=== PATIENT | male | born 1945 | race Caucasian/White ===

== ENCOUNTER 2023-04-21 09:04 | Emergency (ER) | payer MEDICARE, SELFPAY ==
[2023-04-21] VITALS (51 sets, daily range): BP systolic 106–211; BP diastolic 62–104; PULSE 56–70; RESP 12–18; TEMP 36.3–36.7; O2SAT 87–100; BMI 26.6
--- NOTE | 2023-04-21 09:25 | XR_ITS ---
[address] [address] Patient Name: ANN RIVERA MRN: [id number] date: 1945 Sex: M Assigned Patient Location: ER Current Patient Location: ED.MAIN Accession/Order Number: [id number] Exam Date: 04/21/2023 09:30 Report Date: 04/21/2023 10:18 At the request of: CHALINO KAUR Procedure: XR shoulder RT min 2V EXAM: XR shoulder RT min 2V INDICATION: fall c/o pain. COMPARISON: None. TECHNIQUE: Right shoulder, 3 views. FINDINGS: No acute fracture. Dislocation of the acromioclavicular joint with distal clavicle overriding the acromion. The clavicle is elevated 2.7 cm above the base of the acromion. Mild degenerative changes of the glenohumeral joint. XR/XR shoulder RT min 2V IMPRESSION: Type V acromioclavicular joint injury. No fracture identified. Electronically authenticated by: MARTINE FELDER Date: 04/21/2023 10:18
[2023-04-21] MEDS: HYDROMORPHONE HCL 1 MG/ML CARTRIDGE IVP (10:04)
--- NOTE | 2023-04-21 10:04 | ED.UPPEXIN1 ---
HPI - Extremity Injury (Upper) General Chief Complaint: Extremity Injury, Upper Stated Complaint: FALL UPPER EXTREMITY INJURY RIGHT SHOULDER Time Seen by Provider: 04/21/23 09:15 Source: patient Mode of arrival: walk-in Limitations: no limitations History of Present Illness HPI narrative: patient fell in the bathroom last night and injured the right shoulder - he stated that he fell onto the right shoulder but did not hit his head, injure his neck or back or lose consciousness. This morning he could not move the right shoulder. he came to the ED for evaluation. Nothing taken at home for the pain. No prior right shoulder injury or surgery Related Data Previous Rx's Medication Instructions Recorded oxycodone-acetaminophen 5 mg-325 1 tab PO Q6H PRN pain #14 tabs 04/21/23 mg tablet (Percocet) Allergies Allergy/AdvReac Type Severity Reaction Status Date / Time No Known Drug Allergies Allergy Verified 04/21/23 09:20 PFSH PFSH Social History Smoking status: Never smoker Exam Narrative Exam Narrative: Nurses note and vital signs reviewed and patient is not hypoxic. afebrile General: The patient appears well and in no apparent distress. Patient is resting comfortably on cart. GCS = 15. Skin: Warm, dry, no pallor noted. Head: Normocephalic, atraumatic Neck: Supple, trachea mid-line. Full ROM and no cervical spinal tenderness. Eyes: PERRLA, EOMI ENT: No facial injury. Mallampati Class I Cardiovascular: Regular Rate and Rhythm Respiratory: Patient is in no distress, no accessory muscle use, lungs are clear to auscultation, no wheezing, rales or rhonchi Chest Wall: no tenderness, no flail chest, contusion, abrasion, or signs of trauma. Back: No thoracic or lumbar tenderness to palpation. Musculoskeletal: Deformity and step off right shoulder with tenderness at the distal right clavicle. no additional sign of long bone fracture, no right elbow, forearm, wrist or hand tenderness or swelling. Right radial pulse 2+. Moves distal right UE and remaining extremities in all modalities with 5/5 strength. 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 Psychiatric: Cooperative Constitutional Vital Signs, click to edit/add: Last Vital Signs Temp 97.4 F L 04/21/23 10:08 Pulse 61 04/21/23 13:20 Resp 13 04/21/23 10:10 BP 167/91 H 04/21/23 13:20 Pulse Ox 96 04/21/23 13:20 O2 Del Method Nasal Cannula 04/21/23 13:04 O2 Flow Rate 2 04/21/23 13:04 Course Vital Signs Vital signs: Vital Signs Pulse Rate 64 04/21/23 09:17 Respiratory Rate 18 04/21/23 09:17 Blood Pressure 142/84 H 04/21/23 09:17 Pulse Oximetry 99 04/21/23 09:17 Oxygen Delivery Method Room Air 04/21/23 09:17 Temperature 97.4 F L 04/21/23 10:08 Pulse Rate 61 04/21/23 13:20 Respiratory Rate 13 04/21/23 10:10 Blood Pressure 167/91 H 04/21/23 13:20 Pulse Oximetry 96 04/21/23 13:20 Oxygen Delivery Method Nasal Cannula 04/21/23 13:04 Oxygen Delivery Flow Rate 2 04/21/23 13:04 MDM - Extremity Injury (Upper) MDM Narrative Medical decision making narrative: Dislocated right shoulder was identified. Procedural sedation was obtained in order to perform closed reduction of dislocated right shoulder. Postreduction x-rays were obtained after the patient was placed in a sling and swath. The patient's right shoulder is able to be reduced but it keeps slipping out of place. I scheduled him for follow up with Dr De Anda - orthopedist - tomorrow at 9am. I prescribed percocet. He was instructed to keep the sling and swath on until his appointment tomorrow. was present when I reviewed the instructions. I spoke with Dr De Anda by phone and he asked me to get a right shoulder ct before the patient went home. He will review the result on Saturday. Imaging Data xr right shoulder: Radiologist's impression: Patient Name: ANN RIVERA MRN: [id number] date: 1945 Sex: M Assigned Patient Location: ER Current Patient Location: ED.MAIN Accession/Order Number: [id number] Exam Date: 04/21/2023 09:30 Report Date: 04/21/2023 10:18 At the request of: CHALINO KAUR Procedure: XR shoulder RT min 2V EXAM: XR shoulder RT min 2V INDICATION: fall c/o pain. COMPARISON: None. TECHNIQUE: Right shoulder, 3 views. FINDINGS: No acute fracture. Dislocation of the acromioclavicular joint with distal clavicle overriding the acromion. The clavicle is elevated 2.7 cm above the base of the acromion. Mild degenerative changes of the glenohumeral joint. IMPRESSION: Type V acromioclavicular joint injury. No fracture identified. Electronically authenticated by: MARTINE FELDER Date: 04/21/2023 10:18 post reduction right shoulder: Radiologist's impression: Patient Name: ANN RIVERA MRN: [id number] date: 1945 Sex: M Assigned Patient Location: ER Current Patient Location: ED.MAIN Accession/Order Number: [id number] Exam Date: 04/21/2023 10:35 Report Date: 04/21/2023 10:59 At the request of: CHALINO KAUR Procedure: XR shoulder RT min 2V EXAM: XR shoulder RT min 2V INDICATION: closed reduction right shoulder dislocation. COMPARISON: None. TECHNIQUE: Right shoulder, 2 views. FINDINGS: Improved alignment of the right acromioclavicular joint dislocation. The distal clavicle is no longer overriding the acromion. Improved superior displacement of the distal clavicle of 16 mm, previously 27 mm. No fracture identified. Mild degenerative changes of the glenohumeral joint. IMPRESSION: Improved alignment of the AC joint dislocation post reduction. Electronically authenticated by: MARTINE FELDER Date: 04/21/2023 10:59 ct right shoulder: Radiologist's impression: Patient Name: ANN RIVERA MRN: [id number] date: 1945 Sex: M Assigned Patient Location: ER Current Patient Location: ER Accession/Order Number: [id number] Exam Date: 04/21/2023 11:45 Report Date: 04/21/2023 12:49 At the request of: CHALINO KAUR Procedure: CT shoulder RT wo con EXAMINATION: CT shoulder RT wo con HISTORY: right shoulder dislocation COMPARISON: XR shoulder right 04/21/2023 TECHNIQUE: Multi-planar CT images were created without and/or with IV contrast according to examination type. Dose reduction techniques were achieved by using automated exposure control and/or adjustment of mA and/or kV according to patient size and/or use of iterative reconstruction technique. FINDINGS: BONES: Disruption of the acromioclavicular joint with elevation of the distal and of the clavicle 1.1 cm. Degenerative osteophytes along the margins and small separate bone fragment at inferior corner of distal end of clavicle. SOFT TISSUES: No edema, possibly blood products within adjacent soft tissues. EFFUSION: None visible. OTHER: Negative. IMPRESSION: 1. Right acromioclavicular joint separation with small corner fracture involving distal end of clavicle. The degree of dislocation has improved compared to today's original right shoulder radiographs. 2. Degenerative changes of the glenohumeral joint. Electronically authenticated by: BOB JUNG Date: 04/21/2023 12:49 Discharge Plan Discharge Chief Complaint: Extremity Injury, Upper Clinical Impression: Dislocation of shoulder region, Closed fracture of distal clavicle Patient Disposition: Home, Self-Care Time of Disposition Decision: 10:46 Prescriptions / Home Meds: New oxycodone-acetaminophen [Percocet] 5-325 mg tablet 1 tab PO Q6H PRN (Reason: pain) Qty: 14 0RF Instructions: Shoulder Dislocation (ED), Moderate Sedation (ED) Stand Alone Forms: Portal Instructions Referrals: Bob De Anda MD [Physician] - 04/22/23 9:00 am Discharge Date/Time: 04/21/23 13:41 Procedures ED Orthopedic Joint Reduction Orthopedic Joint Reduction Joint #1: Time out performed: Yes Side: right Joint reduction location: shoulder Analgesia: procedural sedation Shoulder technique used (if applicable): external rotation Technique used: direct manipulation Post-reduction neuro exam: intact Post-reduction vascular exam: intact Post-reduction x-ray obtained: Yes Splint applied: Yes Patient tolerated procedure: well Additional comments: procedural sedation: the patient was placed on bus driver/monitor with continuous pulse ox. He was given IV Zofran and IV Dilaudid preprocedure. Verbal and written consent was obtained after discussing the procedure, medications to be used, risks and benefits to the closed reduction of the right shoulder dislocation. Please see the procedural sedation form that I completed. Patient tolerated the sedation procedure well.
[2023-04-21] MEDS: ONDANSETRON PF 4 MG/2 ML VIAL IV (10:05)
[2023-04-21] MEDS: ETOMIDATE 20 MG/10 ML VIAL 15 MG IVP (10:24)
--- NOTE | 2023-04-21 10:32 | XR_ITS ---
[place] [id number] Patient Name: ANN RIVERA MRN: [id number] date: 1945 Sex: M Assigned Patient Location: ER Current Patient Location: ED.[facility] Accession/Order Number: [id number] Exam Date: 04/21/2023 10:35 Report Date: 04/21/2023 10:59 At the request of: CHALINO KAUR Procedure: XR shoulder RT min 2V EXAM: XR shoulder RT min 2V INDICATION: closed reduction right shoulder dislocation. COMPARISON: None. TECHNIQUE: Right shoulder, 2 views. FINDINGS: Improved alignment of the right acromioclavicular joint dislocation. The distal clavicle is no longer overriding the acromion. Improved superior displacement of the distal clavicle of 16 mm, previously 27 mm. No fracture identified. Mild degenerative changes of the glenohumeral joint. XR/XR shoulder RT min 2V IMPRESSION: Improved alignment of the AC joint dislocation post reduction. Electronically authenticated by: MARTINE FELDER Date: 04/21/2023 10:59
--- NOTE | 2023-04-21 11:32 | CT_ITS ---
The [address] [address] Patient Name: ANN RIVERA MRN: [id number] date: 1945 Sex: M Assigned Patient Location: ER Current Patient Location: Accession/Order Number: [id number] Exam Date: 04/21/2023 11:45 Report Date: 04/21/2023 12:49 At the request of: CHALINO KAUR Procedure: CT shoulder RT wo con EXAMINATION: CT shoulder RT wo con HISTORY: right shoulder dislocation COMPARISON: XR shoulder right 04/21/2023 TECHNIQUE: Multi-planar CT images were created without and/or with IV contrast according to examination type. Dose reduction techniques were achieved by using automated exposure control and/or adjustment of mA and/or kV according to patient size and/or use of iterative reconstruction technique. FINDINGS: BONES: Disruption of the acromioclavicular joint with elevation of the distal and of the clavicle 1.1 cm. Degenerative osteophytes along the margins and small separate bone fragment at inferior corner of distal end of clavicle. SOFT TISSUES: No edema, possibly blood products within adjacent soft tissues. EFFUSION: None visible. OTHER: Negative. CT/CT shoulder RT wo con IMPRESSION: 1. Right acromioclavicular joint separation with small corner fracture involving distal end of clavicle. The degree of dislocation has improved compared to today's original right shoulder radiographs. 2. Degenerative changes of the glenohumeral joint. Electronically authenticated by: CHAU JUNG Date: 04/21/2023 12:49
== END 2023-04-21 13:41 | disposition home or self-care (01) ==
PROVIDERS: Emergency Provider Emergency Medicine; PCP Internal Medicine
DX: S43.101A Unspecified dislocation of right acromioclavicular joint, initial encounter (principal); S42.031A Displaced fracture of lateral end of right clavicle, initial encounter for closed fracture; W19.XXXA Unspecified fall, initial encounter
CPT/HCPCS: 23650; 73030; 73200; 96374; 96375; 99152; 99285; J1170

== ENCOUNTER 2023-05-08 12:59 | Outpatient (OUT) | payer MEDICARE, SELFPAY ==
[2023-05-08 14:23] LABS: Estimated Average Glucose 120 mg/dL; Glycohemoglobin A1C 5.8 % (4.5-6.2)
[2023-05-08 14:28] LABS: Creatinine Urine Random 82.53 mg/dL (20.00-300.00); Microalbum Creatinine Ratio Ur 15.7 mg/g (0.0-29.9); Microalbumin Urine Random <1.3 mg/dL (<=30.0)
[2023-05-08 14:51] LABS: Alanine Aminotransferase 20 U/L (16-63); Albumin Globulin Ratio 1.2; Albumin Level 4.1 g/dL (3.4-5.0); Alkaline Phosphatase 54 U/L (46-116); Anion Gap 11.5; Aspartate Amino Transferase 14 U/L (15-37); BUN Creatinine Ratio 17.8; Bilirubin Total 0.6 mg/dL (0.2-1.0); Calcium 9.3 mg/dL (8.5-10.1); Carbon Dioxide 29.5 mmol/L (21.0-32.0); Chloride 102 mmol/L (98-107); Chol HDL Ratio 3.4; Cholesterol 162 mg/dL (<=200); Estimated GFR (African America >60 (>=60); Estimated GFR (Non-African Ame 60 (>=60); Globulin 3.5 g/dL; Glucose 134 mg/dL (74-106); HDL Cholesterol 47 mg/dL (40-60); LDL Cholesterol Calculated 96.2 mg/dL; Sodium 139 mmol/L (136-145); Total Protein 7.6 g/dL (6.4-8.2); Triglycerides 94 mg/dL (<=150); VLDL CHOLESTEROL 18.8 mg/dL
== END 2023-05-08 13:00 | disposition home or self-care (01) ==
LOC: LAB 13:03
PROVIDERS: PCP Internal Medicine; Visit Provider Internal Medicine
DX: E78.5 Hyperlipidemia, unspecified (principal); E11.9 Type 2 diabetes mellitus without complications; I10 Essential (primary) hypertension; E55.9 Vitamin D deficiency, unspecified
CPT/HCPCS: 36415; 80053; 80061; 82043; 82306; 82570; 83036

== ENCOUNTER 2023-11-22 10:46 | Outpatient (OUT) | payer MEDICARE, SELFPAY ==
--- OUTSIDE RECORDS SUMMARY | 2023-11-22 10:58 | XMS_ITS | CCD ---
Author Organization [facility] Care Team Providers Care Inseam Trimming Machine Operator Name Role Phone MANNIE NELSON Primary Care Physician [phone] Renea PARTIDA Attending Unavailable NILL, Renea Loomis Attending Unavailable NILL, Renea Loomis Attending Unavailable NELSON, DR MANNIE Pulido Primary Care Unavailable TIMMIS, DR CAST Admitting Unavailable TIMMIS, DR CAST Attending Unavailable TIMMIS, DR CAST Consulting Unavailable ELIAS, SANDY Consulting Unavailable PILAR II, NAVIN Consulting Unavailable FILUTZE, AKILA Consulting Unavailable NELSON, DR MANNIE Pulido Attending Unavailable NELSON, DR MANNIE Pulido Consulting Unavailable NELSON, DR MANNIE Pulido Primary Care Unavailable NELSON, DR MANNIE Pulido Admitting Unavailable NELSON, DR MANNIE Pulido Attending Unavailable NELSON, DR MANNIE Pulido Admitting Unavailable NELSON, DR MANNIE Pulido Consulting Unavailable NELSON, DR MANNIE Pulido Primary Care Unavailable WEST, DR QUANG Mccallum Consulting Unavailable NILL, DR MEIER Consulting Unavailable NELSON, DR MANNIE Pulido Primary Care Unavailable NILL, DR MEIER Admitting Unavailable NILL, DR MEIER Attending Unavailable GIRALDONELA Consulting Unavailable TIMMIS, DR CAST Admitting Unavailable NELSON, DR MANNIE Pulido Primary Care Unavailable TIMMIS, DR CAST Attending Unavailable TIMMIS, DR CAST Consulting Unavailable ZIEBER, DR CHAU Loomis Consulting Unavailable NILL, DR MEIER Admitting Unavailable NELSON, DR MANNIE Pulido Primary Care Unavailable NILL, DR MEIER Attending Unavailable NILL, DR MEIER Consulting Unavailable ELIAS, SANDY Consulting Unavailable ORA NOGUEIRA Consulting Unavailable BE BAUMAN Consulting Unavailable Leslie WELCH, Mannie De La Cruz Primary Care Provider Louise EVERETT, Dee Unavailable Jacquelyn WELCH, John Unavailable Gokul FRONT END SOFTWARE ENGINEER.RENTAL AGENT, Maryam Unavailable [phone] Paulino HORNER, Rafael Unavailable Yordan Feliz MD Unavailable [phone] Marysol Martinez Unavailable Unavailable Candida RD, Dee Unavailable Vidal WELCH, [facility] Primary Care Provider [phone], Dee Unavailable Paulino HORNER, Rafael Unavailable [phone] Vidal WELCH, [facility] Primary Care Provider [phone], [facility] Primary Care Unavailable [facility] Primary Care Unavailable ABHYANKAR, JOHN Referring Unavailable [facility] Primary Care Unavailable MARYAM HODGSON Referring Unavailable ABHYANKAR, JOHN Attending Unavailable [facility] Primary Care Unavailable ABHYANKAR, JOHN Referring Unavailable [facility] Primary Care Unavailable [facility], [facility] Primary Care Unavailable Yordan FELIZ Referring Unavailable [facility] Primary Care Unavailable [facility] Primary Care Unavailable MARYAM HODGSON Referring Unavailable ABHYANKAR, JOHN Attending Unavailable [facility] Primary Care Unavailable Yordan FELIZ Referring Unavailable Yordan FELIZ Attending Unavailable [facility] Primary Care Unavailable [facility] Primary Care Unavailable MARYAM HODGSON Referring Unavailable ABHYANKAR, JOHN Attending [facility] Unavailable Yordan FELIZ Referring Unavailable Yordan FEILZ Attending Unavailable [facility] Primary Care Unavailable [facility] Primary Care Unavailable MARYAM HODGSON Referring Unavailable ABHYANKAR, JOHN Attending Unavailable [facility] Primary Care Unavailable Yordan FELIZ Attending Unavailable [facility] Primary Care Unavailable GOKULMARYAM Referring Unavailable ABHYANKAR, JOHN Attending Unavailable [facility] Primary Care Unavailable Yordan FELIZ Attending Unavailable SERENE MORALES Attending Unavailable SERENE MORALES Attending Unavailable SHAIKH DRAKE Attending Unavailable SERENE MORALES Attending Unavailable SERENE MORALES Attending Unavailable SERENE MORALES Attending Unavailable SHAIKH DRAKE Referring Unavailable SERENE MORALES Attending Unavailable Allergies Allergy Classification Reported Allergen(s) Allergy Type Date of Onset Reaction(s) Facility (1 source) No Known Medication Allergies; Translations: [No Known Medication Allergies] Propensity to adverse reactions (disorder) [facility] Medications Current Medications Medication Drug Class(es) Dates Sig (Normalized) Sig (Original) aspirin 81 mg delayed release oral tablet (20 sources) Platelet Aggregation Inhibitor, Nonsteroidal Anti-inflammatory Drug Start: 04-18-2020 take 1 tablet by mouth once daily aspirin 81 mg Oral EC Tab 81 mg = 1 tab(s), Oral, Daily, Refills(s) 0 Start Date: 04/18/20 Status: Ordered Aspirin 81 mg ta b 81 mg every other day. 0 Active take 1 tablet by mouth once rachael y Aspirin 81 mg tab Take 81 mg by mouth once daily. 0 Active Comment on above: Take 81 mg by mouth once daily. 81 mg every other da y. cefuroxime 500 mg oral tablet (5 sources) Cephalosporin Antibacterial Start: 023 End: 023 take 1 tablet by mouth twice daily cefUROXime (CEFTIN) 500 mg tablet Take 1 tablet by mouth twice daily for 10 days. 20 tablet 0 10/01/2022 10/11/2022 Active Comment on above: Take 1 tablet by [facility] twice daily for 10 days. cholecalciferol 1.25 mg oral capsule (2 sources) Vitamin D Start: 024 take 1 capsule by mouth every week cholecalciferol, Vitamin D3, (VITAMIN D3) 1,250 mcg (50,000 unit) cap capsule Take 1 capsule by mouth one time a week. 0 10/01/2023 Active Comment on above: Take 1 capsule by [facility] one time a week. ergocalciferol 1.25 mg oral capsule (20 sources) Provitamin D2 Compound Start: 020 take 1 capsule by mouth every week ergocalciferol 50,000 unit capsule (VITAMIN D2, DRISDOL) TAKE 1 CAPSULE BY MOUTH WEEKLY 0 07/05/2022 Active Comment on above: TAKE [address] [facility] WEEKLY fenofibrate 134 mg oral capsule (20 sources) Peroxisome Proliferator Receptor alpha Agonist Start: take 1 capsule by mouth once daily fenofibrate (LOFIBRA) 134 mg capsule Take 134 mg by mouth once daily. 0 03/02/2016 Active Comment on above: Take 134 mg by mouth once daily. iv contrast (will be provided with radiology test) (4 sources) Start: End: iv contrast (will be provided with radiology test) Indications: 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) , Lung nodules CT Chest W -Inject, intravenously, once for 1 dose.No IV access, insert saline lock prior to the beginning of sedation, infusion, injection of imaging exam. Discontinue saline lock post exam. If Pt. has a central line or IVAD, may access for administration according to line specific nursing protocol. Once exam is complete flush line and de-access according to line specific nursing protocol in the CT contrast administration guidelines link. 1 Each 0 10/23/2023 10/24/2023 Active Start: 10-23-2023 End: 10-23-2023 inject 1 dose intravenously once, then inject 1 dose intravenously once iv contrast (will be provided with radiology test) Indications: 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) , Lung nodules Inject 1 Each intravenously one time only for [address] Neck W IVCON No IV access, insert saline lock prior to the sedation, infusion, injection for imaging exam. Discontinue saline lock post exam. If Pt. has a central line or IVAD, may access for administration according to line specific nursing protocol. Once exam is complete flush line and de-access according to line specific nursing protocol in the CT contrast administration guidelines link. 1 Each 0 10/23/2023 10/23/2023 Start: 03-20-2023 End: 03-21-2023 iv contrast (will be provide d with radiology test) Indications: 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) , Mass of right lung CT Chest W -Inject, intravenously, once for 1 dose.No IV access, insert saline lock prior to the beginning of sedation, infusion, injection of imaging exam. Discontinue saline lock post exam. If Pt. has a central line or IVAD, may access for administration according to line specific nursing protocol. Once exam is complete flush line and de-access according to line specific nursing protocol in the CT contrast administration guidelines link. 1 Each 0 03/20/2023 03/21/2023 Active Start: 02-06-2023 End: 02-07-2023 iv contrast (will be provide d with radiology test) CT Chest W -Inject, intravenously, once for 1 dose.No IV access, insert saline lock prior to the beginning of sedation, infusion, injection of imaging exam. Discontinue saline lock post exam. If Pt. has a central line or IVAD, may access for administration according to line specific nursing protocol. Once exam is complete flush line and de-access according to line specific nursing protocol in the CT contrast administration guidelines link. 1 Each 0 02/06/2023 02/07/2023 Active Comment on above: CT Chest W -Inject, intravenously, once for 1 dose.No IV access, insert saline lock prior to the beginning of sedation, infusion, injection of imaging exam. Discontinue saline lock post exam. If Pt. has a central line or IVAD, may access for administration according to line specific nursing protocol. Once exam is complete flush line and de-access according to line specific nursing protocol in the CT contrast administration guidelines link. Inject 1 Each intrav enously one time only for [address] Neck W IVCON No IV access, insert saline lock prior to the sedation, infusion, injection for imaging exam. Discontinue saline lock post exam. If Pt. has a central line or IVAD, may access for administration according to line specific nursing protocol. Once exam is complete flush line and de-access according to line specific nursing protocol in the CT contrast administration guidelines link. latanoprost 0.05 mg/ml ophthalmic solution (4 sources) Prostaglandin Analog Start: 05-01-20 23 take 1 drop(s) into the eye(s) at bedtime latanoprost (XALATAN) 0.005 % ophthalmic solution instill 1 (ONE) DROP IN BOTH EYES AT BEDTIME 0 05/01/2023 Active Comment on above: instill 1 (ONE) DROP IN BOTH EYES AT BEDTIME metFORMIN hydrochloride 500 mg oral tablet (20 sources) Biguanide Start: 06-12-20 22 take 1 tablet by mouth once daily metFORMIN (GLUCOPHAGE) 500 mg tablet Take 500 mg by mouth once daily. 0 06/12/2022 Active Start: 06-12-2022 take 2 tablets by mo uth once daily in the morning, then take 1 tablet by mouth in the evening metFORMIN (GLUCOPHAGE) 500 mg tablet TAKE 2 TABLETS BY MOUTH EVERY MORNING and TAKE 1 TABLET BY MOUTH IN THE EVENING 0 06/12/2022 Active Start: 04-18-2020 take 1 tablet by mk th in the evening metFORMIN (GLUCOPHAGE) 500 mg tablet Take 500 mg by mouth as directed. 1 AM/1 PM 0 06/12/2022 Active Comment on above: TAKE 2 TABLETS BY MO UTH EVERY MORNING and TAKE 1 TABLET BY MOUTH IN THE EVENING Take 500 mg by mouth as directed. 1 AM/1 PM Take 500 mg by mouth once daily. 24 hr metoprolol succinate 25 mg extended release oral tablet (20 sources) beta-Adrenergic Jose Start: 06-12-2022 take 1 tablet by mouth once daily metoprolol succinate ER (TOPROL XL) 25 mg 24 hr tablet Take 25 mg by mouth once daily. 0 06/12/2022 Active Start: 04-18-2020 take 1 tablet by mk th once daily Metoprolol succinate 25 mg ER Tablet 1 tab, Oral, Daily, Refills(s) 0 Start Date: 04/18/20 Status: Ordered Comment on above: Take 25 mg by mouth once daily. Completed/Discontinued Medications Medication Drug Class(es) Dates Sig (Normalized) Sig (Original) atenolol 25 mg oral tablet (4 sources) beta-Adrenergic Jose Start: 11-12-2012 End: 08-16-2022 take 1 tablet by mouth once daily ATENOLOL 25 mg tablet Take 25 mg by mouth once daily. 0 11/12/2012 08/16/2022 Discontinued (Discontinued by another Health Care Provider) Comment on above: Take 25 mg by mouth once daily. ciprofloxacin 500 mg oral tablet (7 sources) Quinolone Antimicrobial Start: 10-19-2022 End: 11-02-2022 take 1 tablet by mouth twice daily ciprofloxacin HCl (CIPRO) 500 mg tablet Take 1 tablet by mouth twice daily for 14 days. 28 tablet 0 10/19/2022 11/02/2022 Comment on above: Take 1 tablet by mk th twice daily for 14 days. ondansetron 8 mg oral tablet (20 sources) Serotonin-3 Receptor Antagonist Start: 08-21-2022 End: 05-08-2023 take 1 tablet by mouth every eight hours as needed ondansetron (ZOFRAN) 8 mg tablet Take 1 tablet by mouth every 8 hours as needed for nausea/vomiting. 90 tablet 1 08/21/2022 05/08/2023 Discontinued (Discontinued by Patient) Comment on above: Take 1 tablet by mk th every 8 hours as needed for nausea/vomiting. prochlorperazine 10 mg oral tablet (20 sources) Phenothiazine Start: 08-21-2022 End: 05-08-2023 take 1 tablet by mouth every six hours as needed prochlorperazine (COMPAZINE) 10 mg tablet Take 1 tablet by mouth every 6 hours as needed. 100 tablet 1 08/21/2022 05/08/2023 Discontinued (Discontinued by Patient) Comment on above: Take 1 tablet by mk th every 6 hours as needed. Problems Active Problems Problem Classification Problem Date Documented Da te Episodic/Chronic Calculus of urinary tract (1 source) Personal history of urinary calculi; Translations: [PERSONAL HISTORY OF URINARY CALCULI] Onset: 3 Episodic Cancer of colon (20 sources) Malignant tumor of colon; Translations: [Malignant neoplasm of colon, unspecified] Onset: 3 Resolved: 5 11-19-2012 Chronic Cancer of colon (9 sources) History of malignant neoplasm of colon; Translations: [Personal history of other malignant neoplasm of large intestine] Onset: 2 Episodic Cancer of head and neck (20 sources) Malignant neoplasm of base of tongue; Translations: [Malignant tumor of tongue] Onset: 3 Chronic Chronic kidney disease (15 sources) Chronic kidney disease stage 3; Translations: [Stage 3 chronic kidney disease, unspecified whether stage 3a or 3b CKD (HCC)] Onset: 3 Chronic Coronary atherosclerosis and other heart disease (4 sources) History of myocardial infarction; Translations: [Atherosclerotic heart disease of [place] coronary artery without angina pectoris] Onset: 3 04-18-2020 Chronic Diabetes mellitus without complication (8 sources) Type 2 diabetes mellitus; Translations: [Type 2 diabetes mellitus without complications] Onset: 2 04-18-2020 Chronic Disorders of lipid metabolism (4 sources) Hypercholesterolemia; Translations: [Pure hypercholesterolemia, unspecified] Onset: 3 04-18-2020 Chronic Esophageal disorders (3 sources) Gastroesophageal reflux disease; Translations: [Gastro-esophageal reflux disease without esophagitis] Onset: 3 04-18-2020 Chronic Essential hypertension (4 sources) Hypertensive disorder; Translations: [Essential (primary) hypertension] Onset: 3 04-18-2020 Chronic Hepatitis (2 sources) Nonalcoholic steatohepatitis 06-13-2022 Chronic Nutritional deficiencies (2 sources) Vitamin D deficiency 04-18-2020 Chronic Other aftercare (1 source) correction (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 of anticoagulants; Translations: [RESIDENTIAL CURRNT USE ANTICOAGULANTS] Onset: 3 Episodic Other aftercare (1 source) keno terminal operator (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 of oral hypoglycemic drugs; Translations: [LICENSED OPTICAL DISPENSER USE ORAL HYPOGLYCEMIC DX] Onset: 3 Episodic Other aftercare (1 source) keno terminal operator (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 of aspirin; Translations: [RESIDENTIAL CURRENT USE OF ASPIRIN] Onset: 3 Episodic Other and unspecified benign neoplasm (5 sources) History of polyp of colon; Translations: [Personal history of colonic polyps] Onset: 2 Episodic Other and unspecified benign neoplasm (1 source) Personal history of colonic polyps; Translations: [PERSONAL HISTORY OF COLONIC POLYPS] Onset: 3 Episodic Other and unspecified benign neoplasm (1 source) Benign neoplasm of ascending colon; Translations: [BENIGN NEOPLASM OF ASCENDING COLON] Onset: 3 Episodic Other and unspecified benign neoplasm (1 source) Benign neoplasm of descending colon; Translations: [BENIGN NEOPLASM OF DESCENDING COLON] Onset: 3 Episodic Other circulatory disease (2 sources) Raynaud's disease 04-18-2020 Chronic Other connective tissue disease (2 sources) Diastasis recti 04-20-2020 Episodic Other gastrointestinal disorders (1 source) Dysphagia, unspecified; Translations: [DYSPHAGIA UNSPECIFIED] Onset: 3 Episodic Other liver diseases (1 source) Fatty (change of) liver, not elsewhere classified; Translations: [FATTY CHANGE LIVER NEC] Onset: 2 Chronic Other lower respiratory disease (2 sources) Lung mass; Translations: [Other nonspecific abnormal finding of lung field] 02-06-2023 Episodic Other lower respiratory disease (2 sources) Multiple nodules of lung; Translations: [Other nonspecific abnormal finding of lung field] 02-06-2023 Episodic Other lower respiratory disease (1 source) Nodule of lung; Translations: [Solitary pulmonary nodule] 02-11-2023 Episodic Other lower respiratory disease (2 sources) Other nonspecific abnormal finding of lung field; Translations: [Lung nodules] Onset: 3 Episodic Other male genital disorders (2 sources) Disorder of prostate 04-18-2020 Episodic Other nutritional; endocrine; and metabolic disorders (9 sources) Disorder of carbohydrate metabolism; 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, unspecified] Onset: 3 04-18-2020 Chronic Other nutritional; endocrine; and metabolic disorders (2 sources) Overweight in adulthood with body mass index of 25 or more but less than 30 06-13-2022 Episodic Other screening for suspected conditions (not mental disorders or infectious disease) (1 source) Abnormal findings on diagnostic imaging of other specified body structures; Translations: [ABNORML FIND DX IMG OTH BODY STRUC] Onset: 3 Chronic Other upper respiratory disease (1 source) Unspecified voice and resonance disorder; Translations: [UNS VOICE AND RESONANCE DISORDER] Onset: 3 Episodic Peripheral and visceral atherosclerosis (2 sources) Arteriosclerotic vascular disease 04-18-2020 Chronic Thyroid disorders (5 sources) Iodine-deficiency related diffuse (endemic) goiter; Translations: [IODINE-DEFIC REL DIFFUSE GOITER] Onset: 2 Chronic Thyroid disorders (1 source) Disorder of thyroid gland; Translations: [Other specified disorders of thyroid] 05-08-2023 Episodic Unclassified (1 source) CONTACT W/AND (SUSP) EXPOS COVID-19; Translations: [CONTACT W/AND (SUSP) EXPOS COVID-19] Onset: 3 Past or Other Problems Problem Classification Problem Date Documented Da te Episodic/Chronic Diseases of white blood cells (19 sources) 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; Translations: [Agranulocytosis secondary to cancer chemotherapy] Onset: 10-19-2022 Resolved: 10-23-2023 Chronic Other male genital disorders (1 source) Disorder of prostate, unspecified; Translations: [DISORDER OF PROSTATE UNSPECIFIED] Onset: 03-01-2022 Episodic Results Test Name Value Interpretation Reference Range Facility 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 INTERVAL HISTORY: Doing well. Eating fairly well. Has some mild issues with phlegm, no hemoptysis. No fever. Energy level good. No neck pain or otalgia. LABORATORY: Latest Reference Range AND Units 10/16/23 10:46 10/23/23 10:52 Free T4 0.9 - 1.7 ng/dL 1.2 TSH 0.270 - 4.200 mIU/L 2.750 T3 79 - 165 ng/dL 93 WBC 3.70 - 11.00 k/uL 3.08 (L) RBC 4.20 - 6.00 m/uL 4.18 (L) Hemoglobin 13.0 - 17.0 g/dL 12.6 (L) Hematocrit 39.0 - 51.0 % 37.9 (L) Platelet Count 150 - 400 k/uL 183 MCV 80.0 - 100.0 fL 90.7 MCH 26.0 - 34.0 pg 30.1 MCHC 30.5 - 36.0 g/dL 33.2 MPV 9.0 - 12.7 fL 9.1 RDW-CV 11.5 - 15.0 % 13.8 DTYPE Auto Neut% % 71.2 Abs Neut (ANC) 1.45 - 7.50 k/uL 2.19 Lymph% % 15.6 Abs Lymph 1.00 - 4.00 k/uL 0.48 (L) [place]% % 10.4 Abs [place] <0.87 k/uL 0.32 Eosin% % 1.6 Abs Eosin <0.46 k/uL 0.05 Baso% % 0.6 Abs Baso <0.11 k/uL <0.03 Immature Gran % % 0.6 IMMATURE GRANS (ABS) <0.10 k/uL <0.03 NRBC /100 WBC 0.0 Absolute nRBC <0.01 k/uL <0.01 (L): Data is abnormally low RADIOLOGY: CT Neck 10/16/23: IMPRESSION: Primary: NI-RADS 1. Expected post-treatment changes in the neck without evidence of recurrent disease in the primary site. Neck: NI-RADS 1. No evidence of abnormal lymph nodes. CT Chest 10/16/23: 1. Stable appearance of patchy groundglass opacities in the left upper lobe. Stable 4 mm nodular opacity along the right major fissure. No new or enlarging nodules are seen. 2. Stable mildly prominent subcarinal node. No new bulky intrathoracic adenopathy. CT Chest 03/14/23: 1. On patient's prior PET/CT from 01/29/2023, there was a 2.3 x 2.2 cm solid hypermetabolic nodule in the anterior right upper lobe. On today's exam, this is moderately to markedly decreased in density and now represents an area of groundglass opacity measuring over an area of approximately 2.3 x 2.2 cm in size. If this has not undergone interval treatment, then this may represent an infectious/inflammato ry focus which is improving. There is an adjacent subcentimeter nodule which is also decreased in density. Finally, there is a 3 mm solid nodule in the anterior right lower lobe which was not clearly seen on the prior PET/CT. However, differences in technique limit the comparison. Would advise continued imaging follow-up with the next chest CT in 3 months. PET/CT 01/29/2023:1. Neck: No suspicious hypermetabolic foci. Posttreatment change. 2. Chest: New hypermetabolic right upper lobe lung nodule. Differential includes inflammatory/neoplast ic process. 3. Abdomen and pelvis: No evidence of FDG avid neoplastic process 4. Skeleton: No hypermetabolic osseous lesions ALLERGIES No Known Allergies MEDICATIONS: cholecalciferol, Vitamin D3, (VITAMIN D3) 1,250 mcg (50,000 unit) cap capsule Take 1 capsule by mouth one time a week. latanoprost (XALATAN) 0.005 % ophthalmic solution instill 1 (ONE) DROP IN BOTH EYES AT BEDTIME ergocalciferol 50,000 unit capsule (VITAMIN D2, DRISDOL) TAKE 1 CAPSULE BY MOUTH WEEKLY metFORMIN (GLUCOPHAGE) 500 mg tablet Take 500 mg by mouth once daily. metoprolol succinate ER (TOPROL XL) 25 mg 24 hr tablet Take 25 mg by mouth once daily. fenofibrate (LOFIBRA) 134 mg capsule Take 134 mg by mouth once daily. Aspirin 81 mg tab 81 mg every other day. REVIEW OF SYSTEMS: PAIN ASSESSMENT: Negative for pain, history of chronic pain, or current treatment for a chronic pain condition. NECK: Negative for goiter, pain or significant neck swelling RESPIRATORY: Negative for cough, hemoptysis, wheezing, COPD, dyspnea or shortness of breath CARDIOVASCULAR: Negative for chest pain, leg swelling, hypertension, CHF or palpitations GI: No nausea, vomiting, or diarrhea : No history of dysuria, frequency or incontinence MUSCULOSKELETAL: Negative for joint pain or swelling, back pain or muscle pain NEURO: No history of headaches, syncope, paralysis, seizures or tremors The remainder of the review of systems is negative. PHYSICAL EXAM: 11/06/23 0951 BP: 163/77 (more content not included)... Normal [facility] CNOVSPon 10-23-2023 CNOVS Visit (SP) Office ([place]) DKPEGGYMANISH D ([id number]) 1945 M Date Time Provider Department 10/23/23 10:45 AM JOHN ENGLAND During your visit today, we recorded the following information about you: Temperature Pulse Respiration Blood pressure 97.8 degrees 54/minute 16/minute 144/70 Weight Height 87.5 kg 1.669 m John England MD 10/23/2023 10:31 PM Signed NAME: Manish Root CLINIC NO.: [id number] DATE OF SERVICE: October 23, 2023 (Jacquelyn) Some elements in this clinic note that are critical to medical decision making have been carefully reviewed and included from a prior clinic note dated: June 19, 2023 (Jacquelyn) Referring Provider: Dr. Татьяна Feliz Additional Clinicians involved in Manish Yi Root's care: Serene Morales DIAGNOSIS: Base of Tongue squamous cell ca. ASSESSMENT: 77 year old man with base of tongue squamous cell carcinoma, p16 positive, in July 2022 following voice changes in June 2022. He has a prior history of colon cancer in 1999. July 31, 2022 - Stage : T3 N1a M0 Completed treatment and is eating better. Neutropenia resolved. January 2023 PET with right lung lesion - repeat imaging with CT chest @ 6 weeks March 2023 showed involution of the lesion and now only ground glass opacity. PLAN: CT Neck and Chest in 6 months Labs same day, include anemia workup RTC 1 week after to review - HPI: CASE HISTORY: Reverse Chronological Order 10/16/2023 - CT Neck AND Chest: Neck: NI-RADS 1. Expected post-treatment changes in the neck without evidence of recurrent disease in the primary site. No evidence of abnormal lymph nodes. Chest: Stable appearance of patchy groundglass opacities in the left upper lobe. Stable 4 mm nodular opacity along the right major fissure. No new or enlarging nodules are seen. Stable mildly prominent subcarinal node. No new bulky intrathoracic adenopathy. 06/12/2023 - CT Chest - Since 03/14/2023, near complete resolution of right upper lobe mass/groundglass opacification New patchy regions of groundglass opacification within the anterior left upper lobe, compatible with new sites of infection/inflammatio n. 03/14/2023 - CT Chest - On patient's prior PET/CT from 01/29/2023, there was a 2.3 x 2.2 cm solid hypermetabolic nodule in the anterior right upper lobe. On today's exam, this is moderately to markedly decreased in density and now represents an area of groundglass opacity measuring over an area of approximately 2.3 x 2.2 cm in size. If this has not undergone interval treatment, then this may represent an infectious/inflammato ry focus which is improving. There is an adjacent subcentimeter nodule which is also decreased in density. Finally, there is a 3 mm solid nodule in the anterior right lower lobe which was not clearly seen on the prior PET/CT. 01/29/2023 - PET/CT Chest: New hypermetabolic right upper lobe lung nodule. Differential includes inflammatory /neoplastic process 09/03/2022 - 10/08/2022 - Cisplatin total dose 240 mg/m2 with RT 07/31/2022 - Examination under anesthesia/panendosco py. Findings included a friable exophytic mass left base of tongue extending into the vallecula. No other significant findings on laryngoscopy. 07/27/2022 - CT neck with contrast: Demonstrated a 5 x 4.5 x 2.5 cm mass arising from the left base of tongue injecting into the hypopharynx and displacing the epiglottis posterior and inferior with narrowing of the hypopharynx. In addition a level 2 left-sided lymph node measuring 1.7 x 1.0 x 1.0 cm suspicious for metastatic disease. 06/2022 - voice changed and trouble swallowing. 02/2022 - started losing weight 1999 - Colon Ca Stage 3 - 2/5 LN + [place] regimen on protocol Updated Visit, October 23, 2023: Manish returns today with Jahaira. We discussed he recent CT scans - both appear stable. He has been continuing follow up with Dr. Morales, so we can space out his visits with me. Kidney function stable, WBC is lower and he is more anemic than in the past. He endorses drinking more water recently. Updated Visit, June 19, 2023: Manish presents with his Jahaira. He is doing well. Reviewed his scans with him and not new changes with prior resolution of abnormalities. Kidney function remains decreased but he doesn't drink much water ever. Updated Visit, March 20, 2023: Feels great and has recovered from upper respiratory infection. Reviewed CT and showed improvement. Updated Visit, February 06, 2023: Doing ok but has productive cough and vocal changes Reviewed PET showing a new consolidation in right lung that could be infectious / malignant. Will repeat CT Chest. He is anxious. Updated Visit, November 07, 2022: Manish returns with Jahaira. Eating is much better but (more content not included)... Normal [facility] T3 SerPl-mCncon 10-23-2023 T3 [Mass/Vol] 93 ng/dL Normal 79-165 [facility] Comment on above: Order Comment: Specbeverley beauchamp Type: BLOOD SPECIMEN Ordering Facility: [facility] Address: [address] [address] Performed By: #### 2 4323-8 #### [facility] CLIA [id number] [address] [place] [address] T4 Free SerPl-mCncon 024 Free T4 [Mass/Vol] 1.2 ng/dL Normal 0.9-1.7 [facility] Comment on above: Order Comment: Marleen beauchamp Type: BLOOD SPECIMEN Ordering Facility: [facility] Address: [address] [address] Performed By: #### 2 4323-8 #### [facility] CLIA [id number] [address] [place] [address] TSH SerPl-aCncon 10-23-2023 TSH Qn 2.750 m[IU]/L Normal 0.270-4.200 [facility] Comment on above: Order Comment: Speci men Type: BLOOD SPECIMEN Ordering Facility: [facility] Address: [address] [address] Performed By: #### 2 4323-8 #### [facility] CLIA [id number] [address] [place] [address] 66500 CBC W Auto Differential pane l (Bld)on 10-16-2023 Basophils (Bld) [#/Vol] 10*3/uL Normal <0.11 [facility] Comment on above: Order Comment: Speci men Type: BLOOD SPECIMEN Ordering Facility: [facility] Address: [address] [address] Performed By: #### 2 4323-8 #### [facility] CLIA [id number] [address] [place] [address] 61035 Basophils/100 WBC (Bld) 0.6 % Normal [facility] Comment on above: Order Comment: Speci men Type: BLOOD SPECIMEN Ordering Facility: [facility] Address: [address] [address] Performed By: #### 2 4323-8 #### [facility] CLIA [id number] [address] [place] [address] 54097 Differential cell count method Nom (Bld) Auto Normal [facility] Comment on above: Order Comment: Speci men Type: BLOOD SPECIMEN Ordering Facility: [facility] Address: [address] [address] Performed By: #### 2 4323-8 #### [facility] CLIA [id number] [address] [place] [address] 51244 Eosinophils (Bld) [#/Vol] 0.05 10*3/uL Normal <0.46 [facility] Comment on above: Order Comment: Speci men Type: BLOOD SPECIMEN Ordering Facility: [facility] Address: [address] [address] Performed By: #### 2 4323-8 #### [facility] CLIA [id number] [address] [place] [address] 85089 Eosinophils/100 WBC (Bld) 1.6 % Normal [facility] Comment on above: Order Comment: Speci men Type: BLOOD SPECIMEN Ordering Facility: [facility] Address: [address] [address] Performed By: #### 2 4323-8 #### [facility] CLIA [id number] [address] [place] [address] 41450 Erythrocyte distribution width (RBC) [Ratio] 13.8 % Normal 11.5-15.0 [facility] Comment on above: Order Comment: Speci men Type: BLOOD SPECIMEN Ordering Facility: [facility] Address: [address] [address] Performed By: #### 2 4323-8 #### [facility] CLIA [id number] [address] [place] [address] 16588 Hematocrit (Bld) [Volume fraction] 37.9 % Low 39.0-51.0 [facility] Comment on above: Order Comment: Speci men Type: BLOOD SPECIMEN Ordering Facility: [facility] Address: [address] [address] Performed By: #### 2 4323-8 #### [facility] CLIA [id number] [address] [place] [address] 25960 Hemoglobin (Bld) [Mass/Vol] 12.6 g/dL Low 13.0-17.0 [facility] Comment on above: Order Comment: Speci men Type: BLOOD SPECIMEN Ordering Facility: [facility] Address: [address] [address] Performed By: #### 2 4323-8 #### [facility] CLIA [id number] [address] [place] [address] 69392 Immature granulocytes (Bld) [#/Vol] 10*3/uL Normal <0.10 [facility] Comment on above: Order Comment: Speci men Type: BLOOD SPECIMEN Ordering Facility: [facility] Address: [address] [address] Performed By: #### 2 4323-8 #### [facility] CLIA [id number] [address] [place] [address] 58557 Immature granulocytes/100 WBC (Bld) 0.6 % Normal [facility] Comment on above: Order Comment: Speci men Type: BLOOD SPECIMEN Ordering Facility: [facility] Address: [address] [place] [address] Performed By: #### 2 4323-8 #### [facility] CLIA [id number] [address] [place] [address] 09881 Lymphocytes (Bld) [#/Vol] 0.48 10*3/uL Low 1.00-4.00 [facility] Comment on above: Order Comment: Speci men Type: BLOOD SPECIMEN Ordering Facility: [facility] Address: [address] [place] [address] Performed By: #### 2 4323-8 #### [facility] CLIA [id number] [address] [place] [address] 65192 Lymphocytes/100 WBC (Bld) 15.6 % Normal [facility] Comment on above: Order Comment: Speci men Type: BLOOD SPECIMEN Ordering Facility: [facility] Address: [address] [place] [address] Performed By: #### 2 4323-8 #### [facility] CLIA [id number] [address] [place] [address] 10308 MCH (RBC) [Entitic mass] 30.1 pg Normal 26.0-34.0 [facility] Comment on above: Order Comment: Speci men Type: BLOOD SPECIMEN Ordering Facility: [facility] Address: [address] [place] [address] Performed By: #### 2 4323-8 #### [facility] CLIA [id number] [address] [place] [address] 02183 MCHC (RBC) [Mass/Vol] 33.2 g/dL Normal 30.5-36.0 [facility] Comment on above: Order Comment: Speci men Type: BLOOD SPECIMEN Ordering Facility: [facility] Address: [address] [address] Performed By: #### 2 4323-8 #### [facility] CLIA [id number] [address] [place] [address] 93158 MCV (RBC) [Entitic vol] 90.7 fL Normal 80.0-100.0 [facility] Comment on above: Order Comment: Speci men Type: BLOOD SPECIMEN Ordering Facility: [facility] Address: [address] [address] Performed By: #### 2 4323-8 #### [facility] CLIA [id number] [address] [place] [address] 31984 Monocytes (Bld) [#/Vol] 0.32 10*3/uL Normal <0.87 [facility] Comment on above: Order Comment: Speci men Type: BLOOD SPECIMEN Ordering Facility: [facility] Address: [address] [address] Performed By: #### 2 4323-8 #### [facility] CLIA [id number] [address] [place] [address] 13104 Monocytes/100 WBC (Bld) 10.4 % Normal [facility] Comment on above: Order Comment: Speci men Type: BLOOD SPECIMEN Ordering Facility: [facility] Address: [address] [address] Performed By: #### 2 4323-8 #### [facility] CLIA [id number] [address] [place] [address] 20631 Neutrophils (Bld) [#/Vol] 2.19 10*3/uL Normal 1.45-7.50 [facility] Comment on above: Order Comment: Speci men Type: BLOOD SPECIMEN Ordering Facility: [facility] Address: [address] [address] Performed By: #### 2 4323-8 #### [facility] CLIA [id number] [address] [place] [address] 91415 Neutrophils/100 WBC (Bld) 71.2 % Normal [facility] Comment on above: Order Comment: Speci men Type: BLOOD SPECIMEN Ordering Facility: [facility] Address: [address] Performed By: #### 2 4323-8 #### [facility] CLIA [id number] [address] [place] [address] 55573 Nucleated RBC (Bld) [#/Vol] 10*3/uL Normal <0.01 [facility] Comment on above: Order Comment: Speci men Type: BLOOD SPECIMEN Ordering Facility: [facility] Address: [address] [address] Performed By: #### 2 4323-8 #### [facility] CLIA [id number] [address] [place] [address] 37070 Nucleated RBC/100 WBC (Bld) [Ratio] 0.0 /100 WBC Normal [facility] Comment on above: Order Comment: Speci men Type: BLOOD SPECIMEN Ordering Facility: [facility] Address: [address] Performed By: #### 2 4323-8 #### [facility] CLIA [id number] [address] [place] [address] 18007 Platelet mean volume (Bld) [Entitic vol] 9.1 fL Normal 9.0-12.7 [facility] Comment on above: Order Comment: Speci men Type: BLOOD SPECIMEN Ordering Facility: [facility] Address: [address] Performed By: #### 2 4323-8 #### [facility] CLIA [id number] [address] [place] [address] 96572 Platelets (Bld) [#/Vol] 183 10*3/uL Normal 150-400 [facility] Comment on above: Order Comment: Speci men Type: BLOOD SPECIMEN Ordering Facility: [facility] Address: [address] Performed By: #### 2 4323-8 #### [facility] CLIA [id number] [address] [place] [address] RBC (Bld) [#/Vol] 4.18 10*6/uL Low 4.20-6.00 [facility] Comment on above: Order Comment: Speci men Type: BLOOD SPECIMEN Ordering Facility: [facility] Address: [address] [place] [address] Performed By: #### 2 4323-8 #### [facility] CLIA [id number] [address] [place] [address] WBC (Bld) [#/Vol] 3.08 10*3/uL Low 3.70-11.00 [facility] Comment on above: Order Comment: Speci men Type: BLOOD SPECIMEN Ordering Facility: [facility] Address: [address] [place] [address] Performed By: #### 2 4323-8 #### [facility] CLIA [id number] [address] [place] [address] 72471 Kane 10-16-2023 CNPN Telephone (HEMASA) MANISH ROOT ([id number]) 1945 M Date Time Provider Department 10/16/23 RAFAEL MENG HEMASA During your visit today, we recorded the following information about you: Rafael Meng RN 10/16/2023 1:17 PM Signed Pt had labs drawn today. Requests that the results be faxed to his PCP, Dr Drake. Results of CBC and CMP faxed to [phone]. Rafael Meng RN Allergies As of Date: 10/16/2023 (No Known Allergies) Date Reviewed: 06/19/2023 Reviewed by: Lala Hooper MA - Fully Assessed Reason for Visit: Care Coordination [3491] Cmt: Results Prescriptions as of 10/16/2023 - latanoprost (XALATAN) 0.005 % ophthalmic solution instill 1 (ONE) DROP IN BOTH EYES AT BEDTIME - ergocalciferol 50,000 unit capsule (VITAMIN D2, DRISDOL) TAKE 1 CAPSULE BY MOUTH WEEKLY - metFORMIN (GLUCOPHAGE) 500 mg tablet Take 500 mg by mouth once daily. - metoprolol succinate ER (TOPROL XL) 25 mg 24 hr tablet Take 25 mg by mouth once daily. - fenofibrate (LOFIBRA) 134 mg capsule Take 134 mg by mouth once daily. - Aspirin 81 mg tab 81 mg every other day. 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 Cancer of the base of the tongue. Technique: Spiral CT acquisition of the chest from the thoracic inlet to the upper abdomen following IV contrast. MQ: CTCW_6 Contrast: 100 mL Omnipaque [address] Radiation dose: Integrated Dose-length product (DLP) for this visit = 975 mGy*cm CT Dose Reduction Employed: Automated exposure control (AEC) Comparison: CT chest performed 06/12/2023 RESULT: Limitations: None. Lines, tubes, and devices: None. Lung parenchyma and airways: There is mild dependent atelectasis. No lobar consolidation is visualized. Stable patchy groundglass opacity is noted in the left upper lobe (4:36). Previously described right upper lobe nodular opacity is less conspicuous when compared to prior exam. There is a stable 4 mm nodular opacity along the right major fissure (4:105). No new or enlarging nodules are seen. The central airways are widely patent. Pleural space: No pleural effusion. No pleural thickening. Lower neck, lymph nodes, and mediastinum: The thyroid gland is unremarkable. A subcarinal node is seen measuring up to 1.1 cm, similar to prior exam. No new bulky intrathoracic adenopathy is seen. Heart, pericardium, and thoracic vessels: The thoracic aorta and main pulmonary artery are normal in caliber. The cardiac chambers are normal in size. Coronary artery atherosclerotic calcification is noted. No pericardial effusion or thickening. Bones and soft tissues: Multilevel degenerative changes seen in the thoracic spine. Superficial soft tissues are unremarkable. Upper abdomen: No abnormality in the imaged upper abdomen. Localizer images: No additional findings. IMPRESSION: 1. Stable appearance of patchy groundglass opacities in the left upper lobe. Stable 4 mm nodular opacity along the right major fissure. No new or enlarging nodules are seen. 2. Stable mildly prominent subcarinal node. No new bulky intrathoracic adenopathy. Transcribe Date/Time: Oct 17 2023 8:33A Dictated by: CORINA PITTMAN MD This examination was interpreted and the report reviewed and electronically signed by: CORINA PITTMAN MD on Oct 17 2023 9:08AM EST Thank you for allowing us to participate in the care of your patient. Should there be any questions regarding this interpretation, please call [phone]. If you are unable to reach us at the number above, please feel free to contact [facility] at [phone]. 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 Dose-Length Product (DLP): 975 mGy*cm CT Dose Reduction Employed: Automated exposure control (AEC) COMPARISON: PET/CT 01/29/2023, outside hospital CT neck 07/27/2022 RESULT: Post-treatment changes: Asymmetric prominence of the LEFT vallecula and LEFT inferior glossotonsillar sulcus along LEFT base of tongue at site of previously noted enhancing lesion on prior CT neck 07/27/2022. No residual enhancing soft tissue in this region or elsewhere to suggest residual/recurrent disease. Extensive posttreatment/postrad iation changes including oropharyngeal/hypopha ryngeal mucosal edema, bilateral submandibular gland heterogeneity and atrophy, platysmal muscle thickening, and minimal parapharyngeal fat stranding. Lymph nodes: No cervical lymphadenopathy by size, number or morphologic criteria. Small nonspecific lymph nodes are scattered throughout the neck. Aerodigestive tract: The oral cavity is partially obscured by artifact from dental amalgam. The nasal cavities, naso-oropharynx, pharyngeal mucosal space, laryngeal structures and infraglottic trachea are otherwise within normal limits. Major salivary glands: Hyperattenuation of atrophy of the bilateral submandibular glands as detailed above. Bilateral parotid glands appear remarkable. Thyroid gland: Within normal limits. Carotid space: Atherosclerotic changes to the bilateral carotid bifurcations and proximal cervical ICAs resulting in mild short segment narrowing, although the study is not optimized for carotid artery assessment. Bilateral jugular veins appear patent. Intracranial contents: Mild generalized volume loss with commensurate ventriculomegaly. No visualized mass effect or abnormal enhancement. Paranasal sinuses, middle ears, mastoids: Clear. Orbits: Bilateral pseudophakia. Otherwise, within normal limits. Bones: No suspicious osseous lesions in the imaged calvarium, skull base and spine. Straightening of the normal cervical lordosis. Multilevel degenerative disc disease and ossification of the posterior longitudinal ligament resulting in moderate spinal canal narrowing at C4-C6. Multilevel uncovertebral hypertrophy and facet arthropathy resulting in up to moderate to severe neuroforaminal narrowing at C3-C7. Temporomandibular joints are maintained. Lungs: Imaged lungs are clear of consolidation or mass. Please see concurrent CT chest for complete evaluation of the intrathoracic contents. IMPRESSION: Primary: NI-RADS 1. Expected post-treatment changes in the neck without evidence of recurrent disease in the primary site. ? Neck: NI-RADS 1. No evidence of abnormal lymph nodes. Transcribe Date/Time: Oct 16 2023 1:19P Dictated by: SHIV MANZANO MD This examination was interpreted and the report reviewed and electronically signed by: SHIV MANZANO MD on Oct 16 2023 1:29PM EST Thank you for allowing us to participate in the care of your patient. Should there be any questions regarding this interpretation, please call [phone]. If you are unable to reach us at the number above, please feel free to contact [facility] at [phone]. [id number] N Normal [facility] Comprehensive metabolic 2000 panelon 10-16-2023 Albumin [Mass/Vol] 4.4 g/dL Normal 3.9-4.9 [facility] Comment on above: Order Comment: Speci men Type: BLOOD SPECIMENOrdering Facility: [facility] Address: [address] [place] [address] Performed By: #### 2 4323-8 ####[facility] [id number] [place] [address] ALP [Catalytic activity/Vol] 48 U/L Normal 38-113 [facility] Comment on above: Order Comment: Speci men Type: BLOOD SPECIMENOrdering Facility: [facility] Address: [address] [place] [address] Performed By: #### 2 4323-8 ####[facility] [id number] [place] [address] ALT [Catalytic activity/Vol] 13 U/L Normal 10-54 [facility] Comment on above: Order Comment: Speci men Type: BLOOD SPECIMENOrdering Facility: [facility] Address: [address] [place] [address] Performed By: #### 2 4323-8 ####[facility] [id number] [place] [address] Anion gap [Moles/Vol] 11 mmol/L Normal 9-18 [facility] Comment on above: Order Comment: Speci men Type: BLOOD SPECIMENOrdering Facility: [facility] Address: [address] [place], [place] [address] Performed By: #### 2 4323-8 ####[facility] [facility] [id number] [place] [address] AST [Catalytic activity/Vol] 15 U/L Normal 14-40 [facility] Comment on above: Order Comment: Speci men Type: BLOOD SPECIMENOrdering Facility: [facility] Address: [address] [place] [address] Performed By: #### 2 4323-8 ####[facility] LABCLIA [id number] [place] [address] Bilirubin [Mass/Vol] 0.5 mg/dL Normal 0.2-1.3 [facility] Comment on above: Order Comment: Speci men Type: BLOOD SPECIMENOrdering Facility: [facility] Address: [address] [place] [address] Performed By: #### 2 4323-8 ####[facility] LABCLIA [id number] [place] [address] Calcium [Mass/Vol] 9.7 mg/dL Normal 8.5-10.2 [facility] Comment on above: Order Comment: Speci men Type: BLOOD SPECIMENOrdering Facility: [facility] Address: [address] [place] [address] Performed By: #### 2 4323-8 ####[facility] LABCLIA [id number] [place] [address] Chloride [Moles/Vol] 105 mmol/L Normal 97-105 [facility] Comment on above: Order Comment: Speci men Type: BLOOD SPECIMENOrdering Facility: [facility] Address: [address] [place] [address] Performed By: #### 2 4323-8 ####[facility] LABCLIA [id number] [place] [address] CO2 [Moles/Vol] 26 mmol/L Normal 22-30 [facility] Comment on above: Order Comment: Speci men Type: BLOOD SPECIMENOrdering Facility: [facility] Address: [address] [place] [address] Performed By: #### 2 4323-8 ####[facility] LABCLIA [id number] [place] [address] Creatinine [Mass/Vol] 1.34 mg/dL High 0.73-1.22 [facility] Comment on above: Order Comment: Speci men Type: BLOOD SPECIMENOrdering Facility: [facility] Address: [address] [place] [address] Performed By: #### 2 4323-8 ####[facility] LABCLIA [id number] [place] [address] Creatinine and Glomerular filtration rate.predicted panel (S/P/Bld) 54 mL/min/1.73m??? Low >=60 [facility] Comment on above: Order Comment: Speci men Type: BLOOD SPECIMENOrdering Facility: [facility] Address: [address] [place] [address] Result Comment: Felicity mated Glomerular Filtration Rate (eGFR) is calculated using the 2020 CKD-EPI creatinine equation. This equation utilizes serum creatinine, sex, and age as parameters. The creatinine assay has traceable calibration to isotope dilution-mass spectrometry. Refer to KDIGO guidelines for clinical interpretation. In patients with unstable renal function, e.g. those with acute kidney injury, the eGFR may not accurately reflect actual GFR. Performed By: #### 2 4323-8 ####[facility] LABCLIA [id number] [place] [address] Glucose [Mass/Vol] 135 mg/dL High 74-99 [facility] Comment on above: Order Comment: Speci men Type: BLOOD SPECIMENOrdering Facility: [facility] Address: [address] [place] [address] Result Comment: The [place] [employer] (ADA) provides guidance for cutoff values for fasting glucose and random glucose. The ADA defines fasting as no caloric intake for at least 8 hours. Fasting plasma glucose results between 100 to 125 mg/dL indicate increased risk for diabetes (prediabetes). Fasting plasma glucose results greater than or equal to 126 mg/dL meet the criteria for diagnosis of diabetes. In the absence of unequivocal hyperglycemia, results should be confirmed by repeat testing. In a patient with classic symptoms of hyperglycemia or hyperglycemic crisis, random plasma glucose results greater than or equal to 200 mg/dL meet the criteria for diagnosis of diabetes. Reference: Standards of Medical Care in Diabetes 2016, [place] [employer]. Diabetes Care. 2016.39(Suppl 1). Performed By: #### 2 4323-8 ####[facility]CLIA [id number] [place] [address] Potassium [Moles/Vol] 4.5 mmol/L Normal 3.7-5.1 [facility] Comment on above: Order Comment: Speci men Type: BLOOD SPECIMENOrdering Facility: [facility] Address: [address] [place] [address] Performed By: #### 2 4323-8 ####[facility] LABCLIA [id number] [place] [address] Protein [Mass/Vol] 6.7 g/dL Normal 6.3-8.0 [facility] Comment on above: Order Comment: Speci men Type: BLOOD SPECIMENOrdering Facility: [facility] Address: [address] [place] [address] Performed By: #### 2 4323-8 ####[facility]CLIA [id number] [place] [address] Sodium [Moles/Vol] 142 mmol/L Normal 136-144 [facility] Comment on above: Order Comment: Speci men Type: BLOOD SPECIMENOrdering Facility: [facility] Address: [address] [id number] Performed By: #### 2 4323-8 ####[facility]CLIA [id number] [place] [address] Urea nitrogen [Mass/Vol] 22 mg/dL Normal 9-24 [facility] Comment on above: Order Comment: Speci men Type: BLOOD SPECIMENOrdering Facility: [facility] Address: [facility] [place] [address] Performed By: #### 2 4323-8 ####[facility] [id number] [place] [address] CNOVSPon 06-19-2023 CNOVSP Visit (SP) Office (HEMASA) MANISH ROOT ([id number]) 1945 M Date Time Provider Department 06/19/23 9:45 AM JOHN ENGLAND During your visit today, we recorded the following information about you: Temperature Pulse Respiration Blood pressure 97.2 degrees 54/minute 16/minute 140/69 Weight 82.9 kg John England MD 06/20/2023 8:01 AM Signed NAME: Manish Root NO.: [id number] DATE OF SERVICE: June 19, 2023 (Jacquelyn) Some elements in this clinic note that are critical to medical decision making have been carefully reviewed and included from a prior clinic note dated: March 20, 2023 (Jacquelyn) Referring Provider: Dr. Татьяна Feliz Additional Clinicians involved in Manish Root's care: Serene Morales DIAGNOSIS: Base of Tongue squamous cell ca. 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 He has a prior history of colon cancer in 1999. July 31, 2022 - Stage : T3 N1a M0 Completed treatment and is eating better. Neutropenia resolved. January 2023 PET with right lung lesion - repeat imaging with CT chest @ 6 weeks March 2023 showed involution of the lesion and now only ground glass opacity. PLAN: CT Neck and Chest in 4 months Labs same day RTC 1 week after to review. - HPI: CASE HISTORY: Reverse Chronological Order 06/12/2023 - CT Chest - Since 03/14/2023, near complete resolution of right upper lobe mass/groundglass opacification New patchy regions of groundglass opacification within the anterior left upper lobe, compatible with new sites of infection/inflammatio n. 03/14/2023 - CT Chest - 1. On patient's prior PET/CT from 01/29/2023, there was a 2.3 x 2.2 cm solid hypermetabolic nodule in the anterior right upper lobe. On today's exam, this is moderately to markedly decreased in density and now represents an area of groundglass opacity measuring over an area of approximately 2.3 x 2.2 cm in size. If this has not undergone interval treatment, then this may represent an infectious/inflammato ry focus which is improving. There is an adjacent subcentimeter nodule which is also decreased in density. Finally, there is a 3 mm solid nodule in the anterior right lower lobe which was not clearly seen on the prior PET/CT. 01/29/2023 - PET/CT Chest: New hypermetabolic right upper lobe lung nodule. Differential includes inflammatory /neoplastic process 09/03/2022 - 10/08/2022 - Cisplatin total dose 240 mg/m2 with RT 07/31/2022 examination under anesthesia/panendosco py. Findings included a friable exophytic mass left base of tongue extending into the vallecula. No other significant findings on laryngoscopy. 07/27/2022 CT neck: with contrast which demonstrated a 5 x 4.5 x 2.5 cm mass arising from the left base of tongue injecting into the hypopharynx and displacing the epiglottis posterior and inferior with narrowing of the hypopharynx. In addition a level 2 left-sided lymph node measuring 1.7 x 1.0 x 1.0 cm suspicious for metastatic disease. June 2022 - voice changed and trouble swallowing. February 2022 - started losing weight 1999 - Colon Ca Stage 3 - 2/5 LN + [place] regimen on protocol Updated Visit, June 19, 2023: Manish presents with his Jahaira. He is doing well. Reviewed his scans with him and not new changes with prior resolution of abnormalities. Kidney function remains decreased but he doesn't drink much water ever. Updated Visit, March 20, 2023: Feels great and has recovered from upper respiratory infection. Reviewed CT and showed improvement. Updated Visit, February 06, 2023: Doing ok but has productive cough and vocal changes Reviewed PET showing a new consolidation in right lung that could be infectious / malignant. Will repeat CT Chest. He is anxious. Updated Visit, November 07, 2022: Manish returns with Jahaira. Eating is much better but taste is not back. Neutropenia resolved. Updated Visit, October 31, 2022: Manish Root returns for follow-up. He still altered taste. He has no sense for sweet foods. He continues to have intermittent mouth dryness. He denies mouth sores. His weight is over all stable. He denies fevers, chills, night sweats and signs/symptoms of infection. He complains of increase in phlegm production Updated Visit, October 25, 2022: Manish Root returns for follow-up. He received Neupogen 400 mcg on 10/19/2022. He remains on Cipro prophylaxis. He denies fevers, chills, night sweats and signs/symptoms of infection. No bleeding. He has some bruising. He states that everything tastes terrible. He complains of dry mouth. He denies any difficulty swallowing. Updated Visit, October 19, 2022: Manish re (more content not included)... Normal [facility] CT CHEST W IVCONon 3 CT CHEST W IVCON * * *Final Report* * * DATE OF EXAM: Jun 12 2023 8:15AM [facility] 0539 - CT CHEST W IVCON / PROCEDURE REASON: multiple diagnoses * * * * Physician Interpretation * * * * RESULT: EXAMINATION: CHEST CT WITH CONTRAST CLINICAL HISTORY: Base of tongue cancer, status post chemotherapy and radiation. Right lung mass. Lung mass identified on PET/CT 01/29/2023 with decrease in size/density on 03/14/2023. This was clinically managed conservatively and viewed as resolving infection/benign process. Examination for ongoing surveillance. Technique: Spiral CT acquisition of the chest from the thoracic inlet to the upper abdomen following IV contrast. MQ: [id number]_6 Contrast: 50 mL Omnipaque [address] Radiation dose: Integrated Dose-length product (DLP) for this visit = 247 mGy*cm CT Dose Reduction Employed: Automated exposure control (AEC) Comparison: CT chest 03/14/2023; PET/CT 01/29/2023 RESULT: Limitations: None. Lines, tubes, and devices: None. Lung parenchyma and airways: The central tracheobronchial tree is patent. The previously seen right upper lobe mass/groundglass consolidation has nearly completely resolved, with only mild regional increased density (series 4, image 87). There are new patchy groundglass opacities within the anterior left upper lobe (series 4, image 38), likely new sites of infection/inflammatio n. Again noted are nonspecific noncalcified pulmonary nodules, with insurance claim representative larger examples detailed as follows on series 4: - Image 38, right lung apex, 0.3 cm (unchanged) - Image 112, right lower lobe along the major fissure, 0.4 cm (unchanged) Pleural space: No pleural effusion. No pleural thickening. Lower neck, lymph nodes, and mediastinum: The imaged thyroid is unremarkable. No supraclavicular, axillary, or hilar lymphadenopathy. A mildly enlarged subcarinal lymph node measuring 1.2 cm in short axis (series 3, image 92) is unchanged. Heart, pericardium, and thoracic vessels: The thoracic aorta and main pulmonary artery are normal in caliber. The cardiac chambers are normal in size. Coronary artery atherosclerotic calcifications are noted, although the study is not optimized for coronary assessment. No pericardial effusion or thickening. Bones and soft tissues: Degenerative change involves the thoracic spine. No destructive lytic or blastic osseous abnormality. Upper abdomen: No abnormality in the imaged upper abdomen. Project Landscape Architect (topogram) images: No additional findings. IMPRESSION: 1. Since 03/14/2023, near complete resolution of right upper lobe mass/groundglass opacification, compatible with nearly resolved infection/inflammatio n. 2. New patchy regions of groundglass opacification within the anterior left upper lobe, compatible with new sites of infection/inflammatio n. Follow-up to resolution is suggested. 3. Small nonspecific noncalcified right lung nodules measuring up to 0.4 cm are unchanged. 4. Unchanged mildly enlarged subcarinal lymph node. Transcribe Date/Time: Jun 12 2023 10:31A Dictated by: ELLIE ANDRES MD This examination was interpreted and the report reviewed and electronically signed by: ELLIE ANDRES MD on Jun 12 2023 10:55AM EST Thank you for allowing us to participate in the care of your patient. Should there be any questions regarding this interpretation, please call [phone]. If you are unable to reach us at the number above, please feel free to contact [facility]iology at [phone]. [id number] Normal [facility] CBC W Auto Differential pane l (Bld)on 06-11-2023 Basophils (Bld) [#/Vol] 0.03 10*3/uL Normal <0.11 [facility] Comment on above: Order Comment: Speci men Type: BLOOD SPECIMEN [facility]: [facility] Address: [address] [address] Performed By: #### 2 4323-8 #### [facility] CLIA [id number] [address] [place] [address] Basophils/100 WBC (Bld) 0.9 % Normal [facility] Comment on above: Order Comment: Speci men Type: BLOOD SPECIMEN [facility]ing Facility: [facility] Address: [address] [address] Performed By: #### 2 4323-8 #### [facility] CLIA [id number] [address] [place] [address] Differential cell count method Nom (Bld) Auto Normal [facility] Comment on above: Order Comment: Speci men Type: BLOOD SPECIMEN [facility] Facility: [facility] Address: [address] [address] Performed By: #### 2 4323-8 #### [facility] CLIA [id number] [address] [place] [address] Eosinophils (Bld) [#/Vol] 0.05 10*3/uL Normal <0.46 [facility] Comment on above: Order Comment: Speci men Type: BLOOD SPECIMEN [facility] Facility: [facility] Address: [address] [address] Performed By: #### 2 432-8 #### [facility] CLIA [id number] [address] [place] [address] Eosinophils/100 WBC (Bld) 1.4 % Normal [facility] Comment on above: Order Comment: Speci men Type: BLOOD SPECIMEN [facility]ing Facility: [facility] Address: [address] [address] Performed By: #### 2 432-8 #### [facility] CLIA [id number] [address] [place] [address] Erythrocyte distribution width (RBC) [Ratio] 13.5 % Normal 11.5-15.0 [facility] Comment on above: Order Comment: Speci men Type: BLOOD SPECIMEN [facility]ing Facility: [facility] Address: [address] [address] Performed By: #### 2 432-8 #### [facility] CLIA [id number] [address] [place] [address] Hematocrit (Bld) [Volume fraction] 39.8 % Normal 39.0-51.0 [facility] Comment on above: Order Comment: Speci men Type: BLOOD SPECIMEN [facility]ing Facility: [facility] Address: [address] [place] [address] Performed By: #### 2 4323-8 #### [facility] CLIA [id number] [address] [place] [address] Hemoglobin (Bld) [Mass/Vol] 13.3 g/dL Normal 13.0-17.0 [facility] Comment on above: Order Comment: Speci men Type: BLOOD SPECIMEN [facility]ing [facility]: [facility] Address: [address] [address] Performed By: #### 2 4323-8 #### [facility] CLIA [id number] [address] [place] [address] Immature granulocytes (Bld) [#/Vol] 0.03 10*3/uL Normal <0.10 [facility] Comment on above: Order Comment: Speci men Type: BLOOD SPECIMEN [facility]ing Facility: [facility] Address: [address] [address] Performed By: #### 2 432-8 #### [facility] CLIA [id number] [address] [place] [address] Immature granulocytes/100 WBC (Bld) 0.9 % Normal [facility] Comment on above: Order Comment: Speci men Type: BLOOD SPECIMEN [facility]ing Facility: [facility] Address: [address] [address] Performed By: #### 2 4323-8 #### [facility] CLIA [id number] [address] [place] [address] Lymphocytes (Bld) [#/Vol] 0.53 10*3/uL Low 1.00-4.00 [facility] Comment on above: Order Comment: Speci men Type: BLOOD SPECIMEN [facility]ing Facility: [facility] Address: [address] [address] Performed By: #### 2 4323-8 #### [facility] CLIA [id number] [address] [place] [address] Lymphocytes/100 WBC (Bld) 15.2 % Normal [facility] Comment on above: Order Comment: Speci men Type: BLOOD SPECIMEN [facility] Address: [address] [address] Performed By: #### 2 3-8 #### [facility] CLIA [id number] [address] [place] [address] MCH (RBC) [Entitic mass] 30.5 pg Normal 26.0-34.0 [facility] Comment on above: Order Comment: Speci men Type: BLOOD SPECIMEN [facility]ing Facility: [facility] Address: [address] [place] [address] Performed By: #### 2 4323-8 #### [facility] CLIA [id number] [address] [place] [address] MCHC (RBC) [Mass/Vol] 33.4 g/dL Normal 30.5-36.0 [facility] Comment on above: Order Comment: Speci men Type: BLOOD SPECIMEN [facility]ing Facility: [facility] Address: [address] [place] [address] Performed By: #### 2 4323-8 #### [facility] CLIA [id number] [address] [place] [address] MCV (RBC) [Entitic vol] 91.3 fL Normal 80.0-100.0 [facility] Comment on above: Order Comment: Speci men Type: BLOOD SPECIMEN [facility]ing Facility: [facility] Address: [address] [place] [address] Performed By: #### 2 4323-8 #### [facility] CLIA [id number] [address] [place] [address] Monocytes (Bld) [#/Vol] 0.42 10*3/uL Normal <0.87 [facility] Comment on above: Order Comment: Speci men Type: BLOOD SPECIMEN [facility]ing Facility: [facility] Address: [address] [place] [address] Performed By: #### 2 4323-8 #### [facility] CLIA [id number] [address] [place] [address] Monocytes/100 WBC (Bld) 12.0 % Normal [facility] Comment on above: Order Comment: Speci men Type: BLOOD SPECIMEN [facility]ing Facility: [facility] Address: [address] [address] Performed By: #### 2 4323-8 #### [facility] CLIA [id number] [address] [place] [address] Neutrophils (Bld) [#/Vol] 2.43 10*3/uL Normal 1.45-7.50 [facility] Comment on above: Order Comment: Speci men Type: BLOOD SPECIMEN [facility]ing Facility: [facility] Address: [address] [address] Performed By: #### 2 4323-8 #### [facility] CLIA [id number] [address] [place] [address] 18129 Neutrophils/100 WBC (Bld) 69.6 % Normal [facility] Comment on above: Order Comment: Speci men Type: BLOOD SPECIMEN Ordering Facility: [facility] Address: [address] [address] Performed By: #### 2 432-8 #### [facility] CLIA [id number] [address] [place] [address] Nucleated RBC (Bld) [#/Vol] 10*3/uL Normal <0.01 [facility] Comment on above: Order Comment: Speci men Type: BLOOD SPECIMEN Ordering Facility: [facility] Address: [address] [address] Performed By: #### 2 4323-8 #### [facility] CLIA [id number] [address] [place] [address] 22893 Nucleated RBC/100 WBC (Bld) [Ratio] 0.0 /100 WBC Normal [facility] Comment on above: Order Comment: Speci men Type: BLOOD SPECIMEN Ordering Facility: [facility] Address: [address] [place] [address] Performed By: #### 2 4323-8 #### [facility] CLIA [id number] [address] [place] [address] 60866 Platelet mean volume (Bld) [Entitic vol] 9.0 fL Normal 9.0-12.7 [facility] Comment on above: Order Comment: Speci men Type: BLOOD SPECIMEN Ordering Facility: [facility] Address: [address] [place] [address] Performed By: #### 2 4323-8 #### [facility] CLIA [id number] [address] [place] [address] 20074 Platelets (Bld) [#/Vol] 180 10*3/uL Normal 150-400 [facility] Comment on above: Order Comment: Speci men Type: BLOOD SPECIMEN Ordering Facility: [facility] Address: [address] [place] [address] Performed By: #### 2 4323-8 #### [facility] CLIA [id number] [address] [place] [address] 92272 RBC (Bld) [#/Vol] 4.36 10*6/uL Normal 4.20-6.00 [facility] Comment on above: Order Comment: Speci men Type: BLOOD SPECIMEN [facility]ing Facility: [facility] Address: [address] [place] [address] Performed By: #### 2 4323-8 #### [facility] CLIA [id number] [address] [place] [address] 12063 WBC (Bld) [#/Vol] 3.49 10*3/uL Low 3.70-11.00 [facility] Comment on above: Order Comment: Speci men Type: BLOOD SPECIMEN [facility]ing Facility: [facility] Address: [address] [place] [address] Performed By: #### 2 4323-8 #### [facility] CLIA [id number] [address] [place] [address] 18646 Comprehensive metabolic 2000 panelon 06-11-2023 Albumin [Mass/Vol] 4.8 g/dL Normal 3.9-4.9 [facility] Comment on above: Order Comment: Speci men Type: BLOOD SPECIMENOrdering Facility: [facility] Address: [address] [place] [address] Performed By: #### 2 4323-8 ####[facility] LABCLIA [id number] [place] [address] ALP [Catalytic activity/Vol] 47 U/L Normal 38-113 [facility] Comment on above: Order Comment: Speci men Type: BLOOD SPECIMENOrdering Facility: [facility] Address: [address] [place] [address] Performed By: #### 2 4323-8 ####[facility]CLIA [id number] [place] [address] ALT [Catalytic activity/Vol] 11 U/L Normal 10-54 [facility] Comment on above: Order Comment: Speci men Type: BLOOD SPECIMENOrdering Facility: [facility] Address: [address] [place] [address] Performed By: #### 2 4323-8 ####[facility] LABCLIA [id number] [place] [address] Anion gap [Moles/Vol] 10 mmol/L Normal 9-18 [facility] Comment on above: Order Comment: Speci men Type: BLOOD SPECIMENOrdering Facility: [facility] Address: [address] [place] [address] Performed By: #### 2 4323-8 ####[facility] LABCLIA [id number] [place] [address] AST [Catalytic activity/Vol] 15 U/L Normal 14-40 [facility] Comment on above: Order Comment: Speci men Type: BLOOD SPECIMENOrdering Facility: [facility] Address: [address] [place] [address] Performed By: #### 2 4323-8 ####[facility] LABCLIA [id number] [place] [address] Bilirubin [Mass/Vol] 0.6 mg/dL Normal 0.2-1.3 [facility] Comment on above: Order Comment: Speci men Type: BLOOD SPECIMENOrdering Facility: [facility] Address: [address] [place] [address] Performed By: #### 2 4323-8 ####[facility] LABCLIA [id number] [place] [address] Calcium [Mass/Vol] 10.1 mg/dL Normal 8.5-10.2 [facility] Comment on above: Order Comment: Speci men Type: BLOOD SPECIMENOrdering Facility: [facility] Address: [address] [place] [address] Performed By: #### 2 4323-8 ####[facility] LABCLIA [id number] [place] [address] Chloride [Moles/Vol] 102 mmol/L Normal 97-105 [facility] Comment on above: Order Comment: Speci men Type: BLOOD SPECIMENOrdering Facility: [facility] Address: [address] [place] [address] Performed By: #### 2 4323-8 ####[facility] LABCLIA [id number] [place] [address] CO2 [Moles/Vol] 30 mmol/L Normal 22-30 [facility] Comment on above: Order Comment: Speci men Type: BLOOD SPECIMENOrdering Facility: [facility] Address: [address] [place] [address] Performed By: #### 2 4323-8 ####[facility] LABCLIA [id number] [place] [address] Creatinine [Mass/Vol] 1.30 mg/dL High 0.73-1.22 [facility] Comment on above: Order Comment: Speci men Type: BLOOD SPECIMENOrdering Facility: [facility] Address: [address] [place] [address] Performed By: #### 2 4323-8 ####[facility] LABCLIA [id number] [place] [address] Creatinine and Glomerular filtration rate.predicted panel (S/P/Bld) 56 mL/min/1.73m??? Low >=60 [facility] Comment on above: Order Comment: Marleen beauchamp Type: BLOOD SPECIMENOrdering Facility: [facility] Address: [address] [place] [address] Result Comment: Felicity mated Glomerular Filtration Rate (eGFR) is calculated using the 2020 CKD-EPI creatinine equation. This equation utilizes serum creatinine, sex, and age as parameters. The creatinine assay has traceable calibration to isotope dilution-mass spectrometry. Refer to KDIGO guidelines for clinical interpretation. In patients with unstable renal function, e.g. those with acute kidney injury, the eGFR may not accurately reflect actual GFR. Performed By: #### 2 4323-8 ####[facility] LABCLIA [id number] [place] [address] Glucose [Mass/Vol] 112 mg/dL High 74-99 [facility] Comment on above: Order Comment: Marleen beauchamp Type: BLOOD SPECIMENOrdering Facility: [facility] Address: [address] [place] [address] Result Comment: The [place] [employer] (ADA) provides guidance for cutoff values for fasting glucose and random glucose. The ADA defines fasting as no caloric intake for at least 8 hours. Fasting plasma glucose results between 100 to 125 mg/dL indicate increased risk for diabetes (prediabetes). Fasting plasma glucose results greater than or equal to 126 mg/dL meet the criteria for diagnosis of diabetes. In the absence of unequivocal hyperglycemia, results should be confirmed by repeat testing. In a patient with classic symptoms of hyperglycemia or hyperglycemic crisis, random plasma glucose results greater than or equal to 200 mg/dL meet the criteria for diagnosis of diabetes. Reference: Standards of Medical Care in Diabetes 2016, [place] [employer]. Diabetes Care. 2016.39(Suppl 1). Performed By: #### 2 4323-8 ####[facility] LABCLIA [id number] [place] [address] Potassium [Moles/Vol] 4.4 mmol/L Normal 3.7-5.1 [facility] Comment on above: Order Comment: Marleen beauchamp Type: BLOOD SPECIMENOrdering Facility: [facility] Address: [address] [place] [address] Performed By: #### 2 4323-8 ####[facility] LABCLIA [id number] [place] [address] Protein [Mass/Vol] 7.4 g/dL Normal 6.3-8.0 [facility] Comment on above: Order Comment: Speci men Type: BLOOD SPECIMENOrdering Facility: [facility] Address: [address] [place] [address] Performed By: #### 2 4323-8 ####[facility] LABCLIA [id number] [place] [address] Sodium [Moles/Vol] 142 mmol/L Normal 136-144 [facility] Comment on above: Order Comment: Speci men Type: BLOOD SPECIMENOrdering Facility: [facility] Address: [address] [place] [address] Performed By: #### 2 4323-8 ####[facility] LABCLIA [id number] [place] [address] Urea nitrogen [Mass/Vol] 29 mg/dL High 9-24 [facility] Comment on above: Order Comment: Speci men Type: BLOOD SPECIMENOrdering Facility: [facility] Address: [address] [place] [address] Performed By: #### 2 4323-8 ####[facility] LABCLIA [id number] [place] [address] CNOVon 05-08-2023 CNOV Office Visit (RADTSA ) MANISH ROOT ([id number]) 1945 M Date Time Provider Department 05/08/23 11:15 AM Yordan FELIZ During your visit today, we recorded the following information about you: Temperature Pulse Respiration Blood pressure 97.1 degrees 58/minute 16/minute 168/104 Weight 80.2 kg Yordan Feliz MD 05/14/2023 8:14 AM Signed Radiation Oncology - Follow Up Note PATIENT NAME: Manish Root PATIENT DIAGNOSIS: Oropharyngeal cancer, 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 INTERVAL HISTORY: Doing well. Eating fairly well. Some mild taste issues. Mild dry mouth. No other new problems or concerns. RADIOLOGY: CT Chest 03/14/23: 1. On patient's prior PET/CT from 01/29/2023, there was a 2.3 x 2.2 cm solid hypermetabolic nodule in the anterior right upper lobe. On today's exam, this is moderately to markedly decreased in density and now represents an area of groundglass opacity measuring over an area of approximately 2.3 x 2.2 cm in size. If this has not undergone interval treatment, then this may represent an infectious/inflammato ry focus which is improving. There is an adjacent subcentimeter nodule which is also decreased in density. Finally, there is a 3 mm solid nodule in the anterior right lower lobe which was not clearly seen on the prior PET/CT. However, differences in technique limit the comparison. Would advise continued imaging follow-up with the next chest CT in 3 months. PET/CT 01/29/2023:1. Neck: No suspicious hypermetabolic foci. Posttreatment change. 2. Chest: New hypermetabolic right upper lobe lung nodule. Differential includes inflammatory/neoplast ic process. 3. Abdomen and pelvis: No evidence of FDG avid neoplastic process 4. Skeleton: No hypermetabolic osseous lesions ALLERGIES No Known Allergies MEDICATIONS: latanoprost (XALATAN) 0.005 % ophthalmic solution instill 1 (ONE) DROP IN BOTH EYES AT BEDTIME ergocalciferol 50,000 unit capsule (VITAMIN D2, DRISDOL) TAKE 1 CAPSULE BY MOUTH WEEKLY metFORMIN (GLUCOPHAGE) 500 mg tablet Take 500 mg by mouth as directed. 1 AM/1 PM metoprolol succinate ER (TOPROL XL) 25 mg 24 hr tablet Take 25 mg by mouth once daily. fenofibrate (LOFIBRA) 134 mg capsule Take 134 mg by mouth once daily. Aspirin 81 mg tab 81 mg every other day. REVIEW OF SYSTEMS: PAIN ASSESSMENT: Negative for pain, history of chronic pain, or current treatment for a chronic pain condition. NECK: Negative for goiter, pain or significant neck swelling RESPIRATORY: Negative for cough, hemoptysis, wheezing, COPD, dyspnea or shortness of breath CARDIOVASCULAR: Negative for chest pain, leg swelling, hypertension, CHF or palpitations GI: No nausea, vomiting, or diarrhea : No history of dysuria, frequency or incontinence MUSCULOSKELETAL: Negative for joint pain or swelling, back pain or muscle pain NEURO: No history of headaches, syncope, paralysis, seizures or tremors The remainder of the review of systems is negative. PHYSICAL EXAM: 05/08/23 1114 BP: 168/104 Pulse: (!) 58 Resp: 16 Temp: 36.2 ?C (97.1 ?F) SpO2: 98% Weight: 80.2 kg (176 lb 12.8 oz) KPS: 100 General Appearance: Well appearing, alert, in no acute distress, well-hydrated, well nourished.. Skin: Skin color, texture, turgor normal, no suspicious rashes or lesions. Oropharynx: Lips, mucosa, and tongue normal, teeth and gums normal, oropharynx normal. Neck: Supple, no adenopathy or masses Lungs: Lungs clear to auscultation. No wheezing, rhonchi, rales.. Neurologic: Gait normal. Reflexes normal and symmetric. Sensation grossly intact.. Lymph Nodes: No cervical lymphadenopathy, No supraclavicular lymphadenopathy, No axillary lymphadenopathy. 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 1. Oropharyngeal cancer. Doing well. No evidence of recurrence clinically or radiographically. He continues close follow-up with Dr. Timmis. 2. Lung nodule most recent CT with decreased size indicating likely benign or infectious cause. He has at least 1 other small nodule that was stable, and has continued imaging scheduled. Signed by: Yordan Feliz MD cc: Dr. Shaikh Vidal Estrada [address] [place] [address] Allergies As of Date: 05/08/2023 (No Known Allergies) Date Reviewed: 05/08/2023 Reviewed by: Diana García LPN - Fully Assessed Reason for Visit: (more content not included)... Normal [facility] CNOVSPon 03-20-2023 CNOVSP Visit (SP) Office (HEMASA) MANISH ROOT ([id number]) 1945 M Date Time Provider Department 03/20/23 1:15 PM JOHN ENGLAND During your visit today, we recorded the following information about you: Temperature Pulse Respiration Blood pressure 97.9 degrees 59/minute 16/minute 139/65 Weight Height 79.9 kg 1.669 m John England MD 03/20/2023 1:24 PM Signed NAME: Manish Root [facility] NO.: [id number] DATE OF SERVICE: March 20, 2023 (Jacquelyn) Some elements in this clinic note that are critical to medical decision making have been carefully reviewed and included from a prior clinic note dated:February 06, 2023 (Jacquelyn) Referring Provider: Dr. Татьяна Feliz Additional Clinicians involved in Manish Root's care: Serene Morales DIAGNOSIS: Base of Tongue squamous cell ca. 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 He has a prior history of colon cancer in 1999. July 31, 2022 - Stage : T3 N1a M0 Completed treatment and is eating better. Neutropenia resolved. January 2023 PET with right lung lesion - repeat imaging with CT chest @ 6 weeks March 2023 showed involution of the lesion and now only ground glass opacity. PLAN: CT Chest in 3 months Labs same day RTC 1 week after to review. - HPI: CASE HISTORY: Reverse Chronological Order 03/14/2023 - CT Chest - 1. On patient's prior PET/CT from 01/29/2023, there was a 2.3 x 2.2 cm solid hypermetabolic nodule in the anterior right upper lobe. On today's exam, this is moderately to markedly decreased in density and now represents an area of groundglass opacity measuring over an area of approximately 2.3 x 2.2 cm in size. If this has not undergone interval treatment, then this may represent an infectious/inflammato ry focus which is improving. There is an adjacent subcentimeter nodule which is also decreased in density. Finally, there is a 3 mm solid nodule in the anterior right lower lobe which was not clearly seen on the prior PET/CT. 01/29/2023 - PET/CT Chest: New hypermetabolic right upper lobe lung nodule. Differential includes inflammatory /neoplastic process 09/03/2022 - 10/08/2022 - Cisplatin total dose 240 mg/m2 with RT 07/31/2022 examination under anesthesia/panendosco py. Findings included a friable exophytic mass left base of tongue extending into the vallecula. No other significant findings on laryngoscopy. 07/27/2022 CT neck: with contrast which demonstrated a 5 x 4.5 x 2.5 cm mass arising from the left base of tongue injecting into the hypopharynx and displacing the epiglottis posterior and inferior with narrowing of the hypopharynx. In addition a level 2 left-sided lymph node measuring 1.7 x 1.0 x 1.0 cm suspicious for metastatic disease. June 2022 - voice changed and trouble swallowing. February 2022 - started losing weight 2000 - Colon Ca Stage 3 - 2/5 LN + [place] regimen on protocol Updated Visit, March 20, 2023: Feels great and has recovered from upper respiratory infection. Reviewed CT and showed improvement. Updated Visit, February 06, 2023: Doing ok but has productive cough and vocal changes Reviewed PET showing a new consolidation in right lung that could be infectious / malignant. Will repeat CT Chest. He is anxious. Updated Visit, November 07, 2022: Manish returns with Jahaira. Eating is much better but taste is not back. Neutropenia resolved. Updated Visit, October 31, 2022: Manish Root returns for follow-up. He still altered taste. He has no sense for sweet foods. He continues to have intermittent mouth dryness. He denies mouth sores. His weight is over all stable. He denies fevers, chills, night sweats and signs/symptoms of infection. He complains of increase in phlegm production Updated Visit, October 25, 2022: Manish Root returns for follow-up. He received Neupogen 400 mcg on 10/19/2022. He remains on Cipro prophylaxis. He denies fevers, chills, night sweats and signs/symptoms of infection. No bleeding. He has some bruising. He states that everything tastes terrible. He complains of dry mouth. He denies any difficulty swallowing. Updated Visit, October 19, 2022: Manish returns with Jahaira and is doing well. Feeling better but is neutropenic from chemotherapy. Really re-inforced education regarding neutropenia and fevers. Updated Visit, October 01, 2022: Manish Root returns for follow-up and treatment. He remains on weekly cisplatin concurrent with radiation and overall is tolerating fairly well. He has 14 radiation treatments remaining. He states that he has no taste. He does not eat and drink enough. He denies difficulty swallowing. He denies any unusual pain. He has (more content not included)... Normal [facility] CT CHEST W IVCONon 3 CT CHEST W IVCON * * *Final Report* * * DATE OF EXAM: Mar 14 2023 2:26PM [facility] 0539 - CT CHEST W IVCON / PROCEDURE REASON: Lung nodules * * * * Physician Interpretation * * * * RESULT: EXAMINATION: CHEST CT WITH CONTRAST CLINICAL HISTORY: Lung nodule follow-up. History of tongue base cancer. Technique: Spiral CT acquisition of the chest from the thoracic inlet to the upper abdomen following IV contrast. MQ: [id number]_6 Contrast: 50 mL Omnipaque [address] Radiation dose: Integrated Dose-length product (DLP) for this visit = 234 mGy*cm CT Dose Reduction Employed: Automated exposure control (AEC) Comparison: PET CT from 01/29/2023 RESULT: Limitations: None. Lines, tubes, and devices: None. Lung parenchyma and airways: On patient's prior PET/CT from 01/29/2023, there was a 2.3 x 2.2 cm solid hypermetabolic nodule in the anterior right upper lobe. On today's exam, this is moderately to markedly decreased in density and now represents an area of groundglass opacity measuring over an area of approximately 2.3 x 2.2 cm in size. If this has not undergone interval treatment, then this may represent an infectious/inflammato ry focus which is improving. Additionally, there is a 6 mm groundglass nodule in the anterior right upper lobe on slice 56 of series 4. This is also decreased in density when compared to the prior exam, when it represented a solid nodule. 3 mm solid nodule in the anterior right lower lobe on slice 160 of series 4. This was not clearly seen on patient's prior PET/CT. However, differences in technique limit the comparison. Pleural space: No pleural effusion. No pleural thickening. Lower neck, lymph nodes, and mediastinum: No suspicious axillary, mediastinal, or hilar lymphadenopathy. Heart, pericardium, and thoracic vessels: Moderate to marked coronary artery calcification. Bones and soft tissues: No destructive bone lesion. Chest wall is unremarkable. Upper abdomen: No abnormality in the imaged upper abdomen. Project Landscape Architect (topogram) images: No additional findings. IMPRESSION: 1. On patient's prior PET/CT from 01/29/2023, there was a 2.3 x 2.2 cm solid hypermetabolic nodule in the anterior right upper lobe. On today's exam, this is moderately to markedly decreased in density and now represents an area of groundglass opacity measuring over an area of approximately 2.3 x 2.2 cm in size. If this has not undergone interval treatment, then this may represent an infectious/inflammato ry focus which is improving. There is an adjacent subcentimeter nodule which is also decreased in density. Finally, there is a 3 mm solid nodule in the anterior right lower lobe which was not clearly seen on the prior PET/CT. However, differences in technique limit the comparison. Would advise continued imaging follow-up with the next chest CT in 3 months. Transcribe Date/Time: Mar 15 2023 3:56P Dictated by: RENEA SCHULZ MD This examination was interpreted and the report reviewed and electronically signed by: RENEA SCHULZ MD on Mar 15 2023 4:09PM EST Thank you for allowing us to participate in the care of your patient. Should there be any questions regarding this interpretation, please call [phone]. If you are unable to reach us at the number above, please feel free to contact [facility] at [phone]. [id number] Normal [facility] ALBUMIN/CREAT RATIO RND URon 02-06-2023 Albumin DL <= 20 mg/L (U) [Mass/Vol] mg/dL Normal [facility] Comment on above: Order Comment: Speci men Type: URINE SPECIMENOrdering Facility: External Submitter Address: , , Performed By: #### U ACR, 17576-4 ####[facility] LABCLIA [id number] [address] [place] [facility] Albumin/Creatinine (U) [Mass ratio] <18 Normal <30 [facility] Comment on above: Order Comment: Speci men Type: URINE SPECIMENOrdering Facility: External Submitter Address: , , Result Comment: Adul t Male and Female Nephrotic Criteria: <30 mg/g is considered normal to mildly increased 30-300 mg/g is considered moderately increased >300 mg/g is considered severely increased KDIGO. (2013). KDIGO 2012 Clinical Practice Guideline for the Evaluation and Management of Chronic Kidney Disease. Official Journal of the International Society of Nephrology, 3(1), 1-150. Performed By: #### U ACR, 27832-4 ####[facility] LABCLIA [id number] [id number], [place] [address] [place] CBC W Auto Differential pane l (Bld)on 02-06-2023 Basophils (Bld) [#/Vol] 0.03 10*3/uL Normal <0.11 [facility] Comment on above: Order Comment: Speci men Type: BLOOD SPECIMENOrdering Facility: [facility] Address: [address] [place] [address] Performed By: #### 5 7021-8 ####[facility] LABCLIA [id number] [place] [address] Basophils/100 WBC (Bld) 0.9 % Normal [facility] Comment on above: Order Comment: Speci men Type: BLOOD SPECIMENOrdering Facility: [facility] Address: [address] [place] [address] Performed By: #### 5 7021-8 ####[facility] LABCLIA [id number] [place] [address] Differential cell count method Nom (Bld) Auto Normal [facility] Comment on above: Order Comment: Speci men Type: BLOOD SPECIMENOrdering Facility: [facility] Address: [address] [place] [address] Performed By: #### 5 7021-8 ####[facility] LABCLIA [id number] [place] [address] Eosinophils (Bld) [#/Vol] 0.05 10*3/uL Normal <0.46 [facility] Comment on above: Order Comment: Speci men Type: BLOOD SPECIMENOrdering Facility: [facility] Address: [address] [place] [address] Performed By: #### 5 7021-8 ####[facility] LABCLIA [id number] [place] [address] Eosinophils/100 WBC (Bld) 1.5 % Normal [facility] Comment on above: Order Comment: Speci men Type: BLOOD SPECIMENOrdering Facility: [facility] Address: [address] [place] [address] Performed By: #### 5 7021-8 ####[facility] LABCLIA [id number] [place] [address] Erythrocyte distribution width (RBC) [Ratio] 12.8 % Normal 11.5-15.0 [facility] Comment on above: Order Comment: Speci men Type: BLOOD SPECIMENOrdering Facility: [facility] Address: [address] [place] [address] Performed By: #### 5 7021-8 ####[facility] LABCLIA [id number] [place] [address] Hematocrit (Bld) [Volume fraction] 37.6 % Low 39.0-51.0 [facility] Comment on above: Order Comment: Speci men Type: BLOOD SPECIMENOrdering Facility: [facility] Address: [address] [place] [address] Performed By: #### 5 7021-8 ####[facility] LABCLIA [id number] [place] [address] Hemoglobin (Bld) [Mass/Vol] 12.6 g/dL Low 13.0-17.0 [facility] Comment on above: Order Comment: Speci men Type: BLOOD SPECIMENOrdering Facility: [facility] Address: [address] [place] [address] Performed By: #### 5 7021-8 ####[facility] LABCLIA [id number] [place] [address] Immature granulocytes (Bld) [#/Vol] 10*3/uL Normal <0.10 [facility] Comment on above: Order Comment: Speci men Type: BLOOD SPECIMENOrdering Facility: [facility] Address: [address] [place] [address] Performed By: #### 5 7021-8 ####[facility] LABIA [id number] [place] [address] Immature granulocytes/100 WBC (Bld) 0.6 % Normal [facility] Comment on above: Order Comment: Speci men Type: BLOOD SPECIMENOrdering Facility: [facility] Address: [address] [place] [address] Performed By: #### 5 7021-8 ####[facility] LABCLIA [id number] [place] [address] Lymphocytes (Bld) [#/Vol] 0.53 10*3/uL Low 1.00-4.00 [facility] Comment on above: Order Comment: Speci men Type: BLOOD SPECIMENOrdering Facility: [facility] Address: [address] [place] [address] Performed By: #### 5 7021-8 ####[facility] LABCLIA [id number] [place] [address] Lymphocytes/100 WBC (Bld) 15.5 % Normal [facility] Comment on above: Order Comment: Speci men Type: BLOOD SPECIMENOrdering Facility: [facility] Address: [address] [place] [address] Performed By: #### 5 7021-8 ####[facility] LABIA [id number] [place] [address] MCH (RBC) [Entitic mass] 32.0 pg Normal 26.0-34.0 [facility] Comment on above: Order Comment: Speci men Type: BLOOD SPECIMENOrdering Facility: [facility] Address: [address] [place] [address] Performed By: #### 5 7021-8 ####[facility] LABIA [id number] [place] [address] MCHC (RBC) [Mass/Vol] 33.5 g/dL Normal 30.5-36.0 [facility] Comment on above: Order Comment: Speci men Type: BLOOD SPECIMENOrdering Facility: [facility] Address: [address] [place] [address] Performed By: #### 5 7021-8 ####[facility] LABCLIA [id number] [place] [address] MCV (RBC) [Entitic vol] 95.4 fL Normal 80.0-100.0 [facility] Comment on above: Order Comment: Speci men Type: BLOOD SPECIMENOrdering Facility: [facility] Address: [address] [place] [address] Performed By: #### 5 7021-8 ####[facility] LABCLIA [id number] [place] [address] Monocytes (Bld) [#/Vol] 0.32 10*3/uL Normal <0.87 [facility] Comment on above: Order Comment: Speci men Type: BLOOD SPECIMENOrdering Facility: [facility] Address: [address] [place] [address] Performed By: #### 5 7021-8 ####[facility] LABCLIA [id number] [place] [address] Monocytes/100 WBC (Bld) 9.3 % Normal [facility] Comment on above: Order Comment: Speci men Type: BLOOD SPECIMENOrdering Facility: [facility] Address: [address] [place] [address] Performed By: #### 5 7021-8 ####[facility] LABCLIA [id number] [place] [address] Neutrophils (Bld) [#/Vol] 2.48 10*3/uL Normal 1.45-7.50 [facility] Comment on above: Order Comment: Speci men Type: BLOOD SPECIMENOrdering Facility: [facility] Address: [address] [place] [address] Performed By: #### 5 7021-8 ####[facility] LABCLIA [id number] [place] [address] Neutrophils/100 WBC (Bld) 72.2 % Normal [facility] Comment on above: Order Comment: Speci men Type: BLOOD SPECIMENOrdering Facility: [facility] Address: [address] [address] Performed By: #### 5 7021-8 ####[facility] LABCLIA [id number] [place] [address] Nucleated RBC (Bld) [#/Vol] 10*3/uL Normal <0.01 [facility] Comment on above: Order Comment: Speci men Type: BLOOD SPECIMENOrdering Facility: [facility] Address: [address] [address] Performed By: #### 5 7021-8 ####[facility] LABCLIA [id number] [place] [address] Nucleated RBC/100 WBC (Bld) [Ratio] 0.0 /100 WBC Normal [facility] Comment on above: Order Comment: Speci men Type: BLOOD SPECIMENOrdering Facility: [facility] Address: [address] [address] Performed By: #### 5 7021-8 ####[facility] LABCLIA [id number] [place] [address] Platelet mean volume (Bld) [Entitic vol] 9.4 fL Normal 9.0-12.7 [facility] Comment on above: Order Comment: Speci men Type: BLOOD SPECIMENOrdering Facility: [facility] Address: [address] Performed By: #### 5 7021-8 ####[facility] LABCLIA [id number] [place] [address] Platelets (Bld) [#/Vol] 153 10*3/uL Normal 150-400 [facility] Comment on above: Order Comment: Speci men Type: BLOOD SPECIMENOrdering Facility: [facility] Address: [address] [place] [address] Performed By: #### 5 7021-8 ####[facility] LABCLIA [id number] [place] [address] RBC (Bld) [#/Vol] 3.94 10*6/uL Low 4.20-6.00 [facility] Comment on above: Order Comment: Speci men Type: BLOOD SPECIMENOrdering Facility: [facility] Address: [address] [place], [place] [address] Performed By: #### 5 7021-8 ####[facility] LABCLIA [id number] [place] [address] WBC (Bld) [#/Vol] 3.43 10*3/uL Low 3.70-11.00 [facility] Comment on above: Order Comment: Speci men Type: BLOOD SPECIMENOrdering Facility: [facility] Address: [address] [place] [address] Performed By: #### 5 7021-8 ####[facility] LABCLIA [id number] [place] [address] CNOVon 02-06-2023 CNOV Office Visit (RADTSA ) MANISH ROOT ([id number]) 1945 M Date Time Provider Department 02/06/23 11:45 AM Yordan FELIZ RADTSA During your visit today, we recorded the following information about you: Temperature Pulse Respiration Blood pressure 97.3 degrees 56/minute 16/minute 142/67 Weight 80.7 kg Yordan Feliz MD 02/11/2023 9:00 AM Signed Radiation Oncology - Follow Up Note PATIENT NAME: Manish Root PATIENT DIAGNOSIS: Oropharyngeal cancer, 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 INTERVAL HISTORY: Doing well. Taste and swallowing continues to improve. Denies neck pain otalgia or other new issues. Denies cough fever or shortness of breath. PET/CT 01/29/2023:1. Neck: No suspicious hypermetabolic foci. Posttreatment change. 2. Chest: New hypermetabolic right upper lobe lung nodule. Differential includes inflammatory/neoplast ic process. 3. Abdomen and pelvis: No evidence of FDG avid neoplastic process 4. Skeleton: No hypermetabolic osseous lesions ALLERGIES No Known Allergies MEDICATIONS: ergocalciferol 50,000 unit capsule (VITAMIN D2, DRISDOL) TAKE 1 CAPSULE BY MOUTH WEEKLY metFORMIN (GLUCOPHAGE) 500 mg tablet TAKE 2 TABLETS BY MOUTH EVERY MORNING and TAKE 1 TABLET BY MOUTH IN THE EVENING metoprolol succinate ER (TOPROL XL) 25 mg 24 hr tablet Take 25 mg by mouth once daily. fenofibrate (LOFIBRA) 134 mg capsule Take 134 mg by mouth once daily. Aspirin 81 mg tab Take 81 mg by mouth once daily. ondansetron (ZOFRAN) 8 mg tablet Take 1 tablet by mouth every 8 hours as needed for nausea/vomiting. prochlorperazine (COMPAZINE) 10 mg tablet Take 1 tablet by mouth every 6 hours as needed. REVIEW OF SYSTEMS: PAIN ASSESSMENT: Negative for pain, history of chronic pain, or current treatment for a chronic pain condition. NECK: Negative for goiter, pain or significant neck swelling RESPIRATORY: Negative for cough, hemoptysis, wheezing, COPD, dyspnea or shortness of breath CARDIOVASCULAR: Negative for chest pain, leg swelling, hypertension, CHF or palpitations GI: No nausea, vomiting, or diarrhea : No history of dysuria, frequency or incontinence MUSCULOSKELETAL: Negative for joint pain or swelling, back pain or muscle pain NEURO: No history of headaches, syncope, paralysis, seizures or tremors The remainder of the review of systems is negative. PHYSICAL EXAM: 02/06/23 1159 BP: 142/67 Pulse: (!) 56 Resp: 16 Temp: 36.3 ?C (97.3 ?F) Weight: 80.7 kg (178 lb) KPS: 100 General Appearance: Well appearing, alert, in no acute distress, well-hydrated, well nourished.. Skin: Skin color, texture, turgor normal, no suspicious rashes or lesions. Oropharynx: Lips, mucosa, and tongue normal, teeth and gums normal, oropharynx normal. Neck: Supple, no adenopathy or masses Lungs: Lungs clear to auscultation. No wheezing, rhonchi, rales.. Neurologic: Gait normal. Reflexes normal and symmetric. Sensation grossly intact.. Lymph Nodes: No cervical lymphadenopathy, No supraclavicular lymphadenopathy, No axillary lymphadenopathy. 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 1. Oropharyngeal cancer. Doing well. Complete response radiographically. He continues close follow-up with Dr. Morales. 2. Lung nodule PET/CT, has inflammatory appearance. CT scheduled for 6 to 8 weeks for follow-up. Signed by: Yordan Feliz MD cc: Dr. 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 - prochlorperazine (COMPAZINE) 10 mg tablet Take 1 tablet by mouth every 6 hours as needed. - ergocalciferol 50,000 unit capsule (VITAMIN D2, DRISDOL) TAKE 1 CAPSULE BY MOUTH WEEKLY - metFORMIN (GLUCOPHAGE) 500 mg tablet TAKE 2 TABLETS BY MOUTH EVERY MORNING and TAKE 1 TABLET BY MOUTH IN THE EVENING - metoprolol succinate ER (TOPROL XL) 25 mg 24 hr tablet Take 25 mg by mouth once daily. - fen (more content not included)... Normal [facility] CNOVSPon 02-06-2023 CNOVSP Visit (SP) Office (HEMASA) MANISH ROOT ([id number]) 1945 M Date Time Provider Department 02/06/23 11:00 AM JOHN ENGLAND During your visit today, we recorded the following information about you: Temperature Pulse Respiration Blood pressure 97.3 degrees 56/minute 16/minute 142/67 Weight Height 80.9 kg 1.669 m Lala Hooper MA 02/06/2023 11:34 AM Signed Patient has easy bruising more so on arms, voice is always changing and has a lot of phlegm. TREVOR Reynolds Vivek, MD 02/06/2023 12:24 PM Signed NAME: Manish Root [facility] NO.: [id number] DATE OF SERVICE: February 06, 2023 (Jacquelyn) Some elements in this clinic note that are critical to medical decision making have been carefully reviewed and included from a prior clinic note dated: November 07, 2022 (Jacquelyn) Referring Provider: Dr. Татьяна Feliz Additional Clinicians involved in Manish Root's care: DIAGNOSIS: Base of Tongue squamous cell ca. 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 He has a prior history of colon cancer in 1999. July 31, 2022 - Stage : T3 N1a M0 Completed treatment and is eating better. Neutropenia resolved. PET with right lung lesion - will get [address] chest PLAN: CT Chest in 5 weeks RTC 6 weeks to review please - HPI: CASE HISTORY: Reverse Chronological Order 01/29/2023 - Chest: New hypermetabolic right upper lobe lung nodule. Differential includes inflammatory /neoplastic process 09/03/2022 - 10/08/2022 - Cisplatin total dose 240 mg/m2 with RT 07/31/2022 examination under anesthesia/panendosco py. Findings included a friable exophytic mass left base of tongue extending into the vallecula. No other significant findings on laryngoscopy. 07/27/2022 CT neck: with contrast which demonstrated a 5 x 4.5 x 2.5 cm mass arising from the left base of tongue injecting into the hypopharynx and displacing the epiglottis posterior and inferior with narrowing of the hypopharynx. In addition a level 2 left-sided lymph node measuring 1.7 x 1.0 x 1.0 cm suspicious for metastatic disease. June 2022 - voice changed and trouble swallowing. February 2022 - started losing weight 1999 - Colon Ca Stage 3 - 2/5 LN + [place] regimen on protocol Updated Visit, February 06, 2023: Doing ok but has productive cough and vocal changes Reviewed PET showing a new consolidation in right lung that could be infectious / malignant. Will repeat CT Chest. He is anxious. Updated Visit, November 07, 2022: Manish returns with Jahaira. Eating is much better but taste is not back. Neutropenia resolved. Updated Visit, October 31, 2022: Manish Root returns for follow-up. He still altered taste. He has no sense for sweet foods. He continues to have intermittent mouth dryness. He denies mouth sores. His weight is over all stable. He denies fevers, chills, night sweats and signs/symptoms of infection. He complains of increase in phlegm production Updated Visit, October 25, 2022: Manish Root returns for follow-up. He received Neupogen 400 mcg on 10/19/2022. He remains on Cipro prophylaxis. He denies fevers, chills, night sweats and signs/symptoms of infection. No bleeding. He has some bruising. He states that everything tastes terrible. He complains of dry mouth. He denies any difficulty swallowing. Updated Visit, October 19, 2022: Manish returns with Jahaira and is doing well. Feeling better but is neutropenic from chemotherapy. Really re-inforced education regarding neutropenia and fevers. Updated Visit, October 01, 2022: Manish Root returns for follow-up and treatment. He remains on weekly cisplatin concurrent with radiation and overall is tolerating fairly well. He has 14 radiation treatments remaining. He states that he has no taste. He does not eat and drink enough. He denies difficulty swallowing. He denies any unusual pain. He has occasional nausea and takes the prescribed antiemetics. His weight is down. He states that he has a sinus infection and gets these regularly. He is typically treated by Dr. Nelson. He is requesting an antibiotic be called into his pharmacy. He denies fevers. Overall he is doing fairly well and wishes to proceed with treatment as planned. Updated Visit, September 10, 2022: Doing well. No side effects. Noted some improvement in ability to swallow and has gained 2 lbs. Lbas safe to continue. Updated Visit, September 03, 2022: Manish returns with his Jahaira. Ready to start chemo + RT - RT started. Ready for cisplatin. Initial Visit, August 16, 2022: Manish Root presents today Hematology and Oncology evaluation. He is a 76 year old male who presents with his (more content not included)... Normal [facility] Comprehensive metabolic 2000 panelon 02-06-2023 Albumin [Mass/Vol] 4.5 g/dL Normal 3.9-4.9 [facility] Comment on above: Order Comment: Speci men Type: BLOOD SPECIMENOrdering Facility: [facility] Address: [address] [place] [address] Performed By: #### 2 4323-8 ####[facility] LABCLIA [id number] [place] [address] ALP [Catalytic activity/Vol] 58 U/L Normal 38-113 [facility] Comment on above: Order Comment: Speci men Type: BLOOD SPECIMENOrdering Facility: [facility] Address: [address] [address] Performed By: #### 2 4323-8 ####[facility] LABCLIA [id number] [place] [address] ALT [Catalytic activity/Vol] 9 U/L Low 10-54 [facility] Comment on above: Order Comment: Speci men Type: BLOOD SPECIMENOrdering Facility: [facility] Address: [address] [place] [address] Performed By: #### 2 4323-8 ####[facility] LABCLIA [id number] [place] [address] Anion gap [Moles/Vol] 7 mmol/L Low 9-18 [facility] Comment on above: Order Comment: Speci men Type: BLOOD SPECIMENOrdering Facility: [facility] Address: [address] [place] [address] Performed By: #### 2 4323-8 ####[facility] LABCLIA [id number] [place] [address] AST [Catalytic activity/Vol] 13 U/L Low 14-40 [facility] Comment on above: Order Comment: Speci men Type: BLOOD SPECIMENOrdering Facility: [facility] Address: [address] [place] [address] Performed By: #### 2 4323-8 ####[facility] LABCLIA [id number] [place] [address] Bilirubin [Mass/Vol] 0.3 mg/dL Normal 0.2-1.3 [facility] Comment on above: Order Comment: Speci men Type: BLOOD SPECIMENOrdering Facility: [facility] Address: [address] [place] [address] Performed By: #### 2 4323-8 ####[facility] LABCLIA [id number] [place] [address] Calcium [Mass/Vol] 9.9 mg/dL Normal 8.5-10.2 [facility] Comment on above: Order Comment: Speci men Type: BLOOD SPECIMENOrdering Facility: [facility] Address: [address] [place] [address] Performed By: #### 2 4323-8 ####[facility] LABCLIA [id number] [place] [address] Chloride [Moles/Vol] 102 mmol/L Normal 97-105 [facility] Comment on above: Order Comment: Speci men Type: BLOOD SPECIMENOrdering Facility: [facility] Address: [address] [address] Performed By: #### 2 4323-8 ####[facility] LABCLIA [id number] [place] [address] CO2 [Moles/Vol] 30 mmol/L Normal 22-30 [facility] Comment on above: Order Comment: Speci men Type: BLOOD SPECIMENOrdering Facility: [facility] Address: [address] [place] [address] Performed By: #### 2 4323-8 ####[facility] LABCLIA [id number] [place] [address] Creatinine [Mass/Vol] 1.20 mg/dL Normal 0.73-1.22 [facility] Comment on above: Order Comment: Speci men Type: BLOOD SPECIMENOrdering Facility: [facility] Address: [address] [place] [address] Performed By: #### 2 4323-8 ####[facility] LABCLIA [id number] [place] [address] ESTIMATED GLOMERULAR FILTRATION RATE 62 mL/min/1.73m??? Normal >=60 [facility] Comment on above: Order Comment: Speci men Type: BLOOD SPECIMENOrdering Facility: [facility] Address: [address] [place] [address] Result Comment: Felicity mated Glomerular Filtration Rate (eGFR) is calculated using the 2020 CKD-EPI creatinine equation. This equation utilizes serum creatinine, sex, and age as parameters. The creatinine assay has traceable calibration to isotope dilution-mass spectrometry. Refer to KDIGO guidelines for clinical interpretation. In patients with unstable renal function, e.g. those with acute kidney injury, the eGFR may not accurately reflect actual GFR. Performed By: #### 2 4323-8 ####[facility] LABCLIA [id number] [place] [address] Glucose [Mass/Vol] 98 mg/dL Normal 74-99 [facility] Comment on above: Order Comment: Speci men Type: BLOOD SPECIMENOrdering Facility: [facility] Address: [address] [place] [address] Result Comment: The [place] Diabetes [employer] (ADA) provides guidance for cutoff values for fasting glucose and random glucose. The ADA defines fasting as no caloric intake for at least 8 hours. Fasting plasma glucose results between 100 to 125 mg/dL indicate increased risk for diabetes (prediabetes). Fasting plasma glucose results greater than or equal to 126 mg/dL meet the criteria for diagnosis of diabetes. In the absence of unequivocal hyperglycemia, results should be confirmed by repeat testing. In a patient with classic symptoms of hyperglycemia or hyperglycemic crisis, random plasma glucose results greater than or equal to 200 mg/dL meet the criteria for diagnosis of diabetes. Reference: Standards of Medical Care in Diabetes 2016, [place] [employer] Association. Diabetes Care. 2016.39(Suppl 1). Performed By: #### 2 4323-8 ####[facility] LABCLIA [id number] [place] [address] Potassium [Moles/Vol] 4.9 mmol/L Normal 3.7-5.1 [facility] Comment on above: Order Comment: Speci men Type: BLOOD SPECIMENOrdering Facility: [facility] Address: [address] [place] [address] Performed By: #### 2 4323-8 ####[facility] LABCLIA [id number] [place] [address] Protein [Mass/Vol] 6.7 g/dL Normal 6.3-8.0 [facility] Comment on above: Order Comment: Speci men Type: BLOOD SPECIMENOrdering Facility: [facility] Address: [address] [address] Performed By: #### 2 4323-8 ####[facility] LABCLIA [id number] [place] [address] Sodium [Moles/Vol] 139 mmol/L Normal 136-144 [facility] Comment on above: Order Comment: Speci men Type: BLOOD SPECIMENOrdering Facility: [facility] Address: [address] [address] Performed By: #### 2 4323-8 ####[facility] LABCLIA [id number] [place] [address] Urea nitrogen [Mass/Vol] 25 mg/dL High 9-24 [facility] Comment on above: Order Comment: Speci men Type: BLOOD SPECIMENOrdering Facility: [facility] Address: [address] [address] Performed By: #### 2 4323-8 ####[facility] LABCLIA [id number] [place] [address] Creat ? [facility] Creatinine (U) [Mass/Vol] 67.2 mg/dL Normal 20.0-300.0 [facility] Comment on above: Order Comment: Speci men Type: BLOOD SPECIMEN [facility] Address: [address] [address] Performed By: #### 2 4323-8 #### [facility] CLIA [id number] [address] [place] [address] Order Comment: Speci men Type: URINE SPECIMENOrdering Facility: External Submitter Address: , , Performed By: #### U ACR, 68977-3 ####[facility] LABCLIA [id number] [facility] [place] [address] [place] HbA1c (Bld)on 02-06-2023 Average glucose Estimated from glycated hemoglobin (Bld) [Mass/Vol] 117 mg/dL Normal [facility] Comment on above: Order Comment: Marleen beauchamp Type: BLOOD SPECIMEN Ordering Facility: External Submitter Address: , , Result Comment: eAG: (Estimated average glucose) is a calculated value from HgbA1c and is insurance claim representative of the average blood glucose level in the last 2-3 month period. Performed By: #### 5 5454-3 #### [facility] CLIA [id number] [address] [place] [address] [place] HbA1c (Bld) [Mass fraction] 5.7 % High 4.3-5.6 [facility] Comment on above: Order Comment: Marleen beauchamp Type: BLOOD SPECIMEN Ordering Facility: External Submitter Address: , , Result Comment: Joann [place] Diabetes Association guidelines indicate that patients with HgbA1c in the range 5.7-6.4% are at increased risk for development of diabetes, and intervention by lifestyle modification may be beneficial. HgbA1c greater or equal to 6.5% is considered diagnostic of diabetes. Performed By: #### 5 5454-3 #### [facility] CLIA [id number] [facility] [place] [address] [place] Lipid 1996 panelon 3 Cholesterol [Mass/Vol] 168 mg/dL Normal <200 [facility] Comment on above: Order Comment: Marleen beauchamp Type: BLOOD SPECIMEN [facility] Address: [address] [place] [address] Result Comment: <200 mg/dL, Desirable 200-239 mg/dL, Borderline high >239 mg/dL, High Performed By: #### 2 4323-8 #### [facility] CLIA [id number] [address] [place] [address] Cholesterol in HDL [Mass/Vol] 41 mg/dL Normal >39 [facility] Comment on above: Order Comment: Marleen beauchamp Type: BLOOD SPECIMEN [facility] Address: [address] [place] [address] Result Comment: 40-5 9 mg/dL, Acceptable >59 mg/dL, High: Negative risk factor for coronary heart disease <40 mg/dL, Low: Positive risk factor for coronary heart disease Performed By: #### 2 4323-8 #### [facility] CLIA [id number] [address] [place] [address] 89920 Cholesterol in LDL [Mass/Vol] 109 mg/dL High <100 [facility] Comment on above: Order Comment: Speci men Type: BLOOD SPECIMEN Ordering Facility: [facility] Address: [address] [place] [address] Result Comment: <100 mg/dL, Optimal 100-129 mg/dL, Near optimal/above optimal 130-159 mg/dL, Borderline high 160-189 mg/dL, High >189 mg/dL, Very high Secondary prevention optimal LDL Cholesterol levels are recommended to be < 70 mg/dL Performed By: #### 2 4323-8 #### [facility] CLIA [id number] [address] [place] [address] 93895 Cholesterol in LDL/Cholesterol in HDL [Mass ratio] 2.66 {ratio} High <2.54 [facility] Comment on above: Order Comment: Speci men Type: BLOOD SPECIMEN Ordering Facility: [facility] Address: [address] [place] [address] Result Comment: Refe rence: 1. National Cholesterol Education Program ATP III Guideline At-A-Glance Quick Desk Reference: National Heart, Lung, and Blood [place]. National Institutes of Health. 2001: NIH Publication No. 01-3305. 2. An International Atherosclerosis Society position paper: global recommendations for the management of dyslipidemia: executive summary, Atherosclerosis. 2014: 232(2):410-413. Performed By: #### 2 4323-8 #### [facility] CLIA [id number] [address] [place] [address] 39343 Cholesterol in VLDL [Mass/Vol] 18 mg/dL Normal <30 [facility] Comment on above: Order Comment: Speci men Type: BLOOD SPECIMEN Ordering Facility: [facility] Address: [address] [place] [address] Performed By: #### 2 4323-8 #### [facility] CLIA [id number] [address] [place] [address] Cholesterol non HDL [Mass/Vol] 127 mg/dL Normal <130 [facility] Comment on above: Order Comment: Speci men Type: BLOOD SPECIMEN Ordering Facility: [facility] Address: [address] [address] Result Comment: <130 mg/dL, Optimal 130-159 mg/dL, Near optimal/above optimal 160-189 mg/dL, Borderline high 190-219 mg/dL, High >219 mg/dL, Very high Secondary prevention optimal non HDL Cholesterol levels are recommended to be <100 mg/dL Performed By: #### 2 4323-8 #### [facility] CLIA [id number] [address] [place] [address] 93234 Cholesterol.total/Ch olesterol in HDL [Mass ratio] 4.10 {ratio} Normal <5.10 [facility] Comment on above: Order Comment: Speci men Type: BLOOD SPECIMEN Ordering Facility: [facility] Address: [address] [address] Performed By: #### 2 4323-8 #### [facility] CLIA [id number] [address] [place] [address] 62838 FASTING TIME 12 hrs Normal [facility] Comment on above: Order Comment: Speci men Type: BLOOD SPECIMEN Ordering Facility: [facility] Address: [address] [place] [address] Performed By: #### 2 4323-8 #### [facility] CLIA [id number] [address] [place] [address] 79140 Triglyceride [Mass/Vol] 89 mg/dL Normal <150 [facility] Comment on above: Order Comment: Speci men Type: BLOOD SPECIMEN Ordering Facility: [facility] Address: [address] [address] Result Comment: <150 mg/dL, Normal 150-199 mg/dL, Borderline high 200-499 mg/dL, High >499 mg/dL, Very high Performed By: #### 2 4323-8 #### [facility] CLIA [id number] [address] [place] [address] NM PET/CT SKULL-THIGH SUBQon 01-29-2023 NM PET/CT SKULL-THIGH SUBQ * * *Final Report* * * DATE OF EXAM: Jan 29 2023 12:21PM NRN 0063 - NM PET/CT SKULL-THIGH SUBQ / PROCEDURE REASON: 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) * * * * Physician Interpretation * * * * RESULT: FDG PET/CT SCAN: CLINICAL HISTORY: Tongue base cancer. INDICATION: Subsequent treatment strategy. TECHNIQUE: 9.7 mCi 18-FDG IV, followed about 1 hour later by PET imaging from base of the skull to proximal femur with head and neck imaging. Non contrast CT was performed for attenuation correction and anatomic localization purposes. CT Dose-Length Product (DLP): 275 mGy*cm. CT Dose Reduction Employed: Yes BLOOD GLUCOSE: 124 mg/dL Comparison: Prior PET CT dated 08/27/2022. RESULT: HEAD AND NECK: Likely physiological activity in the oral cavity, tonsillar regions, salivary glands, visualized brain. Significant interval resolution of the previously present intense hypermetabolic focus in the tongue base region. Mild diffuse uptake likely posttreatment change. There is resolution of previously present hypermetabolic left cervical lymphadenopathy. No suspicious hypermetabolic foci. There is no hypermetabolic cervical lymphadenopathy. CHEST: There are aortic and coronary calcifications. There is no hypermetabolic hilar or mediastinal lymphadenopathy. There is no hypermetabolic axillary lymphadenopathy. There is a hypermetabolic right upper lobe lung nodule measuring about 2.2 x 2.3 cm (max SUV 4.6). ABDOMEN AND PELVIS: The liver is slightly heterogeneous activity but no focal lesions are identified. There are no hypermetabolic foci in the liver, spleen, adrenals. There is no hypermetabolic abdominal or pelvic lymphadenopathy. Physiologic activity is noted in the liver, renal collecting system, bladder and bowel. Distended urinary bladder. Enlarged prostate. SKELETON: There are no hypermetabolic osseous lesions. Project Landscape Architect (topogram) images:No additional findings. -- IMPRESSION: 1. Neck: No suspicious hypermetabolic foci. Posttreatment change. 2. Chest: New hypermetabolic right upper lobe lung nodule. Differential includes inflammatory/neoplast ic process. 3. Abdomen and pelvis: No evidence of FDG avid neoplastic process 4. Skeleton: No hypermetabolic osseous lesions Transcribe Date/Time: Jan 29 2023 12:26P Dictated by: GINA HAMPTON MD This examination was interpreted and the report reviewed and electronically signed by: GINA HAMPTON MD on Jan 29 2023 12:38PM EST Thank you for allowing us to participate in the care of your patient. Should there be any questions regarding this interpretation, please call [phone]. If you are unable to reach us at the number above, please feel free to contact [facility] at [phone]. 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 INTERVAL HISTORY: Doing much better. Swelling has improved considerably. No significant oral cavity oropharyngeal or neck pain. ALLERGIES No Known Allergies MEDICATIONS: ergocalciferol 50,000 unit capsule (VITAMIN D2, DRISDOL) TAKE 1 CAPSULE BY MOUTH WEEKLY metFORMIN (GLUCOPHAGE) 500 mg tablet TAKE 2 TABLETS BY MOUTH EVERY MORNING and TAKE 1 TABLET BY MOUTH IN THE EVENING metoprolol succinate ER (TOPROL XL) 25 mg 24 hr tablet Take 25 mg by mouth once daily. fenofibrate (LOFIBRA) 134 mg capsule Take 134 mg by mouth once daily. Aspirin 81 mg tab Take 81 mg by mouth once daily. ondansetron (ZOFRAN) 8 mg tablet Take 1 tablet by mouth every 8 hours as needed for nausea/vomiting. prochlorperazine (COMPAZINE) 10 mg tablet Take 1 tablet by mouth every 6 hours as needed. REVIEW OF SYSTEMS: GENERAL: Appetite improving. HEENT: See HPI NECK: Negative for masses in the neck. RESPIRATORY: Negative for cough or shortness of breath. CARDIAC: Negative for chest pain, palpitations, murmurs, or syncopal episodes. NEURO: Negative for dizziness, headache, weakness or numbness. HEMATOLOGIC: Negative for bleeding or easy bruising. SKIN: SEE HPI. PHYSICAL EXAM: 11/28/22 1437 BP: 165/69 Pulse: 66 Resp: 18 Temp: (!) 35.9 ?C (96.7 ?F) SpO2: 97% Weight: 78.5 kg (173 lb) KPS: 100 General Appearance: Alert and oriented. No acute distress. HEENT: NCAT. Sclera anicteric. PERRL. EOMI. Oral cavity and oropharynx: Mild erythema without ulceration, posterior oropharynx somewhat asymmetric tongue, no palpable suspicious areas. Neck: Normal ROM. No palpable cervical or supraclavicular adenopathy. Neuro: Speech fluent. Gait normal. No focal deficits. Skin: No rashes noted Lymphatics: No palpable lymphadenopathy. 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 Patient doing well with with resolving acute radiation related issues. No evidence of persistent or recurrent disease. He continues close follow-up with Dr. Morales. PET scan ordered for 12 weeks from completion of treatment. We will plan to see patient back i after his PET scan. Signed by: Yordan Feliz MD cc: Mannie Nelson [address] [place] [address] Maryam Hodgson [address] [place] [address] [place] [address] Referring Provider: Yordan FELIZ [[id number]] Allergies As of Date: 11/28/2022 (No Known Allergies) Date Reviewed: 11/28/2022 Reviewed by: Nela Samayoa RN - Fully Assessed Reason for Visit: Head and Neck Cancer [551] Primary Visit Diagnosis: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) [C01] Order(s):NM PET/CT SKULL-THIGH SUBSEQUENT [[id number]] Order #: [id number] FUTURE Prescriptions as of 12/04/2022 - ondansetron (ZOFRAN) 8 mg tablet Take 1 tablet by mouth every 8 hours as needed for nausea/vomiting. - prochlorperazine (COMPAZINE) 10 mg tablet Take 1 tablet by mouth every 6 hours as needed. - ergocalciferol 50,000 unit capsule (VITAMIN D2, DRISDOL) TAKE 1 CAPSULE BY MOUTH WEEKLY - metFORMIN (GLUCOPHAGE) 500 mg tablet TAKE 2 TABLETS BY MOUTH EVERY MORNING and TAKE 1 TABLET BY MOUTH IN THE EVENING - metoprolol succinate ER (TOPROL XL) 25 mg 24 hr tablet Take 25 mg by mouth once daily. - fenofibrate (LOFIBRA) 134 mg capsule Take 134 mg by mouth once daily. - Aspirin 81 mg tab Take 81 mg by mouth once daily. Problem List As Of Date 11/28/2022 Noted Resolved Colon cancer [C18.9] 11/19/2012 Overlapping malignant neoplasm of colon (HCC) [*04/28/2015 04/28/2015 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) [C01] 08/21/2022 Chemotherapy-induced neutropenia (HCC) [D70.1, *10/19/2022 Stage 3 chronic kidney disease, unspecified whe*2022 Disposition: Return in about 7 weeks (around 01/16/2023). Follow-up and Disposition History for Encounter Date Provider Department Center 11/28/2022 [id number] (more content not included)... Normal [facility] CBC W Auto Differential pane l (Bld)on 11-07-2022 Basophils (Bld) [#/Vol] 10*3/uL Normal <0.11 [facility] Comment on above: Order Comment: Speci men Type: BLOOD SPECIMEN Ordering Facility: [facility] Address: [address] [address] Performed By: #### 2 4323-8 #### [facility] CLIA [id number] [address] [place] [address] 87392 Basophils/100 WBC (Bld) 0.6 % Normal [facility] Comment on above: Order Comment: Speci men Type: BLOOD SPECIMEN Ordering Facility: [facility] Address: [address] [place] [address] Performed By: #### 2 4323-8 #### [facility] CLIA [id number] [address] [place] [address] 85668 Differential cell count method Nom (Bld) Auto Normal [facility] Comment on above: Order Comment: Speci men Type: BLOOD SPECIMEN Ordering Facility: [facility] Address: [address] [place] [address] Performed By: #### 2 4323-8 #### [facility] CLIA [id number] [address] [place] [address] 22630 Eosinophils (Bld) [#/Vol] 10*3/uL Normal <0.46 [facility] Comment on above: Order Comment: Speci men Type: BLOOD SPECIMEN Ordering Facility: [facility] Address: [address] [address] Performed By: #### 2 4323-8 #### [facility] CLIA [id number] [address] [place] [address] 13082 Eosinophils/100 WBC (Bld) 0.6 % Normal [facility] Comment on above: Order Comment: Speci men Type: BLOOD SPECIMEN Ordering Facility: [facility] Address: [address] [place], [place] [id number] Performed By: #### 2 4323-8 #### [facility] CLIA [id number] [address] [place] [address] 48296 Erythrocyte distribution width (RBC) [Ratio] 16.7 % High 11.5-15.0 [facility] Comment on above: Order Comment: Speci men Type: BLOOD SPECIMEN Ordering Facility: [facility] Address: [address] [address] Performed By: #### 2 432-8 #### [facility] CLIA [id number] [address] [place] [address] 83011 Hematocrit (Bld) [Volume fraction] 32.2 % Low 39.0-51.0 [facility] Comment on above: Order Comment: Speci men Type: BLOOD SPECIMEN Ordering Facility: [facility] Address: [address] [address] Performed By: #### 2 4323-8 #### [facility] CLIA [id number] [address] [place] [address] 80116 Hemoglobin (Bld) [Mass/Vol] 11.0 g/dL Low 13.0-17.0 [facility] Comment on above: Order Comment: Speci men Type: BLOOD SPECIMEN Ordering Facility: [facility] Address: [address] [address] Performed By: #### 2 4323-8 #### [facility] CLIA [id number] [address] [place] [address] 83220 Immature granulocytes (Bld) [#/Vol] 0.03 10*3/uL Normal <0.10 [facility] Comment on above: Order Comment: Speci men Type: BLOOD SPECIMEN Ordering Facility: [facility] Address: [address] [address] Performed By: #### 2 4323-8 #### [facility] CLIA [id number] [address] [place] [address] 40951 Immature granulocytes/100 WBC (Bld) 0.9 % Normal [facility] Comment on above: Order Comment: Speci men Type: BLOOD SPECIMEN Ordering Facility: [facility] Address: [address] [address] Performed By: #### 2 4323-8 #### [facility] CLIA [id number] [address] [place] [address] 20379 Lymphocytes (Bld) [#/Vol] 0.31 10*3/uL Low 1.00-4.00 [facility] Comment on above: Order Comment: Speci men Type: BLOOD SPECIMEN Ordering Facility: [facility] Address: [address] [address] Performed By: #### 2 432-8 #### [facility] CLIA [id number] [address] [place] [address] 91373 Lymphocytes/100 WBC (Bld) 8.9 % Normal [facility] Comment on above: Order Comment: Speci men Type: BLOOD SPECIMEN Ordering Facility: [facility] Address: [address] [address] Performed By: #### 2 4323-8 #### [facility] CLIA [id number] [address] [place] [address] 83986 MCH (RBC) [Entitic mass] 31.5 pg Normal 26.0-34.0 [facility] Comment on above: Order Comment: Speci men Type: BLOOD SPECIMEN Ordering Facility: [facility] Address: [address] [address] Performed By: #### 2 432-8 #### [facility] CLIA [id number] [address] [place] [address] 10334 MCHC (RBC) [Mass/Vol] 34.2 g/dL Normal 30.5-36.0 [facility] Comment on above: Order Comment: Speci men Type: BLOOD SPECIMEN Ordering Facility: [facility] Address: [address] [address] Performed By: #### 2 4323-8 #### [facility] CLIA [id number] [address] [place] [address] 61899 MCV (RBC) [Entitic vol] 92.3 fL Normal 80.0-100.0 [facility] Comment on above: Order Comment: Speci men Type: BLOOD SPECIMEN Ordering Facility: [facility] Address: [address] [place] [address] Performed By: #### 2 4323-8 #### [facility] CLIA [id number] [address] [place] [address] 04380 Monocytes (Bld) [#/Vol] 0.38 10*3/uL Normal <0.87 [facility] Comment on above: Order Comment: Speci men Type: BLOOD SPECIMEN Ordering Facility: [facility] Address: [address] [place] [address] Performed By: #### 2 4323-8 #### [facility] CLIA [id number] [address] [place] [address] 72799 Monocytes/100 WBC (Bld) 11.0 % Normal [facility] Comment on above: Order Comment: Speci men Type: BLOOD SPECIMEN Ordering Facility: [facility] Address: [address] [place] [address] Performed By: #### 2 4323-8 #### [facility] CLIA [id number] [address] [place] [address] 42637 Neutrophils (Bld) [#/Vol] 2.71 10*3/uL Normal 1.45-7.50 [facility] Comment on above: Order Comment: Speci men Type: BLOOD SPECIMEN Ordering Facility: [facility] Address: [address] [place] [address] Performed By: #### 2 4323-8 #### [facility] CLIA [id number] [address] [place] [address] 51717 Neutrophils/100 WBC (Bld) 78.0 % Normal [facility] Comment on above: Order Comment: Speci men Type: BLOOD SPECIMEN Ordering Facility: [facility] Address: [address] [address] Performed By: #### 2 4323-8 #### [facility] CLIA [id number] [address] [place] [address] Nucleated RBC (Bld) [#/Vol] 10*3/uL Normal <0.01 [facility] Comment on above: Order Comment: Speci men Type: BLOOD SPECIMEN Ordering Facility: [facility] Address: [address] [address] Performed By: #### 2 4323-8 #### [facility] CLIA [id number] [address] [place] [address] Nucleated RBC/100 WBC (Bld) [Ratio] 0.0 /100 WBC Normal [facility] Comment on above: Order Comment: Speci men Type: BLOOD SPECIMEN Ordering Facility: [facility] Address: [address] [address] Performed By: #### 2 4323-8 #### [facility] CLIA [id number] [address] [place] [address] 62694 Platelet mean volume (Bld) [Entitic vol] 9.2 fL Normal 9.0-12.7 [facility] Comment on above: Order Comment: Speci men Type: BLOOD SPECIMEN Ordering Facility: [facility] Address: [address] [address] Performed By: #### 2 4323-8 #### [facility] CLIA [id number] [address] [place] [address] 55546 Platelets (Bld) [#/Vol] 181 10*3/uL Normal 150-400 [facility] Comment on above: Order Comment: Speci men Type: BLOOD SPECIMEN Ordering Facility: [facility] Address: [address] [address] Performed By: #### 2 4323-8 #### [facility] CLIA [id number] [address] [place] [address] RBC (Bld) [#/Vol] 3.49 10*6/uL Low 4.20-6.00 [facility] Comment on above: Order Comment: Speci men Type: BLOOD SPECIMEN Ordering Facility: [facility] Address: [address] [id number] Performed By: #### 2 4323-8 #### [facility] CLIA [id number] [address] [place] [address] 25439 WBC (Bld) [#/Vol] 3.47 10*3/uL Low 3.70-11.00 [facility] Comment on above: Order Comment: Speci men Type: BLOOD SPECIMEN Ordering Facility: [facility] Address: [address] [address] Performed By: #### 2 4323-8 #### [facility] CLIA [id number] [address] [place] [address] 45538 CNOVSPon 11-07-2022 CNOVSP Visit (SP) Office (HEMASA) MANISH ROOT ([id number]) 1945 M Date Time Provider Department 11/07/22 9:15 AM JOHN ENGLAND During your visit today, we recorded the following information about you: Temperature Pulse Respiration Blood pressure 97.5 degrees 58/minute 16/minute 129/66 Weight Height 78.1 kg 1.669 m John England MD 11/07/2022 9:56 AM Signed NAME: Manish Root NO.: [id number] DATE OF SERVICE: November 07, 2022 (Jacquelyn) Some elements in this clinic note that are critical to medical decision making have been carefully reviewed and included from a prior clinic note dated: October 31, 2022 (Gokul) Referring Provider: Dr. Татьяна Feliz Additional Clinicians involved in Manish Root's care: DIAGNOSIS: Base of Tongue squamous cell ca. 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 He has a prior history of colon cancer in 1999. July 31, 2022 - Stage : T3 N1a M0 Completed treatment and is eating better. Neutropenia resolved. PLAN: Continue seeing Dr. Feliz and Dr. Morales. RTC in 12 -13 weeks (after PET is complete) PET per Dr. Feliz Coordinate return on same date as Dr. Feliz. Labs on day return - HPI: CASE HISTORY: Reverse Chronological Order 09/03/2022 - 10/08/2022 - Cisplatin total dose 240 mg/m2 with RT 07/31/2022 examination under anesthesia/panendosco py. Findings included a friable exophytic mass left base of tongue extending into the vallecula. No other significant findings on laryngoscopy. 07/27/2022 CT neck: with contrast which demonstrated a 5 x 4.5 x 2.5 cm mass arising from the left base of tongue injecting into the hypopharynx and displacing the epiglottis posterior and inferior with narrowing of the hypopharynx. In addition a level 2 left-sided lymph node measuring 1.7 x 1.0 x 1.0 cm suspicious for metastatic disease. June 2022 - voice changed and trouble swallowing. February 2022 - started losing weight 1999 - Colon Ca Stage 3 - 2/5 LN + [place] regimen on protocol Updated Visit, November 07, 2022: Manish returns with Jahaira. Eating is much better but taste is not back. Neutropenia resolved. Updated Visit, October 31, 2022: Manish Root returns for follow-up. He still altered taste. He has no sense for sweet foods. He continues to have intermittent mouth dryness. He denies mouth sores. His weight is over all stable. He denies fevers, chills, night sweats and signs/symptoms of infection. He complains of increase in phlegm production Updated Visit, October 25, 2022: Manish Root returns for follow-up. He received Neupogen 400 mcg on 10/19/2022. He remains on Cipro prophylaxis. He denies fevers, chills, night sweats and signs/symptoms of infection. No bleeding. He has some bruising. He states that everything tastes terrible. He complains of dry mouth. He denies any difficulty swallowing. Updated Visit, October 19, 2022: Manish returns with Jahaira and is doing well. Feeling better but is neutropenic from chemotherapy. Really re-inforced education regarding neutropenia and fevers. Updated Visit, October 01, 2022: Manish Root returns for follow-up and treatment. He remains on weekly cisplatin concurrent with radiation and overall is tolerating fairly well. He has 14 radiation treatments remaining. He states that he has no taste. He does not eat and drink enough. He denies difficulty swallowing. He denies any unusual pain. He has occasional nausea and takes the prescribed antiemetics. His weight is down. He states that he has a sinus infection and gets these regularly. He is typically treated by Dr. Nelson. He is requesting an antibiotic be called into his pharmacy. He denies fevers. Overall he is doing fairly well and wishes to proceed with treatment as planned. Updated Visit, September 10, 2022: Doing well. No side effects. Noted some improvement in ability to swallow and has gained 2 lbs. Lbas safe to continue. Updated Visit, September 03, 2022: Manish returns with his Jahaira. Ready to start chemo + RT - RT started. Ready for cisplatin. Initial Visit, August 16, 2022: Manish Root presents today Hematology and Oncology evaluation. He is a 76 year old male who presents with his significant other named Jahaira. 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 - REVIEW OF SYSTEMS Per HPI and otherwise negative by full review of organ systems. - ECOG P (more content not included)... Normal [facility] Comprehensive metabolic 2000 panelon 11-07-2022 Albumin [Mass/Vol] 4.3 g/dL Normal 3.9-4.9 [facility] Comment on above: Order Comment: Speci men Type: BLOOD SPECIMEN Ordering Facility: [facility] Address: [address] [place] [address] Performed By: #### 2 4323-8 #### [facility] CLIA [id number] [address] [place] [address] 35572 ALP [Catalytic activity/Vol] 57 U/L Normal 38-113 [facility] Comment on above: Order Comment: Speci men Type: BLOOD SPECIMEN Ordering Facility: [facility] Address: [address] [address] Performed By: #### 2 4323-8 #### [facility] CLIA [id number] [address] [place] [address] 47422 ALT [Catalytic activity/Vol] 8 U/L Low 10-54 [facility] Comment on above: Order Comment: Speci men Type: BLOOD SPECIMEN Ordering Facility: [facility] Address: [address] [address] Performed By: #### 2 4323-8 #### [facility] CLIA [id number] [address] [place] [address] 87131 Anion gap [Moles/Vol] 8 mmol/L Low 9-18 [facility] Comment on above: Order Comment: Speci men Type: BLOOD SPECIMEN Ordering Facility: [facility] Address: [address] [address] Performed By: #### 2 4323-8 #### [facility] CLIA [id number] [address] [place] [address] 53034 AST [Catalytic activity/Vol] 12 U/L Low 14-40 [facility] Comment on above: Order Comment: Speci men Type: BLOOD SPECIMEN Ordering Facility: [facility] Address: [address] [address] Performed By: #### 2 4323-8 #### [facility] CLIA [id number] [address] [place] [address] 20397 Bilirubin [Mass/Vol] 0.4 mg/dL Normal 0.2-1.3 [facility] Comment on above: Order Comment: Speci men Type: BLOOD SPECIMEN Ordering Facility: [facility] Address: [address] [address] Performed By: #### 2 4323-8 #### [facility] CLIA [id number] [address] [place] [address] 33373 Calcium [Mass/Vol] 9.8 mg/dL Normal 8.5-10.2 [facility] Comment on above: Order Comment: Speci men Type: BLOOD SPECIMEN Ordering Facility: [facility] Address: [address] [address] Performed By: #### 2 4323-8 #### [facility] CLIA [id number] [address] [place] [address] 50574 Chloride [Moles/Vol] 102 mmol/L Normal 97-105 [facility] Comment on above: Order Comment: Speci men Type: BLOOD SPECIMEN Ordering Facility: [facility] Address: [address] [place] [address] Performed By: #### 2 4323-8 #### [facility] CLIA [id number] [address] [place] [address] 31074 CO2 [Moles/Vol] 29 mmol/L Normal 22-30 [facility] Comment on above: Order Comment: Speci men Type: BLOOD SPECIMEN Ordering Facility: [facility] Address: [address] [place] [address] Performed By: #### 2 4323-8 #### [facility] CLIA [id number] [address] [place] [address] 70523 Creatinine [Mass/Vol] 1.07 mg/dL Normal 0.73-1.22 [facility] Comment on above: Order Comment: Speci men Type: BLOOD SPECIMEN Ordering Facility: [facility] Address: [address] [place] [address] Performed By: #### 2 4323-8 #### [facility] CLIA [id number] [address] [place] [address] 60771 ESTIMATED GLOMERULAR FILTRATION RATE 71 mL/min/1.73m??? Normal >=60 [facility] Comment on above: Order Comment: Speci men Type: BLOOD SPECIMEN Ordering Facility: [facility] Address: [address] [place] [address] Result Comment: Felicity mated Glomerular Filtration Rate (eGFR) is calculated using the 2020 CKD-EPI creatinine equation. This equation utilizes serum creatinine, sex, and age as parameters. The creatinine assay has traceable calibration to isotope dilution-mass spectrometry. Refer to KDIGO guidelines for clinical interpretation. In patients with unstable renal function, e.g. those with acute kidney injury, the eGFR may not accurately reflect actual GFR. Performed By: #### 2 4323-8 #### [facility] CLIA [id number] [address] [place] [address] 80994 Glucose [Mass/Vol] 105 mg/dL High 74-99 [facility] Comment on above: Order Comment: Speci men Type: BLOOD SPECIMEN Ordering Facility: [facility] Address: [address] [place] [address] Result Comment: The [place] [employer] (ADA) provides guidance for cutoff values for fasting glucose and random glucose. The ADA defines fasting as no caloric intake for at least 8 hours. Fasting plasma glucose results between 100 to 125 mg/dL indicate increased risk for diabetes (prediabetes). Fasting plasma glucose results greater than or equal to 126 mg/dL meet the criteria for diagnosis of diabetes. In the absence of unequivocal hyperglycemia, results should be confirmed by repeat testing. In a patient with classic symptoms of hyperglycemia or hyperglycemic crisis, random plasma glucose results greater than or equal to 200 mg/dL meet the criteria for diagnosis of diabetes. Reference: Standards of Medical Care in Diabetes 2016, [place] [employer]. Diabetes Care. 2016.39(Suppl 1). Performed By: #### 2 4323-8 #### [facility] CLIA [id number] [address] [place] [address] 97987 Potassium [Moles/Vol] 4.6 mmol/L Normal 3.7-5.1 [facility] Comment on above: Order Comment: Speci men Type: BLOOD SPECIMEN Ordering Facility: [facility] Address: [address] [place] [address] Performed By: #### 2 4323-8 #### [facility] CLIA [id number] [address] [place] [address] 68371 Protein [Mass/Vol] 6.9 g/dL Normal 6.3-8.0 [facility] Comment on above: Order Comment: Reggiei nito Type: BLOOD SPECIMEN Ordering Facility: [facility] Address: [address] [place] [address] Performed By: #### 2 4323-8 #### [facility] CLIA [id number] [address] [place] [address] 64956 Sodium [Moles/Vol] 139 mmol/L Normal 136-144 [facility] Comment on above: Order Comment: Speci men Type: BLOOD SPECIMEN Ordering Facility: [facility] Address: [address] [place] [address] Performed By: #### 2 4323-8 #### [facility] CLIA [id number] [address] [place] [address] 68651 Urea nitrogen [Mass/Vol] 23 mg/dL Normal 9-24 [facility] Comment on above: Order Comment: Speci men Type: BLOOD SPECIMEN Ordering Facility: [facility] Address: [place] [address] Performed By: #### 2 4323-8 #### [facility] CLIA [id number] [address] [place] [address] 82969 Comprehensive metabolic 2000 panelon 10-08-2022 Albumin [Mass/Vol] 4.1 g/dL 3.9 - 4.9 g/dL [facility] ALP [Catalytic activity/Vol] 60 U/L 38 - 113 U/L [facility] ALT [Catalytic activity/Vol] 27 U/L 10 - 54 U/L [facility] Anion gap [Moles/Vol] 10 mmol/L 9 - 18 mmol/L [facility] AST [Catalytic activity/Vol] 23 U/L 14 - 40 U/L [facility] Bilirubin [Mass/Vol] 0.5 mg/dL 0.2 - 1 .3 mg/dL [facility] Calcium [Mass/Vol] 9.5 mg/dL 8.5 - 10. 2 mg/dL [facility] Chloride [Moles/Vol] 96 mmol/L Low 97 - 10 5 mmol/L [facility] CO2 [Moles/Vol] 29 mmol/L 22 - 30 mmol/L [facility] Creatinine [Mass/Vol] 0.96 mg/dL 0.73 - 1.22 mg/dL [facility] Estimated Glomerular Filtration Rate 81 mL/min/1.73m >=60 mL/min/1.73m [facility] Glucose [Mass/Vol] 105 mg/dL High 74 - 99 mg/dL [facility] Potassium [Moles/Vol] 4.2 mmol/L 3.7 - 5.1 mmol/L [facility] Protein [Mass/Vol] 6.8 g/dL 6.3 - 8.0 g/dL [facility] Sodium [Moles/Vol] 135 mmol/L Low 136 - 144 mmol/L [facility] Urea nitrogen [Mass/Vol] 22 mg/dL 9 - 24 mg/dL [facility] CBC W Auto Differential pane l (Bld)on 10-01-2022 Basophils (Bld) [#/Vol] <0.11 k/uL [facility] Basophils/100 WBC (Bld) 0.4 % [facility] Differential cell count method Nom (Bld) Auto [facility] Eosinophils (Bld) [#/Vol] 0.03 10*3/uL <0.46 k/uL [facility] Eosinophils/100 WBC (Bld) 1.3 % [facility] Erythrocyte distribution width (RBC) [Ratio] 13.2 % 11.5 - 15.0 % [facility] Hematocrit (Bld) [Volume fraction] 36.2 % Low 39.0 - 51.0 % [facility] Hemoglobin (Bld) [Mass/Vol] 12.3 g/dL Low 13.0 - 17.0 g/dL [facility] Immature granulocytes (Bld) [#/Vol] <0.10 k/uL [facility] Immature granulocytes/100 WBC (Bld) 0.4 % [facility] Lymphocytes (Bld) [#/Vol] 0.27 10*3/uL Low 1.00 - 4.00 k/uL [facility] Lymphocytes/100 WBC (Bld) 12.0 % [facility] MCH (RBC) [Entitic mass] 30.3 pg 26.0 - 34.0 pg [facility] MCHC (RBC) [Mass/Vol] 34.0 g/dL 30.5 - 36.0 g/dL [facility] MCV (RBC) [Entitic vol] 89.2 fL 80.0 - 100.0 fL [facility] Monocytes (Bld) [#/Vol] 0.23 10*3/uL <0.87 k/uL [facility] Monocytes/100 WBC (Bld) 10.2 % [facility] Neutrophils (Bld) [#/Vol] 1.70 10*3/uL 1.45 - 7.50 k/uL [facility] Neutrophils/100 WBC (Bld) 75.7 % [facility] Nucleated RBC (Bld) [#/Vol] <0.01 k/uL [facility] Nucleated RBC/100 WBC (Bld) [Ratio] 0.0 /100 WBC [facility] Platelet mean volume (Bld) [Entitic vol] 9.5 fL 9.0 - 12.7 fL [facility] Platelets (Bld) [#/Vol] 97 10*3/uL Low 150 - 400 k/uL [facility] RBC (Bld) [#/Vol] 4.06 10*6/uL Low 4.20 - 6.0 0 m/uL [facility] WBC (Bld) [#/Vol] 2.25 10*3/uL Low 3.70 - 11. 00 k/uL [facility] Comprehensive metabolic 2000 panelon 10-01-2022 Albumin [Mass/Vol] 4.2 g/dL 3.9 - 4.9 g/dL [facility] ALP [Catalytic activity/Vol] 69 U/L 38 - 113 U/L [facility] ALT [Catalytic activity/Vol] 21 U/L 10 - 54 U/L [facility] Anion gap [Moles/Vol] 11 mmol/L 9 - 18 mmol/L [facility] AST [Catalytic activity/Vol] 14 U/L 14 - 40 U/L [facility] Bilirubin [Mass/Vol] 0.6 mg/dL 0.2 - 1 .3 mg/dL [facility] Calcium [Mass/Vol] 9.7 mg/dL 8.5 - 10. 2 mg/dL [facility] Chloride [Moles/Vol] 99 mmol/L 97 - 10 5 mmol/L [facility] CO2 [Moles/Vol] 26 mmol/L 22 - 30 mmol/L [facility] Creatinine [Mass/Vol] 0.94 mg/dL 0.73 - 1.22 mg/dL [facility] Estimated Glomerular Filtration Rate 83 mL/min/1.73m >=60 mL/min/1.73m [facility] Glucose [Mass/Vol] 119 mg/dL High 74 - 99 mg/dL [facility] Potassium [Moles/Vol] 4.1 mmol/L 3.7 - 5.1 mmol/L [facility] Protein [Mass/Vol] 6.7 g/dL 6.3 - 8.0 g/dL [facility] Sodium [Moles/Vol] 136 mmol/L 136 - 144 mmol/L [facility] Urea nitrogen [Mass/Vol] 20 mg/dL 9 - 24 mg/dL [facility] CBC W Auto Differential pane l (Bld)on 09-17-2022 Basophils (Bld) [#/Vol] <0.11 k/uL [facility] Basophils/100 WBC (Bld) 0.2 % [facility] Differential cell count method Nom (Bld) Auto [facility] Eosinophils (Bld) [#/Vol] 0.04 10*3/uL <0.46 k/uL [facility] Eosinophils/100 WBC (Bld) 0.8 % [facility] Erythrocyte distribution width (RBC) [Ratio] 13.1 % 11.5 - 15.0 % [facility] Hematocrit (Bld) [Volume fraction] 39.8 % 39.0 - 51.0 % [facility] Hemoglobin (Bld) [Mass/Vol] 13.4 g/dL 13.0 - 17.0 g/dL [facility] Immature granulocytes (Bld) [#/Vol] <0.10 k/uL [facility] Immature granulocytes/100 WBC (Bld) 0.4 % [facility] Lymphocytes (Bld) [#/Vol] 0.40 10*3/uL Low 1.00 - 4.00 k/uL [facility] Lymphocytes/100 WBC (Bld) 7.8 % [facility] MCH (RBC) [Entitic mass] 30.3 pg 26.0 - 34.0 pg [facility] MCHC (RBC) [Mass/Vol] 33.7 g/dL 30.5 - 36.0 g/dL [facility] MCV (RBC) [Entitic vol] 90.0 fL 80.0 - 100.0 fL [facility] Monocytes (Bld) [#/Vol] 0.34 10*3/uL <0.87 k/uL [facility] Monocytes/100 WBC (Bld) 6.6 % [facility] Neutrophils (Bld) [#/Vol] 4.31 10*3/uL 1.45 - 7.50 k/uL [facility] Neutrophils/100 WBC (Bld) 84.2 % [facility] Nucleated RBC (Bld) [#/Vol] <0.01 k/uL [facility] Nucleated RBC/100 WBC (Bld) [Ratio] 0.0 /100 WBC [facility] Platelet mean volume (Bld) [Entitic vol] 9.4 fL 9.0 - 12.7 fL [facility] Platelets (Bld) [#/Vol] 198 10*3/uL 150 - 400 k/uL [facility] RBC (Bld) [#/Vol] 4.42 10*6/uL 4.20 - 6.0 0 m/uL [facility] WBC (Bld) [#/Vol] 5.12 10*3/uL 3.70 - 11. 00 k/uL [facility] Comprehensive metabolic 2000 panelon 09-17-2022 Albumin [Mass/Vol] 4.4 g/dL 3.9 - 4.9 g/dL [facility] ALP [Catalytic activity/Vol] 70 U/L 38 - 113 U/L [facility] ALT [Catalytic activity/Vol] 22 U/L 10 - 54 U/L [facility] Anion gap [Moles/Vol] 8 mmol/L Low 9 - 18 mmol/L [facility] AST [Catalytic activity/Vol] 15 U/L 14 - 40 U/L [facility] Bilirubin [Mass/Vol] 0.4 mg/dL 0.2 - 1 .3 mg/dL [facility] Calcium [Mass/Vol] 9.8 mg/dL 8.5 - 10. 2 mg/dL [facility] Chloride [Moles/Vol] 99 mmol/L 97 - 10 5 mmol/L [facility] CO2 [Moles/Vol] 28 mmol/L 22 - 30 mmol/L [facility] Creatinine [Mass/Vol] 0.83 mg/dL 0.73 - 1.22 mg/dL [facility] Estimated Glomerular Filtration Rate 90 mL/min/1.73m >=60 mL/min/1.73m [facility] Glucose [Mass/Vol] 125 mg/dL High 74 - 99 mg/dL [facility] Potassium [Moles/Vol] 4.1 mmol/L 3.7 - 5.1 mmol/L [facility] Protein [Mass/Vol] 6.8 g/dL 6.3 - 8.0 g/dL [facility] Sodium [Moles/Vol] 135 mmol/L Low 136 - 144 mmol/L [facility] Urea nitrogen [Mass/Vol] 28 mg/dL High 9 - 24 mg/dL [facility] CBC W Auto Differential pane l (Bld)on 08-23-2022 Basophils (Bld) [#/Vol] 0.05 10*3/uL <0.11 k/uL [facility] Basophils/100 WBC (Bld) 0.8 % [facility] Differential cell count method Nom (Bld) Auto [facility] Eosinophils (Bld) [#/Vol] 0.05 10*3/uL <0.46 k/uL [facility] Eosinophils/100 WBC (Bld) 0.8 % [facility] Erythrocyte distribution width (RBC) [Ratio] 13.2 % 11.5 - 15.0 % [facility] Hematocrit (Bld) [Volume fraction] 43.8 % 39.0 - 51.0 % [facility] Hemoglobin (Bld) [Mass/Vol] 14.7 g/dL 13.0 - 17.0 g/dL [facility] Immature granulocytes (Bld) [#/Vol] <0.10 k/uL [facility] Immature granulocytes/100 WBC (Bld) 0.3 % [facility] Lymphocytes (Bld) [#/Vol] 1.55 10*3/uL 1.00 - 4.00 k/uL [facility] Lymphocytes/100 WBC (Bld) 25.7 % [facility] MCH (RBC) [Entitic mass] 30.6 pg 26.0 - 34.0 pg [facility] MCHC (RBC) [Mass/Vol] 33.6 g/dL 30.5 - 36.0 g/dL [facility] MCV (RBC) [Entitic vol] 91.3 fL 80.0 - 100.0 fL [facility] Monocytes (Bld) [#/Vol] 0.51 10*3/uL <0.87 k/uL [facility] Monocytes/100 WBC (Bld) 8.5 % [facility] Neutrophils (Bld) [#/Vol] 3.85 10*3/uL 1.45 - 7.50 k/uL [facility] Neutrophils/100 WBC (Bld) 63.9 % [facility] Nucleated RBC (Bld) [#/Vol] <0.01 k/uL [facility] Nucleated RBC/100 WBC (Bld) [Ratio] 0.0 /100 WBC [facility] Platelet mean volume (Bld) [Entitic vol] 9.4 fL 9.0 - 12.7 fL [facility] Platelets (Bld) [#/Vol] 340 10*3/uL 150 - 400 k/uL [facility] RBC (Bld) [#/Vol] 4.80 10*6/uL 4.20 - 6.0 0 m/uL [facility] WBC (Bld) [#/Vol] 6.03 10*3/uL 3.70 - 11. 00 k/uL [facility] Comprehensive metabolic 2000 panelon 08-23-2022 Albumin [Mass/Vol] 4.6 g/dL 3.9 - 4.9 g/dL [facility] ALP [Catalytic activity/Vol] 66 U/L 38 - 113 U/L [facility] ALT [Catalytic activity/Vol] 16 U/L 10 - 54 U/L [facility] Anion gap [Moles/Vol] 8 mmol/L Low 9 - 18 mmol/L [facility] AST [Catalytic activity/Vol] 19 U/L 14 - 40 U/L [facility] Bilirubin [Mass/Vol] 0.5 mg/dL 0.2 - 1 .3 mg/dL [facility] Calcium [Mass/Vol] 10.0 mg/dL 8.5 - 10. 2 mg/dL [facility] Chloride [Moles/Vol] 102 mmol/L 97 - 10 5 mmol/L [facility] CO2 [Moles/Vol] 30 mmol/L 22 - 30 mmol/L [facility] Creatinine [Mass/Vol] 0.97 mg/dL 0.73 - 1.22 mg/dL [facility] Estimated Glomerular Filtration Rate 80 mL/min/1.73m >=60 mL/min/1.73m [facility] Glucose [Mass/Vol] 101 mg/dL High 74 - 99 mg/dL [facility] Potassium [Moles/Vol] 4.5 mmol/L 3.7 - 5.1 mmol/L [facility] Protein [Mass/Vol] 7.5 g/dL 6.3 - 8.0 g/dL [facility] Sodium [Moles/Vol] 140 mmol/L 136 - 144 mmol/L [facility] Urea nitrogen [Mass/Vol] 18 mg/dL 9 - 24 mg/dL [facility] POINT OF CARE GLUCOSEon 07-09 Glucose [Mass/Vol] 149 mg/dL Critically high 74-106 [facility] Comment on above: Performed By: #### P OCGLUC #### [facility] [address] [address] [address] 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 Correction, due 07/18/2025. Normal [facility] CBC AUTO DIFFon 07-27-2022 BASO # 0.0 103/ul Normal 0.0-0.1 [facility] Comment on above: Performed By: #### C BC #### [facility] [address] [address] [address] Mikayla Galan Basophils/100 WBC (Bld) 0.4 % Normal 0.2-2.0 [facility] Comment on above: Performed By: #### C BC #### [facility] [address] [address] [address] Mikayla Galan EO # 0.1 103/ul Normal 0.0-0.7 [facility] Comment on above: Performed By: #### C BC #### [facility] [address] [place] [address] Dr. Mikayla Galan Eosinophils/100 WBC (Bld) 1.5 % Normal 0.9-7.0 [facility] Comment on above: Performed By: #### C BC #### [facility] [address] [place] [address] Dr. Mikayla Galan Erythrocyte distribution width (RBC) [Ratio] 13.2 % Normal 11.0-15.0 [facility] Comment on above: Performed By: #### C BC #### [facility] [address] [place] [address] Dr. Mikayla Galan Hematocrit (Bld) [Volume fraction] 41.7 % Critically low 42.0-54.0 [facility] Comment on above: Performed By: #### C BC #### [facility] [address] [place] [address] Dr. Mikayla Galan Hemoglobin (Bld) [Mass/Vol] 13.9 g/dL Critically low 14.0-18.0 [facility] Comment on above: Performed By: #### C BC #### [facility] [address] [address] [address] Mikayla Galan IG # 0.02 10e3/ul Normal 0.00-0.03 [facility] Comment on above: Performed By: #### C BC #### [facility] [address] [address] [address] Mikayla Galan IG % 0.4 % Normal 0.0-0.5 [facility] Comment on above: Performed By: #### C BC #### [facility] [address] [place] [address] Dr. Mikayla Galan LYMPH # 1.1 103/ul Critically low 1.2-3.8 [facility] Comment on above: Performed By: #### C BC #### [facility] [address] [place] [address] Dr. Mikayla Galan Lymphocytes/100 WBC (Bld) 24.7 % Normal 20.5-60.0 [facility] Comment on above: Performed By: #### C BC #### [facility] [address] [place] [address] Dr. Mikayla Galan MANUAL DIFF REQ NO Normal [facility] Comment on above: Performed By: #### C BC #### [facility] [address] [place] [address] Dr. Mikayla Galan MCH (RBC) [Entitic mass] 30.5 pg Normal 25.9-34.0 [facility] Comment on above: Performed By: #### C BC #### [facility] [address] [place] [address] Dr. Mikayla Galan MCHC (RBC) [Mass/Vol] 33.3 g/dL Normal 29.9-35.2 [facility] Comment on above: Performed By: #### C BC #### [facility] [address] [place] [address] Dr. Mikayla Galan MCV (RBC) [Entitic vol] 91.4 fL Normal 80.0-94.0 [facility] Comment on above: Performed By: #### C BC #### [facility] [address] [place] [address] Dr. Mikayla Galan MONO # 0.4 103/ul Normal 0.3-0.8 [facility] Comment on above: Performed By: #### C BC #### [facility] [address] [place] [address] Dr. Mikayla Galan Monocytes/100 WBC (Bld) 8.4 % Normal 1.7-12.0 [facility] Comment on above: Performed By: #### C BC #### [facility] [address] [place] [address] Dr. Mikayla Galan NEUT # 2.9 103/ul Normal 1.4-6.5 [facility] Comment on above: Performed By: #### C BC #### [facility] [address] [place] [address] Dr. Mikayla Galan Neutrophils/100 WBC (Bld) 64.6 % Normal 43.0-75.0 [facility] Comment on above: Performed By: #### C BC #### [facility] [address] [place] [address] Dr. Mikayla Galan Platelet mean volume (Bld) [Entitic vol] 9.5 fL Normal 9.5-13.5 [facility] Comment on above: Performed By: #### C BC #### [facility] [address] [place] [address] Dr. Mikayla Galan PLT 293 103/ul Normal 150-450 [facility] Comment on above: Performed By: #### C BC #### [facility] [address] [place] [address] Dr. Mikayla Galan RBC 4.56 106/ul Critically low 4.70-6.10 [facility] Comment on above: Performed By: #### C BC #### [facility] [address] [place] [address] Dr. Mikayla Galan WBC 4.5 103/ul Normal 4.0-11.0 [facility] Comment on above: Performed By: #### C BC #### [facility] [address] [place] [address] [facility]ECK [facility] W CONon [address] W CON EXAMINATION: CT NECK ST W CON HISTORY: Tongue carcinoma follow-up COMPARISON: CTA head and neck 10/20/2018 TECHNIQUE: Axial, Coronal, and Sagittal CT images created with IV contrast. Dose reduction techniques were achieved by using automated exposure control and/or adjustment of mA and/or kV according to patient size and/or use of iterative reconstruction technique. FINDINGS: NASOPHARYNX: No asymmetry of the fossae of Rosenmuller and torus tubarius. ORAL CAVITY: No visible mass. OROPHARYNX: No asymmetry of the facial and lingual tonsils. HYPOPHARYNX: Lobular, enhancing 5.0 x 4.5 x 2.5 cm mass arising from the base of tongue projecting into the hypopharynx and displacing the epiglottis posterior and inferior. Moderate-marked narrowing of the hypopharynx. LARYNX: No mass or asymmetry of the vocal cords. SINUSES: No significant fluid or mucosal thickening. NECK GLADS: No visible abnormality of the parotid, submandibular, and thyroid glands. LYMPH NODES: Single hypodense level 2 lymph node on left, 1.7 x 1.0 x 1.0 cm; suspicious for metastatic disease. VASCULATURE: No suspicious abnormality. BONES: No bone lesion. Marked degenerative disc disease C3-C4 through C6-C7. OTHER: No additional imaging findings. IMPRESSION: 1. Large mass arising from base of tongue causing marked narrowing of the hypopharynx. This was not present on the 10/20/2018 study. No recent comparison studies or reports. 2. Abnormal lymph node on left, level 2; while not significantly enlarged is suspicious for metastatic disease. Electronically authenticated by: CHAU JUNG Date: 2022-07-27 13:04 Normal [facility] Covid-19 PCR (CVDTBH)on 07-09 SARS-CoV-2 (COVID-19) RNA IRIS+probe Ql (Unsp spec) Not detected Normal NOT DETECTED [facility] Comment on above: Result Comment: This test is not yet approved or cleared by the [place] FDA. When there are no FDA-approved or cleared tests available, and other criteria are met, FDA can make tests available under an emergency access mechanism called an Emergency Use Authorization (EUA). The EUA for this test is supported by the [facility] of Health and Human Service's (HHS's) declaration that circumstances exist to justify the emergency use of in vitro diagnostics for the detection and/or diagnosis of the virus that causes COVID-19. This EUA will remain in effect (meaning this test can be used) for the duration of the COVID-19 declaration justifying emergency of IVDs, unless it is terminated or revoked by FDA (after which the test may no longer be used). When diagnostic testing is negative, the possibility of a false negative should be considered in the context of a patient's recent exposures and the presence of clinical signs and symptoms consistent with SARS-CoV-2. Performed By: #### P OCGLUC #### [facility] [address] [place] [address] Dr. Mikayla Galan PROF CHEM 8 (BAS METB)on Anion gap [Moles/Vol] 10.2 mmol/L Normal [facility] Comment on above: Performed By: #### B MP #### [facility] [address] [place] [address] Dr. Mikayla Galan Calcium [Mass/Vol] 9.2 mg/dL Normal 8.5-10.1 [facility] Comment on above: Performed By: #### B MP #### [facility] [address] [place] [address] Dr. Mikayla Galan Chloride [Moles/Vol] 103 mmol/L Normal 98-107 [facility] Comment on above: Performed By: #### B MP #### [facility] [address] [place] [address] Dr. Mikayla Galan CO2 [Moles/Vol] 31.3 mmol/L Normal 21.0-32.0 [facility] Comment on above: Performed By: #### B MP #### [facility] [address] [place] [address] Dr. Mikayla Galan Creatinine [Mass/Vol] 0.98 mg/dL Normal 0.70-1.30 [facility] Comment on above: Performed By: #### B MP #### [facility] [address] [place] [address] Dr. Mikayla Galan EGFR-AF KITTITIAN >60 Normal >=60 [facility] Comment on above: Performed By: #### B MP #### [facility] [address] [address] [address] Mikayla Galan EGFR-NON AF KITTITIAN >60 Normal >=60 [facility] Comment on above: Performed By: #### B MP #### [facility] [address] [address] [address] Mikayla Galan Glucose [Mass/Vol] 133 mg/dL Critically high 74-106 [facility] Comment on above: Performed By: #### B MP #### [facility] [address] [address] [address] Mikayla Galan Potassium [Moles/Vol] 4.5 mmol/L Normal 3.5-5.1 [facility] Comment on above: Performed By: #### B MP #### [facility] [address] [address] [address] Mikayla Galan Sodium [Moles/Vol] 140 mmol/L Normal 136-145 [facility] Comment on above: Performed By: #### B MP #### [facility] [address] [address] [address] Mikayla Galan Urea nitrogen [Mass/Vol] 21.0 mg/dL Critically high 7.0-18.0 [facility] Comment on above: Performed By: #### B MP #### [facility] [address] [address] [address] Mikayla Galan Urea nitrogen/Creatinine [Mass ratio] 21.4 mg/mg Normal [facility] Comment on above: Performed By: #### B MP #### [facility] [address] [address] [address] Mikayla Galan PROTIMEon 07-27-2022 INR Coag (PPP) [Relative time] 1.04 {INR} Normal [facility] Comment on above: Performed By: #### P T, PTT #### [facility] [address] [address] [address] Mikayla Galan INR GUIDELINES SEE BELOW Normal [facility] Comment on above: Result Comment: VANESSA RED INR: 2.0 - 3.0 CONDITIONS NOT LISTED BELOW 2.5 - 3.5 FOR PROSTHETIC HEART VALVE REPLACEMENT 2.5 - 3.5 RECURRENT THROMBOSIS Performed By: #### P T, PTT #### [facility] [address] [place] [address] Dr. Mikayla Galan PT Coag (PPP) [Time] 11.0 s Normal 9.0-11.6 [facility] Comment on above: Performed By: #### P T, PTT #### [facility] [address] [address] [address] Mikayla Galan PTTon 07-27-2022 aPTT Coag (Bld) [Time] 28.6 s Normal 22.3-36.2 [facility] Comment on above: Performed By: #### P OCGLUC #### [facility] [address] [place] [address] Dr. Mikayla Galan Pathology Noteon 07-20-2022 Pathology Note [id number] .[id number]:127 Normal [facility] Outside Colonoscopyon 2022 Outside Colonoscopy [id number] .[id number]:127 Normal [facility] POINT OF CARE GLUCOSEon 07-08 Glucose [Mass/Vol] 94 mg/dL Normal 74-106 [facility] Comment on above: Performed By: #### P OCGLUC #### [facility] [address] [place] [address] Dr. Mikayla Galan Lab Reportson 07-12-2022 Lab Reports [id number] .[id number]:127 Normal [facility] Covid-19 PCR (CVDTBH)on SARS-CoV-2 (COVID-19) RNA IRIS+probe Ql (Unsp spec) Not detected Normal NOT DETECTED [facility] Comment on above: Result Comment: This test is not yet approved or cleared by the [place] FDA. When there are no FDA-approved or cleared tests available, and other criteria are met, FDA can make tests available under an emergency access mechanism called an Emergency Use Authorization (EUA). The EUA for this test is supported by the [place] of Health and Human Service's (HHS's) declaration that circumstances exist to justify the emergency use of in vitro diagnostics for the detection and/or diagnosis of the virus that causes COVID-19. This EUA will remain in effect (meaning this test can be used) for the duration of the COVID-19 declaration justifying emergency of IVDs, unless it is terminated or revoked by FDA (after which the test may no longer be used). When diagnostic testing is negative, the possibility of a false negative should be considered in the context of a patient's recent exposures and the presence of clinical signs and symptoms consistent with SARS-CoV-2. Performed By: #### P OCGLUC #### [facility] [address] [place] [address] Dr. Mikayla Galan Consent for Procedure/Surger yon 06-15-2022 Consent for Procedure/Surgery [id number] .[id number]:127 Normal [facility] US THYROIDon 06-11-2022 US THYROID EXAMINATION: US THYROID HISTORY: Goiter COMPARISON: No relevant comparison available. TECHNIQUE: Sonographic images of the thyroid gland were obtained. FINDINGS: The right thyroid lobe is normal in size, contour and homogeneous echotexture measuring 4.2 x 1.7 x 2.0 cm. No focal nodule The thyroid isthmus measures 3 mm, no focal nodule The left thyroid lobe is normal in size, contour and homogeneous echotexture measuring 3.5 x 1.7 x 1.6 cm. No focal nodule IMPRESSION: Normal exam Electronically authenticated by: QUANG JOHNSON Date: 2022-06-11 07:17 Normal [facility] Provider Letteron 05-15-2022 Provider Letter May 15, 2022 [facility] [address] [address] [place] [id number] MANISH ROOT 1945 Dear Mansih , We have been trying to reach you with no success. It is important that you return our call regarding your referral from Dr. Nelson upon receiving this letter. Also, at the time of your call, please provide us with your current information. Thank you for your prompt attention to this matter. Sincerely, General Surgery [phone] Normal [facility] CBC AUTO DIFFon 02-27-2022 BASO # 0.0 103/ul Normal 0.0-0.1 [facility] Comment on above: Performed By: #### C BC #### [facility] [address] [address] [address] Mikayla Galan Basophils/100 WBC (Bld) 0.6 % Normal 0.2-2.0 [facility] Comment on above: Performed By: #### C BC #### [facility] [address] [address] [address] Mikayla Galan EO # 0.1 103/ul Normal 0.0-0.7 [facility] Comment on above: Performed By: #### C BC #### [facility] [address] [address] [address] Mikayla Galan Eosinophils/100 WBC (Bld) 1.4 % Normal 0.9-7.0 [facility] Comment on above: Performed By: #### C BC #### [facility] [address] [address] [address] Mikayla Galan Erythrocyte distribution width (RBC) [Ratio] 12.6 % Normal 11.0-15.0 [facility] Comment on above: Performed By: #### C BC #### [facility] [address] [address] [address] Mikayla Galan Hematocrit (Bld) [Volume fraction] 41.8 % Critically low 42.0-54.0 [facility] Comment on above: Performed By: #### C BC #### [facility] [address] [address] [address] Mikayla Galan Hemoglobin (Bld) [Mass/Vol] 13.9 g/dL Critically low 14.0-18.0 [facility] Comment on above: Performed By: #### C BC #### [facility] [address] [address] [address] Mikayla Galan IG # 0.03 10e3/ul Normal 0.00-0.03 [facility] Comment on above: Performed By: #### C BC #### [facility] [address] [address] [address] Mikayla Galan IG % 0.6 % Critically high 0.0-0.5 [facility] Comment on above: Performed By: #### C BC #### [facility] [address] [place] [address] Dr. Mikayla Galan LYMPH # 1.0 103/ul Critically low 1.2-3.8 [facility] Comment on above: Performed By: #### C BC #### [facility] [address] [place] [address] Dr. Mikayla Galan Lymphocytes/100 WBC (Bld) 19.9 % Critically low 20.5-60.0 [facility] Comment on above: Performed By: #### C BC #### [facility] [address] [place] [address] Dr. Mikayla Galan MANUAL DIFF REQ NO Normal [facility] Comment on above: Performed By: #### C BC #### [facility] [address] [place] [address] Dr. Mikayla Galan MCH (RBC) [Entitic mass] 31.0 pg Normal 25.9-34.0 [facility] Comment on above: Performed By: #### C BC #### [facility] [address] [place] [address] Dr. Mikayla Galan MCHC (RBC) [Mass/Vol] 33.3 g/dL Normal 29.9-35.2 [facility] Comment on above: Performed By: #### C BC #### [facility] [address] [place] [address] Dr. Mikayla Galan MCV (RBC) [Entitic vol] 93.3 fL Normal 80.0-94.0 [facility] Comment on above: Performed By: #### C BC #### [facility] [address] [place] [address] Dr. Mikayla Galan MONO # 0.5 103/ul Normal 0.3-0.8 [facility] Comment on above: Performed By: #### C BC #### [facility] [address] [address] [address] Mikayla Galan Monocytes/100 WBC (Bld) 8.9 % Normal 1.7-12.0 [facility] Comment on above: Performed By: #### C BC #### [facility] [address] [address] [address] Mikayla Galan NEUT # 3.5 103/ul Normal 1.4-6.5 [facility] Comment on above: Performed By: #### C BC #### [facility] [address] [address] [address] Mikayla Galan Neutrophils/100 WBC (Bld) 68.6 % Normal 43.0-75.0 [facility] Comment on above: Performed By: #### C BC #### [facility] [address] [place] [address] Dr. Mikayla Galan Platelet mean volume (Bld) [Entitic vol] 9.6 fL Normal 9.5-13.5 [facility] Comment on above: Performed By: #### C BC #### [facility] [address] [place] [address] Dr. Mikayla Galan PLT 280 103/ul Normal 150-450 [facility] Comment on above: Performed By: #### C BC #### [facility] [address] [place] [address] Dr. Mikayla Galan RBC 4.48 106/ul Critically low 4.70-6.10 [facility] Comment on above: Performed By: #### C BC #### [facility] [address] [place] [address] Dr. Mikayla Galan WBC 5.1 103/ul Normal 4.0-11.0 [facility] Comment on above: Performed By: #### C BC #### [facility] [address] [place] [address] Dr. Mikayla Galan GLYCOHEMOGLOBIN A1Con 2021 ADA RECOMMENDATION SEE BELOW Normal [facility] Comment on above: Result Comment: ADA RECOMMENDED LIMIT 4.0 - 6.0 ADA THERAPEUTIC TARGET < 7.0 ACTION SUGGESTED > 7.0 Performed By: #### A 1C #### [facility] [address] [place] [address] Dr. Mikayla Galan Glucose [Mass/Vol] 183 mg/dL Normal [facility] Comment on above: Performed By: #### A 1C #### [facility] [address] [place] [address] Dr. Mikayla Galan HbA1c (Bld) [Mass fraction] 8.0 % Critically high 4.5-6.2 [facility] Comment on above: Performed By: #### A 1C #### [facility] [address] [place] [address] Dr. Mikayla Galan PROF 14(COMP METB)on 022 Albumin [Mass/Vol] 3.8 g/dL Normal 3.4-5.0 [facility] Comment on above: Performed By: #### C MP #### [facility] [address] [place] [address] Dr. Mikayla Galan Albumin/Globulin [Mass ratio] 1.2 {ratio} Normal [facility] Comment on above: Performed By: #### C MP #### [facility] [address] [place] [address] Dr. Mikayla Galan ALP [Catalytic activity/Vol] 111 U/L Normal 46-116 [facility] Comment on above: Performed By: #### C MP #### [facility] [address] [place] [address] Dr. Mikayla Galan ALT [Catalytic activity/Vol] 50 U/L Normal 16-63 [facility] Comment on above: Performed By: #### C MP #### [facility] [address] [place] [address] Dr. Mikayla Galan Anion gap [Moles/Vol] 11.5 mmol/L Normal [facility] Comment on above: Performed By: #### C MP #### [facility] [address] [place] [address] Dr. Mikayla Galan AST [Catalytic activity/Vol] 27 U/L Normal 15-37 [facility] Comment on above: Performed By: #### C MP #### [facility] [address] [address] [address] Mikayla Galan Bilirubin [Mass/Vol] 0.5 mg/dL Normal 0.2-1.0 [facility] Comment on above: Performed By: #### C MP #### [facility] [address] [address] [address] Mikayla Galan Calcium [Mass/Vol] 9.0 mg/dL Normal 8.5-10.1 [facility] Comment on above: Performed By: #### C MP #### [facility] [address] [address] [address] Mikayla Galan Chloride [Moles/Vol] 101 mmol/L Normal 98-107 [facility] Comment on above: Performed By: #### C MP #### [facility] [address] [place] [address] Dr. Mikayla Galan CO2 [Moles/Vol] 27.7 mmol/L Normal 21.0-32.[address] [facility] Comment on above: Performed By: #### C MP #### [facility] [address] [place] [address] Dr. Mikayla Galan Creatinine [Mass/Vol] 1.17 mg/dL Normal 0.70-1.30 [facility] Comment on above: Performed By: #### C MP #### [facility] [address] [place] [address] Dr. Mikayla Galan EGFR-AF [place]ITT[place]IAN >60 Normal >=60 [facility] Comment on above: Performed By: #### C MP #### [facility] [address] [place] [address] Dr. Mikayla Galan EGFR-NON AF KITT[place]IAN =60 Normal >=60 [facility] Comment on above: Performed By: #### C MP #### [facility] [address] [place] [address] Dr. Mikayla Galan Globulin (S) [Mass/Vol] 3.3 g/dL Normal [facility] Comment on above: Performed By: #### C MP #### [facility] [address] [place] [address] Dr. Mikayla Galan Glucose [Mass/Vol] 233 mg/dL Critically high 74-106 [facility] Comment on above: Performed By: #### C MP #### [facility] [address] [address] [address] Mikayla Galan Potassium [Moles/Vol] 4.2 mmol/L Normal 3.5-5.1 [facility] Comment on above: Performed By: #### C MP #### [facility] [address] [address] [address] Mikayla Galan Protein [Mass/Vol] 7.1 g/dL Normal 6.4-8.2 [facility] Comment on above: Performed By: #### C MP #### [facility] [address] [place] [address] Dr. Mikayla Galan Sodium [Moles/Vol] 136 mmol/L Normal 136-145 [facility] Comment on above: Performed By: #### C MP #### [facility] [address] [address] [address] Mikayla Galan Urea nitrogen [Mass/Vol] 15.0 mg/dL Normal 7.0-18.0 [facility] Comment on above: Performed By: #### C MP #### [facility] [address] [place] [address] Dr. Mikayla Galan Urea nitrogen/Creatinine [Mass ratio] 12.8 mg/mg Normal [facility] Comment on above: Performed By: #### C MP #### [facility] [address] [place] [address] Dr. Mikayla Galan Physician Referralon 022 Physician Referral [id number]:127 Normal [facility] Vital Signs Date Time Vital Sign Value Performing Clinician Facility 11-06-2023 09:51-0400 Body mass index (BMI) [Ratio] 31.73 kg/m2 BARRON Feliz MD Work Phone: [facility] 11-06-2023 09:51-0400 Body temperature 97.11 [degF] BARRON Feliz MD Work Phone: [facility] 11-06-2023 09:51-0400 Body weight 88.4 kg BARRON Feliz MD Work Phone: [facility] 11-06-2023 09:51-0400 Diastolic blood pressure 77 mm[Hg] BARRON Feliz MD Work Phone: [facility] 11-06-2023 09:51-0400 Heart rate 58 /min BARRON Feliz MD Work Phone: [facility] 11-06-2023 09:51-0400 Respiratory rate 16 /min BARRON Feliz MD Work Phone: [facility] 11-06-2023 09:51-0400 SaO2% (BldA) [Mass fraction] 99 % BARRON Feliz MD Work Phone: [facility] 11-06-2023 09:51-0400 Systolic blood pressure 163 mm[Hg] BARRON Feliz MD Work Phone: [facility] 10-23-2023 10:56-0400 Body height 166.9 cm John England MD Work Phone: [facility] 10-23-2023 10:56-0400 Body temperature 97.81 [degF] John England MD Work Phone: [facility] 10-23-2023 10:56-0400 Body weight 87.5 kg John England MD Work Phone: [facility] 10-23-2023 10:56-0400 Diastolic blood pressure 70 mm[Hg] John England MD Work Phone: [facility] 10-23-2023 10:56-0400 Heart rate 54 /min John England MD Work Phone: [facility] 10-23-2023 10:56-0400 Respiratory rate 16 /min John England MD Work Phone: [facility] 10-23-2023 10:56-0400 SaO2% (BldA) [Mass fraction] 98 % John England MD Work Phone: [facility] 10-23-2023 10:56-0400 Systolic blood pressure 144 mm[Hg] John England MD Work Phone: [facility] 05-08-2023 11:14-0400 Body temperature 97.11 [degF] BARRON Feliz MD Work Phone: [facility] 05-08-2023 11:14-0400 Body weight 80.2 kg BARRON Feliz MD Work Phone: [facility] 05-08-2023 11:14-0400 Diastolic blood pressure 104 mm[Hg] BARRON Feliz MD Work Phone: [facility] 05-08-2023 11:14-0400 Heart rate 58 /min BARRON Feliz MD Work Phone: [facility] 05-08-2023 11:14-0400 Respiratory rate 16 /min BARRON Feliz MD Work Phone: [facility] 05-08-2023 11:14-0400 SaO2% (BldA) [Mass fraction] 98 % BARRON Feliz MD Work Phone: [facility] 05-08-2023 11:14-0400 Systolic blood pressure 168 mm[Hg] BARRON Feliz MD Work Phone: [facility] 03-20-2023 12:55-0400 Body height 166.9 cm John England MD Work Phone: [facility] 03-20-2023 12:55-0400 Body temperature 97.9 [degF] John England MD Work Phone: [facility] 03-20-2023 12:55-0400 Body weight 79.92 kg John England MD Work Phone: [facility] 03-20-2023 12:55-0400 Diastolic blood pressure 65 mm[Hg] John England MD Work Phone: [facility] 03-20-2023 12:55-0400 Heart rate 59 /min John England MD Work Phone: [facility] 03-20-2023 12:55-0400 Respiratory rate 16 /min John England MD Work Phone: [facility] 03-20-2023 12:55-0400 SaO2% (BldA) [Mass fraction] 98 % John England MD Work Phone: [facility] 03-20-2023 12:55-0400 Systolic blood pressure 139 mm[Hg] John England MD Work Phone: [facility] 02-06-2023 11:59-0400 Body temperature 97.3 [degF] BARRON Feliz MD Work Phone: [facility] 02-06-2023 11:59-0400 Body weight 80.74 kg BARRON Feliz MD Work Phone: [facility] 02-06-2023 11:59-0400 Diastolic blood pressure 67 mm[Hg] BARRON Feliz MD Work Phone: [facility] 02-06-2023 11:59-0400 Heart rate 56 /min BARRON Feliz MD Work Phone: [facility] 02-06-2023 11:59-0400 Respiratory rate 16 /min BARRON Feliz MD Work Phone: [facility] 02-06-2023 11:59-0400 Systolic blood pressure 142 mm[Hg] BARRON Feliz MD Work Phone: [facility] 02-06-2023 11:29-0400 Body height 166.9 cm John England MD Work Phone: [facility] 02-06-2023 11:29-0400 Body temperature 97.3 [degF] John England MD Work Phone: [facility] 02-06-2023 11:29-0400 Body weight 80.92 kg John England MD Work Phone: [facility] 02-06-2023 11:29-0400 Diastolic blood pressure 67 mm[Hg] John England MD Work Phone: [facility] 02-06-2023 11:29-0400 Heart rate 56 /min John England MD Work Phone: [facility] 02-06-2023 11:29-0400 Respiratory rate 16 /min John England MD Work Phone: [facility] 02-06-2023 11:29-0400 SaO2% (BldA) [Mass fraction] 98 % John England MD Work Phone: [facility] 02-06-2023 11:29-0400 Systolic blood pressure 142 mm[Hg] John England MD Work Phone: [facility] 11-28-2022 14:37-0400 Body temperature 96.69 [degF] BARRON Feliz MD Work Phone: [facility] 11-28-2022 14:37-0400 Body weight 78.47 kg BARRON Feliz MD Work Phone: [facility] 11-28-2022 14:37-0400 Diastolic blood pressure 69 mm[Hg] BARRON Feliz MD Work Phone: [facility] 11-28-2022 14:37-0400 Heart rate 66 /min BARRON Feliz MD Work Phone: [facility] 11-28-2022 14:37-0400 Respiratory rate 18 /min BARRON Feliz MD Work Phone: [facility] 11-28-2022 14:37-0400 SaO2% (BldA) [Mass fraction] 97 % BARRON Feliz MD Work Phone: [facility] 11-28-2022 14:37-0400 Systolic blood pressure 165 mm[Hg] BARRON Feliz MD Work Phone: [facility] 11-07-2022 09:21-0400 Body height 166.9 cm John England MD Work Phone: [facility] 11-07-2022 09:21-0400 Body temperature 97.5 [degF] John England MD Work Phone: [facility] 11-07-2022 09:21-0400 Body weight 78.11 kg John England MD Work Phone: [facility] 11-07-2022 09:21-0400 Diastolic blood pressure 66 mm[Hg] John England MD Work Phone: [facility] 11-07-2022 09:21-0400 Heart rate 58 /min John England MD Work Phone: [facility] 11-07-2022 09:21-0400 Respiratory rate 16 /min John England MD Work Phone: [facility] 11-07-2022 09:21-0400 SaO2% (BldA) [Mass fraction] 100 % John England MD Work Phone: [facility] 11-07-2022 09:21-0400 Systolic blood pressure 129 mm[Hg] John England MD Work Phone: [facility] 10-31-2022 14:05-0400 Body height 166.9 cm Maryam Hodgson APRN.RENTAL AGENT Work Phone: [facility] 10-31-2022 14:05-0400 Body temperature 97.5 [degF] Maryam Hodgson APRN.RENTAL AGENT Work Phone: [facility] 10-31-2022 14:05-0400 Body weight 78.2 kg Maryam Hodgson APRN.RENTAL AGENT Work Phone: [facility] 10-31-2022 14:05-0400 Diastolic blood pressure 58 mm[Hg] Maryam Hodgson APRN.RENTAL AGENT Work Phone: [facility] 10-31-2022 14:05-0400 Heart rate 67 /min Maryam Hodgson APRN.RENTAL AGENT Work Phone: [facility] 10-31-2022 14:05-0400 Respiratory rate 16 /min Maryam Hodgosn APRN.RENTAL AGENT Work Phone: [facility] 10-31-2022 14:05-0400 SaO2% (BldA) [Mass fraction] 98 % Maryam Hodgson FRONT END SOFTWARE ENGINEER.RENTAL AGENT Work Phone: [facility] 10-31-2022 14:05-0400 Systolic blood pressure 120 mm[Hg] Maryam Hodgson FRONT END SOFTWARE ENGINEER.RENTAL AGENT Work Phone: [facility] 10-25-2022 09:51-0400 Body height 166.9 cm Maryam Hodgson APRN.RENTAL AGENT Work Phone: [facility] 10-25-2022 09:51-0400 Body temperature 97 [degF] Maryam Hodgson APRN.RENTAL AGENT Work Phone: [facility] 10-25-2022 09:51-0400 Body weight 79.29 kg Maryam Hodgson APRN.RENTAL AGENT Work Phone: [facility] 10-25-2022 09:51-0400 Diastolic blood pressure 64 mm[Hg] Maryam Hodgson APRN.RENTAL AGENT Work Phone: [facility] 10-25-2022 09:51-0400 Heart rate 63 /min Maryam Hodgson APRN.RENTAL AGENT Work Phone: [facility] 10-25-2022 09:51-0400 Respiratory rate 16 /min Maryam Hodgson APRN.RENTAL AGENT Work Phone: [facility] 10-25-2022 09:51-0400 SaO2% (BldA) [Mass fraction] 99 % Maryam Hodgson APRN.RENTAL AGENT Work Phone: [facility] 04-20-2023 09:51-0400 Systolic blood pressure 135 mm[Hg] Maryam Hodgson APRN.CNP Work Phone: [facility] 10-19-2022 09:21-0400 Body height 166.9 cm John England MD Work Phone: [facility] 10-19-2022 09:21-0400 Body temperature 97.11 [degF] John England MD Work Phone: [facility] 10-19-2022 09:21-0400 Body weight 78.74 kg John England MD Work Phone: [facility] 10-19-2022 09:21-0400 Diastolic blood pressure 64 mm[Hg] John England MD Work Phone: [facility] 10-19-2022 09:21-0400 Heart rate 56 /min John England MD Work Phone: [facility] 10-19-2022 09:21-0400 Respiratory rate 16 /min John England MD Work Phone: [facility] 10-19-2022 09:21-0400 SaO2% (BldA) [Mass fraction] 98 % John England MD Work Phone: [facility] 10-19-2022 09:21-0400 Systolic blood pressure 129 mm[Hg] John England MD Work Phone: [facility] 10-15-2022 10:40-0400 Body temperature 97.39 [degF] BARRON Feliz MD Work Phone: [facility] 10-15-2022 10:40-0400 Body weight 78.02 kg BARRON Feliz MD Work Phone: [facility] 10-15-2022 10:40-0400 Diastolic blood pressure 79 mm[Hg] BARRON Feliz MD Work Phone: [facility] 10-15-2022 10:40-0400 Heart rate 83 /min BARRON Feliz MD Work Phone: [facility] 10-15-2022 10:40-0400 Respiratory rate 16 /min BARRON Feliz MD Work Phone: [facility] 10-15-2022 10:40-0400 SaO2% (BldA) [Mass fraction] 100 % BARRON Feliz MD Work Phone: [facility] 10-15-2022 10:40-0400 Systolic blood pressure 126 mm[Hg] BARRON Feliz MD Work Phone: [facility] 10-08-2022 11:07-0400 Body temperature 98.2 [degF] Chair [place]burgh Work Phone: [facility] 10-08-2022 11:07-0400 Diastolic blood pressure 76 mm[Hg] Chair [place] Work Phone: [facility] 10-08-2022 11:07-0400 Heart rate 70 /min Chair [place]burgh Work Phone: [facility] 10-08-2022 11:07-0400 Respiratory rate 18 /min Chair [place] Work Phone: [facility] 10-08-2022 11:07-0400 SaO2% (BldA) [Mass fraction] 99 % Chair [place] Work Phone: [facility] 10-08-2022 11:07-0400 Systolic blood pressure 129 mm[Hg] Chair [place] Work Phone: [facility] 10-08-2022 10:48-0400 Body temperature 97.2 [degF] BARRON Feliz MD Work Phone: [facility] 10-08-2022 10:48-0400 Body weight 79.65 kg BARRON Feliz MD Work Phone: [facility] 10-08-2022 10:48-0400 Diastolic blood pressure 80 mm[Hg] BARRON Feliz MD Work Phone: [facility] 10-08-2022 10:48-0400 Heart rate 67 /min BARRON Feliz MD Work Phone: [facility] 10-08-2022 10:48-0400 Respiratory rate 16 /min BARRON Feliz MD Work Phone: [facility] 10-08-2022 10:48-0400 SaO2% (BldA) [Mass fraction] 99 % BARRON Feliz MD Work Phone: [facility] 10-08-2022 10:48-0400 Systolic blood pressure 145 mm[Hg] BARRON Feliz MD Work Phone: [facility] 10-01-2022 11:40-0400 Body height 166.9 cm Maryam Hodgson APRN.RENTAL AGENT Work Phone: [facility] 10-01-2022 11:40-0400 Body temperature 96.91 [degF] Maryam Hodgson APRN.RENTAL AGENT Work Phone: [facility] 10-01-2022 11:40-0400 Body weight 80.29 kg Maryam Hodgson APRN.RENTAL AGENT Work Phone: [facility] 10-01-2022 11:40-0400 Diastolic blood pressure 78 mm[Hg] Maryam Hodgson APRN.RENTAL AGENT Work Phone: [facility] 10-01-2022 11:40-0400 Heart rate 74 /min Maryam Hodgson APRN.RENTAL AGENT Work Phone: [facility] 10-01-2022 11:40-0400 Respiratory rate 16 /min Maryam Hodgson APRN.RENTAL AGENT Work Phone: [facility] 10-01-2022 11:40-0400 SaO2% (BldA) [Mass fraction] 99 % Maryam Hodgson APRN.RENTAL AGENT Work Phone: [facility] 10-01-2022 11:40-0400 Systolic blood pressure 129 mm[Hg] Maryam Hodgson APRN.RENTAL AGENT Work Phone: [facility] 10-01-2022 10:47-0400 Body temperature 96.91 [degF] BARRON Feliz MD Work Phone: [facility] 10-01-2022 10:47-0400 Body weight 80.65 kg BARRON Feliz MD Work Phone: [facility] 10-01-2022 10:47-0400 Diastolic blood pressure 78 mm[Hg] BARRON Feliz MD Work Phone: [facility] 10-01-2022 10:47-0400 Heart rate 74 /min BARRON Feliz MD Work Phone: [facility] 10-01-2022 10:47-0400 Respiratory rate 16 /min BARRON Feliz MD Work Phone: [facility] 10-01-2022 10:47-0400 SaO2% (BldA) [Mass fraction] 99 % BARRON Feliz MD Work Phone: [facility] 10-01-2022 10:47-0400 Systolic blood pressure 129 mm[Hg] BARRON Feliz MD Work Phone: [facility] 09-24-2022 10:40-0400 Body temperature 97.59 [degF] BARRON Feliz MD Work Phone: [facility] 09-24-2022 10:40-0400 Body weight 83.46 kg BARRON Feliz MD Work Phone: [facility] 09-24-2022 10:40-0400 Diastolic blood pressure 68 mm[Hg] BARRON Feliz MD Work Phone: [facility] 09-24-2022 10:40-0400 Heart rate 83 /min BARRON Feliz MD Work Phone: [facility] 09-24-2022 10:40-0400 Respiratory rate 18 /min BARRON Feliz MD Work Phone: [facility] 09-24-2022 10:40-0400 SaO2% (BldA) [Mass fraction] 98 % BARRON Feliz MD Work Phone: [facility] 09-24-2022 10:40-0400 Systolic blood pressure 133 mm[Hg] BARRON Feliz MD Work Phone: [facility] 09-17-2022 11:03-0400 Body temperature 97.7 [degF] BARRON Feliz MD Work Phone: [facility] 09-17-2022 11:03-0400 Body weight 84.82 kg BARRON Feliz MD Work Phone: [facility] 09-17-2022 11:03-0400 Diastolic blood pressure 73 mm[Hg] BARRON Feliz MD Work Phone: [facility] 09-17-2022 11:03-0400 Heart rate 75 /min BARRON Feliz MD Work Phone: [facility] 09-17-2022 11:03-0400 Respiratory rate 18 /min BARRON Feliz MD Work Phone: [facility] 09-17-2022 11:03-0400 SaO2% (BldA) [Mass fraction] 95 % BARRON Feliz MD Work Phone: [facility] 09-17-2022 11:03-0400 Systolic blood pressure 167 mm[Hg] BARRON Feliz MD Work Phone: [facility] 09-10-2022 11:17-0500 Body temperature 97.81 [degF] BARRON Feliz MD Work Phone: [facility] 09-10-2022 11:17-0500 Body weight 85.73 kg BARRON Feliz MD Work Phone: [facility] 09-10-2022 11:17-0500 Diastolic blood pressure 81 mm[Hg] BARRON Feliz MD Work Phone: [facility] 09-10-2022 11:17-0500 Heart rate 72 /min BARRON Feliz MD Work Phone: [facility] 09-10-2022 11:17-0500 Respiratory rate 18 /min BARRON Feliz MD Work Phone: [facility] 09-10-2022 11:17-0500 SaO2% (BldA) [Mass fraction] 97 % BARRON Feliz MD Work Phone: [facility] 09-10-2022 11:17-0500 Systolic blood pressure 150 mm[Hg] BARRON Feliz MD Work Phone: [facility] 09-03-2022 11:09-0500 Body height 166.9 cm John England MD Work Phone: [facility] 09-03-2022 11:09-0500 Body temperature 97 [degF] John England MD Work Phone: [facility] 09-03-2022 11:09-0500 Body weight 83.46 kg John England MD Work Phone: [facility] 09-03-2022 11:09-0500 Diastolic blood pressure 74 mm[Hg] John England MD Work Phone: [facility] 09-03-2022 11:09-0500 Heart rate 70 /min John England MD Work Phone: [facility] 09-03-2022 11:09-0500 Respiratory rate 16 /min John England MD Work Phone: [facility] 09-03-2022 11:09-0500 SaO2% (BldA) [Mass fraction] 97 % John England MD Work Phone: [facility] 09-03-2022 11:09-0500 Systolic blood pressure 149 mm[Hg] John England MD Work Phone: [facility] 09-03-2022 09:57-0500 Body temperature 97 [degF] BARRON Feliz MD Work Phone: [facility] 09-03-2022 09:57-0500 Body weight 81.19 kg BARRON Feliz MD Work Phone: [facility] 09-03-2022 09:57-0500 Diastolic blood pressure 74 mm[Hg] BARRON Feliz MD Work Phone: [facility] 09-03-2022 09:57-0500 Heart rate 70 /min BARRON Feliz MD Work Phone: [facility] 09-03-2022 09:57-0500 Respiratory rate 16 /min BARRON Feliz MD Work Phone: [facility] 09-03-2022 09:57-0500 SaO2% (BldA) [Mass fraction] 97 % BARRON Feliz MD Work Phone: [facility] 09-03-2022 09:57-0500 Systolic blood pressure 149 mm[Hg] BARRON Feliz MD Work Phone: [facility] 08-16-2022 15:39-0500 Body height 168.9 cm John England MD Work Phone: [facility] 08-16-2022 15:39-0500 Body temperature 97.7 [degF] John England MD Work Phone: [facility] 08-16-2022 15:39-0500 Body weight 84.73 kg John England MD Work Phone: [facility] 08-16-2022 15:39-0500 Diastolic blood pressure 73 mm[Hg] John England MD Work Phone: [facility] 08-16-2022 15:39-0500 Heart rate 64 /min John England MD Work Phone: [facility] 08-16-2022 15:39-0500 Respiratory rate 16 /min John England MD Work Phone: [facility] 08-16-2022 15:39-0500 SaO2% (BldA) [Mass fraction] 97 % John England MD Work Phone: [facility] 08-16-2022 15:39-0500 Systolic blood pressure 156 mm[Hg] John England MD Work Phone: [facility] 08-14-2022 10:01-0500 Body height 168.9 cm BARRON Feliz MD Work Phone: [facility] 08-14-2022 10:01-0500 Body temperature 97.7 [degF] BARRON Feliz MD Work Phone: [facility] 08-14-2022 10:01-0500 Body weight 84.82 kg BARRON Feliz MD Work Phone: [facility] 08-14-2022 10:01-0500 Diastolic blood pressure 90 mm[Hg] BARRON Feliz MD Work Phone: [facility] 08-14-2022 10:01-0500 Heart rate 58 /min BARRON Feliz MD Work Phone: [facility] 08-14-2022 10:01-0500 Respiratory rate 16 /min BARRON Feliz MD Work Phone: [facility] 08-14-2022 10:01-0500 SaO2% (BldA) [Mass fraction] 99 % BARRON Feliz MD Work Phone: [facility] 08-14-2022 10:01-0500 Systolic blood pressure 167 mm[Hg] BARRON Feliz MD Work Phone: [facility] 06-13-2022 14:55-0500 Blood Pressure Location Renea PARTIDA [facility] 06-13-2022 14:55-0500 Diastolic blood pressure 60 mm[Hg] Renea PARTIDA [facility] 06-13-2022 14:55-0500 Heart rate 60 /min Renea PARTIDA [facility] 06-13-2022 14:55-0500 Respiratory rate 16 /min Renea PARTIDA [facility] 06-13-2022 14:55-0500 Systolic blood pressure 120 mm[Hg] Renea PARTIDA General Surgery Bull Encounters Encounter Date Encounter Type Care Provider Facility Start: 11-06-2023 End: 11-06-2023 ambulatory [facility] Facility:[facility] Start: 11-06-2023 End: 11-06-2023 Patient encounter procedure Yordan Feliz MD Work Phone: Radiation Oncology Comment on above: Head and neck cancer (HCC) (Primary Dx) Start: 10-23-2023 End: 10-23-2023 ambulatory [facility] Facility:[facility] Start: 10-23-2023 End: 10-23-2023 Office outpatient visit 25 minutes John England MD Work Phone: Hematology/Oncology Comment on above: 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); Lung nodules; Stage 3 chronic kidney disease, unspecified whether stage 3a or 3b CKD (HCC) Start: 10-16-2023 Telephone encounter Rafael sinclair RN Work Phone: Hematology/Oncology Comment on above: Care Coordination (R krish) Start: 10-16-2023 End: 10-16-2023 ambulatory [facility] Facility:[facility] Start: 10-02-2023 End: 10-02-2023 ambulatory SERENE H TIMMIS Not Available Start: 09-04-2023 End: 09-04-2023 ambulatory SERENE H TIMMIS Not Available Start: 07-31-2023 End: 07-31-2023 ambulatory SERENE H TIMMIS Not Available Start: 06-24-2023 End: 06-24-2023 ambulatory SERENE H TIMMIS Not Available Start: 06-19-2023 End: 06-19-2023 ambulatory [facility] Facility:[facility] Start: 06-12-2023 End: 06-12-2023 ambulatory [facility] Facility:[facility] Start: 06-11-2023 End: 06-11-2023 ambulatory [facility] Facility:[facility] Start: 06-10-2023 End: 06-10-2023 ambulatory SHAIKH VIDAL Not Available Start: 05-27-2023 End: 05-27-2023 ambulatory SERENE MORALES Not Available Start: 05-08-2023 End: 05-08-2023 ambulatory SHAIKH VIDAL Facility:[facility] Start: 05-08-2023 End: 05-08-2023 Patient encounter procedure Yordan Feliz MD Work Phone: Radiation Oncology Comment on above: Other specified diso rders of thyroid (Primary Dx) Start: 03-20-2023 End: 03-20-2023 ambulatory BOJORQUEZ LAXMILAKassidy Facility:[facility] Start: 03-20-2023 End: 03-20-2023 Office outpatient visit 25 minutes John England MD Work Phone: Hematology/Oncology Comment on above: 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); Mass of right lung Start: 03-14-2023 End: 03-14-2023 ambulatory BOJORQUEZ VIDAL Facility:[facility] Start: 02-06-2023 End: 02-06-2023 Orders Only Shaikh Vidal WELCH Work Phone: Hematology/Oncology Comment on above: Hyperlipidemia, unsp ecified hyperlipidemia type (Primary Dx); Type 2 diabetes mellitus without complication, unspecified whether long term care phlebotomist insulin use (HCC); Unspecified essential hypertension Lung nodule seen on imaging study (Primary Dx); Disorder of carbohydrate metabolism (HCC) Start: 02-06-2023 End: 02-06-2023 Office outpatient visit 25 minutes John England MD Work Phone: Hematology/Oncology Comment on above: 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); Mass of right lung; Lung nodules Start: 01-29-2023 End: 01-29-2023 ambulatory Yordan FELIZ Facility:[facility] Start: 11-28-2022 End: 11-28-2022 ambulatory Yordan FELIZ Facility:[facility] Start: 11-28-2022 End: 11-28-2022 Patient encounter procedure Yordan Feliz MD Work Phone: Radiation Oncology Comment on above: 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) Start: 11-07-2022 End: 11-07-2022 ambulatory MARYAM HODGSON Facility:[facility] Start: 11-07-2022 End: 11-07-2022 Office outpatient visit 25 minutes John England MD Work Phone: Hematology/Oncology Comment on above: 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); Chemotherapy-induced neutropenia (HCC); Stage 3 chronic kidney disease, unspecified whether stage 3a or 3b CKD (HCC) Start: 10-31-2022 End: 10-31-2022 ambulatory Chair 21 Jose Work Phone: Hematology/Oncology Comment on above: 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); Stage 3 chronic kidney disease, unspecified whether stage 3a or 3b CKD (HCC) Start: 10-31-2022 End: 10-31-2022 Patient encounter procedure Maryam Hodgson FRONT END SOFTWARE ENGINEER.RENTAL AGENT Work Phone: [facility] Comment on above: Head and neck cancer (HCC) (Primary Dx) Start: 10-25-2022 End: 10-25-2022 ambulatory Maryam Hodgson FRONT END SOFTWARE ENGINEER.RENTAL AGENT Work Phone: Hematology/Oncology Comment on above: 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); Chemotherapy-induced neutropenia (HCC) Start: 10-25-2022 End: 10-25-2022 Patient encounter procedure Maryam Hodgson FRONT END SOFTWARE ENGINEER.RENTAL AGENT Work Phone: [facility] Start: 10-22-2022 Patient encounter procedure Yordan Feliz MD Work Phone: [facility] Start: 10-22-2022 Radiation Oncology Note Yordan Feliz MD Work Phone: Radiation Oncology Comment on above: Completion Note Start: 10-19-2022 End: 10-19-[address] Work Phone: [facility] Start: 10-19-2022 End: 10-19-[address] Work Phone: Nutrition Therapy Comment on above: Nutrition Counseling Start: 10-19-2022 End: 10-19-2022 Office outpatient visit 25 minutes John England MD Work Phone: Hematology/Oncology Comment on above: 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); Chemotherapy-induced neutropenia (HCC) Start: 10-15-2022 End: 10-15-2022 Patient encounter procedure Yordan Feliz MD Work Phone: Radiation Oncology Comment on above: Head and neck cancer (HCC) (Primary Dx) Start: 10-09-2022 Telephone encounter John andrews MD Work Phone: Radiation Oncology Comment on above: skin irritation Start: 10-08-2022 End: 10-08-2022 ambulatory Chair 9 Jose Work Phone: Hematology/Oncology Comment on above: 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); Cancer of base of tongue (HCC) Start: 10-08-2022 End: 10-08-2022 Patient encounter procedure Yordan Feliz MD Work Phone: Radiation Oncology Comment on above: Head and neck cancer (HCC) (Primary Dx) Start: 10-05-2022 End: 10-05-[address] Work Phone: [facility] Start: 10-05-2022 End: 10-05-[address] Gil [address] Work Phone: Nutrition Therapy Comment on above: Nutrition Counseling Start: 10-01-2022 End: 10-01-2022 ambulatory Chair 9 Jose Work Phone: Hematology/Oncology Comment on above: 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); 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) 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) Start: 10-01-2022 End: 10-01-2022 Patient encounter procedure Yordan Feliz MD Work Phone: Radiation Oncology Comment on above: Tongue cancer (HCC) (Primary Dx) Start: 09-24-2022 End: 09-24-2022 Patient encounter procedure Yordan Feliz MD Work Phone: Radiation Oncology Comment on above: Tongue cancer (HCC) (Primary Dx) Start: 09-21-2022 End: 09-21-[address] Work Phone: [facility] Start: 09-21-2022 End: 09-21-[address] Gil [address] Work Phone: Nutrition Therapy Comment on above: Nutrition Assessment Start: 09-17-2022 End: 09-17-2022 ambulatory Chair 9 Jose Work Phone: Hematology/Oncology Comment on above: 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); 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) Start: 09-17-2022 End: 09-17-2022 Patient encounter procedure Yordan Feliz MD Work Phone: Radiation Oncology Comment on above: Tongue cancer (HCC) (Primary Dx) Start: 09-10-2022 End: 09-10-2022 ambulatory Chair 9 Jose Work Phone: Hematology/Oncology Comment on above: 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) Start: 09-10-2022 End: 09-10-2022 Patient encounter procedure Yordan Feliz MD Work Phone: Radiation Oncology Comment on above: Tongue cancer (HCC) (Primary Dx) Start: 09-07-2022 Telephone encounter Marysol Ford ematology/Oncology Comment on above: Social Work Services Start: 09-06-2022 Telephone encounter Rafael sinclair RN Work Phone: Hematology/Oncology Comment on above: Care Coordination (C 1D1 Post Treatment Call) Start: 09-03-2022 End: 09-03-2022 ambulatory Chair 9 Jose Work Phone: Hematology/Oncology Comment on above: 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) Start: 09-03-2022 End: 09-03-2022 Office outpatient visit 15 minutes John England MD Work Phone: Hematology/Oncology Comment on above: 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) Start: 09-03-2022 End: 09-03-2022 Patient encounter procedure G Jeyson Feliz MD Work Phone: Radiation Oncology Comment on above: Tongue cancer (HCC) (Primary Dx) Start: 08-29-2022 Telephone encounter Rafael sinclair RN Work Phone: Hematology/Oncology Comment on above: Care Coordination (P t Questions) Start: 08-28-2022 Telephone encounter Rafael sinclair RN Work Phone: Hematology/Oncology Comment on above: Care Coordination (P ET Results) Start: 08-27-2022 Telephone encounter Rafael sinclair RN Work Phone: Hematology/Oncology Comment on above: Care Coordination (P t Questions) Start: 08-24-2022 Patient encounter procedure [facility] Provider [facility] Department Start: 08-23-2022 End: 08-23-2022 Patient encounter procedure Yordan Feliz MD Work Phone: Radiation Oncology Comment on above: Tongue cancer (HCC) (Primary Dx) Start: 08-23-2022 Radiation Oncology Note G David Feliz MD Work Phone: Radiation Oncology Comment on above: Simulation Note Treatment Planning Start: 08-23-2022 Telephone encounter Rafael sinclair RN Work Phone: Hematology/Oncology Comment on above: Care Coordination (T reatment Planning) Start: 08-21-2022 Telephone encounter Rafael sinclair RN Work Phone: Hematology/Oncology Comment on above: Care Coordination (T reatment Planning) Start: 08-20-2022 End: 08-20-[address] Work Phone: [facility] Start: 08-20-2022 End: 08-20-[address] Work Phone: Nutrition Therapy Comment on above: Nutrition Telephone Start: 08-17-2022 Patient encounter procedure [facility] Provider [facility] Department Start: 08-16-2022 End: 08-16-2022 Office outpatient new 60 minutes John England MD Work Phone: Hematology/Oncology Comment on above: 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) Start: 08-15-2022 Patient encounter procedure [facility] Provider [facility] Department Start: 08-15-2022 Telephone encounter G Jeyson Feliz MD Work Phone: Radiation Oncology Comment on above: Dental Clearance - R adiation Therapy Start: 08-14-2022 ambulatory Nela Samayoa RN Radiati on Oncology Comment on above: Patient Education Start: 08-14-2022 End: 08-14-2022 Patient encounter procedure Yordan Feliz MD Work Phone: Radiation Oncology Comment on above: Tongue cancer (HCC) (Primary Dx); Head and neck cancer (HCC) Start: 08-01-2022 Encounter for preprocedural laboratory examination DR SERENE MORALES [facility] Start: 07-31-2022 End: 07-31-2022 Patient encounter procedure Renea PARTIDA General Surgery Nill/Said [place] Start: 07-31-2022 End: 07-31-2022 ambulatory Renea PARTIDA Facility:[facility] Start: 07-27-2022 End: 07-28-[address] SERENE MORALES Facility: Start: 07-27-2022 End: 07-28-2022 Encounter for preprocedural laboratory examination DR SERENE MORALES Facility:[facility] Start: 07-18-2022 End: 07-19-2022 ambulatory Renea PARTIDA Facility:[id number] Start: 07-11-2022 End: 07-12-[address] RENEA PARTIDA Facility:[facility] Start: 06-13-2022 End: 06-14-2022 ambulatory Renea PARTIDA Facility:[facility] Start: 06-13-2022 End: 06-13-2022 Patient encounter procedure Renea PARTIDA General Surgery Nill/Said Bull Start: 06-09-2022 End: 06-10-[address] MANNIE NELSON Facility:[facility] Start: 06-06-2022 ambulatory Renea PARTIDA Facility:Yordan Maciel Bull Start: 02-27-2022 End: 02-28-[address] MANNIE NELSON Facility:[facility] Procedures Date Procedure Procedure Detail Performing Clinician Start: 10-08-2022 CBC + DIFF John andrews MD Work Phone: Start: 10-08-2022 Comprehensive metabo lic panel Jonh England MD Work Phone: Start: 10-01-2022 Blood count complete auto&auto difrntl wbc John England MD Work Phone: Start: 09-17-2022 Blood count complete auto&auto difrntl wbc John England MD Work Phone: Start: 02-27-[address] MANNIE HO Comment on above: Performed By: #### P SAD #### [facility] [address] [place] [address] Dr. Mikayla Galan Start: 07-08-2016 Colonoscopy Renea NI LL Start: 07-08-2011 Colonoscopy Renea NI LL Start: 09-05-2006 Colonoscopy Renea NI JOHN Start: 05-08-2003 Colonoscopy Renea NI JOHN Start: 07-08-2001 Cardiac catheterization Renea PARTIDA Start: 07-08-2001 Placement of stent i n cardiac conduit Renea PARTIDA Start: 05-08-2001 Colonoscopy Renea LOPEZ Start: 07-08-1999 Colonoscopy Renea LOPEZ Start: 07-08-1999 Sigmoid colectomy Beau PARTIDA Comment on above: with colocolostomy Bilateral extraction of cataracts Renea PARTIDA Plan of Treatment Date Care Activity Detail Author Start: 10-15-2026 Diabetes Screening Diabetes Screenin [facility] Start: 02-06-2026 DIABETES SCREEN DIABETES SCREEN [facility] Start: 02-06-2026 Diabetes Screening Diabetes Screenin [facility] Start: 11-07-2025 DIABETES SCREEN DIABETES SCREEN [facility] Start: 10-31-2025 DIABETES SCREEN DIABETES SCREEN [facility] Start: 10-25-2025 DIABETES SCREEN DIABETES SCREEN [facility] Start: 10-19-2025 DIABETES SCREEN [facility]CREEN [facility] Start: 10-08-2025 DIABETES SCREEN DIABETES SCREEN [facility] Start: 10-01-2025 DIABETES SCREEN DIABETES SCREEN [facility] Start: 09-24-2025 DIABETES SCREEN DIABETES SCREEN [facility] Start: 09-17-2025 DIABETES SCREEN DIABETES SCREEN [facility] Start: 09-10-2025 DIABETES SCREEN DIABETES SCREEN [facility] Start: 09-03-2025 DIABETES SCREEN DIABETES SCREEN [facility] Start: 08-23-2025 DIABETES SCREEN DIABETES SCREEN [facility] Start: 10-15-2024 Complete blood count Hemoglobin/Sebastien tocrit [facility] Start: 10-15-2024 Creatinine measurement Serum Creatin ine [facility] Start: 04-29-2024 End: 04-29-2024 Patient encounter procedure 04/29/2024 10:30 AM EDT Office Visit Radiation Oncology [address] [place] [address] Yordan Feliz MD [address] [place] [address] Followup Radiation Oncology Comment on above: Followup Start: 04-29-2024 End: 04-29-2024 Follow-up encounter 04/29/2024 10:00 AM EDT Visit (SP) Office Hematology/Oncology [address] [place] [address] [place] [address] John England MD [address] [facility] [place] [address] 6 month follow up after scans Hematology/Oncology Comment on above: [address] scans Start: 04-23-2024 End: 10-22-2024 CBC W Auto Differential panel - Blood COMPLETE BLOOD COUNT AND DIFFERENTIAL Lab Routine 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 Expected: 04/23/2024 (Approximate), Expires: 10/22/2024 [facility] Work Phone: Comment on above: Expected: 04/23/2024 (Approximate), Expires: 10/22/2024 Start: 04-23-2024 End: 10-22-2024 Cobalamin (Vitamin B12) [Mass/volume] in Serum or Plasma VITAMIN B12 Lab Routine 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 Expected: 04/23/2024 (Approximate), Expires: 10/22/2024 [facility] Work Phone: Comment on above: Expected: 04/23/2024 (Approximate), Expires: 10/22/2024 Start: 04-23-2024 End: 10-22-2024 Comprehensive metabolic 2000 panel - Serum or Plasma COMPREHENSIVE METABOLIC PANEL Lab Routine 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 Expected: 04/23/2024 (Approximate), Expires: 10/22/2024 [facility] Work Phone: Comment on above: Expected: 04/23/2024 (Approximate), Expires: 10/22/2024 Start: 04-23-2024 End: 11-21-2024 CT Chest W contrast IV CT CHEST W IVCON Radiology Routine 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 Expected: 04/23/2024 (Approximate), Expires: 11/21/2024 [facility] Work Phone: Comment on above: Expected: 04/23/2024 (Approximate), Expires: 11/21/2024 Start: 04-23-2024 End: 11-21-2024 CT Neck W contrast IV CT NECK SOFT TISSUE W IVCON Radiology Routine 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 Expected: 04/23/2024 (Approximate), Expires: 11/21/2024 [facility] Work Phone: Comment on above: Expected: 04/23/2024 (Approximate), Expires: 11/21/2024 Start: 04-23-2024 End: 10-22-2024 Ferritin [Mass/volume] in Serum or Plasma FERRITIN Lab Routine 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 Expected: 04/23/2024 (Approximate), Expires: 10/22/2024 [facility] Work Phone: Comment on above: Expected: 04/23/2024 (Approximate), Expires: 10/22/2024 Start: 04-23-2024 End: 10-22-2024 Folate [Mass/volume] in Serum or Plasma FOLATE, SERUM Lab Routine 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 Expected: 04/23/2024 (Approximate), Expires: 10/22/2024 [facility] Work Phone: Comment on above: Expected: 04/23/2024 (Approximate), Expires: 10/22/2024 Start: 04-23-2024 End: 10-22-2024 Iron and Iron binding capacity panel - Serum or Plasma IRON AND TIBC Lab Routine 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 Expected: 04/23/2024 (Approximate), Expires: 10/22/2024 [facility] Work Phone: Comment on above: Expected: 04/23/2024 (Approximate), Expires: 10/22/2024 Start: 04-23-2024 End: 04-23-2024 Patient encounter procedure 04/23/2024 8:15 AM EDT Appointment Radiology Pet CT [address] [place] [address] [place] [address] CT CHEST AND NECK Radiology Pet CT Comment on above: CT CHEST AND NECK Start: 03-08-2024 Influenza vaccination Influenz a Vaccine (Season Ended) [facility] Start: 02-07-2024 SERUM CREATININE SERUM CREATININE [facility] Start: 11-08-2023 SERUM CREATININE SERUM CREATININE [facility] Start: 11-06-2023 End: 02-05-2024 Thyrotropin [Units/volume] in Serum or Plasma TSH BLD Lab Routine Other specified disorders of thyroid Expected: 11/06/2023 (Approximate), Expires: 02/05/2024 [facility] Work Phone: Comment on above: Expected: 11/06/2023 (Approximate), Expires: 02/05/2024 Start: 11-06-2023 End: 02-05-2024 Thyroxine (T4) free [Mass/volume] in Serum or Plasma T4 FREE/FREE THYROX Lab Routine Other specified disorders of thyroid Expected: 11/06/2023 (Approximate), Expires: 02/05/2024 [facility] Work Phone: Comment on above: Expected: 11/06/2023 (Approximate), Expires: 02/05/2024 Start: 11-06-2023 End: 02-05-2024 Triiodothyronine (T3) [Mass/volume] in Serum or Plasma T3 BLD Lab Routine Other specified disorders of thyroid Expected: 11/06/2023 (Approximate), Expires: 02/05/2024 [facility] Work Phone: Comment on above: Expected: 11/06/2023 (Approximate), Expires: 02/05/2024 Start: 2023 HEMOGLOBIN/HEMATOCRIT HEMOGLOBIN/HEM ATOCRIT [facility] Start: 2023 SERUM CREATININE SERUM CREATININE [facility] Start: 07-08-2023 Advance Directive Discussion Advance Directive Discussion [facility] Start: 07-08-2023 Behavioral Health Screening Behavioral Health Screening [facility] Start: 06-19-2023 End: 03-20-2024 CBC W Auto Differential panel - Blood CBC + DIFF Lab Routine 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) Mass of right lung Expected: 06/19/2023 (Approximate), Expires: 03/20/2024 [facility] Work Phone: Comment on above: Expected: 06/19/2023 (Approximate), Expires: 03/20/2024 Start: 06-19-2023 End: 03-20-2024 Comprehensive metabolic 2000 panel - Serum or Plasma COMP METABOLIC PANEL Lab Routine 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) Mass of right lung Expected: 06/19/2023 (Approximate), Expires: 03/20/2024 [facility] Work Phone: Comment on above: Expected: 06/19/2023 (Approximate), Expires: 03/20/2024 Start: 06-19-2023 End: 04-18-2024 CT CHEST W IVCON CT CHEST W IVCON Radiology Routine 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) Mass of right lung Expected: 06/19/2023 (Approximate), Expires: 04/18/2024 [facility] Work Phone: Comment on above: Expected: 06/19/2023 (Approximate), Expires: 04/18/2024 Start: 03-13-2023 End: 03-07-2024 CT CHEST W IVCON CT CHEST W IVCON Radiology Routine Lung nodules Expected: 03/13/2023 (Approximate), Expires: 03/07/2024 [facility] Work Phone: Comment on above: Expected: 03/13/2023 (Approximate), Expires: 03/07/2024 Start: 03-08-2023 Covid-19 Vaccine ( season) Covid-19 Vaccine ( season) [facility] Start: 03-08-2023 Influenza vaccination C [facility] Start: 02-06-2023 End: 04-08-2023 ALBUMIN/CREAT RATIO RND UR [facility] Work Phone: Comment on above: Expected: 02/06/2023 , Expires: 04/08/2023 Start: 02-06-2023 End: 04-08-2023 Creatinine [Mass/volume] in Urine collected for unspecified duration [facility] Work Phone: Comment on above: Expected: 02/06/2023 , Expires: 04/08/2023 Start: 02-06-2023 End: 04-08-2023 Hemoglobin A1c in Blood [facility] Work Phone: Comment on above: Expected: 02/06/2023 , Expires: 04/08/2023 Start: 02-06-2023 End: 04-08-2023 Lipid 1996 panel - Serum or Plasma [facility] Work Phone: Comment on above: Expected: 02/06/2023 , Expires: 04/08/2023 Start: 01-30-2023 End: 11-08-2023 CBC W Auto Differential panel - Blood CBC + DIFF Lab Routine 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) Chemotherapy-induced neutropenia (HCC) Expected: 01/30/2023 (Approximate), Expires: 11/08/2023 [facility] Work Phone: Comment on above: Expected: 01/30/2023 (Approximate), Expires: 11/08/2023 Start: 01-30-2023 End: 11-08-2023 Comprehensive metabolic 2000 panel - Serum or Plasma COMP METABOLIC PANEL Lab Routine 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) Chemotherapy-induced neutropenia (HCC) Expected: 01/30/2023 (Approximate), Expires: 11/08/2023 [facility] Work Phone: Comment on above: Expected: 01/30/2023 (Approximate), Expires: 11/08/2023 Start: 01-28-2023 End: 12-28-2023 NM PET/CT SKULL-THIGH SUBSEQUENT NM PET/CT SKULL-THIGH SUBSEQUENT Radiology Routine 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) Expected: 01/28/2023, Expires: 12/28/2023 [facility] Work Phone: Comment on above: Expected: 01/28/2023 , Expires: 12/28/2023 Start: 11-08-2022 End: 01-08-2023 CBC W Auto Differential panel - Blood CBC + DIFF Lab Routine 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) Expected: 11/08/2022, Expires: 01/08/2023 [facility] Work Phone: Comment on above: Expected: 11/08/2022 , Expires: 01/08/2023 Start: 11-08-2022 End: 01-08-2023 Comprehensive metabolic 2000 panel - Serum or Plasma COMP METABOLIC PANEL Lab Routine 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) Expected: 11/08/2022, Expires: 01/08/2023 [facility] Work Phone: Comment on above: Expected: 11/08/2022 , Expires: 01/08/2023 Start: 10-26-2022 End: 12-26-2022 CBC W Auto Differential panel - Blood CBC + DIFF Lab Routine 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) Chemotherapy-induced neutropenia (HCC) Expected: 10/26/2022, Expires: 12/26/2022 [facility] Work Phone: Comment on above: Expected: 10/26/2022 , Expires: 12/26/2022 Start: 10-26-2022 End: 12-26-2022 Comprehensive metabolic 2000 panel - Serum or Plasma COMP METABOLIC PANEL Lab Routine 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) Chemotherapy-induced neutropenia (HCC) Expected: 10/26/2022, Expires: 12/26/2022 [facility] Work Phone: Comment on above: Expected: 10/26/2022 , Expires: 12/26/2022 Start: 07-08-2022 ADVANCE DIRECTIVE DISCUSSION ADVANCE DIRECTIVE DISCUSSION [facility] Start: 07-08-2022 DEPRESSION ASSESSMENT DEPRESSION ASS ESSMENT [facility] Start: 2020 COVID-19 VACCINE (3 - Booster for Moderna series) COVID-19 VACCINE (3 - Booster for Moderna series) [facility] Start: 10-04-2020 COVID-19 VACCINE (3 - Moderna risk series) COVID-19 VACCINE (3 - Moderna risk series) [facility] Start: 10-31-2008 Pneumococcal Vaccine : 65+ (1 of 1 - PCV) Pneumococcal Vaccine: 65+ (1 of 1 - PCV) [facility] Start: 10-31-2008 PNEUMOCOCCAL: 65+ (1 - PCV) PNEUMOCOCCAL: 65+ (1 - PCV) [facility] Start: 2003 RSV Vaccine (1 - 1-d ose 60+ series) RSV Vaccine (1 - 1-dose 60+ series) [facility] Start: 10-31-1993 SHINGRIX VACCINE (1 of 2) SANCHEZ GRIX VACCINE (1 of 2) [facility] Start: 10-31-1988 DIABETES SCREEN DIABETES SCREEN [facility] Start: 10-31-1962 SHINGRIX VACCINE (1 of 2) SANCHEZ GRIX VACCINE (1 of 2) [facility] Start: 10-31-1962 Urine microalbumin profile [facility] Start: 10-31-1961 ANNUAL PCP TEAM PROCUREMENT ENGINEER BELLE DISEASE VISIT ANNUAL PCP TEAM CHRONIC DISEASE VISIT [facility] Start: 10-31-1961 HEPATITIS C SCREENING HEPATITIS C SC MELISSA [facility] Start: 10-31-1949 Pneumococcal Vaccine : 65+ (1 - PCV) Pneumococcal Vaccine: 65+ (1 - PCV) [facility] Start: 10-31-1949 Pneumococcal Vaccine : 65+ (1 of 2 - PCV) Pneumococcal Vaccine: 65+ (1 of 2 - PCV) [facility] Start: 10-31-1949 PNEUMOCOCCAL: 65+ (1 - PCV) PNEUMOCOCCAL: 65+ (1 - PCV) [facility] End: 08-16-2023 CBC W Auto Differential panel - Blood CBC + DIFF Lab Routine Cancer of base of tongue (HCC) Once per week for 10 Occurrences starting 08/16/2022 until 08/16/2023, 1 completed [facility] Work Phone: Comment on above: Once per week for 10 Occurrences starting 08/16/2022 until 08/16/2023, 1 completed CBC W Auto Different ial panel - Blood CBC + DIFF Lab Routine Cancer of base of tongue (HCC) 10/08/2022 11:35 AM EDT [facility] Work Phone: End: 08-16-2023 Comprehensive metabolic 2000 panel - Serum or Plasma COMP METABOLIC PANEL Lab Routine Cancer of base of tongue (HCC) Once per week for 10 Occurrences starting 08/16/2022 until 08/16/2023, 1 completed [facility] Work Phone: Comment on above: Once per week for 10 Occurrences starting 08/16/2022 until 08/16/2023, [address] SIM PLANNING RADI ATION ONCOLOGY CT SIM PLANNING RADIATION ONCOLOGY Radiology Routine Tongue cancer (HCC) Ordered: 08/23/2022 [facility] Work Phone: Comment on above: Ordered: 08/23/2022 End: 09-13-[address] attenuation skull base mid-thigh NM PET/CT SKULL-THIGH INITIAL Radiology Routine Tongue cancer (HCC) Head and neck cancer (HCC) 1 Occurrences starting 08/14/2022 until 09/13/2023 [facility] Work Phone: Comment on above: 1 Occurrences starti 08/14/2022 until 09/13/2023 [facility] Immunizations Immunization Date Immunization Notes Care Provider [facility] 05-03-2022 influenza nasal, unspecified formulation [facility]cf Provider [facility] 05-03-2022 influenza virus vaccine, unspecified formulation Renea PARTIDA [facility] 09-06-2020 SARS-CoV-2 (COVID-19 ) mRNA-1273 vaccine Renea PARTIDA [facility] 08-09-2020 SARS-CoV-2 (COVID-19 ) mRNA-1273 vaccine Renea PARTIDA [facility] Payers Date Payer Category Payer Unknown HOSPITAL/MEDICAL GENERIC MEDICAL GENERIC [id number] 2022-Present [phone] [place] [address] [address] [place] [address] Indemnity [id number] 2020 Private Health Insurance [employer] [id number] 2020-Present [phone] [address] [address] [place] [address] Indemnity [id number] 2020 Private Health Insurance [facility] [id number] 2013 Medicare [id number] 1959 Medicare [id number] 1959 Private Health Insurance CLI [id number] 1943 Unknown [id number] [id number]. 727 1943 Unknown [id number] [id number]. 727 1943 Unknown [id number] 2.16.840.1.566578.3.579.2. 727 1943 Unknown [id number] 2.16.840.1.592484.3.579.2. 593 1943 Unknown [id number] 2.16.840.1.678362.3.579.2. 593 1943 Unknown [id number] 2.16.840.1.938625.3.579.2. 593 1943 Unknown [id number] 2.16.840.1.657244.3.579.2. 593 1943 Unknown [id number] 2.16.840.1.925662.3.579.2. 593 1943 Unknown [id number] 2.16.840.1.162660.3.579.2. 593 1943 Unknown [id number] 2.16.840.1.313962.3.579.2. 1259 1943 Unknown [id number] 2.16.840.1.660293.3.579.2. 1259 1943 Unknown [id number] 2.16.840.1.082952.3.579.2. 9 1943 Unknown [id number] 2.16.840.1.271720.3.579.2. 1259 1943 Unknown [id number] 2.16.840.1.401762.3.579.2. 1259 1943 Unknown [id number] 2.16.840.1.930846.3.579.2. 1259 1943 Unknown [id number] 2.16.840.1.294914.3.579.2. 1259 Social History Date Type Detail Facility Start: 06-13-2022 End: 09-03-2022 Tobacco smoking status Never smoked tobacco (finding) [facility] Tobacco smoking status Never [facility] Start: 11-07-2022 End: 02-06-2023 Sex Assigned At Male [facility] Start: 04-30-2013 End: 09-03-2022 Tobacco use and exposure Smokeless tobacco non-user [facility] Start: 08-14-2022 End: 11-06-2023 Alcohol intake Current drinker of alcohol (finding) [facility] Start: 08-14-2022 Alcohol Comment daily 3 beers [facility] Start: 1945 Sex Assigned At Not on file [facility] Start: 11-07-2022 End: 02-06-2023 History of Social function [facility] NEGATED: Highlighted rowStart: NINF History of tobacco use Passive smoker [facility] Functional Status Date Assessment Result Facility 06-13-2022 Functional Status N/A [facility] Clinical Notes 04-28-2015 to 11-06-2023 Yordan Feliz MD - 11/06/2023 10:00 AM EDTPatient InstructionsAbJohn au MD - 10/23/2023 10:45 AM EDTTelephone Encounter - Rafael Meng RN - 10/16/2023 1:14 PM EDT Note Date & Type Note Facility 11-06-2023 Note HNO ID: [id number] Author: Yordan FELIZ MD Service: ? 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 INTERVAL HISTORY: Doing well. Eating fairly well. Has some mild issues with phlegm, no hemoptysis. No fever. Energy level good. No neck pain or otalgia. LABORATORY: Latest Reference Range AND Units 10/16/23 10:46 10/23/23 10:52 Free T4 0.9 - 1.7 ng/dL 1.2 TSH 0.270 - 4.200 mIU/L 2.750 T3 79 - 165 ng/dL 93 WBC 3.70 - 11.00 k/uL 3.08 (L) RBC 4.20 - 6.00 m/uL 4.18 (L) Hemoglobin 13.0 - 17.0 g/dL 12.6 (L) Hematocrit 39.0 - 51.0 % 37.9 (L) Platelet Count 150 - 400 k/uL 183 MCV 80.0 - 100.0 fL 90.7 MCH 26.0 - 34.0 pg 30.1 MCHC 30.5 - 36.0 g/dL 33.2 MPV 9.0 - 12.7 fL 9.1 RDW-CV 11.5 - 15.0 % 13.8 DTYPE Auto Neut% % 71.2 Abs Neut (ANC) 1.45 - 7.50 k/uL 2.19 Lymph% % 15.6 Abs Lymph 1.00 - 4.00 k/uL 0.48 (L) [place]% % 10.4 Abs [place] <0.87 k/uL 0.32 Eosin% % 1.6 Abs Eosin <0.46 k/uL 0.05 Baso% % 0.6 Abs Baso <0.11 k/uL <0.03 Immature Gran % % 0.6 IMMATURE GRANS (ABS) <0.10 k/uL <0.03 NRBC /100 WBC 0.0 Absolute nRBC <0.01 k/uL <0.01 (L): Data is abnormally low RADIOLOGY: CT Neck 10/16/23: IMPRESSION: Primary: NI-RADS 1. Expected post-treatment changes in the neck without evidence of recurrent disease in the primary site. Neck: NI-RADS 1. No evidence of abnormal lymph nodes. CT Chest 10/16/23: 1. Stable appearance of patchy groundglass opacities in the left upper lobe. Stable 4 mm nodular opacity along the right major fissure. No new or enlarging nodules are seen. 2. Stable mildly prominent subcarinal node. No new bulky intrathoracic adenopathy. CT Chest 03/14/23: 1. On patient's prior PET/CT from 01/29/2023, there was a 2.3 x 2.2 cm solid hypermetabolic nodule in the anterior right upper lobe. On today's exam, this is moderately to markedly decreased in density and now represents an area of groundglass opacity measuring over an area of approximately 2.3 x 2.2 cm in size. If this has not undergone interval treatment, then this may represent an infectious/inflammatory focus which is improving. There is an adjacent subcentimeter nodule which is also decreased in density. Finally, there is a 3 mm solid nodule in the anterior right lower lobe which was not clearly seen on the prior PET/CT. However, differences in technique limit the comparison. Would advise continued imaging follow-up with the next chest CT in 3 months. PET/CT 01/29/2023:1. Neck: No suspicious hypermetabolic foci. Posttreatment change. 2. Chest: New hypermetabolic right upper lobe lung nodule. Differential includes inflammatory/neoplastic process. 3. Abdomen and pelvis: No evidence of FDG avid neoplastic process 4. Skeleton: No hypermetabolic osseous lesions ALLERGIES No Known Allergies MEDICATIONS: cholecalciferol, Vitamin D3, (VITAMIN D3) 1,250 mcg (50,000 unit) cap capsule Take 1 capsule by mouth one time a week. latanoprost (XALATAN) 0.005 % ophthalmic solution instill 1 (ONE) DROP IN BOTH EYES AT BEDTIME ergocalciferol 50,000 unit capsule (VITAMIN D2, DRISDOL) TAKE 1 CAPSULE BY MOUTH WEEKLY metFORMIN (GLUCOPHAGE) 500 mg tablet Take 500 mg by mouth once daily. metoprolol succinate ER (TOPROL XL) 25 mg 24 hr tablet Take 25 mg by mouth once daily. fenofibrate (LOFIBRA) 134 mg capsule Take 134 mg by mouth once daily. Aspirin 81 mg tab 81 mg every other day. REVIEW OF SYSTEMS: PAIN ASSESSMENT: Negative for pain, history of chronic pain, or current treatment for a chronic pain condition. NECK: Negative for goiter, pain or significant neck swelling RESPIRATORY: Negative for cough, hemoptysis, wheezing, COPD, dyspnea or shortness of breath CARDIOVASCULAR: Negative for chest pain, leg swelling, hypertension, CHF or palpitations GI: No nausea, vomiting, or diarrhea : No history of dysuria, frequency or incontinence MUSCULOSKELETAL: Negative for joint pain or swelling, back pain or muscle pain NEURO: No history of headaches, syncope, paralysis, seizures or tremors The remainder of the review of systems is negative. PHYSICAL EXAM: 11/06/23 0951 BP: 163/77 Pulse: (!) 58 Resp: 16 Temp: 36.2 ?C (97.1 ?F) SpO2: 99% Weight: 88.4 kg (194 lb 14.2 oz) KPS: 100 General Appearance: Well appearing, alert, in no acute distress, well-hydrated, well nourished.. Skin: Skin color, texture, turgor normal, no suspicious rashes or lesions. Oropharynx: Lips, mu (more content not included)... 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 INTERVAL HISTORY: Doing well. Eating fairly well. Has some mild issues with phlegm, no hemoptysis. No fever. Energy level good. No neck pain or otalgia. LABORATORY: Latest Reference Range & Units 10/16/23 10:46 10/23/23 10:52 Free T4 0.9 - 1.7 ng/dL 1.2 TSH 0.270 - 4.200 mIU/L 2.750 T3 79 - 165 ng/dL 93 WBC 3.70 - 11.00 k/uL 3.08 (L) RBC 4.20 - 6.00 m/uL 4.18 (L) Hemoglobin 13.0 - 17.0 g/dL 12.6 (L) Hematocrit 39.0 - 51.0 % 37.9 (L) Platelet Count 150 - 400 k/uL 183 MCV 80.0 - 100.0 fL 90.7 MCH 26.0 - 34.0 pg 30.1 MCHC 30.5 - 36.0 g/dL 33.2 MPV 9.0 - 12.7 fL 9.1 RDW-CV 11.5 - 15.0 % 13.8 DTYPE Auto Neut% % 71.2 Abs Neut (ANC) 1.45 - 7.50 k/uL 2.19 Lymph% % 15.6 Abs Lymph 1.00 - 4.00 k/uL 0.48 (L) [place]% % 10.4 Abs [place] <0.87 k/uL 0.32 Eosin% % 1.6 Abs Eosin <0.46 k/uL 0.05 Baso% % 0.6 Abs Baso <0.11 k/uL <0.03 Immature Gran % % 0.6 IMMATURE GRANS (ABS) <0.10 k/uL <0.03 NRBC /100 WBC 0.0 Absolute nRBC <0.01 k/uL <0.01 (L): Data is abnormally low RADIOLOGY: CT Neck 10/16/23: IMPRESSION: Primary: NI-RADS 1. Expected post-treatment changes in the neck without evidence of recurrent disease in the primary site. Neck: NI-RADS 1. No evidence of abnormal lymph nodes. CT Chest 10/16/23: 1. Stable appearance of patchy groundglass opacities in the left upper lobe. Stable 4 mm nodular opacity along the right major fissure. No new or enlarging nodules are seen. 2. Stable mildly prominent subcarinal node. No new bulky intrathoracic adenopathy. CT Chest 03/14/23: 1. On patient's prior PET/CT from 01/29/2023, there was a 2.3 x 2.2 cm solid hypermetabolic nodule in the anterior right upper lobe. On today's exam, this is moderately to markedly decreased in density and now represents an area of groundglass opacity measuring over an area of approximately 2.3 x 2.2 cm in size. If this has not undergone interval treatment, then this may represent an infectious/inflammatory focus which is improving. There is an adjacent subcentimeter nodule which is also decreased in density. Finally, there is a 3 mm solid nodule in the anterior right lower lobe which was not clearly seen on the prior PET/CT. However, differences in technique limit the comparison. Would advise continued imaging follow-up with the next chest CT in 3 months. PET/CT 01/29/2023:1. Neck: No suspicious hypermetabolic foci. Posttreatment change. 2. Chest: New hypermetabolic right upper lobe lung nodule. Differential includes inflammatory/neoplastic process. 3. Abdomen and pelvis: No evidence of FDG avid neoplastic process 4. Skeleton: No hypermetabolic osseous lesions ALLERGIES No Known Allergies MEDICATIONS: cholecalciferol, Vitamin D3, (VITAMIN D3) 1,250 mcg (50,000 unit) cap capsule Take 1 capsule by mouth one time a week. latanoprost (XALATAN) 0.005 % ophthalmic solution instill 1 (ONE) DROP IN BOTH EYES AT BEDTIME ergocalciferol 50,000 unit capsule (VITAMIN D2, DRISDOL) TAKE 1 CAPSULE BY MOUTH WEEKLY metFORMIN (GLUCOPHAGE) 500 mg tablet Take 500 mg by mouth once daily. metoprolol succinate ER (TOPROL XL) 25 mg 24 hr tablet Take 25 mg by mouth once daily. fenofibrate (LOFIBRA) 134 mg capsule Take 134 mg by mouth once daily. Aspirin 81 mg tab 81 mg every other day. REVIEW OF SYSTEMS: PAIN ASSESSMENT: Negative for pain, history of chronic pain, or current treatment for a chronic pain condition. NECK: Negative for goiter, pain or significant neck swelling RESPIRATORY: Negative for cough, hemoptysis, wheezing, COPD, dyspnea or shortness of breath CARDIOVASCULAR: Negative for chest pain, leg swelling, hypertension, CHF or palpitations GI: No nausea, vomiting, or diarrhea : No history of dysuria, frequency or incontinence MUSCULOSKELETAL: Negative for joint pain or swelling, back pain or muscle pain NEURO: No history of headaches, syncope, paralysis, seizures or tremors The remainder of the review of systems is negative. PHYSICAL EXAM: 11/06/23 0951 BP: 163/77 Pulse: (!) 58 Resp: 16 Temp: 36.2 C (97.1 F) SpO2: 99% Weight: 88.4 kg (194 lb 14.2 oz) KPS: 100 General Appearance: Well appearing, alert, in no acute distress, well-hydrated, well nourished.. Skin: Skin color, texture, turgor normal, no suspicious rashes or lesions. Oropharynx: Lips, mucosa, and tongue normal, teeth and gums normal, oropharynx normal. Neck: Supple, no adenopathy or masses Lungs: Lungs clear to auscultation. No wheezing, rhonchi, rales.. Neurologic: Gait normal. Reflexes normal and symmetric. Sensation grossly intact.. Lymph Nodes: No cervical lymphadenopathy, No supraclavicular lymphadenopathy, No axillary lymphadenopathy. 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 1. Oropharyngeal cancer. Doing well. No evidence of recurrence clinically or radiographically. He continues close follow-up with Dr. Morales. 2. Lung nodule most recent CT showing stable appearing small lesion. No new lesions. No adenopathy. Signed by: Yordan Feliz MD cc: Dr. Shaikh Vidal Estrada [address] [place] [id number] documented in this encounter [facility] 10-23-2023 Note HNO ID: [id number] Author: JOHN ENGLAND MD Service: ? Author Type: Physician Type: Progress Notes Filed: 10/23/2023 22:31 Note Text: NAME: Root [facility] NO.: [id number] DATE OF SERVICE: October 23, 2023 (Jacquelyn) Some elements in this clinic note that are critical to medical decision making have been carefully reviewed and included from a prior clinic note dated: June 19, 2023 (Jacquelyn) Referring Provider: Dr. Татьяна Feliz Additional Clinicians involved in Manish Root's care: Serene Morales DIAGNOSIS: Base of Tongue squamous cell ca. ASSESSMENT: 77 year old man with base of tongue squamous cell carcinoma, p16 positive, in July 2022 following voice changes in June 2022. He has a prior history of colon cancer in 1999. July 31, 2022 - Stage : T3 N1a M0 Completed treatment and is eating better. Neutropenia resolved. January 2023 PET with right lung lesion - repeat imaging with CT chest @ 6 weeks March 2023 showed involution of the lesion and now only ground glass opacity. PLAN: CT Neck and Chest in 6 months Labs same day, include anemia workup RTC 1 week after to review HPI: CASE HISTORY: Reverse Chronological Order 10/16/2023 - CT Neck AND Chest: Neck: NI-RADS 1. Expected post-treatment changes in the neck without evidence of recurrent disease in the primary site. No evidence of abnormal lymph nodes. Chest: Stable appearance of patchy groundglass opacities in the left upper lobe. Stable 4 mm nodular opacity along the right major fissure. No new or enlarging nodules are seen. Stable mildly prominent subcarinal node. No new bulky intrathoracic adenopathy. 06/12/2023 - CT Chest - Since 03/14/2023, near complete resolution of right upper lobe mass/groundglass opacification New patchy regions of groundglass opacification within the anterior left upper lobe, compatible with new sites of infection/inflammation. 03/14/2023 - CT Chest - On patient's prior PET/CT from 01/29/2023, there was a 2.3 x 2.2 cm solid hypermetabolic nodule in the anterior right upper lobe. On today's exam, this is moderately to markedly decreased in density and now represents an area of groundglass opacity measuring over an area of approximately 2.3 x 2.2 cm in size. If this has not undergone interval treatment, then this may represent an infectious/inflammatory focus which is improving. There is an adjacent subcentimeter nodule which is also decreased in density. Finally, there is a 3 mm solid nodule in the anterior right lower lobe which was not clearly seen on the prior PET/CT. 01/29/2023 - PET/CT Chest: New hypermetabolic right upper lobe lung nodule. Differential includes inflammatory /neoplastic process 09/03/2022 - 10/08/2022 - Cisplatin total dose 240 mg/m2 with RT 07/31/2022 - Examination under anesthesia/panendoscopy. Findings included a friable exophytic mass left base of tongue extending into the vallecula. No other significant findings on laryngoscopy. 07/27/2022 - CT neck with contrast: Demonstrated a 5 x 4.5 x 2.5 cm mass arising from the left base of tongue injecting into the hypopharynx and displacing the epiglottis posterior and inferior with narrowing of the hypopharynx. In addition a level 2 left-sided lymph node measuring 1.7 x 1.0 x 1.0 cm suspicious for metastatic disease. 06/2022 - voice changed and trouble swallowing. 02/2022 - started losing weight 1999 - Colon Ca Stage 3 - 2/5 LN + Hatton regimen on protocol Updated Visit, October 23, 2023: Manish returns today with Jahaira. We discussed he recent CT scans - both appear stable. He has been continuing follow up with Dr. Morales, so we can space out his visits with me. Kidney function stable, WBC is lower and he is more anemic than in the past. He endorses drinking more water recently. Updated Visit, June 19, 2023: Manish presents with his Jahaira. He is doing well. Reviewed his scans with him and not new changes with prior resolution of abnormalities. Kidney function remains decreased but he doesn't drink much water ever. Updated Visit, March 20, 2023: Feels great and has recovered from upper respiratory infection. Reviewed CT and showed improvement. Updated Visit, February 06, 2023: Doing ok but has productive cough and vocal changes Reviewed PET showing a new consolidation in right lung that could be infectious / malignant. Will repeat CT Chest. He is anxious. Updated Visit, November 07, 2022: Manish returns with Jahaira. Eating is much better but taste is not back. Neutropenia resolved. Updated Visit, October 31, 2022: Manish Root returns for follow-up. He still altered taste. He has no sense for sweet foods. He continues to have intermittent mouth dryness. He denies mouth sores. His weight is over all stable. He denies fevers, chills, night sweats and (more content not included)... [facility] 10-23-2023 Instructions Kelli Merchant - 10/23/2023 11:[address] Neck and Chest in 6 months Labs same day, include anemia workup RTC 1 week after to review documented in this encounter [facility] 10-23-2023 History of Presen t illness Narrative Images from the original note were not included. NAME: Manish Root [facility] NO.: [id number] DATE OF SERVICE: October 23, 2023 ([facility]) Some elements in this clinic note that are critical to medical decision making have been carefully reviewed and included from a prior clinic note dated: June 19, 2023 (Jacquelyn) Referring Provider: Dr. Татьяна Feliz Additional Clinicians involved in Manish Root's care: Serene Morales DIAGNOSIS: Base of Tongue squamous cell ca. ASSESSMENT: 77 year old man with base of tongue squamous cell carcinoma, p16 positive, in July 2022 following voice changes in June 2022. He has a prior history of colon cancer in 1999. July 31, 2022 - Stage : T3 N1a M0 Completed treatment and is eating better. Neutropenia resolved. January 2023 PET with right lung lesion - repeat imaging with CT chest @ 6 weeks March 2023 showed involution of the lesion and now only ground glass opacity. PLAN: CT Neck and Chest in 6 months Labs same day, include anemia workup RTC 1 week after to review HPI: CASE HISTORY: Reverse Chronological Order 10/16/2023 - CT Neck & Chest: Neck: NI-RADS 1. Expected post-treatment changes in the neck without evidence of recurrent disease in the primary site. No evidence of abnormal lymph nodes. Chest: Stable appearance of patchy groundglass opacities in the left upper lobe. Stable 4 mm nodular opacity along the right major fissure. No new or enlarging nodules are seen. Stable mildly prominent subcarinal node. No new bulky intrathoracic adenopathy. 06/12/2023 - CT Chest - Since 03/14/2023, near complete resolution of right upper lobe mass/groundglass opacification New patchy regions of groundglass opacification within the anterior left upper lobe, compatible with new sites of infection/inflammation. 03/14/2023 - CT Chest - On patient's prior PET/CT from 01/29/2023, there was a 2.3 x 2.2 cm solid hypermetabolic nodule in the anterior right upper lobe. On today's exam, this is moderately to markedly decreased in density and now represents an area of groundglass opacity measuring over an area of approximately 2.3 x 2.2 cm in size. If this has not undergone interval treatment, then this may represent an infectious/inflammatory focus which is improving. There is an adjacent subcentimeter nodule which is also decreased in density. Finally, there is a 3 mm solid nodule in the anterior right lower lobe which was not clearly seen on the prior PET/CT. 01/29/2023 - PET/CT Chest: New hypermetabolic right upper lobe lung nodule. Differential includes inflammatory /neoplastic process 09/03/2022 - 10/08/2022 - Cisplatin total dose 240 mg/m2 with RT 07/31/2022 - Examination under anesthesia/panendoscopy. Findings included a friable exophytic mass left base of tongue extending into the vallecula. No other significant findings on laryngoscopy. 07/27/2022 - CT neck with contrast: Demonstrated a 5 x 4.5 x 2.5 cm mass arising from the left base of tongue injecting into the hypopharynx and displacing the epiglottis posterior and inferior with narrowing of the hypopharynx. In addition a level 2 left-sided lymph node measuring 1.7 x 1.0 x 1.0 cm suspicious for metastatic disease. 06/2022 - voice changed and trouble swallowing. 02/2022 - started losing weight 1999 - Colon Ca Stage 3 - 2/5 LN + Hat[place] regimen on protocol Updated Visit, October 23, 2023: Manish returns today with Jahaira. We discussed he recent CT scans - both appear stable. He has been continuing follow up with Dr. Morales, so we can space out his visits with me. Kidney function stable, WBC is lower and he is more anemic than in the past. He endorses drinking more water recently. Updated Visit, June 19, 2023: Manish presents with his Jahaira. He is doing well. Reviewed his scans with him and not new changes with prior resolution of abnormalities. Kidney function remains decreased but he doesn't drink much water ever. Updated Visit, March 20, 2023: Feels great and has recovered from upper respiratory infection. Reviewed CT and showed improvement. Updated Visit, February 06, 2023: Doing ok but has productive cough and vocal changes Reviewed PET showing a new consolidation in right lung that could be infectious / malignant. Will repeat CT Chest. He is anxious. Updated Visit, November 07, 2022: Manish returns with Jaahira. Eating is much better but taste is not back. Neutropenia resolved. Updated Visit, October 31, 2022: Manish Root returns for follow-up. He still altered taste. He has no sense for sweet foods. He continues to have intermittent mouth dryness. He denies mouth sores. His weight is over all stable. He denies fevers, chills, night sweats and signs/symptoms of infection. He complains of increase in phlegm production Updated Visit, October 25, 2022: Manish Root returns for follow-up. He received Neupogen 400 mcg on 10/19/2022. He remains on Cipro prophylaxis. He denies fevers, chills, night sweats and signs/symptoms of infection. No bleeding. He has some bruising. He states that everything tastes terrible. He complains of dry mouth. He denies any difficulty swallowing. Updated Visit, October 19, 2022: Manish returns with Jahaira and is doing well. Feeling better but is neutropenic from chemotherapy. Really re-inforced education regarding neutropenia and fevers. Updated Visit, October 01, 2022: Manish Root returns for follow-up and treatment. He remains on weekly cisplatin concurrent with radiation and overall is tolerating fairly well. He has 14 radiation treatments remaining. He states that he has no taste. He does not eat and drink enough. He denies difficulty swallowing. He denies any unusual pain. He has occasional nausea and takes the prescribed antiemetics. His weight is down. He states that he has a sinus infection and gets these regularly. He is typically treated by Dr. Nelson. He is requesting an antibiotic be called into his pharmacy. He denies fevers. Overall he is doing fairly well and wishes to proceed with treatment as planned. Updated Visit, September 10, 2022: Doing well. No side effects. Noted some improvement in ability to swallow and has gained 2 lbs. Lbas safe to continue. Updated Visit, September 03, 2022: Manish returns with his Jahaira. Ready to start chemo + RT - RT started. Ready for cisplatin. Initial Visit, August 16, 2022: Manish Root presents today Hematology and Oncology evaluation. He is a 76 year old male who presents with his significant other named Jahaira. 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 REVIEW OF SYSTEMS Per HPI and otherwise negative by full review of organ systems. ECOG PERFORMANCE STATUS: 0 PHYSICAL EXAMINATION: Vitals: BP 144/70 Pulse 54 Temp (Src) 97.8 (Temporal) Resp 16 Ht 5' 5.709 (1.67m) Wt 192 lb 14.4 oz (87.5kg) SpO2 98% BMI 31.41 kg/(m^2). Body surface area is 2.01 meters squared. Exam limited to gross visualization where appropriate. Gen.: This is an age-appropriate patient in no acute distress. Head: Appears atraumatic with no visible lesions. Eyes: Pupils equally round and reactive to light, extraocular muscles are intact. Neck: Supple. Mouth: Masked. Respiratory: Appears to be respiring comfortably. Neurologic: Nonfocal to gross visualization. Alert and oriented 3. Psychiatric: No evidence of inappropriate anxiety or depression. Skin: Visible areas of skin without rash, lesions, wounds or petechiae. ALLERGIES: ALLERGIES No Known Allergies MEDICATIONS: cholecalciferol, Vitamin D3, (VITAMIN D3) 1,250 mcg (50,000 unit) cap capsule Take 1 capsule by mouth one time a week. latanoprost (XALATAN) 0.005 % ophthalmic solution instill 1 (ONE) DROP IN BOTH EYES AT BEDTIME ergocalciferol 50,000 unit capsule (VITAMIN D2, DRISDOL) TAKE 1 CAPSULE BY MOUTH WEEKLY metFORMIN (GLUCOPHAGE) 500 mg tablet Take 500 mg by mouth once daily. metoprolol succinate ER (TOPROL XL) 25 mg 24 hr tablet Take 25 mg by mouth once daily. fenofibrate (LOFIBRA) 134 mg capsule Take 134 mg by mouth once daily. Aspirin 81 mg tab 81 mg every other day. iv contrast (will be provided with radiology test) Inject 1 Each intravenously one time only for [address] Neck W IVCON No IV access, insert saline lock prior to the sedation, infusion, injection for imaging exam. Discontinue saline lock post exam. If Pt. has a central line or IVAD, may access for administration according to line specific nursing protocol. Once exam is complete flush line and de-access according to line specific nursing protocol in the CT contrast administration guidelines link. iv contrast (will be provided with radiology test) CT Chest W -Inject, intravenously, once for 1 dose.No IV access, insert saline lock prior to the beginning of sedation, infusion, injection of imaging exam. Discontinue saline lock post exam. If Pt. has a central line or IVAD, may access for administration according to line specific nursing protocol. Once exam is complete flush line and de-access according to line specific nursing protocol in the CT contrast administration guidelines link. LABORATORY VALUES: WBC (k/uL) Date Value 10/16/2023 3.08 (L) RBC (m/uL) Date Value 10/16/2023 4.18 (L) Hemoglobin (g/dL) Date Value 10/16/2023 12.6 (L) Hematocrit (%) Date Value 10/16/2023 37.9 (L) MCV (fL) Date Value 10/16/2023 90.7 MCH (pg) Date Value 10/16/2023 30.1 MCHC (g/dL) Date Value 10/16/2023 33.2 RDW-CV (%) Date Value 10/16/2023 13.8 Platelet Count (k/uL) Date Value 10/16/2023 183 MPV (fL) Date Value 10/16/2023 9.1 Glucose (mg/dL) Date Value 10/16/2023 135 (H) BUN (mg/dL) Date Value 10/16/2023 22 Creatinine (mg/dL) Date Value 10/16/2023 1.34 (H) Sodium (mmol/L) Date Value 10/16/2023 142 Potassium (mmol/L) Date Value 10/16/2023 4.5 Chloride (mmol/L) Date Value 10/16/2023 105 CO2 (mmol/L) Date Value 10/16/2023 26 Protein, Total (g/dL) Date Value 10/16/2023 6.7 Albumin (g/dL) Date Value 10/16/2023 4.4 Calcium, Total (mg/dL) Date Value 10/16/2023 9.7 Alkaline Phosphatase (U/L) Date Value 10/16/2023 48 Bilirubin, Total (mg/dL) Date Value 10/16/2023 0.5 AST (U/L) Date Value 10/16/2023 15 ALT (U/L) Date Value 10/16/2023 13 Cholesterol, Total (mg/dL) Date Value 02/06/2023 168 Triglyceride (mg/dL) Date Value 02/06/2023 89 DIAGNOSIS: (C01) 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) (primary encounter diagnosis) Plan: CT NECK SOFT TISSUE W IVCON, iv contrast (will be provided with radiology test), CT CHEST W IVCON, iv contrast (will be provided with radiology test), COMPLETE BLOOD COUNT AND DIFFERENTIAL, COMPREHENSIVE METABOLIC PANEL, IRON AND TIBC, FERRITIN, VITAMIN B12, FOLATE, SERUM (R91.8) Lung nodules Plan: CT NECK SOFT TISSUE W IVCON, iv contrast (will be provided with radiology test), CT CHEST W IVCON, iv contrast (will be provided with radiology test), COMPLETE BLOOD COUNT AND DIFFERENTIAL, COMPREHENSIVE METABOLIC PANEL, IRON AND TIBC, FERRITIN, VITAMIN B12, FOLATE, SERUM PAST MEDICAL HISTORY Diagnosis Date 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) 08/21/2022 Chemotherapy-induced neutropenia (HCC) 10/19/2022 Diabetes mellitus (HCC) HTN (hypertension) PAST SURGICAL HISTORY Procedure Laterality Date LAPAROSCOPIC HEMICOLECTOMY PAST SURGICAL HISTORY OF Cardiac stent placement Social History Tobacco Use Smoking status: Never Passive exposure: Never Smokeless tobacco: Never Vaping Use Vaping Use: Never used Substance Use Topics Alcohol use: Yes Comment: daily 3 beers Drug use: Not Currently No family history on file. I spent a total of 30 minutes on the date of the service which included preparing to see the patient, [id number] patient care, completing clinical documentation, performing a medically appropriate examination, counseling and educating the patient/family/caregiver, ordering medications, tests, or procedures, independently interpreting results (not separately reported), communicating results to the patient/family/caregiver, and care coordination (not separately reported). John England MD, CPE Hematology and Oncology Services Provided at: [place], [place] Scribe Attestation: This note was scribed by Kelli Merchant on October 23, 2023 under the direction and supervision of Dr. John England. I attest that all of the information documented is correct to the best of my knowledge. Provider Attestation: I, John England MD, attest that all information documented by the above scribe is correct, and was supervised by me and under my direction. CC: Dr. Yordan Morales documented in this encounter [facility] 10-16-2023 Miscellaneous Notes Pt had labs drawn today. Requests that the results be faxed to his PCP, Dr Drake. Results of CBC and CMP faxed to [phone]. Rafael Meng, [place] documented in this encounter [facility] 10-16-2023 Note HNO ID: [id number] Author: RAFAEL ZURITA RT(R) Service: ? Author Type: Technologist Type: Progress Notes Filed: 10/16/2023 11:34 Note Text: Radiology Service Progress Note PATIENT NAME: Manish Root DATE OF SERVICE: October 16, 2023 TIME: 11:34 AM PATIENT IDENTITY VERIFICATION COMPLETED USING TWO (2) IDENTIFIERS: Name and Date of confirmed by patient verbally. FALL SCREENING: Has the patient had 2 falls in the last year or 1 fall with injury or currently using an Ambulatory Assistive Device (Walker, Cane, Wheelchair, Crutches, etc.)? 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 Author Type: Physician Type: Progress Notes Filed: 06/20/2023 8:01 AM Note Text: NAME: Manish Root [facility] NO.: [id number] DATE OF SERVICE: June 19, 2023 (Jacquelyn) Some elements in this clinic note that are critical to medical decision making have been carefully reviewed and included from a prior clinic note dated: March 20, 2023 (Jacquelyn) Referring Provider: Dr. Татьяна Feliz Additional Clinicians involved in Manish Root's care: Serene Lana DIAGNOSIS: Base of Tongue squamous cell ca. 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 He has a prior history of colon cancer in 1999. July 31, 2022 - Stage : T3 N1a M0 Completed treatment and is eating better. Neutropenia resolved. January 2023 PET with right lung lesion - repeat imaging with CT chest @ 6 weeks March 2023 showed involution of the lesion and now only ground glass opacity. PLAN: CT Neck and Chest in 4 months Labs same day RTC 1 week after to review. HPI: CASE HISTORY: Reverse Chronological Order 06/12/2023 - CT Chest - Since 03/14/2023, near complete resolution of right upper lobe mass/groundglass opacification New patchy regions of groundglass opacification within the anterior left upper lobe, compatible with new sites of infection/inflammation. 03/14/2023 - CT Chest - 1. On patient's prior PET/CT from 01/29/2023, there was a 2.3 x 2.2 cm solid hypermetabolic nodule in the anterior right upper lobe. On today's exam, this is moderately to markedly decreased in density and now represents an area of groundglass opacity measuring over an area of approximately 2.3 x 2.2 cm in size. If this has not undergone interval treatment, then this may represent an infectious/inflammatory focus which is improving. There is an adjacent subcentimeter nodule which is also decreased in density. Finally, there is a 3 mm solid nodule in the anterior right lower lobe which was not clearly seen on the prior PET/CT. 01/29/2023 - PET/CT Chest: New hypermetabolic right upper lobe lung nodule. Differential includes inflammatory /neoplastic process 09/03/2022 - 10/08/2022 - Cisplatin total dose 240 mg/m2 with RT 07/31/2022 examination under anesthesia/panendoscopy. Findings included a friable exophytic mass left base of tongue extending into the vallecula. No other significant findings on laryngoscopy. 07/27/2022 CT neck: with contrast which demonstrated a 5 x 4.5 x 2.5 cm mass arising from the left base of tongue injecting into the hypopharynx and displacing the epiglottis posterior and inferior with narrowing of the hypopharynx. In addition a level 2 left-sided lymph node measuring 1.7 x 1.0 x 1.0 cm suspicious for metastatic disease. June 2022 - voice changed and trouble swallowing. February 2022 - started losing weight 1999 - Colon Ca Stage 3 - 2/5 LN + Hat[place] regimen on protocol Updated Visit, June 19, 2023: Manish presents with his Jahaira. He is doing well. Reviewed his scans with him and not new changes with prior resolution of abnormalities. Kidney function remains decreased but he doesn't drink much water ever. Updated Visit, March 20, 2023: Feels great and has recovered from upper respiratory infection. Reviewed CT and showed improvement. Updated Visit, February 06, 2023: Doing ok but has productive cough and vocal changes Reviewed PET showing a new consolidation in right lung that could be infectious / malignant. Will repeat CT Chest. He is anxious. Updated Visit, November 07, 2022: Manish returns with Jahaira. Eating is much better but taste is not back. Neutropenia resolved. Updated Visit, October 31, 2022: Manish Root returns for follow-up. He still altered taste. He has no sense for sweet foods. He continues to have intermittent mouth dryness. He denies mouth sores. His weight is over all stable. He denies fevers, chills, night sweats and signs/symptoms of infection. He complains of increase in phlegm production Updated Visit, October 25, 2022: Manish Root returns for follow-up. He received Neupogen 400 mcg on 10/19/2022. He remains on Cipro prophylaxis. He denies fevers, chills, night sweats and signs/symptoms of infection. No bleeding. He has some bruising. He states that everything tastes terrible. He complains of dry mouth. He denies any difficulty swallowing. Updated Visit, October 19, 2022: Manish returns with Jahaira and is doing well. Feeling better but is neutropenic from chemotherapy. Really re-inforced education regarding neutropenia and fevers. Updated Visit, October 01, 2022: Manish Root returns for follow-up and treatment. He remains on weekly cisplatin concurrent with radiation and (more content not included)... [facility] 06-12-2023 Note HNO ID: [id number] Author: Rafael Zurita, RT(R) Service: ? Author Type: Technologist Type: Progress Notes Filed: 06/12/2023 8:18 AM Note Text: Radiology Service Progress Note PATIENT NAME: Manish Root DATE OF SERVICE: June 12, 2023 TIME: 8:18 AM PATIENT IDENTITY VERIFICATION COMPLETED USING TWO (2) IDENTIFIERS: Name and Date of confirmed by patient verbally. FALL SCREENING: Has the patient had 2 falls in the last year or 1 fall with injury or currently using an Ambulatory Assistive Device (Walker, Cane, Wheelchair, Crutches, etc.)? No PATIENT GENDER DATA: Male PATIENT RELEVANT IMPLANT DATA REVIEWED: Not Applicable RADIOLOGY DEPARTMENT: CT; Exam(s) Completed: Chest PERIPHERAL IV DATA: Site assessment: Clean,Dry and Intact, Site disposition Discontinued SIGNED BY: Rafael Zurita RT(R) June 12, 2023 8:18 AM [facility] 06-12-2023 Note HNO ID: [id number] Author: Gisela Ruiz RN Service: ? Author Type: Registered Nurse Type: Progress Notes Filed: 06/12/2023 8:08 AM Note Text: Radiology Service Progress Note DATE OF SERVICE: June 12, 2023 TIME: 8:07 AM PATIENT WEIGHT: 180LBS PATIENT IDENTITY VERIFICATION COMPLETED USING TWO (2) STANDARD IDENTIFIERS: Name and Date of confirmed by patient verbally. FALL SCREENING: Has the patient had 2 falls in the last year or 1 fall with injury or currently using an Ambulatory Assistive Device (Walker, Cane, Wheelchair, Crutches, etc.)? No PATIENT GENDER DATA: Male ALLERGIES: Reviewed and unchanged CONTRAST ALLERGY: No EXAM: CT -CONTRAST INDUCED NEPHROPATHY RISK FACTORS: Not applicable CREATININE: Creatinine Date Value Ref Range Status 06/11/2023 1.30 (H) 0.73 - 1.22 mg/dL Final 02/06/2023 1.20 0.73 - 1.22 mg/dL Final 11/07/2022 1.07 0.73 - 1.22 mg/dL Final Estimated Glomerular Filtration Rate Date Value Ref Range Status 06/11/2023 56 (L) >=60 mL/min/1.73m? Final Comment: Estimated Glomerular Filtration Rate (eGFR) is calculated using the 2020 CKD-EPI creatinine equation. This equation utilizes serum creatinine, sex, and age as parameters. The creatinine assay has traceable calibration to isotope dilution-mass spectrometry. Refer to KDIGO guidelines for clinical interpretation. In patients with unstable renal function, e.g. those with acute kidney injury, the eGFR may not accurately reflect actual GFR. P.O.C.T. RESULTS: POC done: Yes, See Lab Tab June 12, 2023 TREATMENT: N/A and No Hydration needed. IV SITE: Ambulatory: A peripheral IV was started in the Right antecubital site with a Angio cath: 20 gauge. IV SITE APPEARANCE: Clean,Dry and Intact SIGNATURE: Gisela Ruiz RN PATIENT NAME: Manish Root DATE: June 12, 2023 TIME: 8:07 AM [facility] 05-08-2023 Note HNO ID: [id number] Author: Yordan Feliz MD Service: ? 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 INTERVAL HISTORY: Doing well. Eating fairly well. Some mild taste issues. Mild dry mouth. No other new problems or concerns. RADIOLOGY: CT Chest 03/14/23: 1. On patient's prior PET/CT from 01/29/2023, there was a 2.3 x 2.2 cm solid hypermetabolic nodule in the anterior right upper lobe. On today's exam, this is moderately to markedly decreased in density and now represents an area of groundglass opacity measuring over an area of approximately 2.3 x 2.2 cm in size. If this has not undergone interval treatment, then this may represent an infectious/inflammatory focus which is improving. There is an adjacent subcentimeter nodule which is also decreased in density. Finally, there is a 3 mm solid nodule in the anterior right lower lobe which was not clearly seen on the prior PET/CT. However, differences in technique limit the comparison. Would advise continued imaging follow-up with the next chest CT in 3 months. PET/CT 01/29/2023:1. Neck: No suspicious hypermetabolic foci. Posttreatment change. 2. Chest: New hypermetabolic right upper lobe lung nodule. Differential includes inflammatory/neoplastic process. 3. Abdomen and pelvis: No evidence of FDG avid neoplastic process 4. Skeleton: No hypermetabolic osseous lesions ALLERGIES No Known Allergies MEDICATIONS: latanoprost (XALATAN) 0.005 % ophthalmic solution instill 1 (ONE) DROP IN BOTH EYES AT BEDTIME ergocalciferol 50,000 unit capsule (VITAMIN D2, DRISDOL) TAKE 1 CAPSULE BY MOUTH WEEKLY metFORMIN (GLUCOPHAGE) 500 mg tablet Take 500 mg by mouth as directed. 1 AM/1 PM metoprolol succinate ER (TOPROL XL) 25 mg 24 hr tablet Take 25 mg by mouth once daily. fenofibrate (LOFIBRA) 134 mg capsule Take 134 mg by mouth once daily. Aspirin 81 mg tab 81 mg every other day. REVIEW OF SYSTEMS: PAIN ASSESSMENT: Negative for pain, history of chronic pain, or current treatment for a chronic pain condition. NECK: Negative for goiter, pain or significant neck swelling RESPIRATORY: Negative for cough, hemoptysis, wheezing, COPD, dyspnea or shortness of breath CARDIOVASCULAR: Negative for chest pain, leg swelling, hypertension, CHF or palpitations GI: No nausea, vomiting, or diarrhea : No history of dysuria, frequency or incontinence MUSCULOSKELETAL: Negative for joint pain or swelling, back pain or muscle pain NEURO: No history of headaches, syncope, paralysis, seizures or tremors The remainder of the review of systems is negative. PHYSICAL EXAM: 05/08/23 1114 BP: 168/104 Pulse: (!) 58 Resp: 16 Temp: 36.2 ?C (97.1 ?F) SpO2: 98% Weight: 80.2 kg (176 lb 12.8 oz) KPS: 100 General Appearance: Well appearing, alert, in no acute distress, well-hydrated, well nourished.. Skin: Skin color, texture, turgor normal, no suspicious rashes or lesions. Oropharynx: Lips, mucosa, and tongue normal, teeth and gums normal, oropharynx normal. Neck: Supple, no adenopathy or masses Lungs: Lungs clear to auscultation. No wheezing, rhonchi, rales.. Neurologic: Gait normal. Reflexes normal and symmetric. Sensation grossly intact.. Lymph Nodes: No cervical lymphadenopathy, No supraclavicular lymphadenopathy, No axillary lymphadenopathy. 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 1. Oropharyngeal cancer. Doing well. No evidence of recurrence clinically or radiographically. He continues close follow-up with Dr. Morales. 2. Lung nodule most recent CT with decreased size indicating likely benign or infectious cause. He has at least 1 other small nodule that was stable, and has continued imaging scheduled. Signed by: Yordan Feliz MD cc: Dr. 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 INTERVAL HISTORY: Doing well. Eating fairly well. Some mild taste issues. Mild dry mouth. No other new problems or concerns. RADIOLOGY: CT Chest 03/14/23: 1. On patient's prior PET/CT from 01/29/2023, there was a 2.3 x 2.2 cm solid hypermetabolic nodule in the anterior right upper lobe. On today's exam, this is moderately to markedly decreased in density and now represents an area of groundglass opacity measuring over an area of approximately 2.3 x 2.2 cm in size. If this has not undergone interval treatment, then this may represent an infectious/inflammatory focus which is improving. There is an adjacent subcentimeter nodule which is also decreased in density. Finally, there is a 3 mm solid nodule in the anterior right lower lobe which was not clearly seen on the prior PET/CT. However, differences in technique limit the comparison. Would advise continued imaging follow-up with the next chest CT in 3 months. PET/CT 01/29/2023:1. Neck: No suspicious hypermetabolic foci. Posttreatment change. 2. Chest: New hypermetabolic right upper lobe lung nodule. Differential includes inflammatory/neoplastic process. 3. Abdomen and pelvis: No evidence of FDG avid neoplastic process 4. Skeleton: No hypermetabolic osseous lesions ALLERGIES No Known Allergies MEDICATIONS: latanoprost (XALATAN) 0.005 % ophthalmic solution instill 1 (ONE) DROP IN BOTH EYES AT BEDTIME ergocalciferol 50,000 unit capsule (VITAMIN D2, DRISDOL) TAKE 1 CAPSULE BY MOUTH WEEKLY metFORMIN (GLUCOPHAGE) 500 mg tablet Take 500 mg by mouth as directed. 1 AM/1 PM metoprolol succinate ER (TOPROL XL) 25 mg 24 hr tablet Take 25 mg by mouth once daily. fenofibrate (LOFIBRA) 134 mg capsule Take 134 mg by mouth once daily. Aspirin 81 mg tab 81 mg every other day. REVIEW OF SYSTEMS: PAIN ASSESSMENT: Negative for pain, history of chronic pain, or current treatment for a chronic pain condition. NECK: Negative for goiter, pain or significant neck swelling RESPIRATORY: Negative for cough, hemoptysis, wheezing, COPD, dyspnea or shortness of breath CARDIOVASCULAR: Negative for chest pain, leg swelling, hypertension, CHF or palpitations GI: No nausea, vomiting, or diarrhea : No history of dysuria, frequency or incontinence MUSCULOSKELETAL: Negative for joint pain or swelling, back pain or muscle pain NEURO: No history of headaches, syncope, paralysis, seizures or tremors The remainder of the review of systems is negative. PHYSICAL EXAM: 05/08/23 1114 BP: 168/104 Pulse: (!) 58 Resp: 16 Temp: 36.2 C (97.1 F) SpO2: 98% Weight: 80.2 kg (176 lb 12.8 oz) KPS: 100 General Appearance: Well appearing, alert, in no acute distress, well-hydrated, well nourished.. Skin: Skin color, texture, turgor normal, no suspicious rashes or lesions. Oropharynx: Lips, mucosa, and tongue normal, teeth and gums normal, oropharynx normal. Neck: Supple, no adenopathy or masses Lungs: Lungs clear to auscultation. No wheezing, rhonchi, rales.. Neurologic: Gait normal. Reflexes normal and symmetric. Sensation grossly intact.. Lymph Nodes: No cervical lymphadenopathy, No supraclavicular lymphadenopathy, No axillary lymphadenopathy. 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 1. Oropharyngeal cancer. Doing well. No evidence of recurrence clinically or radiographically. He continues close follow-up with Dr. Morales. 2. Lung nodule most recent CT with decreased size indicating likely benign or infectious cause. He has at least 1 other small nodule that was stable, and has continued imaging scheduled. Signed by: Yordan Feliz MD cc: Dr. Shaikh Vidal Estrada [address] [place] [id number] documented in this encounter [facility] 03-20-2023 Note HNO ID: [id number] Author: John England MD Service: ? Author Type: Physician Type: Progress Notes Filed: 03/20/2023 1:24 PM Note Text: NAME: Manish Root [facility] NO.: [id number] DATE OF SERVICE: March 20, 2023 (Jacquelyn) Some elements in this clinic note that are critical to medical decision making have been carefully reviewed and included from a prior clinic note dated:February 06, 2023 (Jacquelyn) Referring Provider: Dr. Татьяна Feliz Additional Clinicians involved in Manish Root's care: Serene Morales DIAGNOSIS: Base of Tongue squamous cell ca. 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 He has a prior history of colon cancer in 1999. July 31, 2022 - Stage : T3 N1a M0 Completed treatment and is eating better. Neutropenia resolved. January 2023 PET with right lung lesion - repeat imaging with CT chest @ 6 weeks March 2023 showed involution of the lesion and now only ground glass opacity. PLAN: CT Chest in 3 months Labs same day RTC 1 week after to review. HPI: CASE HISTORY: Reverse Chronological Order 03/14/2023 - CT Chest - 1. On patient's prior PET/CT from 01/29/2023, there was a 2.3 x 2.2 cm solid hypermetabolic nodule in the anterior right upper lobe. On today's exam, this is moderately to markedly decreased in density and now represents an area of groundglass opacity measuring over an area of approximately 2.3 x 2.2 cm in size. If this has not undergone interval treatment, then this may represent an infectious/inflammatory focus which is improving. There is an adjacent subcentimeter nodule which is also decreased in density. Finally, there is a 3 mm solid nodule in the anterior right lower lobe which was not clearly seen on the prior PET/CT. 01/29/2023 - PET/CT Chest: New hypermetabolic right upper lobe lung nodule. Differential includes inflammatory /neoplastic process 09/03/2022 - 10/08/2022 - Cisplatin total dose 240 mg/m2 with RT 07/31/2022 examination under anesthesia/panendoscopy. Findings included a friable exophytic mass left base of tongue extending into the vallecula. No other significant findings on laryngoscopy. 07/27/2022 CT neck: with contrast which demonstrated a 5 x 4.5 x 2.5 cm mass arising from the left base of tongue injecting into the hypopharynx and displacing the epiglottis posterior and inferior with narrowing of the hypopharynx. In addition a level 2 left-sided lymph node measuring 1.7 x 1.0 x 1.0 cm suspicious for metastatic disease. June 2022 - voice changed and trouble swallowing. February 2022 - started losing weight 1999 - Colon Ca Stage 3 - 2/5 LN + [place] regimen on protocol Updated Visit, March 20, 2023: Feels great and has recovered from upper respiratory infection. Reviewed CT and showed improvement. Updated Visit, February 06, 2023: Doing ok but has productive cough and vocal changes Reviewed PET showing a new consolidation in right lung that could be infectious / malignant. Will repeat CT Chest. He is anxious. Updated Visit, November 07, 2022: Manish returns with Jahaira. Eating is much better but taste is not back. Neutropenia resolved. Updated Visit, October 31, 2022: Manish Root returns for follow-up. He still altered taste. He has no sense for sweet foods. He continues to have intermittent mouth dryness. He denies mouth sores. His weight is over all stable. He denies fevers, chills, night sweats and signs/symptoms of infection. He complains of increase in phlegm production Updated Visit, October 25, 2022: Manish Root returns for follow-up. He received Neupogen 400 mcg on 10/19/2022. He remains on Cipro prophylaxis. He denies fevers, chills, night sweats and signs/symptoms of infection. No bleeding. He has some bruising. He states that everything tastes terrible. He complains of dry mouth. He denies any difficulty swallowing. Updated Visit, October 19, 2022: Manish returns with Jahaira and is doing well. Feeling better but is neutropenic from chemotherapy. Really re-inforced education regarding neutropenia and fevers. Updated Visit, October 01, 2022: Manish Root returns for follow-up and treatment. He remains on weekly cisplatin concurrent with radiation and overall is tolerating fairly well. He has 14 radiation treatments remaining. He states that he has no taste. He does not eat and drink enough. He denies difficulty swallowing. He denies any unusual pain. He has occasional nausea and takes the prescribed antiemetics. His weight is down. He states that he has a sinus infection and gets these regularly. He is typically treated by Dr. Nelson. He is requesting an antibiotic be called into his pharmacy. He denies fevers. Overall he is doing fairly well and wishes to procee (more content not included)... [facility] 03-20-2023 Instructions John England MD - 03/20/2023 1:[address] Chest in 3 months Labs same day RTC 1 week after to review. documented in this encounter [facility] 03-20-2023 History of Presen t illness Narrative Images from the original note were not included. NAME: Manish Root CLINIC NO.: [id number] DATE OF SERVICE: March 20, 2023 (Jacquelyn) Some elements in this clinic note that are critical to medical decision making have been carefully reviewed and included from a prior clinic note dated:February 06, 2023 (Jacquelyn) Referring Provider: Dr. Татьяна Feliz Additional Clinicians involved in Manish Root's care: Serene Angelitaambika DIAGNOSIS: Base of Tongue squamous cell ca. 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 He has a prior history of colon cancer in 1999. July 31, 2022 - Stage : T3 N1a M0 Completed treatment and is eating better. Neutropenia resolved. January 2023 PET with right lung lesion - repeat imaging with CT chest @ 6 weeks March 2023 showed involution of the lesion and now only ground glass opacity. PLAN: CT Chest in 3 months Labs same day RTC 1 week after to review. HPI: CASE HISTORY: Reverse Chronological Order 03/14/2023 - CT Chest - 1. On patient's prior PET/CT from 01/29/2023, there was a 2.3 x 2.2 cm solid hypermetabolic nodule in the anterior right upper lobe. On today's exam, this is moderately to markedly decreased in density and now represents an area of groundglass opacity measuring over an area of approximately 2.3 x 2.2 cm in size. If this has not undergone interval treatment, then this may represent an infectious/inflammatory focus which is improving. There is an adjacent subcentimeter nodule which is also decreased in density. Finally, there is a 3 mm solid nodule in the anterior right lower lobe which was not clearly seen on the prior PET/CT. 01/29/2023 - PET/CT Chest: New hypermetabolic right upper lobe lung nodule. Differential includes inflammatory /neoplastic process 09/03/2022 - 10/08/2022 - Cisplatin total dose 240 mg/m2 with RT 07/31/2022 examination under anesthesia/panendoscopy. Findings included a friable exophytic mass left base of tongue extending into the vallecula. No other significant findings on laryngoscopy. 07/27/2022 CT neck: with contrast which demonstrated a 5 x 4.5 x 2.5 cm mass arising from the left base of tongue injecting into the hypopharynx and displacing the epiglottis posterior and inferior with narrowing of the hypopharynx. In addition a level 2 left-sided lymph node measuring 1.7 x 1.0 x 1.0 cm suspicious for metastatic disease. June 2022 - voice changed and trouble swallowing. February 2022 - started losing weight 1999 - Colon Ca Stage 3 - 2/5 LN + [place] regimen on protocol Updated Visit, March 20, 2023: Feels great and has recovered from upper respiratory infection. Reviewed CT and showed improvement. Updated Visit, February 06, 2023: Doing ok but has productive cough and vocal changes Reviewed PET showing a new consolidation in right lung that could be infectious / malignant. Will repeat CT Chest. He is anxious. Updated Visit, November 07, 2022: Manish returns with Jahaira. Eating is much better but taste is not back. Neutropenia resolved. Updated Visit, October 31, 2022: Manish Root returns for follow-up. He still altered taste. He has no sense for sweet foods. He continues to have intermittent mouth dryness. He denies mouth sores. His weight is over all stable. He denies fevers, chills, night sweats and signs/symptoms of infection. He complains of increase in phlegm production Updated Visit, October 25, 2022: Manish Root returns for follow-up. He received Neupogen 400 mcg on 10/19/2022. He remains on Cipro prophylaxis. He denies fevers, chills, night sweats and signs/symptoms of infection. No bleeding. He has some bruising. He states that everything tastes terrible. He complains of dry mouth. He denies any difficulty swallowing. Updated Visit, October 19, 2022: Manish returns with Jahaira and is doing well. Feeling better but is neutropenic from chemotherapy. Really re-inforced education regarding neutropenia and fevers. Updated Visit, October 01, 2022: Manish Root returns for follow-up and treatment. He remains on weekly cisplatin concurrent with radiation and overall is tolerating fairly well. He has 14 radiation treatments remaining. He states that he has no taste. He does not eat and drink enough. He denies difficulty swallowing. He denies any unusual pain. He has occasional nausea and takes the prescribed antiemetics. His weight is down. He states that he has a sinus infection and gets these regularly. He is typically treated by Dr. Nelson. He is requesting an antibiotic be called into his pharmacy. He denies fevers. Overall he is doing fairly well and wishes to proceed with treatment as planned. Updated Visit, September 10, 2022: Doing well. No side effects. Noted some improvement in ability to swallow and has gained 2 lbs. Lbas safe to continue. Updated Visit, September 03, 2022: Manish returns with his Jahaira. Ready to start chemo + RT - RT started. Ready for cisplatin. Initial Visit, August 16, 2022: Manish Root presents today Hematology and Oncology evaluation. He is a 76 year old male who presents with his significant other named Jahaira. 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 REVIEW OF SYSTEMS Per HPI and otherwise negative by full review of organ systems. ECOG PERFORMANCE STATUS: 0 PHYSICAL EXAMINATION: Vitals: BP 139/65 Pulse 59 Temp (Src) 97.9 (Temporal) Resp 16 Ht 5' 5.709 (1.67m) Wt 176 lb 3.2 oz (79.9kg) SpO2 98% BMI 28.69 kg/(m^2). Body surface area is 1.92 meters squared. Exam limited to gross visualization where appropriate. Gen.: This is an age-appropriate patient in no acute distress. Head: Appears atraumatic with no visible lesions. Eyes: Pupils equally round and reactive to light, extraocular muscles are intact. Neck: Supple. Mouth: Masked. Respiratory: Appears to be respiring comfortably. Neurologic: Nonfocal to gross visualization. Alert and oriented 3. Psychiatric: No evidence of inappropriate anxiety or depression. Skin: Visible areas of skin without rash, lesions, wounds or petechiae. ALLERGIES: ALLERGIES No Known Allergies MEDICATIONS: ondansetron (ZOFRAN) 8 mg tablet Take 1 tablet by mouth every 8 hours as needed for nausea/vomiting. prochlorperazine (COMPAZINE) 10 mg tablet Take 1 tablet by mouth every 6 hours as needed. ergocalciferol 50,000 unit capsule (VITAMIN D2, DRISDOL) TAKE 1 CAPSULE BY MOUTH WEEKLY metFORMIN (GLUCOPHAGE) 500 mg tablet Take 500 mg by mouth as directed. 1 AM/1 PM metoprolol succinate ER (TOPROL XL) 25 mg 24 hr tablet Take 25 mg by mouth once daily. fenofibrate (LOFIBRA) 134 mg capsule Take 134 mg by mouth once daily. Aspirin 81 mg tab Take 81 mg by mouth once daily. iv contrast (will be provided with radiology test) CT Chest W -Inject, intravenously, once for 1 dose.No IV access, insert saline lock prior to the beginning of sedation, infusion, injection of imaging exam. Discontinue saline lock post exam. If Pt. has a central line or IVAD, may access for administration according to line specific nursing protocol. Once exam is complete flush line and de-access according to line specific nursing protocol in the CT contrast administration guidelines link. LABORATORY VALUES: WBC (k/uL) Date Value 02/06/2023 3.43 (L) RBC (m/uL) Date Value 02/06/2023 3.94 (L) Hemoglobin (g/dL) Date Value 02/06/2023 12.6 (L) Hematocrit (%) Date Value 02/06/2023 37.6 (L) MCV (fL) Date Value 02/06/2023 95.4 MCH (pg) Date Value 02/06/2023 32.0 MCHC (g/dL) Date Value 02/06/2023 33.5 RDW-CV (%) Date Value 02/06/2023 12.8 Platelet Count (k/uL) Date Value 02/06/2023 153 MPV (fL) Date Value 02/06/2023 9.4 Glucose (mg/dL) Date Value 02/06/2023 98 BUN (mg/dL) Date Value 02/06/2023 25 (H) Creatinine (mg/dL) Date Value 02/06/2023 1.20 Sodium (mmol/L) Date Value 02/06/2023 139 Potassium (mmol/L) Date Value 02/06/2023 4.9 Chloride (mmol/L) Date Value 02/06/2023 102 CO2 (mmol/L) Date Value 02/06/2023 30 Protein, Total (g/dL) Date Value 02/06/2023 6.7 Albumin (g/dL) Date Value 02/06/2023 4.5 Calcium, Total (mg/dL) Date Value 02/06/2023 9.9 Alkaline Phosphatase (U/L) Date Value 02/06/2023 58 Bilirubin, Total (mg/dL) Date Value 02/06/2023 0.3 AST (U/L) Date Value 02/06/2023 13 (L) ALT (U/L) Date Value 02/06/2023 9 (L) Cholesterol, Total (mg/dL) Date Value 02/06/2023 168 Triglyceride (mg/dL) Date Value 02/06/2023 89 DIAGNOSIS: (C01) 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) (primary encounter diagnosis) Plan: CT CHEST W IVCON, iv contrast (will be provided with radiology test), CBC + DIFF, COMP METABOLIC PANEL (R91.8) Mass of right lung Plan: CT CHEST W IVCON, iv contrast (will be provided with radiology test), CBC + DIFF, COMP METABOLIC PANEL PAST MEDICAL HISTORY Diagnosis Date 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) 08/21/2022 Chemotherapy-induced neutropenia (HCC) 10/19/2022 Diabetes mellitus (HCC) HTN (hypertension) PAST SURGICAL HISTORY Procedure Laterality Date LAPAROSCOPIC HEMICOLECTOMY PAST SURGICAL HISTORY OF Cardiac stent placement Social History Tobacco Use Smoking status: Never Passive exposure: Never Smokeless tobacco: Never Vaping Use Vaping Use: Never used Substance Use Topics Alcohol use: Yes Comment: daily 3 beers Drug use: Not Currently No family history on file. I spent a total of 30 minutes on the date of the service which included preparing to see the patient, [id number] patient care, completing clinical documentation, performing a medically appropriate examination, counseling and educating the patient/family/caregiver, ordering medications, tests, or procedures, independently interpreting results (not separately reported), communicating results to the patient/family/caregiver, and care coordination (not separately reported). John England MD, CPE Hematology and Oncology Services Provided at: [place], [place] CC: Dr. Yordan Morales documented in this encounter [facility] 09-07-2023 Note HNO ID: [id number] Author: Rafael Zurita RT(R) Service: ? Author Type: Technologist Type: Progress Notes Filed: 03/14/2023 1:56 PM Note Text: Radiology Service Progress Note PATIENT NAME: Manish Root DATE OF SERVICE: March 14, 2023 TIME: 1:52 PM PATIENT IDENTITY VERIFICATION COMPLETED USING TWO (2) IDENTIFIERS: Name and Date of confirmed by patient verbally. FALL SCREENING: Has the patient had 2 falls in the last year or 1 fall with injury or currently using an Ambulatory Assistive Device (Walker, Cane, Wheelchair, Crutches, etc.)? No PATIENT GENDER DATA: Male PATIENT RELEVANT IMPLANT DATA REVIEWED: Not Applicable RADIOLOGY DEPARTMENT: CT; Exam(s) Completed: Chest PERIPHERAL IV DATA: Site assessment: Clean,Dry and Intact, Site disposition Discontinued SIGNED BY: RT Perlita(R) March 14, 2023 1:52 PM [facility] 03-14-2023 Note HNO ID: [id number] Author: Maggie Partida RN Service: ? Author Type: Registered Nurse Type: Progress Notes Filed: 03/14/2023 1:55 PM Note Text: Radiology Service Progress Note DATE OF SERVICE: March 14, 2023 TIME: 1:55 PM PATIENT WEIGHT: 178LBS PATIENT IDENTITY VERIFICATION COMPLETED USING TWO (2) STANDARD IDENTIFIERS: Name and Date of confirmed by patient verbally. FALL SCREENING: Has the patient had 2 falls in the last year or 1 fall with injury or currently using an Ambulatory Assistive Device (Walker, Cane, Wheelchair, Crutches, etc.)? No PATIENT GENDER DATA: Male ALLERGIES: Reviewed and unchanged CONTRAST ALLERGY: No EXAM: CT -CONTRAST INDUCED NEPHROPATHY RISK FACTORS: Patient age > 60 years CREATININE: Creatinine Date Value Ref Range Status 02/06/2023 1.20 0.73 - 1.22 mg/dL Final 11/07/2022 1.07 0.73 - 1.22 mg/dL Final 10/31/2022 1.36 (H) 0.73 - 1.22 mg/dL Final Estimated Glomerular Filtration Rate Date Value Ref Range Status 02/06/2023 62 >=60 mL/min/1.73m? Final Comment: Estimated Glomerular Filtration Rate (eGFR) is calculated using the 2020 CKD-EPI creatinine equation. This equation utilizes serum creatinine, sex, and age as parameters. The creatinine assay has traceable calibration to isotope dilution-mass spectrometry. Refer to KDIGO guidelines for clinical interpretation. In patients with unstable renal function, e.g. those with acute kidney injury, the eGFR may not accurately reflect actual GFR. P.O.C.T. RESULTS: POC done: Yes, See Lab Tab March 14, 2023 TREATMENT: N/A IV SITE: Ambulatory: A peripheral IV was started in the Right antecubital site with a Angio cath: 20 gauge. IV SITE APPEARANCE: Clean,Dry and Intact SIGNATURE: Maggie Partida RN PATIENT NAME: Manish Root DATE: March 14, 2023 TIME: 1:55 PM [facility] 02-06-2023 Note HNO ID: [id number] Author: Yordan Feliz MD Service: ? 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 INTERVAL HISTORY: Doing well. Taste and swallowing continues to improve. Denies neck pain otalgia or other new issues. Denies cough fever or shortness of breath. PET/CT 01/29/2023:1. Neck: No suspicious hypermetabolic foci. Posttreatment change. 2. Chest: New hypermetabolic right upper lobe lung nodule. Differential includes inflammatory/neoplastic process. 3. Abdomen and pelvis: No evidence of FDG avid neoplastic process 4. Skeleton: No hypermetabolic osseous lesions ALLERGIES No Known Allergies MEDICATIONS: ergocalciferol 50,000 unit capsule (VITAMIN D2, DRISDOL) TAKE 1 CAPSULE BY MOUTH WEEKLY metFORMIN (GLUCOPHAGE) 500 mg tablet TAKE 2 TABLETS BY MOUTH EVERY MORNING and TAKE 1 TABLET BY MOUTH IN THE EVENING metoprolol succinate ER (TOPROL XL) 25 mg 24 hr tablet Take 25 mg by mouth once daily. fenofibrate (LOFIBRA) 134 mg capsule Take 134 mg by mouth once daily. Aspirin 81 mg tab Take 81 mg by mouth once daily. ondansetron (ZOFRAN) 8 mg tablet Take 1 tablet by mouth every 8 hours as needed for nausea/vomiting. prochlorperazine (COMPAZINE) 10 mg tablet Take 1 tablet by mouth every 6 hours as needed. REVIEW OF SYSTEMS: PAIN ASSESSMENT: Negative for pain, history of chronic pain, or current treatment for a chronic pain condition. NECK: Negative for goiter, pain or significant neck swelling RESPIRATORY: Negative for cough, hemoptysis, wheezing, COPD, dyspnea or shortness of breath CARDIOVASCULAR: Negative for chest pain, leg swelling, hypertension, CHF or palpitations GI: No nausea, vomiting, or diarrhea : No history of dysuria, frequency or incontinence MUSCULOSKELETAL: Negative for joint pain or swelling, back pain or muscle pain NEURO: No history of headaches, syncope, paralysis, seizures or tremors The remainder of the review of systems is negative. PHYSICAL EXAM: 02/06/23 1159 BP: 142/67 Pulse: (!) 56 Resp: 16 Temp: 36.3 ?C (97.3 ?F) Weight: 80.7 kg (178 lb) KPS: 100 General Appearance: Well appearing, alert, in no acute distress, well-hydrated, well nourished.. Skin: Skin color, texture, turgor normal, no suspicious rashes or lesions. Oropharynx: Lips, mucosa, and tongue normal, teeth and gums normal, oropharynx normal. Neck: Supple, no adenopathy or masses Lungs: Lungs clear to auscultation. No wheezing, rhonchi, rales.. Neurologic: Gait normal. Reflexes normal and symmetric. Sensation grossly intact.. Lymph Nodes: No cervical lymphadenopathy, No supraclavicular lymphadenopathy, No axillary lymphadenopathy. 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 1. Oropharyngeal cancer. Doing well. Complete response radiographically. He continues close follow-up with Dr. Morales. 2. Lung nodule PET/CT, has inflammatory appearance. CT scheduled for 6 to 8 weeks for follow-up. Signed by: Yordan Feliz MD cc: Dr. Shaikh Vidal Estrada [address] [place] [id number] [facility] 02-06-2023 Note HNO ID: [id number] Author: John England MD Service: ? Author Type: Physician Type: Progress Notes Filed: 02/06/2023 12:24 PM Note Text: NAME: Dk Manish [facility] NO.: [id number] DATE OF SERVICE: February 06, 2023 (Jacquelyn) Some elements in this clinic note that are critical to medical decision making have been carefully reviewed and included from a prior clinic note dated: November 07, 2022 (Jacquelyn) Referring Provider: Dr. Татьяна Feliz Additional Clinicians involved in Manish Root's care: DIAGNOSIS: Base of Tongue squamous cell ca. 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 He has a prior history of colon cancer in 1999. July 31, 2022 - Stage : T3 N1a M0 Completed treatment and is eating better. Neutropenia resolved. PET with right lung lesion - will get [address] chest PLAN: CT Chest in 5 weeks RTC 6 weeks to review please HPI: CASE HISTORY: Reverse Chronological Order 01/29/2023 - Chest: New hypermetabolic right upper lobe lung nodule. Differential includes inflammatory /neoplastic process 09/03/2022 - 10/08/2022 - Cisplatin total dose 240 mg/m2 with RT 07/31/2022 examination under anesthesia/panendoscopy. Findings included a friable exophytic mass left base of tongue extending into the vallecula. No other significant findings on laryngoscopy. 07/27/2022 CT neck: with contrast which demonstrated a 5 x 4.5 x 2.5 cm mass arising from the left base of tongue injecting into the hypopharynx and displacing the epiglottis posterior and inferior with narrowing of the hypopharynx. In addition a level 2 left-sided lymph node measuring 1.7 x 1.0 x 1.0 cm suspicious for metastatic disease. June 2022 - voice changed and trouble swallowing. February 2022 - started losing weight 1999 - Colon Ca Stage 3 - 2/5 LN + [place] regimen on protocol Updated Visit, February 06, 2023: Doing ok but has productive cough and vocal changes Reviewed PET showing a new consolidation in right lung that could be infectious / malignant. Will repeat CT Chest. He is anxious. Updated Visit, November 07, 2022: Manish returns with Jahaira. Eating is much better but taste is not back. Neutropenia resolved. Updated Visit, October 31, 2022: Manish Root returns for follow-up. He still altered taste. He has no sense for sweet foods. He continues to have intermittent mouth dryness. He denies mouth sores. His weight is over all stable. He denies fevers, chills, night sweats and signs/symptoms of infection. He complains of increase in phlegm production Updated Visit, October 25, 2022: Manish Root returns for follow-up. He received Neupogen 400 mcg on 10/19/2022. He remains on Cipro prophylaxis. He denies fevers, chills, night sweats and signs/symptoms of infection. No bleeding. He has some bruising. He states that everything tastes terrible. He complains of dry mouth. He denies any difficulty swallowing. Updated Visit, October 19, 2022: Manish returns with Jahaira and is doing well. Feeling better but is neutropenic from chemotherapy. Really re-inforced education regarding neutropenia and fevers. Updated Visit, October 01, 2022: Manish Root returns for follow-up and treatment. He remains on weekly cisplatin concurrent with radiation and overall is tolerating fairly well. He has 14 radiation treatments remaining. He states that he has no taste. He does not eat and drink enough. He denies difficulty swallowing. He denies any unusual pain. He has occasional nausea and takes the prescribed antiemetics. His weight is down. He states that he has a sinus infection and gets these regularly. He is typically treated by Dr. Nelson. He is requesting an antibiotic be called into his pharmacy. He denies fevers. Overall he is doing fairly well and wishes to proceed with treatment as planned. Updated Visit, September 10, 2022: Doing well. No side effects. Noted some improvement in ability to swallow and has gained 2 lbs. Lbas safe to continue. Updated Visit, September 03, 2022: Manish returns with his Jahaira. Ready to start chemo + RT - RT started. Ready for cisplatin. Initial Visit, August 16, 2022: Manish Root presents today Hematology and Oncology evaluation. He is a 76 year old male who presents with his significant other named Jahaira. 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 REVIEW OF SYSTEMS Per HPI and otherwise negative by full review of organ systems. ECOG PERFORMANCE STATUS: 0 PHYSICAL EXAMIN (more content not included)... 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 INTERVAL HISTORY: Doing well. Taste and swallowing continues to improve. Denies neck pain otalgia or other new issues. Denies cough fever or shortness of breath. PET/CT 01/29/2023:1. Neck: No suspicious hypermetabolic foci. Posttreatment change. 2. Chest: New hypermetabolic right upper lobe lung nodule. Differential includes inflammatory/neoplastic process. 3. Abdomen and pelvis: No evidence of FDG avid neoplastic process 4. Skeleton: No hypermetabolic osseous lesions ALLERGIES No Known Allergies MEDICATIONS: ergocalciferol 50,000 unit capsule (VITAMIN D2, DRISDOL) TAKE 1 CAPSULE BY MOUTH WEEKLY metFORMIN (GLUCOPHAGE) 500 mg tablet TAKE 2 TABLETS BY MOUTH EVERY MORNING and TAKE 1 TABLET BY MOUTH IN THE EVENING metoprolol succinate ER (TOPROL XL) 25 mg 24 hr tablet Take 25 mg by mouth once daily. fenofibrate (LOFIBRA) 134 mg capsule Take 134 mg by mouth once daily. Aspirin 81 mg tab Take 81 mg by mouth once daily. ondansetron (ZOFRAN) 8 mg tablet Take 1 tablet by mouth every 8 hours as needed for nausea/vomiting. prochlorperazine (COMPAZINE) 10 mg tablet Take 1 tablet by mouth every 6 hours as needed. REVIEW OF SYSTEMS: PAIN ASSESSMENT: Negative for pain, history of chronic pain, or current treatment for a chronic pain condition. NECK: Negative for goiter, pain or significant neck swelling RESPIRATORY: Negative for cough, hemoptysis, wheezing, COPD, dyspnea or shortness of breath CARDIOVASCULAR: Negative for chest pain, leg swelling, hypertension, CHF or palpitations GI: No nausea, vomiting, or diarrhea : No history of dysuria, frequency or incontinence MUSCULOSKELETAL: Negative for joint pain or swelling, back pain or muscle pain NEURO: No history of headaches, syncope, paralysis, seizures or tremors The remainder of the review of systems is negative. PHYSICAL EXAM: 02/06/23 1159 BP: 142/67 Pulse: (!) 56 Resp: 16 Temp: 36.3 C (97.3 F) Weight: 80.7 kg (178 lb) KPS: 100 General Appearance: Well appearing, alert, in no acute distress, well-hydrated, well nourished.. Skin: Skin color, texture, turgor normal, no suspicious rashes or lesions. Oropharynx: Lips, mucosa, and tongue normal, teeth and gums normal, oropharynx normal. Neck: Supple, no adenopathy or masses Lungs: Lungs clear to auscultation. No wheezing, rhonchi, rales.. Neurologic: Gait normal. Reflexes normal and symmetric. Sensation grossly intact.. Lymph Nodes: No cervical lymphadenopathy, No supraclavicular lymphadenopathy, No axillary lymphadenopathy. 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 1. Oropharyngeal cancer. Doing well. Complete response radiographically. He continues close follow-up with Dr. Morales. 2. Lung nodule PET/CT, has inflammatory appearance. CT scheduled for 6 to 8 weeks for follow-up. Signed by: Yordan Feliz MD cc: Dr. Shaikh Vidal Estrada [address] [place] [id number] documented in this encounter [facility] 02-06-2023 History of Presen t illness Narrative Images from the original note were not included. NAME: Manish Root NO.: [id number] DATE OF SERVICE: February 06, 2023 () Some elements in this clinic note that are critical to medical decision making have been carefully reviewed and included from a prior clinic note dated: November 07, 2022 (juliana) Referring Provider: Dr. Татьяна Fleiz Additional Clinicians involved in Manish Root's care: DIAGNOSIS: Base of Tongue squamous cell ca. 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 He has a prior history of colon cancer in 1999. July 31, 2022 - Stage : T3 N1a M0 Completed treatment and is eating better. Neutropenia resolved. PET with right lung lesion - will get [address] chest PLAN: CT Chest in 5 weeks RTC 6 weeks to review please HPI: CASE HISTORY: Reverse Chronological Order 01/29/2023 - Chest: New hypermetabolic right upper lobe lung nodule. Differential includes inflammatory /neoplastic process 09/03/2022 - 10/08/2022 - Cisplatin total dose 240 mg/m2 with RT 07/31/2022 examination under anesthesia/panendoscopy. Findings included a friable exophytic mass left base of tongue extending into the vallecula. No other significant findings on laryngoscopy. 07/27/2022 CT neck: with contrast which demonstrated a 5 x 4.5 x 2.5 cm mass arising from the left base of tongue injecting into the hypopharynx and displacing the epiglottis posterior and inferior with narrowing of the hypopharynx. In addition a level 2 left-sided lymph node measuring 1.7 x 1.0 x 1.0 cm suspicious for metastatic disease. June 2022 - voice changed and trouble swallowing. February 2022 - started losing weight 1999 - Colon Ca Stage 3 - 2/5 LN + Hat[place] regimen on protocol Updated Visit, February 06, 2023: Doing ok but has productive cough and vocal changes Reviewed PET showing a new consolidation in right lung that could be infectious / malignant. Will repeat CT Chest. He is anxious. Updated Visit, November 07, 2022: Manish returns with Jahaira. Eating is much better but taste is not back. Neutropenia resolved. Updated Visit, October 31, 2022: Manish Root returns for follow-up. He still altered taste. He has no sense for sweet foods. He continues to have intermittent mouth dryness. He denies mouth sores. His weight is over all stable. He denies fevers, chills, night sweats and signs/symptoms of infection. He complains of increase in phlegm production Updated Visit, October 25, 2022: Manish Root returns for follow-up. He received Neupogen 400 mcg on 10/19/2022. He remains on Cipro prophylaxis. He denies fevers, chills, night sweats and signs/symptoms of infection. No bleeding. He has some bruising. He states that everything tastes terrible. He complains of dry mouth. He denies any difficulty swallowing. Updated Visit, October 19, 2022: Manish returns with Jahaira and is doing well. Feeling better but is neutropenic from chemotherapy. Really re-inforced education regarding neutropenia and fevers. Updated Visit, October 01, 2022: Manish Root returns for follow-up and treatment. He remains on weekly cisplatin concurrent with radiation and overall is tolerating fairly well. He has 14 radiation treatments remaining. He states that he has no taste. He does not eat and drink enough. He denies difficulty swallowing. He denies any unusual pain. He has occasional nausea and takes the prescribed antiemetics. His weight is down. He states that he has a sinus infection and gets these regularly. He is typically treated by Dr. Nelson. He is requesting an antibiotic be called into his pharmacy. He denies fevers. Overall he is doing fairly well and wishes to proceed with treatment as planned. Updated Visit, September 10, 2022: Doing well. No side effects. Noted some improvement in ability to swallow and has gained 2 lbs. Lbas safe to continue. Updated Visit, September 03, 2022: Manish returns with his Jahaira. Ready to start chemo + RT - RT started. Ready for cisplatin. Initial Visit, August 16, 2022: Manish Root presents today Hematology and Oncology evaluation. He is a 76 year old male who presents with his significant other named Jahaira. 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 REVIEW OF SYSTEMS Per HPI and otherwise negative by full review of organ systems. ECOG PERFORMANCE STATUS: 0 PHYSICAL EXAMINATION: Vitals: BP 142/67 Pulse 56 Temp (Src) 97.3 (Temporal) Resp 16 Ht 5' 5.709 (1.67m) Wt 178 lb 6.4 oz (80.9kg) SpO2 98% BMI 29.05 kg/(m^2). Body surface area is 1.94 meters squared. Exam limited to gross visualization where appropriate. Gen.: This is an age-appropriate patient in no acute distress. Head: Appears atraumatic with no visible lesions. Eyes: Pupils equally round and reactive to light, extraocular muscles are intact. Neck: Supple. Mouth: Masked. Respiratory: Appears to be respiring comfortably. Neurologic: Nonfocal to gross visualization. Alert and oriented 3. Psychiatric: No evidence of inappropriate anxiety or depression. Skin: Visible areas of skin without rash, lesions, wounds or petechiae. ALLERGIES: ALLERGIES No Known Allergies MEDICATIONS: ondansetron (ZOFRAN) 8 mg tablet Take 1 tablet by mouth every 8 hours as needed for nausea/vomiting. prochlorperazine (COMPAZINE) 10 mg tablet Take 1 tablet by mouth every 6 hours as needed. ergocalciferol 50,000 unit capsule (VITAMIN D2, DRISDOL) TAKE 1 CAPSULE BY MOUTH WEEKLY metFORMIN (GLUCOPHAGE) 500 mg tablet TAKE 2 TABLETS BY MOUTH EVERY MORNING and TAKE 1 TABLET BY MOUTH IN THE EVENING metoprolol succinate ER (TOPROL XL) 25 mg 24 hr tablet Take 25 mg by mouth once daily. fenofibrate (LOFIBRA) 134 mg capsule Take 134 mg by mouth once daily. Aspirin 81 mg tab Take 81 mg by mouth once daily. iv contrast (will be provided with radiology test) CT Chest W -Inject, intravenously, once for 1 dose.No IV access, insert saline lock prior to the beginning of sedation, infusion, injection of imaging exam. Discontinue saline lock post exam. If Pt. has a central line or IVAD, may access for administration according to line specific nursing protocol. Once exam is complete flush line and de-access according to line specific nursing protocol in the CT contrast administration guidelines link. LABORATORY VALUES: WBC (k/uL) Date Value 02/06/2023 3.43 (L) RBC (m/uL) Date Value 02/06/2023 3.94 (L) Hemoglobin (g/dL) Date Value 02/06/2023 12.6 (L) Hematocrit (%) Date Value 02/06/2023 37.6 (L) MCV (fL) Date Value 02/06/2023 95.4 MCH (pg) Date Value 02/06/2023 32.0 MCHC (g/dL) Date Value 02/06/2023 33.5 RDW-CV (%) Date Value 02/06/2023 12.8 Platelet Count (k/uL) Date Value 02/06/2023 153 MPV (fL) Date Value 02/06/2023 9.4 Glucose (mg/dL) Date Value 02/06/2023 98 BUN (mg/dL) Date Value 02/06/2023 25 (H) Creatinine (mg/dL) Date Value 02/06/2023 1.20 Sodium (mmol/L) Date Value 02/06/2023 139 Potassium (mmol/L) Date Value 02/06/2023 4.9 Chloride (mmol/L) Date Value 02/06/2023 102 CO2 (mmol/L) Date Value 02/06/2023 30 Protein, Total (g/dL) Date Value 02/06/2023 6.7 Albumin (g/dL) Date Value 02/06/2023 4.5 Calcium, Total (mg/dL) Date Value 02/06/2023 9.9 Alkaline Phosphatase (U/L) Date Value 02/06/2023 58 Bilirubin, Total (mg/dL) Date Value 02/06/2023 0.3 AST (U/L) Date Value 02/06/2023 13 (L) ALT (U/L) Date Value 02/06/2023 9 (L) DIAGNOSIS: (C01) 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) (primary encounter diagnosis) (R91.8) Mass of right lung (R91.8) Lung nodules Plan: CT CHEST W IVCON PAST MEDICAL HISTORY Diagnosis Date 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) 08/21/2022 Chemotherapy-induced neutropenia (HCC) 10/19/2022 Diabetes mellitus (HCC) HTN (hypertension) PAST SURGICAL HISTORY Procedure Laterality Date LAPAROSCOPIC HEMICOLECTOMY PAST SURGICAL HISTORY OF Cardiac stent placement Social History Tobacco Use Smoking status: Never Passive exposure: Never Smokeless tobacco: Never Vaping Use Vaping Use: Never used Substance Use Topics Alcohol use: Yes Comment: daily 3 beers Drug use: Not Currently No family history on file. I spent a total of 30 minutes on the date of the service which included preparing to see the patient, [id number] patient care, completing clinical documentation, performing a medically appropriate examination, counseling and educating the patient/family/caregiver, ordering medications, tests, or procedures, communicating with other HCPs (not separately reported), independently interpreting results (not separately reported), communicating results to the patient/family/caregiver, and care coordination (not separately reported). John England MD, CPE Hematology and Oncology Services Provided at: [place], [place] CC: Dr. Yordan Morales documented in this encounter [facility] 02-06-2023 Nurse Note Patient has easy bruising more so on arms, voice is always changing and has a lot of phlegm. Lala Hooper MA documented in this encounter [facility] 01-29-2023 Note HNO ID: [id number] Author: Malcolm Thurston RT(R) Service: ? Author Type: Technologist Type: Progress Notes Filed: 01/29/2023 11:49 AM Note Text: RADIOLOGY SERVICE PROGRESS NOTE SERVICE DATE: 01/29/2023 SERVICE TIME: 11:48 AM PATIENT IDENTITY VERIFICATION COMPLETED USING TWO (2) STANDARD IDENTIFIERS: Name and Date of confirmed by patient verbally FALL SCREENING: Has the patient had 2 falls in the last year or 1 fall with injury or currently using an Ambulatory Assistive Device (Walker, Cane, Wheelchair, Crutches, etc.)? No PATIENT GENDER DATA: .male ALLERGIES: Reviewed and unchanged MEDICATIONS REVIEWED: Yes PATIENT RELEVANT IMPLANT DATA REVIEWED: Not Applicable IV SITE: rt ac POST EXAM PIV STATUS: Discontinued PROCEDURE TYPE: NM INJECT: PET/CT HEAD, NECK, BODY SCAN. 9.7 mCi F18 FDG. No other medications given.. ADMINISTRATION TIME: 1105 PATIENT DISCHARGED TO: Ambulatory patient, left [place] department area. A Diagnostic radioactive procedure has taken place, with no further precautions necessary other than routine body substance precautions. More information regarding radiation safety can be found using this link: [email or web address] SIGNATURE: RT Aron(R) PATIENT NAME: Manish Root DATE: January 29, 2023 TIME: 11:48 AM PAGER/CONTACT #: [facility] 01-29-2023 Note HNO ID: [id number] Author: Maggie Partida RN Service: ? Author Type: Registered Nurse Type: Progress Notes Filed: 01/29/2023 11:07 AM Note Text: Radiology Service Progress Note DATE OF SERVICE: January 29, 2023 TIME: 11:06 AM PATIENT IDENTITY VERIFICATION COMPLETED USING TWO (2) STANDARD IDENTIFIERS: Name and Date of confirmed by patient verbally. FALL SCREENING: Has the patient had 2 falls in the last year or 1 fall with injury or currently using an Ambulatory Assistive Device (Walker, Cane, Wheelchair, Crutches, etc.)? No PATIENT GENDER DATA: Male EXAM: CT -CONTRAST INDUCED NEPHROPATHY RISK FACTORS: Not applicable CREATININE: Creatinine Date Value Ref Range Status 11/07/2022 1.07 0.73 - 1.22 mg/dL Final 10/31/2022 1.36 (H) 0.73 - 1.22 mg/dL Final 10/25/2022 1.20 0.73 - 1.22 mg/dL Final Estimated Glomerular Filtration Rate Date Value Ref Range Status 11/07/2022 71 >=60 mL/min/1.73m? Final Comment: Estimated Glomerular Filtration Rate (eGFR) is calculated using the 2020 CKD-EPI creatinine equation. This equation utilizes serum creatinine, sex, and age as parameters. The creatinine assay has traceable calibration to isotope dilution-mass spectrometry. Refer to KDIGO guidelines for clinical interpretation. In patients with unstable renal function, e.g. those with acute kidney injury, the eGFR may not accurately reflect actual GFR. P.O.C.T. RESULTS: N/A January 29, 2023 TREATMENT: N/A IV SITE: Ambulatory: A peripheral IV was started in the Right antecubital site with a Angio cath: 22 gauge. IV SITE APPEARANCE: Clean,Dry and Intact SIGNATURE: Maggie Partida RN PATIENT NAME: Manish Root DATE: January 29, 2023 TIME: 11:06 AM [facility] 11-28-2022 Note HNO ID: [id number] Author: Yordan Feliz MD Service: ? 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 INTERVAL HISTORY: Doing much better. Swelling has improved considerably. No significant oral cavity oropharyngeal or neck pain. ALLERGIES No Known Allergies MEDICATIONS: ergocalciferol 50,000 unit capsule (VITAMIN D2, DRISDOL) TAKE 1 CAPSULE BY MOUTH WEEKLY metFORMIN (GLUCOPHAGE) 500 mg tablet TAKE 2 TABLETS BY MOUTH EVERY MORNING and TAKE 1 TABLET BY MOUTH IN THE EVENING metoprolol succinate ER (TOPROL XL) 25 mg 24 hr tablet Take 25 mg by mouth once daily. fenofibrate (LOFIBRA) 134 mg capsule Take 134 mg by mouth once daily. Aspirin 81 mg tab Take 81 mg by mouth once daily. ondansetron (ZOFRAN) 8 mg tablet Take 1 tablet by mouth every 8 hours as needed for nausea/vomiting. prochlorperazine (COMPAZINE) 10 mg tablet Take 1 tablet by mouth every 6 hours as needed. REVIEW OF SYSTEMS: GENERAL: Appetite improving. HEENT: See HPI NECK: Negative for masses in the neck. RESPIRATORY: Negative for cough or shortness of breath. CARDIAC: Negative for chest pain, palpitations, murmurs, or syncopal episodes. NEURO: Negative for dizziness, headache, weakness or numbness. HEMATOLOGIC: Negative for bleeding or easy bruising. SKIN: SEE HPI. PHYSICAL EXAM: 11/28/22 1437 BP: 165/69 Pulse: 66 Resp: 18 Temp: (!) 35.9 ?C (96.7 ?F) SpO2: 97% Weight: 78.5 kg (173 lb) KPS: 100 General Appearance: Alert and oriented. No acute distress. HEENT: NCAT. Sclera anicteric. PERRL. EOMI. Oral cavity and oropharynx: Mild erythema without ulceration, posterior oropharynx somewhat asymmetric tongue, no palpable suspicious areas. Neck: Normal ROM. No palpable cervical or supraclavicular adenopathy. Neuro: Speech fluent. Gait normal. No focal deficits. Skin: No rashes noted Lymphatics: No palpable lymphadenopathy. 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 Patient doing well with with resolving acute radiation related issues. No evidence of persistent or recurrent disease. He continues close follow-up with Dr. Morales. PET scan ordered for 12 weeks from completion of treatment. We will plan to see patient back i after his PET scan. 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 INTERVAL HISTORY: Doing much better. Swelling has improved considerably. No significant oral cavity oropharyngeal or neck pain. ALLERGIES No Known Allergies MEDICATIONS: ergocalciferol 50,000 unit capsule (VITAMIN D2, DRISDOL) TAKE 1 CAPSULE BY MOUTH WEEKLY metFORMIN (GLUCOPHAGE) 500 mg tablet TAKE 2 TABLETS BY MOUTH EVERY MORNING and TAKE 1 TABLET BY MOUTH IN THE EVENING metoprolol succinate ER (TOPROL XL) 25 mg 24 hr tablet Take 25 mg by mouth once daily. fenofibrate (LOFIBRA) 134 mg capsule Take 134 mg by mouth once daily. Aspirin 81 mg tab Take 81 mg by mouth once daily. ondansetron (ZOFRAN) 8 mg tablet Take 1 tablet by mouth every 8 hours as needed for nausea/vomiting. prochlorperazine (COMPAZINE) 10 mg tablet Take 1 tablet by mouth every 6 hours as needed. REVIEW OF SYSTEMS: GENERAL: Appetite improving. HEENT: See HPI NECK: Negative for masses in the neck. RESPIRATORY: Negative for cough or shortness of breath. CARDIAC: Negative for chest pain, palpitations, murmurs, or syncopal episodes. NEURO: Negative for dizziness, headache, weakness or numbness. HEMATOLOGIC: Negative for bleeding or easy bruising. SKIN: SEE HPI. PHYSICAL EXAM: 11/28/22 1437 BP: 165/69 Pulse: 66 Resp: 18 Temp: (!) 35.9 C (96.7 F) SpO2: 97% Weight: 78.5 kg (173 lb) KPS: 100 General Appearance: Alert and oriented. No acute distress. HEENT: NCAT. Sclera anicteric. PERRL. EOMI. Oral cavity and oropharynx: Mild erythema without ulceration, posterior oropharynx somewhat asymmetric tongue, no palpable suspicious areas. Neck: Normal ROM. No palpable cervical or supraclavicular adenopathy. Neuro: Speech fluent. Gait normal. No focal deficits. Skin: No rashes noted Lymphatics: No palpable lymphadenopathy. 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 Patient doing well with with resolving acute radiation related issues. No evidence of persistent or recurrent disease. He continues close follow-up with Dr. Morales. PET scan ordered for 12 weeks from completion of treatment. We will plan to see patient back i after his PET scan. Signed by: Yordan Feliz MD cc: [place] [address] [address] [place] [id number] documented in this encounter [facility] 11-07-2022 Note HNO ID: [id number] Author: John England MD Service: ? Author Type: Physician Type: Progress Notes Filed: 11/07/2022 9:56 AM Note Text: NAME: Manish Root [facility] NO.: [id number] DATE OF SERVICE: November 07, 2022 (Jacquelyn) Some elements in this clinic note that are critical to medical decision making have been carefully reviewed and included from a prior clinic note dated: October 31, 2022 (Gokul) Referring Provider: Dr. Татьяна Feliz Additional Clinicians involved in Manish Root's care: DIAGNOSIS: Base of Tongue squamous cell ca. 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 He has a prior history of colon cancer in 1999. July 31, 2022 - Stage : T3 N1a M0 Completed treatment and is eating better. Neutropenia resolved. PLAN: Continue seeing Dr. Feliz and Dr. Morales. RTC in 12 -13 weeks (after PET is complete) PET per Dr. Feliz Coordinate return on same date as Dr. Feliz. Labs on day return HPI: CASE HISTORY: Reverse Chronological Order 09/03/2022 - 10/08/2022 - Cisplatin total dose 240 mg/m2 with RT 07/31/2022 examination under anesthesia/panendoscopy. Findings included a friable exophytic mass left base of tongue extending into the vallecula. No other significant findings on laryngoscopy. 07/27/2022 CT neck: with contrast which demonstrated a 5 x 4.5 x 2.5 cm mass arising from the left base of tongue injecting into the hypopharynx and displacing the epiglottis posterior and inferior with narrowing of the hypopharynx. In addition a level 2 left-sided lymph node measuring 1.7 x 1.0 x 1.0 cm suspicious for metastatic disease. June 2022 - voice changed and trouble swallowing. February 2022 - started losing weight 1999 - Colon Ca Stage 3 - 2/5 LN + [place] regimen on protocol Updated Visit, November 07, 2022: Manish returns with Jaharia. Eating is much better but taste is not back. Neutropenia resolved. Updated Visit, October 31, 2022: Manish Root returns for follow-up. He still altered taste. He has no sense for sweet foods. He continues to have intermittent mouth dryness. He denies mouth sores. His weight is over all stable. He denies fevers, chills, night sweats and signs/symptoms of infection. He complains of increase in phlegm production Updated Visit, October 25, 2022: Manish Root returns for follow-up. He received Neupogen 400 mcg on 10/19/2022. He remains on Cipro prophylaxis. He denies fevers, chills, night sweats and signs/symptoms of infection. No bleeding. He has some bruising. He states that everything tastes terrible. He complains of dry mouth. He denies any difficulty swallowing. Updated Visit, October 19, 2022: Manish returns with Jahaira and is doing well. Feeling better but is neutropenic from chemotherapy. Really re-inforced education regarding neutropenia and fevers. Updated Visit, October 01, 2022: Manish Root returns for follow-up and treatment. He remains on weekly cisplatin concurrent with radiation and overall is tolerating fairly well. He has 14 radiation treatments remaining. He states that he has no taste. He does not eat and drink enough. He denies difficulty swallowing. He denies any unusual pain. He has occasional nausea and takes the prescribed antiemetics. His weight is down. He states that he has a sinus infection and gets these regularly. He is typically treated by Dr. Nelson. He is requesting an antibiotic be called into his pharmacy. He denies fevers. Overall he is doing fairly well and wishes to proceed with treatment as planned. Updated Visit, September 10, 2022: Doing well. No side effects. Noted some improvement in ability to swallow and has gained 2 lbs. Lbas safe to continue. Updated Visit, September 03, 2022: Manish returns with his Jahaira. Ready to start chemo + RT - RT started. Ready for cisplatin. Initial Visit, August 16, 2022: Manish Root presents today Hematology and Oncology evaluation. He is a 76 year old male who presents with his significant other named Jahaira. 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 REVIEW OF SYSTEMS Per HPI and otherwise negative by full review of organ systems. ECOG PERFORMANCE STATUS: 0 PHYSICAL EXAMINATION: Vitals: BP 129/66 Pulse 58 Temp (Src) 97.5 (Temporal) Resp 16 Ht 5' 5.709 (1.67m) Wt 172 lb 3.2 oz (78.1kg) SpO2 100% BMI 28.04 kg/(m2). Body surface area is 1.9 meters squared. Exam limited to gross visualization where appropriate. Gen.: This is (more content not included)... [facility] 11-07-2022 Instructions John England MD - 11/07/2022 9:53 AM EDT Continue seeing Dr. Feliz and Dr. Morales. RTC in 12 -13 weeks (after PET is complete) PET per Dr. Feliz Coordinate return on same date as Dr. Feliz. Labs on day return documented in this encounter [facility] 11-07-2022 History of Presen t illness Narrative Images from the original note were not included. NAME: Manish Root CLINIC NO.: [id number] DATE OF SERVICE: November 07, 2022 (Jacquelyn) Some elements in this clinic note that are critical to medical decision making have been carefully reviewed and included from a prior clinic note dated: October 31, 2022 (Gokul) Referring Provider: Dr. Татьяна Feliz Additional Clinicians involved in Manish Root's care: DIAGNOSIS: Base of Tongue squamous cell ca. 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 He has a prior history of colon cancer in 1999. July 31, 2022 - Stage : T3 N1a M0 Completed treatment and is eating better. Neutropenia resolved. PLAN: Continue seeing Dr. Feliz and Dr. Morales. RTC in 12 -13 weeks (after PET is complete) PET per Dr. Feliz Coordinate return on same date as Dr. Feliz. Labs on day return HPI: CASE HISTORY: Reverse Chronological Order 09/03/2022 - 10/08/2022 - Cisplatin total dose 240 mg/m2 with RT 07/31/2022 examination under anesthesia/panendoscopy. Findings included a friable exophytic mass left base of tongue extending into the vallecula. No other significant findings on laryngoscopy. 07/27/2022 CT neck: with contrast which demonstrated a 5 x 4.5 x 2.5 cm mass arising from the left base of tongue injecting into the hypopharynx and displacing the epiglottis posterior and inferior with narrowing of the hypopharynx. In addition a level 2 left-sided lymph node measuring 1.7 x 1.0 x 1.0 cm suspicious for metastatic disease. June 2022 - voice changed and trouble swallowing. February 2022 - started losing weight 1999 - Colon Ca Stage 3 - 2/5 LN + [place] regimen on protocol Updated Visit, November 07, 2022: Manish returns with Jahaira. Eating is much better but taste is not back. Neutropenia resolved. Updated Visit, October 31, 2022: Manish Root returns for follow-up. He still altered taste. He has no sense for sweet foods. He continues to have intermittent mouth dryness. He denies mouth sores. His weight is over all stable. He denies fevers, chills, night sweats and signs/symptoms of infection. He complains of increase in phlegm production Updated Visit, October 25, 2022: Manish Root returns for follow-up. He received Neupogen 400 mcg on 10/19/2022. He remains on Cipro prophylaxis. He denies fevers, chills, night sweats and signs/symptoms of infection. No bleeding. He has some bruising. He states that everything tastes terrible. He complains of dry mouth. He denies any difficulty swallowing. Updated Visit, October 19, 2022: Manish returns with Jahaira and is doing well. Feeling better but is neutropenic from chemotherapy. Really re-inforced education regarding neutropenia and fevers. Updated Visit, October 01, 2022: Manish Root returns for follow-up and treatment. He remains on weekly cisplatin concurrent with radiation and overall is tolerating fairly well. He has 14 radiation treatments remaining. He states that he has no taste. He does not eat and drink enough. He denies difficulty swallowing. He denies any unusual pain. He has occasional nausea and takes the prescribed antiemetics. His weight is down. He states that he has a sinus infection and gets these regularly. He is typically treated by Dr. Nelson. He is requesting an antibiotic be called into his pharmacy. He denies fevers. Overall he is doing fairly well and wishes to proceed with treatment as planned. Updated Visit, September 10, 2022: Doing well. No side effects. Noted some improvement in ability to swallow and has gained 2 lbs. Lbas safe to continue. Updated Visit, September 03, 2022: Manish returns with his Jahaira. Ready to start chemo + RT - RT started. Ready for cisplatin. Initial Visit, August 16, 2022: Manish Root presents today Hematology and Oncology evaluation. He is a 76 year old male who presents with his significant other named Jahaira. 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 REVIEW OF SYSTEMS Per HPI and otherwise negative by full review of organ systems. ECOG PERFORMANCE STATUS: 0 PHYSICAL EXAMINATION: Vitals: BP 129/66 Pulse 58 Temp (Src) 97.5 (Temporal) Resp 16 Ht 5' 5.709 (1.67m) Wt 172 lb 3.2 oz (78.1kg) SpO2 100% BMI 28.04 kg/(m^2). Body surface area is 1.9 meters squared. Exam limited to gross visualization where appropriate. Gen.: This is an age-appropriate patient in no acute distress. Head: Appears atraumatic with no visible lesions. Eyes: Pupils equally round and reactive to light, extraocular muscles are intact. Neck: Supple. 2 cm lymph node level 2 left neck no other isamar Mouth: Masked. Respiratory: Appears to be respiring comfortably. Neurologic: Nonfocal to gross visualization. Alert and oriented 3. Psychiatric: No evidence of inappropriate anxiety or depression. Skin: Visible areas of skin without rash, lesions, wounds or petechiae. ALLERGIES: ALLERGIES No Known Allergies MEDICATIONS: ondansetron (ZOFRAN) 8 mg tablet Take 1 tablet by mouth every 8 hours as needed for nausea/vomiting. prochlorperazine (COMPAZINE) 10 mg tablet Take 1 tablet by mouth every 6 hours as needed. ergocalciferol 50,000 unit capsule (VITAMIN D2, DRISDOL) TAKE 1 CAPSULE BY MOUTH WEEKLY metFORMIN (GLUCOPHAGE) 500 mg tablet TAKE 2 TABLETS BY MOUTH EVERY MORNING and TAKE 1 TABLET BY MOUTH IN THE EVENING metoprolol succinate ER (TOPROL XL) 25 mg 24 hr tablet Take 25 mg by mouth once daily. fenofibrate (LOFIBRA) 134 mg capsule Take 134 mg by mouth once daily. Aspirin 81 mg tab Take 81 mg by mouth once daily. LABORATORY VALUES: WBC (k/uL) Date Value 11/07/2022 3.47 (L) RBC (m/uL) Date Value 11/07/2022 3.49 (L) Hemoglobin (g/dL) Date Value 11/07/2022 11.0 (L) Hematocrit (%) Date Value 11/07/2022 32.2 (L) MCV (fL) Date Value 11/07/2022 92.3 MCH (pg) Date Value 11/07/2022 31.5 MCHC (g/dL) Date Value 11/07/2022 34.2 RDW-CV (%) Date Value 11/07/2022 16.7 (H) Platelet Count (k/uL) Date Value 11/07/2022 181 MPV (fL) Date Value 11/07/2022 9.2 Glucose (mg/dL) Date Value 11/07/2022 105 (H) BUN (mg/dL) Date Value 11/07/2022 23 Creatinine (mg/dL) Date Value 11/07/2022 1.07 Sodium (mmol/L) Date Value 11/07/2022 139 Potassium (mmol/L) Date Value 11/07/2022 4.6 Chloride (mmol/L) Date Value 11/07/2022 102 CO2 (mmol/L) Date Value 11/07/2022 29 Protein, Total (g/dL) Date Value 11/07/2022 6.9 Albumin (g/dL) Date Value 11/07/2022 4.3 Calcium, Total (mg/dL) Date Value 11/07/2022 9.8 Alkaline Phosphatase (U/L) Date Value 11/07/2022 57 Bilirubin, Total (mg/dL) Date Value 11/07/2022 0.4 AST (U/L) Date Value 11/07/2022 12 (L) ALT (U/L) Date Value 11/07/2022 8 (L) DIAGNOSIS: (C01) 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) (primary encounter diagnosis) Plan: CBC + DIFF, COMP METABOLIC PANEL (D70.1, T45.1X5A) Chemotherapy-induced neutropenia (HCC) Plan: CBC + DIFF, COMP METABOLIC PANEL PAST MEDICAL HISTORY Diagnosis Date 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) 08/21/2022 Chemotherapy-induced neutropenia (HCC) 10/19/2022 Diabetes mellitus (HCC) HTN (hypertension) PAST SURGICAL HISTORY Procedure Laterality Date LAPAROSCOPIC HEMICOLECTOMY PAST SURGICAL HISTORY OF Cardiac stent placement Social History Tobacco Use Smoking status: Never Passive exposure: Never Smokeless tobacco: Never Vaping Use Vaping Use: Never used Substance Use Topics Alcohol use: Yes Comment: daily 3 beers Drug use: Not Currently No family history on file. I spent a total of 30 minutes on the date of the service which included preparing to see the patient, [id number] patient care, completing clinical documentation, performing a medically appropriate examination, counseling and educating the patient/family/caregiver, ordering medications, tests, or procedures, and independently interpreting results (not separately reported). John England MD, CPE Hematology and Oncology Services Provided at: [place], [place] CC: Dr. Yordan Morales documented in this encounter [facility] 2022 Evaluation note Diagnosis 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 Stage 3 chronic kidney disease, unspecified whether stage 3a or 3b CKD (HCC) documented in this encounter [facility]04-26-2023 History of Present illness Narrative* Maryam Hodgson APRN.RENTAL AGENT - 10/31/2022 2:30 PM EDT Images from the original note were not included. NAME: Manish Root [facility] NO.: [id number] DATE OF SERVICE: October 31, 2022 (Gokul) Some elements in this clinic note that are critical to medical decision making have been carefully reviewed and included from a prior clinic note dated: October 25, 2022. (Gokul) Some elements in this clinic note that are critical to medical decision making have been carefully reviewed and included from a prior clinic note dated: September 10, 2022. (Dr. England) Referring Provider: Dr. Татьяна Feliz Additional Clinicians involved in Manish Root's care: DIAGNOSIS: Base of Tongue squamous cell ca. 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 He has a prior history of colon cancer in 1999. July 31, 2022 - Stage : T3 N1a M0 PLAN: Ciprofloxacin prophylaxis. Finish remaining pills then stop. Needs hydration. Will give 1 L of normal saline. Labs next Saturday CBC and CMP. Possible hydration. HPI: CASE HISTORY: Reverse Chronological Order 07/31/2022 examination under anesthesia/panendoscopy on . Findings included a friable exophytic mass left base of tongue extending into the vallecula. No other significant findings on laryngoscopy. 07/27/2022 CT neck on with contrast which demonstrated a 5 x 4.5 x 2.5 cm mass arising from the left base of tongue injecting into the hypopharynx and displacing the epiglottis posterior and inferiorwith narrowing of the hypopharynx. In addition a level 2 left-sided lymph node measuring 1.7 x 1.0 x 1.0 cm suspicious for metastatic disease. June 2022 - voice changed and trouble swallowing. February 2022 - started losing weight 1999 - Colon Ca Stage 3 - 2/5 LN + Hat[place] regimen on protocol Updated Visit, October 31, 2022: Manish Root returns for follow-up. He still altered taste. He has no sense for sweet foods. He continues to have intermittent mouth dryness. He denies mouth sores. His weight is over all stable. He denies fevers, chills, night sweats and signs/symptoms of infection. He complains of increase in phlegm production Updated Visit, October 25, 2022: Manish Root returns for follow-up. He received Neupogen 400 mcg on 10/19/2022. He remains on Cipro prophylaxis. He denies fevers, chills, night sweats and signs/symptoms of infection. No bleeding.He has some bruising. He states that everything tastes terrible. He complains of dry mouth. He denies any difficulty swallowing. Updated Visit, October 19, 2022: Manish returns with [facility] and is doing well. Feeling better but is neutropenic from chemotherapy.Really re-inforced education regarding neutropenia and fevers. Updated Visit, October 01, 2022: Manish Root returns for follow-up and treatment. He remains on weekly cisplatin concurrent withradiation and overall is tolerating fairly well. He has 14 radiation treatments remaining. He states that he has no taste. He does not eat and drink enough. He denies difficulty swallowing. He deniesany unusual pain. He has occasional nausea and takes the prescribed antiemetics. His weight is down. He states that he has a sinus infection and gets these regularly. He is typically treated by Dr. Nelson. He is requesting an antibiotic be called into his pharmacy. He denies fevers. Overall he is doing fairly well and wishes to proceed with treatment as planned. Updated Visit, September 10, 2022: Doing well. No side effects. Noted some improvement in ability to swallow and has gained 2 lbs. Lbas safe to continue. Updated Visit, September 03, 2022: Manish returns with his Jahaira. Ready to start chemo + RT - RT started. Ready for cisplatin. Initial Visit, August 16, 2022: Manish Root presents today Hematology and Oncology evaluation. He is a 76 year old male who presents with his significant other named Jahaira. 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 REVIEW OF SYSTEMS Per HPI and otherwise negative by full review of organ systems. ECOG PERFORMANCE STATUS: 0 PHYSICAL EXAMINATION: Vitals: BP 120/58 Pulse 67 Temp (Src) 97.5 (Temporal) Resp 16 Ht 5' 5.709 (1.67m) Wt 172lb 6.4 oz (78.2kg) SpO2 98% BMI 28.07 kg/(m^2). Body surface area is 1.9 meters squared. Exam limited to gross visualization where appropriate due to COVID-19. Gen.: This is an age-appropriate patient in no acute distress. Head: Appears atraumatic with no visible lesions. Eyes: Pupils equally round and reactive to light, extraocular muscles are intact. Neck: Supple. 2 cm lymph node level 2 left neck no other isamar Mouth: Masked. Respiratory: Appears to be respiring comfortably. Neurologic: Nonfocal to gross visualization. Alert and oriented 3. Psychiatric: No evidence of inappropriate anxiety or depression. Skin: Visible areas of skin without rash, lesions, wounds or petechiae. ALLERGIES: ALLERGIES No Known Allergies MEDICATIONS: ciprofloxacin HCl (CIPRO) 500 mg tablet Take 1 tablet by mouth twice daily for 14 days. ondansetron (ZOFRAN) 8 mg tablet Take 1 tablet by mouth every 8 hours as needed for nausea/vomiting. prochlorperazine (COMPAZINE) 10 mg tablet Take 1 tablet by mouth every 6 hours as needed. ergocalciferol 50,000 unit capsule (VITAMIN D2, DRISDOL) TAKE 1 CAPSULE BY MOUTH WEEKLY metFORMIN (GLUCOPHAGE) 500 mg tablet TAKE 2 TABLETS BY MOUTH EVERY MORNING and TAKE 1 TABLET BY MOUTH IN THE EVENING metoprolol succinate ER (TOPROL XL) 25 mg 24 hr tablet Take 25 mg by mouth once daily. fenofibrate (LOFIBRA) 134 mg capsule Take 134 mg by mouth once daily. Aspirin 81 mg tab Take 81 mg by mouth once daily. LABORATORY VALUES: Hemoglobin (g/dL) Date Value 10/31/2022 10.8 Hematocrit (%) Date Value 10/31/2022 32.0 WBC (k/uL) Date Value 10/31/2022 2.58 Platelet Count (k/uL) Date Value 10/31/2022 164 DIAGNOSIS: (C01) 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) (primary encounter diagnosis) (D70.1, T45.1X5A) Chemotherapy-induced neutropenia (HCC) PAST MEDICAL HISTORY Diagnosis Date 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) 08/21/2022 Chemotherapy-induced neutropenia (HCC) 10/19/2022 Diabetes mellitus (HCC) HTN (hypertension) PAST SURGICAL HISTORY Procedure Laterality Date LAPAROSCOPIC HEMICOLECTOMY PAST SURGICAL HISTORY OF Cardiac stent placement Social History Tobacco Use Smoking status: Never Passive exposure: Never Smokeless tobacco: Never Vaping Use Vaping Use: Never used Substance Use Topics Alcohol use: Yes Comment: daily 3 beers Drug use: Not Currently No family history on file. Maryam Hodgson APRN.CNP Hematology and Oncology Services Provided at: [place], [place] CC: Dr. Yordan Morales I spent a total of 30 minutes on the date of the service which included preparing to see the patient, [id number] patient care, completing clinical documentation, obtaining and/or reviewing separately obtained history, performing a medically appropriate examination, counseling and educating the pat ient/family/caregiver, ordering medications, tests, or procedures, independently interpreting results (not separately reported), and communicating results to the patient/family/caregiver. 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 INTERVAL HISTORY: Doing well. Swallowing has improved. Voice somewhat hoarse although overall improved. Mild skin irritation. No other new issues or problems. ALLERGIES No Known Allergies MEDICATIONS: ondansetron (ZOFRAN) 8 mg tablet Take 1 tablet by mouth every 8 hours as needed for nausea/vomiting. prochlorperazine (COMPAZINE) 10 mg tablet Take 1 tablet by mouth every 6 hours as needed. ergocalciferol 50,000 unit capsule (VITAMIN D2, DRISDOL) TAKE 1 CAPSULE BY MOUTH WEEKLY metFORMIN (GLUCOPHAGE) 500 mg tablet TAKE 2 TABLETS BY MOUTH EVERY MORNING and TAKE 1 TABLET BY MOUTH IN THE EVENING metoprolol succinate ER (TOPROL XL) 25 mg 24 hr tablet Take 25 mg by mouth once daily. fenofibrate (LOFIBRA) 134 mg capsule Take 134 mg by mouth once daily. Aspirin 81 mg tab Take 81 mg by mouth once daily. REVIEW OF SYSTEMS: GENERAL: Appetite still decreased though improving. HEENT: Negative, except for mild dysphagia, mild hoarseness as noted above NECK: Negative for masses in the neck. RESPIRATORY: Negative for cough or shortness of breath. CARDIAC: Negative for chest pain, palpitations, murmurs, or syncopal episodes. NEURO: Negative for dizziness, headache, weakness or numbness. HEMATOLOGIC: Negative for bleeding or easy bruising. SKIN: SEE HPI. PHYSICAL EXAM: 10/31/2022 Weight 78.2 kg (172 lb 6.4 oz) Height 166.9 cm (5' 5.71 ) BSA 1.9 BMI 28.07 Temp 36.4 ?C (97.5 ?F) Pulse 67 Resp 16 BP 120/58 KPS: 100 General Appearance: Alert and oriented. No acute distress. HEENT: NCAT. Sclera anicteric. PERRL. EOMI. Oral cavity and oropharynx: Mild to moderate erythema without ulceration posterior oropharynx somewhat asymmetric tongue, no palpable suspicious areas. Neck: Normal ROM. No palpable cervical or supraclavicular adenopathy. Neuro: Speech fluent. Gait normal. No focal deficits. Skin: No rashes noted Lymphatics: No palpable lymphadenopathy. 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 Patient doing well with improvement after recent completion of radiation. No obvious clinical evidence of residual disease. He will have further close follow-up with Dr. Morales. Anticipate PET scan 12 weeks from completion of treatment. Continue supportive care. We will plan to see patient back in 3 to 4 weeks. Signed by: Yordan Feliz MD cc: Mannie Nelson [facility] [place] [id number] Maryam Hodgson [address] [place] [address] [place] [id number] documented [facility] this [facility]04[facility] History of Present illness Narrative* Maryam Hodgson APRN.RENTAL AGENT - 10/25/2022 10:01 AM EDT Images from the original note were not included. NAME: Manish Root [facility] NO.: [id number] DATE OF SERVICE: October 25, 2022 (Gokul) Some elements in this clinic note that are critical to medical decision making have been carefully reviewed and included from a prior clinic note dated: October 19, 2022. (Dr. England) Some elements in this clinic note that are critical to medical decision making have been carefully reviewed and included from a prior clinic note dated: September 10, 2022 (Dr. England) Referring Provider: Dr. Татьяна Feliz Additional Clinicians involved in Manish Root's care: DIAGNOSIS: Base of Tongue squamous cell ca. 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 He has a prior history of colon cancer in 1999. July 31, 2022 - Stage : T3 N1a M0 PLAN: Continue Ciprofloxacin prophylaxis. Neupogen 480 mcg x 1 today Needs hydration. Will give 1 L of normal saline. Labs next Saturday CBC and CMP. Possible hydration. HPI: CASE HISTORY: Reverse Chronological Order 07/31/2022 examination under anesthesia/panendoscopy on . Findings included a friable exophytic mass left base of tongue extending into the vallecula. No other significant findings on laryngoscopy. 07/27/2022 CT neck on with contrast which demonstrated a 5 x 4.5 x 2.5 cm mass arising from the left base of tongue injecting into the hypopharynx and displacing the epiglottis posterior and inferiorwith narrowing of the hypopharynx. In addition a level 2 left-sided lymph node measuring 1.7 x 1.0 x 1.0 cm suspicious for metastatic disease. June 2022 - voice changed and trouble swallowing. February 2022 - started losing weight 2000 - Colon Ca Stage 3 - 2/5 LN + [place] regimen on protocol Updated Visit, October 25, 2022: Manish Root returns for follow-up. He received Neupogen 400 mcg on 10/19/2022. He remains on Cipro prophylaxis. He denies fevers, chills, night sweats and signs/symptoms of infection. No bleeding.He has some bruising. He states that everything tastes terrible. He complains of dry mouth. He denies any difficulty swallowing. Updated Visit, October 19, 2022: Manish returns with Jahaira and is doing well. Feeling better but is neutropenic from chemotherapy.Really re-inforced education regarding neutropenia and fevers. Updated Visit, October 01, 2022: Manish Root returns for follow-up and treatment. He remains on weekly cisplatin concurrent withradiation and overall is tolerating fairly well. He has 14 radiation treatments remaining. He states that he has no taste. He does not eat and drink enough. He denies difficulty swallowing. He deniesany unusual pain. He has occasional nausea and takes the prescribed antiemetics. His weight is down. He states that he has a sinus infection and gets these regularly. He is typically treated by Dr. Nelson. He is requesting an antibiotic be called into his pharmacy. He denies fevers. Overall he is doing fairly well and wishes to proceed with treatment as planned. Updated Visit, September 10, 2022: Doing well. No side effects. Noted some improvement in ability to swallow and has gained 2 lbs. Lbas safe to continue. Updated Visit, September 03, 2022: Manish returns with his Jahaira. Ready to start chemo + RT - RT started. Ready for cisplatin. Initial Visit, August 16, 2022: Manish Root presents today Hematology and Oncology evaluation. He is a 76 year old male who presents with his significant other named Jahaira. 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 REVIEW OF SYSTEMS Per HPI and otherwise negative by full review of organ systems. ECOG PERFORMANCE STATUS: 0 PHYSICAL EXAMINATION: Vitals: BP 135/64 Pulse 63 Temp (Src) 97 (Temporal) Resp 16 Ht 5' 5.709 (1.67m) Wt 174 lb 12.8 oz (79.3kg) SpO2 99% BMI 28.46 kg/(m^2). Body surface area is 1.92 meters squared. Exam limited to gross visualization where appropriate due to COVID-19. Gen.: This is an age-appropriate patient in no acute distress. Head: Appears atraumatic with no visible lesions. Eyes: Pupils equally round and reactive to light, extraocular muscles are intact. Neck: Supple. 2 cm lymph node level 2 left neck no other isamar Mouth: Masked. Respiratory: Appears to be respiring comfortably. Neurologic: Nonfocal to gross visualization. Alert and oriented 3. Psychiatric: No evidence of inappropriate anxiety or depression. Skin: Visible areas of skin without rash, lesions, wounds or petechiae. ALLERGIES: ALLERGIES No Known Allergies MEDICATIONS: ciprofloxacin HCl (CIPRO) 500 mg tablet Take 1 tablet by mouth twice daily for 14 days. ondansetron (ZOFRAN) 8 mg tablet Take 1 tablet by mouth every 8 hours as needed for nausea/vomiting. prochlorperazine (COMPAZINE) 10 mg tablet Take 1 tablet by mouth every 6 hours as needed. ergocalciferol 50,000 unit capsule (VITAMIN D2, DRISDOL) TAKE 1 CAPSULE BY MOUTH WEEKLY metFORMIN (GLUCOPHAGE) 500 mg tablet TAKE 2 TABLETS BY MOUTH EVERY MORNING and TAKE 1 TABLET BY MOUTH IN THE EVENING metoprolol succinate ER (TOPROL XL) 25 mg 24 hr tablet Take 25 mg by mouth once daily. fenofibrate (LOFIBRA) 134 mg capsule Take 134 mg by mouth once daily. Aspirin 81 mg tab Take 81 mg by mouth once daily. LABORATORY VALUES: Hemoglobin (g/dL) Date Value 10/25/2022 10.2 Hematocrit (%) Date Value 10/25/2022 30.2 WBC (k/uL) Date Value 10/25/2022 1.53 Platelet Count (k/uL) Date Value 10/25/2022 129 DIAGNOSIS: (C01) 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) (primary encounter diagnosis) (D70.1, T45.1X5A) Chemotherapy-induced neutropenia (HCC) PAST MEDICAL HISTORY Diagnosis Date 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) 08/21/2022 Chemotherapy-induced neutropenia (HCC) 10/19/2022 Diabetes mellitus (HCC) HTN (hypertension) PAST SURGICAL HISTORY Procedure Laterality Date LAPAROSCOPIC HEMICOLECTOMY PAST SURGICAL HISTORY OF Cardiac stent placement Social History Tobacco Use Smoking status: Never Passive exposure: Never Smokeless tobacco: Never Vaping Use Vaping Use: Never used Substance Use Topics Alcohol use: Yes Comment: daily 3 beers Drug use: Not Currently History reviewed. No pertinent family history. Maryam Hodgson APRN.CNP Hematology and Oncology Services Provided at: [place], [place] CC: Dr. Yordan Morales I spent a total of 30 minutes on the date of the service which included preparing to see the patient, [id number] patient care, completing clinical documentation, obtaining and/or reviewing separately obtained history, performing a medically appropriate examination, counseling and educating the pat ient/family/caregiver, ordering medications, tests, or procedures, independently interpreting results (not separately reported), and communicating results to the patient/family/caregiver. 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 CLINICAL SUMMARY: The patient tolerated radiation with moderate mucositis, altered taste dry mouth and mild radiation related dermatitis and fatigue as expected. No other issues. The patient was ableto complete treatment as intended without break interruption or modification of prescription plan. The disease response will be assessed in clinic. The patient will be seen again in 2 weeks for post radiation follow-up. Staff Physician Jeyson Feliz M.D. / KG 33:18 PM Electronically Signed cc: Dr. Jacquelyn Morales documented in this encounterR[facility]04-14-[facility]23 History of Past illness Narrative* Problem Noted Date Diagnosed Date Resolved Date Chemotherapy-induced neutropenia 10/19/2022 10/23/2023 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 04/28/2015 documented as of this encounter (statuses as of 10/24/2023) [facility] [facility] History of Present illness Narrative* Dee Gil, RD - 10/19/2022 10:39 AM EDT Oncology Nutrition Therapy Progress Note RECOMMENDED MALNUTRITION DIAGNOSIS: NO MALNUTRITION IDENTIFIED Some elements copied from my note on 09/21/2022, have been updated and all reflect current decision making from today, 10/19/2022 Nutrition Intervention: -encouraged small frequent meals and snacks -encouraged compliance with tips for taste changes -encouraged adequate hydration Nutrition Monitoring & Evaluation: -PO Intake -Wt status -BM's -Biochemical Markers -Plan of care Date of last encounter: September 21, 2022 Patient met goal(s): Partially Patient's symptoms are: Oral: taste changes Pt presents for nutrition counseling follow up. Pt currently being treated with RT, cisplatin. Pt denies any current chewing/swallowing issues. Pt denies any current N/V/D/C. Pt reports despite everything tasting terrible he continues to eat. Attempted to review strategies for taste changes, however, pt states I know what to do. Encouraged pt to maintain good po. Patient declines further nutrition follow ups at this time. READINESS TO LEARN Cognitive ability: Alert and oriented Motivation to learn: Disinterested / avoidant Family support: Low - Inconsistent family involvement Instruction provided to: Patient Patient learns best by: Individual Instruction Factors affecting learning: None Physical limitations affecting learning: None Educational materials provided: none this visit Need for Follow up: prn Referred by: Agustín BARROS Billing Type: Re-assess/15 min 1 unit Billed Time: 15 minutes Signed by: Dee Gil MS, RDN, LD documented in this encounterRiver[facility] Institute04-14-[facility]23 Instructions* Patient Instructions* John England MD - 10/19/2022 10:25 AM EDT Ciproflox prophylaxis. Neupogen 480 mcg x 1 today Needs to hydrate. Labs next Saturday CBC, CMP, possible hydration Stay for results - see Maryam documented in this encounterRiverview Health Institute04-14-2023 History of Present illness Narrative* John England MD - 10/19/2022 10:05 AM EDT Images from the original note were not included. NAME: Manish Root [facility] NO.: [id number] DATE OF SERVICE: October 19, 2022 (Jacquelyn) Some elements in this clinic note that are critical to medical decision making have been carefully reviewed and included from a prior clinic note dated: October 01, 2022 (Gokul) Some elements in this clinic note that are critical to medical decision making have been carefully reviewed and included from a prior clinic note dated: September 10, 2022 (Dr. England) Referring Provider: Dr. Татьяна Feliz Additional Clinicians involved in Manish Root's care: DIAGNOSIS: Base of Tongue squamous cell ca. 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 He has a prior history of colon cancer in 1999. July 31, 2022 - Stage : T3 N1a M0 PLAN: Ciproflox prophylaxis. Neupogen 480 mcg x 1 today Needs to hydrate. Labs next Saturday CBC, CMP, possible hydration Stay for results - see Maryam HPI: CASE HISTORY: Reverse Chronological Order 07/31/2022 examination under anesthesia/panendoscopy on . Findings included a friable exophytic mass left base of tongue extending into the vallecula. No other significant findings on laryngoscopy. 07/27/2022 CT neck on with contrast which demonstrated a 5 x 4.5 x 2.5 cm mass arising from the left base of tongue injecting into the hypopharynx and displacing the epiglottis posterior and inferiorwith narrowing of the hypopharynx. In addition a level 2 left-sided lymph node measuring 1.7 x 1.0 x 1.0 cm suspicious for metastatic disease. June 2022 - voice changed and trouble swallowing. February 2022 - started losing weight 1999 - Colon Ca Stage 3 - 2/5 LN + [place] regimen on protocol Updated Visit, October 19, 2022: Manish returns with Jahaira and is doing well. Feeling better but is neutropenic from chemotherapy.Really re-inforced education regarding neutropenia and fevers. Updated Visit, October 01, 2022: Manish Root returns for follow-up and treatment. He remains on weekly cisplatin concurrent withradiation and overall is tolerating fairly well. He has 14 radiation treatments remaining. He states that he has no taste. He does not eat and drink enough. He denies difficulty swallowing. He deniesany unusual pain. He has occasional nausea and takes the prescribed antiemetics. His weight is down. He states that he has a sinus infection and gets these regularly. He is typically treated by Dr. Nelson. He is requesting an antibiotic be called into his pharmacy. He denies fevers. Overall he is doing fairly well and wishes to proceed with treatment as planned. Updated Visit, September 10, 2022: Doing well. No side effects. Noted some improvement in ability to swallow and has gained 2 lbs. Lbas safe to continue. Updated Visit, September 03, 2022: Manish returns with his Jahaira. Ready to start chemo + RT - RT started. Ready for cisplatin. Initial Visit, August 16, 2022: Manish Root presents today Hematology and Oncology evaluation. He is a 76 year old male who presents with his significant other named Jahaira. 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 REVIEW OF SYSTEMS Per HPI and otherwise negative by full review of organ systems. ECOG PERFORMANCE STATUS: 0 PHYSICAL EXAMINATION: Vitals: BP 129/64 Pulse 56 Temp (Src) 97.1 (Temporal) Resp 16 Ht 5' 5.709 (1.67m) Wt 173lb 9.6 oz (78.7kg) SpO2 98% BMI 28.27 kg/(m^2). Body surface area is 1.91 meters squared. Exam limited to gross visualization where appropriate due to COVID-19. Gen.: This is an age-appropriate patient in no acute distress. Head: Appears atraumatic with no visible lesions. Eyes: Pupils equally round and reactive to light, extraocular muscles are intact. Neck: Supple. 2 cm lymph node level 2 left neck no other isamar Mouth: Masked. Respiratory: Appears to be respiring comfortably. Neurologic: Nonfocal to gross visualization. Alert and oriented 3. Psychiatric: No evidence of inappropriate anxiety or depression. Skin: Visible areas of skin without rash, lesions, wounds or petechiae. ALLERGIES: ALLERGIES No Known Allergies MEDICATIONS: ondansetron (ZOFRAN) 8 mg tablet Take 1 tablet by mouth every 8 hours as needed for nausea/vomiting. prochlorperazine (COMPAZINE) 10 mg tablet Take 1 tablet by mouth every 6 hours as needed. ergocalciferol 50,000 unit capsule (VITAMIN D2, DRISDOL) TAKE 1 CAPSULE BY MOUTH WEEKLY metFORMIN (GLUCOPHAGE) 500 mg tablet TAKE 2 TABLETS BY MOUTH EVERY MORNING and TAKE 1 TABLET BY MOUTH IN THE EVENING metoprolol succinate ER (TOPROL XL) 25 mg 24 hr tablet Take 25 mg by mouth once daily. fenofibrate (LOFIBRA) 134 mg capsule Take 134 mg by mouth once daily. Aspirin 81 mg tab Take 81 mg by mouth once daily. ciprofloxacin HCl (CIPRO) 500 mg tablet Take 1 tablet by mouth twice daily for 14 days. LABORATORY VALUES: WBC (k/uL) Date Value 10/19/2022 1.29 (L) RBC (m/uL) Date Value 10/19/2022 3.38 (L) Hemoglobin (g/dL) Date Value 10/19/2022 10.4 (L) Hematocrit (%) Date Value 10/19/2022 30.6 (L) MCV (fL) Date Value 10/19/2022 90.5 MCH (pg) Date Value 10/19/2022 30.8 MCHC (g/dL) Date Value 10/19/2022 34.0 RDW-CV (%) Date Value 10/19/2022 13.6 Platelet Count (k/uL) Date Value 10/19/2022 83 (L) MPV (fL) Date Value 10/19/2022 9.1 Glucose (mg/dL) Date Value 10/19/2022 119 (H) BUN (mg/dL) Date Value 10/19/2022 24 Creatinine (mg/dL) Date Value 10/19/2022 1.27 (H) Sodium (mmol/L) Date Value 10/19/2022 135 (L) Potassium (mmol/L) Date Value 10/19/2022 3.9 Chloride (mmol/L) Date Value 10/19/2022 97 CO2 (mmol/L) Date Value 10/19/2022 32 (H) Protein, Total (g/dL) Date Value 10/19/2022 6.5 Albumin (g/dL) Date Value 10/19/2022 4.1 Calcium, Total (mg/dL) Date Value 10/19/2022 8.8 Alkaline Phosphatase (U/L) Date Value 10/19/2022 54 Bilirubin, Total (mg/dL) Date Value 10/19/2022 0.7 AST (U/L) Date Value 10/19/2022 16 ALT (U/L) Date Value 10/19/2022 17 DIAGNOSIS: (C01) 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) (primary encounter diagnosis) (D70.1, T45.1X5A) Chemotherapy-induced neutropenia (HCC) PAST MEDICAL HISTORY Diagnosis Date 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) 08/21/2022 Chemotherapy-induced neutropenia (HCC) 10/19/2022 Diabetes mellitus (HCC) HTN (hypertension) PAST SURGICAL HISTORY Procedure Laterality Date LAPAROSCOPIC HEMICOLECTOMY PAST SURGICAL HISTORY OF Cardiac stent placement Social History Tobacco Use Smoking status: Never Passive exposure: Never Smokeless tobacco: Never Vaping Use Vaping Use: Never used Substance Use Topics Alcohol use: Yes Comment: daily 3 beers Drug use: Not Currently History reviewed. No pertinent family history. I spent a total of 30 minutes on the date of the service which included preparing to see the patient, [id number] patient care, completing clinical documentation, obtaining and/or reviewing separately obtained history, counseling and educating the patient/family/caregiver, ordering medications, cliff ts, or procedures, and independently interpreting results (not separately reported). John England MD, CPE Hematology and Oncology Services Provided at: [place], [place] CC: Dr. 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 COURSE: definitive and concurrent chemotherapy Area Treated: Oropharynx and bilateral neck Current dose: 6200 Gy in 31 fx Planned dose: 7000 Gy in 35 fx SUBJECTIVE: Patient having increased skin irritation. Also continued taste ulcerating his work intake. Denies dyspnea. Denies cough. PHYSICAL EXAM: 10/15/22 1040 BP: 126/79 Pulse: 83 Resp: 16 Temp: 36.3 C (97.4 F) SpO2: 100% Weight: 78 kg (172 lb) KPS: 90 General Appearance: Alert and oriented. No acute distress. Radiation dermatitis: Minimal Mucositis: Mild posterior oropharynx Oral cavity and oropharynx: No lesions. IMAGING/LAB RESULTS: Hemoglobin (g/dL) Date Value 10/08/2022 11.8 Hematocrit (%) Date Value 10/08/2022 34.5 WBC (k/uL) Date Value 10/08/2022 1.75 Platelet Count (k/uL) Date Value 10/08/2022 117 TOXICITY ASSESSMENT (CTCv4): Dysphagia:grade 1 - Symptomatic, able to eat regular diet Mucositis: grade 1 Radiation dermatitis: grade 1 Trismus: grade 0 - No symptoms Voice Changes:grade 1 - Mild or intermittent change from normal voice Xerostomia: grade 0 - No symptoms Treatment chart checked: Yes Patient treatment site reviewed and verified:Yes Port films reviewed and current:Yes Medications started: None ASSESSMENT: Patient doing well. CBCT continuing to show good response. Chart and imaging reviewed. Continue radiation as outlined. Patient will finish this week. Follow-up care discussed. Yordan Feliz MD documented in this encounterRiverview Health Institute04-04-2023 Miscellaneous Notes* Telephone Encounter - Diana García LPN - 10/09/2022 3:15 PM EDT Yes correct-clavicle, sternum, nipples. In the past, a previous infusion nurse said that dexamethasone can cause this skin reaction which I did tell Manish today. Naya Silvestre, pharmacist did confirm theabove side effect of redness can be due to dexamethasone. Diana García LPN * Telephone Encounter - John England MD - 10/09/2022 3:00 PM EDT I'm not sure - It doesn't seem like a medication - upper torso meaning to the clavicles, nipple line, sternum? * Telephone Encounter - Diana García LPN - 10/09/2022 11:31 AM EDT Manish is here for radiation therapy with concerns of skin redness from his cheeks down to his upper trunk. He said he noticed the redness last night. He denies pain, skin itching, change with medications or soaps. He did receive chemotherapy yesterday, cisplatin along with IV magnesium 2 mg and IV dexamethasone 10mg. I reviewed with him that the redness around his neck could be due to the radiation he is receiving and that the treatment side effects are cumulative and the skin reaction might increase/worsen as the treatment continues. He is currently using Calendula, Aquaphor, and aloe. VS: BP 138/78- HR 62-T 96.9- SpO2 97% Do you have any further recommendations? 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 COURSE: definitive and concurrent chemotherapy Area Treated: Oropharynx and bilateral neck Current dose: 5200 Gy in 26 fx Planned dose: 6000 Gy in 30 fx SUBJECTIVE: Patient's main issues are altered taste for tasting off. Also dry sore mouth. Denies other significant pain. Still able to eat solids well. Denies dyspnea. Denies significant cough. PHYSICAL EXAM: 10/08/22 1048 BP: 145/80 Pulse: 67 Resp: 16 Temp: 36.2 C (97.2 F) SpO2: 99% Weight: 79.7 kg (175 lb 9.6 oz) KPS: 90 General Appearance: Alert and oriented. No acute distress. Radiation dermatitis: Minimal Mucositis: Mild posterior oropharynx Oral cavity and oropharynx: No lesions. IMAGING/LAB RESULTS: Hemoglobin (g/dL) Date Value 10/01/2022 12.3 Hematocrit (%) Date Value 10/01/2022 36.2 WBC (k/uL) Date Value 10/01/2022 2.25 Platelet Count (k/uL) Date Value 10/01/2022 97 TOXICITY ASSESSMENT (CTCv4): Dysphagia:grade 1 - Symptomatic, able to eat regular diet Mucositis: grade 1 Radiation dermatitis: grade 1 Trismus: grade 0 - No symptoms Voice Changes:grade 1 - Mild or intermittent change from normal voice Xerostomia: grade 0 - No symptoms Treatment chart checked: Yes Patient treatment site reviewed and verified:Yes Port films reviewed and current:Yes Medications started: None ASSESSMENT: Patient doing well. CBCT continuing to show good response. Chart and imaging reviewed. Continue radiation as outlined. Yordan Feliz MD documented in this encounterRiverview Health Institute03-31-2023 History of Present illness Narrative* Dee Gil RD - 10/05/2022 10:45 AM EDT Oncology Nutrition Therapy Progress Note Attemped to see patient, however patient left after radiation treatment and did not stay for appointment with dietitian. Signed by: Dee Gil MS, RDN, LD documented in this encounterRiverview Health Institute03-27-2023 History of Present illness Narrative* Maryam Hodgson APRN.RENTAL AGENT - 10/01/2022 11:26 AM EDT Images from the original note were not included. NAME: Manish Root [facility] NO.: [id number] DATE OF SERVICE: October 01, 2022 (Gokul) Some elements in this clinic note that are critical to medical decision making have been carefully reviewed and included from a prior clinic note dated: September 10, 2022 (Dr. England) Referring Provider: Dr. Татьяна Feliz Additional Clinicians involved in Manish Root's care: DIAGNOSIS: Base of Tongue squamous cell ca. 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 He has a prior history of colon cancer in 1999. July 31, 2022 - Stage : T3 N1a M0 PLAN: Continue Cisplatin weekly concurrent with radiation. Today and again in 1 week. Follow up with Dr. England on patients last day of radiation. HPI: CASE HISTORY: Reverse Chronological Order 07/31/2022 examination under anesthesia/panendoscopy on . Findings included a friable exophytic mass left base of tongue extending into the vallecula. No other significant findings on laryngoscopy. 07/27/2022 CT neck on with contrast which demonstrated a 5 x 4.5 x 2.5 cm mass arising from the left base of tongue injecting into the hypopharynx and displacing the epiglottis posterior and inferiorwith narrowing of the hypopharynx. In addition a level 2 left-sided lymph node measuring 1.7 x 1.0 x 1.0 cm suspicious for metastatic disease. June 2022 - voice changed and trouble swallowing. February 2022 - started losing weight 1999 - Colon Ca Stage 3 - 2/5 LN + [place] regimen on protocol Updated Visit, October 01, 2022: Manish Root returns for follow-up and treatment. He remains on weekly cisplatin concurrent withradiation and overall is tolerating fairly well. He has 14 radiation treatments remaining. He states that he has no taste. He does not eat and drink enough. He denies difficulty swallowing. He deniesany unusual pain. He has occasional nausea and takes the prescribed antiemetics. His weight is down. He states that he has a sinus infection and gets these regularly. He is typically treated by Dr. Nelson. He is requesting an antibiotic be called into his pharmacy. He denies fevers. Overall he is doing fairly well and wishes to proceed with treatment as planned. Updated Visit, September 10, 2022: Doing well. No side effects. Noted some improvement in ability to swallow and has gained 2 lbs. Lbas safe to continue. Updated Visit, September 03, 2022: Manish returns with his Jahaira. Ready to start chemo + RT - RT started. Ready for cisplatin. Initial Visit, August 16, 2022: Manish Root presents today Hematology and Oncology evaluation. He is a 76 year old male who presents with his significant other named Jahaira. 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 REVIEW OF SYSTEMS Per HPI and otherwise negative by full review of organ systems. ECOG PERFORMANCE STATUS: 0 PHYSICAL EXAMINATION: Vitals: BP 129/78 Pulse 74 Temp (Src) 96.9 (Temporal) Resp 16 Ht 5' 5.709 (1.67m) Wt 177lb (80.3kg) SpO2 99% BMI 28.82 kg/(m^2). Body surface area is 1.93 meters squared. Exam limited to gross visualization where appropriate due to COVID-19. Gen.: This is an age-appropriate patient in no acute distress. Head: Appears atraumatic with no visible lesions. Eyes: Pupils equally round and reactive to light, extraocular muscles are intact. Neck: Supple. 2 cm lymph node level 2 left neck no other isamar Mouth: Masked. Respiratory: Appears to be respiring comfortably. Neurologic: Nonfocal to gross visualization. Alert and oriented 3. Psychiatric: No evidence of inappropriate anxiety or depression. Skin: Visible areas of skin without rash, lesions, wounds or petechiae. ALLERGIES: ALLERGIES No Known Allergies MEDICATIONS: ondansetron (ZOFRAN) 8 mg tablet Take 1 tablet by mouth every 8 hours as needed for nausea/vomiting. prochlorperazine (COMPAZINE) 10 mg tablet Take 1 tablet by mouth every 6 hours as needed. ergocalciferol 50,000 unit capsule (VITAMIN D2, DRISDOL) TAKE 1 CAPSULE BY MOUTH WEEKLY metFORMIN (GLUCOPHAGE) 500 mg tablet TAKE 2 TABLETS BY MOUTH EVERY MORNING and TAKE 1 TABLET BY MOUTH IN THE EVENING metoprolol succinate ER (TOPROL XL) 25 mg 24 hr tablet Take 25 mg by mouth once daily. fenofibrate (LOFIBRA) 134 mg capsule Take 134 mg by mouth once daily. Aspirin 81 mg tab Take 81 mg by mouth once daily. LABORATORY VALUES: Hemoglobin (g/dL) Date Value 10/01/2022 12.3 Hematocrit (%) Date Value 10/01/2022 36.2 WBC (k/uL) Date Value 10/01/2022 2.25 Platelet Count (k/uL) Date Value 10/01/2022 97 DIAGNOSIS: (C01) 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) (primary encounter diagnosis) PAST MEDICAL HISTORY Diagnosis Date 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) 08/21/2022 Diabetes mellitus (HCC) HTN (hypertension) PAST SURGICAL HISTORY Procedure Laterality Date LAPAROSCOPIC HEMICOLECTOMY PAST SURGICAL HISTORY OF Cardiac stent placement Social History Tobacco Use Smoking status: Never Passive exposure: Never Smokeless tobacco: Never Vaping Use Vaping Use: Never used Substance Use Topics Alcohol use: Yes Comment: daily 3 beers Drug use: Not Currently No family history on file. Maryam Hodgson APRN.[facility] Hematology and Oncology Services Provided at: [facility], [place], [place] CC: Dr. Yordan Morales I spent a total of 30 minutes on the date of the service which included preparing to see the patient, [id number] patient care, completing clinical documentation, obtaining and/or reviewing separately obtained history, performing a medically appropriate examination, counseling and educating the pat ient/family/caregiver, ordering medications, tests, or procedures, independently interpreting results (not separately reported), and communicating results to the patient/family/caregiver. 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 COURSE: definitive and concurrent chemotherapy Area Treated: Oropharynx and bilateral neck Current dose: 4200 Gy in 21fx Planned dose: 6000 Gy in 30 fx SUBJECTIVE: Decreased appetite due to taste. Denies pain. Had other issues going on did not eat as much because of this this weekend. Mild diarrhea. PHYSICAL EXAM: 10/01/22 1047 BP: 129/78 Pulse: 74 Resp: 16 Temp: 36.1 C (96.9 F) SpO2: 99% Weight: 80.6 kg (177 lb 12.8 oz) KPS: 90 General Appearance: Alert and oriented. No acute distress. Radiation dermatitis: No Mucositis: No Oral cavity and oropharynx: No lesions. IMAGING/LAB RESULTS: Hemoglobin (g/dL) Date Value 09/24/2022 13.2 Hematocrit (%) Date Value 09/24/2022 39.3 WBC (k/uL) Date Value 09/24/2022 4.86 Platelet Count (k/uL) Date Value 09/24/2022 173 TOXICITY ASSESSMENT (CTCv4): Dysphagia:grade 1 - Symptomatic, able to eat regular diet Mucositis: grade 0 - No symptoms Radiation dermatitis: grade 0 - No symptoms Trismus: grade 0 - No symptoms Voice Changes:grade 1 - Mild or intermittent change from normal voice Xerostomia: grade 0 - No symptoms Treatment chart checked: Yes Patient treatment site reviewed and verified:Yes Port films reviewed and current:Yes Medications started: None ASSESSMENT: Patient doing well. Discussed increasing caloric intake. Continue aggressive oral hydration. Reviewed of CBCT shows continuing response. Chart and imaging reviewed. Continue radiation as outlined. 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 COURSE: definitive and concurrent chemotherapy Area Treated: Oropharynx and bilateral neck Current dose: 3200 Gy in 16 fx Planned dose: 6000 Gy in 30 fx SUBJECTIVE: Doing well. Taste is worse this week. No other new problems. PHYSICAL EXAM: 09/24/22 1040 BP: 133/68 Pulse: 83 Resp: 18 Temp: 36.4 C (97.6 F) SpO2: 98% Weight: 83.5 kg (184 lb) KPS: 90 General Appearance: Alert and oriented. No acute distress. Radiation dermatitis: No Mucositis: No Oral cavity and oropharynx: No lesions. Slight asymmetry of tongue. Left level 2 lymph node palpable and smaller IMAGING/LAB RESULTS: Hemoglobin (g/dL) Date Value 09/17/2022 13.4 Hematocrit (%) Date Value 09/17/2022 39.8 WBC (k/uL) Date Value 09/17/2022 5.12 Platelet Count (k/uL) Date Value 09/17/2022 198 TOXICITY ASSESSMENT (CTCv4): Dysphagia:grade 1 - Symptomatic, able to eat regular diet Mucositis: grade 0 - No symptoms Radiation dermatitis: grade 0 - No symptoms Trismus: grade 0 - No symptoms Voice Changes:grade 1 - Mild or intermittent change from normal voice Xerostomia: grade 0 - No symptoms Treatment chart checked: Yes Patient treatment site reviewed and verified:Yes Port films reviewed and current:Yes Medications started: None ASSESSMENT: Patient doing well. CBCT shows continuing response. Chart and imaging reviewed. Continue radiation as outlined. documented in this encounterRiverview Health Institute03-17-2023 History of Present illness Narrative* Deemart Gil, RD - 09/21/2022 10:06 AM EDT Oncology Nutrition Therapy Reassessment RECOMMENDED MALNUTRITION DIAGNOSIS: NO MALNUTRITION IDENTIFIED Some elements copied from my note on 08/20/2022, have been updated and all reflect current decision making from today, 09/21/2022 Nutrition Diagnosis: Increased protein and energy needs related to hypermetabolic disease process as evidenced by need for weight maintenance and preservation of muscle mass. Nutrition Intervention: -aim for small frequent meals and snacks -adjust textures of foods as needed if swallowing becomes painful -discussed supplementation -boost plus prn -discussed likely need to schedule routinely -encouraged adequate hydration -reviewed tips for taste changes Nutrition Monitoring & Evaluation: -PO Intake -Wt status -BM's -Biochemical Markers -Plan of care Date of last encounter: August 20, 2022 Patient met goal(s): Yes Patient's symptoms are: Oral: taste changes Pt presents for nutrition counseling for squamous cell carcinoma of the left base of tongue. Pt is currently being treated with RT, weekly cisplatin. Pt denies any chewing/swallowing issues, denies current N/V/D/C. Pt reports good appetite and intakes despite taste changes. Attempted to review above interventions, pt frequently stated I know what to do. 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 Pt also states he has list of appointments and at this time has not requested to cancel. Dietitian remains available. Thank you for allowing me to participate in the care of this pt. Readiness to Learn: Cognitive ability: Alert and oriented Motivation to learn: Disinterested / avoidant Reluctant Family support: Unable to assess - Family not present Instruction provided to: Patient Patient learns best by: Individual Instruction Factors affecting learning: None Physical limitations affecting learning: None Educational materials provided: Creative Eating during Illness and Recovery Anthropometrics: Height: Last 1 Encounter Ht Readings: Date: Ht: 09/10/2022 166.9 cm (5' 5.71 ) Current weight: Last 1 Encounter Wt Readings: Date: Wt: 09/17/2022 84.8 kg (187 lb) Estimated body mass index is 30.45 kg/m as calculated from the following: Height as of 09/10/22: 166.9 cm (5' 5.71 ). Weight as of 09/17/22: 84.8 kg (187 lb). Resting Metabolic Rate: 1511 Weight Change: n/a, weight stable since initial assessment Dosing Weight: 84.8 kg Estimated kilocalorie needs: 8649-8364 kilocalories determined by 25-30 kcal/kg Estimated protein needs: 85-102 grams determined by 1.0-1.2 g/kg Current weight Estimated fluid needs: ~0257-9209 milliliters based on 1 mL per kcal (unless otherwise noted) Nutrition Focused Physical Exam: Unable to perform exam due to patient/family declined, will re-attempt during reassessment. Potential Signs of Inflammation: chronic condition Allergies: Patient has no known allergies. Medications: Current Outpatient Medications Medication Sig Dispense Refill ondansetron (ZOFRAN) 8 mg tablet Take 1 tablet by mouth every 8 hours as needed for nausea/vomiting. 90 tablet 1 prochlorperazine (COMPAZINE) 10 mg tablet Take 1 tablet by mouth every 6 hours as needed. 100 tablet 1 ergocalciferol 50,000 unit capsule (VITAMIN D2, DRISDOL) TAKE 1 CAPSULE BY MOUTH WEEKLY metFORMIN (GLUCOPHAGE) 500 mg tablet TAKE 2 TABLETS BY MOUTH EVERY MORNING and TAKE 1 TABLET BY MOUTH IN THE EVENING metoprolol succinate ER (TOPROL XL) 25 mg 24 hr tablet Take 25 mg by mouth once daily. fenofibrate (LOFIBRA) 134 mg capsule Take 134 mg by mouth once daily. Aspirin 81 mg tab Take 81 mg by mouth once daily. No current facility-administered medications for this visit. 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 COURSE: definitive and concurrent chemotherapy Area Treated: Oropharynx and bilateral neck Current dose: 2200 Gy in 11 fx Planned dose: 6000 Gy in 30 fx SUBJECTIVE: Doing well. Is having some taste issues. No significant neck or mucositis related pain.Denies dyspnea. PHYSICAL EXAM: KPS: 90 General Appearance: Alert and oriented. No acute distress. Radiation dermatitis: No Mucositis: No Oral cavity and oropharynx: No lesions. Slight asymmetry of tongue. Left level 2 lymph node palpable and smaller IMAGING/LAB RESULTS: Hemoglobin (g/dL) Date Value 09/10/2022 13.6 Hematocrit (%) Date Value 09/10/2022 41.0 WBC (k/uL) Date Value 09/10/2022 7.85 Platelet Count (k/uL) Date Value 09/10/2022 287 TOXICITY ASSESSMENT (CTCv4): Dysphagia:grade 1 - Symptomatic, able to eat regular diet Mucositis: grade 0 - No symptoms Radiation dermatitis: grade 0 - No symptoms Trismus: grade 0 - No symptoms Voice Changes:grade 1 - Mild or intermittent change from normal voice Xerostomia: grade 0 - No symptoms Treatment chart checked: Yes Patient treatment site reviewed and verified:Yes Port films reviewed and current:Yes Medications started: None ASSESSMENT: Patient doing well. CBCT shows tumor is continuing to respond. Chart and imaging reviewed. Continue radiation as outlined. 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 COURSE: definitive and concurrent chemotherapy Area Treated: Oropharynx and bilateral neck Current dose: 1200 Gy in 6 fx Planned dose: 6000 Gy in 30 fx SUBJECTIVE: Doing well. Swallowing better. PHYSICAL EXAM: KPS: 90 General Appearance: Alert and oriented. No acute distress. Radiation dermatitis: No Mucositis: No Oral cavity and oropharynx: No lesions. Slight asymmetry of tongue. Left level 2 lymph node palpable nontender IMAGING/LAB RESULTS: Hemoglobin (g/dL) Date Value 09/10/2022 13.6 Hematocrit (%) Date Value 09/10/2022 41.0 WBC (k/uL) Date Value 09/10/2022 7.85 Platelet Count (k/uL) Date Value 09/10/2022 287 TOXICITY ASSESSMENT (CTCv4): Dysphagia:grade 1 - Symptomatic, able to eat regular diet Mucositis: grade 0 - No symptoms Radiation dermatitis: grade 0 - No symptoms Trismus: grade 0 - No symptoms Voice Changes:grade 1 - Mild or intermittent change from normal voice Xerostomia: grade 0 - No symptoms Treatment chart checked: Yes Patient treatment site reviewed and verified:Yes Port films reviewed and current:Yes Medications started: None ASSESSMENT: Patient doing well. CBCT shows tumor is responding. Chart and imaging reviewed. Continue radiation as outlined. documented in this encounterRiverview Health Institute03-03-2023 Miscellaneous Notes* Telephone Encounter - ISH Waite - 09/07/2022 12:11 PM EST SOCIAL WORK FOLLOW UP NOTE: [facility] Date of service:09/07/22 Manish Root is being seen for a follow up social work visit. Today's visit includes: patient TOPICS ADDRESSED: community resources and [facility] PLAN: Assist with financial support applications and Continue follow up as needed F/U APPOINTMENT: PRN Assigned JEANNETTE listed in Care Team tab: Yes Patient dropped off a partial completed intake form for the Work in [employer] [facility]. Jeannette completed the medical section of the form and faxed it to Maren at the [facility]. JEANNETTE called Maren to verify that the fax was received. JEANNETTE called Patient to let him know that his application was received and he needs to call Maren to talk about next steps. JEANNETTE will remain available and will follow up as appropriate. CHARLIE Waite documented in this encounterRiverview Health Institute03-02-2023 Miscellaneous Notes* Telephone Encounter - Rafale Meng RN - 09/06/2022 1:36 PM EST CYCLE 1/DAY 1 POST TREATMENT CALL Today's date: September 06, 2022 Treatment Regimen: Cisplatin C1D1 Date: 09/03/22 Called patient to follow-up on symptom management. Spoke with patient. SYMPTOM ASSESSMENT Neuro: None CV/Resp: None GI/: Appetite: no changes in appetite, appetite good, Nausea today. Resolved w/ 1 dose of compazine., Fluid intake: at least 64 oz of fluids per day, and Constipation: yes, last BM today. Notes he was constipated yesterday. Resolved w/o need for medication. Integument: None Activity: Patient reported decreased energy level Do you need to take naps? Yes; Do you wake up feeling rested? Yes Rates fatigue 4/10. Pain: No=0 (pain 0 on a scale of 0-10). Fever: No Chills: No Any new referrals needed? No Reinforced CURRENT treatment education based on current and anticipated symptoms. Discussed port/line care and patient verbalizes understanding: Not Applicable Patient instructed to contact office or after hours Hematology/Oncology fellow for: temperature ? 100.4; questions or concerns. Patient verbalized understanding of when to seek medical attention and after hours number protocol. Rafael Meng RN documented in this encounterRiverview Health Institute02-27-2023 History of Present illness Narrative* Nica Green RN - 09/03/2022 3:46 PM EST Pt reports cramping in abdomen after IV Lasix was given. He reports it happened 2 times. He states it happens when he feels he has to void, and the cramps then go away after he empties his bladder.Explained to patient it is probably just his bladder feeling full. Instructed him to call if it continues to happen, or report to ER if he feels the need. Pt verbalizes understanding. Nica Green RN * Mary Beth Chisholm RN - 09/03/2022 1:15 PM EST Patient has called and left message with his PCP to notify of weekly IV steroids. He is on metformin. Mary Beth Chisholm RN * Araceli Anne RN - 09/03/2022 11:31 AM EST No need for Mg level today per [facility]. Proceed with Mg infusion as ordered. Araceli Anne RN documented in this encounterRiverview Health Institute02-27-2023 Instructions* Patient Instructions* John England MD - 09/03/2022 11:12 AM EST Start Cisplatin weekly to start with radiation Labs weekly please. RTC 1 week See Amina / Maryam Labs same day. documented in this encounterRiverview Health Institute02-27-2023 History of Present illness Narrative* John England MD - 09/03/2022 10:45 AM EST Images from the original note were not included. NAME: Manish Root [facility] NO.: [id number] DATE OF SERVICE: September 03, 2022 (Jacquelyn) Some elements in this clinic note that are critical to medical decision making have been carefully reviewed and included from a prior clinic note dated: August 16, 2022 Referring Provider: Татьяна Feliz Additional Clinicians involved in Manish Root's care: DIAGNOSIS: Base of Tongue squamous cell ca. 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 He has a prior history of colon cancer in 1999. July 31, 2022 - Stage : T3 N1a M0 PLAN: Start Cisplatin weekly to start with radiation Labs weekly please. RTC 1 week See Amina / Maryam Labs same day. HPI: CASE HISTORY: Reverse Chronological Order 07/31/2022 examination under anesthesia/panendoscopy on . Findings included a friable exophytic mass left base of tongue extending into the vallecula. No other significant findings on laryngoscopy. 07/27/2022 CT neck on with contrast which demonstrated a 5 x 4.5 x 2.5 cm mass arising from the left base of tongue injecting into the hypopharynx and displacing the epiglottis posterior and inferiorwith narrowing of the hypopharynx. In addition a level 2 left-sided lymph node measuring 1.7 x 1.0 x 1.0 cm suspicious for metastatic disease. June 2022 - voice changed and trouble swallowing. February 2022 - started losing weight 1999 - Colon Ca Stage 3 - 2/5 LN + [place] regimen on protocol Updated Visit, September 03, 2022: Manish returns with his Jahaira. Ready to start chemo + RT - RT started. Ready for cisplatin. Initial Visit, August 16, 2022: Manish Root presents today Hematology and Oncology evaluation. He is a 76 year old male who presents with his significant other named Jahaira. 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 REVIEW OF SYSTEMS Per HPI and otherwise negative by full review of organ systems. ECOG PERFORMANCE STATUS: 0 PHYSICAL EXAMINATION: Vitals: BP 149/74 Pulse 70 Temp (Src) 97 (Temporal) Resp 16 Ht 5' 5.709 [verified 2 MA's shoes off[ (1.67m) Wt 184 lb (83.5kg) SpO2 97% BMI 29.96 kg/(m^2). Body surface area is 1.97 meters squared. Exam limited to gross visualization where appropriate due to COVID-19. Gen.: This is an age-appropriate patient in no acute distress. Head: Appears atraumatic with no visible lesions. Eyes: Pupils equally round and reactive to light, extraocular muscles are intact. Neck: Supple. 2 cm lymph node level 2 left neck no other isamar Mouth: Masked. Respiratory: Appears to be respiring comfortably. Neurologic: Nonfocal to gross visualization. Alert and oriented 3. Psychiatric: No evidence of inappropriate anxiety or depression. Skin: Visible areas of skin without rash, lesions, wounds or petechiae. ALLERGIES: ALLERGIES No Known Allergies MEDICATIONS: ondansetron (ZOFRAN) 8 mg tablet Take 1 tablet by mouth every 8 hours as needed for nausea/vomiting. prochlorperazine (COMPAZINE) 10 mg tablet Take 1 tablet by mouth every 6 hours as needed. ergocalciferol 50,000 unit capsule (VITAMIN D2, DRISDOL) TAKE 1 CAPSULE BY MOUTH WEEKLY metFORMIN (GLUCOPHAGE) 500 mg tablet TAKE 2 TABLETS BY MOUTH EVERY MORNING and TAKE 1 TABLET BY MOUTH IN THE EVENING metoprolol succinate ER (TOPROL XL) 25 mg 24 hr tablet Take 25 mg by mouth once daily. fenofibrate (LOFIBRA) 134 mg capsule Take 134 mg by mouth once daily. Aspirin 81 mg tab Take 81 mg by mouth once daily. LABORATORY VALUES: WBC (k/uL) Date Value 09/03/2022 6.41 RBC (m/uL) Date Value 09/03/2022 4.81 Hemoglobin (g/dL) Date Value 09/03/2022 14.5 Hematocrit (%) Date Value 09/03/2022 44.2 MCV (fL) Date Value 09/03/2022 91.9 MCH (pg) Date Value 09/03/2022 30.1 MCHC (g/dL) Date Value 09/03/2022 32.8 RDW-CV (%) Date Value 09/03/2022 13.3 Platelet Count (k/uL) Date Value 09/03/2022 338 MPV (fL) Date Value 09/03/2022 9.3 Glucose (mg/dL) Date Value 08/23/2022 101 (H) BUN (mg/dL) Date Value 08/23/2022 18 Creatinine (mg/dL) Date Value 08/23/2022 0.97 Sodium (mmol/L) Date Value 08/23/2022 140 Potassium (mmol/L) Date Value 08/23/2022 4.5 Chloride (mmol/L) Date Value 08/23/2022 102 CO2 (mmol/L) Date Value 08/23/2022 30 Protein, Total (g/dL) Date Value 08/23/2022 7.5 Albumin (g/dL) Date Value 08/23/2022 4.6 Calcium, Total (mg/dL) Date Value 08/23/2022 10.0 Alkaline Phosphatase (U/L) Date Value 08/23/2022 66 Bilirubin, Total (mg/dL) Date Value 08/23/2022 0.5 AST (U/L) Date Value 08/23/2022 19 ALT (U/L) Date Value 08/23/2022 16 DIAGNOSIS: (C01) 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) (primary encounter diagnosis) PAST MEDICAL HISTORY Diagnosis Date 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) 08/21/2022 Diabetes mellitus (HCC) HTN (hypertension) PAST SURGICAL HISTORY Procedure Laterality Date LAPAROSCOPIC HEMICOLECTOMY PAST SURGICAL HISTORY OF Cardiac stent placement Social History Tobacco Use Smoking status: Never Passive exposure: Never Smokeless tobacco: Never Substance Use Topics Alcohol use: Yes Comment: daily 3 beers Drug use: Not Currently No family history on file. I spent a total of 20 minutes on the date of the service which included preparing to see the patient, [id number] patient care, completing clinical documentation, performing a medically appropriate examination, counseling and educating the patient/family/caregiver, ordering medications, tests, or p rocedures, communicating with other HCPs (not separately reported), independently interpreting results (not separately reported), and care coordination (not separately reported). 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 COURSE: definitive and concurrent chemotherapy Area Treated: Oropharynx and bilateral neck Current dose: 200 Gy in 1 fx Planned dose: 6000 Gy in 30 fx SUBJECTIVE: No new problems. PHYSICAL EXAM: KPS: 90 General Appearance: Alert and oriented. No acute distress. Radiation dermatitis: No Mucositis: No Oral cavity and oropharynx: No lesions. Slight asymmetry of tongue. Left level 2 lymph node palpable nontender IMAGING/LAB RESULTS: Hemoglobin (g/dL) Date Value 08/23/2022 14.7 Hematocrit (%) Date Value 08/23/2022 43.8 WBC (k/uL) Date Value 08/23/2022 6.03 Platelet Count (k/uL) Date Value 08/23/2022 340 TOXICITY ASSESSMENT (CTCv4): Dysphagia:grade 1 - Symptomatic, able to eat regular diet Mucositis: grade 0 - No symptoms Radiation dermatitis: grade 0 - No symptoms Trismus: grade 0 - No symptoms Voice Changes:grade 1 - Mild or intermittent change from normal voice Xerostomia: grade 0 - No symptoms Treatment chart checked: Yes Patient treatment site reviewed and verified:Yes Port films reviewed and current:Yes Medications started: None ASSESSMENT: Patient starting radiation today. Plan of care and expectations again reviewed. Plan, MU calculations and qa report reviewed. Initial imaging including cone beam ct and verification reviewed and approved. First treatment given. Continue radiation as prescribed. documented in this encounterRiverview Health Institute02-22-2023 Miscellaneous Notes* Telephone Encounter - Rafael Meng RN - 08/29/2022 12:52 PM EST Pt calls w/ questions pertaining to his upcoming treatment. Questions reviewed and answered. Pt denies any further questions at this time. Rafael Meng RN documented in this encounterRiverview Health Institute02-21-2023 Miscellaneous Notes* Telephone Encounter - Rafael Meng RN - 08/28/2022 5:17 PM EST Pt notified and verbalizes understanding. Rafael Meng RN * Telephone Encounter - John England MD - 08/28/2022 5:15 PM EST Pet is localized - no mets * Telephone Encounter - Rafael Meng RN - 08/28/2022 2:52 PM EST Pt calls again requesting PET results. Please advise. Rafael Meng RN * Telephone Encounter - Rafael Meng RN - 08/28/2022 10:35 AM EST Pt calls for yesterday's PET results. Please review and advise. Thanks! Rafael Meng RN documented in this encounterRiverview Health Institute02-20-2023 Miscellaneous Notes* Telephone Encounter - Rafael Meng RN - 08/27/2022 11:23 AM EST Pt had several questions pertaining to treatment while he was here today. Questions reviewed and answered in person. No additional questions noted. Appointment reminder provided to pt as well. Rafael Meng RN documented in this encounterRiverview Health Institute02-17-2023 Miscellaneous Notes* Telephone Encounter - Madonna Barnes - 08/24/2022 9:[address] Grady patient. Patient has been scheduled for RV and treatment to begin after XRT on 09/03. Call placed to patient, no answer. Left detailed message on voicemail informing patient he will be seeing Dr. Mccallum and starting chemotherapy same day. Madonna Barnes * Telephone Encounter - Rafael Meng RN - 08/23/2022 5:23 PM EST Clerical: Pt to start radiation on 09/03/22. Pt will need to see [facility] that day as well for chemotherapy (Cisplatin). Please schedule and notify pt of appointment. Thanks! Rafael Meng RN documented in this encounterRiverview Health Institute02-16-2023 History of Present illness Narrative* Yordan Feliz MD - 08/23/2022 12:00 AM EST MANISH ROOT [id number] 08/23/2022 [facility] Radiation Oncology Department SIMULATION NOTE DATE OF SIMULATION: 08/23/2022 THERAPIST: Vinita Calderon MACHINE: NAME[employer]S Online [employer] DIAGNOSIS: Malignant neoplasm of base of [id number] AREA: H&N CONTRAST: IV Consent in Epic: Yes PT INJECTED WITH 100CC OMNIPAQUE 300 VIA THE LT AC PATIENT POSITION: Supine. FIXATION DEVICE: In order to achieve accurate and reproducible treatments, the patient is immobilized with ORFIT AIO, CUSTOM 5 PT MASK, CUSTOM MOUTHPIECE. A time-out was conducted and recorded by the therapist. CT scan was completed for target localization and planning. Field arrangement will be determined after plan has been completed. The patient is scheduled for a verification simulation on the treatment machine to ensure proper set-up and field arrangement is correct prior to the first treatment of primary and boost bertrand if applicable. Patient education will be completed per nursing. Electronically Signed Jeyson Feliz M.D. / NRS 1:21 AM documented in this encounterRiverview Health Institute02-16-2023 History of Present illness Narrative* Yordan Feliz MD - 08/23/2022 12:00 AM EST MANISH ROOT [id number] 08/23/2022 [facility] Department of Radiation Oncology Treatment Planning Note For reasons stated in the consult note, Manish Root is a candidate for radiation therapy. Based on review and interpretation of the relevant diagnostic studies together with the exam findings, Manish Root was simulated on 08/23/2022 at which time the target volume and/or requisite bertrand were del ineated, as indicated in the simulation note, to be treated according to the prescription. The treatment target and organs at risk were contoured on the simulation scan using the fused PET /. Special consideration to these and other structures was given in light of the potential for increased toxicities of combined chemoradiation. After reviewing multiple treatment plans with dosimetry, the best plan was approved to deliver the prescribed course of radiation to the target area using inverse planning to allow for the best isodose distribution, treating to the 97.7% isodose line with 6MV and 3 bertrand. Custom MLC asym jaws for IMRT were the treatment devices used to shape/modify the beams. Limiting dose to normal tissue was confirmed upon review of the calculated dose volume histogram. IMRT planning was used because it best met the dose/volume constraints for the organs at risk for this patient, better than what could be achieved using conventional or 3D planning. The specific doserequirements for the PTV, organs at risk and dose-volume histograms are contained in this treatmentplan and/or elsewhere in the medical record. A completed summary of this plan dated 08/30/22 incorporated herein by reference includes dose, beamarrangements, energy, blocking, isodose distribution, and/or ports and DVH. Electronically Signed Jeyson Feliz M.D. 0:14 AM documented in this encounterRiverview Health Institute02-14-2023 Miscellaneous Notes* Telephone Encounter - Rafael Meng RN - 08/21/2022 3:16 PM EST Pt will be in on for education (Cisplatin). Scripts for antiemetics pended. Miguel A: Please place chemotherapy orders. Thanks! Rafael Meng RN documented in this encounterRiverview Health Institute02-13-2023 History of Present illness Narrative* Dee Gil, RD - 08/20/2022 7:27 AM EST Oncology Nutrition Therapy Initial Assessment This visit was performed as a telehealth visit due to the COVID-19 pandemic as an effort to protectpatients and minimize exposure. Consent from patient received to conduct visit virtually/telehealth. It required patient-provider interaction for the medical decision making as documented below. RECOMMENDED MALNUTRITION DIAGNOSIS: NO MALNUTRITION IDENTIFIED Nutrition Diagnosis: Increased protein and energy needs related to hypermetabolic disease process as evidenced by need for weight maintenance and preservation of muscle mass. Nutrition Intervention: -encouraged weight maintenance during treatment -recommended at least 3 meals per day for now -advised against following strict diets during treatment -reviewed potential nutrition-related side effects from treatment -swallowing difficulty, taste changes -discussed supplementation -not indicated at this time -rec not using Premier Protein as it is too low in calories -encouraged adequate hydration -provider contact information provided for further questions/concerns Nutrition Monitoring & Evaluation: -PO Intake -Wt status -BM's -Biochemical Markers -Plan of care Patient's symptoms are: Weight Concerns: weight loss Pt presents for nutrition counseling for squamous cell carcinoma of the left base of tongue. Pt is currently not on active treatment. Pt's PMHx is significant for colon cancer, s/p resection and adjuvant chemotherapy (diagnosed in 1999). Pt denies any chewing/swallowing issues, denies current N/V/D/C. Pt denies food allergies/intolerances. Pt endorses good appetite stating I eat everything. Pt states since he typically eats 2 meals perday at 10a and 6p and doesn't snack as much. He was following a Keto diet until recently liberalizing the diet some since finding out about his diagnosis. Reviewed with pt importance of adequate calories/protein and preserving lean muscle mass. Discussedat length with pt concerns of following strict diet regimens such as Keto diet during treatment. Advised against this and recommended pt focus on balanced diet consisting of lean protein, whole grains, fruits, vegetables, and legumes. Pt had many questions regarding supplements and feeding tubes. Answered patient's questions and problem solved with pt on ways to meet recommendations above. Thank you for allowing me to participate in the care of this pt. Readiness to Learn: Cognitive ability: Alert and oriented Motivation to learn: Eager Family support: High - Very involved in pt care Instruction provided to: Patient Patient learns best by: Multiple Methods Factors affecting learning: None Physical limitations affecting learning: None Educational materials provided: none this visit Anthropometrics: Height: Last 1 Encounter Ht Readings: Date: Ht: 08/16/2022 168.9 cm (5' 6.5 ) Current weight: Last 1 Encounter Wt Readings: Date: Wt: 08/16/2022 84.7 kg (186 lb 12.8 oz) Estimated body mass index is 29.7 kg/m as calculated from the following: Height as of 08/16/22: 168.9 cm (5' 6.5 ). Weight as of 08/16/22: 84.7 kg (186 lb 12.8 oz). Resting Metabolic Rate: 1523 Weight Loss: 13.5kg (13.7%) from UBW per pt UBW: 216# (98.2#) - pt states Fall of 2021 Comments: pt reports he is unsure of timeframe of weight loss as he noticed he was losing weight end of last year and then also started following a Keto diet along side his significant other beginning of this year. Dosing Weight: 84.7 kg Estimated kilocalorie needs: 7611-7370 kilocalories determined by 25-30 kcal/kg Estimated protein needs: 85-102 grams determined by 1.0-1.2 g/kg Dosing weight Estimated fluid needs: ~1519-3601 milliliters based on 1 mL per kcal (unless otherwise noted) Nutrition Focused Physical Exam: Unable to perform exam due to patient unavailable, will re-attemptduring reassessment. Potential Signs of Inflammation: chronic condition Allergies: Patient has no known allergies. Medications: Current Outpatient Medications Medication Sig Dispense Refill ergocalciferol 50,000 unit capsule (VITAMIN D2, DRISDOL) TAKE 1 CAPSULE BY MOUTH WEEKLY metFORMIN (GLUCOPHAGE) 500 mg tablet TAKE 2 TABLETS BY MOUTH EVERY MORNING and TAKE 1 TABLET BY MOUTH IN THE EVENING metoprolol succinate ER (TOPROL XL) 25 mg 24 hr tablet Take 25 mg by mouth once daily. fenofibrate (LOFIBRA) 134 mg capsule Aspirin 81 mg tab Take 81 mg by mouth once daily. No current facility-administered medications for this visit. Need for Follow up: will continue to follow Referred by: Agustín BARROS Billing Type: Initial Assess/15 min 2 units Time Spent with Patient: 30 minutes Signed by: Dee Kaetzel, MS, RDN, LD documented in this encounterRiverview Health Institute02-09-2023 Instructions* Patient Instructions* John England MD - 08/16/2022 4:45 PM EST Will plan Cisplatin weekly to start with radiation Needs labs next visit at time of [facility]. RTC prior to start Consent signed Needs education documented in this encounterRiverview Health Institute02-09-2023 History of Present illness Narrative* John England MD - 08/16/2022 4:06 PM EST Images from the original note were not included. NAME: Manish Root [facility] NO.: [id number] DATE OF SERVICE: August 16, 2022 Referring Provider: Татьяна Feliz Consultation requested by Dr. Feliz for an opinion regarding Mr. Manish Root, and my final recommendations will be communicated back to the requesting physician by way of shared medical record or letter via US mail. Additional Clinicians involved in Manish Root's care: DIAGNOSIS: Base of Tongue squamous cell ca. 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 He has a prior history of colon cancer in 1999. July 31, 2022 - Stage : T3 N1a M0 PLAN: Will plan Cisplatin weekly to start with radiation Needs labs next visit at time of Sim. RTC prior to start Consent signed Needs education HPI: CASE HISTORY: Reverse Chronological Order 07/31/2022 examination under anesthesia/panendoscopy on . Findings included a friable exophytic mass left base of tongue extending into the vallecula. No other significant findings on laryngoscopy. 07/27/2022 CT neck on with contrast which demonstrated a 5 x 4.5 x 2.5 cm mass arising from the left base of tongue injecting into the hypopharynx and displacing the epiglottis posterior and inferiorwith narrowing of the hypopharynx. In addition a level 2 left-sided lymph node measuring 1.7 x 1.0 x 1.0 cm suspicious for metastatic disease. June 2022 - voice changed and trouble swallowing. February 2022 - started losing weight 1999 - Colon Ca Stage 3 - 2/5 LN + [place] regimen on protocol Initial Visit, August 16, 2022: Manish Root presents today Hematology and Oncology evaluation. He is a 76 year old male who presents with his significant other named Jahaira. 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 REVIEW OF SYSTEMS Per HPI and otherwise negative by full review of organ systems. ECOG PERFORMANCE STATUS: 0 PHYSICAL EXAMINATION: Vitals: BP 156/73 Pulse 64 Temp (Src) 97.7 (Temporal) Resp 16 Ht 5' 6.496 (1.69m) Wt 186lb 12.8 oz (84.7kg) SpO2 97% BMI 29.70 kg/(m^2). Body surface area is 1.99 meters squared. Exam limited to gross visualization where appropriate due to COVID-19. Gen.: This is an age-appropriate patient in no acute distress. Head: Appears atraumatic with no visible lesions. Eyes: Pupils equally round and reactive to light, extraocular muscles are intact. Neck: Supple. 2 cm lymph node level 2 left neck no other isamar Mouth: Masked. Respiratory: Appears to be respiring comfortably. Neurologic: Nonfocal to gross visualization. Alert and oriented 3. Psychiatric: No evidence of inappropriate anxiety or depression. Skin: Visible areas of skin without rash, lesions, wounds or petechiae. ALLERGIES: ALLERGIES No Known Allergies MEDICATIONS: ergocalciferol 50,000 unit capsule (VITAMIN D2, DRISDOL) TAKE 1 CAPSULE BY MOUTH WEEKLY metFORMIN (GLUCOPHAGE) 500 mg tablet TAKE 2 TABLETS BY MOUTH EVERY MORNING and TAKE 1 TABLET BY MOUTH IN THE EVENING metoprolol succinate ER (TOPROL XL) 25 mg 24 hr tablet Take 25 mg by mouth once daily. fenofibrate (LOFIBRA) 134 mg capsule Aspirin 81 mg tab Take 81 mg by mouth once daily. LABORATORY VALUES: No results found for: WBC, RBC, HB, HCT, MCV, MCH, MCHC, RDWCV, PLT, MPV, GLUC, BUN, CREAT, NA, K, CHLOR, CO2, TPROT, ALB, CA, ALKPHOS, TBILI, AST, ALT, CHOL, TG, BETAMM DIAGNOSIS: (C01) Cancer of base of tongue (HCC) (primary encounter diagnosis) Plan: CBC + DIFF, COMP METABOLIC PANEL PAST MEDICAL HISTORY Diagnosis Date Diabetes mellitus (HCC) HTN (hypertension) PAST SURGICAL HISTORY Procedure Laterality Date LAPAROSCOPIC HEMICOLECTOMY PAST SURGICAL HISTORY OF Cardiac stent placement Social History Tobacco Use Smoking status: Never Smokeless tobacco: Never Substance Use Topics Alcohol use: Yes Comment: daily 3 beers Drug use: Not Currently No family history on file. I spent a total of 60 minutes on the date of the service which included preparing to see the patient, [id number] patient care, completing clinical documentation, performing a medically appropriate examination, counseling and educating the patient/family/caregiver, ordering medications, tests, or p rocedures, communicating with other HCPs (not separately reported), independently interpreting results (not separately reported), and care coordination (not separately reported). John England MD, CPE Hematology and Oncology Services Provided at: [place], [place] CC: MD Serene Mcclendon MD documented in this encounterRiverview Health Institute02-08-2023 Miscellaneous Notes* Telephone Encounter - Randal Brooks - 08/15/2022 1:14 PM EST Patient called back and said that he is scheduled at [facility] in [place], [place] 08/15/22. Dental evaluation form has been faxed to: [phone]. Randal Brooks * Telephone Encounter - Randal Brooks - 08/15/2022 11:47 AM EST Patient has been scheduled for dental appointment at [facility] on 09/04. Due to the nature of request, patient has also been placed on a cancellation list if a soon appointment becomes available. Called patient, ISHA with detailed information. Randal Brooks * Telephone Encounter - Nela Samayoa RN - 08/15/2022 10:10 AM EST E- order has been signed. Nela Samayoa RN * Telephone Encounter - Nela Samayoa RN - 08/15/2022 9:56 AM EST [facility] will need referral placed to see pt and schedule dental eval for clearance. Dr Dave- can you please sign in Dr Feliz's absence? Thank you Nela Samayoa RN documented in this encounterRiverview Health Institute02-07-2023 History of Present illness Narrative* G Jeyson Feliz MD - 08/14/2022 2:34 PM EST Radiation Oncology - New Patient/Consult Note PATIENT NAME: Manish Root PATIENT : 1945 REQUESTING PROVIDER: Dr. 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 HPI: 76 year old male who presents with above diagnosis, for an opinion regarding the role of radiation therapy in the management of the patient's disease. Final recommendations will be communicated back to the requesting physician by way of the shared medical record, or letter to requesting physician via US mail. Patient has a previous history of colon cancer status postresection and adjuvant chemotherapy approximate 10 years ago. No prior radiation. He has been doing well up into the last 3 to 4 months when he developed dysphagia, voice changes that his family noticed at [facility], and he has had approximate 11 pound weight loss. Patient denies any hemoptysis. Denies any neck pain or otalgia. Denies headache or visual change. Otherwise in fairly good state of health. Denies chest pain shortness of breath. Has not been to the dentist for over 2 years but denies any dental issues recently. Patient initially underwent ultrasound thyroid area which was unremarkable. Subsequently underwent CT of the neck because of persistent complaints he was seen by Dr. Morales. He was found to have a left neck mass and lesion left base of tongue in the office. He underwent CT neck on 07/27/2022 with contrast which demonstrated a 5 x 4.5 x 2.5 cm mass arising from the left base of tongue injecting into the hypopharynx and displacing the epiglottis posterior and inferior with narrowing of the hypopharynx. In addition a level 2 left-sided lymph node measuring 1.7 x 1.0 x 1.0 cm suspicious for metastatic disease. He was brought in for examination under anesthesia/panendoscopy on 07/31/2022. Findings included a friable exophytic mass left base of tongue extending into the vallecula. No other significant findings on laryngoscopy. 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 P16 staining strongly positive. Patient comes in today to discuss potential treatment options for his newly diagnosed squamous cellcarcinoma, p16 positive, of the oropharynx/left base of tongue. FOCUSED ROS: Dysphagia: Yes . Mucositis: No Voice Changes:Yes . Fatigue: No Nausea: No Vomitting: No Pain: No Taste: No Weight loss: Yes 11 pounds over the last 2 to 3 months ALLERGIES No Known Allergies MEDICATIONS: fenofibrate (LOFIBRA) 134 mg capsule Aspirin 81 mg tab Take 81 mg by mouth once daily. ATENOLOL 25 mg tablet Take 25 mg by mouth once daily. PAST MEDICAL HISTORY Diagnosis Date Diabetes mellitus (HCC) HTN (hypertension) Prior radiation therapy, collagen vascular disease, or inflammatory bowel disease: No PAST SURGICAL HISTORY Procedure Laterality Date LAPAROSCOPIC HEMICOLECTOMY PAST SURGICAL HISTORY OF Cardiac stent placement History reviewed. No pertinent family history. Social History Tobacco Use Smoking status: Never Smokeless tobacco: Never Substance Use Topics Alcohol use: Yes Comment: daily 3 beers Drug use: Not Currently COMPLETE REVIEW OF SYSTEMS: GENERAL: feeling well without fatigue, no recent change in weight NECK: Fullness left neck not significantly tender or painful RESPIRATORY: no cough, no wheezing or shortness of breath CARDIOVASCULAR: no chest pain, no palpitations GI: normal appetite, tolerating PO well, BMs normal, and no abdominal pain SKIN: no rash NEURO: no numbness or paresthesias and no weakness of the extremities As noted in HPI PHYSICAL EXAM: VS: BP 167/90 Pulse (!) 58 Temp 36.5 C (97.7 F) Resp 16 Ht 168.9 cm (5' 6.5 ) Wt 84.8 kg (187 lb) SpO2 99% BMI 29.73 kg/m KPS: 100 General Appearance: Alert and oriented. No acute distress. HEENT: NCAT. Sclera anicteric. PERRL. EOMI. Oral cavity & oropharnyx: lips and gums normal, oral and pharyngeal mucosa moist, palate elevates normally, tongue mobile and without palpable lesions, indurated area about palpation left posterior tongue palpable only to Dentition: Good Neck: Normal ROM. Firm 1 to 2 cm lymph node level 2 left neck no other masses or adenopathy. Chest: No respiratory distress. Lungs clear to auscultation bilaterally. Heart: Regular rate and rhythm. Abdomen: Soft. Nontender. Nondistended. Musculoskeletal: No edema. Normal ROM in extremities. No bone or spine tenderness. Neuro: Speech fluent. Gait normal. No focal deficits. Skin: No rashes noted Lymphatics: No palpable lymphadenopathy. Hematologic: No signs of active bleeding. 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 Patient I feel is very appropriate candidate for combined modality therapy for his newly diagnosed p16 positive squamous of carcinoma of the lung. Would recommend concurrent radiation with campo based chemotherapy. Patient is eligible for current de-escalation trial however this just recently closed this past week. We will plan to treat the oropharynx bilateral neck area. Recommend additional imaging including PET scan. Recommend dental evaluation to assure no extractions are needed and to help with ongoing dental health including fluoride treatments. Recommend dietary consult. Recommend that medical oncology consult to discuss concurrent chemotherapy. We will plan to have him back next week for simulation and to discuss results of PET scan. Signed by: Yordan Feliz MD cc: Mannie Nelson [address] [place] [id number] Serene Morales MD [address] [place] [id number] documented in this encounterRiverview Health Institute02-07-2023 Nurse Note* Nela Samayoa RN - 08/14/2022 10:58 AM EST Radiation Therapy - Patient Education Note PATIENT NAME: Manish Root PATIENT August 14, 2022 [facility] FACILITY/LOCATION: [facility] READINESS TO LEARN Cognitive Ability: Alert and oriented Motivation to learn: Eager Family Support: High - Very involved in pt care Instruction provide to: Patient and family member Patient learns best by: Written Instruction - Hand-outs Factors effecting learning: None Physical limitations effecting learning: None LEARNING RESPONSE Diagnosis: Pt simulated today for radiation therapy to head and neck. Education Topic/Teaching Points: Radiation therapy, Side effects, and OTV: Method of instruction: Written instruction - handouts Patient /Family response: Patient and family verbalized understanding of radiation treatments, sideeffects, OTV, and transportation. Follow-up plan: Recommend - Recommend continued instruction and follow up as directed Supplemental material: Informational handouts on Head and neck packet. Binder Given Referral (recommendation): Dietitian Signed by: Nela Samayoa RN documented in this encounterRiverview Health Institute01-24-2023 NoteOPERATIVE NOTE OPERATION DATE: 07/31/2022 PRIMARY CARE PHYSICIAN: Mannie Nelson M.D. SURGEON: Serene Morales M.D. PREOPERATIVE DIAGNOSIS: Tongue base mass. POSTOPERATIVE DIAGNOSIS: Squamous cell carcinoma of the tongue base. ANESTHESIA: General endotracheal. COMPLICATIONS: None. FINDINGS: A friable exophytic mass of the left tongue huang, extending into the vallecula. INDICATIONS: This 76-year-old man presented with voice changes and a globus sensation on the left side of his throat. He was found to have a large mass of his tongue huang consistent with squamous cell carcinoma. A CT scan of the neck was obtained, which revealed a 5 cm mass of the tongue huang which crossed the midline and two zone 2 cervical lymph nodes which have morphologic features consistent with metastasis, suggesting a T3 N2c squamous cell carcinoma of the tongue base. PROCEDURE: Patient identified in the holding area and taken back to the OR where he was placed in the supine position. After induction of general endotracheal anesthesia, the table was turned, the shoulder roll placed, and the tooth guard put in position. A Dedo laryngoscope was used to examine the tongue base, and an upbiting cup forcep was used to obtain several biopsies of the patient's mass. Frozen sections were obtained to verify adequacy of the specimen, and this was consistent with a squamous cell carcinoma, possibly basaloid. There was self-limited bleeding from the biopsy sites. Then, an anterior commissure laryngoscope was used to examine the piriform sinuses, endolarynx and the remainder of the pharynx. There was no other mass found. Patient was then awakened and taken to the recovery room in good condition.The [id number] NoteOPERATIVE NOTE OPERATION DATE: 07/18/2022 PREOPERATIVE DIAGNOSIS: Personal history of colon cancer and colon polyps. POSTOPERATIVE DIAGNOSIS: Ascending colon polyps x3 and sigmoid colon polyp x1. PROCEDURE: Colonoscopy to cecum with cold snare polypectomy x4. SURGEON: Renea Partida M.D. ANESTHESIA: Monitored anesthesia care. ESTIMATED BLOOD LOSS: Less than 1 mL. INDICATIONS AND CONSENT: Patient is a 76-year-old male with history of previous sigmoid cancer resected in 1999, as well as a personal history of colon polyps. Last colonoscopy 2017 with small polyp removed in the transverse colon. Indications, risks, benefits, alternatives of proceeding with colonoscopy were explained extensively to the patient, including the risks of bleeding, colon perforation or anesthetic complications. All of his questions were answered. Informed consent was obtained. PROCEDURE: Patient brought to the operating room, placed in the left lateral decubitus position. Monitored anesthesia care was provided. Rectal exam was performed which showed no masses or blood. The scope was inserted into the anal canal. Under direct visualization was advanced. It was advanced to the cecum where cecal markings were clearly identified. There was noted to be a good prep with some liquid stool throughout the colon that was partially irrigated clear. Upon withdrawal of the scope, mucosal surfaces were carefully examined. Within the ascending colon, around a fold, there was noted to be a 5 mm sessile polyp that was removed in a piecemeal fashion with cold snare with good hemostasis. Just adjacent and distal to this polyp were two 3 mm sessile polyps that were both removed with cold snare polypectomy as well, with good hemostasis. In the descending colon, there was noted to be a 6 mm irregular sessile polyp that was removed with cold snare with good hemostasis. No other mass lesions or polyps were noted. No significant diverticulosis. The colorectal anastomosis was noted to be widely patent without narrowing or nodularity. The scope was retroflexed in the anal canal. There were some prominent rectal veins. No significant hemorrhoidal disease. The scope was then withdrawn. Patient tolerated procedure well, was sent to recovery room in good condition. Follow up colonoscopy should be in three years, but may change depending on the pathology results. CC: [facility] NoteChief Complaint consultation for colon recall HPI Staff 76 year old male presents on consultation from Dr. Nelson for colon recall. Last colonoscopy completed 2016 with tubular adenoma. History of colon cancer with colectomy in 1999. Denies abdominal or rectal pain. No rectal bleeding or change in bowel habits. Denies nausea or vomiting. No unexplained weight loss. History of Present Illness 76 yo male with h/o CAD, htn, hypercholesterolemia, personal h/o colon cancer, and history of colonpolyps; last colonoscopy 2016 with removal of small tubular adenoma in transverse colon; sigmoid colectomy in 1999 for colon cancer; on baby asa daily, no NSAIDs, no SBE prophylaxis; no fmhx of coloncancer or IBD. no tobacco use. Review of Systems PHQ Score Initial Depression Screen Score: 0 ROS - Provider Constitutional: no fever, no sweats, no weight loss. Eyes: no glasses, no blurred vision, no visual loss. ENMT: no dentures, no hoarseness, no swallowing difficulties, no hearing loss, no ear infection(s),no nose bleeds. Cardiovascular: normal blood pressure, no chest pain, regular heartbeat, no heart murmur. Respiratory: no shortness of breath, no cough, no asthma, no wheezing. Gastrointestinal: no nausea, no vomiting, no diarrhea, no constipation, no blood in stool, no change in bowel habits, no abdominal pain, no hepatitis. Genitourinary: no kidney stones, no urine infection, no dysuria. Musculoskeletal: no pain, no weakness. Skin: no changing moles, no rash, no skin lumps. Neurologic: no seizures, no epilepsy, no headache. Psychiatric: no emotional or psychiatric problem. Heme/Lymph: no bleeding problems, no anemia, no blood clots, no transfusions. Allergy/Immunologic: no swollen lymph nodes/glands, no IV drug abuse. Other: Additional ROS info: Except as noted in the above Review of Systems and in the History of Present Illness, all other systems have been reviewed and are negative or noncontributory. Physical Exam Vitals & Measurements HR: 60(Peripheral) RR: 16 BP: 120/60 HT: 68 in HT: 172.72 cm WT: 87.2 kg WT: 191.84 lb BMI: 29.23 HEENT: normal conjunctiva, sclera clear, no scleral icterus, EOM intact, PERRLA, oral mucosa moist without lesions. Neck: trachea midline, no mass, symmetric, no thyromegaly or nodules, no adenopathy Respiratory: lungs CTA, respirations non labored. Cardiovascular: regular rate and rhythm, no murmur, no pedal edema or varicosities. Gastrointestinal: soft, non distended, no tenderness, no masses, no palpable hernias, prominent diastasis recti no hepatosplenomegaly; normal bs Lymphatic: no cervical adenopathy, Musculoskeletal: normal gait, digits and nails without infection, nodes, cyanosis, clubbing. Skin: no rashes, no lesions, no ulcers, no subcutaneous nodules, induration. Psychiatric/Neuro: oriented to time, place, person, judgement normal, affect appropriate for age, insight intact, no focal deficits. Tests: review of old records completed, Discussed surgical options, risks, and possible complications with patient. Assessment/Plan 1. Personal history of colon cancer (Z85.038: Personal history of other malignant neoplasm of largeintestine) plan surveillance colonoscopy under anesthesia, informed consent obtained. 2. Personal history of colonic polyps (Z86.010: Personal history of colonic polyps) see # 1 Follow-up No qualifying data available Problem List/Past Medical History Ongoing Arteriosclerotic cardiovascular disease BMI 29.0-29.9,adult Diastasis recti Disorder of prostate DM II (diabetes mellitus, type II), controlled GERD (gastroesophageal reflux disease) Glucose intolerance History of colon cancer History of colon polyps History of DC (myocardial infarction) HTN (hypertension) Hypercholesterolemia OJEDA (nonalcoholic steatohepatitis) Personal history of colon cancer Personal history of colonic polyps Raynaud's syndrome Vitamin D deficiency Historical No qualifying data Procedure/Surgical History Colonoscopy (2016), Colonoscopy (2011), Colonoscopy (09/2006), Colonoscopy (05/2003), Cardiac catheterization (07/08/2001), Placement of stent in cardiac conduit (07/08/2001), Colonoscopy (05/2001), Colonoscopy (1999), Sigmoid colectomy (07/08/1999), Bilateral extraction of cataracts. Medications aspirin 81 mg Oral EC Tab, 81 mg= 1 tab(s), Oral, Daily ergocalciferol 50,000 intl units Cap, 32868 International_Unit= 1 cap(s), Oral, qWeek fenofibrate 134 mg oral capsule, 134 mg= 1 cap(s), Oral, Daily metformin 500 mg Tab, 500 mg= 1 tab(s), Oral, BID Metoprolol succinate 25 mg ER Tablet, 1 tab, Oral, Daily Allergies No Known Allergies No Known Medication Allergies Social History Alcohol Current, Beer, Wine, Liquor, 3-5 times per week, 04/20/2020 Substance Abuse - Denies Substance Abuse, 04/20/2020 Tobacco Never (less than 100 in lifetime) Tobacco Use:. Never Smokeless Tobacco Use:., 06/13/2022 Family History Patient (more content not included)...[facility] Comment: Electronically Signed By: JAQUAN WELCH, Renea Anderson\Date and Time Signed: 06/13/22 15:31 [id number] History of Past illness Narrative* Problem Noted Date Resolved Date 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/28/20 15 04/28/2015 documented as of this encounter (statuses as of 08/14/2022) [facility]10-22-2015 History of Past illness Narrative* Problem Noted Date Resolved Date 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/28/20 15 04/28/2015 documented as of this encounter (statuses as of 08/14/2022) [facility] History of Past illness Narrative* Problem Noted Date Resolved Date 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/28/20 15 04/28/2015 documented as of this encounter (statuses as of 08/15/2022) [facility] History of Past illness Narrative* Problem Noted Date Resolved Date 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/28/20 15 04/28/2015 documented as of this encounter (statuses as of 08/17/2022) [address]22-2015 History of Past illness Narrative* Problem Noted Date Resolved Date 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/28/20 15 04/28/2015 documented as of this encounter (statuses as of 08/20/2022) [address]22-2015 History of Past illness Narrative* Problem Noted Date Resolved Date 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/28/20 15 04/28/2015 documented as of this encounter (statuses as of 08/22/2022) [address]22-2015 History of Past illness Narrative* Problem Noted Date Resolved Date 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/28/20 15 04/28/2015 documented as of this encounter (statuses as of 08/22/2022) [address]22-2015 History of Past illness Narrative* Problem Noted Date Resolved Date 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/28/20 15 04/28/2015 documented as of this encounter (statuses as of 08/24/2022) [address]22-2015 History of Past illness Narrative* Problem Noted Date Resolved Date 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/28/20 15 04/28/2015 documented as of this encounter (statuses as of 08/24/2022) [address]22-2015 History of Past illness Narrative* Problem Noted Date Resolved Date 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/28/20 15 04/28/2015 documented as of this encounter (statuses as of 08/27/2022) [address]22-2015 History of Past illness Narrative* Problem Noted Date Resolved Date 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/28/20 15 04/28/2015 documented as of this encounter (statuses as of 08/27/2022) [address]22-2015 History of Past illness Narrative* Problem Noted Date Resolved Date 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/28/20 15 04/28/2015 documented as of this encounter (statuses as of 08/28/2022) [address]22-2015 History of Past illness Narrative* Problem Noted Date Resolved Date 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/28/20 15 04/28/2015 documented as of this encounter (statuses as of 08/29/2022) [address]22-2015 History of Past illness Narrative* Problem Noted Date Resolved Date 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/28/20 15 04/28/2015 documented as of this encounter (statuses as of 09/03/2022) [address]22-2015 History of Past illness Narrative* Problem Noted Date Resolved Date 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/28/20 15 04/28/2015 documented as of this encounter (statuses as of 09/03/2022) [address]22-2015 History of Past illness Narrative* Problem Noted Date Resolved Date 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/28/20 15 04/28/2015 documented as of this encounter (statuses as of 09/04/2022) [address]22-2015 History of Past illness Narrative* Problem Noted Date Resolved Date 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/28/20 15 04/28/2015 documented as of this encounter (statuses as of 09/06/2022) [address]22-2015 History of Past illness Narrative* Problem Noted Date Resolved Date 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/28/20 15 04/28/2015 documented as of this encounter (statuses as of 09/07/2022) [address]22-2015 History of Past illness Narrative* Problem Noted Date Resolved Date 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/28/20 15 04/28/2015 documented as of this encounter (statuses as of 09/10/2022) [address]22-2015 History of Past illness Narrative* Problem Noted Date Resolved Date 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/28/20 15 04/28/2015 documented as of this encounter (statuses as of 09/10/2022) [address]22-2015 History of Past illness Narrative* Problem Noted Date Resolved Date 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/28/20 15 04/28/2015 documented as of this encounter (statuses as of 09/11/2022) [address]22-2015 History of Past illness Narrative* Problem Noted Date Resolved Date 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/28/20 15 04/28/2015 documented as of this encounter (statuses as of 09/17/2022) [address]22-2015 History of Past illness Narrative* Problem Noted Date Resolved Date 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/28/20 15 04/28/2015 documented as of this encounter (statuses as of 09/18/2022) [address]22-2015 History of Past illness Narrative* Problem Noted Date Resolved Date 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/28/20 15 04/28/2015 documented as of this encounter (statuses as of 09/21/2022) [address]22-2015 History of Past illness Narrative* Problem Noted Date Resolved Date 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/28/20 15 04/28/2015 documented as of this encounter (statuses as of 09/24/2022) [address]22-2015 History of Past illness Narrative* Problem Noted Date Resolved Date 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/28/20 15 04/28/2015 documented as of this encounter (statuses as of 10/01/2022) [address]22-2015 History of Past illness Narrative* Problem Noted Date Resolved Date 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/28/20 15 04/28/2015 documented as of this encounter (statuses as of 10/03/2022) [address]22-2015 History of Past illness Narrative* Problem Noted Date Resolved Date 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/28/20 15 04/28/2015 documented as of this encounter (statuses as of 10/05/2022) [address]22-2015 History of Past illness Narrative* Problem Noted Date Resolved Date 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/28/20 15 04/28/2015 documented as of this encounter (statuses as of 10/08/2022) [address]22-2015 History of Past illness Narrative* Problem Noted Date Resolved Date 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/28/20 15 04/28/2015 documented as of this encounter (statuses as of 10/09/2022) [address]22-2015 History of Past illness Narrative* Problem Noted Date Resolved Date 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/28/20 15 04/28/2015 documented as of this encounter (statuses as of 10/11/2022) [address]22-2015 History of Past illness Narrative* Problem Noted Date Resolved Date 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/28/20 15 04/28/2015 documented as of this encounter (statuses as of 10/15/2022) [address]22-2015 History of Past illness Narrative* Problem Noted Date Resolved Date 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/28/20 15 04/28/2015 documented as of this encounter (statuses as of 10/19/2022) [address]22-2015 History of Past illness Narrative* Problem Noted Date Resolved Date 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/28/20 15 04/28/2015 documented as of this encounter (statuses as of 10/20/2022) [address]22-2015 History of Past illness Narrative* Problem Noted Date Resolved Date 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/28/20 15 04/28/2015 documented as of this encounter (statuses as of 10/26/2022) [address]22-2015 History of Past illness Narrative* Problem Noted Date Resolved Date 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/28/20 15 04/28/2015 documented as of this encounter (statuses as of 2022) [address]22-2015 History of Past illness Narrative* Problem Noted Date Resolved Date 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/28/20 15 04/28/2015 documented as of this encounter (statuses as of 2022) [address]22-2015 History of Past illness Narrative* Problem Noted Date Resolved Date 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/28/20 15 04/28/2015 documented as of this encounter (statuses as of 2022) [address]22-2015 History of Past illness Narrative* Problem Noted Date Resolved Date 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/28/20 15 04/28/2015 documented as of this encounter (statuses as of 11/07/2022) [address]22-2015 History of Past illness Narrative* Problem Noted Date Resolved Date 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/28/20 15 04/28/2015 documented as of this encounter (statuses as of 11/07/2022) [address]22-2015 History of Past illness Narrative* Problem Noted Date Resolved Date 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/28/20 15 04/28/2015 documented as of this encounter (statuses as of 12/04/2022) [address]22-2015 History of Past illness Narrative* Problem Noted Date Diagnosed Date Resolved Date 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 04/28/2015 documented as of this encounter (statuses as of 02/06/2023) [address]22-2015 History of Past illness Narrative* Problem Noted Date Diagnosed Date Resolved Date 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 04/28/2015 documented as of this encounter (statuses as of 02/06/2023) [facility]10-22-2015 History of Past illness Narrative* Problem Noted Date Diagnosed Date Resolved Date 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 04/28/2015 documented as of this encounter (statuses as of 02/11/2023) [facility]2015 History of Past illness Narrative* Problem Noted Date Diagnosed Date Resolved Date 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 04/28/2015 documented as of this encounter (statuses as of 03/20/2023) [facility] History of Past illness Narrative* Problem Noted Date Diagnosed Date Resolved Date 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 04/28/2015 documented as of this encounter (statuses as of 05/15/2023) [facility] History of Past illness Narrative* Problem Noted Date Diagnosed Date Resolved Date 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 04/28/2015 documented as of this encounter (statuses as of 10/17/2023) [facility] note No data available for this section General Surgery [facility] Evaluation note* Diagnosis 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, unspecified solutions 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) Malignant neoplasm of head, face, and neck [facility] Diagnosis 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, unspecified site [facility] 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) [facility] Diagnosis 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, unspecified 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, [facility] 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 [facility] Diagnosis 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 [facility] Diagnosis 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, unspecified site [facility] 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 [facility] Diagnosis 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, unspecified site [facility] Diagnosis 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 [facility] Diagnosis 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, unspecified site [facility] Diagnosis 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) [facility] Diagnosis 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 [facility] Diagnosis 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, unspecified site [facility] Diagnosis 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, unspecified site [facility]* Diagnosis 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) [facility] Diagnosis 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 [facility] Diagnosis 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 [facility]* Diagnosis Head and neck cancer (HCC)- Primary Malignant neoplasm of head, face, and neck [facility] Diagnosis 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 Cancer of base of tongue (HCC) Malignant neoplasm of base of tongue [facility]* Diagnosis Head and neck cancer (HCC)- Primary Malignant neoplasm of head, face, and neck [facility] Diagnosis 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 [facility] 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 [facility] Diagnosis 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 [facility] Diagnosis 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 [facility]* Diagnosis Head and neck cancer (HCC)- Primary Malignant neoplasm of head, face, and neck documented in this [facility]* Diagnosis 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 Stage 3 chronic kidney disease, unspecified whether stage 3a or 3b CKD (HCC) [facility] Diagnosis 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 [facility] Diagnosis Hyperlipidemia, unspecified hyperlipidemia type- Primary Type 2 diabetes mellitus without complication, unspecified whether intermediate insulin use (HCC) Unspecified essential hypertension [facility]* Diagnosis 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 Lung nodules Other nonspecific abnormal finding of lung field [facility]* Diagnosis Lung nodule seen on imaging study- Primary Solitary pulmonary nodule 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 [facility] Diagnosis 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 [facility]* Diagnosis Other specified disorders of thyroid- Primary documented [facility]* Diagnosis 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 Lung nodules Other nonspecific abnormal finding of lung field Stage 3 chronic kidney disease, unspecified whether stage 3a or 3b CKD (HCC) documented [facility]* Diagnosis Head and neck cancer (HCC)- Primary Malignant neoplasm of head, face, and neck documented in this encounter [facility] Discharge instructions No data available for this section General Surgery [employer] Progress note No data available for this section General Surgery [employer] [employer] Reason for referral (narrative)* Diagnostic Procedure Only (Routine) - Authorized Specialty Diagnoses / Procedures Referred By Contac t Referred To Contact MOLECULAR & FUNCTIONAL IMAGING Diagnoses 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) Procedures NM PET/CT SKULL-THIGH SUBSEQUENT PET IMAGING CT ATTENUATION SKULL BASE MID-THIGH Yordan Feliz MD [address] [place] [address] [place] [address] Molecular & Functional Imaging [address] [place] [address] Referral ID Status Reason Start Date Expiration Date Visits Requested Visits Authorized [id number] Authorized Auto-Generat ed Referral 01/28/2023 12/28/2023 1 1 [facility] Summary Purpose Family History No Family History Records FoundNo Family History Records FoundNo Family History Records FoundNo Family History Records Found Advance Directives No Advanced Directives Records FoundNo Advanced Directives Records FoundNo Advanced Directives Records FoundNo Advanced Directives Records Found Reason for Referral 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) Mass of right lung Procedures CT CHEST W IVCON DIAGNOSTIC COMPUTED TOMOGRAPHY THORAX W/CONTRAST John England MD [address] [place] [address] [place] [address] Ct Imaging [facility] Referral ID Status Reason Start Date Expiration Date Visits Requested Visits Authorized [id number] Authorized Auto-Generat ed Referral 04/18/2024 1 1 Specialty Diagnoses / Procedures Referred By Contac t Referred To Contact CT IMAGING Diagnoses Lung nodules Procedures CT CHEST W IVCON DIAGNOSTIC COMPUTED TOMOGRAPHY THORAX W/CONTRAST John England MD [address] [place] [address] [place] [address] Ct Imaging Referral ID Status Reason Start Date Expiration Date Visits Requested Visits Authorized [id number] Authorized Auto-Generat ed Referral 03/13/2023 03/07/2024 1 1 Specialty Diagnoses / Procedures Referred By Contac t Referred To Contact Diagnoses Tongue cancer (HCC) Procedures CT SIM PLANNING RADIATION ONCOLOGY THER RAD SIMULAJ-AIDED FIELD SETTING COMPLEX Yordan Feliz MD [address] [place] [address] [place] [address] Referral ID Status Reason Start Date Expiration Date Visits Requested Visits Authorized [id number] Pending Review PCP Requested Referral 08/23/2022 11/21/2022 1 1 Specialty Diagnoses / Procedures Referred By Contac t Referred To Contact Dentistry Diagnoses Tongue cancer (HCC) Procedures CONSULT TO DENTISTRY OFFICE/OUTPATIENT [facility] 60-74 MINUTES Travis Dave MD [address] [place] [address] [place] [address] Referral ID Status Reason Start Date Expiration Date Visits Requested Visits Authorized [id number] Pending Review PCP Requested Referral 08/15/2022 08/15/2023 1 1 Specialty Diagnoses / Procedures Referred By Contac t Referred To Contact Oncology Diagnoses Head and neck cancer (HCC) Procedures CONSULT TO ONCOLOGY OFFICE/OUTPATIENT [facility] 60-74 MINUTES Yordan Feliz MD [address] [facility] [place] [address] Referral ID Status Reason Start Date Expiration Date Visits Requested Visits Authorized [id number] Authorized PCP Requested Referral 08/14/2022 08/14/2023 1 1 Specialty Diagnoses / Procedures Referred By Contac t Referred To Contact MOLECULAR & FUNCTIONAL IMAGING Diagnoses Tongue cancer (HCC) Head and neck cancer (HCC) Procedures NM PET/CT SKULL-THIGH INITIAL PET IMAGING CT ATTENUATION SKULL BASE MID-THIGH Yordan Feliz MD [address] [facility] [place] [address] Molecular & Functional Imaging [address] [place] [address] Referral ID Status Reason Start Date Expiration Date Visits Requested Visits Authorized [id number] Pending Review Auto-Generat ed Referral 08/14/2022 09/13/2023 1 1 Medications Administered Section Inactive Administered Medications - up to 3 most recent administrations Medication Order MAR Action Action Date Dose Rate Site CISplatin 79.6 mg in NaCl 0.9% 1,129.6 mL (PLATINOL) 79.6 mg (40 mg/m2 1.99 m2 Treatment Plan BSA from Recorded weight), INTRAVENOUS, Administer over 1 Hours, ONCE, 1 dose, On Sat09/03/22 at 1130, Approx Total Volume: mL EXP:_09/04/2022@1745 Hazardous Chemotherapy Drug: Use appropriate PPE. Antineoplastic Vesicant for concentrations greater than 0.4 mg/mL - Antineoplastic Irritant for concentrations less than 0.4 mg/mL. Protect from Light. New Bag/Syringe/Bottl e 09/03/2022 1:09 PM EST 79.6 mg dexAMETHasone 10 mg/NS 50 mL (PYXIS) 10 mg ivpb (DECADRON) 10 mg, INTRAVENOUS, ONCE, 1 dose, On Sat09/03/22 at 1130, Refrigerate. New Bag/Syringe/Bottl e 09/03/2022 11:50 AM EST 10 mg fosaprepitant 150 mg in NaCl 0.9% 250 mL (EMEND) 150 mg, INTRAVENOUS, Administer over 30 Minutes, ONCE, 1 dose, On Sat09/03/22 at 1130, Approximate Total Volume = 280 mL New Bag/Syringe/Bottl e 09/03/2022 12:16 PM EST 150 mg furosemide 40 mg injection (LASIX) 40 mg, INTRAVENOUS, ONCE, 1 dose, On Sat09/03/22 at 1130 Given 09/03/2022 2:31 PM EST 40 mg magnesium sulfate 2 g in NaCl 0.9% 1,000 mL INTRAVENOUS, at 1,054 mL/hr, Administer over 1 Hours, ONCE, 1 dose, On Sat09/03/22 at 1130, TV 1054 ml New Bag/Syringe/Bottl e 09/03/2022 2:35 PM EST 1054 mL/hr NaCl 0.9% iv bolus 1,000 mL 1,000 mL, INTRAVENOUS, at 999 mL/hr, Administer over 1 Hours, ONCE, 1 dose, On Sat09/03/22 at 1130 New Bag/Syringe/Bottl e 09/03/2022 11:41 AM EST 1,000 mL 999 mL/hr ondansetron (PF) 8 mg injection (ZOFRAN) 8 mg, INTRAVENOUS, ONCE, 1 dose, On Sat09/03/22 at 1130 Given 09/03/2022 11:50 AM EST 8 mg Inactive Administered Medications - up to 3 most recent administrations Medication Order MAR Action Action Date Dose Rate Site CISplatin 79.6 mg in NaCl 0.9% 1,129.6 mL (PLATINOL) 79.6 mg (40 mg/m2 1.99 m2 Treatment Plan BSA from Recorded weight), INTRAVENOUS, Administer over 1 Hours, ONCE, 1 dose, On Sat09/10/22 at 1400, Approx Total Volume: mL EXP:0600 09/12/22 Hazardous Chemotherapy Drug: Use appropriate PPE. Antineoplastic Vesicant for concentrations greater than 0.4 mg/mL - Antineoplastic Irritant for concentrations less than 0.4 mg/mL. Protect from Light. New Bag/Syringe/Bottle 09/10/2022 2:12 PM EST 79.6 mg dexAMETHasone 10 mg/NS 50 mL (PYXIS) 10 mg ivpb (DECADRON) 10 mg, INTRAVENOUS, ONCE, 1 dose, On Sat09/10/22 at 1300, Refrigerate. New Bag/Syringe/Bottle 09/10/2022 12:56 PM EST 10 mg fosaprepitant 150 mg in NaCl 0.9% 250 mL (EMEND) 150 mg, INTRAVENOUS, Administer over 30 Minutes, ONCE, 1 dose, On Sat09/10/22 at 1300, Approximate Total Volume = 280 mL New Bag/Syringe/Bottle 09/10/2022 1:20 PM EST 150 mg furosemide 40 mg injection (LASIX) 40 mg, INTRAVENOUS, ONCE, 1 dose, On Sat09/10/22 at 1300 Given 09/10/2022 3:33 PM EST 40 mg magnesium sulfate iv piggyback in sterile water 2 g 50 mL 2 g, INTRAVENOUS, at 25-50 mL/hr, Administer over 1-2 Hours, ONCE, 1 dose, On Sat09/10/22 at 1400, Magnesium Sulfate IV bolus will be infused at a rate of 1 gram/hr. The following care areas may administer a magnesium sulfate bolus at a rate of 2 grams/hr if necessary: 1) ICUs/PACU/ED 2) Adult Hematology/Oncology 3) Labor and Delivery 4) Cardiac Step Down 5) Headache Clinic The following care areas may administer a magnesium sulfate bolus at a rate of GREATER than 2 grams/hr if necessary: 1) Adult and Pediatric Asthma Exacerbations 2) Torsade de Pointes 3) Pediatric BMT and Hematology/Oncology 4) Eclampsia or Preeclampsia New Bag/Syringe/Bottle 09/10/2022 3:37 PM EST 2 g 50 mL/hr NaCl 0.9% 1,000 mL INTRAVENOUS, at 999 mL/hr, Administer over 1 Hours, ONCE, 1 dose, On Sat09/10/22 at 1400 New Bag/Syringe/Bottle 09/10/2022 3:34 PM EST 999 mL/hr NaCl 0.9% iv bolus 1,000 mL 1,000 mL, INTRAVENOUS, at 999 mL/hr, Administer over 1 Hours, ONCE, 1 dose, On Sat09/10/22 at 1400 New Bag/Syringe/Bottle 09/10/2022 12:38 PM EST 1,000 mL 999 mL/hr ondansetron (PF) 8 mg injection (ZOFRAN) 8 mg, INTRAVENOUS, ONCE, 1 dose, On Sat09/10/22 at 1300 Given 09/10/2022 12:53 PM EST 8 mg Inactive Administered Medications - up to 3 most recent administrations Medication Order MAR Action Action Date Dose Rate Site CISplatin 79.6 mg in NaCl 0.9% 1,129.6 mL (PLATINOL) 79.6 mg (40 mg/m2 1.99 m2 Treatment Plan BSA from Recorded weight), INTRAVENOUS, Administer over 1 Hours, ONCE, 1 dose, On Sat09/17/22 at 1230, Approx Total Volume: mL EXP: 0400 09/19/22 Hazardous Chemotherapy Drug: Use appropriate PPE. Antineoplastic Vesicant for concentrations greater than 0.4 mg/mL - Antineoplastic Irritant for concentrations less than 0.4 mg/mL. Protect from Light. New Bag/Syringe/Bottle 09/17/2022 1:05 PM EDT 79.6 mg dexAMETHasone 10 mg/NS 50 mL (PYXIS) 10 mg ivpb (DECADRON) 10 mg, INTRAVENOUS, ONCE, 1 dose, On Sat09/17/22 at 1230, Refrigerate. New Bag/Syringe/Bottle 09/17/2022 12:08 PM EDT 10 mg fosaprepitant 150 mg in NaCl 0.9% 250 mL (EMEND) 150 mg, INTRAVENOUS, Administer over 30 Minutes, ONCE, 1 dose, On Sat09/17/22 at 1230, Approximate Total Volume = 280 mL New Bag/Syringe/Bottle 09/17/2022 12:29 PM EDT 150 mg furosemide 40 mg injection (LASIX) 40 mg, INTRAVENOUS, ONCE, 1 dose, On Sat09/17/22 at 1230 Given 09/17/2022 2:53 PM EDT 40 mg magnesium sulfate iv piggyback in sterile water 2 g 50 mL 2 g, INTRAVENOUS, at 25-50 mL/hr, Administer over 1-2 Hours, ONCE, 1 dose, On Sat09/17/22 at 1230, Magnesium Sulfate IV bolus will be infused at a rate of 1 gram/hr. The following care areas may administer a magnesium sulfate bolus at a rate of 2 grams/hr if necessary: 1) ICUs/PACU/ED 2) Adult Hematology/Oncology 3) Labor and Delivery 4) Cardiac Step Down 5) Headache Clinic The following care areas may administer a magnesium sulfate bolus at a rate of GREATER than 2 grams/hr if necessary: 1) Adult and Pediatric Asthma Exacerbations 2) Torsade de Pointes 3) Pediatric BMT and Hematology/Oncology 4) Eclampsia or Preeclampsia New Bag/Syringe/Bottle 09/17/2022 2:25 PM EDT 2 g 50 mL/hr NaCl 0.9% 1,000 mL INTRAVENOUS, at 999 mL/hr, Administer over 1 Hours, ONCE, 1 dose, On Sat09/17/22 at 1230 New Bag/Syringe/Bottle 09/17/2022 2:26 PM EDT 999 mL/hr NaCl 0.9% iv bolus 1,000 mL 1,000 mL, INTRAVENOUS, at 999 mL/hr, Administer over 1 Hours, ONCE, 1 dose, On Sat09/17/22 at 1230 New Bag/Syringe/Bottle 09/17/2022 11:20 AM EDT 1,000 mL 999 mL/hr ondansetron (PF) 8 mg injection (ZOFRAN) 8 mg, INTRAVENOUS, ONCE, 1 dose, On Sat09/17/22 at 1230 Given 09/17/2022 12:08 PM EDT 8 mg Inactive Administered Medications - up to 3 most recent administrations Medication Order MAR Action Action Date Dose Rate Site CISplatin 79.6 mg in NaCl 0.9% 1,129.6 mL (PLATINOL) 79.6 mg (40 mg/m2 1.99 m2 Treatment Plan BSA from Recorded weight), INTRAVENOUS, Administer over 1 Hours, ONCE, 1 dose, On Sat10/01/22 at 1230, Approx Total Volume: mL EXP: 0415 10/03/22 Hazardous Chemotherapy Drug: Use appropriate PPE. Antineoplastic Vesicant for concentrations greater than 0.4 mg/mL - Antineoplastic Irritant for concentrations less than 0.4 mg/mL. Protect from Light. New Bag/Syringe/Bottle 10/01/2022 1:16 PM EDT 79.6 mg dexAMETHasone 10 mg/NS 50 mL (PYXIS) 10 mg ivpb (DECADRON) 10 mg, INTRAVENOUS, ONCE, 1 dose, On Sat10/01/22 at 1230, Refrigerate. New Bag/Syringe/Bottle 10/01/2022 12:16 PM EDT 10 mg fosaprepitant 150 mg in NaCl 0.9% 250 mL (EMEND) 150 mg, INTRAVENOUS, Administer over 30 Minutes, ONCE, 1 dose, On Sat10/01/22 at 1230, Approximate Total Volume = 280 mL New Bag/Syringe/Bottle 10/01/2022 12:43 PM EDT 150 mg furosemide 40 mg injection (LASIX) 40 mg, INTRAVENOUS, ONCE, 1 dose, On Sat10/01/22 at 1430 Given 10/01/2022 2:37 PM EDT 40 mg magnesium sulfate iv piggyback in sterile water 2 g 50 mL 2 g, INTRAVENOUS, at 25-50 mL/hr, Administer over 1-2 Hours, ONCE, 1 dose, On Sat10/01/22 at 1230, Magnesium Sulfate IV bolus will be infused at a rate of 1 gram/hr. The following care areas may administer a magnesium sulfate bolus at a rate of 2 grams/hr if necessary: 1) ICUs/PACU/ED 2) Adult Hematology/Oncology 3) Labor and Delivery 4) Cardiac Step Down 5) Headache Clinic The following care areas may administer a magnesium sulfate bolus at a rate of GREATER than 2 grams/hr if necessary: 1) Adult and Pediatric Asthma Exacerbations 2) Torsade de Pointes 3) Pediatric BMT and Hematology/Oncology 4) Eclampsia or Preeclampsia New Bag/Syringe/Bottle 10/01/2022 2:40 PM EDT 2 g 50 mL/hr NaCl 0.9% 1,000 mL INTRAVENOUS, at 999 mL/hr, Administer over 1 Hours, ONCE, 1 dose, On Sat10/01/22 at 1230 New Bag/Syringe/Bottle 10/01/2022 2:35 PM EDT 999 mL/hr NaCl 0.9% iv bolus 1,000 mL 1,000 mL, INTRAVENOUS, at 999 mL/hr, Administer over 1 Hours, ONCE, 1 dose, On Sat10/01/22 at 1230 New Bag/Syringe/Bottle 10/01/2022 11:25 AM EDT 1,000 mL 999 mL/hr ondansetron (PF) 8 mg injection (ZOFRAN) 8 mg, INTRAVENOUS, ONCE, 1 dose, On Sat10/01/22 at 1230 Given 10/01/2022 12:15 PM EDT 8 mg Inactive Administered Medications - up to 3 most recent administrations Medication Order MAR Action Action Date Dose Rate Site CISplatin 79.6 mg in NaCl 0.9% 1,129.6 mL (PLATINOL) 79.6 mg (40 mg/m2 1.99 m2 Treatment Plan BSA from Recorded weight), INTRAVENOUS, Administer over 1 Hours, ONCE, 1 dose, On Sat10/08/22 at 1230, Approx Total Volume: EXP: 1810 10/09/22 Hazardous Chemotherapy Drug: Use appropriate PPE. Antineoplastic Vesicant for concentrations greater than 0.4 mg/mL - Antineoplastic Irritant for concentrations less than 0.4 mg/mL. Protect from Light. New Bag/Syringe/Bottle 10/08/2022 1:36 PM EDT 79.6 mg dexAMETHasone 10 mg/NS 50 mL (PYXIS) 10 mg ivpb (DECADRON) 10 mg, INTRAVENOUS, ONCE, 1 dose, On Sat10/08/22 at 1130, Refrigerate. New Bag/Syringe/Bottle 10/08/2022 1:13 PM EDT 10 mg fosaprepitant 150 mg in NaCl 0.9% 250 mL (EMEND) 150 mg, INTRAVENOUS, Administer over 30 Minutes, ONCE, 1 dose, On Sat10/08/22 at 1130, Approximate Total Volume = 280 mL New Bag/Syringe/Bottle 10/08/2022 12:38 PM EDT 150 mg furosemide 40 mg injection (LASIX) 40 mg, INTRAVENOUS, ONCE, 1 dose, On Sat10/08/22 at 1130 Given 10/08/2022 3:47 PM EDT 40 mg magnesium sulfate iv piggyback in sterile water 2 g 50 mL 2 g, INTRAVENOUS, at 25-50 mL/hr, Administer over 1-2 Hours, ONCE, 1 dose, On Sat10/08/22 at 1230, Magnesium Sulfate IV bolus will be infused at a rate of 1 gram/hr. The following care areas may administer a magnesium sulfate bolus at a rate of 2 grams/hr if necessary: 1) ICUs/PACU/ED 2) Adult Hematology/Oncology 3) Labor and Delivery 4) Cardiac Step Down 5) Headache Clinic The following care areas may administer a magnesium sulfate bolus at a rate of GREATER than 2 grams/hr if necessary: 1) Adult and Pediatric Asthma Exacerbations 2) Torsade de Pointes 3) Pediatric BMT and Hematology/Oncology 4) Eclampsia or Preeclampsia New Bag/Syringe/Bottle 10/08/2022 3:13 PM EDT 2 g 50 mL/hr NaCl 0.9% 1,000 mL INTRAVENOUS, at 999 mL/hr, Administer over 1 Hours, ONCE, 1 dose, On Sat10/08/22 at 1230 New Bag/Syringe/Bottle 10/08/2022 2:41 PM EDT 999 mL/hr NaCl 0.9% iv bolus 1,000 mL 1,000 mL, INTRAVENOUS, at 999 mL/hr, Administer over 1 Hours, ONCE, 1 dose, On Sat10/08/22 at 1130 New Bag/Syringe/Bottle 10/08/2022 11:41 AM EDT 1,000 mL 999 mL/hr ondansetron (PF) 8 mg injection (ZOFRAN) 8 mg, INTRAVENOUS, ONCE, 1 dose, On Sat10/08/22 at 1130 Given 10/08/2022 1:13 PM EDT 8 mg Inactive Administered Medications - up to 3 most recent administrations Medication Order MAR Action Action Date Dose Rate Site NaCl 0.9% 500 mL INTRAVENOUS, at 999 mL/hr, Administer over 0.5 Hours, ONCE, 1 dose, On Sat10/31/22 at 1600 New Bag/Syringe/Bottle 10/31/2022 2:44 PM EDT 999 mL/hr Additional Source Comments Patient Care team informatio n (unrecognized section and content) Inseam Trimming Machine Operator Relationship Specialty Start Date End Date Mannie Nelson MD [address] [place] [address] PCP - General Family Medicine 11/16/11 Inseam Trimming Machine Operator Relationship Specialty Start Date End Date Mannie Nelson MD [address] [place] [address] PCP - General Family Medicine 11/16/11 Inseam Trimming Machine Operator Relationship Specialty Start Date End Date Mannie Nelson MD [address] [place] [address] PCP - General Family Medicine 11/16/11 Inseam Trimming Machine Operator Relationship Specialty Start Date End Date Mannie Nelson MD [address] [place] [address] PCP - General Family Medicine 11/16/11 Inseam Trimming Machine Operator Relationship Specialty Start Date End Date Mannie Nelson MD [address] [place] [address] PCP - General Family Medicine 11/16/11 Dee Gil, KARLOS [address] [facility] [place] [address] Registered Dietitian Nutrition 08/20/22 Inseam Trimming Machine Operator Relationship Specialty Start Date End Date Mannie Nelson MD [address] [place] [address] PCP - General Family Medicine 11/16/[address] [facility] [place] [address] Registered Dietitian Nutrition 08/20/22 John England MD [address] [facility] [place] [address] Physician Hematology/Oncology 08/21/22 Maryam Hodgson, YENY.RENTAL AGENT [address] [facility] [place] [address] Nurse Practitioner Hematology/Oncology 08/21/22 Rafael Meng, [place] [address] [facility] [place] [address] Specialty Campus Recruiting Internship Hematology/Oncology 08/21/22 Yordan Feliz MD [address] [facility] [place] [address] Physician Radiation Oncology 08/21/22 Inseam Trimming Machine Operator Relationship Specialty Start Date End Date Mannie Nelson MD [address] [place] [address] PCP - General Family Medicine 11/16/[address] [facility] [place] [address] Registered Dietitian Nutrition 08/20/22 John England MD [address] [facility] [place] [address] Physician Hematology/Oncology 08/21/22 Maryam Hodgson, FRONT END SOFTWARE ENGINEER.RENTAL AGENT [address] [facility] [place] [address] Nurse Practitioner Hematology/Oncology 08/21/22 Rafael Meng, [place] [address] [facility] [place] [address] Specialty Campus Recruiting Internship Hematology/Oncology 08/21/22 Yordan Feliz MD [address] [facility] [place] [address] Physician Radiation Oncology 08/21/22 Inseam Trimming Machine Operator Relationship Specialty Start Date End Date Mannie Nelson MD [address] [place] [address] PCP - General Family Medicine 11/16/[address] [facility] [place] [address] Registered Dietitian Nutrition 08/20/22 John England MD [address] [facility] [place] [address] Physician Hematology/Oncology 08/21/22 Maryam Hodgson, FRONT END SOFTWARE ENGINEER.[address] [place] [address] Nurse Practitioner Hematology/Oncology 08/21/22 Rafael Meng, RN [address] [facility] [place] [address] Specialty Campus Recruiting Internship Hematology/Oncology 08/21/22 Yordan Feliz MD [address] [facility] [place] [address] Physician Radiation Oncology 08/21/22 Inseam Trimming Machine Operator Relationship Specialty Start Date End Date Mannie Nelson MD [address] [place] [address] PCP - General Family Medicine 11/16/11 Dee Gil, RD [address] [facility] [place] [address] Registered Dietitian Nutrition 08/20/22 John England MD [address] [facility] [place] [address] Physician Hematology/Oncology 08/21/22 Maryam Hodgson, FRONT END SOFTWARE ENGINEER.[facility] [address] [facility] [place] [address] Nurse Practitioner Hematology/Oncology 08/21/22 Rafael Meng, RN [address] [facility] [place] [address] Specialty Campus Recruiting Internship Hematology/Oncology 08/21/22 Yordan Feliz MD [address] [facility] [place] [address] Physician Radiation Oncology 08/21/22 Inseam Trimming Machine Operator Relationship Specialty Start Date End Date Mannie Nelson MD [address] [place] [address] PCP - General Family Medicine 11/16/11 Dee Gil, KARLOS [address] [facility] [place] [address] Registered Dietitian Nutrition 08/20/22 John England MD [address] [facility] [place] [address] Physician Hematology/Oncology 08/21/22 Maryam Hodgson, FRONT END SOFTWARE ENGINEER.RENTAL AGENT [address] [facility] [place] [address] Nurse Practitioner Hematology/Oncology 08/21/22 Rafael Meng, [place] [address] [facility] [place] [address] Specialty Campus Recruiting Internship Hematology/Oncology 08/21/22 Yordan Feliz MD [address] [facility] [place] [address] Physician Radiation Oncology 08/21/22 Inseam Trimming Machine Operator Relationship Specialty Start Date End Date Mannie Nelson MD [address] [place] [address] PCP - General Family Medicine 11/16/11 Dee Gil, KARLOS [address] [facility] [place] [address] Registered Dietitian Nutrition 08/20/22 John England MD [address] [facility] [place] [address] Physician Hematology/Oncology 08/21/22 Maryam Hodgson, FRONT END SOFTWARE ENGINEER.RENTAL AGENT [address] [facility] [place] [address] Nurse Practitioner Hematology/Oncology 08/21/22 Rafael Meng, [place] [address] [facility] [place] [address] Specialty Campus Recruiting Internship Hematology/Oncology 08/21/22 Yordan Fleiz MD [address] [facility] [place] [address] Physician Radiation Oncology 08/21/22 Inseam Trimming Machine Operator Relationship Specialty Start Date End Date Mannie Nelson MD [address] [place] [address] PCP - General Family Medicine 11/16/11 Inseam Trimming Machine Operator Relationship Specialty Start Date End Date Mannie Nelson MD [address] [place] [address] PCP - General Family Medicine 11/16/11 Dee Gil, KARLOS [address] [facility] [place] [address] Registered Dietitian Nutrition 08/20/22 John England MD [address] [facility] [place] [address] Physician Hematology/Oncology 08/21/22 Maryam Hodgson, YENY.RENTAL AGENT [address] [facility] [place] [address] Nurse Practitioner Hematology/Oncology 08/21/22 Rafael Meng, [place] [address] [facility] [place] [address] Specialty Campus Recruiting Internship Hematology/Oncology 08/21/22 Yordan Feliz MD [address] [facility] [place] [address] Physician Radiation Oncology 08/21/22 Inseam Trimming Machine Operator Relationship Specialty Start Date End Date Mannie Nelson MD [address] [place] [address] PCP - General Family Medicine 11/16/11 Dee Gil, KARLOS [address] [facility] [place] [address] Registered Dietitian Nutrition 08/20/22 John England MD [address] [facility] [place] [address] Physician Hematology/Oncology 08/21/22 Maryam Hodgson, FRONT END SOFTWARE ENGINEER.RENTAL AGENT [address] [facility] [place] [address] Nurse Practitioner Hematology/Oncology 08/21/22 Rafael Meng, [place] [address] [facility] [place] [address] Specialty Campus Recruiting Internship Hematology/Oncology 08/21/22 Yordan Feliz MD [address] [facility] [place] [address] Physician Radiation Oncology 08/21/22 Inseam Trimming Machine Operator Relationship Specialty Start Date End Date Mannie Nelson MD [address] [place] [facility] [place] [address] PCP - General Family Medicine 11/16/11 Dee Gil, KARLOS [address] [facility] [place] [address] Registered Dietitian Nutrition 08/20/22 John England MD [address] [facility] [place] [address] Physician Hematology/Oncology 08/21/22 Maryam Hodgson, FRONT END SOFTWARE ENGINEER.RENTAL AGENT [address] [facility] [place] [address] Nurse Practitioner Hematology/Oncology 08/21/22 Rafael Meng, [place] [address] [facility] [place] [address] Specialty Campus Recruiting Internship Hematology/Oncology 08/21/22 Yordan Feliz MD [address] [place] [address] [place] [address] Physician Radiation Oncology 08/21/22 Inseam Trimming Machine Operator Relationship Specialty Start Date End Date Mannie Nelson MD [address] [place] [address] PCP - General Family Medicine 11/16/[address] [facility] [place] [address] Registered Dietitian Nutrition 08/20/22 John England MD [address] [facility] [place] [address] Physician Hematology/Oncology 08/21/22 Maryam Hodgson, FRONT END SOFTWARE ENGINEER.[facility] [address] [facility] [place] [address] Nurse Practitioner Hematology/Oncology 08/21/22 Rafael Meng, [place] [address] [facility] [place] [address] Specialty Campus Recruiting Internship Hematology/Oncology 08/21/22 Yordan Feliz MD [address] [facility] [place] [address] Physician Radiation Oncology 08/21/22 Inseam Trimming Machine Operator Relationship Specialty Start Date End Date Mannie Nelson MD [address] [place] [place] [address] PCP - General Family Medicine 11/16/[address] [facility] [place] [address] Registered Dietitian Nutrition 08/20/22 John England MD [address] [facility] [place] [address] Physician Hematology/Oncology 08/21/22 Maryam Hodgson, FRONT END SOFTWARE ENGINEER.RENTAL AGENT [address] [facility] [place] [address] Nurse Practitioner Hematology/Oncology 08/21/22 Rafael Meng, RN [address] [facility] [place] [address] Specialty Campus Recruiting Internship Hematology/Oncology 08/21/22 Yordan Feliz MD [address] [facility] [place] [address] Physician Radiation Oncology 08/21/22 Marysol Purvis LSW Drawer In Stitch Bonding Machine 09/07/22 Inseam Trimming Machine Operator Relationship Specialty Start Date End Date Mannie Nelson MD [address] [place] [address] PCP - General Family Medicine 11/16/11 Dee Gil, KARLOS [address] [facility] [place] [address] Registered Dietitian Nutrition 08/20/22 John England MD [address] [facility] [place] [address] Physician Hematology/Oncology 08/21/22 Maryam Hodgson, FRONT END SOFTWARE ENGINEER.RENTAL AGENT [address] [facility] [place] [address] Nurse Practitioner Hematology/Oncology 08/21/22 Rafael Meng, RN [address] [facility] [place] [address] Specialty Campus Recruiting Internship Hematology/Oncology 08/21/22 Yordan Feliz MD [address] [facility] [place] [place] [address] Physician Radiation Oncology 08/21/22 Marysol Purvis LSW Drawer In Stitch Bonding Machine 09/07/22 Inseam Trimming Machine Operator Relationship Specialty Start Date End Date Mannie Nelson MD [address] [place] [address] PCP - General Family Medicine 11/16/[address] [facility] [place] [address] Registered Dietitian Nutrition 08/20/22 John England MD [address] [facility] [place] [place] [address] Physician Hematology/Oncology 08/21/22 Maryam Hodgson, FRONT END SOFTWARE ENGINEER.RENTAL AGENT [address] [facility] [place] [address] Nurse Practitioner Hematology/Oncology 08/21/22 Rafael Meng, [place] [address] [facility] [place] [address] Specialty Campus Recruiting Internship Hematology/Oncology 08/21/22 Yordan Feliz MD [address] [facility] [place] [place] [address] Physician Radiation Oncology 08/21/22 Marysol Purvis LSW Drawer In Stitch Bonding Machine 09/07/22 Inseam Trimming Machine Operator Relationship Specialty Start Date End Date Mannie Nelson MD [address] [place] [address] PCP - General Family Medicine 11/16/[address] [facility] [place] [address] Registered Dietitian Nutrition 08/20/22 John England MD [address] [facility] [address] [place], [place] [address] Physician Hematology/Oncology 08/21/22 Maryam Hodgson, FRONT END SOFTWARE ENGINEER.RENTAL AGENT [address] [facility] [place] [place] [address] Nurse Practitioner Hematology/Oncology 08/21/22 Rafael Meng, RN [address] [facility] [address] [place], [place] [address] Specialty Campus Recruiting Internship Hematology/Oncology 08/21/22 Yordan Feliz MD [address] [facility] [address] [place], [place] [address] Physician Radiation Oncology 08/21/22 Marysol Purvis LSW Drawer In Stitch Bonding Machine 09/07/22 Inseam Trimming Machine Operator Relationship Specialty Start Date End Date Mannie Nelson MD [address] [place] [address] PCP - General Family Medicine 11/16/11 Dee Gil, KARLOS [address] [facility] [place] [address] Registered Dietitian Nutrition 08/20/22 John England MD [address] [facility] [place] [address] Physician Hematology/Oncology 08/21/22 Maryam Hodgson, FRONT END SOFTWARE ENGINEER.RENTAL AGENT [address] [facility] [place] [address] Nurse Practitioner Hematology/Oncology 08/21/22 Rafael Meng, RN [address] [facility] [place] [address] Specialty Campus Recruiting Internship Hematology/Oncology 08/21/22 Yordan Feliz MD [address] [facility] [place] [address] Physician Radiation Oncology 08/21/22 Marysol Purvis LSW Drawer In Stitch Bonding Machine 09/07/22 Inseam Trimming Machine Operator Relationship Specialty Start Date End Date Mannie Nelson MD [address] [place] [address] PCP - General Family Medicine 11/16/11 Dee Gil, KARLOS [address] [facility] [place] [address] Registered Dietitian Nutrition 08/20/22 John England MD [address] [facility] [place] [address] Physician Hematology/Oncology 08/21/22 Maryam Hodgson APRN.RENTAL AGENT [address] [facility] [place] [address] Nurse Practitioner Hematology/Oncology 08/21/22 Rafael Meng, [place] [address] [facility] [place] [address] Specialty Campus Recruiting Internship Hematology/Oncology 08/21/22 Yordan Feliz MD [address] [facility] [place] [address] Physician Radiation Oncology 08/21/22 Marysol Purvis LSW Drawer In Stitch Bonding Machine 09/07/22 Inseam Trimming Machine Operator Relationship Specialty Start Date End Date Mannie Nelson MD [address] [place] [address] PCP - General Family Medicine 11/16/11 Dee Gil, KARLOS [address] [facility] [place] [address] Registered Dietitian Nutrition 08/20/22 John England MD [address] [facility] [place] [address] Physician Hematology/Oncology 08/21/22 Maryam Hodgson, FRONT END SOFTWARE ENGINEER.[facility] [address] [facility] [place] [address] Nurse Practitioner Hematology/Oncology 08/21/22 Rafael Meng, RN [address] [facility] [place] [address] Specialty Campus Recruiting Internship Hematology/Oncology 08/21/22 Yordan Feliz MD [address] [facility] [place] [address] Physician Radiation Oncology 08/21/22 Marysol Purvis LSW Drawer In Stitch Bonding Machine 09/07/22 Inseam Trimming Machine Operator Relationship Specialty Start Date End Date Mannie Nelson MD [address] [place] [address] PCP - General Family Medicine 11/16/11 Dee Gil, KARLOS [address] [facility] [place] [address] Registered Dietitian Nutrition 08/20/22 John England MD [address] [facility] [place] [address] Physician Hematology/Oncology 08/21/22 Maryam Hodgson, FRONT END SOFTWARE ENGINEER.[facility] [address] [facility] [place] [address] Nurse Practitioner Hematology/Oncology 08/21/22 aRfael Meng, [place] [address] [facility] [place] [address] Specialty Campus Recruiting Internship Hematology/Oncology 08/21/22 Yordan Feliz MD [address] [facility] [place] [address] Physician Radiation Oncology 08/21/22 Marysol Purvis LSW Drawer In Stitch Bonding Machine 09/07/22 Inseam Trimming Machine Operator Relationship Specialty Start Date End Date Mnanie Nelson MD [address] [place] [address] PCP - General Family Medicine 11/16/11 Dee Gil, KARLOS [address] [facility] [place] [address] Registered Dietitian Nutrition 08/20/22 John England MD [address] [facility] [place] [address] Physician Hematology/Oncology 08/21/22 Maryam Hodgson, FRONT END SOFTWARE ENGINEER.RENTAL AGENT [address] [facility] [place] [address] Nurse Practitioner Hematology/Oncology 08/21/22 Rafael Meng, [place] [address] [facility] [place] [address] Specialty Campus Recruiting Internship Hematology/Oncology 08/21/22 Yordan Feliz MD [address] [facility] [place] [address] Physician Radiation Oncology 08/21/22 Marysol Purvis LSW Drawer In Stitch Bonding Machine 09/07/22 Inseam Trimming Machine Operator Relationship Specialty Start Date End Date Mannie Nelson MD [address] [facility] [place] [address] PCP - General Family Medicine 11/16/[address] [facility] [place] [address] Registered Dietitian Nutrition 08/20/22 John England MD [address] [facility] [place] [address] Physician Hematology/Oncology 08/21/22 Maryam Hodgson, FRONT END SOFTWARE ENGINEER.RENTAL AGENT [address] [facility] [place] [address] Nurse Practitioner Hematology/Oncology 08/21/22 Rafael Meng, RN [address] [facility] [place] [address] Specialty Campus Recruiting Internship Hematology/Oncology 08/21/22 Yordan Feliz MD [address] [facility] [place] [address] Physician Radiation Oncology 08/21/22 Marysol Purvis LSW Drawer In Stitch Bonding Machine 09/07/22 Inseam Trimming Machine Operator Relationship Specialty Start Date End Date Mannie Nelson MD [address] [place] [address] PCP - General Family Medicine 11/16/11 Dee Gil, KARLOS [address] [facility] [place] [address] Registered Dietitian Nutrition 08/20/22 John England MD [address] [facility] [place] [address] Physician Hematology/Oncology 08/21/22 Maryam Hodgson, FRONT END SOFTWARE ENGINEER.[facility] [address] [facility] [place] [address] Nurse Practitioner Hematology/Oncology 08/21/22 Rafael Meng, [place] [address] [facility] [place] [address] Specialty Campus Recruiting Internship Hematology/Oncology 08/21/22 Yordan Feliz MD [address] [facility] [place] [address] Physician Radiation Oncology 08/21/22 Marysol Purvis LSW Drawer In Stitch Bonding Machine 09/07/22 Inseam Trimming Machine Operator Relationship Specialty Start Date End Date Mannie Nelson MD [address] [place] [address] PCP - General Family Medicine 11/16/11 Dee Gil, RD [address] [facility] [place] [address] Registered Dietitian Nutrition 08/20/22 John England MD [address] [facility] [place] [address] Physician Hematology/Oncology 08/21/22 Maryam oHdgson, FRONT END SOFTWARE ENGINEER.RENTAL AGENT [address] [facility] [place] [address] Nurse Practitioner Hematology/Oncology 08/21/22 Rafael Meng, RN [address] [facility] [place] [address] Specialty Campus Recruiting Internship Hematology/Oncology 08/21/22 Yordan Feliz MD [address] [facility] [place] [address] Physician Radiation Oncology 08/21/22 Marysol Purvis LSW Drawer In Stitch Bonding Machine 09/07/22 Inseam Trimming Machine Operator Relationship Specialty Start Date End Date Mannie Nelson MD [address] [place] [address] PCP - General Family Medicine 11/16/11 Dee Gil, KARLOS [address] [facility] [place] [address] Registered Dietitian Nutrition 08/20/22 John England MD [address] [facility] [place] [address] Physician Hematology/Oncology 08/21/22 Maryam Hodgson, FRONT END SOFTWARE ENGINEER.RENTAL AGENT [address] [facility] [place] [address] Nurse Practitioner Hematology/Oncology 08/21/22 Rafael Meng, [place] [address] [facility] [place] [address] Specialty Campus Recruiting Internship Hematology/Oncology 08/21/22 Yordan Feliz MD [address] [facility] [place] [address] Physician Radiation Oncology 08/21/22 Marysol Purvis LSW Drawer In Stitch Bonding Machine 09/07/22 Inseam Trimming Machine Operator Relationship Specialty Start Date End Date Mannie Nelson MD [address] [facility] [place] [address] PCP - General Family Medicine 11/16/[address] [facility] [place] [address] Registered Dietitian Nutrition 08/20/22 John England MD [address] [facility] [place] [address] Physician Hematology/Oncology 08/21/22 Maryam Hodgson, YENY.RENTAL AGENT [address] [facility] [place] [address] Nurse Practitioner Hematology/Oncology 08/21/22 Rafael Meng, [place] [address] [place] [address] [place] [address] Specialty Campus Recruiting Internship Hematology/Oncology 08/21/22 Yordan Feliz MD [address] [facility] [place] [address] Physician Radiation Oncology 08/21/22 Marysol Purvis LSW Drawer In Stitch Bonding Machine 09/07/22 Inseam Trimming Machine Operator Relationship Specialty Start Date End Date Mannie Nelson MD [address] [facility] [place] [address] PCP - General Family Medicine 11/16/11 Dee Gil, KARLOS [address] [facility] [place] [address] Registered Dietitian Nutrition 08/20/22 John England MD [address] [facility] [place] [address] Physician Hematology/Oncology 08/21/22 Maryam Hodgson, FRONT END SOFTWARE ENGINEER.RENTAL AGENT [address] [facility] [place] [address] Nurse Practitioner Hematology/Oncology 08/21/22 Rafael Meng, [place] [address] [facility] [place] [address] Specialty Campus Recruiting Internship Hematology/Oncology 08/21/22 Yordan Feliz MD [address] [facility] [place] [address] Physician Radiation Oncology 08/21/22 Marysol Purvis LSW Drawer In Stitch Bonding Machine 09/07/22 Inseam Trimming Machine Operator Relationship Specialty Start Date End Date Mannie Nelson MD [address] [place] [address] PCP - General Family Medicine 11/16/[address] [facility] [place] [address] Registered Dietitian Nutrition 08/20/22 John England MD [address] [facility] [place] [address] Physician Hematology/Oncology 08/21/22 Maryam Hodgson, FRONT END SOFTWARE ENGINEER.RENTAL AGENT [address] [facility] [place] [address] Nurse Practitioner Hematology/Oncology 08/21/22 Rafael Meng, [place] [address] [facility] [place] [address] Specialty Campus Recruiting Internship Hematology/Oncology 08/21/22 Yordan Feliz MD [address] [facility] [place] [address] Physician Radiation Oncology 08/21/22 Marysol Purvis LSW Drawer In Stitch Bonding Machine 09/07/22 Inseam Trimming Machine Operator Relationship Specialty Start Date End Date Mannie Nelson MD [address] [place] [address] PCP - General Family Medicine 11/16/[address] [facility] [place] [address] Registered Dietitian Nutrition 08/20/22 John England MD [address] [facility] [place] [address] Physician Hematology/Oncology 08/21/22 Maryam Hodgson, FRONT END SOFTWARE ENGINEER.RENTAL AGENT [address] [facility] [place] [address] Nurse Practitioner Hematology/Oncology 08/21/22 Rafael Meng, [place] [address] [facility] [place] [address] Specialty Campus Recruiting Internship Hematology/Oncology 08/21/22 Yordan Feliz MD [address] [facility] [place] [address] Physician Radiation Oncology 08/21/22 Marysol Purvis LSW Drawer In Stitch Bonding Machine 09/07/22 Inseam Trimming Machine Operator Relationship Specialty Start Date End Date Mannie Nelson MD [address] [place] [address] PCP - General Family Medicine 11/16/[address] [facility] [place] [address] Registered Dietitian Nutrition 08/20/22 John England MD [address] [facility] [place] [address] Physician Hematology/Oncology 08/21/22 Maryam Hodgson, FRONT END SOFTWARE ENGINEER.RENTAL AGENT [address] [facility] [place] [address] Nurse Practitioner Hematology/Oncology 08/21/22 Rafael Meng, RN [address] [facility] [place] [address] Specialty Campus Recruiting Internship Hematology/Oncology 08/21/22 Yordan Feliz MD [address] [facility] [place] [address] Physician Radiation Oncology 08/21/22 Marysol Purvis LSW Drawer In Stitch Bonding Machine 09/07/22 Inseam Trimming Machine Operator Relationship Specialty Start Date End Date Mannie Nelson MD [address] [place] [address] PCP - General Family Medicine 11/16/11 Dee Gil, RD [address] [facility] [place] [address] Registered Dietitian Nutrition 08/20/22 John England MD [address] [facility] [place] [address] Physician Hematology/Oncology 08/21/22 Maryam Hodgson, FRONT END SOFTWARE ENGINEER.RENTAL AGENT [address] [facility] [place] [address] Nurse Practitioner Hematology/Oncology 08/21/22 Rafael Meng, RN [address] [facility] [place] [address] Specialty Campus Recruiting Internship Hematology/Oncology 08/21/22 Yordan Feliz MD [address] [facility] [place] [place] [address] Physician Radiation Oncology 08/21/22 Marysol Purvis LSW Drawer In Stitch Bonding Machine 09/07/22 Inseam Trimming Machine Operator Relationship Specialty Start Date End Date Mannie Nelson MD [address] [place] [address] PCP - General Family Medicine 11/16/[address] [facility] [place] [address] Registered Dietitian Nutrition 08/20/22 John England MD [address] [facility] [place] [address] Physician Hematology/Oncology 08/21/22 Maryam Hodgson, YENY.RENTAL AGENT [address] [facility] [place] [address] Nurse Practitioner Hematology/Oncology 08/21/22 Rafael Meng, [place] [address] [facility] [place] [address] Specialty Campus Recruiting Internship Hematology/Oncology 08/21/22 Yordan Feliz MD [address] [facility] [place] [place] [address] Physician Radiation Oncology 08/21/22 Marysol Purvis LSW Drawer In Stitch Bonding Machine 09/07/22 Inseam Trimming Machine Operator Relationship Specialty Start Date End Date Mannie Nelson MD [address] [place] [address] PCP - General Family Medicine 11/16/[address] [facility] [place] [address] Registered Dietitian Nutrition 08/20/22 John England MD [address] [facility] [address] [place], [place] [address]85[address] Physician Hematology/Oncology 08/21/22 Maryam Hodgson, FRONT END SOFTWARE ENGINEER.[address] [place] [address] Nurse Practitioner Hematology/Oncology 08/21/22 Rafael Meng, RN [address] [facility] [place] [address] Specialty Campus Recruiting Internship Hematology/Oncology 08/21/22 Yordan Feliz MD [address] [facility] [place] [address] Physician Radiation Oncology 08/21/22 Marysol Purvis LSW Drawer In Stitch Bonding Machine 09/07/22 Inseam Trimming Machine Operator Relationship Specialty Start Date End Date Mannie Nelson MD [address] [place] [address] PCP - General Family Medicine 11/16/[address] [facility] [address] [place], [place] [address] Registered Dietitian Nutrition 08/20/22 John England MD [address] [facility] [place] [address] Physician Hematology/Oncology 08/21/22 Maryam Hodgson, FRONT END SOFTWARE ENGINEER.RENTAL AGENT [address] [facility] [place] [address] Nurse Practitioner Hematology/Oncology 08/21/22 Rafael Meng, RN [address] [facility] [place] [address] Specialty Campus Recruiting Internship Hematology/Oncology 08/21/22 Yordan Feliz MD [address] [facility] [address] [place], [place] [address] Physician Radiation Oncology 08/21/22 Marysol Purvis LSW Drawer In Stitch Bonding Machine 09/07/22 Inseam Trimming Machine Operator Relationship Specialty Start Date End Date Mannie Nelson MD [address] [place] [address] PCP - General Family Medicine 11/16/[address] [facility] [address] [place], [place] [address] Registered Dietitian Nutrition 08/20/22 John England MD [address] [facility] [place] [address] Physician Hematology/Oncology 08/21/22 Maryam Hodgson, YENY.RENTAL AGENT [address] [facility] [place] [address] Nurse Practitioner Hematology/Oncology 08/21/22 Rafael Meng, [place] [address] [facility] [place] [address] Specialty Campus Recruiting Internship Hematology/Oncology 08/21/22 Yordan Feliz MD [address] [facility] [address] [place], [place] 1704[address] Physician Radiation Oncology 08/21/22 Marysol Purvis LSW Drawer In Stitch Bonding Machine 09/07/22 Inseam Trimming Machine Operator Relationship Specialty Start Date End Date Shaikh Drake MD [address] [place] [address] PCP - General Primary Care 02/06/[address] [place] [address] [place] [address] Registered Dietitian Nutrition 08/20/22 John Enlgand MD [address] [place] [address] [place] [address] Physician Hematology/Oncology 08/21/22 Maryam Hodgson, FRONT END SOFTWARE ENGINEER.RENTAL AGENT [address] [facility] [place] [address] Nurse Practitioner Hematology/Oncology 08/21/22 Rafael Meng, [place] [address] [facility] [place] [address] Specialty Campus Recruiting Internship Hematology/Oncology 08/21/22 Yordan Feliz MD [address] [place] [address] [place] [address] Physician Radiation Oncology 08/21/22 Marysol Purvis LSW Drawer In Stitch Bonding Machine 09/07/22 Inseam Trimming Machine Operator Relationship Specialty Start Date End Date Shaikh Drake MD [address] [place] [address] PCP - General Primary Care 02/06/[address] [place] [address] [place] [address] Registered Dietitian Nutrition 08/20/22 John England MD [address] [place] [address] [place] [address] Physician Hematology/Oncology 08/21/22 Maryam Hodgson, FRONT END SOFTWARE ENGINEER.RENTAL AGENT [address] [place] [address] [place] [address] Nurse Practitioner Hematology/Oncology 08/21/22 Rafael Meng, [place] [address] [facility] [place] [address] Specialty Campus Recruiting Internship Hematology/Oncology 08/21/22 Yordan Feliz MD [address] [facility] [place] [address] Physician Radiation Oncology 08/21/22 Marysol Purvis LSW Drawer In Stitch Bonding Machine 09/07/22 Inseam Trimming Machine Operator Relationship Specialty Start Date End Date Shaikh Drake MD [address] [place] [address] PCP - General Primary Care 02/06/[address] [facility] [place] [address] Registered Dietitian Nutrition 08/20/22 John England MD [address] [place] [address] [place] [address] Physician Hematology/Oncology 08/21/22 Maryam Hodgson APRN.RENTAL AGENT [address] [place] [address] [place] [address] Nurse Practitioner Hematology/Oncology 08/21/22 Rafael Meng, [place] [address] [facility] [place] [address] Specialty Campus Recruiting Internship Hematology/Oncology 08/21/22 Yrodan Feliz MD [address] [facility] [place] [place] [address] Physician Radiation Oncology 08/21/22 Marysol Purvis LSW Drawer In Stitch Bonding Machine 09/07/22 Inseam Trimming Machine Operator Relationship Specialty Start Date End Date Shaikh Drake MD [address] [place] [address] PCP - General Primary Care 02/06/[address] [facility] [place] [address] Registered Dietitian Nutrition 08/20/22 John England MD [address] [facility] [place] [address] Physician Hematology/Oncology 08/21/22 Maryam Hodgson, FRONT END SOFTWARE ENGINEER.RENTAL AGENT [address] [facility] [place] [place] [address] Nurse Practitioner Hematology/Oncology 08/21/22 Rafael Meng, [place] [address] [facility] [place] [place] [address] Specialty Campus Recruiting Internship Hematology/Oncology 08/21/22 Yordan Feliz MD [address] [facility] [place] [place] [address] Physician Radiation Oncology 08/21/22 Marysol Purvis LSW Drawer In Stitch Bonding Machine 09/07/22 Inseam Trimming Machine Operator Relationship Specialty Start Date End Date Shaikh Drake MD [address] [place] [address] PCP - General Primary Care 02/06/[address] [facility] [place] [place] [address] Registered Dietitian Nutrition 08/20/22 John England MD [address] [facility] [place] [place] [address] Physician Hematology/Oncology 08/21/22 Maryam Hodgson, FRONT END SOFTWARE ENGINEER.RENTAL AGENT [address] [facility] [place] [address] Nurse Practitioner Hematology/Oncology 08/21/22 aRfael Meng, [place] [address] [facility] [place] [address] Specialty Campus Recruiting Internship Hematology/Oncology 08/21/22 Yordan Feliz MD [address] [place] [address] [place] [address] Physician Radiation Oncology 08/21/22 Marysol Purvis LSW Drawer In Stitch Bonding Machine 09/07/22 Inseam Trimming Machine Operator Relationship Specialty Start Date End Date Shaikh Drake MD [address] [facility] [place] [address] PCP - General Primary Care 02/06/[address] [facility] [place] [address] Registered Dietitian Nutrition 08/20/22 John England MD [address] [place] [address] [place] [address] Physician Hematology/Oncology 08/21/22 Maryam Hodgson APRN.RENTAL AGENT [address] [place] [address] [place] [address] Nurse Practitioner Hematology/Oncology 08/21/22 Rafael Meng, [place] [address] [facility] [place] [address] Specialty Campus Recruiting Internship Hematology/Oncology 08/21/22 Yordan Feliz MD [address] [place] [address] [place] [address] Physician Radiation Oncology 08/21/22 Marysol Purvis LSW Drawer In Stitch Bonding Machine 09/07/22 Inseam Trimming Machine Operator Relationship Specialty Start Date End Date Shaikh Drake MD [address] [place] [address] PCP - General Primary Care 02/06/[address] [place] [address] [place] [address] Registered Dietitian Nutrition 08/20/22 John England MD [address] [place] [address] [place] [address] Physician Hematology/Oncology 08/21/22 Maryam Hodgson APRN.RENTAL AGENT [address] [place] [address] [place] [address] Nurse Practitioner Hematology/Oncology 08/21/22 Rafael Meng, [place] [address] [place] [address] [place] [address] Specialty Campus Recruiting Internship Hematology/Oncology 08/21/22 Yordan Feliz MD [address] [place] [address] [place] [address] Physician Radiation Oncology 08/21/22 Marysol Purvis LSW Drawer In Stitch Bonding Machine 09/07/22 (unrecognized sect ion and content) No Status Records FoundNo Status Records FoundNo Status Records FoundNo Status Records Found INFORMATION SOURCE (unrecogn ized section and content) DATE CREATED AUTHOR 07/31/2022 [facility] DATE CREATED AUTHOR AUTHOR'S ORGANIZ ATION 08/04/2022 [facility] DATE CREATED AUTHOR AUTHOR'S ORGANIZ ATION 11/07/2023 [facility] DATE CREATED AUTHOR AUTHOR'S ORGANDIEGO ATION 11/08/2023 [facility] EPIC Source Comments (unrecognize d section and content) In the event this informatio n is protected by the Federal Confidentiality of Alcohol and Drug Abuse Patient Records regulations: The Federal rules restrict any use of the information to criminally investigate or prosecute any alcohol or drug abuse patient.[facility] InstituteIn the event this information is protected by the Federal Confidentiality of Alcohol and Drug Abuse Patient Records regulations: The Federal rules restrict any use of the information to criminally investigate or prosecute any alcohol or drug abuse patient.[facility] InstituteIn the event this information is protected by the Federal Confidentiality of Alcohol and Drug Abuse Patient Records regulations: The Federal rules restrict any use of the information to criminally investigate or prosecute any alcohol or drug abuse patient.[facility] InstituteIn the event this information is protected by the Federal Confidentiality of Alcohol and Drug Abuse Patient Records regulations: The Federal rules restrict any use of the information to criminally investigate or prosecute any alcohol or drug abuse patient.[facility] InstituteIn the event this information is protected by the Federal Confidentiality of Alcohol and Drug Abuse Patient Records regulations: The Federal rules restrict any use of the information to criminally investigate or prosecute any alcohol or drug abuse patient.[facility] InstituteIn the event this information is protected by the Federal Confidentiality of Alcohol and Drug Abuse Patient Records regulations: The Federal rules restrict any use of the information to criminally investigate or prosecute any alcohol or drug abuse patient.[facility] InstituteIn the event this information is protected by the Federal Confidentiality of Alcohol and Drug Abuse Patient Records regulations: The Federal rules restrict any use of the information to criminally investigate or prosecute any alcohol or drug abuse patient.[facility] InstituteIn the event this information is protected by the Federal Confidentiality of Alcohol and Drug Abuse Patient Records regulations: The Federal rules restrict any use of the information to criminally investigate or prosecute any alcohol or drug abuse patient.[facility] InstituteIn the event this information is protected by the Federal Confidentiality of Alcohol and Drug Abuse Patient Records regulations: The Federal rules restrict any use of the information to criminally investigate or prosecute any alcohol or drug abuse patient.[facility] InstituteIn the event this information is protected by the Federal Confidentiality of Alcohol and Drug Abuse Patient Records regulations: The Federal rules restrict any use of the information to criminally investigate or prosecute any alcohol or drug abuse patient.[facility] InstituteIn the event this information is protected by the Federal Confidentiality of Alcohol and Drug Abuse Patient Records regulations: The Federal rules restrict any use of the information to criminally investigate or prosecute any alcohol or drug abuse patient.[facility] InstituteIn the event this information is protected by the Federal Confidentiality of Alcohol and Drug Abuse Patient Records regulations: The Federal rules restrict any use of the information to criminally investigate or prosecute any alcohol or drug abuse patient.[facility] the event this information is protected by the Federal Confidentiality of Alcohol and Drug Abuse Patient Records regulations: The Federal rules restrict any use of the information to criminally investigate or prosecute any alcohol or drug abuse patient.[facility] InstituteIn the event this information is protected by the Federal Confidentiality of Alcohol and Drug Abuse Patient Records regulations: The Federal rules restrict any use of the information to criminally investigate or prosecute any alcohol or drug abuse patient.[facility] InstituteIn the event this information is protected by the Federal Confidentiality of Alcohol and Drug Abuse Patient Records regulations: The Federal rules restrict any use of the information to criminally investigate or prosecute any alcohol or drug abuse patient.[facility] InstituteIn the event this information is protected by the Federal Confidentiality of Alcohol and Drug Abuse Patient Records regulations: The Federal rules restrict any use of the information to criminally investigate or prosecute any alcohol or drug abuse patient.[facility] InstituteIn the event this information is protected by the Federal Confidentiality of Alcohol and Drug Abuse Patient Records regulations: The Federal rules restrict any use of the information to criminally investigate or prosecute any alcohol or drug abuse patient.[facility] InstituteIn the event this information is protected by the Federal Confidentiality of Alcohol and Drug Abuse Patient Records regulations: The Federal rules restrict any use of the information to criminally investigate or prosecute any alcohol or drug abuse patient.[facility] InstituteIn the event this information is protected by the Federal Confidentiality of Alcohol and Drug Abuse Patient Records regulations: The Federal rules restrict any use of the information to criminally investigate or prosecute any alcohol or drug abuse patient.[facility] InstituteIn the event this information is protected by the Federal Confidentiality of Alcohol and Drug Abuse Patient Records regulations: The Federal rules restrict any use of the information to criminally investigate or prosecute any alcohol or drug abuse patient.[facility] InstituteIn the event this information is protected by the Federal Confidentiality of Alcohol and Drug Abuse Patient Records regulations: The Federal rules restrict any use of the information to criminally investigate or prosecute any alcohol or drug abuse patient.[facility] InstituteIn the event this information is protected by the Federal Confidentiality of Alcohol and Drug Abuse Patient Records regulations: The Federal rules restrict any use of the information to criminally investigate or prosecute any alcohol or drug abuse patient.[facility] InstituteIn the event this information is protected by the Federal Confidentiality of Alcohol and Drug Abuse Patient Records regulations: The Federal rules restrict any use of the information to criminally investigate or prosecute any alcohol or drug abuse patient.[facility] InstituteIn the event this information is protected by the Federal Confidentiality of Alcohol and Drug Abuse Patient Records regulations: The Federal rules restrict any use of the information to criminally investigate or prosecute any alcohol or drug abuse patient.[facility] InstituteIn the event this information is protected by the Federal Confidentiality of Alcohol and Drug Abuse Patient Records regulations: The Federal rules restrict any use of the information to criminally investigate or prosecute any alcohol or drug abuse patient.[facility] InstituteIn the event this information is protected by the Federal Confidentiality of Alcohol and Drug Abuse Patient Records regulations: The Federal rules restrict any use of the information to criminally investigate or prosecute any alcohol or drug abuse patient.[facility] InstituteIn the event this information is protected by the Federal Confidentiality of Alcohol and Drug Abuse Patient Records regulations: The Federal rules restrict any use of the information to criminally investigate or prosecute any alcohol or drug abuse patient.[facility] InstituteIn the event this information is protected by the Federal Confidentiality of Alcohol and Drug Abuse Patient Records regulations: The Federal rules restrict any use of the information to criminally investigate or prosecute any alcohol or drug abuse patient.[facility] InstituteIn the event this information is protected by the Federal Confidentiality of Alcohol and Drug Abuse Patient Records regulations: The Federal rules restrict any use of the information to criminally investigate or prosecute any alcohol or drug abuse patient.[facility] InstituteIn the event this information is protected by the Federal Confidentiality of Alcohol and Drug Abuse Patient Records regulations: The Federal rules restrict any use of the information to criminally investigate or prosecute any alcohol or drug abuse patient.[facility] InstituteIn the event this information is protected by the Federal Confidentiality of Alcohol and Drug Abuse Patient Records regulations: The Federal rules restrict any use of the information to criminally investigate or prosecute any alcohol or drug abuse patient.[facility] InstituteIn the event this information is protected by the Federal Confidentiality of Alcohol and Drug Abuse Patient Records regulations: The Federal rules restrict any use of the information to criminally investigate or prosecute any alcohol or drug abuse patient.[facility] InstituteIn the event this information is protected by the Federal Confidentiality of Alcohol and Drug Abuse Patient Records regulations: The Federal rules restrict any use of the information to criminally investigate or prosecute any alcohol or drug abuse patient.[facility] InstituteIn the event this information is protected by the Federal Confidentiality of Alcohol and Drug Abuse Patient Records regulations: The Federal rules restrict any use of the information to criminally investigate or prosecute any alcohol or drug abuse patient.[facility] InstituteIn the event this information is protected by the Federal Confidentiality of Alcohol and Drug Abuse Patient Records regulations: The Federal rules restrict any use of the information to criminally investigate or prosecute any alcohol or drug abuse patient.[facility] InstituteIn the event this information is protected by the Federal Confidentiality of Alcohol and Drug Abuse Patient Records regulations: The Federal rules restrict any use of the information to criminally investigate or prosecute any alcohol or drug abuse patient.[facility] InstituteIn the event this information is protected by the Federal Confidentiality of Alcohol and Drug Abuse Patient Records regulations: The Federal rules restrict any use of the information to criminally investigate or prosecute any alcohol or drug abuse patient.[facility] InstituteIn the event this information is protected by the Federal Confidentiality of Alcohol and Drug Abuse Patient Records regulations: The Federal rules restrict any use of the information to criminally investigate or prosecute any alcohol or drug abuse patient.[facility] InstituteIn the event this information is protected by the Federal Confidentiality of Alcohol and Drug Abuse Patient Records regulations: The Federal rules restrict any use of the information to criminally investigate or prosecute any alcohol or drug abuse patient.[facility] InstituteIn the event this information is protected by the Federal Confidentiality of Alcohol and Drug Abuse Patient Records regulations: The Federal rules restrict any use of the information to criminally investigate or prosecute any alcohol or drug abuse patient.[facility] InstituteIn the event this information is protected by the Federal Confidentiality of Alcohol and Drug Abuse Patient Records regulations: The Federal rules restrict any use of the information to criminally investigate or prosecute any alcohol or drug abuse patient.[facility] InstituteIn the event this information is protected by the Federal Confidentiality of Alcohol and Drug Abuse Patient Records regulations: The Federal rules restrict any use of the information to criminally investigate or prosecute any alcohol or drug abuse patient.[facility] InstituteIn the event this information is protected by the Federal Confidentiality of Alcohol and Drug Abuse Patient Records regulations: The Federal rules restrict any use of the information to criminally investigate or prosecute any alcohol or drug abuse patient.[facility] InstituteIn the event this information is protected by the Federal Confidentiality of Alcohol and Drug Abuse Patient Records regulations: The Federal rules restrict any use of the information to criminally investigate or prosecute any alcohol or drug abuse patient.[facility] InstituteIn the event this information is protected by the Federal Confidentiality of Alcohol and Drug Abuse Patient Records regulations: The Federal rules restrict any use of the information to criminally investigate or prosecute any alcohol or drug abuse patient.[facility] InstituteIn the event this information is protected by the Federal Confidentiality of Alcohol and Drug Abuse Patient Records regulations: The Federal rules restrict any use of the information to criminally investigate or prosecute any alcohol or drug abuse patient.[facility] InstituteIn the event this information is protected by the Federal Confidentiality of Alcohol and Drug Abuse Patient Records regulations: The Federal rules restrict any use of the information to criminally investigate or prosecute any alcohol or drug abuse patient.[facility] InstituteIn the event this information is protected by the Federal Confidentiality of Alcohol and Drug Abuse Patient Records regulations: The Federal rules restrict any use of the information to criminally investigate or prosecute any alcohol or drug abuse patient.[facility] InstituteIn the event this information is protected by the Federal Confidentiality of Alcohol and Drug Abuse Patient Records regulations: The Federal rules restrict any use of the information to criminally investigate or prosecute any alcohol or drug abuse patient.[facility] InstituteIn the event this information is protected by the Federal Confidentiality of Alcohol and Drug Abuse Patient Records regulations: The Federal rules restrict any use of the information to criminally investigate or prosecute any alcohol or drug abuse patient.[facility] InstituteIn the event this information is protected by the Federal Confidentiality of Alcohol and Drug Abuse Patient Records regulations: The Federal rules restrict any use of the information to criminally investigate or prosecute any alcohol or drug abuse patient.[facility] InstituteIn the event this information is protected by the Federal Confidentiality of Alcohol and Drug Abuse Patient Records regulations: The Federal rules restrict any use of the information to criminally investigate or prosecute any alcohol or drug abuse patient.[facility] Reason for Visit (unrecogniz ed section and content) Reason Comments Patient Education Reason Comments Consult Specialty Diagnoses / Procedures Referred By Contcharli t Referred To Contact Radiation Oncology / RADIATION ONCOLOGY Diagnoses Dr. 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 Images requested. Procedures NEW PATIENT RAD ONC Serene Morales [address] [place] [address] Yordan Feliz MD [address] [place] [address] [place] [address] Referral ID Status Reason Start Date Expiration Date Visits Requested Visits Authorized [id number] New Request Financial Clearance Required - [employer] 08/14/2022 11/12/2022 1 0 Reason Comments Nutrition Telephone Reason Comments Care Coordination Treatment Planning Reason Comments Dental Clearance - Radiation Therapy Reason Onset Date Comments Simulation Request Form 08/23/2022 Reason Comments Care Coordination Pt Questions Reason Comments Care Coordination PET Results Reason Comments tongue cancer Reason Comments Radiotherapy On-treatment Visit Specialty Diagnoses / [facility] To Contact Diagnoses 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) John England MD [address] [place] [address] [place] [address] Sebastien Treat Jose [address] [place] [address] Referral ID Status Reason Start Date Expiration Date V isits Requested Visits Authorized [id number] Authorized 08/21/2022 11/19/2022 99 99 Reason Comments Care Coordination C1D1 Post Treatment Call Reason Comments Social Work Services Reason Comments Nutrition Assessment Reason Comments cancer of the base of tongue Reason Comments Nutrition Counseling Reason Comments skin irritation Reason Comments 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) Reason Comments tongue cancer Follow up Reason Comments Cancer of the base of tongue 1 week foll ow up Reason Comments Cancer of the base of tongue 1 week foll ow up Reason Comments Head and Neck Cancer Specialty Diagnoses / Procedures [facility] Referred To Contact Radiation Oncology / RADIATION ONCOLOGY Diagnoses 4 Week Follow Up Patient wanted to coordinate appt with Med Onc Procedures EST POST 90 DAY RAD TX Yordan Feliz MD [address] [place] [address] [place] [address] Yordan Feliz MD [address] [place] [address] [place] [address] Referral ID Status Reason Start Date Expiration Date V isits Requested Visits Authorized [id number] Authorized 11/27/2022 07/07/2023 99 99 Reason Comments Cancer of the base of tongue Reason Comments Head and Neck Cancer Reason Comments Cancer of the base of tongue 1 month fol low up Reason Comments Care Coordination Results Reason Comments 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 This clinical summary was aggregated from multiple sources. Caution should be exercised in using it in the provision of clinical care. This summary normalizes information from multiple sources, and as a consequence, information in this document may materially change the coding, format and clinical context of patient data. In addition, data may be omitted in some cases. CLINICAL DECISIONS SHOULD BE BASED ON THE PRIMARY CLINICAL RECORDS. [facility]. provides no warranty or guarantee of the accuracy or completeness of information in this document.
[2023-11-22 11:47] LABS: Estimated Average Glucose 148 mg/dL; Glycohemoglobin A1C 6.8 % (4.5-6.2)
== END 2023-11-22 10:47 | disposition home or self-care (01) ==
LOC: LAB 10:47
PROVIDERS: PCP Internal Medicine; Visit Provider Internal Medicine
DX: E11.9 Type 2 diabetes mellitus without complications (principal)
CPT/HCPCS: 36415; 83036

== ENCOUNTER 2024-01-31 12:32 | Outpatient (RCR) | payer MEDICARE, SELFPAY | END 2024-02-01 11:50 | disposition home or self-care (01) | LOC: PT 12:32 | PROVIDERS: PCP Internal Medicine; Visit Provider Internal Medicine | DX: M54.2 Cervicalgia (principal); R29.3 Abnormal posture | CPT/HCPCS: 97110; 97161 ==

== ENCOUNTER 2024-03-04 08:31 | Outpatient (OUT) | payer MEDICARE, SELFPAY ==
--- OUTSIDE RECORDS SUMMARY | 2024-03-04 08:55 | XMS_ITS | CCD ---
Author Organization [facility] Care Team Providers Care Manager Privacy Name Role Phone MANNIE NELSON Primary Care Physician [phone] Renea PARTIDA Attending Unavailable NILL, Renea Loomis [...] Admitting Unavailable NILL, DR MEIER Attending Unavailable GIRALDO, NELA Consulting Unavailable TIMMIS, DR CAST Admitting Unavailable NELSON, DR MANNIE Pulido Primary Care Unavailable TIMMIS, DR CAST Attending Unavailable TIMMIS, DR CAST Consulting Unavailable ZIEBER, DR CHAU Loomis Consulting Unavailable NILL, DR MEIER Admitting Unavailable NELSON, DR MANNIE Pulido Primary Care Unavailable NILL, DR MEIER Attending Unavailable NILL, DR MEIER Consulting Unavailable ELIASSANDY Guerra Consulting Unavailable ORA NOGUEIRA Consulting Unavailable BE BAUMAN Consulting Unavailable Leslie WELCH, Mannie De La Cruz Primary Care Provider Louise EVERETT, Dee Unavailable [phone] Jacquelyn WELCH, John Unavailable Surinder TELEPHONE OPERATOR RECEPTIONIST.LEAD CONSULTANT, Maryam Unavailable [phone] Paulino HORNER, Rafael Unavailable Yordan Feliz MD Unavailable Marysol Martinez Unavailable Unavailable Candida RD, Dee Unavailable Vidal WELCH, [facility] Primary Care Provider [phone] Candida EVERETT, Dee Unavailable Paulino HORNER, Rafael Unavailable [phone] Vidal WELCH, [facility] Primary Care Provider [phone] FAWWAD, [facility] Primary Care Unavailable [facility] Primary Care Unavailable ABHYANKAR, JOHN Referring Unavailable [facility] Primary Care Unavailable MARYAM HODGSON Referring Unavailable ABHYANKAR, JOHN Attending Unavailable [facility] Primary Care Unavailable ABHYANKAR, JOHN Referring Unavailable [facility] Primary Care Unavailable [facility] Primary Care Unavailable Yordan FELIZ Referring Unavailable [facility] Un[facility], [facility] Primary Care Unavailable MARYAM HODGSON Referring Unavailable ABHYANKAR, JOHN Attending Unavailable [facility] Primary Care Unavailable Yordan FELIZ Referring Unavailable Yordan FELIZ Attending Unavailable [facility], [facility] Primary Care Unavailable [facility], [facility] Primary Care Un[facility] Primary Care Unavailable MARYAM HODGSON Referring Unavailable ABHYANKAR, JOHN Attending Unavailable [facility] Unavailable Yordan FELIZ Referring Unavailable Yordan FELIZ Attending Unavailable [facility] Primary Care Unavailable [facility] Primary Care Unavailable MARYAM HODGSON Referring Unavailable ABHYANKAR, JOHN Attending Unavailable [facility] Primary Care Unavailable Yordan FELIZ Attending Unavailable [facility], [facility] Primary Care Unavailable MARYAM HODGSON Referring Unavailable ABHYANKAR, JOHN Attending Unavailable [facility], [facility] Primary Care Unavailable Yordan FELIZ Attending Unavailable SERENE MORALES Attending Unavailable TIMMIS, SERENE H Attending Unavailable TIMMIS, SERENE H Attending Unavailable TIMMIS, SERENE H Attending Unavailable TIMMIS, SERENE H Attending Unavailable FAWWAD, Referring Unavailable FAWWAD, Attending Unavailable TIMMIS, SERENE H Attending Unavailable FAWWAD, BOJORQUEZ Attending Unavailable FAWWAD, BOJORQUEZ Attending Unavailable TIMMIS, SERENE H Attending Unavailable TIMMIS, SERENE H Attending Unavailable TIMMIS, SERENE H Attending Unavailable Allergies Allergy Classification Reported Allergen(s) Allergy Type Date of Onset Reaction(s) Facility (1 source) No Known Medication Allergies; Translations: [No Known Medication Allergies] Propensity to adverse reactions (disorder) [facility] Medications Current Medications Medication Drug Class(es) [...] on above: Take 1 tablet by mk twice daily for 10 days. cholecalciferol 1.25 mg oral capsule (2 sources) Vitamin D Start: 024 take 1 capsule by mouth every week cholecalciferol, Vitamin D3, (VITAMIN D3) 1,250 mcg (50,000 unit) cap capsule Take 1 capsule by mouth one time a week. 0 10/01/2023 Active Comment on above: Take 1 capsule by mo [facility] one time a week. 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 Other aftercare (1 source) terminal gauger (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 of anticoagulants; Translations: [RETAIL ASSET PROTECTION SPECIALIST CURRNT USE ANTICOAGULANTS] Onset: 3 Episodic Other aftercare (1 source) custodial (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 of oral hypoglycemic drugs; Translations: [RETAIL ASSET PROTECTION SPECIALIST USE ORAL HYPOGLYCEMIC DX] Onset: 3 Episodic Other aftercare (1 source) custodial (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 of aspirin; Translations: [NURSING HOME CURRENT USE OF ASPIRIN] Onset: 3 Episodic [...] Test Name Value Interpretation Reference [facility] ([facility] ) DKMANISH ([id number]) 1945 M Date Time Provider Department 11/06/23 [...] Lymph 1.00 - 4.00 k/uL 0.48 (L) [place]% % 10.4 Abs [place] <0.87 k/uL 0.32 Eosin% % 1.6 Abs [...] BP: 163/77 (more content not included)... Normal [facility] CNOVSPon 10-23-2023 CNOVSP Visit (SP) Office ([facility]) MANISH ROOT ([id number]) 1945 M Date Time Provider Department 10/23/23 10:45 AM JOHN ENGLAND During your visit today, we recorded the following information about you: Temperature Pulse Respiration Blood pressure 97.8 degrees 54/minute 16/minute 144/70 Weight Height 87.5 kg 1.669 m John England MD 10/23/2023 10:31 PM Signed NAME: Manish Root [facility] NO.: [id number] DATE OF SERVICE: October 23, 2023 (juliana) Some elements in this clinic note that [...] Ca Stage 3 - 2/5 LN + [place] regimen on protocol Updated Visit, October 23, [...] better but (more content not included)... Normal [facility] T3 SerPl-mCncon 10-23-2023 T3 [Mass/Vol] 93 ng/dL Normal 79-165 [facility] Comment on above: Order Comment: Speci men Type: BLOOD SPECIMEN Ordering Facility: [facility] Address: [address] [place] [address] Performed By: #### 2 4323-8 #### [facility] CLIA [id number] [address] [place] [address]286 T4 Free SerPl-mCncon 024 Free T4 [Mass/Vol] 1.2 ng/dL Normal 0.9-1.7 [facility] Comment on above: Order Comment: Speci men Type: BLOOD SPECIMEN Ordering Facility: [facility] Address: [address] [place] [address] Performed By: #### 2 4323-8 #### [facility] CLIA [id number] [address] [place] [address] 10815 TSH SerPl-aCncon 10-23-2023 TSH Qn 2.750 m[IU]/L Normal 0.270-4.200 [facility] Comment on above: Order Comment: Speci men Type: BLOOD SPECIMEN Ordering Facility: [facility] Address: [address] [place] [address] Performed By: #### 2 4323-8 #### [facility] CLIA [id number] [address] [place], [place] [address] CBC W Auto Differential pane l (Bld)on 10-16-2023 Basophils (Bld) [#/Vol] 10*3/uL Normal <0.11 [facility] Comment on above: Order Comment: Speci men Type: BLOOD SPECIMEN Ordering Facility: [facility] Address: [address] [place] [address] Performed By: #### 2 4323-8 #### [facility] CLIA [id number] [address] [place] [address] 89088 Basophils/100 WBC (Bld) 0.6 % Normal [facility] Comment on above: Order Comment: Speci men Type: BLOOD SPECIMEN Ordering Facility: [facility] Address: [address] [place] [address] Performed By: #### 2 4323-8 #### [facility] CLIA [id number] [address] [place] [address] 79798 Differential cell count method Nom (Bld) Auto Normal [facility] Comment on above: Order Comment: Speci men Type: BLOOD SPECIMEN Ordering Facility: [facility] Address: [address] [place] [address] Performed By: #### 2 4323-8 #### [facility] CLIA [id number] [address] [place] [address]2624 Eosinophils (Bld) [#/Vol] 0.05 10*3/uL Normal <0.46 [facility] Comment on above: Order Comment: Speci men Type: BLOOD SPECIMEN Ordering Facility: [facility] Address: [address] [place] [address] Performed By: #### 2 4323-8 #### [facility] CLIA [id number] [address] [place] [address]27 Eosinophils/100 WBC (Bld) 1.6 % Normal [facility] Comment on above: Order Comment: Speci men Type: BLOOD SPECIMEN Ordering Facility: [facility] Address: [address] [place] [address] Performed By: #### 2 432-8 #### [facility] CLIA [id number] [address] [place] [address] 36964 Erythrocyte distribution width (RBC) [Ratio] 13.8 % Normal 11.5-15.0 [facility] Comment on above: Order Comment: Speci men Type: BLOOD SPECIMEN Ordering Facility: [facility] Address: [address] [place] [address] Performed By: #### 2 4323-8 #### [facility] CLIA [id number] [address] [place] [address] 14661 Hematocrit (Bld) [Volume fraction] 37.9 % Low 39.0-51.0 [facility] Comment on above: Order Comment: Speci men Type: BLOOD SPECIMEN Ordering Facility: [facility] Address: [address] [place] [address] Performed By: #### 2 4323-8 #### [facility] CLIA [id number] [address] [place] [address] 12272 Hemoglobin (Bld) [Mass/Vol] 12.6 g/dL Low 13.0-17.0 [facility] Comment on above: Order Comment: Speci men Type: BLOOD SPECIMEN Ordering Facility: [facility] Address: [address] [place] [address] Performed By: #### 2 4323-8 #### [facility] CLIA [id number] [address] [place] [address] 81936 Immature granulocytes (Bld) [#/Vol] 10*3/uL Normal <0.10 [facility] Comment on above: Order Comment: Speci men Type: BLOOD SPECIMEN Ordering Facility: [facility] Address: [address] [place] [address] Performed By: #### 2 4323-8 #### [facility] CLIA [id number] [address] [place] [address] 86504 Immature granulocytes/100 WBC (Bld) 0.6 % Normal [facility] Comment on above: Order Comment: Speci men Type: BLOOD SPECIMEN Ordering Facility: [facility] Address: [address] [place] [address] Performed By: #### 2 432-8 #### [facility] CLIA [id number] [address] [place] [address] 10678 Lymphocytes (Bld) [#/Vol] 0.48 10*3/uL Low 1.00-4.00 [facility] Comment on above: Order Comment: Speci men Type: BLOOD SPECIMEN Ordering Facility: [facility] Address: [address] [place] [address] Performed By: #### 2 4323-8 #### [facility] CLIA [id number] [address] [place] [address] 96425 Lymphocytes/100 WBC (Bld) 15.6 % Normal [facility] Comment on above: Order Comment: Speci men Type: BLOOD SPECIMEN Ordering Facility: [facility] Address: [address] [place] [place] [address] Performed By: #### 2 4323-8 #### [facility] CLIA [id number] [address] [place] [address] 43292 MCH (RBC) [Entitic mass] 30.1 pg Normal 26.0-34.0 [facility] Comment on above: Order Comment: Speci men Type: BLOOD SPECIMEN Ordering Facility: [facility] Address: [address] [place] [address] Performed By: #### 2 4323-8 #### [facility] CLIA [id number] [address] [place] [address] 70248 MCHC (RBC) [Mass/Vol] 33.2 g/dL Normal 30.5-36.0 [facility] Comment on above: Order Comment: Speci men Type: BLOOD SPECIMEN Ordering Facility: [facility] Address: [address] [place] [address] Performed By: #### 2 4323-8 #### [facility] CLIA [id number] [address] [place] [address] 52091 MCV (RBC) [Entitic vol] 90.7 fL Normal 80.0-100.0 [facility] Comment on above: Order Comment: Speci men Type: BLOOD SPECIMEN Ordering Facility: [facility] Address: [address] [place] [address] Performed By: #### 2 4323-8 #### [facility] CLIA [id number] [address] [place] [address] 09753 Monocytes (Bld) [#/Vol] 0.32 10*3/uL Normal <0.87 [facility] Comment on above: Order Comment: Speci men Type: BLOOD SPECIMEN Ordering Facility: [facility] Address: [address] [place] [address] Performed By: #### 2 4323-8 #### [facility] CLIA [id number] [address] [place] [address] 63908 Monocytes/100 WBC (Bld) 10.4 % Normal [facility] Comment on above: Order Comment: Speci men Type: BLOOD SPECIMEN Ordering Facility: [facility] Address: [address] [place] [address] Performed By: #### 2 4323-8 #### [facility] CLIA [id number] [address] [place] [address] 88441 Neutrophils (Bld) [#/Vol] 2.19 10*3/uL Normal 1.45-7.50 [facility] Comment on above: Order Comment: Speci men Type: BLOOD SPECIMEN Ordering Facility: [facility] Address: [address] [place] [address] Performed By: #### 2 4323-8 #### [facility] CLIA [id number] [address] [place] [address] 42906 Neutrophils/100 WBC (Bld) 71.2 % Normal [facility] Comment on above: Order Comment: Speci men Type: BLOOD SPECIMEN Ordering Facility: [facility] Address: [address] [place] [address] Performed By: #### 2 4323-8 #### [facility] CLIA [id number] [address] [place] [address] 55200 Nucleated RBC (Bld) [#/Vol] 10*3/uL Normal <0.01 [facility] Comment on above: Order Comment: Speci men Type: BLOOD SPECIMEN Ordering Facility: [facility] Address: [address] [address] Performed By: #### 2 4323-8 #### [facility] CLIA [id number] [address] [place] [address] 95226 Nucleated RBC/100 WBC (Bld) [Ratio] 0.0 /100 WBC Normal [facility] Comment on above: Order Comment: Speci men Type: BLOOD SPECIMEN Ordering Facility: [facility] Address: [address] [address] Performed By: #### 2 4323-8 #### [facility] CLIA [id number] [address] [place] [address] 47625 Platelet mean volume (Bld) [Entitic vol] 9.1 fL Normal 9.0-12.7 [facility] Comment on above: Order Comment: Speci men Type: BLOOD SPECIMEN Ordering Facility: [facility] Address: [address] [address] Performed By: #### 2 4323-8 #### [facility] CLIA [id number] [address] [place] [address] 57785 Platelets (Bld) [#/Vol] 183 10*3/uL Normal 150-400 [facility] Comment on above: Order Comment: Speci men Type: BLOOD SPECIMEN Ordering Facility: [facility] Address: [address] [place] [address] Performed By: #### 2 4323-8 #### [facility] CLIA [id number] [address] [place] [address] 66956 RBC (Bld) [#/Vol] 4.18 10*6/uL Low 4.20-6.00 [facility] Comment on above: Order Comment: Speci men Type: BLOOD SPECIMEN Ordering Facility: [facility] Address: [address] [place] [address] Performed By: #### 2 4323-8 #### [facility] CLIA [id number] [address] [place] [address] 42981 WBC (Bld) [#/Vol] 3.08 10*3/uL Low 3.70-11.00 [facility] Comment on above: Order Comment: Speci men Type: BLOOD SPECIMEN Ordering Facility: [facility] Address: [address] [place] [address] Performed By: #### 2 4323-8 #### [facility] CLIA [id number] [address] [place] [address] 99757 Kane 10-16-2023 SMITHA Telephone (HEMASA) MANISH ROOT ([id number]) 1945 M Date Time Provider Department 10/16/23 RAFAEL MENG During your visit today, we recorded the following information about you: Rafael Meng, RN 10/16/2023 1:17 PM Signed Pt had labs drawn today. Requests that the results be faxed to his PCP, Dr Drake. Results of CBC and CMP faxed to [phone]. Rafael Meng RN Allergies As of Date: 10/16/2023 (No Known Allergies) Date Reviewed: 06/19/2023 Reviewed by: Llaa Hooper MA - Fully Assessed Reason for Visit: Care Coordination [0671] Cmt: Results Prescriptions as of 10/16/2023 - [...] Encounter Status:Closed by RAFAEL MENG on 10/16/23 Normal [facility] CT CHEST W IVCONon 4 CT CHEST W IVCON * * *Final Report* * * DATE OF EXAM: Oct 16 2023 12:43PM [facility] 0539 - CT CHEST [...] any questions regarding this interpretation, please call [phone]. If you are unable to reach us at the number above, please feel free to contact [facility] at [phone]. [id number] N Normal [facility] CT NECK SOFT TISSUE W IVCONo n 10-16-2023 CT NECK SOFT TISSUE W IVCON * * *Final Report* * * DATE OF EXAM: Oct 16 2023 12:43PM [facility] 0013 - CT NECK [...] any questions regarding this interpretation, please call [phone]. If you are unable to reach us at the number above, please feel free to contact [facility] at [phone]. [id number] N Normal [facility] Comprehensive metabolic 2000 panelon 10-16-2023 Albumin [Mass/Vol] 4.4 g/dL Normal 3.9-4.9 [facility] Comment on above: Order Comment: Speci men Type: BLOOD SPECIMENOrdering Facility: [facility] Address: [address] [place], [place] [address] Performed By: #### 2 4323-8 ####[facility] [id number] [place] [address] ALP [Catalytic activity/Vol] 48 U/L Normal 38-113 [facility] Comment on above: Order Comment: Speci men Type: BLOOD SPECIMENOrdering Facility: [facility] Address: [address] [place] [address] Performed By: #### 2 4323-8 ####[facility] [id number] [place] [address] ALT [Catalytic activity/Vol] 13 U/L Normal 10-54 [facility] Comment on above: Order Comment: Speci men Type: BLOOD SPECIMENOrdering Facility: [facility] Address: [address] [place] [address] Performed By: #### 2 4323-8 ####[facility] [id number] [place] [address] Anion gap [Moles/Vol] 11 mmol/L Normal 9-18 [facility] Comment on above: Order Comment: Speci men Type: BLOOD SPECIMENOrdering Facility: [facility] Address: [address] [place] [address] Performed By: #### 2 4323-8 ####[facility] [id number] [place] [address] AST [Catalytic activity/Vol] 15 U/L Normal 14-40 [facility] Comment on above: Order Comment: Speci men Type: BLOOD SPECIMENOrdering Facility: [facility] Address: [address] [place] [address] Performed By: #### 2 4323-8 ####[facility] [id number] [place] [address] Bilirubin [Mass/Vol] 0.5 mg/dL Normal 0.2-1.3 [facility] Comment on above: Order Comment: Speci men Type: BLOOD SPECIMENOrdering Facility: [facility] Address: [address] [place] [address] Performed By: #### 2 4323-8 ####[facility] [id number] [place] [address] Calcium [Mass/Vol] 9.7 mg/dL Normal 8.5-10.2 [facility] Comment on above: Order Comment: Speci men Type: BLOOD SPECIMENOrdering Facility: [facility] Address: [address] [place] [address] Performed By: #### 2 4323-8 ####[facility] [id number] [place] [address] Chloride [Moles/Vol] 105 mmol/L Normal 97-105 [facility] Comment on above: Order Comment: Speci men Type: BLOOD SPECIMENOrdering Facility: [facility] Address: [address] [place], [place] [address] Performed By: #### 2 4323-8 ####[facility] [id number] [place] [address] CO2 [Moles/Vol] 26 mmol/L Normal 22-30 [facility] Comment on above: Order Comment: Speci men Type: BLOOD SPECIMENOrdering Facility: [facility] Address: [address] [place] [address] Performed By: #### 2 4323-8 ####[facility] [id number] [place] [address] Creatinine [Mass/Vol] 1.34 mg/dL High 0.73-1.22 [facility] Comment on above: Order Comment: Speci men Type: BLOOD SPECIMENOrdering Facility: [facility] Address: [address] [place] [address] Performed By: #### 2 4323-8 ####[facility] [id number] [place] [address] Creatinine and Glomerular filtration rate.predicted panel (S/P/Bld) 54 mL/min/1.73m??? Low >=60 [facility] Comment on above: Order Comment: Speci men Type: BLOOD SPECIMENOrdering Facility: [facility] Address: [address] [place] [address] Result Comment: Felicity mated Glomerular Filtration Rate [...] actual GFR. Performed By: #### 2 4323-8 ####[facility] [id number] [place] [address] Glucose [Mass/Vol] 135 mg/dL High 74-99 [facility] Comment on above: Order Comment: Speci men Type: BLOOD SPECIMENOrdering Facility: [facility] Address: [address] [place] [address] Result Comment: The [place] Diabetes Association (ADA) provides guidance for cutoff [...] Standards of Medical Care in Diabetes 2016, [place] [employer]. Diabetes Care. 2016.39(Suppl 1). Performed By: #### 2 4323-8 ####[facility] [id number] [place] [address] Potassium [Moles/Vol] 4.5 mmol/L Normal 3.7-5.1 [facility] Comment on above: Order Comment: Reggiei men Type: BLOOD SPECIMENOrdering Facility: [facility] Address: [address] [place] [address] Performed By: #### 2 4323-8 ####[facility] [id number] [place] [address] Protein [Mass/Vol] 6.7 g/dL Normal 6.3-8.0 [facility] Comment on above: Order Comment: Speci men Type: BLOOD SPECIMENOrdering Facility: [facility] Address: [address] [place] [address] Performed By: #### 2 4323-8 ####[facility] [id number] [place] [address] Sodium [Moles/Vol] 142 mmol/L Normal 136-144 [facility] Comment on above: Order Comment: Speci men Type: BLOOD SPECIMENOrdering Facility: [facility] Address: [address] [place] [address] Performed By: #### 2 4323-8 ####[facility]IA [id number] [place] [address] Urea nitrogen [Mass/Vol] 22 mg/dL Normal 9-24 [facility] Comment on above: Order Comment: Speci men Type: BLOOD SPECIMENOrdering Facility: [facility] Address: [address] [place] [address] Performed By: #### 2 4323-8 ####[facility] LABCLIA [id number] [place] [address] CNOVSPon 06-19-2023 CNOVSP Visit (SP) Office ([place]) MANISH ROOT ([id number]) 1945 M Date Time Provider Department 06/19/23 9:45 AM JOHN ENGLAND During your visit today, we recorded the following information about you: Temperature Pulse Respiration Blood pressure 97.2 degrees 54/minute 16/minute 140/69 Weight 82.9 kg John England MD 06/20/2023 8:01 AM Signed NAME: Manish Root [facility] NO.: [id number] DATE OF SERVICE: June 19, 2023 (Jacquelyn) [...] Ca Stage 3 - 2/5 LN + [place] regimen on protocol Updated Visit, June 19, [...] Manish re (more content not included)... Normal [facility] CT CHEST W IVCONon 3 CT CHEST W IVCON * * *Final Report* * * DATE OF EXAM: Jun 12 2023 8:15AM [facility] 0539 - CT CHEST [...] noted are nonspecific noncalcified pulmonary nodules, with circulation sales representative larger examples detailed as follows on [...] No abnormality in the imaged upper abdomen. Humane Agent (topogram) images: No additional findings. IMPRESSION: 1. [...] any questions regarding this interpretation, please call [phone]. If you are unable to reach us at the number above, please feel free to contact [facility] eRadiology at [phone]. [id number] N Normal [facility] CBC W Auto Differential pane l (Bld)on 06-11-2023 Basophils (Bld) [#/Vol] 0.03 10*3/uL Normal <0.11 [facility] Comment on above: Order Comment: Speci men Type: BLOOD SPECIMEN Ordering Facility: [facility] Address: [address] [address] Performed By: #### 2 4323-8 #### [facility] CLIA [id number] [address] [place] [address] Basophils/100 WBC (Bld) 0.9 % Normal [facility] Comment on above: Order Comment: Speci men Type: BLOOD SPECIMEN Ordering Facility: [facility] Address: [address] [address] Performed By: #### 2 4323-8 #### [facility] CLIA [id number] [address] [place] [address] Differential cell count method Nom (Bld) Auto Normal [facility] Comment on above: Order Comment: Speci men Type: BLOOD SPECIMEN Ordering Facility: [facility] Address: [address] [address] Performed By: #### 2 4323-8 #### [facility] CLIA [id number] [address] [place] [address] Eosinophils (Bld) [#/Vol] 0.05 10*3/uL Normal <0.46 [facility] Comment on above: Order Comment: Speci men Type: BLOOD SPECIMEN Ordering Facility: [facility] Address: [address] [place] [address] Performed By: #### 2 4323-8 #### [facility] CLIA [id number] [address] [place] [address] 22357 Eosinophils/100 WBC (Bld) 1.4 % Normal [facility] Comment on above: Order Comment: Speci men Type: BLOOD SPECIMEN Ordering Facility: [facility] Address: [address] [place] [address] Performed By: #### 2 4323-8 #### [facility] CLIA [id number] [address] [place] [address] Erythrocyte distribution width (RBC) [Ratio] 13.5 % Normal 11.5-15.0 [facility] Comment on above: Order Comment: Speci men Type: BLOOD SPECIMEN Ordering Facility: [facility] Address: [address] [address] Performed By: #### 2 4323-8 #### [facility] CLIA [id number] [address] [place] [address] 13818 Hematocrit (Bld) [Volume fraction] 39.8 % Normal 39.0-51.0 [facility] Comment on above: Order Comment: Speci men Type: BLOOD SPECIMEN Ordering Facility: [facility] Address: [address] [place] [address] Performed By: #### 2 4323-8 #### [facility] CLIA [id number] [address] [place] [address] Hemoglobin (Bld) [Mass/Vol] 13.3 g/dL Normal 13.0-17.0 [facility] Comment on above: Order Comment: Speci men Type: BLOOD SPECIMEN Ordering Facility: [facility] Address: [address] [place] [address] Performed By: #### 2 4323-8 #### [facility] CLIA [id number] [address] [place] [address] Immature granulocytes (Bld) [#/Vol] 0.03 10*3/uL Normal <0.10 [facility] Comment on above: Order Comment: Speci men Type: BLOOD SPECIMEN Ordering Facility: [facility] Address: [address] [place] [address] Performed By: #### 2 4323-8 #### [facility] CLIA [id number] [address] [place] [address] 88403 Immature granulocytes/100 WBC (Bld) 0.9 % Normal [facility] Comment on above: Order Comment: Speci men Type: BLOOD SPECIMEN Ordering Facility: [facility] Address: [address] [place] [address] Performed By: #### 2 4323-8 #### [facility] CLIA [id number] [address] [place] [address] 25488 Lymphocytes (Bld) [#/Vol] 0.53 10*3/uL Low 1.00-4.00 [facility] Comment on above: Order Comment: Speci men Type: BLOOD SPECIMEN Ordering Facility: [facility] Address: [address] [place] [address] Performed By: #### 2 4323-8 #### [facility] CLIA [id number] [address] [place] [address] 59972 Lymphocytes/100 WBC (Bld) 15.2 % Normal [facility] Comment on above: Order Comment: Speci men Type: BLOOD SPECIMEN Ordering Facility: [facility] Address: [address] [address] Performed By: #### 2 4323-8 #### [facility] CLIA [id number] [address] [place] [address] 57078 MCH (RBC) [Entitic mass] 30.5 pg Normal 26.0-34.0 [facility] Comment on above: Order Comment: Speci men Type: BLOOD SPECIMEN Ordering Facility: [facility] Address: [address] [address] Performed By: #### 2 4323-8 #### [facility] CLIA [id number] [address] [place] [address]78 MCHC (RBC) [Mass/Vol] 33.4 g/dL Normal 30.5-36.0 [facility] Comment on above: Order Comment: Speci men Type: BLOOD SPECIMEN Ordering Facility: [facility] Address: [address] [address] Performed By: #### 2 4323-8 #### [facility] CLIA [id number] [address] [place] [address]22 MCV (RBC) [Entitic vol] 91.3 fL Normal 80.0-100.0 [facility] Comment on above: Order Comment: Speci men Type: BLOOD SPECIMEN Ordering Facility: [facility] Address: [address] [address] Performed By: #### 2 4323-8 #### [facility] CLIA [id number] [address] [place] [address] Monocytes (Bld) [#/Vol] 0.42 10*3/uL Normal <0.87 [facility] Comment on above: Order Comment: Speci men Type: BLOOD SPECIMEN Ordering Facility: [facility] Address: [address] [address] Performed By: #### 2 4323-8 #### [facility] CLIA [id number] [address] [place] [address] 79275 Monocytes/100 WBC (Bld) 12.0 % Normal [facility] Comment on above: Order Comment: Speci men Type: BLOOD SPECIMEN Ordering Facility: [facility] Address: [address] [address] Performed By: #### 2 4323-8 #### [facility] CLIA [id number] [address] [place] [address] 08315 Neutrophils (Bld) [#/Vol] 2.43 10*3/uL Normal 1.45-7.50 [facility] Comment on above: Order Comment: Speci men Type: BLOOD SPECIMEN Ordering Facility: [facility] Address: [address] [place] [address] Performed By: #### 2 4323-8 #### [facility] CLIA [id number] [address] [place] [address] 32562 Neutrophils/100 WBC (Bld) 69.6 % Normal [facility] Comment on above: Order Comment: Speci men Type: BLOOD SPECIMEN Ordering Facility: [facility] Address: [address] [place] [address] Performed By: #### 2 4323-8 #### [facility] CLIA [id number] [address] [place] [address] 70735 Nucleated RBC (Bld) [#/Vol] 10*3/uL Normal <0.01 [facility] Comment on above: Order Comment: Speci men Type: BLOOD SPECIMEN Ordering Facility: [facility] Address: [address] [place] [address] Performed By: #### 2 4323-8 #### [facility] CLIA [id number] [address] [place] [address] 82535 Nucleated RBC/100 WBC (Bld) [Ratio] 0.0 /100 WBC Normal [facility] Comment on above: Order Comment: Speci men Type: BLOOD SPECIMEN Ordering Facility: [facility] Address: [address] [place] [address] Performed By: #### 2 4323-8 #### [facility] CLIA [id number] [address] [place] [address] 55028 Platelet mean volume (Bld) [Entitic vol] 9.0 fL Normal 9.0-12.7 [facility] Comment on above: Order Comment: Speci men Type: BLOOD SPECIMEN Ordering Facility: [facility] Address: [address] [place] [address] Performed By: #### 2 4323-8 #### [facility] CLIA [id number] [address] [place] [address] 14050 Platelets (Bld) [#/Vol] 180 10*3/uL Normal 150-400 [facility] Comment on above: Order Comment: Speci men Type: BLOOD SPECIMEN Ordering Facility: [facility] Address: [address] [place] [address] Performed By: #### 2 4323-8 #### [facility] CLIA [id number] [address] [place] [address] 31359 RBC (Bld) [#/Vol] 4.36 10*6/uL Normal 4.20-6.00 [facility] Comment on above: Order Comment: Speci men Type: BLOOD SPECIMEN Ordering Facility: [facility] Address: [address] [place] [address] Performed By: #### 2 4323-8 #### [facility] CLIA [id number] [address] [place] [address] 75597 WBC (Bld) [#/Vol] 3.49 10*3/uL Low 3.70-11.00 [facility] Comment on above: Order Comment: Speci men Type: BLOOD SPECIMEN Ordering Facility: [facility] Address: [address] [place] [address] Performed By: #### 2 4323-8 #### [facility] CLIA [id number] [address] [place] [address] 98803 Comprehensive metabolic 2000 panelon 06-11-2023 Albumin [Mass/Vol] 4.8 g/dL Normal 3.9-4.9 [facility] Comment on above: Order Comment: Speci men Type: BLOOD SPECIMENOrdering Facility: [facility] Address: [address] [place] [address] Performed By: #### 2 4323-8 ####[facility] LABCLIA [id number] [place] [address] ALP [Catalytic activity/Vol] 47 U/L Normal 38-113 [facility] Comment on above: Order Comment: Speci men Type: BLOOD SPECIMENOrdering Facility: [facility] Address: [address] [place] [address] Performed By: #### 2 4323-8 ####[facility] LABCLIA [id number] [place] [address] ALT [Catalytic activity/Vol] 11 U/L Normal 10-54 [facility] Comment on above: Order Comment: Speci men Type: BLOOD SPECIMENOrdering Facility: [facility] Address: [address] [place] [address] Performed By: #### 2 4323-8 ####[facility] LABCLIA [id number] [place] [address] Anion gap [Moles/Vol] 10 mmol/L Normal 9-18 [facility] Comment on above: Order Comment: Speci men Type: BLOOD SPECIMENOrdering Facility: [facility] Address: [address] [place] [address] Performed By: #### 2 4323-8 ####[facility] LABCLIA [id number] [place] [address] AST [Catalytic activity/Vol] 15 U/L Normal 14-40 [facility] Comment on above: Order Comment: Speci men Type: BLOOD SPECIMENOrdering Facility: [facility] Address: [address] [place] [address] Performed By: #### 2 4323-8 ####[facility] LABCLIA [id number] [place] [address] Bilirubin [Mass/Vol] 0.6 mg/dL Normal 0.2-1.3 [facility] Comment on above: Order Comment: Speci men Type: BLOOD SPECIMENOrdering Facility: [facility] Address: [address] [place] [address] Performed By: #### 2 4323-8 ####[facility] LABCLIA [id number] [place] [address] Calcium [Mass/Vol] 10.1 mg/dL Normal 8.5-10.2 [facility] Comment on above: Order Comment: Speci men Type: BLOOD SPECIMENOrdering Facility: [facility] Address: [address] [place] [address] Performed By: #### 2 4323-8 ####[facility] LABCLIA [id number] [place] [address] Chloride [Moles/Vol] 102 mmol/L Normal 97-105 [facility] Comment on above: Order Comment: Speci men Type: BLOOD SPECIMENOrdering Facility: [facility] Address: [address] [place] [address] Performed By: #### 2 4323-8 ####[facility] LABCLIA [id number] [place] [address] CO2 [Moles/Vol] 30 mmol/L Normal 22-30 [facility] Comment on above: Order Comment: Speci men Type: BLOOD SPECIMENOrdering Facility: [facility] Address: [address] [place] [address] Performed By: #### 2 4323-8 ####[facility] LABCLIA [id number] [place] [address] Creatinine [Mass/Vol] 1.30 mg/dL High 0.73-1.22 [facility] Comment on above: Order Comment: Speci men Type: BLOOD SPECIMENOrdering Facility: [facility] Address: [address] [place] [address] Performed By: #### 2 4323-8 ####[facility] LABCLIA [id number] [place] [address] Creatinine and Glomerular filtration rate.predicted panel (S/P/Bld) 56 mL/min/1.73m??? Low >=60 [facility] Comment on above: Order Comment: Marleen beauchamp Type: BLOOD SPECIMENOrdering Facility: [facility] Address: [address] [place] [address] Result Comment: Felicity mated Glomerular Filtration Rate [...] actual GFR. Performed By: #### 2 4323-8 ####[facility] LABCLIA [id number] [place] [address] Glucose [Mass/Vol] 112 mg/dL High 74-99 [facility] Comment on above: Order Comment: Marleen beauchamp Type: BLOOD SPECIMENOrdering Facility: [facility] Address: [address] [place] [address] Result Comment: The [place] [employer] (ADA) provides guidance for cutoff [...] Standards of Medical Care in Diabetes 2016, [place] [employer]. Diabetes Care. 2016.39(Suppl 1). Performed By: #### 2 4323-8 ####[facility] LABCLIA [id number] [place] [address] Potassium [Moles/Vol] 4.4 mmol/L Normal 3.7-5.1 [facility] Comment on above: Order Comment: Speci men Type: BLOOD SPECIMENOrdering Facility: [facility] Address: [address] [place] [address] Performed By: #### 2 4323-8 ####[facility] LABIA [id number] [place] [address] Protein [Mass/Vol] 7.4 g/dL Normal 6.3-8.0 [facility] Comment on above: Order Comment: Speci men Type: BLOOD SPECIMENOrdering Facility: [facility] Address: [address] [place] [address] Performed By: #### 2 4323-8 ####[facility] LABIA [id number] [place] [address] Sodium [Moles/Vol] 142 mmol/L Normal 136-144 [facility] Comment on above: Order Comment: Speci men Type: BLOOD SPECIMENOrdering Facility: [facility] Address: [address] [place] [address] Performed By: #### 2 4323-8 ####[facility] LABIA [id number] [place] [address] Urea nitrogen [Mass/Vol] 29 mg/dL High 9-24 [facility] Comment on above: Order Comment: Speci men Type: BLOOD SPECIMENOrdering Facility: [facility] Address: [address] [place] [address] Performed By: #### 2 4323-8 ####[facility] LABIA [id number] [place] [address] Filippo 05-08-2023 CNOV Office Visit (RADTSA ) MANISH ROOT ([id number]) 1945 M Date Time Provider Department 05/08/23 [...] Yordan Feliz MD cc: Dr. Shaikh Drake [address] [place] [address] Allergies As of Date: 05/08/2023 (No Known Allergies) Date Reviewed: 05/08/2023 Reviewed by: Diana García LPN - Fully Assessed Reason for Visit: (more content not included)... Normal [facility] CNOVSPon 03-20-2023 CNOVSP Visit (SP) Office (HEMAS[place]) MANISH ROOT ([id number]) 1945 M Date Time Provider Department 03/20/23 1:15 PM JOHN ENGLAND During your visit today, we recorded the following information about you: Temperature Pulse Respiration Blood pressure 97.9 degrees 59/minute 16/minute 139/65 Weight Height 79.9 kg 1.669 m John England MD 03/20/2023 1:24 PM Signed NAME: Manish Root NO.: [id number] DATE OF SERVICE: March 20, 2023 (juliana) Some elements in this clinic note that [...] a prior history of colon cancer in 2000. July 31, 2022 - Stage : T3 [...] Ca Stage 3 - 2/5 LN + [place] regimen on protocol Updated Visit, March 20, [...] He has (more content not included)... Normal [facility] CT CHEST W IVCONon 3 CT CHEST W IVCON * * *Final Report* * * DATE OF EXAM: Mar 14 2023 2:26PM [facility] 0539 - CT CHEST [...] No abnormality in the imaged upper abdomen. Humane Agent (topogram) images: No additional findings. IMPRESSION: 1. [...] any questions regarding this interpretation, please call [phone]. If you are unable to reach us at the number above, please feel free to contact [facility] eRadiology at [phone]. [id number] N Normal [facility] ALBUMIN/CREAT RATIO RND URon 02-06-2023 Albumin DL <= 20 mg/L (U) [Mass/Vol] mg/dL Normal [facility] Comment on above: Order Comment: Speci men Type: URINE SPECIMENOrdering Facility: External Submitter Address: , , Performed By: #### U ACR, 95242-6 ####[facility] LABCLIA [id number] [address] STATES OF [facility] Albumin/Creatinine (U) [Mass ratio] <18 Normal <30 [facility] Comment on above: Order Comment: Speci men [...] 3(1), 1-150. Performed By: #### U ACR, 44982-9 ####[facility] LABCLIA [id number] [facility] [id number] [place] CBC W Auto Differential pane l (Bld)on 02-06-2023 Basophils (Bld) [#/Vol] 0.03 10*3/uL Normal <0.11 [facility] Comment on above: Order Comment: Speci men Type: BLOOD SPECIMENOrdering Facility: [facility] Address: [address] [address] Performed By: #### 5 7021-8 ####[facility] LABCLIA [id number] [place] [address] Basophils/100 WBC (Bld) 0.9 % Normal [facility] Comment on above: Order Comment: Speci men Type: BLOOD SPECIMENOrdering Facility: [facility] Address: [address] [place] [address] Performed By: #### 5 7021-8 ####[facility] LABCLIA [id number] [place] [address] Differential cell count method Nom (Bld) Auto Normal [facility] Comment on above: Order Comment: Speci men Type: BLOOD SPECIMENOrdering Facility: [facility] Address: [address] [place] [address] Performed By: #### 5 7021-8 ####[facility] LABCLIA [id number] [place] [address] Eosinophils (Bld) [#/Vol] 0.05 10*3/uL Normal <0.46 [facility] Comment on above: Order Comment: Speci men Type: BLOOD SPECIMENOrdering Facility: [facility] Address: [address] [place] [address] Performed By: #### 5 7021-8 ####[facility] LABCLIA [id number] [place] [address] Eosinophils/100 WBC (Bld) 1.5 % Normal [facility] Comment on above: Order Comment: Speci men Type: BLOOD SPECIMENOrdering Facility: [facility] Address: [address] [place] [address] Performed By: #### 5 7021-8 ####[facility] LABCLIA [id number] [place] [address] Erythrocyte distribution width (RBC) [Ratio] 12.8 % Normal 11.5-15.0 [facility] Comment on above: Order Comment: Speci men Type: BLOOD SPECIMENOrdering Facility: [facility] Address: [address] [place] [address] Performed By: #### 5 7021-8 ####[facility] LABCLIA [id number] [place] [address] Hematocrit (Bld) [Volume fraction] 37.6 % Low 39.0-51.0 [facility] Comment on above: Order Comment: Speci men Type: BLOOD SPECIMENOrdering Facility: [facility] Address: [address] [place] [address] Performed By: #### 5 7021-8 ####[facility] LABCLIA [id number] [place] [address] Hemoglobin (Bld) [Mass/Vol] 12.6 g/dL Low 13.0-17.0 [facility] Comment on above: Order Comment: Speci men Type: BLOOD SPECIMENOrdering Facility: [facility] Address: [address] [place] [address] Performed By: #### 5 7021-8 ####[facility] LABCLIA [id number] [place] [address] Immature granulocytes (Bld) [#/Vol] 10*3/uL Normal <0.10 [facility] Comment on above: Order Comment: Speci men Type: BLOOD SPECIMENOrdering Facility: [facility] Address: [address] [place] [address] Performed By: #### 5 7021-8 ####[facility] LABCLIA [id number] [place] [address] Immature granulocytes/100 WBC (Bld) 0.6 % Normal [facility] Comment on above: Order Comment: Speci men Type: BLOOD SPECIMENOrdering Facility: [facility] Address: [address] [place] [address] Performed By: #### 5 7021-8 ####[facility] LABCLIA [id number] [place] [address] Lymphocytes (Bld) [#/Vol] 0.53 10*3/uL Low 1.00-4.00 [facility] Comment on above: Order Comment: Speci men Type: BLOOD SPECIMENOrdering Facility: [facility] Address: [address] [place] [address] Performed By: #### 5 7021-8 ####[facility] LABCLIA [id number] [place] [address] Lymphocytes/100 WBC (Bld) 15.5 % Normal [facility] Comment on above: Order Comment: Speci men Type: BLOOD SPECIMENOrdering Facility: [facility] Address: [address] [place] [address] Performed By: #### 5 7021-8 ####[facility] LABCLIA [id number] [place] [address] MCH (RBC) [Entitic mass] 32.0 pg Normal 26.0-34.0 [facility] Comment on above: Order Comment: Speci men Type: BLOOD SPECIMENOrdering Facility: [facility] Address: [address] [place] [address] Performed By: #### 5 7021-8 ####[facility] LABCLIA [id number] [place] [address] MCHC (RBC) [Mass/Vol] 33.5 g/dL Normal 30.5-36.0 [facility] Comment on above: Order Comment: Speci men Type: BLOOD SPECIMENOrdering Facility: [facility] Address: [address] [address] Performed By: #### 5 7021-8 ####[facility] LABCLIA [id number] [place] [address] MCV (RBC) [Entitic vol] 95.4 fL Normal 80.0-100.0 [facility] Comment on above: Order Comment: Speci men Type: BLOOD SPECIMENOrdering Facility: [facility] Address: [address] [address] Performed By: #### 5 7021-8 ####[facility] LABCLIA [id number] [place] [address] Monocytes (Bld) [#/Vol] 0.32 10*3/uL Normal <0.87 [facility] Comment on above: Order Comment: Speci men Type: BLOOD SPECIMENOrdering Facility: [facility] Address: [address] [address] Performed By: #### 5 7021-8 ####[facility] LABCLIA [id number] [place] [address] Monocytes/100 WBC (Bld) 9.3 % Normal [facility] Comment on above: Order Comment: Speci men Type: BLOOD SPECIMENOrdering Facility: [facility] Address: [address] [address] Performed By: #### 5 7021-8 ####[facility] LABCLIA [id number] [place] [address] Neutrophils (Bld) [#/Vol] 2.48 10*3/uL Normal 1.45-7.50 [facility] Comment on above: Order Comment: Speci men Type: BLOOD SPECIMENOrdering Facility: [facility] Address: [address] [place] [address] Performed By: #### 5 7021-8 ####[facility] LABCLIA [id number] [place] [address] Neutrophils/100 WBC (Bld) 72.2 % Normal [facility] Comment on above: Order Comment: Speci men Type: BLOOD SPECIMENOrdering Facility: [facility] Address: [address] [place] [address] Performed By: #### 5 7021-8 ####[facility] LABCLIA [id number] [place] [address] Nucleated RBC (Bld) [#/Vol] 10*3/uL Normal <0.01 [facility] Comment on above: Order Comment: Speci men Type: BLOOD SPECIMENOrdering Facility: [facility] Address: [address] [place] [address] Performed By: #### 5 7021-8 ####[facility] LABCLIA [id number] [place] [address] Nucleated RBC/100 WBC (Bld) [Ratio] 0.0 /100 WBC Normal [facility] Comment on above: Order Comment: Speci men Type: BLOOD SPECIMENOrdering Facility: [facility] Address: [address] [place] [address] Performed By: #### 5 7021-8 ####[facility] LABCLIA [id number] [place] [address] Platelet mean volume (Bld) [Entitic vol] 9.4 fL Normal 9.0-12.7 [facility] Comment on above: Order Comment: Speci men Type: BLOOD SPECIMENOrdering Facility: [facility] Address: [address] [place] [address] Performed By: #### 5 7021-8 ####[facility] LABCLIA [id number] [place] [address] Platelets (Bld) [#/Vol] 153 10*3/uL Normal 150-400 [facility] Comment on above: Order Comment: Speci men Type: BLOOD SPECIMENOrdering Facility: [facility] Address: [address] Performed By: #### 5 7021-8 ####[facility] LABIA [id number] [place] [address] RBC (Bld) [#/Vol] 3.94 10*6/uL Low 4.20-6.00 [facility] Comment on above: Order Comment: Speci men Type: BLOOD SPECIMENOrdering Facility: [facility] Address: [address] [place] [address] Performed By: #### 5 7021-8 ####[facility] LABIA [id number] [place] [address] WBC (Bld) [#/Vol] 3.43 10*3/uL Low 3.70-11.00 [facility] Comment on above: Order Comment: Speci men Type: BLOOD SPECIMENOrdering Facility: [facility] Address: [address] [place] [address] Performed By: #### 5 7021-8 ####[facility] LABIA [id number] [place] [address] KENANOVverna 02-06-2023 CNOV Office Visit (VINAYTSA ) [place]OT ([id number]) 1945 M Date Time Provider Department 02/06/23 11:45 AM Yordan FELIZ During your visit today, [...] Yordan Feliz MD cc: Dr. Shaikh Drake [address] [place] [address] Referring Provider: Yordan FELIZ [[id number]] Allergies As of Date: 02/06/2023 (No Known [...] - fen (more content not included)... Normal [facility] CNOVSPon 02-06-2023 CNOVSP Visit (SP) Office (HEMASA) [place] ([id number]) 1945 M Date Time Provider Department 02/06/23 [...] Vivek, MD 02/06/2023 12:24 PM Signed NAME: Dk Manish [facility] NO.: [id number] DATE OF SERVICE: February 06, 2023 (Jacquelyn) [...] Ca Stage 3 - 2/5 LN + [place] regimen on protocol Updated Visit, February 06, [...] with his (more content not included)... Normal [facility] Comprehensive metabolic 2000 panelon 02-06-2023 Albumin [Mass/Vol] 4.5 g/dL Normal 3.9-4.9 [facility] Comment on above: Order Comment: Speci men Type: BLOOD SPECIMENOrdering Facility: [facility] Address: Eric [place] [address] Performed By: #### 2 4323-8 ####[facility] LABCLIA [id number] [place] [address] ALP [Catalytic activity/Vol] 58 U/L Normal 38-113 [facility] Comment on above: Order Comment: Speci men Type: BLOOD SPECIMENOrdering Facility: [facility] Address: [address] [place] [address] Performed By: #### 2 4323-8 ####[facility] LABCLIA [id number] [place] [address] ALT [Catalytic activity/Vol] 9 U/L Low 10-54 [facility] Comment on above: Order Comment: Speci men Type: BLOOD SPECIMENOrdering Facility: [facility] Address: [address] [place] [address] Performed By: #### 2 4323-8 ####[facility] LABCLIA [id number] [place] [address] Anion gap [Moles/Vol] 7 mmol/L Low 9-18 [facility] Comment on above: Order Comment: Speci men Type: BLOOD SPECIMENOrdering Facility: [facility] Address: [address] [place] [address] Performed By: #### 2 4323-8 ####[facility] LABCLIA [id number] [place] [address] AST [Catalytic activity/Vol] 13 U/L Low 14-40 [facility] Comment on above: Order Comment: Speci men Type: BLOOD SPECIMENOrdering Facility: [facility] Address: [address] [place] [address] Performed By: #### 2 4323-8 ####[facility] LABCLIA [id number] [place] [address] Bilirubin [Mass/Vol] 0.3 mg/dL Normal 0.2-1.3 [facility] Comment on above: Order Comment: Speci men Type: BLOOD SPECIMENOrdering Facility: [facility] Address: [address] [place] [address] Performed By: #### 2 4323-8 ####[facility] LABCLIA [id number] [place] [address] Calcium [Mass/Vol] 9.9 mg/dL Normal 8.5-10.2 [facility] Comment on above: Order Comment: Speci men Type: BLOOD SPECIMENOrdering Facility: [facility] Address: [address] [place] [address] Performed By: #### 2 4323-8 ####[facility] LABCLIA [id number] [place] [address] Chloride [Moles/Vol] 102 mmol/L Normal 97-105 [facility] Comment on above: Order Comment: Speci men Type: BLOOD SPECIMENOrdering Facility: [facility] Address: [address] [place] [address] Performed By: #### 2 4323-8 ####[facility] LABCLIA [id number] [place] [address] CO2 [Moles/Vol] 30 mmol/L Normal 22-30 [facility] Comment on above: Order Comment: Speci men Type: BLOOD SPECIMENOrdering Facility: [facility] Address: [address] [place] [address] Performed By: #### 2 4323-8 ####[facility] LABCLIA [id number] [place] [address] Creatinine [Mass/Vol] 1.20 mg/dL Normal 0.73-1.22 [facility] Comment on above: Order Comment: Speci men Type: BLOOD SPECIMENOrdering Facility: [facility] Address: [address] [place] [address] Performed By: #### 2 4323-8 ####[facility] LABCLIA [id number] [place] [address] ESTIMATED GLOMERULAR FILTRATION RATE 62 mL/min/1.73m??? Normal >=60 [facility] Comment on above: Order Comment: Speci men Type: BLOOD SPECIMENOrdering Facility: [facility] Address: [address] [id number] Result Comment: Felicity mated Glomerular Filtration Rate [...] actual GFR. Performed By: #### 2 4323-8 ####[facility] LABCLIA [id number] [place] [address] Glucose [Mass/Vol] 98 mg/dL Normal 74-99 [facility] Comment on above: Order Comment: Marleen beauchamp Type: BLOOD SPECIMENOrdering Facility: [facility] Address: [address] [place] [address] Result Comment: The [place] Diabetes Association (ADA) provides guidance for cutoff [...] Standards of Medical Care in Diabetes 2016, [place] Diabetes Association. Diabetes Care. 2016.39(Suppl 1). Performed By: #### 2 4323-8 ####[facility] LABCLIA [id number] [place] [address] Potassium [Moles/Vol] 4.9 mmol/L Normal 3.7-5.1 [facility] Comment on above: Order Comment: Marleen beauchamp Type: BLOOD SPECIMENOrdering Facility: [facility] Address: [address] [id number] Performed By: #### 2 4323-8 ####[facility] LABCLIA [id number] [place] [address] Protein [Mass/Vol] 6.7 g/dL Normal 6.3-8.0 [facility] Comment on above: Order Comment: Speci men Type: BLOOD SPECIMENOrdering Facility: [facility] Address: [address] [address] Performed By: #### 2 4323-8 ####[facility] LABCLIA [id number] [place] [address] Sodium [Moles/Vol] 139 mmol/L Normal 136-144 [facility] Comment on above: Order Comment: Speci men Type: BLOOD SPECIMENOrdering Facility: [facility] Address: [address] [place] [address] Performed By: #### 2 4323-8 ####[facility] LABCLIA [id number] [place] [address] Urea nitrogen [Mass/Vol] 25 mg/dL High 9-24 [facility] Comment on above: Order Comment: Speci men Type: BLOOD SPECIMENOrdering Facility: [facility] Address: [address] [place] [address] Performed By: #### 2 4323-8 ####[facility] LABCLIA [id number] [place] [address] Creat ?Tm Ur-mCncon 02-07-20 23 Creatinine (U) [Mass/Vol] 67.2 mg/dL Normal 20.0-300.0 [facility] Comment on above: Order Comment: Speci men Type: BLOOD SPECIMEN [facility] Address: [address] [place] [address] Performed By: #### 2 4323-8 #### [facility] LAB CLIA [id number] [address] [place] [address] Order Comment: Speci men Type: URINE SPECIMENOrdering Facility: External Submitter Address: , , Performed By: #### U ACR, 65599-8 ####[facility] LABCLIA [id number] [address] [address] [place] HbA1c (Bld)on 02-06-2023 Average glucose Estimated from glycated hemoglobin (Bld) [Mass/Vol] 117 mg/dL Normal [facility] Comment on above: Order Comment: Marleen beauchamp Type: BLOOD SPECIMEN Ordering Facility: External Submitter Address: , , Result Comment: eAG: (Estimated average glucose) is a calculated value from HgbA1c and is circulation sales representative of the average blood glucose level in the last 2-3 month period. Performed By: #### 5 5454-3 #### [facility] LAB CLIA [id number] [address] [place] [address] [place] HbA1c (Bld) [Mass fraction] 5.7 % High 4.3-5.6 [facility] Comment on above: Order Comment: Marleen beauchamp Type: BLOOD SPECIMEN Ordering Facility: External Submitter Address: , , Result Comment: Amer [place] Diabetes Association guidelines indicate that patients with HgbA1c in the range 5.7-6.4% are at increased risk for development of diabetes, and intervention by lifestyle modification may be beneficial. HgbA1c greater or equal to 6.5% is considered diagnostic of diabetes. Performed By: #### 5 5454-3 #### [facility] CLIA [id number] [address] [address] [place] Lipid 1996 panelon 3 Cholesterol [Mass/Vol] 168 mg/dL Normal <200 [facility] Comment on above: Order Comment: Marleen beauchamp Type: BLOOD SPECIMEN [facility] Address: [address] [place] [address] Result Comment: <200 mg/dL, Desirable 200-239 mg/dL, Borderline high >239 mg/dL, High Performed By: #### 2 4323-8 #### [facility] CLIA [id number] [address] [place] [address] Cholesterol in HDL [Mass/Vol] 41 mg/dL Normal >39 [facility] Comment on above: Order Comment: Marleen nito Type: BLOOD SPECIMEN [facility] Address: [address] [place] [address] Result Comment: 40-5 9 mg/dL, Acceptable >59 mg/dL, High: Negative risk factor for coronary heart disease <40 mg/dL, Low: Positive risk factor for coronary heart disease Performed By: #### 2 4323-8 #### [facility] CLIA [id number] [address] [place] [address] Cholesterol in LDL [Mass/Vol] 109 mg/dL High <100 [facility] Comment on above: Order Comment: Reggiebeverley beauchamp Type: BLOOD SPECIMEN [facility] Address: [address] [place] [address] Result Comment: <100 mg/dL, Optimal 100-129 mg/dL, Near optimal/above optimal 130-159 mg/dL, Borderline high 160-189 mg/dL, High >189 mg/dL, Very high Secondary prevention optimal LDL Cholesterol levels are recommended to be < 70 mg/dL Performed By: #### 2 4323-8 #### [facility] CLIA [id number] [address] [place] [address] Cholesterol in LDL/Cholesterol in HDL [Mass ratio] 2.66 {ratio} High <2.54 [facility] Comment on above: Order Comment: Marleen beauchamp Type: BLOOD SPECIMEN [facility] Address: [address] [place] [address] Result Comment: Refe rence: 1. National Cholesterol Education Program ATP III Guideline At-A-Glance Quick Desk Reference: National Heart, Lung, and Blood Andes. National Institutes of Health. 2001: NIH Publication No. 01-3305. 2. An International Atherosclerosis Society position paper: global recommendations for the management of dyslipidemia: executive summary, Atherosclerosis. 2014: 232(2):410-413. Performed By: #### 2 4323-8 #### [facility] CLIA [id number] [address] [place] [address] Cholesterol in VLDL [Mass/Vol] 18 mg/dL Normal <30 [facility] Comment on above: Order Comment: Speci men Type: BLOOD SPECIMEN [facility] Address: [address] [place] [address] Performed By: #### 2 4323-8 #### [facility] CLIA [id number] [address] [place] [address] Cholesterol non HDL [Mass/Vol] 127 mg/dL Normal <130 [facility] Comment on above: Order Comment: Speci men Type: BLOOD SPECIMEN [facility] Address: [address] [place] [address] Result Comment: <130 mg/dL, Optimal 130-159 mg/dL, Near optimal/above optimal 160-189 mg/dL, Borderline high 190-219 mg/dL, High >219 mg/dL, Very high Secondary prevention optimal non HDL Cholesterol levels are recommended to be <100 mg/dL Performed By: #### 2 4323-8 #### [facility] CLIA [id number] [address] [place] [address] Cholesterol.total/Ch olesterol in HDL [Mass ratio] 4.10 {ratio} Normal <5.10 [facility] Comment on above: Order Comment: Speci men Type: BLOOD SPECIMEN [facility] Address: [address] [place] [address] Performed By: #### 2 4323-8 #### [facility] CLIA [id number] [address] [place] [address] FASTING TIME 12 hrs Normal [facility] Comment on above: Order Comment: Speci men Type: BLOOD SPECIMEN [facility] Address: [address] [place] [address] Performed By: #### 2 4323-8 #### [facility] CLIA [id number] [address] [place] [address] Triglyceride [Mass/Vol] 89 mg/dL Normal <150 [facility] Comment on above: Order Comment: Speci men Type: BLOOD SPECIMEN [facility] Address: [address] [place], [place] [address], [place] [address] Result Comment: <150 mg/dL, Normal 150-199 mg/dL, Borderline high 200-499 mg/dL, High >499 mg/dL, Very high Performed By: #### 2 4323-8 #### [facility] CLIA [id number] [address] [place] [address] NM PET/CT SKULL-THIGH SUBQon 01-29-2023 NM PET/CT [...] SKELETON: There are no hypermetabolic osseous lesions. Humane Agent (topogram) images:No additional findings. -- IMPRESSION: 1. [...] any questions regarding this interpretation, please call [phone]. If you are unable to reach us at the number above, please feel free to contact [facility] eRadiology at [phone]. [id number] Normal [facility] CNOVon 11-28-2022 CNOV Office Visit (RADTSA ) [place] ([id number]) 1945 M Date Time Provider Department 11/28/22 [...] N1 M0 RADIATION SUMMARY: DATES OF TREATMENT: 2-27-2023 to 10-22-2022 AREA TREATED: OropharBilNeck DELIVERED DOSE: [...] by: Yordan Feliz MD cc: Mannie Nelson [facility] Nel [place] [facility] [place] [address] [place] [address] Referring Provider: Yordan FELIZ [[id number]] Allergies As of Date: 11/28/2022 (No Known Allergies) Date Reviewed: 11/28/2022 Reviewed by: Nela Samayoa RN - Fully Assessed Reason for Visit: Head and Neck Cancer [551] 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 Normal [facility] CBC W Auto Differential pane l (Bld)on 11-07-2022 Basophils (Bld) [#/Vol] 10*3/uL Normal <0.11 [facility] Comment on above: Order Comment: Speci men Type: BLOOD SPECIMEN [facility] Address: [address] [address] Performed By: #### 2 4323-8 #### [facility] CLIA [id number] [address] [place] [address] Basophils/100 WBC (Bld) 0.6 % Normal [facility] Comment on above: Order Comment: Speci men Type: BLOOD SPECIMEN [facility] Address: [address] [address] Performed By: #### 2 3-8 #### [facility] CLIA [id number] [address] [place] [address] Differential cell count method Nom (Bld) Auto Normal [facility] Comment on above: Order Comment: Speci men Type: BLOOD SPECIMEN [facility] Address: [address] [address] Performed By: #### 2 4323-8 #### [facility] CLIA [id number] [address] [place] [address] Eosinophils (Bld) [#/Vol] 10*3/uL Normal <0.46 [facility] Comment on above: Order Comment: Speci men Type: BLOOD SPECIMEN [facility] Address: [address] [address] Performed By: #### 2 4323-8 #### [facility] CLIA [id number] [address] [place] [address] Eosinophils/100 WBC (Bld) 0.6 % Normal [facility] Comment on above: Order Comment: Speci men Type: BLOOD SPECIMEN [facility] Address: [address] [address] Performed By: #### 2 4323-8 #### [facility] CLIA [id number] [address] [place] [address] Erythrocyte distribution width (RBC) [Ratio] 16.7 % High 11.5-15.0 [facility] Comment on above: Order Comment: Speci men Type: BLOOD SPECIMEN [facility] Address: [address] [place] [address] Performed By: #### 2 4323-8 #### [facility] CLIA [id number] [address] [place] [address] Hematocrit (Bld) [Volume fraction] 32.2 % Low 39.0-51.0 [facility] Comment on above: Order Comment: Speci men Type: BLOOD SPECIMEN [facility] Address: [address] [place] [address] Performed By: #### 2 4323-8 #### [facility] CLIA [id number] [address] [place] [address] Hemoglobin (Bld) [Mass/Vol] 11.0 g/dL Low 13.0-17.0 [facility] Comment on above: Order Comment: Speci men Type: BLOOD SPECIMEN [facility] Address: [address] [address] Performed By: #### 2 4323-8 #### [facility] CLIA [id number] [address] [place] [address] Immature granulocytes (Bld) [#/Vol] 0.03 10*3/uL Normal <0.10 [facility] Comment on above: Order Comment: Speci men Type: BLOOD SPECIMEN [facility] Address: [address] [place] [address] Performed By: #### 2 4323-8 #### [facility] CLIA [id number] [address] [place] [address] Immature granulocytes/100 WBC (Bld) 0.9 % Normal [facility] Comment on above: Order Comment: Speci men Type: BLOOD SPECIMEN [facility] Address: [address] [place] [address] Performed By: #### 2 4323-8 #### [facility] CLIA [id number] [address] [place] [address] Lymphocytes (Bld) [#/Vol] 0.31 10*3/uL Low 1.00-4.00 [facility] Comment on above: Order Comment: Speci men Type: BLOOD SPECIMEN [facility] Address: [address] [place] [address] Performed By: #### 2 4323-8 #### [facility] CLIA [id number] [address] [place] [address] Lymphocytes/100 WBC (Bld) 8.9 % Normal [facility] Comment on above: Order Comment: Speci men Type: BLOOD SPECIMEN [facility] Address: [address] [place] [address] Performed By: #### 2 4323-8 #### [facility] CLIA [id number] [address] [place] [address] MCH (RBC) [Entitic mass] 31.5 pg Normal 26.0-34.0 [facility] Comment on above: Order Comment: Speci men Type: BLOOD SPECIMEN [facility] Address: [address] [place] [address] Performed By: #### 2 4323-8 #### [facility] CLIA [id number] [address] [place] [address] MCHC (RBC) [Mass/Vol] 34.2 g/dL Normal 30.5-36.0 [facility] Comment on above: Order Comment: Speci men Type: BLOOD SPECIMEN [facility] Address: [address] [address] Performed By: #### 2 4323-8 #### [facility] CLIA [id number] [address] [place] [address] MCV (RBC) [Entitic vol] 92.3 fL Normal 80.0-100.0 [facility] Comment on above: Order Comment: Speci men Type: BLOOD SPECIMEN [facility] Address: [address] [address] Performed By: #### 2 4323-8 #### [facility] CLIA [id number] [address] [place] [address] Monocytes (Bld) [#/Vol] 0.38 10*3/uL Normal <0.87 [facility] Comment on above: Order Comment: Speci men Type: BLOOD SPECIMEN [facility] Address: [address] [address] Performed By: #### 2 4323-8 #### [facility] CLIA [id number] [address] [place] [address] Monocytes/100 WBC (Bld) 11.0 % Normal [facility] Comment on above: Order Comment: Speci men Type: BLOOD SPECIMEN [facility] Address: [address] [address] Performed By: #### 2 4323-8 #### [facility] CLIA [id number] [address] [place] [address] Neutrophils (Bld) [#/Vol] 2.71 10*3/uL Normal 1.45-7.50 [facility] Comment on above: Order Comment: Speci men Type: BLOOD SPECIMEN [facility] Address: [address] [place] [address] Performed By: #### 2 4323-8 #### [facility] CLIA [id number] [address] [place] [address] [place] [address] Neutrophils/100 WBC (Bld) 78.0 % Normal [facility] Comment on above: Order Comment: Speci men Type: BLOOD SPECIMEN [facility] Address: [address] [address] Performed By: #### 2 4323-8 #### [facility] CLIA [id number] [address] [place] [address] Nucleated RBC (Bld) [#/Vol] 10*3/uL Normal <0.01 [facility] Comment on above: Order Comment: Speci men Type: BLOOD SPECIMEN [facility] Address: [address] [address] Performed By: #### 2 4323-8 #### [facility] CLIA [id number] [address] [place] [address] Nucleated RBC/100 WBC (Bld) [Ratio] 0.0 /100 WBC Normal [facility] Comment on above: Order Comment: Speci men Type: BLOOD SPECIMEN [facility] Address: [address] [address] Performed By: #### 2 4323-8 #### [facility] CLIA [id number] [address] [place] [address] Platelet mean volume (Bld) [Entitic vol] 9.2 fL Normal 9.0-12.7 [facility] Comment on above: Order Comment: Speci men Type: BLOOD SPECIMEN [facility] Address: [address] Performed By: #### 2 4323-8 #### [facility] CLIA [id number] [address] [place] [address] Platelets (Bld) [#/Vol] 181 10*3/uL Normal 150-400 [facility] Comment on above: Order Comment: Speci men Type: BLOOD SPECIMEN [facility] Address: [address] Performed By: #### 2 4323-8 #### [facility] [facility] CLIA [id number] [address] [place] [address] RBC (Bld) [#/Vol] 3.49 10*6/uL Low 4.20-6.00 [facility] Comment on above: Order Comment: Speci men Type: BLOOD SPECIMEN Ordering Facility: [facility] Address: [address] [place], [place] [address] Performed By: #### 2 4323-8 #### [facility] CLIA [id number] [address] [place] [address] WBC (Bld) [#/Vol] 3.47 10*3/uL Low 3.70-11.00 [facility] Comment on above: Order Comment: Speci men Type: BLOOD SPECIMEN Ordering Facility: [facility] Address: [address] [place] [address] Performed By: #### 2 4323-8 #### [facility] CLIA [id number] [address] [place] [address] CNOVSPon 11-07-2022 CNOVSP Visit (SP) Office (HEMASA) MANISH ROOT ([id number]) 1945 M Date Time Provider Department 11/07/22 9:15 AM JOHN ENGLAND During your visit today, we recorded the following information about you: Temperature Pulse Respiration Blood pressure 97.5 degrees 58/minute 16/minute 129/66 Weight Height 78.1 kg 1.669 m John England MD 11/07/2022 9:56 AM Signed NAME: Manish Root [facility] NO.: [id number] DATE OF SERVICE: November 07, 2022 (Jacquelyn) Some elements in this clinic note that are critical to medical decision making have been carefully reviewed and included from a prior clinic note dated: October 31, 2022 (Surinder) Referring Provider: Dr. Татьяна Feliz Additional Clinicians [...] Ca Stage 3 - 2/5 LN + [place] regimen on protocol Updated Visit, November 07, [...] ECOG P (more content not included)... Normal [facility] Comprehensive metabolic 2000 panelon 11-07-2022 Albumin [Mass/Vol] 4.3 g/dL Normal 3.9-4.9 [facility] Comment on above: Order Comment: Speci men Type: BLOOD SPECIMEN Ordering Facility: [facility] Address: [address] [address] Performed By: #### 2 4323-8 #### [facility] CLIA [id number] [address] [place] [address] ALP [Catalytic activity/Vol] 57 U/L Normal 38-113 [facility] Comment on above: Order Comment: Speci men Type: BLOOD SPECIMEN Ordering Facility: [facility] Address: [address] [address] Performed By: #### 2 4323-8 #### [facility] CLIA [id number] [address] [place] [address] ALT [Catalytic activity/Vol] 8 U/L Low 10-54 [facility] Comment on above: Order Comment: Speci men Type: BLOOD SPECIMEN Ordering Facility: [facility] Address: [address] [address] Performed By: #### 2 4323-8 #### [facility] CLIA [id number] [address] [place] [address] Anion gap [Moles/Vol] 8 mmol/L Low 9-18 [facility] Comment on above: Order Comment: Speci men Type: BLOOD SPECIMEN Ordering Facility: [facility] Address: [address] [address] Performed By: #### 2 4323-8 #### [facility] CLIA [id number] [address] [place] [address] AST [Catalytic activity/Vol] 12 U/L Low 14-40 [facility] Comment on above: Order Comment: Speci men Type: BLOOD SPECIMEN Ordering Facility: [facility] Address: [address] [address] Performed By: #### 2 4323-8 #### [facility] CLIA [id number] [address] [place] [address] Bilirubin [Mass/Vol] 0.4 mg/dL Normal 0.2-1.3 [facility] Comment on above: Order Comment: Speci men Type: BLOOD SPECIMEN Ordering Facility: [facility] Address: [address] [address] Performed By: #### 2 4323-8 #### [facility] CLIA [id number] [address] [place] [address] Calcium [Mass/Vol] 9.8 mg/dL Normal 8.5-10.2 [facility] Comment on above: Order Comment: Speci men Type: BLOOD SPECIMEN Ordering Facility: [facility] Address: [address] [address] Performed By: #### 2 4323-8 #### [facility] CLIA [id number] [address] [place] [address] Chloride [Moles/Vol] 102 mmol/L Normal 97-105 [facility] Comment on above: Order Comment: Speci men Type: BLOOD SPECIMEN Ordering Facility: [facility] Address: [address] [address] Performed By: #### 2 4323-8 #### [facility] CLIA [id number] [address] [place] [address] CO2 [Moles/Vol] 29 mmol/L Normal 22-30 [facility] Comment on above: Order Comment: Speci men Type: BLOOD SPECIMEN Ordering Facility: [facility] Address: [address] [place] [address] Performed By: #### 2 4323-8 #### [facility] CLIA [id number] [address] [place] [address] Creatinine [Mass/Vol] 1.07 mg/dL Normal 0.73-1.22 [facility] Comment on above: Order Comment: Speci men Type: BLOOD SPECIMEN Ordering Facility: [facility] Address: [address] [place] [address] Performed By: #### 2 4323-8 #### [facility] CLIA [id number] [address] [place] [address] ESTIMATED GLOMERULAR FILTRATION RATE 71 mL/min/1.73m??? Normal >=60 [facility] Comment on above: Order Comment: Speci men Type: BLOOD SPECIMEN Ordering Facility: [facility] Address: [address] [place] [address] Result Comment: Felicity mated Glomerular Filtration Rate [...] GFR. Performed By: #### 2 4323-8 #### [facility] CLIA [id number] [address] [place] [address] Glucose [Mass/Vol] 105 mg/dL High 74-99 [facility] Comment on above: Order Comment: Speci men Type: BLOOD SPECIMEN Ordering Facility: [facility] Address: [address] [place] [address] Result Comment: The [place] [employer] (ADA) provides guidance for cutoff [...] Standards of Medical Care in Diabetes 2016, [place] [employer]. Diabetes Care. 2016.39(Suppl 1). Performed By: #### 2 4323-8 #### [facility] CLIA [id number] [address] [place] [address] Potassium [Moles/Vol] 4.6 mmol/L Normal 3.7-5.1 [facility] Comment on above: Order Comment: Speci men Type: BLOOD SPECIMEN Ordering Facility: [facility] Address: [address] [address] Performed By: #### 2 4323-8 #### [facility] CLIA [id number] [address] [place] [address] Protein [Mass/Vol] 6.9 g/dL Normal 6.3-8.0 [facility] Comment on above: Order Comment: Speci men Type: BLOOD SPECIMEN Ordering Facility: [facility] Address: [address] [address] Performed By: #### 2 4323-8 #### [facility] CLIA [id number] [address] [place] [address] Sodium [Moles/Vol] 139 mmol/L Normal 136-144 [facility] Comment on above: Order Comment: Speci men Type: BLOOD SPECIMEN Ordering Facility: [facility] Address: [address] [address] Performed By: #### 2 4323-8 #### [facility] CLIA [id number] [address] [place] [address] Urea nitrogen [Mass/Vol] 23 mg/dL Normal 9-24 [facility] Comment on above: Order Comment: Speci men Type: BLOOD SPECIMEN Ordering Facility: [facility] Address: [address] [place] [address] [place] [address] Performed By: #### 2 4323-8 #### [facility] CLIA [id number] [address] [place] [address] Comprehensive metabolic 2000 panelon 10-08-2022 Albumin [Mass/Vol] 4.1 g/dL 3.9 - 4.9 g/dL [facility] ALP [Catalytic activity/Vol] 60 U/L 38 - 113 U/L [facility] ALT [Catalytic activity/Vol] 27 U/L 10 - 54 U/L [facility] Anion gap [Moles/Vol] 10 mmol/L 9 - 18 mmol/L [facility] AST [Catalytic activity/Vol] 23 U/L 14 - 40 U/L [facility] Bilirubin [Mass/Vol] 0.5 mg/dL 0.2 - 1 .3 mg/dL [facility] Calcium [Mass/Vol] 9.5 mg/dL 8.5 - 10. 2 mg/dL [facility] Chloride [Moles/Vol] 96 mmol/L Low 97 - 10 5 mmol/L [facility] CO2 [Moles/Vol] 29 mmol/L 22 - 30 mmol/L [facility] Creatinine [Mass/Vol] 0.96 mg/dL 0.73 - 1.22 mg/dL [facility] Estimated Glomerular Filtration Rate 81 mL/min/1.73m >=60 mL/min/1.73m [facility] Glucose [Mass/Vol] 105 mg/dL High 74 - 99 mg/dL [facility] Potassium [Moles/Vol] 4.2 mmol/L 3.7 - 5.1 mmol/L [facility] Protein [Mass/Vol] 6.8 g/dL 6.3 - 8.0 g/dL [facility] Sodium [Moles/Vol] 135 mmol/L Low 136 - 144 mmol/L [facility] Urea nitrogen [Mass/Vol] 22 mg/dL 9 - 24 mg/dL [facility] CBC W Auto Differential pane l (Bld)on 10-01-2022 Basophils (Bld) [#/Vol] <0.11 k/uL [facility] Basophils/100 WBC (Bld) 0.4 % [facility] Differential cell count method Nom (Bld) Auto [facility] Eosinophils (Bld) [#/Vol] 0.03 10*3/uL <0.46 k/uL [facility] Eosinophils/100 WBC (Bld) 1.3 % [facility] Erythrocyte distribution width (RBC) [Ratio] 13.2 % 11.5 - 15.0 % [facility] Hematocrit (Bld) [Volume fraction] 36.2 % Low 39.0 - 51.0 % [facility] Hemoglobin (Bld) [Mass/Vol] 12.3 g/dL Low 13.0 - 17.0 g/dL [facility] Immature granulocytes (Bld) [#/Vol] <0.10 k/uL [facility] Immature granulocytes/100 WBC (Bld) 0.4 % [facility] Lymphocytes (Bld) [#/Vol] 0.27 10*3/uL Low 1.00 - 4.00 k/uL [facility] Lymphocytes/100 WBC (Bld) 12.0 % [facility] MCH (RBC) [Entitic mass] 30.3 pg 26.0 - 34.0 pg [facility] MCHC (RBC) [Mass/Vol] 34.0 g/dL 30.5 - 36.0 g/dL [facility] MCV (RBC) [Entitic vol] 89.2 fL 80.0 - 100.0 fL [facility] Monocytes (Bld) [#/Vol] 0.23 10*3/uL <0.87 k/uL [facility] Monocytes/100 WBC (Bld) 10.2 % [facility] Neutrophils (Bld) [#/Vol] 1.70 10*3/uL 1.45 - 7.50 k/uL [facility] Neutrophils/100 WBC (Bld) 75.7 % [facility] Nucleated RBC (Bld) [#/Vol] <0.01 k/uL [facility] Nucleated RBC/100 WBC (Bld) [Ratio] 0.0 /100 WBC [facility] Platelet mean volume (Bld) [Entitic vol] 9.5 fL 9.0 - 12.7 fL [facility] Platelets (Bld) [#/Vol] 97 10*3/uL Low 150 - 400 k/uL [facility] RBC (Bld) [#/Vol] 4.06 10*6/uL Low 4.20 - 6.0 0 m/uL [facility] WBC (Bld) [#/Vol] 2.25 10*3/uL Low 3.70 - 11. 00 k/uL [facility] Comprehensive metabolic 2000 panelon 10-01-2022 Albumin [Mass/Vol] 4.2 g/dL 3.9 - 4.9 g/dL [facility] ALP [Catalytic activity/Vol] 69 U/L 38 - 113 U/L [facility] ALT [Catalytic activity/Vol] 21 U/L 10 - 54 U/L [facility] Anion gap [Moles/Vol] 11 mmol/L 9 - 18 mmol/L [facility] AST [Catalytic activity/Vol] 14 U/L 14 - 40 U/L [facility] Bilirubin [Mass/Vol] 0.6 mg/dL 0.2 - 1 .3 mg/dL [facility] Calcium [Mass/Vol] 9.7 mg/dL 8.5 - 10. 2 mg/dL [facility] Chloride [Moles/Vol] 99 mmol/L 97 - 10 5 mmol/L [facility] CO2 [Moles/Vol] 26 mmol/L 22 - 30 mmol/L [facility] Creatinine [Mass/Vol] 0.94 mg/dL 0.73 - 1.22 mg/dL [facility] Estimated Glomerular Filtration Rate 83 mL/min/1.73m >=60 mL/min/1.73m [facility] Glucose [Mass/Vol] 119 mg/dL High 74 - 99 mg/dL [facility] Potassium [Moles/Vol] 4.1 mmol/L 3.7 - 5.1 mmol/L [facility] Protein [Mass/Vol] 6.7 g/dL 6.3 - 8.0 g/dL [facility] Sodium [Moles/Vol] 136 mmol/L 136 - 144 mmol/L [facility] Urea nitrogen [Mass/Vol] 20 mg/dL 9 - 24 mg/dL [facility] CBC W Auto Differential pane l (Bld)on 09-17-2022 Basophils (Bld) [#/Vol] <0.11 k/uL [facility] Basophils/100 WBC (Bld) 0.2 % [facility] Differential cell count method Nom (Bld) Auto [facility] Eosinophils (Bld) [#/Vol] 0.04 10*3/uL <0.46 k/uL [facility] Eosinophils/100 WBC (Bld) 0.8 % [facility] Erythrocyte distribution width (RBC) [Ratio] 13.1 % 11.5 - 15.0 % [facility] Hematocrit (Bld) [Volume fraction] 39.8 % 39.0 - 51.0 % [facility] Hemoglobin (Bld) [Mass/Vol] 13.4 g/dL 13.0 - 17.0 g/dL [facility] Immature granulocytes (Bld) [#/Vol] <0.10 k/uL [facility] Immature granulocytes/100 WBC (Bld) 0.4 % [facility] Lymphocytes (Bld) [#/Vol] 0.40 10*3/uL Low 1.00 - 4.00 k/uL [facility] Lymphocytes/100 WBC (Bld) 7.8 % [facility] MCH (RBC) [Entitic mass] 30.3 pg 26.0 - 34.0 pg [facility] MCHC (RBC) [Mass/Vol] 33.7 g/dL 30.5 - 36.0 g/dL [facility] MCV (RBC) [Entitic vol] 90.0 fL 80.0 - 100.0 fL [facility] Monocytes (Bld) [#/Vol] 0.34 10*3/uL <0.87 k/uL [facility] Monocytes/100 WBC (Bld) 6.6 % [facility] Neutrophils (Bld) [#/Vol] 4.31 10*3/uL 1.45 - 7.50 k/uL [facility] Neutrophils/100 WBC (Bld) 84.2 % [facility] Nucleated RBC (Bld) [#/Vol] <0.01 k/uL [facility] Nucleated RBC/100 WBC (Bld) [Ratio] 0.0 /100 WBC [facility] Platelet mean volume (Bld) [Entitic vol] 9.4 fL 9.0 - 12.7 fL [facility] Platelets (Bld) [#/Vol] 198 10*3/uL 150 - 400 k/uL [facility] RBC (Bld) [#/Vol] 4.42 10*6/uL 4.20 - 6.0 0 m/uL [facility] WBC (Bld) [#/Vol] 5.12 10*3/uL 3.70 - 11. 00 k/uL [facility] Comprehensive metabolic 2000 panelon 09-17-2022 Albumin [Mass/Vol] 4.4 g/dL 3.9 - 4.9 g/dL [facility] ALP [Catalytic activity/Vol] 70 U/L 38 - 113 U/L [facility] ALT [Catalytic activity/Vol] 22 U/L 10 - 54 U/L [facility] Anion gap [Moles/Vol] 8 mmol/L Low 9 - 18 mmol/L [facility] AST [Catalytic activity/Vol] 15 U/L 14 - 40 U/L [facility] Bilirubin [Mass/Vol] 0.4 mg/dL 0.2 - 1 .3 mg/dL [facility] Calcium [Mass/Vol] 9.8 mg/dL 8.5 - 10. 2 mg/dL [facility] Chloride [Moles/Vol] 99 mmol/L 97 - 10 5 mmol/L [facility] CO2 [Moles/Vol] 28 mmol/L 22 - 30 mmol/L [facility] Creatinine [Mass/Vol] 0.83 mg/dL 0.73 - 1.22 mg/dL [facility] Estimated Glomerular Filtration Rate 90 mL/min/1.73m >=60 mL/min/1.73m [facility] Glucose [Mass/Vol] 125 mg/dL High 74 - 99 mg/dL [facility] Potassium [Moles/Vol] 4.1 mmol/L 3.7 - 5.1 mmol/L [facility] Protein [Mass/Vol] 6.8 g/dL 6.3 - 8.0 g/dL [facility] Sodium [Moles/Vol] 135 mmol/L Low 136 - 144 mmol/L [facility] Urea nitrogen [Mass/Vol] 28 mg/dL High 9 - 24 mg/dL [facility] CBC W Auto Differential pane l (Bld)on 08-23-2022 Basophils (Bld) [#/Vol] 0.05 10*3/uL <0.11 k/uL [facility] Basophils/100 WBC (Bld) 0.8 % [facility] Differential cell count method Nom (Bld) Auto [facility] Eosinophils (Bld) [#/Vol] 0.05 10*3/uL <0.46 k/uL [facility] Eosinophils/100 WBC (Bld) 0.8 % [facility] Erythrocyte distribution width (RBC) [Ratio] 13.2 % 11.5 - 15.0 % [facility] Hematocrit (Bld) [Volume fraction] 43.8 % 39.0 - 51.0 % [facility] Hemoglobin (Bld) [Mass/Vol] 14.7 g/dL 13.0 - 17.0 g/dL [facility] Immature granulocytes (Bld) [#/Vol] <0.10 k/uL [facility] Immature granulocytes/100 WBC (Bld) 0.3 % [facility] Lymphocytes (Bld) [#/Vol] 1.55 10*3/uL 1.00 - 4.00 k/uL [facility] Lymphocytes/100 WBC (Bld) 25.7 % [facility] MCH (RBC) [Entitic mass] 30.6 pg 26.0 - 34.0 pg [facility] MCHC (RBC) [Mass/Vol] 33.6 g/dL 30.5 - 36.0 g/dL [facility] MCV (RBC) [Entitic vol] 91.3 fL 80.0 - 100.0 fL [facility] Monocytes (Bld) [#/Vol] 0.51 10*3/uL <0.87 k/uL [facility] Monocytes/100 WBC (Bld) 8.5 % [facility] Neutrophils (Bld) [#/Vol] 3.85 10*3/uL 1.45 - 7.50 k/uL [facility] Neutrophils/100 WBC (Bld) 63.9 % [facility] Nucleated RBC (Bld) [#/Vol] <0.01 k/uL [facility] Nucleated RBC/100 WBC (Bld) [Ratio] 0.0 /100 WBC [facility] Platelet mean volume (Bld) [Entitic vol] 9.4 fL 9.0 - 12.7 fL [facility] Platelets (Bld) [#/Vol] 340 10*3/uL 150 - 400 k/uL [facility] RBC (Bld) [#/Vol] 4.80 10*6/uL 4.20 - 6.0 0 m/uL [facility] WBC (Bld) [#/Vol] 6.03 10*3/uL 3.70 - 11. 00 k/uL [facility] Comprehensive metabolic 2000 panelon 08-23-2022 Albumin [Mass/Vol] 4.6 g/dL 3.9 - 4.9 g/dL [facility] ALP [Catalytic activity/Vol] 66 U/L 38 - 113 U/L [facility] ALT [Catalytic activity/Vol] 16 U/L 10 - 54 U/L [facility] Anion gap [Moles/Vol] 8 mmol/L Low 9 - 18 mmol/L [facility] AST [Catalytic activity/Vol] 19 U/L 14 - 40 U/L [facility] Bilirubin [Mass/Vol] 0.5 mg/dL 0.2 - 1 .3 mg/dL [facility] Calcium [Mass/Vol] 10.0 mg/dL 8.5 - 10. 2 mg/dL [facility] Chloride [Moles/Vol] 102 mmol/L 97 - 10 5 mmol/L [facility] CO2 [Moles/Vol] 30 mmol/L 22 - 30 mmol/L [facility] Creatinine [Mass/Vol] 0.97 mg/dL 0.73 - 1.22 mg/dL [facility] Estimated Glomerular Filtration Rate 80 mL/min/1.73m >=60 mL/min/1.73m [facility] Glucose [Mass/Vol] 101 mg/dL High 74 - 99 mg/dL [facility] Potassium [Moles/Vol] 4.5 mmol/L 3.7 - 5.1 mmol/L [facility] Protein [Mass/Vol] 7.5 g/dL 6.3 - 8.0 g/dL [facility] Sodium [Moles/Vol] 140 mmol/L 136 - 144 mmol/L [facility] Urea nitrogen [Mass/Vol] 18 mg/dL 9 - 24 mg/dL [facility] POINT OF CARE GLUCOSEon 07-09 Glucose [Mass/Vol] 149 mg/dL Critically high 74-106 [facility] Comment on above: Performed By: #### P OCGLUC #### [facility] [address] [address] [address] 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 Correction, due 07/18/2025. Normal [facility] CBC AUTO DIFFon 07-27-2022 BASO # 0.0 103/ul Normal 0.0-0.1 [facility] Comment on above: Performed By: #### C BC #### [facility] [address] [place] [address] Dr. Mikayla Galan Basophils/100 WBC (Bld) 0.4 % Normal 0.2-2.0 [facility] Comment on above: Performed By: #### C BC #### [facility] [address] [place] [address] Dr. Mikayla Galan EO # 0.1 103/ul Normal 0.0-0.7 [facility] Comment on above: Performed By: #### C BC #### [facility] [address] [place] [address] Dr. Mikayla Galan Eosinophils/100 WBC (Bld) 1.5 % Normal 0.9-7.0 [facility] Comment on above: Performed By: #### C BC #### [facility] [address] [place] [address] Dr. Mikayla Galan Erythrocyte distribution width (RBC) [Ratio] 13.2 % Normal 11.0-15.0 [facility] Comment on above: Performed By: #### C BC #### [facility] [address] [place] [address] Dr. Mikayla Galan Hematocrit (Bld) [Volume fraction] 41.7 % Critically low 42.0-54.0 [facility] Comment on above: Performed By: #### C BC #### [facility] [address] [place] [address] Dr. Mikayla Galan Hemoglobin (Bld) [Mass/Vol] 13.9 g/dL Critically low 14.0-18.0 [facility] Comment on above: Performed By: #### C BC #### [facility] [address] [place] [address] Dr. Mikayla Galan IG # 0.02 10e3/ul Normal 0.00-0.03 [facility] Comment on above: Performed By: #### C BC #### [facility] [address] [place] [address] Dr. Mikayla Galan IG % 0.4 % Normal 0.0-0.5 [facility] Comment on above: Performed By: #### C BC #### [facility] [address] [place] [address] Dr. Mikayla Galan LYMPH # 1.1 103/ul Critically low 1.2-3.[address] [facility] Comment on above: Performed By: #### C BC #### [facility] [address] [place] [address] Dr. Mikayla Galan Lymphocytes/100 WBC (Bld) 24.7 % Normal 20.5-60.0 [facility] Comment on above: Performed By: #### C BC #### [facility] [address] [place] [address] Dr. Mikayla Galan MANUAL DIFF REQ NO Normal [facility] Comment on above: Performed By: #### C BC #### [facility] [address] [place] [address] Dr. Mikayla Galan MCH (RBC) [Entitic mass] 30.5 pg Normal 25.9-34.0 [facility] Comment on above: Performed By: #### C BC #### [facility] [address] [place] [address] Dr. Mikayla Galan MCHC (RBC) [Mass/Vol] 33.3 g/dL Normal 29.9-35.2 [facility] Comment on above: Performed By: #### C BC #### [facility] [address] [place] [address] Dr. Mikayla Galan MCV (RBC) [Entitic vol] 91.4 fL Normal 80.0-94.0 [facility] Comment on above: Performed By: #### C BC #### [facility] [address] [place] [address] Dr. Mikayla Galan MONO # 0.4 103/ul Normal 0.3-0.8 [facility] Comment on above: Performed By: #### C BC #### [facility] [address] [address] [address] Mikayla Galan Monocytes/100 WBC (Bld) 8.4 % Normal 1.7-12.0 [facility] Comment on above: Performed By: #### C BC #### [facility] [address] [place] [address] Dr. Mikayla Galan NEUT # 2.9 103/ul Normal 1.4-6.5 [facility] Comment on above: Performed By: #### C BC #### [facility] [address] [place] [address] Dr. Mikayla Galan Neutrophils/100 WBC (Bld) 64.6 % Normal 43.0-75.0 [facility] Comment on above: Performed By: #### C BC #### [facility] [address] [place] [address] Dr. Mikayla Galan Platelet mean volume (Bld) [Entitic vol] 9.5 fL Normal 9.5-13.5 [facility] Comment on above: Performed By: #### C BC #### [facility] [address] [place] [address] Dr. Mikayla Galan PLT 293 103/ul Normal 150-450 [facility] Comment on above: Performed By: #### C BC #### [facility] [address] [place] [address] Dr. Mikayla Galan RBC 4.56 106/ul Critically low 4.70-6.[address] [facility] Comment on above: Performed By: #### C BC #### [facility] [address] [place] [address] Dr. Mikayla Galan WBC 4.5 103/ul Normal 4.0-11.0 [facility] Comment on above: Performed By: #### C #### [facility] [address] [address] NECK ST W [...] CHAU JUNG Date: 2022-07-27 13:04 Normal [facility] Covid-19 PCR (CVDTBH)on 07-09 SARS-CoV-2 (COVID-19) RNA IRIS+probe Ql (Unsp spec) Not detected Normal NOT DETECTED [facility] Comment on above: Result Comment: This test is not yet approved or cleared by the [place] FDA. When there are no FDA-approved or cleared tests available, and other criteria are met, FDA can make tests available under an emergency access mechanism called an Emergency Use Authorization (EUA). The EUA for this test is supported by the [place] of Health and Human Service's (HHS's) declaration [...] SARS-CoV-2. Performed By: #### P OCGLUC #### [facility] [address] [place] [address] Dr. Mikayla Galan PROF CHEM 8 (BAS METB)on Anion gap [Moles/Vol] 10.2 mmol/L Normal [facility] Comment on above: Performed By: #### B MP #### [facility] [address] [place] [address] Dr. Mikayla Galan Calcium [Mass/Vol] 9.2 mg/dL Normal 8.5-10.1 [facility] Comment on above: Performed By: #### B MP #### [facility] [address] [place] [address] Dr. Mikayla Galan Chloride [Moles/Vol] 103 mmol/L Normal 98-107 [facility] Comment on above: Performed By: #### B MP #### [facility] [address] [place] [address] Dr. Mikayla Galan CO2 [Moles/Vol] 31.3 mmol/L Normal 21.0-32.[address] [facility] Comment on above: Performed By: #### B MP #### [facility] [address] [place] [address] Dr. Mikayla Galan Creatinine [Mass/Vol] 0.98 mg/dL Normal 0.70-1.30 [facility] Comment on above: Performed By: #### B MP #### [facility] [address] [address] [address] Mikayla Galan EGFR-AF [place]AST [place] >60 Normal >=[address] [facility] Comment on above: Performed By: #### B MP #### [facility] [address] [address] [address] Mikayla Galan EGFR-NON AF [place] >60 Normal >=60 [facility] Comment on above: Performed By: #### B MP #### [facility] [address] [address] [address] Mikayla Galan Glucose [Mass/Vol] 133 mg/dL Critically high 74-106 [facility] Comment on above: Performed By: #### B MP #### [facility] [address] [address] [address] Mikayla Galan Potassium [Moles/Vol] 4.5 mmol/L Normal 3.5-5.1 [facility] Comment on above: Performed By: #### B MP #### [facility] [address] [address] [address] Mikayla Galan Sodium [Moles/Vol] 140 mmol/L Normal 136-145 [facility] Comment on above: Performed By: #### B MP #### [facility] [address] [address] [address] Mikayla Galan Urea nitrogen [Mass/Vol] 21.0 mg/dL Critically high 7.0-18.0 [facility] Comment on above: Performed By: #### B MP #### [facility] [address] [address] [address] Mikayla Galan Urea nitrogen/Creatinine [Mass ratio] 21.4 mg/mg Normal [facility] Comment on above: Performed By: #### B MP #### [facility] [address] [address] [address] Mikayla Galan PROTIMEon 07-27-2022 INR Coag (PPP) [Relative time] 1.04 {INR} Normal [facility] Comment on above: Performed By: #### P T, PTT #### [facility] [address] [place] [address] Dr. Mikayla Galan INR GUIDELINES SEE BELOW Normal [facility] Comment on above: Result Comment: VANESSA RED INR: 2.0 - 3.0 CONDITIONS NOT LISTED BELOW 2.5 - 3.5 FOR PROSTHETIC HEART VALVE REPLACEMENT 2.5 - 3.5 RECURRENT THROMBOSIS Performed By: #### P T, PTT #### [facility] [address] [place] [address] Dr. Mikayla Galan PT Coag (PPP) [Time] 11.0 s Normal 9.0-11.6 [facility] Comment on above: Performed By: #### P T, PTT #### [facility] [address] [place] [address] Dr. Mikayla Galan PTTon 07-27-2022 aPTT Coag (Bld) [Time] 28.6 s Normal 22.3-36.2 [facility] Comment on above: Performed By: #### P OCGLUC #### [facility] [address] [place] [address] Dr. Mikayla Galan Pathology Noteon 07-20-2022 Pathology Note [id number] .00CD:127 Normal [facility] Outside Colonoscopyon 2022 Outside Colonoscopy [id number] .00CD:127 Normal [facility] POINT OF CARE GLUCOSEon 07-08 Glucose [Mass/Vol] 94 mg/dL Normal 74-106 [facility] Comment on above: Performed By: #### P OCGLUC #### [facility] [address] [place] [address] Dr. Mikayla Galan Lab Reportson 07-12-2022 Lab Reports [id number] .[id number]:127 Normal [facility] Covid-19 PCR (CVDTBH)on SARS-CoV-2 (COVID-19) RNA IRIS+probe Ql (Unsp spec) Not detected Normal NOT DETECTED [facility] Comment on above: Result Comment: This test is not yet approved or cleared by the [place] FDA. When there are no FDA-approved or cleared tests available, and other criteria are met, FDA can make tests available under an emergency access mechanism called an Emergency Use Authorization (EUA). The EUA for this test is supported by the [place] of Health and Human Service's (HHS's) declaration [...] SARS-CoV-2. Performed By: #### P OCGLUC #### [facility] [address] [place] [address] Dr. Mikayla Galan Consent for Procedure/Surger yon 06-15-2022 Consent for Procedure/Surgery [id number] .00CD:127 Normal [facility] US THYROIDon 06-11-2022 US THYROID EXAMINATION: US [...] by: QUANG JOHNSON Date: 2022-06-11 07:17 Normal [facility] Provider Letteron 05-15-2022 Provider Letter May 15, 2022 MANISH ROOT [address] [place] [id number] MANISH ROOT 1945 Dear Manish , We have been trying to reach you with no success. It is important that you return our call regarding your referral from Dr. Nelson upon receiving this letter. Also, at the time of your call, please provide us with your current information. Thank you for your prompt attention to this matter. Sincerely, General Surgery [phone] Normal [facility] CBC AUTO DIFFon 02-27-2022 BASO # 0.0 103/ul Normal 0.0-0.1 [facility] Comment on above: Performed By: #### C BC #### [facility] [address] [place] [address] Dr. Mikayla Galan Basophils/100 WBC (Bld) 0.6 % Normal 0.2-2.0 [facility] Comment on above: Performed By: #### C BC #### [facility] [address] [place] [address] Dr. Mikayla Galan EO # 0.1 103/ul Normal 0.0-0.7 [facility] Comment on above: Performed By: #### C BC #### [facility] [address] [place] [address] Dr. Mikayla Galan Eosinophils/100 WBC (Bld) 1.4 % Normal 0.9-7.0 [facility] Comment on above: Performed By: #### C BC #### [facility] [address] [place] [address] Dr. Mikayla Galan Erythrocyte distribution width (RBC) [Ratio] 12.6 % Normal 11.0-15.0 [facility] Comment on above: Performed By: #### C BC #### [facility] [address] [place] [address] Dr. Mikayla Galan Hematocrit (Bld) [Volume fraction] 41.8 % Critically low 42.0-54.0 [facility] Comment on above: Performed By: #### C BC #### [facility] [address] [place] [address] Dr. Mikayla Galan Hemoglobin (Bld) [Mass/Vol] 13.9 g/dL Critically low 14.0-18.0 [facility] Comment on above: Performed By: #### C BC #### [facility] [address] [place] [address] Dr. Mikayla Galan IG # 0.03 10e3/ul Normal 0.00-0.03 [facility] Comment on above: Performed By: #### C BC #### [facility] [address] [place] [address] Dr. Mikayla Galan IG % 0.6 % Critically high 0.0-0.5 [facility] Comment on above: Performed By: #### C BC #### [facility] [address] [place] [address] Dr. Mikayla Galan LYMPH # 1.0 103/ul Critically low 1.2-3.8 [facility] Comment on above: Performed By: #### C BC #### [facility] [address] [place] [address] Dr. Mikayla Galan Lymphocytes/100 WBC (Bld) 19.9 % Critically low 20.5-60.0 [facility] Comment on above: Performed By: #### C BC #### [facility] [address] [place] [address] Dr. Mikayla Galan MANUAL DIFF REQ NO Normal [facility] Comment on above: Performed By: #### C BC #### [facility] [address] [place] [address] Dr. Mikayla Galan MCH (RBC) [Entitic mass] 31.0 pg Normal 25.9-34.0 [facility] Comment on above: Performed By: #### C BC #### [facility] [address] [place] [address] Dr. Mikayla Galan MCHC (RBC) [Mass/Vol] 33.3 g/dL Normal 29.9-35.2 [facility] Comment on above: Performed By: #### C BC #### [facility] [address] [place] [address] Dr. Mikayla Galan MCV (RBC) [Entitic vol] 93.3 fL Normal 80.0-94.0 [facility] Comment on above: Performed By: #### C BC #### [facility] [address] [address] [address] Mikayla Galan MONO # 0.5 103/ul Normal 0.3-0.8 [facility] Comment on above: Performed By: #### C BC #### [facility] [address] [address] [address] Mikayla Galan Monocytes/100 WBC (Bld) 8.9 % Normal 1.7-12.0 [facility] Comment on above: Performed By: #### C BC #### [facility] [address] [place] [address] Dr. Mikayla Galan NEUT # 3.5 103/ul Normal 1.4-6.5 [facility] Comment on above: Performed By: #### C BC #### [facility] [address] [place] [address] Dr. Mikayla Galan Neutrophils/100 WBC (Bld) 68.6 % Normal 43.0-75.0 [facility] Comment on above: Performed By: #### C BC #### [facility] [address] [place] [address] Dr. Mikayla Galan Platelet mean volume (Bld) [Entitic vol] 9.6 fL Normal 9.5-13.5 [facility] Comment on above: Performed By: #### C BC #### [facility] [address] [place] [address] Dr. Mikayla Galan PLT 280 103/ul Normal 150-450 [facility] Comment on above: Performed By: #### C BC #### [facility] [address] [place] [address] Dr. Mikayla Galan RBC 4.48 106/ul Critically low 4.70-6.[address] [facility] Comment on above: Performed By: #### C BC #### [facility] [address] [place] [address] Dr. Mikayla Galan WBC 5.1 103/ul Normal 4.0-11.0 [facility] Comment on above: Performed By: #### C BC #### [facility] [address] [place] [address] Dr. Mikayla Galan GLYCOHEMOGLOBIN A1Con 2021 ADA RECOMMENDATION SEE BELOW Normal [facility] Comment on above: Result Comment: ADA RECOMMENDED LIMIT 4.0 - 6.0 ADA THERAPEUTIC TARGET < 7.0 ACTION SUGGESTED > 7.0 Performed By: #### A 1C #### [facility] [address] [address] [address] Mikayla Galan Glucose [Mass/Vol] 183 mg/dL Normal [facility] Comment on above: Performed By: #### A 1C #### [facility] [address] [address] [address] Mikayla Galan HbA1c (Bld) [Mass fraction] 8.0 % Critically high 4.5-6.2 [facility] Comment on above: Performed By: #### A 1C #### [facility] [address] [place] [address] Dr. Mikayla Galan PROF 14(COMP METB)on 022 Albumin [Mass/Vol] 3.8 g/dL Normal 3.4-5.0 [facility] Comment on above: Performed By: #### C MP #### [facility] [address] [place] [address] Dr. Mikayla Galan Albumin/Globulin [Mass ratio] 1.2 {ratio} Normal [facility] Comment on above: Performed By: #### C MP #### [facility] [address] [place] [address] Dr. Mikayla Galan ALP [Catalytic activity/Vol] 111 U/L Normal 46-116 [facility] Comment on above: Performed By: #### C MP #### [facility] [address] [place] [address] Dr. Mikayla Galan ALT [Catalytic activity/Vol] 50 U/L Normal 16-63 [facility] Comment on above: Performed By: #### C MP #### [facility] [address] [place] [address] Dr. Mikayla Galan Anion gap [Moles/Vol] 11.5 mmol/L Normal [facility] Comment on above: Performed By: #### C MP #### [facility] [address] [address] [address] Mikayla Galan AST [Catalytic activity/Vol] 27 U/L Normal 15-37 [facility] Comment on above: Performed By: #### C MP #### [facility] [address] [address] [address] Mikayla Galan Bilirubin [Mass/Vol] 0.5 mg/dL Normal 0.2-1.0 [facility] Comment on above: Performed By: #### C MP #### [facility] [address] [place] [address] Dr. Mikayla Galan Calcium [Mass/Vol] 9.0 mg/dL Normal 8.5-10.1 [facility] Comment on above: Performed By: #### C MP #### [facility] [address] [place] [address] Dr. Mikayla Galan Chloride [Moles/Vol] 101 mmol/L Normal 98-107 [facility] Comment on above: Performed By: #### C MP #### [facility] [address] [place] [address] Dr. Mikayla Galan CO2 [Moles/Vol] 27.7 mmol/L Normal 21.0-32.[address] [facility] Comment on above: Performed By: #### C MP #### [facility] [address] [place] [address] Dr. Mikayla Galan Creatinine [Mass/Vol] 1.17 mg/dL Normal 0.70-1.30 [facility] Comment on above: Performed By: #### C MP #### [facility] [address] [place] [address] Dr. Mikayla Galan EGFR-AF [place] >60 Normal >=60 [facility] Comment on above: Performed By: #### C MP #### [facility] [address] [place] [address] Dr. Mikayla Galan EGFR-NON AF [place] =60 Normal >=60 [facility] Comment on above: Performed By: #### C MP #### [facility] [address] [place] [address] Dr. Mikayla Galan Globulin (S) [Mass/Vol] 3.3 g/dL Normal [facility] Comment on above: Performed By: #### C MP #### [facility] [address] [address] [address] Mikayla Galan Glucose [Mass/Vol] 233 mg/dL Critically high 74-106 [facility] Comment on above: Performed By: #### C MP #### [facility] [address] [address] [address] Mikayla Galan Potassium [Moles/Vol] 4.2 mmol/L Normal 3.5-5.1 [facility] Comment on above: Performed By: #### C MP #### [facility] [address] [address] [address] Mikayla Galan Protein [Mass/Vol] 7.1 g/dL Normal 6.4-8.2 [facility] Comment on above: Performed By: #### C MP #### [facility] [address] [address] [address] Mikayla Galan Sodium [Moles/Vol] 136 mmol/L Normal 136-145 [facility] Comment on above: Performed By: #### C MP #### [facility] [address] [place] [address] Dr. Mikayla Galan Urea nitrogen [Mass/Vol] 15.0 mg/dL Normal 7.0-18.0 [facility] Comment on above: Performed By: #### C MP #### [facility] [address] [address] [address] Mikayla Galan Urea nitrogen/Creatinine [Mass ratio] 12.8 mg/mg Normal [facility] Comment on above: Performed By: #### C MP #### [facility] [address] [place], [place] [id number] Dr. Mikayla Galan Physician Referralon 022 Physician Referral [id number]:127 Normal [facility] Vital Signs Date Time Vital Sign Value Performing Clinician Facility 01-14-2024 13:29-0400 Body height 167.64 cm [facility] 01-14-2024 13:29-0400 Body mass index (BMI) [Ratio] 30.5 kg/m2 [facility] 01-14-2024 13:29-0400 Body temperature 97.4 [degF] [facility] 01-14-2024 13:29-0400 Body weight 85.89 kg [facility] 01-14-2024 13:29-0400 Diastolic blood pressure 70 mm[Hg] [facility] 01-14-2024 13:29-0400 Heart rate 66 /min [facility] 01-14-2024 13:29-0400 Respiratory rate 18 /min [facility] 01-14-2024 13:29-0400 SaO2% (BldA) [Mass fraction] 92 % [facility] 01-14-2024 13:29-0400 Systolic blood pressure 112 mm[Hg] [facility] 11-06-2023 09:51-0400 Body mass index (BMI) [Ratio] 31.73 kg/m2 BARRON Feliz MD Work Phone: [facility] 11-06-2023 09:51-0400 Body temperature 97.11 [degF] BARRON Feliz MD Work Phone: [facility] 11-06-2023 09:51-0400 Body weight 88.4 kg BARRON Feliz MD Work Phone: [facility] 11-06-2023 09:51-0400 Diastolic blood pressure 77 mm[Hg] BARRON Feliz MD Work Phone: [facility] 11-06-2023 09:51-0400 Heart rate 58 /min BARRON Feliz MD Work Phone: [facility] 11-06-2023 09:51-0400 Respiratory rate 16 /min BARRON Feliz MD Work Phone: [facility] 11-06-2023 09:51-0400 SaO2% (BldA) [Mass fraction] 99 % BARRON Feliz MD Work Phone: [facility] 11-06-2023 09:51-0400 Systolic blood pressure 163 mm[Hg] BARRON Feliz MD Work Phone: [facility] 10-23-2023 10:56-0400 Body height 166.9 cm John England MD Work Phone: [facility] 10-23-2023 10:56-0400 Body temperature 97.81 [degF] John England MD Work Phone: [facility] 10-23-2023 10:56-0400 Body weight 87.5 kg John England MD Work Phone: [facility] 10-23-2023 10:56-0400 Diastolic blood pressure 70 mm[Hg] John England MD Work Phone: [facility] 10-23-2023 10:56-0400 Heart rate 54 /min John England MD Work Phone: [facility] 10-23-2023 10:56-0400 Respiratory rate 16 /min John England MD Work Phone: [facility] 10-23-2023 10:56-0400 SaO2% (BldA) [Mass fraction] 98 % John England MD Work Phone: [facility] 10-23-2023 10:56-0400 Systolic blood pressure 144 mm[Hg] John England MD Work Phone: [facility] 05-08-2023 11:14-0400 Body temperature 97.11 [degF] BARRON Feliz MD Work Phone: [facility] 05-08-2023 11:14-0400 Body weight 80.2 kg BARRON Feliz MD Work Phone: [facility] 05-08-2023 11:14-0400 Diastolic blood pressure 104 mm[Hg] BARRON Feliz MD Work Phone: [facility] 05-08-2023 11:14-0400 Heart rate 58 /min BARRON Feliz MD Work Phone: [facility] 05-08-2023 11:14-0400 Respiratory rate 16 /min BARRON Feliz MD Work Phone: [facility] 05-08-2023 11:14-0400 SaO2% (BldA) [Mass fraction] 98 % BARRON Feliz MD Work Phone: [facility] 05-08-2023 11:14-0400 Systolic blood pressure 168 mm[Hg] BARRON Feliz MD Work Phone: [facility] 03-20-2023 12:55-0400 Body height 166.9 cm John England MD Work Phone: [facility] 03-20-2023 12:55-0400 Body temperature 97.9 [degF] John England MD Work Phone: [facility] 03-20-2023 12:55-0400 Body weight 79.92 kg John England MD Work Phone: [facility] 03-20-2023 12:55-0400 Diastolic blood pressure 65 mm[Hg] John England MD Work Phone: [facility] 03-20-2023 12:55-0400 Heart rate 59 /min John England MD Work Phone: [facility] 03-20-2023 12:55-0400 Respiratory rate 16 /min John England MD Work Phone: [facility] 03-20-2023 12:55-0400 SaO2% (BldA) [Mass fraction] 98 % John England MD Work Phone: [facility] 03-20-2023 12:55-0400 Systolic blood pressure 139 mm[Hg] John England MD Work Phone: [facility] 02-06-2023 11:59-0400 Body temperature 97.3 [degF] BARRON Feliz MD Work Phone: [facility] 02-06-2023 11:59-0400 Body weight 80.74 kg BARRON Feliz MD Work Phone: [facility] 02-06-2023 11:59-0400 Diastolic blood pressure 67 mm[Hg] BARRON Feliz MD Work Phone: [facility] 02-06-2023 11:59-0400 Heart rate 56 /min BARRON Feliz MD Work Phone: [facility] 02-06-2023 11:59-0400 Respiratory rate 16 /min BARRON Feliz MD Work Phone: [facility] 02-06-2023 11:59-0400 Systolic blood pressure 142 mm[Hg] BARRON Feliz MD Work Phone: [facility] 02-06-2023 11:29-0400 Body height 166.9 cm John England MD Work Phone: [facility] 02-06-2023 11:29-0400 Body temperature 97.3 [degF] John England MD Work Phone: [facility] 02-06-2023 11:29-0400 Body weight 80.92 kg John England MD Work Phone: [facility] 02-06-2023 11:29-0400 Diastolic blood pressure 67 mm[Hg] John England MD Work Phone: [facility] 02-06-2023 11:29-0400 Heart rate 56 /min John England MD Work Phone: [facility] 02-06-2023 11:29-0400 Respiratory rate 16 /min John England MD Work Phone: [facility] 02-06-2023 11:29-0400 SaO2% (BldA) [Mass fraction] 98 % John England MD Work Phone: [facility] 02-06-2023 11:29-0400 Systolic blood pressure 142 mm[Hg] John England MD Work Phone: [facility] 11-28-2022 14:37-0400 Body temperature 96.69 [degF] BARRON Feliz MD Work Phone: [facility] 11-28-2022 14:37-0400 Body weight 78.47 kg BARRON Feliz MD Work Phone: [facility] 11-28-2022 14:37-0400 Diastolic blood pressure 69 mm[Hg] BARRON Feliz MD Work Phone: [facility] 11-28-2022 14:37-0400 Heart rate 66 /min BARRON Feliz MD Work Phone: [facility] 11-28-2022 14:37-0400 Respiratory rate 18 /min BARRON Feliz MD Work Phone: [facility] 11-28-2022 14:37-0400 SaO2% (BldA) [Mass fraction] 97 % BARRON Feliz MD Work Phone: [facility] 11-28-2022 14:37-0400 Systolic blood pressure 165 mm[Hg] BARRON Feliz MD Work Phone: [facility] 11-07-2022 09:21-0400 Body height 166.9 cm John England MD Work Phone: [facility] 11-07-2022 09:21-0400 Body temperature 97.5 [degF] John England MD Work Phone: [facility] 11-07-2022 09:21-0400 Body weight 78.11 kg John England MD Work Phone: [facility] 11-07-2022 09:21-0400 Diastolic blood pressure 66 mm[Hg] John England MD Work Phone: [facility] 11-07-2022 09:21-0400 Heart rate 58 /min John England MD Work Phone: [facility] 11-07-2022 09:21-0400 Respiratory rate 16 /min John England MD Work Phone: [facility] 11-07-2022 09:21-0400 SaO2% (BldA) [Mass fraction] 100 % John England MD Work Phone: [facility] 11-07-2022 09:21-0400 Systolic blood pressure 129 mm[Hg] John England MD Work Phone: [facility] 10-31-2022 14:05-0400 Body height 166.9 cm Maryam Hodgson APRN.LEAD CONSULTANT Work Phone: [facility] 10-31-2022 14:05-0400 Body temperature 97.5 [degF] Maryam Hodgson APRN.LEAD CONSULTANT Work Phone: [facility] 10-31-2022 14:05-0400 Body weight 78.2 kg Maryam Hodgson APRN.LEAD CONSULTANT Work Phone: [facility] 10-31-2022 14:05-0400 Diastolic blood pressure 58 mm[Hg] Maryam Hodgson APRN.LEAD CONSULTANT Work Phone: [facility] 10-31-2022 14:05-0400 Heart rate 67 /min Maryam Hodgson APRN.LEAD CONSULTANT Work Phone: [facility] 10-31-2022 14:05-0400 Respiratory rate 16 /min Maryam Hodgson APRN.LEAD CONSULTANT Work Phone: [facility] 10-31-2022 14:05-0400 SaO2% (BldA) [Mass fraction] 98 % Maryam Hodgson APRN.LEAD CONSULTANT Work Phone: [facility] 10-31-2022 14:05-0400 Systolic blood pressure 120 mm[Hg] Maryam Hodgson APRN.LEAD CONSULTANT Work Phone: [facility] 10-25-2022 09:51-0400 Body height 166.9 cm Maryam Hodgson TELEPHONE OPERATOR RECEPTIONIST.LEAD CONSULTANT Work Phone: [facility] 10-25-2022 09:51-0400 Body temperature 97 [degF] Maryam Hodgson TELEPHONE OPERATOR RECEPTIONIST.LEAD CONSULTANT Work Phone: [facility] 10-25-2022 09:51-0400 Body weight 79.29 kg Maryam Hodgson TELEPHONE OPERATOR RECEPTIONIST.LEAD CONSULTANT Work Phone: [facility] 10-25-2022 09:51-0400 Diastolic blood pressure 64 mm[Hg] Maryam Hodgson TELEPHONE OPERATOR RECEPTIONIST.LEAD CONSULTANT Work Phone: [facility] 10-25-2022 09:51-0400 Heart rate 63 /min Maryam Hodgson TELEPHONE OPERATOR RECEPTIONIST.LEAD CONSULTANT Work Phone: [facility] 10-25-2022 09:51-0400 Respiratory rate 16 /min Maryam Hodgson TELEPHONE OPERATOR RECEPTIONIST.LEAD CONSULTANT Work Phone: [facility] 10-25-2022 09:51-0400 SaO2% (BldA) [Mass fraction] 99 % Maryam Hodgson TELEPHONE OPERATOR RECEPTIONIST.LEAD CONSULTANT Work Phone: [facility] 10-25-2022 09:51-0400 Systolic blood pressure 135 mm[Hg] Maryam Hogdson TELEPHONE OPERATOR RECEPTIONIST.LEAD CONSULTANT Work Phone: [facility] 10-19-2022 09:21-0400 Body height 166.9 cm John England MD Work Phone: [facility] 10-19-2022 09:21-0400 Body temperature 97.11 [degF] John England MD Work Phone: [facility] 10-19-2022 09:21-0400 Body weight 78.74 kg John England MD Work Phone: [facility] 10-19-2022 09:21-0400 Diastolic blood pressure 64 mm[Hg] John England MD Work Phone: [facility] 10-19-2022 09:21-0400 Heart rate 56 /min John England MD Work Phone: [facility] 10-19-2022 09:21-0400 Respiratory rate 16 /min John England MD Work Phone: [facility] 10-19-2022 09:21-0400 SaO2% (BldA) [Mass fraction] 98 % John England MD Work Phone: [facility] 10-19-2022 09:21-0400 Systolic blood pressure 129 mm[Hg] John England MD Work Phone: [facility] 10-15-2022 10:40-0400 Body temperature 97.39 [degF] BARRON Feliz MD Work Phone: [facility] 10-15-2022 10:40-0400 Body weight 78.02 kg BARRON Feliz MD Work Phone: [facility] 10-15-2022 10:40-0400 Diastolic blood pressure 79 mm[Hg] BARRON Feliz MD Work Phone: [facility] 10-15-2022 10:40-0400 Heart rate 83 /min BARRON Feliz MD Work Phone: [facility] 10-15-2022 10:40-0400 Respiratory rate 16 /min BARRON Feliz MD Work Phone: [facility] 10-15-2022 10:40-0400 SaO2% (BldA) [Mass fraction] 100 % BARRON Feliz MD Work Phone: [facility] 10-15-2022 10:40-0400 Systolic blood pressure 126 mm[Hg] BARRON Feliz MD Work Phone: [facility] 10-08-2022 11:07-0400 Body temperature 98.2 [degF] Chair Jose Work Phone: [facility] 10-08-2022 11:07-0400 Diastolic blood pressure 76 mm[Hg] Chair Jose Work Phone: [facility] 10-08-2022 11:07-0400 Heart rate 70 /min Chair Jose Work Phone: [facility] 10-08-2022 11:07-0400 Respiratory rate 18 /min Chair Jose Work Phone: [facility] 10-08-2022 11:07-0400 SaO2% (BldA) [Mass fraction] 99 % Chair Jose Work Phone: [facility] 10-08-2022 11:07-0400 Systolic blood pressure 129 mm[Hg] Chair Jose Work Phone: [facility] 10-08-2022 10:48-0400 Body temperature 97.2 [degF] BARRON Feliz MD Work Phone: [facility] 10-08-2022 10:48-0400 Body weight 79.65 kg BARRON Feliz MD Work Phone: [facility] 10-08-2022 10:48-0400 Diastolic blood pressure 80 mm[Hg] BARRON Feliz MD Work Phone: [facility] 10-08-2022 10:48-0400 Heart rate 67 /min BARRON Feliz MD Work Phone: [facility] 10-08-2022 10:48-0400 Respiratory rate 16 /min BARRON Feliz MD Work Phone: [facility] 10-08-2022 10:48-0400 SaO2% (BldA) [Mass fraction] 99 % BARRON Feliz MD Work Phone: [facility] 10-08-2022 10:48-0400 Systolic blood pressure 145 mm[Hg] BARRON Feliz MD Work Phone: [facility] 10-01-2022 11:40-0400 Body height 166.9 cm Maryam Hodgson APRN.CNP Work Phone: [facility] 10-01-2022 11:40-0400 Body temperature 96.91 [degF] Maryam Hodgson TELEPHONE OPERATOR RECEPTIONIST.LEAD CONSULTANT Work Phone: [facility] 10-01-2022 11:40-0400 Body weight 80.29 kg Maryam Hodgson TELEPHONE OPERATOR RECEPTIONIST.LEAD CONSULTANT Work Phone: [facility] 10-01-2022 11:40-0400 Diastolic blood pressure 78 mm[Hg] Maryam Hodgson TELEPHONE OPERATOR RECEPTIONIST.LEAD CONSULTANT Work Phone: [facility] 10-01-2022 11:40-0400 Heart rate 74 /min Maryam Hodgson TELEPHONE OPERATOR RECEPTIONIST.LEAD CONSULTANT Work Phone: [facility] 10-01-2022 11:40-0400 Respiratory rate 16 /min Maryam Hodgson TELEPHONE OPERATOR RECEPTIONIST.LEAD CONSULTANT Work Phone: [facility] 10-01-2022 11:40-0400 SaO2% (BldA) [Mass fraction] 99 % Maryam Hodgson TELEPHONE OPERATOR RECEPTIONIST.LEAD CONSULTANT Work Phone: [facility] 10-01-2022 11:40-0400 Systolic blood pressure 129 mm[Hg] Maryam Hodgson TELEPHONE OPERATOR RECEPTIONIST.LEAD CONSULTANT Work Phone: [facility] 10-01-2022 10:47-0400 Body temperature 96.91 [degF] BARRON Feliz MD Work Phone: [facility] 10-01-2022 10:47-0400 Body weight 80.65 kg BARRON Feliz MD Work Phone: [facility] 10-01-2022 10:47-0400 Diastolic blood pressure 78 mm[Hg] BARRON Feliz MD Work Phone: [facility] 10-01-2022 10:47-0400 Heart rate 74 /min BARRON Feliz MD Work Phone: [facility] 10-01-2022 10:47-0400 Respiratory rate 16 /min BARRON Feliz MD Work Phone: [facility] 10-01-2022 10:47-0400 SaO2% (BldA) [Mass fraction] 99 % BARRON Feliz MD Work Phone: [facility] 10-01-2022 10:47-0400 Systolic blood pressure 129 mm[Hg] BARRON Feliz MD Work Phone: [facility] 09-24-2022 10:40-0400 Body temperature 97.59 [degF] BARRON Feliz MD Work Phone: [facility] 09-24-2022 10:40-0400 Body weight 83.46 kg BARRON Feliz MD Work Phone: [facility] 09-24-2022 10:40-0400 Diastolic blood pressure 68 mm[Hg] BARRON Feliz MD Work Phone: [facility] 09-24-2022 10:40-0400 Heart rate 83 /min BARRON Feliz MD Work Phone: [facility] 09-24-2022 10:40-0400 Respiratory rate 18 /min BARRON Feliz MD Work Phone: [facility] 09-24-2022 10:40-0400 SaO2% (BldA) [Mass fraction] 98 % BARRON Feliz MD Work Phone: [facility] 09-24-2022 10:40-0400 Systolic blood pressure 133 mm[Hg] BARRON Feliz MD Work Phone: [facility] 09-17-2022 11:03-0400 Body temperature 97.7 [degF] BARRON Feliz MD Work Phone: [facility] 09-17-2022 11:03-0400 Body weight 84.82 kg BARRON Feliz MD Work Phone: [facility] 09-17-2022 11:03-0400 Diastolic blood pressure 73 mm[Hg] BARRON Feliz MD Work Phone: [facility] 09-17-2022 11:03-0400 Heart rate 75 /min BARRON Feliz MD Work Phone: [facility] 09-17-2022 11:03-0400 Respiratory rate 18 /min BARRON Feliz MD Work Phone: [facility] 09-17-2022 11:03-0400 SaO2% (BldA) [Mass fraction] 95 % BARRON Feliz MD Work Phone: [facility] 09-17-2022 11:03-0400 Systolic blood pressure 167 mm[Hg] BARRON Feliz MD Work Phone: [facility] 09-10-2022 11:17-0500 Body temperature 97.81 [degF] BARRON Feliz MD Work Phone: [facility] 09-10-2022 11:17-0500 Body weight 85.73 kg BARRON Feliz MD Work Phone: [facility] 09-10-2022 11:17-0500 Diastolic blood pressure 81 mm[Hg] BARRON Feliz MD Work Phone: [facility] 09-10-2022 11:17-0500 Heart rate 72 /min BARRON Feliz MD Work Phone: [facility] 09-10-2022 11:17-0500 Respiratory rate 18 /min BARRON Feliz MD Work Phone: [facility] 09-10-2022 11:17-0500 SaO2% (BldA) [Mass fraction] 97 % BARRON Feliz MD Work Phone: [facility] 09-10-2022 11:17-0500 Systolic blood pressure 150 mm[Hg] BARRON Feliz MD Work Phone: [facility] 09-03-2022 11:09-0500 Body height 166.9 cm John England MD Work Phone: [facility] 09-03-2022 11:09-0500 Body temperature 97 [degF] John England MD Work Phone: [facility] 09-03-2022 11:09-0500 Body weight 83.46 kg John England MD Work Phone: [facility] 09-03-2022 11:09-0500 Diastolic blood pressure 74 mm[Hg] John England MD Work Phone: [facility] 09-03-2022 11:09-0500 Heart rate 70 /min John England MD Work Phone: [facility] 09-03-2022 11:09-0500 Respiratory rate 16 /min John England MD Work Phone: [facility] 09-03-2022 11:09-0500 SaO2% (BldA) [Mass fraction] 97 % John England MD Work Phone: [facility] 09-03-2022 11:09-0500 Systolic blood pressure 149 mm[Hg] John England MD Work Phone: [facility] 09-03-2022 09:57-0500 Body temperature 97 [degF] BARRON Feliz MD Work Phone: [facility] 09-03-2022 09:57-0500 Body weight 81.19 kg BARRON Feliz MD Work Phone: [facility] 09-03-2022 09:57-0500 Diastolic blood pressure 74 mm[Hg] BARRON Feliz MD Work Phone: [facility] 09-03-2022 09:57-0500 Heart rate 70 /min BARRON Feliz MD Work Phone: [facility] 09-03-2022 09:57-0500 Respiratory rate 16 /min BARRON Feliz MD Work Phone: [facility] 09-03-2022 09:57-0500 SaO2% (BldA) [Mass fraction] 97 % BARRON Feliz MD Work Phone: [facility] 09-03-2022 09:57-0500 Systolic blood pressure 149 mm[Hg] BARRON Feliz MD Work Phone: [facility] 08-16-2022 15:39-0500 Body height 168.9 cm John England MD Work Phone: [facility] 08-16-2022 15:39-0500 Body temperature 97.7 [degF] John England MD Work Phone: [facility] 08-16-2022 15:39-0500 Body weight 84.73 kg John England MD Work Phone: [facility] 08-16-2022 15:39-0500 Diastolic blood pressure 73 mm[Hg] John England MD Work Phone: [facility] 08-16-2022 15:39-0500 Heart rate 64 /min John England MD Work Phone: [facility] 08-16-2022 15:39-0500 Respiratory rate 16 /min John England MD Work Phone: [facility] 08-16-2022 15:39-0500 SaO2% (BldA) [Mass fraction] 97 % John England MD Work Phone: [facility] 08-16-2022 15:39-0500 Systolic blood pressure 156 mm[Hg] John England MD Work Phone: [facility] 08-14-2022 10:01-0500 Body height 168.9 cm BARRON Feliz MD Work Phone: [facility] 08-14-2022 10:01-0500 Body temperature 97.7 [degF] BARRON Feliz MD Work Phone: [facility] 08-14-2022 10:01-0500 Body weight 84.82 kg BARRON Feliz MD Work Phone: [facility] 08-14-2022 10:01-0500 Diastolic blood pressure 90 mm[Hg] BARRON Feliz MD Work Phone: [facility] 08-14-2022 10:01-0500 Heart rate 58 /min BARRON Feliz MD Work Phone: [facility] 08-14-2022 10:01-0500 Respiratory rate 16 /min BARRON Feliz MD Work Phone: [facility] 08-14-2022 10:01-0500 SaO2% (BldA) [Mass fraction] 99 % BARRON Feliz MD Work Phone: [facility] 08-14-2022 10:01-0500 Systolic blood pressure 167 mm[Hg] BARRON Feliz MD Work Phone: [facility] 06-13-2022 14:55-0500 Blood Pressure Location Renea PARTIDA [facility] [place] 06-13-2022 14:55-0500 Diastolic blood pressure 60 mm[Hg] Renea PARTIDA [facility] [place] 06-13-2022 14:55-0500 Heart rate 60 /min Renea PARTIDA [facility] [place] 06-13-2022 14:55-0500 Respiratory rate 16 /min Renea PARTIDA [facility] [place] 06-13-2022 14:55-0500 Systolic blood pressure 120 mm[Hg] Renea PARTIDA [facility] [place] Encounters Encounter Date Encounter Type Care Provider Facility Start: 02-25-2024 End: 02-25-2024 ambulatory SERENE H TIMMIS Not Available Start: 01-21-2024 End: 01-21-2024 ambulatory SERENE H TIMMIS Not Available Start: 01-14-2024 End: 01-14-[address] [facility] Work Phone: Start: 01-14-2024 End: 01-14-2024 Patient encounter procedure [facility] Work Phone: Start: 12-16-2023 End: 12-16-2023 ambulatory SHAIKH VIDAL Not Available Start: 12-04-2023 End: 12-04-2023 ambulatory SERENE H TIMMIS Not Available Start: 11-20-2023 End: 11-20-2023 ambulatory BOJORQUEZ FAWWAD Not Available Start: 11-06-2023 End: 11-06-2023 [facility] Start: 11-06-2023 End: 11-06-2023 Patient encounter procedure Yordan Feliz MD Work Phone: Radiation Oncology Comment on above: Head and neck cancer (HCC) (Primary Dx) Start: 10-23-2023 End: 10-23-2023 ambulatory BOJORQUEZ FAWWAD Facility:[facility] Start: 10-23-2023 End: 10-23-2023 Office outpatient visit 25 minutes John England MD Work Phone: Hematology/Oncology Comment on above: 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); Lung nodules; Stage 3 chronic kidney disease, unspecified whether stage 3a or 3b CKD (HCC) Start: 10-16-2023 Telephone encounter Rafael sinclair RN Work Phone: Hematology/Oncology Comment on above: Care Coordination (R esults) Start: 10-16-2023 End: 10-16-2023 [facility] Start: 10-02-2023 End: 10-02-2023 ambulatory SERENE H TIMMIS Not Available Start: 09-04-2023 End: 09-04-2023 ambulatory SERENE H TIMMIS Not Available Start: 07-31-2023 End: 07-31-2023 ambulatory SERENE H TIMMIS Not Available Start: 06-24-2023 End: 06-24-2023 ambulatory SERENE H TIMMIS Not Available Start: 06-19-2023 End: 06-19-2023 ambulatory BOJORQUEZ FAWWAD Facility:[facility] Start: 06-12-2023 End: 06-12-2023 ambulatory BOJORQUEZ FAWHID Facility:[facility] Start: 06-11-2023 End: 06-11-2023 [facility] Start: 06-10-2023 End: 06-10-2023 ambulatory SHAIKH VIDAL Not Available Start: 05-27-2023 End: 05-27-2023 ambulatory SERENE MORALES Not Available Start: 05-08-2023 End: 05-08-2023 [facility] Start: 05-08-2023 End: 05-08-2023 Patient encounter procedure Yordan Feliz MD Work Phone: Radiation Oncology Comment on above: Other specified diso rders of thyroid (Primary Dx) Start: 03-20-2023 End: 03-20-2023 [facility] Start: 03-20-2023 End: 03-20-2023 Office outpatient visit 25 minutes John England MD Work Phone: Hematology/Oncology Comment on above: 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); Mass of right lung Start: 03-14-2023 End: 03-14-2023 ambulatory BOJORQUEZ VIDAL Facility:[facility] Start: 02-06-2023 End: 02-06-2023 Orders Only Shaikh Vidal WELCH Work Phone: Hematology/Oncology Comment on above: Hyperlipidemia, unsp ecified hyperlipidemia type (Primary Dx); Type 2 diabetes mellitus without complication, unspecified whether terminal gauger insulin use (HCC); Unspecified essential hypertension Lung nodule seen on imaging study (Primary Dx); Disorder of carbohydrate metabolism (HCC) Start: 02-06-2023 End: 02-06-2023 Office outpatient visit 25 minutes John England MD Work Phone: Hematology/Oncology Comment on above: 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); Mass of right lung; Lung nodules Start: 01-29-2023 End: 01-29-2023 ambulatory Yordan FELIZ Facility:[facility] Start: 11-28-2022 End: 11-28-2022 ambulatory Yordan FELIZ Facility:[facility] Start: 11-28-2022 End: 11-28-2022 Patient encounter procedure Yordan Feliz MD Work Phone: Radiation Oncology Comment on above: 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) Start: 11-07-2022 End: 11-07-2022 ambulatory MARYAM HODGSON Facility:[facility] Start: 11-07-2022 End: 11-07-2022 Office outpatient visit 25 minutes John England MD Work Phone: Hematology/Oncology Comment on above: 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); Chemotherapy-induced neutropenia (HCC); Stage 3 chronic kidney disease, unspecified whether stage 3a or 3b CKD (HCC) Start: 10-31-2022 End: 10-31-2022 ambulatory Chair Talat Garcia Work Phone: Hematology/Oncology Comment on above: 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); Stage 3 chronic kidney disease, unspecified whether stage 3a or 3b CKD (HCC) Start: 10-31-2022 End: 10-31-2022 Patient encounter procedure Maryam Hodgson TELEPHONE OPERATOR RECEPTIONIST.LEAD CONSULTANT Work Phone: JOSE Comment on above: Head and neck cancer (HCC) (Primary Dx) Start: 10-25-2022 End: 10-25-2022 ambulatory Maryam Hodgson TELEPHONE OPERATOR RECEPTIONIST.LEAD CONSULTANT Work Phone: Hematology/Oncology Comment on above: 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); Chemotherapy-induced neutropenia (HCC) Start: 10-25-2022 End: 10-25-2022 Patient encounter procedure Maryam Hodgson TELEPHONE OPERATOR RECEPTIONIST.LEAD CONSULTANT Work Phone: [facility] Start: 10-22-2022 Patient encounter [...] Start: 09-03-2022 End: 09-03-2022 Patient encounter procedure Yordan Feliz MD Work [...] Start: 08-24-2022 Patient encounter procedure [facility] Provider [facility] Department Start: 08-23-2022 End: 08-23-2022 Patient encounter [...] Start: 08-17-2022 Patient encounter procedure [facility] Provider [facility] Department Start: 08-16-2022 End: 08-16-2022 Office outpatient new 60 minutes John England MD Work Phone: Hematology/Oncology Comment on above: 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) Start: 08-15-2022 Patient encounter procedure [facility] Provider [facility] Department Start: 08-15-2022 Telephone encounter G Jeyson [...] for preprocedural laboratory examination DR SERENE MORALES [facility] Start: 07-31-2022 End: 07-31-2022 Patient encounter procedure Renea PARTIDA [facility] Nill/Said [place] Start: 07-31-2022 End: 07-31-2022 ambulatory Renea PARTIDA Facility:[facility] Start: 07-27-2022 End: 07-28-[address] SERENE MORALES Facility: Start: 07-27-2022 End: 07-28-2022 Encounter for preprocedural laboratory examination DR SERENE MORALES Facility:[facility] Start: 07-18-2022 End: 07-19-2022 ambulatory Renea PARTIDA Facility:CD:[id number] Start: 07-11-2022 End: 07-12-[address] RENEA PARTIDA Facility:[facility] Start: 06-13-2022 End: 06-14-2022 ambulatory Renea PARTIDA [facility] Start: 06-13-2022 End: 06-13-2022 Patient encounter procedure Renea PARTIDA General Surgery Nill/Said [place] Start: 06-09-2022 End: 06-10-[address] MANNIE NELSON Facility:[facility] Start: 06-06-2022 ambulatory Renea PARTIDA Facility:[facility] Start: 02-27-2022 End: 02-28-[address] MANNIE NELSON Facility:[facility] Procedures Date Procedure Procedure Detail Performing Clinician Start: 10-08-2022 CBC + DIFF John andrews MD Work Phone: Start: 10-08-2022 Comprehensive metabo lic panel John England MD Work Phone: Start: 10-01-2022 Blood count complete auto&auto difrntl wbc John England MD Work Phone: Start: 09-17-2022 Blood count complete auto&auto difrntl wbc John England MD Work Phone: Start: 02-27-[address] MANNIE HO Comment on above: Performed By: #### P SAD #### [facility] [address] [place] [address] Dr. Mikayla Galan Start: 07-08-2016 Colonoscopy Renea NI LL Start: 07-08-2011 Colonoscopy Renea NI LL Start: 09-05-2006 Colonoscopy Renea NI LL Start: 05-08-2003 Colonoscopy Renea NI JOHN Start: 07-08-2001 Cardiac catheterization Renea PARTIDA Start: 07-08-2001 Placement of stent i n cardiac conduit Renea PARTIDA Start: 05-08-2001 Colonoscopy Renea LOPEZ Start: 07-08-1999 Colonoscopy Renea LOPEZ Start: 07-08-1999 Sigmoid colectomy Beau PARTIDA Comment on above: with colocolostomy Bilateral extraction of cataracts Renea PARTIDA Plan of Treatment Date Care Activity Detail Author Start: 10-15-2026 [facility] Start: 02-06-2026 DIABETES SCREEN DIABETES SCREEN [facility] Start: 02-06-2026 [facility] Start: 11-07-2025 DIABETES SCREEN DIABETES SCREEN [facility] Start: 10-31-2025 DIABETES SCREEN DIABETES SCREEN [facility] Start: 10-25-2025 DIABETES SCREEN DIABETES SCREEN [facility] Start: 10-19-2025 DIABETES SCREEN [facility] Start: 10-08-2025 DIABETES SCREEN [facility] Start: 10-01-2025 DIABETES SCREEN [facility] Start: 09-24-2025 DIABETES SCREEN [facility] Start: 09-17-2025 DIABETES SCREEN [facility] Start: 09-10-2025 DIABETES SCREEN [facility] Start: 09-03-2025 DIABETES SCREEN DIABETES SCREEN [facility] Start: 08-23-2025 DIABETES SCREEN DIABETES SCREEN [facility] Start: 10-15-2024 Complete blood count Hemoglobin/Sebastien tocrit [facility] Start: 10-15-2024 Creatinine measurement Serum Creatin ine [facility] Start: 04-29-2024 End: 04-29-2024 Patient encounter procedure 04/29/2024 10:30 AM EDT Office Visit Radiation Oncology [address] [place] [address] Yordan Feliz MD [address] [place] [address] Followup Radiation Oncology Comment on above: Followup Start: 04-29-2024 End: 04-29-2024 Follow-up encounter 04/29/2024 10:00 AM EDT Visit (SP) Office Hematology/Oncology [address] [place] [address] [place] [address] John England MD [address] [place] [address] 6 month follow up after scans Hematology/Oncology Comment on above: [address] scans Start: 04-23-2024 End: 10-22-2024 CBC W Auto Differential panel - Blood COMPLETE BLOOD COUNT AND DIFFERENTIAL Lab Routine 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 Expected: 04/23/2024 (Approximate), Expires: 10/22/2024 [facility] Work Phone: Comment on above: Expected: 04/23/2024 (Approximate), Expires: 10/22/2024 Start: 04-23-2024 End: 10-22-2024 Cobalamin (Vitamin B12) [Mass/volume] in Serum or Plasma VITAMIN B12 Lab Routine 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 Expected: 04/23/2024 (Approximate), Expires: 10/22/2024 [facility] Work Phone: Comment on above: Expected: 04/23/2024 (Approximate), Expires: 10/22/2024 Start: 04-23-2024 End: 10-22-2024 Comprehensive metabolic 2000 panel - Serum or Plasma COMPREHENSIVE METABOLIC PANEL Lab Routine 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 Expected: 04/23/2024 (Approximate), Expires: 10/22/2024 [facility] Work Phone: Comment on above: Expected: 04/23/2024 (Approximate), Expires: 10/22/2024 Start: 04-23-2024 End: 11-21-2024 CT Chest W contrast IV CT CHEST W IVCON Radiology Routine 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 Expected: 04/23/2024 (Approximate), Expires: 11/21/2024 [facility] Work Phone: Comment on above: Expected: 04/23/2024 (Approximate), Expires: 11/21/2024 Start: 04-23-2024 End: 11-21-2024 CT Neck W contrast IV CT NECK SOFT TISSUE W IVCON Radiology Routine 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 Expected: 04/23/2024 (Approximate), Expires: 11/21/2024 [facility] Work Phone: Comment on above: Expected: 04/23/2024 (Approximate), Expires: 11/21/2024 Start: 04-23-2024 End: 10-22-2024 Ferritin [Mass/volume] in Serum or Plasma FERRITIN Lab Routine 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 Expected: 04/23/2024 (Approximate), Expires: 10/22/2024 [facility] Work Phone: Comment on above: Expected: 04/23/2024 (Approximate), Expires: 10/22/2024 Start: 04-23-2024 End: 10-22-2024 Folate [Mass/volume] in Serum or Plasma FOLATE, SERUM Lab Routine 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 Expected: 04/23/2024 (Approximate), Expires: 10/22/2024 [facility] Work Phone: Comment on above: Expected: 04/23/2024 (Approximate), Expires: 10/22/2024 Start: 04-23-2024 End: 10-22-2024 Iron and Iron binding capacity panel - Serum or Plasma IRON AND TIBC Lab Routine 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 Expected: 04/23/2024 (Approximate), Expires: 10/22/2024 [facility] Work Phone: Comment on above: Expected: 04/23/2024 (Approximate), Expires: 10/22/2024 Start: 04-23-2024 End: 04-23-2024 Patient encounter procedure 04/23/2024 8:15 AM EDT Appointment Radiology Pet CT [address] [place] [address] [place] [address] CT CHEST AND NECK Radiology Pet CT Comment on above: CT CHEST AND NECK Start: 03-08-2024 Influenza vaccination Influenz a Vaccine (Season Ended) [facility] Start: 02-07-2024 SERUM CREATININE SERUM CREATININE [facility] Start: 11-08-2023 SERUM CREATININE SERUM CREATININE [facility] Start: 11-06-2023 End: 02-05-2024 Thyrotropin [Units/volume] in Serum or Plasma TSH BLD Lab Routine Other specified disorders of thyroid Expected: 11/06/2023 (Approximate), Expires: 02/05/2024 [facility] Work Phone: Comment on above: Expected: 11/06/2023 (Approximate), Expires: 02/05/2024 Start: 11-06-2023 End: 02-05-2024 Thyroxine (T4) free [Mass/volume] in Serum or Plasma T4 FREE/FREE THYROX Lab Routine Other specified disorders of thyroid Expected: 11/06/2023 (Approximate), Expires: 02/05/2024 [facility] Work Phone: Comment on above: Expected: 11/06/2023 (Approximate), Expires: 02/05/2024 Start: 11-06-2023 End: 02-05-2024 Triiodothyronine (T3) [Mass/volume] in Serum or Plasma T3 BLD Lab Routine Other specified disorders of thyroid Expected: 11/06/2023 (Approximate), Expires: 02/05/2024 [facility] Work Phone: Comment on above: Expected: 11/06/2023 (Approximate), Expires: 02/05/2024 Start: 2023 HEMOGLOBIN/HEMATOCRIT HEMOGLOBIN/HEM ATOCRIT [facility] Start: 2023 SERUM CREATININE SERUM CREATININE [facility] Start: 07-08-2023 Advance Directive Discussion Advance Directive Discussion [facility] Start: 07-08-2023 Behavioral Health Screening Behavioral Health Screening [facility] Start: 06-19-2023 End: 03-20-2024 CBC W Auto Differential panel - Blood CBC + DIFF Lab Routine 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) Mass of right lung Expected: 06/19/2023 (Approximate), Expires: 03/20/2024 [facility] Work Phone: Comment on above: Expected: 06/19/2023 (Approximate), Expires: 03/20/2024 Start: 06-19-2023 End: 03-20-2024 Comprehensive metabolic 2000 panel - Serum or Plasma COMP METABOLIC PANEL Lab Routine 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) Mass of right lung Expected: 06/19/2023 (Approximate), Expires: 03/20/2024 [facility] Work Phone: Comment on above: Expected: 06/19/2023 (Approximate), Expires: 03/20/2024 Start: 06-19-2023 End: 04-18-2024 CT CHEST W IVCON CT CHEST W IVCON Radiology Routine 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) Mass of right lung Expected: 06/19/2023 (Approximate), Expires: 04/18/2024 [facility] Work Phone: Comment on above: Expected: 06/19/2023 (Approximate), Expires: 04/18/2024 Start: 03-13-2023 End: 03-07-2024 CT CHEST W IVCON CT CHEST W IVCON Radiology Routine Lung nodules Expected: 03/13/2023 (Approximate), Expires: 03/07/2024 [facility] Work Phone: Comment on above: Expected: 03/13/2023 (Approximate), Expires: 03/07/2024 Start: 03-08-2023 Covid-19 Vaccine ( season) Covid-19 Vaccine ( season) [facility] Start: 03-08-[address] [facility] Start: 02-06-2023 End: 04-08-2023 ALBUMIN/CREAT RATIO RND [facility] Work Phone: Comment on above: Expected: 02/06/2023 , Expires: 04/08/2023 Start: 02-06-2023 End: 04-08-2023 Creatinine [Mass/volume] in Urine collected for unspecified duration [facility] Work Phone: Comment on above: Expected: 02/06/2023 , Expires: 04/08/2023 Start: 02-06-2023 End: 04-08-2023 Hemoglobin A1c in Blood [facility] Work Phone: Comment on above: Expected: 02/06/2023 , Expires: 04/08/2023 Start: 02-06-2023 End: 04-08-2023 Lipid 1996 panel - Serum or Plasma [facility] Work Phone: Comment on above: Expected: 02/06/2023 , Expires: 04/08/2023 Start: 01-30-2023 End: 11-08-2023 CBC W Auto Differential panel - Blood CBC + DIFF Lab Routine 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) Chemotherapy-induced neutropenia (HCC) Expected: 01/30/2023 (Approximate), Expires: 11/08/2023 [facility] Work Phone: Comment on above: Expected: 01/30/2023 (Approximate), Expires: 11/08/2023 Start: 01-30-2023 End: 11-08-2023 Comprehensive metabolic 2000 panel - Serum or Plasma COMP METABOLIC PANEL Lab Routine 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) Chemotherapy-induced neutropenia (HCC) Expected: 01/30/2023 (Approximate), Expires: 11/08/2023 [facility] Work Phone: Comment on above: Expected: 01/30/2023 (Approximate), Expires: 11/08/2023 Start: 01-28-2023 End: 12-28-2023 NM PET/CT SKULL-THIGH SUBSEQUENT NM PET/CT SKULL-THIGH SUBSEQUENT Radiology Routine 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) Expected: 01/28/2023, Expires: 12/28/2023 [facility] Work Phone: Comment on above: Expected: 01/28/2023 , Expires: 12/28/2023 Start: 11-08-2022 End: 01-08-2023 CBC W Auto Differential panel - Blood CBC + DIFF Lab Routine 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) Expected: 11/08/2022, Expires: 01/08/2023 [facility] Work Phone: Comment on above: Expected: 11/08/2022 , Expires: 01/08/2023 Start: 11-08-2022 End: 01-08-2023 Comprehensive metabolic 2000 panel - Serum or Plasma COMP METABOLIC PANEL Lab Routine 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) Expected: 11/08/2022, Expires: 01/08/2023 [facility] Work Phone: Comment on above: Expected: 11/08/2022 , Expires: 01/08/2023 Start: 10-26-2022 End: 12-26-2022 CBC W Auto Differential panel - Blood CBC + DIFF Lab Routine 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) Chemotherapy-induced neutropenia (HCC) Expected: 10/26/2022, Expires: 12/26/2022 [facility] Work Phone: Comment on above: Expected: 10/26/2022 , Expires: 12/26/2022 Start: 10-26-2022 End: 12-26-2022 Comprehensive metabolic 2000 panel - Serum or Plasma COMP METABOLIC PANEL Lab Routine 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) Chemotherapy-induced neutropenia (HCC) Expected: 10/26/2022, Expires: 12/26/2022 [facility] Work Phone: Comment on above: Expected: 10/26/2022 , Expires: 12/26/2022 Start: 07-08-2022 ADVANCE DIRECTIVE DISCUSSION ADVANCE DIRECTIVE DISCUSSION [facility] Start: 07-08-2022 DEPRESSION ASSESSMENT DEPRESSION ASS ESSMENT [facility] Start: 2020 COVID-19 VACCINE (3 - Booster for Moderna series) COVID-19 VACCINE (3 - Booster for Moderna series) [facility] Start: 10-04-2020 COVID-19 VACCINE (3 - Moderna risk series) COVID-19 VACCINE (3 - Moderna risk series) [facility] Start: 10-31-2008 Pneumococcal Vaccine : 65+ (1 of 1 - PCV) Pneumococcal Vaccine: 65+ (1 of 1 - PCV) [facility] Start: 10-31-2008 PNEUMOCOCCAL: 65+ (1 - PCV) PNEUMOCOCCAL: 65+ (1 - PCV) [facility] Start: 2003 RSV Vaccine (1 - 1-d ose 60+ series) RSV Vaccine (1 - 1-dose 60+ series) [facility] Start: 10-31-1993 SHINGRIX VACCINE (1 of 2) SANCHEZ GRIX VACCINE (1 of 2) [facility] Start: 10-31-1988 DIABETES SCREEN DIABETES SCREEN [facility] Start: 10-31-1962 SHINGRIX VACCINE (1 of 2) SANCHEZ GRIX VACCINE (1 of 2) [facility] Start: 10-31-1962 Urine microalbumin profile [facility] Start: 10-31-1961 ANNUAL PCP TEAM MACHINIST GENERAL BELLE DISEASE VISIT ANNUAL PCP TEAM CHRONIC DISEASE VISIT [facility] Start: 10-31-1961 HEPATITIS C SCREENING HEPATITIS C SC MELISSA [facility] Start: 10-31-1949 Pneumococcal Vaccine : 65+ (1 - PCV) Pneumococcal Vaccine: 65+ (1 - PCV) [facility] Start: 10-31-1949 Pneumococcal Vaccine : 65+ (1 of 2 - PCV) Pneumococcal Vaccine: 65+ (1 of 2 - PCV) [facility] Start: 10-31-1949 PNEUMOCOCCAL: 65+ (1 - PCV) PNEUMOCOCCAL: 65+ (1 - PCV) [facility] End: 08-16-2023 CBC W Auto Differential panel - Blood CBC + DIFF Lab Routine Cancer of base of tongue (HCC) Once per week for 10 Occurrences starting 08/16/2022 until 08/16/2023, 1 completed [facility] Work Phone: Comment on above: Once per week for 10 Occurrences starting 08/16/2022 until 08/16/2023, 1 completed CBC W Auto Different ial panel - Blood CBC + DIFF Lab Routine Cancer of base of tongue (HCC) 10/08/2022 11:35 AM EDT [facility] Work Phone: End: 08-16-2023 Comprehensive metabolic 2000 panel - Serum or Plasma COMP METABOLIC PANEL Lab Routine Cancer of base of tongue (HCC) Once per week for 10 Occurrences starting 08/16/2022 until 08/16/2023, 1 completed [facility] Work Phone: Comment on above: Once per week for 10 Occurrences starting 08/16/2022 until 08/16/2023, [address] [facility] ONCOLOGY Radiology Routine Tongue cancer (HCC) Ordered: 08/23/2022 [facility] Work Phone: Comment on above: Ordered: 08/23/2022 End: 09-13-[address] attenuation skull base mid-thigh NM PET/CT SKULL-THIGH INITIAL Radiology Routine Tongue cancer (HCC) Head and neck cancer (HCC) 1 Occurrences starting 08/14/2022 until 09/13/2023 [facility] Work Phone: Comment on above: 1 Occurrences starti 08/14/2022 until 09/13/2023 [facility] Immunizations Immunization Date Immunization Notes Care Provider [facility] 05-03-2022 influenza nasal, unspecified formulation [facility] Provider [facility] 05-03-2022 influenza virus vaccine, unspecified formulation Renea PARTIDA [facility] 09-06-2020 SARS-CoV-2 (COVID-19 ) mRNA-1273 vaccine Renea PARTIDA [facility] 08-09-2020 SARS-CoV-2 (COVID-19 ) mRNA-1273 vaccine Renea PARTIDA [facility] [place] Payers Date Payer Category Payer Unknown HOSPITAL/MEDICAL GENERIC MEDICAL GENERIC [id number] 2022-Present [phone] [place] [address] [address] [place] [address] Indemnity [id number] 2020 Private Health Insurance [employer]MENT [id number] 2020-Present [phone] [address] [address] [place] [address] Indemnity [id number] 2020 Private Health Insurance [facility] [id number] 2013 Medicare [id number] 1959 Medicare [id number] 1959 Private Health Insurance CLI [id number] 1943 Unknown [id number] 2.16.840.1.995657.3.579.2. 727 1943 Unknown [id number] 2.16.840.1.105710.3.579.2. 727 1943 Unknown [id number] 2.16.840.1.579382.3.579.2. 727 1943 Unknown [id number] 2.16.840.1.699409.3.579.2. 593 1943 Unknown [id number] 2.16.840.1.035269.3.579.2. 593 1943 Unknown [id number] 2.16.840.1.748345.3.579.2. 593 1943 Unknown [id number] 2.16.840.1.025023.3.579.2. 593 1943 Unknown [id number] 2.16.840.1.794542.3.579.2. 593 1943 Unknown [id number] 2.16.840.1.838917.3.579.2. 593 1943 Unknown [id number] 2.16.840.1.519937.3.579.2. 1259 1943 Unknown [id number] 2.16.840.1.490942.3.579.2. 1259 1943 Unknown [id number] 2.16.840.1.715072.3.579.2. 9 1943 Unknown [id number] 2.16.840.1.564571.3.579.2. 9 1943 Unknown [id number] 2.16.840.1.808475.3.579.2. 1258 1943 Unknown [id number] 2.16.840.1.820755.3.579.2. 1259 1943 Unknown [id number] 2.16.840.1.138382.3.579.2. 1258 1943 Unknown [id number] 2.16.840.1.185423.3.579.2. 9 1943 Unknown [id number] 2.16.840.1.150802.3.579.2. 1258 1943 Unknown [id number] 2.16.840.1.882104.3.579.2. 1258 1943 Unknown [id number] 2.16.840.1.930839.3.579.2. 1258 1943 Unknown [id number] 2.16.840.1.668477.3.579.2. 1259 Social History Date Type Detail Facility Start: 06-13-2022 End: 09-03-2022 Tobacco smoking status Never smoked tobacco (finding) [facility] Tobacco smoking status Never [facility] Start: 11-07-2022 End: 02-06-2023 Sex Assigned At Male [facility] Start: 04-30-2013 End: 09-03-2022 Tobacco use and exposure Smokeless tobacco non-user [facility] Start: 08-14-2022 End: 11-06-2023 Alcohol intake Current drinker of alcohol (finding) [facility] Start: 08-14-2022 Alcohol Comment daily 3 beers [facility] Start: 1945 Sex Assigned At Not on file [facility] Start: 11-07-2022 End: 02-06-2023 History of Social function [facility] Start: 1945 Sex Assigned At Male [facility] NEGATED: Highlighted rowStart: PROSPERF History of tobacco use Passive smoker [facility] Functional Status Date Assessment Result Facility 06-13-2022 Functional Status N/A [facility] Clinical Notes 04-28-2015 to 11-06-2023 Yordan Feliz MD - 11/06/2023 10:00 AM EDTPatient InstructionsAbJohn au MD - 10/23/2023 10:45 AM EDTTelephone Encounter - Rafael Meng RN - 10/16/2023 1:14 PM EDT Note Date & Type Note Facility 11-06-2023 Note HNO ID: [id number] Author: Yordan FELIZ MD Service: ? Author [...] Lymph 1.00 - 4.00 k/uL 0.48 (L) [place]% % 10.4 Abs [place] <0.87 k/uL 0.32 Eosin% % 1.6 Abs [...] Oropharynx: Lips, mu (more content not included)... [facility] 11-06-2023 History of Presen t illness Narrative [...] Lymph 1.00 - 4.00 k/uL 0.48 (L) [place]% % 10.4 Abs [place] <0.87 k/uL 0.32 Eosin% % 1.6 Abs [...] Feliz MD cc: Dr. Shaikh Vidal Estrada [address] [place] [address] documented in this encounter [facility] 10-23-2023 Note HNO ID: [id number] Author: OJHN ENGLAND MD Service: ? Author Type: Physician Type: Progress Notes Filed: 10/23/2023 22:31 Note Text: NAME: Dk Manish [facility] NO.: [id number] DATE OF SERVICE: October 23, 2023 (Jacquelyn) [...] Ca Stage 3 - 2/5 LN + [place] regimen on protocol Updated Visit, October 23, [...] night sweats and (more content not included)... [facility] 10-23-2023 Instructions Kelli Merchant - 10/23/2023 11:[address] Neck and Chest in 6 months Labs same day, include anemia workup RTC 1 week after to review documented in this encounter [facility] 10-23-2023 History of Presen t illness Narrative Images from the original note were not included. NAME: Manish Root [facility] NO.: [id number] DATE OF SERVICE: October 23, 2023 (Jacquelyn) [...] Ca Stage 3 - 2/5 LN + [place] regimen on protocol Updated Visit, October 23, [...] which included preparing to see the patient, [id number] patient care, completing clinical documentation, performing a medically appropriate examination, counseling and educating the patient/family/caregiver, ordering medications, tests, or procedures, independently interpreting results (not separately reported), communicating results to the patient/family/caregiver, and care coordination (not separately reported). John England MD, CPE Hematology and Oncology Services Provided at: [place], [place] Scribe Attestation: This note was scribed by Kleli Merchant on October 23, 2023 under the [...] Dr. Yordan Morales documented in this encounter [facility] 10-16-2023 Miscellaneous Notes Pt had labs drawn today. Requests that the results be faxed to his PCP, Dr Drake. Results of CBC and CMP faxed to [phone]. Rafael Meng RN documented in this encounter [facility] 10-16-2023 Note HNO ID: [id number] Author: RAFAEL ZURITA RT(R) Service: ? Author [...] PATIENT PRESENTS WITH AN IMPLANTABLE OR ATTACHED HEAD INSPECTOR AND CENTER MARKER: No RADIOLOGY DEPARTMENT: CT; Exam(s) Completed: Chest and Neck PERIPHERAL IV DATA: Site assessment: Clean,Dry and Intact, Site disposition Discontinued SIGNED BY: RT Perlita(R) October 16, 2023 11:34 AM [facility] 06-19-2023 Note HNO ID: [id number] Author: John [place] MD Service: ? Author Type: Physician Type: Progress Notes Filed: 06/20/2023 8:01 AM Note Text: NAME: Manish Root [facility] NO.: [id number] DATE OF SERVICE: June 19, 2023 (Jacquelyn) [...] a prior history of colon cancer in 2000. July 31, 2022 - Stage : T3 [...] Ca Stage 3 - 2/5 LN + [place] regimen on protocol Updated Visit, June 19, [...] is anxious. Updated Visit, November 07, 2022: Mnaish returns with Jhaaira. Eating is much better but taste is [...] with radiation and (more content not included)... [facility] 06-12-2023 Note HNO ID: [id number] Author: Rafael Zurita RT(R) Service: ? Author [...] Site disposition Discontinued SIGNED BY: RT Perlita(R) June 12, 2023 8:18 AM [facility] 06-12-2023 Note HNO ID: [id number] Author: Gisela Ruiz RN Service: ? Author [...] DATE: June 12, 2023 TIME: 8:07 AM [facility] 05-08-2023 Note HNO ID: [id number] Author: Yordan Feliz MD Service: ? Author [...] Feliz MD cc: Dr. Shaikh Vidal Estrada [address] [place] [address] [facility] 05-08-2023 History of Presen t illness Narrative [...] Feliz MD cc: Dr. Shaikh Vidal Estrada [address] [place] [address] documented in this encounter [facility] 03-20-2023 Note HNO ID: [id number] Author: John England MD Service: ? Author Type: Physician Type: Progress Notes Filed: 03/20/2023 1:24 PM Note Text: NAME: Manish Root [facility] NO.: [id number] DATE OF SERVICE: March 20, 2023 (Jacquelyn) [...] Ca Stage 3 - 2/5 LN + [place] regimen on protocol Updated Visit, March 20, [...] wishes to procee (more content not included)... [facility] 03-20-2023 Instructions John England MD - 03/20/2023 1:[address] Chest in 3 months Labs same day RTC 1 week after to review. documented in this encounter [facility] 03-20-2023 History of Presen t illness Narrative Images from the original note were not included. NAME: Dk Manish [facility] NO.: [id number] DATE OF SERVICE: March 20, 2023 (Jacquelyn) [...] Ca Stage 3 - 2/5 LN + [place] regimen on protocol Updated Visit, March 20, [...] which included preparing to see the patient, [id number] patient care, completing clinical documentation, performing a medically appropriate examination, counseling and educating the patient/family/caregiver, ordering medications, tests, or procedures, independently interpreting results (not separately reported), communicating results to the patient/family/caregiver, and care coordination (not separately reported). John England MD, CPE Hematology and Oncology Services Provided at: [place], [place] CC: Dr. Yordan Morales documented in this encounter [facility] 03-14-2023 Note HNO ID: [id number] Author: Rafael Zurita RT(R) Service: ? Author [...] RT Perlita(R) March 14, 2023 1:52 PM [facility] 03-14-2023 Note HNO ID: [id number] Author: Maggie Partida RN Service: ? Author [...] DATE: March 14, 2023 TIME: 1:55 PM [facility] 02-06-2023 Note HNO ID: [id number] Author: Yordan Feliz MD Service: ? Author [...] Yordan Feliz MD cc: Dr. Shaikh Vidal Reyes[address] [place] [address] [facility] 02-06-2023 Note HNO ID: [id number] Author: John England MD Service: ? Author Type: Physician Type: Progress Notes Filed: 02/06/2023 12:24 PM Note Text: NAME: Manish Root NO.: [id number] DATE OF SERVICE: February 06, 2023 (Jacquelyn) [...] Ca Stage 3 - 2/5 LN + [place] regimen on protocol Updated Visit, February 06, [...] 0 PHYSICAL EXAMIN (more content not included)... [facility] 02-06-2023 Instructions John England MD - 02/06/2023 12:[address] Chest in 5 weeks RTC 6 weeks to review please documented in this encounter [facility] 02-06-2023 History of Presen t illness Narrative [...] Feliz MD cc: Dr. Shaikh Vidal Estrada [address] [place] [address] documented in this encounter [facility] 02-06-2023 History of Presen t illness Narrative Images from the original note were not included. NAME: Manish Root [facility] NO.: [id number] DATE OF SERVICE: February 06, 2023 (Jacquelyn) [...] Ca Stage 3 - 2/5 LN + [place] regimen on protocol Updated Visit, February 06, [...] which included preparing to see the patient, jbtm-jm-[id number] patient care, completing clinical documentation, performing a medically appropriate examination, counseling and educating the patient/family/caregiver, ordering medications, tests, or procedures, communicating with other HCPs (not separately reported), independently interpreting results (not separately reported), communicating results to the patient/family/caregiver, and care coordination (not separately reported). John England MD, CPE Hematology and Oncology Services Provided at: [place], [place] CC: Dr. Yordan Morales documented in this encounter [facility] 02-06-2023 Nurse Note Patient has easy bruising more so on arms, voice is always changing and has a lot of phlegm. Lala Hooper MA documented in this encounter [facility] 01-29-2023 Note HNO ID: [id number] Author: Malcolm Thurston RT(R) Service: ? Author [...] 1105 PATIENT DISCHARGED TO: Ambulatory patient, left MD department area. A Diagnostic radioactive procedure has taken place, with no further precautions necessary other than routine body substance precautions. More information regarding radiation safety can be found using this link: [email or web address] [email or web address] SIGNATURE: RT Aron(R) PATIENT NAME: Manish Root DATE: January 29, 2023 TIME: 11:48 AM PAGER/CONTACT #: [facility] 01-29-2023 Note HNO ID: [id number] Author: Maggie Partida RN Service: ? Author [...] DATE: January 29, 2023 TIME: 11:06 AM [facility] 11-28-2022 Note HNO ID: [id number] Author: Yordan Feliz MD Service: ? Author [...] by: Yordan Feliz MD cc: Mannie Nelson [facility] [address] Maryam Hodgson [address] [place] [address] [place] [address] [facility] 11-28-2022 History of Presen t illness Narrative [...] Feliz MD cc: Mannie Nelson [address] [place] [address] Maryam Surinder [address] [place] [address] [place] [address] documented in this encounter [facility] 11-07-2022 Note HNO ID: [id number] Author: John England MD Service: ? Author Type: Physician Type: Progress Notes Filed: 11/07/2022 9:56 AM Note Text: NAME: Manish Root [facility] NO.: [id number] DATE OF SERVICE: November 07, 2022 (Jacquelyn) Some elements in this clinic note that are critical to medical decision making have been carefully reviewed and included from a prior clinic note dated: October 31, 2022 (Surinder) Referring Provider: Dr. Татьяна Feliz Additional Clinicians [...] Ca Stage 3 - 2/5 LN + [place] regimen on protocol Updated Visit, November 07, [...] Gen.: This is (more content not included)... [facility] 11-07-2022 Instructions John England MD - 11/07/2022 9:53 AM EDT Continue seeing Dr. Feliz and Dr. Morales. RTC in 12 -13 weeks (after PET is complete) PET per Dr. Feliz Coordinate return on same date as Dr. Feliz. Labs on day return documented in this encounter [facility] 11-07-2022 History of Presen t illness Narrative Images from the original note were not included. NAME: Dk Manish [facility] NO.: [id number] DATE OF SERVICE: November 07, 2022 (Jacquelyn) Some elements in this clinic note that are critical to medical decision making have been carefully reviewed and included from a prior clinic note dated: October 31, 2022 (Surinder) Referring Provider: Dr. Татьяна Feliz Additional Clinicians involved in Manish Kassidy Root's care: DIAGNOSIS: Base of Tongue squamous [...] Ca Stage 3 - 2/5 LN + [place] regimen on protocol Updated Visit, November 07, [...] which included preparing to see the patient, vnzh-ol-jxzx patient care, completing clinical documentation, performing a medically appropriate examination, counseling and educating the patient/family/caregiver, ordering medications, tests, or procedures, and independently interpreting results (not separately reported). John England MD, CPE Hematology and Oncology Services Provided at: [place], [place] CC: Dr. 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 NAME: Manish Root [facility] NO.: [id number] DATE OF SERVICE: October 31, 2022 (Surinder) Some elements in this clinic note that are critical to medical decision making have been carefully reviewed and included from a prior clinic note dated: October 25, 2022. (Surinder) Some elements in this clinic note that [...] Ca Stage 3 - 2/5 LN + [place] regimen on protocol Updated Visit, October 31, [...] No family history on file. Maryam Hodgson APRN.[facility] Hematology and Oncology Services Provided at: [place], [place] CC: Dr. Yordan Morales I spent a total of 30 minutes on the date of the service which included preparing to see the patient, hjtj-zz-wxes patient care, completing clinical documentation, obtaining and/or reviewing separately obtained history, performing a medically appropriate examination, counseling and educating the pat ient/family/caregiver, ordering medications, tests, or procedures, independently interpreting results (not separately reported), and communicating results to the patient/family/caregiver. documented [facility] History of Present illness Narrative* Yordan Feliz [...] by: Yordan Feliz MD cc: Mannie Nelson [facility] [address] Maryam Hodgson [address] [place] [address] [place] [address] documented in [facility] encounter[facility] History of Present illness Narrative* Maryam Hodgson APRN.LEAD CONSULTANT - 10/25/2022 10:01 AM EDT Images from the original note were not included. NAME: Dk Manish CLINIC NO.: [id number] DATE OF SERVICE: October 25, 2022 (Surinder) Some elements in this clinic note that [...] Ca Stage 3 - 2/5 LN + [place] regimen on protocol Updated Visit, October 25, [...] APRN.CNP Hematology and Oncology Services Provided at: [place], [place] CC: Dr. Yordan Morales I spent a total of 30 minutes on the date of the service which included preparing to see the patient, xqlx-mh-hppp patient care, completing clinical documentation, obtaining and/or reviewing separately obtained history, performing a medically appropriate examination, counseling and educating the pat ient/family/caregiver, ordering medications, tests, or procedures, independently interpreting results (not separately reported), and communicating results to the patient/family/caregiver. documented [facility] this encounter[facility] History of Present illness Narrative* Yordan Feliz MD - 10/22/2022 12:00 AM EDT [facility] Radiation Oncology Department RADIATION ONCOLOGY - [...] cc: Dr. 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 Neupogen 480 mcg x 1 today Needs to hydrate. Labs next Saturday CBC, CMP, possible hydration Stay for results - see Maryam documented in this encounterAv[facility] History of Present illness Narrative* John England MD - 10/19/2022 10:05 AM EDT Images from the original note were not included. NAME: Manish Root [facility] NO.: [id number] DATE OF SERVICE: October 19, 2022 (Jacquelyn) Some elements in this clinic note that are critical to medical decision making have been carefully reviewed and included from a prior clinic note dated: October 01, 2022 (Surinder) Some elements in this clinic note that [...] Ca Stage 3 - 2/5 LN + [place] regimen on protocol Updated Visit, October 19, [...] which included preparing to see the patient, qxdy-aq-tzzv patient care, completing clinical documentation, obtaining and/or reviewing separately obtained history, counseling and educating the patient/family/caregiver, ordering medications, cliff ts, or procedures, and independently interpreting results (not separately reported). John England MD, CPE Hematology and Oncology Services Provided at: [place], [place] CC: Dr. Yordan Morales documented in this encounterAv[facility] History of Present illness Narrative* Yordan Feliz [...] discussed. Yordan Feliz MD documented in this encounterAv[facility] Miscellaneous Notes* Telephone Encounter - Diana García [...] recommendations? Diana García LPN documented in this encounterAv[facility] History of Present illness Narrative* G Jeyson [...] outlined. Yordan Feliz MD documented in this encounterAv[facility] History of Present illness Narrative* Dee Gil RD - 10/05/2022 10:45 AM EDT Oncology Nutrition Therapy Progress Note Attemped to see patient, however patient left after radiation treatment and did not stay for appointment with dietitian. Signed by: Dee Gil MS, RDN, LD documented in this encounterAv[facility] History of Present illness Narrative* Maryam Hodgson APRN.LEAD CONSULTANT - 10/01/2022 11:26 AM EDT Images from the original note were not included. NAME: Manish Root [facility] NO.: [id number] DATE OF SERVICE: October 01, 2022 (Surinder) Some elements in this clinic note that [...] Ca Stage 3 - 2/5 LN + [place] regimen on protocol Updated Visit, October 01, 2022: Manish Yi Dk returns for follow-up and treatment. He remains [...] APRN.CNP Hematology and Oncology Services Provided at: [place], [place] CC: Dr. Yordan Morales I spent a total of 30 minutes on the date of the service which included preparing to see the patient, hspb-nj-qlbu patient care, completing clinical documentation, obtaining and/or reviewing separately obtained history, performing a medically appropriate examination, counseling and educating the pat ient/family/caregiver, ordering medications, tests, or procedures, independently interpreting results (not separately reported), and communicating results to the patient/family/caregiver. documented in this encounterAv[facility] History of Present illness Narrative* Yordan Feliz MD - 10/01/2022 10:30 AM EDT [...] outlined. Yordan Feliz MD documented in this encounterAv[facility] History of Present illness Narrative* Yordan Feliz [...] Continue radiation as outlined. documented in this encounterAv[facility] History of Present illness Narrative* Dee Gil RD - 09/21/2022 10:06 AM EDT Oncology [...] Dosing Weight: 84.8 kg Estimated kilocalorie needs: 0219-3089 kilocalories determined by 25-30 kcal/kg Estimated protein needs: 85-102 grams determined by 1.0-1.2 g/kg Current weight Estimated fluid needs: ~2858-9718 milliliters based on 1 mL per kcal [...] Gil MS, RDN, LD documented in this encounterAv[facility] History of Present illness Narrative* G Jeyson [...] Continue radiation as outlined. documented in this encounterAvita [facility]23 History of Present illness Narrative* Yordan Feliz [...] Continue radiation as outlined. documented in this encounterAvita [facility]03-[facility]-2023 Miscellaneous Notes* Telephone Encounter - ISH Waite - 09/07/2022 12:11 PM EST SOCIAL WORK FOLLOW UP NOTE: [facility] Date of service:09/07/22 Manish Root is being seen for a follow up social work visit. Today's visit includes: patient TOPICS ADDRESSED: community resources and [facility] PLAN: Assist with financial support applications and Continue follow up as needed F/U APPOINTMENT: PRN Assigned JEANNETTE listed in Care Team tab: Yes Patient dropped off a partial completed intake form for the [employer] [facility]. Jeannette completed the medical section of the form and faxed it to Maren at the [facility]. JEANNETTE called Maren to verify that the fax was received. SW called Patient to let him know that his application was received and he needs to call Maren to talk about next steps. JEANNETTE will remain available and will follow up as appropriate. CHARLIE Waite documented in this encounterAv[facility]23 Miscellaneous Notes* Telephone Encounter - Rafael Meng RN - 09/06/2022 1:36 PM EST [...] protocol. Rafael Meng RN documented in this encounterAvita [facility] History of Present illness Narrative* Nica Green [...] ordered. Araceli Anne RN documented in this encounterAvita [facility]02-27-[facility]23 Instructions* Patient Instructions* John England MD - 09/03/2022 11:12 AM EST Start Cisplatin weekly to start with radiation Labs weekly please. RTC 1 week See Amina / Maryam Labs same day. documented in this encounterAvita [facility] History of Present illness Narrative* John England MD - 09/03/2022 10:45 AM EST Images from the original note were not included. NAME: Manish Root CLINIC NO.: [id number] DATE OF SERVICE: September 03, 2022 (Jacquelyn) [...] Ca Stage 3 - 2/5 LN + [place] regimen on protocol Updated Visit, September 03, [...] which included preparing to see the patient, obpo-rb-aghz patient care, completing clinical documentation, performing a medically appropriate examination, counseling and educating the patient/family/caregiver, ordering medications, tests, or p rocedures, communicating with other HCPs (not separately reported), independently interpreting results (not separately reported), and care coordination (not separately reported). John England MD, CPE Hematology and Oncology Services Provided at: [place], [place] CC: MD Serene Mcclendon MD documented in this encounterAvita [facility] History of Present illness Narrative* Yordan Feliz [...] Continue radiation as prescribed. documented in this encounterAvita [facility]02-[facility]23 Miscellaneous Notes* Telephone Encounter - Rafael Meng RN - 08/29/2022 12:52 PM EST Pt calls w/ questions pertaining to his upcoming treatment. Questions reviewed and answered. Pt denies any further questions at this time. Rafael Meng RN documented in this encounterAvita [facility]23 Miscellaneous Notes* Telephone Encounter - Rafael Meng [...] Thanks! Rafael Meng RN documented in this encounterAvita [facility]23 Miscellaneous Notes* Telephone Encounter - Rafael Meng RN - 08/27/2022 11:23 AM EST Pt had several questions pertaining to treatment while he was here today. Questions reviewed and answered in person. No additional questions noted. Appointment reminder provided to pt as well. Rafael Meng RN documented in this encounterAvita [facility]23 Miscellaneous Notes* Telephone Encounter - Madonna Barnes [...] Thanks! Rafael Meng RN documented in this encounterAvita [facility] History of Present illness Narrative* G Jeyson Feliz MD - 08/23/2022 12:00 AM EST MANISH ROOT [id number] 08/23/2022 [facility] Radiation Oncology Department SIMULATION NOTE DATE OF SIMULATION: 08/23/2022 THERAPIST: Vinita Calderon MACHINE: Markit mCT DIAGNOSIS: Malignant neoplasm of base of [id number] AREA: H&N CONTRAST: IV Consent in Epic: [...] / NRS 1:21 AM documented in this encounterAvita [facility] History of Present illness Narrative* Yordan Feliz MD - 08/23/2022 12:00 AM EST MANISH ROOT [id number] 08/23/2022 [facility] Department of Radiation Oncology Treatment Planning [...] Feliz M.D. 0:14 AM documented in this encounterAvita Health [facility]02-[facility]-2023 Miscellaneous Notes* Telephone Encounter - Rafael Meng RN - 08/21/2022 3:16 PM EST Pt will be in on for education (Cisplatin). Scripts for antiemetics pended. Miguel A: Please place chemotherapy orders. Thanks! Rafael Meng RN documented in this encounterAvita [facility] History of Present illness Narrative* Dee Gil RD - 08/20/2022 7:27 AM EST Oncology [...] UBW: 216# (98.2#) - pt states Fall 2021 Comments: pt reports he is unsure of timeframe of weight loss as he noticed he was losing weight end of last year and then also started following a Keto diet along side his significant other beginning of this year. Dosing Weight: 84.7 kg Estimated kilocalorie needs: 5537-8503 kilocalories determined by 25-30 kcal/kg Estimated protein needs: 85-102 grams determined by 1.0-1.2 g/kg Dosing weight Estimated fluid needs: ~9237-4602 milliliters based on 1 mL per kcal [...] with Patient: 30 minutes Signed by: Dee Gil MS, RDN, LD documented in this encounterAvita [facility]02-[facility]-2023 Instructions* Patient Instructions* John England MD - 08/16/2022 4:45 PM EST Will plan Cisplatin weekly to start with radiation Needs labs next visit at time of Sim. RTC prior to start Consent signed Needs education documented in this encounterAvita Health [facility]02-[facility]-2023 History of Present illness Narrative* John England MD - 08/16/2022 4:06 PM EST Images from the original note were not included. NAME: Manish Root NO.: [id number] DATE OF SERVICE: August 16, 2022 Referring [...] Ca Stage 3 - 2/5 LN + [place] regimen on protocol Initial Visit, August 16, [...] which included preparing to see the patient, lkuv-ex-qzvg patient care, completing clinical documentation, performing a medically appropriate examination, counseling and educating the patient/family/caregiver, ordering medications, tests, or p rocedures, communicating with other HCPs (not separately reported), independently interpreting results (not separately reported), and care coordination (not separately reported). John England MD, CPE Hematology and Oncology Services Provided at: [place], [place] CC: MD Serene Mcclendon MD documented in this encounterAvita Health [facility]02-[facility]-2023 Miscellaneous Notes* Telephone Encounter - Mandyricci Brooks - 08/15/2022 1:14 PM EST Patient called back and said that he is scheduled at [facility] in [place], [place] 08/15/22. Dental evaluation form has been faxed to: [phone]. Randal Brooks * Telephone Encounter - Randal Brooks - 08/15/2022 11:47 AM EST Patient has been scheduled for dental appointment at [facility] on 09/04. Due to the nature of request, patient has also been placed on a cancellation list if a soon appointment becomes available. Called patient, LMOV with detailed information. Randal Brooks * Telephone Encounter - Nela Samayoa RN - 08/15/2022 10:10 AM EST E- order has been signed. Nela Samayoa RN * Telephone Encounter - Nela Samayoa RN - 08/15/2022 9:56 AM EST [facility] will need referral placed to see pt and schedule dental eval for clearance. Dr Dave- can you please sign in Dr Feliz's absence? Thank you Nela Samayoa RN documented in this encounterAvita [facility] History of Present illness Narrative* Yordan Feliz MD - 08/14/2022 2:34 PM EST [...] voice changes that his family noticed at [facility], and he has had approximate 11 pound [...] the lung. Would recommend concurrent radiation with [place] based chemotherapy. Patient is eligible for current [...] by: Yordan Feliz MD cc: Mannie Nelson [address] [place] [address] Serene Morales MD [address] [place] [id number] documented in this encounterAvita [facility]02[facility]23 Nurse Note* Nela Samayoa RN - 08/14/2022 10:58 AM EST Radiation Therapy - Patient Education Note PATIENT NAME: Manish Root PATIENT August 14, 2022 [facility] FACILITY[facility]LOCATION: Critical access hospital READINESS TO LEARN Cognitive Ability: Alert and [...] by: Nela Samayoa RN documented in this encounterAvita [facility]01-24-2023 NoteOPERATIVE NOTE OPERATION DATE: 07/31/2022 PRIMARY CARE [...] to the recovery room in good condition.[facility] [id number] NoteOPERATIVE NOTE OPERATION DATE: 07/18/2022 PREOPERATIVE DIAGNOSIS: [...] on the pathology results. CC: Patient's family physicianThe [facility] Hospital [id number] NoteChief Complaint consultation for colon recall [facility] Staff 76 year old male presents on [...] cancer History of colon polyps History of CO (myocardial infarction) HTN (hypertension) Hypercholesterolemia OJEDA (nonalcoholic [...] Oral, Daily ergocalciferol 50,000 intl units Cap, 47510 International_Unit= 1 cap(s), Oral, qWeek fenofibrate 134 [...] 06/13/2022 Family History Patient (more content not included)...[facility]tering HealthComment on above:Result Comment: Electronically Signed By: JAQUAN WELCH, Renea Anderson\Date and Time Signed: 06/13/22 15:31 [id number] History of Past illness Narrative* Problem Noted Date Resolved Date 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/28/20 15 04/28/2015 documented as of this encounter (statuses as of 08/14/2022) [address]22-2015 History of Past illness Narrative* Problem Noted Date Resolved Date 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/28/20 15 04/28/2015 documented as of this encounter (statuses as of 08/14/2022) [address]22-2015 History of Past illness Narrative* Problem Noted Date Resolved Date 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/28/20 15 04/28/2015 documented as of this encounter (statuses as of 08/15/2022) [address]22-2015 History of Past illness Narrative* Problem Noted Date Resolved Date 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/28/20 15 04/28/2015 documented as of this encounter (statuses as of 08/17/2022) [address]22-2015 History of Past illness Narrative* Problem Noted Date Resolved Date 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/28/20 15 04/28/2015 documented as of this encounter (statuses as of 08/20/2022) [address]22-2015 History of Past illness Narrative* Problem Noted Date Resolved Date 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/28/20 15 04/28/2015 documented as of this encounter (statuses as of 08/22/2022) [address]22-2015 History of Past illness Narrative* Problem Noted Date Resolved Date 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/28/20 15 04/28/2015 documented as of this encounter (statuses as of 08/22/2022) [address]22-2015 History of Past illness Narrative* Problem Noted Date Resolved Date 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/28/20 15 04/28/2015 documented as of this encounter (statuses as of 08/24/2022) [address]22-2015 History of Past illness Narrative* Problem Noted Date Resolved Date 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/28/20 15 04/28/2015 documented as of this encounter (statuses as of 08/24/2022) [address] History of Past illness Narrative* Problem Noted Date Resolved Date 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/28/20 15 04/28/2015 documented as of this encounter (statuses as of 08/27/2022) [address] History of Past illness Narrative* Problem Noted Date Resolved Date 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/28/20 15 04/28/2015 documented as of this encounter (statuses as of 08/27/2022) [address] History of Past illness Narrative* Problem Noted Date Resolved Date 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/28/20 15 04/28/2015 documented as of this encounter (statuses as of 08/28/2022) [address] History of Past illness Narrative* Problem Noted Date Resolved Date 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/28/20 15 04/28/2015 documented as of this encounter (statuses as of 08/29/2022) [address] History of Past illness Narrative* Problem Noted Date Resolved Date 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/28/20 15 04/28/2015 documented as of this encounter (statuses as of 09/03/2022) [address] History of Past illness Narrative* Problem Noted Date Resolved Date 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/28/20 15 04/28/2015 documented as of this encounter (statuses as of 09/03/2022) [address] History of Past illness Narrative* Problem Noted Date Resolved Date 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/28/20 15 04/28/2015 documented as of this encounter (statuses as of 09/04/2022) [address] History of Past illness Narrative* Problem Noted Date Resolved Date 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/28/20 15 04/28/2015 documented as of this encounter (statuses as of 09/06/2022) [address] History of Past illness Narrative* Problem Noted Date Resolved Date 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/28/20 15 04/28/2015 documented as of this encounter (statuses as of 09/07/2022) [address] History of Past illness Narrative* Problem Noted Date Resolved Date 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/28/20 15 04/28/2015 documented as of this encounter (statuses as of 09/10/2022) [address] History of Past illness Narrative* Problem Noted Date Resolved Date 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/28/20 15 04/28/2015 documented as of this encounter (statuses as of 09/10/2022) [address] History of Past illness Narrative* Problem Noted Date Resolved Date 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/28/20 15 04/28/2015 documented as of this encounter (statuses as of 09/11/2022) [address] History of Past illness Narrative* Problem Noted Date Resolved Date 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/28/20 15 04/28/2015 documented as of this encounter (statuses as of 09/17/2022) [address] History of Past illness Narrative* Problem Noted Date Resolved Date 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/28/20 15 04/28/2015 documented as of this encounter (statuses as of 09/18/2022) [address] History of Past illness Narrative* Problem Noted Date Resolved Date 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/28/20 15 04/28/2015 documented as of this encounter (statuses as of 09/21/2022) [address] History of Past illness Narrative* Problem Noted Date Resolved Date 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/28/20 15 04/28/2015 documented as of this encounter (statuses as of 09/24/2022) [address] History of Past illness Narrative* Problem Noted Date Resolved Date 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/28/20 15 04/28/2015 documented as of this encounter (statuses as of 10/01/2022) [address] History of Past illness Narrative* Problem Noted Date Resolved Date 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/28/20 15 04/28/2015 documented as of this encounter (statuses as of 10/03/2022) [address] History of Past illness Narrative* Problem Noted Date Resolved Date 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/28/20 15 04/28/2015 documented as of this encounter (statuses as of 10/05/2022) [address] History of Past illness Narrative* Problem Noted Date Resolved Date 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/28/20 15 04/28/2015 documented as of this encounter (statuses as of 10/08/2022) [address] History of Past illness Narrative* Problem Noted Date Resolved Date 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/28/20 15 04/28/2015 documented as of this encounter (statuses as of 10/09/2022) [address] History of Past illness Narrative* Problem Noted Date Resolved Date 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/28/20 15 04/28/2015 documented as of this encounter (statuses as of 10/11/2022) [address] History of Past illness Narrative* Problem Noted Date Resolved Date 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/28/20 15 04/28/2015 documented as of this encounter (statuses as of 10/15/2022) [facility] History of Past illness Narrative* Problem Noted Date Resolved Date 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/28/20 15 04/28/2015 documented as of this encounter (statuses as of 10/19/2022) [address] History of Past illness Narrative* Problem Noted Date Resolved Date 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/28/20 15 04/28/2015 documented as of this encounter (statuses as of 10/20/2022) [address] History of Past illness Narrative* Problem Noted Date Resolved Date 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/28/20 15 04/28/2015 documented as of this encounter (statuses as of 10/26/2022) [address] History of Past illness Narrative* Problem Noted Date Resolved Date 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/28/20 15 04/28/2015 documented as of this encounter (statuses as of 2022) [address] History of Past illness Narrative* Problem Noted Date Resolved Date 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/28/20 15 04/28/2015 documented as of this encounter (statuses as of 2022) [address] History of Past illness Narrative* Problem Noted Date Resolved Date 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/28/20 15 04/28/2015 documented as of this encounter (statuses as of 2022) [address] History of Past illness Narrative* Problem Noted Date Resolved Date 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/28/20 15 04/28/2015 documented as of this encounter (statuses as of 11/07/2022) [address] History of Past illness Narrative* Problem Noted Date Resolved Date 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/28/20 15 04/28/2015 documented as of this encounter (statuses as of 11/07/2022) [address] History of Past illness Narrative* Problem Noted Date Resolved Date 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/28/20 15 04/28/2015 documented as of this encounter (statuses as of 12/04/2022) [address] History of Past illness Narrative* Problem Noted Date Diagnosed Date Resolved Date 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 04/28/2015 documented as of this encounter (statuses as of 02/06/2023) [address] History of Past illness Narrative* Problem Noted Date Diagnosed Date Resolved Date 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 04/28/2015 documented as of this encounter (statuses as of 02/06/2023) [address] History of Past illness Narrative* Problem Noted Date Diagnosed Date Resolved Date 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 04/28/2015 documented as of this encounter (statuses as of 02/11/2023) [address] History of Past illness Narrative* Problem Noted Date Diagnosed Date Resolved Date 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 04/28/2015 documented as of this encounter (statuses as of 03/20/2023) [address] History of Past illness Narrative* Problem Noted Date Diagnosed Date Resolved Date 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 04/28/2015 documented as of this encounter (statuses as of 05/15/2023) [address] History of Past illness Narrative* Problem Noted Date Diagnosed Date Resolved Date 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 04/28/2015 documented as of this encounter (statuses as of 10/17/2023) [facility] No data available for this section General Surgery [place] Evaluation note* Diagnosis 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, unspecified onsite health coach and neck cancer (HCC) Malignant neoplasm of head, face, and [facility] 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, unspecified site [facility] Diagnosis 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) [facility] Diagnosis 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, unspecified site [facility] Diagnosis 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, unspecified site [facility] Diagnosis 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 [facility] [...] tongue (HCC) [facility] [...] tongue (HCC) [facility] Diagnosis 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 [facility] Diagnosis 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 [facility] Diagnosis Head and neck cancer (HCC)- Primary Malignant neoplasm of head, face, and neck [facility] Diagnosis 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 Cancer of base of tongue (HCC) Malignant neoplasm of base of tongue [facility] Diagnosis Head and neck cancer (HCC)- [...] [facility] Diagnosis Head and neck cancer (HCC)- Primary Malignant neoplasm of head, face, and neck [facility] Diagnosis 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 Stage 3 chronic kidney disease, unspecified whether stage 3a or 3b CKD (HCC) [facility] 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 [facility] Diagnosis Hyperlipidemia, unspecified hyperlipidemia type- Primary Type 2 diabetes mellitus without complication, unspecified whether terminal gauger insulin use (HCC) Unspecified essential hypertension [facility] Diagnosis 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 Lung nodules Other nonspecific abnormal finding of lung field [facility] Diagnosis Lung nodule seen on imaging study- Primary Solitary pulmonary nodule 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 [facility] Diagnosis 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 [facility] Diagnosis Other specified disorders of thyroid- Primary [facility] Diagnosis 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) Procedures NM PET/CT SKULL-THIGH SUBSEQUENT PET IMAGING CT ATTENUATION SKULL BASE MID-THIGH Yordan Feliz MD [address] [place] [address] [place] [address] Molecular & Functional Imaging [address] [place] [address] Referral ID Status Reason Start Date Expiration Date Visits Requested Visits Authorized [id number] Authorized Auto-Generat ed Referral 01/28/2023 12/28/2023 1 1 [facility] Summary Purpose Family History No Family History Records FoundNo Family History Records FoundNo Family History Records FoundNo Family History Records Found Advance Directives No Advanced Directives Records Found Advance Directive Response Recorded Date/ Time Advance Directives No January 13 1:22pm Reason for Referral 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) Mass of right lung Procedures CT CHEST W IVCON DIAGNOSTIC COMPUTED TOMOGRAPHY THORAX W/CONTRAST John England MD [address] [place] [address] [place] [address] Ct Imaging [place] [address] Referral ID Status Reason Start Date Expiration Date Visits Requested Visits Authorized [id number] Authorized Auto-Generat ed Referral 04/18/2024 1 1 Specialty Diagnoses / Procedures Referred By Contac t Referred To Contact CT IMAGING Diagnoses Lung nodules Procedures CT CHEST W IVCON DIAGNOSTIC COMPUTED TOMOGRAPHY THORAX W/CONTRAST John England MD [address] [place] [address] [place] [address] Ct Imaging Referral ID Status Reason Start Date Expiration Date Visits Requested Visits Authorized [id number] Authorized Auto-Generat ed Referral 03/13/2023 03/07/2024 1 1 Specialty Diagnoses / Procedures Referred By Contac t Referred To Contact Diagnoses Tongue cancer (HCC) Procedures CT SIM PLANNING RADIATION ONCOLOGY THER RAD SIMULAJ-AIDED FIELD SETTING COMPLEX Yordan Feliz MD [address] [place] [address] [place] [address] Referral ID Status Reason Start Date Expiration Date Visits Requested Visits Authorized [id number] Pending Review PCP Requested Referral 08/23/2022 11/21/2022 1 1 Specialty Diagnoses / Procedures Referred By Contac t Referred To Contact Dentistry Diagnoses Tongue cancer (HCC) Procedures CONSULT TO DENTISTRY OFFICE/OUTPATIENT [facility] 60-74 MINUTES Travis Dave MD [address] [place] [address] [place] [address] Referral ID Status Reason Start Date Expiration Date Visits Requested Visits Authorized [id number] Pending Review PCP Requested Referral 08/15/2022 08/15/2023 1 1 Specialty Diagnoses / Procedures Referred By Contac t Referred To Contact Oncology Diagnoses Head and neck cancer (HCC) Procedures CONSULT TO ONCOLOGY OFFICE/OUTPATIENT [facility] MDM 60-74 MINUTES Yordan Feliz MD [address] [place] [address] [place] [address] Referral ID Status Reason Start Date Expiration Date Visits Requested Visits Authorized [id number] Authorized PCP Requested Referral 08/14/2022 08/14/2023 1 1 Specialty Diagnoses / Procedures Referred By Contac t Referred To Contact MOLECULAR & FUNCTIONAL IMAGING Diagnoses Tongue cancer (HCC) Head and neck cancer (HCC) Procedures NM PET/CT SKULL-THIGH INITIAL PET IMAGING CT ATTENUATION SKULL BASE MID-THIGH Yordan Feliz MD [address] [place] [address] [place] [address] Molecular & Functional Imaging [address] [place] [address] Referral ID Status Reason Start Date Expiration Date Visits Requested Visits Authorized [id number] Pending Review Auto-Generat ed Referral 08/14/2022 09/13/2023 [...] 8 mg, INTRAVENOUS, ONCE, 1 dose, On 10/08/22 at 1130 Given 10/08/2022 1:13 PM EDT 8 mg Inactive Administered Medications - up to 3 most recent administrations Medication Order MAR Action Action Date Dose Rate Site NaCl 0.9% 500 mL INTRAVENOUS, at 999 mL/hr, Administer over 0.5 Hours, ONCE, 1 dose, On Sat10/31/22 at 1600 New Bag/Syringe/Bottle 10/31/2022 2:44 PM EDT 999 mL/hr Chief Complaint and Reason for Visit Chief Complaint Plugged ears Additional Source Comments Patient Care team informatio n (unrecognized section and content) Manager Privacy Relationship Specialty Start Date End Date Mannie Nelson MD [address] [place] [phone] PCP - General Family Medicine 11/16/11 Manager Privacy Relationship Specialty Start Date End Date Mannie Nelson MD [address] [place] [phone] PCP - General Family Medicine 11/16/11 Manager Privacy Relationship Specialty Start Date End Date Mannie Nelson MD [address] [place] [phone] PCP - General Family Medicine 11/16/11 Manager Privacy Relationship Specialty Start Date End Date Mannie Nelson MD [address] [place] [phone] PCP - General Family Medicine 11/16/11 Manager Privacy Relationship Specialty Start Date End Date Mannie Nelson MD [address] [place] [phone] PCP - General Family Medicine 11/16/11 Dee Gil, RD [address] [place] [address] [place] [address] Registered Dietitian Nutrition 08/20/22 Manager Privacy Relationship Specialty Start Date End Date Mannie Nelson MD [address] [place] [facility] [place] [address] PCP - General Family Medicine 11/16/11 Dee Gil, KARLOS [address] [place] [address] Registered Dietitian Nutrition 08/20/22 John England MD [address] [place] [address] Physician Hematology/Oncology 08/21/22 Maryam Hodgson, TELEPHONE OPERATOR RECEPTIONIST.LEAD CONSULTANT [address] [place] [address] Nurse Practitioner Hematology/Oncology 08/21/22 Rafael Meng, [place] [address] [place] [address] Specialty Taping Supervisor Hematology/Oncology 08/21/22 Yordan Feliz MD [address] [place] [address] Physician Radiation Oncology 08/21/22 Manager Privacy Relationship Specialty Start Date End Date Mannie Nelson MD [address] [place] [facility] [place] [address] PCP - General Family Medicine 11/16/11 Dee Gil, KARLOS [address] [place] [address] Registered Dietitian Nutrition 08/20/22 John Egnland MD [address] [place] [address] Physician Hematology/Oncology 08/21/22 Maryam Hodgson, TELEPHONE OPERATOR RECEPTIONIST.LEAD CONSULTANT [address] [place] [address] Nurse Practitioner Hematology/Oncology 08/21/22 Rafael Meng, [place] [address] [place] [address] Specialty Taping Supervisor Hematology/Oncology 08/21/22 Yordan Feliz MD [address] [place] [address] Physician Radiation Oncology 08/21/22 Manager Privacy Relationship Specialty Start Date End Date Mannie Nelson MD [address] [place] [address] PCP - General Family Medicine 11/16/[address] [place] [address] Registered Dietitian Nutrition 08/20/22 John England MD [address] [place] [address] Physician Hematology/Oncology 08/21/22 Maryam Hodgson, TELEPHONE OPERATOR RECEPTIONIST.LEAD CONSULTANT [address] [place] [address] Nurse Practitioner Hematology/Oncology 08/21/22 Rafael Mneg, [place] [address] [place] [address] Specialty Taping Supervisor Hematology/Oncology 08/21/22 Yordan Feliz MD [address] [place] [address] Physician Radiation Oncology 08/21/22 Manager Privacy Relationship Specialty Start Date End Date Mannie Nelson MD [address] [place] [facility] [place] [address] PCP - General Family Medicine 11/16/[address] [place] [address] Registered Dietitian Nutrition 08/20/22 John England MD [address] [place], [place] [id number] Physician Hematology/Oncology 08/21/22 Maryam Hodgson, TELEPHONE OPERATOR RECEPTIONIST.LEAD CONSULTANT [address] [place] [address] Nurse Practitioner Hematology/Oncology 08/21/22 Rafael Meng, RN [address] [place] [address] Specialty Taping Supervisor Hematology/Oncology 08/21/22 Yordan Feliz MD [address] [place] [address] Physician Radiation Oncology 08/21/22 Manager Privacy Relationship Specialty Start Date End Date Mannie Nelson MD [address] [place] [address] PCP - General Family Medicine 11/16/11 Dee Gil, KARLOS [address] [place] [address] Registered Dietitian Nutrition 08/20/22 John England MD [address] [place] [address] Physician Hematology/Oncology 08/21/22 Maryam Hodgson, TELEPHONE OPERATOR RECEPTIONIST.LEAD CONSULTANT [address] [place] [address] Nurse Practitioner Hematology/Oncology 08/21/22 Rafael Meng, RN [address] [place] [address] Specialty Taping Supervisor Hematology/Oncology 08/21/22 Yordan Feliz MD [address] [place] [address] Physician Radiation Oncology 08/21/22 Manager Privacy Relationship Specialty Start Date End Date Mannie Nelson MD [address] [place] [address] PCP - General Family Medicine 11/16/[address] [place] [address] Registered Dietitian Nutrition 08/20/22 John England MD [address] [place] [address] Physician Hematology/Oncology 08/21/22 Maryam Hodgson, TELEPHONE OPERATOR RECEPTIONIST.LEAD CONSULTANT [address] [place] [address] Nurse Practitioner Hematology/Oncology 08/21/22 Rafael Meng, [place] [address] [place] [address] Specialty Taping Supervisor Hematology/Oncology 08/21/22 Yordan Feliz MD [address] [place] [address] Physician Radiation Oncology 08/21/22 Manager Privacy Relationship Specialty Start Date End Date Mannie Nelson MD [address] [place] [address] PCP - General Family Medicine 11/16/11 Manager Privacy Relationship Specialty Start Date End Date Mannie Nelson MD [address] [place] [facility] [place] [address] PCP - General Family Medicine 11/16/[address] [place] [address] Registered Dietitian Nutrition 08/20/22 John England MD [address] [place] [address] Physician Hematology/Oncology 08/21/22 Maryam Hodgson, TELEPHONE OPERATOR RECEPTIONIST.LEAD CONSULTANT [address] [place] [address] Nurse Practitioner Hematology/Oncology 08/21/22 Rafael Meng, RN [address] [place] [address] Specialty Taping Supervisor Hematology/Oncology 08/21/22 Yordan Feliz MD [address] [place] [address] Physician Radiation Oncology 08/21/22 Manager Privacy Relationship Specialty Start Date End Date Mannie Nelson MD [address] [place] [address] PCP - General Family Medicine 11/16/11 Dee Gil, KARLOS [address] [place] [address] Registered Dietitian Nutrition 08/20/22 John England MD [address] [place] [address] Physician Hematology/Oncology 08/21/22 Maryam Hodgson, TELEPHONE OPERATOR RECEPTIONIST.LEAD CONSULTANT [address] [place] [address] Nurse Practitioner Hematology/Oncology 08/21/22 Rafael Meng, RN [address] [place] [address] Specialty Taping Supervisor Hematology/Oncology 08/21/22 Yordan Feliz MD [address] [place] [address] Physician Radiation Oncology 08/21/22 Manager Privacy Relationship Specialty Start Date End Date Mannie Nelson MD [address] [place] [address] PCP - General Family Medicine 11/16/[address] [place] [address] Registered Dietitian Nutrition 08/20/22 John England MD [address] [place] [address] Physician Hematology/Oncology 08/21/22 Maryam Hodgson, TELEPHONE OPERATOR RECEPTIONIST.LEAD CONSULTANT [address] [place] [address] Nurse Practitioner Hematology/Oncology 08/21/22 Rafael Meng, [place] [address] [place] [address] Specialty Taping Supervisor Hematology/Oncology 08/21/22 Yordan Feliz MD [address] [place] [address] Physician Radiation Oncology 08/21/22 Manager Privacy Relationship Specialty Start Date End Date Mannie Nelson MD [address] [place] [address] PCP - General Family Medicine 11/16/[address] [facility] [address] Registered Dietitian Nutrition 08/20/22 John England MD [address] [place] [address] Physician Hematology/Oncology 08/21/22 Maryam Hodgson, TELEPHONE OPERATOR RECEPTIONIST.[address] [place] [address] Nurse Practitioner Hematology/Oncology 08/21/22 Rafael Meng, [place] [address] [place] [address] Specialty Taping Supervisor Hematology/Oncology 08/21/22 Yordan Feliz MD [address] [place] [address] [place] [address] Physician Radiation Oncology 08/21/22 Manager Privacy Relationship Specialty Start Date End Date Mannie Nelson MD [address] [place] [address] PCP - General Family Medicine 11/16/[address] [place] [address] Registered Dietitian Nutrition 08/20/22 John England MD [address] [place] [address] [place] [address] Physician Hematology/Oncology 08/21/22 Maryam Hodgson TELEPHONE OPERATOR RECEPTIONIST.[facility] [address] [place] [address] Nurse Practitioner Hematology/Oncology 08/21/22 Rafael Meng, [place] [address] [place] [address] [place] [address] Specialty Taping Supervisor Hematology/Oncology 08/21/22 Yordan Feliz MD [address] [place] [address] Physician Radiation Oncology 08/21/22 Marysol Purvis LSW Director Of Event Management 09/07/22 Manager Privacy Relationship Specialty Start Date End Date Mannie Nelson MD [address] [place] [address] PCP - General Family Medicine 11/16/11 Dee Gil, KARLOS [address] [place] [address] Registered Dietitian Nutrition 08/20/22 John England MD [address] [place] [address] Physician Hematology/Oncology 08/21/22 Maryam Hodgson, TELEPHONE OPERATOR RECEPTIONIST.LEAD CONSULTANT [address] [place] [address] Nurse Practitioner Hematology/Oncology 08/21/22 Rafael Meng, RN [address] [place] [address] Specialty Taping Supervisor Hematology/Oncology 08/21/22 Yordan Feliz MD [address] [place] [address] Physician Radiation Oncology 08/21/22 Marysol Purvis LSW Director Of Event Management 09/07/22 Manager Privacy Relationship Specialty Start Date End Date Mannie Nelson MD [address] [facility] [place] [address] PCP - General Family Medicine 11/16/[address] [place] [address] Registered Dietitian Nutrition 08/20/22 John England MD [address] [place] [address] Physician Hematology/Oncology 08/21/22 Maryam Hodgson, TELEPHONE OPERATOR RECEPTIONIST.LEAD CONSULTANT [address] [place] [address] Nurse Practitioner Hematology/Oncology 08/21/22 Rafael Meng, RN [address] [place] [address] Specialty Taping Supervisor Hematology/Oncology 08/21/22 Yordan Feliz MD [address] [place] [address] Physician Radiation Oncology 08/21/22 Marysol Purvis LSW Director Of Event Management 09/07/22 Manager Privacy Relationship Specialty Start Date End Date Mannie Nelson MD [address] [place] [facility] [place] [address] PCP - General Family Medicine 11/16/[address] [place] [address] Registered Dietitian Nutrition 08/20/22 John England MD [address] [place] [address] Physician Hematology/Oncology 08/21/22 Maryam Hodgson, TELEPHONE OPERATOR RECEPTIONIST.LEAD CONSULTANT [address] [place] [address] Nurse Practitioner Hematology/Oncology 08/21/22 Rafael Meng, [place] [address] [place] [address] Specialty Taping Supervisor Hematology/Oncology 08/21/22 Yordan Feliz MD [address] [place] [address] Physician Radiation Oncology 08/21/22 Marysol Purvis LSW Director Of Event Management 09/07/22 Manager Privacy Relationship Specialty Start Date End Date Mannie Nelson MD [address] [place] [facility] [place] [address] PCP - General Family Medicine 11/16/11 Dee Gil, KARLOS [address] [place] [address] Registered Dietitian Nutrition 08/20/22 John England MD [address] [place] [address] Physician Hematology/Oncology 08/21/22 Maryam Hodgson, TELEPHONE OPERATOR RECEPTIONIST.LEAD CONSULTANT [address] [place] [address] Nurse Practitioner Hematology/Oncology 08/21/22 Rafael Meng, [place] [address] [place] [address] Specialty Taping Supervisor Hematology/Oncology 08/21/22 Yordan Feliz MD [address] [place] [address] Physician Radiation Oncology 08/21/22 Marysol Purvis LSW Director Of Event Management 09/07/22 Manager Privacy Relationship Specialty Start Date End Date Mannie Nelson MD [address] [place] [address] PCP - General Family Medicine 11/16/11 Dee Gil, KARLOS [address] [place] [address] Registered Dietitian Nutrition 08/20/22 John England MD [address] [place] [address] Physician Hematology/Oncology 08/21/22 Maryam Hodgson, TELEPHONE OPERATOR RECEPTIONIST.LEAD CONSULTANT [address] [place] [address] Nurse Practitioner Hematology/Oncology 08/21/22 Rafael Meng, [place] [address] [place] [address] Specialty Taping Supervisor Hematology/Oncology 08/21/22 Yordan Feliz MD [address] [place] [address] Physician Radiation Oncology 08/21/22 Marysol Purvis LSW Director Of Event Management 09/07/22 Manager Privacy Relationship Specialty Start Date End Date Mannie Nelson MD [address] [place] [address] PCP - General Family Medicine 11/16/[address] [place] [address] Registered Dietitian Nutrition 08/20/22 John England MD [address] [place] [address] Physician Hematology/Oncology 08/21/22 Maryam Hodgson, TELEPHONE OPERATOR RECEPTIONIST.LEAD CONSULTANT [address] [place] [address] Nurse Practitioner Hematology/Oncology 08/21/22 Rafael Meng, [place] [address] [place] [address] Specialty Taping Supervisor Hematology/Oncology 08/21/22 Yordan Feliz MD [address] [place] [address] Physician Radiation Oncology 08/21/22 Marysol Purvis LSW Director Of Event Management 09/07/22 Manager Privacy Relationship Specialty Start Date End Date Mannie Nelson MD [address] [place] [address] PCP - General Family Medicine 11/16/[address] [place] [address] Registered Dietitian Nutrition 08/20/22 John England MD [address] [place], [place] [address] Physician Hematology/Oncology 08/21/22 Maryam Hodgson, TELEPHONE OPERATOR RECEPTIONIST.LEAD CONSULTANT [address] [place] [address] Nurse Practitioner Hematology/Oncology 08/21/22 Rafael Meng, RN [address] [place] [address] Specialty Taping Supervisor Hematology/Oncology 08/21/22 Yordan Feliz MD [address] [place] [address] Physician Radiation Oncology 08/21/22 Marysol Purvis LSW Director Of Event Management 09/07/22 Manager Privacy Relationship Specialty Start Date End Date Mannie Nelson MD [address] [place] [address] PCP - General Family Medicine 11/16/11 Dee Gil, RD [address] [place] [address] Registered Dietitian Nutrition 08/20/22 John England MD [address] [place] [address] Physician Hematology/Oncology 08/21/22 Maryam Hodgson, TELEPHONE OPERATOR RECEPTIONIST.LEAD CONSULTANT [address] [place] [address] Nurse Practitioner Hematology/Oncology 08/21/22 Rafael Meng, RN [address] [place] [address] Specialty Taping Supervisor Hematology/Oncology 08/21/22 Yordan Feliz MD [address] [place] [address] Physician Radiation Oncology 08/21/22 Marysol Purvis LSW Director Of Event Management 09/07/22 Manager Privacy Relationship Specialty Start Date End Date Mannie Nelson MD [address] [facility] [place] [address] PCP - General Family Medicine 11/16/11 Dee Gil, KARLOS [address] [place] [address] Registered Dietitian Nutrition 08/20/22 John England MD [address] [place] [address] Physician Hematology/Oncology 08/21/22 Maryam Hodgson, YENY.LEAD CONSULTANT [address] [place] [address] Nurse Practitioner Hematology/Oncology 08/21/22 Rafael Meng, [place] [address] [place] [address] Specialty Taping Supervisor Hematology/Oncology 08/21/22 Yordan Feliz MD [address] [place] [address] Physician Radiation Oncology 08/21/22 Marysol Purvis LSW Director Of Event Management 09/07/22 Manager Privacy Relationship Specialty Start Date End Date Mannie Nelson MD [address] [facility] [place] [address] PCP - General Family Medicine 11/16/11 Dee Gil, KARLOS [address] [place] [address] Registered Dietitian Nutrition 08/20/22 John England MD [address] [place] [address] Physician Hematology/Oncology 08/21/22 Maryam Hodgson, TELEPHONE OPERATOR RECEPTIONIST.[facility] [address] [place] [address] Nurse Practitioner Hematology/Oncology 08/21/22 Rafael Meng, RN [address] [place] [address] Specialty Taping Supervisor Hematology/Oncology 08/21/22 Yordan Feliz MD [address] [place] [address] Physician Radiation Oncology 08/21/22 Marysol Purvis LSW Director Of Event Management 09/07/22 Manager Privacy Relationship Specialty Start Date End Date Mannie Nelson MD [address] [place] [address] PCP - General Family Medicine 11/16/11 Dee Gil, KARLOS [address] [place] [address] Registered Dietitian Nutrition 08/20/22 John England MD [address] [place] [address] Physician Hematology/Oncology 08/21/22 Maryam Hodgson, TELEPHONE OPERATOR RECEPTIONIST.[facility] [address] [place] [address] Nurse Practitioner Hematology/Oncology 08/21/22 Rafael Meng, [place] [address] [place] [address] Specialty Taping Supervisor Hematology/Oncology 08/21/22 Yordan Feliz MD [address] [place] [address] Physician Radiation Oncology 08/21/22 Marysol Purvis LSW Director Of Event Management 09/07/22 Manager Privacy Relationship Specialty Start Date End Date Mannie Nelson MD [address] [place] [facility] [place] [address] PCP - General Family Medicine 11/16/11 Dee Gil, KARLOS [address] [place] [address] Registered Dietitian Nutrition 08/20/22 John England MD [address] [place] [address] Physician Hematology/Oncology 08/21/22 Maryam Hodgson, TELEPHONE OPERATOR RECEPTIONIST.[facility] [address] [place] [address] Nurse Practitioner Hematology/Oncology 08/21/22 Rafael Meng, [place] [address] [place] [address] Specialty Taping Supervisor Hematology/Oncology 08/21/22 Yordan Feliz MD [address] [place] [address] Physician Radiation Oncology 08/21/22 Marysol Purvis LSW Director Of Event Management 09/07/22 Manager Privacy Relationship Specialty Start Date End Date Mannie Nelson MD [address] [place] [place] [address] PCP - General Family Medicine 11/16/[address] [place] [address] Registered Dietitian Nutrition 08/20/22 John England MD [address] [place] [address] Physician Hematology/Oncology 08/21/22 Maryam Hodgson, TELEPHONE OPERATOR RECEPTIONIST.LEAD CONSULTANT [address] [place] [address] Nurse Practitioner Hematology/Oncology 08/21/22 Rafael Meng, RN [address] [place] [address] Specialty Taping Supervisor Hematology/Oncology 08/21/22 Yordan Feliz MD [address] [place] [address] Physician Radiation Oncology 08/21/22 Marysol Purvis LSW Director Of Event Management 09/07/22 Manager Privacy Relationship Specialty Start Date End Date Mannie Nelson MD [address] [place] [address] PCP - General Family Medicine 11/16/11 Dee Gil, KARLOS [address] [place] [address] Registered Dietitian Nutrition 08/20/22 John England MD [address] [place] [address] Physician Hematology/Oncology 08/21/22 Maryam Hodgson, TELEPHONE OPERATOR RECEPTIONIST.LEAD CONSULTANT [address] [place] [address] Nurse Practitioner Hematology/Oncology 08/21/22 Rafael Meng, [place] [address] [place] [address] Specialty Taping Supervisor Hematology/Oncology 08/21/22 Yordan Feliz MD [address] [place] [address] Physician Radiation Oncology 08/21/22 Marysol Purvis LSW Director Of Event Management 09/07/22 Manager Privacy Relationship Specialty Start Date End Date Mannie Nelson MD [address] [place] [facility] [place] [address] PCP - General Family Medicine 11/16/11 Dee Gil, RD [address] [place] [address] Registered Dietitian Nutrition 08/20/22 John England MD [address] [place] [address] Physician Hematology/Oncology 08/21/22 Maryam Hodgson, TELEPHONE OPERATOR RECEPTIONIST.LEAD CONSULTANT [address] [place] [address] Nurse Practitioner Hematology/Oncology 08/21/22 Rafael Meng, [place] [address] [place] [address] Specialty Taping Supervisor Hematology/Oncology 08/21/22 Yordan Feliz MD [address] [place] [address] Physician Radiation Oncology 08/21/22 Marysol Purvis LSW Director Of Event Management 09/07/22 Manager Privacy Relationship Specialty Start Date End Date Mannie Nelson MD [address] [place] [facility] [place] [address] PCP - General Family Medicine 11/16/11 Dee Gil, KARLOS [address] [place] [address] Registered Dietitian Nutrition 08/20/22 John England MD [address] [place] [address] Physician Hematology/Oncology 08/21/22 Maryam Hodgson, TELEPHONE OPERATOR RECEPTIONIST.LEAD CONSULTANT [address] [place] [address] Nurse Practitioner Hematology/Oncology 08/21/22 Rafael Meng, [place] [address] [place] [address] Specialty Taping Supervisor Hematology/Oncology 08/21/22 Yordan Feliz MD [address] [place] [address] Physician Radiation Oncology 08/21/22 Marysol Purvis LSW Director Of Event Management 09/07/22 Manager Privacy Relationship Specialty Start Date End Date Mannie Nelson MD [address] [place] [address] PCP - General Family Medicine 11/16/[address] [place] [address] Registered Dietitian Nutrition 08/20/22 John England MD [address] [place] [address] Physician Hematology/Oncology 08/21/22 Maryam Hodgson, YENY.LEAD CONSULTANT [address] [place] [address] Nurse Practitioner Hematology/Oncology 08/21/22 Rafael Meng, [place] [address] [place] [address] Specialty Taping Supervisor Hematology/Oncology 08/21/22 Yordan Feliz MD [address] [place] [address] Physician Radiation Oncology 08/21/22 Marysol Purvis LSW Director Of Event Management 09/07/22 Manager Privacy Relationship Specialty Start Date End Date Mannie Nelson MD [address] [place] [facility] [place] [address] PCP - General Family Medicine 11/16/11 Dee Gil, KARLOS [address] [place] [address] Registered Dietitian Nutrition 08/20/22 John England MD [address] [place] [address] Physician Hematology/Oncology 08/21/22 Maryam Hodgson, TELEPHONE OPERATOR RECEPTIONIST.LEAD CONSULTANT [address] [place] [address] Nurse Practitioner Hematology/Oncology 08/21/22 Rafael Meng, [place] [address] [place] [address] Specialty Taping Supervisor Hematology/Oncology 08/21/22 Yordan Feliz MD [address] [place] [address] Physician Radiation Oncology 08/21/22 Marysol Purvis LSW Director Of Event Management 09/07/22 Manager Privacy Relationship Specialty Start Date End Date Mannie Nelson MD [address] [place] [address] PCP - General Family Medicine 11/16/[address] [place] [address] Registered Dietitian Nutrition 08/20/22 John England MD [address] [place] [address] Physician Hematology/Oncology 08/21/22 Maryam Hodgson, TELEPHONE OPERATOR RECEPTIONIST.LEAD CONSULTANT [address] [place] [address] Nurse Practitioner Hematology/Oncology 08/21/22 Rafael Meng, RN [address] [place] [address] Specialty Taping Supervisor Hematology/Oncology 08/21/22 Yordan Feliz MD [address] [place] [address] Physician Radiation Oncology 08/21/22 Marysol Purvis LSW Director Of Event Management 09/07/22 Manager Privacy Relationship Specialty Start Date End Date Mannie Nelson MD [address] [place] [address] PCP - General Family Medicine 11/16/[address] [place] [address] Registered Dietitian Nutrition 08/20/22 John England MD [address] [place] [address] Physician Hematology/Oncology 08/21/22 Maryam Hodgson, TELEPHONE OPERATOR RECEPTIONIST.LEAD CONSULTANT [address] [place] [address] Nurse Practitioner Hematology/Oncology 08/21/22 Rafael Meng, RN [address] [place] [address] Specialty Taping Supervisor Hematology/Oncology 08/21/22 Yordan Feliz MD [address] [place] [address] Physician Radiation Oncology 08/21/22 Marysol Purvis LSW Director Of Event Management 09/07/22 Manager Privacy Relationship Specialty Start Date End Date Mannie Nelson MD [address] [place] [address] PCP - General Family Medicine 11/16/[address] [place], [place] [address] Registered Dietitian Nutrition 08/20/22 John England MD [address] [place], [place] [address] Physician Hematology/Oncology 08/21/22 Maryam Hodgson, TELEPHONE OPERATOR RECEPTIONIST.LEAD CONSULTANT [address] [place] [address] Nurse Practitioner Hematology/Oncology 08/21/22 Rafael Meng, RN [address] [place] [address] Specialty Taping Supervisor Hematology/Oncology 08/21/22 Yordan Feliz MD [address] [place] [address] Physician Radiation Oncology 08/21/22 Marysol Purvis LSW Director Of Event Management 09/07/22 Manager Privacy Relationship Specialty Start Date End Date Mannie Nelson MD [address] [place] [address] PCP - General Family Medicine 11/16/11 Dee Tirado, KARLOS [address] [place] [address] Registered Dietitian Nutrition 08/20/22 John nEgland MD [address] [place] [address] Physician Hematology/Oncology 08/21/22 Maryam Hodgson, TELEPHONE OPERATOR RECEPTIONIST.LEAD CONSULTANT [address] [place] [address] Nurse Practitioner Hematology/Oncology 08/21/22 Rafael Meng, RN [address] [place] [address] Specialty Taping Supervisor Hematology/Oncology 08/21/22 Yordan Feliz MD [address] [place] [address] Physician Radiation Oncology 08/21/22 Marysol Purvis LSW Director Of Event Management 09/07/22 Manager Privacy Relationship Specialty Start Date End Date Shaikh Drake MD [address] [place] [address] PCP - General Primary Care 02/06/[address] [place] [address] Registered Dietitian Nutrition 08/20/22 John England MD [address] [place] [address] Physician Hematology/Oncology 08/21/22 Maryam Hodgson, YENY.LEAD CONSULTANT [address] [place] [address] Nurse Practitioner Hematology/Oncology 08/21/22 Rafael Meng, [place] [address] [place] [address] Specialty Taping Supervisor Hematology/Oncology 08/21/22 Yordan Feliz MD [address] [place] [address] Physician Radiation Oncology 08/21/22 Marysol Purvis LSW Director Of Event Management 09/07/22 Manager Privacy Relationship Specialty Start Date End Date Shaikh Drake MD [address] [place] [address] PCP - General Primary Care 02/06/[address] [place] [address] Registered Dietitian Nutrition 08/20/22 John England MD [address] [place] [address] Physician Hematology/Oncology 08/21/22 Maryam Hodgson, TELEPHONE OPERATOR RECEPTIONIST.LEAD CONSULTANT [address] [place] [address] Nurse Practitioner Hematology/Oncology 08/21/22 Rafael Meng, [place] [address] [place] [address] Specialty Taping Supervisor Hematology/Oncology 08/21/22 Yordan Feliz MD [address] [place] [address] Physician Radiation Oncology 08/21/22 Marysol Purvis LSW Director Of Event Management 09/07/22 Manager Privacy Relationship Specialty Start Date End Date Shaikh Drake MD [address] [place] [address] PCP - General Primary Care 02/06/[address] [place] [address] Registered Dietitian Nutrition 08/20/22 John England MD [address] [place] [address] Physician Hematology/Oncology 08/21/22 Maryam Hodgson, TELEPHONE OPERATOR RECEPTIONIST.LEAD CONSULTANT [address] [facility] [address] Nurse Practitioner Hematology/Oncology 08/21/22 Rafael Meng, [place] [address] [place] [address] Specialty Taping Supervisor Hematology/Oncology 08/21/22 Yordan Feliz MD [address] [place] [address] Physician Radiation Oncology 08/21/22 Marysol Purvis LSW Director Of Event Management 09/07/22 Manager Privacy Relationship Specialty Start Date End Date Shaikh Drake MD [address] [place] [address] PCP - General Primary Care 02/06/[address] [place] [address] [place] [address] Registered Dietitian Nutrition 08/20/22 John England MD [address] [place] [address] [place] [address] Physician Hematology/Oncology 08/21/22 Maryam Hodgson APRN.LEAD CONSULTANT [address] [place] [address] Nurse Practitioner Hematology/Oncology 08/21/22 Rafael Meng, [place] [address] [place] [address] Specialty Taping Supervisor Hematology/Oncology 08/21/22 Yordan Feliz MD [address] [place] [address] Physician Radiation Oncology 08/21/22 Marysol Purvis LSW Director Of Event Management 09/07/22 Manager Privacy Relationship Specialty Start Date End Date Shaikh Drake MD [address] [place] [address] PCP - General Primary Care 02/06/[address] [place], [place] [address] Registered Dietitian Nutrition 08/20/22 John England MD [address] [place] [address] Physician Hematology/Oncology 08/21/22 Maryam Hodgson APRN.LEAD CONSULTANT [address] [place] [address] Nurse Practitioner Hematology/Oncology 08/21/22 Rafael Meng, [place] [address] [place] [address] Specialty Taping Supervisor Hematology/Oncology 08/21/22 Yordan Feliz MD [address] [place] [address] Physician Radiation Oncology 08/21/22 Marysol Purvis LSW Director Of Event Management 09/07/22 Manager Privacy Relationship Specialty Start Date End Date Shaikh Drake MD [address] [place] [address] PCP - General Primary Care 02/06/[address] [place] [address] Registered Dietitian Nutrition 08/20/22 John England MD [address] [place] [address] Physician Hematology/Oncology 08/21/22 Maryam Hodgson, TELEPHONE OPERATOR RECEPTIONIST.LEAD CONSULTANT [address] [place] [address] Nurse Practitioner Hematology/Oncology 08/21/22 Rafael Meng, RN [address] [place] [address] Specialty Taping Supervisor Hematology/Oncology 08/21/22 Yordan Feliz MD [address] [place] [address] Physician Radiation Oncology 08/21/22 Marysol Purvis LSW Director Of Event Management 09/07/22 Manager Privacy Relationship Specialty Start Date End Date Shaikh Drake MD [address] [place] [address] PCP - General Primary Care 02/06/[address] [place] [address] Registered Dietitian Nutrition 08/20/22 John England MD [address] [place] [address] Physician Hematology/Oncology 08/21/22 Maryam Hodgson, TELEPHONE OPERATOR RECEPTIONIST.LEAD CONSULTANT [address] [place] [address] Nurse Practitioner Hematology/Oncology 08/21/22 Rafael Meng, [place] [address] [place] [address] Specialty Taping Supervisor Hematology/Oncology 08/21/22 Yordan Feliz MD [address] [place], [place] [address] [address] Physician Radiation Oncology 08/21/22 Marysol Purvis LSW Director Of Event Management 09/07/22 Team Status: Active Member Role Status Dates Odell Schmidt DO Primary Care Provider Active Team Status: Inactive Member Role Status Dates Michelle Singh APRN Attending Provider Active Start: January 14, 2024 End: January 14, 2024 Odell Schmidt DO Primary Care Provider Active Start: January 14, 2024 End: January 14, 2024 (unrecognized sect ion and content) No Status Records FoundNo Status Records FoundNo Status Records FoundNo Status Records Found INFORMATION SOURCE (unrecogn ized section and content) DATE CREATED AUTHOR 07/31/2022 [facility] DATE CREATED AUTHOR AUTHOR'S ORGANIZ ATION 08/04/2022 [facility] DATE CREATED AUTHOR AUTHOR'S ORGANIZ ATION 11/07/2023 [facility] DATE CREATED AUTHOR AUTHOR'S ORGANIZ ATION 02/26/2024 [facility] EPIC Source Comments (unrecognize d section and content) In the event this informatio n is protected by the Federal Confidentiality of Alcohol and Drug Abuse Patient Records regulations: The Federal rules restrict any use of the information to criminally investigate or prosecute any alcohol or drug abuse patient.[facility] the event this information is protected by the Federal Confidentiality of Alcohol and Drug Abuse Patient Records regulations: The Federal rules restrict any use of the information to criminally investigate or prosecute any alcohol or drug abuse patient.[facility] HospitalIn the event this information is protected by the Federal Confidentiality of Alcohol and Drug Abuse Patient Records regulations: The Federal rules restrict any use of the information to criminally investigate or prosecute any alcohol or drug abuse patient.[facility] HospitalIn the event this information is protected by the Federal Confidentiality of Alcohol and Drug Abuse Patient Records regulations: The Federal rules restrict any use of the information to criminally investigate or prosecute any alcohol or drug abuse patient.[facility] HospitalIn the event this information is protected by the Federal Confidentiality of Alcohol and Drug Abuse Patient Records regulations: The Federal rules restrict any use of the information to criminally investigate or prosecute any alcohol or drug abuse patient.[facility] HospitalIn the event this information is protected by the Federal Confidentiality of Alcohol and Drug Abuse Patient Records regulations: The Federal rules restrict any use of the information to criminally investigate or prosecute any alcohol or drug abuse patient.[facility] HospitalIn the event this information is protected by the Federal Confidentiality of Alcohol and Drug Abuse Patient Records regulations: The Federal rules restrict any use of the information to criminally investigate or prosecute any alcohol or drug abuse patient.[facility] HospitalIn the event this information is protected by the Federal Confidentiality of Alcohol and Drug Abuse Patient Records regulations: The Federal rules restrict any use of the information to criminally investigate or prosecute any alcohol or drug abuse patient.[facility] HospitalIn the event this information is protected by the Federal Confidentiality of Alcohol and Drug Abuse Patient Records regulations: The Federal rules restrict any use of the information to criminally investigate or prosecute any alcohol or drug abuse patient.[facility] HospitalIn the event this information is protected by the Federal Confidentiality of Alcohol and Drug Abuse Patient Records regulations: The Federal rules restrict any use of the information to criminally investigate or prosecute any alcohol or drug abuse patient.[facility] HospitalIn the event this information is protected by the Federal Confidentiality of Alcohol and Drug Abuse Patient Records regulations: The Federal rules restrict any use of the information to criminally investigate or prosecute any alcohol or drug abuse patient.[facility] HospitalIn the event this information is protected by the Federal Confidentiality of Alcohol and Drug Abuse Patient Records regulations: The Federal rules restrict any use of the information to criminally investigate or prosecute any alcohol or drug abuse patient.[facility] HospitalIn the event this information is protected by the Federal Confidentiality of Alcohol and Drug Abuse Patient Records regulations: The Federal rules restrict any use of the information to criminally investigate or prosecute any alcohol or drug abuse patient.[facility] HospitalIn the event this information is protected by the Federal Confidentiality of Alcohol and Drug Abuse Patient Records regulations: The Federal rules restrict any use of the information to criminally investigate or prosecute any alcohol or drug abuse patient.[facility] HospitalIn the event this information is protected by the Federal Confidentiality of Alcohol and Drug Abuse Patient Records regulations: The Federal rules restrict any use of the information to criminally investigate or prosecute any alcohol or drug abuse patient.[facility] HospitalIn the event this information is protected by the Federal Confidentiality of Alcohol and Drug Abuse Patient Records regulations: The Federal rules restrict any use of the information to criminally investigate or prosecute any alcohol or drug abuse patient.[facility] HospitalIn the event this information is protected by the Federal Confidentiality of Alcohol and Drug Abuse Patient Records regulations: The Federal rules restrict any use of the information to criminally investigate or prosecute any alcohol or drug abuse patient.[facility] HospitalIn the event this information is protected by the Federal Confidentiality of Alcohol and Drug Abuse Patient Records regulations: The Federal rules restrict any use of the information to criminally investigate or prosecute any alcohol or drug abuse patient.[facility] HospitalIn the event this information is protected by the Federal Confidentiality of Alcohol and Drug Abuse Patient Records regulations: The Federal rules restrict any use of the information to criminally investigate or prosecute any alcohol or drug abuse patient.[facility] HospitalIn the event this information is protected by the Federal Confidentiality of Alcohol and Drug Abuse Patient Records regulations: The Federal rules restrict any use of the information to criminally investigate or prosecute any alcohol or drug abuse patient.[facility] HospitalIn the event this information is protected by the Federal Confidentiality of Alcohol and Drug Abuse Patient Records regulations: The Federal rules restrict any use of the information to criminally investigate or prosecute any alcohol or drug abuse patient.[facility] HospitalIn the event this information is protected by the Federal Confidentiality of Alcohol and Drug Abuse Patient Records regulations: The Federal rules restrict any use of the information to criminally investigate or prosecute any alcohol or drug abuse patient.[facility] HospitalIn the event this information is protected by the Federal Confidentiality of Alcohol and Drug Abuse Patient Records regulations: The Federal rules restrict any use of the information to criminally investigate or prosecute any alcohol or drug abuse patient.[facility] HospitalIn the event this information is protected by the Federal Confidentiality of Alcohol and Drug Abuse Patient Records regulations: The Federal rules restrict any use of the information to criminally investigate or prosecute any alcohol or drug abuse patient.[facility] HospitalIn the event this information is protected by the Federal Confidentiality of Alcohol and Drug Abuse Patient Records regulations: The Federal rules restrict any use of the information to criminally investigate or prosecute any alcohol or drug abuse patient.[facility] HospitalIn the event this information is protected by the Federal Confidentiality of Alcohol and Drug Abuse Patient Records regulations: The Federal rules restrict any use of the information to criminally investigate or prosecute any alcohol or drug abuse patient.[facility] HospitalIn the event this information is protected by the Federal Confidentiality of Alcohol and Drug Abuse Patient Records regulations: The Federal rules restrict any use of the information to criminally investigate or prosecute any alcohol or drug abuse patient.[facility] HospitalIn the event this information is protected by the Federal Confidentiality of Alcohol and Drug Abuse Patient Records regulations: The Federal rules restrict any use of the information to criminally investigate or prosecute any alcohol or drug abuse patient.[facility] HospitalIn the event this information is protected by the Federal Confidentiality of Alcohol and Drug Abuse Patient Records regulations: The Federal rules restrict any use of the information to criminally investigate or prosecute any alcohol or drug abuse patient.[facility] the event this information is protected by the Federal Confidentiality of Alcohol and Drug Abuse Patient Records regulations: The Federal rules restrict any use of the information to criminally investigate or prosecute any alcohol or drug abuse patient.[facility] HospitalIn the event this information is protected by the Federal Confidentiality of Alcohol and Drug Abuse Patient Records regulations: The Federal rules restrict any use of the information to criminally investigate or prosecute any alcohol or drug abuse patient.[facility] HospitalIn the event this information is protected by the Federal Confidentiality of Alcohol and Drug Abuse Patient Records regulations: The Federal rules restrict any use of the information to criminally investigate or prosecute any alcohol or drug abuse patient.[facility] HospitalIn the event this information is protected by the Federal Confidentiality of Alcohol and Drug Abuse Patient Records regulations: The Federal rules restrict any use of the information to criminally investigate or prosecute any alcohol or drug abuse patient.[facility] HospitalIn the event this information is protected by the Federal Confidentiality of Alcohol and Drug Abuse Patient Records regulations: The Federal rules restrict any use of the information to criminally investigate or prosecute any alcohol or drug abuse patient.[facility] HospitalIn the event this information is protected by the Federal Confidentiality of Alcohol and Drug Abuse Patient Records regulations: The Federal rules restrict any use of the information to criminally investigate or prosecute any alcohol or drug abuse patient.[facility] HospitalIn the event this information is protected by the Federal Confidentiality of Alcohol and Drug Abuse Patient Records regulations: The Federal rules restrict any use of the information to criminally investigate or prosecute any alcohol or drug abuse patient.[facility] HospitalIn the event this information is protected by the Federal Confidentiality of Alcohol and Drug Abuse Patient Records regulations: The Federal rules restrict any use of the information to criminally investigate or prosecute any alcohol or drug abuse patient.[facility] HospitalIn the event this information is protected by the Federal Confidentiality of Alcohol and Drug Abuse Patient Records regulations: The Federal rules restrict any use of the information to criminally investigate or prosecute any alcohol or drug abuse patient.[facility] HospitalIn the event this information is protected by the Federal Confidentiality of Alcohol and Drug Abuse Patient Records regulations: The Federal rules restrict any use of the information to criminally investigate or prosecute any alcohol or drug abuse patient.[facility] HospitalIn the event this information is protected by the Federal Confidentiality of Alcohol and Drug Abuse Patient Records regulations: The Federal rules restrict any use of the information to criminally investigate or prosecute any alcohol or drug abuse patient.[facility] HospitalIn the event this information is protected by the Federal Confidentiality of Alcohol and Drug Abuse Patient Records regulations: The Federal rules restrict any use of the information to criminally investigate or prosecute any alcohol or drug abuse patient.[facility] HospitalIn the event this information is protected by the Federal Confidentiality of Alcohol and Drug Abuse Patient Records regulations: The Federal rules restrict any use of the information to criminally investigate or prosecute any alcohol or drug abuse patient.[facility] HospitalIn the event this information is protected by the Federal Confidentiality of Alcohol and Drug Abuse Patient Records regulations: The Federal rules restrict any use of the information to criminally investigate or prosecute any alcohol or drug abuse patient.[facility] HospitalIn the event this information is protected by the Federal Confidentiality of Alcohol and Drug Abuse Patient Records regulations: The Federal rules restrict any use of the information to criminally investigate or prosecute any alcohol or drug abuse patient.[facility] HospitalIn the event this information is protected by the Federal Confidentiality of Alcohol and Drug Abuse Patient Records regulations: The Federal rules restrict any use of the information to criminally investigate or prosecute any alcohol or drug abuse patient.[facility] HospitalIn the event this information is protected by the Federal Confidentiality of Alcohol and Drug Abuse Patient Records regulations: The Federal rules restrict any use of the information to criminally investigate or prosecute any alcohol or drug abuse patient.[facility] HospitalIn the event this information is protected by the Federal Confidentiality of Alcohol and Drug Abuse Patient Records regulations: The Federal rules restrict any use of the information to criminally investigate or prosecute any alcohol or drug abuse patient.[facility] HospitalIn the event this information is protected by the Federal Confidentiality of Alcohol and Drug Abuse Patient Records regulations: The Federal rules restrict any use of the information to criminally investigate or prosecute any alcohol or drug abuse patient.[facility] HospitalIn the event this information is protected by the Federal Confidentiality of Alcohol and Drug Abuse Patient Records regulations: The Federal rules restrict any use of the information to criminally investigate or prosecute any alcohol or drug abuse patient.[facility] HospitalIn the event this information is protected by the Federal Confidentiality of Alcohol and Drug Abuse Patient Records regulations: The Federal rules restrict any use of the information to criminally investigate or prosecute any alcohol or drug abuse patient.[facility] HospitalIn the event this information is protected by the Federal Confidentiality of Alcohol and Drug Abuse Patient Records regulations: The Federal rules restrict any use of the information to criminally investigate or prosecute any alcohol or drug abuse patient.[facility] HospitalIn the event this information is protected by the Federal Confidentiality of Alcohol and Drug Abuse Patient Records regulations: The Federal rules restrict any use of the information to criminally investigate or prosecute any alcohol or drug abuse patient.[facility] Reason for Visit (unrecogniz ed section and content) Reason Comments Patient Education Reason Comments Consult Specialty Diagnoses / Procedures Referred By Contac t Referred To Contact Radiation Oncology / RADIATION ONCOLOGY Diagnoses Dr. 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 Images requested. Procedures NEW PATIENT RAD ONC [address] [place] [address] Yordan Feliz MD [address] [place] [address] [place] [address] Referral ID Status Reason Start Date Expiration Date Visits Requested Visits Authorized [id number] New Request Financial Clearance Required - OON [...] Visit Specialty Diagnoses / Procedures 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) John England MD [address] [place] [address] [place] [address] Sebastien Treat Jose [address] [place] [address] Referral ID Status Reason Start Date Expiration Date V isits Requested Visits Authorized [id number] Authorized 08/21/2022 11/19/2022 99 99 Reason Comments [...] Cancer Specialty Diagnoses / Procedures Referred By Contac t Referred To Contact Radiation Oncology / RADIATION ONCOLOGY Diagnoses 4 Week Follow Up Patient wanted to coordinate appt with Med Onc Procedures EST POST 90 DAY RAD TX Yordan Feliz MD [address] [place] [address] [place] [address] Yordan Feliz MD [address] [place] [address] [place] [address] Referral ID Status Reason Start Date Expiration Date V isits Requested Visits Authorized [id number] Authorized 11/27/2022 07/07/2023 99 99 Reason Comments Cancer of the base of tongue Reason Comments Head and Neck Cancer Reason Comments Cancer of the base of tongue 1 month fol low up Reason Comments Care Coordination Results Reason Comments 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 [employer] provides no warranty or guarantee of the accuracy or completeness of information in this document.
[2024-03-04 10:36] LABS: Chol HDL Ratio 4.1; Cholesterol 176 mg/dL (<=200); HDL Cholesterol 43 mg/dL (40-60); LDL Cholesterol Calculated 115.8 mg/dL; Triglycerides 86 mg/dL (<=150); VLDL CHOLESTEROL 17.2 mg/dL
== END 2024-03-04 08:32 | disposition home or self-care (01) ==
LOC: LAB 08:32
PROVIDERS: PCP Internal Medicine; Visit Provider Internal Medicine
DX: E78.5 Hyperlipidemia, unspecified (principal)
CPT/HCPCS: 36415; 80061

== ENCOUNTER 2024-04-09 11:16 | Emergency (ER) | payer MEDICARE, SELFPAY ==
[2024-04-09 11:20] VITALS: BP 176/72; PULSE 69; TEMP 36.6; O2SAT 97; BMI 29.3
--- NOTE | 2024-04-09 11:36 | ED_ITS ---
HPI - Skin/Abscess/Foreign Bdy General Chief complaint: Skin/Abscess/Foreign Body Stated complaint: SKIN IRRITATION UPPER RIGHT EXTREMITY Time Seen by Provider: 04/09/24 11:18 Source: patient Mode of arrival: walk-in Limitations: no limitations History of Present Illness HPI narrative: 78-year-old male presents for a painful rash. Its on the tricep area of his right arm and has had it for about a week. He used some Keflex and a steroid cream but it did not go away and now he has 2 small areas on his right upper back that he does not even know where they are but his girlfriend pointed them out. The rash on his tricep area is painful. No drainage. He has not had the shingles vaccine. Related Data Home Medications ?Medication ?Instructions ?Recorded ?Confirmed cephalexin 500 mg capsule 500 mg PO TID 04/09/24 04/09/24 fenofibrate micronized 134 mg 134 mg PO DAILY 04/09/24 04/09/24 capsule metoprolol succinate 25 mg 25 mg PO DAILY 04/09/24 04/09/24 tablet,extended release 24 hr triamcinolone acetonide 0.1 % 1 applic topical TID 04/09/24 04/09/24 topical cream Previous Rx's ?Medication ?Instructions ?Recorded oxycodone-acetaminophen 5 mg-325 1 tab PO Q6H PRN pain #14 tabs 10/15/23 mg tablet (Percocet) valacyclovir 1 gram tablet 1,000 mg PO Q8H 7 days #21 tabs 04/09/24 (Valtrex) Allergies Allergy/AdvReac Type Severity Reaction Status Date / Time No Known Drug Allergies Allergy Verified 04/09/24 11:19 Review of Systems ROS Narrative A ten point review of systems is negative except as noted above. PFSH PFSH Social History Smoking status: Never smoker Little interest or pleasure in doing things: not at all Feeling down, depressed, or hopeless: not at all Exam Narrative Exam Narrative: Nurses note and vital signs reviewed and patient is not hypoxic. General: The patient appears well and in no apparent distress. Patient is resting comfortably on cart. Skin: Warm, dry, no pallor noted. There is erythematous raised rash and some clusters on the right tricep area. This appears to be in the C7 dermatomal distribution and there are 2 similar erythematous raised round areas on the right upper back, also in the C7 dermatome distribution. No rashes present elsewhere. Head: Normocephalic, atraumatic Eye: Normal conjunctiva, no drainage Ears, Nose, Mouth, and Throat: oral mucosa is moist. Nares patent. Cardiovascular: Regular Rate and Rhythm Respiratory: Patient is in no distress, no accessory muscle use, lungs are clear to auscultation, no wheezing, rales or rhonchi Back: non-tender GI: Soft and nontender Musculoskeletal: The patient has no evidence of calf tenderness, no pitting edema, symmetrical pulses noted bilaterally Neurological: A&O, normal speech Psychiatric: Cooperative Constitutional Vital Signs, click to edit/add: Last Vital Signs Temp 97.9 F 04/09/24 11:20 Pulse 69 04/09/24 11:20 Resp 16 04/09/24 11:20 BP 176/72 H 04/09/24 11:20 Pulse Ox 97 04/09/24 11:20 Course Vital Signs Vital signs: Vital Signs Temperature 97.9 F 04/09/24 11:20 Pulse Rate 69 04/09/24 11:20 Respiratory Rate 16 04/09/24 11:20 Blood Pressure 176/72 H 04/09/24 11:20 Pulse Oximetry 97 04/09/24 11:20 Temperature 97.9 F 04/09/24 11:20 Pulse Rate 69 04/09/24 11:20 Respiratory Rate 16 04/09/24 11:20 Blood Pressure 176/72 H 04/09/24 11:20 Pulse Oximetry 97 04/09/24 11:20 MDM - Skin/Abscess/Foreign Bdy MDM Narrative Medical decision making narrative: My clinical impression is that he has herpes zoster and he is prescribed Valtrex even though it has been a week since it started. Treatment diagnosis and follow-up were discussed with the patient. Differential Diagnosis Differential diagnosis: Likely abscess of skin or subcutaneous tissue, herpes zoster, cellulitis and insect bites Discharge Plan Discharge Chief Complaint: Skin/Abscess/Foreign Body Clinical Impression: Herpes zoster Patient Disposition: Home, Self-Care Time of Disposition Decision: 11:35 Condition: Good Mode of Transportation: Private Vehicle Prescriptions / Home Meds: New valacyclovir [Valtrex] 1 gram tablet 1,000 mg PO Q8H 7 Days Qty: 21 0RF No Action oxycodone-acetaminophen [Percocet] 5-325 mg tablet 1 tab PO Q6H PRN (Reason: pain) Qty: 14 0RF cephalexin 500 mg capsule 500 mg PO TID triamcinolone acetonide 0.1 % cream 1 applic TOPICAL TID fenofibrate micronized 134 mg capsule 134 mg PO DAILY metoprolol succinate 25 mg tablet extended release 24 hr 25 mg PO DAILY Print Language: German Instructions: [place] (ED) Referrals: Shaikh Drake MD [Primary Care Provider] - 1 week
--- OUTSIDE RECORDS SUMMARY | 2024-04-09 11:49 | XMS_ITS | CCD ---
Author Organization [facility] CliniSynj Care Team Providers Care Box Order Person Name Role Phone MANNIE NELSON Primary Care Physician Renea PARTIDA Attending Unavailable NILL, Renea Loomis [...] Primary Care Provider Louise EVERETT, Dee Unavailable [phone] Jacquelyn WELCH, John Unavailable [phone] Gokul WATER RESOURCE ENGINEER.YARD LOADER OPERATOR, Maryam Unavailable Paulino HORNER, Rafael Unavailable Yordan Feliz MD Unavailable [phone] Marysol Martinez Unavailable Unavailable Candida RD, Dee Unavailable Vidal WELCH, [facility] Primary Care Provider Candida RD, Dee Unavailable Paulino HORNER, Rafael Unavailable Vidal WELCH, [facility] Primary Care Provider FAWWAD, [facility] Primary Care Unavailable [facility] Primary Care Unavailable ABHYANKAR, JOHN Referring Unavailable [facility] Primary Care Unavailable GOKULMARYAM Referring Unavailable ABHYANKAR, JOHN Attending Unavailable [facility] Primary Care Unavailable ABHYANKAR, JOHN Referring Unavailable [facility] Primary Care Unavailable [facility] Primary Care Unavailable Yordan FELIZ Referring Unavailable [facility] Primary Care Un[facility], [facility] Primary Care Unavailable MARYAM HODGSON Referring Unavailable ABHYANKAR, JOHN Attending Unavailable [facility] Primary Care Unavailable Yordan FELIZ Referring Unavailable Yordan FELIZ Attending Unavailable [facility] Primary Care Unavailable [facility], [facility] Primary Care Unavailable [facility] Primary Care Unavailable MARYAM HODGSON Referring Unavailable ABHYANKAR, JOHN Attending Unavailable [facility] Primary Care Unavailable Yordan FELIZ Referring Unavailable Yordan FELIZ Attending Unavailable [facility] Primary Care Unavailable [facility], [facility] Primary Care Unavailable MARYAM HODGSON Referring Unavailable ABHYANKAR, JOHN Attending Unavailable [facility] Primary Care Unavailable Yordan FELIZ Attending Unavailable [facility] Primary Care Unavailable [facility] Referring Unavailable ABHYANKAR, JOHN Attending Unavailable [facility] Primary Care Unavailable Yordan FELIZ Attending Unavailable TIMMIS, SERENE H Attending Unavailable TIMMIS, SERENE H Attending Unavailable TIMMIS, SERENE H Attending Unavailable TIMMIS, SERENE H Attending Unavailable TIMMIS, SERENE H Attending Unavailable FAWWAD, BOJORQUEZ Referring Unavailable FAWWAD, BOJORQUEZ Attending Unavailable TIMMIS, SERENE H Attending Unavailable FAWWAD, BOJORQUEZ Attending Unavailable FAWWAD, BOJORQUEZ Attending Unavailable TIMMIS, SERENE H Attending Unavailable TIMMIS, SERENE H Attending Unavailable TIMMIS, SERENE H Attending Unavailable TIMMIS, SEREEN H Attending Unavailable Mannie Nelson MD Primary Care Provider Allergies Allergy Classification Reported Allergen(s) Allergy Type Date of Onset Reaction(s) Facility (1 source) No Known Medication Allergies; Translations: [No Known Medication Allergies] Propensity to adverse reactions (disorder) [facility] Repository Medications Current Medications Medication Drug Class(es) [...] ta b 81 mg every other day. Active take 1 tablet by mouth once [...] on above: Take 1 capsule by mo [facility] one time a week. ergocalciferol 1.25 mg oral capsule (20 sources) Provitamin D2 Compound Start: 020 take 1 capsule by mouth every week ergocalciferol 50,000 unit capsule (VITAMIN D2, DRISDOL) TAKE 1 CAPSULE BY MOUTH WEEKLY 07/05/2022 Active Comment on above: TAKE 1 CAPSULE BY [facility] WEEKLY fenofibrate 134 mg oral capsule (20 sources) Peroxisome Proliferator Receptor alpha Agonist Start: 024 Fenofibrate Micronized Active MG PO April 07, 2024 12:00am Start: 03-02-2016 take 1 capsule by [facility] once daily fenofibrate (LOFIBRA) 134 mg capsule Take 134 mg by mouth once daily. 03/02/2016 Active Comment on above: Take 134 mg by mouth once daily. iv contrast (will be provided with radiology test) (4 sources) Start: 10-23-2023 End: 10-24-2023 iv contrast (will be provided with radiology [...] guidelines link. latanoprost 0.05 mg/ml ophthalmic solution (6 sources) Prostaglandin Analog Start: 05-01-20 take 1 drop(s) into the eye(s) at bedtime latanoprost (XALATAN) 0.005 % ophthalmic solution instill 1 (ONE) DROP IN BOTH EYES AT BEDTIME 05/01/2023 Active Comment on above: instill 1 (ONE) DROP IN BOTH EYES AT BEDTIME metFORMIN hydrochloride 500 mg oral tablet (20 sources) Biguanide Start: 06-12-20 22 take 1 tablet by mouth once daily metFORMIN (GLUCOPHAGE) 500 mg tablet Take 500 mg by mouth once daily. 06/12/2022 Active Start: 06-12-2022 take 2 tablets [...] Take 500 mg by mouth once daily. Metoprolol (20 sources) beta-Adrenergic Jose Start: 04-07-2024 Metoprolol Succinate Active MG PO April 07, 2024 12:00am Start: 06-12-2022 take 1 tablet by mk th once daily metoprolol succinate ER (TOPROL XL) 25 mg 24 hr tablet Take 25 mg by mouth once daily. 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 PLANT OPERATOR CURRNT USE ANTICOAGULANTS] Onset: 3 Episodic Other aftercare (1 source) jail (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 of oral hypoglycemic drugs; Translations: [SNF USE ORAL HYPOGLYCEMIC DX] Onset: 3 Episodic Other aftercare (1 source) debeaker (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 of aspirin; Translations: [NICKEL PLANT OPERATOR CURRENT USE OF ASPIRIN] Onset: 3 Episodic [...] Onset: 2 Chronic Other lower respiratory disease (3 sources) Lung mass; Translations: [Other nonspecific abnormal finding of lung field] 02-06-2023 Episodic Other lower respiratory disease (4 sources) Multiple nodules of lung; Translations: [Other [...] Episodic Other nutritional; endocrine; and metabolic disorders (12 sources) Disorder of carbohydrate metabolism; Translations: [Disorder [...] te Episodic/Chronic Diseases of white blood cells (20 sources) 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 Normal [facility] CNOVSPon 10-23-2023 CNOVSP Visit (SP) Office (HEMASA) MANISH ROOT ([id number]) 1945 M Date Time Provider Department 10/23/23 10:45 AM JOHN ENGLAND During your visit today, we recorded the following information about you: Temperature Pulse Respiration Blood pressure 97.8 degrees 54/minute 16/minute 144/70 Weight Height 87.5 kg 1.669 m John England MD 10/23/2023 10:31 PM Signed NAME: Manish Root [facility] NO.: [id number] DATE OF SERVICE: October 23, 2023 (Jacquelyn) [...] Ca Stage 3 - 2/5 LN + [place] regimen on protocol Updated Visit, October 23, [...] better but (more content not included)... Normal [facility] T3 SerPl-mCncon 10-23-2023 T3 [Mass/Vol] 93 ng/dL Normal 79-165 [facility] Comment on above: Order Comment: Marleen beauchamp Type: BLOOD SPECIMEN Ordering Facility: [facility] Address: [address] [place] [address] Performed By: #### 2 4323-8 #### [facility] CLIA [id number] [address] [place] [address] T4 Free SerPl-mCncon 024 Free T4 [Mass/Vol] 1.2 ng/dL Normal 0.9-1.7 [facility] Comment on above: Order Comment: Marleen beauchamp Type: BLOOD SPECIMEN Ordering Facility: [facility] Address: [place] [address] Performed By: #### 2 4323-8 #### [facility] CLIA [id number] [address] [place] [address]99 TSH SerPl-aCncon 10-23-2023 TSH Qn 2.750 m[IU]/L Normal 0.270-4.200 [facility] Comment on above: Order Comment: Speci men Type: BLOOD SPECIMEN Ordering Facility: [facility] Address: [place] [address] Performed By: #### 2 4323-8 #### [facility] CLIA [id number] [address] [place] [address] CT Chest W contrast [place] IMPRESSION: 1. Stable appearance of patchy groundglass [...] any questions regarding this interpretation, please call [phone]. If you are unable to reach us at the number above, please feel free to contact [facility] eRadiology at [phone]. DIVISION OF RADIOLOGY * * *Final Report* * * DATE OF EXAM: Oct 16 2023 12:43PM [facility] 0539 - CT CHEST W [...] upper abdomen. Localizer images: No additional findings. DIVISION OF RADIOLOGY Provider, [facility] - 10/17/2023 * * *Final Report* * * DATE OF EXAM: Oct 16 2023 12:43PM [facility] 0539 - CT CHEST W [...] upper abdomen. Localizer images: No additional findings. IMPRESSION IMPRESSION: 1. Stable appearance of patchy groundglass [...] any questions regarding this interpretation, please call [phone]. If you are unable to reach us at the number above, please feel free to contact [facility] eRadiology at [phone]. [facility] CT Chest W contrast IVOrdere d By: Ccf Provider on 10-17-2023 [facility] CBC W Auto Differential pane l (Bld)on 10-16-2023 Basophils (Bld) [#/Vol] 10*3/uL Normal <0.11 [facility] Comment on above: Order Comment: Speci men Type: BLOOD SPECIMEN Ordering Facility: [facility] Address: [address] [place] [address] [place] [address] Performed By: #### 2 4323-8 #### [facility] CLIA [id number] [address] [place] [address] 99678 Basophils/100 WBC (Bld) 0.6 % Normal [facility] Comment on above: Order Comment: Speci men Type: BLOOD SPECIMEN Ordering Facility: [facility] Address: [address] [place] [address] Performed By: #### 2 4323-8 #### [facility] CLIA [id number] [address] [place] [address] 14639 Differential cell count method Nom (Bld) Auto Normal [facility] Comment on above: Order Comment: Speci men Type: BLOOD SPECIMEN Ordering Facility: [facility] Address: [address] [place] [address] Performed By: #### 2 4323-8 #### [facility] CLIA [id number] [address] [place] [address] 84799 Eosinophils (Bld) [#/Vol] 0.05 10*3/uL Normal <0.46 [facility] Comment on above: Order Comment: Speci men Type: BLOOD SPECIMEN Ordering Facility: [facility] Address: [address] [place] [address] Performed By: #### 2 4323-8 #### [facility] CLIA [id number] [address] [place] [address] 51253 Eosinophils/100 WBC (Bld) 1.6 % Normal [facility] Comment on above: Order Comment: Speci men Type: BLOOD SPECIMEN Ordering Facility: [facility] Address: [address] [place] [address] Performed By: #### 2 4323-8 #### [facility] CLIA [id number] [address] [place] [address] 38707 Erythrocyte distribution width (RBC) [Ratio] 13.8 % Normal 11.5-15.0 [facility] Comment on above: Order Comment: Speci men Type: BLOOD SPECIMEN Ordering Facility: [facility] Address: [address] [place] [address] Performed By: #### 2 4323-8 #### [facility] CLIA [id number] [address] [place] [address] 23867 Hematocrit (Bld) [Volume fraction] 37.9 % Low 39.0-51.0 [facility] Comment on above: Order Comment: Speci men Type: BLOOD SPECIMEN Ordering Facility: [facility] Address: [address] [place] [address] Performed By: #### 2 4323-8 #### [facility] CLIA [id number] [address] [place] [address] 57899 Hemoglobin (Bld) [Mass/Vol] 12.6 g/dL Low 13.0-17.0 [facility] Comment on above: Order Comment: Speci men Type: BLOOD SPECIMEN Ordering Facility: [facility] Address: [address] [place] [address] Performed By: #### 2 4323-8 #### [facility] CLIA [id number] [address] [place] [address] 21077 Immature granulocytes (Bld) [#/Vol] 10*3/uL Normal <0.10 [facility] Comment on above: Order Comment: Speci men Type: BLOOD SPECIMEN Ordering Facility: [facility] Address: [address] [place] [address] Performed By: #### 2 4323-8 #### [facility] CLIA [id number] [address] [place] [address] 24548 Immature granulocytes/100 WBC (Bld) 0.6 % Normal [facility] Comment on above: Order Comment: Speci men Type: BLOOD SPECIMEN Ordering Facility: [facility] Address: [address] [place] [address] Performed By: #### 2 4323-8 #### [facility] CLIA [id number] [address] [place] [address] 67584 Lymphocytes (Bld) [#/Vol] 0.48 10*3/uL Low 1.00-4.00 [facility] Comment on above: Order Comment: Speci men Type: BLOOD SPECIMEN Ordering Facility: [facility] Address: [address] [place] [address] Performed By: #### 2 4323-8 #### [facility] CLIA [id number] [address] [place] [address] 56190 Lymphocytes/100 WBC (Bld) 15.6 % Normal [facility] Comment on above: Order Comment: Speci men Type: BLOOD SPECIMEN Ordering Facility: [facility] Address: [address] [place] [address] Performed By: #### 2 4323-8 #### [facility] CLIA [id number] [address] [place] [address] 65440 MCH (RBC) [Entitic mass] 30.1 pg Normal 26.0-34.0 [facility] Comment on above: Order Comment: Speci men Type: BLOOD SPECIMEN Ordering Facility: [facility] Address: [address] [place] [address] Performed By: #### 2 4323-8 #### [facility] CLIA [id number] [address] [place] [address] 07020 MCHC (RBC) [Mass/Vol] 33.2 g/dL Normal 30.5-36.0 [facility] Comment on above: Order Comment: Speci men Type: BLOOD SPECIMEN Ordering Facility: [facility] Address: [address] [place] [address] Performed By: #### 2 4323-8 #### [facility] CLIA [id number] [address] [place] [address] 73335 MCV (RBC) [Entitic vol] 90.7 fL Normal 80.0-100.0 [facility] Comment on above: Order Comment: Speci men Type: BLOOD SPECIMEN Ordering Facility: [facility] Address: [address] [place] [address] Performed By: #### 2 4323-8 #### [facility] CLIA [id number] [address] [place] [address] Monocytes (Bld) [#/Vol] 0.32 10*3/uL Normal <0.87 [facility] Comment on above: Order Comment: Speci men Type: BLOOD SPECIMEN Ordering Facility: [facility] Address: [address] [place] [address] Performed By: #### 2 4323-8 #### [facility] CLIA [id number] [address] [place] [address] 92413 Monocytes/100 WBC (Bld) 10.4 % Normal [facility] Comment on above: Order Comment: Speci men Type: BLOOD SPECIMEN Ordering Facility: [facility] Address: [address] [place] [address] Performed By: #### 2 4323-8 #### [facility] CLIA [id number] [address] [place] [address] 94354 Neutrophils (Bld) [#/Vol] 2.19 10*3/uL Normal 1.45-7.50 [facility] Comment on above: Order Comment: Speci men Type: BLOOD SPECIMEN Ordering Facility: [facility] Address: [address] [place] [address] Performed By: #### 2 4323-8 #### [facility] CLIA [id number] [address] [place] [address] 08295 Neutrophils/100 WBC (Bld) 71.2 % Normal [facility] Comment on above: Order Comment: Speci men Type: BLOOD SPECIMEN Ordering Facility: [facility] Address: [address] [address] Performed By: #### 2 4323-8 #### [facility] CLIA [id number] [address] [place] [address] 90086 Nucleated RBC (Bld) [#/Vol] 10*3/uL Normal <0.01 [facility] Comment on above: Order Comment: Speci men Type: BLOOD SPECIMEN Ordering Facility: [facility] Address: [address] [address] Performed By: #### 2 4323-8 #### [facility] CLIA [id number] [address] [place] [address] 30121 Nucleated RBC/100 WBC (Bld) [Ratio] 0.0 /100 WBC Normal [facility] Comment on above: Order Comment: Speci men Type: BLOOD SPECIMEN Ordering Facility: [facility] Address: [address] [address] Performed By: #### 2 4323-8 #### [facility] CLIA [id number] [address] [place] [address] 47487 Platelet mean volume (Bld) [Entitic vol] 9.1 fL Normal 9.0-12.7 [facility] Comment on above: Order Comment: Speci men Type: BLOOD SPECIMEN Ordering Facility: [facility] Address: [address] [address] Performed By: #### 2 4323-8 #### [facility] CLIA [id number] [address] [place] [address] 33634 Platelets (Bld) [#/Vol] 183 10*3/uL Normal 150-400 [facility] Comment on above: Order Comment: Speci men Type: BLOOD SPECIMEN Ordering Facility: [facility] Address: [address] [address] Performed By: #### 2 4323-8 #### [facility] CLIA [id number] [address] [place] [address] 13920 RBC (Bld) [#/Vol] 4.18 10*6/uL Low 4.20-6.00 [facility] Comment on above: Order Comment: Speci men Type: BLOOD SPECIMEN Ordering Facility: [facility] Address: [address] [address] Performed By: #### 2 4323-8 #### [facility] CLIA [id number] [address] [place] [address] 95770 WBC (Bld) [#/Vol] 3.08 10*3/uL Low 3.70-11.00 [facility] Comment on above: Order Comment: Speci men Type: BLOOD SPECIMEN Ordering Facility: [facility] Address: [place] [address] Performed By: #### 2 4323-8 #### [facility] CLIA [id number] [address] [place] [address] 36446 Basophils (Bld) [#/Vol] [facility] Basophils/100 WBC (Bld) 0.6 % [facility] Differential cell count method Nom (Bld) Auto [facility] Eosinophils (Bld) [#/Vol] 0.05 10*3/uL [facility] Eosinophils/100 WBC (Bld) 1.6 % [facility] Erythrocyte distribution width (RBC) [Ratio] 13.8 % 11.5 - 15.0 % [facility] Hematocrit (Bld) [Volume fraction] 37.9 % Low 39.0 - 51.0 % [facility] Hemoglobin (Bld) [Mass/Vol] 12.6 g/dL Low 13.0 - 17.0 g/dL [facility] Immature granulocytes (Bld) [#/Vol] [facility] Immature granulocytes/100 WBC (Bld) 0.6 % [facility] Interpretation and review of laboratory results Abnormal [facility] Lymphocytes (Bld) [#/Vol] 0.48 10*3/uL Low [facility] Lymphocytes/100 WBC (Bld) 15.6 % [facility] MCH (RBC) [Entitic mass] 30.1 pg 26.0 - 34.0 pg [facility] MCHC (RBC) [Mass/Vol] 33.2 g/dL 30.5 - 36.0 g/dL [facility] MCV (RBC) [Entitic vol] 90.7 fL 80.0 - 100.0 fL [facility] Monocytes (Bld) [#/Vol] 0.32 10*3/uL [facility] Monocytes/100 WBC (Bld) 10.4 % [facility] Neutrophils (Bld) [#/Vol] 2.19 10*3/uL [facility] Neutrophils/100 WBC (Bld) 71.2 % [facility] Nucleated RBC (Bld) [#/Vol] NINF [facility] Nucleated RBC/100 WBC (Bld) [Ratio] 0.0 % /100 WBC [facility] Platelet mean volume (Bld) [Entitic vol] 9.1 fL 9.0 - 12.7 fL [facility] Platelets (Bld) [#/Vol] 183 10*3/uL [facility] RBC (Bld) [#/Vol] 4.18 10*6/uL Low 4.20 - 6.0 0 m/uL [facility] WBC (Bld) [#/Vol] 3.08 10*3/uL Low [facility] [place] 10-16-2023 CNPN Telephone (HEMASA) MANISH OROT ([id number]) 1945 M Date Time Provider Department 10/16/23 RAFAEL MENG During your visit today, we recorded the following information about you: Rafael Meng RN 10/16/2023 1:17 PM Signed Pt had labs drawn today. Requests that the results be faxed to his PCP, Dr Drake. Results of CBC and CMP faxed to [phone]. Rafael Meng RN Allergies As of Date: 10/16/2023 (No Known Allergies) Date Reviewed: 06/19/2023 Reviewed by: Lala Hooper MA - Fully Assessed Reason for Visit: Care Coordination [0958] Cmt: Results Prescriptions as of 10/16/2023 - [...] Status:Closed by RAFAEL MENG on 10/16/[address] [facility] [address] CHEST W IVCONon CT CHEST W IVCON * * *Final Report* * * DATE OF EXAM: Oct 16 2023 12:43PM [facility] 0539 - CT CHEST W [...] any questions regarding this interpretation, please call [phone]. If you are unable to reach us at the number above, please feel free to contact [facility]iology at [phone]. [id number] N Normal [facility] CT NECK SOFT TISSUE W IVCONo n 10-16-2023 CT NECK SOFT TISSUE W IVCON * * *Final Report* * * DATE OF EXAM: Oct 16 2023 12:43PM [facility] 0013 - CT NECK SOFT [...] any questions regarding this interpretation, please call [phone]. If you are unable to reach us at the number above, please feel free to contact [facility]iology at [phone]. [id number] N Normal [facility] CT Neck W contrast King[place] 04-1 IMPRESSION: Primary: NI-RADS 1. Expected post-treatment changes [...] any questions regarding this interpretation, please call [phone]. If you are unable to reach us at the number above, please feel free to contact [facility]iology at [phone]. DIVISION OF RADIOLOGY * * *Final Report* * * DATE OF EXAM: Oct 16 2023 12:43PM [facility] 0013 - CT NECK SOFT [...] for complete evaluation of the intrathoracic contents. DIVISION OF RADIOLOGY Provider, [facility] - 10/16/2023 * * *Final Report* * * DATE OF EXAM: Oct 16 2023 12:43PM [facility] 0013 - CT NECK SOFT [...] for complete evaluation of the intrathoracic contents. IMPRESSION IMPRESSION: Primary: NI-RADS 1. Expected post-treatment changes [...] any questions regarding this interpretation, please call [phone]. If you are unable to reach us at the number above, please feel free to contact [facility] at [phone]. [facility] Comprehensive metabolic 2000 panelon 10-16-2023 Albumin [Mass/Vol] 4.4 g/dL Normal 3.9-4.9 [facility] Comment on above: Order Comment: Speci men Type: BLOOD SPECIMENOrdering Facility: [facility] Address: [address] [place] [address] Performed By: #### 2 4323-8 ####[facility] [id number] [place] [address] ALP [Catalytic activity/Vol] 48 U/L Normal 38-113 [facility] Comment on above: Order Comment: Speci men Type: BLOOD SPECIMENOrdering Facility: [facility] Address: [address] [place] [address] Performed By: #### 2 4323-8 ####[facility] [id number] [place] [address] ALT [Catalytic activity/Vol] 13 U/L Normal 10-54 [facility] Comment on above: Order Comment: Speci men Type: BLOOD SPECIMENOrdering Facility: [facility] Address: [address] [place] [address] Performed By: #### 2 4323-8 ####[facility] [id number] [place] [address] Anion gap [Moles/Vol] 11 mmol/L Normal 9-18 [facility] Comment on above: Order Comment: Speci men Type: BLOOD SPECIMENOrdering Facility: [facility] Address: [address] [place] [address] Performed By: #### 2 4323-8 ####[facility]CLIA [id number] [place] [address] AST [Catalytic activity/Vol] 15 U/L Normal 14-40 [facility] Comment on above: Order Comment: Speci men Type: BLOOD SPECIMENOrdering Facility: [facility] Address: [address] [place] [address] Performed By: #### 2 4323-8 ####[facility]CL[facility] [id number] [place] [address] Bilirubin [Mass/Vol] 0.5 mg/dL Normal 0.2-1.3 [facility] Comment on above: Order Comment: Speci men Type: BLOOD SPECIMENOrdering Facility: [facility] Address: [address] [place] [address] Performed By: #### 2 4323-8 ####[facility]CLIA [id number] [place] [address] Calcium [Mass/Vol] 9.7 mg/dL Normal 8.5-10.2 [facility] Comment on above: Order Comment: Speci men Type: BLOOD SPECIMENOrdering Facility: [facility] Address: [address] [place] [address] Performed By: #### 2 4323-8 ####[facility]CL[facility] [id number] [place] [address] Chloride [Moles/Vol] 105 mmol/L Normal 97-105 [facility] Comment on above: Order Comment: Speci men Type: BLOOD SPECIMENOrdering Facility: [facility] Address: [address] [place] [address] Performed By: #### 2 4323-8 ####[facility]CL[facility] [id number] [place] [address] CO2 [Moles/Vol] 26 mmol/L Normal 22-30 [facility] Comment on above: Order Comment: Speci men Type: BLOOD SPECIMENOrdering Facility: [facility] Address: [address] [place] [address] Performed By: #### 2 4323-8 ####[facility]CLIA [id number] [place] [address] Creatinine [Mass/Vol] 1.34 mg/dL High 0.73-1.22 [facility] Comment on above: Order Comment: Marleen beauchamp Type: BLOOD SPECIMENOrdering Facility: [facility] Address: [address] [place] [address] Performed By: #### 2 4323-8 ####[facility]CLIA [id number] [place] [address] Creatinine and Glomerular filtration rate.predicted panel (S/P/Bld) 54 mL/min/1.73m??? Low >=60 [facility] Comment on above: Order Comment: Marleen beauchamp Type: BLOOD SPECIMENOrdering Facility: [facility] Address: [address] [place] [address] Result Comment: Felicity mated Glomerular Filtration Rate [...] actual GFR. Performed By: #### 2 4323-8 ####[facility]CLIA [id number] [place] [address] Glucose [Mass/Vol] 135 mg/dL High 74-99 [facility] Comment on above: Order Comment: Marleen beauchamp Type: BLOOD SPECIMENOrdering Facility: [facility] Address: [address] [place] [address] Result Comment: The [place] Diabetes Association (ADA) provides guidance for cutoff [...] Standards of Medical Care in Diabetes 2016, [place] [employer]. Diabetes Care. 2016.39(Suppl 1). Performed By: #### 2 4323-8 ####[facility]CLIA [id number] [place] [address] Potassium [Moles/Vol] 4.5 mmol/L Normal 3.7-5.1 [facility] Comment on above: Order Comment: Speci men Type: BLOOD SPECIMENOrdering Facility: [facility] Address: [address] [place] [address] Performed By: #### 2 4323-8 ####[facility]CLIA [id number] [place] [address] Protein [Mass/Vol] 6.7 g/dL Normal 6.3-8.0 [facility] Comment on above: Order Comment: Speci men Type: BLOOD SPECIMENOrdering Facility: [facility] Address: [address] [place] [address] Performed By: #### 2 4323-8 ####[facility]CLIA [id number] [place] [address] Sodium [Moles/Vol] 142 mmol/L Normal 136-144 [facility] Comment on above: Order Comment: Speci men Type: BLOOD SPECIMENOrdering Facility: [facility] Address: [address] [place] [address] Performed By: #### 2 4323-8 ####[facility]CLIA [id number] [place] [address] Urea nitrogen [Mass/Vol] 22 mg/dL Normal 9-24 [facility] Comment on above: Order Comment: Speci men Type: BLOOD SPECIMENOrdering Facility: [facility] Address: [address] [place] [address] Performed By: #### 2 4323-8 ####[facility]CLIA [id number] [place] [address] Comprehensive metabolic 2000 panelOrdered By: Moustapha Calderon on 10-16-2023 Albumin [Mass/Vol] 4.4 g/dL 3.9 - 4.9 g/dL [facility] ALP [Catalytic activity/Vol] 48 U/L 38 - 113 U/L [facility] ALT [Catalytic activity/Vol] 13 U/L 10 - 54 U/L [facility] Anion gap [Moles/Vol] 11 mmol/L 9 - 18 mmol/L [facility] AST [Catalytic activity/Vol] 15 U/L 14 - 40 U/L [facility] Bilirubin [Mass/Vol] 0.5 mg/dL 0.2 - 1 .3 mg/dL [facility] Calcium [Mass/Vol] 9.7 mg/dL 8.5 - 10. 2 mg/dL [facility] Chloride [Moles/Vol] 105 mmol/L 97 - 10 5 mmol/L [facility] CO2 [Moles/Vol] 26 mmol/L 22 - 30 mmol/L [facility] Creatinine [Mass/Vol] 1.34 mg/dL High 0.73 - 1.22 mg/dL [facility] GFR/1.73 sq M.predicted among non-blacks MDRD (S/P/Bld) [Vol rate/Area] 54 mL/min/{1.73_m2} Low - PINF [facility] Comment on above: Estimated Glomerular Filtration Rate (eGFR) is calculated using the 2020 CKD-EPI creatinine equation. This equation utilizes serum creatinine, sex, and age as parameters. The creatinine assay has traceable calibration to isotope dilution-mass spectrometry. Refer to KDIGO guidelines for clinical interpretation. In patients with unstable renal function, e.g. those with acute kidney injury, the eGFR may not accurately reflect actual GFR. Glucose [Mass/Vol] 135 mg/dL High 74 - 99 mg/dL [facility] Comment on above: The [place] Diabete s Association (ADA) provides guidance for cutoff values [...] Standards of Medical Care in Diabetes 2016, [place] [employer]. Diabetes Care. 2016.39(Suppl 1). Interpretation and review of laboratory results Abnormal [facility] Potassium [Moles/Vol] 4.5 mmol/L 3.7 - 5.1 mmol/L [facility] Protein [Mass/Vol] 6.7 g/dL 6.3 - 8.0 g/dL [facility] Sodium [Moles/Vol] 142 mmol/L 136 - 144 mmol/L [facility] Urea nitrogen [Mass/Vol] 22 mg/dL 9 - 24 mg/dL [facility] No Panel Informationon 10-15 Radiology Study observation (narrative) [facility] CNOVSPon 06-19-2023 CNOVSP Visit (SP) Office (HEMASA) MANISH ROOT ([id number]) 1945 M Date Time Provider Department 06/19/23 9:45 AM JOHN ENGLAND During your visit today, we recorded the following information about you: Temperature Pulse Respiration Blood pressure 97.2 degrees 54/minute 16/minute 140/69 Weight 82.9 kg John England MD 06/20/2023 8:01 AM Signed NAME: Manish Root NO.: [id number] DATE OF SERVICE: June 19, 2023 (Jacquelyn) [...] Ca Stage 3 - 2/5 LN + [place] regimen on protocol Updated Visit, June 19, [...] Manish re (more content not included)... Normal [facility] CT CHEST W IVCONon 3 CT CHEST W IVCON * * *Final Report* * * DATE OF EXAM: Jun 12 2023 8:15AM [facility] 0539 - CT CHEST W [...] noted are nonspecific noncalcified pulmonary nodules, with sales training representative larger examples detailed as follows on [...] No abnormality in the imaged upper abdomen. Paint Coating Machine Operator (topogram) images: No additional findings. IMPRESSION: 1. [...] any questions regarding this interpretation, please call [phone]. If you are unable to reach us at the number above, please feel free to contact [facility] eRadiology at [phone]. [id number] [email or web address] Normal [facility] CT Chest W contrast [place] IMPRESSION: 1. Since 03/14/2023, near complete resolution [...] any questions regarding this interpretation, please call [phone]. If you are unable to reach us at the number above, please feel free to contact [facility] at [phone]. DIVISION OF RADIOLOGY * * *Final Report* * * DATE OF EXAM: Jun 12 2023 8:15AM [facility] 0539 - CT CHEST W [...] noted are nonspecific noncalcified pulmonary nodules, with sales training representative larger examples detailed as follows on [...] No abnormality in the imaged upper abdomen. Paint Coating Machine Operator (topogram) images: No additional findings. DIVISION OF RADIOLOGY Provider, [facility] - 06/12/2023 * * *Final Report* * * DATE OF EXAM: Jun 12 2023 8:15AM [facility] 0539 - CT CHEST W [...] noted are nonspecific noncalcified pulmonary nodules, with sales training representative larger examples detailed as follows on [...] No abnormality in the imaged upper abdomen. Paint Coating Machine Operator (topogram) images: No additional findings. IMPRESSION IMPRESSION: 1. Since 03/14/2023, near complete resolution [...] any questions regarding this interpretation, please call [phone]. If you are unable to reach us at the number above, please feel free to contact [facility] eRadiology at [phone]. [facility] Radiology Study observation (narrative) [facility] CT Chest W contrast IVOrdere d By: Ccf Provider on 06-12-2023 [facility] CBC W Auto Differential pane l (Bld)on 06-11-2023 Basophils (Bld) [#/Vol] 0.03 10*3/uL Normal <0.11 [facility] Comment on above: Order Comment: Speci men Type: BLOOD SPECIMEN [facility] Address: [address] [place] [id number] Performed By: #### 2 4323-8 #### [facility] CLIA [id number] [address] [place] [address] Basophils/100 WBC (Bld) 0.9 % Normal [facility] Comment on above: Order Comment: Speci men Type: BLOOD SPECIMEN [facility] Address: [address] [address] Performed By: #### 2 4323-8 #### [facility] CLIA [id number] [address] [place] [address] Differential cell count method Nom (Bld) Auto Normal [facility] Comment on above: Order Comment: Speci men Type: BLOOD SPECIMEN [facility] Address: [address] [address] Performed By: #### 2 432-8 #### [facility] CLIA [id number] [address] [place] [address] Eosinophils (Bld) [#/Vol] 0.05 10*3/uL Normal <0.46 [facility] Comment on above: Order Comment: Speci men Type: BLOOD SPECIMEN [facility] Address: [address] [address] Performed By: #### 2 4323-8 #### [facility] CLIA [id number] [address] [place] [address] Eosinophils/100 WBC (Bld) 1.4 % Normal [facility] Comment on above: Order Comment: Speci men Type: BLOOD SPECIMEN [facility] Address: [address] [address] Performed By: #### 2 432-8 #### [facility] CLIA [id number] [address] [place] [address] Erythrocyte distribution width (RBC) [Ratio] 13.5 % Normal 11.5-15.0 [facility] Comment on above: Order Comment: Speci men Type: BLOOD SPECIMEN [facility] Address: [address] [address] Performed By: #### 2 432-8 #### [facility] CLIA [id number] [address] [place] [address] Hematocrit (Bld) [Volume fraction] 39.8 % Normal 39.0-51.0 [facility] Comment on above: Order Comment: Speci men Type: BLOOD SPECIMEN [facility] Address: [address] [place] [address] Performed By: #### 2 4323-8 #### [facility] CLIA [id number] [address] [place] [address] Hemoglobin (Bld) [Mass/Vol] 13.3 g/dL Normal 13.0-17.0 [facility] Comment on above: Order Comment: Speci men Type: BLOOD SPECIMEN [facility] Address: [address] [place] [address] Performed By: #### 2 4323-8 #### [facility] CLIA [id number] [address] [place] [address] Immature granulocytes (Bld) [#/Vol] 0.03 10*3/uL Normal <0.10 [facility] Comment on above: Order Comment: Speci men Type: BLOOD SPECIMEN [facility] Address: [address] [place] [address] Performed By: #### 2 4323-8 #### [facility] CLIA [id number] [address] [place] [address] Immature granulocytes/100 WBC (Bld) 0.9 % Normal [facility] Comment on above: Order Comment: Speci men Type: BLOOD SPECIMEN [facility] Address: [address] [place] [address] Performed By: #### 2 4323-8 #### [facility] CLIA [id number] [address] [place] [address] Lymphocytes (Bld) [#/Vol] 0.53 10*3/uL Low 1.00-4.00 [facility] Comment on above: Order Comment: Speci men Type: BLOOD SPECIMEN [facility] Address: [address] [address] Performed By: #### 2 4323-8 #### [facility] CLIA [id number] [address] [place] [address] Lymphocytes/100 WBC (Bld) 15.2 % Normal [facility] Comment on above: Order Comment: Speci men Type: BLOOD SPECIMEN [facility] Address: [address] [address] Performed By: #### 2 4323-8 #### [facility] CLIA [id number] [address] [place] [address] MCH (RBC) [Entitic mass] 30.5 pg Normal 26.0-34.0 [facility] Comment on above: Order Comment: Speci men Type: BLOOD SPECIMEN [facility] Address: [address] [place] [address] Performed By: #### 2 4323-8 #### [facility] CLIA [id number] [address] [place] [address]236 MCHC (RBC) [Mass/Vol] 33.4 g/dL Normal 30.5-36.0 [facility] Comment on above: Order Comment: Speci men Type: BLOOD SPECIMEN [facility] Address: [address] [place] [address] Performed By: #### 2 4323-8 #### [facility] CLIA [id number] [address] [place] [address] MCV (RBC) [Entitic vol] 91.3 fL Normal 80.0-100.0 [facility] Comment on above: Order Comment: Speci men Type: BLOOD SPECIMEN [facility] Address: [address] [place] [address] Performed By: #### 2 4323-8 #### [facility] CLIA [id number] [address] [place] [address]020 Monocytes (Bld) [#/Vol] 0.42 10*3/uL Normal <0.87 [facility] Comment on above: Order Comment: Speci men Type: BLOOD SPECIMEN [facility] Address: [address] [address] Performed By: #### 2 4323-8 #### [facility] CLIA [id number] [address] [place] [address] Monocytes/100 WBC (Bld) 12.0 % Normal [facility] Comment on above: Order Comment: Speci men Type: BLOOD SPECIMEN [facility] Address: [address] [address] Performed By: #### 2 432-8 #### [facility] CLIA [id number] [address] [place] [address] Neutrophils (Bld) [#/Vol] 2.43 10*3/uL Normal 1.45-7.50 [facility] Comment on above: Order Comment: Speci men Type: BLOOD SPECIMEN [facility] Address: [address] [address] Performed By: #### 2 4323-8 #### [facility] CLIA [id number] [address] [place] [address] Neutrophils/100 WBC (Bld) 69.6 % Normal [facility] Comment on above: Order Comment: Speci men Type: BLOOD SPECIMEN [facility] Address: [address] Performed By: #### 2 4323-8 #### [facility] CLIA [id number] [address] [place] [address] Nucleated RBC (Bld) [#/Vol] 10*3/uL Normal <0.01 [facility] Comment on above: Order Comment: Speci men Type: BLOOD SPECIMEN [facility] Address: [address] [address] Performed By: #### 2 4323-8 #### [facility] CLIA [id number] [address] [place] [address] Nucleated RBC/100 WBC (Bld) [Ratio] 0.0 /100 WBC Normal [facility] Comment on above: Order Comment: Speci men Type: BLOOD SPECIMEN [facility] Address: [address] [place] [address] Performed By: #### 2 4323-8 #### [facility] CLIA [id number] [address] [place] [address]47 Platelet mean volume (Bld) [Entitic vol] 9.0 fL Normal 9.0-12.7 [facility] Comment on above: Order Comment: Speci men Type: BLOOD SPECIMEN [facility] Address: [address] [place] [address] Performed By: #### 2 4323-8 #### [facility] CLIA [id number] [address] [place] [address] 92825 Platelets (Bld) [#/Vol] 180 10*3/uL Normal 150-400 [facility] Comment on above: Order Comment: Speci men Type: BLOOD SPECIMEN [facility] Address: [address] [place] [address] Performed By: #### 2 4323-8 #### [facility] CLIA [id number] [address] [place] [address] RBC (Bld) [#/Vol] 4.36 10*6/uL Normal 4.20-6.00 [facility] Comment on above: Order Comment: Speci men Type: BLOOD SPECIMEN [facility] Address: [address] [place] [address] Performed By: #### 2 4323-8 #### [facility] CLIA [id number] [address] [place] [address] 74597 WBC (Bld) [#/Vol] 3.49 10*3/uL Low 3.70-11.00 [facility] Comment on above: Order Comment: Speci men Type: BLOOD SPECIMEN [facility] Address: [address] [place] [address] Performed By: #### 2 4323-8 #### [facility] CLIA [id number] [address] [place] [address] Comprehensive metabolic 2000 panelon 06-11-2023 Albumin [Mass/Vol] 4.8 g/dL Normal 3.9-4.9 [facility] Comment on above: Order Comment: Speci men Type: BLOOD SPECIMENOrdering Facility: [facility] Address: [address] [place] [address] Performed By: #### 2 4323-8 ####[facility] [id number] [place] [address] ALP [Catalytic activity/Vol] 47 U/L Normal 38-113 [facility] Comment on above: Order Comment: Speci men Type: BLOOD SPECIMENOrdering Facility: [facility] Address: [address] [place] [address] Performed By: #### 2 4323-8 ####[facility] [id number] [place] [address] ALT [Catalytic activity/Vol] 11 U/L Normal 10-54 [facility] Comment on above: Order Comment: Speci men Type: BLOOD SPECIMENOrdering Facility: [facility] Address: [address] [place] [address] Performed By: #### 2 4323-8 ####[facility] [id number] [place] [address] Anion gap [Moles/Vol] 10 mmol/L Normal 9-18 [facility] Comment on above: Order Comment: Speci men Type: BLOOD SPECIMENOrdering Facility: [facility] Address: [address] [place] [address] Performed By: #### 2 4323-8 ####[facility] [id number] [place] [address] AST [Catalytic activity/Vol] 15 U/L Normal 14-40 [facility] Comment on above: Order Comment: Speci men Type: BLOOD SPECIMENOrdering Facility: [facility] Address: [address] [place] [address] Performed By: #### 2 4323-8 ####[facility] [id number] [place] [address] Bilirubin [Mass/Vol] 0.6 mg/dL Normal 0.2-1.3 [facility] Comment on above: Order Comment: Speci men Type: BLOOD SPECIMENOrdering Facility: [facility] Address: [address] [place] [address] Performed By: #### 2 4323-8 ####[facility] [id number] [place] [address] Calcium [Mass/Vol] 10.1 mg/dL Normal 8.5-10.2 [facility] Comment on above: Order Comment: Speci men Type: BLOOD SPECIMENOrdering Facility: [facility] Address: [address] [place] [address] Performed By: #### 2 4323-8 ####[facility] [id number] [place] [address] Chloride [Moles/Vol] 102 mmol/L Normal 97-105 [facility] Comment on above: Order Comment: Speci men Type: BLOOD SPECIMENOrdering Facility: [facility] Address: [address] [place] [address] Performed By: #### 2 4323-8 ####[facility] [id number] [place] [address] CO2 [Moles/Vol] 30 mmol/L Normal 22-30 [facility] Comment on above: Order Comment: Speci men Type: BLOOD SPECIMENOrdering Facility: [facility] Address: [address] [place] [address] Performed By: #### 2 4323-8 ####[facility] [id number] [place] [address] Creatinine [Mass/Vol] 1.30 mg/dL High 0.73-1.22 [facility] Comment on above: Order Comment: Marleen beauchamp Type: BLOOD SPECIMENOrdering Facility: [facility] Address: [address] [place] [address] Performed By: #### 2 4323-8 ####[facility] [id number] [place] [address] Creatinine and Glomerular filtration rate.predicted panel (S/P/Bld) 56 mL/min/1.73m??? Low >=60 [facility] Comment on above: Order Comment: Marleen beauchamp Type: BLOOD SPECIMENOrdering Facility: [facility] Address: [address] [place] [address] Result Comment: Felicity mated Glomerular Filtration Rate [...] actual GFR. Performed By: #### 2 4323-8 ####[facility] [id number] [place] [address] Glucose [Mass/Vol] 112 mg/dL High 74-99 [facility] Comment on above: Order Comment: Marleen men Type: BLOOD SPECIMENOrdering Facility: [facility] Address: [address] [place] [address] Result Comment: The [place] [employer] (ADA) provides guidance for cutoff [...] Standards of Medical Care in Diabetes 2016, [place] [employer]. Diabetes Care. 2016.39(Suppl 1). Performed By: #### 2 4323-8 ####[facility] [id number] [place] [address] Potassium [Moles/Vol] 4.4 mmol/L Normal 3.7-5.1 [facility] Comment on above: Order Comment: Speci men Type: BLOOD SPECIMENOrdering Facility: [facility] Address: [address] [place] [address] Performed By: #### 2 4323-8 ####[facility] [id number] [place] [address] Protein [Mass/Vol] 7.4 g/dL Normal 6.3-8.0 [facility] Comment on above: Order Comment: Speci men Type: BLOOD SPECIMENOrdering Facility: [facility] Address: [address] [place] [address] Performed By: #### 2 4323-8 ####[facility] [id number] [place] [address] Sodium [Moles/Vol] 142 mmol/L Normal 136-144 [facility] Comment on above: Order Comment: Speci men Type: BLOOD SPECIMENOrdering Facility: [facility] Address: [address] [place] [address] Performed By: #### 2 4323-8 ####[facility] [id number] [place] [address] Urea nitrogen [Mass/Vol] 29 mg/dL High 9-24 [facility] Comment on above: Order Comment: Speci men Type: BLOOD SPECIMENOrdering Facility: [facility] Address: [address] [place] [address] Performed By: #### 2 4323-8 ####[facility] [id number] [place] [address] CNOVon 05-08-2023 CNOV Office Visit (RADTSA ) MANISH ROOT ([id number]) 1945 M Date Time Provider Department 05/08/23 [...] Feliz MD cc: Dr. Shaikh Vidal Estrada [address] [place] [address] Allergies As of Date: 05/08/2023 (No Known Allergies) Date Reviewed: 05/08/2023 Reviewed by: Diana García LPN - Fully Assessed Reason for Visit: (more content not included)... Normal [facility] CNOVSPon 03-20-2023 CNOVSP Visit (SP) Office (BRU[place]) MANISH ROOT ([id number]) 1945 M Date Time Provider Department 03/20/23 1:15 PM JOHN ENGLAND During your visit today, we recorded the following information about you: Temperature Pulse Respiration Blood pressure 97.9 degrees 59/minute 16/minute 139/65 Weight Height 79.9 kg 1.669 m John England MD 03/20/2023 1:24 PM Signed NAME: Manish Root NO.: [id number] DATE OF SERVICE: March 20, 2023 (Jacquelyn) [...] Ca Stage 3 - 2/5 LN + [place] regimen on protocol Updated Visit, March 20, [...] He has (more content not included)... Normal [facility] CT Chest W contrast [place] IMPRESSION: 1. On patient's prior PET/CT from [...] any questions regarding this interpretation, please call [phone]. If you are unable to reach us at the number above, please feel free to contact [facility]Radiology at [phone]. DIVISION OF RADIOLOGY * * *Final Report* * * DATE OF EXAM: Mar 14 2023 2:26PM [facility] 0539 - CT CHEST W [...] No abnormality in the imaged upper abdomen. Paint Coating Machine Operator (topogram) images: No additional findings. DIVISION OF RADIOLOGY Provider, [facility] - 03/15/2023 * * *Final Report* * * DATE OF EXAM: Mar 14 2023 2:26PM [facility] 0539 - CT CHEST W [...] No abnormality in the imaged upper abdomen. Paint Coating Machine Operator (topogram) images: No additional findings. IMPRESSION IMPRESSION: 1. On patient's prior PET/CT from [...] any questions regarding this interpretation, please call [phone]. If you are unable to reach us at the number above, please feel free to contact [facility] at [phone]. [facility] CT Chest W contrast IVOrdere d By: Ccf Provider on 03-15-[address] [facility] [address] CHEST W IVCONon 3 CT CHEST W IVCON * * *Final Report* * * DATE OF EXAM: Mar 14 2023 2:26PM [facility] 0539 - CT CHEST W [...] No abnormality in the imaged upper abdomen. Paint Coating Machine Operator (topogram) images: No additional findings. IMPRESSION: 1. [...] any questions regarding this interpretation, please call [phone]. If you are unable to reach us at the number above, please feel free to contact [facility] at [phone]. [id number] N Normal [facility] CT Chest W contrast [place] Radiology Study observation (narrative) [facility] ALBUMIN/CREAT RATIO RND URon 02-06-2023 Albumin DL <= 20 mg/L (U) [Mass/Vol] mg/dL Normal [facility] Comment on above: Order Comment: Speci men Type: URINE SPECIMENOrdering Facility: External Submitter Address: , , Performed By: #### U ACR, 39523-3 ####[facility] LABCLIA [id number] [place] [address] [place] Albumin/Creatinine (U) [Mass ratio] <18 Normal <30 [facility] Comment on above: Order Comment: Speci [...] 3(1), 1-150. Performed By: #### U ACR, 92443-8 ####[facility] LABCLIA [id number] [place] [address] [place] CBC W Auto Differential pane l (Bld)on 02-06-2023 Basophils (Bld) [#/Vol] 0.03 10*3/uL Normal <0.11 [facility] Comment on above: Order Comment: Speci men Type: BLOOD SPECIMENOrdering Facility: [facility] Address: [address] [address] Performed By: #### 5 7021-8 ####[facility] LABCLIA [id number] [place] [address] Basophils/100 WBC (Bld) 0.9 % Normal [facility] Comment on above: Order Comment: Speci men Type: BLOOD SPECIMENOrdering Facility: [facility] Address: [address] [address] Performed By: #### 5 7021-8 ####[facility] LABCLIA [id number] [place] [address] Differential cell count method Nom (Bld) Auto Normal [facility] Comment on above: Order Comment: Speci men Type: BLOOD SPECIMENOrdering Facility: [facility] Address: [address] [address] Performed By: #### 5 7021-8 ####[facility] LABCLIA [id number] [place] [address] Eosinophils (Bld) [#/Vol] 0.05 10*3/uL Normal <0.46 [facility] Comment on above: Order Comment: Speci men Type: BLOOD SPECIMENOrdering Facility: [facility] Address: [address] [address] Performed By: #### 5 7021-8 ####[facility] LABCLIA [id number] [place] [address] Eosinophils/100 WBC (Bld) 1.5 % Normal [facility] Comment on above: Order Comment: Speci men Type: BLOOD SPECIMENOrdering Facility: [facility] Address: [address] [address] Performed By: #### 5 7021-8 ####[facility] LABCLIA [id number] [place] [address] Erythrocyte distribution width (RBC) [Ratio] 12.8 % Normal 11.5-15.0 [facility] Comment on above: Order Comment: Speci men Type: BLOOD SPECIMENOrdering Facility: [facility] Address: [address] [place] [address] Performed By: #### 5 7021-8 ####[facility] LABCLIA [id number] [place] [address] Hematocrit (Bld) [Volume fraction] 37.6 % Low 39.0-51.0 [facility] Comment on above: Order Comment: Speci men Type: BLOOD SPECIMENOrdering Facility: [facility] Address: [address] [place] [address] Performed By: #### 5 7021-8 ####[facility] LABCLIA [id number] [place] [address] Hemoglobin (Bld) [Mass/Vol] 12.6 g/dL Low 13.0-17.0 [facility] Comment on above: Order Comment: Speci men Type: BLOOD SPECIMENOrdering Facility: [facility] Address: [address] [address] Performed By: #### 5 7021-8 ####[facility] LABCLIA [id number] [place] [address] Immature granulocytes (Bld) [#/Vol] 10*3/uL Normal <0.10 [facility] Comment on above: Order Comment: Speci men Type: BLOOD SPECIMENOrdering Facility: [facility] Address: [address] [address] Performed By: #### 5 7021-8 ####[facility] LABCLIA [id number] [place] [address] Immature granulocytes/100 WBC (Bld) 0.6 % Normal [facility] Comment on above: Order Comment: Speci men Type: BLOOD SPECIMENOrdering Facility: [facility] Address: [address] [address] Performed By: #### 5 7021-8 ####[facility] LABCLIA [id number] [place] [address] Lymphocytes (Bld) [#/Vol] 0.53 10*3/uL Low 1.00-4.00 [facility] Comment on above: Order Comment: Speci men Type: BLOOD SPECIMENOrdering Facility: [facility] Address: [address] [address] Performed By: #### 5 7021-8 ####[facility] LABCLIA [id number] [place] [address] Lymphocytes/100 WBC (Bld) 15.5 % Normal [facility] Comment on above: Order Comment: Speci men Type: BLOOD SPECIMENOrdering Facility: [facility] Address: [address] [address] Performed By: #### 5 7021-8 ####[facility] LABCLIA [id number] [place] [address] MCH (RBC) [Entitic mass] 32.0 pg Normal 26.0-34.0 [facility] Comment on above: Order Comment: Speci men Type: BLOOD SPECIMENOrdering Facility: [facility] Address: [address] [place] [address] Performed By: #### 5 7021-8 ####[facility] LABCLIA [id number] [place] [address] MCHC (RBC) [Mass/Vol] 33.5 g/dL Normal 30.5-36.0 [facility] Comment on above: Order Comment: Speci men Type: BLOOD SPECIMENOrdering Facility: [facility] Address: [address] [place] [address] Performed By: #### 5 7021-8 ####[facility] LABIA [id number] [place] [address] MCV (RBC) [Entitic vol] 95.4 fL Normal 80.0-100.0 [facility] Comment on above: Order Comment: Speci men Type: BLOOD SPECIMENOrdering Facility: [facility] Address: [address] [place] [address] Performed By: #### 5 7021-8 ####[facility] LABCLIA [id number] [place] [address] Monocytes (Bld) [#/Vol] 0.32 10*3/uL Normal <0.87 [facility] Comment on above: Order Comment: Speci men Type: BLOOD SPECIMENOrdering Facility: [facility] Address: [address] [place] [address] Performed By: #### 5 7021-8 ####[facility] LABCLIA [id number] [place] [address] Monocytes/100 WBC (Bld) 9.3 % Normal [facility] Comment on above: Order Comment: Speci men Type: BLOOD SPECIMENOrdering Facility: [facility] Address: [address] [address] Performed By: #### 5 7021-8 ####[facility] LABCLIA [id number] [place] [address] Neutrophils (Bld) [#/Vol] 2.48 10*3/uL Normal 1.45-7.50 [facility] Comment on above: Order Comment: Speci men Type: BLOOD SPECIMENOrdering Facility: [facility] Address: [address] [address] Performed By: #### 5 7021-8 ####[facility] LABCLIA [id number] [place] [address] Neutrophils/100 WBC (Bld) 72.2 % Normal [facility] Comment on above: Order Comment: Speci men Type: BLOOD SPECIMENOrdering Facility: [facility] Address: [address] [address] Performed By: #### 5 7021-8 ####[facility] LABCLIA [id number] [place] [address] Nucleated RBC (Bld) [#/Vol] 10*3/uL Normal <0.01 [facility] Comment on above: Order Comment: Speci men Type: BLOOD SPECIMENOrdering Facility: [facility] Address: [address] [place] [address] Performed By: #### 5 7021-8 ####[facility] LABCLIA [id number] [place] [address] Nucleated RBC/100 WBC (Bld) [Ratio] 0.0 /100 WBC Normal [facility] Comment on above: Order Comment: Speci men Type: BLOOD SPECIMENOrdering Facility: [facility] Address: [address] [place] [address] Performed By: #### 5 7021-8 ####[facility] LABCLIA [id number] [place] [address] Platelet mean volume (Bld) [Entitic vol] 9.4 fL Normal 9.0-12.7 [facility] Comment on above: Order Comment: Speci men Type: BLOOD SPECIMENOrdering Facility: [facility] Address: [address] [place] [address] Performed By: #### 5 7021-8 ####[facility] LABIA [id number] [place] [address] Platelets (Bld) [#/Vol] 153 10*3/uL Normal 150-400 [facility] Comment on above: Order Comment: Speci men Type: BLOOD SPECIMENOrdering Facility: [facility] Address: [address] [place] [address] Performed By: #### 5 7021-8 ####[facility] LABIA [id number] [place] [address] RBC (Bld) [#/Vol] 3.94 10*6/uL Low 4.20-6.00 [facility] Comment on above: Order Comment: Speci men Type: BLOOD SPECIMENOrdering Facility: [facility] Address: [address] [place] [address] Performed By: #### 5 7021-8 ####[facility] LABIA [id number] [place] [address] WBC (Bld) [#/Vol] 3.43 10*3/uL Low 3.70-11.00 [facility] Comment on above: Order Comment: Speci men Type: BLOOD SPECIMENOrdering Facility: [facility] Address: [address] [place] [address] Performed By: #### 5 7021-8 ####[facility] LABIA [id number] [place] [address] CNOVon 02-06-2023 CNOV Office Visit (RADTSA ) MANISH ROOT ([id number]) 1945 M Date Time Provider Department 02/06/23 [...] Feliz MD cc: Dr. Shaikh Vidal Estrada [address] [place] [address] Referring Provider: Yordan FELIZ [[id number]] Allergies As of Date: 02/06/2023 (No Known [...] - fen (more content not included)... Normal [facility] CNOVSPon 02-06-2023 CNOVSP Visit (SP) Office (HEMASA) MANISH ROOT ([id number]) 1945 M Date Time Provider Department 02/06/23 [...] 02/06/2023 12:24 PM Signed NAME: Manish Root NO.: [id number] DATE OF SERVICE: February 06, 2023 (Jacquelyn) [...] Ca Stage 3 - 2/5 LN + [place] regimen on protocol Updated Visit, February 06, [...] with his (more content not included)... Normal [facility] Comprehensive metabolic 2000 panelon 02-06-2023 Albumin [Mass/Vol] 4.5 g/dL Normal 3.9-4.9 [facility] Comment on above: Order Comment: Speci men Type: BLOOD SPECIMENOrdering Facility: [facility] Address: [address] [place] [address] Performed By: #### 2 4323-8 ####[facility] LABCLIA [id number] [place] [address] ALP [Catalytic activity/Vol] 58 U/L Normal 38-113 [facility] Comment on above: Order Comment: Speci men Type: BLOOD SPECIMENOrdering Facility: [facility] Address: [address] [place] [address] Performed By: #### 2 4323-8 ####[facility] LABCLIA [id number] [place] [address] ALT [Catalytic activity/Vol] 9 U/L Low 10-54 [facility] Comment on above: Order Comment: Speci men Type: BLOOD SPECIMENOrdering Facility: [facility] Address: [address] [place] [address] Performed By: #### 2 4323-8 ####[facility] LABCLIA [id number] [place] [address] Anion gap [Moles/Vol] 7 mmol/L Low 9-18 [facility] Comment on above: Order Comment: Speci men Type: BLOOD SPECIMENOrdering Facility: [facility] Address: [address] [place] [address] Performed By: #### 2 4323-8 ####[facility] LABCLIA [id number] [place] [address] AST [Catalytic activity/Vol] 13 U/L Low 14-40 [facility] Comment on above: Order Comment: Speci men Type: BLOOD SPECIMENOrdering Facility: [facility] Address: [address] [address] Performed By: #### 2 4323-8 ####[facility] LABCLIA [id number] [place] [address] Bilirubin [Mass/Vol] 0.3 mg/dL Normal 0.2-1.3 [facility] Comment on above: Order Comment: Speci men Type: BLOOD SPECIMENOrdering Facility: [facility] Address: [address] [address] Performed By: #### 2 4323-8 ####[facility] LABCLIA [id number] [place] [address] Calcium [Mass/Vol] 9.9 mg/dL Normal 8.5-10.2 [facility] Comment on above: Order Comment: Speci men Type: BLOOD SPECIMENOrdering Facility: [facility] Address: [address] [address] Performed By: #### 2 4323-8 ####[facility] LABCLIA [id number] [place] [address] Chloride [Moles/Vol] 102 mmol/L Normal 97-105 [facility] Comment on above: Order Comment: Speci men Type: BLOOD SPECIMENOrdering Facility: [facility] Address: [address] [address] Performed By: #### 2 4323-8 ####[facility] LABCLIA [id number] [place] [address] CO2 [Moles/Vol] 30 mmol/L Normal 22-30 [facility] Comment on above: Order Comment: Speci men Type: BLOOD SPECIMENOrdering Facility: [facility] Address: [address] [address] Performed By: #### 2 4323-8 ####[facility] LABCLIA [id number] [place] [address] Creatinine [Mass/Vol] 1.20 mg/dL Normal 0.73-1.22 [facility] Comment on above: Order Comment: Marleen beauchamp Type: BLOOD SPECIMENOrdering Facility: [facility] Address: [address] [address] Performed By: #### 2 4323-8 ####[facility] LABIA [id number] [place] [address] ESTIMATED GLOMERULAR FILTRATION RATE 62 mL/min/1.73m??? Normal >=60 [facility] Comment on above: Order Comment: Marleen beauchamp Type: BLOOD SPECIMENOrdering Facility: [facility] Address: [address] [place] [address] Result Comment: Felicity mated Glomerular Filtration Rate [...] actual GFR. Performed By: #### 2 4323-8 ####[facility] LABIA [id number] [place] [address] Glucose [Mass/Vol] 98 mg/dL Normal 74-99 [facility] Comment on above: Order Comment: Marleen beauchamp Type: BLOOD SPECIMENOrdering Facility: [facility] Address: [address] [place] [address] Result Comment: The [place] Diabetes Association (ADA) provides guidance for cutoff [...] Standards of Medical Care in Diabetes 2016, [place] Diabetes Association. Diabetes Care. 2016.39(Suppl 1). Performed By: #### 2 4323-8 ####[facility] LABCLIA [id number] [place] [address] Potassium [Moles/Vol] 4.9 mmol/L Normal 3.7-5.1 [facility] Comment on above: Order Comment: Speci men Type: BLOOD SPECIMENOrdering Facility: [facility] Address: [address] [address] Performed By: #### 2 4323-8 ####[facility] LABCLIA [id number] [place] [address] Protein [Mass/Vol] 6.7 g/dL Normal 6.3-8.0 [facility] Comment on above: Order Comment: Speci men Type: BLOOD SPECIMENOrdering Facility: [facility] Address: [address] [address] Performed By: #### 2 4323-8 ####[facility] LABCLIA [id number] [place] [address] Sodium [Moles/Vol] 139 mmol/L Normal 136-144 [facility] Comment on above: Order Comment: Speci men Type: BLOOD SPECIMENOrdering Facility: [facility] Address: [address] [address] Performed By: #### 2 4323-8 ####[facility] LABCLIA [id number] [place] [address] Urea nitrogen [Mass/Vol] 25 mg/dL High 9-24 [facility] Comment on above: Order Comment: Speci men Type: BLOOD SPECIMENOrdering Facility: [facility] Address: [address] [address] Performed By: #### 2 4323-8 ####[facility] LABCLIA [id number] [place] [address] Creat ?Tm Ur-mCncon 02-07-20 Creatinine (U) [Mass/Vol] 67.2 mg/dL Normal 20.0-300.0 [facility] Comment on above: Order Comment: Specbeverley men Type: BLOOD SPECIMEN [facility] Address: [address] [place] [address] Performed By: #### 2 4323-8 #### [facility] CLIA [id number] [address] [place] [address] Order Comment: Speci men Type: URINE SPECIMENOrdering Facility: External Submitter Address: , , Performed By: #### U ACR, 80310-2 ####[facility] LABCLIA [id number] [place] [address] [place] HbA1c (Bld)on 02-06-2023 Average glucose Estimated from glycated hemoglobin (Bld) [Mass/Vol] 117 mg/dL Normal [facility] Comment on above: Order Comment: Marleen men Type: BLOOD SPECIMEN Ordering Facility: External Submitter Address: , , Result Comment: eAG: (Estimated average glucose) is a calculated value from HgbA1c and is sales training representative of the average blood glucose level in the last 2-3 month period. Performed By: #### 5 5454-3 #### [facility] CLIA [id number] [address] [place] [address] [place] HbA1c (Bld) [Mass fraction] 5.7 % High 4.3-5.6 [facility] Comment on above: Order Comment: Reggiebeverley beauchamp Type: BLOOD SPECIMEN Ordering Facility: External Submitter Address: , , Result Comment: [place] Diabetes Association guidelines indicate that patients with HgbA1c in the range 5.7-6.4% are at increased risk for development of diabetes, and intervention by lifestyle modification may be beneficial. HgbA1c greater or equal to 6.5% is considered diagnostic of diabetes. Performed By: #### 5 5454-3 #### [facility] CLIA [id number] [address] [facility] [id number] [address] [place] Lipid 1996 panelon 3 Cholesterol [Mass/Vol] 168 mg/dL Normal <200 [facility] Comment on above: Order Comment: Speci men Type: BLOOD SPECIMEN [facility] Address: [address] [place] [address] Result Comment: <200 mg/dL, Desirable 200-239 mg/dL, Borderline high >239 mg/dL, High Performed By: #### 2 4323-8 #### [facility] CLIA [id number] [address] [place] [address] Cholesterol in HDL [Mass/Vol] 41 mg/dL Normal >39 [facility] Comment on above: Order Comment: Marleen beauchamp Type: BLOOD SPECIMEN [facility] Address: [address] [place] [address] Result Comment: 40-5 9 mg/dL, Acceptable >59 mg/dL, High: Negative risk factor for coronary heart disease <40 mg/dL, Low: Positive risk factor for coronary heart disease Performed By: #### 2 4323-8 #### [facility] CLIA [id number] [address] [place] [address] Cholesterol in LDL [Mass/Vol] 109 mg/dL High <100 [facility] Comment on above: Order Comment: Speci men Type: BLOOD SPECIMEN [facility] Address: [address] [place] [address] Result Comment: <100 mg/dL, Optimal 100-129 mg/dL, Near optimal/above optimal 130-159 mg/dL, Borderline high 160-189 mg/dL, High >189 mg/dL, Very high Secondary prevention optimal LDL Cholesterol levels are recommended to be < 70 mg/dL Performed By: #### 2 4323-8 #### [facility] CLIA [id number] [address] [place] [address] Cholesterol in LDL/Cholesterol in HDL [Mass ratio] 2.66 {ratio} High <2.54 [facility] Comment on above: Order Comment: Speci men Type: BLOOD SPECIMEN [facility] Address: [address] [place] [address] Result Comment: Madhav hutton: 1. National Cholesterol Education Program ATP III Guideline At-A-Glance Quick Desk Reference: National Heart, Lung, and Blood Antlers. National Institutes of Health. 2001: NIH Publication No. 01-3305. 2. An International Atherosclerosis Society position paper: global recommendations for the management of dyslipidemia: executive summary, Atherosclerosis. 2014: 232(2):410-413. Performed By: #### 2 4323-8 #### [facility] CLIA [id number] [address] [place] [address] Cholesterol in VLDL [Mass/Vol] 18 mg/dL Normal <30 [facility] Comment on above: Order Comment: Marleen beauchamp Type: BLOOD SPECIMEN [facility] Address: [address] [place] [address] Performed By: #### 2 4323-8 #### [facility] CLIA [id number] [address] [place] [address] Cholesterol non HDL [Mass/Vol] 127 mg/dL Normal <130 [facility] Comment on above: Order Comment: Marleen beauchamp Type: BLOOD SPECIMEN [facility] Address: [address] [place] [address] Result Comment: <130 mg/dL, Optimal 130-159 mg/dL, Near optimal/above optimal 160-189 mg/dL, Borderline high 190-219 mg/dL, High >219 mg/dL, Very high Secondary prevention optimal non HDL Cholesterol levels are recommended to be <100 mg/dL Performed By: #### 2 4323-8 #### [facility] CLIA [id number] [address] [place] [address] Cholesterol.total/Ch olesterol in HDL [Mass ratio] 4.10 {ratio} Normal <5.10 [facility] Comment on above: Order Comment: Marleen beauchamp Type: BLOOD SPECIMEN [facility] Address: [address] [place] [address] Performed By: #### 2 4323-8 #### [facility] CLIA [id number] [address] [place] [address] FASTING TIME 12 hrs Normal [facility] Comment on above: Order Comment: Speci men Type: BLOOD SPECIMEN [facility] Address: [address] [id number] Performed By: #### 2 4323-8 #### [facility] CLIA [id number] [address] [place] [address] Triglyceride [Mass/Vol] 89 mg/dL Normal <150 [facility] Comment on above: Order Comment: Speci men Type: BLOOD SPECIMEN [facility] Address: [address] [id number] Result Comment: <150 mg/dL, Normal 150-199 mg/dL, Borderline high 200-499 mg/dL, High >499 mg/dL, Very high Performed By: #### 2 4323-8 #### [facility] CLIA [id number] [address] [place], [place] [address] GLUCOSE, BLOOD (POC)on 01-29 Glucose [Mass/Vol] 124 mg/dL Abnormal 74 - 99 mg/dL [facility] Comment on above: Location:[facility], [address] [place] [address] , [place], [place], [address] The Accu-Chek Inform II glucose meter has not been approved for testing on patients receiving intensive medical intervention or therapy and results from this point of care glucose test should not be used for patient management decisions in these cases. Inaccurate results may also occur from other interfering factors, such as N-acetylcysteine (blood concentrations of greater than 5mg/dL), galactose, extremes of hematocrit (<10 or >65), or high doses of ascorbic acid (vitamin C) greater than 3mg/dL. Consider alternate testing mechanisms (e.g. core lab, blood gas instrument) in the above situations. Interpretation and review of laboratory results Abnormal [facility] NM PET/CT SKULL-THIGH SUBQon 01-29-2023 NM PET/CT [...] SKELETON: There are no hypermetabolic osseous lesions. Paint Coating Machine Operator (topogram) images:No additional findings. -- IMPRESSION: 1. [...] any questions regarding this interpretation, please call [phone]. If you are unable to reach us at the number above, please feel free to contact [facility] at [phone]. [id number] N Normal [facility] PET+CT Guidance for localiza tion of tumor of Skull base to mid-thigh-- W 18F-FDG [place] 01-29-2023 IMPRESSION: 1. Neck: No suspicious hypermetabolic foci. [...] any questions regarding this interpretation, please call [phone]. If you are unable to reach us at the number above, please feel free to contact [facility] at [phone]. DIVISION OF RADIOLOGY * * *Final Report* * * DATE [...] SKELETON: There are no hypermetabolic osseous lesions. Paint Coating Machine Operator (topogram) images:No additional findings. -- DIVISION OF RADIOLOGY Provider, [facility] - 01/29/2023 * * *Final Report* * * DATE [...] SKELETON: There are no hypermetabolic osseous lesions. Paint Coating Machine Operator (topogram) images:No additional findings. -- IMPRESSION IMPRESSION: 1. Neck: No suspicious hypermetabolic foci. [...] any questions regarding this interpretation, please call [phone]. If you are unable to reach us at the number above, please feel free to contact [facility] at [phone]. [facility] Radiology Study observation (narrative) [facility] PET+CT Guidance for localiza tion of tumor of Skull base to mid-thigh-- W 18F-FDG IVOrdered By: Ccf Provider on 01-29-2023 [facility] CNOVon 11-28-2022 CNOV Office Visit (RADTSA ) MANISH ROOT ([id number]) 1945 M Date Time Provider Department 11/28/22 [...] by: Yordan Feliz MD cc: Mannie [place] [address] [address] [place] [address] Referring Provider: Yordan FELIZ [[id number]] Allergies As of Date: 11/28/2022 (No Known Allergies) Date Reviewed: 11/28/2022 Reviewed by: Nela Samayoa RN - Fully Assessed Reason for Visit: Head and Neck Cancer [551] 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 Normal [facility] CBC W Auto Differential pane l (Bld)on 11-07-2022 Basophils (Bld) [#/Vol] 10*3/uL Normal <0.11 [facility] Comment on above: Order Comment: Speci men Type: BLOOD SPECIMEN Ordering Facility: [facility] Address: [address] [id number] Performed By: #### 2 4323-8 #### [facility] CLIA [id number] [address] [place] [address] 82839 Basophils/100 WBC (Bld) 0.6 % Normal [facility] Comment on above: Order Comment: Speci men Type: BLOOD SPECIMEN Ordering Facility: [facility] Address: [address] [address] Performed By: #### 2 4323-8 #### [facility] CLIA [id number] [address] [place] [address] 83801 Differential cell count method Nom (Bld) Auto Normal [facility] Comment on above: Order Comment: Speci men Type: BLOOD SPECIMEN Ordering Facility: [facility] Address: [address] [address] Performed By: #### 2 4323-8 #### [facility] CLIA [id number] [address] [place] [address] 42898 Eosinophils (Bld) [#/Vol] 10*3/uL Normal <0.46 [facility] Comment on above: Order Comment: Speci men Type: BLOOD SPECIMEN Ordering Facility: [facility] Address: [address] [place] [address] Performed By: #### 2 4323-8 #### [facility] CLIA [id number] [address] [place] [address] 62197 Eosinophils/100 WBC (Bld) 0.6 % Normal [facility] Comment on above: Order Comment: Speci men Type: BLOOD SPECIMEN Ordering Facility: [facility] Address: [address] [place] [address] Performed By: #### 2 4323-8 #### [facility] CLIA [id number] [address] [place] [address] 54955 Erythrocyte distribution width (RBC) [Ratio] 16.7 % High 11.5-15.0 [facility] Comment on above: Order Comment: Speci men Type: BLOOD SPECIMEN Ordering Facility: [facility] Address: [address] [address] Performed By: #### 2 4323-8 #### [facility] CLIA [id number] [address] [place] [address] 65364 Hematocrit (Bld) [Volume fraction] 32.2 % Low 39.0-51.0 [facility] Comment on above: Order Comment: Speci men Type: BLOOD SPECIMEN Ordering Facility: [facility] Address: [address] [address] Performed By: #### 2 4323-8 #### [facility] CLIA [id number] [address] [place] [address] 52803 Hemoglobin (Bld) [Mass/Vol] 11.0 g/dL Low 13.0-17.0 [facility] Comment on above: Order Comment: Speci men Type: BLOOD SPECIMEN Ordering Facility: [facility] Address: [address] [address] Performed By: #### 2 4323-8 #### [facility] CLIA [id number] [address] [place] [address] 14836 Immature granulocytes (Bld) [#/Vol] 0.03 10*3/uL Normal <0.10 [facility] Comment on above: Order Comment: Speci men Type: BLOOD SPECIMEN Ordering Facility: [facility] Address: [address] [address] Performed By: #### 2 4323-8 #### [facility] CLIA [id number] [address] [place] [address] 46586 Immature granulocytes/100 WBC (Bld) 0.9 % Normal [facility] Comment on above: Order Comment: Speci men Type: BLOOD SPECIMEN Ordering Facility: [facility] Address: [address] [address] Performed By: #### 2 4323-8 #### [facility] CLIA [id number] [address] [place] [address] 99749 Lymphocytes (Bld) [#/Vol] 0.31 10*3/uL Low 1.00-4.00 [facility] Comment on above: Order Comment: Speci men Type: BLOOD SPECIMEN Ordering Facility: [facility] Address: [address] [address] Performed By: #### 2 4323-8 #### [facility] CLIA [id number] [address] [place] [address] 33540 Lymphocytes/100 WBC (Bld) 8.9 % Normal [facility] Comment on above: Order Comment: Speci men Type: BLOOD SPECIMEN Ordering Facility: [facility] Address: [address] [address] Performed By: #### 2 4323-8 #### [facility] CLIA [id number] [address] [place] [address] 14589 MCH (RBC) [Entitic mass] 31.5 pg Normal 26.0-34.0 [facility] Comment on above: Order Comment: Speci men Type: BLOOD SPECIMEN Ordering Facility: [facility] Address: [address] [address] Performed By: #### 2 4323-8 #### [facility] CLIA [id number] [address] [place] [address] 25672 MCHC (RBC) [Mass/Vol] 34.2 g/dL Normal 30.5-36.0 [facility] Comment on above: Order Comment: Speci men Type: BLOOD SPECIMEN Ordering Facility: [facility] Address: [address] [address] Performed By: #### 2 4323-8 #### [facility] CLIA [id number] [address] [place] [address] 08340 MCV (RBC) [Entitic vol] 92.3 fL Normal 80.0-100.0 [facility] Comment on above: Order Comment: Speci men Type: BLOOD SPECIMEN Ordering Facility: [facility] Address: [address] [address] Performed By: #### 2 4323-8 #### [facility] CLIA [id number] [address] [place] [address] 44436 Monocytes (Bld) [#/Vol] 0.38 10*3/uL Normal <0.87 [facility] Comment on above: Order Comment: Speci men Type: BLOOD SPECIMEN Ordering Facility: [facility] Address: [address] [address] Performed By: #### 2 4323-8 #### [facility] CLIA [id number] [address] [place] [address] Monocytes/100 WBC (Bld) 11.0 % Normal [facility] Comment on above: Order Comment: Speci men Type: BLOOD SPECIMEN Ordering Facility: [facility] Address: [address] [place] [address] Performed By: #### 2 4323-8 #### [facility] CLIA [id number] [address] [place] [address] 15455 Neutrophils (Bld) [#/Vol] 2.71 10*3/uL Normal 1.45-7.50 [facility] Comment on above: Order Comment: Speci men Type: BLOOD SPECIMEN Ordering Facility: [facility] Address: [address] [place] [address] Performed By: #### 2 4323-8 #### [facility] CLIA [id number] [address] [place] [address] 17381 Neutrophils/100 WBC (Bld) 78.0 % Normal [facility] Comment on above: Order Comment: Speci men Type: BLOOD SPECIMEN Ordering Facility: [facility] Address: [address] [place] [address] Performed By: #### 2 4323-8 #### [facility] CLIA [id number] [address] [place] [address] 57766 Nucleated RBC (Bld) [#/Vol] 10*3/uL Normal <0.01 [facility] Comment on above: Order Comment: Speci men Type: BLOOD SPECIMEN Ordering Facility: [facility] Address: [address] [place] [address] Performed By: #### 2 4323-8 #### [facility] CLIA [id number] [address] [place] [address] 15435 Nucleated RBC/100 WBC (Bld) [Ratio] 0.0 /100 WBC Normal [facility] Comment on above: Order Comment: Speci men Type: BLOOD SPECIMEN Ordering Facility: [facility] Address: [address] [address] Performed By: #### 2 4323-8 #### [facility] CLIA [id number] [address] [place] [address] 60672 Platelet mean volume (Bld) [Entitic vol] 9.2 fL Normal 9.0-12.7 [facility] Comment on above: Order Comment: Speci men Type: BLOOD SPECIMEN Ordering Facility: [facility] Address: [address] [address] Performed By: #### 2 4323-8 #### [facility] CLIA [id number] [address] [place] [address] 30040 Platelets (Bld) [#/Vol] 181 10*3/uL Normal 150-400 [facility] Comment on above: Order Comment: Speci men Type: BLOOD SPECIMEN Ordering Facility: [facility] Address: [address] [address] Performed By: #### 2 4323-8 #### [facility] CLIA [id number] [address] [place] [address] 26201 RBC (Bld) [#/Vol] 3.49 10*6/uL Low 4.20-6.00 [facility] Comment on above: Order Comment: Speci men Type: BLOOD SPECIMEN Ordering Facility: [facility] Address: [address] [address] Performed By: #### 2 4323-8 #### [facility] CLIA [id number] [address] [place] [address] 92131 WBC (Bld) [#/Vol] 3.47 10*3/uL Low 3.70-11.00 [facility] Comment on above: Order Comment: Speci men Type: BLOOD SPECIMEN Ordering Facility: [facility] Address: [address] [place] [address] Performed By: #### 2 4323-8 #### [facility] CLIA [id number] [address] [place] [address] 50734 CNOVSPon 11-07-2022 CNOVSP Visit (SP) Office (HEMAS[place]) MANISH ROOT ([id number]) 1945 M Date Time Provider Department 11/07/22 9:15 AM JOHN ENGLAND During your visit today, we recorded the following information about you: Temperature Pulse Respiration Blood pressure 97.5 degrees 58/minute 16/minute 129/66 Weight Height 78.1 kg 1.669 m John England MD 11/07/2022 9:56 AM Signed NAME: Manish Root CLINIC NO.: [id number] DATE OF SERVICE: November 07, 2022 (Jacquelyn) [...] Ca Stage 3 - 2/5 LN + [place] regimen on protocol Updated Visit, November 07, [...] ECOG P (more content not included)... Normal [facility] Comprehensive metabolic 2000 panelon 11-07-2022 Albumin [Mass/Vol] 4.3 g/dL Normal 3.9-4.9 [facility] Comment on above: Order Comment: Speci men Type: BLOOD SPECIMEN Ordering Facility: [facility] Address: [address] [address] Performed By: #### 2 4323-8 #### [facility] CLIA [id number] [address] [place] [address] ALP [Catalytic activity/Vol] 57 U/L Normal 38-113 [facility] Comment on above: Order Comment: Speci men Type: BLOOD SPECIMEN Ordering Facility: [facility] Address: [address] [address] Performed By: #### 2 4323-8 #### [facility] CLIA [id number] [address] [place] [address] 66167 ALT [Catalytic activity/Vol] 8 U/L Low 10-54 [facility] Comment on above: Order Comment: Speci men Type: BLOOD SPECIMEN Ordering Facility: [facility] Address: [address] [address] Performed By: #### 2 4323-8 #### [facility] CLIA [id number] [address] [place] [address] 50676 Anion gap [Moles/Vol] 8 mmol/L Low 9-18 [facility] Comment on above: Order Comment: Speci men Type: BLOOD SPECIMEN Ordering Facility: [facility] Address: [address] [address] Performed By: #### 2 4323-8 #### [facility] CLIA [id number] [address] [place] [address] 96513 AST [Catalytic activity/Vol] 12 U/L Low 14-40 [facility] Comment on above: Order Comment: Speci men Type: BLOOD SPECIMEN Ordering Facility: [facility] Address: [address] [address] Performed By: #### 2 4323-8 #### [facility] CLIA [id number] [address] [place] [address] 90400 Bilirubin [Mass/Vol] 0.4 mg/dL Normal 0.2-1.3 [facility] Comment on above: Order Comment: Speci men Type: BLOOD SPECIMEN Ordering Facility: [facility] Address: [address] [address] Performed By: #### 2 4323-8 #### [facility] CLIA [id number] [address] [place] [address] 06178 Calcium [Mass/Vol] 9.8 mg/dL Normal 8.5-10.2 [facility] Comment on above: Order Comment: Speci men Type: BLOOD SPECIMEN Ordering Facility: [facility] Address: [address] [address] Performed By: #### 2 4323-8 #### [facility] CLIA [id number] [address] [place] [address] 57896 Chloride [Moles/Vol] 102 mmol/L Normal 97-105 [facility] Comment on above: Order Comment: Speci men Type: BLOOD SPECIMEN Ordering Facility: [facility] Address: [address] [address] Performed By: #### 2 4323-8 #### [facility] CLIA [id number] [address] [place] [address] 18828 CO2 [Moles/Vol] 29 mmol/L Normal 22-30 [facility] Comment on above: Order Comment: Speci men Type: BLOOD SPECIMEN Ordering Facility: [facility] Address: [address] [address] Performed By: #### 2 4323-8 #### [facility] CLIA [id number] [address] [place] [address] 70187 Creatinine [Mass/Vol] 1.07 mg/dL Normal 0.73-1.22 [facility] Comment on above: Order Comment: Speci men Type: BLOOD SPECIMEN Ordering Facility: [facility] Address: [address] [address] Performed By: #### 2 4323-8 #### [facility] CLIA [id number] [address] [place] [address] 67556 ESTIMATED GLOMERULAR FILTRATION RATE 71 mL/min/1.73m??? Normal >=60 [facility] Comment on above: Order Comment: Marleen beauchamp Type: BLOOD SPECIMEN Ordering Facility: [facility] Address: [address] [place] [address] Result Comment: Felicity mated Glomerular Filtration Rate [...] GFR. Performed By: #### 2 4323-8 #### [facility] CLIA [id number] [address] [place] [address] 89736 Glucose [Mass/Vol] 105 mg/dL High 74-99 [facility] Comment on above: Order Comment: Marleen beauchamp Type: BLOOD SPECIMEN Ordering Facility: [facility] Address: [address] [place] [address] Result Comment: The [place] [employer] (ADA) provides guidance for cutoff [...] Standards of Medical Care in Diabetes 2016, [place] [employer]. Diabetes Care. 2016.39(Suppl 1). Performed By: #### 2 4323-8 #### [facility] CLIA [id number] [address] [place] [address] 44475 Potassium [Moles/Vol] 4.6 mmol/L Normal 3.7-5.1 [facility] Comment on above: Order Comment: Marleen beauchamp Type: BLOOD SPECIMEN Order[facility] Facility[facility] [address] [address] Performed By: #### 2 4323-8 #### [facility] CLIA [id number] [address] [place] [address] Protein [Mass/Vol] 6.9 g/dL Normal 6.3-8.0 [facility] Comment on above: Order Comment: Speci men Type: BLOOD SPECIMEN Ordering Facility: [facility] Address: [address] [address] Performed By: #### 2 4323-8 #### [facility] CLIA [id number] [address] [place] [address] 29285 Sodium [Moles/Vol] 139 mmol/L Normal 136-144 [facility] Comment on above: Order Comment: Speci men Type: BLOOD SPECIMEN Ordering Facility: [facility] Address: [address] [address] Performed By: #### 2 4323-8 #### [facility] CLIA [id number] [address] [place] [address] 75269 Urea nitrogen [Mass/Vol] 23 mg/dL Normal 9-24 [facility] Comment on above: Order Comment: Speci men Type: BLOOD SPECIMEN Ordering Facility: [facility] Address: [address] [address] Performed By: #### 2 4323-8 #### [facility] CLIA [id number] [address] [place] [address] Comprehensive metabolic 2000 panelon 10-08-2022 Albumin [Mass/Vol] 4.1 g/dL 3.9 - 4.9 g/dL [facility] ALP [Catalytic activity/Vol] 60 U/L 38 - 113 U/L [facility] ALT [Catalytic activity/Vol] 27 U/L 10 - 54 U/L [facility] Anion gap [Moles/Vol] 10 mmol/L 9 - 18 mmol/L [facility] AST [Catalytic activity/Vol] 23 U/L 14 - 40 U/L [facility] Bilirubin [Mass/Vol] 0.5 mg/dL 0.2 - 1 .3 mg/dL [facility] Calcium [Mass/Vol] 9.5 mg/dL 8.5 - 10. 2 mg/dL [facility] Chloride [Moles/Vol] 96 mmol/L Low 97 - 10 5 mmol/L [facility] CO2 [Moles/Vol] 29 mmol/L 22 - 30 mmol/L [facility] Creatinine [Mass/Vol] 0.96 mg/dL 0.73 - 1.22 mg/dL [facility] Estimated Glomerular Filtration Rate 81 mL/min/1.73m >=60 mL/min/1.73m [facility] Glucose [Mass/Vol] 105 mg/dL High 74 - 99 mg/dL [facility] Potassium [Moles/Vol] 4.2 mmol/L 3.7 - 5.1 mmol/L [facility] Protein [Mass/Vol] 6.8 g/dL 6.3 - 8.0 g/dL Cl [facility] Sodium [Moles/Vol] 135 mmol/L Low 136 - 144 mmol/L [facility] Urea nitrogen [Mass/Vol] 22 mg/dL 9 - 24 mg/dL [facility] CBC W Auto Differential pane l (Bld)on 10-01-2022 Basophils (Bld) [#/Vol] <0.11 k/uL [facility] Basophils/100 WBC (Bld) 0.4 % [facility] Differential cell count method Nom (Bld) Auto [facility] Eosinophils (Bld) [#/Vol] 0.03 10*3/uL <0.46 k/uL [facility] Eosinophils/100 WBC (Bld) 1.3 % [facility] Erythrocyte distribution width (RBC) [Ratio] 13.2 % 11.5 - 15.0 % [facility] Hematocrit (Bld) [Volume fraction] 36.2 % Low 39.0 - 51.0 % [facility] Hemoglobin (Bld) [Mass/Vol] 12.3 g/dL Low 13.0 - 17.0 g/dL [facility] Immature granulocytes (Bld) [#/Vol] <0.10 k/uL [facility] Immature granulocytes/100 WBC (Bld) 0.4 % [facility] Lymphocytes (Bld) [#/Vol] 0.27 10*3/uL Low 1.00 - 4.00 k/uL [facility] Lymphocytes/100 WBC (Bld) 12.0 % [facility] MCH (RBC) [Entitic mass] 30.3 pg 26.0 - 34.0 pg [facility] MCHC (RBC) [Mass/Vol] 34.0 g/dL 30.5 - 36.0 g/dL [facility] MCV (RBC) [Entitic vol] 89.2 fL 80.0 - 100.0 fL [facility] Monocytes (Bld) [#/Vol] 0.23 10*3/uL <0.87 k/uL [facility] Monocytes/100 WBC (Bld) 10.2 % [facility] Neutrophils (Bld) [#/Vol] 1.70 10*3/uL 1.45 - 7.50 k/uL [facility] Neutrophils/100 WBC (Bld) 75.7 % [facility] Nucleated RBC (Bld) [#/Vol] <0.01 k/uL [facility] Nucleated RBC/100 WBC (Bld) [Ratio] 0.0 /100 WBC [facility] Platelet mean volume (Bld) [Entitic vol] 9.5 fL 9.0 - 12.7 fL [facility] Platelets (Bld) [#/Vol] 97 10*3/uL Low 150 - 400 k/uL [facility] RBC (Bld) [#/Vol] 4.06 10*6/uL Low 4.20 - 6.0 0 m/uL [facility] WBC (Bld) [#/Vol] 2.25 10*3/uL Low 3.70 - 11. 00 k/uL [facility] Comprehensive metabolic 2000 panelon 10-01-2022 Albumin [Mass/Vol] 4.2 g/dL 3.9 - 4.9 g/dL [facility] ALP [Catalytic activity/Vol] 69 U/L 38 - 113 U/L [facility] ALT [Catalytic activity/Vol] 21 U/L 10 - 54 U/L [facility] Anion gap [Moles/Vol] 11 mmol/L 9 - 18 mmol/L [facility] AST [Catalytic activity/Vol] 14 U/L 14 - 40 U/L [facility] Bilirubin [Mass/Vol] 0.6 mg/dL 0.2 - 1 .3 mg/dL [facility] Calcium [Mass/Vol] 9.7 mg/dL 8.5 - 10. 2 mg/dL [facility] Chloride [Moles/Vol] 99 mmol/L 97 - 10 5 mmol/L [facility] CO2 [Moles/Vol] 26 mmol/L 22 - 30 mmol/L [facility] Creatinine [Mass/Vol] 0.94 mg/dL 0.73 - 1.22 mg/dL [facility] Estimated Glomerular Filtration Rate 83 mL/min/1.73m >=60 mL/min/1.73m [facility] Glucose [Mass/Vol] 119 mg/dL High 74 - 99 mg/dL [facility] Potassium [Moles/Vol] 4.1 mmol/L 3.7 - 5.1 mmol/L [facility] Protein [Mass/Vol] 6.7 g/dL 6.3 - 8.0 g/dL [facility] Sodium [Moles/Vol] 136 mmol/L 136 - 144 mmol/L [facility] Urea nitrogen [Mass/Vol] 20 mg/dL 9 - 24 mg/dL [facility] CBC W Auto Differential pane l (Bld)on 09-17-2022 Basophils (Bld) [#/Vol] <0.11 k/uL [facility] Basophils/100 WBC (Bld) 0.2 % [facility] Differential cell count method Nom (Bld) Auto [facility] Eosinophils (Bld) [#/Vol] 0.04 10*3/uL <0.46 k/uL [facility] Eosinophils/100 WBC (Bld) 0.8 % [facility] Erythrocyte distribution width (RBC) [Ratio] 13.1 % 11.5 - 15.0 % [facility] Hematocrit (Bld) [Volume fraction] 39.8 % 39.0 - 51.0 % [facility] Hemoglobin (Bld) [Mass/Vol] 13.4 g/dL 13.0 - 17.0 g/dL [facility] Immature granulocytes (Bld) [#/Vol] <0.10 k/uL [facility] Immature granulocytes/100 WBC (Bld) 0.4 % [facility] Lymphocytes (Bld) [#/Vol] 0.40 10*3/uL Low 1.00 - 4.00 k/uL [facility] Lymphocytes/100 WBC (Bld) 7.8 % [facility] MCH (RBC) [Entitic mass] 30.3 pg 26.0 - 34.0 pg [facility] MCHC (RBC) [Mass/Vol] 33.7 g/dL 30.5 - 36.0 g/dL [facility] MCV (RBC) [Entitic vol] 90.0 fL 80.0 - 100.0 fL [facility] Monocytes (Bld) [#/Vol] 0.34 10*3/uL <0.87 k/uL [facility] Monocytes/100 WBC (Bld) 6.6 % [facility] Neutrophils (Bld) [#/Vol] 4.31 10*3/uL 1.45 - 7.50 k/uL [facility] Neutrophils/100 WBC (Bld) 84.2 % [facility] Nucleated RBC (Bld) [#/Vol] <0.01 k/uL [facility] Nucleated RBC/100 WBC (Bld) [Ratio] 0.0 /100 WBC [facility] Platelet mean volume (Bld) [Entitic vol] 9.4 fL 9.0 - 12.7 fL [facility] Platelets (Bld) [#/Vol] 198 10*3/uL 150 - 400 k/uL [facility] RBC (Bld) [#/Vol] 4.42 10*6/uL 4.20 - 6.0 0 m/uL [facility] WBC (Bld) [#/Vol] 5.12 10*3/uL 3.70 - 11. 00 k/uL [facility] Comprehensive metabolic 2000 panelon 09-17-2022 Albumin [Mass/Vol] 4.4 g/dL 3.9 - 4.9 g/dL [facility] ALP [Catalytic activity/Vol] 70 U/L 38 - 113 U/L [facility] ALT [Catalytic activity/Vol] 22 U/L 10 - 54 U/L [facility] Anion gap [Moles/Vol] 8 mmol/L Low 9 - 18 mmol/L [facility] AST [Catalytic activity/Vol] 15 U/L 14 - 40 U/L [facility] Bilirubin [Mass/Vol] 0.4 mg/dL 0.2 - 1 .3 mg/dL [facility] Calcium [Mass/Vol] 9.8 mg/dL 8.5 - 10. 2 mg/dL [facility] Chloride [Moles/Vol] 99 mmol/L 97 - 10 5 mmol/L [facility] CO2 [Moles/Vol] 28 mmol/L 22 - 30 mmol/L [facility] Creatinine [Mass/Vol] 0.83 mg/dL 0.73 - 1.22 mg/dL [facility] Estimated Glomerular Filtration Rate 90 mL/min/1.73m >=60 mL/min/1.73m [facility] Glucose [Mass/Vol] 125 mg/dL High 74 - 99 mg/dL [facility] Potassium [Moles/Vol] 4.1 mmol/L 3.7 - 5.1 mmol/L [facility] Protein [Mass/Vol] 6.8 g/dL 6.3 - 8.0 g/dL [facility] Sodium [Moles/Vol] 135 mmol/L Low 136 - 144 mmol/L [facility] Urea nitrogen [Mass/Vol] 28 mg/dL High 9 - 24 mg/dL [facility] PET+CT Guidance for localiza tion of tumor of Skull base to mid-thigh-- W 18F-FDG [place] 08-28-2022 IMPRESSION: 1. NECK: * Intensely FDG avid left base of tongue mass crossing midline to the right tongue base, consistent with neoplasm. * FDG avid left level 2A nodes, compatible with malignant shaneka involvement. * A normal sized right level 2A node with mild FDG activity, may represent a reactive lymph node although malignancy cannot be excluded. 2. CHEST: * No FDG avid neoplastic process. 3. ABDOMEN/PELVIS: * No FDG avid neoplastic process. 4. EXTREMITIES/SKELETON: * No suspicious FDG avid osseous lesion. Transcribe Date/Time: Aug 28 2022 9:51A Dictated by: DOUGLAS CHAU MD This examination was interpreted and the report reviewed and electronically signed by: DOUGLAS CHAU MD on Aug 28 2022 10:22PM EST Thank you for allowing us to participate in the care of your patient. Should there be any questions regarding this interpretation, please call [phone]. If you are unable to reach us at the number above, please feel free to contact [facility] eRadiology at [phone]. 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 INDICATION: Study performed for initial treatment strategy. TECHNIQUE: F18-FDG administered IV was followed about 60 minutes later by PET imaging from thoracic inlet to proximal thighs with additional head and neck imaging. Free breathing low dose CT was performed without contrast for attenuation correction and anatomic localization. Blood glucose before FDG injection: 137 mg/dL FDG radionuclide dose: 7.[address] Dose-Length Product (DLP): 252 mGy*cm. CT Dose Reduction Employed: Automated exposure control COMPARISON: No prior PET/CT for comparison. CORRELATION: simulation CT dated 08/23/2022, Neck CT dated 07/27/2022. RESULT: - Mediastinum blood pool activity: Max SUV: 3.0 HEAD AND NECK: Physiologic uptake seen in the visualized brain, extraocular muscles, and salivary glands. There is a large approximately 3.7 x 2.5 cm mass centered in the left base of tongue (image 135) with max SUV of 16.2, consistent with malignancy. FDG-avid soft tissue crosses the midline to the right base of tongue and extends to the left tonsillar/lateral pharyngeal wall. Lymph nodes with FDG activity includes: * 2.0 x 1.3 cm left level 2A node (image 133) with max SUV of 7.5. * 0.8 x 0.6 cm left level 2A node (image 124) with max SUV of 3.9. * 0.7 x 0.5 cm right level 2A node (image 133) with max SUV of 2.8. CHEST: Chest wall and axilla: No FDG avid axillary lymphadenopathy. Lungs and tracheobronchial tree and pleura: No FDG avid consolidation or FDG avid pulmonary nodule. Note that PET/CT is not sensitive for pulmonary nodules less than 8 mm. No FDG avid pleural effusion or pleural mass. Mediastinum and Lymph nodes: No FDG avid mediastinal mass, mediastinal or hilar lymphadenopathy. Heart and great vessels: Physiologic activity in the mediastinal blood pool. Coronary artery calcification ABDOMEN AND PELVIS: Physiologic uptake seen in the and GI tracts. Liver: No FDG avid lesion. Biliary: Gallbladder is unremarkable. Spleen: No FDG avid lesion. No splenomegaly. Pancreas: No FDG avid lesion. Adrenals: No FDG avid lesion. Kidneys: No stones, hydronephrosis, or FDG avid lesions. GI tract: No dilation or focal suspicious FDG avid lesion. Lymph nodes: No FDG avid abdominal or pelvic lymphadenopathy. Mesentery/Peritoneum: No ascites or FDG avid mass. Vasculature: Vascular patency cannot be assessed due to lack of IV contrast. Atherosclerotic calcifications of the abdominal aorta and iliac vessels without aneurysm. Pelvis: No ascites, fluid collection or FDG avid process. BONES AND EXTREMITIES: No suspicious FDG avid osseous lesion. The imaged portions of the skeleton demonstrates age-related degenerative changes. No destructive osseous lesions. Paint Coating Machine Operator (topogram) images: No additional findings. 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 INDICATION: Study performed for initial treatment strategy. TECHNIQUE: F18-FDG administered IV was followed about 60 minutes later by PET imaging from thoracic inlet to proximal thighs with additional head and neck imaging. Free breathing low dose CT was performed without contrast for attenuation correction and anatomic localization. Blood glucose before FDG injection: 137 mg/dL FDG radionuclide dose: 7.[address] Dose-Length Product (DLP): 252 mGy*cm. CT Dose Reduction Employed: Automated exposure control COMPARISON: No prior PET/CT for comparison. CORRELATION: simulation CT dated 08/23/2022, Neck CT dated 07/27/2022. RESULT: - Mediastinum blood pool activity: Max SUV: 3.0 HEAD AND NECK: Physiologic uptake seen in the visualized brain, extraocular muscles, and salivary glands. There is a large approximately 3.7 x 2.5 cm mass centered in the left base of tongue (image 135) with max SUV of 16.2, consistent with malignancy. FDG-avid soft tissue crosses the midline to the right base of tongue and extends to the left tonsillar/lateral pharyngeal wall. Lymph nodes with FDG activity includes: * 2.0 x 1.3 cm left level 2A node (image 133) with max SUV of 7.5. * 0.8 x 0.6 cm left level 2A node (image 124) with max SUV of 3.9. * 0.7 x 0.5 cm right level 2A node (image 133) with max SUV of 2.8. CHEST: Chest wall and axilla: No FDG avid axillary lymphadenopathy. Lungs and tracheobronchial tree and pleura: No FDG avid consolidation or FDG avid pulmonary nodule. Note that PET/CT is not sensitive for pulmonary nodules less than 8 mm. No FDG avid pleural effusion or pleural mass. Mediastinum and Lymph nodes: No FDG avid mediastinal mass, mediastinal or hilar lymphadenopathy. Heart and great vessels: Physiologic activity in the mediastinal blood pool. Coronary artery calcification ABDOMEN AND PELVIS: Physiologic uptake seen in the and GI tracts. Liver: No FDG avid lesion. Biliary: Gallbladder is unremarkable. Spleen: No FDG avid lesion. No splenomegaly. Pancreas: No FDG avid lesion. Adrenals: No FDG avid lesion. Kidneys: No stones, hydronephrosis, or FDG avid lesions. GI tract: No dilation or focal suspicious FDG avid lesion. Lymph nodes: No FDG avid abdominal or pelvic lymphadenopathy. Mesentery/Peritoneum: No ascites or FDG avid mass. Vasculature: Vascular patency cannot be assessed due to lack of IV contrast. Atherosclerotic calcifications of the abdominal aorta and iliac vessels without aneurysm. Pelvis: No ascites, fluid collection or FDG avid process. BONES AND EXTREMITIES: No suspicious FDG avid osseous lesion. The imaged portions of the skeleton demonstrates age-related degenerative changes. No destructive osseous lesions. Paint Coating Machine Operator (topogram) images: No additional findings. IMPRESSION IMPRESSION: 1. NECK: * Intensely FDG avid left base of tongue mass crossing midline to the right tongue base, consistent with neoplasm. * FDG avid left level 2A nodes, compatible with malignant shaneka involvement. * A normal sized right level 2A node with mild FDG activity, may represent a reactive lymph node although malignancy cannot be excluded. 2. CHEST: * No FDG avid neoplastic process. 3. ABDOMEN/PELVIS: * No FDG avid neoplastic process. 4. EXTREMITIES/SKELETON: * No suspicious FDG avid osseous lesion. Transcribe Date/Time: Aug 28 2022 9:51A Dictated by: DOUGLAS CHAU MD This examination was interpreted and the report reviewed and electronically signed by: DOUGLAS CHAU MD on Aug 28 2022 10:22PM EST Thank you for allowing us to participate in the care of your patient. Should there be any questions regarding this interpretation, please call [phone]. If you are unable to reach us at the number above, please feel free to contact [facility] eRadiology at [phone]. [facility] PET+CT Guidance for localiza tion of tumor of Skull base to mid-thigh-- W 18F-FDG IVOrdered By: [facility] Provider on 08-28-2022 [facility] GLUCOSE, BLOOD (POC)on 08-27 Glucose [Mass/Vol] 137 mg/dL Abnormal 74 - 99 mg/dL [facility] Comment on above: Location:[facility], [address] [place] [address] , [place], [place], [facility] The Accu-Chek Inform II glucose meter has not been approved for testing on patients receiving intensive medical intervention or therapy and results from this point of care glucose test should not be used for patient management decisions in these cases. Inaccurate results may also occur from other interfering factors, such as N-acetylcysteine (blood concentrations of greater than 5mg/dL), galactose, extremes of hematocrit (<10 or >65), or high doses of ascorbic acid (vitamin C) greater than 3mg/dL. Consider alternate testing mechanisms (e.g. core lab, blood gas instrument) in the above situations. Interpretation and review of laboratory results Abnormal [facility] PET+CT Guidance for localiza tion of tumor of Skull base to mid-thigh-- W 18F-FDG [place] 08-27-2022 Radiology Study observation (narrative) [facility] CBC W Auto Differential pane l (Bld)on 08-23-2022 Basophils (Bld) [#/Vol] 0.05 10*3/uL <0.11 k/uL [facility] Basophils/100 WBC (Bld) 0.8 % [facility] Differential cell count method Nom (Bld) Auto [facility] Eosinophils (Bld) [#/Vol] 0.05 10*3/uL <0.46 k/uL [facility] Eosinophils/100 WBC (Bld) 0.8 % [facility] Erythrocyte distribution width (RBC) [Ratio] 13.2 % 11.5 - 15.0 % [facility] Hematocrit (Bld) [Volume fraction] 43.8 % 39.0 - 51.0 % [facility] Hemoglobin (Bld) [Mass/Vol] 14.7 g/dL 13.0 - 17.0 g/dL [facility] Immature granulocytes (Bld) [#/Vol] <0.10 k/uL [facility] Immature granulocytes/100 WBC (Bld) 0.3 % [facility] Lymphocytes (Bld) [#/Vol] 1.55 10*3/uL 1.00 - 4.00 k/uL [facility] Lymphocytes/100 WBC (Bld) 25.7 % [facility] MCH (RBC) [Entitic mass] 30.6 pg 26.0 - 34.0 pg [facility] MCHC (RBC) [Mass/Vol] 33.6 g/dL 30.5 - 36.0 g/dL [facility] MCV (RBC) [Entitic vol] 91.3 fL 80.0 - 100.0 fL [facility] Monocytes (Bld) [#/Vol] 0.51 10*3/uL <0.87 k/uL [facility] Monocytes/100 WBC (Bld) 8.5 % [facility] Neutrophils (Bld) [#/Vol] 3.85 10*3/uL 1.45 - 7.50 k/uL [facility] Neutrophils/100 WBC (Bld) 63.9 % [facility] Nucleated RBC (Bld) [#/Vol] <0.01 k/uL [facility] Nucleated RBC/100 WBC (Bld) [Ratio] 0.0 /100 WBC [facility] Platelet mean volume (Bld) [Entitic vol] 9.4 fL 9.0 - 12.7 fL [facility] Platelets (Bld) [#/Vol] 340 10*3/uL 150 - 400 k/uL [facility] RBC (Bld) [#/Vol] 4.80 10*6/uL 4.20 - 6.0 0 m/uL [facility] WBC (Bld) [#/Vol] 6.03 10*3/uL 3.70 - 11. 00 k/uL [facility] Comprehensive metabolic 2000 panelon 08-23-2022 Albumin [Mass/Vol] 4.6 g/dL 3.9 - 4.9 g/dL [facility] ALP [Catalytic activity/Vol] 66 U/L 38 - 113 U/L [facility] ALT [Catalytic activity/Vol] 16 U/L 10 - 54 U/L [facility] Anion gap [Moles/Vol] 8 mmol/L Low 9 - 18 mmol/L [facility] AST [Catalytic activity/Vol] 19 U/L 14 - 40 U/L [facility] Bilirubin [Mass/Vol] 0.5 mg/dL 0.2 - 1 .3 mg/dL [facility] Calcium [Mass/Vol] 10.0 mg/dL 8.5 - 10. 2 mg/dL [facility] Chloride [Moles/Vol] 102 mmol/L 97 - 10 5 mmol/L [facility] CO2 [Moles/Vol] 30 mmol/L 22 - 30 mmol/L [facility] Creatinine [Mass/Vol] 0.97 mg/dL 0.73 - 1.22 mg/dL [facility] Estimated Glomerular Filtration Rate 80 mL/min/1.73m >=60 mL/min/1.73m [facility] Glucose [Mass/Vol] 101 mg/dL High 74 - 99 mg/dL [facility] Potassium [Moles/Vol] 4.5 mmol/L 3.7 - 5.1 mmol/L [facility] Protein [Mass/Vol] 7.5 g/dL 6.3 - 8.0 g/dL [facility] Sodium [Moles/Vol] 140 mmol/L 136 - 144 mmol/L [facility] Urea nitrogen [Mass/Vol] 18 mg/dL 9 - 24 mg/dL [facility] POINT OF CARE GLUCOSEon 07-09 Glucose [Mass/Vol] 149 mg/dL Critically high 74-106 [facility] Comment on above: Performed By: #### P OCGLUC #### [facility] [place] [facility] [address] [address] [address] Mikayla Galan Reminderson 07-31-2022 Reminders - From: Voilet Guidry LPN To: N - Clinical; Sent: 07/31/2022 13:14:12 EST Show up: 06/17/2024 07:00:00 EST Subject: colonoscopy recall Due Date/Time: 07/18/2024 07:00:00 EST Reminder/Recall Patient is due for colonoscopy 07/18/2024 due to history of tubular adenoma. Correction, due 07/18/2025. Normal [facility] CBC AUTO DIFFon 07-27-2022 BASO # 0.0 103/ul Normal 0.0-0.1 [facility] Comment on above: Performed By: #### C BC #### [facility] [place] [facility] [address] [place] [address] Dr. Mikayla Galan Basophils/100 WBC (Bld) 0.4 % Normal 0.2-2.0 [facility] Comment on above: Performed By: #### C BC #### [facility] [place] [facility] [address] [address] [address] Mikayla Galan EO # 0.1 103/ul Normal 0.0-0.7 [facility] Comment on above: Performed By: #### C BC #### [facility] [place] [facility] [address] [address] [address] Mikayla Galan Eosinophils/100 WBC (Bld) 1.5 % Normal 0.9-7.0 [facility] Comment on above: Performed By: #### C BC #### [facility] [place] [facility] [address] [address] [address] Mikayla Galan Erythrocyte distribution width (RBC) [Ratio] 13.2 % Normal 11.0-15.0 [facility] Comment on above: Performed By: #### C BC #### [facility] [place] [facility] [address] [place] [address] Dr. Mikayla Galan Hematocrit (Bld) [Volume fraction] 41.7 % Critically low 42.0-54.0 [facility] Comment on above: Performed By: #### C BC #### [facility] [place] [facility] [address] [address] [address] Mikayla Galan Hemoglobin (Bld) [Mass/Vol] 13.9 g/dL Critically low 14.0-18.0 [facility] Comment on above: Performed By: #### C BC #### [facility] [place] [facility] [address] [place] [address] Dr. Mikayla Galan IG # 0.02 10e3/ul Normal 0.00-0.03 [facility] Comment on above: Performed By: #### C BC #### [facility] [place] [facility] [address] [place] [address] Dr. Mikayla Galan IG % 0.4 % Normal 0.0-0.5 [facility] Comment on above: Performed By: #### C BC #### [facility] [place] [facility] [address] [place] [address] Dr. Mikayla Gaaln LYMPH # 1.1 103/ul Critically low 1.2-3.8 [facility] Comment on above: Performed By: #### C BC #### [facility] [place] [facility] [address] [place] [address] Dr. Mikayla Galan Lymphocytes/100 WBC (Bld) 24.7 % Normal 20.5-60.0 [facility] Comment on above: Performed By: #### C BC #### [facility] [place] [facility] [address] [place] [address] Dr. Mikayla Galan MANUAL DIFF REQ NO Normal [facility] Comment on above: Performed By: #### C BC #### [facility] [place] [facility] [address] [place] [address] Dr. Mikayla Galan MCH (RBC) [Entitic mass] 30.5 pg Normal 25.9-34.0 [facility] Comment on above: Performed By: #### C BC #### [facility] [place] [facility] [address] [place] [address] Dr. Mikayla Galan MCHC (RBC) [Mass/Vol] 33.3 g/dL Normal 29.9-35.2 [facility] Comment on above: Performed By: #### C BC #### [facility] [place] [facility] [address] [place] [address] Dr. Mikayla Galan MCV (RBC) [Entitic vol] 91.4 fL Normal 80.0-94.0 [facility] Comment on above: Performed By: #### C BC #### [facility] [place] [facility] [address] [address] [address] Mikayla Galan MONO # 0.4 103/ul Normal 0.3-0.8 [facility] Comment on above: Performed By: #### C BC #### [facility] [place] [facility] [address] [address] [address] Mikayla Galan Monocytes/100 WBC (Bld) 8.4 % Normal 1.7-12.0 [facility] Comment on above: Performed By: #### C BC #### [facility] [place] [facility] [address] [address] [address] Mikayla Galan NEUT # 2.9 103/ul Normal 1.4-6.5 [facility] Comment on above: Performed By: #### C BC #### [facility] [place] [facility] [address] [place] [address] Dr. Mikayla Galan Neutrophils/100 WBC (Bld) 64.6 % Normal 43.0-75.0 [facility] Comment on above: Performed By: #### C BC #### [facility] [place] [facility] [address] [address] [address] Mikayla Galan Platelet mean volume (Bld) [Entitic vol] 9.5 fL Normal 9.5-13.5 [facility] Comment on above: Performed By: #### C BC #### [facility] [place] [facility] [address] [place] [address] Dr. Mikayla Galan PLT 293 103/ul Normal 150-450 [facility] [place] Comment on above: Performed By: #### C BC #### [facility] [place] [facility] [address] [address] [address] Mikayla Galan RBC 4.56 106/ul Critically low 4.70-6.10 [facility] Comment on above: Performed By: #### C BC #### [facility] [place] [facility] [address] [address] [address] Mikayla Galan WBC 4.5 103/ul Normal 4.0-11.0 [facility] [place] Comment on above: Performed By: #### C BC #### [facility] [place] [facility] [address] [address] [address] NECK ST W [...] CHAU JUNG Date: 2022-07-27 13:04 Normal [facility] [place] Covid-19 PCR (CVDTBH)on 07-09 SARS-CoV-2 (COVID-19) RNA IRIS+probe Ql (Unsp spec) Not detected Normal NOT DETECTED [facility] [place] Comment on above: Result Comment: This test is not yet approved or cleared by the [place] FDA. When there are no FDA-approved or cleared tests available, and other criteria are met, FDA can make tests available under an emergency access mechanism called an Emergency Use Authorization (EUA). The EUA for this test is supported by the Salvage Supervisor of Health and Human Service's (HHS's) declaration [...] SARS-CoV-2. Performed By: #### P OCGLUC #### [facility] [place] [facility] [address] [place] [address] Dr. Mikayla Galan PROF CHEM 8 (BAS METB)on Anion gap [Moles/Vol] 10.2 mmol/L Normal [facility] Comment on above: Performed By: #### B MP #### [facility] [place] [facility] [address] [place] [address] Dr. Mikayla Galan Calcium [Mass/Vol] 9.2 mg/dL Normal 8.5-10.[address] [facility] Comment on above: Performed By: #### B MP #### [facility] [place] [facility] [address] [place] [address] Dr. Mikayla Galan Chloride [Moles/Vol] 103 mmol/L Normal 98-107 [facility] [place] Comment on above: Performed By: #### B MP #### [facility] [place] [facility] [address] [place] [address] Dr. Mikayla Galan CO2 [Moles/Vol] 31.3 mmol/L Normal 21.0-32.0 [facility] Comment on above: Performed By: #### B MP #### [facility] [place] [facility] [address] [place] [address] Dr. Mikayla Gaaln Creatinine [Mass/Vol] 0.98 mg/dL Normal 0.70-1.30 [facility] [place] Comment on above: Performed By: #### B MP #### [facility] [place] [facility] [address] [address] [address] Mikayla Galan EGFR-AF BAHRAINI >60 Normal >=60 [facility] Comment on above: Performed By: #### B MP #### [facility] [place] [facility] [address] [address] [address] Mikayla Galan EGFR-NON AF BAHRAINI >60 Normal >=60 [facility] Comment on above: Performed By: #### B MP #### [facility] [place] [facility] [address] [address] [address] Mikayla Galan Glucose [Mass/Vol] 133 mg/dL Critically high 74-106 [facility] Comment on above: Performed By: #### B MP #### [facility] [place] [facility] [address] [place] [address] Dr. Mikayla Galan Potassium [Moles/Vol] 4.5 mmol/L Normal 3.5-5.1 [facility] Comment on above: Performed By: #### B MP #### [facility] [place] [facility] [address] [place] [address] Dr. Mikayla Galan Sodium [Moles/Vol] 140 mmol/L Normal 136-145 [facility] Comment on above: Performed By: #### B MP #### [facility] [place] [facility] [address] [place] [address] Dr. Mikayla Galan Urea nitrogen [Mass/Vol] 21.0 mg/dL Critically high 7.0-18.0 [facility] Comment on above: Performed By: #### B MP #### [facility] [place] [facility] [address] [place] [address] Dr. Mikayla Galan Urea nitrogen/Creatinine [Mass ratio] 21.4 mg/mg Normal [facility] Comment on above: Performed By: #### B MP #### [facility] [place] [facility] [address] [place] [address] Dr. Mikayla Galan PROTIMEon 07-27-2022 INR Coag (PPP) [Relative time] 1.04 {INR} Normal [facility] Comment on above: Performed By: #### P T, PTT #### [facility] [place] [facility] [address] [place] [address] Dr. Mikayla Galan INR GUIDELINES SEE BELOW Normal [facility] Comment on above: Result Comment: VANESSA RED INR: 2.0 - 3.0 CONDITIONS NOT LISTED BELOW 2.5 - 3.5 FOR PROSTHETIC HEART VALVE REPLACEMENT 2.5 - 3.5 RECURRENT THROMBOSIS Performed By: #### P T, PTT #### [facility] [place] [facility] [address] [place] [address] Dr. Mikayla Galan PT Coag (PPP) [Time] 11.0 s Normal 9.0-11.6 [facility] Comment on above: Performed By: #### P T, PTT #### [facility] [place] [facility] [address] [address] [address] Mikayla Galan PTTon 07-27-2022 aPTT Coag (Bld) [Time] 28.6 s Normal 22.3-36.2 [facility] Comment on above: Performed By: #### P OCGLUC #### [facility] [place] [facility] [address] [place] [address] Dr. Mikayla Galan Pathology Noteon 07-20-2022 Pathology Note [id number]:127 Normal [facility] Outside Colonoscopyon 2022 Outside Colonoscopy [id number]:127 Normal [facility] POINT OF CARE GLUCOSEon 07-08 Glucose [Mass/Vol] 94 mg/dL Normal 74-106 [facility] Comment on above: Performed By: #### P OCGLUC #### [facility] [address] [place] [address] Dr. Mikayla Galan Lab Reportson 07-12-2022 Lab Reports [id number] .[id number]:127 Normal [facility] Covid-19 PCR (CVDTBH)on SARS-CoV-2 (COVID-19) RNA IRIS+probe Ql (Unsp spec) Not detected Normal NOT DETECTED [facility] Comment on above: Result Comment: This test is not yet approved or cleared by the [place] FDA. When there are no FDA-approved or cleared tests available, and other criteria are met, FDA can make tests available under an emergency access mechanism called an Emergency Use Authorization (EUA). The EUA for this test is supported by the [place] of Health and Human Service's (HHS's) declaration [...] SARS-CoV-2. Performed By: #### P OCGLUC #### [facility] [address] [place] [address] Dr. Mikayla Galan Consent for Procedure/Surger yon 06-15-2022 Consent for Procedure/Surgery [id number]:127 Normal [facility] US THYROIDon 06-11-2022 US THYROID EXAMINATION: US [...] QUANG JOHNSON Date: 2022-06-11 07:17 Normal [facility] Provider Letteron 05-15-2022 Provider Letter May 15, 2022 [place] ROOT [address] [id number] MANISH ROOT 1945 Dear Manish , We have been trying to reach you with no success. It is important that you return our call regarding your referral from Dr. Nelson upon receiving this letter. Also, at the time of your call, please provide us with your current information. Thank you for your prompt attention to this matter. Sincerely, General Surgery [phone] Normal [facility] CBC AUTO DIFFon 02-27-2022 BASO # 0.0 103/ul Normal 0.0-0.1 [facility] Comment on above: Performed By: #### C BC #### [facility] [address] [address] [address] Mikayla Galan Basophils/100 WBC (Bld) 0.6 % Normal 0.2-2.0 [facility] Comment on above: Performed By: #### C BC #### [facility] [address] [place] [address] Dr. Mikayla Galan EO # 0.1 103/ul Normal 0.0-0.7 [facility] Comment on above: Performed By: #### C BC #### [facility] [address] [place] [address] Dr. Mikayla Galan Eosinophils/100 WBC (Bld) 1.4 % Normal 0.9-7.0 [facility] Comment on above: Performed By: #### C BC #### [facility] [address] [place] [address] Dr. Mikayla Galan Erythrocyte distribution width (RBC) [Ratio] 12.6 % Normal 11.0-15.0 [facility] Comment on above: Performed By: #### C BC #### [facility] [address] [place] [address] Dr. Mikayla Galan Hematocrit (Bld) [Volume fraction] 41.8 % Critically low 42.0-54.0 [facility] Comment on above: Performed By: #### C BC #### [facility] [address] [place] [address] Dr. Mikayla Galan Hemoglobin (Bld) [Mass/Vol] 13.9 g/dL Critically low 14.0-18.0 [facility] Comment on above: Performed By: #### C BC #### [facility] [address] [place] [address] Dr. Mikayla Galan IG # 0.03 10e3/ul Normal 0.00-0.03 [facility] Comment on above: Performed By: #### C BC #### [facility] [address] [place] [address] Dr. Mikayla Galan IG % 0.6 % Critically high 0.0-0.5 [facility] Comment on above: Performed By: #### C BC #### [facility] [address] [place] [address] Dr. Mikayla Galan LYMPH # 1.0 103/ul Critically low 1.2-3.8 [facility] Comment on above: Performed By: #### C BC #### [facility] [address] [place] [address] Dr. Mikayla Galan Lymphocytes/100 WBC (Bld) 19.9 % Critically low 20.5-60.0 [facility] Comment on above: Performed By: #### C BC #### [facility] [address] [place] [address] Dr. Mikayla Galan MANUAL DIFF REQ NO Normal [facility] Comment on above: Performed By: #### C BC #### [facility] [address] [place] [address] Dr. Mikayla Galan MCH (RBC) [Entitic mass] 31.0 pg Normal 25.9-34.0 [facility] Comment on above: Performed By: #### C BC #### [facility] [address] [place] [address] Dr. Mikayla Galan MCHC (RBC) [Mass/Vol] 33.3 g/dL Normal 29.9-35.2 [facility] Comment on above: Performed By: #### C BC #### [facility] [address] [place] [address] Dr. Mikayla Galan MCV (RBC) [Entitic vol] 93.3 fL Normal 80.0-94.0 [facility] Comment on above: Performed By: #### C BC #### [facility] [address] [place] [address] Dr. Mikayla Galan MONO # 0.5 103/ul Normal 0.3-0.8 [facility] Comment on above: Performed By: #### C BC #### [facility] [address] [place] [address] Dr. Mikayla Galan Monocytes/100 WBC (Bld) 8.9 % Normal 1.7-12.0 [facility] Comment on above: Performed By: #### C BC #### [facility] [address] [place] [address] Dr. Mikayla Galan NEUT # 3.5 103/ul Normal 1.4-6.5 [facility] Comment on above: Performed By: #### C BC #### [facility] [address] [place] [address] Dr. Mikayla Galan Neutrophils/100 WBC (Bld) 68.6 % Normal 43.0-75.0 [facility] Comment on above: Performed By: #### C BC #### [facility] [address] [place] [address] Dr. Mikayla Galan Platelet mean volume (Bld) [Entitic vol] 9.6 fL Normal 9.5-13.5 [facility] Comment on above: Performed By: #### C BC #### [facility] [address] [place] [address] Dr. Mikayla Galan PLT 280 103/ul Normal 150-450 [facility] Comment on above: Performed By: #### C BC #### [facility] [address] [place] [address] Dr. Mikayla Galan RBC 4.48 106/ul Critically low 4.70-6.10 [facility] Comment on above: Performed By: #### C BC #### [facility] [address] [place] [address] Dr. Mikayla Galan WBC 5.1 103/ul Normal 4.0-11.0 [facility] Comment on above: Performed By: #### C BC #### [facility] [address] [place] [address] Dr. Mikayla Galan GLYCOHEMOGLOBIN A1Con 2021 ADA RECOMMENDATION SEE BELOW Normal [facility] Comment on above: Result Comment: ADA RECOMMENDED LIMIT 4.0 - 6.0 ADA THERAPEUTIC TARGET < 7.0 ACTION SUGGESTED > 7.0 Performed By: #### A 1C #### [facility] [address] [place] [address] Dr. Mikayla Galan Glucose [Mass/Vol] 183 mg/dL Normal [facility] Comment on above: Performed By: #### A 1C #### [facility] [address] [place] [address] Dr. Mikayla Galan HbA1c (Bld) [Mass fraction] 8.0 % Critically high 4.5-6.2 [facility] Comment on above: Performed By: #### A 1C #### [facility] [address] [place] [address] Dr. Mikayla Galan PROF 14(COMP METB)on 022 Albumin [Mass/Vol] 3.8 g/dL Normal 3.4-5.0 [facility] Comment on above: Performed By: #### C MP #### [facility] [address] [place] [address] Dr. Mikayla Galan Albumin/Globulin [Mass ratio] 1.2 {ratio} Normal [facility] Comment on above: Performed By: #### C MP #### [facility] [address] [place] [address] Dr. Mikayla Galan ALP [Catalytic activity/Vol] 111 U/L Normal 46-116 [facility] Comment on above: Performed By: #### C MP #### [facility] [address] [place] [address] Dr. Mikayla Galan ALT [Catalytic activity/Vol] 50 U/L Normal 16-63 [facility] Comment on above: Performed By: #### C MP #### [facility] [address] [place] [address] Dr. Mikayla Galan Anion gap [Moles/Vol] 11.5 mmol/L Normal [facility] Comment on above: Performed By: #### C MP #### [facility] [address] [place] [address] Dr. Mikayla Galan AST [Catalytic activity/Vol] 27 U/L Normal 15-37 [facility] Comment on above: Performed By: #### C MP #### [facility] [address] [place] [address] Dr. Mikayla Galan Bilirubin [Mass/Vol] 0.5 mg/dL Normal 0.2-1.0 [facility] Comment on above: Performed By: #### C MP #### [facility] [address] [place] [address] Dr. Mikayla Gaaln Calcium [Mass/Vol] 9.0 mg/dL Normal 8.5-10.1 [facility] Comment on above: Performed By: #### C MP #### [facility] [address] [place] [address] Dr. Mikayla Galan Chloride [Moles/Vol] 101 mmol/L Normal 98-107 [facility] Comment on above: Performed By: #### C MP #### [facility] [address] [place] [address] Dr. Mikayla Galan CO2 [Moles/Vol] 27.7 mmol/L Normal 21.0-32.0 [facility] Comment on above: Performed By: #### C MP #### [facility] [address] [place] [address] Dr. Mikayla Galan Creatinine [Mass/Vol] 1.17 mg/dL Normal 0.70-1.30 [facility] Comment on above: Performed By: #### C MP #### [facility] [address] [place] [address] Dr. Mikayla Galan EGFR-AF BAHRAINI >60 Normal >=60 [facility] Comment on above: Performed By: #### C MP #### [facility] [address] [place] [address] Dr. Mikayla Galan EGFR-NON AF BAHRAINI =60 Normal >=60 [facility] Comment on above: Performed By: #### C MP #### [facility] [address] [place] [address] Dr. Mikayla Galan Globulin (S) [Mass/Vol] 3.3 g/dL Normal [facility] Comment on above: Performed By: #### C MP #### [facility] [address] [address] [address] Mikayla Galan Glucose [Mass/Vol] 233 mg/dL Critically high 74-106 [facility] Comment on above: Performed By: #### C MP #### [facility] [address] [address] [address] Mikayla Galan Potassium [Moles/Vol] 4.2 mmol/L Normal 3.5-5.1 [facility] Comment on above: Performed By: #### C MP #### [facility] [address] [address] [address] Mikayla Galan Protein [Mass/Vol] 7.1 g/dL Normal 6.4-8.2 [facility] Comment on above: Performed By: #### C MP #### [facility] [address] [place] [address] Dr. Mikayla Galan Sodium [Moles/Vol] 136 mmol/L Normal 136-145 [facility] Comment on above: Performed By: #### C MP #### [facility] [address] [address] [address] Mikayla Galan Urea nitrogen [Mass/Vol] 15.0 mg/dL Normal 7.0-18.0 [facility] Comment on above: Performed By: #### C MP #### [facility] [address] [place] [address] Dr. Mikayla Galan Urea nitrogen/Creatinine [Mass ratio] 12.8 mg/mg Normal [facility] Comment on above: Performed By: #### C MP #### [facility] [address] [address] [address] Mikayla Galan Physician Referralon 022 Physician Referral [id number]:127 Normal [facility] Vital Signs Date Time Vital Sign Value Performing Clinician Facility 04-07-2024 12:090400 Body height 170.[address] [facility] 04-07-2024 12:090400 Body mass index (BMI) [Ratio] 30.1 kg/m2 [facility] 04-07-2024 12:09-0400 Body temperature 97.3 [degF] [facility] 04-07-2024 12:09-0400 Body weight 87.[address] [facility] 04-07-2024 12:09-0400 Diastolic blood pressure 72 mm[Hg] [facility] 04-07-2024 12:09-0400 Heart rate 63 /min [facility] 04-07-2024 12:09-0400 Respiratory rate 18 /min [facility] 04-07-2024 12:09-0400 SaO2% (BldA) [Mass fraction] 97 % [facility] 04-07-2024 12:09-0400 Systolic blood pressure 137 mm[Hg] [facility] 01-14-2024 13:29-0400 Body height 167.[address] [facility] 01-14-2024 13:29-0400 Body mass index (BMI) [Ratio] 30.5 kg/m2 [facility] 01-14-2024 13:29-0400 Body temperature 97.4 [degF] [facility] 01-14-2024 13:29-0400 Body weight 85.[address] [facility] 01-14-2024 13:29-0400 Diastolic blood pressure 70 mm[Hg] [facility] 01-14-2024 13:29-0400 Heart rate 66 /min [facility] 01-14-2024 13:29-0400 Respiratory rate 18 /min [facility] 01-14-2024 13:29-0400 SaO2% (BldA) [Mass fraction] 92 % [facility] 01-14-2024 13:29-0400 Systolic blood pressure 112 mm[Hg] [facility] 11-06-2023 09:51-0400 Body mass index (BMI) [Ratio] 31.73 kg/m2 BARRON Feliz MD Work Phone: [facility] 11-06-2023 09:51-0400 Body temperature 97.11 [degF] BARRON Feliz MD Work Phone: [facility] 11-06-2023 09:51-0400 Body weight 88.4 kg BARRON Feliz MD Work Phone: [facility] 11-06-2023 09:51-0400 Diastolic blood pressure 77 mm[Hg] BARRON Feliz MD Work Phone: [facility] 11-06-2023 09:51-0400 Heart rate 58 /min BARRON Feliz MD Work Phone: [facility] 11-06-2023 09:51-0400 Respiratory rate 16 /min BARRON Feliz MD Work Phone: [facility] 11-06-2023 09:51-0400 SaO2% (BldA) [Mass fraction] 99 % BARRON Feliz MD Work Phone: [facility] 11-06-2023 09:51-0400 Systolic blood pressure 163 mm[Hg] BARRON Feliz MD Work Phone: [facility] 10-23-2023 10:56-0400 Body height 166.9 cm John England MD Work Phone: [facility] 10-23-2023 10:56-0400 Body temperature 97.81 [degF] John England MD Work Phone: [facility] 10-23-2023 10:56-0400 Body weight 87.5 kg John England MD Work Phone: [facility] 10-23-2023 10:56-0400 Diastolic blood pressure 70 mm[Hg] John England MD Work Phone: [facility] 10-23-2023 10:56-0400 Heart rate 54 /min John England MD Work Phone: [facility] 10-23-2023 10:56-0400 Respiratory rate 16 /min John England MD Work Phone: [facility] 10-23-2023 10:56-0400 SaO2% (BldA) [Mass fraction] 98 % John England MD Work Phone: [facility] 10-23-2023 10:56-0400 Systolic blood pressure 144 mm[Hg] John England MD Work Phone: [facility] 05-08-2023 11:14-0400 Body temperature 97.11 [degF] BARRON Feliz MD Work Phone: [facility] 05-08-2023 11:14-0400 Body weight 80.2 kg BARRON Feliz MD Work Phone: [facility] 05-08-2023 11:14-0400 Diastolic blood pressure 104 mm[Hg] BARRON Feliz MD Work Phone: [facility] 05-08-2023 11:14-0400 Heart rate 58 /min BARRON Feliz MD Work Phone: [facility] 05-08-2023 11:14-0400 Respiratory rate 16 /min BARRON Feliz MD Work Phone: [facility] 05-08-2023 11:14-0400 SaO2% (BldA) [Mass fraction] 98 % BARRON Feliz MD Work Phone: [facility] 05-08-2023 11:14-0400 Systolic blood pressure 168 mm[Hg] BARRON Feliz MD Work Phone: [facility] 03-20-2023 12:55-0400 Body height 166.9 cm John England MD Work Phone: [facility] 03-20-2023 12:55-0400 Body temperature 97.9 [degF] John England MD Work Phone: [facility] 03-20-2023 12:55-0400 Body weight 79.92 kg John England MD Work Phone: [facility] 03-20-2023 12:55-0400 Diastolic blood pressure 65 mm[Hg] John England MD Work Phone: [facility] 03-20-2023 12:55-0400 Heart rate 59 /min John England MD Work Phone: [facility] 03-20-2023 12:55-0400 Respiratory rate 16 /min John England MD Work Phone: [facility] 03-20-2023 12:55-0400 SaO2% (BldA) [Mass fraction] 98 % John England MD Work Phone: [facility] 03-20-2023 12:55-0400 Systolic blood pressure 139 mm[Hg] John England MD Work Phone: [facility] 02-06-2023 11:59-0400 Body temperature 97.3 [degF] BARRON Feliz MD Work Phone: [facility] 02-06-2023 11:59-0400 Body weight 80.74 kg BARRON Feliz MD Work Phone: [facility] 02-06-2023 11:59-0400 Diastolic blood pressure 67 mm[Hg] BARRON Feliz MD Work Phone: [facility] 02-06-2023 11:59-0400 Heart rate 56 /min BARRON Feliz MD Work Phone: [facility] 02-06-2023 11:59-0400 Respiratory rate 16 /min BARRON Feliz MD Work Phone: [facility] 02-06-2023 11:59-0400 Systolic blood pressure 142 mm[Hg] BARRON Feliz MD Work Phone: [facility] 02-06-2023 11:29-0400 Body height 166.9 cm John England MD Work Phone: [facility] 02-06-2023 11:29-0400 Body temperature 97.3 [degF] John England MD Work Phone: [facility] 02-06-2023 11:29-0400 Body weight 80.92 kg John England MD Work Phone: [facility] 02-06-2023 11:29-0400 Diastolic blood pressure 67 mm[Hg] John England MD Work Phone: [facility] 02-06-2023 11:29-0400 Heart rate 56 /min John England MD Work Phone: [facility] 02-06-2023 11:29-0400 Respiratory rate 16 /min John England MD Work Phone: [facility] 02-06-2023 11:29-0400 SaO2% (BldA) [Mass fraction] 98 % John England MD Work Phone: [facility] 02-06-2023 11:29-0400 Systolic blood pressure 142 mm[Hg] John England MD Work Phone: [facility] 11-28-2022 14:37-0400 Body temperature 96.69 [degF] BARRON Feliz MD Work Phone: [facility] 11-28-2022 14:37-0400 Body weight 78.47 kg BARRON Feliz MD Work Phone: [facility] 11-28-2022 14:37-0400 Diastolic blood pressure 69 mm[Hg] BARRON Feliz MD Work Phone: [facility] 11-28-2022 14:37-0400 Heart rate 66 /min BARRON Feliz MD Work Phone: [facility] 11-28-2022 14:37-0400 Respiratory rate 18 /min BARRON Feliz MD Work Phone: [facility] 11-28-2022 14:37-0400 SaO2% (BldA) [Mass fraction] 97 % BARRON Feliz MD Work Phone: [facility] 11-28-2022 14:37-0400 Systolic blood pressure 165 mm[Hg] BARRON Feliz MD Work Phone: [facility] 11-07-2022 09:21-0400 Body height 166.9 cm John England MD Work Phone: [facility] 11-07-2022 09:21-0400 Body temperature 97.5 [degF] John England MD Work Phone: [facility] 11-07-2022 09:21-0400 Body weight 78.11 kg John England MD Work Phone: [facility] 11-07-2022 09:21-0400 Diastolic blood pressure 66 mm[Hg] John England MD Work Phone: [facility] 11-07-2022 09:21-0400 Heart rate 58 /min John England MD Work Phone: [facility] 11-07-2022 09:21-0400 Respiratory rate 16 /min John England MD Work Phone: [facility] 11-07-2022 09:21-0400 SaO2% (BldA) [Mass fraction] 100 % John England MD Work Phone: [facility] 11-07-2022 09:21-0400 Systolic blood pressure 129 mm[Hg] John England MD Work Phone: [facility] 10-31-2022 14:05-0400 Body height 166.9 cm Maryam Hodgson APRN.YARD LOADER OPERATOR Work Phone: [facility] 10-31-2022 14:05-0400 Body temperature 97.5 [degF] Maryam Hodgson WATER RESOURCE ENGINEER.YARD LOADER OPERATOR Work Phone: [facility] 10-31-2022 14:05-0400 Body weight 78.2 kg Maryam Hodgson APRN.YARD LOADER OPERATOR Work Phone: [facility] 10-31-2022 14:05-0400 Diastolic blood pressure 58 mm[Hg] Maryam Hodgson APRN.YARD LOADER OPERATOR Work Phone: [facility] 10-31-2022 14:05-0400 Heart rate 67 /min Maryam Hodgson WATER RESOURCE ENGINEER.YARD LOADER OPERATOR Work Phone: [facility] 10-31-2022 14:05-0400 Respiratory rate 16 /min Maryam Hodgson WATER RESOURCE ENGINEER.YARD LOADER OPERATOR Work Phone: [facility] 10-31-2022 14:05-0400 SaO2% (BldA) [Mass fraction] 98 % Maryam Hodgson WATER RESOURCE ENGINEER.YARD LOADER OPERATOR Work Phone: [facility] 10-31-2022 14:05-0400 Systolic blood pressure 120 mm[Hg] Maryam Hodgson WATER RESOURCE ENGINEER.YARD LOADER OPERATOR Work Phone: [facility] 10-25-2022 09:51-0400 Body height 166.9 cm Maryam Hodgson APRN.YARD LOADER OPERATOR Work Phone: [facility] 10-25-2022 09:51-0400 Body temperature 97 [degF] Maryam Hodgson APRN.YARD LOADER OPERATOR Work Phone: [facility] 10-25-2022 09:51-0400 Body weight 79.29 kg Maryam Hodgson APRN.YARD LOADER OPERATOR Work Phone: [facility] 10-25-2022 09:51-0400 Diastolic blood pressure 64 mm[Hg] Maryam Hodgson APRN.YARD LOADER OPERATOR Work Phone: [facility] 10-25-2022 09:51-0400 Heart rate 63 /min Maryam Hodgson WATER RESOURCE ENGINEER.YARD LOADER OPERATOR Work Phone: [facility] 10-25-2022 09:51-0400 Respiratory rate 16 /min Maryam Hodgson APRN.YARD LOADER OPERATOR Work Phone: [facility] 10-25-2022 09:51-0400 SaO2% (BldA) [Mass fraction] 99 % Maryam Hodgson APRN.YARD LOADER OPERATOR Work Phone: [facility] 10-25-2022 09:51-0400 Systolic blood pressure 135 mm[Hg] Maryam Hodgson APRN.CNP Work Phone: [facility] 10-19-2022 09:21-0400 Body height 166.9 cm John England MD Work Phone: [facility] 10-19-2022 09:21-0400 Body temperature 97.11 [degF] John England MD Work Phone: [facility] 10-19-2022 09:21-0400 Body weight 78.74 kg John England MD Work Phone: [facility] 10-19-2022 09:21-0400 Diastolic blood pressure 64 mm[Hg] John England MD Work Phone: [facility] 10-19-2022 09:21-0400 Heart rate 56 /min John England MD Work Phone: [facility] 10-19-2022 09:21-0400 Respiratory rate 16 /min John England MD Work Phone: [facility] 10-19-2022 09:21-0400 SaO2% (BldA) [Mass fraction] 98 % John England MD Work Phone: [facility] 10-19-2022 09:21-0400 Systolic blood pressure 129 mm[Hg] John England MD Work Phone: [facility] 10-15-2022 10:40-0400 Body temperature 97.39 [degF] BARRON Feliz MD Work Phone: [facility] 10-15-2022 10:40-0400 Body weight 78.02 kg BARRON Feliz MD Work Phone: [facility] 10-15-2022 10:40-0400 Diastolic blood pressure 79 mm[Hg] BARRON Feliz MD Work Phone: [facility] 10-15-2022 10:40-0400 Heart rate 83 /min BARRON Feliz MD Work Phone: [facility] [facility] 10-15-2022 10:40-0400 Respiratory rate 16 /min BARRON Feliz MD Work Phone: [facility] 10-15-2022 10:40-0400 SaO2% (BldA) [Mass fraction] 100 % BARORN Feliz MD Work Phone: [facility] 10-15-2022 10:40-0400 Systolic blood pressure 126 mm[Hg] BARRON Feliz MD Work Phone: [facility] 10-08-2022 11:07-0400 Body temperature 98.2 [degF] Chair [place] Work Phone: [facility] 10-08-2022 11:07-0400 Diastolic blood pressure 76 mm[Hg] Chair [place] Work Phone: [facility] 10-08-2022 11:07-0400 Heart rate 70 /min Chair [place] Work Phone: [facility] 10-08-2022 11:07-0400 Respiratory rate 18 /min Chair [place] Work Phone: [facility] 10-08-2022 11:07-0400 SaO2% (BldA) [Mass fraction] 99 % Chair Jose Work Phone: [facility] 10-08-2022 11:07-0400 Systolic blood pressure 129 mm[Hg] Chair [place] Work Phone: [facility] 10-08-2022 10:48-0400 Body temperature 97.2 [degF] BARRON Feliz MD Work Phone: [facility] 10-08-2022 10:48-0400 Body weight 79.65 kg BARRON Feliz MD Work Phone: [facility] 10-08-2022 10:48-0400 Diastolic blood pressure 80 mm[Hg] BARRON Feliz MD Work Phone: [facility] 04-03-2023 10:48-0400 Heart rate 67 /min BARRON Feliz MD Work Phone: [facility] 10-08-2022 10:48-0400 Respiratory rate 16 /min BARRON Feliz MD Work Phone: [facility] 10-08-2022 10:48-0400 SaO2% (BldA) [Mass fraction] 99 % BARRON Feliz MD Work Phone: [facility] 10-08-2022 10:48-0400 Systolic blood pressure 145 mm[Hg] BARRON Feliz MD Work Phone: [facility] 10-01-2022 11:40-0400 Body height 166.9 cm Maryam Hodgson WATER RESOURCE ENGINEER.YARD LOADER OPERATOR Work Phone: [facility] 10-01-2022 11:40-0400 Body temperature 96.91 [degF] Maryam Hodgson WATER RESOURCE ENGINEER.YARD LOADER OPERATOR Work Phone: [facility] 10-01-2022 11:40-0400 Body weight 80.29 kg Maryam Hodgson WATER RESOURCE ENGINEER.YARD LOADER OPERATOR Work Phone: [facility] 10-01-2022 11:40-0400 Diastolic blood pressure 78 mm[Hg] Maryam Hodgson WATER RESOURCE ENGINEER.YARD LOADER OPERATOR Work Phone: [facility] 10-01-2022 11:40-0400 Heart rate 74 /min Maryam Hodgson WATER RESOURCE ENGINEER.YARD LOADER OPERATOR Work Phone: [facility] 10-01-2022 11:40-0400 Respiratory rate 16 /min Maryam Hodgson WATER RESOURCE ENGINEER.YARD LOADER OPERATOR Work Phone: [facility] 10-01-2022 11:40-0400 SaO2% (BldA) [Mass fraction] 99 % Maryam Hodgson APRN.YARD LOADER OPERATOR Work Phone: [facility] 10-01-2022 11:40-0400 Systolic blood pressure 129 mm[Hg] Maryam Hodgson WATER RESOURCE ENGINEER.YARD LOADER OPERATOR Work Phone: [facility] 10-01-2022 10:47-0400 Body temperature 96.91 [degF] BARRON Feliz MD Work Phone: [facility] 10-01-2022 10:47-0400 Body weight 80.65 kg BARRON Feliz MD Work Phone: [facility] 10-01-2022 10:47-0400 Diastolic blood pressure 78 mm[Hg] BARRON Feliz MD Work Phone: [facility] 10-01-2022 10:47-0400 Heart rate 74 /min BARRON Feliz MD Work Phone: [facility] 10-01-2022 10:47-0400 Respiratory rate 16 /min BARRON Feliz MD Work Phone: [facility] 10-01-2022 10:47-0400 SaO2% (BldA) [Mass fraction] 99 % BARRON Feliz MD Work Phone: [facility] 10-01-2022 10:47-0400 Systolic blood pressure 129 mm[Hg] BARRON Feliz MD Work Phone: [facility] 09-24-2022 10:40-0400 Body temperature 97.59 [degF] BARRON Feliz MD Work Phone: [facility] 09-24-2022 10:40-0400 Body weight 83.46 kg BARRON Feliz MD Work Phone: [facility] 09-24-2022 10:40-0400 Diastolic blood pressure 68 mm[Hg] BARRON Feliz MD Work Phone: [facility] 09-24-2022 10:40-0400 Heart rate 83 /min BARRON Feliz MD Work Phone: [facility] 09-24-2022 10:40-0400 Respiratory rate 18 /min BARRON Feliz MD Work Phone: [facility] 09-24-2022 10:40-0400 SaO2% (BldA) [Mass fraction] 98 % BARRON Feliz MD Work Phone: [facility] 09-24-2022 10:40-0400 Systolic blood pressure 133 mm[Hg] BARRON Feliz MD Work Phone: [facility] 09-17-2022 11:03-0400 Body temperature 97.7 [degF] BARRON Feliz MD Work Phone: [facility] 09-17-2022 11:03-0400 Body weight 84.82 kg BARRON Feliz MD Work Phone: [facility] 09-17-2022 11:03-0400 Diastolic blood pressure 73 mm[Hg] BARRON Feliz MD Work Phone: [facility] 09-17-2022 11:03-0400 Heart rate 75 /min BARRON Feliz MD Work Phone: [facility] 09-17-2022 11:03-0400 Respiratory rate 18 /min BARRON Feliz MD Work Phone: [facility] 09-17-2022 11:03-0400 SaO2% (BldA) [Mass fraction] 95 % BARRON Feliz MD Work Phone: [facility] 09-17-2022 11:03-0400 Systolic blood pressure 167 mm[Hg] BARRON Feliz MD Work Phone: [facility] 09-10-2022 11:17-0500 Body temperature 97.81 [degF] BARRON Feliz MD Work Phone: [facility] 09-10-2022 11:17-0500 Body weight 85.73 kg BARRON Feliz MD Work Phone: [facility] 09-10-2022 11:17-0500 Diastolic blood pressure 81 mm[Hg] BARRON Feliz MD Work Phone: [facility] 09-10-2022 11:17-0500 Heart rate 72 /min BARRON Feliz MD Work Phone: [facility] 09-10-2022 11:17-0500 Respiratory rate 18 /min BARRON Feliz MD Work Phone: [facility] 09-10-2022 11:17-0500 SaO2% (BldA) [Mass fraction] 97 % BARRON Feliz MD Work Phone: [facility] 09-10-2022 11:17-0500 Systolic blood pressure 150 mm[Hg] BARRON Feliz MD Work Phone: [facility] 09-03-2022 11:09-0500 Body height 166.9 cm John England MD Work Phone: [facility] 09-03-2022 11:09-0500 Body temperature 97 [degF] John England MD Work Phone: [facility] 09-03-2022 11:09-0500 Body weight 83.46 kg John England MD Work Phone: [facility] 09-03-2022 11:09-0500 Diastolic blood pressure 74 mm[Hg] John England MD Work Phone: [facility] 09-03-2022 11:09-0500 Heart rate 70 /min John England MD Work Phone: [facility] 09-03-2022 11:09-0500 Respiratory rate 16 /min John England MD Work Phone: [facility] 09-03-2022 11:09-0500 SaO2% (BldA) [Mass fraction] 97 % John England MD Work Phone: [facility] 09-03-2022 11:09-0500 Systolic blood pressure 149 mm[Hg] John England MD Work Phone: [facility] 09-03-2022 09:57-0500 Body temperature 97 [degF] BARRON Feliz MD Work Phone: [facility] 09-03-2022 09:57-0500 Body weight 81.19 kg BARRON Feliz MD Work Phone: [facility] 09-03-2022 09:57-0500 Diastolic blood pressure 74 mm[Hg] BARRON Feliz MD Work Phone: [facility] 09-03-2022 09:57-0500 Heart rate 70 /min BARRON Feliz MD Work Phone: [facility] 09-03-2022 09:57-0500 Respiratory rate 16 /min BARRON Feliz MD Work Phone: [facility] 09-03-2022 09:57-0500 SaO2% (BldA) [Mass fraction] 97 % BARRON Feliz MD Work Phone: [facility] 09-03-2022 09:57-0500 Systolic blood pressure 149 mm[Hg] BARRON Feliz MD Work Phone: [facility] 08-16-2022 15:39-0500 Body height 168.9 cm John England MD Work Phone: [facility] 08-16-2022 15:39-0500 Body temperature 97.7 [degF] John England MD Work Phone: [facility] 08-16-2022 15:39-0500 Body weight 84.73 kg John England MD Work Phone: [facility] 08-16-2022 15:39-0500 Diastolic blood pressure 73 mm[Hg] John England MD Work Phone: [facility] 08-16-2022 15:39-0500 Heart rate 64 /min John England MD Work Phone: [facility] 08-16-2022 15:39-0500 Respiratory rate 16 /min John England MD Work Phone: [facility] 08-16-2022 15:39-0500 SaO2% (BldA) [Mass fraction] 97 % John England MD Work Phone: [facility] 08-16-2022 15:39-0500 Systolic blood pressure 156 mm[Hg] John England MD Work Phone: [facility] 08-14-2022 10:01-0500 Body height 168.9 cm BARRON Feliz MD Work Phone: [facility] 08-14-2022 10:01-0500 Body temperature 97.7 [degF] BARRON Feliz MD Work Phone: [facility] 08-14-2022 10:01-0500 Body weight 84.82 kg BARRON Feliz MD Work Phone: [facility] 08-14-2022 10:01-0500 Diastolic blood pressure 90 mm[Hg] BARRON Feliz MD Work Phone: [facility] 08-14-2022 10:01-0500 Heart rate 58 /min BARRON Feliz MD Work Phone: [facility] 08-14-2022 10:01-0500 Respiratory rate 16 /min BARRON Feliz MD Work Phone: [facility] 08-14-2022 10:01-0500 SaO2% (BldA) [Mass fraction] 99 % BARRON Feliz MD Work Phone: [facility] 08-14-2022 10:01-0500 Systolic blood pressure 167 mm[Hg] BARRON Feliz MD Work Phone: [facility] 06-13-2022 14:55-0500 Blood Pressure Location Renea PARTIDA [facility] 06-13-2022 14:55-0500 Diastolic blood pressure 60 mm[Hg] Renea PARTIDA [facility] 06-13-2022 14:55-0500 Heart rate 60 /min Renea PARTIDA [facility] 06-13-2022 14:55-0500 Respiratory rate 16 /min Renea PARTIDA [facility] 06-13-2022 14:55-0500 Systolic blood pressure 120 mm[Hg] Renea PARTIDA General Surgery [place] Encounters Encounter Date Encounter Type Care Provider Facility Start: 04-07-2024 End: 04-07-2024 ambulatory [facility] Work Phone: Start: 04-07-2024 End: 04-07-2024 Patient encounter procedure [facility] Physician [facility] Work Phone: Start: 03-24-2024 End: 03-24-2024 ambulatory SERENE H TIMMIS Not Available Start: 02-25-2024 End: 02-25-2024 ambulatory SERENE H TIMMIS Not Available Start: 01-21-2024 End: 01-21-2024 ambulatory SERENE H TIMMIS Not Available Start: 01-14-2024 End: 01-14-2024 ambulatory [facility] Work Phone: Start: 01-14-2024 End: 01-14-2024 Patient encounter procedure [facility] [place] Work Phone: Start: 12-16-2023 End: 12-16-2023 ambulatory BOJORQUEZ FAWWAD Not Available Start: 12-04-2023 End: 12-04-2023 ambulatory SERENE H TIMMIS Not Available Start: 11-20-2023 End: 11-20-2023 ambulatory BOJORQUEZ FAWWAD Not Available Start: 11-06-2023 End: 11-06-2023 ambulatory BOJORQUEZ FAWWAD Facility:[facility] Start: 11-06-2023 End: 11-06-2023 Patient encounter procedure Yordan Feliz MD Work Phone: Radiation Oncology Comment on above: Head and neck cancer (HCC) (Primary Dx) Start: 10-23-2023 End: 10-23-2023 ambulatory BOJORQUEZ FAWWAD Facility:[facility] Start: 10-23-2023 End: 10-23-2023 Office outpatient [...] (R esults) Start: 10-16-2023 End: 10-16-2023 [facility] Start: 10-16-2023 End: 10-16-2023 Subsequent hospital visit by physician Arrival Time Radiology Work Phone: Radiology [facility] Comment on above: Lung nodules [R91.8] Start: 10-02-2023 End: 10-02-2023 ambulatory SERENE H TIMMIS Not Available Start: 09-04-2023 End: 09-04-2023 ambulatory SERENE H TIMMIS Not Available Start: 07-31-2023 End: 07-31-2023 ambulatory SERENE H TIMMIS Not Available Start: 06-24-2023 End: 06-24-2023 ambulatory SERENE H TIMMIS Not Available Start: 06-19-2023 End: 06-19-2023 ambulatory BOJORQUEZ FAWSDD Facility:[facility] Start: 06-12-2023 End: 06-12-2023 [facility] Start: 06-12-2023 End: 06-12-2023 Subsequent hospital visit by physician Arrival Time Radiology Work Phone: Radiology [facility] Comment on above: 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] Start: 06-11-2023 End: 06-11-2023 ambulatory BOJORQUEZ FAWWAD Facility:[facility] Start: 06-10-2023 End: 06-10-2023 ambulatory BOJORQUEZ FAWWAD Not Available Start: 05-27-2023 End: 05-27-2023 ambulatory SERENE H TIMMIS Not Available Start: 05-08-2023 End: 05-08-2023 ambulatory BOJORQUEZ FAWSDD Facility:[facility] Start: 05-08-2023 End: 05-08-2023 Patient encounter procedure Yordan Feliz MD Work Phone: Radiation Oncology Comment on above: Other specified diso rders of thyroid (Primary Dx) Start: 03-20-2023 End: 03-20-2023 ambulatory SHAIKH VIDAL Facility:[facility] Start: 03-20-2023 End: 03-20-2023 Office outpatient visit 25 minutes John England MD Work Phone: Hematology/Oncology Comment on above: 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); Mass of right lung Start: 03-14-2023 End: 03-14-2023 [facility] Start: 03-14-2023 End: 03-14-2023 Subsequent hospital visit by physician Arrival Time Radiology Work Phone: Radiology [facility] CT Comment on above: Lung nodules [R91.8] Start: 02-06-2023 End: 02-06-2023 Orders Only Shaikh Vidal WELCH Work Phone: Hematology/Oncology Comment on above: Hyperlipidemia, unsp ecified hyperlipidemia type (Primary Dx); Type 2 diabetes mellitus without complication, unspecified whether cafe team member insulin use (HCC); Unspecified essential hypertension Lung nodule seen on imaging study (Primary Dx); Disorder of carbohydrate metabolism (HCC) Start: 02-06-2023 End: 02-06-2023 Office outpatient visit 25 minutes John England MD Work Phone: Hematology/Oncology Comment on above: 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); Mass of right lung; Lung nodules Start: 01-29-2023 End: 01-29-2023 ambulatory Yordan FELIZ Facility:[facility] Start: 01-29-2023 End: 01-29-2023 Subsequent hospital visit by physician Arrival Time Radiology Work Phone: Radiology Pet CT Comment on above: 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] Start: 11-28-2022 End: 11-28-2022 ambulatory Yordan FELIZ Facility:[facility] Start: 11-28-2022 End: 11-28-2022 Patient encounter procedure Yordan Feliz MD Work Phone: Radiation Oncology Comment on above: 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) Start: 11-07-2022 End: 11-07-2022 ambulatory MARYAM HODGSON Facility:[facility] Start: 11-07-2022 End: 11-07-2022 Office outpatient [...] End: 10-31-2022 Patient encounter procedure Maryam Hodgson APRN.YARD LOADER OPERATOR Work Phone: JOSE Comment on above: Head and neck cancer (HCC) (Primary Dx) Start: 10-25-2022 End: 10-25-2022 ambulatory Maryam Hodgson WATER RESOURCE ENGINEER.YARD LOADER OPERATOR Work Phone: Hematology/Oncology Comment on above: 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); Chemotherapy-induced neutropenia (HCC) Start: 10-25-2022 End: 10-25-2022 Patient encounter procedure Maryam Hodgson WATER RESOURCE ENGINEER.YARD LOADER OPERATOR Work Phone: [facility]SE Start: 10-22-2022 Patient encounter [...] 10-19-2022 Office outpatient visit 25 minutes John Engladn MD Work Phone: Hematology/Oncology Comment on above: [...] Dx) Start: 09-10-2022 End: 09-10-2022 ambulatory Chair Elodia Dayy Work Phone: Hematology/Oncology Comment on above: 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) Start: 09-10-2022 End: 09-10-2022 Patient encounter procedure Yordan Feliz MD Work Phone: Radiation Oncology Comment on above: Tongue cancer (HCC) (Primary Dx) Start: 09-07-2022 Telephone encounter Marysol DENG H ematology/Oncology Comment on above: Social Work Services [...] above: Care Coordination (P t Questions) Start: 08-27-2022 End: 08-27-2022 Subsequent hospital visit by physician Arrival Time Radiology Work Phone: Radiology [facility] CT Comment on above: 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] Start: 08-24-2022 Patient encounter procedure [facility] Provider [facility] Start: 08-23-2022 End: 08-23-2022 Subsequent hospital visit by physician Yordan Feliz MD Work Phone: Radiology [facility] Start: 08-23-2022 End: 08-23-2022 Patient encounter procedure Yordan Feliz MD Work Phone: Radiation Oncology Comment on above: Tongue cancer (HCC) (Primary Dx) Start: 08-23-2022 Radiation Oncology Note Yordan Feliz MD Work [...] Start: 08-17-2022 Patient encounter procedure [facility] Provider [facility] Start: 08-16-2022 End: 08-16-2022 Office outpatient new 60 minutes John England MD Work Phone: Hematology/Oncology Comment on above: 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) Start: 08-15-2022 Patient encounter procedure [facility] Provider [facility] Start: 08-15-2022 Telephone encounter Yordan Feliz MD Work Phone: Radiation Oncology [...] for preprocedural laboratory examination DR SERENE MORALES [facility] Start: 07-31-2022 End: 07-31-2022 Patient encounter procedure Renea PARTIDA General Surgery [place]erva/V[facility]u [place] Start: 07-31-2022 End: 07-31-2022 ambulatory Renea PARTIDA Facility:[facility] Start: 07-27-2022 End: 07-28-[address] SERENE MORALES Facility:[facility] Start: 07-27-2022 End: 07-28-2022 Encounter for preprocedural laboratory examination DR SERENE MORALES Facility:[facility] Start: 07-18-2022 End: 07-19-2022 ambulatory Renea PARTIDA Facility:CD:[id number] Start: 07-11-2022 End: 07-12-[address] RENEA PARTIDA Facility:[facility] Start: 06-13-2022 End: 06-14-2022 ambulatory Renea PARTIDA Facility: [facility] Start: 06-13-2022 End: 06-13-2022 Patient encounter procedure Renea PARTIDA General Surgery Nill/Vasu [place] Start: 06-09-2022 End: 06-10-[address] MANNIE NELSON Facility:[facility] Start: 06-06-2022 ambulatory Renea PARTIDA [facility]: [facility] Start: 02-27-2022 End: 02-28-[address] MANNIE NELSON Facility: Procedures Date Procedure Procedure Detail Performing Clinician Start: 10-16-2023 Ct soft tissue neck w/contrast material John England MD Work Phone: Start: 10-16-2023 Ct thorax w/contrast material John England MD Work Phone: Start: 10-16-2023 Blood count complete auto&auto difrntl wbc John England MD Work Phone: Start: 06-12-2023 Ct thorax w/contrast material John England MD Work Phone: Start: 03-14-2023 Ct thorax w/contrast material John England MD Work Phone: Start: 01-29-[address] atten uation skull base mid-thigh G Jeyson Feliz MD Work Phone: Start: 01-29-2023 Gluc bld gluc mntr d ev cleared fda spec home use [facility] Provider Start: 10-08-2022 CBC + DIFF John andrews MD Work Phone: Start: 10-08-2022 Comprehensive metabo lic panel John England MD Work Phone: Start: 10-01-2022 Blood count complete auto&auto difrntl wbc John England MD Work Phone: Start: 09-17-2022 Blood count complete auto&auto difrntl wbc John England MD Work Phone: Start: 08-27-[address] atten uation skull base mid-thigh G Jeyson Feliz MD Work Phone: Start: 08-27-2022 Gluc bld gluc mntr d ev cleared fda spec home use [facility] Provider Start: 02-27-[address] MANNIE HO Comment on above: Performed By: #### P SAD #### [facility] [address] [place] [address] Dr. Mikayla Galan Start: 07-08-2016 Colonoscopy Renea NI LL Start: 07-08-2011 Colonoscopy Renea NI LL Start: 09-05-2006 Colonoscopy Renea NI LL Start: 05-08-2003 Colonoscopy Renea NI LL Start: 07-08-2001 Cardiac catheterization Renea NILL Start: 07-08-2001 Placement of stent i n cardiac conduit Renea NILL Start: 05-08-2001 Colonoscopy Renea NI LL Start: 07-08-1999 Colonoscopy Renea NI LL Start: 07-08-1999 Sigmoid colectomy Beau demi PARTIDA Comment on above: with colocolostomy Bilateral extraction of cataracts Renea PARTIDA Plan of Treatment Date Care Activity Detail Author Start: 10-15-2026 Diabetes Screening Diabetes Screenin g [facility] Start: 02-06-2026 DIABETES SCREEN [facility] Start: 02-06-2026 Diabetes Screening Diabetes Screenin g [facility] Start: 11-07-2025 DIABETES SCREEN [facility] Start: 10-31-2025 DIABETES SCREEN [facility]ET[facility]CREEN [facility] Start: 10-25-2025 DIABETES SCREEN [facility]CREEN [facility] Start: 10-19-2025 DIABETES SCREEN DIABETES SCREEN [facility] Start: 10-08-2025 DIABETES SCREEN DIABETES SCREEN [facility] Start: 10-01-2025 DIABETES SCREEN DIABETES SCREEN [facility] Start: 09-24-2025 DIABETES SCREEN DIABETES SCREEN [facility] Start: 09-17-2025 DIABETES SCREEN DIABETES SCREEN [facility] Start: 09-10-2025 DIABETES SCREEN DIABETES SCREEN [facility] Start: 09-03-2025 DIABETES SCREEN DIABETES SCREEN [facility] Start: 08-23-2025 DIABETES SCREEN DIABETES SCREEN [facility] Start: 10-15-2024 Complete blood count Hemoglobin/Sebastien tocrit [facility] Start: 10-15-2024 Creatinine measurement Serum Creatin ine [facility] Start: 04-29-2024 End: 04-29-2024 Patient encounter procedure 04/29/2024 10:30 AM EDT Office Visit Radiation Oncology [address] [place] [address] Yordan Feliz MD [address] [place] [address] Followup Radiation Oncology Comment on above: Followup Start: 04-29-2024 End: 04-29-2024 Follow-up encounter 04/29/2024 10:00 AM EDT Visit (SP) Office Hematology/Oncology [address] [place] [address] John England MD [address] [place] [address] 6 month follow up after scans Hematology/Oncology Comment on above: [address] scans Start: 04-23-2024 End: 10-22-2024 CBC W Auto Differential panel - Blood COMPLETE BLOOD COUNT AND DIFFERENTIAL Lab Routine 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 Expected: 04/23/2024 (Approximate), Expires: 10/22/2024 [facility] Work Phone: Comment on above: Expected: 04/23/2024 (Approximate), Expires: 10/22/2024 Start: 04-23-2024 End: 10-22-2024 Cobalamin (Vitamin B12) [Mass/volume] in Serum or Plasma VITAMIN B12 Lab Routine 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 Expected: 04/23/2024 (Approximate), Expires: 10/22/2024 [facility] Work Phone: Comment on above: Expected: 04/23/2024 (Approximate), Expires: 10/22/2024 Start: 04-23-2024 End: 10-22-2024 Comprehensive metabolic 2000 panel - Serum or Plasma COMPREHENSIVE METABOLIC PANEL Lab Routine 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 Expected: 04/23/2024 (Approximate), Expires: 10/22/2024 [facility] Work Phone: Comment on above: Expected: 04/23/2024 (Approximate), Expires: 10/22/2024 Start: 04-23-2024 End: 11-21-2024 CT Chest W contrast IV CT CHEST W IVCON Radiology Routine 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 Expected: 04/23/2024 (Approximate), Expires: 11/21/2024 [facility] Work Phone: Comment on above: Expected: 04/23/2024 (Approximate), Expires: 11/21/2024 Start: 04-23-2024 End: 11-21-2024 CT Neck W contrast IV CT NECK SOFT TISSUE W IVCON Radiology Routine 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 Expected: 04/23/2024 (Approximate), Expires: 11/21/2024 [facility] Work Phone: Comment on above: Expected: 04/23/2024 (Approximate), Expires: 11/21/2024 Start: 04-23-2024 End: 10-22-2024 Ferritin [Mass/volume] in Serum or Plasma FERRITIN Lab Routine 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 Expected: 04/23/2024 (Approximate), Expires: 10/22/2024 [facility] Work Phone: Comment on above: Expected: 04/23/2024 (Approximate), Expires: 10/22/2024 Start: 04-23-2024 End: 10-22-2024 Folate [Mass/volume] in Serum or Plasma FOLATE, SERUM Lab Routine 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 Expected: 04/23/2024 (Approximate), Expires: 10/22/2024 [facility] Work Phone: Comment on above: Expected: 04/23/2024 (Approximate), Expires: 10/22/2024 Start: 04-23-2024 End: 10-22-2024 Iron and Iron binding capacity panel - Serum or Plasma IRON AND TIBC Lab Routine 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 Expected: 04/23/2024 (Approximate), Expires: 10/22/2024 [facility] Work Phone: Comment on above: Expected: 04/23/2024 (Approximate), Expires: 10/22/2024 Start: 04-23-2024 End: 04-23-2024 Patient encounter procedure 04/23/2024 8:15 AM EDT Appointment Radiology Pet CT [address] [place] [address] [place] [address] CT CHEST AND NECK Radiology Pet CT Comment on above: CT CHEST AND NECK Start: 03-08-2024 Covid-19 Vaccine () Covid-19 Vaccine () [facility] Start: 03-08-2024 Covid-19 Vaccine () Covid-19 Vaccine () [facility] Start: 03-08-2024 Influenza vaccination [facility] Start: 02-07-2024 SERUM CREATININE SERUM CREATININE [facility] Start: 11-08-2023 SERUM CREATININE SERUM CREATININE [facility] Start: 11-06-2023 End: 02-05-2024 Thyrotropin [Units/volume] in Serum or Plasma TSH BLD Lab Routine Other specified disorders of thyroid Expected: 11/06/2023 (Approximate), Expires: 02/05/2024 [facility] Work Phone: Comment on above: Expected: 11/06/2023 (Approximate), Expires: 02/05/2024 Start: 11-06-2023 End: 02-05-2024 Thyroxine (T4) free [Mass/volume] in Serum or Plasma T4 FREE/FREE THYROX Lab Routine Other specified disorders of thyroid Expected: 11/06/2023 (Approximate), Expires: 02/05/2024 [facility] Work Phone: Comment on above: Expected: 11/06/2023 (Approximate), Expires: 02/05/2024 Start: 11-06-2023 End: 02-05-2024 Triiodothyronine (T3) [Mass/volume] in Serum or Plasma T3 BLD Lab Routine Other specified disorders of thyroid Expected: 11/06/2023 (Approximate), Expires: 02/05/2024 [facility] Work Phone: Comment on above: Expected: 11/06/2023 (Approximate), Expires: 02/05/2024 Start: 2023 HEMOGLOBIN/HEMATOCRIT HEMOGLOBIN/HEM ATOCRIT [facility] Start: 2023 SERUM CREATININE SERUM CREATININE [facility] Start: 07-08-2023 Advance Directive Discussion Advance Directive Discussion [facility] Start: 07-08-2023 Behavioral Health Screening Behavioral Health Screening [facility] Start: 06-19-2023 End: 03-20-2024 CBC W Auto Differential panel - Blood CBC + DIFF Lab Routine 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) Mass of right lung Expected: 06/19/2023 (Approximate), Expires: 03/20/2024 [facility] Work Phone: Comment on above: Expected: 06/19/2023 (Approximate), Expires: 03/20/2024 Start: 06-19-2023 End: 03-20-2024 Comprehensive metabolic 2000 panel - Serum or Plasma COMP METABOLIC PANEL Lab Routine 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) Mass of right lung Expected: 06/19/2023 (Approximate), Expires: 03/20/2024 [facility] Work Phone: Comment on above: Expected: 06/19/2023 (Approximate), Expires: 03/20/2024 Start: 06-19-2023 End: 04-18-2024 CT CHEST W IVCON CT CHEST W IVCON Radiology Routine 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) Mass of right lung Expected: 06/19/2023 (Approximate), Expires: 04/18/2024 [facility] Work Phone: Comment on above: Expected: 06/19/2023 (Approximate), Expires: 04/18/2024 Start: 03-13-2023 End: 03-07-2024 CT CHEST W IVCON CT CHEST W IVCON Radiology Routine Lung nodules Expected: 03/13/2023 (Approximate), Expires: 03/07/2024 [facility] Work Phone: Comment on above: Expected: 03/13/2023 (Approximate), Expires: 03/07/2024 Start: 03-08-2023 Covid-19 Vaccine ( season) Covid-19 Vaccine ( season) [facility] Start: 03-08-2023 Influenza vaccination C [facility] Start: 02-06-2023 End: 04-08-2023 ALBUMIN/CREAT RATIO RND UR [facility] Work Phone: Comment on above: Expected: 02/06/2023 , Expires: 04/08/2023 Start: 02-06-2023 End: 04-08-2023 Creatinine [Mass/volume] in Urine collected for unspecified duration [facility] Work Phone: Comment on above: Expected: 02/06/2023 , Expires: 04/08/2023 Start: 02-06-2023 End: 04-08-2023 Hemoglobin A1c in Blood [facility] Work Phone: Comment on above: Expected: 02/06/2023 , Expires: 04/08/2023 Start: 02-06-2023 End: 04-08-2023 Lipid 1996 panel - Serum or Plasma [facility] Work Phone: Comment on above: Expected: 02/06/2023 , Expires: 04/08/2023 Start: 01-30-2023 End: 11-08-2023 CBC W Auto Differential panel - Blood CBC + DIFF Lab Routine 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) Chemotherapy-induced neutropenia (HCC) Expected: 01/30/2023 (Approximate), Expires: 11/08/2023 [facility] Work Phone: Comment on above: Expected: 01/30/2023 (Approximate), Expires: 11/08/2023 Start: 01-30-2023 End: 11-08-2023 Comprehensive metabolic 2000 panel - Serum or Plasma COMP METABOLIC PANEL Lab Routine 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) Chemotherapy-induced neutropenia (HCC) Expected: 01/30/2023 (Approximate), Expires: 11/08/2023 [facility] Work Phone: Comment on above: Expected: 01/30/2023 (Approximate), Expires: 11/08/2023 Start: 01-28-2023 End: 12-28-2023 NM PET/CT SKULL-THIGH SUBSEQUENT NM PET/CT SKULL-THIGH SUBSEQUENT Radiology Routine 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) Expected: 01/28/2023, Expires: 12/28/2023 [facility] Work Phone: Comment on above: Expected: 01/28/2023 , Expires: 12/28/2023 Start: 11-08-2022 End: 01-08-2023 CBC W Auto Differential panel - Blood CBC + DIFF Lab Routine 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) Expected: 11/08/2022, Expires: 01/08/2023 [facility] Work Phone: Comment on above: Expected: 11/08/2022 , Expires: 01/08/2023 Start: 11-08-2022 End: 01-08-2023 Comprehensive metabolic 2000 panel - Serum or Plasma COMP METABOLIC PANEL Lab Routine 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) Expected: 11/08/2022, Expires: 01/08/2023 [facility] Work Phone: Comment on above: Expected: 11/08/2022 , Expires: 01/08/2023 Start: 10-26-2022 End: 12-26-2022 CBC W Auto Differential panel - Blood CBC + DIFF Lab Routine 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) Chemotherapy-induced neutropenia (HCC) Expected: 10/26/2022, Expires: 12/26/2022 [facility] Work Phone: Comment on above: Expected: 10/26/2022 , Expires: 12/26/2022 Start: 10-26-2022 End: 12-26-2022 Comprehensive metabolic 2000 panel - Serum or Plasma COMP METABOLIC PANEL Lab Routine 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) Chemotherapy-induced neutropenia (HCC) Expected: 10/26/2022, Expires: 12/26/2022 [facility] Work Phone: Comment on above: Expected: 10/26/2022 , Expires: 12/26/2022 Start: 07-08-2022 ADVANCE DIRECTIVE DISCUSSION ADVANCE DIRECTIVE DISCUSSION [facility] Start: 07-08-2022 DEPRESSION ASSESSMENT DEPRESSION ASS ESSMENT [facility] Start: 2020 COVID-19 VACCINE (3 - Booster for Moderna series) COVID-19 VACCINE (3 - Booster for Moderna series) [facility] Start: 10-04-2020 COVID-19 VACCINE (3 - Moderna risk series) COVID-19 VACCINE (3 - Moderna risk series) [facility] Start: 10-31-2018 RSV Vaccine (1 - 1-d ose 75+ series) RSV Vaccine (1 - 1-dose 75+ series) [facility] Start: 10-31-2008 Pneumococcal Vaccine : 65+ (1 of 1 - PCV) Pneumococcal Vaccine: 65+ (1 of 1 - PCV) [facility] Start: 10-31-2008 PNEUMOCOCCAL: 65+ (1 - PCV) PNEUMOCOCCAL: 65+ (1 - PCV) [facility] Start: 2003 RSV Vaccine (1 - 1-d ose 60+ series) RSV Vaccine (1 - 1-dose 60+ series) [facility] Start: 10-31-1993 SHINGRIX VACCINE (1 of 2) SANCHEZ GRIX VACCINE (1 of 2) [facility] Start: 10-31-1988 DIABETES SCREEN DIABETES SCREEN [facility] Start: 10-31-1962 SHINGRIX VACCINE (1 of 2) SANCHEZ GRIX VACCINE (1 of 2) [facility] Start: 10-31-1962 Urine microalbumin profile [facility] Start: 10-31-1961 ANNUAL PCP TEAM EDITORIAL ASSISTANT BELLE DISEASE VISIT ANNUAL PCP TEAM CHRONIC DISEASE VISIT [facility] Start: 10-31-1961 Anxiety Screening Anxiety Screening [facility] Start: 10-31-1961 Depression Screening Depression Scre ening [facility] Start: 10-31-1961 HEPATITIS C SCREENING HEPATITIS C OK MELISSA [facility] Start: 10-31-1949 Pneumococcal Vaccine : 65+ (1 - PCV) Pneumococcal Vaccine: 65+ (1 - PCV) [facility] Start: 10-31-1949 Pneumococcal Vaccine : 65+ (1 of 2 - PCV) Pneumococcal Vaccine: 65+ (1 of 2 - PCV) [facility] Start: 10-31-1949 PNEUMOCOCCAL: 65+ (1 - PCV) PNEUMOCOCCAL: 65+ (1 - PCV) [facility] End: 08-16-2023 CBC W Auto Differential panel - Blood CBC + DIFF Lab Routine Cancer of base of tongue (HCC) Once per week for 10 Occurrences starting 08/16/2022 until 08/16/2023, 1 completed [facility] Work Phone: Comment on above: Once per week for 10 Occurrences starting 08/16/2022 until 08/16/2023, 1 completed CBC W Auto Different ial panel - Blood CBC + DIFF Lab Routine Cancer of base of tongue (HCC) 10/08/2022 11:35 AM EDT [facility] Work Phone: End: 08-16-2023 Comprehensive metabolic 2000 panel - Serum or Plasma COMP METABOLIC PANEL Lab Routine Cancer of base of tongue (HCC) Once per week for 10 Occurrences starting 08/16/2022 until 08/16/2023, 1 completed [facility] Work Phone: Comment on above: Once per week for 10 Occurrences starting 08/16/2022 until 08/16/2023, [address] SIM PLANNING RADI ATION ONCOLOGY CT SIM PLANNING RADIATION ONCOLOGY Radiology Routine Tongue cancer (HCC) Ordered: 08/23/2022 [facility] Work Phone: Comment on above: Ordered: 08/23/2022 End: 09-13-[address] attenuation skull base mid-thigh NM PET/CT SKULL-THIGH INITIAL Radiology Routine Tongue cancer (HCC) Head and neck cancer (HCC) 1 Occurrences starting 08/14/2022 until 09/13/2023 [facility] Work Phone: Comment on above: 1 Occurrences starti 08/14/2022 until 09/13/2023 [facility] Immunizations Immunization Date Immunization Notes Care Provider [facility] 05-03-2022 influenza nasal, unspecified formulation [facility] Provider [facility] 05-03-2022 influenza virus vaccine, unspecified formulation Renea PARTIDA [facility] 09-06-2020 SARS-CoV-2 (COVID-19 ) mRNA-1273 vaccine Renea PARTIDA [facility] 08-09-2020 SARS-CoV-2 (COVID-19 ) mRNA-1273 vaccine Renea PARTIDA [facility] Payers Date Payer Category Payer Unknown HOSPITAL/MEDICAL GENERIC MEDICAL GENERIC [id number] 2022-Present [phone] [place] [address] [address] [place] [address] Indemnity [id number] 2020 Private Health Insurance [id number] 2020 Private Health Insurance [id number] 2013 Medicare [id number] 1959 Medicare [id number] 1959 Private Health Insurance [id number] 1943 Unknown [id number] 2.16.840.1.485077.3.579.2. 727 1943 Unknown [id number] 2.16.840.1.392059.3.579.2. 727 1943 Unknown [id number] 2.16.840.1.558334.3.579.2. 727 1943 Unknown [id number] 2.16.840.1.403012.3.579.2. 593 1943 Unknown [id number] 2.16.840.1.632028.3.579.2. 593 1943 Unknown [id number] 2.16.840.1.474409.3.579.2. 593 1943 Unknown [id number] 2.16.840.1.895960.3.579.2. 593 1943 Unknown [id number] 2.16.840.1.491797.3.579.2. 593 1943 Unknown [id number] 2.16.840.1.107352.3.579.2. 593 1943 Unknown [id number] 2.16.840.1.084393.3.579.2. 1259 1943 Unknown [id number] 2.16.840.1.341343.3.579.2. 1258 1943 Unknown [id number] 2.16.840.1.657386.3.579.2. 1258 1943 Unknown [id number] 2.16.840.1.316906.3.579.2. 1258 1943 Unknown [id number] 2.16.840.1.428113.3.579.2. 1258 1943 Unknown [id number] 2.16.840.1.574273.3.579.2. 1258 1943 Unknown [id number] 2.16.840.1.245402.3.579.2. 1258 1943 Unknown [id number] 2.16.840.1.193211.3.579.2. 1258 1943 Unknown [id number] 2.16.840.1.314123.3.579.2. 1258 1943 Unknown [id number] 2.16.840.1.243746.3.579.2. 1258 1943 Unknown [id number] 2.16.840.1.623421.3.579.2. 1258 1943 Unknown [id number] 2.16.840.1.270566.3.579.2. 1258 1943 Unknown [id number] 2.16.840.1.007740.3.579.2. 1259 Social History Date Type Detail Facility Start: 04-30-2013 End: 06-13-2022 Tobacco smoking status Never smoked tobacco (finding) [facility] Tobacco smoking status Never [facility] Start: 08-14-2022 End: 02-06-2023 Sex Assigned [address] Male [facility] Start: 04-30-2013 End: 09-03-2022 Tobacco use and exposure Smokeless tobacco non-user [facility] Start: 08-14-2022 End: 02-14-2023 Alcohol intake Current drinker of alcohol (finding) [facility] Start: 08-14-2022 Alcohol Comment daily 3 beers [facility] Start: 1945 Sex Assigned At Not on file [facility] Start: 08-14-2022 End: 02-06-2023 History of Social function [facility] Start: 1945 Sex Assigned At Male [facility] NEGATED: Highlighted rowStart: NINF History of tobacco use Passive smoker [facility] Functional Status Date Assessment Result Facility 06-13-2022 Functional Status N/A [facility] Clinical Notes 04-28-2015 to 11-06-2023 Yordan Feliz MD - 11/06/2023 10:00 AM EDTPatient InstructionsAbJohn au MD - 10/23/2023 10:45 AM EDTTelephone Encounter - Rafael Meng RN - 10/16/2023 1:14 PM EDT Note Date & Type Note Facility 11-06-2023 Note HNO ID: [id number] Author: Yordan FELIZ MD Service: ? Author [...] Lymph 1.00 - 4.00 k/uL 0.48 (L) [place]% % 10.4 Abs [place] <0.87 k/uL 0.32 Eosin% % 1.6 Abs [...] Oropharynx: Lips, mu (more content not included)... [facility] 11-06-2023 History of Presen t illness [...] Lymph 1.00 - 4.00 k/uL 0.48 (L) [place]% % 10.4 Abs [place] <0.87 k/uL 0.32 Eosin% % 1.6 Abs [...] Feliz MD cc: Dr. Shaikh Vidal Estrada [address] [place] [address] documented in this encounter [facility] 10-23-2023 Note HNO ID: [id number] Author: JOHN ENGLAND MD Service: ? Author Type: Physician Type: Progress Notes Filed: 10/23/2023 22:31 Note Text: NAME: Manish Root [facility] NO.: [id number] DATE OF SERVICE: October 23, 2023 (Jacquelyn) [...] Ca Stage 3 - 2/5 LN + [place] regimen on protocol Updated Visit, October 23, [...] night sweats and (more content not included)... [facility] 10-23-2023 Instructions Kelli Merchant - 10/23/2023 11:[address] Neck and Chest in 6 months Labs same day, include anemia workup RTC 1 week after to review documented in this encounter [facility] 10-23-2023 History of Presen t illness Narrative Images from the original note were not included. NAME: Manish Root [facility] NO.: [id number] DATE OF SERVICE: October 23, 2023 (angely) Some elements in this clinic note that [...] Ca Stage 3 - 2/5 LN + [place] regimen on protocol Updated Visit, October 23, [...] which included preparing to see the patient, [id number] patient care, completing clinical documentation, performing a medically appropriate examination, counseling and educating the patient/family/caregiver, ordering medications, tests, or procedures, independently interpreting results (not separately reported), communicating results to the patient/family/caregiver, and care coordination (not separately reported). John England MD, CPE Hematology and Oncology Services Provided at: [place], [place] Scribe Attestation: This note was scribed [...] Dr. Yordan Morales documented in this encounter [facility] 10-16-2023 Miscellaneous Notes Pt had labs drawn today. Requests that the results be faxed to his PCP, Dr Drake. Results of CBC and CMP faxed to [phone]. Rafael Meng RN documented in this encounter [facility] 10-16-2023 Note HNO ID: [id number] Author: RAFAEL ZURITA RT(Ebonie) Service: ? Author Type: Technologist Type: Progress [...] PATIENT PRESENTS WITH AN IMPLANTABLE OR ATTACHED FIELD ORGANIZER: No RADIOLOGY DEPARTMENT: CT; Exam(s) Completed: Chest and Neck PERIPHERAL IV DATA: Site assessment: Clean,Dry and Intact, Site disposition Discontinued SIGNED BY: RT Perlita(R) October 16, 2023 11:34 AM [facility] 10-16-2023 History of Presen t illness Narrative Radiology Service Progress Note PATIENT NAME: Manish [...] PATIENT PRESENTS WITH AN IMPLANTABLE OR ATTACHED FIELD ORGANIZER: No RADIOLOGY DEPARTMENT: CT; Exam(s) Completed: Chest and Neck PERIPHERAL IV DATA: Site assessment: Clean,Dry and Intact, Site disposition Discontinued SIGNED BY: RT Perlita(R) October 16, 2023 11:34 AM documented in this encounter [facility] 06-19-2023 Note HNO ID: [id number] Author: John England MD Service: ? Author Type: Physician Type: Progress Notes Filed: 06/20/2023 8:01 AM Note Text: NAME: kD Manish [facility] NO.: [id number] DATE OF SERVICE: June 19, 2023 (Jacquelyn) [...] Ca Stage 3 - 2/5 LN + [place] regimen on protocol Updated Visit, June 19, [...] with radiation and (more content not included)... [facility] 06-12-2023 Note HNO ID: [id number] Author: Rafael Zurita, RT(R) Service: ? Author [...] RT Perlita(R) June 12, 2023 8:18 AM [facility] 06-12-2023 Note HNO ID: [id number] Author: Gisela Ruiz RN Service: ? Author [...] DATE: June 12, 2023 TIME: 8:07 AM [facility] 06-12-2023 History of Presen t illness Narrative Radiology Service Progress Note DATE OF SERVICE: [...] Ref Range Status 06/11/2023 56 (L) >=60 mL/min/1.73m Final Comment: Estimated Glomerular Filtration Rate (eGFR) [...] DATE: June 12, 2023 TIME: 8:07 AM Radiology Service Progress Note PATIENT NAME: Manish [...] Zurita RT(R) June 12, 2023 8:18 AM documented in this encounter [facility] 05-08-2023 Note HNO ID: [id number] Author: Yordan Feliz MD Service: ? Author [...] Feliz MD cc: Dr. Shaikh Vidal Estrada [address] [place] [id number] [place] [address] 05-08-2023 History of Presen t illness Narrative [...] Feliz MD cc: Dr. Shaikh Vidal Estrada [address] [place] [address] documented in this encounter [facility] 03-20-2023 Note HNO ID: [id number] Author: John England MD Service: ? Author Type: Physician Type: Progress Notes Filed: 03/20/2023 1:24 PM Note Text: NAME: Manihs Root [facility] NO.: [id number] DATE OF SERVICE: March 20, 2023 (Jacquelyn) [...] Ca Stage 3 - 2/5 LN + [place] regimen on protocol Updated Visit, March 20, [...] wishes to procee (more content not included)... [facility] 03-20-2023 Instructions John England MD - 03/20/2023 1:[address] Chest in 3 months Labs same day RTC 1 week after to review. documented in this encounter [facility] 03-20-2023 History of Presen t illness Narrative Images from the original note were not included. NAME: Manish Root [facility] NO.: [id number] DATE OF SERVICE: March 20, 2023 (Jacquelyn) [...] Ca Stage 3 - 2/5 LN + [place] regimen on protocol Updated Visit, March 20, [...] which included preparing to see the patient, [id number] patient care, completing clinical documentation, performing a medically appropriate examination, counseling and educating the patient/family/caregiver, ordering medications, tests, or procedures, independently interpreting results (not separately reported), communicating results to the patient/family/caregiver, and care coordination (not separately reported). John England MD, CPE Hematology and Oncology Services Provided at: [place], [place] CC: Dr. Yordan Morales documented in this encounter [facility] 03-14-2023 Note HNO ID: [id number] Author: Rafael Zurita RT(R) Service: ? Author [...] RT Perlita(R) March 14, 2023 1:52 PM [facility] 03-14-2023 Note HNO ID: [id number] Author: Maggie Partida RN Service: ? Author [...] DATE: March 14, 2023 TIME: 1:55 PM [facility] 03-14-2023 History of Presen t illness Narrative Radiology Service Progress Note DATE OF SERVICE: [...] Value Ref Range Status 02/06/2023 62 >=60 mL/min/1.73m Final Comment: Estimated Glomerular Filtration Rate (eGFR) [...] DATE: March 14, 2023 TIME: 1:55 PM Radiology Service Progress Note PATIENT NAME: Manish [...] RT Perlita(R) March 14, 2023 1:52 PM documented in this encounter [facility] 02-06-2023 Note HNO ID: [id number] Author: Yordan Feliz MD Service: ? Author Type: Physician Type: Progress Notes Filed: 02/11/2023 9:00 AM Note Text: Radiation Oncology - Follow Up Note PATIENT NAME: aMnish Root PATIENT DIAGNOSIS: Oropharyngeal cancer, p16 positive [...] Feliz MD cc: Dr. Shaikh Vidal Estrada [address] [place] [address] [facility] 02-06-2023 Note HNO ID: [id number] Author: John England MD Service: ? Author Type: Physician Type: Progress Notes Filed: 02/06/2023 12:24 PM Note Text: NAME: Manish Root NO.: [id number] DATE OF SERVICE: February 06, 2023 (Jacquelyn) [...] Ca Stage 3 - 2/5 LN + [place] regimen on protocol Updated Visit, February 06, [...] 0 PHYSICAL EXAMIN (more content not included)... [facility] 02-06-2023 Instructions John England MD - 02/06/2023 12:[address] Chest in 5 weeks RTC 6 weeks to review please documented in this encounter [facility] 02-06-2023 History of Presen t illness [...] Feliz MD cc: Dr. Shaikh Vidal Estrada [address] [place] [address] documented in this encounter [facility] 02-06-2023 History of Presen t illness Narrative Images from the original note were not included. NAME: Dk Manish [facility] NO.: [id number] DATE OF SERVICE: February 06, 2023 (juliana) Some elements in this clinic [...] Ca Stage 3 - 2/5 LN + [place] regimen on protocol Updated Visit, February 06, [...] which included preparing to see the patient, [id number] patient care, completing clinical documentation, performing a medically appropriate examination, counseling and educating the patient/family/caregiver, ordering medications, tests, or procedures, communicating with other HCPs (not separately reported), independently interpreting results (not separately reported), communicating results to the patient/family/caregiver, and care coordination (not separately reported). John England MD, CPE Hematology and Oncology Services Provided at: [place], [place] CC: Dr. Yordan Morales documented in this encounter [facility] 02-06-2023 Nurse Note Patient has easy bruising more so on arms, voice is always changing and has a lot of phlegm. Lala Hooper MA documented in this encounter [facility] 01-29-2023 Note HNO ID: [id number] Author: Malcolm Thurston, RT(R) Service: ? Author Type: Technologist Type: [...] 1105 PATIENT DISCHARGED TO: Ambulatory patient, left [place] department area. A Diagnostic radioactive procedure has taken place, with no further precautions necessary other than routine body substance precautions. More information regarding radiation safety can be found using this link: [email or web address] SIGNATURE: RT Aron(R) PATIENT NAME: Manish Root DATE: January 29, 2023 TIME: 11:48 AM PAGER/CONTACT #: [facility] 01-29-2023 Note HNO ID: [id number] Author: Maggie Partida RN Service: ? Author [...] DATE: January 29, 2023 TIME: 11:06 AM [facility] 01-29-2023 History of Presen t illness Narrative Radiology Service Progress Note DATE OF SERVICE: [...] Value Ref Range Status 11/07/2022 71 >=60 mL/min/1.73m Final Comment: Estimated Glomerular Filtration Rate (eGFR) [...] DATE: January 29, 2023 TIME: 11:06 AM RADIOLOGY SERVICE PROGRESS NOTE SERVICE DATE: 01/29/2023 [...] 1105 PATIENT DISCHARGED TO: Ambulatory patient, left [place] department area. A Diagnostic radioactive procedure has taken place, with no further precautions necessary other than routine body substance precautions. More information regarding radiation safety can be found using this link: [email or web address]% 20Nuclear%20Medicine%20Procedur es.pdf SIGNATURE: RT Aron(R) PATIENT NAME: Manish Root DATE: January 29, 2023 TIME: 11:48 AM PAGER/CONTACT #: documented in this encounter [facility] 11-28-2022 Note HNO ID: [id number] Author: Yordan Feliz MD Service: ? Author [...] by: Yordan Feliz MD cc: Mannie [place] [address] [place] [address] [facility] 11-28-2022 History of Presen t illness [...] by: Yordan Feliz MD cc: Mannie Nelson [facility] [place] [place] [address] [place] [address] documented in this encounter [facility] 11-07-2022 Note HNO ID: [id number] Author: John England MD Service: ? Author Type: Physician Type: Progress Notes Filed: 11/07/2022 9:56 AM Note Text: NAME: Manish Root [facility] NO.: [id number] DATE OF SERVICE: November 07, 2022 (Jacquelyn) [...] Ca Stage 3 - 2/5 LN + [place] regimen on protocol Updated Visit, November 07, [...] Gen.: This is (more content not included)... [facility] 11-07-2022 Instructions John England MD - 11/07/2022 9:53 AM EDT Continue seeing Dr. Feliz and Dr. Morales. RTC in 12 -13 weeks (after PET is complete) PET per Dr. Feliz Coordinate return on same date as Dr. Feliz. Labs on day return documented in this encounter [facility] 11-07-2022 History of Presen t illness Narrative Images from the original note were not included. NAME: Manish Root [facility] NO.: [id number] DATE OF SERVICE: November 07, 2022 (Jacquelyn) [...] Ca Stage 3 - 2/5 LN + [place] regimen on protocol Updated Visit, November 07, [...] which included preparing to see the patient, [id number] patient care, completing clinical documentation, performing a medically appropriate examination, counseling and educating the patient/family/caregiver, ordering medications, tests, or procedures, and independently interpreting results (not separately reported). John England MD, CPE Hematology and Oncology Services Provided at: [place], [place] CC: Dr. 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 NAME: Manish Root [facility] NO.: [id number] DATE OF SERVICE: October 31, 2022 (Gokul) [...] Ca Stage 3 - 2/5 LN + [place] regimen on protocol Updated Visit, October 31, [...] APRN.CNP Hematology and Oncology Services Provided at: [place], [place] CC: Dr. Yordan Morales I spent a total of 30 minutes on the date of the service which included preparing to see the patient, [id number] patient care, completing clinical documentation, obtaining and/or reviewing separately obtained history, performing a medically appropriate examination, counseling and educating the pat ient/family/caregiver, ordering medications, tests, or procedures, independently interpreting results (not separately reported), and communicating results to the patient/family/caregiver. documented in this encounterR[facility]04-[facility] History of Present illness Narrative* Yordan [...] by: Yordan Feliz MD cc: Mannie Nelson [facility] [place] [address] Maryam Hodgson [address] [place] [address] [place] [id number] documented in this encounterR[facility]04-[facility] History of Present illness Narrative* Maryam Hodgson APRN.YARD LOADER OPERATOR - 10/25/2022 10:01 AM EDT Images from the original note were not included. NAME: Kian Rootnon [facility] NO.: [id number] DATE OF SERVICE: October 25, 2022 (Gokul) [...] Clinicians involved in Manish Yi Root's care: DIAGNOSIS: Base of Tongue squamous [...] Ca Stage 3 - 2/5 LN + [place] regimen on protocol Updated Visit, October 25, [...] APRN.CNP Hematology and Oncology Services Provided at: [place], [place] CC: Dr. Yordan Morales I spent a total of 30 minutes on the date of the service which included preparing to see the patient, [id number] patient care, completing clinical documentation, obtaining and/or reviewing separately obtained history, performing a medically appropriate examination, counseling and educating the pat ient/family/caregiver, ordering medications, tests, or procedures, independently interpreting results (not separately reported), and communicating results to the patient/family/caregiver. documented in this encounterR[facility]04-[facility]23 History of Present illness Narrative* Yordan Feliz MD - 10/22/2022 12:00 AM EDT [facility] RADIATION ONCOLOGY - COMPLETION NOTE PATIENT: DK MANISH D.: 1945 DATES OF TREATMENT: 09-03-2022 to 10-22-2022 [...] follow-up. Staff Physician Jeyson Feliz M.D. / MARC :18 PM Electronically Signed cc: Dr. 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 Neupogen 480 mcg x 1 today Needs to hydrate. Labs next Saturday CBC, CMP, possible hydration Stay for results - see Maryam documented in this encounterR[facility]04-14-2023 History of Present illness Narrative* John England MD - 10/19/2022 10:05 AM EDT Images from the original note were not included. NAME: Manish Root [facility] NO.: [id number] DATE OF SERVICE: October 19, 2022 (Jacquelyn) [...] Ca Stage 3 - 2/5 LN + [place] regimen on protocol Updated Visit, October 19, 2022: Manish returns with [facility] and is doing well. Feeling better but [...] which included preparing to see the patient, pcnf-cu-zcod patient care, completing clinical documentation, obtaining and/or reviewing separately obtained history, counseling and educating the patient/family/caregiver, ordering medications, cliff ts, or procedures, and independently interpreting results (not separately reported). John England MD, CPE Hematology and Oncology Services Provided at: [place], [place] CC: Dr. Yordan Morales documented in this encounterR[facility]04-10-[facility]23 History of Present illness Narrative* Yordan [...] discussed. Yordan Feliz MD documented in this encounterR[facility]04-04-2023 Miscellaneous Notes* Telephone Encounter - Diana [...] recommendations? Diana García LPN documented in this encounterR[facility]04-03-2023 History of Present illness Narrative* G [...] outlined. Yordan Feliz MD documented in this encounterR[facility]03-31-2023 History of Present illness Narrative* Dee Gil RD - 10/05/2022 10:45 AM EDT Oncology Nutrition Therapy Progress Note Attemped to see patient, however patient left after radiation treatment and did not stay for appointment with dietitian. Signed by: Dee Gil MS, RDN, LD documented in this encounterRiverside [facility]03-27-2023 History of Present illness Narrative* Maryam Hodgson APRN.YARD LOADER OPERATOR - 10/01/2022 11:26 AM EDT Images from the original note were not included. NAME: Manish Root [facility] NO.: [id number] DATE OF SERVICE: October 01, 2022 (Gokul) [...] Ca Stage 3 - 2/5 LN + [place] regimen on protocol Updated Visit, October 01, [...] APRN.CNP Hematology and Oncology Services Provided at: [place], [place] CC: Dr. Yordan Morales I spent a total of 30 minutes on the date of the service which included preparing to see the patient, [id number] patient care, completing clinical documentation, obtaining and/or reviewing separately obtained history, performing a medically appropriate examination, counseling and educating the pat ient/family/caregiver, ordering medications, tests, or procedures, independently interpreting results (not separately reported), and communicating results to the patient/family/caregiver. documented in this encounterR[facility]03-27-2023 History of Present illness Narrative* Yordan [...] outlined. Yordan Feliz MD documented in this encounterRivers[facility]03-20-2023 History of Present illness Narrative* Yordan [...] Continue radiation as outlined. documented in this encounterRivers[facility]03-17-2023 History of Present illness Narrative* Dee [...] Dosing Weight: 84.8 kg Estimated kilocalorie needs: 4661-6873 kilocalories determined by 25-30 kcal/kg Estimated protein needs: 85-102 grams determined by 1.0-1.2 g/kg Current weight Estimated fluid needs: ~9946-0105 milliliters based on 1 mL per kcal [...] with Patient: 15 minutes Signed by: Dee Gil, MS, RDN, LD documented in this encounterRivers[facility]03-13-2023 History of Present illness Narrative* Yordan Feliz MD - 09/17/2022 11:01 AM EDT [...] Continue radiation as outlined. documented in this encounterRivers[facility]03-06-2023 History of Present illness Narrative* Yordan [...] Continue radiation as outlined. documented in this encounterRiverside [facility] Hospital03-03-2023 Miscellaneous Notes* Telephone Encounter - ISH Waite - 09/07/2022 12:11 PM EST SOCIAL WORK FOLLOW UP NOTE: [facility] Date of service:09/07/22 Manish Root is being seen for a follow up social work visit. Today's visit includes: patient TOPICS ADDRESSED: community resources and [facility] PLAN: Assist with financial support applications and Continue follow up as needed F/U APPOINTMENT: PRN Assigned SW listed in Care Team tab: Yes Patient dropped off a partial completed intake form for the [facility]. Jeannette completed the medical section of the [...] as appropriate. CHARLIE Waite documented in this encounterRivers[facility]03-02-2023 Miscellaneous Notes* Telephone Encounter - Rafael [...] protocol. Rafael Meng RN documented in this encounterRiverside [facility] Hospital02-27-2023 History of Present illness Narrative* Nica [...] ordered. Araceli Anne RN documented in this encounterRiverside [facility] Hospital02-27-2023 Instructions* Patient Instructions* John England MD - 09/03/2022 11:12 AM EST Start Cisplatin weekly to start with radiation Labs weekly please. RTC 1 week See Amina / Maryam Labs same day. documented in this encounterRiverside [facility] Hospital02-27-2023 History of Present illness Narrative* John England MD - 09/03/2022 10:45 AM EST Images from the original note were not included. NAME: Manish Root [facility] NO.: [id number] DATE OF SERVICE: September 03, 2022 (Jacquelyn) Some elements in this clinic note that are critical to medical decision making have been carefully reviewed and included from a prior clinic note dated: August 16, 2022 Referring Provider: Ттаьяна Feliz Additional Clinicians involved in Manish Root's [...] Ca Stage 3 - 2/5 LN + [place] regimen on protocol Updated Visit, September 03, [...] which included preparing to see the patient, xfdq-ae-ovlu patient care, completing clinical documentation, performing a medically appropriate examination, counseling and educating the patient/family/caregiver, ordering medications, tests, or p rocedures, communicating with other HCPs (not separately reported), independently interpreting results (not separately reported), and care coordination (not separately reported). John England MD, CPE Hematology and Oncology Services Provided at: [place], [place] CC: MD Serene Mcclendon MD documented in this encounterRiverside [facility]02-27-2023 History of Present illness Narrative* Yordan [...] Continue radiation as prescribed. documented in this encounterRiverside [facility] Hospital02-22-2023 Miscellaneous Notes* Telephone Encounter - Rafael Meng RN - 08/29/2022 12:52 PM EST Pt calls w/ questions pertaining to his upcoming treatment. Questions reviewed and answered. Pt denies any further questions at this time. Rafael Meng RN documented in this encounterRiverside [facility] Hospital02-21-2023 Miscellaneous Notes* Telephone Encounter - Rafael Meng RN - 08/28/2022 5:17 PM EST Pt notified and verbalizes understanding. Rafael Megn RN * Telephone Encounter - John England [...] Thanks! Rafael Meng RN documented in this encounterRiverside [facility] Hospital02-20-2023 Miscellaneous Notes* Telephone Encounter - Rafael Meng RN - 08/27/2022 11:23 AM EST Pt had several questions pertaining to treatment while he was here today. Questions reviewed and answered in person. No additional questions noted. Appointment reminder provided to pt as well. Rafael Meng RN documented in this encounterRiverside [facility] Hospital02-20-2023 History of Present illness Narrative* Mayte Burnett RN - 08/27/2022 8:45 AM EST Radiology Service Progress Note DATE OF SERVICE: August 27, 2022 TIME: 9:46 AM PATIENT IDENTITY VERIFICATION COMPLETED USING TWO [...] CREATININE: Creatinine Date Value Ref Range Status 08/23/2022 0.97 0.73 - 1.22 mg/dL Final Estimated Glomerular Filtration Rate Date Value Ref Range Status 08/23/2022 80 >=60 mL/min/1.73m Final Comment: Estimated Glomerular Filtration Rate (eGFR) is calculated using the 2020 CKD-EPI creatinine equation. This equation utilizes serum creatinine, sex, and age as parameters. The creatinine assay has traceable calibration to isotope dilution- mass spectrometry. Refer to KDIGO guidelines for clinical interpretation. In patients with unstable renal function, e.g. those with acute kidney injury, the eGFRmay not accurately reflect actual GFR. P.O.C.T. RESULTS: POC done: Yes, See Lab Tab August 27, 2022 TREATMENT: N/A IV SITE: Ambulatory: A peripheral IV was started in the Right antecubital site with a Angio cath: 22 gauge. IV SITE APPEARANCE: Clean,Dry and Intact SIGNATURE: Mayte Burnett RN PATIENT NAME: Manish Root DATE: August 27, 2022 TIME: 9:46 AM * Rafael Zurita, RT(R) - 08/27/2022 8:45 AM EST RADIOLOGY SERVICE PROGRESS NOTE SERVICE DATE: 08/27/2022 SERVICE TIME: 9:53 AM PATIENT IDENTITY VERIFICATION COMPLETED USING TWO (2) STANDARD IDENTIFIERS: Name and Date of confirmed by patient verbally POST EXAM PIV STATUS: Discontinued PROCEDURE TYPE: NM INJECT: PET/CT BODY SCAN. 7.9 mCi F18 FDG. No other medications given.. ADMINISTRATION TIME: 0942 PATIENT DISCHARGED TO: Ambulatory patient, left [place] department area. A Diagnostic radioactive procedure has taken place, with no further precautions necessary other than routine body substance precautions. More information regarding radiation safety can be found usingthis link: [email or web address]-% 20Diagnostic%20Nuclear%20Medicine%20Procedures.pdf SIGNATURE: Rafael Zurita, RT(R) PATIENT NAME: Manish Root DATE: August 27, 2022 TIME: 9:53 AM PAGER/CONTACT #: documented in this encounterRiverside [facility] Hospital02-17-2023 Miscellaneous Notes* Telephone Encounter - Madonna Barnes - 08/24/2022 9:[address] Morrowk patient. Patient has been scheduled for RV [...] Thanks! Rafael Meng RN documented in this encounterRiverside [facility] Hospital02-16-2023 History of Present illness Narrative* G Jeyson Feliz MD - 08/23/2022 12:00 AM EST MANISH ROOT [id number] 08/23/2022 [facility] SIMULATION NOTE DATE OF SIMULATION: 08/23/2022 THERAPIST: Vinita Calderon MACHINE: [employer] DIAGNOSIS: Malignant neoplasm of base of [id number] AREA: H&N CONTRAST: IV Consent in Epic: [...] nursing. Electronically Signed Jeyson Feliz M.D. / ARTHUR 1:21 AM documented in this encounterRiverside [facility] Hospital02-16-2023 History of Present illness Narrative* Yordan Feliz MD - 08/23/2022 12:00 AM EST MANISH ROOT [id number] 08/23/2022 [facility] Department of Radiation Oncology Treatment Planning Note [...] Feliz M.D. 0:14 AM documented in this encounterRiverside [facility] Hospital02-14-2023 Miscellaneous Notes* Telephone Encounter - Rafael Meng RN - 08/21/2022 3:16 PM EST Pt will be in on for education (Cisplatin). Scripts for antiemetics pended. Miguel A: Please place chemotherapy orders. Thanks! Rafael Meng RN documented in this encounterRiverside [facility] Hospital02-13-2023 History of Present illness Narrative* Dee Gil, KARLOS - 08/20/2022 7:27 AM EST Oncology Nutrition [...] Dosing Weight: 84.7 kg Estimated kilocalorie needs: 5916-8531 kilocalories determined by 25-30 kcal/kg Estimated protein needs: 85-102 grams determined by 1.0-1.2 g/kg Dosing weight Estimated fluid needs: ~3475-7361 milliliters based on 1 mL per kcal [...] Gil MS, RDN, LD documented in this encounterRiverside [facility] Hospital02-09-2023 Instructions* Patient Instructions* John England MD - 08/16/2022 4:45 PM EST Will plan Cisplatin weekly to start with radiation Needs labs next visit at [facility]. RTC prior to start Consent signed Needs education documented in this encounterRiverside [facility] Hospital02-09-2023 History of Present illness Narrative* John England MD - 08/16/2022 4:06 PM EST Images from the original note were not included. NAME: Manish Root [facility] NO.: [id number] DATE OF SERVICE: August 16, 2022 Referring [...] Ca Stage 3 - 2/5 LN + [place] regimen on protocol Initial Visit, August 16, [...] which included preparing to see the patient, hnzy-ao-upuk patient care, completing clinical documentation, performing a medically appropriate examination, counseling and educating the patient/family/caregiver, ordering medications, tests, or p rocedures, communicating with other HCPs (not separately reported), independently interpreting results (not separately reported), and care coordination (not separately reported). John England MD, CPE Hematology and Oncology Services Provided at: [facility] [place] CC: MD Serene Mcclendon MD documented in this encounterRiverside [facility] Hospital02-08-2023 Miscellaneous Notes* Telephone Encounter - Randal Brooks - 08/15/2022 1:14 PM EST Patient called back and said that he is scheduled at [facility] in [place], [place] 08/15/22. Dental evaluation form has been faxed to: [phone]. Randal Brooks * Telephone Encounter - Randal Brooks - 08/15/2022 11:47 AM EST Patient has been scheduled for dental appointment at [facility] on 09/04. Due to the nature [...] Samayoa RN - 08/15/2022 9:56 AM EST [facility] will need referral placed to see pt and schedule dental eval for clearance. Dr Dave- can you please sign in Dr Feliz's absence? Thank you Nela Samayoa RN documented in this encounterRiverside [facility] Hospital02-07-2023 History of Present illness Narrative* Yordan [...] the lung. Would recommend concurrent radiation with ki[place] tribe based chemotherapy. Patient is eligible for current [...] by: Yordan Feliz MD cc: Mannie Nelson [address] [place], [place] [address] [address] Serene Morales MD [address] [place] [id number] documented in this encounterRiverside Methodist Hospital02-07-2023 Nurse Note* Nela Samayoa RN - 08/14/2022 10:58 AM EST Radiation Therapy - Patient Education Note PATIENT NAME: aMnish Root PATIENT August 14, 2022 [facility] [place] FACILITY/LOCATION: [facility] READINESS TO LEARN Cognitive Ability: Alert and [...] by: Nela Samayoa RN documented in this encounterRiverside Methodist Hospital01-24-2023 NoteOPERATIVE NOTE OPERATION DATE: 07/31/2022 PRIMARY [...] to the recovery room in good condition.[facility] [id number] NoteOPERATIVE NOTE OPERATION DATE: 07/18/2022 PREOPERATIVE DIAGNOSIS: [...] on the pathology results. CC: [facility] NoteChief Complaint consultation for colon recall HPI Staff 76 year old male presents on consultation from Dr. Nelson for colon recall. Last colonoscopy completed 2017 with tubular adenoma. History of colon cancer [...] cancer History of colon polyps History of NM (myocardial infarction) HTN (hypertension) Hypercholesterolemia OJEDA (nonalcoholic [...] Oral, Daily ergocalciferol 50,000 intl units Cap, 24089 International_Unit= 1 cap(s), Oral, qWeek fenofibrate 134 [...] 06/13/2022 Family History Patient (more content not included)...Kindred HealthcareComment on above:Result Comment: Electronically Signed By: JAQUAN WELCH, Renea Anderson\Date and Time Signed: 06/13/22 15:31 [id number] History of Past illness Narrative* Problem Noted Date Resolved Date 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/28/20 15 04/28/2015 documented as of this encounter (statuses as of 08/14/2022) [address]22-2015 History of Past illness Narrative* Problem Noted Date Resolved Date 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/28/20 15 04/28/2015 documented as of this encounter (statuses as of 08/14/2022) [address]22-2015 History of Past illness Narrative* Problem Noted Date Resolved Date 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/28/20 15 04/28/2015 documented as of this encounter (statuses as of 08/15/2022) [address]22-2015 History of Past illness Narrative* Problem Noted Date Resolved Date 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/28/20 15 04/28/2015 documented as of this encounter (statuses as of 08/17/2022) [address]22-2015 History of Past illness Narrative* Problem Noted Date Resolved Date 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/28/20 15 04/28/2015 documented as of this encounter (statuses as of 08/20/2022) [address]22-2015 History of Past illness Narrative* Problem Noted Date Resolved Date 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/28/20 15 04/28/2015 documented as of this encounter (statuses as of 08/22/2022) [address]22-2015 History of Past illness Narrative* Problem Noted Date Resolved Date 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/28/20 15 04/28/2015 documented as of this encounter (statuses as of 08/22/2022) [address]22-2015 History of Past illness Narrative* Problem Noted Date Resolved Date 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/28/20 15 04/28/2015 documented as of this encounter (statuses as of 08/24/2022) [address]22-2015 History of Past illness Narrative* Problem Noted Date Resolved Date 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/28/20 15 04/28/2015 documented as of this encounter (statuses as of 08/24/2022) [address]22-2015 History of Past illness Narrative* Problem Noted Date Resolved Date 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/28/20 15 04/28/2015 documented as of this encounter (statuses as of 08/27/2022) [address]22-2015 History of Past illness Narrative* Problem Noted Date Resolved Date 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/28/20 15 04/28/2015 documented as of this encounter (statuses as of 08/27/2022) [address]-2015 History of Past illness Narrative* Problem Noted Date Resolved Date 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/28/20 15 04/28/2015 documented as of this encounter (statuses as of 08/28/2022) [address]2015 History of Past illness Narrative* Problem Noted Date Resolved Date 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/28/20 15 04/28/2015 documented as of this encounter (statuses as of 08/29/2022) [address]2015 History of Past illness Narrative* Problem Noted Date Resolved Date 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/28/20 15 04/28/2015 documented as of this encounter (statuses as of 09/03/2022) [address]2015 History of Past illness Narrative* Problem Noted Date Resolved Date 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/28/20 15 04/28/2015 documented as of this encounter (statuses as of 09/03/2022) [address]2015 History of Past illness Narrative* Problem Noted Date Resolved Date 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/28/20 15 04/28/2015 documented as of this encounter (statuses as of 09/04/2022) [address]2015 History of Past illness Narrative* Problem Noted Date Resolved Date 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/28/20 15 04/28/2015 documented as of this encounter (statuses as of 09/06/2022) [address]2015 History of Past illness Narrative* Problem Noted Date Resolved Date 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/28/20 15 04/28/2015 documented as of this encounter (statuses as of 09/07/2022) [address]2015 History of Past illness Narrative* Problem Noted Date Resolved Date 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/28/20 15 04/28/2015 documented as of this encounter (statuses as of 09/10/2022) [address]2015 History of Past illness Narrative* Problem Noted Date Resolved Date 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/28/20 15 04/28/2015 documented as of this encounter (statuses as of 09/10/2022) [address]2015 History of Past illness Narrative* Problem Noted Date Resolved Date 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/28/20 15 04/28/2015 documented as of this encounter (statuses as of 09/11/2022) [address]2015 History of Past illness Narrative* Problem Noted Date Resolved Date 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/28/20 15 04/28/2015 documented as of this encounter (statuses as of 09/17/2022) [address]2015 History of Past illness Narrative* Problem Noted Date Resolved Date 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/28/20 15 04/28/2015 documented as of this encounter (statuses as of 09/18/2022) [address]2015 History of Past illness Narrative* Problem Noted Date Resolved Date 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/28/20 15 04/28/2015 documented as of this encounter (statuses as of 09/21/2022) [address]2015 History of Past illness Narrative* Problem Noted Date Resolved Date 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/28/20 15 04/28/2015 documented as of this encounter (statuses as of 09/24/2022) [address]2015 History of Past illness Narrative* Problem Noted Date Resolved Date 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/28/20 15 04/28/2015 documented as of this encounter (statuses as of 10/01/2022) [address]2015 History of Past illness Narrative* Problem Noted Date Resolved Date 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/28/20 15 04/28/2015 documented as of this encounter (statuses as of 10/03/2022) [address]2015 History of Past illness Narrative* Problem Noted Date Resolved Date 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/28/20 15 04/28/2015 documented as of this encounter (statuses as of 10/05/2022) [address]2015 History of Past illness Narrative* Problem Noted Date Resolved Date 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/28/20 15 04/28/2015 documented as of this encounter (statuses as of 10/08/2022) [address]2015 History of Past illness Narrative* Problem Noted Date Resolved Date 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/28/20 15 04/28/2015 documented as of this encounter (statuses as of 10/09/2022) [address]2015 History of Past illness Narrative* Problem Noted Date Resolved Date 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/28/20 15 04/28/2015 documented as of this encounter (statuses as of 10/11/2022) [address]2015 History of Past illness Narrative* Problem Noted Date Resolved Date 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/28/20 15 04/28/2015 documented as of this encounter (statuses as of 10/15/2022) [address]2015 History of Past illness Narrative* Problem Noted Date Resolved Date 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/28/20 15 04/28/2015 documented as of this encounter (statuses as of 10/19/2022) [address]2015 History of Past illness Narrative* Problem Noted Date Resolved Date 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/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 15 04/28/2015 documented as of this encounter (statuses as of 10/20/2022) [address]2015 History of Past illness Narrative* Problem Noted Date Resolved Date 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/28/20 15 04/28/2015 documented as of this encounter (statuses as of 10/26/2022) [address]2015 History of Past illness Narrative* Problem Noted Date Resolved Date 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/28/20 15 04/28/2015 documented as of this encounter (statuses as of 2022) [address]2015 History of Past illness Narrative* Problem Noted Date Resolved Date 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/28/20 15 04/28/2015 documented as of this encounter (statuses as of 2022) [address]22[address]2015 History of Past illness Narrative* Problem Noted Date Resolved Date 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/28/20 15 04/28/2015 documented as of this encounter (statuses as of 2022) [address]2015 History of Past illness Narrative* Problem Noted Date Resolved Date 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/28/20 15 04/28/2015 documented as of this encounter (statuses as of 11/07/2022) [address]2015 History of Past illness Narrative* Problem Noted Date Resolved Date 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/28/20 15 04/28/2015 documented as of this encounter (statuses as of 11/07/2022) [address]2015 History of Past illness Narrative* Problem Noted Date Resolved Date 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/28/20 15 04/28/2015 documented as of this encounter (statuses as of 12/04/2022) [address]2015 History of Past illness Narrative* Problem Noted Date Diagnosed Date Resolved Date 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 04/28/2015 documented as of this encounter (statuses as of 02/06/2023) [address]22-2015 History of Past illness Narrative* Problem Noted Date Diagnosed Date Resolved Date 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 04/28/2015 documented as of this encounter (statuses as of 02/06/2023) [address]2015 History of Past illness Narrative* Problem Noted Date Diagnosed Date Resolved Date 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 04/28/2015 documented as of this encounter (statuses as of 02/11/2023) [address]2015 History of Past illness Narrative* Problem Noted Date Diagnosed Date Resolved Date 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 04/28/2015 documented as of this encounter (statuses as of 03/20/2023) [facility]2015 History of Past illness Narrative* Problem Noted Date Diagnosed Date Resolved Date 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 04/28/2015 documented as of this encounter (statuses as of 05/15/2023) [address]22-2015 History of Past illness Narrative* Problem Noted Date Diagnosed Date Resolved Date 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 04/28/2015 documented as of this encounter (statuses as of 10/17/2023) [facility] No data available for this section General Surgery [facility] Evaluation note* Diagnosis 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, unspecified website programmer and neck cancer (HCC) Malignant neoplasm of head, face, and neck [facility] [place] [facility] Diagnosis 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, unspecified site [facility] [place] [facility]* Diagnosis 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) [facility] [place] [facility]* Diagnosis 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, unspecified site [facility] [place] [facility]* Diagnosis 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, unspecified site [facility] [place] [facility] Diagnosis 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 [facility] [place] [facility]* Diagnosis 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 [facility] Diagnosis 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, unspecified site [facility] [place] [facility]* Diagnosis 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 [facility] Diagnosis 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, unspecified site [facility] [place] [facility]* Diagnosis 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 [facility] [place] [facility]* Diagnosis 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, unspecified site [facility] Diagnosis 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) [facility] [place] [facility]* Diagnosis 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 [facility]* Diagnosis 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, unspecified site [facility] [place] [facility]* Diagnosis Tongue cancer (HCC)- Primary Malignant [...] 2 diabetes mellitus without complication, unspecified whether [facility] insulin use (HCC) Unspecified essential hypertension documented [...] transport and metabolism documented in this encounter [facility] note* Diagnosis 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 documented in this encounter [facility] note* Diagnosis Other specified disorders of thyroid- Primary documented in this encounter [facility] note* Diagnosis 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 Lung nodules Other nonspecific abnormal finding of lung field Stage 3 chronic kidney disease, unspecified whether stage 3a or 3b CKD (HCC) documented in this encounter [facility] note* Diagnosis Head and neck cancer (HCC)- Primary Malignant neoplasm of head, face, and neck documented in this encounter [facility] noteNo assessment information [facility]Del[facility] Work Phone: Evaluation note* Diagnosis Lung nodules Other nonspecific abnormal finding of lung field 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) documented in this encounter [facility] note* Diagnosis 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) Mass of right lung documented in this encounter [facility] note* Diagnosis Lung nodules Other nonspecific abnormal finding of lung field documented in this encounter [facility] note* Diagnosis 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) documented in this encounter [facility] note* Diagnosis Tongue cancer (HCC) 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, unspecified website programmer and neck cancer (HCC) Malignant neoplasm of head, face, and neck documented in this encounter [facility] Discharge instructions No data available for this section General Surgery [place] Progress note No data available for this section General Surgery [place] Reason for referral (narrative)* Diagnostic Procedure Only (Routine) - Authorized Specialty Diagnoses / Procedures Referred By Contac t Referred To Contact MOLECULAR & FUNCTIONAL IMAGING Diagnoses 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) Procedures NM PET/CT SKULL-THIGH SUBSEQUENT PET IMAGING CT ATTENUATION SKULL BASE MID-THIGH Yordan Feliz MD [address] [place] [address] [place] [address] Molecular & Functional Imaging [address] [place] [address] Referral ID Status Reason Start Date Expiration Date Visits Requested Visits Authorized [id number] Authorized Auto-Generat ed Referral 01/28/2023 12/28/2023 1 1 [facility] for referral (narrative)* Diagnostic Procedure Only (Routine) - Closed Specialty Diagnoses / Procedures Referred By Contac t Referred To Contact MOLECULAR & FUNCTIONAL IMAGING Diagnoses 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) Procedures NM PET/CT SKULL-THIGH SUBSEQUENT PET IMAGING CT ATTENUATION SKULL BASE MID-THIGH Yordan Feliz MD [address] [place] [address] [place] [address] Molecular & Functional Imaging [address] [place] [address] Referral ID Status Reason Start Date Expiration Date V isits Requested Visits Authorized [id number] Closed Auto-Generate d Referral 01/28/2023 12/28/2023 1 1 [facility] for referral (narrative)* Diagnostic Procedure Only (Routine) - Closed Specialty Diagnoses / Procedures [facility] Referred To Contact MOLECULAR & FUNCTIONAL IMAGING Diagnoses Tongue cancer (HCC) Head and neck cancer (HCC) Procedures NM PET/CT SKULL-THIGH INITIAL PET IMAGING CT ATTENUATION SKULL BASE MID-THIGH Yordan Feliz MD [address] [place] [address] [place] [address] Molecular & Functional Imaging [address] [place] [address] Referral ID Status Reason Start Date Expiration Date V isits Requested Visits Authorized [id number] Closed Auto-Generate d Referral 08/14/2022 09/13/2023 1 1 [facility] Summary Purpose Family History No Family History Records FoundNo Family History Records FoundNo Family History Records FoundNo Family History Records Found Advance Directives Advance Directive Response Recorded Date/ Time Advance Directives No January 13 1:22pm Reason for Referral 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) Mass of right lung Procedures CT CHEST W IVCON DIAGNOSTIC COMPUTED TOMOGRAPHY THORAX W/CONTRAST John England MD [address] [place] [address] [place] [address] [place] [address] Referral ID Status Reason Start Date Expiration Date Visits Requested Visits Authorized [id number] Authorized Auto-Generat ed Referral 04/18/2024 1 1 Specialty Diagnoses / Procedures Referred By Contac t Referred To Contact CT IMAGING Diagnoses Lung nodules Procedures CT CHEST W IVCON DIAGNOSTIC COMPUTED TOMOGRAPHY THORAX W/CONTRAST John England MD [address] [place] [address] [place] [address] Ct Imaging Referral ID Status Reason Start Date Expiration Date Visits Requested Visits Authorized [id number] Authorized Auto-Generat ed Referral 03/13/2023 03/07/2024 1 1 Specialty Diagnoses / Procedures Referred By Contac t Referred To Contact Diagnoses Tongue cancer (HCC) Procedures CT SIM PLANNING RADIATION ONCOLOGY THER RAD SIMULAJ-AIDED FIELD SETTING COMPLEX Yordan Feliz MD [address] [place] [address] [place] [address] Referral ID Status Reason Start Date Expiration Date Visits Requested Visits Authorized [id number] Pending Review PCP Requested Referral 08/23/2022 11/21/2022 1 1 Specialty Diagnoses / Procedures Referred By Contac t Referred To Contact Dentistry Diagnoses Tongue cancer (HCC) Procedures CONSULT TO DENTISTRY OFFICE/OUTPATIENT [facility] MDM 60-74 MINUTES Travis Dave MD [address] [place] [address] [place] [address] Referral ID Status Reason Start Date Expiration Date Visits Requested Visits Authorized [id number] Pending Review PCP Requested Referral 08/15/2022 08/15/2023 1 1 Specialty Diagnoses / Procedures Referred By Contac t Referred To Contact Oncology Diagnoses Head and neck cancer (HCC) Procedures CONSULT TO ONCOLOGY OFFICE/OUTPATIENT [facility] MDM 60-74 MINUTES Yordan Feliz MD [address] [place] [address] [place] [address] Referral ID Status Reason Start Date Expiration Date Visits Requested Visits Authorized [id number] Authorized PCP Requested Referral 08/14/2022 08/14/2023 1 1 Specialty Diagnoses / Procedures Referred By Jemima vyas Referred To Contact MOLECULAR & FUNCTIONAL IMAGING Diagnoses Tongue cancer (HCC) Head and neck cancer (HCC) Procedures NM PET/CT SKULL-THIGH INITIAL PET IMAGING CT ATTENUATION SKULL BASE MID-THIGH Yordan Feliz MD [address] [place] [address] [place] [address] Molecular & Functional Imaging [address] [place] [address] Referral ID Status Reason Start Date Expiration Date Visits Requested Visits Authorized [id number] Pending Review Auto-Generat ed Referral 08/14/2022 09/13/2023 [...] Reason for Visit Chief Complaint Plugged ears Chief Complaint Plugged ears Bug bite on R arm Additional Source Comments Patient Care team informatio n (unrecognized section and content) Box Order Person Relationship Specialty Start Date End Date Mannie Nelson MD [address] [id number] PCP - General Family Medicine 11/16/11 Box Order Person Relationship Specialty Start Date End Date Mannie Nelson MD [address] [place] [id number] PCP - General Family Medicine 11/16/11 Box Order Person Relationship Specialty Start Date End Date Mannie Nelson MD [address] [place] [address] PCP - General Family Medicine 11/16/11 Box Order Person Relationship Specialty Start Date End Date Mannie Nelson MD [address] [place] [address] PCP - General Family Medicine 11/16/11 Box Order Person Relationship Specialty Start Date End Date Mannie Nelson MD [address] [place] [address] PCP - General Family Medicine 11/16/[address] [place] [address] Registered Dietitian Nutrition 08/20/22 Box Order Person Relationship Specialty Start Date End Date Mannie Nelson MD [address] [place] [address] PCP - General Family Medicine 11/16/11 Dee Gil, RD [address] [facility] [place] [address] Registered Dietitian Nutrition 08/20/22 John England MD [address] [place] [address] Physician Hematology/Oncology 08/21/22 Maryam Hodgson, YENY.YARD LOADER OPERATOR [address] [place] [address] Nurse Practitioner Hematology/Oncology 08/21/22 Rafael Meng, [place] [address] [place] [address] Specialty Municipal Firefighter Hematology/Oncology 08/21/22 Yordan Feliz MD [address] [place] [address] Physician Radiation Oncology 08/21/22 Box Order Person Relationship Specialty Start Date End Date Mannie Nelson MD [address] [place] [address] PCP - General Family Medicine 11/16/[address] [facility] [address] [place], [place] [id number] Registered Dietitian Nutrition 08/20/22 John England MD [address] [facility] [address] [place], [place] [id number] Physician Hematology/Oncology 08/21/22 Maryam Hodgson, WATER RESOURCE ENGINEER.YARD LOADER OPERATOR [address] [place] [address] Nurse Practitioner Hematology/Oncology 08/21/22 Rafael Meng, RN [address] [place] [address] Specialty Municipal Firefighter Hematology/Oncology 08/21/22 Yordan Feliz MD [address] [place] [address] Physician Radiation Oncology 08/21/22 Box Order Person Relationship Specialty Start Date End Date Mannie Nelson MD [address] [place] [address] PCP - General Family Medicine 11/16/11 Dee Gil, RD [address] [place] [address] Registered Dietitian Nutrition 08/20/22 John England MD [address] [place] [address] Physician Hematology/Oncology 08/21/22 Maryam Hodgson, WATER RESOURCE ENGINEER.YARD LOADER OPERATOR [address] [place] [address] Nurse Practitioner Hematology/Oncology 08/21/22 Rafael Meng, RN [address] [place] [address] Specialty Municipal Firefighter Hematology/Oncology 08/21/22 Yordan Feliz MD [address] [place] [address] Physician Radiation Oncology 08/21/22 Box Order Person Relationship Specialty Start Date End Date Mannie Nelson MD [address] [place] [address] PCP - General Family Medicine 11/16/[address] [place] [address] Registered Dietitian Nutrition 08/20/22 John England MD [address] [place] [address] Physician Hematology/Oncology 08/21/22 Maryam Hodgson, WATER RESOURCE ENGINEER.YARD LOADER OPERATOR [address] [place] [address] Nurse Practitioner Hematology/Oncology 08/21/22 Rafael Meng, [place] [address] [place] [address] Specialty Municipal Firefighter Hematology/Oncology 08/21/22 Yordan Feliz MD [address] [place] [address] Physician Radiation Oncology 08/21/22 Box Order Person Relationship Specialty Start Date End Date Mannie Nelson MD [address] [place] [address] PCP - General Family Medicine 11/16/[address] [place] [address] Registered Dietitian Nutrition 08/20/22 John England MD [address] [place] [address] Physician Hematology/Oncology 08/21/22 Maryam Hodgson, WATER RESOURCE ENGINEER.YARD LOADER OPERATOR [address] [place] [address] Nurse Practitioner Hematology/Oncology 08/21/22 Rafael Meng, [place] [address] [place] [address] Specialty Municipal Firefighter Hematology/Oncology 08/21/22 Yordan Feliz MD [address] [place] [address] Physician Radiation Oncology 08/21/22 Box Order Person Relationship Specialty Start Date End Date Mannie Nelson MD [address] [place] [address] PCP - General Family Medicine 11/16/[address] [place] [address] Registered Dietitian Nutrition 08/20/22 John England MD [address] [place] [address] Physician Hematology/Oncology 08/21/22 Maryam Hodgson, WATER RESOURCE ENGINEER.YARD LOADER OPERATOR [address] [place] [address] Nurse Practitioner Hematology/Oncology 08/21/22 Rafael Meng, [place] [address] [place] [address] Specialty Municipal Firefighter Hematology/Oncology 08/21/22 Yordan Feliz MD [address] [place] [address] Physician Radiation Oncology 08/21/22 Box Order Person Relationship Specialty Start Date End Date Mannie Nelson MD [address] [place] [address] PCP - General Family Medicine 11/16/11 Box Order Person Relationship Specialty Start Date End Date Mannie Nelson MD [address] [place] [address] PCP - General Family Medicine 11/16/[address] [place] [address] Registered Dietitian Nutrition 08/20/22 John England MD [address] [place] [address] Physician Hematology/Oncology 08/21/22 Maryam Hodgson, WATER RESOURCE ENGINEER.YARD LOADER OPERATOR [address] [facility] [place] [address] Nurse Practitioner Hematology/Oncology 08/21/22 Rafael Meng, [place] [address] [place] [address] Specialty Municipal Firefighter Hematology/Oncology 08/21/22 Yordan Feliz MD [address] [place] [address] Physician Radiation Oncology 08/21/22 Box Order Person Relationship Specialty Start Date End Date Mannie Nelson MD [address] [place] [address] PCP - General Family Medicine 11/16/[address] [facility] [place] [address] Registered Dietitian Nutrition 08/20/22 John England MD [address] [place] [address] Physician Hematology/Oncology 08/21/22 Maryam Hodgson, WATER RESOURCE ENGINEER.YARD LOADER OPERATOR [address] [place] [address] Nurse Practitioner Hematology/Oncology 08/21/22 Rafael Meng, [place] [address] [place] [address] Specialty Municipal Firefighter Hematology/Oncology 08/21/22 Yordan Feliz MD [address] [place] [address] [place] [address] Physician Radiation Oncology 08/21/22 Box Order Person Relationship Specialty Start Date End Date Mannie Nelson MD [address] [place] [address] PCP - General Family Medicine 11/16/[address] [place] [address] Registered Dietitian Nutrition 08/20/22 John England MD [address] [place] [address] Physician Hematology/Oncology 08/21/22 Maryam Hodgson, WATER RESOURCE ENGINEER.YARD LOADER OPERATOR [address] [place] [place] [address] Nurse Practitioner Hematology/Oncology 08/21/22 Rafael Meng, [place] [address] [place] [address] Specialty Municipal Firefighter Hematology/Oncology 08/21/22 Yordan Feliz MD [address] [place] [address] Physician Radiation Oncology 08/21/22 Box Order Person Relationship Specialty Start Date End Date Mannie Nelson MD [address] [facility] [place] [address] PCP - General Family Medicine 11/16/11 Dee Gil, KARLOS [address] [place] [address] Registered Dietitian Nutrition 08/20/22 John England MD [address] [place] [address] Physician Hematology/Oncology 08/21/22 Maryam Hodgson, WATER RESOURCE ENGINEER.YARD LOADER OPERATOR [address] [place] [address] Nurse Practitioner Hematology/Oncology 08/21/22 Rafael Meng, [place] [address] [place] [place] [address] Specialty Municipal Firefighter Hematology/Oncology 08/21/22 Yordan Feliz MD [address] [place] [address] Physician Radiation Oncology 08/21/22 Box Order Person Relationship Specialty Start Date End Date Mannie Nelson MD [address] [place] [address] PCP - General Family Medicine 11/16/11 Dee Gil, KARLOS [address] [place] [address] Registered Dietitian Nutrition 08/20/22 John England MD [address] [place] [address] Physician Hematology/Oncology 08/21/22 Maryam Hodgson, WATER RESOURCE ENGINEER.YARD LOADER OPERATOR [address] [place] [address] Nurse Practitioner Hematology/Oncology 08/21/22 Rafael Meng, RN [address] [place] [address] Specialty Municipal Firefighter Hematology/Oncology 08/21/22 Yordan Feliz MD [address] [place] [address] Physician Radiation Oncology 08/21/22 Marysol Purvis LSW Tax Agent 09/07/22 Box Order Person Relationship Specialty Start Date End Date Mannie Nelson MD [address] [place] [address] PCP - General Family Medicine 11/16/[address] [place] [address] Registered Dietitian Nutrition 08/20/22 John England MD [address] [place] [address] Physician Hematology/Oncology 08/21/22 Maryam Hodgson, WATER RESOURCE ENGINEER.YARD LOADER OPERATOR [address] [place] [address] Nurse Practitioner Hematology/Oncology 08/21/22 Rafael Meng, RN [address] [place] [address] Specialty Municipal Firefighter Hematology/Oncology 08/21/22 Yordan Feliz MD [address] [place] [address] Physician Radiation Oncology 08/21/22 Marysol Purvis LSW Tax Agent 09/07/22 Box Order Person Relationship Specialty Start Date End Date Mannie Nelson MD [address] [place] [address] PCP - General Family Medicine 11/16/[address] [place] [address] Registered Dietitian Nutrition 08/20/22 John England MD [address] [facility] [place], [place] [address] Physician Hematology/Oncology 08/21/22 Maryam Hodgson, WATER RESOURCE ENGINEER.YARD LOADER OPERATOR [address] [place] [address] Nurse Practitioner Hematology/Oncology 08/21/22 Rafael Meng, RN [address] [place] [address] Specialty Municipal Firefighter Hematology/Oncology 08/21/22 Yordan Feliz MD [address] [place] [address] Physician Radiation Oncology 08/21/22 Marysol Purvis LSW Tax Agent 09/07/22 Box Order Person Relationship Specialty Start Date End Date Mannie Nelson MD [address] [place] [address] PCP - General Family Medicine 11/16/11 Dee Gil, RD [address] [place] [address] Registered Dietitian Nutrition 08/20/22 John England MD [address] [place] [address] Physician Hematology/Oncology 08/21/22 Maryam Hodgson, WATER RESOURCE ENGINEER.YARD LOADER OPERATOR [address] [place] [address] Nurse Practitioner Hematology/Oncology 08/21/22 Rafael Meng, RN [address] [place] [address] Specialty Municipal Firefighter Hematology/Oncology 08/21/22 Yordan Feliz MD [address] [place] [address] Physician Radiation Oncology 08/21/22 Marysol Purvis LSW Tax Agent 09/07/22 Box Order Person Relationship Specialty Start Date End Date Mannie Nelson MD [address] [place] [address] PCP - General Family Medicine 11/16/11 Dee Gil, RD [address] [facility] [place] [address] Registered Dietitian Nutrition 08/20/22 John England MD [address] [facility] [place] [address] Physician Hematology/Oncology 08/21/22 Maryam Hodgson, YENY.YARD LOADER OPERATOR [address] [place] [address] Nurse Practitioner Hematology/Oncology 08/21/22 Rafael Meng, [place] [address] [place] [address] Specialty Municipal Firefighter Hematology/Oncology 08/21/22 Yordan Feliz MD [address] [place] [address] Physician Radiation Oncology 08/21/22 Marysol Purvis LSW Tax Agent 09/07/22 Box Order Person Relationship Specialty Start Date End Date Mannie Nelson MD [address] [place] [address] PCP - General Family Medicine 11/16/11 Dee Gil, KARLOS [address] [facility] [place] [address] Registered Dietitian Nutrition 08/20/22 John England MD [address] [place] [address] Physician Hematology/Oncology 08/21/22 Maryam Hodgson, WATER RESOURCE ENGINEER.[address] [place] [address] Nurse Practitioner Hematology/Oncology 08/21/22 Rafael Meng, RN [address] [place] [address] [place] [address] Specialty Municipal Firefighter Hematology/Oncology 08/21/22 Yordan Feliz MD [address] [place] [address] [place] [address] Physician Radiation Oncology 08/21/22 Marysol Purvis LSW Tax Agent 09/07/22 Box Order Person Relationship Specialty Start Date End Date Mannie Nelson MD [address] [place] [address] PCP - General Family Medicine 11/16/11 Dee Gil, KARLOS [address] [place] [address] Registered Dietitian Nutrition 08/20/22 John England MD [address] [place] [address] Physician Hematology/Oncology 08/21/22 Maryam Hodgson, WATER RESOURCE ENGINEER.[address] [place] [address] Nurse Practitioner Hematology/Oncology 08/21/22 Rafael Meng, [place] [address] [place] [address] [place] [address] Specialty Municipal Firefighter Hematology/Oncology 08/21/22 Yordan Feliz MD [address] [place] [address] [place] [address] Physician Radiation Oncology 08/21/22 Marysol Pruvis LSW Tax Agent 09/07/22 Box Order Person Relationship Specialty Start Date End Date Mannie Nelson MD [address] [place] [address] PCP - General Family Medicine 11/16/11 Dee Gil, KARLOS [address] [place] [address] Registered Dietitian Nutrition 08/20/22 John England MD [address] [place] [address] Physician Hematology/Oncology 08/21/22 Maryam Hodgson, WATER RESOURCE ENGINEER.[facility] [address] [place] [address] Nurse Practitioner Hematology/Oncology 08/21/22 Rafael Meng, [place] [address] [place] [place] [address] Specialty Municipal Firefighter Hematology/Oncology 08/21/22 Yordan Feliz MD [address] [place] [address] Physician Radiation Oncology 08/21/22 Marysol Purvis LSW Tax Agent 09/07/22 Box Order Person Relationship Specialty Start Date End Date Mannie Nelson MD [address] [place] [address] PCP - General Family Medicine 11/16/[address] [place] [address] Registered Dietitian Nutrition 08/20/22 John England MD [address] [place] [address] Physician Hematology/Oncology 08/21/22 Maryam Hodgson, WATER RESOURCE ENGINEER.YARD LOADER OPERATOR [address] [place] [address] Nurse Practitioner Hematology/Oncology 08/21/22 Rafael Meng, RN [address] [place] [address] Specialty Municipal Firefighter Hematology/Oncology 08/21/22 Yordan Feliz MD [address] [place] [address] Physician Radiation Oncology 08/21/22 Marysol Purvis LSW Tax Agent 09/07/22 Box Order Person Relationship Specialty Start Date End Date Mannie Nelson MD [address] [place] [address] PCP - General Family Medicine 11/16/11 Dee Gil, KARLOS [address] [place] [address] Registered Dietitian Nutrition 08/20/22 John England MD [address] [place] [address] Physician Hematology/Oncology 08/21/22 Maryam Hodgson, WATER RESOURCE ENGINEER.YARD LOADER OPERATOR [address] [place] [address] Nurse Practitioner Hematology/Oncology 08/21/22 Rafael Meng, [place] [address] [place] [address] Specialty Municipal Firefighter Hematology/Oncology 08/21/22 Yordan Feliz MD [address] [place] [address] Physician Radiation Oncology 08/21/22 Marysol Purvis LSW Tax Agent 09/07/22 Box Order Person Relationship Specialty Start Date End Date Mannie Nelson MD [address] [place] [address] PCP - General Family Medicine 11/16/11 Dee Gil, RD [address] [place] [address] Registered Dietitian Nutrition 08/20/22 John England MD [address] [place] [address] Physician Hematology/Oncology 08/21/22 Maryam Hodgson, WATER RESOURCE ENGINEER.YARD LOADER OPERATOR [address] [place] [address] Nurse Practitioner Hematology/Oncology 08/21/22 Rafael Meng, [place] [address] [place] [address] Specialty Municipal Firefighter Hematology/Oncology 08/21/22 Yordan Feliz MD [address] [place] [address] Physician Radiation Oncology 08/21/22 Marysol Purvis LSW Tax Agent 09/07/22 Box Order Person Relationship Specialty Start Date End Date Mannie Nelson MD [address] [place] [place] [address] PCP - General Family Medicine 11/16/11 Dee Gil, KARLOS [address] [place] [address] Registered Dietitian Nutrition 08/20/22 John England MD [address] [place] [address] Physician Hematology/Oncology 08/21/22 Maryam Hodgson, WATER RESOURCE ENGINEER.YARD LOADER OPERATOR [address] [place] [address] Nurse Practitioner Hematology/Oncology 08/21/22 Rafael Meng, [place] [address] [facility] [place], [place] [address] Specialty Municipal Firefighter Hematology/Oncology 08/21/22 Yordan Feliz MD [address] [place] [address] Physician Radiation Oncology 08/21/22 Marysol Purvis LSW Tax Agent 09/07/22 Box Order Person Relationship Specialty Start Date End Date Mannie Nelson MD [address] [place] [address] PCP - General Family Medicine 11/16/11 Dee Gil, KARLOS [address] [place] [address] Registered Dietitian Nutrition 08/20/22 John England MD [address] [place] [address] Physician Hematology/Oncology 08/21/22 Maryam Hodgson, WATER RESOURCE ENGINEER.[facility] [address] [place] [place] [address] Nurse Practitioner Hematology/Oncology 08/21/22 Rafael Meng, [place] [address] [place] [address] Specialty Municipal Firefighter Hematology/Oncology 08/21/22 Yordan Feliz MD [address] [place] [address] Physician Radiation Oncology 08/21/22 Marysol Purvis LSW Tax Agent 09/07/22 Box Order Person Relationship Specialty Start Date End Date Mannie Nelson MD [address] [place] [address] PCP - General Family Medicine 11/16/11 Dee Gil, KARLOS [address] [place] [address] Registered Dietitian Nutrition 08/20/22 John England MD [address] [place] [address] Physician Hematology/Oncology 08/21/22 Maryam Hodgson, WATER RESOURCE ENGINEER.YARD LOADER OPERATOR [address] [place] [address] Nurse Practitioner Hematology/Oncology 08/21/22 Rafael Meng, RN [address] [place] [address] Specialty Municipal Firefighter Hematology/Oncology 08/21/22 Yordan Feliz MD [address] [place] [address] Physician Radiation Oncology 08/21/22 Marysol Purvis LSW Tax Agent 09/07/22 Box Order Person Relationship Specialty Start Date End Date Mannie Nelson MD [address] [place] [address] PCP - General Family Medicine 11/16/11 Dee Gil, KARLOS [address] [place] [address] Registered Dietitian Nutrition 08/20/22 John England MD [address] [place] [address] Physician Hematology/Oncology 08/21/22 Maryam Hodgson, WATER RESOURCE ENGINEER.YARD LOADER OPERATOR [address] [place] [address] Nurse Practitioner Hematology/Oncology 08/21/22 Rafael Meng, RN [address] [place] [address] Specialty Municipal Firefighter Hematology/Oncology 08/21/22 Yordan Feliz MD [address] [place] [address] Physician Radiation Oncology 08/21/22 Marysol Purvis LSW Tax Agent 09/07/22 Box Order Person Relationship Specialty Start Date End Date Mannie Nelson MD [address] [place] [address] PCP - General Family Medicine 11/16/[address] [place] [address] Registered Dietitian Nutrition 08/20/22 John England MD [address] [place] [address] [place] [address] Physician Hematology/Oncology 08/21/22 Maryam Hodgson, WATER RESOURCE ENGINEER.YARD LOADER OPERATOR [address] [place] [address] Nurse Practitioner Hematology/Oncology 08/21/22 Rafael Meng, [place] [address] [place] [address] [place] [address] Specialty Municipal Firefighter Hematology/Oncology 08/21/22 Yordan Feliz MD [address] [place] [address] Physician Radiation Oncology 08/21/22 Marysol Purvis LSW Tax Agent 09/07/22 Box Order Person Relationship Specialty Start Date End Date Mannie Nelson MD [address] [place] [address] PCP - General Family Medicine 11/16/[address] [facility] [address] [place], [place] [address] Registered Dietitian Nutrition 08/20/22 John England MD [address] [place] [address] Physician Hematology/Oncology 08/21/22 Maryam Hodgson, WATER RESOURCE ENGINEER.YARD LOADER OPERATOR [address] [place] [address] Nurse Practitioner Hematology/Oncology 08/21/22 Rafael Meng, RN [address] [place] [address] Specialty Municipal Firefighter Hematology/Oncology 08/21/22 Yordan Feliz MD [address] [place] [address] Physician Radiation Oncology 08/21/22 Marysol Purvis LSW Tax Agent 09/07/22 Box Order Person Relationship Specialty Start Date End Date Mannie Nelson MD [address] [place] [address] PCP - General Family Medicine 11/16/11 Dee Gil, KARLOS [address] [place] [address] Registered Dietitian Nutrition 08/20/22 John England MD [address] [place] [address] Physician Hematology/Oncology 08/21/22 Maryam Hodgson, WATER RESOURCE ENGINEER.YARD LOADER OPERATOR [address] [place] [address] Nurse Practitioner Hematology/Oncology 08/21/22 Rafael Meng, RN [address] [place] [address] Specialty Municipal Firefighter Hematology/Oncology 08/21/22 Yordan Feliz MD [address] [place] [address] Physician Radiation Oncology 08/21/22 Marysol Purvis LSW Tax Agent 09/07/22 Box Order Person Relationship Specialty Start Date End Date Mannie Nelson MD [address] [place] [address] PCP - General Family Medicine 11/16/11 Dee Gil, KARLOS [address] [place] [address] Registered Dietitian Nutrition 08/20/22 John England MD [address] [place] [address] Physician Hematology/Oncology 08/21/22 Maryam Hodgson, WATER RESOURCE ENGINEER.YARD LOADER OPERATOR [address] [place] [address] Nurse Practitioner Hematology/Oncology 08/21/22 Rafael Meng, [place] [address] [place] [address] Specialty Municipal Firefighter Hematology/Oncology 08/21/22 Yordan Feliz MD [address] [place] [address] Physician Radiation Oncology 08/21/22 Marysol Purvis LSW Tax Agent 09/07/22 Box Order Person Relationship Specialty Start Date End Date Mannie Nelson MD [address] [place] [address] PCP - General Family Medicine 11/16/[address] [place] [address] Registered Dietitian Nutrition 08/20/22 John England MD [address] [place] [address] Physician Hematology/Oncology 08/21/22 Maryam Hodgson, WATER RESOURCE ENGINEER.[facility] [address] [place] [place] [address] Nurse Practitioner Hematology/Oncology 08/21/22 Rafael Meng, RN [address] [place] [address] Specialty Municipal Firefighter Hematology/Oncology 08/21/22 Yordan Feliz MD [address] [place] [address] Physician Radiation Oncology 08/21/22 Marysol Purvis LSW Tax Agent 09/07/22 Box Order Person Relationship Specialty Start Date End Date Mannie Nelson MD [address] [place] [address] PCP - General Family Medicine 11/16/11 Dee Tirado, KARLOS [address] [place] [address] Registered Dietitian Nutrition 08/20/22 John England MD [address] [place] [address] Physician Hematology/Oncology 08/21/22 Maryam Hodgson, WATER RESOURCE ENGINEER.[facility] [address] [place] [address] Nurse Practitioner Hematology/Oncology 08/21/22 Rafeal Meng, RN [address] [place] [address] Specialty Municipal Firefighter Hematology/Oncology 08/21/22 Yordan Feliz MD [address] [place] [address] Physician Radiation Oncology 08/21/22 Marysol Purvis LSW Tax Agent 09/07/22 Box Order Person Relationship Specialty Start Date End Date Mannie Nelson MD [address] [place] [address] PCP - General Family Medicine 11/16/[address] [place] [address] Registered Dietitian Nutrition 08/20/22 John England MD [address] [place] [address] Physician Hematology/Oncology 08/21/22 Maryam Hodgson APRN.YARD LOADER OPERATOR [address] [place] [address] Nurse Practitioner Hematology/Oncology 08/21/22 Rafael Meng, [place] [address] [place] [address] Specialty Municipal Firefighter Hematology/Oncology 08/21/22 Yordan Feliz MD [address] [place] [address] Physician Radiation Oncology 08/21/22 Marysol Purvis LSW Tax Agent 09/07/22 Box Order Person Relationship Specialty Start Date End Date Mannie Nelson MD [address] [place] [address] PCP - General Family Medicine 11/16/[address] [place] [address] Registered Dietitian Nutrition 08/20/22 John England MD [address] [place] [address] Physician Hematology/Oncology 08/21/22 Maryam Hodgson, WATER RESOURCE ENGINEER.YARD LOADER OPERATOR [address] [place] [address] Nurse Practitioner Hematology/Oncology 08/21/22 Rafael Meng, RN [address] [place] [address] Specialty Municipal Firefighter Hematology/Oncology 08/21/22 Yordan Feliz MD [address] [place] [address] Physician Radiation Oncology 08/21/22 Marysol Purvis LSW Tax Agent 09/07/22 Box Order Person Relationship Specialty Start Date End Date Shaikh Drake MD [address] [place] [address] PCP - General Primary Care 02/06/[address] [place] [address] [place] [address] Registered Dietitian Nutrition 08/20/22 John England MD [address] [place] [address] [place] [address] Physician Hematology/Oncology 08/21/22 Maryam Hodgson, WATER RESOURCE ENGINEER.YARD LOADER OPERATOR [address] [place] [address] [place] [address] Nurse Practitioner Hematology/Oncology 08/21/22 Rafael Meng, [place] [address] [place] [address] Specialty Municipal Firefighter Hematology/Oncology 08/21/22 Yordan Feliz MD [address] [place] [address] [place] [address] Physician Radiation Oncology 08/21/22 Marysol Puvris LSW Tax Agent 09/07/22 Box Order Person Relationship Specialty Start Date End Date Shaikh Drake MD [address] [place] [address] PCP - General Primary Care 02/06/[address] [place] [address] Registered Dietitian Nutrition 08/20/22 John England MD [address] [place] [address] Physician Hematology/Oncology 08/21/22 Maryam Hodgson APRN.YARD LOADER OPERATOR [address] [place] [address] Nurse Practitioner Hematology/Oncology 08/21/22 Rafael Meng, [place] [address] [place] [address] Specialty Municipal Firefighter Hematology/Oncology 08/21/22 Yordan Feliz MD [address] [place] [address] Physician Radiation Oncology 08/21/22 Marysol Purvis LSW Tax Agent 09/07/22 Box Order Person Relationship Specialty Start Date End Date Shaikh Drake MD [address] [place] [address] PCP - General Primary Care 02/06/[address] [place] [address] [place] [address] Registered Dietitian Nutrition 08/20/22 John England MD [address] [place] [address] [place] [address] Physician Hematology/Oncology 08/21/22 Maryam Hodgson, WATER RESOURCE ENGINEER.YARD LOADER OPERATOR [address] [place] [address] [place] [address] Nurse Practitioner Hematology/Oncology 08/21/22 Rafael Meng, [place] [address] [place] [address] Specialty Municipal Firefighter Hematology/Oncology 08/21/22 Yordan Feliz MD [address] [place] [address] [place] [address] Physician Radiation Oncology 08/21/22 Marysol Purvis LSW Tax Agent 09/07/22 Box Order Person Relationship Specialty Start Date End Date Shaikh Drake MD [address] [place] [address] PCP - General Primary Care 02/06/[address] [place] [address] [place] [address] Registered Dietitian Nutrition 08/20/22 John England MD [address] [place] [address] [place] [address] Physician Hematology/Oncology 08/21/22 Maryam Hodgson, WATER RESOURCE ENGINEER.YARD LOADER OPERATOR [address] [place] [address] Nurse Practitioner Hematology/Oncology 08/21/22 Rafael Meng, [place] [address] [facility] [place] [address] Specialty Municipal Firefighter Hematology/Oncology 08/21/22 Yordan Feliz MD [address] [place] [address] Physician Radiation Oncology 08/21/22 Marysol Purvis LSW Tax Agent 09/07/22 Box Order Person Relationship Specialty Start Date End Date Shaikh Drake MD [address] [place] [address] PCP - General Primary Care 02/06/[address] [place] [address] Registered Dietitian Nutrition 08/20/22 John England MD [address] [place] [address] Physician Hematology/Oncology 08/21/22 Maryam Hodgson APRN.YARD LOADER OPERATOR [address] [place] [address] Nurse Practitioner Hematology/Oncology 08/21/22 Rafael Meng, [place] [address] [facility] [facility] [place] [address] Specialty Municipal Firefighter Hematology/Oncology 08/21/22 Yordan Feliz MD [address] [place] [address] Physician Radiation Oncology 08/21/22 Marysol Purvis LSW Tax Agent 09/07/22 Box Order Person Relationship Specialty Start Date End Date Shaikh Drake MD [address] [place] [address] PCP - General Primary Care 02/06/[address] [facility] [place] [address] Registered Dietitian Nutrition 08/20/22 John England MD [address] [facility] [place] [address] Physician Hematology/Oncology 08/21/22 Maryam Hodgson APRN.YARD LOADER OPERATOR [address] [facility] [place] [address] Nurse Practitioner Hematology/Oncology 08/21/22 Rafael Meng, [place] [address] [facility] [place] [address] Specialty Municipal Firefighter Hematology/Oncology 08/21/22 Yordan Feliz MD [address] [place] [address] Physician Radiation Oncology 08/21/22 Marysol Purvis LSW Tax Agent 09/07/22 Box Order Person Relationship Specialty Start Date End Date Shaikh Drake MD [address] [place] [address] PCP - General Primary Care 02/06/[address] [facility] [place] [address] Registered Dietitian Nutrition 08/20/22 John England MD [address] [place] [address] [place] [address] Physician Hematology/Oncology 08/21/22 Maryam Hodgson, WATER RESOURCE ENGINEER.YARD LOADER OPERATOR [address] [place] [address] [place] [address] Nurse Practitioner Hematology/Oncology 08/21/22 Rafael Meng, [place] [address] [place] [address] Specialty Municipal Firefighter Hematology/Oncology 08/21/22 Yordan Feliz MD [address] [place] [address] [place] [address] Physician Radiation Oncology 08/21/22 Marysol Purvis LSW Tax Agent 09/07/22 Team Status: Active Member Role Status Dates Odell Schmidt DO Primary Care Provider Active Team Status: Inactive Member Role Status Dates Michelle Singh APRN Attending Provider Active Start: January 14, 2024 End: January 14, 2024 Odell Schmidt DO Primary Care Provider Active Start: January 14, 2024 End: January 14, 2024 Box Order Person Relationship Specialty Start Date End Date Shaikh Drake MD [address] [place] [address] PCP - General Primary Care 02/06/[address] [place] [address] [place] [address] Registered Dietitian Nutrition 08/20/22 John England MD [address] [place] [address] [place] [address] Physician Hematology/Oncology 08/21/22 Maryam Hodgson, WATER RESOURCE ENGINEER.YARD LOADER OPERATOR [address] [place] [address] Nurse Practitioner Hematology/Oncology 08/21/22 Rafael Meng, [place] [address] [place] [address] Specialty Municipal Firefighter Hematology/Oncology 08/21/22 Yordan Feliz MD [address] [place] [address] Physician Radiation Oncology 08/21/22 Marysol Purvis LSW Tax Agent 09/07/22 Box Order Person Relationship Specialty Start Date End Date Mannie Nelson MD [address] [place] [address] PCP - General Family Medicine 11/16/11 02/05/[address] [place] [address] Registered Dietitian Nutrition 08/20/22 John England MD [address] [place] [address] [place] [address] Physician Hematology/Oncology 08/21/22 Maryam Hodgson APRN.YARD LOADER OPERATOR [address] [place] [address] Nurse Practitioner Hematology/Oncology 08/21/22 Rafael Meng, [place] [address] [place] [address] Specialty Municipal Firefighter Hematology/Oncology 08/21/22 Yordan eFliz MD [address] [place] [address] Physician Radiation Oncology 08/21/22 Marysol Purvis LSW Tax Agent 09/07/22 Box Order Person Relationship Specialty Start Date End Date Mannie Nelson MD [address] [place] [address] PCP - General Family Medicine 11/16/11 02/05/[address] [place] [address] [place] [address] Registered Dietitian Nutrition 08/20/22 John England MD [address] [place] [address] [place] [address] Physician Hematology/Oncology 08/21/22 Maryam Hodgson APRN.YARD LOADER OPERATOR [address] [place] [address] [address] [place], [facility] [address] Nurse Practitioner Hematology/Oncology 08/21/22 Rafael Meng, [place] [address] [place] [address] [place] [address] Specialty Municipal Firefighter Hematology/Oncology 08/21/22 Yordan Feliz MD [address] [place] [address] [place] [address] Physician Radiation Oncology 08/21/22 Box Order Person Relationship Specialty Start Date End Date Mannie Nelson MD [address] [place] [facility] [place] [address] PCP - General Family Medicine 11/16/11 02/05/[address] [place] [address] [place] [address] Registered Dietitian Nutrition 08/20/22 John England MD [address] [place] [address] Physician Hematology/Oncology 08/21/22 Maryam Hodgson APRN.YARD LOADER OPERATOR [address] [place] [address] Nurse Practitioner Hematology/Oncology 08/21/22 Rafael Meng, [place] [address] [place] [address] Specialty Municipal Firefighter Hematology/Oncology 08/21/22 Yordan Feliz MD [address] [place] [address] Physician Radiation Oncology 08/21/22 Team Status: Inactive Member Role Status Dates Odell Schmidt DO Primary Care Provider Active Start: April 07, 2024 End: April 07, 2024 Michelle Singh APRN Attending Provider Active Start: April 07, 2024 End: April 07, 2024 (unrecognized sect ion and content) No Status Records FoundNo Status Records FoundNo Status Records FoundNo Status Records Found INFORMATION SOURCE (unrecogn ized section and content) DATE CREATED AUTHOR 07/31/2022 [facility] DATE CREATED AUTHOR AUTHOR'S ORGANIZ ATION 08/04/2022 [facility] DATE CREATED AUTHOR AUTHOR'S ORGANIZ ATION 11/07/2023 [facility] DATE CREATED AUTHOR AUTHOR'S ORGANIZ ATION 03/25/2024 [facility] EPIC Source Comments (unrecognize d section and content) In the event this informatio n is protected by the Federal Confidentiality of Alcohol and Drug Abuse Patient Records regulations: The Federal rules restrict any use of the information to criminally investigate or prosecute any alcohol or drug abuse patient.[facility] the event this information is protected by the Federal Confidentiality of Alcohol and Drug Abuse Patient Records regulations: The Federal rules restrict any use of the information to criminally investigate or prosecute any alcohol or drug abuse patient.[facility] the event this information is protected by the Federal Confidentiality of Alcohol and Drug Abuse Patient Records regulations: The Federal rules restrict any use of the information to criminally investigate or prosecute any alcohol or drug abuse patient.[facility] the event this information is protected by the Federal Confidentiality of Alcohol and Drug Abuse Patient Records regulations: The Federal rules restrict any use of the information to criminally investigate or prosecute any alcohol or drug abuse patient.[facility] the event this information is protected by the Federal Confidentiality of Alcohol and Drug Abuse Patient Records regulations: The Federal rules restrict any use of the information to criminally investigate or prosecute any alcohol or drug abuse patient.[facility] the event this information is protected by the Federal Confidentiality of Alcohol and Drug Abuse Patient Records regulations: The Federal rules restrict any use of the information to criminally investigate or prosecute any alcohol or drug abuse patient.[facility] the event this information is protected by the Federal Confidentiality of Alcohol and Drug Abuse Patient Records regulations: The Federal rules restrict any use of the information to criminally investigate or prosecute any alcohol or drug abuse patient.[facility] the event this information is protected by the Federal Confidentiality of Alcohol and Drug Abuse Patient Records regulations: The Federal rules restrict any use of the information to criminally investigate or prosecute any alcohol or drug abuse patient.[facility] the event this information is protected by the Federal Confidentiality of Alcohol and Drug Abuse Patient Records regulations: The Federal rules restrict any use of the information to criminally investigate or prosecute any alcohol or drug abuse patient.[facility]In the event this information is protected by the Federal Confidentiality of Alcohol and Drug Abuse Patient Records regulations: The Federal rules restrict any use of the information to criminally investigate or prosecute any alcohol or drug abuse patient.[facility]In the event this information is protected by the Federal Confidentiality of Alcohol and Drug Abuse Patient Records regulations: The Federal rules restrict any use of the information to criminally investigate or prosecute any alcohol or drug abuse patient.[facility] HospitalIn the event this information is protected by the Federal Confidentiality of Alcohol and Drug Abuse Patient Records regulations: The Federal rules restrict any use of the information to criminally investigate or prosecute any alcohol or drug abuse patient.[facility]In the event this information is protected by the Federal Confidentiality of Alcohol and Drug Abuse Patient Records regulations: The Federal rules restrict any use of the information to criminally investigate or prosecute any alcohol or drug abuse patient.[facility] HospitalIn the event this information is protected by the Federal Confidentiality of Alcohol and Drug Abuse Patient Records regulations: The Federal rules restrict any use of the information to criminally investigate or prosecute any alcohol or drug abuse patient.[facility] HospitalIn the event this information is protected by the Federal Confidentiality of Alcohol and Drug Abuse Patient Records regulations: The Federal rules restrict any use of the information to criminally investigate or prosecute any alcohol or drug abuse patient.[facility] HospitalIn the event this information is protected by the Federal Confidentiality of Alcohol and Drug Abuse Patient Records regulations: The Federal rules restrict any use of the information to criminally investigate or prosecute any alcohol or drug abuse patient.[facility] HospitalIn the event this information is protected by the Federal Confidentiality of Alcohol and Drug Abuse Patient Records regulations: The Federal rules restrict any use of the information to criminally investigate or prosecute any alcohol or drug abuse patient.[facility] HospitalIn the event this information is protected by the Federal Confidentiality of Alcohol and Drug Abuse Patient Records regulations: The Federal rules restrict any use of the information to criminally investigate or prosecute any alcohol or drug abuse patient.[facility] HospitalIn the event this information is protected by the Federal Confidentiality of Alcohol and Drug Abuse Patient Records regulations: The Federal rules restrict any use of the information to criminally investigate or prosecute any alcohol or drug abuse patient.[facility] HospitalIn the event this information is protected by the Federal Confidentiality of Alcohol and Drug Abuse Patient Records regulations: The Federal rules restrict any use of the information to criminally investigate or prosecute any alcohol or drug abuse patient.[facility] HospitalIn the event this information is protected by the Federal Confidentiality of Alcohol and Drug Abuse Patient Records regulations: The Federal rules restrict any use of the information to criminally investigate or prosecute any alcohol or drug abuse patient.[facility] HospitalIn the event this information is protected by the Federal Confidentiality of Alcohol and Drug Abuse Patient Records regulations: The Federal rules restrict any use of the information to criminally investigate or prosecute any alcohol or drug abuse patient.[facility] HospitalIn the event this information is protected by the Federal Confidentiality of Alcohol and Drug Abuse Patient Records regulations: The Federal rules restrict any use of the information to criminally investigate or prosecute any alcohol or drug abuse patient.[facility] HospitalIn the event this information is protected by the Federal Confidentiality of Alcohol and Drug Abuse Patient Records regulations: The Federal rules restrict any use of the information to criminally investigate or prosecute any alcohol or drug abuse patient.[facility] HospitalIn the event this information is protected by the Federal Confidentiality of Alcohol and Drug Abuse Patient Records regulations: The Federal rules restrict any use of the information to criminally investigate or prosecute any alcohol or drug abuse patient.[facility] HospitalIn the event this information is protected by the Federal Confidentiality of Alcohol and Drug Abuse Patient Records regulations: The Federal rules restrict any use of the information to criminally investigate or prosecute any alcohol or drug abuse patient.[facility] HospitalIn the event this information is protected by the Federal Confidentiality of Alcohol and Drug Abuse Patient Records regulations: The Federal rules restrict any use of the information to criminally investigate or prosecute any alcohol or drug abuse patient.[facility] HospitalIn the event this information is protected by the Federal Confidentiality of Alcohol and Drug Abuse Patient Records regulations: The Federal rules restrict any use of the information to criminally investigate or prosecute any alcohol or drug abuse patient.[facility] HospitalIn the event this information is protected by the Federal Confidentiality of Alcohol and Drug Abuse Patient Records regulations: The Federal rules restrict any use of the information to criminally investigate or prosecute any alcohol or drug abuse patient.[facility] HospitalIn the event this information is protected by the Federal Confidentiality of Alcohol and Drug Abuse Patient Records regulations: The Federal rules restrict any use of the information to criminally investigate or prosecute any alcohol or drug abuse patient.[facility] HospitalIn the event this information is protected by the Federal Confidentiality of Alcohol and Drug Abuse Patient Records regulations: The Federal rules restrict any use of the information to criminally investigate or prosecute any alcohol or drug abuse patient.[facility] HospitalIn the event this information is protected by the Federal Confidentiality of Alcohol and Drug Abuse Patient Records regulations: The Federal rules restrict any use of the information to criminally investigate or prosecute any alcohol or drug abuse patient.[facility] HospitalIn the event this information is protected by the Federal Confidentiality of Alcohol and Drug Abuse Patient Records regulations: The Federal rules restrict any use of the information to criminally investigate or prosecute any alcohol or drug abuse patient.[facility] HospitalIn the event this information is protected by the Federal Confidentiality of Alcohol and Drug Abuse Patient Records regulations: The Federal rules restrict any use of the information to criminally investigate or prosecute any alcohol or drug abuse patient.[facility] HospitalIn the event this information is protected by the Federal Confidentiality of Alcohol and Drug Abuse Patient Records regulations: The Federal rules restrict any use of the information to criminally investigate or prosecute any alcohol or drug abuse patient.[facility] HospitalIn the event this information is protected by the Federal Confidentiality of Alcohol and Drug Abuse Patient Records regulations: The Federal rules restrict any use of the information to criminally investigate or prosecute any alcohol or drug abuse patient.[facility] HospitalIn the event this information is protected by the Federal Confidentiality of Alcohol and Drug Abuse Patient Records regulations: The Federal rules restrict any use of the information to criminally investigate or prosecute any alcohol or drug abuse patient.[facility] HospitalIn the event this information is protected by the Federal Confidentiality of Alcohol and Drug Abuse Patient Records regulations: The Federal rules restrict any use of the information to criminally investigate or prosecute any alcohol or drug abuse patient.[facility] HospitalIn the event this information is protected by the Federal Confidentiality of Alcohol and Drug Abuse Patient Records regulations: The Federal rules restrict any use of the information to criminally investigate or prosecute any alcohol or drug abuse patient.[facility] HospitalIn the event this information is protected by the Federal Confidentiality of Alcohol and Drug Abuse Patient Records regulations: The Federal rules restrict any use of the information to criminally investigate or prosecute any alcohol or drug abuse patient.[facility] HospitalIn the event this information is protected by the Federal Confidentiality of Alcohol and Drug Abuse Patient Records regulations: The Federal rules restrict any use of the information to criminally investigate or prosecute any alcohol or drug abuse patient.[facility] HospitalIn the event this information is protected by the Federal Confidentiality of Alcohol and Drug Abuse Patient Records regulations: The Federal rules restrict any use of the information to criminally investigate or prosecute any alcohol or drug abuse patient.[facility] HospitalIn the event this information is protected by the Federal Confidentiality of Alcohol and Drug Abuse Patient Records regulations: The Federal rules restrict any use of the information to criminally investigate or prosecute any alcohol or drug abuse patient.[facility] HospitalIn the event this information is protected by the Federal Confidentiality of Alcohol and Drug Abuse Patient Records regulations: The Federal rules restrict any use of the information to criminally investigate or prosecute any alcohol or drug abuse patient.[facility] HospitalIn the event this information is protected by the Federal Confidentiality of Alcohol and Drug Abuse Patient Records regulations: The Federal rules restrict any use of the information to criminally investigate or prosecute any alcohol or drug abuse patient.[facility] HospitalIn the event this information is protected by the Federal Confidentiality of Alcohol and Drug Abuse Patient Records regulations: The Federal rules restrict any use of the information to criminally investigate or prosecute any alcohol or drug abuse patient.[facility] HospitalIn the event this information is protected by the Federal Confidentiality of Alcohol and Drug Abuse Patient Records regulations: The Federal rules restrict any use of the information to criminally investigate or prosecute any alcohol or drug abuse patient.[facility] HospitalIn the event this information is protected by the Federal Confidentiality of Alcohol and Drug Abuse Patient Records regulations: The Federal rules restrict any use of the information to criminally investigate or prosecute any alcohol or drug abuse patient.[facility] HospitalIn the event this information is protected by the Federal Confidentiality of Alcohol and Drug Abuse Patient Records regulations: The Federal rules restrict any use of the information to criminally investigate or prosecute any alcohol or drug abuse patient.[facility] HospitalIn the event this information is protected by the Federal Confidentiality of Alcohol and Drug Abuse Patient Records regulations: The Federal rules restrict any use of the information to criminally investigate or prosecute any alcohol or drug abuse patient.[facility] HospitalIn the event this information is protected by the Federal Confidentiality of Alcohol and Drug Abuse Patient Records regulations: The Federal rules restrict any use of the information to criminally investigate or prosecute any alcohol or drug abuse patient.[facility] HospitalIn the event this information is protected by the Federal Confidentiality of Alcohol and Drug Abuse Patient Records regulations: The Federal rules restrict any use of the information to criminally investigate or prosecute any alcohol or drug abuse patient.[facility] HospitalIn the event this information is protected by the Federal Confidentiality of Alcohol and Drug Abuse Patient Records regulations: The Federal rules restrict any use of the information to criminally investigate or prosecute any alcohol or drug abuse patient.[facility] HospitalIn the event this information is protected by the Federal Confidentiality of Alcohol and Drug Abuse Patient Records regulations: The Federal rules restrict any use of the information to criminally investigate or prosecute any alcohol or drug abuse patient.[facility] HospitalIn the event this information is protected by the Federal Confidentiality of Alcohol and Drug Abuse Patient Records regulations: The Federal rules restrict any use of the information to criminally investigate or prosecute any alcohol or drug abuse patient.[facility] HospitalIn the event this information is protected by the Federal Confidentiality of Alcohol and Drug Abuse Patient Records regulations: The Federal rules restrict any use of the information to criminally investigate or prosecute any alcohol or drug abuse patient.[facility] HospitalIn the event this information is protected by the Federal Confidentiality of Alcohol and Drug Abuse Patient Records regulations: The Federal rules restrict any use of the information to criminally investigate or prosecute any alcohol or drug abuse patient.[facility] HospitalIn the event this information is protected by the Federal Confidentiality of Alcohol and Drug Abuse Patient Records regulations: The Federal rules restrict any use of the information to criminally investigate or prosecute any alcohol or drug abuse patient.[facility] Reason for Visit (unrecogniz ed section and content) Reason Comments Radiology CT Specialty Diagnoses / Procedures Referred By Contcharli t Referred To Contact MOLECULAR & FUNCTIONAL IMAGING Diagnoses Tongue cancer (HCC) Head and neck cancer (HCC) Procedures NM PET/CT SKULL-THIGH INITIAL PET IMAGING CT ATTENUATION SKULL BASE MID-THIGH Yordan Feliz MD [address] [place] [address] [place] [address] Molecular & Functional Imaging [address] [place] [address] Referral ID Status Reason Start Date Expiration Date V isits Requested Visits Authorized [id number] Closed Auto-Generate d Referral 08/14/2022 09/13/2023 1 1 Reason Comments Patient Education Reason Comments Consult Specialty Diagnoses / Procedures Referred By Contac t Referred To Contact Radiation Oncology / RADIATION ONCOLOGY Diagnoses Dr. 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 Images requested. 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) John England MD [address] [place] [address] [place] [address] Sebastien Treat Jose [address] [place] [address] Referral ID Status Reason Start Date Expiration Date V isits Requested Visits Authorized [id number] Authorized 08/21/2022 11/19/2022 99 99 Reason Comments [...] Cancer Specialty Diagnoses / Procedures [facility] Contact Radiation Oncology / RADIATION ONCOLOGY Diagnoses 4 Week Follow Up Patient wanted to coordinate appt with Med Onc Procedures EST POST 90 DAY RAD TX Yordan Feliz MD [address] [place] [address] [place] [address] Yordan Feliz MD [address] [place] [address] [place] [address] Referral ID Status Reason Start Date Expiration Date V isits Requested Visits Authorized [id number] Authorized 11/27/2022 07/07/2023 99 99 Reason Comments Cancer of the base of tongue Reason Comments Head and Neck Cancer Reason Comments Cancer of the base of tongue 1 month fol low up Reason Comments Care Coordination Results Reason Comments 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) Reason Comments Radiology CT Specialty Diagnoses / Procedures [facility] Diagnoses Lung nodules 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) Procedures CT CHEST W IVCON DIAGNOSTIC COMPUTED TOMOGRAPHY THORAX W/CONTRAST John England MD [address] [place] [address] [place] [address] [place] [address] Referral ID Status Reason Start Date Expiration Date V isits Requested Visits Authorized [id number] Closed Auto-Generate d Referral 10/19/2023 07/18/2024 1 1 Specialty Diagnoses / Procedures [facility] IMAGING Diagnoses 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) Mass of right lung Procedures CT CHEST W IVCON DIAGNOSTIC COMPUTED TOMOGRAPHY THORAX W/CONTRAST John England MD [address] [place] [address] [place] [address] [place] [address] Referral ID Status Reason Start Date Expiration Date V isits Requested Visits Authorized [id number] Closed Auto-Generate d Referral 06/19/2023 04/18/2024 1 1 Specialty Diagnoses / Procedures Referred By Contac t Referred To Contact CT IMAGING Diagnoses Lung nodules Procedures CT CHEST W IVCON DIAGNOSTIC COMPUTED TOMOGRAPHY THORAX W/CONTRAST John England MD [address] [place] [address] [place] [address] [place] [address] Referral ID Status Reason Start Date Expiration Date V isits Requested Visits Authorized [id number] Closed Auto-Generate d Referral 03/13/2023 03/07/2024 1 1 Reason Comments Radiology NM Specialty Diagnoses / Procedures Referred By Contac t Referred To Contact MOLECULAR & FUNCTIONAL IMAGING Diagnoses 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 [employer] provides no warranty or guarantee of the accuracy or completeness of information in this document.
== END 2024-04-09 11:47 | disposition home or self-care (01) ==
PROVIDERS: Emergency Provider Emergency Medicine; PCP Internal Medicine
DX: B02.9 Zoster without complications (principal)
CPT/HCPCS: 99283

== ENCOUNTER 2024-10-13 09:43 | Outpatient (OUT) | payer MEDICARE, SELFPAY ==
--- OUTSIDE RECORDS SUMMARY | 2024-10-13 10:04 | XMS_ITS | CCD ---
Author Organization [facility] Care Team Providers Care Tank Builder Helper Name Role Phone MANNIE NELSON Primary Care Physician [phone] Renea PARTIDA Attending Unavailable NILL, Renea Loomis [...] Unavailable NELSON, DR MANNIE Pulido Admitting Unavailable NELOSN, DR MANNIE Pulido Consulting Unavailable NELSON, DR [...] DR CHAU Loomis Consulting Unavailable NILL, DR MEIRE Admitting Unavailable NELSON, DR MANNIE Pulido Primary Care Unavailable NILL, DR MEIER Attending Unavailable NILL, DR MEIER Consulting Unavailable ELIASSANDY Guerra Consulting Unavailable MASON NOGUEIRA Consulting Unavailable BE BAUMAN Consulting Unavailable Leslie WELCH, Mannie De La Cruz Primary Care Provider Louise EVERETT, Dee Unavailable Jacquelyn WELCH, John Unavailable Surinder WAGNERN.MILLWRIGHT HELPER, Maryam Unavailable Paulino RN, Rafael Unavailable Yordan Feliz MD Unavailable Marysol Martinez Unavailable Unavailable Candida RD, Dee Unavailable Vidal WELCH, [facility] Primary Care Provider Candida RD, Dee Unavailable Paulino RN, Rafael Unavailable Vidal WELCH, [facility] Primary Care Provider Mannie Nelson MD Primary Care Provider [phone] Unallocatkira WELCH, Tamanna Provider Primary Care Provi vidhya Alex OLIVAS MD, Daniel B Primary Care Provider [facility], [facility] Primary Care Unavailable ABHYANKAR, JOHN Attending Unavailable MARYAM HODGSON Referring Unavailable [facility], [facility] Primary Care Unavailable ABHYANKAR, JOHN Referring Unavailable [facility], [facility] Primary Care Unavailable MARYAM HODGSON Referring Unavailable ABHYANKAR, JOHN Attending Unavailable [facility] Primary Care Unavailable ABHYANKAR, JOHN Referring Unavailable [facility], [facility] Primary Care Unavailable [facility], [facility] Primary Care Unavailable MASON JOHNSON II Primary Care Unavailable ABHYANKAR, JOHN Referring Unavailable COLBYAR, JOHN Attending Unavailable MASON JOHNSON II Primary Care Unavailable Yordan FELIZ Attending Unavailable ABHYANKAR, JOHN Referring Unavailable [facility], [facility] Primary Care Unavailable [facility], [facility] Primary Care Unavailable Yordan FELIZ Attending Unavailable Mason Johnson MD Primary Care Provider Vidal WELCH, [facility] Primary Care Provider Mason Johnson MD Unavailable [phone] MASON JOHNSON Attending Unavailable BARRY STEVENS Attending Unavailable MASON JOHNSON Referring Unavailable SERENE MORALES Attending Unavailable TIMMIS, SERENE H Attending Unavailable SHAIKH DRAKE Referring Unavailable VIDAL, Attending Unavailable TIMMIS, SERENE H Attending Unavailable VIDAL, Attending Unavailable TIMMIS, SERENE H Attending Unavailable TIMMIS, SERENE H Attending Unavailable TIMMIS, SERENE H Attending Unavailable TIMMIS, SERENE H Attending Unavailable MASON JOHNSON Attending Unavailable TIMMIS, SERENE H Attending Unavailable BARRY STEVENS Attending Unavailable TIMMIS, SERENE H Attending Unavailable TIMMIS, SERENE H Attending Unavailable Allergies Allergy Classification Reported Allergen(s) Allergy Type Date of Onset Reaction(s) Facility (1 source) No Known Medication Allergies; Translations: [No Known Medication Allergies] Propensity to adverse reactions (disorder) [facility] Repository (20 sources) HMG-CoA reductase inhibitor Propensity to adverse reactions 3 GI intolerance [facility] Work Phone: Medications Current Medications Medication Drug Class(es) Dates [...] oral tablet (5 sources) Cephalosporin Antibacterial Start: 10-02-19 23 End: 10-12-19 23 take 1 tablet by mouth twice daily cefUROXime (CEFTIN) 500 mg tablet Take 1 tablet by mouth twice daily for 10 days. 20 tablet 0 10/01/2022 10/11/2022 Active Comment on above: Take 1 tablet by mk th twice daily for 10 days. cholecalciferol 1.25 mg oral capsule (20 sources) Vitamin D Start: 10-01-19 24 take 1 capsule by mouth every week cholecalciferol, Vitamin D3, (VITAMIN D3) 1,250 mcg (50,000 unit) cap capsule Take 1 capsule by mouth one time a week. 10/01/2023 Active take 1 tablet by mouth once rachael y cholecalciferol (Vitamin D-3) 25 MCG (1000 UT) tablet Take 25 mcg by mouth 1 (one) time each day at the same time. Active Comment on above: Take 1 capsule by mo ut one time a week. ergocalciferol 1.25 mg oral capsule (20 sources) Provitamin D2 Compound Start: 04-18-20 take 1 capsule by mouth every week ergocalciferol 50,000 unit capsule (VITAMIN D2, DRISDOL) TAKE 1 CAPSULE BY MOUTH WEEKLY 07/05/2022 Active Comment on above: TAKE 1 CAPSULE BY MO UT WEEKLY fenofibrate 134 mg oral capsule (20 sources) Peroxisome Proliferator Receptor alpha Agonist Start: 04-07-20 Fenofibrate Micronized Active MG PO April 07, 2024 12:00am Start: 03-02-2016 take 1 capsule by mo ut once daily fenofibrate micronized (Lofibra) 134 MG capsule Indications: Hyperlipidemia, unspecified hyperlipidemia type (CMS/HCC) Take 1 capsule (134 mg) by mouth Daily 90 capsule 1 12/16/2023 Active Comment on above: Take 134 mg by mouth once daily. latanoprost 0.05 mg/ml ophthalmic solution (20 sources) Prostaglandin Analog Start: take 1 drop(s) into the eye(s) at bedtime latanoprost (XALATAN) 0.005 % ophthalmic solution instill 1 (ONE) DROP IN BOTH EYES AT BEDTIME 05/01/2023 Active take 1 drop(s) into the eye(s) once daily latanoprost (Xalatan) 0.005 % ophthalmic solution Administer 1 drop into both eyes Daily Active Comment on above: instill 1 (ONE) DROP IN BOTH EYES AT BEDTIME metFORMIN hydrochloride 500 mg oral tablet (20 sources) Biguanide Start: 08-21-2024 End: 02-17-2025 take 1 tablet by mouth once daily metFORMIN (Glucophage) 500 MG tablet Indications: Type 2 diabetes mellitus without complication, without long-term current use of insulin Take 1 tablet (500 mg) by mouth Daily 90 tablet 1 08/21/2024 02/17/2025 Active Start: 06-12-2022 End: 06-13-2024 take 1 tablet by mouth once daily metFORMIN (Glucophage) 500 MG tablet Indications: Type 2 diabetes mellitus without complication, without long-term current use of insulin (CMS/HCC) Take 1 tablet (500 mg) by mouth Daily 90 tablet 1 12/16/2023 Active Start: 06-12-2022 take 2 tablets by [...] oral tablet (20 sources) beta-Adrenergic Jose Start: 04-07-2024 Metoprolol Succinate Active MG PO April 07, 2024 12:00am Start: 06-12-2022 End: 05-18-2024 take 1 tablet by mouth once daily metoprolol succinate XL (Toprol-XL) 25 MG 24 hr tablet Indications: Primary hypertension (CMS/HCC) TAKE 1 TABLET BY MOUTH DAILY at the same time each day 90 tablet 1 05/18/2024 Active Start: 04-18-2020 take 1 tablet by mk th once daily Metoprolol succinate 25 mg ER Tablet 1 tab, Oral, Daily, Refills(s) 0 Start Date: 04/18/20 Status: Ordered Comment on above: Take 25 mg by mouth once daily. tiZANidine 4 mg oral tablet (6 sources) Central alpha-2 Adrenergic Agonist Start: take 1 tablet by mouth in the morning tiZANidine (Zanaflex) 4 MG tablet Indications: Torticollis Take 1 tablet (4 mg) by mouth in the morning and 1 tablet (4 mg) before bedtime. 60 tablet 3 08/31/2024 Active Completed/Discontinued Medications Medication Drug Class(es) Dates Sig [...] 1 tablet by mk twice daily for 14 days. 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 1 Each 05/06/2024 05/07/2024 Start: 10-23-2023 End: 10-24-2023 iv contrast (will be provide d with [...] in the CT contrast administration guidelines link. Magnesium (17 sources) End: 05-19-2024 Magnesium 400 MG capsule Take by mouth 05/19/2024 Discontinued (Therapy completed) Magnesium 400 MG capsule Take by mouth Active ondansetron 8 mg oral tablet (20 sources) [...] Classification Problem Date Documented Da te Episodic/Chronic Administrative/social admission (4 sources) Patient encounter status; Translations: [Other specified counseling] 08-31-2024 Episodic Calculus of urinary tract (1 source) Personal history of urinary calculi; Translations: [PERSONAL HISTORY OF URINARY CALCULI] Onset: 3 Episodic Cancer of colon (20 sources) Malignant tumor of colon; Translations: [Malignant neoplasm of colon, unspecified] Onset: 3 Resolved: 5 11-19-2012 Chronic Cancer of head and neck (20 sources) Malignant neoplasm of base of tongue; Translations: [Malignant tumor of tongue] Onset: 3 Chronic Chronic kidney disease (20 sources) Chronic kidney disease stage 3; Translations: [Stage 3 chronic kidney disease, unspecified whether stage 3a or 3b CKD (HCC)] Onset: 3 Chronic Coronary atherosclerosis and other heart disease (20 sources) History of myocardial infarction; Translations: [Atherosclerotic heart disease of [place] coronary artery without angina pectoris] Onset: 3 04-18-2020 Chronic Diabetes mellitus without complication (20 sources) Type 2 diabetes mellitus; Translations: [Type 2 diabetes mellitus without complications] Onset: 2 Resolved: 5 04-18-2020 Chronic Diseases of white blood cells (20 sources) 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; Translations: [Agranulocytosis secondary to cancer chemotherapy] Onset: 3 Resolved: 4 Chronic Disorders of lipid metabolism (20 sources) Hypercholesterolemia; Translations: [Pure hypercholesterolemia, unspecified] Onset: 3 Resolved: 3 04-18-2020 Chronic Esophageal disorders (20 sources) Gastroesophageal reflux disease; Translations: [Gastro-esophageal reflux disease without esophagitis] Onset: 3 04-18-2020 Chronic Essential hypertension (20 sources) Hypertensive disorder; Translations: [Essential (primary) hypertension] Onset: 3 04-18-2020 Chronic Hepatitis (20 sources) Nonalcoholic steatohepatitis; Translations: [Nonalcoholic steatohepatitis (OJEDA)] Onset: 3 06-13-2022 Chronic Immunizations and screening for infectious disease (1 source) Vaccination needed; Translations: [Encounter for immunization] 07-15-2024 Episodic Other aftercare (1 source) power electronics engineer (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 of anticoagulants; Translations: [DIRECTOR OF PHYSICAL EDUCATION CURRNT USE ANTICOAGULANTS] Onset: 3 Episodic Other aftercare (1 source) power electronics engineer (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 of oral hypoglycemic drugs; Translations: [LONG-TERM USE ORAL HYPOGLYCEMIC DX] Onset: 3 Episodic Other aftercare (1 source) residential (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 of aspirin; Translations: [DIRECTOR OF PHYSICAL EDUCATION CURRENT USE OF ASPIRIN] Onset: 3 Episodic [...] OF DESCENDING COLON] Onset: 3 Episodic Other gastrointestinal disorders (1 source) Dysphagia, unspecified; Translations: [DYSPHAGIA UNSPECIFIED] Onset: 3 Episodic Other liver diseases (1 source) Fatty (change of) liver, not elsewhere classified; Translations: [FATTY CHANGE LIVER NEC] Onset: 2 Chronic Other lower respiratory disease (3 sources) Lung mass; Translations: [Other nonspecific abnormal finding of lung field] 02-06-2023 Episodic Other lower respiratory disease (6 sources) Multiple nodules of lung; Translations: [Other nonspecific abnormal finding of lung field] 02-06-2023 Episodic Other lower respiratory disease (1 source) Nodule of lung; Translations: [Solitary pulmonary nodule] 02-11-2023 Episodic Other nutritional; endocrine; and metabolic disorders (2 sources) Overweight in adulthood with body mass index of 25 or more but less than 30 06-13-2022 Episodic Other screening for suspected conditions (not mental disorders or infectious disease) (1 source) Abnormal findings on diagnostic imaging of other specified body structures; Translations: [ABNORML FIND DX IMG OTH BODY STRUC] Onset: 3 Chronic Other skin disorders (4 sources) Seborrheic keratosis; Translations: [Other seborrheic keratosis] 05-26-2024 Episodic Other skin disorders (8 sources) Actinic keratosis; Translations: [Actinic keratosis] 05-26-2024 Episodic Other skin disorders (2 sources) Inflamed seborrheic keratosis; Translations: [Inflamed seborrheic keratosis] 09-17-2024 Episodic Other upper respiratory disease (1 source) Unspecified voice and resonance disorder; Translations: [UNS VOICE AND RESONANCE DISORDER] Onset: 3 Episodic Peripheral and visceral atherosclerosis (2 sources) Arteriosclerotic vascular disease 04-18-2020 Chronic Secondary malignancies (20 sources) Secondary malignant neoplasm of lymph nodes of neck; Translations: [Secondary and unspecified malignant neoplasm of lymph nodes of head, face and neck] Onset: 3 12-15-2022 Chronic Secondary malignancies (2 sources) Metastasis to head and neck lymph node; Translations: [Secondary and unspecified malignant neoplasm of lymph nodes of head, face and neck] 08-31-2024 Chronic Spondylosis; intervertebral disc disorders; other back problems (2 sources) Torticollis; Translations: [Torticollis] 08-31-2024 Episodic Thyroid disorders (5 sources) Iodine-deficiency related diffuse (endemic) goiter; Translations: [IODINE-DEFIC REL DIFFUSE GOITER] Onset: 2 Chronic Thyroid disorders (1 source) Disorder of thyroid gland; Translations: [Other specified disorders of thyroid] 05-08-2023 Episodic Unclassified (1 source) CONTACT W/AND (SUSP) EXPOS COVID-19; Translations: [CONTACT W/AND (SUSP) EXPOS COVID-19] Onset: 3 Past or Other Problems Problem Classification Problem Date Documented Da te Episodic/Chronic Cancer of colon (20 sources) History of malignant neoplasm of colon; Translations: [Personal history of other malignant neoplasm of large intestine] Onset: 06-13-2022 Resolved: 01-15-2023 Episodic Mood disorders (20 sources) Mood disorders Onset: 06-10-2023 06-10-2023 Nutritional deficiencies (20 sources) Vitamin D deficiency; Translations: [Vitamin D deficiency, unspecified] Onset: 01-15-2023 Resolved: 01-15-2023 04-18-2020 Chronic Other and unspecified benign neoplasm (20 sources) History of polyp of colon; Translations: [Personal history of colonic polyps] Onset: 06-13-2022 Resolved: 01-15-2023 Episodic Other circulatory disease (20 sources) Raynaud's disease; Translations: [Raynaud's syndrome without gangrene] Onset: 01-15-2023 Resolved: 01-15-2023 04-18-2020 Chronic Other connective tissue disease (20 sources) Diastasis recti; Translations: [Separation of muscle (nontraumatic), other site] Onset: 01-15-2023 Resolved: 01-15-2023 04-20-2020 Episodic Other connective tissue disease (20 sources) Muscle spasm of cervical muscle of neck; Translations: [Other muscle spasm] Onset: 11-20-2023 11-20-2023 Episodic Other lower respiratory disease (2 sources) Other nonspecific abnormal finding of lung field; Translations: [Lung nodules] Onset: 06-12-2023 Episodic Other male genital disorders (20 sources) Disorder of prostate; Translations: [Disorder of prostate, unspecified] Onset: 01-15-2023 Resolved: 01-15-2023 04-18-2020 Episodic Other male genital disorders (1 source) Disorder of prostate, unspecified; Translations: [DISORDER OF PROSTATE UNSPECIFIED] Onset: 03-01-2022 Episodic Other non-epithelial cancer of skin (20 sources) Basal cell carcinoma of face; Translations: [Basal cell carcinoma of skin of unspecified parts of face] Onset: 12-15-2022 Resolved: 12-15-2022 12-15-2022 Episodic Other non-traumatic joint disorders (20 sources) Pain in right shoulder; Translations: [Pain in joint, shoulder region] Onset: 12-15-2022 Resolved: 12-15-2022 12-15-2022 Episodic Other nutritional; endocrine; and metabolic disorders (20 sources) Disorder of carbohydrate metabolism; 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, unspecified] Onset: 01-15-2023 Resolved: 01-15-2023 04-18-2020 Chronic Other nutritional; endocrine; and metabolic disorders (20 sources) Overweight; Translations: [Overweight] Onset: 12-15-2022 Resolved: 12-15-2022 12-15-2022 Episodic Other skin disorders (20 sources) Lesion of face; Translations: [Disorder of the skin and subcutaneous tissue, unspecified] Onset: 01-21-2023 01-21-2023 Episodic Results Test Name Value Interpretation Reference Range Facility No Panel Informationon 09-17 [facility] PSA, TOTALon 09-02-2024 PSA, TOTAL 1.15 ng/mL Normal < OR = 4.00 [facility] Comment on above: Order Comment: FASTI NG:YES FASTING: YES Result Comment: The total PSA value from this assay system is standardized against the WHO standard. The test result will be approximately 20% lower when compared to the equimolar-standardized total PSA (Soy [place]). Comparison of serial PSA results should be interpreted with this fact in mind. This test was performed using the Siemens chemiluminescent method. Values obtained from different assay methods cannot be used interchangeably. PSA levels, regardless of value, should not be interpreted as absolute evidence of the presence or absence of disease. Performed By: #### 5 [id number] #### [facility] [address], [address] [place] [id number] Pediatric Nurse Practitioner: Maged Olson MD Laboratory - Hematology and Cell countson 08-31-2024 HbA1c (Bld) [Mass fraction] 6.9 % [facility] [employer] No Panel Informationon 08-31 [email or web address] No Panel Informationon 05-26 [facility] CNOVon 05-06-2024 CNOV Office Visit (RADTSA ) MANISH ROOT ([id number]) 1945 M Date Time Provider Department 05/06/24 3:00 PM Yordan FELIZ During your visit today, we recorded the following information about you: Temperature Pulse Respiration Blood pressure 97.8 degrees 60/minute 18/minute 122/73 Weight 86.7 kg Yordan Feliz MD 05/15/2024 1:56 PM Signed Radiation Oncology - Follow Up Note [...] fractions ELAPSED TIME: 49 days. INTERVAL HISTORY: Patient states he is doing fairly well. Denies any significant neck pain or dysphagia. LABORATORY: Hemoglobin (g/dL) Date Value 04/23/2024 13.3 Hematocrit (%) Date Value 04/23/2024 38.4 WBC (k/uL) Date Value 04/23/2024 3.46 Platelet Count (k/uL) Date Value 04/23/2024 206 Latest Reference Range AND Units 10/16/23 10:46 [...] Lymph 1.00 - 4.00 k/uL 0.48 (L) Carlton% % 10.4 Abs Carlton <0.87 k/uL 0.32 Eosin% % 1.6 Abs Eosin <0.46 k/uL 0.05 Baso% % 0.6 Abs Baso <0.11 k/uL <0.03 Immature Gran % % 0.6 IMMATURE GRANS (ABS) <0.10 k/uL <0.03 NRBC /100 WBC 0.0 Absolute nRBC <0.01 k/uL <0.01 (L): Data is abnormally low RADIOLOGY: CT neck 04/23/2024:IMPRESSION : 1. STABLE POSTTREATMENT CHANGES AT LEFT BASE OF TONGUE 2. NO NEW SUSPICIOUS SOFT TISSUE, EDEMA, ENHANCEMENT OR MASS EFFECT TO SUGGEST RECURRENCE 3. NO LYMPHADENOPATHY CT chest 04/23/2024: 1. No interval change since 10/16/23. 2. Mild patchy opacities in the left lung apex and punctate nodular opacity in the right lung, stable. CT Neck 10/16/23: IMPRESSION: Primary: NI-RADS 1. [...] goiter, pain or significant neck swelling RESPIRATORY: (more content not included)... Normal [facility] CNOVSPon 05-06-2024 CNOVSP Visit (SP) Office (HEMASA) MANISH ROOT ([id number]) 1945 M Date Time Provider Department 05/06/24 3:20 PM JOHN ENGLAND During your visit today, we recorded the following information about you: Temperature Pulse Respiration Blood pressure 97.8 degrees 60/minute 18/minute 122/73 Weight Height 86.7 kg 1.669 m John England MD 05/09/2024 10:42 AM Signed NAME: Manish Root [facility] NO.: [id number] DATE OF SERVICE: May 06, 2024 (Jacquelyn) Some elements in this clinic note that are critical to medical decision making have been carefully reviewed and included from a prior clinic note dated: October 23, 2023 (Jacquelyn) Referring Provider: Dr. Татьяна Feliz Additional Clinicians involved in Manish Yi Root's care: Serene Morales DIAGNOSIS: Base of Tongue squamous cell ca. ASSESSMENT: 78 year old man with base of tongue [...] and Chest in 6 months Labs same day RTC 1 week after to review - HPI: CASE HISTORY: Reverse Chronological Order 04/23/2024 - CT Neck AND Chest: Neck: Stable posttreatment changes at left base of tongue. No new suspicious soft tissue, edema, enhancement or mass effect to suggest recurrence. No lymphadenopathy Chest: No interval change since 10/16/23. Mild patchy opacities in the left lung apex and punctate nodular opacity in the right lung, stable. 10/16/2023 - CT Neck AND Chest: Neck: [...] Ca Stage 3 - 2/5 LN + [place] regimen on protocol Updated Visit, May 06, 2024: Manish returns with his Jahaira (she has a pinched nerve that has locked up her shoulder) His scans are negative. He's doing very well. Updated Visit, October 23, 2023: Manish returns [...] with prior resolution of abnormalities. Kidney function (more content not included)... Normal [facility] CBC W Auto Differential pane l (Bld)on 04-23-2024 Basophils (Bld) [#/Vol] 0.03 10*3/uL [facility] Differential cell count method Nom (Bld) Auto [facility] Eosinophils (Bld) [#/Vol] 0.06 10*3/uL [facility] Immature granulocytes (Bld) [#/Vol] [facility] Immature granulocytes/100 WBC (Bld) 0.6 % [facility] Lymphocytes (Bld) [#/Vol] 0.46 10*3/uL Low [facility] Monocytes (Bld) [#/Vol] 0.30 10*3/uL [facility] Neutrophils (Bld) [#/Vol] 2.59 10*3/uL [facility] Nucleated RBC (Bld) [#/Vol] [facility] Nucleated RBC/100 WBC (Bld) [Ratio] 0.0 % /100 WBC [facility] Platelet mean volume (Bld) [Entitic vol] 9.4 fL 9.0 - 12.7 fL [facility] Platelets (Bld) [#/Vol] 206 10*3/uL [facility] WBC (Bld) [#/Vol] 3.46 10*3/uL [facility] Basophils (Bld) [#/Vol] 0.03 10*3/uL Normal <0.11 [facility] Comment on above: Order Comment: Speci men Type: BLOOD SPECIMENOrdering Facility: [facility] Address: [address] [place] [address] Performed By: #### 5 7021-8 ####[facility] LABCLIA [id number] [place] [address] Basophils/100 WBC (Bld) 0.9 % Normal [facility] Comment on above: Order Comment: Speci men Type: BLOOD SPECIMENOrdering Facility: [facility] Address: [address] [place] [address] Performed By: #### 5 7021-8 ####[facility] LABCLIA [id number] [place] [address] Differential cell count method Nom (Bld) Auto Normal [facility] Comment on above: Order Comment: Speci men Type: BLOOD SPECIMENOrdering Facility: [facility] Address: [address] [place] [address] Performed By: #### 5 7021-8 ####[facility] LABCLIA [id number] [place] [address] Eosinophils (Bld) [#/Vol] 0.06 10*3/uL Normal <0.46 [facility] Comment on above: Order Comment: Speci men Type: BLOOD SPECIMENOrdering Facility: [facility] Address: [address] [place] [address] Performed By: #### 5 7021-8 ####[facility] LABCLIA [id number] [place] [address] Eosinophils/100 WBC (Bld) 1.7 % Normal [facility] Comment on above: Order Comment: Speci men Type: BLOOD SPECIMENOrdering Facility: [facility] Address: [address] [place] [address] Performed By: #### 5 7021-8 ####[facility] LABCLIA [id number] [place] [address] Erythrocyte distribution width (RBC) [Ratio] 14.4 % Normal 11.5-15.0 [facility] Comment on above: Order Comment: Speci men Type: BLOOD SPECIMENOrdering Facility: [facility] Address: [address] [place] [address] Performed By: #### 5 7021-8 ####[facility] LABCLIA [id number] [place] [address] Hematocrit (Bld) [Volume fraction] 38.4 % Low 39.0-51.0 [facility] Comment on above: Order Comment: Speci men Type: BLOOD SPECIMENOrdering Facility: [facility] Address: [address] [place] [address] Performed By: #### 5 7021-8 ####[facility] LABCLIA [id number] [place] [address] Hemoglobin (Bld) [Mass/Vol] 13.3 g/dL Normal 13.0-17.0 [facility] Comment on above: Order Comment: Speci men Type: BLOOD SPECIMENOrdering Facility: [facility] Address: [address] [place] [address] Performed By: #### 5 7021-8 ####[facility] LABCLIA [id number] [place] [address] Immature granulocytes (Bld) [#/Vol] 10*3/uL Normal <0.10 [facility] Comment on above: Order Comment: Speci men Type: BLOOD SPECIMENOrdering Facility: [facility] Address: [address] [place] [address] Performed By: #### 5 7021-8 ####[facility] LABCLIA [id number] [place] [address] Immature granulocytes/100 WBC (Bld) 0.6 % Normal [facility] Comment on above: Order Comment: Speci men Type: BLOOD SPECIMENOrdering Facility: [facility] Address: [address] [place] [address] Performed By: #### 5 7021-8 ####[facility] LABCLIA [id number] [place] [address] Lymphocytes (Bld) [#/Vol] 0.46 10*3/uL Low 1.00-4.00 [facility] Comment on above: Order Comment: Speci men Type: BLOOD SPECIMENOrdering Facility: [facility] Address: [address] [place] [address] Performed By: #### 5 7021-8 ####[facility] LABCLIA [id number] [place] [address] Lymphocytes/100 WBC (Bld) 13.3 % Normal [facility] Comment on above: Order Comment: Speci men Type: BLOOD SPECIMENOrdering Facility: [facility] Address: [address] [place] [address] Performed By: #### 5 7021-8 ####[facility] LABCLIA [id number] [place] [address] MCH (RBC) [Entitic mass] 31.9 pg Normal 26.0-34.0 [facility] Comment on above: Order Comment: Speci men Type: BLOOD SPECIMENOrdering Facility: [facility] Address: [address] [place] [address] Performed By: #### 5 7021-8 ####[facility] LABCLIA [id number] [place] [address] MCHC (RBC) [Mass/Vol] 34.6 g/dL Normal 30.5-36.0 [facility] Comment on above: Order Comment: Speci men Type: BLOOD SPECIMENOrdering Facility: [facility] Address: [address] [place] [address] Performed By: #### 5 7021-8 ####[facility] LABCLIA [id number] [place] [address] MCV (RBC) [Entitic vol] 92.1 fL Normal 80.0-100.0 [facility] Comment on above: Order Comment: Speci men Type: BLOOD SPECIMENOrdering Facility: [facility] Address: [address] [place] [address] Performed By: #### 5 7021-8 ####[facility] LABCLIA [id number] [place] [address] Monocytes (Bld) [#/Vol] 0.30 10*3/uL Normal <0.87 [facility] Comment on above: Order Comment: Speci men Type: BLOOD SPECIMENOrdering Facility: [facility] Address: [address] [place] [address] Performed By: #### 5 7021-8 ####[facility] LABCLIA [id number] [place] [address] Monocytes/100 WBC (Bld) 8.7 % Normal [facility] Comment on above: Order Comment: Speci men Type: BLOOD SPECIMENOrdering Facility: [facility] Address: [address] [place] [address] Performed By: #### 5 7021-8 ####[facility] LABCLIA [id number] [place] [address] Neutrophils (Bld) [#/Vol] 2.59 10*3/uL Normal 1.45-7.50 [facility] Comment on above: Order Comment: Speci men Type: BLOOD SPECIMENOrdering Facility: [facility] Address: [address] [place] [address] Performed By: #### 5 7021-8 ####[facility] LABCLIA [id number] [place] [address] Neutrophils/100 WBC (Bld) 74.8 % Normal [facility] Comment on above: Order Comment: Speci men Type: BLOOD SPECIMENOrdering Facility: [facility] Address: [address] [place] [address] Performed By: #### 5 7021-8 ####[facility] LABCLIA [id number] [place] [address] Nucleated RBC (Bld) [#/Vol] 10*3/uL Normal <0.01 [facility] Comment on above: Order Comment: Speci men Type: BLOOD SPECIMENOrdering Facility: [facility] Address: [address] [place] [address] Performed By: #### 5 7021-8 ####[facility] LABCLIA [id number] [place] [address] Nucleated RBC/100 WBC (Bld) [Ratio] 0.0 /100 WBC Normal [facility] Comment on above: Order Comment: Speci men Type: BLOOD SPECIMENOrdering Facility: [facility] Address: [address] [place] [address] Performed By: #### 5 7021-8 ####[facility] LABCLIA [id number] [place] [address] Platelet mean volume (Bld) [Entitic vol] 9.4 fL Normal 9.0-12.7 [facility] Comment on above: Order Comment: Speci men Type: BLOOD SPECIMENOrdering Facility: [facility] Address: [address] [place] [address] Performed By: #### 5 7021-8 ####[facility] LABCLIA [id number] [place] [address] Platelets (Bld) [#/Vol] 206 10*3/uL Normal 150-400 [facility] Comment on above: Order Comment: Speci men Type: BLOOD SPECIMENOrdering Facility: [facility] Address: [address] [place] [address] Performed By: #### 5 7021-8 ####[facility] LABCLIA [id number] [place] [address] RBC (Bld) [#/Vol] 4.17 10*6/uL Low 4.20-6.00 [facility] Comment on above: Order Comment: Speci men Type: BLOOD SPECIMENOrdering Facility: [facility] Address: [address] [place] [address] Performed By: #### 5 7021-8 ####[facility] LABIA [id number] [place] [address] WBC (Bld) [#/Vol] 3.46 10*3/uL Low 3.70-11.00 [facility] Comment on above: Order Comment: Speci men Type: BLOOD SPECIMENOrdering Facility: [facility] Address: [address] [place] [address] [place] [address] Performed By: #### 5 7021-8 ####[facility] LABCLIA [id number] [place] [address] [facility] CBC W AUTO DIFF BLDon [facility] BASOPHILS # BLD AUTO 0.03 [facility] DIFFERENTIAL METHOD BLD Auto [facility] EOSINOPHIL # BLD AUTO 0.06 [facility] LYMPHOCYTES # BLD AUTO 0.46 Low [facility] MONOCYTES # BLD AUTO 0.3 [facility] NEUTROPHILS # BLD AUTO 2.59 [facility] NRBC # BLD AUTO <0.01 [facility] NRBC/100 WBC BLD-RTO 0 /100 WBC [facility] PLATELET # BLD AUTO 206 [facility] PMV BLD AUTO 9.4 fL 9.0 - 12.7 fL [facility] WBC # BLD AUTO 3.46 Low [facility] IMM GRANULOCYTES # BLD AUTO <0.03 [facility] IMM GRANULOCYTES/LEUK NFR BLD AUTO 0.6 % [facility] Specimen Type: BLOOD SPECIMEN [facility] Address: [facility] [place] [address] Original Ordering Provider: JOHN HUIZAR CT CHEST W IVCONon CT CHEST W IVCON * * *Final Report* * * DATE OF EXAM: Apr 23 2024 9:58AM [facility] 0539 - CT CHEST W IVCON / PROCEDURE REASON: multiple diagnoses * * * * Physician Interpretation * * * * RESULT: EXAMINATION: CHEST CT WITH CONTRAST CLINICAL HISTORY: Base of tongue cancer Technique: Spiral CT acquisition of the chest from the thoracic inlet to the upper abdomen following IV contrast. MQ: CTCW_6 Contrast: 100 mL Omnipaque [address] Radiation dose: Integrated Dose-length product (DLP) for this visit = 950 mGy*cm CT Dose Reduction Employed: Automated exposure control (AEC) Comparison: 10/16/23 RESULT: Limitations: None. Lines, tubes, and devices: None. Lung parenchyma and airways: Mild patchy opacities in the left lung apex (5:32), stable. 2-3 mm nodular opacity along the right major fissure (5:24), stable. No new airspace opacities. The central airways are patent. Pleural space: No pleural effusion. No pleural thickening. Lower neck, lymph nodes, and mediastinum: The imaged thyroid gland is normal. No lymphadenopathy in the supraclavicular, axillary, mediastinal, or hilar regions. Heart, pericardium, and thoracic vessels: The thoracic aorta and main pulmonary artery are normal in caliber. The cardiac chambers are normal in size. Atherosclerotic coronary artery calcifications are noted. No pericardial effusion or thickening. Bones and soft tissues: No suspicious lytic or blastic osseous lesions. Upper abdomen: Diffuse hepatic fatty infiltration. No evidence of an adrenal mass. Localizer images: No additional findings. IMPRESSION: 1. No interval change since 10/16/23. 2. Mild patchy opacities in the left lung apex and punctate nodular opacity in the right lung, stable. Transcribe Date/Time: Apr 23 2024 5:32P Dictated by: ADAM MONTE MD This examination was interpreted and the report reviewed and electronically signed by: ADAM MONTE MD on Apr 23 2024 5:50PM EST Thank you for allowing us to participate in the care of your patient. Should there be any questions regarding this interpretation, please call [phone]. If you are unable to reach us at the number above, please feel free to contact [facility] at [phone]. [id number] N Normal [facility] CT Chest W contrast [place] IMPRESSION: 1. No interval change since 10/16/23. 2. Mild patchy opacities in the left lung apex and punctate nodular opacity in the right lung, stable. Transcribe Date/Time: Apr 23 2024 5:32P Dictated by: ADAM MONTE MD This examination was interpreted and the report reviewed and electronically signed by: ADAM MONTE MD on Apr 23 2024 5:50PM EST Thank you for allowing us to participate in the care of your patient. Should there be any questions regarding this interpretation, please call [phone]. If you are unable to reach us at the number above, please feel free to contact [facility] at [phone]. DIVISION OF RADIOLOGY * * *Final Report* * * DATE OF EXAM: Apr 23 2024 9:58AM [facility] 0539 - CT CHEST W IVCON / PROCEDURE REASON: multiple diagnoses * * * * Physician Interpretation * * * * RESULT: EXAMINATION: CHEST CT WITH CONTRAST CLINICAL HISTORY: Base of tongue cancer Technique: Spiral CT acquisition of the chest from the thoracic inlet to the upper abdomen following IV contrast. MQ: CTCW_6 Contrast: 100 mL Omnipaque [address] Radiation dose: Integrated Dose-length product (DLP) for this visit = 950 mGy*cm CT Dose Reduction Employed: Automated exposure control (AEC) Comparison: 10/16/23 RESULT: Limitations: None. Lines, tubes, and devices: None. Lung parenchyma and airways: Mild patchy opacities in the left lung apex (5:32), stable. 2-3 mm nodular opacity along the right major fissure (5:24), stable. No new airspace opacities. The central airways are patent. Pleural space: No pleural effusion. No pleural thickening. Lower neck, lymph nodes, and mediastinum: The imaged thyroid gland is normal. No lymphadenopathy in the supraclavicular, axillary, mediastinal, or hilar regions. Heart, pericardium, and thoracic vessels: The thoracic aorta and main pulmonary artery are normal in caliber. The cardiac chambers are normal in size. Atherosclerotic coronary artery calcifications are noted. No pericardial effusion or thickening. Bones and soft tissues: No suspicious lytic or blastic osseous lesions. Upper abdomen: Diffuse hepatic fatty infiltration. No evidence of an adrenal mass. Localizer images: No additional findings. DIVISION OF RADIOLOGY Provider, Jillian Gladis [facility] - 04/23/2024 * * *Final Report* * * DATE OF EXAM: Apr 23 2024 9:58AM [facility] 0539 - CT CHEST W IVCON / PROCEDURE REASON: multiple diagnoses * * * * Physician Interpretation * * * * RESULT: EXAMINATION: CHEST CT WITH CONTRAST CLINICAL HISTORY: Base of tongue cancer Technique: Spiral CT acquisition of the chest from the thoracic inlet to the upper abdomen following IV contrast. MQ: CTCW_6 Contrast: 100 mL Omnipaque [address] Radiation dose: Integrated Dose-length product (DLP) for this visit = 950 mGy*cm CT Dose Reduction Employed: Automated exposure control (AEC) Comparison: 10/16/23 RESULT: Limitations: None. Lines, tubes, and devices: None. Lung parenchyma and airways: Mild patchy opacities in the left lung apex (5:32), stable. 2-3 mm nodular opacity along the right major fissure (5:24), stable. No new airspace opacities. The central airways are patent. Pleural space: No pleural effusion. No pleural thickening. Lower neck, lymph nodes, and mediastinum: The imaged thyroid gland is normal. No lymphadenopathy in the supraclavicular, axillary, mediastinal, or hilar regions. Heart, pericardium, and thoracic vessels: The thoracic aorta and main pulmonary artery are normal in caliber. The cardiac chambers are normal in size. Atherosclerotic coronary artery calcifications are noted. No pericardial effusion or thickening. Bones and soft tissues: No suspicious lytic or blastic osseous lesions. Upper abdomen: Diffuse hepatic fatty infiltration. No evidence of an adrenal mass. Localizer images: No additional findings. IMPRESSION IMPRESSION: 1. No interval change since 10/16/23. 2. Mild patchy opacities in the left lung apex and punctate nodular opacity in the right lung, stable. Transcribe Date/Time: Apr 23 2024 5:32P Dictated by: ADAM MONTE MD This examination was interpreted and the report reviewed and electronically signed by: ADAM MONTE MD on Apr 23 2024 5:50PM EST Thank you for allowing us to participate in the care of your patient. Should there be any questions regarding this interpretation, please call [phone]. If you are unable to reach us at the number above, please feel free to contact [facility]iology at [phone]. 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 TECHNIQUE: Routine CT neck with contrast, for which 100 cc of Omnipaque [address] Dose-Length Product (DLP): 950 mGy*cm. CT Dose Reduction Employed:Yes. Radiation Shielding Employed: N/A. COMPARISON: CT neck 10/16/2023, and outside hospital CT neck 07/27/2022 (demonstrating bulky hyperdense mass at base of tongue, left more than right, extending to hypopharynx). RESULT: Inferior views of the brain are unremarkable. The globes and orbits remain normal. The paranasal sinuses, mastoid air cells and middle ear chambers all remain clear. The nasal cavity and nasopharynx remains normal. The oral cavity again shows asymmetry of the tongue base, with volume loss on the left, and is unchanged. The hypopharynx and supraglottic regions remain unremarkable. The glottis and paraglottic tissues remain normal. The major salivary glands remain symmetric and unremarkable. The thyroid gland remains within normal limits accounting for technique the major cervical vessels maintain normal course and caliber. Views of the superior lung bertrand remain unremarkable. There is no suspicious osseous lesion. 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 Archeologist Classical (topogram) images: No additional findings. IMPRESSION: 1. STABLE POSTTREATMENT CHANGES AT LEFT BASE OF TONGUE 2. NO NEW SUSPICIOUS SOFT TISSUE, EDEMA, ENHANCEMENT OR MASS EFFECT TO SUGGEST RECURRENCE 3. NO LYMPHADENOPATHY Transcribe Date/Time: Apr 23 2024 10:30A Dictated by: GRETCHEN WAGN MD This examination was interpreted and the report reviewed and electronically signed by: GRETCHEN WANG MD on Apr 23 2024 10:48AM EST Thank you for allowing us to participate in the care of your patient. Should there be any questions regarding this interpretation, please call [phone]. If you are unable to reach us at the number above, please feel free to contact [facility]iology at [phone]. [id number] N Normal [facility] CT Neck W contrast [place] 10 IMPRESSION: 1. STABLE POSTTREATMENT CHANGES AT LEFT BASE OF TONGUE 2. NO NEW SUSPICIOUS SOFT TISSUE, EDEMA, ENHANCEMENT OR MASS EFFECT TO SUGGEST RECURRENCE 3. NO LYMPHADENOPATHY Transcribe Date/Time: Apr 23 2024 10:30A Dictated by: GRETCHEN WANG MD This examination was interpreted and the report reviewed and electronically signed by: GRETCHEN WANG MD on Apr 23 2024 10:48AM EST Thank you for allowing us to participate in the care of your patient. Should there be any questions regarding this interpretation, please call [phone]. If you are unable to reach us at the number above, please feel free to contact [facility] at [phone]. 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 TECHNIQUE: Routine CT neck with contrast, for which 100 cc of Omnipaque [address] Dose-Length Product (DLP): 950 mGy*cm. CT Dose Reduction Employed:Yes. Radiation Shielding Employed: N/A. COMPARISON: CT neck 10/16/2023, and outside hospital CT neck 07/27/2022 (demonstrating bulky hyperdense mass at base of tongue, left more than right, extending to hypopharynx). RESULT: Inferior views of the brain are unremarkable. The globes and orbits remain normal. The paranasal sinuses, mastoid air cells and middle ear chambers all remain clear. The nasal cavity and nasopharynx remains normal. The oral cavity again shows asymmetry of the tongue base, with volume loss on the left, and is unchanged. The hypopharynx and supraglottic regions remain unremarkable. The glottis and paraglottic tissues remain normal. The major salivary glands remain symmetric and unremarkable. The thyroid gland remains within normal limits accounting for technique the major cervical vessels maintain normal course and caliber. Views of the superior lung bertrand remain unremarkable. There is no suspicious osseous lesion. 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 Archeologist Classical (topogram) images: No additional findings. 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 TECHNIQUE: Routine CT neck with contrast, for which 100 cc of Omnipaque [address] Dose-Length Product (DLP): 950 mGy*cm. CT Dose Reduction Employed:Yes. Radiation Shielding Employed: N/A. COMPARISON: CT neck 10/16/2023, and outside hospital CT neck 07/27/2022 (demonstrating bulky hyperdense mass at base of tongue, left more than right, extending to hypopharynx). RESULT: Inferior views of the brain are unremarkable. The globes and orbits remain normal. The paranasal sinuses, mastoid air cells and middle ear chambers all remain clear. The nasal cavity and nasopharynx remains normal. The oral cavity again shows asymmetry of the tongue base, with volume loss on the left, and is unchanged. The hypopharynx and supraglottic regions remain unremarkable. The glottis and paraglottic tissues remain normal. The major salivary glands remain symmetric and unremarkable. The thyroid gland remains within normal limits accounting for technique the major cervical vessels maintain normal course and caliber. Views of the superior lung bertrand remain unremarkable. There is no suspicious osseous lesion. 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 Archeologist Classical (topogram) images: No additional findings. IMPRESSION IMPRESSION: 1. STABLE POSTTREATMENT CHANGES AT LEFT BASE OF TONGUE 2. NO NEW SUSPICIOUS SOFT TISSUE, EDEMA, ENHANCEMENT OR MASS EFFECT TO SUGGEST RECURRENCE 3. NO LYMPHADENOPATHY Transcribe Date/Time: Apr 23 2024 10:30A Dictated by: GRETCHEN WANG MD This examination was interpreted and the report reviewed and electronically signed by: GRETCHEN WANG MD on Apr 23 2024 10:48AM EST Thank you for allowing us to participate in the care of your patient. Should there be any questions regarding this interpretation, please call [phone]. If you are unable to reach us at the number above, please feel free to contact [facility]iology at [phone]. [facility] CT Neck W contrast IVOrdered By: [facility] Provider on 04-23-2024 [facility] metabolic 2000 panelOrdered By: Moustapha Calderon on 04-23-2024 Albumin [Mass/Vol] 4.2 g/dL 3.9 - 4.9 g/dL [facility] ALP [Catalytic activity/Vol] 48 U/L 38 - 113 U/L [facility] ALT [Catalytic activity/Vol] 14 U/L 10 - 54 U/L [facility] Anion gap [Moles/Vol] 8 mmol/L 8 - 15 mmol/L [facility] AST [Catalytic activity/Vol] 15 U/L 14 - 40 U/L [facility] Bilirubin [Mass/Vol] 0.5 mg/dL 0.2 - 1 .3 mg/dL [facility] Calcium [Mass/Vol] 9.5 mg/dL 8.5 - 10. 2 mg/dL [facility] Chloride [Moles/Vol] 103 mmol/L 98 - 10 7 mmol/L [facility] CO2 [Moles/Vol] 30 mmol/L 22 - 30 mmol/L [facility] Creatinine [Mass/Vol] 1.32 mg/dL High 0.73 - 1.22 mg/dL [facility] GFR/1.73 sq M.predicted among non-blacks MDRD (S/P/Bld) [Vol rate/Area] 55 mL/min/{1.73_m2} Low - PINF [facility] Comment on above: Estimated Glomerular Filtration [...] not accurately reflect actual GFR. Glucose [Mass/Vol] 146 mg/dL High 74 - 99 mg/dL [facility] Comment on above: The [place] Diab[employer] Association (ADA) provides guidance for [...] Standards of Medical Care in Diabetes 2016, [place] [employer]. Diabetes Care. 2016.39(Suppl 1). Interpretation and review of laboratory results Abnormal [facility] Potassium [Moles/Vol] 4.3 mmol/L 3.7 - 5.1 mmol/L [facility] Protein [Mass/Vol] 6.6 g/dL 6.3 - 8.0 g/dL [facility] Sodium [Moles/Vol] 141 mmol/L 136 - 144 mmol/L [facility] Urea nitrogen [Mass/Vol] 18 mg/dL 9 - 24 mg/dL [facility] Comprehensive metabolic 2000 panelon 04-23-2024 Albumin [Mass/Vol] 4.2 g/dL Normal 3.9-4.9 [facility] Comment on above: Order Comment: Speci men Type: BLOOD SPECIMENOrdering Facility: [facility] Address: [address] [place] [address] Performed By: #### 2 4323-8 ####[facility] LABCLIA [id number] [place] [address] ALP [Catalytic activity/Vol] 48 U/L Normal 38-113 [facility] Comment on above: Order Comment: Speci men Type: BLOOD SPECIMENOrdering Facility: [facility] Address: [address] [place] [address] Performed By: #### 2 4323-8 ####[facility] LABCLIA [id number] [place] [address] ALT [Catalytic activity/Vol] 14 U/L Normal 10-54 [facility] Comment on above: Order Comment: Speci men Type: BLOOD SPECIMENOrdering Facility: [facility] Address: [address] [place] [address] Performed By: #### 2 4323-8 ####[facility] LABCLIA [id number] [place] [address] Anion gap [Moles/Vol] 8 mmol/L Normal 8-15 [facility] Comment on above: Order Comment: Speci men Type: BLOOD SPECIMENOrdering Facility: [facility] Address: [address] [place] [address] Performed By: #### 2 4323-8 ####[facility] LABCLIA [id number] [place] [address] AST [Catalytic activity/Vol] 15 U/L Normal 14-40 [facility] Comment on above: Order Comment: Speci men Type: BLOOD SPECIMENOrdering Facility: [facility] Address: [address] [place] [address] Performed By: #### 2 4323-8 ####[facility] LABCLIA [id number] [place] [address] Bilirubin [Mass/Vol] 0.5 mg/dL Normal 0.2-1.3 [facility] Comment on above: Order Comment: Speci men Type: BLOOD SPECIMENOrdering Facility: [facility] Address: [address] [place] [address] Performed By: #### 2 4323-8 ####[facility] LABCLIA [id number] [place] [address] Calcium [Mass/Vol] 9.5 mg/dL Normal 8.5-10.2 [facility] Comment on above: Order Comment: Speci men Type: BLOOD SPECIMENOrdering Facility: [facility] Address: [address] [place] [address] Performed By: #### 2 4323-8 ####[facility] LABCLIA [id number] [place] [address] Chloride [Moles/Vol] 103 mmol/L Normal 98-107 [facility] Comment on above: Order Comment: Speci men Type: BLOOD SPECIMENOrdering Facility: [facility] Address: [address] [place] [address] Performed By: #### 2 4323-8 ####[facility] LABCLIA [id number] [place] [address] CO2 [Moles/Vol] 30 mmol/L Normal 22-30 [facility] Comment on above: Order Comment: Speci men Type: BLOOD SPECIMENOrdering Facility: [facility] Address: [address] [place] [address] Performed By: #### 2 4323-8 ####[facility] LABCLIA [id number] [place] [address] Creatinine [Mass/Vol] 1.32 mg/dL High 0.73-1.22 [facility] Comment on above: Order Comment: Speci men Type: BLOOD SPECIMENOrdering Facility: [facility] Address: [address] [place] [address] Performed By: #### 2 4323-8 ####[facility] LABCLIA [id number] [place] [address] Creatinine and Glomerular filtration rate.predicted panel (S/P/Bld) 55 mL/min/1.73m??? Low >=60 [facility] Comment on above: Order Comment: Speci men Type: BLOOD SPECIMENOrdering Facility: [facility] Address: [address] [place] [address] Result Comment: Felicity mated Glomerular Filtration Rate [...] actual GFR. Performed By: #### 2 4323-8 ####[facility] LABCLIA [id number] [place] [address] Glucose [Mass/Vol] 146 mg/dL High 74-99 [facility] Comment on above: Order Comment: Speci men Type: BLOOD SPECIMENOrdering Facility: [facility] Address: [address] [place] [address] Result Comment: The [place] [employer] (ADA) provides guidance for cutoff [...] Standards of Medical Care in Diabetes 2016, [place] [employer]. Diabetes Care. 2016.39(Suppl 1). Performed By: #### 2 4323-8 ####[facility] LABCLIA [id number] [place] [address] Potassium [Moles/Vol] 4.3 mmol/L Normal 3.7-5.1 [facility] Comment on above: Order Comment: Speci men Type: BLOOD SPECIMENOrdering Facility: [facility] Address: [address] [place] [address] Performed By: #### 2 4323-8 ####[facility] LABCLIA [id number] [place] [address] Protein [Mass/Vol] 6.6 g/dL Normal 6.3-8.0 [facility] Comment on above: Order Comment: Speci men Type: BLOOD SPECIMENOrdering Facility: [facility] Address: [address] [place] [address] Performed By: #### 2 4323-8 ####[facility] LABCLIA [id number] [place] [address] Sodium [Moles/Vol] 141 mmol/L Normal 136-144 [facility] Comment on above: Order Comment: Speci men Type: BLOOD SPECIMENOrdering Facility: [facility] Address: [address] [place] [address] Performed By: #### 2 4323-8 ####[facility] LABCLIA [id number] [place] [address] Urea nitrogen [Mass/Vol] 18 mg/dL Normal 9-24 [facility] Comment on above: Order Comment: Speci men Type: BLOOD SPECIMENOrdering Facility: [facility] Address: [address] [place] [address] Performed By: #### 2 4323-8 ####[facility] LABCLIA [id number] [place] [address] FERRITINon 04-23-2024 Ferritin [Mass/Vol] 158.0 ng/mL 30.3 - 5 65.7 ng/mL [facility] FOLATE, SERUMon 04-23-2024 Folate [Mass/Vol] 12.1 ng/mL 4.7 - PINF ng/mL [facility] Ferritin SerPl-mCncon 2023 Ferritin [Mass/Vol] 158.0 ng/mL Normal 30.3-565.7 [facility] Comment on above: Order Comment: Speci men Type: BLOOD SPECIMENOrdering Facility: [facility] Address: [address] [place] [address] Performed By: #### 5 0190-8, 2132-9, 2276-4, 2284-8 ####[facility] LABCLIA [id number] [place] [address] [place] Folate SerPl-mCncon 04-23-20 Folate [Mass/Vol] 12.1 ng/mL Normal >4.7 [facility] Comment on above: Order Comment: Speci men Type: BLOOD SPECIMENOrdering Facility: [facility] Address: [address] [place] [address] Performed By: #### 5 0190-8, 2132-9, 2276-4, 2284-8 ####[facility] LABCLIA [id number] [place] [id number] [place] Iron and Iron binding capaci ty panelon 04-23-2024 Interpretation and review of laboratory results Normal [facility] Iron [Mass/Vol] 78 ug/dL 41 - 186 ug/dL [facility] Iron binding capacity [Mass/Vol] 300 ug/dL 232 - 386 ug/dL [facility] Iron/TIBC [Molar ratio] 26.0 % 15.0 - 57.0 % [facility] Iron [Mass/Vol] 78 ug/dL Normal 41-186 [facility] Comment on above: Order Comment: Speci men Type: BLOOD SPECIMENOrdering Facility: [facility] Address: [address] [place] [address] Performed By: #### 5 0190-8, 9, 2275-10, 2284-02 ####[facility] LABIA [id number] [address] [address] [place] Iron binding capacity [Mass/Vol] 300 ug/dL Normal 232-386 [facility] Comment on above: Order Comment: Speci men Type: BLOOD SPECIMENOrdering Facility: [facility] Address: [address] [place] [address] Performed By: #### 5 0190-8, 9, 2275-10, 2284-02 ####[facility] LABCLIA [id number] [address] [address] [place] Iron/TIBC [Molar ratio] 26.0 % Normal 15.0-57.0 [facility] Comment on above: Order Comment: Speci men Type: BLOOD SPECIMENOrdering Facility: [facility] Address: [address] [place] [address] Performed By: #### 5 0190-8, 9, 2275-10, 2284-02 ####[facility] LABCLIA [id number] [address] [address] [place] Laboratory - Hematology and Cell countson 04-23-2024 Basophils/100 WBC (Bld) 0.9 % [facility] Eosinophils/100 WBC (Bld) 1.7 % [facility] Erythrocyte distribution width (RBC) [Ratio] 14.4 % 11.5 - 15.0 % [facility] Hematocrit (Bld) [Volume fraction] 38.4 % Low 39.0 - 51.0 % [facility] Hemoglobin (Bld) [Mass/Vol] 13.3 g/dL 13.0 - 17.0 g/dL [facility] Lymphocytes/100 WBC (Bld) 13.3 % [facility] MCH (RBC) [Entitic mass] 31.9 pg 26.0 - 34.0 pg [facility] MCHC (RBC) [Mass/Vol] 34.6 g/dL 30.5 - 36.0 g/dL [facility] MCV (RBC) [Entitic vol] 92.1 fL 80.0 - 100.0 fL [facility] Monocytes/100 WBC (Bld) 8.7 % [facility] Neutrophils/100 WBC (Bld) 74.8 % [facility] RBC (Bld) [#/Vol] 4.17 10*6/uL Low 4.20 - 6.0 0 m/uL [facility] No Panel Informationon 04-23 Interpretation and review of laboratory results Normal [facility] Interpretation and review of laboratory results Abnormal [facility] Radiology Study observation (narrative) [facility] VITAMIN B12on 04-23-2024 Cobalamin (Vitamin B12) [Mass/Vol] 349 pg/mL 232 - 1245 pg/mL [facility] Vit B12 SerPl-mCncon 024 Cobalamin (Vitamin B12) [Mass/Vol] 349 pg/mL Normal 232-1245 [facility] Comment on above: Order Comment: Speci men Type: BLOOD SPECIMENOrdering Facility: [facility] Address: [address] [place] [address] Performed By: #### 5 0190-8, 2132-9, 2276-4, 2284-8 ####[facility] LABCLIA [id number] [place] [address] [place] ALL LIPID PROFILE (FASTING)o n 03-04-2024 CHOL [facility].1 [facility] Comment on above: 3.3 - 4.4 LOW RISK 4.4 - 7.1 AVERAGE RISK 7.1 - 11.0 MODERATE RISK >11.0 HIGH RISK Cholesterol [Mass/Vol] 176 mg/dL NINF - 200 mg/dL [facility] Cholesterol in HDL [Mass/Vol] 43 mg/dL 40 - 60 mg/dL [facility] Comment on above: > or =60 mg/dl - LOW CARDIOVASCULAR RISK <40 mg/dl - HIGH CARDIOVASCULAR RISK Magnesium [Mass/Vol] 115.8 mg/dL [facility] Comment on above: <100 mg/dl OPTIMAL 100-129 mg/dl NEAR OR ABOVE OPTIMAL 130-159 mg/dl BORDERLINE HIGH 160-189 mg/dl HIGH >190 mg/dl VERY HIGH Magnesium [Mass/Vol] 17.2 mg/dL [facility] Triglyceride [Mass/Vol] 86 mg/dL NINF - 150 mg/dL [facility] CNOVon 11-06-2023 CNOV Office Visit (RADTSA ) MANISH ROOT ([id number]) 1945 M Date Time Provider Department 11/06/23 [...] Lymph 1.00 - 4.00 k/uL 0.48 (L) Carlton% % 10.4 Abs Carlton <0.87 k/uL 0.32 Eosin% % 1.6 Abs [...] BP: 163/77 (more content not included)... Normal [facility] CNOVSPon 10-23-2023 CNOVSP Visit (SP) Office (HEMASA) MANISH ROOT ([id number]) 1945 M Date Time Provider Department 10/23/23 10:45 AM JOHN ENGLAND During your visit today, we recorded the following information about you: Temperature Pulse Respiration Blood pressure 97.8 degrees 54/minute 16/minute 144/70 Weight Height 87.5 kg 1.669 m John England MD 10/23/2023 10:31 PM Signed NAME: Manish Root [facility] NO.: [id number] DATE OF SERVICE: October 23, 2023 (juliana) [...] Ca Stage 3 - 2/5 LN + [place] regimen on protocol Updated Visit, October 23, [...] better but (more content not included)... Normal [facility] T3 SerPl-mCncon 10-23-2023 T3 [Mass/Vol] 93 ng/dL Normal 79-165 [facility] Comment on above: Order Comment: Speci men Type: BLOOD SPECIMENOrdering Facility: [facility] Address: [address] [place] [address] Performed By: #### 3 053-6, 3024-7, 3016-3 ####[facility] LABCLIA [id number] [facility] [place] [address] [place] T4 Free SerPl-mCncon 024 Free T4 [Mass/Vol] 1.2 ng/dL Normal 0.9-1.7 [facility] Comment on above: Order Comment: Speci men Type: BLOOD SPECIMENOrdering Facility: [facility] Address: [address] [place] [address] Performed By: #### 3 053-6, 3024-7, 3016-3 ####[facility] LABCLIA [id number] [place] [address] [place] TSH SerPl-aCncon 10-23-2023 TSH Qn 2.750 m[IU]/L Normal 0.270-4.200 [facility] Comment on above: Order Comment: Speci men Type: BLOOD SPECIMENOrdering Facility: [facility] Address: [address] [place] [address] Performed By: #### 3 053-6, 3024-7, 3016-3 ####[facility] LABCLIA [id number] [address] [place] Chest W contrast [place] IMPRESSION: 1. [...] any questions regarding this interpretation, please call [phone]. If you are unable to reach us at the number above, please feel free to contact [facility] eRadiology at [phone]. DIVISION OF RADIOLOGY * * *Final Report* * * DATE OF EXAM: Oct 16 2023 12:43PM [facility] 0539 - CT CHEST W IVCON / [...] No additional findings. DIVISION OF RADIOLOGY Provider, [facility] - 10/17/2023 * * *Final Report* * * DATE OF EXAM: Oct 16 2023 12:43PM [facility] 0539 - CT CHEST W IVCON / [...] any questions regarding this interpretation, please call [phone]. If you are unable to reach us at the number above, please feel free to contact [facility] eRadiology at [phone]. [facility] CT Chest W contrast IVOrdere d By: [facility] Provider on 10-17-2023 [facility] CBC W Auto Differential pane l (Bld)on 10-16-2023 Basophils (Bld) [#/Vol] [facility] Basophils/100 WBC (Bld) 0.6 % [facility] Differential cell count method Nom (Bld) Auto [facility] Eosinophils (Bld) [#/Vol] 0.05 10*3/uL [facility] Eosinophils/100 WBC (Bld) 1.6 % [facility] Erythrocyte distribution width (RBC) [Ratio] 13.8 % 11.5 - 15.0 % [facility] Hematocrit (Bld) [Volume fraction] 37.9 % Low 39.0 - 51.0 % [facility] Hemoglobin (Bld) [Mass/Vol] 12.6 g/dL Low 13.0 - 17.0 g/dL [facility] Immature granulocytes (Bld) [#/Vol] [facility] Immature granulocytes/100 WBC (Bld) 0.6 % [facility] Interpretation and review of laboratory results Abnormal [facility] Lymphocytes (Bld) [#/Vol] 0.48 10*3/uL Low [facility] Lymphocytes/100 WBC (Bld) 15.6 % [facility] MCH (RBC) [Entitic mass] 30.1 pg 26.0 - 34.0 pg [facility] MCHC (RBC) [Mass/Vol] 33.2 g/dL 30.5 - 36.0 g/dL [facility] MCV (RBC) [Entitic vol] 90.7 fL 80.0 - 100.0 fL [facility] Monocytes (Bld) [#/Vol] 0.32 10*3/uL [facility] Monocytes/100 WBC (Bld) 10.4 % [facility] Neutrophils (Bld) [#/Vol] 2.19 10*3/uL [facility] Neutrophils/100 WBC (Bld) 71.2 % [facility] Nucleated RBC (Bld) [#/Vol] [facility] Nucleated RBC/100 WBC (Bld) [Ratio] 0.0 % /100 WBC [facility] Platelet mean volume (Bld) [Entitic vol] 9.1 fL 9.0 - 12.7 fL [facility] Platelets (Bld) [#/Vol] 183 10*3/uL [facility] RBC (Bld) [#/Vol] 4.18 10*6/uL Low 4.20 - 6.0 0 m/uL [facility] WBC (Bld) [#/Vol] 3.08 10*3/uL Low [facility] Basophils (Bld) [#/Vol] 10*3/uL Normal <0.11 [facility] Comment on above: Order Comment: Speci men Type: BLOOD SPECIMENOrdering Facility: [facility] Address: [address] [place] [address] Performed By: #### 5 7021-8 ####[facility] LABCLIA [id number] [place] [address] Basophils/100 WBC (Bld) 0.6 % Normal [facility] Comment on above: Order Comment: Speci men Type: BLOOD SPECIMENOrdering Facility: [facility] Address: [address] [place] [address] Performed By: #### 5 7021-8 ####[facility] LABCLIA [id number] [place] [address] Differential cell count method Nom (Bld) Auto Normal [facility] Comment on above: Order Comment: Speci men Type: BLOOD SPECIMENOrdering Facility: [facility] Address: [address] [place] [address] Performed By: #### 5 7021-8 ####[facility] LABCLIA [id number] [place] [address] Eosinophils (Bld) [#/Vol] 0.05 10*3/uL Normal <0.46 [facility] Comment on above: Order Comment: Speci men Type: BLOOD SPECIMENOrdering Facility: [facility] Address: [address] [place] [address] Performed By: #### 5 7021-8 ####[facility] LABCLIA [id number] [place] [address] Eosinophils/100 WBC (Bld) 1.6 % Normal [facility] Comment on above: Order Comment: Speci men Type: BLOOD SPECIMENOrdering Facility: [facility] Address: [address] [place] [address] Performed By: #### 5 7021-8 ####[facility] LABCLIA [id number] [place] [address] Erythrocyte distribution width (RBC) [Ratio] 13.8 % Normal 11.5-15.0 [facility] Comment on above: Order Comment: Speci men Type: BLOOD SPECIMENOrdering Facility: [facility] Address: [address] [place] [address] Performed By: #### 5 7021-8 ####[facility] LABCLIA [id number] [place] [address] Hematocrit (Bld) [Volume fraction] 37.9 % Low 39.0-51.0 [facility] Comment on above: Order Comment: Speci men Type: BLOOD SPECIMENOrdering Facility: [facility] Address: [address] [place] [address] Performed By: #### 5 7021-8 ####[facility] LABIA [id number] [place] [address] Hemoglobin (Bld) [Mass/Vol] 12.6 g/dL Low 13.0-17.0 [facility] Comment on above: Order Comment: Speci men Type: BLOOD SPECIMENOrdering Facility: [facility] Address: [address] [place] [address] Performed By: #### 5 7021-8 ####[facility] LABCLIA [id number] [place] [address] Immature granulocytes (Bld) [#/Vol] 10*3/uL Normal <0.10 [facility] Comment on above: Order Comment: Speci men Type: BLOOD SPECIMENOrdering Facility: [facility] Address: [address] [place] [address] Performed By: #### 5 7021-8 ####[facility] LABCLIA [id number] [place] [address] Immature granulocytes/100 WBC (Bld) 0.6 % Normal [facility] Comment on above: Order Comment: Speci men Type: BLOOD SPECIMENOrdering Facility: [facility] Address: [address] [place] [address] Performed By: #### 5 7021-8 ####[facility] LABCLIA [id number] [place] [address] Lymphocytes (Bld) [#/Vol] 0.48 10*3/uL Low 1.00-4.00 [facility] Comment on above: Order Comment: Speci men Type: BLOOD SPECIMENOrdering Facility: [facility] Address: [address] [place] [address] Performed By: #### 5 7021-8 ####[facility] LABCLIA [id number] [place] [address] Lymphocytes/100 WBC (Bld) 15.6 % Normal [facility] Comment on above: Order Comment: Speci men Type: BLOOD SPECIMENOrdering Facility: [facility] Address: [address] [place] [address] Performed By: #### 5 7021-8 ####[facility] LABCLIA [id number] [place] [address] MCH (RBC) [Entitic mass] 30.1 pg Normal 26.0-34.0 [facility] Comment on above: Order Comment: Speci men Type: BLOOD SPECIMENOrdering Facility: [facility] Address: [address] [place] [address] Performed By: #### 5 7021-8 ####[facility] LABCLIA [id number] [place] [address] MCHC (RBC) [Mass/Vol] 33.2 g/dL Normal 30.5-36.0 [facility] Comment on above: Order Comment: Speci men Type: BLOOD SPECIMENOrdering Facility: [facility] Address: [address] [place] [address] Performed By: #### 5 7021-8 ####[facility] LABCLIA [id number] [place] [address] MCV (RBC) [Entitic vol] 90.7 fL Normal 80.0-100.0 [facility] Comment on above: Order Comment: Speci men Type: BLOOD SPECIMENOrdering Facility: [facility] Address: [address] [place] [address] Performed By: #### 5 7021-8 ####[facility] LABCLIA [id number] [place] [address] Monocytes (Bld) [#/Vol] 0.32 10*3/uL Normal <0.87 [facility] Comment on above: Order Comment: Speci men Type: BLOOD SPECIMENOrdering Facility: [facility] Address: [address] [place] [address] Performed By: #### 5 7021-8 ####[facility] LABCLIA [id number] [place] [address] Monocytes/100 WBC (Bld) 10.4 % Normal [facility] Comment on above: Order Comment: Speci men Type: BLOOD SPECIMENOrdering Facility: [facility] Address: [address] [place] [address] Performed By: #### 5 7021-8 ####[facility] LABCLIA [id number] [place] [address] Neutrophils (Bld) [#/Vol] 2.19 10*3/uL Normal 1.45-7.50 [facility] Comment on above: Order Comment: Speci men Type: BLOOD SPECIMENOrdering Facility: [facility] Address: [address] [place] [address] Performed By: #### 5 7021-8 ####[facility] LABCLIA [id number] [place] [address] Neutrophils/100 WBC (Bld) 71.2 % Normal [facility] Comment on above: Order Comment: Speci men Type: BLOOD SPECIMENOrdering Facility: [facility] Address: [address] [place] [address] Performed By: #### 5 7021-8 ####[facility] LABCLIA [id number] [place] [address] Nucleated RBC (Bld) [#/Vol] 10*3/uL Normal <0.01 [facility] Comment on above: Order Comment: Speci men Type: BLOOD SPECIMENOrdering Facility: [facility] Address: [address] [place] [address] Performed By: #### 5 7021-8 ####[facility] LABCLIA [id number] [place] [address] Nucleated RBC/100 WBC (Bld) [Ratio] 0.0 /100 WBC Normal [facility] Comment on above: Order Comment: Speci men Type: BLOOD SPECIMENOrdering Facility: [facility] Address: [address] [place] [address] Performed By: #### 5 7021-8 ####[facility] LABCLIA [id number] [place] [address] Platelet mean volume (Bld) [Entitic vol] 9.1 fL Normal 9.0-12.7 [facility] Comment on above: Order Comment: Speci men Type: BLOOD SPECIMENOrdering Facility: [facility] Address: [address] [place] [address] Performed By: #### 5 7021-8 ####[facility] LABCLIA [id number] [place] [address] Platelets (Bld) [#/Vol] 183 10*3/uL Normal 150-400 [facility] Comment on above: Order Comment: Speci men Type: BLOOD SPECIMENOrdering Facility: [facility] Address: [address] [place] [address] Performed By: #### 5 7021-8 ####[facility] LABCLIA [id number] [place] [address] RBC (Bld) [#/Vol] 4.18 10*6/uL Low 4.20-6.00 [facility] Comment on above: Order Comment: Speci men Type: BLOOD SPECIMENOrdering Facility: [facility] Address: [address] [place], [place] [address] Performed By: #### 5 7021-8 ####[facility] LABIA [id number] [place] [address] WBC (Bld) [#/Vol] 3.08 10*3/uL Low 3.70-11.00 [facility] Comment on above: Order Comment: Speci men Type: BLOOD SPECIMENOrdering Facility: [facility] Address: [address] [place], [place] [address] Performed By: #### 5 7021-8 ####[facility] LABIA [id number] [place] [address] Kane 10-16-2023 CNPN Telephone (HEMASA) MANISH ROOT ([id number]) 1945 M Date Time Provider Department 10/16/23 RAFAEL MENG HEMSARTHAK During your visit today, we recorded the following information about you: Rafael Meng RN 10/16/2023 1:17 PM Signed Pt had labs drawn today. Requests that the results be faxed to his PCP, Dr Drake. Results of CBC and CMP faxed to [phone]. Rafael Meng RN Allergies As of Date: [...] Status:Closed by RAFAEL MENG on 10/16/23 Normal [facility] CT CHEST W IVCONon CT CHEST W IVCON * * *Final Report* * * DATE OF EXAM: Oct 16 2023 12:43PM [facility] 0539 - CT CHEST W IVCON / [...] any questions regarding this interpretation, please call [phone]. If you are unable to reach us at the number above, please feel free to contact [facility] eRadiology at [phone]. [id number] N Normal [facility] CT NECK SOFT TISSUE W IVCONo n 10-16-2023 CT NECK SOFT TISSUE W IVCON * * *Final Report* * * DATE OF EXAM: Oct 16 2023 12:43PM [facility] 0013 - CT NECK SOFT TISSUE W [...] any questions regarding this interpretation, please call [phone]. If you are unable to reach us at the number above, please feel [facility] to contact [facility] at [phone]. [id number] N Normal [facility] CT Neck W contrast Kinga 04-1 [...] any questions regarding this interpretation, please call [phone]. If you are unable to reach us at the number above, please feel free to contact [facility] at [phone]. DIVISION OF RADIOLOGY * * *Final Report* * * DATE OF EXAM: Oct 16 2023 12:43PM [facility] 0013 - CT NECK SOFT TISSUE W [...] the intrathoracic contents. DIVISION OF RADIOLOGY Provider, Roxanne marie [place] - 10/16/2023 * * *Final Report* * * DATE OF EXAM: Oct 16 2023 12:43PM [facility] 0013 - CT NECK SOFT TISSUE W [...] any questions regarding this interpretation, please call [phone]. If you are unable to reach us at the number above, please feel free to contact [facility] eRadiology at [phone]. [facility] Comprehensive metabolic 2000 panelOrdered By: Moustapha Calderon on 10-16-2023 Albumin [Mass/Vol] 4.4 g/dL 3.9 - 4.9 g/dL [facility] ALP [Catalytic activity/Vol] 48 U/L 38 - 113 U/L [facility] ALT [Catalytic activity/Vol] 13 U/L 10 - 54 U/L [facility] Anion gap [Moles/Vol] 11 mmol/L 9 - 18 mmol/L [facility] AST [Catalytic activity/Vol] 15 U/L 14 - 40 U/L [facility] Bilirubin [Mass/Vol] 0.5 mg/dL 0.2 - 1 .3 mg/dL [facility] Calcium [Mass/Vol] 9.7 mg/dL 8.5 - 10. 2 mg/dL [facility] Chloride [Moles/Vol] 105 mmol/L 97 - 10 5 mmol/L [facility] CO2 [Moles/Vol] 26 mmol/L 22 - 30 mmol/L [facility] Creatinine [Mass/Vol] 1.34 mg/dL High 0.73 - 1.22 mg/dL [facility] GFR/1.73 sq M.predicted among non-blacks MDRD (S/P/Bld) [Vol rate/Area] 54 mL/min/{1.73_m2} Low - PINF [facility] Comment on above: Estimated Glomerular Filtration [...] 135 mg/dL High 74 - 99 mg/dL [facility] Comment on above: The [place] Diabete s Association (ADA) provides guidance for [...] Standards of Medical Care in Diabetes 2016, [place] Diabetes Association. Diabetes Care. 2016.39(Suppl 1). Interpretation and review of laboratory results Abnormal [facility] Potassium [Moles/Vol] 4.5 mmol/L 3.7 - 5.1 mmol/L [facility] Protein [Mass/Vol] 6.7 g/dL 6.3 - 8.0 g/dL [facility] Sodium [Moles/Vol] 142 mmol/L 136 - 144 mmol/L [facility] Urea nitrogen [Mass/Vol] 22 mg/dL 9 - 24 mg/dL [facility] Comprehensive metabolic 2000 panelon 10-16-2023 Albumin [Mass/Vol] 4.4 g/dL Normal 3.9-4.9 [facility] Comment on above: Order Comment: Speci men Type: BLOOD SPECIMENOrdering Facility: [facility] Address: [address] [place] [address] Performed By: #### 2 4323-8 ####[facility] LABCLIA [id number] [place] [address] ALP [Catalytic activity/Vol] 48 U/L Normal 38-113 [facility] Comment on above: Order Comment: Speci men Type: BLOOD SPECIMENOrdering Facility: [facility] Address: [address] [place] [address] Performed By: #### 2 4323-8 ####[facility] LABCLIA [id number] [place] [address] ALT [Catalytic activity/Vol] 13 U/L Normal 10-54 [facility] Comment on above: Order Comment: Speci men Type: BLOOD SPECIMENOrdering Facility: [facility] Address: [address] [place], [place] [address] Performed By: #### 2 4323-8 ####[facility] LABCLIA [id number] [place] [address] Anion gap [Moles/Vol] 11 mmol/L Normal 9-18 [facility] Comment on above: Order Comment: Speci men Type: BLOOD SPECIMENOrdering Facility: [facility] Address: [address] [place] [address] Performed By: #### 2 4323-8 ####[facility] LABCLIA [id number] [place] [address] AST [Catalytic activity/Vol] 15 U/L Normal 14-40 [facility] Comment on above: Order Comment: Speci men Type: BLOOD SPECIMENOrdering Facility: [facility] Address: [address] [place] [address] Performed By: #### 2 4323-8 ####[facility] LABCLIA [id number] [place] [address] Bilirubin [Mass/Vol] 0.5 mg/dL Normal 0.2-1.3 [facility] Comment on above: Order Comment: Speci men Type: BLOOD SPECIMENOrdering Facility: [facility] Address: [address] [place], [place] [address] Performed By: #### 2 4323-8 ####[facility] LABCLIA [id number] [place] [address] Calcium [Mass/Vol] 9.7 mg/dL Normal 8.5-10.2 [facility] Comment on above: Order Comment: Speci men Type: BLOOD SPECIMENOrdering Facility: [facility] Address: [address] [place] [address] Performed By: #### 2 4323-8 ####[facility] LABCLIA [id number] [place] [address] Chloride [Moles/Vol] 105 mmol/L Normal 97-105 [facility] Comment on above: Order Comment: Speci men Type: BLOOD SPECIMENOrdering Facility: [facility] Address: [address] [place] [address] Performed By: #### 2 4323-8 ####[facility] LABCLIA [id number] [place] [address] CO2 [Moles/Vol] 26 mmol/L Normal 22-30 [facility] Comment on above: Order Comment: Speci men Type: BLOOD SPECIMENOrdering Facility: [facility] Address: [address] [place] [address] Performed By: #### 2 4323-8 ####[facility] LABCLIA [id number] [place] [address] Creatinine [Mass/Vol] 1.34 mg/dL High 0.73-1.22 [facility] Comment on above: Order Comment: Speci men Type: BLOOD SPECIMENOrdering Facility: [facility] Address: [address] [place] [address] Performed By: #### 2 4323-8 ####[facility] LABCLIA [id number] [place] [address] Creatinine and Glomerular filtration rate.predicted panel (S/P/Bld) 54 mL/min/1.73m??? Low >=60 [facility] Comment on above: Order Comment: Speci men Type: BLOOD SPECIMENOrdering Facility: [facility] Address: [address] [place] [address] Result Comment: Felicity mated Glomerular Filtration Rate [...] actual GFR. Performed By: #### 2 4323-8 ####[facility] LABCLIA [id number] [place] [address] Glucose [Mass/Vol] 135 mg/dL High 74-99 [facility] Comment on above: Order Comment: Speci men Type: BLOOD SPECIMENOrdering Facility: [facility] Address: [address] [place] [address] Result Comment: The [place] Diabetes Association (ADA) provides guidance for cutoff [...] Standards of Medical Care in Diabetes 2016, [place] Diabetes Association. Diabetes Care. 2016.39(Suppl 1). Performed By: #### 2 4323-8 ####[facility] LABCLIA [id number] [place] [address] Potassium [Moles/Vol] 4.5 mmol/L Normal 3.7-5.1 [facility] Comment on above: Order Comment: Speci men Type: BLOOD SPECIMENOrdering Facility: [facility] Address: [address] [place] [address] Performed By: #### 2 4323-8 ####[facility] LABCLIA [id number] [place] [address] Protein [Mass/Vol] 6.7 g/dL Normal 6.3-8.0 [facility] Comment on above: Order Comment: Speci men Type: BLOOD SPECIMENOrdering Facility: [facility] Address: [address] [place], [place] [address] Performed By: #### 2 4323-8 ####[facility] LABCLIA [id number] [place] [address] Sodium [Moles/Vol] 142 mmol/L Normal 136-144 [facility] Comment on above: Order Comment: Speci men Type: BLOOD SPECIMENOrdering Facility: [facility] Address: [address] [place] [address] Performed By: #### 2 4323-8 ####[facility] LABCLIA [id number] [place] [address] Urea nitrogen [Mass/Vol] 22 mg/dL Normal 9-24 [facility] Comment on above: Order Comment: Speci men Type: BLOOD SPECIMENOrdering Facility: [facility] Address: [address] [place] [address] Performed By: #### 2 4323-8 ####[facility] LABCLIA [id number] [place] [address] No Panel Informationon 10-15 Radiology Study observation (narrative) [facility] CNOVSPon 06-19-2023 CNOVSP Visit (SP) Office (HEMASA) MANISH ROOT ([id number]) 1945 M Date Time Provider Department 06/19/23 9:45 AM JOHN ENGLAND During your visit today, we recorded the following information about you: Temperature Pulse Respiration Blood pressure 97.2 degrees 54/minute 16/minute 140/69 Weight 82.9 kg John England MD 06/20/2023 8:01 AM Signed NAME: Manish Root NO.: [id number] DATE OF SERVICE: June 19, 2023 ([place]) Some elements in this clinic note that [...] Ca Stage 3 - 2/5 LN + [place] regimen on protocol Updated Visit, June 19, [...] swallowing. Updated Visit, October 19, 2022: Manish anup (more content not included)... Normal [facility] CT CHEST W IVCONon CT CHEST W IVCON * * *Final Report* * * DATE OF EXAM: Jun 12 2023 8:15AM [facility] 0539 - CT CHEST W IVCON / [...] noted are nonspecific noncalcified pulmonary nodules, with chemical sales representative larger examples detailed as follows [...] No abnormality in the imaged upper abdomen. Archeologist Classical (topogram) images: No additional findings. IMPRESSION: 1. [...] any questions regarding this interpretation, please call [phone]. If you are unable to reach us at the number above, please feel free to contact [facility] eRadiology at [phone]. [id number] N Normal [facility] CT Chest W contrast Kinga IMPRESSION: [...] any questions regarding this interpretation, please call [phone]. If you are unable to reach us at the number above, please feel free to contact [facility] at [phone]. DIVISION OF RADIOLOGY * * *Final Report* * * DATE OF EXAM: Jun 12 2023 8:15AM [facility] 0539 - CT CHEST W IVCON / [...] noted are nonspecific noncalcified pulmonary nodules, with chemical sales representative larger examples detailed as follows [...] No abnormality in the imaged upper abdomen. Archeologist Classical (topogram) images: No additional findings. DIVISION OF RADIOLOGY Provider, [facility] - 06/12/2023 * * *Final Report* * * DATE OF EXAM: Jun 12 2023 8:15AM [facility] 0539 - CT CHEST W IVCON / [...] noted are nonspecific noncalcified pulmonary nodules, with chemical sales representative larger examples detailed as follows [...] No abnormality in the imaged upper abdomen. Archeologist Classical (topogram) images: No additional findings. IMPRESSION IMPRESSION: [...] any questions regarding this interpretation, please call [phone]. If you are unable to reach us at the number above, please feel free to contact [facility] eRadiology at [phone]. [facility] Radiology Study observation (narrative) [facility] CT Chest W contrast IVOrdere d By: Ccf Provider on 06-12-2023 [facility] CBC W Auto Differential pane l (Bld)on 06-11-2023 Basophils (Bld) [#/Vol] 0.03 10*3/uL Normal <0.11 [facility] Comment on above: Order Comment: Speci men Type: BLOOD SPECIMENOrdering Facility: [facility] Address: [address] [place] [address] Performed By: #### 5 7021-8 ####[facility] LABCLIA [id number] [place] [address] Basophils/100 WBC (Bld) 0.9 % Normal [facility] Comment on above: Order Comment: Speci men Type: BLOOD SPECIMENOrdering Facility: [facility] Address: [address] [place] [address] Performed By: #### 5 7021-8 ####[facility] LABCLIA [id number] [place] [address] Differential cell count method Nom (Bld) Auto Normal [facility] Comment on above: Order Comment: Speci men Type: BLOOD SPECIMENOrdering Facility: [facility] Address: [address] [place] [address] Performed By: #### 5 7021-8 ####[facility] LABCLIA [id number] [place] [address] Eosinophils (Bld) [#/Vol] 0.05 10*3/uL Normal <0.46 [facility] Comment on above: Order Comment: Speci men Type: BLOOD SPECIMENOrdering Facility: [facility] Address: [address] [place] [address] Performed By: #### 5 7021-8 ####[facility] LABCLIA [id number] [place] [address] Eosinophils/100 WBC (Bld) 1.4 % Normal [facility] Comment on above: Order Comment: Speci men Type: BLOOD SPECIMENOrdering Facility: [facility] Address: [address] [place] [address] Performed By: #### 5 7021-8 ####[facility] LABCLIA [id number] [place] [address] Erythrocyte distribution width (RBC) [Ratio] 13.5 % Normal 11.5-15.0 [facility] Comment on above: Order Comment: Speci men Type: BLOOD SPECIMENOrdering Facility: [facility] Address: [address] [place] [address] Performed By: #### 5 7021-8 ####[facility] LABIA [id number] [place] [address] Hematocrit (Bld) [Volume fraction] 39.8 % Normal 39.0-51.0 [facility] Comment on above: Order Comment: Speci men Type: BLOOD SPECIMENOrdering Facility: [facility] Address: [address] [place] [address] Performed By: #### 5 7021-8 ####[facility] LABIA [id number] [place] [address] Hemoglobin (Bld) [Mass/Vol] 13.3 g/dL Normal 13.0-17.0 [facility] Comment on above: Order Comment: Speci men Type: BLOOD SPECIMENOrdering Facility: [facility] Address: [address] [place] [address] Performed By: #### 5 7021-8 ####[facility] LABIA [id number] [place] [address] Immature granulocytes (Bld) [#/Vol] 0.03 10*3/uL Normal <0.10 [facility] Comment on above: Order Comment: Speci men Type: BLOOD SPECIMENOrdering Facility: [facility] Address: [address] [place] [address] Performed By: #### 5 7021-8 ####[facility] LABIA [id number] [place] [address] Immature granulocytes/100 WBC (Bld) 0.9 % Normal [facility] Comment on above: Order Comment: Speci men Type: BLOOD SPECIMENOrdering Facility: [facility] Address: [address] [place] [address] Performed By: #### 5 7021-8 ####[facility] LABCLIA [id number] [place] [address] Lymphocytes (Bld) [#/Vol] 0.53 10*3/uL Low 1.00-4.00 [facility] Comment on above: Order Comment: Speci men Type: BLOOD SPECIMENOrdering Facility: [facility] Address: [address] [place] [address] Performed By: #### 5 7021-8 ####[facility] LABCLIA [id number] [place] [address] Lymphocytes/100 WBC (Bld) 15.2 % Normal [facility] Comment on above: Order Comment: Speci men Type: BLOOD SPECIMENOrdering Facility: [facility] Address: [address] [place] [address] Performed By: #### 5 7021-8 ####[facility] LABCLIA [id number] [place] [address] MCH (RBC) [Entitic mass] 30.5 pg Normal 26.0-34.0 [facility] Comment on above: Order Comment: Speci men Type: BLOOD SPECIMENOrdering Facility: [facility] Address: [address] [place] [address] Performed By: #### 5 7021-8 ####[facility] LABCLIA [id number] [place] [address] MCHC (RBC) [Mass/Vol] 33.4 g/dL Normal 30.5-36.0 [facility] Comment on above: Order Comment: Speci men Type: BLOOD SPECIMENOrdering Facility: [facility] Address: [address] [place] [address] Performed By: #### 5 7021-8 ####[facility] LABCLIA [id number] [place] [address] MCV (RBC) [Entitic vol] 91.3 fL Normal 80.0-100.0 [facility] Comment on above: Order Comment: Speci men Type: BLOOD SPECIMENOrdering Facility: [facility] Address: [address] [place] [address] Performed By: #### 5 7021-8 ####[facility] LABCLIA [id number] [place] [address] Monocytes (Bld) [#/Vol] 0.42 10*3/uL Normal <0.87 [facility] Comment on above: Order Comment: Speci men Type: BLOOD SPECIMENOrdering Facility: [facility] Address: [address] [place] [address] Performed By: #### 5 7021-8 ####[facility] LABCLIA [id number] [place] [address] Monocytes/100 WBC (Bld) 12.0 % Normal [facility] Comment on above: Order Comment: Speci men Type: BLOOD SPECIMENOrdering Facility: [facility] Address: [address] [place] [address] Performed By: #### 5 7021-8 ####[facility] LABCLIA [id number] [place] [address] Neutrophils (Bld) [#/Vol] 2.43 10*3/uL Normal 1.45-7.50 [facility] Comment on above: Order Comment: Speci men Type: BLOOD SPECIMENOrdering Facility: [facility] Address: [address] [place] [address] Performed By: #### 5 7021-8 ####[facility] LABCLIA [id number] [place] [address] Neutrophils/100 WBC (Bld) 69.6 % Normal [facility] Comment on above: Order Comment: Speci men Type: BLOOD SPECIMENOrdering Facility: [facility] Address: [address] [place] [address] Performed By: #### 5 7021-8 ####[facility] LABCLIA [id number] [place] [address] Nucleated RBC (Bld) [#/Vol] 10*3/uL Normal <0.01 [facility] Comment on above: Order Comment: Speci men Type: BLOOD SPECIMENOrdering Facility: [facility] Address: [address] [place] [address] Performed By: #### 5 7021-8 ####[facility] LABCLIA [id number] [place] [address] Nucleated RBC/100 WBC (Bld) [Ratio] 0.0 /100 WBC Normal [facility] Comment on above: Order Comment: Speci men Type: BLOOD SPECIMENOrdering Facility: [facility] Address: [address] [place] [address] Performed By: #### 5 7021-8 ####[facility] LABCLIA [id number] [place] [address] Platelet mean volume (Bld) [Entitic vol] 9.0 fL Normal 9.0-12.7 [facility] Comment on above: Order Comment: Speci men Type: BLOOD SPECIMENOrdering Facility: [facility] Address: [address] [place] [address] Performed By: #### 5 7021-8 ####[facility] LABCLIA [id number] [place] [address] Platelets (Bld) [#/Vol] 180 10*3/uL Normal 150-400 [facility] Comment on above: Order Comment: Speci men Type: BLOOD SPECIMENOrdering Facility: [facility] Address: [address] [place] [address] Performed By: #### 5 7021-8 ####[facility] LABCLIA [id number] [place] [address] RBC (Bld) [#/Vol] 4.36 10*6/uL Normal 4.20-6.00 [facility] Comment on above: Order Comment: Speci men Type: BLOOD SPECIMENOrdering Facility: [facility] Address: [address] [place] [address] Performed By: #### 5 7021-8 ####[facility] LABCLIA [id number] [place] [address] WBC (Bld) [#/Vol] 3.49 10*3/uL Low 3.70-11.00 [facility] Comment on above: Order Comment: Speci men Type: BLOOD SPECIMENOrdering Facility: [facility] Address: [address] [place] [address] Performed By: #### 5 7021-8 ####[facility] LABCLIA [id number] [place] [address] Comprehensive metabolic 2000 panelon 06-11-2023 Albumin [Mass/Vol] 4.8 g/dL Normal 3.9-4.9 [facility] Comment on above: Order Comment: Speci men Type: BLOOD SPECIMENOrdering Facility: [facility] Address: [address] [place] [address] Performed By: #### 2 4323-8 ####[facility] LABCLIA [id number] [place] [address] ALP [Catalytic activity/Vol] 47 U/L Normal 38-113 [facility] Comment on above: Order Comment: Speci men Type: BLOOD SPECIMENOrdering Facility: [facility] Address: [address] [place] [address] Performed By: #### 2 4323-8 ####[facility] LABCLIA [id number] [place] [address] ALT [Catalytic activity/Vol] 11 U/L Normal 10-54 [facility] Comment on above: Order Comment: Speci men Type: BLOOD SPECIMENOrdering Facility: [facility] Address: [address] [place] [address] Performed By: #### 2 4323-8 ####[facility] LABCLIA [id number] [place] [address] Anion gap [Moles/Vol] 10 mmol/L Normal 9-18 [facility] Comment on above: Order Comment: Speci men Type: BLOOD SPECIMENOrdering Facility: [facility] Address: [address] [place] [address] Performed By: #### 2 4323-8 ####[facility] LABCLIA [id number] [place] [address] AST [Catalytic activity/Vol] 15 U/L Normal 14-40 [facility] Comment on above: Order Comment: Speci men Type: BLOOD SPECIMENOrdering Facility: [facility] Address: [address] [place] [address] Performed By: #### 2 4323-8 ####[facility] LABCLIA [id number] [place] [address] Bilirubin [Mass/Vol] 0.6 mg/dL Normal 0.2-1.3 [facility] Comment on above: Order Comment: Speci men Type: BLOOD SPECIMENOrdering Facility: [facility] Address: [address] [place] [address] Performed By: #### 2 4323-8 ####[facility] LABCLIA [id number] [place] [address] Calcium [Mass/Vol] 10.1 mg/dL Normal 8.5-10.2 [facility] Comment on above: Order Comment: Speci men Type: BLOOD SPECIMENOrdering Facility: [facility] Address: [address] [place] [address] Performed By: #### 2 4323-8 ####[facility] LABCLIA [id number] [place] [address] Chloride [Moles/Vol] 102 mmol/L Normal 97-105 [facility] Comment on above: Order Comment: Speci men Type: BLOOD SPECIMENOrdering Facility: [facility] Address: [address] [place] [address] Performed By: #### 2 4323-8 ####[facility] LABCLIA [id number] [place] [address] CO2 [Moles/Vol] 30 mmol/L Normal 22-30 [facility] Comment on above: Order Comment: Speci men Type: BLOOD SPECIMENOrdering Facility: [facility] Address: [address] [place] [address] Performed By: #### 2 4323-8 ####[facility] LABCLIA [id number] [place] [address] Creatinine [Mass/Vol] 1.30 mg/dL High 0.73-1.22 [facility] Comment on above: Order Comment: Speci men Type: BLOOD SPECIMENOrdering Facility: [facility] Address: [address] [place] [address] Performed By: #### 2 4323-8 ####[facility] LABCLIA [id number] [place] [address] Creatinine and Glomerular filtration rate.predicted panel (S/P/Bld) 56 mL/min/1.73m??? Low >=60 [facility] Comment on above: Order Comment: Speci men Type: BLOOD SPECIMENOrdering Facility: [facility] Address: [address] [place] [address] Result Comment: Felicity mated Glomerular Filtration Rate [...] actual GFR. Performed By: #### 2 4323-8 ####[facility] LABCLIA [id number] [place] [address] Glucose [Mass/Vol] 112 mg/dL High 74-99 [facility] Comment on above: Order Comment: Speci men Type: BLOOD SPECIMENOrdering Facility: [facility] Address: [address] [place] [address] Result Comment: The [place] [employer] (ADA) provides guidance for cutoff [...] Standards of Medical Care in Diabetes 2016, [place] [employer]. Diabetes Care. 2016.39(Suppl 1). Performed By: #### 2 4323-8 ####[facility] LABCLIA [id number] [place] [address] Potassium [Moles/Vol] 4.4 mmol/L Normal 3.7-5.1 [facility] Comment on above: Order Comment: Speci men Type: BLOOD SPECIMENOrdering Facility: [facility] Address: [address] [place] [address] Performed By: #### 2 4323-8 ####[facility] LABCLIA [id number] [place] [address] Protein [Mass/Vol] 7.4 g/dL Normal 6.3-8.0 [facility] Comment on above: Order Comment: Speci men Type: BLOOD SPECIMENOrdering Facility: [facility] Address: [address] [place] [address] Performed By: #### 2 4323-8 ####[facility] LABCLIA [id number] [place] [address] Sodium [Moles/Vol] 142 mmol/L Normal 136-144 [facility] Comment on above: Order Comment: Speci men Type: BLOOD SPECIMENOrdering Facility: [facility] Address: [address] [place] [address] Performed By: #### 2 4323-8 ####[facility] LABCLIA [id number] [place] [address] Urea nitrogen [Mass/Vol] 29 mg/dL High 9-24 [facility] Comment on above: Order Comment: Speci men Type: BLOOD SPECIMENOrdering Facility: [facility] Address: [place] [address] Performed By: #### 2 4323-8 ####[facility] LABCLIA [id number] [place] [address] CT Chest W contrast [place] IMPRESSION: 1. [...] any questions regarding this interpretation, please call [phone]. If you are unable to reach us at the number above, please feel free to contact [facility] eRadiology at [phone]. DIVISION OF RADIOLOGY * * *Final Report* * * DATE OF EXAM: Mar 14 2023 2:26PM [facility] 0539 - CT CHEST W IVCON / [...] No abnormality in the imaged upper abdomen. Archeologist Classical (topogram) images: No additional findings. DIVISION OF RADIOLOGY Provider, [facility] - 03/15/2023 * * *Final Report* * * DATE OF EXAM: Mar 14 2023 2:26PM [facility] 0539 - CT CHEST W IVCON / [...] No abnormality in the imaged upper abdomen. Archeologist Classical (topogram) images: No additional findings. IMPRESSION IMPRESSION: [...] any questions regarding this interpretation, please call [phone]. If you are unable to reach us at the number above, please feel free to contact [facility] eRadiology at [phone]. [facility] CT Chest W contrast IVOrdere d By: Ccf Provider on 03-15-[address] [facility] [address] Chest W contrast [place] Radiology Study observation (narrative) [facility] GLUCOSE, BLOOD (POC)on 01-29 Glucose [Mass/Vol] 124 mg/dL Abnormal 74 - 99 mg/dL [facility] Comment on above: Location:[facility], [address] [place] [address] , [place], [place], [facility] The Accu-Chek Inform II glucose meter has [...] Interpretation and review of laboratory results Abnormal [facility] PET+CT Guidance for localiza tion of tumor [...] any questions regarding this interpretation, please call [phone]. If you are unable to reach us at the number above, please feel free to [facility] at [phone]. DIVISION OF RADIOLOGY * * *Final Report* [...] SKELETON: There are no hypermetabolic osseous lesions. Archeologist Classical (topogram) images:No additional findings. -- DIVISION OF RADIOLOGY Roxanne Thomasjose marie [place] - 01/29/2023 * * *Final Report* * [...] SKELETON: There are no hypermetabolic osseous lesions. Archeologist Classical (topogram) images:No additional findings. -- IMPRESSION IMPRESSION: [...] any questions regarding this interpretation, please call [phone]. If you are unable to reach us at the number above, please feel free to contact [facility] eRadiology at [phone]. [facility] Radiology Study observation (narrative) 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-- W 18F-FDG IVOrdered By: Ccf Provider on 01-29-2023 [facility] Comprehensive metabolic 2000 panelon 10-08-2022 Albumin [Mass/Vol] 4.1 g/dL 3.9 - 4.9 g/dL [facility] ALP [Catalytic activity/Vol] 60 U/L 38 - 113 U/L [facility] ALT [Catalytic activity/Vol] 27 U/L 10 - 54 U/L [facility] Anion gap [Moles/Vol] 10 mmol/L 9 - 18 mmol/L [facility] AST [Catalytic activity/Vol] 23 U/L 14 - 40 U/L [facility] Bilirubin [Mass/Vol] 0.5 mg/dL 0.2 - 1 .3 mg/dL [facility] Calcium [Mass/Vol] 9.5 mg/dL 8.5 - 10. 2 mg/dL [facility] Chloride [Moles/Vol] 96 mmol/L Low 97 - 10 5 mmol/L [facility] CO2 [Moles/Vol] 29 mmol/L 22 - 30 mmol/L [facility] Creatinine [Mass/Vol] 0.96 mg/dL 0.73 - 1.22 mg/dL [facility] Estimated Glomerular Filtration Rate 81 mL/min/1.73m >=60 mL/min/1.73m [facility] Glucose [Mass/Vol] 105 mg/dL High 74 - 99 mg/dL [facility] Potassium [Moles/Vol] 4.2 mmol/L 3.7 - 5.1 mmol/L [facility] Protein [Mass/Vol] 6.8 g/dL 6.3 - 8.0 g/dL [facility] Sodium [Moles/Vol] 135 mmol/L Low 136 - 144 mmol/L [facility] Urea nitrogen [Mass/Vol] 22 mg/dL 9 - 24 mg/dL [facility] CBC W Auto Differential pane l (Bld)on 10-01-2022 Basophils (Bld) [#/Vol] <0.11 k/uL [facility] Basophils/100 WBC (Bld) 0.4 % [facility] Differential cell count method Nom (Bld) Auto [facility] Eosinophils (Bld) [#/Vol] 0.03 10*3/uL <0.46 k/uL [facility] Eosinophils/100 WBC (Bld) 1.3 % [facility] Erythrocyte distribution width (RBC) [Ratio] 13.2 % 11.5 - 15.0 % [facility] Hematocrit (Bld) [Volume fraction] 36.2 % Low 39.0 - 51.0 % [facility] Hemoglobin (Bld) [Mass/Vol] 12.3 g/dL Low 13.0 - 17.0 g/dL [facility] Immature granulocytes (Bld) [#/Vol] <0.10 k/uL [facility] Immature granulocytes/100 WBC (Bld) 0.4 % [facility] Lymphocytes (Bld) [#/Vol] 0.27 10*3/uL Low 1.00 - 4.00 k/uL [facility] Lymphocytes/100 WBC (Bld) 12.0 % [facility] MCH (RBC) [Entitic mass] 30.3 pg 26.0 - 34.0 pg [facility] MCHC (RBC) [Mass/Vol] 34.0 g/dL 30.5 - 36.0 g/dL [facility] MCV (RBC) [Entitic vol] 89.2 fL 80.0 - 100.0 fL [facility] Monocytes (Bld) [#/Vol] 0.23 10*3/uL <0.87 k/uL [facility] Monocytes/100 WBC (Bld) 10.2 % [facility] Neutrophils (Bld) [#/Vol] 1.70 10*3/uL 1.45 - 7.50 k/uL [facility] Neutrophils/100 WBC (Bld) 75.7 % [facility] Nucleated RBC (Bld) [#/Vol] <0.01 k/uL [facility] Nucleated RBC/100 WBC (Bld) [Ratio] 0.0 /100 WBC [facility] Platelet mean volume (Bld) [Entitic vol] 9.5 fL 9.0 - 12.7 fL [facility] Platelets (Bld) [#/Vol] 97 10*3/uL Low 150 - 400 k/uL [facility] RBC (Bld) [#/Vol] 4.06 10*6/uL Low 4.20 - 6.0 0 m/uL [facility] WBC (Bld) [#/Vol] 2.25 10*3/uL Low 3.70 - 11. 00 k/uL [facility] Comprehensive metabolic 2000 panelon 10-01-2022 Albumin [Mass/Vol] 4.2 g/dL 3.9 - 4.9 g/dL [facility] ALP [Catalytic activity/Vol] 69 U/L 38 - 113 U/L [facility] ALT [Catalytic activity/Vol] 21 U/L 10 - 54 U/L [facility] Anion gap [Moles/Vol] 11 mmol/L 9 - 18 mmol/L [facility] AST [Catalytic activity/Vol] 14 U/L 14 - 40 U/L [facility] Bilirubin [Mass/Vol] 0.6 mg/dL 0.2 - 1 .3 mg/dL [facility] Calcium [Mass/Vol] 9.7 mg/dL 8.5 - 10. 2 mg/dL [facility] Chloride [Moles/Vol] 99 mmol/L 97 - 10 5 mmol/L [facility] CO2 [Moles/Vol] 26 mmol/L 22 - 30 mmol/L [facility] Creatinine [Mass/Vol] 0.94 mg/dL 0.73 - 1.22 mg/dL [facility] Estimated Glomerular Filtration Rate 83 mL/min/1.73m >=60 mL/min/1.73m [facility] Glucose [Mass/Vol] 119 mg/dL High 74 - 99 mg/dL [facility] Potassium [Moles/Vol] 4.1 mmol/L 3.7 - 5.1 mmol/L [facility] Protein [Mass/Vol] 6.7 g/dL 6.3 - 8.0 g/dL [facility] Sodium [Moles/Vol] 136 mmol/L 136 - 144 mmol/L [facility] Urea nitrogen [Mass/Vol] 20 mg/dL 9 - 24 mg/dL [facility] CBC W Auto Differential pane l (Bld)on 09-17-2022 Basophils (Bld) [#/Vol] <0.11 k/uL [facility] Basophils/100 WBC (Bld) 0.2 % [facility] Differential cell count method Nom (Bld) Auto [facility] Eosinophils (Bld) [#/Vol] 0.04 10*3/uL <0.46 k/uL [facility] Eosinophils/100 WBC (Bld) 0.8 % [facility] Erythrocyte distribution width (RBC) [Ratio] 13.1 % 11.5 - 15.0 % [facility] Hematocrit (Bld) [Volume fraction] 39.8 % 39.0 - 51.0 % [facility] Hemoglobin (Bld) [Mass/Vol] 13.4 g/dL 13.0 - 17.0 g/dL [facility] Immature granulocytes (Bld) [#/Vol] <0.10 k/uL [facility] Immature granulocytes/100 WBC (Bld) 0.4 % [facility] Lymphocytes (Bld) [#/Vol] 0.40 10*3/uL Low 1.00 - 4.00 k/uL [facility] Lymphocytes/100 WBC (Bld) 7.8 % [facility] MCH (RBC) [Entitic mass] 30.3 pg 26.0 - 34.0 pg [facility] MCHC (RBC) [Mass/Vol] 33.7 g/dL 30.5 - 36.0 g/dL [facility] MCV (RBC) [Entitic vol] 90.0 fL 80.0 - 100.0 fL [facility] Monocytes (Bld) [#/Vol] 0.34 10*3/uL <0.87 k/uL [facility] Monocytes/100 WBC (Bld) 6.6 % [facility] Neutrophils (Bld) [#/Vol] 4.31 10*3/uL 1.45 - 7.50 k/uL [facility] Neutrophils/100 WBC (Bld) 84.2 % [facility] Nucleated RBC (Bld) [#/Vol] <0.01 k/uL [facility] Nucleated RBC/100 WBC (Bld) [Ratio] 0.0 /100 WBC [facility] Platelet mean volume (Bld) [Entitic vol] 9.4 fL 9.0 - 12.7 fL [facility] Platelets (Bld) [#/Vol] 198 10*3/uL 150 - 400 k/uL [facility] RBC (Bld) [#/Vol] 4.42 10*6/uL 4.20 - 6.0 0 m/uL [facility] WBC (Bld) [#/Vol] 5.12 10*3/uL 3.70 - 11. 00 k/uL [facility] Comprehensive metabolic 2000 panelon 09-17-2022 Albumin [Mass/Vol] 4.4 g/dL 3.9 - 4.9 g/dL [facility] ALP [Catalytic activity/Vol] 70 U/L 38 - 113 U/L [facility] ALT [Catalytic activity/Vol] 22 U/L 10 - 54 U/L [facility] Anion gap [Moles/Vol] 8 mmol/L Low 9 - 18 mmol/L [facility] AST [Catalytic activity/Vol] 15 U/L 14 - 40 U/L [facility] Bilirubin [Mass/Vol] 0.4 mg/dL 0.2 - 1 .3 mg/dL [facility] Calcium [Mass/Vol] 9.8 mg/dL 8.5 - 10. 2 mg/dL [facility] Chloride [Moles/Vol] 99 mmol/L 97 - 10 5 mmol/L [facility] CO2 [Moles/Vol] 28 mmol/L 22 - 30 mmol/L [facility] Creatinine [Mass/Vol] 0.83 mg/dL 0.73 - 1.22 mg/dL [facility] Estimated Glomerular Filtration Rate 90 mL/min/1.73m >=60 mL/min/1.73m [facility] Glucose [Mass/Vol] 125 mg/dL High 74 - 99 mg/dL [facility] Potassium [Moles/Vol] 4.1 mmol/L 3.7 - 5.1 mmol/L [facility] Protein [Mass/Vol] 6.8 g/dL 6.3 - 8.0 g/dL [facility] Sodium [Moles/Vol] 135 mmol/L Low 136 - 144 mmol/L [facility] Urea nitrogen [Mass/Vol] 28 mg/dL High 9 - 24 mg/dL [facility] PET+CT Guidance for localiza tion of [...] any questions regarding this interpretation, please call [phone]. If you are unable to reach us at the number above, please feel free to contact [facility] eRadiology at [phone]. DIVISION OF RADIOLOGY * * *Final Report* [...] age-related degenerative changes. No destructive osseous lesions. Archeologist Classical (topogram) images: No additional findings. DIVISION OF RADIOLOGY Provider, Roxanne Menardjose [facility] - 08/28/2022 * * *Final Report* [...] age-related degenerative changes. No destructive osseous lesions. Archeologist Classical (topogram) images: No additional findings. IMPRESSION IMPRESSION: [...] any questions regarding this interpretation, please call [phone]. If you are unable to reach us at the number above, please feel free to contact [facility] eRadiology at [phone]. 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-- W 18F-FDG [place] 08-27-2022 Radiology Study observation (narrative) [facility] CBC W Auto Differential pane l (Bld)on 08-23-2022 Basophils (Bld) [#/Vol] 0.05 10*3/uL <0.11 k/uL [facility] Basophils/100 WBC (Bld) 0.8 % [facility] Differential cell count method Nom (Bld) Auto [facility] Eosinophils (Bld) [#/Vol] 0.05 10*3/uL <0.46 k/uL [facility] Eosinophils/100 WBC (Bld) 0.8 % [facility] Erythrocyte distribution width (RBC) [Ratio] 13.2 % 11.5 - 15.0 % [facility] Hematocrit (Bld) [Volume fraction] 43.8 % 39.0 - 51.0 % [facility] Hemoglobin (Bld) [Mass/Vol] 14.7 g/dL 13.0 - 17.0 g/dL [facility] Immature granulocytes (Bld) [#/Vol] <0.10 k/uL [facility] Immature granulocytes/100 WBC (Bld) 0.3 % [facility] Lymphocytes (Bld) [#/Vol] 1.55 10*3/uL 1.00 - 4.00 k/uL [facility] Lymphocytes/100 WBC (Bld) 25.7 % [facility] MCH (RBC) [Entitic mass] 30.6 pg 26.0 - 34.0 pg [facility] MCHC (RBC) [Mass/Vol] 33.6 g/dL 30.5 - 36.0 g/dL [facility] MCV (RBC) [Entitic vol] 91.3 fL 80.0 - 100.0 fL [facility] Monocytes (Bld) [#/Vol] 0.51 10*3/uL <0.87 k/uL [facility] Monocytes/100 WBC (Bld) 8.5 % [facility] Neutrophils (Bld) [#/Vol] 3.85 10*3/uL 1.45 - 7.50 k/uL [facility] Neutrophils/100 WBC (Bld) 63.9 % [facility] Nucleated RBC (Bld) [#/Vol] <0.01 k/uL [facility] Nucleated RBC/100 WBC (Bld) [Ratio] 0.0 /100 WBC [facility] Platelet mean volume (Bld) [Entitic vol] 9.4 fL 9.0 - 12.7 fL [facility] Platelets (Bld) [#/Vol] 340 10*3/uL 150 - 400 k/uL [facility] RBC (Bld) [#/Vol] 4.80 10*6/uL 4.20 - 6.0 0 m/uL [facility] WBC (Bld) [#/Vol] 6.03 10*3/uL 3.70 - 11. 00 k/uL [facility] Comprehensive metabolic 2000 panelon 08-23-2022 Albumin [Mass/Vol] 4.6 g/dL 3.9 - 4.9 g/dL [facility] ALP [Catalytic activity/Vol] 66 U/L 38 - 113 U/L [facility] ALT [Catalytic activity/Vol] 16 U/L 10 - 54 U/L [facility] Anion gap [Moles/Vol] 8 mmol/L Low 9 - 18 mmol/L [facility] AST [Catalytic activity/Vol] 19 U/L 14 - 40 U/L [facility] Bilirubin [Mass/Vol] 0.5 mg/dL 0.2 - 1 .3 mg/dL [facility] Calcium [Mass/Vol] 10.0 mg/dL 8.5 - 10. 2 mg/dL [facility] Chloride [Moles/Vol] 102 mmol/L 97 - 10 5 mmol/L [facility] CO2 [Moles/Vol] 30 mmol/L 22 - 30 mmol/L [facility] Creatinine [Mass/Vol] 0.97 mg/dL 0.73 - 1.22 mg/dL [facility] Estimated Glomerular Filtration Rate 80 mL/min/1.73m >=60 mL/min/1.73m [facility] Glucose [Mass/Vol] 101 mg/dL High 74 - 99 mg/dL [facility] Potassium [Moles/Vol] 4.5 mmol/L 3.7 - 5.1 mmol/L [facility] Protein [Mass/Vol] 7.5 g/dL 6.3 - 8.0 g/dL [facility] Sodium [Moles/Vol] 140 mmol/L 136 - 144 mmol/L [facility] Urea nitrogen [Mass/Vol] 18 mg/dL 9 - 24 mg/dL [facility] POINT OF CARE GLUCOSEon 07-09 Glucose [Mass/Vol] 149 mg/dL Critically high 74-106 [facility] Comment on above: Performed By: #### P OCGLUC #### [facility] [address] [address] [address] 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 Correction, due 07/18/2025. Normal [facility] CBC AUTO DIFFon 07-27-2022 BASO # 0.0 103/ul Normal 0.0-0.1 [facility] Comment on above: Performed By: #### C BC #### [facility] [address] [place] [address] Dr. Mikayla Galan Basophils/100 WBC (Bld) 0.4 % Normal 0.2-2.0 [facility] Comment on above: Performed By: #### C BC #### [facility] [address] [place] [address] Dr. Mikayla Galan EO # 0.1 103/ul Normal 0.0-0.7 [facility] Comment on above: Performed By: #### C BC #### [facility] [address] [place] [address] Dr. Mikayla Galan Eosinophils/100 WBC (Bld) 1.5 % Normal 0.9-7.0 [facility] Comment on above: Performed By: #### C BC #### [facility] [address] [place] [address] Dr. Mikayla Galan Erythrocyte distribution width (RBC) [Ratio] 13.2 % Normal 11.0-15.0 [facility] Comment on above: Performed By: #### C BC #### [facility] [address] [place] [address] Dr. Mikayla Galan Hematocrit (Bld) [Volume fraction] 41.7 % Critically low 42.0-54.0 [facility] Comment on above: Performed By: #### C BC #### [facility] [address] [place] [address] Dr. Mikayla Galan Hemoglobin (Bld) [Mass/Vol] 13.9 g/dL Critically low 14.0-18.0 [facility] Comment on above: Performed By: #### C BC #### [facility] [address] [place] [address] Dr. Mikayla Galan IG # 0.02 10e3/ul Normal 0.00-0.03 [facility] Comment on above: Performed By: #### C BC #### [facility] [address] [place] [address] Dr. Mikayla Galan IG % 0.4 % Normal 0.0-0.5 [facility] Comment on above: Performed By: #### C BC #### [facility] [address] [place] [address] Dr. Mikayla Galan LYMPH # 1.1 103/ul Critically low 1.2-3.8 [facility] Comment on above: Performed By: #### C BC #### [facility] [address] [place] [address] Dr. Mikayla Galan Lymphocytes/100 WBC (Bld) 24.7 % Normal 20.5-60.0 [facility] Comment on above: Performed By: #### C BC #### [facility] [address] [place] [address] Dr. Mikayla Galan MANUAL DIFF REQ NO Normal [facility] Comment on above: Performed By: #### C BC #### [facility] [address] [place] [address] Dr. Mikayla Galan MCH (RBC) [Entitic mass] 30.5 pg Normal 25.9-34.0 [facility] Comment on above: Performed By: #### C BC #### [facility] [address] [place] [address] Dr. Mikayla Galan MCHC (RBC) [Mass/Vol] 33.3 g/dL Normal 29.9-35.2 [facility] Comment on above: Performed By: #### C BC #### [facility] [address] [place] [address] Dr. Mikayla Galan MCV (RBC) [Entitic vol] 91.4 fL Normal 80.0-94.0 [facility] Comment on above: Performed By: #### C BC #### [facility] [address] [place] [address] Dr. Mikayla Galan MONO # 0.4 103/ul Normal 0.3-0.8 [facility] Comment on above: Performed By: #### C BC #### [facility] [address] [place] [address] Dr. Mikayla Galan Monocytes/100 WBC (Bld) 8.4 % Normal 1.7-12.0 [facility] Rehabilitation Comment on above: Performed By: #### C BC #### [facility] [address] [place] [address] Dr. Mikayla Galan NEUT # 2.9 103/ul Normal 1.4-6.5 [facility] Comment on above: Performed By: #### C BC #### [facility] [address] [place] [address] Dr. Mikayla Galan Neutrophils/100 WBC (Bld) 64.6 % Normal 43.0-75.0 [facility] Comment on above: Performed By: #### C BC #### [facility] [address] [place] [address] Dr. Mikayla Galan Platelet mean volume (Bld) [Entitic vol] 9.5 fL Normal 9.5-13.5 [facility] Comment on above: Performed By: #### C BC #### [facility] [address] [place] [address] Dr. Mikayla Galan PLT 293 103/ul Normal 150-450 [facility] Comment on above: Performed By: #### C BC #### [facility] [address] [place] [address] Dr. Mikayla Galan RBC 4.56 106/ul Critically low 4.70-6.10 [facility] Comment on above: Performed By: #### C BC #### [facility] [address] [place] [address] Dr. Mikayla Galan WBC 4.5 103/ul Normal 4.0-11.0 [facility] Comment on above: Performed By: #### C BC #### [facility] [address] [place] [address] NECK ST W [...] CHAU JUNG Date: 2022-07-27 13:04 Normal [facility] Covid-19 PCR (CVDCHANNING HOME)on 07-09 SARS-CoV-2 (COVID-19) RNA IRIS+probe Ql (Unsp spec) Not detected Normal NOT DETECTED [facility] Comment on above: Result Comment: This test is not yet approved or cleared by the [place] FDA. When there are no FDA-approved or cleared tests available, and other criteria are met, FDA can make tests available under an emergency access mechanism called an Emergency Use Authorization (EUA). The EUA for this test is supported by the [employer] of Health and Human Service's (HHS's) declaration [...] SARS-CoV-2. Performed By: #### P OCGLUC #### [facility] [address] [place] [address] Dr. Mikayla Galan PROF CHEM 8 (BAS METB)on Anion gap [Moles/Vol] 10.2 mmol/L Normal [facility] Comment on above: Performed By: #### B MP #### [facility] [address] [place] [address] Dr. Mikayla Galan Calcium [Mass/Vol] 9.2 mg/dL Normal 8.5-10.1 [facility] [place] [facility] Comment on above: Performed By: #### B MP #### [facility] [address] [place] [address] Dr. Mikayla Galan Chloride [Moles/Vol] 103 mmol/L Normal 98-107 [facility] Comment on above: Performed By: #### B MP #### [facility] [address] [place] [address] Dr. Mikayla Galan CO2 [Moles/Vol] 31.3 mmol/L Normal 21.0-32.0 [facility] Comment on above: Performed By: #### B MP #### [facility] [address] [place] [address] Dr. Mikayla Galan Creatinine [Mass/Vol] 0.98 mg/dL Normal 0.70-1.30 [facility] Comment on above: Performed By: #### B MP #### [facility] [address] [place] [address] Dr. Mikayla Galan EGFR-AF KYRGYZ >60 Normal >=60 [facility] Comment on above: Performed By: #### B MP #### [facility] [address] [place] [address] Dr. Mikayla Galan EGFR-NON AF KYRGYZ >60 Normal >=60 [facility] Comment on above: Performed By: #### B MP #### [facility] [address] [place] [address] Dr. Mikayla Galan Glucose [Mass/Vol] 133 mg/dL Critically high 74-106 [facility] Comment on above: Performed By: #### B MP #### [facility] [address] [address] [address] Mikayla Galan Potassium [Moles/Vol] 4.5 mmol/L Normal 3.5-5.1 [facility] Comment on above: Performed By: #### B MP #### [facility] [address] [address] [address] Mikayla Galan Sodium [Moles/Vol] 140 mmol/L Normal 136-145 [facility] Comment on above: Performed By: #### B MP #### [facility] [address] [address] [address] Mikayla Galan Urea nitrogen [Mass/Vol] 21.0 mg/dL Critically high 7.0-18.0 [facility] Comment on above: Performed By: #### B MP #### [facility] [address] [address] [address] Mikayla Galan Urea nitrogen/Creatinine [Mass ratio] 21.4 mg/mg Normal [facility] Comment on above: Performed By: #### B MP #### [facility] [address] [place] [address] Dr. Mikayla Galan PROTIMEon 07-27-2022 INR Coag (PPP) [Relative time] 1.04 {INR} Normal [facility] Comment on above: Performed By: #### P T, PTT #### [facility] [address] [place] [address] Dr. Mikayla Galan INR GUIDELINES SEE BELOW Normal [facility] Comment on above: Result Comment: VANESSA RED INR: 2.0 - 3.0 CONDITIONS NOT LISTED BELOW 2.5 - 3.5 FOR PROSTHETIC HEART VALVE REPLACEMENT 2.5 - 3.5 RECURRENT THROMBOSIS Performed By: #### P T, PTT #### [facility] [address] [place] [address] Dr. Mikayla Galan PT Coag (PPP) [Time] 11.0 s Normal 9.0-11.6 [facility] Comment on above: Performed By: #### P T, PTT #### [facility] [address] [place], [place] [address] Dr. Mikayla Galan PTTon 07-27-2022 aPTT Coag (Bld) [Time] 28.6 s Normal 22.3-36.2 [facility] Comment on above: Performed By: #### P OCGLUC #### [facility] [address] [address] [address] Mikayla Galan Pathology Noteon 07-20-2022 Pathology Note [id number] .[id number]:127 Normal [facility] Outside Colonoscopyon 2022 Outside Colonoscopy [id number] .[id number]:127 Normal [facility] POINT OF CARE GLUCOSEon 07-08 Glucose [Mass/Vol] 94 mg/dL Normal 74-106 [facility] Comment on above: Performed By: #### P OCGLUC #### [facility] [address] [address] [address] Mikayla Galan Lab Reportson 07-12-2022 Lab Reports [id number] .[id number]:127 Normal [facility] Covid-19 PCR (CVDTB)on SARS-CoV-2 (COVID-19) RNA IRIS+probe Ql (Unsp spec) Not detected Normal NOT DETECTED [facility] Comment on above: Result Comment: This test is not yet approved or cleared by the [place] FDA. When there are no FDA-approved or cleared tests available, and other criteria are met, FDA can make tests available under an emergency access mechanism called an Emergency Use Authorization (EUA). The EUA for this test is supported by the [employer] of Health and Human Service's (HHS's) declaration [...] SARS-CoV-2. Performed By: #### P OCGLUC #### [facility] [address] [address] [address] Mikayla Galan Consent for Procedure/Surger yon 06-15-2022 Consent for Procedure/Surgery [id number] .[id number]:127 Normal [facility] US THYROIDon 06-11-2022 US THYROID EXAMINATION: US [...] by: QUANG JOHNSON Date: 2022-06-11 07:17 Normal [facility] Provider Letteron 05-15-2022 Provider Letter May 15, 2022 MAN[address] ROOT [address] [place] [id number] MANISH ROOT 1945 Dear Manish , We have been trying to reach you with no success. It is important that you return our call regarding your referral from Dr. Nelson upon receiving this letter. Also, at the time of your call, please provide us with your current information. Thank you for your prompt attention to this matter. Sincerely, General Surgery [phone] Normal [facility] CBC AUTO DIFFon 02-27-2022 BASO # 0.0 103/ul Normal 0.0-0.1 [facility] Comment on above: Performed By: #### C BC #### [facility] [address] [address] [address] Mikayla Galan Basophils/100 WBC (Bld) 0.6 % Normal 0.2-2.0 [facility] Comment on above: Performed By: #### C BC #### [facility] [address] [place] [address] Dr. Mikayla Galan EO # 0.1 103/ul Normal 0.0-0.7 [facility] Comment on above: Performed By: #### C BC #### [facility] [address] [place] [address] Dr. Mikayla Galan Eosinophils/100 WBC (Bld) 1.4 % Normal 0.9-7.0 [facility] Comment on above: Performed By: #### C BC #### [facility] [address] [place] [address] Dr. Mikayla Galan Erythrocyte distribution width (RBC) [Ratio] 12.6 % Normal 11.0-15.0 [facility] Comment on above: Performed By: #### C BC #### [facility] [address] [place] [address] Dr. Mikayla Galan Hematocrit (Bld) [Volume fraction] 41.8 % Critically low 42.0-54.0 [facility] Comment on above: Performed By: #### C BC #### [facility] [address] [place] [address] Dr. Mikayla Galan Hemoglobin (Bld) [Mass/Vol] 13.9 g/dL Critically low 14.0-18.0 [facility] Comment on above: Performed By: #### C BC #### [facility] [address] [place] [address] Dr. Mikayla Galan IG # 0.03 10e3/ul Normal 0.00-0.03 [facility] Comment on above: Performed By: #### C BC #### [facility] [address] [place] [address] Dr. Mikayla Galan IG % 0.6 % Critically high 0.0-0.5 [facility] Comment on above: Performed By: #### C BC #### [facility] [address] [place] [address] Dr. Mikayla Galan LYMPH # 1.0 103/ul Critically low 1.2-3.8 [facility] Comment on above: Performed By: #### C BC #### [facility] [address] [place] [address] Dr. Mikayla Galan Lymphocytes/100 WBC (Bld) 19.9 % Critically low 20.5-60.0 [facility] Comment on above: Performed By: #### C BC #### [facility] [address] [place] [address] Dr. Mikayla Galan MANUAL DIFF REQ NO Normal [facility] Comment on above: Performed By: #### C BC #### [facility] [address] [place] [address] Dr. Mikayla Galan MCH (RBC) [Entitic mass] 31.0 pg Normal 25.9-34.0 [facility] Comment on above: Performed By: #### C BC #### [facility] [address] [place] [address] Dr. Mikayla Galan MCHC (RBC) [Mass/Vol] 33.3 g/dL Normal 29.9-35.2 [facility] Comment on above: Performed By: #### C BC #### [facility] [address] [place] [address] Dr. Mikayla Galan MCV (RBC) [Entitic vol] 93.3 fL Normal 80.0-94.0 [facility] Comment on above: Performed By: #### C BC #### [facility] [address] [place] [address] Dr. Mikayla Galan MONO # 0.5 103/ul Normal 0.3-0.8 [facility] Comment on above: Performed By: #### C BC #### [facility] [address] [place] [address] Dr. Mikayla Galan Monocytes/100 WBC (Bld) 8.9 % Normal 1.7-12.0 [facility] Comment on above: Performed By: #### C BC #### [facility] [address] [place] [address] Dr. Mikayla Galan NEUT # 3.5 103/ul Normal 1.4-6.5 [facility] Comment on above: Performed By: #### C BC #### [facility] [address] [address] [address] Mikayla Galan Neutrophils/100 WBC (Bld) 68.6 % Normal 43.0-75.0 [facility] Comment on above: Performed By: #### C BC #### [facility] [address] [address] [address] Mikayla Galan Platelet mean volume (Bld) [Entitic vol] 9.6 fL Normal 9.5-13.5 [facility] Comment on above: Performed By: #### C BC #### [facility] [address] [place] [address] Dr. Mikayla Galan PLT 280 103/ul Normal 150-450 [facility] Comment on above: Performed By: #### C BC #### [facility] [address] [place] [address] Dr. Mikayla Galan RBC 4.48 106/ul Critically low 4.70-6.10 [facility] Comment on above: Performed By: #### C BC #### [facility] [address] [place] [address] Dr. Mikayla Galan WBC 5.1 103/ul Normal 4.0-11.0 [facility] Comment on above: Performed By: #### C BC #### [facility] [address] [place] [address] Dr. Mikayla Galan GLYCOHEMOGLOBIN A1Con 2021 ADA RECOMMENDATION SEE BELOW Normal [facility] Comment on above: Result Comment: ADA RECOMMENDED LIMIT 4.0 - 6.0 ADA THERAPEUTIC TARGET < 7.0 ACTION SUGGESTED > 7.0 Performed By: #### A 1C #### [facility] [address] [place] [address] Dr. Mikayla Galan Glucose [Mass/Vol] 183 mg/dL Normal [facility] Comment on above: Performed By: #### A 1C #### [facility] [address] [place] [address] Dr. Mikayla Galan HbA1c (Bld) [Mass fraction] 8.0 % Critically high 4.5-6.2 [facility] Comment on above: Performed By: #### A 1C #### [facility] [address] [place] [address] Dr. Mikayla Galan PROF 14(COMP METB)on 022 Albumin [Mass/Vol] 3.8 g/dL Normal 3.4-5.0 [facility] Comment on above: Performed By: #### C MP #### [facility] [address] [place] [address] Dr. Mikayla Galan Albumin/Globulin [Mass ratio] 1.2 {ratio} Normal [facility] Comment on above: Performed By: #### C MP #### [facility] [address] [place] [address] Dr. Mikayla Galan ALP [Catalytic activity/Vol] 111 U/L Normal 46-116 [facility] Comment on above: Performed By: #### C MP #### [facility] [address] [place] [address] Dr. Mikayla Galan ALT [Catalytic activity/Vol] 50 U/L Normal 16-63 [facility] Comment on above: Performed By: #### C MP #### [facility] [address] [place] [address] Dr. Mikayla Galan Anion gap [Moles/Vol] 11.5 mmol/L Normal [facility] Comment on above: Performed By: #### C MP #### [facility] [address] [place] [address] Dr. Mikayla Galan AST [Catalytic activity/Vol] 27 U/L Normal 15-37 [facility] Comment on above: Performed By: #### C MP #### [facility] [address] [place] [address] Dr. Mikayla Galan Bilirubin [Mass/Vol] 0.5 mg/dL Normal 0.2-1.0 [facility] Comment on above: Performed By: #### C MP #### [facility] [address] [place] [address] Dr. Mikayla Galan Calcium [Mass/Vol] 9.0 mg/dL Normal 8.5-10.1 [facility] Comment on above: Performed By: #### C MP #### [facility] [address] [place] [address] Dr. Mikayla Galan Chloride [Moles/Vol] 101 mmol/L Normal 98-107 [facility] Comment on above: Performed By: #### C MP #### [facility] [address] [place] [address] Dr. Mikayla Galan CO2 [Moles/Vol] 27.7 mmol/L Normal 21.0-32.0 [facility] Comment on above: Performed By: #### C MP #### [facility] [address] [place] [address] Dr. Mikayla Galan Creatinine [Mass/Vol] 1.17 mg/dL Normal 0.70-1.30 [facility] Comment on above: Performed By: #### C MP #### [facility] [address] [place] [address] Dr. Mikayla Galan EGFR-AF KYRGYZ >60 Normal >=60 [facility] Comment on above: Performed By: #### C MP #### [facility] [address] [place] [address] Dr. Mikayla Galan EGFR-NON AF KYRGYZ =60 Normal >=60 [facility] Comment on above: Performed By: #### C MP #### [facility] [address] [place] [address] Dr. Mikayla Galan Globulin (S) [Mass/Vol] 3.3 g/dL Normal [facility] Comment on above: Performed By: #### C MP #### [facility] [address] [place] [address] Dr. Mikayla Galan Glucose [Mass/Vol] 233 mg/dL Critically high 74-106 [facility] Comment on above: Performed By: #### C MP #### [facility] [address] [place] [address] Dr. Mikayla Galan Potassium [Moles/Vol] 4.2 mmol/L Normal 3.5-5.1 [facility] Comment on above: Performed By: #### C MP #### [facility] [address] [address] [address] Mikayla Galan Protein [Mass/Vol] 7.1 g/dL Normal 6.4-8.2 [facility] Comment on above: Performed By: #### C MP #### [facility] [address] [address] [address] Mikayla Galan Sodium [Moles/Vol] 136 mmol/L Normal 136-145 [facility] Comment on above: Performed By: #### C MP #### [facility] [address] [address] [address] Mikayla Galan Urea nitrogen [Mass/Vol] 15.0 mg/dL Normal 7.0-18.0 [facility] Comment on above: Performed By: #### C MP #### [facility] [address] [address] [address] Mikayla Galan Urea nitrogen/Creatinine [Mass ratio] 12.8 mg/mg Normal [facility] Comment on above: Performed By: #### C MP #### [facility] [address] [address] [address] Mikayla Galan Physician Referralon 022 Physician Referral [id number]:127 Normal [facility] Vital Signs Date Time Vital Sign Value Performing Clinician Facility 08-31-2024 [id number] Body height 170.2 cm Mason Johnson MD Work Phone: [facility] 08-31-2024 09:26-0500 Body mass index (BMI) [Ratio] 30.54 kg/m2 Mason Johnson MD Work Phone: [facility] 08-31-2024 09:26-0500 Body weight 88.45 kg Mason Johnson MD Work Phone: [facility] 08-31-2024 09:26-0500 Diastolic blood pressure 74 mm[Hg] Mason Johnson MD Work Phone: [facility] 08-31-2024 09:26-0500 Heart rate 74 /min Mason Johnson MD Work Phone: [facility] 08-31-2024 09:26-0500 SaO2% (BldA) [Mass fraction] 98 % Mason Johnson MD Work Phone: [facility] 08-31-2024 09:26-0500 Systolic blood pressure 136 mm[Hg] Mason Johnson MD Work Phone: [facility] 07-21-2024 14:14-0500 Body height 170.2 cm Serene Morales MD Work Phone: [facility] 07-21-2024 14:14-0500 Body mass index (BMI) [Ratio] 29.91 kg/m2 Serene Morales MD Work Phone: [facility] 07-21-2024 14:14-0500 Body weight 86.64 kg Serene Morales MD Work Phone: [facility] 07-21-2024 14:14-0500 Diastolic blood pressure 74 mm[Hg] Serene Morales MD Work Phone: [facility] 07-21-2024 14:14-0500 Heart rate 57 /min Serene Morales MD Work Phone: [facility] 07-21-2024 14:14-0500 Systolic blood pressure 148 mm[Hg] Serene Morales MD Work Phone: [facility] 06-16-2024 09:02-0500 Body height 170.2 cm eSrene Morales MD Work Phone: [facility] 06-16-2024 09:02-0500 Body mass index (BMI) [Ratio] 29.91 kg/m2 Serene Morales MD Work Phone: [facility] 06-16-2024 09:02-0500 Body weight 86.64 kg Serene Morales MD Work Phone: [facility] 06-16-2024 09:02-0500 Diastolic blood pressure 71 mm[Hg] Serene Morales MD Work Phone: [facility] 06-16-2024 09:02-0500 Systolic blood pressure 142 mm[Hg] Serene Morales MD Work Phone: [facility] 05-19-2024 08:57-0500 Body height 170.2 cm Serene Morales MD Work Phone: [facility] 05-19-2024 08:57-0500 Body mass index (BMI) [Ratio] 29.91 kg/m2 Serene Morales MD Work Phone: [facility] 05-19-2024 08:57-0500 Body weight 86.64 kg Serene Morales MD Work Phone: [facility] 05-19-2024 08:57-0500 Diastolic blood pressure 62 mm[Hg] Serene Morales MD Work Phone: [facility] 05-19-2024 08:57-0500 Systolic blood pressure 130 mm[Hg] Serene Morales MD Work Phone: [facility] 05-06-2024 15:06-0400 Body height 166.9 cm John England MD Work Phone: [facility] 05-06-2024 15:06-0400 Body mass index (BMI) [Ratio] 31.12 kg/m2 John England MD Work Phone: [facility] 05-06-2024 15:06-0400 Body temperature 97.81 [degF] John England MD Work Phone: [facility] 05-06-2024 15:06-0400 Body weight 86.7 kg John England MD Work Phone: [facility] 05-06-2024 15:06-0400 Diastolic blood pressure 73 mm[Hg] John England MD Work Phone: [facility] 05-06-2024 15:06-0400 Heart rate 60 /min John England MD Work Phone: [facility] 05-06-2024 15:06-0400 Respiratory rate 18 /min John England MD Work Phone: [facility] 05-06-2024 15:06-0400 SaO2% (BldA) [Mass fraction] 98 % John England MD Work Phone: [facility] 05-06-2024 15:06-0400 Systolic blood pressure 122 mm[Hg] John England MD Work Phone: [facility] 05-06-2024 14:36-0400 Body mass index (BMI) [Ratio] 31.12 kg/m2 BARRON Feliz MD Work Phone: [facility] 05-06-2024 14:36-0400 Body temperature 97.81 [degF] BARRON Feliz MD Work Phone: [facility] 05-06-2024 14:36-0400 Body weight 86.7 kg BARRON Feliz MD Work Phone: [facility] 05-06-2024 14:36-0400 Diastolic blood pressure 73 mm[Hg] BARRON Feliz MD Work Phone: [facility] 05-06-2024 14:36-0400 Heart rate 60 /min BARRON Feliz MD Work Phone: [facility] 05-06-2024 14:36-0400 Respiratory rate 18 /min BARRON Feliz MD Work Phone: [facility] 05-06-2024 14:36-0400 SaO2% (BldA) [Mass fraction] 98 % BARRON Feliz MD Work Phone: [facility] 05-06-2024 14:36-0400 Systolic blood pressure 122 mm[Hg] BARRON Feliz MD Work Phone: [facility] 04-30-2024 08:51-0400 Body height 170.2 cm Mason Johnson MD Work Phone: [facility] 04-30-2024 08:51-0400 Body mass index (BMI) [Ratio] 30.23 kg/m2 Maosn Johnson MD Work Phone: [facility] 04-30-2024 08:51-0400 Body weight 87.54 kg Mason Johnson MD Work Phone: [facility] 04-30-2024 08:51-0400 Diastolic blood pressure 80 mm[Hg] Mason Johnson MD Work Phone: [facility] 04-30-2024 08:51-0400 Heart rate 63 /min Mason Johnson MD Work Phone: [facility] 04-30-2024 08:51-0400 SaO2% (BldA) [Mass fraction] 100 % Mason Johnson MD Work Phone: [facility] 04-30-2024 08:51-0400 Systolic blood pressure 134 mm[Hg] Mason Johnson MD Work Phone: [facility] 04-21-2024 09:17-0400 Body height 170.2 cm Serene Morales MD Work Phone: [facility] 04-21-2024 09:17-0400 Body mass index (BMI) [Ratio] 30.38 kg/m2 Serene Morales MD Work Phone: [facility] 04-21-2024 09:17-0400 Body weight 88 kg Serene Morales MD Work Phone: [facility] 04-21-2024 09:17-0400 Diastolic blood pressure 73 mm[Hg] Serene Morales MD Work Phone: [facility] 04-21-2024 09:17-0400 Systolic blood pressure 173 mm[Hg] Serene Morales MD Work Phone: [facility] 04-07-2024 12:09-0400 Body height 170.18 cm [facility] 04-07-2024 12:09-0400 Body mass index (BMI) [Ratio] 30.1 kg/m2 [facility] 04-07-2024 12:09-0400 Body temperature 97.3 [degF] [facility] 04-07-2024 12:09-0400 Body weight 87.2 kg [facility] 04-07-2024 12:09-0400 Diastolic blood pressure 72 mm[Hg] [facility] 04-07-2024 12:09-0400 Heart rate 63 /min [facility] 04-07-2024 12:09-0400 Respiratory rate 18 /min [facility] 04-07-2024 12:09-0400 SaO2% (BldA) [Mass fraction] 97 % [facility] 04-07-2024 12:09-0400 Systolic blood pressure 137 mm[Hg] [facility] 03-24-2024 08:59-0400 Body height 170.2 cm Serene Morales MD Work Phone: [facility] 03-24-2024 08:59-0400 Body mass index (BMI) [Ratio] 29.6 kg/m2 Serene Morales MD Work Phone: [facility] 03-24-2024 08:59-0400 Body weight 85.73 kg Serene Morales MD Work Phone: [facility] 03-24-2024 08:59-0400 Diastolic blood pressure 74 mm[Hg] Serene Morales MD Work Phone: [facility] 03-24-2024 08:59-0400 Systolic blood pressure 157 mm[Hg] Serene Morales MD Work Phone: [facility] 02-25-2024 09:06-0400 Body height 170.2 cm Serene Morales MD Work Phone: [facility] 02-25-2024 09:06-0400 Body mass index (BMI) [Ratio] 29.91 kg/m2 Serene Morales MD Work Phone: [facility] 02-25-2024 09:06-0400 Body weight 86.64 kg Serene Morales MD Work Phone: [facility] 02-25-2024 09:06-0400 Diastolic blood pressure 96 mm[Hg] Serene Morales MD Work Phone: [facility] 02-25-2024 09:06-0400 Systolic blood pressure 193 mm[Hg] Serene Morales MD Work Phone: [facility] 01-14-2024 13:29-0400 Body height 167.64 cm [facility] 01-14-2024 13:29-0400 Body mass index (BMI) [Ratio] 30.5 kg/m2 [facility] 01-14-2024 13:29-0400 Body temperature 97.4 [degF] [facility] 01-14-2024 13:29-0400 Body weight 85.89 kg [facility] 01-14-2024 13:29-0400 Diastolic blood pressure 70 mm[Hg] [facility] 01-14-2024 13:29-0400 Heart rate 66 /min [facility] 01-14-2024 13:29-0400 Respiratory rate 18 /min [facility] 01-14-2024 13:29-0400 SaO2% (BldA) [Mass fraction] 92 % [facility] 01-14-2024 13:29-0400 Systolic blood pressure 112 mm[Hg] [facility] 11-06-2023 09:51-0400 Body mass index (BMI) [Ratio] 31.73 kg/m2 BARRON Feliz MD Work Phone: [facility] 11-06-2023 09:51-0400 Body temperature 97.11 [degF] BARRON Feliz MD Work Phone: [facility] 11-06-2023 09:51-0400 Body weight 88.4 kg BARRON Feliz MD Work Phone: [facility] 11-06-2023 09:51-0400 Diastolic blood pressure 77 mm[Hg] BARRON Feliz MD Work Phone: [facility] 11-06-2023 09:51-0400 Heart rate 58 /min BARRON Feliz MD Work Phone: [facility] 11-06-2023 09:51-0400 Respiratory rate 16 /min BARRON Feliz MD Work Phone: [facility] 11-06-2023 09:51-0400 SaO2% (BldA) [Mass fraction] 99 % BARRON Feliz MD Work Phone: [facility] 11-06-2023 09:51-0400 Systolic blood pressure 163 mm[Hg] BARRON Feliz MD Work Phone: [facility] 10-23-2023 10:56-0400 Body height 166.9 cm John England MD Work Phone: [facility] 10-23-2023 10:56-0400 Body temperature 97.81 [degF] John England MD Work Phone: [facility] 10-23-2023 10:56-0400 Body weight 87.5 kg John England MD Work Phone: [facility] 10-23-2023 10:56-0400 Diastolic blood pressure 70 mm[Hg] John England MD Work Phone: [facility] 10-23-2023 10:56-0400 Heart rate 54 /min John England MD Work Phone: [facility] 10-23-2023 10:56-0400 Respiratory rate 16 /min John England MD Work Phone: [facility] 10-23-2023 10:56-0400 SaO2% (BldA) [Mass fraction] 98 % John England MD Work Phone: [facility] 10-23-2023 10:56-0400 Systolic blood pressure 144 mm[Hg] John England MD Work Phone: [facility] 05-08-2023 11:14-0400 Body temperature 97.11 [degF] BARRON Feliz MD Work Phone: [facility] 05-08-2023 11:14-0400 Body weight 80.2 kg BARRON Feliz MD Work Phone: [facility] 05-08-2023 11:14-0400 Diastolic blood pressure 104 mm[Hg] BARRON Feliz MD Work Phone: [facility] 05-08-2023 11:14-0400 Heart rate 58 /min BARRON Feliz MD Work Phone: [facility] 05-08-2023 11:14-0400 Respiratory rate 16 /min BARRON Feliz MD Work Phone: [facility] 05-08-2023 11:14-0400 SaO2% (BldA) [Mass fraction] 98 % BARRON Feliz MD Work Phone: [facility] 05-08-2023 11:14-0400 Systolic blood pressure 168 mm[Hg] BARRON Feliz MD Work Phone: [facility] 03-20-2023 12:55-0400 Body height 166.9 cm John England MD Work Phone: [facility] 03-20-2023 12:55-0400 Body temperature 97.9 [degF] John England MD Work Phone: [facility] 03-20-2023 12:55-0400 Body weight 79.92 kg John England MD Work Phone: [facility] 03-20-2023 12:55-0400 Diastolic blood pressure 65 mm[Hg] John England MD Work Phone: [facility] 03-20-2023 12:55-0400 Heart rate 59 /min John England MD Work Phone: [facility] 03-20-2023 12:55-0400 Respiratory rate 16 /min John England MD Work Phone: [facility] 03-20-2023 12:55-0400 SaO2% (BldA) [Mass fraction] 98 % John England MD Work Phone: [facility] 03-20-2023 12:55-0400 Systolic blood pressure 139 mm[Hg] John England MD Work Phone: [facility] 02-06-2023 11:59-0400 Body temperature 97.3 [degF] BARRON Feliz MD Work Phone: [facility] 02-06-2023 11:59-0400 Body weight 80.74 kg BARRON Feliz MD Work Phone: [facility] 02-06-2023 11:59-0400 Diastolic blood pressure 67 mm[Hg] BARRON Feliz MD Work Phone: [facility] 02-06-2023 11:59-0400 Heart rate 56 /min BARRON Feliz MD Work Phone: [facility] 02-06-2023 11:59-0400 Respiratory rate 16 /min BARRON Feliz MD Work Phone: [facility] 02-06-2023 11:59-0400 Systolic blood pressure 142 mm[Hg] BARRON Feliz MD Work Phone: [facility] 02-06-2023 11:29-0400 Body height 166.9 cm John England MD Work Phone: [facility] 02-06-2023 11:29-0400 Body temperature 97.3 [degF] John England MD Work Phone: [facility] 02-06-2023 11:29-0400 Body weight 80.92 kg John England MD Work Phone: [facility] 02-06-2023 11:29-0400 Diastolic blood pressure 67 mm[Hg] John England MD Work Phone: [facility] 02-06-2023 11:29-0400 Heart rate 56 /min John England MD Work Phone: [facility] 02-06-2023 11:29-0400 Respiratory rate 16 /min John England MD Work Phone: [facility] 02-06-2023 11:29-0400 SaO2% (BldA) [Mass fraction] 98 % John England MD Work Phone: [facility] 02-06-2023 11:29-0400 Systolic blood pressure 142 mm[Hg] John England MD Work Phone: [facility] 11-28-2022 14:37-0400 Body temperature 96.69 [degF] BARRON Feliz MD Work Phone: [facility] 11-28-2022 14:37-0400 Body weight 78.47 kg BARRON Feliz MD Work Phone: [facility] 11-28-2022 14:37-0400 Diastolic blood pressure 69 mm[Hg] BARRON Feliz MD Work Phone: [facility] 11-28-2022 14:37-0400 Heart rate 66 /min BARRON Feliz MD Work Phone: [facility] 11-28-2022 14:37-0400 Respiratory rate 18 /min BARRON Feliz MD Work Phone: [facility] 11-28-2022 14:37-0400 SaO2% (BldA) [Mass fraction] 97 % BARRON Feliz MD Work Phone: [facility] 11-28-2022 14:37-0400 Systolic blood pressure 165 mm[Hg] BARRON Feliz MD Work Phone: [facility] 11-07-2022 09:21-0400 Body height 166.9 cm John England MD Work Phone: [facility] 11-07-2022 09:21-0400 Body temperature 97.5 [degF] John England MD Work Phone: [facility] 11-07-2022 09:21-0400 Body weight 78.11 kg John England MD Work Phone: [facility] 11-07-2022 09:21-0400 Diastolic blood pressure 66 mm[Hg] John England MD Work Phone: [facility] 11-07-2022 09:21-0400 Heart rate 58 /min John England MD Work Phone: [facility] 11-07-2022 09:21-0400 Respiratory rate 16 /min John England MD Work Phone: [facility] 11-07-2022 09:21-0400 SaO2% (BldA) [Mass fraction] 100 % John England MD Work Phone: [facility] 11-07-2022 09:21-0400 Systolic blood pressure 129 mm[Hg] John England MD Work Phone: [facility] 10-31-2022 14:05-0400 Body height 166.9 cm Maryam Hodgson APRN.MILLWRIGHT HELPER Work Phone: [facility] 10-31-2022 14:05-0400 Body temperature 97.5 [degF] Maryam Hodgson APRN.MILLWRIGHT HELPER Work Phone: [facility] 10-31-2022 14:05-0400 Body weight 78.2 kg Maryam Hodgson APRN.MILLWRIGHT HELPER Work Phone: [facility] 10-31-2022 14:05-0400 Diastolic blood pressure 58 mm[Hg] Maryam Hodgson [employer]TER.MILLWRIGHT HELPER Work Phone: [facility] 10-31-2022 14:05-0400 Heart rate 67 /min Maryam Hodgson APRN.MILLWRIGHT HELPER Work Phone: [facility] 10-31-2022 14:05-0400 Respiratory rate 16 /min Maryam Hodgson APRN.MILLWRIGHT HELPER Work Phone: [facility] 10-31-2022 14:05-0400 SaO2% (BldA) [Mass fraction] 98 % Maryam Hodgson APRN.MILLWRIGHT HELPER Work Phone: [facility] 10-31-2022 14:05-0400 Systolic blood pressure 120 mm[Hg] Maryam Hodgson APRN.MILLWRIGHT HELPER Work Phone: [facility] 10-25-2022 09:51-0400 Body height 166.9 cm Maryam Hodgson APRN.MILLWRIGHT HELPER Work Phone: [facility] 10-25-2022 09:51-0400 Body temperature 97 [degF] Maryam Hodgson [employer] CON[employer]TER.MILLWRIGHT HELPER Work Phone: [facility] 10-25-2022 09:51-0400 Body weight 79.29 kg Maryam Hodgson APRN.MILLWRIGHT HELPER Work Phone: [facility] 10-25-2022 09:51-0400 Diastolic blood pressure 64 mm[Hg] Maryam Hodgson APRN.MILLWRIGHT HELPER Work Phone: [facility] 10-25-2022 09:51-0400 Heart rate 63 /min Maryam Hodgson APRN.MILLWRIGHT HELPER Work Phone: [facility] 10-25-2022 09:51-0400 Respiratory rate 16 /min Maryam Hodgson APRN.MILLWRIGHT HELPER Work Phone: [facility] 10-25-2022 09:51-0400 SaO2% (BldA) [Mass fraction] 99 % Maryam Hodgson APRN.MILLWRIGHT HELPER Work Phone: [facility] 10-25-2022 09:51-0400 Systolic blood pressure 135 mm[Hg] Maryam Hodgson APRN.MILLWRIGHT HELPER Work Phone: [facility] 10-19-2022 09:21-0400 Body height 166.9 cm John England MD Work Phone: [facility] 10-19-2022 09:21-0400 Body temperature 97.11 [degF] John England MD Work Phone: [facility] 10-19-2022 09:21-0400 Body weight 78.74 kg John England MD Work Phone: [facility] 10-19-2022 09:21-0400 Diastolic blood pressure 64 mm[Hg] John England MD Work Phone: [facility] 10-19-2022 09:21-0400 Heart rate 56 /min John England MD Work Phone: [facility] 10-19-2022 09:21-0400 Respiratory rate 16 /min John England MD Work Phone: [facility] 10-19-2022 09:21-0400 SaO2% (BldA) [Mass fraction] 98 % John England MD Work Phone: [facility] 10-19-2022 09:21-0400 Systolic blood pressure 129 mm[Hg] John England MD Work Phone: [facility] 10-15-2022 10:40-0400 Body temperature 97.39 [degF] BARRON Feliz MD Work Phone: [facility] 10-15-2022 10:40-0400 Body weight 78.02 kg BARRON Feliz MD Work Phone: [facility] 10-15-2022 10:40-0400 Diastolic blood pressure 79 mm[Hg] BARRON Feliz MD Work Phone: [facility] 10-15-2022 10:40-0400 Heart rate 83 /min BARRON Feliz MD Work Phone: [facility] 10-15-2022 10:40-0400 Respiratory rate 16 /min BARRON Feliz MD Work Phone: [facility] 10-15-2022 10:40-0400 SaO2% (BldA) [Mass fraction] 100 % BARRON Feliz MD Work Phone: [facility] 10-15-2022 10:40-0400 Systolic blood pressure 126 mm[Hg] BARRON Feliz MD Work Phone: [facility] 10-08-2022 11:07-0400 Body temperature 98.2 [degF] Chair Jose Work Phone: [facility] 10-08-2022 11:07-0400 Diastolic blood pressure 76 mm[Hg] Chair Jose Work Phone: [facility] 10-08-2022 11:07-0400 Heart rate 70 /min Chair Jose Work Phone: [facility] 10-08-2022 11:07-0400 Respiratory rate 18 /min Chair Jose Work Phone: [facility] 10-08-2022 11:07-0400 SaO2% (BldA) [Mass fraction] 99 % Chair Jose Work Phone: [facility] 10-08-2022 11:07-0400 Systolic blood pressure 129 mm[Hg] Chair Jose Work Phone: [facility] 10-08-2022 10:48-0400 Body temperature 97.2 [degF] BARRON Feliz MD Work Phone: [facility] 10-08-2022 10:48-0400 Body weight 79.65 kg BARRON Feliz MD Work Phone: [facility] 10-08-2022 10:48-0400 Diastolic blood pressure 80 mm[Hg] BARRON Feliz MD Work Phone: [facility] 10-08-2022 10:48-0400 Heart rate 67 /min BARRON Feliz MD Work Phone: [facility] 10-08-2022 10:48-0400 Respiratory rate 16 /min BARRON Feliz MD Work Phone: [facility] 10-08-2022 10:48-0400 SaO2% (BldA) [Mass fraction] 99 % BARRON Feliz MD Work Phone: [facility] 10-08-2022 10:48-0400 Systolic blood pressure 145 mm[Hg] BARRON Feliz MD Work Phone: [facility] 10-01-2022 11:40-0400 Body height 166.9 cm Maryam Hodgson APRN.MILLWRIGHT HELPER Work Phone: [facility] 10-01-2022 11:40-0400 Body temperature 96.91 [degF] Maryam Hodgson APRN.MILLWRIGHT HELPER Work Phone: [facility] 10-01-2022 11:40-0400 Body weight 80.29 kg Maryam Hodgson APRN.MILLWRIGHT HELPER Work Phone: [facility] 10-01-2022 11:40-0400 Diastolic blood pressure 78 mm[Hg] Maryam Hodgson APRN.MILLWRIGHT HELPER Work Phone: [facility] 10-01-2022 11:40-0400 Heart rate 74 /min Maryam Hodgson APRN.MILLWRIGHT HELPER Work Phone: [facility] 10-01-2022 11:40-0400 Respiratory rate 16 /min Maryam Hodgson APRN.MILLWRIGHT HELPER Work Phone: [facility] 10-01-2022 11:40-0400 SaO2% (BldA) [Mass fraction] 99 % Maryam Hodgson APRN.MILLWRIGHT HELPER Work Phone: [facility] 10-01-2022 11:40-0400 Systolic blood pressure 129 mm[Hg] Maryam Hodgson APRN.MILLWRIGHT HELPER Work Phone: [facility] 10-01-2022 10:47-0400 Body temperature 96.91 [degF] BARRON Feliz MD Work Phone: [facility] 10-01-2022 10:47-0400 Body weight 80.65 kg BARRON Feliz MD Work Phone: [facility] 10-01-2022 10:47-0400 Diastolic blood pressure 78 mm[Hg] BARRON Feliz MD Work Phone: [facility] 10-01-2022 10:47-0400 Heart rate 74 /min BARRON Feliz MD Work Phone: [facility] 10-01-2022 10:47-0400 Respiratory rate 16 /min BARRON Feliz MD Work Phone: [facility] 10-01-2022 10:47-0400 SaO2% (BldA) [Mass fraction] 99 % BARRON Feliz MD Work Phone: [facility] 10-01-2022 10:47-0400 Systolic blood pressure 129 mm[Hg] BARRON Feliz MD Work Phone: [facility] 09-24-2022 10:40-0400 Body temperature 97.59 [degF] BARRON Feliz MD Work Phone: [facility] 09-24-2022 10:40-0400 Body weight 83.46 kg BARRON Feliz MD Work Phone: [facility] 09-24-2022 10:40-0400 Diastolic blood pressure 68 mm[Hg] BARRON Feliz MD Work Phone: [facility] 09-24-2022 10:40-0400 Heart rate 83 /min BARRON Feliz MD Work Phone: [facility] 09-24-2022 10:40-0400 Respiratory rate 18 /min BARRON Feliz MD Work Phone: [facility] 09-24-2022 10:40-0400 SaO2% (BldA) [Mass fraction] 98 % BARRON Feliz MD Work Phone: [facility] 09-24-2022 10:40-0400 Systolic blood pressure 133 mm[Hg] BARRON Feliz MD Work Phone: [facility] 09-17-2022 11:03-0400 Body temperature 97.7 [degF] BARRON Feliz MD Work Phone: [facility] 09-17-2022 11:03-0400 Body weight 84.82 kg BARRON Feliz MD Work Phone: [facility] 09-17-2022 11:03-0400 Diastolic blood pressure 73 mm[Hg] BARRON Feliz MD Work Phone: [facility] 09-17-2022 11:03-0400 Heart rate 75 /min BARRON Feliz MD Work Phone: [facility] 09-17-2022 11:03-0400 Respiratory rate 18 /min BARRON Feliz MD Work Phone: [facility] 09-17-2022 11:03-0400 SaO2% (BldA) [Mass fraction] 95 % BARRON Feliz MD Work Phone: [facility] 09-17-2022 11:03-0400 Systolic blood pressure 167 mm[Hg] BARRON Feliz MD Work Phone: [facility] 09-10-2022 11:17-0500 Body temperature 97.81 [degF] BARRON Feliz MD Work Phone: [facility] 09-10-2022 11:17-0500 Body weight 85.73 kg BARRON Feliz MD Work Phone: [facility] 09-10-2022 11:17-0500 Diastolic blood pressure 81 mm[Hg] BARRON Feliz MD Work Phone: [facility] 09-10-2022 11:17-0500 Heart rate 72 /min BARRON Feliz MD Work Phone: [facility] 09-10-2022 11:17-0500 Respiratory rate 18 /min BARRON Feliz MD Work Phone: [facility] 09-10-2022 11:17-0500 SaO2% (BldA) [Mass fraction] 97 % BARRON Feliz MD Work Phone: [facility] 09-10-2022 11:17-0500 Systolic blood pressure 150 mm[Hg] BARRON Feliz MD Work Phone: [facility] 09-03-2022 11:09-0500 Body height 166.9 cm John England MD Work Phone: [facility] 09-03-2022 11:09-0500 Body temperature 97 [degF] John England MD Work Phone: [facility] 09-03-2022 11:09-0500 Body weight 83.46 kg John England MD Work Phone: [facility] 09-03-2022 11:09-0500 Diastolic blood pressure 74 mm[Hg] John England MD Work Phone: [facility] 09-03-2022 11:09-0500 Heart rate 70 /min John England MD Work Phone: [facility] 09-03-2022 11:09-0500 Respiratory rate 16 /min John England MD Work Phone: [facility] 09-03-2022 11:09-0500 SaO2% (BldA) [Mass fraction] 97 % John England MD Work Phone: [facility] 09-03-2022 11:09-0500 Systolic blood pressure 149 mm[Hg] John England MD Work Phone: [facility] 09-03-2022 09:57-0500 Body temperature 97 [degF] BARRON Feliz MD Work Phone: [facility] 09-03-2022 09:57-0500 Body weight 81.19 kg BARRON Feliz MD Work Phone: [facility] 09-03-2022 09:57-0500 Diastolic blood pressure 74 mm[Hg] BARRON Feliz MD Work Phone: [facility] 09-03-2022 09:57-0500 Heart rate 70 /min BARRON Feliz MD Work Phone: [facility] 09-03-2022 09:57-0500 Respiratory rate 16 /min BARRON Feliz MD Work Phone: [facility] 09-03-2022 09:57-0500 SaO2% (BldA) [Mass fraction] 97 % BARRON Feliz MD Work Phone: [facility] 09-03-2022 09:57-0500 Systolic blood pressure 149 mm[Hg] BARRON Feliz MD Work Phone: [facility] 08-16-2022 15:39-0500 Body height 168.9 cm John England MD Work Phone: [facility] 08-16-2022 15:39-0500 Body temperature 97.7 [degF] John England MD Work Phone: [facility] 08-16-2022 15:39-0500 Body weight 84.73 kg John England MD Work Phone: [facility] 08-16-2022 15:39-0500 Diastolic blood pressure 73 mm[Hg] John England MD Work Phone: [facility] 08-16-2022 15:39-0500 Heart rate 64 /min John England MD Work Phone: [facility] 08-16-2022 15:39-0500 Respiratory rate 16 /min John England MD Work Phone: [facility] 08-16-2022 15:39-0500 SaO2% (BldA) [Mass fraction] 97 % John England MD Work Phone: [facility] 08-16-2022 15:39-0500 Systolic blood pressure 156 mm[Hg] John England MD Work Phone: [facility] 08-14-2022 10:01-0500 Body height 168.9 cm BARRON Feliz MD Work Phone: [facility] 08-14-2022 10:01-0500 Body temperature 97.7 [degF] BARRON Feliz MD Work Phone: [facility] 08-14-2022 10:01-0500 Body weight 84.82 kg BARRON Feliz MD Work Phone: [facility] 08-14-2022 10:01-0500 Diastolic blood pressure 90 mm[Hg] BARRON Feliz MD Work Phone: [facility] 08-14-2022 10:01-0500 Heart rate 58 /min BARRON Feliz MD Work Phone: [facility] 08-14-2022 10:01-0500 Respiratory rate 16 /min BARRON Feliz MD Work Phone: [facility] 08-14-2022 10:01-0500 SaO2% (BldA) [Mass fraction] 99 % BARRON Feliz MD Work Phone: [facility] 08-14-2022 10:01-0500 Systolic blood pressure 167 mm[Hg] BARRON Feliz MD Work Phone: [facility] 06-13-2022 14:55-0500 Blood Pressure Location Renea PARTIDA [facility] [place] 06-13-2022 14:55-0500 Diastolic blood pressure 60 mm[Hg] Renea PARTIDA [facility] [place] 06-13-2022 14:55-0500 Heart rate 60 /min Renea PARTIDA [facility] [place] 06-13-2022 14:55-0500 Respiratory rate 16 /min Renea PARTIDA [facility] [place] 06-13-2022 14:55-0500 Systolic blood pressure 120 mm[Hg] Renea PARTIDA [facility] [place] Encounters Encounter Date Encounter Type Care Provider Facility Start: 10-12-2024 End: 10-12-2024 Chidi Johnson MD Work Phone: [facility] Start: 10-12-2024 End: 10-12-2024 Chidi Cell Therapyvivian Johnson MD Work Phone: [facility] Start: 09-17-2024 End: 09-17-2024 Bamboo flowsheet Barry Stevens [employer] CONVERTER-MILLWRIGHT HELPER Work Phone: [facility] Start: 09-17-2024 End: 09-17-2024 Bamboo flowsheet Barry Stevens VEH[employer] CONVERTER-MILLWRIGHT HELPER Work Phone: [facility] Start: 09-17-2024 End: 09-17-2024 ambulatory BARRY STEVENS Not Available Start: 09-17-2024 End: 09-17-2024 Office outpatient visit 10 minutes Barry Stevens VEH[employer]S CONVERTER-MILLWRIGHT HELPER Work Phone: [facility] Comment on above: Seborrheic keratosis (Primary Dx); Actinic keratosis; Seborrheic keratosis, inflamed Start: 08-31-2024 End: 08-31-2024 Bamboo flowsheet Mason Johnson MD Work Phone: [facility] Start: 08-31-2024 End: 08-31-2024 Bamboo flowsheet Mason Johnson MD Work Phone: [facility] Start: 08-31-2024 End: 08-31-2024 Assay of hemosiderin, quant Mason Johnson MD Work Phone: [facility] Start: 08-31-2024 End: 08-31-2024 Patient encounter procedure Mason Johnson MD Work Phone: [facility] Comment on above: Routine general medi noelle examination at health care facility (Primary Dx); ACP (advance care planning); Hyperlipidemia, unspecified (CMS/HCC); Secondary and unspecified malignant neoplasm of lymph nodes of head, face and neck (CMS/HCC); OJEDA (nonalcoholic steatohepatitis); Moderate mixed hyperlipidemia not requiring statin therapy (CMS/HCC); Prostate cancer screening; 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, without long-term current use of insulin (CMS/HCC); Torticollis; Actinic keratosis Start: 08-31-2024 End: 08-31-2024 ambulatory MASON B JOHNSON Not Available Start: 07-21-2024 End: 07-21-2024 Office outpatient visit 15 minutes Serene Morales MD Work Phone: [facility] Comment on above: 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) Start: 07-21-2024 End: 07-21-2024 ambulatory SERENE MORALES Not Available Start: 07-21-2024 End: 07-21-2024 Bamboo anuradha Morales MD Work Phone: [facility] Start: 07-21-2024 End: 07-21-2024 Bamjerry Morales MD Work Phone: [facility] Start: 07-15-2024 End: 07-15-2024 Clinical Support Mannie Rodriguez MANAGER OF EMPLOYEE RELATIONS Work Phone: [facility] Comment on above: Need for vaccination Start: 06-16-2024 End: 06-16-2024 Bamboo anuradha Morales MD Work Phone: [facility] Start: 06-16-2024 End: 06-16-2024 Bamjosé antonioo anuradha Morales MD Work Phone: [facility] Start: 06-16-2024 End: 06-16-2024 ambulatory SERENE MORALES Not Available Start: 06-16-2024 End: 06-16-2024 Office outpatient visit 15 minutes Serene Morales MD Work Phone: [facility] Comment on above: 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) Start: 05-26-2024 End: 05-26-2024 Bamboo flowsheet Barry A Felter VEHIC[employer] FUEL SYSTEMS CONVERTER-MILLWRIGHT HELPER Work Phone: [facility] Start: 05-26-2024 End: 05-26-2024 Bamboo flowsheet Barry A Felter VEH[employer]EL SYSTEMS CONVERTER-MILLWRIGHT HELPER Work Phone: [facility] Start: 05-26-2024 End: 05-26-2024 ambulatory BARRY A FELTER Not Available Start: 05-26-2024 End: 05-26-2024 Office outpatient visit 10 minutes Barry Stevens VEH[employer]S CONVERTER-MILLWRIGHT HELPER Work Phone: [facility] Comment on above: Seborrheic keratosis (Primary Dx); Actinic keratosis Start: 05-19-2024 End: 05-19-2024 Bamboo flowsheet Serene Morales MD Work Phone: [facility] Start: 05-19-2024 End: 05-19-2024 Bamboo flowsheet Serene Morales MD Work Phone: [facility] Start: 05-19-2024 End: 05-19-2024 Office outpatient visit 15 minutes Serene Morales MD Work Phone: [facility] Comment on above: 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) Start: 05-19-2024 End: 05-19-2024 ambulatory SERENE MORALES Not Available Start: 05-18-2024 End: 05-18-2024 Refill Madonna Mitchell NP Work Phone: [facility] Comment on above: Primary hypertension (CMS/HCC) Start: 05-06-2024 End: 05-06-2024 Office outpatient visit 25 minutes John England MD Work Phone: Hematology/Oncology Comment on above: 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); Lung nodules; Stage 3 chronic kidney disease, unspecified whether stage 3a or 3b CKD (HCC) Start: 05-06-2024 End: 05-06-2024 ambulatory MASON JOHNSON II Facility:[facility] Start: 05-06-2024 End: 05-06-2024 Patient encounter procedure Yordan Feliz MD Work Phone: Radiation Oncology Comment on above: Head and neck cancer (HCC) (Primary Dx) Start: 04-30-2024 End: 04-30-2024 Bamboo flowsvivian Johnson MD Work Phone: [facility] Start: 04-30-2024 End: 04-30-2024 Bamboo flowsheet Mason Johnson MD Work Phone: [facility] Start: 04-30-2024 End: 04-30-2024 ambulatory MASON JOHNSON Not Available Start: 04-30-2024 End: 04-30-2024 Office outpatient visit 25 minutes Mason Johnson MD Work Phone: [facility] Comment on above: Primary hypertension (CMS/HCC) (Primary Dx); Controlled type 2 diabetes mellitus without complication, without long-term current use of insulin (CMS/HCC); Coronary artery disease involving [place] coronary artery of [place] heart without angina pectoris (CMS/HCC) Start: 04-23-2024 End: 04-23-2024 Clinisync Result Encounter Generic External Data Provider [facility] Unsolicited Start: 04-23-2024 End: 04-23-2024 Clinisync Result Encounter Generic External Data Provider [facility] Unsolicited Start: 04-23-2024 End: 04-23-2024 ambulatory JOHN ABHYJULIANA Facility:[facility] Start: 04-23-2024 End: 04-23-2024 Subsequent hospital visit by physician Arrival Time Radiology Work Phone: Radiology [facility] Comment on above: 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] Start: 04-21-2024 End: 04-21-2024 Bamboo flowsheet Serene Morales MD Work Phone: [facility] Start: 04-21-2024 End: 04-21-2024 Bamboo flowsheet Serene Morales MD Work Phone: [facility] Start: 04-21-2024 End: 04-21-2024 ambulatory SERENE MORALES Not Available Start: 04-21-2024 End: 04-21-2024 Office outpatient visit 15 minutes Serene Morales MD Work Phone: [facility] Comment on above: 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) Start: 04-07-2024 End: 04-07-2024 ambulatory [facility] Work Phone: Start: 04-07-2024 End: 04-07-2024 Patient encounter procedure [facility] [place] Work Phone: Start: 03-24-2024 End: 03-24-2024 Bamboo flowsvivian Morales MD Work Phone: [facility] Start: 03-24-2024 End: 03-24-2024 Bamboo flowsvivian Morales MD Work Phone: [facility] Start: 03-24-2024 End: 03-24-2024 Office outpatient visit 15 minutes Serene Morales MD Work Phone: [facility] Comment on above: 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) Start: 03-24-2024 End: 03-24-2024 ambulatory SERENE Ford TIMMIS Not Available Start: 03-04-2024 End: 03-04-2024 Clinisync Result Encounter Shaikh Vidal WELCH Work Phone: [facility] Unsolicited Start: 03-04-2024 End: 03-04-2024 Clinisync Result Encounter Shaikh Vidal WELCH Work Phone: [facility] Unsolicited Start: 02-25-2024 End: 02-25-2024 Bamboo flowsvivian Morales MD Work Phone: [facility] Start: 02-25-2024 End: 02-25-2024 Bamboo flowsvivian Morales MD Work Phone: [facility] Start: 02-25-2024 End: 02-25-2024 ambulatory SERENE H TIMMIS Not Available Start: 02-25-2024 End: 02-25-2024 Office outpatient visit 15 minutes Serene Morales MD Work Phone: [facility] Comment on above: 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) Start: 01-21-2024 End: 01-21-2024 ambulatory SERENE JACOBSONS Not Available Start: 01-14-2024 End: 01-14-2024 ambulatory [facility] Work Phone: Start: 01-14-2024 End: 01-14-2024 Patient encounter procedure [facility] [place] Work Phone: Start: 12-16-2023 End: 12-16-2023 ambulatory BOJORQUEZ FAWWAD Not Available Start: 12-04-2023 End: 12-04-2023 ambulatory SERENE HINDSMIS Not Available Start: 11-20-2023 End: 11-20-2023 ambulatory BOJORQUEZ FAWWAD Not Available Start: 11-06-2023 End: 11-06-2023 ambulatory BOJORQUEZ FAWWAD Facility:[facility] Start: 11-06-2023 End: 11-06-2023 Patient encounter procedure Yordan Feliz MD Work Phone: Radiation Oncology Comment on above: Head and neck cancer (HCC) (Primary Dx) Start: 10-23-2023 End: 10-23-2023 ambulatory BOJORQUEZ FAWWAD Facility:[facility] Start: 10-23-2023 End: 10-23-2023 Office outpatient visit [...] (R esults) Start: 10-16-2023 End: 10-16-2023 ambulatory JOHN ENGLAND Facility:[facility] Start: 10-16-2023 End: 10-16-2023 Subsequent hospital visit by physician Arrival Time Radiology Work Phone: Radiology [facility] Comment on above: Lung nodules [R91.8] Start: 10-02-2023 End: 10-02-2023 ambulatory SERENE MORALES Not Available Start: 06-19-2023 End: 06-19-2023 ambulatory MARYAM HODGSON Facility:[facility] Start: 06-12-2023 End: 06-12-2023 ambulatory JOHN ENGLAND Facility:[facility] Start: 06-12-2023 End: 06-12-2023 Subsequent hospital visit by physician Arrival Time Radiology Work Phone: Radiology [facility] Comment on above: 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] Start: 06-11-2023 End: 06-11-2023 ambulatory SHAIKH VIDAL Facility:[facility] Start: 06-10-2023 Patient encounter procedure Serene Morales MD Work Phone: [facility] Start: 05-08-2023 End: 05-08-2023 Patient encounter procedure Yordan Feliz MD Work Phone: Radiation Oncology Comment on above: Other specified diso rders of thyroid (Primary Dx) Start: 03-20-2023 End: 03-20-2023 Office outpatient visit 25 minutes John England MD Work Phone: Hematology/Oncology Comment on above: 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); Mass of right lung Start: 03-14-2023 End: 03-14-2023 Subsequent hospital visit by physician Arrival Time Radiology Work Phone: Radiology [facility] Comment on above: Lung nodules [R91.8] Start: 02-06-2023 End: 02-06-2023 Orders Only Shaikh Vidal WELCH Work Phone: Hematology/Oncology Comment on above: Hyperlipidemia, unsp ecified hyperlipidemia type (Primary Dx); Type 2 diabetes mellitus without complication, unspecified whether chcf insulin use (HCC); Unspecified essential hypertension Lung nodule seen on imaging study (Primary Dx); Disorder of carbohydrate metabolism (HCC) Start: 02-06-2023 End: 02-06-2023 Office outpatient visit 25 minutes John England MD Work Phone: Hematology/Oncology Comment on above: 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); Mass of right lung; Lung nodules Start: 01-29-2023 End: 01-29-2023 Subsequent hospital visit by physician Arrival Time Radiology Work Phone: Radiology [facility] Comment on above: 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] Start: 11-28-2022 End: 11-28-2022 Patient encounter procedure Yordan Feliz MD Work Phone: Radiation Oncology Comment on above: 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) Start: 11-07-2022 End: 11-07-2022 Office outpatient visit [...] End: 10-31-2022 Patient encounter procedure Maryam Hodgson APRN.MILLWRIGHT HELPER Work Phone: [facility] Comment on above: Head and neck cancer (HCC) (Primary Dx) Start: 10-25-2022 End: 10-25-2022 ambulatory Maryam Hodgson APRN.PEEWEE Work Phone: Hematology/Oncology Comment on above: 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); Chemotherapy-induced neutropenia (HCC) Start: 10-25-2022 End: 10-25-2022 Patient encounter procedure Maryam Hodgson APRN.PEEWEE Work Phone: [facility] Start: 10-22-2022 Patient encounter [...] (Primary Dx) Start: 09-07-2022 Telephone encounter Marysol Purvis SEED POTATO CUTTER H ematology/Oncology Comment on above: Social Work [...] Start: 08-24-2022 Patient encounter procedure [facility] Provider [facility] Start: 08-23-2022 End: 08-23-2022 Subsequent hospital visit [...] Start: 08-17-2022 [facility] Start: 08-16-2022 End: 08-16-2022 Office outpatient new 60 minutes John England MD Work Phone: Hematology/Oncology Comment on above: 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) Start: 08-15-2022 Patient encounter procedure [facility] Provider [facility] Start: 08-15-2022 Telephone encounter Yordan Feliz [...] for preprocedural laboratory examination DR SERENE MORALES [facility] Start: 07-31-2022 End: 07-31-2022 Patient encounter procedure Renea PARTIDA General Surgery N[facility]/Said Bull Start: 07-31-2022 End: 07-31-2022 ambulatory [facility] PARTIDA [facility] Start: 07-27-2022 End: 07-28-[address] SERENE MORALES Facility:[facility] Start: 07-27-2022 End: 07-28-2022 Encounter for preprocedural laboratory examination DR SERENE MORALES Facility:[facility] Start: 07-18-2022 End: 07-19-2022 ambulatory Renea PARTIDA Facility:[id number] Start: 07-11-2022 End: 07-12-[address] RENEA PARTIDA Facility:[facility] Start: 06-13-2022 End: 06-14-2022 ambulatory [facility]enea PARTIDA [facility] Start: 06-13-2022 End: 06-13-2022 Patient encounter procedure Renea PARTIDA General Surgery Nill/Said Bull Start: 06-09-2022 End: 06-10-[address] MANNIE NELSON Facility:[facility] Start: 06-06-2022 ambulatory Renea PARTIDA Facility: [facility] Start: 02-27-2022 End: 02-28-[address] MANNIE NELSON Facility:[facility] Procedures Date Procedure Procedure Detail Performing Clinician Start: 09-17-2024 End: 09-17-2024 CRYOTHERAPY SKIN LESION Barry Stevens VEHIC[employer] SYSTEMS CONVERTER-MILLWRIGHT HELPER Work Phone: Start: 08-31-2024 Hemoglobin glycosylated a1c Mason Johnson MD Work Phone: Start: 05-26-2024 CRYOTHERAPY SKIN LESION Barry Pierreer VE[employer] CONVERTER-MILLWRIGHT HELPER Work Phone: Start: 04-23-2024 Ct soft tissue neck w/contrast material John England MD Work Phone: Start: 04-23-2024 Ct thorax w/contrast material John England MD Work Phone: Start: 04-23-2024 [facility] CBC W AUTO DIFF BLD Generic External Data Provider Start: 04-23-2024 Blood count complete auto&auto difrntl wbc John England MD Work Phone: Start: 03-04-2024 ALL LIPID PROFILE (FASTING) Shaikh Vidal WELCH Work Phone: Start: 10-16-2023 Ct soft tissue neck w/contrast [...] Provider Start: 02-27-[address] MANNIE TURNER IGHT Comment on above: Performed By: #### P SAD #### [facility] [address] [address] [address] Mikayla Galan Start: 07-08-2016 Colonoscopy Renea NI LL Start: 07-08-2011 Colonoscopy Renea NI LL Start: 09-05-2006 Colonoscopy Renea NI LL Start: 05-08-2003 Colonoscopy Renea NI LL Start: 07-08-2001 Cardiac catheterization Renea NILL Start: 07-08-2001 Placement of stent i n cardiac conduit Renea NILL Start: 05-08-2001 Colonoscopy Renea NI LL Start: 07-08-1999 Colonoscopy Renea NI LL Start: 07-08-1999 Sigmoid colectomy Beau PARTIDA Comment on above: with colocolostomy Bilateral extraction of cataracts Renea MILLANL Plan of Treatment Date Care Activity Detail Author Start: 04-23-2027 Diabetes Screening Diabetes Screenin [facility] Start: 10-15-2026 Diabetes Screening Diabetes Screenin g [facility] Start: 02-06-2026 DIABETES SCREEN [facility] Start: 02-06-2026 Diabetes Screening Diabetes Screenin g [facility] Start: 11-07-2025 DIABETES SCREEN DIABETES [facility]CREEN [facility] Start: 10-31-2025 DIABETES SCREEN DIABETES SCREEN [facility] Start: 10-25-2025 DIABETES SCREEN DI[facility]CREEN [facility] Start: 10-19-2025 DIABETES SCREEN [facility] Start: 10-08-2025 [facility] Start: 10-01-2025 DIABETES SCREEN DIABET[facility] SCREEN [facility] Start: 09-24-2025 DIABETES SCREEN [facility] Start: 09-17-2025 DIABETES SCREEN DIABETES SCREEN [facility] Start: 09-10-2025 DIABETES SCREEN DIABETES SCREEN [facility] Start: 09-03-2025 DIABETES SCREEN DIABETES SCREEN [facility] Start: 08-31-2025 Medicare Annual Well ness (AWV) Medicare Annual Wellness (AWV) [facility] Start: 08-23-2025 DIABETES SCREEN DIABETES SCREEN [facility] Start: 05-25-2025 End: 05-25-2025 Patient encounter procedure 05/25/2025 9:20 AM EST Office Visit [facility] [address] [place] [address] Barry Stevens APRN-MILLWRIGHT HELPER [address] [place] [address] [facility] Start: 04-23-2025 Complete blood count Hemoglobin/Sebastien tocrit [facility] Start: 04-23-2025 Creatinine measurement Serum Creatin ine [facility] Start: 02-28-2025 Hemoglobin A1c measurement Olga betes: Hemoglobin A1C [facility] Start: 12-28-2024 End: 12-28-2024 Patient encounter procedure 12/28/2024 9:30 AM EDT Office Visit [facility] [address] [facility] [address] [place] [address] Mason Johnson MD [address] [facility] [address] [place] [address] [facility] Start: 11-04-2024 End: 05-06-2025 CBC W Auto Differential panel - Blood COMPLETE BLOOD COUNT AND DIFFERENTIAL Lab Routine 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 Stage 3 chronic kidney disease, unspecified whether stage 3a or 3b CKD (HCC) Expected: 11/04/2024 (Approximate), Expires: 05/06/2025 [facility] Comment on above: Expected: 11/04/2024 (Approximate), Expires: 05/06/2025 Start: 11-04-2024 End: 05-06-2025 Comprehensive metabolic 2000 panel - Serum or Plasma COMPREHENSIVE METABOLIC PANEL Lab Routine 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 Stage 3 chronic kidney disease, unspecified whether stage 3a or 3b CKD (HCC) Expected: 11/04/2024 (Approximate), Expires: 05/06/2025 [facility] Comment on above: Expected: 11/04/2024 (Approximate), Expires: 05/06/2025 Start: 11-04-2024 End: 06-05-2025 CT Chest W contrast IV CT CHEST W IVCON Radiology Routine 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 Stage 3 chronic kidney disease, unspecified whether stage 3a or 3b CKD (HCC) Expected: 11/04/2024 (Approximate), Expires: 06/05/2025 [facility] Comment on above: Expected: 11/04/2024 (Approximate), Expires: 06/05/2025 Start: 11-04-2024 End: 06-05-2025 CT Neck W contrast IV CT NECK SOFT TISSUE W IVCON Radiology Routine 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 Stage 3 chronic kidney disease, unspecified whether stage 3a or 3b CKD (HCC) Expected: 11/04/2024 (Approximate), Expires: 06/05/2025 [facility] Work Phone: Comment on above: Expected: 11/04/2024 (Approximate), Expires: 06/05/2025 Start: 11-04-2024 End: 11-04-2024 Patient encounter procedure 11/04/2024 11:45 AM EDT Office Visit Radiation Oncology [address] [place] [address] Yordan Feliz MD [address] [place] [address] 6 month Follow up Radiation Oncology Comment on above: 6 month Follow up Start: 11-04-2024 End: 11-04-2024 ambulatory 11/04/2024 11:20 AM EDT Visit (SP) Office Hematology/Oncology [address] [place] [address] John England MD [address] [place] [address] PT SEES DENA BEFORE SINCERE TODAY Hematology/Oncology Comment on above: PT SEES DENA BEFORE V IK TODAY Start: 10-28-2024 End: 10-28-2024 Patient encounter procedure 10/28/2024 7:45 AM EDT Appointment Radiology Pet CT [address] [place] [address] CT CHEST AND NECK Radiology Pet CT Comment on above: CT CHEST AND NECK Start: 10-20-2024 End: 10-20-2024 Patient encounter procedure 10/20/2024 8:00 AM EDT Office Visit [facility] [address] [facility] [address] [place] [address] Serene Morales MD [address] [facility] [address] [place] [address] [facility] Start: 10-15-2024 Complete blood count Hemoglobin/Sebastien tocrit [facility] Start: 10-15-2024 Creatinine measurement Serum Creatin ine [facility] Start: 10-12-2024 End: 10-12-2024 Patient encounter procedure 10/12/2024 3:45 PM EDT Office Visit [facility] [address] [facility] [address] [place] [address] Mason Johnson MD [address] [facility] [address] [place] [address] Arrived [facility] Comment on above: Arrived Start: 09-05-2024 Glaucoma screening Diabetes: R etinopathy Screening [facility] Start: 08-31-2024 End: 08-31-2024 Patient encounter procedure [facility] Comment on above: Arrived Start: 07-21-2024 End: 07-21-2024 Patient encounter procedure [facility] Comment on above: Arrived Start: 06-16-2024 End: 06-16-2024 Patient encounter procedure 06/16/2024 9:00 AM EST Office Visit [facility] [address] [facility] [address] [place] [address] Serene Morales MD [address] [facility] [address] [place] [address] [facility] Start: 06-10-2024 Medicare Annual Well ness (AWV) Medicare Annual Wellness (AWV) [facility] Start: 06-10-2024 Pneumococcal Vaccine : 65+ Years (1 of 2 - PCV) Pneumococcal Vaccine: 65+ Years (1 of 2 - PCV) [facility] Comment on above: Postponed from 10/31 (Patient Refused) Start: 05-26-2024 End: 05-26-2024 Patient encounter procedure 05/26/2024 10:20 AM EST Office Visit [facility] [address] [place] [id number] Barry Stevens APRN-MILLWRIGHT HELPER [address] [place] [address] [facility] Start: 05-22-2024 Hemoglobin A1c measurement Olga betes: Hemoglobin A1C [facility] Start: 05-19-2024 End: 05-19-2024 Patient encounter procedure 05/19/2024 9:00 AM EST Office Visit [facility] [address] [facility] [facility] [address] [place] [address] Serene Morales MD [address] [facility] [address] [place] [address] [facility] Start: 05-06-2024 End: 05-06-2024 ambulatory 05/06/2024 3:20 PM EDT Visit (SP) Office Hematology/Oncology [address] [place] [address] [place] [address] John England MD [address] [place] [address] [place] [address] PT SEES DENA BEFORE SINCERE TODAY Hematology/Oncology Comment on above: PT SEES DENA BEFORE V IK TODAY Start: 05-06-2024 End: 05-06-2024 Patient encounter procedure 05/06/2024 3:00 PM EDT Office Visit Radiation Oncology [address] [place] [address] Yordan Feliz MD [address] [place] [address] [place] [address] PT SEES SINCERE AFTER THIS APPT Radiation Oncology Comment on above: PT SEES SINCERE AFTER TH IS APPT Start: 04-30-2024 End: 04-30-2024 Patient encounter procedure [facility] Comment on above: Arrived Start: 04-29-2024 End: 04-29-2024 Patient encounter procedure 04/29/2024 10:30 AM EDT Office Visit Radiation Oncology [address] [place] [address] Yordan Feliz MD [address] [place] [address] Followup Radiation Oncology Comment on above: Followup Start: 04-29-2024 End: 04-29-2024 Follow-up encounter 04/29/2024 10:00 AM EDT Visit (SP) Office Hematology/Oncology [address] [facility] [place] [address] John England MD [address] [place] [address] 6 month follow up after scans Hematology/Oncology Comment on above: [address] scans Start: 04-23-2024 End: 10-22-2024 CBC W Auto Differential panel - Blood COMPLETE BLOOD COUNT AND DIFFERENTIAL Lab Routine 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 Expected: 04/23/2024 (Approximate), Expires: 10/22/2024 [facility] Work Phone: Comment on above: Expected: 04/23/2024 (Approximate), Expires: 10/22/2024 Start: 04-23-2024 End: 10-22-2024 Cobalamin (Vitamin B12) [Mass/volume] in Serum or Plasma VITAMIN B12 Lab Routine 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 Expected: 04/23/2024 (Approximate), Expires: 10/22/2024 [facility] Work Phone: Comment on above: Expected: 04/23/2024 (Approximate), Expires: 10/22/2024 Start: 04-23-2024 End: 10-22-2024 Comprehensive metabolic 2000 panel - Serum or Plasma COMPREHENSIVE METABOLIC PANEL Lab Routine 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 Expected: 04/23/2024 (Approximate), Expires: 10/22/2024 [facility] Work Phone: Comment on above: Expected: 04/23/2024 (Approximate), Expires: 10/22/2024 Start: 04-23-2024 End: 11-21-2024 CT Chest W contrast IV CT CHEST W IVCON Radiology Routine 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 Expected: 04/23/2024 (Approximate), Expires: 11/21/2024 [facility] Work Phone: Comment on above: Expected: 04/23/2024 (Approximate), Expires: 11/21/2024 Start: 04-23-2024 End: 11-21-2024 CT Neck W contrast IV CT NECK SOFT TISSUE W IVCON Radiology Routine 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 Expected: 04/23/2024 (Approximate), Expires: 11/21/2024 [facility] Work Phone: Comment on above: Expected: 04/23/2024 (Approximate), Expires: 11/21/2024 Start: 04-23-2024 End: 10-22-2024 Ferritin [Mass/volume] in Serum or Plasma FERRITIN Lab Routine 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 Expected: 04/23/2024 (Approximate), Expires: 10/22/2024 [facility] Work Phone: Comment on above: Expected: 04/23/2024 (Approximate), Expires: 10/22/2024 Start: 04-23-2024 End: 10-22-2024 Folate [Mass/volume] in Serum or Plasma FOLATE, SERUM Lab Routine 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 Expected: 04/23/2024 (Approximate), Expires: 10/22/2024 [facility] Work Phone: Comment on above: Expected: 04/23/2024 (Approximate), Expires: 10/22/2024 Start: 04-23-2024 End: 10-22-2024 Iron and Iron binding capacity panel - Serum or Plasma IRON AND TIBC Lab Routine 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 Expected: 04/23/2024 (Approximate), Expires: 10/22/2024 [facility] Work Phone: Comment on above: Expected: 04/23/2024 (Approximate), Expires: 10/22/2024 Start: 04-23-2024 End: 04-23-2024 Patient encounter procedure 04/23/2024 8:15 AM EDT Appointment Radiology Pet CT [address] [place] [address] [place] [address] CT CHEST AND NECK Radiology Pet CT Comment on above: CT CHEST AND NECK Start: 04-21-2024 End: 04-21-2024 Patient encounter procedure 04/21/2024 9:00 AM EDT Office Visit [facility] [address] [id number] Serene Morales MD 112 [facility] [address] [place] [address] [facility] Start: 03-24-2024 End: 03-24-2024 Patient encounter procedure [facility] Comment on above: [facility] Start: 03-08-2024 Covid-19 Vaccine () Covid-19 Vaccine ( season) [facility] Start: 03-08-2024 Covid-19 Vaccine ( season) Covid-19 Vaccine ( season) [facility] Start: 03-08-2024 Influenza vaccination C [facility] Start: 02-07-2024 SERUM CREATININE SERUM CREATININE [facility] Start: 02-07-2024 Urine screening for protein Diabetes: Urine Protein Screening [facility] Start: 11-08-2023 SERUM CREATININE SERUM CREATININE [facility] Start: 11-06-2023 End: 02-05-2024 Thyrotropin [Units/volume] in Serum or Plasma TSH BLD Lab Routine Other specified disorders of thyroid Expected: 11/06/2023 (Approximate), Expires: 02/05/2024 [facility] Work Phone: Comment on above: Expected: 11/06/2023 (Approximate), Expires: 02/05/2024 Start: 11-06-2023 End: 02-05-2024 Thyroxine (T4) free [Mass/volume] in Serum or Plasma T4 FREE/FREE THYROX Lab Routine Other specified disorders of thyroid Expected: 11/06/2023 (Approximate), Expires: 02/05/2024 [facility] Work Phone: Comment on above: Expected: 11/06/2023 (Approximate), Expires: 02/05/2024 Start: 11-06-2023 End: 02-05-2024 Triiodothyronine (T3) [Mass/volume] in Serum or Plasma T3 BLD Lab Routine Other specified disorders of thyroid Expected: 11/06/2023 (Approximate), Expires: 02/05/2024 [facility] Work Phone: Comment on above: Expected: 11/06/2023 (Approximate), Expires: 02/05/2024 Start: 2023 HEMOGLOBIN/HEMATOCRIT HEMOGLOBIN/HEM ATOCRIT [facility] Start: 2023 SERUM CREATININE SERUM CREATININE [facility] Start: 07-08-2023 Advance Directive Discussion Advance Directive Discussion [facility] Start: 07-08-2023 Behavioral Health Screening Behavioral Health Screening [facility] Start: 06-19-2023 End: 03-20-2024 CBC W Auto Differential panel - Blood CBC + DIFF Lab Routine 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) Mass of right lung Expected: 06/19/2023 (Approximate), Expires: 03/20/2024 [facility] Work Phone: Comment on above: Expected: 06/19/2023 (Approximate), Expires: 03/20/2024 Start: 06-19-2023 End: 03-20-2024 Comprehensive metabolic 2000 panel - Serum or Plasma COMP METABOLIC PANEL Lab Routine 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) Mass of right lung Expected: 06/19/2023 (Approximate), Expires: 03/20/2024 [facility] Work Phone: Comment on above: Expected: 06/19/2023 (Approximate), Expires: 03/20/2024 Start: 06-19-2023 End: 04-18-2024 CT CHEST W IVCON CT CHEST W IVCON Radiology Routine 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) Mass of right lung Expected: 06/19/2023 (Approximate), Expires: 04/18/2024 [facility] Work Phone: Comment on above: Expected: 06/19/2023 (Approximate), Expires: 04/18/2024 Start: 03-13-2023 End: 03-07-2024 CT CHEST W IVCON CT CHEST W IVCON Radiology Routine Lung nodules Expected: 03/13/2023 (Approximate), Expires: 03/07/2024 [facility] Work Phone: Comment on above: Expected: 03/13/2023 (Approximate), Expires: 03/07/2024 Start: 03-08-2023 Covid-19 Vaccine ( season) Covid-19 Vaccine ( season) [facility] Start: 03-08-2023 Influenza vaccination C [facility] Start: 02-06-2023 End: 04-08-2023 ALBUMIN/CREAT RATIO RND UR [facility] Work Phone: Comment on above: Expected: 02/06/2023 , Expires: 04/08/2023 Start: 02-06-2023 End: 04-08-2023 Creatinine [Mass/volume] in Urine collected for unspecified duration [facility] Work Phone: Comment on above: Expected: 02/06/2023 , Expires: 04/08/2023 Start: 02-06-2023 End: 04-08-2023 Hemoglobin A1c in Blood [facility] Work Phone: Comment on above: Expected: 02/06/2023 , Expires: 04/08/2023 Start: 02-06-2023 End: 04-08-2023 Lipid 1996 panel - Serum or Plasma [facility] Work Phone: Comment on above: Expected: 02/06/2023 , Expires: 04/08/2023 Start: 01-30-2023 End: 11-08-2023 CBC W Auto Differential panel - Blood CBC + DIFF Lab Routine 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) Chemotherapy-induced neutropenia (HCC) Expected: 01/30/2023 (Approximate), Expires: 11/08/2023 [facility] Work Phone: Comment on above: Expected: 01/30/2023 (Approximate), Expires: 11/08/2023 Start: 01-30-2023 End: 11-08-2023 Comprehensive metabolic 2000 panel - Serum or Plasma COMP METABOLIC PANEL Lab Routine 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) Chemotherapy-induced neutropenia (HCC) Expected: 01/30/2023 (Approximate), Expires: 11/08/2023 [facility] Work Phone: Comment on above: Expected: 01/30/2023 (Approximate), Expires: 11/08/2023 Start: 01-28-2023 End: 12-28-2023 NM PET/CT SKULL-THIGH SUBSEQUENT NM PET/CT SKULL-THIGH SUBSEQUENT Radiology Routine 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) Expected: 01/28/2023, Expires: 12/28/2023 [facility] Work Phone: Comment on above: Expected: 01/28/2023 , Expires: 12/28/2023 Start: 11-08-2022 End: 01-08-2023 CBC W Auto Differential panel - Blood CBC + DIFF Lab Routine 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) Expected: 11/08/2022, Expires: 01/08/2023 [facility] Work Phone: Comment on above: Expected: 11/08/2022 , Expires: 01/08/2023 Start: 11-08-2022 End: 01-08-2023 Comprehensive metabolic 2000 panel - Serum or Plasma COMP METABOLIC PANEL Lab Routine 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) Expected: 11/08/2022, Expires: 01/08/2023 [facility] Work Phone: Comment on above: Expected: 11/08/2022 , Expires: 01/08/2023 Start: 10-26-2022 End: 12-26-2022 CBC W Auto Differential panel - Blood CBC + DIFF Lab Routine 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) Chemotherapy-induced neutropenia (HCC) Expected: 10/26/2022, Expires: 12/26/2022 [facility] Work Phone: Comment on above: Expected: 10/26/2022 , Expires: 12/26/2022 Start: 10-26-2022 End: 12-26-2022 Comprehensive metabolic 2000 panel - Serum or Plasma COMP METABOLIC PANEL Lab Routine 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) Chemotherapy-induced neutropenia (HCC) Expected: 10/26/2022, Expires: 12/26/2022 [facility] Work Phone: Comment on above: Expected: 10/26/2022 , Expires: 12/26/2022 Start: 07-08-2022 ADVANCE DIRECTIVE DISCUSSION ADVANCE DIRECTIVE DISCUSSION [facility] Start: 07-08-2022 DEPRESSION ASSESSMENT DEPRESSION ASS ESSMENT [facility] Start: 2020 COVID-19 VACCINE (3 - Booster for Moderna series) COVID-19 VACCINE (3 - Booster for Moderna series) [facility] Start: 10-04-2020 COVID-19 VACCINE (3 - Moderna risk series) COVID-19 VACCINE (3 - Moderna risk series) [facility] Start: 10-31-2018 RSV Vaccine (1 - 1-d ose 75+ series) RSV Vaccine (1 - 1-dose 75+ series) [facility] Start: 10-31-2008 Pneumococcal Vaccine : 65+ (1 of 1 - PCV) Pneumococcal Vaccine: 65+ (1 of 1 - PCV) [facility] Start: 10-31-2008 PNEUMOCOCCAL: 65+ (1 - PCV) PNEUMOCOCCAL: 65+ (1 - PCV) [facility] Start: 2003 RSV Vaccine (1 - 1-d ose 60+ series) RSV Vaccine (1 - 1-dose 60+ series) [facility] Start: 10-31-1993 SHINGRIX VACCINE (1 of 2) SANCHEZ GRIX VACCINE (1 of 2) [facility] Start: 10-31-1988 DIABETES SCREEN DIABETES SCREEN [facility] Start: 10-31-1962 SHINGRIX VACCINE (1 of 2) SANCHEZ GRIX VACCINE (1 of 2) [facility] Start: 10-31-1962 Urine microalbumin profile [facility] Start: 10-31-[address] IN TELLER [place] DISEASE VISIT ANNUAL PCP TEAM CHRONIC DISEASE VISIT [facility] Start: 10-31-1961 Anxiety Screening Anxiety Screening [facility] Start: 10-31-1961 Depression Screening Depression Scre ening [facility] Start: 10-31-1961 HEPATITIS C SCREENING HEPATITIS C SC MELISSA [facility] Start: 10-31-1949 Pneumococcal Vaccine : 65+ (1 - PCV) Pneumococcal Vaccine: 65+ (1 - PCV) [facility] Start: 10-31-1949 Pneumococcal Vaccine : 65+ (1 of 2 - PCV) Pneumococcal Vaccine: 65+ (1 of 2 - PCV) [facility] Start: 10-31-1949 Pneumococcal Vaccine : 65+ Years (1 of 2 - PCV) Pneumococcal Vaccine: 65+ Years (1 of 2 - PCV) [facility] Start: 10-31-1949 PNEUMOCOCCAL: 65+ (1 - PCV) PNEUMOCOCCAL: 65+ (1 - PCV) [facility] End: 08-16-2023 CBC W Auto Differential panel - Blood CBC + DIFF Lab Routine Cancer of base of tongue (HCC) Once per week for 10 Occurrences starting 08/16/2022 until 08/16/2023, 1 completed [facility] Work Phone: Comment on above: Once per week for 10 Occurrences starting 08/16/2022 until 08/16/2023, 1 completed CBC W Auto Different ial panel - Blood CBC + DIFF Lab Routine Cancer of base of tongue (HCC) 10/08/2022 11:35 AM EDT [facility] Work Phone: End: 08-16-2023 Comprehensive metabolic 2000 panel - Serum or Plasma COMP METABOLIC PANEL Lab Routine Cancer of base of tongue (HCC) Once per week for 10 Occurrences starting 08/16/2022 until 08/16/2023, 1 completed [facility] Work Phone: Comment on above: Once per week for 10 Occurrences starting 08/16/2022 until 08/16/2023, [address] SIM PLANNING RADI ATION ONCOLOGY CT SIM PLANNING RADIATION ONCOLOGY Radiology Routine Tongue cancer (HCC) Ordered: 08/23/2022 [facility] Work Phone: Comment on above: Ordered: 08/23/2022 End: 09-13-[address] attenuation skull base mid-thigh NM PET/CT SKULL-THIGH INITIAL Radiology Routine Tongue cancer (HCC) Head and neck cancer (HCC) 1 Occurrences starting 08/14/2022 until 09/13/2023 [facility] Work Phone: Comment on above: 1 Occurrences starti ng 08/14/2022 until 09/13/2023 Prostate specific Ag [Mass/volume] in Serum or Plasma PSA Lab Routine Prostate cancer screening Ordered: 08/31/2024 [facility] Work Phone: Comment on above: Ordered: 08/31/2024 [facility] Immunizations Immunization Date Immunization Notes Care Provider Fa cilihorace 07-15-2024 Influenza, High-dose Seasonal, Quadrivalent, Preservative Free Mannie Rodriguez NP Work Phone: [facility] 06-20-2023 Influenza, Seasonal, Quadrivalent, Adjuvanted Mason Johnson MD Work Phone: [facility] 05-03-2022 influenza nasal, unspecified formulation Ccf Provider [facility] 05-03-2022 influenza virus vaccine, unspecified formulation Renea PARTIDA [facility] 05-03-2022 Influenza, Seasonal, Quadrivalent, Adjuvanted Mason Johnson MD Work Phone: [facility] 04-07-2022 influenza, seasonal, injectable Mason Johnson MD Work Phone: [facility] 06-15-2021 Influenza, Seasonal, Quadrivalent, Adjuvanted Mason Johnson MD Work Phone: [facility] 09-06-2020 SARS-CoV-2 (COVID-19 ) mRNA-1273 vaccine Renea PARTIDA [facility] 08-09-2020 SARS-CoV-2 (COVID-19 ) mRNA-1273 vaccine Renea PARTIDA [facility] 05-19-2019 influenza, high dose seasonal, preservative-free Mason Johnson MD Work Phone: [facility] 06-24-2018 Influenza, injectabl e, Madin Irena Canine Kidney, preservative free, quadrivalent Mason Johnson MD Work Phone: [facility] 06-21-2015 influenza, seasonal, injectable, preservative free Mason Johnson MD Work Phone: [facility] 06-20-2009 novel [id number], preservative-free, injectable Mason Johnson MD Work Phone: [facility] Payers Date Payer Category Payer Medicare (Managed Care) [employer] [id number] 2024 Medicare [id number] 2022 Unknown HOSPITAL/MEDICAL GENERIC MEDICAL GENERIC [id number] 2022-Present [phone] [address] [facility] [address] [place] [address] Indemnity [id number] 2020 Private Health Insurance [id number] 2020 Private Health Insurance [id number] 2013 Medicare [id number] 1959 Medicare [id number] 1959 Private Health Insurance [id number] 1943 Unknown [id number] 2.16.840.1.992806.3.579.2. 727 1943 Unknown [id number] 2.16.840.1.410082.3.579.2. 727 1943 Unknown [id number] 2.16.840.1.281009.3.579.2. 727 1943 Unknown [id number] 2.16.840.1.967674.3.579.2. 593 1943 Unknown [id number] 2.16.840.1.855160.3.579.2. 593 1943 Unknown [id number] 2.16.840.1.175051.3.579.2. 593 1943 Unknown [id number] 2.16.840.1.034430.3.579.2. 593 1943 Unknown [id number] 2.16.840.1.746344.3.579.2. 593 1943 Unknown [id number] 2.16.840.1.919460.3.579.2. 593 1943 Unknown [id number] 2.16.840.1.087758.3.579.2. 125 1943 Unknown [id number] 2.16.840.1.320751.3.579.2. 125 1943 Unknown [id number] 2.16.840.1.984068.3.579.2. 125 1943 Unknown [id number] 2.16.840.1.278172.3.579.2. 125 1943 Unknown [id number] 2.16840.1.449928.3.579.2. 1258 1943 Unknown [id number] 2.16840.1.516232.3.579.2. 1258 1943 Unknown [id number] 2.840.1.850045.3.579.2. 1258 1943 Unknown [id number] 2.16840.1.224056.3.579.2. 1258 1943 Unknown [id number] 2.16840.1.542027.3.579.2. 1258 1943 Unknown [id number] 2.16840.1.171274.3.579.2. 125 1943 Unknown [id number] 2.16840.1.529091.3.579.2. 125 1943 Unknown [id number] 2.16840.1.796442.3.579.2. 125 1943 Unknown [id number] 2.16840.1.648081.3.579.2. 125 1943 Unknown [id number] 2.16.840.1.090481.3.579.2. 125 1943 Unknown [id number] 2.16.840.1.059896.3.579.2. 125 1943 Unknown [id number] 2.16.840.1.863019.3.579.2. 1259 1943 Unknown [id number] 2.16.840.1.030946.3.579.2. 1259 Social History Date Type Detail Facility Start: 06-13-2022 End: 11-20-2023 Tobacco smoking status Never smoked tobacco (finding) [facility] Tobacco smoking status Never [facility] Start: 02-06-2023 End: 06-10-2023 Sex Assigned At Male [facility] Start: 04-30-2013 End: 11-20-2023 Tobacco use and exposure Smokeless tobacco non-user [facility] Start: 08-14-2022 End: 09-17-2024 Alcohol intake Current drinker of alcohol (finding) [facility] Start: 08-14-2022 Alcohol Comment daily 3 beers [facility] Start: 1945 Sex Assigned At Not on file C [facility] Start: 02-06-2023 End: 06-10-2023 History of Social function [facility] Start: 1945 Sex Assigned At Male [facility] Within the last year , have you been afraid of your partner or ex-partner? No [facility] Are you now , , , , never or living with a partner? [facility] How often to you hav e a drink containing alcohol? 4 or more times a week [facility] How many standard drinks containing alcohol do you have on a typical day? 3 or 4 [facility] How often do you hav e 6 or more drinks on 1 occasion? Never [facility] How hard is it for you to pay for the very basics like food, housing, medical care, and heating Very hard [facility] Do you feel stress - tense, restless, nervous, or anxious, or unable to sleep at night because your mind is troubled all the time - these days [OSQ] Not at all [facility] (I/We) worried whether (my/our) food would run out before (I/we) got money to buy more. Never true [facility] Start: 01-20-2023 Alcohol Comment caffeine intak e: 1-2 cups per day [facility] NEGATED: Highlighted rowStart: NINF History of tobacco use Passive smoker [facility] Functional Status Date Assessment Result Facility 06-13-2022 Functional Status N/A [facility] Clinical Notes 04-28-2015 to 09-17-2024 Barry Stevens, VE[employer] CONVERTER-MILLWRIGHT HELPER - 09/17/2024 10:35 AM Anthony Johnson MD - 08/31/2024 9:30 AM Rodrigo Morales MD - 07/21/2024 2:20 PM Chino Rodriguez NP - 07/15/2024 3:45 PM ESTPatient Instructions Note Date & Type Note Facility 09-17-2024 History of Presen t illness Narrative Lesions: Location: scalp, right forearm Duration: months Quality: itchy Modifying factors: aggravated by picking Associated symptoms: rough, scaly Treatments: none *Patient has hx of AKs Established patient, referred today by Mason Johnson MD All pertinent medical history, medications, and allergies were reviewed. General Exam: alert, oriented to person, place, and time, normal affect, well appearing Unaccompanied A focused exam completed based on patient reported problems, see below: 1. Seborrheic keratosis Mid Parietal Scalp Stuck on verrucous, variably pigmented papules and plaques. Patient was counseled regarding these benign growths. Removal is normally not necessary, but they may be removed if they are symptomatic or for cosmetic reasons. 2. Actinic keratosis Right Forearm - Posterior Erythematous scaly papules Patient was counseled regarding these sun-induced growths that can develop into squamous cell carcinoma if left untreated. Discussed treatment with cryotherapy. It was emphasized that any treated lesions that fail to resolve should be re-evaluated. Cryotherapy performed today; see procedure note. Educational literature provided. Diagnosis: Actinic keratosis Indication: Precancerous Location: see skin exam Consent: Verbal consent was obtained and risks were discussed, including, but not limited to risks of scarring, darker or accounting methods analyst pigmentary changes, recurrence, incomplete removal and infection. Method: Liquid nitrogen was used to treat the lesion(s) with two 5-10 second freeze-thaw cycles. Number of lesions treated: 1 Post-procedure instructions: Instructions were given orally and in writing. The office will be contacted if the lesion fails to resolve despite treatment, or if a side effect develops such as abnormal crusting, scabbing, redness or tenderness Cryotherapy, skin lesion - Right Forearm - Posterior 3. Seborrheic keratosis, inflamed Mid Parietal Scalp [place] and brown stuck on verrucous scaly papule with surrounding erythema The patient was informed that symptomatic seborrheic keratoses are benign growths that become inflamed, itchy, tender, traumatized, caught on clothing, or bleed. Symptomatic lesions can be treated with cryotherapy or curretage. Thicker lesions treated with cryotherapy may require more than one treatment. The patient was instructed to notify the office if abnormal redness or tenderness develops at the treatment site. Cryotherapy today, see procedure note. Diagnosis: Inflamed seborrheic keratosis Indication: Inflamed Consent: Verbal consent was obtained and risks were discussed, including, but not limited to risks of scarring, darker or accounting methods analyst pigmentary changes, recurrence, incomplete removal and infection. Method: Liquid nitrogen was used to treat the lesion(s) with two 5-10 second freeze-thaw cycles Number of lesions treated: 1 Post-procedure instructions: Instructions were given orally and in writing. The office will be contacted if the lesion fails to resolve despite treatment, or if a side effect develops such as abnormal crusting, scabbing, redness or tenderness Cryotherapy, skin lesion - Mid Parietal Scalp Next Visit: as scheduled documented in this encounter [facility] 08-31-2024 History of Presen t illness Narrative Images from the original note were not included. Subjective : Chief Complaint: Manish Root is an 78 y.o. male here for an annual wellness visit. I have reviewed and reconciled the history and medication list with the patient today. Current Outpatient Medications Medication Sig Dispense Refill aspirin 81 MG EC tablet Take 81 mg by mouth 1 (one) time each day at the same time. cholecalciferol (Vitamin D-3) 25 MCG (1000 UT) tablet Take 25 mcg by mouth 1 (one) time each day at the same time. fenofibrate micronized (Lofibra) 134 MG capsule Take 1 capsule (134 mg) by mouth Daily 90 capsule 1 latanoprost (Xalatan) 0.005 % ophthalmic solution Administer 1 drop into both eyes Daily metFORMIN (Glucophage) 500 MG tablet Take 1 tablet (500 mg) by mouth Daily 90 tablet 1 metoprolol succinate XL (Toprol-XL) 25 MG 24 hr tablet TAKE 1 TABLET BY MOUTH DAILY at the same time each day 90 tablet 1 tiZANidine (Zanaflex) 4 MG tablet Take 1 tablet (4 mg) by mouth in the morning and 1 tablet (4 mg) before bedtime. 60 tablet 3 No current facility-administered medications for this visit. Review of Systems Constitutional: Negative for appetite change, fatigue and unexpected weight change. Respiratory: Negative for cough, chest tightness and shortness of breath. Cardiovascular: Negative for chest pain, palpitations and leg swelling. Gastrointestinal: Negative for abdominal pain, nausea and vomiting. Genitourinary: Negative for difficulty urinating, hematuria and urgency. List of current healthcare providers: Patient Care Team: Mason Johnson MD as PCP - General (Internal Medicine) Mason Johnson MD as PCP - [employer] Annual Visit Over the past 2 weeks, how often have you been bothered by any of the following problems? Little interest or pleasure in doing things: Not at all Feeling down, depressed, or hopeless: Not at all Patient Health Questionnaire-2 Score: 0 Jones Fall Risk History of Falling, Immediate or Within 3 Months: No Secondary Diagnosis: No Ambulatory Aid: Walks without aid/bedrest/nurse assist Health Risk Assessment Form Do you need help eating, bathing, using the toilet, dressing, or getting around your home?: No Can you prepare your own meals?: Yes Can you do your own housework without help?: Yes Can you shop for groceries or clothes without help?: Yes Do you exercise for about 20 minutes 3 or more days a week?: No How confident are you that you can control and manage most of your health problems?: Very confident Can you mange your money, credit cards and accounts, pay bills and taxes?: Yes Cognitive Screening Three Word Registration: Apple, Watch, Ketty Clock Drawing: Normal Clock - 2 Three Word Recall: All 3 words correct - 3 Total Score (0-5 Points): 5 Pain Assessment Pain Score: 1 Advance Care Planning Do you have a living will?: No Do you have a medical power of tax attorney?: No Objective : BP 136/74 Pulse 74 Ht 5' 7 Wt 195 lb SpO2 98% BMI 30.54 kg/m No results found. Physical Exam Constitutional: General: He is not in acute distress. Appearance: He is normal weight. He is not ill-appearing. HENT: Head: Normocephalic. Cardiovascular: Rate and Rhythm: Normal rate and regular rhythm. Heart sounds: Normal heart sounds. No murmur heard. Pulmonary: Effort: Pulmonary effort is normal. Breath sounds: Normal breath sounds. Musculoskeletal: General: No swelling. Right lower leg: No edema. Left lower leg: No edema. Neurological: Mental Status: He is alert. Psychiatric: Mood and Affect: Mood normal. Thought Content: Thought content normal. Judgment: Judgment normal. Office Visit on 08/31/2024 Component Date Value Ref Range Status Hemoglobin A1C 08/31/2024 6.9 Final Assessment/Plan : The following health maintenance schedule was reviewed with the patient and provided in printed form in the after visit summary: Health Maintenance Topic Date Due Pneumococcal Vaccine: 65+ Years (1 of 2 - PCV) Never done Diabetes: Urine Protein Screening 02/07/2024 Diabetes: Retinopathy Screening 09/05/2024 Diabetes: Hemoglobin A1C 02/28/2025 Medicare Annual Wellness (AWV) 08/31/2025 Influenza Vaccine Completed Advance Care Planning Patient agreed to discuss advance care planning at today's wellness visit. We discussed that an advance directive is a legal document that only goes into effect if the patient is incapacitated and unable to speak for himself or herself. This would help healthcare providers to ensure that the patient gets the care that he or she wishes to receive. The goal is to provide a patient with the best possible quality of life. Encouraged patient to obtain a living will and durable power of tax attorney for healthcare. We discussed telling muro people about their advance directives such as close family members, and requested a copy to scan into the patient's EHR. An advance directive packet was offered to the patient. 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 Continue current treatment plan as previously outlined without changes. Torticollis - tiZANidine (Zanaflex) 4 MG tablet; Take 1 tablet (4 mg) by mouth in the morning and 1 tablet (4 mg) before bedtime. Actinic keratosis - Ambulatory referral to Dermatology; Future - Left dorsal forearm Follow up in about 4 months (around 12/29/2024) for Routine F/U. Orders Placed This Encounter Procedures PSA Order Specific Question: Print requisition? Answer: No Ambulatory referral to Dermatology Standing Status: Future Standing Expiration Date: 02/28/2025 Referral Priority: Routine Referral Type: Consultation Referral Reason: Specialty Services Required Referred to Provider: Barry Stevens APRN-[employer] Requested Specialty: Dermatology Number of Visits Requested: 1 POCT Glycated hemoglobin, total Electronically signed by Mason Johnson MD on August 31, 2024 documented in this encounter [facility] 07-21-2024 History of Presen t illness Narrative Subjective Patient ID: Manish Root is a 78 y.o. 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[facility]) 01/15/2023 Colon cancer ([facility]) 11/19/2012 DM II (diabetes mellitus, type II), controlled ([facility]) 01/15/2023 GERD (gastroesophageal reflux disease) 01/15/2023 History of CO (myocardial infarction) ([facility]) 01/15/2023 HTN (hypertension) ([facility]) 01/15/2023 OJEDA (nonalcoholic steatohepatitis) 01/15/2023 Stage 2 chronic kidney disease 2022 Facial lesion 01/21/2023 CAD (coronary artery disease) (CMS/HCC) 06/10/2023 Chemotherapy-induced neutropenia (CMS/HCC) 10/19/2022 Type 2 diabetes mellitus without complications (CMS/HCC) 06/10/2023 Diastasis recti 01/15/2023 Encounter for Medicare annual wellness exam 06/10/2023 Neck muscle spasm 11/20/2023 Throat cancer (CMS/HCC) 12/04/2023 Hyperlipidemia (CMS/HCC) 12/16/2023 Resolved Ambulatory Problems Diagnosis Date Noted Overweight 12/15/2022 Acute pain of right shoulder 12/15/2022 Basal cell carcinoma (BCC) of face 12/15/2022 Chemotherapy-induced neutropenia (CMS/HCC) 10/19/2022 Diastasis recti 01/15/2023 Disorder of prostate 01/15/2023 Glucose intolerance 01/15/2023 History of colonic polyps 01/15/2023 History of malignant neoplasm of colon 01/15/2023 Hypercholesterolemia (CMS/HCC) 01/15/2023 Raynaud's syndrome 01/15/2023 Vitamin D deficiency 01/15/2023 Past Medical History: Diagnosis Date Diabetes (CMS/HCC) HCVD (hypertensive cardiovascular disease) (CMS/HCC) Hx of myocardial infarction (CMS/HCC) Hypertension (CMS/HCC) Inguinal hernia, right Raynaud's disease Sinusitis Thyromegaly (CMS/HCC) Type 2 diabetes mellitus (CMS/HCC) Past Surgical History: Procedure Laterality Date CARDIAC CATHETERIZATION 2001 with stent placement CATARACT EXTRACTION COLECTOMY 02/2000 sigmoid colectomy with colostomy COLONOSCOPY LARYNGOSCOPY 07/31/2022 with biopsy, Timmis Allergies Allergen Reactions Statins GI intolerance Current Outpatient Medications on File Prior to Visit Medication Sig Dispense Refill aspirin 81 MG EC tablet Take 81 mg by mouth 1 (one) time each day at the same time. cholecalciferol (Vitamin D-3) 25 MCG (1000 UT) tablet Take 25 mcg by mouth 1 (one) time each day at the same time. fenofibrate micronized (Lofibra) 134 MG capsule Take 1 capsule (134 mg) by mouth Daily 90 capsule 1 latanoprost (Xalatan) 0.005 % ophthalmic solution Administer 1 drop into both eyes Daily metFORMIN (Glucophage) 500 MG tablet Take 1 tablet (500 mg) by mouth Daily 90 tablet 1 metoprolol succinate XL (Toprol-XL) 25 MG 24 hr tablet TAKE 1 TABLET BY MOUTH DAILY at the same time each day 90 tablet 1 No current facility-administered medications on file prior to visit. Objective Last Recorded Vitals Vitals: 07/21/24 1414 BP: 148/74 Pulse: 57 ENT Physical Exam Constitutional Appearance: patient appears well-nourished, Ear Ear comments: Christopher TIP&P, dry Assessment/Plan Diagnoses and all orders for this visit: Cancer of base of tongue (CMS/HCC) ANAHY today. Start quarterly appts documented in this encounter [facility] 07-15-2024 History of Presen t illness Narrative documented in this encounter [facility] 06-16-2024 History of Presen t illness Narrative Subjective Patient ID: Manish Root is a 78 y.o. male who presents for Cancer (1 mo follow up) Family History Adopted: Yes Problem Relation Name Age of Onset No Known Problems Mother No Known Problems Father Active Ambulatory Problems Diagnosis Date Noted Cancer of base of tongue (CMS/HCC) 12/15/2022 Metastatic cancer to cervical lymph nodes ([facility]) 12/15/2022 Arteriosclerotic cardiovascular disease ([facility]) 01/15/2023 Colon cancer ([facility]) 11/19/2012 DM II (diabetes mellitus, type II), controlled ([facility]) 01/15/2023 GERD (gastroesophageal reflux disease) 01/15/2023 History of CO (myocardial infarction) ([facility]) 01/15/2023 HTN (hypertension) ([facility]) 01/15/2023 OJEDA (nonalcoholic steatohepatitis) 01/15/2023 Stage 2 chronic kidney disease 2022 Facial lesion 01/21/2023 CAD (coronary artery disease) ([facility]) 06/10/2023 Chemotherapy-induced neutropenia ([facility]) 10/19/2022 Type 2 diabetes mellitus without complications ([facility]) 06/10/2023 Diastasis recti 01/15/2023 Encounter for Medicare annual wellness exam 06/10/2023 Neck muscle spasm 11/20/2023 Throat cancer ([facility]/HCC) 12/04/2023 Hyperlipidemia ([facility]/HCC) 12/16/2023 Resolved Ambulatory Problems Diagnosis Date Noted Overweight 12/15/2022 Acute pain of right shoulder 12/15/2022 Basal cell carcinoma (BCC) of face 12/15/2022 Chemotherapy-induced neutropenia ([facility]/HCC) 10/19/2022 Diastasis recti 01/15/2023 Disorder of prostate 01/15/2023 Glucose intolerance 01/15/2023 History of colonic polyps 01/15/2023 History of malignant neoplasm of colon 01/15/2023 Hypercholesterolemia ([facility]/HCC) 01/15/2023 Raynaud's syndrome 01/15/2023 Vitamin D deficiency 01/15/2023 Past Medical History: Diagnosis Date Diabetes (CMS/HCC) HCVD (hypertensive cardiovascular disease) ([facility]) Hx of myocardial infarction ([facility]/HCC) Hypertension ([facility]/HCC) Inguinal hernia, right Raynaud's disease Sinusitis Thyromegaly ([facility]) Type 2 diabetes mellitus ([facility]) Past Surgical History: Procedure Laterality Date CARDIAC CATHETERIZATION 2001 with stent placement CATARACT EXTRACTION COLECTOMY 02/2000 sigmoid colectomy with colostomy COLONOSCOPY LARYNGOSCOPY 07/31/2022 with biopsy, Lana Allergies Allergen Reactions Statins GI intolerance Current Outpatient Medications on File Prior to Visit Medication Sig Dispense Refill aspirin 81 MG EC tablet Take 81 mg by mouth 1 (one) time each day at the same time. cholecalciferol (Vitamin D-3) 25 MCG (1000 UT) tablet Take 25 mcg by mouth 1 (one) time each day at the same time. fenofibrate micronized (Lofibra) 134 MG capsule Take 1 capsule (134 mg) by mouth Daily 90 capsule 1 latanoprost (Xalatan) 0.005 % ophthalmic solution Administer 1 drop into both eyes Daily metoprolol succinate XL (Toprol-XL) 25 MG 24 hr tablet TAKE 1 TABLET BY MOUTH DAILY at the same time each day 90 tablet 1 metFORMIN (Glucophage) 500 MG tablet Take 1 tablet (500 mg) by mouth Daily 90 tablet 1 No current facility-administered medications on file prior to visit. Objective Last Recorded Vitals Vitals: 06/16/24 0902 BP: 142/71 ENT Physical Exam Constitutional Appearance: patient appears well-developed and well-nourished, Oral Cavity/Oropharynx OC/OP comments: OC/OP/IDL - no mass or ulcer Neck Neck comments: Supple, FROM, No LAD Assessment/Plan Diagnoses and all orders for this visit: Cancer of base of tongue (CMS/HCC) ANAHY today. Start quarterly appts next visit documented in this encounter [facility] 05-26-2024 History of Presen t illness Narrative Lesions: Location: scalp and left ear Duration: couple of years Quality: denies pain, denies itch, denies bleeding Modifying factors: aggravated by picking Associated symptoms: non-healing Treatments: none Lesions: Location: forehead Duration: few months Quality: denies pain, denies itch, denies bleeding Modifying factors: aggravated by picking Associated symptoms: non-healing Treatments: none Established patient All pertinent medical history, medications, and allergies were reviewed. General Exam: alert, oriented to person, place, and time, normal affect, well appearing Unaccompanied A focused exam completed based on patient reported problems, see below: 1. Seborrheic keratosis Mid Parietal Scalp Stuck on verrucous, variably pigmented papules and plaques. Patient was counseled regarding these benign growths. Removal is normally not necessary, but they may be removed if they are symptomatic or for cosmetic reasons. 2. Actinic keratosis (6) Left Eyebrow, Left [place], Left Zygomatic Area, Right Forehead, Right Scaphoid Fossa, Right [place] Erythematous scaly papules Patient was counseled regarding these sun-induced growths that can develop into squamous cell carcinoma if left untreated. Discussed treatment with cryotherapy. It was emphasized that any treated lesions that fail to resolve should be re-evaluated. Cryotherapy performed today; see procedure note Diagnosis: Actinic keratosis Indication: Precancerous Location: see skin exam Consent: Verbal consent was obtained and risks were discussed, including, but not limited to risks of scarring, darker or accounting methods analyst pigmentary changes, recurrence, incomplete removal and infection. Method: Liquid nitrogen was used to treat the lesion(s) with two 5-10 second freeze-thaw cycles. Number of lesions treated: 6 Post-procedure instructions: Instructions were given orally and in writing. The office will be contacted if the lesion fails to resolve despite treatment, or if a side effect develops such as abnormal crusting, scabbing, redness or tenderness Cryotherapy, skin lesion - Left Eyebrow, Left [place], Left Zygomatic Area, Right Forehead, Right Scaphoid Fossa, Right [place] Next Visit: 1 year, skin check documented in this encounter [facility] 05-19-2024 History of Presen t illness Narrative Subjective Patient ID: Manish Root is a 78 y.o. male who presents for Cancer (1 month follow up Cancer of base of tongue) Family History Adopted: Yes Problem Relation Name Age of Onset No Known Problems Mother No Known Problems Father Active Ambulatory Problems Diagnosis Date Noted Cancer of base of tongue ([facility]) 12/15/2022 Metastatic cancer to cervical lymph nodes ([facility]) 12/15/2022 Arteriosclerotic cardiovascular disease ([facility]) 01/15/2023 Colon cancer ([facility]) 11/19/2012 DM II (diabetes mellitus, type II), controlled ([facility]) 01/15/2023 GERD (gastroesophageal reflux disease) 01/15/2023 History of CO (myocardial infarction) ([facility]) 01/15/2023 HTN (hypertension) ([facility]) 01/15/2023 OJEDA (nonalcoholic steatohepatitis) 01/15/2023 Stage 2 chronic kidney disease 2022 Facial lesion 01/21/2023 CAD (coronary artery disease) ([facility]) 06/10/2023 Chemotherapy-induced neutropenia ([facility]) 10/19/2022 Type 2 diabetes mellitus without complications ([facility]) 06/10/2023 Diastasis recti 01/15/2023 Encounter for Medicare annual wellness exam 06/10/2023 Neck muscle spasm 11/20/2023 Throat cancer ([facility]/HCC) 12/04/2023 Hyperlipidemia ([facility]) 12/16/2023 Resolved Ambulatory Problems Diagnosis Date Noted Overweight 12/15/2022 Acute pain of right shoulder 12/15/2022 Basal cell carcinoma (BCC) of face 12/15/2022 Chemotherapy-induced neutropenia (CMS/HCC) 10/19/2022 Diastasis recti 01/15/2023 Disorder of prostate 01/15/2023 Glucose intolerance 01/15/2023 History of colonic polyps 01/15/2023 History of malignant neoplasm of colon 01/15/2023 Hypercholesterolemia (CMS/HCC) 01/15/2023 Raynaud's syndrome 01/15/2023 Vitamin D deficiency 01/15/2023 Past Medical History: Diagnosis Date Diabetes (CMS/HCC) HCVD (hypertensive cardiovascular disease) (CMS/HCC) Hx of myocardial infarction (CMS/HCC) Hypertension (CMS/HCC) Inguinal hernia, right Raynaud's disease Sinusitis Thyromegaly (CMS/HCC) Type 2 diabetes mellitus (CMS/HCC) Past Surgical History: Procedure Laterality Date CARDIAC CATHETERIZATION 2001 with stent placement CATARACT EXTRACTION COLECTOMY 02/2000 sigmoid colectomy with colostomy COLONOSCOPY LARYNGOSCOPY 07/31/2022 with biopsy, Timmis Allergies Allergen Reactions Statins GI intolerance Current Outpatient Medications on File Prior to Visit Medication Sig Dispense Refill aspirin 81 MG EC tablet Take 81 mg by mouth 1 (one) time each day at the same time. cholecalciferol (Vitamin D-3) 25 MCG (1000 UT) tablet Take 25 mcg by mouth 1 (one) time each day at the same time. fenofibrate micronized (Lofibra) 134 MG capsule Take 1 capsule (134 mg) by mouth Daily 90 capsule 1 latanoprost (Xalatan) 0.005 % ophthalmic solution Administer 1 drop into both eyes Daily metFORMIN (Glucophage) 500 MG tablet Take 1 tablet (500 mg) by mouth Daily 90 tablet 1 metoprolol succinate XL (Toprol-XL) 25 MG 24 hr tablet TAKE 1 TABLET BY MOUTH DAILY at the same time each day 90 tablet 1 [DISCONTINUED] Magnesium 400 MG capsule Take by mouth [DISCONTINUED] metoprolol succinate XL (Toprol-XL) 25 MG 24 hr tablet TAKE 1 TABLET BY MOUTH DAILY at the same time 90 tablet 1 No current facility-administered medications on file prior to visit. Objective Last Recorded Vitals Vitals: 05/19/24 0857 BP: 130/62 ENT Physical Exam Constitutional Appearance: patient appears well-developed, well-nourished and well-groomed, Communication/Voice: communication appropriate for developmental age; vocal quality normal; Oral Cavity/Oropharynx OC/OP comments: OC/OP/IDL - no mass or ulcer Neck Neck comments: Supple, FROM, No LAD Assessment/Plan Diagnoses and all orders for this visit: Cancer of base of tongue (CMS/HCC) ANAHY today. Monthly till July documented in this encounter [facility] 05-06-2024 Instructions John England MD - 05/06/2024 3:[address] Neck and Chest in 6 months Labs same day RTC 1 week after to review documented in this encounter [facility] 05-06-2024 Note HNO ID: [id number] Author: JOHN ENGLAND MD Service: ? Author Type: Physician Type: Progress Notes Filed: 05/09/2024 10:42 Note Text: NAME: Manish Root [facility] NO.: [id number] DATE OF SERVICE: May 06, 2024 (Jacquelyn) Some elements in this clinic note that are critical to medical decision making have been carefully reviewed and included from a prior clinic note dated: October 23, 2023 (Jacquelyn) Referring Provider: Dr. Татьяна Feliz Additional Clinicians involved in Manish Root's care: Serene Morales DIAGNOSIS: Base of Tongue squamous cell ca. ASSESSMENT: 78 year old man with base of tongue [...] and Chest in 6 months Labs same day RTC 1 week after to review HPI: CASE HISTORY: Reverse Chronological Order 04/23/2024 - CT Neck AND Chest: Neck: Stable posttreatment changes at left base of tongue. No new suspicious soft tissue, edema, enhancement or mass effect to suggest recurrence. No lymphadenopathy Chest: No interval change since 10/16/23. Mild patchy opacities in the left lung apex and punctate nodular opacity in the right lung, stable. 10/16/2023 - CT Neck AND Chest: Neck: [...] Ca Stage 3 - 2/5 LN + [place] regimen on protocol Updated Visit, May 06, 2024: Manish returns with his Jahaira (she has a pinched nerve that has locked up her shoulder) His scans are negative. He's doing very well. Updated Visit, October 23, 2023: Manish returns [...] vocal changes Reviewed PET showing a new consolidatio (more content not included)... [facility] 05-06-2024 History of Presen t illness Narrative Images from the original note were not included. NAME: Manish Root CLINIC NO.: [id number] DATE OF SERVICE: May 06, 2024 (Jacquelyn) Some elements in this clinic note that are critical to medical decision making have been carefully reviewed and included from a prior clinic note dated: October 23, 2023 (Jacquelyn) Referring Provider: Dr. Татьяна Feliz Additional Clinicians involved in Manish Root's care: Serene Morales DIAGNOSIS: Base of Tongue squamous cell ca. ASSESSMENT: 78 year old man with base of tongue [...] and Chest in 6 months Labs same day RTC 1 week after to review HPI: CASE HISTORY: Reverse Chronological Order 04/23/2024 - CT Neck & Chest: Neck: Stable posttreatment changes at left base of tongue. No new suspicious soft tissue, edema, enhancement or mass effect to suggest recurrence. No lymphadenopathy Chest: No interval change since 10/16/23. Mild patchy opacities in the left lung apex and punctate nodular opacity in the right lung, stable. 10/16/2023 - CT Neck & Chest: Neck: [...] Ca Stage 3 - 2/5 LN + [place] regimen on protocol Updated Visit, May 06, 2024: Manish returns with his Jahaira (she has a pinched nerve that has locked up her shoulder) His scans are negative. He's doing very well. Updated Visit, October 23, 2023: Manish returns [...] PERFORMANCE STATUS: 0 PHYSICAL EXAMINATION: Vitals: BP 122/73 Pulse 60 Temp (Src) 97.8 (Temporal) Resp 18 Ht 5' 5.709 (1.67m) Wt 191 lb 2.2 oz (86.7kg) SpO2 98% BMI 31.12 kg/(m^2). Body surface area is 2 meters squared. Exam limited to gross visualization [...] mg tab 81 mg every other day. LABORATORY VALUES: WBC (k/uL) Date Value 04/23/2024 3.46 (L) RBC (m/uL) Date Value 04/23/2024 4.17 (L) Hemoglobin (g/dL) Date Value 04/23/2024 13.3 Hematocrit (%) Date Value 04/23/2024 38.4 (L) MCV (fL) Date Value 04/23/2024 92.1 MCH (pg) Date Value 04/23/2024 31.9 MCHC (g/dL) Date Value 04/23/2024 34.6 RDW-CV (%) Date Value 04/23/2024 14.4 Platelet Count (k/uL) Date Value 04/23/2024 206 MPV (fL) Date Value 04/23/2024 9.4 Glucose (mg/dL) Date Value 04/23/2024 146 (H) BUN (mg/dL) Date Value 04/23/2024 18 Creatinine (mg/dL) Date Value 04/23/2024 1.32 (H) Sodium (mmol/L) Date Value 04/23/2024 141 Potassium (mmol/L) Date Value 04/23/2024 4.3 Chloride (mmol/L) Date Value 04/23/2024 103 CO2 (mmol/L) Date Value 04/23/2024 30 Protein, Total (g/dL) Date Value 04/23/2024 6.6 Albumin (g/dL) Date Value 04/23/2024 4.2 Calcium, Total (mg/dL) Date Value 04/23/2024 9.5 Alkaline Phosphatase (U/L) Date Value 04/23/2024 48 Bilirubin, Total (mg/dL) Date Value 04/23/2024 0.5 AST (U/L) Date Value 04/23/2024 15 ALT (U/L) Date Value 04/23/2024 14 Cholesterol, Total (mg/dL) Date Value 02/06/2023 168 Triglyceride (mg/dL) Date Value 02/06/2023 89 DIAGNOSIS: (C01) 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) (primary encounter diagnosis) Plan: CT NECK SOFT TISSUE W IVCON, iv contrast (will be provided with radiology test), CT CHEST W IVCON, iv contrast (will be provided with radiology test), COMPLETE BLOOD COUNT AND DIFFERENTIAL, COMPREHENSIVE METABOLIC PANEL (R91.8) Lung nodules Plan: CT NECK SOFT TISSUE W IVCON, iv contrast (will be provided with radiology test), CT CHEST W IVCON, iv contrast (will be provided with radiology test), COMPLETE BLOOD COUNT AND DIFFERENTIAL, COMPREHENSIVE METABOLIC PANEL (N18.30) Stage 3 chronic kidney disease, unspecified whether stage 3a or 3b CKD (HCC) Plan: CT NECK SOFT TISSUE W IVCON, iv contrast (will be provided with radiology test), CT CHEST W IVCON, iv contrast (will be provided with radiology test), COMPLETE BLOOD COUNT AND DIFFERENTIAL, COMPREHENSIVE METABOLIC PANEL PAST MEDICAL HISTORY Diagnosis Date 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) 08/21/2022 Chemotherapy-induced neutropenia (HCC) 10/19/2022 Diabetes mellitus (HCC) HTN (hypertension) PAST SURGICAL HISTORY Procedure Laterality Date LAPAROSCOPIC HEMICOLECTOMY PAST SURGICAL HISTORY OF Cardiac stent placement Social History Tobacco Use Smoking status: Never Passive exposure: Never Smokeless tobacco: Never Vaping Use Vaping status: Never Used Substance Use Topics Alcohol use: Yes Comment: daily 3 beers Drug use: Not Currently History reviewed. No pertinent family history. I spent a total of 30 minutes on the date of the service which included preparing to see the patient, [id number] patient care, completing clinical documentation, performing a medically appropriate examination, counseling and educating the patient/family/caregiver, ordering medications, tests, or procedures, independently interpreting results (not separately reported), communicating results to the patient/family/caregiver, and care coordination (not separately reported). John England MD, CPE Hematology and Oncology Services Provided at: [place], [place] CC: Dr. Yordan Morales documented in this encounter [facility] 05-06-2024 History of Presen t illness Narrative Radiation [...] fractions ELAPSED TIME: 49 days. INTERVAL HISTORY: Patient states he is doing fairly well. Denies any significant neck pain or dysphagia. LABORATORY: Hemoglobin (g/dL) Date Value 04/23/2024 13.3 Hematocrit (%) Date Value 04/23/2024 38.4 WBC (k/uL) Date Value 04/23/2024 3.46 Platelet Count (k/uL) Date Value 04/23/2024 206 Latest Reference Range & Units 10/16/23 10:46 [...] Lymph 1.00 - 4.00 k/uL 0.48 (L) Carlton% % 10.4 Abs Carlton <0.87 k/uL 0.32 Eosin% % 1.6 Abs Eosin <0.46 k/uL 0.05 Baso% % 0.6 Abs Baso <0.11 k/uL <0.03 Immature Gran % % 0.6 IMMATURE GRANS (ABS) <0.10 k/uL <0.03 NRBC /100 WBC 0.0 Absolute nRBC <0.01 k/uL <0.01 (L): Data is abnormally low RADIOLOGY: CT neck 04/23/2024:IMPRESSION: 1. STABLE POSTTREATMENT CHANGES AT LEFT BASE OF TONGUE 2. NO NEW SUSPICIOUS SOFT TISSUE, EDEMA, ENHANCEMENT OR MASS EFFECT TO SUGGEST RECURRENCE 3. NO LYMPHADENOPATHY CT chest 04/23/2024: 1. No interval change since 10/16/23. 2. Mild patchy opacities in the left lung apex and punctate nodular opacity in the right lung, stable. CT Neck 10/16/23: IMPRESSION: Primary: NI-RADS 1. [...] review of systems is negative. PHYSICAL EXAM: 05/06/24 1436 BP: 122/73 Pulse: 60 Resp: 18 Temp: 36.6 C (97.8 F) TempSrc: Temporal SpO2: 98% Weight: 86.7 kg (191 lb 2.2 oz) KPS: 100 General Appearance: Well appearing, [...] follow-up with Dr. Morales. 2. Lung nodule CT demonstrating stability. Continue surveillance. Signed by: Yordan Feliz MD cc: Dr. Shaikh Drake Maryam [address] [place] [address] documented in this encounter [facility] 05-06-2024 Note HNO ID: [id number] Author: Yordan FELIZ MD Service: ? Author Type: Physician Type: Progress Notes Filed: 05/15/2024 13:56 Note Text: Radiation Oncology - Follow Up [...] fractions ELAPSED TIME: 49 days. INTERVAL HISTORY: Patient states he is doing fairly well. Denies any significant neck pain or dysphagia. LABORATORY: Hemoglobin (g/dL) Date Value 04/23/2024 13.3 Hematocrit (%) Date Value 04/23/2024 38.4 WBC (k/uL) Date Value 04/23/2024 3.46 Platelet Count (k/uL) Date Value 04/23/2024 206 Latest Reference Range AND Units 10/16/23 10:46 [...] Lymph 1.00 - 4.00 k/uL 0.48 (L) Carlton% % 10.4 Abs Carlton <0.87 k/uL 0.32 Eosin% % 1.6 Abs Eosin <0.46 k/uL 0.05 Baso% % 0.6 Abs Baso <0.11 k/uL <0.03 Immature Gran % % 0.6 IMMATURE GRANS (ABS) <0.10 k/uL <0.03 NRBC /100 WBC 0.0 Absolute nRBC <0.01 k/uL <0.01 (L): Data is abnormally low RADIOLOGY: CT neck 04/23/2024:IMPRESSION: 1. STABLE POSTTREATMENT CHANGES AT LEFT BASE OF TONGUE 2. NO NEW SUSPICIOUS SOFT TISSUE, EDEMA, ENHANCEMENT OR MASS EFFECT TO SUGGEST RECURRENCE 3. NO LYMPHADENOPATHY CT chest 04/23/2024: 1. No interval change since 10/16/23. 2. Mild patchy opacities in the left lung apex and punctate nodular opacity in the right lung, stable. CT Neck 10/16/23: IMPRESSION: Primary: NI-RADS 1. [...] or incontinence MUSCULOSKELETAL: Negative for joint pain o (more content not included)... [facility] 04-30-2024 History of Presen t illness Narrative Images from the original note were not included. HPI Establish Care Additional comments: Previous pcp dr vidal Loaiza oncology twice yearly [facility] Last edited by Niki Alvarez LPN on 04/30/2024 9:03 AM. Subjective Patient ID: Manish Root is a 78 y.o. male who presents for Establish Care (Previous pcp dr fawwad/Sees oncology twice yearly [facility]), Diabetes, and Hypertension. Diabetes Mellitus Patient presents for follow up of diabetes. Current symptoms include: none. Patient denies foot ulcerations, nausea, paresthesia of the feet, polydipsia, polyuria, and visual disturbances. Evaluation to date has included: fasting blood sugar, fasting lipid panel, and hemoglobin A1C. Home sugars: patient does not check sugars. Hypertension Patient is here for follow-up of elevated blood pressure. home. Cardiac symptoms: none. Patient denies chest pain. Cardiovascular risk factors: advanced age (older than 55 for men, 65 for women), diabetes mellitus, hypertension, and male gender. Diabetes Hypertension Current Outpatient Medications on File Prior to Visit Medication Sig Dispense Refill aspirin 81 MG EC tablet Take 81 mg by mouth 1 (one) time each day at the same time. cholecalciferol (Vitamin D-3) 25 MCG (1000 UT) tablet Take 25 mcg by mouth 1 (one) time each day at the same time. fenofibrate micronized (Lofibra) 134 MG capsule Take 1 capsule (134 mg) by mouth Daily 90 capsule 1 latanoprost (Xalatan) 0.005 % ophthalmic solution Administer 1 drop into both eyes Daily Magnesium 400 MG capsule Take by mouth metFORMIN (Glucophage) 500 MG tablet Take 1 tablet (500 mg) by mouth Daily 90 tablet 1 metoprolol succinate XL (Toprol-XL) 25 MG 24 hr tablet TAKE 1 TABLET BY MOUTH DAILY at the same time 90 tablet 1 No current facility-administered medications on file prior to visit. I have reviewed and reconciled the history and medication list with the patient today. Allergies Allergen Reactions Statins GI intolerance Social History Tobacco Use Smoking status: Never Passive exposure: Never Smokeless tobacco: Never Vaping Use Vaping status: Never Used Substance Use Topics Alcohol use: Yes Alcohol/week: 7.0 standard drinks of alcohol Types: 3 Cans of beer, 4 Standard drinks or equivalent per week Comment: caffeine intake: 1-2 cups per day Drug use: Never Family History Adopted: Yes Problem Relation Name Age of Onset No Known Problems Mother No Known Problems Father Past Medical History: Diagnosis Date CAD (coronary artery disease) (CMS/HCC) Chemotherapy-induced neutropenia (CMS/HCC) 10/19/2022 Colon cancer (CMS/HCC) Diabetes (CMS/HCC) Diastasis recti 01/15/2023 Disorder of prostate 01/15/2023 GERD (gastroesophageal reflux disease) Glucose intolerance 01/15/2023 HCVD (hypertensive cardiovascular disease) (CMS/HCC) History of colonic polyps 01/15/2023 History of malignant neoplasm of colon 01/15/2023 Hx of myocardial infarction (CMS/HCC) Hyperlipidemia (CMS/HCC) Hypertension (CMS/HCC) Inguinal hernia, right Overweight 12/15/2022 Raynaud's disease Sinusitis Throat cancer (CMS/HCC) Thyromegaly (CMS/HCC) Type 2 diabetes mellitus (CMS/HCC) Vitamin D deficiency Past Surgical History: Procedure Laterality Date CARDIAC CATHETERIZATION 2001 with stent placement CATARACT EXTRACTION COLECTOMY 02/2000 sigmoid colectomy with colostomy COLONOSCOPY LARYNGOSCOPY 07/31/2022 with biopsy, Timmis Visit Vitals BP 134/80 Pulse 63 Ht 5' 7 Wt 193 lb SpO2 100% BMI 30.23 kg/m Smoking Status Never BSA 2.03 m Review of Systems Objective Physical Exam Constitutional: Appearance: He is normal weight. HENT: Head: Normocephalic and atraumatic. Cardiovascular: Rate and Rhythm: Normal rate and regular rhythm. Pulmonary: Effort: Pulmonary effort is normal. Breath sounds: Normal breath sounds. No wheezing. Abdominal: General: Abdomen is flat. Palpations: Abdomen is soft. Tenderness: There is no abdominal tenderness. Neurological: General: No focal deficit present. Mental Status: He is alert and oriented to person, place, and time. Clinisync Result Encounter on 04/23/2024 Component Date Value Ref Range Status [facility] IRON SERPL-MCNC 04/23/2024 78 41 - 186 ug/dL Final [facility] TIBC SERPL-[facility] 04/23/2024 300 232 - 386 ug/dL Final [facility] IRON/TIBC SERPL-SRTO 04/23/2024 26.0 15.0 - 57.0 % Final [facility] VIT B12 SERPL-[facility] 04/23/2024 349 232 - 1,245 pg/mL Final [facility] FERRITIN SERPL-[facility] 04/23/2024 158.0 30.3 - 565.7 ng/mL Final [facility] FOLATE SERPL-[facility] 04/23/2024 12.1 >4.7 ng/mL Final Clinisync Result Encounter on 04/23/2024 Component Date Value Ref Range Status [facility] WBC # BLD AUTO 04/23/2024 3.46 (L) 3.70 - 11.00 k/uL Final [facility] RBC # BLD AUTO 04/23/2024 4.17 (L) 4.20 - 6.00 m/uL Final [facility] HGB BLD-MCNC 04/23/2024 13.3 13.0 - 17.0 g/dL Final [facility] HCT VFR BLD AUTO 04/23/2024 38.4 (L) 39.0 - 51.0 % Final [facility] MCV RBC AUTO 04/23/2024 92.1 80.0 - 100.0 fL Final [facility] MCH RBC QN AUTO 04/23/2024 31.9 26.0 - 34.0 pg Final [facility] MCHC RBC AUTO-MCNC 04/23/2024 34.6 30.5 - 36.0 g/dL Final [facility] RDW RBC-RTO 04/23/2024 14.4 11.5 - 15.0 % Final [facility] PLATELET # BLD AUTO 04/23/2024 206 150 - 400 k/uL Final [facility] PMV BLD AUTO 04/23/2024 9.4 9.0 - 12.7 fL Final [facility] NEUTROPHILS/LEUK NFR BLD AUTO 04/23/2024 74.8 % Final [facility] NEUTROPHILS # BLD AUTO 04/23/2024 2.59 1.45 - 7.50 k/uL Final [facility] LYMPHOCYTES/LEUK NFR BLD AUTO 04/23/2024 13.3 % Final [facility] LYMPHOCYTES # BLD AUTO 04/23/2024 0.46 (L) 1.00 - 4.00 k/uL Final [facility] MONOCYTES/LEUK NFR BLD AUTO 04/23/2024 8.7 % Final [facility] MONOCYTES # BLD AUTO 04/23/2024 0.30 <0.87 k/uL Final [facility] EOSINOPHIL/LEUK NFR BLD AUTO 04/23/2024 1.7 % Final [facility] EOSINOPHIL # BLD AUTO 04/23/2024 0.06 <0.46 k/uL Final [facility] BASOPHILS/LEUK NFR BLD AUTO 04/23/2024 0.9 % Final [facility] BASOPHILS # BLD AUTO 04/23/2024 0.03 <0.11 k/uL Final IMM GRANULOCYTES/LEUK NFR BLD AUTO 04/23/2024 0.6 % Final [facility] GRANULOCYTES # BLD AUTO 04/23/2024 <0.03 <0.10 k/uL Final [facility] NRBC/100 WBC BLD-RTO 04/23/2024 0.0 /100 WBC Final [facility] NRBC # BLD AUTO 04/23/2024 <0.01 <0.01 k/uL Final [facility] DIFFERENTIAL METHOD BLD 04/23/2024 Auto Final [facility] PROT SERPL-MCNC 04/23/2024 6.6 6.3 - 8.0 g/dL Final [facility] ALBUMIN SERPL-MCNC 04/23/2024 4.2 3.9 - 4.9 g/dL Final [facility] CALCIUM SERPL-MCNC 04/23/2024 9.5 8.5 - 10.2 mg/dL Final [facility] BILIRUB SERPL-MCNC 04/23/2024 0.5 0.2 - 1.3 mg/dL Final [facility] ALP SERPL-CCNC 04/23/2024 48 38 - 113 U/L Final [facility] AST SERPL-CCNC 04/23/2024 15 14 - 40 U/L Final [facility] ALT SERPL-CCNC 04/23/2024 14 10 - 54 U/L Final [facility] GLUCOSE SERPL-MCNC 04/23/2024 146 (H) 74 - 99 mg/dL Final Comment: The [place] [employer] (ADA) provides guidance for cutoff [...] Standards of Medical Care in Diabetes 2016, [place] [employer]. Diabetes Care. 2016.39(Suppl 1). [facility] BUN SERPL-[facility] 04/23/2024 18 9 - 24 mg/dL Final [facility] CREAT SERPL-MCNC 04/23/2024 1.32 (H) 0.73 - 1.22 mg/dL Final [facility] SODIUM SERPL-SCNC 04/23/2024 141 136 - 144 mmol/L Final [facility] POTASSIUM SERPL-SCNC 04/23/2024 4.3 3.7 - 5.1 mmol/L Final [facility] CHLORIDE SERPL-SCNC 04/23/2024 103 98 - 107 mmol/L Final [facility] CO2 SERPL-SCNC 04/23/2024 30 22 - 30 mmol/L Final [facility] ANION GAP SERPL-SCNC 04/23/2024 8 8 - 15 mmol/L Final [facility] CREATININE + EGFR PNL SERPLBLD 04/23/2024 55 (L) >=60 mL/min/1.73m??? Final Estimated Glomerular Filtration Rate (eGFR) is calculated using the 2020 CKD-EPI creatinine equation. This equation utilizes serum creatinine, sex, and age as parameters. The creatinine assay has traceable calibration to isotope dilution-mass spectrometry. Refer to KDIGO guidelines for clinical interpretation. In patients with unstable renal function, e.g. those with acute kidney injury, the eGFR may not accurately reflect actual GFR. Assessment/Plan Diagnoses and all orders for this visit: Primary hypertension (CMS/HCC) - Controlled. Controlled type 2 diabetes mellitus without complication, without long-term current use of insulin (CMS/HCC) - POCT Glycated hemoglobin, total today - 7.4%. No changes in therapy. Coronary artery disease involving [place] coronary artery of [place] heart without angina pectoris (CMS/HCC) - The patient is experiencing no symptoms from this condition currently, it is considered medically controlled and no change in current therapies are planned. Follow up in about 4 months (around 08/31/2024) for Routine F/U. documented in this encounter [facility] 04-23-2024 History of Presen t illness Narrative Radiology Service Progress Note PATIENT NAME: Manish Root DATE OF SERVICE: April 23, 2024 TIME: 9:35 AM PATIENT IDENTITY VERIFICATION COMPLETED USING TWO [...] PATIENT PRESENTS WITH AN IMPLANTABLE OR ATTACHED MOTHER SUPERIOR: No RADIOLOGY DEPARTMENT: CT; Exam(s) Completed: Chest and Neck PERIPHERAL IV DATA: Site assessment: Clean,Dry and Intact, Site disposition Discontinued SIGNED BY: RT Bhat (R) April 23, 2024 9:35 AM documented in this encounter [facility] 04-23-2024 Note HNO ID: [id number] Author: RAFAEL ZURITA RT (R) Service: ? Author Type: Technologist Type: Progress Notes Filed: 04/23/2024 09:36 Note Text: Radiology Service Progress Note PATIENT NAME: Manish Root DATE OF SERVICE: April 23, 2024 TIME: 9:35 AM PATIENT IDENTITY VERIFICATION COMPLETED USING TWO [...] PATIENT PRESENTS WITH AN IMPLANTABLE OR ATTACHED MOTHER SUPERIOR: No RADIOLOGY DEPARTMENT: CT; Exam(s) Completed: Chest and Neck PERIPHERAL IV DATA: Site assessment: Clean,Dry and Intact, Site disposition Discontinued SIGNED BY: TOM Bhat) April 23, 2024 9:35 AM [facility] 04-21-2024 History of Presen t illness Narrative Subjective Patient ID: Manish Root is a 78 y.o. 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/2022 Metastatic cancer to cervical lymph nodes (CMS/HCC) 12/15/2022 Arteriosclerotic cardiovascular disease (CMS/HCC) 01/15/2023 Colon cancer ([facility]/HCC) 11/19/2012 DM II (diabetes mellitus, type II), controlled ([facility]) 01/15/2023 GERD (gastroesophageal reflux disease) 01/15/2023 History of CO (myocardial infarction) ([facility]) 01/15/2023 HTN (hypertension) ([facility]) 01/15/2023 OJEDA (nonalcoholic steatohepatitis) 01/15/2023 Stage 2 chronic kidney disease 2022 Facial lesion 01/21/2023 CAD (coronary artery disease) ([facility]) 06/10/2023 Chemotherapy-induced neutropenia ([facility]) 10/19/2022 Type 2 diabetes mellitus without complications ([facility]) 06/10/2023 Diastasis recti 01/15/2023 Encounter for Medicare annual wellness exam 06/10/2023 Neck muscle spasm 11/20/2023 Throat cancer ([facility]) 12/04/2023 Hyperlipidemia ([facility]) 12/16/2023 Resolved Ambulatory Problems Diagnosis Date Noted Overweight 12/15/2022 Acute pain of right shoulder 12/15/2022 Basal cell carcinoma (BCC) of face 12/15/2022 Chemotherapy-induced neutropenia ([facility]) 10/19/2022 Diastasis recti 01/15/2023 Disorder of prostate 01/15/2023 Glucose intolerance 01/15/2023 History of colonic polyps 01/15/2023 History of malignant neoplasm of colon 01/15/2023 Hypercholesterolemia ([facility]) 01/15/2023 Raynaud's syndrome 01/15/2023 Vitamin D deficiency 01/15/2023 Past Medical History: Diagnosis Date Diabetes ([facility]) HCVD (hypertensive cardiovascular disease) ([facility]) Hx of myocardial infarction ([facility]) Hypertension ([facility]) Inguinal hernia, right Raynaud's disease Sinusitis Thyromegaly ([facility]) Type 2 diabetes mellitus ([facility]) Past Surgical History: Procedure Laterality Date CARDIAC CATHETERIZATION 2001 with stent placement CATARACT EXTRACTION COLECTOMY 02/2000 sigmoid colectomy with colostomy COLONOSCOPY LARYNGOSCOPY 07/31/2022 with biopsy, Timmis Allergies Allergen Reactions Statins GI intolerance Current Outpatient Medications on File Prior to Visit Medication Sig Dispense Refill aspirin 81 MG EC tablet Take 81 mg by mouth 1 (one) time each day at the same time. cholecalciferol (Vitamin D-3) 25 MCG (1000 UT) tablet Take 25 mcg by mouth 1 (one) time each day at the same time. fenofibrate micronized (Lofibra) 134 MG capsule Take 1 capsule (134 mg) by mouth Daily 90 capsule 1 latanoprost (Xalatan) 0.005 % ophthalmic solution Administer 1 drop into both eyes Daily Magnesium 400 MG capsule Take by mouth metFORMIN (Glucophage) 500 MG tablet Take 1 tablet (500 mg) by mouth Daily 90 tablet 1 metoprolol succinate XL (Toprol-XL) 25 MG 24 hr tablet TAKE 1 TABLET BY MOUTH DAILY at the same time 90 tablet 1 No current facility-administered medications on file prior to visit. Objective Last Recorded Vitals Vitals: 04/21/24 0917 BP: 173/73 ENT Physical Exam Constitutional Appearance: patient appears well-developed and well-nourished, Oral Cavity/Oropharynx OC/OP comments: OC/OP/IDL - no mass or ulcer Neck Neck comments: Supple, FROM, No LAD Assessment/Plan Diagnoses and all orders for this visit: Cancer of base of tongue (CMS/HCC) ANAHY today. Monthly appt till July documented in this encounter [facility] 03-24-2024 History of Presen t illness Narrative Subjective Patient ID: Manish Root is a 78 y.o. male who presents for Cancer (1 mo check cancer base of tongue) Family History Adopted: Yes Problem Relation Name Age of Onset No Known Problems Mother No Known Problems Father Active Ambulatory Problems Diagnosis Date Noted Cancer of base of tongue (CMS/HCC) 12/15/2022 Metastatic cancer to cervical lymph nodes (CMS/HCC) 12/15/2022 Arteriosclerotic cardiovascular disease (CMS/HCC) 01/15/2023 Colon cancer (CMS/HCC) 11/19/2012 DM II (diabetes mellitus, type II), controlled (CMS/HCC) 01/15/2023 GERD (gastroesophageal reflux disease) 01/15/2023 History of CO (myocardial infarction) ([facility]/HCC) 01/15/2023 HTN (hypertension) (CMS/HCC) 01/15/2023 OJEDA (nonalcoholic steatohepatitis) 01/15/2023 Stage 2 chronic kidney disease 2022 Facial lesion 01/21/2023 CAD (coronary artery disease) (CMS/HCC) 06/10/2023 Chemotherapy-induced neutropenia (CMS/HCC) 10/19/2022 Type 2 diabetes mellitus without complications (CMS/HCC) 06/10/2023 Diastasis recti 01/15/2023 Encounter for Medicare annual wellness exam 06/10/2023 Neck muscle spasm 11/20/2023 Throat cancer (CMS/HCC) 12/04/2023 Hyperlipidemia (CMS/HCC) 12/16/2023 Resolved Ambulatory Problems Diagnosis Date Noted Overweight 12/15/2022 Acute pain of right shoulder 12/15/2022 Basal cell carcinoma (BCC) of face 12/15/2022 Chemotherapy-induced neutropenia (CMS/HCC) 10/19/2022 Diastasis recti 01/15/2023 Disorder of prostate 01/15/2023 Glucose intolerance 01/15/2023 History of colonic polyps 01/15/2023 History of malignant neoplasm of colon 01/15/2023 Hypercholesterolemia (CMS/HCC) 01/15/2023 Raynaud's syndrome 01/15/2023 Vitamin D deficiency 01/15/2023 Past Medical History: Diagnosis Date Diabetes (CMS/HCC) HCVD (hypertensive cardiovascular disease) (CMS/HCC) Hx of myocardial infarction (CMS/HCC) Hypertension (CMS/HCC) Inguinal hernia, right Raynaud's disease Sinusitis Thyromegaly (CMS/HCC) Type 2 diabetes mellitus (CMS/HCC) Past Surgical History: Procedure Laterality Date CARDIAC CATHETERIZATION 2001 with stent placement CATARACT EXTRACTION COLECTOMY 02/2000 sigmoid colectomy with colostomy COLONOSCOPY LARYNGOSCOPY 07/31/2022 with biopsy, Timmis Allergies Allergen Reactions Statins GI intolerance Current Outpatient Medications on File Prior to Visit Medication Sig Dispense Refill aspirin 81 MG EC tablet Take 81 mg by mouth 1 (one) time each day at the same time. cholecalciferol (Vitamin D-3) 25 MCG (1000 UT) tablet Take 25 mcg by mouth 1 (one) time each day at the same time. fenofibrate micronized (Lofibra) 134 MG capsule Take 1 capsule (134 mg) by mouth Daily 90 capsule 1 latanoprost (Xalatan) 0.005 % ophthalmic solution Administer 1 drop into both eyes Daily Magnesium 400 MG capsule Take by mouth metFORMIN (Glucophage) 500 MG tablet Take 1 tablet (500 mg) by mouth Daily 90 tablet 1 metoprolol succinate XL (Toprol-XL) 25 MG 24 hr tablet TAKE 1 TABLET BY MOUTH DAILY at the same time 90 tablet 1 No current facility-administered medications on file prior to visit. Objective Last Recorded Vitals Vitals: 03/24/24 0859 BP: 157/74 ENT Physical Exam Constitutional Appearance: patient appears well-developed and well-nourished, Oral Cavity/Oropharynx OC/OP comments: OC/OP/IDL - no mass or ulcer Neck Neck comments: Supple, FROM, No LAD Assessment/Plan Diagnoses and all orders for this visit: Cancer of base of tongue (CMS/HCC) ANAHY today. Monthly appts till July documented in this encounter [facility] 02-25-2024 History of Presen t illness Narrative Subjective Patient ID: Manish Root is a 78 y.o. male who presents for Cancer (1 month follow up ) Family History Adopted: Yes Problem Relation Name Age of Onset No Known Problems Mother No Known Problems Father Active Ambulatory Problems Diagnosis Date Noted Cancer of base of tongue (CMS/HCC) 12/15/2022 Metastatic cancer to cervical lymph nodes (CMS/HCC) 12/15/2022 Arteriosclerotic cardiovascular disease (CMS/HCC) 01/15/2023 Colon cancer (CMS/HCC) 11/19/2012 DM II (diabetes mellitus, type II), controlled (CMS/HCC) 01/15/2023 GERD (gastroesophageal reflux disease) 01/15/2023 History of CO (myocardial infarction) (CMS/HCC) 01/15/2023 HTN (hypertension) (CMS/HCC) 01/15/2023 OJEDA (nonalcoholic steatohepatitis) 01/15/2023 Stage 2 chronic kidney disease 2022 Facial lesion 01/21/2023 CAD (coronary artery disease) (CMS/HCC) 06/10/2023 Chemotherapy-induced neutropenia ([facility]/HCC) 10/19/2022 Type 2 diabetes mellitus without complications ([facility]/HCC) 06/10/2023 Diastasis recti 01/15/2023 Encounter for Medicare annual wellness exam 06/10/2023 Neck muscle spasm 11/20/2023 Throat cancer ([facility]/HCC) 12/04/2023 Hyperlipidemia ([facility]/HCC) 12/16/2023 Resolved Ambulatory Problems Diagnosis Date Noted Overweight 12/15/2022 Acute pain of right shoulder 12/15/2022 Basal cell carcinoma (BCC) of face 12/15/2022 Chemotherapy-induced neutropenia ([facility]/HCC) 10/19/2022 Diastasis recti 01/15/2023 Disorder of prostate 01/15/2023 Glucose intolerance 01/15/2023 History of colonic polyps 01/15/2023 History of malignant neoplasm of colon 01/15/2023 Hypercholesterolemia ([facility]/HCC) 01/15/2023 Raynaud's syndrome 01/15/2023 Vitamin D deficiency 01/15/2023 Past Medical History: Diagnosis Date Diabetes (CMS/HCC) HCVD (hypertensive cardiovascular disease) ([facility]/HCC) Hx of myocardial infarction ([facility]/HCC) Hypertension ([facility]/HCC) Inguinal hernia, right Raynaud's disease Sinusitis Thyromegaly ([facility]/HCC) Type 2 diabetes mellitus ([facility]/HCC) Past Surgical History: Procedure Laterality Date CARDIAC CATHETERIZATION 2001 with stent placement CATARACT EXTRACTION COLECTOMY 02/2000 sigmoid colectomy with colostomy COLONOSCOPY LARYNGOSCOPY 07/31/2022 with biopsy, Lana Allergies Allergen Reactions Statins GI intolerance Current Outpatient Medications on File Prior to Visit Medication Sig Dispense Refill aspirin 81 MG EC tablet Take 81 mg by mouth 1 (one) time each day at the same time. cholecalciferol (Vitamin D-3) 25 MCG (1000 UT) tablet Take 25 mcg by mouth 1 (one) time each day at the same time. fenofibrate micronized (Lofibra) 134 MG capsule Take 1 capsule (134 mg) by mouth Daily 90 capsule 1 latanoprost (Xalatan) 0.005 % ophthalmic solution Administer 1 drop into both eyes Daily Magnesium 400 MG capsule Take by mouth metFORMIN (Glucophage) 500 MG tablet Take 1 tablet (500 mg) by mouth Daily 90 tablet 1 metoprolol succinate XL (Toprol-XL) 25 MG 24 hr tablet TAKE 1 TABLET BY MOUTH DAILY at the same time 90 tablet 1 [DISCONTINUED] metoprolol succinate XL (Toprol-XL) 25 MG 24 hr tablet Take 1 tablet (25 mg) by mouth 1 (one) time each day at the same time 90 tablet 1 No current facility-administered medications on file prior to visit. Objective Last Recorded Vitals Vitals: 02/25/24 0906 BP: (!) 193/96 ENT Physical Exam Constitutional Appearance: patient appears well-developed and well-nourished, Oral Cavity/Oropharynx OC/OP comments: OC/OP/IDL - no mass or ulcer Neck Neck comments: Supple, FROM, No LAD Assessment/Plan Diagnoses and all orders for this visit: Cancer of base of tongue (CMS/HCC) ANAHY. Monthly appts till July documented in this encounter [facility] 11-06-2023 History of Presen t illness Narrative [...] Lymph 1.00 - 4.00 k/uL 0.48 (L) Carlton% % 10.4 Abs Carlton <0.87 k/uL 0.32 Eosin% % 1.6 Abs [...] Feliz MD cc: Dr. Shaikh Vidal Estrada [address] [place] [address] documented in this encounter [facility] 11-06-2023 Note HNO ID: [id number] Author: Yordan FELIZ MD Service: ? Author [...] Lymph 1.00 - 4.00 k/uL 0.48 (L) Carlton% % 10.4 Abs Carlton <0.87 k/uL 0.32 Eosin% % 1.6 Abs [...] Oropharynx: Lips, mu (more content not included)... [facility] 10-23-2023 Instructions Kelli Merchant - 10/23/2023 11:[address] Neck and Chest in 6 months Labs same day, include anemia workup RTC 1 week after to review documented in this encounter [facility] 10-23-2023 History of Presen t illness Narrative Images from the original note were not included. NAME: Manish Root [facility] NO.: [id number] DATE OF SERVICE: October 23, 2023 (Jacquelyn) [...] Ca Stage 3 - 2/5 LN + [place] regimen on protocol Updated Visit, October 23, [...] which included preparing to see the patient, kkmo-xm-mmyh patient care, completing clinical documentation, performing a medically appropriate examination, counseling and educating the patient/family/caregiver, ordering medications, tests, or procedures, independently interpreting results (not separately reported), communicating results to the patient/family/caregiver, and care coordination (not separately reported). John England MD, CPE Hematology and Oncology Services Provided at: [place], [place] Scribe Attestation: This note was scribed [...] Dr. Yordan Morales documented in this encounter [facility] 10-23-2023 Note HNO ID: [id number] Author: JOHN ENGLAND MD Service: ? Author Type: Physician Type: Progress Notes Filed: 10/23/2023 22:31 Note Text: NAME: Dk Manish [facility] NO.: [id number] DATE OF SERVICE: October 23, 2023 (Jacquelyn) [...] Ca Stage 3 - 2/5 LN + [place] regimen on protocol Updated Visit, October 23, [...] night sweats and (more content not included)... [facility] 10-16-2023 Miscellaneous Notes Pt had labs drawn today. Requests that the results be faxed to his PCP, Dr Drake. Results of CBC and CMP faxed to [phone]. Rafael Meng RN documented in this encounter [facility] 10-16-2023 History of Presen t illness [...] PATIENT PRESENTS WITH AN IMPLANTABLE OR ATTACHED MOTHER SUPERIOR: No RADIOLOGY DEPARTMENT: CT; Exam(s) Completed: Chest and Neck PERIPHERAL IV DATA: Site assessment: Clean,Dry and Intact, Site disposition Discontinued SIGNED BY: RT Perlita(Ebonie) October 16, 2023 11:34 AM documented in this encounter [facility] 10-16-2023 Note HNO ID: [id number] Author: RAFAEL ZURITA RT(Ebonie) Service: ? Author [...] PATIENT PRESENTS WITH AN IMPLANTABLE OR ATTACHED MOTHER SUPERIOR: No RADIOLOGY DEPARTMENT: CT; Exam(s) Completed: Chest and Neck PERIPHERAL IV DATA: Site assessment: Clean,Dry and Intact, Site disposition Discontinued SIGNED BY: RT Perlita(R) October 16, 2023 11:34 AM [facility] 06-19-2023 Note HNO ID: [id number] Author: John England MD Service: ? Author Type: Physician Type: Progress Notes Filed: 06/20/2023 8:01 AM Note Text: NAME: Root Manish [facility] NO.: [id number] DATE OF SERVICE: June 19, 2023 (Jacquelyn) [...] Ca Stage 3 - 2/5 LN + [place] regimen on protocol Updated Visit, June 19, [...] difficulty swallowing. Updated Visit, October 19, 2022: Mnaish returns with Jahaira and is doing well. Feeling better but is neutropenic from chemotherapy. Really re-inforced education regarding neutropenia and fevers. Updated Visit, October 01, 2022: Manish Root returns for follow-up and treatment. He remains on weekly cisplatin concurrent with radiation and (more content not included)... [facility] 06-12-2023 History of Presen t illness [...] RT Perlita(R) June 12, 2023 8:18 AM documented in this encounter [facility] 06-12-2023 Note HNO ID: [id number] Author: Rafael Zuriat RT(Ebonie) Service: ? Author Type: Technologist Type: [...] RT Perlita(R) June 12, 2023 8:18 AM [facility] 06-12-2023 Note HNO ID: [id number] Author: Gisela Ruiz RN Service: ? Author [...] DATE: June 12, 2023 TIME: 8:07 AM [facility] 05-08-2023 History of Presen t illness [...] Feliz MD cc: Dr. Shaikh Vidal Estrada [address] [place] [address] documented in this encounter [facility] 03-20-2023 Instructions John England MD - 03/20/2023 1:[address] Chest in 3 months Labs same day RTC 1 week after to review. documented in this encounter [facility] 03-20-2023 History of Presen t illness Narrative Images from the original note were not included. NAME: Root Manish [facility] NO.: [id number] DATE OF SERVICE: March 20, 2023 ([facility]) Some elements in this clinic note that are critical to medical decision making have been carefully reviewed and included from a prior clinic note dated:February 06, 2023 (Jacquelyn) Referring Provider: Dr. Татьяна Feliz Additional Clinicians involved in Manish Kassidy Root's care: Serene Morales DIAGNOSIS: Base of [...] Ca Stage 3 - 2/5 LN + [place] regimen on protocol Updated Visit, March 20, [...] which included preparing to see the patient, qdzh-tv-cpkf patient care, completing clinical documentation, performing a medically appropriate examination, counseling and educating the patient/family/caregiver, ordering medications, tests, or procedures, independently interpreting results (not separately reported), communicating results to the patient/family/caregiver, and care coordination (not separately reported). John England MD, CPE Hematology and Oncology Services Provided at: [place], [place] CC: Dr. Yordan Morales documented in this encounter [facility] 03-14-2023 History of Presen t illness [...] Intact SIGNATURE: Maggie Partida RN PATIENT NAME: Manihs Root DATE: March 14, 2023 TIME: 1:55 [...] 2023 1:52 PM documented in this encounter [facility] 02-06-2023 Instructions John England MD - 02/06/2023 12:[address] Chest in 5 weeks RTC 6 weeks to review please documented in this encounter [facility] 02-06-2023 History of Presen t illness [...] Feliz MD cc: Dr. Shaikh Vidal Estrada [address] [place] [address] documented in this encounter [facility] 02-06-2023 History of Presen t illness Narrative Images from the original note were not included. NAME: Manish Root [facility] NO.: [id number] DATE OF SERVICE: February 06, 2023 (Colbymihaela) Some elements in this clinic note that [...] Ca Stage 3 - 2/5 LN + [place] regimen on protocol Updated Visit, February 06, [...] which included preparing to see the patient, wpyu-ov-spzf patient care, completing clinical documentation, performing a medically appropriate examination, counseling and educating the patient/family/caregiver, ordering medications, tests, or procedures, communicating with other HCPs (not separately reported), independently interpreting results (not separately reported), communicating results to the patient/family/caregiver, and care coordination (not separately reported). John England MD, CPE Hematology and Oncology Services Provided at: [place], [place] CC: Dr. Yordan Morales documented in this encounter [facility] 02-06-2023 Nurse Note Patient has easy bruising more so on arms, voice is always changing and has a lot of phlegm. Lala Hooper MA documented in this encounter [facility] 01-29-2023 History of Presen t illness [...] 1105 PATIENT DISCHARGED TO: [facility] patient[facility]. A Diagnostic radioactive procedure has taken place, with no further precautions necessary other than routine body substance precautions. More information regarding radiation safety can be found using this link: [email or web address]-%20Diagnostic% 20Nuclear%20Medicine%20Procedur es.pdf SIGNATURE: RT Aron(R) PATIENT NAME: Manish Root DATE: January 29, 2023 TIME: 11:48 AM PAGER/CONTACT #: documented in this encounter [facility] 11-28-2022 History of Presen t illness [...] by: Yordan Feliz MD cc: Mannie Nelson [facility] [place] [address] Maryam Hodgson [address] [place] [address] [place] [address] documented in this encounter [facility] 11-07-2022 Instructions John England MD - 11/07/2022 9:53 AM EDT Continue seeing Dr. Feliz and Dr. Morales. RTC in 12 -13 weeks (after PET is complete) PET per Dr. Feliz Coordinate return on same date as Dr. Feliz. Labs on day return documented in this encounter [facility] 11-07-2022 History of Presen t illness Narrative Images from the original note were not included. NAME: Manish Root [facility] NO.: [id number] DATE OF SERVICE: November 07, 2022 (Jacquelyn) [...] Ca Stage 3 - 2/5 LN + [place] regimen on protocol Updated Visit, November 07, [...] for cisplatin. Initial Visit, August 16, 2022: Manihs Root presents today Hematology and Oncology evaluation. [...] which included preparing to see the patient, mvbp-oz-tmhj patient care, completing clinical documentation, performing a medically appropriate examination, counseling and educating the patient/family/caregiver, ordering medications, tests, or procedures, and independently interpreting results (not separately reported). John England MD, CPE Hematology and Oncology Services Provided at: [place], [place] CC: Dr. Yordan Morales documented in this encounter [facility] 2022 Evaluation note Diagnosis 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 Stage 3 chronic kidney disease, unspecified whether stage 3a or 3b CKD (HCC) documented in this encounter [facility]04-26-2023 History of Present illness Narrative* Maryam Hodgson APRN.MILLWRIGHT HELPER - 10/31/2022 2:30 PM EDT Images from the original note were not included. NAME: Manish Root [facility] NO.: [id number] DATE OF SERVICE: October 31, 2022 (Surinder) [...] Ca Stage 3 - 2/5 LN + [place] regimen on protocol Updated Visit, October 31, [...] APRN.CNP Hematology and Oncology Services Provided at: [place], [place] CC: Dr. Yordan Morales I spent a total of 30 minutes on the date of the service which included preparing to see the patient, jvom-fb-tzmj patient care, completing clinical documentation, obtaining and/or reviewing separately obtained history, performing a medically appropriate examination, counseling and educating the pat ient/family/caregiver, ordering medications, tests, or procedures, independently interpreting results (not separately reported), and communicating results to the patient/family/caregiver. [facility] History of Present illness Narrative* Yordan [...] Signed by: Yordan Feliz MD cc: Mannie Das[address] [place] [address] Maryam Hodgson [address] [place] [address] [place] [address] [facility] History of Present illness Narrative* Maryam Hodgson APRN.MILLWRIGHT HELPER - 10/25/2022 10:01 AM EDT Images from the original note were not included. NAME: Manish Root [facility] NO.: [id number] DATE OF SERVICE: October 25, 2022 (Surinder) [...] Ca Stage 3 - 2/5 LN + [place] regimen on protocol Updated Visit, October 25, [...] APRN.CNP Hematology and Oncology Services Provided at: [place], [place] CC: Dr. Yordan Morales I spent a total of 30 minutes on the date of the service which included preparing to see the patient, caxx-hy-svxr patient care, completing clinical documentation, obtaining and/or reviewing separately obtained history, performing a medically appropriate examination, counseling and educating the pat ient/family/caregiver, ordering medications, tests, or procedures, independently interpreting results (not separately reported), and communicating results to the patient/family/caregiver. documented in this [facility] History of Present illness Narrative* Yordan Feliz MD - 10/22/2022 12:00 AM EDT [facility] Radiation Oncology Department RADIATION ONCOLOGY - COMPLETION NOTE PATIENT: MANISH ROOTBry: 1945 DATES OF TREATMENT: 09-03-2022 to 10-22-2022 [...] cc: Dr. 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 Neupogen 480 mcg x 1 today Needs to hydrate. Labs next Saturday CBC, CMP, possible hydration Stay for results - see Maryam documented in this encounterB[facility] History of Present illness Narrative* John England MD - 10/19/2022 10:05 AM EDT Images from the original note were not included. NAME: Manish Root [facility] NO.: [id number] DATE OF SERVICE: October 19, 2022 (Jacquelyn) [...] Ca Stage 3 - 2/5 LN + [place] regimen on protocol Updated Visit, October 19, [...] which included preparing to see the patient, pdij-fh-iwqz patient care, completing clinical documentation, obtaining and/or reviewing separately obtained history, counseling and educating the patient/family/caregiver, ordering medications, cliff ts, or procedures, and independently interpreting results (not separately reported). John England MD, CPE Hematology and Oncology Services Provided at: [place], [place] CC: Dr. Yordan Morales documented in this encounter[facility] History of Present illness Narrative* Yordan [...] discussed. Yordan Feliz MD documented in this encounterB[facility] Miscellaneous Notes* Telephone Encounter - Diana [...] recommendations? Diana García LPN documented in this encounterB[facility] History of Present illness Narrative* Yordan Feliz MD - 10/08/2022 10:49 AM EDT [...] and imaging reviewed. Continue radiation as outlined. Yrodan Feliz MD documented in this encounterB[facility] History of Present illness Narrative* Dee Gil RD - 10/05/2022 10:45 AM EDT Oncology Nutrition Therapy Progress Note Attemped to see patient, however patient left after radiation treatment and did not stay for appointment with dietitian. Signed by: Dee Gil, MS, RDN, LD documented in this encounterBrec[facility] History of Present illness Narrative* Maryam Hodgson APRN.MILLWRIGHT HELPER - 10/01/2022 11:26 AM EDT Images from the original note were not included. NAME: Dk Manish [facility] NO.: [id number] DATE OF SERVICE: October 01, 2022 (Surinder) Some elements in this clinic note that are critical to medical decision making have been carefully reviewed and included from a prior clinic note dated: September 10, 2022 (Dr. England) Referring Provider: Dr. Татьяна Feliz Additional Clinicians involved in Manishsybil Root's care: DIAGNOSIS: Base of Tongue squamous [...] Ca Stage 3 - 2/5 LN + [place] regimen on protocol Updated Visit, October 01, [...] No family history on file. Maryam Hodgson APRN.[facility] Hematology and Oncology Services Provided at: [place], [place] CC: Dr. Yordan Morales I spent a total of 30 minutes on the date of the service which included preparing to see the patient, sqld-ls-lxko patient care, completing clinical documentation, obtaining and/or reviewing separately obtained history, performing a medically appropriate examination, counseling and educating the pat ient/family/caregiver, ordering medications, tests, or procedures, independently interpreting results (not separately reported), and communicating results to the patient/family/caregiver. documented in this encounterB[facility] History of Present illness Narrative* Yordan [...] outlined. Yordan Feliz MD documented in this encounterB[facility] History of Present illness Narrative* Yordan [...] Continue radiation as outlined. documented in this encounterB[facility] History of Present illness Narrative* Dee [...] Dosing Weight: 84.8 kg Estimated kilocalorie needs: 6765-8049 kilocalories determined by 25-30 kcal/kg Estimated protein needs: 85-102 grams determined by 1.0-1.2 g/kg Current weight Estimated fluid needs: ~8108-8681 milliliters based on 1 mL per kcal [...] Gil MS, RDN, LD documented in this encounterBrec[facility] History of Present illness Narrative* G [...] Continue radiation as outlined. documented in this encounterB[facility] History of Present illness Narrative* Yordan [...] Continue radiation as outlined. documented in this encounterBrecksville [facility] Miscellaneous Notes* Telephone Encounter - ISH Waite - 09/07/2022 12:11 PM EST SOCIAL WORK FOLLOW UP NOTE: [facility] Date of service:09/07/22 Manish Yi Dk is being seen for a follow up social work visit. Today's visit includes: patient TOPICS ADDRESSED: community resources and [facility] PLAN: Assist with financial support applications and Continue follow up as needed F/U APPOINTMENT: PRN Assigned JEANNETTE listed in Care Team tab: Yes Patient dropped off a partial completed intake form for the [facility]. Jeannette completed the medical section of the form and faxed it to Maren at the [facility]. JEANNETTE called Maren to verify that the fax was received. JEANNETTE called Patient to let him know that his application was received and he needs to call Maren to talk about next steps. JEANNETTE will remain available and will follow up as appropriate. CHARLIE Waite documented in this encounterBrec[facility]ville [facility] Miscellaneous Notes* Telephone Encounter - Rafael [...] protocol. Rafael Meng RN documented in this encounterBrecksville [facility]02[facility] History of Present illness Narrative* Nica [...] ordered. Araceli Anne RN documented in this encounterBrecksville [facility]02-[facility] Instructions* Patient Instructions* John England MD - 09/03/2022 11:12 AM EST Start Cisplatin weekly to start with radiation Labs weekly please. RTC 1 week See Amina / Maryam Labs same day. documented in this encounterBrecksville [facility]02[facility] History of Present illness Narrative* John England MD - 09/03/2022 10:45 AM EST Images from the original note were not included. NAME: Dk Manish [facility] NO.: [id number] DATE OF SERVICE: September 03, 2022 (Jacquelyn) [...] Ca Stage 3 - 2/5 LN + [place] regimen on protocol Updated Visit, September 03, [...] which included preparing to see the patient, iicw-kc-gsij patient care, completing clinical documentation, performing a medically appropriate examination, counseling and educating the patient/family/caregiver, ordering medications, tests, or p rocedures, communicating with other HCPs (not separately reported), independently interpreting results (not separately reported), and care coordination (not separately reported). John England MD, CPE Hematology and Oncology Services Provided at: [place], [place] CC: MD Serene Mcclendon MD documented in this encounterBrecksville [facility] History of Present illness Narrative* Yordan [...] Continue radiation as prescribed. documented in this encounterBrecksville [facility]02[facility]23 Miscellaneous Notes* Telephone Encounter - Rafael Meng RN - 08/29/2022 12:52 PM EST Pt calls w/ questions pertaining to his upcoming treatment. Questions reviewed and answered. Pt denies any further questions at this time. Rafael Meng RN documented in this encounterBrecksville [facility]02[facility] Miscellaneous Notes* Telephone Encounter - Rafael [...] Thanks! Rafael Meng RN documented in this encounterBrecksville [facility] Miscellaneous Notes* Telephone Encounter - Rafael Meng RN - 08/27/2022 11:23 AM EST Pt had several questions pertaining to treatment while he was here today. Questions reviewed and answered in person. No additional questions noted. Appointment reminder provided to pt as well. Rafael Meng RN documented in this encounterBrecksville [facility] History of Present illness Narrative* Barry Burnett RN - 08/27/2022 8:45 AM EST [...] IV SITE APPEARANCE: Clean,Dry and Intact SIGNATURE: Barry Burnett RN PATIENT NAME: Manish Root DATE: August 27, 2022 TIME: 9:46 AM * Rafael Zurita RT(Ebonie) - 08/27/2022 8:45 AM EST RADIOLOGY SERVICE PROGRESS NOTE SERVICE DATE: 08/27/2022 SERVICE TIME: 9:53 AM PATIENT IDENTITY VERIFICATION COMPLETED USING TWO (2) STANDARD IDENTIFIERS: Name and Date of confirmed by patient verbally POST EXAM PIV STATUS: Discontinued PROCEDURE TYPE: NM INJECT: PET/CT BODY SCAN. 7.9 mCi F18 FDG. No other medications given.. ADMINISTRATION TIME: 0942 PATIENT DISCHARGED TO: Ambulatory patient[facility] left [facility] A Diagnostic radioactive procedure has taken place, with no further precautions necessary other than routine body substance precautions. More information regarding radiation safety can be found usingthis link: [email or web address] 20Diagnostic%20Nuclear%20Medicine%20Procedures.pdf SIGNATURE: TOM Bhat) PATIENT NAME: Manish Root DATE: August 27, 2022 TIME: 9:53 AM PAGER/CONTACT #: documented in this encounterCleveland [phone] Miscellaneous Notes* Telephone Encounter - Madonna Barnes [...] Thanks! Rafael Meng RN documented in this encounterBrec[facility] History of Present illness Narrative* G Jeyson Feliz MD - 08/23/2022 12:00 AM EST [place] [id number] 08/23/2022 [facility] Radiation Oncology Department SIMULATION NOTE DATE OF SIMULATION: 08/23/2022 THERAPIST: Vinita Calderon MACHINE: [employer] DIAGNOSIS: Malignant neoplasm of base of [id number] AREA: H&N CONTRAST: IV Consent in Epic: [...] / NRS 1:21 AM documented in this encounterBrecksville [facility] History of Present illness Narrative* Yordan Feliz MD - 08/23/2022 12:00 AM EST [place] [id number] 08/23/2022 [facility] Department of Radiation Oncology Treatment Planning Note [...] Feliz M.D. 0:14 AM documented in this encounterBrecksville [facility]02-14-[facility] Miscellaneous Notes* Telephone Encounter - Rafael Meng RN - 08/21/2022 3:16 PM EST Pt will be in on for education (Cisplatin). Scripts for antiemetics pended. Sincere: Please place chemotherapy orders. Thanks! Rafael Meng RN documented in this encounterBrecksville [facility]02-13-[facility] History of Present illness Narrative* Deemart Gil, KARLOS - 08/20/2022 7:27 AM EST [...] Dosing Weight: 84.7 kg Estimated kilocalorie needs: 0705-9703 kilocalories determined by 25-30 kcal/kg Estimated protein needs: 85-102 grams determined by 1.0-1.2 g/kg Dosing weight Estimated fluid needs: ~8539-5234 milliliters based on 1 mL per kcal [...] Gil MS, RDN, LD documented in this encounterBrecksville [facility]02-09-[facility]23 Instructions* Patient Instructions* John England MD - 08/16/2022 4:45 PM EST Will plan Cisplatin weekly to start with radiation Needs labs next visit at time of Sim. RTC prior to start Consent signed Needs education documented in this encounterBrecksville [facility]02-09-[facility]23 History of Present illness Narrative* John England MD - 08/16/2022 4:06 PM EST Images from the original note were not included. NAME: Manish Root [facility] NO.: [id number] DATE OF SERVICE: August 16, 2022 Referring [...] Ca Stage 3 - 2/5 LN + [place] regimen on protocol Initial Visit, August 16, [...] which included preparing to see the patient, [id number] patient care, completing clinical documentation, performing a medically appropriate examination, counseling and educating the patient/family/caregiver, ordering medications, tests, or p rocedures, communicating with other HCPs (not separately reported), independently interpreting results (not separately reported), and care coordination (not separately reported). John England MD, CPE Hematology and Oncology Services Provided at: [place], [place] CC: MD Serene Mcclendon MD documented in this encounterBrecksville [facility]02-08-2023 Miscellaneous Notes* Telephone Encounter - Randal Pittoten - 08/15/2022 1:14 PM EST Patient called back and said that he is scheduled at [facility] in [place], [place] 08/15/22. Dental evaluation form has been faxed to: [phone]. Randal Brooks * Telephone Encounter - Randal Brooks - 08/15/2022 11:47 AM EST Patient has been scheduled for dental appointment at [facility] on 09/04. Due to the nature [...] Samayoa RN - 08/15/2022 9:56 AM EST [facility] will need referral placed to see pt and schedule dental eval for clearance. Dr Dave- can you please sign in Dr Feliz's absence? Thank you Nela Samayoa RN documented in this encounterBrecksville [facility]02-07-[facility]23 History of Present illness Narrative* G Jeyson [...] voice changes that his family noticed at [facility], and he has had approximate 11 [...] the lung. Would recommend concurrent radiation with squaxin based chemotherapy. Patient is eligible for current [...] Yordan Feliz MD cc: Mannie Nelson [address] [place] [address] Serene Morales MD [address] [place] [id number] documented in this encounterBrecksville [facility]02-07-2023 Nurse Note* Nela Samayoa RN - 08/14/2022 10:58 AM EST Radiation Therapy - Patient Education Note PATIENT NAME: Manish Root PATIENT August 14, 2022 [facility] FACILITY/LOCATION: [facility] READINESS TO LEARN Cognitive Ability: Alert and [...] Given Referral (recommendation): Dietitian Signed by: Nela Samayoa, RN documented in this encounterBrecksville [facility]01-24-2023 NoteOPERATIVE NOTE OPERATION DATE: 07/31/2022 PRIMARY [...] to the recovery room in good condition.[facility] [id number] NoteOPERATIVE NOTE OPERATION DATE: 07/18/2022 PREOPERATIVE DIAGNOSIS: [...] the pathology results. CC: Patient's family physicianThe [facility] Community [id number] NoteChief Complaint consultation for colon recall HPI [...] Oral, Daily ergocalciferol 50,000 intl units Cap, 54737 International_Unit= 1 cap(s), Oral, qWeek fenofibrate 134 [...] 06/13/2022 Family History Patient (more content not included)...[facility] CenterComment on above:Result Comment: Electronically Signed By: JAQUAN WELCH, Renea Anderson\Date and Time Signed: 06/13/22 15:31 [id number] History of Past illness Narrative* Problem Noted Date Resolved Date 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/28/20 15 04/28/2015 documented as of this encounter (statuses as of 08/14/2022) [address]22-2015 History of Past illness Narrative* Problem Noted Date Resolved Date 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/28/20 15 04/28/2015 documented as of this encounter (statuses as of 08/14/2022) [address]22-2015 History of Past illness Narrative* Problem Noted Date Resolved Date 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/28/20 15 04/28/2015 documented as of this encounter (statuses as of 08/15/2022) [address]22-2015 History of Past illness Narrative* Problem Noted Date Resolved Date 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/28/20 15 04/28/2015 documented as of this encounter (statuses as of 08/17/2022) [address]22-2015 History of Past illness Narrative* Problem Noted Date Resolved Date 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/28/20 15 04/28/2015 documented as of this encounter (statuses as of 08/20/2022) [address]22-2015 History of Past illness Narrative* Problem Noted Date Resolved Date 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/28/20 15 04/28/2015 documented as of this encounter (statuses as of 08/22/2022) [address]22[address]2015 History of Past illness Narrative* Problem Noted Date Resolved Date 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/28/20 15 04/28/2015 documented as of this encounter (statuses as of 08/22/2022) [address]22[address]2015 History of Past illness Narrative* Problem Noted Date Resolved Date 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/28/20 15 04/28/2015 documented as of this encounter (statuses as of 08/24/2022) [address]22-2015 History of Past illness Narrative* Problem Noted Date Resolved Date 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/28/20 15 04/28/2015 documented as of this encounter (statuses as of 08/24/2022) [address]22[address]2015 History of Past illness Narrative* Problem Noted Date Resolved Date 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/28/20 15 04/28/2015 documented as of this encounter (statuses as of 08/27/2022) [address]22[address]2015 History of Past illness Narrative* Problem Noted Date Resolved Date 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/28/20 15 04/28/2015 documented as of this encounter (statuses as of 08/27/2022) [address]22[address]2015 History of Past illness Narrative* Problem Noted Date Resolved Date 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/28/20 15 04/28/2015 documented as of this encounter (statuses as of 08/28/2022) [address]22[address]2015 History of Past illness Narrative* Problem Noted Date Resolved Date 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/28/20 15 04/28/2015 documented as of this encounter (statuses as of 08/29/2022) [address]22[address]2015 History of Past illness Narrative* Problem Noted Date Resolved Date 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/28/20 15 04/28/2015 documented as of this encounter (statuses as of 09/03/2022) [address]22[address]2015 History of Past illness Narrative* Problem Noted Date Resolved Date 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/28/20 15 04/28/2015 documented as of this encounter (statuses as of 09/03/2022) [address]22[address]2015 History of Past illness Narrative* Problem Noted Date Resolved Date 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/28/20 15 04/28/2015 documented as of this encounter (statuses as of 09/04/2022) [address]22[address]2015 History of Past illness Narrative* Problem Noted Date Resolved Date 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/28/20 15 04/28/2015 documented as of this encounter (statuses as of 09/06/2022) [address]22[address]2015 History of Past illness Narrative* Problem Noted Date Resolved Date 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/28/20 15 04/28/2015 documented as of this encounter (statuses as of 09/07/2022) [address]22[address]2015 History of Past illness Narrative* Problem Noted Date Resolved Date 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/28/20 15 04/28/2015 documented as of this encounter (statuses as of 09/10/2022) [address]22[address]2015 History of Past illness Narrative* Problem Noted Date Resolved Date 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/28/20 15 04/28/2015 documented as of this encounter (statuses as of 09/10/2022) [address]22[address]2015 History of Past illness Narrative* Problem Noted Date Resolved Date 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/28/20 15 04/28/2015 documented as of this encounter (statuses as of 09/11/2022) [address]22[address]2015 History of Past illness Narrative* Problem Noted Date Resolved Date 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/28/20 15 04/28/2015 documented as of this encounter (statuses as of 09/17/2022) [address]22-2015 History of Past illness Narrative* Problem Noted Date Resolved Date 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/28/20 15 04/28/2015 documented as of this encounter (statuses as of 09/18/2022) [address]22-2015 History of Past illness Narrative* Problem Noted Date Resolved Date 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/28/20 15 04/28/2015 documented as of this encounter (statuses as of 09/21/2022) [address]22-2015 History of Past illness Narrative* Problem Noted Date Resolved Date 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/28/20 15 04/28/2015 documented as of this encounter (statuses as of 09/24/2022) [address]22-2015 History of Past illness Narrative* Problem Noted Date Resolved Date 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/28/20 15 04/28/2015 documented as of this encounter (statuses as of 10/01/2022) [address]22-2015 History of Past illness Narrative* Problem Noted Date Resolved Date 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/28/20 15 04/28/2015 documented as of this encounter (statuses as of 10/03/2022) [address]22-2015 History of Past illness Narrative* Problem Noted Date Resolved Date 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/28/20 15 04/28/2015 documented as of this encounter (statuses as of 10/05/2022) [address]22-2015 History of Past illness Narrative* Problem Noted Date Resolved Date 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/28/20 15 04/28/2015 documented as of this encounter (statuses as of 10/08/2022) [address]22-2015 History of Past illness Narrative* Problem Noted Date Resolved Date 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/28/20 15 04/28/2015 documented as of this encounter (statuses as of 10/09/2022) [address]22-2015 History of Past illness Narrative* Problem Noted Date Resolved Date 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/28/20 15 04/28/2015 documented as of this encounter (statuses as of 10/11/2022) [address]22-2015 History of Past illness Narrative* Problem Noted Date Resolved Date 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/28/20 15 04/28/2015 documented as of this encounter (statuses as of 10/15/2022) [address]22-2015 History of Past illness Narrative* Problem Noted Date Resolved Date 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/28/20 15 04/28/2015 documented as of this encounter (statuses as of 10/19/2022) [address]22-2015 History of Past illness Narrative* Problem Noted Date Resolved Date 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/28/20 15 04/28/2015 documented as of this encounter (statuses as of 10/20/2022) [address]22-2015 History of Past illness Narrative* Problem Noted Date Resolved Date 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/28/20 15 04/28/2015 documented as of this encounter (statuses as of 10/26/2022) [address]22-2015 History of Past illness Narrative* Problem Noted Date Resolved Date 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/28/20 15 04/28/2015 documented as of this encounter (statuses as of 2022) [address]22-2015 History of Past illness Narrative* Problem Noted Date Resolved Date 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/28/20 15 04/28/2015 documented as of this encounter (statuses as of 2022) [address]22-2015 History of Past illness Narrative* Problem Noted Date Resolved Date 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/28/20 15 04/28/2015 documented as of this encounter (statuses as of 2022) [address]22-2015 History of Past illness Narrative* Problem Noted Date Resolved Date 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/28/20 15 04/28/2015 documented as of this encounter (statuses as of 11/07/2022) [address]22-2015 History of Past illness Narrative* Problem Noted Date Resolved Date 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/28/20 15 04/28/2015 documented as of this encounter (statuses as of 11/07/2022) [address] History of Past illness Narrative* Problem Noted Date Resolved Date 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/28/20 15 04/28/2015 documented as of this encounter (statuses as of 12/04/2022) [address]22-2015 History of Past illness Narrative* Problem Noted Date Diagnosed Date Resolved Date 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 04/28/2015 documented as of this encounter (statuses as of 02/06/2023) [address]22-2015 History of Past illness Narrative* Problem Noted Date Diagnosed Date Resolved Date 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 04/28/2015 documented as of this encounter (statuses as of 02/06/2023) [address]22-2015 History of Past illness Narrative* Problem Noted Date Diagnosed Date Resolved Date 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 04/28/2015 documented as of this encounter (statuses as of 02/11/2023) [address] History of Past illness Narrative* Problem Noted Date Diagnosed Date Resolved Date 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 04/28/2015 documented as of this encounter (statuses as of 03/20/2023) [address]22-2015 History of Past illness Narrative* Problem Noted Date Diagnosed Date Resolved Date 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 04/28/2015 documented as of this encounter (statuses as of 05/15/2023) [address]22[address]2015 History of Past illness Narrative* Problem Noted Date Diagnosed Date Resolved Date 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 04/28/2015 documented as of this encounter (statuses as of 10/17/2023) [facility] No data available for this section General Surgery [place] Evaluation note* Diagnosis 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, unspecified site operations manager and neck cancer (HCC) Malignant neoplasm of head, face, and neck documented in this encounter [facility]* Diagnosis Tongue cancer (HCC)- Primary Malignant [...] induced neutropenia [facility] Diagnosis Cancer of the base of [...] CKD (HCC) [facility]* Diagnosis 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 [facility]* Diagnosis Hyperlipidemia, unspecified hyperlipidemia type- Primary Type 2 diabetes mellitus without complication, unspecified whether chcf insulin use (HCC) Unspecified essential hypertension documented [...] face, and neck documented in this encounter [facility]Evaluation noteNo assessment information availableDelaware County Hospital Work Phone: Evaluation note* Diagnosis Lung nodules Other nonspecific abnormal finding of lung field 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) documented in this encounter [facility]* Diagnosis 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) Mass of right lung documented in this encounter [facility]* Diagnosis Lung nodules Other nonspecific abnormal finding of lung field documented in this encounter [facility]* Diagnosis 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) documented in this encounter [facility]* Diagnosis Tongue cancer (HCC) 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, unspecified site operations manager and neck cancer (HCC) Malignant neoplasm of head, face, and neck documented in this encounter [facility]* Diagnosis Primary hypertension (CMS/HCC)- Primary Unspecified essential hypertension Coronary artery disease involving [place] coronary artery of [place] heart without angina pectoris (CMS/HCC) Controlled type 2 diabetes mellitus without complication, without long-term current use of insulin (CMS/HCC) Encounter for Medicare annual wellness exam Neck muscle spasm- Primary Type 2 diabetes mellitus without complications (CMS/HCC) Controlled type 2 diabetes mellitus without complication, without long-term current use of insulin (CMS/HCC) Stage 2 chronic kidney disease- Primary Type 2 diabetes mellitus without complication, without long-term current use of insulin (CMS/HCC) Primary hypertension (CMS/HCC) Unspecified essential hypertension Hyperlipidemia, unspecified hyperlipidemia type (CMS/HCC) Coronary artery disease involving [place] coronary artery of [place] heart without angina pectoris (CMS/HCC) Controlled type 2 diabetes mellitus without complication, without long-term current use of insulin (CMS/HCC) 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 [facility]* Diagnosis 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 Other nonspecific abnormal finding of lung field documented in this encounter [facility]* Diagnosis Primary hypertension (CMS/HCC)- Primary Unspecified essential hypertension Coronary artery disease involving [place] coronary artery of [place] heart without angina pectoris (CMS/HCC) Controlled type 2 diabetes mellitus without complication, without long-term current use of insulin (CMS/HCC) Encounter for Medicare annual wellness exam Neck muscle spasm- Primary Type 2 diabetes mellitus without complications (CMS/HCC) Controlled type 2 diabetes mellitus without complication, without long-term current use of insulin (CMS/HCC) Stage 2 chronic kidney disease- Primary Type 2 diabetes mellitus without complication, without long-term current use of insulin (CMS/HCC) Primary hypertension (CMS/HCC) Unspecified essential hypertension Hyperlipidemia, unspecified hyperlipidemia type (CMS/HCC) Coronary artery disease involving [place] coronary artery of [place] heart without angina pectoris (CMS/HCC) Controlled type 2 diabetes mellitus without complication, without long-term current use of insulin (CMS/HCC) Primary hypertension (CMS/HCC)- Primary Unspecified essential hypertension Controlled type 2 diabetes mellitus without complication, without long-term current use of insulin (CMS/HCC) Coronary artery disease involving [place] coronary artery of [place] heart without angina pectoris (CMS/HCC) documented in this encounter [facility]* Diagnosis 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 Lung nodules Other nonspecific abnormal finding of lung field Stage 3 chronic kidney disease, unspecified whether stage 3a or 3b CKD (HCC) [facility] Head and neck cancer (HCC)- Primary Malignant neoplasm of head, face, and neck documented in this [facility]* Diagnosis Primary hypertension (CMS/HCC)- Primary Unspecified essential hypertension Coronary artery disease involving [place] coronary artery of [place] heart without angina pectoris (CMS/HCC) Controlled type 2 diabetes mellitus without complication, without long-term current use of insulin (CMS/HCC) Encounter for Medicare annual wellness exam Neck muscle spasm- Primary Type 2 diabetes mellitus without complications (CMS/HCC) Controlled type 2 diabetes mellitus without complication, without long-term current use of insulin (CMS/HCC) Stage 2 chronic kidney disease- Primary Type 2 diabetes mellitus without complication, without long-term current use of insulin (CMS/HCC) Primary hypertension (CMS/HCC) Unspecified essential hypertension Hyperlipidemia, unspecified hyperlipidemia type (CMS/HCC) Coronary artery disease involving [place] coronary artery of [place] heart without angina pectoris (CMS/HCC) Controlled type 2 diabetes mellitus without complication, without long-term current use of insulin (CMS/HCC) Primary hypertension (CMS/HCC) Unspecified essential hypertension documented in this encounter [facility]* Diagnosis Primary hypertension (CMS/HCC)- Primary Unspecified essential hypertension Coronary artery disease involving [place] coronary artery of [place] heart without angina pectoris (CMS/HCC) Controlled type 2 diabetes mellitus without complication, without long-term current use of insulin (CMS/HCC) Encounter for Medicare annual wellness exam Neck muscle spasm- Primary Type 2 diabetes mellitus without complications (CMS/HCC) Controlled type 2 diabetes mellitus without complication, without long-term current use of insulin (CMS/HCC) Stage 2 chronic kidney disease- Primary Type 2 diabetes mellitus without complication, without long-term current use of insulin (CMS/HCC) Primary hypertension (CMS/HCC) Unspecified essential hypertension Hyperlipidemia, unspecified hyperlipidemia type (CMS/HCC) Coronary artery disease involving [place] coronary artery of [place] heart without angina pectoris (CMS/HCC) Controlled type 2 diabetes mellitus without complication, without long-term current use of insulin (CMS/HCC) Seborrheic keratosis- Primary Actinic keratosis documented in this encounter [facility]* Diagnosis Primary hypertension (CMS/HCC)- Primary Unspecified essential hypertension Coronary artery disease involving [place] coronary artery of [place] heart without angina pectoris (CMS/HCC) Controlled type 2 diabetes mellitus without complication, without long-term current use of insulin (CMS/HCC) Encounter for Medicare annual wellness exam Neck muscle spasm- Primary Type 2 diabetes mellitus without complications (CMS/HCC) Controlled type 2 diabetes mellitus without complication, without long-term current use of insulin (CMS/HCC) Stage 2 chronic kidney disease- Primary Type 2 diabetes mellitus without complication, without long-term current use of insulin (CMS/HCC) Primary hypertension (CMS/HCC) Unspecified essential hypertension Hyperlipidemia, unspecified hyperlipidemia type (CMS/HCC) Coronary artery disease involving [place] coronary artery of [place] heart without angina pectoris (CMS/HCC) Controlled type 2 diabetes mellitus without complication, without long-term current use of insulin (CMS/HCC) 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 documented [facility] Diagnosis 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 documented in [facility]* Diagnosis Primary hypertension (CMS/HCC)- Primary Unspecified essential hypertension Coronary artery disease involving [place] coronary artery of [place] heart without angina pectoris (CMS/HCC) Controlled type 2 diabetes mellitus without complication, without long-term current use of insulin ([facility]) Encounter for Medicare annual wellness exam Neck muscle spasm- Primary Type 2 diabetes mellitus without complications (CMS/HCC) Controlled type 2 diabetes mellitus without complication, without long-term current use of insulin (CMS/HCC) Stage 2 chronic kidney disease- Primary Type 2 diabetes mellitus without complication, without long-term current use of insulin (CMS/HCC) Primary hypertension (CMS/HCC) Unspecified essential hypertension Hyperlipidemia, unspecified hyperlipidemia type (CMS/HCC) Coronary artery disease involving [place] coronary artery of [place] heart without angina pectoris (CMS/HCC) Controlled type 2 diabetes mellitus without complication, without long-term current use of insulin (CMS/HCC) 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 documented [facility] Diagnosis 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 documented in [facility]* Diagnosis Primary hypertension (CMS/HCC)- Primary Unspecified essential hypertension Coronary artery disease involving [place] coronary artery of [place] heart without angina pectoris (CMS/HCC) Controlled type 2 diabetes mellitus without complication, without long-term current use of insulin ([facility]) Encounter for Medicare annual wellness exam Neck muscle spasm- Primary Type 2 diabetes mellitus without complications (CMS/HCC) Controlled type 2 diabetes mellitus without complication, without long-term current use of insulin (CMS/HCC) Stage 2 chronic kidney disease- Primary Type 2 diabetes mellitus without complication, without long-term current use of insulin (CMS/HCC) Primary hypertension (CMS/HCC) Unspecified essential hypertension Hyperlipidemia, unspecified hyperlipidemia type (CMS/HCC) Coronary artery disease involving [place] coronary artery of [place] heart without angina pectoris (CMS/HCC) Controlled type 2 diabetes mellitus without complication, without long-term current use of insulin (/HCC) Need for vaccination Need for prophylactic vaccination and inoculation against unspecified single disease documented in this [facility] Diagnosis Primary hypertension (CMS/HCC)- Primary Unspecified essential hypertension Coronary artery disease involving [place] coronary artery of [place] heart without angina pectoris (CMS/HCC) Controlled type 2 diabetes mellitus without complication, without long-term current use of insulin ([facility]/HCC) Encounter for Medicare annual wellness exam Neck muscle spasm- Primary Type 2 diabetes mellitus without complications (CMS/HCC) Controlled type 2 diabetes mellitus without complication, without long-term current use of insulin (CMS/HCC) Stage 2 chronic kidney disease- Primary Type 2 diabetes mellitus without complication, without long-term current use of insulin (CMS/HCC) Primary hypertension (CMS/HCC) Unspecified essential hypertension Hyperlipidemia, unspecified hyperlipidemia type (CMS/HCC) Coronary artery disease involving [place] coronary artery of [place] heart without angina pectoris (CMS/HCC) Controlled type 2 diabetes mellitus without complication, without long-term current use of insulin (CMS/HCC) 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 documented in this encounter [facility]* Diagnosis Primary hypertension (CMS/HCC)- Primary Unspecified essential hypertension Coronary artery disease involving [place] coronary artery of [place] heart without angina pectoris (CMS/HCC) Controlled type 2 diabetes mellitus without complication, without long-term current use of insulin (CMS/HCC) Encounter for Medicare annual wellness exam Neck muscle spasm- Primary Type 2 diabetes mellitus without complications (CMS/HCC) Controlled type 2 diabetes mellitus without complication, without long-term current use of insulin (CMS/HCC) Stage 2 chronic kidney disease- Primary Type 2 diabetes mellitus without complication, without long-term current use of insulin (CMS/HCC) Primary hypertension (CMS/HCC) Unspecified essential hypertension Hyperlipidemia, unspecified hyperlipidemia type (CMS/HCC) Coronary artery disease involving [place] coronary artery of [place] heart without angina pectoris (CMS/HCC) Controlled type 2 diabetes mellitus without complication, without long-term current use of insulin (CMS/HCC) Routine general medical examination at health care facility- Primary Routine general medical examination at a health care facility ACP (advance care planning) Other specified counseling Hyperlipidemia, unspecified (CMS/HCC) Secondary and unspecified malignant neoplasm of lymph nodes of head, face and neck (CMS/HCC) OJEDA (nonalcoholic steatohepatitis) Other chronic nonalcoholic liver disease Moderate mixed hyperlipidemia not requiring statin therapy (CMS/HCC) Prostate cancer screening Special screening for malignant neoplasm of prostate 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, without long-term current use of insulin (CMS/HCC) Torticollis Torticollis, unspecified Actinic keratosis documented in this encounter [facility]* Diagnosis Primary hypertension (CMS/HCC)- Primary Unspecified essential hypertension Coronary artery disease involving [place] coronary artery of [place] heart without angina pectoris (CMS/HCC) Controlled type 2 diabetes mellitus without complication, without long-term current use of insulin ([facility]) Encounter for Medicare annual wellness exam Neck muscle spasm- Primary Type 2 diabetes mellitus without complications ([facility]) Controlled type 2 diabetes mellitus without complication, without long-term current use of insulin ([facility]) Stage 2 chronic kidney disease- Primary Type 2 diabetes mellitus without complication, without long-term current use of insulin ([facility]) Primary hypertension ([facility]) Unspecified essential hypertension Hyperlipidemia, unspecified hyperlipidemia type ([facility]) Coronary artery disease involving [place] coronary artery of [place] heart without angina pectoris ([facility]) Controlled type 2 diabetes mellitus without complication, without long-term current use of insulin ([facility]) Seborrheic keratosis- Primary Actinic keratosis Seborrheic keratosis, inflamed [facility] Dis[facility] instructions No data available for this section General Surgery [employer] Progress note No data available for this section General Surgery Bull Reason for referral (narrative)* Diagnostic Procedure Only (Routine) - Authorized Specialty Diagnoses / Procedures Referred By Jemima vyas Referred To Contact MOLECULAR & FUNCTIONAL IMAGING Diagnoses 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) Procedures NM PET/CT SKULL-THIGH SUBSEQUENT PET IMAGING CT ATTENUATION SKULL BASE MID-THIGH Yordan Feliz MD [address] [address] [place] [address] Molecular & Functional Imaging [address] [place] [address] Referral ID Status Reason Start Date Expiration Date Visits Requested Visits Authorized [id number] Authorized Auto-Generat ed Referral 01/28/2023 12/28/2023 1 1 [facility] for referral (narrative)* Diagnostic Procedure Only (Routine) - Closed Specialty Diagnoses / Procedures Referred By eJmima vyas Referred To Contact MOLECULAR & FUNCTIONAL IMAGING Diagnoses 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) Procedures NM PET/CT SKULL-THIGH SUBSEQUENT PET IMAGING CT ATTENUATION SKULL BASE MID-THIGH Yordan Feliz MD [address] [place] [address] [place] [address] Molecular & Functional Imaging [address] [place], [place] [id number] Referral ID Status Reason Start Date Expiration Date V isits Requested Visits Authorized [id number] Closed Auto-Generate d Referral 01/28/2023 12/28/2023 1 1 [facility] Diagnostic Procedure Only (Routine) - Closed Specialty Diagnoses / Procedures Referred By Contac t Referred To Contact MOLECULAR & FUNCTIONAL IMAGING Diagnoses Tongue cancer (HCC) Head and neck cancer (HCC) Procedures NM PET/CT SKULL-THIGH INITIAL PET IMAGING CT ATTENUATION SKULL BASE MID-THIGH Yordan Feliz MD [facility] [place] [address] Molecular & Functional Imaging [address] [place] [address] Referral ID Status Reason Start Date Expiration Date V isits Requested Visits Authorized [id number] Closed Auto-Generate d Referral 08/14/2022 09/13/2023 1 1 [facility] Summary Purpose Family History No Family History [...] COMPUTED TOMOGRAPHY THORAX W/CONTRAST John England MD [address] [place] [address] [place] [address] Referral ID Status Reason Start Date Expiration Date Visits Requested Visits Authorized [id number] Authorized Auto-Generat ed Referral 3 04/18/2024 1 1 Specialty Diagnoses / Procedures Referred By Contac t Referred To Contact CT IMAGING Diagnoses Lung nodules Procedures CT CHEST W IVCON DIAGNOSTIC COMPUTED TOMOGRAPHY THORAX W/CONTRAST John England MD [address] [facility] [place] [address] Ct Imaging Referral ID Status Reason Start Date Expiration Date Visits Requested Visits Authorized [id number] Authorized Auto-Generat ed Referral 03/13/2023 03/07/2024 1 1 Specialty Diagnoses / Procedures Referred By Contac t Referred To Contact Diagnoses Tongue cancer (HCC) Procedures CT SIM PLANNING RADIATION ONCOLOGY THER RAD SIMULAJ-AIDED FIELD SETTING COMPLEX Yordan Feliz MD [address] [place] [address] [place] [address] Referral ID Status Reason Start Date Expiration Date Visits Requested Visits Authorized [id number] Pending Review PCP Requested Referral 08/23/2022 11/21/2022 1 1 Specialty Diagnoses / Procedures Referred By Contac t Referred To Contact Dentistry Diagnoses Tongue cancer (HCC) Procedures CONSULT TO DENTISTRY OFFICE/OUTPATIENT [facility] [employer] [facility] 60-74 MINUTES Travis Dave MD [address] [place] [address] [place] [address] Referral ID Status Reason Start Date Expiration Date Visits Requested Visits Authorized [id number] Pending Review PCP Requested Referral 08/15/2022 08/15/2023 1 1 Specialty Diagnoses / Procedures Referred By Contac t Referred To Contact Oncology Diagnoses Head and neck cancer (HCC) Procedures CONSULT TO ONCOLOGY OFFICE/OUTPATIENT [facility] 60-74 MINUTES Yordan Feliz MD [address] [place] [address] [place] [address] Referral ID Status Reason Start Date Expiration Date Visits Requested Visits Authorized [id number] Authorized PCP Requested Referral 08/14/2022 08/14/2023 1 1 Specialty Diagnoses / Procedures Referred By Contac t Referred To Contact MOLECULAR & FUNCTIONAL IMAGING Diagnoses Tongue cancer (HCC) Head and neck cancer (HCC) Procedures NM PET/CT SKULL-THIGH INITIAL PET IMAGING CT ATTENUATION SKULL BASE MID-THIGH Yordan Feliz MD [address] [place] [address] Molecular & Functional Imaging [address] [id number] Referral ID Status Reason Start Date Expiration Date Visits Requested Visits Authorized [id number] Pending Review Auto-Generat ed Referral 08/14/2022 09/13/2023 [...] team informatio n (unrecognized section and content) Tank Builder Helper Relationship Specialty Start Date End Date Mannie Nelson MD [address] [place] [address] PCP - General Family Medicine 11/16/11 Tank Builder Helper Relationship Specialty Start Date End Date Mannie Nelson MD [address] [place] [address] PCP - General Family Medicine 11/16/11 Tank Builder Helper Relationship Specialty Start Date End Date Mannie Nelson MD [address] [place] [address] PCP - General Family Medicine 11/16/11 Tank Builder Helper Relationship Specialty Start Date End Date Mannie Nelson MD [address] [place] [address] PCP - General Family Medicine 11/16/11 Tank Builder Helper Relationship Specialty Start Date End Date Mannie Nelson MD [address] [place] [address] PCP - General Family Medicine 11/16/11 Dee Gil, RD [address] [place] [address] [place] [address] Registered Dietitian Nutrition 08/20/22 Tank Builder Helper Relationship Specialty Start Date End Date Mannie Nelson MD [address] [place] [address] PCP - General Family Medicine 11/16/11 Dee Gil, KARLOS [address] [place] [address] Registered Dietitian Nutrition 08/20/22 John England MD [address] [place] [address] Physician Hematology/Oncology 08/21/22 Maryam Hodgson, VEHICLE FUEL SYSTEMS CONVERTER.MILLWRIGHT HELPER [address] [place] [address] Nurse Practitioner Hematology/Oncology 08/21/22 Rafael Meng, [place] [address] [place] [address] Specialty Personal Loan Specialist Hematology/Oncology 08/21/22 Yordan Feliz MD [address] [place] [address] Physician Radiation Oncology 08/21/22 Tank Builder Helper Relationship Specialty Start Date End Date Mannie Nelson MD [address] [place] [address] PCP - General Family Medicine 11/16/[address] [place] [address] Registered Dietitian Nutrition 08/20/22 John England MD [address] [place] [address] Physician Hematology/Oncology 08/21/22 Maryam Hodgson, VEHICLE FUEL SYSTEMS CONVERTER.MILLWRIGHT HELPER [address] [place] [address] Nurse Practitioner Hematology/Oncology 08/21/22 Rafael Meng, RN [address] [place] [address] Specialty Personal Loan Specialist Hematology/Oncology 08/21/22 Yordan Feliz MD [address] [place] [address] [place] [address] Physician Radiation Oncology 08/21/22 Tank Builder Helper Relationship Specialty Start Date End Date Mannie Nelson MD [address] [place] [address] PCP - General Family Medicine 11/16/[address] [place] [address] Registered Dietitian Nutrition 08/20/22 John England MD [address] [place] [address] [place] [address] Physician Hematology/Oncology 08/21/22 Maryam Hodgson, VEHICLE FUEL SYSTEMS CONVERTER.MILLWRIGHT HELPER [address] [place] [address] Nurse Practitioner Hematology/Oncology 08/21/22 Rafael Meng, [place] [address] [place] [address] Specialty Personal Loan Specialist Hematology/Oncology 08/21/22 Yordan Feliz MD [address] [place] [address] [place] [address] Physician Radiation Oncology 08/21/22 Tank Builder Helper Relationship Specialty Start Date End Date Mannie Nelson MD [address] [place] [address] PCP - General Family Medicine 11/16/[address] [place] [address] Registered Dietitian Nutrition 08/20/22 John England MD [address] [place], [place] [address] Physician Hematology/Oncology 08/21/22 Maryam Hodgson, VEHICLE FUEL SYSTEMS CONVERTER.[facility] [address] [place] [address] Nurse Practitioner Hematology/Oncology 08/21/22 Rafael Meng, RN [address] [place] [address] Specialty Personal Loan Specialist Hematology/Oncology 08/21/22 Yordan Feliz MD [address] [place] [address] Physician Radiation Oncology 08/21/22 Tank Builder Helper Relationship Specialty Start Date End Date Mannie Nelson MD [address] [place] [address] PCP - General Family Medicine 11/16/11 Dee Gil, KARLOS [address] [place] [address] Registered Dietitian Nutrition 08/20/22 John England MD [address] [place] [address] Physician Hematology/Oncology 08/21/22 Maryam Hodgson, VEHICLE FUEL SYSTEMS CONVERTER.[facility] [address] [place] [address] Nurse Practitioner Hematology/Oncology 08/21/22 Rafael Meng, [place] [address] [place] [address] Specialty Personal Loan Specialist Hematology/Oncology 08/21/22 Yordan Feliz MD [address] [place] [address] Physician Radiation Oncology 08/21/22 Tank Builder Helper Relationship Specialty Start Date End Date Mannie Nelson MD [address] [place] [address] PCP - General Family Medicine 11/16/11 Dee Gil, RD [address] [place] [address] Registered Dietitian Nutrition 08/20/22 John England MD [address] [place] [address] Physician Hematology/Oncology 08/21/22 Maryam Hodgson, YENY.MILLWRIGHT HELPER [address] [place] [address] Nurse Practitioner Hematology/Oncology 08/21/22 Rafael Meng, [place] [address] [place] [address] Specialty Personal Loan Specialist Hematology/Oncology 08/21/22 Yordan Feliz MD [address] [place] [address] Physician Radiation Oncology 08/21/22 Tank Builder Helper Relationship Specialty Start Date End Date Mannie Nelson MD [address] [place] [facility] [place] [address] PCP - General Family Medicine 11/16/11 Tank Builder Helper Relationship Specialty Start Date End Date Mannie Nelson MD [address] [place] [address] PCP - General Family Medicine 11/16/11 Dee Gil, KARLOS [address] [place] [address] Registered Dietitian Nutrition 08/20/22 John England MD [address] [place] [address] Physician Hematology/Oncology 08/21/22 Maryam Hodgson, VEHICLE FUEL SYSTEMS CONVERTER.[facility] [address] [place] [address] Nurse Practitioner Hematology/Oncology 08/21/22 Rafael Meng, [place] [address] [place] [address] Specialty Personal Loan Specialist Hematology/Oncology 08/21/22 Yordan Feliz MD [address] [place] [address] [place] [address] Physician Radiation Oncology 08/21/22 Tank Builder Helper Relationship Specialty Start Date End Date Mannie Nelson MD [address] [place] [address] PCP - General Family Medicine 11/16/11 Dee Gil, KARLOS [address] [place] [address] Registered Dietitian Nutrition 08/20/22 John England MD [address] [place] [address] Physician Hematology/Oncology 08/21/22 Maryam Hodgson, VEHICLE FUEL SYSTEMS CONVERTER.[address] [place] [address] Nurse Practitioner Hematology/Oncology 08/21/22 Rafael Meng, [place] [address] [place] [address] Specialty Personal Loan Specialist Hematology/Oncology 08/21/22 Yordan Feliz MD [address] [place] [address] Physician Radiation Oncology 08/21/22 Tank Builder Helper Relationship Specialty Start Date End Date Mannie Nelson MD [address] [place] [address] PCP - General Family Medicine 11/16/11 Dee Gil, KARLOS [address] [place] [address] Registered Dietitian Nutrition 08/20/22 John England MD [address] [place] [address] Physician Hematology/Oncology 08/21/22 Maryam Hodgson, VEHICLE FUEL SYSTEMS CONVERTER.MILLWRIGHT HELPER [address] [place] [address] Nurse Practitioner Hematology/Oncology 08/21/22 Rafael Meng, [place] [address] [place] [address] Specialty Personal Loan Specialist Hematology/Oncology 08/21/22 Yordan Feliz MD [address] [place] [address] Physician Radiation Oncology 08/21/22 Tank Builder Helper Relationship Specialty Start Date End Date Mannie Nelson MD [address] [place] [address] PCP - General Family Medicine 11/16/11 Dee Gil, KARLOS [address] [facility] [place] [address] Registered Dietitian Nutrition 08/20/22 John England MD [address] [place] [address] Physician Hematology/Oncology 08/21/22 Maryam Hodgson, VEHICLE FUEL SYSTEMS CONVERTER.MILLWRIGHT HELPER [address] [place] [address] Nurse Practitioner Hematology/Oncology 08/21/22 Rafael Meng, [place] [address] [place] [address] Specialty Personal Loan Specialist Hematology/Oncology 08/21/22 Yordan Feliz MD [address] [place] [address] Physician Radiation Oncology 08/21/22 Tank Builder Helper Relationship Specialty Start Date End Date Mannie Nelson MD [address] [place] [place] [address] PCP - General Family Medicine 11/16/[address] [place] [address] Registered Dietitian Nutrition 08/20/22 John England MD [address] [place] [address] Physician Hematology/Oncology 08/21/22 Maryam Hodgson, YENY.MILLWRIGHT HELPER [address] [place] [address] Nurse Practitioner Hematology/Oncology 08/21/22 Rafael Meng, [place] [address] [place] [address] Specialty Personal Loan Specialist Hematology/Oncology 08/21/22 Yordan Feliz MD [address] [place] [address] Physician Radiation Oncology 08/21/22 Marysol Purvis LSW Clothes Shaker 09/07/22 Tank Builder Helper Relationship Specialty Start Date End Date Mannie Nelson MD [address] [place] [place] [address] PCP - General Family Medicine 11/16/11 Dee Gil, KARLOS [address] [place] [address] Registered Dietitian Nutrition 08/20/22 John England MD [address] [place] [address] Physician Hematology/Oncology 08/21/22 Maryam Hodgson, VEHICLE FUEL SYSTEMS CONVERTER.MILLWRIGHT HELPER [address] [place] [address] Nurse Practitioner Hematology/Oncology 08/21/22 Rafael Meng, [place] [address] [place] [address] Specialty Personal Loan Specialist Hematology/Oncology 08/21/22 Yordan Feliz MD [address] [place] [address] Physician Radiation Oncology 08/21/22 Marysol Purvis LSW Clothes Shaker 09/07/22 Tank Builder Helper Relationship Specialty Start Date End Date Mannie Nelson MD [address] [place] [address] PCP - General Family Medicine 11/16/11 Dee Gil, KARLOS [address] [place] [address] Registered Dietitian Nutrition 08/20/22 John England MD [address] [place] [address] Physician Hematology/Oncology 08/21/22 Maryam Hodgson, VEHICLE FUEL SYSTEMS CONVERTER.MILLWRIGHT HELPER [address] [place] [address] Nurse Practitioner Hematology/Oncology 08/21/22 Rafael Meng, RN [address] [place] [address] Specialty Personal Loan Specialist Hematology/Oncology 08/21/22 Yordan Feliz MD [address] [place] [address] Physician Radiation Oncology 08/21/22 Marysol Purvis LSW Clothes Shaker 09/07/22 Tank Builder Helper Relationship Specialty Start Date End Date Mannie Nelson MD [address] [place] [address] PCP - General Family Medicine 11/16/[address] [place] [address] Registered Dietitian Nutrition 08/20/22 John England MD [address] [place] [address] Physician Hematology/Oncology 08/21/22 Maryam Hodgson, VEHICLE FUEL SYSTEMS CONVERTER.MILLWRIGHT HELPER [address] [place] [address] Nurse Practitioner Hematology/Oncology 08/21/22 Rafael Meng, [place] [address] [place] [address] Specialty Personal Loan Specialist Hematology/Oncology 08/21/22 Yordan Feliz MD [address] [place] [address] Physician Radiation Oncology 08/21/22 Marysol Purvis LSW Clothes Shaker 09/07/22 Tank Builder Helper Relationship Specialty Start Date End Date Mannie Nelson MD [address] [place] [address] PCP - General Family Medicine 11/16/[address] [place] [address] Registered Dietitian Nutrition 08/20/22 John England MD [address] [place], [place] [address] Physician Hematology/Oncology 08/21/22 Maryam Hodgson, VEHICLE FUEL SYSTEMS CONVERTER.MILLWRIGHT HELPER [address] [place] [address] Nurse Practitioner Hematology/Oncology 08/21/22 Rafael Meng, RN [address] [place] [address] Specialty Personal Loan Specialist Hematology/Oncology 08/21/22 Yordan Feliz MD [address] [place] [address] Physician Radiation Oncology 08/21/22 Marysol Purvis LSW Clothes Shaker 09/07/22 Tank Builder Helper Relationship Specialty Start Date End Date Mannie Nelson MD [address] [place] [address] PCP - General Family Medicine 11/16/11 Dee Gil, RD [address] [place] [address] Registered Dietitian Nutrition 08/20/22 John England MD [address] [place] [address] Physician Hematology/Oncology 08/21/22 Maryam Hodgson, VEHICLE FUEL SYSTEMS CONVERTER.MILLWRIGHT HELPER [address] [place] [address] Nurse Practitioner Hematology/Oncology 08/21/22 Rafael Meng, RN [address] [place] [address] Specialty Personal Loan Specialist Hematology/Oncology 08/21/22 Yordan Feliz MD [address] [place] [address] Physician Radiation Oncology 08/21/22 Marysol Purvis LSW Clothes Shaker 09/07/22 Tank Builder Helper Relationship Specialty Start Date End Date Mannie Nelson MD [address] [facility] [place] [address] PCP - General Family Medicine 11/16/11 Dee Gil, KARLOS [address] [place] [address] Registered Dietitian Nutrition 08/20/22 John England MD [address] [place] [address] Physician Hematology/Oncology 08/21/22 Maryam Hodgson APRN.MILLWRIGHT HELPER [address] [place] [address] Nurse Practitioner Hematology/Oncology 08/21/22 Rafael Meng, [place] [address] [place] [address] Specialty Personal Loan Specialist Hematology/Oncology 08/21/22 Yordan Feliz MD [address] [place] [address] Physician Radiation Oncology 08/21/22 Marysol Purvis LSW Clothes Shaker 09/07/22 Tank Builder Helper Relationship Specialty Start Date End Date Mannie Nelson MD [address] [facility] [place] [address] PCP - General Family Medicine 11/16/11 Dee Gil, KARLOS [address] [place] [address] Registered Dietitian Nutrition 08/20/22 John England MD [address] [place] [address] Physician Hematology/Oncology 08/21/22 Maryam Hodgson, VEHICLE FUEL SYSTEMS CONVERTER.[facility] [address] [place] [address] Nurse Practitioner Hematology/Oncology 08/21/22 Rafael Meng, RN [address] [place], [place] [address] Specialty Personal Loan Specialist Hematology/Oncology 08/21/22 Yordan Feliz MD [address] [place] [address] Physician Radiation Oncology 08/21/22 Marysol Purvis LSW Clothes Shaker 09/07/22 Tank Builder Helper Relationship Specialty Start Date End Date Mannie Nelson MD [address] [place] [address] PCP - General Family Medicine 11/16/11 Dee Gil, KARLOS [address] [place], [place] [address] Registered Dietitian Nutrition 08/20/22 John England MD [address] [place] [address] Physician Hematology/Oncology 08/21/22 Maryam Hodgson, VEHICLE FUEL SYSTEMS CONVERTER.[facility] [address] [place] [address] Nurse Practitioner Hematology/Oncology 08/21/22 Rafael Meng, [place] [address] [place] [address] Specialty Personal Loan Specialist Hematology/Oncology 08/21/22 Yordan Feliz MD [address] [place] [address] Physician Radiation Oncology 08/21/22 Marysol Purvis LSW Clothes Shaker 09/07/22 Tank Builder Helper Relationship Specialty Start Date End Date Mannie Nelson MD [address] [place] [address] PCP - General Family Medicine 11/16/[address] [place] [address] Registered Dietitian Nutrition 08/20/22 John England MD [address] [place] [address] Physician Hematology/Oncology 08/21/22 Maryam Hodgson, VEHICLE FUEL SYSTEMS CONVERTER.MILLWRIGHT HELPER [address] [place] [address] Nurse Practitioner Hematology/Oncology 08/21/22 Rafael Meng, [place] [address] [place] [address] Specialty Personal Loan Specialist Hematology/Oncology 08/21/22 Yordan Feliz MD [address] [place] [address] Physician Radiation Oncology 08/21/22 Marysol Purvis LSW Clothes Shaker 09/07/22 Tank Builder Helper Relationship Specialty Start Date End Date Mannie Nelson MD [address] [place] [address] PCP - General Family Medicine 11/16/[address] [place] [address] Registered Dietitian Nutrition 08/20/22 John England MD [address] [place] [address] Physician Hematology/Oncology 08/21/22 Maryam Hodgson, VEHICLE FUEL SYSTEMS CONVERTER.MILLWRIGHT HELPER [address] [place] [address] Nurse Practitioner Hematology/Oncology 08/21/22 Rafael Meng, [place] [address] [place] [address] Specialty Personal Loan Specialist Hematology/Oncology 08/21/22 Yordan Feliz MD [address] [place] [address] Physician Radiation Oncology 08/21/22 Marysol Purvis LSW Clothes Shaker 09/07/22 Tank Builder Helper Relationship Specialty Start Date End Date Mannie Nelson MD [address] [place] [address] PCP - General Family Medicine 11/16/11 Dee Gil, KARLOS [address] [place] [address] Registered Dietitian Nutrition 08/20/22 John England MD [address] [place] [address] Physician Hematology/Oncology 08/21/22 Maryam Hodgson, VEHICLE FUEL SYSTEMS CONVERTER.MILLWRIGHT HELPER [address] [place] [address] Nurse Practitioner Hematology/Oncology 08/21/22 Rafael Meng, [place] [address] [place] [address] Specialty Personal Loan Specialist Hematology/Oncology 08/21/22 Yordan Feliz MD [address] [place] [address] Physician Radiation Oncology 08/21/22 Marysol Purvis LSW Clothes Shaker 09/07/22 Tank Builder Helper Relationship Specialty Start Date End Date Mannie Nelson MD [address] [place] [address] PCP - General Family Medicine 11/16/11 Dee Gil, RD [address] [place] [address] Registered Dietitian Nutrition 08/20/22 John England MD [address] [place] [address] Physician Hematology/Oncology 08/21/22 Maryam Hodgson, VEHICLE FUEL SYSTEMS CONVERTER.MILLWRIGHT HELPER [address] [place] [address] Nurse Practitioner Hematology/Oncology 08/21/22 Rafael Meng, [place] [address] [place] [address] Specialty Personal Loan Specialist Hematology/Oncology 08/21/22 Yordan Feliz MD [address] [place] [address] Physician Radiation Oncology 08/21/22 Marysol Purvis LSW Clothes Shaker 09/07/22 Tank Builder Helper Relationship Specialty Start Date End Date Mannie Nelson MD [address] [place] [address] PCP - General Family Medicine 11/16/11 Dee Gil, KARLOS [address] [place] [address] Registered Dietitian Nutrition 08/20/22 John England MD [address] [place] [address] Physician Hematology/Oncology 08/21/22 Maryam Hodgson, VEHICLE FUEL SYSTEMS CONVERTER.MILLWRIGHT HELPER [address] [place] [address] Nurse Practitioner Hematology/Oncology 08/21/22 Rafael Meng, [place] [address] [place] [address] Specialty Personal Loan Specialist Hematology/Oncology 08/21/22 Yordan Feliz MD [address] [address] [place] [address] Physician Radiation Oncology 08/21/22 Marysol Purvis LSW Clothes Shaker 09/07/22 Tank Builder Helper Relationship Specialty Start Date End Date Mannie Nelson MD [address] [place] [address] PCP - General Family Medicine 11/16/[address] [place] [address] Registered Dietitian Nutrition 08/20/22 John England MD [address] [place] [address] Physician Hematology/Oncology 08/21/22 Maryam Hodgson, YENY.MILLWRIGHT HELPER [address] [place] [address] Nurse Practitioner Hematology/Oncology 08/21/22 Rafael Meng, [place] [address] [place] [address] Specialty Personal Loan Specialist Hematology/Oncology 08/21/22 Yordan Feliz MD [address] [place] [address] Physician Radiation Oncology 08/21/22 Marysol Purvis LSW Clothes Shaker 09/07/22 Tank Builder Helper Relationship Specialty Start Date End Date Mannie Nelson MD [address] [place] [address] PCP - General Family Medicine 11/16/11 Dee Gil, KARLOS [address] [place] [address] Registered Dietitian Nutrition 08/20/22 John England MD [address] [place] [address] Physician Hematology/Oncology 08/21/22 Maryam Hodgson, VEHICLE FUEL SYSTEMS CONVERTER.MILLWRIGHT HELPER [address] [place] [address] Nurse Practitioner Hematology/Oncology 08/21/22 Rafael Meng, [place] [address] [place] [address] Specialty Personal Loan Specialist Hematology/Oncology 08/21/22 Yordan Feliz MD [address] [place] [address] Physician Radiation Oncology 08/21/22 Marysol Purvis LSW Clothes Shaker 09/07/22 Tank Builder Helper Relationship Specialty Start Date End Date Mannie Nelson MD [address] [place] [address] PCP - General Family Medicine 11/16/[address] [place] [address] Registered Dietitian Nutrition 08/20/22 John England MD [address] [place] [address] Physician Hematology/Oncology 08/21/22 Maryam Hodgson, VEHICLE FUEL SYSTEMS CONVERTER.MILLWRIGHT HELPER [address] [place] [address] Nurse Practitioner Hematology/Oncology 08/21/22 Rafael Meng, RN [address] [place] [address] Specialty Personal Loan Specialist Hematology/Oncology 08/21/22 Yordan Feliz MD [address] [place] [address] Physician Radiation Oncology 08/21/22 Marysol Purvis LSW Clothes Shaker 09/07/22 Tank Builder Helper Relationship Specialty Start Date End Date Mannei Nelson MD [address] [place] [address] PCP - General Family Medicine 11/16/[address] [place] [address] Registered Dietitian Nutrition 08/20/22 John England MD [address] [place] [address] Physician Hematology/Oncology 08/21/22 Maryam Hodgson, YENY.MILLWRIGHT HELPER [address] [place] [address] Nurse Practitioner Hematology/Oncology 08/21/22 Rafael Meng, [place] [address] [place] [address] Specialty Personal Loan Specialist Hematology/Oncology 08/21/22 Yordan Feliz MD [address] [place] [address] Physician Radiation Oncology 08/21/22 Marysol Purvis LSW Clothes Shaker 09/07/22 Tank Builder Helper Relationship Specialty Start Date End Date Mannie Nelson MD [address] [place] [address] PCP - General Family Medicine 11/16/[address] [place], [place] [address] Registered Dietitian Nutrition 08/20/22 John England MD [address] [place] [address] Physician Hematology/Oncology 08/21/22 Maryam Hodgson, VEHICLE FUEL SYSTEMS CONVERTER.MILLWRIGHT HELPER [address] [place] [address] Nurse Practitioner Hematology/Oncology 08/21/22 Rafael Meng, RN [address] [place], [place] [address] Specialty Personal Loan Specialist Hematology/Oncology 08/21/22 Yordan Feliz MD [address] [place] [address] Physician Radiation Oncology 08/21/22 Marysol Purvis LSW Clothes Shaker 09/07/22 Tank Builder Helper Relationship Specialty Start Date End Date Mannie Nelson MD [address] [place] [address] PCP - General Family Medicine 11/16/11 Dee Gil, KARLOS [address] [place] [address] Registered Dietitian Nutrition 08/20/22 John England MD [address] [place] [address] Physician Hematology/Oncology 08/21/22 Maryam Hodgson, VEHICLE FUEL SYSTEMS CONVERTER.MILLWRIGHT HELPER [address] [place] [address] Nurse Practitioner Hematology/Oncology 08/21/22 Rafael Meng, RN [address] [place] [address] Specialty Personal Loan Specialist Hematology/Oncology 08/21/22 Yordan Feliz MD [address] [place] [address] Physician Radiation Oncology 08/21/22 Marysol Purvis LSW Clothes Shaker 09/07/22 Tank Builder Helper Relationship Specialty Start Date End Date Mannie Nelson MD [address] [place] [address] PCP - General Family Medicine 11/16/[address] [place] [address] Registered Dietitian Nutrition 08/20/22 John England MD [address] [address] [place] [address] Physician Hematology/Oncology 08/21/22 Maryam Hodgson, VEHICLE FUEL SYSTEMS CONVERTER.MILLWRIGHT HELPER [address] [place] [address] Nurse Practitioner Hematology/Oncology 08/21/22 Rafael Meng, [place] [address] [place] [address] Specialty Personal Loan Specialist Hematology/Oncology 08/21/22 Yordan Feliz MD [address] [address] [place] [address] Physician Radiation Oncology 08/21/22 Marysol Purvis LSW Clothes Shaker 09/07/22 Tank Builder Helper Relationship Specialty Start Date End Date Mannie Nelson MD [address] [place] [address] PCP - General Family Medicine 11/16/[address] [place] [address] Registered Dietitian Nutrition 08/20/22 John England MD [address] [place], [place] [address] Physician Hematology/Oncology 08/21/22 Maryam Hodgson, VEHICLE FUEL SYSTEMS CONVERTER.MILLWRIGHT HELPER [address] [address] [place] [address] Nurse Practitioner Hematology/Oncology 08/21/22 Rafael Meng, RN [address] [place] [address] Specialty Personal Loan Specialist Hematology/Oncology 08/21/22 Yordan Feliz MD [address] [place] [address] Physician Radiation Oncology 08/21/22 Marysol Purvis LSW Clothes Shaker 09/07/22 Tank Builder Helper Relationship Specialty Start Date End Date Mannie Nelson MD [address] [place] [address] PCP - General Family Medicine 11/16/11 Dee Tirado, KARLOS [address] [place] [address] Registered Dietitian Nutrition 08/20/22 John England MD [address] [place] [address] Physician Hematology/Oncology 08/21/22 Maryam Hodgson, VEHICLE FUEL SYSTEMS CONVERTER.MILLWRIGHT HELPER [address] [place] [address] Nurse Practitioner Hematology/Oncology 08/21/22 Rafael Meng, RN [address] [place] [address] Specialty Personal Loan Specialist Hematology/Oncology 08/21/22 Yordan Feliz MD [address] [place], [place] [address] Physician Radiation Oncology 08/21/22 Marysol Purvis LSW Clothes Shaker 09/07/22 Tank Builder Helper Relationship Specialty Start Date End Date Shaikh Drake MD [address] [place] [address] PCP - General Primary Care 02/06/[address] [place] [address] Registered Dietitian Nutrition 08/20/22 John England MD [address] [address] [place] [address] Physician Hematology/Oncology 08/21/22 Maryam Hodgson APRN.MILLWRIGHT HELPER [address] [address] [place] [address] Nurse Practitioner Hematology/Oncology 08/21/22 Rafael Meng, [place] [address] [address] [place] [address] Specialty Personal Loan Specialist Hematology/Oncology 08/21/22 Yordan Feliz MD [address] [address] [place] [address] Physician Radiation Oncology 08/21/22 Marysol Purvis LSW Clothes Shaker 09/07/22 Tank Builder Helper Relationship Specialty Start Date End Date Shaikh Drake MD [address] [place] [address] PCP - General Primary Care 02/06/[address] [place] [address] Registered Dietitian Nutrition 08/20/22 John England MD [address] [address] [place] [address] Physician Hematology/Oncology 08/21/22 Maryam Hodgson, VEHICLE FUEL SYSTEMS CONVERTER.MILLWRIGHT HELPER [address] [place] [address] Nurse Practitioner Hematology/Oncology 08/21/22 Rafael Meng, [place] [address] [place] [address] Specialty Personal Loan Specialist Hematology/Oncology 08/21/22 Yordan Feliz MD [address] [place] [address] Physician Radiation Oncology 08/21/22 Marysol Purvis LSW Clothes Shaker 09/07/22 Tank Builder Helper Relationship Specialty Start Date End Date Shaikh Drake MD [address] [place] [address] PCP - General Primary Care 02/06/[address] [place] [address] Registered Dietitian Nutrition 08/20/22 John England MD [address] [place] [address] Physician Hematology/Oncology 08/21/22 Maryam Hodgson, VEHICLE FUEL SYSTEMS CONVERTER.MILLWRIGHT HELPER [address] [place] [address] Nurse Practitioner Hematology/Oncology 08/21/22 Rafael Meng, [place] [address] [place] [address] Specialty Personal Loan Specialist Hematology/Oncology 08/21/22 Yordan Feliz MD [address] [place] [address] Physician Radiation Oncology 08/21/22 Marysol Purvis LSW Clothes Shaker 09/07/22 Tank Builder Helper Relationship Specialty Start Date End Date Shaikh Drake MD [address] [place] [address] PCP - General Primary Care 02/06/[address] [place] [address] Registered Dietitian Nutrition 08/20/22 John England MD [address] [address] [place] [address] Physician Hematology/Oncology 08/21/22 Maryam Hodgson APRN.MILLWRIGHT HELPER [address] [place] [address] Nurse Practitioner Hematology/Oncology 08/21/22 Rafael Meng RN [address] [place] [address] Specialty Personal Loan Specialist Hematology/Oncology 08/21/22 Yordan Feliz MD [address] [place] [address] Physician Radiation Oncology 08/21/22 Marysol Purvis LSW Clothes Shaker 09/07/22 Tank Builder Helper Relationship Specialty Start Date End Date Shaikh Drake MD [address] [place] [address] PCP - General Primary Care 02/06/[address] [facility] [place] [address] Registered Dietitian Nutrition 08/20/22 John England MD [address] [facility] [place] [address] Physician Hematology/Oncology 08/21/22 Maryam Hodgson APRN.MILLWRIGHT HELPER [address] [place] [address] Nurse Practitioner Hematology/Oncology 08/21/22 Rafael Meng, [place] [address] [facility] [place] [address] Specialty Personal Loan Specialist Hematology/Oncology 08/21/22 Yordan Feliz MD [address] [place] [address] Physician Radiation Oncology 08/21/22 Marysol Purvis LSW Clothes Shaker 09/07/22 Tank Builder Helper Relationship Specialty Start Date End Date Shaikh Drake MD [address] [place] [address] PCP - General Primary Care 02/06/[address] [place] [address] Registered Dietitian Nutrition 08/20/22 John England MD [address] [facility] [place] [address] Physician Hematology/Oncology 08/21/22 Maryam Hodgson, VEHICLE FUEL SYSTEMS CONVERTER.MILLWRIGHT HELPER [address] [place] [address] [place] [address] Nurse Practitioner Hematology/Oncology 08/21/22 Rafael Meng, [place] [address] [place] [address] Specialty Personal Loan Specialist Hematology/Oncology 08/21/22 Yordan Feliz MD [address] [address] [place] [address] Physician Radiation Oncology 08/21/22 Marysol Purvis LSW Clothes Shaker 09/07/22 Tank Builder Helper Relationship Specialty Start Date End Date Sha[facility] [place] [address] PCP - General Primary Care 02/06/[address] [place] [address] [place] [address] Registered Dietitian Nutrition 08/20/22 John England MD [address] [place] [address] [place] [address] Physician Hematology/Oncology 08/21/22 Maryam Hodgson, VEHICLE FUEL SYSTEMS CONVERTER.MILLWRIGHT HELPER [address] [place] [address] [place] [address] Nurse Practitioner Hematology/Oncology 08/21/22 Rafael Meng, [place] [address] [place] [address] Specialty Personal Loan Specialist Hematology/Oncology 08/21/22 Yordan Feliz MD [address] [place] [address] Physician Radiation Oncology 08/21/22 Marysol Purvis LSW Clothes Shaker 09/07/22 Team Status: Active Member Role Status Dates Odell Schmidt DO Primary Care Provider Active Team Status: Inactive Member Role Status Dates Michelle Singh APRN Attending Provider Active Start: January 14, 2024 End: January 14, 2024 Odell Schmidt DO Primary Care Provider Active Start: January 14, 2024 End: January 14, 2024 Tank Builder Helper Relationship Specialty Start Date End Date Shaikh Drake MD [address] [place] [address] PCP - General Primary Care 02/06/[address] [place] [address] [place] [address] Registered Dietitian Nutrition 08/20/22 John England MD [address] [place] [address] [place] [address] Physician Hematology/Oncology 08/21/22 Maryam Hodgson APRN.MILLWRIGHT HELPER [address] [place] [address] [place] [address] Nurse Practitioner Hematology/Oncology 08/21/22 Rafael Meng, [place] [address] [place] [address] Specialty Personal Loan Specialist Hematology/Oncology 08/21/22 Yordan Feliz MD [address] [facility] [place] [address] Physician Radiation Oncology 08/21/22 Marysol Purvis LSW Clothes Shaker 09/07/22 Tank Builder Helper Relationship Specialty Start Date End Date Mannie Nelson MD [address] [place] [address] PCP - General Family Medicine 11/16/11 02/05/[address] [place] Registered Dietitian Nutrition 08/20/22 John England MD [address] [place] [address] Physician Hematology/Oncology 08/21/22 Maryam Hodgson APRN.MILLWRIGHT HELPER [address] [place], [facility] Nurse Practitioner Hematology/Oncology 08/21/22 Rafael Meng, [place] [address] [place] [address] Specialty Personal Loan Specialist Hematology/Oncology 08/21/22 Yordan Feliz MD [address] [place] [address] Physician Radiation Oncology 08/21/22 Marysol Purvis LSW Clothes Shaker 09/07/22 Tank Builder Helper Relationship Specialty Start Date End Date Mannie Nelson MD [address] [place] [address] PCP - General Family Medicine 11/16/11 02/05/[address] [place] [address] Registered Dietitian Nutrition 08/20/22 John England MD [address] [place] [address] Physician Hematology/Oncology 08/21/22 Maryam Hodgson, VEHICLE FUEL SYSTEMS CONVERTER.MILLWRIGHT HELPER [address] [facility] [place] [address] Nurse Practitioner Hematology/Oncology 08/21/22 Rafael Meng, RN [address] [place] [address] Specialty Personal Loan Specialist Hematology/Oncology 08/21/22 Yordan Feliz MD [address] [place] [address] Physician Radiation Oncology 08/21/22 Tank Builder Helper Relationship Specialty Start Date End Date Mannie Nelson MD [address] [place] [address] PCP - General Family Medicine 11/16/11 02/05/[address] [place] [address] Registered Dietitian Nutrition 08/20/22 John England MD [address] [place] [address] Physician Hematology/Oncology 08/21/22 Maryam Hodgson, VEHICLE FUEL SYSTEMS CONVERTER.MILLWRIGHT HELPER [address] [facility] [place] [address] Nurse Practitioner Hematology/Oncology 08/21/22 Rafael Meng, [place] [address] [place] [address] Specialty Personal Loan Specialist Hematology/Oncology 08/21/22 Yordan Feliz MD [address] [place] [address] [place] [address] Physician Radiation Oncology 08/21/22 Team Status: Inactive Member Role Status Dates Odell Schmidt DO Primary Care Provider Active Start: April 07, 2024 End: April 07, 2024 Michelle Singh APRN Attending Provider Active Start: April 07, 2024 End: April 07, 2024 Tank Builder Helper Relationship Specialty Start Date End Date Unallocated, Tamanna Thomas MD [address] [place] [address] PCP - General Family Medicine 04/13/24 Tank Builder Helper Relationship Specialty Start Date End Date Unallocated, Tamanna Thomas MD [address] [place] [address] PCP - General Family Medicine 04/13/24 Tank Builder Helper Relationship Specialty Start Date End Date Unallocated, Tamanna Thomas MD [address] [place] [address] PCP - General Family Medicine 04/13/24 Tank Builder Helper Relationship Specialty Start Date End Date Shaikh Drake MD [facility] [place] [address] PCP - General Primary Care 02/06/[address] [facility] [place] [address] Registered Dietitian Nutrition 08/20/22 John England MD [address] [address] [place] [address] Physician Hematology/Oncology 08/21/22 Maryam Hodgson APRN.MILLWRIGHT HELPER [address] [place] [address] Nurse Practitioner Hematology/Oncology 08/21/22 Rafael Meng, RN [address] [place] [address] Specialty Personal Loan Specialist Hematology/Oncology 08/21/22 Yordan Feliz MD [address] [place] [address] Physician Radiation Oncology 08/21/22 Marysol Purvis LSW Clothes Shaker 09/07/22 Tank Builder Helper Relationship Specialty Start Date End Date Unallocated, Tamanna Thomas MD [address] [place] [address] PCP - General Family Medicine 04/13/24 Tank Builder Helper Relationship Specialty Start Date End Date Unallocated, [place] [address] [place] [id number] PCP - General Family Medicine 04/13/24 Tank Builder Helper Relationship Specialty Start Date End Date Mason Johnson II, MD [address] [facility] [address] [place] [address] PCP - General Internal Medicine 05/06/[address] [place] [address] Registered Dietitian Nutrition 08/20/22 John England MD [address] [address] [place] [address] Physician Hematology/Oncology 08/21/22 Maryam Hodgson, [employer] CONVERTER.MILLWRIGHT HELPER [address] [place] [address] [place] [address] Nurse Practitioner Hematology/Oncology 08/21/22 Rafael Meng RN [address] [place] [address] Specialty Personal Loan Specialist Hematology/Oncology 08/21/22 Yordan Feliz MD [address] [address] [place] [address] Physician Radiation Oncology 08/21/22 Marysol Purvis LSW Clothes Shaker 09/07/22 Tank Builder Helper Relationship Specialty Start Date End Date Mason Johnson II, MD [address] [facility] [address] [place] [address] PCP - General Internal Medicine 05/06/[address] [place] [address] [place] [address] Registered Dietitian Nutrition 08/20/22 John England MD [address] [address] [place] [address] Physician Hematology/Oncology 08/21/22 Maryam Hodgson APRN.MILLWRIGHT HELPER [address] [place] [address] [place] [address] Nurse Practitioner Hematology/Oncology 08/21/22 Rafael Meng RN [address] [place] [address] Specialty Personal Loan Specialist Hematology/Oncology 08/21/22 Yordan Feliz MD [address] [place] [address] [place] [address] Physician Radiation Oncology 08/21/22 Marysol Purvis LSW Clothes Shaker 09/07/22 Tank Builder Helper Relationship Specialty Start Date End Date Unallocated, Noms MD Martha [address] [place] [address] PCP - General Family Medicine 04/13/24 Tank Builder Helper Relationship Specialty Start Date End Date Mason Johnson MD [address] [place] [address] PCP - General Internal Medicine 05/18/24 Tank Builder Helper Relationship Specialty Start Date End Date Mason Johnson MD [address] [place] [address] PCP - General Internal Medicine 05/18/24 Tank Builder Helper Relationship Specialty Start Date End Date Mason Johnson MD [address] [facility] [address] [place] [address] PCP - General Internal Medicine 05/18/24 Tank Builder Helper Relationship Specialty Start Date End Date Mason Johnson MD [address] [facility] [address] [place] [address] PCP - General Internal Medicine 05/18/24 Tank Builder Helper Relationship Specialty Start Date End Date Shaikh Drake MD [address] [place] [id number] PCP - General Internal Medicine 11/05/23 Tank Builder Helper Relationship Specialty Start Date End Date Shaikh Drake MD [address] [place] [id number] PCP - General Internal Medicine 11/05/23 Tank Builder Helper Relationship Specialty Start Date End Date Mason Johnson MD [address] [place] [address] PCP - General Internal Medicine 05/18/24 Tank Builder Helper Relationship Specialty Start Date End Date Shaikh Drake MD [address] [place] [address] PCP - General Internal Medicine 11/05/23 Tank Builder Helper Relationship Specialty Start Date End Date Shaikh Drake MD [address] [place] [address] PCP - General Internal Medicine 11/05/23 Tank Builder Helper Relationship Specialty Start Date End Date Mason Johnson MD [address] [place] [address] PCP - General Internal Medicine 05/18/24 Tank Builder Helper Relationship Specialty Start Date End Date Mason Johnson MD [address] [place] [address] PCP - General Internal Medicine 05/18/24 Mason Johnson MD [address] [place] [address] PCP - Medical [place] 07/08/2407/07 Tank Builder Helper Relationship Specialty Start Date End Date Mason Johnson MD [address] [place] [address] PCP - General Internal Medicine 05/18/24 Mason Johnson MD [address] [place] [address] PCP - Medical [place] 07/08/2407/07 Tank Builder Helper Relationship Specialty Start Date End Date Mason Johnson MD [address] [place] [address] PCP - General Internal Medicine 05/18/24 Mason Johnson MD [address] [place] [address] PCP - Medical [place] 07/08/2407/07 Tank Builder Helper Relationship Specialty Start Date End Date Mason Johnson MD [address] [place] [address] PCP - General Internal Medicine 05/18/24 Mason Johnson MD [address] [place] [address] PCP - Medical [place] 07/08/2407/07 Tank Builder Helper Relationship Specialty Start Date End Date Mason Johnson MD [address] [place] [address] PCP - General Internal Medicine 05/18/24 Mason Johnson MD [address] [place] [address] PCP - Medical [place] 07/08/2407/07 (unrecognized sect ion and content) No Status Records FoundNo Status Records FoundNo Status Records FoundNo Status Records FoundNo Status Records Found INFORMATION SOURCE (unrecogn ized section and content) DATE CREATED AUTHOR 07/31/2022 [facility] DATE CREATED AUTHOR AUTHOR'S ORGANIZ ATION 08/04/2022 [facility] DATE CREATED AUTHOR AUTHOR'S ORGANIZ ATION 05/17/2024 [facility] DATE CREATED AUTHOR AUTHOR'S ORGANIZ ATION 09/03/2024 [facility] DATE CREATED AUTHOR AUTHOR'S ORGANIZ ATION 09/20/2024 [facility] EPIC Source Comments (unrecognize d section and content) In the event this informatio n is protected by the Federal Confidentiality of Alcohol and Drug Abuse Patient Records regulations: The Federal rules restrict any use of the information to criminally investigate or prosecute any alcohol or drug abuse patient.[facility] the event this information is protected by the Federal Confidentiality of Alcohol and Drug Abuse Patient Records regulations: The Federal rules restrict any use of the information to criminally investigate or prosecute any alcohol or drug abuse patient.[facility] the event this information is protected by the Federal Confidentiality of Alcohol and Drug Abuse Patient Records regulations: The Federal rules restrict any use of the information to criminally investigate or prosecute any alcohol or drug abuse patient.[facility] the event this information is protected by the Federal Confidentiality of Alcohol and Drug Abuse Patient Records regulations: The Federal rules restrict any use of the information to criminally investigate or prosecute any alcohol or drug abuse patient.[facility] the event this information is protected by the Federal Confidentiality of Alcohol and Drug Abuse Patient Records regulations: The Federal rules restrict any use of the information to criminally investigate or prosecute any alcohol or drug abuse patient.[facility] the event this information is protected by the Federal Confidentiality of Alcohol and Drug Abuse Patient Records regulations: The Federal rules restrict any use of the information to criminally investigate or prosecute any alcohol or drug abuse patient.[facility] the event this information is protected by the Federal Confidentiality of Alcohol and Drug Abuse Patient Records regulations: The Federal rules restrict any use of the information to criminally investigate or prosecute any alcohol or drug abuse patient.[facility] the event this information is protected by the Federal Confidentiality of Alcohol and Drug Abuse Patient Records regulations: The Federal rules restrict any use of the information to criminally investigate or prosecute any alcohol or drug abuse patient.[facility] the event this information is protected by the Federal Confidentiality of Alcohol and Drug Abuse Patient Records regulations: The Federal rules restrict any use of the information to criminally investigate or prosecute any alcohol or drug abuse patient.[facility] the event this information is protected by the Federal Confidentiality of Alcohol and Drug Abuse Patient Records regulations: The Federal rules restrict any use of the information to criminally investigate or prosecute any alcohol or drug abuse patient.[facility] the event this information is protected by the Federal Confidentiality of Alcohol and Drug Abuse Patient Records regulations: The Federal rules restrict any use of the information to criminally investigate or prosecute any alcohol or drug abuse patient.[facility] the event this information is protected by the Federal Confidentiality of Alcohol and Drug Abuse Patient Records regulations: The Federal rules restrict any use of the information to criminally investigate or prosecute any alcohol or drug abuse patient.[facility] the event this information is protected by the Federal Confidentiality of Alcohol and Drug Abuse Patient Records regulations: The Federal rules restrict any use of the information to criminally investigate or prosecute any alcohol or drug abuse patient.[facility] the event this information is protected by the Federal Confidentiality of Alcohol and Drug Abuse Patient Records regulations: The Federal rules restrict any use of the information to criminally investigate or prosecute any alcohol or drug abuse patient.[facility] the event this information is protected by the Federal Confidentiality of Alcohol and Drug Abuse Patient Records regulations: The Federal rules restrict any use of the information to criminally investigate or prosecute any alcohol or drug abuse patient.[facility] the event this information is protected by the Federal Confidentiality of Alcohol and Drug Abuse Patient Records regulations: The Federal rules restrict any use of the information to criminally investigate or prosecute any alcohol or drug abuse patient.[facility] the event this information is protected by the Federal Confidentiality of Alcohol and Drug Abuse Patient Records regulations: The Federal rules restrict any use of the information to criminally investigate or prosecute any alcohol or drug abuse patient.[facility] the event this information is protected by the Federal Confidentiality of Alcohol and Drug Abuse Patient Records regulations: The Federal rules restrict any use of the information to criminally investigate or prosecute any alcohol or drug abuse patient.[facility] HospitalIn the event this information is protected by the Federal Confidentiality of Alcohol and Drug Abuse Patient Records regulations: The Federal rules restrict any use of the information to criminally investigate or prosecute any alcohol or drug abuse patient.[facility] HospitalIn the event this information is protected by the Federal Confidentiality of Alcohol and Drug Abuse Patient Records regulations: The Federal rules restrict any use of the information to criminally investigate or prosecute any alcohol or drug abuse patient.[facility] HospitalIn the event this information is protected by the Federal Confidentiality of Alcohol and Drug Abuse Patient Records regulations: The Federal rules restrict any use of the information to criminally investigate or prosecute any alcohol or drug abuse patient.[facility] HospitalIn the event this information is protected by the Federal Confidentiality of Alcohol and Drug Abuse Patient Records regulations: The Federal rules restrict any use of the information to criminally investigate or prosecute any alcohol or drug abuse patient.[facility] the event this information is protected by the Federal Confidentiality of Alcohol and Drug Abuse Patient Records regulations: The Federal rules restrict any use of the information to criminally investigate or prosecute any alcohol or drug abuse patient.[facility]In the event this information is protected by the Federal Confidentiality of Alcohol and Drug Abuse Patient Records regulations: The Federal rules restrict any use of the information to criminally investigate or prosecute any alcohol or drug abuse patient.[facility]In the event this information is protected by the Federal Confidentiality of Alcohol and Drug Abuse Patient Records regulations: The Federal rules restrict any use of the information to criminally investigate or prosecute any alcohol or drug abuse patient.[facility]In the event this information is protected by the Federal Confidentiality of Alcohol and Drug Abuse Patient Records regulations: The Federal rules restrict any use of the information to criminally investigate or prosecute any alcohol or drug abuse patient.[facility]In the event this information is protected by the Federal Confidentiality of Alcohol and Drug Abuse Patient Records regulations: The Federal rules restrict any use of the information to criminally investigate or prosecute any alcohol or drug abuse patient.[facility]In the event this information is protected by the Federal Confidentiality of Alcohol and Drug Abuse Patient Records regulations: The Federal rules restrict any use of the information to criminally investigate or prosecute any alcohol or drug abuse patient.[facility] HospitalIn the event this information is protected by the Federal Confidentiality of Alcohol and Drug Abuse Patient Records regulations: The Federal rules restrict any use of the information to criminally investigate or prosecute any alcohol or drug abuse patient.[facility]In the event this information is protected by the Federal Confidentiality of Alcohol and Drug Abuse Patient Records regulations: The Federal rules restrict any use of the information to criminally investigate or prosecute any alcohol or drug abuse patient.[facility] HospitalIn the event this information is protected by the Federal Confidentiality of Alcohol and Drug Abuse Patient Records regulations: The Federal rules restrict any use of the information to criminally investigate or prosecute any alcohol or drug abuse patient.[facility]In the event this information is protected by the Federal Confidentiality of Alcohol and Drug Abuse Patient Records regulations: The Federal rules restrict any use of the information to criminally investigate or prosecute any alcohol or drug abuse patient.[facility]In the event this information is protected by the Federal Confidentiality of Alcohol and Drug Abuse Patient Records regulations: The Federal rules restrict any use of the information to criminally investigate or prosecute any alcohol or drug abuse patient.[facility]In the event this information is protected by the Federal Confidentiality of Alcohol and Drug Abuse Patient Records regulations: The Federal rules restrict any use of the information to criminally investigate or prosecute any alcohol or drug abuse patient.[facility]In the event this information is protected by the Federal Confidentiality of Alcohol and Drug Abuse Patient Records regulations: The Federal rules restrict any use of the information to criminally investigate or prosecute any alcohol or drug abuse patient.[facility]In the event this information is protected by the Federal Confidentiality of Alcohol and Drug Abuse Patient Records regulations: The Federal rules restrict any use of the information to criminally investigate or prosecute any alcohol or drug abuse patient.[facility]In the event this information is protected by the Federal Confidentiality of Alcohol and Drug Abuse Patient Records regulations: The Federal rules restrict any use of the information to criminally investigate or prosecute any alcohol or drug abuse patient.[facility]In the event this information is protected by the Federal Confidentiality of Alcohol and Drug Abuse Patient Records regulations: The Federal rules restrict any use of the information to criminally investigate or prosecute any alcohol or drug abuse patient.[facility]In the event this information is protected by the Federal Confidentiality of Alcohol and Drug Abuse Patient Records regulations: The Federal rules restrict any use of the information to criminally investigate or prosecute any alcohol or drug abuse patient.[facility]In the event this information is protected by the Federal Confidentiality of Alcohol and Drug Abuse Patient Records regulations: The Federal rules restrict any use of the information to criminally investigate or prosecute any alcohol or drug abuse patient.[facility]In the event this information is protected by the Federal Confidentiality of Alcohol and Drug Abuse Patient Records regulations: The Federal rules restrict any use of the information to criminally investigate or prosecute any alcohol or drug abuse patient.[facility]In the event this information is protected by the Federal Confidentiality of Alcohol and Drug Abuse Patient Records regulations: The Federal rules restrict any use of the information to criminally investigate or prosecute any alcohol or drug abuse patient.[facility]In the event this information is protected by the Federal Confidentiality of Alcohol and Drug Abuse Patient Records regulations: The Federal rules restrict any use of the information to criminally investigate or prosecute any alcohol or drug abuse patient.[facility]In the event this information is protected by the Federal Confidentiality of Alcohol and Drug Abuse Patient Records regulations: The Federal rules restrict any use of the information to criminally investigate or prosecute any alcohol or drug abuse patient.[facility]In the event this information is protected by the Federal Confidentiality of Alcohol and Drug Abuse Patient Records regulations: The Federal rules restrict any use of the information to criminally investigate or prosecute any alcohol or drug abuse patient.[facility]In the event this information is protected by the Federal Confidentiality of Alcohol and Drug Abuse Patient Records regulations: The Federal rules restrict any use of the information to criminally investigate or prosecute any alcohol or drug abuse patient.[facility]In the event this information is protected by the Federal Confidentiality of Alcohol and Drug Abuse Patient Records regulations: The Federal rules restrict any use of the information to criminally investigate or prosecute any alcohol or drug abuse patient.[facility]In the event this information is protected by the Federal Confidentiality of Alcohol and Drug Abuse Patient Records regulations: The Federal rules restrict any use of the information to criminally investigate or prosecute any alcohol or drug abuse patient.[facility]In the event this information is protected by the Federal Confidentiality of Alcohol and Drug Abuse Patient Records regulations: The Federal rules restrict any use of the information to criminally investigate or prosecute any alcohol or drug abuse patient.[facility]In the event this information is protected by the Federal Confidentiality of Alcohol and Drug Abuse Patient Records regulations: The Federal rules restrict any use of the information to criminally investigate or prosecute any alcohol or drug abuse patient.[facility]In the event this information is protected by the Federal Confidentiality of Alcohol and Drug Abuse Patient Records regulations: The Federal rules restrict any use of the information to criminally investigate or prosecute any alcohol or drug abuse patient.[facility]In the event this information is protected by the Federal Confidentiality of Alcohol and Drug Abuse Patient Records regulations: The Federal rules restrict any use of the information to criminally investigate or prosecute any alcohol or drug abuse patient.[facility]In the event this information is protected by the Federal Confidentiality of Alcohol and Drug Abuse Patient Records regulations: The Federal rules restrict any use of the information to criminally investigate or prosecute any alcohol or drug abuse patient.[facility]In the event this information is protected by the Federal Confidentiality of Alcohol and Drug Abuse Patient Records regulations: The Federal rules restrict any use of the information to criminally investigate or prosecute any alcohol or drug abuse patient.[facility]In the event this information is protected by the Federal Confidentiality of Alcohol and Drug Abuse Patient Records regulations: The Federal rules restrict any use of the information to criminally investigate or prosecute any alcohol or drug abuse patient.[facility]In the event this information is protected by the Federal Confidentiality of Alcohol and Drug Abuse Patient Records regulations: The Federal rules restrict any use of the information to criminally investigate or prosecute any alcohol or drug abuse patient.[facility]In the event this information is protected by the Federal Confidentiality of Alcohol and Drug Abuse Patient Records regulations: The Federal rules restrict any use of the information to criminally investigate or prosecute any alcohol or drug abuse patient.[facility]In the event this information is protected by the Federal Confidentiality of Alcohol and Drug Abuse Patient Records regulations: The Federal rules restrict any use of the information to criminally investigate or prosecute any alcohol or drug abuse patient.[facility]In the event this information is protected by the Federal Confidentiality of Alcohol and Drug Abuse Patient Records regulations: The Federal rules restrict any use of the information to criminally investigate or prosecute any alcohol or drug abuse patient.[facility]In the event this information is protected by the Federal Confidentiality of Alcohol and Drug Abuse Patient Records regulations: The Federal rules restrict any use of the information to criminally investigate or prosecute any alcohol or drug abuse patient.[facility]In the event this information is protected by the Federal Confidentiality of Alcohol and Drug Abuse Patient Records regulations: The Federal rules restrict any use of the information to criminally investigate or prosecute any alcohol or drug abuse patient.[facility] Reason for Visit (unrecogniz ed section and content) Reason Comments Suspicious Skin Lesion Specialty Diagnoses / Procedures Referred By Jemima vyas Referred To Contact Dermatology Diagnoses Actinic keratosis Procedures NM OFFICE/OUTPATIENT NEW HIGH MDM 60 MINUTES Mason Johnson MD 112 [facility] 110 [place] [address] Phone: tel: fax: Barry Stevens, VEHICLE FUEL SYSTEMS CONVERTER-MILLWRIGHT HELPER [address] [facility] 350 [place] [address] Phone: tel: fax: Referral ID Status Reason Start Date Expiration Date V isits Requested Visits Authorized [id number] Closed Specialty Services Required 08/31/2024 02/27/2025 [address] Specialty Diagnoses / Procedures Referred By [facility] Referred To Contact MOLECULAR & FUNCTIONAL IMAGING Diagnoses Tongue cancer (HCC) Head and neck cancer (HCC) Procedures NM PET/CT SKULL-THIGH INITIAL PET IMAGING CT ATTENUATION SKULL BASE MID-THIGH Yordan Feliz MD [address] [place] [address] [place] [address] Molecular & Functional Imaging [address] [place] [address] Referral ID Status Reason Start Date Expiration Date V isits Requested Visits Authorized [id number] Closed Auto-Generate d Referral 08/14/2022 09/13/2023 1 1 Reason Comments Patient Education Reason Comments Consult Specialty Diagnoses / Procedures Referred By [facility] Referred To Contact Radiation Oncology / RADIATION ONCOLOGY Diagnoses Dr. 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 Images requested. Procedures NEW PATIENT RAD ONC Serene Morales [address] [place] [address] Yordan Feliz MD [address] [address] [place] [address] Referral ID Status Reason Start Date Expiration Date Visits Requested Visits Authorized [id number] New Request Financial Clearance Required - OON [...] Diagnoses / Procedures [facility]erred By 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 Referred To Contact Radiation Oncology / RADIATION ONCOLOGY Diagnoses 4 Week Follow Up Patient wanted to coordinate appt with Med Onc Procedures EST POST 90 DAY RAD TX Yordan Feliz MD [address] [address] [place] [address] Yordan Feliz MD [address] [place] [address] [place] [address] Referral ID Status Reason Start Date Expiration Date V isits Requested Visits Authorized [id number] Authorized 11/27/2022 07/07/2023 99 99 Reason Comments Cancer of the base of tongue Reason Comments Head and Neck Cancer Reason Comments Cancer of the base of tongue 1 month fol low up Reason Comments Care Coordination Results Reason Comments 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) Mass of right lung Procedures CT CHEST W IVCON DIAGNOSTIC COMPUTED TOMOGRAPHY THORAX W/CONTRAST John England MD [address] [place] [address] Ct Imaging [facility] Referral ID Status Reason Start Date Expiration Date V isits Requested Visits Authorized [id number] Closed Auto-Generate d Referral 06/19/2023 04/18/2024 1 1 Specialty Diagnoses / Procedures Referred By [facility] Referred To Contact CT IMAGING Diagnoses Lung nodules Procedures CT CHEST W IVCON DIAGNOSTIC COMPUTED TOMOGRAPHY THORAX W/CONTRAST John England MD [address] [place] [address] [place] [address] Ct Imaging [facility] Referral ID Status Reason Start Date Expiration Date V isits Requested Visits Authorized [id number] Closed Auto-Generate d Referral 03/13/2023 03/07/2024 1 1 Reason Comments Radiology NM Specialty Diagnoses / Procedures Referred By [facility] Referred To Contact MOLECULAR & FUNCTIONAL IMAGING Diagnoses 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 Procedures CT CHEST W IVCON DIAGNOSTIC COMPUTED TOMOGRAPHY THORAX W/CONTRAST John England MD [address] [place] [address] [place] [address] Referral ID Status Reason Start Date Expiration Date V isits Requested Visits Authorized [id number] Closed Auto-Generate d Referral 04/23/2024 11/21/2024 1 1 Reason Comments Establish Care Previous pcp dr corey adSees oncology twice yearly [facility] Diabetes Hypertension Reason Comments Cancer of the base of tongue 6 month fol low up Reason Comments Head and Neck Cancer Follow up Reason Comments Med Refill Reason Comments Cancer 1 month follow up Ca ncer of base of tongue Reason Comments Cancer 1 mo check cancer ba se of tongue Reason Comments Cancer 1 mo follow up Reason Comments Cancer 1 month follow up Reason Comments Cancer 1 month follow up to ngue CA Reason Comments Medicare Annual Wellness Visit Subsequen t Goals (unrecognized section and content) Goals may [...] BE BASED ON THE PRIMARY CLINICAL RECORDS. [employer] provides no warranty or guarantee of the accuracy or completeness of information in this document.
--- NOTE | 2024-10-13 10:11 | XR_ITS ---
[place] [id number] Patient Name: ANN RIVERA MRN: [id number] date: 1945 Sex: M Assigned Patient Location: [facility] Current Patient Location: [facility] Accession/Order Number: [id number] Exam Date: 10/13/2024 10:37 Report Date: 10/13/2024 10:38 At the request of: ORA STARKS Procedure: XR hip LT min 2V 2 views left plain film COMPARISON: None HISTORY: Left hip pain ACUTE FINDINGS: None DEGENERATIVE CHANGE: Mild joint space narrowing. Marginal spurring. Greater trochanter spurring. Suspected chondrocalcinosis. Subarticular cystic changes of superior acetabulum. SOFT TISSUE FINDINGS: Unremarkable JOINT EFFUSION: None POSTOP CHANGES: None BONY MINERALIZATION: Adequate XR/XR hip LT min 2V IMPRESSION: Moderate left hip degenerative changes. Impression dictated by: Eric Alcaraz M.D.10/13/2024 10:38 AM Dictation Location: [place] [address] Electronically authenticated by: [id number] Y Date: 10/13/2024 10:38
--- NOTE | 2024-10-13 10:11 | XR_ITS ---
The [address] [address] Patient Name: ANN RIVERA MRN: [id number] date: 1945 Sex: M Assigned Patient Location: [facility] Current Patient Location: [facility] Accession/Order Number: [id number] Exam Date: 10/13/2024 10:38 Report Date: 10/13/2024 10:40 At the request of: ORA STARKS Procedure: XR cervical spine 2-3V 3 viewscervical spine HISTORY: Chronic neck pain on the left. COMPARISON: None POSTOPERATIVE CHANGES: None BONY ALIGNMENT: Mild straightening HYPERMOBILITY::No bending imaging. LISTHESIS:Mild multilevel degenerative listhesis FRACTURE: None DISC DEGENERATION: Extensive multilevel disc space narrowing greatest at the C5-6 level. Endplate spurring. FACETS: Multilevel facet degeneration FORAMEN: Not assessed DENS: Intact CRANIOCERVICAL JUNCTION: Unremarkable SOFT TISSUES: Unremarkable XR/XR cervical spine 2-3V IMPRESSION: Extensive multilevel cervical spine degeneration greatest at the C5-6 level. Impression dictated by: Eric Alcaraz M.D.10/13/2024 10:40 AM Dictation Location: [place] [address] Electronically authenticated by: [id number] Y Date: 10/13/2024 10:40
== END 2024-10-13 09:44 | disposition home or self-care (01) ==
LOC: RAD 09:47
PROVIDERS: PCP Internal Medicine; Visit Provider Internal Medicine
DX: M50.30 Other cervical disc degeneration, unspecified cervical region (principal); M25.552 Pain in left hip
CPT/HCPCS: 72040; 73502

== ENCOUNTER 2024-12-09 12:43 | Outpatient (OUT) | payer MEDICARE, SELFPAY ==
--- NOTE | 2024-12-09 12:51 | XR_ITS ---
The [address] [address] Patient Name: ANN RIVERA MRN: [id number] date: 1945 Sex: M Assigned Patient Location: [facility] Current Patient Location: [facility] Accession/Order Number: [id number] Exam Date: 12/09/2024 13:17 Report Date: 12/09/2024 13:18 At the request of: ORA STARKS Procedure: XR knee LT 3V LEFT KNEE - 3 views COMPARISON: 08/01/2020 and MRI 11/07/2020 CLINICAL DATA: Left knee pain for the past few weeks laterally. No reported injury. AP, lateral and internal oblique views were obtained. There is osteopenia. No acute fracture or dislocation is identified. There is minimal medial tibiofemoral joint compartment narrowing. There is minor tricompartment marginal spurring. Chondrocalcinosis of the menisci is again seen. There is no knee effusion or soft tissue swelling. XR/XR knee LT 3V IMPRESSION: MILD DEGENERATIVE CHANGE INCLUDING MENISCAL CHONDROCALCINOSIS. NO ACUTE BONY FINDINGS. Impression dictated by: Mavis Corea M.D. 12/09/2024 1:18 PM Dictation Location: [place] [address] Electronically authenticated by: [id number] Y Date: 12/09/2024 13:18
== END 2024-12-09 12:44 | disposition home or self-care (01) ==
PROVIDERS: PCP Internal Medicine; Visit Provider Internal Medicine
DX: M25.462 Effusion, left knee (principal); M25.562 Pain in left knee; M11.262 Other chondrocalcinosis, left knee
CPT/HCPCS: 73562

== ENCOUNTER 2024-12-28 14:43 | Outpatient (OUT) | payer MEDICARE, SELFPAY ==
--- NOTE | 2024-12-28 14:48 | XR_ITS ---
The [place] [id number] Patient Name: ANN RIVERA MRN: [id number] date: 1945 Sex: M Assigned Patient Location: [facility] Current Patient Location: [facility] Accession/Order Number: [id number] Exam Date: 12/28/2024 16:30 Report Date: 12/28/2024 16:31 At the request of: ORA STARKS Procedure: XR lumbar spine 2-3V XR lumbar spine 2-3V 12/28/2024 3:06 PM SIGNS AND SYMPTOMS: ^Left Hip Pain PROTOCOLS: Frontal and lateral radiographs of the lumbar spine COMPARISON: None FINDINGS: The alignment, development and bony structures are normal. There is no fracture or destructive lesion. There is mild disc height loss throughout, greatest at L4-5. Facet hypertrophy is present at L3-L4, L4-5, and L5-S1. There is anterior osteophyte formation throughout. The sacrum and sacroiliac joints are normal. Atherosclerotic changes are present in the abdominal aorta. XR/XR lumbar spine 2-3V IMPRESSION: No fracture or subluxation. Degenerative changes are present throughout the lumbar spine, greatest at L4-5. Impression dictated by: El Burnett M.D. 12/28/2024 4:31 PM Dictation Location: [place] [address] Electronically authenticated by: [id number] Y Date: 12/28/2024 16:31
== END 2024-12-28 14:44 | disposition home or self-care (01) ==
PROVIDERS: PCP Internal Medicine; Visit Provider Internal Medicine
DX: M25.552 Pain in left hip (principal); M51.369 Other intervertebral disc degeneration, lumbar region without mention of lumbar back pain or lower extremity pain
CPT/HCPCS: 72100

== ENCOUNTER 2025-01-11 15:03 | Outpatient (RCR) | payer MEDICARE, SELFPAY | END 2025-01-29 08:21 | disposition home or self-care (01) | LOC: PT 15:03 | PROVIDERS: PCP Internal Medicine; Visit Provider Internal Medicine | DX: M54.16 Radiculopathy, lumbar region (principal); M25.552 Pain in left hip | CPT/HCPCS: 97110; 97140; 97161 ==

== ENCOUNTER 2025-03-12 09:50 | Outpatient (OUT) | payer MEDICARE, SELFPAY ==
--- OUTSIDE RECORDS SUMMARY | 2025-03-12 09:52 | XMS_ITS | Encounter Summary ---
Author Organization [facility] Address [address] [place] [address] Care Team Providers Care Registry Np Name Role Phone Mason Johnson MD Primary Care Provider [phone] Mason Johnson MD Unavailable [phone] Encounter Details Date Type Department Care Team (Late st Contact Info) Description 08/31/2024 Abstract [facility] [place] [facility] 112 [facility] 110 [place] [address] Mason Johnson MD 112 [facility] 110 [place], [place] [id number] Social History Tobacco Use Types Packs/Day Years Used Date Smoking Tobacco: Never Passive Smoke Exposure: Never Smokeless Tobacco: Never Alcohol Use Standard Drinks/Week Comments Yes 7 (1 standard drink = 0.6 oz pure alcohol) caffeine intake: 1-2 cups per day Humiliation, Afraid, Rape, and Kick questionnair e Answer Date Recorded Within the last year, have y ou been afraid of your partner or ex-partner? No 06/10/2023 Within the last year, have y ou been humiliated or emotionally abused in other ways by your partner or ex-partner? No Within the last year, have y ou been kicked, hit, slapped, or otherwise physically hurt by your partner or ex-partner? No 06/10/2023 Within the last year, have y ou been raped or forced to have any kind of sexual activity by your partner or ex-partner? No 06/10/2023 Social Connection and Isolation Panel [NHANES] A nswer Date Recorded In a typical week, how many times do you talk on the phone with family, friends, or neighbors? Three times a week 06/10/2023 How often do you get togethe r with friends or relatives? Three times a week 06/10/2023 How often do you attend chur ch or orthodoxy services? Never 06/10/2023 Do you belong to any clubs o r organizations such as christian groups, unions, fraternal or athletic groups, or school groups? No 06/10/2023 How often do you attend meet ings of the clubs or organizations you belong to? Never 06/10/2023 Are you , , di vorced, , never , or living with a partner? 06/10/2023 AUDIT-C Answer Date Recorded Q1: How often do you have a drink containing alcohol? 4 or more times a week 07/29/2023 Average Number of Drinks Not on file 024 Frequency of Binge Drinking Not on file 07/09 Overall Financial Resource Strain (CARDIA) Answe r Date Recorded How hard is it for you to pa y for the very basics like food, housing, medical care, and heating? Very hard 06/10/2023 PHQ-2 Answer Date Recorded Patient Health Questionnaire-2 Score 0 08/31/2024 [facility] of Occupat ional Health - Occupational Stress Questionnaire Answer Date Recorded Do you feel stress - tense, restless, nervous, or anxious, or unable to sleep at night because your mind is troubled all the time - these days? Not at all 06/10/2023 Exercise Vital Sign Answer Date Recorde d On average, how many days pe r week do you engage in moderate to strenuous exercise (like a brisk walk)? 7 days 06/10/2023 On average, how many minutes do you engage in exercise at this level? 30 min 06/10/2023 Hunger Vital Sign Answer Date Recorded Within the past 12 months, y ou worried that your food would run out before you got the money to buy more. Never true 06/10/20 23 Within the past 12 months, t he food you bought just didn't last and you didn't have money to get more. Never true 06/10/2023 PRAPARE - Transportation Answer Date Re corded In the past 12 months, has l ack of transportation kept you from medical appointments or from getting medications? No 10/2022 In the past 12 months, has l ack of transportation kept you from meetings, work, or from getting things needed for daily living? No 06/10/2023 Housing Stability Vital Sign Answer Germán e Recorded In the last 12 months, was t here a time when you were not able to pay the mortgage or rent on time? No 06/10/2023 Number of Places Lived in the Last Year Not on f ile 06/10/2023 In the last 12 months, was t here a time when you did not have a steady place to sleep or slept in a fpc (including now)? No 06/10/2023 Sex and Gender Information Value Date Recorded Sex Assigned at Not on file Legal Sex Male 7:58 PM EDT Gender Identity Not on file Sexual Orientation Not on file documented as of this encounter Functional Status * Over the past 2 weeks, how often have you been bothered by any of the following problems? Question Answer Date of Assessment Author Little interest or pleasure in doing things Not at all 08/31/2024 9:00 AM Niki Leyva LP N Feeling down, depressed, or hopeless Not at all 08/31/2024 9:00 AM Niki Leyva LP N Patient Health Questionnaire -2 Score 0 08/31/2024 9:00 AM Niki Leyva LP N documented as of this encounter Plan of Treatment Upcoming Encounters Date Type Department Care Team (Late st Contact Info) Description 03/26/2025 11:00 AM EDT [facility] Visit [facility] [place] [facility] [address] [facility] [address] [place] [phone] Mason Johnson MD [address] [facility] [address] [place] [address] 04/20/2025 8:00 AM EDT Office Visit [facility] [place] [facility] [address] [facility] [address] [place] [phone] Leela Schwartz MD [address] [facility] [address] [place] [address] 05/25/2025 9:20 AM EST [facility] [address] [address] [place] [phone] Mayte Stevens, ROAD GRADER OPERATOR-FINISH MENDER [address] [facility] [address] [place] [address] documented as of this encounter Visit Diagnoses Not on filedocumented in this encounter Additional Health Concerns Assessment Noted Time PHQ-9 Depression Total Score: 0 06/10/20 23 5:03 PM EST documented as of this encounter Care Teams Registry Np Relationship Specialty Start Date End Date Mason Johnson MD [address] [facility] 110 [place] [address] PCP - General Internal Medicine 05/18/24 Mason Johnson MD [address] [facility] 110 [place] [address] PCP - Medical [place] MA 07/08/2407/07 documented as of this encounter
--- OUTSIDE RECORDS SUMMARY | 2025-03-12 09:52 | XMS_ITS | Encounter Summary ---
Author Organization [facility] Address [address] [place] [address] Care Team Providers Care Linux Systems Engineer Name Role Phone Mason Johnson MD Primary Care Provider [phone] Mason Johnson MD Unavailable [phone] Encounter Details Date Type Department Care Team (Late st Contact Info) Description 11/06/2024 Abstract [facility] [place] [facility] 112 [facility] 110 [place] [address] Mason Johnson MD 112 [facility] 110 [place], [place] [phone] Social History Tobacco Use Types Packs/Day Years [...] often do you attend chur ch or druze services? Never 06/10/2023 Do you belong to any clubs o r organizations such as hoahaoism groups, unions, fraternal or athletic groups, or [...] Date Recorded Patient Health Questionnaire-2 Score 0 10/12/2024 [facility] of Occupat ional Health - Occupational Stress [...] place to sleep or slept in a snf (including now)? No 06/10/2023 Sex and Gender Information Value Date Recorded Sex Assigned at Not on file Legal Sex Male 7:58 PM EDT Gender Identity Not on file Sexual Orientation Not on file documented as of this encounter Plan of Treatment Upcoming Encounters Date Type Department Care Team (Late st Contact Info) Description 03/26/2025 11:00 AM EDT Office Visit [facility] [place] [facility] [address] [facility] [address] [place] [phone] Mason Johnson MD [address] [facility] [address] [place] [address] 04/20/2025 8:00 AM EDT Office Visit [facility] [address] [facility] [address] [place] [address] Leela Schwartz MD [address] [place] [address] 05/25/2025 9:20 AM EST Office Visit [facility] [place] [facility] [address] [place] [address] [place] [address] Mayte Stevens APRN-PRODUCT DEVELOPER [address] [facility] [address] [place] [address] documented as of this encounter Visit Diagnoses Not on filedocumented in this encounter Additional Health Concerns Assessment Noted Time PHQ-9 Depression Total Score: 0 06/10/20 23 5:03 PM EST documented as of this encounter Care Teams Linux Systems Engineer Relationship Specialty Start Date End Date Mason Johnson MD [address] [facility] 110 [place] [address] PCP - General Internal Medicine 05/18/24 Mason Johnson MD [address] [facility] 110 [place] [address] PCP - Medical [place] MA 07/08/2407/07 documented as of this encounter
--- OUTSIDE RECORDS SUMMARY | 2025-03-12 09:52 | XMS_ITS | Encounter Summary ---
Author Organization [facility] Address [address] [place] [address] Care Team Providers Care Case Fitter Name Role Phone Mason Johnson MD Primary Care Provider [phone] Mason Johnson MD Unavailable [phone] Encounter Details Date Type Department Care Team (Late st Contact Info) Description 12/28/2024 Abstract [facility] [place] [facility] 112 [facility] 110 [place] [address] Mason Johnson MD 112 [facility] 110 [place], [place] [phone] Social History Tobacco Use Types Packs/Day Years [...] often do you attend chur ch or anabaptist services? Never 06/10/2023 Do you belong to any clubs o r organizations such as buddhist groups, unions, fraternal or athletic groups, or [...] Date Recorded Patient Health Questionnaire-2 Score 0 12/28/2024 [facility] of Occupat ional Health - Occupational [...] place to sleep or slept in a fdc (including now)? No 06/10/2023 Sex and Gender [...] pleasure in doing things Not at all 12/28/2024 9:32 AM EDT Niki Alvarez LP N Feeling down, depressed, or hopeless Not at all 12/28/2024 9:32 AM EDT Niki Alvarez LP N Patient Health Questionnaire -2 Score 0 12/28/2024 9:32 AM EDT Niki Alvarez LP N documented as of this encounter Plan of Treatment Upcoming Encounters Date Type Department Care Team (Late st Contact Info) Description 03/26/2025 11:00 AM EDT Office Visit [facility] [place] [facility] [address] [facility] [address] [place] [address] Mason Johnson MD [address] [facility] [address] [place] [address] 04/20/2025 8:00 AM EDT Office Visit [facility] [place] [facility] [address] [facility] [address] [place] [address] Leela Schwartz MD [address] [facility] 130 [place] [address] 05/25/2025 9:20 AM EST Office Visit [facility] [place] [facility] [address] [place] [address] [place] [address] Mayte Stevens, VELVET STEAMER-PHONE ENGINEER [address] [place] [address] documented as of this encounter Visit Diagnoses Not on filedocumented in this encounter Additional Health Concerns Assessment Noted Time PHQ-9 Depression Total Score: 0 06/10/20 23 5:03 PM EST documented as of this encounter Care Teams Case Fitter Relationship Specialty Start Date End Date Mason Johnson MD [address] [facility] 110 [place] [address] PCP - General Internal Medicine 05/18/24 Mason Johnson MD [address] [facility] 110 [place] [address] PCP - Medical [place] MA 07/08/2407/07 documented as of this encounter
--- OUTSIDE RECORDS SUMMARY | 2025-03-12 09:52 | XMS_ITS | Encounter Summary ---
Author Organization [facility] Address [address] [place] [address] Care Team Providers Care Lumber Sticker Name Role Phone Mason Johnson MD Primary Care Provider [phone] Mason Johnson MD Unavailable [phone] Encounter Details Date Type Department Care Team (Late st Contact Info) Description 07/15/2024 Orders Only [facility] [place] [facility] [address] [facility] 110 [place] [address] Mariama Rodriguez, FIRST AID TEACHER [address] [facility] [address] [place], [place] [id number] Need for vaccination Social History Tobacco Use Types Packs/Day Years [...] often do you attend chur ch or quaker services? Never 06/10/2023 Do you belong to any clubs o r organizations such as jain groups, unions, fraternal or athletic groups, or [...] Date Recorded Patient Health Questionnaire-2 Score 0 12/16/2023 [facility] Occupat [facility] - Occupational [...] place to sleep or slept in a long term (including now)? No 06/10/2023 Sex and Gender [...] [facility] [place] [facility] [address] [facility] [address] [place] [address] Mason Johnson MD [address] [facility] [address] [place] [address] 04/20/2025 8:00 AM EDT Office Visit [facility] [place] [facility] [address] [facility] [address] [place] [address] Leela Schwartz MD [address] [facility] [address] [place] [address] 05/25/2025 9:20 AM EST Office Visit [facility] [place] [facility] [address] [place] [address] Mayte Stevens, REGULATOR INSPECTOR-PERINATAL SPECIALIST [address] [place] [address] documented as of this encounter Visit Diagnoses Diagnosis Need for vaccination Need for prophylactic vaccination and inoculation against unspecified single disease documented in this encounter Additional Health Concerns Assessment Noted Time PHQ-9 Depression Total Score: 0 06/10/20 23 5:03 PM EST documented as of this encounter Care Teams Lumber Sticker Relationship Specialty Start Date End Date Mason Johnson MD 112 [facility] 110 [place] [address] PCP - General Internal Medicine 05/18/24 Mason Johnson MD 112 [facility] [address] [place] [address] PCP - Medical Jm MURRAY 07/08/2407/07 documented as of this encounter
--- OUTSIDE RECORDS SUMMARY | 2025-03-12 09:52 | XMS_ITS | Encounter Summary ---
Author Organization [facility] Address [address] [place] [address] Care Team Providers Care Transmitter Chief Name Role Phone Shaikh YURI Drake Primary Care Provider [phone] Shaikh YURI Drake Primary Care Provider [phone] Unallocated, Noms Provider Primary Care Provi vidhya Mason Johnson MD Primary Care Provider [phone] Mason Johnson MD Unavailable [phone] Encounter Details Date Type Department Care Team (Late st Contact Info) Description 06/12/2023 Clinisync Result Encounter [facility] External Department Unsolicited Provider, Generic External Data Social History Tobacco Use Types Packs/Day Years Used Date Smoking Tobacco: Never Smokeless Tobacco: Never Alcohol Use Standard [...] often do you attend chur ch or voodoo services? Never 06/10/2023 Do you belong to any clubs o r organizations such as mormonism groups, unions, fraternal or athletic groups, or school groups? No 06/10/2023 How often do you attend meet ings of the clubs or organizations you belong to? Never 06/10/2023 Are you , , di vorced, , never , or living with a partner? 06/10/2023 AUDIT-C Answer Date Recorded Q1: How often do you have a drink containing alcohol? 4 or more times a week 06/10/2023 Q2: How many drinks containi ng alcohol do you have on a typical day when you are drinking? 3 or 4 Q3: How often do you have si x or more drinks on one occasion? Never 06/10/2023 Overall Financial Resource Strain (CARDIA) Answe r Date Recorded How hard is it for you to pa y for the very basics like food, housing, medical care, and heating? Very hard 06/10/2023 PHQ-2 Answer Date Recorded Patient Health Questionnaire-2 Score 0 06/10/2023 [facility] Occupat ional Health - Occupational [...] place to sleep or slept in a longterm (including now)? No 06/10/2023 Sex and Gender Information Value Date Recorded Sex Assigned at Not on file Legal Sex Male 7:58 PM EDT Gender Identity Not on file Sexual Orientation Not on file documented as of this encounter Plan of Treatment Upcoming Encounters Date Type Department Care Team (Late st Contact Info) Description 03/26/2025 11:00 AM EDT Office Visit [facility] [place] [facility] [address] [facility] [address] [place] [address] Mason Johnson MD [address] [facility] [address] [place] [address] 04/20/2025 8:00 AM EDT Office Visit [facility] [place] [facility] [address] [facility] [address] [place] [address] Leela Schwartz MD [address] [facility] [address] [place], [place] [address] 05/25/2025 9:20 AM EST Office Visit [facility] [place] [facility] [address] [place] [address] Mayte Stevens, METAL SPONGE MAKING MACHINE OPERATOR-ENGINEERING TEACHER [address] [place] [address] documented as of this encounter Procedures Procedure Name Priority Date/Time Associated Diagnosis Comments CT CHEST W IV CONTRAST 06/12/2023 8:15 AM EST documented in this encounter Results * CT chest w IV contrast (06/12/2023 8:15 AM EST) Anatomical Region Laterality Modality Body, Chest Computed Tomogra phy 06/12/2023 8:15 AM EST Narrative 06/12/2023 10:57 AM EST * * *Final Report* * * DATE OF EXAM: Jun 12 2023 8:15AM [facility] 0539 - CT CHEST W IVCON [...] 4, image 38), likely new sites of infection/inflammation. Again noted are nonspecific noncalcified pulmonary nodules, with herbicide service sales representative larger examples detailed as follows [...] No abnormality in the imaged upper abdomen. Pullman Car Repairer (topogram) images: No additional findings. IMPRESSION: 1. Since 03/14/2023, near complete resolution of right upper lobe mass/groundglass opacification, compatible with nearly resolved infection/inflammation. 2. New patchy regions of groundglass opacification within the anterior left upper lobe, compatible with new sites of infection/inflammation. Follow-up to resolution is suggested. 3. Small [...] any questions regarding this interpretation, please call [phone]. If you are unable to reach us at the number above, please feel free to contact [facility] at [phone]. [id number]^[email or web address] Procedure Note Radiology, Radiologist, - 06/12/2023 * * *Final Report* * * DATE OF EXAM: Jun 12 2023 8:15AM [facility] 0539 - CT CHEST W IVCON [...] viewed as resolving infection/benign process. Examination for ongoingsurveillance. Technique: Spiral CT acquisition of the chest [...] 4, image 38), likely new sites of infection/inflammation. Again noted are nonspecific noncalcified pulmonary nodules, with herbicide service sales representative larger examples detailed as follows on series 4: - Image 38, right lung apex, 0.3 cm (unchanged) - Image 112, right lower lobe along the major fissure, 0.4 cm(unchanged) Pleural space: No pleural effusion. No pleural [...] No abnormality in the imaged upper abdomen. Pullman Car Repairer (topogram) images: No additional findings. IMPRESSION: 1. Since 03/14/2023, near complete resolution of right upper lobe mass/groundglass opacification, compatible with nearly resolved infection/inflammation. 2. New patchy regions of groundglass opacification within the anterior left upper lobe, compatible with new sites of infection/inflammation. Follow-up to resolution is suggested. 3. Small [...] any questions regarding this interpretation, please call [phone]. If you are unable to reach us at the number above, please feel free to contact [facility] at [phone]. [id number] us Generic External Data Provider IMG CT PROCEDURES Final Result documented in this encounter Visit Diagnoses Not on filedocumented in this encounter Additional Health Concerns Assessment Noted Time PHQ-9 Depression Total Score: 0 06/10/20 23 5:03 PM EST documented as of this encounter Care Teams Transmitter Chief Relationship Specialty Start Date End Date Shaikh Drake MD PCP - General Internal Medicine 01/21/23 11/04/23 Shaikh Drake MD [address] [place] [address] PCP - General Internal Medicine 11/05/23 04/12/24 Unallocated, Tamanna Thomas MD [address] [facility] [place] [address] PCP - General Family Medicine 04/13/24 05/17/24 Mason Johnson MD [address] [facility] 110 [place] [address] PCP - General Internal Medicine 05/18/24 Mason Johnson MD 112 [facility] 110 [place] [address] PCP - Medical [place] TREVOR 07/08/2407/07 documented as of this encounter
--- OUTSIDE RECORDS SUMMARY | 2025-03-12 09:52 | XMS_ITS | Patient Health Record ---
Author Organization [facility] Address [address] [place] [address] Care Team Providers Care Clinical Evaluator Name Role Phone SHAIKH ASHBY Primary Care Provider Unavailabl e Reason For Referral No Information Problems Problem Type SNOMED Code ICD Code Onset Dates Problem Status W/U Status Risk Notes Problem [id number] Closed disloca tion of right acromioclavicular joint, initial encounter (S43.101A) Active confirmed Problem [id number] Separation of ri ght acromioclavicular joint, initial encounter (S43.101A) Active confirmed Plan Of Treatment No Information Insurance Providers Payer Name Payer Address Payer Phone Subscriber Number Group Number Insured Name Patient Relationship to Insured Coverage Start Date Coverage End Date [employer] [address] [address] [place] [address] [phone] [id number] ANN RIVERA Self - patient is the insured [facility] Medicare Supplement [address] [address] [place] [address] [id number] ANN RIVERA Self - patient is the insured Medical (General) History Medical History History ICD Code Cancer Heart Attack Diabetes High Blood Pressure
--- OUTSIDE RECORDS SUMMARY | 2025-03-12 09:52 | XMS_ITS | Encounter Summary ---
Author Organization [facility] Address [address] [place] [address] Care Team Providers Care Putty And Patch Worker Name Role Phone Mason Johnson MD Primary Care Provider [phone] Mason Johnson MD Unavailable [phone] Encounter Details Date Type Department Care Team (Late st Contact Info) Description 11/06/2024 Abstract [facility] [place] [facility] 112 [facility] 110 [place] [address] Mason Johnson MD 112 [facility] 110 [place], [place] [address] Social History Tobacco Use Types Packs/Day Years [...] often do you attend chur ch or mandaen services? Never 06/10/2023 Do you belong to any clubs o r organizations such as judaism groups, unions, fraternal or athletic groups, or [...] Recorded Patient Health Questionnaire-2 Score 0 10/12/2024 [facility] Occupat ional Health - Occupational [...] place to sleep or slept in a senior care (including now)? No 06/10/2023 Sex and Gender [...] [facility] [place] [facility] [address] [facility] [address] [place] [phone] Mason Johnson MD [address] [facility] 110 [place] [address] 04/20/2025 8:00 AM EDT Office Visit [facility] [place] [facility] [address] [facility] [address] [place] [address] Leela Schwartz MD [address] [place] [address] 05/25/2025 9:20 AM EST Office Visit [facility] [place] [facility] [address] [place] [address] Mayte Stevens APRN-CONTRACT CONSULTANT [address] [place] [address] documented as of this encounter Visit Diagnoses Not on filedocumented in this encounter Additional Health Concerns Assessment Noted Time PHQ-9 Depression Total Score: 0 06/10/20 23 5:03 PM EST documented as of this encounter Care Teams Putty And Patch Worker Relationship Specialty Start Date End Date Mason Johnson MD [address] [facility] 110 [place] [address] PCP - General Internal Medicine 05/18/24 Mason Johnson MD [address] [facility] 110 [place] [address] PCP - Medical [place] MA 07/08/2407/07 documented as of this encounter
--- OUTSIDE RECORDS SUMMARY | 2025-03-12 09:52 | XMS_ITS | Encounter Summary ---
Author Organization [facility] Address [address] [place] [address] Care Team Providers Care Compliance Field Technician Name Role Phone Unallocated, Noms Provider Primary Care Provi vidhya Mason Johnson MD Primary Care Provider [phone] Mason Johnson MD Unavailable [phone] Encounter Details Date Type Department Care Team (Late st Contact Info) Description 05/11/2024 Abstract [facility] [place] [facility] [address] [facility] 110 [place] [address] Unallocated, Noms Provider, [address] [place], [place] [id number] Social History Tobacco Use Types Packs/Day Years [...] often do you attend chur ch or hinduism services? Never 06/10/2023 Do you belong to any clubs o r organizations such as spiritism groups, unions, fraternal or athletic groups, or [...] Recorded Patient Health Questionnaire-2 Score 0 12/16/2023 [facility] - Occupational Stress Questionnaire Answer Date Recorded [...] place to sleep or slept in a prison (including now)? No 06/10/2023 Sex and Gender [...] [facility] [place] [facility] [address] [facility] [address] [place] [address] Mason Johnson MD [address] [facility] 110 [place] [address] 04/20/2025 8:00 AM EDT Office Visit [facility] [place] [facility] [address] [facility] [address] [place] [address] Leela Schwartz MD [address] [facility] [address] [place] [address] 05/25/2025 9:20 AM EST Office Visit [facility] [place] [facility] [address] [place] [address] Mayte Stevens, HORSE SHOER-HOUSE FATHER [address] [place] [address] documented as of this encounter Visit Diagnoses Not on filedocumented in this encounter Additional Health Concerns Assessment Noted Time PHQ-9 Depression Total Score: 0 06/10/20 23 5:03 PM EST documented as of this encounter Care Teams Compliance Field Technician Relationship Specialty Start Date End Date Unallocated, Noms Provider, [address] [place] [address] PCP - General Family Medicine 04/13/24 05/17/24 Mason Johnson MD [address] [facility] 110 [place] [address] PCP - General Internal Medicine 05/18/24 Mason Johnson MD [address] [facility] 110 [place] [address] PCP - Medical [facility] 07/08/2407/07 documented as of this encounter
--- OUTSIDE RECORDS SUMMARY | 2025-03-12 09:52 | XMS_ITS | Encounter Summary ---
Author Organization [facility] Address [address] [place] [address] Care Team Providers Care Supervisor Boilermaking Shop Name Role Phone Mason Johnson MD Primary Care Provider [phone] Mason Johnson MD Unavailable [phone] Encounter Details Date Type Department Care Team (Late st Contact Info) Description 09/29/2024 Abstract [facility] [place] [facility] [address] [facility] 110 [place] [address] Mason Johnson MD 112 [facility] 110 [place], [place] [id number] Social History Tobacco Use Types Packs/Day Years [...] often do you attend chur ch or lutheran services? Never 06/10/2023 Do you belong to any clubs o r organizations such as orthodoxy groups, unions, fraternal or athletic groups, or [...] Recorded Patient Health Questionnaire-2 Score 0 08/31/2024 [facility] Occupat ional Health - Occupational Stress [...] [place] [facility] [address] [facility] [address] [place] [address] Mason Johnson MD [address] [facility] 110 [place] [address] 04/20/2025 8:00 AM EDT Office Visit [facility] [place] [facility] [address] [facility] [address] [place] [address] Leela Schwartz MD [address] [place] [address] 05/25/2025 9:20 AM EST Office Visit [facility] [place] [facility] [address] [place] [address] Mayte Stevens APRN-ADOLESCENT COORDINATOR [address] [place] [address] documented as of this encounter Visit Diagnoses Not on filedocumented in this encounter Additional Health Concerns Assessment Noted Time PHQ-9 Depression Total Score: 0 06/10/20 23 5:03 PM EST documented as of this encounter Care Teams Supervisor Boilermaking Shop Relationship Specialty Start Date End Date Mason Johnson MD [address] [facility] 110 [place] [address] PCP - General Internal Medicine 05/18/24 Mason Johnson MD [address] [facility] 110 [place] [address] PCP - Medical [place] MA 07/08/2407/07 documented as of this encounter
--- OUTSIDE RECORDS SUMMARY | 2025-03-12 09:53 | XMS_ITS | Encounter Summary ---
Author Organization [facility] Address [address] [place] [address] Care Team Providers Care Surgery Center Administrator Name Role Phone Shaikh YURI Drake Primary Care Provider [phone] Shaikh YURI Drake Primary Care Provider [phone] Unallocated, Noms Provider Primary Care Provi vidhya Mason Johnson MD Primary Care Provider [phone] Mason Johnson MD Unavailable [phone] Encounter Details Date Type Department Care Team (Late st Contact Info) Description 10/24/2023 Orders Only [facility] [address] [place] [address] Shaikh Drake MD [address] [place] [address] Social History Tobacco Use Types Packs/Day Years [...] often do you attend chur ch or temple services? Never 06/10/2023 Do you belong to any clubs o r organizations such as congregational groups, unions, fraternal or athletic groups, or [...] Recorded Patient Health Questionnaire-2 Score 0 06/10/2023 [facility] Occupat ional Health - [...] place to sleep or slept in a half-way (including now)? No 06/10/2023 Sex and Gender Information Value Date Recorded Sex Assigned at Not on file Legal Sex Male 7:58 PM EDT Gender Identity Not on file Sexual Orientation Not on file documented as of this encounter Plan of Treatment Upcoming Encounters Date Type Department Care Team (Late st Contact Info) Description 03/26/2025 11:00 AM EDT Office Visit [facility] [place] [facility] [address] [facility] 110 [place] [phone] Mason Johnson MD [address] [facility] 110 [place] [address] 04/20/2025 8:00 AM EDT Office Visit [facility] [place] [facility] [address] [facility] [address] [place] [address] Leela Schwartz MD [address] [facility] 130 [place] [address] 05/25/2025 9:20 AM EST Office Visit [facility] [place] [facility] [address] [place] [address] Mayte Stevens Ricci, BUYER PLANNER-SURVEILLANCE SPECIALIST [address] [place] [address] documented as of this encounter Visit Diagnoses Not on filedocumented in this encounter Additional Health Concerns Assessment Noted Time PHQ-9 Depression Total Score: 0 06/10/20 23 5:03 PM EST documented as of this encounter Care Teams Surgery Center Administrator Relationship Specialty Start Date End Date Shaikh Drake MD PCP - General Internal Medicine 01/21/23 11/04/23 Shaikh Drake MD [address] [place] [address] PCP - General Internal Medicine 11/05/23 04/12/24 Unallocated, Noms Provider, [address] [place] [address] PCP - General Family Medicine 04/13/24 05/17/24 Mason Johnson MD [address] [facility] 110 [place] [address] PCP - General Internal Medicine 05/18/24 Mason Johnson MD [address] [facility] 110 [place] [address] PCP - Medical [place] MA 07/08/2407/07 documented as of this encounter
--- OUTSIDE RECORDS SUMMARY | 2025-03-12 09:53 | XMS_ITS | Encounter Summary ---
Author Organization [facility] Address [address] [place] [address] Care Team Providers Care Senior Software Development Manager Name Role Phone Unallocated, Noms Provider Primary Care Provi vidhya Mason Johnson MD Primary Care Provider [phone] Mason Johnson MD Unavailable [phone] Encounter Details Date Type Department Care Team (Late st Contact Info) Description 04/23/2024 Clinisync Result Encounter [facility] External Department Unsolicited [...] often do you attend chur ch or gnosticism services? Never 06/10/2023 Do you belong to any clubs o r organizations such as evangelical groups, unions, fraternal or athletic groups, or [...] Recorded Patient Health Questionnaire-2 Score 0 12/16/2023 [facility] - Occupational Stress Questionnaire Answer Date Recorded [...] place to sleep or slept in a chcf (including now)? No 06/10/2023 Sex and Gender Information Value Date Recorded Sex Assigned at Not on file Legal Sex Male 7:58 PM EDT Gender Identity Not on file Sexual Orientation Not on file documented as of this encounter Plan of Treatment Upcoming Encounters Date Type Department Care Team (Late st Contact Info) Description 03/26/2025 11:00 AM EDT [facility] [place] [facility] [address] [place] [address] Mason Johnson MD [address] [place] [address] 04/20/2025 8:00 AM EDT Office Visit [facility] [place] [facility] [address] [place] [address] Leela Schwartz MD [address] [place] [address] 05/25/2025 9:20 AM EST Office Visit [facility] [place] [facility] [address] [place] [address] Mayte Stevens APRN-BIRD RAISER [address] [place] [address] documented as of this encounter Procedures Procedure Name Priority Date/Time Associated Diagnosis Comments CT CHEST W IV CONTRAST 04/23/2024 9:58 AM EDT [facility] VIT B12 SERPL-MCNC Routine 04/23/2024 8:30 AM EDT [facility] IRON+TIBC PNL SERPL Routine 04/23/2024 8:30 AM EDT [facility] FOLATE SERPL-MCNC Routine 04/23/2024 8:30 AM EDT [facility] FERRITIN SERPL-MCNC Routine 04/23/2024 8:30 AM EDT documented in this encounter Results * CT chest w IV contrast (04/23/2024 9:58 AM EDT) Anatomical Region Laterality Modality Body, Chest Computed Tomogra phy 04/23/2024 9:58 AM EDT Narrative 04/23/2024 5:52 PM EDT * * *Final Report* * * DATE OF EXAM: Apr 23 2024 9:58AM [facility] 0539 - CT CHEST W IVCON [...] any questions regarding this interpretation, please call [phone]. If you are unable to reach us at the number above, please feel free to contact [facility] at [phone]. [id number]^AGFA_IDC^SI^ACN Procedure Note Radiology, Radiologist, - 04/23/2024 * * *Final Report* * * DATE OF EXAM: Apr 23 2024 9:58AM [facility] 0539 - CT CHEST W IVCON [...] any questions regarding this interpretation, please call [phone]. If you are unable to reach us at the number above, please feel free to contact [facility] at [phone]. [id number]^AGFA_IDC^SI^ACN us Generic External Data Provider IMG CT PROCEDURES Final Result * [facility] FOLATE SERPL-MCNC (04/23/2024 8:30 AM EDT) [facility] FOLATE SERPL-MCNC 12.1 >4.7 ng/mL [facility] 04/23/2024 8:30 AM EDT 04/23/2024 1:59 PM EDT Narrative CLINISYNC - 04/23/2024 6:26 PM EDT Specimen Type: BLOOD SPECIMEN Ordering Facility: [facility] Address: [address] [place] [address] Original Ordering Provider: TAYE ENGLAND us Generic External Data Provider CLINISYRAFA F inal Result CLINISYRAFA [facility] [address] [facility] [address] [address] * [facility] FERRITIN SERPL-MCNC (04/23/2024 8:30 AM EDT) [facility] FERRITIN SERPL-MCNC 158.0 30.3 - 565.7 ng/mL [facility] 04/23/2024 8:30 AM EDT 04/23/2024 1:59 PM EDT Narrative CLINISYNC - 04/23/2024 6:26 PM EDT Specimen Type: BLOOD SPECIMEN Ordering Facility: [facility] Address: [address] [place] [address] Original Ordering Provider: TAYE ENGLAND Generic External Data Provider CLINISYNC F inal Result Performing Organization Address [facility] Co de Phone Number KIZZYISYNC CC [address] [place] [address] * [facility] VIT B12 SERPL-MCNC (04/23/2024 8:30 AM EDT) [facility] VIT B12 SERPL-MCNC 349 232 - 1,245 pg/mL C[facility] 04/23/2024 8:30 AM EDT 04/23/2024 1:59 PM EDT Narrative CLINISYNC - 04/23/2024 6:26 PM EDT Specimen Type: BLOOD SPECIMEN Ordering Facility: [facility] Address: [address] [place] [address] Original Ordering Provider: TAYE ENGLAND Generic External Data Provider CLINISYNC F inal Result Performing Organization Address [facility] Co de Phone Number TAYNC CC [address] [place] [address] * [facility] IRON+TIBC PNL SERPL (04/23/2024 8:30 AM EDT) [facility] IRON SERPL-MCNC 78 41 - 186 ug/dL CCF CCF TIBC SERPL-MCNC 300 232 - 386 ug/dL CCF CCF IRON/TIBC SERPL-SRTO 26.0 15.0 - 57.0 % [facility] 04/23/2024 8:30 AM EDT 04/23/2024 1:59 PM EDT Narrative BHUPENDRA - 04/23/2024 6:10 PM EDT Specimen Type: BLOOD SPECIMEN Ordering Facility: [facility] Address: [address] [facility] [place] [address] Original Ordering Provider: TAYE ENGLAND us Generic External Data Provider BHUPENDRA F inal Result BHUPENDRA [facility] [address] [facility] [address] [place] [address] documented in this encounter Visit Diagnoses Not on filedocumented in this encounter Additional Health Concerns Assessment Noted Time PHQ-9 Depression Total Score: 0 06/10/20 23 5:03 PM EST documented as of this encounter Care Teams Senior Software Development Manager Relationship Specialty Start Date End Date Unallocated, Noms Provider, [address] [place] [address] PCP - General Family Medicine 04/13/24 05/17/24 Mason Johnson MD [address] [facility] 110 [place] [address] PCP - General Internal Medicine 05/18/24 Mason Johnson MD [address] [facility] 110 [place] [address] PCP - Medical [place] 07/08/2407/07 documented as of this encounter
--- OUTSIDE RECORDS SUMMARY | 2025-03-12 09:53 | XMS_ITS | Encounter Summary ---
Author Organization [facility] Address [address] [place] [address] Care Team Providers Care Nuclear Medicine Officer Name Role Phone Mason Johnson MD Primary Care Provider [phone] Mason Johnson MD Unavailable [phone] Encounter Details Date Type Department Care Team (Late st Contact Info) Description 01/19/2025 Abstract [facility] [place] [facility] [address] [facility] 110 [place] [address] Msaon Johnson MD 112 [facility] 110 [place], [place] [id number] Social History Tobacco Use Types Packs/Day Years [...] often do you attend chur ch or confucianist services? Never 06/10/2023 Do you belong to any clubs o r organizations such as oriental orthodox groups, unions, fraternal or athletic groups, or [...] Recorded Patient Health Questionnaire-2 Score 0 12/28/2024 [facility] of Occupat ional Health - Occupational Stress [...] [facility] [place] [facility] [address] [facility] [address] [place] [address] Mason Johnson MD [address] [facility] 110 [place] [address] 04/20/2025 8:00 AM EDT Office Visit [facility] [place] [facility] [address] [facility] [address] [place] [address] Leela Schwartz MD [address] [place] [address] 05/25/2025 9:20 AM EST Office Visit [facility] [place] [facility] [address] [place] [address] Mayte Stevens APRN-COOK'S ASSISTANT [address] [place] [address] documented as of this encounter Visit Diagnoses Not on filedocumented in this encounter Additional Health Concerns Assessment Noted Time PHQ-9 Depression Total Score: 0 06/10/20 23 5:03 PM EST documented as of this encounter Care Teams Nuclear Medicine Officer Relationship Specialty Start Date End Date Mason Johnson MD [address] [facility] 110 [place] [address] PCP - General Internal Medicine 05/18/24 Mason Johnson MD [address] [facility] 110 [place] [address] PCP - Medical [place] 07/08/2407/07 documented as of this encounter
--- OUTSIDE RECORDS SUMMARY | 2025-03-12 09:53 | XMS_ITS | Encounter Summary ---
Author Organization [facility] Address [address] [place] [address] Care Team Providers Care Calciner Operator Helper Name Role Phone Shaikh YURI Drake Primary Care Provider [phone] Shaikh YURI Drake Primary Care Provider [phone] Unallocated, Noms Provider Primary Care Provi vidhya Mason Johnson MD Primary Care Provider Mason Johnson MD Unavailable Encounter Details Date Type Department Care Team (Late st Contact Info) Description 10/16/2023 Clinisync Result Encounter N[facility] External Department Unsolicited [...] any clubs o r organizations such as mosque groups, unions, fraternal or athletic groups, or [...] Recorded Patient Health Questionnaire-2 Score 0 06/10/2023 [facility]ational [facility] Questionnaire Answer Date [...] place to sleep or slept in a mcc (including now)? No 06/10/2023 Sex and Gender [...] [facility] [place] [facility] [address] [facility] [address] [place] [address] Mason Johnson MD [address] [facility] 110 [place] [address] 04/20/2025 8:00 AM EDT Office Visit [facility] [place] [facility] [address] [facility] [address] [place] [address] Leela Schwartz MD [address] [facility] [address] [place] [address] 05/25/2025 9:20 AM EST Office Visit [facility] [place] [facility] [address] [place] [address] Mayte Stevens, PETROLEUM GEOLOGY FACULTY MEMBER-SUPERVISOR [employer] [address] [place] [address] documented as of this encounter Procedures Procedure Name Priority Date/Time Associated Diagnosis Comments CT CHEST W IV CONTRAST 10/16/2023 12:43 PM EDT documented in this encounter Results * CT chest w IV contrast (10/16/2023 12:43 PM EDT) Anatomical Region Laterality Modality Body, Chest Computed Tomogra phy 10/16/2023 12:4 3 PM EDT Narrative 10/17/2023 9:10 AM EDT * * *Final Report* * * DATE OF EXAM: Oct 16 2023 12:43PM [facility] 0539 - CT CHEST W [...] any questions regarding this interpretation, please call [phone]. If you are unable to reach us at the number above, please feel free to contact [facility] at [phone]. [id number]^AGFA_IDC^SI^ACN Procedure Note Radiology, Radiologist, - 10/17/2023 * * *Final Report* * * DATE OF EXAM: Oct 16 2023 12:43PM [facility] 0539 - CT CHEST W [...] any questions regarding this interpretation, please call [phone]. If you are unable to reach us at the number above, please feel free to contact [facility] at [phone]. [id number]^AGFA_IDC^SI^ACN us Generic External Data Provider IMG CT PROCEDURES Final Result documented in this encounter Visit Diagnoses Not on filedocumented in this encounter Additional Health Concerns Assessment Noted Time PHQ-9 Depression Total Score: 0 06/10/20 23 5:03 PM EST documented as of this encounter Care Teams Calciner Operator Helper Relationship Specialty Start Date End Date Shaikh Drake MD PCP - General Internal Medicine 01/21/23 11/04/23 Shaikh Drake MD [address] [place] [address] PCP - General Internal Medicine 11/05/23 04/12/24 Unallocated, Noms Provider, [address] [place] [address] PCP - General Family Medicine 04/13/24 05/17/24 Mason Johnson MD [address] [place] [address] PCP - General Internal Medicine 05/18/24 Mason Johnson MD [address] [place] [address] PCP - Medical [place] 07/08/2407/07 documented as of this encounter
--- OUTSIDE RECORDS SUMMARY | 2025-03-12 09:53 | XMS_ITS | Encounter Summary ---
Author Organization [facility] Address [address] [place] [address] Care Team Providers Care Welding Equipment Sales Representative Name Role Phone Mason Johnson MD Primary Care Provider [phone] Mason Johnson MD Unavailable [phone] Encounter Details Date Type Department Care Team (Late st Contact Info) Description 02/02/2025 Abstract [facility] [place] [facility] 112 [facility] 110 [place] [address] Mason Johnson MD 112 [facility] 110 [place], [place] [id number] Social History Tobacco Use Types Packs/Day Years [...] often do you attend chur ch or mormonism services? Never 06/10/2023 Do you belong to any clubs o r organizations such as uatsdin groups, unions, fraternal or athletic groups, or [...] Recorded Patient Health Questionnaire-2 Score 0 12/28/2024 [facility] of Occupat ional Health - Occupational [...] place to sleep or slept in a fci (including now)? No 06/10/2023 Sex and Gender [...] [facility] [place] [facility] [address] [facility] [address] [place] [phone] Mason Johnson MD [address] [facility] [address] [place] [address] 04/20/2025 8:00 AM EDT Office Visit [facility] [place] [facility] [address] [facility] [address] [place] [address] Leela Schwartz MD [address] [place] [address] 05/25/2025 9:20 AM EST Office Visit [facility] [place] [facility] [address] [place] [address] Mayte Stevens APRN-GARMENT PARTS CUTTER MACHINE [address] [place] [address] documented as of this encounter Visit Diagnoses Not on filedocumented in this encounter Additional Health Concerns Assessment Noted Time PHQ-9 Depression Total Score: 0 06/10/20 23 5:03 PM EST documented as of this encounter Care Teams Welding Equipment Sales Representative Relationship Specialty Start Date End Date Mason Johnson MD [address] [facility] 110 [place] [address] PCP - General Internal Medicine 05/18/24 Mason Johnson MD [address] [facility] 110 [place] [address] PCP - Medical [place] 07/08/2407/07 documented as of this encounter
--- OUTSIDE RECORDS SUMMARY | 2025-03-12 09:53 | XMS_ITS | Encounter Summary ---
Author Organization [facility] Address [address] [place] [address] Care Team Providers Care Tube Fitter Name Role Phone Shaikh YURI Drake Primary Care Provider [phone] Shaikh YURI Drake Primary Care Provider [phone] Unallocated, Noms Provider Primary Care Provi vidhya Mason Johnson MD Primary Care Provider [phone] Mason Johnson MD Unavailable [phone] Encounter Details Date Type Department Care [...] often do you attend chur ch or buddhist services? Never 06/10/2023 Do you belong to any clubs o r organizations such as confucianist groups, unions, fraternal or athletic groups, or [...] Recorded Patient Health Questionnaire-2 Score 0 06/10/2023 [facility] - Occupational Stress Questionnaire Answer [...] place to sleep or slept in a intermediate (including now)? No 06/10/2023 Sex and Gender [...] [facility] [place] [facility] [address] [facility] [address] [place] [address] Mason Johnson MD [address] [facility] 110 [place] [address] 04/20/2025 8:00 AM EDT Office Visit [facility] [place] [facility] [address] [facility] [address] [place] [address] Leela Schwartz MD [address] [facility] [address] [place] [address] 05/25/2025 9:20 AM EST Office Visit [facility] [place] [facility] [address] [place] [address] Mayte Stevens, MUSHROOM CUTTER-CONTAMINATED LAND CONSULTANT [address] [place] [address] documented as of this encounter Procedures Procedure Name Priority Date/Time Associated Diagnosis Comments CT NECK SOFT TISSUE W IVCON 10/16/2023 12:43 PM EDT documented in this encounter Results * CT NECK SOFT TISSUE W IVCON (10/16/2023 12:43 PM EDT) Anatomical Region Laterality Modality Other 10/16/2023 12:4 3 PM EDT Narrative 10/16/2023 1:32 PM EDT * * *Final Report* * * DATE OF EXAM: Oct 16 2023 12:43PM [facility] 0013 - CT NECK SOFT [...] or elsewhere to suggest residual/recurrent disease. Extensive posttreatment/postradiation changes including oropharyngeal/hypopharyngeal mucosal edema, bilateral submandibular gland heterogeneity and [...] any questions regarding this interpretation, please call [phone]. If you are unable to reach us at the number above, please feel free to contact [facility] at [phone]. [id number]^AGFA_IDC^SI^ACN Procedure Note Radiology, Radiologist, - 10/16/2023 * * *Final Report* * * DATE OF EXAM: Oct 16 2023 12:43PM [facility] 0013 - CT NECK SOFT [...] or elsewhere to suggest residual/recurrent disease. Extensive posttreatment/postradiation changes including oropharyngeal/hypopharyngeal mucosal edema, bilateral submandibular gland heterogeneity and [...] CT chest for complete evaluation of the intrathoraciccontents. IMPRESSION: Primary: NI-RADS 1. Expected post-treatment changes [...] any questions regarding this interpretation, please call [phone]. If you are unable to reach us at the number above, please feel free to contact [facility] at [phone]. [id number]^AGFA_IDC^SI^ACN us Generic External Data Provider CLINISYNC IMAGING Final Result documented in this encounter Visit Diagnoses Not on filedocumented in this encounter Additional Health Concerns Assessment Noted Time PHQ-9 Depression Total Score: 0 06/10/20 23 5:03 PM EST documented as of this encounter Care Teams Tube Fitter Relationship Specialty Start Date End Date Shaikh Drake MD PCP - General Internal Medicine 01/21/23 11/04/23 Shaikh Drake MD [address] [place] [address] PCP - General Internal Medicine 11/05/23 04/12/24 Unallocated, Noms Provider, [address] [place] [address] PCP - General Family Medicine 04/13/24 05/17/24 Mason Johnson MD [address] [facility] [address] [place] [address] PCP - General Internal Medicine 05/18/24 Mason Johnson MD [address] [facility] [address] [place] [address] PCP - Medical [facility] 07/08/2407/07 documented as of this encounter
--- OUTSIDE RECORDS SUMMARY | 2025-03-12 09:53 | XMS_ITS | Encounter Summary ---
Author Organization [facility] Address [address] [place] [address] Care Team Providers Care Digital Manager Name Role Phone Unallocated, Noms Provider Primary Care Provi vidhya Mason Johnson MD Primary Care Provider [phone] Mason Johnson MD Unavailable [phone] Encounter Details Date Type Department Care [...] often do you attend chur ch or latter day services? Never 06/10/2023 Do you belong to any clubs o r organizations such as latter-day groups, unions, fraternal or athletic groups, or [...] Recorded Patient Health Questionnaire-2 Score 0 12/16/2023 [facility] - Occupational Stress Questionnaire Answer [...] place to sleep or slept in a alf (including now)? No 06/10/2023 Sex and Gender [...] [facility] [place] [facility] [address] [place] [address] Mason Johnson MD [address] [place] [address] 04/20/2025 8:00 AM EDT Office Visit [facility] [place] [facility] [address] [place] [address] Leela Schwartz MD [address] [place] [address] 05/25/2025 9:20 AM EST Office Visit [facility] [place] [facility] [address] [place] [address] Mayte Stevens APRN-CLINICAL REVIEW SPECIALIST [address] [place] [address] documented as of this encounter Procedures Procedure Name Priority Date/Time Associated Diagnosis Comments CT NECK SOFT TISSUE W IVCON 04/23/2024 9:58 AM EDT documented in this encounter Results * CT NECK SOFT TISSUE W IVCON (04/23/2024 9:58 AM EDT) Anatomical Region Laterality Modality Other 04/23/2024 9:58 AM EDT Narrative 04/23/2024 10:50 AM EDT * * *Final Report* * * DATE OF EXAM: Apr 23 2024 9:58AM [facility] 0013 - CT NECK SOFT TISSUE [...] and caliber. Views of the superior lung krishna remain unremarkable. There is no suspicious osseous lesion. 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 Director Of Physiotherapy Services (topogram) images: No additional findings. IMPRESSION: 1. [...] any questions regarding this interpretation, please call [phone]. If you are unable to reach us at the number above, please feel free to contact [facility] at [phone]. [id number]^AGFA_IDC^SI^ACN Procedure Note Radiology, Radiologist, - 04/23/2024 * * *Final Report* * * DATE OF EXAM: Apr 23 2024 9:58AM [facility] 0013 - CT NECK SOFT TISSUE [...] and caliber. Views of the superior lung krishna remain unremarkable. There is no suspicious osseous lesion. 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 Director Of Physiotherapy Services (topogram) images: No additional findings. IMPRESSION: 1. [...] any questions regarding this interpretation, please call [phone]. If you are unable to reach us at the number above, please feel free to contact [facility] at [phone]. [id number]^AGFA_IDC^SI^ACN us Generic External Data Provider CLINISYNC IMAGING Final Result documented in this encounter Visit Diagnoses Not on filedocumented in this encounter Additional Health Concerns Assessment Noted Time PHQ-9 Depression Total Score: 0 06/10/20 23 5:03 PM EST documented as of this encounter Care Teams Digital Manager Relationship Specialty Start Date End Date Unallocated, Noms Provider, [address] [place] [address] PCP - General Family Medicine 04/13/24 05/17/24 Mason Johnson MD 112 [facility] 110 [place] [address] PCP - General Internal Medicine 05/18/24 Mason Johnson MD [address] [facility] 110 [place] [address] PCP - Medical [facility] 07/08/2407/07 documented as of this encounter
--- OUTSIDE RECORDS SUMMARY | 2025-03-12 09:53 | XMS_ITS | Encounter Summary ---
Author Organization [facility] Address [address] [facility] [place] [address] Care Team Providers Care Hr Administrative Assistant Name Role Phone Mason Sage MD Primary Care Provider [phone] Mason Sage MD Unavailable [phone] Reason for Referral * Imaging (Routine) - Authorized Specialty Diagnoses / Procedures Referred By Contac t Referred To Contact Acute [facility] Diagnoses Primary osteoarthritis of left hip Left lumbar radiculitis Left hip pain Procedures MR hip left wo IV contrast Mason Sage MD [address] [facility] [address] [place] [address] Phone: tel: fax: [facility] [address] [place] [address] Phone: tel:[phone] fax:[phone] Referral ID Status Reason Start Date Expiration Date V isits Requested Visits Authorized [id number] Authorized 03/01/2025 08/28/2025 1 1 Reason for Visit * Reason Onset Date Comments mri request 03/01/2025 Encounter Details Date Type Department Care Team (Late st Contact Info) Description 03/01/2025 Telephone [facility] [place] [facility] [address] [facility] [address] [place] [address] Mason Sage MD 112 [facility] 110 [place], [place] [id number] mri request Social History Tobacco Use Types Packs/Day Years [...] often do you attend chur ch or protestant services? Never 06/10/2023 Do you belong to any clubs o r organizations such as presybeterian groups, unions, fraternal or athletic groups, or [...] Recorded Patient Health Questionnaire-2 Score 0 12/28/2024 [facility] - Occupational [...] on file documented as of this encounter Miscellaneous Notes * Telephone Encounter - Niki Kim, CARLOS - 03/01/2025 11:45 AM EDT Called pt his PT was to work on lis left hip--he states that his hip is still giving him problems and he would like to go ahead with mri--order placed-sent to [facility] per his request * Telephone Encounter - Radha Padilla - 03/01/2025 10:06 AM EDT Patient states that he has completed his physical therapy for his knee. He was told by his therapist to wait 30 days after his last session to see if it will heal. Patient states that he has waited the 30 days after the last pt appt and he still has pain in his knee. He said that dr sage said the next step would be to get an mri done. Patient has an appt mid March with dr sage but wondered if he could get the mri ordered before hand so he has the results at the next appt. documented in this encounter Plan of Treatment Upcoming Encounters Date Type Department Care Team (Late st Contact Info) Description 03/26/2025 11:00 AM EDT Office Visit [facility] [place] [facility] [address] [facility] [address] [place] [address] Mason Sage MD [address] [facility] 110 [place] [address] 04/20/2025 8:00 AM EDT Office Visit [facility] [place] [facility] [address] [facility] [address] [place] [address] Leela Schwartz MD [address] [facility] [address] [place] [address] 05/25/2025 9:20 AM EST Office Visit [facility] [place] [facility] [address] [place] [address] Mayte Stevens APRN-PACKAGE SORTER [address] [place] [address] Scheduled Orders Name Type Priority Associated Diagnoses Orde r Schedule MR hip left wo IV contrast Imaging Routine Primary osteoarthritis of left hip Left lumbar radiculitis Left hip pain Expected: 03/01/2025, Expires: 03/01/2026 documented as of this encounter Visit Diagnoses Diagnosis Primary osteoarthritis of left hip Left lumbar radiculitis Left hip pain Pain in joint, pelvic region and thigh documented in this encounter Additional Health Concerns Assessment Noted Time PHQ-9 Depression Total Score: 0 06/10/20 23 5:03 PM EST documented as of this encounter Care Teams Hr Administrative Assistant Relationship Specialty Start Date End Date Mason Sage MD [address] [facility] [address] [place] [address] PCP - General Internal Medicine 05/18/24 Mason Sage MD [address] [facility] [address] [place] [address] PCP - Medical [place] 07/08/2407/07 documented as of this encounter
--- OUTSIDE RECORDS SUMMARY | 2025-03-12 09:53 | XMS_ITS ---
Author Organization [facility] Address [address] [place], [place] [id number] Care Team Providers Care Switchboard Operator Helper Name Role Phone Juliet Tiradomart EVERETT Unavailable [phone] John Valladares MD Unavailable [phone] Natalie Cadena APRN.ORCHARDIST Unavailable [phone] Yordan Randolph MD Unavailable [phone] Marysol Purvis ASSISTANT THERAPY AIDE Unavailable Unavailable Alex OLIVAS MD, Mason Regan Primary Care Provider [phone] Active Problems Problem Noted Date Diagnosed Date Disorder of carbohydrate metabolism 02/11/2023 Stage 3 chronic kidney disea se, unspecified whether stage 3a or 3b CKD 2022 Cancer of the base of tongue 08/21/2022 Colon cancer 11/19/2012 Current Treatment and Therapy Plans No current plan information found. Past Treatment and Therapy Plans NON-CHEMO 2 Plan Name Start Date Discontinue Date Treatment Medications Discontinue Reason Plan Provider Cycles AMB HYDRATION - NS 1000ML IV - ONCE 10/25/2022 02/08/2023 No medications scheduled. Other John Valladares MD 2 of 2 cycles started ONCOLOGY REGIMEN Plan Name Start Date Discontinue Date Treatment Medications Discontinue Reason Plan Provider Cycles AMB CISPLATIN 40 D1,8,15,22, 29,36,43 - ONCE 09/03/19 23 10/19/2022 CISplatin iv piggyback or iv infusionfosaprepitant (EMEND) Treatment Complete John Valladares MD 1 of 1 cycle started Resolved Problems Problem Noted Date Diagnosed Date Resolved Date Chemotherapy-induced neutropenia 10/19/2022 10/23/2023 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 04/28/2015
--- OUTSIDE RECORDS SUMMARY | 2025-03-12 09:53 | XMS_ITS | Clinical Summary ---
Author Organization [facility] Address [address] [place] [address] Care Team Providers Care Predatory Animal Exterminator Name Role Phone Mason Johnson MD Primary Care Provider [phone] Mason Johnson MD Unavailable Allergies Active Allergy Reactions Criticality Noted Date Comments Statins GI intolerance 06/10/2023 Medications aspirin 81 MG EC tablet Take 81 mg by mouth 1 (one) time each day at the same time Active cholecalciferol (Vitamin D-3) 25 MCG (1000 UT) tablet Take 25 mcg by mouth 1 (one) time each day at the same time Active latanoprost (Xalatan) 0.005 % ophthalmic solution Administer 1 drop into both eyes Daily Active celecoxib (CeleBREX) 200 MG capsuleIndications :Osteoarthritis, unspecified osteoarthritis type, unspecified site Take 1 capsule (200 mg) by mouth in the morning and 1 capsule (200 mg) before bedtime. 60 capsule 6 5 025 Active fenofibrate micronized (Lofibra) 134 MG capsuleIndications :Hyperlipidemia, unspecified hyperlipidemia type Take 1 capsule (134 mg) by mouth Daily 100 capsule 3 5 Active metFORMIN (Glucophage) 500 MG tabletIndications: Type 2 diabetes mellitus without complication, without long-term current use of insulin (HCC) Take 1 tablet (500 mg) by mouth Daily 100 tablet 3 5 025 Active metoprolol succinate XL (Toprol-XL) 25 MG 24 hr tabletIndications: Primary hypertension Take 1 tablet (25 mg) by mouth Daily Do not crush or chew. 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 No aggravating or alleviating factors. Each episode lasts for a few minutes. Normal neck exam. Likely muscular spasms due to poor posture. Patient recommended to use magnesium daily and do daily neck stretching along with possibly change his pillow he sleeps on at night. CAD (coronary artery disease) 06/10/2023 Assessment & Plan (12/16/2023 9:47 AM EDT): Stable. No CP, SOB C/w ASA, Metoprolol On fenofibrate for HLD Assessment & Plan (06/10/2023 5:23 PM EST): Stable. No CP, SOB C/w ASA, Metoprolol On fenofibrate for HLD Encounter for Medicare annual wellness exam 10/2022 Assessment & Plan (06/10/2023 5:32 PM EST): Prior hx of Colon Cancer s/p colectomy. Last Colonoscopy 2022 Flu shot - planning to receive it Pneumonia vaccine - discussed/educated. Refusing Shingles vaccine - never received it. Educated and counseled on it. Facial lesion 01/21/2023 Arteriosclerotic cardiovascular disease 01/16/20 23 Controlled type 2 diabetes m latha with stage 2 chronic kidney disease, without long-term current use of insulin 01/15/2023 Assessment & Plan (12/16/2023 9:48 AM EDT): On metformin - Uses it once daily. Last A1C 11/28 -6.8 Assessment & Plan (11/20/2023 10:52 AM EDT): On metformin Last A1C 05/30 -5.8 He is now using Metformin once daily. Check A1C. Assessment & Plan (06/10/2023 5:25 PM EST): On metformin Last A1C 05/30 -5.8 Decrease metformin to 500 mg once daily. Normal urine albumin 05/30 Last ophthalmology examination 3 months ago. GERD (gastroesophageal reflux disease) 3 History of ND (myocardial infarction) 01/15/2023 HTN (hypertension) 01/15/2023 Assessment & Plan (12/16/2023 9:47 AM EDT): Home BP log reviewed. BP well controlled. On average less than 130/90. Tolerating Anti hypertensive w/o adverse effects. C/w current regimen. No changes. Assessment & Plan (06/10/2023 5:23 PM EST): Home BP log reviewed. BP well controlled. On average less than 130/90. Tolerating Anti hypertensive w/o adverse effects. Denies lightheadedness, dizziness, syncope, presyncope. Patient encouraged to continue with home BP monitoring and call office if he experiences orthostatic symptoms or persistently elevated BP. C/w current regimen. No changes. OJEDA (nonalcoholic steatohepatitis) 01/15/2023 Diastasis recti 01/15/2023 Cancer of base of tongue 12/15/2022 Overview (01/15/2023): Diagnosed 07/31/22. Diffusely p16 positive poorly differentiated SCCA. CT shows >5 cm tongue base mass and multiple morphologically abnormal, but normal sized LN in LT zone 2. Radiation completed 10/22/22. Monthly checks began 11/2022. Metastatic cancer to cervical lymph nodes 2022 Stage 2 chronic kidney disease 2022 Assessment & Plan (12/16/2023 9:46 AM EDT): CKD 2, likely age related. Monitor. Avoid NSAIDS. Chemotherapy-induced neutropenia 10/19/2022 Colon cancer 11/19/2012 Resolved Problems Problem Noted Date Diagnosed Date Resolved Date Type 2 diabetes mellitus wit hout complications 06/10/2023 08/31/2024 Diastasis recti 01/15/2023 01/15/2023 Disorder of prostate 01/15/2023 023 Glucose intolerance 01/15/2023 01/16/20 History of colonic polyps 01/15/2023 History of malignant neoplasm of colon 01/15/2023 01/15/2023 Hypercholesterolemia 01/15/2023 023 Raynaud's syndrome 01/15/2023 Vitamin D deficiency 01/15/2023 023 Overweight 12/15/2022 12/15/2022 Acute pain of right shoulder 12/15/2022 12/15/2022 Basal cell carcinoma (BCC) of face 12/15/2022 12/15/2022 Chemotherapy-induced neutropenia 10/19/2022 01/15/2023 Encounters Date Type Department Care Team Description 03/01/2025 Telephone [facility] [place] [facility] [address] [facility] [address] [place] [address] Mason Johnson MD mri request 02/11/2025 Abstract [facility] [place] [facility] [address] [facility] [address] [place] [address] Mason Johnson MD 02/02/2025 Abstract [facility] [place] [facility] [address] [facility] [address] [place] [address] Mason Johnson MD 01/22/2025 Abstract [facility] [place] [facility] [address] [facility] [address] [place] [address] Mason Johnson MD 01/19/2025 8:00 AM EDT Office Visit [facility] [place] [facility] [address] [facility] [address] [place] [address] Leela Schwartz MD 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) 01/19/2025 Abstract [facility] [place] [facility] [address] [facility] [address] [place] [address] Mason Johnson MD 01/19/2025 Bamboo flowsheet [facility] [place] [facility] [address] [facility] [address] [place] [address] Leela Schwartz MD 01/19/2025 Travel 01/06/2025 9:00 AM EDT Office Visit [facility] [place] [facility] [address] [facility] [address] [place] [address] Mason Johnson MD Left lumbar radiculitis (Primary Dx); Left hip pain 01/06/2025 Bamboo flowsheet [facility] [place] [facility] [address] [facility] [address] [place] [address] Mason Johnson MD 01/06/2025 Travel 12/28/2024 9:30 AM EDT Follow-Up [facility] [place] [facility] [address] [facility] [address] [place] [address] Mason Johnson MD Left hip pain (Primary Dx); Effusion of left knee; Acute pain of left knee 12/28/2024 Clinisync Result Encounter N[facility] External Department Unsolicited Mason Johnson MD 12/28/2024 Abstract [facility] [place] [facility] [address] [facility] [address] [place] [address] Mason Johnson MD 12/28/2024 Travel 12/10/2024 Refill [facility] [place] [facility] [address] [facility] [address] [place] [address] Niki Alvarez LPN Primary hypertension from Last 3 Months Immunizations Immunization Administration Dates Next Due Influenza, High Dose Seasona l, Preservative Free 05/19/2019 Influenza, High-dose Seasona l, Quadrivalent, Preservative Free 07/15/2024 Influenza, Seasonal, Quadriv alent, Adjuvanted 06/20/2023,05/03/2022,06/15/2021 Influenza, injectable, MDCK, preservative free, quadrivalent 06/24/2018 Influenza, seasonal, injectable 04/07/2022 Influenza, seasonal, injecta ble, preservative free 06/21/2015 Novel [id number], preservative-free 06/20 Family History * Patient is adopted Medical History Relation Name Comments No Known Problems Father No Known Problems Mother Relation Name Status Comments Father Mother Social History Tobacco Use Types Packs/Day Years [...] week 06/10/2023 How often do you attend [facility] or mandaeism services? Never 06/10/2023 Do you belong to any clubs o r organizations such as mandaen groups, unions, fraternal or athletic groups, or [...] Recorded Patient Health Questionnaire-2 Score 0 12/28/2024 [facility] - Occupational [...] money to buy more. Never true 06/10/20 Within the past 12 months, t he [...] place to sleep or slept in a correction (including now)? No 06/10/2023 Sex and Gender Information Value Date Recorded Sex Assigned at Not on file Legal Sex Male 7:58 PM EDT Gender Identity Not on file Sexual Orientation Not on file Last Filed Vital Signs Vital Sign Reading Time Taken Comments Blood Pressure 162/53 01/19/2025 8:10 AM EDT Pulse 57 01/19/2025 8:10 AM EDT Temperature 36.4 C (97.5 F) 12/16/2023 9:07 AM EDT Respiratory Rate - - Oxygen Saturation 96% 01/06/2025 9:01 AM EDT Inhaled Oxygen Concentration - - Weight 91.2 kg (201 lb) 01/19/2025 8:10 AM EDT Height 170.2 cm (5' 7 ) 01/19/2025 8:10 AM EDT Body Mass Index 31.48 01/19/2025 8:10 AM EDT Plan of Treatment Upcoming Encounters Date Type Department Care Team (Late st Contact Info) Description 03/26/2025 11:00 AM EDT Office Visit [facility] [place] [facility] [address] [facility] [address] [place] [address] Mason Johnson MD [address] [facility] [address] [place] [address] 04/20/2025 8:00 AM EDT Office Visit [facility] [place] [facility] [address] [facility] [address] [place] [address] Leela Schwartz MD [address] [facility] [address] [place] [address] 05/25/2025 9:20 AM EST Office Visit [facility] [place] [facility] [address] [facility] [address] [place] [address] Matye Stevens, REPAIR ORDER CLERK-RUG SIZER [address] [facility] [address] [place] [address] Health Maintenance Due Date Last Done Comments Pneumococcal Vaccine: 65+ Ye ars (1 of 2 - PCV) 10/31/1962 Diabetes: Urine Protein Screening 02/07/2024 023, 02/06/2023 Diabetes: Retinopathy Screening 09/05/2024 3 Influenza Vaccine (#1) 2025 5, 06/20/2023, 05/03/2022, Additional history exists Diabetes: Hemoglobin A1C 06/10/20252 025, 08/31/2024, 11/20/2023, Additional history exists Medicare Annual Wellness (AWV) 08/31/2025 08/31/2024 , 06/10/2023 Procedures Procedure Name Priority Date/Time Associated Diagnosis Comments XR LUMBAR SPINE 2 OR 3V 12/28/2024 4:31 PM EDT POCT GLYCATED HEMOGLOBIN, TOTAL Routine 12/09/2024 11:30 AM EDT Inflammatory arthritis from Last 3 Months or Most Recently Relevant to Health Maintenance Results * XR LUMBAR SPINE 2 OR 3V (12/28/2024 4:31 PM EDT) Anatomical Region Laterality Modality Radiographic Wendi ging 12/28/2024 4:31 PM EDT Narrative 12/28/2024 4:34 PM EDT [address] [address] XRay Report Signed Patient: ANN ROOT MR#: [id number] : 1945 Acct:[id number] Age/Sex: 79 / M ADM Date: 12/28/24 Loc: [facility] Attending Dr: MASON JOHNSON Ordering Physician: MASON JOHNSON Date of Service: 12/28/24 Procedure(s): XR lumbar spine 2-3V Accession Number(s): [id number] cc: MASON JOHNSON [address] [address] Patient Name: ANN ROOT MRN: [id number] date: 1945 Sex: M Assigned Patient Location: RAD Current Patient Location: RAD Accession/Order Number: [id number] Exam Date: 12/28/2024 16:30 Report Date: 12/28/2024 16:31 At the request of: MASON JOHNSON Procedure: XR lumbar spine 2-3V XR lumbar spine 2-3V 12/28/2024 3:06 PM SIGNS AND SYMPTOMS: Left Hip Pain PROTOCOLS: Frontal and lateral radiographs of the lumbar spine COMPARISON: None FINDINGS: The alignment, development and bony structures are normal. There is no fracture or destructive lesion. There is mild disc height loss throughout, greatest at L4-5. Facet hypertrophy is present at L3-L4, L4-5, and L5-S1. There is anterior osteophyte formation throughout. The sacrum and sacroiliac joints are normal. Atherosclerotic changes are present in the abdominal aorta. XR/XR lumbar spine 2-3V IMPRESSION: No fracture or subluxation. Degenerative changes are present throughout the lumbar spine, greatest at L4-5. Impression dictated by: El Burnett M.D. 12/28/2024 4:31 PM Dictation Location: [place] [address] Electronically authenticated by: [id number] Y Date: 12/28/2024 16:31 Dictated By: El Burnett M.D. Signed By: 12/28/24 1634 DD/ 1631 TD/TT: Painter And Body Mechanic Apprentice: Procedure Note Radiology, Radiologist, MD - 12/28/2024 [place] [address] XRay Report Signed Patient: ANN ROOT DMR#: [id number] : 1945cct:[id number] Age/Sex: 79 / MADM Date: 12/28/24 Loc: [facility] Attending Dr: MASON JOHNSON Ordering Physician: MASON JOHNSON Date of Service: 12/28/24 Procedure(s): XR lumbar spine 2-3V Accession Number(s): [id number] cc: MASON JOHNSON [place] [address] Patient Name: ANN ROOT MRN: [id number] date: 1945 Sex: M Assigned Patient Location: [facility] Current Patient Location: [facility] Accession/Order Number: [id number] Exam Date: 12/28/2024 16:30 Report Date: 12/28/2024 16:31 At the request of: MASON JOHNSON Procedure: XR lumbar spine 2-3V XR lumbar spine 2-3V 12/28/2024 3:06 PM SIGNS AND SYMPTOMS: Left Hip Pain PROTOCOLS: Frontal and lateral radiographs of the lumbar spine COMPARISON: None FINDINGS: The alignment, development and bony structures are normal. There is no fracture or destructive lesion. There is mild disc height loss throughout, greatest at L4-5. Facet hypertrophy is present at L3-L4, L4-5, and L5-S1. There is anterior osteophyte formation throughout. The sacrum and sacroiliac joints are normal. Atherosclerotic changes are present in the abdominal aorta. XR/XR lumbar spine 2-3V IMPRESSION: No fracture or subluxation. Degenerative changes are present throughout the lumbar spine, greatest at L4-5. Impression dictated by: El Burnett M.D. 12/28/2024 4:31 PM Dictation Location: [place] [address] Electronically authenticated by: [id number] Y Date: 6:31 Dictated By: El Burnett M.D. Signed By:12/28/24 1634 DD/ 1631 TD/TT: Painter And Body Mechanic Apprentice: us Mason Johnson MD IMG XR PROCEDURES Final Result * POCT Glycated hemoglobin, total (12/09/2024 11:30 AM EDT) Hemoglobin A1C 7.1 Blood 12/09/2024 11:3 0 AM EDT us Mason Johnson MD POINT OF CARE TEST ENTER/EDIT ORDERABLES Final Result from Last 3 Months or Most Recently Relevant to Health Maintenance Insurance [employer] MEDIC[employer] Care Teams Predatory Animal Exterminator Relationship Specialty Start Date End Date Mason Johnson MD [address] [facility] [address] [place] [address] PCP - General Internal Medicine 05/18/24 Mason Johnson MD [address] [facility] [address] [place] [address] PCP - Medical [facility] 07/08/2407/07
--- OUTSIDE RECORDS SUMMARY | 2025-03-12 09:53 | XMS_ITS | Encounter Summary ---
Author Organization [facility] Address [address] [place] [address] Care Team Providers Care Car Runner Name Role Phone Shaikh YURI [place] Primary Care Provider [phone] Shaikh YURI Drake Primary Care Provider [phone] Unallocated, Tamanna Provider Primary Care Provi vidhya Mason Johnson MD Primary Care Provider [phone] Mason Johnson MD Unavailable Reason for Visit * Reason Comments Med Refill Encounter Details Date Type Department Care Team (Late st Contact Info) Description 09/01/2023 Refill [facility] [address] [place] [address] Shaikh Drake MD [address] [facility] [place] [address] Type 2 diabetes mellitus without complications (HCC) Social History Tobacco Use Types Packs/Day Years [...] any clubs o r organizations such as catholic groups, unions, fraternal or athletic groups, or [...] Recorded Patient Health Questionnaire-2 Score 0 06/10/2023 [facility] - Occupational Stress Questionnaire Answer [...] place to sleep or slept in a detention (including now)? No 06/10/2023 Sex and Gender Information Value Date Recorded Sex Assigned at Not on file Legal Sex Male 7:58 PM EDT Gender Identity Not on file Sexual Orientation Not on file documented as of this encounter Miscellaneous Notes * Telephone Encounter - Shaikh Vidal MD - 09/02/2023 11:47 AM EST Approving, but needs appt for additional refills. documented in this encounter Plan of Treatment Upcoming Encounters Date Type Department Care Team (Late st Contact Info) Description 03/26/2025 11:00 AM EDT Office Visit [facility] [place] [address] [facility] [address] [place] [address] Mason Johnson MD [address] [facility] [address] [place] [address] 04/20/2025 8:00 AM EDT Office Visit [facility] [address] [place] [address] [place] [address] Leela Schwartz MD [address] [place] [address] [place] [address] 05/25/2025 9:20 AM EST Office Visit [facility] [address] [place] [address] Mayte Stevens, REGISTERED DIETICIAN-DIE ATTACHING MACHINE TENDER [address] [place] [address] documented as of this encounter Visit Diagnoses Diagnosis Type 2 diabetes mellitus without complications (HCC) documented in this encounter Additional Health Concerns Assessment Noted Time PHQ-9 Depression Total Score: 0 06/10/20 23 5:03 PM EST documented as of this encounter Care Teams Car Runner Relationship Specialty Start Date End Date Shaikh Drake MD PCP - General Internal Medicine 01/21/23 11/04/23 Shaikh Drake MD [address] [place] [address] PCP - General Internal Medicine 11/05/23 04/12/24 Unallocated, Tamanna Thomas MD [address] [place] [address] PCP - General Family Medicine 04/13/24 05/17/24 Mason Johnson MD [address] [place] [address] [place] [address] PCP - General Internal Medicine 05/18/24 Mason Johnson MD [address] [place] [address] [place] [address] PCP - Medical [place] 07/08/2407/07 documented as of this encounter
--- OUTSIDE RECORDS SUMMARY | 2025-03-12 09:53 | XMS_ITS | Clinical Summary ---
Author Organization [facility] Address [address] [place], [place] [address] Care Team Providers Care Auto Technician Mechanic Name Role Phone Christopher Tiradodavid EVERETT Unavailable [phone] John Valladares MD Unavailable [phone] Natalie Cadena APRN.COUNTER CUTTER Unavailable [phone] Yordan Randolph MD Unavailable [phone] Marysol Purvis Unavailable Unavailable Alex OLIVAS MD, Daniel B Primary Care Provider [phone] Allergies No known active allergies Medications Aspirin 81 mg tab 81 mg every other day. Active fenofibrate (LOFIBRA) 134 mg capsule Take 134 mg by mouth once daily. 03/02/20 16 Active ergocalciferol 50,000 unit capsule (VITAMIN D2, DRISDOL) TAKE 1 CAPSULE BY MOUTH WEEKLY 07/05/20 22 Active metFORMIN (GLUCOPHAGE) 500 mg tablet Take 500 mg by mouth once daily. 06/12/20 22 Active metoprolol succinate ER (TOPROL XL) 25 mg 24 hr tablet Take 25 mg by mouth once daily. 06/12/20 22 Active latanoprost (XALATAN) 0.005 % ophthalmic solution instill 1 (ONE) DROP IN BOTH EYES AT BEDTIME 05/01/20 23 Active cholecalciferol , Vitamin D3, (VITAMIN D3) 1,250 mcg (50,000 unit) cap capsule Take 1 capsule by mouth one time a week. 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 Colon cancer 11/19/2012 Resolved Problems Problem Noted Date Diagnosed Date Resolved Date Chemotherapy-induced neutropenia 10/19/2022 10/23/2023 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 04/28/2015 Immunizations Immunization Administration Dates Next Due COVID-19 original vaccine, f ull dose, monovalent (MODERNA) 09/06/2020,08/09/2020 influenza (HD-IIV3) vaccine, age 65+ yr, high dose, trivalent, PF (FLUZONE HIGH-DOSE) 05/19/2019 influenza (HD-IIV4) vaccine, age 65+ yr, high dose, quadrivalent, PF (FLUZONE HIGH-DOSE) 07/15/2024 influenza (IIV3) vaccine, tr ivalent (AFLURIA, FLULAVAL, FLUVIRIN, FLUZONE) 04/07/2022 influenza (IIV3) vaccine, tr ivalent, PF (AFLURIA, FLUARIX, FLULAVAL, FLUVIRIN, FLUZONE) 06/21/2015 influenza (LAIV) vaccine, na damon, unspecified formulation 05/03/2022 influenza (aIIV4) vaccine, a ge 65+ yr, quadrivalent, PF (FLUAD QUAD) 06/20/2023,05/03/2022,06/15/2021 influenza (ccIIV4) vaccine, age 6+ mo, quadrivalent, PF (FLUCELVAX) 06/24/2018 novel influenza (R9J3-47) vaccine, PF 06/20/2009 Social History Tobacco Use Types Packs/Day Years Used Date Smoking Tobacco: Never Passive Smoke Exposure: Never Smokeless Tobacco: Never Tobacco Cessation:Counseling Given: Not Answered Alcohol Use Standard Drinks/Week Comments Yes 0 (1 standard drink = 0.6 oz pur e alcohol) daily 3 beers PHQ-2 Answer Date Recorded PHQ-2 score 0 11/04/2024 Area Deprivation Index Answer Date Aly rded National Score (1-100), lower number is lower ri sk 59 11/07/2022 State Score (1-10), lower number is lower risk 4 11/07/2022 Data from: https://www.neighborhoodatlas.medicine.[facility]/. Last address used for calculation [address] 11/07/2022 Sex and Gender Information Value Date Recorded Sex Assigned at Not on file Legal Sex Male 10:15 AM EST Gender Identity Not on file Sexual Orientation Not on file Last Filed Vital Signs Vital Sign Reading Time Taken Comments Blood Pressure 155/69 11/04/2024 10:50 AM EDT Pulse 55 11/04/2024 10:50 AM EDT Temperature 36.6 C (97.9 F) 11/04/2024 10:50 AM EDT Respiratory Rate 16 11/04/2024 10:50 AM EDT Oxygen Saturation 97% 11/04/2024 10:50 AM EDT Inhaled Oxygen Concentration - - Weight 91.7 kg (202 lb 2.6 oz) 11/04/2024 10:50 AM EDT Height 166.9 cm (5' 5.71 ) 11/04/2024 10:50 AM E DT Body Mass Index 32.92 11/04/2024 10:50 AM EDT Plan of Treatment Upcoming Encounters Date Type Department Care Team (Latest Contact Info) Description 04/29/2025 9:15 AM EDT Appointment Radiology Pet [facility] [address] [facility] [place] [address] CT CHEST AND NECK 05/06/2025 10:00 AM EDT Visit (SP) Office Hematology/Oncology [address] [place] [address] John Valladares MD [address] [place] [address] 6 MONTH FOLLOW UP AFTER CT SCAN 05/06/2025 10:30 AM EDT Office Visit Radiation Oncology [address] [place] [address] Yordan Randolph MD [address] [place] [address] [place] [address] 3 month follow up Health Maintenance Due Date Last Done Comments Anxiety Screening 10/31/1961 Depression Screening 10/31/1961 DTaP,Tdap,Td Vaccine (1 - Tdap) 10/31/1962 Pneumococcal Vaccine: 50+ (1 of 1 - PCV) 10/31/1993 Shingrix Vaccine (1 of 2) 10/31/1993 RSV Vaccine (1 - 1-dose 75+ series) 10/31/2018 Advance Directive Discussion 07/08/2024 Medicare Advantage Annual [facility] 07/08/2024 Influenza Vaccine (#1) 2025 , 06/20/2023, 05/03/2022, Additional history exists Diabetes Screening 10/29/2027 10/28/2024, 0 08/31/2024, 04/23/2024, Additional history exists Procedures Procedure Name Priority Date/Time Associated Diagnosis Comments COMPREHENSIVE METABOLIC PANEL Routine 10/28/2024 7:53 AM EDT 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 Stage 3 chronic kidney disease, unspecified whether stage 3a or 3b CKD (HCC) from Last 3 Months or Most Recently Relevant to Health Maintenance Results * (ABNORMAL) COMPREHENSIVE METABOLIC PANEL (10/28/2024 7:53 AM EDT) Protein, Total 7.2 6.3 - 8.0 g/dL 10/28/2024 8:34 AM EDT [facility] Albumin 4.6 3.9 - 4.9 g/dL 10/28/2024 8:34 AM EDT [facility] Calcium, Total 9.8 8.5 - 10.2 mg/dL 10/28/2024 8:34 AM EDT [facility] Bilirubin, Total 0.5 0.2 - 1.3 mg/dL 10/28/2024 8:34 AM EDT [facility] Alkaline Phosphatase 61 38 - 113 U/L 10/28/2024 8:34 AM [facility] AST 23 14 - 40 U/L 10/28/2024 8:34 AM [facility] ALT 27 10 - 54 U/L 10/28/2024 8:34 AM [facility] Glucose 235(H) 74 - 99 mg/dL 10/28/2024 8:34 AM [facility] Comment: The [place] Diabetes Association (ADA) provides guidance for cutoff [...] Standards of Medical Care in Diabetes 2016, [place] [employer] Association. Diabetes Care. 2016.39(Suppl 1). BUN 13 9 - 24 mg/dL 10/28/2024 8:34 AM [facility] Creatinine 1.04 0.73 - 1.22 mg/dL 10/28/2024 8:34 AM [facility] Sodium 138 136 - 144 mmol/L 10/28/2024 8:34 AM [facility] Potassium 4.3 3.7 - 5.1 mmol/L 10/28/2024 8:34 AM [facility] Chloride 100 98 - 107 mmol/L 10/28/2024 8:34 AM [facility] CO2 27 22 - 30 mmol/L 10/28/2024 8:34 AM [facility] Anion Gap 11 8 - 15 mmol/L 10/28/2024 8:34 AM [facility] Estimated Glomerular Filtration Rate 73 >=60 mL/min/1. 73m 10/28/2024 8:34 AM EDT [facility] Comment:Estimated Glomerular Filtration Rate (eGFR) is calculated using the 2020 CKD-EPI creatinine equation. This equation utilizes serum creatinine, sex, and age as parameters. The creatinine assay has traceable calibration to isotope dilution- mass spectrometry. Refer to KDIGO guidelines for clinical interpretation. In patients with unstable renal function, e.g. those with acute kidney injury, the eGFR may not accurately reflect actual GFR. Blood BLOOD SPECIMEN / Unknown Venipuncture / Unknown 10/28/2024 7:53 AM EDT 10/28/2024 8:02 AM EDT us John Valladares MD LABORATORY Final Result [facility] [address] [place] [address] from Last 3 Months or Most Recently Relevant to Health Maintenance Insurance [facility]ADPowered[facility]yticsKING[facility]ERO Care Teams Auto Technician Mechanic Relationship Specialty Start Date End Date Mason Johnson II, MD [address] [facility] [address] [place] [address] PCP - General Internal Medicine 05/06/[address] [facility] [place] [address] Registered Dietitian Nutrition 08/20/22 John Valladares MD [address] [place] [address] Physician Hematology/Oncology 08/21/22 Natalie Cadena APRN.[facility] [address] [place] [address] Nurse Practitioner Hematology/Oncology 08/21/22 Yordan Randolph MD [address] [place] [address] Physician Radiation Oncology 08/21/22 Marysol Purvis LSW Trimmer Hand 09/07/22
--- OUTSIDE RECORDS SUMMARY | 2025-03-12 09:53 | XMS_ITS | Encounter Summary ---
Author Organization [facility] Address [address] [place] [address] Care Team Providers Care Investigator Operator Name Role Phone Shaikh YURI Drake Primary Care Provider [phone] Shaikh YURI Drake Primary Care Provider [phone] Unallocated, Teresas Provider Primary Care Provi vidhya Mason Johnson MD Primary Care Provider [phone] Mason Johnson MD Unavailable [phone] Encounter Details Date Type Department Care Team (Late st Contact Info) Description 07/03/2023 Abstract [facility] [address] [place] [phone] Shaikh Drake MD [address] [place] [address] Social History Tobacco Use Types Packs/Day Years [...] often do you attend chur ch or mandaeism services? Never 06/10/2023 Do you belong to any clubs o r organizations such as advent groups, unions, fraternal or athletic groups, or school groups? No 06/10/2023 How often do you attend meet ings of the clubs or organizations you belong to? Never 06/10/2023 Are you , , di vorced, , never , or living with a partner? 06/10/2023 AUDIT-C Answer Date Recorded Q1: How often do you have a drink containing alcohol? 4 or more times a week 06/23/2023 Q2: How many drinks containi ng alcohol do you have on a typical day when you are drinking? 3 or 4 Q3: How often do you have si x or more drinks on one occasion? Never 06/23/2023 Overall Financial Resource Strain (CARDIA) Answe r Date Recorded How hard is it for you to pa y for the very basics like food, housing, medical care, and heating? Very hard 06/10/2023 PHQ-2 Answer Date Recorded Patient Health Questionnaire-2 Score 0 06/10/2023 [facility] of Occupat ional Health - Occupational Stress [...] place to sleep or slept in a residential (including now)? No 06/10/2023 Sex and Gender Information Value Date Recorded Sex Assigned at Not on file Legal Sex Male 7:58 PM EDT Gender Identity Not on file Sexual Orientation Not on file documented as of this encounter Plan of Treatment Upcoming Encounters Date Type Department Care Team (Late st Contact Info) Description 03/26/2025 11:00 AM EDT Office [facility] [place] [facility] [address] [facility] [address] [place] [phone] Mason Johnson MD [address] [facility] 110 [place] [address] 04/20/2025 8:00 AM EDT Office Visit [facility] [place] [facility] [address] [facility] [address] [place] [phone] Leela Schwartz MD [address] [facility] [address] [place] [address] 05/25/2025 9:20 AM EST Office Visit [facility] [address] [place] [phone] Mayte Stevens APRN-FINE JEWELRY SALES ASSOCIATE [address] [place] [address] documented as of this encounter Visit Diagnoses Not on filedocumented in this encounter Additional Health Concerns Assessment Noted Time PHQ-9 Depression Total Score: 0 06/10/20 23 5:03 PM EST documented as of this encounter Care Teams Investigator Operator Relationship Specialty Start Date End Date Shaikh Drake MD PCP - General Internal Medicine 01/21/23 11/04/23 Shaikh Drake MD [address] [place] [place] [address] PCP - General Internal Medicine 11/05/23 04/12/24 Unallocated, Tamanna Thomas MD [address] [place] [address] PCP - General Family Medicine 04/13/24 05/17/24 Mason Johnson MD [address] [facility] [address] [place] [address] PCP - General Internal Medicine 05/18/24 Mason Johnson MD [address] [place] [address] PCP - Medical [place] 07/08/2407/07 documented as of this encounter
--- OUTSIDE RECORDS SUMMARY | 2025-03-12 09:53 | XMS_ITS | Encounter Summary ---
Author Organization [facility] Address [address] [place] [address] Care Team Providers Care Grails Web Application Developer Name Role Phone Mason Johnson MD Primary Care Provider Mason Johnson MD Unavailable [phone] Encounter Details Date Type Department Care Team (Late st Contact Info) Description 01/22/2025 Abstract [facility] [place] [facility] 112 [facility] 110 [place] [address] Mason Johnson MD 112 [facility] 110 [place], [place] [phone] Social History Tobacco Use Types Packs/Day Years [...] often do you attend chur ch or mu-ism services? Never 06/10/2023 Do you belong to any clubs o r organizations such as yazidi groups, unions, fraternal or athletic groups, or [...] Recorded Patient Health Questionnaire-2 Score 0 12/28/2024 [facility] of Occupat ional Health - Occupational Stress [...] [facility] [place] [facility] [address] [facility] [address] [place] [phone] Mason Johnson MD [address] [facility] [address] [place] [address] 04/20/2025 8:00 AM EDT Office Visit [facility] [place] [facility] [address] [facility] [address] [place] [address] Leela Schwartz MD [address] [place] [address] 05/25/2025 9:20 AM EST Office Visit [facility] [place] [facility] [address] [place] [address] Mayte Stevens APRN-TILE PROFESSIONAL [address] [place] [address] documented as of this encounter Visit Diagnoses Not on filedocumented in this encounter Additional Health Concerns Assessment Noted Time PHQ-9 Depression Total Score: 0 06/10/20 23 5:03 PM EST documented as of this encounter Care Teams Grails Web Application Developer Relationship Specialty Start Date End Date Mason Johnson MD [address] [facility] 110 [place] [address] PCP - General Internal Medicine 05/18/24 Mason Johnson MD [address] [facility] [address] [place] [address] PCP - Medical [place] 07/08/2407/07 documented as of this encounter
--- OUTSIDE RECORDS SUMMARY | 2025-03-12 09:53 | XMS_ITS | Encounter Summary ---
Author Organization [facility] Address [address] [place] [address] Care Team Providers Care Corporate Travel Manager Name Role Phone [place] MD Primary Care Provider [phone] Unavailable [phone] John Valladares MD Unavailable [phone] Natalie Cadena LINOLEUM LAYER.BROOM WORKER Unavailable [phone] Cecilia Bob RN Unavailable [phone] Yordan Randolph MD Unavailable [phone] Marysol Purvis Unavailable Unavailable Shaikh YURI Drake Primary Care Provider [phone] Alex OLIVAS MD, Mason Regan Primary Care Provider [phone] Source Comments In the event this information is protected by the Federal Confidentiality of Alcohol and Drug AbusePatient Records regulations: The Federal rules restrict any use of the information to criminally investigate or prosecute any alcohol or drug abuse patient.[facility] Encounter Details Date Type Department Care Team (Latest Contact Info) Description 08/08/2022 H&P External-NonCCF Provider, External, [place] Do not enter address information under generic External Provider. Social History Tobacco Use Types Packs/Day Years Used Date Smoking Tobacco: Never Smokeless Tobacco: Never Alcohol Use Standard Drinks/Week Comments No 0 (1 standard drink = 0.6 oz pur e alcohol) Area Deprivation Index Answer Date Aly rded National Score (1-100), lower number is lower ri sk Not on file 06/15/2020 State Score (1-10), lower number is lower risk N ot on file 06/15/2020 Data from: https://www.neighborhoodatlas.medicine.[facility]/. Last address used for calculation Not on file 06/15/2020 Sex and Gender Information Value Date Recorded Sex Assigned at Not on file Legal Sex Male 10:15 AM EST Gender Identity Not on file Sexual Orientation Not on file documented as of this encounter Functional Status * Are you deaf or do you have serious difficulty hearing? Answer Date of Assessment Author No 04/29/2014 11:20 AM Cotton * Are you blind or do you have serious difficulty seeing, even when wearing glasses? Answer Date of Assessment Author No 04/29/2014 11:20 AM Cotton * Do you have serious difficulty walking or climbing stairs? Answer Date of Assessment Author No 04/29/2014 11:20 AM Cotton * Do you have difficulty dressing or bathing? Answer Date of Assessment Author No 04/29/2014 11:20 AM Cotton * Because of a physical, mental, or emotional condition, do you have difficulty doing errands alone such as visiting a doctor's office or shopping? Answer Date of Assessment Author No 04/29/2014 11:20 AM Cotton documented as of this encounter Mental Status * Because of a physical, mental, or emotional condition, do you have serious difficulty concentrating, remembering, or making decisions? Answer Entry Date Author No 04/29/2014 11:20 AM Cotton documented in this encounter Plan of Treatment Upcoming Encounters Date Type Department Care Team (Latest Contact Info) Description 04/29/2025 9:15 AM EDT Appointment Radiology Pet CT [address] [facility] [address] CT CHEST AND NECK 05/06/2025 10:00 AM EDT Visit (SP) Office Hematology/Oncology [address] [facility] [address] John Valladares MD [address] [facility] [place] [address] 6 MONTH FOLLOW UP AFTER CT SCAN 05/06/2025 10:30 AM EDT Office Visit Radiation Oncology [address] [place] [address] Yordan Randolph MD [address] [place] [address] 3 month follow up documented as of this encounter Visit Diagnoses Not on filedocumented in this encounter Care Teams Corporate Travel Manager Relationship Specialty Start Date End Date [place] MD [address] [place] [address] PCP - General Family Medicine 11/16/11 02/05/23 Shaikh Drake MD [address] [place] [address] PCP - General Primary Care 02/06/23 05/05/24 Mason Johnson II, MD 112 [facility] 110 [place] [address] PCP - General Internal Medicine 05/06/[address] [place] [address] [place] [address] Registered Dietitian Nutrition 08/20/22 John Valladares MD [address] [place] [address] [place] [address] Physician Hematology/Oncology 08/21/22 Natalie Cadena APRN.BROOM WORKER [address] [place] [address] [place] [address] Nurse Practitioner Hematology/Oncology 08/21/22 Cecilia Bob, RN [address] [facility] [place] [address] Specialty [place] Hematology/Oncology 08/21/22 12/17/24 Yordan Randolph MD [address] [facility] [place] [address] Physician Radiation Oncology 08/21/22 Marysol Purvis LSW Heat Treater Apprentice 09/07/22 documented as of this encounter
--- OUTSIDE RECORDS SUMMARY | 2025-03-12 09:53 | XMS_ITS | Encounter Summary ---
Author Organization [facility] Address [address] [place] [address] Care Team Providers Care Recreation Attendant Name Role Phone Mason Johnson MD Primary Care Provider [phone] Mason Johnson MD Unavailable [phone] Encounter Details Date Type Department Care Team (Late st Contact Info) Description 02/11/2025 Abstract [facility] [place] [facility] 112 [facility] 110 [place] [address] Mason Johnson MD 112 [facility] 110 [place], [place] [phone] Social History Tobacco Use Types Packs/Day Years [...] often do you attend chur ch or adventism services? Never 06/10/2023 Do you belong to [...] Recorded Patient Health Questionnaire-2 Score 0 12/28/2024 [facility] of Occupat ional Health - [...] to sleep or slept in a senior living (including now)? No 06/10/2023 Sex and Gender [...] [facility] [place] [facility] [address] [facility] [address] [place] [phone] Mason Johnson MD [address] [facility] 110 [place] [address] 04/20/2025 8:00 AM EDT Office Visit [facility] [place] [facility] [address] [facility] [address] [place] [address] Leela Schwartz MD [address] [place] [address] 05/25/2025 9:20 AM EST Office Visit [facility] [place] [facility] [address] [place] [address] Mayte Stevens APRN-UNIT SUPPORT REPRESENTATIVE [address] [place] [address] documented as of this encounter Visit Diagnoses Not on filedocumented in this encounter Additional Health Concerns Assessment Noted Time PHQ-9 Depression Total Score: 0 06/10/20 23 5:03 PM EST documented as of this encounter Care Teams Recreation Attendant Relationship Specialty Start Date End Date Mason Johnson MD [address] [facility] 110 [place] [address] PCP - General Internal Medicine 05/18/24 Mason Johnson MD [address] [facility] 110 [place] [address] PCP - Medical [place] 07/08/2407/07 documented as of this encounter
--- NOTE | 2025-03-12 09:54 | MR_ITS ---
The [address] [address] Patient Name: ANN RIVERA MRN: [id number] date: 1945 Sex: M Assigned Patient Location: MRI Current Patient Location: MRI Accession/Order Number: [id number] Exam Date: 03/12/2025 10:00 Report Date: 03/12/2025 15:44 At the request of: ORA STARKS Procedure: MR hip LT wo con MR hip LT wo con 03/12/2025 11:18 AM SIGNS AND SYMPTOMS: Primary Osteoarthritis Left Hip, Left Hip Pain PROTOCOL: Multiplanar multisequence MR images of the left hip without contrast COMPARISON: 10/13/2024 FINDINGS: Alignment: Normal Femoroacetabular impingement anatomy: None. Dysplasia: None. Fluid: There is a small joint effusion.. Labrum: Incompletely evaluated. The labrum is irregular in signal intensity(l suspicious for a chronic degenerative process.. Cartilage: Femoral: There is full thickness chondromalacia which is most notable along the superior articular surface. There is underlying subchondral cystic change and edema. Acetabular: There is full thickness chondromalacia in the roof of the acetabulum anteriorly with underlying subchondral cystic change and edema. Capsule/ligaments: Normal. Muscles/tendons/entheses: Flexors: Normal. Extensors: Normal. Abductors: Normal. Adductors: Normal. Rotators: Normal. Hamstrings: Edema is noted at the hamstrings origins suggesting tendinopathy. Bones (other than subarticular marrow): Normal. Vessels: Normal. Nerves: Visualized left sciatic and femoral nerves appear normal. Soft tissues: Normal. Viscera: Visualized pelvic structures appear normal. No lymphadenopathy by size criteria. No free fluid in the pelvis. 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 Irregular signal intensity is noted along the superior glenoid labrum presumably relating to a chronic degenerative process Edema is noted at the hamstrings origins suggesting tendinopathy. Impression dictated by: El Burnett M.D. 03/12/2025 3:44 PM Dictation Location: [place] [address] Electronically authenticated by: [id number] Date: 03/12/2025 15:44
--- OUTSIDE RECORDS SUMMARY | 2025-03-12 09:59 | XMS_ITS | CCD ---
Author Organization [facility] Care Team Providers Care Clinical Dental Technician Name Role Phone MANNIE NELSON Primary Care [...] Mannie De La Cruz Primary Care Provider [phone] Louise EVERETT, Dee Unavailable Jacquelyn WELCH, John Unavailable [phone] Surinder WAGNERN.INJECTION MOLDING MACHINE SETTER, Natalie Unavailable Paulino HORNER, Rafael Unavailable [phone] Yordan Feliz MD Unavailable Marysol Martinez Unavailable Unavailable Candida RD, Dee Unavailable Vidal WELCH, [facility] Primary Care Provider Candida RD, Dee Unavailable Paulino RN, Rafael Unavailable Vidal WELCH, [facility] Primary Care Provider Mannie Nelson MD Primary Care Provider [phone] Unallocatkira WELCH, Noms Provider Primary Care Provi vidhya Alex OLIVAS MD, Daniel B Primary Care Provider Mason Johnson MD Primary Care Provider Vidal WELCH, [facility] Primary Care Provider Mason Johnson MD Unavailable [phone] ABHYANKAR, JOHN Attending Unavailable ABHYANKAR, JOHN Referring Unavailable JOHNSON II, MASON B Primary Care Unavailable Yordan FELIZ Attending Unavailable JOHNSON II, MASON B Primary Care Unavailable ABHYANKAR, JOHN Referring Unavailable FAWWADKELYBOJORQUEZ Primary Care Unavailable JOHNSON II, MASON B Primary Care Unavailable Yordan FELIZ Attending Unavailable Yordan FELIZ Referring Unavailable JOHNSON II, MASON B Primary Care Unavailable ABHYANKAR, JOHN Attending Unavailable ABHYANKAR, JOHN Referring Unavailable JOHNSON II, MASON B Primary Care Unavailable JOHNSON II, MASON B Primary Care Unavailable ABHYANKAR, JOHN Referring Unavailable JOHNSON, MASON B Attending Unavailable BARRY STEVENS Attending Unavailable JOHNSON, MASON B Referring Unavailable JOHNSON, MASON B Attending Unavailable TIMMIS, SERENE H Attending Unavailable JOHNSON, MASON B Attending Unavailable JOHNSON, MASON B Attending Unavailable TIMMIS, SERENE H Attending Unavailable TIMMIS, SERENE H Attending Unavailable TIMMIS, SERENE H Attending Unavailable JOHNSON, MASON B Attending Unavailable TIMMIS, SERENE H Attending Unavailable JOHNSON, MASON B Attending Unavailable MASON JOHNSON Attending Unavailable SERENE MORALES Attending Unavailable BARRY STEVENS Attending Unavailable SERENE MORALES Attending Unavailable SERENE MORALES Attending Unavailable Allergies Allergy Classification Reported Allergen(s) Allergy Type Date of Onset Reaction(s) Facility (1 source) No Known Medication Allergies; Translations: [No Known Medication Allergies] Propensity to adverse reactions (disorder) [facility] Repository (20 sources) HMG-CoA reductase inhibitor Propensity [...] (5 sources) Cephalosporin Antibacterial Start: 023 End: take 1 tablet by mouth twice daily cefUROXime (CEFTIN) 500 mg tablet Take 1 tablet by mouth twice daily for 10 days. 20 tablet 0 10/01/2022 10/11/2022 Active Comment on above: Take 1 tablet by mk twice daily for 10 days. celecoxib 200 mg oral capsule (20 sources) Nonsteroidal Anti-inflammatory Drug Start: 025 End: 025 take 1 capsule by mouth in the morning celecoxib (CeleBREX) 200 MG capsule Indications: Osteoarthritis, unspecified osteoarthritis type, unspecified site Take 1 capsule (200 mg) by mouth in the morning and 1 capsule (200 mg) before bedtime. 60 capsule 6 11/11/2024 06/09/2025 Active cholecalciferol 1.25 mg oral capsule (20 sources) Vitamin D Start: 024 take 1 [...] each day at the same time Active Comment on above: Take 1 capsule by [facility] one time a week. ergocalciferol 1.25 mg oral capsule (20 sources) Provitamin D2 Compound Start: 04-18-20 take 1 capsule by mouth every week ergocalciferol 50,000 unit capsule (VITAMIN D2, DRISDOL) TAKE 1 CAPSULE BY MOUTH WEEKLY 07/05/2022 Active Comment on above: TAKE 1 CAPSULE BY [facility] WEEKLY fenofibrate 134 mg oral capsule (20 sources) Peroxisome Proliferator Receptor alpha Agonist Start: 12-05-19 take 1 capsule by mouth once daily fenofibrate micronized (Lofibra) 134 MG capsule Indications: Hyperlipidemia, unspecified hyperlipidemia type Take 1 capsule (134 mg) by mouth Daily 100 capsule 3 12/04/2024 Active Start: 04-07-2024 Fenofibrate Mi cronized Active MG PO April 07, 2024 12:00am Start: 03-02-2016 take 1 capsule by [facility] once daily fenofibrate micronized (Lofibra) 134 MG capsule Indications: Hyperlipidemia, unspecified hyperlipidemia type (CMS/HCC) Take 1 capsule (134 mg) by mouth Daily 90 capsule 1 12/16/2023 Active Comment on above: Take 134 mg by mouth once daily. 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 [...] CT contrast administration guidelines link. 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 [...] CT contrast administration guidelines link. 1 each 11/04/2024 11/04/2024 Active Start: 11-04-2024 iv contrast (w ill be provided with radiology test) Indications: Cancer [...] CT contrast administration guidelines link. 1 each 11/04/2024 Active Start: 05-06-2024 End: 05-06-2024 inject 1 dose [...] guidelines link. latanoprost 0.05 mg/ml ophthalmic solution (20 sources) Prostaglandin Analog Start: 05-01-20 take 1 [...] mg oral tablet (20 sources) Biguanide Start: 06-12-2022 End: 06-02-2025 take 1 tablet by mouth once daily metFORMIN (Glucophage) 500 MG tablet Indications: Type 2 diabetes mellitus without complication, without long-term current use of insulin (HCC) Take 1 tablet (500 mg) by mouth Daily 100 tablet 3 12/04/2024 06/02/2025 Active Start: 06-12-2022 take 2 tablets by [...] Take 500 mg by mouth once daily. methylPREDNISolone (5 sources) Corticosteroid Start: 12-09-2024 End: 12-28-2024 methylPREDNISolone (Medrol Dospak) 4 MG tablets Indications: Inflammatory arthritis Follow schedule on package instructions 21 tablet 12/09/2024 12/28/2024 Discontinued (Therapy completed) Start: 12-09-2024 End: 12-16-2024 methylPREDNISolone (Medrol D ospak) 4 MG tablets Indications: Inflammatory arthritis Follow schedule on package instructions 21 tablet 12/09/2024 12/16/2024 Active 24 hr metoprolol succinate 25 mg extended release oral tablet (20 sources) beta-Adrenergic Jose Start: 12-10-2024 take 1 tablet by mouth once daily metoprolol succinate XL (Toprol-XL) 25 MG 24 hr tablet Indications: Primary hypertension Take 1 tablet (25 mg) by mouth Daily Do not crush or chew. 90 tablet 3 12/10/2024 Active Start: 04-07-2024 Metoprolol Suc cinate Active MG PO April 07, 2024 12:00am [...] mk th twice daily for 14 days. Magnesium (17 sources) End: 05-19-2024 Magnesium 400 [...] mk th every 6 hours as needed. tiZANidine 4 mg oral tablet (8 sources) Central alpha-2 Adrenergic Agonist Start: 08-31-2024 End: 10-12-2024 take 1 tablet by mouth in the morning tiZANidine (Zanaflex) 4 MG tablet Indications: Torticollis Take 1 tablet (4 mg) by mouth in the morning and 1 tablet (4 mg) before bedtime. 60 tablet 3 08/31/2024 10/12/2024 Discontinued (Side effects) Problems Active Problems Problem Classification Problem Date [...] or 3b CKD (HCC)] Onset: 3 Chronic Chronic kidney disease (1 source) Chronic kidney disease; Translations: [Stage 3 chronic kidney disease, unspecified whether stage 3a or 3b CKD (HCC)] Onset: 3 Coronary atherosclerosis and other heart disease (20 sources) History of myocardial infarction; Translations: [Atherosclerotic heart disease of [place] coronary artery without angina pectoris] Onset: 3 [...] [Essential (primary) hypertension] Onset: 3 04-18-2020 Chronic Genitourinary symptoms and ill-defined conditions (2 sources) Genuine stress incontinence; Translations: [Stress incontinence (female) (male)] 10-14-2024 Chronic Hepatitis (20 sources) Nonalcoholic steatohepatitis; Translations: [Nonalcoholic steatohepatitis (OJEDA)] Onset: 3 06-13-2022 Chronic Immunizations and screening for infectious disease (1 source) Vaccination needed; Translations: [Encounter for immunization] 07-15-2024 Episodic Osteoarthritis (20 sources) Osteoarthritis; Translations: [Unspecified osteoarthritis, unspecified site] Onset: 5 10-12-2024 Chronic Other aftercare (1 source) termite helper (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 of anticoagulants; Translations: [AUTOMATION APPLICATION ENGINEER CURRNT USE ANTICOAGULANTS] Onset: 3 Episodic Other aftercare (1 source) group home (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 of oral hypoglycemic drugs; Translations: [[facility] USE ORAL HYPOGLYCEMIC DX] Onset: 3 Episodic Other aftercare (1 source) termite helper (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 of aspirin; Translations: [[facility] CURRENT USE OF ASPIRIN] Onset: 3 Episodic [...] field] 02-06-2023 Episodic Other lower respiratory disease (9 sources) Multiple nodules of lung; Translations: [Other nonspecific abnormal finding of lung field] 02-06-2023 Episodic Other lower respiratory disease (1 source) Nodule of lung; Translations: [Solitary pulmonary nodule] 02-11-2023 Episodic Other non-traumatic joint disorders (10 sources) Hip pain; Translations: [Pain in left hip] 10-12-2024 Episodic Other non-traumatic joint disorders (4 sources) Effusion of joint of left knee; Translations: [Effusion, left knee] 12-09-2024 Episodic Other non-traumatic joint disorders (4 sources) Pain in left knee; Translations: [Pain in joint, lower leg] 12-09-2024 Episodic Other nutritional; endocrine; and metabolic disorders [...] (2 sources) Arteriosclerotic vascular disease 04-18-2020 Chronic Rheumatoid arthritis and related disease (2 sources) Rheumatoid arthritis; Translations: [Rheumatoid arthritis, unspecified] 10-26-2024 Chronic Secondary malignancies (20 sources) Secondary malignant [...] Spondylosis; intervertebral disc disorders; other back problems (20 sources) Cervical spondylosis without myelopathy; Translations: [Spondylosis without myelopathy or radiculopathy, cervical region] Onset: 5 10-26-2024 Chronic Spondylosis; intervertebral disc disorders; other back problems (10 sources) Torticollis; Translations: [Torticollis] 08-31-2024 Episodic Thyroid disorders (7 sources) Iodine-deficiency related diffuse (endemic) goiter; Translations: [Acquired hypothyroidism] Onset: 2 Chronic Thyroid disorders (2 sources) Disorder of thyroid gland; Translations: [Other specified disorders of thyroid] Onset: 5 05-08-2023 Episodic Unclassified (1 source) CONTACT W/AND (SUSP) EXPOS COVID-19; Translations: [CONTACT W/AND (SUSP) EXPOS COVID-19] Onset: 3 Past or Other Problems Problem Classification Problem Date Documented Date Episodic/Chronic Cancer of colon (20 sources) History of malignant neoplasm of colon; Translations: [Personal history of other malignant neoplasm of large intestine] Onset: 06-13-2022 Resolved: 01-15-2023 Episodic Joint disorders and dislocations; trauma-related (20 sources) Dislocation of acromioclavicular joint; Translations: [Unspecified dislocation of right acromioclavicular joint, initial encounter] Onset: 10-16-2024 10-16-2024 Episodic Mood disorders (20 sources) Mood disorders [...] 11-20-2023 11-20-2023 Episodic Other lower respiratory disease (1 source) Other nonspecific abnormal finding of lung field; Translations: [Lung nodules] Onset: 04-23-2024 Episodic Other male genital disorders (20 sources) [...] Test Name Value Interpretation Reference Range Facility XR LUMBAR SPINE 2 [place] [address] XRay Report Signed Patient: MANISH ROOT MR#: [id number] : 1945 Acct:[id number] Age/Sex: 79 / M ADM Date: 12/28/24 Loc: RAD Attending Dr: MASON JOHNSON Ordering Physician: MASON JOHNSON Date of Service: 12/28/24 Procedure(s): XR lumbar spine 2-3V Accession Number(s): [id number] cc: MASON JOHNSON [place] [id number] Patient Name: MANISH ROOT MRN: [id number] date: 1945 Sex: M Assigned Patient Location: [facility] Current Patient Location: [facility] Accession/Order Number: [id number] Exam Date: 12/28/2024 16:30 Report Date: 12/28/2024 [...] Burnett M.D. 12/28/2024 4:31 PM Dictation Location: [place] [address] Electronically authenticated by: [id number] Y Date: 12/28/2024 16:31 Dictated By: El Burnett M.D. Signed By: 12/28/24 1634 DD/ 1631 TD/TT: Raveler: [facility] Radiology, Radiologist, MD - 12/28/2024 [place] [address] XRay Report Signed Patient: MANISH ROOT MR#: [id number] : 1945 Acct:[id number] Age/Sex: 79 / M ADM Date: 12/28/24 Loc: [facility] Attending Dr: MASON JOHNSON Ordering Physician: MASON JOHNSON Date of Service: 12/28/24 Procedure(s): XR lumbar spine 2-3V Accession Number(s): [id number] cc: MASON JOHNSON [address] [address] Patient Name: MANISH ROOT MRN: [facility]:[id number] date: 1945 Sex: M Assigned Patient Location: [facility] Current Patient Location: [facility] Accession/Order Number: [id number] Exam Date: 12/28/2024 16:30 Report Date: 12/28/2024 [...] Burnett M.D. 12/28/2024 4:31 PM Dictation Location: [place] [address] Electronically authenticated by: [id number] Y Date: 12/28/2024 16:31 Dictated By: El Burnett M.D. Signed By: 12/28/24 1634 DD/ 1631 TD/TT: Raveler: [facility] Rad[facility] Study observation (narrative) [facility] [email or web address] XR LUMBAR SPINE 2 OR 3VOrder ed By: Radiologist Radiology on 12-28-2024 [employer] Work Phone: RAFAEL SCREEN, IFA, W/REFL TITE R AND PATTERNon 12-15-2024 RAFAEL SCREEN, IFA Positive Abnormal NEGATIVE [facility] Comment on above: Result Comment: RAFAEL IFA is a first line screen for detecting the presence of up to approximately 150 autoantibodies in various autoimmune diseases. A positive RAFAEL IFA result is suggestive of autoimmune disease and reflexes to titer and pattern. Further laboratory testing may be considered if clinically indicated. For additional information, please refer to http://education.Lee Silber/faq/XCW028 (This link is being provided for informational/ educational purposes only.) Performed By: #### 9 05, %28772, 809, 249 #### [facility] [address], [address] [place] [id number] Pin Worker: Maged Olson MD #### [id number] #### [facility] [address] [facility] [place] [address] Pin Worker: Yassine Bonilla M.D.,PhD ANTINUCLEAR ANTIBODIES TITE R AND PATTERNon 12-15-2024 RAFAEL PATTERN Cytoplasmic, Polar/Golgi-like Abnormal [facility] Comment on above: Result Comment: Disc ontinuous speckled or granular perinuclear ribbon- like staining with polar distribution in the cytoplasm (e.g., anti-giantin, [id number]). Pattern is rare in Sjogren's syndrome, systemic lupus erythematosus (SLE), rheumatoid arthritis, mixed connective disease, granulomatosis with polyangiitis (GPA), idiopathic cerebellar ataxia, paraneoplastic cerebellar degeneration, and viral infections. AC-22: Polar/Golgi-like International Consensus on RAFAEL Patterns (https://doi.org/10.1515/lqfk-6159-5286) Performed By: #### 9 05, %76210, 809, 249 #### [facility] [address], [address] [place] [address] Pin Worker: Maged Olson MD #### [id number] #### [facility]/[address] [place], [place] Pin Worker: Yassine Bonilla M.D.,PhD RAFAEL TITER 1:40 High [facility] Comment on above: Result Comment: A lo w level RAFAEL titer may be present in pre-clinical autoimmune diseases and normal individuals. Reference Range <1:40 Negative 1:40-1:80 Low Antibody Level >1:80 Elevated Antibody Level Performed By: #### 9 05, %32590, 809, 249 #### [facility] [address], [address] [place] [address] Pin Worker: Maged Olson MD #### [id number] #### [facility]/[place] [address] [facility] [place], [place] Pin Worker: Yassine Bonilla M.D.,PhD C-REACTIVE PROTEINon 025 CRP [Mass/Vol] 9.8 mg/L High <8.0 [facility] Comment on above: Performed By: #### 9 05, %65661, 809, 249 #### [facility] [address], [address] [place] [address] Pin Worker: Maged Olson MD #### [id number] #### [facility]/[place] [address] [facility] [place] Pin Worker: Yassine Bonilla M.D.,PhD RHEUMATOID ARTHRITIS DIAGNOS TIC PANEL 3on 12-15-2024 CYCLIC CITRULLINATED PEPTIDE (CCP) AB (IGG) <16 Normal <20 [facility] Comment on above: Order Comment: FASTI NG:YES FASTING: YES Result Comment: Negative: <20 Weak Positive: 20 - 39 Moderate Positive: 40 - 59 Strong Positive: >59 Performed By: #### 9 05, %86317, 809, 249 #### [facility] [address], [address] [place] [address] Pin Worker: Maged Olson MD #### [id number] #### [facility]/[address] [place], [place] Pin Worker: Yassine Bonilla M.D.,PhD RHEUMATOID FACTOR (IGA) <5 Normal <=6 [facility] Comment on above: Order Comment: FASTI NG:YES FASTING: YES Performed By: #### 9 05, %34438, 809, 249 #### [facility] [address], [address] [place] [address] Pin Worker: Maged Olson MD #### #### [facility]/[address] [place], [place] Pin Worker: Yassine Bonilla M.D.,PhD RHEUMATOID FACTOR (IGG) <5 Normal <=6 [facility] Comment on above: Order Comment: FASTI NG:YES FASTING: YES Performed By: #### 9 05, %68743, 809, 249 #### [facility] [address], [address] [place] [address] Pin Worker: Maged Olson MD #### #### [facility]/[place] [address] [facility] [place], [place] Pin Worker: Yassine Bonilla M.D.,PhD RHEUMATOID FACTOR (IGM) <5 Normal <=6 [facility] Comment on above: Order Comment: FASTI NG:YES FASTING: YES Performed By: #### 9 05, %95978, 809, 249 #### [facility] of [address], [address] [place], [place] [address] Pin Worker: Maged Olson MD ### #### [facility]/[place] [address] [facility] [place], [place] Pin Worker: Yassine Bonilla M.D.,PhD SJOGREN'S ANTIBODY (SS-A) <1.0 Normal [facility] Comment on above: Order Comment: FASTI NG:YES FASTING: YES Result Comment: Reference Range: < 1.0 NEG AI Performed By: #### 9 05, %47561, 809, 249 #### [facility] of [address], [address] [place] [address] Pin Worker: Maged Olson MD #### #### [facility]/[place] [address] [facility] [place], [place] Pin Worker: Yassine Bonilla M.D.,PhD SJOGREN'S ANTIBODY (SS-B) <1.0 Normal [facility] Comment on above: Order Comment: FASTI NG:YES FASTING: YES Result Comment: Reference Range: < 1.0 NEG AI Performed By: #### 9 05, %45769, 809, 249 #### [facility] of [address], [address] [place], [place] [address] Pin Worker: Maged Olson MD #### #### [facility]/[place] [address] [facility] [place], [place] Pin Worker: Yassine Bonilla M.D.,PhD SED RATE BY MODIFIED WESTERG [place] 12-15-2024 SED RATE BY MODIFIED WESTERGREN 9 mm/h Normal < OR = 20 [facility] Comment on above: Performed By: #### 9 05, %88612, 809, 249 #### [facility] of [address], [address] [place], [place] [address] Pin Worker: Maged Olson MD #### #### [facility] [address] [facility] [address] [place] Pin Worker: Yassine Bonilla M.D.,PhD URIC ACIDon 12-15-2024 Urate [Mass/Vol] 5.6 mg/dL Normal 4.0-8.0 [facility] Comment on above: Result Comment: Ther apeutic target for gout patients: <6.0 mg/dL Performed By: #### 9 05, %01945, 809, 249 #### [facility] [address] [facility], [address] [place] [address] Pin Worker: Maged Olson MD #### [id number] #### [facility] [address] [facility] [address] [place] Pin Worker: Yassine Bonilla M.D.,PhD Laboratory - Hematology and Cell countson 12-09-2024 HbA1c (Bld) [Mass fraction] 7.1 % [facility] No Panel Informationon 12-09 [facility] XR Knee - left [address] [address] XRay Report Signed Patient: MANISH ROOT MR#: [id number] : 1945 Acct:[id number] Age/Sex: 79 / M ADM Date: 12/09/24 Loc: RAD Attending Dr: MASON JOHNSON Ordering Physician: MASON JOHNSON Date of Service: 12/09/24 Procedure(s): XR knee LT 3V Accession Number(s): [id number] cc: MASON JOHNSON [address] [address] Patient Name: MANISH ROOT MRN: [id number] date: 1945 Sex: M Assigned Patient Location: RAD Current Patient Location: RAD Accession/Order Number: [id number] Exam Date: 12/09/2024 13:17 Report Date: 12/09/2024 13:18 At the request of: MASON JOHNSON Procedure: XR knee LT 3V LEFT KNEE - 3 views COMPARISON: 08/01/2020 and MRI 11/07/2020 CLINICAL DATA: Left knee pain for the past few weeks laterally. No reported injury. AP, lateral and internal oblique views were obtained. There is osteopenia. No acute fracture or dislocation is identified. There is minimal medial tibiofemoral joint compartment narrowing. There is minor tricompartment marginal spurring. Chondrocalcinosis of the menisci is again seen. There is no knee effusion or soft tissue swelling. XR/XR knee LT 3V IMPRESSION: MILD DEGENERATIVE CHANGE INCLUDING MENISCAL CHONDROCALCINOSIS. NO ACUTE BONY FINDINGS. Impression dictated by: Mavis Corea M.D. 12/09/2024 1:18 PM Dictation Location: [place] [address] Electronically authenticated by: [id number] Y Date: 12/09/2024 13:18 Dictated By: Mavis Corea M.D. Signed By: 12/09/24 1321 DD/ 1318 TD/TT: Raveler: [facility] Radiology, Radiologist, MD - 12/09/2024 The [place] [id number] XRay Report Signed Patient: MANISH ROOT MR#: [id number] : 1945 Acct:[id number] Age/Sex: 79 / M ADM Date: 12/09/24 Loc: RAD Attending Dr: MASON JOHNSON Ordering Physician: MASON JOHNSON Date of Service: 12/09/24 Procedure(s): XR knee LT 3V Accession Number(s): [id number] cc: MASON JOHNSON The [place] [id number] Patient Name: MANISH ROOT MRN: [facility]:[id number] date: 1945 Sex: M Assigned Patient Location: [facility] Current Patient Location: [facility] Accession/Order Number: [id number] Exam Date: 12/09/2024 13:17 Report Date: 12/09/2024 13:18 At the request of: MASON JOHNSON Procedure: XR knee LT 3V LEFT KNEE - 3 views COMPARISON: 08/01/2020 and MRI 11/07/2020 CLINICAL DATA: Left knee pain for the past few weeks laterally. No reported injury. AP, lateral and internal oblique views were obtained. There is osteopenia. No acute fracture or dislocation is identified. There is minimal medial tibiofemoral joint compartment narrowing. There is minor tricompartment marginal spurring. Chondrocalcinosis of the menisci is again seen. There is no knee effusion or soft tissue swelling. XR/XR knee LT 3V IMPRESSION: MILD DEGENERATIVE CHANGE INCLUDING MENISCAL CHONDROCALCINOSIS. NO ACUTE BONY FINDINGS. Impression dictated by: Mavis Corea M.D. 12/09/2024 1:18 PM Dictation Location: [place] [address] Electronically authenticated by: [id number] Y Date: 12/09/2024 13:18 Dictated By: Mavsi Corea M.D. Signed By: 12/09/24 1321 DD/ 1318 TD/TT: Raveler: [facility] Radiology Study observation (narrative) [facility] [employer] XR Knee - left 3 ViewsOrdere d By: Radiologist Radiology on 12-09-2024 [facility] [employer] Work Phone: [facility] T3 SERPL-MCNCon 12-03-19 25 [facility] T3 SERPL-MCNC 73 ng/dL Low 79 - 165 ng/dL [facility] Interpretation and review of laboratory results Abnormal [facility] T4 SERPL-MCNCon 12-03-19 25 T4 [Mass/Vol] 5.6 ug/dL 5.5 - 10.2 ug/dL [facility] TSH SERPL-ACNCon 2 025 [facility] TSH SERPL-ACNC 2.85 [facility] No Panel Informationon 12-02 Specimen Type: BLOOD SPECIMEN Ordering Facility: [facility] Address: [address] [id number] Original Ordering Provider: Yordan HUIZAR [facility] Clean[employer]ie e T3 SerPl-mCncon 12-02-2024 T3 [Mass/Vol] 73 ng/dL Low 79-165 [facility] Comment on above: Order Comment: Speci men Type: BLOOD SPECIMENOrdering Facility: [facility] Address: [address] [place] [address] Performed By: #### 3 053-6, 3026-2, 3015-3 ####[facility] [id number] [place] [id number] [facility] T4 SerPl-mCncon 12-02-2024 T4 [Mass/Vol] 5.6 ug/dL Normal 5.5-10.2 [facility] Comment on above: Order Comment: Speci men Type: BLOOD SPECIMENOrdering Facility: [facility] Address: [address] [place] [address] Performed By: #### 3 053-6, 3026-2, 3 ####[facility] [id number] [address] OF [place] TSH SerPl-aCncon 12-02-2024 TSH Qn 2.850 m[IU]/L Normal 0.270-4.200 [facility] Comment on above: Order Comment: Speci men Type: BLOOD SPECIMENOrdering Facility: [facility] Address: [address] [place] [address] Performed By: #### 3 053-6, 3026-2, 3 ####[facility] [id number] [address] OF [facility] CNOVon 11-04-2024 CNOV Office Visit (RADTSA ) MANISH ROOT ([id number]) 1945 M Date Time Provider Department 11/04/24 11:45 AM Yordan FELIZ During your visit today, we recorded the following information about you: Yordan Feliz MD 11/06/2024 9:23 AM Signed Radiation Oncology - Follow Up [...] any significant neck pain or dysphagia. LABORATORY: Latest Reference Range AND Units 10/23/23 10:52 10/28/24 07:53 T4 5.5 - 10.2 ug/dL 0.6 (L) Free T4 0.9 - 1.7 ng/dL 1.2 TSH 0.270 - 4.200 mIU/L 2.750 3.310 T3 79 - 165 ng/dL 93 (L): Data is abnormally low Hemoglobin (g/dL) Date Value 10/28/2024 14.0 Hematocrit (%) Date Value 10/28/2024 41.1 WBC (k/uL) Date Value 10/28/2024 3.91 Platelet Count (k/uL) Date Value 10/28/2024 210 Latest Reference Range AND Units 10/16/23 10:46 [...] Lymph 1.00 - 4.00 k/uL 0.48 (L) Phelps% % 10.4 Abs Phelps <0.87 k/uL 0.32 Eosin% % 1.6 Abs Eosin <0.46 k/uL 0.05 Baso% % 0.6 Abs Baso <0.11 k/uL <0.03 Immature Gran % % 0.6 IMMATURE GRANS (ABS) <0.10 k/uL <0.03 NRBC /100 WBC 0.0 Absolute nRBC <0.01 k/uL <0.01 (L): Data is abnormally low RADIOLOGY: CT chest 10/28/2024: IMPRESSION: 1. No interval change since 04/23/24. 2. Mild patchy opacities in the left lung apex and subcentimeter nodular opacities in the right lung, stable. CT neck 10/28/2024: IMPRESSION: Primary: NI-RADS 1. Stable post-treatment changes in the neck without evidence of recurrent disease in the primary site. Neck: NI-RADS 1. No pathologic cervical lymphadenopathy by size criteria. CT neck 04/23/2024:IMPRESSION : 1. STABLE POSTTREATMENT [...] osseous lesions ALLERGIES No Known Allergies MEDICATIONS: celecoxib (CELEBREX) 200 mg capsule Take 200 mg by mouth once daily. iv contrast (will be provided with radiology test) CT Chest W -Inject, intravenously, once for 1 dose.No IV access, insert saline lock prior to the beginning of sedation, infusion, injection of im (more content not included)... Normal [facility] CNOVSPon 11-04-2024 CNOVSP Visit (SP) Office (BRUNA) MANISH ROOT ([id number]) 1945 M Date Time Provider Department 11/04/24 11:20 AM JOHN ENGLAND During your visit today, we recorded the following information about you: Temperature Pulse Respiration Blood pressure 97.9 degrees 55/minute 16/minute 155/69 Weight Height 91.7 kg 1.669 m John England MD 11/04/2024 11:[address] Neck and Chest in 6 months Labs same day RTC 1 week after to review John England MD 11/04/2024 7:00 PM Signed NAME: Manish Root [facility] NO.: [id number] DATE OF SERVICE: November 04, 2024 ([facility]) Some elements in this clinic note that are critical to medical decision making have been carefully reviewed and included from a prior clinic note dated: May 06, 2024 (Jacquelyn) Referring Provider: Dr. Татьяна Feliz Additional Clinicians involved in Manish Root's care: Serene Morales DIAGNOSIS: Base of Tongue squamous cell ca. ASSESSMENT: 79 year old man with base of tongue [...] - HPI: CASE HISTORY: Reverse Chronological Order 10/28/2024 - CT Neck AND Chest: Neck: Stable post-treatment changes in the neck without evidence of recurrent disease in the primary site. NI-RADS 1. No pathologic cervical lymphadenopathy by size criteria. Chest: No interval change since 04/23/24. Mild patchy opacities in the left lung apex and subcentimeter nodular opacities in the right lung, stable. 04/23/2024 - CT Neck AND Chest: Neck: [...] Ca Stage 3 - 2/5 LN + [place] regimen on protocol Updated Visit, November 04, 2024: Manish is doing well but his Jahaira is still dealing with an infection of left shoulder. He's now doing all the cooking. He is having left hip pain c/w arthritis. Reviewed scans and th (more content not included)... Normal [facility] CBC W Auto Differential pane l (Bld)on 10-28-2024 Basophils (Bld) [#/Vol] 0.04 10*3/uL Normal <0.11 [facility] Comment on above: Order Comment: Speci men Type: BLOOD SPECIMENOrdering Facility: [facility] Address: [address] [place] [address] Performed By: #### 5 7021-8 ####[facility] LABCLIA [id number] [place] [address] Basophils/100 WBC (Bld) 1.0 % Normal [facility] Comment on above: Order Comment: Speci men Type: BLOOD SPECIMENOrdering Facility: [facility] Address: [address] [place] [address] Performed By: #### 5 7021-8 ####[facility] LABCLIA [id number] [place] [address] Differential cell count method Nom (Bld) Auto Normal [facility] Comment on above: Order Comment: Speci men Type: BLOOD SPECIMENOrdering Facility: [facility] Address: [address] [place] [address] Performed By: #### 5 7021-8 ####[facility] LABCLIA [id number] [place] [address] Eosinophils (Bld) [#/Vol] 0.10 10*3/uL Normal <0.46 [facility] Comment on above: Order Comment: Speci men Type: BLOOD SPECIMENOrdering Facility: [facility] Address: [address] [place] [address] Performed By: #### 5 7021-8 ####[facility] LABCLIA [id number] [place] [address] Eosinophils/100 WBC (Bld) 2.6 % Normal [facility] Comment on above: Order Comment: Speci men Type: BLOOD SPECIMENOrdering Facility: [facility] Address: [address] [place] [address] Performed By: #### 5 7021-8 ####[facility] LABCLIA [id number] [place] [address] Erythrocyte distribution width (RBC) [Ratio] 13.6 % Normal 11.5-15.0 [facility] Comment on above: Order Comment: Speci men Type: BLOOD SPECIMENOrdering Facility: [facility] Address: [address] [place] [address] Performed By: #### 5 7021-8 ####[facility] LABCLIA [id number] [place] [address] Hematocrit (Bld) [Volume fraction] 41.1 % Normal 39.0-51.0 [facility] Comment on above: Order Comment: Speci men Type: BLOOD SPECIMENOrdering Facility: [facility] Address: [address] [place] [address] Performed By: #### 5 7021-8 ####[facility] LABCLIA [id number] [place] [address] Hemoglobin (Bld) [Mass/Vol] 14.0 g/dL Normal 13.0-17.0 [facility] Comment on above: Order Comment: Speci men Type: BLOOD SPECIMENOrdering Facility: [facility] Address: [address] [place] [address] Performed By: #### 5 7021-8 ####[facility] LABCLIA [id number] [place] [address] Immature granulocytes (Bld) [#/Vol] 0.04 10*3/uL Normal <0.10 [facility] Comment on above: Order Comment: Speci men Type: BLOOD SPECIMENOrdering Facility: [facility] Address: [address] [place] [address] Performed By: #### 5 7021-8 ####[facility] LABCLIA [id number] [place] [address] Immature granulocytes/100 WBC (Bld) 1.0 % Normal [facility] Comment on above: Order Comment: Speci men Type: BLOOD SPECIMENOrdering Facility: [facility] Address: [address] [place] [address] Performed By: #### 5 7021-8 ####[facility] LABCLIA [id number] [place] [address] Lymphocytes (Bld) [#/Vol] 0.58 10*3/uL Low 1.00-4.00 [facility] Comment on above: Order Comment: Speci men Type: BLOOD SPECIMENOrdering Facility: [facility] Address: [address] [place] [address] Performed By: #### 5 7021-8 ####[facility] LABCLIA [id number] [place] [address] Lymphocytes/100 WBC (Bld) 14.8 % Normal [facility] Comment on above: Order Comment: Speci men Type: BLOOD SPECIMENOrdering Facility: [facility] Address: [address] [place] [address] Performed By: #### 5 7021-8 ####[facility] LABCLIA [id number] [place] [address] MCH (RBC) [Entitic mass] 30.8 pg Normal 26.0-34.0 [facility] Comment on above: Order Comment: Speci men Type: BLOOD SPECIMENOrdering Facility: [facility] Address: [address] [place] [address] Performed By: #### 5 7021-8 ####[facility] LABCLIA [id number] [place] [address] MCHC (RBC) [Mass/Vol] 34.1 g/dL Normal 30.5-36.0 [facility] Comment on above: Order Comment: Speci men Type: BLOOD SPECIMENOrdering Facility: [facility] Address: [address] [place] [address] Performed By: #### 5 7021-8 ####[facility] LABCLIA [id number] [place] [address] MCV (RBC) [Entitic vol] 90.3 fL Normal 80.0-100.0 [facility] Comment on above: Order Comment: Speci men Type: BLOOD SPECIMENOrdering Facility: [facility] Address: [address] [place] [address] Performed By: #### 5 7021-8 ####[facility] LABCLIA [id number] [place] [address] Monocytes (Bld) [#/Vol] 0.34 10*3/uL Normal <0.87 [facility] Comment on above: Order Comment: Speci men Type: BLOOD SPECIMENOrdering Facility: [facility] Address: [address] [place] [address] Performed By: #### 5 7021-8 ####[facility] LABCLIA [id number] [place] [address] Monocytes/100 WBC (Bld) 8.7 % Normal [facility] Comment on above: Order Comment: Speci men Type: BLOOD SPECIMENOrdering Facility: [facility] Address: [address] [place] [address] Performed By: #### 5 7021-8 ####[facility] LABCLIA [id number] [place] [address] Neutrophils (Bld) [#/Vol] 2.81 10*3/uL Normal 1.45-7.50 [facility] Comment on above: Order Comment: Speci men Type: BLOOD SPECIMENOrdering Facility: [facility] Address: [address] [place] [address] Performed By: #### 5 7021-8 ####[facility] LABCLIA [id number] [place] [address] Neutrophils/100 WBC (Bld) 71.9 % Normal [facility] Comment on above: Order Comment: Speci men Type: BLOOD SPECIMENOrdering Facility: [facility] Address: [address] [place] [address] Performed By: #### 5 7021-8 ####[facility] LABCLIA [id number] [place] [address] Nucleated RBC (Bld) [#/Vol] 10*3/uL Normal <0.01 [facility] Comment on above: Order Comment: Speci men Type: BLOOD SPECIMENOrdering Facility: [facility] Address: [address] [place] [address] Performed By: #### 5 7021-8 ####[facility] LABCLIA [id number] [place] [address] Nucleated RBC/100 WBC (Bld) [Ratio] 0.0 /100 WBC Normal [facility] Comment on above: Order Comment: Speci men Type: BLOOD SPECIMENOrdering Facility: [facility] Address: [address] [place] [address] Performed By: #### 5 7021-8 ####[facility] LABIA [id number] [place] [address] Platelet mean volume (Bld) [Entitic vol] 9.7 fL Normal 9.0-12.7 [facility] Comment on above: Order Comment: Speci men Type: BLOOD SPECIMENOrdering Facility: [facility] Address: [address] [place] [address] Performed By: #### 5 7021-8 ####[facility] LABCLIA [id number] [place] [address] Platelets (Bld) [#/Vol] 210 10*3/uL Normal 150-400 [facility] Comment on above: Order Comment: Speci men Type: BLOOD SPECIMENOrdering Facility: [facility] Address: [address] [place] [address] Performed By: #### 5 7021-8 ####[facility] LABIA [id number] [place] [address] RBC (Bld) [#/Vol] 4.55 10*6/uL Normal 4.20-6.00 [facility] Comment on above: Order Comment: Speci men Type: BLOOD SPECIMENOrdering Facility: [facility] Address: [address] [place] [address] Performed By: #### 5 7021-8 ####[facility] [id number] [place] [address] WBC (Bld) [#/Vol] 3.91 10*3/uL Normal 3.70-11.00 [facility] Comment on above: Order Comment: Speci men Type: BLOOD SPECIMENOrdering Facility: [facility] Address: [address] [place] [address] Performed By: #### 5 7021-8 ####[facility] LABIA [id number] [place] [address] [facility] CBC W AUTO DIFF BLDon Basophils/100 WBC (Bld) 1 % [facility] BASOPHILS # BLD AUTO 0.04 [facility] DIFFERENTIAL METHOD BLD Auto [facility] EOSINOPHIL # BLD AUTO 0.1 [facility] LYMPHOCYTES # BLD AUTO 0.58 Low [facility] MONOCYTES # BLD AUTO 0.34 [facility] NEUTROPHILS # BLD AUTO 2.81 [facility] NRBC # BLD AUTO <0.01 [facility] NRBC/100 WBC BLD-RTO 0 /100 WBC [facility] PLATELET # BLD AUTO 210 [facility] PMV BLD AUTO 9.7 fL 9.0 - 12.7 fL [facility] WBC # BLD AUTO 3.91 [facility]care Eosinophils/100 WBC (Bld) 2.6 % [facility] Erythrocyte distribution width (RBC) [Ratio] 13.6 % 11.5 - 15.0 % [facility] Hematocrit (Bld) [Volume fraction] 41.1 % 39.0 - 51.0 % [facility] Hemoglobin (Bld) [Mass/Vol] 14 g/dL 13.0 - 17.0 g/dL [facility] IMM GRANULOCYTES # BLD AUTO 0.04 NINF [facility] IMM GRANULOCYTES/LEUK NFR BLD AUTO 1 % [facility] Interpretation and review of laboratory results Abnormal [facility] Lymphocytes/100 WBC (Bld) 14.8 % [facility] MCH (RBC) [Entitic mass] 30.8 pg 26.0 - 34.0 pg [facility] MCHC (RBC) [Mass/Vol] 34.1 g/dL 30.5 - 36.0 g/dL [facility] MCV (RBC) [Entitic vol] 90.3 fL 80.0 - 100.0 fL [facility] Monocytes/100 WBC (Bld) 8.7 % [facility] Neutrophils/100 WBC (Bld) 71.9 % [facility] RBC (Bld) [#/Vol] 4.55 10*6/uL 4.20 - 6.0 0 m/uL [facility] Specimen Type: BLOOD SPECIMEN Ordering Facility: [facility] Address: [address] [place] [address] Original Ordering Provider: [facility] IV[facility]on CT CHEST W IVCON * * *Final Report* * * DATE OF EXAM: Oct 28 2024 9:48AM [facility] 0539 - CT CHEST W [...] Dose-length product (DLP) for this visit = 987 mGy*cm CT Dose Reduction Employed: Automated exposure control (AEC) Comparison: 04/23/24 RESULT: Limitations: None. Lines, tubes, and devices: None. Lung parenchyma and airways: Mild patchy opacities in the left lung apex (4:28), stable. Subcentimeter nodular opacities measuring less than 5 mm along the right major fissure (4:96), stable. No new airspace opacities. The central airways are patent. Pleural space: No pleural effusion. No pleural thickening. Lower neck, lymph nodes, and mediastinum: The imaged thyroid gland is normal. No lymphadenopathy in the supraclavicular, axillary, mediastinal, or hilar regions. Please refer to the neck CT scan report for the neck findings. Heart, pericardium, and thoracic vessels: The thoracic aorta is normal in caliber. Prominence of the main pulmonary artery measuring 3.1 cm in diameter can be associated with pulmonary hypertension. The cardiac chambers are normal in size. Atherosclerotic coronary artery calcifications are noted. No pericardial effusion or thickening. Bones and soft tissues: No suspicious lytic or blastic osseous lesions. Upper abdomen: Diffuse hepatic fatty infiltration. The left adrenal gland is incompletely visualized. No evidence of an adrenal mass in the visualized field of view. Localizer images: No additional findings. IMPRESSION: 1. No interval change since 04/23/24. 2. Mild patchy opacities in the left lung apex and subcentimeter nodular opacities in the right lung, stable. Transcribe Date/Time: Oct 28 2024 10:40A Dictated by: ADAM MONTE MD This examination was interpreted and the report reviewed and electronically signed by: ADAM MONTE MD on Oct 28 2024 11:30AM EST Thank you for allowing us to participate in the care of your patient. Should there be any questions regarding this interpretation, please call [phone]. If you are unable to reach us at the number above, please feel free to contact [facility] eRadiology at [phone]. [id number] N Normal [facility] CT Chest W contrast [place] * * *Final Report* * * DATE OF EXAM: Oct 28 2024 9:48AM [facility] 0539 - CT CHEST W [...] Dose-length product (DLP) for this visit = 987 mGy*cm CT Dose Reduction Employed: Automated exposure control (AEC) Comparison: 04/23/24 RESULT: Limitations: None. Lines, tubes, and devices: None. Lung parenchyma and airways: Mild patchy opacities in the left lung apex (4:28), stable. Subcentimeter nodular opacities measuring less than 5 mm along the right major fissure (4:96), stable. No new airspace opacities. The central airways are patent. Pleural space: No pleural effusion. No pleural thickening. Lower neck, lymph nodes, and mediastinum: The imaged thyroid gland is normal. No lymphadenopathy in the supraclavicular, axillary, mediastinal, or hilar regions. Please refer to the neck CT scan report for the neck findings. Heart, pericardium, and thoracic vessels: The thoracic aorta is normal in caliber. Prominence of the main pulmonary artery measuring 3.1 cm in diameter can be associated with pulmonary hypertension. The cardiac chambers are normal in size. Atherosclerotic coronary artery calcifications are noted. No pericardial effusion or thickening. Bones and soft tissues: No suspicious lytic or blastic osseous lesions. Upper abdomen: Diffuse hepatic fatty infiltration. The left adrenal gland is incompletely visualized. No evidence of an adrenal mass in the visualized field of view. Localizer images: No additional findings. IMPRESSION: 1. No interval change since 04/23/24. 2. Mild patchy opacities in the left lung apex and subcentimeter nodular opacities in the right lung, stable. Transcribe Date/Time: Oct 28 2024 10:40A Dictated by: ADAM MONTE MD This examination was interpreted and the report reviewed and electronically signed by: ADAM MONTE MD on Oct 28 2024 11:30AM EST Thank you for allowing us to participate in the care of your patient. Should there be any questions regarding this interpretation, please call [phone]. If you are unable to reach us at the number above, please feel free to contact [facility] at [phone]. [id number] ^ACN [facility], Radiologist, - 10/28/2024 * * *Final Report* * * DATE OF EXAM: Oct 28 2024 9:48AM [facility] 0539 - CT CHEST W [...] Dose-length product (DLP) for this visit = 987 mGy*cm CT Dose Reduction Employed: Automated exposure control (AEC) Comparison: 04/23/24 RESULT: Limitations: None. Lines, tubes, and devices: None. Lung parenchyma and airways: Mild patchy opacities in the left lung apex (4:28), stable. Subcentimeter nodular opacities measuring less than 5 mm along the right major fissure (4:96), stable. No new airspace opacities. The central airways are patent. Pleural space: No pleural effusion. No pleural thickening. Lower neck, lymph nodes, and mediastinum: The imaged thyroid gland is normal. No lymphadenopathy in the supraclavicular, axillary, mediastinal, or hilar regions. Please refer to the neck CT scan report for the neck findings. Heart, pericardium, and thoracic vessels: The thoracic aorta is normal in caliber. Prominence of the main pulmonary artery measuring 3.1 cm in diameter can be associated with pulmonary hypertension. The cardiac chambers are normal in size. Atherosclerotic coronary artery calcifications are noted. No pericardial effusion or thickening. Bones and soft tissues: No suspicious lytic or blastic osseous lesions. Upper abdomen: Diffuse hepatic fatty infiltration. The left adrenal gland is incompletely visualized. No evidence of an adrenal mass in the visualized field of view. Localizer images: No additional findings. IMPRESSION: 1. No interval change since 04/23/24. 2. Mild patchy opacities in the left lung apex and subcentimeter nodular opacities in the right lung, stable. Transcribe Date/Time: Oct 28 2024 10:40A Dictated by: ADAM MONTE MD This examination was interpreted and the report reviewed and electronically signed by: ADAM MONTE MD on Oct 28 2024 11:30AM EST Thank you for allowing us to participate in the care of your patient. Should there be any questions regarding this interpretation, please call [phone]. If you are unable to reach us at the number above, please feel free to contact [facility] at [phone]. 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 Upon further review the electronic medical record, history of [id number] LEFT tongue base squamous cell carcinoma status post chemotherapy completed October/2022). TECHNIQUE: CT neck soft tissues following IV administration of [address] Dose-Length Product (DLP): 987 mGy*cm CT Dose Reduction Employed: Automated exposure control (AEC) COMPARISON: CT neck 04/23/2024, 07/27/2022 RESULT: Post-treatment changes: Stable asymmetric prominence of the LEFT tongue base and LEFT vallecula at site of previously enhancing LEFT tongue base lesion noted on CT and neck 07/27/2022. No enhancing residual/recurrent disease at the primary site or elsewhere in the neck. Stable posttreatment/postrad iation changes including mucosal/submucosal edema and bilateral subarticular mandibular gland atrophy, also unchanged. Lymph nodes: No cervical lymphadenopathy by size, number or morphologic criteria. Aerodigestive tract: The oral cavity is partially obscured by artifact from dental amalgam. The nasal cavities, naso-oropharynx, pharyngeal mucosal space, laryngeal structures and infraglottic trachea are within normal limits. Major salivary glands: Bilateral submandibular gland atrophy. Parotid glands appear unremarkable. Thyroid gland: Heterogeneous thyroid gland otherwise within normal limits. Carotid space: Patent bilateral extracranial carotid and jugular systems. Hypothalamic calcifications of the bilateral carotid bifurcations resulting in up breast mild narrowing of the proximal cervical ICAs, although the study is not optimized for carotid artery assessment. Intracranial contents: No abnormal intracranial enhancement, mass effect, or hydrocephalus. Orbits, Face and Skull Base: Orbital soft tissue planes are preserved. Bilateral pseudophakia. Paranasal sinuses are clear. Mastoid air cells and middle ear cavities are clear. No evidence of an osteolytic or osteoblastic process in the skull base. Bones: No suspicious osseous lesions in the imaged calvarium, skull base and spine. Straightening of the cervical lordosis. Multilevel degenerative changes with ossification of the posterior longitudinal ligament resulting in up to moderate spinal canal narrowing at C4-C6. Multilevel uncovertebral hypertrophy and facet arthropathy with up to moderate to severe neural foraminal narrowing and C3-C6.. Temporomandibular joints are maintained. Lungs: Please see concurrent CT chest for complete evaluation of the intrathoracic contents. IMPRESSION: Primary: NI-RADS 1. Stable post-treatment changes in the neck without evidence of recurrent disease in the primary site. Neck: NI-RADS 1. No pathologic cervical lymphadenopathy by size criteria. Transcribe Date/Time: Oct 28 2024 10:57A Dictated by: SHIV MANZANO MD This examination was interpreted and the report reviewed and electronically signed by: SHIV MANZANO MD on Oct 28 2024 11:09AM EST Thank you for allowing us to participate in the care of your patient. Should there be any questions regarding this interpretation, please call [phone]. If you are unable to reach us at the number above, please feel free to contact [facility] at [phone]. 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 Upon further review the electronic medical record, history of Z43-rbgskwin LEFT tongue base squamous cell carcinoma status post chemotherapy completed October/2022). TECHNIQUE: CT neck soft tissues following IV administration of [address] Dose-Length Product (DLP): 987 mGy*cm CT Dose Reduction Employed: Automated exposure control (AEC) COMPARISON: CT neck 04/23/2024, 07/27/2022 RESULT: Post-treatment changes: Stable asymmetric prominence of the LEFT tongue base and LEFT vallecula at site of previously enhancing LEFT tongue base lesion noted on CT and neck 07/27/2022. No enhancing residual/recurrent disease at the primary site or elsewhere in the neck. Stable posttreatment/postrad iation changes including mucosal/submucosal edema and bilateral subarticular mandibular gland atrophy, also unchanged. Lymph nodes: No cervical lymphadenopathy by size, number or morphologic criteria. Aerodigestive tract: The oral cavity is partially obscured by artifact from dental amalgam. The nasal cavities, naso-oropharynx, pharyngeal mucosal space, laryngeal structures and infraglottic trachea are within normal limits. Major salivary glands: Bilateral submandibular gland atrophy. Parotid glands appear unremarkable. Thyroid gland: Heterogeneous thyroid gland otherwise within normal limits. Carotid space: Patent bilateral extracranial carotid and jugular systems. Hypothalamic calcifications of the bilateral carotid bifurcations resulting in up breast mild narrowing of the proximal cervical ICAs, although the study is not optimized for carotid artery assessment. Intracranial contents: No abnormal intracranial enhancement, mass effect, or hydrocephalus. Orbits, Face and Skull Base: Orbital soft tissue planes are preserved. Bilateral pseudophakia. Paranasal sinuses are clear. Mastoid air cells and middle ear cavities are clear. No evidence of an osteolytic or osteoblastic process in the skull base. Bones: No suspicious osseous lesions in the imaged calvarium, skull base and spine. Straightening of the cervical lordosis. Multilevel degenerative changes with ossification of the posterior longitudinal ligament resulting in up to moderate spinal canal narrowing at C4-C6. Multilevel uncovertebral hypertrophy and facet arthropathy with up to moderate to severe neural foraminal narrowing and C3-C6.. Temporomandibular joints are maintained. Lungs: Please see concurrent CT chest for complete evaluation of the intrathoracic contents. IMPRESSION: Primary: NI-RADS 1. Stable post-treatment changes in the neck without evidence of recurrent disease in the primary site. Neck: NI-RADS 1. No pathologic cervical lymphadenopathy by size criteria. Transcribe Date/Time: Oct 28 2024 10:57A Dictated by: SHIV MANZANO MD This examination was interpreted and the report reviewed and electronically signed by: SHIV MANZANO MD on Oct 28 2024 11:09AM EST Thank you for allowing us to participate in the care of your patient. Should there be any questions regarding this interpretation, please call [phone]. If you are unable to reach us at the number above, please feel free to contact [facility] at [phone]. 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 TECHNIQUE: CT neck soft tissues following IV administration of [address] Dose-Length Product (DLP): 987 mGy*cm CT Dose Reduction Employed: Automated exposure control (AEC) COMPARISON: CT neck 04/23/2024, 07/27/2022 RESULT: Post-treatment changes: Stable asymmetric prominence of the LEFT tongue base and LEFT vallecula at site of previously enhancing LEFT tongue base lesion noted on CT and neck 07/27/2022. No enhancing residual/recurrent disease at the primary site or elsewhere in the neck. Stable posttreatment/postrad iation changes including mucosal/submucosal edema and bilateral subarticular mandibular gland atrophy, also unchanged. Lymph nodes: No cervical lymphadenopathy by size, number or morphologic criteria. Aerodigestive tract: The oral cavity is partially obscured by artifact from dental amalgam. The nasal cavities, naso-oropharynx, pharyngeal mucosal space, laryngeal structures and infraglottic trachea are within normal limits. Major salivary glands: Bilateral submandibular gland atrophy. Parotid glands appear unremarkable. Thyroid gland: Heterogeneous thyroid gland otherwise within normal limits. Carotid space: Patent bilateral extracranial carotid and jugular systems. Hypothalamic calcifications of the bilateral carotid bifurcations resulting in up breast mild narrowing of the proximal cervical ICAs, although the study is not optimized for carotid artery assessment. Intracranial contents: No abnormal intracranial enhancement, mass effect, or hydrocephalus. Orbits, Face and Skull Base: Orbital soft tissue planes are preserved. Bilateral pseudophakia. Paranasal sinuses are clear. Mastoid air cells and middle ear cavities are clear. No evidence of an osteolytic or osteoblastic process in the skull base. Bones: No suspicious osseous lesions in the imaged calvarium, skull base and spine. Straightening of the cervical lordosis. Multilevel degenerative changes with ossification of the posterior longitudinal ligament resulting in up to moderate spinal canal narrowing at C4-C6. Multilevel uncovertebral hypertrophy and facet arthropathy with up to moderate to severe neural foraminal narrowing and C3-C6.. Temporomandibular joints are maintained. Lungs: Please see concurrent CT chest for complete evaluation of the intrathoracic contents. IMPRESSION: Primary: NI-RADS 1. Stable post-treatment changes in the neck without evidence of recurrent disease in the primary site. Neck: NI-RADS 1. No pathologic cervical lymphadenopathy by size criteria. Transcribe Date/Time: Oct 28 2024 10:57A Dictated by: SHIV MANZANO MD This examination was interpreted and the report reviewed and electronically signed by: SHIV MANZANO MD on Oct 28 2024 11:09AM EST Thank you for allowing us to participate in the care of your patient. Should there be any questions regarding this interpretation, please call [phone]. If you are unable to reach us at the number above, please feel free to contact [facility]iology at [phone]. [id number] N Normal [facility] CT NECK SOFT TISSUE W IVCONO rdered By: Radiologist Radiology on 10-28-2024 [facility] [employer] Work Phone: Comprehensive metabolic 2000 panelon 10-28-2024 Albumin [Mass/Vol] 4.6 g/dL Normal 3.9-4.9 [facility] Comment on above: Order Comment: Speci men Type: BLOOD SPECIMENOrdering Facility: [facility] Address: [address] [place] [address] Performed By: #### 3 016-3 ####[facility] LABCLIA [id number] [address] [address] [place]#### 25942-1 ####[facility] LABCLIA [id number] [place] [address] ALP [Catalytic activity/Vol] 61 U/L Normal 38-113 [facility] Comment on above: Order Comment: Speci men Type: BLOOD SPECIMENOrdering Facility: [facility] Address: [address] [place] [address] Performed By: #### 3 016-3 ####[facility] LABCLIA [id number] [place] [id number] [place]#### 86608-0 ####[facility] LABCLIA [id number] [place] [address] ALT [Catalytic activity/Vol] 27 U/L Normal 10-54 [facility] Comment on above: Order Comment: Speci men Type: BLOOD SPECIMENOrdering Facility: [facility] Address: [address] [place] [address] Performed By: #### 3 016-3 ####[facility] LABCLIA [id number] [place] [id number] [place]#### 35131-6 ####[facility] LABCLIA [id number] [place] [address] Anion gap [Moles/Vol] 11 mmol/L Normal 8-15 [facility] Comment on above: Order Comment: Speci men Type: BLOOD SPECIMENOrdering Facility: [facility] Address: [address] [place] [address] Performed By: #### 3 016-3 ####[facility] LABCLIA [id number] [address] [address] [place]#### 41913-7 ####[facility] LABCLIA [id number] [place] [address] AST [Catalytic activity/Vol] 23 U/L Normal 14-40 [facility] Comment on above: Order Comment: Speci men Type: BLOOD SPECIMENOrdering Facility: [facility] Address: [address] [place] [address] Performed By: #### 3 016-3 ####[facility] LABCLIA [id number] [place] [address] [place]#### 31692-6 ####[facility] LABCLIA [id number] [place] [address] Bilirubin [Mass/Vol] 0.5 mg/dL Normal 0.2-1.3 [facility] Comment on above: Order Comment: Speci men Type: BLOOD SPECIMENOrdering Facility: [facility] Address: [address] [place] [address] Performed By: #### 3 016-3 ####[facility] LABCLIA [id number] [place] [address] [place]#### 94153-0 ####[facility] LABCLIA [id number] [place] [address] Calcium [Mass/Vol] 9.8 mg/dL Normal 8.5-10.2 [facility] Comment on above: Order Comment: Speci men Type: BLOOD SPECIMENOrdering Facility: [facility] Address: [address] [place] [address] Performed By: #### 3 016-3 ####[facility] LABCLIA [id number] [place] [id number] [place]#### 23995-3 ####[facility] LABCLIA [id number] [place] [address] Chloride [Moles/Vol] 100 mmol/L Normal 98-107 [facility] Comment on above: Order Comment: Speci men Type: BLOOD SPECIMENOrdering Facility: [facility] Address: [address] [place] [address] Performed By: #### 3 016-3 ####[facility] LABCLIA [id number] [place] [id number] [place]#### 15759-7 ####[facility] LABCLIA [id number] [place] [address] CO2 [Moles/Vol] 27 mmol/L Normal 22-30 [facility] Comment on above: Order Comment: Speci men Type: BLOOD SPECIMENOrdering Facility: [facility] Address: [address] [place] [address] Performed By: #### 3 016-3 ####[facility] LABCLIA [id number] [place] [id number] [place]#### 72359-1 ####[facility] LABCLIA [id number] [place] [address] Creatinine [Mass/Vol] 1.04 mg/dL Normal 0.73-1.22 [facility] Comment on above: Order Comment: Speci men Type: BLOOD SPECIMENOrdering Facility: [facility] Address: [address] [place] [address] Performed By: #### 3 016-3 ####[facility] LABCLIA [id number] [place] [id number] [place]#### 39553-7 ####[facility] LABCLIA [id number] [place] [address] Creatinine and Glomerular filtration rate.predicted panel (S/P/Bld) 73 mL/min/1.73m??? Normal >=60 [facility] Comment on above: Order Comment: Marleen nito Type: BLOOD SPECIMENOrdering Facility: [facility] Address: [address] [place] [address] Result Comment: Felicity mated Glomerular Filtration Rate [...] accurately reflect actual GFR. Performed By: #### 3 016-3 ####[facility] LABCLIA [id number] [address]#### [address]-2 ####[facility] LABCLIA [id number] [place] [address] Glucose [Mass/Vol] 235 mg/dL High 74-99 [facility] Comment on above: Order Comment: Marleen beauchamp Type: BLOOD SPECIMENOrdering Facility: [facility] Address: [address] [place] [address] Result Comment: The [place] Diabetes Association (ADA) provides guidance for cutoff [...] Standards of Medical Care in Diabetes 2016, [place] Diabetes Association. Diabetes Care. 2016.39(Suppl 1). Performed By: #### 3 016-3 ####[facility] LABCLIA [id number] [address] [place]#### 79114-4 ####[facility] LABCLIA [id number] [place] [address] Potassium [Moles/Vol] 4.3 mmol/L Normal 3.7-5.1 [facility] Comment on above: Order Comment: Speci men Type: BLOOD SPECIMENOrdering Facility: [facility] Address: [address] [place] [address] Performed By: #### 3 016-3 ####[facility] LABCLIA [id number] [place] [address] [place]#### 25117-6 ####[facility] LABCLIA [id number] [place] [address] Protein [Mass/Vol] 7.2 g/dL Normal 6.3-8.0 [facility] Comment on above: Order Comment: Speci men Type: BLOOD SPECIMENOrdering Facility: [facility] Address: [address] [place] [address] Performed By: #### 3 016-3 ####[facility] LABCLIA [id number] [place] [id number] [place]#### 46617-5 ####[facility] LABCLIA [id number] [place] [address] Sodium [Moles/Vol] 138 mmol/L Normal 136-144 [facility] Comment on above: Order Comment: Speci men Type: BLOOD SPECIMENOrdering Facility: [facility] Address: [address] [place], [place] [address] Performed By: #### 3 016-3 ####[facility] LABCLIA [id number] [place] [id number] [place]#### 09622-4 ####[facility] LABCLIA [id number] [place] [address] Urea nitrogen [Mass/Vol] 13 mg/dL Normal 9-24 [facility] Comment on above: Order Comment: Speci men Type: BLOOD SPECIMENOrdering Facility: [facility] Address: [address] [place] [address] Performed By: #### 3 016-3 ####[facility] LABCLIA [id number] [place] [address] [place]#### 57842-5 ####[facility] LABIA [id number] [place] [address] No Panel Informationon 10-28 Radiology Study observation (narrative) [facility] T4 SerPl-mCncon 10-28-2024 T4 [Mass/Vol] 0.6 ug/dL Low 5.5-10.2 [facility] Comment on above: Order Comment: Speci men Type: BLOOD SPECIMENOrdering Facility: [facility] Address: [address] [place] [address] Performed By: #### 3 026-2 ####[facility] LABIA [id number] [place] [address] [place] TSH SerPl-aCncon 10-28-2024 TSH Qn 3.310 m[IU]/L Normal 0.270-4.200 [facility] Comment on above: Order Comment: Speci men Type: BLOOD SPECIMENOrdering Facility: [facility] Address: [address] [place] [address] Performed By: #### 3 016-3 ####[facility] LABIA [id number] [place] [address] [place]#### 17787-8 ####[facility] LABIA [id number] [place] [address] CNPCarol 10-27-2024 CNPN Telephone (Radcom[employer]) MANISH ROOT ([id number]) 1945 M Date Time Provider Department 10/27/24 Yordan FELIZ During your visit today, we recorded the following information about you: Nela Antoine RN 10/27/2024 12:55 PM Signed DENA- does pt need T4, TSH prior to RV? If so, please sign pended orders and they can be drawn during CT. 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 - latanoprost (XALATAN) 0.005 % ophthalmic solution [...] other day. 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 Attending Dr: MASON JOHNSON Ordering Physician: MASON JOHNSON Date of Service: 10/13/24 Procedure(s): XR cervical spine 2-3V Accession Number(s): [id number] cc: MASON JOHNSON [place] [id number] Patient Name: MANISH ROOT MRN: [id number] date: 1945 Sex: M Assigned Patient Location: [facility] Current Patient Location: [facility] Accession/Order Number: [id number] Exam Date: 10/13/2024 10:38 Report Date: 10/13/2024 10:40 At the request of: MASON JOHNSON Procedure: XR cervical spine 2-3V 3 viewscervical spine HISTORY: Chronic neck pain on the left. COMPARISON: None POSTOPERATIVE CHANGES: None BONY ALIGNMENT: Mild straightening HYPERMOBILITY::No bending imaging. LISTHESIS:Mild multilevel degenerative listhesis FRACTURE: None DISC DEGENERATION: Extensive multilevel disc space narrowing greatest at the C5-6 level. Endplate spurring. FACETS: Multilevel facet degeneration FORAMEN: Not assessed DENS: Intact CRANIOCERVICAL JUNCTION: Unremarkable SOFT TISSUES: Unremarkable XR/XR cervical spine 2-3V IMPRESSION: Extensive multilevel cervical spine degeneration greatest at the C5-6 level. Impression dictated by: Eric Alcaraz M.D.10/13/2024 10:40 AM Dictation Location: [place] [address] Electronically authenticated by: [id number] Y Date: 10/13/2024 10:40 Dictated By: Eric Alcaraz D.O. Signed By: 10/13/24 1043 DD/ 104 TD/TT: Raveler: [facility] Radiology, Radiologist, MD - 10/13/[address] [address] XRay Report Signed Patient: MANISH ROOT MR#: [id number] : 1945 Acct:[id number] Age/Sex: 78 / M ADM Date: 10/13/24 Loc: [facility] Attending Dr: MASON JOHNSON Ordering Physician: MASON JOHNSON Date of Service: 10/13/24 Procedure(s): XR cervical spine 2-3V Accession Number(s): [id number] cc: MASON JOHNSON [place] [address] Patient Name: MANISH ROOT MRN: [facility]:[id number] date: 1945 Sex: M Assigned Patient Location: [facility] Current Patient Location: [facility] Accession/Order Number: [id number] Exam Date: 10/13/2024 10:38 Report Date: 10/13/2024 10:40 At the request of: MASON JOHNSON Procedure: XR cervical spine 2-3V 3 viewscervical spine HISTORY: Chronic neck pain on the left. COMPARISON: None POSTOPERATIVE CHANGES: None BONY ALIGNMENT: Mild straightening HYPERMOBILITY::No bending imaging. LISTHESIS:Mild multilevel degenerative listhesis FRACTURE: None DISC DEGENERATION: Extensive multilevel disc space narrowing greatest at the C5-6 level. Endplate spurring. FACETS: Multilevel facet degeneration FORAMEN: Not assessed DENS: Intact CRANIOCERVICAL JUNCTION: Unremarkable SOFT TISSUES: Unremarkable XR/XR cervical spine 2-3V IMPRESSION: Extensive multilevel cervical spine degeneration greatest at the C5-6 level. Impression dictated by: Eric Alcaraz M.D.10/13/2024 10:40 AM Dictation Location: [place] [address] Electronically authenticated by: [id number] Y Date: 10/13/2024 10:40 Dictated By: Eric Alcaraz D.O. Signed By: 10/13/24 104 DD/ 1040 TD/TT: Raveler: [facility] [email or web address] Radiology Study observation (narrative) [facility] [email or web address] XR CERVICAL SPINE 2-3VOrdere d By: Radiologist Radiology on 10-13-2024 [facility] [employer] Work Phone: XR HIP LT [place] [address] [address] XRay Report Signed Patient: MANISH ROOT MR#: [id number] : 1945 Acct:[id number] Age/Sex: 78 / M ADM Date: 10/13/24 Loc: RAD Attending Dr: MASON JOHNSON Ordering Physician: MASON JOHNSON Date of Service: 10/13/24 Procedure(s): XR hip LT min 2V Accession Number(s): [id number] cc: MASON JOHNSON [place] [id number] Patient Name: MANISH ROOT MRN: TBH:[id number] date: 1945 Sex: M Assigned Patient Location: [facility] Current Patient Location: [facility] Accession/Order Number: [id number] Exam Date: 10/13/2024 10:37 Report Date: 10/13/2024 10:38 At the request of: MASON JOHNSON Procedure: XR hip LT min 2V 2 views left plain film COMPARISON: None HISTORY: Left hip pain ACUTE FINDINGS: None DEGENERATIVE CHANGE: Mild joint space narrowing. Marginal spurring. Greater trochanter spurring. Suspected chondrocalcinosis. Subarticular cystic changes of superior acetabulum. SOFT TISSUE FINDINGS: Unremarkable JOINT EFFUSION: None POSTOP CHANGES: None BONY MINERALIZATION: Adequate XR/XR hip LT min 2V IMPRESSION: Moderate left hip degenerative changes. Impression dictated by: Eric Alcaraz M.D.10/13/2024 10:38 AM Dictation Location: [place] [address] Electronically authenticated by: [id number] Y Date: 10/13/2024 10:38 Dictated By: Eric Alcaraz D.O. Signed By: 10/13/24 104 DD/ 1038 TD/TT: Raveler: [facility] Radiology, Radiologist, - 10/13/2024 [place] [id number] XRay Report Signed Patient: MANISH ROOT MR#: [id number] : 1945 Acct:[id number] Age/Sex: 78 / M ADM Date: 10/13/24 Loc: RAD Attending Dr: MASON JOHNSON Ordering Physician: MASON JOHNSON Date of Service: 10/13/24 Procedure(s): XR hip LT min 2V Accession Number(s): [id number] cc: MASON JOHNSON [place] [id number] Patient Name: MANISH ROOT MRN: [facility]:[id number] date: 1945 Sex: M Assigned Patient Location: [facility] Current Patient Location: [facility] Accession/Order Number: [id number] Exam Date: 10/13/2024 10:37 Report Date: 10/13/2024 10:38 At the request of: MASON JOHNSON Procedure: XR hip LT min 2V 2 views left plain film COMPARISON: None HISTORY: Left hip pain ACUTE FINDINGS: None DEGENERATIVE CHANGE: Mild joint space narrowing. Marginal spurring. Greater trochanter spurring. Suspected chondrocalcinosis. Subarticular cystic changes of superior acetabulum. SOFT TISSUE FINDINGS: Unremarkable JOINT EFFUSION: None POSTOP CHANGES: None BONY MINERALIZATION: Adequate XR/XR hip LT min 2V IMPRESSION: Moderate left hip degenerative changes. Impression dictated by: Eric Alcaraz M.D.10/13/2024 10:38 AM Dictation Location: [place] [address] Electronically authenticated by: [id number] Y Date: 10/13/2024 10:38 Dictated By: Eric Alcaraz D.O. Signed By: 10/13/24 1041 DD/ 1038 TD/TT: Raveler: [facility] Radiology Study observation (narrative) [facility] XR HIP LT MIN 2VOrdered By: Radiologist Radiology on 10-13-2024 [facility] [employer] Work Phone: No Panel Informationon 09-17 [facility] [employer] PSA, TOTALon 09-02-2024 PSA, TOTAL 1.15 ng/mL Normal < OR = 4.00 [facility] Comment on above: Order Comment: FASTI NG:YES FASTING: YES Result Comment: The total PSA value from this assay system is standardized against the WHO standard. The test result will be approximately 20% lower when compared to the equimolar-standardized total PSA (Soy Eneida). Comparison of serial PSA results should be interpreted with this fact in mind. This test was performed using the Siemens chemiluminescent method. Values obtained from different assay methods cannot be used interchangeably. PSA levels, regardless of value, should not be interpreted as absolute evidence of the presence or absence of disease. Performed By: #### 5 363 #### [employer] [address], [address] [place] [id number] Pin Worker: Maged Olson MD Laboratory - Hematology and Cell countson 08-31-2024 HbA1c (Bld) [Mass fraction] 6.9 % [facility] [email or web address] No Panel Informationon 08-31 [employer] No Panel Informationon 05-26 [employer] CNOVon 05-06-2024 CNOV Office Visit (RADTSA ) MANISH ROOT ([id number]) 1945 M Date Time Provider Department 05/06/24 3:00 PM Yordan FELIZ RADTSA During your visit today, [...] Lymph 1.00 - 4.00 k/uL 0.48 (L) Phelps% % 10.4 Abs Phelps <0.87 k/uL 0.32 Eosin% % 1.6 Abs [...] swelling RESPIRATORY: (more content not included)... Normal [facility] CNOVSPon 05-06-2024 OVS Visit (SP) Office (HEMASA) MANISH ROOT ([id number]) 1945 M Date Time Provider Department 05/06/24 3:20 PM JOHN ENGLAND During your visit today, we recorded the following information about you: Temperature Pulse Respiration Blood pressure 97.8 degrees 60/minute 18/minute 122/73 Weight Height 86.7 kg 1.669 m John England MD 05/09/2024 10:42 AM Signed NAME: Manish Root NO.: [id number] DATE OF SERVICE: May 06, 2024 (Jacquelyn) [...] Ca Stage 3 - 2/5 LN + [place] regimen on protocol Updated Visit, May 06, [...] Kidney function (more content not included)... Normal [facility] CBC W Auto Differential pane l (Bld)on 04-23-2024 Basophils (Bld) [#/Vol] 0.03 10*3/uL [facility] Differential cell count method Nom (Bld) Auto [facility] Eosinophils (Bld) [#/Vol] 0.06 10*3/uL [facility] Immature granulocytes (Bld) [#/Vol] [facility] Immature granulocytes/100 WBC (Bld) 0.6 % [facility] Lymphocytes (Bld) [#/Vol] 0.46 10*3/uL Low [facility] Monocytes (Bld) [#/Vol] 0.30 10*3/uL [facility] Neutrophils (Bld) [#/Vol] 2.59 10*3/uL [facility] Nucleated RBC (Bld) [#/Vol] [facility] Nucleated RBC/100 WBC (Bld) [Ratio] 0.0 % /100 WBC [facility] Platelet mean volume (Bld) [Entitic vol] 9.4 fL 9.0 - 12.7 fL [facility] Platelets (Bld) [#/Vol] 206 10*3/uL [facility] WBC (Bld) [#/Vol] 3.46 10*3/uL Low [facility] Basophils (Bld) [#/Vol] 0.03 10*3/uL Normal <0.11 [facility] Comment on above: Order Comment: Speci men Type: BLOOD SPECIMENOrdering Facility: [facility] Address: [address] [place] [address] Performed By: #### 5 7021-8 ####[facility] LABCLIA [id number] [place] [address] Basophils/100 WBC (Bld) 0.9 % Normal [facility] Comment on above: Order Comment: Speci men Type: BLOOD SPECIMENOrdering Facility: [facility] Address: [address] [place] [address] Performed By: #### 5 7021-8 ####[facility] LABCLIA [id number] [place] [address] Differential cell count method Nom (Bld) Auto Normal [facility] Comment on above: Order Comment: Speci men Type: BLOOD SPECIMENOrdering Facility: [facility] Address: [address] [place] [address] Performed By: #### 5 7021-8 ####[facility] LABCLIA [id number] [place] [address] Eosinophils (Bld) [#/Vol] 0.06 10*3/uL Normal <0.46 [facility] Comment on above: Order Comment: Speci men Type: BLOOD SPECIMENOrdering Facility: [facility] Address: [address] [place] [address] Performed By: #### 5 7021-8 ####[facility] LABCLIA [id number] [place] [address] Eosinophils/100 WBC (Bld) 1.7 % Normal [facility] Comment on above: Order Comment: Speci men Type: BLOOD SPECIMENOrdering Facility: [facility] Address: [address] [place] [address] Performed By: #### 5 7021-8 ####[facility] LABCLIA [id number] [place] [address] Erythrocyte distribution width (RBC) [Ratio] 14.4 % Normal 11.5-15.0 [facility] Comment on above: Order Comment: Speci men Type: BLOOD SPECIMENOrdering Facility: [facility] Address: [address] [place] [address] Performed By: #### 5 7021-8 ####[facility] LABCLIA [id number] [place] [address] Hematocrit (Bld) [Volume fraction] 38.4 % Low 39.0-51.0 [facility] Comment on above: Order Comment: Speci men Type: BLOOD SPECIMENOrdering Facility: [facility] Address: [address] [place] [address] Performed By: #### 5 7021-8 ####[facility] LABCLIA [id number] [place] [address] Hemoglobin (Bld) [Mass/Vol] 13.3 g/dL Normal 13.0-17.0 [facility] Comment on above: Order Comment: Speci men Type: BLOOD SPECIMENOrdering Facility: [facility] Address: [address] [place] [address] Performed By: #### 5 7021-8 ####[facility] LABCLIA [id number] [place] [address] Immature granulocytes (Bld) [#/Vol] 10*3/uL Normal <0.10 [facility] Comment on above: Order Comment: Speci men Type: BLOOD SPECIMENOrdering Facility: [facility] Address: [address] [place] [address] Performed By: #### 5 7021-8 ####[facility] LABCLIA [id number] [place] [address] Immature granulocytes/100 WBC (Bld) 0.6 % Normal [facility] Comment on above: Order Comment: Speci men Type: BLOOD SPECIMENOrdering Facility: [facility] Address: [address] [place] [address] Performed By: #### 5 7021-8 ####[facility] LABCLIA [id number] [place] [address] Lymphocytes (Bld) [#/Vol] 0.46 10*3/uL Low 1.00-4.00 [facility] Comment on above: Order Comment: Speci men Type: BLOOD SPECIMENOrdering Facility: [facility] Address: [address] [place] [address] Performed By: #### 5 7021-8 ####[facility] LABCLIA [id number] [place] [address] Lymphocytes/100 WBC (Bld) 13.3 % Normal [facility] Comment on above: Order Comment: Speci men Type: BLOOD SPECIMENOrdering Facility: [facility] Address: [address] [place] [address] Performed By: #### 5 7021-8 ####[facility] LABCLIA [id number] [place] [address] MCH (RBC) [Entitic mass] 31.9 pg Normal 26.0-34.0 [facility] Comment on above: Order Comment: Speci men Type: BLOOD SPECIMENOrdering Facility: [facility] Address: [address] [place] [address] Performed By: #### 5 7021-8 ####[facility] LABCLIA [id number] [place] [address] MCHC (RBC) [Mass/Vol] 34.6 g/dL Normal 30.5-36.0 [facility] Comment on above: Order Comment: Speci men Type: BLOOD SPECIMENOrdering Facility: [facility] Address: [address] [place] [address] Performed By: #### 5 7021-8 ####[facility] LABCLIA [id number] [place] [address] MCV (RBC) [Entitic vol] 92.1 fL Normal 80.0-100.0 [facility] Comment on above: Order Comment: Speci men Type: BLOOD SPECIMENOrdering Facility: [facility] Address: [address] [place] [address] Performed By: #### 5 7021-8 ####[facility] LABCLIA [id number] [place] [address] Monocytes (Bld) [#/Vol] 0.30 10*3/uL Normal <0.87 [facility] Comment on above: Order Comment: Speci men Type: BLOOD SPECIMENOrdering Facility: [facility] Address: [address] [place] [address] Performed By: #### 5 7021-8 ####[facility] LABCLIA [id number] [place] [address] Monocytes/100 WBC (Bld) 8.7 % Normal [facility] Comment on above: Order Comment: Speci men Type: BLOOD SPECIMENOrdering Facility: [facility] Address: [address] [place] [address] Performed By: #### 5 7021-8 ####[facility] LABCLIA [id number] [place] [address] Neutrophils (Bld) [#/Vol] 2.59 10*3/uL Normal 1.45-7.50 [facility] Comment on above: Order Comment: Speci men Type: BLOOD SPECIMENOrdering Facility: [facility] Address: [address] [place] [address] Performed By: #### 5 7021-8 ####[facility] LABCLIA [id number] [place] [address] Neutrophils/100 WBC (Bld) 74.8 % Normal [facility] Comment on above: Order Comment: Speci men Type: BLOOD SPECIMENOrdering Facility: [facility] Address: [address] [place] [address] Performed By: #### 5 7021-8 ####[facility] LABCLIA [id number] [place] [address] Nucleated RBC (Bld) [#/Vol] 10*3/uL Normal <0.01 [facility] Comment on above: Order Comment: Speci men Type: BLOOD SPECIMENOrdering Facility: [facility] Address: [address] [place] [address] Performed By: #### 5 7021-8 ####[facility] LABIA [id number] [place] [address] Nucleated RBC/100 WBC (Bld) [Ratio] 0.0 /100 WBC Normal [facility] Comment on above: Order Comment: Speci men Type: BLOOD SPECIMENOrdering Facility: [facility] Address: [address] [place] [address] Performed By: #### 5 7021-8 ####[facility] LABCLIA [id number] [place] [address] Platelet mean volume (Bld) [Entitic vol] 9.4 fL Normal 9.0-12.7 [facility] Comment on above: Order Comment: Speci men Type: BLOOD SPECIMENOrdering Facility: [facility] Address: [address] [place] [address] Performed By: #### 5 7021-8 ####[facility] LABCLIA [id number] [place] [address] Platelets (Bld) [#/Vol] 206 10*3/uL Normal 150-400 [facility] Comment on above: Order Comment: Speci men Type: BLOOD SPECIMENOrdering Facility: [facility] Address: [address] [place] [address] Performed By: #### 5 7021-8 ####[facility] LABCLIA [id number] [place] [address] RBC (Bld) [#/Vol] 4.17 10*6/uL Low 4.20-6.00 [facility] Comment on above: Order Comment: Speci men Type: BLOOD SPECIMENOrdering Facility: [facility] Address: [address] [place] [address] Performed By: #### 5 7021-8 ####[facility] LABCLIA [id number] [place] [address] WBC (Bld) [#/Vol] 3.46 10*3/uL Low 3.70-11.00 [facility] Comment on above: Order Comment: Speci men Type: BLOOD SPECIMENOrdering Facility: [facility] Address: [address] [place] [address] Performed By: #### 5 7021-8 ####[facility] LABCLIA [id number] [place] [address] [facility] CBC W AUTO DIFF BLDon [facility] BASOPHILS # BLD AUTO 0.03 [facility] DIFFERENTIAL METHOD BLD Auto [facility] EOSINOPHIL # BLD AUTO 0.06 [facility] LYMPHOCYTES # BLD AUTO 0.46 Low [facility] MONOCYTES # BLD AUTO 0.3 [facility] NEUTROPHILS # BLD AUTO 2.59 [facility] NRBC # BLD AUTO <0.01 [facility] NRBC/100 WBC BLD-RTO 0 /100 WBC [facility] PLATELET # BLD AUTO 206 [facility] PMV BLD AUTO 9.4 fL 9.0 - 12.7 fL [facility] WBC # BLD AUTO 3.46 Low [facility] [employer] IMM GRANULOCYTES # BLD AUTO <0.03 [facility] IMM GRANULOCYTES/LEUK NFR BLD AUTO 0.6 % [facility] Specimen Type: BLOOD SPECIMEN Ordering Facility: [facility] Address: [address] [place] [address] Original Ordering Provider: JOHNCARO ENGLAND [employer] CT CHEST W IVCONon CT CHEST W IVCON * * *Final Report* * * DATE OF EXAM: Apr 23 2024 9:58AM [facility] 0539 - CT CHEST W [...] any questions regarding this interpretation, please call [phone]. If you are unable to reach us at the number above, please feel free to contact [facility] e[employer] at [phone]. [id number] N Normal [facility] CT Chest W contrast [place] IMPRESSION: 1. [...] any questions regarding this interpretation, please call [phone]. If you are unable to reach us at the number above, please feel free to contact [facility] e[employer]iology at [phone]. DIVISION OF RADIOLOGY * * *Final Report* * * DATE OF EXAM: Apr 23 2024 9:58AM [facility] 0539 - CT CHEST W [...] No additional findings. DIVISION OF RADIOLOGY Provider, [facility] - 04/23/2024 * * *Final Report* * * DATE OF EXAM: Apr 23 2024 9:58AM [facility] 0539 - CT CHEST W [...] any questions regarding this interpretation, please call [phone]. If you are unable to reach us at the number above, please feel free to contact [facility] at [phone]. 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 [employer] (topogram) images: No additional findings. IMPRESSION: 1. [...] any questions regarding this interpretation, please call [phone]. If you are unable to reach us at the number above, please feel free to contact [facility]iology at [phone]. [id number] N Normal [facility] CT Neck W contrast [place] 10-1 IMPRESSION: 1. STABLE POSTTREATMENT CHANGES AT LEFT [...] any questions regarding this interpretation, please call [phone]. If you are unable to reach us at the number above, please feel free to contact [facility] at [phone]. 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 [employer] (topogram) images: No additional findings. 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 [employer] (topogram) images: No additional findings. IMPRESSION IMPRESSION: [...] any questions regarding this interpretation, please call [phone]. If you are unable to reach us at the number above, please feel free to contact [facility] eRadiology at [phone]. [facility] CT Neck W contrast IVOrdered By: [facility]cf Provider on 04-23-2024 [facility] Comprehensive metabolic 2000 panelOrdered By: Moustapha Calderon on 04-23-2024 Albumin [Mass/Vol] 4.2 g/dL 3.9 - 4.9 g/dL [facility] ALP [Catalytic activity/Vol] 48 U/L 38 - 113 U/L [facility] ALT [Catalytic activity/Vol] 14 U/L 10 - 54 U/L [facility] Anion gap [Moles/Vol] 8 mmol/L 8 - 15 mmol/L [facility] AST [Catalytic activity/Vol] 15 U/L 14 - 40 U/L [facility] Bilirubin [Mass/Vol] 0.5 mg/dL 0.2 - 1 .3 mg/dL [facility] Calcium [Mass/Vol] 9.5 mg/dL 8.5 - 10. 2 mg/dL [facility] Chloride [Moles/Vol] 103 mmol/L 98 - 10 7 mmol/L [facility] CO2 [Moles/Vol] 30 mmol/L 22 - 30 mmol/L [facility] Creatinine [Mass/Vol] 1.32 mg/dL High 0.73 - 1.22 mg/dL [facility] GFR/1.73 sq M.predicted among non-blacks MDRD (S/P/Bld) [Vol rate/Area] 55 mL/min/{1.73_m2} Low - PINF [facility] Comment on above: Estimated Glomerular Filtration Rate [...] 146 mg/dL High 74 - 99 mg/dL [facility] Comment on above: The [place] Diabete s Association (ADA) provides guidance for [...] Standards of Medical Care in Diabetes 2016, [place] Diabetes Association. Diabetes Care. 2016.39(Suppl 1). Interpretation and review of laboratory results Abnormal [facility] Potassium [Moles/Vol] 4.3 mmol/L 3.7 - 5.1 mmol/L [facility] Protein [Mass/Vol] 6.6 g/dL 6.3 - 8.0 g/dL [facility] Sodium [Moles/Vol] 141 mmol/L 136 - 144 mmol/L [facility] Urea nitrogen [Mass/Vol] 18 mg/dL 9 - 24 mg/dL [facility] Comprehensive metabolic 2000 panelon 04-23-2024 Albumin [Mass/Vol] 4.2 g/dL Normal 3.9-4.9 [facility] Comment on above: Order Comment: Speci men Type: BLOOD SPECIMENOrdering Facility: [facility] Address: [address] [place] [address] Performed By: #### 2 4323-8 ####[facility] LABCLIA [id number] [place] [address] ALP [Catalytic activity/Vol] 48 U/L Normal 38-113 [facility] Comment on above: Order Comment: Speci men Type: BLOOD SPECIMENOrdering Facility: [facility] Address: [address] [place] [address] Performed By: #### 2 4323-8 ####[facility] LABIA [id number] [place] [address] ALT [Catalytic activity/Vol] 14 U/L Normal 10-54 [facility] Comment on above: Order Comment: Speci men Type: BLOOD SPECIMENOrdering Facility: [facility] Address: [address] [place] [address] Performed By: #### 2 4323-8 ####[facility] LABCLIA [id number] [place] [address] Anion gap [Moles/Vol] 8 mmol/L Normal 8-15 [facility] Comment on above: Order Comment: Speci men Type: BLOOD SPECIMENOrdering Facility: [facility] Address: [address] [place] [address] Performed By: #### 2 4323-8 ####[facility] LABCLIA [id number] [place] [address] AST [Catalytic activity/Vol] 15 U/L Normal 14-40 [facility] Comment on above: Order Comment: Speci men Type: BLOOD SPECIMENOrdering Facility: [facility] Address: [address] [place] [address] Performed By: #### 2 4323-8 ####[facility] LABCLIA [id number] [place] [address] Bilirubin [Mass/Vol] 0.5 mg/dL Normal 0.2-1.3 [facility] Comment on above: Order Comment: Speci men Type: BLOOD SPECIMENOrdering Facility: [facility] Address: [address] [place] [address] Performed By: #### 2 4323-8 ####[facility] LABCLIA [id number] [place] [address] Calcium [Mass/Vol] 9.5 mg/dL Normal 8.5-10.2 [facility] Comment on above: Order Comment: Speci men Type: BLOOD SPECIMENOrdering Facility: [facility] Address: [address] [place] [address] Performed By: #### 2 4323-8 ####[facility] LABCLIA [id number] [place] [address] Chloride [Moles/Vol] 103 mmol/L Normal 98-107 [facility] Comment on above: Order Comment: Speci men Type: BLOOD SPECIMENOrdering Facility: [facility] Address: [address] [place] [address] Performed By: #### 2 4323-8 ####[facility] LABCLIA [id number] [place] [address] CO2 [Moles/Vol] 30 mmol/L Normal 22-30 [facility] Comment on above: Order Comment: Speci men Type: BLOOD SPECIMENOrdering Facility: [facility] Address: [address] [place] [address] Performed By: #### 2 4323-8 ####[facility] LABCLIA [id number] [place] [address] Creatinine [Mass/Vol] 1.32 mg/dL High 0.73-1.22 [facility] Comment on above: Order Comment: Speci men Type: BLOOD SPECIMENOrdering Facility: [facility] Address: [address] [place] [address] Performed By: #### 2 4323-8 ####[facility] LABCLIA [id number] [place] [address] Creatinine and Glomerular filtration rate.predicted panel (S/P/Bld) 55 mL/min/1.73m??? Low >=60 [facility] Comment on above: Order Comment: Speci men Type: BLOOD SPECIMENOrdering Facility: [facility] Address: [address] [place] [address] Result Comment: Felicity mated Glomerular Filtration Rate [...] GFR. Performed By: #### 2 4323-8 ####[facility] LABCLIA [id number] [place] [address] Glucose [Mass/Vol] 146 mg/dL High 74-99 [facility] Comment on above: Order Comment: Speci men Type: BLOOD SPECIMENOrdering Facility: [facility] Address: [address] [place] [address] Result Comment: The [place] Diabetes Association (ADA) provides guidance for cutoff [...] Standards of Medical Care in Diabetes 2016, [place] Diabetes Association. Diabetes Care. 2016.39(Suppl 1). Performed By: #### 2 4323-8 ####[facility] LABCLIA [id number] [place] [address] Potassium [Moles/Vol] 4.3 mmol/L Normal 3.7-5.1 [facility] Comment on above: Order Comment: Speci men Type: BLOOD SPECIMENOrdering Facility: [facility] Address: [address] [place] [address] Performed By: #### 2 4323-8 ####[facility] LABCLIA [id number] [place] [address] Protein [Mass/Vol] 6.6 g/dL Normal 6.3-8.0 [facility] Comment on above: Order Comment: Speci men Type: BLOOD SPECIMENOrdering Facility: [facility] Address: [address] [place] [address] Performed By: #### 2 4323-8 ####[facility] LABCLIA [id number] [place] [address] Sodium [Moles/Vol] 141 mmol/L Normal 136-144 [facility] Comment on above: Order Comment: Speci men Type: BLOOD SPECIMENOrdering Facility: [facility] Address: [address] [place] [address] Performed By: #### 2 4323-8 ####[facility] LABCLIA [id number] [place] [address] Urea nitrogen [Mass/Vol] 18 mg/dL Normal 9-24 [facility] Comment on above: Order Comment: Speci men Type: BLOOD SPECIMENOrdering Facility: [facility] Address: [address] [place] [address] Performed By: #### 2 4323-8 ####[facility] LABCLIA [id number] [place] [address] FERRITINon 04-23-2024 Ferritin [Mass/Vol] 158.0 ng/mL 30.3 - 5 65.7 ng/mL [facility] FOLATE, SERUMon 04-23-2024 Folate [Mass/Vol] 12.1 ng/mL 4.7 - PINF ng/mL [facility] Ferritin SerPl-mCncon 2023 Ferritin [Mass/Vol] 158.0 ng/mL Normal 30.3-565.7 [facility] Comment on above: Order Comment: Speci men Type: BLOOD SPECIMENOrdering Facility: [facility] Address: [address] [place] [address] Performed By: #### 2 132-9, 2276-4, 2284-8, 02639-0 ####[facility] LABCLIA [id number] [place] [address] [place] Folate SerPl-mCncon 04-23-20 Folate [Mass/Vol] 12.1 ng/mL Normal >4.7 [facility] Comment on above: Order Comment: Speci men Type: BLOOD SPECIMENOrdering Facility: [facility] Address: [address] [place] [address] Performed By: #### 2 132-9, 2276-4, 2284-8, 05377-2 ####[facility] LABCLIA [id number] [place] [address] [place] Iron and Iron binding capaci ty panelon 04-23-2024 Interpretation and review of laboratory results Normal [facility] Iron [Mass/Vol] 78 ug/dL 41 - 186 ug/dL [facility] Iron binding capacity [Mass/Vol] 300 ug/dL 232 - 386 ug/dL [facility] Iron/TIBC [Molar ratio] 26.0 % 15.0 - 57.0 % [facility] Iron [Mass/Vol] 78 ug/dL Normal 41-186 [facility] Comment on above: Order Comment: Speci men Type: BLOOD SPECIMENOrdering Facility: [facility] Address: [address] [place], [place] [address] Performed By: #### 2 132-9, 2276-4, 4-8, 80251-9 ####[facility] LABCLIA [id number] [place] [id number] [place] Iron binding capacity [Mass/Vol] 300 ug/dL Normal 232-386 [facility] Comment on above: Order Comment: Speci men Type: BLOOD SPECIMENOrdering Facility: [facility] Address: [address] [place] [address] Performed By: #### 2 132-9, 2276-4, 2283-8, 91422-1 ####[facility] LABCLIA [id number] [place] [id number] [place] Iron/TIBC [Molar ratio] 26.0 % Normal 15.0-57.0 [facility] Comment on above: Order Comment: Speci men Type: BLOOD SPECIMENOrdering Facility: [facility] Address: [address] [place] [address] Performed By: #### 2 132-9, 2276-4, 4-8, 43287-0 ####[facility] LABCLIA [id number] [place] [id number] [place] Laboratory - Hematology and Cell countson 04-23-2024 Basophils/100 WBC (Bld) 0.9 % [facility] Eosinophils/100 WBC (Bld) 1.7 % [facility] Erythrocyte distribution width (RBC) [Ratio] 14.4 % 11.5 - 15.0 % [facility] Hematocrit (Bld) [Volume fraction] 38.4 % Low 39.0 - 51.0 % [facility] Hem[facility] (Bld) [Mass/Vol] 13.3 g/dL 13.0 - 17.0 g/dL [facility] Lymphocytes/100 WBC (Bld) 13.3 % [facility] MCH (RBC) [Entitic mass] 31.9 pg 26.0 - 34.0 pg [facility] MCHC (RBC) [Mass/Vol] 34.6 g/dL 30.5 - 36.0 g/dL [facility] MCV (RBC) [Entitic vol] 92.1 fL 80.0 - 100.0 fL [facility] Monocytes/100 WBC (Bld) 8.7 % [facility] Neutrophils/100 WBC (Bld) 74.8 % [facility] RBC (Bld) [#/Vol] 4.17 10*6/uL Low 4.20 - 6.0 0 m/uL [facility] No Panel Informationon 04-23 Interpretation and review of laboratory results Normal [facility] Interpretation and review of laboratory results Abnormal [facility] (narrative) [facility] VITAMIN B12on 04-23-2024 Cobalamin (Vitamin B12) [Mass/Vol] 349 pg/mL 232 - 1245 pg/mL [facility] Vit B12 SerPl-mCncon 024 Cobalamin (Vitamin B12) [Mass/Vol] 349 pg/mL Normal 232-1245 [facility] Comment on above: Order Comment: Speci men Type: BLOOD SPECIMENOrdering Facility: [facility] Address: [address] [place] [address] Performed By: #### 2 132-9, 2276-4, 2284-8, 95356-6 ####[facility] LABCLIA [id number] [place] [address] [place] ALL LIPID PROFILE (FASTING)o n 03-04-2024 CHOL HDL RATIO 4.1 [facility] Comment on above: 3.3 - 4.4 LOW RISK 4.4 - 7.1 AVERAGE RISK 7.1 - 11.0 MODERATE RISK >11.0 HIGH RISK Cholesterol [Mass/Vol] 176 mg/dL NINF - 200 mg/dL [facility] Cholesterol in HDL [Mass/Vol] 43 mg/dL 40 - 60 mg/dL [facility] Comment on above: > or =60 mg/dl - LOW CARDIOVASCULAR RISK <40 mg/dl - HIGH CARDIOVASCULAR RISK Magnesium [Mass/Vol] 115.8 mg/dL [facility] Comment on above: <100 mg/dl OPTIMAL 100-129 mg/dl NEAR OR ABOVE OPTIMAL 130-159 mg/dl BORDERLINE HIGH 160-189 mg/dl HIGH >190 mg/dl VERY HIGH Magnesium [Mass/Vol] 17.2 mg/dL [facility] Triglyceride [Mass/Vol] 86 mg/dL NINF - 150 mg/dL [facility] Chest W contrast [place] IMPRESSION: 1. [...] any questions regarding this interpretation, please call [phone]. If you are unable to reach us at the number above, please feel free to contact [facility] at [phone]. DIVISION OF RADIOLOGY * * *Final Report* * * DATE OF EXAM: Oct 16 2023 12:43PM [facility] 0539 - CT CHEST W [...] No additional findings. DIVISION OF RADIOLOGY Provider, [facility] - 10/17/2023 * * *Final Report* * * DATE OF EXAM: Oct 16 2023 12:43PM [facility] 0539 - CT CHEST W [...] any questions regarding this interpretation, please call [phone]. If you are unable to reach us at the number above, please feel free to contact [facility] eRadiology at [phone]. [facility] CT Chest W contrast IVOrdere d By: Ccf Provider on 10-17-2023 [facility] CBC W Auto Differential pane l (Bld)on 10-16-2023 Basophils (Bld) [#/Vol] [facility] Basophils/100 WBC (Bld) 0.6 % [facility] Differential cell count method Nom (Bld) Auto [facility] Eosinophils (Bld) [#/Vol] 0.05 10*3/uL [facility] Eosinophils/100 WBC (Bld) 1.6 % [facility] Erythrocyte distribution width (RBC) [Ratio] 13.8 % 11.5 - 15.0 % [facility] Hematocrit (Bld) [Volume fraction] 37.9 % Low 39.0 - 51.0 % [facility] Hemoglobin (Bld) [Mass/Vol] 12.6 g/dL Low 13.0 - 17.0 g/dL [facility] Immature granulocytes (Bld) [#/Vol] [facility] Immature granulocytes/100 WBC (Bld) 0.6 % [facility] Interpretation and review of laboratory results Abnormal [facility] Lymphocytes (Bld) [#/Vol] 0.48 10*3/uL Low [facility] Lymphocytes/100 WBC (Bld) 15.6 % [facility] MCH (RBC) [Entitic mass] 30.1 pg 26.0 - 34.0 pg [facility] MCHC (RBC) [Mass/Vol] 33.2 g/dL 30.5 - 36.0 g/dL [facility] MCV (RBC) [Entitic vol] 90.7 fL 80.0 - 100.0 fL [facility] Monocytes (Bld) [#/Vol] 0.32 10*3/uL [facility] Monocytes/100 WBC (Bld) 10.4 % [facility] Neutrophils (Bld) [#/Vol] 2.19 10*3/uL [facility] Neutrophils/100 WBC (Bld) 71.2 % [facility] Nucleated RBC (Bld) [#/Vol] [facility] Nucleated RBC/100 WBC (Bld) [Ratio] 0.0 % /100 WBC [facility] Platelet mean volume (Bld) [Entitic vol] 9.1 fL 9.0 - 12.7 fL [facility] Platelets (Bld) [#/Vol] 183 10*3/uL [facility] RBC (Bld) [#/Vol] 4.18 10*6/uL Low 4.20 - 6.0 0 m/uL [facility] WBC (Bld) [#/Vol] 3.08 10*3/uL Low [facility] CT Neck W contrast [place] 04-1 IMPRESSION: [...] any questions regarding this interpretation, please call [phone]. If you are unable to reach us at the number above, please feel free to contact [facility] eRadiology at [phone]. DIVISION OF RADIOLOGY * * *Final Report* * * DATE OF EXAM: Oct 16 2023 12:43PM [facility] 0013 - CT NECK SOFT [...] the intrathoracic contents. DIVISION OF RADIOLOGY Provider, [facility] - 10/16/2023 * * *Final Report* * * DATE OF EXAM: Oct 16 2023 12:43PM [facility] 0013 - CT NECK SOFT [...] any questions regarding this interpretation, please call [phone]. If you are unable to reach us at the number above, please feel free to contact [facility] eRadiology at [phone]. [facility] Comprehensive metabolic 2000 panelOrdered By: Moustapha Calderon on 10-16-2023 Albumin [Mass/Vol] 4.4 g/dL 3.9 - 4.9 g/dL [facility] ALP [Catalytic activity/Vol] 48 U/L 38 - 113 U/L [facility] ALT [Catalytic activity/Vol] 13 U/L 10 - 54 U/L [facility] Anion gap [Moles/Vol] 11 mmol/L 9 - 18 mmol/L [facility] AST [Catalytic activity/Vol] 15 U/L 14 - 40 U/L [facility] Bilirubin [Mass/Vol] 0.5 mg/dL 0.2 - 1 .3 mg/dL [facility] Calcium [Mass/Vol] 9.7 mg/dL 8.5 - 10. 2 mg/dL [facility] Chloride [Moles/Vol] 105 mmol/L 97 - 10 5 mmol/L [facility] CO2 [Moles/Vol] 26 mmol/L 22 - 30 mmol/L [facility] Creatinine [Mass/Vol] 1.34 mg/dL High 0.73 - 1.22 mg/dL [facility] GFR/1.73 sq M.predicted among non-blacks MDRD (S/P/Bld) [Vol rate/Area] 54 mL/min/{1.73_m2} Low - PINF [facility] Comment on above: Estimated Glomerular Filtration Rate [...] 135 mg/dL High 74 - 99 mg/dL [facility] Comment on above: The [place] Diabete s Association (ADA) provides guidance for [...] Standards of Medical Care in Diabetes 2016, [place] Diabetes Association. Diabetes Care. 2016.39(Suppl 1). Interpretation and review of laboratory results Abnormal [facility] Potassium [Moles/Vol] 4.5 mmol/L 3.7 - 5.1 mmol/L [facility] Protein [Mass/Vol] 6.7 g/dL 6.3 - 8.0 g/dL [facility] Sodium [Moles/Vol] 142 mmol/L 136 - 144 mmol/L [facility] Urea nitrogen [Mass/Vol] 22 mg/dL 9 - 24 mg/dL [facility] No Panel Informationon 10-15 Radiology Study observation (narrative) [facility] CT Chest W contrast [place] IMPRESSION: 1. [...] any questions regarding this interpretation, please call [phone]. If you are unable to reach us at the number above, please feel free to contact [facility] eRadiology at [phone]. DIVISION OF RADIOLOGY * * *Final Report* * * DATE OF EXAM: Jun 12 2023 8:15AM [facility] 0539 - CT CHEST W [...] noted are nonspecific noncalcified pulmonary nodules, with direct marketing representative larger examples detailed as follows on [...] No abnormality in the imaged upper abdomen. Terminal Block Assembler (topogram) images: No additional findings. DIVISION OF RADIOLOGY Provider, [facility] - 06/12/2023 * * *Final Report* * * DATE OF EXAM: Jun 12 2023 8:15AM [facility] 0539 - CT CHEST W [...] noted are nonspecific noncalcified pulmonary nodules, with direct marketing representative larger examples detailed as follows on [...] No abnormality in the imaged upper abdomen. Terminal Block Assembler (topogram) images: No additional findings. IMPRESSION IMPRESSION: [...] any questions regarding this interpretation, please call [phone]. If you are unable to reach us at the number above, please feel free to contact [facility] eRadiology at [phone]. [facility] Radiology Study observation (narrative) [facility] CT Chest W contrast IVOrdere d By: Ccf Provider on 06-12-[address] [facility] [address] Chest W contrast [place] IMPRESSION: 1. [...] any questions regarding this interpretation, please call [phone]. If you are unable to reach us at the number above, please feel free to contact [facility] at [phone]. DIVISION OF RADIOLOGY * * *Final Report* * * DATE OF EXAM: Mar 14 2023 2:26PM [facility] 0539 - CT CHEST W [...] No abnormality in the imaged upper abdomen. Terminal Block Assembler (topogram) images: No additional findings. DIVISION OF RADIOLOGY Provider, [facility] - 03/15/2023 * * *Final Report* * * DATE OF EXAM: Mar 14 2023 2:26PM [facility] 0539 - CT CHEST W [...] No abnormality in the imaged upper abdomen. Terminal Block Assembler (topogram) images: No additional findings. IMPRESSION IMPRESSION: [...] any questions regarding this interpretation, please call [phone]. If you are unable to reach us at the number above, please feel free to contact [facility] eRadiology at [phone]. [facility] CT Chest W contrast IVOrdere d By: Ccf Provider on 03-15-[address] [facility] [address] Chest W contrast [place] Radiology Study observation (narrative) [facility] GLUCOSE, BLOOD (POC)on 01-29 Glucose [Mass/Vol] 124 mg/dL Abnormal 74 - 99 mg/dL [facility] Comment on above: Location:[facility], [address] [place] [address] , [place], [place], [facility] The Accu-Chek Inform II glucose meter [...] Interpretation and review of laboratory results Abnormal [facility] PET+CT Guidance for localiza tion of [...] any questions regarding this interpretation, please call [phone]. If you are unable to reach us at the number above, please feel free to contact [facility] at [phone]. DIVISION OF RADIOLOGY * * *Final Report* [...] SKELETON: There are no hypermetabolic osseous lesions. Terminal Block Assembler (topogram) images:No additional findings. -- DIVISION OF RADIOLOGY Provider, Roxanne Menardjose marie Bradford - 01/29/2023 * * *Final Report* * [...] SKELETON: There are no hypermetabolic osseous lesions. Terminal Block Assembler (topogram) images:No additional findings. -- IMPRESSION IMPRESSION: [...] any questions regarding this interpretation, please call [phone]. If you are unable to reach us at the number above, please feel free to contact [facility] eRadiology at [phone]. [facility] Radiology Study observation (narrative) [facility] PET+CT Guidance for localiza tion of tumor of Skull base to mid-thigh-- W [id number] IVOrdered By: Ccf Provider on 01-29-2023 [facility] Comprehensive metabolic 2000 panelon 10-08-2022 Albumin [Mass/Vol] 4.1 g/dL 3.9 - 4.9 g/dL [facility] ALP [Catalytic activity/Vol] 60 U/L 38 - 113 U/L [facility] ALT [Catalytic activity/Vol] 27 U/L 10 - 54 U/L [facility] Anion gap [Moles/Vol] 10 mmol/L 9 - 18 mmol/L [facility] AST [Catalytic activity/Vol] 23 U/L 14 - 40 U/L [facility] Bilirubin [Mass/Vol] 0.5 mg/dL 0.2 - 1 .3 mg/dL [facility] Calcium [Mass/Vol] 9.5 mg/dL 8.5 - 10. 2 mg/dL [facility] Chloride [Moles/Vol] 96 mmol/L Low 97 - 10 5 mmol/L [facility] CO2 [Moles/Vol] 29 mmol/L 22 - 30 mmol/L [facility] Creatinine [Mass/Vol] 0.96 mg/dL 0.73 - 1.22 mg/dL [facility] Estimated Glomerular Filtration Rate 81 mL/min/1.73m >=60 mL/min/1.73m [facility] Glucose [Mass/Vol] 105 mg/dL High 74 - 99 mg/dL [facility] Potassium [Moles/Vol] 4.2 mmol/L 3.7 - 5.1 mmol/L [facility] Protein [Mass/Vol] 6.8 g/dL 6.3 - 8.0 g/dL [facility] Sodium [Moles/Vol] 135 mmol/L Low 136 - 144 mmol/L [facility] Urea nitrogen [Mass/Vol] 22 mg/dL 9 - 24 mg/dL [facility] CBC W Auto Differential pane l (Bld)on 10-01-2022 Basophils (Bld) [#/Vol] <0.11 k/uL [facility] Basophils/100 WBC (Bld) 0.4 % [facility] Differential cell count method Nom (Bld) Auto [facility] Eosinophils (Bld) [#/Vol] 0.03 10*3/uL <0.46 k/uL [facility] Eosinophils/100 WBC (Bld) 1.3 % [facility] Erythrocyte distribution width (RBC) [Ratio] 13.2 % 11.5 - 15.0 % [facility] Hematocrit (Bld) [Volume fraction] 36.2 % Low 39.0 - 51.0 % [facility] Hemoglobin (Bld) [Mass/Vol] 12.3 g/dL Low 13.0 - 17.0 g/dL [facility] Immature granulocytes (Bld) [#/Vol] <0.10 k/uL [facility] Immature granulocytes/100 WBC (Bld) 0.4 % [facility] Lymphocytes (Bld) [#/Vol] 0.27 10*3/uL Low 1.00 - 4.00 k/uL [facility] Lymphocytes/100 WBC (Bld) 12.0 % [facility] MCH (RBC) [Entitic mass] 30.3 pg 26.0 - 34.0 pg [facility] MCHC (RBC) [Mass/Vol] 34.0 g/dL 30.5 - 36.0 g/dL [facility] MCV (RBC) [Entitic vol] 89.2 fL 80.0 - 100.0 fL [facility] Monocytes (Bld) [#/Vol] 0.23 10*3/uL <0.87 k/uL [facility] Monocytes/100 WBC (Bld) 10.2 % [facility] Neutrophils (Bld) [#/Vol] 1.70 10*3/uL 1.45 - 7.50 k/uL [facility] Neutrophils/100 WBC (Bld) 75.7 % [facility] Nucleated RBC (Bld) [#/Vol] <0.01 k/uL [facility] Nucleated RBC/100 WBC (Bld) [Ratio] 0.0 /100 WBC [facility] Platelet mean volume (Bld) [Entitic vol] 9.5 fL 9.0 - 12.7 fL [facility] Platelets (Bld) [#/Vol] 97 10*3/uL Low 150 - 400 k/uL [facility] RBC (Bld) [#/Vol] 4.06 10*6/uL Low 4.20 - 6.0 0 m/uL [facility] WBC (Bld) [#/Vol] 2.25 10*3/uL Low 3.70 - 11. 00 k/uL [facility] Comprehensive metabolic 2000 panelon 10-01-2022 Albumin [Mass/Vol] 4.2 g/dL 3.9 - 4.9 g/dL [facility] ALP [Catalytic activity/Vol] 69 U/L 38 - 113 U/L [facility] ALT [Catalytic activity/Vol] 21 U/L 10 - 54 U/L [facility] Anion gap [Moles/Vol] 11 mmol/L 9 - 18 mmol/L [facility] AST [Catalytic activity/Vol] 14 U/L 14 - 40 U/L [facility] Bilirubin [Mass/Vol] 0.6 mg/dL 0.2 - 1 .3 mg/dL [facility] Calcium [Mass/Vol] 9.7 mg/dL 8.5 - 10. 2 mg/dL [facility] Chloride [Moles/Vol] 99 mmol/L 97 - 10 5 mmol/L [facility] CO2 [Moles/Vol] 26 mmol/L 22 - 30 mmol/L [facility] Creatinine [Mass/Vol] 0.94 mg/dL 0.73 - 1.22 mg/dL [facility] Estimated Glomerular Filtration Rate 83 mL/min/1.73m >=60 mL/min/1.73m [facility] Glucose [Mass/Vol] 119 mg/dL High 74 - 99 mg/dL [facility] Potassium [Moles/Vol] 4.1 mmol/L 3.7 - 5.1 mmol/L [facility] Protein [Mass/Vol] 6.7 g/dL 6.3 - 8.0 g/dL [facility] Sodium [Moles/Vol] 136 mmol/L 136 - 144 mmol/L [facility] Urea nitrogen [Mass/Vol] 20 mg/dL 9 - 24 mg/dL [facility] CBC W Auto Differential pane l (Bld)on 09-17-2022 Basophils (Bld) [#/Vol] <0.11 k/uL [facility] Basophils/100 WBC (Bld) 0.2 % [facility] Differential cell count method Nom (Bld) Auto [facility] Eosinophils (Bld) [#/Vol] 0.04 10*3/uL <0.46 k/uL [facility] Eosinophils/100 WBC (Bld) 0.8 % [facility] Erythrocyte distribution width (RBC) [Ratio] 13.1 % 11.5 - 15.0 % [facility] Hematocrit (Bld) [Volume fraction] 39.8 % 39.0 - 51.0 % [facility] Hemoglobin (Bld) [Mass/Vol] 13.4 g/dL 13.0 - 17.0 g/dL [facility] Immature granulocytes (Bld) [#/Vol] <0.10 k/uL [facility] Immature granulocytes/100 WBC (Bld) 0.4 % [facility] Lymphocytes (Bld) [#/Vol] 0.40 10*3/uL Low 1.00 - 4.00 k/uL [facility] Lymphocytes/100 WBC (Bld) 7.8 % [facility] MCH (RBC) [Entitic mass] 30.3 pg 26.0 - 34.0 pg [facility] MCHC (RBC) [Mass/Vol] 33.7 g/dL 30.5 - 36.0 g/dL [facility] MCV (RBC) [Entitic vol] 90.0 fL 80.0 - 100.0 fL [facility] Monocytes (Bld) [#/Vol] 0.34 10*3/uL <0.87 k/uL [facility] Monocytes/100 WBC (Bld) 6.6 % [facility] Neutrophils (Bld) [#/Vol] 4.31 10*3/uL 1.45 - 7.50 k/uL [facility] Neutrophils/100 WBC (Bld) 84.2 % [facility] Nucleated RBC (Bld) [#/Vol] <0.01 k/uL [facility] Nucleated RBC/100 WBC (Bld) [Ratio] 0.0 /100 WBC [facility] Platelet mean volume (Bld) [Entitic vol] 9.4 fL 9.0 - 12.7 fL [facility] Platelets (Bld) [#/Vol] 198 10*3/uL 150 - 400 k/uL [facility] RBC (Bld) [#/Vol] 4.42 10*6/uL 4.20 - 6.0 0 m/uL [facility] WBC (Bld) [#/Vol] 5.12 10*3/uL 3.70 - 11. 00 k/uL [facility] Comprehensive metabolic 2000 panelon 09-17-2022 Albumin [Mass/Vol] 4.4 g/dL 3.9 - 4.9 g/dL [facility] ALP [Catalytic activity/Vol] 70 U/L 38 - 113 U/L [facility] ALT [Catalytic activity/Vol] 22 U/L 10 - 54 U/L [facility] Anion gap [Moles/Vol] 8 mmol/L Low 9 - 18 mmol/L [facility] AST [Catalytic activity/Vol] 15 U/L 14 - 40 U/L [facility] Bilirubin [Mass/Vol] 0.4 mg/dL 0.2 - 1 .3 mg/dL [facility] Calcium [Mass/Vol] 9.8 mg/dL 8.5 - 10. 2 mg/dL [facility] Chloride [Moles/Vol] 99 mmol/L 97 - 10 5 mmol/L [facility] CO2 [Moles/Vol] 28 mmol/L 22 - 30 mmol/L [facility] Creatinine [Mass/Vol] 0.83 mg/dL 0.73 - 1.22 mg/dL [facility] Estimated Glomerular Filtration Rate 90 mL/min/1.73m >=60 mL/min/1.73m [facility] Glucose [Mass/Vol] 125 mg/dL High 74 - 99 mg/dL [facility] Potassium [Moles/Vol] 4.1 mmol/L 3.7 - 5.1 mmol/L [facility] Protein [Mass/Vol] 6.8 g/dL 6.3 - 8.0 g/dL [facility] Sodium [Moles/Vol] 135 mmol/L Low 136 - 144 mmol/L [facility] Urea nitrogen [Mass/Vol] 28 mg/dL High 9 - 24 mg/dL [facility] PET+CT Guidance for localiza tion [...] any questions regarding this interpretation, please call [phone]. If you are unable to reach us at the number above, please feel free to contact [facility] eRadiology at [phone]. DIVISION OF RADIOLOGY * * *Final Report* [...] age-related degenerative changes. No destructive osseous lesions. Terminal Block Assembler (topogram) images: No additional findings. DIVISION OF RADIOLOGY Provider, Roxanne Gladis [facility] - 08/28/2022 * * *Final Report* * [...] age-related degenerative changes. No destructive osseous lesions. Terminal Block Assembler (topogram) images: No additional findings. IMPRESSION IMPRESSION: [...] any questions regarding this interpretation, please call [phone]. If you are unable to reach us at the number above, please feel free to contact [facility] eRadiology at [phone]. [facility] PET+CT Guidance for localiza tion of tumor of Skull base to mid-thigh-- W 18F-FDG IVOrdered By: [facility] Provider on 08-28-2022 [facility] GLUCOSE, BLOOD (POC)on 08-27 Glucose [Mass/Vol] 137 mg/dL Abnormal 74 - 99 mg/dL [facility] Comment on above: Location:[facility], [address] [place] [address] , [place], [place], [address] The Accu-Chek Inform II glucose meter has [...] Interpretation and review of laboratory results Abnormal [facility] PET+CT Guidance for localiza tion of tumor of Skull base to mid-thigh-- W 18F-FDG [place] 08-27-2022 Radiology Study observation (narrative) [facility] CBC W Auto Differential pane l (Bld)on 08-23-2022 Basophils (Bld) [#/Vol] 0.05 10*3/uL <0.11 k/uL [facility] Basophils/100 WBC (Bld) 0.8 % [facility] Differential cell count method Nom (Bld) Auto [facility] Eosinophils (Bld) [#/Vol] 0.05 10*3/uL <0.46 k/uL [facility] Eosinophils/100 WBC (Bld) 0.8 % [facility] Erythrocyte distribution width (RBC) [Ratio] 13.2 % 11.5 - 15.0 % [facility] Hematocrit (Bld) [Volume fraction] 43.8 % 39.0 - 51.0 % [facility] Hemoglobin (Bld) [Mass/Vol] 14.7 g/dL 13.0 - 17.0 g/dL [facility] Immature granulocytes (Bld) [#/Vol] <0.10 k/uL [facility] Immature granulocytes/100 WBC (Bld) 0.3 % [facility] Lymphocytes (Bld) [#/Vol] 1.55 10*3/uL 1.00 - 4.00 k/uL [facility] Lymphocytes/100 WBC (Bld) 25.7 % [facility] MCH (RBC) [Entitic mass] 30.6 pg 26.0 - 34.0 pg [facility] MCHC (RBC) [Mass/Vol] 33.6 g/dL 30.5 - 36.0 g/dL [facility] MCV (RBC) [Entitic vol] 91.3 fL 80.0 - 100.0 fL [facility] Monocytes (Bld) [#/Vol] 0.51 10*3/uL <0.87 k/uL [facility] Monocytes/100 WBC (Bld) 8.5 % [facility] Neutrophils (Bld) [#/Vol] 3.85 10*3/uL 1.45 - 7.50 k/uL [facility] Neutrophils/100 WBC (Bld) 63.9 % [facility] Nucleated RBC (Bld) [#/Vol] <0.01 k/uL [facility] Nucleated RBC/100 WBC (Bld) [Ratio] 0.0 /100 WBC [facility] Platelet mean volume (Bld) [Entitic vol] 9.4 fL 9.0 - 12.7 fL [facility] Platelets (Bld) [#/Vol] 340 10*3/uL 150 - 400 k/uL [facility] RBC (Bld) [#/Vol] 4.80 10*6/uL 4.20 - 6.0 0 m/uL [facility] WBC (Bld) [#/Vol] 6.03 10*3/uL 3.70 - 11. 00 k/uL [facility] Comprehensive metabolic 2000 panelon 08-23-2022 Albumin [Mass/Vol] 4.6 g/dL 3.9 - 4.9 g/dL [facility] ALP [Catalytic activity/Vol] 66 U/L 38 - 113 U/L [facility] ALT [Catalytic activity/Vol] 16 U/L 10 - 54 U/L [facility] Anion gap [Moles/Vol] 8 mmol/L Low 9 - 18 mmol/L [facility] AST [Catalytic activity/Vol] 19 U/L 14 - 40 U/L [facility] Bilirubin [Mass/Vol] 0.5 mg/dL 0.2 - 1 .3 mg/dL [facility] Calcium [Mass/Vol] 10.0 mg/dL 8.5 - 10. 2 mg/dL [facility] Chloride [Moles/Vol] 102 mmol/L 97 - 10 5 mmol/L [facility] CO2 [Moles/Vol] 30 mmol/L 22 - 30 mmol/L [facility] Creatinine [Mass/Vol] 0.97 mg/dL 0.73 - 1.22 mg/dL [facility] Estimated Glomerular Filtration Rate 80 mL/min/1.73m >=60 mL/min/1.73m [facility] Glucose [Mass/Vol] 101 mg/dL High 74 - 99 mg/dL [facility] Potassium [Moles/Vol] 4.5 mmol/L 3.7 - 5.1 mmol/L [facility] Protein [Mass/Vol] 7.5 g/dL 6.3 - 8.0 g/dL [facility] Sodium [Moles/Vol] 140 mmol/L 136 - 144 mmol/L [facility] Urea nitrogen [Mass/Vol] 18 mg/dL 9 - 24 mg/dL [facility] POINT OF CARE GLUCOSEon 07-09 Glucose [Mass/Vol] 149 mg/dL Critically high 74-[address] [facility] Comment on above: Performed By: #### P OCGLUC #### [facility] [address] [address] [address] 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 Correction, due 07/18/2025. Normal [facility] CBC AUTO DIFFon 07-27-2022 BASO # 0.0 103/ul Normal 0.0-0.1 [facility] Comment on above: Performed By: #### C BC #### [facility] [address] [place] [address] Dr. Mikayla Galan Basophils/100 WBC (Bld) 0.4 % Normal 0.2-2.0 [facility] Comment on above: Performed By: #### C BC #### [facility] [address] [place] [address] Dr. Mikayla Galan EO # 0.1 103/ul Normal 0.0-0.7 [facility] Comment on above: Performed By: #### C BC #### [facility] [address] [place] [address] Dr. Mikayla Galan Eosinophils/100 WBC (Bld) 1.5 % Normal 0.9-7.0 [facility] Comment on above: Performed By: #### C BC #### [facility] [address] [place] [address] Dr. Mikayla Galan Erythrocyte distribution width (RBC) [Ratio] 13.2 % Normal 11.0-15.0 [facility] Comment on above: Performed By: #### C BC #### [facility] [address] [place] [address] Dr. Mikayla Galan Hematocrit (Bld) [Volume fraction] 41.7 % Critically low 42.0-54.0 [facility] Comment on above: Performed By: #### C BC #### [facility] [address] [place] [address] Dr. Mikayla Galan Hemoglobin (Bld) [Mass/Vol] 13.9 g/dL Critically low 14.0-18.0 [facility] Comment on above: Performed By: #### C BC #### [facility] [address] [place] [address] Dr. Mikayla Galan IG # 0.02 10e3/ul Normal 0.00-0.03 [facility] Comment on above: Performed By: #### C BC #### [facility] [address] [place] [address] Dr. Mikayla Galan IG % 0.4 % Normal 0.0-0.5 [facility] Comment on above: Performed By: #### C BC #### [facility] [address] [place] [address] Dr. Mikayla Galan LYMPH # 1.1 103/ul Critically low 1.2-3.8 [facility] Comment on above: Performed By: #### C BC #### [facility] [address] [place] [address] Dr. Mikayla Galan Lymphocytes/100 WBC (Bld) 24.7 % Normal 20.5-60.0 [facility] Comment on above: Performed By: #### C BC #### [facility] [address] [place] [address] Dr. Mikayla Galan MANUAL DIFF REQ NO Normal [facility] Comment on above: Performed By: #### C BC #### [facility] [address] [place] [address] Dr. Mikayla Galan MCH (RBC) [Entitic mass] 30.5 pg Normal 25.9-34.0 [facility] Comment on above: Performed By: #### C BC #### [facility] [address] [place] [address] Dr. Mikayla Galan MCHC (RBC) [Mass/Vol] 33.3 g/dL Normal 29.9-35.2 [facility] Comment on above: Performed By: #### C BC #### [facility] [address] [place] [address] Dr. Mikayla Galan MCV (RBC) [Entitic vol] 91.4 fL Normal 80.0-94.0 [facility] Comment on above: Performed By: #### C BC #### [facility] [address] [place] [address] Dr. Mikayla Galan MONO # 0.4 103/ul Normal 0.3-0.8 [facility] Comment on above: Performed By: #### C BC #### [facility] [address] [place] [address] Dr. Mikayla Galan Monocytes/100 WBC (Bld) 8.4 % Normal 1.7-12.0 [facility] Comment on above: Performed By: #### C BC #### [facility] [address] [place] [address] Dr. Mikayla Galan NEUT # 2.9 103/ul Normal 1.4-6.5 [facility] Comment on above: Performed By: #### C BC #### [facility] [address] [place] [address] Dr. Mikayla Galan Neutrophils/100 WBC (Bld) 64.6 % Normal 43.0-75.0 [facility] Comment on above: Performed By: #### C BC #### [facility] [address] [place] [address] Dr. Mikayla Galan Platelet mean volume (Bld) [Entitic vol] 9.5 fL Normal 9.5-13.5 [facility] Comment on above: Performed By: #### C BC #### [facility] [address] [place] [address] Dr. Mikayla Galan PLT 293 103/ul Normal 150-450 [facility] Comment on above: Performed By: #### C BC #### [facility] [address] [place] [address] Dr. Mikayla Galan RBC 4.56 106/ul Critically low 4.70-6.10 [facility] Comment on above: Performed By: #### C BC #### [facility] [address] [place] [address] Dr. Mikayla Galan WBC 4.5 103/ul Normal 4.0-11.0 [facility] Comment on above: Performed By: #### C BC #### [facility] [address] [place] [address] N[address]K ST W [...] CHAU JUNG Date: 2022-07-27 13:04 Normal [facility]09 SARS-CoV-2 (COVID-19) RNA IRIS+probe Ql (Unsp spec) Not detected Normal NOT DETECTED [facility] Comment on above: Result Comment: This test is not yet approved or cleared by the [place] FDA. When there are no FDA-approved or cleared tests available, and other criteria are met, FDA can make tests available under an emergency access mechanism called an Emergency Use Authorization (EUA). The EUA for this test is supported by the Program Management Intern of Health and Human Service's (HHS's) declaration [...] SARS-CoV-2. Performed By: #### P OCGLUC #### [facility] [address] [place] [address] Dr. Mikayla Galan PROF CHEM 8 (BAS METB)on Anion gap [Moles/Vol] 10.2 mmol/L Normal [facility] Comment on above: Performed By: #### B MP #### [facility] [address] [place] [address] Dr. Mikayla Galan Calcium [Mass/Vol] 9.2 mg/dL Normal 8.5-10.1 [facility] Comment on above: Performed By: #### B MP #### [facility] [address] [place] [address] Dr. Mikayla Galan Chloride [Moles/Vol] 103 mmol/L Normal 98-107 [facility] Comment on above: Performed By: #### B MP #### [facility] [address] [place] [address] Dr. Mikayla Galan CO2 [Moles/Vol] 31.3 mmol/L Normal 21.0-32.0 [facility] Comment on above: Performed By: #### B MP #### [facility] [address] [place] [address] Dr. Mikayla Galan Creatinine [Mass/Vol] 0.98 mg/dL Normal 0.70-1.30 [facility] Comment on above: Performed By: #### B MP #### [facility] [address] [place] [address] Dr. Mikayla Galan EGFR-AF EGYPTIAN >60 Normal >=60 [facility] Comment on above: Performed By: #### B MP #### [facility] [address] [place] [address] Dr. Mikayla Galan EGFR-NON AF EGYPTIAN >60 Normal >=60 [facility] Comment on above: Performed By: #### B MP #### [facility] [address] [address] [address] Mikayla Galan Glucose [Mass/Vol] 133 mg/dL Critically high 74-106 [facility] Comment on above: Performed By: #### B MP #### [facility] [address] [address] [address] Mikayla Galan Potassium [Moles/Vol] 4.5 mmol/L Normal 3.5-5.1 [facility] Comment on above: Performed By: #### B MP #### [facility] [address] [address] [address] Mikayla Galan Sodium [Moles/Vol] 140 mmol/L Normal 136-145 [facility] Comment on above: Performed By: #### B MP #### [facility] [address] [place] [address] Dr. Mikayla Galan Urea nitrogen [Mass/Vol] 21.0 mg/dL Critically high 7.0-18.0 [facility] Comment on above: Performed By: #### B MP #### [facility] [address] [place] [address] Dr. Mikayla Galan Urea nitrogen/Creatinine [Mass ratio] 21.4 mg/mg Normal [facility] Comment on above: Performed By: #### B MP #### [facility] [address] [place] [address] Dr. Mikayla Galan PROTIMEon 07-27-2022 INR Coag (PPP) [Relative time] 1.04 {INR} Normal [facility] Comment on above: Performed By: #### P T, PTT #### [facility] [address] [place] [address] Dr. Mikayla Galan INR GUIDELINES SEE BELOW Normal [facility] Comment on above: Result Comment: VANESSA RED INR: 2.0 - 3.0 CONDITIONS NOT LISTED BELOW 2.5 - 3.5 FOR PROSTHETIC HEART VALVE REPLACEMENT 2.5 - 3.5 RECURRENT THROMBOSIS Performed By: #### P T, PTT #### [facility] [address] [place] [address] Dr. Mikayla Galan PT Coag (PPP) [Time] 11.0 s Normal 9.0-11.6 [facility] Comment on above: Performed By: #### P T, PTT #### [facility] [address] [address] [address] Mikayla Galan PTTon 07-27-2022 aPTT Coag (Bld) [Time] 28.6 s Normal 22.3-36.2 [facility] Comment on above: Performed By: #### P OCGLUC #### [facility] [address] [address] [address] Mikayla Galan Pathology Noteon 07-20-2022 Pathology Note [id number] .00CD:127 Normal [facility] Outside Colonoscopyon 2022 Outside Colonoscopy [id number] .[id number]:127 Normal [facility] POINT OF CARE GLUCOSEon 07-08 Glucose [Mass/Vol] 94 mg/dL Normal 74-106 [facility] Comment on above: Performed By: #### P OCGLUC #### [facility] [address] [address] [address] Mikayla Galan Lab Reportson 07-12-2022 Lab Reports [id number] .00CD:127 Normal [facility] Covid-19 PCR (CVDTB)on SARS-CoV-2 (COVID-19) RNA IRIS+probe Ql (Unsp spec) Not detected Normal NOT DETECTED [facility] Comment on above: Result Comment: This test is not yet approved or cleared by the [place] FDA. When there are no FDA-approved or cleared tests available, and other criteria are met, FDA can make tests available under an emergency access mechanism called an Emergency Use Authorization (EUA). The EUA for this test is supported by the [place] of Health and Human Service's (HHS's) declaration [...] SARS-CoV-2. Performed By: #### P OCGLUC #### [facility] [address] [place] [address] Dr. Mikayla Galan Consent for Procedure/Surger yon 06-15-2022 Consent for Procedure/Surgery [id number] .[id number]:127 Normal [facility] US THYROIDon 06-11-2022 US THYROID EXAMINATION: [...] by: QUANG JOHNSON Date: 2022-06-11 07:17 Normal [facility] Provider Letteron 05-15-2022 Provider Letter May 15, 2022 [address] [place] [id number] MANISH ROOT 1945 Dear Manish , We have been trying to reach you with no success. It is important that you return our call regarding your referral from Dr. Nelson upon receiving this letter. Also, at the time of your call, please provide us with your current information. Thank you for your prompt attention to this matter. Sincerely, General Surgery [phone] Normal [facility] CBC AUTO DIFFon 02-27-2022 BASO # 0.0 103/ul Normal 0.0-0.1 [facility] Comment on above: Performed By: #### C BC #### [facility] [address] [address] [address] Miakyla Galan Basophils/100 WBC (Bld) 0.6 % Normal 0.2-2.0 [facility] Comment on above: Performed By: #### C BC #### [facility] [address] [address] [address] Mikayla Galan EO # 0.1 103/ul Normal 0.0-0.7 [facility] Comment on above: Performed By: #### C BC #### [facility] [address] [address] [address] Mikayla Galan Eosinophils/100 WBC (Bld) 1.4 % Normal 0.9-7.0 [facility] Comment on above: Performed By: #### C BC #### [facility] [address] [place] [address] Dr. Mikayla Galan Erythrocyte distribution width (RBC) [Ratio] 12.6 % Normal 11.0-15.0 [facility] Comment on above: Performed By: #### C BC #### [facility] [address] [place] [address] Dr. Mikayla Galan Hematocrit (Bld) [Volume fraction] 41.8 % Critically low 42.0-54.0 [facility] Comment on above: Performed By: #### C BC #### [facility] [address] [place] [address] Dr. Mikayla Galan Hemoglobin (Bld) [Mass/Vol] 13.9 g/dL Critically low 14.0-18.0 [facility] Comment on above: Performed By: #### C BC #### [facility] [address] [place] [address] Dr. Mikayla Galan IG # 0.03 10e3/ul Normal 0.00-0.03 [facility] Comment on above: Performed By: #### C BC #### [facility] [address] [place] [address] Dr. Mikayla Galan IG % 0.6 % Critically high 0.0-0.5 [facility] Comment on above: Performed By: #### C BC #### [facility] [address] [address] [address] Mikayla Galan LYMPH # 1.0 103/ul Critically low 1.2-3.8 [facility] Comment on above: Performed By: #### C BC #### [facility] [address] [address] [address] Mikayla Galan Lymphocytes/100 WBC (Bld) 19.9 % Critically low 20.5-60.0 [facility] Comment on above: Performed By: #### C BC #### [facility] [address] [place] [address] Dr. Mikayla Galan MANUAL DIFF REQ NO Normal [facility] Comment on above: Performed By: #### C BC #### [facility] [address] [place] [address] Dr. Mikayla Galan MCH (RBC) [Entitic mass] 31.0 pg Normal 25.9-34.0 [facility] Comment on above: Performed By: #### C BC #### [facility] [address] [place] [address] Dr. Mikayla Galan MCHC (RBC) [Mass/Vol] 33.3 g/dL Normal 29.9-35.2 [facility] Comment on above: Performed By: #### C BC #### [facility] [address] [place] [address] Dr. Mikayla Galan MCV (RBC) [Entitic vol] 93.3 fL Normal 80.0-94.0 [facility] Comment on above: Performed By: #### C BC #### [facility] [address] [place] [address] Dr. Mikayla Galan MONO # 0.5 103/ul Normal 0.3-0.8 [facility] Comment on above: Performed By: #### C BC #### [facility] [address] [place] [address] Dr. Mikayla Galan Monocytes/100 WBC (Bld) 8.9 % Normal 1.7-12.0 [facility] Comment on above: Performed By: #### C BC #### [facility] [address] [address] [address] Mikayla Galan NEUT # 3.5 103/ul Normal 1.4-6.5 [facility] Comment on above: Performed By: #### C BC #### [facility] [address] [address] [address] Mikayla Galan Neutrophils/100 WBC (Bld) 68.6 % Normal 43.0-75.0 [facility] Comment on above: Performed By: #### C BC #### [facility] [address] [address] [address] Mikayla Galan Platelet mean volume (Bld) [Entitic vol] 9.6 fL Normal 9.5-13.5 [facility] Comment on above: Performed By: #### C BC #### [facility] [address] [address] [address] Mikayla Galan PLT 280 103/ul Normal 150-450 [facility] Comment on above: Performed By: #### C BC #### [facility] [address] [address] [address] Mikayla Galan RBC 4.48 106/ul Critically low 4.70-6.10 [facility] Comment on above: Performed By: #### C BC #### [facility] [address] [address] [address] Mikayla Galan WBC 5.1 103/ul Normal 4.0-11.0 [facility] Comment on above: Performed By: #### C BC #### [facility] [address] [address] [address] Mikayla Galan GLYCOHEMOGLOBIN A1Con 2021 ADA RECOMMENDATION SEE BELOW Normal [facility] Comment on above: Result Comment: ADA RECOMMENDED LIMIT 4.0 - 6.0 ADA THERAPEUTIC TARGET < 7.0 ACTION SUGGESTED > 7.0 Performed By: #### A 1C #### [facility] [address] [place] [address] Dr. Mikayla Galan Glucose [Mass/Vol] 183 mg/dL Normal [facility] Comment on above: Performed By: #### A 1C #### [facility] [address] [place] [address] Dr. Mikayla Galan HbA1c (Bld) [Mass fraction] 8.0 % Critically high 4.5-6.2 [facility] Comment on above: Performed By: #### A 1C #### [facility] [address] [place] [address] Dr. Mikayla Galan PROF 14(COMP METB)on 022 Albumin [Mass/Vol] 3.8 g/dL Normal 3.4-5.0 [facility] Comment on above: Performed By: #### C MP #### [facility] [address] [place] [address] Dr. Mikayla Galan Albumin/Globulin [Mass ratio] 1.2 {ratio} Normal [facility] Comment on above: Performed By: #### C MP #### [facility] [address] [place] [address] Dr. Mikayla Galan ALP [Catalytic activity/Vol] 111 U/L Normal 46-116 [facility] Comment on above: Performed By: #### C MP #### [facility] [address] [place] [address] Dr. Mikayla Galan ALT [Catalytic activity/Vol] 50 U/L Normal 16-63 [facility] Comment on above: Performed By: #### C MP #### [facility] [address] [place] [address] Dr. Mikayla Galan Anion gap [Moles/Vol] 11.5 mmol/L Normal [facility] Comment on above: Performed By: #### C MP #### [facility] [address] [place] [address] Dr. Mikayla Galan AST [Catalytic activity/Vol] 27 U/L Normal 15-37 [facility] Comment on above: Performed By: #### C MP #### [facility] [address] [place] [address] Dr. Mikayla Galan Bilirubin [Mass/Vol] 0.5 mg/dL Normal 0.2-1.0 [facility] Comment on above: Performed By: #### C MP #### [facility] [address] [place], [place] [id number] Dr. Mikayla Galan Calcium [Mass/Vol] 9.0 mg/dL Normal 8.5-10.1 [facility] Comment on above: Performed By: #### C MP #### [facility] [address] [place] [address] Dr. Mikayla Galan Chloride [Moles/Vol] 101 mmol/L Normal 98-107 [facility] Comment on above: Performed By: #### C MP #### [facility] [address] [place] [address] Dr. Mikayla Galan CO2 [Moles/Vol] 27.7 mmol/L Normal 21.0-32.0 [facility] Comment on above: Performed By: #### C MP #### [facility] [address] [place] [address] Dr. Mikayla Galan Creatinine [Mass/Vol] 1.17 mg/dL Normal 0.70-1.30 [facility] Comment on above: Performed By: #### C MP #### [facility] [address] [place] [address] Dr. Mikayla Galan EGFR-AF EGYPTIAN >60 Normal >=60 [facility] Comment on above: Performed By: #### C MP #### [facility] [address] [place] [address] Dr. Mikayla Galan EGFR-NON AF EGYPTIAN =60 Normal >=60 [facility] Comment on above: Performed By: #### C MP #### [facility] [address] [place] [address] Dr. Mikayla Galan Globulin (S) [Mass/Vol] 3.3 g/dL Normal [facility] Comment on above: Performed By: #### C MP #### [facility] [address] [place] [address] Dr. Mikayla Galan Glucose [Mass/Vol] 233 mg/dL Critically high 74-106 [facility] Comment on above: Performed By: #### C MP #### [facility] [address] [place] [address] Dr. Mikayla Galan Potassium [Moles/Vol] 4.2 mmol/L Normal 3.5-5.1 [facility] Comment on above: Performed By: #### C MP #### [facility] [address] [address] [address] Mikayla Galan Protein [Mass/Vol] 7.1 g/dL Normal 6.4-8.2 [facility] Comment on above: Performed By: #### C MP #### [facility] [address] [address] [address] iMkayla Galan Sodium [Moles/Vol] 136 mmol/L Normal 136-145 [facility] Comment on above: Performed By: #### C MP #### [facility] [address] [address] [address] Mikayla Galan Urea nitrogen [Mass/Vol] 15.0 mg/dL Normal 7.0-18.0 [facility] Comment on above: Performed By: #### C MP #### [facility] [address] [address] [address] Mikayla Galan Urea nitrogen/Creatinine [Mass ratio] 12.8 mg/mg Normal [facility] Comment on above: Performed By: #### C MP #### [facility] [address] [address] [address] Mikayla Galan Physician Referralon 022 Physician Referral [id number]. [id number] Normal [facility] Vital Signs Date Time Vital Sign Value Performing Clinician Facility 01-19-2025 [id number] Body height 170.2 cm Serene Morales MD Work Phone: [facility] 01-19-2025 08:10-0400 Body mass index (BMI) [Ratio] 31.48 kg/m2 Serene Morales MD Work Phone: [facility] 01-19-2025 08:10-0400 Body weight 91.17 kg Serene Morales MD Work Phone: [facility] 01-19-2025 08:10-0400 Diastolic blood pressure 53 mm[Hg] Serene Morales MD Work Phone: [facility] 01-19-2025 08:10-0400 Heart rate 57 /min Serene Morales MD Work Phone: [facility] 01-19-2025 08:10-0400 Systolic blood pressure 162 mm[Hg] Serene Morales MD Work Phone: [facility] 01-06-2025 09:01-0400 Body height 170.2 cm Mason Johnson MD Work Phone: [facility] 01-06-2025 09:01-0400 Body mass index (BMI) [Ratio] 31.17 kg/m2 Mason Johnson MD Work Phone: [facility] 01-06-2025 09:01-0400 Body weight 90.27 kg Mason Johnson MD Work Phone: [facility] 01-06-2025 09:01-0400 Diastolic blood pressure 74 mm[Hg] Mason Johnson MD Work Phone: [facility] 01-06-2025 09:01-0400 Heart rate 60 /min Mason Johnson MD Work Phone: [facility] 01-06-2025 09:01-0400 SaO2% (BldA) [Mass fraction] 96 % Mason Johnson MD Work Phone: [facility] 01-06-2025 09:01-0400 Systolic blood pressure 136 mm[Hg] Mason Johnson MD Work Phone: [facility] 12-28-2024 09:31-0400 Body height 170.2 cm Mason Johnson MD Work Phone: [facility] 12-28-2024 09:31-0400 Body mass index (BMI) [Ratio] 31.48 kg/m2 Mason Johnson MD Work Phone: [facility] 12-28-2024 09:31-0400 Body weight 91.17 kg Mason Johnson MD Work Phone: [facility] 12-28-2024 09:31-0400 Diastolic blood pressure 70 mm[Hg] Mason Johnson MD Work Phone: [facility] 12-28-2024 09:31-0400 Heart rate 58 /min Mason Johnson MD Work Phone: [facility] 12-28-2024 09:31-0400 SaO2% (BldA) [Mass fraction] 95 % Mason Johnson MD Work Phone: [facility] 12-28-2024 09:31-0400 Systolic blood pressure 136 mm[Hg] Mason Johnson MD Work Phone: [facility] 12-09-2024 10:33-0400 Body height 170.2 cm Mason Johnson MD Work Phone: [facility] 12-09-2024 10:33-0400 Body mass index (BMI) [Ratio] 31.32 kg/m2 Mason Johnson MD Work Phone: [facility] 12-09-2024 10:33-0400 Body weight 90.72 kg Mason Johnson MD Work Phone: [facility] 12-09-2024 10:33-0400 Diastolic blood pressure 82 mm[Hg] Mason Johnson MD Work Phone: [facility] 12-09-2024 10:33-0400 Heart rate 56 /min Mason Johnson MD Work Phone: [facility] 12-09-2024 10:33-0400 SaO2% (BldA) [Mass fraction] 95 % Mason Johnson MD Work Phone: [facility] 12-09-2024 10:33-0400 Systolic blood pressure 134 mm[Hg] Mason Johnson MD Work Phone: [facility] 11-04-2024 10:50-0400 Body height 166.9 cm John England MD Work Phone: [facility] 11-04-2024 10:50-0400 Body mass index (BMI) [Ratio] 32.92 kg/m2 John England MD Work Phone: [facility] 04-30-2025 10:50-0400 Body temperature 97.9 [degF] John England MD Work Phone: [facility] 11-04-2024 10:50-0400 Body weight 91.7 kg John England MD Work Phone: [facility] 11-04-2024 10:50-0400 Diastolic blood pressure 69 mm[Hg] John England MD Work Phone: [facility] 11-04-2024 10:50-0400 Heart rate 55 /min John England MD Work Phone: [facility] 11-04-2024 10:50-0400 Respiratory rate 16 /min John England MD Work Phone: [facility] 11-04-2024 10:50-0400 SaO2% (BldA) [Mass fraction] 97 % John England MD Work Phone: [facility] 11-04-2024 10:50-0400 Systolic blood pressure 155 mm[Hg] John England MD Work Phone: [facility] 10-26-2024 10:52-0400 Body height 170.2 cm Mason Johnson MD Work Phone: [facility] 10-26-2024 10:52-0400 Body mass index (BMI) [Ratio] 30.85 kg/m2 Mason Johnson MD Work Phone: [facility] 10-26-2024 10:52-0400 Body weight 89.36 kg Mason Johnson MD Work Phone: [facility] 10-26-2024 10:52-0400 Diastolic blood pressure 74 mm[Hg] Mason Johnson MD Work Phone: [facility] 10-26-2024 10:52-0400 Heart rate 52 /min Mason Johnson MD Work Phone: [facility] 10-26-2024 10:52-0400 SaO2% (BldA) [Mass fraction] 96 % Mason Johnson MD Work Phone: [facility] 10-26-2024 10:52-0400 Systolic blood pressure 130 mm[Hg] Mason Johnson MD Work Phone: [facility] 10-20-2024 08:01-0400 Body height 170.2 cm Serene Morales MD Work Phone: [facility] 10-20-2024 08:01-0400 Body mass index (BMI) [Ratio] 30.85 kg/m2 Serene Morales MD Work Phone: [facility] 10-20-2024 08:01-0400 Body weight 89.36 kg Serene Morales MD Work Phone: [facility] 10-20-2024 08:01-0400 Diastolic blood pressure 87 mm[Hg] Serene Morales MD Work Phone: [facility] 10-20-2024 08:01-0400 Heart rate 54 /min Serene Morales MD Work Phone: [facility] 10-20-2024 08:01-0400 Systolic blood pressure 155 mm[Hg] Serene Morales MD Work Phone: [facility] 10-12-2024 15:41-0400 Body height 170.2 cm Mason Johnson MD Work Phone: [facility] 10-12-2024 15:41-0400 Body mass index (BMI) [Ratio] 30.85 kg/m2 Mason Johnson MD Work Phone: [facility] 10-12-2024 15:41-0400 Body weight 89.36 kg Mason Johnson MD Work Phone: [facility] 10-12-2024 15:41-0400 Diastolic blood pressure 70 mm[Hg] Mason Johnson MD Work Phone: [facility] 10-12-2024 15:41-0400 Heart rate 56 /min Mason Johnson MD Work Phone: [facility] 10-12-2024 15:41-0400 SaO2% (BldA) [Mass fraction] 98 % Mason Johnson MD Work Phone: [facility] 10-12-2024 15:41-0400 Systolic blood pressure 134 mm[Hg] Mason Johnson MD Work Phone: [facility] 08-31-2024 09:26-0500 Body height 170.2 cm Mason Johnson MD Work Phone: [facility] 08-31-2024 09:26-0500 Body mass index (BMI) [Ratio] 30.54 kg/m2 Mason Johnson MD Work Phone: [facility] 08-31-2024 09:26-0500 Body weight 88.45 kg Mason Johnson MD Work Phone: [facility] 08-31-2024 09:26-0500 Diastolic blood pressure 74 mm[Hg] Mason Johnson MD Work Phone: [facility] 08-31-2024 09:26-0500 Heart rate 74 /min Mason Johnson MD Work Phone: [facility] 08-31-2024 09:26-0500 SaO2% (BldA) [Mass fraction] 98 % Mason Johnson MD Work Phone: [facility] 08-31-2024 09:26-0500 Systolic blood pressure 136 mm[Hg] Mason Johnson MD Work Phone: [facility] 07-21-2024 14:14-0500 Body height 170.2 cm Serene Morales MD Work Phone: [facility] 07-21-2024 14:14-0500 Body mass index (BMI) [Ratio] 29.91 kg/m2 Serene Morales MD Work Phone: [facility] 07-21-2024 14:14-0500 Body weight 86.64 kg Serene Morales MD Work Phone: [facility] 07-21-2024 14:14-0500 Diastolic blood pressure 74 mm[Hg] Serene Morales MD Work Phone: [facility] 07-21-2024 14:14-0500 Heart rate 57 /min Serene Morales MD Work Phone: [facility] 07-21-2024 14:14-0500 Systolic blood pressure 148 mm[Hg] Serene Morales MD Work Phone: [facility] 06-16-2024 09:02-0500 Body height 170.2 cm Serene Morales MD Work Phone: [facility] 06-16-2024 09:02-0500 Body mass index (BMI) [Ratio] 29.91 kg/m2 Serene Morales MD Work Phone: [facility] 06-16-2024 09:02-0500 Body weight 86.64 kg Serene Morales MD Work Phone: [facility] 06-16-2024 09:02-0500 Diastolic blood pressure 71 mm[Hg] Serene Morales MD Work Phone: [facility] 06-16-2024 09:02-0500 Systolic blood pressure 142 mm[Hg] Serene Morales MD Work Phone: [facility] 05-19-2024 08:57-0500 Body height 170.2 cm Serene Morales MD Work Phone: [facility] 05-19-2024 08:57-0500 Body mass index (BMI) [Ratio] 29.91 kg/m2 Serene Morales MD Work Phone: [facility] 05-19-2024 08:57-0500 Body weight 86.64 kg Serene Morales MD Work Phone: [facility] 05-19-2024 08:57-0500 Diastolic blood pressure 62 mm[Hg] Serene Morales MD Work Phone: [facility] 05-19-2024 08:57-0500 Systolic blood pressure 130 mm[Hg] Serene Morales MD Work Phone: [facility] 05-06-2024 15:06-0400 Body height 166.9 cm John England MD Work Phone: [facility] 05-06-2024 15:06-0400 Body mass index (BMI) [Ratio] 31.12 kg/m2 John England MD Work Phone: [facility] 05-06-2024 15:06-0400 Body temperature 97.81 [degF] John England MD Work Phone: [facility] 05-06-2024 15:06-0400 Body weight 86.7 kg John England MD Work Phone: [facility] 05-06-2024 15:06-0400 Diastolic blood pressure 73 mm[Hg] John England MD Work Phone: [facility] 05-06-2024 15:06-0400 Heart rate 60 /min John England MD Work Phone: [facility] 05-06-2024 15:06-0400 Respiratory rate 18 /min John England MD Work Phone: [facility] 05-06-2024 15:06-0400 SaO2% (BldA) [Mass fraction] 98 % John England MD Work Phone: [facility] 05-06-2024 15:06-0400 Systolic blood pressure 122 mm[Hg] John England MD Work Phone: [facility] 05-06-2024 14:36-0400 Body mass index (BMI) [Ratio] 31.12 kg/m2 BARRON Feliz MD Work Phone: [facility] 05-06-2024 14:36-0400 Body temperature 97.81 [degF] BARRON Feliz MD Work Phone: [facility] 05-06-2024 14:36-0400 Body weight 86.7 kg BARRON Feliz MD Work Phone: [facility] 05-06-2024 14:36-0400 Diastolic blood pressure 73 mm[Hg] BARRON Feliz MD Work Phone: [facility] 05-06-2024 14:36-0400 Heart rate 60 /min BARRON Feliz MD Work Phone: [facility] 05-06-2024 14:36-0400 Respiratory rate 18 /min BARRON Feliz MD Work Phone: [facility] 05-06-2024 14:36-0400 SaO2% (BldA) [Mass fraction] 98 % BARRON Feliz MD Work Phone: [facility] 05-06-2024 14:36-0400 Systolic blood pressure 122 mm[Hg] BARRON Feliz MD Work Phone: [facility] 04-30-2024 08:51-0400 Body height 170.2 cm Mason Johnson MD Work Phone: [facility] 04-30-2024 08:51-0400 Body mass index (BMI) [Ratio] 30.23 kg/m2 Mason Johnson MD Work Phone: [facility] 04-30-2024 08:51-0400 Body weight 87.54 kg Mason Johnson MD Work Phone: [facility] 04-30-2024 08:51-0400 Diastolic blood pressure 80 mm[Hg] Mason Johnson MD Work Phone: [facility] 04-30-2024 08:51-0400 Heart rate 63 /min Mason Johnson MD Work Phone: [facility] 04-30-2024 08:51-0400 SaO2% (BldA) [Mass fraction] 100 % Mason Johnson MD Work Phone: [facility] 04-30-2024 08:51-0400 Systolic blood pressure 134 mm[Hg] Mason Johnson MD Work Phone: [facility] 04-21-2024 09:17-0400 Body height 170.2 cm Serene Morales MD Work Phone: [facility] 04-21-2024 09:17-0400 Body mass index (BMI) [Ratio] 30.38 kg/m2 Serene Morales MD Work Phone: [facility] 04-21-2024 09:17-0400 Body weight 88 kg Serene Morales MD Work Phone: [facility] 04-21-2024 09:17-0400 Diastolic blood pressure 73 mm[Hg] Serene Morales MD Work Phone: [facility] 04-21-2024 09:17-0400 Systolic blood pressure 173 mm[Hg] Serene Morales MD Work Phone: [facility] 04-07-2024 12:09-0400 Body height 170.18 cm [facility] 04-07-2024 12:09-0400 Body mass index (BMI) [Ratio] 30.1 kg/m2 [facility] 04-07-2024 12:09-0400 Body temperature 97.3 [degF] [facility] 04-07-2024 12:09-0400 Body weight 87.2 kg [facility] 04-07-2024 12:09-0400 Diastolic blood pressure 72 mm[Hg] [facility] 04-07-2024 12:09-0400 Heart rate 63 /min [facility] 04-07-2024 12:09-0400 Respiratory rate 18 /min [facility] 04-07-2024 12:09-0400 SaO2% (BldA) [Mass fraction] 97 % [facility] 04-07-2024 12:09-0400 Systolic blood pressure 137 mm[Hg] [facility] 03-24-2024 08:59-0400 Body height 170.2 cm Serene Morales MD Work Phone: [facility] 03-24-2024 08:59-0400 Body mass index (BMI) [Ratio] 29.6 kg/m2 Serene Morales MD Work Phone: [facility] 03-24-2024 08:59-0400 Body weight 85.73 kg Serene Morales MD Work Phone: [facility] 03-24-2024 08:59-0400 Diastolic blood pressure 74 mm[Hg] Serene Morales MD Work Phone: [facility] 03-24-2024 08:59-0400 Systolic blood pressure 157 mm[Hg] Serene Morales MD Work Phone: [facility] 02-25-2024 09:06-0400 Body height 170.2 cm Serene Morales MD Work Phone: [facility] 02-25-2024 09:06-0400 Body mass index (BMI) [Ratio] 29.91 kg/m2 Serene Morales MD Work Phone: [facility] 02-25-2024 09:06-0400 Body weight 86.64 kg Serene Morales MD Work Phone: [facility] 02-25-2024 09:06-0400 Diastolic blood pressure 96 mm[Hg] Serene Morales MD Work Phone: [facility] 02-25-2024 09:06-0400 Systolic blood pressure 193 mm[Hg] Serene Morales MD Work Phone: [facility] 01-14-2024 13:29-0400 Body height 167.64 cm [facility] 01-14-2024 13:29-0400 Body mass index (BMI) [Ratio] 30.5 kg/m2 [facility] 01-14-2024 13:29-0400 Body temperature 97.4 [degF] [facility] 01-14-2024 13:29-0400 Body weight 85.89 kg [facility] 01-14-2024 13:29-0400 Diastolic blood pressure 70 mm[Hg] [facility] 01-14-2024 13:29-0400 Heart rate 66 /min [facility] 01-14-2024 13:29-0400 Respiratory rate 18 /min [facility] 01-14-2024 13:29-0400 SaO2% (BldA) [Mass fraction] 92 % [facility] 01-14-2024 13:29-0400 Systolic blood pressure 112 mm[Hg] [facility] 11-06-2023 09:51-0400 Body mass index (BMI) [Ratio] 31.73 kg/m2 BARRON Feliz MD Work Phone: [facility] 11-06-2023 09:51-0400 Body temperature 97.11 [degF] BARRON Feliz MD Work Phone: [facility] 11-06-2023 09:51-0400 Body weight 88.4 kg BARRON Feliz MD Work Phone: [facility] 11-06-2023 09:51-0400 Diastolic blood pressure 77 mm[Hg] BARRON Feliz MD Work Phone: [facility] 11-06-2023 09:51-0400 Heart rate 58 /min BARRON Feliz MD Work Phone: [facility] 11-06-2023 09:51-0400 Respiratory rate 16 /min BARRON Feliz MD Work Phone: [facility] 11-06-2023 09:51-0400 SaO2% (BldA) [Mass fraction] 99 % BARRON Feliz MD Work Phone: [facility] 11-06-2023 09:51-0400 Systolic blood pressure 163 mm[Hg] BARRON Feliz MD Work Phone: [facility] 10-23-2023 10:56-0400 Body height 166.9 cm John England MD Work Phone: [facility] 10-23-2023 10:56-0400 Body temperature 97.81 [degF] John England MD Work Phone: [facility] 10-23-2023 10:56-0400 Body weight 87.5 kg John England MD Work Phone: [facility] 10-23-2023 10:56-0400 Diastolic blood pressure 70 mm[Hg] John England MD Work Phone: [facility] 10-23-2023 10:56-0400 Heart rate 54 /min John England MD Work Phone: [facility] 10-23-2023 10:56-0400 Respiratory rate 16 /min John England MD Work Phone: [facility] 10-23-2023 10:56-0400 SaO2% (BldA) [Mass fraction] 98 % John England MD Work Phone: [facility] 10-23-2023 10:56-0400 Systolic blood pressure 144 mm[Hg] John England MD Work Phone: [facility] 05-08-2023 11:14-0400 Body temperature 97.11 [degF] BARRON Feliz MD Work Phone: [facility] 05-08-2023 11:14-0400 Body weight 80.2 kg BARRON Feliz MD Work Phone: [facility] 05-08-2023 11:14-0400 Diastolic blood pressure 104 mm[Hg] BARRON Feliz MD Work Phone: [facility] 05-08-2023 11:14-0400 Heart rate 58 /min BARRON Feliz MD Work Phone: [facility] 05-08-2023 11:14-0400 Respiratory rate 16 /min BARRON Feliz MD Work Phone: [facility] 05-08-2023 11:14-0400 SaO2% (BldA) [Mass fraction] 98 % BARRON Feliz MD Work Phone: [facility] 05-08-2023 11:14-0400 Systolic blood pressure 168 mm[Hg] BARRON Feliz MD Work Phone: [facility] 03-20-2023 12:55-0400 Body height 166.9 cm John England MD Work Phone: [facility] 03-20-2023 12:55-0400 Body temperature 97.9 [degF] John England MD Work Phone: [facility] 03-20-2023 12:55-0400 Body weight 79.92 kg John England MD Work Phone: [facility] 03-20-2023 12:55-0400 Diastolic blood pressure 65 mm[Hg] John England MD Work Phone: [facility] 03-20-2023 12:55-0400 Heart rate 59 /min John England MD Work Phone: [facility] 03-20-2023 12:55-0400 Respiratory rate 16 /min John England MD Work Phone: [facility] 03-20-2023 12:55-0400 SaO2% (BldA) [Mass fraction] 98 % John England MD Work Phone: [facility] 03-20-2023 12:55-0400 Systolic blood pressure 139 mm[Hg] John England MD Work Phone: [facility] 02-06-2023 11:59-0400 Body temperature 97.3 [degF] BARRON Feliz MD Work Phone: [facility] 02-06-2023 11:59-0400 Body weight 80.74 kg BARRON Feliz MD Work Phone: [facility] 02-06-2023 11:59-0400 Diastolic blood pressure 67 mm[Hg] BARRON Feliz MD Work Phone: [facility] 02-06-2023 11:59-0400 Heart rate 56 /min BARRON Feliz MD Work Phone: [facility] 02-06-2023 11:59-0400 Respiratory rate 16 /min BARRON Feliz MD Work Phone: [facility] 02-06-2023 11:59-0400 Systolic blood pressure 142 mm[Hg] BARRON Feliz MD Work Phone: [facility] 02-06-2023 11:29-0400 Body height 166.9 cm John England MD Work Phone: [facility] 02-06-2023 11:29-0400 Body temperature 97.3 [degF] John England MD Work Phone: [facility] 02-06-2023 11:29-0400 Body weight 80.92 kg John England MD Work Phone: [facility] 02-06-2023 11:29-0400 Diastolic blood pressure 67 mm[Hg] John England MD Work Phone: [facility] 02-06-2023 11:29-0400 Heart rate 56 /min John England MD Work Phone: [facility] 02-06-2023 11:29-0400 Respiratory rate 16 /min John England MD Work Phone: [facility] 02-06-2023 11:29-0400 SaO2% (BldA) [Mass fraction] 98 % John England MD Work Phone: [facility] 02-06-2023 11:29-0400 Systolic blood pressure 142 mm[Hg] John England MD Work Phone: [facility] 11-28-2022 14:37-0400 Body temperature 96.69 [degF] BARRON Feliz MD Work Phone: [facility] 11-28-2022 14:37-0400 Body weight 78.47 kg BARRON Feliz MD Work Phone: [facility] 11-28-2022 14:37-0400 Diastolic blood pressure 69 mm[Hg] BARRON Feliz MD Work Phone: [facility] 11-28-2022 14:37-0400 Heart rate 66 /min BARRON Feliz MD Work Phone: [facility] 11-28-2022 14:37-0400 Respiratory rate 18 /min BARRON Feliz MD Work Phone: [facility] 11-28-2022 14:37-0400 SaO2% (BldA) [Mass fraction] 97 % BARRON Feliz MD Work Phone: [facility] 11-28-2022 14:37-0400 Systolic blood pressure 165 mm[Hg] BARRON Feliz MD Work Phone: [facility] 11-07-2022 09:21-0400 Body height 166.9 cm John England MD Work Phone: [facility] 11-07-2022 09:21-0400 Body temperature 97.5 [degF] John England MD Work Phone: [facility] 11-07-2022 09:21-0400 Body weight 78.11 kg John England MD Work Phone: [facility] 11-07-2022 09:21-0400 Diastolic blood pressure 66 mm[Hg] John England MD Work Phone: [facility] 11-07-2022 09:21-0400 Heart rate 58 /min John England MD Work Phone: [facility] 11-07-2022 09:21-0400 Respiratory rate 16 /min John England MD Work Phone: [facility] 11-07-2022 09:21-0400 SaO2% (BldA) [Mass fraction] 100 % John England MD Work Phone: [facility] 11-07-2022 09:21-0400 Systolic blood pressure 129 mm[Hg] John England MD Work Phone: [facility] 10-31-2022 14:05-0400 Body height 166.9 cm Natalie Cadena APRN.CNP Work Phone: [facility] 10-31-2022 14:05-0400 Body temperature 97.5 [degF] Natalie Cadena APRN.INJECTION MOLDING MACHINE SETTER Work Phone: [facility] 10-31-2022 14:05-0400 Body weight 78.2 kg Natalie Cadena APRN.INJECTION MOLDING MACHINE SETTER Work Phone: [facility] 10-31-2022 14:05-0400 Diastolic blood pressure 58 mm[Hg] Natalie Cadena APRN.INJECTION MOLDING MACHINE SETTER Work Phone: [facility] 10-31-2022 14:05-0400 Heart rate 67 /min Natalie Cadena APRN.INJECTION MOLDING MACHINE SETTER Work Phone: [facility] 10-31-2022 14:05-0400 Respiratory rate 16 /min Natalie Cadena APRN.INJECTION MOLDING MACHINE SETTER Work Phone: [facility] 10-31-2022 14:05-0400 SaO2% (BldA) [Mass fraction] 98 % Natalie Cadena APRN.INJECTION MOLDING MACHINE SETTER Work Phone: [facility] 10-31-2022 14:05-0400 Systolic blood pressure 120 mm[Hg] Natalie Cadena APRN.INJECTION MOLDING MACHINE SETTER Work Phone: [facility] 10-25-2022 09:51-0400 Body height 166.9 cm Natalie Cadena APRN.INJECTION MOLDING MACHINE SETTER Work Phone: [facility] 10-25-2022 09:51-0400 Body temperature 97 [degF] Natalie Cadena APRN.INJECTION MOLDING MACHINE SETTER Work Phone: [facility] 10-25-2022 09:51-0400 Body weight 79.29 kg Natalie Cadena APRN.INJECTION MOLDING MACHINE SETTER Work Phone: [facility] 10-25-2022 09:51-0400 Diastolic blood pressure 64 mm[Hg] Natalie Cadena APRN.INJECTION MOLDING MACHINE SETTER Work Phone: [facility] 10-25-2022 09:51-0400 Heart rate 63 /min Natalie Cadena APRN.INJECTION MOLDING MACHINE SETTER Work Phone: [facility] 10-25-2022 09:51-0400 Respiratory rate 16 /min Natalie Cadena APRN.INJECTION MOLDING MACHINE SETTER Work Phone: [facility] 10-25-2022 09:51-0400 SaO2% (BldA) [Mass fraction] 99 % Natalie Cadena APRN.INJECTION MOLDING MACHINE SETTER Work Phone: [facility] 10-25-2022 09:51-0400 Systolic blood pressure 135 mm[Hg] Natalie Cadena RECORDER GRAVITY PROSPECTING.INJECTION MOLDING MACHINE SETTER Work Phone: [facility] 10-19-2022 09:21-0400 Body height 166.9 cm John England MD Work Phone: [facility] 10-19-2022 09:21-0400 Body temperature 97.11 [degF] John England MD Work Phone: [facility] 10-19-2022 09:21-0400 Body weight 78.74 kg John England MD Work Phone: [facility] 10-19-2022 09:21-0400 Diastolic blood pressure 64 mm[Hg] John England MD Work Phone: [facility] 10-19-2022 09:21-0400 Heart rate 56 /min John England MD Work Phone: [facility] 10-19-2022 09:21-0400 Respiratory rate 16 /min John England MD Work Phone: [facility] 10-19-2022 09:21-0400 SaO2% (BldA) [Mass fraction] 98 % John England MD Work Phone: [facility] 10-19-2022 09:21-0400 Systolic blood pressure 129 mm[Hg] John England MD Work Phone: [facility] 10-15-2022 10:40-0400 Body temperature 97.39 [degF] BARRON Feliz MD Work Phone: [facility] 10-15-2022 10:40-0400 Body weight 78.02 kg BARRON Feliz MD Work Phone: [facility] 10-15-2022 10:40-0400 Diastolic blood pressure 79 mm[Hg] BARRON Feliz MD Work Phone: [facility] 10-15-2022 10:40-0400 Heart rate 83 /min BARRON Feliz MD Work Phone: [facility] 10-15-2022 10:40-0400 Respiratory rate 16 /min BARRON Feliz MD Work Phone: [facility] 10-15-2022 10:40-0400 SaO2% (BldA) [Mass fraction] 100 % BARRON Feliz MD Work Phone: [facility] 10-15-2022 10:40-0400 Systolic blood pressure 126 mm[Hg] BARRON Feliz MD Work Phone: [facility] 10-08-2022 11:07-0400 Body temperature 98.2 [degF] Chair Diller Work Phone: [facility] 10-08-2022 11:07-0400 Diastolic blood pressure 76 mm[Hg] Chair Diller Work Phone: [facility] 10-08-2022 11:07-0400 Heart rate 70 /min Chair Diller Work Phone: [facility] 10-08-2022 11:07-0400 Respiratory rate 18 /min Chair Diller Work Phone: [facility] 10-08-2022 11:07-0400 SaO2% (BldA) [Mass fraction] 99 % Chair Diller Work Phone: [facility] 10-08-2022 11:07-0400 Systolic blood pressure 129 mm[Hg] Chair Diller Work Phone: [facility] 10-08-2022 10:48-0400 Body temperature 97.2 [degF] NA Engeler MD Work Phone: [facility] 10-08-2022 10:48-0400 Body weight 79.65 kg BARRON Feliz MD Work Phone: [facility] 10-08-2022 10:48-0400 Diastolic blood pressure 80 mm[Hg] BARRON Feliz MD Work Phone: [facility] 10-08-2022 10:48-0400 Heart rate 67 /min BARRON Feliz MD Work Phone: [facility] 10-08-2022 10:48-0400 Respiratory rate 16 /min BARRON Feliz MD Work Phone: [facility] 10-08-2022 10:48-0400 SaO2% (BldA) [Mass fraction] 99 % BARRON Feliz MD Work Phone: [facility] 10-08-2022 10:48-0400 Systolic blood pressure 145 mm[Hg] BARRON Feliz MD Work Phone: [facility] 10-01-2022 11:40-0400 Body height 166.9 cm Natalie Cadena APRN.INJECTION MOLDING MACHINE SETTER Work Phone: [facility] 10-01-2022 11:40-0400 Body temperature 96.91 [degF] Natalie Cadena APRN.INJECTION MOLDING MACHINE SETTER Work Phone: [facility] 10-01-2022 11:40-0400 Body weight 80.29 kg Natalie Cadena APRN.INJECTION MOLDING MACHINE SETTER Work Phone: [facility] 10-01-2022 11:40-0400 Diastolic blood pressure 78 mm[Hg] Natalie Cadena APRN.INJECTION MOLDING MACHINE SETTER Work Phone: [facility] 10-01-2022 11:40-0400 Heart rate 74 /min Natalie Cadena APRN.INJECTION MOLDING MACHINE SETTER Work Phone: [facility] 10-01-2022 11:40-0400 Respiratory rate 16 /min Natalie Cadena APRN.INJECTION MOLDING MACHINE SETTER Work Phone: [facility] 10-01-2022 11:40-0400 SaO2% (BldA) [Mass fraction] 99 % Natalie Cadena RECORDER GRAVITY PROSPECTING.INJECTION MOLDING MACHINE SETTER Work Phone: [facility] 10-01-2022 11:40-0400 Systolic blood pressure 129 mm[Hg] Natalie Cadena APRN.INJECTION MOLDING MACHINE SETTER Work Phone: [facility] 10-01-2022 10:47-0400 Body temperature 96.91 [degF] BARRON Feliz MD Work Phone: [facility] 10-01-2022 10:47-0400 Body weight 80.65 kg BARRON Feliz MD Work Phone: [facility] 10-01-2022 10:47-0400 Diastolic blood pressure 78 mm[Hg] BARRON Feliz MD Work Phone: [facility] 10-01-2022 10:47-0400 Heart rate 74 /min BARRON Feliz MD Work Phone: [facility] 10-01-2022 10:47-0400 Respiratory rate 16 /min BARRON Feliz MD Work Phone: [facility] 10-01-2022 10:47-0400 SaO2% (BldA) [Mass fraction] 99 % BARRON Feliz MD Work Phone: [facility] 10-01-2022 10:47-0400 Systolic blood pressure 129 mm[Hg] BARRON Feliz MD Work Phone: [facility] 09-24-2022 10:40-0400 Body temperature 97.59 [degF] BARRON Feliz MD Work Phone: [facility] 09-24-2022 10:40-0400 Body weight 83.46 kg BARRON Feliz MD Work Phone: [facility] 09-24-2022 10:40-0400 Diastolic blood pressure 68 mm[Hg] BARRON Feliz MD Work Phone: [facility] 03-20-2023 10:40-0400 Heart rate 83 /min BARRON Feliz MD Work Phone: [facility] 09-24-2022 10:40-0400 Respiratory rate 18 /min BARRON Feliz MD Work Phone: [facility] 09-24-2022 10:40-0400 SaO2% (BldA) [Mass fraction] 98 % BARRON Feliz MD Work Phone: [facility] 09-24-2022 10:40-0400 Systolic blood pressure 133 mm[Hg] BARRON Feliz MD Work Phone: [facility] 09-17-2022 11:03-0400 Body temperature 97.7 [degF] BARRON Feliz MD Work Phone: [facility] 09-17-2022 11:03-0400 Body weight 84.82 kg BARRON Feliz MD Work Phone: [facility] 09-17-2022 11:03-0400 Diastolic blood pressure 73 mm[Hg] BARRON Feliz MD Work Phone: [facility] 09-17-2022 11:03-0400 Heart rate 75 /min BARRON Feliz MD Work Phone: [facility] 09-17-2022 11:03-0400 Respiratory rate 18 /min BARRON Feliz MD Work Phone: [facility] 09-17-2022 11:03-0400 SaO2% (BldA) [Mass fraction] 95 % BARRON Feliz MD Work Phone: [facility] 09-17-2022 11:03-0400 Systolic blood pressure 167 mm[Hg] BARRON Feliz MD Work Phone: [facility] 09-10-2022 11:17-0500 Body temperature 97.81 [degF] BARRON Feliz MD Work Phone: [facility] 09-10-2022 11:17-0500 Body weight 85.73 kg BARRON Feliz MD Work Phone: [facility] 09-10-2022 11:17-0500 Diastolic blood pressure 81 mm[Hg] BARRON Feliz MD Work Phone: [facility] 09-10-2022 11:17-0500 Heart rate 72 /min BARRON Feliz MD Work Phone: [facility] 09-10-2022 11:17-0500 Respiratory rate 18 /min BARRON Feliz MD Work Phone: [facility] 09-10-2022 11:17-0500 SaO2% (BldA) [Mass fraction] 97 % BARRON Feliz MD Work Phone: [facility] 09-10-2022 11:17-0500 Systolic blood pressure 150 mm[Hg] BARRON Feliz MD Work Phone: [facility] 09-03-2022 11:09-0500 Body height 166.9 cm John England MD Work Phone: [facility] 09-03-2022 11:09-0500 Body temperature 97 [degF] John England MD Work Phone: [facility] 09-03-2022 11:09-0500 Body weight 83.46 kg John England MD Work Phone: [facility] 09-03-2022 11:09-0500 Diastolic blood pressure 74 mm[Hg] John England MD Work Phone: [facility] 09-03-2022 11:09-0500 Heart rate 70 /min John England MD Work Phone: [facility] 09-03-2022 11:09-0500 Respiratory rate 16 /min John England MD Work Phone: [facility] 09-03-2022 11:09-0500 SaO2% (BldA) [Mass fraction] 97 % John England MD Work Phone: [facility] 09-03-2022 11:09-0500 Systolic blood pressure 149 mm[Hg] John England MD Work Phone: [facility] 09-03-2022 09:57-0500 Body temperature 97 [degF] BARRON Feliz MD Work Phone: [facility] 09-03-2022 09:57-0500 Body weight 81.19 kg BARRON Feliz MD Work Phone: [facility] 09-03-2022 09:57-0500 Diastolic blood pressure 74 mm[Hg] BARRON Feliz MD Work Phone: [facility] 09-03-2022 09:57-0500 Heart rate 70 /min BARRON Feliz MD Work Phone: [facility] 09-03-2022 09:57-0500 Respiratory rate 16 /min BARRON Feliz MD Work Phone: [facility] 09-03-2022 09:57-0500 SaO2% (BldA) [Mass fraction] 97 % BARRON Feliz MD Work Phone: [facility] 09-03-2022 09:57-0500 Systolic blood pressure 149 mm[Hg] BARRON Feliz MD Work Phone: [facility] 08-16-2022 15:39-0500 Body height 168.9 cm John England MD Work Phone: [facility] 08-16-2022 15:39-0500 Body temperature 97.7 [degF] John England MD Work Phone: [facility] 08-16-2022 15:39-0500 Body weight 84.73 kg John England MD Work Phone: [facility] 08-16-2022 15:39-0500 Diastolic blood pressure 73 mm[Hg] John England MD Work Phone: [facility] 08-16-2022 15:39-0500 Heart rate 64 /min John England MD Work Phone: [facility] 08-16-2022 15:39-0500 Respiratory rate 16 /min John England MD Work Phone: [facility] 08-16-2022 15:39-0500 SaO2% (BldA) [Mass fraction] 97 % John England MD Work Phone: [facility] 08-16-2022 15:39-0500 Systolic blood pressure 156 mm[Hg] John England MD Work Phone: [facility] 08-14-2022 10:01-0500 Body height 168.9 cm BARRON Feliz MD Work Phone: [facility] 08-14-2022 10:01-0500 Body temperature 97.7 [degF] BARRON Feliz MD Work Phone: [facility] 08-14-2022 10:01-0500 Body weight 84.82 kg BARRON Feliz MD Work Phone: [facility] 08-14-2022 10:01-0500 Diastolic blood pressure 90 mm[Hg] BARRON Feliz MD Work Phone: [facility] 08-14-2022 10:01-0500 Heart rate 58 /min BARRON Feliz MD Work Phone: [facility] 08-14-2022 10:01-0500 Respiratory rate 16 /min BARRON Feliz MD Work Phone: [facility] 08-14-2022 10:01-0500 SaO2% (BldA) [Mass fraction] 99 % BARRON Feliz MD Work Phone: [facility] 08-14-2022 10:01-0500 Systolic blood pressure 167 mm[Hg] BARRON Feliz MD Work Phone: [facility] 06-13-2022 14:55-0500 Blood Pressure Location Renea PARTIDA [facility] 06-13-2022 14:55-0500 Diastolic blood pressure 60 mm[Hg] Renea PARTIDA [facility] [place] 06-13-2022 14:55-0500 Heart rate 60 /min Renea PARTIDA [facility] [place] 06-13-2022 14:55-0500 Respiratory rate 16 /min Renea PARTIDA [facility] [place] 06-13-2022 14:55-0500 Systolic blood pressure 120 mm[Hg] Renea MILLANL [facility] [place] Encounters Encounter Date Encounter Type Care Provider Facility Start: 01-19-2025 End: 01-19-2025 Bamboo flowsvivian Morales MD Work Phone: [facility] Start: 01-19-2025 End: 01-19-2025 Chidi Morales MD Work Phone: [facility] Start: 01-19-2025 End: 01-19-2025 ambulatory SERENE MORALES Not Available Start: 01-19-2025 End: 01-19-2025 Office outpatient visit 15 minutes Serene Morales MD Work Phone: [facility] Comment on above: 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) Start: 01-06-2025 End: 01-06-2025 Bamboo flowsheet Mason Johnson MD Work Phone: [facility] Start: 01-06-2025 End: 01-06-2025 Bamboo flowsheet Mason Johnson MD Work Phone: [facility] Start: 01-06-2025 End: 01-06-2025 Office outpatient visit 15 minutes Mason Johnson MD Work Phone: [facility] Comment on above: Left lumbar radiculi tis (Primary Dx); Left hip pain Start: 01-06-2025 End: 01-06-2025 ambulatory MASON JOHNSON Not Available Start: 12-28-2024 End: 12-28-2024 Clinisync Result Encounter Mason Johnson MD Work Phone: [facility] Unsolicited Start: 12-28-2024 End: 12-28-2024 Clinisync Result Encounter Mason Johnson MD Work Phone: [facility] Unsolicited Start: 12-28-2024 End: 12-28-2024 Office outpatient visit 25 minutes Mason Johnson MD Work Phone: [facility] Comment on above: Left hip pain (Prima ry Dx); Effusion of left knee; Acute pain of left knee Start: 12-28-2024 End: 12-28-2024 ambulatory MASON JOHNSON Not Available Start: 12-09-2024 End: 12-09-2024 Bamboo flowsheet Mason Johnson MD Work Phone: [facility] Start: 12-09-2024 End: 12-09-2024 Bamboo flowsheet Mason Johnson MD Work Phone: [facility] Start: 12-09-2024 End: 12-09-2024 Clinisync Result Encounter Mason Johnson MD Work Phone: [facility] Unsolicited Start: 12-09-2024 End: 12-09-2024 Office outpatient visit 25 minutes Mason Johnson MD Work Phone: [facility] Comment on above: Inflammatory arthrit is (Primary Dx); Effusion of left knee; Acute pain of left knee; 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, without long-term current use of insulin ([facility]) Start: 12-09-2024 End: 12-09-2024 ambulatory MASON JOHNSON Not Available Start: 12-02-2024 End: 12-02-2024 Clinisync Result Encounter Generic External Data Provider [facility] Unsolicited Start: 12-02-2024 End: 12-02-2024 Clinisync Result Encounter Generic External Data Provider [facility] Unsolicited Start: 12-02-2024 End: 12-02-2024 ambulatory MASON JOHNSON II Facility:[facility] Start: 11-04-2024 End: 11-04-2024 Office outpatient visit 15 minutes Yordan Feliz MD Work Phone: Radiation Oncology Comment on above: Acquired hypothyroid ism (Primary Dx) Start: 11-04-2024 End: 11-04-2024 Office outpatient visit 25 minutes John England MD Work Phone: Hematology/Oncology Comment on above: 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); Lung nodules; Stage 3 chronic kidney disease, unspecified whether stage 3a or 3b CKD (HCC) Start: 11-04-2024 End: 11-04-2024 ambulatory Yordan FELIZ Facility:[facility] Start: 10-28-2024 End: 10-28-2024 Clinisync Result Encounter Generic External Data Provider [facility] Unsolicited Start: 10-28-2024 End: 10-28-2024 Clinisync Result Encounter Generic External Data Provider [facility] External [facility] Unsolicited Start: 10-28-2024 ambulatory MASON JOHNSON II Facil ity:[facility] Start: 10-26-2024 End: 10-26-2024 Bamboo flowsheet Mason Johnson MD Work Phone: [facility] Start: 10-26-2024 End: 10-26-2024 Bamboo flowsheet Mason Johnson MD Work Phone: [facility] Start: 10-26-2024 End: 10-26-2024 Office outpatient visit 15 minutes Mason Johnson MD Work Phone: [facility] Comment on above: 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); Neck pain on left side; Left hip pain; Spondylosis of cervical region without myelopathy or radiculopathy; Rheumatoid arthritis, unspecified Start: 10-26-2024 End: 10-26-2024 ambulatory MASON JOHNSON Not Available Start: 10-20-2024 End: 10-20-2024 Bamboo flowsheet Serene Morales MD Work Phone: [facility] Start: 10-20-2024 End: 10-20-2024 Bamboo flowsheet Serene Morales MD Work Phone: [facility] Start: 10-20-2024 End: 10-20-2024 ambulatory SERENE MORALES Not Available Start: 10-20-2024 End: 10-20-2024 Office outpatient visit 15 minutes Serene Morales MD Work Phone: [facility] Comment on above: 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) Start: 10-13-2024 End: 10-13-2024 Clinisync Result Encounter Mason Johnson MD Work Phone: [facility] Unsolicited Start: 10-13-2024 End: 10-13-2024 Clinisync Result Encounter Mason Johnson MD Work Phone: [facility] Unsolicited Start: 10-12-2024 End: 10-12-2024 Office outpatient visit 25 minutes Mason Johnson MD Work Phone: [facility] Comment on above: Neck pain on left si de (Primary Dx); Left hip pain; Osteoarthritis, unspecified osteoarthritis type, unspecified site; Stress incontinence of urine Start: 10-12-2024 End: 10-12-2024 ambulatory MASON JOHNSON Not Available Start: 10-12-2024 End: 10-12-2024 Bamboo flowsheet Mason Johnson MD Work Phone: [facility] [facility] Start: 10-12-2024 End: 10-12-2024 Bamboo flowsheet Mason Johnson MD Work Phone: [facility] Start: 09-17-2024 End: 09-17-2024 Bamboo flowsheet Barry A Felter RECORDER GRAVITY PROSPECTING-INJECTION MOLDING MACHINE SETTER Work Phone: [facility] Start: 09-17-2024 End: 09-17-2024 Bamboo flowsheet Barry A Felter RECORDER GRAVITY PROSPECTING-INJECTION MOLDING MACHINE SETTER Work Phone: [facility] Start: 09-17-2024 End: 09-17-2024 ambulatory BARRY A FELTER Not Available Start: 09-17-2024 End: 09-17-2024 Office outpatient visit 10 minutes Barry Stevens RECORDER GRAVITY PROSPECTING-INJECTION MOLDING MACHINE SETTER Work Phone: [facility] Comment on [...] keratosis Start: 08-31-2024 End: 08-31-2024 ambulatory MASON JOHNSON Not Available Start: 07-21-2024 End: 07-21-2024 Office outpatient visit 15 minutes Serene Morales MD Work Phone: [facility] Comment on above: 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) Start: 07-21-2024 End: 07-21-2024 ambulatory SERENE MOARLES Not Available Start: 07-21-2024 End: 07-21-2024 Bamboo flowsheet Serene Morales MD Work Phone: [facility] Start: 07-21-2024 End: 07-21-2024 Bamboo flowsheet Serene Morales MD Work Phone: [facility] Start: 07-15-2024 End: 07-15-2024 Clinical Support Mannie Rodriguez TREATMENT PLANT MECHANIC Work Phone: [facility] Comment on above: Need for vaccination Start: 06-16-2024 End: 06-16-2024 Bamboo flowsvivian Morales MD Work Phone: [facility] Start: 06-16-2024 End: 06-16-2024 Bamboo flowsvivian Morales MD Work Phone: [facility] Start: 06-16-2024 End: 06-16-2024 ambulatory SERENE MORALES Not Available Start: 06-16-2024 End: 06-16-2024 Office outpatient visit 15 minutes Serene Morales MD Work Phone: [facility] Comment on above: 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) Start: 05-26-2024 End: 05-26-2024 Bamboo flowsheet Barry A Felter RECORDER GRAVITY PROSPECTING-INJECTION MOLDING MACHINE SETTER Work Phone: [facility] Start: 05-26-2024 End: 05-26-2024 Bamboo flowsheet Barry A Felter RECORDER GRAVITY PROSPECTING-INJECTION MOLDING MACHINE SETTER Work Phone: [facility] Start: 05-26-2024 End: 05-26-2024 ambulatory BARRY A FELTER Not Available Start: 05-26-2024 End: 05-26-2024 Office outpatient visit 10 minutes Barry A Felter RECORDER GRAVITY PROSPECTING-INJECTION MOLDING MACHINE SETTER Work Phone: [facility] Comment on [...] Start: 05-18-2024 End: 05-18-2024 Refill Madonna Mitchell TREATMENT PLANT MECHANIC Work Phone: [facility] Comment on above: Primary hypertension (CMS/HCC) Start: 05-06-2024 End: 05-06-2024 Office outpatient visit 25 minutes John England MD Work Phone: Hematology/Oncology Comment on above: 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); Lung nodules; Stage 3 chronic kidney disease, unspecified whether stage 3a or 3b CKD (HCC) Start: 05-06-2024 End: 05-06-2024 ambulatory JOHN ENGLAND Facility:[facility] Start: 05-06-2024 End: 05-06-2024 Patient encounter procedure G Jeyson Feliz MD Work Phone: Radiation Oncology Comment on above: Head and neck cancer (HCC) (Primary Dx) Start: 04-30-2024 End: 04-30-2024 Bamboo flowsheet Mason [...] complication, without long-term current use of insulin ([facility]); 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 ([facility]) Start: 04-23-2024 End: 04-23-2024 Clinisync Result Encounter Generic External Data Provider [facility] External Department Unsolicited Start: 04-23-2024 End: 04-23-2024 Clinisync Result Encounter Generic External Data Provider [facility] External Department Unsolicited Start: 04-23-2024 End: 04-23-2024 ambulatory JOHN ABHYANKAR Facility:[facility] Start: 04-23-2024 End: 04-23-2024 Subsequent hospital visit by physician Arrival Time Radiology Work Phone: Radiology Pet CT Comment on above: 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] Start: 04-21-2024 End: 04-21-2024 Bamboo flowsvivian Morales MD Work Phone: [facility] Start: 04-21-2024 End: 04-21-2024 Bamboo flowsvivian Morales MD Work Phone: [facility] Start: 04-21-2024 End: 04-21-2024 ambulatory SERENE MORALES Not Available Start: 04-21-2024 End: 04-21-2024 Office outpatient visit 15 minutes Serene Morales MD Work Phone: [facility] Comment on above: Cancer of base of to ngue ([facility]) (Primary Dx) Start: 04-07-2024 End: 04-07-2024 ambulatory [facility] Work Phone: Start: 04-07-2024 End: 04-07-2024 Patient encounter procedure [facility] [place] Work Phone: Start: 03-24-2024 End: 03-24-2024 Bamboo flowsvivian Morales MD Work Phone: [facility] Start: 03-24-2024 End: 03-24-2024 Bamboo flowsheet Serene Morales MD Work Phone: [facility] Start: 03-24-2024 End: 03-24-2024 Office outpatient visit 15 minutes Serene Morales MD Work Phone: [facility] Comment on above: 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) Start: 03-24-2024 End: 03-24-2024 ambulatory SERENE H TIMMIS Not Available Start: 03-04-2024 End: 03-04-2024 Clinisync Result Encounter Shaikh Vidal WELCH Work Phone: [facility] External Department Unsolicited Start: 03-04-2024 End: 03-04-2024 Clinisync Result Encounter Shaikh Vidal WELCH Work Phone: [facility] External Department Unsolicited Start: 02-25-2024 End: 02-25-2024 Bamboo flowsheet Serene Morales MD Work Phone: [facility] Start: 02-25-2024 End: 02-25-2024 Bamboo flowsvivian Morales MD Work Phone: [facility] Start: 02-25-2024 End: 02-25-2024 ambulatory SERENE H TIMMIS Not Available Start: 02-25-2024 End: 02-25-2024 Office outpatient visit 15 minutes Serene Morales MD Work Phone: [facility] Comment on above: 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) Start: 01-14-2024 End: 01-14-2024 ambulatory [facility] Work Phone: Start: 01-14-2024 End: 01-14-2024 Patient encounter procedure [facility] [place] Work Phone: Start: 11-06-2023 End: 11-06-2023 Patient encounter procedure Yordan Feliz MD Work Phone: Radiation Oncology Comment on above: Head and neck cancer (HCC) (Primary Dx) Start: 10-23-2023 End: 10-23-2023 Office outpatient visit [...] Coordination (R esults) Start: 10-16-2023 End: 10-16-2023 Subsequent hospital visit by physician Arrival Time Radiology Work Phone: Radiology Pet CT Comment on above: Lung nodules [R91.8] Start: 06-12-2023 End: 06-12-2023 Subsequent hospital visit by physician Arrival Time Radiology Work Phone: Radiology Pet CT Comment on above: 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] Start: 06-10-2023 Patient encounter procedure Serene Morales MD Work Phone: [facility] Start: 05-08-2023 End: 05-08-2023 Patient encounter [...] 2 diabetes mellitus without complication, unspecified whether nursing home insulin use (HCC); Unspecified essential hypertension Lung [...] Start: 10-31-2022 End: 10-31-2022 Patient encounter procedure Natalie Cadena APRN.CNP Work Phone: [place] Comment on above: Head and neck cancer (HCC) (Primary Dx) Start: 10-25-2022 End: 10-25-2022 ambulatory Natalie Cadena APRN.PEEWEE Work Phone: Hematology/Oncology Comment on above: 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); Chemotherapy-induced neutropenia (HCC) Start: 10-25-2022 End: 10-25-2022 Patient encounter procedure Natalie Cadena APRN.CNP Work Phone: [place] Start: 10-22-2022 Patient encounter [...] (Primary Dx) Start: 09-07-2022 Telephone encounter Marysol SHRESTHAW H ematology/Oncology Comment on above: Social Work [...] Start: 08-24-2022 Patient encounter procedure [facility] Provider [facility] Department Start: 08-23-2022 End: 08-23-2022 Subsequent hospital [...] Start: 08-17-2022 Patient encounter procedure [facility] Provider [facility] Department Start: 08-16-2022 End: 08-16-2022 Office outpatient new 60 minutes John England MD Work Phone: Hematology/Oncology Comment on above: 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) Start: 08-15-2022 Patient encounter procedure [facility] Provider [facility] Department Start: 08-15-2022 Telephone encounter Yordan Feliz MD Work Phone: Radiation Oncology Comment on above: Dental Clearance - R adiation Therapy Start: 08-14-2022 ambulatory Nela Antoine RN Radiati on Oncology Comment on above: Patient Education Start: 08-14-2022 End: 08-14-2022 Patient encounter procedure Yordan Feliz MD Work Phone: Radiation Oncology Comment on above: Tongue cancer (HCC) (Primary Dx); Head and neck cancer (HCC) Start: 08-01-2022 Encounter for preprocedural laboratory examination DR SERENE MORALES [facility] Start: 07-31-2022 End: 07-31-2022 Patient encounter procedure Renea PARTIDA General Surgery Nill/Said Bull Start: 07-31-2022 End: 07-31-2022 ambulatory Renea PARTIDA [facility] Start: 07-27-2022 End: 07-28-[address] SERENE MORALES Facility:[facility] Start: 07-27-2022 End: 07-28-2022 Encounter for preprocedural laboratory examination DR SERENE MORALES Facility:[facility] Start: 07-18-2022 End: 07-19-2022 ambulatory Renea PARTIDA Facility:[id number] Start: 07-11-2022 End: 07-12-[address] RENEA PARTIDA Facility:[facility] Start: 06-13-2022 End: 06-14-2022 ambulatory Renea PARTIDA Facility:[facility] Start: 06-13-2022 End: 06-13-2022 Patient encounter procedure Renea PARTIDA General Surgery Nill/Said Bull Start: 06-09-2022 End: 06-10-[address] MANNIE NELSON Facility:[facility] Start: 06-06-2022 ambulatory Renea PARTIDA Facility:[facility] Start: 02-27-2022 End: 02-28-[address] MANNIE NELSON Facility:[facility] Procedures Date Procedure Procedure Detail Performing Clinician Start: 12-28-2024 XR LUMBAR SPINE 2 OR 3V Mason Johnson MD Work Phone: Start: 12-09-2024 Radiologic examinati on knee 3 views Mason Johnson MD Work Phone: Start: 12-09-2024 Hemoglobin glycosylated a1c Mason Johnson MD Work Phone: Start: 12-02-2024 [facility] T3 [facility] Gener ic External Data Provider Start: 12-02-2024 [facility] T4 [facility] Gener ic External Data Provider Start: 12-02-2024 [facility] TSH [facility] Gene kiana External Data Provider Start: 10-28-2024 CT NECK SOFT TISSUE W IVCON Generic External Data Provider Start: 10-28-2024 Ct thorax w/contrast material Generic External Data Provider Start: 10-28-2024 [facility] CBC W AUTO DIFF BLD Generic External Data Provider Start: 10-13-2024 XR CERVICAL SPINE 2-3V Mason Johnson MD Work Phone: Start: 10-13-2024 XR HIP LT MIN 2V Mason Johnson MD Work Phone: Start: 09-17-2024 End: 09-17-2024 CRYOTHERAPY SKIN LESION Barry Pierreer RECORDER GRAVITY PROSPECTING-INJECTION MOLDING MACHINE SETTER Work Phone: Start: 08-31-2024 Hemoglobin glycosylated a1c Mason Johnson MD Work Phone: Start: 05-26-2024 CRYOTHERAPY SKIN LESION Barry Pierreer RECORDER GRAVITY PROSPECTING-INJECTION MOLDING MACHINE SETTER Work Phone: Start: 04-23-2024 Ct soft tissue [...] ct atten uation skull base mid-thigh G Jesyon Feliz MD Work Phone: Start: 08-27-2022 Gluc bld gluc mntr d ev cleared fda spec home use [facility] Provider Start: 02-27-[address] MANNIE HO Comment on above: Performed By: #### P SAD #### [facility] [address] [place] [address] Dr. 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 Bilateral extraction of cataracts Renea PARTIDA Plan of Treatment Date Care Activity Detail Author Start: 10-29-2027 Diabetes Screening Diabetes Screening [facility] Start: 04-23-2027 Diabetes Screening Diabetes Screening [facility] Start: 10-15-2026 Diabetes Screening Diabetes Screening [facility] Start: 02-06-2026 DIABETES SCREEN DIABETES SCREEN [facility] Start: 02-06-2026 Diabetes Screening Diabetes Screening [facility] Start: 11-07-2025 DIABETES SCREEN DIABETES SCREEN [facility] Start: 10-31-2025 DIABETES SCREEN DIABETES SCREEN [facility] Start: 10-25-2025 DIABETES SCREEN DIABETES SCREEN [facility] Start: 10-19-2025 DIABETES SCREEN DIABETES SCREEN [facility] Start: 10-08-2025 DIABETES SCREEN DIABETES SCREEN [facility] Start: 10-01-2025 DIABETES SCREEN DIABETES SCREEN [facility] Start: 09-24-2025 DIABETES SCREEN DIABETES SCREEN [facility] Start: 09-17-2025 DIABETES SCREEN DIABETES SCREEN [facility] Start: 09-10-2025 DIABETES SCREEN DIABETES SCREEN [facility] Start: 09-03-2025 DIABETES SCREEN DIABETES SCREEN [facility] Start: 08-31-2025 Medicare Annual Wellness (AWV) Medicare Annual Wellness (AWV) [facility] Start: 08-23-2025 DIABETES SCREEN DIABETES SCREEN [facility] Start: 06-10-2025 Hemoglobin A1c measurement Diabetes: Hemoglobin A1C [facility] Start: 05-25-2025 End: 05-25-2025 Patient encounter procedure 05/25/2025 9:20 AM EST Office Visit [facility] [address] [place] [address] Barry Stevens APRN-INJECTION MOLDING MACHINE SETTER [address] [place] [address] [facility] Start: 05-06-2025 End: 11-04-2025 CBC W Auto Differential panel - Blood COMPLETE BLOOD COUNT AND DIFFERENTIAL Lab Routine 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 Stage 3 chronic kidney disease, unspecified whether stage 3a or 3b CKD (HCC) Expected: 05/06/2025 (Approximate), Expires: 11/04/2025 [facility] Work Phone: Comment on above: Expected: 05/06/2025 (Approximate), Expi res: 11/04/2025 Start: 05-06-2025 End: 11-04-2025 Comprehensive metabolic 2000 panel - Serum or Plasma COMPREHENSIVE METABOLIC PANEL Lab Routine 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 Stage 3 chronic kidney disease, unspecified whether stage 3a or 3b CKD (HCC) Expected: 05/06/2025 (Approximate), Expires: 11/04/2025 [facility] Comment on above: Expected: 05/06/2025 (Approximate), Expi res: 11/04/2025 Start: 05-06-2025 End: 12-04-2025 CT Chest W contrast IV CT CHEST W IVCON Radiology Routine 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 Stage 3 chronic kidney disease, unspecified whether stage 3a or 3b CKD (HCC) Expected: 05/06/2025 (Approximate), Expires: 12/04/2025 [facility] Comment on above: Expected: 05/06/2025 (Approximate), Expi res: 12/04/2025 Start: 05-06-2025 End: 12-04-2025 CT Neck W contrast IV CT NECK SOFT TISSUE W IVCON Radiology Routine 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 Stage 3 chronic kidney disease, unspecified whether stage 3a or 3b CKD (HCC) Expected: 05/06/2025 (Approximate), Expires: 12/04/2025 [facility] Comment on above: Expected: 05/06/2025 (Approximate), Expi res: 12/04/2025 Start: 05-06-2025 End: 05-06-2025 Patient encounter procedure 05/06/2025 10:30 AM EDT Office Visit Radiation Oncology [address] [place] [address] Yoradn Feliz MD [address] [place] [address] 3 month follow up Radiation Oncology Comment on above: 3 month follow up Start: 05-06-2025 End: 05-06-2025 Follow-up encounter 05/06/2025 10:00 AM EDT Visit (SP) Office Hematology/Oncology [address] [place] [address] John England MD [address] [place] [address] 6 MONTH FOLLOW UP AFTER CT SCAN Hematology/Oncology Comment on above: 6 MONTH FOLLOW UP AFTER CT SCAN Start: 04-29-2025 End: 04-29-2025 Patient encounter procedure 04/29/2025 9:15 AM EDT Appointment Radiology Pet CT [address] [place] [address] CT CHEST AND NECK Radiology Pet CT Comment on above: CT CHEST AND NECK Start: 04-23-2025 Complete blood count Hemoglobin/Hematocrit [facility] Start: 04-23-2025 Creatinine measurement Serum Creatinine [facility] Start: 04-20-2025 End: 04-20-2025 Patient encounter procedure 04/20/2025 8:00 AM EDT Office Visit [facility] [address] [facility] [address] [place] [address] Serene Morales MD [address] [facility] [address] [place] [address] [facility] Start: 03-08-2025 Influenza vaccination Influenza Vaccine (#1) [facility] Start: 08-24-2025 Hemoglobin A1c measurement Diabetes: Hemoglobin A1C [facility] Start: 01-19-2025 End: 01-19-2025 Patient encounter procedure 01/19/2025 8:00 AM EDT Office Visit [facility] [address] [place] [address] Serene Morales MD [address] [place] [address] [facility] Start: 01-06-2025 End: 01-06-2025 Patient encounter procedure [facility] Comment on above: Left hip pain Start: 12-28-2024 End: 12-28-2025 XR Lumbar spine 2 or 3 Views XR lumbar spine 2 or 3 views Imaging Routine Left hip pain Expected: 12/28/2024, Expires: 12/28/2025 [facility] Work Phone: Comment on above: Expected: 12/28/2024, Expires: Start: 12-28-2024 End: 12-28-2024 Patient encounter procedure 12/28/2024 9:30 AM EDT Office Visit [facility] [address] [facility] [address] [place] [address] Mason Johnson MD [address] [facility] [address] [place] [address] [facility] Start: 12-09-2024 End: 12-09-2025 C reactive protein [Mass/volume] in Serum or Plasma C-reactive protein Lab Routine Inflammatory arthritis Expected: 12/09/2024 (Approximate), Expires: 12/09/2025 [facility] Comment on above: Expected: 12/09/2024 (Approximate), Expi res: 12/09/2025 Start: 12-09-2024 End: 12-09-2025 Erythrocyte sedimentation rate Sedimentation rate, automated Lab Routine Inflammatory arthritis Expected: 12/09/2024 (Approximate), Expires: 12/09/2025 [facility] Comment on above: Expected: 12/09/2024 (Approximate), Expi res: 12/09/2025 Start: 12-09-2024 End: 12-09-2025 Nuclear Ab [Titer] in Serum by Immunofluorescence RAFAEL Lab Routine Inflammatory arthritis Expected: 12/09/2024 (Approximate), Expires: 12/09/2025 [facility] Comment on above: Expected: 12/09/2024 (Approximate), Expi res: 12/09/2025 Start: 12-09-2024 End: 12-09-2025 RHEUMATOID ARTHRITIS DIAGNOSTIC PANEL 3 RHEUMATOID ARTHRITIS DIAGNOSTIC PANEL 3 Lab Routine Inflammatory arthritis Expected: 12/09/2024 (Approximate), Expires: 12/09/2025 [facility] Work Phone: Comment on above: Expected: 12/09/2024 (Approximate), Expi res: 12/09/2025 Start: 12-09-2024 End: 12-09-2025 Urate [Mass/volume] in Serum or Plasma Uric acid Lab Routine Inflammatory arthritis Expected: 12/09/2024 (Approximate), Expires: 12/09/2025 [facility] Comment on above: Expected: 12/09/2024 (Approximate), Expi res: 12/09/2025 Start: 12-09-2024 End: 12-09-2025 XR Knee - left 3 Views XR knee 3 views left Imaging Routine Effusion of left knee Acute pain of left knee Expected: 12/09/2024, Expires: 12/09/2025 [facility] Comment on above: Expected: 12/09/2024, Expires: Start: 12-09-2024 End: 12-09-2024 Patient encounter procedure [facility] Comment on above: Arrived Start: 12-04-2024 End: 11-04-2025 Thyrotropin [Units/volume] in Serum or Plasma THYROID STIMULATING HORMONE Lab Routine Acquired hypothyroidism Expected: 12/04/2024, Expires: 11/04/2025 [facility] Work Phone: Comment on above: Expected: 12/04/2024, Expires: Start: 12-04-2024 End: 11-04-2025 Thyroxine (T4) [Mass/volume] in Serum or Plasma T4/THYROXINE Lab Routine Acquired hypothyroidism Expected: 12/04/2024, Expires: 11/04/2025 [facility] Comment on above: Expected: 12/04/2024, Expires: Start: 12-04-2024 End: 11-04-2025 Triiodothyronine (T3) [Mass/volume] in Serum or Plasma T3 Lab Routine Acquired hypothyroidism Expected: 12/04/2024, Expires: 11/04/2025 [facility] Comment on above: Expected: 12/04/2024, Expires: Start: 12-02-2024 End: 12-02-2024 Patient encounter procedure 12/02/2024 11:30 AM EDT Office Visit [facility] [address] [place] [address] [place] [address] lab [facility] Comment on above: lab Start: 11-04-2024 End: 05-06-2025 CBC W Auto Differential panel - Blood COMPLETE BLOOD COUNT AND DIFFERENTIAL Lab Routine 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 Stage 3 chronic kidney disease, unspecified whether stage 3a or 3b CKD (HCC) Expected: 11/04/2024 (Approximate), Expires: 05/06/2025 [facility] Comment on above: Expected: 11/04/2024 (Approximate), Expi res: 05/06/2025 Start: 11-04-2024 End: 05-06-2025 Comprehensive metabolic 2000 panel - Serum or Plasma COMPREHENSIVE METABOLIC PANEL Lab Routine 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 Stage 3 chronic kidney disease, unspecified whether stage 3a or 3b CKD (HCC) Expected: 11/04/2024 (Approximate), Expires: 05/06/2025 [facility] Comment on above: Expected: 11/04/2024 (Approximate), Expi res: 05/06/2025 Start: 11-04-2024 End: 06-05-2025 CT Chest W contrast IV CT CHEST W IVCON Radiology Routine 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 Stage 3 chronic kidney disease, unspecified whether stage 3a or 3b CKD (HCC) Expected: 11/04/2024 (Approximate), Expires: 06/05/2025 [facility] Comment on above: Expected: 11/04/2024 (Approximate), Expi res: 06/05/2025 Start: 11-04-2024 End: 06-05-2025 CT Neck W contrast IV CT NECK SOFT TISSUE W IVCON Radiology Routine 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 Stage 3 chronic kidney disease, unspecified whether stage 3a or 3b CKD (HCC) Expected: 11/04/2024 (Approximate), Expires: 06/05/2025 [facility] Work Phone: Comment on above: Expected: 11/04/2024 (Approximate), Expi res: 06/05/2025 Start: 11-04-2024 End: 11-04-2024 Patient encounter procedure 11/04/2024 11:45 AM EDT Office Visit Radiation Oncology [address] [place] [address] Yordan Feliz MD [address] [facility] [place] [address] 6 month Follow up Radiation Oncology Comment on above: 6 month Follow up Start: 11-04-2024 End: 11-04-2024 ambulatory 11/04/2024 11:20 AM EDT Visit (SP) Office Hematology/Oncology [address] [facility] [place] [address] John England MD [address] [place] [address] PT SEES DENA BEFORE SINCERE TODAY Hematology/Oncology Comment on above: PT SEES DENA BEFORE SINCERE TODAY Start: 10-28-2024 End: 10-28-2024 Patient encounter procedure 10/28/2024 7:45 AM EDT Appointment Radiology Pet CT [address] [facility] [place] [address] CT CHEST AND NECK Radiology Pet CT Comment on above: CT CHEST AND NECK Start: 10-26-2024 End: 10-26-2024 Patient encounter procedure [facility] Comment on above: Neck pain on left side; Left hip pain Start: 10-20-2024 End: 10-20-2024 Patient encounter procedure 10/20/2024 8:00 AM EDT Office Visit [facility] [address] [place] [address] Serene Morales MD [address] [facility] [address] [place] [address] [facility] Start: 10-15-2024 Complete blood count Hemoglobin/Hematocrit [facility] Start: 10-15-2024 Creatinine measurement Serum Creatinine [facility] Start: 10-12-2024 End: 10-12-2024 Patient encounter procedure 10/12/2024 3:45 PM EDT Office Visit [facility] [address] [facility] [address] [place] [id number] Mason Johnson MD [address] [facility] [address] [place] [address] Arrived [facility] Comment on above: Arrived Start: 10-12-2024 End: 10-12-2025 XR Cervical spine 2 or 3 Views XR cervical spine 2 or 3 views Imaging Routine Neck pain on left side Expected: 10/12/2024, Expires: 10/12/2025 [facility] Comment on above: Expected: 10/12/2024, Expires: Start: 10-12-2024 End: 10-12-2025 XR Hip - left 3 Views XR hip left 2 or 3 views Imaging Routine Left hip pain Expected: 10/12/2024, Expires: 10/12/2025 [facility] Work Phone: Comment on above: Expected: 10/12/2024, Expires: Start: 09-05-2024 Glaucoma screening Diabetes: Retinopathy Screening [facility] Start: 08-31-2024 End: 08-31-2024 Patient encounter procedure [facility] Comment on above: Arrived Start: 07-21-2024 End: 07-21-2024 Patient encounter procedure [facility] Comment on above: Arrived Start: 07-08-2024 Advance Directive Discussion Advance Directive Discussion [facility] Start: 06-16-2024 End: 06-16-2024 Patient encounter procedure 06/16/2024 9:00 AM EST Office Visit [facility] [address] [facility] [address] [place] [address] Serene Morales MD [address] [place] [address] [facility] Start: 06-10-2024 Medicare Annual Wellness (AWV) Medicare Annual Wellness (AWV) [facility] Start: 06-10-2024 Pneumococcal Vaccine: 65+ Years (1 of 2 - PCV) Pneumococcal Vaccine: 65+ Years (1 of 2 - PCV) [facility] Comment on above: Postponed from 10/31/1949 (Patient Refus ed) Start: 05-26-2024 End: 05-26-2024 Patient encounter procedure 05/26/2024 10:20 AM EST Office Visit [facility] [address] [place] [id number] Barry Stevens, RECORDER GRAVITY PROSPECTING-INJECTION MOLDING MACHINE SETTER [address] [place] [address] [facility] Start: 05-22-2024 Hemoglobin A1c measurement Diabetes: Hemoglobin A1C [facility] Start: 05-19-2024 End: 05-19-2024 Patient encounter procedure 05/19/2024 9:00 AM EST Office Visit [facility] [address] [place] [address] Serene Morales MD [address] [place] [address] [facility] Start: 05-06-2024 End: 05-06-2024 ambulatory 05/06/2024 3:20 PM EDT Visit (SP) Office Hematology/Oncology [address] [place] [address] John England MD [address] [place] [address] PT SEES DENA BEFORE SINCERE TODAY Hematology/Oncology Comment on above: PT SEES DENA BEFORE SINCERE TODAY Start: 05-06-2024 End: 05-06-2024 Patient encounter procedure 05/06/2024 3:00 PM EDT Office Visit Radiation Oncology [address] [place] [address] Yordan Feliz MD [address] [place] [address] PT SEES SINCERE AFTER THIS APPT Radiation Oncology Comment on above: PT SEES SINCERE AFTER THIS APPT Start: 04-30-2024 End: 04-30-2024 Patient encounter procedure [facility] Comment on above: Arrived Start: 04-29-2024 End: 04-29-2024 Patient encounter procedure 04/29/2024 10:30 AM EDT Office Visit Radiation Oncology [address] [place] [address] Yordan Feliz MD [address] [place] [address] Followup Radiation Oncology Comment on above: Followup Start: 04-29-2024 End: 04-29-2024 Follow-up encounter 04/29/2024 10:00 AM EDT Visit (SP) Office Hematology/Oncology [address] [place] [address] Jhon England MD [address] [place] [address] 6 month follow up after scans Hematology/Oncology Comment on above: 6 month follow up after scans Start: 04-23-2024 End: 10-22-2024 CBC W Auto Differential panel - Blood COMPLETE BLOOD COUNT AND DIFFERENTIAL Lab Routine 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 Expected: 04/23/2024 (Approximate), Expires: 10/22/2024 [facility] Work Phone: Comment on above: Expected: 04/23/2024 (Approximate), Expi res: 10/22/2024 Start: 04-23-2024 End: 10-22-2024 Cobalamin (Vitamin B12) [Mass/volume] in Serum or Plasma VITAMIN B12 Lab Routine 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 Expected: 04/23/2024 (Approximate), Expires: 10/22/2024 [facility] Work Phone: Comment on above: Expected: 04/23/2024 (Approximate), Expi res: 10/22/2024 Start: 04-23-2024 End: 10-22-2024 Comprehensive metabolic 2000 panel - Serum or Plasma COMPREHENSIVE METABOLIC PANEL Lab Routine 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 Expected: 04/23/2024 (Approximate), Expires: 10/22/2024 [facility] Work Phone: Comment on above: Expected: 04/23/2024 (Approximate), Expi res: 10/22/2024 Start: 04-23-2024 End: 11-21-2024 CT Chest W contrast IV CT CHEST W IVCON Radiology Routine 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 Expected: 04/23/2024 (Approximate), Expires: 11/21/2024 [facility] Work Phone: Comment on above: Expected: 04/23/2024 (Approximate), Expi res: 11/21/2024 Start: 04-23-2024 End: 11-21-2024 CT Neck W contrast IV CT NECK SOFT TISSUE W IVCON Radiology Routine 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 Expected: 04/23/2024 (Approximate), Expires: 11/21/2024 [facility] Work Phone: Comment on above: Expected: 04/23/2024 (Approximate), Expi res: 11/21/2024 Start: 04-23-2024 End: 10-22-2024 Ferritin [Mass/volume] in Serum or Plasma FERRITIN Lab Routine 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 Expected: 04/23/2024 (Approximate), Expires: 10/22/2024 [facility] Work Phone: Comment on above: Expected: 04/23/2024 (Approximate), Expi res: 10/22/2024 Start: 04-23-2024 End: 10-22-2024 Folate [Mass/volume] in Serum or Plasma FOLATE, SERUM Lab Routine 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 Expected: 04/23/2024 (Approximate), Expires: 10/22/2024 [facility] Work Phone: Comment on above: Expected: 04/23/2024 (Approximate), Expi res: 10/22/2024 Start: 04-23-2024 End: 10-22-2024 Iron and Iron binding capacity panel - Serum or Plasma IRON AND TIBC Lab Routine 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 Expected: 04/23/2024 (Approximate), Expires: 10/22/2024 [facility] Work Phone: Comment on above: Expected: 04/23/2024 (Approximate), Expi res: 10/22/2024 Start: 04-23-2024 End: 04-23-2024 Patient encounter procedure 04/23/2024 8:15 AM EDT Appointment Radiology Pet CT [address] [place] [address] [place] [address] CT CHEST AND NECK Radiology Pet CT Comment on above: CT CHEST AND NECK Start: 04-21-2024 End: 04-21-2024 Patient encounter procedure 04/21/2024 9:00 AM EDT Office Visit [facility] [address] [id number] Serene Morales MD [address] [address] [facility] Start: 03-24-2024 End: 03-24-2024 Patient encounter procedure [facility] Comment on above: [facility] Start: 03-08-2024 Covid-19 Vaccine () Covid-19 Vaccine () [facility] Start: 03-08-2024 Covid-19 Vaccine () Covid-19 Vaccine () [facility] Start: 03-08-2024 Influenza vaccination [facility] Start: 02-07-2024 SERUM CREATININE SERUM CREATININE [facility] Start: 02-07-2024 Urine screening for protein Diabetes: Urine Protein Screening [facility] Start: 11-08-2023 SERUM CREATININE SERUM CREATININE [facility] Start: 11-06-2023 End: 02-05-2024 Thyrotropin [Units/volume] in Serum or Plasma TSH BLD Lab Routine Other specified disorders of thyroid Expected: 11/06/2023 (Approximate), Expires: 02/05/2024 [facility] Work Phone: Comment on above: Expected: 11/06/2023 (Approximate), Expi res: 02/05/2024 Start: 11-06-2023 End: 02-05-2024 Thyroxine (T4) free [Mass/volume] in Serum or Plasma T4 FREE/FREE THYROX Lab Routine Other specified disorders of thyroid Expected: 11/06/2023 (Approximate), Expires: 02/05/2024 [facility] Work Phone: Comment on above: Expected: 11/06/2023 (Approximate), Expi res: 02/05/2024 Start: 11-06-2023 End: 02-05-2024 Triiodothyronine (T3) [Mass/volume] in Serum or Plasma T3 BLD Lab Routine Other specified disorders of thyroid Expected: 11/06/2023 (Approximate), Expires: 02/05/2024 [facility] Work Phone: Comment on above: Expected: 11/06/2023 (Approximate), Expi res: 02/05/2024 Start: 2023 HEMOGLOBIN/HEMATOCRIT HEMOGLOBIN/HEMATOCRIT [facility] Start: 2023 SERUM CREATININE SERUM CREATININE [facility] Start: 07-08-2023 Advance Directive Discussion Advance Directive Discussion [facility] Start: 07-08-2023 Behavioral Health Screening Behavioral Health Screening [facility] Start: 06-19-2023 End: 03-20-2024 CBC W Auto Differential panel - Blood CBC + DIFF Lab Routine Cancer of the base of tongue (HCC) Mass of right lung Expected: 06/19/2023 (Approximate), Expires: 03/20/2024 [facility] Work Phone: Comment on above: Expected: 06/19/2023 (Approximate), Expi res: 03/20/2024 Start: 06-19-2023 End: 03-20-2024 Comprehensive metabolic 2000 panel - Serum or Plasma COMP METABOLIC PANEL Lab Routine Cancer of the base of tongue (HCC) Mass of right lung Expected: 06/19/2023 (Approximate), Expires: 03/20/2024 [facility] Work Phone: Comment on above: Expected: 06/19/2023 (Approximate), Expi res: 03/20/2024 Start: 06-19-2023 End: 04-18-2024 CT CHEST W IVCON CT CHEST W IVCON Radiology Routine Cancer of the base of tongue (HCC) Mass of right lung Expected: 06/19/2023 (Approximate), Expires: 04/18/2024 [facility] Work Phone: Comment on above: Expected: 06/19/2023 (Approximate), Expi res: 04/18/2024 Start: 03-13-2023 End: 03-07-2024 CT CHEST W IVCON CT CHEST W IVCON Radiology Routine Lung nodules Expected: 03/13/2023 (Approximate), Expires: 03/07/2024 [facility] Work Phone: Comment on above: Expected: 03/13/2023 (Approximate), Expi res: 03/07/2024 Start: 03-08-2023 Covid-19 Vaccine ( season) Covid-19 Vaccine () [facility] Start: 03-08-2023 Influenza vaccination [facility] Start: 02-06-2023 End: 04-08-2023 ALBUMIN/CREAT RATIO RND UR [facility] Work Phone: Comment on above: Expected: 02/06/2023, Expires: Start: 02-06-2023 End: 04-08-2023 Creatinine [Mass/volume] in Urine collected for unspecified duration [facility] Work Phone: Comment on above: Expected: 02/06/2023, Expires: 3 Start: 02-06-2023 End: 04-08-2023 Hemoglobin A1c in Blood [facility] Work Phone: Comment on above: Expected: 02/06/2023, Expires: 3 Start: 02-06-2023 End: 04-08-2023 Lipid 1996 panel - Serum or Plasma [facility] Work Phone: Comment on above: Expected: 02/06/2023, Expires: 3 Start: 01-30-2023 End: 11-08-2023 CBC W Auto Differential panel - Blood CBC + DIFF Lab Routine Cancer of the base of tongue (HCC) Chemotherapy-induced neutropenia (HCC) Expected: 01/30/2023 (Approximate), Expires: 11/08/2023 [facility] Work Phone: Comment on above: Expected: 01/30/2023 (Approximate), Expi res: 11/08/2023 Start: 01-30-2023 End: 11-08-2023 Comprehensive metabolic 2000 panel - Serum or Plasma COMP METABOLIC PANEL Lab Routine Cancer of the base of tongue (HCC) Chemotherapy-induced neutropenia (HCC) Expected: 01/30/2023 (Approximate), Expires: 11/08/2023 [facility] Work Phone: Comment on above: Expected: 01/30/2023 (Approximate), Expi res: 11/08/2023 Start: 01-28-2023 End: 12-28-2023 NM PET/CT SKULL-THIGH SUBSEQUENT NM PET/CT SKULL-THIGH SUBSEQUENT Radiology Routine Cancer of the base of tongue (HCC) Expected: 01/28/2023, Expires: 12/28/2023 [facility] Work Phone: Comment on above: Expected: 01/28/2023, Expires: Start: 11-08-2022 End: 01-08-2023 CBC W Auto Differential panel - Blood CBC + DIFF Lab Routine Cancer of the base of tongue (HCC) Expected: 11/08/2022, Expires: 01/08/2023 [facility] Work Phone: Comment on above: Expected: 11/08/2022, Expires: 3 Start: 11-08-2022 End: 01-08-2023 Comprehensive metabolic 2000 panel - Serum or Plasma COMP METABOLIC PANEL Lab Routine 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) Expected: 11/08/2022, Expires: 01/08/2023 [facility] Work Phone: Comment on above: Expected: 11/08/2022, Expires: 3 Start: 10-26-2022 End: 12-26-2022 CBC W Auto Differential panel - Blood CBC + DIFF Lab Routine 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) Chemotherapy-induced neutropenia (HCC) Expected: 10/26/2022, Expires: 12/26/2022 [facility] Work Phone: Comment on above: Expected: 10/26/2022, Expires: 3 Start: 10-26-2022 End: 12-26-2022 Comprehensive metabolic 2000 panel - Serum or Plasma COMP METABOLIC PANEL Lab Routine 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) Chemotherapy-induced neutropenia (HCC) Expected: 10/26/2022, Expires: 12/26/2022 [facility] Work Phone: Comment on above: Expected: 10/26/2022, Expires: 3 Start: 07-08-2022 ADVANCE DIRECTIVE DISCUSSION ADVANCE DIRECTIVE DISCUSSION [facility] Start: 07-08-2022 DEPRESSION ASSESSMENT DEPRESSION ASSESSMENT [facility] Start: 2020 COVID-19 VACCINE (3 - Booster for Moderna series) COVID-19 VACCINE (3 - Booster for Moderna series) [facility] Start: 10-04-2020 COVID-19 VACCINE (3 - Moderna risk series) COVID-19 VACCINE (3 - Moderna risk series) [facility] Start: 10-31-2018 RSV Vaccine (1 - 1-dose 75+ series) RSV Vaccine (1 - 1-dose 75+ series) [facility] Start: 10-31-2008 Pneumococcal Vaccine: 65+ (1 of 1 - PCV) Pneumococcal Vaccine: 65+ (1 of 1 - PCV) [facility] Start: 10-31-2008 PNEUMOCOCCAL: 65+ (1 - PCV) PNEUMOCOCCAL: 65+ (1 - PCV) [facility] Start: 2003 RSV Vaccine (1 - 1-dose 60+ series) RSV Vaccine (1 - 1-dose 60+ series) [facility] Start: 10-31-1993 Pneumococcal Vaccine: 50+ (1 of 1 - PCV) Pneumococcal Vaccine: 50+ (1 of 1 - PCV) [facility] Start: 10-31-1993 SHINGRIX VACCINE (1 of 2) SHINGRIX VACCINE (1 of 2) [facility] Start: 10-31-1988 DIABETES SCREEN DIABETES SCREEN [facility] Start: 10-31-1962 Pneumococcal Vaccine: 65+ Years (1 of 2 - PCV) Pneumococcal Vaccine: 65+ Years (1 of 2 - PCV) [facility] Start: 10-31-1962 SHINGRIX VACCINE (1 of 2) SHINGRIX VACCINE (1 of 2) [facility] Start: 10-31-1962 Urine microalbumin profile [facility] Start: 10-31-1961 ANNUAL PCP TEAM CHRONIC DISEASE VISIT ANNUAL PCP TEAM CHRONIC DISEASE VISIT [facility] Start: 10-31-1961 Anxiety Screening Anxiety Screening [facility] Start: 10-31-1961 Depression Screening Depression Screening [facility] Start: 10-31-1961 HEPATITIS C SCREENING HEPATITIS C SCREENING [facility] Start: 10-31-1949 Pneumococcal Vaccine: 65+ (1 - PCV) Pneumococcal Vaccine: 65+ (1 - PCV) [facility] Start: 10-31-1949 Pneumococcal Vaccine: 65+ (1 of 2 - PCV) Pneumococcal Vaccine: 65+ (1 of 2 - PCV) [facility] Start: 10-31-1949 Pneumococcal Vaccine: 65+ Years (1 of 2 - PCV) Pneumococcal Vaccine: 65+ Years (1 of 2 - PCV) [facility] Start: 10-31-1949 PNEUMOCOCCAL: 65+ (1 - PCV) PNEUMOCOCCAL: 65+ (1 - PCV) [facility] End: 08-16-2023 CBC W Auto Differential panel - Blood CBC + DIFF Lab Routine Cancer of base of tongue (HCC) Once per week for 10 Occurrences starting 08/16/2022 until 08/16/2023, 1 completed [facility] Work Phone: Comment on above: Once per week for 10 Occurrences startin g 08/16/2022 until 08/16/2023, 1 completed CBC W Auto Different ial panel - Blood CBC + DIFF Lab Routine Cancer of base of tongue (HCC) 10/08/2022 11:35 AM EDT [facility] Work Phone: End: 08-16-2023 Comprehensive metabolic 2000 panel - Serum or Plasma COMP METABOLIC PANEL Lab Routine Cancer of base of tongue (HCC) Once per week for 10 Occurrences starting 08/16/2022 until 08/16/2023, 1 completed [facility] Work Phone: Comment on above: Once per week for 10 Occurrences startin g 08/16/2022 until 08/16/2023, [address] SIM PLANNING RADI ATION ONCOLOGY CT SIM PLANNING RADIATION ONCOLOGY Radiology Routine Tongue cancer (HCC) Ordered: 08/23/2022 [facility] Work Phone: Comment on above: Ordered: 08/23/2022 End: 09-13-[address] attenuation skull base mid-thigh NM PET/CT SKULL-THIGH INITIAL Radiology Routine Tongue cancer (HCC) Head and neck cancer (HCC) 1 Occurrences starting 08/14/2022 until 09/13/2023 [facility] Work Phone: Comment on above: 1 Occurrences starting 08/14/2022 until 09/13/2023 Prostate specific Ag [Mass/volume] in Serum or Plasma PSA Lab Routine Prostate cancer screening Ordered: 08/31/2024 [facility] Work Phone: Comment on above: Ordered: 08/31/2024 [facility] Immunizations Immunization Date Immunization Notes Care Provider Rashmi mayer 07-15-2024 Influenza, High-dose Seasonal, Quadrivalent, Preservative Free Mannie Rodriguez NP Work Phone: [facility] 07-15-2024 influenza virus vaccine, unspecified formulation Mason Johnson MD Work Phone: [facility] 06-20-2023 Influenza, Seasonal, Quadrivalent, Adjuvanted Mason Johnson MD Work Phone: [facility] 05-03-2022 influenza nasal, unspecified formulation [facility] Provider [facility] 05-03-2022 influenza virus vaccine, unspecified formulation Renea PARTIDA [facility] 05-03-2022 Influenza, Seasonal, Quadrivalent, Adjuvanted Mason Johnson MD Work Phone: [facility] 04-07-2022 influenza, seasonal, injectable Mason Johnson MD Work Phone: [facility] 06-15-2021 Influenza, Seasonal, Quadrivalent, Adjuvanted Mason Johnson MD Work Phone: [facility] 09-06-2020 SARS-CoV-2 (COVID-19 ) mRNA-1273 vaccine Renea JAQUAN [facility] 08-09-2020 SARS-CoV-2 (COVID-19 ) mRNA-1273 vaccine Renea JAQUAN [facility] 05-19-2019 influenza, high dose seasonal, preservative-free Mason Johnson MD Work Phone: [facility] 06-24-2018 Influenza, injectabl e, Madin [place] Canine Kidney, preservative free, quadrivalent Mason Johnson MD Work Phone: [facility] 06-21-2015 influenza, seasonal, injectable, preservative free Mason Johnson MD Work Phone: [facility] 06-20-2009 novel [id number], preservative-free, injectable Mason Johnson MD Work Phone: [facility] Payers Date Payer Category Payer Medicare (Raise Care) 1.2. [id number] 2024 Unknown [id number] 2022 Unknown HOSPITAL/MEDICAL GENERIC MEDICAL GENERIC [id number] 2022-Present [phone] [place] [address] Indemnity [id number] 2020 Private Health Insurance [id number] 2013 Medicare [id number] 1959 Medicare [id number] 1959 Private Health Insurance CLI [id number] 1943 Unknown [id number] 2.16.840.1.904885.3.579. 2.727 1943 Unknown [id number] 2.16.840.1.735363.3.579. 2.727 1943 Unknown [id number] 2.16.840.1.627377.3.579. 2.727 1943 Unknown [id number] 2.16.840.1.689104.3.579. 2.593 1943 Unknown [id number] 2.16.840.1.507599.3.579. 2.593 1943 Unknown [id number] 2.16.840.1.313608.3.579. 2.593 1943 Unknown [id number] 2.16.840.1.111732.3.579. 2.593 1943 Unknown [id number] 2.16.840.1.108746.3.579. 2.593 1943 Unknown [id number] 2.16.840.1.407913.3.579. 2.593 1943 Unknown [id number] 2.16.840.1.381096.3.579. 2.1258 1943 Unknown [id number] 2.16.840.1.313790.3.579. 2.1258 1943 Unknown [id number] 2.16.840.1.595872.3.579. 2.1258 1943 Unknown [id number] 2.16.840.1.012658.3.579. 2.1258 1943 Unknown [id number] 2.16.840.1.211045.3.579. 2.1258 1943 Unknown [id number] 2.16840.1.792637.3.579. 2.1258 1943 Unknown [id number] 2.16.840.1.103533.3.579. 2.1258 1943 Unknown [id number] 2.840.1.233158.3.579. 2.1258 1943 Unknown [id number] 2.16840.1.814254.3.579. 2.1258 1943 Unknown [id number] 2.16840.1.429127.3.579. 2.1258 1943 Unknown [id number] 2.16.840.1.425058.3.579. 2.1258 1943 Unknown [id number] 2.16.840.1.474736.3.579. 2.1258 1943 Unknown [id number] 2.16.840.1.718914.3.579. 2.1258 1943 Unknown [id number] 2.16.840.1.672427.3.579. 2.1258 1943 Unknown [id number] 2.16.840.1.161291.3.579. 2.1258 1943 Unknown [id number] 2.16.840.1.590190.3.579. 2.1259 1943 Unknown [id number] 2.16.840.1.195938.3.579. 2.1259 1943 Unknown [id number] 2.16.840.1.875258.3.579. 2.1259 Social History Date Type Detail Facility Start: 06-13-2022 End: 11-20-2023 Tobacco smoking status Never smoked tobacco (finding) [facility] Tobacco smoking status Never [facility] Start: 02-06-2023 End: 06-10-2023 Sex Assigned At Male [facility] Start: 04-30-2013 End: 11-20-2023 Tobacco use and exposure Smokeless tobacco non-user [facility] Start: 08-14-2022 End: 01-19-2025 Alcohol intake Current drinker of alcohol (finding) [facility] Start: 08-14-2022 Alcohol Comment daily 3 beers [facility] Start: 1945 Sex Assigned At Not on file [facility] Start: 02-06-2023 End: 06-10-2023 History of Social function [facility] Start: 1945 Sex Assigned At Male F [facility] Within the last year , have you [...] caffeine intak e: 1-2 cups per day [facility] NEGATED: Highlighted rowStart: PROSPERF History of tobacco use Passive smoker [facility] Functional Status Date Assessment Result Facility 12-28-2024 Patient Health Quest ionnaire 2 item (PHQ-2) [Reported] [facility] 12-09-2024 Patient Health Quest ionnaire 2 item (PHQ-2) [Reported] [facility] 06-13-2022 Functional Status N/A [facility] Villagran mauri De León 04-29-2014 Are you deaf, or do you have serious difficulty hearing No 04/29/2014 11:20 AM Jasmyn Han No [facility] 04-29-2014 Are you blind, or do you have serious difficulty seeing, even when wearing glasses No 04/29/2014 11:20 AM Jasmyn Han [facility] 04-29-2014 Do you have serious difficulty walking or climbing stairs No 04/29/2014 11:20 AM Jasmyn Han [facility] 04-29-2014 Do you have difficul ty dressing or bathing No 04/29/2014 11:20 AM Jasmyn Han [facility] 04-29-2014 Because of a physica l, mental, or emotional condition, do you have difficulty doing errands alone such as visiting a physician's office or shopping No 04/29/2014 11:20 AM Jasmyn Han [facility] Mental Status Date Assessment Result Facility 04-29-2014 Because of a physica l, mental, or emotional condition, do you have serious difficulty concentrating, remembering, or making decisions No 04/29/2014 11:20 AM Jasmyn Han [facility] Clinical Notes 04-28-2015 to 01-19-2025 Serene Morales MD - 01/19/2025 8:00 AM Anthony Johnson MD - 01/06/2025 9:00 AM Anthony Johnson MD - 12/28/2024 9:30 AM Anthony Johnson MD - 12/09/2024 10:15 AM EDTPatient Instructions Note Date & Type Note Facility 01-19-2025 History of Present illness Narrative Subjective Patient ID: Manish Root is a 79 y.o. 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, without long-term current use of insulin (HCC) 01/15/2023 GERD (gastroesophageal reflux disease) 01/15/2023 History of NE (myocardial infarction) 01/15/2023 HTN (hypertension) 01/15/2023 OJEDA (nonalcoholic steatohepatitis) 01/15/2023 Stage 2 chronic kidney disease 2022 Facial lesion 01/21/2023 CAD (coronary artery disease) 06/10/2023 Chemotherapy-induced neutropenia 10/19/2022 Diastasis recti 01/15/2023 Encounter for Medicare annual wellness exam 06/10/2023 Neck muscle spasm 11/20/2023 Throat cancer (HCC) 12/04/2023 Hyperlipidemia 12/16/2023 Separation of right acromioclavicular joint 10/16/2024 Spondylosis of cervical region without myelopathy or radiculopathy 10/26/2024 Primary osteoarthritis of left hip 10/26/2024 Resolved Ambulatory Problems Diagnosis Date Noted Overweight 12/15/2022 Acute pain of right shoulder 12/15/2022 Basal cell carcinoma (BCC) of face 12/15/2022 Chemotherapy-induced neutropenia 10/19/2022 Diastasis recti 01/15/2023 Disorder of prostate 01/15/2023 Glucose intolerance 01/15/2023 History of colonic polyps 01/15/2023 History of malignant neoplasm of colon 01/15/2023 Hypercholesterolemia 01/15/2023 Raynaud's syndrome 01/15/2023 Vitamin D deficiency 01/15/2023 Type 2 diabetes mellitus without complications (HCC) 06/10/2023 Past Medical History: Diagnosis Date Diabetes (HCC) HCVD (hypertensive cardiovascular disease) Hx of myocardial infarction Hypertension Inguinal hernia, right Raynaud's disease Sinusitis Thyromegaly Type 2 diabetes mellitus (HCC) Past Surgical History: Procedure Laterality Date CARDIAC CATHETERIZATION 2001 with stent placement CATARACT EXTRACTION COLECTOMY 02/2000 sigmoid colectomy with colostomy COLONOSCOPY LARYNGOSCOPY 07/31/2022 with biopsy, Lana Allergies Allergen Reactions Statins GI intolerance Current Outpatient Medications on File Prior to Visit Medication Sig Dispense Refill aspirin 81 MG EC tablet Take 81 mg by mouth 1 (one) time each day at the same time celecoxib (CeleBREX) 200 MG capsule Take 1 capsule (200 mg) by mouth in the morning and 1 capsule (200 mg) before bedtime. 60 capsule 6 cholecalciferol (Vitamin D-3) 25 MCG (1000 UT) tablet Take 25 mcg by mouth 1 (one) time each day at the same time fenofibrate micronized (Lofibra) 134 MG capsule Take 1 capsule (134 mg) by mouth Daily 100 capsule 3 latanoprost (Xalatan) 0.005 % ophthalmic solution Administer 1 drop into both eyes Daily metFORMIN (Glucophage) 500 MG tablet Take 1 tablet (500 mg) by mouth Daily 100 tablet 3 metoprolol succinate XL (Toprol-XL) 25 MG 24 hr tablet Take 1 tablet (25 mg) by mouth Daily Do not crush or chew. 90 tablet 3 No current facility-administered medications on file prior to visit. Objective Last Recorded Vitals Vitals: 01/19/25 0810 BP: 162/53 Pulse: 57 ENT Physical Exam Constitutional Appearance: patient appears well-developed and well-nourished, Oral Cavity/Oropharynx OC/OP comments: OC/OP/IDL - no mass or ulcer Neck Neck comments: Supple, FROM, No LAD Assessment/Plan Diagnoses and all orders for this visit: Cancer of base of tongue (HCC) ANAHY today. Quarterly appts till 07/2026 documented in this encounter [facility] 01-06-2025 History of Present illness Narrative Images from the original note were not included. HPI Results Additional comments: Lspine xray Last edited by Niki Alvarez LPN on 01/06/2025 9:01 AM. Subjective Patient ID: Manish Root is a 79 y.o. male who presents for Hip Pain and Results (Lspine xray). Left hip pain continuing worse when changing positions from sitting to standing Denies pain radiating down leg, denies numbness or tinging in leg Pt also states he has increased bruising on bilateral arms and hands Hip Pain Current Outpatient Medications on File Prior to Visit Medication Sig Dispense Refill aspirin 81 MG EC tablet Take 81 mg by mouth 1 (one) time each day at the same time celecoxib (CeleBREX) 200 MG capsule Take 1 capsule (200 mg) by mouth in the morning and 1 capsule (200 mg) before bedtime. 60 capsule 6 cholecalciferol (Vitamin D-3) 25 MCG (1000 UT) tablet Take 25 mcg by mouth 1 (one) time each day at the same time fenofibrate micronized (Lofibra) 134 MG capsule Take 1 capsule (134 mg) by mouth Daily 100 capsule 3 latanoprost (Xalatan) 0.005 % ophthalmic solution Administer 1 drop into both eyes Daily metFORMIN (Glucophage) 500 MG tablet Take 1 tablet (500 mg) by mouth Daily 100 tablet 3 metoprolol succinate XL (Toprol-XL) 25 MG 24 hr tablet Take 1 tablet (25 mg) by mouth Daily Do not crush or chew. 90 tablet 3 No current facility-administered medications on file prior [...] History: Diagnosis Date CAD (coronary artery disease) Chemotherapy-induced neutropenia 10/19/2022 Colon cancer (HCC) Diabetes (HCC) Diastasis recti 01/15/2023 Disorder of prostate 01/15/2023 GERD (gastroesophageal reflux disease) Glucose intolerance 01/15/2023 HCVD (hypertensive cardiovascular disease) History of colonic polyps 01/15/2023 History of malignant neoplasm of colon 01/15/2023 Hx of myocardial infarction Hyperlipidemia Hypertension Inguinal hernia, right Overweight 12/15/2022 Raynaud's disease Sinusitis Throat cancer (HCC) Thyromegaly Type 2 diabetes mellitus (HCC) Vitamin D deficiency Past Surgical History: Procedure Laterality Date CARDIAC CATHETERIZATION 2001 with stent placement CATARACT EXTRACTION COLECTOMY 02/2000 sigmoid colectomy with colostomy COLONOSCOPY LARYNGOSCOPY 07/31/2022 with biopsy, Timwis Visit Vitals Ht 5' 7 BMI 31.48 kg/m Smoking Status Never BSA 2.08 m Review of Systems Objective Physical Exam Constitutional: General: He is not in acute distress. Appearance: Normal appearance. Cardiovascular: Rate and Rhythm: Normal rate and regular rhythm. Heart sounds: No murmur heard. Pulmonary: Effort: Pulmonary effort is normal. No respiratory distress. Breath sounds: No wheezing, rhonchi or rales. Abdominal: General: Abdomen is flat. Bowel sounds are normal. Palpations: Abdomen is soft. Musculoskeletal: Right lower leg: No edema. Left lower leg: No edema. Neurological: Mental Status: He is alert. Psychiatric: Mood and Affect: Mood normal. Thought Content: Thought content normal. Assessment/Plan Diagnoses and all orders for this visit: Left lumbar radiculitis - Ambulatory referral to Physical Therapy; Future - Left L1 dermatome Left hip pain - Ambulatory referral to Physical Therapy; Future No follow-ups on file. documented in this encounter [facility] 12-28-2024 History of Present illness Narrative Images from the original note were not included. HPI Results Additional comments: Knee xray, lab results Last edited by Niki Alvarez LPN on 12/28/2024 9:34 AM. Subjective Patient ID: Manish Root is a 79 y.o. male who presents for Results (Knee xray, lab results) and Joint Pain. Follow up left hip and left knee pain Pt states the knee pain is feeling slightly better Denies any numbness or tingling Labs and xrays completed Worse with changing positions and weight bearing Over the past 2 weeks, how often have you been bothered by any of the following problems? Little interest or pleasure in doing things: Not at all Feeling down, depressed, or hopeless: Not at all Patient Health Questionnaire-2 Score: 0 Current Outpatient Medications on File Prior to Visit Medication Sig Dispense Refill aspirin 81 MG EC tablet Take 81 mg by mouth 1 (one) time each day at the same time celecoxib (CeleBREX) 200 MG capsule Take 1 capsule (200 mg) by mouth in the morning and 1 capsule (200 mg) before bedtime. 60 capsule 6 cholecalciferol (Vitamin D-3) 25 MCG (1000 UT) tablet Take 25 mcg by mouth 1 (one) time each day at the same time fenofibrate micronized (Lofibra) 134 MG capsule Take 1 capsule (134 mg) by mouth Daily 100 capsule 3 latanoprost (Xalatan) 0.005 % ophthalmic solution Administer 1 drop into both eyes Daily metFORMIN (Glucophage) 500 MG tablet Take 1 tablet (500 mg) by mouth Daily 100 tablet 3 metoprolol succinate XL (Toprol-XL) 25 MG 24 hr tablet Take 1 tablet (25 mg) by mouth Daily Do not crush or chew. 90 tablet 3 [DISCONTINUED] methylPREDNISolone (Medrol Dospak) 4 MG tablets Follow schedule on package instructions 21 tablet 0 No current facility-administered medications on file prior [...] History: Diagnosis Date CAD (coronary artery disease) Chemotherapy-induced neutropenia 10/19/2022 Colon cancer (HCC) Diabetes (HCC) Diastasis recti 01/15/2023 Disorder of prostate 01/15/2023 GERD (gastroesophageal reflux disease) Glucose intolerance 01/15/2023 HCVD (hypertensive cardiovascular disease) History of colonic polyps 01/15/2023 History of malignant neoplasm of colon 01/15/2023 Hx of myocardial infarction Hyperlipidemia Hypertension Inguinal hernia, right Overweight 12/15/2022 Raynaud's disease Sinusitis Throat cancer (HCC) Thyromegaly Type 2 diabetes mellitus (HCC) Vitamin D deficiency Past Surgical History: Procedure Laterality Date CARDIAC CATHETERIZATION 2001 with stent placement CATARACT EXTRACTION COLECTOMY 02/2000 sigmoid colectomy with colostomy COLONOSCOPY LARYNGOSCOPY 07/31/2022 with biopsy, Timmis Visit Vitals BP 136/70 Pulse 58 Ht 5' 7 Wt 201 lb SpO2 95% BMI 31.48 kg/m Smoking Status Never BSA 2.08 m Review of Systems Objective Physical Exam Musculoskeletal: Left hip: Decreased range of motion. Left knee: Swelling and effusion present. Tenderness present over the LCL. Office Visit on 12/09/2024 Component Date Value Ref Range Status Hemoglobin A1C 12/09/2024 7.1 Final RHEUMATOID FACTOR (IGG) 12/09/2024 <5 <=6 U Final RHEUMATOID FACTOR (IGA) 12/09/2024 <5 <=6 U Final RHEUMATOID FACTOR (IGM) 12/09/2024 <5 <=6 U Final CYCLIC CITRULLINATED PEPTIDE (CCP)* 12/09/2024 <16 <20 Units Final Comment: Negative: <20 Weak Positive: 20 - 39 Moderate Positive: 40 - 59 Strong Positive: >59 SJOGREN'S ANTIBODY (SS-A) 12/09/2024 <1.0 AI Final Comment: Reference Range: < 1.0 NEG AI SJOGREN'S ANTIBODY (SS-B) 12/09/2024 <1.0 AI Final Comment: Reference Range: < 1.0 NEG AI URIC ACID 12/09/2024 5.6 4.0 - 8.0 mg/dL Final Comment: Therapeutic target for gout patients: <6.0 mg/dL C-REACTIVE PROTEIN 12/09/2024 9.8 (H) <8.0 mg/L Final SED RATE BY MODIFIED WESTERGREN 12/09/2024 9 < OR = 20 mm/h Final RAFAEL SCREEN, IFA 12/09/2024 POSITIVE (A) NEGATIVE Final Comment: RAFAEL IFA is a first line screen for detecting the presence of up to approximately 150 autoantibodies in various autoimmune diseases. A positive RAFAEL IFA result is suggestive of autoimmune disease and reflexes to titer and pattern. Further laboratory testing may be considered if clinically indicated. For additional information, please refer to http://education.[employer] .[employer]/faq/OWN038 (This link is being provided for informational/ educational purposes only.) RAFAEL TITER 12/09/2024 1:40 (H) titer Final Comment: A low level RAFAEL titer may be present in pre-clinical autoimmune diseases and normal individuals. Reference Range <1:40 Negative 1:40-1:80 Low Antibody Level >1:80 Elevated Antibody Level RAFAEL PATTERN 12/09/2024 Cytoplasmic, Polar/Golgi-like (A) Final Comment: Discontinuous speckled or granular perinuclear ribbon- like staining with polar distribution in the cytoplasm (e.g., anti-giantin, [id number]). Pattern is rare in Sjogren's syndrome, systemic lupus erythematosus (SLE), rheumatoid arthritis, mixed connective disease, granulomatosis with polyangiitis (GPA), idiopathic cerebellar ataxia, paraneoplastic cerebellar degeneration, and viral infections. AC-22: Polar/Golgi-like International Consensus on RAFAEL Patterns (https://doi.org/10.1515/cclm-201 8-0052) Clinisync Result Encounter on 12/02/2024 Component Date Value Ref Range Status [facility] T3 SERPL-MCNC 12/02/2024 73 (L) 79 - 165 ng/dL Final [facility] T4 SERPL-MCNC 12/02/2024 5.6 5.5 - 10.2 ug/dL Final [facility] TSH SERPL-ACNC 12/02/2024 2.850 0.270 - 4.200 mIU/L Final Assessment/Plan Diagnoses and all orders for this visit: Left hip pain - XR lumbar spine 2 or 3 views; Future Effusion of left knee Acute pain of left knee - Probable Pseudogout. Labs discussed. Follow up in about 1 week (around 01/04/2025) for Test/Lab Review. documented in this encounter [facility] 12-09-2024 History of Present illness Narrative HPI Follow-up Additional comments: Knee and hip pain--left hip pt states he is not sure its OA as discussed would like to discuss Last edited by Niki Alvarez LPN on 12/09/2024 10:42 AM. Subjective Patient ID: Manish Root is a 79 y.o. male who presents for Diabetes and Follow-up (Knee and hip pain--left hip pt states he is not sure its OA as discussed would like to discuss ). Diabetes Mellitus Patient presents for follow up [...] women), diabetes mellitus, hypertension, and male gender. Pt states left hip and knee are still bothering him and would like to discuss what he could do to treat Diabetes Hypertension Current Outpatient Medications on File Prior to Visit Medication Sig Dispense Refill aspirin 81 MG EC tablet Take 81 mg by mouth 1 (one) time each day at the same time celecoxib (CeleBREX) 200 MG capsule Take 1 capsule (200 mg) by mouth in the morning and 1 capsule (200 mg) before bedtime. 60 capsule 6 cholecalciferol (Vitamin D-3) 25 MCG (1000 UT) tablet Take 25 mcg by mouth 1 (one) time each day at the same time fenofibrate micronized (Lofibra) 134 MG capsule Take 1 capsule (134 mg) by mouth Daily 100 capsule 3 latanoprost (Xalatan) 0.005 % ophthalmic solution Administer 1 drop into both eyes Daily metFORMIN (Glucophage) 500 MG tablet Take 1 tablet (500 mg) by mouth Daily 100 tablet 3 metoprolol succinate XL (Toprol-XL) 25 MG 24 hr tablet TAKE 1 TABLET BY MOUTH DAILY at the same time each day 90 tablet 1 [DISCONTINUED] fenofibrate micronized (Lofibra) 134 MG capsule Take 1 capsule (134 mg) by mouth Daily 90 capsule 1 [DISCONTINUED] metFORMIN (Glucophage) 500 MG tablet Take 1 [...] (CMS/HCC) Thyromegaly (CMS/HCC) Type 2 diabetes mellitus Vitamin D deficiency Past Surgical History: Procedure Laterality Date CARDIAC CATHETERIZATION 2001 with stent placement CATARACT EXTRACTION COLECTOMY 02/2000 sigmoid colectomy with colostomy COLONOSCOPY LARYNGOSCOPY 07/31/2022 with biopsy, Timmis Visit Vitals BP 134/82 Pulse 56 Ht 5' 7 Wt 200 lb SpO2 95% BMI 31.32 kg/m Smoking Status Never BSA 2.07 m Review of Systems Objective Physical Exam Musculoskeletal: Left hip: Decreased range of motion. Left knee: Swelling and effusion present. Tenderness present over the LCL. Office Visit on 12/09/2024 Component Date Value Ref Range Status Hemoglobin A1C 12/09/2024 7.1 Final Clinisync Result Encounter on 12/02/2024 Component Date Value Ref Range Status [facility] T3 SERPL-MCNC 12/02/2024 73 (L) 79 - 165 ng/dL Final [facility] T4 SERPL-MCNC 12/02/2024 5.6 5.5 - 10.2 ug/dL Final [facility] TSH SERPL-ACNC 12/02/2024 2.850 0.270 - 4.200 mIU/L Final Assessment/Plan Diagnoses and all orders for this visit: Inflammatory arthritis - POCT Glycated hemoglobin, total - RHEUMATOID ARTHRITIS DIAGNOSTIC PANEL 3; Future - Uric acid; Future - C-reactive protein; Future - Sedimentation rate, automated; Future - RAFAEL; Future - methylPREDNISolone (Medrol Dospak) 4 MG tablets; Follow schedule on package instructions - Suspect CPPD (Pseudogout) based on hip xary and presentation. L Knee also affected at present. Effusion of left knee - XR knee 3 views left; Future Acute pain of left knee - XR knee 3 views left; Future 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, without long-term current use of insulin ([facility]) - FSBS log shows good control, most recent A1C is at or near goal. Continue current treatment plan as previously outlined without changes. Follow up in about 2 weeks (around 12/23/2024) for As Previously Scheduled, Test/Lab Review. documented in this encounter [facility] 11-04-2024 Note HNO ID: [id number] Author: Yordan FELIZ MD Service: ? Author Type: Physician Type: Progress Notes Filed: 11/06/2024 09:23 Note Text: Radiation Oncology - Follow Up [...] any significant neck pain or dysphagia. LABORATORY: Latest Reference Range AND Units 10/23/23 10:52 10/28/24 07:53 T4 5.5 - 10.2 ug/dL 0.6 (L) Free T4 0.9 - 1.7 ng/dL 1.2 TSH 0.270 - 4.200 mIU/L 2.750 3.310 T3 79 - 165 ng/dL 93 (L): Data is abnormally low Hemoglobin (g/dL) Date Value 10/28/2024 14.0 Hematocrit (%) Date Value 10/28/2024 41.1 WBC (k/uL) Date Value 10/28/2024 3.91 Platelet Count (k/uL) Date Value 10/28/2024 210 Latest Reference Range AND Units 10/16/23 10:46 [...] Lymph 1.00 - 4.00 k/uL 0.48 (L) Phelps% % 10.4 Abs Phelps <0.87 k/uL 0.32 Eosin% % 1.6 Abs Eosin <0.46 k/uL 0.05 Baso% % 0.6 Abs Baso <0.11 k/uL <0.03 Immature Gran % % 0.6 IMMATURE GRANS (ABS) <0.10 k/uL <0.03 NRBC /100 WBC 0.0 Absolute nRBC <0.01 k/uL <0.01 (L): Data is abnormally low RADIOLOGY: CT chest 10/28/2024: IMPRESSION: 1. No interval change since 04/23/24. 2. Mild patchy opacities in the left lung apex and subcentimeter nodular opacities in the right lung, stable. CT neck 10/28/2024: IMPRESSION: Primary: NI-RADS 1. Stable post-treatment changes in the neck without evidence of recurrent disease in the primary site. Neck: NI-RADS 1. No pathologic cervical lymphadenopathy by size criteria. CT neck 04/23/2024:IMPRESSION: 1. STABLE POSTTREATMENT CHANGES [...] osseous lesions ALLERGIES No Known Allergies MEDICATIONS: celecoxib (CELEBREX) 200 mg capsule Take 200 mg by mouth once daily. iv contrast [...] Once exam is complete flush line and de-a (more content not included)... [facility] 11-04-2024 History of Present illness Narrative Radiation Oncology - Follow Up [...] any significant neck pain or dysphagia. LABORATORY: Latest Reference Range & Units 10/23/23 10:52 10/28/24 07:53 T4 5.5 - 10.2 ug/dL 0.6 (L) Free T4 0.9 - 1.7 ng/dL 1.2 TSH 0.270 - 4.200 mIU/L 2.750 3.310 T3 79 - 165 ng/dL 93 (L): Data is abnormally low Hemoglobin (g/dL) Date Value 10/28/2024 14.0 Hematocrit (%) Date Value 10/28/2024 41.1 WBC (k/uL) Date Value 10/28/2024 3.91 Platelet Count (k/uL) Date Value 10/28/2024 210 Latest Reference Range & Units 10/16/23 10:46 [...] Lymph 1.00 - 4.00 k/uL 0.48 (L) Phelps% % 10.4 Abs Phelps <0.87 k/uL 0.32 Eosin% % 1.6 Abs Eosin <0.46 k/uL 0.05 Baso% % 0.6 Abs Baso <0.11 k/uL <0.03 Immature Gran % % 0.6 IMMATURE GRANS (ABS) <0.10 k/uL <0.03 NRBC /100 WBC 0.0 Absolute nRBC <0.01 k/uL <0.01 (L): Data is abnormally low RADIOLOGY: CT chest 10/28/2024: IMPRESSION: 1. No interval change since 04/23/24. 2. Mild patchy opacities in the left lung apex and subcentimeter nodular opacities in the right lung, stable. CT neck 10/28/2024: IMPRESSION: Primary: NI-RADS 1. Stable post-treatment changes in the neck without evidence of recurrent disease in the primary site. Neck: NI-RADS 1. No pathologic cervical lymphadenopathy by size criteria. CT neck 04/23/2024:IMPRESSION: 1. STABLE POSTTREATMENT CHANGES [...] osseous lesions ALLERGIES No Known Allergies MEDICATIONS: celecoxib (CELEBREX) 200 mg capsule Take 200 mg by mouth once daily. iv contrast [...] in the CT contrast administration guidelines link. cholecalciferol, Vitamin D3, (VITAMIN D3) 1,250 mcg [...] review of systems is negative. PHYSICAL EXAM: 11/04/24 10:50 Weight 91.7 kg (202 lb 2.6 oz) Height 166.9 cm (5' 5.71 ) BSA 2.06 BMI 32.92 Temp 36.6 C (97.9 F) Pulse 55 ! Resp 16 BP 155/69 SpO2 97 % !: Data is abnormal KPS: 100 General Appearance: Well appearing, alert, [...] Lung nodule CT demonstrating stability. Continue surveillance. Repeat imaging scheduled for 6 months. 3. Mixed subclinical hypothyroidism, continue T4 TSH surveillance. Signed by: Yordan Feliz MD cc: Dr. Shaikh Vidal Estrada [address] [place] [address] documented in this encounter [facility] 11-04-2024 History of Present illness Narrative Images from the original note were not included. NAME: Manish Root [facility] NO.: [id number] DATE OF SERVICE: November 04, 2024 ([facility]) Some elements in this clinic note that are critical to medical decision making have been carefully reviewed and included from a prior clinic note dated: May 06, 2024 (Jacquelyn) Referring Provider: Dr. Татьяна Feliz Additional Clinicians involved in Manish Root's care: Serene Goldsteniambika DIAGNOSIS: Base of Tongue squamous cell ca. ASSESSMENT: 79 year old man with base of tongue [...] review HPI: CASE HISTORY: Reverse Chronological Order 10/28/2024 - CT Neck & Chest: Neck: Stable post-treatment changes in the neck without evidence of recurrent disease in the primary site. NI-RADS 1. No pathologic cervical lymphadenopathy by size criteria. Chest: No interval change since 04/23/24. Mild patchy opacities in the left lung apex and subcentimeter nodular opacities in the right lung, stable. 04/23/2024 - CT Neck & Chest: Neck: [...] Ca Stage 3 - 2/5 LN + [place] regimen on protocol Updated Visit, November 04, 2024: Manish is doing well but his Jahaira is still dealing with an infection of left shoulder. He's now doing all the cooking. He is having left hip pain c/w arthritis. Reviewed scans and they are negative for disease. [place] to visit for the [place] as long as his is better. He's originally from [place]. Updated Visit, May 06, 2024: Manish returns [...] PERFORMANCE STATUS: 0 PHYSICAL EXAMINATION: Vitals: BP 155/69 Pulse 55 Temp (Src) 97.9 (Temporal) Resp 16 Ht 5' 5.709 (1.67m) Wt 202 lb 2.6 oz (91.7kg) SpO2 97% BMI 32.92 kg/(m^2). Body surface area is 2.06 meters squared. Exam limited to gross visualization [...] petechiae. ALLERGIES: ALLERGIES No Known Allergies MEDICATIONS: celecoxib (CELEBREX) 200 mg capsule Take 200 mg by mouth once daily. cholecalciferol, Vitamin D3, (VITAMIN D3) 1,250 mcg [...] be provided with radiology test) Inject 1 each intravenously one time only for 1 dose. [...] link. LABORATORY VALUES: WBC (k/uL) Date Value 10/28/2024 3.91 RBC (m/uL) Date Value 10/28/2024 4.55 Hemoglobin (g/dL) Date Value 10/28/2024 14.0 Hematocrit (%) Date Value 10/28/2024 41.1 MCV (fL) Date Value 10/28/2024 90.3 MCH (pg) Date Value 10/28/2024 30.8 MCHC (g/dL) Date Value 10/28/2024 34.1 RDW-CV (%) Date Value 10/28/2024 13.6 Platelet Count (k/uL) Date Value 10/28/2024 210 MPV (fL) Date Value 10/28/2024 9.7 Glucose (mg/dL) Date Value 10/28/2024 235 (H) BUN (mg/dL) Date Value 10/28/2024 13 Creatinine (mg/dL) Date Value 10/28/2024 1.04 Sodium (mmol/L) Date Value 10/28/2024 138 Potassium (mmol/L) Date Value 10/28/2024 4.3 Chloride (mmol/L) Date Value 10/28/2024 100 CO2 (mmol/L) Date Value 10/28/2024 27 Protein, Total (g/dL) Date Value 10/28/2024 7.2 Albumin (g/dL) Date Value 10/28/2024 4.6 Calcium, Total (mg/dL) Date Value 10/28/2024 9.8 Alkaline Phosphatase (U/L) Date Value 10/28/2024 61 Bilirubin, Total (mg/dL) Date Value 10/28/2024 0.5 AST (U/L) Date Value 10/28/2024 23 ALT (U/L) Date Value 10/28/2024 27 Cholesterol, Total (mg/dL) Date Value 02/06/2023 168 Triglyceride (mg/dL) Date Value 02/06/2023 89 DIAGNOSIS: (C01) Cancer of the base of tongue (HCC) (primary encounter diagnosis) Plan: COMPLETE BLOOD COUNT AND DIFFERENTIAL, COMPREHENSIVE METABOLIC PANEL, CT NECK SOFT TISSUE W IVCON, iv contrast (will be provided with radiology test), CT CHEST W IVCON, iv contrast (will be provided with radiology test) (R91.8) Lung nodules Plan: COMPLETE BLOOD COUNT AND DIFFERENTIAL, COMPREHENSIVE METABOLIC PANEL, CT NECK SOFT TISSUE W IVCON, iv contrast (will be provided with radiology test), CT CHEST W IVCON, iv contrast (will be provided with radiology test) (N18.30) Stage 3 chronic kidney disease, unspecified whether stage 3a or 3b CKD (HCC) Plan: COMPLETE BLOOD COUNT AND DIFFERENTIAL, COMPREHENSIVE METABOLIC PANEL, CT NECK SOFT TISSUE W IVCON, iv contrast (will be provided with radiology test), CT CHEST W IVCON, iv contrast (will be provided with radiology test) PAST MEDICAL HISTORY Diagnosis Date Cancer of the base of tongue (HCC) 08/21/2022 Chemotherapy-induced neutropenia 10/19/2022 Diabetes mellitus (HCC) HTN (hypertension) PAST [...] which included preparing to see the patient, [id number] patient care, completing clinical documentation, performing a medically appropriate examination, counseling and educating the patient/family/caregiver, ordering medications, tests, or procedures, independently interpreting results (not separately reported), communicating results to the patient/family/caregiver, and care coordination (not separately reported). John England MD, CPE Hematology and Oncology Services Provided at: [place], [place] CC: Dr. Yordan Morales documented in this encounter [facility] 11-04-2024 Note HNO ID: [id number] Author: JOHN ENGLAND MD Service: ? Author Type: Physician Type: Progress Notes Filed: 11/04/2024 19:00 Note Text: NAME: Dk Manishcarol MONTALVO NO.: [id number] DATE OF SERVICE: November 04, 2024 (Jacquelyn) Some elements in this clinic note that are critical to medical decision making have been carefully reviewed and included from a prior clinic note dated: May 06, 2024 (Jacquelyn) Referring Provider: Dr. Татьяна Feliz Additional Clinicians involved in Manish Root's care: Serene Morales DIAGNOSIS: Base of Tongue squamous cell ca. ASSESSMENT: 79 year old man with base of tongue [...] review HPI: CASE HISTORY: Reverse Chronological Order 10/28/2024 - CT Neck AND Chest: Neck: Stable post-treatment changes in the neck without evidence of recurrent disease in the primary site. NI-RADS 1. No pathologic cervical lymphadenopathy by size criteria. Chest: No interval change since 04/23/24. Mild patchy opacities in the left lung apex and subcentimeter nodular opacities in the right lung, stable. 04/23/2024 - CT Neck AND Chest: Neck: [...] Ca Stage 3 - 2/5 LN + [place] regimen on protocol Updated Visit, November 04, 2024: Manish is doing well but his Jahaira is still dealing with an infection of left shoulder. He's now doing all the cooking. He is having left hip pain c/w arthritis. Reviewed scans and they are negative for disease. [place] to go out [place] to visit for the [place] as long as his is better. He's originally from [place]. Updated Visit, May 06, 2024: Manish returns with his Jahaira (she has a pinched nerve that has locked up her shoulder) His scans are negative. He's doing very well. Updated Visit, October 23, 2023: Manish returns today with Jahaira. We discussed he recent CT scans - both appear stable. (more content not included)... [facility] 11-04-2024 Instructions John England MD - 11/04/2024 11:[address] Neck and Chest in 6 months Labs same day RTC 1 week after to review documented in this encounter [facility] 10-28-2024 Note HNO ID: [id number] Author: RAFAEL ZURITA RT(R) Service: ? Author Type: Technologist Type: Progress Notes Filed: 10/28/2024 09:41 Note Text: Radiology Service Progress Note PATIENT NAME: Manish Root DATE OF SERVICE: October 28, 2024 TIME: 9:41 AM PATIENT IDENTITY VERIFICATION COMPLETED USING TWO (2) IDENTIFIERS: Name and Date of confirmed by patient verbally. FALL SCREENING: Has the patient had 2 falls in the last year or 1 fall with injury or currently using an Ambulatory Assistive Device (Walker, Cane, Wheelchair, Crutches, etc.)? No PATIENT GENDER DATA: Assigned male at PATIENT RELEVANT IMPLANT DATA REVIEWED: Not Applicable PATIENT PRESENTS WITH AN IMPLANTABLE OR ATTACHED A AND P MECHANIC: No RADIOLOGY DEPARTMENT: CT; Exam(s) Completed: Chest and Neck PERIPHERAL IV DATA: Site assessment: Clean,Dry and Intact, Site disposition Discontinued SIGNED BY: RT Perlita(R) October 28, 2024 9:41 AM [facility] 10-28-2024 Note HNO ID: [id number] Author: GISELA VILLAVICENCIO RN Service: ? Author Type: Registered Nurse Type: Progress Notes Filed: 10/28/2024 10:50 Note Text: Radiology Service Progress Note DATE OF SERVICE: October 28, 2024 TIME: 10:49 AM PATIENT WEIGHT: 198LBS PATIENT IDENTITY VERIFICATION COMPLETED USING TWO (2) STANDARD IDENTIFIERS: Name and Date of confirmed by patient verbally. FALL SCREENING: Has the patient had 2 falls in the last year or 1 fall with injury or currently using an Ambulatory Assistive Device (Walker, Cane, Wheelchair, Crutches, etc.)? No PATIENT GENDER DATA: Assigned male at ALLERGIES: Reviewed and unchanged CONTRAST ALLERGY: No EXAM: CT -CONTRAST INDUCED NEPHROPATHY RISK FACTORS: Patient age > 60 years, Diabetic: Yes. Current medication(s): Metformin. Patient currently has insulin pump?: No., and Known Chronic Kidney Disease (CKD) CREATININE: Creatinine Date Value Ref Range Status 10/28/2024 1.04 0.73 - 1.22 mg/dL Final 04/23/2024 1.32 (H) 0.73 - 1.22 mg/dL Final 10/16/2023 1.34 (H) 0.73 - 1.22 mg/dL Final Estimated Glomerular Filtration Rate Date Value Ref Range Status 10/28/2024 73 >=60 mL/min/1.73m? Final Comment: Estimated Glomerular Filtration [...] RESULTS: POC done: Yes, See Lab Tab October 28, 2024 TREATMENT: No Hydration needed. IV SITE: Ambulatory: A peripheral IV was started in the Right antecubital site with a Angio cath: 20 gauge. IV SITE APPEARANCE: Clean,Dry and Intact SIGNATURE: Gisela Villavicencio RN PATIENT NAME: Manish Root DATE: October 28, 2024 TIME: 10:49 AM [facility] 10-26-2024 History of Present illness Narrative Images from the original note were not included. HPI Results Additional comments: xrays Follow-up Additional comments: Neck/hip pain and osteoarthritis Last edited by Niki Alvarez LPN on 10/26/2024 10:52 AM. Subjective Patient ID: Manish Root is a 78 y.o. male who presents for Results (xrays) and Follow-up (Neck/hip pain and osteoarthritis). Follow up for OA,left hip pain and neck pain pt statred celebrex as directed since last visit. Pt states the medication has made a big difference reports the pain he was having was almost resolved since starting celebrex Completed xrays as ordered Current Outpatient Medications on File Prior to Visit Medication Sig Dispense Refill aspirin 81 MG EC tablet Take 81 mg by mouth 1 (one) time each day at the same time celecoxib (CeleBREX) 200 MG capsule Take 1 capsule (200 mg) by mouth in the morning and 1 capsule (200 mg) before bedtime. 60 capsule 0 cholecalciferol (Vitamin D-3) 25 MCG (1000 UT) tablet Take 25 mcg by mouth 1 (one) time each day at the same time fenofibrate micronized (Lofibra) 134 MG capsule Take [...] Glucose intolerance 01/15/2023 HCVD (hypertensive cardiovascular disease) (CMS/[facility]) History of colonic polyps 01/15/2023 History of malignant neoplasm of colon 01/15/2023 Hx of myocardial infarction (CMS/HCC) Hyperlipidemia (CMS/HCC) Hypertension (CMS/HCC) Inguinal hernia, right Overweight 12/15/2022 Raynaud's disease Sinusitis Throat cancer (CMS/HCC) Thyromegaly (CMS/HCC) Type 2 diabetes mellitus Vitamin D deficiency Past Surgical History: Procedure Laterality Date CARDIAC CATHETERIZATION 2001 with stent placement CATARACT EXTRACTION COLECTOMY 02/2000 sigmoid colectomy with colostomy COLONOSCOPY LARYNGOSCOPY 07/31/2022 with biopsy, Timmis Visit Vitals BP 130/74 Pulse 52 Ht 5' 7 Wt 197 lb SpO2 96% BMI 30.85 kg/m Smoking Status Never BSA 2.06 m Review of Systems Objective Physical Exam Constitutional: General: He is not in acute distress. Appearance: He is normal weight. He is not ill-appearing. HENT: Head: Normocephalic. Cardiovascular: Rate and Rhythm: Normal rate and regular rhythm. Heart sounds: Normal heart sounds. No murmur heard. Pulmonary: Effort: Pulmonary effort is normal. Breath sounds: Normal breath sounds. Musculoskeletal: General: No swelling. Left hip: No deformity, lacerations, tenderness, bony tenderness or crepitus. Normal range of motion. Normal strength. Right lower leg: No edema. Left lower leg: No edema. Neurological: Mental Status: He is alert. Gait: Gait is intact. Psychiatric: Mood and Affect: Mood normal. Thought Content: Thought content normal. Judgment: Judgment normal. Assessment/Plan Diagnoses and all orders for this visit: Primary osteoarthritis of left hip - Patient was previously seen for this problem. Interventions discussed at that prior visit have improved this problem significantly. Please seen that office visit for details. (Celebrex was started) Neck pain on left side Left hip pain Spondylosis of cervical region without myelopathy or radiculopathy Follow up in about 3 months (around 01/25/2025) for Routine F/U, DM- A1C. documented in this encounter [facility] 10-20-2024 History of Present illness Narrative Subjective Patient ID: Manish Root is a 78 y.o. male who presents for Cancer (3 month check ) Family History Adopted: Yes Problem Relation Name Age of Onset No Known Problems Mother No Known Problems Father Active Ambulatory Problems Diagnosis Date Noted Cancer of base of tongue (CMS/HCC) 12/15/2022 Metastatic cancer to cervical lymph nodes (CMS/HCC) 12/15/2022 Arteriosclerotic cardiovascular disease (CMS/HCC) 01/15/2023 Colon cancer (CMS/HCC) 11/19/2012 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, without long-term current use of insulin (CMS/HCC) 01/15/2023 GERD (gastroesophageal reflux disease) 01/15/2023 History of NE (myocardial infarction) (CMS/HCC) 01/15/2023 HTN (hypertension) (CMS/HCC) 01/15/2023 OJEDA (nonalcoholic steatohepatitis) 01/15/2023 Stage 2 chronic kidney disease 2022 Facial lesion 01/21/2023 CAD (coronary artery disease) (CMS/HCC) 06/10/2023 Chemotherapy-induced neutropenia (CMS/HCC) 10/19/2022 Diastasis recti 01/15/2023 Encounter for Medicare annual wellness exam 06/10/2023 Neck muscle spasm 11/20/2023 Throat cancer (CMS/HCC) 12/04/2023 Hyperlipidemia (CMS/HCC) 12/16/2023 Separation of right acromioclavicular joint 10/16/2024 Resolved Ambulatory Problems Diagnosis Date Noted Overweight 12/15/2022 Acute pain of right shoulder 12/15/2022 Basal cell carcinoma (BCC) of face 12/15/2022 Chemotherapy-induced neutropenia (CMS/HCC) 10/19/2022 Diastasis recti 01/15/2023 Disorder of prostate 01/15/2023 Glucose intolerance 01/15/2023 History of colonic polyps 01/15/2023 History of malignant neoplasm of colon 01/15/2023 Hypercholesterolemia (CMS/HCC) 01/15/2023 Raynaud's syndrome 01/15/2023 Vitamin D deficiency 01/15/2023 Type 2 diabetes mellitus without complications 06/10/2023 Past Medical History: Diagnosis Date Diabetes (CMS/HCC) HCVD (hypertensive cardiovascular disease) (CMS/HCC) Hx of myocardial infarction (CMS/HCC) Hypertension (CMS/HCC) Inguinal hernia, right Raynaud's disease Sinusitis Thyromegaly (CMS/HCC) Type 2 diabetes mellitus Past Surgical History: Procedure Laterality Date CARDIAC CATHETERIZATION 2001 with stent placement CATARACT EXTRACTION COLECTOMY 02/2000 sigmoid colectomy with colostomy COLONOSCOPY LARYNGOSCOPY 07/31/2022 with biopsyLana Allergies Allergen Reactions Statins GI intolerance Current Outpatient Medications on File Prior to Visit Medication Sig Dispense Refill aspirin 81 MG EC tablet Take 81 mg by mouth 1 (one) time each day at the same time celecoxib (CeleBREX) 200 MG capsule Take 1 capsule (200 mg) by mouth in the morning and 1 capsule (200 mg) before bedtime. 60 capsule 0 cholecalciferol (Vitamin D-3) 25 MCG (1000 UT) tablet Take 25 mcg by mouth 1 (one) time each day at the same time fenofibrate micronized (Lofibra) 134 MG capsule Take [...] to visit. Objective Last Recorded Vitals Vitals: 10/20/24 0801 BP: 155/87 Pulse: 54 ENT Physical Exam Constitutional Appearance: patient appears well-developed and well-nourished, Oral Cavity/Oropharynx OC/OP comments: OC/OP/IDL - no mass or ulcer Neck Neck comments: Supple, FROM, No LAD Assessment/Plan Diagnoses and all orders for this visit: Cancer of base of tongue (CMS/HCC) ANAHY today. Quarterly appts till 07/2026 documented in this encounter [facility] 10-12-2024 History of Present illness Narrative Images from the original note were not included. Subjective Patient ID: Manish Root is a 78 y.o. male who presents for Neck Pain, Hip Pain, Urinary Incontinence, and Bleeding/Bruising. Pt here to follow up for the muscle spasms he was having left side of neck--was unable to tolerate the Zanaflex and did not really help per pt Hip Pain Patient complains of left hip pain. Onset of the symptoms was a week ago. Inciting event: none. Aggravating symptoms include: nothing. Patient has had no prior hip problems. Pt notices he bruises easily recently Pt states he occ has urinary incontinence/dribbling when he needs to urinate x 6 months Neck Pain Hip Pain Urinary Incontinence Current Outpatient Medications on File Prior to [...] time each day 90 tablet 1 [DISCONTINUED] tiZANidine (Zanaflex) 4 MG tablet Take 1 tablet (4 mg) by mouth in the morning and 1 tablet (4 mg) before bedtime. 60 tablet 3 No current facility-administered medications on file prior [...] neutropenia (CMS/HCC) 10/19/2022 Colon cancer (CMS/HCC) Diabetes (CMS/[facility]) Diastasis recti 01/15/2023 Disorder of prostate 01/15/2023 GERD (gastroesophageal reflux disease) Glucose intolerance 01/15/2023 HCVD (hypertensive cardiovascular disease) ([facility]/HCC) History of colonic polyps 01/15/2023 History of malignant neoplasm of colon 01/15/2023 Hx of myocardial infarction (CMS/HCC) Hyperlipidemia (CMS/HCC) Hypertension (CMS/HCC) Inguinal hernia, right Overweight 12/15/2022 Raynaud's disease Sinusitis Throat cancer (CMS/HCC) Thyromegaly (CMS/HCC) Type 2 diabetes mellitus Vitamin D deficiency Past Surgical History: Procedure Laterality Date CARDIAC CATHETERIZATION 2001 with stent placement CATARACT EXTRACTION COLECTOMY 02/2000 sigmoid colectomy with colostomy COLONOSCOPY LARYNGOSCOPY 07/31/2022 with biopsy, Timwis Visit Vitals BP 134/70 Pulse 56 Ht 5' 7 Wt 197 lb SpO2 98% BMI 30.85 kg/m Smoking Status Never BSA 2.06 m Review of Systems Genitourinary: Positive for bladder incontinence. Musculoskeletal: Positive for neck pain. Objective Physical Exam Constitutional: General: He is not in acute distress. Appearance: He is normal weight. He is not ill-appearing. HENT: Head: Normocephalic. Cardiovascular: Rate and Rhythm: Normal rate and regular rhythm. Heart sounds: Normal heart sounds. No murmur heard. Pulmonary: Effort: Pulmonary effort is normal. Breath sounds: Normal breath sounds. Musculoskeletal: General: No swelling. Left hip: No deformity, lacerations, tenderness, bony tenderness or crepitus. Normal range of motion. Normal strength. Right lower leg: No edema. Left lower leg: No edema. Neurological: Mental Status: He is alert. Gait: Gait is intact. Psychiatric: Mood and Affect: Mood normal. Thought Content: Thought content normal. Judgment: Judgment normal. Assessment/Plan Diagnoses and all orders for this visit: Neck pain on left side - XR cervical spine 2 or 3 views; Future Left hip pain - XR hip left 2 or 3 views; Future Osteoarthritis, unspecified osteoarthritis type, unspecified site - celecoxib (CeleBREX) 200 MG capsule; Take 1 capsule (200 mg) by mouth in the morning and 1 capsule (200 mg) before bedtime. Stress incontinence of urine - Try kegal exercises. If that fails will refer to Urology. Follow up in about 2 weeks (around 10/26/2024) for F/U med changes, Test/Lab Review. documented in this encounter [facility] 09-17-2024 History of Present illness Narrative Lesions: Location: scalp, right forearm [...] limited to risks of scarring, darker or contract programmer pigmentary changes, recurrence, incomplete removal and infection. [...] 3. Seborrheic keratosis, inflamed Mid Parietal Scalp [place] and brown stuck on verrucous scaly papule [...] limited to risks of scarring, darker or contract programmer pigmentary changes, recurrence, incomplete removal and infection. [...] Visit: as scheduled documented in this encounter [facility] 08-31-2024 History of Present illness Narrative Images from the original note [...] Do you have a medical power of trade mark attorney?: No Objective : BP 136/74 Pulse [...] a living will and durable power of trade mark attorney for healthcare. 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 male who presents for Cancer (1 month follow up tongue CA) Family History Adopted: Yes Problem Relation Name Age of Onset No Known Problems Mother No Known Problems Father Active Ambulatory Problems Diagnosis Date Noted Cancer of base of tongue ([facility]) 12/15/2022 Metastatic cancer to cervical lymph nodes ([facility]) 12/15/2022 Arteriosclerotic cardiovascular disease ([facility]) 01/15/2023 Colon cancer ([facility]) 11/19/2012 DM II (diabetes mellitus, type II), controlled ([facility]) 01/15/2023 GERD (gastroesophageal reflux disease) 01/15/2023 History of NE (myocardial infarction) ([facility]) 01/15/2023 HTN (hypertension) ([facility]) 01/15/2023 OJEDA (nonalcoholic steatohepatitis) 01/15/2023 Stage 2 chronic kidney disease 2022 Facial lesion 01/21/2023 CAD (coronary artery disease) ([facility]) 06/10/2023 Chemotherapy-induced neutropenia ([facility]) 10/19/2022 Type 2 diabetes mellitus without complications ([facility]) 06/10/2023 Diastasis recti 01/15/2023 Encounter for Medicare annual wellness exam 06/10/2023 Neck muscle spasm 11/20/2023 Throat cancer (CMS/[facility]) 12/04/2023 Hyperlipidemia ([facility]) 12/16/2023 Resolved Ambulatory Problems Diagnosis Date Noted [...] Start quarterly appts documented in this encounter [facility] 07-15-2024 History of Present illness Narrative documented in this encounter [facility] 06-16-2024 History of Present illness Narrative Subjective Patient ID: Manish Root is a 78 y.o. male who presents for Cancer (1 mo follow up) Family History Adopted: Yes Problem Relation Name Age of Onset No Known Problems Mother No Known Problems Father Active Ambulatory Problems Diagnosis Date Noted Cancer of base of tongue ([facility]) 12/15/2022 Metastatic cancer to cervical lymph nodes ([facility]) 12/15/2022 Arteriosclerotic cardiovascular disease ([facility]) 01/15/2023 Colon cancer ([facility]) 11/19/2012 DM II (diabetes mellitus, type II), controlled ([facility]) 01/15/2023 GERD (gastroesophageal reflux disease) 01/15/2023 History of NE (myocardial infarction) ([facility]) 01/15/2023 HTN (hypertension) ([facility]) 01/15/2023 OJEDA (nonalcoholic steatohepatitis) 01/15/2023 Stage 2 chronic kidney disease 2022 Facial lesion 01/21/2023 CAD (coronary artery disease) ([facility]) 06/10/2023 Chemotherapy-induced neutropenia ([facility]) 10/19/2022 Type 2 diabetes mellitus without complications ([facility]) 06/10/2023 Diastasis recti 01/15/2023 Encounter for Medicare annual wellness exam 06/10/2023 Neck muscle spasm 11/20/2023 Throat cancer ([facility]) 12/04/2023 Hyperlipidemia ([facility]) 12/16/2023 Resolved Ambulatory Problems Diagnosis Date Noted Overweight 12/15/2022 Acute pain of right shoulder 12/15/2022 Basal cell carcinoma (BCC) of face 12/15/2022 Chemotherapy-induced neutropenia ([facility]) 10/19/2022 Diastasis recti 01/15/2023 Disorder of prostate [...] appts next visit documented in this encounter [facility] 05-26-2024 History of Present illness Narrative Lesions: Location: scalp and left [...] Actinic keratosis (6) Left Eyebrow, Left [place], Left Zygomatic Area, Right Forehead, Right Scaphoid Fossa, Right [place] Erythematous scaly papules Patient was counseled regarding [...] limited to risks of scarring, darker or contract programmer pigmentary changes, recurrence, incomplete removal and infection. [...] skin lesion - Left Eyebrow, Left [place], Left Zygomatic Area, Right Forehead, Right Scaphoid Fossa, Right [place] Next Visit: 1 year, skin check documented in this encounter [facility] 05-19-2024 History of Present illness Narrative Subjective Patient ID: Manish Root [...] GERD (gastroesophageal reflux disease) 01/15/2023 History of NE (myocardial infarction) (CMS/HCC) 01/15/2023 HTN (hypertension) (CMS/HCC) [...] colectomy with colostomy COLONOSCOPY LARYNGOSCOPY 07/31/2022 with biopsyLana Allergies Allergen Reactions Statins GI intolerance Current [...] Monthly till July documented in this encounter [facility] 05-06-2024 Instructions John England MD - 05/06/2024 3:[address] Neck and Chest in 6 months Labs same day RTC 1 week after to review documented in this encounter [facility] 05-06-2024 Note HNO ID: [id number] Author: JOHN ENGLAND MD Service: ? Author Type: Physician Type: Progress Notes Filed: 05/09/2024 10:42 Note Text: NAME: Manish Root [facility] NO.: [id number] DATE OF SERVICE: May 06, 2024 (juliana) Some elements in this clinic note [...] Ca Stage 3 - 2/5 LN + [place] regimen on protocol Updated Visit, May 06, [...] a new consolidatio (more content not included)... [facility] 05-06-2024 History of Present illness Narrative Images from the original note were not included. NAME: Manish Root [facility] NO.: [id number] DATE OF SERVICE: May 06, 2024 ([facility]) Some elements in this clinic note that [...] Ca Stage 3 - 2/5 LN + [place] regimen on protocol Updated Visit, May 06, [...] which included preparing to see the patient, [id number] patient care, completing clinical documentation, performing a medically appropriate examination, counseling and educating the patient/family/caregiver, ordering medications, tests, or procedures, independently interpreting results (not separately reported), communicating results to the patient/family/caregiver, and care coordination (not separately reported). John England MD, CPE Hematology and Oncology Services Provided at: [place], [place] CC: Dr. Yordan Morales documented in this encounter [facility] 05-06-2024 History of Present illness Narrative Radiation Oncology - Follow Up [...] Lymph 1.00 - 4.00 k/uL 0.48 (L) Phelps% % 10.4 Abs Phelps <0.87 k/uL 0.32 Eosin% % 1.6 Abs [...] Yordan Feliz MD cc: Dr. Shaikh Drake [address] [place] [address] documented in this encounter [facility] 05-06-2024 Note HNO ID: [id number] Author: Yordan FELIZ MD Service: ? Author [...] Lymph 1.00 - 4.00 k/uL 0.48 (L) Phelps% % 10.4 Abs Phelps <0.87 k/uL 0.32 Eosin% % 1.6 Abs [...] joint pain o (more content not included)... [facility] 04-30-2024 History of Present illness Narrative Images from the original note were not included. HPI Establish Care Additional comments: Previous pcp dr vidal [facility]ology twice yearly [facility] Last edited by Niki Alvarez LPN on 04/30/2024 9:03 AM. Subjective Patient ID: Manish Root is a 78 y.o. male who presents for Establish Care (Previous pcp dr drake/[facility] oncology twice yearly [facility]), Diabetes, and Hypertension. Diabetes Mellitus Patient [...] colostomy COLONOSCOPY LARYNGOSCOPY 07/31/2022 with biopsy, Lana Visit Vitals BP 134/80 Pulse 63 Ht [...] 41 - 186 ug/dL Final [facility] TIBC SERPL-NC 04/23/2024 300 232 - 386 ug/dL Final [facility] IRON/TIBC SERPL-SRTO 04/23/2024 26.0 15.0 - 57.0 % Final [facility] VIT B12 SERPL-NC 04/23/2024 349 232 - 1,245 pg/mL Final [facility] FERRITIN SERPL-NC 04/23/2024 158.0 30.3 - 565.7 ng/mL Final [facility] FOLATE SERPL-NC 04/23/2024 12.1 >4.7 ng/mL Final [facility]inis[facility] Result Encounter on 04/23/2024 Component Date Value Ref Range Status [facility] WBC # BLD AUTO 04/23/2024 3.46 (L) 3.70 - 11.00 k/uL Final [facility] RBC # BLD AUTO 04/23/2024 4.17 (L) 4.20 - 6.00 m/uL Final [facility] HGB BLD-NC 04/23/2024 13.3 13.0 - 17.0 g/dL Final [...] 74 - 99 mg/dL Final Comment: The [place] Diabetes Association (ADA) provides guidance for cutoff [...] Standards of Medical Care in Diabetes 2016, [place] Diabetes Association. Diabetes Care. 2016.39(Suppl 1). [facility] [...] all orders for this visit: Primary hypertension ([facility]) - Controlled. Controlled type 2 diabetes mellitus without complication, without long-term current use of insulin ([facility]) - POCT Glycated hemoglobin, total today - 7.4%. No changes in therapy. 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 ([facility]) - The patient is experiencing no symptoms from this condition currently, it is considered medically controlled and no change in current therapies are planned. Follow up in about 4 months (around 08/31/2024) for Routine F/U. documented in this encounter [facility] 04-23-2024 History of Present illness Narrative Radiology Service Progress Note PATIENT [...] PATIENT PRESENTS WITH AN IMPLANTABLE OR ATTACHED A AND P MECHANIC: No RADIOLOGY DEPARTMENT: CT; Exam(s) Completed: Chest and Neck PERIPHERAL IV DATA: Site assessment: Clean,Dry and Intact, Site disposition Discontinued SIGNED BY: RT Perlita(R) April 23, 2024 9:35 AM documented in this encounter [facility] 04-23-2024 Note HNO ID: [id number] Author: RAFAEL ZURITA RT(R) Service: ? Author [...] PATIENT PRESENTS WITH AN IMPLANTABLE OR ATTACHED A AND P MECHANIC: No RADIOLOGY DEPARTMENT: CT; Exam(s) Completed: Chest and Neck PERIPHERAL IV DATA: Site assessment: Clean,Dry and Intact, Site disposition Discontinued SIGNED BY: RT Perlita(R) April 23, 2024 9:35 AM [facility] 04-21-2024 History of Present illness Narrative Subjective Patient ID: Manish Root is a 78 y.o. 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/2022 Metastatic cancer to cervical lymph nodes ([facility]/HCC) 12/15/2022 Arteriosclerotic cardiovascular disease ([facility]/HCC) 01/15/2023 Colon cancer ([facility]/HCC) 11/19/2012 DM II (diabetes mellitus, type II), controlled ([facility]/HCC) 01/15/2023 GERD (gastroesophageal reflux disease) 01/15/2023 History of NE (myocardial infarction) ([facility]/HCC) 01/15/2023 HTN (hypertension) ([facility]/HCC) 01/15/2023 OJEDA (nonalcoholic steatohepatitis) 01/15/2023 Stage 2 chronic kidney disease 2022 Facial lesion 01/21/2023 CAD (coronary artery disease) ([facility]) 06/10/2023 Chemotherapy-induced neutropenia ([facility]/HCC) 10/19/2022 Type 2 diabetes mellitus without complications ([facility]/HCC) 06/10/2023 Diastasis recti 01/15/2023 Encounter for Medicare annual wellness exam 06/10/2023 Neck muscle spasm 11/20/2023 Throat cancer ([facility]) 12/04/2023 Hyperlipidemia ([facility]) 12/16/2023 Resolved Ambulatory Problems Diagnosis Date Noted Overweight 12/15/2022 Acute pain of right shoulder 12/15/2022 Basal cell carcinoma (BCC) of face 12/15/2022 Chemotherapy-induced neutropenia ([facility]/HCC) 10/19/2022 Diastasis recti 01/15/2023 Disorder of prostate 01/15/2023 Glucose intolerance 01/15/2023 History of colonic polyps 01/15/2023 History of malignant neoplasm of colon 01/15/2023 Hypercholesterolemia ([facility]) 01/15/2023 Raynaud's syndrome 01/15/2023 Vitamin D deficiency 01/15/2023 Past Medical History: Diagnosis Date Diabetes ([facility]) HCVD (hypertensive cardiovascular disease) ([facility]) Hx of myocardial infarction ([facility]) Hypertension ([facility]) Inguinal hernia, right Raynaud's disease Sinusitis Thyromegaly ([facility]) Type 2 diabetes mellitus ([facility]) Past Surgical History: Procedure Laterality Date CARDIAC [...] appt till July documented in this encounter [facility] 03-24-2024 History of Present illness Narrative Subjective Patient ID: Manish Root is a 78 y.o. male who presents for Cancer (1 mo check cancer base of tongue) Family History Adopted: Yes Problem Relation Name Age of Onset No Known Problems Mother No Known Problems Father Active Ambulatory Problems Diagnosis Date Noted Cancer of base of tongue (CMS/HCC) 12/15/2022 Metastatic cancer to cervical lymph nodes ([facility]/HCC) 12/15/2022 Arteriosclerotic cardiovascular disease ([facility]) 01/15/2023 Colon cancer ([facility]/HCC) 11/19/2012 DM II (diabetes mellitus, type II), controlled ([facility]) 01/15/2023 GERD (gastroesophageal reflux disease) 01/15/2023 History of NE (myocardial infarction) ([facility]) 01/15/2023 HTN (hypertension) ([facility]) 01/15/2023 OJEDA (nonalcoholic steatohepatitis) 01/15/2023 Stage 2 chronic kidney disease 2022 Facial lesion 01/21/2023 CAD (coronary artery disease) ([facility]) 06/10/2023 Chemotherapy-induced neutropenia ([facility]) 10/19/2022 Type 2 diabetes mellitus without complications ([facility]) 06/10/2023 Diastasis recti 01/15/2023 Encounter for Medicare annual wellness exam 06/10/2023 Neck muscle spasm 11/20/2023 Throat cancer (CMS/HCC) 12/04/2023 Hyperlipidemia ([facility]) 12/16/2023 Resolved Ambulatory Problems Diagnosis Date Noted [...] appts till July documented in this encounter [facility] 02-25-2024 History of Present illness Narrative Subjective Patient ID: Manish Root [...] GERD (gastroesophageal reflux disease) 01/15/2023 History of NE (myocardial infarction) (CMS/HCC) 01/15/2023 HTN (hypertension) (CMS/HCC) [...] colectomy with colostomy COLONOSCOPY LARYNGOSCOPY 07/31/2022 with biopsyLana Allergies Allergen Reactions Statins GI intolerance Current [...] appts till July documented in this encounter [facility] 11-06-2023 History of Present illness Narrative Radiation Oncology - Follow Up [...] Lymph 1.00 - 4.00 k/uL 0.48 (L) Phelps% % 10.4 Abs Phelps <0.87 k/uL 0.32 Eosin% % 1.6 Abs [...] Feliz MD cc: Dr. Shaikh Vidal Estrada [address] [place] [address] documented in this encounter [facility] 10-23-2023 Instructions Kelli Merchant - 10/23/2023 11:[address] Neck and Chest in 6 months Labs same day, include anemia workup RTC 1 week after to review documented in this encounter [facility] 10-23-2023 History of Present illness Narrative Images from the original note were not included. NAME: Manish Root [facility] NO.: [id number] DATE OF SERVICE: October 23, 2023 ([facility]) Some elements in this clinic note that [...] Ca Stage 3 - 2/5 LN + [place] regimen on protocol Updated Visit, October 23, [...] which included preparing to see the patient, [id number] patient care, completing clinical documentation, performing a medically appropriate examination, counseling and educating the patient/family/caregiver, ordering medications, tests, or procedures, independently interpreting results (not separately reported), communicating results to the patient/family/caregiver, and care coordination (not separately reported). John England MD, CPE Hematology and Oncology Services Provided at: [facility], [place], [place] Scribe Attestation: This note was scribed [...] Dr. Yordan Morales documented in this encounter [facility] 10-16-2023 Miscellaneous Notes Pt had labs drawn today. Requests that the results be faxed to his PCP, Dr Drake. Results of CBC and CMP faxed to [phone]. Rafael Bob RN documented in this encounter [facility] 10-16-2023 History of Present illness Narrative Radiology Service Progress Note PATIENT [...] PATIENT PRESENTS WITH AN IMPLANTABLE OR ATTACHED A AND P MECHANIC: No RADIOLOGY DEPARTMENT: CT; Exam(s) Completed: Chest and Neck PERIPHERAL IV DATA: Site assessment: Clean,Dry and Intact, Site disposition Discontinued SIGNED BY: RT Perlita(R) October 16, 2023 11:34 AM documented in this encounter [facility] 06-12-2023 History of Present illness Narrative Radiology Service Progress Note DATE [...] SITE APPEARANCE: Clean,Dry and Intact SIGNATURE: Gisela Villavicencio RN PATIENT NAME: Manish Root DATE: June [...] 2023 8:18 AM documented in this encounter [facility] 05-08-2023 History of Present illness Narrative Radiation Oncology - Follow Up [...] Feliz MD cc: Dr. Shaikh Vidal Estrada [address] [place] [address] documented in this encounter [facility] 03-20-2023 Instructions John England MD - 03/20/2023 1:[address] Chest in 3 months Labs same day RTC 1 week after to review. documented in this encounter [facility] 03-20-2023 History of Present illness Narrative Images from the original note were not included. NAME: Manish Root [facility] NO.: [id number] DATE OF SERVICE: March 20, 2023 (Jacquelyn) [...] Ca Stage 3 - 2/5 LN + [place] regimen on protocol Updated Visit, March 20, [...] which included preparing to see the patient, [id number] patient care, completing clinical documentation, performing a medically appropriate examination, counseling and educating the patient/family/caregiver, ordering medications, tests, or procedures, independently interpreting results (not separately reported), communicating results to the patient/family/caregiver, and care coordination (not separately reported). John England MD, CPE Hematology and Oncology Services Provided at: [place], [place] CC: Dr. Yordan Morales documented in this encounter [facility] 03-14-2023 History of Present illness Narrative Radiology Service Progress Note DATE [...] disposition Discontinued SIGNED BY: Rafael Zurita RT(R) March 14, 2023 1:52 PM documented in this encounter [facility] 02-06-2023 Instructions John England MD - 02/06/2023 12:[address] Chest in 5 weeks RTC 6 weeks to review please documented in this encounter [facility] 02-06-2023 History of Present illness Narrative Radiation Oncology - Follow Up [...] Yordan Feliz MD cc: Dr. Shaikh Drake Natalie [address] [place] [address] documented in this encounter [facility] 02-06-2023 History of Present illness Narrative Images from the original note were not included. NAME: Manish Root [facility] NO.: [id number] DATE OF SERVICE: February 06, 2023 ([facility]) Some elements in this clinic note that are critical to medical decision making have been carefully reviewed and included from a prior clinic note dated: November 07, 2022 (juliana) Referring Provider: Dr. Татьяна Feliz Additional Clinicians [...] Ca Stage 3 - 2/5 LN + [place] regimen on protocol Updated Visit, February 06, [...] which included preparing to see the patient, [id number] patient care, completing clinical documentation, performing a medically appropriate examination, counseling and educating the patient/family/caregiver, ordering medications, tests, or procedures, communicating with other HCPs (not separately reported), independently interpreting results (not separately reported), communicating results to the patient/family/caregiver, and care coordination (not separately reported). John England MD, CPE Hematology and Oncology Services Provided at: [place], [place] CC: Dr. Yordan Morales documented in this encounter [facility] 02-06-2023 Nurse Note Patient has easy bruising more so on arms, voice is always changing and has a lot of phlegm. Lala Hooper MA documented in this encounter [facility] 01-29-2023 History of Present illness Narrative Radiology Service Progress Note DATE [...] 1105 PATIENT DISCHARGED TO: Ambulatory patient, left [place] department area. A Diagnostic radioactive procedure has taken place, with no further precautions necessary other than routine body substance precautions. More information regarding radiation safety can be found using this link: [email or web address] SIGNATURE: RT Aron(R) PATIENT NAME: Manish Root DATE: January 29, 2023 TIME: 11:48 AM PAGER/CONTACT #: documented in this encounter [facility] 11-28-2022 History of Present illness Narrative Radiation Oncology - Follow Up [...] by: Yordan Feliz MD cc: [facility]ie [facility] [place] [address] [place] [address] documented in this encounter [facility] 11-07-2022 Instructions John England MD - 11/07/2022 9:53 AM EDT Continue seeing Dr. Feliz and Dr. Morales. RTC in 12 -13 weeks (after PET is complete) PET per Dr. Feliz Coordinate return on same date as Dr. Feliz. Labs on day return documented in this encounter [facility] 11-07-2022 History of Present illness Narrative Images from the original note were not included. NAME: Manish Root NO.: [id number] DATE OF SERVICE: November 07, 2022 (Jacquelyn) [...] Ca Stage 3 - 2/5 LN + [place] regimen on protocol Updated Visit, November 07, [...] which included preparing to see the patient, [id number] patient care, completing clinical documentation, performing a medically appropriate examination, counseling and educating the patient/family/caregiver, ordering medications, tests, or procedures, and independently interpreting results (not separately reported). John England MD, CPE Hematology and Oncology Services Provided at: [place], [place] CC: Dr. Yordan Morales documented in this encounter [facility] 2022 Evaluation note Diagnosis 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 Stage 3 chronic kidney disease, unspecified whether stage 3a or 3b CKD (HCC) documented in this encounter [facility]04[facility] History of Present illness Narrative* Natalie Cadena APRN.INJECTION MOLDING MACHINE SETTER - 10/31/2022 2:30 PM EDT Images from the original note were not included. NAME: Root [facility] NO.: [id number] DATE OF SERVICE: October 31, 2022 (Surinder) [...] Ca Stage 3 - 2/5 LN + [place] regimen on protocol Updated Visit, October 31, [...] Not Currently No family history on file. Natalie Cadena APRN.CNP Hematology and Oncology Services Provided at: [place], [place] CC: Dr. Yordan Morales I spent a total of 30 minutes on the date of the service which included preparing to see the patient, [id number] patient care, completing clinical documentation, obtaining and/or reviewing separately obtained history, performing a medically appropriate examination, counseling and educating the pat ient/family/caregiver, ordering medications, tests, or procedures, independently interpreting results (not separately reported), and communicating results to the patient/family/caregiver. [facility] History of Present illness Narrative* Yordan Feliz [...] by: Yordan Feliz MD cc: Mannie [facility] [place] [address] Natalie Cadena [address] [place] [address] [place] [address] documented in [facility] encounter[facility] History of Present illness Narrative* Natalie Cadena APRN.INJECTION MOLDING MACHINE SETTER - 10/25/2022 10:01 AM EDT Images from the original note were not included. NAME: Manish Root [facility] NO.: [id number] DATE OF SERVICE: October 25, 2022 (Surinder) [...] Ca Stage 3 - 2/5 LN + [place] regimen on protocol Updated Visit, October 25, [...] Currently History reviewed. No pertinent family history. Natalie Cadena APRN.CNP Hematology and Oncology Services Provided at: [place], [place] CC: Dr. Yordan Morales I spent a total of 30 minutes on the date of the service which included preparing to see the patient, [id number] patient care, completing clinical documentation, obtaining and/or reviewing separately obtained history, performing a medically appropriate examination, counseling and educating the pat ient/family/caregiver, ordering medications, tests, or procedures, independently interpreting results (not separately reported), and communicating results to the patient/family/caregiver. documented in this encounter[facility] History of Present illness Narrative* Yordan Feliz MD - 10/22/2022 12:00 AM EDT [facility] Radiation Oncology Department RADIATION ONCOLOGY - [...] cc: Dr. 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 Neupogen 480 mcg x 1 today Needs to hydrate. Labs next Saturday CBC, CMP, possible hydration Stay for results - see Natalie documented in this encounterAs[facility]04[facility] History of Present illness Narrative* John England MD - 10/19/2022 10:05 AM EDT Images from the original note were not included. NAME: Manish Root [facility] NO.: [id number] DATE OF SERVICE: October 19, 2022 (Jacquelyn) [...] possible hydration Stay for results - see Natalie HPI: CASE HISTORY: Reverse Chronological Order 07/31/2022 [...] Ca Stage 3 - 2/5 LN + [place] regimen on protocol Updated Visit, October 19, [...] which included preparing to see the patient, [id number] patient care, completing clinical documentation, obtaining and/or reviewing separately obtained history, counseling and educating the patient/family/caregiver, ordering medications, cliff ts, or procedures, and independently interpreting results (not separately reported). John England MD, CPE Hematology and Oncology Services Provided at: [place], [place] CC: Dr. Yordan Morales documented in this encounter[facility]04[facility] History of Present illness Narrative* Yordan Feliz [...] discussed. Yordan Feliz MD documented in this encounterAs[facility]04[facility]23 Miscellaneous Notes* Telephone Encounter - Diana García [...] recommendations? Diana García LPN documented in this encounterAs[facility]04[facility] History of Present illness Narrative* G Jeyson [...] outlined. Yordan Feliz MD documented in this encounterAs[facility]03-[facility]23 History of Present illness Narrative* Dee Gil RD - 10/05/2022 10:45 AM EDT Oncology Nutrition Therapy Progress Note Attemped to see patient, however patient left after radiation treatment and did not stay for appointment with dietitian. Signed by: Dee Gil MS, RDN, LD documented in this encounterAs[facility]03-[facility] History of Present illness Narrative* Natalie Cadena APRN.INJECTION MOLDING MACHINE SETTER - 10/01/2022 11:26 AM EDT Images from the original note were not included. NAME: Manish Root [facility] NO.: [id number] DATE OF SERVICE: October 01, 2022 (Surinder) [...] Ca Stage 3 - 2/5 LN + [place] regimen on protocol Updated Visit, October 01, [...] node level 2 left neck no other iasmar Mouth: Masked. Respiratory: Appears to be respiring [...] Not Currently No family history on file. Natalie Cadena APRN.PEEWEE Hematology and Oncology Services Provided at: [place], [place] CC: Dr. Yordan Morales I spent a total of 30 minutes on the date of the service which included preparing to see the patient, [id number] patient care, completing clinical documentation, obtaining and/or reviewing separately obtained history, performing a medically appropriate examination, counseling and educating the pat ient/family/caregiver, ordering medications, tests, or procedures, independently interpreting results (not separately reported), and communicating results to the patient/family/caregiver. documented in this encounterAs[facility]03[facility] History of Present illness Narrative* Yordan Feilz MD - 10/01/2022 10:30 AM EDT Radiation [...] outlined. Yordan Feliz MD documented in this encounterAs[facility]03[facility] History of Present illness Narrative* Yordan Feliz [...] Continue radiation as outlined. documented in this encounterAs[facility]03-[facility]23 History of Present illness Narrative* Dee Gil [...] Dosing Weight: 84.8 kg Estimated kilocalorie needs: 9299-4973 kilocalories determined by 25-30 kcal/kg Estimated protein needs: 85-102 grams determined by 1.0-1.2 g/kg Current weight Estimated fluid needs: ~5782-1635 milliliters based on 1 mL per kcal [...] Gil MS, RDN, LD documented in this encounterAs[facility]03[facility] History of Present illness Narrative* Yordan Feliz [...] Continue radiation as outlined. documented in this encounterAs[facility]03-[facility]23 History of Present illness Narrative* Yordan Feliz [...] Continue radiation as outlined. documented in this encounterAsht[facility]03-03-2023 Miscellaneous Notes* Telephone Encounter - ISH Waite - 09/07/2022 12:11 PM EST SOCIAL WORK FOLLOW UP NOTE: [facility] Date of service:09/07/22 Manish Yi Dk is being seen for a follow up social work visit. Today's visit includes: patient TOPICS ADDRESSED: community resources and [facility] PLAN: Assist with financial support applications and Continue follow up as needed F/U APPOINTMENT: PRN Assigned JEANNETTE listed in Care Team tab: Yes Patient dropped off a partial completed intake form for the [facility]. Jeannette completed the medical section of the form and faxed it to Maren at the [facility]. JEANNETTE called Maren to verify that the fax was received. SW called Patient to let him know that his application was received and he needs to call Maren to talk about next steps. JEANNETTE will remain available and will follow up as appropriate. CHARLIE Waite documented in this encounterAsht[facility]03-02-[facility]23 Miscellaneous Notes* Telephone Encounter - Rafael Bob RN - 09/06/2022 1:36 PM EST CYCLE [...] attention and after hours number protocol. Rafael Bob RN documented in this encounterAs[facility] History of Present illness Narrative* Nica Green [...] ordered. Araceli Anne RN documented in this encounterAshtabula County [facility] Center02-27-2023 Instructions* Patient Instructions* John England MD - 09/03/2022 11:12 AM EST Start Cisplatin weekly to start with radiation Labs weekly please. RTC 1 week See Amina / Natalie Labs same day. documented in this encounterAshtabula County [facility] Center02-27-2023 History of Present illness Narrative* John England MD - 09/03/2022 10:45 AM EST Images from the original note were not included. NAME: Manish Root [facility] NO.: [id number] DATE OF SERVICE: September 03, 2022 (Jacquelyn) [...] please. RTC 1 week See Amina / Natalie Labs same day. HPI: CASE HISTORY: Reverse [...] Ca Stage 3 - 2/5 LN + [place] regimen on protocol Updated Visit, September 03, 2022: Manish returns with his Jahaira. Ready to start chemo + RT - RT started. Ready for cisplatin. Initial Visit, August 16, 2022: Manish Kassidy Root presents today Hematology and Oncology evaluation. [...] which included preparing to see the patient, [id number] patient care, completing clinical documentation, performing a medically appropriate examination, counseling and educating the patient/family/caregiver, ordering medications, tests, or p rocedures, communicating with other HCPs (not separately reported), independently interpreting results (not separately reported), and care coordination (not separately reported). John England MD, CPE Hematology and Oncology Services Provided at: [place], [place] CC: MD Serene Mcclendon MD documented in this encounterAshtabula [facility] Center02-27-2023 History of Present illness Narrative* Yordan Feliz [...] Continue radiation as prescribed. documented in this encounterAshtabula County [facility] Center02-22-2023 Miscellaneous Notes* Telephone Encounter - Rafael Bob RN - 08/29/2022 12:52 PM EST Pt calls w/ questions pertaining to his upcoming treatment. Questions reviewed and answered. Pt denies any further questions at this time. Rafael Bob RN documented in this encounterAshtabula County [facility] Center02-21-2023 Miscellaneous Notes* Telephone Encounter - Rafael Bob RN - 08/28/2022 5:17 PM EST Pt notified and verbalizes understanding. Rafael Bob RN * Telephone Encounter - John England MD - 08/28/2022 5:15 PM EST Pet is localized - no mets * Telephone Encounter - Rafael Bob RN - 08/28/2022 2:52 PM EST Pt calls again requesting PET results. Please advise. Rafael Bob RN * Telephone Encounter - Rafael Bob RN - 08/28/2022 10:35 AM EST Pt calls for yesterday's PET results. Please review and advise. Thanks! Rafael Bob RN documented in this encounterAshtabula County [facility] Center02-20-2023 Miscellaneous Notes* Telephone Encounter - Rafael Bob RN - 08/27/2022 11:23 AM EST Pt had several questions pertaining to treatment while he was here today. Questions reviewed and answered in person. No additional questions noted. Appointment reminder provided to pt as well. Rafael Bob RN documented in this encounterAshtabula County [facility] Center02-20-2023 History of Present illness Narrative* Barry Burnett [...] FDG. No other medications given.. ADMINISTRATION TIME: 941 PATIENT DISCHARGED TO: Ambulatory patient, left [place] department area. A Diagnostic radioactive procedure has taken place, with no further precautions necessary other than routine body substance precautions. More information regarding radiation safety can be found usingthis link: [email or web address] SIGNATURE: Rafael Zurita, RT(R) PATIENT NAME: Manish Root DATE: August 27, 2022 TIME: 9:53 AM PAGER/CONTACT #: documented in this encounterAshtabula County Medical Center02-17-2023 Miscellaneous Notes* Telephone Encounter - Madonna Barnes - 08/24/2022 9:[address] Grady patient. Patient has been scheduled for RV and treatment to begin after XRT on 09/03. Call placed to patient, no answer. Left detailed message on voicemail informing patient he will be seeing Dr. Mccallum and starting chemotherapy same day. Madonna Barnes * Telephone Encounter - Rafael Bob RN - 08/23/2022 5:23 PM EST Clerical: Pt to start radiation on 09/03/22. Pt will need to see [facility] that day as well for chemotherapy (Cisplatin). Please schedule and notify pt of appointment. Thanks! Rafael Bob RN documented in this encounterAshtabula County Medical Center02-16-2023 History of Present illness Narrative* G Jeyson Feliz MD - 08/23/2022 12:00 AM EST MANISH ROOT [id number] 08/23/2022 [facility] Radiation Oncology Department SIMULATION NOTE DATE OF SIMULATION: 08/23/2022 THERAPIST: Vinita Calderon MACHINE: [employer] DIAGNOSIS: Malignant neoplasm of base of [id number] AREA: H&N CONTRAST: IV Consent in Epic: [...] / NRS 1:21 AM documented in this encounterAshtabula County Medical Center02-16-2023 History of Present illness Narrative* Yordan Feliz MD - 08/23/2022 12:00 AM EST MANISH ROOT [id number] 08/23/2022 [facility] Department of Radiation Oncology Treatment Planning [...] Feliz M.D. 0:14 AM documented in this encounterAshtabula County Medical Center02-14-2023 Miscellaneous Notes* Telephone Encounter - Rafael Bob RN - 08/21/2022 3:16 PM EST Pt will be in on for education (Cisplatin). Scripts for antiemetics pended. Sincere: Please place chemotherapy orders. Thanks! Rafael Bob RN documented in this encounterAshtabula County Medical Center02-13-2023 History of Present illness Narrative* Dee Gil [...] Dosing Weight: 84.7 kg Estimated kilocalorie needs: 6587-5933 kilocalories determined by 25-30 kcal/kg Estimated protein needs: 85-102 grams determined by 1.0-1.2 g/kg Dosing weight Estimated fluid needs: ~5047-7859 milliliters based on 1 mL per kcal [...] Gil MS, RDN, LD documented in this encounterAshtabula County Medical Center02-09-2023 Instructions* Patient Instructions* John England MD - 08/16/2022 4:45 PM EST Will plan Cisplatin weekly to start with radiation Needs labs next visit at time of Sim. RTC prior to start Consent signed Needs education documented in this encounterAshtabula County Medical Center02-09-2023 History of Present illness Narrative* John England MD - 08/16/2022 4:06 PM EST Images from the original note were not included. NAME: Manish Root [facility] NO.: [id number] DATE OF SERVICE: August 16, 2022 Referring [...] Ca Stage 3 - 2/5 LN + [place] regimen on protocol Initial Visit, August 16, 2022: Manish Root presents today Hematology and Oncology evaluation. He is a 76 year old male who presents with his significant other named Jahiara. He presents for discussion of combined modality [...] which included preparing to see the patient, [id number] patient care, completing clinical documentation, performing a medically appropriate examination, counseling and educating the patient/family/caregiver, ordering medications, tests, or p rocedures, communicating with other HCPs (not separately reported), independently interpreting results (not separately reported), and care coordination (not separately reported). John England MD, CPE Hematology and Oncology Services Provided at: [place], [place] CC: MD Serene Mcclendon MD documented in this encounterAshtabula County Medical Center02-08-2023 Miscellaneous Notes* Telephone Encounter - Randal Brooks - 08/15/2022 1:14 PM EST Patient called back and said that he is scheduled at [facility] in [place], [place] 08/15/22. Dental evaluation form has been faxed to: [phone]. Randal Brooks * Telephone Encounter - Randal Brooks - 08/15/2022 11:47 AM EST Patient has been scheduled for dental appointment at [facility] on 09/04. Due to the nature of request, patient has also been placed on a cancellation list if a soon appointment becomes available. Called patient, ISHA with detailed information. Randal Brooks * Telephone Encounter - Nela Antoine RN - 08/15/2022 10:10 AM EST E- order has been signed. Nela Antoine RN * Telephone Encounter - Nela Antoine RN - 08/15/2022 9:56 AM EST [facility] will need referral placed to see pt and schedule dental eval for clearance. Dr Dave- can you please sign in Dr Feliz's absence? Thank you Nela Antoine RN documented in this encounterAshtabula County Medical Center02-07-2023 History of Present illness Narrative* Yordan Feliz [...] voice changes that his family noticed at [facility], and he has had approximate 11 pound [...] the lung. Would recommend concurrent radiation with benton based chemotherapy. Patient is eligible for current [...] Yordan Feliz MD cc: Mannie Nelson [address] [place] [address] Serene Morales MD [address] [place] [id number] documented in this encounterAshtabula County Medical Center02-07-2023 Nurse Note* Nela Antoine RN - 08/14/2022 10:58 AM EST Radiation Therapy - Patient Education Note PATIENT NAME: Manish Root PATIENT August 14, 2022 [facility]/LOCATION: [facility] READINESS TO LEARN Cognitive Ability: Alert and [...] Given Referral (recommendation): Dietitian Signed by: Nela Antoine RN documented in this encounterAshtabula County Medical Center01-24-2023 NoteOPERATIVE NOTE OPERATION DATE: 07/31/2022 PRIMARY CARE [...] to the recovery room in good condition.[facility] [id number] NoteOPERATIVE NOTE OPERATION DATE: 07/18/2022 PREOPERATIVE DIAGNOSIS: [...] the pathology results. CC: Patient's family physicianThe [facility] Clinic [facility] [id number] NoteChief Complaint consultation for colon recall HPI [...] cancer, and history of colonpolyps; last colonoscopy 2017 with removal of small tubular adenoma in [...] cancer History of colon polyps History of NE (myocardial infarction) HTN (hypertension) Hypercholesterolemia OJEDA (nonalcoholic [...] Oral, Daily ergocalciferol 50,000 intl units Cap, 27971 International_Unit= 1 cap(s), Oral, qWeek fenofibrate 134 [...] 06/13/2022 Family History Patient (more content not included)...[facility] HospitalComment on above:Result Comment: Electronically Signed By: JAQUAN WELCH, Renea Anderson\Date and Time Signed: 06/13/22 15:31 [id number] History of Past illness Narrative* Problem Noted Date Resolved Date 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/28/20 15 04/28/2015 documented as of this encounter (statuses as of 08/14/2022) [address]22-2015 History of Past illness Narrative* Problem Noted Date Resolved Date 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/28/20 15 04/28/2015 documented as of this encounter (statuses as of 08/14/2022) [address]22-2015 History of Past illness Narrative* Problem Noted Date Resolved Date 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/28/20 15 04/28/2015 documented as of this encounter (statuses as of 08/15/2022) [address]22-2015 History of Past illness Narrative* Problem Noted Date Resolved Date 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/28/20 15 04/28/2015 documented as of this encounter (statuses as of 08/17/2022) [address]22-2015 History of Past illness Narrative* Problem Noted Date Resolved Date 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/28/20 15 04/28/2015 documented as of this encounter (statuses as of 08/20/2022) [address]22-2015 History of Past illness Narrative* Problem Noted Date Resolved Date Overlapping malignant neoplasm of colon 04/28/20 15 04/28/2015 documented as of this encounter (statuses as of 08/22/2022) [address]22-2015 History of Past illness Narrative* Problem Noted Date Resolved Date Overlapping malignant neoplasm of colon 04/28/20 15 04/28/2015 documented as of this encounter (statuses as of 08/22/2022) [address]22-2015 History of Past illness Narrative* Problem Noted Date Resolved Date Overlapping malignant neoplasm of colon 04/28/20 15 04/28/2015 documented as of this encounter (statuses as of 08/24/2022) [address]22[address]2015 History of Past illness Narrative* Problem Noted Date Resolved Date Overlapping malignant neoplasm of colon 04/28/20 15 04/28/2015 documented as of this encounter (statuses as of 08/24/2022) [address]22[address]2015 History of Past illness Narrative* Problem Noted Date Resolved Date Overlapping malignant neoplasm of colon 04/28/20 15 04/28/2015 documented as of this encounter (statuses as of 08/27/2022) [address]22-2015 History of Past illness Narrative* Problem Noted Date Resolved Date Overlapping malignant neoplasm of colon 04/28/20 15 04/28/2015 documented as of this encounter (statuses as of 08/27/2022) [address]22-2015 History of Past illness Narrative* Problem Noted Date Resolved Date Overlapping malignant neoplasm of colon 04/28/20 15 04/28/2015 documented as of this encounter (statuses as of 08/28/2022) [address]22-2015 History of Past illness Narrative* Problem Noted Date Resolved Date Overlapping malignant neoplasm of colon 04/28/20 15 04/28/2015 documented as of this encounter (statuses as of 08/29/2022) [address]22[address]2015 History of Past illness Narrative* Problem Noted Date Resolved Date Overlapping malignant neoplasm of colon 04/28/20 15 04/28/2015 documented as of this encounter (statuses as of 09/03/2022) [address]22[address]2015 History of Past illness Narrative* Problem Noted Date Resolved Date Overlapping malignant neoplasm of colon 04/28/20 15 04/28/2015 documented as of this encounter (statuses as of 09/03/2022) [address]22[address]2015 History of Past illness Narrative* Problem Noted Date Resolved Date Overlapping malignant neoplasm of colon 04/28/20 15 04/28/2015 documented as of this encounter (statuses as of 09/04/2022) [address]2015 History of Past illness Narrative* Problem Noted Date Resolved Date Overlapping malignant neoplasm of colon 04/28/20 15 04/28/2015 documented as of this encounter (statuses as of 09/06/2022) [address]22[address]2015 History of Past illness Narrative* Problem Noted Date Resolved Date Overlapping malignant neoplasm of colon 04/28/20 15 04/28/2015 documented as of this encounter (statuses as of 09/07/2022) [address]22[address]2015 History of Past illness Narrative* Problem Noted Date Resolved Date Overlapping malignant neoplasm of colon 04/28/20 15 04/28/2015 documented as of this encounter (statuses as of 09/10/2022) [address]22[address]2015 History of Past illness Narrative* Problem Noted Date Resolved Date Overlapping malignant neoplasm of colon 04/28/20 15 04/28/2015 documented as of this encounter (statuses as of 09/10/2022) [address]22-2015 History of Past illness Narrative* Problem Noted Date Resolved Date Overlapping malignant neoplasm of colon 04/28/20 15 04/28/2015 documented as of this encounter (statuses as of 09/11/2022) [address]22-2015 History of Past illness Narrative* Problem Noted Date Resolved Date Overlapping malignant neoplasm of colon 04/28/20 15 04/28/2015 documented as of this encounter (statuses as of 09/17/2022) [address]22-2015 History of Past illness Narrative* Problem Noted Date Resolved Date Overlapping malignant neoplasm of colon 04/28/20 15 04/28/2015 documented as of this encounter (statuses as of 09/18/2022) [address]22-2015 History of Past illness Narrative* Problem Noted Date Resolved Date Overlapping malignant neoplasm of colon 04/28/20 15 04/28/2015 documented as of this encounter (statuses as of 09/21/2022) [address]22-2015 History of Past illness Narrative* Problem Noted Date Resolved Date Overlapping malignant neoplasm of colon 04/28/20 15 04/28/2015 documented as of this encounter (statuses as of 09/24/2022) [address]22-2015 History of Past illness Narrative* Problem Noted Date Resolved Date Overlapping malignant neoplasm of colon 04/28/20 15 04/28/2015 documented as of this encounter (statuses as of 10/01/2022) [address]22-2015 History of Past illness Narrative* Problem Noted Date Resolved Date Overlapping malignant neoplasm of colon 04/28/20 15 04/28/2015 documented as of this encounter (statuses as of 10/03/2022) [address]22[address]2015 History of Past illness Narrative* Problem Noted Date Resolved Date Overlapping malignant neoplasm of colon 04/28/20 15 04/28/2015 documented as of this encounter (statuses as of 10/05/2022) [address]22-2015 History of Past illness Narrative* Problem Noted Date Resolved Date Overlapping malignant neoplasm of colon 04/28/20 15 04/28/2015 documented as of this encounter (statuses as of 10/08/2022) [address]22[address]2015 History of Past illness Narrative* Problem Noted Date Resolved Date Overlapping malignant neoplasm of colon 04/28/20 15 04/28/2015 documented as of this encounter (statuses as of 10/09/2022) [address]22-2015 History of Past illness Narrative* Problem Noted Date Resolved Date Overlapping malignant neoplasm of colon 04/28/20 15 04/28/2015 documented as of this encounter (statuses as of 10/11/2022) [address]22-2015 History of Past illness Narrative* Problem Noted Date Resolved Date Overlapping malignant neoplasm of colon 04/28/20 15 04/28/2015 documented as of this encounter (statuses as of 10/15/2022) [address]22-2015 History of Past illness Narrative* Problem Noted Date Resolved Date Overlapping malignant neoplasm of colon 04/28/20 15 04/28/2015 documented as of this encounter (statuses as of 10/19/2022) [address]22-2015 History of Past illness Narrative* Problem Noted Date Resolved Date Overlapping malignant neoplasm of colon 04/28/20 15 04/28/2015 documented as of this encounter (statuses as of 10/20/2022) [address]22-2015 History of Past illness Narrative* Problem Noted Date Resolved Date Overlapping malignant neoplasm of colon 04/28/20 15 04/28/2015 documented as of this encounter (statuses as of 10/26/2022) [address]22-2015 History of Past illness Narrative* Problem Noted Date Resolved Date Overlapping malignant neoplasm of colon 04/28/20 15 04/28/2015 documented as of this encounter (statuses as of 2022) [address]22-2015 History of Past illness Narrative* Problem Noted Date Resolved Date Overlapping malignant neoplasm of colon 04/28/20 15 04/28/2015 documented as of this encounter (statuses as of 2022) [address]22-2015 History of Past illness Narrative* Problem Noted Date Resolved Date Overlapping malignant neoplasm of colon 04/28/20 15 04/28/2015 documented as of this encounter (statuses as of 2022) [address]22-2015 History of Past illness Narrative* Problem Noted Date Resolved Date Overlapping malignant neoplasm of colon 04/28/20 15 04/28/2015 documented as of this encounter (statuses as of 11/07/2022) [address]22-2015 History of Past illness Narrative* Problem Noted Date Resolved Date Overlapping malignant neoplasm of colon 04/28/20 15 04/28/2015 documented as of this encounter (statuses as of 11/07/2022) [address]22-2015 History of Past illness Narrative* Problem Noted Date Resolved Date Overlapping malignant neoplasm of colon 04/28/20 15 04/28/2015 documented as of this encounter (statuses as of 12/04/2022) [address]22-2015 History of Past illness Narrative* Problem Noted Date Diagnosed Date Resolved Date 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 04/28/2015 documented as of this encounter (statuses as of 02/06/2023) [address]22-2015 History of Past illness Narrative* Problem Noted Date Diagnosed Date Resolved Date 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 04/28/2015 documented as of this encounter (statuses as of 02/06/2023) [address]22-2015 History of Past illness Narrative* Problem Noted Date Diagnosed Date Resolved Date 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 04/28/2015 documented as of this encounter (statuses as of 02/11/2023) [address]22-2015 History of Past illness Narrative* Problem Noted Date Diagnosed Date Resolved Date 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 04/28/2015 documented as of this encounter (statuses as of 03/20/2023) [address]22-2015 History of Past illness Narrative* Problem Noted Date Diagnosed Date Resolved Date 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 04/28/2015 documented as of this encounter (statuses as of 05/15/2023) [address]22-2015 History of Past illness Narrative* Problem Noted Date Diagnosed Date Resolved Date 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 04/28/2015 documented as of this encounter (statuses as of 10/17/2023) [facility] No data available for this section General [facility]* Diagnosis 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, unspecified site surveyor and neck cancer (HCC) Malignant neoplasm of head, face, and neck documented in this encounter [facility] note* Diagnosis 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, unspecified site documented in this encounter [facility] note* Diagnosis 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) documented in this encounter [facility] note* Diagnosis 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, unspecified site documented in this encounter [facility] note* Diagnosis 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, unspecified site [facility] encounter [facility]* Diagnosis 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 [facility]* Diagnosis 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 [facility]* Diagnosis 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, unspecified site [facility]* Diagnosis 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 [facility]* Diagnosis 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, unspecified site [facility]* Diagnosis 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 [facility]* Diagnosis 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, unspecified site [facility]* Diagnosis 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) [facility]* Diagnosis 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 [facility]* Diagnosis 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, unspecified site [facility]* Diagnosis 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, unspecified site [facility]* Diagnosis Cancer of base of tongue [...] 2 diabetes mellitus without complication, unspecified whether nursing home insulin use (HCC) Unspecified essential hypertension documented [...] transport and metabolism documented in this encounter [facility]* Diagnosis 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 [facility]* Diagnosis Other specified disorders of thyroid- Primary [facility] 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 Lung nodules Other nonspecific abnormal finding of lung field Stage 3 chronic kidney disease, unspecified whether stage 3a or 3b CKD (HCC) [facility] Head and neck cancer (HCC)- Primary Malignant neoplasm of head, face, and neck [facility] noteNo assessment [facility] Evaluation [facility]* Diagnosis Lung nodules Other nonspecific abnormal finding of lung field 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) [facility] Diagnosis 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) Mass of right lung [facility] Diagnosis Lung nodules Other nonspecific abnormal finding of lung field [facility] Diagnosis 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) [facility] Diagnosis Tongue cancer (HCC) 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, unspecified site surveyor and neck cancer (HCC) Malignant neoplasm of head, face, and neck [facility] Primary hypertension (CMS/HCC)- Primary Unspecified essential hypertension 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 ([facility]/HCC) Controlled type 2 diabetes mellitus without complication, without long-term current use of insulin ([facility]) Encounter for Medicare annual wellness exam Neck muscle spasm- Primary Type 2 diabetes mellitus without complications (CMS/HCC) Controlled type 2 diabetes mellitus without complication, without long-term current use of insulin (CMS/HCC) Stage 2 chronic kidney disease- Primary Type 2 diabetes mellitus without complication, without long-term current use of insulin ([facility]/HCC) Primary hypertension (CMS/HCC) Unspecified essential hypertension Hyperlipidemia, unspecified hyperlipidemia type (CMS/HCC) 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 (CMS/HCC) Controlled type 2 diabetes mellitus without complication, without long-term current use of insulin (CMS/HCC) 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 documented in [facility] encounter [facility]* Diagnosis 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 Other nonspecific abnormal finding of lung field [facility] Primary hypertension (CMS/HCC)- Primary Unspecified essential hypertension 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 (CMS/HCC) Controlled type [...] hyperlipidemia type (CMS/HCC) 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 (CMS/HCC) Controlled type 2 diabetes mellitus without complication, without long-term current use of insulin (CMS/HCC) Primary hypertension (CMS/HCC)- Primary Unspecified essential hypertension Controlled type 2 diabetes mellitus without complication, without long-term current use of insulin (CMS/HCC) 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 (CMS/HCC) documented in this encounter [facility]* Diagnosis 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 Lung nodules Other nonspecific abnormal finding of lung field Stage 3 chronic kidney disease, unspecified whether stage 3a or 3b CKD (HCC) [facility] Diagnosis Head and neck cancer (HCC)- Primary Malignant neoplasm of head, face, and neck [facility] Primary hypertension (CMS/HCC)- Primary Unspecified essential hypertension 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 (CMS/HCC) Controlled type [...] hyperlipidemia type (CMS/HCC) 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 (CMS/HCC) Controlled type 2 diabetes mellitus without complication, without long-term current use of insulin (CMS/HCC) Primary hypertension (CMS/HCC) Unspecified essential hypertension documented in this encounter [facility]* Diagnosis Primary hypertension (CMS/HCC)- Primary Unspecified essential hypertension 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 (CMS/HCC) Controlled type 2 diabetes mellitus without complication, without long-term current use of insulin (/HCC) Encounter for Medicare annual wellness exam Neck muscle spasm- Primary Type 2 diabetes mellitus without complications (CMS/HCC) Controlled type 2 diabetes mellitus without complication, without long-term current use of insulin (CMS/) Stage 2 chronic kidney disease- Primary Type 2 diabetes mellitus without complication, without long-term current use of insulin (/HCC) Primary hypertension (CMS/HCC) Unspecified essential hypertension Hyperlipidemia, unspecified hyperlipidemia type (CMS/HCC) 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 (CMS/HCC) Controlled type 2 diabetes mellitus without complication, without long-term current use of insulin (/HCC) Seborrheic keratosis- Primary Actinic keratosis documented in this encounter [facility]* Diagnosis Primary hypertension (CMS/HCC)- Primary Unspecified essential hypertension 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 (CMS/HCC) Controlled type 2 diabetes mellitus without complication, without long-term current use of insulin (/HCC) Encounter for Medicare annual wellness exam Neck muscle spasm- Primary Type 2 diabetes mellitus without complications (CMS/HCC) Controlled type 2 diabetes mellitus without complication, without long-term current use of insulin (CMS/HCC) Stage 2 chronic kidney disease- Primary Type 2 diabetes mellitus without complication, without long-term current use of insulin (/HCC) Primary hypertension (CMS/HCC) Unspecified essential hypertension Hyperlipidemia, unspecified hyperlipidemia type (CMS/HCC) 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 (CMS/HCC) Controlled type [...] Unspecified essential hypertension 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 (CMS/HCC) Controlled type [...] hyperlipidemia type (CMS/HCC) 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 (CMS/HCC) Controlled type [...] Unspecified essential hypertension 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 (CMS/HCC) Controlled type [...] hyperlipidemia type (CMS/HCC) 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 (CMS/HCC) Controlled type 2 diabetes mellitus without complication, without long-term current use of insulin (CMS/HCC) Need for vaccination Need for prophylactic vaccination and inoculation against unspecified single disease documented in this encounter [facility]* Diagnosis Primary hypertension (CMS/HCC)- Primary Unspecified essential hypertension 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 (CMS/HCC) Controlled type [...] hyperlipidemia type (CMS/HCC) 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 (CMS/HCC) Controlled type 2 diabetes mellitus without complication, without long-term current use of insulin (CMS/HCC) 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 documented in this encounter [facility]* Diagnosis Primary hypertension (CMS/HCC)- Primary Unspecified essential hypertension 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 (CMS/HCC) Controlled type [...] hyperlipidemia type (CMS/HCC) 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 (CMS/HCC) Controlled type [...] Moderate mixed hyperlipidemia not requiring statin therapy (CMS/[facility]) Prostate cancer screening Special screening for malignant neoplasm of prostate 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, without long-term current use of insulin ([facility]) Torticollis Torticollis, unspecified Actinic keratosis documented in this encounter [facility]* Diagnosis Primary hypertension (/HCC)- Primary Unspecified essential hypertension 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 (/[facility]) Controlled type 2 diabetes mellitus without complication, without long-term current use of insulin ([facility]) Encounter for Medicare annual wellness exam Neck muscle spasm- Primary Type 2 diabetes mellitus without complications (/[facility]) Controlled type 2 diabetes mellitus without complication, without long-term current use of insulin (/[facility]) Stage 2 chronic kidney disease- Primary Type 2 diabetes mellitus without complication, without long-term current use of insulin (/[facility]) Primary hypertension (/[facility]) Unspecified essential hypertension Hyperlipidemia, unspecified hyperlipidemia type (/[facility]) 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 (/[facility]) Controlled type 2 diabetes mellitus without complication, without long-term current use of insulin (/[facility]) Seborrheic keratosis- Primary Actinic keratosis Seborrheic keratosis, inflamed documented in this encounter [facility]* Diagnosis Primary hypertension (/HCC)- Primary Unspecified essential hypertension 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 (/[facility]) Controlled type 2 diabetes mellitus without complication, without long-term current use of insulin Encounter for Medicare annual wellness exam Neck muscle spasm- Primary Type 2 diabetes mellitus without complications Controlled type 2 diabetes mellitus without complication, without long-term current use of insulin Stage 2 chronic kidney disease- Primary Type 2 diabetes mellitus without complication, without long-term current use of insulin Primary hypertension ([facility]) Unspecified essential hypertension Hyperlipidemia, unspecified hyperlipidemia type (/[facility]) 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 (/[facility]) Controlled type 2 diabetes mellitus without complication, without long-term current use of insulin Neck pain on left side- Primary Left hip pain Pain in joint, pelvic region and thigh Osteoarthritis, unspecified osteoarthritis type, unspecified site Stress incontinence of urine documented in this encounter [facility]Evaluation note* Diagnosis Primary hypertension (CMS/HCC)- Primary Unspecified essential hypertension 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 (CMS/HCC) Controlled type 2 diabetes mellitus without complication, without long-term current use of insulin Encounter for Medicare annual wellness exam Neck muscle spasm- Primary Type 2 diabetes mellitus without complications Controlled type 2 diabetes mellitus without complication, without long-term current use of insulin Stage 2 chronic kidney disease- Primary Type 2 diabetes mellitus without complication, without long-term current use of insulin Primary hypertension (CMS/HCC) Unspecified essential hypertension Hyperlipidemia, unspecified hyperlipidemia type (CMS/HCC) 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 (CMS/HCC) Controlled type 2 diabetes mellitus without complication, without long-term current use of insulin 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 documented in this encounter [facility]* Diagnosis Primary hypertension (CMS/HCC)- Primary Unspecified essential hypertension 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 (CMS/HCC) Controlled type 2 diabetes mellitus without complication, without long-term current use of insulin Encounter for Medicare annual wellness exam Neck muscle spasm- Primary Type 2 diabetes mellitus without complications Controlled type 2 diabetes mellitus without complication, without long-term current use of insulin Stage 2 chronic kidney disease- Primary Type 2 diabetes mellitus without complication, without long-term current use of insulin Primary hypertension (CMS/HCC) Unspecified essential hypertension Hyperlipidemia, unspecified hyperlipidemia type (CMS/HCC) 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 (CMS/HCC) Controlled type 2 diabetes mellitus without complication, without long-term current use of insulin Primary osteoarthritis of left hip- Primary Neck pain on left side Left hip pain Pain in joint, pelvic region and thigh Spondylosis of cervical region without myelopathy or radiculopathy Rheumatoid arthritis, unspecified documented in this encounter [facility]* Diagnosis 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 Lung nodules Other nonspecific abnormal finding of lung field Stage 3 chronic kidney disease, unspecified whether stage 3a or 3b CKD (HCC) [facility] Acquired hypothyroidism- Primary Unspecified hypothyroidism [facility] Diagnosis Primary hypertension (CMS/HCC)- Primary Unspecified essential hypertension 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 (CMS/HCC) Controlled type 2 diabetes mellitus without complication, without long-term current use of insulin Encounter for Medicare annual wellness exam Neck muscle spasm- Primary Type 2 diabetes mellitus without complications Controlled type 2 diabetes mellitus without complication, without long-term current use of insulin Stage 2 chronic kidney disease- Primary Type 2 diabetes mellitus without complication, without long-term current use of insulin Primary hypertension (CMS/HCC) Unspecified essential hypertension Hyperlipidemia, unspecified hyperlipidemia type (CMS/HCC) 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 ([facility]/HCC) Controlled type 2 diabetes mellitus without complication, without long-term current use of insulin 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 Effusion of left knee Acute pain of left knee 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, without long-term current use of insulin ([facility]) documented in this encounter [facility]* Diagnosis Primary hypertension- Primary Unspecified essential hypertension 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 Controlled type 2 diabetes mellitus without complication, without long-term current use of insulin ([facility]) Encounter for Medicare annual wellness exam Neck muscle spasm- Primary Type 2 diabetes mellitus without complications (HCC) Controlled type 2 diabetes mellitus without complication, without long-term current use of insulin (HCC) Stage 2 chronic kidney disease- Primary Type 2 diabetes mellitus without complication, without long-term current use of insulin (HCC) Primary hypertension Unspecified essential hypertension Hyperlipidemia, unspecified hyperlipidemia type 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 Controlled type 2 diabetes mellitus without complication, without long-term current use of insulin (HCC) Left hip pain- Primary Pain in joint, pelvic region and thigh Effusion of left knee Acute pain of left knee documented in this encounter [facility]* Diagnosis Primary hypertension- Primary Unspecified essential hypertension 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 Controlled type 2 diabetes mellitus without complication, without long-term current use of insulin (HCC) Encounter for Medicare annual wellness exam Neck muscle spasm- Primary Type 2 diabetes mellitus without complications (HCC) Controlled type 2 diabetes mellitus without complication, without long-term current use of insulin (HCC) Stage 2 chronic kidney disease- Primary Type 2 diabetes mellitus without complication, without long-term current use of insulin (HCC) Primary hypertension Unspecified essential hypertension Hyperlipidemia, unspecified hyperlipidemia type 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 Controlled type 2 diabetes mellitus without complication, without long-term current use of insulin (HCC) Left lumbar radiculitis- Primary Left hip pain Pain in joint, pelvic region and thigh documented in this encounter [facility]* Diagnosis Primary hypertension- Primary Unspecified essential hypertension 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 Controlled type 2 diabetes mellitus without complication, without long-term current use of insulin (HCC) Encounter for Medicare annual wellness exam Neck muscle spasm- Primary Type 2 diabetes mellitus without complications (HCC) Controlled type 2 diabetes mellitus without complication, without long-term current use of insulin (HCC) Stage 2 chronic kidney disease- Primary Type 2 diabetes mellitus without complication, without long-term current use of insulin (HCC) Primary hypertension Unspecified essential hypertension Hyperlipidemia, unspecified hyperlipidemia type 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 Controlled type 2 diabetes mellitus without complication, without long-term current use of insulin (HCC) 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 documented in this encounter [facility] Discharge instructions No data available for this section General Surgery [place] Progress note No data available for this section [facility] [place] Reason for referral (narrative)* Diagnostic Procedure Only (Routine) - Authorized Specialty Diagnoses / Procedures Referred By Jemima vyas Referred To Contact MOLECULAR & FUNCTIONAL IMAGING Diagnoses 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) Procedures NM PET/CT SKULL-THIGH SUBSEQUENT PET IMAGING CT ATTENUATION SKULL BASE MID-THIGH Yordan Feliz MD [address] [place] [address] [place] [address] Molecular & Functional Imaging [address] [place] [address] Referral ID Status Reason Start Date Expiration Date Visits Requested Visits Authorized [id number] Authorized Auto-Generat ed Referral 01/28/2023 12/28/2023 1 1 [facility] for referral (narrative)* Diagnostic Procedure Only (Routine) - Closed Specialty Diagnoses / Procedures Referred By Jemima vyas Referred To Contact MOLECULAR & FUNCTIONAL IMAGING Diagnoses 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) Procedures NM PET/CT SKULL-THIGH SUBSEQUENT PET IMAGING CT ATTENUATION SKULL BASE MID-THIGH Yordan Feliz MD [address] [place] [address] [place] [address] Molecular & Functional Imaging [address] [place] [address] Referral ID Status Reason Start Date Expiration Date V isits Requested Visits Authorized [id number] Closed Auto-Generate d Referral 01/28/2023 12/28/2023 1 1 T [facility] for referral (narrative)* Diagnostic Procedure Only (Routine) - Closed Specialty Diagnoses / Procedures Referred By Jemima vyas Referred To Contact MOLECULAR & FUNCTIONAL IMAGING Diagnoses Tongue cancer (HCC) Head and neck cancer (HCC) Procedures NM PET/CT SKULL-THIGH INITIAL PET IMAGING CT ATTENUATION SKULL BASE MID-THIGH Yordan Feliz MD [address] [place] [address] [place] [address] Molecular & Functional Imaging [address] [place] [address] Referral ID Status Reason Start Date Expiration Date V isits Requested Visits Authorized [id number] Closed Auto-Generate d Referral 08/14/2022 09/13/2023 1 1 [facility] Summary Purpose Family History No Family History Records FoundNo Family History Records FoundNo Family History Records FoundNo Family History Records FoundNo Family History Records Found Advance Directives No Advanced Directives Records Found Advance Directive Response Recorded Date/ Time Advance Directives No January 13 1:22pm Reason for Referral Specialty Diagnoses / Procedures Referred By Contcharli vyas Referred To Contact CT IMAGING Diagnoses 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) Mass of right lung Procedures CT CHEST W IVCON DIAGNOSTIC COMPUTED TOMOGRAPHY THORAX W/CONTRAST John England MD [address] [place] [address] [place] [address] [facility] [place] [address] Referral ID Status Reason Start Date Expiration Date Visits Requested Visits Authorized [id number] Authorized Auto-Generat ed Referral 04/18/2024 1 1 Specialty Diagnoses / Procedures Referred By Contac t Referred To Contact CT IMAGING Diagnoses Lung nodules Procedures CT CHEST W IVCON DIAGNOSTIC COMPUTED TOMOGRAPHY THORAX W/CONTRAST John England MD [address] [place] [address] [place] [address] Ct Imaging Referral ID Status Reason Start Date Expiration Date Visits Requested Visits Authorized [id number] Authorized Auto-Generat ed Referral 03/13/2023 03/07/2024 1 1 Specialty Diagnoses / Procedures Referred By Contac t Referred To Contact Diagnoses Tongue cancer (HCC) Procedures CT SIM PLANNING RADIATION ONCOLOGY THER RAD SIMULAJ-AIDED FIELD SETTING COMPLEX Yordan Feliz MD [address] [place] [address] [place] [address] Referral ID Status Reason Start Date Expiration Date Visits Requested Visits Authorized [id number] Pending Review PCP Requested Referral 08/23/2022 11/21/2022 1 1 Specialty Diagnoses / Procedures Referred By Contac t Referred To Contact Dentistry Diagnoses Tongue cancer (HCC) Procedures CONSULT TO DENTISTRY OFFICE[facility] Travis Dave MD [address] [place] [address] [place] [address] Referral ID Status Reason Start Date Expiration Date Visits Requested Visits Authorized [id number] Pending Review PCP Requested Referral 08/15/2022 08/15/2023 1 1 Specialty Diagnoses / Procedures Referred By Contac t Referred To Contact Oncology Diagnoses Head and neck cancer (HCC) Procedures CONSULT TO ONCOLOGY OFFICE/OUTPATIENT [facility] MDM [id number] MINUTES Yordan Feliz MD [address] [place] [address] [place] [address] Referral ID Status Reason Start Date Expiration Date Visits Requested Visits Authorized [id number] Authorized PCP Requested Referral 08/14/2022 08/14/2023 1 1 Specialty Diagnoses / Procedures Referred By Contac t Referred To Contact MOLECULAR & FUNCTIONAL IMAGING Diagnoses Tongue cancer (HCC) Head and neck cancer (HCC) Procedures NM PET/CT SKULL-THIGH INITIAL PET IMAGING CT ATTENUATION SKULL BASE MID-THIGH Yordan Feliz MD [address] [place] [address] [place] [address] Molecular & Functional Imaging [address] [place] [address] Referral ID Status Reason Start Date Expiration Date Visits Requested Visits Authorized [id number] Pending Review Auto-Generat ed Referral 08/14/2022 09/13/2023 [...] team informatio n (unrecognized section and content) Clinical Dental Technician Relationship Specialty Start Date End Date Mannie Nelson MD [address] [place] [address] PCP - General Family Medicine 11/16/11 Clinical Dental Technician Relationship Specialty Start Date End Date Mannie Nelson MD [address] [place] [address] PCP - General Family Medicine 11/16/11 Clinical Dental Technician Relationship Specialty Start Date End Date Mannie Nelson MD [address] [place] [address] PCP - General Family Medicine 11/16/11 Clinical Dental Technician Relationship Specialty Start Date End Date Mannie Nelson MD [address] [place] [address] PCP - General Family Medicine 11/16/11 Clinical Dental Technician Relationship Specialty Start Date End Date Mannie Nelson MD [address] [place] [address] PCP - General Family Medicine 11/16/11 Dee Gil, RD [address] [place] [address] [place] [address] Registered Dietitian Nutrition 08/20/22 Clinical Dental Technician Relationship Specialty Start Date End Date Mannie Nelson MD [address] [place] [address] PCP - General Family Medicine 11/16/11 Dee Gil, KARLOS [address] [facility] [place] [address] Registered Dietitian Nutrition 08/20/22 John England MD [address] [facility] [place] [address] Physician Hematology/Oncology 08/21/22 Natalie Cadena, RECORDER GRAVITY PROSPECTING.INJECTION MOLDING MACHINE SETTER [address] [facility] [place] [address] Nurse Practitioner Hematology/Oncology 08/21/22 Rafael Bob, [place] [address] [facility] [place] [address] Specialty Biometrics Consultant Hematology/Oncology 08/21/22 Yordan Feliz MD [address] [facility] [place] [address] Physician Radiation Oncology 08/21/22 Clinical Dental Technician Relationship Specialty Start Date End Date Mannie Nelson MD [address] [place] [address] PCP - General Family Medicine 11/16/11 Dee Gil, KARLOS [address] [facility] [place] [address] Registered Dietitian Nutrition 08/20/22 John England MD [address] [facility] [place] [address] Physician Hematology/Oncology 08/21/22 Natalie Cadena, RECORDER GRAVITY PROSPECTING.INJECTION MOLDING MACHINE SETTER [address] [facility] [place] [address] Nurse Practitioner Hematology/Oncology 08/21/22 Rafael Bob, [place] [address] [place] [address] [place] [address] Specialty Biometrics Consultant Hematology/Oncology 08/21/22 Yordan Feliz MD [address] [place] [address] [place] [address] Physician Radiation Oncology 08/21/22 Clinical Dental Technician Relationship Specialty Start Date End Date Mannie Nelson MD [address] [place] [address] PCP - General Family Medicine 11/16/[address] [facility] [place] [address] Registered Dietitian Nutrition 08/20/22 John England MD [address] [place] [address] [place] [address] Physician Hematology/Oncology 08/21/22 Natalie Cadena, YENY.[address] [place] [address] Nurse Practitioner Hematology/Oncology 08/21/22 Rafael Bob, [place] [address] [place] [address] [place] [address] Specialty Biometrics Consultant Hematology/Oncology 08/21/22 Yordan Feliz MD [address] [place] [address] [place] [address] Physician Radiation Oncology 08/21/22 Clinical Dental Technician Relationship Specialty Start Date End Date Mannie Nelson MD [address] [place] [address] PCP - General Family Medicine 11/16/11 Dee Gil, KARLOS [address] [facility] [place] [address] Registered Dietitian Nutrition 08/20/22 John England MD [address] [facility] [place] [address] Physician Hematology/Oncology 08/21/22 Natalie Cadena, RECORDER GRAVITY PROSPECTING.INJECTION MOLDING MACHINE SETTER [address] [facility] [place] [address] Nurse Practitioner Hematology/Oncology 08/21/22 Rafael Bob, [place] [address] [facility] [place] [address] Specialty Biometrics Consultant Hematology/Oncology 08/21/22 Yordan Feliz MD [address] [facility] [place] [address] Physician Radiation Oncology 08/21/22 Clinical Dental Technician Relationship Specialty Start Date End Date Mannie Nelson MD [address] [place] [address] PCP - General Family Medicine 11/16/11 Dee Gil, KARLOS [address] [facility] [place] [address] Registered Dietitian Nutrition 08/20/22 John England MD [address] [facility] [place] [address] Physician Hematology/Oncology 08/21/22 Natalie Cadena, RECORDER GRAVITY PROSPECTING.INJECTION MOLDING MACHINE SETTER [address] [facility] [place] [address] Nurse Practitioner Hematology/Oncology 08/21/22 Rafael Bob, [place] [address] [facility] [place] [address] Specialty Biometrics Consultant Hematology/Oncology 08/21/22 Yordan Feliz MD [address] [facility] [place] [address] Physician Radiation Oncology 08/21/22 Clinical Dental Technician Relationship Specialty Start Date End Date Mannie Nelson MD [address] [place] [facility] [address] PCP - General Family Medicine 11/16/[address] [facility] [place] [address] Registered Dietitian Nutrition 08/20/22 John England MD [address] [facility] [place] [address] Physician Hematology/Oncology 08/21/22 Natalie Cadena, RECORDER GRAVITY PROSPECTING.[facility] [address] [facility] [place] [address] Nurse Practitioner Hematology/Oncology 08/21/22 Rafael Bob, RN [address] [facility] [place] [address] Specialty Biometrics Consultant Hematology/Oncology 08/21/22 Yordan Feliz MD [address] [place] [address] [place] [address] Physician Radiation Oncology 08/21/22 Clinical Dental Technician Relationship Specialty Start Date End Date Mannie Nelson MD [address] [place] [facility] [place] [address] PCP - General Family Medicine 11/16/11 Clinical Dental Technician Relationship Specialty Start Date End Date Mannie Nelson MD [address] [place] [address] PCP - General Family Medicine 11/16/11 Dee Gil, KARLOS [address] [facility] [place] [address] Registered Dietitian Nutrition 08/20/22 John England MD [address] [facility] [place] [address] Physician Hematology/Oncology 08/21/22 Natalie Cadena, RECORDER GRAVITY PROSPECTING.INJECTION MOLDING MACHINE SETTER [address] [facility] [place] [address] Nurse Practitioner Hematology/Oncology 08/21/22 Rafael Bob, RN [address] [facility] [place] [address] Specialty Biometrics Consultant Hematology/Oncology 08/21/22 Yordan Feliz MD [address] [facility] [place] [address] Physician Radiation Oncology 08/21/22 Clinical Dental Technician Relationship Specialty Start Date End Date Mannie Nelson MD [address] [place] [address] PCP - General Family Medicine 11/16/11 Dee Gil, KARLOS [address] [facility] [place] [address] Registered Dietitian Nutrition 08/20/22 John England MD [address] [facility] [place] [address] Physician Hematology/Oncology 08/21/22 Natalie Cadena, RECORDER GRAVITY PROSPECTING.INJECTION MOLDING MACHINE SETTER [address] [facility] [place] [address] Nurse Practitioner Hematology/Oncology 08/21/22 Rafael Bob, RN [address] [facility] [place] [address] Specialty Biometrics Consultant Hematology/Oncology 08/21/22 Yordan Feliz MD [address] [facility] [place] [address] Physician Radiation Oncology 08/21/22 Clinical Dental Technician Relationship Specialty Start Date End Date Mannie Nelson MD [address] [place] [facility] [address] PCP - General Family Medicine 11/16/[address] [facility] [place] [address] Registered Dietitian Nutrition 08/20/22 John England MD [address] [facility] [place] [address] Physician Hematology/Oncology 08/21/22 Natalie Cadena APRN.INJECTION MOLDING MACHINE SETTER [address] [facility] [place] [address] Nurse Practitioner Hematology/Oncology 08/21/22 Rafael Bob, [place] [address] [facility] [place] [address] Specialty Biometrics Consultant Hematology/Oncology 08/21/22 Yordan Feliz MD [address] [facility] [place] [address] Physician Radiation Oncology 08/21/22 Clinical Dental Technician Relationship Specialty Start Date End Date Mannie Nelson MD [address] [place] [facility] [address] PCP - General Family Medicine 11/16/[address] [facility] [place] [address] Registered Dietitian Nutrition 08/20/22 John England MD [address] [facility] [place] [address] Physician Hematology/Oncology 08/21/22 Natalie Cadena, RECORDER GRAVITY PROSPECTING.INJECTION MOLDING MACHINE SETTER [address] [facility] [place] [address] Nurse Practitioner Hematology/Oncology 08/21/22 Rafael Bob, RN [address] [facility] [place] [address] Specialty Biometrics Consultant Hematology/Oncology 08/21/22 Yordan Feliz MD [address] [facility] [place] [address] Physician Radiation Oncology 08/21/22 Clinical Dental Technician Relationship Specialty Start Date End Date Mannie Nelson MD [address] [place] [address] PCP - General Family Medicine 11/16/11 Dee Gil, KARLOS [address] [facility] [address] [place], [place] [address] Registered Dietitian Nutrition 08/20/22 John England MD [address] [facility] [place] [address] Physician Hematology/Oncology 08/21/22 Natalie Cadena, RECORDER GRAVITY PROSPECTING.INJECTION MOLDING MACHINE SETTER [address] [facility] [place] [address] Nurse Practitioner Hematology/Oncology 08/21/22 Rafael Bob, [place] [address] [facility] [place] [address] Specialty Biometrics Consultant Hematology/Oncology 08/21/22 Yordan Feliz MD [address] [facility] [place] [address] Physician Radiation Oncology 08/21/22 Marysol Purvis LSW [employer] Bi Consultant 09/07/22 Clinical Dental Technician Relationship Specialty Start Date End Date Mannie Nelson MD [address] [place] [address] PCP - General Family Medicine 11/16/11 Dee Gil, RD [address] [facility] [place] [address] Registered Dietitian Nutrition 08/20/22 John England MD [address] [facility] [place] [address] Physician Hematology/Oncology 08/21/22 Natalie Cadena, RECORDER GRAVITY PROSPECTING.INJECTION MOLDING MACHINE SETTER [address] [facility] [place] [address] Nurse Practitioner Hematology/Oncology 08/21/22 Rafael Bob, [place] [address] [facility] [place] [address] Specialty Biometrics Consultant Hematology/Oncology 08/21/22 Yordan Feliz MD [address] [facility] [place] [address] Physician Radiation Oncology 08/21/22 Marysol Purvis LSW [employer] Bi Consultant 09/07/22 Clinical Dental Technician Relationship Specialty Start Date End Date Mannie Nelson MD [address] [place] [place] [address] PCP - General Family Medicine 11/16/11 Dee Gil, KARLOS [address] [facility] [place] [address] Registered Dietitian Nutrition 08/20/22 John England MD [address] [facility] [place] [address] Physician Hematology/Oncology 08/21/22 Natalie Cadena, RECORDER GRAVITY PROSPECTING.INJECTION MOLDING MACHINE SETTER [address] [facility] [place] [address] Nurse Practitioner Hematology/Oncology 08/21/22 Rafael Bob, RN [address] [facility] [place] [address] Specialty Biometrics Consultant Hematology/Oncology 08/21/22 Yordan Feliz MD [address] [facility] [place] [address] Physician Radiation Oncology 08/21/22 Marysol Purvis LSW [employer] Bi Consultant 09/07/22 Clinical Dental Technician Relationship Specialty Start Date End Date Mannie Nelson MD [address] [place] [address] PCP - General Family Medicine 11/16/11 Dee Gil, KARLOS [address] [facility] [place] [address] Registered Dietitian Nutrition 08/20/22 John England MD [address] [facility] [place] [address] Physician Hematology/Oncology 08/21/22 Natalie Cadena, RECORDER GRAVITY PROSPECTING.[facility] [address] [facility] [place] [address] Nurse Practitioner Hematology/Oncology 08/21/22 Rafael Bob, [place] [address] [facility] [place] [address] Specialty Biometrics Consultant Hematology/Oncology 08/21/22 Yordan Feliz MD [address] [facility] [place] [address] Physician Radiation Oncology 08/21/22 Marysol Purvis LSW [employer] Bi Consultant 09/07/22 Clinical Dental Technician Relationship Specialty Start Date End Date Mannie Nelson MD [address] [place] [address] PCP - General Family Medicine 11/16/11 Dee Gil, KARLOS [address] [facility] [place] [address] Registered Dietitian Nutrition 08/20/22 John England MD [address] [facility] [place] [address] Physician Hematology/Oncology 08/21/22 Natalie Cadena, RECORDER GRAVITY PROSPECTING.INJECTION MOLDING MACHINE SETTER [address] [facility] [place] [address] Nurse Practitioner Hematology/Oncology 08/21/22 Rafael Bob, RN [address] [facility] [place] [address] Specialty Biometrics Consultant Hematology/Oncology 08/21/22 Yordan Feliz MD [address] [facility] [place] [address] Physician Radiation Oncology 08/21/22 Marysol Purvis LSW [employer] Bi Consultant 09/07/22 Clinical Dental Technician Relationship Specialty Start Date End Date Mannie Nelson MD [address] [place] [address] PCP - General Family Medicine 11/16/11 Dee Gil, KARLOS [address] [facility] [place] [address] Registered Dietitian Nutrition 08/20/22 John England MD [address] [facility] [place] [address] Physician Hematology/Oncology 08/21/22 Natalie Cadena, RECORDER GRAVITY PROSPECTING.INJECTION MOLDING MACHINE SETTER [address] [facility] [place] [address] Nurse Practitioner Hematology/Oncology 08/21/22 Rafael Bob, RN [address] [facility] [place] [address] Specialty Biometrics Consultant Hematology/Oncology 08/21/22 Yordan Feliz MD [address] [facility] [place] [address] Physician Radiation Oncology 08/21/22 Marysol Purvis LSW [employer] Bi Consultant 09/07/22 Clinical Dental Technician Relationship Specialty Start Date End Date Mannie Nelson MD [address] [place] [address] PCP - General Family Medicine 11/16/[address] [facility] [place] [address] Registered Dietitian Nutrition 08/20/22 John England MD [address] [place] [address] [place] [address] Physician Hematology/Oncology 08/21/22 Natalie Cadena, RECORDER GRAVITY PROSPECTING.INJECTION MOLDING MACHINE SETTER [address] [facility] [place] [address] Nurse Practitioner Hematology/Oncology 08/21/22 Rafael Bob, [place] [address] [place] [address] [place] [address] Specialty Biometrics Consultant Hematology/Oncology 08/21/22 Yordan Feliz MD [address] [facility] [place] [address] Physician Radiation Oncology 08/21/22 Marysol Purvis LSW [employer] Bi Consultant 09/07/22 Clinical Dental Technician Relationship Specialty Start Date End Date Mannie Nelson MD [address] [place] [facility] [address] PCP - General Family Medicine 11/16/[address] [facility] [place] [address] Registered Dietitian Nutrition 08/20/22 John England MD [address] [facility] [place] [address] Physician Hematology/Oncology 08/21/22 Natalie Cadena, RECORDER GRAVITY PROSPECTING.INJECTION MOLDING MACHINE SETTER [address] [facility] [place] [address] Nurse Practitioner Hematology/Oncology 08/21/22 Rafael Bob, RN [address] [facility] [place] [address] Specialty Biometrics Consultant Hematology/Oncology 08/21/22 Yordan Feliz MD [address] [facility] [place] [address] Physician Radiation Oncology 08/21/22 Marysol Purvis LSW [employer] Bi Consultant 09/07/22 Clinical Dental Technician Relationship Specialty Start Date End Date Mannie Neslon MD [address] [place] [address] PCP - General Family Medicine 11/16/11 Dee Gil, KARLOS [address] [facility] [place] [address] Registered Dietitian Nutrition 08/20/22 John England MD [address] [facility] [place] [address] Physician Hematology/Oncology 08/21/22 Natalie Cadena, RECORDER GRAVITY PROSPECTING.INJECTION MOLDING MACHINE SETTER [address] [facility] [place] [address] Nurse Practitioner Hematology/Oncology 08/21/22 Rafael Bob, RN [address] [facility] [place] [address] Specialty Biometrics Consultant Hematology/Oncology 08/21/22 Yordan Feliz MD [address] [facility] [place] [address] Physician Radiation Oncology 08/21/22 Marysol Purvis LSW [employer] Bi Consultant 09/07/22 Clinical Dental Technician Relationship Specialty Start Date End Date Mannie Nelson MD [address] [place] [address] PCP - General Family Medicine 11/16/11 Dee Gil, KARLOS [address] [facility] [place] [address] Registered Dietitian Nutrition 08/20/22 John England MD [address] [facility] [place] [address] Physician Hematology/Oncology 08/21/22 Natalie Cadena, RECORDER GRAVITY PROSPECTING.INJECTION MOLDING MACHINE SETTER [address] [facility] [place] [address] Nurse Practitioner Hematology/Oncology 08/21/22 Rafael Bob, [place] [address] [facility] [place] [address] Specialty Biometrics Consultant Hematology/Oncology 08/21/22 Yordan Feliz MD [address] [facility] [place] [address] Physician Radiation Oncology 08/21/22 Marysol Purvis LSW [employer] Bi Consultant 09/07/22 Clinical Dental Technician Relationship Specialty Start Date End Date Mannie Nelson MD [address] [place] [address] PCP - General Family Medicine 11/16/[address] [facility] [place] [address] Registered Dietitian Nutrition 08/20/22 John England MD [address] [facility] [address] [place], [place] [address] Physician Hematology/Oncology 08/21/22 Natalie Cadena, RECORDER GRAVITY PROSPECTING.INJECTION MOLDING MACHINE SETTER [address] [facility] [place] [address] Nurse Practitioner Hematology/Oncology 08/21/22 Rafael Bob, RN [address] [facility] [place] [address] Specialty Biometrics Consultant Hematology/Oncology 08/21/22 Yordan Feliz MD [address] [facility] [address] [place], [place] [address] Physician Radiation Oncology 08/21/22 Marysol Purvis LSW [employer] Bi Consultant 09/07/22 Clinical Dental Technician Relationship Specialty Start Date End Date Mannie Nelson MD [address] [place] [address] PCP - General Family Medicine 11/16/11 Dee Gil, KARLOS [address] [facility] [address] [place], [place] [address] Registered Dietitian Nutrition 08/20/22 John England MD [address] [facility] [place] [address] Physician Hematology/Oncology 08/21/22 Natalie Cadena, RECORDER GRAVITY PROSPECTING.INJECTION MOLDING MACHINE SETTER [address] [facility] [place] [address] Nurse Practitioner Hematology/Oncology 08/21/22 Rafael Bob, RN [address] [facility] [place] [address] Specialty Biometrics Consultant Hematology/Oncology 08/21/22 Yordan Feliz MD [address] [facility] [place] [address] Physician Radiation Oncology 08/21/22 Marysol Purvis LSW [employer] Bi Consultant 09/07/22 Clinical Dental Technician Relationship Specialty Start Date End Date Mannie Nelson MD [address] [facility] [address] PCP - General Family Medicine 11/16/11 Dee Gil, KARLOS [address] [facility] [place] [address] Registered Dietitian Nutrition 08/20/22 John England MD [address] [facility] [place] [address] Physician Hematology/Oncology 08/21/22 Natalie Cadena APRN.INJECTION MOLDING MACHINE SETTER [address] [facility] [place] [address] Nurse Practitioner Hematology/Oncology 08/21/22 Rafael Bob, [place] [address] [facility] [place] [address] Specialty Biometrics Consultant Hematology/Oncology 08/21/22 Yordan Feliz MD [address] [facility] [place] [address] Physician Radiation Oncology 08/21/22 Marysol Purvis LSW [employer] Bi Consultant 09/07/22 Clinical Dental Technician Relationship Specialty Start Date End Date Mannie Nelson MD [address] [place] [facility] [address] PCP - General Family Medicine 11/16/11 Dee Gil, KARLOS [address] [facility] [place] [address] Registered Dietitian Nutrition 08/20/22 John England MD [address] [facility] [place] [address] Physician Hematology/Oncology 08/21/22 Natalie Cadena, RECORDER GRAVITY PROSPECTING.[facility] [address] [facility] [place] [address] Nurse Practitioner Hematology/Oncology 08/21/22 Rafael Bob, RN [address] [facility] [place] [address] Specialty Biometrics Consultant Hematology/Oncology 08/21/22 Yordan Feliz MD [address] [facility] [place] [address] Physician Radiation Oncology 08/21/22 Marysol Purvis LSW [employer] Bi Consultant 09/07/22 Clinical Dental Technician Relationship Specialty Start Date End Date Mannie Nelson MD [address] [place] [address] PCP - General Family Medicine 11/16/11 Dee Gil, KARLOS [address] [facility] [place] [address] Registered Dietitian Nutrition 08/20/22 John England MD [address] [facility] [place] [address] Physician Hematology/Oncology 08/21/22 Natalie Cadena, RECORDER GRAVITY PROSPECTING.[facility] [address] [facility] [place] [address] Nurse Practitioner Hematology/Oncology 08/21/22 Rafael Bob, [place] [address] [facility] [place] [address] Specialty Biometrics Consultant Hematology/Oncology 08/21/22 Yordan Feliz MD [address] [facility] [place] [address] Physician Radiation Oncology 08/21/22 Marysol Purvis LSW [employer] Bi Consultant 09/07/22 Clinical Dental Technician Relationship Specialty Start Date End Date Mannie Nelson MD [address] [facility] [address] PCP - General Family Medicine 11/16/11 Dee Gil, KARLOS [address] [facility] [place] [address] Registered Dietitian Nutrition 08/20/22 John England MD [address] [facility] [place] [address] Physician Hematology/Oncology 08/21/22 Natalie Cadena, RECORDER GRAVITY PROSPECTING.INJECTION MOLDING MACHINE SETTER [address] [facility] [place] [address] Nurse Practitioner Hematology/Oncology 08/21/22 Rafael Bob, [place] [address] [facility] [place] [address] Specialty Biometrics Consultant Hematology/Oncology 08/21/22 Yordan Feliz MD [address] [facility] [place] [address] Physician Radiation Oncology 08/21/22 Marysol Purvis LSW [employer] Bi Consultant 09/07/22 Clinical Dental Technician Relationship Specialty Start Date End Date Mannie Nelson MD [address] [place] [place] [address] PCP - General Family Medicine 11/16/[address] [facility] [place] [address] Registered Dietitian Nutrition 08/20/22 John England MD [address] [facility] [place] [address] Physician Hematology/Oncology 08/21/22 Natalie Cadena, RECORDER GRAVITY PROSPECTING.INJECTION MOLDING MACHINE SETTER [address] [place] [address] Nurse Practitioner Hematology/Oncology 08/21/22 Rafael Bob, RN [address] [facility] [place] [address] Specialty Biometrics Consultant Hematology/Oncology 08/21/22 Yordan Feliz MD [address] [place] [address] [place] [address] Physician Radiation Oncology 08/21/22 Marysol Purvis LSW [employer] Bi Consultant 09/07/22 Clinical Dental Technician Relationship Specialty Start Date End Date Mannie Nelson MD [address] [place] [address] PCP - General Family Medicine 11/16/11 Dee Gil, KARLOS [address] [facility] [place] [address] Registered Dietitian Nutrition 08/20/22 John England MD [address] [facility] [place] [address] Physician Hematology/Oncology 08/21/22 Natalie Cadena, RECORDER GRAVITY PROSPECTING.INJECTION MOLDING MACHINE SETTER [address] [facility] [place] [address] Nurse Practitioner Hematology/Oncology 08/21/22 Rafael Bob, [place] [address] [facility] [place] [address] Specialty Biometrics Consultant Hematology/Oncology 08/21/22 Yordan Feliz MD [address] [facility] [place] [address] Physician Radiation Oncology 08/21/22 Marysol Purvis LSW [employer] Bi Consultant 09/07/22 Clinical Dental Technician Relationship Specialty Start Date End Date Mannie Nelson MD [address] [place] [facility] [address] PCP - General Family Medicine 11/16/11 Dee Gil, KARLOS [address] [facility] [place] [address] Registered Dietitian Nutrition 08/20/22 John England MD [address] [facility] [place] [address] Physician Hematology/Oncology 08/21/22 Natalie Cadena, RECORDER GRAVITY PROSPECTING.INJECTION MOLDING MACHINE SETTER [address] [facility] [place] [address] Nurse Practitioner Hematology/Oncology 08/21/22 Rafael Bob, [place] [address] [facility] [place] [address] Specialty Biometrics Consultant Hematology/Oncology 08/21/22 Yordan Feliz MD [address] [facility] [place] [address] Physician Radiation Oncology 08/21/22 Marysol Purvis LSW [employer] Bi Consultant 09/07/22 Clinical Dental Technician Relationship Specialty Start Date End Date Mannie Nelson MD [address] [place] [facility] [address] PCP - General Family Medicine 11/16/11 Dee Gil, KARLOS [address] [facility] [place] [address] Registered Dietitian Nutrition 08/20/22 John England MD [address] [facility] [place] [address] Physician Hematology/Oncology 08/21/22 Natalie Cadena, RECORDER GRAVITY PROSPECTING.INJECTION MOLDING MACHINE SETTER [address] [facility] [place] [address] Nurse Practitioner Hematology/Oncology 08/21/22 Rafael Bob, [place] [address] [facility] [place] [address] Specialty Biometrics Consultant Hematology/Oncology 08/21/22 Yordan Feliz MD [address] [facility] [place] [address] Physician Radiation Oncology 08/21/22 Marysol Purvis LSW [employer] Bi Consultant 09/07/22 Clinical Dental Technician Relationship Specialty Start Date End Date Mannie Nelson MD [address] [place] [address] PCP - General Family Medicine 11/16/[address] [facility] [place] [address] Registered Dietitian Nutrition 08/20/22 Jhon England MD [address] [facility] [place] [address] Physician Hematology/Oncology 08/21/22 Natalie Cadena, YENY.[facility] [address] [facility] [place] [address] Nurse Practitioner Hematology/Oncology 08/21/22 Rafael Bob, [place] [address] [facility] [place] [address] Specialty Biometrics Consultant Hematology/Oncology 08/21/22 Yordan Feliz MD [address] [facility] [place] [address] Physician Radiation Oncology 08/21/22 Marysol Purvis LSW [employer] Bi Consultant 09/07/22 Clinical Dental Technician Relationship Specialty Start Date End Date Mannie Nelson MD [address] [place] [facility] [place] [address] PCP - General Family Medicine 11/16/[address] [facility] [place] [address] Registered Dietitian Nutrition 08/20/22 John England MD [address] [facility] [place] [address] Physician Hematology/Oncology 08/21/22 Natalie Cadena, RECORDER GRAVITY PROSPECTING.INJECTION MOLDING MACHINE SETTER [address] [facility] [place] [address] Nurse Practitioner Hematology/Oncology 08/21/22 Rafael Bob, RN [address] [facility] [place] [address] Specialty Biometrics Consultant Hematology/Oncology 08/21/22 Yordan Feliz MD [address] [facility] [place] [address] Physician Radiation Oncology 08/21/22 Marysol Purvis LSW [employer] Bi Consultant 09/07/22 Clinical Dental Technician Relationship Specialty Start Date End Date Mannie Nelson MD [address] [place] [address] PCP - General Family Medicine 11/16/[address] [facility] [place] [address] Registered Dietitian Nutrition 08/20/22 John England MD [address] [facility] [place] [address] Physician Hematology/Oncology 08/21/22 Natalie Cadena, RECORDER GRAVITY PROSPECTING.INJECTION MOLDING MACHINE SETTER [address] [facility] [place] [address] Nurse Practitioner Hematology/Oncology 08/21/22 Rafael Bob, RN [address] [facility] [address] [place], [place] [address] Specialty Biometrics Consultant Hematology/Oncology 08/21/22 Yordan Feliz MD [address] [place] [address] [place] [address] Physician Radiation Oncology 08/21/22 Marysol Purvis, TECHNICAL EDITOR [employer] Bi Consultant 09/07/22 Clinical Dental Technician Relationship Specialty Start Date End Date Shaikh Drake MD [address] [place] [address] PCP - General Primary Care 02/06/[address] [place] [address] [place] [address] Registered Dietitian Nutrition 08/20/22 John England MD [address] [place] [address] [place] [address] Physician Hematology/Oncology 08/21/22 Natalie Cadena APRN.INJECTION MOLDING MACHINE SETTER [address] [place] [address] [place] [address] Nurse Practitioner Hematology/Oncology 08/21/22 Rafael Bob, [place] [address] [place] [address] [place] [address] Specialty Biometrics Consultant Hematology/Oncology 08/21/22 Yordan Feliz MD [address] [place] [address] [place] [address] Physician Radiation Oncology 08/21/22 Marysol Purvis, TECHNICAL EDITOR [employer] Bi Consultant 09/07/22 Clinical Dental Technician Relationship Specialty Start Date End Date Shaikh Drake MD [address] [place] [address] PCP - General Primary Care 02/06/[address] [facility] [place] [address] Registered Dietitian Nutrition 08/20/22 John England MD [address] [facility] [place] [address] Physician Hematology/Oncology 08/21/22 Natalie Cadena APRN.INJECTION MOLDING MACHINE SETTER [address] [facility] [place] [address] Nurse Practitioner Hematology/Oncology 08/21/22 Rafael Bob, [place] [address] [facility] [place] [address] Specialty Biometrics Consultant Hematology/Oncology 08/21/22 Yordan Feliz MD [address] [place] [address] [place] [address] Physician Radiation Oncology 08/21/22 Marysol Purvis LSW [employer] Bi Consultant 09/07/22 Clinical Dental Technician Relationship Specialty Start Date End Date Shaikh Drake MD [address] [place] [address] PCP - General Primary Care 02/06/[address] [facility] [place] [address] Registered Dietitian Nutrition 08/20/22 John England MD [address] [facility] [place] [address] Physician Hematology/Oncology 08/21/22 Natalie Cadena RECORDER GRAVITY PROSPECTING.INJECTION MOLDING MACHINE SETTER [address] [facility] [place] [address] Nurse Practitioner Hematology/Oncology 08/21/22 Rafael Bob, RN [address] [facility] [place] [address] Specialty Biometrics Consultant Hematology/Oncology 08/21/22 Yordan Feliz MD [address] [facility] [place] [address] Physician Radiation Oncology 08/21/22 Marysol Purvis LSW [employer] Bi Consultant 09/07/22 Clinical Dental Technician Relationship Specialty Start Date End Date Shaikh Drake MD [address] [place] [address] PCP - General Primary Care 02/06/[address] [facility] [place] [address] Registered Dietitian Nutrition 08/20/22 John England MD [address] [facility] [place] [address] Physician Hematology/Oncology 08/21/22 Natalie Cadena, RECORDER GRAVITY PROSPECTING.INJECTION MOLDING MACHINE SETTER [address] [facility] [place] [address] Nurse Practitioner Hematology/Oncology 08/21/22 Rafael Bob, [place] [address] [facility] [place] [address] Specialty Biometrics Consultant Hematology/Oncology 08/21/22 Yordan Feliz MD [address] [place] [address] Physician Radiation Oncology 08/21/22 Marysol Purvis LSW [employer] Bi Consultant 09/07/22 Clinical Dental Technician Relationship Specialty Start Date End Date Shaikh Drake MD [address] [place] [address] PCP - General Primary Care 02/06/[address] [facility] [place] [address] Registered Dietitian Nutrition 08/20/22 John England MD [address] [facility] [place] [address] Physician Hematology/Oncology 08/21/22 Natalie Cadena APRN.INJECTION MOLDING MACHINE SETTER [address] [facility] [place] [address] Nurse Practitioner Hematology/Oncology 08/21/22 Rafael Bob, [place] [address] [facility] [place] [address] Specialty Biometrics Consultant Hematology/Oncology 08/21/22 Yordan Feliz MD [address] [facility] [place] [address] Physician Radiation Oncology 08/21/22 Marysol Purvis LSW [employer] Bi Consultant 09/07/22 Clinical Dental Technician Relationship Specialty Start Date End Date Shaikh Drake MD [address] [place] [address] PCP - General Primary Care 02/06/[address] [place] [address] [place] [address] Registered Dietitian Nutrition 08/20/22 John England MD [address] [place] [address] [place] [address] Physician Hematology/Oncology 08/21/22 Natalie Cadena, RECORDER GRAVITY PROSPECTING.INJECTION MOLDING MACHINE SETTER [address] [place] [address] [place] [address] Nurse Practitioner Hematology/Oncology 08/21/22 Rafael Bob, [place] [address] [facility] [place] [address] Specialty Biometrics Consultant Hematology/Oncology 08/21/22 oYrdan Feliz MD [address] [place] [address] [place] [address] Physician Radiation Oncology 08/21/22 Marysol Purvis LSW [employer] Bi Consultant 09/07/22 Clinical Dental Technician Relationship Specialty Start Date End Date Shaikh Drake MD [address] [place] [address] PCP - General Primary Care 02/06/[address] [place] [address] [place] [address] Registered Dietitian Nutrition 08/20/22 John England MD [address] [place] [address] [place] [address] Physician Hematology/Oncology 08/21/22 Natalie Cadena, RECORDER GRAVITY PROSPECTING.INJECTION MOLDING MACHINE SETTER [address] [place] [address] [place] [address] Nurse Practitioner Hematology/Oncology 08/21/22 Rafael Bob, [place] [address] [facility] [place] [address] Specialty Biometrics Consultant Hematology/Oncology 08/21/22 Yordan Feliz MD [address] [facility] [place] [address] Physician Radiation Oncology 08/21/22 Marysol Purvis LSW [employer] Bi Consultant 09/07/22 Team Status: Active Member Role Status Dates Odell Schmidt DO Primary Care Provider Active Team Status: Inactive Member Role Status Dates Michelle Singh APRN Attending Provider Active Start: January 14, 2024 End: January 14, 2024 Odell Schmidt DO Primary Care Provider Active Start: January 14, 2024 End: January 14, 2024 Clinical Dental Technician Relationship Specialty Start Date End Date Shaikh Drake MD [address] [place] [address] PCP - General Primary Care 02/06/[address] [place] [address] [place] [address] Registered Dietitian Nutrition 08/20/22 John England MD [address] [place] [address] [place] [address] Physician Hematology/Oncology 08/21/22 Natalie Cadena APRN.INJECTION MOLDING MACHINE SETTER [address] [place] [address] [place] [address] Nurse Practitioner Hematology/Oncology 08/21/22 Rafael Bob, [place] [address] [facility] [place] [address] Specialty Biometrics Consultant Hematology/Oncology 08/21/22 Yordan Feliz MD [address] [facility] [place] [address] Physician Radiation Oncology 08/21/22 Marysol Purvis LSW [employer] Bi Consultant 09/07/22 Clinical Dental Technician Relationship Specialty Start Date End Date Mannie Nelson MD [address] [place] [address] PCP - General Family Medicine 11/16/11 02/05/[address] [facility] [address] [place], [facility] Registered Dietitian Nutrition 08/20/22 John England MD [address] [facility] [address] [place], [facility] Physician Hematology/Oncology 08/21/22 Natalie Cadena APRN.INJECTION MOLDING MACHINE SETTER [address] [facility] [place] [address] Nurse Practitioner Hematology/Oncology 08/21/22 Rafael Bob, [place] [address] [facility] [place] [address] Specialty Biometrics Consultant Hematology/Oncology 08/21/22 Yordan Feliz MD [address] [facility] [place] [address] Physician Radiation Oncology 08/21/22 Marysol Purvis LSW [employer] Bi Consultant 09/07/22 Clinical Dental Technician Relationship Specialty Start Date End Date Mannie Nelson MD [address] [place] [facility] [place] [address] PCP - General Family Medicine 11/16/11 02/05/[address] [facility] [place] [address] Registered Dietitian Nutrition 08/20/22 John England MD [address] [facility] [address] Physician Hematology/Oncology 08/21/22 Natalie Cadena, RECORDER GRAVITY PROSPECTING.INJECTION MOLDING MACHINE SETTER [address] [facility] [place] [address] Nurse Practitioner Hematology/Oncology 08/21/22 Rafael Bob, [place] [address] [facility] [place] [address] Specialty Biometrics Consultant Hematology/Oncology 08/21/22 Yordan Feliz MD [address] [facility] [place] [address] Physician Radiation Oncology 08/21/22 Clinical Dental Technician Relationship Specialty Start Date End Date Mannie Nelson MD [address] [place] [address] PCP - General Family Medicine 11/16/11 02/05/[address] [facility] [place] [address] Registered Dietitian Nutrition 08/20/22 John England MD [address] [facility] [place] [address] Physician Hematology/Oncology 08/21/22 Natalie Cadena, RECORDER GRAVITY PROSPECTING.INJECTION MOLDING MACHINE SETTER [address] [facility] [place] [address] Nurse Practitioner Hematology/Oncology 08/21/22 Rafael Bob, [place] [address] [place] [address] [place] [address] Specialty Biometrics Consultant Hematology/Oncology 08/21/22 Yordan Feliz MD [address] [place] [address] [place] [address] Physician Radiation Oncology 08/21/22 Team Status: Inactive Member Role Status Dates Odell Schmidt DO Primary Care Provider Active Start: April 07, 2024 End: April 07, 2024 Michelle Singh APRN Attending Provider Active Start: April 07, 2024 End: April 07, 2024 Clinical Dental Technician Relationship Specialty Start Date End Date Unallocated, Tamanna Thomas MD [address] [place] [address] PCP - General Family Medicine 04/13/24 Clinical Dental Technician Relationship Specialty Start Date End Date Unallocated, [place] [address] [place] [address] PCP - General Family Medicine 04/13/24 Clinical Dental Technician Relationship Specialty Start Date End Date Unallocated, Tamanna Thomas MD [facility] [place] [address] PCP - General Family Medicine 04/13/24 Clinical Dental Technician Relationship Specialty Start Date End Date Shaikh Drake MD [facility] [place] [address] PCP - General Primary Care 02/06/[address] [place] [address] [place] [address] Registered Dietitian Nutrition 08/20/22 John England MD [address] [place] [address] [place] [address] Physician Hematology/Oncology 08/21/22 Natalie Cadena APRN.INJECTION MOLDING MACHINE SETTER [address] [place] [address] [place] [address] Nurse Practitioner Hematology/Oncology 08/21/22 Rafael Bob, [place] [address] [place] [address] [place] [address] Specialty Biometrics Consultant Hematology/Oncology 08/21/22 Yordan Feliz MD [address] [place] [address] [place] [address] Physician Radiation Oncology 08/21/22 Marysol Purvis LSW [employer] Bi Consultant 09/07/22 Clinical Dental Technician Relationship Specialty Start Date End Date Unallocated, Tamanna Thomas MD [address] [place] [address] PCP - General Family Medicine 04/13/24 Clinical Dental Technician Relationship Specialty Start Date End Date Unallocated, Tamanna Thomas MD [address] [place] [address] PCP - General Family Medicine 04/13/24 Clinical Dental Technician Relationship Specialty Start Date End Date Mason Johnson II, MD [address] [facility] [address] [place] [address] PCP - General Internal Medicine 05/06/[address] [place] [address] [place] [address] Registered Dietitian Nutrition 08/20/22 John England MD [address] [place] [address] [place], [place] 8[address]66 Physician Hematology/Oncology 08/21/22 Natalie Cadena, RECORDER GRAVITY PROSPECTING.INJECTION MOLDING MACHINE SETTER [address] [facility] [place] [address] Nurse Practitioner Hematology/Oncology 08/21/22 Rafael Bob, RN [address] [facility] [place] [address] Specialty Biometrics Consultant Hematology/Oncology 08/21/22 Yordan Feliz MD [address] [place] [address] [place] [address] Physician Radiation Oncology 08/21/22 Marysol Purvis LSW [employer] Bi Consultant 09/07/22 Clinical Dental Technician Relationship Specialty Start Date End Date Mason Johnson II, MD [address] [address] PCP - General Internal Medicine 05/06/[address] [place] [address] [place] [address] Registered Dietitian Nutrition 08/20/22 John England MD [address] [place] [address] [place] [address] Physician Hematology/Oncology 08/21/22 Natalie Cadena, RECORDER GRAVITY PROSPECTING.INJECTION MOLDING MACHINE SETTER [address] [place] [address] [place] [address] Nurse Practitioner Hematology/Oncology 08/21/22 Rafael Bob, [place] [address] [facility] [place] [address] Specialty Biometrics Consultant Hematology/Oncology 08/21/22 Yordan Feliz MD [address] [place] [address] [place] [address] Physician Radiation Oncology 08/21/22 Marysol Purvis LSW [employer] Bi Consultant 09/07/22 Clinical Dental Technician Relationship Specialty Start Date End Date Unallocated, Noms MD Martha [address] [place] [address] PCP - General Family Medicine 04/13/24 Clinical Dental Technician Relationship Specialty Start Date End Date Mason Johnson MD [address] [facility] [address] [place] [address] PCP - General Internal Medicine 05/18/24 Clinical Dental Technician Relationship Specialty Start Date End Date Mason Johnson MD [address] [facility] [address] [place] [address] PCP - General Internal Medicine 05/18/24 Clinical Dental Technician Relationship Specialty Start Date End Date Mason Johnson MD [address] [facility] [address] [place] [address] PCP - General Internal Medicine 05/18/24 Clinical Dental Technician Relationship Specialty Start Date End Date Mason Johnson MD [address] [facility] [address] [place] [address] PCP - General Internal Medicine 05/18/24 Clinical Dental Technician Relationship Specialty Start Date End Date Shaikh Drake MD [address] [place] [phone] PCP - General Internal Medicine 11/05/23 Clinical Dental Technician Relationship Specialty Start Date End Date Shaikh Drake MD [address] [place] [phone] PCP - General Internal Medicine 11/05/23 Clinical Dental Technician Relationship Specialty Start Date End Date Mason Johnson MD [address] [place] [address] PCP - General Internal Medicine 05/18/24 Clinical Dental Technician Relationship Specialty Start Date End Date Shaikh Drake MD [address] [place] [phone] PCP - General Internal Medicine 11/05/23 Clinical Dental Technician Relationship Specialty Start Date End Date Shaikh Drake MD [address] [place] [phone] PCP - General Internal Medicine 11/05/23 Clinical Dental Technician Relationship Specialty Start Date End Date Mason Johnson MD [address] [place] [address] PCP - General Internal Medicine 05/18/24 Clinical Dental Technician Relationship Specialty Start Date End Date Mason Johnson MD [address] [place] [address] PCP - General Internal Medicine 05/18/24 Mason Johnson MD [address] [place] [address] PCP - Medical [facility] [place] 07/08/2407/07 Clinical Dental Technician Relationship Specialty Start Date End Date Mason Johnson MD [address] [place] [address] PCP - General Internal Medicine 05/18/24 Mason Johnson MD [address] [place] [address] PCP - Medical [place] 07/08/2407/07 Clinical Dental Technician Relationship Specialty Start Date End Date Mason Johnson MD [address] [place] [address] PCP - General Internal Medicine 05/18/24 Mason Johnson MD [address] [place] [address] PCP - Medical [place] 07/08/2407/07 Clinical Dental Technician Relationship Specialty Start Date End Date Mason Johnson MD [address] [place] [address] PCP - General Internal Medicine 05/18/24 Mason Johnson MD [address] [place] [address] PCP - Medical [place] 07/08/2407/07 Clinical Dental Technician Relationship Specialty Start Date End Date Mason Johnson MD [address] [place] [address] PCP - General Internal Medicine 05/18/24 Mason Johnson MD [address] [place] [address] PCP - Medical [place] 07/08/2407/07 Clinical Dental Technician Relationship Specialty Start Date End Date Mason Johnson MD [address] [place] [address] PCP - General Internal Medicine 05/18/24 Mason Johnson MD [address] [place] [address] PCP - Medical [place] 07/08/2407/07 Clinical Dental Technician Relationship Specialty Start Date End Date Mason Johnson MD [address] [place] [address] PCP - General Internal Medicine 05/18/24 Mason Johnson MD [address] [place] [address] PCP - Medical [place] 07/08/2407/07 Clinical Dental Technician Relationship Specialty Start Date End Date Mason Johnson MD [address] [place] [address] PCP - General Internal Medicine 05/18/24 Mason Johnson MD [address] [place] [address] PCP - Medical [place] 07/08/2407/07 Clinical Dental Technician Relationship Specialty Start Date End Date Mason Johnson MD [address] [place] [address] PCP - General Internal Medicine 05/18/24 Mason Johnson MD [address] [place] [address] PCP - Medical [place] 07/08/2407/07 Clinical Dental Technician Relationship Specialty Start Date End Date Mason Johnson MD [address] [place] [address] PCP - General Internal Medicine 05/18/24 Mason Johnson MD [address] [place] [address] PCP - Medical [facility] [place] 07/08/2407/07 Clinical Dental Technician Relationship Specialty Start Date End Date Mason Johnson II, MD [address] [place] [address] PCP - General Internal Medicine 05/06/[address] [facility] [place] [address] Registered Dietitian Nutrition 08/20/22 John England MD [address] [place] [address] [place] [address] Physician Hematology/Oncology 08/21/22 Natalie Cadena APRN.INJECTION MOLDING MACHINE SETTER [address] [facility] [place] [address] Nurse Practitioner Hematology/Oncology 08/21/22 Rafael Bob, [place] [address] [facility] [place] [address] Specialty Biometrics Consultant Hematology/Oncology 08/21/22 Yordan Feliz MD [address] [facility] [place] [address] Physician Radiation Oncology 08/21/22 Marysol Purvis LSW [employer] Bi Consultant 09/07/22 Clinical Dental Technician Relationship Specialty Start Date End Date Mason Johnson II, MD [address] [place] [address] PCP - General Internal Medicine 05/06/[address] [place] [address] Registered Dietitian Nutrition 08/20/22 John England MD [address] [place] [address] [place] [address] Physician Hematology/Oncology 08/21/22 Natalie Cadena APRN.INJECTION MOLDING MACHINE SETTER [address] [place] [address] Nurse Practitioner Hematology/Oncology 08/21/22 Rafael Bob, [place] [address] [place] [address] Specialty Biometrics Consultant Hematology/Oncology 08/21/22 Yordan Feliz MD [address] [place] [address] [place], [place] [id number] Physician Radiation Oncology 08/21/22 Marysol Purvis LSW [employer] Bi Consultant 09/07/22 Clinical Dental Technician Relationship Specialty Start Date End Date Mason Johnson MD [address] [facility] [address] [place] [address] PCP - General Internal Medicine 05/18/24 Mason Johnson MD [address] [facility] [address] [place] [address] PCP - Medical [place] 07/08/2407/07 Clinical Dental Technician Relationship Specialty Start Date End Date Mason Johnson MD [address] [facility] [address] [place] [address] PCP - General Internal Medicine 05/18/24 Mason Johnson MD [address] [facility] [address] [place] [address] PCP - Medical [place] 07/08/2407/07 Clinical Dental Technician Relationship Specialty Start Date End Date Mason Johnson MD [address] [facility] [address] [place] [address] PCP - General Internal Medicine 05/18/24 Mason Johnson MD [address] [facility] [address] [place] [address] PCP - Medical [place] 07/08/2407/07 Clinical Dental Technician Relationship Specialty Start Date End Date Mason Johnson MD [address] [facility] [address] [place] [address] PCP - General Internal Medicine 05/18/24 Mason Johnson MD [address] [facility] [address] [place] [address] PCP - Medical [place] 07/08/2407/07 (unrecognized sect ion and content) No Status Records FoundNo Status Records FoundNo Status Records FoundNo Status Records FoundNo Status Records Found INFORMATION SOURCE (unrecogn ized section and content) DATE CREATED AUTHOR 07/31/2022 [facility] DATE CREATED AUTHOR AUTHOR'S ORGANIZ ATION 08/04/2022 [facility] DATE CREATED AUTHOR AUTHOR'S ORGANIZ ATION 12/04/2024 [facility] DATE CREATED AUTHOR AUTHOR'S ORGANIZ ATION 12/17/2024 [facility] DATE CREATED AUTHOR AUTHOR'S ORGANIZ ATION 01/22/2025 [facility] EPIC Source Comments (unrecognize d section and content) In the event this informatio n is protected by the Federal Confidentiality of Alcohol and Drug Abuse Patient Records regulations: The Federal rules restrict any use of the information to criminally investigate or prosecute any alcohol or drug abuse patient.[facility] the event this information is protected by the Federal Confidentiality of Alcohol and Drug Abuse Patient Records regulations: The Federal rules restrict any use of the information to criminally investigate or prosecute any alcohol or drug abuse patient.[facility] CenterIn the event this information is protected by the Federal Confidentiality of Alcohol and Drug Abuse Patient Records regulations: The Federal rules restrict any use of the information to criminally investigate or prosecute any alcohol or drug abuse patient.[facility] CenterIn the event this information is protected by the Federal Confidentiality of Alcohol and Drug Abuse Patient Records regulations: The Federal rules restrict any use of the information to criminally investigate or prosecute any alcohol or drug abuse patient.[facility] CenterIn the event this information is protected by the Federal Confidentiality of Alcohol and Drug Abuse Patient Records regulations: The Federal rules restrict any use of the information to criminally investigate or prosecute any alcohol or drug abuse patient.[facility] CenterIn the event this information is protected by the Federal Confidentiality of Alcohol and Drug Abuse Patient Records regulations: The Federal rules restrict any use of the information to criminally investigate or prosecute any alcohol or drug abuse patient.[facility] CenterIn the event this information is protected by the Federal Confidentiality of Alcohol and Drug Abuse Patient Records regulations: The Federal rules restrict any use of the information to criminally investigate or prosecute any alcohol or drug abuse patient.[facility] CenterIn the event this information is protected by the Federal Confidentiality of Alcohol and Drug Abuse Patient Records regulations: The Federal rules restrict any use of the information to criminally investigate or prosecute any alcohol or drug abuse patient.[facility] CenterIn the event this information is protected by the Federal Confidentiality of Alcohol and Drug Abuse Patient Records regulations: The Federal rules restrict any use of the information to criminally investigate or prosecute any alcohol or drug abuse patient.[facility] CenterIn the event this information is protected by the Federal Confidentiality of Alcohol and Drug Abuse Patient Records regulations: The Federal rules restrict any use of the information to criminally investigate or prosecute any alcohol or drug abuse patient.[facility] CenterIn the event this information is protected by the Federal Confidentiality of Alcohol and Drug Abuse Patient Records regulations: The Federal rules restrict any use of the information to criminally investigate or prosecute any alcohol or drug abuse patient.[facility] CenterIn the event this information is protected by the Federal Confidentiality of Alcohol and Drug Abuse Patient Records regulations: The Federal rules restrict any use of the information to criminally investigate or prosecute any alcohol or drug abuse patient.[facility] CenterIn the event this information is protected by the Federal Confidentiality of Alcohol and Drug Abuse Patient Records regulations: The Federal rules restrict any use of the information to criminally investigate or prosecute any alcohol or drug abuse patient.[facility] CenterIn the event this information is protected by the Federal Confidentiality of Alcohol and Drug Abuse Patient Records regulations: The Federal rules restrict any use of the information to criminally investigate or prosecute any alcohol or drug abuse patient.[facility] CenterIn the event this information is protected by the Federal Confidentiality of Alcohol and Drug Abuse Patient Records regulations: The Federal rules restrict any use of the information to criminally investigate or prosecute any alcohol or drug abuse patient.[facility] CenterIn the event this information is protected by the Federal Confidentiality of Alcohol and Drug Abuse Patient Records regulations: The Federal rules restrict any use of the information to criminally investigate or prosecute any alcohol or drug abuse patient.[facility] CenterIn the event this information is protected by the Federal Confidentiality of Alcohol and Drug Abuse Patient Records regulations: The Federal rules restrict any use of the information to criminally investigate or prosecute any alcohol or drug abuse patient.[facility] CenterIn the event this information is protected by the Federal Confidentiality of Alcohol and Drug Abuse Patient Records regulations: The Federal rules restrict any use of the information to criminally investigate or prosecute any alcohol or drug abuse patient.[facility] CenterIn the event this information is protected by the Federal Confidentiality of Alcohol and Drug Abuse Patient Records regulations: The Federal rules restrict any use of the information to criminally investigate or prosecute any alcohol or drug abuse patient.[facility] CenterIn the event this information is protected by the Federal Confidentiality of Alcohol and Drug Abuse Patient Records regulations: The Federal rules restrict any use of the information to criminally investigate or prosecute any alcohol or drug abuse patient.[facility] CenterIn the event this information is protected by the Federal Confidentiality of Alcohol and Drug Abuse Patient Records regulations: The Federal rules restrict any use of the information to criminally investigate or prosecute any alcohol or drug abuse patient.[facility] CenterIn the event this information is protected by the Federal Confidentiality of Alcohol and Drug Abuse Patient Records regulations: The Federal rules restrict any use of the information to criminally investigate or prosecute any alcohol or drug abuse patient.[facility] CenterIn the event this information is protected by the Federal Confidentiality of Alcohol and Drug Abuse Patient Records regulations: The Federal rules restrict any use of the information to criminally investigate or prosecute any alcohol or drug abuse patient.[facility] CenterIn the event this information is protected by the Federal Confidentiality of Alcohol and Drug Abuse Patient Records regulations: The Federal rules restrict any use of the information to criminally investigate or prosecute any alcohol or drug abuse patient.[facility] CenterIn the event this information is protected by the Federal Confidentiality of Alcohol and Drug Abuse Patient Records regulations: The Federal rules restrict any use of the information to criminally investigate or prosecute any alcohol or drug abuse patient.[facility] CenterIn the event this information is protected by the Federal Confidentiality of Alcohol and Drug Abuse Patient Records regulations: The Federal rules restrict any use of the information to criminally investigate or prosecute any alcohol or drug abuse patient.[facility] CenterIn the event this information is protected by the Federal Confidentiality of Alcohol and Drug Abuse Patient Records regulations: The Federal rules restrict any use of the information to criminally investigate or prosecute any alcohol or drug abuse patient.[facility] CenterIn the event this information is protected by the Federal Confidentiality of Alcohol and Drug Abuse Patient Records regulations: The Federal rules restrict any use of the information to criminally investigate or prosecute any alcohol or drug abuse patient.[facility] CenterIn the event this information is protected by the Federal Confidentiality of Alcohol and Drug Abuse Patient Records regulations: The Federal rules restrict any use of the information to criminally investigate or prosecute any alcohol or drug abuse patient.[facility] CenterIn the event this information is protected by the Federal Confidentiality of Alcohol and Drug Abuse Patient Records regulations: The Federal rules restrict any use of the information to criminally investigate or prosecute any alcohol or drug abuse patient.[facility] CenterIn the event this information is protected by the Federal Confidentiality of Alcohol and Drug Abuse Patient Records regulations: The Federal rules restrict any use of the information to criminally investigate or prosecute any alcohol or drug abuse patient.[facility] CenterIn the event this information is protected by the Federal Confidentiality of Alcohol and Drug Abuse Patient Records regulations: The Federal rules restrict any use of the information to criminally investigate or prosecute any alcohol or drug abuse patient.[facility] CenterIn the event this information is protected by the Federal Confidentiality of Alcohol and Drug Abuse Patient Records regulations: The Federal rules restrict any use of the information to criminally investigate or prosecute any alcohol or drug abuse patient.[facility] CenterIn the event this information is protected by the Federal Confidentiality of Alcohol and Drug Abuse Patient Records regulations: The Federal rules restrict any use of the information to criminally investigate or prosecute any alcohol or drug abuse patient.[facility] CenterIn the event this information is protected by the Federal Confidentiality of Alcohol and Drug Abuse Patient Records regulations: The Federal rules restrict any use of the information to criminally investigate or prosecute any alcohol or drug abuse patient.[facility] CenterIn the event this information is protected by the Federal Confidentiality of Alcohol and Drug Abuse Patient Records regulations: The Federal rules restrict any use of the information to criminally investigate or prosecute any alcohol or drug abuse patient.[facility] CenterIn the event this information is protected by the Federal Confidentiality of Alcohol and Drug Abuse Patient Records regulations: The Federal rules restrict any use of the information to criminally investigate or prosecute any alcohol or drug abuse patient.[facility] CenterIn the event this information is protected by the Federal Confidentiality of Alcohol and Drug Abuse Patient Records regulations: The Federal rules restrict any use of the information to criminally investigate or prosecute any alcohol or drug abuse patient.[facility] CenterIn the event this information is protected by the Federal Confidentiality of Alcohol and Drug Abuse Patient Records regulations: The Federal rules restrict any use of the information to criminally investigate or prosecute any alcohol or drug abuse patient.[facility] CenterIn the event this information is protected by the Federal Confidentiality of Alcohol and Drug Abuse Patient Records regulations: The Federal rules restrict any use of the information to criminally investigate or prosecute any alcohol or drug abuse patient.[facility] CenterIn the event this information is protected by the Federal Confidentiality of Alcohol and Drug Abuse Patient Records regulations: The Federal rules restrict any use of the information to criminally investigate or prosecute any alcohol or drug abuse patient.[facility] CenterIn the event this information is protected by the Federal Confidentiality of Alcohol and Drug Abuse Patient Records regulations: The Federal rules restrict any use of the information to criminally investigate or prosecute any alcohol or drug abuse patient.[facility] CenterIn the event this information is protected by the Federal Confidentiality of Alcohol and Drug Abuse Patient Records regulations: The Federal rules restrict any use of the information to criminally investigate or prosecute any alcohol or drug abuse patient.[facility] CenterIn the event this information is protected by the Federal Confidentiality of Alcohol and Drug Abuse Patient Records regulations: The Federal rules restrict any use of the information to criminally investigate or prosecute any alcohol or drug abuse patient.[facility] CenterIn the event this information is protected by the Federal Confidentiality of Alcohol and Drug Abuse Patient Records regulations: The Federal rules restrict any use of the information to criminally investigate or prosecute any alcohol or drug abuse patient.[facility] CenterIn the event this information is protected by the Federal Confidentiality of Alcohol and Drug Abuse Patient Records regulations: The Federal rules restrict any use of the information to criminally investigate or prosecute any alcohol or drug abuse patient.[facility] CenterIn the event this information is protected by the Federal Confidentiality of Alcohol and Drug Abuse Patient Records regulations: The Federal rules restrict any use of the information to criminally investigate or prosecute any alcohol or drug abuse patient.[facility] CenterIn the event this information is protected by the Federal Confidentiality of Alcohol and Drug Abuse Patient Records regulations: The Federal rules restrict any use of the information to criminally investigate or prosecute any alcohol or drug abuse patient.[facility] CenterIn the event this information is protected by the Federal Confidentiality of Alcohol and Drug Abuse Patient Records regulations: The Federal rules restrict any use of the information to criminally investigate or prosecute any alcohol or drug abuse patient.[facility] CenterIn the event this information is protected by the Federal Confidentiality of Alcohol and Drug Abuse Patient Records regulations: The Federal rules restrict any use of the information to criminally investigate or prosecute any alcohol or drug abuse patient.[facility] CenterIn the event this information is protected by the Federal Confidentiality of Alcohol and Drug Abuse Patient Records regulations: The Federal rules restrict any use of the information to criminally investigate or prosecute any alcohol or drug abuse patient.[facility] CenterIn the event this information is protected by the Federal Confidentiality of Alcohol and Drug Abuse Patient Records regulations: The Federal rules restrict any use of the information to criminally investigate or prosecute any alcohol or drug abuse patient.[facility] CenterIn the event this information is protected by the Federal Confidentiality of Alcohol and Drug Abuse Patient Records regulations: The Federal rules restrict any use of the information to criminally investigate or prosecute any alcohol or drug abuse patient.[facility] CenterIn the event this information is protected by the Federal Confidentiality of Alcohol and Drug Abuse Patient Records regulations: The Federal rules restrict any use of the information to criminally investigate or prosecute any alcohol or drug abuse patient.[facility] CenterIn the event this information is protected by the Federal Confidentiality of Alcohol and Drug Abuse Patient Records regulations: The Federal rules restrict any use of the information to criminally investigate or prosecute any alcohol or drug abuse patient.[facility] CenterIn the event this information is protected by the Federal Confidentiality of Alcohol and Drug Abuse Patient Records regulations: The Federal rules restrict any use of the information to criminally investigate or prosecute any alcohol or drug abuse patient.[facility] CenterIn the event this information is protected by the Federal Confidentiality of Alcohol and Drug Abuse Patient Records regulations: The Federal rules restrict any use of the information to criminally investigate or prosecute any alcohol or drug abuse patient.[facility] CenterIn the event this information is protected by the Federal Confidentiality of Alcohol and Drug Abuse Patient Records regulations: The Federal rules restrict any use of the information to criminally investigate or prosecute any alcohol or drug abuse patient.[facility] CenterIn the event this information is protected by the Federal Confidentiality of Alcohol and Drug Abuse Patient Records regulations: The Federal rules restrict any use of the information to criminally investigate or prosecute any alcohol or drug abuse patient.[facility] CenterIn the event this information is protected by the Federal Confidentiality of Alcohol and Drug Abuse Patient Records regulations: The Federal rules restrict any use of the information to criminally investigate or prosecute any alcohol or drug abuse patient.[facility] CenterIn the event this information is protected by the Federal Confidentiality of Alcohol and Drug Abuse Patient Records regulations: The Federal rules restrict any use of the information to criminally investigate or prosecute any alcohol or drug abuse patient.[facility] CenterIn the event this information is protected by the Federal Confidentiality of Alcohol and Drug Abuse Patient Records regulations: The Federal rules restrict any use of the information to criminally investigate or prosecute any alcohol or drug abuse patient.[facility] CenterIn the event this information is protected by the Federal Confidentiality of Alcohol and Drug Abuse Patient Records regulations: The Federal rules restrict any use of the information to criminally investigate or prosecute any alcohol or drug abuse patient.[facility] Reason for Visit (unrecogniz ed section and content) Reason Comments Suspicious Skin Lesion Specialty Diagnoses / Procedures Referred By Contac t Referred To Contact Dermatology Diagnoses Actinic keratosis Procedures [place] OFFICE/OUTPATIENT NEW HIGH MDM 60 MINUTES Mason Johnson MD [address] [facility] [address] [place] [address] Phone: tel: fax: Barry Stevens, RECORDER GRAVITY PROSPECTING-INJECTION MOLDING MACHINE SETTER [address] [facility] [address] [place] [address] Phone: tel: fax: Referral ID Status Reason Start Date Expiration Date V isits Requested Visits Authorized [id number] Closed Specialty Services Required 08/31/2024 02/27/2025 [address] Specialty Diagnoses / Procedures Referred By Contac t Referred To Contact MOLECULAR & FUNCTIONAL IMAGING Diagnoses Tongue cancer (HCC) Head and neck cancer (HCC) Procedures NM PET/CT SKULL-THIGH INITIAL PET IMAGING CT ATTENUATION SKULL BASE MID-THIGH Yordan Feliz MD [address] [place] [address] [place] [address] Molecular & Functional Imaging [address] [place] [address] Referral ID Status Reason Start Date Expiration Date V isits Requested Visits Authorized [id number] Closed Auto-Generate d Referral 08/14/2022 09/13/2023 1 1 Reason Comments Patient Education Reason Comments Consult Specialty Diagnoses / Procedures Referred By Contac t Referred To Contact Radiation Oncology / RADIATION ONCOLOGY Diagnoses Dr. 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 Images requested. 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) John England MD [address] [place] [address] [place] [address] Sebastien Treat Jose [address] [place] [address] Referral ID Status Reason Start Date Expiration Date V isits Requested Visits Authorized [id number] Authorized 08/21/2022 11/19/2022 99 99 Reason Comments [...] Cancer Specialty Diagnoses / Procedures [facility] To Contact Radiation Oncology / RADIATION ONCOLOGY Diagnoses 4 Week Follow Up Patient wanted to coordinate appt with Med Onc Procedures EST POST 90 DAY RAD TX Yordan Feliz MD [address] [place] [address] [place] [address] Yordan Feliz MD [address] [place] [address] [place] [address] Referral ID Status Reason Start Date Expiration Date V isits Requested Visits Authorized [id number] Authorized 11/27/2022 07/07/2023 99 99 Reason Comments Cancer of the base of tongue Reason Comments Head and Neck Cancer Reason Comments Cancer of the base of tongue 1 month fol low up Reason Comments Care Coordination Results Reason Comments 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) Reason Comments Radiology CT Specialty Diagnoses / Procedures Referred By Contac t Referred To Contact CT IMAGING Diagnoses Lung nodules 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) Procedures CT CHEST W IVCON DIAGNOSTIC COMPUTED TOMOGRAPHY THORAX W/CONTRAST John England MD [address] [place] [address] [place] [address] [place] [address] Referral ID Status Reason Start Date Expiration Date V isits Requested Visits Authorized [id number] Closed Auto-Generate d Referral 10/19/2023 07/18/2024 1 1 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) Mass of right lung Procedures CT CHEST W IVCON DIAGNOSTIC COMPUTED TOMOGRAPHY THORAX W/CONTRAST John England MD [address] [place] [address] [place] [address] [place] [address] Referral ID Status Reason Start Date Expiration Date V isits Requested Visits Authorized [id number] Closed Auto-Generate d Referral 06/19/2023 04/18/2024 1 1 Specialty Diagnoses / Procedures Referred By Contac t Referred To Contact CT IMAGING Diagnoses Lung nodules Procedures CT CHEST W IVCON DIAGNOSTIC COMPUTED TOMOGRAPHY THORAX W/CONTRAST John England MD [address] [place] [address] [place] [address] [place] [address] Referral ID Status Reason Start Date Expiration Date V isits Requested Visits Authorized [id number] Closed Auto-Generate d Referral 03/13/2023 03/07/2024 1 1 Reason Comments Radiology NM Specialty Diagnoses / Procedures Referred By Contac t Referred To Contact MOLECULAR & FUNCTIONAL IMAGING Diagnoses 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 Procedures CT CHEST W IVCON DIAGNOSTIC COMPUTED TOMOGRAPHY THORAX W/CONTRAST John England MD [address] [place] [address] [place] [address] [place] [address] Referral ID Status Reason Start Date Expiration Date V isits Requested Visits Authorized [id number] Closed Auto-Generate d Referral 04/23/2024 11/21/2024 1 1 Reason Comments Establish Care Previous pcp dr corey adSees oncology twice yearly [facility] Diabetes Hypertension Reason Comments Cancer of [...] Comments Medicare Annual Wellness Visit Subsequen t Reason Comments Neck Pain Hip Pain Urinary Incontinence Bleeding/Bruising Reason Comments Cancer 3 month check Reason Comments Results xrays Follow-up Neck/hip pain and os teoarthritis Reason Comments Cancer of base of tongue 6 month follow up Reason Comments Diabetes Follow-up Knee and hip pain--l eft hip pt states he is not sure its OA as discussed would like to discuss Reason Comments Results Knee xray, lab resul ts Joint Pain Reason Comments Hip Pain Results Lspine xray Reason Comments Cancer 3 month check Goals (unrecognized section and content) Goals may [...] BE BASED ON THE PRIMARY CLINICAL RECORDS. [facility]. provides no warranty or guarantee of the accuracy or completeness of information in this document.
== END 2025-03-12 09:51 | disposition home or self-care (01) ==
LOC: MRI 09:50
PROVIDERS: PCP Internal Medicine; Visit Provider Internal Medicine
DX: M16.12 Unilateral primary osteoarthritis, left hip (principal); M54.16 Radiculopathy, lumbar region; M25.552 Pain in left hip; M94.252 Chondromalacia, left hip
CPT/HCPCS: 73721

== ENCOUNTER 2025-04-29 11:54 | Outpatient (OUT) | payer MEDICARE, SELFPAY ==
--- OUTSIDE RECORDS SUMMARY | 2025-04-20 08:00 | XMS_ITS | Encounter Summary ---
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) Social History Tobacco UseTypesPacks/DayYears UsedDateSmoking Tobacco: NeverPassive Smoke Exposure: NeverSmokeless Tobacco: NeverAlcohol UseStandard Drinks/WeekComments Yes7 (1 standard drink = 0.6 oz pure alcohol)caffeine intake: 1-2 cups per day Humiliation, Afraid, Rape, and Kick questionnaireAnswerDate RecordedWithin the last year, have you been afraid of your partner or ex-partner?No06/10/2023Within the last year, have you been humiliated or emotionally abused in other ways by your partner or ex-partner?No06/10/2023Within the last year, have you been kicked, hit, slapped, or otherwise physically hurt by your partner or ex-partner?No06/10/2023Within the last year, have you been raped or forced to have any kind of sexual activity by your partner or ex-partner?No06/10/2023 Social Connection and Isolation PanelAnswerDate RecordedIn a typical week, how many times do you talk on the phone with family, friends, or neighbors?Three times a week06/10/2023How often do you get together with friends or relatives? Three times a week06/10/2023How often do you attend taoism or worship services?Never06/10/2023o you belong to any clubs or organizations such as taoism groups, unions, fraternal or athletic groups, or school groups?No 06/10/2023How often do you attend meetings of the clubs or organizations you belong to?Never06/10/2023re you , , , , never , or living with a partner?Irakjew8306/10/2023UDIT-CAnswerDate RecordedQ1: How often do you have a drink containing alcohol?4 or more times a week 07/29/2023verage Number of DrinksNot on file07/29/2023Frequency of Binge DrinkingNot on file07/29/2023Overall Financial Resource Strain (CARDIA)Answer Date RecordedHow hard is it for you to pay for the very basics like food, housing, medical care, and heating?Very hard06/10/2023HQ-2AnswerDate Recorded Patient Health Questionnaire-2 Csnat818[facility] [place] of Occupational Health - Occupational Stress QuestionnaireAnswerDate RecordedDo you feel stress - tense, restless, nervous, or anxious, or unable to sleep at night because your mind is troubled all the time - these days?Not at all06/10/2023Exercise Vital SignAnswerDate RecordedOn average, how many days per week do you engage in moderate to strenuous exercise (like a brisk walk)?7 days06/10/2023On average, how many minutes do you engage in exercise at this level?30 min06/10/2023Hunger Vital SignAnswerDate RecordedWithin the past 12 months, you worried that your food would run out before you got the money to buymore.Never true06/10/2023 Within the past 12 months, the food you bought just didn't last and you didn't have money to get more.Never true06/10/2023RAPARE - TransportationAnswerDate RecordedIn the past 12 months, has lack of transportation kept you from medical appointments or from getting medications?No06/10/2023In the past 12 months, has lack of transportation kept you from meetings, work, or from getting things needed for daily living?No06/10/2023Housing Stability Vital SignAnswerDate RecordedIn the last 12 months, was there a time when you were not able to pay the mortgage or rent on time?No06/10/2023Number of Places Lived in the Last Year Not on file06/10/2023In the last 12 months, was there a time when you did not have a steady place to sleep or slept in ashelter (including now)?No06/10/2023 Sex and Gender InformationValueDate RecordedSex Assigned at BirthNot on file Legal EaoAdqx5309/19/2022 7:58 PM EDTGender IdentityNot on fileSexual Orientation Not on filedocumented as of this encounter Last Filed Vital Signs Vital SignReadingTime TakenCommentsBlood Bgjicngt388/9304/20/2025 8:00 AM EDT Xchub316104/20/2025 8:00 AM EDTTemperature--Respiratory Rate--Oxygen Saturation-- Inhaled Oxygen Concentration--Soeuhm62.7 kg (200 lb)04/20/2025 8:00 AM EDTHeight 170.2 cm (5' 7 )04/20/2025 8:00 AM EDTBody Mass Index31.321 8:00 AM EDT documented in this encounter Progress Notes * Leela Schwartz MD - 04/20/2025 8:00 AM EDT Subjective Patient ID: Manish Root is a 79 y.o. 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, without long-term current use of insulin (HCC) 01/15/2023 GERD (gastroesophageal reflux disease) 01/15/2023 History of DC (myocardial infarction) 01/15/2023 HTN (hypertension) 01/15/2023 OJEDA [...] 10/26/2024 Primary osteoarthritis of left hip 10/26/2024 Pseudogout involving multiple joints 03/26/2025 Resolved Ambulatory Problems Diagnosis Date Noted Overweight [...] Sinusitis Thyromegaly Type 2 diabetes mellitus (HCC) Surgical History[2] Allergies[3] Medications Ordered Prior to Encounter[4] Objective Last Recorded Vitals Vitals: 04/20/25 0800 BP: (!) 125/93 Pulse: 74 ENT Physical Exam Constitutional Appearance: patient appears well-developed and well-nourished, Oral Cavity/Oropharynx OC/OP comments: OC/OP/IDL - no mass or ulcer Neck Neck comments: Supple, FROM, No LAD Assessment/Plan Diagnoses and all orders for this visit: Cancer of base of tongue (HCC) ANAHY today. Quarterly appts till 07/2026 [1] Family History Adopted: Yes Problem Relation Name Age of Onset No Known Problems Mother No Known Problems Father [2] Past Surgical History: Procedure Laterality Date CARDIAC CATHETERIZATION 2001 with stent placement CATARACT EXTRACTION COLECTOMY 02/2000 sigmoid colectomy with colostomy COLONOSCOPY LARYNGOSCOPY 07/31/2022 with biopsyLana [3] Allergies Allergen Reactions Statins GI intolerance [4] Current Outpatient Medications on File Prior to [...] by mouth 1 (one) time each day atthe same time fenofibrate micronized (Lofibra) 134 MG capsule Take 1 capsule (134 mg) by mouth Daily (Patient taking differently: Take 134 mg by mouth Daily) 100 capsule 3 latanoprost (Xalatan) 0.005 % ophthalmic solution Administer 1 drop into both eyes Daily metFORMIN (Glucophage) 500 MG tablet Take 1 tablet (500 mg) by mouth Daily (Patient taking differently: Take 500 mg by mouth Daily) 100 tablet 3 methylPREDNISolone (Medrol Dospak) 4 MG tablets Follow schedule on package instructions 21 tablet 0 metoprolol succinate XL (Toprol-XL) 25 MG 24 hr tablet Take 1 tablet (25 mg) by mouth Daily Do not crush or chew. (Patient taking differently: Take 25 mg by mouth Daily Do not crush or chew.) 90 tablet 3 traMADol (Ultram) 50 MG tablet Take 2 tablets (100 mg) by mouth every 8 (eight) hours if needed forsevere pain 40 tablet 1 No current facility-administered medications on file prior to visit. documented in this encounter Plan of Treatment DateTypeDepartmentCare Team (Latest Contact Info)Ylxjgvmalpa63/24/2025 11:45 AM EDTOffice Visit [facility] [place] [facility] [address] [place] [address] [place] [address] Mason Johnson MD [address] [place] [address] [place] [address] 05/03/2025 1:00 PM EDTOffice Visit [facility] [place] [facility] [address] [place] [phone] Michael Murray, MEDICAL EQUIPMENT REPAIR TECHNICIAN [address] [place] [address] 05/25/2025 9:20 AM ESTOffice Visit [facility] [place] [facility] [address] [place] [place] [phone] Mayte Stevens APRN-FINNISH RUBBER [address] [place] [address] [place] [address] 06/16/2025 1:00 PM ESTOffice Visit [facility] [place] [facility] [address] [place] [address] [place] [phone] Jr. Fam Boyer DO [address] [place] [address] [place] [address] 07/20/2025 8:30 AM ESTOffice Visit [facility] [place] [facility] [address] [place] [address] [place] [address] Leela Schwartz MD [address] [place] [address] [place] [address] documented as of this encounter Visit Diagnoses Diagnosis 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 documented in this encounter Additional Health Concerns AssessmentNoted TimePHQ-9 Depression Total Score: 5:03 PM EST documented as of this encounter Care Teams Team MemberRelationshipSpecialtyStart DateEnd Date Mason Johnson MD [address] [facility] [address] [place] [address] [facility] Gfwpwqqv67/11/24 Mason Johnson MD [address] [facility] [address] [place] [address] PCP - Medical [facility])[3]07/08/2511documented as of this encounter
--- OUTSIDE RECORDS SUMMARY | 2025-04-28 09:00 | XMS_ITS | Encounter Summary ---
Author Organization [facility] Address [address] [place] [address] Care Team Providers Care Home Appliance Washing Machine Mechanic Name Role Phone Mason Johnson MD Primary Care Provider [phone] Mason Johnson MD Unavailable [phone] Reason for Visit * ReasonCommentsFollow-up Encounter Details DateTypeDepartmentCare Team (Latest Contact Info)Xbgckwgszhd16/22/2025 9:00 AM EDTOffice Visit [facility] [address] [facility] [address] [place] [address] [place] [phone] Jr. Fam Boyer, DO [address] [place] [address] [place] [address] Primary osteoarthritis of left hip (Primary Dx); Pre-op evaluation Social History Tobacco UseTypesPacks/DayYears UsedDateSmoking Tobacco: NeverPassive [...] times a week06/10/2023How often do you attend restoration or mormonism services?Never06/10/2023o you belong to any clubs or organizations such as restoration groups, unions, fraternal or athletic groups, or school groups?No 06/10/2023How often do you attend meetings of the clubs or organizations you belong to?Never06/10/2023re you , , , , never , or living with a partner?Xccqhex2406/10/2023UDIT-CAnswerDate RecordedQ1: How often do you have a drink containing alcohol?4 or more times a week 07/29/2023verage Number of DrinksNot on file07/29/2023Frequency of Binge DrinkingNot on file07/29/2023Overall Financial Resource Strain (CARDIA)Answer Date RecordedHow hard is it for you to pay for the very basics like food, housing, medical care, and heating?Very hard06/10/2023HQ-2AnswerDate Recorded Patient Health Questionnaire-2 Jvutl917[facility] [place] of Occupational Health - Occupational Stress QuestionnaireAnswerDate [...] RecordedSex Assigned at BirthNot on file Legal XslSzgx1009/19/2022 7:58 PM EDTGender IdentityNot on fileSexual Orientation Not on filedocumented as of this encounter Plan of Treatment DateTypeDepartmentCare Team (Latest Contact Info)Mxsxyaeejqb97/24/2025 11:45 AM EDTOffice Visit [facility] [place] [facility] [address] [facility] [address] [place] [phone] Mason Johnson MD [address] [facility] [address] [place] [address] 05/03/2025 1:00 PM EDTOffice Visit [facility] [place] [facility] [address] [place] [address] Michael Murray NP [address] [place], [place] [phone] 05/25/2025 9:20 AM ESTOffice Visit [facility] [address] [facility] [address] [place] [address] Mayte Stevens, CUSTOMER EXPERIENCE STRATEGIST-LASTER HAND [address] [place] [address] [place] [address] 06/16/2025 1:00 PM ESTOffice Visit [facility] [address] [place] [address] [place] [phone] Jr. Fam Boyer, [address] [place] [address] [place] [address] 07/20/2025 8:30 AM ESTOffice Visit [facility] [address] [place] [address] [place] [phone] Leela Schwartz MD [address] [place] [address] [place] [address] NameTypePriorityAssociated DiagnosesOrder ScheduleAPTTLabRoutine Primary osteoarthritis of left hip Pre-op evaluation Expected: 04/28/2025, Expires: 04/28/2026BC and differentialLabRoutine Primary osteoarthritis of left hip Pre-op evaluation Expected: 04/28/2025 (Approximate), Expires: 04/28/2026omprehensive metabolic panelLabRoutine Primary osteoarthritis of left hip Pre-op evaluation Expected: 04/28/2025 (Approximate), Expires: 04/28/2026Protime-INRLabRoutine Primary osteoarthritis of left hip Pre-op evaluation Expected: 04/28/2025 (Approximate), Expires: 04/28/2026ECG 12 leadECGRoutine Primary osteoarthritis of left hip Pre-op evaluation Expected: 04/28/2025 (Approximate), Expires: 04/28/2026Urine cultureMicrobiology Routine Primary osteoarthritis of left hip Pre-op evaluation Expected: 04/28/2025 (Approximate), Expires: 04/28/2026Urinalysis with reflex microscopicLabRoutine Primary osteoarthritis of left hip Pre-op evaluation Expected: 04/28/2025 (Approximate), Expires: 04/28/2026XR hip left 2 or 3 views ImagingRoutine Primary osteoarthritis of left hip Pre-op evaluation Expected: 04/28/2025, Expires: 04/28/2026documented as of this encounter Visit Diagnoses Diagnosis Primary osteoarthritis of left hip- Primary Pre-op evaluation documented in this encounter Additional Health Concerns AssessmentNoted TimePHQ-9 Depression Total Score: 5:03 PM EST documented as of this encounter Care Teams Team MemberRelationshipSpecialtyStart DateEnd Date Mason Johnson MD [address] [facility] [address] [place] [address] PCP - GeneralInternal Jnnjnaan64/11/24 Mason Johnson MD [address] [facility] [address] [place] [address] PCP - Medical [place]07/08/2511documented as of this encounter
--- OUTSIDE RECORDS SUMMARY | 2025-04-29 09:12 | XMS_ITS | Encounter Summary ---
Author Organization [facility] Address [address] [place], [place] [id number] Care Team Providers Care Sample Weaver Name Role Phone Dee Tirado KARLOS Unavailable [phone] John Valladares MD Unavailable [phone] Natalie Cadena APRN.DECISION SCIENCE ANALYST Unavailable [phone] Yordan Randolph MD Unavailable [phone] Marysol Purvis NEUROLOGY SPECIALIST Unavailable Unavailable Alex OLIVAS MD, Mason Regan Primary Care Provider [phone] Source Comments In the event this information is protected by the Federal Confidentiality of Alcohol and Drug AbusePatient Records regulations: The Federal rules restrict any use of the information to criminally investigate or prosecute any alcohol or drug abuse patient.[facility] Reason for Referral * MRI/CT (Routine) - ClosedSpecialtyDiagnoses / ProceduresReferred By Contact Referred To ContactCT IMAGING Diagnoses 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 Stage 3 chronic kidney disease, unspecified whether stage 3a or 3b CKD (HCC) Procedures CT CHEST W IVCON DIAGNOSTIC COMPUTED TOMOGRAPHY THORAX W/CONTRAST John Valladares MD [address] [place] [address] [place] [address] Phone: tel: fax: [place] [address] Referral IDStatusReasonStart DateExpiration DateVisits RequestedVisits [id number] Auto-Generated Referral * MRI/CT (Routine) - ClosedSpecialtyDiagnoses / ProceduresReferred By Contact Referred To ContactCT IMAGING Diagnoses 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 Stage 3 chronic kidney disease, unspecified whether stage 3a or 3b CKD (HCC) Procedures CT NECK SOFT TISSUE W IVCON CT SOFT TISSUE NECK W/CONTRAST MATERIAL John Valladares MD [address] [place] [address] Phone: tel: fax: [place] [address] Referral IDStatusReasonStart DateExpiration DateVisits RequestedVisits [id number] Auto-Generated Referral Reason for Visit * ReasonCommentsRadiology CT * MRI/CT (Routine) - ClosedSpecialtyDiagnoses / ProceduresReferred By Contact Referred To ContactCT IMAGING Diagnoses 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 Stage 3 chronic kidney disease, unspecified whether stage 3a or 3b CKD (HCC) Procedures CT NECK SOFT TISSUE W IVCON CT SOFT TISSUE NECK W/CONTRAST MATERIAL John Valladares MD [address] [place] [address] Phone: tel: fax: [place] [address] Referral IDStatusReasonStart DateExpiration DateVisits RequestedVisits [id number] Auto-Generated Referral Encounter Details DateTypeDepartmentCare Team (Latest Contact Info)Mecoiknaouo21/23/2025 9:12 AM EDTHospital Encounter Radiology Pet CT [address] [place] [address] 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 Last address used for [address] Sex and Gender InformationValueDate Recorded Sex Assigned at BirthNot on fileLegal VpuGdxo23/02/2012 10:15 AM ESTGender IdentityNot on fileSexual OrientationNot on filedocumented as of this encounter Functional Status * Are you deaf or do you have serious difficulty hearing?AnswerDate of KhdzriiyakFzyfrhXa33/23/2014 11:20 AM Jasmyn Anthony * Are you blind or do you have serious difficulty seeing, even when wearing glasses?AnswerDate of BkdaegabjaNelztvDj86/23/2014 11:20 AM Jasmyn Anthony * Do you have serious difficulty walking or climbing stairs?AnswerDate of BfrzupgtulLjmhqyCc54/23/2014 11:20 AM Jasmyn Anthony * Do you have difficulty dressing or bathing?AnswerDate of AssessmentAuthorNo 04/29/2014 11:20 AM Jasmyn Anthony * Because of a physical, mental, or emotional condition, do you have difficulty doing errands alone such as visiting a doctor's office or shopping?AnswerDate of QtrvrgblgeFwnjknRv00/23/2014 11:20 AM Jasmyn Anthony documented as of this encounter Mental Status * Because of a physical, mental, or emotional condition, do you have serious difficulty concentrating, remembering, or making decisions?AnswerEntry Date VqjlcvGy41/23/2014 11:20 AM Jasmyn Anthony documented in this encounter Progress Notes * Cecilia Zurita, RT(R) - 04/29/2025 9:15 AM EDT Radiology Service Progress Note PATIENT NAME: Manish Root DATE OF SERVICE: April 29, 2025 TIME: 10:02 AM PATIENT IDENTITY VERIFICATION COMPLETED USING TWO (2) IDENTIFIERS: Name and Date of confirmedby patient verbally. FALL SCREENING: Has the patient had 2 falls in the last year or 1 fall with injury or currently using an Ambulatory Assistive Device (Walker, Cane, Wheelchair, Crutches, etc.)? No PATIENT GENDER DATA: Assigned male at PATIENT RELEVANT IMPLANT DATA REVIEWED: Not Applicable PATIENT PRESENTS WITH AN IMPLANTABLE OR ATTACHED ROASTER HELPER: No RADIOLOGY DEPARTMENT: CT; Exam(s) Completed: Chest and Neck . Anesthesia: No PERIPHERAL IV DATA: Site assessment: Clean,Dry and Intact, Site disposition Discontinued SIGNED BY: RT Perlita(R) April 29, 2025 10:02 AM * Maggie Walton RN - 04/29/2025 9:15 AM EDT Radiology Service Progress Note DATE OF SERVICE: April 29, 2025 TIME: 10:09 AM PATIENT WEIGHT: 192LBS PATIENT IDENTITY VERIFICATION COMPLETED USING TWO (2) [...] CREATININE: Creatinine Date Value Ref Range Status 04/29/2025 1.07 0.73 - 1.22 mg/dL Final 10/28/2024 1.04 0.73 - 1.22 mg/dL Final 04/23/2024 1.32 (H) 0.73 - 1.22 mg/dL Final Estimated Glomerular Filtration Rate Date Value Ref Range Status 04/29/2025 70 >=60 mL/min/1.73m Final Comment: Estimated Glomerular Filtration [...] RESULTS: POC done: Yes, See Lab Tab April 29, 2025 TREATMENT: N/A IV SITE: Ambulatory: A peripheral IV was started in the Right antecubital site with a Angio cath: 20 gauge. IV SITE APPEARANCE: Clean,Dry and Intact SIGNATURE: Maggie Walton RN PATIENT NAME: Manish Root DATE: April 29, 2025 TIME: 10:09 AM documented in this encounter Plan of Treatment DateTypeDepartmentCare Team (Latest Contact Info)Dztcqypzktz88/30/2025 10:00 AM EDTVisit (SP) Office Hematology/Oncology [address] [place] [address] [place] [address] John Valladares MD [address] [place] [address] [place] [address] 6 MONTH FOLLOW UP AFTER CT SCAN05/06/2025 10:30 AM EDTOffice Visit Radiation Oncology [address] [place] [address] [place] [address] Yordan Randolph MD [address] [place] [address] [place] [address] 3 month follow upNameTypePriorityAssociated DiagnosesDate/TimeCT CHEST W IVCON RadiologyRoutine 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 Stage 3 chronic kidney disease, unspecified whether stage 3a or 3b CKD (HCC) 04/29/2025 10:27 AM EDTTHYROID STIMULATING HORMONELabRoutine Other specified disorders of thyroid 04/29/2025 9:13 AM EDTNameTypePriorityAssociated DiagnosesOrder ScheduleCT CHEST W IVCONRadiologyRoutine 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 Stage 3 chronic kidney disease, unspecified whether stage 3a or 3b CKD (HCC) 1 Occurrences starting 04/29/2025 until 04/29/2025THYROID STIMULATING HORMONELab Routine Other specified disorders of thyroid 1 Occurrences starting 04/29/2025 until 04/29/2025documented as of this encounter Procedures Procedure NamePriorityDate/TimeAssociated DiagnosisCommentsCT NECK SOFT TISSUE W OEDAHVgfdycx88/23/2025 10:27 AM EDT 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 Stage 3 chronic kidney disease, unspecified whether stage 3a or 3b CKD (HCC) COMPREHENSIVE METABOLIC ZKWXXDmcftby33/23/2025 9:13 AM EDT 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 Stage 3 chronic kidney disease, unspecified whether stage 3a or 3b CKD (HCC) CBC + DJRZXcqtiaw74/23/2025 9:13 AM EDT 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 No significant other enhancing lesion suggest recurrent or residual disease. * ??No enlarged lymph node in the neck, by CT size criteria. Transcribe Date/Time: Apr 29 2025 11:07A Dictated by: SADIQ MAYORGA MD This examination was interpreted and the report reviewed and electronically signed by: SADIQ MAYORGA MD on Apr 29 2025 11:21AM ??EST Thank you for allowing us to participate in the care of your patient. Should there be any questions regarding this interpretation, please call [phone]. If you are unable to reach us at the number above, please feel free to contact [facility] at [phone]. Narrative 04/29/2025 11:23 AM EDT * * *Final Report* * * DATE OF EXAM: Apr 29 2025 10:27AM ?? [facility] ?? 0013 ??- ??CT NECK SOFT TISSUE W IVCON ??/ PROCEDURE REASON: multiple diagnoses ? * * * * Physician Interpretation * * * * RESULT: CT NECK SOFT TISSUE W IVCON CLINICAL HISTORY: Base of tongue cancer. Additional possible history of colon cancer. TECHNIQUE: ??A series of contiguous helical scans were performed from the skull base to the aortic arch with intravenous contrast. ??Supplemental: N/A Contrast: ??Omnipaque 300. Contrast Dose: ??100 cc Route of Administration: ??IV CT Radiation dose: Integrated Dose-length product (DLP) for this visit = ?? 875 mGy*cm. CT Dose Reduction Employed: Automated exposure control(AEC) and iterative recon COMPARISON: CT neck 10/28/2024. PET/CT 01/29/2023 RESULT: Localizer images: No additional findings. Postoperative/Treatment Change/aerodigestive tract: Streak artifacts from dental amalgam limit evaluation of the adjacent structures. Unchanged asymmetric left tongue base and vallecula at site of previously enhancing lesion. ??No discrete nodular enhancement to suggest recurrent or worsening disease. Stable posttreatment/postradiation changes including mucosal/submucosal edema and bilateral subarticular mandibular gland atrophy, also unchanged. The remainder of the aerodigestive tract grossly appear unremarkable within the constraints of artifact from dental amalgam. Major salivary glands: Mild fatty atrophy of the bilateral submandibular glands. Normal, otherwise. Thyroid gland: Thyroid gland is heterogeneous without discretely delineated nodule. Lymph Nodes: No cervical lymphadenopathy by size criteria. Carotid/Parapharyngeal/Retropharyngeal Spaces: Patent extracranial carotid systems and internal jugular veins bilaterally. ?? Atherosclerotic calcifications at bilateral carotid bifurcations and proximal internal carotid arteries without high-grade stenosis. Otherwise normal. Orbits, Face and Skull Base: Paranasal sinuses, mastoid air cells, and middle ear cavities are grossly retention cyst/polyp in the left maxillary sinus clear. Bilateral pseudophakia. Otherwise normal. Imaged intracranial contents: No intracranial mass effect or hydrocephalus. No abnormal intracranial enhancement. Cervical spine and remaining osseous structures: No osteolytic or osteoblastic process. ??Moderate to severe cervical spondylosis. Suspected moderate spinal canal stenosis at C4-C5. Varying degrees of foraminal stenosis including severe left foraminal stenosis at C4-C5. Lung apices: For detailed intrathoracic findings, please see concurrent CT chest which is reported under a separate accession. Other: Not applicable. Procedure Note Provider, [facility] [place] - 04/29/2025 * * *Final Report* * * DATE OF EXAM: Apr 29 2025 10:27AM [facility] 0013 - CT NECK SOFT TISSUE W IVCON / PROCEDURE REASON: multiple diagnoses * * * * Physician Interpretation * * * * RESULT: CT NECK SOFT TISSUE W IVCON CLINICAL HISTORY: Base of tongue cancer. Additional possible history of colon cancer. TECHNIQUE: A series of contiguous helical scans were performed from the skull base to the aortic arch with intravenous contrast. Supplemental: N/A Contrast: Omnipaque 300. Contrast Dose: 100 cc Route of Administration: IV CT Radiation dose: Integrated Dose-length product (DLP) for this visit = 875 mGy*cm. CT Dose Reduction Employed: Automated exposure control(AEC) and iterative recon COMPARISON: CT neck 10/28/2024. PET/CT 01/29/2023 RESULT: Localizer images: No additional findings. Postoperative/Treatment Change/aerodigestive tract: Streak artifacts from dental amalgam limit evaluation of the adjacent structures. Unchanged asymmetric left tongue base and vallecula at site of previously enhancing lesion. No discrete nodular enhancement to suggest recurrent or worsening disease. Stable posttreatment/postradiation changes including mucosal/submucosal edema and bilateral subarticular mandibular gland atrophy, alsounchanged. The remainder of the aerodigestive tract grossly appear unremarkable within the constraints of artifact from dental amalgam. Major salivary glands: Mild fatty atrophy of the bilateral submandibular glands. Normal, otherwise. Thyroid gland: Thyroid gland is heterogeneous without discretely delineated nodule. Lymph Nodes: No cervical lymphadenopathy by size criteria. Carotid/Parapharyngeal/Retropharyngeal Spaces: Patent extracranial carotid systems and internal jugular veins bilaterally. Atherosclerotic calcifications at bilateral carotid bifurcations and proximal internal carotid arteries without high-grade stenosis. Otherwise normal. Orbits, Face and Skull Base: Paranasal sinuses, mastoid air cells, and middle ear cavities are grossly retention cyst/polyp in the left maxillary sinus clear. Bilateral pseudophakia. Otherwise normal. Imaged intracranial contents: No intracranial mass effect or hydrocephalus. No abnormal intracranial enhancement. Cervical spine and remaining osseous structures: No osteolytic or osteoblastic process. Moderate to severe cervical spondylosis. Suspected moderate spinal canal stenosis at C4-C5. Varying degrees of foraminal stenosis including severe left foraminal stenosis at C4-C5. Lung apices: For detailed intrathoracic findings, please see concurrent CT chest which is reported under a separate accession. Other: Not applicable. IMPRESSION IMPRESSION: * Stable posttreatment changes as detailed. No significant other enhancing lesion suggest recurrent or residual disease. * No enlarged lymph node in the neck, by CT size criteria. Transcribe Date/Time: Apr 29 2025 11:07A Dictated by: SADIQ MAYORGA MD This examination was interpreted and the report reviewed and electronically signed by: SADIQ MAYORGA MD on Apr 29 2025 11:21AM EST Thank you for allowing us to participate in the care of your patient. Should there be any questions regarding this interpretation, please call [phone]. If you are unable to reach us at the number above, please feel free to contact [facility] eRadiology at [phone]. Authorizing ProviderResult TypeResult StatusVivek Abhyankar MDCT-PAMAFinal Result * (ABNORMAL) COMPLETE BLOOD COUNT AND DIFFERENTIAL (04/29/2025 9:13 AM EDT) ComponentValueRef RangeTest MethodAnalysis TimePerformed AtPathologist SignatureWBC5.883.70 - 11.00 k/uL04/29/2025 9:25 AM EDTNORTHCASCENS[facility] LABRBC4.504.20 - 6.00 m/uL04/29/2025 9:25 AM EDTNORTHUTZEL [facility] JRKPkaissasdz16.213.0 - 17.0 g/dL04/29/2025 9:25 AM EDT [facility] HYBJlaktmihwg92.339.0 - 51.0 %04/29/2025 9:25 AM EDTUNITED [facility] BMAHMI37.680.0 - 100.0 fL 04/29/2025 9:25 AM EDTNORTHUTZEL WOMEN'S [facility] WJDJMZ44.326.0 - 34.0 pg04/29/2025 9:25 AM ED[facility] IJHTMPM68.830.5 - 36.0 g/dL04/29/2025 9:25 AM [facility] LABRDW-CV14.5 11.5 - 15.0 %04/29/2025 9:25 AM [facility] LAB Platelet Rnkxn272937 - 400 k/uL04/29/2025 9:25 AM EDJE[facility] LABMPV9.89.0 - 12.7 fL04/29/2025 9:25 AM [facility] LABNeutrophils %79.1%04/29/2025 9:25 AM [facility] LABAbs Neut4.661.45 - 7.50 k/uL04/29/2025 9:25 AM [facility] LABLymphocytes %9.9%04/29/2025 9:25 AM [facility] LABAbs Lymph0.58(L)1.00 - 4.00 k/uL04/29/2025 9:25 AM [facility] LABMonocytes %7.8%04/29/2025 9:25 AM EDT [facility] LABAbs Mono0.46<0.87 k/uL04/29/2025 9:25 AM [facility] LABEosinophils %1.4%04/29/2025 9:25 AM [facility] LABAbs Eosin0.08<0.46 k/uL04/29/2025 9:25 AM [facility] LABBasophils %0.9%04/29/2025 9:25 AM [facility] LABAbs Baso0.05<0.11 k/uL04/29/2025 9:25 AM [facility] LABImmature Granulocytes %0.9% 04/29/2025 9:25 AM [facility] LABAbs Immature Gran 0.05<0.10 k/uL04/29/2025 9:25 AM [facility] LABNRBC 0.0/100 WBC04/29/2025 9:25 AM EDJE[facility] LABAbsolute nRBC<0.01<0.01 k/uL04/29/2025 9:25 AM [facility] LABDiff OfnbWwso52/23/2025 9:25 AM [facility] LAB Specimen (Source)Anatomical Location / LateralityCollection Method / Volume Collection TimeReceived TimeBloodBLOOD SPECIMEN / UnknownVenipuncture / Pculpic5404/29/2025 9:13 AM EDT1 9:22 AM EDT Narrative Authorizing ProviderResult TypeResult StatusJohn Valladares MDLABORATORYFinal ResultPerforming OrganizationAddressCity/State/ZIP CodePhone Number [facility] [address] [place] [address] * (ABNORMAL) COMPREHENSIVE METABOLIC PANEL (04/29/2025 9:13 AM EDT)Component ValueRef RangeTest MethodAnalysis TimePerformed AtPathologist Signature Protein, Total7.16.3 - 8.0 g/dL04/29/2025 9:56 AM [facility] LABAlbumin4.23.9 - 4.9 g/dL04/29/2025 9:56 AM EDJE[facility] LABCalcium, Total10.28.5 - 10.2 mg/dL04/29/2025 9:56 AM [facility] LABBilirubin, Total0.50.2 - 1.3 mg/dL 04/29/2025 9:56 AM [facility] LABAlkaline Gkqhkkkbnlp2769 - 113 U/L1 9:56 AM EDJE[facility] UQFFXA2090 - 40 U/L1 9:56 AM [facility] KLVEEL0644 - 54 U/L1 9:56 AM [facility] UCUIyrqtee515(H)74 - 99 mg/dL04/29/2025 9:56 AM [facility] LABComment: The [place] [employer] (ADA) provides guidance for cutoff values for fasting glucose andrandom glucose. The ADA defines fasting as no [...] Standards of Medical Care in Diabetes 2016, [place] [employer]. Diabetes Care. 2016.39(Suppl 1). IGA758 - 24 mg/dL04/29/2025 9:56 AM [facility] LAB Creatinine1.070.73 - 1.22 mg/dL04/29/2025 9:56 AM [facility] JDDXkoqtc189610 - 144 mmol/L1 9:56 AM [facility] LABPotassium4.53.7 - 5.1 mmol/L1 9:56 AM [facility] KOMFhpjwbsp69329 - 107 mmol/L1 9:56 AM EDT [facility] ITBPU37362 - 30 mmol/L1 9:56 AM EDT [facility] LABAnion Iih821 - 15 mmol/L1 9:56 AM [facility] LABEstimated Glomerular Filtration Rate70 >=60 mL/min/1.73m 04/29/2025 9:56 AM EDTNORTHCOAST [facility] LABComment:Estimated Glomerular Filtration Rate (eGFR) is calculated using the 2020 CKD-EPI creatinine equation. This equation utilizes serum creatinine, sex, and age as parameters. The creatinine assay has traceable calibration to isotope dilution- mass spectrometry. Refer to KDIGO guidelines for clinical interpretation. In patients with unstable renal function, e.g. 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 Other nonspecific abnormal finding of lung field Stage 3 chronic kidney disease, unspecified whether stage 3a or 3b CKD (HCC) Other specified disorders of thyroid documented in this encounter Care Teams Team MemberRelationshipSpecialtyStart DateEnd Mason Johnson II, MD [address] [place] [address] PCP - GeneralInternal Kagmrupl93/30/[address] [place] [address] [place] [address] Registered DietitianNutrition08/20/22 John Valladares MD [address] [place] [address] [place] [address] PhysicianHematology/Oncology08/21/22 Natalie Cadena APRN.DECISION SCIENCE ANALYST [address] [place] [address] [place] [address] Nurse PractitionerHematology/Oncology08/21/22 Yordan [place] MD [address] [place] [address] [place] [address] PhysicianRadiation Oncology08/21/22 Marysol Purvis LSW Social Worker09/07/22documented as of this encounter
--- OUTSIDE RECORDS SUMMARY | 2025-04-29 12:00 | XMS_ITS | Encounter Summary ---
Author Organization [facility] Address [address] [place] [address] Care Team Providers Care Mixer Wet Pour Name Role Phone Mason Johnson MD Primary Care Provider Mason Johnson MD Unavailable [phone] Reason for Visit * ReasonOnset DateCommentship THA04/19/2025 Encounter Details DateTypeDepartmentCare Team (Latest Contact Info)Inhomiybvbz94/13/2025Telephone [facility] [address] [place] [phone] Jr. Fam Boyer, DO [address] [place] [address] hip DOM Social History Tobacco UseTypesPacks/DayYears UsedDateSmoking Tobacco: NeverPassive [...] times a week06/10/2023How often do you attend christianity or cheondoism services?Never06/10/2023o you belong to any clubs or organizations such as christianity groups, unions, fraternal or athletic groups, or school groups?No 06/10/2023How often do you attend meetings of the clubs or organizations you belong to?Never06/10/2023re you , , , , never , or living with a partner?Yzvveuu0906/10/2023UDIT-CAnswerDate RecordedQ1: How often do you have a drink containing alcohol?4 or more times a week 4Average Number of DrinksNot on file07/29/2023Frequency of Binge DrinkingNot on file07/29/2023Overall Financial Resource Strain (CARDIA)Answer Date RecordedHow hard is it for you to pay for the very basics like food, housing, medical care, and heating?Very hard06/10/2023HQ-2AnswerDate Recorded Patient Health Questionnaire-2 Ognqc443Finsanpete [facility] [place] of Occupational Health - Occupational Stress QuestionnaireAnswerDate [...] RecordedSex Assigned at BirthNot on file Legal XfrLbrw3709/19/2022 7:58 PM EDTGender IdentityNot on fileSexual Orientation Not on filedocumented as of this encounter Miscellaneous Notes * Telephone Encounter - Kaya Ibarra - 04/19/2025 1:17 PM EDT Patient called back, I scheduled him for an appt with to discuss surgery. * Telephone Encounter - Georgiana Armenta MA - 04/19/2025 12:01 PM EDT I checked with Anmol, patient will need to come back and see Dr. Boyer. His note states that patient refused surgery , sometimes insurance can be tricky. Just to make sure everything matches up for insurance, if you could please schedule him to see Merlin. Thanks! * Telephone Encounter - Olive Brown - 04/19/2025 9:42 AM EDT SHAMIKA 04/14/25 L Hip OA Has thought about it and would like to move forward with DOM Next available spot Please call patient documented in this encounter Plan of Treatment DateTypeDepartmentCare Team (Latest Contact Info)Ishpwzenhue00/24/2025 11:45 AM EDTOffice Visit [facility] [place] [facility] [address] [place] [address] Mason Johnson MD [address] [place] [address] 05/03/2025 1:00 PM EDTOffice Visit [facility] [place] [facility] [address] [place] [phone] Michael Murray, LANDSCAPE MAINTENANCE INTERNSHIP [address] [place] [address] 05/25/2025 9:20 AM ESTOffice Visit [facility] [place] [facility] [address] [place] [phone] Mayte Stevens, MANAGER [employer] AND CHART MOUNTER [address] [place] [address] 06/16/2025 1:00 PM ESTOffice Visit [facility] [place] [facility] [address] [place] [phone] Jr. Fma Boyer DO [address] [place] [address] 07/20/2025 8:30 AM ESTOffice Visit [facility] [place] [facility] [address] [place] [phone] Leela Schwartz MD [address] [place] [address] documented as of this encounter Visit Diagnoses Not on filedocumented in this encounter Additional Health Concerns AssessmentNoted TimePHQ-9 Depression Total Score: 5:03 PM EST documented as of this encounter Care Teams Team MemberRelationshipSpecialtyStart DateEnd Date Mason Johnson MD [address] [facility] [address] [place] [address] PCP - GeneralInternal Yifbqknc74/11/24 Mason Johnson MD [address] [facility] [address] [place] [address] PCP - Medical [place]07/08/2511documented as of this encounter
--- OUTSIDE RECORDS SUMMARY | 2025-04-29 12:00 | XMS_ITS | Encounter Summary ---
Author Organization [facility] Address [address] [place] [address] Care Team Providers Care Landscape Painter Name Role Phone Mason Sage MD Primary Care Provider [phone] Mason Sage MD Unavailable [phone] Encounter Details DateTypeDepartmentCare Team (Latest Contact Info)Ajbvkwqvsuc07/14/2025Telephone [facility] [place] [facility] [address] [place] [address] Mason Sage MD [address] [facility] [address] [place] [address] Social History Tobacco UseTypesPacks/DayYears UsedDateSmoking Tobacco: NeverPassive [...] times a week06/10/2023How often do you attend mosque or moravian services?Never06/10/2023o you belong to any clubs or organizations such as mosque groups, unions, fraternal or athletic groups, or school groups?No 06/10/2023How often do you attend meetings of the clubs or organizations you belong to?Never06/10/2023re you , , , , never , or living with a partner?Zoutnxn1706/10/2023UDIT-CAnswerDate RecordedQ1: How often do you have a drink containing alcohol?4 or more times a week 07/29/2023verage Number of DrinksNot on file07/29/2023Frequency of Binge DrinkingNot on file07/29/2023Overall Financial Resource Strain (CARDIA)Answer Date RecordedHow hard is it for you to pay for the very basics like food, housing, medical care, and heating?Very hard06/10/2023HQ-2AnswerDate Recorded Patient Health Questionnaire-2 Iidyd179Finmoab [facility] hospital [place] of Occupational Health - Occupational Stress QuestionnaireAnswerDate [...] RecordedSex Assigned at BirthNot on file Legal WmeKuns0209/19/2022 7:58 PM EDTGender IdentityNot on fileSexual Orientation Not on filedocumented as of this encounter Miscellaneous Notes * Telephone Encounter - Niki Alvarez LPN - 04/21/2025 1:41 PM EDT Pt notified he does not believe he has any left at home request a new rx be sent -done * Telephone Encounter - Mason Sgae MD - 04/21/2025 12:03 PM EDT We haven't discussed muscle spasms since at least the spring. Appt to evaluate this again. The Tizanadine we prescribed earlier is fine to take in the meantime. * Telephone Encounter - Radha Padilla - 04/20/2025 8:18 AM EDT Patient said that he's talked to dr sage before regarding his muscle spams. He said that its getting worse and he wondered what the next steps would be for this if he needs a referral or a new medication. He said if there is a muscle relaxer that he can take to let him know because he might already have it in his cabinet but he wants to make sure that it would be the one that Dr. Sage would want him on. documented in this encounter Plan of Treatment DateTypeDepartmentCare Team (Latest Contact Info)Raixnaegghp07/24/2025 11:45 AM EDTOffice Visit [facility] [place] [facility] [address] [facility] [address] [place] [phone] Mason Sage MD [address] [facility] [address] [place] [address] 05/03/2025 1:00 PM EDTOffice Visit [facility] [place] [facility] [address] [place] [phone] Michael Murray, REWINDER [address] [place] [address] 05/25/2025 9:20 AM ESTOffice Visit [facility] [place] [facility] [address] [place] [phone] Mayte Stevens, FOREST SCIENTIST-VETERINARY TECHNICIAN ASSISTANT [address] [place] [address] 06/16/2025 1:00 PM ESTOffice Visit [facility] [place] [facility] [address] [place] [address] Jr. Fam Boyer DO [address] [place] [address] 07/20/2025 8:30 AM ESTOffice Visit [facility] [place] [facility] [address] [place] [phone] Leela Schwartz MD [address] [place] [address] documented as of this encounter Visit Diagnoses Diagnosis Pseudogout involving multiple joints Torticollis Torticollis, unspecified documented in this encounter Additional Health Concerns AssessmentNoted TimePHQ-9 Depression Total Score: 5:03 PM EST documented as of this encounter Care Teams Team MemberRelationshipSpecialtyStart DateEnd Date Mason Sage MD [address] [place] [address] PCP - GeneralInternal Kvdrbhiy57/11/24 Mason Sage MD [address] [place] [address] PCP - Medical [place]07/08/2511documented as of this encounter
--- OUTSIDE RECORDS SUMMARY | 2025-04-29 12:01 | XMS_ITS | Encounter Summary ---
Author Organization [facility] Address [address] [place] [address] Care Team Providers Care Chin Strap Maker Name Role Phone Juliet Tiradomart EVERETT Unavailable [phone] John Valladares MD Unavailable [phone] Natalie Cadena APRN.FATS AND OILS LOADER Unavailable [phone] Yordan Randolph MD Unavailable [phone] Marysol Purvis SOFTWARE WRITER Unavailable Unavailable Alex OLIVAS MD, Mason Regan Primary Care Provider [phone] Source Comments In the event this information is protected by the Federal Confidentiality of Alcohol and Drug AbusePatient Records regulations: The Federal rules restrict any use of the information to criminally investigate or prosecute any alcohol or drug abuse patient.[facility] Encounter Details DateTypeDepartmentCare Team (Latest Contact Info)Maqxwjwkgdo95/23/2025Travel Social History Tobacco UseTypesPacks/DayYears UsedDateSmoking Tobacco: NeverPassive Smoke Exposure: NeverSmokeless Tobacco: NeverAlcohol UseStandard Drinks/WeekComments Yes0 (1 standard drink = 0.6 oz pure alcohol)daily 3 beersPHQ-2AnswerDate RecordedPHQ-2 prywm8015Area Deprivation IndexAnswerDate RecordedNational Score (1-100), lower number is lower dzqb442411/07/2022State Score (1-10), lower number is lower ppba809/03/2023Data from: https://www.neighborhoodatlas.[facility]/. Last address used for [address] [place] [address]/07/2022Sex and Gender InformationValueDate Recorded Sex Assigned at BirthNot on fileLegal XzhSdaw30/02/2012 10:15 AM ESTGender IdentityNot on fileSexual OrientationNot on filedocumented as of this encounter Functional Status * Are you deaf or do you have serious difficulty hearing?AnswerDate of UaetvkqywnRksohrCe66/23/2014 11:20 AM Jasmyn Anthony * Are you blind or do you have serious difficulty seeing, even when wearing glasses?AnswerDate of YlnncykcaeYaacdwSx77/23/2014 11:20 AM Jasmyn Anthony * Do you have serious difficulty walking or climbing stairs?AnswerDate of NnumupxdbeNwswwuYb93/23/2014 11:20 AM Jasmyn Anthony * Do you have difficulty dressing or bathing?AnswerDate of AssessmentAuthorNo 04/29/2014 11:20 AM Jasmyn Anthony * Because of a physical, mental, or emotional condition, do you have difficulty doing errands alone such as visiting a doctor's office or shopping?AnswerDate of MrqauzfqygWzhdsqVf35/23/2014 11:20 AM Jasmyn Anthony documented as of this encounter Mental Status * Because of a physical, mental, or emotional condition, do you have serious difficulty concentrating, remembering, or making decisions?AnswerEntry Date DotquzWy18/23/2014 11:20 AM Jasmyn Anthony documented in this encounter Plan of Treatment DateTypeDepartmentCare Team (Latest Contact Info)Enmgulzcjpv37/30/2025 10:00 AM EDTVisit (SP) Office Hematology/Oncology [address] [place] [address] John Valladares MD [address] [place] [address] [place] [address] 6 MONTH FOLLOW UP AFTER CT SCAN05/06/2025 10:30 AM EDTOffice Visit Radiation Oncology [address] [place] [address] Yordan Randolph MD [address] [place] [address] 3 month follow updocumented as of this encounter Visit Diagnoses Not on filedocumented in this encounter Care Teams Team MemberRelationshipSpecialtyStart DateEnd Date Mason Johnson II, MD [address] [place], [place] [address] PCP - GeneralInternal Qoxdyhxt67/30/[address] [place] [address] Registered DietitianNutrition08/20/22 John Valladares MD [address] [place] [address] PhysicianHematology/Oncology08/21/22 Natalie Cadena APRN.FATS AND OILS LOADER [address] [place] [address] [place] [address] Nurse PractitionerHematology/Oncology08/21/22 Yordan Randolph MD [address] [place] [address] PhysicianRadiation Oncology08/21/22 Marysol Purvis LSW Social Worker09/07/22documented as of this encounter
--- OUTSIDE RECORDS SUMMARY | 2025-04-29 12:01 | XMS_ITS | Clinical Summary ---
Author Organization [facility] Address [address] [place], [place] [address] Care Team Providers Care Magnetic Resonance Technologist Name Role Phone Christopher Tiradodavid EVERETT Unavailable [phone] John Valladares MD Unavailable [phone] Natalie Cadena APRN.AMBULATORY TECHNOLOGIST Unavailable [phone] Yordan Randolph MD Unavailable [phone] Marysol Purvis RN TRAUMA Unavailable Unavailable Alex OLIVAS MD, Daniel B Primary Care Provider [phone] Allergies No known active allergies Medications MedicationSigDispense QuantityRefillsLast FilledStart DateEnd DateStatus Aspirin 81 mg tab 81 mg every other day.Active fenofibrate (LOFIBRA) 134 mg capsule Take 134 mg by mouth once daily.03/02/2016Active ergocalciferol 50,000 unit capsule (VITAMIN D2, DRISDOL) TAKE 1 CAPSULE BY MOUTH ODHSLB2107/05/2022ctive metFORMIN (GLUCOPHAGE) 500 mg tablet Take 500 mg by mouth once daily.06/12/2022ctive metoprolol succinate ER (TOPROL XL) 25 mg 24 hr tablet Take 25 mg by mouth once daily.06/12/2022ctive latanoprost (XALATAN) 0.005 % ophthalmic solution instill 1 (ONE) DROP IN BOTH EYES AT EMGILIT0705/01/2023ctive cholecalciferol, Vitamin D3, (VITAMIN D3) 1,250 mcg (50,000 unit) cap capsule Take 1 capsule by mouth one time a week.10/01/2023ctive iv contrast (will be provided with radiology [...] theCT contrast administration guidelines link. 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]04/29/2025Travelfrom Last 3 Months Immunizations ImmunizationAdministration DatesNext DueCOVID-19 original vaccine, full dose, monovalent (MODERNA)09/06/2020,08/09/2020influenza (HD-IIV3) vaccine, age 65+ yr, high dose, trivalent, PF (FLUZONE HIGH-DOSE)05/19/2019influenza (HD-IIV4) vaccine, age 65+ yr, high dose, quadrivalent, PF (FLUZONE HIGH-DOSE)07/15/2024 influenza (IIV3) vaccine, trivalent (AFLURIA, FLULAVAL, FLUVIRIN, FLUZONE) 04/07/2022influenza (IIV3) vaccine, trivalent, PF (AFLURIA, FLUARIX, FLULAVAL, FLUVIRIN, FLUZONE)06/21/2015influenza (LAIV) vaccine, nasal, unspecified aexwavflfbk11/27/2022influenza (aIIV4) vaccine, age 65+ yr, quadrivalent, PF (FLUAD QUAD)06/20/2023,05/03/2022,06/15/2021influenza (ccIIV4) vaccine, age 6+ mo, quadrivalent, PF (FLUCELVAX)06/24/2018novel influenza (Q4K2-04) vaccine, PF 06/20/2009 Social History Tobacco UseTypesPacks/DayYears UsedDateSmoking Tobacco: NeverPassive Smoke Exposure: NeverSmokeless Tobacco: Never Tobacco Cessation:Counseling Given: Not Answered Alcohol UseStandard Drinks/WeekCommentsYes0 (1 standard drink = 0.6 oz pure alcohol)daily 3 beersPHQ-2AnswerDate RecordedPHQ-2 fatsx041rea Deprivation IndexAnswerDate RecordedNational Score (1-100), lower number is lower xsyn275211/07/2022State Score (1-10), lower number is lower fqeb267 Data from: https://www.neighborhoodatlas.medicine.[facility].edu/. Last address used for [address] [place] [address]/07/2022Sex and Gender InformationValueDate RecordedSex Assigned at BirthNot on fileLegal CqeExjm62/02/2012 10:15 AM EST Gender IdentityNot on fileSexual OrientationNot on file Last Filed Vital Signs Vital SignReadingTime TakenCommentsBlood Xuplnvql239/6904 10:50 AM EDT Ifndm2951 10:50 AM WINTxjbdzuzdsi56.6 ??C (97.9 ??F)11/04/2024 10:50 AM EDTRespiratory Ofib332011/04/2024 10:50 AM EDTOxygen Vaixfmfstw48%11/04/2024 10:50 AM EDTInhaled Oxygen Concentration--Nrxcqh89.7 kg (202 lb 2.6 oz)11/04/2024 10:50 AM HFXZrggyj912.9 cm (5' 5.71 )11/04/2024 10:50 AM EDTBody Mass Index32.92 11/04/2024 10:50 AM EDT Plan of Treatment DateTypeDepartmentCare Team (Latest Contact Info)Xdesalpatvn52/30/2025 10:00 AM EDTVisit (SP) Office Hematology/Oncology [address] [place] [address] [place] [address] John Valladares MD [address] [place] [address] [address] MONTH FOLLOW UP AFTER CT SCAN05/06/2025 10:30 AM EDTOffice Visit Radiation Oncology [address] [place] [address] [place] [address] Yordan Randolph MD [address] [place] [address] 3 month follow upHealth MaintenanceDue DateLast DoneCommentsAnxiety Screening 2Depression Dmgcqsiqo77/26/1962DTaP,Tdap,Td Vaccine (1 - Tdap) 10/31/1962Pneumococcal Vaccine: 50+ (1 of 1 - PCV)10/31/1993Shingrix Vaccine (1 of 2)10/31/1993RSV Vaccine (1 - 1-dose 75+ series)10/31/2018Advance Directive Bvfecftrsz97/01/2025Medicare Advantage Annual Wellness Visit5Covid-19 Vaccine (3 - season)/08/2020, 08/09/2020Influenza Vaccine (#1)501/02/2025, 06/20/2023, 05/03/2022, Additional history exists Diabetes Ujyslnoze03, 12/09/2024, 10/28/2024, Additional history exists Procedures Procedure NamePriorityDate/TimeAssociated DiagnosisCommentsCT NECK SOFT TISSUE W XVFIXTyddsfh52/23/2025 10:27 AM EDT 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 Stage 3 chronic kidney disease, unspecified whether stage 3a or 3b CKD (HCC) CBC + WGVJXthyhkj15/23/2025 9:13 AM EDT 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 If you are unable to reach us at the number above, please feel free to contact [facility] eRadiology at [phone]. Narrative 04/29/2025 11:23 AM EDT * * [...] accession. Other: Not applicable. Procedure Note Provider, [facility] [place] - 04/29/2025 * * *Final Report* * * DATE OF EXAM: Apr 29 2025 10:27AM [facility] 0013 - CT NECK SOFT [...] any questions regarding this interpretation, please call [phone]. If you are unable to reach us at the number above, please feel free to contact [facility] eRadiology at [phone]. Authorizing ProviderResult TypeResult StatusVivek Abhyankar MDCT-PAMAFinal Result * (ABNORMAL) COMPREHENSIVE METABOLIC PANEL (04/29/2025 9:13 AM EDT)Component ValueRef RangeTest MethodAnalysis TimePerformed AtPathologist Signature Protein, Total7.16.3 - 8.0 g/dL04/29/2025 9:56 AM EDTNORTSELECT [facility] LABAlbumin4.23.9 - 4.9 g/dL04/29/2025 9:56 AM EDTPLE[facility] LABCalcium, Total10.28.5 - 10.2 mg/dL04/29/2025 9:56 AM EDTNORTSELECT SPECIALTY [facility] LABBilirubin, Total0.50.2 - 1.3 mg/dL 04/29/2025 9:56 AM EDTNORTSELECT [facility] LABAlkaline Qffhlxzegki2841 - 113 U/L1 9:56 AM EDTNORTSELECT [facility] UEFSXZ9485 - 40 U/L1 9:56 AM EDTNORTSELECT [facility] LYSRCJ9834 - 54 U/L1 9:56 AM EDTNORTSELECT [facility] DUYJwnubem791(H)74 - 99 mg/dL04/29/2025 9:56 AM TRTSELECT [facility] LABComment: The [place] Diabetes Association (ADA) provides guidance for cutoff [...] Standards of Medical Care in Diabetes 2016, [place] Diabetes Association. Diabetes Care. 2016.39(Suppl 1). VWG509 - 24 mg/dL04/29/2025 9:56 AM [facility] Creatinine1.070.73 - 1.22 mg/dL04/29/2025 9:56 AM [facility] FKGUtnprb806766 - 144 mmol/L1 9:56 AM [facility] LABPotassium4.53.7 - 5.1 mmol/L1 9:56 AM [facility] FYZAepixaud05165 - 107 mmol/L1 9:56 AM EDT [facility] WBECF84600 - 30 mmol/L1 9:56 AM T [facility] LABAnion Eww288 - 15 mmol/L1 9:56 AM [facility] LABEstimated Glomerular Filtration Rate70 >=60 mL/min/1.73m 04/29/2025 9:56 AM [facility] LABComment:Estimated Glomerular Filtration Rate (eGFR) is [...] VolumeCollection TimeReceived TimeBloodBLOOD SPECIMEN / UnknownVenipuncture / Rgjgtvm7804/29/2025 9:13 AM EDT1 9:22 AM EDT Narrative Authorizing ProviderResult TypeResult StatusVivemagan Valladares MDLABORATORYFinal ResultPerforming OrganizationAddressCity/State/ZIP CodePhone Number [facility] [address] [place] [address] * (ABNORMAL) COMPLETE BLOOD COUNT AND DIFFERENTIAL (04/29/2025 9:13 AM EDT) ComponentValueRef RangeTest MethodAnalysis TimePerformed AtPathologist SignatureWBC5.883.70 - 11.00 k/uL04/29/2025 9:25 AM EDTNORTSELECT SPECIALTY HOS[facility]ITAL[facility] LABRBC4.504.20 - 6.00 m/uL04/29/2025 9:25 AM EDTPLE[facility] IUWVahotguiwq95.213.0 - 17.0 g/dL04/29/2025 9:25 AM EDT [facility] LNKDokrnjafcq94.339.0 - 51.0 %04/29/2025 9:25 AM EDTPLE[facility] VAL[facility] XOFVZA35.680.0 - 100.0 fL 04/29/2025 9:25 AM EDTNOPOCAHONTAS [facility] XJRRJW22.326.0 - 34.0 pg04/29/2025 9:25 AM EDTNOPOCAHONTAS MEMOR[facility] WGPWWBI74.830.5 - 36.0 g/dL04/29/2025 9:25 AM EDTPLE[facility] VAL[facility] LABRDW-CV14.5 11.5 - 15.0 %04/29/2025 9:25 AM EDTNOPOCAHONTAS MEMOR[facility] LAB Platelet Wiihr287261 - 400 k/uL04/29/2025 9:25 AM EDTNORTSELECT [facility] LABMPV9.89.0 - 12.7 fL04/29/2025 9:25 AM EDTPLEASANT VALLEY [facility] LABNeutrophils %79.1%04/29/2025 9:25 AM [facility] LABAbs Neut4.661.45 - 7.50 k/uL04/29/2025 9:25 AM EDRICHWO[facility] LABLymphocytes %9.9%04/29/2025 9:25 AM [facility] LABAbs Lymph0.58(L)1.00 - 4.00 k/uL04/29/2025 9:25 AM [facility] LABMonocytes %7.8%04/29/2025 9:25 AM EDT [facility] LABAbs Mono0.46<0.87 k/uL04/29/2025 9:25 AM [facility] LABEosinophils %1.4%04/29/2025 9:25 AM [facility] LABAbs Eosin0.08<0.46 k/uL04/29/2025 9:25 AM [facility] LABBasophils %0.9%04/29/2025 9:25 AM [facility] LABAbs Baso0.05<0.11 k/uL04/29/2025 9:25 AM [facility] LABImmature Granulocytes %0.9% 04/29/2025 9:25 AM [facility] LABAbs Immature Gran 0.05<0.10 k/uL04/29/2025 9:25 AM [facility] LABNRBC 0.0/100 WBC04/29/2025 9:25 AM [facility] LABAbsolute nRBC<0.01<0.01 k/uL04/29/2025 9:25 AM [facility] LABDiff GfogAfne91/23/2025 9:25 AM [facility] Specimen (Source)Anatomical Location / LateralityCollection Method / Volume Collection TimeReceived TimeBloodBLOOD SPECIMEN / UnknownVenipuncture / Alikpnv7504/29/2025 9:13 AM EDT1 9:22 AM EDT Narrative Authorizing ProviderResult TypeResult StatusJohn Valladares MDLABORATORYFinal ResultPerforming OrganizationAddressCity/State/ZIP CodePhone Number [facility] [place] [facility] [address] [place] [address] from Last 3 Months Insurance MemberSubscriberPlan / Payer (Effective 2024-Present)Name:Manish Root Relation to Subscriber:SelfName:Manish Root Payer ID:Not on file Type:HMO Address: [place] [id number] Care Teams Team MemberRelationshipSpecialtyStart DateEnd Mason Johnson II, MD [address] [place] [address] PCP - GeneralInternal Yszrhtds28/30/[address] [place] [address] Registered DietitianNutrition08/20/22 John Valladares MD [address] [place] [address] PhysicianHematology/Oncology08/21/22 Natalie Cadena, YENY.AMBULATORY TECHNOLOGIST [address] [place] [address] Nurse PractitionerHematology/Oncology08/21/22 Yordan [place] MD [address] [place] [address] [place] [address] PhysicianRadiation Oncology08/21/22 Marysol Purvis LSW Social Worker09/07/22
--- OUTSIDE RECORDS SUMMARY | 2025-04-29 12:01 | XMS_ITS | Encounter Summary ---
Author Organization [facility] Address [address] [place] [address] Care Team Providers Care Watch Repair Technician Name Role Phone Mason Johnson MD Primary Care Provider [phone] Mason Johnson MD Unavailable [phone] Encounter Details DateTypeDepartmentCare Team (Latest Contact Info)Pvxgdqomlan57/22/2025Travel Social History Tobacco UseTypesPacks/DayYears UsedDateSmoking Tobacco: NeverPassive [...] times a week06/10/2023How often do you attend uatsdin or druze services?Never06/10/2023o you belong to any clubs or organizations such as uatsdin groups, unions, fraternal or athletic groups, or school groups?No 06/10/2023How often do you attend meetings of the clubs or organizations you belong to?Never06/10/2023re you , , , , never , or living with a partner?Wggkumx9106/10/2023UDIT-CAnswerDate RecordedQ1: How often do you have a drink containing alcohol?4 or more times a week 07/29/2023verage Number of DrinksNot on file07/29/2023Frequency of Binge DrinkingNot on file07/29/2023Overall Financial Resource Strain (CARDIA)Answer Date RecordedHow hard is it for you to pay for the very basics like food, housing, medical care, and heating?Very hard06/10/2023HQ-2AnswerDate Recorded Patient Health Questionnaire-2 [facility]oupu072Final[facility] [place] of Occupational Health - Occupational Stress QuestionnaireAnswerDate [...] RecordedSex Assigned at BirthNot on file Legal EtyZita6709/19/2022 7:58 PM EDTGender IdentityNot on fileSexual Orientation Not on filedocumented as of this encounter Plan of Treatment DateTypeDepartmentCare Team (Latest Contact Info)Iekbmnicgiz14/24/2025 11:45 AM EDTOffice Visit NOMJanell Godwin [address] [facility] [address] [place] [phone] Mason Johnson MD [address] [place] [address] 05/03/2025 1:00 PM EDTOffice Visit [facility] [address] [place] [phone] Michael Murray, CRYS [address] [place] [address] 05/25/2025 9:20 AM ESTOffice Visit [facility] [place] [facility] [address] [place] [address] Mayte Stevens, WIRE WINDER-REVERBERATORY FURNACE SUPERVISOR [address] [place] [address] 06/16/2025 1:00 PM ESTOffice Visit [facility] [address] [place] [address] Jr. Fam Boyer DO [address] [place] [address] 07/20/2025 8:30 AM ESTOffice Visit [facility] [place] [facility] [address] [place] [address] Leela Schwartz MD [address] [place] [address] documented as of this encounter Visit Diagnoses Not on filedocumented in this encounter Additional Health Concerns AssessmentNoted TimePHQ-9 Depression Total Score: 5:03 PM EST documented as of this encounter Care Teams Team MemberRelationshipSpecialtyStart DateEnd Date Mason Johnson MD [address] [place] [address] PCP - GeneralInternal Tkmwwkxf07/11/24 Mason Johnson MD [address] [place] [address] PCP - Medical [place]07/08/2511documented as of this encounter
--- OUTSIDE RECORDS SUMMARY | 2025-04-29 12:01 | XMS_ITS | Encounter Summary ---
Author Organization [facility] Address [address] [place] [address] Care Team Providers Care Field Applications Specialist Name Role Phone Mason Johnson MD Primary Care Provider [phone] Mason Johnson MD Unavailable [phone] Reason for Visit * ReasonOnset DateCommentsLab Work04/29/2025 Encounter Details DateTypeDepartmentCare Team (Latest Contact Info)Tibicsmbxjr28/23/2025Telephone [facility] [address] [place] [phone] Jr. Fam Boyer, DO [address] [address] Lab Work Social History Tobacco UseTypesPacks/DayYears UsedDateSmoking Tobacco: NeverPassive [...] times a week06/10/2023How often do you attend lutheran or oriental orthodox services?Never06/10/2023o you belong to any clubs or organizations such as lutheran groups, unions, fraternal or athletic groups, or school groups?No 06/10/2023How often do you attend meetings of the clubs or organizations you belong to?Never06/10/2023re you , , , , never , or living with a partner?Yahprlj7406/10/2023UDIT-CAnswerDate RecordedQ1: How often do you have a drink containing alcohol?4 or more times a week 4Average Number of DrinksNot on file07/29/2023Frequency of Binge DrinkingNot on file07/29/2023Overall Financial Resource Strain (CARDIA)Answer Date RecordedHow hard is it for you to pay for the very basics like food, housing, medical care, and heating?Very hard06/10/2023HQ-2AnswerDate Recorded Patient Health Questionnaire-2 Epefp140Finfillmore [facility] [place] of Occupational Health - Occupational Stress QuestionnaireAnswerDate [...] RecordedSex Assigned at BirthNot on file Legal UgfBfzh5309/19/2022 7:58 PM EDTGender IdentityNot on fileSexual Orientation Not on filedocumented as of this encounter Miscellaneous Notes * Telephone Encounter - Georgiana Armenta MA - 04/29/2025 11:28 AM EDT I called and spoke to the patient and let him know. * Telephone Encounter - Georgiana Armenta MA - 04/29/2025 10:37 AM EDT Earlene, can you please let him know Anmol's message? Thank you! * Telephone Encounter - Georgiana Armenta MA - 04/29/2025 10:15 AM EDT Anmol, blood work is for a total knee? * Telephone Encounter - Earlene Gaona - 04/29/2025 9:31 AM EDT [facility] or something done that needed contrast in his IV, he is wanting to know if its ok if he gets his blood work done today when he leaves there or should he wait since he had the contrast? Please advise documented in this encounter Plan of Treatment DateTypeDepartmentCare Team (Latest Contact Info)Pnrcqpbqtdd54/24/2025 11:45 AM EDTOffice Visit [facility] [place] [facility] [address] [facility] [address] [place] [phone] Mason Johnson MD [address] [place] [address] 05/03/2025 1:00 PM EDTOffice Visit [facility] [address] [place] [phone] Michael [place], PHYSICIST ASTROPHYSICS [address] [place] [address] 05/25/2025 9:20 AM ESTOffice Visit [facility] [address] [place] [phone] Mayte Stevens, WET PRESS TENDER-ENVIRONMENTAL ENGINEERING AIDE [address] [place] [address] 06/16/2025 1:00 PM ESTOffice Visit [facility] [address] [place] [phone] Jr. Fam Boyer, [address] [place] [address] 07/20/2025 8:30 AM ESTOffice Visit [facility] [place] [facility] [address] [place] [phone] Leela Schwartz MD [address] [place] [address] documented as of this encounter Visit Diagnoses Not on filedocumented in this encounter Additional Health Concerns AssessmentNoted TimePHQ-9 Depression Total Score: 5:03 PM EST documented as of this encounter Care Teams Team MemberRelationshipSpecialtyStart DateEnd Date Mason Johnson MD [address] [facility] [address] [place] [address] PCP - GeneralInternal Eoktlwyw26/11/24 Mason Johnson MD [address] [facility] [address] [place] [address] PCP - Medical [place]07/08/2511documented as of this encounter
--- OUTSIDE RECORDS SUMMARY | 2025-04-29 12:01 | XMS_ITS | Encounter Summary ---
Author Organization [facility] Address [address] [place] [address] Care Team Providers Care Bdc Manager Name Role Phone Mason Johnson MD Primary Care Provider [phone] Mason Johnson MD Unavailable [phone] Reason for Visit * ReasonOnset DateCommentsHold Vllqrv4104/28/2025 Encounter Details DateTypeDepartmentCare Team (Latest Contact Info)Lqdynxkeskf33/22/2025Telephone [facility] [place] [facility] [address] [place] [address] Georgiana Armenta MA Hold Asprin Social History Tobacco UseTypesPacks/DayYears UsedDateSmoking Tobacco: NeverPassive [...] times a week06/10/2023How often do you attend religious or presybeterian services?Never06/10/2023o you belong to any clubs or organizations such as religious groups, unions, fraternal or athletic groups, or school groups?No 06/10/2023How often do you attend meetings of the clubs or organizations you belong to?Never06/10/2023re you , , , , never , or living with a partner?Lbyqbmd6706/10/2023UDIT-CAnswerDate RecordedQ1: How often do you have a drink containing alcohol?4 or more times a week 07/29/2023verage Number of DrinksNot on file07/29/2023Frequency of Binge DrinkingNot on file07/29/2023Overall Financial Resource Strain (CARDIA)Answer Date RecordedHow hard is it for you to pay for the very basics like food, housing, medical care, and heating?Very hard06/10/2023HQ-2AnswerDate Recorded Patient Health Questionnaire-2 Edkth498[facility] [place] of Occupational Health - Occupational Stress QuestionnaireAnswerDate [...] RecordedSex Assigned at BirthNot on file Legal WjjNkps8009/19/2022 7:58 PM EDTGender IdentityNot on fileSexual Orientation Not on filedocumented as of this encounter Miscellaneous Notes * Telephone Encounter - Georgiana Armenta MA - 04/28/2025 2:42 PM EDT Spoke to patient, he is seeing Dr. Johnson on Saturday to discuss the Asprin. * Telephone Encounter - Georgiana Armenta MA - 04/28/2025 1:36 PM EDT Called patient and left vm requesting call back. * Telephone Encounter - ZHENG Rod - 04/28/2025 10:37 AM EDT Due to history of stent placement, Dr. Johnson will need patient to have Cardiology clear him to stopAspirin for two full weeks prior to the surgery. If he is not still established with a Records And Information Manager, we can provide him a referral for clearance. Just let our office know. * Telephone Encounter - Georgiana Armenta MA - 04/28/2025 10:21 AM EDT Manish is having a left hip arthroplasty on May 10. (I did leave a voicemail with your officeabout getting him in for clearance). He state that his past PCP put him on Asprin every other day. Dr. Boyer likes to hold Asprin 2 weeks prior to surgery and then he will resume the day after BID. Are you okay with him holding? Thanks! documented in this encounter Plan of Treatment DateTypeDepartmentCare Team (Latest Contact Info)Goefhuzyiku24/24/2025 11:45 AM EDTOffice Visit [facility] [address] [facility] [address] [place] [phone] Mason Johnson MD [address] [facility] [address] [place] [address] 05/03/2025 1:00 PM EDTOffice Visit [facility] [address] [place] [address] Michael Murray, CRYS [address] [place] [address] 05/25/2025 9:20 AM ESTOffice Visit [facility] [place] [facility] [address] [place] [address] Mayte Stevens, PAGEANT DIRECTOR-BURLAP WORKER [address] [place] [address] 06/16/2025 1:00 PM ESTOffice Visit [facility] [place] [facility] [address] [place] [address] Jr. Fam Boyer DO [address] [place] [address] 07/20/2025 8:30 AM ESTOffice Visit [facility] [place] [facility] [address] [place] [address] Leela Schwartz MD [address] [place] [address] documented as of this encounter Visit Diagnoses Not on filedocumented in this encounter Additional Health Concerns AssessmentNoted TimePQ-9 Depression Total Score: 5:03 PM EST documented as of this encounter Care Teams Team MemberRelationshipSpecialtyStart DateEnd Date Mason Johnson MD [address] [place] [address] PCP - GeneralInternal Pfisdvdh87/11/24 Mason Johnson MD [address] [facility] [address] [place] [address] PCP - Medical [place]07/08/2511documented as of this encounter
--- OUTSIDE RECORDS SUMMARY | 2025-04-29 12:01 | XMS_ITS ---
Author Organization [facility] Address [facility] [place] [id number] Care Team Providers Care Digital Ad Trafficker Name Role Phone Juliet Tiradomart EVERETT Unavailable [phone] John Valladares MD Unavailable [phone] Natalie Cadena APRN.IT SALES EXECUTIVE Unavailable [phone] Yordan [place] MD Unavailable [phone] Marysol Purvis PRODUCT ENGINEERING MANAGER Unavailable Unavailable Alex OLIVAS MD, Mason Regan Primary Care Provider [phone] Active Problems ProblemNoted DateDiagnosed DateDisorder of carbohydrate pyqszldtir36/07/2023 Stage 3 chronic kidney disease, unspecified whether stage 3a or 3b CKD2022 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 Past Treatment and Therapy Plans Plan NameStart DateDiscontinue DateTreatment MedicationsDiscontinue ReasonPlan ProviderCyclesAMB HYDRATION - NS 1000ML IV - ONCE/10/2022No medications scheduled.OtherAbJohn au MD2 of 2 cycles startedPlan NameStart Date Discontinue DateTreatment MedicationsDiscontinue ReasonPlan ProviderCyclesAMB CISPLATIN 40 D1,8,15,22,29,36,43 - ONCE/* CISplatin iv piggyback or iv infusion * fosaprepitant (EMEND) Treatment CompleteAbJohn au MD1 of 1 cycle started Resolved Problems ProblemNoted DateDiagnosed DateResolved DateChemotherapy-induced neutropenia /Overlapping malignant neoplasm of colon
--- OUTSIDE RECORDS SUMMARY | 2025-04-29 12:01 | XMS_ITS | Encounter Summary ---
Author Organization [facility] Address [address] [place] [address] Care Team Providers Care Whey Department Operator Name Role Phone Mason Johnson MD Primary Care Provider [phone] Mason Johnson MD Unavailable [phone] Encounter Details DateTypeDepartmentCare Team (Latest Contact Info)Tpqncuwobpq17/14/2025Travel Social History Tobacco UseTypesPacks/DayYears UsedDateSmoking Tobacco: NeverPassive [...] times a week06/10/2023How often do you attend bahai or jewish services?Never06/10/2023o you belong to any clubs or organizations such as bahai groups, unions, fraternal or athletic groups, or school groups?No 06/10/2023How often do you attend meetings of the clubs or organizations you belong to?Never06/10/2023re you , , , , never , or living with a partner?Bucnhls1606/10/2023UDIT-CAnswerDate RecordedQ1: How often do you have a drink containing alcohol?4 or more times a week 07/29/2023verage Number of DrinksNot on file07/29/2023Frequency of Binge DrinkingNot on file07/29/2023Overall Financial Resource Strain (CARDIA)Answer Date RecordedHow hard is it for you to pay for the very basics like food, housing, medical care, and heating?Very hard06/10/2023HQ-2AnswerDate Recorded Patient Health Questionnaire-2 Kgqmr818Finfillmore [facility] [place] of Occupational Health - Occupational Stress QuestionnaireAnswerDate [...] RecordedSex Assigned at BirthNot on file Legal QgePjse8609/19/2022 7:58 PM EDTGender IdentityNot on fileSexual Orientation Not on filedocumented as of this encounter Plan of Treatment DateTypeDepartmentCare Team (Latest Contact Info)Fhgsvlpeond22/24/2025 11:45 AM EDTOffice Visit [facility] [address] [facility] [address] [place] [address] Mason Johnson MD [address] [place] [address] 05/03/2025 1:00 PM EDTOffice Visit [facility] [address] [place] [phone] Michael [place], CRYS [address] [place] [address] 05/25/2025 9:20 AM ESTOffice Visit [facility] [place] [facility] [address] [place] [address] Mayte Stevens, BATTERYMAN-DIRECTOR OF ANESTHESIA SERVICES [address] [place] [address] 06/16/2025 1:00 PM ESTOffice Visit [facility] [place] [facility] [address] [place] [address] Jr. Fam Boyer DO [address] [place] [address] 07/20/2025 8:30 AM ESTOffice Visit [facility] [place] [facility] [address] [place] [address] Leela Schwartz MD [address] [place] [address] documented as of this encounter Visit Diagnoses Not on filedocumented in this encounter Additional Health Concerns AssessmentNoted TimePHQ-9 Depression Total Score: 5:03 PM EST documented as of this encounter Care Teams Team MemberRelationshipSpecialtyStart DateEnd Date Mason Johnson MD [address] [place] [address] PCP - GeneralInternal Wuiawvfx93/11/24 Mason Johnson MD [address] [place] [address] PCP - Medical [place]07/08/2511documented as of this encounter
--- OUTSIDE RECORDS SUMMARY | 2025-04-29 12:01 | XMS_ITS | Encounter Summary ---
Author Organization [facility] Address [address] [place] [address] Care Team Providers Care Blender/Braze Applicator Name Role Phone Mason Johnson MD Primary Care Provider Mason Johnson MD Unavailable [phone] Encounter Details DateTypeDepartmentCare Team (Latest Contact Info)Bmpmwipcwka64/14/2025Bamboo flowsheet [facility] [place] [facility] [address] [facility] [address] [place] [address] Leela Schwartz MD [address] [facility] [address] [place] [address] Social History Tobacco UseTypesPacks/DayYears UsedDateSmoking Tobacco: NeverPassive [...] times a week06/10/2023How often do you attend spiritism or muslim services?Never06/10/2023o you belong to any clubs or organizations such as spiritism groups, unions, fraternal or athletic groups, or school groups?No 06/10/2023How often do you attend meetings of the clubs or organizations you belong to?Never06/10/2023re you , , , , never , or living with a partner?Cgavwrn9806/10/2023UDIT-CAnswerDate RecordedQ1: How often do you have a drink containing alcohol?4 or more times a week 07/29/2023verage Number of DrinksNot on file07/29/2023Frequency of Binge DrinkingNot on file07/29/2023Overall Financial Resource Strain (CARDIA)Answer Date RecordedHow hard is it for you to pay for the very basics like food, housing, medical care, and heating?Very hard06/10/2023HQ-2AnswerDate Recorded Patient Health Questionnaire-2 Sogwx880Finjordan valley medical center [place] of Occupational Health - Occupational Stress QuestionnaireAnswerDate [...] RecordedSex Assigned at BirthNot on file Legal CvwCuzx7209/19/2022 7:58 PM EDTGender IdentityNot on fileSexual Orientation Not on filedocumented as of this encounter Plan of Treatment DateTypeDepartmentCare Team (Latest Contact Info)Rvlhhxiwyza68/24/2025 11:45 AM EDTOffice Visit [facility] [place] [facility] [address] [facility] [address] [place] [address] Mason Johnson MD [address] [facility] [address] [place] [address] 05/03/2025 1:00 PM EDTOffice Visit [facility] [address] [place] [address] Michael [place], EVAPORATOR HELPER [address] [place], [place] [address] 05/25/2025 9:20 AM ESTOffice Visit [facility] [address] [facility] [address] [place] [address] Mayte Stevens APRN-MAT CUTTER [address] [place] [address] 06/16/2025 1:00 PM ESTOffice Visit [facility] [place] [facility] [address] [place] [address] Jr. Fam Boyer DO [address] [place] [address] 07/20/2025 8:30 AM ESTOffice Visit [facility] [place] [facility] [address] [place] [address] Leela Schwartz MD [address] [place] [address] documented as of this encounter Visit Diagnoses Not on filedocumented in this encounter Additional Health Concerns AssessmentNoted TimePHQ-9 Depression Total Score: 5:03 PM EST documented as of this encounter Care Teams Team MemberRelationshipSpecialtyStart DateEnd Mason Johnson MD [address] [place] [address] PCP - GeneralInternal Lxzcpjgb75/11/24 Mason Johnson MD [address] [place] [address] PCP - Medical [place]07/08/2511documented as of this encounter
--- OUTSIDE RECORDS SUMMARY | 2025-04-29 12:01 | XMS_ITS | Encounter Summary ---
Author Organization [facility] Address [address] [place] [address] Care Team Providers Care Contact Center Consultant Name Role Phone Mason Johnson MD Primary Care Provider [phone] Mason Johnson MD Unavailable [phone] Encounter Details DateTypeDepartmentCare Team (Latest Contact Info)Ojykeslevcu15/22/2025amboo flowsheet [facility] [place] [facility] [address] [facility] [address] [place] [address] Jr. Fam Boyer, DO [address] [place] [address] Social History Tobacco UseTypesPacks/DayYears UsedDateSmoking Tobacco: NeverPassive [...] times a week06/10/2023How often do you attend judaism or adventism services?Never06/10/2023o you belong to any clubs or organizations such as judaism groups, unions, fraternal or athletic groups, or school groups?No 06/10/2023How often do you attend meetings of the clubs or organizations you belong to?Never06/10/2023re you , , , , never , or living with a partner?Cpellkf9006/10/2023UDIT-CAnswerDate RecordedQ1: How often do you have a drink containing alcohol?4 or more times a week 07/29/2023verage Number of DrinksNot on file07/29/2023Frequency of Binge DrinkingNot on file07/29/2023Overall Financial Resource Strain (CARDIA)Answer Date RecordedHow hard is it for you to pay for the very basics like food, housing, medical care, and heating?Very hard06/10/2023HQ-2AnswerDate Recorded Patient Health Questionnaire-2 Nhmce092Finjordan valley medical center [place] of Occupational Health - Occupational Stress QuestionnaireAnswerDate [...] RecordedSex Assigned at BirthNot on file Legal KftXben2209/19/2022 7:58 PM EDTGender IdentityNot on fileSexual Orientation Not on filedocumented as of this encounter Plan of Treatment DateTypeDepartmentCare Team (Latest Contact Info)Nlgjnkadhqq26/24/2025 11:45 AM EDTOffice Visit [facility] [place] [facility] [address] [facility] [address] [place] [address] Mason Johnson MD [address] [facility] [address] [place] [address] 05/03/2025 1:00 PM EDTOffice Visit [facility] [address] [place] [address] Michael [place], AUTO BODY STRAIGHTENER [address] [place], [place] [address] 05/25/2025 9:20 AM ESTOffice Visit [facility] [address] [facility] [address] [place] [address] Mayte Stevens APRN-CARDROOM HAND [address] [place] [address] 06/16/2025 1:00 PM ESTOffice Visit [facility] [place] [facility] [address] [place] [address] Jr. Fam Boyer DO [address] [place] [address] 07/20/2025 8:30 AM ESTOffice Visit [facility] [place] [facility] [address] [place] [address] Leela Schwartz MD [address] [place] [address] documented as of this encounter Visit Diagnoses Not on filedocumented in this encounter Additional Health Concerns AssessmentNoted TimePHQ-9 Depression Total Score: 5:03 PM EST documented as of this encounter Care Teams Team MemberRelationshipSpecialtyStart DateEnd Mason Johnson MD [address] [place] [address] PCP - GeneralInternal Ufroieac02/11/24 Mason Johnson MD [address] [place] [address] PCP - Medical [place]07/08/25[address]documented as of this encounter
--- OUTSIDE RECORDS SUMMARY | 2025-04-29 12:01 | XMS_ITS | Clinical Summary ---
Author Organization [facility] Address [address] [place] [address] Care Team Providers Care Online Communications Specialist Name Role Phone Mason Johnson MD Primary Care Provider [phone] Social History Tobacco UseTypesPacks/DayYears UsedDateSmoking Tobacco: Never AssessedSex and Gender InformationValueDate RecordedSex Assigned at BirthNot on fileLegal Sex Male01/03/2022 10:06 PM EDTGender IdentityNot on fileSexual OrientationNot on file Plan of Treatment DateTypeDepartmentCare Team (Latest Contact Info)Appumiojxjj61/10/2025 10:20 AM ESTOffice Visit [facility] [address] [place] [address] Kvng Sherwood MD [address] [place] [address] Health MaintenanceDue DateLast DoneCommentsDiabetes: Hemoglobin A1C1943 Diabetes: Retinopathy Ttzdfdowc51/26/1954Depression Imyavwppe17/26/1956 Pneumococcal Vaccine: 50+ Years (1 of 2 - PCV)10/31/1962Zoster Vaccines (1 of 2) 10/31/1962Adult Pxuhszi9210/31/1965Fall Risk Yylhquztn88/26/2009COVID-19 Vaccine (3 - Moderna risk series)103/08/2020, 08/09/2020Influenza Vaccine (#1) 501/02/2025, 06/20/2023, 05/03/2022, Additional history existsDiabetes: Urine Protein Bfpqrvfed22/HIB VaccinesAged OutNo longer eligible based on patient's age to complete this topicHPV VaccinesAged OutNo longer eligible based on patient's age to complete this topicIPV VaccinesAged OutNo longer eligible based on patient's age to complete this topicMeningococcal B VaccineAged OutNo longer eligible based on patient's age to complete this topicMeningococcal VaccineAged OutNo longer eligible based on patient's age to complete this topicRotavirus VaccinesAged OutNo longer eligible based on patient's age to complete this topic Care Teams Team MemberRelationshipSpecialtyStart DateEnd Date Mason Johnson MD [address] [place] [address] PCP - GeneralInternal Lvrgrxhr31/22/25
--- OUTSIDE RECORDS SUMMARY | 2025-04-29 12:01 | XMS_ITS | Clinical Summary ---
Author Organization [facility] Address [address] [place] [address] Care Team Providers Care Nutrition Partner Name Role Phone Mason Johnson MD Primary Care Provider [phone] Mason Johnson MD Unavailable [phone] Allergies Active AllergyReactionsCriticalityNoted DateCommentsStatinsGI intolerance 06/10/2023 Medications MedicationSigDispense QuantityRefillsLast FilledStart DateEnd DateStatus aspirin 81 MG EC tablet Take 81 mg by mouth 1 (one) time each day at the same timeActive cholecalciferol (Vitamin D-3) 25 MCG (1000 UT) tablet Take 25 mcg by mouth 1 (one) time each day at the same timeActive latanoprost (Xalatan) 0.005 % ophthalmic solution Administer 1 drop into both eyes DailyActive celecoxib (CeleBREX) 200 MG capsule Indications:Osteoarthritis, unspecified osteoarthritis type, unspecified site Take 1 capsule (200 mg) by mouth in the morning and 1 capsule (200 mg) before bedtime. 60 capsule 5Active fenofibrate micronized (Lofibra) 134 MG capsule Indications:Hyperlipidemia, unspecified hyperlipidemia typeTake 1 capsule (134 mg) by mouth Daily 100 capsule 5Active Additional Information Patient taking differently:134 mg Oral Daily,(No times of day reported), Reported on 04/20/2025 metFORMIN (Glucophage) 500 MG tablet Indications:Type 2 diabetes mellitus without complication, without long-term current use of insulin (HCC)Take 1 tablet (500 mg) by mouth Daily 100 tablet /5Active Additional Information Patient taking differently:500 mg Oral Daily,(No times of day reported), Reported on 04/20/2025 metoprolol succinate XL (Toprol-XL) 25 MG 24 hr tablet Indications:Primary hypertensionTake 1 tablet (25 mg) by mouth Daily Do not crush or chew. 90 tablet 5Active Additional Information Patient taking differently:25 mg Oral Daily,(No times of day reported), Do not crush or chew., Reported on 04/20/2025 methylPREDNISolone (Medrol Dospak) 4 MG tablets Indications:Left hip painFollow schedule on package instructions 21 tablet 5Active tiZANidine (Zanaflex) 4 MG tablet Indications:TorticollisTake 1 tablet (4 mg) by mouth in the morning and 1 tablet (4 mg) before bedtime. 60 tablet 5Active traMADol (Ultram) 50 MG tablet Indications:Pseudogout involving multiple jointsTake 2 tablets (100 mg) by mouth every 8 (eight) hours if needed for severe pain 40 tablet 10951Expired Active Problems ProblemNoted DateDiagnosed DatePseudogout involving multiple bdwenc9203/26/2025 Spondylosis of cervical region without myelopathy or gjdxmeejmjwjm70/21/2025 Primary osteoarthritis of left hip10/26/2024Separation of right acromioclavicular joint10/16/20240237Cjnleodtajgdrd39/10/2024Throat xvyeqo8612/04/2023 Neck muscle spasm11/20/2023 Assessment & Plan (11/20/2023 11:00 AM EDT): Intermittent, painful neck spasms. No aggravating or alleviating factors. Each episode lasts for a few minutes. Normal neck exam. Likely muscular spasms due to poor posture. Patient recommended to use magnesium daily and do daily neck stretching along with possibly change his pillow he sleeps on atnight. CAD (coronary artery disease)06/10/2023 Assessment & Plan (12/16/2023 9:47 AM EDT): Stable. No CP, SOB C/w ASA, Metoprolol On fenofibrate for HLD Assessment & Plan (06/10/2023 5:23 PM EST): Stable. No CP, SOB C/w ASA, Metoprolol On fenofibrate for HLD Encounter for Medicare annual wellness exam06/10/2023 Assessment & Plan (06/10/2023 5:32 PM EST): Prior hx of Colon Cancer s/p colectomy. Last Colonoscopy 2022 Flu shot - planning to receive it Pneumonia vaccine - discussed/educated. Refusing Shingles vaccine - never received it. Educated and counseled on it. 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 GERD (gastroesophageal reflux disease)01/15/2023History of AL (myocardial infarction)01/15/2023HTN (hypertension)01/15/2023 Assessment & Plan (12/16/2023 9:47 AM EDT): [...] C/w current regimen. No changes. OJEDA (nonalcoholic steatohepatitis)01/15/2023iastasis recti01/15/2023ancer of base of vlqphe5212/15/2022 Overview (01/15/2023): Diagnosed 07/31/22. Diffusely p16 positive poorly differentiated SCCA. CT shows >5 cm tongue basemass and multiple morphologically abnormal, but normal sized LN in LT zone 2. Radiation completed 10/22/22. Monthly checks began 11/2022. Metastatic cancer to cervical lymph nodes12/15/2022Stage 2 chronic kidney dpssbyt8711/01/2022 Assessment & Plan (12/16/2023 9:46 AM EDT): CKD 2, likely age related. Monitor. Avoid NSAIDS. Chemotherapy-induced lbpngjphkmo50/14/2023olon brupcr9311/19/2012 Resolved Problems ProblemNoted DateDiagnosed DateResolved DateType 2 diabetes mellitus without yonkijvcrqvum59Diastasis rectiisorder of dmyzoibh50lucose teafpajzini29History of colonic rzjfjx43History of malignant neoplasm of colon 1086Fetaeiguwpqxxwqydkrm16/11/202307/11/2023Raynaud's syndrome Vitamin D cwwmkawxkt73Overweight12/15/2022 12/15/2022cute pain of right gdhbjitg04asal cell carcinoma (BCC) of facehemotherapy-induced xgzkntfsoul83/14/2023 01/15/2023 Encounters DateTypeDepartmentCare UcotEgujpgpglkn98/23/2025Telephone [facility] [address] [place] [address] Jr. Fam Boyer, DO Lab Work04/28/2025 9:00 AM EDTOffice Visit [facility] [address] [place] [phone] Jr. Fam Boyer, DO Primary osteoarthritis of left hip (Primary Dx); Pre-op vhwozysmtv55/22/2025Telephone [facility] [address] [place] [address] Georgiana Armenta MA Hold Tvgiyr1604/28/2025amboo flowsheet [facility] [address] [place] [address] Jr. Fam Boyer, DO 04/28/20259797Vczlfn07/14/2025 8:00 AM EDTOffice Visit [facility] [place] [facility] [address] [place] [address] Leela Schwartz MD 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)04/20/2025Telephone [facility] [place] [facility] [address] [place] [address] Mason Johnson MD 04/20/2025amboo flowsheet [facility] [place] [facility] [address] [place] [address] Leela Schwartz MD 04/20/20257725Pymmtw63/13/2025Telephone [facility] [address] [place] [address] Jr. Fam Boyer, DO hip THA04/14/2025 1:15 PM EDTOffice Visit [facility] [address] [place] [address] Jr. Fam Boyer, DO Left hip pain (Primary Dx); Pseudogout involving multiple joints; Primary osteoarthritis of left hip04/14/2025 1:10 PM EDTAncillary Procedure [facility] [address] [place] [address] 04/14/2025amboo flowsheet [facility] [address] [place] [address] Jr. 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, without long-term current use of insulin (HCC); Moderate mixed hyperlipidemia not requiring statin aomipct4903/26/2025amboo flowsheet [facility] [place] [facility] [address] [place] [address] Mason Johnson MD 03/26/20255284Tbafjf97/05/2025linisync Result Encounter [facility] External Department Unsolicited Mason Johnson MD 03/01/2025Telephone [facility] [place] [facility] [address] [place] [address] Mason Johnson MD mri yowzwwd0902/11/2025bstract [facility] [place] [facility] [address] [place] [address] Mason Johnson MD 02/02/2025bstract [facility] [place] [facility] [address] [place] [address] Mason Johnson MD from Last 3 Months Immunizations ImmunizationAdministration DatesNext DueInfluenza, High Dose Seasonal, Preservative Free05/19/2019Influenza, High-dose Seasonal, Quadrivalent, Preservative Free07/15/2024Influenza, Seasonal, Quadrivalent, Adjuvanted 06/20/2023,05/03/2022,06/15/2021Influenza, injectable, MDCK, preservative free, nzoqexefjeiz07/18/2018Influenza, seasonal, qqkpdjmxik15/01/2022Influenza, seasonal, injectable, preservative free06/21/2015Novel mhakahhcg-C6N5-57, preservative-free06/20/2009 Family History * Patient is adopted Medical HistoryRelationNameCommentsNo Known ProblemsFatherNo Known Problems MotherRelationNameStatusCommentsFatherMother Social History Tobacco UseTypesPacks/DayYears UsedDateSmoking Tobacco: NeverPassive [...] times a week06/10/2023How often do you attend hoahaoism or scientologist services?Never06/10/2023o you belong to any clubs or organizations such as hoahaoism groups, unions, fraternal or athletic groups, or school groups?No 06/10/2023How often do you attend meetings of the clubs or organizations you belong to?Never06/10/2023re you , , , , never , or living with a partner?Momzuyy4306/10/2023UDIT-CAnswerDate RecordedQ1: How often do you have a drink containing alcohol?4 or more times a week 07/29/2023verage Number of DrinksNot on file07/29/2023Frequency of Binge DrinkingNot on file07/29/2023Overall Financial Resource Strain (CARDIA)Answer Date RecordedHow hard is it for you to pay for the very basics like food, housing, medical care, and heating?Very hard06/10/2023HQ-2AnswerDate Recorded Patient Health Questionnaire-2 Lpjfe176Finhe[facility] [place] of Occupational Health - Occupational Stress QuestionnaireAnswerDate [...] steady place to sleep or [facility] (including now)?No06/10/2023 Sex and Gender InformationValueDate RecordedSex Assigned at BirthNot on file Legal EhuYwjm0209/19/2022 7:58 PM EDTGender IdentityNot on fileSexual Orientation Not on file Last Filed Vital Signs Vital SignReadingTime TakenCommentsBlood Uvckggfy317/9304/20/2025 8:00 AM EDT Eyrom210004/20/2025 8:00 AM ENPHamfkxcnytm54.4 ??C (97.5 ??F)12/16/2023 9:07 AM EDTRespiratory Rate--Oxygen Fiiljnyyfg39%03/26/2025 10:56 AM EDTInhaled Oxygen Concentration--Swebat73.7 kg (200 lb)04/20/2025 8:00 AM VEZWewgve715.2 cm (5' 7 )04/20/2025 8:00 AM EDTBody Mass Index31.321 8:00 AM EDT Plan of Treatment DateTypeDepartmentCare Team (Latest Contact Info)Orksowzynho69/24/2025 11:45 AM EDTOffice Visit [facility] [place] [facility] [address] [facility] [address] [place] [phone] Mason Johnson MD [address] [facility] [address] [place] [address] 05/03/2025 1:00 PM EDTOffice Visit [facility] [address] [place] [phone] Michael Murray NP [address] [place], [place] [address] 05/25/2025 9:20 AM ESTOffice Visit [facility] [address] [place] [phone] Mayte Stevens, RAMP MANAGER-CERTIFIED HOME HEALTH AIDE [address] [place] [address] 06/16/2025 1:00 PM ESTOffice Visit [facility] [place] [facility] [address] [place] [phone] Jr. Fam Boyer, DO [address] [place] [address] 07/20/2025 8:30 AM ESTOffice Visit [facility] [place] [facility] [address] [facility] [address] [place] [phone] Leela Schwartz MD [address] [facility] [address] [place] [address] Health MaintenanceDue DateLast DoneCommentsPneumococcal Vaccine: 65+ Years (1 of 2 - PCV)10/31/1962Diabetes: Retinopathy Bmzwxvsqf10/01/789997/07/2022Influenza Vaccine (#1)501/02/2025, 06/20/2023, 05/03/2022, Additional history existsDiabetes: Hemoglobin A1C506/10/2024, 08/31/2024, 11/20/2023, Additional history existsMedicare Annual Wellness (AWV)6008/31/2024, 3Diabetes: Urine Protein Zcjfmieyk29/, 02/06/2023, 02/06/2023 Procedures Procedure NamePriorityDate/TimeAssociated DiagnosisCommentsXR HIP 2 OR 3 VW LEFT Yfscbra3604/14/2025 1:06 PM EDT Left hip pain COMPREHENSIVE METABOLIC ISEEXQvutbpu63/19/2025 11:19 AM EDT Primary hypertension 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, without long-term current use of insulin (HCC) Moderate mixed hyperlipidemia not requiring statin therapy MICROALBUMIN / CREATININE URINE METHNZjxiuuw65/19/2025 11:19 AM EDT Primary hypertension 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, without long-term current use of insulin (HCC) Moderate mixed hyperlipidemia not requiring statin therapy LIPID GYTOQCccuuwd78/19/2025 11:19 AM EDT Primary hypertension 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, without long-term current use of insulin (HCC) Moderate mixed hyperlipidemia not requiring statin therapy MR HIP LEFT WO IV DOUWNBYS59/05/2025 3:44 PM EDT POCT GLYCATED HEMOGLOBIN, UPAVQRzythkx96/04/2025 11:30 AM EDT Inflammatory arthritis from Last 3 Months or Most Recently Relevant to Health Maintenance Results * XR hip left 2 or 3 views (04/14/2025 1:06 PM EDT)Anatomical RegionLaterality ModalityLower Extremities, HipLeftRadiographic ImagingSpecimen (Source) Anatomical Location / LateralityCollection Method / VolumeCollection Time Received Time Narrative 04/14/2025 1:48 PM EDT Imaging Result: Multiple views of left hip showed severe degenerative joint disease with near complete obliteration of the joint space articulation between the femoral head and acetabulum. ??There is flattening of the articular surfaces to both femoral and acetabular surfaces. ??There was marginal osteophytic formation noted. ??The both femoral and acetabular joint surfaces. ??There was no acute bony process including but not limited to, fracture and/or dislocation. ??Impression: Moderate to severe degenerative joint disease, left hip Authorizing ProviderResult TypeResult StatusJr. Fam Boyer DOI XR PROCEDURESFinal Result * Microalbumin / creatinine, urine ratio (03/26/2025 11:19 AM EDT)ComponentValue Ref RangeTest MethodAnalysis TimePerformed AtPathologist SignatureCREATININE, RANDOM PVUBP5502 - 320 mg/dLQUESTALBUMIN, URINE0.8See Note: mg/dLQUESTComment: Reference Range: Reference Range Not established ALBUMIN/CREATININE RATIO, RANDOM URINE11<30 mg/g creatQUESTComment: The ADA defines abnormalities in albumin excretion as follows: Albuminuria Category ?Result (mg/g creatinine) Normal to Mildly increased <30 Moderately increased ? 30-299 Severely increased > OR = 300 The ADA recommends that at least two of three specimens collected within a 3-6 month period be abnormal before considering a patient to be within a diagnostic category. Specimen (Source)Anatomical Location / LateralityCollection Method / Volume Collection TimeReceived TimeUrineUrine specimen obtained by clean catch procedure / Ojgatwi3203/26/2025 11:19 AM EDT03/26/2025 11:20 AM EDT Narrative [facility] - 03/27/2025 12:54 PM EDT FASTING:YES FASTING: YES Resulting Agency Comment Performing Organization Information ?Site ID: QPT ?Name: [facility] ?Address: [address] [place] [address], [address] [place] [phone] ?Director: Maged Olson MD Authorizing ProviderResult TypeResult StatusDalaron Johnson MDLAB URINE ORDERABLESFinal ResultPerforming OrganizationAddressCity/State/ZIP CodePhone Number [facility] * Lipid panel (03/26/2025 11:19 AM EDT)ComponentValueRef RangeTest Method Analysis TimePerformed AtPathologist SignatureCHOLESTEROL, TLWGH534<200 mg/dL QUESTHDL KJCLVPSYSQB93> OR = 40 mg/aYVVWIUBXBOUDZMIRNCR08<150 mg/dLQUESTLDL IHSHNIKPAAK41tx/dL (calc)QUESTComment: Reference range: <100 Desirable range <100 mg/dL for primary prevention; <70 mg/dL for patients with CHD or diabetic patients with > or = 2 CHD risk factors. LDL-C is now calculated using the Beto calculation, which is a validated novel method providing better accuracy than the Friedewald equation in the estimation of LDL-C. Monroe GAN et al. TITI. 2013;310(19): 2792-4039 (http://education.Asurint.Dotspin/faq/PVU864) CHOL/HDLC RATIO2.8<5.0 (calc)QUESTNON HDL WQSGBKCAIIP64<130 mg/dL (calc)[facility] Comment: For patients with diabetes plus 1 major ASCVD risk factor, treating to a non-HDL-C goal of <100 mg/dL (LDL-C of <70 mg/dL) is considered a therapeutic option. Specimen (Source)Anatomical Location / LateralityCollection Method / Volume Collection TimeReceived TimeBloodVenous blood specimen / Gltjnvh7203/26/2025 11:19 AM EDT03/26/2025 11:20 AM EDT Narrative [facility] - 03/27/2025 12:54 PM EDT FASTING:YES FASTING: YES Resulting Agency Comment Performing Organization Information ?Site ID: QPT ?Name: [facility] ?Address: [address] [place] [address], [address] [place] [phone] ?Director: Maged Olson MD Authorizing ProviderResult TypeResult StatusDalaron Johnson MDLAB BLOOD ORDERABLESFinal ResultPerforming OrganizationAddressCity/State/ZIP CodePhone Number [facility] * (ABNORMAL) Comprehensive metabolic panel (03/26/2025 11:19 AM EDT)Component ValueRef RangeTest MethodAnalysis TimePerformed AtPathologist SignatureGlucose 183(H)65 - 99 mg/dLQUESTComment: ? Fasting reference interval For someone without known diabetes, a glucose value >125 mg/dL indicates that they may have diabetes and this should be confirmed with a follow-up test. RRW278 - 25 mg/dLQUESTCreatinine1.28(H)0.70 - 1.22 mg/bUWDTQWORCX50(L)> OR = 60 mL/min/1.78k8KGJBCGZJ/CREATININE LFPXC155 - 22 (calc)JGZMVCciqjm987328 - 146 mmol/LQUESTPotassium, Bld4.33.5 - 5.3 mmol/ENLAQQOytepunh87930 - 110 mmol/LQUEST Carbon Becazmv7156 - 32 mmol/LQUESTCalcium9.18.6 - 10.3 mg/dLQUESTPROTEIN, TOTAL 6.56.1 - 8.1 g/dLQUESTALBUMIN4.03.6 - 5.1 g/dLQUESTGLOBULIN2.51.9 - 3.7 g/dL (calc)QUESTALBUMIN/GLOBULIN RATIO1.61.0 - 2.5 (calc)QUESTBILIRUBIN, TOTAL1.00.2 - 1.2 mg/dLQUESTALKALINE VNTMEJZABLQ6160 - 144 U/MZMPKEFYI4325 - 35 U/LQUESTALT 49(H)9 - 46 U/LQUESTSpecimen (Source)Anatomical Location / LateralityCollection Method / VolumeCollection TimeReceived TimeBloodVenous blood specimen / Unknown 03/26/2025 11:19 AM EDT03/26/2025 11:20 AM EDT Narrative [facility] - 03/27/2025 12:54 PM EDT FASTING:YES FASTING: YES Resulting Agency Comment Performing Organization Information ?Site ID: QPT ?Name: [facility] ?Address: [address] [place] [address], [address] [place] [phone] ?Director: Maged Olson MD Authorizing ProviderResult TypeResult StatusDalaron Johnson MDLAB BLOOD ORDERABLESFinal ResultPerforming OrganizationAddressCity/State/ZIP CodePhone Number [facility] * MR hip left wo IV contrast (03/12/2025 3:44 PM EDT)Anatomical RegionLaterality ModalityLower Extremities, HipLeftMagnetic ResonanceSpecimen (Source) Anatomical Location / LateralityCollection Method / VolumeCollection Time Received Time03/12/2025 3:44 PM EDT Narrative 03/12/2025 3:46 PM EDT [facility] ?[address] ? [place] [address] ? Magnetic Resonance Report ? Signed ? Patient: ANN ROOT ?MR#: [id number] ?? : 1945 ?Acct:[id number] ?? Age/Sex: 79 / M ?ADM Date: 03/12/25 ?? Loc: MRI ? Attending Dr: MASON JOHNSON ? Ordering Physician: MASON JOHNSON ?? Date of Service: 03/12/25 ?? Procedure(s): MR hip LT wo con ?? Accession Number(s): [id number] ? cc: MASON JOHNSON ? [facility] ? [address] ? [place] [address] ? Patient Name: ?? ANN Yi ROOT ? MRN: [id number] ? date: 1945 ?Sex: M ?? Assigned Patient Location: MRI ?? Current Patient Location: MRI ?? Accession/Order Number: [id number] ?? Exam Date: 03/12/2025 ??10:00 ?Report Date: 03/12/2025 ??15:44 ? At the request of: ?? MASON ??TEREZA ? Procedure: ??MR hip LT wo con ? MR hip LT wo con ??03/12/2025 11:18 AM ? SIGNS AND SYMPTOMS: Primary Osteoarthritis Left Hip, Left Hip Pain ? PROTOCOL: Multiplanar multisequence MR images of the left hip without contrast ? COMPARISON: 10/13/2024 ? FINDINGS: ? Alignment: Normal ? Femoroacetabular impingement anatomy: None. ? Dysplasia: None. ? Fluid: There is a small joint effusion.. ?? Labrum: Incompletely evaluated. ??The labrum is irregular in signal intensity(l ?? suspicious for a chronic degenerative process.. ? Cartilage: ? Femoral: There is full thickness chondromalacia which is most notable along ?? the superior articular surface. ??There is underlying subchondral cystic change ?? and edema. ?? Acetabular: There is full thickness chondromalacia in the roof of the ?? acetabulum anteriorly with underlying subchondral cystic change and edema. ? Capsule/ligaments: Normal. ? Muscles/tendons/entheses: ?? Flexors: Normal. ?? Extensors: Normal. ?? Abductors: Normal. ?? Adductors: Normal. ?? Rotators: Normal. ?? Hamstrings: Edema is noted at the hamstrings origins suggesting tendinopathy. ? Bones (other than subarticular marrow): Normal. ?? Vessels: Normal. ?? Nerves: Visualized left sciatic and femoral nerves appear normal. ?? Soft tissues: Normal. ? Viscera: Visualized pelvic structures appear normal. No lymphadenopathy by ?? size criteria. No free fluid in the pelvis. ? MR/MR hip LT wo con ?? IMPRESSION: ? 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 noted on both sides of the joint space. ? Irregular signal intensity is noted along the superior glenoid labrum ?? presumably relating to a chronic degenerative process ? Edema is noted at the hamstrings origins suggesting tendinopathy. ? Impression dictated by: El Burnett M.D. ??03/12/2025 3:44 PM ? Dictation Location: RADIO-PC-23 ? Electronically authenticated by: [id number] ??Y ?? Date: 03/12/2025 ??15:44 ? Dictated By: ?El Burnett M.D. ? Signed By: ?03/12/25 1546 ? DD/ 1544 ? TD/TT: ? Refurbish Technician: Procedure Note Radiology, Radiologist, MD - 03/12/[address] [address] Magnetic Resonance Report Signed Patient: ANN ROOT DMR#: [id number] : 1945cct:[id number] Age/Sex: 79 / MADM Date: 03/12/25 Loc: MRI Attending Dr: MASON JOHNSON Ordering Physician: MASON JOHNSON Date of Service: 03/12/25 Procedure(s): MR hip LT wo con Accession Number(s): [id number] cc: MASON JOHNSON [place] [id number] Patient Name: ANN ROOT MRN: [id number] date: 1945 Sex: M Assigned Patient Location: MRI Current Patient Location: MRI Accession/Order Number: [id number] Exam Date: 03/12/2025 10:00 Report Date: 03/12/2025 15:44 At the request of: MASON JOHNSON Procedure: MR hip LT wo con MR hip LT wo con 03/12/2025 11:18 AM SIGNS AND SYMPTOMS: Primary Osteoarthritis Left Hip, Left Hip Pain PROTOCOL: Multiplanar multisequence MR images of the left hip withoutcontrast COMPARISON: 10/13/2024 FINDINGS: Alignment: Normal Femoroacetabular impingement anatomy: None. Dysplasia: None. Fluid: There is a small joint effusion.. Labrum: Incompletely evaluated. The labrum is irregular in signalintensity(l suspicious for a chronic degenerative process.. Cartilage: Femoral: There is full thickness chondromalacia which is most notablealong the superior articular surface. There is underlying subchondral cysticchange and edema. Acetabular: There is full thickness chondromalacia in the roof of the acetabulum anteriorly with underlying subchondral cystic change and edema. Capsule/ligaments: Normal. Muscles/tendons/entheses: Flexors: Normal. Extensors: Normal. Abductors: Normal. Adductors: Normal. Rotators: Normal. Hamstrings: Edema is noted at the hamstrings origins suggestingtendinopathy. Bones (other than subarticular marrow): Normal. Vessels: Normal. Nerves: Visualized left sciatic and femoral nerves appear normal. Soft tissues: Normal. Viscera: Visualized pelvic structures appear normal. No lymphadenopathy by size criteria. No free fluid in the pelvis. 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 Irregular signal intensity is noted along the superior glenoid labrum presumably relating to a chronic degenerative process Edema is noted at the hamstrings origins suggesting tendinopathy. Impression dictated by: El Burnett M.D. 03/12/2025 3:44 PM Dictation Location: [place] [address] Electronically authenticated by: [id number] Y Date: :44 Dictated By: El Burnett M.D. Signed By:03/12/25 1546 DD/ 1544 TD/TT: Refurbish Technician: Authorizing ProviderResvanessa TypeResult Chris Johnson MDIMG MRI PROCEDURES Final Result * POCT Glycated hemoglobin, total (12/09/2024 11:30 AM EDT)ComponentValueRef RangeTest MethodAnalysis TimePerformed AtPathologist SignatureHemoglobin A1C 7.1Specimen (Source)Anatomical Location / LateralityCollection Method / Volume Collection TimeReceived WryqDlpqf51/04/2025 11:30 AM EDT Narrative Authorizing ProviderResult TypeResult Chris Johnson MDPOINT OF CARE TEST ENTER/EDIT ORDERABLESFinal Result from Last 3 Months or Most Recently Relevant to Health Maintenance Insurance Care Teams Team MemberRelationshipSpecialtyStart DateEnd Date Mason Johnson MD [address] [facility] [address] [place] [address] PCP - GeneralInternal Fpqbdjne47/11/24 Mason Johnson MD [address] [facility] [address] [place] [address] PCP - Medical [facility]07/08/2511
--- OUTSIDE RECORDS SUMMARY | 2025-04-29 12:04 | XMS_ITS | CCD ---
Author Organization [facility] Care Team Providers Care Agricultural Research Engineer Name Role Phone MANNIE NELSON Primary Care [...] Primary Care Provider Louise EVERETT, Dee Unavailable [phone] Jacquelyn WELCH, John Unavailable [phone] Surinder WAGNERN.ARTIST AND REPERTOIRE MANAGER, Natalie Unavailable Paulino HORNER, Rafael Unavailable Yordan Feliz MD Unavailable Marysol Martinez Unavailable Unavailable Candida RD, Dee Unavailable Vidal WELCH, [facility] Primary Care Provider Candida RD, Dee Unavailable Paulino RN, Rafael Unavailable Vidal WELCH, [facility] Primary Care Provider Mannie Nelson MD Primary Care Provider Unallocatkira WELCH, [place] Provider Primary Care Provi vidhya Alex OLIVAS MD, Daniel B Primary Care Provider [phone] Mason Johnson MD Primary Care Provider Vidal WELCH, [facility] Primary Care Provider Mason Johnson MD Unavailable ABHYANKAR, JOHN Attending Unavailable ABHYANKAR, JOHN [...] MASON B Primary Care Unavailable JOHNSON II, AMSON B Primary Care Unavailable ABHYANKAR, JOHN Referring Unavailable JOHNSON, MASON B Attending Unavailable BARRY STEVENS Attending Unavailable JOHNSON, MASON B Referring Unavailable JOHNSON, MASON B Attending Unavailable SERENE MORALES Attending Unavailable JOHNSON, MASON B Attending Unavailable JOHNSON, MASON B Attending Unavailable JOHNSON, MASON B Attending Unavailable JOHNSON, MASON B Attending Unavailable JOHNSON, MASON B Attending Unavailable SERENE MORALES H Attending Unavailable JOHNSON, MASON B Attending Unavailable JR. BOYER GEORGE C Attending Unavaila MASON Campos Referring Unavailable JR. BOYER GEORGE C Referring Unavaila SERENE Jiang Attending Unavailable SERENE MORALES Attending Unavailable BARRY STEVENS Attending Unavailable SERENE MORALES Attending Unavailable SERENE MORALES Attending Unavailable Allergies Allergy ClassificationReported Allergen(s)Allergy TypeDate of OnsetReaction(s) Facility (1 source)No Known Medication Allergies; Translations: [No Known Medication Allergies]Propensity to adverse reactions (disorder)[facility] Repository (20 sources)HMG-CoA reductase inhibitorPropensity to adverse zmlmcpbbi71-82-6065 GI intoleranceNOIN Healthcare Work Phone: Medications Current Medications MedicationDrug Class(es)DatesSig (Normalized)Sig (Original)aspirin 81 mg delayed release oral tablet (20 sources)Platelet Aggregation Inhibitor, Nonsteroidal Anti-inflammatory Drug Start: 65-70-9047nffn 1 tablet by mouth once dailyaspirin 81 mg Oral EC Tab 81 mg = 1 tab(s), Oral, Daily, Refills(s) 0 Start Date: 04/18/20 Status: Ordered Aspirin 81 mg tab 81 mg every other day. Activetake 1 tablet by mouth once daily Aspirin 81 mg tab Take 81 mg by mouth once daily. 0 ActiveComment on above:Take 81 mg by mouth once daily.81 mg every other day.cefuroxime 500 mg oral tablet (5 sources)Cephalosporin AntibacterialStart: 10-01-2022 End: 46-84-5102jipd 1 tablet by mouth twice dailycefUROXime (CEFTIN) 500 mg tablet Take 1 tablet by mouth twice daily for 10 days. 20 tablet 0 10/01/2022 10/11/2022 ActiveComment on above:Take 1 tablet by mouth twice daily for 10 days.celecoxib 200 mg oral capsule (20 sources)Nonsteroidal Anti-inflammatory DrugStart: 10-12-2024 End: 13-54-4346gkxy 1 capsule by mouth in the morningcelecoxib (CeleBREX) 200 MG capsule Indications: Osteoarthritis, unspecified osteoarthritis type, un specified site Take 1 capsule (200 mg) by mouth in the morning and 1 capsule (200 mg) before bedtime. 60 capsule 6 11/11/2024 06/09/2025 Active cholecalciferol 1.25 mg oral capsule (20 sources)Vitamin DStart: 86-49-5325jisw 1 capsule by mouth every week cholecalciferol, Vitamin D3, (VITAMIN D3) 1,250 mcg (50,000 unit) cap capsule Take 1 capsule by mouth one time a week. 10/01/2023 Activetake 1 tablet by mouth once dailycholecalciferol (Vitamin D-3) 25 MCG (1000 UT) tablet Take 25 mcg by mouth 1 (one) time each day atthe same time ActiveComment on above:Take 1 capsule by mouth one time a week.ergocalciferol 1.25 mg oral capsule (20 sources)Provitamin D2 CompoundStart: 14-58-2481ojaq 1 capsule by mouth every weekergocalciferol 50,000 unit capsule (VITAMIN D2, DRISDOL) TAKE 1 CAPSULE BY MOUTH WEEKLY 07/05/2022 ActiveComment on above:TAKE 1 CAPSULE BY MOUTH WEEKLY fenofibrate 134 mg oral capsule (20 sources)Peroxisome Proliferator Receptor alpha AgonistStart: 70-33-5659slmw 1 capsule by mouth once dailyfenofibrate micronized (Lofibra) 134 MG capsule Indications: Hyperlipidemia, unspecified hyperlipidemia type Take 1 capsule (134 mg) by mouth Daily 100 capsule 3 12/04/2024 ActiveStart: 23-19-9832Njvaokwapvg Micronized Active MG PO April 07, 2024 12:00amStart: 20-72-0835kcrm 1 capsule by mouth once dailyfenofibrate micronized (Lofibra) 134 MG capsule Indications: Hyperlipidemia, unspecified hyperlipidemia type (CMS/HCC) Take 1 capsule (134 mg) by mouth Daily 90 capsule 1 12/16/2023 ActiveComment on above:Take 134 mg by mouth once daily.iv contrast (will be provided with radiology test) (10 sources)Start: 11-04-2024 End: 16-09-8028sshkuv 1 dose intravenously once, then inject 1 dose intravenously onceiv contrast (will be provided with radiology test) Indications: 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 Discontinue saline lock post exam. If Pt. has a central line or IVAD, may access for administration according to line specific nursing protocol. Onceexam is complete flush line and de-access according to line specific nursing protocol in the CT contrast administration guidelines link. 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 Discontinue saline lock post exam. If Pt. has a central line or IVAD, may access for administration according to line specific nursing protocol. Onceexam is complete flush line and de-access according to line specific nursing protocol in the CT contrast administration guidelines link. 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 Discontinue saline lock postexam. If Pt. has a central line or IVAD, may access for administration according to line specific nursing protocol. Once exam is complete flush line and de-access according to line specific nursing protocol in the CT contrast administration guidelines link. 1 Each 0 10/23/2023 10/24/2023 ActiveStart: 10-23-2023 End: 11-70-5718yrkkcc 1 dose intravenously once, then inject 1 dose intravenously onceiv contrast (will be provided with radiology test) [...] guidelines link. 1 Each 0 10/23/2023 10/23/2023 ExpiredStart: 03-20-2023 End: 33-83-9983mu contrast (will be provided with radiology test) [...] guidelines link. 1 Each 0 03/20/2023 03/21/2023 ActiveStart: 02-06-2023 End: 75-37-0419iu contrast (will be provided with radiology test) CT Chest W - Inject, intravenously, once for 1 dose.No IV access, insert saline lock prior to the beginning of sedation, infusion, injection of imaging exam. Discontinue saline lock post exam. If Pt. has a central line or IVAD, may access for adminis tration according to line specific nursing protocol. Once exam is complete flush line and de-accessaccording to line specific nursing protocol in the CT contrast administration guidelines link. 1 Each 0 02/06/2023 02/07/2023 ActiveComment on above:CT Chest W -Inject, intravenously, once for 1 [...] nursing protocol in theCT contrast administration guidelines link.Inject 1 Each intravenously one time only for [address] Neck W IVCON No IV access, insert saline lock prior to the sedation, infusion, injection for imaging exam. Discontinue saline lock post exam. If Pt. has a central line or IVAD, may access for administration according to line specific nursing protocol. Once exam is complete flush line and de- access according to line specific nursing protocolin the CT contrast administration guidelines link.latanoprost 0.05 mg/ml ophthalmic solution (20 sources)Prostaglandin AnalogStart: 38-13-7764rgmn 1 drop(s) into the eye(s) at bedtimelatanoprost (XALATAN) 0.005 % ophthalmic solution instill 1 (ONE) DROP IN BOTH EYES AT BEDTIME 05/01/2023 Activetake 1 drop(s) into the eye(s) once dailylatanoprost (Xalatan) 0.005 % ophthalmic solution Administer 1 drop into both eyes Daily ActiveComment on above:instill 1 (ONE) DROP IN BOTH EYES AT BEDTIMEmetFORMIN hydrochloride 500 mg oral tablet (20 sources)BiguanideStart: 06-12-2022 End: 45-18-6258ndxf 1 tablet by mouth once dailymetFORMIN (Glucophage) 500 MG tablet Indications: Type 2 diabetes mellitus without complication, without long- term current use of insulin (HCC) Take 1 tablet (500 mg) by mouth Daily 100 tablet 3 12/04/2024 06/02/2025 ActiveStart: 42-08-3163epjv 2 tablets by mouth once daily in the morning, then take 1 tablet by mouth in the eveningmetFORMIN (GLUCOPHAGE) 500 mg tablet TAKE 2 TABLETS BY MOUTH EVERY MORNING and TAKE 1 TABLET BY MOUTH IN THE EVENING 0 06/12/2022 ActiveStart: 52-72-2950kfnx 1 tablet by mouth in the eveningmetFORMIN (GLUCOPHAGE) 500 mg tablet Take 500 mg by mouth as directed. 1 AM/1 PM 0 06/12/2022 ActiveComment on above:TAKE 2 TABLETS BY MOUTH EVERY MORNING and TAKE 1 TABLET BY MOUTH IN THE EVENINGTake 500 mg by mouth as directed. 1 AM/1 PMTake 500 mg by mouth once daily.methylPREDNISolone (12 sources)CorticosteroidStart: 65-01-7243mffqvxXBOZNMHeyzpl (Medrol Dospak) 4 MG tablets Indications: Left hip pain Follow schedule on package instructions 21 tablet 04/14/2025 ActiveStart: 12-09-2024 End: 60-04-8172rmwwhdKIVLGKKcjqbs (Medrol Dospak) 4 MG tablets Indications: Inflammatory arthritis Follow scheduleon package instructions 21 tablet 12/09/2024 12/28/2024 Discontinued (Therapy completed)Start: 12-09-2024 End: 79-05-7183kxfmkbUFCSULCclkhi (Medrol Dospak) 4 MG tablets Indications: Inflammatory arthritis Follow scheduleon package instructions 21 tablet 12/09/2024 12/16/2024 Fopgkw17 hr metoprolol succinate 25 mg extended release oral tablet (20 sources)beta-Adrenergic BlockerStart: 58-32-8133oqml 1 tablet by mouth once dailymetoprolol succinate XL (Toprol-XL) 25 MG 24 hr tablet Indications: Primary hypertension Take 1 tablet (25 mg) by mouth Daily Do not crush or chew. 90 tablet 3 12/10/2024 ActiveStart: 50-99-4381Zsrwngvhkr Succinate Active MG PO April 07, 2024 12:00amStart: 06-12-2022 End: 71-41-8962iupo 1 tablet by mouth once dailymetoprolol succinate XL (Toprol- XL) 25 MG 24 hr tablet Indications: Primary hypertension (CMS/HCC) TAKE 1 TABLET BY MOUTH DAILY at the same time each day 90 tablet 1 05/18/2024 ActiveStart: 69-26-1469lxlw 1 tablet by mouth once dailyMetoprolol succinate 25 mg ER Tablet 1 tab, Oral, Daily, Refills(s) 0 Start Date: 04/18/20 Status: OrderedComment on above:Take 25 mg by mouth once daily.tiZANidine 4 mg oral tablet (9 sources)Central alpha-2 Adrenergic AgonistStart: 00-74-3962lxql 1 tablet by mouth in the morningtiZANidine (Zanaflex) 4 MG tablet Indications: Torticollis Take 1 tablet (4 mg) by mouth in the morning and 1 tablet (4 mg) before bedtime. 60 tablet 3 04/21/2025 ActiveStart: 08-31-2024 End: 87-11-7640evng 1 tablet by mouth in the morningtiZANidine (Zanaflex) 4 MG tablet Indications: Torticollis Take 1 tablet (4 mg) by mouth in the morning and 1 tablet (4 mg) before bedtime. 60 tablet 3 08/31/2024 10/12/2024 Discontinued (Side effects)traMADol hydrochloride 50 mg oral tablet (9 sources)Opioid AgonistStart: 03-26-2025 End: 16-48-2669dzcr 2 tablets by mouth every eight hours for paintraMADol (Ultram) 50 MG tablet Indications: Pseudogout involving multiple joints Take 2 tablets (100 mg) by mouth every 8 (eight) hours if needed for severe pain 40 tablet 1 03/26/2025 04/25/2025 Active Completed/Discontinued Medications MedicationDrug Class(es)DatesSig (Normalized)Sig (Original)atenolol 25 mg oral tablet (4 sources)beta-Adrenergic BlockerStart: 11-12-2012 End: 64-65-7973ebuu 1 tablet by mouth once dailyATENOLOL 25 mg tablet Take 25 mg by mouth once daily. 0 11/12/2012 08/16/2022 Discontinued (Discontinued by another Health Care Provider)Comment on above:Take 25 mg by mouth once daily. ciprofloxacin 500 mg oral tablet (7 sources)Quinolone AntimicrobialStart: 10-19-2022 End: 56-43-0509egfl 1 tablet by mouth twice dailyciprofloxacin HCl (CIPRO) 500 mg tablet Take 1 tablet by mouth twice daily for 14 days. 28 tablet 11/02/2022 ExpiredComment on above:Take 1 tablet by mouth twice daily for 14 days.Magnesium (17 sources) End: 93-67-7357Yyyfdjuch 400 MG capsule Take by mouth 05/19/2024 Discontinued (Therapy completed)Magnesium 400 MG capsule Take by mouth Activeondansetron 8 mg oral tablet (20 sources)Serotonin-3 Receptor AntagonistStart: 08-21-2022 End: 84-92-0954zcmy 1 tablet by mouth every eight hours as neededondansetron (ZOFRAN) 8 mg tablet Take 1 tablet by mouth every 8 hours as needed for nausea/vomiting. 90 tablet 1 08/21/2022 05/08/2023 Discontinued (Discontinued by Patient)Comment on above:Take 1 tablet by mouth every 8 hours as needed for nausea/vomiting.prochlorperazine 10 mg oral tablet (20 sources)PhenothiazineStart: 08-21-2022 End: 09-43-9528qscy 1 tablet by mouth every six hours as neededprochlorperazine (COMPAZINE) 10 mg tablet Take 1 tablet by mouth every 6 hours as needed. 100 tablet 1 08/21/2022 05/08/2023 Discontinued (Discontinued by Patient)Comment on above:Take 1 tablet by mouth every 6 hours as needed. Problems Active Problems Problem ClassificationProblemDateDocumented DateEpisodic/Chronic Administrative/social admission (4 sources)Patient encounter status; Translations: [Other specified counseling] 70-80-0946AcjlcxutUguezpri of urinary tract (1 source)Personal history of urinary calculi; Translations: [PERSONAL HISTORY OF URINARY CALCULI]Onset: 14-79-8562VhtasnubSpfjtw of colon (20 sources)Malignant tumor of colon; Translations: [Malignant neoplasm of colon, unspecified]Onset: 11-19-2012 Resolved: 173038-58-8503HrwwyrzNmkocw of head and neck (20 sources)Malignant neoplasm of base of tongue; Translations: [Malignant tumor of tongue]Onset: 69-05-7920WohggkhTooycwm kidney disease (20 sources)Chronic kidney disease stage 3; Translations: [Stage 3 chronic kidney disease, unspecified whether stage 3a or 3b CKD (HCC)]Onset: 2022 ChronicChronic kidney disease (1 source)Chronic kidney disease; Translations: [Stage 3 chronic kidney disease, unspecified whether stage 3aor 3b CKD (HCC)]Onset: 22-21-4051Rdfoagcb atherosclerosis and other heart disease (20 sources)History of myocardial infarction; Translations: [Atherosclerotic heart disease of [place] coronary artery without angina pectoris]Onset: 024482-66-7802ByloeeoBwiljqil mellitus with complications (8 sources)Type 2 diabetes mellitus well controlled; Translations: [Type 2 diabetes mellitus with diabetic chronic kidney disease]Onset: 01-15-2023 83-04-8650MsyjfmnKduabjzc of white blood cells (20 sources)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; Translations: [Agranulocytosis secondary to cancer chemotherapy]Onset: 10-19-2022 Resolved: 08-72-8417MwzpbrpBvxcbhqwj of lipid metabolism (20 sources)Hypercholesterolemia; Translations: [Pure hypercholesterolemia, unspecified]Onset: 08-03-2022 Resolved: 014080-69-0570YaetumkTsfnzkxuee disorders (20 sources)Gastroesophageal reflux disease; Translations: [Gastro-esophageal reflux disease without esophagitis]Onset: 771517-74-7081ByvtjcbOdeuktvgn hypertension (20 sources)Hypertensive disorder; Translations: [Essential (primary) hypertension]Onset: 281496-74-3473DieifriVtqujvovencwg symptoms and ill- defined conditions (2 sources)Genuine stress incontinence; Translations: [Stress incontinence (female) (male)]81-64-5984UryicguKmmd and other crystal arthropathies (16 sources)Pyrophosphate arthritis; 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, multiple sites]Onset: 529031-07-7349NwphparKqsuerajw (20 sources)Nonalcoholic steatohepatitis; Translations: [Nonalcoholic steatohepatitis (OJEDA)]Onset: 514029-09-2271NlnbemxTuwcgjhgvkscc and screening for infectious disease (1 source)Vaccination needed; Translations: [Encounter for immunization] 82-30-8509BigiismvEibnihopexgswp (20 sources)Osteoarthritis; Translations: [Unspecified osteoarthritis, unspecified site]Onset: 201149-47-9711KzgasmpAoiqs aftercare (1 source)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; Translations: [TOWEL HEMMER CURRNT USE ANTICOAGULANTS]Onset: 19-50-3978GouecnieJorzh aftercare (1 source)[facility] (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 of oral hypoglycemic drugs; Translations: [[facility] USE ORAL HYPOGLYCEMIC DX]Onset: 35-99-5588VmdzlloeAkpnt aftercare (1 source)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; Translations: [TOWEL HEMMER CURRENT USE OF ASPIRIN]Onset: 72-05-5143GhltcokhUufoe and unspecified benign neoplasm (1 source)Personal history of colonic polyps; Translations: [PERSONAL HISTORY OF COLONIC POLYPS]Onset: 98-85-8115EtsmxigsVtmcj and unspecified benign neoplasm (1 source)Benign neoplasm of ascending colon; Translations: [BENIGN NEOPLASM OF ASCENDING COLON]Onset: 07-62-5692EudvnjahQhepx and unspecified benign neoplasm (1 source)Benign neoplasm of descending colon; Translations: [BENIGN NEOPLASM OF DESCENDING COLON]Onset: 87-91-0575JkeyagbiWlnsb gastrointestinal disorders (1 source)Dysphagia, unspecified; Translations: [DYSPHAGIA UNSPECIFIED]Onset: 53-50-2980CdxhjzpfYbcff liver diseases (1 source)Fatty (change of) liver, not elsewhere classified; Translations: [FATTY CHANGE LIVER NEC]Onset: 56-68-3343DxwnjoyDycmt lower respiratory disease (3 sources)Lung mass; Translations: [Other nonspecific abnormal finding of lung field]78-69-1942MhesmwbyWhbhs lower respiratory disease (9 sources)Multiple nodules of lung; Translations: [Other nonspecific abnormal finding of lung field]27-51-4316AmcxnamzNohus lower respiratory disease (1 source)Nodule of lung; Translations: [Solitary pulmonary nodule]02-11-2023 EpisodicOther non-traumatic joint disorders (12 sources)Hip pain; Translations: [Pain in left hip]24-61-7073EbdssaneBfazq non-traumatic joint disorders (4 sources)Effusion of joint of left knee; Translations: [Effusion, left knee] 12-76-9253EckrsqjgMowrf non-traumatic joint disorders (4 sources)Pain in left knee; Translations: [Pain in joint, lower leg]12-09-2024 EpisodicOther nutritional; endocrine; and metabolic disorders (2 sources)Overweight in adulthood with body mass index of 25 or more but less than 5819-13-3524GnucxofmYyfqz screening for suspected conditions (not mental disorders or infectious disease) (1 source)Abnormal findings on diagnostic imaging of other specified body structures; Translations: [ABNORML FIND DX IMG OTH BODY STRUC]Onset: 08-01-2022 ChronicOther skin disorders (4 sources)Seborrheic keratosis; Translations: [Other seborrheic keratosis] 46-57-2323BitkmbvcGwsro skin disorders (8 sources)Actinic keratosis; Translations: [Actinic keratosis]05-26-2024 EpisodicOther skin disorders (2 sources)Inflamed seborrheic keratosis; Translations: [Inflamed seborrheic keratosis]06-81-7549XzaqnvipRofug upper respiratory disease (1 source)Unspecified voice and resonance disorder; Translations: [UNS VOICE AND RESONANCE DISORDER]Onset: 24-09-0019FtsmsvbgGrllyxpegv and visceral atherosclerosis (2 sources)Arteriosclerotic vascular orlqkpr67-19-0586NzlvdmeNwpemscytr arthritis and related disease (2 sources)Rheumatoid arthritis; Translations: [Rheumatoid arthritis, unspecified]86-25-1597ZxxptdgGehfkmizw malignancies (20 sources)Secondary malignant neoplasm of lymph nodes of neck; Translations: [Secondary and unspecified malignant neoplasm of lymph nodes of head, face and neck]Onset: 916282-97-0651ZwonbdqIldlebemx malignancies (2 sources)Metastasis to head and neck lymph node; Translations: [Secondary and unspecified malignant neoplasmof lymph nodes of head, face and neck]08-31-2024 ChronicSpondylosis; intervertebral disc disorders; other back problems (20 sources)Cervical spondylosis without myelopathy; Translations: [Spondylosis without myelopathy or radiculopathy, cervical region]Onset: ChronicSpondylosis; intervertebral disc disorders; other back problems (10 sources)Torticollis; Translations: [Torticollis]71-67-0984BcvassbsEkadqku disorders (7 sources)Iodine-deficiency related diffuse (endemic) goiter; Translations: [Acquired hypothyroidism]Onset: 48-04-9220NmdclfvNvednsx disorders (2 sources)Disorder of thyroid gland; Translations: [Other specified disorders of thyroid]Onset: 157323-07-7790VfavrdqbCidrnpugnvaf (1 source)CONTACT W/AND (SUSP) EXPOS COVID-19; Translations: [CONTACT W/AND (SUSP) EXPOS COVID-19]Onset: 08-01-2022 Past or Other Problems Problem ClassificationProblemDateDocumented DateEpisodic/ChronicCancer of colon (20 sources)History of malignant neoplasm of colon; Translations: [Personal history of other malignant neoplasmof large intestine]Onset: 06-13-2022 Resolved: 57-30-3295RxjtsubqZtcgfmxr mellitus without complication (20 sources)Type 2 diabetes mellitus; Translations: [Type 2 diabetes mellitus without complications]Onset: 02-27-2022 Resolved: 035036-83-2972JnaaioaLnakx disorders and dislocations; trauma-related (20 sources)Dislocation of acromioclavicular joint; Translations: [Unspecified dislocation of right acromioclavicular joint, initial encounter]Onset: 935567-28-2363LzdfqyrwLxjy disorders (20 sources)Mood disordersOnset: 438780-85-2211Jiwfheqnaoj deficiencies (20 sources)Vitamin D deficiency; Translations: [Vitamin D deficiency, unspecified]Onset: 01-15-2023 Resolved: 584968-85-4316HcmjkyhAexln and unspecified benign neoplasm (20 sources)History of polyp of colon; Translations: [Personal history of colonic polyps]Onset: 06-13-2022 Resolved: 19-88-9988WsgqwzarWkopu circulatory disease (20 sources)Raynaud's disease; Translations: [Raynaud's syndrome without gangrene]Onset: 01-15-2023 Resolved: 178833-55-3702ZombtrbKibde connective tissue disease (20 sources)Diastasis recti; Translations: [Separation of muscle (nontraumatic), other site]Onset: 01-15-2023 Resolved: 193364-59-6744OovvtrhpDyejs connective tissue disease (20 sources)Muscle spasm of cervical muscle of neck; Translations: [Other muscle spasm]Onset: 494415-39-0879FaoyawuuYysuu lower respiratory disease (1 source)Other nonspecific abnormal finding of lung field; Translations: [Lung nodules]Onset: 95-86-1871YhfteuqrBcebw male genital disorders (20 sources)Disorder of prostate; Translations: [Disorder of prostate, unspecified]Onset: 01-15-2023 Resolved: 977507-53-0222VaygeekwXtkar male genital disorders (1 source)Disorder of prostate, unspecified; Translations: [DISORDER OF PROSTATE UNSPECIFIED]Onset: 37-42-2213WwumjsvdUtnkm non-epithelial cancer of skin (20 sources)Basal cell carcinoma of face; Translations: [Basal cell carcinoma of skin of unspecified parts of face]Onset: 12-15-2022 Resolved: 186979-23-6123GpvwwifhTauws non-traumatic joint disorders (20 sources)Pain in right shoulder; Translations: [Pain in joint, shoulder region]Onset: 12-15-2022 Resolved: 069879-04-6843WarywraxRgqof nutritional; endocrine; and metabolic disorders (20 sources)Disorder of carbohydrate metabolism; 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, unspecified]Onset: 01-15-2023 Resolved: 221835-89-5670SewztafGylid nutritional; endocrine; and metabolic disorders (20 sources)Overweight; Translations: [Overweight]Onset: 12-15-2022 Resolved: 242179-89-7361KrezesctYamrx skin disorders (20 sources)Lesion of face; Translations: [Disorder of the skin and subcutaneous tissue, unspecified]Onset: 869070-66-8336Epjiegjv Results Test NameValueInterpretationReference RangeFacilityXR Hip - left 3 Viewson 83-92-5283Eefikhm Result: Multiple views of left hip showed severe degenerative joint disease with near complete obliteration of the joint space articulation between the femoral head and acetabulum. There is flattening of the articular surfaces to both femoral and acetabular surfaces. There was marginal osteophytic formation noted. The both femoral and acetabular joint surfaces. There was no acute bony process including but not limited to, fracture and/or dislocation. Impression: Moderate to severe degenerative joint disease, left hipNOLafayette Regional Health Center HealthcareRadiology Study observation (narrative)NOMS HealthcareALBUMIN, RANDOM URINE W/CREATININEon 03-27-2025 ALBUMIN, URINE0.8 mg/dLNormalSee Note:[facility] DiagnosticsComment on above:Result Comment: Reference Range: Reference Range Not establishedPerformed By: #### 1956, 0140, 98694 #### [facility] [address], [address] [place], [place] [address] Spinning Lathe Operator: Maged Olson MDALBUMIN/CREATININE RATIO, RANDOM URINE11 mg/g creatNormal<30Quest DiagnosticsComment on above:Result Comment: The ADA defines abnormalities in albumin excretion as follows: Albuminuria Category Result (mg/g creatinine) Normal to Mildly increased <30 Moderately increased 30-299 Severely increased > OR = 300 The ADA recommends that at least two of three specimens collected within a 3-6 month period be abnormal before considering a patient to be within a diagnostic category.Performed By: #### 4526, 5820, 85226 #### [facility] [address], [address] [place], [place] [address] Spinning Lathe Operator: Maged Olson MDCreatinine (U) [Mass/Vol]71 mg/tRNtvwrx86-369 Quest DiagnosticsComment on above:Performed By: #### 6517, 7600, 74617 #### [facility] of [place] [address] Spinning Lathe Operator: Maged Olson MDCOMPREHENSIVE METABOLIC PANELon 03-27-2025 Albumin [Mass/Vol]4.0 g/dLNormal3.6-5.1Quest DiagnosticsComment on above: Performed By: #### 6517, 7600, 37602 #### [facility] [place] [address] Spinning Lathe Operator: Maged Olson MDAlbumin/Globulin [Mass ratio]1.6 {ratio}Normal 1.0-2.5Quest DiagnosticsComment on above:Performed By: #### 6517, 0, 82031 #### [facility] [place] [address] Spinning Lathe Operator: Maged Olson MDALP [Catalytic activity/Vol]73 U/KJhorge60-367 [facility] DiagnosticsComment on above:Performed By: #### 6517, 0, 28127 #### [facility] [place] [address] Spinning Lathe Operator: Maged Olson MDALT [Catalytic activity/Vol]49 U/LHigh9-46 [facility] DiagnosticsComment on above:Performed By: #### 6517, 7600, 67430 #### [facility] [place] [address] Spinning Lathe Operator: Maged Olson MDAST [Catalytic activity/Vol]29 U/IVjsqpz87-53 Quest DiagnosticsComment on above:Performed By: #### 6517, 7600, 02978 #### [facility] [place] [address] Spinning Lathe Operator: Maged Oslon MDBilirubin [Mass/Vol]1.0 mg/dLNormal0.2-1.2 Quest DiagnosticsComment on above:Performed By: #### 6517, 7600, 41343 #### [facility] of [address], [address] [place] [address] Spinning Lathe Operator: Maged FORDalcium [Mass/Vol]9.1 mg/dLNormal8.6-10.3Quest DiagnosticsComment on above:Performed By: #### 6517, 0, 43102 #### [facility] of [address], [address] [place] [address] Spinning Lathe Operator: Maged Olson MDChloride [Moles/Vol]102 mmol/QQrueeu41-685 Quest DiagnosticsComment on above:Performed By: #### 6517, 0, 60272 #### [facility] [place] [address] Spinning Lathe Operator: Maged Olson MDCO2 [Moles/Vol]27 mmol/WQypwnm41-15Gjkoy DiagnosticsComment on above:Performed By: #### 6517, 0, 77618 #### [facility] [place] [address] Spinning Lathe Operator: Maged FORDreatinine [Mass/Vol]1.28 mg/dLHigh0.70-1.22 Quest DiagnosticsComment on above:Performed By: #### 6517, 0, 67725 #### [facility] [place] [address] Spinning Lathe Operator: Maged Olson MDGFR/1.73 sq M.predicted among non-blacks MDRD (S/P/Bld) [Vol rate/Area]56 mL/min/{1.73_m2}Low> OR = 60Quest DiagnosticsComment on above:Performed By: #### 6517, 7600, 05504 #### [facility] [place] [address] Spinning Lathe Operator: Maged Olson MDGlobulin (S) [Mass/Vol]2.5 g/dLNormal1.9-3.7 Quest DiagnosticsComment on above:Performed By: #### 6517, 0, 21295 #### [facility] [place] [address] Spinning Lathe Operator: Maged Olson MDGlucose [Mass/Vol]183 mg/mMLbas12-37Frfwm DiagnosticsComment on above:Result Comment: Fasting reference interval For someone without known diabetes, a glucose value >125 mg/dL indicates that they may have diabetes and this should be confirmed with a follow-up test.Performed By: #### 6517, 7600, 08232 #### [facility] [place] [address] Spinning Lathe Operator: Maged Olson MDPotassium [Moles/Vol]4.3 mmol/LNormal3.5-5.3 Quest DiagnosticsComment on above:Performed By: #### 6517, 7599, 94473 #### [facility] [place] [address] Spinning Lathe Operator: Maged Olson MDProtein [Mass/Vol]6.5 g/dLNormal6.1-8.1Quest DiagnosticsComment on above:Performed By: #### 6517, 0, 34771 #### [facility] [place] [address] Spinning Lathe Operator: Maged Olson MDSodium [Moles/Vol]139 mmol/OTytidz931-154Chhww DiagnosticsComment on above:Performed By: #### 6517, 0, 36282 #### [facility] [place] [address] Spinning Lathe Operator: Maged Olson MDUrea nitrogen [Mass/Vol]17 mg/dLNormal7-25 Quest DiagnosticsComment on above:Performed By: #### 65, 0, 42734 #### [facility] [place] [address] Spinning Lathe Operator: Maged Olson MDUrea nitrogen/Creatinine [Mass ratio]13 mg/mg Normal6-22Quest DiagnosticsComment on above:Performed By: #### 6517, 7600, 09887 #### [facility] [address], [address] [place] [address] Spinning Lathe Operator: Maged Olson MDLIPID PANEL, STANDARD 35-83-1977Hdavuatcrmp [Mass/Vol]152 mg/dLNormal<200Quest DiagnosticsComment on above:Order Comment: FASTING:YES FASTING: YESPerformed By: #### 6517, 7600, 43050 #### [facility] [address], [address] [place] [address] Spinning Lathe Operator: Maged Olson MDCholesterol in HDL [Mass/Vol]54 mg/dLNormal> OR = 40Quest DiagnosticsComment on above:Order Comment: FASTING:YES FASTING: YESPerformed By: #### 6517, 7600, 26517 #### [facility] [address], [address] [place] [address] Spinning Lathe Operator: Maged Olson MDCholesterol in LDL [Mass/Vol]82 mg/dLNormal Quest DiagnosticsComment on above:Order Comment: FASTING:YES FASTING: YESResult Comment: Reference range: <100 Desirable range <100 mg/dL for primary prevention; <70 mg/dL for patients with CHD or diabetic patients with > or = 2 CHD risk factors. LDL-C is now calculated using the Monroe-Alverto calculation, which is a validated novel method providing better accuracy than the Friedewald equation in the estimation of LDL-C. Monroe GAN et al. TITI. 2013;310(19): 3419-2034 (http://education.XGIMI.RedFlag Software/faq/SUD116)Performed By: #### 6517, 7600, 67539 #### [facility] [address], [address] [place] [address] Spinning Lathe Operator: Maged FORDholesterominerva.total/Cholesterol in HDL [Mass ratio]2.8 {ratio}Normal<5.0Quest DiagnosticsComment on above:Order Comment: FASTING:YES FASTING: YESPerformed By: #### 6517, 7600, 22263 #### [facility] [address], [address] [place] [address] Spinning Lathe Operator: Maged WATERS HDL EYXOCIBNMOH17 mg/dL (calc)Normal<130 Quest DiagnosticsComment on above:Order Comment: FASTING:YES FASTING: YESResult Comment: For patients with diabetes plus 1 major ASCVD risk factor, treating to a non-HDL-C goal of <100 mg/dL (LDL-C of <70 mg/dL) is considered a therapeutic option.Performed By: #### 6517, 7600, 60489 #### [facility] [address], [address] [place] [address] Spinning Lathe Operator: Maged Olson MDTriglyceride [Mass/Vol]82 mg/dLNormal<150Quest DiagnosticsComment on above:Order Comment: FASTING:YES FASTING: YESPerformed By: #### 6517, 7600, 62837 #### [facility] [address], [address] [place] [address] Spinning Lathe Operator: Maged Olson MDMR Hip - left WO contraston 03-36-9333[place] [id number] Magnetic Resonance Report Signed Patient: MANISH ROOT MR#: [id number] : 1945 Acct:[id number] Age/Sex: 79 / M ADM Date: 03/12/25 Loc: MRI Attending Dr: MASON JOHNSON Ordering Physician: MASON JOHNSON Date of Service: 03/12/25 Procedure(s): MR hip LT wo con Accession Number(s): [id number] cc: MASON JOHNSON [address] [address] Patient Name: MANISH ROOT MRN: [id number] date: 1945 Sex: M Assigned Patient Location: MRI Current Patient Location: MRI Accession/Order Number: [id number] Exam Date: 03/12/2025 10:00 Report Date: 03/12/2025 15:44 At the request of: MASON JOHNSON Procedure: MR hip LT wo con MR hip LT wo con 03/12/2025 11:18 AM SIGNS AND SYMPTOMS: Primary Osteoarthritis Left Hip, Left Hip Pain PROTOCOL: Multiplanar multisequence MR images of the left hip without contrast COMPARISON: 10/13/2024 FINDINGS: Alignment: Normal Femoroacetabular impingement anatomy: None. Dysplasia: None. Fluid: There is a small joint effusion.. Labrum: Incompletely evaluated. The labrum is irregular in signal intensity(l suspicious for a chronic degenerative process.. Cartilage: Femoral: There is full thickness chondromalacia which is most notable along the superior articular surface. There is underlying subchondral cystic change and edema. Acetabular: There is full thickness chondromalacia in the roof of the acetabulum anteriorly with underlying subchondral cystic change and edema. Capsule/ligaments: Normal. Muscles/tendons/entheses: Flexors: Normal. Extensors: Normal. Abductors: Normal. Adductors: Normal. Rotators: Normal. Hamstrings: Edema is noted at the hamstrings origins suggesting tendinopathy. Bones (other than subarticular marrow): Normal. Vessels: [...] Burnett M.D. 03/12/2025 3:44 PM Dictation Location: [place] [address] Electronically authenticated by: [id number] Y Date: 03/12/2025 15:44 Dictated By: El Burnett M.D. Signed By: 03/12/25 1546 DD/ 1544 TD/TT: Radio Personality:OMARHRadiology, Radiologist, - 03/12/[address] [address] Magnetic Resonance Report Signed Patient: MANISH ROOT MR#: [id number] : 1945 Acct:[id number] Age/Sex: 79 / M ADM Date: 03/12/25 Loc: MRI Attending Dr: MASON JOHNSON Ordering Physician: MASON JOHNSON Date of Service: 03/12/25 Procedure(s): MR hip LT wo con Accession Number(s): [id number] cc: MASON JOHNSON [place] [id number] Patient Name: MANISH ROOT MRN: [id number] date: 1945 Sex: M Assigned Patient Location: MRI Current Patient Location: MRI Accession/Order Number: [id number] Exam Date: 03/12/2025 10:00 Report Date: 03/12/2025 15:44 At the request of: MASON JOHNSON Procedure: MR hip LT wo con MR hip LT wo con 03/12/2025 11:18 AM SIGNS AND SYMPTOMS: Primary Osteoarthritis Left Hip, Left Hip Pain PROTOCOL: Multiplanar multisequence MR images of the left hip without contrast COMPARISON: 10/13/2024 FINDINGS: Alignment: Normal Femoroacetabular impingement anatomy: None. Dysplasia: None. Fluid: There is a small joint effusion.. Labrum: Incompletely evaluated. The labrum is irregular in signal intensity(l suspicious for a chronic degenerative process.. Cartilage: Femoral: There is full thickness chondromalacia which is most notable along the superior articular surface. There is underlying subchondral cystic change and edema. Acetabular: There is full thickness chondromalacia in the roof of the acetabulum anteriorly with underlying subchondral cystic change and edema. Capsule/ligaments: Normal. Muscles/tendons/entheses: Flexors: Normal. Extensors: Normal. Abductors: Normal. Adductors: Normal. Rotators: Normal. Hamstrings: Edema is noted at the hamstrings origins suggesting tendinopathy. Bones (other than subarticular marrow): Normal. Vessels: [...] Burnett M.D. 03/12/2025 3:44 PM Dictation Location: [place] [address] Electronically authenticated by: [id number] Y Date: 03/12/2025 15:44 Dictated By: El Burnett M.D. Signed By: 03/12/25 1546 DD/ 1544 TD/TT: Radio Personality: [facility]NA HealthcareRadiology Study observation (narrative)[facility] Hip - left WO contrastOrdered By: Radiologist Radiology on 89-45-9198[employer] Work Phone: XR LUMBAR SPINE 2 OR 3Von 15-92-5445[place]Lock[place], [place] [address] XRay Report Signed Patient: MANISH ROOT MR#: [id number] : 1945 Acct:[id number] Age/Sex: 79 / M ADM Date: 12/28/24 Loc: [facility] Attending Dr: MASON JOHNSON Ordering Physician: MASON JOHNSON Date of Service: 12/28/24 Procedure(s): XR lumbar spine 2-3V Accession Number(s): [id number] cc: MASON JOHNSON [place] [id number] Patient Name: MANISH ROOT MRN: [id number] date: 1945 Sex: M Assigned Patient Location: [facility] Current Patient Location: [facility] Accession/Order Number: [id number] Exam Date: 12/28/2024 16:30 Report Date: 12/28/2024 [...] Burnett M.D. 12/28/2024 4:31 PM Dictation Location: [place] [address] Electronically authenticated by: [id number] Y Date: 12/28/2024 16:31 Dictated By: El Burnett M.D. Signed By: 12/28/24 1634 DD/ 1631 TD/TT: Radio Personality:TBHRadiology, Radiologist, - 12/28/2024 [place] [address] XRay Report Signed Patient: MANISH ROOT MR#: [id number] : 1945 Acct:[id number] Age/Sex: 79 / M ADM Date: 12/28/24 Loc: [facility] Attending Dr: MASON JOHNSON Ordering Physician: MASON JOHNSON Date of Service: 12/28/24 Procedure(s): XR lumbar spine 2-3V Accession Number(s): [id number] cc: MASON JOHNSON [place] [address] Patient Name: MANISH ROOT MRN: [id number] date: 1945 Sex: M Assigned Patient Location: [facility] Current Patient Location: [facility] Accession/Order Number: [id number] Exam Date: 12/28/2024 16:30 Report Date: 12/28/2024 [...] Burnett M.D. 12/28/2024 4:31 PM Dictation Location: [place] [address] Electronically authenticated by: [id number] Y Date: 12/28/2024 16:31 Dictated By: El Burnett M.D. Signed By: 12/28/24 1634 DD/ 1631 TD/TT: Radio Personality: [facility] HospitalRadiology Study observation (narrative)[facility] HospitalXR LUMBAR SPINE 2 OR 3VOrdered By: Radiologist Radiology on 98-85-3825[facility] Work Phone: aNA SCREEN, IFA, W/REFL TITER AND PATTERNon 12-15-2024 RAFAEL SCREEN, IFAPositiveAbnormalNEGATIVEQuest DiagnosticsComment on above:Result Comment: RAFAEL IFA is a first line screen for detecting the presence of up to approximately 150 autoantibodies in various autoimmune diseases. A positive RAFAEL IFA result is suggestive of autoimmune disease and reflexes to titer and pattern. Further laboratory testing may be considered if clinically indicated. For additional information, please refer to http://education.XGIMI.RedFlag Software/faq/ONF402 (This link is being provided for informational/ educational purposes only.)Performed By: #### 905, %61797, 809, 249 #### [facility] [place] [address] [facility], [address] [place] [address] Spinning Lathe Operator: Maged Olson MD #### 00144 #### [facility]minstillyUP[facility] [address] [facility] [place] [address] Spinning Lathe Operator: Yassine Bonilla M.D.,PhDANTINUCLEAR ANTIBODIES TITER AND PATTERNon 02-41-4393MWD PATTERNCytoplasmic, Polar/Golgi-likeAbnormalQuest DiagnosticsComment on above:Result Comment: Discontinuous speckled or granular perinuclear ribbon- like staining with polar distribution in the cytoplasm (e.g., anti-giantin, uqya-cdbryu-655). Pattern is rare in Sjogren's syndrome, systemic lupus erythematosus (SLE), rheumatoid arthritis, mixed connective disease, granulomatosis with polyangiitis (GPA), idiopathic cerebellar ataxia, paraneoplastic cerebellar degeneration, and viral infections. AC-22: Polar/Golgi-like International Consensus on RAFAEL Patterns (https://doi.org/10.1515/zuyi-8692-1309)Performed By: #### 905, %64631, 809, 249 #### [facility] [address], [address] [place] [address] Spinning Lathe Operator: Maged Olson MD #### 00358 #### [facility]/[address] [place], [place] Spinning Lathe Operator: Yassine Bonilla M.D.,PhDANA TITER1:40HighQuest [facility] Comment on above:Result Comment: A low level RAFAEL titer may be present in pre-clinical autoimmune diseases and normal individuals. Reference Range <1:40 Negative 1:40-1:80 Low Antibody Level >1:80 Elevated Antibody LevelPerformed By: #### 905, %11025, 809, 249 #### [facility] [address], [address] [place] [address] Spinning Lathe Operator: Maged Olson MD #### #### [facility]/[place] [address] [facility] [place], [place] Spinning Lathe Operator: Yassine Bonilla M.D.,PhDC-REACTIVE PROTEINon 48-26-0366SVV [Mass/Vol]9.8 mg/LHigh<8.0Quest DiagnosticsComment on above:Performed By: #### 905, %15836, 809, 249 #### [facility] [address], [address] [place] [address] Spinning Lathe Operator: Maged Olson MD ### #### [facility]/[place] [address] [facility] [place], [place] Spinning Lathe Operator: Yassine Bonilla M.D.,PhDRHEUMATOID ARTHRITIS DIAGNOSTIC PANEL 3 58-54-7218FJSXVM CITRULLINATED PEPTIDE (CCP) AB (IGG)<16Normal<20Quest DiagnosticsComment on above:Order Comment: FASTING:YES FASTING: YESResult Comment: Negative: <20 Weak Positive: 20 - 39 Moderate Positive: 40 - 59 Strong Positive: >59Performed By: #### 905, %15945, 809, 249 #### [facility] of [address], [address] [place] [address] Spinning Lathe Operator: Maged Olson MD ### #### [facility]/[address] [place], [place] Spinning Lathe Operator: Yassine Bonilla M.D.,PhDRHEUMATOID FACTOR (IGA)<5Normal<=6 [facility] DiagnosticsComment on above:Order Comment: FASTING:YES FASTING: YESPerformed By: #### 905, %53364, 809, 249 #### [facility] of [address], [address] [place] [address] Spinning Lathe Operator: Maged Olson MD #### #### [facility]/[place] [address] [facility] [place], [place] Spinning Lathe Operator: Yassine Bonilla M.D.,PhDRHEUMATOID FACTOR (IGG)<5Normal<=6 [facility]osticsComment on above:Order Comment: FASTING:YES FASTING: YESPerformed By: #### 905, %57130, 809, 249 #### [facility] of [address], [address] [place] [address] Spinning Lathe Operator: Maged Olson MD ### #### [facility] [address] [place] Spinning Lathe Operator: Yassine Bonilla M.D.,PhDRHEUMATOID FACTOR (IGM)<5Normal<=6 [facility] DiagnosticsComment on above:Order Comment: FASTING:YES FASTING: YESPerformed By: #### 905, %36004, 809, 249 #### [facility] of [address], [address] [place], [place] [address] Spinning Lathe Operator: Maged Olson MD #### #### [facility]/[place] [address] [facility] [address] [place], [place] Spinning Lathe Operator: Yassine Bonilla M.D.,PhDSJOGREN'S ANTIBODY (SS-A)<1.0Normal [facility] DiagnosticsComment on above:Order Comment: FASTING:YES FASTING: YESResult Comment: Reference Range: < 1.0 NEG AIPerformed By: #### 905, %25520, 809, 249 #### [facility] [address], [address] [place], [place] [address] Spinning Lathe Operator: Maged Olson MD ### #### [facility] [address] [place], [place] Spinning Lathe Operator: Yassine Bonilla M.D.,PhDSJOGREN'S ANTIBODY (SS-B)<1.0Normal [facility]osticsComment on above:Order Comment: FASTING:YES FASTING: YESResult Comment: Reference Range: < 1.0 NEG AIPerformed By: #### 905, %84908, 809, 249 #### [facility] of [address], [address] [place], [place] [address] Spinning Lathe Operator: Maged Olson MD ### #### [facility]/[place] [address] [facility] [address] [place], [place] Spinning Lathe Operator: Yassine Bonilla M.D.,PhDSED RATE BY MODIFIED WESTERGRENon 52-07-1202VRK RATE BY MODIFIED WE[facility]SI[facility]ALTH CENTERREN mm/hNormal< OR = 20[facility] Comment on above:Performed By: #### 905, %38297, 809, 249 #### [facility] [address], [address] [place] [address] Spinning Lathe Operator: Maged Olson MD #### 36768 #### [facility]/[place] [address] [facility] [place], [place] Spinning Lathe Operator: Yassine Bonilla M.D.,PhDURIC ACIDon 26-51-9701Xmmxs [Mass/Vol] 5.6 mg/dLNormal4.0-8.0Quest DiagnosticsComment on above:Result Comment: Therapeutic target for gout patients: <6.0 mg/dLPerformed By: #### 905, %28973, 809, 249 #### [facility] [address], [address] [place] [address] Spinning Lathe Operator: Maged Olson MD #### 38681 #### [facility]/[address] [place], [place] Spinning Lathe Operator: Yassine Bonilla M.D.,PhDLaboratory - Hematology and Cell countson 81-73-3255SgZ9a (Bld) [Mass fraction]7.1 %NOMS HealthcareNo Panel Informationon 27-51-7773FGCP HealthcareXR Knee - left 3 Viewson 30-39-2515[place]ua[place], [place] [address] XRay Report Signed Patient: MANISH ROOT MR#: [id number] : 1945 Acct:[id number] Age/Sex: 79 / M ADM Date: 12/09/24 Loc: [facility] Attending Dr: MASON JOHNSON Ordering Physician: MASON JOHNSON Date of Service: 12/09/24 Procedure(s): XR knee LT 3V Accession Number(s): [id number] cc: MASON JOHNSON [place] [id number] Patient Name: MANISH ROOT MRN: [id number] date: 1945 Sex: M Assigned Patient Location: [facility] Current Patient Location: [facility] Accession/Order Number: [id number] Exam Date: 12/09/2024 13:17 Report Date: 12/09/2024 [...] Corea M.D. 12/09/2024 1:18 PM Dictation Location: [place] [address] Electronically authenticated by: [id number] Y Date: 12/09/2024 13:18 Dictated By: Mavis Corea M.D. Signed By: 12/09/24 1321 DD/ 1318 TD/TT: Radio Personality:TBHRadiology, Radiologist, MD - 12/09/[address] [address] XRay Report Signed Patient: MANISH ROOT MR#: [id number] : 1945 Acct:[id number] Age/Sex: 79 / M ADM Date: 12/09/24 Loc: [facility] Attending Dr: MASON JOHNSON Ordering Physician: MASON JOHNSON Date of Service: 12/09/24 Procedure(s): XR knee LT 3V Accession Number(s): [id number] cc: MASON JOHNSON [address] [address] Patient Name: MANISH ROOT MRN: [id number] date: 1945 Sex: M Assigned Patient Location: RAD Current Patient Location: [facility] Accession/Order Number: [id number] Exam Date: 12/09/2024 13:17 Report Date: 12/09/2024 [...] Corea M.D. 12/09/2024 1:18 PM Dictation Location: [place] [address] Electronically authenticated by: [id number] Y Date: 12/09/2024 13:18 Dictated By: Mavis Corea M.D. Signed By: 12/09/24 1321 DD/ 1318 TD/TT: Radio Personality: QUIANA HealthcareRadiology Study observation (narrative)NOMS HealthcareXR Knee - left 3 ViewsOrdered By: Radiologist Radiology on 44-03-5586[facility] Work Phone: cCF T3 SERPL-MCNCon 64-39-4122EMY T3 SERPL-MCNC73 ng/dLLow79 - 165 ng/dLNOIN HealthcareInterpretation and review of laboratory resultsAbnormalNOIN HealthcareCCF T4 SERPL-MCNCon 11-61-0765C0 [Mass/Vol]5.6 ug/dL5.5 - 10.2 ug/dLNOIN HealthcareCCF TSH SERPL-ACNCon 33-79-1351RPZ TSH SERPL-ACNC2.85NOChristian HospitalNo Panel Informationon 49-59-7051Uesuudtm Type: BLOOD SPECIMEN [facility] Address: [address] [place] [address] Original Ordering Provider: Yordan SOLISWright Memorial HospitalT3 SerPl-mCncon 30-70-3935H5 [Mass/Vol]73 ng/uAQgf46-546LtsqijyqbWadsworth-Rittman Hospital Comment on above:Order Comment: Specimen Type: BLOOD SPECIMENOrdering Facility: [facility] Address:[address] [place] [address] Performed By: #### 3053-6, 3026-2, 3016-3 ####[facility] LABCLIA [id number] [address] STATES [facility]ITALT4 SerPl-mCnc 36-75-1279E4 [Mass/Vol]5.6 ug/dLNormal5.5-10.2CSelect Medical Specialty Hospital - ColumbusComment on above:Order Comment: Specimen Type: BLOOD SPECIMENOrdering Facility: [facility] Address:[address] [place], [place] [address]Performed By: #### 3053-6, 3026-2, 3016-3 ####[facility] LABCLIA [id number] [address] SerPl-aCncon 64-51-2457FOA Qn2.850 m[IU]/L Normal0.270-4.200Wadsworth-Rittman HospitalComment on above:Order Comment: Specimen Type: BLOOD SPECIMENOrdering Facility: [facility] Address:[address] [place], [place] [address]Performed By: #### 3053-6, 3026-2, 3016-3 ####[facility] LABCLIA [id number] [address]ETCNOVon 73-84-8409VQFUQgfges Visit (RADTSA) MANISH ROOT ([id number]) 1945 M Date Time Provider Department 11/04/24 [...] Lymph 1.00 - 4.00 k/uL 0.48 (L) [place]% % 10.4 Abs [place] <0.87 k/uL 0.32 Eosin% % 1.6 Abs [...] injection of im (more content not included)... NormalWadsworth-Rittman HospitalCNOVSPon 02-51-3033SORBNSGmtzk (SP) Office (HEMASA) MANISH ROOT ([id number]) 1945 M Date Time Provider Department 11/04/24 [...] 11/04/2024 7:00 PM Signed NAME: Manish Root CLINIC NO.: [id number] DATE OF SERVICE: November 04, 2024 (Jacquelyn) [...] Ca Stage 3 - 2/5 LN + [place] regimen on protocol Updated Visit, November 04, 2024: Manish is doing well but his Jahaira is still dealing with an infection of left shoulder. He's now doing all the cooking. He is having left hip pain c/w arthritis. Reviewed scans and th (more content not included)...NormalACMC Healthcare System Glenbeigh W Auto Differential panel (Bld)on 09-60-1204Xrckyeaqh (Bld) [#/Vol] 0.04 10*3/uLNormal<0.11CSt. [facility] of [facility] on above:Order Comment: Specimen Type: BLOOD SPECIMENOrdering Facility: [facility] Address:[address] [place], [place] [address]Performed By: #### 34975-4 ####[facility] LABCLIA [id number] [place], [place] [address]Humwsqmhh/100 WBC (Bld)1.0 %[facility] on above:Order Comment: Specimen Type: BLOOD SPECIMENOrdering Facility: [facility] Address:[address] [place], [place] [address]Performed By: #### 43401-2 ####[facility] LABCLIA [id number] [place], [place] [address]Wxjehdsdywjf cell count method Nom (Bld)AutoNormalCSt. John of God Hospital on above:Order Comment: Specimen Type: BLOOD SPECIMENOrdering Facility: [facility] Address:[address] [place], [place] [address]Performed By: #### 65712-7 ####[facility] LABCLIA [id number] [place], [place] [address]Rlcpfmxlspa (Bld) [#/Vol]0.10 10*3/uLNormal<0.46[facility] on above:Order Comment: Specimen Type: BLOOD SPECIMENOrdering Facility: [facility] Address:[address] [place], [place] [address]Performed By: #### 42815-8 ####[facility] LABCLIA [id number] [place], [place] [address]Jtkpgtochhw/100 WBC (Bld)2.6 %NormalOur Lady of Mer[facility] on above:Order Comment: Specimen Type: BLOOD SPECIMENOrdering Facility: [facility] Address:[address] [place], [place] [address]Performed By: #### 73522-0 ####[facility] LABCLIA [id number] [place], [place] [address]Drfljovxwbw distribution width (RBC) [Ratio]13.6 %Normal 11.5-15.0[facility] on above:Order Comment: Specimen Type: BLOOD SPECIMENOrdering Facility: [facility] Address:[address] [place], [place] [address]Performed By: #### 14483-7 ####[facility] LABCLIA [id number] [place] [address] Hematocrit (Bld) [Volume fraction]41.1 %Cnovok33.0-51.0[facility] on above:Order Comment: Specimen Type: BLOOD SPECIMENOrdering Facility: [facility] Address:[address] [place], [place] [address]Performed By: #### 02069-7 ####[facility] LABCLIA [id number] [place], [place] [address]Ukbbjcdrhy (Bld) [Mass/Vol]14.0 g/bEDxldav76.0-17.0[facility] on above:Order Comment: Specimen Type: BLOOD SPECIMENOrdering Facility: [facility] Address:[address] [place], [place] [address]Performed By: #### 52030-3 ####[facility] LABCLIA [id number] [place], [place] [address]Vbiawfev granulocytes (Bld) [#/Vol]0.04 10*3/uLNormal <0.10[facility] on above:Order Comment: Specimen Type: BLOOD SPECIMENOrdering Facility: [facility] Address:[address] [place], [place] [address]Performed By: #### 99820-5 ####[facility] LABCLIA [id number] [place], [place] [address]Disfyggc granulocytes/100 WBC (Bld)1.0 %NormalOur Lady of Mercy [facility] on above: Order Comment: Specimen Type: BLOOD SPECIMENOrdering Facility: [facility] Address:[address] [place], [place] [address]Performed By: #### 72961- 8 ####[facility] LABCLIA [id number] [place], [place] [address]Itsicekeqff (Bld) [#/Vol]0.58 10*3/uLLow1.00-4.00 [facility] on above:Order Comment: Specimen Type: BLOOD SPECIMENOrdering Facility: [facility] Address:[address] [place], [place] [address]Performed By: #### 57051-3 ####[facility] LABCLIA [id number] [place], [place] [address]Ilzeyvxviix/100 WBC (Bld)14.8 %NormalOur Lady of Mercy [facility] - [facility] on above:Order Comment: Specimen Type: BLOOD SPECIMENOrdering Facility: [facility] Address:[address] [place], [place] [address]Performed By: #### 38998-6 ####[facility] LABCLIA [id number] [place], [place] [address]NWK (RBC) [Entitic mass]30.8 ufLygkod48.0-34.0[facility] on above:Order Comment: Specimen Type: BLOOD SPECIMENOrdering Facility: [facility] Address:[address] [place], [place] [address]Performed By: #### 31984-8 ####[facility] LABIA [id number] [place], [place] [address]JRLI (RBC) [Mass/Vol]34.1 g/vGMsmtfa03.5-36.0[facility] on above: Order Comment: Specimen Type: BLOOD SPECIMENOrdering Facility: [facility] Address:[address] [place], [place] [address]Performed By: #### 15641- 8 ####[facility] LABIA [id number] [place], [place] [address]NUJ (RBC) [Entitic vol]90.3 gKZzfjbg59.0-100.0[facility] on above:Order Comment: Specimen Type: BLOOD SPECIMENOrdering Facility: [facility] Address:[address] [place], [place] [address]Performed By: #### 36710-0 ####[facility] LABIA [id number] [place], [place] [address]Tynzlmemz (Bld) [#/Vol]0.34 10*3/uLNormal<0.87[facility] on above:Order Comment: Specimen Type: BLOOD SPECIMENOrdering Facility: [facility] Address:[address] [place], [place] [address]Performed By: #### 13240- 8 ####[facility] LABCLIA [id number] [place], [place] [address]Zkrlywgjz/100 WBC (Bld)8.7 %NormalOur Lady of Mercy [facility] on above:Order Comment: Specimen Type: BLOOD SPECIMENOrdering Facility: [facility] Address:[address] [place], [place] [address]Performed By: #### 39710-1 ####[facility] LABCLIA [id number] [place], [place] [address]Wavmerdkktf (Bld) [#/Vol]2.81 10*3/uLNormal1.45-7.50[facility] on above:Order Comment: Specimen Type: BLOOD SPECIMENOrdering Facility: [facility] Address:[address] [place], [place] [address]Performed By: #### 67095-6 ####[facility] LABCLIA [id number] [place], [place] [address]Izcpsisqxjv/100 WBC (Bld)71.9 %NormalOur Lady of Mercy [facility] on above:Order Comment: Specimen Type: BLOOD SPECIMENOrdering Facility: [facility] Address:[address] [place], [place] [address]Performed By: #### 99423-2 ####[facility] LABCLIA [id number] [place], [place] [address]Nzcpgonte RBC (Bld) [#/Vol] 10*3/uLNormal<0.01[facility] on above:Order Comment: Specimen Type: BLOOD SPECIMENOrdering Facility: [facility] Address:[address] [place], [place] [address]Performed By: #### 47217-3 ####[facility] LABCLIA [id number] [place], [place] [address]Tfwlbvngu RBC/100 WBC (Bld) [Ratio]0.0 /100 WBCNormal [facility] on above:Order Comment: Specimen Type: BLOOD SPECIMENOrdering Facility: [facility] Address:[address] [place], [place] [address]Performed By: #### 95896-6 ####[facility] LABCLIA [id number] [place], [place] [address]Fdnnkyfe mean volume (Bld) [Entitic vol]9.7 fLNormal9.0-12.7CSt. John of God Hospital on above:Order Comment: Specimen Type: BLOOD SPECIMENOrdering Facility: [facility] Address:[address] [place] [address] Performed By: #### 16380-9 ####[facility]ENTERJERMAINE [facility] LABCLIA [id number] [place], [place] [address]Zliqdkknu (Bld) [#/Vol]210 10*3/oCLjduqb541-485SuvibdynkOur Lady of [facility] on above:Order Comment: Specimen Type: BLOOD SPECIMENOrdering Facility: [facility] Address:[address] [place], [place] [address]Performed By: #### 48712-4 ####[facility] LABCLIA [id number] [place], [place] [address]XDF (Bld) [#/Vol]4.55 10*6/uLNormal4.20-6.00[facility] on above:Order Comment: Specimen Type: BLOOD SPECIMENOrdering Facility: [facility] Address:[address] [place], [place] [address]Performed By: #### 83345-9 ####[facility] LABCLIA [id number] [place], [place] [address]PDB (Bld) [#/Vol]3.91 10*3/uLNormal3.70-11.00[facility] on above: Order Comment: Specimen Type: BLOOD SPECIMENOrdering Facility: [facility] Address:[address] [place], [place] [address]Performed By: #### 72302- 8 ####[facility] LABCLIA [id number] [place], [place] [address]RKX CBC W AUTO DIFF BLDon 97-35-7721Vqstvcckn/100 WBC (Bld)1 %[facility] BASOPHILS # BLD AUTO0.04NIHancock County Hospital DIFFERENTIAL METHOD BLDAutoNOMFreeman Orthopaedics & Sports Medicine EOSINOPHIL # BLD AUTO0.1NINFNOSSM [facility] LYMPHOCYTES # BLD AUTO0.58LowSainte Genevieve County Memorial HospitalF MONOCYTES # BLD AUTO0.34NIHancock County Hospital NEUTROPHILS # BLD AUTO2.81NOSSM [facility] NRBC # BLD AUTO<0.01NIHancock County Hospital NRBC/100 WBC BLD-RTO0/100 WBCSt. Louis Children's Hospital PLATELET # BLD LOMT114SUWVSt. Louis [facility]'s Hospital PMV BLD AUTO9.7 fL9.0 - 12.7 fLSt. Louis Children's Hospital WBC # BLD AUTO3.91NOChristian HospitalEosinophils/100 WBC (Bld)2.6 %[facility]right Memorial HospitalErythrocyte distribution width (RBC) [Ratio]13.6 %11.5 - 15.0 %[facility] Memorial HospitalHematocrit (Bld) [Volume fraction]41.1 %39.0 - 51.0 %[facility] Memorial HospitalHemoglobin (Bld) [Mass/Vol]14 g/dL13.0 - 17.0 g/dLHeartland Behavioral Health Services GRANULOCYTES # BLD AUTO0.04NIMethodist [facility] GRANULOCYTES/LEUK NFR BLD AUTO 1 %[facility] Memorial HospitalInterpretation and review of laboratory resultsAbnormalWright Memorial HospitalLymphocytes/100 WBC (Bld)14.8 %[facility] NorthlandH (RBC) [Entitic mass] 30.8 pg26.0 - 34.0 pgChildren's Mercy NorthlandHC (RBC) [Mass/Vol]34.1 g/dL30.5 - 36.0 g/dLChildren's Mercy NorthlandV (RBC) [Entitic vol]90.3 fL80.0 - 100.0 fLWright Memorial Hospital Monocytes/100 WBC (Bld)8.7 %[facility] Memorial HospitalNeutrophils/100 WBC (Bld)71.9 %[facility]right Memorial HospitalRBC (Bld) [#/Vol]4.55 10*6/uL4.20 - 6.00 /[facility] HealthcareSpecimen Type: BLOOD SPECIMEN [facility] Address: [place] [address] Original Ordering Provider: JOHN KerrCT CHEST W IVCONon 49-28-8862NJ CHEST W IVCON* * *Final Report* * * DATE OF EXAM: Oct 28 2024 9:48AM [facility] 0539 - CT CHEST W [...] findings. IMPRESSION: 1. No interval change since 10/17/24. 2. Mild patchy opacities in the left [...] any questions regarding this interpretation, please call [phone]. If you are unable to reach us at the number above, please feel free to contact [facility] eRadiology at [phone]. [id number]_IDCSIACNNormalWadsworth-Rittman HospitalCT Chest W contrast Kinga 10-28-2024* * *Final Report* * * DATE OF EXAM: Oct 28 2024 9:48AM [facility] 0539 - CT CHEST W [...] any questions regarding this interpretation, please call [phone]. If you are unable to reach us at the number above, please feel free to contact [facility] at [phone]. [id number]^AGFA_IDC^SI^ACNCCFRadiology, Radiologist, - 10/28/2024 * * *Final Report* * * DATE OF EXAM: Oct 28 2024 9:48AM [facility] 0539 - CT CHEST W [...] any questions regarding this interpretation, please call [phone]. If you are unable to reach us at the number above, please feel free to contact [facility] at [phone]. [id number]^AGFA_IDC^SI^ACN NOMS HealthcareCT Chest W contrast IVOrdered By: Radiologist Radiology on 94-53-6560EOLK [employer] Work Phone: cT NECK SOFT TISSUE W IVCONon 10-28-2024* * *Final Report* * * DATE OF EXAM: Oct 28 2024 9:48AM [facility] 0013 - CT NECK SOFT TISSUE [...] review the electronic medical record, history of J90-jninjtpc LEFT tongue base squamous cell carcinoma status [...] site or elsewhere in the neck. Stable posttreatment/postradiation changes including mucosal/submucosal edema and [...] any questions regarding this interpretation, please call [phone]. If you are unable to reach us at the number above, please feel free to contact [facility] at [phone]. [id number]^AGFA_IDC^SI^ACNCCFRadiology, Radiologist, - 10/28/2024 * * *Final Report* * * DATE OF EXAM: Oct 28 2024 9:48AM [facility] 0013 - CT NECK SOFT TISSUE [...] review the electronic medical record, history of N13-uzbrjtza LEFT tongue base squamous cell carcinoma status [...] site or elsewhere in the neck. Stable posttreatment/postradiation changes including mucosal/submucosal edema and [...] any questions regarding this interpretation, please call [phone]. If you are unable to reach us at the number above, please feel free to contact [facility] eRadiology at [phone]. [id number]^AGFA_IDC^SI^ACN NOMS HealthcareCT NECK SOFT TISSUE W IVCON* * *Final Report* * * DATE OF EXAM: Oct 28 2024 9:48AM [facility] 0013 - CT NECK SOFT TISSUE [...] review the electronic medical record, history of G52-ctsexmxx LEFT tongue base squamous cell carcinoma status post chemotherapy completed Corine/2023). TECHNIQUE: CT neck soft tissues following IV [...] site or elsewhere in the neck. Stable posttreatment/postradiation changes including mucosal/submucosal edema and [...] any questions regarding this interpretation, please call [phone]. If you are unable to reach us at the number above, please feel free to contact [facility] eRadiology at [phone]. [id number]_IDCSIACNNormalWadsworth-Rittman HospitalCT NECK SOFT TISSUE W IVCONOrdered By: Radiologist Radiology on 04-06-0717HKCT [employer] Work Phone: comprehensive metabolic 2000 panelon 25-81-0166Cetjlgu [Mass/Vol]4.6 g/dLNormal3.9-4.9CSt. [facility] of [facility] Hospital on above:Order Comment: Specimen Type: BLOOD SPECIMENOrdering Facility: [facility] Address:[address] [place], [place] [address]Performed By: #### 3016-3 ####[facility] LABCLIA [id number] [facility] [id number] [place] [address] [place]#### 39264-2 ####[facility] LABCLIA [id number] [place], [place] [address]EJT [Catalytic activity/Vol]61 U/UByrjdv83-760EbuszuaqfWadsworth-Rittman Hospital Comment on above:Order Comment: Specimen Type: BLOOD SPECIMENOrdering Facility: [facility] Address:[address] [place] [address] Performed By: #### 3016-3 ####[facility] LABCLIA [id number] [facility] PET[facility]GSEGKKLBVENU73HUMJKFZOP, [place] [address] [place]#### 56180-9 ####[facility] LABCLIA [id number] [place], [place] [address]EGW [Catalytic activity/Vol]27 U/LNormal 10-54Wadsworth-Rittman HospitalCommclaren bay special care hospital on above:Order Comment: Specimen Type: BLOOD SPECIMENOrdering Facility: [facility] Address:[address] [place], [place] [address]Performed By: #### 3016-3 ####[facility] LABCLIA [id number] [place] [address] [place]#### 96190-2 ####[facility] LABCLIA [id number] [place], [place] [address]Btvqg gap [Moles/Vol]11 mmol/L Normal8-15[facility] on above:Order Comment: Specimen Type: BLOOD SPECIMENOrdering Facility: [facility] Address:[address] [place], [place] [address]Performed By: #### 3016-3 ####[facility] LABCLIA [id number] [place] [address] [place]#### 59146-1 ####[facility] BCLIA [id number] [place], [place] [address]XUX [Catalytic activity/Vol]23 U/XNyqvzi14-56NrihvoxxfOur Lady of [facility] on above:Order Comment: Specimen Type: BLOOD SPECIMENOrdering Facility: [facility] Address:[address] [place], [place] [address]Performed By: #### 3016-3 ####[facility] LABCLIA [id number] [facility] [place]60[place]OVCEEL[place], [place] [address] [place]#### 69527-0 ####[facility] LABCLIA [id number] [place], [place] [address]Nlkofhosn [Mass/Vol]0.5 mg/dLNormal0.2-1.3CSt. John of God Hospital on above:Order Comment: Specimen Type: BLOOD SPECIMENOrdering Facility: [facility] Address:[address] [place] [address] Performed By: #### 3016-3 ####[facility] LABCLIA [id number] [address] [place]#### 30228-7 ####[facility]ENTERJERMAINE [facility] LABCLIA [id number] [place], [place] [address]Ahbtxyi [Mass/Vol]9.8 mg/dLNormal8.5-10.2 [facility] on above:Order Comment: Specimen Type: BLOOD SPECIMENOrdering Facility: [facility] Address:[address] [place], [place] [address]Performed By: #### 3016-3 ####[facility] LABCLIA [id number] [address] [place]#### 84081-7 ####[facility] LABCLIA [id number] [place], [place] [address]Glfvviub [Moles/Vol]100 mmol/JNepjgq06-489 [facility] on above:Order Comment: Specimen Type: BLOOD SPECIMENOrdering Facility: [facility] Address:[address] [place], [place] [address]Performed By: #### 3016-3 ####[facility] LABCLIA [id number] [address] [place]#### 00674-0 ####[facility] LABCLIA [id number] [place], [place] [address]AV1 [Moles/Vol]27 mmol/VXvdcqk41-28SeupyliejOur Lady of [facility] on above:Order Comment: Specimen Type: BLOOD SPECIMENOrdering Facility: [facility] Address:[address] [place], [place] [address]Performed By: #### 3016-3 ####[facility] LABCLIA [id number] [address] [place]#### 18736-3 ####[facility] LABCLIA [id number] [place], [place] [address]Xgmzvhvrex [Mass/Vol]1.04 mg/dLNormal 0.73-1.22[facility] on above:Order Comment: Specimen Type: BLOOD SPECIMENOrdering Facility: [facility] Address:[address] [place], [place] [address]Performed By: #### 3016-3 ####[facility] LABCLIA [id number] [address]#### 66520-3 ####[facility] [place] BCLIA [id number] [place], [place] [address]Vcgxrkrpsq and Glomerular filtration rate.predicted panel (S/P/Bld)73 mL/min/1.73m???Normal>=60 [facility] on above:Order Comment: Specimen Type: BLOOD SPECIMENOrdering Facility: [facility] Address:[address] [place], [place] [address]Result Comment: Estimated Glomerular Filtration Rate (eGFR) is calculated using the 2020 CKD-EPI creatinine equation. This equation utilizes serum creatinine, sex, and age as parameters. The creatinine assay has traceable calibration to isotope dilution-mass spectrometry. Refer to KDIGO guidelines for clinical interpretation. In patients with unstable renal function, e.g. those with acute kidney injury, the eGFR may not accurately reflect actual GFR.Performed By: #### 3016-3 ####[facility] LABCLIA [id number] [address] [place]#### 50262-8 ####[facility] LABCLIA [id number] [place], [place] [address]Kmedsqa [Mass/Vol]235 mg/eZLiep43-20 [facility] on above:Order Comment: Specimen Type: BLOOD SPECIMENOrdering Facility: [facility] Address:[address] [place], [place] [address]Result Comment: The [place] Diabetes Association (ADA) provides guidance for cutoff [...] Standards of Medical Care in Diabetes 2016, [place] [employer]. Diabetes Care. 2016.39(Suppl 1).Performed By: #### 3016-3 ####[facility] LABCLIA [id number] [place] [address] [place]#### 24252-6 ####[facility] LABCLIA [id number] [place], [place] [address]Hvfdzaeow [Moles/Vol]4.3 mmol/LNormal3.7-5.1CSelect [facility] Specialty [facility] Comment on above:Order Comment: Specimen Type: BLOOD SPECIMENOrdering Facility: [facility] Address:[address] [place] [address] Performed By: #### 3016-3 ####[facility] LABCLIA [id number] [place] [address] [place]#### 23649-3 ####[facility] LABCLIA [id number] [place], [place] [address]Ulhqerr [Mass/Vol]7.2 g/dLNormal6.3-8.0 [facility]-Rittman HospitalComment on above:Order Comment: Specimen Type: BLOOD SPECIMENOrdering Facility: [facility] Address:[address] [place], [place] [address]Performed By: #### 3016-3 ####[facility] LABCLIA [id number] [place] [address] [place]#### 36460-6 ####[facility] LABCLIA [id number] [place], [place] [address]Qslewx [Moles/Vol]138 mmol/CFebkxv206-233 [facility] on above:Order Comment: Specimen Type: BLOOD SPECIMENOrdering Facility: [facility] Address:[address] [place], [place] [address]Performed By: #### 3016-3 ####[facility] LABCLIA [id number] [place] [address] [place]#### 45689-5 ####[facility] LABCLIA [id number] [place], [place] [address]Adim nitrogen [Mass/Vol]13 mg/dLNormal9-24 [facility] on above:Order Comment: Specimen Type: BLOOD SPECIMENOrdering Facility: [facility] Address:[address] [place], [place] [address]Performed By: #### 3016-3 ####[facility] LABCLIA [id number] [address] [place]#### [address]6622-8 ####[facility] LABCLIA [id number] [place], [place] [address]Zw Panel Informationon [id number] Study observation (narrative)[facility] HealthcareT4 SerPl-mCncon [id number] [Mass/Vol]0.6 ug/dLLow5.5-10.2CSt. [facility] on above:Order Comment: Specimen Type: BLOOD SPECIMENOrdering Facility: [facility] Address:[address] [place], [place] [address]Performed By: #### 3026-2 ####[facility] LABCLIA [id number] [facility] [id number] [place] [address] [place] SerPl-aCncon [id number] Qn 3.310 m[IU]/LNormal0.270-4.200[facility] of [facility] on above:Order Comment: Specimen Type: BLOOD SPECIMENOrdering Facility: [facility] Address:[address] [place] [id number] By: #### 3016-3 ####[facility] LABCLIA [id number] [address] [place] [address] [place]#### 66610-9 ####[facility] LABCLIA [id number] [place], [place] [address]TCFOrd 96-15-6528CPAMCtxfnaopu (RADTSA) MANISH ROOT ([id number]) 1945 M Date Time Provider Department 10/27/24 [...] Fully Assessed Reason for Visit: Lab Orders [168] Primary Visit Diagnosis: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] Order(s):T4/THYROXINE [SQT4] Order #: [id number] FUTURE THYROID STIMULATING HORMONE [SQTSH] Order #: [id number] FUTURE THYROID STIMULATING HORMONE [SQTSH] Order #: [id number] FUTURE Prescriptions as of 10/29/2024 - cholecalciferol, [...] [E74.*02/11/2023 Encounter Status:Closed by NELA ANTOINE on 10/29/24NoKettering Health Washington TownshipXR CERVICAL SPINE 2-3Von 35-74-0757[place]ngLock[place], [place] [address] XRay Report Signed Patient: MANISH ROOT MR#: [id number] : 1945 Acct:[id number] Age/Sex: 78 / M ADM Date: 10/13/24 Loc: RAD Attending Dr: MASON JOHNSON Ordering Physician: MASON JOHNSON Date of Service: 10/13/24 Procedure(s): XR cervical spine 2-3V Accession Number(s): [id number] cc: MASON JOHNSON [address] [address] Patient Name: MANISH ROOT MRN: [id number] date: 1945 Sex: M Assigned Patient Location: RAD Current Patient Location: RAD Accession/Order Number: [id number] Exam Date: 10/13/2024 10:38 Report Date: 10/13/2024 [...] Eric Alcaraz M.D.10/13/2024 10:40 AM Dictation Location: [place] [address] Electronically authenticated by: [id number] Y Date: 10/13/2024 10:40 Dictated By: Eric Alcaraz D.O. Signed By: 10/13/24 1043 DD/ 1040 TD/TT: Radio Personality:TBHRadiology, Radiologist, MD - 10/13/2024 [place] [address] XRay Report Signed Patient: MANISH ROOT MR#: [id number] : 1945 Acct:[id number] Age/Sex: 78 / M ADM Date: 10/13/24 Loc: RAD Attending Dr: MASON JOHNSON Ordering Physician: MASON JOHNSON Date of Service: 10/13/24 Procedure(s): XR cervical spine 2-3V Accession Number(s): [id number] cc: MASON JOHNSON [place] [id number] Patient Name: MANISH ROOT MRN: [id number] date: 1945 Sex: M Assigned Patient Location: [facility] Current Patient Location: [facility] Accession/Order Number: [id number] Exam Date: 10/13/2024 10:38 Report Date: 10/13/2024 [...] Eric Alcaraz M.D.10/13/2024 10:40 AM Dictation Location: [place] [address] Electronically authenticated by: [id number] Y Date: 10/13/2024 10:40 Dictated By: Eric Alcaraz D.O. Signed By: 10/13/24 1043 DD/ 1040 TD/TT: Radio Personality: [facility] HealthcareRadiology Study observation (narrative)N[facility]S HealthcareXR CERVICAL SPINE 2-3VOrdered By: Radiologist Radiology on 28-04-0873[facility] Work Phone: XR HIP LT MIN 2Von 39-69-2364[place]Lock[place] [address] XRay Report Signed Patient: MANISH ROOT MR#: [id number] : 1945 Acct:[id number] Age/Sex: 78 / M ADM Date: 10/13/24 Loc: RAD Attending Dr: MASON JOHNSON Ordering Physician: MASON JOHNSON Date of Service: 10/13/24 Procedure(s): XR hip LT min 2V Accession Number(s): [id number] cc: MASON JOHNSON [place] [id number] Patient Name: MANISH ROOT MRN: [id number] date: 1945 Sex: M Assigned Patient Location: RAD Current Patient Location: [facility] Accession/Order Number: [id number] Exam Date: 10/13/2024 10:37 Report Date: 10/13/2024 [...] Eric Alcaraz M.D.10/13/2024 10:38 AM Dictation Location: [place] [address] Electronically authenticated by: [id number] Y Date: 10/13/2024 10:38 Dictated By: Eric Alcaraz D.O. Signed By: 10/13/24 1041 DD/ 1038 TD/TT: Radio Personality:TBHRadiology, Radiologist, - 10/13/2024 [place] [address] XRay Report Signed Patient: MANISH ROOT MR#: [id number] : 1945 Acct:[id number] Age/Sex: 78 / M ADM Date: 10/13/24 Loc: [facility] Attending Dr: MASON JOHNSON Ordering Physician: MASON JOHNSON Date of Service: 10/13/24 Procedure(s): XR hip LT min 2V Accession Number(s): [id number] cc: MASON JOHNSON [place] [id number] Patient Name: MANISH ROOT MRN: [id number] date: 1945 Sex: M Assigned Patient Location: [facility] Current Patient Location: [facility] Accession/Order Number: [id number] Exam Date: 10/13/2024 10:37 Report Date: 10/13/2024 [...] Eric Alcaraz M.D.10/13/2024 10:38 AM Dictation Location: [place] [address] Electronically authenticated by: [id number] Y Date: 10/13/2024 10:38 Dictated By: Eric Alcaraz D.O. Signed By: 10/13/24 1041 DD/ 1038 TD/TT: Radio Personality: [facility] MASSACHUSETTSAmbika HealthcareRadiology Study observation (narrative)[facility] HealthcareXR HIP LT MIN 2VOrdered By: Radiologist Radiology on 01-54-0257MMJZ [employer] Work Phone: No Panel Informationon 55-66-7265MKZALafayette Regional Health Center HealthcarePSA, TOTALon 67-15-1566RUP, TOTAL1.15 ng/mLNormal< OR = 4.00Quest DiagnosticsComment on above:Order Comment: FASTING:YES FASTING: YESResult Comment: The total PSA value from this [...] evidence of the presence or absence of disease.Performed By: #### 5363 #### [facility] [address], [address] [place] [address] Spinning Lathe Operator: Maged Olson MDLaboratory - Hematology and Cell countson 03-86-7985YkC8h (Bld) [Mass fraction]6.9 %[facility] [employer]No Panel Informationon 20-46-3827EETK [employer] SolutionsNo Panel Informationon 31-82-2098RVXH HealthcareCNOVon 90-08-1217LAQHBmendj Visit (RADTSA) MANISH ROOT ([id number]) 1945 M Date Time Provider Department 05/06/24 [...] Lymph 1.00 - 4.00 k/uL 0.48 (L) [place]% % 10.4 Abs [place] <0.87 k/uL 0.32 Eosin% % 1.6 Abs [...] significant neck swelling RESPIRATORY: (more content not included)...NormalWadsworth-Rittman Hospital CNOVSPon 33-95-0504SPPUIKTdjfy (SP) Office (HEMSARTHAK) MANISH ROOT ([id number]) 1945 M Date Time Provider Department 05/06/24 3:20 PM JOHN ENGLAND During your visit today, we recorded the following information about you: Temperature Pulse Respiration Blood pressure 97.8 degrees 60/minute 18/minute 122/73 Weight Height 86.7 kg 1.669 m John England MD 05/09/2024 10:42 AM Signed NAME: Manish Root [facility] NO.: [id number] DATE OF SERVICE: May 06, 2024 (Jacquelyn) [...] Ca Stage 3 - 2/5 LN + [place] regimen on protocol Updated Visit, May 06, [...] of abnormalities. Kidney function (more content not included)...NormalWadsworth-Rittman Hospital CBC W Auto Differential panel (Bld)on 53-37-9969Rrgdgbusv (Bld) [#/Vol]0.03 10*3/uLNIMarion HospitalDifferential cell count method Nom (Bld)AutoCleveland ClinicEosinophils (Bld) [#/Vol]0.06 10*3/uLNIMarion HospitalImmature granulocytes (Bld) [#/Vol]NINFClevelAdams County Regional Medical CenterImmature granulocytes/100 WBC (Bld)0.6 %[facility] Medical CenterLymphocytes (Bld) [#/Vol]0.46 10*3/uLLowGilead ClinicMonocytes (Bld) [#/Vol]0.30 10*3/uLNIMarion HospitalNeutrophils (Bld) [#/Vol]2.59 10*3/uLCommunity Regional Medical CenterNucleated RBC (Bld) [#/Vol]NINFCleveland ClinicNucleated RBC/100 WBC (Bld) [Ratio]0.0 %/100 WBCCommunity Regional Medical CenterPlatelet mean volume (Bld) [Entitic vol]9.4 fL9.0 - 12.7 fLCleveland ClinicPlatelets (Bld) [#/Vol]206 10*3/uLCommunity Regional Medical CenterWBC (Bld) [#/Vol]3.46 10*3/uLLow Gilead ClinicBasophils (Bld) [#/Vol]0.03 10*3/uLNormal<0.11CSt. John of God Hospital on above:Order Comment: Specimen Type: BLOOD SPECIMENOrdering Facility: [facility] Address:[address] [place], [place] [address]Performed By: #### 35356-1 ####[facility] LABCLIA [id number] [place], [place] [address]Luuzwciea/100 WBC (Bld)0.9 % NormalOur [facility] of [facility] on above:Order Comment: Specimen Type: BLOOD SPECIMENOrdering Facility: [facility] Address:[address] [place], [place] [address]Performed By: #### 39666-4 ####[facility] LABCLIA [id number] [place] [address] Differential cell count method Nom (Bld)AutoNormalCSelect Medical Specialty Hospital - [facility] Comment on above:Order Comment: Specimen Type: BLOOD SPECIMENOrdering Facility: [facility] Address:[address] [place] [address] Performed By: #### 94513-6 ####[facility] LABCLIA [id number] [place], [place] [address]Atejjilkkiv (Bld) [#/Vol]0.06 10*3/uLNormal<0.46[facility] on above:Order Comment: Specimen Type: BLOOD SPECIMENOrdering Facility: [facility] Address:[address] [place], [place] [address]Performed By: #### 21133-3 ####[facility] LABCLIA [id number] [place], [place] [address]Obbginmudnr/100 WBC (Bld)1.7 %NormalOur Lady of [facility] on above:Order Comment: Specimen Type: BLOOD SPECIMENOrdering Facility: [facility] Address:[address] [place], [place] [address]Performed By: #### 45553-4 ####[facility] LABCLIA [id number] [place], [place] [address]Qnzzmbxstzw distribution width (RBC) [Ratio]14.4 %Kbfuep55.5-15.0[facility] on above: Order Comment: Specimen Type: BLOOD SPECIMENOrdering Facility: [facility] Address:[address] [place], [place] [address]Performed By: #### 13340- 8 ####[facility] LABCLIA [id number] [place], [place] [address]Vwrprlppmc (Bld) [Volume fraction]38.4 %Low39.0-51.0 [facility] on above:Order Comment: Specimen Type: BLOOD SPECIMENOrdering Facility: [facility] Address:[address] [place], [place] [address]Performed By: #### 15927-4 ####[facility] LABIA [id number] [place], [place] [address]Aprfqqsdqp (Bld) [Mass/Vol]13.3 g/lUCerofb73.0-17.0[facility] on above: Order Comment: Specimen Type: BLOOD SPECIMENOrdering Facility: [facility] Address:[address] [place], [place] [address]Performed By: #### 88323- 8 ####[facility] LABIA [id number] [place], [place] [address]Ldskiydq granulocytes (Bld) [#/Vol]10*3/uLNormal<0.10 [facility] on above:Order Comment: Specimen Type: BLOOD SPECIMENOrdering Facility: [facility] Address:[address] [place], [place] [address]Performed By: #### 16940-7 ####[facility] LABIA [id number] [place], [place] [address]Vughbllc granulocytes/100 WBC (Bld)0.6 %NormalCleveland Clinic ClevelandComment on above: Order Comment: Specimen Type: BLOOD SPECIMENOrdering Facility: [facility] Address:[address] [place], [place] [address]Performed By: #### 59270- 8 ####[facility] LABCLIA [id number] [place], [place] [address]Ydniifneqec (Bld) [#/Vol]0.46 10*3/uLLow1.00-4.00 [facility] on above:Order Comment: Specimen Type: BLOOD SPECIMENOrdering Facility: [facility] Address:[address] [place], [place] [address]Performed By: #### 24675-1 ####[facility] LABCLIA [id number] [place], [place] [address]Okbkqoslhfm/100 WBC (Bld)13.3 %NormalOur Lady of [facility] on above:Order Comment: Specimen Type: BLOOD SPECIMENOrdering Facility: [facility] Address:[address] [place], [place] [address]Performed By: #### 75737-8 ####[facility] LABCLIA [id number] [place], [place] [address]WNA (RBC) [Entitic mass]31.9 nqHaiiak50.0-34.0[facility] on above:Order Comment: Specimen Type: BLOOD SPECIMENOrdering Facility: [facility] Address:[address] [place], [place] [address]Performed By: #### 34183-0 ####[facility] LABCLIA [id number] [place], [place] [address]GPHH (RBC) [Mass/Vol]34.6 g/qZBiecpf92.5-36.0[facility] on above: Order Comment: Specimen Type: BLOOD SPECIMENOrdering Facility: [facility] Address:[address] [place], [place] [address]Performed By: #### 94629- 8 ####[facility] LABCLIA [id number] [place], [place] [address]QEN (RBC) [Entitic vol]92.1 pQNxcrji13.0-100.0[facility] on above:Order Comment: Specimen Type: BLOOD SPECIMENOrdering Facility: [facility] Address:[address] [place], [place] [address]Performed By: #### 00812-1 ####[facility] LABCLIA [id number] [place], [place] [address]Oihmnamzn (Bld) [#/Vol]0.30 10*3/uLNormal<0.87[facility] on above:Order Comment: Specimen Type: BLOOD SPECIMENOrdering Facility: [facility] Address:[address] [place], [place] [address]Performed By: #### 49804- 8 ####[facility] LABCLIA [id number] [place], [place] [address]Tzhsxhcch/100 WBC (Bld)8.7 %NormalOur Lady of [facility] on above:Order Comment: Specimen Type: BLOOD SPECIMENOrdering Facility: [facility] Address:[address] [place], [place] [address]Performed By: #### 34791-2 ####[facility] LABCLIA [id number] [place], [place] [address]Rzjvtusdzrw (Bld) [#/Vol]2.59 10*3/uLNormal1.45-7.50[facility] on above:Order Comment: Specimen Type: BLOOD SPECIMENOrdering Facility: [facility] Address:[address] [place], [place] [address]Performed By: #### 44797-0 ####[facility] LABCLIA [id number] [place], [place] [address]Zfqarwkmuuu/100 WBC (Bld)74.8 %NormalOur Lady of [facility] on above:Order Comment: Specimen Type: BLOOD SPECIMENOrdering Facility: [facility] Address:[address] [place], [place] [address]Performed By: #### 36080-4 ####[facility] LABCLIA [id number] [place], [place] [address]Zdvqagshs RBC (Bld) [#/Vol] 10*3/uLNormal<0.01[facility] on above:Order Comment: Specimen Type: BLOOD SPECIMENOrdering Facility: [facility] Address:[address] [place], [place] [address]Performed By: #### 86542-5 ####[facility] LABCLIA [id number] [place], [place] [address]Cnippnkdo RBC/100 WBC (Bld) [Ratio]0.0 /100 WBCNormal [facility] on above:Order Comment: Specimen Type: BLOOD SPECIMENOrdering Facility: [facility] Address:[address] [place], [place] [address]Performed By: #### 34508-3 ####[facility] LABCLIA [id number] [place], [place] [address]Vmfbuhaq mean volume (Bld) [Entitic vol]9.4 fLNormal9.0-12.7CSt. John of God Hospital on above:Order Comment: Specimen Type: BLOOD SPECIMENOrdering Facility: [facility] Address:[address] [place] [address] Performed By: #### 18182-0 ####[facility] LABCLIA [id number] [place], [place] [address]Qhihxxmhe (Bld) [#/Vol]206 10*3/gARdlohw801-060CkfldrgdcOur Lady of [facility] on above:Order Comment: Specimen Type: BLOOD SPECIMENOrdering Facility: [facility] Address:[address] [place], [place] [address]Performed By: #### 19204-8 ####[facility] LABCLIA [id number] [place], [place] [address]YCP (Bld) [#/Vol]4.17 10*6/uLLow4.20-6.00[facility] on above:Order Comment: Specimen Type: BLOOD SPECIMENOrdering Facility: [facility] Address:[address] [place], [place] [address]Performed By: #### 02095-6 ####[facility] [id number] [place], [place] [address]HTV (Bld) [#/Vol]3.46 10*3/uL Low3.70-11.00[facility] on above:Order Comment: Specimen Type: BLOOD SPECIMENOrdering Facility: [facility] Address:[address] [place], [place] [address]Performed By: #### 16771-6 ####[facility] [id number] [place] [address] [facility] CBC W AUTO DIFF BLDon 80-84-2066UKT BASOPHILS # BLD AUTO0.03NIHancock County Hospital DIFFERENTIAL METHOD BLDAutoNOMFreeman Orthopaedics & Sports Medicine EOSINOPHIL # BLD AUTO0.06NIHancock [facility] Hospital LYMPHOCYTES # BLD AUTO0.46[facility] MONOCYTES # BLD AUTO0.3NIHancock County Hospital NEUTROPHILS # BLD AUTO2.59NOSSM [facility] NRBC # BLD AUTO<0.01NIHancock [facility] Hospital NRBC/100 WBC BLD-RTO0 /100 WBCNOSSM [facility] PLATELET # BLD PYRN244EIKZSSM [facility] PMV BLD AUTO 9.4 fL9.0 - 12.7 fLNOSSM [facility] WBC # BLD AUTO3.46LowNOChristian HospitalIM GRANULOCYTES # BLD AUTO<0.03NIMethodist [facility] Hospital GRANULOCYTES/LEUK NFR BLD AUTO0.6 %NOMS HealthcareSpecimen Type: BLOOD SPECIMEN [facility] Address: [address] [place] [address] Original Ordering Provider: JOHN HARVEYLINISYNCCT CHEST W IVCONon 33-57-3984TV CHEST W IVCON* * *Final Report* * * DATE OF [...] any questions regarding this interpretation, please call [phone]. If you are unable to reach us at the number above, please feel free to contact [facility] at [phone]. [id number]-Rittman HospitalCT Chest W contrast [place] 75-68-3802KSJWFVGVLZ: 1. No interval change since 10/16/23. 2. [...] any questions regarding this interpretation, please call [phone]. If you are unable to reach us at the number above, please feel free to contact [facility] at [phone].DIVISION OF RADIOLOGY* * *Final Report* * * DATE OF [...] Localizer images: No additional findings. DIVISION OF RADIOLOGYProvider, [facility] - 04/23/2024 * * *Final Report* * [...] any questions regarding this interpretation, please call [phone]. If you are unable to reach us at the number above, please feel free to contact [facility] eRadiology at [phone]. [facility] CenterCT NECK SOFT TISSUE W IVCONon 91-39-8735KU NECK SOFT TISSUE W IVCON* * *Final Report* * * DATE OF EXAM: Apr 23 2024 9:58AM [facility] 0013 - CT NECK SOFT TISSUE [...] a moderate-severe central stenosis at C4-5, unchanged. Automation Consultant (topogram) images: No additional findings. IMPRESSION: 1. [...] any questions regarding this interpretation, please call [phone]. If you are unable to reach us at the number above, please feel free to contact [facility] eRadiology at [phone]. [id number] Health Barber[facility] Campus Neck W contrast [place] 49-95-0315GJSDHRZVQQ: 1. STABLE POSTTREATMENT CHANGES AT LEFT BASE [...] any questions regarding this interpretation, please call [phone]. If you are unable to reach us at the number above, please feel free to contact [facility] eRadiology at [phone].DIVISION OF RADIOLOGY* * *Final Report* * * DATE OF EXAM: Apr 23 2024 9:58AM [facility] 0013 - CT NECK SOFT TISSUE [...] a moderate-severe central stenosis at C4-5, unchanged. Automation Consultant (topogram) images: No additional findings. DIVISION OF RADIOLOGYProvider, [facility] - 04/23/2024 * * *Final Report* * * DATE OF EXAM: Apr 23 2024 9:58AM [facility] 0013 - CT NECK SOFT TISSUE [...] a moderate-severe central stenosis at C4-5, unchanged. Automation Consultant (topogram) images: No additional findings. IMPRESSION IMPRESSION: [...] any questions regarding this interpretation, please call [phone]. If you are unable to reach us at the number above, please feel free to contact [facility] eRadiology at [phone]. [facility] Medical CenterCT Neck W contrast IVOrdered By: Ccf Provider on 04-23-2024 [facility] Medical CenterComprehensive metabolic 2000 panelOrdered By: Moustapha Calderon on 62-99-6584Sfcacwr [Mass/Vol]4.2 g/dL3.9 - 4.9 g/dLGilead ClinicALP [Catalytic activity/Vol]48 U/L38 - 113 U/LCleveland ClinicALT [Catalytic activity/Vol]14 U/L10 - 54 U/LCleveland ClinicAnion gap [Moles/Vol]8 mmol/L8 - 15 mmol/L Gilead ClinicAST [Catalytic activity/Vol]15 U/L14 - 40 U/LCleveland [facility] Bilirubin [Mass/Vol]0.5 mg/dL0.2 - 1.3 mg/dLGilead ClinicCalcium [Mass/Vol] 9.5 mg/dL8.5 - 10.2 mg/dLGilead ClinicChloride [Moles/Vol]103 mmol/L98 - 107 mmol/LCleveland ClinicCO2 [Moles/Vol]30 mmol/L22 - 30 mmol/LCleveland Clinic Creatinine [Mass/Vol]1.32 mg/dLHigh0.73 - 1.22 mg/dLCommunity Regional Medical CenterGFR/1.73 sq M.predicted among non-blacks MDRD (S/P/Bld) [Vol rate/Area]55 mL/min/{1.73_m2} Low- PINFCleveland ClinicComment on above:Estimated Glomerular Filtration Rate (eGFR) is calculated using the 2020 CKD-EPI creatinine equation. This equation utilizes serum creatinine, sex, and age as parameters. The creatinine assay has traceable calibration to isotope dilution-mass spectrometry. Refer to KDIGO guidelines for clinical interpretation. In patients with unstable renal function, e.g. those with acute kidney injury, the eGFRmay not accurately reflect actual GFR.Glucose [Mass/Vol]146 mg/cMJxrj27 - 99 mg/dLCommunity Regional Medical Center Comment on above:The [place] Diabetes Association (ADA) provides guidance for cutoff [...] Standards of Medical Care in Diabetes 2016, [place] [employer] Association. Diabetes Care. 2016.39(Suppl 1). Interpretation and review of laboratory resultsAbnormalCleveland ClinicPotassium [Moles/Vol]4.3 mmol/L3.7 - 5.1 mmol/LCthe university of toledo medical center ClinicProtein [Mass/Vol]6.6 g/dL 6.3 - 8.0 g/dLLima City Hospitalodium [Moles/Vol]141 mmol/L136 - 144 mmol/L [facility] Medical CenterUrea nitrogen [Mass/Vol]18 mg/dL9 - 24 mg/dLUniversity Hospitals Parma Medical CenterComprehensive metabolic 2000 panelon 99-67-5007Vvjjkge [Mass/Vol]4.2 g/dLNormal3.9-4.9CSt. John of God Hospital on above:Order Comment: Specimen Type: BLOOD SPECIMENOrdering Facility: [facility] Address:[address] [place], [place] [address]Pjzzhciim By: #### 37104- 8 ####[facility] LABCLIA [id number] [place], [place] [address]QQB [Catalytic activity/Vol]48 U/RMoencv92-517PhkrjkuuuOur Lady of [facility] on above:Order Comment: Specimen Type: BLOOD SPECIMENOrdering Facility: [facility] Address:[address] [place], [place] [address]Performed By: #### 90629-8 ####[facility] LABCLIA [id number] [address] [facility]ONS[facility] MEDICAL CENTERJEEVANAVENIR BEHAVIORAL HEALTH CENTER AT SUR[place]ISEGLENMINIER, [place] [address]CXS [Catalytic activity/Vol]14 U/CJnwfvi53-34AoatgupbuOur Lady of [facility] on above:Order Comment: Specimen Type: BLOOD SPECIMENOrdering Facility: [facility] Address:[address] [place], [place] [address]Performed By: #### 64399- 8 ####[facility] LABCLIA [id number] [place], [place] [address]Ioqyg gap [Moles/Vol]8 mmol/LNormal8-15[facility] on above:Order Comment: Specimen Type: BLOOD SPECIMENOrdering Facility: [facility] Address:[address] [place], [place] [address]Performed By: #### 46049-8 ####[facility] CENTERJERMAINE [facility] LABCLIA [id number] [place], [place] [address]HMM [Catalytic activity/Vol]15 U/ZUmirof74-22JdwzbpuvwOur Lady of [facility] on above:Order Comment: Specimen Type: BLOOD SPECIMENOrdering Facility: [facility] Address:[address] [place], [place] [address]Performed By: #### 99351-2 ####[facility] LABCLIA [id number] [place] [address] Bilirubin [Mass/Vol]0.5 mg/dLNormal0.2-1.3CSt. John of God Hospital on above:Order Comment: Specimen Type: BLOOD SPECIMENOrdering Facility: [facility] Address:[address] [place], [place] [address]Performed By: #### 06965-0 ####[facility] LABCLIA [id number] [place], [place] [address]Weueamf [Mass/Vol]9.5 mg/dLNormal8.5-10.2CSt. John of God Hospital on above:Order Comment: Specimen Type: BLOOD SPECIMENOrdering Facility: [facility] Address:[address] [place], [place] [address]Performed By: #### 79259-0 ####[facility] LABCLIA [id number] [place], [place] [address]Jxkdhhfv [Moles/Vol]103 mmol/ANnzxvu99-669LyczeukvdOur Lady of [facility] on above: Order Comment: Specimen Type: BLOOD SPECIMENOrdering Facility: [facility] Address:[address] [place], [place] [address]Performed By: #### [id number] ####[facility] LABCLIA [id number] [place], [place] [id number] [Moles/Vol]30 mmol/JVpjxdg33-67BbrplmsloOur [facility] on above:Order Comment: Specimen Type: BLOOD SPECIMENOrdering Facility: [facility] Address:[address] [place], [place] [address]Performed By: #### 99079-4 ####[facility] LABCLIA [id number] [place], [place] [address]Nfezoxfuab [Mass/Vol]1.32 mg/dL High0.73-1.22[facility] on above:Order Comment: Specimen Type: BLOOD SPECIMENOrdering Facility: [facility] Address:[address] [place], [place] [address]Performed By: #### 13598-1 ####[facility] LABCLIA [id number] [place] [address] Creatinine and Glomerular filtration rate.predicted panel (S/P/Bld)55 mL/min/1.73m???Low>=60[facility] on above:Order Comment: Specimen Type: BLOOD SPECIMENOrdering Facility: [facility] Address:[address] [place], [place] [address]Result Comment: Estimated Glomerular Filtration Rate (eGFR) is calculated using the 2020 CKD-EPI creatinine equation. This equation utilizes serum creatinine, sex, and age as parameters. The creatinine assay has traceable calibration to isotope dilution-mass spectrometry. Refer to KDIGO guidelines for clinical interpretation. In patients with unstable renal function, e.g. those with acute kidney injury, the eGFR may not accurately reflect actual GFR.Performed By: #### 25026-1 ####[facility] LABIA [id number] [place] [address] Glucose [Mass/Vol]146 mg/jCZofp58-45KqetcvuftOur Lady of [facility] on above: Order Comment: Specimen Type: BLOOD SPECIMENOrdering Facility: [facility] Address:[address] [place], [place] [address]Result Comment: The [place] Diabetes Association (ADA) provides guidance for cutoff values for fast ing glucose and random glucose. The ADA defines [...] Standards of Medical Care in Diabetes 2016, [place] [employer]. Diabetes Care. 2016.39(Suppl 1).Performed By: #### 13217-1 ####[facility] LABIA [id number] [place], [place] [address]Hqusgckxt [Moles/Vol]4.3 mmol/LNormal3.7-5.1CSt. John of God [facility] on above:Order Comment: Specimen Type: BLOOD SPECIMENOrdering Facility: [facility] Address:[address] [place], [place] [address]Kdovtzyar By: #### 86730-4 ####[facility] LABCLIA [id number] [place], [place] [address]Vypgyog [Mass/Vol]6.6 g/dLNormal6.3-8.0[facility] on above:Order Comment: Specimen Type: BLOOD SPECIMENOrdering Facility: [facility] Address:[address] [place], [place] [address]Performed By: #### 61085- 8 ####[facility] LABCLIA [id number] [place], [place] [address]Dognhp [Moles/Vol]141 mmol/IRkqkmx548-564XcrebrixtOur Lady of [facility] on above:Order Comment: Specimen Type: BLOOD SPECIMENOrdering Facility: [facility] Address:[address] [place], [place] [address]Performed By: #### 00118-6 ####[facility] LABCLIA [id number] [place], [place] [address]Ssur nitrogen [Mass/Vol]18 mg/dLNormal9-24[facility] on above:Order Comment: Specimen Type: BLOOD SPECIMENOrdering Facility: [facility] Address:[address] [place], [place] [address]Performed By: #### 19453-7 ####[facility] LABCLIA [id number] [place], [place] [address]SICTMWIYih 78-89-1801Jrfqngkz [Mass/Vol]158.0 ng/mL30.3 - 565.7 ng/mLCleveland ClinicFOLATE, SERUMon 39-66-6701Ypknsl [Mass/Vol]12.1 ng/mL4.7 - PINF ng/mLCleveland ClinicFerritin SerPl-mCncon 21-50-3443Yefexjbq [Mass/Vol]158.0 ng/dMQhekrt08.3-565.7ClevelUniversity Hospitals Lake West Medical Center on above: Order Comment: Specimen Type: BLOOD SPECIMENOrdering Facility: [facility] Address:[address] [place], [place] [address]Performed By: #### 2132- 9, 2276-4, 2284-8, 14635-9 ####[facility] LABCLIA [id number] [place] [address] [place] AMERICAFolate SerPl-mCncon 55-07-2710Ctbppi [Mass/Vol]12.1 ng/mLNormal>4.7CSt. John of God Hospital on above:Order Comment: Specimen Type: BLOOD SPECIMENOrdering Facility: [facility] Address:[address] [place], [place] [address]Performed By: #### 2132-9, 2276-4, 228-8, 97061-7 ####[facility] LABIA [id number] [place] [address] [place] AMERICAIron and Iron binding capacity panelon 04-23-2024 Interpretation and review of laboratory resultsNormalClevelAdams County Regional Medical CenterIron [Mass/Vol]78 ug/dL41 - 186 ug/dLCommunity Regional Medical CenterIron binding capacity [Mass/Vol] 300 ug/dL232 - 386 ug/dLCommunity Regional Medical CenterIron/TIBC [Molar ratio]26.0 %15.0 - 57.0 %[facility] VA Medical CenterIron [Mass/Vol]78 ug/jVSyhpta48-226PvvkxyfwpOur [facility] of [facility] on above:Order Comment: Specimen Type: BLOOD SPECIMENOrdering Facility: [facility] Address:[address] [place], [place] [address]Performed By: #### 2132-9, 2276-4, 228-8, 92129-1 ####[facility] LABIA [id number] [address] OF TRINITY HEALTH SYSTEMIron binding capacity [Mass/Vol] 300 ug/rFOzwigg421-200LyyeydtcbOur Lady of [facility] on above:Order Comment: Specimen Type: BLOOD SPECIMENOrdering Facility: [facility] Address:[address] [place], [place] [address]Performed By: #### 2132-9, 6-4, 4-8, 22924-1 ####[facility] LABIA [id number] [place] [id number] [place] OF AMERICAIron/TIBC [Molar ratio]26.0 %Qydfrg57.0-57.0Wadsworth-Rittman HospitalComment on above:Order Comment: Specimen Type: BLOOD SPECIMENOrdering Facility: [facility] Address:[address] [place], [place] [address]Performed By: #### 2132- 9, 2276-4, 2284-8, 81473-9 ####[facility] LABCLIA [id number] [facility] [address] [place] Laboratory - Hematology and Cell countson 65-99-8692Nxqvrlynj/100 WBC (Bld)0.9 % NOMSt. Louis Children'S HospitalEosinophils/100 WBC (Bld)1.7 %[facility]right Memorial HospitalErythrocyte distribution width (RBC) [Ratio]14.4 %11.5 - 15.0 %[facility] Memorial HospitalHematocrit (Bld) [Volume fraction]38.4 %Low39.0 - 51.0 %[facility] HospitalHemoglobin (Bld) [Mass/Vol]13.3 g/dL13.0 - 17.0 g/dLWright Memorial HospitalLymphocytes/100 WBC (Bld)13.3 %[facility] Memorial HospitalMCH (RBC) [Entitic mass]31.9 pg26.0 - 34.0 pgWright Memorial HospitalMCHC (RBC) [Mass/Vol]34.6 g/dL30.5 - 36.0 g/dLChildren's Mercy NorthlandV (RBC) [Entitic vol] 92.1 fL80.0 - 100.0 fLWright Memorial HospitalMonocytes/100 WBC (Bld)8.7 %[facility] Neutrophils/100 WBC (Bld)74.8 %[facility] Memorial HospitalRBC (Bld) [#/Vol]4.17 10*6/uLLow 4.20 - 6.00 m/uLWright Memorial HospitalNo Panel Informationon 62-96-7324Jlkfkesumiqwqq and review of laboratory resultsNormalCSalem City Hospital Interpretation and review of laboratory resultsAbnormalKindred Hospital HealthcareRadiology Study observation (narrative)Community Regional Medical CenterVITAMIN B12on 44-67-4971Npsaobxmy (Vitamin B12) [Mass/Vol]349 pg/mL232 - 1245 pg/mLCleveland ClinicVit B12 SerPl-mCncon 36-11-7589Limidnfse (Vitamin B12) [Mass/Vol]349 pg/mL Zcckvh158-8635Wbwsrjacs Alleghany HealthComment on above:Order Comment: Specimen Type: BLOOD SPECIMENOrdering Facility: [facility] Address:[address] [place], [place] [address]Performed By: #### 2132-9, 2276-4, 2284-8, 03931-4 ####[facility] LABCLIA [id number] [facility] [id number] STATES OF TRINITY HEALTH SYSTEMALL LIPID PROFILE (FASTING)on 97-59-0912JEID HDL RATIO4.1NOMS HealthcareComment on above:3.3 - 4.4 LOW RISK 4.4 - 7.1 AVERAGE RISK 7.1 - 11.0 MODERATE RISK >11.0 HIGH RISK Cholesterol [Mass/Vol]176 mg/dLNINF - 200 mg/dLNOIN HealthcareCholesterol in HDL [Mass/Vol]43 mg/dL40 - 60 mg/dLNOMS HealthcareComment on above:> or =60 mg/dl - LOW CARDIOVASCULAR RISK <40 mg/dl - HIGH CARDIOVASCULAR RISK Magnesium [Mass/Vol]115.8 mg/dLNOIN HealthcareComment on above:<100 mg/dl OPTIMAL 100-129 mg/dl NEAR OR ABOVE OPTIMAL 130-159 mg/dl BORDERLINE HIGH 160-189 mg/dl HIGH >190 mg/dl VERY HIGH Magnesium [Mass/Vol]17.2 mg/dLNOIN HealthcareTriglyceride [Mass/Vol]86 mg/dLNINF - 150 mg/dLNOIN HealthcareCLINISYNCNOMS HealthcareCT Chest W contrast Kinga 16-57-7283PDQMAYDGHX: 1. Stable appearance of patchy groundglass opacities [...] any questions regarding this interpretation, please call [phone]. If you are unable to reach us at the number above, please feel free to contact [facility] at [phone].DIVISION OF RADIOLOGY* * *Final Report* * * DATE OF EXAM: Oct 16 2023 12:43PM [facility] 05[facility] - CT CHEST W [...] Localizer images: No additional findings. DIVISION OF RADIOLOGYProvider, [facility]17[facility] * * *Final Report* * * DATE OF EXAM: Oct 16 2023 12:43PM [facility] 0539 - CT CHEST W [...] any questions regarding this interpretation, please call [phone]. If you are unable to reach us at the number above, please feel free to contact [facility] eRadiology at [phone]. [facility] Chest W contrast IVOrdered By: Ccf Provider on 10-17-2023 [facility] W Auto Differential panel (Bld)on 74-30-4715Rypugotjr (Bld) [#/Vol]NINFCPremier Health Miami Valley Hospital NorthBasophils/100 WBC (Bld)0.6 %[facility] Differential cell count method Nom (Bld)AutoCleveland ClinicEosinophils (Bld) [#/Vol]0.05 10*3/uLNINFCommunity Regional Medical CenterEosinophils/100 WBC (Bld)1.6 %[facility] Medical CenterErythrocyte distribution width (RBC) [Ratio]13.8 %11.5 - 15.0 %[facility] Medical CenterHematocrit (Bld) [Volume fraction]37.9 %Low39.0 - 51.0 %[facility] Hemoglobin (Bld) [Mass/Vol]12.6 g/dLLow13.0 - 17.0 g/dLCommunity Regional Medical CenterImmature granulocytes (Bld) [#/Vol]NINFClevelAdams County Regional Medical CenterImmature granulocytes/100 WBC (Bld)0.6 %[facility] CenterInterpretation and review of laboratory results AbnormalCommunity Regional Medical CenterLymphocytes (Bld) [#/Vol]0.48 10*3/uLLowCommunity Regional Medical Center Lymphocytes/100 WBC (Bld)15.6 %[facility]arrison Community HospitalH (RBC) [Entitic mass]30.1 pg 26.0 - 34.0 pgClevelAdams County Regional Medical CenterMCHC (RBC) [Mass/Vol]33.2 g/dL30.5 - 36.0 g/dL Harrison Community HospitalV (RBC) [Entitic vol]90.7 fL80.0 - 100.0 fLCPremier Health Miami Valley Hospital North Monocytes (Bld) [#/Vol]0.32 10*3/uLNINFCommunity Regional Medical CenterMonocytes/100 WBC (Bld) 10.4 %[facility] Medical CenterNeutrophils (Bld) [#/Vol]2.19 10*3/[facility] Neutrophils/100 WBC (Bld)71.2 %[facility] Medical CenterNucleated RBC (Bld) [#/Vol]NINF [facility] Medical CenterNucleated RBC/100 WBC (Bld) [Ratio]0.0 %/100 WBCCommunity Regional Medical Center Platelet mean volume (Bld) [Entitic vol]9.1 fL9.0 - 12.7 fLCPremier Health Miami Valley Hospital North Platelets (Bld) [#/Vol]183 10*3/uLCommunity Regional Medical CenterRBC (Bld) [#/Vol]4.18 10*6/uL Low4.20 - 6.00 m/[facility] CenterWBC (Bld) [#/Vol]3.08 10*3/uLLowChillicothe VA Medical CenterCT Neck W contrast Kinga 38-07-1391PGNPFZAYZI: Primary: NI-RADS 1. Expected post-treatment changes in [...] any questions regarding this interpretation, please call [phone]. If you are unable to reach us at the number above, please feel free to contact [facility] eRadiology at [phone].DIVISION OF RADIOLOGY* * *Final Report* * * DATE OF EXAM: Oct 16 2023 12:43PM [facility] 0013 - CT NECK SOFT TISSUE [...] evaluation of the intrathoracic contents. DIVISION OF RADIOLOGYProvider, [facility] - 10/16/2023 * * *Final Report* * * DATE OF EXAM: Oct 16 2023 12:43PM [facility] 0013 - CT NECK SOFT TISSUE [...] any questions regarding this interpretation, please call [phone]. If you are unable to reach us at the number above, please feel free to contact [facility] eRadiology at [phone]. [facility] Medical CenterComprehensive metabolic 2000 panelOrdered By: Moustapha Calderon on 77-45-1101Txzexfv [Mass/Vol]4.4 g/dL3.9 - 4.9 g/dLGilead ClinicALP [Catalytic activity/Vol]48 U/L38 - 113 U/LCleveland ClinicALT [Catalytic activity/Vol]13 U/L10 - 54 U/LCleveland ClinicAnion gap [Moles/Vol]11 mmol/L9 - 18 mmol/LCleveland ClinicAST [Catalytic activity/Vol]15 U/L14 - 40 U/LCleveland ClinicBilirubin [Mass/Vol]0.5 mg/dL0.2 - 1.3 mg/dLCommunity Regional Medical Center Calcium [Mass/Vol]9.7 mg/dL8.5 - 10.2 mg/dLCommunity Regional Medical CenterChloride [Moles/Vol] 105 mmol/L97 - 105 mmol/LCleveland ClinicCO2 [Moles/Vol]26 mmol/L22 - 30 mmol/L [facility] CenterCreatinine [Mass/Vol]1.34 mg/dLHigh0.73 - 1.22 mg/dLCommunity Regional Medical CenterGFR/1.73 sq M.predicted among non-blacks MDRD (S/P/Bld) [Vol rate/Area]54 mL/min/{1.73_m2}Low- PINFCleveland ClinicComment on above:Estimated Glomerular Filtration Rate (eGFR) is calculated using the 2020 CKD-EPI creatinine equation. This equation utilizes serum creatinine, sex, and age as parameters. The creatinine assay has traceable calibration to isotope dilution-mass spectrometry. Refer to KDIGO guidelines for clinical interpretation. In patients with unstable renal function, e.g. those with acute kidney injury, the eGFRmay not accurately reflect actual GFR.Glucose [Mass/Vol]135 mg/dJKsor56 - 99 mg/dL [facility] on above:The [place] Diabetes Association (ADA) provides guidance for cutoff values for fasting glucose andrandom glucose. The ADA defines fasting as no caloric intake for at least 8 hours. Fasting plasma gl ucose results between 100 to 125 mg/dL indicate [...] Standards of Medical Care in Diabetes 2016, [place] Diabetes Association. Diabetes Care. 2016.39(Suppl 1). Interpretation and review of laboratory resultsAbnormalCleveland ClinicPotassium [Moles/Vol]4.5 mmol/L3.7 - 5.1 mmol/LCleveland ClinicProtein [Mass/Vol]6.7 g/dL 6.3 - 8.0 g/dLGilead ClinicSodium [Moles/Vol]142 mmol/L136 - 144 mmol/L [facility] CenterUrea nitrogen [Mass/Vol]22 mg/dL9 - 24 mg/dLUniversity Hospitals Parma Medical CenterNo Panel Informationon 34-62-4968Rzcuvnsfr Study observation (narrative)[facility] Chest W contrast [place] 41-58-4109DABNWQATNJ: 1. Since 03/14/2023, near complete resolution of [...] any questions regarding this interpretation, please call [phone]. If you are unable to reach us at the number above, please feel free to contact [facility] at [phone].DIVISION OF RADIOLOGY* * *Final Report* * * DATE OF EXAM: Jun 12 2023 8:15AM [facility] 0539 - CT CHEST W [...] noted are nonspecific noncalcified pulmonary nodules, with patient financial representative larger examples detailed as follows on [...] No abnormality in the imaged upper abdomen. Automation Consultant (topogram) images: No additional findings. DIVISION OF RADIOLOGYProvider, [facility] - 06/12/2023 * * *Final Report* * * DATE OF EXAM: Jun 12 2023 8:15AM [facility] 0539 - CT CHEST W [...] noted are nonspecific noncalcified pulmonary nodules, with patient financial representative larger examples detailed as follows on [...] No abnormality in the imaged upper abdomen. Automation Consultant (topogram) images: No additional findings. IMPRESSION IMPRESSION: [...] any questions regarding this interpretation, please call [phone]. If you are unable to reach us at the number above, please feel free to contact [facility] eRadiology at [phone]. [facility] Medical CenterRadiology Study observation (narrative)[facility] Chest W contrast IVOrdered By: Ccf Provider on 93-79-5491Qlisqsroq ClinicCT Chest W contrast Kinga 33-67-8555ZHFHNPDBSQ: 1. On patient's prior PET/CT from 01/29/2023, [...] any questions regarding this interpretation, please call [phone]. If you are unable to reach us at the number above, please feel free to contact [facility] at [phone].DIVISION OF RADIOLOGY* * *Final Report* * * DATE OF EXAM: Mar 14 2023 2:26PM [facility] 0539 - CT CHEST W [...] represent an infectious/inflammatory focus which is improving. Additionally, there is [...] No abnormality in the imaged upper abdomen. Automation Consultant (topogram) images: No additional findings. DIVISION OF RADIOLOGYProvider, [facility] - 03/15/2023 * * *Final Report* * * DATE OF EXAM: Mar 14 2023 2:26PM [facility] 0539 - CT CHEST W [...] represent an infectious/inflammatory focus which is improving. Additionally, there is [...] No abnormality in the imaged upper abdomen. Automation Consultant (topogram) images: No additional findings. IMPRESSION IMPRESSION: [...] any questions regarding this interpretation, please call [phone]. If you are unable to reach us at the number above, please feel free to contact [facility] at [phone]. [facility] ClinicCT Chest W contrast IVOrdered By: Ccf Provider on 03-15-2023 [facility] Chest W contrast [place] 89-84-8685Rwekrvgme Study observation (narrative)[facility] CenterGLUCOSE, BLOOD (POC)on 37-41-9927Iofmmoo [Mass/Vol] 124 mg/eWZpqzxcbv95 - 99 mg/dLCommunity Regional Medical CenterComment on above:Location:[facility], [address] [place] [address] , [place], [place], [facility] The Accu-Chek Inform II glucose meter has [...] above situations. Interpretation and review of laboratory resultsAbnormalCleveland University Hospitals Beachwood Medical CenterPET+CT Guidance for localization of tumor of Skull base to mid-thigh-- W 18F-FDG Kinga 31-49-9512UAVJLSPOOF: 1. Neck: No suspicious hypermetabolic foci. Posttreatment [...] any questions regarding this interpretation, please call [phone]. If you are unable to reach us at the number above, please feel free to contact [facility] eRadiology at [phone].DIVISION OF RADIOLOGY* * *Final Report* * * DATE OF [...] SKELETON: There are no hypermetabolic osseous lesions. Automation Consultant (topogram) images:No additional findings. DIVISION OF RADIOLOGYProvider, [facility] - 01/29/2023 * * *Final Report* * [...] SKELETON: There are no hypermetabolic osseous lesions. Automation Consultant (topogram) images:No additional findings. IMPRESSION IMPRESSION: 1. Neck: No suspicious hypermetabolic [...] any questions regarding this interpretation, please call [phone]. If you are unable to reach us at the number above, please feel free to contact [facility] at [phone]. 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-- W 18F-FDG IV Ordered By: Ccf Provider on 71-83-9718Uhrywxnks ClinicComprehensive metabolic 2000 panelon 38-85-1045Mkbfmrs [Mass/Vol]4.1 g/dL3.9 - 4.9 g/dLCommunity Regional Medical Center ALP [Catalytic activity/Vol]60 U/L38 - 113 U/LCleveland ClinicALT [Catalytic activity/Vol]27 U/L10 - 54 U/LCleveland ClinicAnion gap [Moles/Vol]10 mmol/L9 - 18 mmol/LCleveland ClinicAST [Catalytic activity/Vol]23 U/L14 - 40 U/LCleveland ClinicBilirubin [Mass/Vol]0.5 mg/dL0.2 - 1.3 mg/dLGilead ClinicCalcium [Mass/Vol]9.5 mg/dL8.5 - 10.2 mg/dLCommunity Regional Medical CenterChloride [Moles/Vol]96 mmol/L Low97 - 105 mmol/LCleveland ClinicCO2 [Moles/Vol]29 mmol/L22 - 30 mmol/L [facility] CenterCreatinine [Mass/Vol]0.96 mg/dL0.73 - 1.22 mg/dLCommunity Regional Medical Center Estimated Glomerular Filtration Rate81 mL/min/1.73m>=60 mL/min/1.73mCleveland ClinicGlucose [Mass/Vol]105 mg/aDXalg25 - 99 mg/dLCommunity Regional Medical CenterPotassium [Moles/Vol]4.2 mmol/L3.7 - 5.1 mmol/LCleveland ClinicProtein [Mass/Vol]6.8 g/dL 6.3 - 8.0 g/dLGilead ClinicSodium [Moles/Vol]135 mmol/UGnq481 - 144 mmol/L [facility] CenterUrea nitrogen [Mass/Vol]22 mg/dL9 - 24 mg/dLCommunity Regional Medical CenterCBC W Auto Differential panel (Bld)on 95-40-1835Gndjkxjpu (Bld) [#/Vol]<0.11 k/uL [facility] CenterBasophils/100 WBC (Bld)0.4 %[facility] CenterDifferential cell count method Nom (Bld)AutoCleveland ClinicEosinophils (Bld) [#/Vol]0.03 10*3/uL <0.46 k/uLCommunity Regional Medical CenterEosinophils/100 WBC (Bld)1.3 %[facility] Erythrocyte distribution width (RBC) [Ratio]13.2 %11.5 - 15.0 %[facility] Hematocrit (Bld) [Volume fraction]36.2 %Low39.0 - 51.0 %[facility] Hemoglobin (Bld) [Mass/Vol]12.3 g/dLLow13.0 - 17.0 g/dLCommunity Regional Medical CenterImmature granulocytes (Bld) [#/Vol]<0.10 k/uLCommunity Regional Medical CenterImmature granulocytes/100 WBC (Bld)0.4 %[facility] CenterLymphocytes (Bld) [#/Vol]0.27 10*3/uLLow1.00 - 4.00 k/uLCommunity Regional Medical CenterLymphocytes/100 WBC (Bld)12.0 %[facility] HospitalH (RBC) [Entitic mass]30.3 pg26.0 - 34.0 pgClevelTracy Medical CenterHC (RBC) [Mass/Vol] 34.0 g/dL30.5 - 36.0 g/dLHarrison Community HospitalV (RBC) [Entitic vol]89.2 fL80.0 - 100.0 fLCleveland ClinicMonocytes (Bld) [#/Vol]0.23 10*3/uL<0.87 k/uLGilead ClinicMonocytes/100 WBC (Bld)10.2 %[facility] Medical CenterNeutrophils (Bld) [#/Vol]1.70 10*3/uL1.45 - 7.50 k/uLGilead ClinicNeutrophils/100 WBC (Bld)75.7 %[facility] Medical CenterNucleated RBC (Bld) [#/Vol]<0.01 k/uLCommunity Regional Medical CenterNucleated RBC/100 WBC (Bld) [Ratio]0.0 /100 WBCGilead ClinicPlatelet mean volume (Bld) [Entitic vol]9.5 fL9.0 - 12.7 fLCleveland ClinicPlatelets (Bld) [#/Vol]97 10*3/xRJcg609 - 400 k/uLGilead ClinicRBC (Bld) [#/Vol]4.06 10*6/uLLow4.20 - 6.00 m/uL [facility] CenterWBC (Bld) [#/Vol]2.25 10*3/uLLow3.70 - 11.00 k/uLCommunity Regional Medical CenterComprehensive metabolic 2000 panelon 82-01-7147Esyjgda [Mass/Vol]4.2 g/dL 3.9 - 4.9 g/dLGilead ClinicALP [Catalytic activity/Vol]69 U/L38 - 113 U/L [facility]ilead ClinicALT [Catalytic activity/Vol]21 U/L10 - 54 U/LCPremier Health Miami Valley Hospital North Anion gap [Moles/Vol]11 mmol/L9 - 18 mmol/LCleveland ClinicAST [Catalytic activity/Vol]14 U/L14 - 40 U/LCleveland [facility] Hospital Of MinneapolisBilirubin [Mass/Vol]0.6 mg/dL0.2 - 1.3 mg/dLGilead ClinicCalcium [Mass/Vol]9.7 mg/dL8.5 - 10.2 mg/dLCommunity Regional Medical CenterChloride [Moles/Vol]99 mmol/L97 - 105 mmol/LCleveland ClinicCO2 [Moles/Vol]26 mmol/L22 - 30 mmol/LCleveland ClinicCreatinine [Mass/Vol]0.94 mg/dL0.73 - 1.22 mg/dLCommunity Regional Medical CenterEstimated Glomerular Filtration Rate83 mL/min/1.73m>=60 mL/min/1.73mCleveland [facility] Hospital Of MinneapolisGlucose [Mass/Vol]119 mg/hZVubx04 - 99 mg/dLCommunity Regional Medical CenterPotassium [Moles/Vol]4.1 mmol/L3.7 - 5.1 mmol/L Gilead ClinicProtein [Mass/Vol]6.7 g/dL6.3 - 8.0 g/dLGilead ClinicSodium [Moles/Vol]136 mmol/L136 - 144 mmol/LCleveland [facility] Of MinneapolisUrea nitrogen [Mass/Vol]20 mg/dL9 - 24 mg/dLGalion Hospital W Auto Differential panel (Bld)on [id number] (Bld) [#/Vol]<0.11 k/uLCommunity Regional Medical CenterBasophils/100 WBC (Bld)0.2 %[facility] CenterDifferential cell count method Nom (Bld)AutoCleveland ClinicEosinophils (Bld) [#/Vol]0.04 10*3/uL<0.46 k/uLCommunity Regional Medical Center Eosinophils/100 WBC (Bld)0.8 %[facility] Medical CenterErythrocyte distribution width (RBC) [Ratio]13.1 %11.5 - 15.0 %[facility] Medical CenterHematocrit (Bld) [Volume fraction]39.8 %39.0 - 51.0 %[facility] Medical CenterHemoglobin (Bld) [Mass/Vol]13.4 g/dL 13.0 - 17.0 g/dLCommunity Regional Medical CenterImmature granulocytes (Bld) [#/Vol]<0.10 k/uL [facility] CenterImmature granulocytes/100 WBC (Bld)0.4 %[facility] Lymphocytes (Bld) [#/Vol]0.40 10*3/uLLow1.00 - 4.00 k/uLCommunity Regional Medical Center Lymphocytes/100 WBC (Bld)7.8 %[facility] Community HospitalH (RBC) [Entitic mass]30.3 pg 26.0 - 34.0 pgCSelect Medical Specialty Hospital - Cincinnati NorthHC (RBC) [Mass/Vol]33.7 g/dL30.5 - 36.0 g/dL [facility] Community HospitalV (RBC) [Entitic vol]90.0 fL80.0 - 100.0 fLCPremier Health Miami Valley Hospital North Monocytes (Bld) [#/Vol]0.34 10*3/uL<0.87 k/uLCommunity Regional Medical CenterMonocytes/100 WBC (Bld)6.6 %[facility] Medical CenterNeutrophils (Bld) [#/Vol]4.31 10*3/uL1.45 - 7.50 k/uL [facility] CenterNeutrophils/100 WBC (Bld)84.2 %[facility] CenterNucleated RBC (Bld) [#/Vol]<0.01 k/uLCommunity Regional Medical CenterNucleated RBC/100 WBC (Bld) [Ratio]0.0 /100 WBCGilead ClinicPlatelet mean volume (Bld) [Entitic vol]9.4 fL9.0 - 12.7 fLCleveland ClinicPlatelets (Bld) [#/Vol]198 10*3/uL150 - 400 k/uLGilead ClinicRBC (Bld) [#/Vol]4.42 10*6/uL4.20 - 6.00 m/uLGilead ClinicWBC (Bld) [#/Vol]5.12 10*3/uL3.70 - 11.00 k/uLCommunity Regional Medical CenterComprehensive metabolic 2000 panelon 37-02-2555Vtndhfg [Mass/Vol]4.4 g/dL3.9 - 4.9 g/dLGilead ClinicALP [Catalytic activity/Vol]70 U/L38 - 113 U/LCleveland ClinicALT [Catalytic activity/Vol]22 U/L10 - 54 U/LCleveland ClinicAnion gap [Moles/Vol]8 mmol/LLow9 - 18 mmol/LCleveland ClinicAST [Catalytic activity/Vol]15 U/L14 - 40 U/L [facility] CenterBilirubin [Mass/Vol]0.4 mg/dL0.2 - 1.3 mg/dLCommunity [facility] Center Calcium [Mass/Vol]9.8 mg/dL8.5 - 10.2 mg/dLCommunity Regional Medical CenterChloride [Moles/Vol] 99 mmol/L97 - 105 mmol/LCleveland ClinicCO2 [Moles/Vol]28 mmol/L22 - 30 mmol/L [facility] CenterCreatinine [Mass/Vol]0.83 mg/dL0.73 - 1.22 mg/dLCommunity [facility] Center Estimated Glomerular Filtration Rate90 mL/min/1.73m>=60 mL/min/1.73mCleveland Regency Hospital Of MinneapolisGlucose [Mass/Vol]125 mg/eYEvme89 - 99 mg/dLCommunity Regional Medical CenterPotassium [Moles/Vol]4.1 mmol/L3.7 - 5.1 mmol/LCleveland ClinicProtein [Mass/Vol]6.8 g/dL 6.3 - 8.0 g/dLGilead ClinicSodium [Moles/Vol]135 mmol/GSsb327 - 144 mmol/L [facility] CenterUrea nitrogen [Mass/Vol]28 mg/dLHigh9 - 24 mg/dLCommunity [facility] Center PET+CT Guidance for localization of tumor of Skull base to mid-thigh-- W 18F-FDG Kinga 77-11-7791KRTRBJRKOM: 1. NECK: * Intensely FDG avid left [...] any questions regarding this interpretation, please call [phone]. If you are unable to reach us at the number above, please feel free to contact [facility] eRadiology at [phone].DIVISION OF RADIOLOGY* * *Final Report* * * DATE OF [...] age-related degenerative changes. No destructive osseous lesions. Automation Consultant (topogram) images: No additional findings. DIVISION OF RADIOLOGYProvider, [facility] - 08/28/2022 * * *Final Report* * [...] age-related degenerative changes. No destructive osseous lesions. Automation Consultant (topogram) images: No additional findings. IMPRESSION IMPRESSION: [...] any questions regarding this interpretation, please call [phone]. If you are unable to reach us at the number above, please feel free to contact [facility] eRadiology at [phone]. [facility] CenterPET+CT Guidance for localization of tumor of Skull base to mid-thigh-- W 18F-FDG IVOrdered By: Ccf Provider on 46-90-6540Czhfsofym Clinic GLUCOSE, BLOOD (POC)on 98-89-5201Jjkgsbs [Mass/Vol]137 mg/zHUrnqqjkn31 - 99 mg/dLCommunity Regional Medical CenterComment on above:Location:[facility], [address] [place] [address] , [place], [place], [address] The Accu-Chek Inform II glucose meter has [...] above situations. Interpretation and review of laboratory resultsAbnormalCSalem City HospitalPET+CT Guidance for localization of tumor of Skull base to mid-thigh-- W 18F-FDG Kinga 71-72-6832Qvlcxezon Study observation (narrative)[facility] CBC W Auto Differential panel (Bld)on 50-96-0866Ygwtykifr (Bld) [#/Vol]0.05 10*3/uL<0.11 k/uLCommunity Regional Medical CenterBasophils/100 WBC (Bld)0.8 %[facility] Differential cell count method Nom (Bld)AutoCPremier Health Miami Valley Hospital NorthEosinophils (Bld) [#/Vol]0.05 10*3/uL<0.46 k/uLCommunity Regional Medical CenterEosinophils/100 WBC (Bld)0.8 % [facility] CenterErythrocyte distribution width (RBC) [Ratio]13.2 %11.5 - 15.0 % [facility] CenterHematocrit (Bld) [Volume fraction]43.8 %39.0 - 51.0 %[facility] CenterHemoglobin (Bld) [Mass/Vol]14.7 g/dL13.0 - 17.0 g/dLCommunity [facility] Center Immature granulocytes (Bld) [#/Vol]<0.10 k/uLCommunity Regional Medical CenterImmature granulocytes/100 WBC (Bld)0.3 %[facility] CenterLymphocytes (Bld) [#/Vol]1.55 10*3/uL1.00 - 4.00 k/uLCommunity Regional Medical CenterLymphocytes/100 WBC (Bld)25.7 %[facility] HospitalH (RBC) [Entitic mass]30.6 pg26.0 - 34.0 pgClevelTracy Medical CenterHC (RBC) [Mass/Vol]33.6 g/dL30.5 - 36.0 g/dLHarrison Community HospitalV (RBC) [Entitic vol]91.3 fL80.0 - 100.0 fLClevelnovant health rowan medical center ClinicMonocytes (Bld) [#/Vol]0.51 10*3/uL<0.87 k/uL [facility] CenterMonocytes/100 WBC (Bld)8.5 %[facility] CenterNeutrophils (Bld) [#/Vol]3.85 10*3/uL1.45 - 7.50 k/uLCommunity Regional Medical CenterNeutrophils/100 WBC (Bld)63.9 %[facility] CenterNucleated RBC (Bld) [#/Vol]<0.01 k/uLCommunity Regional Medical CenterNucleated RBC/100 WBC (Bld) [Ratio]0.0 /100 WBCGilead ClinicPlatelet mean volume (Bld) [Entitic vol]9.4 fL9.0 - 12.7 fLCthe university of toledo medical center ClinicPlatelets (Bld) [#/Vol]340 10*3/uL150 - 400 k/uLCommunity Regional Medical CenterRBC (Bld) [#/Vol]4.80 10*6/uL4.20 - 6.00 m/uLCommunity Regional Medical CenterWBC (Bld) [#/Vol]6.03 10*3/uL3.70 - 11.00 k/uLCommunity Regional Medical CenterComprehensive metabolic 2000 panelon 47-67-4553Vxzqufq [Mass/Vol]4.6 g/dL 3.9 - 4.9 g/dLGilead ClinicALP [Catalytic activity/Vol]66 U/L38 - 113 U/L Gilead ClinicALT [Catalytic activity/Vol]16 U/L10 - 54 U/LCPremier Health Miami Valley Hospital North Anion gap [Moles/Vol]8 mmol/LLow9 - 18 mmol/LCleveland ClinicAST [Catalytic activity/Vol]19 U/L14 - 40 U/LCleveland ClinicBilirubin [Mass/Vol]0.5 mg/dL0.2 - 1.3 mg/dLGilead ClinicCalcium [Mass/Vol]10.0 mg/dL8.5 - 10.2 mg/dLClemercy health st. charles hospital ClinicChloride [Moles/Vol]102 mmol/L97 - 105 mmol/LCleveland ClinicCO2 [Moles/Vol]30 mmol/L22 - 30 mmol/LCleveland ClinicCreatinine [Mass/Vol]0.97 mg/dL0.73 - 1.22 mg/dLCommunity Regional Medical CenterEstimated Glomerular Filtration Rate80 mL/min/1.73m>=60 mL/min/1.73mCleveland ClinicGlucose [Mass/Vol]101 mg/nQWhnl94 - 99 mg/dLCommunity Regional Medical CenterPotassium [Moles/Vol]4.5 mmol/L3.7 - 5.1 mmol/L [facility] CenterProtein [Mass/Vol]7.5 g/dL6.3 - 8.0 g/dLGilead ClinicSodium [Moles/Vol]140 mmol/L136 - 144 mmol/LCleveland Regency Hospital Of MinneapolisUrea nitrogen [Mass/Vol]18 mg/dL9 - 24 mg/dLCommunity Regional Medical CenterPOINT OF CARE GLUCOSEon 91-70-0606Ggjgopm [Mass/Vol]149 mg/dLCritically yrqq76-773Vmb [facility] RehabilitationComment on above: Performed By: #### POCGLUC #### [facility] [address] [address] [address] 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 Correction, due 07/18/2025.[facility] AUTO DIFFon [id number] #0.0 103/ulNormal0.0-0.1The [facility] For RehabilitationComment on above: Performed By: #### CBC #### [facility] [address] [place] [address] Dr. Mikayla GalanBasophils/100 WBC (Bld)0.4 %Normal0.2-2.0[facility] Comment on above:Performed By: #### CBC #### [facility] [address] [place] [address] Dr. Mikayla Amor #0.1 103/ulNormal0.0-0.7The [facility] For RehabilitationComment on above: Performed By: #### CBC #### [facility] [address] [place] [address] Dr. Mikayla Gaonaosinophils/100 WBC (Bld)1.5 %Normal0.9-7.0The [facility] Comment on above:Performed By: #### CBC #### [facility] [address] [place] [address] Dr. Mikayla Gaonarythrocyte distribution width (RBC) [Ratio]13.2 %Osynmq36.0-15.0 [facility] HospitalComment on above:Performed By: #### CBC #### [facility] [address] [place] [address] Dr. Mikayla GalanHematocrit (Bld) [Volume fraction]41.7 %Critically low42.0-54.0 [facility] HospitalComment on above:Performed By: #### CBC #### [facility] [address] [place] [address] Dr. Mikayla GalanHemoglobin (Bld) [Mass/Vol]13.9 g/dLCritically low14.0-18.0[facility] HospitalComment on above:Performed By: #### CBC #### [facility] [address] [place] [address] Dr. Mikayla Eden #0.02 10e3/ulNormal0.00-0.03The [facility] For RehabilitationComment on above:Performed By: #### CBC #### [facility] [address] [place] [address] Dr. Mikayla Eden %0.4 %Normal0.0-0.5The [facility] For RehabilitationComment on above: Performed By: #### CBC #### [facility] [address] [place] [address] Dr. Mikayla Domingo #1.1 103/ulCritically low1.2-3.8The [facility] Comment on above:Performed By: #### CBC #### [facility] [address] [place] [address] Dr. Mikayla Acunahocytes/100 WBC (Bld)24.7 %Pndyip90.5-60.0The [facility] For RehabilitationComment on above:Performed By: #### CBC #### [facility] [address] [place] [address] Dr. Mikayla LiuUAL DIFF REQNONormalThe [facility] For RehabilitationComment on above: Performed By: #### CBC #### [facility] [address] [place] [address] Dr. Mikayla You (RBC) [Entitic mass]30.5 lpPbonko41.9-34.0The [facility] For RehabilitationComment on above:Performed By: #### CBC #### [facility] [address] [place] [address] Dr. Mikayla Castillo (RBC) [Mass/Vol]33.3 g/rHBuvukc07.9-35.2The [facility] RehabilitationComment on above:Performed By: #### CBC #### [facility] [address] [place] [address] Dr. Mikayla Castillo (RBC) [Entitic vol]91.4 yDIywacy42.0-94.0The [facility] RehabilitationComment on above:Performed By: #### CBC #### [facility] [address] [place] [address] Dr. Mikayla Davidson #0.4 103/ulNormal0.3-0.8The [facility] For RehabilitationComment on above:Performed By: #### CBC #### [facility] [address] [place] [address] Dr. Mikayla Del Rioocytes/100 WBC (Bld)8.4 %Normal1.7-12.0The [facility] Comment on above:Performed By: #### CBC #### [facility] [address] [place] [address] Dr. Mikayla GarciaUT #2.9 103/ulNormal1.4-6.5The [facility] For RehabilitationComment on above:Performed By: #### CBC #### [facility] [address] [place] [address] Dr. Mikayla Garciautrophils/100 WBC (Bld)64.6 %Veizev48.0-75.0The [facility] For RehabilitationComment on above:Performed By: #### CBC #### [facility] [address] [place] [address] Dr. Mikayla GalanPlatelet mean volume (Bld) [Entitic vol]9.5 fLNormal9.5-13.5The [facility] RehabilitationComment on above:Performed By: #### CBC #### [facility] [address] [place] [address] Dr. Mikayla GalanPLT293 103/ykJfzgov824-221Lnc [facility] RehabilitationComment on above: Performed By: #### CBC #### [facility] [address] [place] [address] Dr. Mikayla GalanRBC4.56 106/ulCritically low4.70-6.10The [facility] For RehabilitationComment on above:Performed By: #### CBC #### [facility] [address] [place] [address] Dr. Mikayla GalanWBC4.5 103/ulNormal4.0-11.0The [facility] For RehabilitationComment on above: Performed By: #### CBC #### [facility] [address] [place] [address] Dr. Mikayla GalanCT NECK ST W CONon 26-68-5201MX NECK ST W CONEXAMINATION: CT NECK ST W CON HISTORY: Tongue [...] Electronically authenticated by: CHAU JUNG Date: 2022-07-27 13:04NoParkwood HospitalCovid-19 PCR (CVDTBH)on 42-10-9495TBLH-CoV-2 (COVID-19) RNA IRIS+probe Ql (Unsp spec)Not detectedNormalNOT DETECTEDThe [facility] Comment on above:Result Comment: This test is not yet approved or cleared by the [place] FDA. When there are no FDA-approved or cleared tests available, and other criteria are met, FDA can make tests available under an emergency access mechanism called an Emergency Use Authorization (EUA). The EUA for this test is supported by the [place] of Health and Human Service's (HHS's) declaration that circumstances exist to justify the emergency use of in vitro diagnostics for the detection and/or diagnosis of the virus that causes COVID- 19. This EUA will remain in effect (meaning [...] of clinical signs and symptoms consistent with SARS-CoV-2.Performed By: #### POCGLUC #### [facility] [address] [place] [address] Dr. Mikayla GalanPROF CHEM 8 (BAS METB)on 91-80-6549Cmfdz gap [Moles/Vol]10.2 mmol/LNormalThe [facility] RehabilitationComment on above:Performed By: #### BMP #### [facility] [address] [place] [address] Dr. Mikayla GalanCalcium [Mass/Vol]9.2 mg/dLNormal8.5-10.1The [facility] Comment on above:Performed By: #### BMP #### [facility] [address] [place] [address] Dr. Mikayla GalanChloride [Moles/Vol]103 mmol/QMaardt59-511Odr [facility] Comment on above:Performed By: #### BMP #### [facility] [address] [place] [address] Dr. Mikayla GalanCO2 [Moles/Vol]31.3 mmol/EAswafm18.0-32.0The [facility] Comment on above:Performed By: #### BMP #### [facility] [address] [place] [address] Dr. Mikayla GalanCreatinine [Mass/Vol]0.98 mg/dLNormal0.70-1.30The [facility] RehabilitationComment on above:Performed By: #### BMP #### [facility] [address] [place] [address] Dr. Mikayla GaonaGFR-AF CAMBODIAN>60Normal>=60The [facility] For RehabilitationComment on above:Performed By: #### BMP #### [facility] [address] [place] [address] Dr. Mikayla GaonaGFR-NON AF CAMBODIAN>60Normal>=60The [facility] For RehabilitationComment on above:Performed By: #### BMP #### [facility] [address] [address] [address] Mikayla GalanGlucose [Mass/Vol]133 mg/dLCritically fvoz89-754Rpk [facility] RehabilitationComment on above:Performed By: #### BMP #### [facility] [address] [address] [address] Mikayla GalanPotassium [Moles/Vol]4.5 mmol/LNormal3.5-5.1The [facility] Comment on above:Performed By: #### BMP #### [facility] [address] [place] [address] Dr. Mikayla GalanSodium [Moles/Vol]140 mmol/WIdaeja062-594Xzd [facility] Comment on above:Performed By: #### BMP #### [facility] [address] [place] [address] Dr. Mikayla GalanUrea nitrogen [Mass/Vol]21.0 mg/dLCritically high7.0-18.0[facility] HospitalComment on above:Performed By: #### BMP #### [facility] [address] [place] [address] Dr. Mikayla Rinaldi nitrogen/Creatinine [Mass ratio]21.4 mg/mgNoParkwood HospitalComment on above:Performed By: #### BMP #### [facility] [address] [place] [address] Dr. Mikayla GalanPROTIMEon 09-64-0917GDM Coag (PPP) [Relative time]1.04 {INR} NormalThe [facility] For RehabilitationComment on above:Performed By: #### PT, PTT #### [facility] [address] [place] [address] Dr. Mikayla Su GUIDELINESSEE BELOWThe Jewish HospitalComment on above:Result Comment: DESIRED INR: 2.0 - 3.0 CONDITIONS NOT LISTED BELOW 2.5 - 3.5 FOR PROSTHETIC HEART VALVE REPLACEMENT 2.5 - 3.5 RECURRENT THROMBOSIS Performed By: #### PT, PTT #### [facility] [address] [address] [address] Mikayla GalanPT Coag (PPP) [Time]11.0 sNormal9.0-11.6The [facility] Comment on above:Performed By: #### PT, PTT #### [facility] [address] [place] [address] Dr. Mikayla GalanPTTon 13-36-7636bWJI Coag (Bld) [Time]28.6 uDgslct16.3-36.2The [facility] For RehabilitationComment on above:Performed By: #### POCGLUC #### [facility] [address] [place] [address] Dr. Mikayla GalanPathology Noteon 05-33-4303Sauerwjyu Note [id number]#1.00CD:127NormMercy Health West HospitalOutside Colonoscopyon 11-35-4920Famxprf Colonoscopy [id number]#1.00CD:127NormMercy Health West HospitalPOINT OF CARE GLUCOSEon 25-74-8437Tdttqvo [Mass/Vol]94 mg/nGZlqyco32-784 The [facility] RehabilitationComment on above:Performed By: #### POCGLUC #### [facility] [address] [place] [address] Dr. Mikayla GalanLab Reportson 90-56-3320Fgm Reports [id number]#1.00CD:127NormMercy Health West HospitalCovid-19 PCR (CVDTBH)on 13-20-9347HVVY-CoV-2 (COVID-19) RNA IRIS+probe Ql (Unsp spec)Not detectedNormalNOT DETECTEDThe [facility] For RehabilitationComment on above: Result Comment: This test is not yet approved or cleared by the [place] FDA. When there are no FDA-approved or cleared tests available, and other criteria are met, FDA can make tests available under an emergency access mechanism called an Emergency Use Authorization (EUA). The EUA for this test is supported by the [place] of Health and Human Service's (HHS's) declaration [...] of clinical signs and symptoms consistent with SARS-CoV-2.Performed By: #### POCGLUC #### [facility] [address] [place] [address] Dr. Mikayla Lawrence for Procedure/Surgeryon 67-96-0089Yzydbxh for Procedure/[id number]#1.00CD:127[facility] HospitalUS THYROIDon 53-64-3796GO THYROIDEXAMINATION: US THYROID HISTORY: Goiter COMPARISON: No relevant [...] Electronically authenticated by: QUANG JOHNSON Date: 2022-06-11 07:17The Jewish HospitalProvider Letteron 90-93-1795Dtanlbke Letter May 15, 2022 [address] [place] [id number] [address] ROOT 1945 Dear Manish , We have been trying to reach you with no success. It is important that you return our call regarding your referral from Dr. Nelson upon receiving this letter. Also, at the time of your call, please provide us with your current information. Thank you for your prompt attention to this matter. Sincerely, General Surgery [phone] Fayette Medical CenterCBC AUTO DIFFon [id number] #0.0 103/ulNormal0.0-0.1The [facility] For RehabilitationComment on above:Performed By: #### CBC #### [facility] [address] [address] [address] Mikayla GalanBasophils/100 WBC (Bld)0.6 %Normal0.2-2.0[facility] Comment on above:Performed By: #### CBC #### [facility] [address] [place] [address] Dr. Mikayla Amor #0.1 103/ulNormal0.0-0.7The [facility] Hospital For RehabilitationComment on above: Performed By: #### CBC #### [facility] [address] [place] [address] Dr. Mikayla Gaonaosinophils/100 WBC (Bld)1.4 %Normal0.9-7.0[facility] Comment on above:Performed By: #### CBC #### [facility] [address] [place] [address] Dr. Mikayla Gaonarythrocyte distribution width (RBC) [Ratio]12.6 %Ndhdbk18.0-15.0 [facility] HospitalComment on above:Performed By: #### CBC #### [facility] [address] [place] [address] Dr. Mikayla GalanHematocrit (Bld) [Volume fraction]41.8 %Critically low42.0-54.0 [facility] HospitalComment on above:Performed By: #### CBC #### [facility] [address] [place] [address] Dr. Mikayla GalanHemoglobin (Bld) [Mass/Vol]13.9 g/dLCritically low14.0-18.0[facility] HospitalComment on above:Performed By: #### CBC #### [facility] [address] [place] [address] Dr. Mikayla Eden #0.03 10e3/ulNormal0.00-0.03The [facility] For RehabilitationComment on above:Performed By: #### CBC #### [facility] [address] [place] [address] Dr. Mikayla Eden %0.6 %Critically high0.0-0.5The [facility] For RehabilitationComment on above:Performed By: #### CBC #### [facility] [address] [place] [address] Dr. Mikayla Domingo #1.0 103/ulCritically low1.2-3.8The [facility] Comment on above:Performed By: #### CBC #### [facility] [address] [place] [address] Dr. Mikayla Acunahocytes/100 WBC (Bld)19.9 %Critically low20.5-60.0The [facility] For RehabilitationComment on above:Performed By: #### CBC #### [facility] Laboratory [address] [place] [address] Dr. Mikayla Teixeira DIFF REQNONormalThe [facility] For RehabilitationComment on above: Performed By: #### CBC #### [facility] Laboratory [address] [place] [address] Dr. Mikayla You (RBC) [Entitic mass]31.0 joRaryhw59.9-34.0The [facility] For RehabilitationComment on above:Performed By: #### CBC #### [facility] Laboratory [address] [place] [address] Dr. Mikayla Castillo (RBC) [Mass/Vol]33.3 g/xGCpzile91.9-35.2The [facility] For RehabilitationComment on above:Performed By: #### CBC #### [facility] Laboratory [address] [place] [address] Dr. Mikayla Sneed (RBC) [Entitic vol]93.3 jNVmiqpv35.0-94.0The [facility] For RehabilitationComment on above:Performed By: #### CBC #### [facility] Laboratory [address] [place] [address] Dr. Mikayla Davidson #0.5 103/ulNormal0.3-0.8The [facility] For RehabilitationComment on above:Performed By: #### CBC #### [facility] Laboratory [address] [place] [address] Dr. Mikayla Del Rioocytes/100 WBC (Bld)8.9 %Normal1.7-12.0The [facility] Comment on above:Performed By: #### CBC #### [facility] Laboratory [address] [place] [address] Dr. Mikayla Marr #3.5 103/ulNormal1.4-6.5The [facility] For RehabilitationComment on above:Performed By: #### CBC #### [facility] Laboratory [address] [place] [address] Dr. Mikayla Garciautrophils/100 WBC (Bld)68.6 %Uyetpq86.0-75.0The [facility] For RehabilitationComment on above:Performed By: #### CBC #### [facility] Laboratory [address] [place] [address] Dr. Mikayla Petersenlet mean volume (Bld) [Entitic vol]9.6 fLNormal9.5-13.5The [facility] For RehabilitationComment on above:Performed By: #### CBC #### [facility] Laboratory [address] [place] [address] Dr. Mikayla GalanPLT280 103/suSytgjd690-789Rpb [facility] For RehabilitationComment on above: Performed By: #### CBC #### [facility] Laboratory [address] [place] [address] Dr. Mikayla GalanRBC4.48 106/ulCritically low4.70-6.10The [facility] For RehabilitationComment on above:Performed By: #### CBC #### [facility] Laboratory [address] [place] [address] Dr. Mikayla GalanWBC5.1 103/ulNormal4.0-11.0The [facility] For RehabilitationComment on above: Performed By: #### CBC #### [facility] Laboratory [address] [place] [address] Dr. Mikayla GalanGLYCOHEMOGLOBIN A1Con [id number] RECOMMENDATIONSEE BELOWNormal The [facility] For RehabilitationComment on above:Result Comment: ADA RECOMMENDED LIMIT 4.0 - 6.0 ADA THERAPEUTIC TARGET < 7.0 ACTION SUGGESTED > 7.0Performed By: #### A1C #### [facility] Laboratory [address] [place] [address] Dr. Mikayla GalanGlucose [Mass/Vol]183 mg/dLNormalThe [facility] For RehabilitationComment on above:Performed By: #### A1C #### [facility] Laboratory [address] [place] [address] Dr. Mikayla GalanHbA1c (Bld) [Mass fraction]8.0 %Critically high4.5-6.2The [facility] For RehabilitationComment on above:Performed By: #### A1C #### [facility] Laboratory [address] [place] [address] Dr. Mikayla GalanPROF 14(COMP METB)on [id number] [Mass/Vol]3.8 g/dLNormal 3.4-5.0The [facility] For RehabilitationComment on above:Performed By: #### CMP #### [facility] Laboratory [address] [place] [address] Dr. Mikayla GalanAlbumin/Globulin [Mass ratio]1.2 {ratio}NormalThe [facility] Hospital For RehabilitationComment on above:Performed By: #### CMP #### [facility] Laboratory [address] [place] [address] Dr. Mikayla Thompson [Catalytic activity/Vol]111 U/MKvezjl43-910Rnx [facility] For RehabilitationCommclaren bay special care hospital on above:Performed By: #### CMP #### [facility] Laboratory [address] [place] [address] Dr. Mikayla Esparza [Catalytic activity/Vol]50 U/TMaljul48-46Heb [facility] For RehabilitationCommclaren bay special care hospital on above:Performed By: #### CMP #### [facility] Laboratory [address] [place] [address] Dr. Mikayla Vergara gap [Moles/Vol]11.5 mmol/LNormalThe [facility] Comment on above:Performed By: #### CMP #### [facility] Laboratory [address] [address] [address] Mikayla GalanAST [Catalytic activity/Vol]27 U/EAlyyfk10-69Ejq [facility] For RehabilitationComment on above:Performed By: #### CMP #### [facility] Laboratory [address] [address] [address] Mikayla GalanBilirubin [Mass/Vol]0.5 mg/dLNormal0.2-1.0The [facility] Comment on above:Performed By: #### CMP #### [facility] Laboratory [address] [address] [address] Mikayla GalanCalcium [Mass/Vol]9.0 mg/dLNormal8.5-10.1The [facility] Comment on above:Performed By: #### CMP #### [facility] Laboratory [address] [address] [address] Mikayla GalanChloride [Moles/Vol]101 mmol/RDtggug06-806Qzn [facility] Comment on above:Performed By: #### CMP #### [facility] Laboratory [address] [address] [address] Mikayla GalanCO2 [Moles/Vol]27.7 mmol/CPretfi45.0-32.0The [facility] Comment on above:Performed By: #### CMP #### [facility] Laboratory [address] [address] [address] Mikayla GalanCreatinine [Mass/Vol]1.17 mg/dLNormal0.70-1.30The [facility] For RehabilitationComment on above:Performed By: #### CMP #### [facility] Laboratory [address] [address] [address] Degroot ChangEGFR-AF CAMBODIAN>60Normal>=60The [facility] For RehabilitationComment on above:Performed By: #### CMP #### [facility] Laboratory [address] [address] [address] Mikayla GaonaGFR-NON AF CAMBODIAN=60Normal>=60The [facility] For RehabilitationComment on above:Performed By: #### CMP #### [facility] Laboratory [address] [address] [address] Mikayla GalanGlobulin (S) [Mass/Vol]3.3 g/dLNormSt. Elizabeth HospitalComment on above:Performed By: #### CMP #### [facility] Laboratory [address] [address] [address] Mikayla GalanGlucose [Mass/Vol]233 mg/dLCritically nkce93-891Hcf [facility] RehabilitationComment on above:Performed By: #### CMP #### [facility] Laboratory [address] [address] [address] Mikayla GalanPotassium [Moles/Vol]4.2 mmol/LNormal3.5-5.1The [facility] Comment on above:Performed By: #### CMP #### [facility] Laboratory [address] [place] [address] Dr. Mikayla GalanProtein [Mass/Vol]7.1 g/dLNormal6.4-8.2The [facility] Comment on above:Performed By: #### CMP #### [facility] Laboratory [address] [place] [address] Dr. Mikayla GalanSodium [Moles/Vol]136 mmol/BDddvzj918-441KnhOhiohealth Dublin [facility] Hospital Comment on above:Performed By: #### CMP #### [facility] Laboratory [address] [place] [address] Dr. Mikayla GalanUrea nitrogen [Mass/Vol]15.0 mg/dLNormal7.0-18.0The [facility] For RehabilitationComment on above:Performed By: #### CMP #### [facility] Laboratory [address] [place] [address] Dr. Mikayla Rinaldi nitrogen/Creatinine [Mass ratio]12.8 mg/mgNoParkwood HospitalComment on above:Performed By: #### CMP #### [facility] Laboratory [address] [place] [address] Dr. Mikayla GalanPhysician Referralon [id number] Referral [id number]#1.00CD:[address] [place] [address] Vital Signs Date TimeVital SignValuePerforming DqqrytjcbFxgaataq03-35-1743 08:00-0400Body .2 cmSerene Morales MD Work Phone: [facility] HospitalVfmubzwfuf78-75-9673 08:00-0400Body mass index (BMI) [Ratio]31.32 kg/x1FbbqtiSerene Morales MD Work Phone: [phone])[facility]5310[facility] HospitalGmulrngfuk24-02-7390 08:00-0400Body dvivid33.72 kgSerene Morales MD Work Phone: [phone])[facility] [place], [place] [address]Nwauasteje02-11-9935 08:00-0400Diastolic blood eiyjmadw06 mm[Hg]Serene Morales MD Work Phone: 1(701)[facility]8013[facility] HospitalDkrzrrpuhe83-57-4972 08:00-0400Heart rate74 /min Serene Morales MD Work Phone: [phone])[facility]-6868[facility] HospitalDiqqcdnnyn92-84-9003 08:00-0400Systolic blood bsgyhebg092 mm[Hg]Serene Morales MD Work Phone: [phone])[facility]-6187[facility] HospitalZyxhlfkudq53-42-5694 10:56-0400Body ipdcjt631.2 cmMason Johnson MD Work Phone: [phone])[facility] [place], [place] [address]Sayethkpwh02-91-1562 10:56-0400Body mass index (BMI) [Ratio]31.32 kg/n5ZuvmkjMason Johnson MD Work Phone: [phone])[facility] [place], [place] [address]Igxnrolmoa64-73-7018 10:56-0400Body cfltig85.72 kgMason Johnson MD Work Phone: [phone])[facility] [place], [place] [address]Wvylxiiaft26-00-5473 10:56-0400Diastolic blood gkeirdcp11 mm[Hg]Mason Johnson MD Work Phone: 1(337)[facility] [place], [place] [address]Ietogwmefl53-72-1869 10:56-0400Heart rate64 /min Mason Johnson MD Work Phone: [phone])[facility] [address]Xryvkodlsv47-25-4659 10:56-9705GmH3% (BldA) [Mass fraction]97 %Mason Johnson MD Work Phone: [phone] [place], [place] [address]Jnqixzxkrw24-99-7119 10:56-0400Systolic blood tilshoyn501 mm[Hg]Mason Johnson MD Work Phone: 1(676)[facility]-[address] [place], [place] [address]Nsimqrvzyh42-09-7467 08:10-0400Body .2 Donato Morales MD Work Phone: 1(275)[facility]-9833[facility] HospitalBjlfoxyklu35-73-6443 08:10-0400Body mass index (BMI) [Ratio]31.48 kg/l6RjojrrSerene Morales MD Work Phone: [phone])[address] [place], [place] 2366307-15-2025 08:10-0400Body ujpjpp55.17 kgSerene Morales MD Work Phone: 1(215)[address] [place], [place] 2366307-15-2025 08:10-0400Diastolic blood mm[Hg]Serene Morales MD Work Phone: 1(556)[facility] [place], [place] [address]Ftnjiscqba77-21-6811 08:10-0400Heart rate57 /min Serene Morales MD Work Phone: [phone])[facility] [place], [place] [address]Ypohnpwedp02-72-5935 08:10-0400Systolic blood apfrnykg724 mm[Hg]Serene Morales MD Work Phone: 1(285)[facility] [place], [place] [address]Nflniycoqx92-92-1756 09:01-0400Body wpywzu086.2 Radha Johnson MD Work Phone: 1(771)[facility]-[address] [place], [place] [address]Prplbokzrr81-29-8991 09:01-0400Body mass index (BMI) [Ratio]31.17 kg/j6DmymjnMason Johnson MD Work Phone: [phone])[facility] [place], [place] [address]Szwtykvcrl51-38-9148 09:01-0400Body ymdihx08.27 kgMason Johnson MD Work Phone: [phone])[facility] [place], [place] [address]Mxycwcqwim46-78-3674 09:01-0400Diastolic blood mm[Hg]Mason Johnson MD Work Phone: 1(437)[facility]-[address] [place], [place] [address]Toindrjwwt52-16-5930 09:01-0400Heart rate60 /min Mason Johnson MD Work Phone: [phone])[facility]-[address] [place], [place] [address]Vmgtravoan69-87-2016 09:01-0999IqT0% (BldA) [Mass fraction]96 %Mason Johnson MD Work Phone: NOChristian HospitalAykxbwaozr65-06-0173 09:01-0400Systolic blood tvirkftk913 mm[Hg]Mason Johnson MD Work Phone: NO[facility] HospitalFeerjwdfmh47-64-6761 09:31-0400Body .2 cmMason Johnson MD Work Phone: NO[facility] HospitalVkxxotkwtn34-14-0684 09:31-0400Body mass index (BMI) [Ratio]31.48 kg/x4NbdgywMason Johnson MD Work Phone: NO[facility] HospitalTuqucloemm22-92-6430 09:31-0400Body ldropb52.17 kgMason Johnson MD Work Phone: NO[facility] HospitalUglfrnckbx08-63-4569 09:31-0400Diastolic blood lvzurmvc83 mm[Hg]Mason Johnson MD Work Phone: NO[facility] HospitalXrbxfwesoa04-67-1672 09:31-0400Heart rate58 /min Mason Johnson MD Work Phone: NO[facility] HospitalYqzqmvyqkj02-61-5835 09:31-5896LxM8% (BldA) [Mass fraction]95 %Mason Johnson MD Work Phone: NO[facility] HospitalMeretzedzc64-44-8409 09:31-0400Systolic blood fclwaior048 mm[Hg]Mason Johnson MD Work Phone: NO[facility] HospitalYxiwjjaham80-29-1261 10:33-0400Body .2 cmMason Johnson MD Work Phone: NO[facility] HospitalIdlfafzbtm19-45-6716 10:33-0400Body mass index (BMI) [Ratio]31.32 kg/m1PielclMason Johnson MD Work Phone: NO[facility] HospitalShbnljcphr53-84-9666 10:33-0400Body tqkiuo45.72 kgMason Johnson MD Work Phone: NO[facility] HospitalMztqvifvux06-00-8523 10:33-0400Diastolic blood lkatmhwt03 mm[Hg]Mason Johnson MD Work Phone: [facility] HospitalEzytulunhf77-69-0599 10:33-0400Heart rate56 /min Mason Johnson MD Work Phone: noChristian HospitalXkiupvvpea63-50-2265 10:33-8596FjG7% (BldA) [Mass fraction]95 %Mason Johnson MD Work Phone: noChristian HospitalRirjisdtxv62-35-9712 10:33-0400Systolic blood mfaiwevb763 mm[Hg]Mason Johnson MD Work Phone: [facility] HospitalTtevckorpg40-50-0418 10:50-0400Body zlovpv251.9 cmVwagner England MD Work Phone: [facility]04-30-2025 10:50-0400Body mass index (BMI) [Ratio]32.92 kg/p9GnoecJohn England MD Work Phone: [facility]04-30-2025 10:50-0400Body temperature 97.9 [degF]John England MD Work Phone: [facility]04-30-2025 10:50-0400Body ysmpwt42.7 kgJohn England MD Work Phone: [facility]04-30-2025 10:50-0400Diastolic blood zgunrzxp02 mm[Hg]John England MD Work Phone: [facility]04-30-2025 10:50-0400Heart rate55 /min John England MD Work Phone: [facility]04-30-2025 10:50-0400Respiratory rate 16 /minJohn England MD Work Phone: [facility]04-30-2025 10:50-7791EuN1% (BldA) [Mass fraction]97 %John England MD Work Phone: [facility]04-30-2025 10:50-0400Systolic blood glfhxnsi898 mm[Hg]John England MD Work Phone: [facility]04-21-2025 10:52-0400Body khiruy194.2 cmMason Johnson MD Work Phone: [facility] HospitalGniradsjxk57-81-8361 10:52-0400Body mass index (BMI) [Ratio]30.85 kg/a4JtosraMason Johnson MD Work Phone: [facility] HospitalUmztifssnl17-12-9163 10:52-0400Body ysvbmi35.36 kgMason Johnson MD Work Phone: [facility] HospitalCmjywuckyp77-01-9227 10:52-0400Diastolic blood ilrbnqkk31 mm[Hg]Mason Johnson MD Work Phone: [facility] HospitalNdbzieyqwk97-21-6125 10:52-0400Heart rate52 /min Mason Johnson MD Work Phone: 1(750)[facility]-[address] [place], [place] [address]Okpuqivrxk11-83-8215 10:52-3577EoV0% (BldA) [Mass fraction]96 %Mason Johnson MD Work Phone: [facility] HospitalLrfasrdivr63-84-5236 10:52-0400Systolic blood dmizzzst750 mm[Hg]Mason Johnson MD Work Phone: [facility] HospitalOejdrywdqq30-15-6697 08:01-0400Body odlqdk065.2 cmSerene Morales MD Work Phone: [facility] HospitalRohlrhhmpn04-16-3967 08:01-0400Body mass index (BMI) [Ratio]30.85 kg/k7BymoloSerene Morales MD Work Phone: [address] [address]Vzuqrrmoad05-34-5804 08:01-0400Body gmwgnu86.36 kgSerene Morales MD Work Phone: [address] [address]Fxopdrqmmf98-55-0561 08:01-0400Diastolic blood zusypnps53 mm[Hg]Serene Moraels MD Work Phone: [address] [address]Shxnwkwlqw60-67-1662 08:01-0400Heart rate54 /min Serene Morales MD Work Phone: [address] [address]Fvlumvoawd12-59-3009 08:01-0400Systolic blood zwzgiova758 mm[Hg]Serene Morales MD Work Phone: NO[facility] HospitalCairlcgtro17-63-7607 15:41-0400Body sxgneu531.2 cmMason Johnson MD Work Phone: NO[facility] HospitalGezyqruotb86-21-5937 15:41-0400Body mass index (BMI) [Ratio]30.85 kg/t5WrpsbkMason Johnson MD Work Phone: NO[facility] HospitalOfpwpgvtbb79-57-8505 15:41-0400Body .36 kgMason Johnson MD Work Phone: NO[facility] HospitalImxqctqgtz89-56-2249 15:41-0400Diastolic blood mm[Hg]Mason Johnson MD Work Phone: NO[facility] HospitalYgxppymykk22-85-0226 15:41-0400Heart rate56 /min Mason Johnson MD Work Phone: NO[facility] HospitalVzvhifxoyu47-40-3382 15:41-3432HtJ6% (BldA) [Mass fraction]98 %Mason Johnson MD Work Phone: NO[facility] HospitalZaqlxmqvdk44-17-1533 15:41-0400Systolic blood swxagnxi591 mm[Hg]Mason Johnson MD Work Phone: NO[facility] HospitalBsaavoyvzl74-17-2951 09:26-0500Body .2 cmMaosn Johnson MD Work Phone: NO[facility] HospitalVrhltwsyby74-01-3326 09:26-0500Body mass index (BMI) [Ratio]30.54 kg/l0YgdpdeMason Johnson MD Work Phone: NO[facility] HospitalKdnibpaehp41-44-2097 09:26-0500Body krpywo19.45 kgMason Johnson MD Work Phone: NO[facility] HospitalIpuaskybij06-78-5584 09:26-0500Diastolic blood actjhvrg08 mm[Hg]Mason Johnson MD Work Phone: NO[facility] HospitalJecvmschdo50-14-0520 09:26-0500Heart rate74 /min Mason Johnson MD Work Phone: [facility] HospitalLcqradzamg30-52-4420 09:26-9707XkF6% (BldA) [Mass fraction]98 %Mason Johnson MD Work Phone: [facility] HospitalXfwdfpcxpt97-09-3061 09:26-0500Systolic blood aljeqviy242 mm[Hg]Mason Johnson MD Work Phone: 1(562)[facility]-[address] [place], [place] [address]Euudtgfgfl74-82-1873 14:14-0500Body .2 cmSerene Morales MD Work Phone: 1(353)[facility]0928[facility] HospitalYbwukgttxt15-87-4778 14:14-0500Body mass index (BMI) [Ratio]29.91 kg/t5ZscyboSerene Morales MD Work Phone: 1(543)[address] [place], [place] 236[address]01-14-2025 14:14-0500Body gifpqq10.64 kgSerene Morales MD Work Phone: 1(556)[address] [place], [place] 2366301-14-2025 14:14-0500Diastolic blood etbaekty86 mm[Hg]Serene Morales MD Work Phone: 1(534)[address] [place], [place] 2366301-14-2025 14:14-0500Heart rate57 /min Serene Morales MD Work Phone: 1(980)[facility] [place], [place] [address]Mvvgjcvapv21-72-8240 14:14-0500Systolic blood tficrdjm214 mm[Hg]Serene Morales MD Work Phone: 1(199)[address] [place], [place] 236[address]12-10-2024 09:02-0500Body .2 Donato Morales MD Work Phone: 1(773)[address] [place], [place] 2366312-10-2024 09:02-0500Body mass index (BMI) [Ratio]29.91 kg/c2MvgdnnSerene Morales MD Work Phone: 1(528)[address] [place], [place] 236[address]12-10-2024 09:02-0500Body .64 kgSerene Morales MD Work Phone: 1(066)[address] [place], [place] [address]12-10-2024 09:02-0500Diastolic blood mm[Hg]Serene Morales MD Work Phone: [facility] HospitalAzwuyioplr61-13-0079 09:02-0500Systolic blood akdxgiwa462 mm[Hg]Serene Morales MD Work Phone: [facility] HospitalTekgnqnawm23-62-6221 08:57-0500Body dmztym614.2 cmSerene Morales MD Work Phone: 1(925)[facility]8930[facility] HospitalTxrzmelvgp42-98-0651 08:57-0500Body mass index (BMI) [Ratio]29.91 kg/x6TummnaSerene Morales MD Work Phone: 1(699)[address] [place] [address]-12-2024 08:57-0500Body nfryqy44.64 kgSerene Morales MD Work Phone: [facility] HospitalTamkhztnzn59-01-9654 08:57-0500Diastolic blood oloitgjr10 mm[Hg]Serene Morales MD Work Phone: [facility] HospitalZlrdbysgxb70-48-1288 08:57-0500Systolic blood fuflgqle590 mm[Hg]Serene Morales MD Work Phone: [facility] HospitalRdwuhrdnxu07-07-2915 15:06-0400Body puognj301.9 Hunter England MD Work Phone: [facility]10-30-2024 15:06-0400Body mass index (BMI) [Ratio]31.12 kg/v0QpadlJohn England MD Work Phone: [facility]10-30-2024 15:06-0400Body temperature 97.81 [degF]John England MD Work Phone: [facility]10-30-2024 15:06-0400Body rylqmb82.7 kgJohn England MD Work Phone: [facility]10-30-2024 15:06-0400Diastolic blood mm[Hg]John England MD Work Phone: [facility]10-30-2024 15:06-0400Heart rate60 /min John England MD Work Phone: [facility]10-30-2024 15:06-0400Respiratory rate 18 /minJohn England MD Work Phone: [facility]10-30-2024 15:06-0791JnX4% (BldA) [Mass fraction]98 %John England MD Work Phone: [facility]10-30-2024 15:06-0400Systolic blood xtvipnws871 mm[Hg]John England MD Work Phone: [facility]10-30-2024 14:36-0400Body mass index (BMI) [Ratio]31.12 kg/m2BARRON Feliz MD Work Phone: [facility]10-30-2024 14:36-0400Body temperature 97.81 [degF]BARRON Feliz MD Work Phone: [facility]10-30-2024 14:36-0400Body xdylyy69.7 kgBARRON Feliz MD Work Phone: [facility]10-30-2024 14:36-0400Diastolic blood fiyxcnhs22 mm[Hg]BARRON Feliz MD Work Phone: [facility]10-30-2024 14:36-0400Heart rate60 /min BARRON Feliz MD Work Phone: [facility]10-30-2024 14:36-0400Respiratory rate 18 /FaustoBARRON Feliz MD Work Phone: [facility]10-30-2024 14:36-4702FyE5% (BldA) [Mass fraction]98 %BARRON Feliz MD Work Phone: [facility]10-30-2024 14:36-0400Systolic blood mm[Hg]BARRON Feliz MD Work Phone: [facility]10-24-2024 08:51-0400Body .2 cmDaniel Johnson MD Work Phone: [facility] HospitalDtsrxdvmgu56-31-4533 08:51-0400Body mass index (BMI) [Ratio]30.23 kg/i0GkyrxuMason Johnson MD Work Phone: [facility] HospitalLkcnddzfbp45-80-5336 08:51-0400Body yvsywt27.54 kgMason Johnson MD Work Phone: 1(901)[facility]-4529[facility] HospitalSxdqlaqhee12-84-6680 08:51-0400Diastolic blood aavkrkph91 mm[Hg]Mason Johnson MD Work Phone: 1(234)[facility]-[address] [place], [place] [address]Pxmrrrqkxk12-93-1061 08:51-0400Heart rate63 /min Mason Johnson MD Work Phone: 1(714)[facility] [place], [place] [address]Ydpeslxbyu87-12-7043 08:51-7579RvG3% (BldA) [Mass fraction]100 %Mason Johnson MD Work Phone: 1(192)[facility]-0465[facility] HospitalJlzrgltezd12-69-8802 08:51-0400Systolic blood fmhkgtia431 mm[Hg]Mason Johnson MD Work Phone: [facility] HospitalGjhxvpbxxg00-77-3329 09:17-0400Body envmci943.2 cmSerene Morales MD Work Phone: [facility] HospitalMgstqzqoir75-28-1989 09:17-0400Body mass index (BMI) [Ratio]30.38 kg/h4HdngmhSerene Morales MD Work Phone: [facility] HospitalJweirtxdkx24-69-1040 09:17-0400Body fjhopb02 kg Serene Morales MD Work Phone: [facility] HospitalXplrqiaddr17-22-6437 09:17-0400Diastolic blood jailkavk50 mm[Hg]Serene Morales MD Work Phone: 1(953)[facility]-6751[facility] HospitalBjadruythx86-03-6261 09:17-0400Systolic blood asqubwke167 mm[Hg]Serene Morales MD Work Phone: 1(403)[facility]8448[facility] HospitalXkfzbhvtek52-08-8193 12:09-0400Body jhubyb884.18 [facility] 12:09-0400Body mass index (BMI) [Ratio]30.1 kg/c4VyzjktvqdK[facility]10-01-2024 12:09-0400Body ficoueqetkp47.3 [degF][facility]10-01-2024 12:09-0400Body wbfrob68.2 kg[facility]10-01-2024 12:09-0400Diastolic blood talpones21 mm[Hg][facility]10-01-2024 12:09-0400 Heart rate63 /[facility]10-01-2024 12:09-0400 Respiratory rate18 /[facility]10-01-2024 12:09-0400 SaO2% (BldA) [Mass fraction]97 %[facility]10-01-2024 12:09-0400Systolic blood pqakbnej648 mm[Hg][facility] 03-24-2024 08:59-0400Body qosqgp033.2 Donato Morales MD Work Phone: [phone])[address]09-17-2024 08:59-0400Body mass index (BMI) [Ratio]29.6 kg/f7WuijuuSerene Morales MD Work Phone: [phone] HospitalW[facility] HospitalTqdbabsxls26-79-2555 08:59-0400Body spoxii77.73 kgSerene Morales MD Work Phone: [phone])633[facility] HospitalZqiiebkoid59-81-6698 08:59-0400Diastolic blood rigtbrws59 mm[Hg]Serene Morales MD Work Phone: 1([phone] HospitalSoxmwhjdgi19-16-5458 08:59-0400Systolic blood hakvgwsg208 mm[Hg]Serene Morales MD Work Phone: [phone] HospitalKpmzgsgjsz85-92-5603 09:06-0400Body .2 Donato Morales MD Work Phone: 1(607)786[facility] HospitalRcfpzgybvk81-02-3917 09:06-0400Body mass index (BMI) [Ratio]29.91 kg/r5PibrjoSerene Morales MD Work Phone: [facility] HospitalLrndqdxwhp06-84-0771 09:06-0400Body wgutsa61.64 kgSerene Morales MD Work Phone: [facility] HospitalWtzlnolmqw23-42-2124 09:06-0400Diastolic blood tqruanrv55 mm[Hg]Serene Morales MD Work Phone: [facility] HospitalAallsvyzby10-05-2287 09:06-0400Systolic blood mwiirsxn361 mm[Hg]eSrene Morales MD Work Phone: [facility] HospitalQztkgioogd17-70-6544 13:29-0400Body pkguog982.64 cm[facility]07-09-2024 13:29-0400Body mass index (BMI) [Ratio]30.5 kg/l2ByspjfospKettering Health [facility] Campus07-09-2024 13:29-0400Body .4 [degF][facility]07-09-2024 13:29-0400Body lxxefo43.89 kgK[facility]07-09-2024 13:29-0400Diastolic blood mm[Hg][facility]07-09-2024 13:29-0400 Heart rate66 /[facility]07-09-2024 13:29-0400 Respiratory rate18 /[facility]07-09-2024 13:29-0400 SaO2% (BldA) [Mass fraction]92 %[facility]07-09-2024 13:29-0400Systolic blood cxpsoyna264 mm[Hg][facility] 11-06-2023 09:51-0400Body mass index (BMI) [Ratio]31.73 kg/m2BARRON Feliz MD Work Phone: [facility]05-01-2024 09:51-0400Body temperature 97.11 [degF]BARRON Feliz MD Work Phone: [facility]05-01-2024 09:51-0400Body mybfzt55.4 kgBARRON Feliz MD Work Phone: [facility]05-01-2024 09:51-0400Diastolic blood grvmodoz39 mm[Hg]BARRON Feliz MD Work Phone: [facility]05-01-2024 09:51-0400Heart rate58 /min BARRON Feliz MD Work Phone: [facility]05-01-2024 09:51-0400Respiratory rate 16 /FaustoBARRON Feliz MD Work Phone: [facility]05-01-2024 09:51-5468EjU5% (BldA) [Mass fraction]99 %BARRON Feliz MD Work Phone: [facility]05-01-2024 09:51-0400Systolic blood vyxnxrvz365 mm[Hg]BARRON Feliz MD Work Phone: [facility]04-17-2024 10:56-0400Body .9 cmVwagner England MD Work Phone: [facility]04-17-2024 10:56-0400Body temperature 97.81 [degF]John England MD Work Phone: [facility]04-17-2024 10:56-0400Body virwqa59.5 kgJohn England MD Work Phone: [facility]04-17-2024 10:56-0400Diastolic blood mm[Hg]John England MD Work Phone: [facility]04-17-2024 10:56-0400Heart rate54 /min John England MD Work Phone: [place] [address]-17-2024 10:56-0400Respiratory rate 16 /minJohn England MD Work Phone: [place] [address]-17-2024 10:56-8664TcX4% (BldA) [Mass fraction]98 %John England MD Work Phone: [facility]04-17-2024 10:56-0400Systolic blood frhgyske389 mm[Hg]John England MD Work Phone: [facility]2023 11:14-0400Body temperature 97.11 [degF]BARRON Feliz MD Work Phone: [facility]2023 11:14-0400Body auasrg26.2 kgBARRON Feliz MD Work Phone: [facility]2023 11:14-0400Diastolic blood fceoujmu073 mm[Hg]BARRON Feliz MD Work Phone: [facility]2023 11:14-0400Heart rate58 /min BARRON Feliz MD Work Phone: [facility]2023 11:14-0400Respiratory rate 16 /FaustoBARRON Feliz MD Work Phone: [facility]2023 11:14-2467LcH7% (BldA) [Mass fraction]98 %BARRON Feliz MD Work Phone: [facility]2023 11:14-0400Systolic blood thdmcuzv219 mm[Hg]BARRON Feliz MD Work Phone: [facility]09-13-2023 12:55-0400Body ovksmt991.9 cmVwagner England MD Work Phone: [facility]09-13-2023 12:55-0400Body temperature 97.9 [degF]John England MD Work Phone: [facility]09-13-2023 12:55-0400Body tudeoq05.92 kgJohn England MD Work Phone: [facility]09-13-2023 12:55-0400Diastolic blood jtjyagfk36 mm[Hg]John England MD Work Phone: [facility]09-13-2023 12:55-0400Heart rate59 /min John England MD Work Phone: [facility]09-13-2023 12:55-0400Respiratory rate 16 /minJohn England MD Work Phone: [facility]09-13-2023 12:55-7516KyY7% (BldA) [Mass fraction]98 %John England MD Work Phone: [facility]09-13-2023 12:55-0400Systolic blood jnzyeddn185 mm[Hg]John England MD Work Phone: [facility]08-02-2023 11:59-0400Body temperature 97.3 [degF]BARRON Feliz MD Work Phone: [facility]08-02-2023 11:59-0400Body eyggha12.74 kgBARRON Feliz MD Work Phone: [facility]08-02-2023 11:59-0400Diastolic blood liosvugr89 mm[Hg]BARRON Feliz MD Work Phone: [facility]08-02-2023 11:59-0400Heart rate56 /min BARRON Feliz MD Work Phone: [facility]08-02-2023 11:59-0400Respiratory rate 16 /FaustoBARRON Feliz MD Work Phone: [facility]08-02-2023 11:59-0400Systolic blood krhnpmyu001 mm[Hg]BARRON Feliz MD Work Phone: [facility]08-02-2023 11:29-0400Body .9 cmVwagner England MD Work Phone: [facility]08-02-2023 11:29-0400Body temperature 97.3 [degF]John England MD Work Phone: [facility]08-02-2023 11:29-0400Body zbsytr56.92 kgJohn England MD Work Phone: [facility]08-02-2023 11:29-0400Diastolic blood hporqlrl30 mm[Hg]John England MD Work Phone: [facility]08-02-2023 11:29-0400Heart rate56 /min John England MD Work Phone: [facility]08-02-2023 11:29-0400Respiratory rate 16 /minJohn England MD Work Phone: [facility]08-02-2023 11:29-9097LkY2% (BldA) [Mass fraction]98 %John England MD Work Phone: [facility]08-02-2023 11:29-0400Systolic blood lwugdtbv249 mm[Hg]John England MD Work Phone: [facility]05-24-2023 14:37-0400Body temperature 96.69 [degF]BARRON Feliz MD Work Phone: [facility]05-24-2023 14:37-0400Body .47 kgBARRON Feliz MD Work Phone: [facility]05-24-2023 14:37-0400Diastolic blood wbixbocs95 mm[Hg]BARRON Feliz MD Work Phone: [facility]05-24-2023 14:37-0400Heart rate66 /min BARRON Feliz MD Work Phone: [facility]05-24-2023 14:37-0400Respiratory rate 18 /FaustoBARRON Feliz MD Work Phone: [facility]05-24-2023 14:37-3866VgN7% (BldA) [Mass fraction]97 %BARRON Feliz MD Work Phone: [facility]05-24-2023 14:37-0400Systolic blood vpngdexq666 mm[Hg]BARRON Feliz MD Work Phone: [facility]05-03-2023 09:21-0400Body .9 cmVwagner England MD Work Phone: [facility]05-03-2023 09:21-0400Body temperature 97.5 [degF]oJhn England MD Work Phone: [facility]05-03-2023 09:21-0400Body osgxby03.11 kgJohn England MD Work Phone: [facility]05-03-2023 09:21-0400Diastolic blood djqlhlol36 mm[Hg]John England MD Work Phone: [facility]05-03-2023 09:21-0400Heart rate58 /min John England MD Work Phone: [facility]05-03-2023 09:21-0400Respiratory rate 16 /minJohn England MD Work Phone: [facility]05-03-2023 09:21-0521SbW7% (BldA) [Mass fraction]100 %John England MD Work Phone: [facility]05-03-2023 09:21-0400Systolic blood vfmklcaz436 mm[Hg]John England MD Work Phone: [facility]04-26-2023 14:05-0400Body uixcvl144.9 cmNatalie Cadena APRN.ARTIST AND REPERTOIRE MANAGER Work Phone: [facility]04-26-2023 14:05-0400Body temperature 97.5 [degF]Natalie Cadena APRN.ARTIST AND REPERTOIRE MANAGER Work Phone: [facility]04-26-2023 14:05-0400Body kehyzv89.2 kgNatalie Cadena APRN.ARTIST AND REPERTOIRE MANAGER Work Phone: [facility]04-26-2023 14:05-0400Diastolic blood gwdxacgh60 mm[Hg]Natalie Cadena APRN.ARTIST AND REPERTOIRE MANAGER Work Phone: [place] [address]-26-2023 14:05-0400Heart rate67 /min Natalie Cadena APRN.ARTIST AND REPERTOIRE MANAGER Work Phone: [place] [address]-26-2023 14:05-0400Respiratory rate 16 /minNatalie Cadena APRN.ARTIST AND REPERTOIRE MANAGER Work Phone: [place] [address]-26-2023 14:05-9685TvQ4% (BldA) [Mass fraction]98 %Natalie Cadena APRN.ARTIST AND REPERTOIRE MANAGER Work Phone: [place] [address]-26-2023 14:05-0400Systolic blood zcdiujjy779 mm[Hg]Natalie Cadena APRN.ARTIST AND REPERTOIRE MANAGER Work Phone: [place] [address]-20-2023 09:51-0400Body axsqax842.9 cmNatalie Cadena APRN.ARTIST AND REPERTOIRE MANAGER Work Phone: [place] [address]-20-2023 09:51-0400Body temperature 97 [degF]Natalie Cadena APRN.ARTIST AND REPERTOIRE MANAGER Work Phone: [place] [address]-20-2023 09:51-0400Body gaejlv47.29 kgNatalie Cadena APRN.ARTIST AND REPERTOIRE MANAGER Work Phone: [place] [address]-20-2023 09:51-0400Diastolic blood jioyknfi36 mm[Hg]Natalie Cadena APRN.ARTIST AND REPERTOIRE MANAGER Work Phone: [place] [address]-20-2023 09:51-0400Heart rate63 /min Natalie Cadena APRN.ARTIST AND REPERTOIRE MANAGER Work Phone: [place] [address]-20-2023 09:51-0400Respiratory rate 16 /minNatalie Cadena APRN.ARTIST AND REPERTOIRE MANAGER Work Phone: [place] [address]-20-2023 09:51-6135DiJ5% (BldA) [Mass fraction]99 %Natalie Cadena APRN.ARTIST AND REPERTOIRE MANAGER Work Phone: [place] [address]-20-2023 09:51-0400Systolic blood laupawkf414 mm[Hg]Natalie Cadena APRN.ARTIST AND REPERTOIRE MANAGER Work Phone: [facility]04-14-2023 09:21-0400Body sseqjy511.9 cmVwagner England MD Work Phone: [place] [address]-14-2023 09:21-0400Body temperature 97.11 [degF]John England MD Work Phone: [place] [address]-14-2023 09:21-0400Body .74 kgJohn England MD Work Phone: [place] [address]-14-2023 09:21-0400Diastolic blood dynpgvly50 mm[Hg]John England MD Work Phone: [facility]04-14-2023 09:21-0400Heart rate56 /min John England MD Work Phone: [facility]04-14-2023 09:21-0400Respiratory rate 16 /minJohn England MD Work Phone: [place] [address]-14-2023 09:21-6804TgR6% (BldA) [Mass fraction]98 %John England MD Work Phone: [place] [address]-14-2023 09:21-0400Systolic blood mm[Hg]John England MD Work Phone: [facility]04-10-2023 10:40-0400Body temperature 97.39 [degF]BARRON Feliz MD Work Phone: [place] [address]-10-2023 10:40-0400Body iljuqv02.02 kgBARRON Feliz MD Work Phone: [place] [address]-10-2023 10:40-0400Diastolic blood mm[Hg]BARRON Feliz MD Work Phone: [place] [address]-10-2023 10:40-0400Heart rate83 /min BARRON Feliz MD Work Phone: [facility]04-10-2023 10:40-0400Respiratory rate 16 /FaustoBARRON Feliz MD Work Phone: [place] [address]-10-2023 10:40-8765OlM3% (BldA) [Mass fraction]100 %BARRON Feliz MD Work Phone: [facility]04-10-2023 10:40-0400Systolic blood rcknitko189 mm[Hg]BARRON Feliz MD Work Phone: [facility]04-03-2023 11:07-0400Body temperature 98.2 [degF]Chair Jose Work Phone: [facility]04-03-2023 11:07-0400Diastolic blood ginafmep03 mm[Hg]Chair Jose Work Phone: [facility]04-03-2023 11:07-0400Heart rate70 /min Chair [place] Work Phone: [place] [address]-03-2023 11:07-0400Respiratory rate 18 /minChair Jose Work Phone: [facility]04-03-2023 11:07-6652SgW4% (BldA) [Mass fraction]99 %Chair [place] Work Phone: [facility]04-03-2023 11:07-0400Systolic blood htzizkiq988 mm[Hg]Chair Jose Work Phone: [facility]04-03-2023 10:48-0400Body temperature 97.2 [degF]BARRON Feliz MD Work Phone: [facility]04-03-2023 10:48-0400Body lhyaua41.65 kgBARRON Feliz MD Work Phone: [facility]04-03-2023 10:48-0400Diastolic blood mnyvmspk46 mm[Hg]BARRON Feliz MD Work Phone: [facility]04-03-2023 10:48-0400Heart rate67 /min BARRON Feliz MD Work Phone: [facility]04-03-2023 10:48-0400Respiratory rate 16 /FaustoBARRON Feliz MD Work Phone: [facility]04-03-2023 10:48-4013NoH5% (BldA) [Mass fraction]99 %BARRON Feliz MD Work Phone: [facility]04-03-2023 10:48-0400Systolic blood nydadqed010 mm[Hg]BARRON Feliz MD Work Phone: [facility]03-27-2023 11:40-0400Body eztgic855.9 cmNatalie Cadena APRN.ARTIST AND REPERTOIRE MANAGER Work Phone: [facility]03-27-2023 11:40-0400Body temperature 96.91 [degF]Natalie Cadena APRN.ARTIST AND REPERTOIRE MANAGER Work Phone: [facility]03-27-2023 11:40-0400Body auxwyl38.29 kgNatalie Cadena APRN.ARTIST AND REPERTOIRE MANAGER Work Phone: [facility]03-27-2023 11:40-0400Diastolic blood epcqoqro94 mm[Hg]Natalie Cadena APRN.ARTIST AND REPERTOIRE MANAGER Work Phone: [facility]03-27-2023 11:40-0400Heart rate74 /min Natalie Cadena APRN.ARTIST AND REPERTOIRE MANAGER Work Phone: [facility]03-27-2023 11:40-0400Respiratory rate 16 /minNatalie Cadena APRN.ARTIST AND REPERTOIRE MANAGER Work Phone: [place] [address]-27-2023 11:40-3438XtG8% (BldA) [Mass fraction]99 %Natalie Cadena APRN.ARTIST AND REPERTOIRE MANAGER Work Phone: [facility]03-27-2023 11:40-0400Systolic blood mm[Hg]Natalie Surinder LIDDING MACHINE OPERATOR.ARTIST AND REPERTOIRE MANAGER Work Phone: [facility]03-27-2023 10:47-0400Body temperature 96.91 [degF]BARRON Feliz MD Work Phone: [place] [address]-27-2023 10:47-0400Body dyijzz92.65 kgBARRON Feliz MD Work Phone: [facility]03-27-2023 10:47-0400Diastolic blood lfvkyrmd34 mm[Hg]BARRON Feliz MD Work Phone: [place] [address]-27-2023 10:47-0400Heart rate74 /min BARRON Feliz MD Work Phone: [place] [address]-27-2023 10:47-0400Respiratory rate 16 /FaustoBARRON Feliz MD Work Phone: [place] [address]-27-2023 10:47-4383FvM5% (BldA) [Mass fraction]99 %BARRON Feliz MD Work Phone: [place] [address]-27-2023 10:47-0400Systolic blood hguyxjsd761 mm[Hg]BARRON Feliz MD Work Phone: [facility]03-20-2023 10:40-0400Body temperature 97.59 [degF]BARRON Feliz MD Work Phone: [facility]03-20-2023 10:40-0400Body wmzeyg96.46 kgBARRON Feliz MD Work Phone: [place] [address]-20-2023 10:40-0400Diastolic blood mm[Hg]BARRON Feliz MD Work Phone: [place] [address]-20-2023 10:40-0400Heart rate83 /min BARRON Feliz MD Work Phone: [place] [address]-20-2023 10:40-0400Respiratory rate 18 /FaustoBARRON Feliz MD Work Phone: [place] [address]-20-2023 10:40-5838KaQ2% (BldA) [Mass fraction]98 %BARRON Feliz MD Work Phone: [place] [address]-20-2023 10:40-0400Systolic blood uqfjujrr569 mm[Hg]BARRON Feliz MD Work Phone: [place] [address]-13-2023 11:03-0400Body temperature 97.7 [degF]BARRON Feliz MD Work Phone: [place] [address]-13-2023 11:03-0400Body woxurp82.82 kgBARRON Feliz MD Work Phone: [place] [address]-13-2023 11:03-0400Diastolic blood yjupfoth85 mm[Hg]BARRON Feliz MD Work Phone: [place] [address]-13-2023 11:03-0400Heart rate75 /min BARRON Feliz MD Work Phone: [place] [address]-13-2023 11:03-0400Respiratory rate 18 /FaustoBARRON Feliz MD Work Phone: [place] [address]-13-2023 11:03-1287VjE6% (BldA) [Mass fraction]95 %BARRON Feliz MD Work Phone: [place] [address]-13-2023 11:03-0400Systolic blood ohdzqmlk956 mm[Hg]BARRON Feliz MD Work Phone: [facility]03-06-2023 11:17-0500Body temperature 97.81 [degF]BARRON Feliz MD Work Phone: [place] [address]-06-2023 11:17-0500Body himlgh36.73 kgBARRON Feliz MD Work Phone: [place] [address]-06-2023 11:17-0500Diastolic blood jmhpzifj33 mm[Hg]BARRON Feliz MD Work Phone: [place] [address]-06-2023 11:17-0500Heart rate72 /min BARRON Feliz MD Work Phone: [facility]03-06-2023 11:17-0500Respiratory rate 18 /FaustoBARRON Feliz MD Work Phone: [facility]03-06-2023 11:17-0720YnZ7% (BldA) [Mass fraction]97 %BARRON Feliz MD Work Phone: [facility]03-06-2023 11:17-0500Systolic blood hryonrcy877 mm[Hg]BARRON Feliz MD Work Phone: [facility]02-27-2023 11:09-0500Body xdzwud823.9 cmVwagner England MD Work Phone: [facility]02-27-2023 11:09-0500Body temperature 97 [degF]John England MD Work Phone: [facility]02-27-2023 11:09-0500Body dkumxp59.46 kgJohn England MD Work Phone: [facility]02-27-2023 11:09-0500Diastolic blood wtohohwt07 mm[Hg]John England MD Work Phone: [facility]02-27-2023 11:09-0500Heart rate70 /min John England MD Work Phone: [facility]02-27-2023 11:09-0500Respiratory rate 16 /minJohn England MD Work Phone: [place] [address]-27-2023 11:09-0589YjN4% (BldA) [Mass fraction]97 %John England MD Work Phone: [facility]02-27-2023 11:09-0500Systolic blood fyafulqu596 mm[Hg]John England MD Work Phone: [place] [address]-27-2023 09:57-0500Body temperature 97 [degF]BARRON Feliz MD Work Phone: 1(577) 737-6404[address]27-2023 09:57-0500Body koqxgi03.19 kgBARRON Feliz MD Work Phone: [place] [address]-27-2023 09:57-0500Diastolic blood zclstxup57 mm[Hg]BARRON Feliz MD Work Phone: [facility]02-27-2023 09:57-0500Heart rate70 /min BARRON Feliz MD Work Phone: 1(104) 390-4897[address]27-2023 09:57-0500Respiratory rate 16 /FaustoBARRON Feliz MD Work Phone: [facility]02-27-2023 09:57-8324FkM8% (BldA) [Mass fraction]97 %BARRON Feliz MD Work Phone: [place] [address]-27-2023 09:57-0500Systolic blood tdysxkmx795 mm[Hg]BARRON Feliz MD Work Phone: [place] [address]-09-2023 15:39-0500Body wmwbyy268.9 Hunter England MD Work Phone: [facility]02-09-2023 15:39-0500Body temperature 97.7 [degF]John England MD Work Phone: [place] [address]-09-2023 15:39-0500Body hlsbuj96.73 kgJohn England MD Work Phone: [place] [address]-09-2023 15:39-0500Diastolic blood cqthuzyt11 mm[Hg]John England MD Work Phone: [place] [address]-09-2023 15:39-0500Heart rate64 /min John England MD Work Phone: [place] [address]-09-2023 15:39-0500Respiratory rate 16 /minJohn England MD Work Phone: [facility]02-09-2023 15:39-1711GhZ7% (BldA) [Mass fraction]97 %John England MD Work Phone: [facility]02-09-2023 15:39-0500Systolic blood rzzkfdnu990 mm[Hg]John England MD Work Phone: [facility]02-07-2023 10:01-0500Body jzpzpy300.9 cmNA Agustín WELCH Work Phone: [facility]02-07-2023 10:01-0500Body temperature 97.7 [degF]BARRON Feliz MD Work Phone: [facility]02-07-2023 10:01-0500Body etcnor62.82 kgNA Agustín WELCH Work Phone: [facility]02-07-2023 10:01-0500Diastolic blood mm[Hg]BARRON Feliz MD Work Phone: [facility]02-07-2023 10:01-0500Heart rate58 /min BARRON Feliz MD Work Phone: [facility]02-07-2023 10:01-0500Respiratory rate 16 /FaustoBARRON Feliz MD Work Phone: [facility]02-07-2023 10:01-4685PoV7% (BldA) [Mass fraction]99 %BARRON Feliz MD Work Phone: [facility]02-07-2023 10:01-0500Systolic blood ygoyrssx240 mm[Hg]BARRON Feliz MD Work Phone: [facility]12-07-2022 14:55-0500Blood Pressure Azeb PARTIDA [facility] Tuqgbsrh93-87-3072 14:55-0500Diastolic blood jxhrleig47 mm[Hg]Renea PARTIDA General Surgery Ntjqxrbb68-70-0324 14:55-0500Heart rate 60 /minMichael NILL [facility] Elwzemjn95-23-5375 14:55-0500 Respiratory rate16 /minMichael NILL [facility] Lytsjfdh53-88-4189 14:55-0500Systolic blood jcposzqm564 mm[Hg]Renea NILL [facility] [place] Encounters Encounter DateEncounter TypeCare ProviderFacilityStart: 04-28-2025 End: 47-69-7389Ewrljo flowsheetJr. Mechelle Boyer DO Work Phone: [facility] [place] [facility]icsStart: 04-28-2025 End: 65-23-3718Spwetq flowsheetJr. Mechelle Boyer DO Work Phone: [facility]icsStart: 04-20-2025 End: 97-69-2926Dhwfdv flowsEvangelist Morales MD Work Phone: [facility]olaryngologyStart: 04-20-2025 End: 36-91-3219Pgvlqzmaikel Morales MD Work Phone: [facility]olaryngologyStart: 04-20-2025 End: 19-80-7019Dwwtmy outpatient visit 15 minutesSerene Morales MD Work Phone: [facility] OtolaryngologyComment on above: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)Start: 04-20-2025 End: 13-27-0956hleaovwwioTWEXTZ H TIMMISNot AvailableStart: 04-19-2025 End: 82-73-3645Swolzbuoc encounterJr. Mechelle Boyer DO Work Phone: [facility] [place] OrthopaedicsComment on above:hip DOM Start: 04-14-2025 End: 65-47-1201Mnzpym flowsheetJr. Mechelle Boyer DO Work Phone: [facility] [place] [facility]opaedicsStart: 04-14-2025 End: 17-94-5515Senijp flowsheetJr. Mechelle Boyer DO Work Phone: [facility]icsStart: 04-14-2025 End: 89-76-0605Tbqskc outpatient visit 25 minutesJr. Mechelle Boyer DO Work Phone: [facility]opaedicsComment on above:Left hip pain (Primary Dx); Pseudogout involving multiple joints; Primary osteoarthritis of left hipStart: 04-14-2025 End: 04-66-2496vvifheohhxOH., MECHELLE BOYERNot AvailableStart: 03-26-2025 End: 45-90-0898Caglrb flowsheetMason Johnson MD Work Phone: [facility] MedinceStart: 03-26-2025 End: 00-10-6364Ilemya flowsheetMason Johnson MD Work Phone: [facility] MedinceStart: 03-26-2025 End: 12-99-3288Ppxmoh outpatient visit 25 minutesDalaron Johnson MD Work Phone: [facility] MedinceComment on above:Primary osteoarthritis of left hip (Primary Dx); Pseudogout involving multiple joints; Primary hypertension ; 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, without long-term current use of insulin (HCC); Moderate mixed hyperlipidemia not requiring statin therapyStart: 03-26-2025 End: 62-33-5778szxblbtktvGCGSUJ B BERRYNot AvailableStart: 03-12-2025 End: 35-73-1219Ejipadtbd Result EncounterMason Johnson MD Work Phone: [facility] External Department UnsolicitedStart: 03-12-2025 End: 56-99-9767Gvafmggxu Result EncounterMason Johnson MD Work Phone: [facility] External Department UnsolicitedStart: 01-19-2025 End: 97-93-5708Bhryuv Tahir Morales MD Work Phone: [facility] CI ENTStart: 01-19-2025 End: 90-52-8635Kfdmyl Tahir Morales MD Work Phone: [facility] CI ENTStart: 01-19-2025 End: 51-98-4232bpnbeteguqMANGDL H TIMMISNot AvailableStart: 01-19-2025 End: 51-75-9049Qminvy outpatient visit 15 minutesSerene Morales MD Work Phone: [facility]S CI ENTComment on above: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)Start: 01-06-2025 End: 93-24-3014Mnydqo Leah Johnson MD Work Phone: [facility] CI FMStart: 01-06-2025 End: 40-25-3519Qyvpas Leah Johnson MD Work Phone: [facility] CI FMStart: 01-06-2025 End: 41-14-4608Hcwptd outpatient visit 15 minutesMason Johnson MD Work Phone: [facility] CI FMComment on above:Left lumbar radiculitis (Primary Dx); Left hip painStart: 01-06-2025 End: 01-79-0134wayageicbwEFDAYO B BERRYNot AvailableStart: 12-28-2024 End: 68-59-6479Eaqfgdtlb Result EncounterMason Johnson MD Work Phone: [facility]S External Department UnsolicitedStart: 12-28-2024 End: 60-61-3800Jbobyncmy Result EncounterMason Johnson MD Work Phone: [facility]S External Department UnsolicitedStart: 12-28-2024 End: 29-48-2480Nchsfb outpatient visit 25 minutesMason Johnson MD Work Phone: [facility] CI FMComment on above:Left hip pain (Primary Dx); Effusion of left knee; Acute pain of left kneeStart: 12-28-2024 End: 76-33-5273ewvqfryrqbBBZSXC B BERRYNot AvailableStart: 12-09-2024 End: 24-95-4682Cvxihf flowsNiecy Johnson MD Work Phone: [facility] CI FMStart: 12-09-2024 End: 20-47-8280Orzsbn Leah Johnson MD Work Phone: [facility] CI FMStart: 12-09-2024 End: 82-17-1146Swggbumrr Result EncounterMason Johnson MD Work Phone: [facility]S External Department UnsolicitedStart: 12-09-2024 End: 74-78-0410Yvvgla outpatient visit 25 minutesDalaron Johnson MD Work Phone: noMS CI FMComment on above:Inflammatory arthritis (Primary Dx); Effusion of left knee; Acute pain of left knee; 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, without long-term current use of insulin ([facility]/HCC)Start: 12-09-2024 End: 21-50-6497ahlioloicoSATTMY B BERRYNot AvailableStart: 12-02-2024 End: 42-34-8650Qhawpaejs Result EncounterGeneric External Data ProviderNOMS External Department UnsolicitedStart: 12-02-2024 End: 85-87-6706Viplqacmm Result EncounterGeneric External Data ProviderNOMS External Department UnsolicitedStart: 12-02-2024 End: 38-72-0408phgwgzucjaQCCLYK B BERRY IIFacility:[facility] Start: 11-04-2024 End: 37-57-5532Uoyzpw outpatient visit 15 minutesG Jeyson Feliz MD Work Phone: Radiation OncologyComment on above:Acquired hypothyroidism (Primary Dx)Start: 11-04-2024 End: 61-55-7026Wkavvc outpatient visit 25 minutesJohn England MD Work Phone: Hematology/OncologyComment on above: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); Lung nodules; Stage 3 chronic kidney disease, unspecified whether stage 3a or 3b CKD (HCC) Start: 11-04-2024 End: 53-97-7411zosxxsvpbqYVinh YINacility:[facility] Start: 10-28-2024 End: 57-18-6741Ijxdaurug Result EncounterGeneric External Data ProviderNOMS External Department UnsolicitedStart: 10-28-2024 End: 57-56-9119Soczczfhl Result EncounterGeneric External Data ProviderNOMS External Department UnsolicitedStart: 86-87-5659oinauqbaneMHWNJV B BERRY II [facility]: 10-26-2024 End: 35-70-1368Dtrmsl Leah Johnson MD Work Phone: [facility] CI FMStart: 10-26-2024 End: 36-20-7804Vvuxrd Leah Johnson MD Work Phone: [facility] CI FMStart: 10-26-2024 End: 27-46-3026Yzdezq outpatient visit 15 minutesDalaron Johnson MD Work Phone: [facility] CI FMComment on above:Primary osteoarthritis of left hip (Primary Dx); Neck pain on left side; Left hip pain; Spondylosis of cervical region without myelopathy or radiculopathy; Rheumatoid arthritis, unspecifiedStart: 10-26-2024 End: 84-37-5729zhbboczjkuRSCHKQ B BERRYNot AvailableStart: 10-20-2024 End: 12-13-1686Ccqgsc Tahir Morales MD Work Phone: [facility] CI ENTStart: 10-20-2024 End: 74-58-3687Shrten Tahir Morales MD Work Phone: [facility] CI ENTStart: 10-20-2024 End: 83-02-5064ubzyotlpgkHCLPTR H TIMMISNot AvailableStart: 10-20-2024 End: 98-17-0494Kwzyko outpatient visit 15 minutesSerene Morales MD Work Phone: N[facility] CI ENTComment on above:Cancer of base of tongue (CMS/HCC) (Primary Dx)Start: 10-13-2024 End: 74-37-8185Ejmxksslk Result EncounterMason Johnson MD Work Phone: [facility]S External Department UnsolicitedStart: 10-13-2024 End: 77-32-8041Jdxtfzyfx Result EncounterMason Johnson MD Work Phone: NOQT External Department UnsolicitedStart: 10-12-2024 End: 47-88-8894Bmfqgw outpatient visit 25 minutesDalaron Johnson MD Work Phone: N[facility] CI FMComment on above:Neck pain on left side (Primary Dx); Left hip pain; Osteoarthritis, unspecified osteoarthritis type, unspecified site; Stress incontinence of urineStart: 10-12-2024 End: 91-09-1348wohxyeogzaAUCTRE B BERRYNot AvailableStart: 10-12-2024 End: 74-01-1337Fuvdfq flowsNiecy Johnson MD Work Phone: [facility] CI FMStart: 10-12-2024 End: 49-66-1696Pzxufc Leah Johnson MD Work Phone: [facility] CI FMStart: 09-17-2024 End: 33-76-7804Zceeic flowsheetNatalie A Felter LIDDING MACHINE OPERATOR-ARTIST AND REPERTOIRE MANAGER Work Phone: N[facility]S SWS DERMStart: 09-17-2024 End: 75-07-5740Lsqoht flowsheetNatalie A Felter LIDDING MACHINE OPERATOR-ARTIST AND REPERTOIRE MANAGER Work Phone: [facility]S SWS DERMStart: 09-17-2024 End: 35-35-0791clupiamsipTUDPDWO A FELTERNot AvailableStart: 09-17-2024 End: 03-65-7508Dpsjdn outpatient visit 10 minutesNatalie A Felter LIDDING MACHINE OPERATOR-ARTIST AND REPERTOIRE MANAGER Work Phone: N[facility]S SWS DERMComment on above:Seborrheic keratosis (Primary Dx); Actinic keratosis; Seborrheic keratosis, inflamedStart: 08-31-2024 End: 40-41-8740Ovneyw flowsNiecy Johnson MD Work Phone: [facility] CI FMStart: 08-31-2024 End: 36-98-0822Sffnhv Leah Johnson MD Work Phone: [facility] CI FMStart: 08-31-2024 End: 03-07-1346Xtllc of hemosiderin, quantMason Johnson MD Work Phone: NOMS HealthcareStart: 08-31-2024 End: 74-30-4493Xjmblrl encounter procedureMason Johnson MD Work Phone: noms CI FMComment on above:Routine general medical examination at health care facility (Primary Dx); ACP (advance care planning); Hyperlipidemia, unspecified (CMS/HCC); Secondary and unspecified malignant neoplasm of lymph nodes of head, face and neck (CMS/HCC); OJEDA (nonalcoholic steatohepatitis); Moderate mixed hyperlipidemia not requiring statin therapy (CMS/HCC); Prostate cancer screening; 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, without long-term current use of insulin (CMS/HCC); Torticollis; Actinic keratosisStart: 08-31-2024 End: 59-20-7778bokscibldrZYRBRR B BERRYNot AvailableStart: 07-21-2024 End: 30-38-8789Jvfmyq outpatient visit 15 minutesHisravani Morales MD Work Phone: N[facility] CI ENTComment on above:Cancer of base of tongue (CMS/HCC) (Primary Dx)Start: 07-21-2024 End: 25-14-5700tabnkvkyzlOTEXPX H TIMMISNot AvailableStart: 07-21-2024 End: 61-81-8083Jkhchh Tahir Morales MD Work Phone: NOLH CI ENTStart: 07-21-2024 End: 38-00-3408Cuxauw Tahir Morales MD Work Phone: NORZ CI ENTStart: 07-15-2024 End: 61-32-6205Saffaupw SupportJoesuzie Berhane Rodriguez NP Work Phone: [facility] CI FMComment on above:Need for vaccinationStart: 06-16-2024 End: 72-83-1815Zbshpy Tahir Morales MD Work Phone: [facility] CI ENTStart: 06-16-2024 End: 00-31-0430Pzvkxf Tahir Morales MD Work Phone: [facility] CI ENTStart: 06-16-2024 End: 63-97-6739mnakmpdwexYPWFTL H TIMMISNot AvailableStart: 06-16-2024 End: 34-03-5128Pslqvd outpatient visit 15 minutesSerene Morales MD Work Phone: NOMM CI ENTComment on above:Cancer of base of tongue (CMS/HCC) (Primary Dx)Start: 05-26-2024 End: 34-08-5592Gvgjwn flowsheetNatalie A Felter LIDDING MACHINE OPERATOR-ARTIST AND REPERTOIRE MANAGER Work Phone: [facility]S SWS DERMStart: 05-26-2024 End: 47-79-6228Zowmxy flowsheetNatalie A Felter LIDDING MACHINE OPERATOR-ARTIST AND REPERTOIRE MANAGER Work Phone: [facility] SWS DERMStart: 05-26-2024 End: 23-40-6887rrjdfxdyxiGQIHXPE A FELTERNot AvailableStart: 05-26-2024 End: 29-94-4006Ehziug outpatient visit 10 minutesNatalie A Felter LIDDING MACHINE OPERATOR-ARTIST AND REPERTOIRE MANAGER Work Phone: N[facility]S SWS DERMComment on above:Seborrheic keratosis (Primary Dx); Actinic keratosisStart: 05-19-2024 End: 89-21-3083Igxulb Tahir Morales MD Work Phone: [facility] CI ENTStart: 05-19-2024 End: 92-90-9084Dvwxqfmaikel Morales MD Work Phone: [facility] CI ENTStart: 05-19-2024 End: 22-02-5368Cbpczk outpatient visit 15 minutesHisravani Morales MD Work Phone: NOCA CI ENTComment on above:Cancer of base of tongue (CMS/HCC) (Primary Dx)Start: 05-19-2024 End: 79-77-4225pqeeaqbxpqFRANVF H TIMMISNot AvailableStart: 05-18-2024 End: 90-21-7314DbzowoIkiypafjChristo Mitchell STRIKE OFF MACHINE OPERATOR Work Phone: noms CWM FMComment on above:Primary hypertension (CMS/HCC)Start: 05-06-2024 End: 81-59-5710Jcvvlm outpatient visit 25 minutesJohn England MD Work Phone: Hematology/OncologyComment on above: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); Lung nodules; Stage 3 chronic kidney disease, unspecified whether stage 3a or 3b CKD (HCC) Start: 05-06-2024 End: 83-25-3257inuxktvnxqOIZMD ABHYANKARFacility:[facility]ertart: 05-06-2024 End: 35-42-9679Wujpvnn encounter procedureG Jeyson Feliz MD Work Phone: Radiation OncologyComment on above:Head and neck cancer (HCC) (Primary Dx)Start: 04-30-2024 End: 13-64-8639Yjzsop Leah Johnson MD Work Phone: [facility] CI FMStart: 04-30-2024 End: 00-37-4630Euapic Leah Johnson MD Work Phone: [facility] CI FMStart: 04-30-2024 End: 54-61-2059jmxgjuxyufMMQUBV B BERRYNot AvailableStart: 04-30-2024 End: 37-26-2124Lgfntp outpatient visit 25 minutesMason Johnson MD Work Phone: [facility]S CI FMComment on above:Primary hypertension (CMS/HCC) (Primary Dx); Controlled type 2 diabetes mellitus without complication, without long-term current use of insulin (CMS/HCC); 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)Start: 04-23-2024 End: 72-08-2223Vpuylpeqx Result EncounterGeneric External Data ProviderNOMS External Department UnsolicitedStart: 04-23-2024 End: 69-20-2202Zzslxzijr Result EncounterGeneric External Data ProviderNOMS External Department UnsolicitedStart: 04-23-2024 End: 79-23-8644xqjgsqfgplEXDPI ABHYANKARFacility:[facility]ertart: 04-23-2024 End: 73-58-7104Jmrmcakvuw hospital visit by physicianArrival Time Radiology Work Phone: Radiology Pet CTComment on above:Cancer of the base of tongue (HCC) [C01]Start: 04-21-2024 End: 90-46-2418Oapjxc flowsEvangelist Morales MD Work Phone: noms CI ENTStart: 04-21-2024 End: 52-29-1486Komiyp Tahir Morales MD Work Phone: noms CI ENTStart: 04-21-2024 End: 98-97-1886Dprkjh outpatient visit 15 minutesSerene Morales MD Work Phone: noms CI ENTComment on above:Cancer of base of tongue (CMS/HCC) (Primary Dx)Start: 04-07-2024 End: 68-15-9189fnknttzeuzCuxajkckmKing's [facility] [place] Work Phone: Start: 04-07-2024 End: 58-59-5349Ceiupep encounter procedureKind[facility] Work Phone: Start: 03-24-2024 End: 02-06-4653Lmpgts Tahir Morales MD Work Phone: noms CI ENTStart: 03-24-2024 End: 98-38-8636Htzmnm Tahir Morales MD Work Phone: noms CI ENTStart: 03-24-2024 End: 30-90-3449Dibldd outpatient visit 15 minutesHisravani Morales MD Work Phone: noms CI ENTComment on above:Cancer of base of tongue (CMS/HCC) (Primary Dx)Start: 03-04-2024 End: 67-27-3026Cxipiqfhk Result EncounterSeli Drake MD Work Phone: noms External Department UnsolicitedStart: 03-04-2024 End: 32-32-4657Zxnbvewck Result EncounterSeli Drake MD Work Phone: noms External Department UnsolicitedStart: 02-25-2024 End: 45-24-3727Yqymil Tahir Morales MD Work Phone: noms CI ENTStart: 02-25-2024 End: 03-46-6044Fdstlu Tahir Morales MD Work Phone: noms CI ENTStart: 02-25-2024 End: 82-87-5173Auxtzr outpatient visit 15 minutesHisravani Morales MD Work Phone: noms CI ENTComment on above:Cancer of base of tongue (CMS/HCC) (Primary Dx)Start: 01-14-2024 End: 10-35-3529hjmgmhfeqtYjikefrvrBlanchard [facility] Work Phone: Start: 01-14-2024 End: 10-10-8849Kacpfri encounter procedureKind[facility] Work Phone: Start: 11-06-2023 End: 82-95-8876Glbtnve encounter procedureYordan Feliz MD Work Phone: Radiation OncologyComment on above:Head and neck cancer (HCC) (Primary Dx)Start: 10-23-2023 End: 36-41-4137Rrdkuy outpatient visit 25 minutesJohn England MD Work Phone: Hematology/OncologyComment on above: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); Lung nodules; Stage 3 chronic kidney disease, unspecified whether stage 3a or 3b CKD (HCC) Start: 07-45-9604Adxcrxqnq encounterReaviva Bob RN Work Phone: Hematology/OncologyComment on above:Care Coordination (Results)Start: 10-16-2023 End: 93-50-7309Ehapewixfh hospital visit by physicianArrival Time Radiology Work Phone: Radiology Pet CTComment on above:Lung nodules [R91.8] Start: 06-12-2023 End: 20-21-8221Wgktghslpy hospital visit by physicianArrival Time Radiology Work Phone: Radiology Pet CTComment on above:Cancer of the base of tongue (HCC) [C01]Start: 26-07-3918Adtuiam encounter procedureSerene Morales MD [facility] Phone: [facility]: 05-08-2023 End: 04-14-4538Wsqxniw encounter procedureG Jeyson Feliz MD Work Phone: Radiation OncologyComment on above:Other specified disorders of thyroid (Primary Dx)Start: 03-20-2023 End: 83-71-5104Aqzaay outpatient visit 25 minutesJohn England MD Work Phone: Hematology/OncologyComment on above: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); Mass of right lungStart: 03-14-2023 End: 60-15-9459Fjpgvbcwoc hospital visit by physicianArrival Time Radiology Work Phone: Radiology Pet CTComment on above:Lung nodules [R91.8] Start: 02-06-2023 End: 46-04-4468Cjoycw Daljit Drake MD Work Phone: Hematology/OncologyComment on above:Hyperlipidemia, unspecified hyperlipidemia type (Primary Dx); Type 2 diabetes mellitus without complication, unspecified whether terminal superintendent insulin use (HCC); Unspecified essential hypertensionLung nodule seen on imaging study (Primary Dx); Disorder of carbohydrate metabolism (HCC)Start: 02-06-2023 End: 70-07-4036Qvovln outpatient visit 25 minutesJohn England MD Work Phone: Hematology/OncologyComment on above: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); Mass of right lung; Lung nodulesStart: 01-29-2023 End: 29-61-3270Zqlauiaato hospital visit by physicianArrival Time Radiology Work Phone: Radiology Pet CTComment on above:Cancer of the base of tongue (HCC) [C01]Start: 11-28-2022 End: 14-49-8657Aloqjxp encounter procedureG Jeyson Feliz MD Work Phone: Radiation OncologyComment on above: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)Start: 11-07-2022 End: 62-35-1450Vclpxs outpatient visit 25 minutesJohn England MD Work Phone: Hematology/OncologyComment on above: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); Chemotherapy-induced neutropenia (HCC); Stage 3 chronic kidney disease, unspecified whether stage 3a or 3b CKD (HCC) Start: 10-31-2022 End: 00-73-2234ymhkjqstcnUzvum [address] Work Phone: Hematology/OncologyComment on above: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); Stage 3 chronic kidney disease, unspecified whether stage 3a or 3b CKD (HCC) Start: 10-31-2022 End: 86-97-1668Eureqva encounter Cintia Cadena APRN.CNP Work Phone: SANDUSKYComment on above:Head and neck cancer (HCC) (Primary Dx)Start: 10-25-2022 End: 06-47-4624vtryxmrkvhLhwddShanita Cadena APRN.CNP Work Phone: Hematology/OncologyComment on above: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); Chemotherapy-induced neutropenia (HCC)Start: 10-25-2022 End: 11-09-0290Fnfdiqk encounter procedureNatalie Cadena APRN.CNP Work Phone: SANDUSKYStart: 21-56-6133Ehynxhl encounter procedureG Jeyson Feliz MD Work Phone: SANDUSKYStart: 02-37-4450Hclaukfyb Oncology NoteG Jeyson Feliz MD Work Phone: Radiation OncologyComment on above:Completion Note Start: 10-19-2022 End: 17-06-1706kncptbgjlyAdijsaayiq Kaetzel RD Work Phone: sANDUSKYStart: 10-19-2022 End: 81-32-5044Vyagyzwvu therapyDee Gil RD Work Phone: Nutrition TherapyComment on above:Nutrition Counseling Start: 10-19-2022 End: 18-73-6183Uofogy outpatient visit 25 minutesJohn England MD Work Phone: Hematology/OncologyComment on above: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); Chemotherapy-induced neutropenia (HCC)Start: 10-15-2022 End: 26-33-6622Rdhlmlg encounter procedureYordan Feliz MD Work Phone: Radouuuhj OncologyComment on above:Head and neck cancer (HCC) (Primary Dx)Start: 32-03-6403Bnhbadhry encounterJohn England MD Work Phone: Radiation OncologyComment on above:skin irritation Start: 10-08-2022 End: 57-11-7104gnsclrhvecSfaul Elodia Garcia Work Phone: Hematology/OncologyComment on above: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); Cancer of base of tongue (HCC)Start: 10-08-2022 End: 99-40-0699Hfsxcdl encounter procedureYordan Feliz MD Work Phone: Radiation OncologyComment on above:Head and neck cancer (HCC) (Primary Dx)Start: 10-05-2022 End: 28-80-6056tlbgynxfvsIptyxfdyhb Louise RD Work Phone: sANDUSKYStart: 10-05-2022 End: 26-92-5773Ytvomtnlk therapyJacrachaelline Louise RD Work Phone: Nutrition TherapyComment on above:Nutrition Counseling Start: 10-01-2022 End: 89-85-3362wsrprobiukDdzpr [address] Work Phone: Hematology/OncologyComment on above: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); 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)Start: 10-01-2022 End: 62-16-5632Dbbaysh encounter procedureG Jeyson Feliz MD Work Phone: Radiation OncologyComment on above:Tongue cancer (HCC) (Primary Dx)Start: 09-24-2022 End: 87-92-0913Bveliyp encounter procedureG Jeyson Feliz MD Work Phone: Radiation OncologyComment on above:Tongue cancer (HCC) (Primary Dx)Start: 09-21-2022 End: 75-37-1937hpscxnsmosYqdnkytvqk Kaetzel RD Work Phone: sANDUSKYStart: 09-21-2022 End: 88-92-4024Yspvadcve therapyJacrachaelline Ruddyarmando RD Work Phone: Nutrition TherapyComment on above:Nutrition Assessment Start: 09-17-2022 End: 22-88-3424gwgrnhxzlcDroad [address] Work Phone: Hematology/OncologyComment on above: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); Cancer of the base of tongue (HCC)Start: 09-17-2022 End: 29-54-7510Ftwphzn encounter procedureG Jeyson Feliz MD Work Phone: Radiation OncologyComment on above:Tongue cancer (HCC) (Primary Dx)Start: 09-10-2022 End: 89-35-5330xxhvjzkxuwOddkq [address] Work Phone: Hematology/OncologyComment on above: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)Start: 09-10-2022 End: 56-30-3946Bgfhbij encounter procedureG Jeyson Feliz MD Work Phone: Radiation OncologyComment on above:Tongue cancer (HCC) (Primary Dx)Start: 33-50-8788Cskeldhnl encounterMarysol SHRESTHAW Hematology/OncologyComment on above:Social Work ServicesStart: 09-06-2022 Telephone encounterRafael Bob RN Work Phone: Hematology/OncologyComment on above:Care Coordination (C1D1 Post Treatment Call)Start: 09-03-2022 End: 46-12-8934espgnheichDrmyc [address] [place] Work Phone: Hematology/OncologyComment on above: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)Start: 09-03-2022 End: 37-86-3643Uxpewg outpatient visit 15 minutesJohn England MD Work Phone: Hematology/OncologyComment on above: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)Start: 09-03-2022 End: 71-01-3221Lplxjnw encounter procedureG Jeyson Feliz MD Work Phone: Radiation OncologyComment on above:Tongue cancer (HCC) (Primary Dx)Start: 64-84-0478Lcunxwqso encounterRafael Bob RN Work Phone: Hematology/OncologyComment on above:Care Coordination (Pt Questions)Start: 02-06-5313Ragbcabrv encounterRafael Bob RN Work Phone: Hematology/OncologyComment on above:Care Coordination (PET Results)Start: 35-74-1704Foyewhbvv encounterRafael Bob RN Work Phone: Hematology/OncologyComment on above:Care Coordination (Pt Questions)Start: 08-27-2022 End: 21-72-3180Gntgktvkeg hospital visit by physicianArrival Time Radiology Work Phone: Radiology Pet CTComment on above: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]Start: 41-11-6674Btiibyd encounter procedureCcf [facility] DepartmentStart: 08-23-2022 End: 60-75-6547Htlyabplet hospital visit by physicianYordan Feliz MD Work Phone: Radiology Pet CTStart: 08-23-2022 End: 48-78-1897Yvgtxby encounter procedureYordan Feliz MD Work Phone: Radiation OncologyComment on above:Tongue cancer (HCC) (Primary Dx)Start: 78-68-0282Genxeykxe Oncology NoteG Jeyson Feliz MD Work Phone: Radiation OncologyComment on above:Simulation Note Treatment PlanningStart: 67-81-8948Tnoduntqt encounterRafael Bob RN Work Phone: Hematology/OncologyComment on above:Care Coordination (Treatment Planning)Start: 84-66-3170Rlibufutk encounterReaviva Bob RN Work Phone: Hematology/OncologyComment on above:Care Coordination (Treatment Planning)Start: 08-20-2022 End: 34-42-4105dfvrwtpeszHgjmeoambv Kaetzel RD Work Phone: sANDUSKYStart: 08-20-2022 End: 97-78-7409Jcetwiytk therapyJacdavid Gil RD Work Phone: Nutrition TherapyComment on above:Nutrition Telephone Start: 91-56-4145Tynodyj encounter procedureCcf [facility] DepartmentStart: 08-16-2022 End: 66-99-6303Kgqsnx outpatient new 60 minutesJohn England MD Work Phone: Hematology/OncologyComment on above: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)Start: 64-00-4663Hifbvie encounter procedureCcf [facility]Community [facility] DepartmentStart: 75-80-0309Sgdqhbpgi encounterG Jeyson Feliz MD Work Phone: Radiation OncologyComment on above:Dental Clearance - Radiation TherapyStart: 33-00-8721zlcwekfcplMlolag Weyer RNRadiation Oncology Comment on above:Patient EducationStart: 08-14-2022 End: 77-48-0743Krcobrd encounter procedureG Jeyson Feliz MD Work Phone: Radiation OncologyComment on above:Tongue cancer (HCC) (Primary Dx); Head and neck cancer (HCC)Start: 78-47-3457Wgibrgqhp for preprocedural laboratory examinationDR SERENE [facility] Centertart: 07-31-2022 End: 31-64-4940Xlksszd encounter procedureMichael R NILL General Surgery Nill/Said Bull Start: 07-31-2022 End: 94-89-9510pzmfqbdnvvCqrggvx R NILLFacility:[facility] Hospitaltart: 07-27-2022 End: 06-73-8656ysrxvgzgksEW SERENE GUZMANMISFacility:K4Dmawg: 07-27-2022 End: 03-59-9623Ddtbxfhed for preprocedural laboratory examinationDR SERENE CARMENFacility:Q9Eznho: 07-18-2022 End: 89-02-9370whzjqaunzaRwbyjsj R NILLFacility:CD:[id number]: 07-11-2022 End: 99-25-3179mlfegepbhcJA RENEA NILLFacility:E6Rqgyj: 06-13-2022 End: 47-88-6185bnfjojdecyPjfwvwf R NILLFacility:[facility] Hospitaltart: 06-13-2022 End: 18-34-3218Wjvllxa encounter procedureMichael R NILL General Surgery Nill/Said Bull Start: 06-09-2022 End: 04-66-0651cejgiogqvbXC KIM E KNIGHTFacility:I9Hupyp: 20-65-9354wlfjzppdss Renea NILLFacility:ANNETTE BellevueStart: 02-27-2022 End: 46-26-7684xhcriumwlhNR KIM E KNIGHTFacility:H1 Procedures DateProcedureProcedure DetailPerforming ClinicianStart: 39-16-9183Tvjmw hip unilateral with pelvis 2-3 viewsJr. Mechelle Last Stepanic DO Work Phone: Start: 91-93-1655Vld any jt lower extrem w/o contrast matrlDdaisy Johnson MD Work Phone: Start: 02-35-9099FT LUMBAR SPINE 2 OR 3Naveed Johnson MD Work Phone: Start: 58-25-9687Jlkokjlrqw examination knee 3 views Mason Johnson MD Work Phone: Start: 49-64-0858Ivnqmfomyp glycosylated j5sUtmmiqdemi Johnson MD Work Phone: Start: 36-48-5572RCH T3 SERPL-MCNCGeneric External Data ProviderStart: 52-05-7640CKE T4 SERPL-MCNCGeneric External Data Provider Start: 42-16-1436SOE TSH SERPL-ACNCGeneric External Data ProviderStart: 30-83-5339EW NECK SOFT TISSUE W IVCONGeneric External Data ProviderStart: 80-58-1000Kw thorax w/contrast materialGeneric External Data ProviderStart: 87-51-4062QOL CBC W AUTO DIFF BLDGeneric External Data ProviderStart: 10-13-2024 XR CERVICAL SPINE 2-3VDdaisy Johnson MD Work Phone: Start: 33-21-1799UV HIP LT MIN 2VDdaisy Johnson MD Work Phone: Start: 09-17-2024 End: 88-30-0138RCOIXDNYLDS SKIN LESIONNatalie A Felter LIDDING MACHINE OPERATOR-ARTIST AND REPERTOIRE MANAGER Work Phone: Start: 76-37-3265Jnngiutdur glycosylated k0yZycyuodemi Johnson MD Work Phone: Start: 29-85-5878ZZIPMKPDOQY SKIN LESIONNatalie A Felter LIDDING MACHINE OPERATOR-ARTIST AND REPERTOIRE MANAGER Work Phone: Start: 75-21-5262Pi soft tissue neck w/contrast Ozzy England MD Work Phone: Start: 97-55-9795Yg thorax w/contrast Ozzy England MD Work Phone: Start: 18-10-8190NJA CBC W AUTO DIFF BLDGeneric External Data ProviderStart: 73-68-1772Gygys count complete auto&auto difrntl wbcJohn England MD Work Phone: Start: 76-26-9708NVV LIPID PROFILE (FASTING)Shaikh Vidal WELCH Work Phone: Start: 52-52-2489Lh soft tissue neck w/contrast Ozzy England MD Work Phone: Start: 14-98-9704Yz thorax w/contrast Ozzy England MD Work Phone: Start: 55-18-1073Whgor count complete auto&auto difrntl wbcJohn England MD Work Phone: Start: 79-84-7972Ol thorax w/contrast Ozzy England MD Work Phone: Start: 21-02-8295Hg thorax w/contrast Ozzy England MD Work Phone: Start: 44-13-4793Oua imaging ct attenuation skull base mid-thighG Jeyson Feliz MD Work Phone: Start: 04-52-8173Pvgh bld gluc mntr dev cleared fda spec home useCcf ProviderStart: 46-78-0379CNW + DIFFJohn England MD Work Phone: Start: 45-63-7101Mmpnomyxgcnre metabolic panelJohn England MD Work Phone: Start: 06-16-3220Zprkn count complete auto&auto difrntl wbcJohn England MD Work Phone: Start: 51-18-9605Fzozx count complete auto&auto difrntl wbcJohn England MD Work Phone: Start: 53-34-4542Jrd imaging ct attenuation skull base mid-thighG Jeyson Feliz MD Work Phone: Start: 93-62-4705Enam bld gluc mntr dev cleared fda spec home useCcf ProviderStart: 25-72-4803RNE screeningDR MANNIE NELSONComment on above:Performed By: #### PSAD #### [facility] [address] [place] [address] Dr. Degroot ChangStart: 45-79-8957JeodmabhunrLdqtlva NILL Start: 12-91-8196LqupelyancwUzqcwlm NILL Start: 50-05-1045SjvbmwogaowHvpwbkz NILL Start: 41-73-1166OxzopaytgvtGukqiph NILL Start: 60-07-5384Bepsqbk catheterizationMichael NILL Start: 68-24-0789Otqwmvenl of stent in cardiac conduit Renea NILL Start: 35-02-8453KnvwpcgfhvvRdioplw NILL Start: 56-18-0665HrhwwhiooftYzkujkn NILL Start: 92-01-8952Bfzwimg colectomyMichael NILL Comment on above:with colocolostomyBilateral extraction of cataractsMichael NILL Plan of Treatment DateCare ActivityDetailAuthorStart: 34-53-5179Rsjjxnth ScreeningDiabetes ScreeningLima City Hospitaltart: 58-31-2923Jbvkncoq ScreeningDiabetes Screening [facility]: 47-82-3303Buwvzskf ScreeningDiabetes ScreeningLima City Hospitaltart: 94-69-0114Kjstc screening for proteinDiabetes: Urine Protein [facility]eningASH[facility] HealthcareStart: 20-29-5705MXHVAGZC SCREENDIABETES SCREENLima City Hospitaltart: 54-81-6654Rsjuoils ScreeningDiabetes ScreeningCommunity [facility] Medical [facility] Start: 06-20-6943KJNDHSGI SCREENDIABETES SCREENLima City Hospitaltart: 10-31-2025 DIABETES SCREENDIABETES SCREENLima City Hospitaltart: 97-04-0908MZBGDMZJ SCREEN DIABETES SCREENLima City Hospitaltart: 41-53-5907QPBLRIJQ SCREENDIABETES SCREEN [facility]: 31-12-1754HPIRORUY SCREENDIABETES SCREENCommunity Regional Medical Center Start: 22-49-7059NGPLLGBR SCREENDIABETES SCREENLima City Hospitaltart: 09-24-2025 DIABETES SCREENDIABETES SCREENLima City Hospitaltart: 40-34-5035MZQSHALZ SCREEN DIABETES SCREENLima City Hospitaltart: 46-14-1093YKSPHAIS SCREENDIABETES SCREEN [facility]: 98-84-3995RWMJVFYK SCREENDIABETES SCREENCommunity Regional Medical Center Start: 02-24-2026Medicare Annual Wellness (AWV)Medicare Annual Wellness (AWV) [facility] HealthcareStart: 99-86-0509KWBHZOZP SCREENDIABETES SCREENCommunity Regional Medical Center Start: 07-20-2025 End: 14-34-4250Yjqwozz encounter yiiuqwaui07/13/2026 8:30 AM EST Office Visit [facility] [place] [facility] [address] [facility] [address] [place] [address] Serene Morales MD [address] [facility] [address] [place] [address] [facility] [place] OtolaryngologyStart: 06-16-2025 End: 61-72-4212Kkrvziv encounter iriemqbef07/10/2025 1:00 PM EST [facility] [address] [place] [phone] Jr. 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 Stage 3 chronic kidney disease, unspecified whether stage 3a or 3b CKD (HCC) Expected: 05/06/2025 (Approximate), Expires: 11/04/2025[facility] Work Phone: Comment on above:Expected: 05/06/2025 (Approximate), Expires: 11/04/2025Start: 05-06-2025 End: 99-62-2421Oyimzayfrplvu metabolic 2000 panel - Serum or PlasmaCOMPREHENSIVE METABOLIC PANEL Lab Routine 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 Stage 3 chronic kidney disease, unspecified whether stage 3a or 3b CKD (HCC) Expected: 05/06/2025 (Approximate), Expires: 11/04/2025[facility] ClinicComment on above:Expected: 05/06/2025 (Approximate), Expires: 11/04/2025Start: 05-06-2025 End: 63-36-2693LV Chest W contrast IVCT CHEST W IVCON Radiology Routine 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 Stage 3 chronic kidney disease, unspecified whether stage 3a or 3b CKD (HCC) Expected: 05/06/2025 (Approximate), Expires: 12/04/2025[facility] ClinicComment on above:Expected: 05/06/2025 (Approximate), Expires: 12/04/2025Start: 05-06-2025 End: 68-06-3540CX Neck W contrast IVCT NECK SOFT TISSUE W IVCON Radiology Routine 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 Stage3 chronic kidney disease, unspecified whether stage 3a or 3b CKD (HCC) Expected: 05/06/2025 (Approximate), Expires: 12/04/2025[facility] ClinicComment on above:Expected: 05/06/2025 (Approximate), Expires: 12/04/2025Start: 05-06-2025 End: 64-11-1596Dwifjsq encounter mmzobowbz67/30/2025 10:30 AM EDT Office Visit Radiation Oncology [address] [place] [address] Yordan Feliz MD [address] [place] [address] 3 month follow upRadiation OncologyComment on above:3 month follow upStart: 05-06-2025 End: 04-35-4998Dinwrn-up qidagowbd18/30/2025 10:00 AM EDT Visit (SP) Office Hematology/Oncology [address] [place] [address] John England MD [address] [facility] [place] [address] 6 MONTH FOLLOW UP AFTER CT SCANHematology/OncologyComment on above:6 MONTH FOLLOW UP AFTER CT SCANStart: 04-29-2025 End: 84-81-3965Ybcpajc encounter oajtinwwo73/23/2025 9:15 AM EDT Appointment Radiology Pet CT [address] [place] [address] CT CHEST AND NECKRadiology Pet CTComment on above:CT CHEST AND NECKStart: 04-28-2025 End: 96-16-5489Zfsklhj encounter procedureNOMS Garcia OrthopaedicsComment on above:ArrivedStart: 93-56-8033Tqkgxhch blood countHemoglobin/HematocritLima City Hospitaltart: 12-89-9217Nuoytdwhed measurementSerum CreatinineClemercy health st. [facility] Start: 04-20-2025 End: 95-90-0772Uhypgcg encounter procedureNOPAWHUSKA HOSPITAL – PAWHUSKA ENTComment on above:Arrived Start: 04-14-2025 End: 45-00-8421Uedxaum encounter ddazwsgtv23/08/2025 1:15 PM EDT Office Visit [facility] [address] [place] [phone] Jr. 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, without long-term current use of insulin (HCC) Moderate mixed hyperlipidemia not requiring statin therapy Expected: 03/26/2025 (Approximate), Expires: 03/26/2026[facility] HealthcareComment on above:Expected: 03/26/2025 (Approximate), Expires: 03/26/2026Start: 03-26-2025 End: 11-33-9376Uccqp 1996 panel - Serum or PlasmaLipid panel Lab Routine Primary hypertension 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, without long-term current use of insulin (HCC) Moderate mixed hyperlipidemia not requiring statin therapy Expected: 03/26/2025 (Approximate), Expires: 03/26/2026[facility] Work Phone: Comment on above:Expected: 03/26/2025 (Approximate), Expires: 03/26/2026Start: 03-26-2025 End: 14-81-7056Eovvobehoxsr/Creatinine panel in random UrineMicroalbumin / creatinine, urine ratio Lab Routine Primary hypertension 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, without long-term current use of insulin (HCC) Moderate mixed hyperlipidemia not requiring statin therapy Expected: 03/26/2025 (Approximate), Expires: 03/26/2026[facility] HealthcareComment on above:Expected: 03/26/2025 (Approximate), Expires: 03/26/2026Start: 03-26-2025 End: 92-62-8516Njhygwb encounter procedureNOMS [place] Young MedinceComment on above:ArrivedStart: 67-67-6595Pufwkhilo vaccinationInfluenza Vaccine (#1)[facility] HealthcareStart: 54-25-8895Rysonxdxyg A1c measurementDiabetes: Hemoglobin A1C [facility] HealthcareStart: 01-19-2025 End: 43-98-3352Vobdhic encounter ywkbcphrg18/15/2025 8:00 AM EDT Office Visit [facility] [address] [place] [address] Serene Morales MD [address] [place] [address] [facility] CI ENTStart: 01-06-2025 End: 12-76-9729Dbmcxgs encounter procedureNOMS CI FMComment on above:Left hip painStart: 12-28-2024 End: 38-53-7010BQ Lumbar spine 2 or 3 ViewsXR lumbar spine 2 or 3 views Imaging Routine Left hip pain Expected: 12/28/2024, Expires: 12/28/2025[facility] Work Phone: Comment on above:Expected: 12/28/2024, Expires: 12/28/2025Start: 12-28-2024 End: 16-08-7433Iqwzqpa encounter /23/2025 9:30 AM EDT Office Visit [facility] [address] [place] [address] Mason Johnson MD [address] [place] [address] [facility] CI FMStart: 12-09-2024 End: 12-09-2025 reactive protein [Mass/volume] in Serum or PlasmaC-reactive protein Lab Routine Inflammatory arthritis Expected: 12/09/2024 (Approximate), Expires: 12/09/2025N[facility] HealthcareComment on above:Expected: 12/09/2024 (Approximate), Expires: 12/09/2025Start: 12-09-2024 End: 12-17-5862Tvrfnptuixm sedimentation rateSedimentation rate, automated Lab Routine Inflammatory arthritis Expected: 12/09/2024 (Approximate), Expires: 12/09/2025[facility] HealthcareComment on above:Expected: 12/09/2024 (Approximate), Expires: 12/09/2025Start: 12-09-2024 End: 16-72-3569Gphjqit Ab [Titer] in Serum by ImmunofluorescenceANA Lab Routine Inflammatory arthritis Expected: 12/09/2024 (Approximate), Expires: 12/09/2025 [facility] HealthcareComment on above:Expected: 12/09/2024 (Approximate), Expires: 12/09/2025Start: 12-09-2024 End: 20-75-7746YVNBNPAHQR ARTHRITIS DIAGNOSTIC PANEL 3RHEUMATOID ARTHRITIS DIAGNOSTIC PANEL 3 Lab Routine Inflammatory arthritis Expected: 12/09/2024 (Ce roximate), Expires: 12/09/2025[facility] Work Phone: Comment on above:Expected: 12/09/2024 (Approximate), Expires: 12/09/2025Start: 12-09-2024 End: 58-74-0160Hemwf [Mass/volume] in Serum or PlasmaUric acid Lab Routine Inflammatory arthritis Expected: 12/09/2024 (Approximate), Expires: 12/09/2025 [facility] HealthcareComment on above:Expected: 12/09/2024 (Approximate), Expires: 12/09/2025Start: 12-09-2024 End: 49-40-9471EN Knee - left 3 ViewsXR knee 3 views left Imaging Routine Effusion of left knee Acute pain of left knee Expected: 12/09/2024, Expires: 12/09/2025N[facility] HealthcareComment on above:Expected: 12/09/2024, Expires: 12/09/2025Start: 12-09-2024 End: 02-60-0558Jbtltog encounter procedureNOMS CI FMComment on above:Arrived Start: 12-04-2024 End: 16-25-7011Obmakuvqshc [Units/volume] in Serum or PlasmaTHYROID STIMULATING HORMONE Lab Routine Acquired hypothyroidism Expected: 12/04/2024, Expires: 11/04[facility] Work Phone: Comment on above:Expected: 12/04/2024, Expires: 11/04/2025Start: 12-04-2024 End: 68-62-5940Jdvwwtqtn (T4) [Mass/volume] in Serum or PlasmaT4/THYROXINE Lab Routine Acquired hypothyroidism Expected: 12/04/2024, Expires: 11/04/2025 [facility]:Expected: 12/04/2024, Expires: 11/04/2025Start: 12-04-2024 End: 80-62-4440Olnrgwdpeyzkvfgh (T3) [Mass/volume] in Serum or PlasmaT3 Lab Routine Acquired hypothyroidism Expected: 12/04/2024, Expires: 11/04/2025 [facility] CenterComment on above:Expected: 12/04/2024, Expires: 11/04/2025Start: 12-02-2024 End: 58-44-3844Lxalesc encounter kbotxomzs52/28/2025 11:30 AM EDT Office Visit [facility] [address] [place] [address] [place] [address] labNortDuane L. 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 Stage 3 chronic kidney disease, unspecified whether stage 3a or 3b CKD (HCC) Expected: 11/04/2024 (Approximate), Expires: 05/06/2025[facility] ClinicComment on above:Expected: 11/04/2024 (Approximate), Expires: 05/06/2025Start: 11-04-2024 End: 73-66-2026GM Chest W contrast IVCT CHEST W IVCON Radiology Routine 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 Stage 3 chronic kidney disease, unspecified whether stage 3a or 3b CKD (HCC) Expected: 11/04/2024 (Approximate), Expires: 06/05/2025[facility] ClinicComment on above:Expected: 11/04/2024 (Approximate), Expires: 06/05/2025Start: 11-04-2024 End: 02-37-1428VQ Neck W contrast IVCT NECK SOFT TISSUE W IVCON Radiology Routine 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 Stage3 chronic kidney disease, unspecified whether stage 3a or 3b CKD (HCC) Expected: 11/04/2024 (Approximate), Expires: 06/05/2025[facility] Work Phone: Comment on above:Expected: 11/04/2024 (Approximate), Expires: 06/05/2025Start: 11-04-2024 End: 66-99-9120Gvbarxo encounter bcsvcjobg37/30/2025 11:45 AM EDT Office Visit Radiation Oncology [address] [place] [address] [place] [address] Yordan Feliz MD [address] [place] [address] [place] [address] 6 month Follow upRadiation OncologyComment on above:6 month Follow upStart: 11-04-2024 End: 69-04-0393wbopsmktoy11/30/2025 11:20 AM EDT Visit (SP) Office Hematology/Oncology [address] [place] [address] [place] [address] John England MD [address] [place] [address] [place] [address] PT SEES DENA BEFORE SINCERE TODAYHematology/OncologyComment on above:PT SEES DENA BEFORE SINCERE TODAYStart: 10-28-2024 End: 39-89-5211Yobyeii encounter zqkplnhfu55/23/2025 7:45 AM EDT Appointment Radiology Pet CT [address] [place] [address] [place] [address] CT CHEST AND NECKRadiology Pet CTComment on above:CT CHEST AND NECKStart: 10-26-2024 End: 06-28-4751Rtwqaqc encounter procedureNOMS CI FMComment on above:Neck pain on left side; Left hip painStart: 10-20-2024 End: 49-60-3848Zaawbjv encounter wzjfsihcw31/15/2025 8:00 AM EDT Office Visit [facility] [address] [facility] [address] [place] [address] Serene Morales MD [address] [facility] [address] [place] [address] [facility] CI ENTStart: 38-98-5951Guyujeaj blood count Hemoglobin/HematocritLima City Hospitaltart: 22-27-6375Ybpzabvbwy measurement Serum CreatinineLima City Hospitaltart: 10-12-2024 End: 19-07-7195Jncgrex encounter thijeizoa00/07/2025 3:45 PM EDT Office Visit [facility] [address] [facility] [address] [place] [address] Mason Johnson MD [address] [facility] [address] [place] [address] ArrivedNOMS CI FMComment on above:ArrivedStart: 10-12-2024 End: 00-85-9623NO Cervical spine 2 or 3 ViewsXR cervical spine 2 or 3 views Imaging Routine Neck pain on left side Expected: 10/12/2024, Expires: 10/12/2025 [facility] HealthcareComment on above:Expected: 10/12/2024, Expires: 10/12/2025Start: 10-12-2024 End: 09-31-7181AR Hip - left 3 ViewsXR hip left 2 or 3 views Imaging Routine Left hip pain Expected: 10/12/2024, Expires: 10/12/2025[facility] Work Phone: Comment on above:Expected: 10/12/2024, Expires: 10/12/2025Start: 97-60-2123Zrukican screeningDiabetes: Retinopathy ScreeningNOMS HealthcareStart: 08-31-2024 End: 55-28-4543Dbawufe encounter procedureNOMS CI FMComment on above:Arrived Start: 07-21-2024 End: 71-57-2336Rpbxryt encounter procedureNOMS CI ENTComment on above:Arrived Start: 53-15-0560Hgljonu Directive DiscussionAdvance Directive Discussion [facility]: 06-16-2024 End: 11-29-6101Rqtitij encounter uxekxuttg71/10/2024 9:00 AM EST Office Visit [facility] [address] [facility] [address] [place] [address] Serene Morales MD [address] [place] [address] N[facility] CI ENTStart: 12-04-2024Medicare Annual Wellness (AWV)Medicare Annual Wellness (AWV)[facility] HealthcareStart: 34-33-3046Omvxlddrvnif Vaccine: 65+ Years (1 of 2 - PCV)Pneumococcal Vaccine: 65+ Years (1 of 2 - PCV) NOMS HealthcareComment on above:Postponed from 10/31/1949 (Patient Refused) Start: 05-26-2024 End: 60-51-0529Xgelwkx encounter uilpmwtue99/19/2024 10:20 AM EST Office Visit [facility] [address] [place] [phone] Barry Stevens APRN-ARTIST AND REPERTOIRE MANAGER [address] [place] [address] [facility]WS DERMStart: 22-44-5393Iunnabybnm A1c measurementDiabetes: Hemoglobin X1RNSFL HealthcareStart: 05-19-2024 End: 11-42-8710Akhmmfl encounter hnwtwyvgt36/12/2024 9:00 AM EST Office Visit [facility] [address] [facility] [address] [place] [address] Serene Morales MD [address] [facility] [address] [place] [address] N[facility] CI ENTStart: 05-06-2024 End: 30-23-7239yymctkpevd09/30/2024 3:20 PM EDT Visit (SP) Office Hematology/Oncology [address] [facility] [place], [place] [phone] John England MD [address] [place] [address] PT SEES DENA BEFORE SINCERE TODAYHematology/OncologyComment on above:PT SEES DENA BEFORE SINCERE TODAYStart: 05-06-2024 End: 83-49-4729Elgqmux encounter yfbqczxte08/30/2024 3:00 PM EDT Office Visit Radiation Oncology [address] [place] [address] Yordan Feliz MD [address] [place] [address] PT SEES SINCERE AFTER THIS APPTRadiation OncologyComment on above:PT SEES SINCERE AFTER THIS APPTStart: 04-30-2024 End: 21-56-9957Cgnvxmr encounter procedureNOMS CI FMComment on above:Arrived Start: 04-29-2024 End: 97-62-5285Etyuise encounter yxvlzlzbj83/23/2024 10:30 AM EDT Office Visit Radiation Oncology [address] [place] [address] Yordan Feliz MD [address] [place] [address] FollowupRadiation OncologyComment on above:FollowupStart: 04-29-2024 End: 77-01-1909Xzycoa-up jksmuvqnm34/23/2024 10:00 AM EDT Visit (SP) Office Hematology/Oncology [address] [place] [address] [place] [address] John England MD [address] [place] [address] 6 month follow up after scansHematology/OncologyComment on above:6 month follow up after scansStart: 04-23-2024 End: 96-38-3349GNE W Auto Differential panel - BloodCOMPLETE BLOOD COUNT AND DIFFERENTIAL Lab Routine 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 Ex pected: 04/23/2024 (Approximate), Expires: 10/22/2024[facility] Work Phone: Comment on above:Expected: 04/23/2024 (Approximate), Expires: 10/22/2024Start: 04-23-2024 End: 34-12-7248Jscntmbro (Vitamin B12) [Mass/volume] in Serum or PlasmaVITAMIN B12 Lab Routine 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 Expected: 04/23/2024 (Approximate), Expires: 10/22/2024[facility] Work Phone: Comment on above:Expected: 04/23/2024 (Approximate), Expires: 10/22/2024Start: 04-23-2024 End: 95-13-8743Csnyurangsjjc metabolic 2000 panel - Serum or PlasmaCOMPREHENSIVE METABOLIC PANEL Lab Routine 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 Expected:04/23/2024 (Approximate), Expires: 10/22/2024[facility] Work Phone: Comment on above:Expected: 04/23/2024 (Approximate), Expires: 10/22/2024Start: 04-23-2024 End: 96-33-4812SH Chest W contrast IVCT CHEST W IVCON Radiology Routine 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 Expected: 04/23/2024 (Approximate), Expires: 11/21/2024[facility] Work Phone: Comment on above:Expected: 04/23/2024 (Approximate), Expires: 11/21/2024Start: 04-23-2024 End: 13-75-2784JZ Neck W contrast IVCT NECK SOFT TISSUE W IVCON Radiology Routine 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 Expected: 04/23/2024 (Approximate), Expires: 11/21/2024[facility] Work Phone: Comment on above:Expected: 04/23/2024 (Approximate), Expires: 11/21/2024Start: 04-23-2024 End: 95-49-0790Egzdsqyh [Mass/volume] in Serum or PlasmaFERRITIN Lab Routine 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 Expected: 04/23/2024 (Approxima te), Expires: 10/22/2024[facility] Work Phone: Comment on above:Expected: 04/23/2024 (Approximate), Expires: 10/22/2024Start: 04-23-2024 End: 99-37-0107Grvzql [Mass/volume] in Serum or PlasmaFOLATE, SERUM Lab Routine 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 Expected: 04/23/2024 (Appr oximate), Expires: 10/22/2024[facility] Work Phone: Comment on above:Expected: 04/23/2024 (Approximate), Expires: 10/22/2024Start: 04-23-2024 End: 33-71-4504Gmij and Iron binding capacity panel - Serum or PlasmaIRON AND TIBC Lab Routine 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 Expected: 04/23/2024 (Approximate), Expires: 10/22/2024[facility] Work Phone: Comment on above:Expected: 04/23/2024 (Approximate), Expires: 10/22/2024Start: 04-23-2024 End: 19-24-5829Yxqvajd encounter ryalrylzh69/17/2024 8:15 AM EDT Appointment Radiology Pet CT [address] [place] [address] CT CHEST AND NECKRadiology Pet CTComment on above:CT CHEST AND NECKStart: 04-21-2024 End: 76-56-9403Bwojrtr encounter qjzteijss69/15/2024 9:00 AM EDT Office Visit [facility] [address] [facility] [address] [place] [address] Serene Morales MD [address] [facility] [address] [place] [address] NOMS CI ENTStart: 03-24-2024 End: 53-81-2118Wgmsrwp encounter procedureNOMS CI ENTComment on above:Arrived Start: 67-14-2515Igywp-19 Vaccine ( season)Covid-19 Vaccine ( season)[facility]: 25-19-3664Fcuny-19 Vaccine ()Covid-19 Vaccine ()[facility]: 03-08-2024 Influenza vaccinationLima City Hospitaltart: 48-28-0314HXLIP CREATININESERUM CREATININELima City Hospitaltart: 21-94-5506Hnfkd screening for proteinDiabetes: Urine Protein ScreeningWright Memorial HospitalStart: 13-29-5209XPUDX CREATININESERUM CREATININELima City Hospitaltart: 11-06-2023 End: 74-53-1576Gwmxshkafvl [Units/volume] in Serum or PlasmaTSH BLD Lab Routine Other specified disorders of thyroid Expected: 11/06/2023 (Approximate), Expires : 02/05/2024[facility] Work Phone: Comment on above:Expected: 11/06/2023 (Approximate), Expires: 02/05/2024Start: 11-06-2023 End: 87-10-1910Rnsgdhqsw (T4) free [Mass/volume] in Serum or PlasmaT4 FREE/FREE THYROX Lab Routine Other specified disorders of thyroid Expected: 11/06/2023 (Approximate), Expires: 02/05/2024[facility] Work Phone: Comment on above:Expected: 11/06/2023 (Approximate), Expires: 02/05/2024Start: 11-06-2023 End: 80-61-4740Klqjvvocpinvkrqd (T3) [Mass/volume] in Serum or PlasmaT3 BLD Lab Routine Other specified disorders of thyroid Expected: 11/06/2023 (Approximate), Expires: 02/05/2024[facility] Work Phone: Comment on above:Expected: 11/06/2023 (Approximate), Expires: 02/05/2024Start: 70-99-8751HLGDTSUBWB/HEMATOCRITHEMOGLOBIN/HEMATOCRIT [facility]: 42-55-2141ZUTVI CREATININESERUM CREATININELima City Hospitaltart: 32-34-2779Bzkntdp Directive DiscussionAdvance Directive Discussion [facility]: 07-54-0798Kkhpercics Health ScreeningBehavioral Health ScreeningLima City Hospitaltart: 06-19-2023 End: 29-03-4814FTS W Auto Differential panel - BloodCBC + DIFF Lab Routine 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) Mass of right lung Expected: 06/19/2023 (A pproximate), Expires: 03/20/2024[facility] Work Phone: Comment on above:Expected: 06/19/2023 (Approximate), Expires: 03/20/2024Start: 06-19-2023 End: 63-54-3203Tufgysivmzeli metabolic 2000 panel - Serum or PlasmaCOMP METABOLIC PANEL Lab Routine 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) Mass of right lung Expected: 06/19/2023 (Approximate), Expires: 03/20/2024[facility] Work Phone: Comment on above:Expected: 06/19/2023 (Approximate), Expires: 03/20/2024Start: 06-19-2023 End: 33-18-5833DG CHEST W IVCONCT CHEST W IVCON Radiology Routine 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) Mass of right lung Expected: 06/19/2023 (Approximate), Expires: 04/18/2024[facility] Work Phone: Comment on above:Expected: 06/19/2023 (Approximate), Expires: 04/18/2024Start: 03-13-2023 End: 99-70-6113CB CHEST W IVCONCT CHEST W IVCON Radiology Routine Lung nodules Expected: 03/13/2023 (Approximate), Expires: 03/07/2024[facility] Work Phone: Comment on above:Expected: 03/13/2023 (Approximate), Expires: 03/07/2024Start: 84-00-4355Utkqg-19 Vaccine ()Covid- 19 Vaccine ()[facility]: 51-91-1753Ukptevtqd vaccinationLima City Hospitaltart: 02-06-2023 End: 10-62-1999UHTZWXS/CREAT RATIO RND URMer[facility] Work Phone: Comment on above:Expected: 02/06/2023, Expires: 04/08/2023Start: 02-06-2023 End: 90-36-8057Iqaeliosyk [Mass/volume] in Urine collected for unspecified durationMercy Memorial Hospital Work Phone: Comtaho on above:Expected: 02/06/2023, Expires: 04/08/2023Start: 02-06-2023 End: 89-57-5297Qtcquyczzx A1c in BloodMercy Memorial Hospital Work Phone: Comment on above:Expected: 02/06/2023, Expires: 04/08/2023Start: 02-06-2023 End: 26-79-6546Puclz 1996 panel - Serum or PlasmaMercy Memorial Hospital Work Phone: Comffky on above:Expected: 02/06/2023, Expires: 04/08/2023Start: 01-30-2023 End: 14-15-0483DJI W Auto Differential panel - BloodCBC + DIFF Lab Routine Cancer of the base of tongue (HCC) Chemotherapy-induced neutropenia (HCC) Exp ected: 01/30/2023 (Approximate), Expires: 11/08/2023[facility] Work Phone: Comment on above:Expected: 01/30/2023 (Approximate), Expires: 11/08/2023Start: 01-30-2023 End: 22-43-0283Qrbbxjvvtnxaf metabolic 2000 panel - Serum or PlasmaCOMP METABOLIC PANEL Lab Routine Cancer of the base of tongue (HCC) Chemotherapy- induced neutropenia (HCC) Expected: 01/30/2023 (Approximate), Expires: 11/08/2023[facility] Work Phone: Comment on above:Expected: 01/30/2023 (Approximate), Expires: 11/08/2023Start: 01-28-2023 End: 30-84-9163KK PET/CT SKULL-THIGH SUBSEQUENTNM PET/CT SKULL-THIGH SUBSEQUENT Radiology Routine Cancer of the base of tongue (HCC) Expected: 01/28/2023, Expires: 12/28/2023[facility] Work Phone: Comment on above:Expected: 01/28/2023, Expires: 12/28/2023Start: 11-08-2022 End: 17-45-5031BMV W Auto Differential panel - BloodCBC + DIFF Lab Routine Cancer of the base of tongue (HCC) Expected: 11/08/2022, Expires: 01/08/2023 [facility] Work Phone: Comment on above:Expected: 11/08/2022, Expires: 01/08/2023Start: 11-08-2022 End: 06-87-2456Dbheeyintiyel metabolic 2000 panel - Serum or PlasmaCOMP METABOLIC PANEL Lab Routine Cancer of the base of tongue (HCC) Expected: 11/08/2022, Expires: 01/08/2023[facility] Work Phone: Comment on above:Expected: 11/08/2022, Expires: 01/08/2023Start: 10-26-2022 End: 30-33-5279DIM W Auto Differential panel - BloodCBC + DIFF Lab Routine 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) Chemotherapy-induced neutropenia (HCC) Exp ected: 10/26/2022, Expires: 12/26/2022[facility] Work Phone: Comment on above:Expected: 10/26/2022, Expires: 12/26/2022Start: 10-26-2022 End: 92-90-5265Yfbadnzfafjga metabolic 2000 panel - Serum or PlasmaCOMP METABOLIC PANEL Lab Routine 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) Chemotherapy- induced neutropenia (HCC) Expected: 10/26/2022, Expires: 12/26/2022[facility] Work Phone: Comment on above:Expected: 10/26/2022, Expires: 12/26/2022Start: 50-84-7521DDIQVAH DIRECTIVE DISCUSSIONADVANCE DIRECTIVE DISCUSSIONLima City Hospitaltart: 14-01-3276SSOCHBSEUX ASSESSMENTDEPRESSION ASSESSMENTLima City Hospitaltart: 20-09-5499ZEHZQ-19 VACCINE (3 - Booster for Moderna series)COVID-19 VACCINE (3 - Booster for Moderna series)[facility] Start: 52-35-4649OWNMH-19 VACCINE (3 - Moderna risk series)COVID-19 VACCINE (3 - Moderna risk series)[facility]: 59-23-5512CHK Vaccine (1 - 1-dose 75+ series)RSV Vaccine (1 - 1-dose 75+ series)[facility]: 10-31-2008 Pneumococcal Vaccine: 65+ (1 of 1 - PCV)Pneumococcal Vaccine: 65+ (1 of 1 - PCV) [facility]: 41-65-2359ALETEFTSPZBX: 65+ (1 - PCV)PNEUMOCOCCAL: 65+ (1 - PCV)[facility]: 25-80-6165KPH Vaccine (1 - 1-dose 60+ series)RSV Vaccine (1 - 1-dose 60+ series)[facility]: 33-84-7842Wscphwxmkooj Vaccine: 50+ (1 of 1 - PCV)Pneumococcal Vaccine: 50+ (1 of 1 - PCV)[facility]: 24-77-1361JOZTGFGU VACCINE (1 of 2)SHINGRIX VACCINE (1 of 2) [facility]: 31-19-5005DJSQNMDM SCREENDIABETES SCREENCommunity Regional Medical Center Start: 92-82-0413Mkulbbslrmpw Vaccine: 65+ Years (1 of 2 - PCV)Pneumococcal Vaccine: 65+ Years (1 of 2 - PCV)[facility] HealthcareStart: 02-26-4974XGESBYLR VACCINE (1 of 2)SHINGRIX VACCINE (1 of 2)[facility]: 75-42-3259Jpjmz microalbumin profileCleClermont County Hospitaltart: 57-86-6568RHVXUE PCP TEAM CHRONIC DISEASE VISITANNUAL PCP TEAM CHRONIC DISEASE VISITLima City Hospitaltart: 70-64-4884Zugazam ScreeningAnxiety ScreeningLima City Hospitaltart: 10[birth year]31-1961 Depression ScreeningDepression ScreeningLima City Hospitaltart: 10[birth year]31-1963 HEPATITIS C SCREENINGHEPATITIS C SCREENINGLima City Hospitaltart: 10[birth year]31-1949 Pneumococcal Vaccine: 65+ (1 - PCV)Pneumococcal Vaccine: 65+ (1 - PCV)[facility]: 65-67-5250Slemhyjwkekt Vaccine: 65+ (1 of 2 - PCV)Pneumococcal Vaccine: 65+ (1 of 2 - PCV)[facility]: 40-40-6811Kqbzhpygmxzz Vaccine: 65+ Years (1 of 2 - PCV)Pneumococcal Vaccine: 65+ Years (1 of 2 - PCV) [facility] HealthcareStart: 88-58-4037RAHGQRBAKYMP: 65+ (1 - PCV)PNEUMOCOCCAL: 65+ (1 - PCV)[facility] End: 29-76-7325HLF W Auto Differential panel - BloodCBC + DIFF Lab Routine Cancer of base of tongue (HCC) Once per week for 10 Occurrences starting 03/2023 until 08/16/2023, 1 completedMer[facility] Hospital Work Phone: Comment on above:Once per week for 10 Occurrences starting 08/16/2022 until 08/16/2023, 1 completedCBC W Auto Differential panel - BloodCBC + DIFF Lab Routine Cancer of base of tongue (HCC) 10/08/2022 11:[facility] Work [facility]: End: 58-54-3112Xpemujgrldpiy metabolic 2000 panel - Serum or PlasmaCOMP METABOLIC PANEL Lab Routine Cancer of base of tongue (HCC) Once per week for 10 Occurrences starting 08/16/2022 until 08/16/2023, 1 completedMer[facility] Hospital Work Phone: Comment on above:Once per week for 10 Occurrences starting 08/16/2022 until 08/16/2023, 1 completedCT SIM PLANNING RADIATION ONCOLOGYCT SIM PLANNING RADIATION ONCOLOGY Radiology Routine Tongue cancer (HCC) [facility] Work [facility]: Comment on above:Ordered: 08/23/2022 End: 54-77-6706Vby imaging ct attenuation skull base mid-thighNM PET/CT SKULL- THIGH INITIAL Radiology Routine Tongue cancer (HCC) Head and neck cancer (HCC) 1 Occurrences starting 08/14/2022 until [facility] Work Phone: Comment on above:1 Occurrences starting 08/14/2022 until 4Prostate specific Ag [Mass/volume] in Serum or PlasmaPSA Lab Routine Prostate cancer screening Ordered: 08/31/2024[facility] [employer] Work Phone: Comnwdf on above:Ordered: [address] [place] [address] Immunizations Immunization DateImmunizationNotesCare MywedcqvRehhiiwm45-95-4553Njajzmvbb, High-dose Seasonal, Quadrivalent, Preservative FreeMannie Rodriguez STRIKE OFF MACHINE OPERATOR Work Phone: NOChristian HospitalPjmmvkrlyn75-61-3660siytwwlrd virus vaccine, unspecified formulationMason Johnson MD Work Phone: SensioLabsChristian HospitalDrssvelafm62-48-7990Tvjudldco, Seasonal, Quadrivalent, AdjuvantedDanidemi Johnson MD Work Phone: SensioLabsChristian HospitalChilgyilit22-69-6982cbucozzqd nasal, unspecified formulationf White HospitalDgwnnp00-92-4135dkzpwuoxm virus vaccine, unspecified formulationMichael NILL [facility] HospitalWhdxevrc29-57-4826Xnmowewqr, Seasonal, Quadrivalent, AdjuvantedDdaisy Johnson MD Work Phone: [facility] HospitalRbrruitfir18-62-4119euqxyfoic, seasonal, injectableMason Johnson MD Work Phone: [facility] HospitalQxhqbeillj33-04-8113Yaoxpajfs, Seasonal, Quadrivalent, AdjuvantJason Johnson MD Work Phone: [facility] HospitalKlhuvayoex28-45-7808RXFZ-KgL-3 (COVID-19) mRNA- 1273 vaccineMichael NILL [facility] HospitalFlnfeict88-34-3704DUZG-EcZ-5 (COVID-19) mRNA-1273 vaccineMichael NILL [facility] HospitalDofxzjwh40-60-1745wdwjdnyum, high dose seasonal, preservative-Genet Johnson MD Work Phone: [facility] HospitalZeiulmtbuq24-07-6903Xopdsswjx, injectable, Madin [place] Canine Kidney, preservative free, quadrivalentMason Johnson MD Work Phone: [facility] HospitalRlapiqlxgp36-05-5808ufpnyktlx, seasonal, injectable, preservative Genet Johnson MD Work Phone: [facility] HospitalIvdulsrvlq86-52-7763asape yxlqpdjnw-M1X6-34, preservative-free, injectableMason Johnson MD Work Phone: [facility] Payers DatePayer CategoryPayerPolicy ID2025Medicare (Managed Care) [id number]/MEDICAL GENERIC MEDICAL GENERIC [id number] 2022- Present [phone] [place] [address] [id number] Health [id number] 2013Medicare [id number] [id number] 1960 Private Health [id number] 2.16.840.1.870087.3.57[id number] 2.16840.1.491554.3.57[id number] 2.16840.1.041642.3.57[id number] 2.16840.1.864300.3.57[id number] 2.16.840.1.107552.3.57[id number] 2.16.840.1.077274.3.57[id number] 2.16.840.1.177657.3.579.2.32761-70-0138Fxqfekn6984559 2.16.840.1.870820.3.57[id number] 2.16840.1.905305.3.579.[id number] 2.16840.1.805327.3.57[id number] 2.16840.1.299658.3.57[id number] 2.840.1.469815.3.579.[id number] 2.16840.1.692405.3.57[id number] 2.16840.1.057661.3.579.2.449083-05-2883Gdccitc88442502 2.840.1.823006.3.579.[id number] 2..1.078482.3.57[id number] 2..1.857827.3.579.2.[id number] 2.840.1.174572.3.579.[id number] 2.840.1.234354.3.57[id number] 2..1.650468.3.57[id number] 2.0.1.490676.3.57[id number] 2.0.1.404145.3.579.2.[id number] 2.16840.1.730171.3.57[id number] 2.840.1.965951.3.579.2.461363-49-1787Ppancfy7123694 2..1.855698.3.579.2.372044-23-4211Zolnldq2844906 2..1.333956.3.579.2.484434-89-5783Anzhzpy7968765 2..1.969356.3.579.2.[id number] 2.0.1.203658.3.579.2.1259 Social History DateTypeDetailFacilityStart: 06-13-2022 End: 71-47-7644Woseknq smoking statusNever smoked tobacco (finding)[facility]vueStart: 76-30-7659Uovlkha smoking statusNeverGeneral Surgery BellevueStart: 02-06-2023 End: 36-52-2100Xbn [facility]igned At [facility]: 04-30-2013 End: 38-79-7039Xxarwvn use and exposureSmokeless tobacco non-userGilead ClinicStart: 08-14-2022 End: 72-84-6917Ommnnlj intakeCurrent drinker of alcohol (finding)[facility] ClinicStart: 97-95-2600Ymbbhwn Commentdaily 3 beersCthe [facility] of [facility] ClinicStart: 86-32-3813Tya Assigned At [facility] HospitalNot on fileGilead ClinicStart: 02-06-2023 End: 59-49-8142Fmzssvj of Social functionGilead ClinicStart: 44-61-0541Alf Assigned At [facility] ClinicWithin the last year, have you been afraid of your partner or ex-partner?NoNOMS HealthcareAre you now , , , , never or living with a partner? MarriedNOMS HealthcareHow often to you have a drink containing alcohol?4 or more times a weekNOMS HealthcareHow many standard drinks containing alcohol do you have on a typical day?3 or 4NOMS HealthcareHow often do you have 6 or more drinks on 1 occasion?NeverNOMS HealthcareHow hard is it for you to pay for the very basics like food, housing, medical care, and heatingVery hardNOIN HealthcareDo you feel stress - tense, restless, nervous, or anxious, or unable to sleep at night because yourmind is troubled all the time - these days [OSQ] Not at allNOIN Healthcare(I/We) worried whether (my/our) food would run out before (I/we) got money to buy more.Never trueNOIN HealthcareStart: 01-20-2023 Alcohol Commentcaffeine intake: 1-2 cups per dayASHLEY REGIONAL MEDICAL [facility]ENTER HealthcareNEGATED: Highlighted rowStart: NINFHistory of tobacco usePassive smokerCommunity Regional Medical Center Functional Status CswbXhkiiiqcqyJoqjwuUwyxlynh87-15-5998Ngeqfrg Health Questionnaire 2 item (PHQ- 2) [Reported][facility] HospitalAzzworatsl11-60-6356Znuuxcb Health Questionnaire 2 item (PHQ- 2) [Reported][facility] HospitalIoibhteabv40-03-7041Befsuohvwi StatusN/AGeneral Surgery Xrlbbakj72-51-3800Sgl you deaf, or do you have serious difficulty hearingNo 04/29/2014 11:20 AM Jasmyn HanPremier Health [facility] Hospital NorthTulwry39-29-1585Cxn you blind, or do you have serious difficulty seeing, even when wearing glassesNo 04/29/2014 11:20 AM Jasmyn HanPremier Health [facility] NorthHarngc11-12-8987Sz you have serious difficulty walking or climbing stairsNo 04/29/2014 11:20 AM Jasmyn Han [facility] CenterKqltqv42-84-7754Ze you have difficulty dressing or bathingNo 04/29/2014 11:20 AM Jasmyn HanPremier Health [facility] Hospital NorthIuzkwy61-93-5246Zqhilbu of a physical, mental, or emotional condition, do you have difficulty doing errands alone such as visiting a physician's office or shoppingNo 04/29/2014 11:20 AM Jasmyn HanPremier Health [facility] Mental Status TqhaPhuosxjiyzGfhfwnEzpshxri62-50-3093Ldpfcii of a physical, mental, or emotional condition, do you have serious difficulty concentrating, remembering, or making decisionsNo 04/29/2014 11:20 AM Jasmyn GarciaPremier Health [facility] Clinical Notes 04-28-2015 to 04-20-2025 Note Date & GhsiUnigGyoxsawb15-26-7603 History of Present illness Narrative* Serene Morales MD - 04/20/2025 8:00 AM EDT Subjective [...] GERD (gastroesophageal reflux disease) 01/15/2023 History of UT (myocardial infarction) 01/15/2023 HTN (hypertension) 01/15/2023 OJEDA [...] with colostomy COLONOSCOPY LARYNGOSCOPY 07/31/2022 with biopsy, Carmen [3] Allergies Allergen Reactions Statins GI intolerance [...] file prior to visit. documented in this [facility]10-13-2025 Telephone encounter Note* Telephone Encounter - Olive Brown - 04/19/2025 9:42 AM EDT SHAMIKA 04/14/25 L Hip OA Has thought about it and would like to move forward with DOM Next available spot Please call patient [facility] HospitalHfxmnijhum40-41-1535 Miscellaneous Notes* Telephone Encounter - Olive Brown - 04/19/2025 9:42 AM EDT SHAMIKA 04/14/25 L Hip OA Has thought about it and would like to move forward with DOM Next available spot Please call patient documented in this [facility]10-08-2025 History of Present illness Narrative* Jr. Mechelle Boyer, DO - 04/14/2025 1:15 PM EDT Images from the original note were not included. NAME: Manish Root : 1945 HISTORY OF PRESENT ILLNESS: NEW PT Manish Root is an 79 y.o. @ male. (NEW PT) (DR. JOHNSON REFERRAL) - (L) HIP DISCOMFORT SINCE ~10/06/24 (6 MONTHS) - NKI ; SEEN @PCP FOR MULTIPLE VISITS SINCE 10/12/24 (TX: CELEBREX, XRAY, MRI, MDP, TRAMADOL, LABS, PT REFERRAL) HGB A1C 12/09/24 - 7.1 XRAY (L) HIP TODAY, 04/14/25 IN EPIC XRAY (L) HIP 10/13/24 @[facility] (IN CHANGE) MRI (L) HIP 03/12/25 @[facility] (IN CHANGE) LABS (C-REACTIVE PROTEIN, SED RATE, URIC ACID, RHEUM PANEL / RAFAEL) 12/09/24 IN LABS MDP 12/09/24 NO CORTISONE INJ PT @[facility] - NO RELIEF NO PAIN MGMT PRESENTS AMBULATING WITH CANE - USING AT MOST TIMES. INTERMITTENT LATERAL DISCOMFORT - WORSE WITH SITTING TO STANDING. DENIES N/T. SOME STIFFNESS AFTER PROLONGED SITTING. OCCASIONAL SWELLING. DENIES WEAKNESS. LIMITED ROM WITH PIVOTING. UNABLE TO LIE ON (R) SIDE. OCCASIONALLY WAKING HS. DENIES LOCKING / POPPING / GIVING OUT. DENIES N/T. TRAMADOL - HAS NOT TAKEN. CELEBREX BID - UNSURE OF RELIEF. OCCASIONAL ICING - SOME RELIEF. JOINT RELIEF GEL. ADMITS INTERMITTENT (L) KNEE DISCOMFORT. ASA 81MG DAILY PAST MEDICAL HISTORY: Past Medical History: Diagnosis Date CAD (coronary [...] 2 diabetes mellitus (HCC) Vitamin D deficiency PAST SURGICAL HISTORY: Past Surgical History: Procedure Laterality Date CARDIAC CATHETERIZATION 2001 with stent placement CATARACT EXTRACTION COLECTOMY 02/2000 sigmoid colectomy with colostomy COLONOSCOPY LARYNGOSCOPY 07/31/2022 with biopsyCarmen SOCIAL HISTORY: Social History Occupational History Not on file Tobacco Use Smoking status: Never Passive exposure: Never Smokeless tobacco: Never Vaping Use Vaping status: Never Used Substance and Sexual Activity Alcohol use: Yes Alcohol/week: 7.0 standard drinks of alcohol Types: 3 Cans of beer, 4 Standard drinks or equivalent per week Comment: caffeine intake: 1-2 cups per day Drug use: Never Sexual activity: Defer ALLERGIES: Allergies Allergen Reactions Statins GI intolerance HOME MEDICATIONS: Current Outpatient Medications Medication Instructions aspirin 81 mg, Every 24 hours celecoxib (CELEBREX) 200 mg, Oral, 2 times daily cholecalciferol (VITAMIN D-3) 25 mcg, Every 24 hours fenofibrate micronized (LOFIBRA) 134 mg, Oral, Daily latanoprost (Xalatan) 0.005 % ophthalmic solution 1 drop, Daily metFORMIN (GLUCOPHAGE) 500 mg, Oral, Daily methylPREDNISolone (Medrol Dospak) 4 MG tablets Follow schedule on package instructions metoprolol succinate XL (TOPROL-XL) 25 mg, Oral, Daily, Do not crush or chew. traMADol (ULTRAM) 100 mg, Oral, Every 8 hours PRN REVIEW OF SYSTEMS: Review of Systems Vitals: There is no height or weight on file to calculate BMI. Tobacco Use: Low Risk (04/14/2025) Patient History Smoking Tobacco Use: Never Smokeless [...] or 4 Frequency of Binge Drinking: Never PHYSICAL EXAM: Hip Musculoskeletal Exam Gait Limp: left Inspection Leg length disparity: no discrepancy Left Erythema: none Ecchymosis: none Edema: none Deformity: none Palpation Left Increased warmth: none Tenderness: present Greater trochanteric region pain: mild Pubic rami pain: mild Lower lumbar region pain: mild Range of Motion Left Left hip range [...] and oriented x3 Skin: intact Lymphadenopathy: none IMAGING: XR hip left 2 or 3 views Imaging Result: Multiple views of left hip showed severe degenerative joint disease with near complete obliterationof the joint space articulation between the femoral head and acetabulum. There is flattening of thearticular surfaces to both femoral and acetabular surfaces. There was marginal osteophytic formation noted. The both femoral and acetabular joint surfaces. There was no acute bony process including but not limited to, fracture and/or dislocation. Impression: Moderate to severe degenerative joint disease, left hip Procedures Orders Placed This Encounter Procedures XR hip left 2 or 3 views Reason for exam:: Pain ASSESSMENT: ICD-10-CM 1. Left hip pain M25.552 XR hip left 2 or 3 views methylPREDNISolone (Medrol Dospak) 4 MG tablets 2. 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 Primary osteoarthritis of left hip M16.12 Ambulatory referral to Orthopaedic Surgery PLAN: We have discussed his case with him at length including his restrictions home exercise program, physical exam, symptoms and x-rays today. He refuses a total hip arthroplasty at this point feeling that is functioning quite well. We have recommended a second Medrol Dosepak he had worn approximately 3months ago with his family physician. We'll see him back in 2 months to reassess. Questions answered in laymen terms at the bedside. The diagnosis, home exercise plan and any ongoing restrictions/ recommendations reviewed. If unable to be reached in office, I recommend evaluation at nearest Emergency Room if any symptoms worsened or new symptoms develop for requiring urgent evaluation. documented in this encounterWright Memorial HospitalNgxamjanhd81-55-1468 History of Present illness Narrative* Mason Johnson MD - 03/26/2025 11:00 AM EDT HPI Results Additional comments: Left hip mri Last edited by Niki Alvarez LPN on 03/26/2025 11:04 AM. Subjective Patient ID: Manish Root is a 79 y.o. male who presents for Hip Pain, Results (Left hip mri), and URI. Left hip pain continuing worse when changing positions from sitting to standing Denies pain radiating down leg, denies numbness or tinging in leg Finished PT sessions Completed MRI as ordered Pt states he has a cold x 3 days cough, nasal drainage Denies fever,headache,sinus pressure Hip Pain Current Outpatient Medications on File [...] colectomy with colostomy COLONOSCOPY LARYNGOSCOPY 07/31/2022 with biopsyCarmen Visit Vitals BP 132/74 Pulse 64 Ht 5' 7 Wt 200 lb SpO2 97% BMI 31.32 kg/m Smoking Status Never BSA [...] sounds. Musculoskeletal: General: No swelling. Left hip: Decreased range of motion. Left knee: Swelling and effusion present. Tenderness present over the LCL. Right lower leg: No edema. Left lower leg: No edema. Neurological: Mental Status: He is alert. Psychiatric: Mood and Affect: Mood normal. Thought Content: Thought content normal. Judgment: Judgment normal. 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 documented in this encounterWright Memorial [id number] History of Present illness Narrative* Serene Morales MD - 01/19/2025 8:00 AM EDT Subjective Patient ID: Manish [...] GERD (gastroesophageal reflux disease) 01/15/2023 History of UT (myocardial infarction) 01/15/2023 HTN (hypertension) 01/15/2023 OJEDA [...] with colostomy COLONOSCOPY LARYNGOSCOPY 07/31/2022 with biopsy, [facility] Allergies Allergen Reactions Statins GI intolerance Current [...] Quarterly appts till 07/2026 documented in this encounterWright Memorial [id number] History of Present illness Narrative* Mason Johnson MD - 01/06/2025 9:00 AM EDT Images from the original [...] with colostomy COLONOSCOPY LARYNGOSCOPY 07/31/2022 with biopsy, [facility] Visit Vitals Ht 5' 7 BMI 31.48 [...] No follow-ups on file. documented in this encounterWright Memorial HospitalRgodmegbqx05-04-4699 History of Present illness Narrative* Mason Johnson MD - 12/28/2024 9:30 AM EDT Images from the original note were not included. HPI Results Additional comments: Knee xray, lab results Last edited by Niki Alvarez LPN on 12/28/2024 9:34 AM. Subjective Patient ID: Manish Root is a 79 y.o. male who presents for Results (Knee xray, lab results) andJoint Pain. Follow up left hip and left [...] indicated. For additional information, please refer to http://education.[employer]/faq/DZJ281 (This link is being provided for informational/ [...] polar distribution in the cytoplasm (e.g., anti-giantin, [id number]). Pattern is rare in Sjogren's syndrome, systemic lupus erythematosus (SLE), rheumatoid arthritis, mixed connective disease, granulomatosis with polyangiitis (GPA), idiopathic cerebellar ataxia, paraneoplastic cerebellar degeneration, and viral infections. AC-22: Polar/Golgi-like International Consensus on RAFAEL Patterns (https://doi.org/10.1515/yliz-3204-3100) Clinisync Result Encounter on 12/02/2024 Component Date [...] 01/04/2025) for Test/Lab Review. documented in this encounterWright Memorial [id number] History of Present illness Narrative* Mason Johnson MD - 12/09/2024 10:15 AM EDT HPI Follow-up Additional comments: Knee and hip pain--left hip pt states he is not sure its OA as discussed wouldlike to discuss Last edited by iNki Alvarez LPN on 12/09/2024 10:42 AM. Subjective Patient ID: Manish Root is a 79 y.o. male who presents for Diabetes and Follow-up (Knee and hippain--left hip pt states he is not sure its OA as discussed would like to discuss ). Diabetes Mellitus Patient presents for follow up of diabetes. Current symptoms include: none. Patient denies foot ulcerations, nausea, paresthesia of the feet, polydipsia, polyuria, and visual disturbances. Evaluationto date has included: fasting blood sugar, fasting [...] tablet (500 mg) by mouth Daily 90 tablet1 No current facility-administered medications on file prior [...] Glucose intolerance 01/15/2023 HCVD (hypertensive cardiovascular disease) ([facility]/HCC) History of colonic polyps 01/15/2023 History of [...] disease, without long-term current use of insulin ([facility]) - FSBS log shows good control, most recent A1C is at or near goal. Continue current treatment plan as previously outlined without changes. Follow up in about 2 weeks (around 12/23/2024) for As Previously Scheduled, Test/Lab Review. documented in this encounterWright Memorial [id number] NoteHNO ID: [id number] Author: Yordan FELIZ MD Service: ? Author [...] Lymph 1.00 - 4.00 k/uL 0.48 (L) [place]% % 10.4 Abs [place] <0.87 k/uL 0.32 Eosin% % 1.6 Abs [...] flush line and de-a (more content not included)...[facility]04-30-2025 History of Present illness Narrative* Yordan Feliz MD - 11/04/2024 11:47 AM EDT Radiation Oncology - Follow Up [...] Lymph 1.00 - 4.00 k/uL 0.48 (L) [place]% % 10.4 Abs [place] <0.87 k/uL 0.32 Eosin% % 1.6 Abs [...] Once exam is complete flush line and de-accessaccording to line specific nursing protocol in the [...] Feliz MD cc: Dr. Shaikh Vidal Estrada [address] [place] [address] documented in this encounterCommunity [facility] Center04-30-2025 History of Present illness Narrative* John England MD - 11/04/2024 11:20 AM EDT Images from the original note were not included. NAME: Manish Root [facility] NO.: [id number] DATE OF SERVICE: November 04, 2024 (Jacquelyn) [...] CT chest @ 6 weeks March 2023 showedinvolution of the lesion and now only ground [...] an adjacent subcentimeter nodule which is also decreasedin density. Finally, there is a 3 mm [...] Ca Stage 3 - 2/5 LN + [place] regimen on protocol Updated Visit, November 04, 2024: Manish is doing well but his Jahaira is still dealing with an infection of left shoulder. He'snow doing all the cooking. He is having left hip pain c/w arthritis. Reviewed scans and they are negative for disease. [place] go [place] to visit for the [place] as long as his is better. He's originally from [place]. Updated Visit, May 06, 2024: Manish returns [...] for cisplatin. Initial Visit, August 16, 2022: Mnaish Root presents today Hematology and Oncology evaluation. [...] Resp 16 Ht 5' 5.709 (1.67m) Wt 202lb 2.6 oz (91.7kg) SpO2 97% BMI 32.92 [...] a central line or IVAD, may access foradministration according to line specific nursing protocol. Once [...] Once exam is complete flush line and de-accessaccording to line specific nursing protocol in the [...] which included preparing to see the patient, [id number]-eece patient care, completing clinical documentation, performing a medically appropriate examination, counseling and educating the patient/family/caregiver, ordering medications, tests, or p rocedures, independently interpreting results (not separately reported), communicating results to the patient/family/caregiver, and care coordination (not separately reported). John England MD, CPE Hematology and Oncology Services Provided at: [place], [place] CC: Dr. Yordan Morales documented in this encounterCleveland [id number] NoteHNO ID: [id number] Author: JOHN ENGLAND MD Service: ? Author Type: Physician Type: Progress Notes Filed: 11/04/2024 19:00 Note Text: NAME: Manish Root [facility] NO.: [id number] DATE OF SERVICE: November 04, 2024 (angely) Some elements in this clinic note [...] Ca Stage 3 - 2/5 LN + [place] regimen on protocol Updated Visit, November 04, [...] as his is better. He's originally from [place]. Updated Visit, May 06, 2024: Manish returns with his Jahaira (she has a pinched nerve that has locked up her shoulder) His scans are negative. He's doing very well. Updated Visit, October 23, 2023: Manish returns today with Jahaira. We discussed he recent CT scans - both appear stable. (more content not included)...[facility]04-30-2025 Instructions* Patient Instructions* John England MD - 11/04/2024 11:[address] Neck and Chest in 6 months Labs same day RTC 1 week after to review documented in this encounterCommunity Regional Medical Center04-23-2025 NoteHNO ID: [id number] Author: RAFAEL ZURITA RT(R) Service: ? Author [...] PATIENT PRESENTS WITH AN IMPLANTABLE OR ATTACHED INTERNATIONAL SALES MANAGER: No RADIOLOGY DEPARTMENT: CT; Exam(s) Completed: Chest and Neck PERIPHERAL IV DATA: Site assessment: Clean,Dry and Intact, Site disposition Discontinued SIGNED BY: RT Perlita(R) October 28, 2024 9:41 [facility]04-23-2025 NoteHNO ID: [id number] Author: GISELA VILLAVICENCIO RN Service: ? Author [...] Root DATE: October 28, 2024 TIME: 10:49 [facility]04-21-2025 History of Present illness Narrative* Mason Johnson MD - 10/26/2024 10:45 AM EDT Images from the original note [...] with colostomy COLONOSCOPY LARYNGOSCOPY 07/31/2022 with biopsy, [facility] Visit Vitals BP 130/74 Pulse 52 Ht [...] Routine F/U, DM- A1C. documented in this encounterWright Memorial [id number] History of Present illness Narrative* Serene Morales MD - 10/20/2024 8:00 AM EDT Subjective Patient ID: Manish Root is a 78 y.o. male who presents for Cancer (3 month check ) Family History Adopted: Yes Problem Relation Name Age of Onset No Known Problems Mother No Known Problems Father Active Ambulatory Problems Diagnosis Date Noted Cancer of base of tongue ([facility]) 12/15/2022 Metastatic cancer to cervical lymph nodes ([facility]) 12/15/2022 Arteriosclerotic cardiovascular disease ([facility]) 01/15/2023 Colon cancer ([facility]) 11/19/2012 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, without long-term current use of insulin ([facility]) 01/15/2023 GERD (gastroesophageal reflux disease) 01/15/2023 History of UT (myocardial infarction) ([facility]) 01/15/2023 HTN (hypertension) ([facility]) 01/15/2023 OJEDA (nonalcoholic steatohepatitis) 01/15/2023 Stage 2 chronic kidney disease 2022 Facial lesion 01/21/2023 CAD (coronary artery disease) ([facility]) 06/10/2023 Chemotherapy-induced neutropenia ([facility]) 10/19/2022 Diastasis recti 01/15/2023 Encounter for Medicare annual wellness exam 06/10/2023 Neck muscle spasm 11/20/2023 Throat cancer ([facility]) 12/04/2023 Hyperlipidemia ([facility]) 12/16/2023 Separation of right acromioclavicular joint 10/16/2024 [...] Quarterly appts till 07/2026 documented in this encounterWright Memorial HospitalNocgeqoesb07-71-3729 History of Present illness Narrative* Mason Johnson MD - 10/12/2024 3:45 PM EDT Images from the original note [...] 1 (one) time each day atthe same time. fenofibrate micronized (Lofibra) 134 MG [...] mg) by mouth in the morning and 1tablet (4 mg) before bedtime. 60 tablet 3 [...] History: Diagnosis Date CAD (coronary artery disease) ([facility]) Chemotherapy-induced neutropenia ([facility]) 10/19/2022 Colon cancer ([facility]/HCC) Diabetes ([facility]) Diastasis recti 01/15/2023 Disorder of prostate 01/15/2023 GERD (gastroesophageal reflux disease) Glucose intolerance 01/15/2023 HCVD (hypertensive cardiovascular disease) ([facility]) History of colonic polyps 01/15/2023 History of malignant neoplasm of colon 01/15/2023 Hx of myocardial infarction ([facility]/HCC) Hyperlipidemia ([facility]/HCC) Hypertension ([facility]/HCC) Inguinal hernia, right Overweight 12/15/2022 Raynaud's disease Sinusitis Throat cancer ([facility]/HCC) Thyromegaly ([facility]/HCC) Type 2 diabetes mellitus Vitamin D deficiency Past Surgical History: Procedure Laterality Date CARDIAC CATHETERIZATION 2001 with stent placement CATARACT EXTRACTION COLECTOMY 02/2000 sigmoid colectomy with colostomy COLONOSCOPY LARYNGOSCOPY 07/31/2022 with biopsy, [facility] Visit Vitals BP 134/70 Pulse 56 Ht [...] med changes, Test/Lab Review. documented in this encounterWright Memorial [id number] History of Present illness Narrative* Barry Stevens, LIDDING MACHINE OPERATOR-ARTIST AND REPERTOIRE MANAGER - 09/17/2024 10:35 AM EDT Lesions: Location: scalp, right forearm Duration: months [...] lesions that fail to resolve should be re- evaluated. Cryotherapy performed today; see procedure note. Educational literature provided. Diagnosis: Actinic keratosis Indication: Precancerous Location: see skin exam Consent: Verbal consent was obtained and risks were discussed, including, but not limited to risks of scarring, darker or garment sewer hand pigmentary changes, recurrence, incomplete removal and infection. [...] 3. Seborrheic keratosis, inflamed Mid Parietal Scalp [place] and brown stuck on verrucous scaly papule [...] office if abnormal redness or tenderness develops atthe treatment site. Cryotherapy today, see procedure note. Diagnosis: Inflamed seborrheic keratosis Indication: Inflamed Consent: Verbal consent was obtained and risks were discussed, including, but not limited to risks of scarring, darker or garment sewer hand pigmentary changes, recurrence, incomplete removal and infection. [...] Next Visit: as scheduled documented in this encounterWright Memorial [id number] History of Present illness Narrative* Mason Johnson MD - 08/31/2024 9:30 AM EST Images from the original note [...] 1 (one) time each day atthe same time. fenofibrate micronized (Lofibra) 134 MG [...] Do you have a medical power of bankruptcy attorney?: No Objective : BP 136/74 Pulse [...] a living will and durable power of bankruptcy attorney for healthcare. We discussed telling muro [...] Services Required Referred to Provider: Barry Stevens APRN-ARTIST AND REPERTOIRE MANAGER Requested Specialty: Dermatology Number of Visits Requested: 1 POCT Glycated hemoglobin, total Electronically signed by Mason Johnson MD on August 31, 2024 documented in this encounterWright Memorial HospitalPevidpwucm81-15-5523 History of Present illness Narrative* Serene Morales MD - 07/21/2024 2:20 PM EST Subjective Patient ID: Manish Root is a [...] GERD (gastroesophageal reflux disease) 01/15/2023 History of UT (myocardial infarction) (CMS/HCC) 01/15/2023 HTN (hypertension) (CMS/HCC) 01/15/2023 OJEDA (nonalcoholic steatohepatitis) 01/15/2023 Stage 2 chronic kidney disease 2022 Facial lesion 01/21/2023 CAD (coronary artery disease) (CMS/HCC) 06/10/2023 Chemotherapy-induced neutropenia (CMS/HCC) 10/19/2022 Type 2 diabetes mellitus without complications ([facility]/HCC) 06/10/2023 Diastasis recti 01/15/2023 Encounter for Medicare annual wellness exam 06/10/2023 Neck muscle spasm 11/20/2023 Throat cancer (CMS/HCC) 12/04/2023 Hyperlipidemia ([facility]/HCC) 12/16/2023 Resolved Ambulatory Problems Diagnosis Date Noted Overweight 12/15/2022 Acute pain of right shoulder 12/15/2022 Basal cell carcinoma (BCC) of face 12/15/2022 Chemotherapy-induced neutropenia ([facility]/HCC) 10/19/2022 Diastasis recti 01/15/2023 Disorder of prostate [...] colectomy with colostomy COLONOSCOPY LARYNGOSCOPY 07/31/2022 with biopsyCarmen Allergies Allergen Reactions Statins GI intolerance Current Outpatient Medications on File Prior to Visit Medication Sig Dispense Refill aspirin 81 MG EC tablet Take 81 mg by mouth 1 (one) time each day at the same time. cholecalciferol (Vitamin D-3) 25 MCG (1000 UT) tablet Take 25 mcg by mouth 1 (one) time each day atthe same time. fenofibrate micronized (Lofibra) 134 MG [...] today. Start quarterly appts documented in this [facility]01-08-2025 History of Present illness Narrative* Mannie Rdoriguez NP - 07/15/2024 3:45 PM EST documented in this [facility]12-10-2024 History of Present illness Narrative* Serene Morales MD - 06/16/2024 9:00 AM EST Subjective Patient ID: Manish Root is a [...] GERD (gastroesophageal reflux disease) 01/15/2023 History of UT (myocardial infarction) (CMS/HCC) 01/15/2023 HTN (hypertension) (CMS/HCC) [...] 1 (one) time each day atthe same time. fenofibrate micronized (Lofibra) 134 MG [...] quarterly appts next visit documented in this encounterWright Memorial [id number] History of Present illness Narrative* Barry Stevens, LIDDING MACHINE OPERATOR-ARTIST AND REPERTOIRE MANAGER - 05/26/2024 10:20 AM EST Lesions: Location: scalp and left ear Duration: [...] Actinic keratosis (6) Left Eyebrow, Left Superior [place], Left Zygomatic Area, Right Forehead, Right Scaphoid Fossa, RightSuperior [place] Erythematous scaly papules Patient was counseled regarding these sun-induced growths that can develop into squamous cell carcinoma if left untreated. Discussed treatment with cryotherapy. It was emphasized that any treated lesions that fail to resolve should be re- evaluated. Cryotherapy performed today; see procedure note Diagnosis: Actinic keratosis Indication: Precancerous Location: see skin exam Consent: Verbal consent was obtained and risks were discussed, including, but not limited to risks of scarring, darker or garment sewer hand pigmentary changes, recurrence, incomplete removal and infection. [...] skin lesion - Left Eyebrow, Left Superior [place], Left Zygomatic Area, Right Forehead, Right Scaphoid Fossa, Right Superior [place] Next Visit: 1 year, skin check documented in this encounterWright Memorial [id number] History of Present illness Narrative* Serene Morales MD - 05/19/2024 9:00 AM EST Subjective Patient ID: Manish Root is a [...] DM II (diabetes mellitus, type II), controlled ([facility]) 01/15/2023 GERD (gastroesophageal reflux disease) 01/15/2023 History of UT (myocardial infarction) ([facility]) 01/15/2023 HTN (hypertension) ([facility]) 01/15/2023 OJEDA (nonalcoholic steatohepatitis) 01/15/2023 Stage 2 chronic kidney disease 2022 Facial lesion 01/21/2023 CAD (coronary artery disease) ([facility]) 06/10/2023 Chemotherapy-induced neutropenia ([facility]) 10/19/2022 Type 2 diabetes mellitus without complications ([facility]) 06/10/2023 Diastasis recti 01/15/2023 Encounter for Medicare annual wellness exam 06/10/2023 Neck muscle spasm 11/20/2023 Throat cancer ([facility]) 12/04/2023 Hyperlipidemia ([facility]) 12/16/2023 Resolved Ambulatory Problems Diagnosis Date Noted Overweight 12/15/2022 Acute pain of right shoulder 12/15/2022 Basal cell carcinoma (BCC) of face 12/15/2022 Chemotherapy-induced neutropenia ([facility]) 10/19/2022 Diastasis recti 01/15/2023 Disorder of prostate 01/15/2023 Glucose intolerance 01/15/2023 History of colonic polyps 01/15/2023 History of malignant neoplasm of colon 01/15/2023 Hypercholesterolemia ([facility]) 01/15/2023 Raynaud's syndrome 01/15/2023 Vitamin D deficiency 01/15/2023 Past Medical History: Diagnosis Date Diabetes ([facility]) HCVD (hypertensive cardiovascular disease) ([facility]) Hx of myocardial infarction ([facility]) Hypertension ([facility]) Inguinal hernia, right Raynaud's disease Sinusitis Thyromegaly ([facility]) Type 2 diabetes mellitus ([facility]) Past Surgical History: Procedure Laterality Date CARDIAC [...] 1 (one) time each day atthe same time. fenofibrate micronized (Lofibra) 134 MG [...] today. Monthly till July documented in this encounterWright Memorial [id number] Instructions* Patient Instructions* Jhon England MD - 05/06/2024 3:[address] Neck and Chest in 6 months Labs same day RTC 1 week after to review documented in this encounterCommunity Regional Medical Center10-30-2024 NoteHNO ID: [id number] Author: JOHN ENGLAND MD Service: ? Author Type: Physician Type: Progress Notes Filed: 05/09/2024 10:42 Note Text: NAME: Manish Root [facility] NO.: [id number] DATE OF SERVICE: May 06, 2024 ([facility]) Some elements in this clinic note that are critical to medical decision making have been carefully reviewed and included from a prior clinic note dated: October 23, 2023 (juliana) Referring Provider: Dr. Татьяна Feliz Additional [...] Ca Stage 3 - 2/5 LN + [place] regimen on protocol Updated Visit, May 06, [...] showing a new consolidatio (more content not included)...[facility]10-30-2024 History of Present illness Narrative* John England MD - 05/06/2024 3:04 PM EDT Images from the original note were not included. NAME: Dk Manish [facility] NO.: [id number] DATE OF SERVICE: May 06, 2024 (Jacquelyn) Some elements in this clinic note that are critical to medical decision making have been carefully reviewed and included from a prior clinic note dated: October 23, 2023 (Jacquelyn) Referring Provider: Dr. Татьяна Feliz Additional Clinicians involved in Manishsybil Root's care: Serene Morales DIAGNOSIS: Base of [...] CT chest @ 6 weeks March 2023 showedinvolution of the lesion and now only ground [...] an adjacent subcentimeter nodule which is also decreasedin density. Finally, there is a 3 mm [...] Ca Stage 3 - 2/5 LN + [place] regimen on protocol Updated Visit, May 06, [...] Resp 18 Ht 5' 5.709 (1.67m) Wt 191lb 2.2 oz (86.7kg) SpO2 98% BMI 31.12 [...] which included preparing to see the patient, [id number]-[id number] patient care, completing clinical documentation, performing a medically appropriate examination, counseling and educating the patient/family/caregiver, ordering medications, tests, or p rocedures, independently interpreting results (not separately reported), communicating results to the patient/family/caregiver, and care coordination (not separately reported). John England MD, CPE Hematology and Oncology Services Provided at: [place], [place] CC: Dr. Yordan Morales documented in this encounterCommunity Regional Medical Center10-30-2024 History of Present illness Narrative* Yordan Feliz MD - 05/06/2024 3:00 PM EDT Radiation Oncology - Follow Up Note [...] Lymph 1.00 - 4.00 k/uL 0.48 (L) [place]% % 10.4 Abs [place] <0.87 k/uL 0.32 Eosin% % 1.6 Abs [...] Feliz MD cc: Dr. Shaikh Vidal Estrada [address] [place] [address] documented in this encounterCommunity Regional Medical Center10-30-2024 NoteHNO ID: [id number] Author: Yordan FELIZ MD Service: ? Author [...] Lymph 1.00 - 4.00 k/uL 0.48 (L) [place]% % 10.4 Abs [place] <0.87 k/uL 0.32 Eosin% % 1.6 Abs [...] joint pain o (more content not included)... [facility]10-24-2024 History of Present illness Narrative* Mason Johnson MD - 04/30/2024 9:30 AM EDT Images from the original note were not included. HPI Establish Care Additional comments: Previous pcp dr vidal [facility] twice yearly [facility] Last edited by Niki Alvarez LPN on 04/30/2024 9:03 AM. Subjective Patient ID: Manish Root is a 78 y.o. male who presents for Establish Care (Previous pcp dr drake/[facility] twice yearly [facility]), Diabetes, and Hypertension. Diabetes Mellitus Patient presents for follow up of diabetes. Current symptoms include: none. Patient denies foot ulcerations, nausea, paresthesia of the feet, polydipsia, polyuria, and visual disturbances. Evaluationto date has included: fasting blood sugar, fasting [...] 1 (one) time each day atthe same time. fenofibrate micronized (Lofibra) 134 MG [...] 74 - 99 mg/dL Final Comment: The [place] [employer] (ADA) provides guidance for cutoff values for fasting glucose and random glucose. The ADA defines fasting as no caloric intake for at least 8 hours. Fastingplasma glucose results between 100 to 125 mg/dL [...] Standards of Medical Care in Diabetes 2016, [place] [employer]. Diabetes Care. 2016.39(Suppl 1). [facility] [...] the eGFRmay not accurately reflect actual GFR. Assessment/Plan Diagnoses and all orders for this visit: Primary hypertension ([facility]) - Controlled. Controlled type 2 diabetes mellitus without complication, without long-term current use of insulin ([facility]) - POCT Glycated hemoglobin, total today - 7.4%. No changes in therapy. 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 ([facility]) - The patient is experiencing no symptoms from this condition currently, it is considered medicallycontrolled and no change in current therapies are planned. Follow up in about 4 months (around 08/31/2024) for Routine F/U. documented in this encounterWright Memorial [id number] History of Present illness Narrative* Rafael Zurita RT(R) - 04/23/2024 8:15 AM EDT Radiology Service Progress Note PATIENT [...] PATIENT PRESENTS WITH AN IMPLANTABLE OR ATTACHED INTERNATIONAL SALES MANAGER: No RADIOLOGY DEPARTMENT: CT; Exam(s) Completed: Chest and Neck PERIPHERAL IV DATA: Site assessment: Clean,Dry and Intact, Site disposition Discontinued SIGNED BY: RT Perlita(R) April 23, 2024 9:35 AM documented in this encounterCommunity Regional Medical Center10-17-2024 NoteHNO ID: [id number] Author: RAFAEL ZURITA RT(R) Service: ? Author [...] PATIENT PRESENTS WITH AN IMPLANTABLE OR ATTACHED INTERNATIONAL SALES MANAGER: No RADIOLOGY DEPARTMENT: CT; Exam(s) Completed: Chest and Neck PERIPHERAL IV DATA: Site assessment: Clean,Dry and Intact, Site disposition Discontinued SIGNED BY: RT Perlita(R) April 23, 2024 9:35 [facility]10-15-2024 History of Present illness Narrative* Serene Morales MD - 04/21/2024 9:00 AM EDT Subjective Patient ID: Manish Root is a 78 y.o. 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/2022 Metastatic cancer to cervical lymph nodes ([facility]/HCC) 12/15/2022 Arteriosclerotic cardiovascular disease ([facility]/HCC) 01/15/2023 Colon cancer ([facility]/HCC) 11/19/2012 DM II (diabetes mellitus, type II), controlled ([facility]/HCC) 01/15/2023 GERD (gastroesophageal reflux disease) 01/15/2023 History of UT (myocardial infarction) ([facility]/HCC) 01/15/2023 HTN (hypertension) ([facility]/HCC) 01/15/2023 OJEDA (nonalcoholic steatohepatitis) 01/15/2023 Stage 2 chronic kidney disease 2022 Facial lesion 01/21/2023 CAD (coronary artery disease) ([facility]) 06/10/2023 Chemotherapy-induced neutropenia (CMS/HCC) 10/19/2022 Type 2 [...] Date Diabetes (CMS/HCC) HCVD (hypertensive cardiovascular disease) ([facility]) Hx of myocardial infarction ([facility]/HCC) Hypertension ([facility]/HCC) Inguinal hernia, right Raynaud's disease Sinusitis Thyromegaly ([facility]) Type 2 diabetes mellitus ([facility]/HCC) Past Surgical History: Procedure Laterality Date CARDIAC [...] 1 (one) time each day atthe same time. fenofibrate micronized (Lofibra) 134 MG [...] visit. Objective Last Recorded Vitals Vitals: 04/21/24 09 BP: 173/73 ENT Physical Exam Constitutional Appearance: patient appears well-developed and well-nourished, Oral Cavity/Oropharynx OC/OP comments: OC/OP/IDL - no mass or ulcer Neck Neck comments: Supple, FROM, No LAD Assessment/Plan Diagnoses and all orders for this visit: Cancer of base of tongue (CMS/HCC) ANAHY today. Monthly appt till July documented in this encounterWright Memorial [id number] History of Present illness Narrative* Serene Morales MD - 03/24/2024 9:00 AM EDT Subjective Patient ID: Manish Root is a 78 y.o. male who presents for Cancer (1 mo check cancer base of tongue) Family History Adopted: Yes Problem Relation Name Age of Onset No Known Problems Mother No Known Problems Father Active Ambulatory Problems Diagnosis Date Noted Cancer of base of tongue ([facility]/HCC) 12/15/2022 Metastatic cancer to cervical lymph nodes ([facility]) 12/15/2022 Arteriosclerotic cardiovascular disease ([facility]) 01/15/2023 Colon cancer ([facility]/HCC) 11/19/2012 DM II (diabetes mellitus, type II), controlled ([facility]) 01/15/2023 GERD (gastroesophageal reflux disease) 01/15/2023 History of UT (myocardial infarction) ([facility]) 01/15/2023 HTN (hypertension) ([facility]) 01/15/2023 OJEDA (nonalcoholic steatohepatitis) 01/15/2023 Stage 2 chronic kidney disease 2022 Facial lesion 01/21/2023 CAD (coronary artery disease) ([facility]) 06/10/2023 Chemotherapy-induced neutropenia ([facility]) 10/19/2022 Type 2 diabetes mellitus without complications ([facility]) 06/10/2023 Diastasis recti 01/15/2023 Encounter for Medicare annual wellness exam 06/10/2023 Neck muscle spasm 11/20/2023 Throat cancer ([facility]/HCC) 12/04/2023 Hyperlipidemia ([facility]) 12/16/2023 Resolved Ambulatory Problems Diagnosis Date Noted Overweight 12/15/2022 Acute pain of right shoulder 12/15/2022 Basal cell carcinoma (BCC) of face 12/15/2022 Chemotherapy-induced neutropenia ([facility]/HCC) 10/19/2022 Diastasis recti 01/15/2023 Disorder of prostate 01/15/2023 Glucose intolerance 01/15/2023 History of colonic polyps 01/15/2023 History of malignant neoplasm of colon 01/15/2023 Hypercholesterolemia ([facility]/HCC) 01/15/2023 Raynaud's syndrome 01/15/2023 Vitamin D deficiency 01/15/2023 Past Medical History: Diagnosis Date Diabetes ([facility]) HCVD (hypertensive cardiovascular disease) ([facility]) Hx of myocardial infarction ([facility]) Hypertension ([facility]) Inguinal hernia, right Raynaud's disease Sinusitis Thyromegaly ([facility]) Type 2 diabetes mellitus ([facility]) Past Surgical History: Procedure Laterality Date CARDIAC [...] 1 (one) time each day atthe same time. fenofibrate micronized (Lofibra) 134 MG [...] visit: Cancer of base of tongue (CMS/HCC) ANHAY today. Monthly appts till July documented in this encounterWright Memorial [id number] History of Present illness Narrative* Serene Morales MD - 02/25/2024 9:00 AM EDT Subjective Patient ID: Manish Root [...] GERD (gastroesophageal reflux disease) 01/15/2023 History of UT (myocardial infarction) ([facility]/HCC) 01/15/2023 HTN (hypertension) (CMS/HCC) 01/15/2023 OJEDA (nonalcoholic [...] Date Diabetes (CMS/HCC) HCVD (hypertensive cardiovascular disease) ([facility]/HCC) Hx of myocardial infarction ([facility]/HCC) Hypertension (CMS/HCC) Inguinal hernia, right Raynaud's disease Sinusitis Thyromegaly ([facility]/HCC) Type 2 diabetes mellitus ([facility]/HCC) Past Surgical History: Procedure Laterality Date CARDIAC [...] 1 (one) time each day atthe same time. fenofibrate micronized (Lofibra) 134 MG [...] Monthly appts till July documented in this encounterWright Memorial [id number] History of Present illness Narrative* Yordan Feliz MD - 11/06/2023 10:00 AM EDT Radiation Oncology - Follow Up [...] Lymph 1.00 - 4.00 k/uL 0.48 (L) [place]% % 10.4 Abs [place] <0.87 k/uL 0.32 Eosin% % 1.6 Abs [...] Yordan Feliz MD cc: Dr. Shaikh Drake [address] [place] [address] documented in this encounterCommunity Regional Medical Center04-17-2024 Instructions* Patient Instructions* Kelli Merchant - 10/23/2023 11:[address] Neck and Chest in 6 months Labs same day, include anemia workup RTC 1 week after to review documented in this encounterCommunity Regional Medical Center04-17-2024 History of Present illness Narrative* John England MD - 10/23/2023 10:45 AM EDT Images from the original note were not included. NAME: Root Manish [facility] NO.: [id number] DATE OF SERVICE: October 23, 2023 (Jacquelyn) [...] CT chest @ 6 weeks March 2023 showedinvolution of the lesion and now only ground [...] an adjacent subcentimeter nodule which is also decreasedin density. Finally, there is a 3 mm [...] 1999 - Colon Ca Stage 3 - / LN + [place] regimen on protocol Updated Visit, October 23, [...] Resp 16 Ht 5' 5.709 (1.67m) Wt 192lb 14.4 oz (87.5kg) SpO2 98% BMI 31.41 [...] a central line or IVAD, may access foradministration according to line specific nursing protocol. Once [...] Once exam is complete flush line and de-accessaccording to line specific nursing protocol in the [...] which included preparing to see the patient, qics-tw-[id number] patient care, completing clinical documentation, performing a medically appropriate examination, counseling and educating the patient/family/caregiver, ordering medications, tests, or p rocedures, independently interpreting results (not separately reported), communicating results to the patient/family/caregiver, and care coordination (not separately reported). John England MD, CPE Hematology and Oncology Services Provided at: [place], [place] Scribe Attestation: This note was scribed by Kelli Merchant on October 23, 2023 under the direction and supervision ofDr. John England. I attest that all of the information documented is correct to the best of my knowledge. Provider Attestation: I, John England MD, attest that all information documented by the above scribe is correct, and was supervised by me and under my direction. CC: Dr. Yordan Morales documented in this encounterCommunity Regional Medical Center04-10-2024 Miscellaneous Notes* Telephone Encounter - Rafael Bob RN - 10/16/2023 1:14 PM EDT Pt had labs drawn today. Requests that the results be faxed to his PCP, Dr Drake. Results of CBC and CMP faxed to [phone]. Rafael Bob RN documented in this encounterCommunity Regional Medical Center04-10-2024 History of Present illness Narrative* Rafael Zurita RT(R) - 10/16/2023 10:45 AM EDT Radiology Service Progress Note PATIENT [...] PATIENT PRESENTS WITH AN IMPLANTABLE OR ATTACHED INTERNATIONAL SALES MANAGER: No RADIOLOGY DEPARTMENT: CT; Exam(s) Completed: Chest and Neck PERIPHERAL IV DATA: Site assessment: Clean,Dry and Intact, Site disposition Discontinued SIGNED BY: RT Perlita(Ebonie) October 16, 2023 11:34 AM documented in this encounterCommunity Regional Medical Center12-06-2023 History of Present illness Narrative* Gisela Villavicencio RN - 06/12/2023 7:45 AM EST Radiology Service Progress Note DATE [...] DATE: June 12, 2023 TIME: 8:07 AM * Rafael Zurita RT(R) - 06/12/2023 7:45 AM EST Radiology Service Progress Note PATIENT NAME: Manish [...] 12, 2023 8:18 AM documented in this encounterCommunity Regional Medical Center2023 History of Present illness Narrative* Yordan Feliz MD - 05/08/2023 11:15 AM EDT Radiation Oncology - Follow Up [...] Feliz MD cc: Dr. Shaikh Vidal Estrada [address] [place] [address] documented in this encounterCommunity Regional Medical Center09-13-2023 Instructions* Patient Instructions* John England MD - 03/20/2023 1:[address] Chest in 3 months Labs same day RTC 1 week after to review. documented in this encounterCommunity Regional Medical Center09-13-2023 History of Present illness Narrative* John England MD - 03/20/2023 1:15 PM EDT Images from the original note were not included. NAME: Dk Manish [facility] NO.: [id number] DATE OF SERVICE: March 20, 2023 (juliana) [...] CT chest @ 6 weeks March 2023 showedinvolution of the lesion and now only ground [...] the anterior right lower lobe which was notclearly seen on the prior PET/CT. 01/29/2023 - [...] lymph node measuring 1.7 x 1.0 x 1 .0 cm suspicious for metastatic disease. June 2022 - voice changed and trouble swallowing. February 2022 - started losing weight 1999 - Colon Ca Stage 3 - 2/5 LN + [place] regimen on protocol Updated Visit, March 20, [...] Resp 16 Ht 5' 5.709 (1.67m) Wt 176lb 3.2 oz (79.9kg) SpO2 98% BMI 28.69 [...] Once exam is complete flush line and de-accessaccording to line specific nursing protocol in the [...] which included preparing to see the patient, vrjr-hv-vajm patient care, completing clinical documentation, performing a medically appropriate examination, counseling and educating the patient/family/caregiver, ordering medications, tests, or p rocedures, independently interpreting results (not separately reported), communicating results to the patient/family/caregiver, and care coordination (not separately reported). John England MD, CPE Hematology and Oncology Services Provided at: [place], [place] CC: Dr. Yordan Morales documented in this encounterCommunity Regional Medical Center09-07-2023 History of Present illness Narrative* Maggie Partida RN - 03/14/2023 1:45 PM EDT Radiology Service Progress Note DATE OF [...] DATE: March 14, 2023 TIME: 1:55 PM * Rafael Zurita RT(R) - 03/14/2023 1:45 PM EDT Radiology Service Progress Note PATIENT NAME: [...] 14, 2023 1:52 PM documented in this encounterCommunity Regional Medical Center08-02-2023 Instructions* Patient Instructions* John England MD - 02/06/2023 12:[address] Chest in 5 weeks RTC 6 weeks to review please documented in this encounterCommunity Regional Medical Center08-02-2023 History of Present illness Narrative* Yordan Feliz MD - 02/06/2023 11:45 AM EDT Radiation Oncology - Follow Up [...] Feliz MD cc: Dr. Shaikh Vidal Estrada [address] [place] [address] documented in this encounterCommunity Regional Medical Center08-02-2023 History of Present illness Narrative* John England MD - 02/06/2023 11:39 AM EDT Images from the original note were not included. NAME: Manish Root [facility] NO.: [id number] DATE OF SERVICE: February 06, 2023 (Jacquelyn) Some elements in this clinic note that are critical to medical decision making have been carefully reviewed and included from a prior clinic note dated: November 07, 2022 (Colejuliana) Referring Provider: Dr. Татьяна Feliz Additional Clinicians [...] lymph node measuring 1.7 x 1.0 x 1 .0 cm suspicious for metastatic disease. June 2022 - voice changed and trouble swallowing. February 2022 - started losing weight 1999 - Colon Ca Stage 3 - 2/5 LN + [place] regimen on protocol Updated Visit, February 06, [...] Resp 16 Ht 5' 5.709 (1.67m) Wt 178lb 6.4 oz (80.9kg) SpO2 98% BMI 29.05 [...] Once exam is complete flush line and de-accessaccording to line specific nursing protocol in the [...] which included preparing to see the patient, wkie-wd-zvao patient care, completing clinical documentation, performing a medically appropriate examination, counseling and educating the patient/family/caregiver, ordering medications, tests, or p rocedures, communicating with other HCPs (not separately reported), independently interpreting results (not separately reported), communicating results to the patient/family/caregiver, and care coordination (not separately reported). John England MD, CPE Hematology and Oncology Services Provided at: [place], [place] CC: Dr. Yordan Morales documented in this encounterCommunity Regional Medical Center08-02-2023 Nurse Note* Lala Pitt MA - 02/06/2023 11:31 AM EDT Patient has easy bruising more so on arms, voice is always changing and has a lot of phlegm. Lala Hooper MA documented in this encounterCommunity Regional Medical Center07-25-2023 History of Present illness Narrative* Maggie Partida RN - 01/29/2023 10:45 AM EDT Radiology Service Progress Note DATE [...] DATE: January 29, 2023 TIME: 11:06 AM * Malcolm Thurston RT(R) - 01/29/2023 10:45 AM EDT RADIOLOGY SERVICE PROGRESS NOTE SERVICE DATE: 01/29/2023 [...] 1105 PATIENT DISCHARGED TO: Ambulatory patient, left [place] department area. A Diagnostic radioactive procedure has taken place, with no further precautions necessary other than routine body substance precautions. More information regarding radiation safety can be found usingthis link: [email or web address] SIGNATURE: Malcolm Thurston, RT(R) PATIENT NAME: Manish Root DATE: January 29, 2023 TIME: 11:48 AM PAGER/CONTACT #: documented in this encounterCommunity Regional Medical Center05-24-2023 History of Present illness Narrative* G Jeyson Feliz MD - 11/28/2022 2:35 PM EDT Radiation Oncology - Follow Up Note [...] Swelling has improved considerably. No significant oral cavityoropharyngeal or neck pain. ALLERGIES No Known Allergies [...] radiation related issues. No evidence of persistent orrecurrent disease. He continues close follow-up with Dr. Morales. PET scan ordered for 12 weeks from completion of treatment. We will plan to see patient back i after his PET scan. Signed by: Yordan Feliz MD cc: Mannie Nelson [facility] [place] [address] [place] [address] documented in this encounterCommunity Regional Medical Center05-03-2023 Instructions* Patient Instructions* John England MD - 11/07/2022 9:53 AM EDT Continue seeing Dr. Feliz and Dr. Morales. RTC in 12 -13 weeks (after PET is complete) PET per Dr. Feliz Coordinate return on same date as Dr. Feliz. Labs on day return documented in this encounterCommunity Regional Medical Center05-03-2023 History of Present illness Narrative* John England MD - 11/07/2022 9:21 AM EDT Images from the original note were not included. NAME: Manish Root NO.: [id number] DATE OF SERVICE: November 07, 2022 (Jacquelyn) [...] lymph node measuring 1.7 x 1.0 x 1 .0 cm suspicious for metastatic disease. June 2022 - voice changed and trouble swallowing. February 2022 - started losing weight 1999 - Colon Ca Stage 3 - 2/5 LN + [place] regimen on protocol Updated Visit, November 07, [...] 16 Ht 5' 5.709 (1.67m) Wt 172lb 3.2 oz (78.1kg) SpO2 100% BMI 28.04 [...] which included preparing to see the patient, gaja-ex-relq patient care, completing clinical documentation, performing a medically appropriate examination, counseling and educating the patient/family/caregiver, ordering medications, tests, or p rocedures, and independently interpreting results (not separately reported). John England MD, CPE Hematology and Oncology Services Provided at: [place], [place] CC: Dr. Yordan Morales documented in this encounterCommunity Regional Medical Center04-27-2023 Evaluation note* Diagnosis 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 Stage 3 chronic kidney disease, unspecified whether stage 3a or 3b CKD (HCC) documented in this encounter [facility]04-26-2023 History of Present illness Narrative* Natalie Cadena APRN.ARTIST AND REPERTOIRE MANAGER - 10/31/2022 2:30 PM EDT Images from the original note were not included. NAME: Manish Root [facility] NO.: [id number] DATE OF SERVICE: October 31, 2022 (Surinder) [...] Ca Stage 3 - 2/5 LN + [place] regimen on protocol Updated Visit, October 31, [...] APRN.CNP Hematology and Oncology Services Provided at: [place], [place] CC: Dr. Yordan Morales I spent a total of 30 minutes on the date of the service which included preparing to see the patient, lvdy-hj-ziug patient care, completing clinical documentation, obtaining and/or reviewing separately obtained history, performing a medically appropriate examination, counseling and educating the pat ient/family/caregiver, ordering medications, tests, or procedures, independently interpreting results (not separately reported), and communicating results to the patient/family/caregiver. documented in this encounterCommunity Regional Medical Center04-26-2023 History of Present illness Narrative* [...] by: Yordan Feliz MD cc: Mannie Nelson [facility] [place] [address] Natalie Cadena [address] [place] [address] [place] [address] documented in this encounterCommunity Regional Medical Center04-20-2023 History of Present illness Narrative* Natalie Cadena APRN.ARTIST AND REPERTOIRE MANAGER - 10/25/2022 10:01 AM EDT Images from the original note were not included. NAME: Root Manish [facility] NO.: [id number] DATE OF SERVICE: October 25, 2022 (Surinder) [...] Ca Stage 3 - 2/5 LN + [place] regimen on protocol Updated Visit, October 25, [...] APRN.CNP Hematology and Oncology Services Provided at: [place], [place] CC: Dr. Yordan Morales I spent a total of 30 minutes on the date of the service which included preparing to see the patient, stbi-se-ticn patient care, completing clinical documentation, obtaining and/or reviewing separately obtained history, performing a medically appropriate examination, counseling and educating the pat ient/family/caregiver, ordering medications, tests, or procedures, independently interpreting results (not separately reported), and communicating results to the patient/family/caregiver. documented in this encounterCommunity Regional Medical Center04-17-2023 History of Present illness Narrative* Yordan Feliz MD - 10/22/2022 12:00 AM EDT [facility] Radiation Oncology Department RADIATION ONCOLOGY - COMPLETION [...] cc: Dr. Jacquelyn Morales documented in this encounterCommunity Regional Medical Center04-14-2023 History of Past illness Narrative* ProblemNoted DateDiagnosed DateResolved DateChemotherapy-induced fvkyqknukjk00/14/202304/Overlapping malignant neoplasm of colon documented as of this encounter (statuses as of 10/24/2023) [facility]04-14-[facility] History of Present illness Narrative* [...] Gil MS, RDN, LD documented in this encounterCommunity Regional Medical Center04-14-2023 Instructions* Patient Instructions* John England MD - 10/19/2022 10:25 AM EDT Ciproflox prophylaxis. Neupogen 480 mcg x 1 today Needs to hydrate. Labs next Saturday CBC, CMP, possible hydration Stay for results - see Natalie documented in this encounterCommunity Regional Medical Center04-14-2023 History of Present illness Narrative* John England MD - 10/19/2022 10:05 AM EDT Images from the original note were not included. NAME: Manish Root [facility] NO.: [id number] DATE OF SERVICE: October 19, 2022 (Jacquelyn) [...] Ca Stage 3 - 2/5 LN + [place] regimen on protocol Updated Visit, October 19, [...] which included preparing to see the patient, ehwe-tx-bqtw patient care, completing clinical documentation, obtaining and/or reviewing separately obtained history, counseling and educating the patient/family/caregiver, ordering medications, cliff ts, or procedures, and independently interpreting results (not separately reported). John England MD, CPE Hematology and Oncology Services Provided at: [place], [place] CC: Dr. Yordan Morales documented in this encounterCommunity [facility]04[facility] History of Present illness Narrative* [...] discussed. Yordan Feliz MD documented in this encounterCommunity [facility] Medical Center04-04-2023 Miscellaneous Notes* Telephone Encounter - [...] recommendations? Diana García LPN documented in this encounterCommunity [facility] Medical Center04-03-2023 History of Present illness Narrative* [...] outlined. Yordan Feliz MD documented in this encounterCommunity [facility] Center03-31-2023 History of Present illness Narrative* Dee Gil RD - 10/05/2022 10:45 AM EDT Oncology Nutrition Therapy Progress Note Attemped to see patient, however patient left after radiation treatment and did not stay for appointment with dietitian. Signed by: Dee Gil MS, RDN, LD documented in this encounterCommunity Regional Medical Center03-27-2023 History of Present illness Narrative* Natalie Cadena APRN.ARTIST AND REPERTOIRE MANAGER - 10/01/2022 11:26 AM EDT Images from the original note were not included. NAME: Manish Root [facility] NO.: [id number] DATE OF SERVICE: October 01, 2022 (Surinder) [...] Ca Stage 3 - 2/5 LN + [place] regimen on protocol Updated Visit, October 01, [...] APRN.CNP Hematology and Oncology Services Provided at: [place], [place] CC: Dr. Yordan Morales I spent a total of 30 minutes on the date of the service which included preparing to see the patient, [id number] patient care, completing clinical documentation, obtaining and/or reviewing separately obtained history, performing a medically appropriate examination, counseling and educating the pat ient/family/caregiver, ordering medications, tests, or procedures, independently interpreting results (not separately reported), and communicating results to the patient/family/caregiver. documented in this encounterCommunity [facility] Medical Center03-27-2023 History of Present illness Narrative* Yordan Feliz [...] outlined. Yordan Feliz MD documented in this encounterCommunity [facility] Medical Center03-20-2023 History of Present illness Narrative* [...] Continue radiation as outlined. documented in this encounterCommunity Regional Medical Center03-17-2023 History of Present illness Narrative* Dee Gil, RD - 09/21/2022 10:06 AM EDT [...] Dosing Weight: 84.8 kg Estimated kilocalorie needs: 5067-0095 kilocalories determined by 25-30 kcal/kg Estimated protein needs: 85-102 grams determined by 1.0-1.2 g/kg Current weight Estimated fluid needs: ~5101-5968 milliliters based on 1 mL per kcal [...] Gil, MS, RDN, LD documented in this encounterCommunity [facility] Medical Center03-13-2023 History of Present illness Narrative* [...] Continue radiation as outlined. documented in this encounterCommunity [facility] Medical Center03-06-2023 History of Present illness Narrative* [...] Continue radiation as outlined. documented in this encounterCommunity Regional Medical Center03-03-2023 Miscellaneous Notes* Telephone Encounter - ISH Waite - 09/07/2022 12:11 PM EST SOCIAL WORK FOLLOW UP NOTE: CANCER CENTER Date of service:09/07/22 Manish Root is being seen for a follow up social work visit. Today's visit includes: patient TOPICS ADDRESSED: [employer] [facility] PLAN: Assist with financial support applications and Continue follow up as needed F/U APPOINTMENT: PRN Assigned SW listed in Care Team tab: Yes Patient dropped off a partial completed intake form for the [facility]. Sw completed the medical section of the form and faxed it to Maren at the [facility]. JEANNETTE called Maren to verify that the fax was received. JEANNETTE called Patient to let him know that his application was received and he needs to call Maren to talk about next steps. JEANNETTE will remain available and will follow up as appropriate. CHARLIE Waite documented in this encounterCommunity Regional Medical Center03-02-2023 Miscellaneous Notes* Telephone Encounter - [...] protocol. Rafael Bob RN documented in this encounterCommunity Regional Medical Center02-27-2023 History of Present illness Narrative* [...] ordered. Araceli Anne RN documented in this encounterCommunity Regional Medical Center02-27-2023 Instructions* Patient Instructions* John England MD - 09/03/2022 11:12 AM EST Start Cisplatin weekly to start with radiation Labs weekly please. RTC 1 week See Amina / Natalie Labs same day. documented in this encounterCommunity Regional Medical Center02-27-2023 History of Present illness Narrative* John England MD - 09/03/2022 10:45 AM EST Images from the original note were not included. NAME: Manish Root [facility] NO.: [id number] DATE OF SERVICE: September 03, 2022 (Jacquelyn) [...] Ca Stage 3 - 2/5 LN + [place] regimen on protocol Updated Visit, September 03, [...] which included preparing to see the patient, [id number] patient care, completing clinical documentation, performing a medically appropriate examination, counseling and educating the patient/family/caregiver, ordering medications, tests, or p rocedures, communicating with other HCPs (not separately reported), independently interpreting results (not separately reported), and care coordination (not separately reported). John England MD, CPE Hematology and Oncology Services Provided at: [place], [place] CC: MD Serene Mcclendon MD documented in this encounterCommunity [facility] Medical Center02-27-2023 History of Present illness Narrative* [...] Continue radiation as prescribed. documented in this encounterCommunity Regional Medical Center02-22-2023 Miscellaneous Notes* Telephone Encounter - Rafael Bob RN - 08/29/2022 12:52 PM EST Pt calls w/ questions pertaining to his upcoming treatment. Questions reviewed and answered. Pt denies any further questions at this time. Rafael Bob RN documented in this encounterCommunity Regional Medical Center02-21-2023 Miscellaneous Notes* Telephone Encounter - [...] Thanks! Rafael Bob RN documented in this encounterCommunity Regional Medical Center02-20-2023 Miscellaneous Notes* Telephone Encounter - Rafael Bob RN - 08/27/2022 11:23 AM EST Pt had several questions pertaining to treatment while he was here today. Questions reviewed and answered in person. No additional questions noted. Appointment reminder provided to pt as well. Rafael Bob RN documented in this encounterCommunity Regional Medical Center02-20-2023 History of Present illness Narrative* [...] 0942 PATIENT DISCHARGED TO: Ambulatory patient, left [place] department area. A Diagnostic radioactive procedure has taken place, with no further precautions necessary other than routine body substance precautions. More information regarding radiation safety can be found usingthis link: [email or web address] SIGNATURE: Rafael Zurita RT(R) PATIENT NAME: Manish Root DATE: August 27, 2022 TIME: 9:53 AM PAGER/CONTACT #: documented in this encounterCommunity Regional Medical Center02-17-2023 Miscellaneous Notes* Telephone Encounter - [...] Thanks! 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 0:14 AM documented in this encounterCommunity Regional Medical Center02-14-2023 Miscellaneous Notes* Telephone Encounter - Rafael Bob RN - 08/21/2022 3:16 PM EST Pt will be in on for education (Cisplatin). Scripts for antiemetics pended. Sincere: Please place chemotherapy orders. Thanks! Rafael Bob RN documented in this encounterCommunity Regional Medical Center02-13-2023 History of Present illness Narrative* Dee Gil, [...] Dosing Weight: 84.7 kg Estimated kilocalorie needs: 7333-5821 kilocalories determined by 25-30 kcal/kg Estimated protein needs: 85-102 grams determined by 1.0-1.2 g/kg Dosing weight Estimated fluid needs: ~3983-5682 milliliters based on 1 mL per kcal [...] Gil MS, RDN, LD documented in this encounterCommunity Regional Medical Center02-09-2023 Instructions* Patient Instructions* John England MD - 08/16/2022 4:45 PM EST Will plan Cisplatin weekly to start with radiation Needs labs next visit at time of [facility]. RTC prior to start Consent signed Needs education documented in this encounterCommunity Regional Medical Center02-09-2023 History of Present illness Narrative* John England MD - 08/16/2022 4:06 PM EST Images from the original note were not included. NAME: Manish Root [facility] NO.: [id number] DATE OF SERVICE: August 16, 2022 Referring [...] Ca Stage 3 - 2/5 LN + [place] regimen on protocol Initial Visit, August 16, [...] which included preparing to see the patient, [id number] patient care, completing clinical documentation, performing a medically appropriate examination, counseling and educating the patient/family/caregiver, ordering medications, tests, or p rocedures, communicating with other HCPs (not separately reported), independently interpreting results (not separately reported), and care coordination (not separately reported). John England MD, CPE Hematology and Oncology Services Provided at: [facility], [place], [place] CC: MD Serene Mcclendon MD documented in this encounterCommunity Regional Medical Center02-08-2023 Miscellaneous Notes* Telephone Encounter - Randal Brooks - 08/15/2022 1:14 PM EST Patient called back and said that he is scheduled at [facility] in [place], [place] 08/15/22. Dental evaluation form has been faxed to: [phone]. Randal Brooks * Telephone Encounter - Randal Brooks - 08/15/2022 11:47 AM EST Patient has been scheduled for dental appointment at [facility] on 09/04. Due to the nature [...] Antoine RN - 08/15/2022 9:56 AM EST [facility] will need referral placed to see pt and schedule dental eval for clearance. Dr Dave- can you please sign in Dr Feliz's absence? Thank you Nela Antoine RN documented in this encounterCommunity Regional Medical Center02-07-2023 History of Present illness Narrative* [...] voice changes that his family noticed at [facility], and he has had approximate 11 [...] the lung. Would recommend concurrent radiation with modoc based chemotherapy. Patient is eligible for current [...] Yordan Feliz MD cc: Mannie Nelson [address] [place] [id number] Serene Morales MD [address] [place] [id number] documented in this encounterCommunity Regional Medical Center02-07-2023 Nurse Note* Nela Antoine RN - 08/14/2022 10:58 AM EST Radiation Therapy - Patient Education Note PATIENT NAME: Manish Root PATIENT August 14, 2022 [facility] FACILITY/LOCATION: [facility] READINESS TO LEARN Cognitive Ability: Alert and [...] by: Nela Antoine RN documented in this encounterCommunity Regional Medical Center01-24-2023 NoteOPERATIVE NOTE OPERATION DATE: 07/31/2022 [...] recovery room in good condition.[facility] [id number] NoteOPERATIVE NOTE OPERATION DATE: 07/18/2022 PREOPERATIVE DIAGNOSIS: [...] results. CC: Patient's family physicianThe [facility] [id number] NoteChief Complaint consultation for colon recall HPI [...] cancer History of colon polyps History of UT (myocardial infarction) HTN (hypertension) Hypercholesterolemia OJEDA (nonalcoholic [...] Oral, Daily ergocalciferol 50,000 intl units Cap, 39248 International_Unit= 1 cap(s), Oral, qWeek fenofibrate 134 [...] 06/13/2022 Family History Patient (more content not included)...[facility]Comment [facility]:Result Comment: Electronically Signed By: Renea PARTIDA MD\Date and Time Signed: 06/13/22 15:31 [id number] History of Past illness Narrative* ProblemNoted DateResolved DateOverlapping malignant neoplasm of colon documented as of this encounter (statuses as of 08/14/2022) [address]22-2015 History of Past illness Narrative* ProblemNoted Date Resolved DateOverlapping malignant neoplasm of colon documented as of this encounter (statuses as of 08/14/2022) [address]22[address]2015 History of Past illness Narrative* ProblemNoted Date Resolved DateOverlapping malignant neoplasm of colon documented as of this encounter (statuses as of 08/15/2022) [address]22[address]2015 History of Past illness Narrative* ProblemNoted Date Resolved DateOverlapping malignant neoplasm of colon documented as of this encounter (statuses as of 08/17/2022) [address]22[address]2015 History of Past illness Narrative* ProblemNoted Date Resolved DateOverlapping malignant neoplasm of colon documented as of this encounter (statuses as of 08/20/2022) [address]22[address]2015 History of Past illness Narrative* ProblemNoted Date Resolved DateOverlapping malignant neoplasm of colon documented as of this encounter (statuses as of 08/22/2022) [address]22[address]2015 History of Past illness Narrative* ProblemNoted Date Resolved DateOverlapping malignant neoplasm of colon documented as of this encounter (statuses as of 08/22/2022) [address]22[address] History of Past illness Narrative* ProblemNoted Date Resolved DateOverlapping malignant neoplasm of colon documented as of this encounter (statuses as of 08/24/2022) [address]22[address]2015 History of Past illness Narrative* ProblemNoted Date Resolved DateOverlapping malignant neoplasm of colon documented as of this encounter (statuses as of 08/24/2022) [address]22[address]2015 History of Past illness Narrative* ProblemNoted Date Resolved DateOverlapping malignant neoplasm of colon documented as of this encounter (statuses as of 08/27/2022) [address]2015 History of Past illness Narrative* ProblemNoted Date Resolved DateOverlapping malignant neoplasm of colon documented as of this encounter (statuses as of 08/27/2022) [address]22[address]2015 History of Past illness Narrative* ProblemNoted Date Resolved DateOverlapping malignant neoplasm of colon documented as of this encounter (statuses as of 08/28/2022) [address]22[address]2015 History of Past illness Narrative* ProblemNoted Date Resolved DateOverlapping malignant neoplasm of colon documented as of this encounter (statuses as of 08/29/2022) [address]22[address]2015 History of Past illness Narrative* ProblemNoted Date Resolved DateOverlapping malignant neoplasm of colon documented as of this encounter (statuses as of 09/03/2022) [address]22[address]2015 History of Past illness Narrative* ProblemNoted Date Resolved DateOverlapping malignant neoplasm of colon documented as of this encounter (statuses as of 09/03/2022) [address] History of Past illness Narrative* ProblemNoted Date Resolved DateOverlapping malignant neoplasm of colon documented as of this encounter (statuses as of 09/04/2022) [address] History of Past illness Narrative* ProblemNoted Date Resolved DateOverlapping malignant neoplasm of colon documented as of this encounter (statuses as of 09/06/2022) [address]2015 History of Past illness Narrative* ProblemNoted Date Resolved DateOverlapping malignant neoplasm of colon documented as of this encounter (statuses as of 09/07/2022) [address]22[address]2015 History of Past illness Narrative* ProblemNoted Date Resolved DateOverlapping malignant neoplasm of colon documented as of this encounter (statuses as of 09/10/2022) [address] History of Past illness Narrative* ProblemNoted Date Resolved DateOverlapping malignant neoplasm of colon documented as of this encounter (statuses as of 09/10/2022) [address]2015 History of Past illness Narrative* ProblemNoted Date Resolved DateOverlapping malignant neoplasm of colon documented as of this encounter (statuses as of 09/11/2022) [address]22[address]2015 History of Past illness Narrative* ProblemNoted Date Resolved DateOverlapping malignant neoplasm of colon documented as of this encounter (statuses as of 09/17/2022) [address]22[address]2015 History of Past illness Narrative* ProblemNoted Date Resolved DateOverlapping malignant neoplasm of colon documented as of this encounter (statuses as of 09/18/2022) [address] History of Past illness Narrative* ProblemNoted Date Resolved DateOverlapping malignant neoplasm of colon documented as of this encounter (statuses as of 09/21/2022) [address]2015 History of Past illness Narrative* ProblemNoted Date Resolved DateOverlapping malignant neoplasm of colon documented as of this encounter (statuses as of 09/24/2022) [address]22[address]2015 History of Past illness Narrative* ProblemNoted Date Resolved DateOverlapping malignant neoplasm of colon documented as of this encounter (statuses as of 10/01/2022) [address]22[address]2015 History of Past illness Narrative* ProblemNoted Date Resolved DateOverlapping malignant neoplasm of colon documented as of this encounter (statuses as of 10/03/2022) [address]22[address]2015 History of Past illness Narrative* ProblemNoted Date Resolved DateOverlapping malignant neoplasm of colon documented as of this encounter (statuses as of 10/05/2022) [address]2015 History of Past illness Narrative* ProblemNoted Date Resolved DateOverlapping malignant neoplasm of colon documented as of this encounter (statuses as of 10/08/2022) [address]22[address]2015 History of Past illness Narrative* ProblemNoted Date Resolved DateOverlapping malignant neoplasm of colon documented as of this encounter (statuses as of 10/09/2022) [address] History of Past illness Narrative* ProblemNoted Date Resolved DateOverlapping malignant neoplasm of colon documented as of this encounter (statuses as of 10/11/2022) [address]22[address]2015 History of Past illness Narrative* ProblemNoted Date Resolved DateOverlapping malignant neoplasm of colon documented as of this encounter (statuses as of 10/15/2022) [address] History of Past illness Narrative* ProblemNoted Date Resolved DateOverlapping malignant neoplasm of colon documented as of this encounter (statuses as of 10/19/2022) [address]2015 History of Past illness Narrative* ProblemNoted Date Resolved DateOverlapping malignant neoplasm of colon documented as of this encounter (statuses as of 10/20/2022) [address]2015 History of Past illness Narrative* ProblemNoted Date Resolved DateOverlapping malignant neoplasm of colon documented as of this encounter (statuses as of 10/26/2022) [address]22[address]2015 History of Past illness Narrative* ProblemNoted Date Resolved DateOverlapping malignant neoplasm of colon documented as of this encounter (statuses as of 2022) [address]2015 History of Past illness Narrative* ProblemNoted Date Resolved DateOverlapping malignant neoplasm of colon documented as of this encounter (statuses as of 2022) [address]22[address]2015 History of Past illness Narrative* ProblemNoted Date Resolved DateOverlapping malignant neoplasm of colon documented as of this encounter (statuses as of 2022) [address]22[address]2015 History of Past illness Narrative* ProblemNoted Date Resolved DateOverlapping malignant neoplasm of colon documented as of this encounter (statuses as of 11/07/2022) [address]2015 History of Past illness Narrative* ProblemNoted Date Resolved DateOverlapping malignant neoplasm of colon documented as of this encounter (statuses as of 11/07/2022) [facility] Narr[facility]* ProblemNoted Date Resolved DateOverlapping malignant neoplasm of colon documented as of this encounter (statuses as of 12/04/2022) [address]2015 History of Past illness Narrative* ProblemNoted Date Diagnosed DateResolved DateOverlapping malignant neoplasm of colon04/28/2015 04/28/2015documented as of this encounter (statuses as of 02/06/2023) [address]22[address]2015 History of Past illness Narrative* ProblemNoted Date Diagnosed DateResolved DateOverlapping malignant neoplasm of colon04/28/2015 04/28/2015documented as of this encounter (statuses as of 02/06/2023) [address]2015 History of Past illness Narrative* ProblemNoted Date Diagnosed DateResolved DateOverlapping malignant neoplasm of colon04/28/2015 04/28/2015documented as of this encounter (statuses as of 02/11/2023) [facility] Narrative* ProblemNoted Date Diagnosed DateResolved DateOverlapping malignant neoplasm of colon04/28/2015 04/28/2015documented as of this encounter (statuses as of 03/20/2023) [facility] Narrative* ProblemNoted Date Diagnosed DateResolved DateOverlapping malignant neoplasm of colon04/28/2015 04/28/2015documented as of this encounter (statuses as of 05/15/2023) [facility] Narrative* ProblemNoted Date Diagnosed DateResolved DateOverlapping malignant neoplasm of colon04/28/2015 04/28/2015documented as of this encounter (statuses as of 10/17/2023) [facility] + Plan note No data available for this section General Surgery [facility] Evaluation note* Diagnosis 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, unspecified real estate site analyst and neck cancer (HCC) Malignant neoplasm of head, face, and neck [facility] Diagnosis 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, unspecified site [facility] Diagnosis 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) [facility]* Diagnosis 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, unspecified site [facility]* Diagnosis Tongue cancer (HCC)- Primary Malignant [...] tongue (HCC)- Primary [facility] Diagnosis Head and neck cancer [...] 3b CKD (HCC) [facility]* Diagnosis 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 [facility]* Diagnosis Hyperlipidemia, unspecified hyperlipidemia type- Primary Type 2 diabetes mellitus without complication, unspecified whether terminal superintendent insulin use (HCC) Unspecified essential hypertension [facility]* Diagnosis 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 Lung nodules Other nonspecific abnormal finding of lung field [facility]* Diagnosis Lung nodule seen on imaging study- Primary Solitary pulmonary nodule 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 [facility]* Diagnosis 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 [facility]* Diagnosis Other specified disorders of [...] neck documented in this encounter [facility] noteNo assessment information availableTrihealth Mccull[facility] Work Phone: Evaluation note* Diagnosis Lung nodules Other nonspecific abnormal finding of lung field 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) documented in this [facility] 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) Mass of right lung [facility] Diagnosis Lung nodules Other nonspecific abnormal finding of lung field [facility] Diagnosis 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) [facility] Diagnosis Tongue cancer (HCC) 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, 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 real estate site analyst and neck cancer (HCC) Malignant neoplasm of head, face, and neck [facility] Diagnosis Primary hypertension (CMS/HCC)- Primary Unspecified essential hypertension 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) Controlled type [...] hyperlipidemia type (CMS/HCC) 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) Controlled type 2 diabetes mellitus without complication, without long-term current use of insulin (CMS/HCC) 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 documented in this encounter [facility]* Diagnosis 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 Other nonspecific abnormal finding of lung field [facility] Diagnosis Primary hypertension (CMS/HCC)- Primary Unspecified essential hypertension 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) Controlled type [...] hyperlipidemia type (CMS/HCC) 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) Controlled type 2 diabetes mellitus without complication, without long-term current use of insulin (CMS/HCC) Primary hypertension (CMS/HCC)- Primary Unspecified essential hypertension Controlled type 2 diabetes mellitus without complication, without long-term current use of insulin (CMS/HCC) 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) documented in this encounter [facility]Evaluation note* Diagnosis 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 Lung nodules Other nonspecific abnormal finding of lung field Stage 3 chronic kidney disease, unspecified whether stage 3a or 3b CKD (HCC) [facility] Head and neck cancer (HCC)- Primary Malignant neoplasm of head, face, and neck [facility] Diagnosis Primary hypertension (CMS/HCC)- Primary Unspecified essential hypertension 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) Controlled type [...] hyperlipidemia type (CMS/HCC) 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) Controlled type 2 diabetes mellitus without complication, without long-term current use of insulin (CMS/HCC) Primary hypertension (CMS/HCC) Unspecified essential hypertension documented in this encounter [facility] note* Diagnosis Primary hypertension (CMS/HCC)- Primary Unspecified essential hypertension 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) Controlled type [...] hyperlipidemia type (CMS/HCC) 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) Controlled type 2 diabetes mellitus without complication, without long-term current use of insulin (CMS/HCC) Seborrheic keratosis- Primary Actinic keratosis documented in this encounter [facility]Evaluation note* Diagnosis Primary hypertension (CMS/HCC)- Primary Unspecified essential hypertension 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) Controlled type [...] hyperlipidemia type (CMS/HCC) 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) Controlled type [...] Unspecified essential hypertension 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) Controlled type [...] hyperlipidemia type (CMS/HCC) 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) Controlled type [...] Unspecified essential hypertension 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) Controlled type [...] hyperlipidemia type (CMS/HCC) 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) Controlled type 2 diabetes mellitus without complication, without long-term current use of insulin (CMS/HCC) Need for vaccination Need for prophylactic vaccination and inoculation against unspecified single disease documented in this encounter [facility]Evaluation [facility]* Diagnosis Primary hypertension (CMS/HCC)- Primary Unspecified essential hypertension 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) Controlled type [...] hyperlipidemia type (CMS/HCC) 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) Controlled type 2 diabetes mellitus without complication, without long-term current use of insulin (CMS/HCC) 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 documented in this encounter [facility]* Diagnosis Primary hypertension (CMS/HCC)- Primary Unspecified essential hypertension 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) Controlled type [...] hyperlipidemia type (CMS/HCC) 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) Controlled type [...] unspecified Actinic keratosis documented in this encounter [facility]* Diagnosis Primary hypertension (CMS/HCC)- Primary Unspecified essential hypertension 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) Controlled type [...] hyperlipidemia type (CMS/HCC) 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) Controlled type 2 diabetes mellitus without complication, without long-term current use of insulin (CMS/HCC) Seborrheic keratosis- Primary Actinic keratosis Seborrheic keratosis, inflamed documented in this encounter [facility]* Diagnosis Primary hypertension (CMS/HCC)- Primary Unspecified essential hypertension 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) Controlled type [...] hyperlipidemia type (CMS/HCC) 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) Controlled type 2 diabetes mellitus without complication, without long-term current use of insulin Neck pain on left side- Primary Left hip pain Pain in joint, pelvic region and thigh Osteoarthritis, unspecified osteoarthritis type, unspecified site Stress incontinence of urine documented in this encounter [facility]Evaluation note* Diagnosis Primary hypertension (CMS/HCC)- Primary Unspecified essential hypertension 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) Controlled type [...] hyperlipidemia type (CMS/HCC) 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) Controlled type 2 diabetes mellitus without complication, without long-term current use of insulin 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 documented in this encounter [facility]* Diagnosis Primary hypertension (CMS/HCC)- Primary Unspecified essential hypertension 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) Controlled type [...] hyperlipidemia type (CMS/HCC) 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) Controlled type 2 diabetes mellitus without complication, without long-term current use of insulin Primary osteoarthritis of left hip- Primary Neck pain on left side Left hip pain Pain in joint, pelvic region and thigh Spondylosis of cervical region without myelopathy or radiculopathy Rheumatoid arthritis, unspecified documented in this encounter [facility] note* Diagnosis 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 Lung nodules Other nonspecific abnormal finding of lung field Stage 3 chronic kidney disease, unspecified whether stage 3a or 3b CKD ([facility]) [facility] Diagnosis Acquired hypothyroidism- Primary Unspecified hypothyroidism [facility] Diagnosis Primary hypertension (CMS/HCC)- Primary Unspecified essential hypertension 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) Controlled type [...] hyperlipidemia type (CMS/HCC) 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) Controlled type 2 diabetes mellitus without complication, without long-term current use of insulin 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 Effusion of left knee Acute pain of left knee 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, without long-term current use of insulin (CMS/HCC) documented in this encounter [facility]Evaluation note* Diagnosis Primary hypertension- Primary Unspecified essential hypertension 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 Controlled type 2 [...] unspecified hyperlipidemia type 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 Controlled type 2 diabetes mellitus without complication, without long-term current use of insulin (HCC) Left hip pain- Primary Pain in joint, pelvic region and thigh Effusion of left knee Acute pain of left knee documented in this encounter [facility] HealthcareEvaluation note* Diagnosis Primary hypertension- Primary Unspecified essential hypertension 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 Controlled type 2 [...] unspecified hyperlipidemia type 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 Controlled type 2 diabetes mellitus without complication, without long-term current use of insulin (HCC) Left lumbar radiculitis- Primary Left hip pain Pain in joint, pelvic region and thigh documented in this encounter [facility]Evaluation note* Diagnosis Primary hypertension- Primary Unspecified essential hypertension 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 Controlled type 2 [...] unspecified hyperlipidemia type 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 Controlled type 2 diabetes mellitus without complication, without long-term current use of insulin (HCC) 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 documented in this encounter [facility]* Diagnosis Primary hypertension- Primary Unspecified essential hypertension 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 Controlled type 2 [...] unspecified hyperlipidemia type 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 Controlled type 2 diabetes mellitus without complication, without long-term current use of insulin (HCC) Primary osteoarthritis of left hip- Primary Pseudogout involving multiple joints Primary hypertension Unspecified essential hypertension 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, without long-term current use of insulin (HCC) Moderate mixed hyperlipidemia not requiring statin therapy documented in this encounter [facility] note* Diagnosis Primary hypertension- Primary Unspecified essential hypertension 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 Controlled type 2 [...] unspecified hyperlipidemia type 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 Controlled type 2 diabetes mellitus without complication, without long-term current use of insulin (HCC) 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 documented in this encounter [facility]Evaluation note* Diagnosis Primary hypertension- Primary Unspecified essential hypertension 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 Controlled type 2 [...] unspecified hyperlipidemia type 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 Controlled type 2 diabetes mellitus without complication, without long-term current use of insulin (HCC) Left hip pain- Primary Pain in joint, pelvic region and thigh Pseudogout involving multiple joints Primary osteoarthritis of left hip documented in this encounter [facility] Discharge instructions No data available for this section [facility] [place] Progress note No data available for this section [facility] [place] Reason for referral (narrative)* Diagnostic Procedure Only (Routine) - AuthorizedSpecialtyDiagnoses / ProceduresReferred By Contact Referred To ContactMOLECULAR & FUNCTIONAL IMAGING Diagnoses Cancer of the base of tongue (HCC) Procedures NM PET/CT SKULL-THIGH SUBSEQUENT PET IMAGING CT ATTENUATION SKULL BASE MID-THIGH Yordan Feliz MD [address] [place] [address] [place] [address] Molecular & Functional Imaging [address] [place] [address] Referral IDStatusReasonStart DateExpiration DateVisits RequestedVisits [id number] Auto-Generated Referral [facility] for referral (narrative)* Diagnostic Procedure Only (Routine) - ClosedSpecialtyDiagnoses / ProceduresReferred By ContactReferred To ContactMOLECULAR & FUNCTIONAL IMAGING Diagnoses Cancer of the base of tongue (HCC) Procedures NM PET/CT SKULL-THIGH SUBSEQUENT PET IMAGING CT ATTENUATION SKULL BASE MID-THIGH Yordan Feliz MD [address] [place] [address] [place] [address] Molecular & Functional Imaging [address] [place] [address] Referral IDStatusReasonStart DateExpiration DateVisits RequestedVisits [id number] Auto-Generated Referral [facility] for referral (narrative)* Diagnostic Procedure Only (Routine) - ClosedSpecialtyDiagnoses / ProceduresReferred By ContactReferred To ContactMOLECULAR & FUNCTIONAL IMAGING Diagnoses Tongue cancer (HCC) Head and neck cancer (HCC) Procedures NM PET/CT SKULL-THIGH INITIAL PET IMAGING CT ATTENUATION SKULL BASE MID-THIGH Yordan Feliz MD [address] [place] [address] [place] [address] Molecular & Functional Imaging [address] [place] [address] Referral IDStatusReasonStart DateExpiration DateVisits RequestedVisits [id number] Auto-Generated Referral / [facility] Summary Purpose Family History No Family History Records FoundNo Family History Records FoundNo Family History Records FoundNo Family History Records FoundNo Family History Records Found Advance Directives Advance Directive Response Recorded Date/ Time Advance Directives No January 13 1:22pm Reason for Referral SpecialtyDiagnoses / ProceduresReferred By ContactReferred To ContactCT IMAGING Diagnoses Cancer of the base of tongue (HCC) Mass of right lung Procedures CT CHEST W IVCON DIAGNOSTIC COMPUTED TOMOGRAPHY THORAX W/CONTRAST John England MD [address] [place] [address] [place] [address] Ct [facility] [place] [address] Referral IDStatusReasonStart DateExpiration DateVisits RequestedVisits [id number] Auto-Generated Referral /[id number] / ProceduresReferred By ContactReferred To ContactCT IMAGING Diagnoses Lung nodules Procedures CT CHEST W IVCON DIAGNOSTIC COMPUTED TOMOGRAPHY THORAX W/CONTRAST John England MD [address] [place] [address] [place] [address] Ct [facility] Referral IDStatusReasonStart DateExpiration DateVisits RequestedVisits [id number] Auto-Generated Referral /[id number] / ProceduresReferred By ContactReferred To Contact Diagnoses Tongue cancer (HCC) Procedures CT SIM PLANNING RADIATION ONCOLOGY THER RAD SIMULAJ-AIDED FIELD SETTING COMPLEX Yordan Feliz MD [address] [place] [address] [place] [address] Referral IDStatusReasonStart DateExpiration DateVisits RequestedVisits [id number] Review PCP Requested Referral [id number] / ProceduresReferred By ContactReferred To ContactDentistry Diagnoses Tongue cancer (HCC) Procedures CONSULT TO DENTISTRY OFFICE/OUTPATIENT [facility] 60-74 MINUTES Travis Dave MD [address] [place] [address] [place] [address] Referral IDStatusReasonStart DateExpiration DateVisits RequestedVisits [id number] Review PCP Requested Referral [id number] / ProceduresReferred By ContactReferred To ContactOncology Diagnoses Head and neck cancer (HCC) Procedures CONSULT TO ONCOLOGY OFFICE/OUTPATIENT [facility] 60-74 MINUTES Yordan Feliz MD [address] [place] [address] [place] [address] Referral IDStatusReasonStart DateExpiration DateVisits RequestedVisits [id number] PCP Requested Referral [id number] / ProceduresReferred By ContactReferred To ContactMOLECULAR & FUNCTIONAL IMAGING Diagnoses Tongue cancer (HCC) Head and neck cancer (HCC) Procedures NM PET/CT SKULL-THIGH INITIAL PET IMAGING CT ATTENUATION SKULL BASE MID-THIGH Yordan Feliz MD [address] [place] [address] [place] [address] Molecular & Functional Imaging [address] [place] [address] Referral IDStatusReasonStart DateExpiration DateVisits RequestedVisits [id number] Review Auto-Generated Referral Medications Administered Section Medication OrderMAR ActionAction DateDoseRateSite CISplatin 79.6 mg in NaCl 0.9% 1,129.6 mL (PLATINOL) 79.6 mg (40 mg/m2 1.99 m2 Treatment Plan BSA from Recorded weight), INTRAVENOUS, Administer over 1 Hours, ONCE, 1 dose, On Sat09/03/22 at 1130, Approx Total Volume: mL EXP:_09/04/2022@1745Hazardous Chemotherapy Drug: Use appropriate PPE. Antineoplastic Vesicant for concentrations greater than 0.4 mg/mL - Antineoplastic Irritant for concentrations less than 0.4 mg/mL. Protect from Light. New Bag/Syringe/Bvsceg4109/03/2022 1:09 PM EST79.6 mg dexAMETHasone 10 mg/NS 50 mL (PYXIS) 10 mg ivpb (DECADRON) 10 mg, INTRAVENOUS, ONCE, 1 dose, On Sat09/03/22 at 1130, Refrigerate. New Bag/Syringe/Qhzgva0009/03/2022 11:50 AM EST10 mg fosaprepitant 150 mg in NaCl 0.9% 250 mL (EMEND) 150 mg, INTRAVENOUS, Administer over 30 Minutes, ONCE, 1 dose, On Sat09/03/22 at 1130, Approximate Total Volume = 280 mL New Bag/Syringe/Wpeldl6309/03/2022 12:16 PM PRJ357 mg furosemide 40 mg injection (LASIX) 40 mg, INTRAVENOUS, ONCE, 1 dose, On Sat09/03/22 at 1130 Given09/03/2022 2:31 PM EST40 mg magnesium sulfate 2 g in NaCl 0.9% 1,000 mL INTRAVENOUS, at 1,054 mL/hr, Administer over 1 Hours, ONCE, 1 dose, On Sat09/03/22 at 1130, TV 1054ml New Bag/Syringe/Cbdwsj1709/03/2022 2:35 PM THQ4500 mL/hr NaCl 0.9% iv bolus 1,000 mL 1,000 mL, INTRAVENOUS, at 999 mL/hr, Administer over 1 Hours, ONCE, 1 dose, On Sat09/03/22 at 1130 New Bag/Syringe/Krxjaa6809/03/2022 11:41 AM EST1,000 mL999 mL/hr ondansetron (PF) 8 mg injection (ZOFRAN) 8 mg, INTRAVENOUS, ONCE, 1 dose, On Sat09/03/22 at 1130 Given09/03/2022 11:50 AM EST8 mgMedication OrderMAR ActionAction DateDoseRate Site CISplatin 79.6 mg in NaCl 0.9% 1,129.6 mL (PLATINOL) 79.6 mg (40 mg/m2 1.99 m2 Treatment Plan BSA from Recorded weight), INTRAVENOUS, Administer over 1 Hours, ONCE, 1 dose, On Sat09/10/22 at 1400, Approx Total Volume: mL EXP:0600 09/12/22 Hazardous Chemotherapy Drug: Use appropriate PPE. Antineoplastic Vesicant for concentrations greater than0.4 mg/mL - Antineoplastic Irritant for concentrations less than 0.4 mg/mL. Protect from Light. New Bag/Syringe/Oxgskk9409/10/2022 2:12 PM EST79.6 mg dexAMETHasone 10 mg/NS 50 mL (PYXIS) 10 mg ivpb (DECADRON) 10 mg, INTRAVENOUS, ONCE, 1 dose, On Sat09/10/22 at 1300, Refrigerate. New Bag/Syringe/Slnhjw6909/10/2022 12:56 PM EST10 mg fosaprepitant 150 mg in NaCl 0.9% 250 mL (EMEND) 150 mg, INTRAVENOUS, Administer over 30 Minutes, ONCE, 1 dose, On Sat09/10/22 at 1300, Approximate Total Volume = 280 mL New Bag/Syringe/Qbvrki7309/10/2022 1:20 PM GRV665 mg furosemide 40 mg injection (LASIX) 40 mg, INTRAVENOUS, ONCE, 1 dose, On Sat09/10/22 at 1300 Given09/10/2022 3:33 PM EST40 mg magnesium sulfate iv piggyback in sterile [...] and Hematology/Oncology 4) Eclampsia or Preeclampsia New Bag/Syringe/Plbnzx6309/10/2022 3:37 PM EST2 g50 mL/hr NaCl 0.9% 1,000 mL INTRAVENOUS, at 999 mL/hr, Administer over 1 Hours, ONCE, 1 dose, On Sat09/10/22 at 1400 New Bag/Syringe/Kdmsap5209/10/2022 3:34 PM GNV484 mL/hr NaCl 0.9% iv bolus 1,000 mL 1,000 mL, INTRAVENOUS, at 999 mL/hr, Administer over 1 Hours, ONCE, 1 dose, On Sat09/10/22 at 1400 New Bag/Syringe/Mmtfct1209/10/2022 12:38 PM EST1,000 mL999 mL/hr ondansetron (PF) 8 mg injection (ZOFRAN) 8 mg, INTRAVENOUS, ONCE, 1 dose, On Sat09/10/22 at 1300 Given09/10/2022 12:53 PM EST8 mgMedication OrderMAR ActionAction DateDoseRate Site CISplatin 79.6 mg in NaCl 0.9% [...] than 0.4 mg/mL. Protect from Light. New Bag/Syringe/Olmsww4209/17/2022 1:05 PM EDT79.6 mg dexAMETHasone 10 mg/NS 50 mL (PYXIS) 10 mg ivpb (DECADRON) 10 mg, INTRAVENOUS, ONCE, 1 dose, On Sat09/17/22 at 1230, Refrigerate. New Bag/Syringe/Tqakpw7809/17/2022 12:08 PM EDT10 mg fosaprepitant 150 mg in NaCl 0.9% 250 mL (EMEND) 150 mg, INTRAVENOUS, Administer over 30 Minutes, ONCE, 1 dose, On Sat09/17/22 at 1230, Approximate Total Volume = 280 mL New Bag/Syringe/Avyble3809/17/2022 12:29 PM QKA349 mg furosemide 40 mg injection (LASIX) 40 mg, INTRAVENOUS, ONCE, 1 dose, On Sat09/17/22 at 1230 Given09/17/2022 2:53 PM EDT40 mg magnesium sulfate iv piggyback in sterile [...] rate of GREATER than 2 grams/hr if necessary:1) Adult and Pediatric Asthma Exacerbations 2) [place] 3) Pediatric BMT and Hematology/Oncology 4) Eclampsia or Preeclampsia New Bag/Syringe/Vpeekz9109/17/2022 2:25 PM EDT2 g50 mL/hr NaCl 0.9% 1,000 mL INTRAVENOUS, at 999 mL/hr, Administer over 1 Hours, ONCE, 1 dose, On Sat09/17/22 at 1230 New Bag/Syringe/Jkkcdc8509/17/2022 2:26 PM YRT034 mL/hr NaCl 0.9% iv bolus 1,000 mL 1,000 mL, INTRAVENOUS, at 999 mL/hr, Administer over 1 Hours, ONCE, 1 dose, On Sat09/17/22 at 1230 New Bag/Syringe/Hugope5609/17/2022 11:20 AM EDT1,000 mL999 mL/hr ondansetron (PF) 8 mg injection (ZOFRAN) 8 mg, INTRAVENOUS, ONCE, 1 dose, On Sat09/17/22 at 1230 Given09/17/2022 12:08 PM EDT8 mgMedication OrderMAR ActionAction DateDoseRate Site CISplatin 79.6 mg in NaCl 0.9% [...] than 0.4 mg/mL. Protect from Light. New Bag/Syringe/Wixeei6510/01/2022 1:16 PM EDT79.6 mg dexAMETHasone 10 mg/NS 50 mL (PYXIS) 10 mg ivpb (DECADRON) 10 mg, INTRAVENOUS, ONCE, 1 dose, On Sat10/01/22 at 1230, Refrigerate. New Bag/Syringe/Uxuckk3810/01/2022 12:16 PM EDT10 mg fosaprepitant 150 mg in NaCl 0.9% 250 mL (EMEND) 150 mg, INTRAVENOUS, Administer over 30 Minutes, ONCE, 1 dose, On Sat10/01/22 at 1230, Approximate Total Volume = 280 mL New Bag/Syringe/Gjlwzk3210/01/2022 12:43 PM QED990 mg furosemide 40 mg injection (LASIX) 40 mg, INTRAVENOUS, ONCE, 1 dose, On Sat10/01/22 at 1430 Given10/01/2022 2:37 PM EDT40 mg magnesium sulfate iv piggyback in sterile [...] rate of GREATER than 2 grams/hr if necessary:1) Adult and Pediatric Asthma Exacerbations 2) [place] 3) Pediatric BMT and Hematology/Oncology 4) Eclampsia or Preeclampsia New Bag/Syringe/Knfmgr0510/01/2022 2:40 PM EDT2 g50 mL/hr NaCl 0.9% 1,000 mL INTRAVENOUS, at 999 mL/hr, Administer over 1 Hours, ONCE, 1 dose, On Sat10/01/22 at 1230 New Bag/Syringe/Veiwig3010/01/2022 2:35 PM NMV314 mL/hr NaCl 0.9% iv bolus 1,000 mL 1,000 mL, INTRAVENOUS, at 999 mL/hr, Administer over 1 Hours, ONCE, 1 dose, On Sat10/01/22 at 1230 New Bag/Syringe/Dodmet4910/01/2022 11:25 AM EDT1,000 mL999 mL/hr ondansetron (PF) 8 mg injection (ZOFRAN) 8 mg, INTRAVENOUS, ONCE, 1 dose, On Sat10/01/22 at 1230 Given10/01/2022 12:15 PM EDT8 mgMedication OrderMAR ActionAction DateDoseRate Site CISplatin 79.6 mg in NaCl 0.9% 1,129.6 mL (PLATINOL) 79.6 mg (40 mg/m2 1.99 m2 Treatment Plan BSA from Recorded weight), INTRAVENOUS, Administer over 1 Hours, ONCE, 1 dose, On Sat10/08/22 at 1230, Approx Total Volume: EXP: 1810 10/09/22 Hazardous Chemotherapy Drug: Use appropriate PPE. Antineoplastic Vesicant for concentrations greater than 0.4 mg/mL - A ntineoplastic Irritant for concentrations less than 0.4 mg/mL. Protect from Light. New Bag/Syringe/Tadryv7210/08/2022 1:36 PM EDT79.6 mg dexAMETHasone 10 mg/NS 50 mL (PYXIS) 10 mg ivpb (DECADRON) 10 mg, INTRAVENOUS, ONCE, 1 dose, On Sat10/08/22 at 1130, Refrigerate. New Bag/Syringe/Zcvpvy3210/08/2022 1:13 PM EDT10 mg fosaprepitant 150 mg in NaCl 0.9% 250 mL (EMEND) 150 mg, INTRAVENOUS, Administer over 30 Minutes, ONCE, 1 dose, On Sat10/08/22 at 1130, Approximate Total Volume = 280 mL New Bag/Syringe/Naiidc2210/08/2022 12:38 PM BLS793 mg furosemide 40 mg injection (LASIX) 40 mg, INTRAVENOUS, ONCE, 1 dose, On Sat10/08/22 at 1130 Given10/08/2022 3:47 PM EDT40 mg magnesium sulfate iv piggyback in sterile [...] and Hematology/Oncology 4) Eclampsia or Preeclampsia New Bag/Syringe/Sayuia4110/08/2022 3:13 PM EDT2 g50 mL/hr NaCl 0.9% 1,000 mL INTRAVENOUS, at 999 mL/hr, Administer over 1 Hours, ONCE, 1 dose, On Sat10/08/22 at 1230 New Bag/Syringe/Vygrxj4510/08/2022 2:41 PM ASJ293 mL/hr NaCl 0.9% iv bolus 1,000 mL 1,000 mL, INTRAVENOUS, at 999 mL/hr, Administer over 1 Hours, ONCE, 1 dose, On Sat10/08/22 at 1130 New Bag/Syringe/Vqyehm9510/08/2022 11:41 AM EDT1,000 mL999 mL/hr ondansetron (PF) 8 mg injection (ZOFRAN) 8 mg, INTRAVENOUS, ONCE, 1 dose, On Sat10/08/22 at 1130 Given10/08/2022 1:13 PM EDT8 mgMedication OrderMAR ActionAction DateDoseRateSite NaCl 0.9% 500 mL INTRAVENOUS, at 999 mL/hr, Administer over 0.5 Hours, ONCE, 1 dose, On Sat10/31/22 at 1600 New Bag/Syringe/Fnmfex3510/31/2022 2:44 PM NJE456 mL/hr Chief Complaint and Reason for Visit Chief Complaint Plugged ears Chief Complaint Plugged ears Bug bite on R arm Additional Source Comments Patient Care team informatio n (unrecognized section and content) Team MemberRelationshipSpecialtyStart DateEnd Date Mannie Nelson MD [address] [place] [address] PCP - GeneralFamily Medicine11/16/11Team MemberRelationshipSpecialtyStart DateEnd Date Mannie Nelson MD [address] [place] [address] PCP - Generalmily Medicine11/16/11Team MemberRelationshipSpecialtyStart DateEnd Date Mannie Nelson MD [address] [place] [address] PCP - Generalmily Medicine11/16/11Team MemberRelationshipSpecialtyStart DateEnd Date Mannie Nelson MD [address] [place] [address] PCP - Generalmi Medicine11/16/11Te MemberRelationshipSpecialtyStart DateEnd Date Mannie Nelson MD [address] [place] [address] PCP - Generalmi Medicine11/16/11 Dee Gil, RD [address] [facility] [place] [address] Registered DietitianNutrition08/20/22Te MemberRelationshipSpecialtyStart Date End Date Mannie Nelson MD [address] [place] [address] PCP - Generalmily Medicine11/16/11 Dee Gil, RD [address] [place] [address] Registered DietitianNutrition08/20/22 John England MD [address] [place] [address] PhysicianHematology/Oncology08/21/22 Natalie Cadena, LIDDING MACHINE OPERATOR.ARTIST AND REPERTOIRE MANAGER [address] [place] [address] Nurse PractitionerHematology/Oncology08/21/22 Rafael Bob, RN [address] [place] [address] Specialty Care CoordinatorHematology/Oncology08/21/22 Yordan Feliz MD [address] [place] [address] PhysicianRadiation Oncology08/21/22Team MemberRelationshipSpecialtyStart DateEnd Date Mannie Nelson MD [address] [facility] [address] PCP - Generalmi Medicine11/16/11 Dee Gil, KARLOS [address] [place] [address] Registered DietitianNutrition08/20/22 John England MD [address] [place] [address] PhysicianHematology/Oncology08/21/22 Natalie Cadena, LIDDING MACHINE OPERATOR.ARTIST AND REPERTOIRE MANAGER [address] [place] [address] Nurse PractitionerHematology/Oncology08/21/22 Rafael Bob, [place] [address] [place] [address] Specialty Care CoordinatorHematology/Oncology08/21/22 Yordan Feliz MD [address] [place] [address] PhysicianRadiation Oncology08/21/22Team MemberRelationshipSpecialtyStart DateEnd Date Mannie Nelson MD [address] [facility] [address] [facility]/16/11 Dee Gil, RD [address] [place] [address] Registered DietitianNutrition08/20/22 John England MD [address] [place] [address] PhysicianHematology/Oncology08/21/22 Natalie Cadena, LIDDING MACHINE OPERATOR.ARTIST AND REPERTOIRE MANAGER [address] [place] [address] Nurse PractitionerHematology/Oncology08/21/22 Rafael Bob, [place] [address] [place] [address] Specialty Care CoordinatorHematology/Oncology08/21/22 Yordan Feliz MD [address] [place] [address] PhysicianRadiation Oncology08/21/22Te MemberRelationshipSpecialtyStart DateEnd Date Mannie Nelson MD [address] [place] [facility] [address] [facility] - [facility]11/16/11 Dee Gil, RD [address] [place] [address] Registered DietitianNutrition08/20/22 John England MD [address] [place] [address] PhysicianHematology/Oncology08/21/22 Natalie Cadena, LIDDING MACHINE OPERATOR.ARTIST AND REPERTOIRE MANAGER [address] [facility] [place] [address] Nurse PractitionerHematology/Oncology08/21/22 Rafael Bob, [place] [address] [place] [address] Specialty Care CoordinatorHematology/Oncology08/21/22 Yordan Feliz MD [address] [place] [address] [place] [address] PhysicianRadiation Oncology08/21/22Team MemberRelationshipSpecialtyStart DateEnd Date Mannie Nelson MD [address] [place] [address] [facility] - [facility]11/16/11 Dee Gil, KARLOS [address] [place] [address] Registered DietitianNutrition08/20/22 John England MD [address] [place] [address] [place] [address] PhysicianHematology/Oncology08/21/22 Natalie Cadena, LIDDING MACHINE OPERATOR.[facility] [address] [place] [address] Nurse PractitionerHematology/Oncology08/21/22 Rafael Bob, [place] [address] [place] [address] [place] [address] Specialty Care CoordinatorHematology/Oncology08/21/22 Yordan Feliz MD [address] [place] [address] [place] [address] PhysicianRadiation Oncology08/21/22Team MemberRelationshipSpecialtyStart DateEnd Date Mannie Nelson MD [address] [place] [address] PCP - GeneralFamily Medicine11/16/11 Dee Gil, KARLOS [address] [place] [address] Registered DietitianNutrition08/20/22 John England MD [address] [place] [address] PhysicianHematology/Oncology08/21/22 Natalie Cadena, LIDDING MACHINE OPERATOR.ARTIST AND REPERTOIRE MANAGER [address] [place] [address] Nurse PractitionerHematology/Oncology08/21/22 Rafael Bob, RN [address] [place] [address] Specialty Care CoordinatorHematology/Oncology08/21/22 Yordan Feliz MD [address] [place] [address] PhysicianRadiation Oncology08/21/22Team MemberRelationshipSpecialtyStart DateEnd Date Mannie Nelson MD [address] [place] [facility] [address] PCP - Generalmily Medicine11/16/11Team MemberRelationshipSpecialtyStart DateEnd Date Mannie Nelson MD [address] [place] [facility] [address] PCP - Generalmily Medicine11/16/[address] [place] [address] Registered DietitianNutrition08/20/22 John England MD [address] [place] [address] PhysicianHematology/Oncology08/21/22 Natalie Cadena, LIDDING MACHINE OPERATOR.ARTIST AND REPERTOIRE MANAGER [address] [place] [address] Nurse PractitionerHematology/Oncology08/21/22 Rafael Bob, RN [address] [place] [address] Specialty Care CoordinatorHematology/Oncology08/21/22 Yordan Feliz MD [address] [place] [address] PhysicianRadiation Oncology08/21/22Team MemberRelationshipSpecialtyStart DateEnd Date Mannie Nelson MD [address] [facility] [address] PCP - Generalmily Medicine11/16/11 Dee Gil, KARLOS [address] [place] [address] Registered DietitianNutrition08/20/22 John England MD [address] [place] [address] PhysicianHematology/Oncology08/21/22 Natalie Cadena, LIDDING MACHINE OPERATOR.ARTIST AND REPERTOIRE MANAGER [address] [place] [address] Nurse PractitionerHematology/Oncology08/21/22 Rafael Bob, [place] [address] [place] [address] Specialty Care CoordinatorHematology/Oncology08/21/22 Yordan Feliz MD [address] [place] [address] PhysicianRadiation Oncology08/21/22Team MemberRelationshipSpecialtyStart DateEnd Date Mannie Nelson MD [address] [place] [address] PCP - [facility] Medicine11/16/11 Dee Gil, RD [address] [place] [address] Registered DietitianNutrition08/20/22 John England MD [address] [place] [address] PhysicianHematology/Oncology08/21/22 Natalie Cadena, LIDDING MACHINE OPERATOR.ARTIST AND REPERTOIRE MANAGER [address] [place] [address] Nurse PractitionerHematology/Oncology08/21/22 Rafael Bob, [place] [address] [place] [address] Specialty Care CoordinatorHematology/Oncology08/21/22 Yordan Feliz MD [address] [place] [address] PhysicianRadiation Oncology08/21/22Team MemberRelationshipSpecialtyStart DateEnd Date Mannie Nelson MD [address] [place] [address] [facility]CP - [facility]11/16/11 Dee Gil, RD [address] [place] [address] Registered DietitianNutrition08/20/22 John England MD [address] [place] [address] PhysicianHematology/Oncology08/21/22 Natalie Cadena, LIDDING MACHINE OPERATOR.ARTIST AND REPERTOIRE MANAGER [address] [place] [address] Nurse PractitionerHematology/Oncology08/21/22 Rafael Bob, [place] [address] [place] [address] Specialty Care CoordinatorHematology/Oncology08/21/22 Yordan Feliz MD [address] [place] [address] [place] [address] PhysicianRadiation Oncology08/21/22Team MemberRelationshipSpecialtyStart DateEnd Date Mannie Nelson MD [address] [place] [address] [facility] - [facility]11/16/[address] [place] [address] Registered DietitianNutrition08/20/22 John England MD [address] [place] [address] PhysicianHematology/Oncology08/21/22 Natalie Cadena, LIDDING MACHINE OPERATOR.[facility] [address] [place] [address] Nurse PractitionerHematology/Oncology08/21/22 Rafael Bob, [place] [address] [place] [address] [place] [address] Specialty Care CoordinatorHematology/Oncology08/21/22 Yordan Feliz MD [address] [place] [address] PhysicianRadiation Oncology08/21/22 Marysol Purvis LSW Social Worker09/07/22Team MemberRelationshipSpecialtyStart DateEnd Date Mannie Nelson MD [address] [facility] [address] PCP - GeneralFamily Medicine11/16/11 Dee Gil, RD [address] [place] [address] Registered DietitianNutrition08/20/22 John England MD [address] [place] [address] PhysicianHematology/Oncology08/21/22 Natalie Cadena, LIDDING MACHINE OPERATOR.ARTIST AND REPERTOIRE MANAGER [address] [place] [address] Nurse PractitionerHematology/Oncology08/21/22 Rafael Bob, [place] [address] [place] [address] Specialty Care CoordinatorHematology/Oncology08/21/22 Yordan Feliz MD [address] [place] [address] PhysicianRadiation Oncology08/21/22 Marysol Purvis LSW Social Worker09/07/22Team MemberRelationshipSpecialtyStart DateEnd Date Mannie Nelson MD [address] [facility] [address] PCP - GeneralFamily Medicine11/16/11 Dee Gil, KARLOS [address] [place] [address] Registered DietitianNutrition08/20/22 John England MD [address] [place] [address] PhysicianHematology/Oncology08/21/22 Natalie Cadena, LIDDING MACHINE OPERATOR.ARTIST AND REPERTOIRE MANAGER [address] [place] [address] Nurse PractitionerHematology/Oncology08/21/22 Rafael Bob, [place] [address] [place] [address] Specialty Care CoordinatorHematology/Oncology08/21/22 Yordan Feliz MD [address] [place] [address] PhysicianRadiation Oncology08/21/22 Marysol Purvis, [facility] Social Worker09/07/22Team MemberRelationshipSpecialtyStart DateEnd Date Mannie Nelson MD [address] [place] [address] [facility] - [facility]11/16/11 Dee Gil, RD [address] [place] [address] Registered DietitianNutrition08/20/22 Jonh England MD [address] [place] [address] PhysicianHematology/Oncology08/21/22 Natalie Cadena, LIDDING MACHINE OPERATOR.ARTIST AND REPERTOIRE MANAGER [address] [place] [address] Nurse PractitionerHematology/Oncology08/21/22 Rafael Bob, [place] [address] [place] [address] Specialty Care CoordinatorHematology/Oncology08/21/22 Yordan Feliz MD [address] [place] [address] PhysicianRadiation Oncology08/21/22 Marysol Purvis, DATA ANALYSIS ASSISTANT Social Worker09/07/22Team MemberRelationshipSpecialtyStart DateEnd Date Mannie Nelson MD [address] [facility] [address] PCP - GeneralFamily Medicine11/16/11 Dee Gil, RD [address] [place] [address] Registered DietitianNutrition08/20/22 John England MD [address] [place] [address] PhysicianHematology/Oncology08/21/22 Natalie Cadena, LIDDING MACHINE OPERATOR.ARTIST AND REPERTOIRE MANAGER [address] [place] [address] Nurse PractitionerHematology/Oncology08/21/22 Rafael Bob, [place] [address] [place] [address] Specialty Care CoordinatorHematology/Oncology08/21/22 Yordan Feliz MD [address] [place] [address] PhysicianRadiation Oncology08/21/22 Marysol Purvis LSW Social Worker09/07/22Team MemberRelationshipSpecialtyStart DateEnd Date Mannie Nelson MD [address] [place] [facility] [address] PCP - [facility]11/16/11 Dee Gil, RD [address] [place] [address] Registered DietitianNutrition08/20/22 John England MD [address] [place] [address] PhysicianHematology/Oncology08/21/22 Natalie Cadena, LIDDING MACHINE OPERATOR.ARTIST AND REPERTOIRE MANAGER [address] [place] [address] Nurse PractitionerHematology/Oncology08/21/22 Rafael Bob, [place] [address] [place] [address] Specialty Care CoordinatorHematology/Oncology08/21/22 Yordan Feilz MD [address] [place] [address] PhysicianRadiation Oncology08/21/22 Marysol Purvis LSW Social Worker09/07/22Team MemberRelationshipSpecialtyStart DateEnd Date Mannie Nelson MD [address] [place] [address] PCP - [facility]11/16/11 Dee Gil, KARLOS [address] [place] [address] Registered DietitianNutrition08/20/22 John England MD [address] [place] [address] PhysicianHematology/Oncology08/21/22 Natalie Cadena, LIDDING MACHINE OPERATOR.ARTIST AND REPERTOIRE MANAGER [address] [place] [address] Nurse PractitionerHematology/Oncology08/21/22 Rafael Bob, [place] [address] [place] [address] Specialty Care CoordinatorHematology/Oncology08/21/22 Yordan Feliz MD [address] [place] [address] PhysicianRadiation Oncology08/21/22 Marysol Purvis, DATA ANALYSIS ASSISTANT Social Worker09/07/22Team MemberRelationshipSpecialtyStart DateEnd Date Mannie Nelson MD [address] [place] [facility] [address] PCP - GeneralFamily Medicine11/16/11 Dee Gil, RD [address] [place] [address] Registered DietitianNutrition08/20/22 John England MD [address] [place] [address] PhysicianHematology/Oncology08/21/22 Natalie Cadena, LIDDING MACHINE OPERATOR.ARTIST AND REPERTOIRE MANAGER [address] [place] [address] Nurse PractitionerHematology/Oncology08/21/22 Rafael Bob, [place] [address] [place] [address] Specialty Care CoordinatorHematology/Oncology08/21/22 Yordan Feliz MD [address] [place] [address] PhysicianRadiation Oncology08/21/22 Marysol Purvis LSW Social Worker09/07/22Team MemberRelationshipSpecialtyStart DateEnd Date aMnnie Nelson MD [address] [place] [facility] [address] PCP - [facility]11/16/11 Dee Gil, RD [address] [place] [address] Registered DietitianNutrition08/20/22 John England MD [address] [place] [address] PhysicianHematology/Oncology08/21/22 Natalie Cadena, LIDDING MACHINE OPERATOR.ARTIST AND REPERTOIRE MANAGER [address] [place] [address] Nurse PractitionerHematology/Oncology08/21/22 Rafael Bob, [place] [address] [place] [address] Specialty Care CoordinatorHematology/Oncology08/21/22 Yordan Feliz MD [address] [place] [address] PhysicianRadiation Oncology08/21/22 Marysol Purvis, ISH Social Worker09/07/22Team MemberRelationshipSpecialtyStart DateEnd Date Mannie Nelson MD [address] [place] [facility] [place] [address] PCP - Generalmily Medicine11/16/11 Dee Gil, KARLOS [address] [place] [address] Registered DietitianNutrition08/20/22 John England MD [address] [place] [address] PhysicianHematology/Oncology08/21/22 Natalie Cadena, LIDDING MACHINE OPERATOR.ARTIST AND REPERTOIRE MANAGER [address] [place] [address] Nurse PractitionerHematology/Oncology08/21/22 Rafael Bob, [place] [address] [place] [address] Specialty Care CoordinatorHematology/Oncology08/21/22 Yordan Feliz MD [address] [place] [address] PhysicianRadiation Oncology08/21/22 Marysol Purvis, ISH Social Worker09/07/22Team MemberRelationshipSpecialtyStart DateEnd Date Mannie Nelson MD [address] [place] [facility] [address] PCP - GeneralFamily Medicine11/16/11 Dee Gil, RD [address] [place] [address] Registered DietitianNutrition08/20/22 John England MD [address] [place] [address] PhysicianHematology/Oncology08/21/22 Natalie Cadena, LIDDING MACHINE OPERATOR.ARTIST AND REPERTOIRE MANAGER [address] [place] [address] Nurse PractitionerHematology/Oncology08/21/22 Rafael Bob, [place] [address] [place] [address] Specialty Care CoordinatorHematology/Oncology08/21/22 Yordan Feliz MD [address] [place] [address] PhysicianRadiation Oncology08/21/22 Marysol Purvis LSW Social Worker09/07/22Team MemberRelationshipSpecialtyStart DateEnd Date Mannie Nelson MD [address] [place] [facility] [address] PCP - GeneralFamily Medicine11/16/11 Dee Gil, RD [address] [place] [address] Registered DietitianNutrition08/20/22 John England MD [address] [place] [address] PhysicianHematology/Oncology08/21/22 Natalie Cadena, LIDDING MACHINE OPERATOR.ARTIST AND REPERTOIRE MANAGER [address] [place], [place] [address] Nurse PractitionerHematology/Oncology08/21/22 Rafael Bob, RN [address] [place] [address] Specialty Care CoordinatorHematology/Oncology08/21/22 Yordan Feliz MD [address] [place] [address] [place] [address] PhysicianRadiation Oncology08/21/22 Marysol Purvis LSW Social Worker09/07/22Team MemberRelationshipSpecialtyStart DateEnd Date Mannie Nelson MD [address] [place] [address] PCP - GeneralFamily Medicine11/16/11 Dee Gil, RD [address] [place] [address] Registered DietitianNutrition08/20/22 John England MD [address] [place] [address] PhysicianHematology/Oncology08/21/22 Natalie Cadena, LIDDING MACHINE OPERATOR.[facility] [address] [place] [address] Nurse PractitionerHematology/Oncology08/21/22 Rafael Bob, RN [address] [place] [address] Specialty Care CoordinatorHematology/Oncology08/21/22 Yordan Feliz MD [address] [place] [address] PhysicianRadiation Oncology08/21/22 Marysol Purvis LSW Social Worker09/07/22Team MemberRelationshipSpecialtyStart DateEnd Date Mannie Nelson MD [address] [place] [facility] [address] PCP - Generalmily Medicine11/16/11 Dee Gil, RD [address] [place] [address] Registered DietitianNutrition08/20/22 John England MD [address] [place] [address] PhysicianHematology/Oncology08/21/22 Natalie Cadena, LIDDING MACHINE OPERATOR.ARTIST AND REPERTOIRE MANAGER [address] [place] [address] Nurse PractitionerHematology/Oncology08/21/22 Rafael Bob, [place] [address] [place] [address] Specialty Care CoordinatorHematology/Oncology08/21/22 Yordan Feliz MD [address] [place] [address] PhysicianRadiation Oncology08/21/22 Marysol Purvis LSW Social Worker09/07/22Team MemberRelationshipSpecialtyStart DateEnd Date Mannie Nelson MD [address] [place] [facility] [address] PCP - [facility]11/16/11 Dee Gil, KARLOS [address] [place] [address] Registered DietitianNutrition08/20/22 John England MD [address] [place] [address] PhysicianHematology/Oncology08/21/22 Natalie Cadena, LIDDING MACHINE OPERATOR.ARTIST AND REPERTOIRE MANAGER [address] [place] [address] Nurse PractitionerHematology/Oncology08/21/22 Rafael Bob, RN [address] [place] [address] Specialty Care CoordinatorHematology/Oncology08/21/22 Yordan Feliz MD [address] [place] [address] PhysicianRadiation Oncology08/21/22 Marysol Purvis LSW Social Worker09/07/22Team MemberRelationshipSpecialtyStart DateEnd Date Mannie Nelson MD [address] [place] [address] [facility] - [facility]11/16/11 Dee Gil, RD [address] [place] [address] Registered DietitianNutrition08/20/22 John England MD [address] [place] [address] PhysicianHematology/Oncology08/21/22 Natalie Cadena, LIDDING MACHINE OPERATOR.ARTIST AND REPERTOIRE MANAGER [address] [place] [address] Nurse PractitionerHematology/Oncology08/21/22 Rafael Bob, [place] [address] [place] [address] Specialty Care CoordinatorHematology/Oncology08/21/22 Yordan Feliz MD [address] [place] [address] PhysicianRadiation Oncology08/21/22 Marysol Purvis LSW Social Worker09/07/22Team MemberRelationshipSpecialtyStart DateEnd Date Mannie Nelson MD [address] [facility] [place] [address] PCP - [facility] Medicine11/16/11 Dee Gil, RD [address] [place] [address] Registered DietitianNutrition08/20/22 John England MD [address] [place] [address] PhysicianHematology/Oncology08/21/22 Natalie Cadena, LIDDING MACHINE OPERATOR.ARTIST AND REPERTOIRE MANAGER [address] [place] [address] Nurse PractitionerHematology/Oncology08/21/22 Rafael Bob, [place] [address] [place] [address] Specialty Care CoordinatorHematology/Oncology08/21/22 Yordan Feliz MD [address] [place] [address] PhysicianRadiation Oncology08/21/22 Marysol Purvis LSW Social Worker09/07/22Team MemberRelationshipSpecialtyStart DateEnd Date Mannie Nelson MD [address] [place] [address] PCP - [facility] Medicine11/16/11 Dee Gil, KARLOS [address] [place] [address] Registered DietitianNutrition08/20/22 John England MD [address] [place] [address] PhysicianHematology/Oncology08/21/22 Natalie Cadena, LIDDING MACHINE OPERATOR.ARTIST AND REPERTOIRE MANAGER [address] [place] [address] Nurse PractitionerHematology/Oncology08/21/22 Rafael Bob, RN [address] [place] [address] Specialty Care CoordinatorHematology/Oncology08/21/22 Yordan Feliz MD [address] [place] [address] PhysicianRadiation Oncology08/21/22 Marysol Purvis LSW Social Worker09/07/22Team MemberRelationshipSpecialtyStart DateEnd Date Mannie Nelson MD [address] [place] [address] PCP - GeneralFamily Medicine11/16/11 Dee Gil, RD [address] [place] [address] Registered DietitianNutrition08/20/22 John England MD [address] [place] [address] PhysicianHematology/Oncology08/21/22 Natalie Cadena, LIDDING MACHINE OPERATOR.ARTIST AND REPERTOIRE MANAGER [address] [place] [address] Nurse PractitionerHematology/Oncology08/21/22 Rafael Bbo, [place] [address] [place] [address] Specialty Care CoordinatorHematology/Oncology08/21/22 Yordan Feliz MD [address] [place] [address] PhysicianRadiation Oncology08/21/22 Marysol Purvis LSW Social Worker09/07/22Team MemberRelationshipSpecialtyStart DateEnd Date Mannie Nelson MD [address] [place] [address] PCP - [facility] Medicine11/16/11 Dee Gil, RD [address] [place] [address] Registered DietitianNutrition08/20/22 John England MD [address] [place] [address] PhysicianHematology/Oncology08/21/22 Natalie Cadena, LIDDING MACHINE OPERATOR.ARTIST AND REPERTOIRE MANAGER [address] [place] [address] Nurse PractitionerHematology/Oncology08/21/22 Rafael Bob, [place] [address] [place] [address] Specialty Care CoordinatorHematology/Oncology08/21/22 Yordan Feliz MD [address] [place] [address] PhysicianRadiation Oncology08/21/22 Marysol Purvis LSW Social Worker09/07/22Team MemberRelationshipSpecialtyStart DateEnd Date Mannie Nelson MD [address] [place] [address] PCP - [facility] Medicine11/16/11 Dee Tirado, KARLOS [address] [place] [address] Registered DietitianNutrition08/20/22 John England MD [address] [place] [address] PhysicianHematology/Oncology08/21/22 Natalie Cadena, LIDDING MACHINE OPERATOR.ARTIST AND REPERTOIRE MANAGER [address] [place] [address] Nurse PractitionerHematology/Oncology08/21/22 Rafael Bob, RN [address] [place] [address] Specialty Care CoordinatorHematology/Oncology08/21/22 Yordan Feliz MD [address] [place] [address] PhysicianRadiation Oncology08/21/22 Marysol Purvis LSW Social Worker09/07/22Team MemberRelationshipSpecialtyStart DateEnd Date Mannie Nelson MD [address] [place] [address] PCP - GeneralFamily Medicine11/16/11 Dee Tirado, KARLOS [address] [place] [address] Registered DietitianNutrition08/20/22 John England MD [address] [place] [address] PhysicianHematology/Oncology08/21/22 Natalie Cadena, LIDDING MACHINE OPERATOR.ARTIST AND REPERTOIRE MANAGER [address] [place] [address] Nurse PractitionerHematology/Oncology08/21/22 Rafael Bob, [place] [address] [place] [address] Specialty Care CoordinatorHematology/Oncology08/21/22 Yordan Feliz MD [address] [place] [address] PhysicianRadiation Oncology08/21/22 Marysol Purvis LSW Social Worker09/07/22Team MemberRelationshipSpecialtyStart DateEnd Date Mannie Nelson MD [address] [facility] [place] [address] PCP - GeneralFamily Medicine11/16/[address] [place] [address] Registered DietitianNutrition08/20/22 John England MD [address] [place] [address] PhysicianHematology/Oncology08/21/22 Natalie Cadena, YENY.[facility] [address] [place] [address] Nurse PractitionerHematology/Oncology08/21/22 Rafael Bob, [place] [address] [place] [address] Specialty Care CoordinatorHematology/Oncology08/21/22 Yordan Feliz MD [address] [place] [address] PhysicianRadiation Oncology08/21/22 Marysol Purvis LSW Social Worker09/07/22Team MemberRelationshipSpecialtyStart DateEnd Date Shaikh Draek MD [facility] [place] [address] PCP - GeneralPrimary Care02/06/[address] [place] [address] [place] [address] Registered DietitianNutrition08/20/22 John England MD [address] [place] [address] [place] [address] PhysicianHematology/Oncology08/21/22 Natalie Cadena APRN.ARTIST AND REPERTOIRE MANAGER [address] [place] [address] Nurse PractitionerHematology/Oncology08/21/22 Rafael Bob, [place] [address] [place] [address] Specialty Care CoordinatorHematology/Oncology08/21/22 Yordan Feliz MD [address] [place] [address] PhysicianRadiation Oncology08/21/22 Marysol Purvis LSW Social Worker09/07/22Team MemberRelationshipSpecialtyStart DateEnd Date Shaikh Drake MD [address] [place] [address] PCP - GeneralPrimary Care02/06/[address] [place] [address] [place] [address] Registered DietitianNutrition08/20/22 John England MD [address] [place] [address] [place] [address] PhysicianHematology/Oncology08/21/22 Natalie Cadena, YENY.ARTIST AND REPERTOIRE MANAGER [address] [place] [address] Nurse PractitionerHematology/Oncology08/21/22 Rafael Bob RN [address] [place] [address] Specialty Care CoordinatorHematology/Oncology08/21/22 Yordan Feliz MD [address] [place] [address] PhysicianRadiation Oncology08/21/22 Marysol Purvis, DATA ANALYSIS ASSISTANT Social Worker09/07/22Team MemberRelationshipSpecialtyStart DateEnd Date Shaikh Drake MD [address] [place] [address] PCP - GeneralPrimary Care02/06/[address] [place] [address] Registered DietitianNutrition08/20/22 John England MD [address] [place], [facility]70 PhysicianHematology/Oncology08/21/22 Natalie Cadena APRN.ARTIST AND REPERTOIRE MANAGER [address] [place] [address] Nurse PractitionerHematology/Oncology08/21/22 Rafael Bob, [place] [address] [place] [address] Specialty Care CoordinatorHematology/Oncology08/21/22 Yordan Feliz MD [address] [place] [address] PhysicianRadiation Oncology08/21/22 Marysol Purvis, DATA ANALYSIS ASSISTANT Social Worker09/07/22Team MemberRelationshipSpecialtyStart DateEnd Date Shaikh Drake MD [address] [place] [address] PCP - GeneralPrimary Care02/06/[address] [place] [address] [place] [address] Registered DietitianNutrition08/20/22 John England MD [address] [place] [address] [place] [address] PhysicianHematology/Oncology08/21/22 Natalie Cadena APRN.ARTIST AND REPERTOIRE MANAGER [address] [place] [address] [place] [address] Nurse PractitionerHematology/Oncology08/21/22 Rafael Bob, [place] [address] [place] [address] [place] [address] Specialty Care CoordinatorHematology/Oncology08/21/22 Yordan Feliz MD [address] [place] [address] [place] [address] PhysicianRadiation Oncology08/21/22 Marysol Purvis LSW Social Worker09/07/22Team MemberRelationshipSpecialtyStart DateEnd Date Shaikh Drake MD [address] [place] [address] PCP - GeneralPrimary Care02/06/[address] [place] [address] [place] [address] Registered DietitianNutrition08/20/22 John England MD [address] [place] [address] [place] [address] PhysicianHematology/Oncology08/21/22 Natalie Cadena APRN.ARTIST AND REPERTOIRE MANAGER [address] [place] [address] Nurse PractitionerHematology/Oncology08/21/22 Rafael Bob, [place] [address] [place] [address] Specialty Care CoordinatorHematology/Oncology08/21/22 Yordan Feliz MD [address] [place] [address] PhysicianRadiation Oncology08/21/22 Marysol Purvis LSW Social Worker09/07/22Team MemberRelationshipSpecialtyStart DateEnd Date Shaikh Drake MD [address] [place] [address] PCP - GeneralPrimary Care02/06/[address] [place] [address] [place] [address] Registered DietitianNutrition08/20/22 John England MD [address] [place] [address] [place] [address] PhysicianHematology/Oncology08/21/22 Natalie Cadena, YENY.ARTIST AND REPERTOIRE MANAGER [address] [place] [address] Nurse PractitionerHematology/Oncology08/21/22 Rafael Bob RN [address] [place] [address] Specialty Care CoordinatorHematology/Oncology08/21/22 Yordan Feliz MD [address] [place] [address] PhysicianRadiation Oncology08/21/22 Marysol Purvis LSW Social Worker09/07/22Team MemberRelationshipSpecialtyStart DateEnd Date Shaikh Drake MD [address] [place] [address] PCP - GeneralPrimary Care02/06/[address] [place] [address] Registered DietitianNutrition08/20/22 John England MD [address] [place] [address] [address] [place], [facility]70 PhysicianHematology/Oncology08/21/22 Natalie Cadena APRN.ARTIST AND REPERTOIRE MANAGER [address] [place] [address] [place] [address] Nurse PractitionerHematology/Oncology08/21/22 Rafael Bob, [place] [address] [place] [address] Specialty Care CoordinatorHematology/Oncology08/21/22 Yordan Feliz MD [address] [place] [address] PhysicianRadiation Oncology08/21/22 Marysol Purvis LSW Social Worker09/07/22 Team Status: Active Member Role Status Dates Odell Schmidt DO Primary Care Provider Active Team Status: Inactive Member Role Status Dates Michelle Singh APRN Attending Provider Active Start: January 14, 2024 End: January 13ennis Maryan Schmidt Care ProviderActiveStart: January 14, 2024 End: January 14, 2024Team MemberRelationshipSpecialtyStart DateEnd Date Shaikh Drake MD [address] [place] [address] PCP - GeneralPrimary Care02/06/[address] [place] [address] Registered DietitianNutrition08/20/22 John England MD [address] [place] [address] [place] [address] PhysicianHematology/Oncology08/21/22 Natalie Cadena, YENY.ARTIST AND REPERTOIRE MANAGER [address] [place] [address] [place] [address] Nurse PractitionerHematology/Oncology08/21/22 Rafael Bob, [place] [address] [place] [address] [place] [address] Specialty Care CoordinatorHematology/Oncology08/21/22 Yordan Feliz MD [address] [place] [address] [place] [address] PhysicianRadiation Oncology08/21/22 Marysol Purvis LSW Social Worker09/07/22Team MemberRelationshipSpecialtyStart DateEnd Date Mannie [place] MD [address] [place] [facility] [place] [address] PCP - GeneralFamily Medicine Dee Tirado RD [address] [place] [address] Registered DietitianNutrition08/20/22 John England MD [address] [place] [address] [place] [address] PhysicianHematology/Oncology08/21/22 Natalie Cadena, YENY.ARTIST AND REPERTOIRE MANAGER [address] [place] [address] Nurse PractitionerHematology/Oncology08/21/22 Rafael Bob, [place] [address] [place] [address] Specialty Care CoordinatorHematology/Oncology08/21/22 Yordan Feliz MD [address] [place] [address] PhysicianRadiation Oncology08/21/22 Marysol Purvis LSW Social Worker09/07/22Team MemberRelationshipSpecialtyStart DateEnd Mannie Nelson MD [address] [place] [address] PCP - GeneralFamily Medicine Dee Tirado RD [address] [place] [address] Registered DietitianNutrition08/20/22 John England MD [address] [place] [address] [place] [address] PhysicianHematology/Oncology08/21/22 Natalie Cadena, YENY.ARTIST AND REPERTOIRE MANAGER [address] [place] [address] Nurse PractitionerHematology/Oncology08/21/22 Rafael Bbo, [place] [address] [place] [address] Specialty Care CoordinatorHematology/Oncology08/21/22 Yordan Feliz MD [address] [place] [address] [place], [facility]70 PhysicianRadiation Oncology08/21/22Team MemberRelationshipSpecialtyStart DateEnd Date Mannie [place] MD [address] [place] [address] PCP - GeneralFami Medicine Dee Tirado RD [address] [place] [address] [address] [place], [facility]70 Registered DietitianNutrition08/20/22 John England MD [address] [place] [address] [address] [place], [facility]70 PhysicianHematology/Oncology08/21/22 Natalie Cadena APRN.ARTIST AND REPERTOIRE MANAGER [address] [facility] [place] [address] Nurse PractitionerHematology/Oncology08/21/22 Rafael Bob, [place] [address] [place] [address] Specialty Care CoordinatorHematology/Oncology08/21/22 Yordan Feliz MD [address] [place] [address] PhysicianRadiation Oncology08/21/22 Team Status: Inactive Member Role Status Dates Odellarron RuddDO abdiel Primary Care Provider Active Start: April 07, 2024 End: April 07Onofre Smallwood ProviderActiveStart: April 07, 2024 End: April 07, 2024Team MemberRelationshipSpecialtyStart DateEnd Date Unallocated, Quiana Thomas MD [facility] [place] [address] PCP - [facility] Ypahctgu59/7/24Team MemberRelationshipSpecialtyStart DateEnd Date Unallocated, Quiana Thomas MD [address] [place] [address] PCP - [facility] Xejdhowh92/7/24Team MemberRelationshipSpecialtyStart DateEnd Date Unallocated, Quiana Thomas MD [address] [place] [address] PCP - [facility] Eirrvkdh68/7/24Team MemberRelationshipSpecialtyStart DateEnd Date Shaikh Drake MD [address] [place] [address] PCP - GeneralPrimary Care02/06/[address] [place] [address] [place] [address] Registered DietitianNutrition08/20/22 John England MD [address] [place] [address] [place] [address] PhysicianHematology/Oncology08/21/22 Natalie Cadena APRN.ARTIST AND REPERTOIRE MANAGER [address] [place] [address] [place] [address] Nurse PractitionerHematology/Oncology08/21/22 Rafael Bob, [place] [address] [place] [address] [place] [address] Specialty Care CoordinatorHematology/Oncology08/21/22 Yordan Feliz MD [address] [place] [address] [place] [address] PhysicianRadiation Oncology08/21/22 Marysol Purvis LSW Social Worker09/07/22Team MemberRelationshipSpecialtyStart DateEnd Date Unallocated, Noms MD Martha [facility] [place] [address] PCP - GeneralFamily Lydefseg31/7/24Team MemberRelationshipSpecialtyStart DateEnd Date Unallocated, Nomambika Thomas MD [address] [place] [address] PCP - GeneralFamily Rgspwvgz95/7/24Team MemberRelationshipSpecialtyStart DateEnd Date Mason Johnson II, MD [address] [facility] [address] [place] [address] PCP - GeneralInternal Svqrmope88/30/[address] [place] [address] [address] [place], [facility]70 Registered DietitianNutrition08/20/22 John England MD [address] [place] [address] [place] [address] PhysicianHematology/Oncology08/21/22 Natalie Cadena APRN.ARTIST AND REPERTOIRE MANAGER [address] [place] [address] [place] [address] Nurse PractitionerHematology/Oncology08/21/22 Rafael Bob, [place] [address] [place] [address] Specialty Care CoordinatorHematology/Oncology08/21/22 Yordan Feliz MD [address] [place] [address] PhysicianRadiation Oncology08/21/22 Marysol Purvis LSW Social Worker09/07/22Team MemberRelationshipSpecialtyStart DateEnd Date Mason Johnson II, MD [address] [facility] [address] [place] [address] PCP - GeneralInternal Crfcfyew44/30/[address] [place] [address] [place] [address] Registered DietitianNutrition08/20/22 John England MD [address] [place] [address] [place] [address] PhysicianHematology/Oncology08/21/22 Natalie Cadena APRN.ARTIST AND REPERTOIRE MANAGER [address] [place] [address] Nurse PractitionerHematology/Oncology08/21/22 Rafael Bob, [place] [address] [place] [address] Specialty Care CoordinatorHematology/Oncology08/21/22 Yordan Feliz MD [address] [facility] [place] [address] PhysicianRadiation Oncology08/21/22 Marysol Purvis LSW Social Worker09/07/22Team MemberRelationshipSpecialtyStart DateEnd Date Unallocated, Noms MD Martha [address] [facility] [place] [address] [facility] - [facility] Kmyvnnjn02/7/24Team MemberRelationshipSpecialtyStart DateEnd Date Mason Johnson MD [address] [place] [address] PCP - GeneralInternal Ddbakqcf05/11/24Team MemberRelationshipSpecialtyStart Date End Date Mason Johnson MD [address] [place] [address] PCP - GeneralInternal Aakrdpbu83/11/24Team MemberRelationshipSpecialtyStart Date End Date Mason Johnson MD [address] [place] [address] PCP - GeneralInternal Itazgqfa05/11/24Team MemberRelationshipSpecialtyStart Date End Date Mason Johnson MD [address] [facility] [address] [place] [address] PCP - GeneralInternal Fifsjuqb22/11/24Team MemberRelationshipSpecialtyStart Date End Date Shaikh Drake MD [address] [place] [phone] PCP - GeneralInternal Medicine11/05/23Team MemberRelationshipSpecialtyStart Date End Date Shaikh Drake MD [address] [place] [phone] PCP - GeneralInternal Medicine11/05/23Team MemberRelationshipSpecialtyStart Date End Date Mason Johnson MD [address] [place] [address] PCP - GeneralInternal Kforljmr77/11/24Team MemberRelationshipSpecialtyStart Date End Date Shaikh Drake MD [address] [place] [address] PCP - GeneralInternal Medicine11/05/23Team MemberRelationshipSpecialtyStart Date End Date Shaikh Drake MD [address] [place] [address] PCP - GeneralInternal [facility]11/05/23Team MemberRelationshipSpecialtyStart Date End Date Mason Johnson MD [address] [place] [address] PCP - GeneralInternal Vhtxofnh83/11/24Team MemberRelationshipSpecialtyStart Date End Date Mason Johnson MD [address] [place] [address] PCP - GeneralInternal Cjexfvgl48/11/24 Mason Johnson MD [address] [place] [address] PCP - [facility]07/08/2511Team MemberRelationshipSpecialtyStart Date End Date Mason Johnson MD [address] [place] [address] PCP - GeneralInternal Bejsbspp97/11/24 Mason Johnson MD [address] [place] [address] PCP - [place]07/08/2511Team MemberRelationshipSpecialtyStart Date End Date Mason Johnson MD [address] [place] [address] PCP - GeneralInternal Cwjfzoko34/11/24 Mason Johnson MD [address] [place] [address] PCP - Medical [facility]07/08/2511Team MemberRelationshipSpecialtyStart Date End Date Mason Johnson MD [address] [place] [address] [facility]/18/24 Mason Johnson MD [address] [place] [address] PCP - [place]07/08/2511Team MemberRelationshipSpecialtyStart Date End Date Mason Johnson MD [address] [place] [address] [facility] - [facility] Qkzchxsr67/11/24 Mason Johnson MD [address] [place] [address] PCP - [place]07/08/2511Team MemberRelationshipSpecialtyStart Date End Date Mason Johnson MD [address] [place] [address] PCP - GeneralInternal Njblkufd62/11/24 Mason Johnson MD [address] [place] [address] PCP - Medical [facility]07/08/2511Team MemberRelationshipSpecialtyStart Date End Date Mason Johnson MD [address] [place] [address] [facility] - [facility] Kmanduoo56/11/24 Mason Johnson MD [address] [place] [address] PCP - Medical [facility]07/08/2511Team MemberRelationshipSpecialtyStart Date End Date Mason Johnson MD [address] [place] [address] [facility]/18/24 Mason Johnson MD [address] [place] [address] PCP - Medical [facility]07/08/2511Team MemberRelationshipSpecialtyStart Date End Date Mason Johnson MD [address] [place] [address] [facility] - [facility]/18/24 Mason Johnson MD [address] [place] [address] PCP - Medical [facility]07/08/2511Team MemberRelationshipSpecialtyStart Date End Date Mason Johnson MD [address] [place] [address] PCP - GeneralInternal Gaebekpq88/11/24 Mason Johnson MD [address] [place] [address] PCP - Medical [facility]07/08/2511Team MemberRelationshipSpecialtyStart Date End Date Mason Johnson II, MD [address] [facility] [address] [place] [address] PCP - GeneralInternal Bqupknen09/30/[address] [facility] [facility] [place], [place] [address] Registered DietitianNutrition08/20/22 John England MD [address] [place] [address] PhysicianHematology/Oncology08/21/22 Natalie Cadena APRN.ARTIST AND REPERTOIRE MANAGER [address] [place] [address] Nurse PractitionerHematology/Oncology08/21/22 Rafael Bob, [place] [address] [place] [address] Specialty Care CoordinatorHematology/Oncology08/21/22 Yordan Feliz MD [address] [facility] [place] [address] PhysicianRadiation Oncology08/21/22 Marysol Purvis LSW Social Worker09/07/22Team MemberRelationshipSpecialtyStart DateEnd Date Mason Johnson II, MD [address] [facility] [address] [place] [address] PCP - GeneralInternal Iafuprsp76/30/[address] [place] [address] Registered DietitianNutrition08/20/22 John England MD [address] [place] [address] PhysicianHematology/Oncology08/21/22 Natalie Cadena APRN.ARTIST AND REPERTOIRE MANAGER [address] [place] [address] Nurse PractitionerHematology/Oncology08/21/22 Rafael Bob, [place] [address] [place] [address] Specialty Care CoordinatorHematology/Oncology08/21/22 Yordan Feliz MD [address] [place] [address] PhysicianRadiation Oncology08/21/22 aMrysol Purvis LSW Social Worker09/07/22Team MemberRelationshipSpecialtyStart DateEnd Date Mason Johnson MD [address] [place] [address] PCP - GeneralInternal Rhpozfeh54/11/24 Mason Johnson MD [address] [place] [address] PCP - Medical [facility]07/08/2511Team MemberRelationshipSpecialtyStart Date End Date Mason Johnson MD [address] [place] [address] PCP - [facility]05/18/24 Mason Johnson MD [address] [place] [address] PCP - Medical [facility]07/08/2511Team MemberRelationshipSpecialtyStart Date End Date Mason Johnson MD [address] [place] [address] PCP - [facility]05/18/24 Mason Johnson MD [address] [address] [place] [address] [facility] - Medical [facility]07/08/2511Te MemberRelationshipSpecialtyStart Date End Date Mason Johnson MD [address] [place] [address] [facility] - [facility]05/18/24 Mason Johnson MD [address] [place] [address] [facility] Medical [facility]07/08/2511Te MemberRelationshipSpecialtyStart Date End Date Mason Johnson MD [address] [place] [address] [facility]05/18/24 Mason Johnson MD [address] [place] [address] PCP - Medical [place]07/08/2511Team MemberRelationshipSpecialtyStart Date End Date Mason Johnson MD [address] [facility] [place] [address] [place] [address] [facility] Mason Johnson MD [address] [facility] [place] [address] [place] [address] PCP - Medical [facility]07/08/2511Team MemberRelationshipSpecialtyStart Date End Date Mason Johnson MD [address] [facility] [place] [address] [place] [address] PCP - [facility]05/18/24 Mason Johnson MD [address] [facility] [place] [address] [place] [address] PCP - Medical [facility]07/08/2511 (unrecognized sect ion and content) No Status Records FoundNo Status Records FoundNo Status Records FoundNo Status Records FoundNo Status Records Found INFORMATION SOURCE (unrecogn ized section and content) DATE CREATED AUTHOR 07/31/2022 [facility] DATE CREATED AUTHOR AUTHOR'S ORGANIZ ATION 08/04/2022 [facility] DATE CREATED AUTHOR AUTHOR'S ORGANIZ ATION 12/04/2024 [facility] DATE CREATED AUTHOR AUTHOR'S ORGANIZ ATION 03/28/2025 [facility] DATE CREATED AUTHOR AUTHOR'S ORGANIZ ATION 04/21/2025 [facility] EPIC Source Comments (unrecognize d section and content) In the event this informatio n is protected by the Federal Confidentiality of Alcohol and Drug Abuse Patient Records regulations: The Federal rules restrict any use of the information to criminally investigate or prosecute any alcohol or drug abuse patient.[facility] CenterIn the event this information is protected by the Federal Confidentiality of Alcohol and Drug Abuse Patient Records regulations: The Federal rules restrict any use of the information to criminally investigate or prosecute any alcohol or drug abuse patient.[facility] CenterIn the event this information is protected by the Federal Confidentiality of Alcohol and Drug Abuse Patient Records regulations: The Federal rules restrict any use of the information to criminally investigate or prosecute any alcohol or drug abuse patient.[facility] CenterIn the event this information is protected by the Federal Confidentiality of Alcohol and Drug Abuse Patient Records regulations: The Federal rules restrict any use of the information to criminally investigate or prosecute any alcohol or drug abuse patient.[facility] CenterIn the event this information is protected by the Federal Confidentiality of Alcohol and Drug Abuse Patient Records regulations: The Federal rules restrict any use of the information to criminally investigate or prosecute any alcohol or drug abuse patient.[facility] CenterIn the event this information is protected by the Federal Confidentiality of Alcohol and Drug Abuse Patient Records regulations: The Federal rules restrict any use of the information to criminally investigate or prosecute any alcohol or drug abuse patient.[facility] CenterIn the event this information is protected by the Federal Confidentiality of Alcohol and Drug Abuse Patient Records regulations: The Federal rules restrict any use of the information to criminally investigate or prosecute any alcohol or drug abuse patient.[facility] CenterIn the event this information is protected by the Federal Confidentiality of Alcohol and Drug Abuse Patient Records regulations: The Federal rules restrict any use of the information to criminally investigate or prosecute any alcohol or drug abuse patient.[facility] CenterIn the event this information is protected by the Federal Confidentiality of Alcohol and Drug Abuse Patient Records regulations: The Federal rules restrict any use of the information to criminally investigate or prosecute any alcohol or drug abuse patient.[facility] CenterIn the event this information is protected by the Federal Confidentiality of Alcohol and Drug Abuse Patient Records regulations: The Federal rules restrict any use of the information to criminally investigate or prosecute any alcohol or drug abuse patient.[facility] CenterIn the event this information is protected by the Federal Confidentiality of Alcohol and Drug Abuse Patient Records regulations: The Federal rules restrict any use of the information to criminally investigate or prosecute any alcohol or drug abuse patient.[facility] CenterIn the event this information is protected by the Federal Confidentiality of Alcohol and Drug Abuse Patient Records regulations: The Federal rules restrict any use of the information to criminally investigate or prosecute any alcohol or drug abuse patient.[facility] CenterIn the event this information is protected by the Federal Confidentiality of Alcohol and Drug Abuse Patient Records regulations: The Federal rules restrict any use of the information to criminally investigate or prosecute any alcohol or drug abuse patient.[facility] CenterIn the event this information is protected by the Federal Confidentiality of Alcohol and Drug Abuse Patient Records regulations: The Federal rules restrict any use of the information to criminally investigate or prosecute any alcohol or drug abuse patient.[facility] CenterIn the event this information is protected by the Federal Confidentiality of Alcohol and Drug Abuse Patient Records regulations: The Federal rules restrict any use of the information to criminally investigate or prosecute any alcohol or drug abuse patient.[facility] CenterIn the event this information is protected by the Federal Confidentiality of Alcohol and Drug Abuse Patient Records regulations: The Federal rules restrict any use of the information to criminally investigate or prosecute any alcohol or drug abuse patient.[facility]In the event this information is protected by the Federal Confidentiality of Alcohol and Drug Abuse Patient Records regulations: The Federal rules restrict any use of the information to criminally investigate or prosecute any alcohol or drug abuse patient.[facility] CenterIn the event this information is protected by the Federal Confidentiality of Alcohol and Drug Abuse Patient Records regulations: The Federal rules restrict any use of the information to criminally investigate or prosecute any alcohol or drug abuse patient.[facility] CenterIn the event this information is protected by the Federal Confidentiality of Alcohol and Drug Abuse Patient Records regulations: The Federal rules restrict any use of the information to criminally investigate or prosecute any alcohol or drug abuse patient.[facility] CenterIn the event this information is protected by the Federal Confidentiality of Alcohol and Drug Abuse Patient Records regulations: The Federal rules restrict any use of the information to criminally investigate or prosecute any alcohol or drug abuse patient.[facility] CenterIn the event this information is protected by the Federal Confidentiality of Alcohol and Drug Abuse Patient Records regulations: The Federal rules restrict any use of the information to criminally investigate or prosecute any alcohol or drug abuse patient.[facility] CenterIn the event this information is protected by the Federal Confidentiality of Alcohol and Drug Abuse Patient Records regulations: The Federal rules restrict any use of the information to criminally investigate or prosecute any alcohol or drug abuse patient.[facility] CenterIn the event this information is protected by the Federal Confidentiality of Alcohol and Drug Abuse Patient Records regulations: The Federal rules restrict any use of the information to criminally investigate or prosecute any alcohol or drug abuse patient.[facility] CenterIn the event this information is protected by the Federal Confidentiality of Alcohol and Drug Abuse Patient Records regulations: The Federal rules restrict any use of the information to criminally investigate or prosecute any alcohol or drug abuse patient.[facility] CenterIn the event this information is protected by the Federal Confidentiality of Alcohol and Drug Abuse Patient Records regulations: The Federal rules restrict any use of the information to criminally investigate or prosecute any alcohol or drug abuse patient.[facility] CenterIn the event this information is protected by the Federal Confidentiality of Alcohol and Drug Abuse Patient Records regulations: The Federal rules restrict any use of the information to criminally investigate or prosecute any alcohol or drug abuse patient.[facility] CenterIn the event this information is protected by the Federal Confidentiality of Alcohol and Drug Abuse Patient Records regulations: The Federal rules restrict any use of the information to criminally investigate or prosecute any alcohol or drug abuse patient.[facility] CenterIn the event this information is protected by the Federal Confidentiality of Alcohol and Drug Abuse Patient Records regulations: The Federal rules restrict any use of the information to criminally investigate or prosecute any alcohol or drug abuse patient.[facility] CenterIn the event this information is protected by the Federal Confidentiality of Alcohol and Drug Abuse Patient Records regulations: The Federal rules restrict any use of the information to criminally investigate or prosecute any alcohol or drug abuse patient.[facility] CenterIn the event this information is protected by the Federal Confidentiality of Alcohol and Drug Abuse Patient Records regulations: The Federal rules restrict any use of the information to criminally investigate or prosecute any alcohol or drug abuse patient.[facility] CenterIn the event this information is protected by the Federal Confidentiality of Alcohol and Drug Abuse Patient Records regulations: The Federal rules restrict any use of the information to criminally investigate or prosecute any alcohol or drug abuse patient.[facility] CenterIn the event this information is protected by the Federal Confidentiality of Alcohol and Drug Abuse Patient Records regulations: The Federal rules restrict any use of the information to criminally investigate or prosecute any alcohol or drug abuse patient.[facility] CenterIn the event this information is protected by the Federal Confidentiality of Alcohol and Drug Abuse Patient Records regulations: The Federal rules restrict any use of the information to criminally investigate or prosecute any alcohol or drug abuse patient.[facility] CenterIn the event this information is protected by the Federal Confidentiality of Alcohol and Drug Abuse Patient Records regulations: The Federal rules restrict any use of the information to criminally investigate or prosecute any alcohol or drug abuse patient.[facility] CenterIn the event this information is protected by the Federal Confidentiality of Alcohol and Drug Abuse Patient Records regulations: The Federal rules restrict any use of the information to criminally investigate or prosecute any alcohol or drug abuse patient.[facility] CenterIn the event this information is protected by the Federal Confidentiality of Alcohol and Drug Abuse Patient Records regulations: The Federal rules restrict any use of the information to criminally investigate or prosecute any alcohol or drug abuse patient.[facility] CenterIn the event this information is protected by the Federal Confidentiality of Alcohol and Drug Abuse Patient Records regulations: The Federal rules restrict any use of the information to criminally investigate or prosecute any alcohol or drug abuse patient.[facility] CenterIn the event this information is protected by the Federal Confidentiality of Alcohol and Drug Abuse Patient Records regulations: The Federal rules restrict any use of the information to criminally investigate or prosecute any alcohol or drug abuse patient.[facility] CenterIn the event this information is protected by the Federal Confidentiality of Alcohol and Drug Abuse Patient Records regulations: The Federal rules restrict any use of the information to criminally investigate or prosecute any alcohol or drug abuse patient.[facility] CenterIn the event this information is protected by the Federal Confidentiality of Alcohol and Drug Abuse Patient Records regulations: The Federal rules restrict any use of the information to criminally investigate or prosecute any alcohol or drug abuse patient.[facility] CenterIn the event this information is protected by the Federal Confidentiality of Alcohol and Drug Abuse Patient Records regulations: The Federal rules restrict any use of the information to criminally investigate or prosecute any alcohol or drug abuse patient.[facility] CenterIn the event this information is protected by the Federal Confidentiality of Alcohol and Drug Abuse Patient Records regulations: The Federal rules restrict any use of the information to criminally investigate or prosecute any alcohol or drug abuse patient.[facility] CenterIn the event this information is protected by the Federal Confidentiality of Alcohol and Drug Abuse Patient Records regulations: The Federal rules restrict any use of the information to criminally investigate or prosecute any alcohol or drug abuse patient.[facility] CenterIn the event this information is protected by the Federal Confidentiality of Alcohol and Drug Abuse Patient Records regulations: The Federal rules restrict any use of the information to criminally investigate or prosecute any alcohol or drug abuse patient.[facility] CenterIn the event this information is protected by the Federal Confidentiality of Alcohol and Drug Abuse Patient Records regulations: The Federal rules restrict any use of the information to criminally investigate or prosecute any alcohol or drug abuse patient.[facility] CenterIn the event this information is protected by the Federal Confidentiality of Alcohol and Drug Abuse Patient Records regulations: The Federal rules restrict any use of the information to criminally investigate or prosecute any alcohol or drug abuse patient.[facility] CenterIn the event this information is protected by the Federal Confidentiality of Alcohol and Drug Abuse Patient Records regulations: The Federal rules restrict any use of the information to criminally investigate or prosecute any alcohol or drug abuse patient.[facility] CenterIn the event this information is protected by the Federal Confidentiality of Alcohol and Drug Abuse Patient Records regulations: The Federal rules restrict any use of the information to criminally investigate or prosecute any alcohol or drug abuse patient.[facility] CenterIn the event this information is protected by the Federal Confidentiality of Alcohol and Drug Abuse Patient Records regulations: The Federal rules restrict any use of the information to criminally investigate or prosecute any alcohol or drug abuse patient.[facility] CenterIn the event this information is protected by the Federal Confidentiality of Alcohol and Drug Abuse Patient Records regulations: The Federal rules restrict any use of the information to criminally investigate or prosecute any alcohol or drug abuse patient.[facility] CenterIn the event this information is protected by the Federal Confidentiality of Alcohol and Drug Abuse Patient Records regulations: The Federal rules restrict any use of the information to criminally investigate or prosecute any alcohol or drug abuse patient.[facility] CenterIn the event this information is protected by the Federal Confidentiality of Alcohol and Drug Abuse Patient Records regulations: The Federal rules restrict any use of the information to criminally investigate or prosecute any alcohol or drug abuse patient.[facility] CenterIn the event this information is protected by the Federal Confidentiality of Alcohol and Drug Abuse Patient Records regulations: The Federal rules restrict any use of the information to criminally investigate or prosecute any alcohol or drug abuse patient.[facility] CenterIn the event this information is protected by the Federal Confidentiality of Alcohol and Drug Abuse Patient Records regulations: The Federal rules restrict any use of the information to criminally investigate or prosecute any alcohol or drug abuse patient.[facility] CenterIn the event this information is protected by the Federal Confidentiality of Alcohol and Drug Abuse Patient Records regulations: The Federal rules restrict any use of the information to criminally investigate or prosecute any alcohol or drug abuse patient.[facility] CenterIn the event this information is protected by the Federal Confidentiality of Alcohol and Drug Abuse Patient Records regulations: The Federal rules restrict any use of the information to criminally investigate or prosecute any alcohol or drug abuse patient.[facility] CenterIn the event this information is protected by the Federal Confidentiality of Alcohol and Drug Abuse Patient Records regulations: The Federal rules restrict any use of the information to criminally investigate or prosecute any alcohol or drug abuse patient.[facility] CenterIn the event this information is protected by the Federal Confidentiality of Alcohol and Drug Abuse Patient Records regulations: The Federal rules restrict any use of the information to criminally investigate or prosecute any alcohol or drug abuse patient.[facility] CenterIn the event this information is protected by the Federal Confidentiality of Alcohol and Drug Abuse Patient Records regulations: The Federal rules restrict any use of the information to criminally investigate or prosecute any alcohol or drug abuse patient.[facility] CenterIn the event this information is protected by the Federal Confidentiality of Alcohol and Drug Abuse Patient Records regulations: The Federal rules restrict any use of the information to criminally investigate or prosecute any alcohol or drug abuse patient.[facility] CenterIn the event this information is protected by the Federal Confidentiality of Alcohol and Drug Abuse Patient Records regulations: The Federal rules restrict any use of the information to criminally investigate or prosecute any alcohol or drug abuse patient.[facility] CenterIn the event this information is protected by the Federal Confidentiality of Alcohol and Drug Abuse Patient Records regulations: The Federal rules restrict any use of the information to criminally investigate or prosecute any alcohol or drug abuse patient.[facility] CenterIn the event this information is protected by the Federal Confidentiality of Alcohol and Drug Abuse Patient Records regulations: The Federal rules restrict any use of the information to criminally investigate or prosecute any alcohol or drug abuse patient.[facility] Reason for Visit (unrecogniz ed section and content) ReasonCommentsSuspicious Skin LesionSpecialtyDiagnoses / ProceduresReferred By ContactReferred To ContactDermatology Diagnoses Actinic keratosis Procedures AL OFFICE/OUTPATIENT NEW HIGH [facility] 60 MINUTES Mason Johnson MD [address] [facility] [place] [address] [place] [address] Phone: tel: fax: Barry Stevens, LIDDING MACHINE OPERATOR-ARTIST AND REPERTOIRE MANAGER [address] [facility] [address] [place] [address] Phone: tel: fax: Referral IDStatusReasonStart DateExpiration DateVisits RequestedVisits [id number] Specialty Services Required /[id number] CTSpecialtyDiagnoses / Procedures Referred By ContactReferred To ContactMOLECULAR & FUNCTIONAL IMAGING Diagnoses Tongue cancer (HCC) Head and neck cancer (HCC) Procedures NM PET/CT SKULL-THIGH INITIAL PET IMAGING CT ATTENUATION SKULL BASE MID-THIGH Yordan Feliz MD [address] [place] [address] [place] [address] [facility] [address] [place] [address] Referral IDStatusReasonStart DateExpiration DateVisits RequestedVisits [id number] Auto-Generated Referral [id number] EducationReasonCommentsConsultSpecialty Diagnoses / ProceduresReferred By ContactReferred To ContactRadiation Oncology / RADIATION ONCOLOGY Diagnoses Dr. 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 Images requested. Procedures NEW PATIENT RAD ONC Hector Moralesmicheal Lopez [address] [place] [address] Yordan Feliz MD [address] [place] [address] [place] [address] Referral IDStatusReasonStgays creek DateExpiration DateVisits RequestedVisits [id number] Request Financial Clearance Required - OON Payor /[id number] TelephoneReasonCommentsCare CoordinationTreatment PlanningReasonCommentsDental Clearance - Radiation Therapy ReasonOnset DateCommentsSimulation Request Form08/23/2022ReasonCommentsCare CoordinationPt QuestionsReasonCommentsCare CoordinationPET ResultsReasonComments tongue cancerReasonCommentsRadiotherapy On-treatment VisitSpecialtyDiagnoses / ProceduresReferred By ContactReferred To Contact Diagnoses 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) John England MD [address] [place] [address] [place] [address] Sebastien Treat Jose [address] [place] [address] Ref[facility]Status[facility] DateExpiration DateVisits RequestedVisits [id number]/[id number] [id number] Post Treatment CallReasonCommentsSocial Work ServicesReason CommentsNutrition AssessmentReasonCommentscancer of the base of tongueReason CommentsNutrition CounselingReasonCommentsskin 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)ReasonCommentstongue cancerFollow upReasonComments Cancer of the base of tongue1 week follow upReasonCommentsCancer of the base of tongue1 week follow upReasonCommentsHead and Neck CancerSpecialtyDiagnoses / ProceduresReferred By ContactReferred To ContactRadiation Oncology / RADIATION ONCOLOGY Diagnoses 4 Week Follow Up Patient wanted to coordinate appt with Med Onc Procedures EST POST 90 DAY RAD TX Yordan Feliz MD [address] [place] [address] [place] [address] Yordan Feliz MD [address] [place] [address] [place] [address] Referral IDStatusReasonStart DateExpiration DateVisits RequestedVisits [id number]/23/202312/31/[id number] of the base of tongueReasonCommentsHead and Neck CancerReasonCommentsCancer of the base of tongue1 month follow upReasonCommentsCare CoordinationResultsReasonComments 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)ReasonCommentsRadiology CTSpecialtyDiagnoses / ProceduresReferred By ContactReferred To ContactCT IMAGING Diagnoses Lung nodules 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) Procedures CT CHEST W IVCON DIAGNOSTIC COMPUTED TOMOGRAPHY THORAX W/CONTRAST John England MD [address] [place] [address] [place] [address] Ct [address] [facility] Referral IDStatusReasonStart DateExpiration DateVisits RequestedVisits [id number] Auto-Generated Referral /[id number] / ProceduresReferred By ContactReferred To ContactCT IMAGING Diagnoses 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) Mass of right lung Procedures CT CHEST W IVCON DIAGNOSTIC COMPUTED TOMOGRAPHY THORAX W/CONTRAST John England MD [address] [place] [address] [place] [address] [place] [address] Referral IDStatusReasonStart DateExpiration DateVisits RequestedVisits [id number] Auto-Generated Referral /[id number] / ProceduresReferred By ContactReferred To ContactCT IMAGING Diagnoses Lung nodules Procedures CT CHEST W IVCON DIAGNOSTIC COMPUTED TOMOGRAPHY THORAX W/CONTRAST John England MD [address] [place] [address] DR GARCIA, [facility] Ct Imaging [place] [address] Referral IDStatusReasonStart DateExpiration DateVisits RequestedVisits [id number] Auto-Generated Referral /[id number] NMSpecialtyDiagnoses / Procedures Referred By ContactReferred To ContactMOLECULAR & FUNCTIONAL IMAGING Diagnoses 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) Procedures NM PET/CT SKULL-THIGH SUBSEQUENT PET IMAGING CT ATTENUATION SKULL BASE MID-THIGH Yordna Feliz MD [address] [place] [address] DR GARCIA, [facility]70 Molecular & Functional Imaging [address] [place] [address] Referral IDStatusReasonStart DateExpiration DateVisits RequestedVisits [id number] Auto-Generated Referral /[id number] month check base of tongue.Specialty Diagnoses / ProceduresReferred By ContactReferred To ContactCT IMAGING Diagnoses 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 Procedures CT CHEST W IVCON DIAGNOSTIC COMPUTED TOMOGRAPHY THORAX W/CONTRAST John England MD [address] [place] [address] DR GARCIA, [facility] Ct Imaging [place] [address] Referral IDStatusReasonStart DateExpiration DateVisits RequestedVisits [id number] Auto-Generated Referral [id number] CarePrevious pcp dr Rodriguez oncology twice yearly NCCCDiabetesHypertensionReasonCommentsCancer of the base of tongue6 month follow upReasonCommentsHead and Neck CancerFollow upReason CommentsMed RefillReasonCommentsCancer1 month follow up Cancer of base of tongue ReasonCommentsCancer1 mo check cancer base of tongueReasonCommentsCancer1 mo follow upReasonCommentsCancer1 month follow upReasonCommentsCancer1 month follow up tongue CAReasonCommentsMedicare Annual Wellness Visit SubsequentReason CommentsNeck PainHip PainUrinary IncontinenceBleeding/BruisingReasonComments Cancer3 month checkReasonCommentsResultsxraysFollow-upNeck/hip pain and osteoarthritisReasonCommentsCancer of base of tongue6 month follow upReason CommentsDiabetesFollow-upKnee and hip pain--left hip pt states he is not sure its OA as discussed would like to discussReasonCommentsResultsKnee xray, lab resultsJoint PainReasonCommentsHip PainResultsLspine xrayReasonCommentsCancer3 month checkReasonCommentsHip PainResultsLeft hip mriURIReasonOnset DateComments hip THA04/19/20254245LqehnbXbfgojolLgoejq1 mo checkReasonCommentsFollow-upSpecialty Diagnoses / ProceduresReferred By ContactReferred To ContactOrthopaedic Surgery Diagnoses Pseudogout involving multiple joints Primary osteoarthritis of left hip Mason Johnson MD [address] [facility] [place] [address] [place] [address] Phone: tel: fax: Jr. Mechelle Boyer, DO [address] [place] [address] Phone: tel: fax: Referral IDStatusReasonStart DateExpiration DateVisits RequestedVisits [id number] Specialty Services Required Goals (unrecognized section and content) Goals may [...] BE BASED ON THE PRIMARY CLINICAL RECORDS. [facility]. provides no warranty or guarantee of the accuracy or completeness of information in this document.
--- NOTE | 2025-04-29 12:25 | XR_ITS ---
The [place] [id number] Patient Name: ANN RIVERA MRN: [id number] date: 1945 Sex: M Assigned Patient Location: LAB Current Patient Location: LAB Accession/Order Number: [id number] Exam Date: 04/29/2025 12:41 Report Date: 04/29/2025 18:23 At the request of: MECHELLE GUPTA DO Procedure: XR hip LT 1V w/ pelvis Single view pelvis and single view left hip INDICATION: Primary osteoarthritis the left hip COMPARISON: MRI left hip 03/12/2025 FINDINGS: Moderate degenerative changes right hip and moderate to severe degenerative changes left hip with joint space narrowing, osteophytosis and subchondral cyst formation. Enthesopathy involving the trochanteric region noted. Degenerative changes both sacral joints. No diastases noted. XR/XR hip LT 1V w/ pelvis IMPRESSION: Moderate severe degenerative changes left hip. Negative acute osseous abnormalities. Impression dictated by: Hernandez Rosales M.D. 04/29/2025 6:23 PM Dictation Location: [place] [address] Electronically authenticated by: [id number] Y Date: 04/29/2025 18:23
[2025-04-29 12:29] LABS: Hematocrit 42.5 % (42.0-54.0); Hemoglobin 14.1 g/dL (14.0-18.0); Mean Corpuscular HGB Conc 33.2 g/dL (29.9-35.2); Mean Corpuscular Hemoglobin 29.6 pg (25.9-34.0); Mean Corpuscular Volume 89.3 fL (80.0-94.0); Platelet Count 275 10^3/uL (150-450); Red Blood Count 4.76 10^6/uL (4.70-6.10); White Blood Count 6.2 10^3/uL (4.0-11.0)
--- NOTE | 2025-04-29 12:30 | ECG_ITS ---
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 Measurements Intervals [place] Rate: 84 P: DE: QRS: -10 QRSD: 114 T: 54 QT: 337 QTc: 399 Interpretive Statements ATRIAL FLUTTER INCOMPLETE RIGHT BUNDLE BRANCH BLOCK [90+ ms QRS DURATION, TERMINAL R IN V1/V2, 40+ ms S IN I/aVL/V4/V5/V6] ABNORMAL ECG Compared to ECG 07/27/2022 09:22:49 Incomplete right bundle-branch block now present Sinus bradycardia no longer present Electronically Signed On 04-29-2025 19:19:53 EDT by MECHELLE SCHMIDT M.D.
[2025-04-29 12:50] LABS: INR 1.07; Partial Thromboplastin Time 29.8 sec (22.3-36.2); Prothrombin Time 11.3 sec (9.0-11.6)
[2025-04-29 12:54] LABS: Alanine Aminotransferase 29 U/L (16-63); Albumin Globulin Ratio 1.0; Albumin Level 3.8 g/dL (3.4-5.0); Alkaline Phosphatase 104 U/L (46-116); Anion Gap 13.9; Aspartate Amino Transferase 17 U/L (15-37); Blood Urea Nitrogen 16.0 mg/dL (7.0-18.0); Calcium 9.4 mg/dL (8.5-10.1); Carbon Dioxide 29.2 mmol/L (21.0-32.0); Chloride 100 mmol/L (98-107); Estimated GFR (African America >60 (>=60 mL/min/1.73m^2); Estimated GFR (Non-African Ame 59 (>=60 mL/min/1.73m^2); Globulin 3.9 g/dL; Glucose 222 mg/dL (74-106); Potassium 4.1 mmol/L (3.5-5.1); Sodium 139 mmol/L (136-145); Total Protein 7.7 g/dL (6.4-8.2)
[2025-04-29 13:05] LABS: Glucose Urine UA 100 mg/dL (NEGATIVE)
[2025-04-29 13:18] LABS: Band Neutrophils Absolute 0.2 10^3/uL (0.0-0.3); Basophils Abs Manual 0.12 10^3/uL (0.00-0.10); Basophils Percent Manual 2.0 % (0.2-2.0); Eosinophils Absolute Manual 0.12 10^3/uL (0.00-0.70); Eosinophils Percent Manual 2.0 % (0.9-7.0); Lymphocytes Absolute Manual 0.49 10^3/uL (1.20-3.80); Lymphocytes Percent Manual 8.0 % (20.5-60.0); Monocytes Absolute Manual 0.12 10^3/uL (0.30-0.80); Monocytes Percent Manual 2.0 % (1.7-12.0); Segmented Neut Absolute Manual 5.14 10^3/uL (1.4-6.5); Segmented Neutrophils % Manual 83.0 (43.0-75.0)
== END 2025-04-29 11:55 | disposition home or self-care (01) ==
PROVIDERS: PCP Internal Medicine; Visit Provider Orthopaedic Surgery
DX: Z01.818 Encounter for other preprocedural examination (principal); M16.12 Unilateral primary osteoarthritis, left hip; R82.998 Other abnormal findings in urine
CPT/HCPCS: 36415; 73501; 80053; 81003; 85007; 85027; 85610; 85730; 87086; 93005

== ENCOUNTER 2025-05-07 08:40 | Outpatient (OUT) | payer MEDICARE, SELFPAY ==
--- OUTSIDE RECORDS SUMMARY | 2025-04-28 09:00 | XMS_ITS | Encounter Summary ---
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 Fam Boyer, DO [address] [place] [address] Primary osteoarthritis of left hip [...] times a week06/10/2023How often do you attend jainism or caodaism services?Never06/10/2023o you belong to any clubs or organizations such as jainism groups, unions, fraternal or athletic groups, or school groups?No 06/10/2023How often do you attend meetings of the clubs or organizations you belong to?Never06/10/2023re you , , , , never , or living with a partner?Tchlqdn5006/10/2023UDIT-CAnswerDate RecordedQ1: How often do you have a drink containing alcohol?4 or more times a week 07/29/2023verage Number of DrinksNot on file07/29/2023Frequency of Binge DrinkingNot on file07/29/2023Overall Financial Resource Strain (CARDIA)Answer Date RecordedHow hard is it for you to pay for the very basics like food, housing, medical care, and heating?Very hard06/10/2023HQ-2AnswerDate Recorded Patient Health Questionnaire-2 [id number] [place] [facility] - Occupational Stress QuestionnaireAnswerDate [...] RecordedSex Assigned at BirthNot on file Legal FjoAyqr1909/19/2022 7:58 PM EDTGender IdentityNot on fileSexual Orientation Not on filedocumented as of this encounter Progress Notes * Jr. Fam Boyer, DO - 04/28/2025 9:00 AM EDT Images from the original note were not included. HISTORY OF PRESENT ILLNESS: EST PT Manish Root is an 79 y.o. @ male. (EST PT) - RECHECK (L) HIP S/P MDP RX 04/14/25 ; FLARE UP 04/25/25 - INCREASED SORENESS FOLLOWING AMBULATION HGB A1C 12/09/24 - 7.1 XRAY (L) HIP 04/14/25 IN EPIC XRAY (L) HIP 10/13/24 @[facility] (IN CHANGE) MRI (L) HIP 03/12/25 @[facility] (IN CHANGE) LABS (C-REACTIVE PROTEIN, SED RATE, URIC ACID, RHEUM PANEL / RAFAEL) 12/09/24 IN LABS MDP 04/14/25, 12/09/24 NO CORTISONE INJ PT @[facility] - NO RELIEF NO PAIN MGMT S/P MDP - MINIMAL RELIEF. PRESENTS AMBULATING WITH CANE - USING AT MOST TIMES. INTERMITTENT LATERALDISCOMFORT - WORSE WITH SITTING TO STANDING. DENIES N/T. SOME STIFFNESS AFTER PROLONGED SITTING. DENIES SWELLING / WEAKNESS. LIMITED ROM WITH PIVOTING. UNABLE TO LIE ON (R) SIDE. DENIES WAKING HS. DENIES LOCKING / POPPING. OCCASIONAL GIVING OUT. TRAMADOL - HAS NOT TAKEN. CELEBREX BID - UNSURE OF RELIEF. HAS TRIED ICING - NO RELIEF. OCCASIONALLY USING JOINT RELIEF GEL - NO RELIEF. ADMITS INTERMITTENT (L) KNEE DISCOMFORT. ASA 81MG DAILY ALLERGIES: Allergies[1] HOME MEDICATIONS: Current Outpatient Medications Medication Instructions aspirin 81 mg, Every 24 hours celecoxib (CELEBREX) 200 mg, Oral, 2 times daily cholecalciferol (VITAMIN D-3) 25 mcg, Every 24 hours fenofibrate micronized (LOFIBRA) 134 mg, Oral, Daily latanoprost (Xalatan) 0.005 % ophthalmic solution 1 drop, Daily metFORMIN (GLUCOPHAGE) 500 mg, Oral, Daily metoprolol succinate XL (TOPROL-XL) 25 mg, Oral, Daily, Do not crush or chew. tiZANidine (ZANAFLEX) 4 mg, Oral, 2 times daily traMADol (ULTRAM) 100 mg, Oral, Every 8 hours PRN PHYSICAL EXAM: Hip Musculoskeletal Exam Gait Limp: left Inspection Leg length disparity: no discrepancy Left Erythema: none Ecchymosis: none Edema: none Deformity: none Palpation Left Increased warmth: none Tenderness: present Greater trochanteric region pain: moderate Pubic rami pain: moderate Lower lumbar region pain: moderate Range of Motion Left Left hip range of motion is within functional limits. Active ROM: pain. Passive ROM: pain. Active extension: 15. Passive extension: 15. Active flexion: 80. Passive flexion: 80. Active internal rotation: 20. Passive internal rotation: 20. Active external rotation: 35. Passive external rotation: 35. Active adduction: 15. Passive adduction: 15. Active abduction: 20. Passive abduction: 20. Range of motion additional comments: Terminal motion on IR and ER limited by pain. Strength Left Left hip strength is normal. Extension: 5/5. Flexion: 4+/5. Flexion is affected by pain. Internal rotation: 5/5. External rotation: 5/5. Adduction: 5/5. Abduction: 4+/5. Abduction is affected by pain. Neurovascular Left Left hip neurovascular exam is normal. Pulses - PT: normal Posterior tibial: 2+ Special Tests Left Log roll test: positive General Constitutional: appears stated age Labored breathing: no Psychiatric: normal mood and affect Neurological: alert and oriented x3 Skin: intact Lymphadenopathy: none Vitals: There is no height or weight on file to calculate BMI. Tobacco Use: Low Risk (04/30/2025) Patient History Smoking Tobacco Use: Never Smokeless Tobacco Use: Never Passive Exposure: Never Alcohol Use: Unknown (07/29/2023) AUDIT-C Frequency of Alcohol Consumption: 4 or more times a week Average Number of Drinks: Not on file Frequency of Binge Drinking: Not on file Recent Concern: Alcohol Use - Alcohol Misuse (07/29/2023) AUDIT-C Frequency of Alcohol Consumption: 4 or more times a week Average Number of Drinks: 3 or 4 Frequency of Binge Drinking: Never IMAGING: Procedures Orders Placed This Encounter Procedures Urine culture Standing Status: Future Number of Occurrences: 1 Expected Date: 04/28/2025 Expiration Date: 04/28/2026 Print requisition?: No XR hip left 2 or 3 views Standing Status: Future Number of Occurrences: 1 Expected Date: 04/28/2025 Expiration Date: 04/28/2026 Reason for exam:: LT DOM May ; PELVIS + LATERAL LT HIP APTT Standing Status: Future Number of Occurrences: 1 Expected Date: 04/28/2025 Expiration Date: 04/28/2026 Print requisition?: No CBC and differential Standing Status: Future Number of Occurrences: 1 Expected Date: 04/28/2025 Expiration Date: 04/28/2026 Print requisition?: No Comprehensive metabolic panel Standing Status: Future Number of Occurrences: 1 Expected Date: 04/28/2025 Expiration Date: 04/28/2026 Print requisition?: No Protime-INR Standing Status: Future Number of Occurrences: 1 Expected Date: 04/28/2025 Expiration Date: 04/28/2026 Print requisition?: No Urinalysis with reflex microscopic Standing Status: Future Number of Occurrences: 1 Expected Date: 04/28/2025 Expiration Date: 04/28/2026 Print requisition?: No ECG 12 lead Standing Status: Future Expected Date: 04/28/2025 Expiration Date: 04/28/2026 ASSESSMENT: ICD-10-CM 1. Primary osteoarthritis of left hip M16.12 APTT CBC and differential Comprehensive metabolic panel Protime-INR ECG 12 lead Urine culture Urinalysis with reflex microscopic XR hip left 2 or 3 views APTT CBC and differential Comprehensive metabolic panel Protime-INR Urine culture Urinalysis with reflex microscopic XR hip left 2 or 3 views 2. Pre-op evaluation Z01.818 APTT CBC and differential Comprehensive metabolic panel Protime-INR ECG 12 lead Urine culture Urinalysis with reflex microscopic XR hip left 2 or 3 views APTT CBC and differential Comprehensive metabolic panel Protime-INR Urine culture Urinalysis with reflex microscopic XR hip left 2 or 3 views PLAN: We discussed his case with him at length including his x-rays, physical exam, symptoms, response toMedrol Dosepak and surgical and nonsurgical treatment options. The patient is requesting a left total hip arthroplasty and we will see him back on the day of surgery. We have discussed both surgical and nonsurgical treatment options with the patient and the risks and benefits associated with both. The patient is requesting surgical intervention because the patient's symptoms were affecting the patient's activities of daily living and ability to sleep. The patient's symptoms were unresponsive to outpatient treatment options. After lengthy discussions involving but not limited to both surgical and nonsurgical treatment options the patient has requested surgical intervention and we will see them back on the day of surgery. The patient understands the risks ofsaid treatment. We have discussed both surgical and nonsurgical treatment options with the patient at length and the risks and benefits associated with both. The patient is requesting surgical intervention because they have not responded to outpatient treatment options including but not limited to rest ice, and home exercise program. Pain and decreased range of motion are affecting the patient''s ability to sleep and activities of daily living and we have recommended surgical intervention. We recommended surgery in the form of a total hip arthroplasty. Factors including the patient's age and longevity of pros thesis, usual postoperative course, and possible need for revision in the future, and leg length inequality postoperatively were discussed at length. We have discussed with the patient that this is amajor orthopedic procedure. We discussed that the patient may require more than the average 30 MED limited and may require greater than 7 days narcotic treatment postoperatively. Therefore, patient'snarcotic usage will be tailored on an individual basis. If this patient at the time of surgery has any of the following: Morbidities including but not limited to history of falling, cognitive impairment, BMI greater than 30, end- stage renal disease, respiratory failure, heart failure, kidney failure, liver failure, diabetes, cardiac event in the last year, sleep apnea, disorder, excessive tobaccouse, if at the time of surgery the patient is greater than 80 years old, or the patient requires discharge to a senior living facility, the patient may require to have additional inpatient hospitalstay days following the surgery. Physical therapy is contraindicated in this patient''s case because of the [id number] articulation of the patient's hip. Questions answered in laymen terms at the bedside. The diagnosis, home exercise plan and any ongoing restrictions/ recommendations reviewed. If unable to be reached in office, I recommend evaluation at nearest Emergency Room if any symptoms worsened or new symptoms develop for requiring urgent evaluation. [1] Allergies Allergen Reactions Statins GI intolerance documented in this encounter Plan of Treatment DateTypeDepartmentCare Team (Latest Contact Info)Aujblgdlnod96/18/2025 9:20 AM ESTOffice Visit [facility] [address] [place] [address] Mayte Stevens, FLIGHT ENGINEER-SECOND FLOOR OPERATOR [address] [place], [place] [phone] 06/16/2025 1:00 PM ESTOffice Visit [facility] [address] [place] [address] Jr. Fam Boyer DO [address] [place] [address] 07/20/2025 8:30 AM ESTOffice Visit [facility] [address] [place] [phone] Leela Schwartz MD [address] [place] [address] NameTypePriorityAssociated DiagnosesOrder ScheduleAPTTLabRoutine Primary osteoarthritis of left [...] MemberRelationshipSpecialtyStart DateEnd Date Mason Johnson MD [address] [place] [address] PCP - GeneralInternal Tpmepklo33/11/24 Mason Johnson MD [address] [place] [address] PCP - Medical [place]07/08/2511documented as of this encounter
--- OUTSIDE RECORDS SUMMARY | 2025-04-29 09:12 | XMS_ITS | Encounter Summary ---
Author Organization [facility] Address [address] [place], [place] [id number] Care Team Providers Care Flat Knitter Name Role Phone Dee Tirado KARLOS Unavailable [phone] John Valladares MD Unavailable [phone] Natalie Cadena APRN.HEMATOLOGY SPECIALIST Unavailable [phone] Yordan Randolph MD Unavailable [phone] Marysol Purvis CLINICAL MICROBIOLOGIST Unavailable Unavailable Alex OLIVAS MD, Mason Regan Primary Care Provider [phone] Source Comments In the event this information is protected by the Federal Confidentiality of Alcohol and Drug AbusePatient Records regulations: The Federal rules restrict any use of the information to criminally investigate or prosecute any alcohol or drug abuse patient.[facility] Reason for Referral * MRI/CT (Routine) - ClosedSpecialtyDiagnoses / ProceduresReferred By Contact Referred To ContactCT IMAGING Diagnoses 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 Stage 3 chronic kidney disease, unspecified whether stage 3a or 3b CKD (HCC) Procedures CT CHEST W IVCON DIAGNOSTIC COMPUTED TOMOGRAPHY THORAX W/CONTRAST John Valladares MD [address] [place] [address] [place] [address] Phone: tel: fax: [place] [address] Referral IDStatusReasonStart DateExpiration DateVisits RequestedVisits [id number] Auto-Generated Referral * MRI/CT (Routine) - ClosedSpecialtyDiagnoses / ProceduresReferred By Contact Referred To ContactCT IMAGING Diagnoses 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 Stage 3 chronic kidney disease, unspecified whether stage 3a or 3b CKD (HCC) Procedures CT NECK SOFT TISSUE W IVCON CT SOFT TISSUE NECK W/CONTRAST MATERIAL John Valladares MD [address] [facility] [place] [address] Phone: tel: fax: [place] [address] Referral IDStatusReasonStart DateExpiration DateVisits RequestedVisits [id number] Auto-Generated Referral Reason for Visit * ReasonCommentsRadiology CT * MRI/CT (Routine) - ClosedSpecialtyDiagnoses / ProceduresReferred By Contact Referred To ContactCT IMAGING Diagnoses 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 Stage 3 chronic kidney disease, unspecified whether stage 3a or 3b CKD (HCC) Procedures CT NECK SOFT TISSUE W IVCON CT SOFT TISSUE NECK W/CONTRAST MATERIAL John Valladares MD [address] [facility] [place] [address] Phone: tel: fax: [place] [address] Referral IDStatusReasonStart DateExpiration DateVisits RequestedVisits [id number] Auto-Generated Referral Encounter Details DateTypeDepartmentCare Team (Latest Contact Info)Vspfwvozrjv66/23/2025 9:12 AM EDT - 04/29/2025 11:59 PM EDTHospital Encounter Radiology Pet CT [address] [place] [address] 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 Last address used for [address] [place] [address]11/07/2022Sex and Gender InformationValueDate Recorded Sex Assigned at BirthNot on fileLegal FcpQrcp15/02/2012 10:15 AM ESTGender IdentityNot on fileSexual OrientationNot on filedocumented as of this encounter Functional Status * Are you deaf or do you have serious difficulty hearing?AnswerDate of ZccoqffxxkIlpfmlCk12/23/2014 11:20 AM Jasmyn Anthony * Are you blind or do you have serious difficulty seeing, even when wearing glasses?AnswerDate of BzkdidpqgeGmrpryCm10/23/2014 11:20 AM Jasmyn Anthony * Do you have serious difficulty walking or climbing stairs?AnswerDate of AahzordzjdMdwryqCb11/23/2014 11:20 AM Jasmyn Anthony * Do you have difficulty dressing or bathing?AnswerDate of AssessmentAuthorNo 04/29/2014 11:20 AM Jasmyn Anthony * Because of a physical, mental, or emotional condition, do you have difficulty doing errands alone such as visiting a doctor's office or shopping?AnswerDate of ErztinbiqyWvdxlkHp91/23/2014 11:20 AM Jasmyn Anthony documented as of this encounter Mental Status * Because of a physical, mental, or emotional condition, do you have serious difficulty concentrating, remembering, or making decisions?AnswerEntry Date LptzrlSc99/23/2014 11:20 AM Jasmyn Anthony documented in this encounter Medications at Time of Discharge MedicationSigDispense QuantityRefillsLast FilledStart DateEnd Date tiZANidine (ZANAFLEX) 4 mg tablet Take 4 mg by mouth.04/21/2025 traMADol (ULTRAM) 50 mg tablet Take 50 mg by mouth as needed.03/26/2025 cholecalciferol, Vitamin D3, (VITAMIN D3) 1,250 mcg (50,000 unit) cap capsule Take 1 capsule by mouth one time a week.10/01/2023 latanoprost (XALATAN) 0.005 % ophthalmic solution instill 1 (ONE) DROP IN BOTH EYES AT HTVYOEQ0205/01/2023 ergocalciferol 50,000 unit capsule (VITAMIN D2, DRISDOL) TAKE 1 CAPSULE BY MOUTH TQQHZH8307/05/2022 metFORMIN (GLUCOPHAGE) 500 mg tablet Take 500 [...] theCT contrast administration guidelines link. 1 each 11/04/2024documented as of this encounter Progress Notes * [...] PATIENT PRESENTS WITH AN IMPLANTABLE OR ATTACHED HAND SPINNER: No RADIOLOGY DEPARTMENT: CT; Exam(s) Completed: Chest [...] Plan of Treatment DateTypeDepartmentCare Team (Latest Contact Info)Doaqlrwzyln29/22/2026 8:15 AM EDTAppointment Radiology Pet CT [address] [place] [address] [place] [address] CT Chest and neck with axmytypv50/29/2026 10:00 AM EDTOffice Visit Radiation Oncology [address] [place] [address] [place] [address] Yordan Randolph MD [address] [place] [address] [place] [address] 1 year follow up05/05/2026 10:40 AM EDTVisit (SP) Office Hematology/Oncology [address] [place] [address] [place] [address] John Valladares MD [address] [place] [address] [place] [address] 1 year follow up for lab and ct scan resultsdocumented as of this encounter Procedures Procedure NamePriorityDate/TimeAssociated DiagnosisCommentsCT CHEST W IVCON Afakubb1204/29/2025 10:27 AM EDT 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 Stage 3 chronic kidney disease, unspecified whether stage 3a or 3b CKD (HCC) CT NECK SOFT TISSUE W HXIWNGhjfgeh30/23/2025 10:27 AM EDT 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 If you are unable to reach us at the number above, please feel free to contact [facility] eRadiology at [phone]. Narrative 04/29/2025 2:07 PM EDT * * [...] images: No additional findings. Procedure Note Provider, [facility] - 04/29/2025 * * *Final Report* * * DATE OF EXAM: Apr 29 2025 10:27AM [facility] [place] 0539 - CT CHEST W IVCON / [...] any questions regarding this interpretation, please call [phone]. If you are unable to reach us at the number above, please feel free to contact [facility] eRadiology at [phone]. Authorizing ProviderResult TypeResult StatusVivek Abhyankar MDCT-PAMAFinal Result [...] any questions regarding this interpretation, please call [phone]. If you are unable to reach us at the number above, please feel free to contact [facility] at [phone]. Narrative 04/29/2025 11:23 AM EDT * * [...] accession. Other: Not applicable. Procedure Note Provider, [facility] - 04/29/2025 * * *Final Report* * * DATE OF EXAM: Apr 29 2025 10:27AM [facility] [place] 0013 - CT NECK SOFT TISSUE W [...] any questions regarding this interpretation, please call [phone]. If you are unable to reach us at the number above, please feel free to contact [facility] eRadiology at [phone]. Authorizing ProviderResult TypeResult StatusVivek Abhyankar MDCT-PAMAFinal Result * THYROID STIMULATING HORMONE (04/29/2025 9:13 AM EDT)ComponentValueRef Range Test MethodAnalysis TimePerformed AtPathologist SignatureTSH2.7600.270 - 4.200 mIU/L1 9:[address] [facility] MAIN LABSpecimen (Source) Anatomical Location / LateralityCollection Method / VolumeCollection Time Received TimeBloodBLOOD SPECIMEN / UnknownVenipuncture / Qasyhii3204/29/2025 9:13 AM EDT1 9:22 AM EDT Narrative Authorizing ProviderResult TypeResult StatusG Jeyson Randolph MDLABORATORYFinal ResultPerforming OrganizationAddressCity/State/ZIP CodePhone Number [facility] MA[facility] LAB [address] [place] [address], * (ABNORMAL) COMPLETE BLOOD COUNT AND DIFFERENTIAL (04/29/2025 9:13 AM EDT) ComponentValueRef RangeTest MethodAnalysis TimePerformed AtPathologist SignatureWBC5.883.70 - 11.00 k/uL04/29/2025 9:25 AM EDTNOST. [facility]PH[facility] LABRBC4.504.20 - 6.00 m/uL04/29/2025 9:25 AM EDBECKLEY [facility] PYAQyxlgocqyw06.213.0 - 17.0 g/dL04/29/2025 9:25 AM EDT [facility] TDZXssizhdwzm10.339.0 - 51.0 %04/29/2025 9:25 AM EDTNOST. [facility]PH[facility] VGXTDW23.680.0 - 100.0 fL 04/29/2025 9:25 AM EDTPRESTON [facility] NFWOWO78.326.0 - 34.0 pg04/29/2025 9:25 AM EDTPRESTON [facility]OR[facility] VKPXNCZ67.830.5 - 36.0 g/dL04/29/2025 9:25 AM EDTNORTSOUTHWEST [facility] LABRDW-CV14.5 11.5 - 15.0 %04/29/2025 9:25 AM EDTPRESTON [facility] LAB Platelet Lkqla396553 - 400 k/uL04/29/2025 9:25 AM EDTPRESTON MEMOR[facility] LABMPV9.89.0 - 12.7 fL04/29/2025 9:25 AM EDTPRESTON MEMORIAL [facility] LABNeutrophils %79.1%04/29/2025 9:25 AM EDBECKLEY [facility] LABAbs Neut4.661.45 - 7.50 k/uL04/29/2025 9:25 AM EDB[facility]KLEY [facility] LABLymphocytes %9.9%04/29/2025 9:25 AM [facility] LABAbs Lymph0.58(L)1.00 - 4.00 k/uL04/29/2025 9:25 AM EDBECKLEY [facility] LABMonocytes %7.8%04/29/2025 9:25 AM EDT [facility] LABAbs Mono0.46<0.87 k/uL04/29/2025 9:25 AM EDBECKLEY [facility] LABEosinophils %1.4%04/29/2025 9:25 AM [facility] LABAbs Eosin0.08<0.46 k/uL04/29/2025 9:25 AM [facility] LABBasophils %0.9%04/29/2025 9:25 AM [facility] LABAbs Baso0.05<0.11 k/uL04/29/2025 9:25 AM [facility] LABImmature Granulocytes %0.9% 04/29/2025 9:25 AM [facility] LABAbs Immature Gran 0.05<0.10 k/uL04/29/2025 9:25 AM [facility] LABNRBC 0.0/100 WBC04/29/2025 9:25 AM [facility] LABAbsolute nRBC<0.01<0.01 k/uL04/29/2025 9:25 AM [facility] LABDiff TgwoQace76/23/2025 9:25 AM [facility] LAB Specimen (Source)Anatomical Location / LateralityCollection Method / Volume Collection TimeReceived TimeBloodBLOOD SPECIMEN / UnknownVenipuncture / Ymizcwm9504/29/2025 9:13 AM EDT1 9:22 AM EDT Narrative Authorizing ProviderResult TypeResult StatusJohn Valladares MDLABORATORYFinal ResultPerforming OrganizationAddressCity/State/ZIP CodePhone Number [facility] [address] [place] [address] * (ABNORMAL) COMPREHENSIVE METABOLIC PANEL (04/29/2025 9:13 AM EDT)Component ValueRef RangeTest MethodAnalysis TimePerformed AtPathologist Signature Protein, Total7.16.3 - 8.0 g/dL04/29/2025 9:56 AM [facility] LABAlbumin4.23.9 - 4.9 g/dL04/29/2025 9:56 AM [facility] LABCalcium, Total10.28.5 - 10.2 mg/dL04/29/2025 9:56 AM [facility] LABBilirubin, Total0.50.2 - 1.3 mg/dL 04/29/2025 9:56 AM [facility] LABAlkaline Jdkdhzcqink3424 - 113 U/L1 9:56 AM [facility] RVWYTB5393 - 40 U/L1 9:56 AM EDBECKLEY [facility] AYTXQY6689 - 54 U/L1 9:56 AM [facility] RGZQclkqtg995(H)74 - 99 mg/dL04/29/2025 9:56 AM [facility] LABComment: The [place] Diabetes Association (ADA) provides guidance for cutoff [...] Standards of Medical Care in Diabetes 2016, [place] Diabetes Association. Diabetes Care. 2016.39(Suppl 1). MGD578 - 24 mg/dL04/29/2025 9:56 AM [facility] LAB Creatinine1.070.73 - 1.22 mg/dL04/29/2025 9:56 AM [facility] HMKMigtuq654214 - 144 mmol/L1 9:56 AM [facility] LABPotassium4.53.7 - 5.1 mmol/L1 9:56 AM [facility] QSGLgzgiwou30791 - 107 mmol/L1 9:56 AM EDT [facility] DITMP92890 - 30 mmol/L1 9:56 AM T [facility] LABAnion Gyd941 - 15 mmol/L1 9:56 AM [facility] LABEstimated Glomerular Filtration Rate70 >=60 mL/min/1.73m 04/29/2025 9:56 AM [facility] LABComment:Estimated Glomerular Filtration Rate (eGFR) is calculated [...] VolumeCollection TimeReceived TimeBloodBLOOD SPECIMEN / UnknownVenipuncture / Qyaticv4404/29/2025 9:13 AM EDT1 9:22 AM EDT Narrative Authorizing ProviderResult TypeResult StatusVivek Jacquelyn WELCHLABORATORYFinal ResultPerforming OrganizationAddressCity/State/ZIP CodePhone Number [facility] [address] [place] [address] documented in this encounter Visit Diagnoses Diagnosis 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 Other nonspecific abnormal finding of lung field Stage 3 chronic kidney disease, unspecified whether stage 3a or 3b CKD (HCC) Other specified disorders of thyroid documented in this encounter Care Teams Team MemberRelationshipSpecialtyStart DateEnd Date Mason Johnson II, MD [address] [place] [address] PCP - GeneralInternal Sqblxhqb29/30/[address] [place] [address] Registered DietitianNutrition08/20/22 John Valladares MD [facility] [address] [facility] [place] [address] PhysicianHematology/Oncology08/21/22 Natalie Cadena APRN.HEMATOLOGY SPECIALIST [facility] [address] [place] [address] Nurse PractitionerHematology/Oncology08/21/22 Yordan Randolph MD [address] [place] [address] [place] [address] PhysicianRadiation Oncology08/21/22 Marysol Purvis LSW Social Worker09/07/22documented as of this encounter
--- OUTSIDE RECORDS SUMMARY | 2025-04-30 11:45 | XMS_ITS | Encounter Summary ---
Author Organization [facility] Address [address] [place] [address] Care Team Providers Care Human Resources Coordinator Name Role Phone Mason Johnson MD Primary Care Provider [phone] Mason Johnson MD Unavailable [phone] Reason for Visit * ReasonCommentsdiscuss presurgical instructions for ASAsurgical clearance Encounter Details DateTypeDepartmentCare Team (Latest Contact Info)Tmqzwvytwux99/24/2025 11:45 AM EDTOffice Visit [facility] [address] [facility] [address] [place] [id number] Mason Johnson MD 112 [facility] 110 [place], [place] [id number] Primary osteoarthritis of left hip (Primary Dx); 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, without long-term current use of insulin (HCC); 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; Abnormal EKG; History of heart artery stent Social History Tobacco UseTypesPacks/DayYears UsedDateSmoking Tobacco: NeverPassive [...] times a week06/10/2023How often do you attend pentecostalism or restorationism services?Never06/10/2023o you belong to any clubs or organizations such as pentecostalism groups, unions, fraternal or athletic groups, or school groups?No 06/10/2023How often do you attend meetings of the clubs or organizations you belong to?Never06/10/2023re you , , , , never , or living with a partner?Vdzrkgp2006/10/2023UDIT-CAnswerDate RecordedQ1: How often do you have a drink containing alcohol?4 or more times a week 07/29/2023verage Number of DrinksNot on file07/29/2023Frequency of Binge DrinkingNot on file07/29/2023Overall Financial Resource Strain (CARDIA)Answer Date RecordedHow hard is it for you to pay for the very basics like food, housing, medical care, and heating?Very hard06/10/2023HQ-2AnswerDate Recorded Patient Health Questionnaire-2 Pgoyw021[facility] [place] of Occup[facility] - Occupational Stress QuestionnaireAnswerDate [...] steady place to sleep or slept in [facility] (including now)?No06/10/2023 Sex and Gender InformationValueDate RecordedSex Assigned at BirthNot on file Legal EszPzth9409/19/2022 7:58 PM EDTGender IdentityNot on fileSexual Orientation Not on filedocumented as of this encounter Last Filed Vital Signs Vital SignReadingTime TakenCommentsBlood Kuvklznd479/7604/30/2025 11:43 AM EDT Liats791304/30/2025 11:43 AM EDTTemperature--Respiratory Rate--Oxygen Saturation 97%04/30/2025 11:43 AM EDTInhaled Oxygen Concentration--Vipsvg56.4 kg (197 lb) 04/30/2025 11:43 AM MBBTbzcyw638.2 cm (5' 7 )04/30/2025 11:43 AM EDTBody Mass Index30.8504/30/2025 11:43 AM EDTdocumented in this encounter Progress Notes * Mason Johnson MD - 04/30/2025 11:45 AM EDT Images from the original note were not included. Subjective Patient ID: Manish Root is a 79 y.o. male who presents for discuss presurgical instructions forASA and surgical clearance. Pt needs to discuss discontinuing ASA prior to hip replacement Surgeon would like him to hold medication for 10 days Pt surgery is sched 05/13/25 PAT completed labs and EKG Dr Mcdaniel has him sched at the outpatient surgical center 05/13/25 left hip replacement Current Outpatient Medications on File Prior to [...] mg by mouth Daily) 100 tablet 3 metoprolol succinate XL (Toprol-XL) 25 MG 24 hr tablet Take 1 tablet (25 mg) by mouth Daily Do not crush or chew. (Patient taking differently: Take 25 mg by mouth Daily Do not crush or chew.) 90 tablet 3 tiZANidine (Zanaflex) 4 MG tablet Take 1 tablet (4 mg) by mouth in the morning and 1 tablet (4 mg) before bedtime. 60 tablet 3 traMADol (Ultram) 50 MG tablet Take 2 tablets (100 mg) by mouth every 8 (eight) hours if needed forsevere pain 40 tablet 1 [DISCONTINUED] methylPREDNISolone (Medrol Dospak) 4 MG tablets [...] 07/31/2022 with biopsy, Timmis Visit Vitals BP 136/76 Pulse 70 Ht 5' 7 Wt 197 lb SpO2 97% BMI 30.85 kg/m?? Smoking Status Never BSA 2.06 m?? Review of Systems Objective Physical Exam Constitutional: [...] Content: Thought content normal. Judgment: Judgment normal. Clinisync Result Encounter on 04/29/2025 Component Date Value Ref Range Status SODIUM 04/29/2025 139 136 - 145 mmol/L Final POTASSIUM 04/29/2025 4.1 3.5 - 5.1 mmol/L Final CHLORIDE 04/29/2025 100 98 - 107 mmol/L Final CARBON DIOXIDE 04/29/2025 29.2 21.0 - 32.0 mmol/L Final ANION GAP 04/29/2025 13.9 Final GLUCOSE 04/29/2025 222 (H) 74 - 106 mg/dL Final BLOOD UREA NITROGEN 04/29/2025 16.0 7.0 - 18.0 mg/dL Final CREATININE 04/29/2025 1.18 0.70 - 1.30 mg/dL Final TBH EGFR-AF MALAYSIAN 04/29/2025 >60 >=60 mL/min/1.73m 2 Final TBH EGFR-NON AF MALAYSIAN 04/29/2025 59 (L) >=60 mL/min/1.73m 2 Final BUN CREATININE RATIO 04/29/2025 13.6 Final CALCIUM 04/29/2025 9.4 8.5 - 10.1 mg/dL Final BILIRUBIN TOTAL 04/29/2025 0.6 0.2 - 1.0 mg/dL Final ASPARTATE AMINO TRANSFERASE 04/29/2025 17 15 - 37 U/L Final ALANINE AMINOTRANSFERASE 04/29/2025 29 16 - 63 U/L Final ALKALINE PHOSPHATASE 04/29/2025 104 46 - 116 U/L Final TOTAL PROTEIN 04/29/2025 7.7 6.4 - 8.2 g/dL Final ALBUMIN LEVEL 04/29/2025 3.8 3.4 - 5.0 g/dL Final GLOBULIN 04/29/2025 3.9 g/dL Final ALBUMIN GLOBULIN RATIO 04/29/2025 1.0 Final PROTHROMBIN TIME 04/29/2025 11.3 9.0 - 11.6 sec Final TBH INR 04/29/2025 1.07 Final Comment: DESIRED INR: 2.0-3.0 CONDITIONS NOT LISTED BELOW 2.5-3.5 FOR PROSTHETIC HEART VALVE REPLACEMENT 2.5-3.5 RECURRENT THROMBOSIS PARTIAL THROMBOPLASTIN TIME 04/29/2025 29.8 22.3 - 36.2 sec Final TBH WBC 04/29/2025 6.2 4.0 - 11.0 10 3/uL Final TBH RBC 04/29/2025 4.76 4.70 - 6.10 10 6/uL Final TBH HGB 04/29/2025 14.1 14.0 - 18.0 g/dL Final TBH HCT 04/29/2025 42.5 42.0 - 54.0 % Final TBH MCV 04/29/2025 89.3 80.0 - 94.0 fL Final TBH MCH 04/29/2025 29.6 25.9 - 34.0 pg Final TBH MCHC 04/29/2025 33.2 29.9 - 35.2 g/dL Final TBH RDW 04/29/2025 14.3 11.0 - 15.0 % Final TBH PLT 04/29/2025 275 150 - 450 10 3/uL Final TBH MPV 04/29/2025 9.8 9.5 - 13.5 fL Final COLOR URINE 04/29/2025 LT. YELLOW YELLOW Final CLARITY URINE 04/29/2025 CLEAR CLEAR Final SPECIFIC GRAVITY URINE 04/29/2025 1.010 1.005 - 1.025 Final PH URINE 04/29/2025 6.5 5.0 - 9.0 Final PROTEIN URINE 04/29/2025 NEGATIVE NEG/TRACE mg/dL Final GLUCOSE URINE UA 04/29/2025 100 (A) NEGATIVE mg/dL Final BILIRUBIN URINE 04/29/2025 NEGATIVE NEGATIVE Final KETONES URINE 04/29/2025 NEGATIVE NEGATIVE mg/dL Final BLOOD URINE 04/29/2025 NEGATIVE NEGATIVE Final NITRITE URINE 04/29/2025 NEGATIVE NEGATIVE Final UROBILINOGEN URINE 04/29/2025 1.0 0.2 - 1.0 EU/dL Final LEUKOCYTE ESTERASE URINE 04/29/2025 NEGATIVE NEGATIVE Final URINE MICROSCOPIC INDICATED 04/29/2025 NO Final URINE CULTURE - [place] 04/29/2025 Preliminary Value: Urine Culture - [place] PEND Pending - Specimen sent to [facility]^Pending - Specimen sent to [facility] SEGMENTED NEUTROPHILS % MANUAL 04/29/2025 83.0 (H) 43.0 - 75.0 Final BAND NEUTROPHILS % 04/29/2025 3.0 0 - 5 % Final LYMPHOCYTES PERCENT MANUAL 04/29/2025 8.0 (L) 20.5 - 60.0 % Final MONOCYTES PERCENT MANUAL 04/29/2025 2.0 1.7 - 12.0 % Final EOSINOPHILS PERCENT MANUAL 04/29/2025 2.0 0.9 - 7.0 % Final BASOPHILS PERCENT MANUAL 04/29/2025 2.0 0.2 - 2.0 % Final SEGMENTED NEUT ABSOLUTE MANUAL 04/29/2025 5.14 1.4 - 6.5 10 3/uL Final BAND NEUTROPHILS ABSOLUTE 04/29/2025 0.2 0.0 - 0.3 10 3/uL Final LYMPHOCYTES ABSOLUTE MANUAL 04/29/2025 0.49 (L) 1.20 - 3.80 10 3/uL Final MONOCYTES ABSOLUTE MANUAL 04/29/2025 0.12 (L) 0.30 - 0.80 10 3/uL Final EOSINOPHILS ABSOLUTE MANUAL 04/29/2025 0.12 0.00 - 0.70 10 3/uL Final BASOPHILS ABS MANUAL 04/29/2025 0.12 (H) 0.00 - 0.10 10 3/uL Final Office Visit on 03/26/2025 Component Date Value Ref Range Status CHOLESTEROL, TOTAL 03/26/2025 152 <200 mg/dL Final HDL CHOLESTEROL 03/26/2025 54 > OR = 40 mg/dL Final TRIGLYCERIDES 03/26/2025 82 <150 mg/dL Final LDL CHOLESTEROL 03/26/2025 82 mg/dL (calc) Final Comment: Reference range: <100 Desirable range <100 mg/dL for primary prevention; <70 mg/dL for patients with CHD or diabetic patients with > or = 2 CHD risk factors. LDL-C is now calculated using the Monroe-Alverto calculation, which is a validated novel method providing better accuracy than the Friedewald equation in the estimation of LDL-C. Monroe GAN et al. TITI. 2013;310(19): 4839-4154 (http://education.[employer].com/faq/JMO307) CHOL/HDLC RATIO 03/26/2025 2.8 <5.0 (calc) Final NON HDL CHOLESTEROL 03/26/2025 98 <130 mg/dL (calc) Final Comment: For patients with diabetes plus 1 major ASCVD risk factor, treating to a non-HDL-C goal of <100 mg/dL (LDL-C of <70 mg/dL) is considered a therapeutic option. CREATININE, RANDOM URINE 03/26/2025 71 20 - 320 mg/dL Final ALBUMIN, URINE 03/26/2025 0.8 See Note: mg/dL Final Comment: Reference Range: Reference Range Not established ALBUMIN/CREATININE RATIO, RANDOM U* 03/26/2025 11 <30 mg/g creat Final Comment: The ADA defines abnormalities in albumin excretion as follows: Albuminuria Category Result (mg/g creatinine) Normal to Mildly increased <30 Moderately increased 30-299 Severely increased > OR = 300 The ADA recommends that at least two of three specimens collected within a 3-6 month period be abnormal before considering a patient to be within a diagnostic category. Glucose 03/26/2025 183 (H) 65 - 99 mg/dL Final Comment: Fasting reference interval For someone without known diabetes, a glucose value >125 mg/dL indicates that they may have diabetes and this should be confirmed with a follow-up test. BUN 03/26/2025 17 7 - 25 mg/dL Final Creatinine 03/26/2025 1.28 (H) 0.70 - 1.22 mg/dL Final EGFR 03/26/2025 56 (L) > OR = 60 mL/min/1.73m2 Final BUN/CREATININE RATIO 03/26/2025 13 6 - 22 (calc) Final Sodium 03/26/2025 139 135 - 146 mmol/L Final Potassium, Bld 03/26/2025 4.3 3.5 - 5.3 mmol/L Final Chloride 03/26/2025 102 98 - 110 mmol/L Final Carbon Dioxide 03/26/2025 27 20 - 32 mmol/L Final Calcium 03/26/2025 9.1 8.6 - 10.3 mg/dL Final PROTEIN, TOTAL 03/26/2025 6.5 6.1 - 8.1 g/dL Final ALBUMIN 03/26/2025 4.0 3.6 - 5.1 g/dL Final GLOBULIN 03/26/2025 2.5 1.9 - 3.7 g/dL (calc) Final ALBUMIN/GLOBULIN RATIO 03/26/2025 1.6 1.0 - 2.5 (calc) Final BILIRUBIN, TOTAL 03/26/2025 1.0 0.2 - 1.2 mg/dL Final ALKALINE PHOSPHATASE 03/26/2025 73 35 - 144 U/L Final AST 03/26/2025 29 10 - 35 U/L Final ALT 03/26/2025 49 (H) 9 - 46 U/L Final Assessment/Plan Diagnoses and all orders for this visit: Primary osteoarthritis of left hip - Needs hip replacement. I am asked to medically clear. PAT was reviewed. EKG with new RBBB. He is sedentary due to this condition. He has an appt with Cardiology, Dr Sherwood in 2 weeks. 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 Continue current treatment plan as previously outlined without changes. 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 I do not have his Cardiac Cath report, it was done 10 years ago in [place]. He has not seen a Personal Fitness Manager or had any cardiac evaluation in 10 years.He is at high risk for occult disease. Will order a stress test, cannot due an exercise test. - Stress test with myocardial perfusion; Future Abnormal EKG - New RBBB. History of heart artery stent - On ASA, Ortho wants to stop it 10 days prior. I am not sure whether he has a ANGELO or bare metal. Will see Dr Sherwood, perhaps he can provide clarity on current recommendations. Other orders - Follow Up In Family Medicine; Future Follow up with Dr. Mason Johnson or their team in 2 weeks (on 05/14/2025). documented in this encounter Plan of Treatment DateTypeDepartmentCare Team (Latest Contact Info)Txskbgmtfzv39/18/2025 9:20 AM ESTOffice Visit [facility] [place] [facility] [address] [place] [address] Mayte Stevens, ENVIRONMENTAL AIR SPECIALIST-[employer] F[employer] WORKER [address] [place] [address] 06/16/2025 1:00 PM ESTOffice Visit [facility] [place] [facility] [address] [place] [address] Jr. 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
--- OUTSIDE RECORDS SUMMARY | 2025-05-06 10:00 | XMS_ITS | Encounter Summary ---
Author Organization [facility] Address [address] [place] [address] Care Team Providers Care Cable Engineer Name Role Phone Dee Tirado KARLOS Unavailable [phone] John Valladares MD Unavailable [phone] Natalie Cadena APRN.CHIP CRUSHER OPERATOR Unavailable [phone] Yordan Randolph MD Unavailable [phone] Marysol Purvis STRATEGIC BUSINESS DEVELOPMENT Unavailable Unavailable Alex OLIVAS MD, Mason Rgean Primary Care Provider [phone] Source Comments In the event this information is protected by the Federal Confidentiality of Alcohol and Drug AbusePatient Records regulations: The Federal rules restrict any use of the information to criminally investigate or prosecute any alcohol or drug abuse patient.[facility] Reason for Referral * MRI/CT (Routine) - AuthorizedSpecialtyDiagnoses / ProceduresReferred By ContactReferred To ContactCT IMAGING Diagnoses 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) Procedures CT CHEST W IVCON DIAGNOSTIC COMPUTED TOMOGRAPHY THORAX W/CONTRAST John Valladares MD [address] [place] [address] [place] [address] Phone: tel: fax: [place] [address] Referral IDStatusReasonStart DateExpiration DateVisits RequestedVisits [id number] Auto-Generated Referral * MRI/CT (Routine) - AuthorizedSpecialtyDiagnoses / ProceduresReferred By ContactReferred To ContactCT IMAGING Diagnoses 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) Procedures CT NECK SOFT TISSUE W IVCON CT SOFT TISSUE NECK W/CONTRAST MATERIAL John Valladares MD [address] [place] [address] [place] [address] Phone: tel: fax: [place] [address] Referral IDStatusReasonStart DateExpiration DateVisits RequestedVisits [id number] Auto-Generated Referral Reason for Visit * ReasonCommentsCancer of the base of tongue6 month follow up Encounter Details DateTypeDepartmentCare Team (Latest Contact Info)Frtjletnmfm86/30/2025 10:00 AM EDTVisit (SP) Office Hematology/Oncology [address] [place] [address] [place] [address] John Valladares MD [address] [place] [address] [place] [address] 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); Lung nodules; Stage 3 chronic kidney disease, unspecified whether stage 3a or 3b CKD (HCC); Primary osteoarthritis of hip, unspecified laterality Social History Tobacco UseTypesPacks/DayYears UsedDateSmoking Tobacco: NeverPassive Smoke Exposure: NeverSmokeless Tobacco: NeverAlcohol UseStandard Drinks/WeekComments Yes0 (1 standard drink = 0.6 oz pure alcohol)daily 3 beersPHQ-2AnswerDate RecordedPHQ-2 gddzq5225Area Deprivation IndexAnswerDate RecordedNational Score (1-100), lower number is lower jsfo709611/07/2022State Score (1-10), lower number is lower uwzb3743Data from: https://www.neighborhoodatlas.[facility]/. Last address used for [address] [place] [address]/07/2022Sex and Gender InformationValueDate Recorded Sex Assigned at BirthNot on fileLegal NerRfue03/02/2012 10:15 AM ESTGender IdentityNot on fileSexual OrientationNot on filedocumented as of this encounter Last Filed Vital Signs Vital SignReadingTime TakenCommentsBlood Wybgxocm088/5305/06/2025 10:08 AM EDT Wfjuu715905/06/2025 10:08 AM RGKHljymqrflwj38.6 ??C (97.8 ??F)05/06/2025 10:08 AM EDTRespiratory Acco5062 10:08 AM EDTOxygen Coejocvqqn55%05/06/2025 10:08 AM EDTInhaled Oxygen Concentration--Dogduc89.8 kg (200 lb 2.8 oz)05/06/2025 10:08 AM CMDFkrick694.9 cm (5' 5.71 )05/06/2025 10:08 AM EDTBody Mass Index32.6 05/06/2025 10:08 AM EDTdocumented in this encounter Functional Status * Are you deaf or do you have serious difficulty hearing?AnswerDate of ZhzdmjuurzGdpgdsGo90/23/2014 11:20 AM Jasmyn Anthony * Are you blind or do you have serious difficulty seeing, even when wearing glasses?AnswerDate of HattfzqpqtKaddqmTz10/23/2014 11:20 AM Jasmyn Anthony * Do you have serious difficulty walking or climbing stairs?AnswerDate of ZibtdudedcXidufdCo60/23/2014 11:20 AM Jasmyn Anthony * Do you have difficulty dressing or bathing?AnswerDate of AssessmentAuthorNo 04/29/2014 11:20 AM Jasmyn Anthony * Because of a physical, mental, or emotional condition, do you have difficulty doing errands alone such as visiting a doctor's office or shopping?AnswerDate of WbdwndwhsfGkckqtQo18/23/2014 11:20 AM Jasmyn Anthony documented as of this encounter Mental Status * Because of a physical, mental, or emotional condition, do you have serious difficulty concentrating, remembering, or making decisions?AnswerEntry Date WkgbagMj61/23/2014 11:20 AM Jasmyn Anthony documented in this [...] - You are scheduled to see a custom frame assembler before your hip operation, as required for [...] were not included. NAME: Manish Root NO.: [id number] DATE OF SERVICE: May 06, 2025 (Jacquelyn) [...] Ca Stage 3 - 2/5 LN + [place] regimen on protocol HPI: Updated Visit, May [...] prior to surgery. He has notseen a custom frame assembler in 15 years, but has an appointment [...] wounds or petechiae. ALLERGIES: ALLERGIES Allergen Reactions Gndzqnt-Jfr-Rez Red* GI Upset MEDICATIONS: celecoxib (CELEBREX) 200 [...] which included preparing to see the patient, plts-xt-kgfi patient care, completing clinical documentation, obtaining and/or reviewing separately obtained history, performing a medically appropriate examination, counseling and educating the patient/family/caregiver, ordering medications, tests, or procedures, independently interpreting results (not separately reported), communicating results to the patient/family/caregiver, and care coordination (not separately reported). John Valladares MD, CPE Hematology and Oncology Services Provided at: [place], [place] CC: Dr. Yordan Schwartz documented in this encounter Plan of Treatment DateTypeDepartmentCare Team (Latest Contact Info)Zrwhfbeoljv56/22/2026 8:15 AM EDTAppointment Radiology Pet CT [address] [facility] [place] [address] CT Chest and neck with tvxnwqeq20/29/2026 10:00 AM EDTOffice Visit Radiation Oncology [address] [place] [address] [place] [address] Yordan Randolph MD [address] [place] [address] [place] [address] 1 year follow up05/05/2026 10:40 AM EDTVisit (SP) Office Hematology/Oncology [address] [place] [address] [place] [address] John Valladares MD [address] [facility] [place] [address] 1 year follow up for lab and [...] Mason Johnson II, MD [address] [facility] [address] [place] [address] PCP - GeneralInternal Rejdwbvi09/30/[address] [facility] [facility] [place] [address] Registered DietitianNutrition08/20/22 John Valladares MD [address] [facility] [place] [address] PhysicianHematology/Oncology08/21/22 Natalie Cadena APRN.CHIP CRUSHER OPERATOR [address] [facility] [place] [address] Nurse PractitionerHematology/Oncology08/21/22 Yordan Randolph MD [address] [facility] [place] [address] PhysicianRadiation Oncology08/21/22 Marysol Purvis LSW Social Worker09/07/22documented as of this encounter
--- OUTSIDE RECORDS SUMMARY | 2025-05-06 10:30 | XMS_ITS | Encounter Summary ---
Author Organization [facility] Address [address] [place], [place] [address] Care Team Providers Care Plate Slitter And Inspector Name Role Phone Dee Tirado KARLOS Unavailable [phone] John Valladares MD Unavailable [phone] Natalie Cadena APRN.HOUSE BUILDER Unavailable [phone] Yordan Randolph MD Unavailable [phone] Marysol Purvis Unavailable Unavailable Alex OLIVAS MD, Mason Regan Primary Care Provider [phone] Source Comments In the event this information is protected by the Federal Confidentiality of Alcohol and Drug AbusePatient Records regulations: The Federal rules restrict any use of the information to criminally investigate or prosecute any alcohol or drug abuse patient.[facility] Reason for Visit * ReasonCommentsHead and Neck Cancer Encounter Details DateTypeDepartmentCare Team (Latest Contact Info)Mgwuyljcdxo13/30/2025 10:30 AM EDTOffice Visit Radiation Oncology [address] [facility] [place] [address] Yordan Randolph MD [address] [place] [address] [place] [address] Head and neck cancer (HCC) (Primary Dx); Acquired hypothyroidism Social History Tobacco UseTypesPacks/DayYears UsedDateSmoking Tobacco: NeverPassive Smoke Exposure: NeverSmokeless Tobacco: NeverAlcohol UseStandard Drinks/WeekComments Yes0 (1 standard drink = 0.6 oz pure alcohol)daily 3 beersPHQ-2AnswerDate RecordedPHQ-2 gczhm3315Area Deprivation IndexAnswerDate RecordedNational Score (1-100), lower number is lower sdtg297111/07/2022State Score (1-10), lower number is lower pkso3183Data from: https://www.neighborhoodatlas.[facility]/. Last address used for [address] [place] [address]/07/2022Sex and Gender InformationValueDate Recorded Sex Assigned at BirthNot on fileLegal IrbFflh35/02/2012 10:15 AM ESTGender IdentityNot on fileSexual OrientationNot on filedocumented as of this encounter Functional Status * Are you deaf or do you have serious difficulty hearing?AnswerDate of VmjsoqktekSovzzdLw84/23/2014 11:20 AM Jasmyn Anthony * Are you blind or do you have serious difficulty seeing, even when wearing glasses?AnswerDate of ExkfmzzfdfQrjwusOz64/23/2014 11:20 AM Jasmyn Anthony * Do you have serious difficulty walking or climbing stairs?AnswerDate of AgxoprymrzHomhcoGd77/23/2014 11:20 AM Jasmyn Anthony * Do you have difficulty dressing or bathing?AnswerDate of AssessmentAuthorNo 04/29/2014 11:20 AM Jasmyn Anthony * Because of a physical, mental, or emotional condition, do you have difficulty doing errands alone such as visiting a doctor's office or shopping?AnswerDate of FfmwqopmtaVdludlPc68/23/2014 11:20 AM Jasmyn Anthony documented as of this encounter Mental Status * Because of a physical, mental, or emotional condition, do you have serious difficulty concentrating, remembering, or making decisions?AnswerEntry Date ThhqfgLz98/23/2014 11:20 AM Jasmyn Anthony documented in this encounter Plan of Treatment DateTypeDepartmentCare Team (Latest Contact Info)Kgmjolxtxww86/22/2026 8:15 AM EDTAppointment Radiology Pet CT [address] [place] [address] [place] [address] CT Chest and neck with bakpstnn27/29/2026 10:00 AM EDTOffice Visit Radiation Oncology [address] [facility] [address] Yordan Randolph MD [address] [facility] [address] 1 year follow up05/05/2026 10:40 AM EDTVisit (SP) Office Hematology/Oncology [address] [facility] [place] [address] John Valladares MD [address] [place] [address] [place] [address] 1 year follow up for lab and [...] Mason Johnson II, MD [address] [facility] [address] [place] [address] PCP - GeneralInternal Ujrckjhg80/30/[address] [place] [address] [place] [address] Registered DietitianNutrition08/20/22 John Valladares MD [address] [place] [address] [place] [address] PhysicianHematology/Oncology08/21/22 Natalie Cadena APRN.HOUSE BUILDER [address] [place] [address] [place] [address] Nurse PractitionerHematology/Oncology08/21/22 Yordan Randolph MD [address] [place] [address] [place] [address] PhysicianRadiation Oncology08/21/22 Marysol Purvis LSW Social Worker09/07/22documented as of this encounter
--- NOTE | 2025-05-07 | NM_ITS ---
Patient Name: ANN RIVERA MR#: [id number] : 1945 Exam Date: 05/07/2025 Ordering Doctor: DR ORA STARKS M.D. RADIOLOGY REPORT PROCEDURE: NM JODI PERF SPECT REST STR COMPARISON: None. INDICATIONS: CORONARY ARTERY DISEASE, H/O HEART ARTERY STENT TECHNIQUE: Exam Description: Stress/Rest two day protocol gated SPECT Rest Imagin.9 mCi Tc-99m Cardiolite IV on 05/07/2025 Stress Imaging 25.6 mCi Tc-99m Cardiolite IV on 05/21/2025 Exercise Protocol: 0.4 mg Lexiscan given IV Heart Rate (bpm): Rest: 85 Max: 105 PMHR: 75 Blood Pressure: Rest: 145/87 Max: 161/88 Symptoms: Rest and peak stress ECG findings were pending and the EKG portion of the study was pending per attending physician [facility] . For more details please see separate cardiac stress test report. FINDINGS: QUALITY OF STUDY: Good PERFUSION DEFECT: LOCATION: Inferior SIZE: Small to medium SEVERITY: Mild TYPE: Fixed with adequate contractility and thickening consistent with diaphragmatic attenuation WALL MOTION: Normal LV SIZE: 84 mL. TID / TCD: 1.0 LVEF: Calculated EF 67%. SUMMARY: Normal myocardial perfusion imaging study CONCLUSION: Normal myocardial perfusion stress images without ischemia or infarction Normal left ventricle systolic function, ejection fraction 67% No transient ischemic dilatation, TID 1.0 EKG portion of stress test is reported separately Dictated by: Keke Benson MD on 05/24/2025 at 17:09 Approved by: Keke Benson MD on 05/24/2025 at 17:13
--- OUTSIDE RECORDS SUMMARY | 2025-05-07 08:43 | XMS_ITS | Encounter Summary ---
Author Organization [facility] Address [address] [place] [address] Care Team Providers Care Customer Response Representative Name Role Phone Mason Johnson MD Primary Care Provider [phone] Mason Johnson MD Unavailable [phone] Reason for Visit * ReasonOnset DateCommentsHold Irnrwh7304/28/2025 Encounter Details DateTypeDepartmentCare Team (Latest Contact Info)Hhxlamixofm08/22/2025Telephone [facility] [place] [facility] [address] [place] [phone] Georgiana Armenta MA Hold Asprin Social History [...] times a week06/10/2023How often do you attend methodist or confucianism services?Never06/10/2023o you belong to any clubs or organizations such as methodist groups, unions, fraternal or athletic groups, or school groups?No 06/10/2023How often do you attend meetings of the clubs or organizations you belong to?Never06/10/2023re you , , , , never , or living with a partner?Nzkpuvh9306/10/2023UDIT-CAnswerDate RecordedQ1: How often do you have a drink containing alcohol?4 or more times a week 07/29/2023verage Number of DrinksNot on file07/29/2023Frequency of Binge DrinkingNot on file07/29/2023Overall Financial Resource Strain (CARDIA)Answer Date RecordedHow hard is it for you to pay for the very basics like food, housing, medical care, and heating?Very hard06/10/2023HQ-2AnswerDate Recorded Patient Health Questionnaire-2 Oleqd480Finjordan [facility] [place] of Occupational Health - Occupational Stress QuestionnaireAnswerDate [...] RecordedSex Assigned at BirthNot on file Legal HssYfis0809/19/2022 7:58 PM EDTGender IdentityNot on fileSexual Orientation [...] 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 Fam Boyer DO [address] [place] [address] 07/20/2025 8:30 AM ESTOffice Visit [facility] [place] [facility] [address] [place] [address] Leela Schwartz MD [address] [place] [address] documented as of this encounter Visit Diagnoses Not on filedocumented in this encounter Additional Health Concerns AssessmentNoted TimePHQ-9 Depression Total Score: 5:03 PM EST documented as of this encounter Care Teams Team MemberRelationshipSpecialtyStart DateEnd Date Mason Johnson MD [address] [place] [address] PCP - GeneralInternal Wmbqlbpw93/11/24 Mason Johnson MD [address] [facility] [address] [place] [address] PCP - Medical [place]07/08/2511documented as of this encounter
--- OUTSIDE RECORDS SUMMARY | 2025-05-07 08:43 | XMS_ITS | Encounter Summary ---
Author Organization [facility] Address [address] [place] [address] Care Team Providers Care Director Of Construction Name Role Phone Unallocated, Noms Provider Primary Care Provi vidhya Mason Johnson MD Primary Care Provider [phone] Mason Johnson MD Unavailable [phone] Encounter Details DateTypeDepartmentCare Team (Latest Contact Info)Xjhqjbbdeab96/17/2024Clinisync Result Encounter [facility] External Department Unsolicited Provider, Generic External Data Social History Tobacco UseTypesPacks/DayYears UsedDateSmoking Tobacco: NeverPassive [...] times a week06/10/2023How often do you attend mandaeism or yazidism services?Never06/10/2023o you belong to any clubs or organizations such as mandaeism groups, unions, fraternal or athletic groups, or school groups?No 06/10/2023How often do you attend meetings of the clubs or organizations you belong to?Never06/10/2023re you , , , , never , or living with a partner?Wtemjqe8906/10/2023UDIT-CAnswerDate RecordedQ1: How often do you have a drink containing alcohol?4 or more times a week 07/29/2023verage Number of DrinksNot on file07/29/2023Frequency of Binge DrinkingNot on file07/29/2023Overall Financial Resource Strain (CARDIA)Answer Date RecordedHow hard is it for you to pay for the very basics like food, housing, medical care, and heating?Very hard06/10/2023HQ-2AnswerDate Recorded Patient Health Questionnaire-2 Jkoee933Finmo[facility] [place] of Occupational Health - Occupational Stress QuestionnaireAnswerDate [...] RecordedSex Assigned at BirthNot on file Legal KvaDynw9609/19/2022 7:58 PM EDTGender IdentityNot on fileSexual Orientation Not on filedocumented as of this encounter Functional Status * Over the past 2 weeks, how often have you been bothered by any of the following problems?QuestionAnswerDate of AssessmentAuthorLittle interest or pleasure in doing thingsNot at all12/28/2024 9:32 AM Niki Cuevas LPN Feeling down, depressed, or hopelessNot at all12/28/2024 9:32 AM Niki Cuevas LPNPatient Health Questionnaire-2 Zcddi173 9:32 AM Niki Cuevas LPN documented as of this encounter Plan of Treatment DateTypeDepartmentCare Team (Latest Contact Info)Undktyuuxwb13/18/2025 9:20 AM ESTOffice Visit [facility] [address] [place] [address] Mayte Stevens, ERP PROJECT MANAGER-DIESEL TRUCK DRIVER [address] [place] [address] 06/16/2025 1:00 PM ESTOffice Visit [facility] [address] [place] [address] Jr. Fam Boyer, DO [address] [place] [address] 07/20/2025 8:30 AM ESTOffice Visit [facility] [place] [facility] [address] [place] [address] Leela Schwartz MD [address] [place] [address] documented as of this encounter Procedures Procedure NamePriorityDate/TimeAssociated DiagnosisCommentsCT CHEST W IV RGQCTJPB55/17/2024 9:58 AM EDT [facility] VIT B12 SERPL-RIXYPdnqobf49/17/2024 8:30 AM EDT [facility] IRON+TIBC PNL NOQSGYmyypxl63/17/2024 8:30 AM EDT [facility] FOLATE SERPL-PMNOUemrdzp49/17/2024 8:30 AM EDT [facility] FERRITIN SERPL-HAKTGxqucbw88/17/2024 8:30 AM EDT documented in this encounter Results * CT chest w IV contrast (04/23/2024 9:58 AM EDT)Anatomical RegionLaterality ModalityBody, ChestComputed TomographySpecimen (Source)Anatomical Location / LateralityCollection Method / VolumeCollection TimeReceived Time04/23/2024 9:58 AM EDT Narrative 04/23/2024 5:52 PM EDT * * *Final Report* * * DATE OF EXAM: Apr 23 2024 ??9:58AM ?? NRC ?? 0539 ??- ??CT CHEST W IVCON ??/ PROCEDURE REASON: multiple diagnoses ? * * * * Physician Interpretation * * * * RESULT: EXAMINATION: ??CHEST CT WITH CONTRAST CLINICAL HISTORY: Base of tongue cancer Technique: ??Spiral CT acquisition of the chest from the thoracic inlet to the upper abdomen following IV contrast. MQ: ??CTCW_6 Contrast: ??100 mL Omnipaque [address] Radiation dose: Integrated Dose-length product (DLP) for this visit = ?? 950 mGy*cm CT Dose Reduction Employed: Automated exposure control (AEC) Comparison: 10/16/23 RESULT: Limitations: ??None. Lines, tubes, and devices: ??None. Lung parenchyma and airways: Mild patchy opacities in the left lung apex (5:32), stable. ??2-3 mm nodular opacity along the right major fissure (5:24), stable. No new airspace opacities. The central airways are patent. Pleural space: ??No pleural effusion. ??No pleural thickening. Lower neck, lymph nodes, and mediastinum: ??The imaged thyroid gland is normal. ??No lymphadenopathy in the supraclavicular, axillary, mediastinal, or hilar regions. Heart, pericardium, and thoracic vessels: ??The thoracic aorta and main pulmonary artery are normal in caliber. The cardiac chambers are normal in size. ??Atherosclerotic coronary artery calcifications are noted. No pericardial effusion or thickening. Bones and soft tissues: ??No suspicious lytic or blastic osseous lesions. Upper abdomen: ??Diffuse hepatic fatty infiltration. ??No evidence of an adrenal mass. Localizer images: No additional findings. IMPRESSION: 1. ??No interval change since 10/16/23. 2. ??Mild patchy opacities in the left lung apex and punctate nodular opacity in the right lung, stable. Transcribe Date/Time: Apr 23 2024 ??5:32P Dictated by: ADAM MONTE MD This examination was interpreted and the report reviewed and electronically signed by: ADAM MONTE MD on Apr 23 2024 ??5:50PM ??EST Thank you for allowing us to participate in the care of your patient. Should there be any questions regarding this interpretation, please call [phone]. If you are unable to reach us at the number above, please feel free to contact [facility] at [phone]. [id number]^AGFA_IDC^SI^ACN Procedure Note Radiology, Radiologist, - 04/23/2024 * * *Final Report* * * DATE OF EXAM: Apr 23 2024 9:58AM [facility] 0539 - CT CHEST W IVCON [...] any questions regarding this interpretation, please call [phone]. If you are unable to reach us at the number above, please feel free to contact [facility] at [phone]. [id number]^AGFA_IDC^SI^ACN Authorizing ProviderResult TypeResult StatusGeneric External Data ProviderIMG CT PROCEDURESFinal Result * [facility] FOLATE SERPL-MCNC (04/23/2024 8:30 AM EDT)ComponentValueRef RangeTest MethodAnalysis TimePerformed AtPathologist SignatureCCF FOLATE SERPL-MCNC12.1 >4.7 ng/mLCCFSpecimen (Source)Anatomical Location / LateralityCollection Method / VolumeCollection TimeReceived Time04/23/2024 8:30 AM EDT1 1:59 PM EDT Narrative CLINISYNC - 04/23/2024 6:26 PM EDT Specimen Type: BLOOD SPECIMEN Ordering Facility: [facility] ?Address: [address] [place] [address] Original Ordering Provider: TAYE ENGLAND Authorizing ProviderResult TypeResult StatusGeneric External Data Provider CLINISYNCFinal ResultPerforming OrganizationAddressty/[facility]/ZIP CodePhone Number [place]DR[place] [address] [place] [address] * [facility] FERRITIN SERPL-MCNC (04/23/2024 8:30 AM EDT)ComponentValueRef RangeTest MethodAnalysis TimePerformed AtPathologist SignatureCCF FERRITIN SERPL-MCNC 158.030.3 - 565.7 ng/mLCCFSpecimen (Source)Anatomical Location / Laterality Collection Method / VolumeCollection TimeReceived Time04/23/2024 8:30 AM EDT 04/23/2024 1:59 PM EDT Narrative CLINISYNC - 04/23/2024 6:26 PM EDT Specimen Type: BLOOD SPECIMEN Ordering Facility: [facility] ?Address: [address] [place] [address] Original Ordering Provider: TAYE ENGLAND Authorizing ProviderResult TypeResult StatusGeneric External Data Provider CLINISYNCFinal ResultPerforming OrganizationAddressty/State/ZIP CodePhone Number TAYNC [place] [address] [place] [address] * [facility] VIT B12 SERPL-MCNC (04/23/2024 8:30 AM EDT)ComponentValueRef RangeTest MethodAnalysis TimePerformed AtPathologist SignatureCCF VIT B12 SERPL-KGGA901 232 - 1,245 pg/mLCCFSpecimen (Source)Anatomical Location / Laterality Collection Method / VolumeCollection TimeReceived Time04/23/2024 8:30 AM EDT 04/23/2024 1:59 PM EDT Narrative CLINISYNC - 04/23/2024 6:26 PM EDT Specimen Type: BLOOD SPECIMEN Ordering Facility: [facility] ?Address: [address] [place] [address] Original Ordering Provider: TAYE ENGLAND Authorizing ProviderResult TypeResult StatusGeneric External Data Provider CLINISYNCFinal ResultPerforming OrganizationAddressty/State/ZIP CodePhone Number TAYNC [facility] [address] [place] [phone] * [facility] IRON+TIBC PNL SERPL (04/23/2024 8:30 AM EDT)ComponentValueRef RangeTest MethodAnalysis TimePerformed AtPathologist SignatureCCF IRON SERPL-QOCH6243 - 186 ug/dLCCFCCF TIBC SERPL-[id number] - 386 ug/dLCCFCCF IRON/TIBC SERPL-SRTO 26.015.0 - 57.0 %CCFSpecimen (Source)Anatomical Location / Laterality Collection Method / VolumeCollection TimeReceived Time04/23/2024 8:30 AM EDT 04/23/2024 1:59 PM EDT [facility]ative [facility] 04/23/2024 6:10 PM EDT Specimen Type: BLOOD SPECIMEN Ordering Facility: [facility] ?Address: [address] [place], [place] [address] Original Ordering Provider: TAYE ENGLAND Authorizing ProviderResult TypeResult StatusGeneric External Data Provider CLINISYNCFinal ResultPerforming OrganizationAddressty/[facility]/ZIP CodePhone Number TAYNC [facility] [address] [address] documented in this encounter Visit Diagnoses Not on filedocumented in this encounter Additional Health Concerns AssessmentNoted TimePHQ-9 Depression Total Score: 5:03 PM EST documented as of this encounter Care Teams Team MemberRelationshipSpecialtyStart DateEnd Date Unallocated, Noms Provider, [place] [address] PCP - GeneralFamily Qxhzadve66/7/ Mason Johnson MD [address] [facility] [address] [place] [address] PCP - GeneralInternal Xxrywfxk40/11/24 Mason Johnson MD [address] [facility] [address] [place] [address] PCP - Medical [place]07/08/2511documented as of this encounter
--- OUTSIDE RECORDS SUMMARY | 2025-05-07 08:43 | XMS_ITS | Encounter Summary ---
Author Organization [facility] Address [address] [place] [address] Care Team Providers Care Plastic Molder Name Role Phone Shaikh YURI Drake Primary Care Provider [phone] Shaikh YURI Drake Primary Care Provider [phone] Unallocated, Noms Provider Primary Care Provi vidhya Mason Johnson MD Primary Care Provider [phone] Mason Johnson MD Unavailable [phone] Encounter Details DateTypeDepartmentCare Team (Latest Contact Info)Duiswnzpyuf26/10/2024Clinisync Result Encounter [facility] External Department Unsolicited Provider, Generic External Data Social History Tobacco UseTypesPacks/DayYears UsedDateSmoking Tobacco: NeverSmokeless Tobacco: NeverAlcohol UseStandard Drinks/WeekCommentsYes7 (1 standard drink = 0.6 oz pure alcohol)caffeine intake: 1-2 cups per dayHumiliation, Afraid, Rape, and Kick questionnaireAnswerDate RecordedWithin the last year, have you been afraid of your partner or ex-partner?No06/10/2023Within the last year, have you been humiliated or emotionally abused in other ways by your partner or ex-partner?No 06/10/2023Within the last year, have you been kicked, hit, slapped, or otherwise physically hurt by your partner or ex-partner?No06/10/2023Within the last year, have you been raped or forced to have any kind of sexual activity by your part ner or ex-partner?No06/10/2023Social Connection and Isolation PanelAnswerDate RecordedIn a typical week, how many times do you talk on the phone with family, friends, or neighbors?Three times a week06/10/2023How often do you get together with friends or relatives?Three times a week06/10/2023How often do you attend christianity or voodoo services?Never06/10/2023o you belong to any clubs or organizations such as christianity groups, unions, fraWistone or athletic groups, or school groups?No06/10/2023How often do you attend meetings of the clubs or organizations you belong to?Never06/10/2023re you , , , , never , or living with a partner?Csmlryn4806/10/2023UDIT-C AnswerDate RecordedQ1: How often do you have a drink containing alcohol?4 or more times a week07/29/2023verage Number of DrinksNot on file07/29/2023 Frequency of Binge DrinkingNot on file07/29/2023Overall Financial Resource Strain (CARDIA)AnswerDate RecordedHow hard is it for you to pay for the very basics like food, housing, medical care, and heating?Very hard06/10/2023HQ-2 AnswerDate RecordedPatient Health Questionnaire-2 Oqdvq909Finutah valley hospital [place] of Occupational Health - Occupational Stress QuestionnaireAnswerDate RecordedDo you feel stress - tense, restless, nervous, or anxious, or unable to sleep at night because yourmind is troubled all the time - these days?Not at all 06/10/2023Exercise Vital SignAnswerDate RecordedOn average, how many days per week do you engage in moderate to strenuous exercise (like a brisk walk)?7 days 06/10/2023On average, how many minutes do you engage in exercise at this level? 30 min06/10/2023Hunger Vital SignAnswerDate RecordedWithin the past 12 months, you worried that your food would run out before you got the money to buymore. Never true06/10/2023Within the past 12 months, the food you bought just didn't last and you didn't have money to get more.Never true06/10/2023RAPARE - TransportationAnswerDate RecordedIn the past 12 months, has lack of transportation kept you from medical appointments or from getting medications?No 06/10/2023In the past 12 months, has lack of transportation kept you from meetings, work, or from getting things needed for daily living?No06/10/2023 Housing Stability Vital SignAnswerDate RecordedIn the last 12 months, was there a time when you were not able to pay the mortgage or rent on time?No06/10/2023 Number of Places Lived in the Last YearNot on file06/10/2023In the last 12 months, was there a time when you did not have a steady place to sleep or slept in ashelter (including now)?No06/10/2023Sex and Gender InformationValueDate RecordedSex Assigned at BirthNot on fileLegal OkjDbwa1709/19/2022 7:58 PM EDT Gender IdentityNot on fileSexual OrientationNot on filedocumented as of this encounter Functional Status * Over the past 2 weeks, how often have you been bothered by any of the following problems?QuestionAnswerDate of AssessmentAuthorLittle interest or pleasure in doing thingsNot at all12/28/2024 9:32 AM Niki Cuevas LPN Feeling down, depressed, or hopelessNot at all12/28/2024 9:32 AM Niki Cuevas LPNPatient Health Questionnaire-2 Bhbht086 9:32 AM Niki Cuevas LPN documented as of this encounter Plan of Treatment DateTypeDepartmentCare Team (Latest Contact Info)Eaxnjwrtiav08/18/2025 9:20 AM ESTOffice Visit [facility] [address] [place] [address] Mayte Stevens APRN-BUSINESS SYSTEMS CONSULTANT [address] [place] [address] 06/16/2025 1:00 PM ESTOffice Visit [facility] [address] [place] [address] Jr. Fam Boyer, [address] [place] [address] 07/20/2025 8:30 AM ESTOffice Visit [facility] [place] [facility] [address] [place] [id number] Leela Schwartz MD [address] [place] [address] documented as of this encounter Procedures Procedure NamePriorityDate/TimeAssociated DiagnosisCommentsCT CHEST W IV CXMVDGNL65/10/2024 12:43 PM EDT documented in this encounter Results * CT chest w IV contrast (10/16/2023 12:43 PM EDT)Anatomical RegionLaterality ModalityBody, ChestComputed TomographySpecimen (Source)Anatomical Location / LateralityCollection Method / VolumeCollection TimeReceived Time10/16/2023 12:43 PM EDT Narrative 10/17/2023 9:10 AM EDT * * *Final Report* * * DATE OF EXAM: Oct 16 2023 12:43PM ?? NR ?? 0539 ??- ??CT CHEST W IVCON ??/ PROCEDURE REASON: multiple diagnoses ? * * * * Physician Interpretation * * * * RESULT: EXAMINATION: ??CHEST CT WITH CONTRAST CLINICAL HISTORY: Lung nodules. 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 Technique: ??Spiral CT acquisition of the chest from the thoracic inlet to the upper abdomen following IV contrast. MQ: ??CTCW_6 Contrast: ??100 mL Omnipaque [address] Radiation dose: Integrated Dose-length product (DLP) for this visit = ?? 975 mGy*cm CT Dose Reduction Employed: Automated exposure control (AEC) Comparison: CT chest performed 06/12/2023 RESULT: Limitations: ??None. Lines, tubes, and devices: ??None. Lung parenchyma and airways: There is mild dependent atelectasis. ??No lobar consolidation is visualized. ??Stable patchy groundglass opacity is noted in the left upper lobe (4:36). ??Previously described right upper lobe nodular opacity is less conspicuous when compared to prior exam. ?? There is a stable 4 mm nodular opacity along the right major fissure (4:105). ??No new or enlarging nodules are seen. ??The central airways are widely patent. Pleural space: ??No pleural effusion. ??No pleural thickening. Lower neck, lymph nodes, and mediastinum: ??The thyroid gland is unremarkable. ??A subcarinal node is seen measuring up to 1.1 cm, similar to prior exam. ??No new bulky intrathoracic adenopathy is seen. Heart, pericardium, and thoracic vessels: ??The thoracic aorta and main pulmonary artery are normal in caliber. The cardiac chambers are normal in size. ??Coronary artery atherosclerotic calcification is noted. No pericardial effusion or thickening. Bones and soft tissues: ??Multilevel degenerative changes seen in the thoracic spine. ??Superficial soft tissues are unremarkable. Upper abdomen: ??No abnormality in the imaged upper abdomen. Localizer images: No additional findings. IMPRESSION: 1. ??Stable appearance of patchy groundglass opacities in the left upper lobe. ??Stable 4 mm nodular opacity along the right major fissure. ??No new or enlarging nodules are seen. 2. ??Stable mildly prominent subcarinal node. ??No new bulky intrathoracic adenopathy. Transcribe Date/Time: Oct 17 2023 ??8:33A Dictated by: CORINA PITTMAN MD This examination was interpreted and the report reviewed and electronically signed by: CORINA PITTMAN MD on Oct 17 2023 ??9:08AM ??EST Thank you for allowing us to participate in the care of your patient. Should there be any questions regarding this interpretation, please call [phone]. If you are unable to reach us at the number above, please feel free to contact [facility] at [phone]. [id number]^AGFA_IDC^SI^ACN Procedure Note Radiology, Radiologist, - 10/17/2023 * * *Final Report* * * DATE OF EXAM: Oct 16 2023 12:43PM [facility] 0539 - CT CHEST W [...] any questions regarding this interpretation, please call [phone]. If you are unable to reach us at the number above, please feel free to contact [facility] eRadiology at [phone]. [id number]^AGFA_IDC^SI^ACN Authorizing ProviderResult TypeResult StatusGeneric External Data ProviderIMG CT PROCEDURESFinal Result documented in this encounter Visit Diagnoses Not on filedocumented in this encounter Additional Health Concerns AssessmentNoted TimePHQ-9 Depression Total Score: 5:03 PM EST documented as of this encounter Care Teams Team MemberRelationshipSpecialtyStart DateEnd Date Shaikh Drake MD PCP - GeneralInternal Medicine Shaikh Drake MD PCP - GeneralInternal [facility]11/04/2409 Unallocated, Tamanna ProviderMD [facility] [place] [address] PCP - GeneralFabrock[facility] Nvtjmxws60/7/ Mason Johnson MD [address] [place] [address] PCP - GeneralInternal Yriaapxh60/11/24 Mason Johnson MD [address] [place] [address] PCP - Medical [facility]07/08/2511documented as of this encounter
--- OUTSIDE RECORDS SUMMARY | 2025-05-07 08:43 | XMS_ITS | Encounter Summary ---
Author Organization [facility] Address [address] [place] [address] Care Team Providers Care Invas Tech Name Role Phone Unallocated, Noms Provider Primary Care Provi vidhya Mason Johnson MD Primary Care Provider [phone] Mason Johnson MD Unavailable [phone] Encounter Details DateTypeDepartmentCare Team (Latest Contact Info)Piqaapfjper78/17/2024Clinisync Result Encounter [facility] External Department Unsolicited Provider, [...] times a week06/10/2023How often do you attend presybeterian or advent services?Never06/10/2023o you belong to any clubs or organizations such as presybeterian groups, unions, fraternal or athletic groups, or school groups?No 06/10/2023How often do you attend meetings of the clubs or organizations you belong to?Never06/10/2023re you , , , , never , or living with a partner?Xofzpvs4106/10/2023UDIT-CAnswerDate RecordedQ1: How often do you have a drink containing alcohol?4 or more times a week 07/29/2023verage Number of DrinksNot on file07/29/2023Frequency of Binge DrinkingNot on file07/29/2023Overall Financial Resource Strain (CARDIA)Answer Date RecordedHow hard is it for you to pay for the very basics like food, housing, medical care, and heating?Very hard06/10/2023HQ-2AnswerDate Recorded Patient Health Questionnaire-2 [id number] medical center [place] of Occupational Health - Occupational Stress QuestionnaireAnswerDate [...] RecordedSex Assigned at BirthNot on file Legal NftNfqk3709/19/2022 7:58 PM EDTGender IdentityNot on fileSexual Orientation Not on filedocumented as of this encounter Functional Status * Over the past 2 weeks, how often have you been bothered by any of the following problems?QuestionAnswerDate of AssessmentAuthorLittle interest or pleasure in doing thingsNot at all12/28/2024 9:32 AM Niki Cuevas LPN Feeling down, depressed, or hopelessNot at all12/28/2024 9:32 AM Niki Cuevas LPNPatient Health Questionnaire-2 Ynqqs701 9:32 AM Niki Cuevas LPN documented as of this encounter Plan of Treatment DateTypeDepartmentCare Team (Latest Contact Info)Svaganbkckr88/18/2025 9:20 AM ESTOffice Visit [facility] [address] [place] [address] Mayte Stevens, SADDLE AND HARNESS MAKER-MINER HELPER [address] [place] [address] 06/16/2025 1:00 PM ESTOffice Visit [facility] [address] [place] [address] Jr. Fam Boyer, DO [address] [place] [address] 07/20/2025 8:30 AM ESTOffice Visit [facility] [place] [facility] [address] [place] [address] Leela Schwartz MD [address] [place] [address] documented as of this encounter Procedures Procedure NamePriorityDate/TimeAssociated DiagnosisCommentsCT NECK SOFT TISSUE W IVCON04/23/2024 9:58 AM EDT documented in this encounter Results * CT NECK SOFT TISSUE W IVCON (04/23/2024 9:58 AM EDT)Anatomical Region LateralityModalityOtherSpecimen (Source)Anatomical Location / Laterality Collection Method / VolumeCollection TimeReceived Time04/23/2024 9:58 AM EDT Narrative 04/23/2024 10:50 AM EDT * * *Final Report* * * DATE OF EXAM: Apr 23 2024 ??9:58AM ?? NRC ?? 0013 ??- ??CT NECK SOFT TISSUE W IVCON ??/ PROCEDURE REASON: multiple diagnoses ? 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 TECHNIQUE: Routine CT neck with contrast, for which 100 cc of Omnipaque 300 50 were injected intravenously. ? CT Dose-Length Product (DLP): 950 mGy*cm. ? CT Dose Reduction Employed:Yes. ? Radiation Shielding Employed: N/A. COMPARISON: CT neck 10/16/2023, and outside hospital CT neck 07/27/2022 (demonstrating bulky hyperdense mass at base of tongue, left more than right, extending to hypopharynx). RESULT: Inferior views of the brain are unremarkable. ??The globes and orbits remain normal. ??The paranasal sinuses, mastoid air cells and middle ear chambers all remain clear. ??The nasal cavity and nasopharynx remains normal. The oral cavity again shows asymmetry of the tongue base, with volume loss on the left, and is unchanged. The hypopharynx and supraglottic regions remain unremarkable. ??The glottis and paraglottic tissues remain normal. ??The major salivary glands remain symmetric and unremarkable. ??The thyroid gland remains within normal limits accounting for technique the major cervical vessels maintain normal course and caliber. ??Views of the superior lung krishna remain unremarkable. ??There is no suspicious osseous lesion. 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 Color Specialist (topogram) images: No additional findings. IMPRESSION: 1. ??STABLE POSTTREATMENT CHANGES AT LEFT BASE OF TONGUE 2. ??NO NEW SUSPICIOUS SOFT TISSUE, EDEMA, ENHANCEMENT OR MASS EFFECT TO SUGGEST RECURRENCE 3. ??NO LYMPHADENOPATHY Transcribe Date/Time: Apr 23 2024 10:30A Dictated by: GRETCHEN WANG MD This examination was interpreted and the report reviewed and electronically signed by: GRETCHEN WANG MD on Apr 23 2024 10:48AM ??EST Thank you for allowing us to participate in the care of your patient. Should there be any questions regarding this interpretation, please call [phone]. If you are unable to reach us at the number above, please feel free to contact [facility] at [phone]. 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 Color Specialist (topogram) images: No additional findings. IMPRESSION: 1. [...] any questions regarding this interpretation, please call [phone]. If you are unable to reach us at the number above, please feel free to contact [facility] eRadiology at [phone]. [id number]^AGFA_IDC^SI^ACN Authorizing ProviderResult TypeResult StatusGeneric External Data Provider CLINISYNC IMAGINGFinal Result documented in this encounter Visit Diagnoses Not on filedocumented in this encounter Additional Health Concerns AssessmentNoted TimePHQ-9 Depression Total Score: 5:03 PM EST documented as of this encounter Care Teams Team MemberRelationshipSpecialtyStart DateEnd Date Unallocated, Noms MD [address] [place] [address] PCP - GeneralFamily Ooaptnzs88/7/ Mason Johnson MD [address] [facility] [address] [place] [address] PCP - GeneralWicken[facility] Hospitalnal Qcamyjfh27/11/24 Mason Johnson MD [address] [facility] [address] [place] [address] PCP - Medical [facility]07/08/2511documented as of this encounter
--- OUTSIDE RECORDS SUMMARY | 2025-05-07 08:43 | XMS_ITS | Encounter Summary ---
Author Organization [facility] Address [address] [place] [address] Care Team Providers Care Liquefaction And Regasification Helper Name Role Phone Mason Johnson MD Primary Care Provider [phone] Mason Johnson MD Unavailable [phone] Encounter Details DateTypeDepartmentCare Team (Latest Contact Info)Nfunsnehdoj19/22/2025Travel Social History Tobacco UseTypesPacks/DayYears UsedDateSmoking Tobacco: NeverPassive [...] times a week06/10/2023How often do you attend yarsanism or samaritan services?Never06/10/2023o you belong to any clubs or organizations such as yarsanism groups, unions, fraternal or athletic groups, or school groups?No 06/10/2023How often do you attend meetings of the clubs or organizations you belong to?Never06/10/2023re you , , , , never , or living with a partner?Bdprwrp6706/10/2023UDIT-CAnswerDate RecordedQ1: How often do you have a drink containing alcohol?4 or more times a week 07/29/2023verage Number of DrinksNot on file07/29/2023Frequency of Binge DrinkingNot on file07/29/2023Overall Financial Resource Strain (CARDIA)Answer Date RecordedHow hard is it for you to pay for the very basics like food, housing, medical care, and heating?Very hard06/10/2023HQ-2AnswerDate Recorded Patient Health Questionnaire-2 Tpspb709Finheber [facility] medical [facility] [place] of Occupational Health - Occupational Stress QuestionnaireAnswerDate [...] RecordedSex Assigned at BirthNot on file Legal QcbCuah7709/19/2022 7:58 PM EDTGender IdentityNot on fileSexual Orientation Not on filedocumented as of this encounter Plan of Treatment DateTypeDepartmentCare Team (Latest Contact Info)Kdzdlyszimx38/18/2025 9:20 AM ESTOffice Visit [facility] [place] [facility] [address] [place] [address] Mayte Stevens, MULTIMEDIA PRODUCTION ASSISTANT-MEDICAL ASSISTING INSTRUCTOR [address] [place], [place] [address] 06/16/2025 1:00 PM ESTOffice Visit [facility] [place] [facility] [address] [place] [address] Jr. Fam Boyer DO [address] [place] [address] 07/20/2025 8:30 AM ESTOffice Visit [facility] [place] [facility] [address] [place] [address] Leela Schwartz MD [address] [place] [address] documented as of this encounter Visit Diagnoses Not on filedocumented in this encounter Additional Health Concerns AssessmentNoted TimePHQ-9 Depression Total Score: 5:03 PM EST documented as of this encounter Care Teams Team MemberRelationshipSpecialtyStart DateEnd Date Mason Johnson MD [address] [facility] [address] [place] [address] PCP - GeneralInternal Vllmgrvn12/11/24 Mason Johnson MD [address] [facility] [address] [place] [address] PCP - Medical [place]07/08/2511documented as of this encounter
--- OUTSIDE RECORDS SUMMARY | 2025-05-07 08:43 | XMS_ITS | Encounter Summary ---
Author Organization [facility] Address [address] [place] [address] Care Team Providers Care District Medical Examiner Name Role Phone Mason Johnson MD Primary Care Provider [phone] Mason Johnson MD Unavailable [phone] Encounter Details DateTypeDepartmentCare Team (Latest Contact Info)Utqmeqnitnp63/22/2025amboo flowsheet [facility] [place] [facility] [address] [place] [address] Jr. Fam Boyer, DO [address] [place] [address] Social History Tobacco UseTypesPacks/DayYears UsedDateSmoking Tobacco: NeverPassive [...] week06/10/2023How often do you attend hoahaoism or shinto services?Never06/10/2023o you belong to any clubs or organizations such as hoahaoism groups, unions, fraternal or athletic groups, or school groups?No 06/10/2023How often do you attend meetings of the clubs or organizations you belong to?Never06/10/2023re you , , , , never , or living with a partner?Rcadhuu2206/10/2023UDIT-CAnswerDate RecordedQ1: How often do you have a drink containing alcohol?4 or more times a week 07/29/2023verage Number of DrinksNot on file07/29/2023Frequency of Binge DrinkingNot on file07/29/2023Overall Financial Resource Strain (CARDIA)Answer Date RecordedHow hard is it for you to pay for the very basics like food, housing, medical care, and heating?Very hard06/10/2023HQ-2AnswerDate Recorded Patient Health Questionnaire-2 Xsyvq361Finlayton hospital [place] of Occupational Health - Occupational Stress QuestionnaireAnswerDate [...] RecordedSex Assigned at BirthNot on file Legal YtmCoyo2409/19/2022 7:58 PM EDTGender IdentityNot on fileSexual Orientation Not on filedocumented as of this encounter Plan of Treatment DateTypeDepartmentCare Team (Latest Contact Info)Yoylcicqgjh31/18/2025 9:20 AM ESTOffice Visit [facility] [place] [facility] [address] [place] [address] Mayte Stevens, ADMINISTRATIVE RESOURCES ASSOCIATE-TRANSLATOR INTERPRETER [address] [place] [address] 06/16/2025 1:00 PM ESTOffice Visit [facility] [place] [facility] [address] [place] [address] Jr. Fam Boyer DO [address] [place] [address] 07/20/2025 8:30 AM ESTOffice Visit [facility] [place] [facility] [address] [place] [address] Leela Schwartz MD [address] [place], [place] [address] documented as of this encounter Visit Diagnoses Not on filedocumented in this encounter Additional Health Concerns AssessmentNoted TimePHQ-9 Depression Total Score: 5:03 PM EST documented as of this encounter Care Teams Team MemberRelationshipSpecialtyStart DateEnd Date Mason Johnson MD [address] [facility] [address] [place] [address] PCP - GeneralInternal Ycmgkxsb55/11/24 Mason Johnson MD [address] [facility] [address] [place], [place] [address] PCP - Medical [place]07/08/2511documented as of this encounter
--- OUTSIDE RECORDS SUMMARY | 2025-05-07 08:43 | XMS_ITS | Encounter Summary ---
Author Organization [facility] Address [address] [place] [address] Care Team Providers Care Film Reproducer Name Role Phone Mason Johnson MD Primary Care Provider [phone] Mason Johnson MD Unavailable [phone] Reason for Visit * ReasonOnset DateCommentsLab Work04/29/2025 Encounter Details DateTypeDepartmentCare Team (Latest Contact Info)Stftllvstue36/23/2025Telephone [facility] [address] [place] [address] Jr. Fam Boyer, DO [address] [address] Lab Work Social History Tobacco UseTypesPacks/DayYears UsedDateSmoking [...] times a week06/10/2023How often do you attend mormon or cheondoism services?Never06/10/2023o you belong to any clubs or organizations such as mormon groups, unions, fraternal or athletic groups, or school groups?No 06/10/2023How often do you attend meetings of the clubs or organizations you belong to?Never06/10/2023re you , , , , never , or living with a partner?Fqqteeq0806/10/2023UDIT-CAnswerDate RecordedQ1: How often do you have a drink containing alcohol?4 or more times a week 4Average Number of DrinksNot on file07/29/2023Frequency of Binge DrinkingNot on file07/29/2023Overall Financial Resource Strain (CARDIA)Answer Date RecordedHow hard is it for you to pay for the very basics like food, housing, medical care, and heating?Very hard06/10/2023HQ-2AnswerDate Recorded Patient Health Questionnaire-2 Llizk713[facility] [place] of Occupational Health - Occupational Stress QuestionnaireAnswerDate [...] RecordedSex Assigned at BirthNot on file Legal XjbEajl0009/19/2022 7:58 PM EDTGender IdentityNot on fileSexual Orientation [...] Plan of Treatment DateTypeDepartmentCare Team (Latest Contact Info)Sjivcuqsvrv69/18/2025 9:20 AM ESTOffice Visit [facility] [place] [facility] [address] [place] [address] Mayte Stevens, FILING MACHINE OPERATOR-STAVE AND BOLT EQUALIZER [address] [place], [place] [address] 06/16/2025 1:00 PM ESTOffice Visit [facility] [place] [facility] [address] [place] [phone] Jr. Fam Boyer DO [address] [place] [address] 07/20/2025 8:30 AM ESTOffice Visit [facility] [place] [facility] [address] [place] [address] Leela Schwartz MD [address] [place] [address] documented as of this encounter Visit Diagnoses Not on filedocumented in this encounter Additional Health Concerns AssessmentNoted TimePHQ-9 Depression Total Score: 5:03 PM EST documented as of this encounter Care Teams Team MemberRelationshipSpecialtyStart DateEnd Mason Johnson MD [address] [place] [address] PCP - GeneralInternal Ggivaonk83/11/24 Mason Johnson MD [address] [place] [address] PCP - Medical [place]/documented as of this encounter
--- OUTSIDE RECORDS SUMMARY | 2025-05-07 08:43 | XMS_ITS ---
Author Organization [facility] Address [facility] [id number] Care Team Providers Care Stucco Applicator Name Role Phone Juliet Tiradomart EVERETT Unavailable [phone] John Valladares MD Unavailable [phone] Natalie Cadena APRN.FINANCE LECTURER Unavailable [phone] Yordan Randolph MD Unavailable [phone] Marysol Purvis BIT BENDER Unavailable Unavailable Alex OLIVAS MD, Mason Regan Primary Care Provider [phone] Active Problems ProblemNoted DateDiagnosed DateDisorder of carbohydrate cvryhnfdio69/07/2023 Stage 3 chronic kidney disease, unspecified whether stage 3a or 3b CKD2022 Cancer of the base of rjxjid7708/21/2022olon vwjgvz6611/19/2012 Current Treatment and Therapy Plans No current [...]
--- OUTSIDE RECORDS SUMMARY | 2025-05-07 08:43 | XMS_ITS | Encounter Summary ---
Author Organization [facility] Address [address] [place] [address] Care Team Providers Care Brokerage Purchase And Sale Clerk Name Role Phone Shaikh YURI Drake Primary Care Provider [phone] Shaikh YURI Drake Primary Care Provider [phone] Unallocated, [facility] Provider Primary Care Provi vidhya Mason Johnson MD Primary Care Provider [phone] Mason Johnson MD Unavailable [phone] Encounter Details DateTypeDepartmentCare Team (Latest Contact Info)Sdgapaobcij84/10/2024Clinisync Result Encounter [facility] External Department Unsolicited Provider, [...] times a week06/10/2023How often do you attend voodoo or anglican services?Never06/10/2023o you belong to any clubs or organizations such as voodoo groups, unions, fraDifferential or athletic groups, or school groups?No06/10/2023How often do you attend meetings of the clubs or organizations you belong to?Never06/10/2023re you , , , , never , or living with a partner?Bxjdoco1906/10/2023UDIT-C AnswerDate RecordedQ1: How often do you have a drink containing alcohol?4 or more times a week07/29/2023verage Number of DrinksNot on file07/29/2023 Frequency of Binge DrinkingNot on file07/29/2023Overall Financial Resource Strain (CARDIA)AnswerDate RecordedHow hard is it for you to pay for the very basics like food, housing, medical care, and heating?Very hard06/10/2023HQ-2 AnswerDate RecordedPatient Health Questionnaire-2 Jyhdw973Finsteward health care system [place] of Occupational Health - Occupational Stress QuestionnaireAnswerDate [...] InformationValueDate RecordedSex Assigned at BirthNot on fileLegal GzcIkfh9809/19/2022 7:58 PM EDT Gender IdentityNot on fileSexual OrientationNot on filedocumented as of this encounter Functional Status * Over the past 2 weeks, how often have you been bothered by any of the following problems?QuestionAnswerDate of AssessmentAuthorLittle interest or pleasure in doing thingsNot at all12/28/2024 9:32 AM Niki Cuevas LPN Feeling down, depressed, or hopelessNot at all12/28/2024 9:32 AM Niki Cuevas LPNPatient Health Questionnaire-2 Mnvbr206 9:32 AM Niki Cuevas LPN documented as of this encounter Plan of Treatment DateTypeDepartmentCare Team (Latest Contact Info)Bgsdofneqfl50/18/2025 9:20 AM ESTOffice Visit [facility] [address] [place] [phone] Mayte Stevens APRN-SHAKER FLATWORK [address] [place] [address] 06/16/2025 1:00 PM ESTOffice Visit [facility] [address] [place] [address] Jr. Fam Boyer, [address] [place] [address] 07/20/2025 8:30 AM ESTOffice Visit [facility] [place] [facility] [address] [place] [phone] Leela Schwartz MD [address] [place] [address] documented as of this encounter Procedures Procedure NamePriorityDate/TimeAssociated DiagnosisCommentsCT NECK SOFT TISSUE W IVCON10/16/2023 12:43 PM EDT documented in this encounter Results * CT NECK SOFT TISSUE W IVCON (10/16/2023 12:43 PM EDT)Anatomical Region LateralityModalityOtherSpecimen (Source)Anatomical Location / Laterality Collection Method / VolumeCollection TimeReceived Time10/16/2023 12:43 PM EDT Narrative 10/16/2023 1:32 PM EDT * * *Final Report* * * DATE OF EXAM: Oct 16 2023 12:43PM ?? NRC ?? 0013 ??- ??CT NECK SOFT TISSUE W IVCON ??/ PROCEDURE REASON: Cancer of the base of tongue (HCC) ? * * * * Physician Interpretation * * * * RESULT: CT NECK SOFT TISSUE W IVCON HISTORY: ??Cancer of the base of tongue (HCC) TECHNIQUE: CT neck soft tissues following IV administration of [address] Dose-Length Product (DLP): ??975 mGy*cm CT Dose Reduction Employed: ??Automated exposure control (AEC) COMPARISON: ??PET/CT 01/29/2023, outside hospital CT neck 07/27/2022 RESULT: Post-treatment changes: ??Asymmetric prominence of the LEFT vallecula and LEFT inferior glossotonsillar sulcus along LEFT base of tongue at site of previously noted enhancing lesion on prior CT neck 07/27/2022. ??No residual enhancing soft tissue in this region or elsewhere to suggest residual/recurrent disease. ??Extensive posttreatment/postradiation changes including oropharyngeal/hypopharyngeal mucosal edema, bilateral submandibular gland heterogeneity and atrophy, platysmal muscle thickening, and minimal parapharyngeal fat stranding. Lymph nodes: ??No cervical lymphadenopathy by size, number or morphologic criteria. ??Small nonspecific lymph nodes are scattered throughout the neck. Aerodigestive tract: ??The oral cavity is partially obscured by artifact from dental amalgam. ??The nasal cavities, naso-oropharynx, pharyngeal mucosal space, laryngeal structures and infraglottic trachea are otherwise within normal limits. Major salivary glands: ??Hyperattenuation of atrophy of the bilateral submandibular glands as detailed above. ??Bilateral parotid glands appear remarkable. Thyroid gland: ??Within normal limits. Carotid space: ??Atherosclerotic changes to the bilateral carotid bifurcations and proximal cervical ICAs resulting in mild short segment narrowing, although the study is not optimized for carotid artery assessment. ??Bilateral jugular veins appear patent. Intracranial contents: ??Mild generalized volume loss with commensurate ventriculomegaly. ??No visualized mass effect or abnormal enhancement. Paranasal sinuses, middle ears, mastoids: ??Clear. Orbits: ??Bilateral pseudophakia. ??Otherwise, within normal limits. Bones: ??No suspicious osseous lesions in the imaged calvarium, skull base and spine. ??Straightening of the normal cervical lordosis. 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 ?? Multilevel uncovertebral hypertrophy and facet arthropathy resulting in up to moderate to severe neuroforaminal narrowing at C3-C7. ?? Temporomandibular joints are maintained. Lungs: ??Imaged lungs are clear of consolidation or mass. ??Please see concurrent CT chest for complete evaluation of the intrathoracic contents. IMPRESSION: Primary: NI-RADS 1. Expected post-treatment changes in the neck without evidence of recurrent disease in the primary site. ? Neck: NI-RADS 1. No evidence of abnormal lymph nodes. Transcribe Date/Time: Oct 16 2023 ??1:19P Dictated by: SHIV MANZANO MD This examination was interpreted and the report reviewed and electronically signed by: SHIV MANZANO MD on Oct 16 2023 ??1:29PM ??EST Thank you for allowing us to participate in the care of your patient. Should there be any questions regarding this interpretation, please call [phone]. If you are unable to reach us at the number above, please feel free to contact [facility] at [phone]. [id number]^AGFA_IDC^SI^ACN Procedure Note Radiology, Radiologist, - 10/16/2023 * [...] any questions regarding this interpretation, please call [phone]. If you are unable to reach us at the number above, please feel free to contact [facility] at [phone]. [id number]^AGFA_IDC^SI^ACN Authorizing ProviderResult TypeResult StatusGeneric External Data Provider CLINISYNC IMAGINGFinal Result documented in this encounter Visit Diagnoses Not on filedocumented in this encounter Additional Health Concerns AssessmentNoted TimePHQ-9 Depression Total Score: 5:03 PM EST documented as of this encounter Care Teams Team MemberRelationshipSpecialtyStart DateEnd Date Shaikh Drake MD PCP - GeneralInternal Medicine01/21// Shaikh Drake MD PCP - GeneralInternal Medicine11/04/2409 Unallocated, [facility], [address] [place] [address] [facility] Tstjdozf57/7/ Mason Johnson MD [address] [place] [address] PCP - GeneralInternal Tvlwcbmu71/11/24 Mason Johnson MD [address] [place] [address] PCP - Medical [place]07/08/2511documented as of this encounter
--- OUTSIDE RECORDS SUMMARY | 2025-05-07 08:43 | XMS_ITS | Patient Health Record ---
Author Organization [facility] Address [address] [place] [address] Care Team Providers Care Chancellor Name Role Phone SHAIKH ASHBY Primary Care Provider Unavailabl e Reason For Referral No Information Problems Problem Type SNOMED Code ICD Code Onset Dates Problem Status W/U Status Risk Notes Problem [id number] Separation of ri ght acromioclavicular joint, initial encounter (S43.101A) [id number] dislocation of right acromioclavicular joint, initial encounter (S43.101A)Activeconfirmed Plan Of Treatment No Information Insurance Providers Payer Name Payer Address Payer Phone Subscriber Number Group Number Insured Name Patient Relationship to Insured Coverage Start Date Coverage End Date [employer] Medicare [address] [address] [place] [address] [id number] Sj RIVERA - patient is the insuredt[facility] Medicare SupplementPO [address] [address] [place] [id number], VERNONSelf - patient is the insured Medical (General) History Medical History History ICD Code Cancer Heart AttackDiabetesHigh Blood Pressure
--- OUTSIDE RECORDS SUMMARY | 2025-05-07 08:44 | XMS_ITS | Encounter Summary ---
Author Organization [facility] Address [address] [place] [address] Care Team Providers Care Medical Case Manager Name Role Phone Juliet Tiradomart EVERETT Unavailable [phone] John Valladares MD Unavailable [phone] Natalie Cadena APRN.GRAVE CLEANER Unavailable [phone] Yordan Randolph MD Unavailable [phone] Marysol Purvis FINISHING WIRE SAWYER Unavailable Unavailable Alex OLIVAS MD, Mason Regan Primary Care Provider [phone] Source Comments In the event this information is protected by the Federal Confidentiality of Alcohol and Drug AbusePatient Records regulations: The Federal rules restrict any use of the information to criminally investigate or prosecute any alcohol or drug abuse patient.[facility] Encounter Details DateTypeDepartmentCare Team (Latest Contact Info)Nzugxlkgaop15/30/2025Travel Social History Tobacco UseTypesPacks/DayYears UsedDateSmoking Tobacco: NeverPassive Smoke Exposure: NeverSmokeless Tobacco: NeverAlcohol UseStandard Drinks/WeekComments Yes0 (1 standard drink = 0.6 oz pure alcohol)daily 3 beersPHQ-2AnswerDate RecordedPHQ-2 zpoyl648rea Deprivation IndexAnswerDate RecordedNational Score (1-100), lower number is lower umqx509711/07/2022State Score (1-10), lower number is lower lfwt270/03/2023Data from: https://www.neighborhoodatlas.[facility]/. Last address used for [address] [place] [address]/07/2022Sex and Gender InformationValueDate Recorded Sex Assigned at BirthNot on fileLegal PmqXluj37/02/2012 10:15 AM ESTGender IdentityNot on fileSexual OrientationNot on filedocumented as of this encounter Functional Status * Are you deaf or do you have serious difficulty hearing?AnswerDate of XmkmsmavmvOzhrngZr47/23/2014 11:20 AM Jasmyn Anthony * Are you blind or do you have serious difficulty seeing, even when wearing glasses?AnswerDate of WcwmmaypbuKdsnntVe43/23/2014 11:20 AM Jasmyn Anthony * Do you have serious difficulty walking or climbing stairs?AnswerDate of PhcrorwhwuOpshnqLp83/23/2014 11:20 AM Jasmyn Anthony * Do you have difficulty dressing or bathing?AnswerDate of AssessmentAuthorNo 04/29/2014 11:20 AM Jasmyn Anthony * Because of a physical, mental, or emotional condition, do you have difficulty doing errands alone such as visiting a doctor's office or shopping?AnswerDate of PbbmucjfweCzhofhOr31/23/2014 11:20 AM Jasmyn Anthony documented as of this encounter Mental Status * Because of a physical, mental, or emotional condition, do you have serious difficulty concentrating, remembering, or making decisions?AnswerEntry Date TiklayHd53/23/2014 11:20 AM Jasmyn Anthony documented in this encounter Plan of Treatment DateTypeDepartmentCare Team (Latest Contact Info)Clkmtcpkpgd75/22/2026 8:15 AM EDTAppointment Radiology Pet CT [address] [place] [address] CT Chest and neck with oikeotla82/29/2026 10:00 AM EDTOffice Visit Radiation Oncology [address] [place] [address] Yordan Randolph MD [address] [place] [address] 1 year follow up05/05/2026 10:40 AM EDTVisit (SP) Office Hematology/Oncology [address] [place] [address] John Valladares MD [address] [place] [address] 1 year follow up for lab and ct scan resultsdocumented as of this encounter Visit Diagnoses Not on filedocumented in this encounter Care Teams Team MemberRelationshipSpecialtyStart DateEnd Date Mason Johnson II, MD [address] [place] [address] PCP - GeneralInternal Kaebjopt66/30/[address] [place] [address] Registered DietitianNutrition08/20/22 John Valladares MD [address] [place] [address] [place] [address] PhysicianHematology/Oncology08/21/22 Natalie Cadena APRN.GRAVE CLEANER [address] [facility] [place] [address] Nurse PractitionerHematology/Oncology08/21/22 Yordan Randolph MD [address] [place] [address] [place] [address] PhysicianRadiation Oncology08/21/22 Marysol Purvis LSW Social Worker09/07/22documented as of this encounter
--- OUTSIDE RECORDS SUMMARY | 2025-05-07 08:44 | XMS_ITS | Encounter Summary ---
Author Organization [facility] Address [address] [place] [address] Care Team Providers Care Parts Sales Manager Name Role Phone Mason Johnson MD Primary Care Provider [phone] Mason Johnson MD Unavailable Encounter Details DateTypeDepartmentCare Team (Latest Contact Info)Ghoqqcxcxwg42/23/2025External Result Encounter [facility] External Department Unsolicited Jr. Fam Boyer, DO [address] [facility] [address] [place] [address] Social History Tobacco UseTypesPacks/DayYears UsedDateSmoking Tobacco: NeverPassive [...] week06/10/2023How often do you attend hoahaoism or pentecostal services?Never06/10/2023o you belong to any clubs or organizations such as hoahaoism groups, unions, fraternal or athletic groups, or school groups?No 06/10/2023How often do you attend meetings of the clubs or organizations you belong to?Never06/10/2023re you , , , , never , or living with a partner?Meodzcw9406/10/2023UDIT-CAnswerDate RecordedQ1: How often do you have a drink containing alcohol?4 or more times a week 07/29/2023verage Number of DrinksNot on file07/29/2023Frequency of Binge DrinkingNot on file07/29/2023Overall Financial Resource Strain (CARDIA)Answer Date RecordedHow hard is it for you to pay for the very basics like food, housing, medical care, and heating?Very hard06/10/2023HQ-2AnswerDate Recorded Patient Health Questionnaire-2 Bpsmo005Finamerican fork hospital [place] of Occupational Health - Occupational Stress QuestionnaireAnswerDate [...] you didn't have money to get more.Never true12/04/2023PRAPARE - TransportationAnswerDate RecordedIn the past 12 months, [...] RecordedSex Assigned at BirthNot on file Legal MuxMqsw0409/19/2022 7:58 PM EDTGender IdentityNot on fileSexual Orientation Not on filedocumented as of this encounter Plan of Treatment DateTypeDepartmentCare Team (Latest Contact Info)Selhjqyuizs54/18/2025 9:20 AM ESTOffice Visit [facility] [place] [facility] [address] [place] [address] Mayte Stevens, ACQUISITION PROFESSIONAL-BILL POSTER INSTALLER [address] [place] [address] 06/16/2025 1:00 PM ESTOffice Visit [facility] [place] [facility] [address] [place] [address] Jr. Fam Boyer DO [address] [place] [address] 07/20/2025 8:30 AM ESTOffice Visit [facility] [place] [facility] [address] [place] [address] Leela Schwartz MD [address] [place] [address] documented as of this encounter Procedures Procedure NamePriorityDate/TimeAssociated DiagnosisCommentsCULTURE, URINE, IWGMOCDDykuxvp50/23/2025 12:06 PM EDT documented in this encounter Results * Urine culture (04/29/2025 12:06 PM EDT)ComponentValueRef RangeTest Method Analysis TimePerformed AtPathologist SignatureFR NOTENo Growth 2 Days 05/02/2025 10:12 AM [facility] CtrSpecimen (Source) Anatomical Location / LateralityCollection Method / VolumeCollection Time Received TimeUrineUrine specimen obtained by clean catch procedure / Unknown 04/29/2025 12:06 PM EDT1 12:40 PM EDTComment:Clean-Voided Midstream Narrative Authorizing ProviderResult TypeResult StatusJr. Fam ZIEGLER MICROBIOLOGY - GENERAL ORDERABLESFinal ResultPerforming OrganizationAddress City/State/ZIP CodePhone Number [facility] [address] [place] [address], [facility] [address] [place] [address] documented in this encounter Visit Diagnoses Not on filedocumented in this encounter Additional Health Concerns AssessmentNoted TimePHQ-9 Depression Total Score: 5:03 PM EST documented as of this encounter Care Teams Team MemberRelationshipSpecialtyStart DateEnd Mason Johnson MD [address] [facility] [address] [place] [address] PCP - GeneralInternal Kupjwjyh77/11/24 Mason Johnson MD [address] [place] [address] PCP - Medical [place]07/08/2511documented as of this encounter
--- OUTSIDE RECORDS SUMMARY | 2025-05-07 08:44 | XMS_ITS | Encounter Summary ---
Author Organization [facility] Address [address] [place] [address] Care Team Providers Care Sales Representative Business Courses Name Role Phone Mason Johnson MD Primary Care Provider [phone] Mason Johnson MD Unavailable [phone] Encounter Details DateTypeDepartmentCare Team (Latest Contact Info)Msowgodmqcv99/23/2025Clinisync Result Encounter [facility] External Department Unsolicited Provider, [...] week06/10/2023How often do you attend jainism or rastafari services?Never06/10/2023o you belong to any clubs or organizations such as jainism groups, unions, fraternal or athletic groups, or school groups?No 06/10/2023How often do you attend meetings of the clubs or organizations you belong to?Never06/10/2023re you , , , , never , or living with a partner?Jbnlulj8006/10/2023UDIT-CAnswerDate RecordedQ1: How often do you have a drink containing alcohol?4 or more times a week 07/29/2023verage Number of DrinksNot on file07/29/2023Frequency of Binge DrinkingNot on file07/29/2023Overall Financial Resource Strain (CARDIA)Answer Date RecordedHow hard is it for you to pay for the very basics like food, housing, medical care, and heating?Very hard06/10/2023HQ-2AnswerDate Recorded Patient Health Questionnaire-2 Rcbgj899[facility] [place] of Occupational Health - Occupational Stress QuestionnaireAnswerDate [...] RecordedSex Assigned at BirthNot on file Legal BldDxyu5809/19/2022 7:58 PM EDTGender IdentityNot on fileSexual Orientation Not on filedocumented as of this encounter Plan of Treatment DateTypeDepartmentCare Team (Latest Contact Info)Pkilyihjkwv18/18/2025 9:20 AM ESTOffice Visit [facility] [place] [facility] [address] [place] [address] Mayte Stevens, REQUISITION APPROVER-DIRECTOR OF CORPORATE MARKETING [address] [place], [place] [address] 06/16/2025 1:00 PM ESTOffice Visit [facility] [place] [address] [place] [phone] Jr. Fam Gupta DO [address] [place] [address] 07/20/2025 8:30 AM ESTOffice Visit [facility] [place] [facility] [address] [place] [phone] Leela Schwartz MD [address] [place] [address] documented as of this encounter Procedures Procedure NamePriorityDate/TimeAssociated DiagnosisCommentsXR HIP 1 VW LEFT 04/29/2025 6:23 PM EDT documented in this encounter Results * XR hip left 1 view (04/29/2025 6:23 PM EDT)Anatomical RegionLateralityModality Lower Extremities, HipLeftRadiographic ImagingSpecimen (Source)Anatomical Location / LateralityCollection Method / VolumeCollection TimeReceived Time 04/29/2025 6:23 PM EDT Narrative 04/29/2025 6:25 PM EDT [facility] ?[address] ? [place] [address] ?XRay Report ? Signed ? Patient: ANN ROOT D ?MR#: [id number] ?? : 1945 ?Acct:[id number] ?? Age/Sex: 79 / M ?ADM Date: 04/29/25 ?? Loc: LAB ? Attending Dr: Fam Gupta D.O. ? Ordering Physician: Fam Gupta D.O. ?? Date of Service: 04/29/25 ?? Procedure(s): XR hip LT 1V w/ pelvis ?? Accession Number(s): [id number] ? cc: MASON JOHNSON ; Fam Gupta D.O. ? [facility] ? [address] [facility] ? [place] [address] ? Patient Name: ?? ANN ROOT ? MRN: [facility]:[id number] ? date: 1945 ?Sex: M ?? Assigned Patient Location: LAB ?? Current Patient Location: LAB ?? Accession/Order Number: [id number] ?? Exam Date: 04/29/2025 ??12:41 ?Report Date: 04/29/2025 ??18:23 ? At the request of: ?? FAM ??ALONSO ??DO ? Procedure: ??XR hip LT 1V w/ pelvis ? Single view pelvis and single view left hip ? INDICATION: Primary osteoarthritis the left hip ? COMPARISON: MRI left hip 03/12/2025 ? FINDINGS: Moderate degenerative changes right hip and moderate to severe ?? degenerative changes left hip with joint space narrowing, osteophytosis and ?? subchondral cyst formation. ??Enthesopathy involving the trochanteric region ?? noted. ??Degenerative changes both sacral joints. ??No diastases noted. ? XR/XR hip LT 1V w/ pelvis ?? IMPRESSION: Moderate severe degenerative changes left hip. ??Negative acute ?? osseous abnormalities. ? Impression dictated by: Hernandez Rosales M.D. ??04/29/2025 6:23 PM ? Dictation Location: RADIO-PC-29 ? Electronically authenticated by: [id number] ??Y ?? Date: 04/29/2025 ??18:23 ? Dictated By: ?Hernandez Rosales M.D. ? Signed By: ?04/29/255 ? DD/ 22 ? TD/TT: ? Archeologist: Procedure Note Radiology, Radiologist, MD - 04/30/2025 [place] [address] XRay Report Signed Patient: ANN ROOT DMR#: [id number] : 1945cct:[id number] Age/Sex: 79 / MADM Date: 04/29/25 Loc: LAB Attending Dr: Fam Gupta D.O. Ordering Physician: Fam Gupta D.O. Date of Service: 04/29/25 Procedure(s): XR hip LT 1V w/ pelvis Accession Number(s): [id number] cc: MASON JOHNSON ; Fam Gupta D.O. [facility] [place] [id number] Patient Name: ANN ROOT MRN: [facility]:[id number] date: 1945 Sex: M Assigned Patient Location: LAB Current Patient Location: LAB Accession/Order Number: [id number] Exam Date: 04/29/2025 12:41 Report Date: 04/29/2025 18:23 At the request of: FAM GUPTA DO Procedure: XR hip LT 1V w/ pelvis Single view pelvis and single view left hip INDICATION: Primary osteoarthritis the left hip COMPARISON: MRI left hip 03/12/2025 FINDINGS: Moderate degenerative changes right hip and moderate to severe degenerative changes left hip with joint space narrowing, osteophytosisand subchondral cyst formation. Enthesopathy involving the trochantericregion noted. Degenerative changes both sacral joints. No diastases noted. XR/XR hip LT 1V w/ pelvis IMPRESSION: Moderate severe degenerative changes left hip. Negative acute osseous abnormalities. Impression dictated by: Hernandez Rosales M.D. 04/29/2025 6:23 PM Dictation Location: RADIO-PC-29 Electronically authenticated by: [id number] Y Date: 8:23 Dictated By: Hernandez Rosales M.D. Signed By:04/29/251824 DD/ 22 TD/TT: Archeologist: Authorizing ProviderResult TypeResult StatusGeneric External Data ProviderIMG XR PROCEDURESFinal Result documented in this encounter Visit Diagnoses Not on filedocumented in this encounter Additional Health Concerns AssessmentNoted TimePHQ-9 Depression Total Score: 5:03 PM EST documented as of this encounter Care Teams Team MemberRelationshipSpecialtyStart DateEnd Date Mason Johnson MD [address] [facility] [address] [place] [address] PCP - GeneralInternal Mkoqjfkg10/11/24 Mason Johnson MD [address] [facility] [address] [place] [address] PCP - Medical [place] MA07/08/2511documented as of this encounter
--- OUTSIDE RECORDS SUMMARY | 2025-05-07 08:44 | XMS_ITS | Clinical Summary ---
Author Organization [facility] Address [address] [place] [place] [address] Care Team Providers Care Cvor Nurse Name Role Phone Mason Johnson MD Primary Care Provider [phone] Social History Tobacco UseTypesPacks/DayYears UsedDateSmoking Tobacco: Never AssessedSex and Gender InformationValueDate RecordedSex Assigned at BirthNot on fileLegal Sex Male01/03/2022 10:06 PM EDTGender IdentityNot on fileSexual OrientationNot on file Plan of Treatment DateTypeDepartmentCare Team (Latest Contact Info)Mthzsuwmnln29/10/2025 10:[address] [facility] [address] [place] [address] Kvng Sherwood MD [address] [place] [phone] Health MaintenanceDue DateLast DoneCommentsDiabetes: Hemoglobin A1C1945 Diabetes: Retinopathy Pxxokpbxy90/26/1954Depression Jnapxlaxn14/26/1956 Pneumococcal Vaccine: 50+ Years (1 of 2 - PCV)10/31/1962Zoster Vaccines (1 of 2) 10/31/1962Adult Vtahfkq4310/31/1965Fall Risk Gqmsexhti17/26/2009COVID-19 Vaccine (3 - Moderna risk series)103/08/2020, 08/09/2020Influenza Vaccine (#1) 501/02/2025, 06/20/2023, 05/03/2022, Additional history existsDiabetes: Urine Protein Rfftspfwh70/HIB VaccinesAged OutNo longer eligible based on patient's [...] Team MemberRelationshipSpecialtyStart DateEnd Date Mason Johnson MD [address] [place] [address] PCP - GeneralInternal Maydmick94/22/25
--- OUTSIDE RECORDS SUMMARY | 2025-05-07 08:44 | XMS_ITS | Encounter Summary ---
Author Organization [facility] Address [address] [place] [address] Care Team Providers Care Ribbon Cutter Name Role Phone Mason Johnson MD Primary Care Provider [phone] Mason Johnson MD Unavailable [phone] Encounter Details DateTypeDepartmentCare Team (Latest Contact Info)Hqofigtkbua82/23/2025Clinisync Result Encounter [facility] External Department Unsolicited Provider, [...] times a week06/10/2023How often do you attend confucianism or oriental orthodox services?Never06/10/2023o you belong to any clubs or organizations such as confucianism groups, unions, fraternal or athletic groups, or school groups?No 06/10/2023How often do you attend meetings of the clubs or organizations you belong to?Never06/10/2023re you , , , , never , or living with a partner?Lxuxtlx3806/10/2023UDIT-CAnswerDate RecordedQ1: How often do you have a drink containing alcohol?4 or more times a week 07/29/2023verage Number of DrinksNot on file07/29/2023Frequency of Binge DrinkingNot on file07/29/2023Overall Financial Resource Strain (CARDIA)Answer Date RecordedHow hard is it for you to pay for the very basics like food, housing, medical care, and heating?Very hard06/10/2023HQ-2AnswerDate Recorded Patient Health Questionnaire-2 Neivg313[facility] [place] of Occupational Health - Occupational Stress QuestionnaireAnswerDate [...] RecordedSex Assigned at BirthNot on file Legal UgyJzvs1609/19/2022 7:58 PM EDTGender IdentityNot on fileSexual Orientation Not on filedocumented as of this encounter Plan of Treatment DateTypeDepartmentCare Team (Latest Contact Info)Oijajzgyksi79/18/2025 9:20 AM ESTOffice Visit [facility] [place] [facility] [address] [place] [address] Mayte Stevens, PULPER TENDER-PRACTICAL NURSING FACULTY [address] [place], [place] [address] 06/16/2025 1:00 PM ESTOffice Visit [facility] [facility] [address] [place] [address] Jr. Fam Boyer DO [address] [place] [address] 07/20/2025 8:30 AM ESTOffice Visit [facility] [place] [facility] [address] [place] [phone] Leela Schwartz MD [address] [place] [address] documented as of this encounter Procedures Procedure NamePriorityDate/TimeAssociated DiagnosisCommentsSRMCOH PROTHROMBIN TIME INR W/O AZUNNrevbyp00/23/2025 12:17 PM EDT MHPT ZSIUBJTBZKUYOxrwefk87/23/2025 12:17 PM EDT [facility] CMP (CMP) (FOR REMOTE [facility] USE)Lulmekv5504/29/2025 12:17 PM EDT [facility] BLAZVmahalt15/23/2025 12:17 PM EDT ALL CBC WITH AUTO CMDANsgbztt77/23/2025 12:17 PM EDT URINE CULTURE - SKHQUuudgwo95/23/2025 12:06 PM EDT [facility] UA (CLEAN/CATCH) MICROSCOPIC IF VRAZNMYVQknmvin08/23/2025 12:06 PM EDT documented in this encounter Results * (ABNORMAL) MHPT DIFFERENTIAL (04/29/2025 12:17 PM EDT)ComponentValueRef Range Test MethodAnalysis TimePerformed AtPathologist SignatureSEGMENTED NEUTROPHILS % BLBDQQ72.0(H)43.0 - 75.0TBHBAND NEUTROPHILS %3.00 - 5 %TBHLYMPHOCYTES PERCENT MANUAL8.0(L)20.5 - 60.0 %TBHMONOCYTES PERCENT MANUAL2.01.7 - 12.0 %TBH EOSINOPHILS PERCENT MANUAL2.00.9 - 7.0 %TBHBASOPHILS PERCENT MANUAL2.00.2 - 2.0 %TBHSEGMENTED NEUT ABSOLUTE MANUAL5.141.4 - 6.5 10 3/uLTBHBAND NEUTROPHILS ABSOLUTE0.20.0 - 0.3 10 3/uLTBHLYMPHOCYTES ABSOLUTE MANUAL0.49(L)1.20 - 3.80 10 3/uLTBHMONOCYTES ABSOLUTE MANUAL0.12(L)0.30 - 0.80 10 3/uLTBHEOSINOPHILS ABSOLUTE MANUAL0.120.00 - 0.70 10 3/uLTBHBASOPHILS ABS MANUAL0.12(H)0.00 - 0.10 10 3/uLTBHSpecimen (Source)Anatomical Location / LateralityCollection Method / VolumeCollection TimeReceived Time10/ 12:17 PM EDT1 12:22 PM EDT Narrative [facility] - 04/29/2025 1:19 PM EDT Authorizing ProviderResult TypeResult StatusGeneric External Data Provider CLINISYNCFinal ResultPerforming OrganizationAddressCity/State/ZIP CodePhone Number [facility] * ALL CBC WITH AUTO DIFF (04/29/2025 12:17 PM EDT)ComponentValueRef RangeTest MethodAnalysis TimePerformed AtPathologist SignatureTBH WBC6.24.0 - 11.0 10 3/uLTBHTBH RBC4.764.70 - 6.10 10 6/uLTBHTBH HGB14.114.0 - 18.0 g/dLTBHTBH HCT 42.542.0 - 54.0 %TBK[facility] MCV89.380.0 - 94.0 fLTBHTBH MCH29.625.9 - 34.0 pgTBH TB MCHC33.229.9 - 35.2 g/dLTBHTBH RDW14.311.0 - 15.0 %TBKET[facility] WSS748942 - 450 10 3/uLTBHTBH MPV9.89.5 - 13.5 fLTBHSpecimen (Source)Anatomical Location / LateralityCollection Method / VolumeCollection TimeReceived Time04/29/2025 12:17 PM EDT1 12:22 PM EDT Narrative [facility] - 04/29/2025 1:19 PM EDT Authorizing ProviderResult TypeResult StatusGeneric External Data Provider CLINISYNCFinal ResultPerforming OrganizationAddressCity/State/ZIP CodePhone Number [facility] * [facility] APTT (04/29/2025 12:17 PM EDT)ComponentValueRef RangeTest MethodAnalysis TimePerformed AtPathologist SignaturePARTIAL THROMBOPLASTIN TIME29.822.3 - 36.2 secTBHSpecimen (Source)Anatomical Location / LateralityCollection Method / VolumeCollection TimeReceived Time04/29/2025 12:17 PM EDT1 12:22 PM EDT Narrative [facility] - 04/29/2025 12:56 PM EDT Authorizing ProviderResult TypeResult StatusGeneric External Data Provider CLINISYNCFinal ResultPerforming OrganizationAddressCity/State/ZIP CodePhone Number [facility] * SRMCOH PROTHROMBIN TIME INR W/O COUM (04/29/2025 12:17 PM EDT)ComponentValue Ref RangeTest MethodAnalysis TimePerformed AtPathologist SignaturePROTHROMBIN TIME11.39.0 - 11.6 secTBHTBH INR1.07TBHComment: DESIRED INR: 2.0-3.0 CONDITIONS NOT LISTED BELOW 2.5-3.5 FOR PROSTHETIC HEART VALVE REPLACEMENT 2.5-3.5 RECURRENT THROMBOSIS Specimen (Source)Anatomical Location / LateralityCollection Method / Volume Collection TimeReceived Time04/29/2025 12:17 PM EDT1 12:22 PM EDT Narrative CLINSRAVANINC - 04/29/2025 12:56 PM EDT Authorizing ProviderResult TypeResult StatusGeneric External Data Provider CLINISYNCFinal ResultPerforming OrganizationAddressCity/State/ZIP CodePhone Number [facility] * (ABNORMAL) [facility] CMP (CMP) (FOR REMOTE [facility] USE) (04/29/2025 12:17 PM EDT) ComponentValueRef RangeTest MethodAnalysis TimePerformed AtPathologist UsdjijtdtOQFWQG809910 - 145 mmol/LTBHPOTASSIUM4.13.5 - 5.1 mmol/LTBHCHLORIDE 55606 - 107 mmol/LTBHCARBON FHDWHOP90.221.0 - 32.0 mmol/LTBHANION GAP13.9TBH HXMGTQN530(H)74 - 106 mg/dLTBHBLOOD UREA AMACSOQL22.07.0 - 18.0 mg/dLTBH CREATININE1.180.70 - 1.30 mg/dLTBHTBH EGFR-AF BULGARIAN>60>=60 mL/min/1.73m 2 TBHTBH EGFR-NON AF DCTIMDWU10(L)>=60 mL/min/1.73m 2TBHBUN CREATININE RATIO13.6 TBHCALCIUM9.48.5 - 10.1 mg/dLTBHBILIRUBIN TOTAL0.60.2 - 1.0 mg/dLTBHASPARTATE AMINO OALZITUDQMH3243 - 37 U/LTBHALANINE OEAGDMNRCADTTIQH1292 - 63 U/LTBH ALKALINE RYDIXMOIVFG64218 - 116 U/LTBHTOTAL PROTEIN7.76.4 - 8.2 g/dLTBHALBUMIN LEVEL3.83.4 - 5.0 g/dLTBHGLOBULIN3.9g/dLTBHALBUMIN GLOBULIN RATIO1.0TBH Specimen (Source)Anatomical Location / LateralityCollection Method / Volume Collection TimeReceived Time04/29/2025 12:17 PM EDT1 12:22 PM EDT Narrative CLINISYHI - 04/29/2025 12:55 PM EDT Authorizing ProviderResult TypeResult StatusGeneric External Data Provider CLINISYNCFinal ResultPerforming OrganizationAddressCity/State/ZIP CodePhone Number [facility] * URINE CULTURE - FR (04/29/2025 12:06 PM EDT)ComponentValueRef RangeTest MethodAnalysis TimePerformed AtPathologist SignatureURINE CULTURE - [facility] ??Urine Culture - [facility] No Growth 2 Days TBHURINE CULTURE - FRMCTBHURINE CULTURE - FRTesting performed at [facility] CenterTB[facility]INE CULTURE - [id number] [place] [address] TBHSpecimen (Source)Anatomical Location / LateralityCollection Method / Volume Collection TimeReceived Time04/29/2025 12:06 PM EDT1 12:52 PM EDT Narrative TAYHI - 05/02/2025 5:24 PM EDT Authorizing ProviderResult TypeResult StatusGeneric External Data ProviderLAB BLOOD ORDERABLESFinal ResultPerforming OrganizationAddressCity/State/ZIP Code Phone Number [facility] * (ABNORMAL) [facility] UA (CLEAN/CATCH) MICROSCOPIC IF INDICATE (04/29/2025 12:06 PM EDT)ComponentValueRef RangeTest MethodAnalysis TimePerformed AtPathologist SignatureCOLOR URINELT. YELLOWYELLOWTBHCLARITY URINECLEARCLEARTBHSPECIFIC GRAVITY URINE1.0101.005 - 1.025TBHPH URINE6.55.0 - 9.0TBHPROTEIN URINENEGATIVE NEG/TRACE mg/dLTBHGLUCOSE URINE UA100(A)NEGATIVE mg/dLTBHBILIRUBIN URINE NEGATIVENEGATIVETBHKETONES URINENEGATIVENEGATIVE mg/dLTBHBLOOD URINENEGATIVE NEGATIVETBHNITRITE URINENEGATIVENEGATIVETBHUROBILINOGEN URINE1.00.2 - 1.0 EU/dLTBHLEUKOCYTE ESTERASE URINENEGATIVENEGATIVETBHURINE MICROSCOPIC INDICATED NOTBHSpecimen (Source)Anatomical Location / LateralityCollection Method / VolumeCollection TimeReceived Time04/29/2025 12:06 PM EDT1 12:52 PM EDT Narrative [facility] - 04/29/2025 1:07 PM EDT Authorizing ProviderResult TypeResult StatusGeneric External Data Provider CLINISYNCFinal ResultPerforming OrganizationAddressCity/State/ZIP CodePhone Number [facility] TB documented in this encounter Visit Diagnoses Not on filedocumented in this encounter Additional Health Concerns AssessmentNoted TimePHQ-9 Depression Total Score: 5:03 PM EST documented as of this encounter Care Teams Team MemberRelationshipSpecialtyStart DateEnd Date Mason Johnson MD [address] [facility] [address] [place] [address] PCP - GeneralInternal Bitrbpzr76/11/24 Mason Johnson MD [address] [facility] [address] [place] [address] PCP - Medical [place] MA/documented as of this encounter
--- OUTSIDE RECORDS SUMMARY | 2025-05-07 08:44 | XMS_ITS | Encounter Summary ---
Author Organization [facility] Address [address] [place] [address] Care Team Providers Care Configuration Management Architect Name Role Phone Mason Johnson MD Primary Care Provider [phone] Mason Johnson MD Unavailable [phone] Encounter Details DateTypeDepartmentCare Team (Latest Contact Info)Fcezdezmfiq58/24/2025Abstract [facility] [place] [facility] [address] [facility] [address] [place] [address] Mason Johnson MD [address] [facility] [address] [place] [address] Social History Tobacco UseTypesPacks/DayYears UsedDateSmoking [...] week06/10/2023How often do you attend mandaeism or christian services?Never06/10/2023o you belong to any clubs or organizations such as mandaeism groups, unions, fraternal or athletic groups, or school groups?No 06/10/2023How often do you attend meetings of the clubs or organizations you belong to?Never06/10/2023re you , , , , never , or living with a partner?Akccapu4206/10/2023UDIT-CAnswerDate RecordedQ1: How often do you have a drink containing alcohol?4 or more times a week 07/29/2023verage Number of DrinksNot on file07/29/2023Frequency of Binge DrinkingNot on file07/29/2023Overall Financial Resource Strain (CARDIA)Answer Date RecordedHow hard is it for you to pay for the very basics like food, housing, medical care, and heating?Very hard06/10/2023HQ-2AnswerDate Recorded Patient Health Questionnaire-2 Gywwh851Finmountainstar healthcare [place] of Occupational Health - Occupational Stress QuestionnaireAnswerDate [...] RecordedSex Assigned at BirthNot on file Legal QauEurw0209/19/2022 7:58 PM EDTGender IdentityNot on fileSexual Orientation Not on filedocumented as of this encounter Plan of Treatment DateTypeDepartmentCare Team (Latest Contact Info)Rwbqfrajylk98/18/2025 9:20 AM ESTOffice Visit [facility] [place] [facility] [address] [place] [address] Mayte Stevens, PAYER SPECIALIST-JAVA SOFTWARE ARCHITECT [address] [place], [place] [address] 06/16/2025 1:00 PM ESTOffice Visit [facility] [place] [facility] [address] [place] [address] Jr. Fam Boyer DO [address] [place] [address] 07/20/2025 8:30 AM ESTOffice Visit [facility] [place] [facility] [address] [place] [address] Leela Schwartz MD [address] [place] [address] documented as of this encounter Visit Diagnoses Not on filedocumented in this encounter Additional Health Concerns AssessmentNoted TimePHQ-9 Depression Total Score: 5:03 PM EST documented as of this encounter Care Teams Team MemberRelationshipSpecialtyStart DateEnd Date Mason Johnson MD [address] [place], [place] [phone] PCP - GeneralInternal Lqdjuagq19/11/24 Mason Johnson MD [address] [place], [place] [address] PCP - Medical [place] MA07/08/2511documented as of this encounter
--- OUTSIDE RECORDS SUMMARY | 2025-05-07 08:44 | XMS_ITS | Clinical Summary ---
Author Organization [facility] Address [address] [place] [address] Care Team Providers Care Developing Machine Tender Name Role Phone Mason Johnson MD Primary Care Provider [phone] Mason Johnson MD Unavailable [phone] Allergies Active AllergyReactionsCriticalityNoted DateCommentsStatinsGI intolerance 06/10/2023 [...] Daily,(No times of day reported), Reported on 04/30/2025 metFORMIN (Glucophage) 500 MG tablet Indications:Type 2 diabetes mellitus without complication, without long-term current use of insulin (HCC)Take 1 tablet (500 mg) by mouth Daily 100 tablet 305/305Active Additional Information Patient taking differently:500 mg Oral Daily,(No times of day reported), Reported on 04/30/2025 metoprolol succinate XL (Toprol-XL) 25 MG 24 hr tablet Indications:Primary hypertensionTake 1 tablet (25 mg) by mouth Daily Do not crush or chew. 90 tablet 5Active Additional Information Patient taking differently:25 mg Oral Daily,(No times of day reported), Do not crush or chew., Reported on 04/30/2025 tiZANidine (Zanaflex) 4 MG tablet Indications:TorticollisTake 1 tablet (4 mg) by mouth in the morning and 1 tablet (4 mg) before bedtime. 60 tablet 5Active traMADol (Ultram) 50 MG tablet Indications:Pseudogout involving multiple jointsTake 2 tablets (100 mg) by mouth every 8 (eight) hours if needed for severe pain 40 tablet Expired methylPREDNISolone (Medrol Dospak) 4 MG tablets Indications:Left hip painFollow schedule on package instructions 21 tablet Discontinued Active Problems ProblemNoted DateDiagnosed DateHistory of heart artery stent04/30/2025Pseudogout involving multiple weqpcw5803/26/2025Spondylosis of cervical region without myelopathy or aycjqitnsojqg21/21/2025Primary osteoarthritis of left hip 10/26/2024Separation of right acromioclavicular joint10/16/2024Hyperlipidemia 12/16/2023Throat toccwa3612/04/2023Neck muscle spasm11/20/2023 Assessment & Plan (11/20/2023 11:00 [...] it. Educated and counseled on it. Facial bkmave6501/21/2023rteriosclerotic cardiovascular tepmixo0901/15/2023 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, without long-term current use of jhmfsdd0201/15/2023 Assessment & Plan (12/16/2023 9:48 AM EDT): [...] months ago. GERD (gastroesophageal reflux disease)01/15/2023History of [place] (myocardial infarction)01/15/2023HTN (hypertension)01/15/2023 Assessment & Plan (12/16/2023 [...] OJEDA (nonalcoholic steatohepatitis)01/15/2023iastasis recti01/15/2023ancer of base of sdsfjd9712/15/2022 Overview (01/15/2023): Diagnosed 07/31/22. Diffusely p16 positive poorly differentiated SCCA. CT shows >5 cm tongue basemass and multiple morphologically abnormal, but normal sized LN in LT zone 2. Radiation completed 10/22/22. Monthly checks began 11/2022. Metastatic cancer to cervical lymph nodes12/15/2022Stage 2 chronic kidney hbivcyc5411/01/2022 Assessment & Plan (12/16/2023 9:46 AM EDT): CKD 2, likely age related. Monitor. Avoid NSAIDS. Chemotherapy-induced anvgwgxwiqc31/14/2023olon fqvhjw9711/19/2012 Resolved Problems ProblemNoted DateDiagnosed DateResolved DateType 2 diabetes mellitus without dvsmtaylldudv59Diastasis rectiisorder of ebyyhfof17lucose vhbpfhersfg07History of colonic zivzsa65History of malignant neoplasm of colon 3244Ftsfrofeczuzkbgeysvy17/11/202307/11/2023Raynaud's syndrome Vitamin D xdjfqlpzpd39Overweight12/15/2022 12/15/2022cute pain of right qatagnjs23asal cell carcinoma (BCC) of facehemotherapy-induced ghjywmfgndr98/14/2023 01/15/2023 Encounters DateTypeDepartmentCare OdpwZqgexsrulnl55/27/2025Telephone [facility] [place] [facility] [address] [facility] [address] [place] [phone] Mason Johnson MD 05/03/2025Telephone [facility] [address] [place] [phone] Georgiana Armenta MA Cardiac Kxwicxrpo44/24/2025 11:45 AM EDTOffice Visit [facility] [place] [facility] [address] [facility] [address] [place] [phone] Mason Johnson MD Primary osteoarthritis of left hip (Primary Dx); 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, without long-term current use of insulin (HCC); Coronary artery disease involving tununak coronary artery of tununak heart without angina pectoris; Abnormal EKG; History of heart artery stent04/30/20259355Dtnnih54/24/2025bstract [facility] [place] [facility] [address] [facility] [address] [place] [phone] Mason Johnson MD 04/29/2025External Result Encounter [facility] External Department Unsolicited Jr. Mechelle Boyer, DO 04/29/2025linisync Result Encounter [facility]OM[facility] External Department Unsolicited Provider, Generic External Data 04/29/2025linisync Result Encounter NOMS External Department Unsolicited Provider, Generic External Data 04/29/2025linisync Result Encounter NOMS External Department Unsolicited Provider, Generic External Data 04/29/2025Telephone [facility] [address] [facility] [place] [phone] Jr. Mechelle Boyer, Lab Work04/28/2025 9:00 AM EDTOffice Visit [facility] [address] [place] [address] [place] [phone] Jr. Mechelle Boyer, DO Primary osteoarthritis of left hip (Primary Dx); Pre-op ybmbxlazmn66/22/2025Telephone [facility] [address] [place] [address] [place] [phone] Georgiana Armenta MA Hold Hznhll4704/28/2025amboo flowsheet [facility] [address] [place] [address] [place] [phone] Jr. Mechelle Boyer, DO 04/28/20252398Ohfaqq48/14/2025 8:00 AM EDTOffice Visit [facility] [place] [facility] [address] [place] [address] [place] [address] Leela Schwartz MD 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)04/20/2025Telephone [facility] [place] [facility] [address] [place] [address] [place] [address] Mason Johnson MD 04/20/2025amboo flowsheet [facility] [place] [facility] [address] [place] [address] [place] [address] Leela Schwartz MD 04/20/20257619Wfadhi85/13/2025Telephone [facility] [facility] [address] [place] [address] [place] [phone] Jr. Mechelle Boyer, DO hip THA04/14/2025 1:15 PM EDTOffice Visit [facility] [address] [place] [address] [place] [phone] Jr. Mechelle Boyer, DO Left hip pain (Primary Dx); Pseudogout involving multiple joints; Primary osteoarthritis of left hip04/14/2025 1:10 PM EDTAncillary Procedure [facility] [place] [facility] [address] [place] [address] [place] [phone] 04/14/2025amboo flowsheet [facility] [place] [facility] [address] [place] [address] [place] [address] Jr. Mechelle Boyer, DO 04/14/20253455Nxvgas52/25/2025bstract [facility] [place] [facility] [address] [place] [address] [place] [address] Mason Johnson MD 03/30/2025bstract [facility] [place] [facility] [address] [facility] [address] [place] [address] Mason Johnson MD 03/26/2025 11:00 AM EDTOffice Visit [facility] [place] [facility] [address] [facility] [address] [place] [address] Mason Johnson MD Primary osteoarthritis of left hip (Primary Dx); Pseudogout involving multiple joints; Primary hypertension ; 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, without long-term current use of insulin (HCC); Moderate mixed hyperlipidemia not requiring statin omktfmv16/19/2025Bamboo flowsheet [facility] [place] [facility] [address] [facility] [address] [place] [address] Mason Johnson MD 03/26/20252030Bkpcfj28/05/2025Clinisync Result Encounter [facility]OM[facility] External Department Unsolicited Mason Johnson MD 03/01/2025Telephone [facility] [place] [facility] [address] [facility] [address] [place] [phone] Mason Johnson MD mri drrarll7002/11/2025bstract [facility] [place] [facility] [address] [facility] [address] [place] [address] Mason Johnson MD from Last 3 Months Immunizations ImmunizationAdministration DatesNext DueInfluenza, High Dose Seasonal, Preservative Free05/19/2019Influenza, High-dose Seasonal, Quadrivalent, Preservative Free07/15/2024Influenza, Seasonal, Quadrivalent, Adjuvanted 06/20/2023,05/03/2022,06/15/2021Influenza, injectable, MDCK, preservative free, jvxgywgadayb81/18/2018Influenza, seasonal, ishsbbtwxv82/01/2022Influenza, seasonal, injectable, preservative free06/21/2015Novel efdxzcnyl-B5X0-63, preservative-free06/20/2009 Family History * Patient is adopted [...] week06/10/2023How often do you attend voodoo or congregation services?Never06/10/2023o you belong to any clubs or organizations such as voodoo groups, unions, fraternal or athletic groups, or school groups?No 06/10/2023How often do you attend meetings of the clubs or organizations you belong to?Never06/10/2023re you , , , , never , or living with a partner?Qlooivs5206/10/2023UDIT-CAnswerDate RecordedQ1: How often do you have a drink containing alcohol?4 or more times a week 07/29/2023verage Number of DrinksNot on file07/29/2023Frequency of Binge DrinkingNot on file07/29/2023Overall Financial Resource Strain (CARDIA)Answer Date RecordedHow hard is it for you to pay for the very basics like food, housing, medical care, and heating?Very hard06/10/2023HQ-2AnswerDate Recorded Patient Health Questionnaire-2 Wabck815FinS[facility] - Occupational Stress QuestionnaireAnswerDate [...] steady place to sleep or slept in brandywineelt (including now)?No06/10/2023 Sex and Gender InformationValueDate RecordedSex Assigned at BirthNot on file Legal BjbYkzs6409/19/2022 7:58 PM EDTGender IdentityNot on fileSexual Orientation Not on file Last Filed Vital Signs Vital SignReadingTime TakenCommentsBlood Xcynzggc990/7610/ 11:43 AM EDT Nyetg257104/30/2025 11:43 AM EMAEvwbvqqqkft54.4 ??C (97.5 ??F)12/16/2023 9:07 AM EDTRespiratory Rate--Oxygen Qqiavztyeh59%04/30/2025 11:43 AM EDTInhaled Oxygen Concentration--Ujwyks46.4 kg (197 lb)04/30/2025 11:43 AM QZDWanext781.2 cm (5' 7 )04/30/2025 11:43 AM EDTBody Mass Index30.8504/30/2025 11:43 AM EDT Plan of Treatment DateTypeDepartmentCare Team (Latest Contact Info)Xruedzsombm53/18/2025 9:20 AM ESTOffice Visit [facility] [address] [place] [phone] Mayte Stevens, SYSTEM AUDITOR-CONSUMER ANALYST [address] [place] [address] 06/16/2025 1:00 PM ESTOffice Visit [facility] [address] [place] [address] [place] [phone] Jr. Mechelle Boyer, [address] [place] [address] 07/20/2025 8:30 AM ESTOffice Visit [facility] [place] [facility] [address] [facility] [address] [place] [phone] Leela Schwartz MD [address] [facility] [address] [place] [address] Health MaintenanceDue DateLast DoneCommentsDTaP/Tdap/Td Vaccines (1 - Tdap) 10/31/1950Hepatitis A Vaccines (1 of 2 - Risk 2-dose series)10/31/1962 Pneumococcal Vaccine: 65+ Years (1 of 2 - PCV)10/31/1962Hepatitis B Vaccines (1 of 3 - Risk 3-dose series)2003COVID-19 Vaccine (3 - Moderna risk series) 103/08/2020, 1Diabetes: Retinopathy Dyjrozhwy02/01/2025 09/05/2022Influenza Vaccine (#1)501/02/2025, 06/20/2023, 05/03/2022, Additional history existsDiabetes: Hemoglobin A1C/10/2024, 08/31/2024, 11/20/2023, Additional history existsMedicare Annual Wellness (AWV) 6008/31/2024, 3Diabetes: Urine Protein Nqgxfoqbo35/19/2026 03/26/2025, 02/06/2023, 02/06/2023HIB VaccinesAged OutNo longer eligible based on patient's age to complete this topicHPV VaccinesAged OutNo longer eligible based on patient's age to complete this topicIPV VaccinesAged OutNo longer eligible based on patient's age to complete this topicMeningococcal B Vaccine Aged OutNo longer eligible based on patient's age to complete this topic Meningococcal VaccineAged OutNo longer eligible based on patient's age to complete this topicRotavirus VaccinesAged OutNo longer eligible based on patient's age to complete this topic Procedures Procedure NamePriorityDate/TimeAssociated DiagnosisCommentsXR HIP 1 VW LEFT 04/29/2025 6:23 PM EDT ECG 12-LEAD04/29/2025 12:39 PM EDT MHPT YWNHVSOMHXKJVmbbqil74/23/2025 12:17 PM EDT ALL CBC WITH AUTO QHLFXclulrg53/23/2025 12:17 PM EDT CCF QBDIKkiozla30/23/2025 12:17 PM EDT SRMCOH PROTHROMBIN TIME INR W/O XKZVVjpjson22/23/2025 12:17 PM EDT [facility] CMP (CMP) (FOR REMOTE [facility] USE)Mvqbapa98/ 12:17 PM EDT URINE CULTURE - ZVWQZciqzgc05/23/2025 12:06 PM EDT [facility] UA (CLEAN/CATCH) MICROSCOPIC IF LJLELKMZNtibxbd60/23/2025 12:06 PM EDT CULTURE, URINE, UTGXCRJJbvwbfw23/23/2025 12:06 PM EDT XR HIP 2 OR 3 VW SNSZHhqvqky11/08/2025 1:06 PM EDT Left hip pain COMPREHENSIVE METABOLIC DOHABRiscjve22/19/2025 11:19 AM EDT Primary hypertension 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, without long-term current use of insulin (HCC) Moderate mixed hyperlipidemia not requiring statin therapy MICROALBUMIN / CREATININE URINE TJZIHGsdgmjq76/19/2025 11:19 AM EDT Primary hypertension 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, without long-term current use of insulin (HCC) Moderate mixed hyperlipidemia not requiring statin therapy LIPID VEUZBStawrbo26/19/2025 11:19 AM EDT Primary hypertension 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, without long-term current use of insulin (HCC) Moderate mixed hyperlipidemia not requiring statin therapy MR HIP LEFT WO IV QVIAZRKM74/05/2025 3:44 PM EDT POCT GLYCATED HEMOGLOBIN, FAMFTFbtfect45/04/2025 11:30 AM EDT Inflammatory arthritis from Last 3 Months or Most Recently Relevant to Health Maintenance Results * XR hip left 1 view (04/29/2025 6:23 PM EDT)Anatomical RegionLateralityModality Lower Extremities, HipLeftRadiographic ImagingSpecimen (Source)Anatomical Location / LateralityCollection Method / VolumeCollection TimeReceived Time 04/29/2025 6:23 PM EDT Narrative 04/29/2025 6:[address] [facility] ?[address] ? [place] [address] ?XRay Report ? Signed ? Patient: ROOT,ANN D ?MR#: [id number] ?? : 1945 ?Acct:[id number] ?? Age/Sex: 79 / M ?ADM Date: 10/23/25 ?? Loc: LAB ? Attending Dr: Mechelle Boyer D.O. ? Ordering Physician: Mechelle Boyer D.O. ?? Date of Service: 04/29/25 ?? Procedure(s): XR hip LT 1V w/ pelvis ?? Accession Number(s): [id number] ? cc: MASON JOHNSON ; Mechelle Boyer D.O. ? [facility] ? [address] ? [place] [address] ? Patient Name: ?? ANNDEEPAK ROOT ? MRN: [facility]:[id number] ? date: 1945 ?Sex: M ?? Assigned Patient Location: LAB ?? Current Patient Location: LAB ?? Accession/Order Number: [id number] ?? Exam Date: 04/29/2025 ??12:41 ?Report Date: 04/29/2025 ??18:23 ? At the request of: ?? MECHELLE ??ALONSO ??DO ? Procedure: ??XR hip LT [...] Dictation Location: RADIO-PC-29 ? Electronically authenticated by: [id number] ??Y ?? Date: 04/29/2025 ??18:23 ? Dictated By: ?Hernandez Rosales M.D. ? Signed By: ?04/29/255 ? DD/ ? TD/TT: ? Shell Sieve Operator: Procedure Note Radiology, Radiologist, MD - 04/30/[address] [address] XRay Report Signed Patient: ANN ROOT DMR#: [id number] : 1945cct:[id number] Age/Sex: 79 / MADM Date: 04/29/25 Loc: LAB Attending Dr: Mechelle Boyer D.O. Ordering Physician: Mechelle Boyer D.O. Date of Service: 04/29/25 Procedure(s): XR hip LT 1V w/ pelvis Accession Number(s): [id number] cc: MASON JOHNSON ; Mechelle Boyer D.O. The [place] [id number] Patient Name: ANN ROOT MRN: [facility]:[id number] date: 1945 Sex: M Assigned Patient Location: LAB Current Patient Location: LAB Accession/Order Number: [id number] Exam Date: 04/29/2025 12:41 Report Date: 04/29/2025 18:23 At the request of: MECHELLE BOYER DO Procedure: XR hip LT 1V w/ [...] Rosales M.D. 04/29/2025 6:23 PM Dictation Location: [place] [address] Electronically authenticated by: [id number] Y Date: 8:23 Dictated By: Hernandez Rosales M.D. Signed By:04/29/251824 DD/ 22 TD/TT: Shell Sieve Operator: Authorizing ProviderResult TypeResult StatusGeneric External Data ProviderIMG XR PROCEDURESFinal Result * ECG 12-LEAD (04/29/2025 12:39 PM EDT)Anatomical RegionLateralityModalityOther Specimen (Source)Anatomical Location / LateralityCollection Method / Volume Collection TimeReceived Time04/29/2025 12:39 PM EDT Narrative 04/29/2025 7:[address] [facility] ?[address] ? [place], [facility] ? Electrocardiograph Report ? Signed ? Patient: ROOT,ANN D ?MR#: [id number] ?? : 1945 ?Acct:[id number] ?? Age/Sex: 79 / M ?ADM Date: 04/29/25 ?? Loc: LAB ? Attending Dr: Mechelle Boyer D.O. ? Ordering Physician: Mechelle Boyer D.O. ?? Date of Service: 04/29/25 ?? Procedure(s): ECG 12 lead ?? Accession Number(s): [id number] ? cc: ?[facility] ? Test Date: ?2025-04-29 ?? Pat Name: ? ANN ROOT ?Department: ? Room: ? - ?? Gender: ? Male ? Subway Guard: ? : ?1945 ? Requested By: MASON JOHNSON ?? Order Number: [id number] ?Reading MD: ?? MECHELLE ??Sarah SCHMIDT ? Measurements ?? Intervals ?[place] ? Rate: ? 84 ? P: ? SD: ?QRS: ?-10 ?? QRSD: ? 114 ?T: ?54 ?? QT: ? 337 ? QTc: ?399 ? Interpretive Statements ?? ATRIAL FLUTTER ?? INCOMPLETE RIGHT BUNDLE BRANCH BLOCK [90+ ms QRS DURATION, TERMINAL R IN ?? V1/V2, ?? 40+ ms S IN I/aVL/V4/V5/V6] ?? ABNORMAL ECG ?? Compared to ECG 07/27/2022 09:22:49 ?? Incomplete right bundle-branch block now present ?? Sinus bradycardia no longer present ?? Electronically Signed On 04-29-2025 19:19:53 EDT by MECHELLE ??Sarha SCHMIDT ? Dictated By: ?MECHELLE SCHMIDT ? Signed By: ?04/29/251919 ?04/29/250 ? DD/ 1239 ? TD/TT: ? Shell Sieve Operator: Procedure Note Radiology, Radiologist, MD - 04/29/2025 [place] [address] Electrocardiograph Report Signed Patient: ANN ROOT [facility]#: [id number] : 1946Acct:[id number] Age/Sex: 79 / MADM Date: 04/29/25 Loc: LAB Attending Dr: Mechelle Boyer D.O. Ordering Physician: Mechelle Boyer D.O. Date of Service: 04/29/25 Procedure(s): ECG 12 lead Accession Number(s): [id number] cc: [facility] Test Date: 2025-04-29 Pat Name: ANN ROOT Department: Room: - Gender: Male Subway Guard: : 1945 Requested By: MASON JOHNSON Order Number: [id number] Reading MD: MECHELLE SCHMIDT M.D. Measurements Intervals [place] Rate: 84 P: SD: QRS: -10 QRSD: 114 T: 54 QT: 337 QTc: 399 Interpretive Statements ATRIAL FLUTTER INCOMPLETE RIGHT BUNDLE BRANCH BLOCK [90+ ms QRS DURATION, TERMINAL R IN V1/V2, 40+ ms S IN I/aVL/V4/V5/V6] ABNORMAL ECG Compared to ECG 07/27/2022 09:22:49 Incomplete right bundle-branch block now present Sinus bradycardia no longer present Electronically Signed On 04-29-2025 19:19:53 EDT by MECHELLE SCHMIDT M.D. Dictated By: MECHELLE SCHMIDT Signed By:04/29/25191904/29/251919 DD/ 1239 TD/TT: Shell Sieve Operator: Authorizing ProviderResult TypeResult StatusGeneric External Data Provider CLINISYNC IMAGINGFinal Result * SRMCOH PROTHROMBIN TIME INR W/O COUM [...] Provider CLINISYNCFinal ResultPerforming OrganizationAddressCity/State/ZIP CodePhone Number [facility]INISYNC [facility] * (ABNORMAL) MHPT DIFFERENTIAL (04/29/2025 12:17 PM EDT)ComponentValueRef Range Test MethodAnalysis TimePerformed AtPathologist SignatureSEGMENTED NEUTROPHILS % RBNKOE30.0(H)43.0 - 75.0TBHBAND NEUTROPHILS %3.00 - 5 %TBHLYMPHOCYTES [...] Data Provider CLINISYNCFinal ResultPerforming OrganizationAddressCity/State/ZIP CodePhone Number CLINYVAN [facility] * (ABNORMAL) [facility] CMP (CMP) (FOR REMOTE [facility] USE) (04/29/2025 12:17 PM EDT) ComponentValueRef RangeTest MethodAnalysis TimePerformed AtPathologist EigeaxnkiFISUTG236582 - 145 mmol/LTBHPOTASSIUM4.13.5 - 5.1 mmol/LTBHCHLORIDE 98052 - 107 mmol/LTBHCARBON ZZHIRLD65.221.0 - 32.0 mmol/LTBHANION GAP13.9TBH XHBIEIU150(H)74 - 106 mg/dLTBHBLOOD UREA KJHGROED72.07.0 - 18.0 mg/dLTBH CREATININE1.180.70 - 1.30 mg/dLTBHTBH EGFR-AF BOTSWANAN>60>=60 mL/min/1.73m 2 TBHTBH EGFR-NON AF MEHBXXAM17(L)>=60 mL/min/1.73m 2TBHBUN CREATININE RATIO13.6 TBHCALCIUM9.48.5 - 10.1 mg/dLTBHBILIRUBIN TOTAL0.60.2 - 1.0 mg/dLTBHASPARTATE AMINO EQAXZKBDZSQ0889 - 37 U/LTBHALANINE IBUORNYJGLYQESHU0449 - 63 U/LTBH ALKALINE DOVGGPECTUH72907 - 116 U/LTBHTOTAL PROTEIN7.76.4 - 8.2 g/dLTBHALBUMIN LEVEL3.83.4 - 5.0 g/dLTBHGLOBULIN3.9g/dLTBHALBUMIN GLOBULIN RATIO1.0TBH Specimen (Source)Anatomical Location / LateralityCollection Method / Volume Collection TimeReceived Time04/29/2025 12:17 PM EDT1 12:22 PM EDT Narrative CLINISYAZ - 04/29/2025 12:55 PM EDT Authorizing ProviderResult TypeResult StatusGeneric External Data Provider CLINISYNCFinal ResultPerforming OrganizationAddressCity/State/ZIP CodePhone Number [facility] * [facility]CF APTT (04/29/2025 12:17 PM EDT)ComponentValueRef RangeTest MethodAnalysis TimePerformed AtPathologist SignaturePARTIAL THROMBOPLASTIN TIME29.822.3 - 36.2 secTBHSpecimen (Source)Anatomical Location / LateralityCollection Method / VolumeCollection TimeReceived Time04/29/2025 12:17 PM EDT1 12:22 PM EDT Narrative CLINISYNC - 04/29/2025 12:56 PM EDT Authorizing ProviderResult TypeResult StatusGeneric External Data Provider CLINISYNCFinal ResultPerforming OrganizationAddressty/State/ZIP CodePhone Number [facility] * ALL CBC WITH AUTO DIFF (04/29/2025 12:17 PM EDT)ComponentValueRef RangeTest MethodAnalysis TimePerformed AtPathologist SignatureTBH WBC6.24.0 - 11.0 10 3/uLTBHTBH RBC4.764.70 - 6.10 10 6/uLTBHTBH HGB14.114.0 - 18.0 g/dLTBHT HCT 42.542.0 - 54.0 %[facility] MCV89.380.0 - 94.0 fLTASTRIA SUNNYSIDE [facility] MCH29.625.9 - 34.0 pgTBH [facility] MCHC33.229.9 - 35.2 g/dLTBKETTERING [facility]ALTH [facility] RDW14.311.0 - 15.0 %[facility] RDD168988 - 450 10 3/uLTBHTBH MPV9.89.5 - 13.5 fLTBHSpecimen (Source)Anatomical Location / LateralityCollection Method / VolumeCollection TimeReceived Time04/29/2025 12:17 PM EDT1 12:22 PM EDT Narrative CLINISYNC - 04/29/2025 1:19 PM EDT Authorizing ProviderResult TypeResult StatusGeneric External Data Provider CLINISYNCFinal ResultPerforming OrganizationAddressCity/State/ZIP CodePhone Number [facility] * URINE CULTURE - [facility] (04/29/2025 12:06 PM EDT)ComponentValueRef RangeTest MethodAnalysis TimePerformed AtPathologist SignatureURINE CULTURE - [facility] ??Urine Culture - [facility] No Growth 2 Days TBHURINE CULTURE - [facility] NORMANTBHURINE CULTURE - [facility] NORMANTesting performed at [facility]TBRINE CULTURE - [id number] [place] [address] TBHSpecimen (Source)Anatomical Location / LateralityCollection Method / Volume Collection TimeReceived Time04/29/2025 12:06 PM EDT1 12:52 PM EDT Narrative CLINISYNC - 05/02/2025 5:24 PM EDT Authorizing ProviderResult TypeResult StatusGeneric External Data ProviderLAB BLOOD ORDERABLESFinal ResultPerforming OrganizationAddressCity/State/ZIP Code Phone Number [facility] * (ABNORMAL) [facility] UA (CLEAN/CATCH) MICROSCOPIC IF INDICATE (04/29/2025 12:06 [...] Provider CLINISYNCFinal ResultPerforming OrganizationAddressCity/State/ZIP CodePhone Number CLINISYNC [facility] * Urine culture (04/29/2025 12:06 PM EDT)ComponentValueRef RangeTest Method Analysis TimePerformed AtPathologist SignatureFR NOTENo Growth 2 Days 05/02/2025 10:12 AM EDRegional Medical Center CtrSpecimen (Source) Anatomical Location / LateralityCollection Method / VolumeCollection Time Received TimeUrineUrine specimen obtained by clean catch procedure / Unknown 04/29/2025 12:06 PM EDT1 12:40 PM EDTComment:Clean-Voided Midstream Narrative Authorizing ProviderResult TypeResult StatusJr. Mechelle ZIEGLER MICROBIOLOGY - GENERAL ORDERABLESFinal ResultPerforming OrganizationAddress City/State/ZIP CodePhone Number [facility] [address] [place] [address], [facility] [address] [place] [address] * XR hip left 2 or 3 [...] disease, left hip Authorizing ProviderResult TypeResult StatusJr. Mechelle Boyer [facility]MG XR PROCEDURESFinal Result * Microalbumin / creatinine, urine ratio (03/26/2025 11:19 AM EDT)ComponentValue Ref RangeTest MethodAnalysis TimePerformed AtPathologist SignatureCREATININE, RANDOM DYQGG6074 - 320 mg/dLQUESTALBUMIN, URINE0.8See Note: mg/dLQUESTComment: Reference [...] specimen obtained by clean catch procedure / Sbolsui9903/26/2025 11:19 AM EDT03/26/2025 11:20 AM EDT Narrative [facility] - 03/27/2025 12:54 PM EDT FASTING:YES FASTING: YES Resulting Agency Comment Performing Organization Information ?Site ID: QPT ?Name: [employer] [facility] ?Address: [address] [place] [address], [address] [place] [phone] ?Director: Maged Olson MD Authorizing ProviderResult TypeResult StatusDalaron Johnson MDLAB URINE ORDERABLESFinal ResultPerforming OrganizationAddressCity/State/ZIP CodePhone Number QUEST * Lipid panel (03/26/2025 11:19 AM EDT)ComponentValueRef RangeTest Method Analysis TimePerformed AtPathologist SignatureCHOLESTEROL, IMJUS839<200 mg/dL QUESTHDL STPABFSUMOK85> OR = 40 mg/nQPZTMYSABXEUDFUIRSS46<150 mg/dLQUESTLDL QUEFZTVAQXG02yn/dL (calc)QUESTComment: Reference range: <100 Desirable range <100 mg/dL for primary prevention; <70 mg/dL for patients with CHD or diabetic patients with > or = 2 CHD risk factors. LDL-C is now calculated using the Monroe-Alverto calculation, which is a validated novel method providing better accuracy than the Friedewald equation in the estimation of LDL-C. Monroe SS et al. TITI. 2013;310(19): 5893-4198 (http://education.[employer]/faq/KXN835) CHOL/HDLC RATIO2.8<5.0 (calc)QUESTNON HDL JKGQNWXYSWB18<130 mg/dL (calc)QUEST Comment: For patients with diabetes plus 1 major ASCVD risk factor, treating to a non-HDL-C goal of <100 mg/dL (LDL-C of <70 mg/dL) is considered a therapeutic option. Specimen (Source)Anatomical Location / LateralityCollection Method / Volume Collection TimeReceived TimeBloodVenous blood specimen / Fmxuxhd0103/26/2025 11:19 AM EDT03/26/2025 11:20 AM EDT Narrative [facility] - 03/27/2025 12:54 PM EDT FASTING:YES FASTING: YES Resulting Agency Comment Performing Organization Information ?Site ID: QPT ?Name: [employer] [facility] ?Address: [address] [place] [address], [address] [place] [phone] ?Director: Maged Olson MD Authorizing ProviderResult TypeResult [...] should be confirmed with a follow-up test. MMR539 - 25 mg/dLQUESTCreatinine1.28(H)0.70 - 1.22 mg/xASNIPQMJND31(L)> OR = 60 mL/min/1.56t8ODVVIAIZ/CREATININE XKMYZ397 - 22 (calc)EUXUTUphhfw845445 - 146 mmol/LQUESTPotassium, Bld4.33.5 - 5.3 mmol/AIEEZIOgszkqym59890 - 110 mmol/LQUEST Carbon Tpaikaf4131 - 32 mmol/LQUESTCalcium9.18.6 - 10.3 mg/dLQUESTPROTEIN, TOTAL 6.56.1 - 8.1 g/dLQUESTALBUMIN4.03.6 - 5.1 g/dLQUESTGLOBULIN2.51.9 - 3.7 g/dL (calc)QUESTALBUMIN/GLOBULIN RATIO1.61.0 - 2.5 (calc)QUESTBILIRUBIN, TOTAL1.00.2 - 1.2 mg/dLQUESTALKALINE TCAPFGZFKZW8567 - 144 U/TWPRTGNNE3836 - 35 U/LQUESTALT 49(H)9 - 46 U/LQUESTSpecimen (Source)Anatomical Location / LateralityCollection Method / VolumeCollection TimeReceived TimeBloodVenous blood specimen / Unknown 03/26/2025 11:19 AM EDT03/26/2025 11:20 AM EDT Narrative [facility]ST - 03/27/2025 12:54 PM EDT FASTING:YES FASTING: YES Resulting Agency Comment Performing Organization Information ?Site ID: QPT ?Name: [employer] [facility] ?Address: [address] [place] [address], [address] [place] [phone] ?Director: Maged Olson MD Authorizing ProviderResult TypeResult StatusDalaron Johnson MDLAB BLOOD ORDERABLESFinal ResultPerforming OrganizationAddressCity/State/ZIP CodePhone Number QUEST * MR hip left wo IV contrast (03/12/2025 3:44 PM EDT)Anatomical RegionLaterality ModalityLower Extremities, HipLeftMagnetic ResonanceSpecimen (Source) Anatomical Location / LateralityCollection Method / VolumeCollection Time Received Time03/12/2025 3:44 PM EDT Narrative 03/12/2025 3:[address] [facility] ?[address] ? [place] [address] ? Magnetic Resonance Report ? Signed ? Patient: ANN ROOT D ?MR#: [id number] ?? : 1945 ?Acct:[id number] ?? Age/Sex: 79 / M ?ADM Date: 03/12/25 ?? Loc: MRI ? Attending Dr: MASON JOHNSON ? Ordering Physician: MASON JOHNSON ?? Date of Service: 03/12/25 ?? Procedure(s): MR hip LT wo con ?? Accession Number(s): [id number] ? cc: MASON JOHNSON ? [facility] ? [address] ? [place] [address] ? Patient Name: ?? ANN ROOT ? MRN: [facility]:[id number] ? date: 1945 ?Sex: M ?? Assigned Patient Location: MRI ?? Current Patient Location: MRI ?? Accession/Order Number: [id number] ?? Exam Date: 03/12/2025 ??10:00 ?Report Date: [...] M.D. ??03/12/2025 3:44 PM ? Dictation Location: [place] [address] ? Electronically authenticated by: [id number] ??Y ?? Date: 03/12/2025 ??15:44 ? Dictated By: ?El Burnett M.D. ? Signed By: ?03/12/25 1546 ? DD/ 1544 ? TD/TT: ? Shell Sieve Operator: Procedure Note Radiology, Radiologist, MD - 03/12/2025 [place] [address] Magnetic Resonance Report Signed Patient: ANN ROOT DMR#: [id number] : 4Acct:[id number] Age/Sex: 79 / MADM Date: 03/12/25 Loc: MRI Attending Dr: MASON JOHNSON Ordering Physician: MASON JOHNSON Date of Service: 03/12/25 Procedure(s): MR bernal LT wo con Accession Number(s): [id number] cc: MASON JOHNSON The [place] [id number] Patient Name: ANN ROOT MRN: [id number] date: 1945 Sex: M Assigned Patient Location: MRI Current Patient Location: MRI Accession/Order Number: [id number] Exam Date: 03/12/2025 10:00 Report Date: 03/12/2025 [...] Burnett M.D. 03/12/2025 3:44 PM Dictation Location: [place] [address] Electronically authenticated by: [id number] Y Date: 5:44 Dictated By: El Burnett M.D. Signed By:03/12/25 1546 DD/ 1544 TD/TT: Shell Sieve Operator: Authorizing ProviderResult TypeResult StatusMason Johnson MDIMG MRI PROCEDURES Final Result * POCT Glycated hemoglobin, total (12/09/2024 11:30 AM EDT)ComponentValueRef RangeTest MethodAnalysis TimePerformed AtPathologist SignatureHemoglobin A1C 7.1Specimen (Source)Anatomical Location / LateralityCollection Method / Volume Collection TimeReceived GzjkNpobb46/04/2025 11:30 AM EDT Narrative Authorizing ProviderResult TypeResult StatusMason Johnson MDPOINT OF CARE TEST ENTER/EDIT ORDERABLESFinal Result from Last 3 Months or Most Recently Relevant to Health Maintenance Insurance * Guarantor: Ann Root DAccount TypeRelation to PatientDate of BirthPhone Billing AddressPersonal/FwtolpPzpz56/26/1946 [address] [address] Care Teams Team MemberRelationshipSpecialtyStart DateEnd Mason Johnson MD [address] [facility] [address] [place] [address] PCP - GeneralInternal Ewibvqpf70/11/24 Mason Johnson MD [address] [facility] [address] [place] [address] PCP - Medical [facility]07/08/2511
--- OUTSIDE RECORDS SUMMARY | 2025-05-07 08:44 | XMS_ITS | Encounter Summary ---
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 Procedures STRESS NUCLEAR MEDICINE Mason Mukherjee MD [address] [facility] [address] [place] [address] Phone: tel: fax: [facility] Schedule fax: Referral IDStatusReasonStart DateExpiration DateVisits RequestedVisits [id number]/27/20254/ Encounter Details DateTypeDepartmentCare Team (Latest Contact Info)Edhtbypfqgw60/27/2025Telephone [facility] [place] [facility] [address] [facility] [address] [place] [phone] Mason Johnson MD [address] [facility] 110 [place], [place] [id number] Social History Tobacco UseTypesPacks/DayYears UsedDateSmoking Tobacco: NeverPassive [...] week06/10/2023How often do you attend lutheran or cheondoism services?Never06/10/2023o you belong to any clubs or organizations such as lutheran groups, unions, fraternal or athletic groups, or school groups?No 06/10/2023How often do you attend meetings of the clubs or organizations you belong to?Never06/10/2023re you , , , , never , or living with a partner?Zgnatgz7306/10/2023UDIT-CAnswerDate RecordedQ1: How often do you have a drink containing alcohol?4 or more times a week 07/29/2023verage Number of DrinksNot on file07/29/2023Frequency of Binge DrinkingNot on file07/29/2023Overall Financial Resource Strain (CARDIA)Answer Date RecordedHow hard is it for you to pay for the very basics like food, housing, medical care, and heating?Very hard06/10/2023HQ-2AnswerDate Recorded Patient Health Questionnaire-2 Qnpdt045Fin[facility] [place] of Occupational Health - Occupational Stress QuestionnaireAnswerDate [...] steady place to sleep or slept in [facility] (including now)?No06/10/2023 Sex and Gender InformationValueDate RecordedSex Assigned at BirthNot on file Legal AqaKmfy2409/19/2022 7:58 PM EDTGender IdentityNot on fileSexual Orientation Not on filedocumented as of this encounter Miscellaneous Notes * Telephone Encounter - Earlene Blanchard MA - 05/03/2025 2:15 PM EDT Resent new order * Telephone Encounter - Radha Padilla - 05/03/2025 11:53 AM EDT Patient told the [facility] that he cannot do the stress test that was ordered because he isunable to go on the tredmill with his hip issues. They asked for an updated order of a isaías scan to be sent over there instead of the other test. documented in this encounter Plan of Treatment DateTypeDepartmentCare Team (Latest Contact Info)Qevhjecceyv33/18/2025 9:20 AM ESTOffice Visit [facility] [place] [facility] [address] [place] [phone] Mayte Stevens APRN-LAUNDRY HOUSEKEEPER [address] [place], [place] [address] 06/16/2025 1:00 PM ESTOffice Visit [facility] [place] [facility] [address] [place] [phone] Jr. 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
--- OUTSIDE RECORDS SUMMARY | 2025-05-07 08:44 | XMS_ITS | Encounter Summary ---
Author Organization [facility] Address [address] [place] [address] Care Team Providers Care Grocery Store Associate Name Role Phone Mason Johnson MD Primary Care Provider [phone] Mason Johnson MD Unavailable [phone] Reason for Visit * ReasonOnset DateCommentsCardiac Arpablepb04/27/2025 Encounter Details DateTypeDepartmentCare Team (Latest Contact Info)Cufiiiyzzrx17/27/2025Telephone [facility] [address] [place] [address] Georgiana Armenta MA Cardiac Clearance Social History Tobacco UseTypesPacks/DayYears UsedDateSmoking Tobacco: NeverPassive [...] times a week06/10/2023How often do you attend jewish or tenriism services?Never06/10/2023o you belong to any clubs or organizations such as jewish groups, unions, fraternal or athletic groups, or school groups?No 06/10/2023How often do you attend meetings of the clubs or organizations you belong to?Never06/10/2023re you , , , , never , or living with a partner?Abjtjzm9506/10/2023UDIT-CAnswerDate RecordedQ1: How often do you have a drink containing alcohol?4 or more times a week 07/29/2023verage Number of DrinksNot on file07/29/2023Frequency of Binge DrinkingNot on file07/29/2023Overall Financial Resource Strain (CARDIA)Answer Date RecordedHow hard is it for you to pay for the very basics like food, housing, medical care, and heating?Very hard06/10/2023HQ-2AnswerDate Recorded Patient Health Questionnaire-2 Wfbtc673Finmountain point medical center [place] of Occupational Health - Occupational Stress QuestionnaireAnswerDate [...] RecordedSex Assigned at BirthNot on file Legal PrsOxmm0209/19/2022 7:58 PM EDTGender IdentityNot on fileSexual Orientation Not on filedocumented as of this encounter Miscellaneous Notes * Telephone Encounter - Georgiana Armenta MA - 05/03/2025 8:42 AM EDT Patient saw Dr. Johnson on Saturday and he would like him to see cardiology. He is seeing Dr. Presley Sierra. I will send a clearance letter to his office and after he is cleared, the patient can getback on the schedule. documented in this encounter Plan of Treatment DateTypeDepartmentCare Team (Latest Contact Info)Ddwtfyzsaoc38/18/2025 9:20 AM ESTOffice Visit [facility] [address] [place] [address] Mayte Stevens, COMMERCIAL BAKING TEACHER-THERAPY MANAGER [address] [place] [address] 06/16/2025 1:00 PM ESTOffice Visit [facility] [address] [place] [address] Jr. Fam Boyer, DO [address] [place] [address] 07/20/2025 8:30 AM ESTOffice Visit [facility] [place] [facility] [address] [place] [address] Leela Schwartz MD [address] [place] [address] documented as of this encounter Visit Diagnoses Not on filedocumented in this encounter Additional Health Concerns AssessmentNoted TimePHQ-9 Depression Total Score: 5:03 PM EST documented as of this encounter Care Teams Team MemberRelationshipSpecialtyStart DateEnd Date Mason Johnson MD [address] [place] [address] PCP - GeneralInternal Kdrrewzx23/11/24 Mason Johnson MD [address] [place] [address] PCP - Medical [place]07/08/2511documented as of this encounter
--- OUTSIDE RECORDS SUMMARY | 2025-05-07 08:44 | XMS_ITS | Encounter Summary ---
Author Organization [facility] Address [address] [place] [address] Care Team Providers Care Broaching Machine Operator Name Role Phone Mason Johnson MD Primary Care Provider [phone] Mason Johnson MD Unavailable [phone] Encounter Details DateTypeDepartmentCare Team (Latest Contact Info)Dkcwfgqhkix71/23/2025Clinisync Result Encounter [facility] External Department Unsolicited Provider, [...] times a week06/10/2023How often do you attend cheondoism or bahai services?Never06/10/2023o you belong to any clubs or organizations such as cheondoism groups, unions, fraternal or athletic groups, or school groups?No 06/10/2023How often do you attend meetings of the clubs or organizations you belong to?Never06/10/2023re you , , , , never , or living with a partner?Fesesfm2006/10/2023UDIT-CAnswerDate RecordedQ1: How often do you have a drink containing alcohol?4 or more times a week 07/29/2023verage Number of DrinksNot on file07/29/2023Frequency of Binge DrinkingNot on file07/29/2023Overall Financial Resource Strain (CARDIA)Answer Date RecordedHow hard is it for you to pay for the very basics like food, housing, medical care, and heating?Very hard06/10/2023HQ-2AnswerDate Recorded Patient Health Questionnaire-2 Gjpff473Finmountain [facility] medical center [place] of Occupational Health - Occupational Stress QuestionnaireAnswerDate [...] RecordedSex Assigned at BirthNot on file Legal BmqBaer9309/19/2022 7:58 PM EDTGender IdentityNot on fileSexual Orientation Not on filedocumented as of this encounter Plan of Treatment DateTypeDepartmentCare Team (Latest Contact Info)Xibwnlklcgj97/18/2025 9:20 AM ESTOffice Visit [facility] [place] [facility] [address] [place] [address] Mayte Stevens, DISTRIBUTION TRANSFORMER ASSEMBLER-GOVERNMENT AFFAIRS FELLOW [address] [place], [place] [address] 06/16/2025 1:00 PM ESTOffice Visit [facility] [place] [facility] [address] [place] [phone] Jr. Fam Boyer DO [address] [place] [address] 07/20/2025 8:30 AM ESTOffice Visit [facility] [place] [facility] [address] [place] [address] Leela Schwartz MD [address] [place] [address] documented as of this encounter Procedures Procedure NamePriorityDate/TimeAssociated DiagnosisCommentsECG 12-04/29/2025 12:39 PM EDT documented in this encounter Results * ECG 12-LEAD (04/29/2025 12:39 PM EDT)Anatomical RegionLateralityModalityOther Specimen (Source)Anatomical Location / LateralityCollection Method / Volume Collection TimeReceived Time04/29/2025 12:39 PM EDT Narrative 04/29/2025 7:20 PM EDT [facility] ?[address] ? [place] [address] ? Electrocardiograph Report ? Signed ? Patient: ANN ROOT D ?MR#: [id number] ?? : 1945 ?Acct:[id number] ?? Age/Sex: 79 / M ?ADM Date: 04/29/25 ?? Loc: LAB ? Attending Dr: Fam Boyer D.O. ? Ordering Physician: Fam Boyer D.O. ?? Date of Service: 04/29/25 ?? Procedure(s): ECG 12 lead ?? Accession Number(s): [id number] ? cc: ?[facility] ? Test Date: ?2025-04-29 ?? Pat Name: ? ANN ROOT ?Department: ? Room: ? - ?? Gender: ? Male ? Harp Maker: ? : ?1945 ? Requested By: MASON JOHNSON ?? Order Number: [id number] ?Reading MD: ?? FAM ??Sarah SCHMIDT ? Measurements ?? Intervals ?Guild ? Rate: ? 84 ? P: ? [place]: ?QRS: ?-10 ?? QRSD: ? 114 ?T: [...] Electronically Signed On 04-29-2025 19:19:53 EDT by FAM ??Sarah SCHMIDT ? Dictated By: ?FAM SCHMIDT ? Signed By: ?04/29/25 1920 ?04/29/25 1920 ? DD/ 1239 ? TD/TT: ? Child Care Provider: Procedure Note Radiology, Radiologist, MD - 04/29/[address] [address] Electrocardiograph Report Signed Patient: ANN ROOT [facility]#: [id number] : 4Acct:[id number] Age/Sex: 79 / MADM Date: 04/29/25 Loc: LAB Attending Dr: Fam Boyer D.O. Ordering Physician: Fam Boyer D.O. Date of Service: 04/29/25 Procedure(s): ECG 12 lead Accession Number(s): [id number] cc: [facility] Test Date: 2025-04-29 Pat Name: ANN ROOT Department: Room: - Gender: Male Harp Maker: : 1945 Requested By: MASON JOHNSON Order Number: [id number] Reading MD: FAM SCHMIDT M.D. Measurements Intervals Guild Rate: 84 P: [place]: QRS: -10 QRSD: 114 T: 54 QT: 337 QTc: 399 Interpretive Statements ATRIAL FLUTTER INCOMPLETE RIGHT BUNDLE BRANCH BLOCK [90+ ms QRS DURATION, TERMINAL R IN V1/V2, 40+ ms S IN I/aVL/V4/V5/V6] ABNORMAL ECG Compared to ECG 07/27/2022 09:22:49 Incomplete right bundle-branch block now present Sinus bradycardia no longer present Electronically Signed On 04-29-2025 19:19:53 EDT by FAM SCHMIDT M.D. Dictated By: FAM SCHMIDT Signed By:04/29/25191904/29/25 192 DD/ 1239 TD/TT: Child Care Provider: Authorizing ProviderResult TypeResult StatusGeneric External Data Provider CLINISYNC IMAGINGFinal Result documented in this encounter Visit Diagnoses Not on filedocumented in this encounter Additional Health Concerns AssessmentNoted TimePHQ-9 Depression Total Score: 5:03 PM EST documented as of this encounter Care Teams Team MemberRelationshipSpecialtyStart DateEnd Date Mason Johnson MD [address] [facility] [address] [place] [address] PCP - GeneralInternal Pdrdhjly56/11/24 Mason Johnson MD [address] [place] [address] PCP - Medical [facility]07/08/2511documented as of this encounter
--- OUTSIDE RECORDS SUMMARY | 2025-05-07 08:44 | XMS_ITS | Encounter Summary ---
Author Organization [facility] Address [address] [place] [address] Care Team Providers Care Boiler Mechanic Name Role Phone Juliet Tiradomart EVERETT Unavailable John Valladares MD Unavailable [phone] Natalie Cadena APRN.SHOPPER'S AIDE Unavailable [phone] Yordan Randolph MD Unavailable [phone] Marysol Purvis LEAD HOUSEKEEPER Unavailable Unavailable Alex OLIVAS MD, Mason Regan Primary Care Provider [phone] Source Comments In the event this information is protected by the Federal Confidentiality of Alcohol and Drug AbusePatient Records regulations: The Federal rules restrict any use of the information to criminally investigate or prosecute any alcohol or drug abuse patient.[facility] Encounter Details DateTypeDepartmentCare Team (Latest Contact Info)Ezfahesmlzj12/23/2025Travel Social History Tobacco UseTypesPacks/DayYears UsedDateSmoking Tobacco: NeverPassive Smoke Exposure: NeverSmokeless Tobacco: NeverAlcohol UseStandard Drinks/WeekComments Yes0 (1 standard drink = 0.6 oz pure alcohol)daily 3 beersPHQ-2AnswerDate RecordedPHQ-2 zknke7285Area Deprivation IndexAnswerDate RecordedNational Score (1-100), lower number is lower ihhy144911/07/2022State Score (1-10), lower number is lower wvbq314/03/2023Data from: https://www.neighborhoodatlas.[facility]/. Last address used for [address] [place] [address]/07/2022Sex and Gender InformationValueDate Recorded Sex Assigned at BirthNot on fileLegal DrkXfgz83/02/2012 10:15 AM ESTGender IdentityNot on fileSexual OrientationNot on filedocumented as of this encounter Functional Status * Are you deaf or do you have serious difficulty hearing?AnswerDate of ZtwybdegszSjntamXk85/23/2014 11:20 AM Jasmyn Anthony * Are you blind or do you have serious difficulty seeing, even when wearing glasses?AnswerDate of BlqcorilufFtbyypOa10/23/2014 11:20 AM Jasmyn Anthony * Do you have serious difficulty walking or climbing stairs?AnswerDate of AgcxwdbsuyUvmvzoCe87/23/2014 11:20 AM Jasmyn Anthony * Do you have difficulty dressing or bathing?AnswerDate of AssessmentAuthorNo 04/29/2014 11:20 AM Jasmyn Anthony * Because of a physical, mental, or emotional condition, do you have difficulty doing errands alone such as visiting a doctor's office or shopping?AnswerDate of FxlbomsaatPbyiigBg01/23/2014 11:20 AM Jasmyn Anthony documented as of this encounter Mental Status * Because of a physical, mental, or emotional condition, do you have serious difficulty concentrating, remembering, or making decisions?AnswerEntry Date ZpxvzfPu75/23/2014 11:20 AM Jasmyn Anthony documented in this encounter Plan of Treatment DateTypeDepartmentCare Team (Latest Contact Info)Jvngivgvpcp13/22/2026 8:15 AM EDTAppointment Radiology Pet CT [address] [place] [address] CT Chest and neck with bicnuzio84/29/2026 10:00 AM EDTOffice Visit Radiation Oncology [address] [place] [address] Yordan Randolph MD [address] [place] [address] 1 year follow up05/05/2026 10:40 AM EDTVisit (SP) Office Hematology/Oncology [address] [place] [address] John Valladares MD [address] [place] [address] 1 year follow up for lab and ct scan resultsdocumented as of this encounter Visit Diagnoses Not on filedocumented in this encounter Care Teams Team MemberRelationshipSpecialtyStart DateEnd Date Mason Johnson II, MD [address] [place] [address] PCP - GeneralInternal Hcsqzbhu87/30/[address] [place] [address] Registered DietitianNutrition08/20/22 John Valladares MD [address] [place] [address] [place] [address] PhysicianHematology/Oncology08/21/22 Natalie Cadena APRN.SHOPPER'S AIDE [address] [facility] [place] [address] Nurse PractitionerHematology/Oncology08/21/22 Yordan Randolph MD [address] [place] [address] [place] [address] PhysicianRadiation Oncology08/21/22 Marysol Purvis LSW Social Worker09/07/22documented as of this encounter
--- OUTSIDE RECORDS SUMMARY | 2025-05-07 08:44 | XMS_ITS | Encounter Summary ---
Author Organization [facility] Address [address] [place] [address] Care Team Providers Care Verification Specialist Name Role Phone Mason Johnson MD Primary Care Provider [phone] Mason Johnson MD Unavailable [phone] Encounter Details DateTypeDepartmentCare Team (Latest Contact Info)Cgtthgnachj18/24/2025Travel Social History Tobacco UseTypesPacks/DayYears UsedDateSmoking Tobacco: NeverPassive [...] times a week06/10/2023How often do you attend sikhism or islam services?Never06/10/2023o you belong to any clubs or organizations such as sikhism groups, unions, fraternal or athletic groups, or school groups?No 06/10/2023How often do you attend meetings of the clubs or organizations you belong to?Never06/10/2023re you , , , , never , or living with a partner?Ereuvsl4406/10/2023UDIT-CAnswerDate RecordedQ1: How often do you have a drink containing alcohol?4 or more times a week 07/29/2023verage Number of DrinksNot on file07/29/2023Frequency of Binge DrinkingNot on file07/29/2023Overall Financial Resource Strain (CARDIA)Answer Date RecordedHow hard is it for you to pay for the very basics like food, housing, medical care, and heating?Very hard06/10/2023HQ-2AnswerDate Recorded Patient Health Questionnaire-2 Ieeoh876Fin[facility] [place] [facility] - Occupational Stress QuestionnaireAnswerDate [...] RecordedSex Assigned at BirthNot on file Legal CybSwsp0509/19/2022 7:58 PM EDTGender IdentityNot on fileSexual Orientation Not on filedocumented as of this encounter Plan of Treatment DateTypeDepartmentCare Team (Latest Contact Info)Oriykmrjllf10/18/2025 9:20 AM ESTOffice Visit [facility] [place] [address] [place] [address] Mayte Stevens, MEDICAL PRACTICE ADMINISTRATOR-ANALYSIS TESTER [address] [place], [place] [id number] 06/16/2025 1:00 PM ESTOffice Visit [facility] [address] [place] [address] Jr. Fam Boyer DO [address] [place] [address] 07/20/2025 8:30 AM ESTOffice Visit [facility] [place] [facility] [address] [place] [address] Leela Schwartz MD [address] [place] [address] documented as of this encounter Visit Diagnoses Not on filedocumented in this encounter Additional Health Concerns AssessmentNoted TimePHQ-9 Depression Total Score: 5:03 PM EST documented as of this encounter Care Teams Team MemberRelationshipSpecialtyStart DateEnd Date Mason Johnson MD [address] [facility] [address] [place] [address] PCP - GeneralInternal Cwgwjdaf00/11/24 Mason Johnson MD [address] [facility] [address] [place] [address] PCP - Medical [place]07/08/2511documented as of this encounter
--- OUTSIDE RECORDS SUMMARY | 2025-05-07 08:44 | XMS_ITS | Clinical Summary ---
Author Organization [facility] Address [address] [place], [place] [id number] Care Team Providers Care Coding Compliance Auditor Name Role Phone Christopher Tiradodavid EVERETT Unavailable [phone] John Valladares MD Unavailable [phone] Natalie Cadena APRN.[employer] Unavailable [phone] Yordan Randolph MD Unavailable [phone] Marysol Purvis STORE TEAM MEMBER Unavailable Unavailable Alex OLIVAS MD, Daniel B Primary Care Provider [phone] Allergies Active AllergyReactionsCriticalityNoted ZasgFgmyrcwqPiitdnf-Wfi-Fbh Reductase InhibitorsGI Upset06/10/2023 Medications MedicationSigDispense QuantityRefillsLast FilledStart DateEnd DateStatus Aspirin 81 mg tab 81 mg every other day.Active fenofibrate (LOFIBRA) 134 mg capsule Take 134 mg by mouth once daily.03/02/2016Active ergocalciferol 50,000 unit capsule (VITAMIN D2, DRISDOL) TAKE 1 CAPSULE BY MOUTH FHBDXK1907/05/2022ctive metFORMIN (GLUCOPHAGE) 500 mg tablet Take 500 mg by mouth once daily.06/12/2022ctive metoprolol succinate ER (TOPROL XL) 25 mg 24 hr tablet Take 25 mg by mouth once daily.06/12/2022ctive latanoprost (XALATAN) 0.005 % ophthalmic solution instill 1 (ONE) DROP IN BOTH EYES AT WFMERKP7705/01/2023ctive cholecalciferol, Vitamin D3, (VITAMIN D3) 1,250 mcg [...] contrast administration guidelines link. 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 Discontinue saline lock post exam. If Pt. has a central line or IVAD, may access for administration according to line specific nursing protocol. Once exam is complete flush line and de- access according to line specific nursing protocol in theCT contrast administration guidelines link. 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 1 each Expired Active Problems ProblemNoted DateDiagnosed DateDisorder of carbohydrate kipyngphmn62/07/2023 Stage 3 chronic kidney disease, unspecified whether stage 3a or 3b CKD2022 Cancer of the base of gcuklo4108/21/2022olon jxyvpl2511/19/2012 Resolved Problems ProblemNoted DateDiagnosed DateResolved DateChemotherapy-induced neutropenia /Overlapping malignant neoplasm of colon Encounters DateTypeDepartmentCare NunpOdybzudwtnc11/30/2025 10:30 AM EDTOffice Visit Radiation Oncology [address] [place] [address] Yordan Randolph MD Head and neck cancer (HCC) (Primary Dx); Acquired oxrkrdjxhasndu53/30/2025 10:00 AM EDTVisit (SP) Office Hematology/Oncology [address] [address] John Valladares MD 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); Lung nodules; Stage 3 chronic kidney disease, unspecified whether stage 3a or 3b CKD (HCC); Primary osteoarthritis of hip, unspecified ubgxrnywfn79/30/6074Wzsvkn18/23/2025 9:12 AM EDT - 04/29/2025 11:59 PM EDTHospital Encounter Radiology Pet CT [address] [address] 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) [C01] Discharge Disposition: Home04/29/2025Travelfrom Last 3 Months Immunizations ImmunizationAdministration DatesNext DueCOVID-19 original vaccine, full dose, monovalent (MODERNA)09/06/2020,08/09/2020influenza (HD-IIV3) vaccine, age 65+ yr, high dose, trivalent, PF (FLUZONE HIGH-DOSE)05/19/2019influenza (HD-IIV4) vaccine, age 65+ yr, high dose, quadrivalent, PF (FLUZONE HIGH-DOSE)07/15/2024 influenza (IIV3) vaccine, trivalent (AFLURIA, FLULAVAL, FLUVIRIN, FLUZONE) 04/07/2022influenza (IIV3) vaccine, trivalent, PF (AFLURIA, FLUARIX, FLULAVAL, FLUVIRIN, FLUZONE)06/21/2015influenza (LAIV) vaccine, nasal, unspecified gwmgayahwjm86/27/2022influenza (aIIV4) vaccine, age 65+ yr, quadrivalent, PF (FLUAD QUAD)06/20/2023,05/03/2022,06/15/2021influenza (ccIIV4) vaccine, age 6+ mo, quadrivalent, PF (FLUCELVAX)06/24/2018novel influenza (L6A9-48) vaccine, PF 06/20/2009 Social History Tobacco UseTypesPacks/DayYears UsedDateSmoking Tobacco: NeverPassive Smoke Exposure: NeverSmokeless Tobacco: Never Tobacco Cessation:Counseling Given: Not Answered Alcohol UseStandard Drinks/WeekCommentsYes0 (1 standard drink = 0.6 oz pure alcohol)daily 3 beersPHQ-2AnswerDate RecordedPHQ-2 pkvom304rea Deprivation IndexAnswerDate RecordedNational Score (1-100), lower number is lower wicn837211/07/2022State Score (1-10), lower number is lower zoxr213 Data from: https://www.neighborhoodatlas.[facility].edu/. Last address used for [address] [place] [address]/07/2022Sex and Gender InformationValueDate RecordedSex Assigned at BirthNot on fileLegal CrnSrhf24/02/2012 10:15 AM EST Gender IdentityNot on fileSexual OrientationNot on file Last Filed Vital Signs Vital SignReadingTime TakenCommentsBlood Byydukxo043/5305/06/2025 10:08 AM EDT Rvmcx263305/06/2025 10:08 AM CKOSivgxujsoik07.6 ??C (97.8 ??F)05/06/2025 10:08 AM EDTRespiratory Qwsj7149 10:08 AM EDTOxygen Nuydlqfiil96%05/06/2025 10:08 AM EDTInhaled Oxygen Concentration--Gzxryu14.8 kg (200 lb 2.8 oz)05/06/2025 10:08 AM DPFHzdhfk195.9 cm (5' 5.71 )05/06/2025 10:08 AM EDTBody Mass Index32.6 05/06/2025 10:08 AM EDT Plan of Treatment DateTypeDepartmentCare Team (Latest Contact Info)Sflqmfcjtik46/22/2026 8:15 AM EDTAppointment Radiology Pet CT [address] [place] [address] [place] [address] CT Chest and neck with tckbezmr64/29/2026 10:00 AM EDTOffice Visit Radiation Oncology [address] [place] [address] [place] [address] Yordan Randolph MD [address] [place] [address] [place] [address] 1 year follow up05/05/2026 10:40 AM EDTVisit (SP) Office Hematology/Oncology [address] [place] [address] [place] [address] John Valladares MD [address] [place] [address] [place] [address] 1 year follow up for lab and ct scan resultsHealth MaintenanceDue DateLast Done CommentsAnxiety Itakovqvw69/26/1962Depression Cepztkvsu68/26/1962DTaP,Tdap,Td Vaccine (1 - Tdap)10/31/1962Pneumococcal Vaccine: 50+ (1 of 1 - PCV)10/31/1993 Shingrix Vaccine (1 of 2)10/31/1993RSV Vaccine (1 - 1-dose 75+ series)10/31/2018 Advance Directive Imyefrukxk90/01/2025[facility] 5Covid-19 Vaccine (3 - season)503/08/2020, 08/09/2020 Influenza Vaccine (#1)501/02/2025, 06/20/2023, 05/03/2022, Additional history existsDiabetes Zzxaasntn43, 12/09/2024, 10/28/2024, Additional history exists Procedures Procedure NamePriorityDate/TimeAssociated DiagnosisCommentsCT CHEST W IVCON Elwwkih4104/29/2025 10:27 AM EDT 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 Stage 3 chronic kidney disease, unspecified whether stage 3a or 3b CKD (HCC) CT NECK SOFT TISSUE W DBXSUSbndmii84/23/2025 10:27 AM EDT 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 Stage 3 chronic kidney disease, unspecified whether stage 3a or 3b CKD (HCC) TSH OKTPdqfmgk42/23/2025 9:13 AM EDT Other specified disorders of thyroid CBC + XSDSOvfpsmz17/23/2025 9:13 AM EDT 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 If you are unable to reach us at the number above, please feel free to contact [facility] at [phone]. Narrative 04/29/2025 2:07 PM EDT * * *Final Report* * * DATE OF EXAM: Apr 29 2025 10:27AM ?? NR ?? 0539 ??- ??CT CHEST [...] images: No additional findings. Procedure Note Provider, [facility] [place] - 04/29/2025 * * *Final Report* * * DATE OF EXAM: Apr 29 2025 10:27AM [facility] 0539 - CT CHEST W [...] any questions regarding this interpretation, please call [phone]. If you are unable to reach us at the number above, please feel free to contact [facility] at [phone]. Authorizing ProviderResult TypeResult StatusVivek Abhyankar MDCT-PAMAFinal Result * CT NECK SOFT TISSUE W IVCON (04/29/2025 10:27 AM EDT)Anatomical Region LateralityModalityNeNHCA [facility], Nuclear [facility] (Source) Anatomical Location / LateralityCollection Method / [...] any questions regarding this interpretation, please call [phone]. If you are unable to reach us at the number above, please feel free to contact [facility] at [phone]. Narrative 04/29/2025 11:23 AM EDT * * [...] accession. Other: Not applicable. Procedure Note Provider, [facility] [place] - 04/29/2025 * * *Final Report* * * DATE OF EXAM: Apr 29 2025 10:27AM [facility] 0013 - CT NECK SOFT [...] any questions regarding this interpretation, please call [phone]. If you are unable to reach us at the number above, please feel free to contact [facility] at [phone]. Authorizing ProviderResult TypeResult StatusVivek Abhyankar MDCT-PAMAFinal Result * THYROID STIMULATING HORMONE (04/29/2025 9:13 AM EDT)ComponentValueRef Range Test MethodAnalysis TimePerformed AtPathologist SignatureTSH2.7600.270 - 4.200 mIU/L1 9:33 PM EDTCSELECT MEDICAL [facility] MAIN LABSpecimen (Source) Anatomical Location / LateralityCollection Method / VolumeCollection Time Received TimeBloodBLOOD SPECIMEN / UnknownVenipuncture / Ohxjwsd1604/29/2025 9:13 AM EDT1 9:22 AM EDT Narrative Authorizing ProviderResult TypeResult StatusG Jeyson Randolph MDLABORATORYFinal ResultPerforming OrganizationAddressCity/State/ZIP CodePhone Number [facility] [address] * (ABNORMAL) COMPREHENSIVE METABOLIC PANEL (04/29/2025 9:13 AM EDT)Component ValueRef RangeTest MethodAnalysis TimePerformed AtPathologist Signature Protein, Total7.16.3 - 8.0 g/dL04/29/2025 9:56 AM EDTNORTASPIRUS [facility] LABAlbumin4.23.9 - 4.9 g/dL04/29/2025 9:56 AM EDTNORTASPIRUS KEWEENAW [facility] LABCalcium, Total10.28.5 - 10.2 mg/dL04/29/2025 9:56 AM EDTNORTASPIRUS KEWEENAW [facility] LABBilirubin, Total0.50.2 - 1.3 mg/dL 04/29/2025 9:56 AM EDTNORTASPIRUS KEWEENAW [facility] LABAlkaline Ftosoipynpa9031 - 113 U/L1 9:56 AM EDTNORTASPIRUS KEWEENAW [facility] UTKLAO8315 - 40 U/L1 9:56 AM EDTNORTASPIRUS KEWEENAW [facility] KPFJLI0950 - 54 U/L1 9:56 AM EDH[facility] WENLpiyabr043(H)74 - 99 mg/dL04/29/2025 9:56 AM EDTNORTASPIRUS KEWEENAW [facility] LABComment: The [place] Diabetes Association (ADA) provides guidance [...] [place] Diabetes Association. Diabetes Care. 2016.39(Suppl 1). HYA772 - 24 mg/dL04/29/2025 9:56 AM [facility] Creatinine1.070.73 - 1.22 mg/dL04/29/2025 9:56 AM [facility] GWRLreqta420175 - 144 mmol/L1 9:56 AM [facility] LABPotassium4.53.7 - 5.1 mmol/L1 9:56 AM [facility] MCWBgdcjthb46582 - 107 mmol/L1 9:56 AM EDT [facility] NYHQU74758 - 30 mmol/L1 9:56 AM T [facility] LABAnion Btn570 - 15 mmol/L1 9:56 AM [facility] LABEstimated Glomerular Filtration Rate70 >=60 mL/min/1.73m 04/29/2025 9:56 AM [facility] LABComment:Estimated Glomerular Filtration Rate (eGFR) is [...] VolumeCollection TimeReceived TimeBloodBLOOD SPECIMEN / UnknownVenipuncture / Nmuhnqg8404/29/2025 9:13 AM EDT1 9:22 AM EDT Narrative Authorizing ProviderResult TypeResult StatusJohn Valladares MDLABORATORYFinal ResultPerforming OrganizationAddressCity/State/ZIP CodePhone Number [facility] [address] [place] [address] * (ABNORMAL) COMPLETE BLOOD COUNT AND DIFFERENTIAL (04/29/2025 9:13 AM EDT) ComponentValueRef RangeTest MethodAnalysis TimePerformed AtPathologist SignatureWBC5.883.70 - 11.00 k/uL04/29/2025 9:25 AM EDTNORTASPIRUS KEWEENA[facility] LABRBC4.504.20 - 6.00 m/uL04/29/2025 9:25 AM EDTNORTASPIRUS [facility] AJZGlrrvsduhg68.213.0 - 17.0 g/dL04/29/2025 9:25 AM EDT [facility] BUJAzesbcqnge41.339.0 - 51.0 %04/29/2025 9:25 AM EDTNORTASPIRUS [facility] FBAORG62.680.0 - 100.0 fL 04/29/2025 9:25 AM EDTNORTASPIRUS [facility] VZMXCW93.326.0 - 34.0 pg04/29/2025 9:25 AM EDTNORTHCASCENSION ST[facility] OVCRWHA17.830.5 - 36.0 g/dL04/29/2025 9:25 AM EDTNORTASPIRUS [facility] LABRDW-CV14.5 11.5 - 15.0 %04/29/2025 9:25 AM EDTNORTASPIRUS [facility] LAB Platelet Vtbyo553490 - 400 k/uL04/29/2025 9:25 AM EDTNORTASPIRUS [facility] LABMPV9.89.0 - 12.7 fL04/29/2025 9:25 AM EDH[facility] LABNeutrophils %79.1%04/29/2025 9:25 AM EDHIGHL[facility] LABAbs Neut4.661.45 - 7.50 k/uL04/29/2025 9:25 AM EDH[facility] LABLymphocytes %9.9%04/29/2025 9:25 AM EDHIG[facility] LABAbs Lymph0.58(L)1.00 - 4.00 k/uL04/29/2025 9:25 AM EDHIG[facility] LABMonocytes %7.8%04/29/2025 9:25 AM EDT [facility] LABAbs Mono0.46<0.87 k/uL04/29/2025 9:25 AM [facility] LABEosinophils %1.4%04/29/2025 9:25 AM [facility] LABAbs Eosin0.08<0.46 k/uL04/29/2025 9:25 AM [facility] LABBasophils %0.9%04/29/2025 9:25 AM [facility] LABAbs Baso0.05<0.11 k/uL04/29/2025 9:25 AM EDH[facility] LABImmature Granulocytes %0.9% 04/29/2025 9:25 AM [facility] LABAbs Immature Gran 0.05<0.10 k/uL04/29/2025 9:25 AM EDH[facility] LABNRBC 0.0/100 WBC04/29/2025 9:25 AM [facility] LABAbsolute nRBC<0.01<0.01 k/uL04/29/2025 9:25 AM EDHIGHL[facility] LABDiff UkixPhny78/23/2025 9:25 AM EDTNORTHCASCENSION STANDISH [facility] LAB Specimen (Source)Anatomical Location / LateralityCollection Method / Volume Collection TimeReceived TimeBloodBLOOD SPECIMEN / UnknownVenipuncture / Zxuxrzo6904/29/2025 9:13 AM EDT1 9:22 AM EDT Narrative Authorizing ProviderResult TypeResult StatusJohn Valladares MDLABORATORYFinal ResultPerforming OrganizationAddressCity/State/ZIP CodePhone Number [facility] [address] [place] [address] from Last 3 Months Insurance Care Teams Team MemberRelationshipSpecialtyStart DateEnd Mason Johnson II, MD [address] [place] [address] PCP - GeneralInternal Bwushjhb08/30/[address] [place] [address] Registered DietitianNutrition08/20/22 John Valladares MD [address] [place] [address] PhysicianHematology/Oncology08/21/22 Natalie Cadena APRN.[employer] [address] [place] [address] Nurse PractitionerHematology/Oncology08/21/22 Yordan Randolph MD [address] [place] [address] PhysicianRadiation Oncology08/21/22 Marysol Purvis LSW Social Worker09/07/22
--- OUTSIDE RECORDS SUMMARY | 2025-05-07 08:46 | XMS_ITS | CCD ---
Author Organization [facility] Care Team Providers Care Physical Education Aide Name Role Phone MANNIE NELSON Primary Care [...] Primary Care Provider Louise EVERETT, Dee Unavailable [phone] Jacquelyn WELCH, John Unavailable Surinder WAGNERN.CONICAL MIXER, Natalie Unavailable [phone] Paulino HORNER, Rafael Unavailable Yordan Feliz MD Unavailable Marysol Martinez Unavailable Unavailable Candida RD, Dee Unavailable Vidal WELCH, [facility] Primary Care Provider Candida RD, Dee Unavailable Paulino HORNER, Rafael Unavailable Vidal WELCH, [facility] Primary Care Provider Mannie Nelson MD Primary Care Provider Unallocatkira WELCH, [place] Provider Primary Care Provi vidhya Alex OLIVAS MD, Daniel B Primary Care Provider [phone] Mason Johnson MD Primary Care Provider Vidal WELCH, [facility] Primary Care Provider Mason Johnson MD Unavailable JOHNSON II, MASON B Primary Care Unavailable ABHYANKAR, JOHN Referring Unavailable JOHNSON II, MASON B Primary Care Unavailable Yordan FELIZ Referring Unavailable Yordan FELIZ Attending Unavailable JOHNSON II, MASON B Primary Care Unavailable ABHYANKAR, JOHN Referring Unavailable ABHYANKAR, JOHN Attending Unavailable JOHNSON II, MASON B Primary Care Unavailable ABHYANKAR, JOHN Referring Unavailable ABHYANKAR, JOHN Attending Unavailable JOHNSON II, MASON B Primary Care Unavailable Yordan FELIZ Attending Unavailable JOHNSON II, MASON B Primary Care Unavailable ABHYANKAR, JOHN Referring Unavailable JOHNSON II, MASON B Primary Care Unavailable Mechelle Boyer DO Attending Provider [phone] MASON JOHNSON Attending Unavailable BARRY STEVENS Attending Unavailable ALEX, MASON B Referring Unavailable JOHNSON, MASON B Attending Unavailable SERENE MORALES Attending Unavailable ALEX MASON B Attending Unavailable ALEX MASON B Attending Unavailable ALEX MASON B Attending Unavailable MASON JOHNSON B Attending Unavailable SERENE MORALES H Attending Unavailable JOHNSON, MASON B Attending Unavailable JR. ALONSO, MECHELLE Last Attending AMSON Perera Referring Unavailable JR. ALONSO, MECHELLE Last Referring Unavaila SERENE Jiang Attending Unavailable JR. ALONSO, MECHELLE Last Attending UnavailMASON Cazares Attending Unavailable SERENE MORALES H Attending Unavailable BARRY STEVENS Attending Unavailable SERENE MORALES Attending Unavailable SERENE MORALES Attending Unavailable Mechelle Boyer Jr Attending Unavailable Mechelle Boyer Jr Admitting Unavailable Vidal WELCH, Primary Care Provider Shaikh Drake MD Primary Care Provider [phone] Unallocated , Quiana Provider Primary Care Provi vidhya Allergies Allergy ClassificationReported Allergen(s)Allergy TypeDate of OnsetReaction(s) Facility (1 source)No Known Medication Allergies; Translations: [No Known Medication Allergies]Propensity to adverse reactions (disorder)[facility] (20 sources)HMG-CoA reductase inhibitorPropensity to adverse hbmwvgozn36-61-1204 [facility] [employer] Work Phone: Medications Current Medications MedicationDrug Class(es)DatesSig (Normalized)Sig (Original)aspirin 81 mg delayed release oral tablet (20 sources)Platelet Aggregation Inhibitor, Nonsteroidal Anti-inflammatory Drug Start: 84-70-7931eakn 1 tablet by mouth once dailyaspirin 81 [...] oral tablet (5 sources)Cephalosporin AntibacterialStart: 10-01-2022 End: 29-33-7681paad 1 tablet by mouth twice dailycefUROXime (CEFTIN) 500 mg tablet Take 1 tablet by mouth twice daily for 10 days. 20 tablet 0 10/01/2022 10/11/2022 ActiveComment on above:Take 1 tablet by mouth twice daily for 10 days.celecoxib 200 mg oral capsule (20 sources)Nonsteroidal Anti-inflammatory DrugStart: 10-12-2024 End: 71-81-1952vohb 1 capsule by mouth in the morningcelecoxib (CeleBREX) 200 MG capsule Indications: Osteoarthritis, unspecified osteoarthritis type, un specified site Take 1 capsule (200 mg) by mouth in the morning and 1 capsule (200 mg) before bedtime. 60 capsule 6 11/11/2024 06/09/2025 Activecephalexin 500 mg oral capsule (1 source)Cephalosporin AntibacterialStart: 46-74-2310craw 1 capsule by mouth every eight hourscholecalciferol 1.25 mg oral capsule (20 sources)Vitamin DStart: 02-27-5778azxa 1 capsule by mouth every week cholecalciferol, [...] mg oral capsule (20 sources)Provitamin D2 CompoundStart: 78-15-4636nsjx 1 capsule by mouth every weekergocalciferol 50,000 unit capsule (VITAMIN D2, DRISDOL) TAKE 1 CAPSULE BY MOUTH WEEKLY 07/05/2022 ActiveComment on above:TAKE 1 CAPSULE BY MOUTH WEEKLY fenofibrate 134 mg oral capsule (20 sources)Peroxisome Proliferator Receptor alpha AgonistStart: 04-07-2024 Fenofibrate Micronized Active MG PO April 07, 2024 12:00amStart: 03-02-2016 take 1 capsule by mouth once dailyfenofibrate micronized (Lofibra) 134 MG capsule Indications: Hyperlipidemia, unspecified hyperlipidemia type Take 1 capsule (134 mg) by mouth Daily 100 capsule 3 12/04/2024 ActiveComment on above: Take 134 mg by mouth once daily.iv contrast (will be provided with radiology test) (10 sources)Start: 11-04-2024 End: 89-27-8108cwudcn 1 dose intravenously once, then inject 1 [...] 1 each 11/04/2024 11/04/2024 ExpiredStart: 11-04-2024 End: 30-66-0181dkuncr 1 dose intravenously once, then inject 1 [...] guidelines link. 1 each 11/04/2024 11/04/2024 ActiveStart: 25-85-9855xf contrast (will be provided with radiology test) [...] link. 1 each 11/04/2024 ActiveStart: 05-06-2024 End: 35-19-8933jqfdia 1 dose intravenously once, then inject 1 [...] 1 Each 05/06/2024 05/06/2024 ExpiredStart: 05-06-2024 End: 64-70-9957sy contrast (will be provided with radiology test) [...] 1 Each 05/06/2024 05/07/2024 ExpiredStart: 10-23-2023 End: 52-97-5591vm contrast (will be provided with radiology test) [...] Each 0 10/23/2023 10/24/2023 ActiveStart: 10-23-2023 End: 74-60-2204mnxcwl 1 dose intravenously once, then inject 1 [...] Each 0 10/23/2023 10/23/2023 ExpiredStart: 03-20-2023 End: 23-78-7299tx contrast (will be provided with radiology test) [...] Each 0 03/20/2023 03/21/2023 ActiveStart: 02-06-2023 End: 24-17-7361bm contrast (will be provided with radiology test) [...] 0.05 mg/ml ophthalmic solution (20 sources)Prostaglandin AnalogStart: 78-75-3873cjuz 1 drop(s) into the eye(s) at bedtimelatanoprost (XALATAN) 0.005 % ophthalmic solution instill 1 (ONE) DROP IN BOTH EYES AT BEDTIME 05/01/2023 Activetake 1 drop(s) into the eye(s) once dailylatanoprost (Xalatan) 0.005 % ophthalmic solution Administer 1 drop into both eyes Daily ActiveComment on above:instill 1 (ONE) DROP IN BOTH EYES AT BEDTIMEmetFORMIN hydrochloride 500 mg oral tablet (20 sources)BiguanideStart: 06-12-2022 End: 00-03-7362iijj 1 tablet by mouth once dailymetFORMIN (Glucophage) 500 MG tablet Indications: Type 2 diabetes mellitus without complication, without long- term current use of insulin (HCC) Take 1 tablet (500 mg) by mouth Daily 100 tablet 3 12/04/2024 06/02/2025 ActiveStart: 79-23-4171szoo 2 tablets by mouth once daily in the morning, then take 1 tablet by mouth in the eveningmetFORMIN (GLUCOPHAGE) 500 mg tablet TAKE 2 TABLETS BY MOUTH EVERY MORNING and TAKE 1 TABLET BY MOUTH IN THE EVENING 0 06/12/2022 ActiveStart: 59-73-8506unvh 1 tablet by mouth in the eveningmetFORMIN (GLUCOPHAGE) 500 mg tablet Take 500 mg by mouth as directed. 1 AM/1 PM 0 06/12/2022 ActiveComment on above:TAKE 2 TABLETS BY MOUTH EVERY MORNING and TAKE 1 TABLET BY MOUTH IN THE EVENINGTake 500 mg by mouth as directed. 1 AM/1 PMTake 500 mg by mouth once daily.24 hr metoprolol succinate 25 mg extended release oral tablet (20 sources)beta-Adrenergic BlockerStart: 08-98-4422eiqi 1 tablet by mouth once dailymetoprolol succinate XL (Toprol-XL) 25 MG 24 hr tablet Indications: Primary hypertension Take 1 tablet (25 mg) by mouth Daily Do not crush or chew. 90 tablet 3 12/10/2024 ActiveStart: 24-62-2358qifw 1 tablet by mouth every twenty- four hoursStart: 18-94-5626Paqkqeiwxr Succinate Active MG PO April 07, 2024 12:00amStart: 06-12-2022 End: 60-65-1918bgaq 1 tablet by mouth once dailymetoprolol succinate XL (Toprol- XL) 25 MG 24 hr tablet Indications: Primary hypertension (CMS/HCC) TAKE 1 TABLET BY MOUTH DAILY at the same time each day 90 tablet 1 05/18/2024 ActiveStart: 74-52-4209czwn 1 tablet by mouth once dailyMetoprolol succinate 25 mg ER Tablet 1 tab, Oral, Daily, Refills(s) 0 Start Date: 04/18/20 Status: OrderedComment on above:Take 25 mg by mouth once daily.tiZANidine 4 mg oral tablet (16 sources)Central alpha-2 Adrenergic AgonistStart: 68-41-7132rdmx 1 tablet by mouth in the morningtiZANidine (Zanaflex) 4 MG tablet Indications: Torticollis Take 1 tablet (4 mg) by mouth in the morning and 1 tablet (4 mg) before bedtime. 60 tablet 3 04/21/2025 ActiveStart: 08-31-2024 End: 97-06-4313nfmr 1 tablet by mouth in the morningtiZANidine (Zanaflex) 4 MG tablet Indications: Torticollis Take 1 tablet (4 mg) by mouth in the morning and 1 tablet (4 mg) before bedtime. 60 tablet 3 08/31/2024 10/12/2024 Discontinued (Side effects)traMADol hydrochloride 50 mg oral tablet (13 sources)Opioid AgonistStart: 03-26-2025 End: 82-26-6998kyet 2 tablets by mouth every eight hours for paintraMADol (Ultram) 50 MG tablet Indications: Pseudogout involving multiple joints Take 2 tablets (100 mg) by mouth every 8 (eight) hours if needed for severe pain 40 tablet 1 03/26/2025 04/30/2025 Activetriamcinolone acetonide 1 mg/ml topical cream (1 source)CorticosteroidStart: 04-07-2024 Completed/Discontinued Medications MedicationDrug Class(es)DatesSig (Normalized)Sig (Original)atenolol 25 mg oral tablet (4 sources)beta-Adrenergic BlockerStart: 11-12-2012 End: 43-95-5420jzje 1 tablet by mouth once dailyATENOLOL 25 mg tablet Take 25 mg by mouth once daily. 0 11/12/2012 08/16/2022 Discontinued (Discontinued by another Health Care Provider)Comment on above:Take 25 mg by mouth once daily. ciprofloxacin 500 mg oral tablet (7 sources)Quinolone AntimicrobialStart: 10-19-2022 End: 65-32-2060pymi 1 tablet by mouth twice dailyciprofloxacin HCl (CIPRO) 500 mg tablet Take 1 tablet by mouth twice daily for 14 days. 28 tablet 11/02/2022 ExpiredComment on above:Take 1 tablet by mouth twice daily for 14 days.Magnesium (17 sources) End: 96-46-1991Xxjysbdft 400 MG capsule Take by mouth 05/19/2024 Discontinued (Therapy completed)Magnesium 400 MG capsule Take by mouth Active methylPREDNISolone (19 sources)CorticosteroidStart: 04-14-2025 End: 87-83-8167isbvjiWENTSWFnphtb (Medrol Dospak) 4 MG tablets Indications: Left hip pain Follow schedule on package instructions 21 tablet 04/14/2025 04/30/2025 DiscontinuedStart: 61-32-5530cvtyewDFASTROkkxhw (Medrol Dospak) 4 MG tablets Indications: Left hip pain Follow schedule on package instructions 21 tablet 04/14/2025 ActiveStart: 12-09-2024 End: 48-92-7980bryfypTQKIJUWbpeqh (Medrol Dospak) 4 MG tablets Indications: Inflammatory arthritis Follow scheduleon package instructions 21 tablet 12/09/2024 12/28/2024 Discontinued (Therapy completed)Start: 12-09-2024 End: 72-30-3633cpaxbxEDIZUXBwrvnf (Medrol Dospak) 4 MG tablets Indications: Inflammatory arthritis Follow scheduleon package instructions 21 tablet 12/09/2024 12/16/2024 Activeondansetron 8 mg oral tablet (20 sources)Serotonin-3 Receptor AntagonistStart: 08-21-2022 End: 94-76-3465uonx 1 tablet by mouth every eight hours as neededondansetron (ZOFRAN) 8 mg tablet Take 1 tablet by mouth every 8 hours as needed for nausea/vomiting. 90 tablet 1 08/21/2022 05/08/2023 Discontinued (Discontinued by Patient)Comment on above:Take 1 tablet by mouth every 8 hours as needed for nausea/vomiting.prochlorperazine 10 mg oral tablet (20 sources)PhenothiazineStart: 08-21-2022 End: 07-73-7756zyys 1 tablet by mouth every six hours as neededprochlorperazine (COMPAZINE) 10 mg tablet Take 1 tablet by mouth every 6 hours as needed. 100 tablet 1 08/21/2022 05/08/2023 Discontinued (Discontinued by Patient)Comment on above:Take 1 tablet by mouth every 6 hours as needed. Problems Active Problems Problem ClassificationProblemDateDocumented DateEpisodic/Chronic Administrative/social admission (4 sources)Patient encounter status; Translations: [Other specified counseling] 62-57-3991QcxgvgqhTamtcmpf of urinary tract (1 source)Personal history of urinary calculi; Translations: [PERSONAL HISTORY OF URINARY CALCULI]Onset: 58-62-9012JhdxjmazVtyxbq of colon (20 sources)Malignant tumor of colon; Translations: [Malignant neoplasm of colon, unspecified]Onset: 11-19-2012 Resolved: 234090-72-4913JqnofsgSkdocb of head and neck (20 sources)Malignant neoplasm of base of tongue; Translations: [Malignant tumor of tongue]Onset: 91-89-4398KjyeddkHglydny kidney disease (20 sources)Chronic kidney disease stage 3; Translations: [Stage 3 chronic kidney disease, unspecified whether stage 3a or 3b CKD (HCC)]Onset: 2022 ChronicChronic kidney disease (1 source)Chronic kidney disease; Translations: [Stage 3 chronic kidney disease, unspecified whether stage 3aor 3b CKD (HCC)]Onset: 66-92-7154Zykqqdin atherosclerosis and other heart disease (20 sources)History of myocardial infarction; Translations: [Atherosclerotic heart disease of [place] coronary artery without angina pectoris]Onset: 395667-54-7365LemlhtnVdgippef mellitus with complications (20 sources)Type 2 diabetes mellitus well controlled; Translations: [Type 2 diabetes mellitus with diabetic chronic kidney disease]Onset: 07-11-2023 71-24-2441PprofxvVsdfowro of white blood cells (20 sources)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; Translations: [Agranulocytosis secondary to cancer chemotherapy]Onset: 10-19-2022 Resolved: 01-56-5742BofnzuySasxbhdgd of lipid metabolism (20 sources)Hypercholesterolemia; Translations: [Pure hypercholesterolemia, unspecified]Onset: 08-03-2022 Resolved: 054452-24-7021YkytlprGhtajbfkqu disorders (20 sources)Gastroesophageal reflux disease; Translations: [Gastro-esophageal reflux disease without esophagitis]Onset: 627353-73-2063HlcnhsoGjryjtxht hypertension (20 sources)Hypertensive disorder; Translations: [Essential (primary) hypertension]Onset: 802306-26-8034VvubvcsSbamvpthoucuo symptoms and ill- defined conditions (2 sources)Genuine stress incontinence; Translations: [Stress incontinence (female) (male)]65-69-4722IlteepmOrjs and other crystal arthropathies (20 sources)Pyrophosphate arthritis; 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, multiple sites]Onset: 008859-33-8533LssiynrEdsqxphyd (20 sources)Nonalcoholic steatohepatitis; Translations: [Nonalcoholic steatohepatitis (OJEDA)]Onset: 948561-08-3128DkcbrenQrdumvljkcagn and screening for infectious disease (1 source)Vaccination needed; Translations: [Encounter for immunization] 66-34-2814WovkmgjkJzdlkpfvtlymtj (20 sources)Osteoarthritis; Translations: [Unspecified osteoarthritis, unspecified site]Onset: 282207-87-2278EmcjpkcGmqck aftercare (1 source)watermaster (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 of anticoagulants; Translations: [INFORMATION ANALYST CURRNT USE ANTICOAGULANTS]Onset: 16-70-4877WlcgwtrtXiase aftercare (1 source)shelter (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 of oral hypoglycemic drugs; Translations: [DETENTION USE ORAL HYPOGLYCEMIC DX]Onset: 20-53-0610JcnywmszRuhmi aftercare (1 source)watermaster (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 of aspirin; Translations: [INFORMATION ANALYST CURRENT USE OF ASPIRIN]Onset: 36-01-3840NtkttrlpVyqml and unspecified benign neoplasm (1 source)Personal history of colonic polyps; Translations: [PERSONAL HISTORY OF COLONIC POLYPS]Onset: 15-98-9383VxzetlcdMgnnz and unspecified benign neoplasm (1 source)Benign neoplasm of ascending colon; Translations: [BENIGN NEOPLASM OF ASCENDING COLON]Onset: 34-78-3055OfrhlguaQdxha and unspecified benign neoplasm (1 source)Benign neoplasm of descending colon; Translations: [BENIGN NEOPLASM OF DESCENDING COLON]Onset: 92-79-9498YkmlghhxUiucy gastrointestinal disorders (1 source)Dysphagia, unspecified; Translations: [DYSPHAGIA UNSPECIFIED]Onset: 46-78-1756ByyrmczcBaapf liver diseases (1 source)Fatty (change of) liver, not elsewhere classified; Translations: [FATTY CHANGE LIVER NEC]Onset: 51-02-4399YkmstdkDkvkj lower respiratory disease (3 sources)Lung mass; Translations: [Other nonspecific abnormal finding of lung field]91-77-2866IjjrlsroXaeqh lower respiratory disease (9 sources)Multiple nodules of lung; Translations: [Other nonspecific abnormal finding of lung field]04-78-5747FbsqqsgsBhctc lower respiratory disease (1 source)Nodule of lung; Translations: [Solitary pulmonary nodule]02-11-2023 EpisodicOther non-traumatic joint disorders (12 sources)Hip pain; Translations: [Pain in left hip]04-80-5706OrshankiEketg non-traumatic joint disorders (4 sources)Effusion of joint of left knee; Translations: [Effusion, left knee] 01-01-3942AsxbaoryGqyfb non-traumatic joint disorders (4 sources)Pain in left knee; Translations: [Pain in joint, lower leg]12-09-2024 EpisodicOther nutritional; endocrine; and metabolic disorders (2 sources)Overweight in adulthood with body mass index of 25 or more but less than 5132-03-1930YqpfwexxMbbnu screening for suspected conditions (not mental disorders or infectious disease) (1 source)Abnormal findings on diagnostic imaging of other specified body structures; Translations: [ABNORML FIND DX IMG OTH BODY STRUC]Onset: 08-01-2022 ChronicOther screening for suspected conditions (not mental disorders or infectious disease) (4 sources)Electrocardiogram abnormal; Translations: [Abnormal electrocardiogram [ECG] [EKG]]95-34-9502EhxfpmcjJinpt skin disorders (4 sources)Seborrheic keratosis; Translations: [Other seborrheic keratosis] 72-01-3097KwyubsrlSsfbq skin disorders (8 sources)Actinic keratosis; Translations: [Actinic keratosis]05-26-2024 EpisodicOther skin disorders (2 sources)Inflamed seborrheic keratosis; Translations: [Inflamed seborrheic keratosis]85-49-2739GakkezyzFbpcg upper respiratory disease (1 source)Unspecified voice and resonance disorder; Translations: [UNS VOICE AND RESONANCE DISORDER]Onset: 95-81-5800EoijbsgkNkllxltovg and visceral atherosclerosis (2 sources)Arteriosclerotic vascular rwqumbq52-93-4596LoieammZeptqrgizn arthritis and related disease (2 sources)Rheumatoid arthritis; Translations: [Rheumatoid arthritis, unspecified]40-16-8478SkxxblaHwlnefuos malignancies (20 sources)Secondary malignant neoplasm of lymph nodes of neck; Translations: [Secondary and unspecified malignant neoplasm of lymph nodes of head, face and neck]Onset: 919070-41-5427JamykalIbanadrbn malignancies (2 sources)Metastasis to head and neck lymph node; Translations: [Secondary and unspecified malignant neoplasmof lymph nodes of head, face and neck]08-31-2024 ChronicSpondylosis; intervertebral disc disorders; other back problems (20 sources)Cervical spondylosis without myelopathy; Translations: [Spondylosis without myelopathy or radiculopathy, cervical region]Onset: ChronicSpondylosis; intervertebral disc disorders; other back problems (10 sources)Torticollis; Translations: [Torticollis]31-59-6439XvwaifptOhlirxl disorders (7 sources)Iodine-deficiency related diffuse (endemic) goiter; Translations: [Acquired hypothyroidism]Onset: 16-86-9370ErwtmaeKezvwvqrmjgs (1 source)CONTACT W/AND (SUSP) EXPOS COVID-19; Translations: [CONTACT W/AND (SUSP) EXPOS COVID-19]Onset: 08-01-2022 Past or Other Problems Problem ClassificationProblemDateDocumented DateEpisodic/ChronicCancer of colon (20 sources)History of malignant neoplasm of colon; Translations: [Personal history of other malignant neoplasmof large intestine]Onset: 06-13-2022 Resolved: 34-70-2529SzwhxxqqDwjeptih mellitus without complication (20 sources)Type 2 diabetes mellitus; Translations: [Type 2 diabetes mellitus without complications]Onset: 02-27-2022 Resolved: 899317-11-8014KrkuqbrJyqln disorders and dislocations; trauma-related (20 sources)Dislocation of acromioclavicular joint; Translations: [Unspecified dislocation of right acromioclavicular joint, initial encounter]Onset: 876285-67-7046ApeklddfTfmi disorders (20 sources)Mood disordersOnset: 902401-63-8754Nnraoqgzbnf deficiencies (20 sources)Vitamin D deficiency; Translations: [Vitamin D deficiency, unspecified]Onset: 01-15-2023 Resolved: 017044-70-9316KtuhqxkAwqfa and unspecified benign neoplasm (20 sources)History of polyp of colon; Translations: [Personal history of colonic polyps]Onset: 06-13-2022 Resolved: 23-61-8983BunyhtfeVwtof circulatory disease (20 sources)Raynaud's disease; Translations: [Raynaud's syndrome without gangrene]Onset: 01-15-2023 Resolved: 236445-78-2471MazbmyeYgeql connective tissue disease (20 sources)Diastasis recti; Translations: [Separation of muscle (nontraumatic), other site]Onset: 01-15-2023 Resolved: 284298-95-4304LxurmqtsHwsen connective tissue disease (20 sources)Muscle spasm of cervical muscle of neck; Translations: [Other muscle spasm]Onset: 980785-99-6931DftoidvdEtqnv lower respiratory disease (1 source)Other nonspecific abnormal finding of lung field; Translations: [Lung nodules]Onset: 76-23-6122UhitwlsqQewkf male genital disorders (20 sources)Disorder of prostate; Translations: [Disorder of prostate, unspecified]Onset: 01-15-2023 Resolved: 959762-59-8272KietlxarXydry male genital disorders (1 source)Disorder of prostate, unspecified; Translations: [DISORDER OF PROSTATE UNSPECIFIED]Onset: 99-03-4625TjgivnebRxphd non-epithelial cancer of skin (20 sources)Basal cell carcinoma of face; Translations: [Basal cell carcinoma of skin of unspecified parts of face]Onset: 12-15-2022 Resolved: 730399-32-9949LeciswsjFfleu non-traumatic joint disorders (20 sources)Pain in right shoulder; Translations: [Pain in joint, shoulder region]Onset: 12-15-2022 Resolved: 996319-71-2581OrwtwmupHzdku nutritional; endocrine; and metabolic disorders (20 sources)Disorder of carbohydrate metabolism; 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, unspecified]Onset: 01-15-2023 Resolved: 354049-92-7411SqgfnhfUieba nutritional; endocrine; and metabolic disorders (20 sources)Overweight; Translations: [Overweight]Onset: 12-15-2022 Resolved: 157364-70-8527MshgrwrcLslng skin disorders (20 sources)Lesion of face; Translations: [Disorder of the skin and subcutaneous tissue, unspecified]Onset: 497480-16-7076RpsfmaecMidegcb disorders (2 sources)Disorder of thyroid gland; Translations: [Other specified disorders of thyroid]Onset: 165782-74-3745Ytntcgsf Results Test NameValueInterpretationReference RangeFacilityCBC W Auto Differential panel (Bld)on 47-03-7388Ehrvtkjrm (Bld) [#/Vol]0.05 10*3/uLNormal<0.11CMartin Memorial Hospital on above:Order Comment: Specimen Type: BLOOD SPECIMENOrdering Facility: [facility] Address:[address] [place] [address]Kzfxufykt By: #### [id number] ####[facility] CENTERJERMAINE [facility] LABCLIA [id number] [place], [place] [address]Jfgntlgwz/100 WBC (Bld)0.9 % NormalCleveland Clinic Mercy Hospital on above:Order Comment: Specimen Type: BLOOD SPECIMENOrdering Facility: [facility] Address:[address] [place], [place] [address]Performed By: #### [id number] ####[facility] LABIA [id number] [place] [address] Differential cell count method Nom (Bld)AutoNormalClevelWake Forest [facility] Comment on above:Order Comment: Specimen Type: BLOOD SPECIMENOrdering Facility: [facility] Address:[address] [place] [address] Performed By: #### [id number] ####[facility] LABCLIA [id number] [place], [place] [address]Xvfqjnbbaki (Bld) [#/Vol]0.08 10*3/uLNormal<0.46A[facility] GlenbeighCompaul [facility] on above:Order Comment: Specimen Type: BLOOD SPECIMENOrdering Facility: [facility] Address:[address] [place], [place] [address]Performed By: #### [id number] ####[facility] LABIA [id number] [place], [place] [address]Ftmnvjaxonr/100 WBC (Bld)1.4 %NormalAcmc Healthcare System GlenbeighComment on above:Order Comment: Specimen Type: BLOOD SPECIMENOrdering Facility: [facility] Address:[address] [address] [place], [place] [address]Performed By: #### 28413-2 ####[facility] LABIA [id number] [place], [place] [address]Dzzmrylnlra distribution width (RBC) [Ratio]14.5 %Msfdlp77.5-15.0[facility] on above: Order Comment: Specimen Type: BLOOD SPECIMENOrdering Facility: [facility] Address:[address] [place], [place] [address]Performed By: #### 60323- 8 ####[facility] LABIA [id number] [place], [place] [address]Udtpkhbtjj (Bld) [Volume fraction]40.3 %Pxhsdi18.0-51.0 [facility] on above:Order Comment: Specimen Type: BLOOD SPECIMENOrdering Facility: [facility] Address:[address] [place], [place] [address]Performed By: #### 63615-2 ####[facility] LABIA [id number] [place], [place] [address]Nnswiyrzey (Bld) [Mass/Vol]13.2 g/gBUbgaoo40.0-17.0[facility] on above: Order Comment: Specimen Type: BLOOD SPECIMENOrdering Facility: [facility] Address:[address] [place], [place] [address]Performed By: #### 94419- 8 ####[facility] LABIA [id number] [place], [place] [address]Wnepokoj granulocytes (Bld) [#/Vol]0.05 10*3/uLNormal <0.10[facility] on above:Order Comment: Specimen Type: BLOOD SPECIMENOrdering Facility: [facility] Address:[address] [place], [place] [address]Performed By: #### 85308-0 ####[facility] LABIA [id number] [place], [place] [address]Mfugrusq granulocytes/100 WBC (Bld)0.9 %NormalCleveland Clinic Mercy Hospital on above: Order Comment: Specimen Type: BLOOD SPECIMENOrdering Facility: [facility] Address:[address] [place], [place] [address]Performed By: #### 22441- 8 ####[facility] LABIA [id number] [place], [place] [address]Hxhwbdbucmh (Bld) [#/Vol]0.58 10*3/uLLow1.00-4.00 [facility] on above:Order Comment: Specimen Type: BLOOD SPECIMENOrdering Facility: [facility] Address:[address] [place], [place] [address]Performed By: #### 15762-1 ####[facility] LABIA [id number] [place], [place] [address]Daxafssqcgy/100 WBC (Bld)9.9 %NormalCleveland Clinic Mercy Hospital on above:Order Comment: Specimen Type: BLOOD SPECIMENOrdering Facility: [facility] Address:[address] [place], [place] [address]Performed By: #### 23466-1 ####[facility] LABCLIA [id number] [place], [place] [address]WPQ (RBC) [Entitic mass]29.3 ziZlgefl63.0-34.0[facility] on above:Order Comment: Specimen Type: BLOOD SPECIMENOrdering Facility: [facility] Address:[address] [place], [place] [address]Performed By: #### 26678-3 ####[facility] LABCLIA [id number] [place], [place] [address]GPNS (RBC) [Mass/Vol]32.8 g/eGWkkjbf70.5-36.0[facility] on above: Order Comment: Specimen Type: BLOOD SPECIMENOrdering Facility: [facility] Address:[address] [place], [place] [address]Performed By: #### 57782- 8 ####[facility] LABCLIA [id number] [place], [place] [address]CER (RBC) [Entitic vol]89.6 zKTtfioa23.0-100.0[facility] on above:Order Comment: Specimen Type: BLOOD SPECIMENOrdering Facility: [facility] Address:[address] [place], [place] [address]Performed By: #### 90617-6 ####[facility] LABIA [id number] [place], [place] [address]Lnvnobpun (Bld) [#/Vol]0.46 10*3/uLNormal<0.87[facility] on above:Order Comment: Specimen Type: BLOOD SPECIMENOrdering Facility: [facility] Address:[address] [place], [place] [address]Performed By: #### 97254- 8 ####[facility] LABCLIA [id number] [place], [place] [address]Qqqgzpiuj/100 WBC (Bld)7.8 %NormalCleveland Clinic Mercy Hospital on above:Order Comment: Specimen Type: BLOOD SPECIMENOrdering Facility: [facility] Address:[address] [place], [place] [address]Performed By: #### 57125-1 ####[facility] LABCLIA [id number] [place], [place] [address]Hrpgpuvgmjx (Bld) [#/Vol]4.66 10*3/uLNormal1.45-7.50[facility] on above:Order Comment: Specimen Type: BLOOD SPECIMENOrdering Facility: [facility] Address:[address] [place], [place] [address]Performed By: #### 53349-5 ####[facility] LABCLIA [id number] [place], [place] [address]Iirhgtiypne/100 WBC (Bld)79.1 %NormalCleveland Clinic Mercy Hospital on above:Order Comment: Specimen Type: BLOOD SPECIMENOrdering Facility: [facility] Address:[address] [place], [place] [address]Performed By: #### 58376-5 ####[facility] LABIA [id number] [place], [place] [address]Jqoknucmc RBC (Bld) [#/Vol] 10*3/uLNormal<0.01[facility] on above:Order Comment: Specimen Type: BLOOD SPECIMENOrdering Facility: [facility] Address:[address] [place], [place] [address]Performed By: #### 33526-0 ####[facility] LABCLIA [id number] [place], [place] [address]Ylenbqbdl RBC/100 WBC (Bld) [Ratio]0.0 /100 WBCNormal [facility] on above:Order Comment: Specimen Type: BLOOD SPECIMENOrdering Facility: [facility] Address:[address] [place], [place] [address]Performed By: #### 32211-1 ####[facility] LABCLIA [id number] [place], [place] [address]Pofjvoxc mean volume (Bld) [Entitic vol]9.8 fLNormal9.0-12.7CMartin Memorial Hospital on above:Order Comment: Specimen Type: BLOOD SPECIMENOrdering Facility: [facility] Address:[address] [place] [address] Performed By: #### 34250-7 ####[facility] LABCLIA [id number] [place], [place] [address]Wrxuyxssp (Bld) [#/Vol]255 10*3/pGRnbmoj900-707OhxnudtoaCleveland Clinic Mercy Hospital on above:Order Comment: Specimen Type: BLOOD SPECIMENOrdering Facility: [facility] Address:[address] [place], [place] [address]Performed By: #### 71766-4 ####[facility] LABCLIA [id number] [place], [place] [address]ANZ (Bld) [#/Vol]4.50 10*6/uLNormal4.20-6.00[facility] on above:Order Comment: Specimen Type: BLOOD SPECIMENOrdering Facility: [facility] Address:[address] [place], [place] [address]Performed By: #### 81959-4 ####[facility] LABCLIA [id number] [place], [place] [address]QMP (Bld) [#/Vol]5.88 10*3/uLNormal3.70-11.00[facility] on above: Order Comment: Specimen Type: BLOOD SPECIMENOrdering Facility: [facility] Address:[address] [place], [place] [address]Dsgwoxpzu By: #### 50676- 8 ####[facility] LABCLIA [id number] [place], [place] [address]OWB APTTon 87-45-6156lEUX Coag (Bld) [Time]29.8 sNOMS HealthcareCCF CMP (CMP) (FOR REMOTE [facility] USE)on 00-21-2194Adtblcf [Mass/Vol]3.8 g/dL3.4 - 5.0 g/dLNOMS HealthcareALBUMIN GLOBULIN RATIO1.0NOMS HealthcareALP [Catalytic activity/Vol]104 U/L46 - 116 U/LNOMS HealthcareALT [Catalytic activity/Vol]29 U/L16 - 63 U/LNOMS HealthcareAnion gap [Moles/Vol]13.9 mmol/L NOMS HealthcareAST [Catalytic activity/Vol]17 U/L15 - 37 U/LNOMS Healthcare Bilirubin [Mass/Vol]0.6 mg/dL0.2 - 1.0 mg/dLNOMS HealthcareCalcium [Mass/Vol]9.4 mg/dL8.5 - 10.1 mg/dLNOMS HealthcareChloride [Moles/Vol]100 mmol/L98 - 107 mmol/LNOMS HealthcareCO2 [Moles/Vol]29.2 mmol/L21.0 - 32.0 mmol/LNOMS Healthcare Creatinine [Mass/Vol]1.18 mg/dL0.70 - 1.30 mg/dLNOMS HealthcareGFR/1.73 sq M.predicted CKD-EPI (S/P/Bld) [Vol rate/Area]>60>=60 mL/min/1.73m 2NOMS HealthcareGlobulin (S) [Mass/Vol]3.9 g/dLNOMS HealthcareGlucose [Mass/Vol]222 mg/oGIwnr77 - 106 mg/dLNOMS HealthcareInterpretation and review of laboratory resultsAbnormalNOMS HealthcarePotassium [Moles/Vol]4.1 mmol/L3.5 - 5.1 mmol/L NOMS HealthcareProtein [Mass/Vol]7.7 g/dL6.4 - 8.2 g/dLNOMS HealthcareSodium [Moles/Vol]139 mmol/L136 - 145 mmol/LNOMS HealthcareTBH EGFR-NON AF OZPTQRTP23 Low>=60 mL/min/1.73m 2NOMS HealthcareUrea nitrogen [Mass/Vol]16.0 mg/dL7.0 - 18.0 mg/dLNOMS HealthcareUrea nitrogen/Creatinine [Mass ratio]13.6 mg/mgNOMS HealthcareCLINISYNCNOMS HealthcareCT CHEST W IVCONon 75-98-4989YK CHEST W IVCON* * *Final Report* * * DATE OF EXAM: Apr 29 2025 10:27AM [facility] 0539 - CT CHEST W [...] otherwise unremarkable. Localizer images: No additional findings. IMPRESSION: 1. Stable CT of the chest. [...] any questions regarding this interpretation, please call [phone]. If you are unable to reach us at the number above, please feel free to contact [facility] eRadiology at [phone]. [id number] Memorial Hospital NECK SOFT TISSUE W IVCONon 99-36-8540DN NECK SOFT TISSUE W IVCON* * *Final Report* * * DATE OF EXAM: Apr 29 2025 10:27AM [facility] 0013 - CT NECK SOFT [...] under a separate accession. Other: Not applicable. IMPRESSION: * Stable posttreatment changes as detailed. [...] any questions regarding this interpretation, please call [phone]. If you are unable to reach us at the number above, please feel free to contact [facility] eRadiology at [phone]. [id number] Healthcare System GlenbeighComprehensive metabolic 2000 panelon 94-62-3067Afumdjd [Mass/Vol]4.2 g/dLNormal3.9-4.9CPremier Health Miami Valley Hospital SouthComment on above:Order Comment: Specimen Type: BLOOD SPECIMENOrdering Facility: [facility] Address:[address] [place], [place] [address]Performed By: #### 41064-0 ####[facility] LABCLIA [id number] [place] [address]NXP [Catalytic activity/Vol]95 U/OUgmxis08-214KlrqtnbfrCleveland Clinic [facility] Hospital on above:Order Comment: Specimen Type: BLOOD SPECIMENOrdering Facility: [facility] Address:[address] [place], [place] [address]Performed By: #### 25145-7 ####[facility] LABCLIA [id number] [place] [address]QUC [Catalytic activity/Vol]17 U/MUyxqpm67-19UhjttfibsC[facility] Clinic [facility] Hospital on above:Order Comment: Specimen Type: BLOOD SPECIMENOrdering Facility: [facility] Address:[address] [place], [place] [address]Performed By: #### 81004-2 ####[facility] LABCLIA [id number] [place], [place] [address]Irttd gap [Moles/Vol]13 mmol/LNormal8-15[facility] on above:Order Comment: Specimen Type: BLOOD SPECIMENOrdering Facility: [facility] Address:[address] [place], [place] [address]Performed By: #### 66094- 8 ####[facility] LABCLIA [id number] [place] [address]IVN [Catalytic activity/Vol]15 U/NLypvkz13-07CeqnwwqsyC[facility] Clinic [facility] Hospital on above:Order Comment: Specimen Type: BLOOD SPECIMENOrdering Facility: [facility] Address:[address] [place], [place] [address]Performed By: #### 37824-0 ####[facility] LABIA [id number] [place] [facility] [place], [place] [address]Twknaseeb [Mass/Vol]0.5 mg/dLNormal0.2-1.3CMartin Memorial Hospital on above:Order Comment: Specimen Type: BLOOD SPECIMENOrdering Facility: [facility] Address:[address] [place], [place] [address]Performed By: #### 31253- 8 ####[facility] LABCLIA [id number] [facility] [place], [place] [address]Kphxvdc [Mass/Vol]10.2 mg/dLNormal8.5-10.2CMartin Memorial Hospital on above:Order Comment: Specimen Type: BLOOD SPECIMENOrdering Facility: [facility] Address:[address] [place], [place] [address]Performed By: #### 52516-9 ####[facility] LABCLIA [id number] [place], [place] [address]Sqzdwbwq [Moles/Vol]103 mmol/SZrrbhj53-401XojhakwchC[facility] Clinic [facility] Hospital on above: Order Comment: Specimen Type: BLOOD SPECIMENOrdering Facility: [facility] Address:[address] [place], [place] [address]Performed By: #### 79562- 8 ####[facility] LABCLIA [id number] [place], [place] [address]DF5 [Moles/Vol]26 mmol/SObszwt38-80HzjfpevwdC[facility] Clinic [facility] on above:Order Comment: Specimen Type: BLOOD SPECIMENOrdering Facility: [facility] Address:[address] [place], [place] [address]Performed By: #### 88606-5 ####[facility] LABCLIA [id number] [place], [place] [address]Fxqczsrkcb [Mass/Vol]1.07 mg/dL Normal0.73-1.22[facility] on above:Order Comment: Specimen Type: BLOOD SPECIMENOrdering Facility: [facility] Address:[address] [place], [place] [address]Performed By: #### 23824-1 ####[facility] LABCLIA [id number] [facility] [place], [place] [address]vKRYvi SerPlBld CKD-EPI 446413 mL/min/1.73m???Normal>=60 [facility] on above:Order Comment: Specimen Type: BLOOD SPECIMENOrdering Facility: [facility] Address:[address] [place], [place] [address]Wcfttv Comment: Estimated Glomerular Filtration Rate (eGFR) is calculated using the 2020 CKD-EPI creatinine equation. This equation utilizes serum creatinine, sex, and age as parameters. The creatinine assay has traceable calibration to isotope dilution-mass spectrometry. Refer to KDIGO guidelines for clinical interpretation. In patients with unstable renal function, e.g. those with acute kidney injury, the eGFR may not accurately reflect actual GFR.Performed By: #### 51599-7 ####[facility] LABCLIA [id number] [place], [place] [address]Ugszjnm [Mass/Vol]198 mg/hFEpvf23-78PertdzhplCleveland Clinic [facility] Hospital on above:Order Comment: Specimen Type: BLOOD SPECIMENOrdering Facility: [facility] Address:[address] [place] [address]Plvidn Comment: The [place] Diabetes Association (ADA) provides guidance for cutoff [...] Medical Care in Diabetes 2016, [place] Diabetes Association. Diabetes Care. 2016.39(Suppl 1).Performed By: #### 13408-5 ####[facility] LABCLIA [id number] [place], [place] [address]Altzdnfxh [Moles/Vol]4.5 mmol/LNormal3.7-5.1CMartin Memorial Hospital on above:Order Comment: Specimen Type: BLOOD SPECIMENOrdering Facility: [facility] Address:[address] [place], [place] [address]Oeqxtyibn By: #### 60021-1 ####[facility] LABCLIA [id number] [place], [place] [address]Tbafwls [Mass/Vol]7.1 g/dLNormal6.3-8.0[facility] on above:Order Comment: Specimen Type: BLOOD SPECIMENOrdering Facility: [facility] Address:[address] [place], [place] [address]Performed By: #### 58161- 8 ####[facility] LABCLIA [id number] [place], [place] [address]Lbxmxq [Moles/Vol]142 mmol/CSwnwrb332-393QmxzhxexfCleveland Clinic [facility] Hospital on above:Order Comment: Specimen Type: BLOOD SPECIMENOrdering Facility: [facility] Address:[address] [place], [place] [address]Performed By: #### 26559-7 ####[facility] LABCLIA [id number] [place], [place] [address]Kddt nitrogen [Mass/Vol]17 mg/dLNormal9-24[facility] on above:Order Comment: Specimen Type: BLOOD SPECIMENOrdering Facility: [facility] Address:[address] [place], [place] [address]Performed By: #### 64080-4 ####[facility] LABCLIA [id number] [place], [place] [address]XQA 12-LEADon 41-74-0223[place] [id number] Electrocardiograph Report Signed Patient: MANISH ROOT MR#: [id number] : 1945 Acct:[id number] Age/Sex: 79 / M ADM Date: 04/29/25 Loc: LAB Attending Dr: Mechelle Boyer D.O. Ordering Physician: Mechelle Boyer D.O. 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 Measurements Intervals [place] Rate: 84 P: WI: QRS: -10 QRSD: 114 T: 54 QT: [...] SCHMIDT M.D. Dictated By: MECHELLE SCHMIDT Signed By: 04/29/25191904/29/251919 DD/ 1239 TD/TT: Legal Nurse Consultant:TBHRadiology, Radiologist, MD - 04/29/2025 [place] [address] Electrocardiograph Report Signed Patient: MANISH ROOT MR#: [id number] : 1945 Acct:[id number] Age/Sex: 79 / M ADM Date: 04/29/25 Loc: LAB Attending Dr: Mechelle Boyer D.O. Ordering Physician: Mechelle Boyer D.O. 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 Measurements Intervals [place] Rate: 84 P: [place]: QRS: -10 QRSD: 114 T: 54 QT: [...] SCHMIDT M.D. Dictated By: MECHELLE SCHMIDT Signed By: 04/29/25191904/29/251919 DD/ 1239 TD/TT: Legal Nurse Consultant: [facility]OMS HealthcareRadiology Study observation (narrative)NOMS HealthcareECG 12-LEAD Ordered By: Radiologist Radiology on 10-95-8470LD[facility] Work Phone: no Panel Informationon 26-03-4966AXENPTLDJTXIV HealthcareSRMCOH PROTHROMBIN TIME INR W/O COUMon 05-91-1213CA Coag (PPP) [Time] 11.3 sNOMS HealthcareTBH INR1.07[facility] HealthcareComment on above:DESIRED INR: 2.0-3.0 CONDITIONS NOT LISTED BELOW 2.5-3.5 FOR PROSTHETIC HEART VALVE REPLACEMENT 2.5-3.5 RECURRENT THROMBOSIS TSH SerPl-aCncon 43-73-5643BZL Qn2.760 m[IU]/LNormal0.270-4.200A[facility] Healthcare System GlenbeighComment on above:Order Comment: Specimen Type: BLOOD SPECIMENOrdering Facility: [facility] Address:[address] [place], [place] [address]Performed By: #### 3016-3 ####[facility] LABCLIA [id number] [place] [address] [place] OF AMERICAUrine Cultureon 08-00-9989Msmshgwx identified Cx Nom (U)No Growth 2 Days PERFORMED BY: [address] [place] [address] PATHOLOGIST MULTIPLE GAMES DEALER INESSA AREVALO M.D.NormalThe [facility] Physician GroupComment on above: Performed By: #### CUU #### [facility] [address] [place] [address] USAXR Hip - left Single viewon 27-28-1794Yyn[address] [address] XRay Report Signed Patient: MANISH ROOT MR#: [id number] : 1945 Acct:[id number] Age/Sex: 79 / M ADM Date: 04/29/25 Loc: LAB Attending Dr: Mechelle Boyer D.O. Ordering Physician: Mechelle Boyer D.O. Date of Service: 04/29/25 Procedure(s): XR hip LT 1V w/ pelvis Accession Number(s): [id number] cc: MASON JOHNSON ; Mechelle Boyer D.O. The [address] [address] Patient Name: MANISH ROOT MRN: [id number] date: 1945 Sex: M Assigned Patient Location: LAB Current Patient Location: LAB Accession/Order Number: [id number] Exam Date: 04/29/2025 12:41 Report Date: 04/29/2025 18:23 At the request of: MECHELLE BOYER DO Procedure: XR hip LT 1V w/ pelvis Single view pelvis and single view left hip INDICATION: Primary osteoarthritis the left hip COMPARISON: MRI left hip 03/12/2025 FINDINGS: Moderate degenerative changes right hip and moderate to severe degenerative changes left hip with joint space narrowing, osteophytosis and subchondral cyst formation. Enthesopathy involving the trochanteric region noted. Degenerative changes both sacral joints. No diastases noted. XR/XR hip LT 1V w/ pelvis IMPRESSION: Moderate severe degenerative changes left hip. Negative acute osseous abnormalities. Impression dictated by: Hernandez Rosales M.D. 04/29/2025 6:23 PM Dictation Location: [place] [address] Electronically authenticated by: [id number] Y Date: 04/29/2025 18:23 Dictated By: Hernandez Rosales M.D. Signed By: 04/29/251824 DD/ 22 TD/TT: Legal Nurse Consultant:TBHRadiology, Radiologist, - 04/30/2025 The [place] [id number] XRay Report Signed Patient: MANISH ROOT MR#: [id number] : 1945 Acct:[id number] Age/Sex: 79 / M ADM Date: 04/29/25 Loc: LAB Attending Dr: Mechelle Boyer D.O. Ordering Physician: Mechelle Boyer D.O. Date of Service: 04/29/25 Procedure(s): XR hip LT 1V w/ pelvis Accession Number(s): [id number] cc: MASON JOHNSON ; Mechelle Boyer D.O. [address] [address] Patient Name: MANISH ROOT MRN: [id number] date: 1945 Sex: M Assigned Patient Location: LAB Current Patient Location: LAB Accession/Order Number: [id number] Exam Date: 04/29/2025 12:41 Report Date: 04/29/2025 18:23 At the request of: MECHELLE BOYER DO Procedure: XR hip LT 1V w/ pelvis Single view pelvis and single view left hip INDICATION: Primary osteoarthritis the left hip COMPARISON: MRI left hip 03/12/2025 FINDINGS: Moderate degenerative changes right hip and moderate to severe degenerative changes left hip with joint space narrowing, osteophytosis and subchondral cyst formation. Enthesopathy involving the trochanteric region noted. Degenerative changes both sacral joints. No diastases noted. XR/XR hip LT 1V w/ pelvis IMPRESSION: Moderate severe degenerative changes left hip. Negative acute osseous abnormalities. Impression dictated by: Heranndez Rosales M.D. 04/29/2025 6:23 PM Dictation Location: [place] [address] Electronically authenticated by: [id number] Y Date: 04/29/2025 18:23 Dictated By: Hernandez Rosales M.D. Signed By: 04/29/251824 DD/ 22 TD/TT: Legal Nurse Consultant: [facility] HealthcareRadiology Study observation (narrative)NOMS HealthcareXR Hip - left Single viewOrdered By: Radiologist Radiology on 22-97-1843[facility] Work Phone: XR Hip - left 3 Viewson 47-62-3469Sjudfsi Result: Multiple views of left hip showed [...] Moderate to severe degenerative joint disease, left hipNOSaint Joseph Hospital West HealthcareRadiology Study observation (narrative)NOMS HealthcareALBUMIN, RANDOM URINE W/CREATININEon 03-27-2025 ALBUMIN, URINE0.8 mg/dLNormalSee Note:Quest DiagnosticsComment on above:Result Comment: Reference Range: Reference Range Not establishedPerformed By: #### 6517, 7600, 76737 #### [facility] [address], [address] [place] [address] Sawmill Tally Clerk: Maged Olson MDALBUMIN/CREATININE RATIO, RANDOM URINE11 mg/g [...] be within a diagnostic category.Performed By: #### 6517, 7600, 10501 #### [facility] [place] [address] Sawmill Tally Clerk: Maged FORDreatinine (U) [Mass/Vol]71 mg/sVJmrkgo57-901 [facility] DiagnosticsComment on above:Performed By: #### 6517, 7600, 67166 #### [facility] [place] [address] Sawmill Tally Clerk: Maged Olson [facility] BETHANYOMPREHENSIVE METABOLIC PANELon 03-27-2025 Albumin [Mass/Vol]4.0 g/dLNormal3.6-5.1Quest DiagnosticsComment on above: Performed By: #### [id number], 7600, [id number] #### [facility] of [address], [address] [place] [address] Sawmill Tally Clerk: Maged Olson MDAlbumin/Globulin [Mass ratio]1.6 {ratio}Normal 1.0-2.5Quest DiagnosticsComment on above:Performed By: #### [id number], 7600, [id number] #### [facility] of [address], [address] [place] [address] Sawmill Tally Clerk: Maged Olson MDALP [Catalytic activity/Vol]73 U/[id number] [facility]osticsComment on above:Performed By: #### [id number], 7600, [id number] #### [facility] of [address], [address] [place] [address] Sawmill Tally Clerk: Maged Olson MDALT [Catalytic activity/Vol]49 U/[id number] [facility]osticsComment on above:Performed By: #### 6517, 0, [id number] #### [facility] of [address], [address] [place] [address] Sawmill Tally Clerk: Maged Olson MDAST [Catalytic activity/Vol]29 U/OQfqsmr27-43 [facility] DiagnosticsComment on above:Performed By: #### 6517, 7600, [id number] #### [facility] of [address] [address], [address] [place] [address] Sawmill Tally Clerk: Maged Olson MDBilirubin [Mass/Vol]1.0 mg/dLNormal0.2-1.2 Quest DiagnosticsComment on above:Performed By: #### 6517, 7600, 14859 #### [facility] [place] [address] Sawmill Tally Clerk: Maged Olson MDCalcium [Mass/Vol]9.1 mg/dLNormal8.6-10.3Quest DiagnosticsComment on above:Performed By: #### 6517, 7600, 17783 #### [facility] of [address], [address] [place] [address] Sawmill Tally Clerk: Maged Olson MDChloride [Moles/Vol]102 mmol/JYviiwg95-798 Quest DiagnosticsComment on above:Performed By: #### 6517, 7600, 89308 #### [facility] [address], [address] [place] [address] Sawmill Tally Clerk: Maged Olson MDCO2 [Moles/Vol]27 mmol/ALmzwsi13-64Brqvv DiagnosticsComment on above:Performed By: #### 6517, 7600, 48081 #### [facility] [place] [address] Sawmill Tally Clerk: Maged FORDreatinine [Mass/Vol]1.28 mg/dLHigh0.70-1.22 [facility] DiagnosticsComment on above:Performed By: #### 6517, 7600, 19150 #### [facility] [address], [address] [place] [address] Sawmill Tally Clerk: Maged Olson MDGFR/1.73 sq M.predicted among non-blacks MDRD (S/P/Bld) [Vol rate/Area]56 mL/min/{1.73_m2}Low> OR = 60Quest DiagnosticsComment on above:Performed By: #### 6517, 7600, 57036 #### [facility] [place] [address] Sawmill Tally Clerk: Maged Olson MDGlobulin (S) [Mass/Vol]2.5 g/dLNormal1.9-3.7 Quest DiagnosticsComment on above:Performed By: #### 6517, 7600, 36679 #### [facility] [place] [address] Sawmill Tally Clerk: Maged Olson MDGlucose [Mass/Vol]183 mg/uCAgyv28-49Ewkxy DiagnosticsComment on above:Result Comment: Fasting reference interval For someone without known diabetes, a glucose value >125 mg/dL indicates that they may have diabetes and this should be confirmed with a follow-up test.Performed By: #### 6517, 7600, 34532 #### [facility] [place] [address] Sawmill Tally Clerk: Maged Olson MDPotassium [Moles/Vol]4.3 mmol/LNormal3.5-5.3 Quest DiagnosticsComment on above:Performed By: #### 6517, 7600, 13579 #### [facility] [address], [address] [place] [address] Sawmill Tally Clerk: Maged Olson MDProtein [Mass/Vol]6.5 g/dLNormal6.1-8.1Quest DiagnosticsComment on above:Performed By: #### 6517, 7600, 60484 #### [facility] [place] [address] Sawmill Tally Clerk: Maged Olson MDSodium [Moles/Vol]139 mmol/WJonbxe801-303Yewwm DiagnosticsComment on above:Performed By: #### 6517, 7600, 87117 #### [facility] [place] [address] Sawmill Tally Clerk: Maged Olson MDUrea nitrogen [Mass/Vol]17 mg/dLNormal7-25 Quest DiagnosticsComment on above:Performed By: #### 6517, 7600, 45876 #### [facility] [place] [address] Sawmill Tally Clerk: Maged Olson MDUrea nitrogen/Creatinine [Mass ratio]13 mg/mg Normal6-22Quest DiagnosticsComment on above:Performed By: #### 6517, 7600, 67245 #### [facility] [place] [address] Sawmill Tally Clerk: Maged Olson MDLIPID PANEL, STANDARDon 56-46-2211Blhyqyncgkq [Mass/Vol]152 mg/dLNormal<200Quest DiagnosticsComment on above:Order Comment: FASTING:YES FASTING: YESPerformed By: #### 6517, 7600, 55372 #### [facility] [address], [address] [place] [address] Sawmill Tally Clerk: Maged Olson MDCholesterol in HDL [Mass/Vol]54 mg/dLNormal> OR = 40Quest DiagnosticsComment on above:Order Comment: FASTING:YES FASTING: YESPerformed By: #### 6517, 7600, 11147 #### [facility] [address], [address] [place] [address] Sawmill Tally Clerk: Maged FORDholesterol in LDL [Mass/Vol]82 mg/dLNormal Quest DiagnosticsComment on [...] LDL-C. Monroe GAN et al. TITI. 2013;310(19): 2245-7838 (http://education.[employer]/faq/LIG511)Performed By: #### 6517, 7600, 55403 #### [facility] [address], [address] [place] [address] Sawmill Tally Clerk: Maged Dumont.total/Cholesterol in HDL [Mass ratio]2.8 {ratio}Normal<5.0Quest DiagnosticsComment on above:Order Comment: FASTING:YES FASTING: YESPerformed By: #### 6517, 7600, 42393 #### [facility] [address], [address] [place] [address] Sawmill Tally Clerk: Maged WATERS HDL TQIELMOHSIM77 mg/dL (calc)Normal<130 Quest DiagnosticsComment on above:Order Comment: FASTING:YES FASTING: YESResult Comment: For patients with diabetes plus 1 major ASCVD risk factor, treating to a non-HDL-C goal of <100 mg/dL (LDL-C of <70 mg/dL) is considered a therapeutic option.Performed By: #### 6517, 7600, 31106 #### [facility] [address], [address] [place] [address] Sawmill Tally Clerk: Maged Olson MDTriglyceride [Mass/Vol]82 mg/dLNormal<150Quest DiagnosticsComment on above:Order Comment: FASTING:YES FASTING: YESPerformed By: #### 6517, 7600, 10427 #### [facility] [address], [address] [place] [address] Sawmill Tally Clerk: Maged Olson MDMR Hip - left WO contraston 94-55-8503[address] [address] Magnetic Resonance Report Signed Patient: MANISH ROOT MR#: [id number] : 1945 Acct:[id number] Age/Sex: 79 / M ADM Date: 03/12/25 Loc: MRI Attending Dr: MASON JOHNSON Ordering Physician: MASON JOHNSON Date of Service: 03/12/25 Procedure(s): MR hip LT wo con Accession Number(s): [id number] cc: MASON JOHNSON [address] [address] Patient Name: MANISH ROOT MRN: [id number] date: 1945 Sex: M Assigned Patient Location: MRI Current Patient Location: MRI Accession/Order Number: [id number] Exam Date: 03/12/2025 10:00 Report Date: 03/12/2025 [...] Burnett M.D. 03/12/2025 3:44 PM Dictation Location: [place] [address] Electronically authenticated by: [id number] Y Date: 03/12/2025 15:44 Dictated By: El Burnett M.D. Signed By: 03/12/25 1546 DD/ 1544 TD/TT: Legal Nurse Consultant:TBHRadiology, Radiologist, - 03/12/2025 [place] [address] Magnetic Resonance Report Signed Patient: MANISH ROOT MR#: [id number] : 1945 Acct:[id number] Age/Sex: 79 / M ADM Date: 03/12/25 Loc: MRI Attending Dr: MASON JOHNSON Ordering Physician: MASON JOHNSON Date of Service: 03/12/25 Procedure(s): MR hip LT wo con Accession Number(s): [id number] cc: MASON JOHNSON [place] [address] Patient Name: MANISH ROOT MRN: [id number] date: 1945 Sex: M Assigned Patient Location: MRI Current Patient Location: MRI Accession/Order Number: [id number] Exam Date: 03/12/2025 10:00 Report Date: 03/12/2025 [...] Burnett M.D. 03/12/2025 3:44 PM Dictation Location: [place] [address] Electronically authenticated by: [id number] Y Date: 03/12/2025 15:44 Dictated By: El Burnett M.D. Signed By: 03/12/25 1546 DD/ 1544 TD/TT: Legal Nurse Consultant: [facility] HealthcareRadiology Study observation (narrative)[facility] HealthcareMR Hip - left WO contrastOrdered By: Radiologist Radiology on 38-55-2440NGKB [employer] Work Phone: XR LUMBAR SPINE 2 OR 3Von 15-83-4512[place] [id number] XRay Report Signed Patient: MANISH ROOT MR#: [id number] : 1945 Acct:[id number] Age/Sex: 79 / M ADM Date: 12/28/24 Loc: [facility] Attending Dr: MASON JOHNSON Ordering Physician: MASON JOHNSON Date of Service: 12/28/24 Procedure(s): XR lumbar spine 2-3V Accession Number(s): [id number] cc: MASON JOHNSON [address] [address] Patient Name: MANISH ROOT MRN: [id number] date: 1945 Sex: M Assigned Patient Location: [facility] Current Patient Location: [facility] Accession/Order Number: [id number] Exam Date: 12/28/2024 16:30 Report Date: 12/28/2024 [...] Burnett M.D. 12/28/2024 4:31 PM Dictation Location: [place] [address] Electronically authenticated by: [id number] Y Date: 12/28/2024 16:31 Dictated By: El Burnett M.D. Signed By: 12/28/24 1634 DD/ 1631 TD/TT: Legal Nurse Consultant:TBHRadiology, Radiologist, - 12/28/2024 [place] [address] XRay Report Signed Patient: MANISH ROOT MR#: [id number] : 1945 Acct:[id number] Age/Sex: 79 / M ADM Date: 12/28/24 Loc: [facility] Attending Dr: MASON JOHNSON Ordering Physician: MASON JOHNSON Date of Service: 12/28/24 Procedure(s): XR lumbar spine 2-3V Accession Number(s): [id number] cc: MASON JOHNSON [place] [address] Patient Name: MANISH ROOT MRN: [id number] date: 1945 Sex: M Assigned Patient Location: [facility] Current Patient Location: [facility] Accession/Order Number: [id number] Exam Date: 12/28/2024 16:30 Report Date: 12/28/2024 [...] Burnett M.D. 12/28/2024 4:31 PM Dictation Location: [place] [address] Electronically authenticated by: [id number] Y Date: 12/28/2024 16:31 Dictated By: El Burnett M.D. Signed By: 12/28/24 1634 DD/ 1631 TD/TT: Legal Nurse Consultant: [facility] HealthcareRadiology Study observation (narrative)[facility] HealthcareXR LUMBAR SPINE 2 OR 3VOrdered By: Radiologist Radiology on 44-99-6698[facility] Work Phone: aNA SCREEN, IFA, W/REFL [...] indicated. For additional information, please refer to http://education.[employer]/faq/IGX246 (This link is being provided for informational/ educational purposes only.)Performed By: #### 905, %12838, 809, 249 #### [facility] [place] [address] [facility], [address] [place] [address] Sawmill Tally Clerk: Maged Olson MD #### [address]57[address] #### [facility] [address] [place] [address] Sawmill Tally Clerk: Yassine Bonilla M.D.,PhDANTINUCLEAR ANTIBODIES TITER AND PATTERNon 80-91-9057XIG PATTERNCytoplasmic, Polar/Golgi-likeAbnormalQuest DiagnosticsComment on above:Result Comment: Discontinuous speckled or granular perinuclear ribbon- like staining with polar distribution in the cytoplasm (e.g., anti-giantin, urtk-[id number]-149). Pattern is rare in Sjogren's syndrome, systemic lupus erythematosus (SLE), rheumatoid arthritis, mixed connective disease, granulomatosis with polyangiitis (GPA), idiopathic cerebellar ataxia, paraneoplastic cerebellar degeneration, and viral infections. AC-22: Polar/Golgi-like International Consensus on RAFAEL Patterns (https://doi.org/10.1515/tsbc-0407-4878)Performed By: #### 905, %59384, 809, 249 #### [facility] [address], [address] [place] [address] Sawmill Tally Clerk: Maged Olson MD #### 91972 #### [facility]/[place] [address] [facility] [place], [place] Sawmill Tally Clerk: Yassine Bonilla M.D.,PhDANA TITER1:40HighQuest Diagnostics Comment on above:Result Comment: A low level RAFAEL titer may be present in pre-clinical autoimmune diseases and normal individuals. Reference Range <1:40 Negative 1:40-1:80 Low Antibody Level >1:80 Elevated Antibody LevelPerformed By: #### 905, %38122, 809, 249 #### [facility] [address], [address] [place] [address] Sawmill Tally Clerk: Maged Olson MD #### [address]39[address] #### [facility] [address] [facility] [place], [place] Sawmill Tally Clerk: Yassine Bonilla M.D.,PhDC-REACTIVE PROTEINon 49-76-9443FIU [Mass/Vol]9.8 mg/LHigh<8.0Quest DiagnosticsComment on above:Performed By: #### 905, %82959, 809, 249 #### [facility] [address], [address] [place] [address] Sawmill Tally Clerk: Maged Olson MD #### 313[address] #### [facility]/[place] [address] [facility] [address] [place] Sawmill Tally Clerk: Yassine Bonilla M.D.,PhDRHEUMATOID ARTHRITIS DIAGNOSTIC PANEL 3on 68-46-2716RJGWWJ CITRULLINATED PEPTIDE (CCP) AB (IGG)<16Normal<20Quest DiagnosticsComment on above:Order Comment: FASTING:YES FASTING: YESResult Comment: Negative: <20 Weak Positive: 20 - 39 Moderate Positive: 40 - 59 Strong Positive: >59Performed By: #### 905, %89491, 809, 249 #### [facility] [address], [address] [place] [address] Sawmill Tally Clerk: Maged Olson MD #### #### [facility]/[address] [place] Sawmill Tally Clerk: Yassine Bonilla M.D.,PhDRHEUMATOID FACTOR (IGA)<5Normal<=6 [facility] DiagnosticsComment on above:Order Comment: FASTING:YES FASTING: YESPerformed By: #### 905, %22095, 809, 249 #### [facility] [address], [address] [place] [address] Sawmill Tally Clerk: Maged Olson MD #### #### [facility]/[address] [place], [place] Sawmill Tally Clerk: Yassine Bonilla M.D.,PhDRHEUMATOID FACTOR (IGG)<5Normal<=6 [facility] DiagnosticsComment on above:Order Comment: FASTING:YES FASTING: YESPerformed By: #### 905, %67151, 809, 249 #### [facility] [address], [address] [place] [address] Sawmill Tally Clerk: Maged Olson MD ### #### [facility]/[place] [address] [facility] [address] [place] Sawmill Tally Clerk: Yassine Bonilla M.D.,PhDRHEUMATOID FACTOR (IGM)<5Normal<=6 [facility] DiagnosticsComment on above:Order Comment: FASTING:YES FASTING: YESPerformed By: #### 905, %36077, 809, 249 #### [facility] of [address], [address] [place], [place] [address] Sawmill Tally Clerk: Maged Olson MD #### #### [facility]/[place] [address] [facility] [place], [place] Sawmill Tally Clerk: Yassine Bonilla M.D.,PhDSJOGREN'S ANTIBODY (SS-A)<1.0Normal [facility] DiagnosticsComment on above:Order Comment: FASTING:YES FASTING: YESResult Comment: Reference Range: < 1.0 NEG AIPerformed By: #### 905, %11329, 809, 249 #### [facility] of [address], [address] [place] [address] Sawmill Tally Clerk: Maged Olson MD #### #### [facility]/[place] [address] [facility] [place], [place] Sawmill Tally Clerk: Yassine Bonilla M.D.,PhDSJOGREN'S ANTIBODY (SS-B)<1.0Normal [facility] DiagnosticsComment on above:Order Comment: FASTING:YES FASTING: YESResult Comment: Reference Range: < 1.0 NEG AIPerformed By: #### 905, %84031, 809, 249 #### [facility] of [address], [address] [place], [place] [address] Sawmill Tally Clerk: Maged Olson MD #### #### [facility]/[place] [address] [facility] [place], [place] Sawmill Tally Clerk: Yassine Bonilla M.D.,PhDSED RATE BY MODIFIED WESTERGRENon 86-29-1658XYG RATE BY MODIFIED WESTERGREN9 mm/hNormal< OR = 20[facility] Comment on above:Performed By: #### 905, %28852, 809, 249 #### [facility] of [address], [address] [place], [place] [address] Sawmill Tally Clerk: Maged Olson MD #### #### [facility] [address] [facility] [address] [place] Sawmill Tally Clerk: Yassine Bonilla M.D.,PhDURIC ACIDon 47-27-2632Nxylg [Mass/Vol] 5.6 mg/dLNormal4.0-8.0Quest DiagnosticsComment on above:Result Comment: Therapeutic target for gout patients: <6.0 mg/dLPerformed By: #### 905, %59817, 809, 249 #### [facility] [address], [address] [place] [address] Sawmill Tally Clerk: Maged Olson MD #### 23648 #### [facility] [address] [facility] [address] [place] Sawmill Tally Clerk: Yassine Bonilla M.D.,PhDLaboratory - Hematology and Cell countson 44-67-6054RmL5j (Bld) [Mass fraction]7.1 %[facility] HealthcareNo Panel Informationon 50-63-6625JXHJ HealthcareXR Knee - left 3 Viewson 70-44-7078Olt[address] [address] XRay Report Signed Patient: MANISH ROOT MR#: [id number] : 1945 Acct:[id number] Age/Sex: 79 / M ADM Date: 12/09/24 Loc: RAD Attending Dr: MASON JOHNSON Ordering Physician: MASON JOHNSON Date of Service: 12/09/24 Procedure(s): XR knee LT 3V Accession Number(s): [id number] cc: MASON JOHNSON [address] [address] Patient Name: MANISH ROOT MRN: [id number] date: 1945 Sex: M Assigned Patient Location: RAD Current Patient Location: [facility] Accession/Order Number: [id number] Exam Date: 12/09/2024 13:17 Report Date: 12/09/2024 [...] Corea M.D. 12/09/2024 1:18 PM Dictation Location: [place] [address] Electronically authenticated by: [id number] Y Date: 12/09/2024 13:18 Dictated By: Mavis Corea M.D. Signed By: 12/09/24 1321 DD/ 1318 TD/TT: Legal Nurse Consultant:TBHRadiology, Radiologist, MD - 12/09/2024 The [place] [id number] XRay Report Signed Patient: MANISH ROOT MR#: [id number] : 1945 Acct:[id number] Age/Sex: 79 / M ADM Date: 12/09/24 Loc: [facility] Attending Dr: MASON JOHNSON Ordering Physician: MASON JOHNSON Date of Service: 12/09/24 Procedure(s): XR knee LT 3V Accession Number(s): [id number] cc: MASON JOHNSON The [place] [id number] Patient Name: MANISH ROOT MRN: [id number] date: 1945 Sex: M Assigned Patient Location: [facility] Current Patient Location: [facility] Accession/Order Number: [id number] Exam Date: 12/09/2024 13:17 Report Date: 12/09/2024 [...] Corea M.D. 12/09/2024 1:18 PM Dictation Location: [place] [address] Electronically authenticated by: [id number] Y Date: 12/09/2024 13:18 Dictated By: Mavis Corea M.D. Signed By: 12/09/24 1321 DD/ 1318 TD/TT: Legal Nurse Consultant: [facility] HealthcareRadiology Study observation (narrative)[facility] CenterXR Knee - left 3 ViewsOrdered By: Radiologist Radiology on 74-79-3248ATYZSaint Joseph Health Center Work Phone: ccf T3 SERPL-MCNCon 51-48-0779ZME T3 SERPL-MCNC73 ng/dLLow79 - 165 ng/dLUTAH VALLEY [facility] HealthcareInterpretation and review of laboratory resultsAbnormalUniversity Health [facility] T4 SERPL-MCNCon 11-91-1590I7 [Mass/Vol]5.6 ug/dL5.5 - 10.2 ug/dLUTAH VALLEY HOSPITAL HealthcareCCF TSH SERPL-ACNCon 07-48-8916ICQ TSH SERPL-ACNC2.85NOOK HealthcareNo Panel Informationon 02-90-4280Gwqkkkja Type: BLOOD SPECIMEN Ordering Facility: [facility] Address: [address] [place] [address] Original Ordering Provider: Yordan PATTENEllett Memorial HospitalT3 SerPl-mCncon 26-51-4488G2 [Mass/Vol]73 ng/wJBuu92-492KhsxngyptAcmc Healthcare System Glenbeigh Comment on above:Order Comment: Specimen Type: BLOOD SPECIMENOrdering Facility: [facility] Address:[address] [place] [address] Performed By: #### 3026-2, 3053-6, 3016-3 ####[facility] LABCLIA [id number] [address] SerPl-mCncon 44-62-6275I2 [Mass/Vol]5.6 ug/dLNormal5.5-10.2CMartin Memorial Hospital on above:Order Comment: Specimen Type: BLOOD SPECIMENOrdering Facility: [facility] Address:[address] [place], [place] [address]Performed By: #### 3026-2, 3053-6, 3016-3 ####[facility] LABCLIA [id number] [address] SerPl-aCncon 91-29-8891TZX Qn2.850 m[IU]/L Normal0.270-4.200[facility] on above:Order Comment: Specimen Type: BLOOD SPECIMENOrdering Facility: [facility] Address:[address] [place], [place] [address]Performed By: #### 3026-2, 3053-6, 3016-3 ####[facility] SYSTEMIA [id number] [address]ETCNOVon 05-42-2900YIIASiydaf Visit (LAURIE) MANISH ROOT ([id number]) 1945 M Date Time Provider Department 11/04/24 [...] Lymph 1.00 - 4.00 k/uL 0.48 (L) Madison% % 10.4 Abs Madison <0.87 k/uL 0.32 Eosin% % 1.6 Abs [...] injection of im (more content not included)... NormalAcmc Healthcare System GlenbeighCNOVSPon 96-49-7424EDPNHFArxlp (SP) Office (BRUNA) MANISH ROOT ([id number]) 1945 M Date Time Provider Department 11/04/24 [...] 11/04/2024 7:00 PM Signed NAME: Manish Root [facility] NO.: [id number] DATE OF SERVICE: November 04, 2024 (Jacquelyn) Some elements in this clinic note that are critical to medical decision making have been carefully reviewed and included from a prior clinic note dated: May 06, 2024 (Jacquelyn) Referring Provider: Dr. Татьяна Feliz Additional Clinicians involved in Manish Root's care: Sernee Morales DIAGNOSIS: Base of Tongue squamous cell [...] Ca Stage 3 - 2/5 LN + Dewitt regimen on protocol Updated Visit, November 04, 2024: Manish is doing well but his Jahaira is still dealing with an infection of left shoulder. He's now doing all the cooking. He is having left hip pain c/w arthritis. Reviewed scans and th (more content not included)...NormalMiddletown Hospital W Auto Differential panel (Bld)on 58-84-1033Kujiruxai (Bld) [#/Vol] 0.04 10*3/uLNormal<0.11CMartin Memorial Hospital on above:Order Comment: Specimen Type: BLOOD SPECIMENOrdering Facility: [facility] Address:[address] [place], [place] [address]Performed By: #### 38399-8 ####[facility] LABCLIA [id number] [place], [place] [address]Xmuwsxsze/100 WBC (Bld)1.0 %NormalCleveland Clinic Mercy Hospital on above:Order Comment: Specimen Type: BLOOD SPECIMENOrdering Facility: [facility] Address:[address] [place], [place] [address]Performed By: #### 73968-5 ####[facility] LABCLIA [id number] [place], [place] [address]Oqltbxtnlhzc cell count method Nom (Bld)AutoNormalCMartin Memorial Hospital on above:Order Comment: Specimen Type: BLOOD SPECIMENOrdering Facility: [facility] Address:[address] [place], [place] [address]Performed By: #### 93684-6 ####[facility] LABCLIA [id number] [place], [place] [address]Riwmxztgcks (Bld) [#/Vol]0.10 10*3/uLNormal<0.46[facility] on above:Order Comment: Specimen Type: BLOOD SPECIMENOrdering Facility: [facility] Address:[address] [place], [place] [address]Performed By: #### 34480-0 ####[facility] LABCLIA [id number] [place], [place] [address]Pzvcfciuksm/100 WBC (Bld)2.6 %NormalCleveland Clinic Mercy Hospital on above:Order Comment: Specimen Type: BLOOD SPECIMENOrdering Facility: [facility] Address:[address] [place], [place] [address]Performed By: #### 44324-8 ####[facility] LABCLIA [id number] [place], [place] [address]Kwvceiipcyh distribution width (RBC) [Ratio]13.6 %Normal 11.5-15.0[facility] on above:Order Comment: Specimen Type: BLOOD SPECIMENOrdering Facility: [facility] Address:[address] [place], [place] [address]Performed By: #### 17505-5 ####[facility] LABCLIA [id number] [place] [address] Hematocrit (Bld) [Volume fraction]41.1 %Laezfh96.0-51.0[facility] on above:Order Comment: Specimen Type: BLOOD SPECIMENOrdering Facility: [facility] Address:[address] [place], [place] [address]Performed By: #### 30241-2 ####[facility] LABCLIA [id number] [place], [place] [address]Qgincynmif (Bld) [Mass/Vol]14.0 g/eIQncemp40.0-17.0[facility] on above:Order Comment: Specimen Type: BLOOD SPECIMENOrdering Facility: [facility] Address:[address] [place], [place] [address]Performed By: #### 16111-0 ####[facility] LABCLIA [id number] [place], [place] [address]Gkyvnzzo granulocytes (Bld) [#/Vol]0.04 10*3/uLNormal <0.10[facility] on above:Order Comment: Specimen Type: BLOOD SPECIMENOrdering Facility: [facility] Address:[address] [place], [place] [address]Performed By: #### 00892-7 ####[facility] LABCLIA [id number] [place], [place] [address]Oexhezrq granulocytes/100 WBC (Bld)1.0 %NormalCleveland Clinic Mercy Hospital on above: Order Comment: Specimen Type: BLOOD SPECIMENOrdering Facility: [facility] Address:[address] [place], [place] [address]Performed By: #### 59227- 8 ####[facility] LABIA [id number] [place], [place] [address]Yakuwvvqubd (Bld) [#/Vol]0.58 10*3/uLLow1.00-4.00 [facility] on above:Order Comment: Specimen Type: BLOOD SPECIMENOrdering Facility: [facility] Address:[address] [place], [place] [address]Performed By: #### 25441-2 ####[facility] LABIA [id number] [place], [place] [address]Jjdcvvbpwmy/100 WBC (Bld)14.8 %NormalCleveland Clinic Mercy Hospital on above:Order Comment: Specimen Type: BLOOD SPECIMENOrdering Facility: [facility] Address:[address] [place], [place] [address]Performed By: #### 55490-3 ####[facility] LABIA [id number] [place] [place], [place] [address]THV (RBC) [Entitic mass]30.8 eyCrfjvb75.0-34.0[facility] on above:Order Comment: Specimen Type: BLOOD SPECIMENOrdering Facility: [facility] Address:[address] [place], [place] [address]Performed By: #### 15668-7 ####[facility] LABIA [id number] [place], [place] [address]TICL (RBC) [Mass/Vol]34.1 g/pUUugtem88.5-36.0[facility] on above: Order Comment: Specimen Type: BLOOD SPECIMENOrdering Facility: [facility] Address:[address] [place], [place] [address]Performed By: #### 37486- 8 ####[facility] LABIA [id number] [place], [place] [address]NSK (RBC) [Entitic vol]90.3 tJIexrfi86.0-100.0[facility] on above:Order Comment: Specimen Type: BLOOD SPECIMENOrdering Facility: [facility] Address:[address] [place], [place] [address]Performed By: #### 53629-6 ####[facility] LABIA [id number] [place], [place] [address]Jxezbzxsy (Bld) [#/Vol]0.34 10*3/uLNormal<0.87[facility] on above:Order Comment: Specimen Type: BLOOD SPECIMENOrdering Facility: [facility] Address:[address] [place], [place] [address]Performed By: #### 62943- 8 ####[facility] LABCLIA [id number] [place], [place] [address]Fierdvhnf/100 WBC (Bld)8.7 %NormalCleveland Clinic Mercy Hospital on above:Order Comment: Specimen Type: BLOOD SPECIMENOrdering Facility: [facility] Address:[address] [place], [place] [address]Performed By: #### 62061-5 ####[facility] LABCLIA [id number] [place], [place] [address]Pufntvkvhib (Bld) [#/Vol]2.81 10*3/uLNormal1.45-7.50[facility] on above:Order Comment: Specimen Type: BLOOD SPECIMENOrdering Facility: [facility] Address:[address] [place], [place] [address]Performed By: #### 57369-1 ####[facility] LABCLIA [id number] [place], [place] [address]Kzttzeaobzf/100 WBC (Bld)71.9 %NormalCleveland Clinic Mercy Hospital on above:Order Comment: Specimen Type: BLOOD SPECIMENOrdering Facility: [facility] Address:[address] [place], [place] [address]Performed By: #### 57651-4 ####[facility] LABIA [id number] [place], [place] [address]Iepwtgfbr RBC (Bld) [#/Vol] 10*3/uLNormal<0.01[facility] on above:Order Comment: Specimen Type: BLOOD SPECIMENOrdering Facility: [facility] Address:[address] [place], [place] [address]Performed By: #### 56531-4 ####[facility] LABCLIA [id number] [place], [place] [address]Xwheqpxkk RBC/100 WBC (Bld) [Ratio]0.0 /100 WBCNormal [facility] on above:Order Comment: Specimen Type: BLOOD SPECIMENOrdering Facility: [facility] Address:[address] [place], [place] [address]Performed By: #### 39018-4 ####[facility] LABIA [id number] [place], [place] [address]Nrmkxjwk mean volume (Bld) [Entitic vol]9.7 fLNormal9.0-12.7CMartin Memorial Hospital on above:Order Comment: Specimen Type: BLOOD SPECIMENOrdering Facility: [facility] Address:[address] [place], [place] [address] Performed By: #### 88403-2 ####[facility] LABCLIA [id number] [place], [place] [address]Wzavgzfrh (Bld) [#/Vol]210 10*3/rENsgbkl227-587NoobwgrjoCleveland Clinic Mercy Hospital on above:Order Comment: Specimen Type: BLOOD SPECIMENOrdering Facility: [facility] Address:[address] [place], [place] [address]Performed By: #### 87843-5 ####[facility] LABCLIA [id number] [place], [place] [address]RJA (Bld) [#/Vol]4.55 10*6/uLNormal4.20-6.00[facility] on above:Order Comment: Specimen Type: BLOOD SPECIMENOrdering Facility: [facility] Address:[address] [place], [place] [address]Performed By: #### 46204-0 ####[facility] LABIA [id number] [place], [place] [address]CJG (Bld) [#/Vol]3.91 10*3/uLNormal3.70-11.00[facility] on above: Order Comment: Specimen Type: BLOOD SPECIMENOrdering Facility: [facility] Address:[address] [place], [place] [address]Performed By: #### 69089- 8 ####[facility] LABCLIA [id number] [place], [place] [address]GRL CBC W AUTO DIFF BLDon 85-03-1778Xsbsmnmru/100 WBC (Bld)1 %NOMS HealthcareCCF BASOPHILS # BLD AUTO0.04NINFNOMS HealthcareCCF DIFFERENTIAL METHOD BLDAutoNOMS HealthcareCCF EOSINOPHIL # BLD AUTO0.1NINFNOMS HealthcareCCF LYMPHOCYTES # BLD AUTO0.58LowNOMS HealthcareCCF MONOCYTES # BLD AUTO0.34NIJefferson Memorial Hospital NEUTROPHILS # BLD AUTO2.81NOSt. Louis VA Medical Center NRBC # BLD AUTO<0.01NINFUniversity Health Lakewood Medical Center NRBC/100 WBC BLD-RTO0/100 WBCUniversity Health Lakewood Medical Center PLATELET # BLD [id number] Health Lakewood Medical Center PMV BLD AUTO9.7 fL9.0 - 12.7 fLUniversity Health Lakewood Medical Center WBC # BLD AUTO3.91Saint [facility] Health CenterEosinophils/100 WBC (Bld)2.6 %[facility] Health CenterErythrocyte distribution width (RBC) [Ratio]13.6 %11.5 - 15.0 %[facility] Health CenterHematocrit (Bld) [Volume fraction]41.1 %39.0 - 51.0 %[facility] Health CenterHemoglobin (Bld) [Mass/Vol]14 g/dL13.0 - 17.0 g/dLMissouri Baptist Medical Center GRANULOCYTES # BLD AUTO0.04NIMetropolitan Hospital GRANULOCYTES/LEUK NFR BLD AUTO 1 %[facility] Health CenterInterpretation and review of laboratory resultsAbnoNazareth HospitalLymphocytes/100 WBC (Bld)14.8 %[facility]helps HealthH (RBC) [Entitic mass] 30.8 pg26.0 - 34.0 pgPhelps HealthHC (RBC) [Mass/Vol]34.1 g/dL30.5 - 36.0 g/dLPhelps HealthV (RBC) [Entitic vol]90.3 fL80.0 - 100.0 fLSaint Joseph Health Center Monocytes/100 WBC (Bld)8.7 %[facility] Health CenterNeutrophils/100 WBC (Bld)71.9 %[facility] Health CenterRBC (Bld) [#/Vol]4.55 10*6/uL4.20 - 6.00 m/uLSaint Joseph Health CenterSpecimen Type: BLOOD SPECIMEN Ordering Facility: [facility] Address: [address] [place] [id number] Original Ordering Provider: JOHN CARLOSCenterPointe HospitalCT CHEST W IVCONon 09-11-5178RO CHEST W IVCON* * *Final Report* * * DATE OF EXAM: Oct 28 2024 9:48AM [facility] 0539 - CT CHEST W [...] any questions regarding this interpretation, please call [phone]. If you are unable to reach us at the number above, please feel free to contact [facility] eRadiology at [phone]. [id number]_IDCSIACNNormalAcmc Healthcare System GlenbeighCT Chest W contrast Kinga 10-28-2024* * *Final Report* * * DATE OF EXAM: Oct 28 2024 9:48AM [facility] 0539 - CT CHEST W [...] any questions regarding this interpretation, please call [phone]. If you are unable to reach us at the number above, please feel free to contact [facility]woodsiology at [phone]. [id number]^AGFA_IDC^SI^ACNCCFRadiology, Radiologist, - 10/28/2024 * * *Final Report* * * DATE OF EXAM: Oct 28 2024 9:48AM [facility] 0539 - CT CHEST W [...] any questions regarding this interpretation, please call [phone]. If you are unable to reach us at the number above, please feel free to contact [facility] Hospital [facility] Southwoodsiology at [phone]. [id number]^AGFA_IDC^SI^ACN NOMS HealthcareCT Chest W contrast IVOrdered By: Radiologist Radiology on 72-07-7358ZZLL [employer] Work Phone: cT NECK SOFT TISSUE W IVCONon 10-28-2024* * *Final Report* * * DATE OF EXAM: Oct 28 2024 9:48AM [facility] 0013 - CT NECK SOFT [...] review the electronic medical record, history of T80-yzvvonem LEFT tongue base squamous cell carcinoma status [...] any questions regarding this interpretation, please call [phone]. If you are unable to reach us at the number above, please feel free to contact [facility]woodsi[facility] at [phone]. [id number]^AGFA_IDC^SI^ACNCCFRadiology, RadiologistMD - 10/28/2024 * * *Final Report* * * DATE OF EXAM: Oct 28 2024 9:48AM [facility] 0013 - CT NECK SOFT [...] review the electronic medical record, history of V87-ritelyha LEFT tongue base squamous cell carcinoma status [...] any questions regarding this interpretation, please call [phone]. If you are unable to reach us at the number above, please feel free to contact [facility]woodsiology at [phone]. [id number]^AGFA_IDC^SI^ACN NOMS HealthcareCT NECK SOFT TISSUE W IVCON* * *Final Report* * * DATE OF EXAM: Oct 28 2024 9:48AM [facility] 0013 - CT NECK SOFT [...] review the electronic medical record, history of B70-noaffzzq LEFT tongue base squamous cell carcinoma status [...] any questions regarding this interpretation, please call [phone]. If you are unable to reach us at the number above, please feel free to contact [facility] eRadiology at [phone]. [id number]_IDCSIACNNormalClinton Memorial Hospital NECK SOFT TISSUE W IVCONOrdered By: Radiologist Radiology on 19-29-2275AKKWSaint Joseph Health Center Work Phone: comprehensive metabolic 2000 panelon 87-46-4382Lmjqriq [Mass/Vol]4.6 g/dLNormal3.9-4.9CMartin Memorial Hospital on above:Order Comment: Specimen Type: BLOOD SPECIMENOrdering Facility: [facility] Address:[address] [place], [place] [address]Performed By: #### 3016-3 ####[facility] LABCLIA [id number] [place] [address] [place]#### 99698-6 ####[facility] LABCLIA [id number] [place], [place] [address]MML [Catalytic activity/Vol]61 U/UPsrfku72-332PebcftgiuAcmc Healthcare System Glenbeigh Comment on above:Order Comment: Specimen Type: BLOOD SPECIMENOrdering Facility: [facility] Address:[address] [place] [address] Performed By: #### 3016-3 ####[facility] LABCLIA [id number] [address] [place]#### 16420-1 ####[facility] LABCLIA [id number] [place], [place] [address]BDM [Catalytic activity/Vol]27 U/LNormal 10-54[facility] on above:Order Comment: Specimen Type: BLOOD SPECIMENOrdering Facility: [facility] Address:[address] [place], [place] [address]Performed By: #### 3016-3 ####[facility] LABCLIA [id number] [place] [address] [place]#### 95646-5 ####[facility] LABCLIA [id number] [place], [place] [address]Cyguv gap [Moles/Vol]11 mmol/L Normal8-15[facility] on above:Order Comment: Specimen Type: BLOOD SPECIMENOrdering Facility: [facility] Address:[address] [place], [place] [address]Performed By: #### 3016-3 ####[facility] LABCLIA [id number] [place] [address] [place]#### 08342-7 ####[facility] CENTERJERMAINE [facility] [place] BCLIA [id number] [place], [place] [address]JZT [Catalytic activity/Vol]23 U/FYycvnf70-89VxikvinvbC[facility] Clinic [facility] Hospital on above:Order Comment: Specimen Type: BLOOD SPECIMENOrdering Facility: [facility] Address:[address] [place], [place] [address]Performed By: #### 3016-3 ####[facility] LABCLIA [id number] [place] [address] [place]#### 37702-8 ####[facility] LABCLIA [id number] [place], [place] [address]Jdixqmvrk [Mass/Vol]0.5 mg/dLNormal0.2-1.3CMartin Memorial Hospital on above:Order Comment: Specimen Type: BLOOD SPECIMENOrdering Facility: [facility] Address:[address] [place] [address] Performed By: #### 3016-3 ####[facility] LABCLIA [id number] [place] [address] [place]#### 21014-4 ####[facility] LABCLIA [id number] [place], [place] [address]Mcjydtz [Mass/Vol]9.8 mg/dLNormal8.5-10.2 [facility] on above:Order Comment: Specimen Type: BLOOD SPECIMENOrdering Facility: [facility] Address:[address] [place], [place] [address]Performed By: #### 3016-3 ####[facility] LABCLIA [id number] [place] [address] [place]#### 85276-5 ####[facility] LABCLIA [id number] [place], [place] [address]Llfyrkez [Moles/Vol]100 mmol/FDsiufu69-997 [facility] on above:Order Comment: Specimen Type: BLOOD SPECIMENOrdering Facility: [facility] Address:[address] [place], [place] [address]Performed By: #### 3016-3 ####[facility] LABCLIA [id number] [place] [address] [place]#### 76533-0 ####[facility] LABCLIA [id number] [place], [place] [address]RX5 [Moles/Vol]27 mmol/VSppccy20-56XxskebzzvCleveland Clinic Mercy Hospital on above:Order Comment: Specimen Type: BLOOD SPECIMENOrdering Facility: [facility] Address:[address] [place], [place] [address]Performed By: #### 3016-3 ####[facility] LABCLIA [id number] [address] [place]#### 92387-4 ####[facility] LABCLIA [id number] [place], [place] [address]Jimbehdine [Mass/Vol]1.04 mg/dLNormal 0.73-1.22[facility] on above:Order Comment: Specimen Type: BLOOD SPECIMENOrdering Facility: [facility] Address:[address] [place], [place] [address]Performed By: #### 3016-3 ####[facility] LABCLIA [id number] [place] [address] [place]#### 87102-1 ####[facility] [place] BCLIA [id number] [place], [place] [address]Eatbdwqhog and Glomerular filtration rate.predicted panel (S/P/Bld)73 mL/min/1.73m???Normal>=60 [facility] on above:Order Comment: Specimen Type: BLOOD SPECIMENOrdering Facility: [facility] Address:[address] [place], [place] [address]Result Comment: Estimated Glomerular Filtration Rate (eGFR) is [...] accurately reflect actual GFR.Performed By: #### 3016-3 ####[facility] LABCLIA [id number] [address]#### 54607-0 ####[facility] LABCLIA [id number] [place], [place] [address]Izprsir [Mass/Vol]235 mg/kDIfuc01-40 [facility] on above:Order Comment: Specimen Type: BLOOD SPECIMENOrdering Facility: [facility] Address:[address] [place] [address]Tftavi Comment: The [place] Diabetes Association (ADA) provides guidance for cutoff [...] Medical Care in Diabetes 2016, [place] Diabetes Association. Diabetes Care. 2016.39(Suppl 1).Performed By: #### 3016-3 ####[facility] LABCLIA [id number] [place] [address] [place]#### 21561-5 ####[facility] LABCLIA [id number] [place], [place] [address]Fcvkowvpx [Moles/Vol]4.3 mmol/LNormal3.7-5.1CPremier Health Miami [facility] Comment on above:Order Comment: Specimen Type: BLOOD SPECIMENOrdering Facility: [facility] Address:[address] [place] [address] Performed By: #### 3016-3 ####[facility] LABCLIA [id number] [place] [address] [place]#### 70949-1 ####[facility] LABCLIA [id number] [place], [place] [address]Dlzgdea [Mass/Vol]7.2 g/dLNormal6.3-8.0 [facility] GlenbeighComment on above:Order Comment: Specimen Type: BLOOD SPECIMENOrdering Facility: [facility] Address:[address] [place], [place] [address]Performed By: #### 3016-3 ####[facility] LABCLIA [id number] [place] [address] [place] [facility] [place]#### 63633-2 ####[facility] LABCLIA [id number] [place], [place] [address]Lfilxx [Moles/Vol]138 mmol/BVxctmq875-121 [facility] GlenbeighCompaul oliver [facility] on above:Order Comment: Specimen Type: BLOOD SPECIMENOrdering Facility: [facility] Address:[address] [place], [place] [address]Performed By: #### 3016-3 ####[facility] LABCLIA [id number] [place] [address] [place]#### 70330-2 ####[facility] CENTERJERMAINE [facility] LABCLIA [id number] [place], [place] [address]Hbgf nitrogen [Mass/Vol]13 mg/dLNormal9-24 [facility] on above:Order Comment: Specimen Type: BLOOD SPECIMENOrdering Facility: [facility] Address:[address] [place], [place] [address]Performed By: #### 3016-3 ####[facility] LABCLIA [id number] [address]#### 23745-3 ####[facility] LABCLIA [id number] [place], [place] [address] Panel Informationon 89-75-5761Kewtcqlbc Study observation (narrative)NOMS HealthcareT4 SerPl-mCncon 45-03-6065L9 [Mass/Vol]0.6 ug/dLLow5.5-10.2CMartin Memorial Hospital on above:Order Comment: Specimen Type: BLOOD SPECIMENOrdering Facility: [facility] Address:[address] [place], [place] [address]Performed By: #### 3026-2 ####[facility] LABIA [id number] [address] STATES OF [facility] HOSPITALTS SerPl-aCncon 88-51-4956JHO Qn 3.310 m[IU]/LNormal0.270-4.200[facility] on above:Order Comment: Specimen Type: BLOOD SPECIMENOrdering Facility: [facility] Address:[address] [place], [place] [address]Performed By: #### 3016-3 ####[facility] LABCLIA [id number] [place] [address] [place]#### 63806-3 ####[facility] LABCLIA [id number] [place], [place] [address]JAXAlt 33-19-7688BGULDmjypzybq (RADTSA) MANISH ROOT ([id number]) 1945 M Date Time Provider Department 10/27/24 [...] of thyroid [E07.89] Order(s):T4/THYROXINE [SQT4] Order #: [id number] FUTURE THYROID STIMULATING HORMONE [SQTSH] Order #: [id number] FUTURE THYROID STIMULATING HORMONE [SQTSH] Order #: [id number] FUTURE Prescriptions as of 10/29/2024 - cholecalciferol, [...] [E74.*02/11/2023 Encounter Status:Closed by NELA ANTOINE on 10/29/24NoT[facility] CERVICAL SPINE 2-3Von 25-40-0540[place] [address] XRay Report Signed Patient: MANISH ROOT MR#: [id number] : 1945 Acct:[id number] Age/Sex: 78 / M ADM Date: 10/13/24 Loc: RAD Attending Dr: MASON JOHNSON Ordering Physician: MASON JOHNSON Date of Service: 10/13/24 Procedure(s): XR cervical spine 2-3V Accession Number(s): [id number] cc: MASON JOHNSON [address] [address] Patient Name: MANISH ROOT MRN: [id number] date: 1945 Sex: M Assigned Patient Location: [facility] Current Patient Location: [facility] Accession/Order Number: [id number] Exam Date: 10/13/2024 10:38 Report Date: 10/13/2024 [...] Eric Alcaraz M.D.10/13/2024 10:40 AM Dictation Location: [place] [address] Electronically authenticated by: [id number] Y Date: 10/13/2024 10:40 Dictated By: Eric Alcaraz D.O. Signed By: 10/13/24 1043 DD/ 1040 TD/TT: Legal Nurse Consultant:TBHRadiology, Radiologist, MD - 10/13/2024 [place] [address] XRay Report Signed Patient: MANISH ROOT MR#: [id number] : 1945 Acct:[id number] Age/Sex: 78 / M ADM Date: 10/13/24 Loc: RAD Attending Dr: MASON JOHNSON Ordering Physician: MASON JOHNSON Date of Service: 10/13/24 Procedure(s): XR cervical spine 2-3V Accession Number(s): [id number] cc: MASON JOHNSON [place] [id number] Patient Name: MANISH ROOT MRN: [id number] date: 1945 Sex: M Assigned Patient Location: [facility] Current Patient Location: [facility] Accession/Order Number: [id number] Exam Date: 10/13/2024 10:38 Report Date: 10/13/2024 [...] Eric Alcaraz M.D.10/13/2024 10:40 AM Dictation Location: [place] [address] Electronically authenticated by: [id number] Y Date: 10/13/2024 10:40 Dictated By: Eric Alcaraz D.O. Signed By: 10/13/24 1043 DD/ 1040 TD/TT: Legal Nurse Consultant: QUIANA HealthcareRadiology Study observation (narrative)NOMS HealthcareXR CERVICAL SPINE 2-3VOrdered By: Radiologist Radiology on 89-91-4201AG[facility] Work Phone: XR HIP LT MIN 2Von 63-07-5575[place], [place] [address] XRay Report Signed Patient: MANISH ROOT MR#: [id number] : 1945 Acct:[id number] Age/Sex: 78 / M ADM Date: 10/13/24 Loc: RAD Attending Dr: MASON JOHNSON Ordering Physician: MASON JOHNSON Date of Service: 10/13/24 Procedure(s): XR hip LT min 2V Accession Number(s): [id number] cc: MASON JOHNSON [place] [id number] Patient Name: MANISH ROOT MRN: [id number] date: 1945 Sex: M Assigned Patient Location: [facility] Current Patient Location: [facility] Accession/Order Number: [id number] Exam Date: 10/13/2024 10:37 Report Date: 10/13/2024 [...] Eric Alcaraz M.D.10/13/2024 10:38 AM Dictation Location: RADIO-PC-23 Electronically authenticated by: [id number] Y Date: 10/13/2024 10:38 Dictated By: Eric Alcaraz D.O. Signed By: 10/13/24 1041 DD/ 1038 TD/TT: Legal Nurse Consultant:Kris Radiologist, - 10/13/2024 [place] [address] XRay Report Signed Patient: MANISH ROOT MR#: [id number] : 1945 Acct:[id number] Age/Sex: 78 / M ADM Date: 10/13/24 Loc: RAD Attending Dr: MASON JOHNSON Ordering Physician: MASON JOHNSON Date of Service: 10/13/24 Procedure(s): XR hip LT min 2V Accession Number(s): [id number] cc: MASON JOHNSON [place] [id number] Patient Name: MANISH ROOT MRN: [id number] date: 1945 Sex: M Assigned Patient Location: [facility] Current Patient Location: [facility] Accession/Order Number: [id number] Exam Date: 10/13/2024 10:37 Report Date: 10/13/2024 [...] Eric Alcaraz M.D.10/13/2024 10:38 AM Dictation Location: [facility]-23 Electronically authenticated by: [id number] Y Date: 10/13/2024 10:38 Dictated By: Eric Alcaraz D.O. Signed By: 10/13/24 1041 DD/ 1038 TD/TT: Legal Nurse Consultant: [facility] HealthcareRadiology Study observation (narrative)QUIANA KerrXR HIP LT MIN 2VOrdered By: Radiologist Radiology on 14-29-6992SWTK [employer] Work Phone: No Panel Informationon 03-08-7694EXLQSaint Joseph Health CenterNOOK HealthcarePSA, TOTALon 09-38-8285UJG, TOTAL1.15 ng/mLNormal< OR = 4.00Quest DiagnosticsComment on [...] absence of disease.Performed By: #### [id number] #### [facility] [address], [address] [place] [id number] Sawmill Tally Clerk: Maged Olson MDLaboratory - Hematology and Cell countson [id number] (Bld) [Mass fraction]6.9 %[facility] HealthcareNo Panel Informationon [id number] Joseph Health CenterNo Panel Informationon [id number] HealthcareCNOVon [id number] Visit (RADTSA) MANISH ROOT ([id number]) 1945 M Date Time Provider Department 05/06/24 [...] Lymph 1.00 - 4.00 k/uL 0.48 (L) [place]% % 10.4 Abs [place] <0.87 k/uL 0.32 Eosin% % 1.6 Abs [...] significant neck swelling RESPIRATORY: (more content not included)...NormalAcmc Healthcare [facility] CNOVSPon [id number] (SP) Office (HEMAS[place]) MANISH ROOT ([id number]) 1945 M Date Time Provider Department 05/06/24 3:20 PM JOHN ENGLAND During your visit today, we recorded the following information about you: Temperature Pulse Respiration Blood pressure 97.8 degrees 60/minute 18/minute 122/73 Weight Height 86.7 kg 1.669 m John England MD 05/09/2024 10:42 AM Signed NAME: Manish Root [facility] NO.: [id number] DATE OF SERVICE: May 06, 2024 (Jacquelyn) Some elements in this clinic note that are critical to medical decision making have been carefully reviewed and included from a prior clinic note dated: October 23, 2023 (Jacquelyn) Referring Provider: Dr. Татьяна Feliz Additional Clinicians involved in Manish Yi Dk's care: Serene Morales DIAGNOSIS: Base of Tongue [...] Ca Stage 3 - 2/5 LN + Dewitt regimen on protocol Updated Visit, May 06, [...] of abnormalities. Kidney function (more content not included)...NormalAcmc Healthcare System Glenbeigh CBC W Auto Differential panel (Bld)on [id number] (Bld) [#/Vol]0.03 10*3/[facility] CenterDifferential cell count method Nom (Bld)AutoCleveland ClinicEosinophils (Bld) [#/Vol]0.06 10*3/uLNITogus VA Medical CenterImmature granulocytes (Bld) [#/Vol]NINFClevelMercy Health St. Charles HospitalImmature granulocytes/100 WBC (Bld)0.6 %[facility] HospitalLymphocytes (Bld) [#/Vol]0.46 10*3/uLMercy Health Willard Hospital ClinicMonocytes (Bld) [#/Vol]0.30 10*3/uLNISalem Regional Medical Center ClinicNeutrophils (Bld) [#/Vol]2.59 10*3/[facility] HospitalNucleated RBC (Bld) [#/Vol]NINFCleveland ClinicNucleated RBC/100 WBC (Bld) [Ratio]0.0 %/100 WBCCleveland Clinic Hillcrest HospitalPlatelet mean volume (Bld) [Entitic vol]9.4 fL9.0 - 12.7 fLCleveland ClinicPlatelets (Bld) [#/Vol]206 10*3/uLCleveland Clinic Hillcrest HospitalWBC (Bld) [#/Vol]3.46 10*3/uLLow [facility] CBC W AUTO DIFF BLDon [id number] BASOPHILS # BLD AUTO0.03 [facility] DIFFERENTIAL METHOD BLDAutoNOMS [facility] EOSINOPHIL # BLD AUTO0.06[facility] LYMPHOCYTES # BLD AUTO0.46[facility] MONOCYTES # BLD AUTO0.3NIJefferson Memorial Hospital NEUTROPHILS # BLD AUTO2.59[facility] NRBC # BLD AUTO<0.01NIJefferson Memorial Hospital NRBC/100 WBC BLD-RTO0/100 WBCUniversity Health Lakewood Medical Center PLATELET # BLD [id number]. Louis VA Medical Center PMV BLD AUTO9.4 fL9.0 - 12.7 fLNOSt. Louis VA Medical Center WBC # BLD AUTO3.46LowNOSt. Louis Children's Hospital GRANULOCYTES # BLD AUTO<0.03NINFNOSt. Louis Children's Hospital GRANULOCYTES/LEUK NFR BLD AUTO0.6 %[facility] HealthcareSpecimen Type: BLOOD SPECIMEN Ordering Facility: [facility] Address: [address] [place] [address] Original Ordering Provider: JOHN DANIELISYNCCCF FERRITIN SERPL-MCNCon [id number] FERRITIN SERPL-SRQF932.0 ng/mL30.3 - 565.7 ng/mLNThe Rehabilitation Institute of St. [facility] FOLATE SERPL-MCNCon 89-88-6446RDE FOLATE SERPL-MCNC12.1 ng/mL4.7 - PINF ng/mL [facility] IRON+TIBC PNL SERPLon 57-31-0271XCP IRON SERPL-MCNC78 ug/dL41 - 186 ug/dLUniversity Health Lakewood Medical Center IRON/TIBC SERPL-SRTO26.0 %15.0 - 57.0 %[facility] TIBC SERPL-JSDE251 ug/dL232 - 386 ug/dLUTAH VALLEY HOSPITAL HealthcareSpecimen Type: BLOOD SPECIMEN Ordering Facility: [facility] Address: [address] [place] [address] Original Ordering Provider: JOHN DANIELISYRAFACT Chest W contrast [place] [id number]: 1. No interval change since 10/16/23. 2. [...] any questions regarding this interpretation, please call [phone]. If you are unable to reach us at the number above, please feel free to contact [facility] eRadiology at [phone].DIVISION OF RADIOLOGY* * *Final Report* * * DATE OF EXAM: Apr 23 2024 9:58AM [facility] 0539 - CT CHEST W [...] images: No additional findings. DIVISION OF RADIOLOGYProvider, [facility] [place] - 04/23/2024 * * *Final Report* * * DATE OF EXAM: Apr 23 2024 9:58AM [facility] 0539 - CT CHEST W [...] any questions regarding this interpretation, please call [phone]. If you are unable to reach us at the number above, please feel free to contact [facility] eRadiology at [phone]. [facility]* * *Final Report* * * DATE OF EXAM: Apr 23 2024 9:58AM [facility] 0539 - CT CHEST W [...] any questions regarding this interpretation, please call [phone]. If you are unable to reach us at the number above, please feel free to contact [facility] at [phone]. [id number]^AGFA_IDC^SI^ACNCCFRadiology, Radiologist, - 04/23/2024 * * *Final Report* * * DATE OF EXAM: Apr 23 2024 9:58AM [facility] 0539 - CT CHEST W [...] any questions regarding this interpretation, please call [phone]. If you are unable to reach us at the number above, please feel free to contact [facility]wood[facility] at [phone]. [id number]^AGFA_IDC^SI^ACN NOMS HealthcareCT NECK SOFT TISSUE W IVCONon 04-23-2024* * *Final Report* * * DATE OF EXAM: Apr 23 2024 9:58AM [facility] 0013 - CT NECK SOFT [...] a moderate-severe central stenosis at C4-5, unchanged. Diesel Plant Operator (topogram) images: No additional findings. IMPRESSION: [...] any questions regarding this interpretation, please call [phone]. If you are unable to reach us at the number above, please feel free to contact [facility] at [phone]. [id number]^AGFA_IDC^SI^ACNCCFRadiology, RadiologistMD - 04/23/2024 * * *Final Report* * * DATE OF EXAM: Apr 23 2024 9:58AM [facility] 0013 - CT NECK SOFT [...] a moderate-severe central stenosis at C4-5, unchanged. Diesel Plant Operator (topogram) images: No additional findings. IMPRESSION: [...] any questions regarding this interpretation, please call [phone]. If you are unable to reach us at the number above, please feel free to contact [facility] at [phone]. [id number]^AGFA_IDC^SI^ACN NOMS HealthcareCT Neck W contrast [place] [id number]: 1. STABLE POSTTREATMENT CHANGES AT LEFT BASE [...] any questions regarding this interpretation, please call [phone]. If you are unable to reach us at the number above, please feel free to contact [facility] at [phone].DIVISION OF RADIOLOGY* * *Final Report* * * DATE OF EXAM: Apr 23 2024 9:58AM [facility] 0013 - CT NECK SOFT [...] a moderate-severe central stenosis at C4-5, unchanged. Diesel Plant Operator (topogram) images: No additional findings. DIVISION OF RADIOLOGYProvider, [facility] [place] - 04/23/2024 * * *Final Report* * * DATE OF EXAM: Apr 23 2024 9:58AM [facility] 0013 - CT NECK SOFT [...] a moderate-severe central stenosis at C4-5, unchanged. Diesel Plant Operator (topogram) images: No additional findings. IMPRESSION [...] any questions regarding this interpretation, please call [phone]. If you are unable to reach us at the number above, please feel free to contact [facility] eRadiology at [phone]. [facility] HospitalComprehensive metabolic 2000 panelOrdered By: Moustapha Calderon on [id number] [Mass/Vol]4.2 g/dL3.9 - 4.9 g/dLAberdeen Proving Ground ClinicALP [Catalytic activity/Vol]48 U/L38 - 113 U/LCleveland ClinicALT [Catalytic activity/Vol]14 U/L10 - 54 U/LCleveland ClinicAnion gap [Moles/Vol]8 mmol/L8 - 15 mmol/L [facility] HospitalAST [Catalytic activity/Vol]15 U/L14 - 40 U/LCleveland [facility] Bilirubin [Mass/Vol]0.5 mg/dL0.2 - 1.3 mg/dLAberdeen Proving Ground ClinicCalcium [Mass/Vol] 9.5 mg/dL8.5 - 10.2 mg/dLAberdeen Proving Ground ClinicChloride [Moles/Vol]103 mmol/L98 - 107 mmol/LCleveland ClinicCO2 [Moles/Vol]30 mmol/L22 - 30 mmol/LCleveland Clinic Creatinine [Mass/Vol]1.32 mg/dLHigh0.73 - 1.22 mg/dLCleveland Clinic Hillcrest HospitalGFR/1.73 sq M.predicted among non-blacks MDRD (S/P/Bld) [Vol [...] eGFRmay not accurately reflect actual GFR.Glucose [Mass/Vol]146 mg/oZQuix59 - 99 mg/dLCleveland Clinic Hill[facility] Hospital Comment on above:[place] Diabetes Association (ADA) provides guidance for cutoff [...] Medical Care in Diabetes 2016, [place] Diabetes Association. Diabetes Care. 2016.39(Suppl 1). Interpretation and review of laboratory resultsAbnormalCleveland ClinicPotassium [Moles/Vol]4.3 mmol/L3.7 - 5.1 mmol/LCleveland ClinicProtein [Mass/Vol]6.6 g/dL 6.3 - 8.0 g/dLAberdeen Proving Ground ClinicSodium [Moles/Vol]141 mmol/L136 - 144 mmol/L [facility] HospitalUrea nitrogen [Mass/Vol]18 mg/dL9 - 24 mg/dLKindred HealthcareFERRITINon 28-75-3382Rxlmyixf [Mass/Vol]158.0 ng/mL30.3 - 565.7 ng/mLCleveland Sauk Centre HospitalFOLATE, SERUMon 04-61-5396Dqsbjo [Mass/Vol]12.1 ng/mL4.7 - PINF ng/mLCleveland [facility] HospitalIron and Iron binding capacity panelon 04-23-2024 Interpretation and review of laboratory resultsNormalClevelatrium health wake [facility] ClinicIron [Mass/Vol]78 ug/dL41 - 186 ug/dLCleveland Clinic Hillcrest HospitalIron binding capacity [Mass/Vol] 300 ug/dL232 - 386 ug/dLCleveland Clinic Hillcrest HospitalIron/TIBC [Molar ratio]26.0 %15.0 - 57.0 %[facility] HospitalLaboratory - Chemistry and Chemistry - challengeon 04-23-2024 Cobalamin (Vitamin B12) [Mass/Vol]349 pg/mL232 - 1245 pg/mLCCommunity Memorial Hospital Laboratory - Hematology and Cell countson 90-41-2069Bmkddoxix/100 WBC (Bld)0.9 % [facility] HealthcareEosinophils/100 WBC (Bld)1.7 %NOMS HealthcareErythrocyte distribution width (RBC) [Ratio]14.4 %11.5 - 15.0 %NOMS HealthcareHematocrit (Bld) [Volume fraction]38.4 %Low39.0 - 51.0 %[facility] CenterHemoglobin (Bld) [Mass/Vol]13.3 g/dL13.0 - 17.0 g/dLNOCenterPointe HospitalLymphocytes/100 WBC (Bld)13.3 %[facility] Health CenterMCH (RBC) [Entitic mass]31.9 pg26.0 - 34.0 pgNOCrossroads Regional Medical CenterHC (RBC) [Mass/Vol]34.6 g/dL30.5 - 36.0 g/dLPhelps HealthV (RBC) [Entitic vol] 92.1 fL80.0 - 100.0 fLSaint Joseph Health CenterMonocytes/100 WBC (Bld)8.7 %[facility] Neutrophils/100 WBC (Bld)74.8 %[facility] CenterRBC (Bld) [#/Vol]4.17 10*6/uLLow 4.20 - 6.00 m/uLUTAH VALLEY [facility] HealthcareNo Panel Informationon [id number] and review of laboratory resultsNormalCselect medical [facility], avonand [facility]ena Health Systempecimen Type: BLOOD SPECIMEN Ordering Facility: [facility] Address: [address] [place] [address] Original Ordering Provider: JOHN STEINCleveland Clinic [facility] Hospital Interpretation and review of laboratory resultsAbnormalWashington University Medical Center HealthcareRadiology Study observation (narrative)[facility] HospitalRadiology Study observation (narrative)[facility] CenterNo Panel InformationOrdered By: Ccf Provider on [id number] ClinicALL LIPID PROFILE (FASTING)on 03-04-2024 CHOL HDL RATIO4.1NOMS HealthcareComment on above:3.3 - 4.4 LOW RISK 4.4 - 7.1 AVERAGE RISK 7.1 - 11.0 MODERATE RISK >11.0 HIGH RISK Cholesterol [Mass/Vol]176 mg/dLNINF - 200 mg/dLNOOK HealthcareCholesterol in HDL [Mass/Vol]43 mg/dL40 - 60 mg/dLNOOK HealthcareComment on above:> or =60 mg/dl - LOW CARDIOVASCULAR RISK <40 mg/dl - HIGH CARDIOVASCULAR RISK Magnesium [Mass/Vol]115.8 mg/dLNOOK HealthcareComment on above:<100 mg/dl OPTIMAL 100-129 mg/dl NEAR OR ABOVE OPTIMAL 130-159 mg/dl BORDERLINE HIGH 160-189 mg/dl HIGH >190 mg/dl VERY HIGH Magnesium [Mass/Vol]17.2 mg/dLNOMS HealthcareTriglyceride [Mass/Vol]86 mg/dLNINF - 150 mg/dLNOMS HealthcareCLINISYNCNOMS HealthcareCT Chest W contrast [place] 20-02-4443HFZUNYWMVW: 1. Stable appearance of patchy groundglass opacities [...] any questions regarding this interpretation, please call [phone]. If you are unable to reach us at the number above, please feel free to contact [facility] at [phone].DIVISION OF RADIOLOGY* * *Final Report* * * DATE OF EXAM: Oct 16 2023 12:43PM [facility] 0539 - CT CHEST W [...] images: No additional findings. DIVISION OF RADIOLOGYProvider, [facility] [place] - 10/17/2023 * * *Final Report* * * DATE OF EXAM: Oct 16 2023 12:43PM [facility] 0539 - CT CHEST W [...] any questions regarding this interpretation, please call [phone]. If you are unable to reach us at the number above, please feel free to contact [facility] eRadiology at [phone]. [facility]* * *Final Report* * * DATE OF EXAM: Oct 16 2023 12:43PM [facility] 0539 - CT CHEST W [...] any questions regarding this interpretation, please call [phone]. If you are unable to reach us at the number above, please feel free to contact [facility] eRadiology at [phone]. [id number]^AGFA_IDC^SI^ACNCCFRadiology, Radiologist, - 10/17/2023 * * *Final Report* * * DATE OF EXAM: Oct 16 2023 12:43PM [facility] 0539 - CT CHEST W [...] any questions regarding this interpretation, please call [phone]. If you are unable to reach us at the number above, please feel free to contact [facility] eRadiology at [phone]. [id number]^AGFA_IDC^SI^ACN NOMS HealthcareCT Chest W contrast IVOrdered By: Ccf Provider on 10-17-2023 [facility] W Auto Differential panel (Bld)on [id number] (Bld) [#/Vol]NINFClevelatrium health [facility] ClinicBasophils/100 WBC (Bld)0.6 %[facility] Differential cell count method Nom (Bld)AutoCleveland ClinicEosinophils (Bld) [#/Vol]0.05 10*3/uLNINFCleveland Clinic Hillcrest HospitalEosinophils/100 WBC (Bld)1.6 %[facility] HospitalErythrocyte distribution width (RBC) [Ratio]13.8 %11.5 - 15.0 %[facility] HospitalHematocrit (Bld) [Volume fraction]37.9 %Low39.0 - 51.0 %[facility] Hemoglobin (Bld) [Mass/Vol]12.6 g/dLLow13.0 - 17.0 g/dLCleveland Clinic Hillcrest HospitalImmature granulocytes (Bld) [#/Vol]NINFClevelMercy Health St. Charles HospitalImmature granulocytes/100 WBC (Bld)0.6 %[facility] HospitalInterpretation and review of laboratory results AbnormalCleveland Clinic Hillcrest HospitalLymphocytes (Bld) [#/Vol]0.48 10*3/uLLowC[facility] Lymphocytes/100 WBC (Bld)15.6 %[facility] HospitalH (RBC) [Entitic mass]30.1 pg 26.0 - 34.0 pgCAshtabula County Medical CenterHC (RBC) [Mass/Vol]33.2 g/dL30.5 - 36.0 g/dL [facility] HospitalV (RBC) [Entitic vol]90.7 fL80.0 - 100.0 fLCCommunity Memorial Hospital Monocytes (Bld) [#/Vol]0.32 10*3/uLNINFCleveland Clinic Hillcrest HospitalMonocytes/100 WBC (Bld) 10.4 %[facility] HospitalNeutrophils (Bld) [#/Vol]2.19 10*3/uLC[facility] Neutrophils/100 WBC (Bld)71.2 %[facility] HospitalNucleated RBC (Bld) [#/Vol]NINF [facility] HospitalNucleated RBC/100 WBC (Bld) [Ratio]0.0 %/100 WBCCleveland Clinic Hillcrest Hospital Platelet mean volume (Bld) [Entitic vol]9.1 fL9.0 - 12.7 [facility] Platelets (Bld) [#/Vol]183 10*3/[facility] HospitalRBC (Bld) [#/Vol]4.18 10*6/uL Low4.20 - 6.00 m/[facility] HospitalWBC (Bld) [#/Vol]3.08 10*3/uLLowAdams County HospitalCT NECK SOFT TISSUE W IVCONon 10-16-2023* * *Final Report* * * DATE OF EXAM: Oct 16 2023 12:43PM [facility] 0013 - CT NECK SOFT [...] any questions regarding this interpretation, please call [phone]. If you are unable to reach us at the number above, please feel free to contact [facility] at [phone]. [id number]^AGFA_IDC^SI^ACNCCFRadiology, Radiologist, - 10/16/2023 * * *Final Report* * * DATE OF EXAM: Oct 16 2023 12:43PM [facility] 0013 - CT NECK SOFT [...] any questions regarding this interpretation, please call [phone]. If you are unable to reach us at the number above, please feel free to contact [facility] eRadiology at [phone]. [id number]^AGFA_IDC^SI^ACN NOMS HealthcareCT Neck W contrast [place] 32-36-2161HNIUFAAYZU: Primary: NI-RADS 1. Expected post-treatment changes in [...] any questions regarding this interpretation, please call [phone]. If you are unable to reach us at the number above, please feel free to contact [facility]wood[facility] at [phone].DIVISION OF RADIOLOGY* * *Final Report* * * DATE OF EXAM: Oct 16 2023 12:43PM [facility] 0013 - CT NECK SOFT [...] of the intrathoracic contents. DIVISION OF RADIOLOGYProvider, [facility] [place] - 10/16/2023 * * *Final Report* * * DATE OF EXAM: Oct 16 2023 12:43PM [facility] 0013 - CT NECK SOFT [...] any questions regarding this interpretation, please call [phone]. If you are unable to reach us at the number above, please feel free to contact [facility] eRadiology at [phone]. [facility] HospitalComprehensive metabolic 2000 panelOrdered By: Moustapha Calderon on [id number] [Mass/Vol]4.4 g/dL3.9 - 4.9 g/dLAberdeen Proving Ground ClinicALP [Catalytic activity/Vol]48 U/L38 - 113 U/LCleveland ClinicALT [Catalytic activity/Vol]13 U/L10 - 54 U/LCleveland ClinicAnion gap [Moles/Vol]11 mmol/L9 - 18 mmol/L [facility] HospitalAST [Catalytic activity/Vol]15 U/L14 - 40 U/LCleveland Clinic Bilirubin [Mass/Vol]0.5 mg/dL0.2 - 1.3 mg/dLAberdeen Proving Ground ClinicCalcium [Mass/Vol] 9.7 mg/dL8.5 - 10.2 mg/dLAberdeen Proving Ground ClinicChloride [Moles/Vol]105 mmol/L97 - 105 mmol/LCleveland ClinicCO2 [Moles/Vol]26 mmol/L22 - 30 mmol/LCleveland Clinic Creatinine [Mass/Vol]1.34 mg/dLHigh0.73 - 1.22 mg/dLAberdeen Proving Ground ClinicGFR/1.73 sq M.predicted among non-blacks MDRD (S/P/Bld) [Vol rate/Area]54 mL/min/{1.73_m2} Low- PINFCleveland ClinicComment on above:Estimated Glomerular [...] eGFRmay not accurately reflect actual GFR.Glucose [Mass/Vol]135 mg/sVTpez30 - 99 mg/dLC[facility] Comment on above:[place] Diabetes Association (ADA) provides guidance for cutoff [...] Medical Care in Diabetes 2016, [place] Diabetes Association. Diabetes Care. 2016.39(Suppl 1). Interpretation and review of laboratory resultsAbnormalCleveland ClinicPotassium [Moles/Vol]4.5 mmol/L3.7 - 5.1 mmol/LClevelatrium health wake [facility] ClinicProtein [Mass/Vol]6.7 g/dL 6.3 - 8.0 g/dLUniversity Hospitals Portage Medical Centerodium [Moles/Vol]142 mmol/L136 - 144 mmol/L [facility] HospitalUrea nitrogen [Mass/Vol]22 mg/dL9 - 24 mg/dLAcmc Healthcare System Glenbeigh ClinicNo Panel Informationon [id number] ClinicRadiology Study observation (narrative)[facility] HospitalRadiology Study observation (narrative) NOMS HealthcareCT Chest W contrast [place] 43-83-4484YIRQRAXFEP: 1. Since 03/14/2023, near complete resolution of [...] any questions regarding this interpretation, please call [phone]. If you are unable to reach us at the number above, please feel free to contact [facility] at [phone].DIVISION OF RADIOLOGY* * *Final Report* * * DATE OF EXAM: Jun 12 2023 8:15AM [facility] 0539 - CT CHEST W [...] noted are nonspecific noncalcified pulmonary nodules, with surgical sales representative larger examples detailed as follows [...] No abnormality in the imaged upper abdomen. Diesel Plant Operator (topogram) images: No additional findings. DIVISION OF RADIOLOGYProvider, [facility] [place] - 06/12/2023 * * *Final Report* * * DATE OF EXAM: Jun 12 2023 8:15AM [facility] 0539 - CT CHEST W [...] noted are nonspecific noncalcified pulmonary nodules, with surgical sales representative larger examples detailed as follows [...] No abnormality in the imaged upper abdomen. Diesel Plant Operator (topogram) images: No additional findings. IMPRESSION [...] any questions regarding this interpretation, please call [phone]. If you are unable to reach us at the number above, please feel free to contact [facility] eRadiology at [phone]. [facility] HospitalRadiology Study observation (narrative)[facility] Chest W contrast IVOrdered By: Ccf Provider on [id number] ClinicCT Chest W contrast [place] 98-30-3731RONOHDFOMU: 1. On patient's prior PET/CT from 01/29/2023, [...] report reviewed and electronically signed by: RENEA CSHULZ MD on Mar 15 2023 4:09PM EST Thank you for allowing us to participate in the care of your patient. Should there be any questions regarding this interpretation, please call [phone]. If you are unable to reach us at the number above, please feel free to contact [facility] at [phone].DIVISION OF RADIOLOGY* * *Final Report* * * DATE OF EXAM: Mar 14 2023 2:26PM [facility] 0539 - CT CHEST W [...] No abnormality in the imaged upper abdomen. Diesel Plant Operator (topogram) images: No additional findings. DIVISION OF RADIOLOGYProvider, [facility] [place] - 03/15/2023 * * *Final Report* * * DATE OF EXAM: Mar 14 2023 2:26PM [facility] 0539 - CT CHEST W [...] No abnormality in the imaged upper abdomen. Diesel Plant Operator (topogram) images: No additional findings. IMPRESSION [...] any questions regarding this interpretation, please call [phone]. If you are unable to reach us at the number above, please feel free to contact [facility] eRadiology at [phone]. [facility] Chest W contrast IVOrdered By: Ccf Provider on 03-15-2023 [facility] Chest W contrast [place] 09-08-7504Dydulxbzq Study observation (narrative)[facility] HospitalGLUCOSE, BLOOD (POC)on 43-11-2563Nnqkjrk [Mass/Vol] 124 mg/tVUxnehlbu86 - 99 mg/dLCleveland Clinic Hillcrest HospitalComment on above:Location:[facility], [address] [place] [address] , [place], [place], [address] The Accu-Chek Inform II glucose meter has [...] above situations. Interpretation and review of laboratory resultsAbnormalCPremier Health Upper Valley Medical CenterPET+CT Guidance for localization of tumor of Skull base to mid-thigh-- W 18F-FDG [place] 31-84-9843YPREUFUWZF: 1. Neck: No suspicious hypermetabolic foci. Posttreatment [...] any questions regarding this interpretation, please call [phone]. If you are unable to reach us at the number above, please feel free to contact [facility] eRadiology at [phone].DIVISION OF RADIOLOGY* * *Final Report* * * [...] SKELETON: There are no hypermetabolic osseous lesions. Diesel Plant Operator (topogram) images:No additional findings. DIVISION OF RADIOLOGYProvider, [facility] [place] - 01/29/2023 * * *Final Report* * [...] SKELETON: There are no hypermetabolic osseous lesions. Diesel Plant Operator (topogram) images:No additional findings. IMPRESSION IMPRESSION: 1. [...] any questions regarding this interpretation, please call [phone]. If you are unable to reach us at the number above, please feel free to contact [facility] eRadiology at [phone]. [facility] HospitalRadiology Study observation (narrative)[facility]+CT Guidance for localization of tumor of Skull base to mid-thigh-- W 18F-FDG IV Ordered By: Ccf Provider on 84-23-8342Zvntakzuv ClinicComprehensive metabolic 2000 panelon 59-31-5543Ixwzvar [Mass/Vol]4.1 g/dL3.9 - 4.9 g/dLCleveland Clinic [facility] ALP [Catalytic activity/Vol]60 U/L38 - 113 U/LCleveland ClinicALT [Catalytic activity/Vol]27 U/L10 - 54 U/LCleveland ClinicAnion gap [Moles/Vol]10 mmol/L9 - 18 mmol/LCleveland ClinicAST [Catalytic activity/Vol]23 U/L14 - 40 U/LCleveland ClinicBilirubin [Mass/Vol]0.5 mg/dL0.2 - 1.3 mg/dLAberdeen Proving Ground ClinicCalcium [Mass/Vol]9.5 mg/dL8.5 - 10.2 mg/dLAberdeen Proving Ground ClinicChloride [Moles/Vol]96 mmol/L Low97 - 105 mmol/LCleveland ClinicCO2 [Moles/Vol]29 mmol/L22 - 30 mmol/L [facility] HospitalCreatinine [Mass/Vol]0.96 mg/dL0.73 - 1.22 mg/dLC[facility] Estimated Glomerular Filtration Rate81 mL/min/1.73m>=60 mL/min/1.73mCleveland ClinicGlucose [Mass/Vol]105 mg/iELfts94 - 99 mg/dLCleveland Clinic Hillcrest HospitalPotassium [Moles/Vol]4.2 mmol/L3.7 - 5.1 mmol/LCleveland ClinicProtein [Mass/Vol]6.8 g/dL 6.3 - 8.0 g/dLAberdeen Proving Ground ClinicSodium [Moles/Vol]135 mmol/EEjg603 - 144 mmol/L [facility] HospitalUrea nitrogen [Mass/Vol]22 mg/dL9 - 24 mg/dLWVUMedicine Harrison Community Hospital W Auto Differential panel (Bld)on 15-77-2035Fwhkmeyfu (Bld) [#/Vol]<0.11 k/uL [facility] HospitalBasophils/100 WBC (Bld)0.4 %[facility] HospitalDifferential cell count method Nom (Bld)AutoCleveland ClinicEosinophils (Bld) [#/Vol]0.03 10*3/uL <0.46 k/uLCleveland Clinic Hillcrest HospitalEosinophils/100 WBC (Bld)1.3 %[facility] Erythrocyte distribution width (RBC) [Ratio]13.2 %11.5 - 15.0 %[facility] Hematocrit (Bld) [Volume fraction]36.2 %Low39.0 - 51.0 %[facility] Hemoglobin (Bld) [Mass/Vol]12.3 g/dLLow13.0 - 17.0 g/dLCleveland Clinic Hillcrest HospitalImmature granulocytes (Bld) [#/Vol]<0.10 k/uLCleveland Clinic Hillcrest HospitalImmature granulocytes/100 WBC (Bld)0.4 %[facility] HospitalLymphocytes (Bld) [#/Vol]0.27 10*3/uLLow1.00 - 4.00 k/uLCleveland Clinic Hillcrest HospitalLymphocytes/100 WBC (Bld)12.0 %[facility] HospitalH (RBC) [Entitic mass]30.3 pg26.0 - 34.0 pgClevelOwatonna ClinicHC (RBC) [Mass/Vol] 34.0 g/dL30.5 - 36.0 g/dLAshtabula General HospitalV (RBC) [Entitic vol]89.2 fL80.0 - 100.0 fLCleveland ClinicMonocytes (Bld) [#/Vol]0.23 10*3/uL<0.87 k/uLAberdeen Proving Ground ClinicMonocytes/100 WBC (Bld)10.2 %[facility] HospitalNeutrophils (Bld) [#/Vol]1.70 10*3/uL1.45 - 7.50 k/uLCleveland Clinic Hillcrest HospitalNeutrophils/100 WBC (Bld)75.7 %[facility] HospitalNucleated RBC (Bld) [#/Vol]<0.01 k/[facility] HospitalNucleated RBC/100 WBC (Bld) [Ratio]0.0 /100 WBCCleveland Clinic Hillcrest HospitalPlatelet mean volume (Bld) [Entitic vol]9.5 fL9.0 - 12.7 fLClevelatrium health wake forest [facility] ClinicPlatelets (Bld) [#/Vol]97 10*3/wNWqi359 - 400 k/uLCleveland Clinic Hillcrest HospitalRBC (Bld) [#/Vol]4.06 10*6/uLLow4.20 - 6.00 m/uL [facility] HospitalWBC (Bld) [#/Vol]2.25 10*3/uLLow3.70 - 11.00 k/uLCleveland Clinic Hillcre[facility] HospitalComprehensive metabolic 2000 panelon 04-10-4548Onuirgt [Mass/Vol]4.2 g/dL 3.9 - 4.9 g/dLAberdeen Proving Ground ClinicALP [Catalytic activity/Vol]69 U/L38 - 113 U/L [facility] ClinicALT [Catalytic activity/Vol]21 U/L10 - 54 U/LC[facility] Anion gap [Moles/Vol]11 mmol/L9 - 18 mmol/LCleveland ClinicAST [Catalytic activity/Vol]14 U/L14 - 40 U/LCleveland ClinicBilirubin [Mass/Vol]0.6 mg/dL0.2 - 1.3 mg/dLAberdeen Proving Ground ClinicCalcium [Mass/Vol]9.7 mg/dL8.5 - 10.2 mg/dLAberdeen Proving Ground ClinicChloride [Moles/Vol]99 mmol/L97 - 105 mmol/LCleveland ClinicCO2 [Moles/Vol]26 mmol/L22 - 30 mmol/LCleveland ClinicCreatinine [Mass/Vol]0.94 mg/dL0.73 - 1.22 mg/dLC[facility] Clinic Hillcre[facility] HospitalEstimated Glomerular Filtration Rate83 mL/min/1.73m>=60 mL/min/1.73mCleveland Sauk Centre HospitalGlucose [Mass/Vol]119 mg/sCKbij53 - 99 mg/dLCleveland Clinic Hillcre[facility] HospitalPotassium [Moles/Vol]4.1 mmol/L3.7 - 5.1 mmol/L [facility] ClinicProtein [Mass/Vol]6.7 g/dL6.3 - 8.0 g/dLAberdeen Proving Ground ClinicSodium [Moles/Vol]136 mmol/L136 - 144 mmol/LCleveland [facility] HospitalUrea nitrogen [Mass/Vol]20 mg/dL9 - 24 mg/dLWVUMedicine [facility] Hospital W Auto Differential panel (Bld)on 63-08-9166Hfhbovwhg (Bld) [#/Vol]<0.11 k/uLCleveland Clinic Hillcre[facility] HospitalBasophils/100 WBC (Bld)0.2 %[facility] HospitalDifferential cell count method Nom (Bld)AutoCleveland ClinicEosinophils (Bld) [#/Vol]0.04 10*3/uL<0.46 k/uLC[facility] Eosinophils/100 WBC (Bld)0.8 %[facility] HospitalErythrocyte distribution width (RBC) [Ratio]13.1 %11.5 - 15.0 %[facility] HospitalHematocrit (Bld) [Volume fraction]39.8 %39.0 - 51.0 %[facility] HospitalHemoglobin (Bld) [Mass/Vol]13.4 g/dL 13.0 - 17.0 g/dLCleveland Clinic Hillcrest HospitalImmature granulocytes (Bld) [#/Vol]<0.10 k/uL [facility] HospitalImmature granulocytes/100 WBC (Bld)0.4 %[facility] Lymphocytes (Bld) [#/Vol]0.40 10*3/uLLow1.00 - 4.00 k/uLC[facility] Lymphocytes/100 WBC (Bld)7.8 %[facility] HospitalH (RBC) [Entitic mass]30.3 pg 26.0 - 34.0 pgCAshtabula County Medical CenterHC (RBC) [Mass/Vol]33.7 g/dL30.5 - 36.0 g/dL [facility] HospitalV (RBC) [Entitic vol]90.0 fL80.0 - 100.0 fLCCommunity [facility] Monocytes (Bld) [#/Vol]0.34 10*3/uL<0.87 k/uLCleveland Clinic Hillcre[facility] HospitalMonocytes/100 WBC (Bld)6.6 %[facility] HospitalNeutrophils (Bld) [#/Vol]4.31 10*3/uL1.45 - 7.50 k/uL [facility] HospitalNeutrophils/100 WBC (Bld)84.2 %[facility] HospitalNucleated RBC (Bld) [#/Vol]<0.01 k/uLCleveland Clinic Hillcre[facility] HospitalNucleated RBC/100 WBC (Bld) [Ratio]0.0 /100 WBCCleveland Clinic Hillcrest HospitalPlatelet mean volume (Bld) [Entitic vol]9.4 fL9.0 - 12.[address] Charles HospitalPlatelets (Bld) [#/Vol]198 10*3/uL150 - 400 k/uLCleveland Clinic Hillcrest HospitalRBC (Bld) [#/Vol]4.42 10*6/uL4.20 - 6.00 m/uLCleveland Clinic Hillcre[facility] HospitalWBC (Bld) [#/Vol]5.12 10*3/uL3.70 - 11.00 k/uLCleveland Clinic Hill[facility] HospitalComprehensive metabolic 2000 panelon 89-52-6834Wyhrzju [Mass/Vol]4.4 g/dL3.9 - 4.9 g/dLAberdeen Proving Ground ClinicALP [Catalytic activity/Vol]70 U/L38 - 113 U/LCleveland ClinicALT [Catalytic activity/Vol]22 U/L10 - 54 U/LCleveland ClinicAnion gap [Moles/Vol]8 mmol/LLow9 - 18 mmol/LCleveland ClinicAST [Catalytic activity/Vol]15 U/L14 - 40 U/L [facility] HospitalBilirubin [Mass/Vol]0.4 mg/dL0.2 - 1.3 mg/dLC[facility] Calcium [Mass/Vol]9.8 mg/dL8.5 - 10.2 mg/dLCleveland Clinic Hillcre[facility] HospitalChloride [Moles/Vol] 99 mmol/L97 - 105 mmol/LCleveland ClinicCO2 [Moles/Vol]28 mmol/L22 - 30 mmol/L [facility] HospitalCreatinine [Mass/Vol]0.83 mg/dL0.73 - 1.22 mg/dLC[facility] Estimated Glomerular Filtration Rate90 mL/min/1.73m>=60 mL/min/1.73mCleveland [facility] HospitalGlucose [Mass/Vol]125 mg/tMFgke40 - 99 mg/dLCleveland Clinic Hillcre[facility] HospitalPotassium [Moles/Vol]4.1 mmol/L3.7 - 5.1 mmol/LCleveland ClinicProtein [Mass/Vol]6.8 g/dL 6.3 - 8.0 g/dLAberdeen Proving Ground ClinicSodium [Moles/Vol]135 mmol/KTti055 - 144 mmol/L [facility] HospitalUrea nitrogen [Mass/Vol]28 mg/dLHigh9 - 24 mg/dLC[facility] PET+CT Guidance for localization of tumor of Skull base to mid-thigh-- W 18F-FDG [place] 82-51-4405ZPCILEQBTW: 1. NECK: * Intensely FDG avid left [...] any questions regarding this interpretation, please call [phone]. If you are unable to reach us at the number above, please feel free to contact [facility] at [phone].DIVISION OF RADIOLOGY* * *Final Report* * * [...] age-related degenerative changes. No destructive osseous lesions. Diesel Plant Operator (topogram) images: No additional findings. DIVISION OF RADIOLOGYProvider, [facility] [place] - 08/28/2022 * * *Final Report* * [...] age-related degenerative changes. No destructive osseous lesions. Diesel Plant Operator (topogram) images: No additional findings. IMPRESSION [...] any questions regarding this interpretation, please call [phone]. If you are unable to reach us at the number above, please feel free to contact [facility] eRadiology at [phone]. [facility] HospitalPET+CT Guidance for localization of tumor of Skull base to mid-thigh-- W 18F-FDG IVOrdered By: Ccf Provider on [id number] GLUCOSE, BLOOD (POC)on 61-78-3959Sdomgqm [Mass/Vol]137 mg/tRIctnsotx68 - 99 mg/dLCleveland Clinic Hillcrest HospitalComment on above:Location:[facility], [address] [place] [address] , [place], [place], [facility] The Accu-Chek Inform II glucose meter [...] above situations. Interpretation and review of laboratory resultsAbnormalCPremier Health Upper Valley Medical CenterPET+CT Guidance for localization of tumor of Skull base to mid-thigh-- W 18F-FDG [place] 45-23-8569Xslfjdzhr Study observation (narrative)[facility] CBC W Auto Differential panel (Bld)on 45-10-7117Gwqfuqski (Bld) [#/Vol]0.05 10*3/uL<0.11 k/uLCleveland Clinic Hillcre[facility] HospitalBasophils/100 WBC (Bld)0.8 %[facility] Differential cell count method Nom (Bld)AutoCleveland [facility] Centre HospitalEosinophils (Bld) [#/Vol]0.05 10*3/uL<0.46 k/uLC[facility] Clinic [facility] HospitalEosinophils/100 WBC (Bld)0.8 % [facility] HospitalErythrocyte distribution width (RBC) [Ratio]13.2 %11.5 - 15.0 % [facility] HospitalHematocrit (Bld) [Volume fraction]43.8 %39.0 - 51.0 %[facility] HospitalHemoglobin (Bld) [Mass/Vol]14.7 g/dL13.0 - 17.0 g/dLC[facility] Immature granulocytes (Bld) [#/Vol]<0.10 k/uLCleveland Clinic Hillcre[facility] HospitalImmature granulocytes/100 WBC (Bld)0.3 %[facility] HospitalLymphocytes (Bld) [#/Vol]1.55 10*3/uL1.00 - 4.00 k/uLCleveland Clinic Hillcre[facility] HospitalLymphocytes/100 WBC (Bld)25.7 %[facility] HospitalH (RBC) [Entitic mass]30.6 pg26.0 - 34.0 pgCAshtabula County Medical CenterHC (RBC) [Mass/Vol]33.6 g/dL30.5 - 36.0 g/dLCleveland Clinic Hillcre[facility] HospitalMCV (RBC) [Entitic vol]91.3 fL80.0 - 100.0 fLCleveland ClinicMonocytes (Bld) [#/Vol]0.51 10*3/uL<0.87 k/uL [facility] ClinicMonocytes/100 WBC (Bld)8.5 %[facility] ClinicNeutrophils (Bld) [#/Vol]3.85 10*3/uL1.45 - 7.50 k/uLCleveland Clinic Hillcrest HospitalNeutrophils/100 WBC (Bld)63.9 %[facility] HospitalNucleated RBC (Bld) [#/Vol]<0.01 k/uLC[facility] Clinic [facility]cre[facility] HospitalNucleated RBC/100 WBC (Bld) [Ratio]0.0 /100 WBCCleveland Clinic Hillcrest HospitalPlatelet mean volume (Bld) [Entitic vol]9.4 fL9.0 - 12.7 fLClevelatrium health wake forest [facility] ClinicPlatelets (Bld) [#/Vol]340 10*3/uL150 - 400 k/uLCleveland Clinic Hillcrest HospitalRBC (Bld) [#/Vol]4.80 10*6/uL4.20 - 6.00 m/uLCleveland Clinic Hillcre[facility] HospitalWBC (Bld) [#/Vol]6.03 10*3/uL3.70 - 11.00 k/uLC[facility] Clinic [facility] HospitalComprehensive metabolic 2000 panelon 50-29-4345Zgszgrs [Mass/Vol]4.6 g/dL 3.9 - 4.9 g/dLAberdeen Proving Ground ClinicALP [Catalytic activity/Vol]66 U/L38 - 113 U/L [facility] ClinicALT [Catalytic activity/Vol]16 U/L10 - 54 U/LC[facility] Anion gap [Moles/Vol]8 mmol/LLow9 - 18 mmol/LCleveland ClinicAST [Catalytic activity/Vol]19 U/L14 - 40 U/LCleveland ClinicBilirubin [Mass/Vol]0.5 mg/dL0.2 - 1.3 mg/dLAberdeen Pro[facility] Ground ClinicCalcium [Mass/Vol]10.0 mg/dL8.5 - 10.2 mg/dLAberdeen [facility] ClinicChloride [Moles/Vol]102 mmol/L97 - 105 mmol/LCleveland ClinicCO2 [Moles/Vol]30 mmol/L22 - 30 mmol/LCleveland ClinicCreatinine [Mass/Vol]0.97 mg/dL0.73 - 1.22 mg/dLC[facility] Clinic Hillcre[facility] HospitalEstimated Glomerular Filtration Rate80 mL/min/1.73m>=60 mL/min/1.73mCleveland ClinicGlucose [Mass/Vol]101 mg/hSJycm94 - 99 mg/dLCleveland Clinic Hillcre[facility] HospitalPotassium [Moles/Vol]4.5 mmol/L3.7 - 5.1 mmol/L [facility]Protein [Mass/Vol]7.5 g/dL6.3 - 8.0 g/dLUniversity Hospitals Portage Medical Centerodium [Moles/Vol]140 mmol/L136 - 144 mmol/LCleveland ClinicUrea nitrogen [Mass/Vol]18 mg/dL9 - 24 mg/dLC[facility] Clinic Hillcrest HospitalPOINT OF CARE GLUCOSEon 93-31-5254Avcvoli [Mass/Vol]149 mg/dLCritically wize48-854BtoKettering Health TroyComment on above: Performed By: #### POCGLUC #### [facility] [address] [place] [address] Dr. Mikayla Blandon 04-09-9443Okbprjcth From: Violet Guidry LPN To: GSN - Clinical; Sent: 07/31/2022 13:14:12 EST Show up: 06/17/2024 07:00:00 EST Subject: colonoscopy recall Due Date/Time: 07/18/2024 07:00:00 EST Reminder/Recall Patient is due for colonoscopy 07/18/2024 due to history of tubular adenoma. Correction, due 07/18/2025.[facility]CB AUTO DIFFon [id number] #0.0 103/ulNormal0.0-0.1K[facility]tering Health TroyComment on above: Performed By: #### CBC #### [facility] [address] [place] [address] Dr. Mikayla GalanBasophils/100 WBC (Bld)0.4 %Normal0.2-2.0The [facility] Comment on above:Performed By: #### CBC #### [facility] [address] [address] [address] Mikayla Amor #0.1 103/ulNormal0.0-0.7The [facility] HospitalComment on above: Performed By: #### CBC #### [facility] [address] [place] [address] Dr. Mikayla Gaonaosinophils/100 WBC (Bld)1.5 %Normal0.9-7.0The [facility] Comment on above:Performed By: #### CBC #### [facility] [address] [place] [address] Dr. Mikayla Gaonarythrocyte distribution width (RBC) [Ratio]13.2 %Oxycqk60.0-15.0 [facility] TroyComment on above:Performed By: #### CBC #### [facility] [address] [place] [address] Dr. Mikayla GalanHematocrit (Bld) [Volume fraction]41.7 %Critically low42.0-54.0 [facility] TroyComment on above:Performed By: #### CBC #### [facility] [address] [place] [address] Dr. Mikayla GalanHemoglobin (Bld) [Mass/Vol]13.9 g/dLCritically low14.0-18.0K[facility] Health TroyComment on above:Performed By: #### CBC #### [facility] [address] [place] [address] Dr. Mikayla Eden #0.02 10e3/ulNormal0.00-0.03The [facility] HospitalComment on above:Performed By: #### CBC #### [facility] [address] [place] [address] Dr. Mikayla Eden %0.4 %Normal0.0-0.5The [facility] HospitalComment on above: Performed By: #### CBC #### [facility] [address] [place] [address] Dr. Mikayla Domingo #1.1 103/ulCritically low1.2-3.8The [facility] Comment on above:Performed By: #### CBC #### [facility] [address] [address] [address] Mikayla Leónmphocytes/100 WBC (Bld)24.7 %Xapowi42.5-60.0The [facility] HospitalComment on above:Performed By: #### CBC #### [facility] [address] [address] [address] Mikayla LiuUAL DIFF REQNONormalThe [facility] HospitalComment on above: Performed By: #### CBC #### [facility] [address] [place] [address] Dr. Mikayla Castillo (RBC) [Entitic mass]30.5 nmEfkawb10.9-34.0The [facility] HospitalComment on above:Performed By: #### CBC #### [facility] [address] [place] [address] Dr. Mikayla Castillo (RBC) [Mass/Vol]33.3 g/tZPuxpsd44.9-35.2The [facility] HospitalComment on above:Performed By: #### CBC #### [facility] [address] [place] [address] Dr. Mikayla Castillo (RBC) [Entitic vol]91.4 qTBleqrb89.0-94.0The [facility] HospitalComment on above:Performed By: #### CBC #### [facility] [address] [place] [address] Dr. Mikyala Davidson #0.4 103/ulNormal0.3-0.8The [facility] HospitalComment on above:Performed By: #### CBC #### [facility] [address] [place] [address] Dr. Mikayla Del Rioocytes/100 WBC (Bld)8.4 %Normal1.7-12.0The [facility] Comment on above:Performed By: #### CBC #### [facility] [address] [place] [address] Dr. Mikayla Marr #2.9 103/ulNormal1.4-6.5The [facility] HospitalComment on above:Performed By: #### CBC #### [facility] [address] [place] [address] Dr. Mkiayla GalanNeutrophils/100 WBC (Bld)64.6 %Afchcg25.0-75.0[facility] Health TroyComment on above:Performed By: #### CBC #### [facility] [address] [place] [address] Dr. Mikayla GalanPlatelet mean volume (Bld) [Entitic vol]9.5 fLNormal9.5-13.5The [facility] HospitalComment on above:Performed By: #### CBC #### [facility] [address] [place] [address] Dr. Mikayla GalanPLT293 103/vvOzfnfl118-167Aue [facility] HospitalComment on above: Performed By: #### CBC #### [facility] [address] [place] [address] Dr. Mikayla GalanRBC4.56 106/ulCritically low4.70-6.10The [facility] HospitalComment on above:Performed By: #### CBC #### [facility] [address] [place] [address] Dr. Mikayla GalanWBC4.5 103/ulNormal4.0-11.0The [facility] HospitalComment on above: Performed By: #### CBC #### [facility] [address] [place] [address] Dr[address] CONon [id number] NECK [facility] CONEXAMINATION: CT NECK [facility] CON HISTORY: Tongue carcinoma follow-up COMPARISON: CTA [...] Electronically authenticated by: CHAU JUNG Date: 2022-07-27 13:04NoUniversity Hospitals Ahuja Medical CenterCovid-19 PCR (CVDTBH)on 00-33-2405FRDA-CoV-2 (COVID-19) RNA IRIS+probe Ql (Unsp spec)Not detectedNormalNOT DETECTEDThe [facility] Comment on above:Result Comment: This test is not yet approved or cleared by the [place] FDA. When there are no FDA-approved or cleared tests available, and other criteria are met, FDA can make tests available under an emergency access mechanism called an Emergency Use Authorization (EUA). The EUA for this test is supported by the Electronic Commerce Specialist of Health and Human Service's (HHS's) declaration [...] consistent with SARS-CoV-2.Performed By: #### POCGLUC #### [facility] [address] [address] [address] Mikayla GalanPROF CHEM 8 (BAS METB)on 89-00-2663Lemqv gap [Moles/Vol]10.2 mmol/LNormalThe [facility] HospitalComment on above:Performed By: #### BMP #### [facility] [address] [address] [address] Mikayla GalanCalcium [Mass/Vol]9.2 mg/dLNormal8.5-10.1The [facility] Comment on above:Performed By: #### BMP #### [facility] [address] [place] [address] Dr. Mikayla GalanChloride [Moles/Vol]103 mmol/EWiwgzo19-539Obf [facility] Comment on above:Performed By: #### BMP #### [facility] [address] [place] [address] Dr. Mikayla GalanCO2 [Moles/Vol]31.3 mmol/KYquyek00.0-32.0The [facility] Comment on above:Performed By: #### BMP #### [facility] [address] [place] [address] Dr. Mikayla GalanCreatinine [Mass/Vol]0.98 mg/dLNormal0.70-1.30The [facility] HospitalComment on above:Performed By: #### BMP #### [facility] [address] [place] [address] Dr. Mikayla GaonaGFR-AF THAI>60Normal>=60The [facility] HospitalComment on above:Performed By: #### BMP #### [facility] [address] [place] [address] Dr. Mikayla GaonaGFR-NON AF THAI>60Normal>=60The [facility] HospitalComment on above:Performed By: #### BMP #### [facility] [address] [place] [address] Dr. Mikayla GalanGlucose [Mass/Vol]133 mg/dLCritically wpdb15-013Ekt Bull HospitalComment on above:Performed By: #### BMP #### [facility] [address] [address] [address] Mikayla GalanPotassium [Moles/Vol]4.5 mmol/LNormal3.5-5.1[facility] Comment on above:Performed By: #### BMP #### [facility] [address] [address] [address] Mikayla GalanSodium [Moles/Vol]140 mmol/KTftpbj398-591Jjw [facility] Comment on above:Performed By: #### BMP #### [facility] [address] [place] [address] Dr. Mikayla GalanUrea nitrogen [Mass/Vol]21.0 mg/dLCritically high7.0-18.0K[facility] Health TroyComment on above:Performed By: #### BMP #### [facility] [address] [place] [address] Dr. Mikayla GalanUrea nitrogen/Creatinine [Mass ratio]21.4 mg/mgNoUniversity Hospitals Ahuja Medical CenterComment on above:Performed By: #### BMP #### [facility] [address] [place] [address] Dr. Mikayla GalanPROTIMEon 92-97-9200TLL Coag (PPP) [Relative time]1.04 {INR} NormalKettering Health TroyComment on above:Performed By: #### PT, PTT #### [facility] [address] [place] [address] Dr. Mikayla Su GUIDELINESSEE BELOWDayton Osteopathic HospitalComment on above:Result Comment: DESIRED INR: 2.0 - 3.0 CONDITIONS NOT LISTED BELOW 2.5 - 3.5 FOR PROSTHETIC HEART VALVE REPLACEMENT 2.5 - 3.5 RECURRENT THROMBOSIS Performed By: #### PT, PTT #### [facility] [address] [place] [address] Dr. Mikayla GalanPT Coag (PPP) [Time]11.0 sNormal9.0-11.6ThProMedica Toledo Hospital Comment on above:Performed By: #### PT, PTT #### [facility] [address] [place] [address] Dr. Mikayla GalanPTBanner Behavioral Health Hospital 11-25-6418oDQG Coag (Bld) [Time]28.6 cCqopfc32.3-36.2The [facility] HospitalComment on above:Performed By: #### POCGLUC #### [facility] [address] [place] [address] Dr. Mikayla GalanPathology Noteon 36-28-7601Nbhthpcrg Note [id number]#1.00CD:127NormOhio State East HospitalOutside Colonoscopyon 57-12-4589Xbtcdag Colonoscopy [id number]#1.00CD:127NoUC [facility] [place] HospitalPOINT OF CARE GLUCOSEon 29-40-9461Scwlkdf [Mass/Vol]94 mg/cVJasric34-268 The [facility] HospitalComment on above:Performed By: #### POCGLUC #### [facility] [address] [place] [address] Dr. Mikayla GalanLab Reportson 58-79-7499Qiz Reports [id number]#1.00CD:127NoUC [facility] [place] HospitalCovid-19 PCR (CVDTBH)on 42-42-7171TAKE-CoV-2 (COVID-19) RNA IRIS+probe Ql (Unsp spec)Not detectedNormalNOT DETECTEDThe [facility] HospitalComment on above: Result Comment: This test is not yet approved or cleared by the [place] FDA. When there are no FDA-approved or cleared tests available, and other criteria are met, FDA can make tests available under an emergency access mechanism called an Emergency Use Authorization (EUA). The EUA for this test is supported by the [place] of Health and Human Service's (HHS's) declaration [...] consistent with SARS-CoV-2.Performed By: #### POCGLUC #### [facility] [address] [place] [address] Dr. Mikayla Lawrence for Procedure/Surgeryon [id number] for Procedure/[id number]#[id number]:127[facility]US THYROIDon [id number] THYROIDEXAMINATION: US THYROID HISTORY: Goiter COMPARISON: No [...] Electronically authenticated by: QUANG JOHNSON Date: 2022-06-11 07:17[facility] HospitalProvider Letteron [id number] Letter May 15, 2022 [address] [place] [phone] MANISH ROOT 1945 Dear Manish , We have been trying to reach you with no success. It is important that you return our call regarding your referral from Dr. Nelson upon receiving this letter. Also, at the time of your call, please provide us with your current information. Thank you for your prompt attention to this matter. Sincerely, General Surgery [phone] NorthCBC AUTO DIFFon [id number] #0.0 103/ulNormal0.0-0.1The [facility] HospitalComment on above:Performed By: #### CBC #### [facility] [address] [address] [address] Mikayla GalanBasophils/100 WBC (Bld)0.6 %Normal0.2-2.0The [facility] Comment on above:Performed By: #### CBC #### [facility] [address] [place] [address] Dr. Mikayla Amor #0.1 103/ulNormal0.0-0.7The [facility] HospitalComment on above: Performed By: #### CBC #### [facility] [address] [place] [address] Dr. Mikayla Gaonaosinophils/100 WBC (Bld)1.4 %Normal0.9-7.0The [facility] Comment on above:Performed By: #### CBC #### [facility] [address] [place] [address] Dr. Mikayla Gaonarythrocyte distribution width (RBC) [Ratio]12.6 %Ztaenv64.0-15.0 The [facility] HospitalComment on above:Performed By: #### CBC #### [facility] [address] [place] [address] Dr. Mikayla GalanHematocrit (Bld) [Volume fraction]41.8 %Critically low42.0-54.0 The [facility] HospitalComment on above:Performed By: #### CBC #### [facility] [address] [place] [address] Dr. Mikayla GalanHemoglobin (Bld) [Mass/Vol]13.9 g/dLCritically low14.0-18.0The [facility] HospitalComment on above:Performed By: #### CBC #### [facility] [address] [place] [address] Dr. Mikayla Eden #0.03 10e3/ulNormal0.00-0.03The [facility] HospitalComment on above:Performed By: #### CBC #### [facility] [address] [place] [address] Dr. Mikayla Eden %0.6 %Critically high0.0-0.5The [facility] HospitalComment on above:Performed By: #### CBC #### [facility] [address] [address] [address] Mikayla Domingo #1.0 103/ulCritically low1.2-3.8The [facility] Comment on above:Performed By: #### CBC #### [facility] [address] [address] [address] Mikayla Leónmphocytes/100 WBC (Bld)19.9 %Critically low20.5-60.0The [facility] HospitalComment on above:Performed By: #### CBC #### [facility] [address] [place] [address] Dr. Mikayla Teixeira DIFF REQNONormalThe [facility] HospitalComment on above: Performed By: #### CBC #### [facility] [address] [place] [address] Dr. Mikayla Castillo (RBC) [Entitic mass]31.0 rdBtxygx26.9-34.0The [facility] HospitalComment on above:Performed By: #### CBC #### [facility] [address] [place] [address] Dr. Mikayla Castillo (RBC) [Mass/Vol]33.3 g/cNTaheub45.9-35.2The [facility] HospitalComment on above:Performed By: #### CBC #### [facility] [address] [place] [address] Dr. Mikayla Castillo (RBC) [Entitic vol]93.3 gAOfpiwb48.0-94.0The [facility] HospitalComment on above:Performed By: #### CBC #### [facility] [address] [address] [address] Mikayla Davidson #0.5 103/ulNormal0.3-0.8The [facility] HospitalComment on above:Performed By: #### CBC #### [facility] [address] [place] [address] Dr. Mikayla Del Rioocytes/100 WBC (Bld)8.9 %Normal1.7-12.0The [facility] Comment on above:Performed By: #### CBC #### [facility] [address] [address] [address] Mikayla Marr #3.5 103/ulNormal1.4-6.5The [facility] HospitalComment on above:Performed By: #### CBC #### [facility] [address] [address] [address] Mikayla Nevilleutrophils/100 WBC (Bld)68.6 %Xuibud54.0-75.0The [facility] HospitalComment on above:Performed By: #### CBC #### [facility] [address] [place] [address] Dr. Mikayla Petersenlet mean volume (Bld) [Entitic vol]9.6 fLNormal9.5-13.5The [facility] HospitalComment on above:Performed By: #### CBC #### [facility] [address] [place] [address] Dr. Mikayla GalanPLT280 103/mrEksdzn114-774Zix [facility] HospitalComment on above: Performed By: #### CBC #### [facility] [address] [place] [address] Dr. Mikayla GalanRBC4.48 106/ulCritically low4.70-6.10The [facility] HospitalComment on above:Performed By: #### CBC #### [facility] [address] [place] [address] Dr. Mikayla GalanWBC5.1 103/ulNormal4.0-11.0The [facility] HospitalComment on above: Performed By: #### CBC #### [facility] [address] [place] [address] Dr. Mikayla GalanGLYCOHEMOGLOBIN A1Con [id number] RECOMMENDATIONSEE BELOWNormal [facility] TroyCompaul [facility] on above:Result Comment: ADA RECOMMENDED LIMIT 4.0 - 6.0 ADA THERAPEUTIC TARGET < 7.0 ACTION SUGGESTED > 7.0Performed By: #### A1C #### [facility] [address] [place] [address] Dr. Mikayla aGlanGlucose [Mass/Vol]183 mg/dLNormalThe [facility] HospitalComment on above:Performed By: #### A1C #### [facility] [address] [place] [address] Dr. Mikayla GalanHbA1c (Bld) [Mass fraction]8.0 %Critically high4.5-6.2The [facility] HospitalComment on above:Performed By: #### A1C #### [facility] [address] [place] [address] Dr. Mikayla GalanPROF 14(COMP METB)on [id number] [Mass/Vol]3.8 g/dLNormal 3.4-5.0The [facility] HospitalComment on above:Performed By: #### CMP #### [facility] [address] [place] [address] Dr. Mikayla GalanAlbumin/Globulin [Mass ratio]1.2 {ratio}NormalThe [facility] HospitalComment on above:Performed By: #### CMP #### [facility] [address] [place] [address] Dr. Mikayla PeñaP [Catalytic activity/Vol]111 U/TBwgzoa86-914Fwb [facility] HospitalComment on above:Performed By: #### CMP #### [facility] [address] [place] [address] Dr. Mikayla Esparza [Catalytic activity/Vol]50 U/YEvujlh26-00Xaj [facility] HospitalComment on above:Performed By: #### CMP #### [facility] [address] [place] [address] Dr. Mikayla Vergara gap [Moles/Vol]11.5 mmol/LNormalThe [facility] Comment on above:Performed By: #### CMP #### [facility] [address] [place] [address] Dr. Mikayla GalanAST [Catalytic activity/Vol]27 U/TOqiixc96-18Vex [facility] HospitalComment on above:Performed By: #### CMP #### [facility] [address] [place] [address] Dr. Mikayla GalanBilirubin [Mass/Vol]0.5 mg/dLNormal0.2-1.0The [facility] Comment on above:Performed By: #### CMP #### [facility] [address] [place] [address] Dr. Mikayla GalanCalcium [Mass/Vol]9.0 mg/dLNormal8.5-10.1The [facility] Comment on above:Performed By: #### CMP #### [facility] [address] [address] [address] Mikayla GalanChloride [Moles/Vol]101 mmol/OFquqwx92-761Uge [facility] Comment on above:Performed By: #### CMP #### [facility] [address] [place] [address] Dr. Mikayla GalanCO2 [Moles/Vol]27.7 mmol/OZuzrmh56.0-32.0[facility] Comment on above:Performed By: #### CMP #### [facility] [address] [place] [address] Dr. Mikayla GalanCreatinine [Mass/Vol]1.17 mg/dLNormal0.70-1.30The [facility] HospitalComment on above:Performed By: #### CMP #### [facility] [address] [place] [address] Dr. Mikayla GaonaGFR-AF THAI>60Normal>=60The [facility] HospitalComment on above:Performed By: #### CMP #### [facility] [address] [place] [address] Dr. Mikayla GaonaGFR-NON AF THAI=60Normal>=60[facility] TroyComment on above:Performed By: #### CMP #### [facility] [address] [place] [address] Dr. Mikayla GalanGlobulin (S) [Mass/Vol]3.3 g/dLNormalThe [facility] HospitalComment on above:Performed By: #### CMP #### [facility] [address] [place] [address] Dr. Mikayla GalanGlucose [Mass/Vol]233 mg/dLCritically qoqq71-052QbwKettering Health TroyComment on above:Performed By: #### CMP #### [facility] [address] [address] [address] Mikayla GalanPotassium [Moles/Vol]4.2 mmol/LNormal3.5-5.1[facility] Comment on above:Performed By: #### CMP #### [facility] [address] [address] [address] Mikayla GalanProtein [Mass/Vol]7.1 g/dLNormal6.4-8.2[facility] Comment on above:Performed By: #### CMP #### [facility] [address] [address] [address] Mikayla GalanSodium [Moles/Vol]136 mmol/JSpexmh694-346UdvKettering Health Troy Comment on above:Performed By: #### CMP #### [facility] [address] [address] [address] Mikayla GalanUrea nitrogen [Mass/Vol]15.0 mg/dLNormal7.0-18.0[facility] TroyComment on above:Performed By: #### CMP #### [facility] [address] [address] [address] Mikayla Rinaldi nitrogen/Creatinine [Mass ratio]12.8 mg/mgNormalThProMedica Toledo HospitalComment on above:Performed By: #### CMP #### [facility] [address] [address] [address] Mikayla GalnaPhysicicat Referralon [id number] Referral [id number]:127[facility] Vital Signs Date TimeVital SignValuePerforming BywncqkplEpkygllz33-82-2784 11:43-0400Body .2 cmMason Johnson MD Work Phone: NOOK Ehgvshcwap30-34-8574 11:43-0400Body mass index (BMI) [Ratio]30.85 kg/s5GdormmMason oJhnson MD Work Phone: 1(930)201-[address] [place], [place] [address]Sakaxyydxv02-48-0170 11:43-0400Body tqtidh93.36 kgDalaron Johnson MD Work Phone: 1(554)[facility]-[address] [place], [place] [address]Msdnlolglk36-24-5168 11:43-0400Diastolic blood mm[Hg]Mason Johnson MD Work Phone: 1(847)[facility]-[address] [place], [place] [address]Xbkfyiavbs01-72-8028 11:43-0400Heart rate70 /min Mason Johnson MD Work Phone: 1(143)[facility] [place], [place] [address]Dimtjvbvvm50-19-2278 11:43-2150TzT0% (BldA) [Mass fraction]97 %Mason Johnson MD Work Phone: 1(997)[facility] [place], [place] [address]Mcfbysycnv24-53-4684 11:43-0400Systolic blood zctzglyf816 mm[Hg]Mason Johnson MD Work Phone: 1(212)[facility] [place], [place] [address]Atztlrbrat40-83-6520 08:00-0400Body .2 cmSerene Morales MD Work Phone: 1(995)[address] [place], [place] 3162710-14-2025 08:00-0400Body mass index (BMI) [Ratio]31.32 kg/e3IvsfbpSerene Morales MD Work Phone: 1(216)[address] [place], [place] 3162710-14-2025 08:00-0400Body ncfart79.72 kgSerene Morales MD Work Phone: [phone])[address] [place], [place] 3162710-14-2025 08:00-0400Diastolic blood sijkopjv74 mm[Hg]Serene Morales MD Work Phone: 1(421)[address] [place], [place] 316[address]10-14-2025 08:00-0400Heart rate74 /min Serene Morales MD Work Phone: [phone])[address] [place], [place] [address] CenterMoarpswlvt43-79-8313 08:00-0400Systolic blood ihwuxaoe044 mm[Hg]Serene Morales MD Work Phone: 1(905)[facility]85[address] CenterFidomschca84-27-4723 10:56-0400Body .2 cmDalaron Johnson MD Work Phone: 1(153)[facility] [place], [place] [address]Rnlyemblyu95-46-4707 10:56-0400Body mass index (BMI) [Ratio]31.32 kg/r0PlnmptMason Johnson MD Work Phone: [facility] HospitalHchgwzpbex45-86-3751 10:56-0400Body oracmn64.72 kgMason Johnson MD Work Phone: [facility] HospitalHdwivvhtny04-24-2542 10:56-0400Diastolic blood tbbaezcc20 mm[Hg]Mason Johnson MD Work Phone: [facility] CenterHfqxgkxhcw24-43-6640 10:56-0400Heart rate64 /min Mason Johnson MD Work Phone: [facility] CenterDfnwmyuror85-40-4730 10:56-9183AhK9% (BldA) [Mass fraction]97 %Mason Johnson MD Work Phone: [facility] HospitalNyvyxegyfb12-12-3767 10:56-0400Systolic blood ifhanowz083 mm[Hg]Mason Johnson MD Work Phone: [facility] CenterZcacytgpsd66-70-9960 08:10-0400Body lmaqkk019.2 cmSerene Morales MD Work Phone: [facility] CenterMsgmoebind93-61-4328 08:10-0400Body mass index (BMI) [Ratio]31.48 kg/z9AnpiyvSerene Morales MD Work Phone: [facility] CenterNjghxvjgph29-47-8146 08:10-0400Body aocxco28.17 kgSerene Morales MD Work Phone: [facility] CenterJxcfaxcruu96-51-1517 08:10-0400Diastolic blood mwalweqk32 mm[Hg]Serene Morales MD Work Phone: [facility] CenterUuvrxckrvd61-95-3494 08:10-0400Heart rate57 /min Serene Morales MD Work Phone: [facility] CenterRokqmuwuvg84-14-8601 08:10-0400Systolic blood mm[Hg]Serene Morales MD Work Phone: [facility] CenterCwtazcsdqm29-13-9555 09:01-0400Body .2 cmMason Johnson MD Work Phone: [facility] HospitalEixopktxff38-04-8249 09:01-0400Body mass index (BMI) [Ratio]31.17 kg/c6EyeofwMason Johnson MD Work Phone: [facility] HospitalRmbgdhybhb48-24-5981 09:01-0400Body poqzog11.27 kgMason Johnson MD Work Phone: [facility] HospitalVsfzynkysf65-84-7757 09:01-0400Diastolic blood zfzthoau73 mm[Hg]Mason Johnson MD Work Phone: [facility] HospitalYiatuiluap29-67-5122 09:01-0400Heart rate60 /min Mason Johnson MD Work Phone: [phone] HospitalMaacifnkvp36-39-0315 09:01-8041NaQ1% (BldA) [Mass fraction]96 %Mason Johnson MD Work Phone: [phone] HospitalEaskwbjqvl24-55-3826 09:01-0400Systolic blood wjyoclgi985 mm[Hg]Mason Johnson MD Work Phone: [facility] HospitalHmytyaqmzf49-24-5435 09:31-0400Body lxykbh793.2 cmMason Johnson MD Work Phone: [phone] HospitalIqqrvbiusy97-27-4551 09:31-0400Body mass index (BMI) [Ratio]31.48 kg/z4ZtwqqyMason Johnson MD Work Phone: [phone] HospitalLiedclqpir76-72-4157 09:31-0400Body .17 kgMason Johnson MD Work Phone: [facility] HospitalGutkkmuntr60-89-1131 09:31-0400Diastolic blood mm[Hg]Mason Johnson MD Work Phone: [facility] HospitalFxlrxoraeh49-48-6638 09:31-0400Heart rate58 /min Mason Johnson MD Work Phone: [facility] HospitalXvfuabegiq45-99-8944 09:31-9266SyM6% (BldA) [Mass fraction]95 %Mason Johnson MD Work Phone: 1(484)483-[address] [place], [place] [address]Cmedplbkoy48-01-3041 09:31-0400Systolic blood namjyjmq339 mm[Hg]Mason Johnson MD Work Phone: [facility] CenterIcwgxjmyxv28-22-2230 10:33-0400Body voqhgf960.2 cmDalaron Johnson MD Work Phone: [facility] CenterNgybxpazdw56-07-4506 10:33-0400Body mass index (BMI) [Ratio]31.32 kg/l5IpnlaqMason Johnson MD Work Phone: [facility] CenterJdbwiakhut05-87-5738 10:33-0400Body nnypxg44.72 kgMason Johnson MD Work Phone: [facility] CenterKmvshschrn82-67-4415 10:33-0400Diastolic blood trhojhsq53 mm[Hg]Mason Johnson MD Work Phone: [facility] CenterIujkcdipoh45-84-9597 10:33-0400Heart rate56 /min Mason Johnson MD Work Phone: [facility] CenterMlfvetsmgd37-11-9980 10:33-7357ByA2% (BldA) [Mass fraction]95 %Mason Johnson MD Work Phone: [facility] CenterSmhvqqrgto53-06-3319 10:33-0400Systolic blood itbzdpyn428 mm[Hg]Mason Johnson MD Work Phone: [facility] CenterUdpdzvswcd31-56-3619 10:50-0400Body vuxuyy540.9 cmVwagner England MD Work Phone: [facility]04-30-2025 10:50-0400Body mass index (BMI) [Ratio]32.92 kg/j0BhjrrJohn England MD Work Phone: [facility]04-30-2025 10:50-0400Body temperature 97.9 [degF]John England MD Work Phone: [facility]04-30-2025 10:50-0400Body yotsyh97.7 kgJohn England MD Work Phone: [facility]04-30-2025 10:50-0400Diastolic blood xuxpmsnf16 mm[Hg]John England MD Work Phone: [facility]04-30-2025 10:50-0400Heart rate55 /min John England MD Work Phone: [facility]04-30-2025 10:50-0400Respiratory rate 16 /minJohn England MD Work Phone: [facility]04-30-2025 10:50-2950UyB3% (BldA) [Mass fraction]97 %John England MD Work Phone: [facility]04-30-2025 10:50-0400Systolic blood dpdmuuto707 mm[Hg]John England MD Work Phone: [facility]04-21-2025 10:52-0400Body gfkihc919.2 cmMason Johnson MD Work Phone: [facility] CenterMtjoigtope28-04-9313 10:52-0400Body mass index (BMI) [Ratio]30.85 kg/z2AgzcotMason Johnson MD Work Phone: [facility] CenterUgyvxjqpgr51-45-2551 10:52-0400Body innivw30.36 kgMason Johnson MD Work Phone: [facility] CenterLbdhjvmfob22-14-8732 10:52-0400Diastolic blood tgepbwnp67 mm[Hg]Mason Johnson MD Work Phone: [facility] CenterXaxhmvptpr33-32-0077 10:52-0400Heart rate52 /min Mason Johnson MD Work Phone: [facility] CenterAgnkzpvjzq81-28-8422 10:52-8749NsP2% (BldA) [Mass fraction]96 %Mason Johnson MD Work Phone: [facility] CenterIrwdolhyiy46-50-7789 10:52-0400Systolic blood wmnltvan567 mm[Hg]Mason Johnson MD Work Phone: [place] [address]Yllmeupsnj67-56-5647 08:01-0400Body kwgajb458.2 cmHilary Timmis MD Work Phone: [facility] CenterRxqmisctxy38-29-0729 08:01-0400Body mass index (BMI) [Ratio]30.85 kg/z1CnaegeSerene Morales MD Work Phone: [facility] CenterJmcnikvznx13-18-6448 08:01-0400Body bijznn56.36 kgSerene Morales MD Work Phone: [facility] CenterOemlqakthj60-59-9144 08:01-0400Diastolic blood mskgumrt99 mm[Hg]Serene Morales MD Work Phone: 1(949)[facility]-7692[facility] CenterXoqeqlkjuu77-85-5055 08:01-0400Heart rate54 /min Serene Morales MD Work Phone: [facility] CenterEphktatbnp25-57-2469 08:01-0400Systolic blood vdihgutb104 mm[Hg]Serene Morales MD Work Phone: [facility] CenterBfsfzpfdxn00-38-7815 15:41-0400Body qivuax190.2 cmDalaron Johnson MD Work Phone: [facility] CenterStnpjgwmzt32-74-0424 15:41-0400Body mass index (BMI) [Ratio]30.85 kg/b2AunnhgMason Johnson MD Work Phone: [facility] CenterCoxeozxtmo51-80-4792 15:41-0400Body .36 kgMason Johnson MD Work Phone: [facility] HospitalCyustfxvav34-93-7113 15:41-0400Diastolic blood gwddtjof25 mm[Hg]Mason Johnson MD Work Phone: [facility] HospitalPvustdqmle03-33-4033 15:41-0400Heart rate56 /min Mason Johnson MD Work Phone: [facility] HospitalBpwiltlxry49-97-3317 15:41-5904OtX1% (BldA) [Mass fraction]98 %Mason Johnson MD Work Phone: [facility] HospitalDxqoqkriaw98-40-3410 15:41-0400Systolic blood fupmwsfb504 mm[Hg]Mason Johnson MD Work Phone: [facility] CenterWbjdspspkq92-05-5643 09:26-0500Body hevpyd990.2 cmMason Johnson MD Work Phone: [facility] CenterAplbpfhcoh02-60-5419 09:26-0500Body mass index (BMI) [Ratio]30.54 kg/b8DfekjtMason Johnson MD Work Phone: [facility] CenterCbsixhhqum05-80-1047 09:26-0500Body eeoyij55.45 kgMason Johnson MD Work Phone: 1(574)462-[address] [place], [place] [address]Jpghykoapm59-94-7840 09:26-0500Diastolic blood ihesyxrb39 mm[Hg]Mason Johnson MD Work Phone: 1(362)[facility]-[address] [place], [place] [address]Brniaeihhz91-84-0097 09:26-0500Heart rate74 /min Mason Johnson MD Work Phone: 1(732)[facility]-[address] [place], [place] [address]Quhroobyhr01-81-6088 09:26-1453VtM1% (BldA) [Mass fraction]98 %Mason Johnson MD Work Phone: 1(358)251-[address] [place], [place] [address]Nqafsglcum54-94-9054 09:26-0500Systolic blood kzjouljz509 mm[Hg]Mason Johnson MD Work Phone: [facility] CenterSnmnnxjpcg47-11-5791 14:14-0500Body qjfqhu966.2 cmSerene Morales MD Work Phone: [facility] CenterEojyctncwc99-15-0805 14:14-0500Body mass index (BMI) [Ratio]29.91 kg/e0OgqewzSerene Morales MD Work Phone: [facility] CenterAbivzgqekj04-27-3121 14:14-0500Body skrceq71.64 kgSerene Morales MD Work Phone: [facility] CenterEkplhpekng58-40-9809 14:14-0500Diastolic blood bawoypdc03 mm[Hg]Serene Morales MD Work Phone: [facility] CenterHbadwmtsga56-63-3230 14:14-0500Heart rate57 /min Serene Morales MD Work Phone: 1(543)[facility]-27[address] CenterAlhmbinihd08-92-7545 14:14-0500Systolic blood liolhuzu315 mm[Hg]Serene Morales MD Work Phone: 1(985)[address] [place], [place] 3162712-10-2024 09:02-0500Body .2 Donato Morales MD Work Phone: 1(247)[address] [place], [place] 3162712-10-2024 09:02-0500Body mass index (BMI) [Ratio]29.91 kg/f9FqsxddSerene Morales MD Work Phone: 1(503)[address] [place], [place] 3162712-10-2024 09:02-0500Body gpaiwn89.64 kgSerene Morales MD Work Phone: 1(333)[address] [place], [place] 3162712-10-2024 09:02-0500Diastolic blood yqbvkhrc00 mm[Hg]Serene Morales MD Work Phone: 1(181)[address] [place], [place] 3162712-10-2024 09:02-0500Systolic blood kefinefz376 mm[Hg]Serene Morales MD Work Phone: 1(696)[address] [place] [address]-12-2024 08:57-0500Body .2 Donato Morales MD Work Phone: 1(772)[address] [place], [place] 3162711-12-2024 08:57-0500Body mass index (BMI) [Ratio]29.91 kg/m3PnlgcgSerene Morales MD Work Phone: 1(127)[address] [place], [place] 3162711-12-2024 08:57-0500Body gsorat58.64 kgSerene Morales MD Work Phone: 1(066)[address] [place] [address]-12-2024 08:57-0500Diastolic blood vyabxelw29 mm[Hg]Serene Morales MD Work Phone: 1(917)[address] [place] [address]-12-2024 08:57-0500Systolic blood ynqpnvkg808 mm[Hg]Serene Morales MD Work Phone: 1(547)[address] [place], [place] 3162710-30-2024 15:06-0400Body svcuxb976.9 Hunter England MD Work Phone: [address] [place], [place] 3724310-30-2024 15:06-0400Body mass index (BMI) [Ratio]31.12 kg/p5CyuhdJohn England MD Work Phone: [facility]10-30-2024 15:06-0400Body temperature 97.81 [degF]John England MD Work Phone: [facility]10-30-2024 15:06-0400Body urjxli91.7 kgJohn England MD Work Phone: [facility]10-30-2024 15:06-0400Diastolic blood eeluecqb55 mm[Hg]John England MD Work Phone: [facility]10-30-2024 15:06-0400Heart rate60 /min John England MD Work Phone: [facility]10-30-2024 15:06-0400Respiratory rate 18 /minJohn England MD Work Phone: [facility]10-30-2024 15:06-9206EuG3% (BldA) [Mass fraction]98 %John England MD Work Phone: [facility]10-30-2024 15:06-0400Systolic blood eehnmvyq618 mm[Hg]John England MD Work Phone: [facility]10-30-2024 14:36-0400Body mass index (BMI) [Ratio]31.12 kg/m2BARRON Feliz MD Work Phone: [facility]10-30-2024 14:36-0400Body temperature 97.81 [degF]BARRON Feliz MD Work Phone: [facility]10-30-2024 14:36-0400Body .7 kgBARRON Feliz MD Work Phone: [facility]10-30-2024 14:36-0400Diastolic blood jivbpatm43 mm[Hg]BARRON Feliz MD Work Phone: [facility]10-30-2024 14:36-0400Heart rate60 /min BARRON Feliz MD Work Phone: [facility]10-30-2024 14:36-0400Respiratory rate 18 /FaustoBARRON Fleiz MD Work Phone: [facility]10-30-2024 14:36-7671KuN3% (BldA) [Mass fraction]98 %BARRON Feliz MD Work Phone: [facility]10-30-2024 14:36-0400Systolic blood sdllbibl117 mm[Hg]BARRON Feliz MD Work Phone: [facility]10-24-2024 08:51-0400Body .2 cmMason Johnson MD Work Phone: [facility] CenterMatnphlycv34-96-5888 08:51-0400Body mass index (BMI) [Ratio]30.23 kg/f4AfbvepMason Johnson MD Work Phone: [facility] CenterGzeubsbote85-34-4029 08:51-0400Body suevcx43.54 kgMason Johnson MD Work Phone: [facility]dy[facility]phk[facility]p56[facility]75-0494 08:51-0400Diastolic blood drgtircz53 mm[Hg]Mason Johnson MD Work Phone: [facility]Ptzdnggoec83-38-3588 08:51-0400Heart rate63 /min Mason Johnson MD Work Phone: [facility] CenterFqjsjqmzef61-65-2344 08:51-5879DfV3% (BldA) [Mass fraction]100 %Mason Johnson MD Work Phone: [facility] HospitalUewatuzwjk92-09-0482 08:51-0400Systolic blood rzvkqzou694 mm[Hg]Mason Johnson MD Work Phone: [facility] HospitalJbxxcqkzno18-29-2897 09:17-0400Body .2 cmSerene Morales MD Work Phone: [place] [address]Psakbtpxuw99-03-6545 09:17-0400Body mass index (BMI) [Ratio]30.38 kg/f2YijmsiSerene Morales MD Work Phone: [facility] CenterOpxcebcllv73-28-1490 09:17-0400Body uuzjnk27 kg Serene Morales MD Work Phone: [facility] CenterWmeummfvba07-59-3201 09:17-0400Diastolic blood ltglybse65 mm[Hg]Serene Morales MD Work Phone: [facility] CenterPwnbjbdzqk57-99-4647 09:17-0400Systolic blood ypaszhcj443 mm[Hg]Serene Morales MD Work Phone: [facility] CenterImsibhikpn15-59-4916 12:09-0400Body .18 [facility] 12:09-0400Body mass index (BMI) [Ratio]30.1 kg/q6SalkflzetC[facility]10-01-2024 12:09-0400Body .3 [degF][facility]10-01-2024 12:09-0400Body .2 kg[facility]10-01-2024 12:09-0400Diastolic blood vxhugkjd03 mm[Hg][facility]10-01-2024 12:09-0400 Heart rate63 /[facility]10-01-2024 12:09-0400 Respiratory rate18 /[facility]10-01-2024 12:09-0400 SaO2% (BldA) [Mass fraction]97 %[facility]10-01-2024 12:09-0400Systolic blood knehyamb145 mm[Hg][facility] 03-24-2024 08:59-0400Body flajrj691.2 Donato Morales MD Work Phone: [facility] CenterEpmvlteyub64-61-1082 08:59-0400Body mass index (BMI) [Ratio]29.6 kg/a7OssnwfSerene Morales MD Work Phone: [facility] CenterXimfilqiwp47-12-6535 08:59-0400Body .73 kgSerene Morales MD Work Phone: 1(537)[address]09-17-2024 08:59-0400Diastolic blood vskfymyy57 mm[Hg]Serene Morales MD Work Phone: 1(093)[address]09-17-2024 08:59-0400Systolic blood jvalynox263 mm[Hg]Serene Morales MD Work Phone: 1(657)[address] [place], [place] 3162708-20-2024 09:06-0400Body nxibre567.2 cmSerene Morales MD Work Phone: 1(339)[address] [place], [place] 3162708-20-2024 09:06-0400Body mass index (BMI) [Ratio]29.91 kg/p7NhmlhoSerene Morales MD Work Phone: 1(175)[address] [place], [place] 3162708-20-2024 09:06-0400Body dikwfv19.64 kgSerene Morales MD Work Phone: 1(388)[address] [place], [place] 3162708-20-2024 09:06-0400Diastolic blood csptkkzi61 mm[Hg]Serene Morales MD Work Phone: 1(621)[address] [place], [place] 3162708-20-2024 09:06-0400Systolic blood rakamjvp701 mm[Hg]Serene Morales MD Work Phone: 1(531)[address]07-09-2024 13:29-0400Body kxzdvy089.64 cmC[facility]07-09-2024 13:29-0400Body mass index (BMI) [Ratio]30.5 kg/f5HrnfmmhxiC[facility] Clinic [facility]07-09-2024 13:29-0400Body uezpyxyyjpk66.4 [degF][facility]07-09-2024 13:29-0400Body uphapu13.89 kgC[facility]07-09-2024 13:29-0400Diastolic blood xqifauok07 mm[Hg][facility]07-09-2024 13:29-0400 Heart rate66 /[facility]07-09-2024 13:29-0400 Respiratory rate18 /[facility]07-09-2024 13:29-0400 SaO2% (BldA) [Mass fraction]92 %[facility]07-09-2024 13:29-0400Systolic blood blbgyikt585 mm[Hg][facility] 11-06-2023 09:51-0400Body mass index (BMI) [Ratio]31.73 kg/m2BARRON Feliz MD Work Phone: [facility]05-01-2024 09:51-0400Body temperature 97.11 [degF]BARRON Feliz MD Work Phone: [facility]05-01-2024 09:51-0400Body xkjuhx85.4 kgBARRON Feliz MD Work Phone: [facility]05-01-2024 09:51-0400Diastolic blood dkyfzghq58 mm[Hg]BARRON Feliz MD Work Phone: [facility]05-01-2024 09:51-0400Heart rate58 /min BARRON Feliz MD Work Phone: [facility]05-01-2024 09:51-0400Respiratory rate 16 /FaustoBARRON Feliz MD Work Phone: [facility]05-01-2024 09:51-4027CuP5% (BldA) [Mass fraction]99 %BARRON Feliz MD Work Phone: [facility]05-01-2024 09:51-0400Systolic blood yydhktno324 mm[Hg]BARRON Feliz MD Work Phone: [facility]04-17-2024 10:56-0400Body obogfd832.9 cmVwagner England MD Work Phone: [facility]04-17-2024 10:56-0400Body temperature 97.81 [degF]John England MD Work Phone: [facility]04-17-2024 10:56-0400Body nihutl56.5 kgJohn England MD Work Phone: [facility]04-17-2024 10:56-0400Diastolic blood pbvabeei49 mm[Hg]John England MD Work Phone: [facility]04-17-2024 10:56-0400Heart rate54 /min John England MD Work Phone: [place] [address]-17-2024 10:56-0400Respiratory rate 16 /minJohn England MD Work Phone: [place] [address]-17-2024 10:56-5915PkN5% (BldA) [Mass fraction]98 %John England MD Work Phone: [place] [address]-17-2024 10:56-0400Systolic blood jkrtqaiq628 mm[Hg]John England MD Work Phone: [facility]2023 11:14-0400Body temperature 97.11 [degF]BARRON Feliz MD Work Phone: [facility]2023 11:14-0400Body jvmucu57.2 kgBARRON Feliz MD Work Phone: [facility]2023 11:14-0400Diastolic blood mxcoivrv166 mm[Hg]BARRON Feliz MD Work Phone: [facility]2023 11:14-0400Heart rate58 /min BARRON Feliz MD Work Phone: [facility]2023 11:14-0400Respiratory rate 16 /FaustoBARRON Feliz MD Work Phone: [facility]2023 11:14-1871EcH4% (BldA) [Mass fraction]98 %BARRON Feliz MD Work Phone: [facility]2023 11:14-0400Systolic blood ruggtgho695 mm[Hg]BARRON Feliz MD Work Phone: [facility]09-13-2023 12:55-0400Body psjyyr753.9 cmVwagner England MD Work Phone: [facility]09-13-2023 12:55-0400Body temperature 97.9 [degF]John England MD Work Phone: [facility]09-13-2023 12:55-0400Body mxerqw97.92 kgJohn England MD Work Phone: [facility]09-13-2023 12:55-0400Diastolic blood oiozybwt31 mm[Hg]John England MD Work Phone: [facility]09-13-2023 12:55-0400Heart rate59 /min John England MD Work Phone: [facility]09-13-2023 12:55-0400Respiratory rate 16 /minJohn England MD Work Phone: [facility]09-13-2023 12:55-4234CkQ4% (BldA) [Mass fraction]98 %John England MD Work Phone: [facility]09-13-2023 12:55-0400Systolic blood iaqjozrh216 mm[Hg]John England MD Work Phone: [facility]08-02-2023 11:59-0400Body temperature 97.3 [degF]BARRON Feliz MD Work Phone: [facility]08-02-2023 11:59-0400Body oaeztc29.74 kgBARRON Feliz MD Work Phone: [facility]08-02-2023 11:59-0400Diastolic blood wqyyohbm93 mm[Hg]BARRON Feliz MD Work Phone: [facility]08-02-2023 11:59-0400Heart rate56 /min BARRON Feliz MD Work Phone: [facility]08-02-2023 11:59-0400Respiratory rate 16 /FaustoBARRON Feliz MD Work Phone: [facility]08-02-2023 11:59-0400Systolic blood mm[Hg]BARRON Feliz MD Work Phone: [facility]08-02-2023 11:29-0400Body .9 cmVwagner England MD Work Phone: [facility]08-02-2023 11:29-0400Body temperature 97.3 [degF]John England MD Work Phone: [facility]08-02-2023 11:29-0400Body .92 kgJohn England MD Work Phone: [facility]08-02-2023 11:29-0400Diastolic blood immiqfbo89 mm[Hg]John England MD Work Phone: [facility]08-02-2023 11:29-0400Heart rate56 /min John England MD Work Phone: [facility]08-02-2023 11:29-0400Respiratory rate 16 /minJohn England MD Work Phone: [facility]08-02-2023 11:29-5765WoZ5% (BldA) [Mass fraction]98 %John England MD Work Phone: [facility]08-02-2023 11:29-0400Systolic blood yhedmmmt715 mm[Hg]John England MD Work Phone: [facility]05-24-2023 14:37-0400Body temperature 96.69 [degF]BARRON Feliz MD Work Phone: [facility]05-24-2023 14:37-0400Body bgtirl76.47 kgBARRON Feliz MD Work Phone: [facility]05-24-2023 14:37-0400Diastolic blood uhkvuwsn34 mm[Hg]BARRON Feliz MD Work Phone: [facility]05-24-2023 14:37-0400Heart rate66 /min BARRON Feliz MD Work Phone: [facility]05-24-2023 14:37-0400Respiratory rate 18 /FaustoBARRON Feliz MD Work Phone: [facility]05-24-2023 14:37-1665LeX1% (BldA) [Mass fraction]97 %BARRON Feliz MD Work Phone: [facility]05-24-2023 14:37-0400Systolic blood rjesnntm469 mm[Hg]BARRON Feliz MD Work Phone: [facility]05-03-2023 09:21-0400Body ypwotn069.9 cmVwagner England MD Work Phone: [facility]05-03-2023 09:21-0400Body temperature 97.5 [degF]John England MD Work Phone: [facility]05-03-2023 09:21-0400Body sklrfo59.11 kgJohn England MD Work Phone: [facility]05-03-2023 09:21-0400Diastolic blood mm[Hg]John England MD Work Phone: [facility]05-03-2023 09:21-0400Heart rate58 /min John England MD Work Phone: [facility]05-03-2023 09:21-0400Respiratory rate 16 /minJohn England MD Work Phone: [facility]05-03-2023 09:21-5941XaC2% (BldA) [Mass fraction]100 %John Egnland MD Work Phone: [place] [address]-03-2023 09:21-0400Systolic blood ksljfadj133 mm[Hg]John England MD Work Phone: [facility]04-26-2023 14:05-0400Body ufmjor933.9 cmNatalie Cadena APRN.CONICAL MIXER Work Phone: [facility]04-26-2023 14:05-0400Body temperature 97.5 [degF]Natalie Cadena TRAFFIC OPERATOR.CONICAL MIXER Work Phone: [facility]04-26-2023 14:05-0400Body zsbuhz00.2 kgNatalie Cadena APRN.CONICAL MIXER Work Phone: [facility]04-26-2023 14:05-0400Diastolic blood vujrpqav74 mm[Hg]Natalie Cadena APRN.CONICAL MIXER Work Phone: [address] [place], [place] [address]304-26-2023 14:05-0400Heart rate67 /min Nataile Cadena APRN.CONICAL MIXER Work Phone: [facility]04-26-2023 14:05-0400Respiratory rate 16 /minNatalie Cadena APRN.CONICAL MIXER Work Phone: [facility]04-26-2023 14:05-7783KcR4% (BldA) [Mass fraction]98 %Natalie Cadena APRN.CONICAL MIXER Work Phone: [facility]04-26-2023 14:05-0400Systolic blood ubxlyycd202 mm[Hg]Natalie Cadena APRN.CONICAL MIXER Work Phone: [facility]04-20-2023 09:51-0400Body epphtk238.9 cmNatalie Cadena APRN.CONICAL MIXER Work Phone: [facility]04-20-2023 09:51-0400Body temperature 97 [degF]Natalie Cadena APRN.CONICAL MIXER Work Phone: [facility]04-20-2023 09:51-0400Body kauhfk57.29 kgNatalie Cadena APRN.CONICAL MIXER Work Phone: [facility]04-20-2023 09:51-0400Diastolic blood mm[Hg]Natalie Cadena TRAFFIC OPERATOR.CONICAL MIXER Work Phone: [place] [address]-20-2023 09:51-0400Heart rate63 /min Natalie Cadena TRAFFIC OPERATOR.CONICAL MIXER Work Phone: [place] [address]-20-2023 09:51-0400Respiratory rate 16 /minNatalie Cadena TRAFFIC OPERATOR.CONICAL MIXER Work Phone: [place] [address]-20-2023 09:51-2239GcH1% (BldA) [Mass fraction]99 %Natalie Cadena TRAFFIC OPERATOR.CONICAL MIXER Work Phone: [place] [address]-20-2023 09:51-0400Systolic blood seswrvwl110 mm[Hg]Natalie Cadena TRAFFIC OPERATOR.CONICAL MIXER Work Phone: [facility]04-14-2023 09:21-0400Body .9 cmVwagner England MD Work Phone: [facility]04-14-2023 09:21-0400Body temperature 97.11 [degF]John England MD Work Phone: [facility]04-14-2023 09:21-0400Body ggeuvp77.74 kgJohn England MD Work Phone: [facility]04-14-2023 09:21-0400Diastolic blood yoyxadfi43 mm[Hg]John England MD Work Phone: [place] [address]-14-2023 09:21-0400Heart rate56 /min John England MD Work Phone: [place] [address]-14-2023 09:21-0400Respiratory rate 16 /minJohn England MD Work Phone: [place] [address]-14-2023 09:21-7401CsV9% (BldA) [Mass fraction]98 %John England MD Work Phone: [facility]04-14-2023 09:21-0400Systolic blood iiwhqcze700 mm[Hg]John England MD Work Phone: [facility]04-10-2023 10:40-0400Body temperature 97.39 [degF]BARRON Feliz MD Work Phone: [facility]04-10-2023 10:40-0400Body wxcqvo07.02 kgNA Agustín WELCH Work Phone: [facility]04-10-2023 10:40-0400Diastolic blood lynndfuh69 mm[Hg]BARRON Feliz MD Work Phone: [facility]04-10-2023 10:40-0400Heart rate83 /min BARRON Feliz MD Work Phone: [facility]04-10-2023 10:40-0400Respiratory rate 16 /FaustoBARRON Feliz MD Work Phone: [facility]04-10-2023 10:40-9144WdU3% (BldA) [Mass fraction]100 %BARRON Feliz MD Work Phone: [facility]04-10-2023 10:40-0400Systolic blood bqwycwyu468 mm[Hg]BARRON Feliz MD Work Phone: [facility]04-03-2023 11:07-0400Body temperature 98.2 [degF]Chair Jose Work Phone: [facility]04-03-2023 11:07-0400Diastolic blood ytjzrcss70 mm[Hg]Chair Elma Work Phone: [facility]04-03-2023 11:07-0400Heart rate70 /min Chair Jose Work Phone: [facility]04-03-2023 11:07-0400Respiratory rate 18 /minChair Jose Work Phone: [facility]04-03-2023 11:07-3566UzQ7% (BldA) [Mass fraction]99 %Chair Garcia Work Phone: [facility]04-03-2023 11:07-0400Systolic blood zjlaxrnm210 mm[Hg]Chair Garcia Work Phone: [facility]04-03-2023 10:48-0400Body temperature 97.2 [degF]BARRON Feliz MD Work Phone: [facility]04-03-2023 10:48-0400Body tandfz49.65 kgBARRON Feliz MD Work Phone: [facility]04-03-2023 10:48-0400Diastolic blood srhmgisn59 mm[Hg]BARRON Feliz MD Work Phone: [facility]04-03-2023 10:48-0400Heart rate67 /min BARRON Feliz MD Work Phone: [facility]04-03-2023 10:48-0400Respiratory rate 16 /FaustoBARRON Feliz MD Work Phone: [facility]04-03-2023 10:48-2916RmK7% (BldA) [Mass fraction]99 %BARRON Feliz MD Work Phone: [facility]04-03-2023 10:48-0400Systolic blood qgootawu483 mm[Hg]BARRON Feliz MD Work Phone: [facility]03-27-2023 11:40-0400Body ukgtto595.9 cmNatalie Cadena TRAFFIC OPERATOR.CONICAL MIXER Work Phone: [facility]03-27-2023 11:40-0400Body temperature 96.91 [degF]Natalie Cadena TRAFFIC OPERATOR.CONICAL MIXER Work Phone: [facility]03-27-2023 11:40-0400Body mgqqut68.29 kgNatalie Cadena TRAFFIC OPERATOR.CONICAL MIXER Work Phone: [facility]03-27-2023 11:40-0400Diastolic blood mm[Hg]Natalie Cadena TRAFFIC OPERATOR.CONICAL MIXER Work Phone: [facility]03-27-2023 11:40-0400Heart rate74 /min Natalie Cadena TRAFFIC OPERATOR.CONICAL MIXER Work Phone: [facility]03-27-2023 11:40-0400Respiratory rate 16 /minNatalie Cadena TRAFFIC OPERATOR.CONICAL MIXER Work Phone: [place] [address]-27-2023 11:40-0470BqT3% (BldA) [Mass fraction]99 %Natalie Cadena TRAFFIC OPERATOR.CONICAL MIXER Work Phone: [place] [address]-27-2023 11:40-0400Systolic blood mm[Hg]Natalie Cadena TRAFFIC OPERATOR.CONICAL MIXER Work Phone: [place] [address]-27-2023 10:47-0400Body temperature 96.91 [degF]BARRON Feliz MD Work Phone: [place] [address]-27-2023 10:47-0400Body clynsh06.65 kgBARRON Feliz MD Work Phone: [place] [address]-27-2023 10:47-0400Diastolic blood plislonv23 mm[Hg]BARRON Feliz MD Work Phone: [place] [address]-27-2023 10:47-0400Heart rate74 /min BARRON Feliz MD Work Phone: [place] [address]-27-2023 10:47-0400Respiratory rate 16 /FaustoBARRON Feliz MD Work Phone: [place] [address]-27-2023 10:47-5777JeV4% (BldA) [Mass fraction]99 %BARRON Feliz MD Work Phone: [place] [address]-27-2023 10:47-0400Systolic blood sfhsmoll786 mm[Hg]BARRON Feliz MD Work Phone: [place] [address]-20-2023 10:40-0400Body temperature 97.59 [degF]BARRON Feliz MD Work Phone: [facility]03-20-2023 10:40-0400Body ekvzto70.46 kgBARRON Feliz MD Work Phone: 1(605) 805-364385 [address]20-2023 10:40-0400Diastolic blood ujzrmztf51 mm[Hg]BARRON Feliz MD Work Phone: [place] [address]-20-2023 10:40-0400Heart rate83 /min BARRON Feliz MD Work Phone: 1(442) 237-914885 [address]20-2023 10:40-0400Respiratory rate 18 /FaustoBARRON Feliz MD Work Phone: [place] [address]-20-2023 10:40-9610WcM8% (BldA) [Mass fraction]98 %BARRON Feliz MD Work Phone: [place] [address]-20-2023 10:40-0400Systolic blood etxmxrjy759 mm[Hg]BARRON Feliz MD Work Phone: [place] [address]-13-2023 11:03-0400Body temperature 97.7 [degF]BARRON Feliz MD Work Phone: [place] [address]-13-2023 11:03-0400Body fawrno42.82 kgBARRON Feliz MD Work Phone: [place] [address]-13-2023 11:03-0400Diastolic blood mm[Hg]BARRON Feliz MD Work Phone: 1(104) 346-622485 [address]13-2023 11:03-0400Heart rate75 /min BARRON Feliz MD Work Phone: [place] [address]-13-2023 11:03-0400Respiratory rate 18 /FaustoBARRON Feliz MD Work Phone: [place] [address]-13-2023 11:03-9976WlC7% (BldA) [Mass fraction]95 %BARRON Feliz MD Work Phone: [facility]03-13-2023 11:03-0400Systolic blood pihxtdgr266 mm[Hg]BARRON Feliz MD Work Phone: [facility]03-06-2023 11:17-0500Body temperature 97.81 [degF]BARRON Feliz MD Work Phone: [facility]03-06-2023 11:17-0500Body tiiypz92.73 kgBARRON Feliz MD Work Phone: [facility]03-06-2023 11:17-0500Diastolic blood mrlkcies06 mm[Hg]BARRON Feliz MD Work Phone: [facility]03-06-2023 11:17-0500Heart rate72 /min BARRON Feliz MD Work Phone: [facility]03-06-2023 11:17-0500Respiratory rate 18 /FaustoBARRON Feliz MD Work Phone: [facility]03-06-2023 11:17-5531LiH1% (BldA) [Mass fraction]97 %BARRON Feliz MD Work Phone: [facility]03-06-2023 11:17-0500Systolic blood lekzoard892 mm[Hg]BARRON Feliz MD Work Phone: [facility]02-27-2023 11:09-0500Body ldoccl301.9 cmVwagner England MD Work Phone: [facility]02-27-2023 11:09-0500Body temperature 97 [degF]John England MD Work Phone: [facility]02-27-2023 11:09-0500Body iwjtzm74.46 kgJohn England MD Work Phone: [facility]02-27-2023 11:09-0500Diastolic blood jwqnoixi15 mm[Hg]John England MD Work Phone: [place] [address]-27-2023 11:09-0500Heart rate70 /min John England MD Work Phone: [place] [address]-27-2023 11:09-0500Respiratory rate 16 /minJohn England MD Work Phone: 1(807) 672-709932 [address]27-2023 11:09-4775PlJ9% (BldA) [Mass fraction]97 %John England MD Work Phone: 1(533) 415-169032 [address]27-2023 11:09-0500Systolic blood numwiytl757 mm[Hg]John England MD Work Phone: [place] [address]-27-2023 09:57-0500Body temperature 97 [degF]BARRON Feliz MD Work Phone: [place] [address]-27-2023 09:57-0500Body otqwpi69.19 kgBARRON Feliz MD Work Phone: [place] [address]-27-2023 09:57-0500Diastolic blood wfveadff91 mm[Hg]BARRON Feliz MD Work Phone: [place] [address]-27-2023 09:57-0500Heart rate70 /min BARRON Feliz MD Work Phone: [place] [address]-27-2023 09:57-0500Respiratory rate 16 /FaustoBARRON Feliz MD Work Phone: [place] [address]-27-2023 09:57-5137ChO0% (BldA) [Mass fraction]97 %BARRON Feliz MD Work Phone: [place] [address]-27-2023 09:57-0500Systolic blood vyhrylkn820 mm[Hg]BARRON Feliz MD Work Phone: [facility]02-09-2023 15:39-0500Body tkwvey996.9 cmVwagner England MD Work Phone: [phone]) [phone]09-2023 15:39-0500Body temperature 97.7 [degF]John England MD Work Phone: [facility]02-09-2023 15:39-0500Body oprxco84.73 kgJohn England MD Work Phone: [facility]02-09-2023 15:39-0500Diastolic blood atypmwbl01 mm[Hg]John England MD Work Phone: [facility] [facility] 15:39-0500Heart rate64 /min John England MD Work Phone: [facility]02-09-2023 15:39-0500Respiratory rate 16 /minJohn England MD Work Phone: [facility]02-09-2023 15:39-9762QxV0% (BldA) [Mass fraction]97 %John England MD Work Phone: [facility]02-09-2023 15:39-0500Systolic blood kitotmpi933 mm[Hg]John England MD Work Phone: [facility]02-07-2023 10:01-0500Body .9 cmBARRON Feliz MD Work Phone: [facility]02-07-2023 10:01-0500Body temperature 97.7 [degF]BARRON Feliz MD Work Phone: [facility]02-07-2023 10:01-0500Body wpfguq53.82 kgBARRON Feliz MD Work Phone: [facility]02-07-2023 10:01-0500Diastolic blood fztxnjje93 mm[Hg]BARRON Feliz MD Work Phone: [facility]02-07-2023 10:01-0500Heart rate58 /min BARRON Feliz MD Work Phone: [facility]02-07-2023 10:01-0500Respiratory rate 16 /Fausto Agustín WELCH Work Phone: [facility]02-07-2023 10:01-6479QrR0% (BldA) [Mass fraction]99 %NA Agustín WELCH Work Phone: [facility]02-07-2023 10:01-0500Systolic blood mm[Hg]BARRON Feliz MD Work Phone: [facility]12-07-2022 14:55-0500Blood Pressure LocationMichael NILL [facility] Fjabeath12-59-5249 14:55-0500Diastolic blood znsubndq62 mm[Hg]Renea NILL [facility] Nhqxoqgw69-46-7749 14:55-0500Heart rate 60 /minMichael NILL [facility] Iwfzahhz26-09-4602 14:55-0500 Respiratory rate16 /minMichael NILL [facility] Lcetjodx58-39-3394 14:55-0500Systolic blood mm[Hg]Renea NILL [facility] [place] Encounters Encounter DateEncounter TypeCare ProviderFacilityStart: 04-30-2025 End: 04-57-6445Ucphkb outpatient visit 25 minutesMason Johnson MD Work Phone: [facility] StoughtonnceComment on above:Primary osteoarthritis of left hip (Primary Dx); 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, without long-term current use of insulin (HCC); Coronary artery disease involving [place] coronary artery of [place] heart without angina pectoris; Abnormal EKG; History of heart artery stentStart: 04-30-2025 End: 01-63-9807fhwjkkxekcNAKKCY B BERRYNot AvailableStart: 04-29-2025 End: 76-83-1114Glklepkyf Result EncounterGeneric External Data ProviderNOMS External Department UnsolicitedStart: 04-29-2025 End: 93-45-6425Ppmpojlco Result EncounterGeneric External Data ProviderNOMS External Department UnsolicitedStart: 04-29-2025 End: 20-84-5489qdabdbnsfcPlgewa Stepanic Jr-LAB Path Spec [place] HospStart: 04-29-2025 End: 62-38-4845Syttqlgp ReferredGeorge C Stepnaldo Jr DO-LAB Path Spec [place] HospStart: 35-16-2089imcgrbhmxhOHSJK ABHYANKARFacility:[facility] Start: 04-28-2025 End: 26-41-9227Imbdok flowsheetJr. Mechelle Boyer DO Work Phone: N[facility]Start: 04-28-2025 End: 69-45-2403Lwpcoq flowsheetJr. Mechelle Boyer DO Work Phone: [facility]edicsStart: 04-28-2025 End: 17-28-2768Kfwgiq outpatient visit 40 minutesJr. Mechelle Boyer DO Work Phone: NOMS Jose OrthopaedicsComment on above:Primary osteoarthritis of left hip (Primary Dx); Pre-op evaluationStart: 04-28-2025 End: 23-18-7684Kkdfgkqylzwut examination doneJr. Mechelle Boyer DO Work Phone: [facility] HealthcareStart: 04-28-2025 End: 87-44-3477qzajcukybaXS., MECHELLE BOYERNot AvailableStart: 04-20-2025 End: 21-79-8308Fovxiz flowsheetSerene Morales MD Work Phone: [facility]olaryngologyStart: 04-20-2025 End: 35-49-1382Kxpuno flowsEvangelist Morales MD Work Phone: [facility]olaryngologyStart: 04-20-2025 End: 97-50-9163Zofiae outpatient visit 15 minutesSerene Morales MD Work Phone: [facility] OtolaryngologyComment on above: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)Start: 04-20-2025 End: 15-73-9333gshogztatnXCPOYK H TIMMISNot AvailableStart: 04-19-2025 End: 89-38-5519Nghofqbuj encounterJr. Mechelle Boyer DO Work Phone: NOMS [place] OrthopaedicsComment on above:hip DOM Start: 04-14-2025 End: 72-82-2575Hdofjw flowsheetJr. Mechelle Boyer DO Work Phone: N[facility]opaedicsStart: 04-14-2025 End: 80-83-7012Cnlpmz flowsheetJr. Mechelle Boyer DO Work Phone: [facility] [place] [facility]opaedicsStart: 04-14-2025 End: 14-15-8486Jzmozh outpatient visit 25 minutesJr. Mechelle Boyer DO Work Phone: N[facility] [place] OrthopaedicsComment on above:Left hip pain (Primary Dx); Pseudogout involving multiple joints; Primary osteoarthritis of left hipStart: 04-14-2025 End: 26-36-8861gxqqpotnjsQO., MECHELLE BOYERAlma Rosa AvailableStart: 03-26-2025 End: 43-56-8776Zjfhai Leah Johnson MD Work Phone: [facility] MedinceStart: 03-26-2025 End: 90-89-8815Uuwion flowsNiecy Johnson MD Work Phone: [facility] MedinceStart: 03-26-2025 End: 11-38-3094Mdjrqj outpatient visit 25 minutesDalaron Johnson MD Work Phone: [facility] MedinceComment on above:Primary osteoarthritis of left hip (Primary Dx); Pseudogout involving multiple joints; Primary hypertension ; 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, without long-term current use of insulin (HCC); Moderate mixed hyperlipidemia not requiring statin therapyStart: 03-26-2025 End: 98-26-6559kpgwrhckscGGMFOT B BERRYNot AvailableStart: 03-12-2025 End: 38-64-3037Cgwpxhwtb Result EncounterMason Johnson MD Work Phone: NOMS External Department UnsolicitedStart: 03-12-2025 End: 39-42-1812Zqbbkgitx Result EncounterMason Johnson MD Work Phone: NOMS External Department UnsolicitedStart: 01-19-2025 End: 34-01-9611Dpgfkc Tahir Morales MD Work Phone: N[facility] CI ENTStart: 01-19-2025 End: 81-19-8110Rvmcucmaikel Morales MD Work Phone: N[facility] CI ENTStart: 01-19-2025 End: 65-33-1644wrrxvzijzgPPBAGJ H TIMMISNot AvailableStart: 01-19-2025 End: 30-39-0587Zbwjuz outpatient visit 15 minutesSerene Morales MD Work Phone: NOMS CI ENTComment on above: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)Start: 01-06-2025 End: 29-00-8060Vqgdty Leah Johnson MD Work Phone: N[facility] CI FMStart: 01-06-2025 End: 19-84-8264Bnwser Leah Johnson MD Work Phone: [facility] CI FMStart: 01-06-2025 End: 58-63-9237Xsvviq outpatient visit 15 minutesMason Johnson MD Work Phone: NOMS CI FMComment on above:Left lumbar radiculitis (Primary Dx); Left hip painStart: 01-06-2025 End: 39-62-0456ymcpmtvarxBFJCGS B BERRYNot AvailableStart: 12-28-2024 End: 40-92-4239Etpmvshxr Result EncounterMason Johnson MD Work Phone: NOMS External Department UnsolicitedStart: 12-28-2024 End: 84-71-4833Ffymcqssq Result EncounterMason Johnson MD Work Phone: NOMS External Department UnsolicitedStart: 12-28-2024 End: 13-61-5709Zwukbd outpatient visit 25 minutesMason Johnson MD Work Phone: NOM[facility] CI FMComment on above:Left hip pain (Primary Dx); Effusion of left knee; Acute pain of left kneeStart: 12-28-2024 End: 80-83-1802xlwsxxmvflIASMWT B BERRYNot AvailableStart: 12-09-2024 End: 05-08-8960Fmhsfg flowsNiecy Johnson MD Work Phone: [facility] CI FMStart: 12-09-2024 End: 20-43-5290Uhmojp Leah Johnson MD Work Phone: [facility] CI FMStart: 12-09-2024 End: 26-53-2637Cphezojqa Result EncounterMason Johnson MD Work Phone: NOMS External Department UnsolicitedStart: 12-09-2024 End: 27-33-3599Rypcug outpatient visit 25 minutesMason Johnson MD Work Phone: NOMS CI FMComment on above:Inflammatory arthritis (Primary Dx); Effusion of left knee; Acute pain of left knee; 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, without long-term current use of insulin ([facility])Start: 12-09-2024 End: 78-06-6440duvbznbqdbFPTCFV B BERRYNot AvailableStart: 12-02-2024 End: 20-62-7998Hdmguvypa Result EncounterGeneric External Data ProviderNOMS External Department UnsolicitedStart: 12-02-2024 End: 12-65-3666Cmicduwmx Result EncounterGeneric External Data ProviderNOMS External Department UnsolicitedStart: 12-02-2024 End: 51-98-8457jypzretgraTYUJVQ B BERRY IIFacility:[facility] Start: 11-04-2024 End: 31-90-1563Pzqncg outpatient visit 15 minutesG Jeyson Feliz MD Work Phone: Radiation OncologyComment on above:Acquired hypothyroidism (Primary Dx)Start: 11-04-2024 End: 04-09-7708Uqyjmb outpatient visit 25 minutesJohn England MD Work Phone: Hematology/OncologyComment on above: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); Lung nodules; Stage 3 chronic kidney disease, unspecified whether stage 3a or 3b CKD (HCC) Start: 11-04-2024 End: 88-41-0876mhlddfnztjKVinh HICKEYRFacility:[facility] Start: 10-28-2024 End: 45-72-9578Veqrtnkzy Result EncounterGeneric External Data ProviderNOMS External Department UnsolicitedStart: 10-28-2024 End: 44-35-7165Lenoggxnp Result EncounterGeneric External Data ProviderNOMS External Department UnsolicitedStart: 86-83-9917lbiluuvuzkGZDCB ABHYANKAR [facility] 10-26[facility]24 End: 96-38-4687Cxoxsn flowsNiecy Johnson MD Work Phone: N[facility] CI FMStart: 10-26-2024 End: 27-88-5853Eouamp flowsNiecy Johnson MD Work Phone: N[facility] CI FMStart: 10-26-2024 End: 83-10-4925Eeokgy outpatient visit 15 minutesMason Johnson MD Work Phone: NOMS CI FMComment on above:Primary osteoarthritis of left hip (Primary Dx); Neck pain on left side; Left hip pain; Spondylosis of cervical region without myelopathy or radiculopathy; Rheumatoid arthritis, unspecifiedStart: 10-26-2024 End: 44-06-2463aelghzgnurYADCOM B BERRYNot AvailableStart: 10-20-2024 End: 76-28-4892Qyteoc flowsheetHilary H Timmis MD Work Phone: [facility] CI ENTStart: 10-20-2024 End: 21-92-8305Ltxqhj Tahir Morales MD Work Phone: N[facility] CI ENTStart: 10-20-2024 End: 34-60-8215gijmozbtvnWMLCRN H TIMMISNot AvailableStart: 10-20-2024 End: 02-20-2406Mffeck outpatient visit 15 minutesSerene Morales MD Work Phone: NOMS CI ENTComment on above:Cancer of base of tongue (CMS/HCC) (Primary Dx)Start: 10-13-2024 End: 41-90-1286Yfmmemtwj Result EncounterMason Johnson MD Work Phone: NOMS External Department UnsolicitedStart: 10-13-2024 End: 28-66-9434Hmzexibsp Result EncounterMason Johnson MD Work Phone: NOMS External Department UnsolicitedStart: 10-12-2024 End: 48-95-9557Dyvdbq outpatient visit 25 minutesMason Johnson MD Work Phone: NOMS CI FMComment on above:Neck pain on left side (Primary Dx); Left hip pain; Osteoarthritis, unspecified osteoarthritis type, unspecified site; Stress incontinence of urineStart: 10-12-2024 End: 92-60-5490rxcbswhcweSGDBFS B BERRYNot AvailableStart: 10-12-2024 End: 86-63-2171Qooawn flowsNiecy Johnson MD Work Phone: NOM[facility] CI FMStart: 10-12-2024 End: 90-87-6857Brunxj Leah Johnson MD Work Phone: N[facility] CI FMStart: 09-17-2024 End: 24-80-6824Gqbqqg flowsUsha Stevens TRAFFIC OPERATOR-CONICAL MIXER Work Phone: NOMS SWS DERMStart: 09-17-2024 End: 82-57-1391Xpyyws flowsheetNatalie A Felter TRAFFIC OPERATOR-CONICAL MIXER Work Phone: NOMS SWS DERMStart: 09-17-2024 End: 52-35-8159gclfibntldNWUWCBN A FELTERNot AvailableStart: 09-17-2024 End: 31-66-5980Tootds outpatient visit 10 minutesNatalie Ricci Pierreer TRAFFIC OPERATOR-CONICAL MIXER Work Phone: noms SWS DERMComment on above:Seborrheic keratosis (Primary Dx); Actinic keratosis; Seborrheic keratosis, inflamedStart: 08-31-2024 End: 65-81-4539Cdzrel Leah Johnson MD Work Phone: NOM[facility] CI FMStart: 08-31-2024 End: 19-81-7120Eygpfo Leah Johnson MD Work Phone: N[facility] CI FMStart: 08-31-2024 End: 45-74-8011Iljqo of hemosiderin, quantMason Johnson MD Work Phone: NON[facility] HealthcareStart: 08-31-2024 End: 87-54-6779Dcgplqp encounter procedureMason Johnson MD Work Phone: NOMS CI FMComment on above:Routine general medical examination [...] insulin (CMS/HCC); Torticollis; Actinic keratosisStart: 08-31-2024 End: 55-75-2809pijfccssnwHZPWVE B BERRYNot AvailableStart: 07-21-2024 End: 24-13-9579Rhghnx outpatient visit 15 minutesSerene Morales MD Work Phone: noMS CI ENTComment on above:Cancer of base of tongue (CMS/HCC) (Primary Dx)Start: 07-21-2024 End: 84-67-7264hvwfgopwpiABDJPY H TIMMISNot AvailableStart: 07-21-2024 End: 28-73-5631Mbwexy flowsEvangelist Morales MD Work Phone: N[facility] CI ENTStart: 07-21-2024 End: 41-83-1426Lsgcyi Tahir Morales MD Work Phone: NOM[facility] CI ENTStart: 07-15-2024 End: 58-55-7653Xjwhfabt SupportMannie Rodriguez POSITION CLASSIFICATION MANAGER Work Phone: NOMS CI FMComment on above:Need for vaccinationStart: 06-16-2024 End: 75-82-0152Hdrlfu Tahir Morales MD Work Phone: N[facility] CI ENTStart: 06-16-2024 End: 07-14-4933Pnisfl Tahir Morales MD Work Phone: NOM[facility] CI ENTStart: 06-16-2024 End: 60-78-2374lrzikgadihLTMLSE H TIMMISNot AvailableStart: 06-16-2024 End: 50-38-2767Nptixe outpatient visit 15 minutesHisravani Morales MD Work Phone: NOMS CI ENTComment on above:Cancer of base of tongue (CMS/HCC) (Primary Dx)Start: 05-26-2024 End: 69-19-8825Cncgjj flowsheetNatalie A Felter TRAFFIC OPERATOR-CONICAL MIXER Work Phone: NOMS SWS DERMStart: 05-26-2024 End: 51-43-9103Zwdoch flowsheetNatalie A Felter TRAFFIC OPERATOR-CONICAL MIXER Work Phone: NOMS SWS DERMStart: 05-26-2024 End: 28-62-0672wrmlhbonxhDESDMDX A FELTERNot AvailableStart: 05-26-2024 End: 96-05-3389Rlgdks outpatient visit 10 minutesNatalie A Felter TRAFFIC OPERATOR-CONICAL MIXER Work Phone: noms SWS DERMComment on above:Seborrheic keratosis (Primary Dx); Actinic keratosisStart: 05-19-2024 End: 46-55-4286Owqspp Tahir Morales MD Work Phone: N[facility] CI ENTStart: 05-19-2024 End: 96-57-1134Tzqkcg Tahir Morales MD Work Phone: NOMS CI ENTStart: 05-19-2024 End: 76-59-2023Kukwad outpatient visit 15 minutesSerene Morales MD Work Phone: noms CI ENTComment on above:Cancer of base of tongue (CMS/HCC) (Primary Dx)Start: 05-19-2024 End: 46-18-5016clnuhedjobBTEDAU H TIMMISNot AvailableStart: 05-18-2024 End: 51-72-4785SiafeqUoeisuay Fitzpatrick POSITION CLASSIFICATION MANAGER Work Phone: noms CWM FMComment on above:Primary hypertension (CMS/HCC)Start: 05-06-2024 End: 84-34-7514Gzpxfh outpatient visit 25 minutesJohn England MD Work Phone: Hematology/OncologyComment on above: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); Lung nodules; Stage 3 chronic kidney disease, unspecified whether stage 3a or 3b CKD (HCC) Start: 05-06-2024 End: 19-54-2922djgnynotfpTRNQO ABFALLONARFacility:[facility] Hospitaltart: 05-06-2024 End: 99-04-5930Qjhjdnv encounter procedureG Jeyson Feliz MD Work Phone: Radiation OncologyComment on above:Head and neck cancer (HCC) (Primary Dx)Start: 04-30-2024 End: 95-91-3373Mstudfmaikel Johnson MD Work Phone: noms CI FMStart: 04-30-2024 End: 56-22-4265Divcxj flowsNiecy Johnson MD Work Phone: noMS CI FMStart: 04-30-2024 End: 21-95-6830Odiubh outpatient visit 25 minutesMason Johnson MD Work Phone: noMS CI FMComment on above:Primary hypertension (CMS/HCC) (Primary Dx); Controlled type 2 diabetes mellitus without complication, without long-term current use of insulin (CMS/HCC); Coronary artery disease involving [place] coronary artery of [place] heart without angina pectoris (CMS/HCC)Start: 04-23-2024 End: 51-83-3962Kwkiyqpsz Result EncounterGeneric External Data ProviderNOMS External Department UnsolicitedStart: 04-23-2024 End: 05-05-2730Eeaozbijr Result EncounterGeneric External Data ProviderNOMS External Department UnsolicitedStart: 04-23-2024 End: 46-88-9281Uqusdxzinb hospital visit by physicianArrival Time Radiology Work Phone: Radiology Pet CTComment on above:Cancer of the base of tongue (HCC) [C01]Start: 04-21-2024 End: 67-58-9536Gzfzob flowsEvangelist Morales MD Work Phone: noms CI ENTStart: 04-21-2024 End: 98-21-9566Awords flowsEvangelist Morales MD Work Phone: noms CI ENTStart: 04-21-2024 End: 83-01-0463Omjwvb outpatient visit 15 minutesSerene Morales MD Work Phone: noms CI ENTComment on above:Cancer of base of tongue (CMS/HCC) (Primary Dx)Start: 04-07-2024 End: 08-06-4084vfglnlncabJurimvjbeMcKitrick Hospital Work Phone: Start: 04-07-2024 End: 53-07-5358Dgnazxl encounter procedureE[facility] [place] Work Phone: start: 03-24-2024 End: 96-92-6055Zxonle flowsEvangelist Morales MD Work Phone: noms CI ENTStart: 03-24-2024 End: 08-23-5826Dlvasy Tahir Morales MD Work Phone: noms CI ENTStart: 03-24-2024 End: 04-01-1901Bryfxr outpatient visit 15 minutesHisravani Morales MD Work Phone: noms CI ENTComment on above:Cancer of base of tongue (CMS/HCC) (Primary Dx)Start: 03-04-2024 End: 44-06-6243Hboynmixb Result EncounterSeli Drake MD Work Phone: noms External Department UnsolicitedStart: 03-04-2024 End: 90-69-7111Reprrhktt Result EncounterSeli Drake MD Work Phone: noms External Department UnsolicitedStart: 02-25-2024 End: 46-89-1037Tbkfgn flowsEvangelist Morales MD Work Phone: noms CI ENTStart: 02-25-2024 End: 57-39-5480Ahoaig Tahir Morales MD Work Phone: noms CI ENTStart: 02-25-2024 End: 88-72-9451Sxthjj outpatient visit 15 minutesHisravani Morales MD Work Phone: noms CI ENTComment on above:Cancer of base of tongue (CMS/HCC) (Primary Dx)Start: 01-14-2024 End: 40-14-6204dmxqulemciIbkxofxawMcKitrick Hospital Work Phone: Start: 01-14-2024 End: 11-11-9044Plpfluh encounter procedureE[facility] Work Phone: Start: 11-06-2023 End: 69-56-8818Jujrdlu encounter procedureYordan Feliz MD Work Phone: Radiation OncologyComment on above:Head and neck cancer (HCC) (Primary Dx)Start: 10-23-2023 End: 61-61-4569Oivqfq outpatient visit 25 minutesJohn England MD Work Phone: Hematology/OncologyComment on above: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); Lung nodules; Stage 3 chronic kidney disease, unspecified whether stage 3a or 3b CKD (HCC) Start: 10-16-2023 End: 52-36-1703Ynrypegkn Result EncounterGeneric External Data ProviderNOMS External Department UnsolicitedStart: 10-16-2023 End: 67-85-4877Stsuonicq Result EncounterGeneric External Data ProviderNOMS External Department UnsolicitedStart: 93-69-9925Wwjludhdm encounterReaviva Bob RN Work Phone: Hematology/OncologyComment on above:Care Coordination (Results)Start: 10-16-2023 End: 41-07-2284Stdkhanaam hospital visit by physicianArrival Time Radiology Work Phone: Radiology Pet CTComment on above:Lung nodules [R91.8] Start: 06-12-2023 End: 35-88-3317Eksccutrfc hospital visit by physicianArrival Time Radiology Work Phone: Radiology Pet CTComment on above:Cancer of the base of tongue (HCC) [C01]Start: 25-51-0892Dbjkpoz encounter procedureSerene Morales MD Work Phone: [facility] HealthcareStart: 05-08-2023 End: 75-49-9243Bjkdxdd encounter procedureG Jeyson Feliz MD Work Phone: Radiation OncologyComment on above:Other specified disorders of thyroid (Primary Dx)Start: 03-20-2023 End: 80-94-5246Ngkzar outpatient visit 25 minutesVivemagan England MD Work Phone: Hematology/OncologyComment on above: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); Mass of right lungStart: 03-14-2023 End: 34-15-6510Zcadfdkpia hospital visit by physicianArrival Time Radiology Work Phone: Radiology Pet CTComment on above:Lung nodules [R91.8] Start: 02-06-2023 End: 01-05-9232EmqpukJeffry Drake MD Work Phone: Hematology/OncologyComment on above:Hyperlipidemia, unspecified hyperlipidemia type (Primary Dx); Type 2 diabetes mellitus without complication, unspecified whether residential insulin use (HCC); Unspecified essential hypertensionLung nodule seen on imaging study (Primary Dx); Disorder of carbohydrate metabolism (HCC)Start: 02-06-2023 End: 16-87-0209Ebgeoy outpatient visit 25 minutesJohn England MD Work Phone: Hematology/OncologyComment on above: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); Mass of right lung; Lung nodulesStart: 01-29-2023 End: 61-15-4173Eyjyawwcec hospital visit by physicianArrival Time Radiology Work Phone: Radftqyih Pet CTComment on above:Cancer of the base of tongue (HCC) [C01]Start: 11-28-2022 End: 07-25-1651Jyqgjtc encounter procedureG Jeyson Feliz MD Work Phone: Radiation OncologyComment on above: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)Start: 11-07-2022 End: 51-92-6688Pggrex outpatient visit 25 minutesJohn England MD Work Phone: Hematology/OncologyComment on above: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); Chemotherapy-induced neutropenia (HCC); Stage 3 chronic kidney disease, unspecified whether stage 3a or 3b CKD (HCC) Start: 10-31-2022 End: 28-75-3382qobgnftssaVpflz [address] Work Phone: Hematology/OncologyComment on above: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); Stage 3 chronic kidney disease, unspecified whether stage 3a or 3b CKD (HCC) Start: 10-31-2022 End: 79-90-8194Fmpbtaa encounter procedureNatalie Cadena APRN.CONICAL MIXER Work Phone: SANDUSKYComment on above:Head and neck cancer (HCC) (Primary Dx)Start: 10-25-2022 End: 29-38-8100grbwrvqwdlLxzbf Martinez TRAFFIC OPERATOR.CONICAL MIXER Work Phone: Hematology/OncologyComment on above: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); Chemotherapy-induced neutropenia (HCC)Start: 10-25-2022 End: 22-87-2265Jbcebna encounter procedureNatalie Cadena TRAFFIC OPERATOR.CONICAL MIXER Work Phone: SANDUSKYStart: 84-33-2807Pbwmlbj encounter procedureG Jeyson Feliz MD Work Phone: SANDUSKYStart: 34-72-6175Qjfqqllep Oncology NoteG Jeyson Feliz MD Work Phone: Radiation OncologyComment on above:Completion Note Start: 10-19-2022 End: 57-35-8504uebszmmissXrxdcnndgh Ka[address]zel RD Work Phone: sANDUSKYStart: 10-19-2022 End: 70-76-8925Ldjyjbaug therapyJacdavid Gil RD Work Phone: Nutrition TherapyComment on above:Nutrition Counseling Start: 10-19-2022 End: 57-89-3002Jgpads outpatient visit 25 minutesJohn England MD Work Phone: Hematology/OncologyComment on above: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); Chemotherapy-induced neutropenia (HCC)Start: 10-15-2022 End: 27-46-7691Mrtcuyw encounter procedureG Jeyson Feliz MD Work Phone: Radiation OncologyComment on above:Head and neck cancer (HCC) (Primary Dx)Start: 24-15-2469Nngaauhja encounterJohn England MD Work Phone: Radiation OncologyComment on above:skin irritation Start: 10-08-2022 End: 02-53-0311itfgdseicxZbzvy [address] [place] Work Phone: Hematology/OncologyComment on above: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); Cancer of base of tongue (HCC)Start: 10-08-2022 End: 36-71-9090Lruuctr encounter procedureG Jeyson Feliz MD Work Phone: Radiation OncologyComment on above:Head and neck cancer (HCC) (Primary Dx)Start: 10-05-2022 End: 15-74-9654ntijwsggdxDvhsgbpoud Kaadelsoel RD Work Phone: sANDUSKYStart: 10-05-2022 End: 22-00-6713Hyauumjgj therapyJacqueline Louise RD Work Phone: Nutrition TherapyComment on above:Nutrition Counseling Start: 10-01-2022 End: 88-18-5245mbvdmuoikqGlfkz [address] Work Phone: Hematology/OncologyComment on above: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); 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)Start: 10-01-2022 End: 43-77-3127Mdhmocw encounter procedureG Jeyson Feliz MD Work Phone: Radiation OncologyComment on above:Tongue cancer (HCC) (Primary Dx)Start: 09-24-2022 End: 18-15-7262Sgcdrff encounter procedureG Jeyson Feliz MD Work Phone: Radiation OncologyComment on above:Tongue cancer (HCC) (Primary Dx)Start: 09-21-2022 End: 73-95-9135wirnugldjaCqtqwmmqkx Kaetzel RD Work Phone: sANDUSKYStart: 09-21-2022 End: 65-41-2822Qwajewiyf therapyJacdavid Ruddyarmando EVERETT Work Phone: Nutrition TherapyComment on above:Nutrition Assessment Start: 09-17-2022 End: 92-76-0512oxiuxtfhyoFyaqo [address] Work Phone: Hematology/OncologyComment on above: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); Cancer of the base of tongue (HCC)Start: 09-17-2022 End: 41-50-9618Ddmwuxp encounter procedureG Jeyson Feliz MD Work Phone: Radiation OncologyComment on above:Tongue cancer (HCC) (Primary Dx)Start: 09-10-2022 End: 79-61-6235gptlxjhdecRfmoh [address] Work Phone: Hematology/OncologyComment on above: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)Start: 09-10-2022 End: 97-15-0182Xkydsia encounter procedureYordan Feliz MD Work Phone: Radiation OncologyComment on above:Tongue cancer (HCC) (Primary Dx)Start: 56-87-4206Yiyiutjbp encounterMarysol DENG Hematology/OncologyComment on above:Social Work ServicesStart: 09-06-2022 Telephone encounterReaviva Bob RN Work Phone: Hematology/OncologyComment on above:Care Coordination (C1D1 Post Treatment Call)Start: 09-03-2022 End: 38-12-4451ruaxajojtrPvhxq 9 Jose Work Phone: Hematology/OncologyComment on above: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)Start: 09-03-2022 End: 13-19-3166Oytvhn outpatient visit 15 minutesJohn England MD Work Phone: Hematology/OncologyComment on above: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)Start: 09-03-2022 End: 73-82-3803Qwhrqfw encounter procedureYordan Feliz MD Work Phone: Radiation OncologyComment on above:Tongue cancer (HCC) (Primary Dx)Start: 99-90-4488Tchvkvvht encounterRafael Bob RN Work Phone: Hematology/OncologyComment on above:Care Coordination (Pt Questions)Start: 67-91-8347Bnkeukanq encounterRafael Bob RN Work Phone: Hematology/OncologyComment on above:Care Coordination (PET Results)Start: 13-48-3548Mmlfzwqbt encounterRafael Bob RN Work Phone: Hematology/OncologyComment on above:Care Coordination (Pt Questions)Start: 08-27-2022 End: 98-68-9635Ftlbsavoog hospital visit by physicianArrival Time Radiology Work Phone: Radiology Pet CTComment on above: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]Start: 32-64-8041Opmfqdj encounter procedureCcf ProviderCleveland Clinic Hill[facility] DepartmentStart: 08-23-2022 End: 45-96-7909Swperlryuy hospital visit by physicianG Jeyson Feliz MD Work Phone: Radiology Pet CTStart: 08-23-2022 End: 35-61-0930Lfdbcza encounter procedureG Jeyson Feliz MD Work Phone: Radiation OncologyComment on above:Tongue cancer (HCC) (Primary Dx)Start: 43-91-0491Oxfknwobo Oncology NoteG Jeyson Feliz MD Work Phone: Radiation OncologyComment on above:Simulation Note Treatment PlanningStart: 72-80-4083Acfesliao encounterRafael Bob RN Work Phone: Hematology/OncologyComment on above:Care Coordination (Treatment Planning)Start: 37-76-6588Gblvzxrff encounterRafael Bob RN Work Phone: Hematology/OncologyComment on above:Care Coordination (Treatment Planning)Start: 08-20-2022 End: 19-82-9143zjzfllkusvNkzvxkxvpl Kaetzel RD Work Phone: sANDUSKYStart: 08-20-2022 End: 26-04-6685Osmxhcxsc therapyJasoledad Gil RD Work Phone: Nutrition TherapyComment on above:Nutrition Telephone Start: 37-27-7130Ynhciso encounter procedureCcf ProviderCleveland Clinic Hillcrest Hospital DepartmentStart: 08-16-2022 End: 92-42-3328Megqem outpatient new 60 minutesJohn England MD Work Phone: Hematology/OncologyComment on above: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)Start: 45-62-7638Jkpoxjo encounter procedureCcf [facility] DepartmentStart: 98-49-5189Yhuseiwik encounterG Jeyson Feliz MD Work Phone: Radiation OncologyComment on above:Dental Clearance - Radiation TherapyStart: 33-13-2151goomjgtjtnNfahlp Weyer RNRadiation Oncology Comment on above:Patient EducationStart: 08-14-2022 End: 51-26-3443Tdkllhu encounter procedureG Jeyson Feliz MD Work Phone: Radiation OncologyComment on above:Tongue cancer (HCC) (Primary Dx); Head and neck cancer (HCC)Start: 29-55-1086Dnaqovkez for preprocedural laboratory examinationDR SERENE Keyona [facility] Centertart: 07-31-2022 End: 22-71-3963Hkhscyl encounter procedureMichael R NILL General Surgery Nill/Said [place] Start: 07-31-2022 End: 68-85-7903pmaflkduhxRujgfxt R NILLFacility:[facility]ertart: 07-27-2022 End: 86-98-2839juyowvleebYV SERENE TIMMISFacility:Z7Eabaw: 07-27-2022 End: 37-68-7446Injdvymfo for preprocedural laboratory examinationDR SERENE GUZMANMISFacility:M0Yfrta: 07-18-2022 End: 51-16-4897jhmszvdlpjTavpixz R NILLFacility:CD:[id number]: 07-11-2022 End: 46-84-2058nqqjkgxacpJX RENEA PARTIDAFacility:F7Vlbkh: 06-13-2022 End: 20-18-0301aujpqhwhlhAmaxjth R NILLFacility: [place]vueStart: 06-13-2022 End: 20-02-9654Mnxqapq encounter procedureMichael R NILL General Surgery Nill/[place] [place] Start: 06-09-2022 End: 14-93-5959lsyfjihsunLH KIM E KNIGHTFacility:X4Nbbgm: 36-18-4846reyenxiivi Michael NILLFacility: BellevueStart: 02-27-2022 End: 29-77-7212vujbqhehyrVYPeter NELSONFacility:H1 Procedures DateProcedureProcedure DetailPerforming ClinicianStart: 18-04-2084Jadatnr of placement of stent for coronary artery diseaseHistory of heart artery stent Mason Johnson MD Work Phone: Start: 65-39-8508Fgqlw hip unilateral with pelvis 1 viewGeneric External Data ProviderStart: 53-34-8380UHP 12-LEADGeneric External Data ProviderStart: 51-54-1410MPH APTTGeneric External Data ProviderStart: 13-87-8943EVE CMP (CMP) (FOR REMOTE [facility] USE)Generic External Data ProviderStart: 98-73-7756GEBGQV PROTHROMBIN TIME INR W/O COUMGeneric External Data Provider Start: 18-84-4665Jobui hip unilateral with pelvis 2-3 viewsJr. Mechelle Last Stepnaldo DO Work Phone: Start: 54-15-9892Zlp any jt lower extrem w/o contrast matrAlecia Johnson MD Work Phone: Start: 16-28-7503BM LUMBAR SPINE 2 OR 3VDdaisy Johnson MD Work Phone: Start: 03-24-9177Lbtfkeqlzy examination knee 3 views Mason Johnson MD Work Phone: Start: 95-69-2893Sklbnorczb glycosylated e9qSdvamflaron Johnson MD Work Phone: Start: 22-60-5123NSL T3 SERPL-MCNCGeneric External Data ProviderStart: 37-37-1347IGE T4 SERPL-MCNCGeneric External Data Provider Start: 26-64-4589DPL TSH SERPL-ACNCGeneric External Data ProviderStart: 45-77-8316RH NECK SOFT TISSUE W IVCONGeneric External Data ProviderStart: 53-27-7782Fx thorax w/contrast materialGeneric External Data ProviderStart: 81-71-5443TNL CBC W AUTO DIFF BLDGeneric External Data ProviderStart: 10-13-2024 XR CERVICAL SPINE 2-3VDdaisy Johnson MD Work Phone: Start: 21-39-0161BD HIP LT MIN 2VDdaisy Johnson MD Work Phone: Start: 09-17-2024 End: 30-00-9278FDDKBHVFTQJ SKIN LESIONNatalie A Felter TRAFFIC OPERATOR-CONICAL MIXER Work Phone: Start: 19-47-7815Ewgrohuebo glycosylated r5rGjyzciMason Johnson MD Work Phone: Start: 06-77-6101UVCWIIWDJRM SKIN LESIONNatalie A Felter TRAFFIC OPERATOR-CONICAL MIXER Work Phone: Start: 50-56-3340LC NECK SOFT TISSUE W IVCONGeneric External Data ProviderStart: 25-53-2376Dz soft tissue neck w/contrast material John England MD Work Phone: Start: 25-96-7405Dt thorax w/contrast materialJohn England MD Work Phone: Start: 17-37-9460LTX CBC W AUTO DIFF BLDGeneric External Data ProviderStart: 39-32-9166UZK FERRITIN SERPL-MCNCGeneric External Data ProviderStart: 34-15-4661MHN FOLATE SERPL-MCNCGeneric External Data ProviderStart: 12-21-7249LUH IRON+TIBC PNL SERPLGeneric External Data Provider Start: 66-00-1424SRC VIT B12 SERPL-MCNCGeneric External Data ProviderStart: 56-20-1880Xhedv count complete auto&auto difrntl Angélica England MD Work Phone: Start: 77-09-9438CGP LIPID PROFILE (FASTING)Shaikh Vidal WELCH Work Phone: Start: 06-45-7050YT NECK SOFT TISSUE W IVCONGeneric External Data ProviderStart: 99-69-3214Hb soft tissue neck w/contrast material John England MD Work Phone: Start: 29-41-9126Id thorax w/contrast Ozzy England MD Work Phone: Start: 85-43-8058Wckxi count complete auto&auto difrntl Angélica England MD Work Phone: Start: 66-78-0870El thorax w/contrast Ozzy England MD Work Phone: Start: 06-54-6332Ti thorax w/contrast Ozzy England MD Work Phone: Start: 75-89-5955Vrs imaging ct attenuation skull base mid-thighG Jeyson Feliz MD Work Phone: Start: 43-00-5357Cviu bld gluc mntr dev cleared fda spec home useCcf ProviderStart: 67-94-3524LNA + DIFFJohn England MD Work Phone: Start: 32-81-5430Eilxboqkjingq metabolic panelJohn England MD Work Phone: Start: 27-79-3737Obgrp count complete auto&auto difrntl wbcJohn England MD Work Phone: Start: 22-71-3873Qtlvi count complete auto&auto difrntl wbcVivek Jacquelyn WELCH Work Phone: Start: 33-85-3320Kxa imaging ct attenuation skull base mid-thighG Jeyson Feliz MD Work Phone: Start: 70-78-7575Uyox bld gluc mntr dev cleared fda spec home useCcf ProviderStart: 49-60-5475QBO screeningDR MANNIE NELSONComment on above:Performed By: #### PSAD #### [facility] [address] [place] [address] Dr. Mikayla GalanStart: 68-58-5049SoybatluuamCmzueac NILL Start: 61-87-2984UuqscmtsxaqFdgnfjg NILL Start: 47-72-1248MvybnxaccxiMhzukxl NILL Start: 17-92-8603ArvihmytnaqAhnlrgt NILL Start: 44-96-3353Bldmwny catheterizationMichael NILL Start: 92-55-1039Azjjkvqbf of stent in cardiac conduit Renea NILL Start: 64-15-0519DgheeiswcupYndilck NILL Start: 88-40-5005QeltrsmhcoyDfsnerf NILL Start: 53-20-7314Vnsrgzf colectomyMichael NILL Comment on above:with colocolostomyBilateral extraction of cataractsMichael NILL Plan of Treatment DateCare ActivityDetailAuthorStart: 43-41-4607Sonjokoq ScreeningDiabetes ScreeningAberdeen Proving Ground ClinicStart: 13-79-8594Rdwcmjas ScreeningDiabetes Screening [facility] ClinicStart: 02-53-4071Awmhqent ScreeningDiabetes ScreeningUniversity Hospitals Portage Medical Centertart: 14-46-0524Vifyx screening for proteinDiabetes: Urine Protein ScreeningUTAH VALLEY [facility]OSPITAL HealthcareStart: 62-99-4257QHIIGHPU SCREENDIABETES SCREENUniversity Hospitals Portage Medical Centertart: 92-09-4309Joqqfymd ScreeningDiabetes ScreeningCleveland Clinic Hillcrest Hospital Start: 95-71-8410YZULIJXL SCREENDIABETES SCREENUniversity Hospitals Portage Medical Centertart: 10-31-2025 DIABETES SCREENDIABETES SCREENUniversity Hospitals Portage Medical Centertart: 45-13-3155DJQGNOQJ SCREEN DIABETES SCREENUniversity Hospitals Portage Medical Centertart: 04-98-2335HCWHHETY SCREENDIABETES SCREEN [facility] Centertart: 14-10-2604RUWEQFDG SCREENDIABETES SCREENCleveland Clinic Hillcrest Hospital Start: 13-42-1228ZIPBBRPD SCREENDIABETES SCREENUniversity Hospitals Portage Medical Centertart: 09-24-2025 DIABETES SCREENDIABETES SCREENUniversity Hospitals Portage Medical Centertart: 93-46-8550SYDGVWQK SCREEN DIABETES SCREENUniversity Hospitals Portage Medical Centertart: 54-60-5880VIMTOORY SCREENDIABETES SCREEN [facility] Centertart: 20-39-7875CZILYRZO SCREENDIABETES SCREENCleveland Clinic Hillcrest Hospital Start: 02-24-2026Medicare Annual Wellness (AWV)Medicare Annual Wellness (AWV) [facility] HealthcareStart: 79-58-9585IHALVFGY SCREENDIABETES SCREENCleveland Clinic Hillcrest Hospital Start: 07-20-2025 End: 74-35-5619Hheuooy encounter zxoupljor80/13/2026 8:30 AM EST Office Visit [facility] [place] [facility] [address] [facility] [address] [place] [address] Serene Morales MD [address] [place] [address] NOMJanell Fleming OtolaryngologyStart: 06-16-2025 End: 67-08-5142Ydykdof encounter gteesbqal81/10/2025 1:00 PM EST Office Visit [facility] [address] [id number] Jr. Mechelle Boyer DO [address] [place] [address] QUIANA Garcia OrthopaedicsStart: 88-40-3676Ockedtnasu A1c measurementDiabetes: Hemoglobin E8PVHVDSaint Joseph Health Center Start: 05-28-2025 End: 24-27-1438Nwxkitf encounter ghxermiuz02/21/2025 10:00 AM EST Office Visit QU[facility] [address] [place] [address] Beto Salinas PA [address] [place] [address] [facility]ITALJanell Meyer OrthopaedicsStart: 05-25-2025 End: 64-17-1061Mjwnbam encounter procedureNO [facility] DERMStart: 05-06-2025 End: 88-56-8838MCR W Auto Differential panel - BloodCOMPLETE BLOOD COUNT AND DIFFERENTIAL Lab Routine 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 Stage 3 chronic kidney disease, unspecified whether stage 3a or 3b CKD (HCC) Expected: 05/06/2025 (Approximate), Expires: 11/04/2025[facility] Work Phone: Comment on above:Expected: 05/06/2025 (Approximate), Expires: 11/04/2025Start: 05-06-2025 End: 00-17-8164Fmknmeeelpakt metabolic 2000 panel - Serum or PlasmaCOMPREHENSIVE METABOLIC PANEL Lab Routine 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 Stage 3 chronic kidney disease, unspecified whether stage 3a or 3b CKD (HCC) Expected: 05/06/2025 (Approximate), Expires: 11/04/2025[facility] HospitalComment on above:Expected: 05/06/2025 (Approximate), Expires: 11/04/2025Start: 05-06-2025 End: 42-04-8482FO Chest W contrast IVCT CHEST W IVCON Radiology Routine 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 Stage 3 chronic kidney disease, unspecified whether stage 3a or 3b CKD (HCC) Expected: 05/06/2025 (Approximate), Expires: 12/04/2025leveland ClinicComment on above:Expected: 05/06/2025 (Approximate), Expires: 12/04/2025Start: 05-06-2025 End: 04-75-1061CV Neck W contrast IVCT NECK SOFT TISSUE W IVCON Radiology Routine 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 Stage3 chronic kidney disease, unspecified whether stage 3a or 3b CKD (HCC) Expected: 05/06/2025 (Approximate), Expires: 12/04/2025leveland ClinicComment on above:Expected: 05/06/2025 (Approximate), Expires: 12/04/2025Start: 05-06-2025 End: 47-81-5091Rvecgpm encounter pucsqgnwf58/30/2025 10:30 AM EDT Office Visit Radiation Oncology [address] [place] [address] [place] [address] Yordan Feliz MD [address] [place] [address] [place] [address] 3 month follow upRadiation OncologyComment on above:3 month follow upStart: 05-06-2025 End: 21-35-6603Kbliyo-up kctknjjva65/30/2025 10:00 AM EDT Visit (SP) Office Hematology/Oncology [address] [place] [address] [place] [address] John England MD [address] [facility] [place] [address] 6 MON[address] FOLLOW UP AFTER CT SCANHematology/OncologyComment on above:6 MONTH FOLLOW UP AFTER CT SCANStart: 05-03-2025 End: 77-09-2849Kskgjyo encounter /27/2025 1:00 PM EDT [facility] [address] [place] [phone] Michael Murray, CRYS [address] [place] [address] [facility]icsStart: 04-30-2025 End: 99-07-4191BQ Heart Perfusion W single state of exerciseStress test with myocardial perfusion Cardiac Nuclear Medicine Routine Primary osteoarthritis of left hip 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, without long-term current use of insulin (HCC) Coronary artery disease involving [place] coronary artery of [place] heart without angina pectoris Abnormal EKG History of heart artery stent Expected: 04/30/2025 (Approximate), Expires: 04/30/2027[facility] Work Phone: Comment on above:Expected: 04/30/2025 (Approximate), Expires: 04/30/2027Start: 04-30-2025 End: 03-57-2929Rvucsmf encounter zxuxhqlrq04/24/2025 11:45 AM EDT Office Visit [facility] [address] [facility] [address] [place] [phone] Mason Johnson MD [address] [facility] [address] [place], [place] [phone] NOM [place] [facility] CentereStart: 04-29-2025 Bacteria identified in Urine by CultureUrine CultureDayton Osteopathic Hospitaltart: 70-16-6527Weexj cultureDayton Osteopathic Hospitaltart: 04-29-2025 End: 44-63-5237Lwwiirn encounter qiedfinec16/23/2025 9:15 AM EDT Appointment Radiology Pet CT [address] [place] [address] [place] [address] CT CHEST AND NECKRadiology Pet CTComment on above:CT CHEST AND NECKStart: 04-28-2025 End: 58-99-9246gVAH in Blood by Coagulation assayAPTT Lab Routine Primary osteoarthritis of left hip Pre-op evaluation Expected: 04/28/2025, Expires: 04/28/2026[facility] [employer] Work Phone: Comment on above:Expected: 04/28/2025, Expires: 04/28/2026Start: 04-28-2025 End: 98-41-7991Ubyzdmhz identified in Urine by CultureUrine culture Microbiology Routine Primary osteoarthritis of left hip Pre-op evaluation Expected: (Approximate), Expires: 04/28/2026NOMS HealthcareComment on above: Expected: 04/28/2025 (Approximate), Expires: 04/28/2026Start: 04-28-2025 End: 86-14-7100DUO W Auto Differential panel - BloodCBC and differential Lab Routine Primary osteoarthritis of left hip Pre-op evaluation Expected: 04/08 (Approximate), Expires: 04/28/2026N[facility] HealthcareComment on above: Expected: 04/28/2025 (Approximate), Expires: 04/28/2026Start: 04-28-2025 End: 28-44-9401Ocdxwtmoilowj metabolic 2000 panel - Serum or PlasmaComprehensive metabolic panel Lab Routine Primary osteoarthritis of left hip Pre-op evaluation Expected: 04/28/2025 (Approximate), Expires: 04/28/2026NO HealthcareComment on above:Expected: 04/28/2025 (Approximate), Expires: 04/28/2026Start: 04-28-2025 End: 10-18-6554XED 12 leadECG 12 lead ECG Routine Primary osteoarthritis of left hip Pre-op evaluation Expected: 04/28/2025 (Approximate), Expires: 04/28/2026 [facility] HealthcareComment on above:Expected: 04/28/2025 (Approximate), Expires: 04/28/2026Start: 04-28-2025 End: 87-22-0597Wwsjqvclvuq time (PT) in Blood by Coagulation assayProtime-INR Lab Routine Primary osteoarthritis of left hip Pre-op evaluation Expected: 04/28/2025 (Approximate), Expires: 04/28/2026[facility] HealthcareComment on above: Expected: 04/28/2025 (Approximate), Expires: 04/28/2026Start: 04-28-2025 End: 05-15-4330Eoucoweref complete panel - UrineUrinalysis with reflex microscopic Lab Routine Primary osteoarthritis of left hip Pre-op evaluation Expected: 04/28/2025 (Approximate), Expires: 04/28/2026[facility] HealthcareComment on above:Expected: 04/28/2025 (Approximate), Expires: 04/28/2026Start: 04-28-2025 End: 78-51-0802HI Hip - left 3 ViewsXR hip left 2 or 3 views Imaging Routine Primary osteoarthritis of left hip Pre-op evaluation Expected: 04/28/2025, Expires: 04/28/2026[facility] HealthcareComment on above:Expected: 04/28/2025, Expires: 04/28/2026Start: 04-28-2025 End: 20-87-7751Oedogcd encounter procedureNOMS Jose OrthopaedicsComment on above:ArrivedStart: 44-42-6624Xsfardzo blood countHemoglobin/HematocritUniversity Hospitals Portage Medical Centertart: 72-88-0877Simsosgcpe measurementSerum CreatinineCleveland Clinic Hillcrest Hospital Start: 04-20-2025 End: 11-71-9198Fmhmytn encounter procedureNOMS CI ENTComment on above:Arrived Start: 04-14-2025 End: 81-95-4000Pnsdwyy encounter mwipwafol79/08/2025 1:15 PM EDT Office Visit [facility] [address] [place], [place] Jr. Mechelle Boyer, DO [address] [place] [address] Left hip pain; Pseudogout involving multiple joints; Primary osteoarthritis of left hipNOMS [facility] Comment on above:Left hip pain; Pseudogout involving multiple joints; Primary osteoarthritis of left hipStart: 03-26-2025 End: 81-29-1510Jypktovlcyyzt metabolic 2000 panel - Serum or PlasmaComprehensive metabolic panel Lab Routine Primary hypertension 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, without long-term current use of insulin (HCC) Moderate mixed hyperlipidemia not requiring statin therapy Expected: 03/26/2025 (Approximate), Expires: 03/26/2026NOM[facility] HealthcareComment on above:Expected: 03/26/2025 (Approximate), Expires: 03/26/2026Start: 03-26-2025 End: 85-56-7055Xcowi 1996 panel - Serum or PlasmaLipid panel Lab Routine Primary hypertension 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, without long-term current use of insulin (HCC) Moderate mixed hyperlipidemia not requiring statin therapy Expected: 03/26/2025 (Approximate), Expires: 03/26/2026[facility] Work Phone: Comment on above:Expected: 03/26/2025 (Approximate), Expires: 03/26/2026Start: 03-26-2025 End: 09-24-9477Kwgjlixijuhf/Creatinine panel in random UrineMicroalbumin / creatinine, urine ratio Lab Routine Primary hypertension 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, without long-term current use of insulin (HCC) Moderate mixed hyperlipidemia not requiring statin therapy Expected: 03/26/2025 (Approximate), Expires: 03/26/2026N[facility] HealthcareComment on above:Expected: 03/26/2025 (Approximate), Expires: 03/26/2026Start: 03-26-2025 End: 72-47-5109Axpqjtq encounter procedureNOMS [place] [facility] MedinceComment on above:ArrivedStart: 07-40-3826Mnavefrjk vaccinationInfluenza Vaccine (#1)[facility]OM[facility] HealthcareStart: 68-46-8533Vwdbnomowl A1c measurementDiabetes: Hemoglobin A1C NOMS HealthcareStart: 01-19-2025 End: 46-70-3632Laubmdc encounter wtgvgbelu48/15/2025 8:00 AM EDT Office Visit [facility] [address] [facility] [address] [place] [address] Serene Morales MD [address] [facility] [address] [place] [address] NOMS CI ENTStart: 01-06-2025 End: 45-49-6261Xelznen encounter procedureNOMS CI FMComment on above:Left hip painStart: 12-28-2024 End: 46-22-9349BI Lumbar spine 2 or 3 ViewsXR lumbar spine 2 or 3 views Imaging Routine Left hip pain Expected: 12/28/2024, Expires: 12/28/2025[facility] Work Phone: Comment on above:Expected: 12/28/2024, Expires: 12/28/2025Start: 12-28-2024 End: 11-10-1945Rweitxp encounter nlfigekvd59/23/2025 9:30 AM EDT Office Visit [facility] CI [address] [facility] [address] [place] [phone] Mason Johnson MD [address] [facility] [address] [place] [address] NOMS CI FMStart: 12-09-2024 End: 12-09-2025 reactive protein [Mass/volume] in Serum or PlasmaC-reactive protein Lab Routine Inflammatory arthritis Expected: 12/09/2024 (Approximate), Expires: 12/09/2025[facility] HealthcareComment on above:Expected: 12/09/2024 (Approximate), Expires: 12/09/2025Start: 12-09-2024 End: 51-61-3817Skzxnoiolxi sedimentation rateSedimentation rate, automated Lab Routine Inflammatory arthritis Expected: 12/09/2024 (Approximate), Expires: 12/09/2025N[facility] HealthcareComment on above:Expected: 12/09/2024 (Approximate), Expires: 12/09/2025Start: 12-09-2024 End: 70-57-0230Rwmivyw Ab [Titer] in Serum by ImmunofluorescenceANA Lab Routine Inflammatory arthritis Expected: 12/09/2024 (Approximate), Expires: 12/09/2025 [facility] HealthcareComment on above:Expected: 12/09/2024 (Approximate), Expires: 12/09/2025Start: 12-09-2024 End: 00-06-5167NVXUYYNCCP ARTHRITIS DIAGNOSTIC PANEL 3RHEUMATOID ARTHRITIS DIAGNOSTIC PANEL 3 Lab Routine Inflammatory arthritis Expected: 12/09/2024 (Ce roximate), Expires: 12/09/2025[facility] Work Phone: Comment on above:Expected: 12/09/2024 (Approximate), Expires: 12/09/2025Start: 12-09-2024 End: 73-75-9080Oesjk [Mass/volume] in Serum or PlasmaUric acid Lab Routine Inflammatory arthritis Expected: 12/09/2024 (Approximate), Expires: 12/09/2025 [facility] HealthcareComment on above:Expected: 12/09/2024 (Approximate), Expires: 12/09/2025Start: 12-09-2024 End: 28-69-0559YE Knee - left 3 ViewsXR knee 3 views left Imaging Routine Effusion of left knee Acute pain of left knee Expected: 12/09/2024, Expires: 12/09/2025N[facility] HealthcareComment on above:Expected: 12/09/2024, Expires: 12/09/2025Start: 12-09-2024 End: 35-56-6017Mlahlgm encounter procedureNOMS CI FMComment on above:Arrived Start: 12-04-2024 End: 76-89-7335Aypjqzcuzkp [Units/volume] in Serum or PlasmaTHYROID STIMULATING HORMONE Lab Routine Acquired hypothyroidism Expected: 12/04/2024, Expires: 11/04[facility] Work Phone: Comment on above:Expected: 12/04/2024, Expires: 11/04/2025Start: 12-04-2024 End: 82-20-8919Pqxzbuoyx (T4) [Mass/volume] in Serum or PlasmaT4/THYROXINE Lab Routine Acquired hypothyroidism Expected: 12/04/2024, Expires: 11/04/2025 [facility] HospitalComment on above:Expected: 12/04/2024, Expires: 11/04/2025Start: 12-04-2024 End: 21-56-2690Zwvlvfxbrbjmrzun (T3) [Mass/volume] in Serum or PlasmaT3 Lab Routine Acquired hypothyroidism Expected: 12/04/2024, Expires: 11/04/2025 [facility] HospitalComment on above:Expected: 12/04/2024, Expires: 11/04/2025Start: 12-02-2024 End: 04-04-6996Wicuezo encounter wxquqeuhc51/28/2025 11:30 AM EDT Office Visit [facility] [address] [place] [address] [place] [address] labNortGarden City Hospital LaboratoryComment on above:labStart: 11-04-2024 End: 30-03-7697MFS W Auto Differential panel - BloodCOMPLETE BLOOD COUNT AND DIFFERENTIAL Lab Routine 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 Stage 3 chronic kidney disease, unspecified whether stage 3a or 3b CKD (HCC) Expected: 11/04/2024 (Approximate), Expires: 05/06/2025[facility] ClinicComment on above: Expected: 11/04/2024 (Approximate), Expires: 05/06/2025Start: 11-04-2024 End: 87-85-4795Laqhqnrnlymwe metabolic 2000 panel - Serum or PlasmaCOMPREHENSIVE METABOLIC PANEL Lab Routine 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 Stage 3 chronic kidney disease, unspecified whether stage 3a or 3b CKD (HCC) Expected: 11/04/2024 (Approximate), Expires: 05/06/2025leveland ClinicComment on above:Expected: 11/04/2024 (Approximate), Expires: 05/06/2025Start: 11-04-2024 End: 50-91-7966FK Chest W contrast IVCT CHEST W IVCON Radiology Routine 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 Stage 3 chronic kidney disease, unspecified whether stage 3a or 3b CKD (HCC) Expected: 11/04/2024 (Approximate), Expires: 06/05/2025[facility] ClinicComment on above:Expected: 11/04/2024 (Approximate), Expires: 06/05/2025Start: 11-04-2024 End: 30-43-6300KI Neck W contrast IVCT NECK SOFT TISSUE W IVCON Radiology Routine 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 Stage3 chronic kidney disease, unspecified whether stage 3a or 3b CKD (HCC) Expected: 11/04/2024 (Approximate), Expires: 06/05/2025[facility] Work Phone: Comment on above:Expected: 11/04/2024 (Approximate), Expires: 06/05/2025Start: 11-04-2024 End: 46-39-8230Bgszmte encounter jtvbiljpu18/30/2025 11:45 AM EDT Office Visit Radiation Oncology [address] [place] [address] [place] [address] Yordan Feliz MD [address] [facility] [place] [address] 6 month Follow upRadiation OncologyComment on above:6 month Follow upStart: 11-04-2024 End: 45-66-0739ewlzsgmvhh87/30/2025 11:20 AM EDT Visit (SP) Office Hematology/Oncology [address] [place] [address] [place] [address] John England MD [address] [facility] [place] [address] PT SEES DENA BEFORE SINCERE TODAYHematology/OncologyComment on above:PT SEES DENA BEFORE SINCERE TODAYStart: 10-28-2024 End: 82-86-8943Xesqxdz encounter /23/2025 7:45 AM EDT Appointment Radiology Pet CT [address] [facility] [place] [address] CT CHEST AND NECKRadiology Pet CTComment on above:CT CHEST AND NECKStart: 10-26-2024 End: 22-96-4746Osgqjtt encounter procedureNOMS CI FMComment on above:Neck pain on left side; Left hip painStart: 10-20-2024 End: 93-78-5750Pdzkefm encounter /15/2025 8:00 AM EDT Office Visit [facility] ENT [address] [facility] [place] [address] [place] [phone] Serene Morales MD [address] [facility] [address] [place] [address] NOMS CI ENTStart: 16-44-8076Syctsskz blood count Hemoglobin/HematocritAberdeen Proving Ground ClinicStart: 05-99-7913Nkdqihwqfg measurement Serum CreatinineUniversity Hospitals Portage Medical Centertart: 10-12-2024 End: 28-05-3999Mqwxjxc encounter bonkrtnys55/07/2025 3:45 PM EDT Office Visit [facility] FM [address] [facility] [place] [address] [place] [phone] Mason Johnson MD [address] [facility] [address] [place] [address] ArrivedNOMS CI FMComment on above:ArrivedStart: 10-12-2024 End: 49-92-5133EG Cervical spine 2 or 3 ViewsXR cervical spine 2 or 3 views Imaging Routine Neck pain on left side Expected: 10/12/2024, Expires: 10/12/2025 NOMS HealthcareComment on above:Expected: 10/12/2024, Expires: 10/12/2025Start: 10-12-2024 End: 76-43-4112NZ Hip - left 3 ViewsXR hip left 2 or 3 views Imaging Routine Left hip pain Expected: 10/12/2024, Expires: 10/12/2025[facility] Work Phone: Comment on above:Expected: 10/12/2024, Expires: 10/12/2025Start: 29-07-8433Eupdtdnr screeningDiabetes: Retinopathy ScreeningNOMS HealthcareStart: 08-31-2024 End: 58-95-1546Azfbqsy encounter procedureNOMS CI FMComment on above:Arrived Start: 07-21-2024 End: 93-09-2834Strfhwy encounter procedureNOMS CI ENTComment on above:Arrived Start: 57-16-7819Qmvdpml Directive DiscussionAdvance Directive Discussion [facility]art: 06-16-2024 End: 92-72-4092Dcmuiqh encounter dhwugjiqn10/10/2024 9:00 AM EST Office Visit [facility] ENT [address] [facility] [address] [place] [address] Serene Morales MD [address] [facility] [address] [place] [address] NOMS CI ENTStart: 12-04-2024Medicare Annual Wellness (AWV)Medicare Annual Wellness (AWV)NOMS HealthcareStart: 25-21-2454Jckrnvuzyqef Vaccine: 65+ Years (1 of 2 - PCV)Pneumococcal Vaccine: 65+ Years (1 of 2 - PCV) NOMS HealthcareComment on above:Postponed from 10[birth year]31/1951 (Patient Refused) Start: 05-26-2024 End: 58-87-0834Daubofg encounter /19/2024 10:20 AM EST Office Visit [facility] DERM [address] [place] [phone] Barry Stevens, TRAFFIC OPERATOR-CONICAL MIXER [address] [place] [address] NOMS SWS DERMStart: 42-49-7728Bmehrjqaqr A1c measurementDiabetes: Hemoglobin H5QBOMY HealthcareStart: 05-19-2024 End: 91-12-0243Lrmelgq encounter dmpcinmvr46/12/2024 9:00 AM EST Office Visit [facility] [address] [place] [place] [address] Serene Morales MD [address] [place] [address] NOMS CI ENTStart: 05-06-2024 End: 72-26-4418enseryozzv61/30/2024 3:20 PM EDT Visit (SP) Office Hematology/Oncology [address] [facility] [address] [place], [place] [phone] John England MD [address] [facility] [place] [address] PT SEES DENA BEFORE SINCERE TODAYHematology/OncologyComment on above:PT SEES DENA BEFORE SINCERE TODAYStart: 05-06-2024 End: 28-92-0569Fvsbtry encounter igejljmca92/30/2024 3:00 PM EDT Office Visit Radiation Oncology [address] [facility] [place] [address] Yordan Feliz MD [address] [facility] [place] [address] PT SEES SINCERE AFTER THIS APPTRadiation OncologyComment on above:PT SEES SINCERE AFTER THIS APPTStart: 04-30-2024 End: 20-79-8290Vuxsrei encounter procedureNOMS CI FMComment on above:Arrived Start: 04-29-2024 End: 07-85-1694Yczknnn encounter utlaqhtob92/23/2024 10:30 AM EDT Office Visit Radiation Oncology [address] [place] [address] [place] [address] Yordan Feliz MD [address] [place] [address] [place] [address] FollowupRadiation OncologyComment on above:FollowupStart: 04-29-2024 End: 99-73-9270Veryfx-up awtpwfikx40/23/2024 10:00 AM EDT Visit (SP) Office Hematology/Oncology [address] [place] [address] [place] [address] John England MD [address] [place] [address] [place] [address] 6 month follow up after scansHematology/OncologyComment on above:6 month follow up after scansStart: 04-23-2024 End: 37-85-0986DKJ W Auto Differential panel - BloodCOMPLETE BLOOD COUNT AND DIFFERENTIAL Lab Routine 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 Ex pected: 04/23/2024 (Approximate), Expires: 10/22/2024[facility] Work Phone: Comment on above:Expected: 04/23/2024 (Approximate), Expires: 10/22/2024Start: 04-23-2024 End: 46-08-8836Fdmhsssge (Vitamin B12) [Mass/volume] in Serum or PlasmaVITAMIN B12 Lab Routine 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 Expected: 04/23/2024 (Approximate), Expires: 10/22/2024[facility] Work Phone: Comment on above:Expected: 04/23/2024 (Approximate), Expires: 10/22/2024Start: 04-23-2024 End: 51-07-4406Szxjvxfnituqu metabolic 2000 panel - Serum or PlasmaCOMPREHENSIVE METABOLIC PANEL Lab Routine 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 Expected:04/23/2024 (Approximate), Expires: 10/22/2024[facility] Work Phone: Comment on above:Expected: 04/23/2024 (Approximate), Expires: 10/22/2024Start: 04-23-2024 End: 74-88-7620YL Chest W contrast IVCT CHEST W IVCON Radiology Routine 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 Expected: 04/23/2024 (Approximate), Expires: 11/21/2024[facility] Work Phone: Comment on above:Expected: 04/23/2024 (Approximate), Expires: 11/21/2024Start: 04-23-2024 End: 96-48-9673YK Neck W contrast IVCT NECK SOFT TISSUE W IVCON Radiology Routine 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 Expected: 04/23/2024 (Approximate), Expires: 11/21/2024[facility] Work Phone: Comment on above:Expected: 04/23/2024 (Approximate), Expires: 11/21/2024Start: 04-23-2024 End: 85-39-4480Bxrlhxvc [Mass/volume] in Serum or PlasmaFERRITIN Lab Routine 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 Expected: 04/23/2024 (Approxima te), Expires: 10/22/2024[facility] Work Phone: Comment on above:Expected: 04/23/2024 (Approximate), Expires: 10/22/2024Start: 04-23-2024 End: 07-11-3958Ekkysh [Mass/volume] in Serum or PlasmaFOLATE, SERUM Lab Routine 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 Expected: 04/23/2024 (Appr oximate), Expires: [address] [place] [address] Work Phone: Comment on above:Expected: 04/23/2024 (Approximate), Expires: 10/22/2024Start: 04-23-2024 End: 68-64-7731Tjgx and Iron binding capacity panel - Serum or PlasmaIRON AND TIBC Lab Routine 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 Expected: 04/23/2024 (Approximate), Expires: 10/22/2024[facility] Work Phone: Comment on above:Expected: 04/23/2024 (Approximate), Expires: 10/22/2024Start: 04-23-2024 End: 28-07-1038Dclnrgd encounter bjrqtmigq90/17/2024 8:15 AM EDT Appointment Radiology Pet CT [address] [place] [address] [place] [address] CT CHEST AND NECKRadiology Pet CTComment on above:CT CHEST AND NECKStart: 04-21-2024 End: 81-05-7545Zvcwnuy encounter fvssaivlb96/15/2024 9:00 AM EDT Office Visit [facility] [address] [facility] [address] [place] [address] Serene Morales MD [address] [facility] [address] [place] [address] NOMS CI ENTStart: 03-24-2024 End: 29-23-3885Kacquvq encounter procedureNOMS CI ENTComment on above:Arrived Start: 13-53-8745Sjrfv-19 Vaccine ( season)Covid-19 Vaccine ()[facility]: 18-06-5161Tdxrn-19 Vaccine ( season)Covid-19 Vaccine ( season)[facility]: 03-08-2024 Influenza vaccinationUniversity Hospitals Portage Medical Centertart: 80-57-0390WFNHQ CREATININESERUM CREATININEAberdeen Proving Ground ClinicStart: 05-27-0092Iqcdy screening for proteinDiabetes: Urine Protein ScreeningNOOK HealthcareStart: 37-19-9232YKHTG CREATININESERUM CREATININEUniversity Hospitals Portage Medical Centertart: 11-06-2023 End: 15-01-7973Tharthbrsky [Units/volume] in Serum or PlasmaTSH BLD Lab Routine Other specified disorders of thyroid Expected: 11/06/2023 (Approximate), Expires : 02/05/2024[facility] Work Phone: Comment on above:Expected: 11/06/2023 (Approximate), Expires: 02/05/2024Start: 11-06-2023 End: 64-96-7818Ixgfcfdar (T4) free [Mass/volume] in Serum or PlasmaT4 FREE/FREE THYROX Lab Routine Other specified disorders of thyroid Expected: 11/06/2023 (Approximate), Expires: 02/05/2024[facility] Work Phone: Comment on above:Expected: 11/06/2023 (Approximate), Expires: 02/05/2024Start: 11-06-2023 End: 49-19-2041Pwmyywdrdveixpso (T3) [Mass/volume] in Serum or PlasmaT3 BLD Lab Routine Other specified disorders of thyroid Expected: 11/06/2023 (Approximate), Expires: 02/05/2024[facility] Work Phone: Comment on above:Expected: 11/06/2023 (Approximate), Expires: 02/05/2024Start: 88-19-1100QTDROSYQRD/HEMATOCRITHEMOGLOBIN/HEMATOCRIT [facility]: 06-43-9655LWGDU CREATININESERUM CREATININEUniversity Hospitals Portage Medical Centertart: 57-33-7245Pgffpls Directive DiscussionAdvance Directive Discussion [facility]art: 44-34-8589Zxshswrztu Health ScreeningBehavioral Health ScreeningUniversity Hospitals Portage Medical Centertart: 06-19-2023 End: 32-57-6316TVS W Auto Differential panel - BloodCBC + DIFF Lab Routine Cancer of the base of tongue (HCC) Mass of right lung Expected: 06/19/2023 (A pproximate), Expires: 03/20/2024[facility] Work Phone: Comment on above:Expected: 06/19/2023 (Approximate), Expires: 03/20/2024Start: 06-19-2023 End: 79-97-9040Wsvysbodkovzj metabolic 2000 panel - Serum or PlasmaCOMP METABOLIC PANEL Lab Routine Cancer of the base of tongue (HCC) Mass of right lung Expected: 06/19/2023 (Approximate), Expires: 03/20/2024[facility] Work Phone: Comment on above:Expected: 06/19/2023 (Approximate), Expires: 03/20/2024Start: 06-19-2023 End: 47-00-8624GN CHEST W IVCONCT CHEST W IVCON Radiology Routine Cancer of the base of tongue (HCC) Mass of right lung Expected: 06/19/2023 (Approximate), Expires: 04/18/2024[facility] Work Phone: Comment on above:Expected: 06/19/2023 (Approximate), Expires: 04/18/2024Start: 03-13-2023 End: 34-85-8589OM CHEST W IVCONCT CHEST W IVCON Radiology Routine Lung nodules Expected: 03/13/2023 (Approximate), Expires: 03/07/2024[facility] Work Phone: Comment on above:Expected: 03/13/2023 (Approximate), Expires: 03/07/2024Start: 97-62-6319Ngihv-19 Vaccine (2022- season)Covid- 19 Vaccine ( season)[facility]: 70-88-4392Tpcekvhgn vaccinationUniversity Hospitals Portage Medical Centertart: 02-06-2023 End: 95-69-8465QLEIVZN/CREAT RATIO RND URPremier Health Work Phone: Comment on above:Expected: 02/06/2023, Expires: 04/08/2023Start: 02-06-2023 End: 44-34-5427Dkdempufwc [Mass/volume] in Urine collected for unspecified durationPremier Health Work Phone: Comment on above:Expected: 02/06/2023, Expires: 04/08/2023Start: 02-06-2023 End: 82-78-5871Swghkkjxik A1c in BloodPremier Health Work Phone: Comment on above:Expected: 02/06/2023, Expires: 04/08/2023Start: 02-06-2023 End: 01-71-7016Rxund 1996 panel - Serum or PlasmaPremier Health Work Phone: Comment on above:Expected: 02/06/2023, Expires: 04/08/2023Start: 01-30-2023 End: 85-95-6185ANF W Auto Differential panel - BloodCBC + DIFF Lab Routine Cancer of the base of tongue (HCC) Chemotherapy-induced neutropenia (HCC) Exp ected: 01/30/2023 (Approximate), Expires: 11/08/2023[facility] Work Phone: Comment on above:Expected: 01/30/2023 (Approximate), Expires: 11/08/2023Start: 01-30-2023 End: 53-87-6638Foublcdelgybb metabolic 2000 panel - Serum or PlasmaCOMP METABOLIC PANEL Lab Routine Cancer of the base of tongue (HCC) Chemotherapy- induced neutropenia (HCC) Expected: 01/30/2023 (Approximate), Expires: 11/08/2023[facility] Work Phone: Comment on above:Expected: 01/30/2023 (Approximate), Expires: 11/08/2023Start: 01-28-2023 End: 44-29-7296UV PET/CT SKULL-THIGH SUBSEQUENTNM PET/CT SKULL-THIGH SUBSEQUENT Radiology Routine Cancer of the base of tongue (HCC) Expected: 01/28/2023, Expires: 12/28/2023[facility] Work Phone: Comment on above:Expected: 01/28/2023, Expires: 12/28/2023Start: 11-08-2022 End: 08-66-3450JMO W Auto Differential panel - BloodCBC + DIFF Lab Routine Cancer of the base of tongue (HCC) Expected: 11/08/2022, Expires: 01/08/2023 [facility] Work Phone: Comment on above:Expected: 11/08/2022, Expires: 01/08/2023Start: 11-08-2022 End: 88-50-2853Ozvwvykgqvicd metabolic 2000 panel - Serum or PlasmaCOMP METABOLIC PANEL Lab Routine Cancer of the base of tongue (HCC) Expected: 11/08/2022, Expires: 01/08/2023[facility] Work Phone: Comment on above:Expected: 11/08/2022, Expires: 01/08/2023Start: 10-26-2022 End: 66-34-5468QGV W Auto Differential panel - BloodCBC + DIFF Lab Routine Cancer of the base of tongue (HCC) Chemotherapy-induced neutropenia (HCC) Exp ected: 10/26/2022, Expires: 12/26/2022[facility] Work Phone: Comment on above:Expected: 10/26/2022, Expires: 12/26/2022Start: 10-26-2022 End: 31-24-6354Lxctaoyywuzqj metabolic 2000 panel - Serum or PlasmaCOMP METABOLIC PANEL Lab Routine Cancer of the base of tongue (HCC) Chemotherapy- induced neutropenia (HCC) Expected: 10/26/2022, Expires: 12/26/2022[facility] Work Phone: Comment on above:Expected: 10/26/2022, Expires: 12/26/2022Start: 57-15-0137CWDROPP DIRECTIVE DISCUSSIONADVANCE DIRECTIVE DISCUSSIONUniversity Hospitals [facility] Medical Centertart: 14-24-9717FDHXDSUETC ASSESSMENTDEPRESSION ASSESSMENTUniversity Hospitals Portage Medical Centertart: 93-70-4284PEEUD-19 VACCINE (3 - Booster for Moderna series)COVID-19 VACCINE (3 - Booster for Moderna series)[facility] Start: 69-74-2107KSAQF-19 VACCINE (3 - Moderna risk series)COVID-19 VACCINE (3 - Moderna risk series)[facility]: 46-85-8086FSD Vaccine (1 - 1-dose 75+ series)RSV Vaccine (1 - 1-dose 75+ series)[facility]: 10-31-2008 Pneumococcal Vaccine: 65+ (1 of 1 - PCV)Pneumococcal Vaccine: 65+ (1 of 1 - PCV) [facility]: 90-81-0787BFBSPEICSWEF: 65+ (1 - PCV)PNEUMOCOCCAL: 65+ (1 - PCV)[facility]: 08-05-3870Gfkycyeny B Vaccines (1 of 3 - Risk 3- dose series)Hepatitis B Vaccines (1 of 3 - Risk 3-dose series)[facility] Start: 34-14-0338QYU Vaccine (1 - 1-dose 60+ series)RSV Vaccine (1 - 1-dose 60+ series)[facility]: 41-34-9846Jactlcxanoqy Vaccine: 50+ (1 of 1 - PCV) Pneumococcal Vaccine: 50+ (1 of 1 - PCV)[facility]: 10-31-1993 SHINGRIX VACCINE (1 of 2)SHINGRIX VACCINE (1 of 2)[facility]: 77-42-8742PZZAVQSH SCREENDIABETES SCREENUniversity Hospitals Portage Medical Centertart: 10-31-1962 Hepatitis A Vaccines (1 of 2 - Risk 2-dose series)Hepatitis A Vaccines (1 of 2 - Risk 2-dose series)[facility] HealthcareStart: 92-78-9330Miudejbckczm Vaccine: 65+ Years (1 of 2 - PCV)Pneumococcal Vaccine: 65+ Years (1 of 2 - PCV)[facility] CenterStart: 87-27-2886FTDUSFIN VACCINE (1 of 2)SHINGRIX VACCINE (1 of 2) [facility]: 50-18-6196Bewfm microalbumin profileCleveland Clinic Hillcrest Hospital Start: 44-28-9119XHMGAM PCP TEAM CHRONIC DISEASE VISITANNUAL PCP TEAM CHRONIC DISEASE VISITUniversity Hospitals Port[facility] Medical Centertart: 31-91-4260Tqlxoae ScreeningAnxiety Screening [facility]: 29-97-2357Aimojfzcfd ScreeningDepression Screening [facility]: 52-97-2586ICHIADEBN C SCREENINGHEPATITIS C SCREENING [facility]: 67-74-6866ICnL/Tdap/Td Vaccines (1 - Tdap)DTaP/Tdap/Td Vaccines (1 - Tdap)[facility] HealthcareStart: 27-88-4973Uatohbeqhfdn Vaccine: 65+ (1 - PCV)Pneumococcal Vaccine: 65+ (1 - PCV)[facility]: 10-31-1951 Pneumococcal Vaccine: 65+ (1 of 2 - PCV)Pneumococcal Vaccine: 65+ (1 of 2 - PCV) [facility]: 36-07-5761Wwewpjkmkqrz Vaccine: 65+ Years (1 of 2 - PCV) Pneumococcal Vaccine: 65+ Years (1 of 2 - PCV)[facility] HealthcareStart: 10-31-1949 PNEUMOCOCCAL: 65+ (1 - PCV)PNEUMOCOCCAL: 65+ (1 - PCV)[facility] End: 01-57-4298HYI W Auto Differential panel - BloodCBC + DIFF Lab Routine Cancer of base of tongue (HCC) Once per week for 10 Occurrences starting 03/2023 until 08/16/2023, 1 completedPremier Health Work Phone: Comment on above:Once per week for 10 Occurrences starting 08/16/2022 until 08/16/2023, 1 completedCBC W Auto Differential panel - BloodCBC + DIFF Lab Routine Cancer of base of tongue (HCC) 10/08/2022 11:35 AM [facility] Work Phone: End: 65-23-6768Zfidgtwnfxdxm metabolic 2000 panel - Serum or PlasmaCOMP METABOLIC PANEL Lab Routine Cancer of base of tongue (HCC) Once per week for 10 Occurrences starting 08/16/2022 until 08/16/2023, 1 completedPremier Health Work Phone: Comment on above:Once per week for 10 Occurrences starting 08/16/2022 until 08/16/2023, 1 completedCT SIM PLANNING RADIATION ONCOLOGYCT SIM PLANNING RADIATION ONCOLOGY Radiology Routine Tongue cancer (HCC) [facility] Work Phone: Comment on above:Ordered: 08/23/2022 End: 89-61-4358Nyx imaging ct attenuation skull base mid-thighNM PET/CT SKULL- THIGH INITIAL Radiology Routine Tongue cancer (HCC) Head and neck cancer (HCC) 1 Occurrences starting 08/14/2022 until 4[facility] Work Phone: Comment on above:1 Occurrences starting 08/14/2022 until 4Prostate specific Ag [Mass/volume] in Serum or PlasmaPSA Lab Routine Prostate cancer screening Ordered: 08/31/2024[facility] Work Phone: Comment on above:Ordered: [address] [place] [address] Immunizations Immunization DateImmunizationNotesCare ZaqtbdivUosxqwld05-27-5976Qdjhowvgd, High-dose Seasonal, Quadrivalent, Preservative FreeMannie Rodriguez POSITION CLASSIFICATION MANAGER Work Phone: [facility] CenterVjdirrvsuc37-25-7796kdwvuehvv virus vaccine, unspecified formulationMason Johnson MD Work Phone: [facility] CenterSkteotpiyf76-79-6194Xpuogimwr, Seasonal, Quadrivalent, AdjuvantedDdaisy Johnson MD Work Phone: [facility] CenterFpakayxmcm16-63-2678kqxstixef nasal, unspecified formulationC[facility] Clinic [facility]10-27-2022influenza virus vaccine, unspecified formulationMichael NILL GeneRedlands Community HospitalJjjfogtp15-63-8453Xahvwqclp, Seasonal, Quadrivalent, AdjuvantedDdaisy Johnson MD Work Phone: [facility] CenterYbzilpfgtt91-01-6385rrqlczqnu, seasonal, injectableMason Johnson MD Work Phone: [facility] CenterLliijaftyf95-08-4403Dcznrqlpy, Seasonal, Quadrivalent, AdjuvantedDdaisy Johnson MD Work Phone: [facility] CenterBgquqxvwrl40-77-9375YWOB-ZcJ-5 (COVID-19) mRNA- 1273 vaccineMichael NILL [facility] CenterXepwcyqj20-13-3170MJUW-EfR-5 (COVID-19) mRNA-1273 vaccineMichael NILL General Surgery Cikvohnl50-22-3728gzjggfncd, high dose seasonal, preservative-Genet Johnson MD Work Phone: [facility] CenterWowdjcvbnc11-55-7707Byadjuxxs, injectable, Madin [place] Canine Kidney, preservative free, quadrivalentMason Johnson MD Work Phone: [facility] CenterNrbkndalwx78-20-5735phpmlzzyx, seasonal, injectable, preservative Genet Johnson MD Work Phone: [facility] CenterYnksgzbujc29-08-6633xxamh wjdbfhmmc-A7G6-31, preservative-free, injectableMason Johnson MD Work Phone: [facility] Payers DatePayer CategoryPayerPolicy [id number]-pay2025Medicare (Managed Care)[id number]/MEDICAL GENERIC MEDICAL GENERIC [id number] 2022- Present [phone] [place] [address] Dr Acuna [address] [place] [address] [id number] Health [id number] 2013Medicare [id number] [id number] 1960 Private Health [id number] 2.16.840.1.746072.3.57[id number] 2.16.840.1.995439.3.57[id number] 2.16840.1.653185.3.57[id number] 2.16840.1.961663.3.57[id number] 2.16840.1.090204.3.57[id number] 2.16840.1.503306.3.57[id number] 2.16840.1.476169.3.57[id number] 2.0.1.267626.3.57[id number] 2.0.1.373110.3.57[id number] 2.840.1.841453.3.57[id number] 2.840.1.052563.3.57[id number] 2..1.283417.3.57[id number] 2.840.1.694498.3.579.2.236337-82-2966Kjmxfpv68281828 2.16840.1.953036.3.579.2.518381-84-6894Peutzbh23354363 2.16840.1.945067.3.579.2.230010-95-2353Qsrzegq36925191 2.16840.1.840820.3.579.2.403901-11-8098Jhlwzdl13668455 2.16.840.1.312970.3.579.2.335888-17-5685Sgqhlvb08884948 2.16.840.1.687033.3.579.2.122202-97-1407Jlyhawj29537570 2.16.840.1.293516.3.579.2.104881-66-0093Cmifmmt5681789 2.16840.1.704001.3.579.2.339532-85-7143Eiwipwm7930236 2.16.840.1.203859.3.579.2.576032-58-1709Vpbcbmp1730776 2.16840.1.469489.3.579.2.466289-43-3996Qpagbtm9569143 2.840.1.294578.3.579.2.833777-73-6266Bhumhgk8354731 2.840.1.950607.3.579.2.194569-03-0676Aladnoy1034389 2.840.1.500950.3.579.2.775313-85-7894Bixjhmg7538887 2.840.1.014272.3.579.2.253112-30-4512Kpvrzhb6487257 2.840.1.284342.3.579.2.036696-63-7641Weyofmh5532774 [id number] Social History DateTypeDetailFacilityStart: 06-13-2022 End: 89-53-9220Akrwltk smoking statusNever smoked tobacco (finding)[facility] ColumbusueStart: 48-10-3047Rxrfmvk smoking statusNeverGeneral Surgery [facility] Centertart: 02-06-2023 End: 76-62-2620Wkf [facility]igned At [facility]: 04-30-2013 End: 20-71-6800Moouvqo use and exposureSmokeless tobacco non-userUniversity Hospitals Portage Medical Centertart: 08-14-2022 End: 16-76-9459Hvynkpk intakeCurrent drinker of alcohol (finding)[facility] Centertart: 83-07-3035Rnebibc Commentdaily 3 beersCleveland Red Lake Indian Health Services Hospitaltart: 04-04-4497Ewm Assigned At [facility] ClevelandNot on fileUniversity Hospitals Portage Medical Centertart: 02-06-2023 End: 42-75-6617Jqkqpfw of Social functionUniversity Hospitals Portage Medical Centertart: 95-39-7253Vvw Assigned At [facility] HospitalWithin the last year, have you been afraid [...] like food, housing, medical care, and heatingVery hardNOMS HealthcareDo you feel stress - tense, restless, nervous, or anxious, or unable to sleep at night because yourmind is troubled all the time - these days [OSQ] Not at allNOMS Healthcare(I/We) worried whether (my/our) food would run out before (I/we) got money to buy more.Never trueNOOK HealthcareStart: 01-20-2023 Alcohol Commentcaffeine intake: 1-2 cups per dayNOOK HealthcareTobacco smoking status NHISUnknown if ever smokedRegional Medical Center Work Phone: SexMale (finding)[facility] NEGATED: Highlighted rowStart: NINFHistory of tobacco usePassive smokerCleveland Clinic [facility] Functional Status XhciJxkvckvrkcDxkenlSmvvuqas07-91-6038Nvhaidm Health Questionnaire 2 item (PHQ- 2) [Reported][facility] Mxhzbptkwl96-61-3121Gkkhapn Health Questionnaire 2 item (PHQ- 2) [Reported][facility] CenterNdetycsxjz60-53-6326Gdvpdvt Health Questionnaire 2 item (PHQ- 2) [Reported][facility] CenterMwakibxoid27-28-5396Ddxsyih Health Questionnaire 2 item (PHQ- 2) [Reported][facility] CenterBozlpiwbsi53-25-0910Dhjnboubjy StatusN/AGeneral Surgery Tngkgbgt10-34-6149Eea you deaf, or do you have serious difficulty hearingNo 04/29/2014 11:20 AM Jasmyn Han [facility] HospitalBwtbfo83-05-9177Yjd you blind, or do you have serious difficulty seeing, even when wearing glassesNo 04/29/2014 11:20 AM [facility]10-23-2014Do you have serious difficulty walking or climbing stairsNo 04/29/2014 11:20 AM Jasmyn Han No [facility] HospitalWmyjoa12-22-4297Ga you have difficulty dressing or bathingNo 04/29/2014 11:20 AM Jasmyn Han [facility] HospitalLnkeik97-55-7766Brrnsel of a physical, mental, or emotional condition, do you have difficulty doing errands alone such as visiting a physician's office or shoppingNo 04/29/2014 11:20 AM [facility] Mental Status AlvsOuhxiwltszPzmkknVoponkcq84-74-9412Thzyghe of a physical, mental, or emotional condition, do you have serious difficulty concentrating, remembering, or making decisionsNo 04/29/2014 11:20 AM Jasmyn [facility] Clinical Notes 04-28-2015 to 04-30-2025 Note Date & EtmhIoutXngbhkon87-54-7383 History of Present illness Narrative* Mason Johnson MD - 04/30/2025 11:45 AM [...] with colostomy COLONOSCOPY LARYNGOSCOPY 07/31/2022 with biopsy, Timias Visit Vitals BP 136/76 Pulse 70 Ht 5' 7 Wt 197 lb SpO2 97% BMI 30.85 kg/m Smoking Status Never BSA [...] 0.70 - 1.30 mg/dL Final [facility] EGFR-AF THAI 04/29/2025 >60 >=60 mL/min/1.73m 2 Final [facility] EGFR-NON AF THAI 04/29/2025 59 (L) >=60 mL/min/1.73m 2 Final [...] INDICATED 04/29/2025 NO Final URINE CULTURE - [facility] 04/29/2025 Preliminary Value: Urine Culture - [facility] PEND Pending - Specimen sent to [facility]^Pending - Specimen sent to [facility] SEGMENTED NEUTROPHILS % MANUAL 04/29/2025 83.0 (H) [...] factors. LDL-C is now calculated using the Monroe-Del Toro calculation, which is a validated novel method providing better accuracy than the Friedewald equation in the estimation of LDL-C. Monroe SS et al. TITI. 2013;310(19): 5619-3143 (http://education.[employer]/faq/SLE151) CHOL/HDLC RATIO 03/26/2025 2.8 <5.0 (calc) Final [...] long-term current use of insulin (HCC) - FSBS log shows good control, most recent A1C is at or near goal. Continue current treatment plan as previously outlined without changes. Coronary artery disease involving [place] coronary artery of [place] heart without angina pectoris - Asymptomatic but he is sedentary due to his hip. I do not have his Cardiac Cath report, it was done 10 years ago in [place]. He has not seen a Cyber Systems Operations Specialist or had any cardiac evaluation in 10 [...] 2 weeks (on 05/14/2025). documented in this encounterSaint Joseph Health CenterMvttafpfil16-97-0963 NoteHNO ID: [id number] Author: JONATHAN PARTIDA RN Service: ? Author Type: Registered Nurse Type: Progress Notes Filed: 04/29/2025 10:09 Note Text: Radiology Service Progress Note DATE [...] Value Ref Range Status 04/29/2025 70 >=60 mL/min/1.73m? Final Comment: Estimated Glomerular Filtration [...] IV SITE APPEARANCE: Clean,Dry and Intact SIGNATURE: Jonathan Partida RN PATIENT NAME: Manish Root DATE: April 29, 2025 TIME: 10:09 [facility]10-23-2025 NoteHNO ID: [id number] Author: RAFAEL ZURITA RT(R) Service: ? Author Type: Technologist Type: Progress Notes Filed: 04/29/2025 10:02 Note Text: Radiology Service Progress Note PATIENT [...] PATIENT PRESENTS WITH AN IMPLANTABLE OR ATTACHED PLASTIC SHEETS FINISHING SUPERVISOR: No RADIOLOGY DEPARTMENT: CT; Exam(s) Completed: Chest and Neck . Anesthesia: No PERIPHERAL IV DATA: Site assessment: Clean,Dry and Intact, Site disposition Discontinued SIGNED BY: RT Perlita(R) April 29, 2025 10:02 [facility]10-22-2025 History of Present illness Narrative* Jr. Mechelle Boyer, - 04/28/2025 9:00 AM EDT Images from [...] in this patient''s case because of the xruh-ta-jnmf articulation of the patient's hip. Questions answered in laymen terms at the bedside. The diagnosis, home exercise plan and any ongoing restrictions/ recommendations reviewed. If unable to be reached in office, I recommend evaluation at nearest Emergency Room if any symptoms worsened or new symptoms develop for requiring urgent evaluation. [1] Allergies Allergen Reactions Statins GI intolerance documented in this encounterSaint Joseph Health CenterVkfqfulzoa72-01-0239 History of Present illness Narrative* Serene Morales [...] GERD (gastroesophageal reflux disease) 01/15/2023 History of ND (myocardial infarction) 01/15/2023 HTN (hypertension) 01/15/2023 OJEDA [...] file prior to visit. documented in this [facility]10-13-2025 Telephone encounter Note* Telephone Encounter - Olive Pugher - 04/19/2025 9:42 AM EDT SHAMIKA 04/14/25 L Hip OA Has thought about it and would like to move forward with DOM Next available spot Please call patient [facility] CenterVusygcagjo64-03-6612 Miscellaneous Notes* Telephone Encounter - Oliveitalia Brown - 04/19/2025 9:42 AM EDT SHAMIKA 04/14/25 L Hip OA Has thought about it and would like to move forward with DOM Next available spot Please call patient documented in this [facility]10-08-2025 History of Present illness Narrative* Jr. Mechelle [...] colectomy with colostomy COLONOSCOPY LARYNGOSCOPY 07/31/2022 with Lana hou SOCIAL HISTORY: Social History Occupational History Not [...] for requiring urgent evaluation. documented in this encounterSaint Joseph Health CenterExqpkdpvan60-99-5292 History of Present illness Narrative* Mason Johnson [...] 07/31/2022 with biopsy, Lana Visit Vitals BP 132/74 Pulse 64 Ht [...] 07/26/2025) for Routine F/U. documented in this encounterSaint Joseph Health CenterYapiqqgbgx95-63-3347 History of Present illness Narrative* Serene Morales [...] GERD (gastroesophageal reflux disease) 01/15/2023 History of ND (myocardial infarction) 01/15/2023 HTN (hypertension) 01/15/2023 OJEDA [...] Quarterly appts till 07/2026 documented in this encounterSaint Joseph Health CenterSopenpesnx69-53-2331 History of Present illness Narrative* Mason Johnson [...] LARYNGOSCOPY 07/31/2022 with biopsy, Lana Visit Vitals Ht 5' 7 BMI 31.48 [...] No follow-ups on file. documented in this encounterSaint Joseph Health CenterVmwdeknrof61-30-5193 History of Present illness Narrative* Mason Johnson [...] indicated. For additional information, please refer to http://education.[employer]/faq/IQO140 (This link is being provided for informational/ [...] polar distribution in the cytoplasm (e.g., anti-giantin, [id number]). Pattern is rare in Sjogren's syndrome, systemic lupus erythematosus (SLE), rheumatoid arthritis, mixed connective disease, granulomatosis with polyangiitis (GPA), idiopathic cerebellar ataxia, paraneoplastic cerebellar degeneration, and viral infections. AC-22: Polar/Golgi-like International Consensus on RAFAEL Patterns (https://doi.org/10.1515/xntl-0897-1555) Clinisync Result Encounter on 12/02/2024 Component Date [...] 01/04/2025) for Test/Lab Review. documented in this encounterSaint Joseph Health CenterApgbznaezb43-95-7911 History of Present illness Narrative* Mason Johnson MD - 12/09/2024 10:15 AM EDT HPI Follow-up Additional comments: Knee and hip pain--left hip pt states he is not sure its OA as discussed wouldlike to discuss Last edited by Niki Alvarez [...] History: Diagnosis Date CAD (coronary artery disease) ([facility]/HCC) Chemotherapy-induced neutropenia ([facility]/HCC) 10/19/2022 Colon cancer ([facility]/HCC) Diabetes ([facility]) Diastasis recti 01/15/2023 Disorder of prostate 01/15/2023 GERD (gastroesophageal reflux disease) Glucose intolerance 01/15/2023 HCVD (hypertensive cardiovascular disease) ([facility]/HCC) History of colonic polyps 01/15/2023 History of malignant neoplasm of colon 01/15/2023 Hx of myocardial infarction ([facility]/HCC) Hyperlipidemia ([facility]/HCC) Hypertension ([facility]/HCC) Inguinal hernia, right Overweight 12/15/2022 Raynaud's disease Sinusitis Throat cancer ([facility]/HCC) Thyromegaly ([facility]/HCC) Type 2 diabetes mellitus Vitamin D deficiency [...] disease, without long-term current use of insulin ([facility]) - FSBS log shows good control, most recent A1C is at or near goal. Continue current treatment plan as previously outlined without changes. Follow up in about 2 weeks (around 12/23/2024) for As Previously Scheduled, Test/Lab Review. documented in this encounterSaint Joseph Health CenterCirryyrvdz16-55-0425 NoteHNO ID: [id number] Author: Yordan FELIZ MD Service: ? Author [...] Lymph 1.00 - 4.00 k/uL 0.48 (L) Madison% % 10.4 Abs [place] <0.87 k/uL 0.32 Eosin% % 1.6 Abs [...] flush line and de-a (more content not included)...[facility]04-30-2025 History of Present illness Narrative* Yordan Feliz [...] Lymph 1.00 - 4.00 k/uL 0.48 (L) [place]% % 10.4 Abs [place] <0.87 k/uL 0.32 Eosin% % 1.6 Abs [...] Feliz MD cc: Dr. Shaikh Vidal Estrada [address] [place] [address] documented in this encounterCleveland Clinic Hillcrest Hospital04-30-2025 History of Present illness Narrative* John England MD - 11/04/2024 11:20 AM EDT Images from the original note were not included. NAME: Dk Manish [facility] NO.: [id number] DATE OF SERVICE: November 04, 2024 (Jacquelyn) [...] Ca Stage 3 - 2/5 LN + Dewitt regimen on protocol Updated Visit, November 04, [...] as his is better. He's originally from [place]. Updated Visit, May 06, 2024: Manish returns [...] which included preparing to see the patient, chgt-ys-alpg patient care, completing clinical documentation, performing a medically appropriate examination, counseling and educating the patient/family/caregiver, ordering medications, tests, or p rocedures, independently interpreting results (not separately reported), communicating results to the patient/family/caregiver, and care coordination (not separately reported). John England MD, CPE Hematology and Oncology Services Provided at: [place], [place] CC: Dr. Yordan Morales documented in this encounterCleveland Clinic Hillcrest Hospital04-30-2025 NoteHNO ID: [id number] Author: JOHN ENGLAND MD Service: ? Author Type: Physician Type: Progress Notes Filed: 11/04/2024 19:00 Note Text: NAME: Manish Root [facility] NO.: [id number] DATE OF SERVICE: November 04, 2024 ([facility]) Some elements in this clinic [...] Ca Stage 3 - 2/5 LN + Dewitt regimen on protocol Updated Visit, November 04, [...] as his is better. He's originally from [place]. Updated Visit, May 06, 2024: Manish returns with his Jahaira (she has a pinched nerve that has locked up her shoulder) His scans are negative. He's doing very well. Updated Visit, October 23, 2023: Manish returns today with Jahaira. We discussed he recent CT scans - both appear stable. (more content not included)...[facility]04-30-2025 Instructions* Patient Instructions* John England MD - 11/04/2024 11:[address] Neck and Chest in 6 months Labs same day RTC 1 week after to review documented in this encounterCleveland Clinic Hillcrest Hospital04-23-2025 NoteHNO ID: [id number] Author: RAFAEL ZURITA RT(R) Service: ? Author [...] PATIENT PRESENTS WITH AN IMPLANTABLE OR ATTACHED PLASTIC SHEETS FINISHING SUPERVISOR: No RADIOLOGY DEPARTMENT: CT; Exam(s) Completed: Chest and Neck PERIPHERAL IV DATA: Site assessment: Clean,Dry and Intact, Site disposition Discontinued SIGNED BY: RT Perlita(R) October 28, 2024 9:41 [facility]04-23-2025 NoteHNO ID: [id number] Author: GISELA VILLAVICENCIO RN Service: ? Author [...] Root DATE: October 28, 2024 TIME: 10:49 [facility]04-21-2025 History of Present illness Narrative* Mason Johnson [...] History: Diagnosis Date CAD (coronary artery disease) ([facility]/HCC) Chemotherapy-induced neutropenia ([facility]/HCC) 10/19/2022 Colon cancer ([facility]/HCC) Diabetes ([facility]/HCC) Diastasis recti 01/15/2023 Disorder of prostate 01/15/2023 GERD (gastroesophageal reflux disease) Glucose intolerance 01/15/2023 HCVD (hypertensive cardiovascular disease) ([facility]/HCC) History of colonic polyps 01/15/2023 History of malignant neoplasm of colon 01/15/2023 Hx of myocardial infarction (CMS/HCC) Hyperlipidemia (CMS/HCC) Hypertension ([facility]/HCC) Inguinal hernia, right Overweight 12/15/2022 Raynaud's disease Sinusitis Throat cancer ([facility]/HCC) Thyromegaly ([facility]/HCC) Type 2 diabetes mellitus Vitamin D deficiency Past Surgical History: Procedure Laterality Date CARDIAC CATHETERIZATION 2001 with stent placement CATARACT EXTRACTION COLECTOMY 02/2000 sigmoid colectomy with colostomy COLONOSCOPY LARYNGOSCOPY 07/31/2022 with biopsy, [facility] Visit Vitals BP 130/74 Pulse 52 Ht [...] Routine F/U, DM- A1C. documented in this encounterSaint Joseph Health CenterVbxvsjizkt81-68-4389 History of Present illness Narrative* Serene Morales [...] lymph nodes (CMS/HCC) 12/15/2022 Arteriosclerotic cardiovascular disease ([facility]/HCC) 01/15/2023 Colon cancer ([facility]/HCC) 11/19/2012 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, without long-term current use of insulin (CMS/HCC) 01/15/2023 GERD (gastroesophageal reflux disease) 01/15/2023 History of ND (myocardial infarction) ([facility]/HCC) 01/15/2023 HTN (hypertension) (CMS/HCC) 01/15/2023 OJEDA (nonalcoholic [...] Quarterly appts till 07/2026 documented in this encounterSaint Joseph Health CenterBnorpdrxov78-52-8976 History of Present illness Narrative* Mason oJhnson MD - 10/12/2024 3:45 PM EDT Images [...] History: Diagnosis Date CAD (coronary artery disease) ([facility]/HCC) Chemotherapy-induced neutropenia ([facility]/HCC) 10/19/2022 Colon cancer ([facility]/HCC) Diabetes ([facility]/HCC) Diastasis recti 01/15/2023 Disorder of prostate 01/15/2023 GERD (gastroesophageal reflux disease) Glucose intolerance 01/15/2023 HCVD (hypertensive cardiovascular disease) ([facility]/HCC) History of colonic polyps 01/15/2023 History of malignant neoplasm of colon 01/15/2023 Hx of myocardial infarction ([facility]/HCC) Hyperlipidemia ([facility]/HCC) Hypertension ([facility]/HCC) Inguinal hernia, right Overweight 12/15/2022 Raynaud's disease Sinusitis Throat cancer ([facility]/HCC) Thyromegaly ([facility]/HCC) Type 2 diabetes mellitus Vitamin D deficiency [...] med changes, Test/Lab Review. documented in this encounterSaint Joseph Health CenterJkgutuypfh21-66-1276 History of Present illness Narrative* Barry Ricci Stevens, TRAFFIC OPERATOR-CONICAL MIXER - 09/17/2024 10:35 AM EDT Lesions: Location: [...] limited to risks of scarring, darker or instrumentation specialist pigmentary changes, recurrence, incomplete removal and infection. [...] 3. Seborrheic keratosis, inflamed Mid Parietal Scalp [place] and brown stuck on verrucous scaly papule [...] limited to risks of scarring, darker or instrumentation specialist pigmentary changes, recurrence, incomplete removal and infection. [...] Next Visit: as scheduled documented in this encounterSaint Joseph Health CenterOclohywhcs15-46-9584 History of Present illness Narrative* Mason Johnson [...] Do you have a medical power of workers compensation attorney?: No Objective : BP 136/74 Pulse [...] a living will and durable power of workers compensation attorney for healthcare. We discussed telling muro [...] Services Required Referred to Provider: Barry Stevens APRN-CONICAL MIXER Requested Specialty: Dermatology Number of Visits Requested: 1 POCT Glycated hemoglobin, total Electronically signed by Mason Johnson MD on August 31, 2024 documented in this encounterSaint Joseph Health CenterUcuedxspde65-96-2333 History of Present illness Narrative* Serene Morales [...] DM II (diabetes mellitus, type II), controlled ([facility]) 01/15/2023 GERD (gastroesophageal reflux disease) 01/15/2023 History of ND (myocardial infarction) ([facility]) 01/15/2023 HTN (hypertension) (CMS/[facility]) 01/15/2023 OJEDA (nonalcoholic steatohepatitis) 01/15/2023 Stage 2 chronic kidney disease 2022 Facial lesion 01/21/2023 CAD (coronary artery disease) ([facility]) 06/10/2023 Chemotherapy-induced neutropenia ([facility]) 10/19/2022 Type 2 diabetes mellitus without complications ([facility]) 06/10/2023 Diastasis recti 01/15/2023 Encounter for Medicare annual wellness exam 06/10/2023 Neck muscle spasm 11/20/2023 Throat cancer ([facility]) 12/04/2023 Hyperlipidemia ([facility]) 12/16/2023 Resolved Ambulatory Problems Diagnosis Date Noted Overweight 12/15/2022 Acute pain of right shoulder 12/15/2022 Basal cell carcinoma (BCC) of face 12/15/2022 Chemotherapy-induced neutropenia ([facility]) 10/19/2022 Diastasis recti 01/15/2023 Disorder of prostate 01/15/2023 Glucose intolerance 01/15/2023 History of colonic polyps 01/15/2023 History of malignant neoplasm of colon 01/15/2023 Hypercholesterolemia ([facility]/HCC) 01/15/2023 Raynaud's syndrome 01/15/2023 Vitamin D deficiency 01/15/2023 Past Medical History: Diagnosis Date Diabetes ([facility]) HCVD (hypertensive cardiovascular disease) ([facility]) Hx of myocardial infarction ([facility]/HCC) Hypertension ([facility]) Inguinal hernia, right Raynaud's disease Sinusitis Thyromegaly ([facility]) Type 2 diabetes mellitus ([facility]/HCC) Past Surgical History: Procedure Laterality Date CARDIAC [...] today. Start quarterly appts documented in this [facility]01-08-2025 History of Present illness Narrative* Mannie Rodriguez NP - 07/15/2024 3:45 PM EST documented in this [facility]12-10-2024 History of Present illness Narrative* Serene Morales [...] GERD (gastroesophageal reflux disease) 01/15/2023 History of ND (myocardial infarction) ([facility]/HCC) 01/15/2023 HTN (hypertension) (CMS/HCC) 01/15/2023 OJEDA (nonalcoholic steatohepatitis) 01/15/2023 Stage 2 chronic kidney disease 2022 Facial lesion 01/21/2023 CAD (coronary artery disease) ([facility]) 06/10/2023 Chemotherapy-induced neutropenia ([facility]) 10/19/2022 Type 2 diabetes mellitus without complications ([facility]) 06/10/2023 Diastasis recti 01/15/2023 Encounter for Medicare annual wellness exam 06/10/2023 Neck muscle spasm 11/20/2023 Throat cancer ([facility]) 12/04/2023 Hyperlipidemia ([facility]) 12/16/2023 Resolved Ambulatory Problems Diagnosis Date Noted Overweight 12/15/2022 Acute pain of right shoulder 12/15/2022 Basal cell carcinoma (BCC) of face 12/15/2022 Chemotherapy-induced neutropenia ([facility]) 10/19/2022 Diastasis recti 01/15/2023 Disorder of prostate 01/15/2023 Glucose intolerance 01/15/2023 History of colonic polyps 01/15/2023 History of malignant neoplasm of colon 01/15/2023 Hypercholesterolemia ([facility]) 01/15/2023 Raynaud's syndrome 01/15/2023 Vitamin D deficiency 01/15/2023 Past Medical History: Diagnosis Date Diabetes (CMS/[facility]) HCVD (hypertensive cardiovascular disease) ([facility]) Hx of myocardial infarction ([facility]) Hypertension ([facility]) Inguinal hernia, right Raynaud's disease Sinusitis Thyromegaly (CMS/[facility]) Type 2 diabetes mellitus ([facility]) Past Surgical History: Procedure Laterality Date CARDIAC [...] quarterly appts next visit documented in this encounterSaint Joseph Health CenterVloddenkxu51-52-5448 History of Present illness Narrative* Barry Stevens, TRAFFIC OPERATOR-CONICAL MIXER - 05/26/2024 10:20 AM EST Lesions: Location: [...] Actinic keratosis (6) Left Eyebrow, Left Superior [place], Left Zygomatic Area, Right Forehead, Right Scaphoid Fossa, RightSuperior Magnolia Erythematous scaly papules Patient was counseled regarding [...] limited to risks of scarring, darker or instrumentation specialist pigmentary changes, recurrence, incomplete removal and infection. [...] skin lesion - Left Eyebrow, Left Superior Magnolia, Left Zygomatic Area, Right Forehead, Right Scaphoid Fossa, Right Superior Magnolia Next Visit: 1 year, skin check documented in this encounterSaint Joseph Health [id number] History of Present illness Narrative* Serene Morales [...] Date Noted Cancer of base of tongue ([facility]/HCC) 12/15/2022 Metastatic cancer to cervical lymph nodes ([facility]) 12/15/2022 Arteriosclerotic cardiovascular disease ([facility]) 01/15/2023 Colon cancer ([facility]) 11/19/2012 DM II (diabetes mellitus, type II), controlled ([facility]) 01/15/2023 GERD (gastroesophageal reflux disease) 01/15/2023 History of ND (myocardial infarction) ([facility]) 01/15/2023 HTN (hypertension) (CMS/HCC) 01/15/2023 OJEDA (nonalcoholic [...] today. Monthly till July documented in this encounterSaint Joseph Health [id number] Instructions* Patient Instructions* John England MD - 05/06/2024 3:[address] Neck and Chest in 6 months Labs same day RTC 1 week after to review documented in this encounterCleveland Clinic [facility]10-30-2024 NoteHNO ID: [id number] Author: JOHN ENGLAND MD Service: ? Author Type: Physician Type: Progress Notes Filed: 05/09/2024 10:42 Note Text: NAME: Manish Root [facility] NO.: [id number] DATE OF SERVICE: May 06, 2024 (Jacquelyn) [...] Ca Stage 3 - 2/5 LN + Dewitt regimen on protocol Updated Visit, May 06, [...] showing a new consolidatio (more content not included)...[facility]10-30-2024 History of Present illness Narrative* John England MD - 05/06/2024 3:04 PM EDT Images from the original note were not included. NAME: Manish Root [facility] NO.: [id number] DATE OF SERVICE: May 06, 2024 (Jacquelyn) [...] Ca Stage 3 - 2/5 LN + Dewitt regimen on protocol Updated Visit, May 06, [...] which included preparing to see the patient, yuyh-ak-pzuo patient care, completing clinical documentation, performing a medically appropriate examination, counseling and educating the patient/family/caregiver, ordering medications, tests, or p rocedures, independently interpreting results (not separately reported), communicating results to the patient/family/caregiver, and care coordination (not separately reported). John England MD, CPE Hematology and Oncology Services Provided at: [facility], [place], [place] CC: Dr. Yordan Morales documented in this encounterCleveland Clinic Hillcre[facility]10-30-2024 History of Present illness Narrative* Yordan Feliz [...] Lymph 1.00 - 4.00 k/uL 0.48 (L) Madison% % 10.4 Abs Madison <0.87 k/uL 0.32 Eosin% % 1.6 Abs [...] Feliz MD cc: Dr. Shaikh Vidal Estrada [address] [place] [address] documented in this encounterCleveland Clinic Hillcrest Hospital10-30-2024 NoteHNO ID: [id number] Author: Yordan FELIZ MD Service: ? Author [...] Lymph 1.00 - 4.00 k/uL 0.48 (L) Madison% % 10.4 Abs Madison <0.87 k/uL 0.32 Eosin% % 1.6 Abs [...] joint pain o (more content not included)... [facility]10-24-2024 History of Present illness Narrative* Mason Johnson MD - 04/30/2024 9:30 AM EDT Images from the original note were not included. HPI Establish Care Additional comments: Previous pcp dr vidal Loa[facility] oncology twice yearly [facility] Last edited by Niki Alvarez LPN on 04/30/2024 9:03 AM. Subjective Patient ID: Manish Root is a 78 y.o. male who presents for Establish Care (Previous pcp dr drake/[facility] oncology twice yearly [facility]), Diabetes, and Hypertension. Diabetes Mellitus Patient presents [...] 99 mg/dL Final Comment: The [place] Diabetes Association (ADA) provides guidance for cutoff [...] Medical Care in Diabetes 2016, [place] Diabetes Association. Diabetes Care. 2016.39(Suppl 1). [facility] [...] Filtration Rate (eGFR) is calculated using the 202 CKD-EPI creatinine equation. This equation utilizes serum creatinine, sex, and age as parameters. The creatinine assay has traceable calibration to isotope dilution- mass spectrometry. Refer to KDIGO guidelines for clinical interpretation. In patients with unstable renal function, e.g. those with acute kidney injury, the eGFRmay not accurately reflect actual GFR. Assessment/Plan Diagnoses and all orders for this visit: Primary hypertension ([facility]) - Controlled. Controlled type 2 diabetes mellitus without complication, without long-term current use of insulin ([facility]) - POCT Glycated hemoglobin, total today - 7.4%. No changes in therapy. Coronary artery disease involving [place] coronary artery of [place] heart without angina pectoris ([facility]) - The patient is experiencing no symptoms from this condition currently, it is considered medicallycontrolled and no change in current therapies are planned. Follow up in about 4 months (around 08/31/2024) for Routine F/U. documented in this encounterSaint Joseph Health [id number] History of Present illness Narrative* Rafael Zurita [...] PATIENT PRESENTS WITH AN IMPLANTABLE OR ATTACHED PLASTIC SHEETS FINISHING SUPERVISOR: No RADIOLOGY DEPARTMENT: CT; Exam(s) Completed: Chest and Neck PERIPHERAL IV DATA: Site assessment: Clean,Dry and Intact, Site disposition Discontinued SIGNED BY: RT Perlita(R) April 23, 2024 9:35 AM documented in this encounterCleveland Clinic Hillcrest [facility]10-15-2024 History of Present illness Narrative* Serene [...] GERD (gastroesophageal reflux disease) 01/15/2023 History of ND (myocardial infarction) (CMS/HCC) 01/15/2023 HTN (hypertension) (CMS/HCC) 01/15/2023 OJEDA (nonalcoholic steatohepatitis) 01/15/2023 Stage 2 chronic kidney disease 2022 Facial lesion 01/21/2023 CAD (coronary artery disease) (CMS/HCC) 06/10/2023 Chemotherapy-induced neutropenia (CMS/HCC) 10/19/2022 Type 2 diabetes mellitus without complications ([facility]/HCC) 06/10/2023 Diastasis recti 01/15/2023 Encounter for Medicare [...] Monthly appt till July documented in this encounterSaint Joseph Health CenterItfdoycpxp31-86-1110 History of Present illness Narrative* Serene Morales [...] Arteriosclerotic cardiovascular disease (CMS/HCC) 01/15/2023 Colon cancer ([facility]/HCC) 11/19/2012 DM II (diabetes mellitus, type II), controlled ([facility]/HCC) 01/15/2023 GERD (gastroesophageal reflux disease) 01/15/2023 History of ND (myocardial infarction) (CMS/HCC) 01/15/2023 HTN (hypertension) (CMS/HCC) 01/15/2023 OJEDA (nonalcoholic steatohepatitis) 01/15/2023 Stage 2 chronic kidney disease 2022 Facial lesion 01/21/2023 CAD (coronary artery disease) (CMS/HCC) 06/10/2023 Chemotherapy-induced neutropenia ([facility]) 10/19/2022 Type 2 diabetes mellitus without complications ([facility]) 06/10/2023 Diastasis recti 01/15/2023 Encounter for Medicare annual wellness exam 06/10/2023 Neck muscle spasm 11/20/2023 Throat cancer ([facility]) 12/04/2023 Hyperlipidemia ([facility]) 12/16/2023 Resolved Ambulatory Problems Diagnosis Date Noted Overweight 12/15/2022 Acute pain of right shoulder 12/15/2022 Basal cell carcinoma (BCC) of face 12/15/2022 Chemotherapy-induced neutropenia ([facility]/HCC) 10/19/2022 Diastasis recti 01/15/2023 Disorder of prostate 01/15/2023 Glucose intolerance 01/15/2023 History of colonic polyps 01/15/2023 History of malignant neoplasm of colon 01/15/2023 Hypercholesterolemia ([facility]/HCC) 01/15/2023 Raynaud's syndrome 01/15/2023 Vitamin D deficiency 01/15/2023 Past Medical History: Diagnosis Date Diabetes (CMS/HCC) HCVD (hypertensive cardiovascular disease) (CMS/HCC) Hx of myocardial infarction (CMS/HCC) Hypertension (CMS/HCC) Inguinal hernia, right Raynaud's disease Sinusitis Thyromegaly (CMS/[facility]) Type 2 diabetes mellitus ([facility]/HCC) Past Surgical History: Procedure Laterality Date CARDIAC [...] Monthly appts till July documented in this encounterSaint Joseph Health CenterPsbgdctxte93-06-0514 History of Present illness Narrative* Serene Morales [...] GERD (gastroesophageal reflux disease) 01/15/2023 History of ND (myocardial infarction) ([facility]/HCC) 01/15/2023 HTN (hypertension) (CMS/HCC) 01/15/2023 OJEDA (nonalcoholic [...] Monthly appts till July documented in this encounterSaint Joseph Health CenterJithhnyedw44-20-6639 History of Present illness Narrative* Yordan Feliz [...] Lymph 1.00 - 4.00 k/uL 0.48 (L) Madison% % 10.4 Abs [place] <0.87 k/uL 0.32 Eosin% % 1.6 Abs [...] Feliz MD cc: Dr. Shaikh Vidal Estrada [address] [place] [address] documented in this encounterCleveland Clinic Hillcre[facility]04-17-2024 Instructions* Patient Instructions* Kelli Merchant - 10/23/2023 11:[address] Neck and Chest in 6 months Labs same day, include anemia workup RTC 1 week after to review documented in this encounterCleveland Clinic Hillcrest Hospital04-17-2024 History of Present illness Narrative* John England MD - 10/23/2023 10:45 AM EDT Images from the original note were not included. NAME: Manish Root CLINIC NO.: [id number] DATE OF SERVICE: October 23, 2023 (amanri) Some elements in this clinic note that [...] Ca Stage 3 - 2/5 LN + Dewitt regimen on protocol Updated Visit, October 23, [...] which included preparing to see the patient, vuly-nw-prhf patient care, completing clinical documentation, performing a medically appropriate examination, counseling and educating the patient/family/caregiver, ordering medications, tests, or p rocedures, independently interpreting results (not separately reported), communicating results to the patient/family/caregiver, and care coordination (not separately reported). John England MD, CPE Hematology and Oncology Services Provided at: [place], [place] Scribe Attestation: This note was scribed [...] Dr. Yordan Morales documented in this encounterCleveland Clinic Hillcrest Hospital04-10-2024 Miscellaneous Notes* Telephone Encounter - Rafael Bob RN - 10/16/2023 1:14 PM EDT Pt had labs drawn today. Requests that the results be faxed to his PCP, Dr Drake. Results of CBC and CMP faxed to [phone]. Rafael Bob RN documented in this encounterCleveland Clinic Hillcrest Hospital04-10-2024 History of Present illness Narrative* Rafael Zurita [...] PATIENT PRESENTS WITH AN IMPLANTABLE OR ATTACHED PLASTIC SHEETS FINISHING SUPERVISOR: No RADIOLOGY DEPARTMENT: CT; Exam(s) Completed: Chest and Neck PERIPHERAL IV DATA: Site assessment: Clean,Dry and Intact, Site disposition Discontinued SIGNED BY: RT Perlita(R) October 16, 2023 11:34 AM documented in this encounterCleveland Clinic Hillcre[facility]12-06-2023 History of Present illness Narrative* Gisela Villavicencio [...] 12, 2023 8:18 AM documented in this encounterCleveland Clinic Hillcrest Hospital2023 History of Present illness Narrative* Yordan Feliz [...] Feliz MD cc: Dr. Shaikh Vidal Estrada [address] [place] [address] documented in this encounterCleveland Clinic Hillcrest Hospital09-13-2023 Instructions* Patient Instructions* John England MD - 03/20/2023 1:[address] Chest in 3 months Labs same day RTC 1 week after to review. documented in this encounterCleveland Clinic Hillcrest Hospital09-13-2023 History of Present illness Narrative* John England MD - 03/20/2023 1:15 PM EDT Images from the original note were not included. NAME: Manish Root [facility] NO.: [id number] DATE OF SERVICE: March 20, 2023 (Jacquelyn) [...] Ca Stage 3 - 2/5 LN + Dewitt regimen on protocol Updated Visit, March 20, [...] which included preparing to see the patient, pacq-bd-uwmu patient care, completing clinical documentation, performing a medically appropriate examination, counseling and educating the patient/family/caregiver, ordering medications, tests, or p rocedures, independently interpreting results (not separately reported), communicating results to the patient/family/caregiver, and care coordination (not separately reported). John England MD, CPE Hematology and Oncology Services Provided at: [place], [place] CC: Dr. Yordan Morales documented in this encounterCleveland Clinic Hill[facility]09-07-2023 History of Present illness Narrative* Jonathan Partida RN - 03/14/2023 1:45 PM EDT [...] IV SITE APPEARANCE: Clean,Dry and Intact SIGNATURE: Jonathan Partida RN PATIENT NAME: Manish Root DATE: March 14, 2023 TIME: 1:55 PM * Rafael Zurita, RT(R) - 03/14/2023 1:45 PM EDT Radiology [...] 14, 2023 1:52 PM documented in this encounterCleveland Clinic Hillcre[facility] Hospital08-02-2023 Instructions* Patient Instructions* John England MD - 02/06/2023 12:[address] Chest in 5 weeks RTC 6 weeks to review please documented in this encounterCleveland Clinic Hillcre[facility] Hospital08-02-2023 History of Present illness Narrative* Yordan Feliz [...] Feliz MD cc: Dr. Shaikh Vidal Estrada [address] [place] [address] documented in this encounterCleveland Clinic Hillcrest Hospital08-02-2023 History of Present illness Narrative* John England MD - 02/06/2023 11:39 AM EDT Images from the original note were not included. NAME: Dk Manish [facility] NO.: [id number] DATE OF SERVICE: February 06, 2023 (Jacquelyn) [...] Ca Stage 3 - 2/5 LN + Dewitt regimen on protocol Updated Visit, February 06, [...] which included preparing to see the patient, hkgs-nv-nizm patient care, completing clinical documentation, performing a medically appropriate examination, counseling and educating the patient/family/caregiver, ordering medications, tests, or p rocedures, communicating with other HCPs (not separately reported), independently interpreting results (not separately reported), communicating results to the patient/family/caregiver, and care coordination (not separately reported). John England MD, CPE Hematology and Oncology Services Provided at: [place], [place] CC: Dr. Yordan Morales documented in this encounterCleveland Clinic Hillcrest Hospital08-02-2023 Nurse Note* Lala Pitt MA - 02/06/2023 11:31 AM EDT Patient has easy bruising more so on arms, voice is always changing and has a lot of phlegm. Lala Hooper MA documented in this encounterCleveland Clinic Hill[facility] Hospital07-25-2023 History of Present illness Narrative* Jonathan Partida RN - 01/29/2023 10:45 AM EDT [...] IV SITE APPEARANCE: Clean,Dry and Intact SIGNATURE: Jonathan Partida RN PATIENT NAME: Manish Root DATE: [...] radiation safety can be found usingthis link: [email or web address] SIGNATURE: RT Aron(R) PATIENT NAME: Manish Root DATE: January 29, 2023 TIME: 11:48 AM PAGER/CONTACT #: documented in this encounterCleveland Clinic Hillcrest Hospital05-24-2023 History of Present illness Narrative* G Jeyson [...] by: Yordan Feliz MD cc: Mannie Nelson [facility] [place] [address] [address] Sur[address] [place] [address] [place] [address] documented in this encounterCleveland Clinic Hillcre[facility]05-03-2023 Instructions* Patient Instructions* John England MD - 11/07/2022 9:53 AM EDT Continue seeing Dr. Feliz and Dr. Morales. RTC in 12 -13 weeks (after PET is complete) PET per Dr. Feliz Coordinate return on same date as Dr. Feliz. Labs on day return documented in this encounterCleveland Clinic Hillcrest Hospital05-03-2023 History of Present illness Narrative* John England MD - 11/07/2022 9:21 AM EDT Images from the original note were not included. NAME: Manish Root [facility] NO.: [id number] DATE OF SERVICE: November 07, 2022 (Jacquelyn) [...] Ca Stage 3 - 2/5 LN + Dewitt regimen on protocol Updated Visit, November 07, [...] which included preparing to see the patient, lvnr-hn-eylv patient care, completing clinical documentation, performing a medically appropriate examination, counseling and educating the patient/family/caregiver, ordering medications, tests, or p rocedures, and independently interpreting results (not separately reported). John England MD, CPE Hematology and Oncology Services Provided at: [place], [place] CC: Dr. 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 NAME: RootManish [facility] NO.: [id number] DATE OF SERVICE: October 31, 2022 (Surinder) [...] Ca Stage 3 - 2/5 LN + Dewitt regimen on protocol Updated Visit, October 31, [...] No family history on file. Natalie Cadena APRN.[facility] Hematology and Oncology Services Provided at: [facility], [place], [place] CC: Dr. Yordan Morales I spent a total of 30 minutes on the date of the service which included preparing to see the patient, cewy-fw-tmfl patient care, completing clinical documentation, obtaining and/or reviewing separately obtained history, performing a medically appropriate examination, counseling and educating the pat ient/family/caregiver, ordering medications, tests, or procedures, independently interpreting results (not separately reported), and communicating results to the patient/family/caregiver. documented in this encounterCleveland Clinic Hill[facility]04-26-2023 History of Present illness Narrative* G Jeyson Feliz MD - 10/31/2022 9:32 AM EDT [...] Yordan Feliz MD cc: Mannie Nelson [facility] [place] [address] Natalie Cadena [address] [place] [address] [place] [address] documented in this encounterCleveland Clinic Hill[facility]04-20-2023 History of Present illness Narrative* Natalie Cadena APRN.[employer]ICAL [employer]ER - 10/25/2022 10:01 AM EDT Images from the original note were not included. NAME: Manish Root [facility] NO.: [id number] DATE OF SERVICE: October 25, 2022 (Surinder) [...] Ca Stage 3 - 2/5 LN + Dewitt regimen on protocol Updated Visit, October 25, [...] reviewed. No pertinent family history. Natalie Cadena APRN.[employer] Hematology and Oncology Services Provided at: [place], [place] CC: Dr. Yordan Morales I spent a total of 30 minutes on the date of the service which included preparing to see the patient, uhzu-vf-ztyr patient care, completing clinical documentation, obtaining and/or reviewing separately obtained history, performing a medically appropriate examination, counseling and educating the pat ient/family/caregiver, ordering medications, tests, or procedures, independently interpreting results (not separately reported), and communicating results to the patient/family/caregiver. documented in this encounterCleveland Clinic Hill[facility]04-17-2023 History of Present illness Narrative* Yordan Feliz MD - 10/22/2022 12:00 AM EDT [facility] Radiation Oncology Department RADIATION ONCOLOGY [...] Staff Physician Jeyson Feliz M.D. / KG :18 PM Electronically Signed cc: Dr. Jacquelyn Morales documented in this encounterCleveland Clinic Hillcrest Hospital04-14-2023 History of Past illness Narrative* ProblemNoted DateDiagnosed DateResolved DateChemotherapy-induced [id number] malignant neoplasm of colon documented as of this encounter (statuses as of 10/24/2023) [facility]04-14-[facility]23 History of Present illness Narrative* Dee [...] Gil MS, RDN, LD documented in this encounterCleveland Clinic Hillcrest Hospital04-14-2023 Instructions* Patient Instructions* John England MD - 10/19/2022 10:25 AM EDT Ciproflox prophylaxis. Neupogen 480 mcg x 1 today Needs to hydrate. Labs next Saturday CBC, CMP, possible hydration Stay for results - see Natalie documented in this encounterCleveland Clinic Hillcre[facility]04-14-2023 History of Present illness Narrative* John England MD - 10/19/2022 10:05 AM EDT Images from the original note were not included. NAME: Manish Root [facility] NO.: [id number] DATE OF SERVICE: October 19, 2022 (Jacquelyn) [...] Ca Stage 3 - 2/5 LN + Dewitt regimen on protocol Updated Visit, October 19, [...] which included preparing to see the patient, wbzr-bv-sjks patient care, completing clinical documentation, obtaining and/or reviewing separately obtained history, counseling and educating the patient/family/caregiver, ordering medications, cliff ts, or procedures, and independently interpreting results (not separately reported). John England MD, CPE Hematology and Oncology Services Provided at: [place], [place] CC: Dr. Yordan Morales documented in this encounterCleveland Clinic [facility]04-10-2023 History of Present illness Narrative* Yordan [...] discussed. Yordan Feliz MD documented in this encounterCleveland Clinic Hillcre[facility]04-04-2023 Miscellaneous Notes* Telephone Encounter - Diana [...] recommendations? Diana García LPN documented in this encounterCleveland Clinic Hillcre[facility]04-03-2023 History of Present illness Narrative* Yordan [...] outlined. Yordan Feliz MD documented in this encounterCleveland Clinic Hillcrest Hospital03-31-2023 History of Present illness Narrative* Dee Gil RD - 10/05/2022 10:45 AM EDT Oncology Nutrition Therapy Progress Note Attemped to see patient, however patient left after radiation treatment and did not stay for appointment with dietitian. Signed by: Dee Gil MS, RDN, LD documented in this encounterCleveland Clinic Hillcrest Hospital03-27-2023 History of Present illness Narrative* Natalie Cadena APRN.[employer] - 10/01/2022 11:26 AM EDT Images from the original note were not included. NAME: Manihs Root [facility] NO.: [id number] DATE OF SERVICE: October 01, 2022 (Surinder) [...] Ca Stage 3 - 2/5 LN + Dewitt regimen on protocol Updated Visit, October 01, [...] APRN.CNP Hematology and Oncology Services Provided at: [place], [place] CC: Dr. Yordan Morales I spent a total of 30 minutes on the date of the service which included preparing to see the patient, sqdc-sx-urnl patient care, completing clinical documentation, obtaining and/or reviewing separately obtained history, performing a medically appropriate examination, counseling and educating the pat ient/family/caregiver, ordering medications, tests, or procedures, independently interpreting results (not separately reported), and communicating results to the patient/family/caregiver. documented in this encounterCleveland Clinic [facility]03-27-2023 History of Present illness Narrative* Yordan [...] outlined. Yordan Feliz MD documented in this encounterCleveland Clinic Hillcre[facility]03-20-2023 History of Present illness Narrative* Yordan [...] Continue radiation as outlined. documented in this encounterCleveland Clinic Hillcrest Hospital03-17-2023 History of Present illness Narrative* Dee Gil, KARLOS - 09/21/2022 10:06 AM EDT Oncology Nutrition [...] Dosing Weight: 84.8 kg Estimated kilocalorie needs: 4894-2289 kilocalories determined by 25-30 kcal/kg Estimated protein needs: 85-102 grams determined by 1.0-1.2 g/kg Current weight Estimated fluid needs: ~8248-0778 milliliters based on 1 mL per kcal [...] will continue to follow Referred by: Agustín ABRROS Billing Type: Re-assess/15 min 1 unit Time Spent with Patient: 15 minutes Signed by: Dee Gil MS, RDN, LD documented in this encounterCleveland Clinic Hill[facility]03-13-2023 History of Present illness Narrative* G [...] Continue radiation as outlined. documented in this encounterCleveland Clinic Hillcre[facility]03-06-2023 History of Present illness Narrative* Yordan [...] Continue radiation as outlined. documented in this encounterCleveland Clinic Hillcrest [facility] Miscellaneous Notes* Telephone Encounter - ISH Waite - 09/07/2022 12:11 PM EST SOCIAL WORK FOLLOW UP NOTE: [facility]CER CENTER Date of service:09/07/22 Manish Root is being seen for a follow up social work visit. Today's visit includes: patient TOPICS ADDRESSED: community resources and [employer] [facility] PLAN: Assist with financial support applications and Continue follow up as needed F/U APPOINTMENT: PRN Assigned SW listed in Care Team tab: Yes Patient dropped off a partial completed intake form for the [facility]. Sw completed the medical section of the form and faxed it to Maren at the [facility]. JEANNETTE called Maren to verify that the fax was received. SW called Patient to let him know that his application was received and he needs to call Maren to talk about next steps. SW will remain available and will follow up as appropriate. CHARLIE Waite documented in this encounterC[facility]03-02-2023 Miscellaneous Notes* Telephone Encounter - Rafael Bob [...] protocol. Rafael Bob RN documented in this encounterCleveland Clinic Hillcrest [facility]02-27-2023 History of Present illness Narrative* Nica [...] ordered. Araceli Anne RN documented in this encounterCleveland Clinic Hillcrest Hospital02-27-2023 Instructions* Patient Instructions* John England MD - 09/03/2022 11:12 AM EST Start Cisplatin weekly to start with radiation Labs weekly please. RTC 1 week See Amina / Natalie Hillman same day. documented in this encounterCleveland Clinic Hillcre[facility] Hospital02-27-2023 History of Present illness Narrative* John England MD - 09/03/2022 10:45 AM EST Images from the original note were not included. NAME: Manish Root [facility] NO.: [id number] DATE OF SERVICE: September 03, 2022 (Jacquelyn) [...] RTC 1 week See Amina / Natalie Hillman same day. HPI: CASE HISTORY: Reverse Chronological [...] Ca Stage 3 - 2/5 LN + Dewitt regimen on protocol Updated Visit, September 03, [...] which included preparing to see the patient, [id number] patient care, completing clinical documentation, performing a medically appropriate examination, counseling and educating the patient/family/caregiver, ordering medications, tests, or p rocedures, communicating with other HCPs (not separately reported), independently interpreting results (not separately reported), and care coordination (not separately reported). John England MD, CPE Hematology and Oncology Services Provided at: [place], [place] CC: MD Serene Mcclendon MD documented in this encounterCleveland Clinic Hill[facility]02-27-2023 History of Present illness Narrative* Yordan [...] Continue radiation as prescribed. documented in this encounterCleveland Clinic Hillcre[facility] Hospital02-22-2023 Miscellaneous Notes* Telephone Encounter - Rafael Bob RN - 08/29/2022 12:52 PM EST Pt calls w/ questions pertaining to his upcoming treatment. Questions reviewed and answered. Pt denies any further questions at this time. Rafael Bob RN documented in this encounterCleveland Clinic Hill[facility]02-21-2023 Miscellaneous Notes* Telephone Encounter - Rafael Bob RN - 08/28/2022 5:17 PM EST Pt notified and verbalizes understanding. Rafael Bob RN * Telephone Encounter - John Engalnd MD - 08/28/2022 5:15 PM EST Pet [...] Thanks! Rafael Bob RN documented in this encounterCleveland Clinic Hill[facility]02-20-2023 Miscellaneous Notes* Telephone Encounter - Rafael Bob RN - 08/27/2022 11:23 AM EST Pt had several questions pertaining to treatment while he was here today. Questions reviewed and answered in person. No additional questions noted. Appointment reminder provided to pt as well. Rafael Bob RN documented in this encounterCleveland Clinic Hillcrest Hospital02-20-2023 History of Present illness Narrative* Barry [...] 941 PATIENT DISCHARGED TO: Ambulatory patient, left [place] department area. A Diagnostic radioactive procedure has taken place, with no further precautions necessary other than routine body substance precautions. More information regarding radiation safety can be found usingthis link: [email or web address] SIGNATURE: RT Perlita(R) PATIENT NAME: Manish Root DATE: August 27, 2022 TIME: 9:53 AM PAGER/CONTACT #: documented in this encounterCleveland Clinic Hillcre[facility] Hospital02-17-2023 Miscellaneous Notes* Telephone Encounter - Madonna [...] and notify pt of appointment. Thanks! Rafael Bob, RN documented in this encounterCleveland Clinic Hill[facility] Hospital02-16-2023 History of Present illness Narrative* Yordan Feliz MD - 08/23/2022 12:00 AM EST MANISH ROOT [id number] 08/23/2022 [facility] Radiation Oncology Department SIMULATION NOTE DATE OF SIMULATION: 08/23/2022 THERAPIST: Vinita Calderon MACHINE: Partender DIAGNOSIS: Malignant neoplasm of base of [id number] AREA: H&N CONTRAST: IV Consent in Epic: [...] / NRS 1:21 AM documented in this encounterCleveland Clinic Hillcre[facility] Hospital02-16-2023 History of Present illness Narrative* Yordan Feliz MD - 08/23/2022 12:00 AM EST MANISH ROOT [id number] 08/23/2022 [facility] Department of Radiation Oncology Treatment [...] Feliz M.D. 0:14 AM documented in this encounterCleveland Clinic Hill[facility]02-14-2023 Miscellaneous Notes* Telephone Encounter - Rafael Bob RN - 08/21/2022 3:16 PM EST Pt will be in on for education (Cisplatin). Scripts for antiemetics pended. Sincere: Please place chemotherapy orders. Thanks! Rafael Bob RN documented in this encounterCleveland Clinic Hill[facility]02-13-2023 History of Present illness Narrative* Dee [...] Dosing Weight: 84.7 kg Estimated kilocalorie needs: 8348-3513 kilocalories determined by 25-30 kcal/kg Estimated protein needs: 85-102 grams determined by 1.0-1.2 g/kg Dosing weight Estimated fluid needs: ~5133-6317 milliliters based on 1 mL per kcal [...] Gil MS, RDN, LD documented in this encounterCleveland Clinic Hill[facility]02-09-2023 Instructions* Patient Instructions* John England MD - 08/16/2022 4:45 PM EST Will plan Cisplatin weekly to start with radiation Needs labs next visit at time of Sim. RTC prior to start Consent signed Needs education documented in this encounterCleveland Clinic Hill[facility]02-09-2023 History of Present illness Narrative* John England MD - 08/16/2022 4:06 PM EST Images from the original note were not included. NAME: Manish Root [facility] NO.: [id number] DATE OF SERVICE: August 16, 2022 Referring [...] Ca Stage 3 - 2/5 LN + Dewitt regimen on protocol Initial Visit, August 16, [...] which included preparing to see the patient, [id number] patient care, completing clinical documentation, performing a medically appropriate examination, counseling and educating the patient/family/caregiver, ordering medications, tests, or p rocedures, communicating with other HCPs (not separately reported), independently interpreting results (not separately reported), and care coordination (not separately reported). John Engladn MD, CPE Hematology and Oncology Services Provided at: [place], [place] CC: MD Serene Mcclendon MD documented in this encounterCleveland Clinic Hill[facility]02-08-2023 Miscellaneous Notes* Telephone Encounter - Randal Brooks - 08/15/2022 1:14 PM EST Patient called back and said that he is scheduled at [facility] in [place], [place] 08/15/22. Dental evaluation form has been faxed to: [phone]. Randal Brooks * Telephone Encounter - Randal Brooks - 08/15/2022 11:47 AM EST Patient has been scheduled for dental appointment at [facility] on 09/04. Due to the nature [...] Antoine RN - 08/15/2022 9:56 AM EST [facility] will need referral placed to see pt and schedule dental eval for clearance. Dr Dave- can you please sign in Dr Feliz's absence? Thank you Nela Antoine RN documented in this encounterCleveland Clinic Hill[facility]02-07-2023 History of Present illness Narrative* G [...] the lung. Would recommend concurrent radiation with shishmaref ira based chemotherapy. Patient is eligible for current [...] by: Yordan Feliz MD cc: Mannie Nelson [address] [place] [id number] Serene Morales MD [address] [place] [id number] documented in this encounterCleveland Clinic Hillcre[facility] Hospital02-07-2023 Nurse Note* Nela Antoine RN - 08/14/2022 10:58 AM EST Radiation Therapy - Patient Education Note PATIENT NAME: Manish Root PATIENT August 14, 2022 [facility] FACILITY/LOCATION: [facility] READINESS TO LEARN Cognitive Ability: Alert and [...] by: Nela Antoine RN documented in this encounterCleveland Clinic Hillcre[facility] Hospital01-24-2023 NoteOPERATIVE NOTE OPERATION DATE: 07/31/2022 PRIMARY [...] to the recovery room in good condition.[facility] [id number] NoteOPERATIVE NOTE OPERATION DATE: 07/18/2022 PREOPERATIVE DIAGNOSIS: [...] pathology results. CC: [facility] NoteChief Complaint consultation for colon recall HPI [...] cancer History of colon polyps History of ND (myocardial infarction) HTN (hypertension) Hypercholesterolemia OJEDA (nonalcoholic [...] Oral, Daily ergocalciferol 50,000 intl units Cap, 78188 International_Unit= 1 cap(s), Oral, qWeek fenofibrate 134 [...] 06/13/2022 Family History Patient (more content not included)...[facility] HospitalComment on above:Result Comment: Electronically Signed By: JAQUAN WELCH, Renea Anderson\Date and Time Signed: 06/13/22 15:31 [id number] History of Past illness Narrative* ProblemNoted DateResolved DateOverlapping malignant neoplasm of colon documented as of this encounter (statuses as of 08/14/2022) [facility] of Past illness Narrative* ProblemNoted Date Resolved DateOverlapping malignant neoplasm of colon documented as of this encounter (statuses as of 08/14/2022) [facility] History of Past illness Narrative* ProblemNoted Date Resolved DateOverlapping malignant neoplasm of colon documented as of this encounter (statuses as of 08/15/2022) [facility] History of Past illness Narrative* ProblemNoted Date Resolved DateOverlapping malignant neoplasm of colon documented as of this encounter (statuses as of 08/17/2022) [address]22-2015 History of Past illness Narrative* ProblemNoted Date Resolved DateOverlapping malignant neoplasm of colon documented as of this encounter (statuses as of 08/20/2022) [address]22-2015 History of Past illness Narrative* ProblemNoted Date Resolved DateOverlapping malignant neoplasm of colon documented as of this encounter (statuses as of 08/22/2022) [address]22-2015 History of Past illness Narrative* ProblemNoted Date Resolved DateOverlapping malignant neoplasm of colon documented as of this encounter (statuses as of 08/22/2022) [address]22[address]2015 History of Past illness Narrative* ProblemNoted Date Resolved DateOverlapping malignant neoplasm of colon documented as of this encounter (statuses as of 08/24/2022) [address]22[address]2015 History of Past illness Narrative* ProblemNoted Date Resolved DateOverlapping malignant neoplasm of colon documented as of this encounter (statuses as of 08/24/2022) [address]22[address]2015 History of Past illness Narrative* ProblemNoted Date Resolved DateOverlapping malignant neoplasm of colon documented as of this encounter (statuses as of 08/27/2022) [address]22[address]2015 History of Past illness Narrative* ProblemNoted Date Resolved DateOverlapping malignant neoplasm of colon documented as of this encounter (statuses as of 08/27/2022) [address]22[address]2015 History of Past illness Narrative* ProblemNoted Date Resolved DateOverlapping malignant neoplasm of colon documented as of this encounter (statuses as of 08/28/2022) [address]22[address]2015 History of Past illness Narrative* ProblemNoted Date Resolved DateOverlapping malignant neoplasm of colon documented as of this encounter (statuses as of 08/29/2022) [address]22[address]2015 History of Past illness Narrative* ProblemNoted Date Resolved DateOverlapping malignant neoplasm of colon documented as of this encounter (statuses as of 09/03/2022) [address]22-2015 History of Past illness Narrative* ProblemNoted Date Resolved DateOverlapping malignant neoplasm of colon documented as of this encounter (statuses as of 09/03/2022) [address] History of Past illness Narrative* ProblemNoted Date Resolved DateOverlapping malignant neoplasm of colon documented as of this encounter (statuses as of 09/04/2022) [address]22[address]2015 History of Past illness Narrative* ProblemNoted Date Resolved DateOverlapping malignant neoplasm of colon documented as of this encounter (statuses as of 09/06/2022) [address] History of Past illness Narrative* ProblemNoted Date Resolved DateOverlapping malignant neoplasm of colon documented as of this encounter (statuses as of 09/07/2022) [address]22[address]2015 History of Past illness Narrative* ProblemNoted Date Resolved DateOverlapping malignant neoplasm of colon documented as of this encounter (statuses as of 09/10/2022) [address] History of Past illness Narrative* ProblemNoted Date Resolved DateOverlapping malignant neoplasm of colon documented as of this encounter (statuses as of 09/10/2022) [address] History of Past illness Narrative* ProblemNoted Date Resolved DateOverlapping malignant neoplasm of colon documented as of this encounter (statuses as of 09/11/2022) [address]2015 History of Past illness Narrative* ProblemNoted Date Resolved DateOverlapping malignant neoplasm of colon documented as of this encounter (statuses as of 09/17/2022) [address]22[address]2015 History of Past illness Narrative* ProblemNoted Date Resolved DateOverlapping malignant neoplasm of colon documented as of this encounter (statuses as of 09/18/2022) [address]22[address]2015 History of Past illness Narrative* ProblemNoted Date Resolved DateOverlapping malignant neoplasm of colon documented as of this encounter (statuses as of 09/21/2022) [address]22[address]2015 History of Past illness Narrative* ProblemNoted Date Resolved DateOverlapping malignant neoplasm of colon documented as of this encounter (statuses as of 09/24/2022) [address]22[address]2015 History of Past illness Narrative* ProblemNoted Date Resolved DateOverlapping malignant neoplasm of colon documented as of this encounter (statuses as of 10/01/2022) [address]22[address]2015 History of Past illness Narrative* ProblemNoted Date Resolved DateOverlapping malignant neoplasm of colon documented as of this encounter (statuses as of 10/03/2022) [facility] of [facility] Narrative* ProblemNoted Date Resolved DateOverlapping malignant neoplasm of colon documented as of this encounter (statuses as of 10/05/2022) [address]22[address]2015 History of Past illness Narrative* ProblemNoted Date Resolved DateOverlapping malignant neoplasm of colon documented as of this encounter (statuses as of 10/08/2022) [address]22[address]2015 History of Past illness Narrative* ProblemNoted Date Resolved DateOverlapping malignant neoplasm of colon documented as of this encounter (statuses as of 10/09/2022) [address]22[address]2015 History of Past illness Narrative* ProblemNoted Date Resolved DateOverlapping malignant neoplasm of colon documented as of this encounter (statuses as of 10/11/2022) [address]22[address]2015 History of Past illness Narrative* ProblemNoted Date Resolved DateOverlapping malignant neoplasm of colon documented as of this encounter (statuses as of 10/15/2022) [address]22[address]2015 History of Past illness Narrative* ProblemNoted Date Resolved DateOverlapping malignant neoplasm of colon documented as of this encounter (statuses as of 10/19/2022) [address]22[address]2015 History of Past illness Narrative* ProblemNoted Date Resolved DateOverlapping malignant neoplasm of colon documented as of this encounter (statuses as of 10/20/2022) [address]22[address]2015 History of Past illness Narrative* ProblemNoted Date Resolved DateOverlapping malignant neoplasm of colon documented as of this encounter (statuses as of 10/26/2022) [address]22[address]2015 History of Past illness Narrative* ProblemNoted Date Resolved DateOverlapping malignant neoplasm of colon documented as of this encounter (statuses as of 2022) [address]22[address]2015 History of Past illness Narrative* ProblemNoted Date Resolved DateOverlapping malignant neoplasm of colon documented as of this encounter (statuses as of 2022) [address]22[address]2015 History of Past illness Narrative* ProblemNoted Date Resolved DateOverlapping malignant neoplasm of colon documented as of this encounter (statuses as of 2022) [address]22[address]2015 History of Past illness Narrative* ProblemNoted Date Resolved DateOverlapping malignant neoplasm of colon documented as of this encounter (statuses as of 11/07/2022) [address]22[address]2015 History of Past illness Narrative* ProblemNoted Date Resolved DateOverlapping malignant neoplasm of colon documented as of this encounter (statuses as of 11/07/2022) [address]22[address]2015 History of Past illness Narrative* ProblemNoted Date Resolved DateOverlapping malignant neoplasm of colon documented as of this encounter (statuses as of 12/04/2022) [facility] Narrative* ProblemNoted Date Diagnosed DateResolved DateOverlapping malignant neoplasm of colon04/28/2015 04/28/2015documented as of this encounter (statuses as of 02/06/2023) [facility] of [facility] Narrative* ProblemNoted Date Diagnosed DateResolved DateOverlapping malignant neoplasm of colon04/28/2015 04/28/2015documented as of this encounter (statuses as of 02/06/2023) [facility] Narrative* ProblemNoted Date Diagnosed DateResolved DateOverlapping malignant neoplasm of colon04/28/2015 04/28/2015documented as of this encounter (statuses as of 02/11/2023) [facility] Narrative* ProblemNoted Date Diagnosed DateResolved DateOverlapping malignant neoplasm of colon04/28/2015 04/28/2015documented as of this encounter (statuses as of 03/20/2023) [facility] of [facility] illness Narrative* ProblemNoted Date Diagnosed DateResolved DateOverlapping malignant neoplasm of colon04/28/2015 04/28/2015documented as of this encounter (statuses as of 05/15/2023) [facility] of [facility] Narrative* ProblemNoted Date Diagnosed DateResolved DateOverlapping malignant neoplasm of colon04/28/2015 04/28/2015documented as of this encounter (statuses as of 10/17/2023) [facility] HospitalEvaluation + Plan note No data available for this section General Surgery Bull Evaluation note* Diagnosis 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, unspecified site interpreter and neck cancer (HCC) Malignant neoplasm of head, face, and neck documented in this encounter [facility]* Diagnosis Tongue cancer (HCC)- Primary [...] 2 diabetes mellitus without complication, unspecified whether residential insulin use (HCC) Unspecified essential hypertension documented [...] 3b CKD (HCC) documented in this encounter [facility]* Diagnosis Head and neck cancer (HCC)- Primary Malignant neoplasm of head, face, and neck documented in this encounter [facility] HospitalEvaluchristiana hospital noteNo assessment information availableAvita Health [facility] Work Phone: Evaluation note* Diagnosis Lung nodules Other nonspecific abnormal finding of lung field 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) documented in this encounter [facility]* Diagnosis 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) Mass of right lung documented in this encounter [facility]* Diagnosis Lung nodules Other nonspecific abnormal finding of lung field documented in this encounter [facility]* Diagnosis 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) documented in this encounter [facility]* Diagnosis Tongue cancer (HCC) 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, unspecified site interpreter and neck cancer (HCC) Malignant neoplasm of head, face, and neck documented [facility]* Diagnosis Primary hypertension (CMS/HCC)- Primary Unspecified essential hypertension Coronary artery disease involving [place] coronary artery of [place] heart without angina pectoris (CMS/HCC) Controlled type [...] hyperlipidemia type (CMS/HCC) Coronary artery disease involving [place] coronary artery of [place] heart without angina pectoris (CMS/HCC) Controlled type 2 diabetes mellitus without complication, without long-term current use of insulin (CMS/HCC) 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 [facility]* Diagnosis 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 Other nonspecific abnormal finding of lung field documented in this encounter [facility]* Diagnosis Primary hypertension (CMS/HCC)- Primary Unspecified essential hypertension Coronary artery disease involving [place] coronary artery of [place] heart without angina pectoris (CMS/HCC) Controlled type [...] hyperlipidemia type (CMS/HCC) Coronary artery disease involving [place] coronary artery of [place] heart without angina pectoris (CMS/HCC) Controlled type 2 diabetes mellitus without complication, without long-term current use of insulin (CMS/HCC) Primary hypertension (CMS/HCC)- Primary Unspecified essential hypertension Controlled type 2 diabetes mellitus without complication, without long-term current use of insulin (CMS/HCC) Coronary artery disease involving [place] coronary artery of [place] heart without angina pectoris (CMS/HCC) documented in [facility] encounter [facility]* Diagnosis 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 Lung nodules Other nonspecific abnormal finding of lung field Stage 3 chronic kidney disease, unspecified whether stage 3a or 3b CKD (HCC) [facility] Diagnosis Head and neck cancer (HCC)- Primary Malignant neoplasm of head, face, and neck [facility]* Diagnosis Primary hypertension (CMS/HCC)- Primary Unspecified essential hypertension Coronary artery disease involving [place] coronary artery of [place] heart without angina pectoris (CMS/HCC) Controlled type [...] hyperlipidemia type (CMS/HCC) Coronary artery disease involving [place] coronary artery of [place] heart without angina pectoris (CMS/HCC) Controlled type 2 diabetes mellitus without complication, without long-term current use of insulin (CMS/HCC) Primary hypertension (CMS/HCC) Unspecified essential hypertension documented in this encounter [facility]* Diagnosis Primary hypertension (CMS/HCC)- Primary Unspecified essential hypertension Coronary artery disease involving [place] coronary artery of [place] heart without angina pectoris (CMS/HCC) Controlled type [...] hyperlipidemia type (CMS/HCC) Coronary artery disease involving [place] coronary artery of [place] heart without angina pectoris (CMS/HCC) Controlled type 2 diabetes mellitus without complication, without long-term current use of insulin (CMS/HCC) Seborrheic keratosis- Primary Actinic keratosis documented in this encounter [facility] HealthcareEvaluation [facility]* Diagnosis Primary hypertension (CMS/HCC)- Primary Unspecified essential hypertension Coronary artery disease involving [place] coronary artery of [place] heart without angina pectoris (CMS/HCC) Controlled type [...] hyperlipidemia type (CMS/HCC) Coronary artery disease involving [place] coronary artery of [place] heart without angina pectoris (CMS/HCC) Controlled type 2 diabetes mellitus without complication, without long-term current use of insulin (CMS/HCC) 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 documented in this encounter [facility] HealthcareEvaluation note* Diagnosis 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 documented in this encounter [facility] HealthcareEvaluation note* Diagnosis Primary hypertension (CMS/HCC)- Primary Unspecified essential hypertension Coronary artery disease involving [place] coronary artery of [place] heart without angina pectoris (CMS/HCC) Controlled type [...] hyperlipidemia type (CMS/HCC) Coronary artery disease involving [place] coronary artery of [place] heart without angina pectoris (CMS/HCC) Controlled type [...] Unspecified essential hypertension Coronary artery disease involving [place] coronary artery of [place] heart without angina pectoris (CMS/HCC) Controlled type 2 diabetes mellitus without complication, without long-term current use of insulin (CMS/[facility]) Encounter for Medicare annual wellness exam Neck [...] hyperlipidemia type (CMS/HCC) Coronary artery disease involving [place] coronary artery of [place] heart without angina pectoris (CMS/HCC) Controlled type 2 diabetes mellitus without complication, without long-term current use of insulin (CMS/HCC) Need for vaccination Need for prophylactic vaccination and inoculation against unspecified single disease documented in this encounter [facility]* Diagnosis Primary hypertension (CMS/HCC)- Primary Unspecified essential hypertension Coronary artery disease involving [place] coronary artery of [place] heart without angina pectoris (CMS/HCC) Controlled type [...] hyperlipidemia type (CMS/HCC) Coronary artery disease involving [place] coronary artery of [place] heart without angina pectoris (CMS/HCC) Controlled type 2 diabetes mellitus without complication, without long-term current use of insulin (CMS/HCC) 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 documented in this encounter [facility] HealthcareEvaluation note* Diagnosis Primary hypertension (CMS/HCC)- Primary Unspecified essential hypertension Coronary artery disease involving [place] coronary artery of [place] heart without angina pectoris (CMS/HCC) Controlled type [...] hyperlipidemia type (CMS/HCC) Coronary artery disease involving [place] coronary artery of [place] heart without angina pectoris (CMS/HCC) Controlled type [...] unspecified Actinic keratosis documented in this encounter [facility] HealthcareEvaluation note* Diagnosis Primary hypertension (CMS/HCC)- Primary Unspecified essential hypertension Coronary artery disease involving [place] coronary artery of [place] heart without angina pectoris (CMS/HCC) Controlled type 2 diabetes mellitus without complication, without long-term current use of insulin ([facility]) Encounter for Medicare annual wellness exam Neck muscle spasm- Primary Type 2 diabetes mellitus without complications (/HCC) Controlled type 2 diabetes mellitus without complication, without long-term current use of insulin (/[facility]) Stage 2 chronic kidney disease- Primary Type 2 diabetes mellitus without complication, without long-term current use of insulin ([facility]) Primary hypertension ([facility]) Unspecified essential hypertension Hyperlipidemia, unspecified hyperlipidemia type (/[facility]) Coronary artery disease involving [place] coronary artery of [place] heart without angina pectoris (/[facility]) Controlled type 2 diabetes mellitus without complication, without long-term current use of insulin ([facility]) Seborrheic keratosis- Primary Actinic keratosis Seborrheic keratosis, inflamed documented in this encounter [facility] HealthcareEvaluation note* Diagnosis Primary hypertension (/HCC)- Primary Unspecified essential hypertension Coronary artery disease involving [place] coronary artery of [place] heart without angina pectoris (/[facility]) Controlled type 2 diabetes mellitus without complication, without long-term current use of insulin Encounter for Medicare annual wellness exam Neck muscle spasm- Primary Type 2 diabetes mellitus without complications Controlled type 2 diabetes mellitus without complication, without long-term current use of insulin Stage 2 chronic kidney disease- Primary Type 2 diabetes mellitus without complication, without long-term current use of insulin Primary hypertension (/[facility]) Unspecified essential hypertension Hyperlipidemia, unspecified hyperlipidemia type (/[facility]) Coronary artery disease involving [place] coronary artery of [place] heart without angina pectoris (/[facility]) Controlled type 2 diabetes mellitus without complication, without long-term current use of insulin Neck pain on left side- Primary Left hip pain Pain in joint, pelvic region and thigh Osteoarthritis, unspecified osteoarthritis type, unspecified site Stress incontinence of urine documented in this encounter [facility]Evaluation note* Diagnosis Primary hypertension ([facility]/HCC)- Primary Unspecified essential hypertension Coronary artery disease involving [place] coronary artery of [place] heart without angina pectoris (/[facility]) Controlled type 2 diabetes mellitus without complication, without long-term current use of insulin Encounter for Medicare annual wellness exam Neck muscle spasm- Primary Type 2 diabetes mellitus without complications Controlled type 2 diabetes mellitus without complication, without long-term current use of insulin Stage 2 chronic kidney disease- Primary Type 2 diabetes mellitus without complication, without long-term current use of insulin Primary hypertension ([facility]) Unspecified essential hypertension Hyperlipidemia, unspecified hyperlipidemia type (CMS/HCC) Coronary artery disease involving [place] coronary artery of [place] heart without angina pectoris (CMS/HCC) Controlled type 2 diabetes mellitus without complication, without long-term current use of insulin 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 documented in this encounter [facility] note* Diagnosis Primary hypertension (CMS/HCC)- Primary Unspecified essential hypertension Coronary artery disease involving [place] coronary artery of [place] heart without angina pectoris (CMS/HCC) Controlled type [...] hyperlipidemia type (CMS/HCC) Coronary artery disease involving [place] coronary artery of [place] heart without angina pectoris (CMS/HCC) Controlled type 2 diabetes mellitus without complication, without long-term current use of insulin Primary osteoarthritis of left hip- Primary Neck pain on left side Left hip pain Pain in joint, pelvic region and thigh Spondylosis of cervical region without myelopathy or radiculopathy Rheumatoid arthritis, unspecified documented in this encounter [facility] HealthcareEvaluation note* Diagnosis 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 Lung nodules Other nonspecific abnormal finding of lung field Stage 3 chronic kidney disease, unspecified whether stage 3a or 3b CKD (HCC) [facility] Diagnosis Acquired hypothyroidism- Primary Unspecified hypothyroidism [facility] Diagnosis Primary hypertension (CMS/HCC)- Primary Unspecified essential hypertension Coronary artery disease involving [place] coronary artery of [place] heart without angina pectoris (CMS/HCC) Controlled type [...] hyperlipidemia type (CMS/HCC) Coronary artery disease involving [place] coronary artery of [place] heart without angina pectoris ([facility]) Controlled type 2 diabetes mellitus without complication, without long-term current use of insulin 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 Effusion of left knee Acute pain of left knee 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, without long-term current use of insulin ([facility]) documented in this encounter [facility] note* Diagnosis Primary hypertension- Primary Unspecified essential hypertension Coronary artery disease involving [place] coronary artery of [place] heart without angina pectoris Controlled type 2 diabetes mellitus without complication, without long-term current use of insulin ([facility]) Encounter for Medicare annual wellness exam Neck muscle spasm- Primary Type 2 diabetes mellitus without complications ([facility]) Controlled type 2 diabetes mellitus without complication, without long-term current use of insulin ([facility]) Stage 2 chronic kidney disease- Primary Type 2 diabetes mellitus without complication, without long-term current use of insulin ([facility]) Primary hypertension Unspecified essential hypertension Hyperlipidemia, unspecified hyperlipidemia type Coronary artery disease involving [place] coronary artery of [place] heart without angina pectoris Controlled type 2 diabetes mellitus without complication, without long-term current use of insulin ([facility]) Left hip pain- Primary Pain in joint, pelvic region and thigh Effusion of left knee Acute pain of left knee documented in this encounter [facility] HealthcareEvaluation note* Diagnosis Primary hypertension- Primary Unspecified essential hypertension Coronary artery disease involving [place] coronary artery of [place] heart without angina pectoris Controlled type 2 diabetes mellitus without complication, without long-term current use of insulin ([facility]) Encounter for Medicare annual wellness exam Neck muscle spasm- Primary Type 2 diabetes mellitus without complications ([facility]) Controlled type 2 diabetes mellitus without complication, without long-term current use of insulin ([facility]) Stage 2 chronic kidney disease- Primary Type 2 diabetes mellitus without complication, without long-term current use of insulin ([facility]) Primary hypertension Unspecified essential hypertension Hyperlipidemia, unspecified hyperlipidemia type Coronary artery disease involving [place] coronary artery of [place] heart without angina pectoris Controlled type 2 diabetes mellitus without complication, without long-term current use of insulin ([facility]) Left lumbar radiculitis- Primary Left hip pain Pain in joint, pelvic region and thigh documented in this encounter [facility] note* Diagnosis Primary hypertension- Primary Unspecified essential hypertension Coronary artery disease involving [place] coronary artery of [place] heart without angina pectoris Controlled type 2 diabetes mellitus without complication, without long-term current use of insulin ([facility]) Encounter for Medicare annual wellness exam Neck muscle spasm- Primary Type 2 diabetes mellitus without complications (HCC) Controlled type 2 diabetes mellitus without complication, without long-term current use of insulin (HCC) Stage 2 chronic kidney disease- Primary Type 2 diabetes mellitus without complication, without long-term current use of insulin (HCC) Primary hypertension Unspecified essential hypertension Hyperlipidemia, unspecified hyperlipidemia type Coronary artery disease involving [place] coronary artery of [place] heart without angina pectoris Controlled type 2 diabetes mellitus without complication, without long-term current use of insulin (HCC) 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 documented in this encounter [facility] note* Diagnosis Primary hypertension- Primary Unspecified essential hypertension Coronary artery disease involving [place] coronary artery of [place] heart without angina pectoris Controlled type 2 [...] unspecified hyperlipidemia type Coronary artery disease involving [place] coronary artery of [place] heart without angina pectoris Controlled type 2 diabetes mellitus without complication, without long-term current use of insulin (HCC) Primary osteoarthritis of left hip- Primary Pseudogout involving multiple joints Primary hypertension Unspecified essential hypertension 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, without long-term current use of insulin (HCC) Moderate mixed hyperlipidemia not requiring statin therapy documented in this encounter [facility]Evaluation note* Diagnosis Primary hypertension- Primary Unspecified essential hypertension Coronary artery disease involving [place] coronary artery of [place] heart without angina pectoris Controlled type 2 [...] unspecified hyperlipidemia type Coronary artery disease involving [place] coronary artery of [place] heart without angina pectoris Controlled type 2 diabetes mellitus without complication, without long-term current use of insulin (HCC) 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 documented in this encounter [facility] note* Diagnosis Primary hypertension- Primary Unspecified essential hypertension Coronary artery disease involving [place] coronary artery of [place] heart without angina pectoris Controlled type 2 [...] unspecified hyperlipidemia type Coronary artery disease involving [place] coronary artery of [place] heart without angina pectoris Controlled type 2 diabetes mellitus without complication, without long-term current use of insulin (HCC) Left hip pain- Primary Pain in joint, pelvic region and thigh Pseudogout involving multiple joints Primary osteoarthritis of left hip documented in this encounter [facility] note* Diagnosis Primary hypertension- Primary Unspecified essential hypertension Coronary artery disease involving [place] coronary artery of [place] heart without angina pectoris Controlled type 2 [...] unspecified hyperlipidemia type Coronary artery disease involving [place] coronary artery of [place] heart without angina pectoris Controlled type 2 diabetes mellitus without complication, without long-term current use of insulin (HCC) Primary osteoarthritis of left hip- Primary 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, without long-term current use of insulin (HCC) Coronary artery disease involving [place] coronary artery of [place] heart without angina pectoris Abnormal EKG Nonspecific abnormal electrocardiogram (ECG) (EKG) History of heart artery stent documented in this encounter [facility] HealthcareEvaluation note* Diagnosis Primary hypertension- Primary Unspecified essential hypertension Coronary artery disease involving [place] coronary artery of [place] heart without angina pectoris Controlled type 2 [...] unspecified hyperlipidemia type Coronary artery disease involving [place] coronary artery of [place] heart without angina pectoris Controlled type 2 diabetes mellitus without complication, without long-term current use of insulin (HCC) Primary osteoarthritis of left hip- Primary Pre-op evaluation documented in this encounter [facility] Discharge instructions No data available for this section [facility] [place] Progress note No data available for this section [facility] [place] Reason for referral (narrative)* Diagnostic Procedure Only (Routine) - AuthorizedSpecialtyDiagnoses / ProceduresReferred By Contact Referred To ContactMOLECULAR & FUNCTIONAL IMAGING Diagnoses Cancer of the base of tongue (HCC) Procedures NM PET/CT SKULL-THIGH SUBSEQUENT PET IMAGING CT ATTENUATION SKULL BASE MID-THIGH Yordan Feliz MD [address] [place] [address] [place] [address] Molecular & Functional Imaging [address] [place] [address] Referral IDStatusReasonStart DateExpiration DateVisits RequestedVisits [id number] Auto-Generated Referral / [facility] for referral (narrative)* Diagnostic Procedure Only (Routine) - ClosedSpecialtyDiagnoses / ProceduresReferred By ContactReferred To ContactMOLECULAR & FUNCTIONAL IMAGING Diagnoses Cancer of the base of tongue (HCC) Procedures NM PET/CT SKULL-THIGH SUBSEQUENT PET IMAGING CT ATTENUATION SKULL BASE MID-THIGH Yordan Feliz MD [address] [place] [address] [place] [address] Molecular & Functional Imaging [address] [place] [address] Referral IDStatusReasonStart DateExpiration DateVisits RequestedVisits [id number] Auto-Generated Referral / [facility] (narrative)* Diagnostic Procedure Only (Routine) - ClosedSpecialtyDiagnoses / ProceduresReferred By ContactReferred To ContactMOLECULAR & FUNCTIONAL IMAGING Diagnoses Tongue cancer (HCC) Head and neck cancer (HCC) Procedures NM PET/CT SKULL-THIGH INITIAL PET IMAGING CT ATTENUATION SKULL BASE MID-THIGH Yordan Feliz MD [address] [place] [address] [place] [address] Molecular & Functional Imaging [address] [place] [address] Referral IDStatusReTaylor [facility] DateExpiration DateVisits RequestedVisits [id number] Auto-Generated Referral / [facility] for referral (narrative)No reason for referral information availableOhiohealth Ctr Work Phone: Summary Purpose Family History No Family History [...] COMPUTED TOMOGRAPHY THORAX W/CONTRAST John England MD [address] [place] [address] [place] [address] Ct [facility] [place] [address] Referral IDStatusReasonStcromwell DateExpiration DateVisits RequestedVisits [id number] Auto-Generated Referral /[id number] / ProceduresReferred By ContactReferred To ContactCT IMAGING Diagnoses Lung nodules Procedures CT CHEST W IVCON DIAGNOSTIC COMPUTED TOMOGRAPHY THORAX W/CONTRAST John England MD [address] [facility] [place] [place] [address] Ct Imaging Referral IDStatusReasonStart DateExpiration DateVisits RequestedVisits [id number] Auto-Generated Referral [id number] / ProceduresReferred By ContactReferred To Contact Diagnoses Tongue cancer (HCC) Procedures CT SIM PLANNING RADIATION ONCOLOGY THER RAD SIMULAJ-AIDED FIELD SETTING COMPLEX Yordan Feliz MD [address] [place] [address] [place] [address] Referral IDStatusReasonStart DateExpiration DateVisits RequestedVisits [id number] Review PCP Requested Referral [id number] / ProceduresReferred By ContactReferred To ContactDentistry Diagnoses Tongue cancer (HCC) Procedures CONSULT TO DENTISTRY OFFICE/OUTPATIENT [facility] 60-74 MINUTES Travis Dave MD [address] [place] [address] [place] [address] Referral IDStatusReasonStart DateExpiration DateVisits RequestedVisits [id number] Review PCP Requested Referral [id number] / ProceduresReferred By ContactReferred To ContactOncology Diagnoses Head and neck cancer (HCC) Procedures CONSULT TO ONCOLOGY OFFICE/OUTPATIENT [facility] 60-74 MINUTES Yordan Feliz MD [address] [place] [address] [place] [address] Referral IDStatusReasonStart DateExpiration DateVisits RequestedVisits [id number] PCP Requested Referral [id number] / ProceduresReferred By ContactReferred To ContactMOLECULAR & FUNCTIONAL IMAGING Diagnoses Tongue cancer (HCC) Head and neck cancer (HCC) Procedures NM PET/CT SKULL-THIGH INITIAL PET IMAGING CT ATTENUATION SKULL BASE MID-THIGH Yordan Feliz MD [address] [place] [address] [place] [address] Molecular & Functional Imaging [address] [place] [address] Referral IDStatusReasonStart DateExpiration DateVisits RequestedVisits [id number] Auto-Generated Referral / Medications Administered Section Medication OrderMAR ActionAction DateDoseRateSite [...] than 0.4 mg/mL. Protect from Light. New Bag/Syringe/Iwnsxx3309/03/2022 1:09 PM EST79.6 mg dexAMETHasone 10 mg/NS 50 mL (PYXIS) 10 mg ivpb (DECADRON) 10 mg, INTRAVENOUS, ONCE, 1 dose, On Sat09/03/22 at 1130, Refrigerate. New Bag/Syringe/Yahwmz6109/03/2022 11:50 AM EST10 mg fosaprepitant 150 mg in NaCl 0.9% 250 mL (EMEND) 150 mg, INTRAVENOUS, Administer over 30 Minutes, ONCE, 1 dose, On Sat09/03/22 at 1130, Approximate Total Volume = 280 mL New Bag/Syringe/Caugcl8209/03/2022 12:16 PM UCK111 mg furosemide 40 mg injection (LASIX) 40 mg, INTRAVENOUS, ONCE, 1 dose, On Sat09/03/22 at 1130 Given09/03/2022 2:31 PM EST40 mg magnesium sulfate 2 g in NaCl 0.9% 1,000 mL INTRAVENOUS, at 1,054 mL/hr, Administer over 1 Hours, ONCE, 1 dose, On Sat09/03/22 at 1130, TV 1054ml New Bag/Syringe/Zfsoze3109/03/2022 2:35 PM [id number] mL/hr NaCl 0.9% iv bolus 1,000 mL 1,000 mL, INTRAVENOUS, at 999 mL/hr, Administer over 1 Hours, ONCE, 1 dose, On Sat09/03/22 at 1130 New Bag/Syringe/Nmmuyj9909/03/2022 11:41 AM EST1,000 mL999 mL/hr ondansetron (PF) [...] than 0.4 mg/mL. Protect from Light. New Bag/Syringe/Wcwntr4609/10/2022 2:12 PM EST79.6 mg dexAMETHasone 10 mg/NS 50 mL (PYXIS) 10 mg ivpb (DECADRON) 10 mg, INTRAVENOUS, ONCE, 1 dose, On Sat09/10/22 at 1300, Refrigerate. New Bag/Syringe/Meltnj3909/10/2022 12:56 PM EST10 mg fosaprepitant 150 mg in NaCl 0.9% 250 mL (EMEND) 150 mg, INTRAVENOUS, Administer over 30 Minutes, ONCE, 1 dose, On Sat09/10/22 at 1300, Approximate Total Volume = 280 mL New Bag/Syringe/Koqaqy5409/10/2022 1:20 PM YMU667 mg furosemide 40 mg injection (LASIX) 40 [...] and Hematology/Oncology 4) Eclampsia or Preeclampsia New Bag/Syringe/Igezzy5609/10/2022 3:37 PM EST2 g50 mL/hr NaCl 0.9% 1,000 mL INTRAVENOUS, at 999 mL/hr, Administer over 1 Hours, ONCE, 1 dose, On Sat09/10/22 at 1400 New Bag/Syringe/Xtzrmn6009/10/2022 3:34 PM RHG362 mL/hr NaCl 0.9% iv bolus 1,000 mL 1,000 mL, INTRAVENOUS, at 999 mL/hr, Administer over 1 Hours, ONCE, 1 dose, On Sat09/10/22 at 1400 New Bag/Syringe/Tbepjw2909/10/2022 12:38 PM EST1,000 mL999 mL/hr ondansetron (PF) [...] than 0.4 mg/mL. Protect from Light. New Bag/Syringe/Idcdsq4009/17/2022 1:05 PM EDT79.6 mg dexAMETHasone 10 mg/NS 50 mL (PYXIS) 10 mg ivpb (DECADRON) 10 mg, INTRAVENOUS, ONCE, 1 dose, On Sat09/17/22 at 1230, Refrigerate. New Bag/Syringe/Petten6909/17/2022 12:08 PM EDT10 mg fosaprepitant 150 mg in NaCl 0.9% 250 mL (EMEND) 150 mg, INTRAVENOUS, Administer over 30 Minutes, ONCE, 1 dose, On Sat09/17/22 at 1230, Approximate Total Volume = 280 mL New Bag/Syringe/Evcezk2209/17/2022 12:29 PM MXQ652 mg furosemide 40 mg injection (LASIX) 40 [...] and Hematology/Oncology 4) Eclampsia or Preeclampsia New Bag/Syringe/Rnifnv5709/17/2022 2:25 PM EDT2 g50 mL/hr NaCl 0.9% 1,000 mL INTRAVENOUS, at 999 mL/hr, Administer over 1 Hours, ONCE, 1 dose, On Sat09/17/22 at 1230 New Bag/Syringe/Lwcrke9109/17/2022 2:26 PM JCM012 mL/hr NaCl 0.9% iv bolus 1,000 mL 1,000 mL, INTRAVENOUS, at 999 mL/hr, Administer over 1 Hours, ONCE, 1 dose, On Sat09/17/22 at 1230 New Bag/Syringe/Nwjhwi6509/17/2022 11:20 AM EDT1,000 mL999 mL/hr ondansetron (PF) [...] than 0.4 mg/mL. Protect from Light. New Bag/Syringe/Wyvqxa9010/01/2022 1:16 PM EDT79.6 mg dexAMETHasone 10 mg/NS 50 mL (PYXIS) 10 mg ivpb (DECADRON) 10 mg, INTRAVENOUS, ONCE, 1 dose, On Sat10/01/22 at 1230, Refrigerate. New Bag/Syringe/Fbzrmd0810/01/2022 12:16 PM EDT10 mg fosaprepitant 150 mg in NaCl 0.9% 250 mL (EMEND) 150 mg, INTRAVENOUS, Administer over 30 Minutes, ONCE, 1 dose, On Sat10/01/22 at 1230, Approximate Total Volume = 280 mL New Bag/Syringe/Sghfjn8010/01/2022 12:43 PM EMR581 mg furosemide 40 mg injection (LASIX) 40 [...] and Hematology/Oncology 4) Eclampsia or Preeclampsia New Bag/Syringe/Hprkhb2910/01/2022 2:40 PM EDT2 g50 mL/hr NaCl 0.9% 1,000 mL INTRAVENOUS, at 999 mL/hr, Administer over 1 Hours, ONCE, 1 dose, On Sat10/01/22 at 1230 New Bag/Syringe/Ppsqmq3010/01/2022 2:35 PM RZA193 mL/hr NaCl 0.9% iv bolus 1,000 mL 1,000 mL, INTRAVENOUS, at 999 mL/hr, Administer over 1 Hours, ONCE, 1 dose, On Sat10/01/22 at 1230 New Bag/Syringe/Avxypm4010/01/2022 11:25 AM EDT1,000 mL999 mL/hr ondansetron (PF) [...] than 0.4 mg/mL. Protect from Light. New Bag/Syringe/Milxil5810/08/2022 1:36 PM EDT79.6 mg dexAMETHasone 10 mg/NS 50 mL (PYXIS) 10 mg ivpb (DECADRON) 10 mg, INTRAVENOUS, ONCE, 1 dose, On Sat10/08/22 at 1130, Refrigerate. New Bag/Syringe/Fuirpr8410/08/2022 1:13 PM EDT10 mg fosaprepitant 150 mg in NaCl 0.9% 250 mL (EMEND) 150 mg, INTRAVENOUS, Administer over 30 Minutes, ONCE, 1 dose, On Sat10/08/22 at 1130, Approximate Total Volume = 280 mL New Bag/Syringe/Esuwqo2510/08/2022 12:38 PM DPJ450 mg furosemide 40 mg injection (LASIX) 40 [...] and Hematology/Oncology 4) Eclampsia or Preeclampsia New Bag/Syringe/Jrifux3510/08/2022 3:13 PM EDT2 g50 mL/hr NaCl 0.9% 1,000 mL INTRAVENOUS, at 999 mL/hr, Administer over 1 Hours, ONCE, 1 dose, On Sat10/08/22 at 1230 New Bag/Syringe/Egmwyd9210/08/2022 2:41 PM WNY850 mL/hr NaCl 0.9% iv bolus 1,000 mL 1,000 mL, INTRAVENOUS, at 999 mL/hr, Administer over 1 Hours, ONCE, 1 dose, On Sat10/08/22 at 1130 New Bag/Syringe/Bwxrag0410/08/2022 11:41 AM EDT1,000 mL999 mL/hr ondansetron (PF) 8 mg injection (ZOFRAN) 8 mg, INTRAVENOUS, ONCE, 1 dose, On Sat10/08/22 at 1130 Given04/09/2022 1:13 PM EDT8 mgMedication OrderMAR ActionAction DateDoseRateSite NaCl 0.9% 500 mL INTRAVENOUS, at 999 mL/hr, Administer over 0.5 Hours, ONCE, 1 dose, On Sat10/31/22 at 1600 New Bag/Syringe/Hrlhcq6410/31/2022 2:44 PM WNE027 mL/hr Chief Complaint and Reason for Visit Chief Complaint Plugged ears Chief Complaint Plugged ears Bug bite on R arm Chief Complaint Admit Date Unknown April 29, 2025 1 2:06pm Additional Source Comments Patient Care team informatio n (unrecognized section and content) Team MemberRelationshipSpecialtyStart DateEnd Date Mannie Nelson MD [address] [place] [address] PCP - [facility]11/16/11Team MemberRelationshipSpecialtyStart DateEnd Date Mannie Nelson MD [address] [place] [address] PCP - [facility]11/16/11Team MemberRelationshipSpecialtyStart DateEnd Date Mannie Nelson MD [address] [place] [id number] PCP - [facility]11/16/11Team MemberRelationshipSpecialtyStart DateEnd Date Mannie Nelson MD [address] [place] [address] PCP - [facility]11/16/11Te MemberRelationshipSpecialtyStart DateEnd Date Mannie Nelson MD [address] [place] [id number] [facility] - [facility]/11 Dee Gil, RD [address] [place] [address] [address] [place], [id number] Registered DietitianNutrition08/20/22Team MemberRelationshipSpecialtyStart Date End Date Mannie Nelson MD [address] [facility] [place] [address] PCP - [facility] Medicine11/16/11 Dee Gil, KARLOS [address] [facility] [place] [address] Registered DietitianNutrition08/20/22 John England MD [address] [facility] [place] [address] PhysicianHematology/Oncology08/21/22 Natalie Cadena, TRAFFIC OPERATOR.[facility] [address] [facility] [place] [address] Nurse PractitionerHematology/Oncology08/21/22 Rafael Bob, [place] [address] [facility] [place] [address] Specialty Care CoordinatorHematology/Oncology08/21/22 Yordan Feliz MD [address] [facility] [place] [address] PhysicianRadiation Oncology08/21/22Team MemberRelationshipSpecialtyStart DateEnd Date Mannie Nelson MD [address] [place] [facility] [place] [address] PCP - [facility] Medicine11/16/11 Dee Gil, KARLOS [address] [facility] [place] [address] Registered DietitianNutrition08/20/22 John England MD [address] [facility] [place] [address] PhysicianHematology/Oncology08/21/22 Natalie Cadena, TRAFFIC OPERATOR.[employer] [address] [facility] [place] [address] Nurse PractitionerHematology/Oncology08/21/22 Rafael Bob, RN [address] [facility] [place] [address] Specialty Care CoordinatorHematology/Oncology08/21/22 Yordan Feliz MD [address] [facility] [place] [address] PhysicianRadiation Oncology08/21/22Team MemberRelationshipSpecialtyStart DateEnd Date Mannie Nelson MD [address] [place] [address] PCP - Generalmily Medicine11/16/11 Dee Gil, KARLOS [address] [facility] [place] [address] Registered DietitianNutrition08/20/22 John England MD [address] [facility] [place] [address] PhysicianHematology/Oncology08/21/22 Natalie Cadena, TRAFFIC OPERATOR.[employer]ICAL M[employer] [address] [facility] [place] [address] Nurse PractitionerHematology/Oncology08/21/22 Rafael Bob, [place] [address] [facility] [place] [address] Specialty Care CoordinatorHematology/Oncology08/21/22 Yordan Feliz MD [address] [facility] [place] [address] PhysicianRadiation Oncology08/21/22Team MemberRelationshipSpecialtyStart DateEnd Date Mannie Nelson MD [address] [place] [facility] [place] [address] PCP - GeneralFamily Medicine11/16/11 Dee Gil, RD [address] [facility] [place] [address] Registered DietitianNutrition08/20/22 John England MD [address] [facility] [place] [address] PhysicianHematology/Oncology08/21/22 Natalie Cadena, TRAFFIC OPERATOR.[employer]ICAL MIXER [address] [facility] [place] [address] Nurse PractitionerHematology/Oncology08/21/22 Rafael Bob, [place] [address] [facility] [place] [address] Specialty Care CoordinatorHematology/Oncology08/21/22 Yordan Feliz MD [address] [facility] [place] [address] PhysicianRadiation Oncology08/21/22Team MemberRelationshipSpecialtyStart DateEnd Date Mannie Nelson MD [address] [place] [facility] [place] [address] PCP - GeneralFamily Medicine11/16/11 Dee Gil, RD [address] [facility] [place] [address] Registered DietitianNutrition08/20/22 John England MD [address] [facility] [place] [address] PhysicianHematology/Oncology08/21/22 Natalie Cadena, TRAFFIC OPERATOR.[employer]ICAL MIXER [address] [facility] [place] [address] Nurse PractitionerHematology/Oncology08/21/22 Rafael Bob, [place] [address] [facility] [place] [address] Specialty Care CoordinatorHematology/Oncology08/21/22 Yordan Feliz MD [address] [facility] [place] [address] PhysicianRadiation Oncology08/21/22Team MemberRelationshipSpecialtyStart DateEnd Date Mannie Nelson MD [address] [place] [address] [facility]11/16/11 Dee Gil, KARLOS [address] [facility] [place] [address] Registered DietitianNutrition08/20/22 John England MD [address] [facility] [place] [address] PhysicianHematology/Oncology08/21/22 Natalie Cadena, TRAFFIC OPERATOR.CONICAL MIXER [address] [facility] [place] [address] Nurse PractitionerHematology/Oncology08/21/22 Rafael Bob, [place] [address] [facility] [place] [address] Specialty Care CoordinatorHematology/Oncology08/21/22 Yordan Feliz MD [address] [facility] [place] [address] PhysicianRadiation Oncology08/21/22Team MemberRelationshipSpecialtyStart DateEnd Date Mannie Nelson MD [address] [place] [address] PCP - [facility] Medicine11/16/11Team MemberRelationshipSpecialtyStart DateEnd Date Mannie Nelson MD [address] [place] [address] PCP - [facility] Medicine11/16/11 Dee Gil, RD [address] [facility] [place] [address] Registered DietitianNutrition08/20/22 John England MD [address] [facility] [place] [address] PhysicianHematology/Oncology08/21/22 Natalie Cadena, TRAFFIC OPERATOR.[employer]ICAL MIXER [address] [facility] [place] [address] Nurse PractitionerHematology/Oncology08/21/22 Rafael Bob, [place] [address] [facility] [place] [address] Specialty Care CoordinatorHematology/Oncology08/21/22 Yordan Feliz MD [address] [facility] [place] [address] PhysicianRadiation Oncology08/21/22Team MemberRelationshipSpecialtyStart DateEnd Date Mannie Nelson MD [address] [place] [facility] [place] [address] PCP - [facility] Medicine11/16/11 Dee Gil, KARLOS [address] [facility] [place] [address] Registered DietitianNutrition08/20/22 John England MD [address] [facility] [place] [address] PhysicianHematology/Oncology08/21/22 Natalie Cadena, TRAFFIC OPERATOR.CONICAL MIXER [address] [place] [address] Nurse PractitionerHematology/Oncology08/21/22 Rafael Bob, [place] [address] [facility] [place] [address] Specialty Care CoordinatorHematology/Oncology08/21/22 Yordan Feliz MD [address] [facility] [place] [address] PhysicianRadiation Oncology08/21/22Team MemberRelationshipSpecialtyStart DateEnd Date Mannie Nelson MD [address] [place] [facility] [place] [address] PCP - Generalmily Medicine11/16/11 Dee Gil, KARLOS [address] [facility] [place] [address] Registered DietitianNutrition08/20/22 John England MD [address] [facility] [place] [address] PhysicianHematology/Oncology08/21/22 Natalie Cadena, TRAFFIC OPERATOR.CONICAL MIXER [address] [facility] [place] [address] Nurse PractitionerHematology/Oncology08/21/22 Rafael Bob, [place] [address] [facility] [place] [address] Specialty Care CoordinatorHematology/Oncology08/21/22 Yordan Feliz MD [address] [facility] [place] [address] PhysicianRadiation Oncology08/21/22Team MemberRelationshipSpecialtyStart DateEnd Date Mannie Nelson MD [address] [place] [facility] [place] [address] PCP - GeneralFamily Medicine11/16/11 Dee Gil, KARLOS [address] [facility] [place] [address] Registered DietitianNutrition08/20/22 John England MD [address] [facility] [place] [address] PhysicianHematology/Oncology08/21/22 Natalie Cadena, TRAFFIC OPERATOR.CONICAL MIXER [address] [facility] [place] [address] Nurse PractitionerHematology/Oncology08/21/22 Rafael Bob, [place] [address] [facility] [place] [address] Specialty Care CoordinatorHematology/Oncology08/21/22 Yordan Feliz MD [address] [facility] [place] [address] PhysicianRadiation Oncology08/21/22Team MemberRelationshipSpecialtyStart DateEnd Date Mannie Nelson MD [address] [place] [facility] [place] [address] PCP - GeneralFamily Medicine11/16/11 Dee Gil, KARLOS [address] [facility] [place] [address] Registered DietitianNutrition08/20/22 John England MD [address] [facility] [place] [address] PhysicianHematology/Oncology08/21/22 Natalie Cadena, TRAFFIC OPERATOR.CONICAL MIXER [address] [facility] [place] [address] Nurse PractitionerHematology/Oncology08/21/22 Rafael Bob, [place] [address] [facility] [place] [address] Specialty Care CoordinatorHematology/Oncology08/21/22 Yordan Feliz MD [address] [facility] [place] [address] PhysicianRadiation Oncology08/21/22 Marysol Purvis, [facility] Social Worker09/07/22Team MemberRelationshipSpecialtyStart DateEnd Date Mannie Nelson MD [address] [place] [facility] [place] [address] [facility]11/16/11 Dee Gil, KARLOS [address] [facility] [place] [address] Registered DietitianNutrition08/20/22 John England MD [address] [facility] [place] [address] PhysicianHematology/Oncology08/21/22 Natalie Cadena, TRAFFIC OPERATOR.CONICAL MIXER [address] [facility] [place] [address] Nurse PractitionerHematology/Oncology08/21/22 Rafael Bob, [place] [address] [facility] [place] [address] Specialty Care CoordinatorHematology/Oncology08/21/22 Yordan Feliz MD [address] [facility] [place] [address] PhysicianRadiation Oncology08/21/22 Marysol Purvis, INTEGRATION SOFTWARE DEVELOPER Social Worker09/07/22Team MemberRelationshipSpecialtyStart DateEnd Date Mannie Nelson MD [address] [place] [facility] [place] [address] PCP - GeneralFamily Medicine11/16/11 Dee Gil, RD [address] [facility] [place] [address] Registered DietitianNutrition08/20/22 John England MD [address] [facility] [place] [address] PhysicianHematology/Oncology08/21/22 Natalie Cadena, TRAFFIC OPERATOR.CONICAL MIXER [address] [facility] [place] [address] Nurse PractitionerHematology/Oncology08/21/22 Rafael Bob, [place] [address] [facility] [place] [address] Specialty Care CoordinatorHematology/Oncology08/21/22 Yordan Feliz MD [address] [facility] [place] [address] PhysicianRadiation Oncology08/21/22 Marysol Purvis LSW Social Worker09/07/22Team MemberRelationshipSpecialtyStart DateEnd Date Mannie Nelson MD [address] [facility] [place] [address] PCP - GeneralFamily Medicine11/16/11 Dee Gil, KARLOS [address] [facility] [place] [address] Registered DietitianNutrition08/20/22 John England MD [address] [facility] [place] [address] PhysicianHematology/Oncology08/21/22 Natalie Cadena, TRAFFIC OPERATOR.CONICAL MIXER [address] [facility] [place] [address] Nurse PractitionerHematology/Oncology08/21/22 Rafael Bbo, [place] [address] [facility] [place] [address] Specialty Care CoordinatorHematology/Oncology08/21/22 Yordan Feliz MD [address] [facility] [place] [address] PhysicianRadiation Oncology08/21/22 Marysol Purvis, [facility] Social Worker09/07/22Team MemberRelationshipSpecialtyStart DateEnd Date Mannie Nelson MD [address] [place] [facility] [place] [address] [facility]CP [facility]11/16/11 Dee Gil, KARLOS [address] [facility] [place] [address] Registered DietitianNutrition08/20/22 John England MD [address] [facility] [place] [address] PhysicianHematology/Oncology08/21/22 Natalie Cadena, TRAFFIC OPERATOR.CONICAL MIXER [address] [facility] [place] [address] Nurse PractitionerHematology/Oncology08/21/22 Rafael Bob, [place] [address] [facility] [place] [address] Specialty Care CoordinatorHematology/Oncology08/21/22 Yordan Feliz MD [address] [facility] [place] [address] PhysicianRadiation Oncology08/21/22 Marysol Purvis, [facility] Social Worker09/07/22Team MemberRelationshipSpecialtyStart DateEnd Date Mannie Nelson MD [address] [place] [facility] [place] [address] PCP - GeneralFamily Medicine11/16/11 Dee Gil, RD [address] [facility] [place] [address] Registered DietitianNutrition08/20/22 John England MD [address] [facility] [place] [address] PhysicianHematology/Oncology08/21/22 Natalie Cadena, TRAFFIC OPERATOR.CONICAL MIXER [address] [facility] [place] [address] Nurse PractitionerHematology/Oncology08/21/22 Rafael Bob, [place] [address] [facility] [place] [address] Specialty Care CoordinatorHematology/Oncology08/21/22 Yordan Feliz MD [address] [facility] [place] [address] PhysicianRadiation Oncology08/21/22 Marysol Purvis LSW Social Worker09/07/22Team MemberRelationshipSpecialtyStart DateEnd Date Mannie Nelson MD [address] [facility] [place] [address] PCP - GeneralFamily Medicine11/16/11 Dee Gil, KARLOS [address] [facility] [place] [address] Registered DietitianNutrition08/20/22 John England MD [address] [facility] [place] [address] PhysicianHematology/Oncology08/21/22 Natalie Cadena, TRAFFIC OPERATOR.CONICAL MIXER [address] [facility] [place] [address] Nurse PractitionerHematology/Oncology08/21/22 Rafael Bob, [place] [address] [facility] [place] [address] Specialty Care CoordinatorHematology/Oncology08/21/22 Yordan Feliz MD [address] [facility] [place] [address] PhysicianRadiation Oncology08/21/22 Marysol Purvis, [facility] Social Worker09/07/22Team MemberRelationshipSpecialtyStart DateEnd Date Mannie Nelson MD [address] [place] [address] [facility] - [facility]11/16/11 Dee Gil, KARLOS [address] [facility] [place] [address] Registered DietitianNutrition08/20/22 John England MD [address] [facility] [place] [address] PhysicianHematology/Oncology08/21/22 Natalie Cadena, TRAFFIC OPERATOR.CONICAL MIXER [address] [facility] [place] [address] Nurse PractitionerHematology/Oncology08/21/22 Rafael Bob, [place] [address] [facility] [place] [address] Specialty Care CoordinatorHematology/Oncology08/21/22 Yordan Feliz MD [address] [facility] [place] [address] PhysicianRadiation Oncology08/21/22 Marysol Purvis, INTEGRATION SOFTWARE DEVELOPER Social Worker09/07/22Team MemberRelationshipSpecialtyStart DateEnd Date Mannie Nelson MD [address] [place] [address] PCP - GeneralFamily Medicine11/16/11 Dee Gil, RD [address] [facility] [place] [address] Registered DietitianNutrition08/20/22 John England MD [address] [facility] [place] [address] PhysicianHematology/Oncology08/21/22 Natalie Cadena, TRAFFIC OPERATOR.CONICAL MIXER [address] [facility] [place] [address] Nurse PractitionerHematology/Oncology08/21/22 Rafael Bob, [place] [address] [facility] [place] [address] Specialty Care CoordinatorHematology/Oncology08/21/22 Yordan Feliz MD [address] [facility] [place] [address] PhysicianRadiation Oncology08/21/22 Marysol Purvis LSW Social Worker09/07/22Team MemberRelationshipSpecialtyStart DateEnd Date Mannie Nelson MD [address] [place] [facility] [place] [address] PCP - GeneralFamily Medicine11/16/11 Dee Gil, KARLOS [address] [facility] [place] [address] Registered DietitianNutrition08/20/22 John England MD [address] [facility] [place] [address] PhysicianHematology/Oncology08/21/22 Natalie Cadena, TRAFFIC OPERATOR.CONICAL MIXER [address] [facility] [place] [address] Nurse PractitionerHematology/Oncology08/21/22 Rafael Bob, RN [address] [facility] [place] [address] Specialty Care CoordinatorHematology/Oncology08/21/22 Yordan Feliz MD [address] [facility] [place] [address] PhysicianRadiation Oncology08/21/22 Marysol Purvis, INTEGRATION SOFTWARE DEVELOPER Social Worker09/07/22Team MemberRelationshipSpecialtyStart DateEnd Date Mannie Nelson MD [address] [place] [facility] [place] [place] [address] [facility] - [facility] Medicine11/16/11 Dee Gil, KARLOS [address] [facility] [place] [address] Registered DietitianNutrition08/20/22 John England MD [address] [facility] [place] [address] PhysicianHematology/Oncology08/21/22 Natalie Cadena, YENY.CONICAL MIXER [address] [facility] [place] [address] Nurse PractitionerHematology/Oncology08/21/22 Rafael Bob, RN [address] [facility] [place] [address] Specialty Care CoordinatorHematology/Oncology08/21/22 Yordan Feliz MD [address] [facility] [place] [address] PhysicianRadiation Oncology08/21/22 Marysol Purvis, INTEGRATION SOFTWARE DEVELOPER Social Worker09/07/22Team MemberRelationshipSpecialtyStart DateEnd Date Mannie Nelson MD [address] [place] [facility] [place] [address] PCP - GeneralFamily Medicine11/16/11 Dee Gil, RD [address] [facility] [place] [address] Registered DietitianNutrition08/20/22 John England MD [address] [facility] [place] [address] PhysicianHematology/Oncology08/21/22 Natalie Cadena, TRAFFIC OPERATOR.CONICAL MIXER [address] [facility] [place] [address] Nurse PractitionerHematology/Oncology08/21/22 Rafael Bob, [place] [address] [facility] [place] [address] Specialty Care CoordinatorHematology/Oncology08/21/22 Yordan Feliz MD [address] [facility] [place] [address] PhysicianRadiation Oncology08/21/22 Marysol Purvis LSW Social Worker09/07/22Team MemberRelationshipSpecialtyStart DateEnd Date Mannie Nelson MD [address] [place] [facility] [place] [address] PCP - [facility] Medicine11/16/11 Dee Gil, RD [address] [facility] [place] [address] Registered DietitianNutrition08/20/22 John England MD [address] [facility] [place] [address] PhysicianHematology/Oncology08/21/22 Natalie Cadena, TRAFFIC OPERATOR.CONICAL MIXER [address] [facility] [place] [address] Nurse PractitionerHematology/Oncology08/21/22 Rafael Bob, [place] [address] [facility] [place] [address] Specialty Care CoordinatorHematology/Oncology08/21/22 Yordan Feliz MD [address] [facility] [place] [address] PhysicianRadiation Oncology08/21/22 Marysol Purvis, INTEGRATION SOFTWARE DEVELOPER Social Worker09/07/22Team MemberRelationshipSpecialtyStart DateEnd Date Mannie Nelson MD [address] [place] [facility] [place] [address] PCP - GeneralFamily Medicine11/16/11 Dee Gil, KARLOS [address] [facility] [place] [address] Registered DietitianNutrition08/20/22 John England MD [address] [facility] [place] [address] PhysicianHematology/Oncology08/21/22 Natalie Cadena, TRAFFIC OPERATOR.CONICAL MIXER [address] [facility] [place] [address] Nurse PractitionerHematology/Oncology08/21/22 Rafael Bob, EVENS [address] [facility] [place] [address] Specialty Care CoordinatorHematology/Oncology08/21/22 Yordan Feliz MD [address] [facility] [place] [address] PhysicianRadiation Oncology08/21/22 Marysol Purvis, INTEGRATION SOFTWARE DEVELOPER Social Worker09/07/22Team MemberRelationshipSpecialtyStart DateEnd Date Mannie Nelson MD [address] [place] [facility] [address] PCP - GeneralFamily Medicine11/16/11 Dee Gil, RD [address] [facility] [place] [address] Registered DietitianNutrition08/20/22 John England MD [address] [facility] [place] [address] PhysicianHematology/Oncology08/21/22 Natalie Cadena, TRAFFIC OPERATOR.CONICAL MIXER [address] [facility] [place] [address] Nurse PractitionerHematology/Oncology08/21/22 Rafael Bob, EV[place] [address] [facility] [place] [address] Specialty Care CoordinatorHematology/Oncology08/21/22 Yordan Feliz MD [address] [facility] [place] [address] PhysicianRadiation Oncology08/21/22 Marysol Purvis LSW Social Worker09/07/22Team MemberRelationshipSpecialtyStart DateEnd Date Mannie Nelson MD [address] [place] [facility] [address] PCP - GeneralFamily Medicine11/16/11 Dee Gil, RD [address] [facility] [place] [address] Registered DietitianNutrition08/20/22 John England MD [address] [facility] [place] [address] PhysicianHematology/Oncology08/21/22 Natalie Cadena, TRAFFIC OPERATOR.CONICAL MIXER [address] [facility] [address] [place], [place] [address] Nurse PractitionerHematology/Oncology08/21/22 Rafael Bob, RN [address] [facility] [place] [address] Specialty Care CoordinatorHematology/Oncology08/21/22 Yordan Feliz MD [address] [place] [address] [place] [address] PhysicianRadiation Oncology08/21/22 Marysol Purvis LSW Social Worker09/07/22Team MemberRelationshipSpecialtyStart DateEnd Date Mannie Nelson MD [address] [place] [facility] [place] [address] PCP - GeneralFamily Medicine11/16/11 Dee Gil, KARLOS [address] [facility] [place] [address] Registered DietitianNutrition08/20/22 John England MD [address] [facility] [place] [address] PhysicianHematology/Oncology08/21/22 Natalie Cadena, TRAFFIC OPERATOR.[facility] [address] [facility] [place] [address] Nurse PractitionerHematology/Oncology08/21/22 Rafael Bob, RN [address] [facility] [place] [address] Specialty Care CoordinatorHematology/Oncology08/21/22 Yordan Feliz MD [address] [facility] [place] [address] PhysicianRadiation Oncology08/21/22 Marysol Purvis LSW Social Worker09/07/22Team MemberRelationshipSpecialtyStart DateEnd Date Mannie Nelson MD [address] [place] [facility] [place] [address] PCP - GeneralFamily Medicine11/16/11 Dee Gil, RD [address] [facility] [place] [address] Registered DietitianNutrition08/20/22 John England MD [address] [facility] [place] [address] PhysicianHematology/Oncology08/21/22 Natalie Cadena, TRAFFIC OPERATOR.CONICAL MIXER [address] [facility] [place] [address] Nurse PractitionerHematology/Oncology08/21/22 Rafael Bob, EV[place] [address] [facility] [place] [address] Specialty Care CoordinatorHematology/Oncology08/21/22 Yordan Feliz MD [address] [facility] [place] [address] PhysicianRadiation Oncology08/21/22 Marysol Purvis LSW Social Worker09/07/22Team MemberRelationshipSpecialtyStart DateEnd Date Mannie Nelson MD [address] [place] [facility] [place] [address] PCP - Generalmily Medicine11/16/11 Dee Gil, KARLOS [address] [facility] [place] [address] Registered DietitianNutrition08/20/22 John England MD [address] [facility] [place] [address] PhysicianHematology/Oncology08/21/22 Natalie Cadena, TRAFFIC OPERATOR.CONICAL MIXER [address] [facility] [place] [address] Nurse PractitionerHematology/Oncology08/21/22 Rafael Bob, RN [address] [facility] [place] [address] Specialty Care CoordinatorHematology/Oncology08/21/22 Yordan Feliz MD [address] [facility] [place] [address] PhysicianRadiation Oncology08/21/22 Marysol Purvis, ISH Social Worker09/07/22Team MemberRelationshipSpecialtyStart DateEnd Date Mannie Nelson MD [address] [place] [address] [facility] - [facility] Medicine11/16/11 Dee Gil, RD [address] [facility] [place] [address] Registered DietitianNutrition08/20/22 John England MD [address] [facility] [place] [address] PhysicianHematology/Oncology08/21/22 Natalie Cadena APRN.CONICAL MIXER [address] [facility] [place] [address] Nurse PractitionerHematology/Oncology08/21/22 Rafael Bob, [place] [address] [facility] [place] [address] Specialty Care CoordinatorHematology/Oncology08/21/22 Yordan Feliz MD [address] [facility] [place] [address] PhysicianRadiation Oncology08/21/22 Marysol Purvis LSW Social Worker09/07/22Team MemberRelationshipSpecialtyStart DateEnd Date Mannie Nelson MD [address] [facility] [place] [address] PCP - Generalmily Medicine11/16/11 Dee Tirado, RD [address] [facility] [place] [address] Registered DietitianNutrition08/20/22 John England MD [address] [facility] [place] [address] PhysicianHematology/Oncology08/21/22 Natalie Cadena, TRAFFIC OPERATOR.CONICAL MIXER [address] [facility] [place] [address] Nurse PractitionerHematology/Oncology08/21/22 Rafael Bob, [place] [address] [facility] [place] [address] Specialty Care CoordinatorHematology/Oncology08/21/22 Yordan Feliz MD [address] [facility] [place] [address] PhysicianRadiation Oncology08/21/22 Marysol Purvis LSW Social Worker09/07/22Team MemberRelationshipSpecialtyStart DateEnd Date Mannie Nelson MD [address] [place] [facility] [place] [address] PCP - GeneralMyrtue Medical Centerly Medicine11/16/[address] [facility] [place] [address] Registered DietitianNutrition08/20/22 John England MD [address] [facility] [place] [address] PhysicianHematology/Oncology08/21/22 Natalie Cadena, TRAFFIC OPERATOR.CONICAL MIXER [address] [facility] [place] [address] Nurse PractitionerHematology/Oncology08/21/22 Rafael Bob, RN [address] [facility] [place] [address] Specialty Care CoordinatorHematology/Oncology08/21/22 Yordan Feliz MD [address] [facility] [place] [address] PhysicianRadiation Oncology08/21/22 Marysol Purvis, ISH Social Worker09/07/22Team MemberRelationshipSpecialtyStart DateEnd Date Mannie Nelson MD [address] [place] [address] PCP - GeneralFamily Medicine11/16/11 Dee Tirado, RD [address] [facility] [place] [address] Registered DietitianNutrition08/20/22 John England MD [address] [facility] [place] [address] PhysicianHematology/Oncology08/21/22 Natalie Cadena, TRAFFIC OPERATOR.[facility] [address] [facility] [place] [address] Nurse PractitionerHematology/Oncology08/21/22 Rafael Bob, [place] [address] [facility] [place] [address] Specialty Care CoordinatorHematology/Oncology08/21/22 Yordan Feliz MD [address] [facility] [place] [address] PhysicianRadiation Oncology08/21/22 Marysol Purvis, ISH Social Worker09/07/22Team MemberRelationshipSpecialtyStart DateEnd Date Shaikh Drake MD [address] [place] [address] PCP - GeneralPrimary Care02/06/[address] [facility] [place] [address] Registered DietitianNutrition08/20/22 John England MD [address] [facility] [place] [address] PhysicianHematology/Oncology08/21/22 Natalie Cadena APRN.CONICAL MIXER [address] [facility] [place] [address] Nurse PractitionerHematology/Oncology08/21/22 Rafael Bob, [place] [address] [facility] [place] [address] Specialty Care CoordinatorHematology/Oncology08/21/22 Yordan Feliz MD [address] [facility] [place] [address] PhysicianRadiation Oncology08/21/22 Marysol Purvis LSW Social Worker09/07/22Team MemberRelationshipSpecialtyStart DateEnd Date Shaikh Drake MD [address] [place] [address] PCP - GeneralPrimary Care02/06/[address] [facility] [place] [address] Registered DietitianNutrition08/20/22 John England MD [address] [facility] [place] [address] PhysicianHematology/Oncology08/21/22 Natalie Cadena APRN.CONICAL MIXER [address] [facility] [place] [address] Nurse PractitionerHematology/Oncology08/21/22 Rafael Bob, EV[place] [address] [facility] [place] [address] Specialty Care CoordinatorHematology/Oncology08/21/22 Yordan Feliz MD [address] [facility] [place] [address] PhysicianRadiation Oncology08/21/22 Marysol Purvis LSW Social Worker09/07/22Team MemberRelationshipSpecialtyStart DateEnd Date Shaikh Drake MD [address] [place] [address] PCP - GeneralPrimary Care02/06/[address] [facility] [place] [address] Registered DietitianNutrition08/20/22 John England MD [address] [place] [address] [place] [address] PhysicianHematology/Oncology08/21/22 Natalie Cadena APRN.CONICAL MIXER [address] [facility] [place] [address] Nurse PractitionerHematology/Oncology08/21/22 Rafael Bob RN [address] [facility] [place] [address] Specialty Care CoordinatorHematology/Oncology08/21/22 Yordan Feliz MD [address] [facility] [place] [address] PhysicianRadiation Oncology08/21/22 Marysol Purvis, INTEGRATION SOFTWARE DEVELOPER Social Worker09/07/22Team MemberRelationshipSpecialtyStart DateEnd Date Shaikh Drake MD [address] [place] [address] PCP - GeneralPrimary Care02/06/[address] [place] [address] [place] [address] Registered DietitianNutrition08/20/22 John England MD [address] [place] [address] [place] [address] PhysicianHematology/Oncology08/21/22 Natalie Cadena APRN.CONICAL MIXER [address] [place] [address] [place] [address] Nurse PractitionerHematology/Oncology08/21/22 Rafael Bob RN [address] [facility] [place] [address] Specialty Care CoordinatorHematology/Oncology08/21/22 Yordan Feliz MD [address] [facility] [place] [address] PhysicianRadiation Oncology08/21/22 Marysol Purvis, ISH Social Worker09/07/22Team MemberRelationshipSpecialtyStart DateEnd Date Shaikh Drake MD [address] [place] [address] PCP - GeneralPrimary Care02/06/[address] [facility] [place] [address] Registered DietitianNutrition08/20/22 John England MD [address] [facility] [place] [address] PhysicianHematology/Oncology08/21/22 Natalie Cadena APRN.CONICAL MIXER [address] [facility] [place] [address] Nurse PractitionerHematology/Oncology08/21/22 Rafael Bob, EV[place] [address] [facility] [place] [address] Specialty Care CoordinatorHematology/Oncology08/21/22 Yordan Feliz MD [address] [facility] [place] [address] PhysicianRadiation Oncology08/21/22 Marysol Purvis LSW Social Worker09/07/22Team MemberRelationshipSpecialtyStart DateEnd Date Shaikh Drake MD [address] [place] [address] PCP - GeneralPrimary Care02/06/[address] [facility] [place] [address] Registered DietitianNutrition08/20/22 John England MD [address] [facility] [place] [address] PhysicianHematology/Oncology08/21/22 Natalie Cadena APRN.CONICAL MIXER [address] [facility] [place] [address] Nurse PractitionerHematology/Oncology08/21/22 Rafael Bob, [place] [address] [facility] [place] [address] Specialty Care CoordinatorHematology/Oncology08/21/22 Yordan Feliz MD [address] [facility] [place] [address] PhysicianRadiation Oncology08/21/22 Marysol Purvis LSW Social Worker09/07/22Team MemberRelationshipSpecialtyStart DateEnd Date Shaikh Drake MD [address] [place] [address] PCP - GeneralPrimary Care02/06/[address] [facility] [place] [address] Registered DietitianNutrition08/20/22 John England MD [address] [place] [address] [place] [address] PhysicianHematology/Oncology08/21/22 Natalie Cadena APRN.CONICAL MIXER [address] [facility] [place] [address] Nurse PractitionerHematology/Oncology08/21/22 Rafael Bob RN [address] [facility] [place] [address] Specialty Care CoordinatorHematology/Oncology08/21/22 Yordan Feliz MD [address] [place] [address] [place] [address] PhysicianRadiation Oncology08/21/22 Marsyol Purvis LSW Social Worker09/07/22 Team Status: Active Member Role Status Dates Odell Schmidt DO Primary Care Provider Active Team Status: Inactive Member Role Status Dates Michelle Singh APRN Attending Provider Active Start: January 14, 2024 End: January 13ennis Maryan Schmidt Care ProviderActiveStart: January 14, 2024 End: January 14, 2024Team MemberRelationshipSpecialtyStart DateEnd Date Shaikh Drake MD [facility] [place] [address] PCP - GeneralPrimary Care02/06/[address] [place] [address] [place] [address] Registered DietitianNutrition08/20/22 John England MD [address] [place] [address] [place] [address] PhysicianHematology/Oncology08/21/22 Natalie Cadena APRN.CONICAL MIXER [address] [place] [address] [place] [address] Nurse PractitionerHematology/Oncology08/21/22 Rafael Bob RN [address] [facility] [place] [address] Specialty Care CoordinatorHematology/Oncology08/21/22 Yordan Feliz MD [address] [facility] [place] [address] PhysicianRadiation Oncology08/21/22 Marysol Purvis, INTEGRATION SOFTWARE DEVELOPER Social Worker09/07/22Team MemberRelationshipSpecialtyStart DateEnd Date Mannie Nelson MD [address] [place] [address] PCP - [facility] Medicine Dee Tirado RD [address] [facility] [place] [address] Registered DietitianNutrition08/20/22 John England MD [address] [place] [address] [place], [facility] PhysicianHematology/Oncology08/21/22 Natalie Cadena APRN.CONICAL MIXER [address] [facility] [place] [address] Nurse PractitionerHematology/Oncology08/21/22 Rafael Bob, [place] [address] [facility] [place] [address] Specialty Care CoordinatorHematology/Oncology08/21/22 Yordan Feliz MD [address] [facility] [place] [address] PhysicianRadiation Oncology08/21/22 Marysol Purvis, ISH Social Worker09/07/22Team MemberRelationshipSpecialtyStart DateEnd Date Mannie Nelson MD [address] [place] [facility] [place] [address] PCP - GeneralFamily Medicine Dee Tirado RD [address] [facility] [address] [place], [facility] Registered DietitianNutrition08/20/22 John England MD [address] [facility] [address] [place], [id number] PhysicianHematology/Oncology08/21/22 Natalie Cadena APRN.CONICAL MIXER [address] [facility] [place] [address] Nurse PractitionerHematology/Oncology08/21/22 Rafael Bob, EVNES [address] [facility] [place] [address] Specialty Care CoordinatorHematology/Oncology08/21/22 Yordan Feliz MD [address] [facility] [place], [id number] PhysicianRadiation Oncology08/21/22Team MemberRelationshipSpecialtyStart DateEnd Date Mannie Nelson MD [address] [place] [id number] PCP - GeneralFamily Medicine Dee Tirado RD [address] [facility] [place] [address] Registered DietitianNutrition08/20/22 John England MD [address] [facility] [place] [address] PhysicianHematology/Oncology08/21/22 Natalie Cadena APRN.CONICAL MIXER [address] [facility] [place] [address] Nurse PractitionerHematology/Oncology08/21/22 Rafael Bob, EV[place] [address] [facility] [place] [address] Specialty Care CoordinatorHematology/Oncology08/21/22 Yordan Feliz MD [address] [facility] [place] [address] PhysicianRadiation Oncology08/21/22 Team Status: Inactive Member Role Status Dates Odell Schmidt DO Primary Care Provider Active Start: April 07, 2024 End: April 07Onofre Smallwood ProviderActiveStart: April 07, 2024 End: April 07, 2024Team MemberRelationshipSpecialtyStart DateEnd Date Unallocated, Quiana Thomas MD [address] [place] [address] PCP - GeneralFamily [id number]/7/24Team MemberRelationshipSpecialtyStart DateEnd Date Unallocated, Quiana Thomas MD [address] [place] [address] PCP - GeneralFamily [id number]/7/24Team MemberRelationshipSpecialtyStart DateEnd Date Unallocated, Quiana Thomas MD [address] [place] [address] PCP - GeneralFamily Rzojtpjf93/7/24Team MemberRelationshipSpecialtyStart DateEnd Date Shaikh Drake MD [facility] [place] [address] PCP - GeneralPrimary Care02/06/[address] [facility] [place] [address] Registered DietitianNutrition08/20/22 John England MD [address] [facility] [place] [address] PhysicianHematology/Oncology08/21/22 Natalie Cadena, TRAFFIC OPERATOR.CONICAL MIXER [address] [facility] [place] [address] Nurse PractitionerHematology/Oncology08/21/22 Rafael Bob, [place] [address] [facility] [place] [address] Specialty Care CoordinatorHematology/Oncology08/21/22 Yoradn Feliz MD [address] [facility] [place] [address] PhysicianRadiation Oncology08/21/22 Marysol Purvis LSW Social Worker09/07/22Team MemberRelationshipSpecialtyStart DateEnd Date Unallocated, Quiana Thomas MD [address] [place] [address] PCP - GeneralFamily Rujrlbke59/7/24Team MemberRelationshipSpecialtyStart DateEnd Date Unallocated, Quiana Thomas MD [address] [place] [address] PCP - GeneralFamily [id number]/7/24Team MemberRelationshipSpecialtyStart DateEnd Date Mason Johnson II, MD [address] [facility] [place] [address] [place] [address] PCP - GeneralInternal Bvbtxtrv37/30/[address] [facility] [address] [place], [place] [address] Registered DietitianNutrition08/20/22 John England MD [address] [place] [address] PhysicianHematology/Oncology08/21/22 Natalie Cadena, TRAFFIC OPERATOR.CONICAL MIXER [address] [place] [address] Nurse PractitionerHematology/Oncology08/21/22 Rafael Bob, [place] [address] [place] [address] Specialty Care CoordinatorHematology/Oncology08/21/22 Yordan Feliz MD [address] [facility] [place] [address] PhysicianRadiation Oncology08/21/22 Marysol Purvis LSW Social Worker09/07/22Team MemberRelationshipSpecialtyStart DateEnd Date Mason Johnson II, MD [address] [place] [address] [place] [address] PCP - GeneralInternal Mpupbiuc77/30/[address] [facility] [place] [address] Registered DietitianNutrition08/20/22 John England MD [address] [facility] [place] [address] PhysicianHematology/Oncology08/21/22 Natalie Cadena, TRAFFIC OPERATOR.CONICAL MIXER [address] [place] [address] [place] [address] Nurse PractitionerHematology/Oncology08/21/22 Rafael Bob, [place] [address] [place] [address] [place] [address] Specialty Care CoordinatorHematology/Oncology08/21/22 Yordan Feliz MD [address] [place] [address] [place] [address] PhysicianRadiation Oncology08/21/22 Marysol Purvis LSW Social Worker09/07/22Team MemberRelationshipSpecialtyStart DateEnd Date Unallocated, Noms MD Martha [address] [place] [address] PCP - GeneralFamily Ficyebal78/7/24Team MemberRelationshipSpecialtyStart DateEnd Date Mason Johnson MD [address] [place] [address] PCP - GeneralInternal Emomjmdf95/11/24Team MemberRelationshipSpecialtyStart Date End Date Mason Johnson MD [address] [place] [address] PCP - GeneralInternal Utfjqfbx02/11/24Team MemberRelationshipSpecialtyStart Date End Date Mason Johnson MD [address] [place] [address] PCP - GeneralInternal Aozsvaes69/11/24Team MemberRelationshipSpecialtyStart Date End Date Mason Johnson MD [address] [place] [address] PCP - GeneralInternal Fwacvwev42/11/24Team MemberRelationshipSpecialtyStart Date End Date Shaikh Drake MD [address] [place] [address] PCP - GeneralInternal Medicine11/05/23am MemberRelationshipSpecialtyStart Date End Date Shaikh Drake MD [address] [place] [address] PCP - GeneralInternal Medicine11/05/23am MemberRelationshipSpecialtyStart Date End Date Mason Johnson MD [address] [place] [address] [facility] - GeneralSt[facility] Shhfwspz21/11/24Te MemberRelationshipSpecialtyStart Date End Date Shaikh Drake MD [address] [place] [address] PCP - GeneralSt. [facility] Hospitalnal [facility]11/05/23Team MemberRelationshipSpecialtyStart Date End Date Shaikh Drake MD [address] [place] [address] PCP - GeneralInternal Medicine11/05/23Team MemberRelationshipSpecialtyStart Date End Date Mason Johnson MD [address] [place] [address] PCP - GeneralInternal Xyzddqzg02/11/24Team MemberRelationshipSpecialtyStart Date End Date Mason Johnson MD [address] [place] [address] PCP - GeneralSt. [facility] Hospitalnal Ryhhuwjw62/11/24 Mason Johnson MD [address] [place] [address] PCP - Medical [facility]07/08/2511Te MemberRelationshipSpecialtyStart Date End Date Mason Johnson MD [address] [place] [address] PCP - [facility]05/18/24 Mason Johnson MD [address] [place] [address] PCP - Medical [facility]07/08/2511Te MemberRelationshipSpecialtyStart Date End Date Mason Johnson MD [address] [place] [address] PCP - [facility]05/18/24 Mason Johnson MD [address] [place] [address] PCP - Medical [facility]07/08/2511Te MemberRelationshipSpecialtyStart Date End Date Mason Johnson MD [address] [place] [address] PCP - [facility]05/18/24 Mason Johnson MD [address] [place] [address] PCP - Medical [facility]07/08/2511Team MemberRelationshipSpecialtyStart Date End Date Mason Johnson MD [address] [place] [address] PCP - [facility]05/18/24 Mason Johnson MD [address] [place] [address] PCP - Medical [facility]07/08/2511Team MemberRelationshipSpecialtyStart Date End Date Mason Johnson MD [address] [place] [address] PCP - [facility]05/18/24 Mason Johnson MD [address] [place] [address] [facility] Medical [facility]07/08/2511Team MemberRelationshipSpecialtyStart Date End Date Mason Johnson MD [address] [place] [address] PCP - [facility]05/18/24 Mason Johnson MD [address] [place] [address] [facility] Medical [facility]07/08/2511Team MemberRelationshipSpecialtyStart Date End Date Mason Johnson MD [address] [place] [address] PCP - [facility] [facility] Mason Johnson MD [address] [place] [address] PCP - Medical [place]07/08/2511Team MemberRelationshipSpecialtyStart Date End Date Mason Johnson MD [address] [place] [address] PCP - GeneralInternal Gbdwbskw96/11/24 Mason Johnson MD [address] [place] [address] PCP - Medical [facility]07/08/2511Team MemberRelationshipSpecialtyStart Date End Date Mason Johnson MD [address] [place] [address] [facility] - [facility] Rsdtcakg01/11/24 Mason Johnson MD [address] [place] [address] PCP - Medical [facility]07/08/2511Team MemberRelationshipSpecialtyStart Date End Date Mason Johnson II, MD [address] [facility] [place] [address] [place] [address] PCP - GeneralInternal Naqevlmr23/30/[address] [place] [address] [place] [address] Registered DietitianNutrition08/20/22 John England MD [facility] [place] [address] PhysicianHematology/Oncology08/21/22 Natalie Cadena APRN.CONICAL MIXER [facility] [place] [address] Nurse PractitionerHematology/Oncology08/21/22 Rafael Bob, [place] [address] [facility] [place] [address] Specialty Care CoordinatorHematology/Oncology08/21/22 Yordan Feliz MD [address] [facility] [place] [address] PhysicianRadiation Oncology08/21/22 Marysol Purvis, INTEGRATION SOFTWARE DEVELOPER Social Worker09/07/22Team MemberRelationshipSpecialtyStart DateEnd Date Mason Johnson II, MD [address] [facility] [place] [address] [place] [address] PCP - GeneralInternal Brusygld90/30/[address] [place] [address] [place] [address] Registered DietitianNutrition08/20/22 John England MD [address] [place] [address] [place] [address] PhysicianHematology/Oncology08/21/22 Natalie Cadena APRN.CONICAL MIXER [address] [place] [address] [place] [address] Nurse PractitionerHematology/Oncology08/21/22 Rafael Bob, [place] [address] [facility] [place] [address] Specialty Care CoordinatorHematology/Oncology08/21/22 Yordan Feliz MD [address] [facility] [place] [address] PhysicianRadiation Oncology08/21/22 Marysol Purvis LSW Social Worker09/07/22Team MemberRelationshipSpecialtyStart DateEnd Date Mason Johnson MD [address] [place] [address] [facility] - [facility] Xrxaabwq81/11/24 Mason Johnson MD [address] [place] [address] PCP - Medical [place]07/08/2511Team MemberRelationshipSpecialtyStart Date End Date Mason Johnson MD [address] [place] [address] [facility] - [facility] Mason Johnson MD [address] [place] [address] PCP - Medical [facility]07/08/2511Team MemberRelationshipSpecialtyStart Date End Date Mason Johnson MD [address] [place] [address] P[facility] - [facility]St[facility] Witdxiwm60/11/24 Mason Johnson MD [address] [place] [address] PCP - Medical [place]07/08/2511Team MemberRelationshipSpecialtyStart Date End Date Mason Johnson MD [address] [place] [address] [facility] - [facility]St[facility] Yythdlgg18/11/24 Mason Johnson MD [address] [place] [address] PCP - Medical [place]07/08/2511Team MemberRelationshipSpecialtyStart Date End Date Mason Johnson MD [address] [place] [address] PCP - GeneralInternal Mwaamyhc19/11/24 Mason Johnson MD [address] [place] [address] PCP - Medical [facility]07/08/2511Team MemberRelationshipSpecialtyStart Date End Date Mason Johnson MD [address] [place] [address] [facility] Mason Johnson MD [address] [place] [address] PCP - Medical [facility]07/08/2511Team MemberRelationshipSpecialtyStart Date End Date Mason Johnson MD [address] [place] [address] [facility] - [facility] Yaqitjia69/11/24 Mason Johnson MD [address] [place] [address] PCP - Medical [place]07/08/2511Team MemberRelationshipSpecialtyStart Date End Date Mason Johnson MD [address] [place] [address] [facility]/24 Mason Johnson MD [address] [facility] [address] [place] [address] PCP - Medical [place]07/08/2511Team MemberRelationshipSpecialtyStart Date End Date Mason Johnson MD [address] [facility] [address] [place] [address] PCP - GeneralInternal Luwjtfne71/11/24 Mason Johnson MD [address] [place] [address] PCP - Medical [place]07/08/2511Team MemberRelationshipSpecialtyStart Date End Date Mason Johnson MD [address] [facility] [address] [place] [address] PCP - GeneralInternal Drxmbnbm88/11/24 Mason Johnson MD [address] [facility] [address] [place] [address] PCP - Medical [facility]07/08/2511 Team Status: Inactive Member Role/Relationship Status Dates Mechlele Boyer Jr, DO Attending Provider Active Start: April 29, 2025 End: April 29, 2025Team MemberRelationshipSpecialtyStart DateEnd Date Shaikh Drake MD PCP - GeneralInternal Medicine Shaikh Drake MD PCP - GeneralInternal Medicine11/04/2409 Unallocated, Teresas MD [address] [place] [address] [facility] - [facility] Mason Johnson MD [address] [place] [address] [facility] - [facility] Egbcutnz72/11/24 Mason Johnson MD [address] [place] [address] PCP - Medical [place]07/08/2511Team MemberRelationshipSpecialtyStart Date End Date Unallocated, Quiana Thomas MD [address] [place] [address] PCP - [facility]04/13/2411 Mason Johnson MD [address] [facility] [address] [place] [address] PCP - [facility]05/18/24 Mason Johnson MD [address] [facility] [address] [place] [address] PCP - Medical [facility]07/08/2511Team MemberRelationshipSpecialtyStart Date End Date Unallocated, Quiana Thomas MD [facility] [place] [address] PCP - [facility]04/13/2411 Mason Johnson MD [address] [facility] [address] [place] [address] PCP - [facility]05/18/24 Mason Johnson MD [address] [facility] [address] [place] [address] PCP - Medical [place]07/08/2511 (unrecognized sect ion and content) No Status Records FoundNo Status Records FoundNo Status Records FoundNo Status Records FoundNo Status Records FoundNo Status Records Found INFORMATION SOURCE (unrecogn ized section and content) DATE CREATED AUTHOR 07/31/2022 [facility] DATE CREATED AUTHOR AUTHOR'S ORGANIZ ATION 08/04/2022 [facility] DATE CREATED AUTHOR AUTHOR'S ORGANIZ ATION 03/28/2025 [facility] DATE CREATED AUTHOR AUTHOR'S ORGANIZ ATION 04/30/2025 [facility] DATE CREATED AUTHOR AUTHOR'S ORGANIZ ATION 05/02/2025 [facility] DATE CREATED AUTHOR AUTHOR'S ORGANIZ ATION 05/02/2025 [facility] Source Comments (unrecognize d section and content) In the event this informatio n is protected by the Federal Confidentiality of Alcohol and Drug Abuse Patient Records regulations: The Federal rules restrict any use of the information to criminally investigate or prosecute any alcohol or drug abuse patient.[facility]In the event this information is protected by the Federal Confidentiality of Alcohol and Drug Abuse Patient Records regulations: The Federal rules restrict any use of the information to criminally investigate or prosecute any alcohol or drug abuse patient.[facility] HospitalIn the event this information is protected by the Federal Confidentiality of Alcohol and Drug Abuse Patient Records regulations: The Federal rules restrict any use of the information to criminally investigate or prosecute any alcohol or drug abuse patient.[facility] HospitalIn the event this information is protected by the Federal Confidentiality of Alcohol and Drug Abuse Patient Records regulations: The Federal rules restrict any use of the information to criminally investigate or prosecute any alcohol or drug abuse patient.[facility] HospitalIn the event this information is protected by the Federal Confidentiality of Alcohol and Drug Abuse Patient Records regulations: The Federal rules restrict any use of the information to criminally investigate or prosecute any alcohol or drug abuse patient.[facility] HospitalIn the event this information is protected by the Federal Confidentiality of Alcohol and Drug Abuse Patient Records regulations: The Federal rules restrict any use of the information to criminally investigate or prosecute any alcohol or drug abuse patient.[facility] HospitalIn the event this information is protected by the Federal Confidentiality of Alcohol and Drug Abuse Patient Records regulations: The Federal rules restrict any use of the information to criminally investigate or prosecute any alcohol or drug abuse patient.[facility] HospitalIn the event this information is protected by the Federal Confidentiality of Alcohol and Drug Abuse Patient Records regulations: The Federal rules restrict any use of the information to criminally investigate or prosecute any alcohol or drug abuse patient.[facility] HospitalIn the event this information is protected by the Federal Confidentiality of Alcohol and Drug Abuse Patient Records regulations: The Federal rules restrict any use of the information to criminally investigate or prosecute any alcohol or drug abuse patient.[facility] HospitalIn the event this information is protected by the Federal Confidentiality of Alcohol and Drug Abuse Patient Records regulations: The Federal rules restrict any use of the information to criminally investigate or prosecute any alcohol or drug abuse patient.[facility] HospitalIn the event this information is protected by the Federal Confidentiality of Alcohol and Drug Abuse Patient Records regulations: The Federal rules restrict any use of the information to criminally investigate or prosecute any alcohol or drug abuse patient.[facility] HospitalIn the event this information is protected by the Federal Confidentiality of Alcohol and Drug Abuse Patient Records regulations: The Federal rules restrict any use of the information to criminally investigate or prosecute any alcohol or drug abuse patient.[facility] HospitalIn the event this information is protected by the Federal Confidentiality of Alcohol and Drug Abuse Patient Records regulations: The Federal rules restrict any use of the information to criminally investigate or prosecute any alcohol or drug abuse patient.[facility] HospitalIn the event this information is protected by the Federal Confidentiality of Alcohol and Drug Abuse Patient Records regulations: The Federal rules restrict any use of the information to criminally investigate or prosecute any alcohol or drug abuse patient.[facility] HospitalIn the event this information is protected by the Federal Confidentiality of Alcohol and Drug Abuse Patient Records regulations: The Federal rules restrict any use of the information to criminally investigate or prosecute any alcohol or drug abuse patient.[facility] HospitalIn the event this information is protected by the Federal Confidentiality of Alcohol and Drug Abuse Patient Records regulations: The Federal rules restrict any use of the information to criminally investigate or prosecute any alcohol or drug abuse patient.[facility] HospitalIn the event this information is protected by the Federal Confidentiality of Alcohol and Drug Abuse Patient Records regulations: The Federal rules restrict any use of the information to criminally investigate or prosecute any alcohol or drug abuse patient.[facility] HospitalIn the event this information is protected by the Federal Confidentiality of Alcohol and Drug Abuse Patient Records regulations: The Federal rules restrict any use of the information to criminally investigate or prosecute any alcohol or drug abuse patient.[facility] HospitalIn the event this information is protected by the Federal Confidentiality of Alcohol and Drug Abuse Patient Records regulations: The Federal rules restrict any use of the information to criminally investigate or prosecute any alcohol or drug abuse patient.[facility] HospitalIn the event this information is protected by the Federal Confidentiality of Alcohol and Drug Abuse Patient Records regulations: The Federal rules restrict any use of the information to criminally investigate or prosecute any alcohol or drug abuse patient.[facility] HospitalIn the event this information is protected by the Federal Confidentiality of Alcohol and Drug Abuse Patient Records regulations: The Federal rules restrict any use of the information to criminally investigate or prosecute any alcohol or drug abuse patient.[facility] HospitalIn the event this information is protected by the Federal Confidentiality of Alcohol and Drug Abuse Patient Records regulations: The Federal rules restrict any use of the information to criminally investigate or prosecute any alcohol or drug abuse patient.[facility] HospitalIn the event this information is protected by the Federal Confidentiality of Alcohol and Drug Abuse Patient Records regulations: The Federal rules restrict any use of the information to criminally investigate or prosecute any alcohol or drug abuse patient.[facility] HospitalIn the event this information is protected by the Federal Confidentiality of Alcohol and Drug Abuse Patient Records regulations: The Federal rules restrict any use of the information to criminally investigate or prosecute any alcohol or drug abuse patient.[facility] HospitalIn the event this information is protected by the Federal Confidentiality of Alcohol and Drug Abuse Patient Records regulations: The Federal rules restrict any use of the information to criminally investigate or prosecute any alcohol or drug abuse patient.[facility] HospitalIn the event this information is protected by the Federal Confidentiality of Alcohol and Drug Abuse Patient Records regulations: The Federal rules restrict any use of the information to criminally investigate or prosecute any alcohol or drug abuse patient.[facility] HospitalIn the event this information is protected by the Federal Confidentiality of Alcohol and Drug Abuse Patient Records regulations: The Federal rules restrict any use of the information to criminally investigate or prosecute any alcohol or drug abuse patient.[facility] HospitalIn the event this information is protected by the Federal Confidentiality of Alcohol and Drug Abuse Patient Records regulations: The Federal rules restrict any use of the information to criminally investigate or prosecute any alcohol or drug abuse patient.[facility] HospitalIn the event this information is protected by the Federal Confidentiality of Alcohol and Drug Abuse Patient Records regulations: The Federal rules restrict any use of the information to criminally investigate or prosecute any alcohol or drug abuse patient.[facility] HospitalIn the event this information is protected by the Federal Confidentiality of Alcohol and Drug Abuse Patient Records regulations: The Federal rules restrict any use of the information to criminally investigate or prosecute any alcohol or drug abuse patient.[facility] HospitalIn the event this information is protected by the Federal Confidentiality of Alcohol and Drug Abuse Patient Records regulations: The Federal rules restrict any use of the information to criminally investigate or prosecute any alcohol or drug abuse patient.[facility] HospitalIn the event this information is protected by the Federal Confidentiality of Alcohol and Drug Abuse Patient Records regulations: The Federal rules restrict any use of the information to criminally investigate or prosecute any alcohol or drug abuse patient.[facility] HospitalIn the event this information is protected by the Federal Confidentiality of Alcohol and Drug Abuse Patient Records regulations: The Federal rules restrict any use of the information to criminally investigate or prosecute any alcohol or drug abuse patient.[facility] HospitalIn the event this information is protected by the Federal Confidentiality of Alcohol and Drug Abuse Patient Records regulations: The Federal rules restrict any use of the information to criminally investigate or prosecute any alcohol or drug abuse patient.[facility] HospitalIn the event this information is protected by the Federal Confidentiality of Alcohol and Drug Abuse Patient Records regulations: The Federal rules restrict any use of the information to criminally investigate or prosecute any alcohol or drug abuse patient.[facility] HospitalIn the event this information is protected by the Federal Confidentiality of Alcohol and Drug Abuse Patient Records regulations: The Federal rules restrict any use of the information to criminally investigate or prosecute any alcohol or drug abuse patient.[facility] HospitalIn the event this information is protected by the Federal Confidentiality of Alcohol and Drug Abuse Patient Records regulations: The Federal rules restrict any use of the information to criminally investigate or prosecute any alcohol or drug abuse patient.[facility] HospitalIn the event this information is protected by the Federal Confidentiality of Alcohol and Drug Abuse Patient Records regulations: The Federal rules restrict any use of the information to criminally investigate or prosecute any alcohol or drug abuse patient.[facility] HospitalIn the event this information is protected by the Federal Confidentiality of Alcohol and Drug Abuse Patient Records regulations: The Federal rules restrict any use of the information to criminally investigate or prosecute any alcohol or drug abuse patient.[facility] HospitalIn the event this information is protected by the Federal Confidentiality of Alcohol and Drug Abuse Patient Records regulations: The Federal rules restrict any use of the information to criminally investigate or prosecute any alcohol or drug abuse patient.[facility] HospitalIn the event this information is protected by the Federal Confidentiality of Alcohol and Drug Abuse Patient Records regulations: The Federal rules restrict any use of the information to criminally investigate or prosecute any alcohol or drug abuse patient.[facility] HospitalIn the event this information is protected by the Federal Confidentiality of Alcohol and Drug Abuse Patient Records regulations: The Federal rules restrict any use of the information to criminally investigate or prosecute any alcohol or drug abuse patient.[facility] HospitalIn the event this information is protected by the Federal Confidentiality of Alcohol and Drug Abuse Patient Records regulations: The Federal rules restrict any use of the information to criminally investigate or prosecute any alcohol or drug abuse patient.[facility] HospitalIn the event this information is protected by the Federal Confidentiality of Alcohol and Drug Abuse Patient Records regulations: The Federal rules restrict any use of the information to criminally investigate or prosecute any alcohol or drug abuse patient.[facility] HospitalIn the event this information is protected by the Federal Confidentiality of Alcohol and Drug Abuse Patient Records regulations: The Federal rules restrict any use of the information to criminally investigate or prosecute any alcohol or drug abuse patient.[facility] HospitalIn the event this information is protected by the Federal Confidentiality of Alcohol and Drug Abuse Patient Records regulations: The Federal rules restrict any use of the information to criminally investigate or prosecute any alcohol or drug abuse patient.[facility] HospitalIn the event this information is protected by the Federal Confidentiality of Alcohol and Drug Abuse Patient Records regulations: The Federal rules restrict any use of the information to criminally investigate or prosecute any alcohol or drug abuse patient.[facility] HospitalIn the event this information is protected by the Federal Confidentiality of Alcohol and Drug Abuse Patient Records regulations: The Federal rules restrict any use of the information to criminally investigate or prosecute any alcohol or drug abuse patient.[facility] HospitalIn the event this information is protected by the Federal Confidentiality of Alcohol and Drug Abuse Patient Records regulations: The Federal rules restrict any use of the information to criminally investigate or prosecute any alcohol or drug abuse patient.[facility] HospitalIn the event this information is protected by the Federal Confidentiality of Alcohol and Drug Abuse Patient Records regulations: The Federal rules restrict any use of the information to criminally investigate or prosecute any alcohol or drug abuse patient.[facility] HospitalIn the event this information is protected by the Federal Confidentiality of Alcohol and Drug Abuse Patient Records regulations: The Federal rules restrict any use of the information to criminally investigate or prosecute any alcohol or drug abuse patient.[facility] HospitalIn the event this information is protected by the Federal Confidentiality of Alcohol and Drug Abuse Patient Records regulations: The Federal rules restrict any use of the information to criminally investigate or prosecute any alcohol or drug abuse patient.[facility] HospitalIn the event this information is protected by the Federal Confidentiality of Alcohol and Drug Abuse Patient Records regulations: The Federal rules restrict any use of the information to criminally investigate or prosecute any alcohol or drug abuse patient.[facility] HospitalIn the event this information is protected by the Federal Confidentiality of Alcohol and Drug Abuse Patient Records regulations: The Federal rules restrict any use of the information to criminally investigate or prosecute any alcohol or drug abuse patient.[facility] HospitalIn the event this information is protected by the Federal Confidentiality of Alcohol and Drug Abuse Patient Records regulations: The Federal rules restrict any use of the information to criminally investigate or prosecute any alcohol or drug abuse patient.[facility] HospitalIn the event this information is protected by the Federal Confidentiality of Alcohol and Drug Abuse Patient Records regulations: The Federal rules restrict any use of the information to criminally investigate or prosecute any alcohol or drug abuse patient.[facility] HospitalIn the event this information is protected by the Federal Confidentiality of Alcohol and Drug Abuse Patient Records regulations: The Federal rules restrict any use of the information to criminally investigate or prosecute any alcohol or drug abuse patient.[facility] HospitalIn the event this information is protected by the Federal Confidentiality of Alcohol and Drug Abuse Patient Records regulations: The Federal rules restrict any use of the information to criminally investigate or prosecute any alcohol or drug abuse patient.[facility] HospitalIn the event this information is protected by the Federal Confidentiality of Alcohol and Drug Abuse Patient Records regulations: The Federal rules restrict any use of the information to criminally investigate or prosecute any alcohol or drug abuse patient.[facility] HospitalIn the event this information is protected by the Federal Confidentiality of Alcohol and Drug Abuse Patient Records regulations: The Federal rules restrict any use of the information to criminally investigate or prosecute any alcohol or drug abuse patient.[facility] HospitalIn the event this information is protected by the Federal Confidentiality of Alcohol and Drug Abuse Patient Records regulations: The Federal rules restrict any use of the information to criminally investigate or prosecute any alcohol or drug abuse patient.[facility] HospitalIn the event this information is protected by the Federal Confidentiality of Alcohol and Drug Abuse Patient Records regulations: The Federal rules restrict any use of the information to criminally investigate or prosecute any alcohol or drug abuse patient.[facility] HospitalIn the event this information is protected by the Federal Confidentiality of Alcohol and Drug Abuse Patient Records regulations: The Federal rules restrict any use of the information to criminally investigate or prosecute any alcohol or drug abuse patient.[facility] Reason for Visit (unrecogniz ed section and content) ReasonCommentsSuspicious Skin LesionSpecialtyDiagnoses / ProceduresReferred By ContactReferred To ContactDermatology Diagnoses Actinic keratosis Procedures [place] OFFICE/OUTPATIENT NEW HIGH MDM 60 MINUTES Mason Johnson MD [address] [facility] [address] [place] [address] Phone: tel: fax: Barry Stevens, TRAFFIC OPERATOR-CONICAL MIXER [address] [place] [address] Phone: tel: fax: Referral IDStatusReasonStart DateExpiration DateVisits RequestedVisits [id number] Specialty Services Required /[id number] CTSpecialtyDiagnoses / Procedures Referred By ContactReferred To ContactMOLECULAR & FUNCTIONAL IMAGING Diagnoses Tongue cancer (HCC) Head and neck cancer (HCC) Procedures NM PET/CT SKULL-THIGH INITIAL PET IMAGING CT ATTENUATION SKULL BASE MID-THIGH Yordan Feliz MD [address] [place] [address] [place] [address] Molecular & Functional Imaging [address] [place] [address] Referral IDStatusReasonChico DateExpiration DateVisits RequestedVisits [id number] Auto-Generated Referral [id number] EducationReasonCommentsConsultSpecialty Diagnoses / ProceduresReferred By ContactReferred To ContactRadiation Oncology / RADIATION ONCOLOGY Diagnoses Dr. 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 Images requested. Procedures NEW PATIENT RAD ONC Lana Serene Jessica [address] [place] [id number] Yordan Feliz MD [address] [place] [address] [place] [address] Referral IDStatusReasonStcromwell DateExpiration DateVisits RequestedVisits [id number] Request Financial Clearance Required - [employer] Payor [id number] TelephoneReasonCommentsCare CoordinationTreatment PlanningReasonCommentsDental Clearance - Radiation Therapy ReasonOnset DateCommentsSimulation Request Form08/23/2022ReasonCommentsCare CoordinationPt QuestionsReasonCommentsCare CoordinationPET ResultsReasonComments tongue cancerReasonCommentsRadiotherapy On-treatment VisitSpecialtyDiagnoses / ProceduresReferred By ContactReferred To Contact Diagnoses 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) John England MD [address] [facility] [place] [address] Sebastien Treat Jose [address] [place] [address] Referral IDStatusReasonChico DateExpiration DateVisits RequestedVisits [id number]/14/20235/[id number] KqvawayedaazK5L3 Post Treatment CallReasonCommentsSocial Work ServicesReason CommentsNutrition AssessmentReasonCommentscancer [...] 90 DAY RAD TX Yordan Feliz MD [address] [place] [address] [place] [address] Yordan Feliz MD [address] [place] [address] [place] [address] Referral IDStatusLadonnaTaylor [facility] DateExpiration DateVisits RequestedVisits [id number]/23/202312/[id number] of the base of tongueReasonCommentsHead and Neck CancerReasonCommentsCancer of the base of tongue1 month follow upReasonCommentsCare CoordinationResultsReasonComments 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)ReasonCommentsRadiology CTSpecialtyDiagnoses / ProceduresReferred By ContactReferred To ContactCT IMAGING Diagnoses Lung nodules 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) Procedures CT CHEST W IVCON DIAGNOSTIC COMPUTED TOMOGRAPHY THORAX W/CONTRAST John England MD [address] [place] [address] [address] [place] [phone] [facility] [place] [address] Referral IDStatusReasonStart DateExpiration DateVisits RequestedVisits [id number] Auto-Generated Referral /[id number] / ProceduresReferred By ContactReferred To ContactCT IMAGING Diagnoses 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) Mass of right lung Procedures CT CHEST W IVCON DIAGNOSTIC COMPUTED TOMOGRAPHY THORAX W/CONTRAST John England MD [address] [place] [address] [address] [place] [phone] [facility] [place] [address] Referral IDStatusReasonStart DateExpiration DateVisits RequestedVisits [id number] Auto-Generated Referral [id number] / ProceduresReferred By ContactReferred To ContactCT IMAGING Diagnoses Lung nodules Procedures CT CHEST W IVCON DIAGNOSTIC COMPUTED TOMOGRAPHY THORAX W/CONTRAST John England MD [address] [place] [address] [address] [place], [facility] [facility] [place] [address] Referral IDStatusReasonStart DateExpiration DateVisits RequestedVisits [id number] Auto-Generated Referral /[id number] NMSpecialtyDiagnoses / Procedures Referred By ContactReferred To ContactMOLECULAR & FUNCTIONAL IMAGING Diagnoses 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) Procedures NM PET/CT SKULL-THIGH SUBSEQUENT PET IMAGING CT ATTENUATION SKULL BASE MID-THIGH Yordan Feliz MD [address] [place] [address] [place] [address] Molecular & Functional Imaging [address] [place] [address] Referral IDStatusReasonStart DateExpiration DateVisits RequestedVisits [id number] Auto-Generated Referral /[id number] month check base of tongue.Specialty Diagnoses / ProceduresReferred By ContactReferred To ContactCT IMAGING Diagnoses 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 Procedures CT CHEST W IVCON DIAGNOSTIC COMPUTED TOMOGRAPHY THORAX W/CONTRAST John England MD [address] [place] [address] [place] [address] [place] [address] Referral IDStatusReasonStart DateExpiration DateVisits RequestedVisits [id number] Auto-Generated Referral [id number] CarePrevious pcp dr Rodriguez oncology twice yearly [...] month checkReasonCommentsHip PainResultsLeft hip mriURIReasonOnset DateComments hip THA04/19/20254779QeumzrRfvjgozdAqevbr8 mo checkReasonCommentsFollow-upSpecialty Diagnoses / ProceduresReferred By ContactReferred To ContactOrthopaedic Surgery Diagnoses Pseudogout involving multiple joints Primary osteoarthritis of left hip Mason Johnson MD [address] [place] [address] Phone: tel: fax: Jr. Mechelle Boyer, [address] [place] [address] Phone: tel: fax: Referral IDStatusReasonStart DateExpiration DateVisits RequestedVisits [id number] Specialty Services Required [id number] presurgical instructions for ASA surgical clearance Goals (unrecognized section and content) Goals may [...] BE BASED ON THE PRIMARY CLINICAL RECORDS. [employer] provides no warranty or guarantee of the accuracy or completeness of information in this document.
--- NOTE | 2025-05-07 10:00 | PC.NURSE ---
Pt was scheduled for a Lexiscan test. Upon initial EKG pt had A flutter. I spoke with Dr. Perkins in the ER as well as Dr. Christianson to verify results and they both confirmed that it is A Flutter. Pt has no hx of this. I spoke with Dr. Johnson and let him know as he was the ordering Dr and he wanted pt sent to the ER for further evaluation for new onset A flutter as pt is not on any blood thinners other then baby aspirin. Pt agreeable and sent to the ER. Pt was having stress test for pre op clearance. Surgery is not scheduled until after the first of the year. We did not perfor. stress test but pt did have resting images completed already.
== END 2025-05-07 08:41 | disposition home or self-care (01) ==
LOC: NM 08:40
PROVIDERS: PCP Internal Medicine; Visit Provider Internal Medicine
DX: I25.10 Atherosclerotic heart disease of native coronary artery without angina pectoris (principal); Z95.5 Presence of coronary angioplasty implant and graft
CPT/HCPCS: 78452; A9500

== ENCOUNTER 2025-05-07 09:51 | Emergency (ER) | payer MEDICARE, SELFPAY ==
--- OUTSIDE RECORDS SUMMARY | 2025-04-29 09:12 | XMS_ITS | Encounter Summary ---
Author Organization [facility] Address [address] [place], [place] [address] Care Team Providers Care Tonsorial Artist Name Role Phone Dee Tirado KARLOS Unavailable [phone] John Valladares MD Unavailable [phone] Natalie Cadena APRN.PRINCIPAL ADMINISTRATIVE CLERK Unavailable [phone] Yordan Randolph MD Unavailable [phone] Marysol Purvis DESTINATION IMAGINATION COORDINATOR Unavailable Unavailable Alex OLIVAS MD, Mason Regan Primary Care Provider [phone] Source Comments In the event this information is protected by the Federal Confidentiality of Alcohol and Drug AbusePatient Records regulations: The Federal rules restrict any use of the information to criminally investigate or prosecute any alcohol or drug abuse patient.[facility] Reason for Referral * MRI/CT (Routine) - ClosedSpecialtyDiagnoses / ProceduresReferred By Contact Referred To ContactCT IMAGING Diagnoses 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 Stage 3 chronic kidney disease, unspecified whether stage 3a or 3b CKD (HCC) Procedures CT CHEST W IVCON DIAGNOSTIC COMPUTED TOMOGRAPHY THORAX W/CONTRAST John Valladares MD [address] [place] [address] [place] [address] Phone: tel: fax: [place] [address] Referral IDStatusReasonStart DateExpiration DateVisits RequestedVisits [id number] Auto-Generated Referral * MRI/CT (Routine) - ClosedSpecialtyDiagnoses / ProceduresReferred By Contact Referred To ContactCT IMAGING Diagnoses 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 Stage 3 chronic kidney disease, unspecified whether stage 3a or 3b CKD (HCC) Procedures CT NECK SOFT TISSUE W IVCON CT SOFT TISSUE NECK W/CONTRAST MATERIAL John Valladares MD [address] [place] [address] Phone: tel: fax: [place] [address] Referral IDStatusReasonStart DateExpiration DateVisits RequestedVisits [id number] Auto-Generated Referral Reason for Visit * ReasonCommentsRadiology CT * MRI/CT (Routine) - ClosedSpecialtyDiagnoses / ProceduresReferred By Contact Referred To ContactCT IMAGING Diagnoses 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 Stage 3 chronic kidney disease, unspecified whether stage 3a or 3b CKD (HCC) Procedures CT NECK SOFT TISSUE W IVCON CT SOFT TISSUE NECK W/CONTRAST MATERIAL John Valladares MD [address] [place] [address] Phone: tel: fax: [place] [address] Referral IDStatusReasonStart DateExpiration DateVisits RequestedVisits [id number] Auto-Generated Referral Encounter Details DateTypeDepartmentCare Team (Latest Contact Info)Ihrpjdswqbw31/23/2025 9:12 AM EDT - 04/29/2025 11:59 PM EDTHospital Encounter Radiology Pet CT [address] [place] [address] 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/. Last address used for [address] [place] [address]/07/2022Sex and Gender InformationValueDate Recorded Sex Assigned at BirthNot on fileLegal DcfLqsm04/02/2012 10:15 AM ESTGender IdentityNot on fileSexual OrientationNot on filedocumented as of this encounter Functional Status * Are you deaf or do you have serious difficulty hearing?AnswerDate of JtjdxtovjgEdfslvQd60/23/2014 11:20 AM Jasmyn Anthony * Are you blind or do you have serious difficulty seeing, even when wearing glasses?AnswerDate of JqboxfaqodGywhvmPf83/23/2014 11:20 AM Jasmyn Anthony * Do you have serious difficulty walking or climbing stairs?AnswerDate of XmxztsvfxoPhyealTr41/23/2014 11:20 AM Jasmyn Anthony * Do you have difficulty dressing or bathing?AnswerDate of AssessmentAuthorNo 04/29/2014 11:20 AM Jasmyn Anthony * Because of a physical, mental, or emotional condition, do you have difficulty doing errands alone such as visiting a doctor's office or shopping?AnswerDate of SlbsbmivknFkxibpUm02/23/2014 11:20 AM Jasmyn Anthony documented as of this encounter Mental Status * Because of a physical, mental, or emotional condition, do you have serious difficulty concentrating, remembering, or making decisions?AnswerEntry Date KpafboCf43/23/2014 11:20 AM Jasmyn Anthony documented in this encounter Medications at Time of Discharge MedicationSigDispense QuantityRefillsLast FilledStart DateEnd Date tiZANidine (ZANAFLEX) 4 mg tablet Take 4 mg by mouth.04/21/2025 traMADol (ULTRAM) 50 mg tablet Take 50 mg by mouth as needed.03/26/2025 iv contrast (will be provided with radiology test) Indications: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 Discontinue saline lock post exam. If Pt. has a central line or IVAD, may access for administration according to line specific nursing protocol. Once exam is complete flush line and de-access according to line specific nursing protocol in theCT contrast administration guidelines link. 1 each 11/04/2024 cholecalciferol, Vitamin D3, (VITAMIN D3) 1,250 mcg (50,000 unit) cap capsule Take 1 capsule by mouth one time a week.10/01/2023 latanoprost (XALATAN) 0.005 % ophthalmic solution instill 1 (ONE) DROP IN BOTH EYES AT VSDTZLE5905/01/2023 ergocalciferol 50,000 unit capsule (VITAMIN D2, DRISDOL) TAKE 1 CAPSULE BY MOUTH KYBIHJ0607/05/2022 metFORMIN (GLUCOPHAGE) 500 mg tablet Take 500 mg by mouth once daily.06/12/2022 metoprolol succinate ER (TOPROL XL) 25 mg 24 hr tablet Take 25 mg by mouth once daily.06/12/2022 fenofibrate (LOFIBRA) 134 mg capsule Take 134 mg by mouth once daily.03/02/2016 Aspirin 81 mg tab 81 mg every other day.documented as of this encounter Progress Notes * Cecilia Zurita, [...] PATIENT PRESENTS WITH AN IMPLANTABLE OR ATTACHED LANDING WORKER: No RADIOLOGY DEPARTMENT: CT; Exam(s) Completed: Chest [...] Plan of Treatment DateTypeDepartmentCare Team (Latest Contact Info)Trphdfxaxfi40/22/2026 8:15 AM EDTAppointment Radiology Pet CT [address] [place] [address] [place] [address] CT Chest and neck with khysuthc74/29/2026 10:00 AM EDTOffice Visit Radiation Oncology [address] [place] [address] [place] [address] Yordan Randolph MD [address] [place] [address] [place] [address] 1 year follow up05/05/2026 10:40 AM EDTVisit (SP) Office Hematology/Oncology [address] [place] [address] [place] [address] John Valladares MD [address] [place] [address] [place] [address] 1 year follow up for lab and ct scan resultsdocumented as of this encounter Procedures Procedure NamePriorityDate/TimeAssociated DiagnosisCommentsCT CHEST W IVCON Tlrxcvt2404/29/2025 10:27 AM EDT 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 Stage 3 chronic kidney disease, unspecified whether stage 3a or 3b CKD (HCC) CT NECK SOFT TISSUE W NRYECWhcsdrr23/23/2025 10:27 AM EDT 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 Stage 3 chronic kidney disease, unspecified whether stage 3a or 3b CKD (HCC) TSH YCNKowdiot91/23/2025 9:13 AM EDT Other specified disorders of thyroid COMPREHENSIVE METABOLIC NIFJPBjkzmyq76/23/2025 9:13 AM EDT 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 ??Stable CT of the chest. ??No findings to suggest new intrathoracic metastatic disease. 2. ??No evidence of bulky intrathoracic lymphadenopathy. Transcribe Date/Time: Apr 29 2025 ??1:48P Dictated by: CORINA PITTMAN MD This examination was interpreted and the report reviewed and electronically signed by: CORINA PITTMAN MD on Apr 29 2025 ??2:05PM ??EST Thank you for allowing us to participate in the care of your patient. Should there be any questions regarding this interpretation, please call [phone]. If you are unable to reach us at the number above, please feel free to contact [facility] at [phone]. Narrative 04/29/2025 2:07 PM EDT * * *Final Report* * * DATE OF EXAM: Apr 29 2025 10:27AM ?? NRC ?? 0539 ??- ??CT CHEST W IVCON ??/ PROCEDURE REASON: multiple diagnoses ? * * * * Physician Interpretation * * * * RESULT: EXAMINATION: ??CHEST CT WITH CONTRAST CLINICAL HISTORY: Cancer at the base of the tongue. Technique: ??Spiral CT acquisition of the chest from the thoracic inlet to the upper abdomen following IV contrast. MQ: ??CTCW_6 Contrast: ??100 mL Omnipaque [address] Radiation dose: Integrated Dose-length product (DLP) for this visit = ?? 875 mGy*cm CT Dose Reduction Employed: Automated exposure control(AEC) and iterative recon Comparison: CT chest performed 10/28/2024 RESULT: Limitations: ??None. Lines, tubes, and devices: ??None. Lung parenchyma and airways: There is basal atelectasis. ??No lobar consolidation is seen. ??There is a stable 3 mm nodular opacity along the right major fissure (4:96), likely representing an intrafissural lymph node. ??The central airways are widely patent. Pleural space: ??No pleural effusion. ??No pleural thickening. Lower neck, lymph nodes, and mediastinum: ??The imaged thyroid gland is normal. ??No lymphadenopathy in the supraclavicular, axillary, mediastinal, or hilar regions. Heart, pericardium, and thoracic vessels: ??The thoracic aorta and main pulmonary artery are normal in caliber. The cardiac chambers are normal in size. ??Coronary atherosclerotic calcification is noted. No pericardial effusion or thickening. Bones and soft tissues: ??Degenerative changes are seen in the thoracic spine. ??Superficial soft tissues are unremarkable. Upper abdomen: ??The liver is diffusely decreased in attenuation, compatible with hepatic steatosis. ??The upper abdomen is otherwise unremarkable. Localizer images: No additional findings. Procedure Note Provider, [facility] - 04/29/2025 * * *Final Report* * * DATE OF EXAM: Apr 29 2025 10:27AM [facility] 0539 - CT CHEST W IVCON / PROCEDURE REASON: multiple diagnoses * * * * Physician Interpretation * * * * RESULT: EXAMINATION: CHEST CT WITH CONTRAST CLINICAL HISTORY: Cancer at the base of the tongue. Technique: Spiral CT acquisition of the chest from the thoracic inlet to the upper abdomen following IV contrast. MQ: CTCW_6 Contrast: 100 mL Omnipaque [address] Radiation dose: Integrated Dose-length product (DLP) for this visit = 875 mGy*cm CT Dose Reduction Employed: Automated exposure control(AEC) and iterative recon Comparison: CT chest performed 10/28/2024 RESULT: Limitations: None. Lines, tubes, and devices: None. Lung parenchyma and airways: There is basal atelectasis. No lobar consolidation is seen. There is a stable 3 mm nodular opacity along the right major fissure (4:96), likely representing an intrafissural lymph node. The central airways are widely patent. Pleural space: No pleural effusion. No pleural thickening. Lower neck, lymph nodes, and mediastinum: The imaged thyroid gland is normal. No lymphadenopathy in the supraclavicular, axillary, mediastinal, or hilar regions. Heart, pericardium, and thoracic vessels: The thoracic aorta and main pulmonary artery are normal in caliber. The cardiac chambers are normal in size. Coronary atherosclerotic calcification is noted. No pericardial effusion or thickening. Bones and soft tissues: Degenerative changes are seen in the thoracic spine. Superficial soft tissues are unremarkable. Upper abdomen: The liver is diffusely decreased in attenuation, compatible with hepatic steatosis. The upper abdomen is otherwise unremarkable. Localizer images: No additional findings. IMPRESSION IMPRESSION: 1. Stable CT of the chest. No findings to suggest new intrathoracic metastatic disease. 2. No evidence of bulky intrathoracic lymphadenopathy. Transcribe Date/Time: Apr 29 2025 1:48P Dictated by: CORINA PITTMAN MD This examination was interpreted and the report reviewed and electronically signed by: CORINA PITTMAN MD on Apr 29 2025 2:05PM EST Thank you for allowing us to participate in the care of your patient. Should there be any questions regarding this interpretation, please call [phone]. If you are unable to reach us at the number above, please feel free to contact [facility] at [phone]. Authorizing ProviderResult TypeResult StatusVivek Abhyankar MDCT-PAMAFinal Result * CT NECK SOFT TISSUE W IVCON [...] any questions regarding this interpretation, please call [phone]. If you are unable to reach us at the number above, please feel free to contact [facility] at [phone]. Narrative 04/29/2025 11:23 AM EDT * * *Final Report* * * DATE OF EXAM: Apr 29 2025 10:27AM ?? NRC ?? 0013 ??- ??CT NECK SOFT TISSUE [...] accession. Other: Not applicable. Procedure Note Provider, [facility] - 04/29/2025 * * *Final Report* * * DATE OF EXAM: Apr 29 2025 10:27AM [facility] 0013 - CT NECK SOFT TISSUE [...] any questions regarding this interpretation, please call [phone]. If you are unable to reach us at the number above, please feel free to contact [facility] at [phone]. Authorizing ProviderResult TypeResult StatusVivek Abhyankar MDCT-PAMAFinal Result * THYROID STIMULATING HORMONE (04/29/2025 9:13 AM EDT)ComponentValueRef Range Test MethodAnalysis TimePerformed AtPathologist SignatureTSH2.7600.270 - 4.200 mIU/L1 9:33 PM EDTCBLANCHARD VALLEY [facility] MA[facility] LABSpecimen (Source) Anatomical Location / LateralityCollection Method / VolumeCollection Time Received TimeBloodBLOOD SPECIMEN / UnknownVenipuncture / Pmkzhcl8404/29/2025 9:13 AM EDT1 9:22 AM EDT Narrative Authorizing ProviderResult TypeResult StatusG Jeyson Randolph MDLABORATORYFinal ResultPerforming OrganizationAddressCity/State/ZIP CodePhone Number [facility] [address] [place] [address], * (ABNORMAL) COMPLETE BLOOD COUNT AND DIFFERENTIAL (04/29/2025 9:13 AM EDT) ComponentValueRef RangeTest MethodAnalysis TimePerformed AtPathologist SignatureWBC5.883.70 - 11.00 k/uL04/29/2025 9:25 AM EDTNOTHOMAS [facility] LABRBC4.504.20 - 6.00 m/uL04/29/2025 9:25 AM EDFA[facility] PRQSfoyjmavzk26.213.0 - 17.0 g/dL04/29/2025 9:25 AM EDT [facility] ONOYhinsvzbcc53.339.0 - 51.0 %04/29/2025 9:25 AM EDTNOTHOMAS [facility]IAL [facility] RBYRKP74.680.0 - 100.0 fL 04/29/2025 9:25 AM EDTGRA[facility] VAVVXN15.326.0 - 34.0 pg04/29/2025 9:25 AM EDTG[facility] DVIHYVP84.830.5 - 36.0 g/dL04/29/2025 9:25 AM EDTNORTHOLLAND [facility] LABRDW-CV14.5 11.5 - 15.0 %04/29/2025 9:25 AM EDTGRAFT[facility] LAB Platelet Axalm151355 - 400 k/uL04/29/2025 9:25 AM EDTGRAFT[facility] LABMPV9.89.0 - 12.7 fL04/29/2025 9:25 AM EDFA[facility] LABNeutrophils %79.1%04/29/2025 9:25 AM EDFA[facility] LABAbs Neut4.661.45 - 7.50 k/uL04/29/2025 9:25 AM [facility] LABLymphocytes %9.9%04/29/2025 9:25 AM [facility] LABAbs Lymph0.58(L)1.00 - 4.00 k/uL04/29/2025 9:25 AM [facility] LABMonocytes %7.8%04/29/2025 9:25 AM EDT [facility] LABAbs Mono0.46<0.87 k/uL04/29/2025 9:25 AM [facility] LABEosinophils %1.4%04/29/2025 9:25 AM [facility] LABAbs Eosin0.08<0.46 k/uL04/29/2025 9:25 AM [facility] LABBasophils %0.9%04/29/2025 9:25 AM [facility] LABAbs Baso0.05<0.11 k/uL04/29/2025 9:25 AM [facility] LABImmature Granulocytes %0.9% 04/29/2025 9:25 AM [facility] LABAbs Immature Gran 0.05<0.10 k/uL04/29/2025 9:25 AM [facility] LABNRBC 0.0/100 WBC04/29/2025 9:25 AM [facility] LABAbsolute nRBC<0.01<0.01 k/uL04/29/2025 9:25 AM [facility] LABDiff JruoEyrh48/23/2025 9:25 AM EDTNORTHCOAST [facility] LAB Specimen (Source)Anatomical Location / LateralityCollection Method / Volume Collection TimeReceived TimeBloodBLOOD SPECIMEN / UnknownVenipuncture / Enefwxn2604/29/2025 9:13 AM EDT1 9:22 AM EDT Narrative Authorizing ProviderResult TypeResult StatusJohn Valladares MDLABORATORYFinal ResultPerforming OrganizationAddressCity/State/ZIP CodePhone Number [facility] [address] [place] [address] * (ABNORMAL) COMPREHENSIVE METABOLIC PANEL (04/29/2025 9:13 AM EDT)Component ValueRef RangeTest MethodAnalysis TimePerformed AtPathologist Signature Protein, Total7.16.3 - 8.0 g/dL04/29/2025 9:56 AM EDFA[facility] LABAlbumin4.23.9 - 4.9 g/dL04/29/2025 9:56 AM [facility] LABCalcium, Total10.28.5 - 10.2 mg/dL04/29/2025 9:56 AM EDTGRAFTON CITY [facility] LABBilirubin, Total0.50.2 - 1.3 mg/dL 04/29/2025 9:56 AM [facility] LABAlkaline Yrxwyxcsbed6376 - 113 U/L1 9:56 AM [facility] AFBNOL9513 - 40 U/L1 9:56 AM EDFAIR[facility] RMEYEH2320 - 54 U/L1 9:56 AM [facility] STLJsstcgg782(H)74 - 99 mg/dL04/29/2025 9:56 AM [facility] LABComment: The [place] Diabetes Association (ADA) provides guidance for cutoff [...] Standards of Medical Care in Diabetes 2016, [place] [employer] Association. Diabetes Care. 2016.39(Suppl 1). JNC339 - 24 mg/dL04/29/2025 9:56 AM [facility] LAB Creatinine1.070.73 - 1.22 mg/dL04/29/2025 9:56 AM [facility] ECMCfepib623923 - 144 mmol/L1 9:56 AM [facility] LABPotassium4.53.7 - 5.1 mmol/L1 9:56 AM [facility] MEHSwngpfmp88473 - 107 mmol/L1 9:56 AM EDT [facility] CCTDW35656 - 30 mmol/L1 9:56 AM T [facility] LABAnion Fvs847 - 15 mmol/L1 9:56 AM [facility] LABEstimated Glomerular Filtration Rate70 >=60 mL/min/1.73m 04/29/2025 9:56 AM [facility] LABComment:Estimated Glomerular Filtration Rate (eGFR) is [...] VolumeCollection TimeReceived TimeBloodBLOOD SPECIMEN / UnknownVenipuncture / Toprotd0404/29/2025 9:13 AM EDT1 9:22 AM EDT Narrative Authorizing ProviderResult TypeResult StatusVivek Jacquelyn WELCHLABORATORYFinal ResultPerforming OrganizationAddressCity/State/ZIP CodePhone Number [facility] [address] [place] [address] documented in this encounter Visit Diagnoses Diagnosis 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 Other nonspecific abnormal finding of lung field Stage 3 chronic kidney disease, unspecified whether stage 3a or 3b CKD (HCC) Other specified disorders of thyroid documented in this encounter Care Teams Team MemberRelationshipSpecialtyStart DateEnd Date Mason Johnson II, MD [address] [place] [address] PCP - GeneralInternal Wqcyxxma08/30/[address] [facility] [address] [address] Registered DietitianNutrition08/20/22 John Valladares MD [facility] [address] [facility] [place] [address] PhysicianHematology/Oncology08/21/22 Natalie Cadena APRN.PRINCIPAL ADMINISTRATIVE CLERK [facility] [address] [place] [address] Nurse PractitionerHematology/Oncology08/21/22 Yordan Randolph MD [address] [place] [address] [place] [address] PhysicianRadiation Oncology08/21/22 Marysol Purvis LSW Social Worker09/07/22documented as of this encounter
--- OUTSIDE RECORDS SUMMARY | 2025-05-06 10:00 | XMS_ITS | Encounter Summary ---
Author Organization [facility] Address [address] [place] [address] Care Team Providers Care Paper Coating Machine Operator Name Role Phone Dee Tirado KARLOS Unavailable [phone] John Valladares MD Unavailable [phone] Natalie Cadena APRN.SHEET MILL SUPERVISOR Unavailable [phone] Yordan Randolph MD Unavailable [phone] Marysol Purvis PAPER PATTERN FOLDER Unavailable Unavailable Alex OLIVAS MD, Mason Regan Primary Care Provider [phone] Source Comments In the event this information is protected by the Federal Confidentiality of Alcohol and Drug AbusePatient Records regulations: The Federal rules restrict any use of the information to criminally investigate or prosecute any alcohol or drug abuse patient.[facility] Reason for Referral * MRI/CT (Routine) - AuthorizedSpecialtyDiagnoses / ProceduresReferred By ContactReferred To ContactCT IMAGING Diagnoses 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) Procedures CT CHEST W IVCON DIAGNOSTIC COMPUTED TOMOGRAPHY THORAX W/CONTRAST John Valladares MD [address] [place] [address] [place] [address] Phone: tel: fax: [place] [address] Referral IDStatusReasonStart DateExpiration DateVisits RequestedVisits [id number] Auto-Generated Referral * MRI/CT (Routine) - AuthorizedSpecialtyDiagnoses / ProceduresReferred By ContactReferred To ContactCT IMAGING Diagnoses 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) Procedures CT NECK SOFT TISSUE W IVCON CT SOFT TISSUE NECK W/CONTRAST MATERIAL John Valladares MD [address] [place] [address] [place] [address] Phone: tel: fax: [place] [address] Referral IDStatusReasonStart DateExpiration DateVisits RequestedVisits [id number] Auto-Generated Referral Reason for Visit * ReasonCommentsCancer of the base of tongue6 month follow up Encounter Details DateTypeDepartmentCare Team (Latest Contact Info)Ozoztpfgnap53/30/2025 10:00 AM EDTVisit (SP) Office Hematology/Oncology [address] [place] [address] [place] [address] John Valladares MD [address] [place] [address] [place] [address] 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); Lung nodules; Stage 3 chronic kidney disease, unspecified whether stage 3a or 3b CKD (HCC); Primary osteoarthritis of hip, unspecified laterality Social History Tobacco UseTypesPacks/DayYears UsedDateSmoking Tobacco: NeverPassive Smoke Exposure: NeverSmokeless Tobacco: NeverAlcohol UseStandard Drinks/WeekComments Yes0 (1 standard drink = 0.6 oz pure alcohol)daily 3 beersPHQ-2AnswerDate RecordedPHQ-2 [id number] Deprivation IndexAnswerDate RecordedNational Score (1-100), lower number is lower udnu142211/07/2022State Score (1-10), lower number is lower xbyy5633Data from: https://www.neighborhoodatlas.[facility]/. Last address used for [address] [place] [address]/07/2022Sex and Gender InformationValueDate Recorded Sex Assigned at BirthNot on fileLegal QyfEqnx02/02/2012 10:15 AM ESTGender IdentityNot on fileSexual OrientationNot on filedocumented as of this encounter Last Filed Vital Signs Vital SignReadingTime TakenCommentsBlood Mwbzqtvj245/5305/06/2025 10:08 AM EDT Yrwnu142305/06/2025 10:08 AM SHNRkwmnegtvgi87.6 ??C (97.8 ??F)05/06/2025 10:08 AM EDTRespiratory Ecma3063 10:08 AM EDTOxygen Trnfnwdjik81%05/06/2025 10:08 AM EDTInhaled Oxygen Concentration--Urwoyg36.8 kg (200 lb 2.8 oz)05/06/2025 10:08 AM PKGVvkcxr775.9 cm (5' 5.71 )05/06/2025 10:08 AM EDTBody Mass Index32.6 05/06/2025 10:08 AM EDTdocumented in this encounter Functional Status * Are you deaf or do you have serious difficulty hearing?AnswerDate of UsqsthoulbCbxxenZe21/23/2014 11:20 AM Jasmyn Anthony * Are you blind or do you have serious difficulty seeing, even when wearing glasses?AnswerDate of DtyvpqbfaoBjktwvYu06/23/2014 11:20 AM Jasmyn Anthony * Do you have serious difficulty walking or climbing stairs?AnswerDate of IlagqkabqyJacjqnXq67/23/2014 11:20 AM Jasmyn Anthony * Do you have difficulty dressing or bathing?AnswerDate of AssessmentAuthorNo 04/29/2014 11:20 AM Jasmyn Anthony * Because of a physical, mental, or emotional condition, do you have difficulty doing errands alone such as visiting a doctor's office or shopping?AnswerDate of GcwdofloowOileoiWo56/23/2014 11:20 AM Jasmyn Anthony documented as of this encounter Mental Status * Because of a physical, mental, or emotional condition, do you have serious difficulty concentrating, remembering, or making decisions?AnswerEntry Date LaugacUg89/23/2014 11:20 AM Jasmyn Anthony documented in this [...] - You are scheduled to see a certified indoor environmentalist before your hip operation, as required for [...] were not included. NAME: Manish Root NO.: [id number] DATE OF SERVICE: May 06, 2025 (Jacquelyn) [...] Ca Stage 3 - 2/5 LN + [place] regimen on protocol HPI: Updated Visit, May [...] prior to surgery. He has notseen a certified indoor environmentalist in 15 years, but has an appointment [...] as his is better. He's originally from [place]. Updated Visit, May 06, 2024: Manish returns [...] wounds or petechiae. ALLERGIES: ALLERGIES Allergen Reactions Nnselel-Ebg-Bla Red* GI Upset MEDICATIONS: celecoxib (CELEBREX) 200 [...] which included preparing to see the patient, bliw-cb-rbbi patient care, completing clinical documentation, obtaining and/or reviewing separately obtained history, performing a medically appropriate examination, counseling and educating the patient/family/caregiver, ordering medications, tests, or procedures, independently interpreting results (not separately reported), communicating results to the patient/family/caregiver, and care coordination (not separately reported). John Valladares MD, CPE Hematology and Oncology Services Provided at: [place], [place] CC: Dr. Yordan Schwartz documented in this encounter Plan of Treatment DateTypeDepartmentCare Team (Latest Contact Info)Dmztmdnbnqg11/22/2026 8:15 AM EDTAppointment Radiology Pet CT [address] [facility] [place] [address] CT Chest and neck with /29/2026 10:00 AM EDTOffice Visit Radiation Oncology [address] [place] [address] [place] [address] Yordan Randolph MD [address] [place] [address] [place] [address] 1 year follow up05/05/2026 10:40 AM EDTVisit (SP) Office Hematology/Oncology [address] [place] [address] [place] [address] John Valladares MD [address] [facility] [place] [address] 1 year follow up for lab and [...] Mason Johnson II, MD [address] [facility] [address] [place] [address] PCP - GeneralInternal Ktbthooj30/30/[address] [facility] [address] Registered DietitianNutrition08/20/22 John Valladares MD [address] [facility] [address] PhysicianHematology/Oncology08/21/22 Natalie Cadena APRN.SHEET MILL SUPERVISOR [address] [place] [address] Nurse PractitionerHematology/Oncology08/21/22 Yordan Randolph MD [address] [place] [address] PhysicianRadiation Oncology08/21/22 Marysol Purvis LSW Social Worker09/07/22documented as of this encounter
--- OUTSIDE RECORDS SUMMARY | 2025-05-06 10:30 | XMS_ITS | Encounter Summary ---
Author Organization [facility] Address [address] [place], [place] [address] Care Team Providers Care Clinical Supervisor Name Role Phone Dee Tirado KARLOS Unavailable [phone] John Valladares MD Unavailable [phone] Natalie Cadena APRN.PARTS REMOVER Unavailable [phone] Yordan Randolph MD Unavailable [phone] Marysol Purvis Unavailable Unavailable Alex OLIVAS MD, Mason Regan Primary Care Provider [phone] Source Comments In the event this information is protected by the Federal Confidentiality of Alcohol and Drug AbusePatient Records regulations: The Federal rules restrict any use of the information to criminally investigate or prosecute any alcohol or drug abuse patient.[facility] Reason for Visit * ReasonCommentsHead and Neck Cancer Encounter Details DateTypeDepartmentCare Team (Latest Contact Info)Uuccztoqzxu88/30/2025 10:30 AM EDTOffice Visit Radiation Oncology [address] [place] [address] Yordan Randolph MD [address] [place] [address] [place] [address] Head and neck cancer (HCC) (Primary Dx); Acquired hypothyroidism Social History Tobacco UseTypesPacks/DayYears UsedDateSmoking Tobacco: NeverPassive Smoke Exposure: NeverSmokeless Tobacco: NeverAlcohol UseStandard Drinks/WeekComments Yes0 (1 standard drink = 0.6 oz pure alcohol)daily 3 beersPHQ-2AnswerDate RecordedPHQ-2 igyos6595Area Deprivation IndexAnswerDate RecordedNational Score (1-100), lower number is lower vsrm481211/07/2022State Score (1-10), lower number is lower qjxj9083Data from: https://www.neighborhoodatlas.[facility]/. Last address used for j[address] [place] [address]/07/2022Sex and Gender InformationValueDate Recorded Sex Assigned at BirthNot on fileLegal KxlCzgn47/02/2012 10:15 AM ESTGender IdentityNot on fileSexual OrientationNot on filedocumented as of this encounter Functional Status * Are you deaf or do you have serious difficulty hearing?AnswerDate of FfmrhrluzvOytujjWa57/23/2014 11:20 AM Jasmyn Anthony * Are you blind or do you have serious difficulty seeing, even when wearing glasses?AnswerDate of AzobarsvusJnsqgxZf04/23/2014 11:20 AM Jasmyn Anthony * Do you have serious difficulty walking or climbing stairs?AnswerDate of JzqirzfeeyIquzfaYu50/23/2014 11:20 AM Jasmyn Anthony * Do you have difficulty dressing or bathing?AnswerDate of AssessmentAuthorNo 04/29/2014 11:20 AM Jasmyn Anthony * Because of a physical, mental, or emotional condition, do you have difficulty doing errands alone such as visiting a doctor's office or shopping?AnswerDate of LsifoociujGodjogWf77/23/2014 11:20 AM Jasmyn Anthony documented as of this encounter Mental Status * Because of a physical, mental, or emotional condition, do you have serious difficulty concentrating, remembering, or making decisions?AnswerEntry Date YoysuqZu23/23/2014 11:20 AM Jasmyn Anthony documented in this encounter Plan of Treatment DateTypeDepartmentCare Team (Latest Contact Info)Jpnbapftlks52/22/2026 8:15 AM EDTAppointment Radiology Pet CT [address] [place] [address] [place] [address] CT Chest and neck with bdozoxms23/29/2026 10:00 AM EDTOffice Visit Radiation Oncology [address] [place] [address] Yordan Randolph MD [address] [place] [address] 1 year follow up05/05/2026 10:40 AM EDTVisit (SP) Office Hematology/Oncology [address] [place] [address] John Valladares MD [address] [place] [address] [place] [address] 1 year follow up for lab and [...] Mason Johnson II, MD [address] [facility] [address] [place] [address] PCP - GeneralInternal Chrikfhr79/30/[address] [place] [address] [place] [address] Registered DietitianNutrition08/20/22 John Valladares MD [address] [place] [address] [place] [address] PhysicianHematology/Oncology08/21/22 Natalie Cadena APRN.PARTS REMOVER [address] [place] [address] [place] [address] Nurse PractitionerHematology/Oncology08/21/22 Yordan Randolph MD [address] [place] [address] [place] [address] PhysicianRadiation Oncology08/21/22 Marysol Purvis LSW Social Worker09/07/22documented as of this encounter
[2025-05-07] VITALS (15 sets, daily range): BP systolic 143–165; BP diastolic 75–105; PULSE 68–90; TEMP 36.3; O2SAT 96–99; BMI 30.5
--- NOTE | 2025-05-07 10:09 | ECG_ITS ---
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 Measurements Intervals [place] Rate: 76 P: -[phone] TX: -78495 QRS: -19 QRSD: 88 T: 42 QT: 336 QTc: 366 Interpretive Statements 1250 Atrial flutter INCOMPLETE RIGHT BUNDLE BRANCH BLOCK 9150 abnormal ECG Compared to ECG 04/29/2025 12:39:27 No significant changes Electronically Signed On 05-07-2025 18:05:53 EDT by MECHELLE SCHMIDT M.D.
--- NOTE | 2025-05-07 10:10 | XR_ITS ---
The [place] [id number] Patient Name: ANN RIVERA MRN: [id number] date: 1945 Sex: M Assigned Patient Location: ER Current Patient Location: ER Accession/Order Number: [id number] Exam Date: 05/07/2025 10:20 Report Date: 05/07/2025 10:45 At the request of: MIRIAN BARBOSA MD Procedure: XR chest 1V PORTABLE AP ERECT CHEST 1023 hours CLINICAL HISTORY: Chest pain COMPARISON: None The heart is top normal in size. There is no vascular congestion. The lungs, as visualized, are clear. There is no effusion or pneumothorax. The osseous structures are intact. End plate spurring is seen at the spine. There is degenerative change at the imaged left shoulder. XR/XR chest 1V IMPRESSION: NO ACUTE FINDINGS Impression dictated by: Mavis Corea M.D. 05/07/2025 10:45 AM Dictation Location: [place] [address] Electronically authenticated by: [id number] Y Date: 05/07/2025 10:45
[2025-05-07 10:17] LABS: Hematocrit 38.3 % (42.0-54.0); Hemoglobin 12.7 g/dL (14.0-18.0); Immature Granulocytes Abs Auto 0.03 10^3/uL (0.00-0.03); Immature Granulocytes Pct Auto 0.6 % (0.0-0.5); Lymphocytes Absolute Auto 0.5 10^3/uL (1.2-3.8); Mean Corpuscular HGB Conc 33.2 g/dL (29.9-35.2); Mean Corpuscular Hemoglobin 30.1 pg (25.9-34.0); Mean Corpuscular Volume 90.8 fL (80.0-94.0); Platelet Count 249 10^3/uL (150-450); Red Blood Count 4.22 10^6/uL (4.70-6.10); White Blood Count 5.2 10^3/uL (4.0-11.0)
[2025-05-07 10:46] LABS: Alanine Aminotransferase 24 U/L (16-63); Albumin Globulin Ratio 1.0; Albumin Level 3.5 g/dL (3.4-5.0); Alkaline Phosphatase 65 U/L (46-116); Anion Gap 13.4; Aspartate Amino Transferase 19 U/L (15-37); Blood Urea Nitrogen 20.0 mg/dL (7.0-18.0); Calcium 9.1 mg/dL (8.5-10.1); Carbon Dioxide 27.9 mmol/L (21.0-32.0); Chloride 103 mmol/L (98-107); Estimated GFR (African America >60 (>=60 mL/min/1.73m^2); Estimated GFR (Non-African Ame 57 (>=60 mL/min/1.73m^2); Globulin 3.6 g/dL; Glucose 167 mg/dL (74-106); Potassium 4.3 mmol/L (3.5-5.1); Sodium 140 mmol/L (136-145); Total Protein 7.1 g/dL (6.4-8.2)
--- OUTSIDE RECORDS SUMMARY | 2025-05-07 11:05 | XMS_ITS | Clinical Summary ---
Author Organization [facility] Address [address] [place], [place] [address] Care Team Providers Care Supervisor Prepress Name Role Phone Christopher Tiradodavid EVERETT Unavailable [phone] John Valladares MD Unavailable [phone] Natalie Cadena APRN.FILING MACHINE OPERATOR Unavailable [phone] Yordan Randolph MD Unavailable [phone] Marysol Purvis C T TECH Unavailable Unavailable Alex OLIVAS MD, Daniel B Primary Care Provider [phone] Allergies Active AllergyReactionsCriticalityNoted TjlkJfhomfruZjydoym-Pck-Uab Reductase InhibitorsGI Upset06/10/2023 Medications MedicationSigDispense QuantityRefillsLast FilledStart DateEnd DateStatus Aspirin 81 mg tab 81 mg every other day.Active fenofibrate (LOFIBRA) 134 mg capsule Take 134 mg by mouth once daily.03/02/2016Active ergocalciferol 50,000 unit capsule (VITAMIN D2, DRISDOL) TAKE 1 CAPSULE BY MOUTH VAQIJR9507/05/2022ctive metFORMIN (GLUCOPHAGE) 500 mg tablet Take 500 mg by mouth once daily.06/12/2022ctive metoprolol succinate ER (TOPROL XL) 25 mg 24 hr tablet Take 25 mg by mouth once daily.06/12/2022ctive latanoprost (XALATAN) 0.005 % ophthalmic solution instill 1 (ONE) DROP IN BOTH EYES AT EOIAJFR5605/01/2023ctive cholecalciferol, Vitamin D3, (VITAMIN D3) 1,250 mcg [...] Active Problems ProblemNoted DateDiagnosed DateDisorder of carbohydrate rywooyoevh17/07/2023 Stage 3 chronic kidney disease, unspecified whether stage 3a or 3b CKD2022 Cancer of the base of cfntia0708/21/2022olon nmsgmx7311/19/2012 Resolved Problems ProblemNoted DateDiagnosed DateResolved DateChemotherapy-induced neutropenia /Overlapping malignant neoplasm of colon Encounters DateTypeDepartmentCare HpmgOawzxgzyuqd06/30/2025 10:30 AM EDTOffice Visit Radiation Oncology [address] [place] [address] Yordan Randolph MD Head and neck cancer (HCC) (Primary Dx); Acquired pvcdwphcryyhxp48/30/2025 10:00 AM EDTVisit (SP) Office Hematology/Oncology [address] [place] [address] John Valladares MD 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); Lung nodules; Stage 3 chronic kidney disease, unspecified whether stage 3a or 3b CKD (HCC); Primary osteoarthritis of hip, unspecified rsoizctnqf18/30/1488Umanzo03/23/2025 9:12 AM EDT - 04/29/2025 11:59 PM EDTHospital Encounter Radiology Pet CT [address] [place] [address] 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) [...] FLULAVAL, FLUVIRIN, FLUZONE)06/21/2015influenza (LAIV) vaccine, nasal, unspecified eyrwluscohw10/27/2022influenza (aIIV4) vaccine, age 65+ yr, quadrivalent, PF (FLUAD QUAD)06/20/2023,05/03/2022,06/15/2021influenza (ccIIV4) vaccine, age 6+ mo, quadrivalent, PF (FLUCELVAX)06/24/2018novel influenza (P3G7-57) vaccine, PF 06/20/2009 Social History Tobacco UseTypesPacks/DayYears UsedDateSmoking Tobacco: NeverPassive Smoke Exposure: NeverSmokeless Tobacco: Never Tobacco Cessation:Counseling Given: Not Answered Alcohol UseStandard Drinks/WeekCommentsYes0 (1 standard drink = 0.6 oz pure alcohol)daily 3 beersPHQ-2AnswerDate RecordedPHQ-2 htnqk980rea Deprivation IndexAnswerDate RecordedNational Score (1-100), lower number is lower mddg625111/07/2022State Score (1-10), lower number is lower uvdy461 Data from: https://www.neighborhoodatlas.[facility].edu/. Last address used for [address] [place] [address]/07/2022Sex and Gender InformationValueDate RecordedSex Assigned at BirthNot on fileLegal FeqJebl06/02/2012 10:15 AM EST Gender IdentityNot on fileSexual OrientationNot on file Last Filed Vital Signs Vital SignReadingTime TakenCommentsBlood Pqnpysqw568/5305/06/2025 10:08 AM EDT Cltbp066905/06/2025 10:08 AM BQBQpzwtdvzxzd19.6 ??C (97.8 ??F)05/06/2025 10:08 AM EDTRespiratory Bagn0922 10:08 AM EDTOxygen Qenxyspriq19%05/06/2025 10:08 AM EDTInhaled Oxygen Concentration--Iwytsd36.8 kg (200 lb 2.8 oz)05/06/2025 10:08 AM MYOXwullp430.9 cm (5' 5.71 )05/06/2025 10:08 AM EDTBody Mass Index32.6 05/06/2025 10:08 AM EDT Plan of Treatment DateTypeDepartmentCare Team (Latest Contact Info)Qcrkurorqrc70/22/2026 8:15 AM EDTAppointment Radiology Pet CT [address] [place] [address] [place] [address] CT Chest and neck with ojwovqhw59/29/2026 10:00 AM EDTOffice Visit Radiation Oncology [address] [place] [address] [place] [address] Yordan Randolph MD [address] [place] [address] [place] [address] 1 year follow up05/05/2026 10:40 AM EDTVisit (SP) Office Hematology/Oncology [address] [place] [address] [place] [address] John Valladares MD [address] [place] [address] [place] [address] 1 year follow up for lab and ct scan resultsHealth MaintenanceDue DateLast Done CommentsAnxiety Rvlizocjr71/26/1962Depression Ubaizezvl59/26/1962DTaP,Tdap,Td Vaccine (1 - Tdap)10/31/1962Pneumococcal Vaccine: 50+ (1 of 1 - PCV)10/31/1993 Shingrix Vaccine (1 of 2)10/31/1993RSV Vaccine (1 - 1-dose 75+ series)10/31/2018 Advance Directive Vshijcozib28/01/2025[facility] 5Covid-19 Vaccine (3 - season)503/08/2020, 08/09/2020 Influenza Vaccine (#1)501/02/2025, 06/20/2023, 05/03/2022, Additional history existsDiabetes Wacddabsl49, 12/09/2024, 10/28/2024, Additional history exists Procedures Procedure NamePriorityDate/TimeAssociated DiagnosisCommentsCT CHEST W IVCON Bmyjlfx6704/29/2025 10:27 AM EDT 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 Stage 3 chronic kidney disease, unspecified whether stage 3a or 3b CKD (HCC) CT NECK SOFT TISSUE W JYATVLgywkot32/23/2025 10:27 AM EDT 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 If you are unable to reach us at the number above, please feel free to contact [facility] at [phone]. Narrative 04/29/2025 2:07 PM EDT * * [...] images: No additional findings. Procedure Note Provider, [facility] - 04/29/2025 * * *Final Report* * * DATE OF EXAM: Apr 29 2025 10:27AM [facility] 0539 - CT CHEST W [...] any questions regarding this interpretation, please call [phone]. If you are unable to reach us at the number above, please feel free to contact [facility] at [phone]. Authorizing ProviderResult TypeResult StatusVivek Abhyankar MDCT-PAMAFinal Result * CT NECK SOFT TISSUE W IVCON (04/29/2025 10:27 AM EDT)Anatomical Region LateralityModalityNeNBaptist Health [facility], Nuclear [facility]pecnov[facility] centern (Source) Anatomical Location / LateralityCollection Method / VolumeCollection Time Received Time04/29/2025 10:27 AM EDT Impressions 04/29/2025 11:23 AM EDT IMPRESSION: * ??Stable posttreatment changes as detailed. No significant other enhancing lesion suggest recurrent or residual disease. * ??No enlarged lymph node in the neck, by CT size criteria. Transcribe Date/Time: Apr 29 2025 11:07A Dictated by: SADIQ MYAORGA MD This examination was interpreted and the report reviewed and electronically signed by: SADIQ MAYORGA MD on Apr 29 2025 11:21AM ??EST Thank you for allowing us to participate in the care of your patient. Should there be any questions regarding this interpretation, please call [phone]. If you are unable to reach us at the number above, please feel free to contact [facility] at [phone]. Narrative 04/29/2025 11:23 AM EDT * * [...] accession. Other: Not applicable. Procedure Note Provider, [facility] - 04/29/2025 * * *Final Report* * * DATE OF EXAM: Apr 29 2025 10:27AM [facility] 0013 - CT NECK SOFT [...] any questions regarding this interpretation, please call [phone]. If you are unable to reach us at the number above, please feel free to contact [facility] at [phone]. Authorizing ProviderResult TypeResult StatusVivek Abhyankar MDCT-PAMAFinal Result * THYROID STIMULATING HORMONE (04/29/2025 9:13 AM EDT)ComponentValueRef Range Test MethodAnalysis TimePerformed AtPathologist SignatureTSH2.7600.270 - 4.200 mIU/L1 9:33 PM EDTCPREMIER HEALTH [facility] LABSpecimen (Source) Anatomical Location / LateralityCollection Method / VolumeCollection Time Received TimeBloodBLOOD SPECIMEN / UnknownVenipuncture / Vzxqmlx8304/29/2025 9:13 AM EDT1 9:22 AM EDT Narrative Authorizing ProviderResult TypeResult StatusG Jeyson Randolph MDLABORATORYFinal ResultPerforming OrganizationAddressCity/State/ZIP CodePhone Number [facility] [address] * (ABNORMAL) COMPREHENSIVE METABOLIC PANEL (04/29/2025 9:13 AM EDT)Component ValueRef RangeTest MethodAnalysis TimePerformed AtPathologist Signature Protein, Total7.16.3 - 8.0 g/dL04/29/2025 9:56 AM EDTNORTTRINITY [facility] LABAlbumin4.23.9 - 4.9 g/dL04/29/2025 9:56 AM EDTNORTTRINITY [facility]ALTH [facility] LABCalcium, Total10.28.5 - 10.2 mg/dL04/29/2025 9:56 AM EDTNORTTRINITY [facility]ALTH [facility] LABBilirubin, Total0.50.2 - 1.3 mg/dL 04/29/2025 9:56 AM EDTNORTTRINITY [facility]ALTH [facility] LABAlkaline Rdijxkmupph6884 - 113 U/L1 9:56 AM EDTNORTTRINITY [facility]ALTH [facility] KEOZOL2049 - 40 U/L1 9:56 AM EDTNORTTRINITY [facility]ALTH [facility] VIIJNB7785 - 54 U/L1 9:56 AM [facility]DS[facility] CWCAepltuc012(H)74 - 99 mg/dL04/29/2025 9:56 AM EDTNORTTRINITY HEALTH [facility] LABComment: The [place] Diabetes Association (ADA) provides guidance for cutoff [...] Standards of Medical Care in Diabetes 2016, [place] Diabetes Association. Diabetes Care. 2016.39(Suppl 1). MCQ615 - 24 mg/dL04/29/2025 9:56 AM [facility] Creatinine1.070.73 - 1.22 mg/dL04/29/2025 9:56 AM [facility] GJOLopvzm296621 - 144 mmol/L1 9:56 AM [facility] LABPotassium4.53.7 - 5.1 mmol/L1 9:56 AM [facility] BOSEqqgicsl62002 - 107 mmol/L1 9:[address] [facility] NMKPR18086 - 30 mmol/L1 9:[address] [facility] LABAnion Wfp715 - 15 mmol/L1 9:56 AM [facility] [...] VolumeCollection TimeReceived TimeBloodBLOOD SPECIMEN / UnknownVenipuncture / Sloubtj6904/29/2025 9:13 AM EDT1 9:22 AM EDT Narrative Authorizing ProviderResult TypeResult StatusJohn Valladares MDLABORATORYFinal ResultPerforming OrganizationAddressCity/State/ZIP CodePhone Number [facility] [address] [place] [address] * (ABNORMAL) COMPLETE BLOOD COUNT AND DIFFERENTIAL (04/29/2025 9:13 AM EDT) ComponentValueRef RangeTest MethodAnalysis TimePerformed AtPathologist SignatureWBC5.883.70 - 11.00 k/uL04/29/2025 9:25 AM EDTNORTTRINITY [facility]ALTH [facility] LABRBC4.504.20 - 6.00 m/uL04/29/2025 9:25 AM EDTNORTTR[facility] ZGBXfzefxcuds48.213.0 - 17.0 g/dL04/29/2025 9:[address] [facility] SLOGevmsiyclk01.339.0 - 51.0 %04/29/2025 9:25 AM EDTNORTTR[facility] LXAMRE72.680.0 - 100.0 fL 04/29/2025 9:25 AM EDTNORTTR[facility] SLTGMI49.326.0 - 34.0 pg04/29/2025 9:25 AM EDTNORTHCHEN[facility] QYQVDOS33.830.5 - 36.0 g/dL04/29/2025 9:25 AM EDTNORTTRINITY [facility] LABRDW-CV14.5 11.5 - 15.0 %04/29/2025 9:25 AM EDTNORTTR[facility] LAB Platelet Oiwhd422308 - 400 k/uL04/29/2025 9:25 AM EDTNORTTR[facility] LABMPV9.89.0 - 12.7 fL04/29/2025 9:25 AM [facility]DSUMM[facility] LABNeutrophils %79.1%04/29/2025 9:25 AM [facility]DSUM[facility] LABAbs Neut4.661.45 - 7.50 k/uL04/29/2025 9:25 AM [facility]DSUM[facility] LABLymphocytes %9.9%04/29/2025 9:25 AM [facility]DSUM[facility] LABAbs Lymph0.58(L)1.00 - 4.00 k/uL04/29/2025 9:25 AM [facility]DS[facility] LABMonocytes %7.8%04/29/2025 9:25 AM EDT [facility] LABAbs Mono0.46<0.87 k/uL04/29/2025 9:25 AM [facility] LABEosinophils %1.4%04/29/2025 9:25 AM [facility] LABAbs Eosin0.08<0.46 k/uL04/29/2025 9:25 AM [facility] LABBasophils %0.9%04/29/2025 9:25 AM [facility] LABAbs Baso0.05<0.11 k/uL04/29/2025 9:25 AM [facility]DS[facility] LABImmature Granulocytes %0.9% 04/29/2025 9:25 AM [facility] LABAbs Immature Gran 0.05<0.10 k/uL04/29/2025 9:25 AM [facility]DS[facility] LABNRBC 0.0/100 WBC04/29/2025 9:25 AM [facility] LABAbsolute nRBC<0.01<0.01 k/uL04/29/2025 9:25 AM [facility]DSUM[facility] LABDiff PazxYnfo24/23/2025 9:25 AM EDTNORTHCHENRY [facility]D [facility] LAB Specimen (Source)Anatomical Location / LateralityCollection Method / Volume Collection TimeReceived TimeBloodBLOOD SPECIMEN / UnknownVenipuncture / Mfaaiww7204/29/2025 9:13 AM EDT1 9:22 AM EDT Narrative Authorizing ProviderResult TypeResult StatusJohn Valladares MDLABORATORYFinal ResultPerforming OrganizationAddressCity/State/ZIP CodePhone Number [facility] [address] [facility] [place] [address] from Last 3 Months Insurance Care Teams Team MemberRelationshipSpecialtyStart DateEnd Mason Johnson II, MD [address] [place] [address] PCP - GeneralInternal Fkaimcdh13/30/[address] [place] [address] Registered DietitianNutrition08/20/22 John Valladares MD [address] [place] [address] PhysicianHematology/Oncology08/21/22 Natalie Cadena APRN.FILING MACHINE OPERATOR [address] [place] [address] Nurse PractitionerHematology/Oncology08/21/22 Yordan Randolph MD [address] [place] [address] PhysicianRadiation Oncology08/21/22 Marysol Purvis LSW Social Worker09/07/22
--- OUTSIDE RECORDS SUMMARY | 2025-05-07 11:05 | XMS_ITS | Encounter Summary ---
Author Organization [facility] Address [address] [place] [address] Care Team Providers Care Sanitation Worker Cleaning Machinery Name Role Phone Juliet iTradomart EVERETT Unavailable [phone] John Valladares MD Unavailable [phone] Natalie Cadena APRN.FUNCTIONAL SKILLS TUTOR Unavailable [phone] Yordan Randolph MD Unavailable [phone] Marysol Purvis SALESPERSON SHOES Unavailable Unavailable Alex OLIVAS MD, Mason Regan Primary Care Provider [phone] Source Comments In the event this information is protected by the Federal Confidentiality of Alcohol and Drug AbusePatient Records regulations: The Federal rules restrict any use of the information to criminally investigate or prosecute any alcohol or drug abuse patient.[facility] Encounter Details DateTypeDepartmentCare Team (Latest Contact Info)Zksmijfrmok39/30/2025Travel Social History Tobacco UseTypesPacks/DayYears UsedDateSmoking Tobacco: NeverPassive Smoke Exposure: NeverSmokeless Tobacco: NeverAlcohol UseStandard Drinks/WeekComments Yes0 (1 standard drink = 0.6 oz pure alcohol)daily 3 beersPHQ-2AnswerDate RecordedPHQ-2 muxef514rea Deprivation IndexAnswerDate RecordedNational Score (1-100), lower number is lower adoy154511/07/2022State Score (1-10), lower number is lower jjsi895/03/2023Data from: https://www.neighborhoodatlas.[facility]/. Last address used for [address] [place] [address]/07/2022Sex and Gender InformationValueDate Recorded Sex Assigned at BirthNot on fileLegal JfyOcxz90/02/2012 10:15 AM ESTGender IdentityNot on fileSexual OrientationNot on filedocumented as of this encounter Functional Status * Are you deaf or do you have serious difficulty hearing?AnswerDate of ZdqltxdaopBhjgzuTm79/23/2014 11:20 AM Jasmyn Anthony * Are you blind or do you have serious difficulty seeing, even when wearing glasses?AnswerDate of FpedwnpiydCritczIo81/23/2014 11:20 AM Jasmyn Anthony * Do you have serious difficulty walking or climbing stairs?AnswerDate of ZxdbskwxmzMtpbgiQk04/23/2014 11:20 AM Jasmyn Anthony * Do you have difficulty dressing or bathing?AnswerDate of AssessmentAuthorNo 04/29/2014 11:20 AM Jasmyn Anthony * Because of a physical, mental, or emotional condition, do you have difficulty doing errands alone such as visiting a doctor's office or shopping?AnswerDate of DyekxrdssmBeawkhMy65/23/2014 11:20 AM Jasmyn Anthony documented as of this encounter Mental Status * Because of a physical, mental, or emotional condition, do you have serious difficulty concentrating, remembering, or making decisions?AnswerEntry Date CbwenuBa05/23/2014 11:20 AM Jasmyn Anthony documented in this encounter Plan of Treatment DateTypeDepartmentCare Team (Latest Contact Info)Vorzwiuutho99/22/2026 8:15 AM EDTAppointment Radiology Pet CT [address] [place] [address] CT Chest and neck with ksgcwgaj68/29/2026 10:00 AM EDTOffice Visit Radiation Oncology [address] [place] [address] Yordan Randolph MD [address] [place] [address] 1 year follow up05/05/2026 10:40 AM EDTVisit (SP) Office Hematology/Oncology [address] [place] [address] John Valladares MD [address] [place] [address] 1 year follow up for lab and ct scan resultsdocumented as of this encounter Visit Diagnoses Not on filedocumented in this encounter Care Teams Team MemberRelationshipSpecialtyStart DateEnd Date Mason Johnson II, MD [address] [place] [address] PCP - GeneralInternal Aetbotjz74/30/[address] [place] [address] Registered DietitianNutrition08/20/22 John Valladares MD [address] [place] [address] [place] [address] PhysicianHematology/Oncology08/21/22 Natalie Cadena APRN.FUNCTIONAL SKILLS TUTOR [address] [facility] [place] [address] Nurse PractitionerHematology/Oncology08/21/22 Yordan Randolph MD [address] [place] [address] [place] [address] PhysicianRadiation Oncology08/21/22 Marysol Purvis LSW Social Worker09/07/22documented as of this encounter
--- OUTSIDE RECORDS SUMMARY | 2025-05-07 11:05 | XMS_ITS | Clinical Summary ---
Author Organization [facility] Address [address] [place] [address] Care Team Providers Care Hollow Tile Partition Erector Name Role Phone Mason Johnson MD Primary Care Provider [phone] Social History Tobacco UseTypesPacks/DayYears UsedDateSmoking Tobacco: Never AssessedSex and Gender InformationValueDate RecordedSex Assigned at BirthNot on fileLegal Sex Male01/03/2022 10:06 PM EDTGender IdentityNot on fileSexual OrientationNot on file Plan of Treatment DateTypeDepartmentCare Team (Latest Contact Info)Nctbfgistfb21/10/2025 10:20 AM ESTOffice Visit [facility] [address] [place] [address] Kvng Sherwood MD [address] [place] [phone] Health MaintenanceDue DateLast DoneCommentsDiabetes: Hemoglobin A1C1943 Diabetes: Retinopathy Psorahfts21/26/1954Depression Rbthlpoyg17/26/1956 Pneumococcal Vaccine: 50+ Years (1 of 2 - PCV)10/31/1962Zoster Vaccines (1 of 2) 10/31/1962Adult Bfyadmd0610/31/1965Fall Risk Ndabgioyw95/26/2009COVID-19 Vaccine (3 - Moderna risk series)103/08/2020, 08/09/2020Influenza Vaccine (#1) 501/02/2025, 06/20/2023, 05/03/2022, Additional history existsDiabetes: Urine Protein Yfrgdccvo56/HIB VaccinesAged OutNo longer eligible based on patient's [...] Team MemberRelationshipSpecialtyStart DateEnd Date Mason Johnson MD [address] [place] [address] PCP - GeneralInternal Fiixagsu90/22/25
--- OUTSIDE RECORDS SUMMARY | 2025-05-07 11:05 | XMS_ITS | Encounter Summary ---
Author Organization [facility] Address [address] [place] [address] Care Team Providers Care Mobile Ui Developer Name Role Phone Juliet Tiradomart EVERETT Unavailable [phone] John Valladares MD Unavailable [phone] Natalie Cadena APRN.MANAGER [place] Unavailable [phone] Yordan Randolph MD Unavailable [phone] Marysol Purvis NUCLEAR MEDICINE OFFICER Unavailable Unavailable Alex OLIVAS MD, Mason Regan Primary Care Provider [phone] Source Comments In the event this information is protected by the Federal Confidentiality of Alcohol and Drug AbusePatient Records regulations: The Federal rules restrict any use of the information to criminally investigate or prosecute any alcohol or drug abuse patient.[facility] Encounter Details DateTypeDepartmentCare Team (Latest Contact Info)Piwmnaqzrgo81/23/2025Travel Social History Tobacco UseTypesPacks/DayYears UsedDateSmoking Tobacco: NeverPassive Smoke Exposure: NeverSmokeless Tobacco: NeverAlcohol UseStandard Drinks/WeekComments Yes0 (1 standard drink = 0.6 oz pure alcohol)daily 3 beersPHQ-2AnswerDate RecordedPHQ-2 ygpcm4115Area Deprivation IndexAnswerDate RecordedNational Score (1-100), lower number is lower niwv054011/07/2022State Score (1-10), lower number is lower utmw070/03/2023Data from: https://www.neighborhoodatlas.[facility]/. Last address used for [address] [place] [address]/07/2022Sex and Gender InformationValueDate Recorded Sex Assigned at BirthNot on fileLegal UsaKwnu25/02/2012 10:15 AM ESTGender IdentityNot on fileSexual OrientationNot on filedocumented as of this encounter Functional Status * Are you deaf or do you have serious difficulty hearing?AnswerDate of QqtkbpmcpjWtljszYu70/23/2014 11:20 AM Jasmyn Anthony * Are you blind or do you have serious difficulty seeing, even when wearing glasses?AnswerDate of BjcrauzadrCxmamnXi23/23/2014 11:20 AM Jasmyn Anthony * Do you have serious difficulty walking or climbing stairs?AnswerDate of LhdyqknfpuWrmubrRr11/23/2014 11:20 AM Jasmyn Anthony * Do you have difficulty dressing or bathing?AnswerDate of AssessmentAuthorNo 04/29/2014 11:20 AM Jasmyn Anthony * Because of a physical, mental, or emotional condition, do you have difficulty doing errands alone such as visiting a doctor's office or shopping?AnswerDate of UwjszdorosVznaygUn19/23/2014 11:20 AM Jasmyn Anthony documented as of this encounter Mental Status * Because of a physical, mental, or emotional condition, do you have serious difficulty concentrating, remembering, or making decisions?AnswerEntry Date OaaxocIw87/23/2014 11:20 AM Jasmyn Anthony documented in this encounter Plan of Treatment DateTypeDepartmentCare Team (Latest Contact Info)Ndkoeupkpas96/22/2026 8:15 AM EDTAppointment Radiology Pet CT [address] [place] [address] CT Chest and neck with onpganvf22/29/2026 10:00 AM EDTOffice Visit Radiation Oncology [address] [place] [address] Yordan Randolph MD [address] [place] [address] 1 year follow [...] [address] [place] [address] PCP - GeneralInternal Vcuyycct45/30/[address] [place] [address] Registered DietitianNutrition08/20/22 John Valladares MD [address] [place] [address] [place] [address] PhysicianHematology/Oncology08/21/22 Natalie Cadena APRN.MANAGER [place] [address] [place] [address] Nurse PractitionerHematology/Oncology08/21/22 Yordan Randolph MD [address] [place] [address] [place] [address] PhysicianRadiation Oncology08/21/22 Marysol Purvis LSW Social Worker09/07/22documented as of this encounter
--- OUTSIDE RECORDS SUMMARY | 2025-05-07 11:06 | XMS_ITS ---
Author Organization [facility] Address [address] [id number] Care Team Providers Care Floatlight Powder Mixer Name Role Phone Juliet Tiradomart EVERETT Unavailable [phone] John Valladares MD Unavailable [phone] Natalie Cadena APRN.[employer] Unavailable [phone] Yordan Randolph MD Unavailable [phone] Marysol Purvis [employer] Unavailable Unavailable Alex OLIVAS MD, Mason Regan Primary Care Provider [phone] Active Problems ProblemNoted DateDiagnosed DateDisorder of carbohydrate cijacylwqr34/07/2023 Stage 3 chronic kidney disease, unspecified whether stage 3a or 3b CKD2022 Cancer of the base of wfwwkz1408/21/2022olon wsdtgi7011/19/2012 Current Treatment and Therapy Plans No current [...]
--- OUTSIDE RECORDS SUMMARY | 2025-05-07 11:10 | XMS_ITS | CCD ---
Author Organization [facility] Care Team Providers Care Burr Machine Operator Name Role Phone MANNIE NELSON Primary Care Physician Renea PARTIAD Attending Unavailable NILL, Renea Loomis Attending Unavailable [...] Dee Unavailable Jacquelyn WELCH, John Unavailable Surinder WAGNERN.BENCH ASSEMBLER BATTERY, Natalie Unavailable Paulino HORNER, Rafael Unavailable Yordan Feliz MD Unavailable Marysol Martinez Unavailable Unavailable Candida RD, Dee Unavailable Vidal WELCH, [facility] Primary Care Provider Candida RD, Dee Unavailable Paulino HORNER, Rafael Unavailable Vidal WELCH, [facility] Primary Care Provider Mannie Nelson MD Primary Care Provider Unallocatkira WELCH, [place]oms Provider Primary Care Provi vidhya Alex OLIVAS MD, Daniel B Primary Care Provider Mason Johnson MD Primary Care Provider [phone] Vidal WELCH, [facility] Primary Care Provider Mason Johnson MD [...] Care Unavailable Mechelle Boyer DO Attending Provider [phone] MASON JOHNSON Attending Unavailable BARRY STEVENS Attending Unavailable ALEX, MASON B Referring Unavailable JOHNSON, MASON B Attending Unavailable SERENE MORALES Attending Unavailable ALEX MASON B Attending Unavailable ALEX MASON B Attending Unavailable ALEX MASON B Attending Unavailable MASON JOHNSON B Attending Unavailable SERENE MORALES H Attending Unavailable JOHNSON, MASON B Attending Unavailable JR. ALONSO, MECHELLE Last Attending MASON Perera Referring Unavailable JR. ALONSO, MECHELLE Last Referring Unavaila SERENE Jiang Attending Unavailable JR. ALONSO, MECHELLE Last Attending UnavailMASON Cazares Attending Unavailable SERENE MORALES H Attending Unavailable BARRY STEVENS Attending Unavailable SERENE MORALES Attending Unavailable SERENE MORALES Attending Unavailable Mechelle Boyer Jr Attending Unavailable Mechelle Boyer Jr Admitting Unavailable Vidal WELCH, Primary Care Provider Shaikh Drake MD Primary Care Provider [phone] Unallocated , Quiana Provider Primary Care Provi vidhya Allergies Allergy ClassificationReported Allergen(s)Allergy TypeDate of OnsetReaction(s) Facility (1 source)No Known Medication Allergies; Translations: [No Known Medication Allergies]Propensity to adverse reactions (disorder)[facility] Repository (20 sources)HMG-CoA reductase inhibitorPropensity to adverse efjnzsczn61-15-1607 GI intoleranceAMERICAN FORK [facility] [employer] Work Phone: Medications Current Medications MedicationDrug Class(es)DatesSig (Normalized)Sig (Original)aspirin 81 mg delayed release oral tablet (20 sources)Platelet Aggregation Inhibitor, Nonsteroidal Anti-inflammatory Drug Start: 31-75-8740dwog 1 tablet by mouth once dailyaspirin 81 [...] oral tablet (5 sources)Cephalosporin AntibacterialStart: 10-01-2022 End: 28-52-7886mgsj 1 tablet by mouth twice dailycefUROXime (CEFTIN) 500 mg tablet Take 1 tablet by mouth twice daily for 10 days. 20 tablet 0 10/01/2022 10/11/2022 ActiveComment on above:Take 1 tablet by mouth twice daily for 10 days.celecoxib 200 mg oral capsule (20 sources)Nonsteroidal Anti-inflammatory DrugStart: 10-12-2024 End: 93-05-6701hbik 1 capsule by mouth in the morningcelecoxib (CeleBREX) 200 MG capsule Indications: Osteoarthritis, unspecified osteoarthritis type, un specified site Take 1 capsule (200 mg) by mouth in the morning and 1 capsule (200 mg) before bedtime. 60 capsule 6 11/11/2024 06/09/2025 Activecephalexin 500 mg oral capsule (1 source)Cephalosporin AntibacterialStart: 32-85-7376uhpr 1 capsule by mouth every eight hourscholecalciferol 1.25 mg oral capsule (20 sources)Vitamin DStart: 46-42-5669cxym 1 capsule by mouth every week cholecalciferol, [...] mg oral capsule (20 sources)Provitamin D2 CompoundStart: 89-85-3488ssvy 1 capsule by mouth every weekergocalciferol 50,000 [...] with radiology test) (10 sources)Start: 11-04-2024 End: 91-19-8928kbbvqp 1 dose intravenously once, then inject 1 [...] 1 each 11/04/2024 11/04/2024 ExpiredStart: 11-04-2024 End: 99-00-6401xcunng 1 dose intravenously once, then inject 1 [...] guidelines link. 1 each 11/04/2024 11/04/2024 ActiveStart: 25-97-6205uw contrast (will be provided with radiology test) [...] link. 1 each 11/04/2024 ActiveStart: 05-06-2024 End: 00-15-6622dttojx 1 dose intravenously once, then inject 1 [...] 1 Each 05/06/2024 05/06/2024 ExpiredStart: 05-06-2024 End: 97-05-2980vh contrast (will be provided with radiology test) [...] 1 Each 05/06/2024 05/07/2024 ExpiredStart: 10-23-2023 End: 39-08-4845gf contrast (will be provided with radiology test) [...] Each 0 10/23/2023 10/24/2023 ActiveStart: 10-23-2023 End: 02-12-9145evnltj 1 dose intravenously once, then inject 1 [...] Each 0 10/23/2023 10/23/2023 ExpiredStart: 03-20-2023 End: 62-08-3132jq contrast (will be provided with radiology test) [...] Each 0 03/20/2023 03/21/2023 ActiveStart: 02-06-2023 End: 06-26-2606rq contrast (will be provided with radiology test) [...] 0.05 mg/ml ophthalmic solution (20 sources)Prostaglandin AnalogStart: 73-98-9995dymj 1 drop(s) into the eye(s) at bedtimelatanoprost (XALATAN) 0.005 % ophthalmic solution instill 1 (ONE) DROP IN BOTH EYES AT BEDTIME 05/01/2023 Activetake 1 drop(s) into the eye(s) once dailylatanoprost (Xalatan) 0.005 % ophthalmic solution Administer 1 drop into both eyes Daily ActiveComment on above:instill 1 (ONE) DROP IN BOTH EYES AT BEDTIMEmetFORMIN hydrochloride 500 mg oral tablet (20 sources)BiguanideStart: 06-12-2022 End: 48-16-6844klat 1 tablet by mouth once dailymetFORMIN (Glucophage) 500 MG tablet Indications: Type 2 diabetes mellitus without complication, without long- term current use of insulin (HCC) Take 1 tablet (500 mg) by mouth Daily 100 tablet 3 12/04/2024 06/02/2025 ActiveStart: 29-71-3207meuk 2 tablets by mouth once daily in the morning, then take 1 tablet by mouth in the eveningmetFORMIN (GLUCOPHAGE) 500 mg tablet TAKE 2 TABLETS BY MOUTH EVERY MORNING and TAKE 1 TABLET BY MOUTH IN THE EVENING 0 06/12/2022 ActiveStart: 00-47-1116yzaz 1 tablet by mouth in the eveningmetFORMIN [...] extended release oral tablet (20 sources)beta-Adrenergic BlockerStart: 29-90-3405ypyl 1 tablet by mouth once dailymetoprolol succinate XL (Toprol-XL) 25 MG 24 hr tablet Indications: Primary hypertension Take 1 tablet (25 mg) by mouth Daily Do not crush or chew. 90 tablet 3 12/10/2024 ActiveStart: 01-11-9149ueei 1 tablet by mouth every twenty- four hoursStart: 72-34-5278Rdzxlfbuko Succinate Active MG PO April 07, 2024 12:00amStart: 06-12-2022 End: 59-03-9049pdwv 1 tablet by mouth once dailymetoprolol succinate XL (Toprol- XL) 25 MG 24 hr tablet Indications: Primary hypertension (CMS/HCC) TAKE 1 TABLET BY MOUTH DAILY at the same time each day 90 tablet 1 05/18/2024 ActiveStart: 77-30-5016vxsk 1 tablet by mouth once dailyMetoprolol succinate 25 mg ER Tablet 1 tab, Oral, Daily, Refills(s) 0 Start Date: 04/18/20 Status: OrderedComment on above:Take 25 mg by mouth once daily.tiZANidine 4 mg oral tablet (16 sources)Central alpha-2 Adrenergic AgonistStart: 53-16-4017lbny 1 tablet by mouth in the morningtiZANidine (Zanaflex) 4 MG tablet Indications: Torticollis Take 1 tablet (4 mg) by mouth in the morning and 1 tablet (4 mg) before bedtime. 60 tablet 3 04/21/2025 ActiveStart: 08-31-2024 End: 80-38-2307yxgr 1 tablet by mouth in the morningtiZANidine (Zanaflex) 4 MG tablet Indications: Torticollis Take 1 tablet (4 mg) by mouth in the morning and 1 tablet (4 mg) before bedtime. 60 tablet 3 08/31/2024 10/12/2024 Discontinued (Side effects)traMADol hydrochloride 50 mg oral tablet (13 sources)Opioid AgonistStart: 03-26-2025 End: 39-12-9896ddox 2 tablets by mouth every eight hours for paintraMADol (Ultram) 50 MG tablet Indications: Pseudogout involving multiple joints Take 2 tablets (100 mg) by mouth every 8 (eight) hours if needed for severe pain 40 tablet 1 03/26/2025 04/30/2025 Activetriamcinolone acetonide 1 mg/ml topical cream (1 source)CorticosteroidStart: 04-07-2024 Completed/Discontinued Medications MedicationDrug Class(es)DatesSig (Normalized)Sig (Original)atenolol 25 mg oral tablet (4 sources)beta-Adrenergic BlockerStart: 11-12-2012 End: 25-09-0351xjmw 1 tablet by mouth once dailyATENOLOL 25 mg tablet Take 25 mg by mouth once daily. 0 11/12/2012 08/16/2022 Discontinued (Discontinued by another Health Care Provider)Comment on above:Take 25 mg by mouth once daily. ciprofloxacin 500 mg oral tablet (7 sources)Quinolone AntimicrobialStart: 10-19-2022 End: 65-52-2918qxoj 1 tablet by mouth twice dailyciprofloxacin HCl (CIPRO) 500 mg tablet Take 1 tablet by mouth twice daily for 14 days. 28 tablet 11/02/2022 ExpiredComment on above:Take 1 tablet by mouth twice daily for 14 days.Magnesium (17 sources) End: 32-38-8524Xreqsfvis 400 MG capsule Take by mouth 05/19/2024 Discontinued (Therapy completed)Magnesium 400 MG capsule Take by mouth Active methylPREDNISolone (19 sources)CorticosteroidStart: 04-14-2025 End: 39-69-6798alalgxIMANIZEpckpl (Medrol Dospak) 4 MG tablets Indications: Left hip pain Follow schedule on package instructions 21 tablet 04/14/2025 04/30/2025 DiscontinuedStart: 62-61-6136fvppuwPHFDPQCtagsc (Medrol Dospak) 4 MG tablets Indications: Left hip pain Follow schedule on package instructions 21 tablet 04/14/2025 ActiveStart: 12-09-2024 End: 74-68-4035togefgVYQTNVLizzll (Medrol Dospak) 4 MG tablets Indications: Inflammatory arthritis Follow scheduleon package instructions 21 tablet 12/09/2024 12/28/2024 Discontinued (Therapy completed)Start: 12-09-2024 End: 55-87-7428lseumrGNAEJNXbpohq (Medrol Dospak) 4 MG tablets Indications: Inflammatory arthritis Follow scheduleon package instructions 21 tablet 12/09/2024 12/16/2024 Activeondansetron 8 mg oral tablet (20 sources)Serotonin-3 Receptor AntagonistStart: 08-21-2022 End: 46-49-6959nmvy 1 tablet by mouth every eight hours as neededondansetron (ZOFRAN) 8 mg tablet Take 1 tablet by mouth every 8 hours as needed for nausea/vomiting. 90 tablet 1 08/21/2022 05/08/2023 Discontinued (Discontinued by Patient)Comment on above:Take 1 tablet by mouth every 8 hours as needed for nausea/vomiting.prochlorperazine 10 mg oral tablet (20 sources)PhenothiazineStart: 08-21-2022 End: 15-00-8543jnvi 1 tablet by mouth every six hours as neededprochlorperazine (COMPAZINE) 10 mg tablet Take 1 tablet by mouth every 6 hours as needed. 100 tablet 1 08/21/2022 05/08/2023 Discontinued (Discontinued by Patient)Comment on above:Take 1 tablet by mouth every 6 hours as needed. Problems Active Problems Problem ClassificationProblemDateDocumented DateEpisodic/Chronic Administrative/social admission (4 sources)Patient encounter status; Translations: [Other specified counseling] 37-10-8993SclebfwhEbxsmbif of urinary tract (1 source)Personal history of urinary calculi; Translations: [PERSONAL HISTORY OF URINARY CALCULI]Onset: 18-78-3619ZursepvuIthksj of colon (20 sources)Malignant tumor of colon; Translations: [Malignant neoplasm of colon, unspecified]Onset: 11-19-2012 Resolved: 994261-83-8068RdfmeizSjrhii of head and neck (20 sources)Malignant neoplasm of base of tongue; Translations: [Malignant tumor of tongue]Onset: 99-83-6408NnkpgvdRuorjby kidney disease (20 sources)Chronic kidney disease stage 3; Translations: [Stage 3 chronic kidney disease, unspecified whether stage 3a or 3b CKD (HCC)]Onset: 2022 ChronicChronic kidney disease (1 source)Chronic kidney disease; Translations: [Stage 3 chronic kidney disease, unspecified whether stage 3aor 3b CKD (HCC)]Onset: 38-44-6842Tayyhomv atherosclerosis and other heart disease (20 sources)History of myocardial infarction; Translations: [Atherosclerotic heart disease of [place] coronary artery without angina pectoris]Onset: 082894-99-4821TyepfciOkvgkrrc mellitus with complications (20 sources)Type 2 diabetes mellitus well controlled; Translations: [Type 2 diabetes mellitus with diabetic chronic kidney disease]Onset: 07-11-2023 80-38-6030ZkbbkciQsnntbzd of white blood cells (20 sources)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; Translations: [Agranulocytosis secondary to cancer chemotherapy]Onset: 10-19-2022 Resolved: 31-52-4577GtyzpnvMhxbrvhxg of lipid metabolism (20 sources)Hypercholesterolemia; Translations: [Pure hypercholesterolemia, unspecified]Onset: 08-03-2022 Resolved: 523073-78-0700OdvfbafCiivawnkoc disorders (20 sources)Gastroesophageal reflux disease; Translations: [Gastro-esophageal reflux disease without esophagitis]Onset: 090962-68-5135IvqjozfSqikkgdym hypertension (20 sources)Hypertensive disorder; Translations: [Essential (primary) hypertension]Onset: 081719-05-2540RuklxzvEdidqdtwczsmd symptoms and ill- defined conditions (2 sources)Genuine stress incontinence; Translations: [Stress incontinence (female) (male)]12-72-6958WkpiklxZosr and other crystal arthropathies (20 sources)Pyrophosphate arthritis; 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, multiple sites]Onset: 951820-15-2541KeudcvpZavxvtjib (20 sources)Nonalcoholic steatohepatitis; Translations: [Nonalcoholic steatohepatitis (OJEDA)]Onset: 596743-13-8150IdffkgyMbcfiepulnlub and screening for infectious disease (1 source)Vaccination needed; Translations: [Encounter for immunization] 45-77-9505UlrasizhUjelpczfgdxbty (20 sources)Osteoarthritis; Translations: [Unspecified osteoarthritis, unspecified site]Onset: 046366-10-5389IgnbxqwOljqz aftercare (1 source)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 treater helper (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 of anticoagulants; Translations: [JIG HAND CURRNT USE ANTICOAGULANTS]Onset: 98-27-7828SfwfoyoqUiulx aftercare (1 source)assisted (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 of oral hypoglycemic drugs; Translations: [LONG-TERM USE ORAL HYPOGLYCEMIC DX]Onset: 93-34-5024TqwdpvkxJonfk aftercare (1 source)termite treater helper (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 of aspirin; Translations: [JIG HAND CURRENT USE OF ASPIRIN]Onset: 97-53-2357PuzeysovXeaca and unspecified benign neoplasm (1 source)Personal history of colonic polyps; Translations: [PERSONAL HISTORY OF COLONIC POLYPS]Onset: 51-02-4210EdbeszhcEhyst and unspecified benign neoplasm (1 source)Benign neoplasm of ascending colon; Translations: [BENIGN NEOPLASM OF ASCENDING COLON]Onset: 09-33-6232BifikzcyHowjg and unspecified benign neoplasm (1 source)Benign neoplasm of descending colon; Translations: [BENIGN NEOPLASM OF DESCENDING COLON]Onset: 07-91-8028TbfpkldfWcyce gastrointestinal disorders (1 source)Dysphagia, unspecified; Translations: [DYSPHAGIA UNSPECIFIED]Onset: 41-38-8867EjdqtedgOtucy liver diseases (1 source)Fatty (change of) liver, not elsewhere classified; Translations: [FATTY CHANGE LIVER NEC]Onset: 64-11-9794QizwaevXqjyp lower respiratory disease (3 sources)Lung mass; Translations: [Other nonspecific abnormal finding of lung field]13-04-3396AptsopdnAcrjl lower respiratory disease (9 sources)Multiple nodules of lung; Translations: [Other nonspecific abnormal finding of lung field]03-93-2945GoaabkrlZkpxi lower respiratory disease (1 source)Nodule of lung; Translations: [Solitary pulmonary nodule]02-11-2023 EpisodicOther non-traumatic joint disorders (12 sources)Hip pain; Translations: [Pain in left hip]70-03-1133QreqvdalPhbzs non-traumatic joint disorders (4 sources)Effusion of joint of left knee; Translations: [Effusion, left knee] 87-17-9515EeljwljbPgati non-traumatic joint disorders (4 sources)Pain in left knee; Translations: [Pain in joint, lower leg]12-09-2024 EpisodicOther nutritional; endocrine; and metabolic disorders (2 sources)Overweight in adulthood with body mass index of 25 or more but less than 3616-86-3788OohgbnalSywko screening for suspected conditions (not mental disorders or infectious disease) (1 source)Abnormal findings on diagnostic imaging of other specified body structures; Translations: [ABNORML FIND DX IMG OTH BODY STRUC]Onset: 08-01-2022 ChronicOther screening for suspected conditions (not mental disorders or infectious disease) (4 sources)Electrocardiogram abnormal; Translations: [Abnormal electrocardiogram [ECG] [EKG]]73-06-9112LuvpimlxQvydz skin disorders (4 sources)Seborrheic keratosis; Translations: [Other seborrheic keratosis] 12-01-5858NysfirzkBskex skin disorders (8 sources)Actinic keratosis; Translations: [Actinic keratosis]05-26-2024 EpisodicOther skin disorders (2 sources)Inflamed seborrheic keratosis; Translations: [Inflamed seborrheic keratosis]77-98-6574WppxwxhsXjjbw upper respiratory disease (1 source)Unspecified voice and resonance disorder; Translations: [UNS VOICE AND RESONANCE DISORDER]Onset: 91-66-7680OfteyhdkCamvwgvvbc and visceral atherosclerosis (2 sources)Arteriosclerotic vascular nevrsxr95-10-7562WpvwhmvAlgcrkxjgf arthritis and related disease (2 sources)Rheumatoid arthritis; Translations: [Rheumatoid arthritis, unspecified]00-15-5089YwnusnlEzdqgywks malignancies (20 sources)Secondary malignant neoplasm of lymph nodes of neck; Translations: [Secondary and unspecified malignant neoplasm of lymph nodes of head, face and neck]Onset: 045908-13-5498AqipdtpXmuqvxkig malignancies (2 sources)Metastasis to head and neck lymph node; Translations: [Secondary and unspecified malignant neoplasmof lymph nodes of head, face and neck]08-31-2024 ChronicSpondylosis; intervertebral disc disorders; other back problems (20 sources)Cervical spondylosis without myelopathy; Translations: [Spondylosis without myelopathy or radiculopathy, cervical region]Onset: ChronicSpondylosis; intervertebral disc disorders; other back problems (10 sources)Torticollis; Translations: [Torticollis]89-92-0351HtqbdayfWunpdlp disorders (7 sources)Iodine-deficiency related diffuse (endemic) goiter; Translations: [Acquired hypothyroidism]Onset: 86-30-3517VeybxgzCxrlusoazrtb (1 source)CONTACT W/AND (SUSP) EXPOS COVID-19; Translations: [CONTACT W/AND (SUSP) EXPOS COVID-19]Onset: 08-01-2022 Past or Other Problems Problem ClassificationProblemDateDocumented DateEpisodic/ChronicCancer of colon (20 sources)History of malignant neoplasm of colon; Translations: [Personal history of other malignant neoplasmof large intestine]Onset: 06-13-2022 Resolved: 28-48-7426JiiyabzjQnnsnxvr mellitus without complication (20 sources)Type 2 diabetes mellitus; Translations: [Type 2 diabetes mellitus without complications]Onset: 02-27-2022 Resolved: 924417-60-5720UlakddhAenpq disorders and dislocations; trauma-related (20 sources)Dislocation of acromioclavicular joint; Translations: [Unspecified dislocation of right acromioclavicular joint, initial encounter]Onset: 159418-88-7168QlwyzoqlSbnd disorders (20 sources)Mood disordersOnset: 272054-57-3869Axglyploise deficiencies (20 sources)Vitamin D deficiency; Translations: [Vitamin D deficiency, unspecified]Onset: 01-15-2023 Resolved: 234430-27-7928MuxxetvHkrem and unspecified benign neoplasm (20 sources)History of polyp of colon; Translations: [Personal history of colonic polyps]Onset: 06-13-2022 Resolved: 96-09-0640ZglvxhshBonsb circulatory disease (20 sources)Raynaud's disease; Translations: [Raynaud's syndrome without gangrene]Onset: 01-15-2023 Resolved: 739925-17-7657DqgqcdzOahuu connective tissue disease (20 sources)Diastasis recti; Translations: [Separation of muscle (nontraumatic), other site]Onset: 01-15-2023 Resolved: 958047-37-1235KqjnunckZfwdf connective tissue disease (20 sources)Muscle spasm of cervical muscle of neck; Translations: [Other muscle spasm]Onset: 547181-07-7212PtmzqoesOigai lower respiratory disease (1 source)Other nonspecific abnormal finding of lung field; Translations: [Lung nodules]Onset: 50-69-3696MqoqwhvbQcsei male genital disorders (20 sources)Disorder of prostate; Translations: [Disorder of prostate, unspecified]Onset: 01-15-2023 Resolved: 253671-43-6525OlunoejuMpsye male genital disorders (1 source)Disorder of prostate, unspecified; Translations: [DISORDER OF PROSTATE UNSPECIFIED]Onset: 61-37-7368OxadkxlfUvbzq non-epithelial cancer of skin (20 sources)Basal cell carcinoma of face; Translations: [Basal cell carcinoma of skin of unspecified parts of face]Onset: 12-15-2022 Resolved: 544139-40-8376OofxfatwSrnka non-traumatic joint disorders (20 sources)Pain in right shoulder; Translations: [Pain in joint, shoulder region]Onset: 12-15-2022 Resolved: 002314-58-7425XpcguhptRhpzn nutritional; endocrine; and metabolic disorders (20 sources)Disorder of carbohydrate metabolism; 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, unspecified]Onset: 01-15-2023 Resolved: 540035-83-4835TpvoxsdXuaof nutritional; endocrine; and metabolic disorders (20 sources)Overweight; Translations: [Overweight]Onset: 12-15-2022 Resolved: 999827-75-4812XrqvgzwjGayus skin disorders (20 sources)Lesion of face; Translations: [Disorder of the skin and subcutaneous tissue, unspecified]Onset: 032295-89-7852WcwyjupgSzwcumz disorders (2 sources)Disorder of thyroid gland; Translations: [Other specified disorders of thyroid]Onset: 396566-00-1002Lelzgrgv Results Test NameValueInterpretationReference RangeFacilityCBC W Auto Differential panel (Bld)on 75-10-9610Ibuempizj (Bld) [#/Vol]0.05 10*3/uLNormal<0.11CSheltering Arms Hospital on above:Order Comment: Specimen Type: BLOOD SPECIMENOrdering Facility: [facility] Address:[address] [place] [address]Ddrxggwst By: #### [id number] ####[facility]ENTERJERMAINE [facility] LABCLIA [id number] [place], [place] [address]Lohqtsima/100 WBC (Bld)0.9 % NormalElyria Memorial Hospital on above:Order Comment: Specimen Type: BLOOD SPECIMENOrdering Facility: [facility] Address:[address] [place], [place] [address]Performed By: #### [id number] ####[facility] LABIA [id number] [place] [address] Differential cell count method Nom (Bld)AutoNormalClevelFormerly [facility] Comment on above:Order Comment: Specimen Type: BLOOD SPECIMENOrdering Facility: [facility] Address:[address] [place] [address] Performed By: #### [id number] ####[facility] LABCLIA [id number] [place], [place] [address]Ufybmpxzlcp (Bld) [#/Vol]0.08 10*3/uLNormal<0.46[facility] HospitalComformerly [facility] on above:Order Comment: Specimen Type: BLOOD SPECIMENOrdering Facility: [facility] Address:[address] [place], [place] [address]Performed By: #### 95046-9 ####[facility] LABIA [id number] [place], [place] [address]Crmeriejjpn/100 WBC (Bld)1.4 %NormalMercy Health Defiance HospitalComment on above:Order Comment: Specimen Type: BLOOD SPECIMENOrdering Facility: [facility] Address:[address] [place], [place] [address]Performed By: #### [id number] ####[facility] LABIA [id number] [place], [place] [address]Ggheqvhnoca distribution width (RBC) [Ratio]14.5 %Unkhgf62.5-15.0[facility] on above: Order Comment: Specimen Type: BLOOD SPECIMENOrdering Facility: [facility] Address:[address] [place], [place] [address]Performed By: #### 81858- 8 ####[facility] LABIA [id number] [place], [place] [address]Gjbilncvoy (Bld) [Volume fraction]40.3 %Jnpwod60.0-51.0 [facility] on above:Order Comment: Specimen Type: BLOOD SPECIMENOrdering Facility: [facility] Address:[address] [place], [place] [address]Performed By: #### [id number] ####[facility] LABIA [id number] [place], [place] [address]Ftwhdvgsgi (Bld) [Mass/Vol]13.2 g/zVHyvlbw11.0-17.0[facility] on above: Order Comment: Specimen Type: BLOOD SPECIMENOrdering Facility: [facility] Address:[address] [place], [place] [address]Performed By: #### 26845- 8 ####[facility] LABIA [id number] [place], [place] [address]Lasuxmdl granulocytes (Bld) [#/Vol]0.05 10*3/uLNormal <0.10[facility] on above:Order Comment: Specimen Type: BLOOD SPECIMENOrdering Facility: [facility] Address:[address] [place], [place] [address]Performed By: #### 07975-8 ####[facility] LABIA [id number] [place], [place] [address]Qgympnro granulocytes/100 WBC (Bld)0.9 %NormalElyria Memorial [facility] on above: Order Comment: Specimen Type: BLOOD SPECIMENOrdering Facility: [facility] Address:[address] [place], [place] [address]Performed By: #### 01956- 8 ####[facility] LABIA [id number] [place], [place] [address]Kxfjlvjojcr (Bld) [#/Vol]0.58 10*3/uLLow1.00-4.00 [facility] on above:Order Comment: Specimen Type: BLOOD SPECIMENOrdering Facility: [facility] Address:[address] [place], [place] [address]Performed By: #### 94929-7 ####[facility] LABIA [id number] [place], [place] [address]Xveurtitnlq/100 WBC (Bld)9.9 %NormalElyria Memorial Hospital on above:Order Comment: Specimen Type: BLOOD SPECIMENOrdering Facility: [facility] Address:[address] [place], [place] [address]Performed By: #### 87615-5 ####[facility] LABCLIA [id number] [place], [place] [address]XYE (RBC) [Entitic mass]29.3 voCktrld56.0-34.0[facility] on above:Order Comment: Specimen Type: BLOOD SPECIMENOrdering Facility: [facility] Address:[address] [place], [place] [address]Performed By: #### 66828-3 ####[facility] LABCLIA [id number] [place], [place] [address]BRDS (RBC) [Mass/Vol]32.8 g/hOTptlwg06.5-36.0[facility] on above: Order Comment: Specimen Type: BLOOD SPECIMENOrdering Facility: [facility] Address:[address] [place], [place] [address]Performed By: #### 19005- 8 ####[facility] LABCLIA [id number] [place], [place] [address]FQJ (RBC) [Entitic vol]89.6 pYWjsigp50.0-100.0[facility] on above:Order Comment: Specimen Type: BLOOD SPECIMENOrdering Facility: [facility] Address:[address] [place], [place] [address]Performed By: #### 31450-8 ####[facility] LABIA [id number] [place], [place] [address]Pllsthojh (Bld) [#/Vol]0.46 10*3/uLNormal<0.87[facility] on above:Order Comment: Specimen Type: BLOOD SPECIMENOrdering Facility: [facility] Address:[address] [place], [place] [address]Performed By: #### 69059- 8 ####[facility] LABCLIA [id number] [place], [place] [address]Ubzqydpwu/100 WBC (Bld)7.8 %NormalElyria Memorial Hospital on above:Order Comment: Specimen Type: BLOOD SPECIMENOrdering Facility: [facility] Address:[address] [place], [place] [address]Performed By: #### 92374-8 ####[facility] LABCLIA [id number] [place], [place] [address]Nfdphjccvkx (Bld) [#/Vol]4.66 10*3/uLNormal1.45-7.50[facility] on above:Order Comment: Specimen Type: BLOOD SPECIMENOrdering Facility: [facility] Address:[address] [place], [place] [address]Performed By: #### 68539-7 ####[facility] LABCLIA [id number] [place], [place] [address]Pcmhjmontzt/100 WBC (Bld)79.1 %NormalElyria Memorial Hospital on above:Order Comment: Specimen Type: BLOOD SPECIMENOrdering Facility: [facility] Address:[address] [place], [place] [address]Performed By: #### 20048-5 ####[facility] LABIA [id number] [place], [place] [address]Gsluyihdh RBC (Bld) [#/Vol] 10*3/uLNormal<0.01[facility] on above:Order Comment: Specimen Type: BLOOD SPECIMENOrdering Facility: [facility] Address:[address] [place], [place] [address]Performed By: #### 98387-3 ####[facility] LABCLIA [id number] [place], [place] [address]Iodpbqhqn RBC/100 WBC (Bld) [Ratio]0.0 /100 WBCNormal [facility] on above:Order Comment: Specimen Type: BLOOD SPECIMENOrdering Facility: [facility] Address:[address] [place], [place] [address]Performed By: #### 11404-0 ####[facility] LABCLIA [id number] [place], [place] [address]Gwlczqbk mean volume (Bld) [Entitic vol]9.8 fLNormal9.0-12.7CShel[facility] on above:Order Comment: Specimen Type: BLOOD SPECIMENOrdering Facility: [facility] Address:[address] [place] [address] Performed By: #### 83196-7 ####[facility] LABCLIA [id number] [place], [place] [address]Zzetfkhcz (Bld) [#/Vol]255 10*3/jJQxomou829-192HcyiqrocwElyria Memorial Hospital on above:Order Comment: Specimen Type: BLOOD SPECIMENOrdering Facility: [facility] Address:[address] [place], [place] [address]Performed By: #### 00391-9 ####[facility] LABCLIA [id number] [place], [place] [address]IHJ (Bld) [#/Vol]4.50 10*6/uLNormal4.20-6.00[facility] on above:Order Comment: Specimen Type: BLOOD SPECIMENOrdering Facility: [facility] Address:[address] [place], [place] [address]Performed By: #### 73635-3 ####[facility] LABCLIA [id number] [place], [place] [address]HQU (Bld) [#/Vol]5.88 10*3/uLNormal3.70-11.00[facility] on above: Order Comment: Specimen Type: BLOOD SPECIMENOrdering Facility: [facility] Address:[address] [place], [place] [address]Vjamxdars By: #### 25594- 8 ####[facility] LABCLIA [id number] [place], [place] [address]GBC APTTon 72-86-6403cBRN Coag (Bld) [Time]29.8 sNOMS HealthcareCCF CMP (CMP) (FOR REMOTE [facility] USE)on 85-72-5013Fgxsmyu [Mass/Vol]3.8 g/dL3.4 - 5.0 g/dLNOMS HealthcareALBUMIN GLOBULIN [...] 2NOMS HealthcareGlobulin (S) [Mass/Vol]3.9 g/dLNOMS HealthcareGlucose [Mass/Vol]222 mg/gNTmtz63 - 106 mg/dLNOMS HealthcareInterpretation and review of laboratory resultsAbnormalNOMS HealthcarePotassium [Moles/Vol]4.1 mmol/L3.5 - 5.1 mmol/L [facility] HealthcareProtein [Mass/Vol]7.7 g/dL6.4 - 8.2 g/dLNOMS HealthcareSodium [Moles/Vol]139 mmol/L136 - 145 mmol/LNOMS HealthcareTBH EGFR-NON AF VEHOKZJJ57 Low>=60 mL/min/1.73m 2NOMS HealthcareUrea nitrogen [Mass/Vol]16.0 mg/dL7.0 - 18.0 mg/dLNOMS HealthcareUrea nitrogen/Creatinine [Mass ratio]13.6 mg/mgNOMS HealthcareCLINISYNCNOMS HealthcareCT CHEST W IVCONon 52-29-6867RS CHEST W IVCON* * *Final Report* * * DATE OF EXAM: Apr 29 2025 10:27AM [facility] 0539 - CT CHEST W [...] any questions regarding this interpretation, please call [phone]. If you are unable to reach us at the number above, please feel free to contact [facility] eRadiology at [phone]. [id number] Hospital NECK SOFT TISSUE W IVCONon 94-93-9263VK NECK SOFT TISSUE W IVCON* * *Final Report* * * DATE OF EXAM: Apr 29 2025 10:27AM [facility] 0013 - CT NECK SOFT [...] any questions regarding this interpretation, please call [phone]. If you are unable to reach us at the number above, please feel free to contact [facility] eRadiology at [phone]. [id number] Health Defiance HospitalComprehensive metabolic 2000 panelon 25-95-8281Mgrxrmy [Mass/Vol]4.2 g/dLNormal3.9-4.9CAvita Health SystemComment on above:Order Comment: Specimen Type: BLOOD SPECIMENOrdering Facility: [facility] Address:[address] [place], [place] [address]Performed By: #### 02008-2 ####[facility] LABCLIA [id number] [place] [address]PBE [Catalytic activity/Vol]95 U/KHrgcmx53-301DatpjemxqElyria Memorial Hospital on above:Order Comment: Specimen Type: BLOOD SPECIMENOrdering Facility: [facility] Address:[address] [place], [place] [address]Performed By: #### 56929-1 ####[facility] LABCLIA [id number] [place] [address]FQR [Catalytic activity/Vol]17 U/BGiwkkp15-67QuyzfymbjElyria Memorial Hospital on above:Order Comment: Specimen Type: BLOOD SPECIMENOrdering Facility: [facility] Address:[address] [place], [place] [address]Performed By: #### 82547-9 ####[facility] LABCLIA [id number] [place], [place] [address]Agiin gap [Moles/Vol]13 mmol/LNormal8-15[facility] on above:Order Comment: Specimen Type: BLOOD SPECIMENOrdering Facility: [facility] Address:[address] [place], [place] [address]Performed By: #### 54328- 8 ####[facility] LABCLIA [id number] [place] [address]GBP [Catalytic activity/Vol]15 U/ZLyiknp62-43NpoxsfwptElyria Memorial Hospital on above:Order Comment: Specimen Type: BLOOD SPECIMENOrdering Facility: [facility] Address:[address] [place], [place] [address]Performed By: #### 28793-4 ####[facility] LABIA [id number] [place] [facility]IMAWICK[facility] [place], [place] [address]Kuwulvazw [Mass/Vol]0.5 mg/dLNormal0.2-1.3CSheltering Arms Hospital on above:Order Comment: Specimen Type: BLOOD SPECIMENOrdering Facility: [facility] Address:[address] [place], [place] [address]Performed By: #### 16289- 8 ####[facility] LABCLIA [id number] [facility] [place], [place] [address]Kwhndjb [Mass/Vol]10.2 mg/dLNormal8.5-10.2CSheltering Arms Hospital on above:Order Comment: Specimen Type: BLOOD SPECIMENOrdering Facility: [facility] Address:[address] [place], [place] [address]Performed By: #### 97434-6 ####[facility] LABCLIA [id number] [place], [place] [address]Temvzcgw [Moles/Vol]103 mmol/DFhoghh74-477AsyjqmjymElyria Memorial Hospital on above: Order Comment: Specimen Type: BLOOD SPECIMENOrdering Facility: [facility] Address:[address] [place], [place] [address]Performed By: #### 56081- 8 ####[facility] LABCLIA [id number] [place], [place] [address]KO4 [Moles/Vol]26 mmol/LKtepgf72-10CejqljyosElyria Memorial Hospital on above:Order Comment: Specimen Type: BLOOD SPECIMENOrdering Facility: [facility] Address:[address] [place], [place] [address]Performed By: #### 81438-6 ####[facility] LABCLIA [id number] [place], [place] [address]Xiwysiqptj [Mass/Vol]1.07 mg/dL Normal0.73-1.22[facility] on above:Order Comment: Specimen Type: BLOOD SPECIMENOrdering Facility: [facility] Address:[address] [place], [place] [address]Performed By: #### 66963-3 ####[facility] LABCLIA [id number] [facility] [place], [place] [address]vAUVqb SerPlBld CKD-EPI 607672 mL/min/1.73m???Normal>=60 [facility] on above:Order Comment: Specimen Type: BLOOD SPECIMENOrdering Facility: [facility] Address:[address] [place], [place] [address]Xroqcb Comment: Estimated Glomerular Filtration Rate (eGFR) is calculated using the 2020 CKD-EPI creatinine equation. This equation utilizes serum creatinine, sex, and age as parameters. The creatinine assay has traceable calibration to isotope dilution-mass spectrometry. Refer to KDIGO guidelines for clinical interpretation. In patients with unstable renal function, e.g. those with acute kidney injury, the eGFR may not accurately reflect actual GFR.Performed By: #### 32908-5 ####[facility] LABCLIA [id number] [place], [place] [address]Spprpxp [Mass/Vol]198 mg/iTPcre50-57OuaexnejwElyria Memorial Hospital on above:Order Comment: Specimen Type: BLOOD SPECIMENOrdering Facility: [facility] Address:[address] [place] [address]Zcsjyd Comment: The Stateless Diabetes Association (ADA) provides guidance for cutoff [...] Standards of Medical Care in Diabetes 2016, Stateless Diabetes Association. Diabetes Care. 2016.39(Suppl 1).Performed By: #### 41195-1 ####[facility] LABCLIA [id number] [place], [place] [address]Tgawnnelw [Moles/Vol]4.5 mmol/LNormal3.7-5.1CSheltering Arms Hospital on above:Order Comment: Specimen Type: BLOOD SPECIMENOrdering Facility: [facility] Address:[address] [place], [place] [address]Voiekpjly By: #### 39189-8 ####[facility] LABCLIA [id number] [place], [place] [address]Rhptkqo [Mass/Vol]7.1 g/dLNormal6.3-8.0[facility] on above:Order Comment: Specimen Type: BLOOD SPECIMENOrdering Facility: [facility] Address:[address] [place], [place] [address]Performed By: #### 66702- 8 ####[facility] LABCLIA [id number] [place], [place] [address]Imyxgs [Moles/Vol]142 mmol/RZjxczl548-789HossgrbtyElyria Memorial Hospital on above:Order Comment: Specimen Type: BLOOD SPECIMENOrdering Facility: [facility] Address:[address] [place], [place] [address]Performed By: #### 27613-9 ####[facility] LABCLIA [id number] [place], [place] [address]Jspu nitrogen [Mass/Vol]17 mg/dLNormal9-24[facility] on above:Order Comment: Specimen Type: BLOOD SPECIMENOrdering Facility: [facility] Address:[address] [place], [place] [address]Performed By: #### 00372-4 ####[facility] LABCLIA [id number] [place], [place] [address]JDU 12-LEADon 75-69-4216KsqRobert [place] [address] Electrocardiograph Report Signed Patient: MANISH ROOT MR#: [id number] : 1945 Acct:[id number] Age/Sex: 79 / M ADM Date: 04/29/25 Loc: LAB Attending Dr: Mechelle Boyer D.O. Ordering Physician: Mechelle Boyer D.O. Date of Service: 04/29/25 Procedure(s): ECG 12 lead Accession Number(s): [id number] cc: [facility] Test Date: 2025-04-29 Pat Name: MANISH ROOT Department: Room: - Gender: Male Resolution Analyst: : 1945 Requested By: MASON JOHNSON Order Number: [id number] Reading MD: MECHELLE SCHMIDT M.D. Measurements Intervals [place] Rate: 84 P: NE: QRS: -10 QRSD: 114 T: 54 QT: [...] SCHMIDT Signed By: 04/29/25191904/29/251919 DD/ 1239 TD/TT: Event Promoter:TBHRadiology, Radiologist, MD - 04/29/2025 [place] [address] Electrocardiograph Report Signed Patient: MANISH ROOT MR#: [id number] : 1945 Acct:[id number] Age/Sex: 79 / M ADM Date: 04/29/25 Loc: LAB Attending Dr: Mechelle Boyer D.O. Ordering Physician: Mechelle Boyer D.O. Date of Service: 04/29/25 Procedure(s): ECG 12 lead Accession Number(s): [id number] cc: [facility] Test Date: 2025-04-29 Pat Name: MANISH ROOT Department: Room: - Gender: Male Resolution Analyst: : 1945 Requested By: MASON JOHNSON Order Number: [id number] Lanette MD: MECHELLE SCHMIDT M.D. Measurements Intervals [place] Rate: 84 P: NE: QRS: -10 QRSD: 114 T: 54 QT: [...] SCHMIDT Signed By: 04/29/25191904/29/251919 DD/ 1239 TD/TT: Event Promoter: [facility] HealthcareRadiology Study observation (narrative)NOMS HealthcareECG 12-LEAD Ordered By: Radiologist Radiology on 04-50-5165[facility] Work Phone: no Panel Informationon 29-07-0780CIVONADRADKIF HealthcareSRMCOH PROTHROMBIN TIME INR W/O COUMon 80-01-4298RE Coag (PPP) [Time] 11.3 sNOMS HealthcareTBH INR1.07[facility] HealthcareComment on above:DESIRED INR: 2.0-3.0 CONDITIONS NOT LISTED BELOW 2.5-3.5 FOR PROSTHETIC HEART VALVE REPLACEMENT 2.5-3.5 RECURRENT THROMBOSIS TSH SerPl-aCncon 59-38-9201JBR Qn2.760 m[IU]/LNormal0.270-4.200[facility]iance HospitalComment on above:Order Comment: Specimen Type: BLOOD SPECIMENOrdering Facility: [facility] Address:[address] [place], [place] [address]Performed By: #### 3016-3 ####[facility] LABCLIA [id number] [place] [address] [place] AMERICAUrine Cultureon 29-34-4766Mxrmmjyn identified Cx Nom (U)No Growth 2 Days PERFORMED BY: [address] [place] [address] PATHOLOGIST STATISTICAL TECHNICIAN INESSA AREVALO M.D.NormalThe [facility] Physician GroupComment on above: Performed By: #### CUU #### [facility] [address] [place] [address] USAXR Hip - left Single viewon 57-43-4222Hz[address] [address] XRay Report Signed Patient: MANISH ROOT MR#: [id number] : 1945 Acct:[id number] Age/Sex: 79 / M ADM Date: 04/29/25 Loc: LAB Attending Dr: Mechelle Boyer D.O. Ordering Physician: Mechelle Boyer D.O. Date of Service: 04/29/25 Procedure(s): XR hip LT 1V w/ pelvis Accession Number(s): [id number] cc: MASON JOHNSON ; eMchelle Boyer D.O. The [address] [address] Patient Name: MANISH ROOT MRN: [id number] date: 1945 Sex: M Assigned Patient Location: LAB Current Patient Location: LAB Accession/Order Number: [id number] Exam Date: 04/29/2025 12:41 Report Date: 04/29/2025 [...] Rosales M.D. 04/29/2025 6:23 PM Dictation Location: [place] [address] Electronically authenticated by: [id number] Y Date: 04/29/2025 18:23 Dictated By: Hernandez Rosales M.D. Signed By: 04/29/251824 DD/ 22 TD/TT: Event Promoter:TBHRadiology, Radiologist, - 04/30/2025 The [place] 0596111 XRay Report Signed Patient: MANISH ROTO MR#: [id number] : 1945 Acct:[id number] Age/Sex: 79 / M ADM Date: 04/29/25 Loc: LAB Attending Dr: Mechelle Boyer D.O. Ordering Physician: Mechelle Boyer D.O. Date of Service: 04/29/25 Procedure(s): XR hip LT 1V w/ pelvis Accession Number(s): [id number] cc: MASON JOHNSON ; Mechelle Boyer D.O. [address] [address] Patient Name: MANISH ROOT MRN: [id number] date: 1945 Sex: M Assigned Patient Location: LAB Current Patient Location: LAB Accession/Order Number: [id number] Exam Date: 04/29/2025 12:41 Report Date: 04/29/2025 [...] Rosales M.D. 04/29/2025 6:23 PM Dictation Location: [place] [address] Electronically authenticated by: [id number] Y Date: 04/29/2025 18:23 Dictated By: Hernandez Rosales M.D. Signed By: 04/29/251824 DD/ 22 TD/TT: Event Promoter: [facility] HealthcareRadiology Study observation (narrative)[facility] HealthcareXR Hip - left Single viewOrdered By: Radiologist Radiology on 26-43-8566[facility] Work Phone: XR Hip - left 3 Viewson 28-71-9844Peqwgcv Result: Multiple views of left hip showed [...] to severe degenerative joint disease, left hipNOSaint John's Health System HealthcareRadiology Study observation (narrative)NOMS HealthcareALBUMIN, RANDOM URINE W/CREATININEon 03-27-2025 ALBUMIN, URINE0.8 mg/dLNormalSee Note:Quest DiagnosticsComment on above:Result Comment: Reference Range: Reference Range Not establishedPerformed By: #### 6517, 7600, 14622 #### [facility] [address], [address] [place] [address] Wind Turbine Machinist: Maged Olson MDALBUMIN/CREATININE RATIO, RANDOM URINE11 mg/g [...] a diagnostic category.Performed By: #### 6517, 7600, 32311 #### [facility] [place] [address] Wind Turbine Machinist: Maged FORDreatinine (U) [Mass/Vol]71 mg/yFUkcknh93-420 [facility] DiagnosticsComment on above:Performed By: #### 6517, 7600, 24601 #### [facility] [place] [address] Wind Turbine Machinist: Maged Olson [facility] DURANTOMPREHENSIVE METABOLIC PANELon 03-27-2025 Albumin [Mass/Vol]4.0 g/dLNormal3.6-5.1Quest DiagnosticsComment on above: Performed By: #### 6517, 7600, 12649 #### [facility] of [address], [address] [place] [address] Wind Turbine Machinist: Maged Olson MDAlbumin/Globulin [Mass ratio]1.6 {ratio}Normal 1.0-2.5Quest DiagnosticsComment on above:Performed By: #### 6517, 7600, 21998 #### [facility] of [address], [address] [place] [address] Wind Turbine Machinist: Maged Olson MDALP [Catalytic activity/Vol]73 U/GAuutkc83-748 [facility] DiagnosticsComment on above:Performed By: #### 6517, 7600, 93550 #### [facility] of [address], [address] [place] [address] Wind Turbine Machinist: Maged Olson MDALT [Catalytic activity/Vol]49 U/LHigh9-46 [facility] DiagnosticsComment on above:Performed By: #### 6517, 0, 90579 #### [facility] of [address], [address] [place] [address] Wind Turbine Machinist: Maged Olson MDAST [Catalytic activity/Vol]29 U/DDxflou52-39 Quest DiagnosticsComment on above:Performed By: #### 6517, 7600, 73453 #### [facility] of [address], [address] [place] [address] Wind Turbine Machinist: Maged Olson MDBilirubin [Mass/Vol]1.0 mg/dLNormal0.2-1.2 Quest DiagnosticsComment on above:Performed By: #### 6517, 7600, 20425 #### [facility] of [place] [address] Wind Turbine Machinist: Maged Olson MDCalcium [Mass/Vol]9.1 mg/dLNormal8.6-10.3Quest DiagnosticsComment on above:Performed By: #### 6517, 7600, 26280 #### [facility] of [address], [address] [place] [address] Wind Turbine Machinist: Maged Olson MDChloride [Moles/Vol]102 mmol/LXlpkyc78-086 Quest DiagnosticsComment on above:Performed By: #### 6517, 7600, 81953 #### [facility] [address], [address] [place] [address] Wind Turbine Machinist: Maged Olson MDCO2 [Moles/Vol]27 mmol/GJeubde15-36Gwnkk DiagnosticsComment on above:Performed By: #### 6517, 7600, 56681 #### [facility] [place] [address] Wind Turbine Machinist: Maged FORDreatinine [Mass/Vol]1.28 mg/dLHigh0.70-1.22 Quest DiagnosticsComment on above:Performed By: #### 6517, 7600, 43244 #### [facility] [address], [address] [place] [address] Wind Turbine Machinist: Maged Olson MDGFR/1.73 sq M.predicted among non-blacks MDRD (S/P/Bld) [Vol rate/Area]56 mL/min/{1.73_m2}Low> OR = 60Quest DiagnosticsComment on above:Performed By: #### 6517, 7600, 70987 #### [facility] [place] [address] Wind Turbine Machinist: Maged Olson MDGlobulin (S) [Mass/Vol]2.5 g/dLNormal1.9-3.7 Quest DiagnosticsComment on above:Performed By: #### 6517, 7600, 96716 #### [facility] [place] [address] Wind Turbine Machinist: Maged Olson MDGlucose [Mass/Vol]183 mg/lUKues58-76Wkucc DiagnosticsComment on above:Result Comment: Fasting reference interval For someone without known diabetes, a glucose value >125 mg/dL indicates that they may have diabetes and this should be confirmed with a follow-up test.Performed By: #### 6517, 7600, 90232 #### [facility] [place] [address] Wind Turbine Machinist: Maged Olson MDPotassium [Moles/Vol]4.3 mmol/LNormal3.5-5.3 Quest DiagnosticsComment on above:Performed By: #### 6517, 7600, 26439 #### [facility] [address], [address] [place] [address] Wind Turbine Machinist: Maged Olson MDProtein [Mass/Vol]6.5 g/dLNormal6.1-8.1Quest DiagnosticsComment on above:Performed By: #### 6517, 7600, 69586 #### [facility] [place] [address] Wind Turbine Machinist: Maged Olson MDSodium [Moles/Vol]139 mmol/GMpzymp517-502Agrrj DiagnosticsComment on above:Performed By: #### 6517, 7600, 95588 #### [facility] [place] [address] Wind Turbine Machinist: Maged Olson MDUrea nitrogen [Mass/Vol]17 mg/dLNormal7-25 Quest DiagnosticsComment on above:Performed By: #### 6517, 7600, 69994 #### [facility] of [place] [address] Wind Turbine Machinist: Maged Olson MDUrea nitrogen/Creatinine [Mass ratio]13 mg/mg Normal6-22Quest DiagnosticsComment on above:Performed By: #### 6517, 7600, 26328 #### [facility] of [place] [address] Wind Turbine Machinist: Maged Olson MDLIPID PANEL, STANDARDon 32-36-9648Ybynlreluno [Mass/Vol]152 mg/dLNormal<200Quest DiagnosticsComment on above:Order Comment: FASTING:YES FASTING: YESPerformed By: #### 6517, 7600, [id number] #### [facility] [address], [address] [place] [address] [employer]: Maged Olson MDCholesterol in HDL [Mass/Vol]54 mg/dLNormal> OR = 40Quest DiagnosticsComment on above:Order Comment: FASTING:YES FASTING: YESPerformed By: #### [id number], 7600, [id number] #### [facility] [address], [address] [place] [address] [employer]: Maged FORDholesterol in LDL [Mass/Vol]82 mg/dLNormal [facility] [...] LDL-C. [place] GAN et al. TITI. 2013;310(19): 4567-6063 (http://education.[employer]/faq/QOC655)Performed By: #### 6517, 7600, [id number] #### [facility] [address], [address] [place] [address] [employer]: Maged Dumont.total/Cholesterol in HDL [Mass ratio]2.8 {ratio}Normal<5.0Quest DiagnosticsComment on above:Order Comment: FASTING:YES FASTING: YESPerformed By: #### 6517, 7600, [id number] #### [facility] [address], [address] [place] [address] Wind Turbine Machinist: Maged WATERS HDL QDTOTDDVBUY56 mg/dL (calc)Normal<130 [facility]osticsComment on above:Order Comment: FASTING:YES FASTING: YESResult Comment: For patients with diabetes plus 1 major ASCVD risk factor, treating to a non-HDL-C goal of <100 mg/dL (LDL-C of <70 mg/dL) is considered a therapeutic option.Performed By: #### 6517, 7600, 89498 #### [facility] [address], [address] [place] [address] Wind Turbine Machinist: Maged Olson MDTriglyceride [Mass/Vol]82 mg/dLNormal<150Quest DiagnosticsComment on above:Order Comment: FASTING:YES FASTING: YESPerformed By: #### 6517, 7600, 89189 #### [facility] [address], [address] [place] [address] Wind Turbine Machinist: Maged Olson MDMR Hip - left WO contraston 79-34-1933Q[address] [address] Magnetic Resonance Report Signed Patient: MANISH ROOT MR#: [id number] : 1945 Acct:[id number] Age/Sex: 79 / M ADM Date: 03/12/25 Loc: MRI Attending Dr: MASON JOHNSON Ordering Physician: MASON JOHNSON Date of Service: 03/12/25 Procedure(s): MR hip LT wo con Accession Number(s): [id number] cc: MASON JOHNSON [address] [address] Patient Name: MANISH ROOT MRN: [id number] date: 1945 Sex: M Assigned Patient Location: MRI Current Patient Location: MRI Accession/Order Number: [id number] Exam Date: 03/12/2025 10:00 Report Date: 03/12/2025 [...] Burnett M.D. 03/12/2025 3:44 PM Dictation Location: [place] [address] Electronically authenticated by: [id number] Y Date: 03/12/2025 15:44 Dictated By: El Burnett M.D. Signed By: 03/12/25 1546 DD/ 1544 TD/TT: Event Promoter:TBHRadiology, Radiologist, - 03/12/2025 [place] [address] Magnetic Resonance Report Signed Patient: MANISH ROOT MR#: [id number] : 1945 Acct:[id number] Age/Sex: 79 / M ADM Date: 03/12/25 Loc: MRI Attending Dr: MASON JOHNSON Ordering Physician: MASON JOHNSON Date of Service: 03/12/25 Procedure(s): MR hip LT wo con Accession Number(s): [id number] cc: MASON JOHNSON [place] [address] Patient Name: MANISH ROOT MRN: [id number] date: 1945 Sex: M Assigned Patient Location: MRI Current Patient Location: MRI Accession/Order Number: [id number] Exam Date: 03/12/2025 10:00 Report Date: 03/12/2025 [...] Burnett M.D. 03/12/2025 3:44 PM Dictation Location: [place] [address] Electronically authenticated by: [id number] Y Date: 03/12/2025 15:44 Dictated By: El Burnett M.D. Signed By: 03/12/25 1546 DD/ 1544 TD/TT: Event Promoter: QUIANA HealthcareRadiology Study observation (narrative)QUIANA HealthcareMR Hip - left WO contrastOrdered By: Radiologist Radiology on 93-56-1522NHKE Petbrosia Work Phone: XR LUMBAR SPINE 2 OR 3Von 46-91-5046[place] [address] XRay Report Signed Patient: MANISH ROOT MR#: [id number] : 1945 Acct:[id number] Age/Sex: 79 / M ADM Date: 12/28/24 Loc: [facility] Attending Dr: MASON JOHNSON Ordering Physician: MASON JOHNSON Date of Service: 12/28/24 Procedure(s): XR lumbar spine 2-3V Accession Number(s): [id number] cc: MASON JOHNSON [address] [address] Patient Name: MANISH ROOT MRN: [id number] date: 1945 Sex: M Assigned Patient Location: [facility] Current Patient Location: [facility] Accession/Order Number: [id number] Exam Date: 12/28/2024 16:30 Report Date: 12/28/2024 [...] Burnett M.D. 12/28/2024 4:31 PM Dictation Location: [place] [address] Electronically authenticated by: [id number] Y Date: 12/28/2024 16:31 Dictated By: El Burnett M.D. Signed By: 12/28/24 1634 DD/ 1631 TD/TT: Event Promoter:TBHRadiology, Radiologist, - 12/28/2024 [place] [address] XRay Report Signed Patient: MANISH ROOT MR#: [id number] : 1945 Acct:[id number] Age/Sex: 79 / M ADM Date: 12/28/24 Loc: [facility] Attending Dr: MASON JOHNSON Ordering Physician: MASON JOHNSON Date of Service: 12/28/24 Procedure(s): XR lumbar spine 2-3V Accession Number(s): [id number] cc: MASON JOHNSON [place] [address] Patient Name: MANISH ROOT MRN: [id number] date: 1945 Sex: M Assigned Patient Location: [facility] Current Patient Location: [facility] Accession/Order Number: [id number] Exam Date: 12/28/2024 16:30 Report Date: 12/28/2024 [...] Burnett M.D. 12/28/2024 4:31 PM Dictation Location: [place] [address] Electronically authenticated by: [id number] Y Date: 12/28/2024 16:31 Dictated By: El Burnett M.D. Signed By: 12/28/24 1634 DD/ 1631 TD/TT: Event Promoter: [facility] HealthcareRadiology Study observation (narrative)[facility] HealthcareXR LUMBAR SPINE 2 OR 3VOrdered By: Radiologist Radiology on 54-92-3522J[facility] Work Phone: aNA SCREEN, IFA, W/REFL [...] indicated. For additional information, please refer to http://education.TRUSTe.DeviceAuthority/faq/HWB419 (This link is being provided for informational/ educational purposes only.)Performed By: #### 905, %60472, 809, 249 #### [facility] [place] [address] [facility], [address] [place] [address] Wind Turbine Machinist: Maged Olson MD #### 88[address] #### [facility]/Sarah [facility] [address] [facility] [place] [address] Wind Turbine Machinist: Yassine Bonilla M.D.,PhDANTINUCLEAR ANTIBODIES TITER AND PATTERNon 64-95-3255UJO PATTERNCytoplasmic, Polar/Golgi-likeAbnormalQuest DiagnosticsComment on above:Result Comment: Discontinuous speckled or granular perinuclear ribbon- like staining with polar distribution in the cytoplasm (e.g., anti-giantin, [id number]). Pattern is rare in Sjogren's syndrome, systemic lupus erythematosus (SLE), rheumatoid arthritis, mixed connective disease, granulomatosis with polyangiitis (GPA), idiopathic cerebellar ataxia, paraneoplastic cerebellar degeneration, and viral infections. AC-22: Polar/Golgi-like International Consensus on RAFAEL Patterns (https://doi.org/10.1515/thof-1059-1372)Performed By: #### 905, %54040, 809, 249 #### [facility] [address], [address] [place] [address] Wind Turbine Machinist: Maged Olson MD #### 8[address] #### [facility]/[place] [address] [facility] [place] Wind Turbine Machinist: Yassine Bonilla M.D.,PhDANA TITER1:40HighQuest [facility] Comment on above:Result Comment: A low level RAFAEL titer may be present in pre-clinical autoimmune diseases and normal individuals. Reference Range <1:40 Negative 1:40-1:80 Low Antibody Level >1:80 Elevated Antibody LevelPerformed By: #### 905, %68920, 809, 249 #### [facility] [address], [address] [place] [address] Wind Turbine Machinist: Maged Olson MD #### 498[address] #### [facility] [address] [facility] [place] Wind Turbine Machinist: Yassine Bonilla M.D.,PhDC-REACTIVE PROTEINon 28-36-8332IGF [Mass/Vol]9.8 mg/LHigh<8.0Quest DiagnosticsComment on above:Performed By: #### 905, %60387, 809, 249 #### [facility] [address], [address] [place] [address] Wind Turbine Machinist: Maged Olson MD #### 15142 #### [facility]/[place] [address] [facility] [place] Wind Turbine Machinist: Yassine Bonilla M.D.,PhDRHEUMATOID ARTHRITIS DIAGNOSTIC PANEL 3on 99-66-0836EVYZEH CITRULLINATED PEPTIDE (CCP) AB (IGG)<16Normal<20Quest DiagnosticsComment on above:Order Comment: FASTING:YES FASTING: YESResult Comment: Negative: <20 Weak Positive: 20 - 39 Moderate Positive: 40 - 59 Strong Positive: >59Performed By: #### 905, %34999, 809, 249 #### [facility] [address], [address] [place] [address] Wind Turbine Machinist: Maged Olson MD #### #### [facility]/[address] [place] Wind Turbine Machinist: Yassine Bonilla M.D.,PhDRHEUMATOID FACTOR (IGA)<5Normal<=6 Quest DiagnosticsComment on above:Order Comment: FASTING:YES FASTING: YESPerformed By: #### 905, %42489, 809, 249 #### [facility] [address], [address] [place] [address] Wind Turbine Machinist: Maged Olson MD #### #### [facility]/[address] [place], [place] Wind Turbine Machinist: Yassine Bonilla M.D.,PhDRHEUMATOID FACTOR (IGG)<5Normal<=6 [facility] DiagnosticsComment on above:Order Comment: FASTING:YES FASTING: YESPerformed By: #### 905, %48869, 809, 249 #### [facility] [address], [address] [place] [address] Wind Turbine Machinist: Maged Olson MD ### #### [facility]/[place] [address] [facility] [place] Wind Turbine Machinist: Yassine Bonilla M.D.,PhDRHEUMATOID FACTOR (IGM)<5Normal<=6 Quest DiagnosticsComment on above:Order Comment: FASTING:YES FASTING: YESPerformed By: #### 905, %54285, 809, 249 #### [facility] of [address], [address] [place], [place] [address] Wind Turbine Machinist: Maged Olson MD #### #### [facility]/[place] [address] [facility] [place] Wind Turbine Machinist: Yassine Bonilla M.D.,PhDSJOGREN'S ANTIBODY (SS-A)<1.0Normal [facility] DiagnosticsComment on above:Order Comment: FASTING:YES FASTING: YESResult Comment: Reference Range: < 1.0 NEG AIPerformed By: #### 905, %41116, 809, 249 #### [facility] of [address], [address] [place] [address] Wind Turbine Machinist: Maged Olson MD #### #### [facility]/[place] [address] [facility] [place] Wind Turbine Machinist: Yassine Bonilla M.D.,PhDSJOGREN'S ANTIBODY (SS-B)<1.0Normal [facility] DiagnosticsComment on above:Order Comment: FASTING:YES FASTING: YESResult Comment: Reference Range: < 1.0 NEG AIPerformed By: #### 905, %89025, 809, 249 #### [facility] of [address], [address] [place], [place] [address] Wind Turbine Machinist: Maged Olson MD #### #### [facility]/[place] [address] [facility] [place] Wind Turbine Machinist: Yassine Bonilla M.D.,PhDSED RATE BY MODIFIED WESTERGRENon 84-71-9637WUM RATE BY MODIFIED WESTERGREN9 mm/hNormal< OR = 20[facility] Comment on above:Performed By: #### 905, %78458, 809, 249 #### [facility] of [address], [address] [place], [place] [address] Wind Turbine Machinist: Maged Olson MD #### #### [facility]/Smith [facility] [address] [facility] [address] [place] Wind Turbine Machinist: Yassine Bonilla M.D.,PhDURIC ACIDon 02-29-5871Lmwqi [Mass/Vol] 5.6 mg/dLNormal4.0-8.0Quest DiagnosticsComment on above:Result Comment: Therapeutic target for gout patients: <6.0 mg/dLPerformed By: #### 905, %59149, 809, 249 #### [facility] [address] [facility], [address] [place] [address] Wind Turbine Machinist: Maged Olson MD #### 586[address] #### [facility]/Smith [facility] [address] [facility] [address] [place] Wind Turbine Machinist: Yassine Bonilla M.D.,PhDLaboratory - Hematology and Cell countson 44-47-2185GzN5m (Bld) [Mass fraction]7.1 %[facility]OMS HealthcareNo Panel Informationon 83-84-1239MTZJ HealthcareXR Knee - left 3 Viewson 73-41-7345Gbp[address] [address] XRay Report Signed Patient: MANISH ROOT MR#: [id number] : 1945 Acct:[id number] Age/Sex: 79 / M ADM Date: 12/09/24 Loc: RAD Attending Dr: MASON JOHNSON Ordering Physician: MASON JOHNSON Date of Service: 12/09/24 Procedure(s): XR knee LT 3V Accession Number(s): [id number] cc: MASON JOHNSON [address] [address] Patient Name: MANISH ROOT MRN: [id number] date: 1945 Sex: M Assigned Patient Location: RAD Current Patient Location: [facility] Accession/Order Number: [id number] Exam Date: 12/09/2024 13:17 Report Date: 12/09/2024 [...] Corea M.D. 12/09/2024 1:18 PM Dictation Location: [place] [address] Electronically authenticated by: [id number] Y Date: 12/09/2024 13:18 Dictated By: Mavis Corea M.D. Signed By: 12/09/24 1321 DD/ 1318 TD/TT: Event Promoter:TBHRadiology, Radiologist, MD - 12/09/2024 The [place] [address] XRay Report Signed Patient: MANISH ROOT MR#: [id number] : 1945 Acct:[id number] Age/Sex: 79 / M ADM Date: 12/09/24 Loc: [facility] Attending Dr: MASON JOHNSON Ordering Physician: MASON JOHNSON Date of Service: 12/09/24 Procedure(s): XR knee LT 3V Accession Number(s): [id number] cc: MASON JOHNSON The [place] [id number] Patient Name: MANISH ROOT MRN: [id number] date: 1945 Sex: M Assigned Patient Location: [facility] Current Patient Location: [facility] Accession/Order Number: [id number] Exam Date: 12/09/2024 13:17 Report Date: 12/09/2024 [...] Corea M.D. 12/09/2024 1:18 PM Dictation Location: [place] [address] Electronically authenticated by: [id number] Y Date: 12/09/2024 13:18 Dictated By: Mavis Corea M.D. Signed By: 12/09/24 1321 DD/ 1318 TD/TT: Event Promoter: [facility] HealthcareRadiology Study observation (narrative)[facility] CenterXR Knee - left 3 ViewsOrdered By: Radiologist Radiology on 93-48-1956XRXPResearch Psychiatric Center Work Phone: ccf T3 SERPL-MCNCon 78-31-9661SCI T3 SERPL-MCNC73 ng/dLLow79 - 165 ng/dLAMERICAN FORK HOSPITAL HealthcareInterpretation and review of laboratory resultsAbnormalCenterPointe Hospital T4 SERPL-MCNCon 15-79-3839H4 [Mass/Vol]5.6 ug/dL5.5 - 10.2 ug/dLAMERICAN FORK HOSPITAL HealthcareCCF TSH SERPL-ACNCon 14-08-9723DEZ TSH SERPL-ACNC2.85NOMD HealthcareNo Panel Informationon 34-03-1186Urnbmynj Type: BLOOD SPECIMEN Ordering Facility: [facility] Address: [address] [place] [address] Original Ordering Provider: Yordan PATTENSaint Luke's East HospitalT3 SerPl-mCncon 52-94-5857I2 [Mass/Vol]73 ng/pJNil88-674UavenavnnMercy Health Defiance Hospital Comment on above:Order Comment: Specimen Type: BLOOD SPECIMENOrdering Facility: [facility] Address:[address] [place] [address] Performed By: #### 3026-2, 3053-6, 3016-3 ####[facility] LABCLIA [id number] [address] SerPl-mCncon 17-63-0952G2 [Mass/Vol]5.6 ug/dLNormal5.5-10.2CSheltering Arms Hospital on above:Order Comment: Specimen Type: BLOOD SPECIMENOrdering Facility: [facility] Address:[address] [place], [place] [address]Performed By: #### 3026-2, 3053-6, 3016-3 ####[facility] LABCLIA [id number] [address] SerPl-aCncon 26-83-9209NIG Qn2.850 m[IU]/L Normal0.270-4.200[facility] on above:Order Comment: Specimen Type: BLOOD SPECIMENOrdering Facility: [facility] Address:[address] [place], [place] [address]Performed By: #### 3026-2, 3053-6, 3016-3 ####[facility] HOSPITALIA [id number] [address]CNOVon 60-15-6428TOEAWavrwr Visit (LAURIE) MANISH ROOT ([id number]) 1945 M Date Time Provider Department 11/04/24 [...] Lymph 1.00 - 4.00 k/uL 0.48 (L) Jerome% % 10.4 Abs Jerome <0.87 k/uL 0.32 Eosin% % 1.6 Abs [...] injection of im (more content not included)... NormalMercy Health Defiance HospitalCNOVSPon 11-91-8967DCFMAWHteog (SP) Office (BRUAN) MANISH ROOT ([id number]) 1945 M Date Time Provider Department 11/04/24 [...] 11/04/2024 7:00 PM Signed NAME: Manish Root [facility] NO.: [id number] DATE OF SERVICE: November 04, 2024 (Jacquelyn) [...] Ca Stage 3 - 2/5 LN + [place] regimen on protocol Updated Visit, November 04, 2024: Manish is doing well but his Jahaira is still dealing with an infection of left shoulder. He's now doing all the cooking. He is having left hip pain c/w arthritis. Reviewed scans and th (more content not included)...NormalMount [facility]. [facility] W Auto Differential panel (Bld)on 12-61-8270Vttsmtikt (Bld) [#/Vol] 0.04 10*3/uLNormal<0.11CSheltering Arms Hospital on above:Order Comment: Specimen Type: BLOOD SPECIMENOrdering Facility: [facility] Address:[address] [place], [place] [address]Performed By: #### 44185-2 ####[facility] LABCLIA [id number] [place], [place] [address]Ewcvbunku/100 WBC (Bld)1.0 %NormalElyria Memorial Hospital on above:Order Comment: Specimen Type: BLOOD SPECIMENOrdering Facility: [facility] Address:[address] [place], [place] [address]Performed By: #### 22544-7 ####[facility] LABCLIA [id number] [place], [place] [address]Rbbacwwhotwd cell count method Nom (Bld)AutoNormalCSheltering Arms Hospital on above:Order Comment: Specimen Type: BLOOD SPECIMENOrdering Facility: [facility] Address:[address] [place], [place] [address]Performed By: #### 24731-4 ####[facility] LABCLIA [id number] [place], [place] [address]Iyjoifdbljz (Bld) [#/Vol]0.10 10*3/uLNormal<0.46[facility] on above:Order Comment: Specimen Type: BLOOD SPECIMENOrdering Facility: [facility] Address:[address] [place], [place] [address]Performed By: #### 03808-5 ####[facility] LABCLIA [id number] [place], [place] [address]Lpuupcymgap/100 WBC (Bld)2.6 %NormalElyria Memorial Hospital on above:Order Comment: Specimen Type: BLOOD SPECIMENOrdering Facility: [facility] Address:[address] [place], [place] [address]Performed By: #### 44080-9 ####[facility] LABCLIA [id number] [place], [place] [address]Xhlzrvphtta distribution width (RBC) [Ratio]13.6 %Normal 11.5-15.0[facility] on above:Order Comment: Specimen Type: BLOOD SPECIMENOrdering Facility: [facility] Address:[address] [place], [place] [address]Performed By: #### 49754-9 ####[facility] LABCLIA [id number] [place] [address] Hematocrit (Bld) [Volume fraction]41.1 %Ekclxh41.0-51.0[facility] on above:Order Comment: Specimen Type: BLOOD SPECIMENOrdering Facility: [facility] Address:[address] [place], [place] [address]Performed By: #### 53391-7 ####[facility] LABCLIA [id number] [place], [place] [address]Flactxbymm (Bld) [Mass/Vol]14.0 g/mJZihwlu03.0-17.0[facility] on above:Order Comment: Specimen Type: BLOOD SPECIMENOrdering Facility: [facility] Address:[address] [place], [place] [address]Performed By: #### 52561-3 ####[facility] LABCLIA [id number] [place], [place] [address]Mhymdvbk granulocytes (Bld) [#/Vol]0.04 10*3/uLNormal <0.10[facility] on above:Order Comment: Specimen Type: BLOOD SPECIMENOrdering Facility: [facility] Address:[address] [place], [place] [address]Performed By: #### 84209-8 ####[facility] LABCLIA [id number] [place], [place] [address]Zablhmqh granulocytes/100 WBC (Bld)1.0 %NormalElyria Memorial Hospital on above: Order Comment: Specimen Type: BLOOD SPECIMENOrdering Facility: [facility] Address:[address] [place], [place] [address]Performed By: #### 19817- 8 ####[facility] LABIA [id number] [place], [place] [address]Bccwjdlumkg (Bld) [#/Vol]0.58 10*3/uLLow1.00-4.00 [facility] on above:Order Comment: Specimen Type: BLOOD SPECIMENOrdering Facility: [facility] Address:[address] [place], [place] [address]Performed By: #### 80448-7 ####[facility] LABIA [id number] [place], [place] [address]Xzwlebmskju/100 WBC (Bld)14.8 %NormalElyria Memorial Hospital on above:Order Comment: Specimen Type: BLOOD SPECIMENOrdering Facility: [facility] Address:[address] [place], [place] [address]Performed By: #### 23837-2 ####[facility] LABIA [id number] [place], [place] [address]PXV (RBC) [Entitic mass]30.8 jsNlkiaf23.0-34.0[facility] on above:Order Comment: Specimen Type: BLOOD SPECIMENOrdering Facility: [facility] Address:[address] [place], [place] [address]Performed By: #### 65344-0 ####[facility] LABIA [id number] [place], [place] [address]EAEU (RBC) [Mass/Vol]34.1 g/zEZhmzvk67.5-36.0[facility] on above: Order Comment: Specimen Type: BLOOD SPECIMENOrdering Facility: [facility] Address:[address] [place], [place] [address]Performed By: #### 615[address]- 8 ####[facility] LABIA [id number] [place], [place] [address]XTO (RBC) [Entitic vol]90.3 nLKivddo75.0-100.0[facility] on above:Order Comment: Specimen Type: BLOOD SPECIMENOrdering Facility: [facility] Address:[address] [place], [place] [address]Performed By: #### 67164-7 ####[facility] LABIA [id number] [place], [place] [address]Hoaearxgh (Bld) [#/Vol]0.34 10*3/uLNormal<0.87[facility] on above:Order Comment: Specimen Type: BLOOD SPECIMENOrdering Facility: [facility] Address:[address] [place], [place] [address]Performed By: #### 13065- 8 ####[facility] LABCLIA [id number] [place], [place] [address]Zdouujvui/100 WBC (Bld)8.7 %NormalElyria Memorial Hospital on above:Order Comment: Specimen Type: BLOOD SPECIMENOrdering Facility: [facility] Address:[address] [place], [place] [address]Performed By: #### 40435-3 ####[facility] LABCLIA [id number] [place], [place] [address]Zbydbpvedpk (Bld) [#/Vol]2.81 10*3/uLNormal1.45-7.50[facility] on above:Order Comment: Specimen Type: BLOOD SPECIMENOrdering Facility: [facility] Address:[address] [place], [place] [address]Performed By: #### 17278-0 ####[facility] LABCLIA [id number] [place], [place] [address]Zzmyzmdawsy/100 WBC (Bld)71.9 %NormalElyria Memorial Hospital on above:Order Comment: Specimen Type: BLOOD SPECIMENOrdering Facility: [facility] Address:[address] [place], [place] [address]Performed By: #### 32795-2 ####[facility] LABIA [id number] [place], [place] [address]Jwyacdcib RBC (Bld) [#/Vol] 10*3/uLNormal<0.01[facility] on above:Order Comment: Specimen Type: BLOOD SPECIMENOrdering Facility: [facility] Address:[address] [place], [place] [address]Performed By: #### 40888-8 ####[facility] LABCLIA [id number] [place], [place] [address]Hbjdsetwg RBC/100 WBC (Bld) [Ratio]0.0 /100 WBCNormal [facility] on above:Order Comment: Specimen Type: BLOOD SPECIMENOrdering Facility: [facility] Address:[address] [place], [place] [address]Performed By: #### 89954-0 ####[facility] LABIA [id number] [place], [place] [address]Acpmdfbz mean volume (Bld) [Entitic vol]9.7 fLNormal9.0-12.7CSheltering Arms Hospital on above:Order Comment: Specimen Type: BLOOD SPECIMENOrdering Facility: [facility] Address:[address] [place], [place] [address] Performed By: #### 10220-4 ####[facility] LABCLIA [id number] [place], [place] [address]Wxbrghers (Bld) [#/Vol]210 10*3/dHDtbxsz803-064JogkyonzbElyria Memorial Hospital on above:Order Comment: Specimen Type: BLOOD SPECIMENOrdering Facility: [facility] Address:[address] [place], [place] [address]Performed By: #### 09328-5 ####[facility] LABCLIA [id number] [place], [place] [address]YKL (Bld) [#/Vol]4.55 10*6/uLNormal4.20-6.00[facility] on above:Order Comment: Specimen Type: BLOOD SPECIMENOrdering Facility: [facility] Address:[address] [place], [place] [address]Performed By: #### [id number] ####[facility] LABIA [id number] [place], [place] [address]PBI (Bld) [#/Vol]3.91 10*3/uLNormal3.70-11.00[facility] on above: Order Comment: Specimen Type: BLOOD SPECIMENOrdering Facility: [facility] Address:[address] [place], [place] [address]Performed By: #### 21098- 8 ####[facility] LABCLIA [id number] [place], [place] [address]CFO CBC W AUTO DIFF BLDon 82-70-4796Mgvpzuvzj/100 WBC (Bld)1 %NOMS HealthcareCCF BASOPHILS # BLD AUTO0.04NINFNOMS HealthcareCCF DIFFERENTIAL METHOD BLDAutoNOMS HealthcareCCF EOSINOPHIL # BLD AUTO0.1NINFNOMS HealthcareCCF LYMPHOCYTES # BLD AUTO0.58LowNOMS HealthcareCCF MONOCYTES # BLD AUTO0.34NIHawkins County Memorial Hospital NEUTROPHILS # BLD AUTO2.81NOGolden Valley Memorial Hospital NRBC # BLD AUTO<0.01NINFCenterPointe Hospital NRBC/100 WBC BLD-RTO0/100 WBCCenterPointe Hospital PLATELET # BLD [id number] Hospital PMV BLD AUTO9.7 fL9.0 - 12.7 fLCenterPointe Hospital WBC # BLD AUTO3.91[facility] Psychiatric CenterEosinophils/100 WBC (Bld)2.6 %[facility] Psychiatric CenterErythrocyte distribution width (RBC) [Ratio]13.6 %11.5 - 15.0 %[facility] Psychiatric CenterHematocrit (Bld) [Volume fraction]41.1 %39.0 - 51.0 %[facility] Psychiatric CenterHemoglobin (Bld) [Mass/Vol]14 g/dL13.0 - 17.0 g/dLHCA Midwest Division GRANULOCYTES # BLD AUTO0.04NIHawkins County Memorial Hospital GRANULOCYTES/LEUK NFR BLD AUTO 1 %[facility] Psychiatric CenterInterpretation and review of laboratory resultsAbnoPenn State Health Holy Spirit Medical CenterLymphocytes/100 WBC (Bld)14.8 %[facility] SouthH (RBC) [Entitic mass] 30.8 pg26.0 - 34.0 pgCox SouthHC (RBC) [Mass/Vol]34.1 g/dL30.5 - 36.0 g/dLCox SouthV (RBC) [Entitic vol]90.3 fL80.0 - 100.0 fLResearch Psychiatric Center Monocytes/100 WBC (Bld)8.7 %[facility] Psychiatric CenterNeutrophils/100 WBC (Bld)71.9 %[facility] Psychiatric CenterRBC (Bld) [#/Vol]4.55 10*6/uL4.20 - 6.00 m/uLResearch Psychiatric CenterSpecimen Type: BLOOD SPECIMEN Ordering Facility: [facility] Address: [address] [place] [address] Original Ordering Provider: JOHN CARLOSKindred HospitalCT CHEST W IVCONon 90-78-8528QP CHEST W IVCON* * *Final Report* * [...] any questions regarding this interpretation, please call [phone]. If you are unable to reach us at the number above, please feel free to contact [facility] eRadiology at [phone]. [id number]_IDCSIACNNormalMercy Health Defiance HospitalCT Chest W contrast Kinga 10-28-2024* * [...] any questions regarding this interpretation, please call [phone]. If you are unable to reach us at the number above, please feel free to contact [facility] at [phone]. [id number]^AGFA_IDC^SI^ACNCCFRadiology, Radiologist, - 10/28/2024 * * *Final Report* [...] any questions regarding this interpretation, please call [phone]. If you are unable to reach us at the number above, please feel free to contact [facility] at [phone]. [id number]^AGFA_IDC^SI^ACN NOMS HealthcareCT Chest W contrast IVOrdered By: Radiologist Radiology on 22-42-4950RJFZ Pet[employer] Work Phone: cT NECK SOFT TISSUE W [...] review the electronic medical record, history of N01-weaybykw LEFT tongue base squamous cell carcinoma status [...] any questions regarding this interpretation, please call [phone]. If you are unable to reach us at the number above, please feel free to contact [facility] at [phone]. [id number]^AGFA_IDC^SI^ACNCCFRadiology, RadiologistMD - 10/28/2024 * * *Final Report* [...] review the electronic medical record, history of Z22-pyoioajp LEFT tongue base squamous cell carcinoma status [...] any questions regarding this interpretation, please call [phone]. If you are unable to reach us at the number above, please feel free to contact [facility] at [phone]. [id number]^AGFA_IDC^SI^ACN NOMS HealthcareCT NECK SOFT TISSUE W IVCON* [...] review the electronic medical record, history of U22-eveosuhx LEFT tongue base squamous cell carcinoma status [...] any questions regarding this interpretation, please call [phone]. If you are unable to reach us at the number above, please feel free to contact [facility] eRadiology at [phone]. [id number]_IDCSIACNNormalGrant Hospital NECK SOFT TISSUE W IVCONOrdered By: Radiologist Radiology on 60-23-9003RNHUResearch Psychiatric Center Work Phone: comprehensive metabolic 2000 panelon 41-42-0036Ozwsfyw [Mass/Vol]4.6 g/dLNormal3.9-4.9CSheltering Arms Hospital on above:Order Comment: Specimen Type: BLOOD SPECIMENOrdering Facility: [facility] Address:[address] [place], [place] [address]Performed By: #### 3016-3 ####[facility] LABCLIA [id number] [place] [address] [place]#### 04669-3 ####[facility] LABCLIA [id number] [place], [place] [address]LWK [Catalytic activity/Vol]61 U/WEmtdmj45-943EuiacsfleMercy Health Defiance Hospital Comment on above:Order Comment: Specimen Type: BLOOD SPECIMENOrdering Facility: [facility] Address:[address] [place] [address] Performed By: #### 3016-3 ####[facility] LABCLIA [id number] [address] [place]#### 23205-4 ####[facility] LABCLIA [id number] [place], [place] [address]UND [Catalytic activity/Vol]27 U/LNormal 10-54[facility] on above:Order Comment: Specimen Type: BLOOD SPECIMENOrdering Facility: [facility] Address:[address] [place], [place] [address]Performed By: #### 3016-3 ####[facility] LABCLIA [id number] [place] [address] [place]#### 04749-8 ####[facility] LABCLIA [id number] [place], [place] [address]Csrwh gap [Moles/Vol]11 mmol/L Normal8-15[facility] on above:Order Comment: Specimen Type: BLOOD SPECIMENOrdering Facility: [facility] Address:[address] [place], [place] [address]Performed By: #### 3016-3 ####[facility] LABCLIA [id number] [place] [address] [place]#### 35368-7 ####[facility] MEDICAL CENTERJERMAINE UP HEALTH SYSTEM LA BCLIA [id number] [place], [place] [address]CJB [Catalytic activity/Vol]23 U/JDomnqs17-59YoabfikwgElyria Memorial Hospital on above:Order Comment: Specimen Type: BLOOD SPECIMENOrdering Facility: [facility] Address:[address] [place], [place] [address]Performed By: #### 3016-3 ####[facility] LABCLIA [id number] [place] [address] [place]#### 53514-0 ####[facility] LABCLIA [id number] [place], [place] [address]Gtjfhjlwl [Mass/Vol]0.5 mg/dLNormal0.2-1.3CSheltering Arms Hospital on above:Order Comment: Specimen Type: BLOOD SPECIMENOrdering Facility: [facility] Address:[address] [place] [address] Performed By: #### 3016-3 ####[facility] LABCLIA [id number] [place] [address] [place]#### 59238-6 ####[facility] LABCLIA [id number] [place], [place] [address]Louumvh [Mass/Vol]9.8 mg/dLNormal8.5-10.2 [facility] on above:Order Comment: Specimen Type: BLOOD SPECIMENOrdering Facility: [facility] Address:[address] [place], [place] [address]Performed By: #### 3016-3 ####[facility] LABCLIA [id number] [place] [address] [place]#### 65189-2 ####[facility] LABCLIA [id number] [place], [place] [address]Nxrzakla [Moles/Vol]100 mmol/ETjiytf94-941 [facility] on above:Order Comment: Specimen Type: BLOOD SPECIMENOrdering Facility: [facility] Address:[address] [place], [place] [address]Performed By: #### 3016-3 ####[facility] LABCLIA [id number] [place] [address] [place]#### 77082-3 ####[facility] LABCLIA [id number] [place], [place] [address]FY5 [Moles/Vol]27 mmol/JZnvipb89-82TaleniibhElyria Memorial Hospital on above:Order Comment: Specimen Type: BLOOD SPECIMENOrdering Facility: [facility] Address:[address] [place], [place] [address]Performed By: #### 3016-3 ####[facility] LABCLIA [id number] [address] [place]#### 51035-9 ####[facility] LABCLIA [id number] [place], [place] [address]Rigthfplqk [Mass/Vol]1.04 mg/dLNormal 0.73-1.22[facility] on above:Order Comment: Specimen Type: BLOOD SPECIMENOrdering Facility: [facility] Address:[address] [place], [place] [address]Performed By: #### 3016-3 ####[facility] LABCLIA [id number] [place] [address] [place]#### 06186-5 ####[facility] [place] BCLIA [id number] [place], [place] [address]Ojksdgfksb and Glomerular filtration rate.predicted panel (S/P/Bld)73 mL/min/1.73m???Normal>=60 [facility] on above:Order Comment: Specimen Type: BLOOD SPECIMENOrdering Facility: [facility] Address:[address] [place], [place] [address]Result Comment: Estimated Glomerular Filtration Rate (eGFR) is [...] accurately reflect actual GFR.Performed By: #### 3016-3 ####[facility] LABCLIA [id number] [address]#### [address]-8 ####[facility] LABCLIA [id number] [place], [place] [address]Xpqaari [Mass/Vol]235 mg/zILqlc68-24 [facility] on above:Order Comment: Specimen Type: BLOOD SPECIMENOrdering Facility: [facility] Address:[address] [place] [address]Xtdqht Comment: The Stateless Diabetes Association (ADA) provides guidance for cutoff [...] Standards of Medical Care in Diabetes 2016, Stateless Diabetes Association. Diabetes Care. 2016.39(Suppl 1).Performed By: #### 3016-3 ####[facility] LABCLIA [id number] [place] [address] [place]#### 84247-8 ####[facility] LABCLIA [id number] [place], [place] [address]Epptikxqn [Moles/Vol]4.3 mmol/LNormal3.7-5.1CA[facility] Comment on above:Order Comment: Specimen Type: BLOOD SPECIMENOrdering Facility: [facility] Address:[address] [place] [address] Performed By: #### 3016-3 ####[facility] LABCLIA [id number] [place] [address] [place]#### 93789-9 ####[facility] LABCLIA [id number] [place], [place] [address]Ceuilrw [Mass/Vol]7.2 g/dLNormal6.3-8.0 [facility] Defiance HospitalComment on above:Order Comment: Specimen Type: BLOOD SPECIMENOrdering Facility: [facility] Address:[address] [place], [place] [address]Performed By: #### 3016-3 ####[facility] LABCLIA [id number] [place] [address] [facility] [place]#### 06207-9 ####[facility] LABCLIA [id number] [place], [place] [address]Cmznes [Moles/Vol]138 mmol/YRflzml803-991 [facility] Defiance HospitalComformerly [facility] on above:Order Comment: Specimen Type: BLOOD SPECIMENOrdering Facility: [facility] Address:[address] [place], [place] [address]Performed By: #### 3016-3 ####[facility] LABCLIA [id number] [place] [address] [place]#### 48825-2 ####[facility] MEDICAL CENTERJERMAINE UP [facility] LABCLIA [id number] [place], [place] [address]Fdvi nitrogen [Mass/Vol]13 mg/dLNormal9-24 [facility] on above:Order Comment: Specimen Type: BLOOD SPECIMENOrdering Facility: [facility] Address:[address] [place], [place] [address]Performed By: #### 3016-3 ####[facility] LABCLIA [id number] [address]#### 86377-0 ####[facility] LABCLIA [id number] [place], [place] [address]Fh Panel Informationon 01-97-9497Xhcvoypyg Study observation (narrative)NOMS HealthcareT4 SerPl-mCncon 91-28-9542Y3 [Mass/Vol]0.6 ug/dLLow5.5-10.2CSheltering Arms Hospital on above:Order Comment: Specimen Type: BLOOD SPECIMENOrdering Facility: [facility] Address:[address] [place], [place] [address]Performed By: #### 3026-2 ####[facility] LABIA [id number] [address] STATES OF [facility] HOSPITALTS SerPl-aCncon 25-52-5108NPC Qn 3.310 m[IU]/LNormal0.270-4.200[facility] on above:Order Comment: Specimen Type: BLOOD SPECIMENOrdering Facility: [facility] Address:[address] [place], [place] [address]Performed By: #### 3016-3 ####[facility] LABCLIA [id number] [place] [address] [place]#### 37968-4 ####[facility] LABCLIA [id number] [place], [place] [address]FSYXaz 56-98-1548HTPMFoqgebyoo (RADTSA) MANISH ROOT ([id number]) 1945 M Date Time Provider Department 10/27/24 [...] of thyroid [E07.89] Order(s):T4/THYROXINE [SQT4] Order #: [id number] FUTURE THYROID STIMULATING HORMONE [SQTSH] Order #: [id number] FUTURE THYROID STIMULATING HORMONE [SQTSH] Order #: [id number] FUTURE Prescriptions as of 10/29/2024 - cholecalciferol, [...] [E74.*02/11/2023 Encounter Status:Closed by NELA ANTOINE on 10/29/24NoThe [facility] CERVICAL SP[facility] 2-3Von 08-31-4803[place]vK[place], [place] [address] XRay Report Signed Patient: MANISH ROOT MR#: [id number] : 1945 Acct:[id number] Age/Sex: 78 / M ADM Date: 10/13/24 Loc: RAD Attending Dr: MASON JOHNSON Ordering Physician: MASON JOHNSON Date of Service: 10/13/24 Procedure(s): XR cervical spine 2-3V Accession Number(s): [id number] cc: MASON JOHNSON [address] [address] Patient Name: MANISH ROOT MRN: [id number] date: 1945 Sex: M Assigned Patient Location: [facility] Current Patient Location: [facility] Accession/Order Number: [id number] Exam Date: 10/13/2024 10:38 Report Date: 10/13/2024 [...] Eric Alcaraz M.D.10/13/2024 10:40 AM Dictation Location: [place] [address] Electronically authenticated by: [id number] Y Date: 10/13/2024 10:40 Dictated By: Eric Alcaraz D.O. Signed By: 10/13/24 1043 DD/ 1040 TD/TT: Event Promoter:TBHRadiology, Radiologist, MD - 10/13/2024 [place] [address] XRay Report Signed Patient: MANISH ROOT MR#: [id number] : 1945 Acct:[id number] Age/Sex: 78 / M ADM Date: 10/13/24 Loc: RAD Attending Dr: MASON JOHNSON Ordering Physician: MASON JOHNSON Date of Service: 10/13/24 Procedure(s): XR cervical spine 2-3V Accession Number(s): [id number] cc: MASON JOHNSON [place] [id number] Patient Name: MANISH ROOT MRN: [id number] date: 1945 Sex: M Assigned Patient Location: [facility] Current Patient Location: [facility] Accession/Order Number: [id number] Exam Date: 10/13/2024 10:38 Report Date: 10/13/2024 [...] Eric Alcaraz M.D.10/13/2024 10:40 AM Dictation Location: [place] [address] Electronically authenticated by: [id number] Y Date: 10/13/2024 10:40 Dictated By: Eirc Alcaraz D.O. Signed By: 10/13/24 1043 DD/ 1040 TD/TT: Event Promoter: QUIANA HealthcareRadiology Study observation (narrative)NOMS HealthcareXR CERVICAL SPINE 2-3VOrdered By: Radiologist Radiology on 48-80-1841[facility] Work Phone: XR HIP LT MIN 2Von 68-33-2454QtuKittrell, [place] [address] XRay Report Signed Patient: MANISH ROOT MR#: [id number] : 1945 Acct:[id number] Age/Sex: 78 / M ADM Date: 10/13/24 Loc: RAD Attending Dr: MASON JOHNSON Ordering Physician: MASON JOHNSON Date of Service: 10/13/24 Procedure(s): XR hip LT min 2V Accession Number(s): [id number] cc: MASON JOHNSON [place] [id number] Patient Name: MANISH ROOT MRN: [id number] date: 1945 Sex: M Assigned Patient Location: [facility] Current Patient Location: [facility] Accession/Order Number: [id number] Exam Date: 10/13/2024 10:37 Report Date: 10/13/2024 [...] AM Dictation Location: RADIO-PC-23 Electronically authenticated by: [id number] Y Date: 10/13/2024 10:38 Dictated By: Eric Alcaraz D.O. Signed By: 10/13/24 1041 DD/ 1038 TD/TT: Event Promoter:Kris Radiologist, - 10/13/2024 [place] [address] XRay Report Signed Patient: MANISH ROOT MR#: [id number] : 1945 Acct:[id number] Age/Sex: 78 / M ADM Date: 10/13/24 Loc: RAD Attending Dr: MASON JOHNSON Ordering Physician: MASON JOHNSON Date of Service: 10/13/24 Procedure(s): XR hip LT min 2V Accession Number(s): [id number] cc: MASON JOHNSON [place] [id number] Patient Name: MANISH ROOT MRN: [id number] date: 1945 Sex: M Assigned Patient Location: [facility] Current Patient Location: [facility] Accession/Order Number: [id number] Exam Date: 10/13/2024 10:37 Report Date: 10/13/2024 [...] AM Dictation Location: RADIO-PC-23 Electronically authenticated by: [id number] Y Date: 10/13/2024 10:38 Dictated By: Eric Alcaraz D.O. Signed By: 10/13/24 1041 DD/ 1038 TD/TT: Event Promoter: [facility] HealthcareRadiology Study observation (narrative)QUIANA KerrXR HIP LT MIN 2VOrdered By: Radiologist Radiology on 06-75-6639GORJ [employer] Work Phone: No Panel Informationon 81-59-7377FWXCResearch Psychiatric CenterNOMD HealthcarePSA, TOTALon 81-49-8293VOE, TOTAL1.15 ng/mLNormal< OR = 4.00Quest DiagnosticsComment on [...] absence of disease.Performed By: #### 5363 #### [facility] [address], [address] [place] [id number] Wind Turbine Machinist: Maged Olson MDLaboratory - Hematology and Cell countson 17-58-7904EfH1s (Bld) [Mass fraction]6.9 %[facility] HealthcareNo Panel Informationon 84-30-3178KSIRResearch Psychiatric CenterNo Panel Informationon 14-94-4782CPGV HealthcareCNOVon 52-02-5495PFFZCbvtfn Visit (RADTSA) MANISH ROOT ([id number]) 1945 M Date Time Provider Department 05/06/24 [...] Lymph 1.00 - 4.00 k/uL 0.48 (L) Jerome% % 10.4 Abs Jerome <0.87 k/uL 0.32 Eosin% % 1.6 Abs [...] significant neck swelling RESPIRATORY: (more content not included)...NormalMercy Health Defiance Hospital CNOVSPon 25-02-7669QMJRJJIhair (SP) Office (HEMASA) MANISH ROOT ([id number]) 1945 M Date Time Provider Department 05/06/24 3:20 PM JOHN ENGLAND During your visit today, we recorded the following information about you: Temperature Pulse Respiration Blood pressure 97.8 degrees 60/minute 18/minute 122/73 Weight Height 86.7 kg 1.669 m John England MD 05/09/2024 10:42 AM Signed NAME: Manish Root [facility] NO.: [id number] DATE OF SERVICE: May 06, 2024 (Jacquelyn) [...] Ca Stage 3 - 2/5 LN + [place] regimen on protocol Updated Visit, May 06, [...] of abnormalities. Kidney function (more content not included)...NormalMercy Health Defiance Hospital CBC W Auto Differential panel (Bld)on 49-88-6123Cuwmfepof (Bld) [#/Vol]0.03 10*3/[facility]UMed[facility] Community HospitalDifferential cell count method Nom (Bld)AutoCleveland ClinicEosinophils (Bld) [#/Vol]0.06 10*3/uLNIAultman HospitalImmature granulocytes (Bld) [#/Vol]NINFClevelMercy Health Perrysburg HospitalImmature granulocytes/100 WBC (Bld)0.6 %[facility] - WestLymphocytes (Bld) [#/Vol]0.46 10*3/uLWestern Reserve Hospital ClinicMonocytes (Bld) [#/Vol]0.30 10*3/uLNITrinity Health System Twin City Medical [facility] ClinicNeutrophils (Bld) [#/Vol]2.59 10*3/[facility]. Francis HospitalNucleated RBC (Bld) [#/Vol]NINFCleveland ClinicNucleated RBC/100 WBC (Bld) [Ratio]0.0 %/100 WBCLake County Memorial Hospital - WestPlatelet mean volume (Bld) [Entitic vol]9.4 fL9.0 - 12.7 fLCleveland ClinicPlatelets (Bld) [#/Vol]206 10*3/uLLake County Memorial Hospital - WestWBC (Bld) [#/Vol]3.46 10*3/uLLow [facility] CBC W AUTO DIFF BLDon 13-50-3576QNX BASOPHILS # BLD AUTO0.03 [facility] DIFFERENTIAL METHOD BLDAutoNOMS [facility] EOSINOPHIL # BLD AUTO0.06[facility] LYMPHOCYTES # BLD AUTO0.46[facility] MONOCYTES # BLD AUTO0.3NIHawkins County Memorial Hospital NEUTROPHILS # BLD AUTO2.59[facility] NRBC # BLD AUTO<0.01NIHawkins County Memorial Hospital NRBC/100 WBC BLD-RTO0/100 WBCCenterPointe Hospital PLATELET # BLD BNIE483KANAGolden Valley Memorial Hospital PMV BLD AUTO9.4 fL9.0 - 12.7 fLNOGolden Valley Memorial Hospital WBC # BLD AUTO3.46LowNOSaint Alexius Hospital GRANULOCYTES # BLD AUTO<0.03NINFNOSaint Alexius Hospital GRANULOCYTES/LEUK NFR BLD AUTO0.6 %[facility] HealthcareSpecimen Type: BLOOD SPECIMEN Ordering Facility: [facility] Address: [address] [place] [address] Original Ordering Provider: JOHN DANIELISYNCCCF FERRITIN SERPL-MCNCon 37-52-9837WKA FERRITIN SERPL-UPGW095.0 ng/mL30.3 - 565.7 ng/mLNPerry County Memorial Hospital FOLATE SERPL-MCNCon 00-35-5982LOJ FOLATE SERPL-MCNC12.1 ng/mL4.7 - PINF ng/mL [facility] IRON+TIBC PNL SERPLon 34-82-3364ZYB IRON SERPL-MCNC78 ug/dL41 - 186 ug/dLCenterPointe Hospital IRON/TIBC SERPL-SRTO26.0 %15.0 - 57.0 %[facility] TIBC SERPL-HVUV077 ug/dL232 - 386 ug/dLAMERICAN FORK HOSPITAL HealthcareSpecimen Type: BLOOD SPECIMEN Ordering Facility: [facility] Address: [address] [place] [address] Original Ordering Provider: JOHN DANIELISYRAFACT Chest W contrast [place] 93-01-2327HUSBYLMSLO: 1. No interval change since 10/16/23. 2. [...] any questions regarding this interpretation, please call [phone]. If you are unable to reach us at the number above, please feel free to contact [facility] eRadiology at [phone].DIVISION OF RADIOLOGY* * *Final Report* * * [...] images: No additional findings. DIVISION OF RADIOLOGYProvider, [facility] [place] - 04/23/2024 * * *Final Report* * [...] any questions regarding this interpretation, please call [phone]. If you are unable to reach us at the number above, please feel free to contact [facility] eRadiology at [phone]. [facility]* * *Final Report* * * DATE OF [...] any questions regarding this interpretation, please call [phone]. If you are unable to reach us at the number above, please feel free to contact [facility] at [phone]. [id number]^AGFA_IDC^SI^ACNCCFRadiology, Radiologist, - 04/23/2024 * * *Final Report* [...] any questions regarding this interpretation, please call [phone]. If you are unable to reach us at the number above, please feel free to contact [facility] at [phone]. 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 Instrument Shop Supervisor (topogram) images: No additional findings. IMPRESSION: 1. [...] any questions regarding this interpretation, please call [phone]. If you are unable to reach us at the number above, please feel free to contact [facility] at [phone]. [id number]^AGFA_IDC^SI^ACNCCFRadiology, RadiologistMD - 04/23/2024 * * *Final Report* [...] a moderate-severe central stenosis at C4-5, unchanged. Instrument Shop Supervisor (topogram) images: No additional findings. IMPRESSION: 1. [...] any questions regarding this interpretation, please call [phone]. If you are unable to reach us at the number above, please feel free to contact [facility] at [phone]. [id number]^AGFA_IDC^SI^ACN NOMS HealthcareCT Neck W contrast King[place] 37-80-1908KUYBLIQFAG: 1. STABLE POSTTREATMENT CHANGES AT LEFT BASE [...] any questions regarding this interpretation, please call [phone]. If you are unable to reach us at the number above, please feel free to contact [facility] at [phone].DIVISION OF RADIOLOGY* * *Final Report* * * [...] a moderate-severe central stenosis at C4-5, unchanged. Instrument Shop Supervisor (topogram) images: No additional findings. DIVISION OF RADIOLOGYProvider, [facility] [place] - 04/23/2024 * * *Final Report* * [...] a moderate-severe central stenosis at C4-5, unchanged. Instrument Shop Supervisor (topogram) images: No additional findings. IMPRESSION IMPRESSION: [...] any questions regarding this interpretation, please call [phone]. If you are unable to reach us at the number above, please feel free to contact [facility] eRadiology at [phone]. [facility] WestComprehensive metabolic 2000 panelOrdered By: Moustapha Calderon on [id number] [Mass/Vol]4.2 g/dL3.9 - 4.9 g/dLLake Leelanau ClinicALP [Catalytic activity/Vol]48 U/L38 - 113 U/LCleveland ClinicALT [Catalytic activity/Vol]14 U/L10 - 54 U/LCleveland ClinicAnion gap [Moles/Vol]8 mmol/L8 - 15 mmol/L [facility] WestAST [Catalytic activity/Vol]15 U/L14 - 40 U/LCleveland [facility] Bilirubin [Mass/Vol]0.5 mg/dL0.2 - 1.3 mg/dLLake Leelanau ClinicCalcium [Mass/Vol] 9.5 mg/dL8.5 - 10.2 mg/dLLake Leelanau ClinicChloride [Moles/Vol]103 mmol/L98 - 107 mmol/LCleveland ClinicCO2 [Moles/Vol]30 mmol/L22 - 30 mmol/LCleveland Clinic Creatinine [Mass/Vol]1.32 mg/dLHigh0.73 - 1.22 mg/dLLake County Memorial Hospital - WestGFR/1.73 sq M.predicted among non-blacks MDRD (S/P/Bld) [Vol [...] eGFRmay not accurately reflect actual GFR.Glucose [Mass/Vol]146 mg/qOIrdc61 - 99 mg/dLLake County [facility] Hospital - West Comment on above:The Stateless Diabetes Association (ADA) provides guidance for cutoff [...] Standards of Medical Care in Diabetes 2016, Stateless Diabetes Association. Diabetes Care. 2016.39(Suppl 1). Interpretation and review of laboratory resultsAbnormalCleveland ClinicPotassium [Moles/Vol]4.3 mmol/L3.7 - 5.1 mmol/LCleveland ClinicProtein [Mass/Vol]6.6 g/dL 6.3 - 8.0 g/dLLake Leelanau ClinicSodium [Moles/Vol]141 mmol/L136 - 144 mmol/L [facility] - WestUrea nitrogen [Mass/Vol]18 mg/dL9 - 24 mg/dLSt. Vincent HospitalFERRITINon 61-05-5715Enaasmhn [Mass/Vol]158.0 ng/mL30.3 - 565.7 ng/mLCleveland Lake Region HospitalFOLATE, SERUMon [id number] [Mass/Vol]12.1 ng/mL4.7 - PINF ng/mLCleveland Lake Region HospitalIron and Iron binding capacity panelon 04-23-2024 Interpretation and review of laboratory resultsNormalClevelashe memorial hospital ClinicIron [Mass/Vol]78 ug/dL41 - 186 ug/dLLake County Memorial Hospital - WestIron binding capacity [Mass/Vol] 300 ug/dL232 - 386 ug/dLLake County Memorial Hospital - WestIron/TIBC [Molar ratio]26.0 %15.0 - 57.0 %[facility] WestLaboratory - Chemistry and Chemistry - challengeon 04-23-2024 Cobalamin (Vitamin B12) [Mass/Vol]349 pg/mL232 - 1245 pg/mLCWestern Reserve Hospital Laboratory - Hematology and Cell countson [id number]/100 WBC (Bld)0.9 % [facility] HealthcareEosinophils/100 WBC (Bld)1.7 %[facility] HealthcareErythrocyte distribution width (RBC) [Ratio]14.4 %11.5 - 15.0 %[facility] HealthcareHematocrit (Bld) [Volume fraction]38.4 %Low39.0 - 51.0 %[facility] Psychiatric CenterHemoglobin (Bld) [Mass/Vol]13.3 g/dL13.0 - 17.0 g/dLNOKindred HospitalLymphocytes/100 WBC (Bld)13.3 %[facility] Psychiatric CenterMCH (RBC) [Entitic mass]31.9 pg26.0 - 34.0 pgNOHCA Midwest DivisionHC (RBC) [Mass/Vol]34.6 g/dL30.5 - 36.0 g/dLCox SouthV (RBC) [Entitic vol] 92.1 fL80.0 - 100.0 fLResearch Psychiatric CenterMonocytes/100 WBC (Bld)8.7 %[facility] Neutrophils/100 WBC (Bld)74.8 %[facility] Psychiatric CenterRBC (Bld) [#/Vol]4.17 10*6/uLLow 4.20 - 6.00 m/uLAMERICAN FORK HOSPITAL HealthcareNo Panel Informationon [id number] and review of laboratory resultsNormalCuniversity hospitals ahuja medical centerand [facility] Rehabilitation Hospitalpecimen Type: BLOOD SPECIMEN Ordering Facility: [facility] Address: [address] [place] [address] Original Ordering Provider: JOHN STEINLake [facility] Interpretation and review of laboratory resultsAbnormalUniversity Health Truman Medical Center HealthcareRadiology Study observation (narrative)[facility] WestRadiology Study observation (narrative)[facility] Psychiatric CenterNo Panel InformationOrdered By: Ccf Provider on [id number] ClinicALL LIPID PROFILE (FASTING)on 03-04-2024 CHOL HDL RATIO4.1NOMS HealthcareComment on above:3.3 - 4.4 LOW RISK 4.4 - 7.1 AVERAGE RISK 7.1 - 11.0 MODERATE RISK >11.0 HIGH RISK Cholesterol [Mass/Vol]176 mg/dLNINF - 200 mg/dLNOMD HealthcareCholesterol in HDL [Mass/Vol]43 mg/dL40 - 60 mg/dLNOMD HealthcareComment on above:> or =60 mg/dl - LOW CARDIOVASCULAR RISK <40 mg/dl - HIGH CARDIOVASCULAR RISK Magnesium [Mass/Vol]115.8 mg/dLNOMD HealthcareComment on above:<100 mg/dl OPTIMAL 100-129 mg/dl NEAR OR ABOVE OPTIMAL 130-159 mg/dl BORDERLINE HIGH 160-189 mg/dl HIGH >190 mg/dl VERY HIGH Magnesium [Mass/Vol]17.2 mg/dLNOMS HealthcareTriglyceride [Mass/Vol]86 mg/dLNINF - 150 mg/dLNOMS HealthcareCLINISYNCNOMS HealthcareCT Chest W contrast [place] [id number]: 1. Stable appearance of patchy groundglass opacities [...] any questions regarding this interpretation, please call [phone]. If you are unable to reach us at the number above, please feel free to contact [facility] at [phone].DIVISION OF RADIOLOGY* * *Final Report* * * [...] images: No additional findings. DIVISION OF RADIOLOGYProvider, [facility] [place] - 10/17/2023 * * *Final Report* * [...] any questions regarding this interpretation, please call [phone]. If you are unable to reach us at the number above, please feel free to contact [facility] eRadiology at [phone]. [facility]* * *Final Report* * * DATE OF [...] any questions regarding this interpretation, please call [phone]. If you are unable to reach us at the number above, please feel free to contact [facility] eRadiology at [phone]. [phone]^AGFA_IDC^SI^ACNCCFRadiology, Radiologist, - 10/17/2023 * * *Final Report* [...] any questions regarding this interpretation, please call [phone]. If you are unable to reach us at the number above, please feel free to contact [facility] eRadiology at [phone]. [phone]^AGFA_IDC^SI^ACN NOMS HealthcareCT Chest W contrast IVOrdered By: Ccf Provider on 10-17-2023 [facility] W Auto Differential panel (Bld)on [id number] (Bld) [#/Vol]NINFClevelashe memorial hospital ClinicBasophils/100 WBC (Bld)0.6 %[facility] Differential cell count method Nom (Bld)AutoCleveland ClinicEosinophils (Bld) [#/Vol]0.05 10*3/uLNINFLake County Memorial Hospital - WestEosinophils/100 WBC (Bld)1.6 %[facility] - WestErythrocyte distribution width (RBC) [Ratio]13.8 %11.5 - 15.0 %[facility] - WestHematocrit (Bld) [Volume fraction]37.9 %Low39.0 - 51.0 %[facility] Hemoglobin (Bld) [Mass/Vol]12.6 g/dLLow13.0 - 17.0 g/dLLake County [facility] Hospital - WestImmature granulocytes (Bld) [#/Vol]NINFClevelMercy Health Perrysburg HospitalImmature granulocytes/100 WBC (Bld)0.6 %[facility] WestInterpretation and review of laboratory results AbnormalLake County Memorial Hospital - WestLymphocytes (Bld) [#/Vol]0.48 10*3/uLLowLake [facility] Lymphocytes/100 WBC (Bld)15.6 %Community Memorial HospitalH (RBC) [Entitic mass]30.1 pg 26.0 - 34.0 pgCAultman HospitalHC (RBC) [Mass/Vol]33.2 g/dL30.5 - 36.0 g/dL [facility] Memorial HospitalV (RBC) [Entitic vol]90.7 fL80.0 - 100.0 fLCWestern Reserve Hospital Monocytes (Bld) [#/Vol]0.32 10*3/uLNINFLake County Memorial Hospital - WestMonocytes/100 WBC (Bld) 10.4 %[facility] - WestNeutrophils (Bld) [#/Vol]2.19 10*3/uLL[facility] Neutrophils/100 WBC (Bld)71.2 %[facility] - WestNucleated RBC (Bld) [#/Vol]NINF [facility] WestNucleated RBC/100 WBC (Bld) [Ratio]0.0 %/100 WBCLake County Memorial Hospital - West Platelet mean volume (Bld) [Entitic vol]9.1 fL9.0 - 12.7 [facility] Platelets (Bld) [#/Vol]183 10*3/St. Francis HospitalRBC (Bld) [#/Vol]4.18 10*6/uL Low4.20 - 6.00 m/[facility]. Francis HospitalWBC (Bld) [#/Vol]3.08 10*3/uLLowUniversity Hospitals Elyria Medical CenterCT NECK SOFT TISSUE W IVCONon 10-16-2023* * [...] any questions regarding this interpretation, please call [phone]. If you are unable to reach us at the number above, please feel free to contact [facility] at [phone]. [id number]^AGFA_IDC^SI^ACNCCFRadiology, Radiologist, - 10/16/2023 * * *Final Report* [...] any questions regarding this interpretation, please call [phone]. If you are unable to reach us at the number above, please feel free to contact [facility] eRadiology at [phone]. [id number]^AGFA_IDC^SI^ACN NOMS HealthcareCT Neck W contrast [place] 09-78-2087KCSOISTOFL: Primary: NI-RADS 1. Expected post-treatment changes in [...] any questions regarding this interpretation, please call [phone]. If you are unable to reach us at the number above, please feel free to contact [facility] at [phone].DIVISION OF RADIOLOGY* * *Final Report* * * [...] of the intrathoracic contents. DIVISION OF RADIOLOGYProvider, [facility] [place] - 10/16/2023 * * *Final Report* * [...] any questions regarding this interpretation, please call [phone]. If you are unable to reach us at the number above, please feel free to contact [facility] eRadiology at [phone]. [facility] WestComprehensive metabolic 2000 panelOrdered By: Moustapha Calderon on [id number] [Mass/Vol]4.4 g/dL3.9 - 4.9 g/dLLake Leelanau ClinicALP [Catalytic activity/Vol]48 U/L38 - 113 U/LCleveland ClinicALT [Catalytic activity/Vol]13 U/L10 - 54 U/LCleveland ClinicAnion gap [Moles/Vol]11 mmol/L9 - 18 mmol/L [facility] WestAST [Catalytic activity/Vol]15 U/L14 - 40 U/LCleveland Clinic Bilirubin [Mass/Vol]0.5 mg/dL0.2 - 1.3 mg/dLLake Leelanau ClinicCalcium [Mass/Vol] 9.7 mg/dL8.5 - 10.2 mg/dLLake Leel[place] ClinicChloride [Moles/Vol]105 mmol/L97 - 105 mmol/LCleveland ClinicCO2 [Moles/Vol]26 mmol/L22 - 30 mmol/LCleveland Clinic Creatinine [Mass/Vol]1.34 mg/dLHigh0.73 - 1.22 mg/dLLake Leelanau ClinicGFR/1.73 sq M.predicted among non-blacks MDRD (S/P/Bld) [...] eGFRmay not accurately reflect actual GFR.Glucose [Mass/Vol]135 mg/bLApiu77 - 99 mg/dLLake [facility] Hospital [facility] Comment on above:The Stateless Diabetes Association (ADA) provides guidance for cutoff [...] Standards of Medical Care in Diabetes 2016, Stateless Diabetes Association. Diabetes Care. 2016.39(Suppl 1). Interpretation and review of laboratory resultsAbnormalCleveland ClinicPotassium [Moles/Vol]4.5 mmol/L3.7 - 5.1 mmol/LClevelashe memorial hospital ClinicProtein [Mass/Vol]6.7 g/dL 6.3 - 8.0 g/dLToledo Hospitalodium [Moles/Vol]142 mmol/L136 - 144 mmol/L [facility] - WestUrea nitrogen [Mass/Vol]22 mg/dL9 - 24 mg/dLMercy Health Defiance Hospital ClinicNo Panel Informationon [id number] ClinicRadiology Study observation (narrative)[facility] WestRadiology Study observation (narrative) NOMS HealthcareCT Chest W contrast [place] [id number]: 1. Since 03/14/2023, near complete resolution of [...] any questions regarding this interpretation, please call [phone]. If you are unable to reach us at the number above, please feel free to contact [facility] at [phone].DIVISION OF RADIOLOGY* * *Final Report* * * [...] noted are nonspecific noncalcified pulmonary nodules, with banking representative larger examples detailed as follows on [...] No abnormality in the imaged upper abdomen. Instrument Shop Supervisor (topogram) images: No additional findings. DIVISION OF RADIOLOGYProvider, [facility] [place] - 06/12/2023 * * *Final Report* * [...] noted are nonspecific noncalcified pulmonary nodules, with banking representative larger examples detailed as follows on [...] No abnormality in the imaged upper abdomen. Instrument Shop Supervisor (topogram) images: No additional findings. IMPRESSION IMPRESSION: [...] any questions regarding this interpretation, please call [phone]. If you are unable to reach us at the number above, please feel free to contact [facility] eRadiology at [phone]. [facility] WestRadiology Study observation (narrative)[facility] Chest W contrast IVOrdered By: Ccf Provider on [id number] ClinicCT Chest W contrast [place] [id number]: 1. On patient's prior PET/CT from 01/29/2023, [...] any questions regarding this interpretation, please call [phone]. If you are unable to reach us at the number above, please feel free to contact [facility] at [phone].DIVISION OF RADIOLOGY* * *Final Report* * * [...] No abnormality in the imaged upper abdomen. Instrument Shop Supervisor (topogram) images: No additional findings. DIVISION OF RADIOLOGYProvider, [facility] [place] - 03/15/2023 * * *Final Report* * [...] No abnormality in the imaged upper abdomen. Instrument Shop Supervisor (topogram) images: No additional findings. IMPRESSION IMPRESSION: [...] any questions regarding this interpretation, please call [phone]. If you are unable to reach us at the number above, please feel free to contact [facility] eRadiology at [phone]. [facility] Chest W contrast IVOrdered By: Ccf Provider on 03-15-2023 [facility] Chest W contrast [place] 77-66-1089Gqyuiabhm Study observation (narrative)[facility] - WestGLUCOSE, BLOOD (POC)on [id number] [Mass/Vol] 124 mg/oINrxymeij56 - 99 mg/dLLake County Memorial Hospital - WestComment on above:Location:[facility], [address] [place] [address] , [place], [place], [address] The Accu-Chek Inform II glucose meter has [...] above situations. 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 Neck: No suspicious hypermetabolic foci. Posttreatment [...] any questions regarding this interpretation, please call [phone]. If you are unable to reach us at the number above, please feel free to contact [facility] eRadiology at [phone].DIVISION OF RADIOLOGY* * *Final Report* * * [...] SKELETON: There are no hypermetabolic osseous lesions. Instrument Shop Supervisor (topogram) images:No additional findings. DIVISION OF RADIOLOGYProvider, [facility] [place] - 01/29/2023 * * *Final Report* * [...] SKELETON: There are no hypermetabolic osseous lesions. Instrument Shop Supervisor (topogram) images:No additional findings. IMPRESSION IMPRESSION: 1. [...] any questions regarding this interpretation, please call [phone]. If you are unable to reach us at the number above, please feel free to contact [facility] eRadiology at [phone]. 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-- W 18F-FDG IV Ordered By: Ccf Provider on 03-97-0489Sprsabduf ClinicComprehensive metabolic 2000 panelon [id number] [Mass/Vol]4.1 g/dL3.9 - 4.9 g/dLLake [facility] ALP [Catalytic activity/Vol]60 U/L38 - 113 U/LCleveland ClinicALT [Catalytic activity/Vol]27 U/L10 - 54 U/LCleveland ClinicAnion gap [Moles/Vol]10 mmol/L9 - 18 mmol/LCleveland ClinicAST [Catalytic activity/Vol]23 U/L14 - 40 U/LCleveland ClinicBilirubin [Mass/Vol]0.5 mg/dL0.2 - 1.3 mg/dLLake Leelanau ClinicCalcium [Mass/Vol]9.5 mg/dL8.5 - 10.2 mg/dLLake Leelan[place] ClinicChloride [Moles/Vol]96 mmol/L Low97 - 105 mmol/LCleveland ClinicCO2 [Moles/Vol]29 mmol/L22 - 30 mmol/L [facility] WestCreatinine [Mass/Vol]0.96 mg/dL0.73 - 1.22 mg/dLLake [facility] Estimated Glomerular Filtration Rate81 mL/min/1.73m>=60 mL/min/1.73mCleveland ClinicGlucose [Mass/Vol]105 mg/eTYibc08 - 99 mg/dLLake County Memorial Hospital - WestPotassium [Moles/Vol]4.2 mmol/L3.7 - 5.1 mmol/LCleveland ClinicProtein [Mass/Vol]6.8 g/dL 6.3 - 8.0 g/dLLake Leelanau ClinicSodium [Moles/Vol]135 mmol/SHli446 - 144 mmol/L [facility] - WestUrea nitrogen [Mass/Vol]22 mg/dL9 - 24 mg/dLSalem City Hospital W Auto Differential panel (Bld)on 30-19-0165Zcewrxipy (Bld) [#/Vol]<0.11 k/uL [facility] - WestBasophils/100 WBC (Bld)0.4 %[facility] - WestDifferential cell count method Nom (Bld)AutoCleveland ClinicEosinophils (Bld) [#/Vol]0.03 10*3/uL <0.46 k/uLLake County Memorial Hospital - WestEosinophils/100 WBC (Bld)1.3 %[facility] Erythrocyte distribution width (RBC) [Ratio]13.2 %11.5 - 15.0 %[facility] Hematocrit (Bld) [Volume fraction]36.2 %Low39.0 - 51.0 %[facility] Hemoglobin (Bld) [Mass/Vol]12.3 g/dLLow13.0 - 17.0 g/dLLake County Memorial Hospital - WestImmature granulocytes (Bld) [#/Vol]<0.10 k/uLLake County Memorial Hospital - WestImmature granulocytes/100 WBC (Bld)0.4 %[facility] - WestLymphocytes (Bld) [#/Vol]0.27 10*3/uLLow1.00 - 4.00 k/uLLake County [facility] Hospital - WestLymphocytes/100 WBC (Bld)12.0 %[facility] Memorial HospitalH (RBC) [Entitic mass]30.3 pg26.0 - 34.0 pgClevelWestbrook Medical CenterHC (RBC) [Mass/Vol] 34.0 g/dL30.5 - 36.0 g/dLCommunity Memorial HospitalV (RBC) [Entitic vol]89.2 fL80.0 - 100.0 fLCleveland ClinicMonocytes (Bld) [#/Vol]0.23 10*3/uL<0.87 k/uLLake Leelanau ClinicMonocytes/100 WBC (Bld)10.2 %[facility] - WestNeutrophils (Bld) [#/Vol]1.70 10*3/uL1.45 - 7.50 k/uLLake County Memorial Hospital - WestNeutrophils/100 WBC (Bld)75.7 %[facility] - WestNucleated RBC (Bld) [#/Vol]<0.01 k/[facility]. Francis HospitalNucleated RBC/100 WBC (Bld) [Ratio]0.0 /100 WBCLake County Memorial Hospital - WestPlatelet mean volume (Bld) [Entitic vol]9.5 fL9.0 - 12.7 fLClevelashe memorial hospital ClinicPlatelets (Bld) [#/Vol]97 10*3/xJIte917 - 400 k/uLLake County [facility] Hospital - WestRBC (Bld) [#/Vol]4.06 10*6/uLLow4.20 - 6.00 m/uL [facility] - WestWBC (Bld) [#/Vol]2.25 10*3/uLLow3.70 - 11.00 k/uLLake County [facility] Hospital - WestComprehensive metabolic 2000 panelon [id number] [Mass/Vol]4.2 g/dL 3.9 - 4.9 g/dLLake Leelan[place] ClinicALP [Catalytic activity/Vol]69 U/L38 - 113 U/L [place] ClinicALT [Catalytic activity/Vol]21 U/L10 - 54 U/LCleveland [facility] Anion gap [Moles/Vol]11 mmol/L9 - 18 mmol/LCleveland ClinicAST [Catalytic activity/Vol]14 U/L14 - 40 U/LCleveland ClinicBilirubin [Mass/Vol]0.6 mg/dL0.2 - 1.3 mg/dLLake Leel[place] ClinicCalcium [Mass/Vol]9.7 mg/dL8.5 - 10.2 mg/dLLake [place]el[place] ClinicChloride [Moles/Vol]99 mmol/L97 - 105 mmol/LCleveland ClinicCO2 [Moles/Vol]26 mmol/L22 - 30 mmol/LCleveland ClinicCreatinine [Mass/Vol]0.94 mg/dL0.73 - 1.22 mg/dLLake County Memorial Hospital - WestEstimated Glomerular Filtration Rate83 mL/min/1.73m>=60 mL/min/1.73mCleveland Lake Region HospitalGlucose [Mass/Vol]119 mg/rJRsqn56 - 99 mg/dLLake County [facility] Hospital - WestPotassium [Moles/Vol]4.1 mmol/L3.7 - 5.1 mmol/L [place] ClinicProtein [Mass/Vol]6.7 g/dL6.3 - 8.0 g/dLLake [place] ClinicSodium [Moles/Vol]136 mmol/L136 - 144 mmol/LCleveland Lake Region HospitalUrea nitrogen [Mass/Vol]20 mg/dL9 - 24 mg/dLSalem City Hospital W Auto Differential panel (Bld)on [id number] (Bld) [#/Vol]<0.11 k/uLLake County [facility] Hospital - WestBasophils/100 WBC (Bld)0.2 %[facility] WestDifferential cell count method Nom (Bld)AutoCleveland ClinicEosinophils (Bld) [#/Vol]0.04 10*3/uL<0.46 k/uLLake [facility] Eosinophils/100 WBC (Bld)0.8 %[facility] - WestErythrocyte distribution width (RBC) [Ratio]13.1 %11.5 - 15.0 %[facility] - WestHematocrit (Bld) [Volume fraction]39.8 %39.0 - 51.0 %[facility] - WestHemoglobin (Bld) [Mass/Vol]13.4 g/dL 13.0 - 17.0 g/dLLake County Memorial Hospital - WestImmature granulocytes (Bld) [#/Vol]<0.10 k/uL [facility] WestImmature granulocytes/100 WBC (Bld)0.4 %[facility] Lymphocytes (Bld) [#/Vol]0.40 10*3/uLLow1.00 - 4.00 k/uLLake [facility] Lymphocytes/100 WBC (Bld)7.8 %[facility] Memorial HospitalH (RBC) [Entitic mass]30.3 pg 26.0 - 34.0 pgCAultman HospitalHC (RBC) [Mass/Vol]33.7 g/dL30.5 - 36.0 g/dL [facility] HospitalV (RBC) [Entitic vol]90.0 fL80.0 - 100.0 fLCWestern Reserve Hospital Monocytes (Bld) [#/Vol]0.34 10*3/uL<0.87 k/uLLake [facility] Hospital - WestMonocytes/100 WBC (Bld)6.6 %[facility] - WestNeutrophils (Bld) [#/Vol]4.31 10*3/uL1.45 - 7.50 k/uL [facility] WestNeutrophils/100 WBC (Bld)84.2 %[facility] - WestNucleated RBC (Bld) [#/Vol]<0.01 k/uLLake [facility] Hospital - WestNucleated RBC/100 WBC (Bld) [Ratio]0.0 /100 WBCLake County Memorial Hospital - WestPlatelet mean volume (Bld) [Entitic vol]9.4 fL9.0 - 12.7 fLClevelMercy Health Perrysburg HospitalPlatelets (Bld) [#/Vol]198 10*3/uL150 - 400 k/uLLake County Memorial Hospital - WestRBC (Bld) [#/Vol]4.42 10*6/uL4.20 - 6.00 m/uLLake County Memorial Hospital - WestWBC (Bld) [#/Vol]5.12 10*3/uL3.70 - 11.00 k/uLLake [facility] Hospital - WestComprehensive metabolic 2000 panelon [id number] [Mass/Vol]4.4 g/dL3.9 - 4.9 g/dLLake Leelanau ClinicALP [Catalytic activity/Vol]70 U/L38 - 113 U/LCleveland ClinicALT [Catalytic activity/Vol]22 U/L10 - 54 U/LCleveland ClinicAnion gap [Moles/Vol]8 mmol/LLow9 - 18 mmol/LCleveland ClinicAST [Catalytic activity/Vol]15 U/L14 - 40 U/L [facility] - WestBilirubin [Mass/Vol]0.4 mg/dL0.2 - 1.3 mg/dLLake [facility] Calcium [Mass/Vol]9.8 mg/dL8.5 - 10.2 mg/dLLake County [facility] Hospital - WestChloride [Moles/Vol] 99 mmol/L97 - 105 mmol/LCleveland ClinicCO2 [Moles/Vol]28 mmol/L22 - 30 mmol/L [facility] WestCreatinine [Mass/Vol]0.83 mg/dL0.73 - 1.22 mg/dLLake [facility] Estimated Glomerular Filtration Rate90 mL/min/1.73m>=60 mL/min/1.73mCleveland Lake Region HospitalGlucose [Mass/Vol]125 mg/dXDneg97 - 99 mg/dLLake County Memorial Hospital - WestPotassium [Moles/Vol]4.1 mmol/L3.7 - 5.1 mmol/LCleveland ClinicProtein [Mass/Vol]6.8 g/dL 6.3 - 8.0 g/dLLake Leelanau ClinicSodium [Moles/Vol]135 mmol/DHmq579 - 144 mmol/L [facility] - WestUrea nitrogen [Mass/Vol]28 mg/dLHigh9 - 24 mg/dLLake County Memorial Hospital [facility] West PET+CT Guidance for localization of tumor of Skull base to mid-thigh-- W 18F-FDG [place] [id number]: 1. NECK: * Intensely FDG avid left [...] any questions regarding this interpretation, please call [phone]. If you are unable to reach us at the number above, please feel free to contact [facility] at [phone].DIVISION OF RADIOLOGY* * *Final Report* * * [...] age-related degenerative changes. No destructive osseous lesions. Instrument Shop Supervisor (topogram) images: No additional findings. DIVISION OF RADIOLOGYProvider, [facility] [place] - 08/28/2022 * * *Final Report* * [...] age-related degenerative changes. No destructive osseous lesions. Instrument Shop Supervisor (topogram) images: No additional findings. IMPRESSION IMPRESSION: [...] any questions regarding this interpretation, please call [phone]. If you are unable to reach us at the number above, please feel free to contact [facility] eRadiology at [phone]. [facility] - WestPET+CT Guidance for localization of tumor of Skull base to mid-thigh-- W 18F-FDG IVOrdered By: Ccf Provider on 62-37-2329Jvhjnxqjg Clinic GLUCOSE, BLOOD (POC)on 70-69-6394Jjleqfa [Mass/Vol]137 mg/mGHansjhgn30 - 99 mg/dLLake County Memorial Hospital - WestComment on above:Location:[facility], [address] [place] [address] , [place], [place], [facility] The Accu-Chek Inform II glucose [...] above situations. Interpretation and review of laboratory resultsAbnormalCHarrison Community HospitalPET+CT Guidance for localization of tumor of Skull base to mid-thigh-- W 18F-FDG Kinga 09-15-6942Vruzshjkg Study observation (narrative)[facility] CBC W Auto Differential panel (Bld)on 23-63-9860Nnovttaeb (Bld) [#/Vol]0.05 10*3/uL<0.11 k/uLLake County Memorial Hospital - WestBasophils/100 WBC (Bld)0.8 %[facility] Differential cell count method Nom (Bld)AutoCleveland Lake Region HospitalEosinophils (Bld) [#/Vol]0.05 10*3/uL<0.46 k/uLLake County Memorial Hospital - WestEosinophils/100 WBC (Bld)0.8 % [facility] - WestErythrocyte distribution width (RBC) [Ratio]13.2 %11.5 - 15.0 % [facility] - WestHematocrit (Bld) [Volume fraction]43.8 %39.0 - 51.0 %[facility] - WestHemoglobin (Bld) [Mass/Vol]14.7 g/dL13.0 - 17.0 g/dLLake County Memorial Hospital [facility] West Immature granulocytes (Bld) [#/Vol]<0.10 k/uLLake County Memorial Hospital - WestImmature granulocytes/100 WBC (Bld)0.3 %[facility] - WestLymphocytes (Bld) [#/Vol]1.55 10*3/uL1.00 - 4.00 k/uLLake County Memorial Hospital - WestLymphocytes/100 WBC (Bld)25.7 %Community Memorial HospitalH (RBC) [Entitic mass]30.6 pg26.0 - 34.0 pgCAultman HospitalHC (RBC) [Mass/Vol]33.6 g/dL30.5 - 36.0 g/dLLake County Memorial Hospital - WestMCV (RBC) [Entitic vol]91.3 fL80.0 - 100.0 fLCleveland ClinicMonocytes (Bld) [#/Vol]0.51 10*3/uL<0.87 k/uL [facility] ClinicMonocytes/100 WBC (Bld)8.5 %[facility] [place] ClinicNeutrophils (Bld) [#/Vol]3.85 10*3/uL1.45 - 7.50 k/uLLake County Memorial Hospital - WestNeutrophils/100 WBC (Bld)63.9 %[facility] - WestNucleated RBC (Bld) [#/Vol]<0.01 k/uLLake County Memorial Hospital - WestNucleated RBC/100 WBC (Bld) [Ratio]0.0 /100 WBCLake County Memorial Hospital - WestPlatelet mean volume (Bld) [Entitic vol]9.4 fL9.0 - 12.7 fLClevelashe memorial hospital ClinicPlatelets (Bld) [#/Vol]340 10*3/uL150 - 400 k/uLLake County Memorial Hospital - WestRBC (Bld) [#/Vol]4.80 10*6/uL4.20 - 6.00 m/uLLake County Memorial Hospital - WestWBC (Bld) [#/Vol]6.03 10*3/uL3.70 - 11.00 k/uLLake County Memorial Hospital - WestComprehensive metabolic 2000 panelon 45-65-2882Izyxmpj [Mass/Vol]4.6 g/dL 3.9 - 4.9 g/dLLake Leelanau ClinicALP [Catalytic activity/Vol]66 U/L38 - 113 U/L [place] ClinicALT [Catalytic activity/Vol]16 U/L10 - 54 U/LCleveland [facility] Region Hospital Anion gap [Moles/Vol]8 mmol/LLow9 - 18 mmol/LCleveland ClinicAST [Catalytic activity/Vol]19 U/L14 - 40 U/LCleveland ClinicBilirubin [Mass/Vol]0.5 mg/dL0.2 - 1.3 mg/dLLake Leelanau ClinicCalcium [Mass/Vol]10.0 mg/dL8.5 - 10.2 mg/dLLake Leelanau ClinicChloride [Moles/Vol]102 mmol/L97 - 105 mmol/LCleveland ClinicCO2 [Moles/Vol]30 mmol/L22 - 30 mmol/LCleveland ClinicCreatinine [Mass/Vol]0.97 mg/dL0.73 - 1.22 mg/dLLake County Memorial Hospital - WestEstimated Glomerular Filtration Rate80 mL/min/1.73m>=60 mL/min/1.73mCleveland ClinicGlucose [Mass/Vol]101 mg/iMBqog03 - 99 mg/dLLake County Memorial Hospital - WestPotassium [Moles/Vol]4.5 mmol/L3.7 - 5.1 mmol/L [facility] ClinicProtein [Mass/Vol]7.5 g/dL6.3 - 8.0 g/dLToledo Hospitalodium [Moles/Vol]140 mmol/L136 - 144 mmol/LCleveland ClinicUrea nitrogen [Mass/Vol]18 mg/dL9 - 24 mg/dLLake County Memorial Hospital - WestPOINT OF CARE GLUCOSEon 02-50-4886Duircrx [Mass/Vol]149 mg/dLCritically bzxy92-139TmjHolmes County Joel Pomerene Memorial HospitalComment on above: Performed By: #### POCGLUC #### [facility] [address] [place] [address] Dr. 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 Correction, due 07/18/2025.[facility] CenterCB AUTO DIFFon 96-84-1515PFGD #0.0 103/ulNormal0.0-0.1[facility] Memorial HospitalComment on above: Performed By: #### CBC #### [facility] [address] [place] [address] Dr. Mikayla GalanBasophils/100 WBC (Bld)0.4 %Normal0.2-2.0The [facility] Comment on above:Performed By: #### CBC #### [facility] [address] [address] [address] Mikayla Amor #0.1 103/ulNormal0.0-0.7The [facility] HospitalComment on above: Performed By: #### CBC #### [facility] [address] [place] [address] Dr. Mikayla Gaonaosinophils/100 WBC (Bld)1.5 %Normal0.9-7.0The [facility] Comment on above:Performed By: #### CBC #### [facility] [address] [place] [address] Dr. Mikayla Gaonarythrocyte distribution width (RBC) [Ratio]13.2 %Qilqfo24.0-15.0 [facility] Memorial HospitalComment on above:Performed By: #### CBC #### [facility] [address] [place] [address] Dr. Mikayla GalanHematocrit (Bld) [Volume fraction]41.7 %Critically low42.0-54.0 [facility] Memorial HospitalComment on above:Performed By: #### CBC #### [facility] [address] [place] [address] Dr. Mikayla GalanHemoglobin (Bld) [Mass/Vol]13.9 g/dLCritically low14.0-18.0[facility] Memorial HospitalComment on above:Performed By: #### CBC #### [facility] [address] [place] [address] Dr. Mikayla Eden #0.02 10e3/ulNormal0.00-0.03The [facility] HospitalComment on above:Performed By: #### CBC #### [facility] [address] [place] [address] Dr. Mikayla Eden %0.4 %Normal0.0-0.5The [facility] HospitalComment on above: Performed By: #### CBC #### [facility] [address] [place] [address] Dr. Mikayla Domingo #1.1 103/ulCritically low1.2-3.8The [facility] Comment on above:Performed By: #### CBC #### [facility] [address] [address] [address] Mikayla Leónmphocytes/100 WBC (Bld)24.7 %Jzjbkc71.5-60.0The [facility] HospitalComment on above:Performed By: #### CBC #### [facility] [address] [address] [address] Mikayla LiuUAL DIFF REQNONormalThe [facility] HospitalComment on above: Performed By: #### CBC #### [facility] [address] [place] [address] Dr. Mikayla Castillo (RBC) [Entitic mass]30.5 bwGxoytd56.9-34.0The [facility] HospitalComment on above:Performed By: #### CBC #### [facility] [address] [place] [address] Dr. Mikayla Castillo (RBC) [Mass/Vol]33.3 g/vXApeuei66.9-35.2The [facility] HospitalComment on above:Performed By: #### CBC #### [facility] [address] [place] [address] Dr. Mikayla Castillo (RBC) [Entitic vol]91.4 mXMtqosv33.0-94.0The [facility] HospitalComment on above:Performed By: #### CBC #### [facility] [address] [place] [address] Dr. Mikayla Davidson #0.4 103/ulNormal0.3-0.8The [facility] HospitalComment on above:Performed By: #### CBC #### [facility] [address] [place] [address] Dr. Mikayla Del Rioocytes/100 WBC (Bld)8.4 %Normal1.7-12.0The [facility] Comment on above:Performed By: #### CBC #### [facility] [address] [place] [address] Dr. Mikayla Marr #2.9 103/ulNormal1.4-6.5The [facility] HospitalComment on above:Performed By: #### CBC #### [facility] [address] [place] [address] Dr. Mikayla GalanNeutrophils/100 WBC (Bld)64.6 %Xpknde98.0-75.0[facility] HospitalComment on above:Performed By: #### CBC #### [facility] [address] [place] [address] Dr. Mikayla GalanPlatelet mean volume (Bld) [Entitic vol]9.5 fLNormal9.5-13.5The Curtis HospitalComment on above:Performed By: #### CBC #### [facility] [address] [place] [address] Dr. Mikayla GalanPLT293 103/smNzniwv326-793Aoy [facility] HospitalComment on above: Performed By: #### CBC #### [facility] [address] [place] [address] Dr. Mikayla GalanRBC4.56 106/ulCritically low4.70-6.10The [facility] HospitalComment on above:Performed By: #### CBC #### [facility] [address] [place] [address] Dr. Mikayla GalanWBC4.5 103/ulNormal4.0-11.0The [facility] HospitalComment on above: Performed By: #### CBC #### [facility] [address] [place] [address] Dr. [address] GalanCT N[address] CONon 04-12-1521CR NECK [facility] CONEXAMINATION: CT NECK [facility] CON HISTORY: Tongue carcinoma follow-up [...] by: CHAU JUNG Date: 2022-07-27 13:04NoUniversity Hospitals TriPoint Medical CenterCovid-19 PCR (CVDTBH)on 43-40-8247NEIU-CoV-2 (COVID-19) RNA IRIS+probe Ql (Unsp spec)Not detectedNormalNOT DETECTEDThe [facility] Comment on above:Result Comment: This test is not yet approved or cleared by the [place] FDA. When there are no FDA-approved or cleared tests available, and other criteria are met, FDA can make tests available under an emergency access mechanism called an Emergency Use Authorization (EUA). The EUA for this test is supported by the [place] Coordinator of Health and Human Service's (HHS's) declaration [...] consistent with SARS-CoV-2.Performed By: #### POCGLUC #### [facility] [address] [address] [address] Mikayla GalanPROF CHEM 8 (BAS METB)on 59-77-6104Nrkml gap [Moles/Vol]10.2 mmol/LNormalThe [facility] HospitalComment on above:Performed By: #### BMP #### [facility] [address] [address] [address] Mikayla GalanCalcium [Mass/Vol]9.2 mg/dLNormal8.5-10.1The [facility] Comment on above:Performed By: #### BMP #### [facility] [address] [place] [address] Dr. Mikayla GalanChloride [Moles/Vol]103 mmol/CZlnlxs47-482Vbh [facility] Comment on above:Performed By: #### BMP #### [facility] [address] [place] [address] Dr. Mikayla GalanCO2 [Moles/Vol]31.3 mmol/JJzxxod91.0-32.0The [facility] Comment on above:Performed By: #### BMP #### [facility] [address] [place] [address] Dr. Mikayla GalanCreatinine [Mass/Vol]0.98 mg/dLNormal0.70-1.30The [facility] HospitalComment on above:Performed By: #### BMP #### [facility] [address] [place] [address] Dr. Mikayla GaonaGFR-AF CONGOLESE>60Normal>=60The [facility] HospitalComment on above:Performed By: #### BMP #### [facility] [address] [place] [address] Dr. Mikayla GaonaGFR-NON AF CONGOLESE>60Normal>=60The [facility] HospitalComment on above:Performed By: #### BMP #### [facility] [address] [place] [address] Dr. Mikayla GalanGlucose [Mass/Vol]133 mg/dLCritically hvrl90-164Unr Bull HospitalComment on above:Performed By: #### BMP #### [facility] [address] [address] [address] Mikayla GalanPotassium [Moles/Vol]4.5 mmol/LNormal3.5-5.1[facility] Comment on above:Performed By: #### BMP #### [facility] [address] [address] [address] Mikayla GalanSodium [Moles/Vol]140 mmol/SNzqyss181-741Oyz [facility] Comment on above:Performed By: #### BMP #### [facility] [address] [place] [address] Dr. Mikayla GalanUrea nitrogen [Mass/Vol]21.0 mg/dLCritically high7.0-18.0[facility] HospitalComment on above:Performed By: #### BMP #### [facility] [address] [place] [address] Dr. Mikayla GalanUrea nitrogen/Creatinine [Mass ratio]21.4 mg/mgNoUniversity Hospitals TriPoint Medical CenterComment on above:Performed By: #### BMP #### [facility] [address] [place] [address] Dr. Mikayla GalanPROTIMEon 20-69-4931FML Coag (PPP) [Relative time]1.04 {INR} NormalHolmes County Joel Pomerene Memorial HospitalComment on above:Performed By: #### PT, PTT #### [facility] [address] [place] [address] Dr. Mikayla Su GUIDELINESSEE BELOWSouthwest General Health CenterComment on above:Result Comment: DESIRED INR: 2.0 - 3.0 CONDITIONS NOT LISTED BELOW 2.5 - 3.5 FOR PROSTHETIC HEART VALVE REPLACEMENT 2.5 - 3.5 RECURRENT THROMBOSIS Performed By: #### PT, PTT #### [facility] [address] [place] [address] Dr. Mikayla GalanPT Coag (PPP) [Time]11.0 sNormal9.0-11.6ThBerger Hospital Comment on above:Performed By: #### PT, PTT #### [facility] [address] [place] [address] Dr. Mikayla GalanPTHonorhealth Scottsdale [facility] 09-83-7803oDUY Coag (Bld) [Time]28.6 wBsxibf78.3-36.2The [facility] HospitalComment on above:Performed By: #### POCGLUC #### [facility] [address] [place] [address] Dr. Mikayla GalanPathology Noteon 04-95-3749Zvioosiyd Note [id number]#1.00CD:127NormMercy Health Perrysburg HospitalOutside Colonoscopyon 35-84-8405Pfvynwn Colonoscopy [id number]#1.00CD:127NoThe Bellevue HospitalPOINT OF CARE GLUCOSEon 81-92-9538Qndkseh [Mass/Vol]94 mg/sVQbbfnv48-771 The [facility] HospitalComment on above:Performed By: #### POCGLUC #### [facility] [address] [place] [address] Dr. Mikayla GalanLab Reportson 80-28-2828Hby Reports [id number]#1.00CD:127NoThe Bellevue HospitalCovid-19 PCR (CVDTBH)on 76-67-4462DXST-CoV-2 (COVID-19) RNA IRIS+probe Ql (Unsp spec)Not detectedNormalNOT DETECTEDThe [facility] HospitalComment on above: Result Comment: This test is not yet approved or cleared by the [place] FDA. When there are no FDA-approved or cleared tests available, and other criteria are met, FDA can make tests available under an emergency access mechanism called an Emergency Use Authorization (EUA). The EUA for this test is supported by the [place] of Health and Human Service's (HHS's) declaration [...] consistent with SARS-CoV-2.Performed By: #### POCGLUC #### [facility] [address] [place] [address] Dr. Mikayla Lawrence for Procedure/Surgeryon 10-29-4263Ylyawyc for Procedure/[id number]#1.00CD:127[facility] CenterUS THYROIDon 17-17-0909VH THYROIDEXAMINATION: US THYROID HISTORY: Goiter COMPARISON: No [...] Electronically authenticated by: QUANG JOHNSON Date: 2022-06-11 07:17[facility] CenterProvider Letteron [id number] Letter May 15, 2022 [address] [place] [id number] MANISH ROOT 1945 Dear Manish , We have been trying to reach you with no success. It is important that you return our call regarding your referral from Dr. Nelson upon receiving this letter. Also, at the time of your call, please provide us with your current information. Thank you for your prompt attention to this matter. Sincerely, General Surgery [phone] Medical CenterCBC AUTO DIFFon 11-96-2088CSWT #0.0 103/ulNormal0.0-0.1The [facility] HospitalComment on above:Performed By: #### CBC #### [facility] [address] [address] [address] Mikayla GalanBasophils/100 WBC (Bld)0.6 %Normal0.2-2.0The [facility] Comment on above:Performed By: #### CBC #### [facility] [address] [place] [address] Dr. Mikayla Amor #0.1 103/ulNormal0.0-0.7The [facility] HospitalComment on above: Performed By: #### CBC #### [facility] [address] [place] [address] Dr. Mikayla Gaonaosinophils/100 WBC (Bld)1.4 %Normal0.9-7.0The [facility] Comment on above:Performed By: #### CBC #### [facility] [address] [place] [address] Dr. Mikayla Gaonarythrocyte distribution width (RBC) [Ratio]12.6 %Zkjxwj41.0-15.0 The [facility] HospitalComment on above:Performed By: #### CBC #### [facility] [address] [place] [address] Dr. Mikayla GalanHematocrit (Bld) [Volume fraction]41.8 %Critically low42.0-54.0 The [facility] HospitalComment on above:Performed By: #### CBC #### [facility] [address] [place] [address] Dr. Mikayla GalanHemoglobin (Bld) [Mass/Vol]13.9 g/dLCritically low14.0-18.0The [facility] HospitalComment on above:Performed By: #### CBC #### [facility] [address] [place] [address] Dr. Mikayla Eden #0.03 10e3/ulNormal0.00-0.03The [facility] HospitalComment on above:Performed By: #### CBC #### [facility] [address] [place] [address] Dr. Mikayla Eden %0.6 %Critically high0.0-0.5The [facility] HospitalComment on above:Performed By: #### CBC #### [facility] [address] [address] [address] Mikayla Domingo #1.0 103/ulCritically low1.2-3.8The [facility] Comment on above:Performed By: #### CBC #### [facility] [address] [address] [address] Mikayla Leónmphocytes/100 WBC (Bld)19.9 %Critically low20.5-60.0The [facility] HospitalComment on above:Performed By: #### CBC #### [facility] [address] [place] [address] Dr. Mikayla Teixeira DIFF REQNONormalThe [facility] HospitalComment on above: Performed By: #### CBC #### [facility] [address] [place] [address] Dr. Mikayla Castillo (RBC) [Entitic mass]31.0 otRpvzzi91.9-34.0The [facility] HospitalComment on above:Performed By: #### CBC #### [facility] [address] [place] [address] Dr. Mikayla Castillo (RBC) [Mass/Vol]33.3 g/pZYtvctb25.9-35.2The [facility] HospitalComment on above:Performed By: #### CBC #### [facility] [address] [place] [address] Dr. Mikayla Castillo (RBC) [Entitic vol]93.3 vVBclquk53.0-94.0The [facility] HospitalComment on above:Performed By: #### CBC #### [facility] [address] [address] [address] Mikayla Davidson #0.5 103/ulNormal0.3-0.8The [facility] HospitalComment on above:Performed By: #### CBC #### [facility] [address] [place] [address] Dr. Mikayla Del Rioocytes/100 WBC (Bld)8.9 %Normal1.7-12.0The [facility] Comment on above:Performed By: #### CBC #### [facility] [address] [address] [address] Mikayla Marr #3.5 103/ulNormal1.4-6.5The [facility] HospitalComment on above:Performed By: #### CBC #### [facility] [address] [address] [address] Mikayla Nevilleutrophils/100 WBC (Bld)68.6 %Bhgkss19.0-75.0The [facility] HospitalComment on above:Performed By: #### CBC #### [facility] [address] [place] [address] Dr. Mikayla Petersenlet mean volume (Bld) [Entitic vol]9.6 fLNormal9.5-13.5The [facility] HospitalComment on above:Performed By: #### CBC #### [facility] [address] [place] [address] Dr. Mikayla GalanPLT280 103/fpToimwp096-598Jhz [facility] HospitalComment on above: Performed By: #### CBC #### [facility] [address] [place] [address] Dr. Miakyla GalanRBC4.48 106/ulCritically low4.70-6.10The [facility] HospitalComment on above:Performed By: #### CBC #### [facility] [address] [place] [address] Dr. Mikayla GalanWBC5.1 103/ulNormal4.0-11.0The [facility] HospitalComment on above: Performed By: #### CBC #### [facility] [address] [place] [address] Dr. Mikayla GalanGLYCOHEMOGLOBIN A1Con 71-10-7430KCM RECOMMENDATIONSEE BELOWNormal [facility] HospitalComformerly [facility] on above:Result Comment: ADA RECOMMENDED LIMIT 4.0 - 6.0 ADA THERAPEUTIC TARGET < 7.0 ACTION SUGGESTED > 7.0Performed By: #### A1C #### [facility] [address] [place] [address] Dr. Mikayla GalanGlucose [Mass/Vol]183 mg/dLNormalThe [facility] HospitalComment on above:Performed By: #### A1C #### [facility] [address] [place] [address] Dr. Mikayla GalanHbA1c (Bld) [Mass fraction]8.0 %Critically high4.5-6.2The [facility] HospitalComment on above:Performed By: #### A1C #### [facility] [address] [place] [address] Dr. Mikayla GalanPROF 14(COMP METB)on 77-08-0950Mxxleei [Mass/Vol]3.8 g/dLNormal 3.4-5.0The [facility] HospitalComment on above:Performed By: #### CMP #### [facility] [address] [place] [address] Dr. Mikayla GalanAlbumin/Globulin [Mass ratio]1.2 {ratio}NormalThe [facility] HospitalComment on above:Performed By: #### CMP #### [facility] [address] [place] [address] Dr. Mikayla PeñaP [Catalytic activity/Vol]111 U/CAyospl02-831Yvk [facility] HospitalComment on above:Performed By: #### CMP #### [facility] [address] [place] [address] Dr. Mikayla Esparza [Catalytic activity/Vol]50 U/QFsbebm85-76Qem [facility] HospitalComment on above:Performed By: #### CMP #### [facility] [address] [place] [address] Dr. Mikayla Vergara gap [Moles/Vol]11.5 mmol/LNormalThe [facility] Comment on above:Performed By: #### CMP #### [facility] [address] [place] [address] Dr. Mikayla GalanAST [Catalytic activity/Vol]27 U/EUcktse33-78Kdd [facility] HospitalComment on above:Performed By: #### CMP #### [facility] [address] [place] [address] Dr. Mikayla GalanBilirubin [Mass/Vol]0.5 mg/dLNormal0.2-1.0The [facility] Comment on above:Performed By: #### CMP #### [facility] [address] [place] [address] Dr. Mikayla GalanCalcium [Mass/Vol]9.0 mg/dLNormal8.5-10.1The [facility] Comment on above:Performed By: #### CMP #### [facility] [address] [address] [address] Mikayla GalanChloride [Moles/Vol]101 mmol/VGegnes43-601Bch [facility] Comment on above:Performed By: #### CMP #### [facility] [address] [place] [address] Dr. Mikayla GalanCO2 [Moles/Vol]27.7 mmol/VNkenca88.0-32.0[facility] Comment on above:Performed By: #### CMP #### [facility] [address] [place] [address] Dr. Mikayla GalanCreatinine [Mass/Vol]1.17 mg/dLNormal0.70-1.30The [facility] HospitalComment on above:Performed By: #### CMP #### [facility] [address] [place] [address] Dr. Mikayla GaonaGFR-AF CONGOLESE>60Normal>=60The [facility] HospitalComment on above:Performed By: #### CMP #### [facility] [address] [place] [address] Dr. Mikayla GaonaGFR-NON AF CONGOLESE=60Normal>=60[facility] HospitalComment on above:Performed By: #### CMP #### [facility] [address] [place] [address] Dr. Mikayla GalanGlobulin (S) [Mass/Vol]3.3 g/dLNormalThe [facility] HospitalComment on above:Performed By: #### CMP #### [facility] [address] [place] [address] Dr. Mikayla GalanGlucose [Mass/Vol]233 mg/dLCritically sccp75-896PvpHolmes County Joel Pomerene Memorial HospitalComment on above:Performed By: #### CMP #### [facility] [address] [address] [address] Mikayla GalanPotassium [Moles/Vol]4.2 mmol/LNormal3.5-5.1[facility] Comment on above:Performed By: #### CMP #### [facility] [address] [address] [address] Mikayla GalanProtein [Mass/Vol]7.1 g/dLNormal6.4-8.2[facility] Comment on above:Performed By: #### CMP #### [facility] [address] [address] [address] Mikayla GalanSodium [Moles/Vol]136 mmol/LDnspcb374-478KdhHolmes County Joel [facility]rene Memorial Hospital Comment on above:Performed By: #### CMP #### [facility] [address] [address] [address] Mikayla GalanUrea nitrogen [Mass/Vol]15.0 mg/dLNormal7.0-18.0[facility] HospitalComment on above:Performed By: #### CMP #### [facility] [address] [address] [address] Mikayla Rinaldi nitrogen/Creatinine [Mass ratio]12.8 mg/mgNormalThBerger HospitalComment on above:Performed By: #### CMP #### [facility] [address] [address] [address] Mikayla GalanPhysicicat Referralon [id number] Referral [id number]#[id number]:127[facility] Vital Signs Date TimeVital SignValuePerforming GnwoguzhtPyuvdaxv26-64-6559 11:43-0400Body phjyvh042.2 cmMason Johnson MD Work Phone: [facility] Goryyqvcrc20-61-7462 11:43-0400Body mass index (BMI) [Ratio]30.85 kg/c9CvpyooMason Johnson MD Work Phone: [phone] [place], [place] [address]Yzetfprgfc30-24-4296 11:43-0400Body noinit70.36 kgDalaron Johnson MD Work Phone: 1(740)[facility]-[address] [place], [place] [address]Cudplvicpx22-70-8867 11:43-0400Diastolic blood wovgwpby84 mm[Hg]Mason Johnson MD Work Phone: 1(042)[facility]-[address] [place], [place] [address]Cfmxutwjcc26-17-8757 11:43-0400Heart rate70 /min Mason Johnson MD Work Phone: 1(437)[facility] [place], [place] [address]Kmqfxefwpt45-05-4702 11:43-5625YdR2% (BldA) [Mass fraction]97 %Mason Johnson MD Work Phone: 1(050)[facility] [place], [place] [address]Kgfcizfkij89-65-3835 11:43-0400Systolic blood gkrgzdos465 mm[Hg]Mason Johnson MD Work Phone: 1(444)[facility] [place], [place] [address]Tmnelmoylr06-03-9011 08:00-0400Body zelgdi294.2 cmSerene Morales MD Work Phone: 1(880)[address] [place], [place] 4162210-14-2025 08:00-0400Body mass index (BMI) [Ratio]31.32 kg/a5HpymxnSerene Morales MD Work Phone: 1(599)[address] [place], [place] 4162210-14-2025 08:00-0400Body .72 kgSerene Morales MD Work Phone: 1(100)[address] [place], [place] 4162210-14-2025 08:00-0400Diastolic blood njwiizhv61 mm[Hg]Serene Morales MD Work Phone: 1(550)[address] [place], [place] 4162210-14-2025 08:00-0400Heart rate74 /min Serene Morales MD Work Phone: [phone])[address] [place], [place] [address] CenterJmkeukurqa54-07-2809 08:00-0400Systolic blood gqhugbxg375 mm[Hg]Serene Morales MD Work Phone: 1(441)[facility] CenterHvrfzsotzo37-52-8253 10:56-0400Body wnvycv270.2 cmDalaron Johnson MD Work Phone: 1(265)[facility] [place], [place] [address]Peazexfgme61-26-3414 10:56-0400Body mass index (BMI) [Ratio]31.32 kg/b6ZjowdmMason Johnson MD Work Phone: NOKindred HospitalIupyuqqbmv91-66-8177 10:56-0400Body .72 kgMason Johnson MD Work Phone: NOKindred HospitalZppsvhvnyf82-82-7761 10:56-0400Diastolic blood xrembtux87 mm[Hg]Mason Johnson MD Work Phone: [facility] CenterHiudxkianu47-50-1462 10:56-0400Heart rate64 /min Mason Johnson MD Work Phone: [facility] CenterGvcuoexbpo41-88-1633 10:56-4349CcE4% (BldA) [Mass fraction]97 %Mason Johnson MD Work Phone: NOKindred HospitalQcwpihutir96-82-8767 10:56-0400Systolic blood metykzvu254 mm[Hg]Mason Johnson MD Work Phone: [facility] CenterKoufrcbzkl16-90-3982 08:10-0400Body .2 cmSerene Morales MD Work Phone: [facility] CenterQwhdniasdj24-16-6235 08:10-0400Body mass index (BMI) [Ratio]31.48 kg/h6VcfhhlSerene Morales MD Work Phone: [facility] CenterUrqvgaggbr97-60-8437 08:10-0400Body patmlg20.17 kgSerene Morales MD Work Phone: [facility] CenterLkgblrtqua76-51-0349 08:10-0400Diastolic blood zfddohji41 mm[Hg]Serene Morales MD Work Phone: [facility] CenterZvgctvkdrt38-79-0260 08:10-0400Heart rate57 /min Serene Morales MD Work Phone: [facility] CenterQztogsnokn71-07-2826 08:10-0400Systolic blood zqgacaqv014 mm[Hg]Serene Morales MD Work Phone: [facility] CenterFhripfbaey94-61-9553 09:01-0400Body hdizzu292.2 cmMason Johnson MD Work Phone: NOKindred HospitalXswyhrpvuz33-40-2870 09:01-0400Body mass index (BMI) [Ratio]31.17 kg/j1YwyqfiMason Johnson MD Work Phone: NOKindred HospitalMruoagmnfs74-62-2679 09:01-0400Body hhgono01.27 kgMason Johnson MD Work Phone: NOKindred HospitalCuchewrdcw53-10-6167 09:01-0400Diastolic blood qsnxqtep52 mm[Hg]Mason Johnson MD Work Phone: NOKindred HospitalIxmwaiogzr98-73-4399 09:01-0400Heart rate60 /min Mason Johnson MD Work Phone: [phone] HospitalClcftflkmk86-84-3919 09:01-5906YdS2% (BldA) [Mass fraction]96 %Mason Johnson MD Work Phone: [phone] HospitalPluoxhrgda44-34-0017 09:01-0400Systolic blood mm[Hg]Mason Johnson MD Work Phone: NOKindred HospitalUowrscfzvj16-52-6180 09:31-0400Body upmusu475.2 cmMason Johnson MD Work Phone: [phone] HospitalJnzehedvzk54-62-7379 09:31-0400Body mass index (BMI) [Ratio]31.48 kg/l7TlnhwnMason Johnson MD Work Phone: [phone] HospitalBtdkkzqbht15-60-6569 09:31-0400Body zpxuen89.17 kgMason Johnson MD Work Phone: NOKindred HospitalYbdjukixww76-31-2881 09:31-0400Diastolic blood pokfsovs64 mm[Hg]Mason Johnson MD Work Phone: NOKindred HospitalThjeqrhpdb86-06-8952 09:31-0400Heart rate58 /min Mason Johnson MD Work Phone: NOKindred HospitalPmhxoghaqr34-72-9577 09:31-6239YuK5% (BldA) [Mass fraction]95 %Mason Johnson MD Work Phone: 1(558)483-[address] [place], [place] [address]Fgwdwoujrw42-79-7023 09:31-0400Systolic blood mm[Hg]Mason Johnson MD Work Phone: [facility] CenterYhvmurmtxx88-40-3076 10:33-0400Body .2 cmDalaron Johnson MD Work Phone: [facility] CenterLcdtmjjodk27-22-8396 10:33-0400Body mass index (BMI) [Ratio]31.32 kg/o4SwzfneMason Johnson MD Work Phone: [facility] CenterTkwaahzthr30-33-9392 10:33-0400Body lqibqo95.72 kgMason Johnson MD Work Phone: [facility] CenterWomswhasmh59-45-7334 10:33-0400Diastolic blood kpxbyzkv97 mm[Hg]Mason Johnson MD Work Phone: [facility] CenterKvgohokvmh51-05-7264 10:33-0400Heart rate56 /min Mason Johnson MD Work Phone: [facility] CenterXqquqlwydg46-14-7334 10:33-1410RlC8% (BldA) [Mass fraction]95 %Mason Johnson MD Work Phone: [facility] CenterXovocgbetf56-88-6527 10:33-0400Systolic blood zmmdnbwa983 mm[Hg]Mason Johnson MD Work Phone: [facility] CenterStxfoiredx50-44-0592 10:50-0400Body lkeuup880.9 cmVwagner England MD Work Phone: [facility]04-30-2025 10:50-0400Body mass index (BMI) [Ratio]32.92 kg/r9ShrrpJohn England MD Work Phone: [facility]04-30-2025 10:50-0400Body temperature 97.9 [degF]John England MD Work Phone: [facility]04-30-2025 10:50-0400Body .7 kgJohn England MD Work Phone: [facility]04-30-2025 10:50-0400Diastolic blood nadoamba44 mm[Hg]John England MD Work Phone: [facility]04-30-2025 10:50-0400Heart rate55 /min John England MD Work Phone: [facility]04-30-2025 10:50-0400Respiratory rate 16 /minJohn England MD Work Phone: [facility]04-30-2025 10:50-7680AqU9% (BldA) [Mass fraction]97 %John England MD Work Phone: [facility]04-30-2025 10:50-0400Systolic blood mm[Hg]John England MD Work Phone: [facility]04-21-2025 10:52-0400Body cehigg441.2 cmMason Johnson MD Work Phone: [facility] CenterKclmahjpea35-08-3675 10:52-0400Body mass index (BMI) [Ratio]30.85 kg/k5KjqczzMason Johnson MD Work Phone: [facility] CenterXnhpqhskqj80-47-3625 10:52-0400Body obprme55.36 kgMason Johnson MD Work Phone: [facility] CenterFcrxqxhvje18-50-3704 10:52-0400Diastolic blood aitcklbe22 mm[Hg]Mason Johnson MD Work Phone: [facility] CenterDvmgpiqqjv94-38-7016 10:52-0400Heart rate52 /min Mason Johnson MD Work Phone: [facility] CenterYsjnqpzriw53-26-6908 10:52-5930RgR0% (BldA) [Mass fraction]96 %Mason Johnson MD Work Phone: [facility] CenterErvgzezrmp23-37-7407 10:52-0400Systolic blood rvzcermw507 mm[Hg]Mason Johnson MD Work Phone: [address] [address]Thrkcvzlar08-67-6251 08:01-0400Body fbomjd794.2 cmHilary Timmis MD Work Phone: [facility] CenterNxzndsicow63-23-1461 08:01-0400Body mass index (BMI) [Ratio]30.85 kg/x6NwaonjSerene Morales MD Work Phone: [facility] CenterFdyplduutn82-30-0960 08:01-0400Body payemt68.36 kgSerene Morales MD Work Phone: [facility] CenterSvhnguhuco53-82-9967 08:01-0400Diastolic blood nwecmone27 mm[Hg]Serene Morales MD Work Phone: 1(036)[facility]-9[address] CenterVkdyyhckil77-38-3669 08:01-0400Heart rate54 /min Serene Morales MD Work Phone: [facility] CenterOvixroidzu32-23-2603 08:01-0400Systolic blood qyrgcffr519 mm[Hg]Serene Morales MD Work Phone: [facility] CenterNnlzgsukkj90-48-6075 15:41-0400Body wuxxzx964.2 cmDalaron Johnson MD Work Phone: [facility] CenterLuinuqfxnd81-39-7460 15:41-0400Body mass index (BMI) [Ratio]30.85 kg/g8WxinuwMason Johnson MD Work Phone: [facility] CenterXkjnzfltwj15-89-1725 15:41-0400Body ltepqs38.36 kgMason Johnson MD Work Phone: NOKindred HospitalGdmvovfetd16-96-1975 15:41-0400Diastolic blood egrjfiqk01 mm[Hg]Mason Johnson MD Work Phone: NOKind[facility] HospitalYravsaxzlq87-73-8453 15:41-0400Heart rate56 /min Mason Johnson MD Work Phone: NOKindred HospitalKnvdonnvzd10-83-2985 15:41-6545LnN9% (BldA) [Mass fraction]98 %Mason Johnson MD Work Phone: NOKindred HospitalSfclfcpgig24-06-5540 15:41-0400Systolic blood sarlbevq999 mm[Hg]Mason Johnson MD Work Phone: [facility] CenterJqnxrutsap34-20-6489 09:26-0500Body gmviqi443.2 cmMason Johnson MD Work Phone: [facility] CenterNrhxjdjraw43-90-6625 09:26-0500Body mass index (BMI) [Ratio]30.54 kg/z8WvpryaMason Johnson MD Work Phone: [facility] CenterHhbsbmmbcj16-26-8239 09:26-0500Body rvqtap98.45 kgMason Johnson MD Work Phone: 1(451)[address] [place], [place] [address]Mxsilcqvfi99-66-1926 09:26-0500Diastolic blood nfcfqqzu26 mm[Hg]Mason Johnson MD Work Phone: 1(788)[facility]-[address] [place], [place] [address]Rgsmqunsic22-86-9840 09:26-0500Heart rate74 /min Mason Johnson MD Work Phone: 1(429)[facility]-[address] [place], [place] [address]Fnottzswzn63-59-2468 09:26-6231KqC9% (BldA) [Mass fraction]98 %Mason Johnson MD Work Phone: 1(987)151-[address] [place], [place] [address]Mptwiqkrwm71-98-3206 09:26-0500Systolic blood dtwahfgx320 mm[Hg]Mason Johnson MD Work Phone: [facility] CenterHjgrpdfvjq67-63-6787 14:14-0500Body tefuhf778.2 cmSerene Morales MD Work Phone: [facility] CenterHxkzndvebh69-94-0963 14:14-0500Body mass index (BMI) [Ratio]29.91 kg/p7MuuzrgSerene Morales MD Work Phone: [facility] CenterSporbwakwp84-34-6399 14:14-0500Body euaday71.64 kgSerene Morales MD Work Phone: [facility] CenterBjczzumeko94-77-1262 14:14-0500Diastolic blood wpyxbkwu41 mm[Hg]Serene Morales MD Work Phone: [facility] CenterTeqrmdcopq23-43-6273 14:14-0500Heart rate57 /min Serene Morales MD Work Phone: 1(183)[facility]-5606[facility] CenterMqfzxtvjlg50-91-3558 14:14-0500Systolic blood baybfvqo027 mm[Hg]Serene Morales MD Work Phone: 1(326)[address] [place], [place] 4162212-10-2024 09:02-0500Body qjyfvu730.2 Donato Morales MD Work Phone: 1(647)[address] [place], [place] 4162212-10-2024 09:02-0500Body mass index (BMI) [Ratio]29.91 kg/y9SjvpeySerene Morales MD Work Phone: 1(047)[address] [place], [place] 416[address]12-10-2024 09:02-0500Body rejhyp97.64 kgSerene Morales MD Work Phone: 1(138)[address] [place], [place] 4162212-10-2024 09:02-0500Diastolic blood irfhawcq81 mm[Hg]Serene Morales MD Work Phone: 1(090)[address] [place], [place] 416[address]12-10-2024 09:02-0500Systolic blood pymbhhpj636 mm[Hg]Serene Morales MD Work Phone: 1(395)[address] [place] [address]-12-2024 08:57-0500Body waziui044.2 Donato Morales MD Work Phone: 1(694)[address] [place], [place] 4162211-12-2024 08:57-0500Body mass index (BMI) [Ratio]29.91 kg/i4SqwqkxSerene Morales MD Work Phone: 1(890)[address] [place], [place] 4162211-12-2024 08:57-0500Body zrhjiy49.64 kgSerene Morales MD Work Phone: 1(174)[address] [place] [address]-12-2024 08:57-0500Diastolic blood njlnuoas92 mm[Hg]Serene Morales MD Work Phone: 1(465)[address] [place] [address]-12-2024 08:57-0500Systolic blood ejoshrpc840 mm[Hg]Serene Morales MD Work Phone: 1(948)[address] [place], [place] 4162210-30-2024 15:06-0400Body sytzsp327.9 Hunter England MD Work Phone: [address] [place], [place] [address]10-30-2024 15:06-0400Body mass index (BMI) [Ratio]31.12 kg/a4MjhafJohn England MD Work Phone: [facility]10-30-2024 15:06-0400Body temperature 97.81 [degF]John England MD Work Phone: [facility]10-30-2024 15:06-0400Body duhams50.7 kgJohn England MD Work Phone: [facility]10-30-2024 15:06-0400Diastolic blood qfurfouk83 mm[Hg]John England MD Work Phone: [facility]10-30-2024 15:06-0400Heart rate60 /min John England MD Work Phone: [facility]10-30-2024 15:06-0400Respiratory rate 18 /minJohn England MD Work Phone: [facility]10-30-2024 15:06-6593QeO2% (BldA) [Mass fraction]98 %John England MD Work Phone: [facility]10-30-2024 15:06-0400Systolic blood ezijqewj943 mm[Hg]John England MD Work Phone: [facility]10-30-2024 14:36-0400Body mass index (BMI) [Ratio]31.12 kg/m2BARRON Feliz MD Work Phone: [facility]10-30-2024 14:36-0400Body temperature 97.81 [degF]BARRON Feliz MD Work Phone: [facility]10-30-2024 14:36-0400Body wlhaxk50.7 kgBARRON Feliz MD Work Phone: [facility]10-30-2024 14:36-0400Diastolic blood cosimftm37 mm[Hg]BARRON Feliz MD Work Phone: [facility]10-30-2024 14:36-0400Heart rate60 /min BARRON Feliz MD Work Phone: [facility]10-30-2024 14:36-0400Respiratory rate 18 /FaustoBARRON Feliz MD Work Phone: [facility]10-30-2024 14:36-1994ZnC7% (BldA) [Mass fraction]98 %BARRON Feliz MD Work Phone: [facility]10-30-2024 14:36-0400Systolic blood auqzofcz683 mm[Hg]BARRON Feliz MD Work Phone: [facility]10-24-2024 08:51-0400Body tdchid435.2 cmMason Johnson MD Work Phone: [facility] CenterCpiqxgsncv11-06-5033 08:51-0400Body mass index (BMI) [Ratio]30.23 kg/c1JhosvgMason Johnson MD Work Phone: [facility] CenterRehttqrqbo85-27-4202 08:51-0400Body pbofgp90.54 kgMason Johnson MD Work Phone: NOKind[facility] HospitalBtusceismf56-44-3762 08:51-0400Diastolic blood kqziroug90 mm[Hg]Mason Johnson MD Work Phone: NO[facility] HospitalLepghsbzyv91-82-5719 08:51-0400Heart rate63 /min Mason Johnson MD Work Phone: [facility] CenterCalnrsmsol84-74-4468 08:51-8825ZnT8% (BldA) [Mass fraction]100 %Mason Johnson MD Work Phone: NOKindred HospitalDjbahfhepe46-35-0792 08:51-0400Systolic blood husfghir655 mm[Hg]Mason Johnson MD Work Phone: NOKindred HospitalAcfgynilzb03-93-8096 09:17-0400Body .2 cmSerene Morales MD Work Phone: [address] [address]Qyymmtaovx38-67-4331 09:17-0400Body mass index (BMI) [Ratio]30.38 kg/h2FehrnpSerene Morales MD Work Phone: [facility] CenterHzuzuxnxsq26-28-1203 09:17-0400Body irhmib71 kg Serene Morales MD Work Phone: [facility] CenterWmhzyidpjd63-60-0701 09:17-0400Diastolic blood jvokhnpf74 mm[Hg]Serene Morales MD Work Phone: [facility] CenterTnymrykltz05-62-4029 09:17-0400Systolic blood mm[Hg]Serene Morales MD Work Phone: [facility] CenterIbcewogqbn38-36-6468 12:09-0400Body vgmebm304.18 [facility]Hol[facility]10-[facility]-2024 12:09-0400Body mass index (BMI) [Ratio]30.1 kg/t5TbdcpwjysHolzer Health System10-01-2024 12:09-0400Body httgzabqhnr02.3 [degF][facility]10-01-2024 12:09-0400Body wmuvsl84.2 kgHolzer Health System10-01-2024 12:09-0400Diastolic blood lmmmybet41 mm[Hg][facility]10-01-2024 12:09-0400 Heart rate63 /[facility]10-01-2024 12:09-0400 Respiratory rate18 /[facility]10-01-2024 12:09-0400 SaO2% (BldA) [Mass fraction]97 %[facility]10-01-2024 12:09-0400Systolic blood bonhfwdv666 mm[Hg][facility] 03-24-2024 08:59-0400Body lmadms979.2 Donato Morales MD Work Phone: [facility] CenterUaussddslh53-39-9148 08:59-0400Body mass index (BMI) [Ratio]29.6 kg/r9ZnmyswSerene Morales MD Work Phone: [facility] CenterWptzlgrytf28-08-5264 08:59-0400Body .73 kgSerene Morales MD Work Phone: 1(515)[address]09-17-2024 08:59-0400Diastolic blood cgkuipzm83 mm[Hg]Serene Morales MD Work Phone: 1(441)[address]09-17-2024 08:59-0400Systolic blood anzimhek471 mm[Hg]Serene Morales MD Work Phone: 1(669)[address] [place], [place] 4162208-20-2024 09:06-0400Body tmoegg203.2 cmSerene Morales MD Work Phone: 1(760)[address] [place], [place] 4162208-20-2024 09:06-0400Body mass index (BMI) [Ratio]29.91 kg/d6KqiqbeSerene Morales MD Work Phone: 1(010)[address] [place], [place] 4162208-20-2024 09:06-0400Body pfawtz47.64 kgSerene Morales MD Work Phone: 1(465)[address] [place], [place] 4162208-20-2024 09:06-0400Diastolic blood mm[Hg]Serene Morales MD Work Phone: 1(621)[address] [place], [place] 4162208-20-2024 09:06-0400Systolic blood xbolunuv647 mm[Hg]Serene Morales MD Work Phone: 1(143)[address]07-09-2024 13:29-0400Body uezgjo493.64 cmHolzer Health System07-09-2024 13:29-0400Body mass index (BMI) [Ratio]30.5 kg/u9EhlvvxteqHolzer Health System07-09-2024 13:29-0400Body svhlxhcuwfs91.4 [degF][facility]07-09-2024 13:29-0400Body mtjret38.89 kgHolzer Health System07-09-2024 13:29-0400Diastolic blood cclhepfa80 mm[Hg][facility]07-09-2024 13:29-0400 Heart rate66 /[facility]07-09-2024 13:29-0400 Respiratory rate18 /[facility]07-09-2024 13:29-0400 SaO2% (BldA) [Mass fraction]92 %[facility]07-09-2024 13:29-0400Systolic blood mm[Hg][facility] 11-06-2023 09:51-0400Body mass index (BMI) [Ratio]31.73 kg/m2BARRON Feliz MD Work Phone: [facility]05-01-2024 09:51-0400Body temperature 97.11 [degF]BARRON Feliz MD Work Phone: [facility]05-01-2024 09:51-0400Body oluqss79.4 kgBARRON Feliz MD Work Phone: [facility]05-01-2024 09:51-0400Diastolic blood jhxvzpce52 mm[Hg]BARRON Feliz MD Work Phone: [facility]05-01-2024 09:51-0400Heart rate58 /min BARRON Feliz MD Work Phone: [facility]05-01-2024 09:51-0400Respiratory rate 16 /FaustoBARRON Feliz MD Work Phone: [facility]05-01-2024 09:51-9841RjY4% (BldA) [Mass fraction]99 %BARRON Feliz MD Work Phone: [facility]05-01-2024 09:51-0400Systolic blood owvdvzqp567 mm[Hg]BARRON Feliz MD Work Phone: [facility]04-17-2024 10:56-0400Body mahsqx809.9 cmVwagner [place] MD Work Phone: [facility]04-17-2024 10:56-0400Body temperature 97.81 [degF]John England MD Work Phone: [facility]04-17-2024 10:56-0400Body egexdm67.5 kgJohn England MD Work Phone: [facility]04-17-2024 10:56-0400Diastolic blood uijbuipu94 mm[Hg]Jonh England MD Work Phone: [facility]04-17-2024 10:56-0400Heart rate54 /min John England MD Work Phone: [place] [address]-17-2024 10:56-0400Respiratory rate 16 /minJohn England MD Work Phone: [place] [address]-17-2024 10:56-0231OvZ7% (BldA) [Mass fraction]98 %John England MD Work Phone: [place] [address]-17-2024 10:56-0400Systolic blood mm[Hg]John England MD Work Phone: [facility]2023 11:14-0400Body temperature 97.11 [degF]BARRON Feliz MD Work Phone: [facility]2023 11:14-0400Body yifnqp49.2 kgBARRON Feliz MD Work Phone: [facility]2023 11:14-0400Diastolic blood dbzxzabx130 mm[Hg]BARRON Feliz MD Work Phone: [facility]2023 11:14-0400Heart rate58 /min BARRON Feliz MD Work Phone: [facility]2023 11:14-0400Respiratory rate 16 /FaustoBARRON Feliz MD Work Phone: [facility]2023 11:14-0084UzJ9% (BldA) [Mass fraction]98 %BARRON Feliz MD Work Phone: [facility]2023 11:14-0400Systolic blood mm[Hg]BARRON Feliz MD Work Phone: [facility]09-13-2023 12:55-0400Body xyabpe912.9 cmVwagner England MD Work Phone: [facility]09-13-2023 12:55-0400Body temperature 97.9 [degF]John England MD Work Phone: [facility]09-13-2023 12:55-0400Body .92 kgJohn England MD Work Phone: [facility]09-13-2023 12:55-0400Diastolic blood korfsusb08 mm[Hg]John England MD Work Phone: [facility]09-13-2023 12:55-0400Heart rate59 /min John England MD Work Phone: [facility]09-13-2023 12:55-0400Respiratory rate 16 /minJohn England MD Work Phone: [facility]09-13-2023 12:55-8596YfT5% (BldA) [Mass fraction]98 %John England MD Work Phone: [facility]09-13-2023 12:55-0400Systolic blood uidkukbz160 mm[Hg]John England MD Work Phone: [facility]08-02-2023 11:59-0400Body temperature 97.3 [degF]BARRON Feliz MD Work Phone: [facility]08-02-2023 11:59-0400Body .74 kgBARRON Feliz MD Work Phone: [facility]08-02-2023 11:59-0400Diastolic blood cbcxfdul16 mm[Hg]BARRON Feliz MD Work Phone: [facility]08-02-2023 11:59-0400Heart rate56 /min BARRON Feliz MD Work Phone: [facility]08-02-2023 11:59-0400Respiratory rate 16 /FaustoBARRON Feliz MD Work Phone: [facility]08-02-2023 11:59-0400Systolic blood mm[Hg]BARRON Feliz MD Work Phone: [facility]08-02-2023 11:29-0400Body ejcqgx451.9 cmVwagner England MD Work Phone: [facility]08-02-2023 11:29-0400Body temperature 97.3 [degF]John England MD Work Phone: [facility]08-02-2023 11:29-0400Body .92 kgJohn England MD Work Phone: [facility]08-02-2023 11:29-0400Diastolic blood koijciqv19 mm[Hg]John England MD Work Phone: [facility]08-02-2023 11:29-0400Heart rate56 /min John England MD Work Phone: [facility]08-02-2023 11:29-0400Respiratory rate 16 /minJohn England MD Work Phone: [facility]08-02-2023 11:29-0044EtJ6% (BldA) [Mass fraction]98 %John England MD Work Phone: [facility]08-02-2023 11:29-0400Systolic blood nrmcoqik311 mm[Hg]John England MD Work Phone: [facility]05-24-2023 14:37-0400Body temperature 96.69 [degF]BARRON Feliz MD Work Phone: [facility]05-24-2023 14:37-0400Body .47 kgBARRON Feliz MD Work Phone: [facility]05-24-2023 14:37-0400Diastolic blood zhpgetwa61 mm[Hg]BARRON Feliz MD Work Phone: [facility]05-24-2023 14:37-0400Heart rate66 /min BARRON Feliz MD Work Phone: [facility]05-24-2023 14:37-0400Respiratory rate 18 /FaustoBARRON Feliz MD Work Phone: [facility]05-24-2023 14:37-9280ZiJ5% (BldA) [Mass fraction]97 %BARRON Feliz MD Work Phone: [facility]05-24-2023 14:37-0400Systolic blood cckrperq390 mm[Hg]BARRON Feliz MD Work Phone: [facility]05-03-2023 09:21-0400Body mvdugi282.9 cmVwagner England MD Work Phone: [facility]05-03-2023 09:21-0400Body temperature 97.5 [degF]John England MD Work Phone: [facility]05-03-2023 09:21-0400Body ppvcyc32.11 kgJohn England MD Work Phone: [facility]05-03-2023 09:21-0400Diastolic blood uvgxofbs02 mm[Hg]John England MD Work Phone: [facility]05-03-2023 09:21-0400Heart rate58 /min John England MD Work Phone: [facility]05-03-2023 09:21-0400Respiratory rate 16 /minJohn England MD Work Phone: [facility]05-03-2023 09:21-6542BsB7% (BldA) [Mass fraction]100 %John England MD Work Phone: [place] [address]-03-2023 09:21-0400Systolic blood pejucshq355 mm[Hg]John England MD Work Phone: [facility]04-26-2023 14:05-0400Body odeypt011.9 cmNatalie Cadena APRN.[employer] Work Phone: [facility]04-26-2023 14:05-0400Body temperature 97.5 [degF]Natalie Cadena SYSTEM VALIDATION ENGINEER.[employer] Work Phone: [facility]04-26-2023 14:05-0400Body fyzovw85.2 kgNatalie Cadena APRN.[employer] Work Phone: [facility]04-26-2023 14:05-0400Diastolic blood sgptyknt39 mm[Hg]Natalie Cadena APRN.[employer] Work Phone: [address] [place], [place] [address]-26-2023 14:05-0400Heart rate67 /min Natalie Cadena APRN.[employer] Work Phone: [facility]04-26-2023 14:05-0400Respiratory rate 16 /minNatalie Cadena APRN.[employer] Work Phone: [facility]04-26-2023 14:05-7553GoC6% (BldA) [Mass fraction]98 %Natalie Cadena APRN.[employer] Work Phone: [facility]04-26-2023 14:05-0400Systolic blood vqgjxxys236 mm[Hg]Natalie Cadena APRN.[employer] Work Phone: [facility]04-20-2023 09:51-0400Body heispv192.9 cmNatalie Cadena APRN.[employer] Work Phone: [facility]04-20-2023 09:51-0400Body temperature 97 [degF]Natalie Cadena APRN.[employer] Work Phone: [facility]04-20-2023 09:51-0400Body qfeeqk45.29 kgNatalie Cadena APRN.[employer] Work Phone: [facility]04-20-2023 09:51-0400Diastolic blood cxanzhqn09 mm[Hg]Natalie Cadena SYSTEM VALIDATION ENGINEER.[employer] Work Phone: [place] [address]-20-2023 09:51-0400Heart rate63 /min Natalie Cadena SYSTEM VALIDATION ENGINEER.[employer] Work Phone: [place] [address]-20-2023 09:51-0400Respiratory rate 16 /minNatalie Cadena SYSTEM VALIDATION ENGINEER.[employer] Work Phone: [place] [address]-20-2023 09:51-1178CdF0% (BldA) [Mass fraction]99 %Natalie Cadena SYSTEM VALIDATION ENGINEER.[employer] Work Phone: [place] [address]-20-2023 09:51-0400Systolic blood mm[Hg]Natalie Cadena SYSTEM VALIDATION ENGINEER.[employer] Work Phone: [facility]04-14-2023 09:21-0400Body phploi714.9 cmVwagner England MD Work Phone: [facility]04-14-2023 09:21-0400Body temperature 97.11 [degF]John England MD Work Phone: [facility]04-14-2023 09:21-0400Body adniys35.74 kgJohn England MD Work Phone: [facility]04-14-2023 09:21-0400Diastolic blood gtyaqhnj28 mm[Hg]John England MD Work Phone: [place] [address]-14-2023 09:21-0400Heart rate56 /min John England MD Work Phone: [place] [address]-14-2023 09:21-0400Respiratory rate 16 /minJohn England MD Work Phone: [place] [address]-14-2023 09:21-8245GkO6% (BldA) [Mass fraction]98 %John England MD Work Phone: [facility]04-14-2023 09:21-0400Systolic blood vrdeigov841 mm[Hg]John England MD Work Phone: [facility]04-10-2023 10:40-0400Body temperature 97.39 [degF]BARRON Feliz MD Work Phone: [facility]04-10-2023 10:40-0400Body nilooc03.02 kgNA Agustín WELCH Work Phone: [facility]04-10-2023 10:40-0400Diastolic blood rufydbok97 mm[Hg]BARRON Feliz MD Work Phone: [facility]04-10-2023 10:40-0400Heart rate83 /min BARRON Feliz MD Work Phone: [facility]04-10-2023 10:40-0400Respiratory rate 16 /FaustoBARRON Feliz MD Work Phone: [facility]04-10-2023 10:40-0283CfR5% (BldA) [Mass fraction]100 %BARRON Feliz MD Work Phone: [facility]04-10-2023 10:40-0400Systolic blood mm[Hg]BARRON Feliz MD Work Phone: [facility]04-03-2023 11:07-0400Body temperature 98.2 [degF]Chair Jose Work Phone: [facility]04-03-2023 11:07-0400Diastolic blood nwegyymr27 mm[Hg]Chair [place] Work Phone: [facility]04-03-2023 11:07-0400Heart rate70 /min Chair Jose Work Phone: [facility]04-03-2023 11:07-0400Respiratory rate 18 /minChair Jose Work Phone: [facility]04-03-2023 11:07-4481NtD0% (BldA) [Mass fraction]99 %Chair Garcia Work Phone: [facility]04-03-2023 11:07-0400Systolic blood bkcmyecz717 mm[Hg]Chair Garcia Work Phone: [facility]04-03-2023 10:48-0400Body temperature 97.2 [degF]BARRON Feliz MD Work Phone: [facility]04-03-2023 10:48-0400Body enygji40.65 kgBARRON Feliz MD Work Phone: [facility]04-03-2023 10:48-0400Diastolic blood zyxmherr06 mm[Hg]BARRON Feliz MD Work Phone: [facility]04-03-2023 10:48-0400Heart rate67 /min BARRON Feliz MD Work Phone: [facility]04-03-2023 10:48-0400Respiratory rate 16 /FaustoBARRON Feliz MD Work Phone: [facility]04-03-2023 10:48-7145FfV7% (BldA) [Mass fraction]99 %BARRON Feliz MD Work Phone: [facility]04-03-2023 10:48-0400Systolic blood nutwqtwj437 mm[Hg]BARRON Feliz MD Work Phone: [facility]03-27-2023 11:40-0400Body dbeaph623.9 cmNatalie Cadena SYSTEM VALIDATION ENGINEER.[employer] Work Phone: [facility]03-27-2023 11:40-0400Body temperature 96.91 [degF]Natalie Cadena SYSTEM VALIDATION ENGINEER.[employer] Work Phone: [facility]03-27-2023 11:40-0400Body uxdwnc84.29 kgNatalie Cadena SYSTEM VALIDATION ENGINEER.[employer] Work Phone: [facility]03-27-2023 11:40-0400Diastolic blood xarthedx24 mm[Hg]Natalie Cadena SYSTEM VALIDATION ENGINEER.[employer] Work Phone: [facility]03-27-2023 11:40-0400Heart rate74 /min Natalie Cadena SYSTEM VALIDATION ENGINEER.[employer] Work Phone: [facility]03-27-2023 11:40-0400Respiratory rate 16 /minNatalie Cadena SYSTEM VALIDATION ENGINEER.[employer] Work Phone: [place] [address]-27-2023 11:40-7727HtH2% (BldA) [Mass fraction]99 %Natalie Cadena SYSTEM VALIDATION ENGINEER.[employer] Work Phone: [place] [address]-27-2023 11:40-0400Systolic blood mm[Hg]Natalie Cadena SYSTEM VALIDATION ENGINEER.[employer] Work Phone: [place] [address]-27-2023 10:47-0400Body temperature 96.91 [degF]BARRON Feliz MD Work Phone: [place] [address]-27-2023 10:47-0400Body .65 kgBARRON Feliz MD Work Phone: [place] [address]-27-2023 10:47-0400Diastolic blood mm[Hg]BARRON Feliz MD Work Phone: [place] [address]-27-2023 10:47-0400Heart rate74 /min BARRON Feliz MD Work Phone: [place] [address]-27-2023 10:47-0400Respiratory rate 16 /FaustoBARRON Feliz MD Work Phone: [place] [address]-27-2023 10:47-1828MfG9% (BldA) [Mass fraction]99 %BARRON Feliz MD Work Phone: [place] [address]-27-2023 10:47-0400Systolic blood yohbbkpe176 mm[Hg]BARRON Feliz MD Work Phone: [place] [address]-20-2023 10:40-0400Body temperature 97.59 [degF]BARRON Feliz MD Work Phone: [facility]03-20-2023 10:40-0400Body mkvdxi32.46 kgBARRON Feliz MD Work Phone: 1(353) 655-367413 [address]20-2023 10:40-0400Diastolic blood ienmhhag90 mm[Hg]BARRON Feliz MD Work Phone: [place] [address]-20-2023 10:40-0400Heart rate83 /min BARRON Feliz MD Work Phone: 1(844) 525-428613 [address]20-2023 10:40-0400Respiratory rate 18 /FaustoBARRON Feliz MD Work Phone: [place] [address]-20-2023 10:40-5491IvW2% (BldA) [Mass fraction]98 %BARRON Feliz MD Work Phone: [place] [address]-20-2023 10:40-0400Systolic blood ivvwttly613 mm[Hg]BARRON Feliz MD Work Phone: [place] [address]-13-2023 11:03-0400Body temperature 97.7 [degF]BARRON Feliz MD Work Phone: [place] [address]-13-2023 11:03-0400Body .82 kgBARRON Feliz MD Work Phone: [place] [address]-13-2023 11:03-0400Diastolic blood baolivac90 mm[Hg]BARRON Feliz MD Work Phone: 1(171) [phone] [address]13-2023 11:03-0400Heart rate75 /min BARRON Feliz MD Work Phone: [place] [address]-13-2023 11:03-0400Respiratory rate 18 /FaustoBARRON Feliz MD Work Phone: [place] [address]-13-2023 11:03-3445NnT3% (BldA) [Mass fraction]95 %BARRON Feliz MD Work Phone: [facility]03-13-2023 11:03-0400Systolic blood ausldvcj661 mm[Hg]BARRON Feliz MD Work Phone: [facility]03-06-2023 11:17-0500Body temperature 97.81 [degF]BARRON Feliz MD Work Phone: [facility]03-06-2023 11:17-0500Body rrooof75.73 kgBARRON Feliz MD Work Phone: [facility]03-06-2023 11:17-0500Diastolic blood fwgycaeu63 mm[Hg]BARRON Feliz MD Work Phone: [facility]03-06-2023 11:17-0500Heart rate72 /min BARRON Feliz MD Work Phone: [facility]03-06-2023 11:17-0500Respiratory rate 18 /FaustoBARRON Feliz MD Work Phone: [facility]03-06-2023 11:17-9544SjN7% (BldA) [Mass fraction]97 %BARRON Feliz MD Work Phone: [facility]03-06-2023 11:17-0500Systolic blood vfatfmtr480 mm[Hg]BARRON Feliz MD Work Phone: [facility]02-27-2023 11:09-0500Body bfqkoa820.9 cmVwagner England MD Work Phone: [facility]02-27-2023 11:09-0500Body temperature 97 [degF]John England MD Work Phone: [facility]02-27-2023 11:09-0500Body .46 kgJohn England MD Work Phone: [facility]02-27-2023 11:09-0500Diastolic blood ijmvxqir10 mm[Hg]John England MD Work Phone: [place] [address]-27-2023 11:09-0500Heart rate70 /min John England MD Work Phone: [place] [address]-27-2023 11:09-0500Respiratory rate 16 /minJohn England MD Work Phone: 1(548) [phone] [address]27-2023 11:09-7531OaK3% (BldA) [Mass fraction]97 %John England MD Work Phone: 1(954) [phone] [address]27-2023 11:09-0500Systolic blood lrtxorfu506 mm[Hg]John England MD Work Phone: [place] [address]-27-2023 09:57-0500Body temperature 97 [degF]BARRON Feliz MD Work Phone: [place] [address]-27-2023 09:57-0500Body fsdcuh86.19 kgBARRON Feliz MD Work Phone: [place] [address]-27-2023 09:57-0500Diastolic blood fajivgdi64 mm[Hg]BARRON Feliz MD Work Phone: [place] [address]-27-2023 09:57-0500Heart rate70 /min BARRON Feliz MD Work Phone: [place] [address]-27-2023 09:57-0500Respiratory rate 16 /FaustoBARRON Feliz MD Work Phone: [place] [address]-27-2023 09:57-0766DeQ4% (BldA) [Mass fraction]97 %BARRON Feliz MD Work Phone: [place] [address]27-2023 09:57-0500Systolic blood lkunvpqw105 mm[Hg]BARRON Feliz MD Work Phone: [facility]02-09-2023 15:39-0500Body .9 cmVwagner England MD Work Phone: 1(924) [phone] [address]09-2023 15:39-0500Body temperature 97.7 [degF]John England MD Work Phone: [facility]02-09-2023 15:39-0500Body lmnsas71.73 kgJohn England MD Work Phone: [facility]02-09-2023 15:39-0500Diastolic blood neusbxgx96 mm[Hg]John England MD Work Phone: [facility]02-09-2023 15:39-0500Heart rate64 /min John England MD Work Phone: [facility]02-09-2023 15:39-0500Respiratory rate 16 /minJohn England MD Work Phone: [facility]02-09-2023 15:39-1722FwZ7% (BldA) [Mass fraction]97 %John England MD Work Phone: [facility]02-09-2023 15:39-0500Systolic blood axtdqrrj118 mm[Hg]John England MD Work Phone: [facility]02-07-2023 10:01-0500Body fqnhso443.9 cmBARRON Feliz MD Work Phone: [facility]02-07-2023 10:01-0500Body temperature 97.7 [degF]BARRON Feliz MD Work Phone: [facility]02-07-2023 10:01-0500Body vfzrog59.82 kgBARRON Feliz MD Work Phone: [facility]02-07-2023 10:01-0500Diastolic blood loqnxppj90 mm[Hg]BARRON Feliz MD Work Phone: [facility]02-07-2023 10:01-0500Heart rate58 /min BARRON Feliz MD Work Phone: [facility]02-07-2023 10:01-0500Respiratory rate 16 /Fausto Agustín WELCH Work Phone: [facility]02-07-2023 10:01-4273LhQ3% (BldA) [Mass fraction]99 %NA Agustín WELCH Work Phone: [facility]02-07-2023 10:01-0500Systolic blood hsceusxy739 mm[Hg]BARRON Feliz MD Work Phone: [facility]12-07-2022 14:55-0500Blood Pressure LocationMichael NILL [facility] Hvgvyjli80-32-5056 14:55-0500Diastolic blood izhortnq88 mm[Hg]Renea NILL [facility] Uiiesfbp37-36-1612 14:55-0500Heart rate 60 /minMichael NILL [facility] Qjwcufqn38-24-6659 14:55-0500 Respiratory rate16 /minMichael NILL [facility] Erbbqmyh01-94-4371 14:55-0500Systolic blood tkrrwyky597 mm[Hg]Renea NILL [facility] [place] Encounters Encounter DateEncounter TypeCare ProviderFacilityStart: 04-30-2025 End: 35-92-0339Ygjrwt outpatient visit 25 minutesMason Johnson MD Work Phone: [facility] HospitalnceComment on above:Primary osteoarthritis of left hip (Primary Dx); 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, without long-term current use of insulin (HCC); 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; Abnormal EKG; History of heart artery stentStart: 04-30-2025 End: 59-28-5453lswywfopxzUXOIXN B BERRYNot AvailableStart: 04-29-2025 End: 93-95-4443Dokiwsfvy Result EncounterGeneric External Data ProviderNOMS External Department UnsolicitedStart: 04-29-2025 End: 81-31-0121Pwfeujqhn Result EncounterGeneric External Data ProviderNOMS External Department UnsolicitedStart: 04-29-2025 End: 61-16-1936ylelzixikgMuqixj Stepanic Jr-LAB Path Spec [facility] HospStart: 04-29-2025 End: 22-59-7410Jcwuesvn ReferredGeorge C Stepnaldo Jr DO-LAB Path Spec Curtis HospStart: 36-37-7707ehhuvrmaitSPFBN ABHYANKARFacility:[facility] Start: 04-28-2025 End: 89-95-3905Scrjdf flowsheetJr. Mechelle Boyer DO Work Phone: [facility]edicsStart: 04-28-2025 End: 58-90-8081Vixfvp flowsheetJr. Mechelle Boyer DO Work Phone: [facility]opaedicsStart: 04-28-2025 End: 11-84-0150Dakggr outpatient visit 40 minutesJr. Mechelle Boyer DO Work Phone: [facility] OrthopaedicsComment on above:Primary osteoarthritis of left hip (Primary Dx); Pre-op evaluationStart: 04-28-2025 End: 24-35-6372Aubptvrsmztyd examination doneJr. Mechelle Boyer DO Work Phone: [facility] HealthcareStart: 04-28-2025 End: 84-52-4228tzmoceygaaPW., MECHELLE BOYERNot AvailableStart: 04-20-2025 End: 90-84-1659Nlgcyg flowsheetSerene Morales MD Work Phone: [facility]olaryngologyStart: 04-20-2025 End: 08-85-1867Uiwqhn flowsEvangelist Morales MD Work Phone: [facility]olaryngologyStart: 04-20-2025 End: 79-65-1109Mlkqya outpatient visit 15 minutesSerene Morales MD Work Phone: [facility] OtolaryngologyComment on above: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)Start: 04-20-2025 End: 35-13-0898wrrrhgisxwXUMWFC H TIMMISNot AvailableStart: 04-19-2025 End: 61-87-0231Znlzufhud encounterJr. Mechelle Boyer DO Work Phone: [facility] [place] OrthopaedicsComment on above:hip DOM Start: 04-14-2025 End: 49-34-0585Osdnck flowsheetJr. Mechelle Boyer DO Work Phone: [facility]opaedicsStart: 04-14-2025 End: 04-93-5228Vdjzzm flowsheetJr. Mechelle Boyer DO Work Phone: [facility] [place] [facility]opaedicsStart: 04-14-2025 End: 96-17-3240Wbkyoa outpatient visit 25 minutesJr. Mechelle Boyer DO Work Phone: [facility] [place] OrthopaedicsComment on above:Left hip pain (Primary Dx); Pseudogout involving multiple joints; Primary osteoarthritis of left hipStart: 04-14-2025 End: 81-90-1682juouvpctivVA., MECHELLE BOYERAlma Rosa AvailableStart: 03-26-2025 End: 81-53-5704Ymspjx Leah Johnson MD Work Phone: [facility] MedinceStart: 03-26-2025 End: 39-72-2241Chictk flowsNiecy Johnson MD Work Phone: [facility] MedinceStart: 03-26-2025 End: 19-55-7395Llkflo outpatient visit 25 minutesDalaron Johnson MD Work Phone: [facility] MedinceComment on above:Primary osteoarthritis of left hip (Primary Dx); Pseudogout involving multiple joints; Primary hypertension ; 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, without long-term current use of insulin (HCC); Moderate mixed hyperlipidemia not requiring statin therapyStart: 03-26-2025 End: 75-80-3622dzgdhivifcXCBMMO B BERRYNot AvailableStart: 03-12-2025 End: 89-33-5158Yvgchielk Result EncounterMason Johnson MD Work Phone: [facility] External Department UnsolicitedStart: 03-12-2025 End: 18-99-9596Rkglmxiwi Result EncounterMason Johnson MD Work Phone: [facility] External Department UnsolicitedStart: 01-19-2025 End: 83-91-0916Uumijq Tahir Morales MD Work Phone: [facility] CI ENTStart: 01-19-2025 End: 76-25-7119Dohpoxmaikel Morales MD Work Phone: [facility] CI ENTStart: 01-19-2025 End: 23-55-3349gptfezgijrJBHPJK H TIMMISNot AvailableStart: 01-19-2025 End: 75-78-9933Aljdba outpatient visit 15 minutesSerene Morales MD Work Phone: [facility] CI ENTComment on above: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)Start: 01-06-2025 End: 04-07-2435Dcazey Leah Johnson MD Work Phone: [facility] CI FMStart: 01-06-2025 End: 04-45-7676Soediv Leah Johnson MD Work Phone: [facility] CI FMStart: 01-06-2025 End: 66-76-7617Iiqvgt outpatient visit 15 minutesMason Johnson MD Work Phone: [facility] CI FMComment on above:Left lumbar radiculitis (Primary Dx); Left hip painStart: 01-06-2025 End: 44-50-3781oicokaubqtRABFJL B BERRYNot AvailableStart: 12-28-2024 End: 91-52-1012Sgwxowsdj Result EncounterMason Johnson MD Work Phone: [facility] External Department UnsolicitedStart: 12-28-2024 End: 08-23-2216Awsrnykqi Result EncounterMason Johnson MD Work Phone: [facility] External Department UnsolicitedStart: 12-28-2024 End: 77-68-4826Uikpcl outpatient visit 25 minutesMason Johnson MD Work Phone: [facility] CI FMComment on above:Left hip pain (Primary Dx); Effusion of left knee; Acute pain of left kneeStart: 12-28-2024 End: 09-66-0065qqvrmivgvcWNKWTO B BERRYNot AvailableStart: 12-09-2024 End: 98-16-8183Vdtdrf flowsNiecy Johnson MD Work Phone: [facility] CI FMStart: 12-09-2024 End: 60-16-4350Hhfays Leah Johnson MD Work Phone: [facility] CI FMStart: 12-09-2024 End: 84-14-8255Syqpgpfid Result EncounterMason Johnson MD Work Phone: [facility] External Department UnsolicitedStart: 12-09-2024 End: 56-96-0886Kuakmd outpatient visit 25 minutesMason Johnson MD Work Phone: [facility] CI FMComment on above:Inflammatory arthritis (Primary Dx); Effusion of left knee; Acute pain of left knee; 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, without long-term current use of insulin ([facility])Start: 12-09-2024 End: 06-64-7896cftvxsfeljSJEQMU B BERRYNot AvailableStart: 12-02-2024 End: 96-36-6673Uqpwumiht Result EncounterGeneric External Data ProviderNOMS External Department UnsolicitedStart: 12-02-2024 End: 51-87-7271Foqzqvcky Result EncounterGeneric External Data ProviderNOMS External Department UnsolicitedStart: 12-02-2024 End: 37-34-5887tumxhizhuoHLEBJH B BERRY IIFacility:[facility] Start: 11-04-2024 End: 59-91-9177Zspcsn outpatient visit 15 minutesG Jeyson Feliz MD Work Phone: Radiation OncologyComment on above:Acquired hypothyroidism (Primary Dx)Start: 11-04-2024 End: 97-37-9813Ooqiqj outpatient visit 25 minutesJohn England MD Work Phone: Hematology/OncologyComment on above: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); Lung nodules; Stage 3 chronic kidney disease, unspecified whether stage 3a or 3b CKD (HCC) Start: 11-04-2024 End: 55-69-8794acrwzuzcklDVinh HICKEYRFacility:[facility] Start: 10-28-2024 End: 50-29-6700Viiwlrbzb Result EncounterGeneric External Data ProviderNOMS External Department UnsolicitedStart: 10-28-2024 End: 69-67-6867Wyhqtgtis Result EncounterGeneric External Data ProviderNOMS External Department UnsolicitedStart: 21-94-9024cwzsyqcedaBATJE ABHYANKAR [facility]: 10-26-2024 End: 13-94-1546Riczow flowsNiecy Johnson MD Work Phone: [facility] CI FMStart: 10-26-2024 End: 77-43-4569Ssumud flowsNiecy Johnson MD Work Phone: [facility] CI FMStart: 10-26-2024 End: 59-89-3644Fympgp outpatient visit 15 minutesMason Johnson MD Work Phone: [facility] CI FMComment on above:Primary osteoarthritis of left hip (Primary Dx); Neck pain on left side; Left hip pain; Spondylosis of cervical region without myelopathy or radiculopathy; Rheumatoid arthritis, unspecifiedStart: 10-26-2024 End: 73-98-2911ktamnxzwkeGYRXDJ B BERRYNot AvailableStart: 10-20-2024 End: 77-05-9216Nmknny flowsheetHilary H Timmis MD Work Phone: [facility] CI ENTStart: 10-20-2024 End: 47-99-2428Fhmign Tahir Morales MD Work Phone: [facility] CI ENTStart: 10-20-2024 End: 97-61-6471bacgrchxecYRINRD H TIMMISNot AvailableStart: 10-20-2024 End: 64-46-6897Lubcvq outpatient visit 15 minutesSerene Morales MD Work Phone: [facility] CI ENTComment on above:Cancer of base of tongue (CMS/HCC) (Primary Dx)Start: 10-13-2024 End: 11-44-7008Sanhkproz Result EncounterMason Johnson MD Work Phone: [facility] External Department UnsolicitedStart: 10-13-2024 End: 29-93-3249Lepgsbaxw Result EncounterMason Johnson MD Work Phone: [facility] External Department UnsolicitedStart: 10-12-2024 End: 42-14-0822Enyfco outpatient visit 25 minutesMason Johnson MD Work Phone: [facility] CI FMComment on above:Neck pain on left side (Primary Dx); Left hip pain; Osteoarthritis, unspecified osteoarthritis type, unspecified site; Stress incontinence of urineStart: 10-12-2024 End: 92-37-5311qajcntqjfmAZXRZL B BERRYNot AvailableStart: 10-12-2024 End: 24-31-4355Txfzbb flowsNiecy Johnson MD Work Phone: [facility] CI FMStart: 10-12-2024 End: 66-25-0184Iffiuj Leah Johnson MD Work Phone: [facility] CI FMStart: 09-17-2024 End: 64-01-1219Gfgrbt flowsUsha Stevens SYSTEM VALIDATION ENGINEER-[employer] Work Phone: [facility] SWS DERMStart: 09-17-2024 End: 21-47-6432Rutfsp flowsheetNatalie A Felter [employer] VALIDATION ENGINEER-[employer] Work Phone: [facility] SWS DERMStart: 09-17-2024 End: 47-66-0258holuyeddqsOMEJAOK A FELTERNot AvailableStart: 09-17-2024 End: 71-09-5803Lricmv outpatient visit 10 minutesNatalie Ricci Pierreer SYSTEM VALIDATION ENGINEER-[employer] Work Phone: noms SWS DERMComment on above:Seborrheic keratosis (Primary Dx); Actinic keratosis; Seborrheic keratosis, inflamedStart: 08-31-2024 End: 74-29-3182Ghehjq Leah Johnson MD Work Phone: [facility] CI FMStart: 08-31-2024 End: 71-05-7356Chvppw Leah Johnson MD Work Phone: N[facility]S CI FMStart: 08-31-2024 End: 74-31-2072Xligp of hemosiderin, quantMason Johnson MD Work Phone: NOL[facility] HealthcareStart: 08-31-2024 End: 78-05-0862Wkdzasx encounter procedureMason Johnson MD Work Phone: NOMS [...] insulin (CMS/HCC); Torticollis; Actinic keratosisStart: 08-31-2024 End: 06-06-0525vntitctnvmHRIDCH B BERRYNot AvailableStart: 07-21-2024 End: 96-40-8424Sodprt outpatient visit 15 minutesSerene Morales MD Work Phone: noMS CI ENTComment on above:Cancer of base of tongue (CMS/HCC) (Primary Dx)Start: 07-21-2024 End: 41-47-8494ridtqlpcrvGGEIER H TIMMISNot AvailableStart: 07-21-2024 End: 55-48-0166Etyyvg flowsEvangelist Morales MD Work Phone: NOMS CI ENTStart: 07-21-2024 End: 36-03-0401Mhxqmg Tahir Morales MD Work Phone: NOMS CI ENTStart: 07-15-2024 End: 12-14-0787Gfsbrbqo SupportMannie Rodrgiuez ROUGH PLANER TENDER Work Phone: NOMS CI FMComment on above:Need for vaccinationStart: 06-16-2024 End: 41-59-3567Rchzca Tahir Morales MD Work Phone: N[facility]S CI ENTStart: 06-16-2024 End: 45-67-0446Alyddw Tahir Morales MD Work Phone: N[facility] CI ENTStart: 06-16-2024 End: 41-31-4609lvjpzuujrdAIGVPE H TIMMISNot AvailableStart: 06-16-2024 End: 23-86-4635Aqsuhz outpatient visit 15 minutesHisravani Morales MD Work Phone: NOMS CI ENTComment on above:Cancer of base of tongue (CMS/HCC) (Primary Dx)Start: 05-26-2024 End: 64-43-2981Truzcg flowsheetNatalie A Felter SYSTEM VALIDATION ENGINEER-[employer]ER [employer] Work Phone: NOMS SWS DERMStart: 05-26-2024 End: 22-24-1332Jcbpan flowsheetNatalie A Felter SYSTEM VALIDATION ENGINEER-[employer] Work Phone: NOMS SWS DERMStart: 05-26-2024 End: 76-92-6328lckxsfmqgkDCEKPER A FELTERNot AvailableStart: 05-26-2024 End: 94-49-8570Kkixvs outpatient visit 10 minutesNatalie A Felter SYSTEM VALIDATION ENGINEER-[employer] Work Phone: noms SWS DERMComment on above:Seborrheic keratosis (Primary Dx); Actinic keratosisStart: 05-19-2024 End: 00-70-1639Metugh Tahir Morales MD Work Phone: N[facility]S CI ENTStart: 05-19-2024 End: 43-95-5358Ignayq Tahir Morales MD Work Phone: N[facility] CI ENTStart: 05-19-2024 End: 45-15-9040Dwicly outpatient visit 15 minutesSerene Morales MD Work Phone: noms CI ENTComment on above:Cancer of base of tongue (CMS/HCC) (Primary Dx)Start: 05-19-2024 End: 45-87-9925kjrbdeeljbEUEELQ H TIMMISNot AvailableStart: 05-18-2024 End: 49-26-6221MjytogBmcutown Fitzpatrick ROUGH PLANER TENDER Work Phone: noms CWM FMComment on above:Primary hypertension (CMS/HCC)Start: 05-06-2024 End: 66-34-5958Lebbjs outpatient visit 25 minutesJohn England MD Work Phone: Hematology/OncologyComment on above: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); Lung nodules; Stage 3 chronic kidney disease, unspecified whether stage 3a or 3b CKD (HCC) Start: 05-06-2024 End: 49-99-2853fyftezvckdFEOTO ABFALLONARFacility:[facility] Hospitaltart: 05-06-2024 End: 60-75-8420Fgpeyth encounter procedureG Jeyson Feliz MD Work Phone: Radiation OncologyComment on above:Head and neck cancer (HCC) (Primary Dx)Start: 04-30-2024 End: 98-37-8163Zkqsxrmaikel Johnson MD Work Phone: noms CI FMStart: 04-30-2024 End: 98-20-3400Liwtgx flowsNiecy Johnson MD Work Phone: noMS CI FMStart: 04-30-2024 End: 30-71-6121Olhbow outpatient visit 25 minutesMason Johnson MD Work Phone: noMS CI FMComment on above:Primary hypertension (CMS/HCC) (Primary Dx); Controlled type 2 diabetes mellitus without complication, without long-term current use of insulin (CMS/HCC); 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)Start: 04-23-2024 End: 56-29-6730Fcpsugarz Result EncounterGeneric External Data ProviderNOMS External Department UnsolicitedStart: 04-23-2024 End: 89-93-2469Gyukrando Result EncounterGeneric External Data ProviderNOMS External Department UnsolicitedStart: 04-23-2024 End: 58-25-2520Nvdeazzgbe hospital visit by physicianArrival Time Radiology Work Phone: Radiology Pet CTComment on above:Cancer of the base of tongue (HCC) [C01]Start: 04-21-2024 End: 45-78-2766Qkulxo flowsEvangelist Morales MD Work Phone: noms CI ENTStart: 04-21-2024 End: 99-21-0991Jihdqi flowsEvangelist Morales MD Work Phone: noms CI ENTStart: 04-21-2024 End: 50-76-7361Wlhzho outpatient visit 15 minutesSerene Morales MD Work Phone: noms CI ENTComment on above:Cancer of base of tongue (CMS/HCC) (Primary Dx)Start: 04-07-2024 End: 94-36-4071lpsqhvidnlKnbzjdnuaParma Community General Hospital Work Phone: Start: 04-07-2024 End: 82-55-9578Ceqaivf encounter procedureBlue [facility] [place] Work Phone: start: 03-24-2024 End: 50-00-6074Egiogz flowsEvangelist Morales MD Work Phone: noms CI ENTStart: 03-24-2024 End: 14-36-8283Gksned Tahir Morales MD Work Phone: noms CI ENTStart: 03-24-2024 End: 74-92-9379Hcnxcx outpatient visit 15 minutesHisravani Morales MD Work Phone: noms CI ENTComment on above:Cancer of base of tongue (CMS/HCC) (Primary Dx)Start: 03-04-2024 End: 97-66-9342Brawiljqm Result EncounterSeli Drake MD Work Phone: noms External Department UnsolicitedStart: 03-04-2024 End: 42-13-9399Tsjypqmvv Result EncounterSeli Drake MD Work Phone: noms External Department UnsolicitedStart: 02-25-2024 End: 05-88-0317Nukyal flowsEvangelist Morales MD Work Phone: noms CI ENTStart: 02-25-2024 End: 33-08-5223Qcuqaa Tahir Morales MD Work Phone: noms CI ENTStart: 02-25-2024 End: 53-95-3355Jdbrbr outpatient visit 15 minutesHisravani Morales MD Work Phone: noms CI ENTComment on above:Cancer of base of tongue (CMS/HCC) (Primary Dx)Start: 01-14-2024 End: 31-38-5446tqniddtfoyRiizhnieqParma Community General Hospital Work Phone: Start: 01-14-2024 End: 29-56-9713Hxqwlwt encounter procedureBlue [facility] [place] Work Phone: Start: 11-06-2023 End: 61-78-8862Scjhxdl encounter procedureYordan Feliz MD Work Phone: Radiation OncologyComment on above:Head and neck cancer (HCC) (Primary Dx)Start: 10-23-2023 End: 82-39-6425Manmbb outpatient visit 25 minutesJohn England MD Work Phone: Hematology/OncologyComment on above: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); Lung nodules; Stage 3 chronic kidney disease, unspecified whether stage 3a or 3b CKD (HCC) Start: 10-16-2023 End: 85-98-6226Msquuyxxx Result EncounterGeneric External Data ProviderNOMS External Department UnsolicitedStart: 10-16-2023 End: 44-27-1967Danfzepgh Result EncounterGeneric External Data ProviderNOMS External Department UnsolicitedStart: 76-80-2886Phokrjege encounterReaviva Bob RN Work Phone: Hematology/OncologyComment on above:Care Coordination (Results)Start: 10-16-2023 End: 21-23-6023Stixcpspxj hospital visit by physicianArrival Time Radiology Work Phone: Radiology Pet CTComment on above:Lung nodules [R91.8] Start: 06-12-2023 End: 69-17-5424Iloobchqxl hospital visit by physicianArrival Time Radiology Work Phone: Radiology Pet CTComment on above:Cancer of the base of tongue (HCC) [C01]Start: 91-84-0838Xiobbsb encounter procedureSerene Morales MD Work Phone: NOM[facility] HealthcareStart: 05-08-2023 End: 31-83-1598Ouollwn encounter procedureG Jeyson Feliz MD Work Phone: Radiation OncologyComment on above:Other specified disorders of thyroid (Primary Dx)Start: 03-20-2023 End: 20-87-0682Cfobzb outpatient visit 25 minutesVivemagan England MD Work Phone: Hematology/OncologyComment on above: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); Mass of right lungStart: 03-14-2023 End: 60-52-7927Uzrvdxrmpk hospital visit by physicianArrival Time Radiology Work Phone: Radiology Pet CTComment on above:Lung nodules [R91.8] Start: 02-06-2023 End: 60-11-1882MhvzvoJeffry Drake MD Work Phone: Hematology/OncologyComment on above:Hyperlipidemia, unspecified hyperlipidemia type (Primary Dx); Type 2 diabetes mellitus without complication, unspecified whether alf insulin use (HCC); Unspecified essential hypertensionLung nodule seen on imaging study (Primary Dx); Disorder of carbohydrate metabolism (HCC)Start: 02-06-2023 End: 83-58-4362Qhtqfp outpatient visit 25 minutesJohn England MD Work Phone: Hematology/OncologyComment on above: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); Mass of right lung; Lung nodulesStart: 01-29-2023 End: 12-51-6391Rxegjijvio hospital visit by physicianArrival Time Radiology Work Phone: Radeihufk Pet CTComment on above:Cancer of the base of tongue (HCC) [C01]Start: 11-28-2022 End: 96-30-0856Rlwbrbd encounter procedureG Jeyson Feliz MD Work Phone: Radiation OncologyComment on above: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)Start: 11-07-2022 End: 02-15-2353Iyjqps outpatient visit 25 minutesJohn England MD Work Phone: Hematology/OncologyComment on above: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); Chemotherapy-induced neutropenia (HCC); Stage 3 chronic kidney disease, unspecified whether stage 3a or 3b CKD (HCC) Start: 10-31-2022 End: 51-59-0678xijhjukpsvEboye [address] Work Phone: Hematology/OncologyComment on above: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); Stage 3 chronic kidney disease, unspecified whether stage 3a or 3b CKD (HCC) Start: 10-31-2022 End: 88-08-4329Knchzbm encounter procedureNatalie Cadena APRN.[employer]SEM[employer]ER [employer]TERY Work Phone: SANDUSKYComment on above:Head and neck cancer (HCC) (Primary Dx)Start: 10-25-2022 End: 17-08-2045dtpxxgxtysWjilz Martinez SYSTEM VALIDATION ENGINEER.BENCH ASSEMBLER BATTERY Work Phone: Hematology/OncologyComment on above: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); Chemotherapy-induced neutropenia (HCC)Start: 10-25-2022 End: 63-99-1655Dnmzwbv encounter procedureNatalie Cadena SYSTEM VALIDATION ENGINEER.BENCH ASSEMBLER [employer]TERY Work Phone: SANDUSKYStart: 05-24-7414Byvlzpo encounter procedureG Jeyson Feliz MD Work Phone: SANDUSKYStart: 69-74-6981Qpfgassst Oncology NoteG Jeyson Feliz MD Work Phone: Radiation OncologyComment on above:Completion Note Start: 10-19-2022 End: 05-80-1501ajsvznfkbaSwxgcxtnzq Kaetzel RD Work Phone: sANDUSKYStart: 10-19-2022 End: 41-01-5024Rvxuzduuh therapyJacdavid Gil RD Work Phone: Nutrition TherapyComment on above:Nutrition Counseling Start: 10-19-2022 End: 70-02-2874Ulybyq outpatient visit 25 minutesJohn England MD Work Phone: Hematology/OncologyComment on above: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); Chemotherapy-induced neutropenia (HCC)Start: 10-15-2022 End: 53-87-2791Qxsopzb encounter procedureG Jeyson Feliz MD Work Phone: Radiation OncologyComment on above:Head and neck cancer (HCC) (Primary Dx)Start: 80-50-1813Oinhmosbi encounterJohn England MD Work Phone: Radiation OncologyComment on above:skin irritation Start: 10-08-2022 End: 47-18-5822odkugcbihwPblrw [address] [place] Work Phone: Hematology/OncologyComment on above: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); Cancer of base of tongue (HCC)Start: 10-08-2022 End: 13-14-5480Duzjdzj encounter procedureG Jeyson Feliz MD Work Phone: Radiation OncologyComment on above:Head and neck cancer (HCC) (Primary Dx)Start: 10-05-2022 End: 67-04-6429rqcszosnazWlvnfhhbsj Kaadelsoel RD Work Phone: sANDUSKYStart: 10-05-2022 End: 42-86-3035Oahghzghe therapyJacqueline Louise RD Work Phone: Nutrition TherapyComment on above:Nutrition Counseling Start: 10-01-2022 End: 85-70-3491ayrhooftpjVbxwn [address] Work Phone: Hematology/OncologyComment on above: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); 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)Start: 10-01-2022 End: 19-68-0177Bdptbuy encounter procedureG Jeyson Feliz MD Work Phone: Radiation OncologyComment on above:Tongue cancer (HCC) (Primary Dx)Start: 09-24-2022 End: 19-20-8948Izlbfzj encounter procedureG Jeyson Feliz MD Work Phone: Radiation OncologyComment on above:Tongue cancer (HCC) (Primary Dx)Start: 09-21-2022 End: 90-74-7663kwrfafrfwxLbgngrpggq Kaetzel RD Work Phone: sANDUSKYStart: 09-21-2022 End: 13-39-8423Ggudstson therapyJacdavid Ruddyarmando [place] Work Phone: Nutrition TherapyComment on above:Nutrition Assessment Start: 09-17-2022 End: 43-53-1184qecnbajjbwSqguz [address] Work Phone: Hematology/OncologyComment on above: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); Cancer of the base of tongue (HCC)Start: 09-17-2022 End: 61-79-7829Tsfxisw encounter procedureG Jeyson Feliz MD Work Phone: Radiation OncologyComment on above:Tongue cancer (HCC) (Primary Dx)Start: 09-10-2022 End: 09-30-6233blucagunqqRfqvc [address] Work Phone: Hematology/OncologyComment on above: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)Start: 09-10-2022 End: 08-20-4783Yjsoptp encounter procedureYordan Feliz MD Work Phone: Radiation OncologyComment on above:Tongue cancer (HCC) (Primary Dx)Start: 02-34-9263Dmqzbuhdz encounterMarysol DENG Hematology/OncologyComment on above:Social Work ServicesStart: 09-06-2022 Telephone encounterReaviva Bob RN Work Phone: Hematology/OncologyComment on above:Care Coordination (C1D1 Post Treatment Call)Start: 09-03-2022 End: 29-67-9901iyzwrzwxguQxqmi [address] Work Phone: Hematology/OncologyComment on above: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)Start: 09-03-2022 End: 20-87-1046Ldwdpa outpatient visit 15 minutesJohn England MD Work Phone: Hematology/OncologyComment on above: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)Start: 09-03-2022 End: 63-39-7709Omnlhxc encounter procedureYordan Feliz MD Work Phone: Radiation OncologyComment on above:Tongue cancer (HCC) (Primary Dx)Start: 91-76-0337Hyedcommj encounterRafael Bob RN Work Phone: Hematology/OncologyComment on above:Care Coordination (Pt Questions)Start: 95-73-7823Yewwejygg encounterRafael Bob RN Work Phone: Hematology/OncologyComment on above:Care Coordination (PET Results)Start: 50-19-6614Gqscvanhp encounterRafael Bob RN Work Phone: Hematology/OncologyComment on above:Care Coordination (Pt Questions)Start: 08-27-2022 End: 44-09-5486Yarwkhqsxw hospital visit by physicianArrival Time Radiology Work Phone: Radiology Pet CTComment on above: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]Start: 01-77-9838Oxrythh encounter procedureCcf ProviderLake County [facility] DepartmentStart: 08-23-2022 End: 57-96-5787Zlneeqnoss hospital visit by physicianG Jeyson Feliz MD Work Phone: Radiology Pet CTStart: 08-23-2022 End: 05-67-3947Poygwrx encounter procedureG Jeyson Feliz MD Work Phone: Radiation OncologyComment on above:Tongue cancer (HCC) (Primary Dx)Start: 63-94-6493Rgosjmmrc Oncology NoteG Jeyson Feliz MD Work Phone: Radiation OncologyComment on above:Simulation Note Treatment PlanningStart: 50-74-0536Vhkgfbdkv encounterRafael Bob RN Work Phone: Hematology/OncologyComment on above:Care Coordination (Treatment Planning)Start: 58-36-5359Jvfoyhszp encounterRafael Bob RN Work Phone: Hematology/OncologyComment on above:Care Coordination (Treatment Planning)Start: 08-20-2022 End: 59-95-7400sglxbuprbrFngikvfssz Kaetzel RD Work Phone: sANDUSKYStart: 08-20-2022 End: 69-52-6133Ecznyhtqf therapyJasoledad Gil RD Work Phone: Nutrition TherapyComment on above:Nutrition Telephone Start: 70-69-9280Pepqdkx encounter procedureCcf ProviderLake County [facility] DepartmentStart: 08-16-2022 End: 99-29-6435Zzzmbc outpatient new 60 minutesJohn England MD Work Phone: Hematology/OncologyComment on above: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)Start: 50-88-4379Ntwliis encounter procedureCcf [facility] DepartmentStart: 49-03-7263Ngdinnknj encounterG Jeyson Feliz MD Work Phone: Radiation OncologyComment on above:Dental Clearance - Radiation TherapyStart: 90-49-1732bfltsuinogXpchjq Weyer RNRadiation Oncology Comment on above:Patient EducationStart: 08-14-2022 End: 06-24-9352Kwppjcc encounter procedureG Jeyson Feliz MD Work Phone: Radiation OncologyComment on above:Tongue cancer (HCC) (Primary Dx); Head and neck cancer (HCC)Start: 27-29-8647Dlkrdaalk for preprocedural laboratory examinationDR SERENE Keyona [facility] Hospitaltart: 07-31-2022 End: 13-34-8318Jdehbfp encounter procedureMichael R NILL General Surgery Nill/Said Curtis Start: 07-31-2022 End: 69-82-8917adivomufceDktpsbe R NILLFacility:[facility]tart: 07-27-2022 End: 55-67-1094tzfcaqyqfnJY SERENE TIMMISFacility:S4Jlzsk: 07-27-2022 End: 17-53-5375Xxwbkvtgy for preprocedural laboratory examinationDR SERENE GUZMANMISFacility:Y8Dulif: 07-18-2022 End: 14-11-6788iwbeblpqgiIjrjkal R NILLFacility:CD:[id number]: 07-11-2022 End: 98-40-9892pdlcrxklyfUE RENEA PARTIDAFacility:X8Iiczt: 06-13-2022 End: 07-01-9194gfdvrqhzasVrutcpf R NILLFacility: [place]vueStart: 06-13-2022 End: 57-26-9832Jsdobmt encounter procedureMichael R NILL General Surgery Nill/Said Curtis Start: 06-09-2022 End: 10-16-6588eqorxbjkynQP KIM E KNIGHTFacility:A7Orgyp: 54-88-8687oiclyvipqy Michael NILLFacility: BellevueStart: 02-27-2022 End: 44-06-6742bwbltgzivqLPPeter NELSONFacility:H1 Procedures DateProcedureProcedure DetailPerforming ClinicianStart: 00-42-1535Rghvpng of placement of stent for coronary artery diseaseHistory of heart artery stent Mason Johnson MD Work Phone: Start: 63-39-8714Lqxin hip unilateral with pelvis 1 viewGeneric External Data ProviderStart: 65-05-7643AYQ 12-LEADGeneric External Data ProviderStart: 12-73-4684NUU APTTGeneric External Data ProviderStart: 12-35-6464BHV CMP (CMP) (FOR REMOTE [facility] USE)Generic External Data ProviderStart: 17-04-5670QAKMVG PROTHROMBIN TIME INR W/O COUMGeneric External Data Provider Start: 39-17-0538Bfoex hip unilateral with pelvis 2-3 viewsJr. Mechelle Last Stepnaldo DO Work Phone: Start: 91-12-5226Kic any jt lower extrem w/o contrast matrAlecia Johnson MD Work Phone: Start: 47-74-8655RB LUMBAR SPINE 2 OR 3VDdaisy Johnson MD Work Phone: Start: 19-73-0725Jfwddrjiku examination knee 3 views Mason Johnson MD Work Phone: Start: 27-66-1913Wxlltvbuei glycosylated d8fXgkbatlaron Johnson MD Work Phone: Start: 00-30-0996KPO T3 SERPL-MCNCGeneric External Data ProviderStart: 20-24-3664DDB T4 SERPL-MCNCGeneric External Data Provider Start: 21-24-5750KHU TSH SERPL-ACNCGeneric External Data ProviderStart: 81-57-0218MW NECK SOFT TISSUE W IVCONGeneric External Data ProviderStart: 57-20-9547Kl thorax w/contrast materialGeneric External Data ProviderStart: 53-47-6731JEV CBC W AUTO DIFF BLDGeneric External Data ProviderStart: 10-13-2024 XR CERVICAL SPINE 2-3VDdaisy Johnson MD Work Phone: Start: 31-08-2280YA HIP LT MIN 2VDdaisy Johnson MD Work Phone: Start: 09-17-2024 End: 44-91-9478DRCJYHUPVZS SKIN LESIONNatalie A Felter SYSTEM VALIDATION ENGINEER-[employer] Work Phone: Start: 67-01-6985Gbgbwyocbo glycosylated n0cIzuonbMason Johnson MD Work Phone: Start: 99-84-9021PTUVNQKMNOG SKIN LESIONNatalie A Felter SYSTEM VALIDATION ENGINEER-[employer] Work Phone: Start: 55-09-2260NK NECK SOFT TISSUE W IVCONGeneric External Data ProviderStart: 15-06-7524Uq soft tissue neck w/contrast material John England MD Work Phone: Start: 63-90-6346Ab thorax w/contrast materialJohn England MD Work Phone: Start: 58-58-8607KRM CBC W AUTO DIFF BLDGeneric External Data ProviderStart: 55-86-0580CYX FERRITIN SERPL-MCNCGeneric External Data ProviderStart: 83-81-5851PBP FOLATE SERPL-MCNCGeneric External Data ProviderStart: 88-31-5949OKT IRON+TIBC PNL SERPLGeneric External Data Provider Start: 55-20-8766TZE VIT B12 SERPL-MCNCGeneric External Data ProviderStart: 09-98-2197Nstkv count complete auto&auto difrntl Angélica England MD Work Phone: Start: 14-72-3499CSH LIPID PROFILE (FASTING)Shaikh Vidal WELCH Work Phone: Start: 13-62-7938PP NECK SOFT TISSUE W IVCONGeneric External Data ProviderStart: 96-41-1810Kn soft tissue neck w/contrast material John England MD Work Phone: Start: 12-00-4737Bm thorax w/contrast Ozzy England MD Work Phone: Start: 77-93-7035Hhxzz count complete auto&auto difrntl Angélica England MD Work Phone: Start: 08-37-2668Fs thorax w/contrast Ozzy England MD Work Phone: Start: 24-32-8959Vd thorax w/contrast Ozzy England MD Work Phone: Start: 59-61-2878Xue imaging ct attenuation skull base mid-thighG Jeyson Feliz MD Work Phone: Start: 71-73-9014Ykmp bld gluc mntr dev cleared fda spec home useCcf ProviderStart: 55-37-0136DNM + DIFFJohn England MD Work Phone: Start: 20-68-6261Suzzyyvyzvmhy metabolic panelJohn England MD Work Phone: Start: 10-36-6524Nmprs count complete auto&auto difrntl wbcJohn England MD Work Phone: Start: 30-19-9674Fhqrx count complete auto&auto difrntl wbcVivek Jacquelyn WELCH Work Phone: Start: 02-54-7738Kea imaging ct attenuation skull base mid-thighG Jeyson Feliz MD Work Phone: Start: 63-96-4336Kqgt bld gluc mntr dev cleared fda spec home useCcf ProviderStart: 74-16-6847JNX screeningDR MANNIE NELSONComment on above:Performed By: #### PSAD #### [facility] [address] [place] [address] Dr. Mikayla GalanStart: 51-70-4125GfancsznznqVjpqzjc NILL Start: 50-85-8459FapjlpnshbgMblilnz NILL Start: 58-50-3338UqofgcepqtnNfxonyu NILL Start: 98-03-7101RdyzpeffzytHrgdzal NILL Start: 68-02-5003Ixmease catheterizationMichael NILL Start: 27-50-3038Kfzqesbcb of stent in cardiac conduit Renea NILL Start: 62-80-6772MyzvplfhpmfRylbgev NILL Start: 93-68-2750LgxrpulsdlnYkzhzes NILL Start: 54-84-2340Nzkauuu colectomyMichael NILL Comment on above:with colocolostomyBilateral extraction of cataractsMichael NILL Plan of Treatment DateCare ActivityDetailAuthorStart: 07-27-2673Qgqrzemt ScreeningDiabetes ScreeningLake Leelanau ClinicStart: 39-35-8152Umbugkuo ScreeningDiabetes Screening [place] [facility] ClinicStart: 94-32-1015Mckvigoz ScreeningDiabetes ScreeningToledo Hospitaltart: 82-46-3161Iugdd screening for proteinDiabetes: Urine Protein ScreeningAMERICAN FORK HOSPITAL HealthcareStart: 50-99-3302OBXAJKNX SCREENDIABETES SCREENToledo Hospitaltart: 72-53-6103Rihhriua ScreeningDiabetes ScreeningLake County Memorial Hospital [facility] Start: 46-67-3717VGGNBMBE SCREENDIABETES SCREENToledo Hospitaltart: 10-31-2025 DIABETES SCREENDIABETES SCREENToledo Hospitaltart: 21-15-9330OFNEWMSA SCREEN DIABETES SCREENToledo Hospitaltart: 22-88-1016ILUGMOBZ SCREENDIABETES SCREEN [facility] Hospitaltart: 86-44-5995YLTIVIBJ SCREENDIABETES SCREENLake County Memorial Hospital - [facility] Start: 38-61-2569QDZLZKXU SCREENDIABETES SCREENToledo Hospitaltart: 09-24-2025 DIABETES SCREENDIABETES SCREENToledo Hospitaltart: 79-44-9064EJYLTZIS SCREEN DIABETES SCREENToledo Hospitaltart: 72-88-0274TYSANBYM SCREENDIABETES SCREEN [facility] Hospitaltart: 20-09-6560ALHLVFSI SCREENDIABETES SCREENLake County Memorial Hospital [facility] Start: 02-24-2026Medicare Annual Wellness (AWV)Medicare Annual Wellness (AWV) [facility] HealthcareStart: 55-05-8562GGRLZYZT SCREENDIABETES SCREENLake County Memorial Hospital - [facility] Start: 07-20-2025 End: 25-07-6290Jkgpxzn encounter dmpubvdee97/13/2026 8:30 AM EST Office Visit [facility] [place] [facility] [address] [facility] [address] [place] [address] Serene Morales MD [address] [place] [address] NOMJanell Fleming OtolaryngologyStart: 06-16-2025 End: 26-57-6589Enhlntm encounter zveoklnlc44/10/2025 1:00 PM EST Office Visit [facility] [place] [facility] [address] [id number] Jr. Mechelle Boyer DO [address] [place] [address] QUIANA Garcia OrthopaedicsStart: 86-97-9717Dhksvcjvex A1c measurementDiabetes: Hemoglobin Z0VHBUGResearch [facility]iatric [facility] Start: 05-28-2025 End: 53-07-0869Heqxnce encounter vavruxvvf46/21/2025 10:00 AM EST Office Visit [facility] [address] [place] [address] Beto Salinas PA [address] [place] [address] [facility]DPATE HOSPITALJanell Meyer OrthopaedicsStart: 05-25-2025 End: 72-61-9774Rwagsox encounter procedureNO [facility] DERMStart: 05-06-2025 End: 02-31-5176OGV W Auto Differential panel - BloodCOMPLETE BLOOD COUNT AND DIFFERENTIAL Lab Routine 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 Stage 3 chronic kidney disease, unspecified whether stage 3a or 3b CKD (HCC) Expected: 05/06/2025 (Approximate), Expires: 11/04/2025[facility] Work Phone: Comment on above:Expected: 05/06/2025 (Approximate), Expires: 11/04/2025Start: 05-06-2025 End: 54-92-3650Dtoeuzeeiched metabolic 2000 panel - Serum or PlasmaCOMPREHENSIVE METABOLIC PANEL Lab Routine 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 Stage 3 chronic kidney disease, unspecified whether stage 3a or 3b CKD (HCC) Expected: 05/06/2025 (Approximate), Expires: 11/04/2025[facility] HospitalComment on above:Expected: 05/06/2025 (Approximate), Expires: 11/04/2025Start: 05-06-2025 End: 07-85-2287YH Chest W contrast IVCT CHEST W IVCON Radiology Routine 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 Stage 3 chronic kidney disease, unspecified whether stage 3a or 3b CKD (HCC) Expected: 05/06/2025 (Approximate), Expires: 12/04/2025[facility] ClinicComment on above:Expected: 05/06/2025 (Approximate), Expires: 12/04/2025Start: 05-06-2025 End: 95-38-8996SO Neck W contrast IVCT NECK SOFT TISSUE W IVCON Radiology Routine 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 Stage3 chronic kidney disease, unspecified whether stage 3a or 3b CKD (HCC) Expected: 05/06/2025 (Approximate), Expires: 12/04/2025[facility] ClinicComment on above:Expected: 05/06/2025 (Approximate), Expires: 12/04/2025Start: 05-06-2025 End: 50-11-3708Limrhsd encounter kqrznvruv34/30/2025 10:30 AM EDT Office Visit Radiation Oncology [address] [place] [address] [place] [address] Yordan Feliz MD [address] [place] [address] [place] [address] 3 month follow upRadiation OncologyComment on above:3 month follow upStart: 05-06-2025 End: 87-38-9475Idspby-up vsidesabn95/30/2025 10:00 AM EDT Visit (SP) Office Hematology/Oncology [address] [place] [address] [place] [address] John England MD [address] [place] [address] 6 MONTH FOLLOW UP AFTER CT SCANHematology/OncologyComment on above:6 MONTH FOLLOW UP AFTER CT SCANStart: 05-03-2025 End: 83-39-9512Rkmlghv encounter ypibouglm68/27/2025 1:00 PM EDT [facility] [address] [place] [phone] Michael Murray, CRYS [address] [place] [address] [facility]icsStart: 04-30-2025 End: 98-78-6669KR Heart Perfusion W single state of exerciseStress test with myocardial perfusion Cardiac Nuclear Medicine Routine Primary osteoarthritis of left hip 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, without long-term current use of insulin (HCC) 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 Abnormal EKG History of heart artery stent Expected: 04/30/2025 (Approximate), Expires: 04/30/2027[facility] Work Phone: Comment on above:Expected: 04/30/2025 (Approximate), Expires: 04/30/2027Start: 04-30-2025 End: 06-82-5435Ejjprwj encounter uujesgwki74/24/2025 11:45 AM EDT [facility] [address] [facility] [address] [place] [phone] Mason Johnson MD [address] [facility] [[email or web address]] [address] [place], [place] [id number] [facility] [place] [facility] CampuseStart: 04-29-2025 Bacteria identified in Urine by CultureUrine CultureMartins Ferry Hospitaltart: 28-57-4175Peprv cultureMartins Ferry Hospitaltart: 04-29-2025 End: 92-84-6486Bpvqlju encounter fifrioffl40/23/2025 9:15 AM EDT Appointment Radiology Pet CT [address] [place] [address] [place] [address] CT CHEST AND NECKRadiology Pet CTComment on above:CT CHEST AND NECKStart: 04-28-2025 End: 11-21-7056zPBB in Blood by Coagulation assayAPTT Lab Routine Primary osteoarthritis of left hip Pre-op evaluation Expected: 04/28/2025, Expires: 04/28/2026[facility] Work Phone: Comment on above:Expected: 04/28/2025, Expires: 04/28/2026Start: 04-28-2025 End: 46-65-6178Kvbylsiw identified in Urine by CultureUrine culture Microbiology Routine Primary osteoarthritis of left hip Pre-op evaluation Expected: (Approximate), Expires: 04/28/2026[facility] HealthcareComment on above: Expected: 04/28/2025 (Approximate), Expires: 04/28/2026Start: 04-28-2025 End: 50-94-8777CSA W Auto Differential panel - BloodCBC and differential Lab Routine Primary osteoarthritis of left hip Pre-op evaluation Expected: 04/08 (Approximate), Expires: 04/28/2026[facility] HealthcareComment on above: Expected: 04/28/2025 (Approximate), Expires: 04/28/2026Start: 04-28-2025 End: 28-07-5467Ctwkraxlhccoj metabolic 2000 panel - Serum or PlasmaComprehensive metabolic panel Lab Routine Primary osteoarthritis of left hip Pre-op evaluation Expected: 04/28/2025 (Approximate), Expires: 04/28/2026NO HealthcareComment on above:Expected: 04/28/2025 (Approximate), Expires: 04/28/2026Start: 04-28-2025 End: 22-79-7063WSI 12 leadECG 12 lead ECG Routine Primary osteoarthritis of left hip Pre-op evaluation Expected: 04/28/2025 (Approximate), Expires: 04/28/2026 [facility] HealthcareComment on above:Expected: 04/28/2025 (Approximate), Expires: 04/28/2026Start: 04-28-2025 End: 10-02-1894Tjksmjyqiid time (PT) in Blood by Coagulation assayProtime-INR Lab Routine Primary osteoarthritis of left hip Pre-op evaluation Expected: 04/28/2025 (Approximate), Expires: 04/28/2026[facility] HealthcareComment on above: Expected: 04/28/2025 (Approximate), Expires: 04/28/2026Start: 04-28-2025 End: 49-18-7392Utzngutpog complete panel - UrineUrinalysis with reflex microscopic Lab Routine Primary osteoarthritis of left hip Pre-op evaluation Expected: 04/28/2025 (Approximate), Expires: 04/28/2026[facility] HealthcareComment on above:Expected: 04/28/2025 (Approximate), Expires: 04/28/2026Start: 04-28-2025 End: 06-56-5970DN Hip - left 3 ViewsXR hip left 2 or 3 views Imaging Routine Primary osteoarthritis of left hip Pre-op evaluation Expected: 04/28/2025, Expires: 04/28/2026[facility] HealthcareComment on above:Expected: 04/28/2025, Expires: 04/28/2026Start: 04-28-2025 End: 51-46-9378Hgxgcdp encounter procedureNOMS [place] OrthopaedicsComment on above:ArrivedStart: 94-79-1883Ppanbupb blood countHemoglobin/HematocritToledo Hospitaltart: 69-82-3175Sgesyqycuh measurementSerum CreatinineLake County Memorial Hospital [facility] Start: 04-20-2025 End: 47-04-7363Gandfyq encounter procedureNOMS CI ENTComment on above:Arrived Start: 04-14-2025 End: 59-91-6546Qzutjsl encounter ikjkhczxl35/08/2025 1:15 PM EDT Office Visit [facility] [place] [facility] [address] [place], [place] Jr. Mechelle Boyer, DO [address] [place] [address] Left hip pain; Pseudogout involving multiple joints; Primary osteoarthritis of left hipNOMS [place] [facility] Comment on above:Left hip pain; Pseudogout involving multiple joints; Primary osteoarthritis of left hipStart: 03-26-2025 End: 60-48-5428Ezgpniiibkugc metabolic 2000 panel - Serum or PlasmaComprehensive metabolic panel Lab Routine Primary hypertension 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, without long-term current use of insulin (HCC) Moderate mixed hyperlipidemia not requiring statin therapy Expected: 03/26/2025 (Approximate), Expires: 03/26/2026[facility] HealthcareComment on above:Expected: 03/26/2025 (Approximate), Expires: 03/26/2026Start: 03-26-2025 End: 73-75-7386Jzirl 1996 panel - Serum or PlasmaLipid panel Lab Routine Primary hypertension 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, without long-term current use of insulin (HCC) Moderate mixed hyperlipidemia not requiring statin therapy Expected: 03/26/2025 (Approximate), Expires: 03/26/2026[facility] Work Phone: Comment on above:Expected: 03/26/2025 (Approximate), Expires: 03/26/2026Start: 03-26-2025 End: 05-71-1444Dotytzwmhasp/Creatinine panel in random UrineMicroalbumin / creatinine, urine ratio Lab Routine Primary hypertension 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, without long-term current use of insulin (HCC) Moderate mixed hyperlipidemia not requiring statin therapy Expected: 03/26/2025 (Approximate), Expires: 03/26/2026[facility] HealthcareComment on above:Expected: 03/26/2025 (Approximate), Expires: 03/26/2026Start: 03-26-2025 End: 46-19-3152Jpsaowg encounter procedureNOMS [place] [facility] MedinceComment on above:ArrivedStart: 12-61-3382Fugbxziro vaccinationInfluenza Vaccine (#1)[facility] HealthcareStart: 51-20-5644Bkqnrrxsbp A1c measurementDiabetes: Hemoglobin A1C [facility]OM[facility] HealthcareStart: 01-19-2025 End: 18-27-3751Rbadqqk encounter erwafqicz13/15/2025 8:00 AM EDT Office Visit [facility] [address] [facility] [address] [place] [address] Serene Morales MD [address] [facility] [address] [place] [address] NOMS CI ENTStart: 01-06-2025 End: 76-14-1895Miegams encounter procedureNOMS CI FMComment on above:Left hip painStart: 12-28-2024 End: 24-58-6744AD Lumbar spine 2 or 3 ViewsXR lumbar spine 2 or 3 views Imaging Routine Left hip pain Expected: 12/28/2024, Expires: 12/28/2025[facility] Work Phone: Comment on above:Expected: 12/28/2024, Expires: 12/28/2025Start: 12-28-2024 End: 46-67-8971Psencoi encounter vefbrcxeb89/23/2025 9:30 AM EDT Office Visit [facility] CI [address] [facility] [address] [place] [phone] Mason Johnson MD [address] [facility] [address] [place] [address] NOMS CI FMStart: 12-09-2024 End: 12-09-2025 reactive protein [Mass/volume] in Serum or PlasmaC-reactive protein Lab Routine Inflammatory arthritis Expected: 12/09/2024 (Approximate), Expires: 12/09/2025[facility] HealthcareComment on above:Expected: 12/09/2024 (Approximate), Expires: 12/09/2025Start: 12-09-2024 End: 88-13-1101Wxatsmzmyjx sedimentation rateSedimentation rate, automated Lab Routine Inflammatory arthritis Expected: 12/09/2024 (Approximate), Expires: 12/09/2025[facility] HealthcareComment on above:Expected: 12/09/2024 (Approximate), Expires: 12/09/2025Start: 12-09-2024 End: 65-16-1324Rwioupq Ab [Titer] in Serum by ImmunofluorescenceANA Lab Routine Inflammatory arthritis Expected: 12/09/2024 (Approximate), Expires: 12/09/2025 [facility] HealthcareComment on above:Expected: 12/09/2024 (Approximate), Expires: 12/09/2025Start: 12-09-2024 End: 47-02-0213SHENFWKZOE ARTHRITIS DIAGNOSTIC PANEL 3RHEUMATOID ARTHRITIS DIAGNOSTIC PANEL 3 Lab Routine Inflammatory arthritis Expected: 12/09/2024 (Ce roximate), Expires: 12/09/2025[facility] Work Phone: Comment on above:Expected: 12/09/2024 (Approximate), Expires: 12/09/2025Start: 12-09-2024 End: 05-59-3042Gdiey [Mass/volume] in Serum or PlasmaUric acid Lab Routine Inflammatory arthritis Expected: 12/09/2024 (Approximate), Expires: 12/09/2025 [facility] HealthcareComment on above:Expected: 12/09/2024 (Approximate), Expires: 12/09/2025Start: 12-09-2024 End: 65-39-7122RL Knee - left 3 ViewsXR knee 3 views left Imaging Routine Effusion of left knee Acute pain of left knee Expected: 12/09/2024, Expires: 12/09/2025[facility] HealthcareComment on above:Expected: 12/09/2024, Expires: 12/09/2025Start: 12-09-2024 End: 37-23-7512Iamlkfu encounter procedureNOMS CI FMComment on above:Arrived Start: 12-04-2024 End: 87-01-2450Sarwcvownhc [Units/volume] in Serum or PlasmaTHYROID STIMULATING HORMONE Lab Routine Acquired hypothyroidism Expected: 12/04/2024, Expires: 11/04[facility] Work Phone: Comment on above:Expected: 12/04/2024, Expires: 11/04/2025Start: 12-04-2024 End: 06-41-0987Gcjnygyyx (T4) [Mass/volume] in Serum or PlasmaT4/THYROXINE Lab Routine Acquired hypothyroidism Expected: 12/04/2024, Expires: 11/04/2025 [facility]Comment [facility]:Expected: 12/04/2024, Expires: 11/04/2025Start: 12-04-2024 End: 95-21-4762Bjheqbsswvfhdjnb (T3) [Mass/volume] in Serum or PlasmaT3 Lab Routine Acquired hypothyroidism Expected: 12/04/2024, Expires: 11/04/2025 [facility] WestComment on above:Expected: 12/04/2024, Expires: 11/04/2025Start: 12-02-2024 End: 90-25-2831Spntaix encounter bgmahrptk55/28/2025 11:30 AM EDT Office Visit [facility] [address] [place] [address] [place] [address] labNortBrighton Hospital LaboratoryComment on above:labStart: 11-04-2024 End: 52-87-8158FNM W Auto Differential panel - BloodCOMPLETE BLOOD COUNT AND DIFFERENTIAL Lab Routine 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 Stage 3 chronic kidney disease, unspecified whether stage 3a or 3b CKD (HCC) Expected: 11/04/2024 (Approximate), Expires: 05/06/2025[facility] ClinicComment on above: Expected: 11/04/2024 (Approximate), Expires: 05/06/2025Start: 11-04-2024 End: 13-52-7552Uwfhnfwizqsko metabolic 2000 panel - Serum or PlasmaCOMPREHENSIVE METABOLIC PANEL Lab Routine 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 Stage 3 chronic kidney disease, unspecified whether stage 3a or 3b CKD (HCC) Expected: 11/04/2024 (Approximate), Expires: 05/06/2025[facility] ClinicComment on above:Expected: 11/04/2024 (Approximate), Expires: 05/06/2025Start: 11-04-2024 End: 80-11-6234MM Chest W contrast IVCT CHEST W IVCON Radiology Routine 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 Stage 3 chronic kidney disease, unspecified whether stage 3a or 3b CKD (HCC) Expected: 11/04/2024 (Approximate), Expires: 06/05/2025[facility] ClinicComment on above:Expected: 11/04/2024 (Approximate), Expires: 06/05/2025Start: 11-04-2024 End: 32-32-8784HF Neck W contrast IVCT NECK SOFT TISSUE W IVCON Radiology Routine 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 Stage3 chronic kidney disease, unspecified whether stage 3a or 3b CKD (HCC) Expected: 11/04/2024 (Approximate), Expires: 06/05/2025[facility] Work Phone: Comment on above:Expected: 11/04/2024 (Approximate), Expires: 06/05/2025Start: 11-04-2024 End: 21-98-5630Wmqifpi encounter xuczkzssn57/30/2025 11:45 AM EDT Office Visit Radiation Oncology [address] [place] [address] [place] [address] Yordan Feliz MD [address] [place] [address] 6 month Follow upRadiation OncologyComment on above:6 month Follow upStart: 11-04-2024 End: 08-90-0291rosbwacfgx61/30/2025 11:20 AM EDT Visit (SP) Office Hematology/Oncology [address] [place] [address] [place] [address] John England MD [address] [place] [address] PT SEES DENA BEFORE SINCERE TODAYHematology/OncologyComment on above:PT SEES DENA BEFORE SINCERE TODAYStart: 10-28-2024 End: 73-54-3347Ckyxhpt encounter schfrdrue67/23/2025 7:45 AM EDT Appointment Radiology Pet CT [address] [place] [address] CT CHEST AND NECKRadiology Pet CTComment on above:CT CHEST AND NECKStart: 10-26-2024 End: 76-49-6845Aclexxg encounter procedureNOMS CI FMComment on above:Neck pain on left side; Left hip painStart: 10-20-2024 End: 61-02-7034Clvemce encounter qlqrzmnul90/15/2025 8:00 AM EDT Office Visit [facility] [address] [facility] [address] [place] [address] Serene Morales MD [address] [facility] [[email or web address]] [address] [place] [address] NOMS CI ENTStart: 10-04-4245Jahvywrn blood count Hemoglobin/HematocritLake Leelanau ClinicStart: 84-17-2844Awvfpfbqeg measurement Serum CreatinineToledo Hospitaltart: 10-12-2024 End: 50-64-7784Njzqwfk encounter utqbaklsb23/07/2025 3:45 PM EDT Office Visit [facility] [address] [facility] [address] [place] [address] Mason Johnson MD [address] [facility] [[email or web address]] [address] [place] [address] ArrivedNOMS CI FMComment on above:ArrivedStart: 10-12-2024 End: 05-56-8934LS Cervical spine 2 or 3 ViewsXR cervical spine 2 or 3 views Imaging Routine Neck pain on left side Expected: 10/12/2024, Expires: 10/12/2025 [facility] HealthcareComment on above:Expected: 10/12/2024, Expires: 10/12/2025Start: 10-12-2024 End: 74-32-3858QY Hip - left 3 ViewsXR hip left 2 or 3 views Imaging Routine Left hip pain Expected: 10/12/2024, Expires: 10/12/2025[facility] Work Phone: Comment on above:Expected: 10/12/2024, Expires: 10/12/2025Start: 49-68-4388Yaxwfani screeningDiabetes: Retinopathy ScreeningNOMS HealthcareStart: 08-31-2024 End: 88-56-0254Chultvg encounter procedureNOMS CI FMComment on above:Arrived Start: 07-21-2024 End: 23-02-7107Olcofao encounter procedureNOMS CI ENTComment on above:Arrived Start: 10-38-4054Fkzwigc Directive DiscussionAdvance Directive Discussion [facility]: 06-16-2024 End: 18-48-2203Tqmoduk encounter yvglvitkp35/10/2024 9:00 AM EST Office Visit [facility] [address] [facility] [address] [place] [address] Serene Morales MD [address] [facility] [address] [place] [address] NOMS CI ENTStart: 12-04-2024Medicare Annual Wellness (AWV)Medicare Annual Wellness (AWV)[facility] HealthcareStart: 25-62-3841Imkxtlnucewp Vaccine: 65+ Years (1 of 2 - PCV)Pneumococcal Vaccine: 65+ Years (1 of 2 - PCV) [facility]OMS HealthcareComment on above:Postponed from 10/31/1949 (Patient Refused) Start: 05-26-2024 End: 52-17-4673Bzaughe encounter mohjprxzd35/19/2024 10:20 AM EST Office Visit [facility] [address] [place] [phone] Barry Stevens, SYSTEM VALIDATION ENGINEER-[employer] [address] [place] [address] NOMS SWS DERMStart: 81-17-4674Ejdfecqupr A1c measurementDiabetes: Hemoglobin C8OQRLH HealthcareStart: 05-19-2024 End: 27-98-0573Ikgkxmn encounter /12/2024 9:00 AM EST Office Visit [facility] [address] [place] [address] Serene Morales MD [address] [place] [address] NOMS CI ENTStart: 05-06-2024 End: 23-44-3477vzaxttjhuv99/30/2024 3:20 PM EDT Visit (SP) Office Hematology/Oncology [address] [place], [place] [phone] John England MD [address] [place] [address] PT SEES DENA BEFORE SINCERE TODAYHematology/OncologyComment on above:PT SEES DENA BEFORE SINCERE TODAYStart: 05-06-2024 End: 48-44-7932Agdnizg encounter szerplesg30/30/2024 3:00 PM EDT Office Visit Radiation Oncology [address] [place] [address] Yordan Feliz MD [address] [place] [address] PT SEES SINCERE AFTER THIS APPTRadiation OncologyComment on above:PT SEES SINCERE AFTER THIS APPTStart: 04-30-2024 End: 97-98-2629Jsbivax encounter procedureNOMS CI FMComment on above:Arrived Start: 04-29-2024 End: 48-52-5568Jtczqeu encounter avqtyiscp68/23/2024 10:30 AM EDT Office Visit Radiation Oncology [address] [place] [address] [place] [address] Yordan Feliz MD [address] [place] [address] [place] [address] FollowupRadiation OncologyComment on above:FollowupStart: 04-29-2024 End: 32-33-4224Dyczkr-up zmlhnrswu22/23/2024 10:00 AM EDT Visit (SP) Office Hematology/Oncology [address] [place] [address] [place] [address] John England MD [address] [place] [address] [place] [address] 6 month follow up after scansHematology/OncologyComment on above:6 month follow up after scansStart: 04-23-2024 End: 93-09-6825MSN W Auto Differential panel - BloodCOMPLETE BLOOD COUNT AND DIFFERENTIAL Lab Routine 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 Ex pected: 04/23/2024 (Approximate), Expires: 10/22/2024[facility] Work Phone: Comment on above:Expected: 04/23/2024 (Approximate), Expires: 10/22/2024Start: 04-23-2024 End: 32-68-0230Hvibqawod (Vitamin B12) [Mass/volume] in Serum or PlasmaVITAMIN B12 Lab Routine 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 Expected: 04/23/2024 (Approximate), Expires: 10/22/2024[facility] Work Phone: Comment on above:Expected: 04/23/2024 (Approximate), Expires: 10/22/2024Start: 04-23-2024 End: 49-26-4483Praljifwpshvj metabolic 2000 panel - Serum or PlasmaCOMPREHENSIVE METABOLIC PANEL Lab Routine 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 Expected:04/23/2024 (Approximate), Expires: 10/22/2024[facility] Work Phone: Comment on above:Expected: 04/23/2024 (Approximate), Expires: 10/22/2024Start: 04-23-2024 End: 18-13-1594BN Chest W contrast IVCT CHEST W IVCON Radiology Routine 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 Expected: 04/23/2024 (Approximate), Expires: 11/21/2024[facility] Work Phone: Comment on above:Expected: 04/23/2024 (Approximate), Expires: 11/21/2024Start: 04-23-2024 End: 63-66-0535AF Neck W contrast IVCT NECK SOFT TISSUE W IVCON Radiology Routine 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 Expected: 04/23/2024 (Approximate), Expires: 11/21/2024[facility] Work Phone: Comment on above:Expected: 04/23/2024 (Approximate), Expires: 11/21/2024Start: 04-23-2024 End: 65-43-6838Pylfyllr [Mass/volume] in Serum or PlasmaFERRITIN Lab Routine 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 Expected: 04/23/2024 (Approxima te), Expires: 10/22/2024[facility] Work Phone: Comment on above:Expected: 04/23/2024 (Approximate), Expires: 10/22/2024Start: 04-23-2024 End: 30-84-9719Kuqnbr [Mass/volume] in Serum or PlasmaFOLATE, SERUM Lab Routine 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 Expected: 04/23/2024 (Appr oximate), Expires: [address] [place] [address] Work Phone: Comment on above:Expected: 04/23/2024 (Approximate), Expires: 10/22/2024Start: 04-23-2024 End: 03-26-1353Dhgx and Iron binding capacity panel - Serum or PlasmaIRON AND TIBC Lab Routine 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 Expected: 04/23/2024 (Approximate), Expires: 10/22/2024[facility] Work Phone: Comment on above:Expected: 04/23/2024 (Approximate), Expires: 10/22/2024Start: 04-23-2024 End: 36-17-9280Eiqoidj encounter /17/2024 8:15 AM EDT Appointment Radiology Pet CT [address] [place] [address] [place] [address] CT CHEST AND NECKRadiology Pet CTComment on above:CT CHEST AND NECKStart: 04-21-2024 End: 99-08-6273Xcntqto encounter chaqeuamo41/15/2024 9:00 AM EDT Office Visit [facility] [address] [facility] [address] [place] [address] Serene Morales MD [address] [facility] [address] [place] [address] NOMS CI ENTStart: 03-24-2024 End: 26-98-3352Iwoirpd encounter procedureNOMS CI ENTComment on above:Arrived Start: 53-04-0210Glvch-19 Vaccine ( season)Covid-19 Vaccine ()[facility]: 86-65-7307Dbkvd-19 Vaccine ( season)Covid-19 Vaccine ( season)[facility]: 03-08-2024 Influenza vaccinationToledo Hospitaltart: 05-95-1869NLKAM CREATININESERUM CREATININELake Leelanau ClinicStart: 35-83-2268Eqdxi screening for proteinDiabetes: Urine Protein ScreeningNOMD HealthcareStart: 01-62-4517JCVUN CREATININESERUM CREATININEToledo Hospitaltart: 11-06-2023 End: 16-43-8922Sawkqhxnhfr [Units/volume] in Serum or PlasmaTSH BLD Lab Routine Other specified disorders of thyroid Expected: 11/06/2023 (Approximate), Expires : 02/05/2024[facility] Work Phone: Comment on above:Expected: 11/06/2023 (Approximate), Expires: 02/05/2024Start: 11-06-2023 End: 98-92-7010Ttswruxsw (T4) free [Mass/volume] in Serum or PlasmaT4 FREE/FREE THYROX Lab Routine Other specified disorders of thyroid Expected: 11/06/2023 (Approximate), Expires: 02/05/2024[facility] Work Phone: Comment on above:Expected: 11/06/2023 (Approximate), Expires: 02/05/2024Start: 11-06-2023 End: 38-50-6226Djedxhwvigzvouaf (T3) [Mass/volume] in Serum or PlasmaT3 BLD Lab Routine Other specified disorders of thyroid Expected: 11/06/2023 (Approximate), Expires: 02/05/2024[facility] Work Phone: Comment on above:Expected: 11/06/2023 (Approximate), Expires: 02/05/2024Start: 05-68-5904NIKBFDRKIP/HEMATOCRITHEMOGLOBIN/HEMATOCRIT [facility]: 63-89-9295QUJSS CREATININESERUM CREATININEToledo Hospitaltart: 32-54-4799Lnqwhlt Directive DiscussionAdvance Directive Discussion [facility]: 68-03-0004Afyamaobet Health ScreeningBehavioral Health ScreeningToledo Hospitaltart: 06-19-2023 End: 61-64-1662PBI W Auto Differential panel - BloodCBC + DIFF Lab Routine 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) Mass of right lung Expected: 06/19/2023 (A pproximate), Expires: 03/20/2024[facility] Work Phone: Comment on above:Expected: 06/19/2023 (Approximate), Expires: 03/20/2024Start: 06-19-2023 End: 05-16-7235Fdkxrkaytqyvq metabolic 2000 panel - Serum or PlasmaCOMP METABOLIC PANEL Lab Routine 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) Mass of right lung Expected: 06/19/2023 (Approximate), Expires: 03/20/2024[facility] Work Phone: Comment on above:Expected: 06/19/2023 (Approximate), Expires: 03/20/2024Start: 06-19-2023 End: 61-01-6656UN CHEST W IVCONCT CHEST W IVCON Radiology Routine 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) Mass of right lung Expected: 06/19/2023 (Approximate), Expires: 04/18/2024[facility] Work Phone: Comment on above:Expected: 06/19/2023 (Approximate), Expires: 04/18/2024Start: 03-13-2023 End: 01-50-5527FA CHEST W IVCONCT CHEST W IVCON Radiology Routine Lung nodules Expected: 03/13/2023 (Approximate), Expires: 03/07/2024[facility] Work Phone: Comment on above:Expected: 03/13/2023 (Approximate), Expires: 03/07/2024Start: 34-09-1315Iyyyj-19 Vaccine (2022- season)Covid- 19 Vaccine ( season)[facility]: 79-28-5426Drtvcucmf vaccinationToledo Hospitaltart: 02-06-2023 End: 65-95-1262ZMVPYCI/CREAT RATIO RND URCincinnati Shriners Hospital Work Phone: Comment on above:Expected: 02/06/2023, Expires: 04/08/2023Start: 02-06-2023 End: 56-46-9254Wcuhrarewj [Mass/volume] in Urine collected for unspecified durationCincinnati Shriners Hospital Work Phone: Comment on above:Expected: 02/06/2023, Expires: 04/08/2023Start: 02-06-2023 End: 11-96-5915Ojyvbtqsap A1c in BloodCincinnati Shriners Hospital Work Phone: Comment on above:Expected: 02/06/2023, Expires: 04/08/2023Start: 02-06-2023 End: 42-76-8494Ujlkd 1996 panel - Serum or PlasmaCincinnati Shriners Hospital Work Phone: Comment on above:Expected: 02/06/2023, Expires: 04/08/2023Start: 01-30-2023 End: 26-58-8918HTG W Auto Differential panel - BloodCBC + DIFF Lab Routine 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) Chemotherapy-induced neutropenia (HCC) Exp ected: 01/30/2023 (Approximate), Expires: 11/08/2023[facility] Work Phone: Comment on above:Expected: 01/30/2023 (Approximate), Expires: 11/08/2023Start: 01-30-2023 End: 76-86-4647Pkokkeedkdmqk metabolic 2000 panel - Serum or PlasmaCOMP METABOLIC PANEL Lab Routine 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) Chemotherapy- induced neutropenia (HCC) Expected: 01/30/2023 (Approximate), Expires: 11/08/2023[facility] Work Phone: Comment on above:Expected: 01/30/2023 (Approximate), Expires: 11/08/2023Start: 01-28-2023 End: 15-39-0407NU PET/CT SKULL-THIGH SUBSEQUENTNM PET/CT SKULL-THIGH SUBSEQUENT Radiology Routine 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) Expected: 01/28/2023, Expires: 12/28/2023[facility] Work Phone: Comment on above:Expected: 01/28/2023, Expires: 12/28/2023Start: 11-08-2022 End: 99-11-2915TFI W Auto Differential panel - BloodCBC + DIFF Lab Routine 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) Expected: 11/08/2022, Expires: 01/08/2023 [facility] Work Phone: Comment on above:Expected: 11/08/2022, Expires: 01/08/2023Start: 11-08-2022 End: 12-06-9045Khsicyceuttyv metabolic 2000 panel - Serum or PlasmaCOMP METABOLIC PANEL Lab Routine 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) Expected: 11/08/2022, Expires: 01/08/2023[facility] Work Phone: Comment on above:Expected: 11/08/2022, Expires: 01/08/2023Start: 10-26-2022 End: 45-51-4455YCA W Auto Differential panel - BloodCBC + DIFF Lab Routine 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) Chemotherapy-induced neutropenia (HCC) Exp ected: 10/26/2022, Expires: 12/26/2022[facility] Work Phone: Comment on above:Expected: 10/26/2022, Expires: 12/26/2022Start: 10-26-2022 End: 09-47-6546Bmccgwdqwkcqs metabolic 2000 panel - Serum or PlasmaCOMP METABOLIC PANEL Lab Routine 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) Chemotherapy- induced neutropenia (HCC) Expected: 10/26/2022, Expires: 12/26/2022[facility] Work Phone: Comment on above:Expected: 10/26/2022, Expires: 12/26/2022Start: 22-36-2601XANJVYY DIRECTIVE DISCUSSIONADVANCE DIRECTIVE DISCUSSIONToledo Hospitaltart: 03-42-8710FJWYLQJYCR ASSESSMENTDEPRESSION ASSESSMENTToledo Hospitaltart: 53-58-4189MOIKI-19 VACCINE (3 - Booster for Moderna series)COVID-19 VACCINE (3 - Booster for Moderna series)[facility] Start: 03-18-0637LIEPL-19 VACCINE (3 - Moderna risk series)COVID-19 VACCINE (3 - Moderna risk series)[facility]: 59-64-9110TQZ Vaccine (1 - 1-dose 75+ series)RSV Vaccine (1 - 1-dose 75+ series)[facility]: 10-31-2008 Pneumococcal Vaccine: 65+ (1 of 1 - PCV)Pneumococcal Vaccine: 65+ (1 of 1 - PCV) [facility]: 10-66-5123VMHBUKUJCKMM: 65+ (1 - PCV)PNEUMOCOCCAL: 65+ (1 - PCV)[facility]: 45-79-7535Hrzdjwbue B Vaccines (1 of 3 - Risk 3- dose series)Hepatitis B Vaccines (1 of 3 - Risk 3-dose series)[facility] Start: 45-65-3620DZP Vaccine (1 - 1-dose 60+ series)RSV Vaccine (1 - 1-dose 60+ series)[facility]: 04-66-1192Vvvdhtkvdwew Vaccine: 50+ (1 of 1 - PCV) Pneumococcal Vaccine: 50+ (1 of 1 - PCV)[facility]: 10-31-1993 SHINGRIX VACCINE (1 of 2)SHINGRIX VACCINE (1 of 2)[facility]: 44-48-2933EMSYXVOX SCREENDIABETES SCREENToledo Hospitaltart: 10-31-1962 Hepatitis A Vaccines (1 of 2 - Risk 2-dose series)Hepatitis A Vaccines (1 of 2 - Risk 2-dose series)[facility] HealthcareStart: 51-03-2506Subxibwbdykq Vaccine: 65+ Years (1 of 2 - PCV)Pneumococcal Vaccine: 65+ Years (1 of 2 - PCV)[facility]: 05-46-4576PRJKRBVB VACCINE (1 of 2)SHINGRIX VACCINE (1 of 2) [facility]: 45-73-1540Gyzhw microalbumin profileLake County Memorial Hospital - West Start: 33-27-3930JBCNNV PCP TEAM CHRONIC DISEASE VISITANNUAL PCP TEAM CHRONIC DISEASE VISITToledo Hospitaltart: 98-72-9442Hskwgoj ScreeningAnxiety Screening [facility]: 47-35-3684Hhkcetjims ScreeningDepression Screening [facility]: 61-90-6911MEFWDNAGQ C SCREENINGHEPATITIS C SCREENING [facility]: 89-52-1711OUzA/Tdap/Td Vaccines (1 - Tdap)DTaP/Tdap/Td Vaccines (1 - Tdap)[facility] HealthcareStart: 01-77-2806Jauuggcohibi Vaccine: 65+ (1 - PCV)Pneumococcal Vaccine: 65+ (1 - PCV)[facility]: 10-31-1951 Pneumococcal Vaccine: 65+ (1 of 2 - PCV)Pneumococcal Vaccine: 65+ (1 of 2 - PCV) [facility]: 34-31-9167Iflvlflhwzzj Vaccine: 65+ Years (1 of 2 - PCV) Pneumococcal Vaccine: 65+ Years (1 of 2 - PCV)[facility] HealthcareStart: 10-31-1951 PNEUMOCOCCAL: 65+ (1 - PCV)PNEUMOCOCCAL: 65+ (1 - PCV)[facility] End: 26-18-3309BDH W Auto Differential panel - BloodCBC + DIFF Lab Routine Cancer of base of tongue (HCC) Once per week for 10 Occurrences starting 03/2023 until 08/16/2023, 1 completedC[facility]innati [facility]rin[facility] Hospital Work Phone: Comment on above:Once per week for 10 Occurrences starting 08/16/2022 until 08/16/2023, 1 completedCBC W Auto Differential panel - BloodCBC + DIFF Lab Routine Cancer of base of tongue (HCC) 10/08/2022 11:35 AM [facility] Work Phone: End: 27-67-2181Hkedpwvsznzdc metabolic 2000 panel - Serum or PlasmaCOMP METABOLIC PANEL Lab Routine Cancer of base of tongue (HCC) Once per week for 10 Occurrences starting 08/16/2022 until 08/16/2023, 1 completedC[facility] Work Phone: Comment on above:Once per week for 10 Occurrences starting 08/16/2022 until 08/16/2023, 1 completedCT SIM PLANNING RADIATION ONCOLOGYCT SIM PLANNING RADIATION ONCOLOGY Radiology Routine Tongue cancer (HCC) [facility] Work Phone: Comment on above:Ordered: 08/23/2022 End: 79-79-5435Ush imaging ct attenuation skull base mid-thighNM PET/CT SKULL- THIGH INITIAL Radiology Routine Tongue cancer (HCC) Head and neck cancer (HCC) 1 Occurrences starting 08/14/2022 until 4C[facility] Work Phone: Comment on above:1 Occurrences starting 08/14/2022 until 4Prostate specific Ag [Mass/volume] in Serum or PlasmaPSA Lab Routine Prostate cancer screening Ordered: 08/31/2024[facility] Work Phone: Comment on above:Ordered: [address] [place] [address] Immunizations Immunization DateImmunizationNotesCare CcvwthcrTtpykjtp85-56-8706Vivyjtfbz, High-dose Seasonal, Quadrivalent, Preservative FreeMannie Rodriguez ROUGH PLANER TENDER Work Phone: [facility] CenterYdtmunywqe42-13-4684mncrarnff virus vaccine, unspecified formulationMason Johnson MD Work Phone: [facility] CenterGngcskdghg75-14-6831Rzwhnpfxd, Seasonal, Quadrivalent, AdjuvantedDdaisy Johnson MD Work Phone: [facility] CenterIcopmnlafi68-07-7699eaamqpsbr nasal, unspecified formulationK[facility] Springfield10-27-2022influenza virus vaccine, unspecified formulationMichael NILL GeneStockton State HospitalKbqdsnls38-69-3032Leypxqkqf, Seasonal, Quadrivalent, AdjuvantedDdaisy Johnson MD Work Phone: [facility] CenterOuvpykwtfw31-49-5826auhqowsff, seasonal, injectableMason Johnson MD Work Phone: [facility] CenterSindymwixq45-31-3027Edlpzpysr, Seasonal, Quadrivalent, AdjuvantedDdaisy Johnson MD Work Phone: [facility] CenterBicsflrbgf00-33-1538LTCW-JzJ-9 (COVID-19) mRNA- 1273 vaccineMichael NILL [facility] HospitalRevtofyz32-10-1988SSWF-UcC-1 (COVID-19) mRNA-1273 vaccineMichael NILL General Surgery Advymlhb00-73-8136qhsfizwvx, high dose seasonal, preservative-Genet Johnson MD Work Phone: [facility] CenterLawvyaaksx82-30-5363Npoqulbgb, injectable, Madin Mchenry Canine Kidney, preservative free, quadrivalentMason Johnson MD Work Phone: [facility] CenterLyzogwaplw53-70-3636ikkrvepwm, seasonal, injectable, preservative Genet Johnson MD Work Phone: [facility] CenterOrzzwxvyvd70-54-8602vyoqv jasepxaon-L1X2-92, preservative-free, injectableMason Johnson MD Work Phone: [facility] Payers DatePayer CategoryPayerPolicy ID2025Self-pay2025Medicare (Managed Care)[id number]/MEDICAL GENERIC MEDICAL GENERIC [id number] 2022- Present [phone] [place] [address] Dr Acuna [address] [place] [address] [id number] Health [id number] 2013Medicare [id number] [id number] 1960 Private Health [id number] 2.16.840.1.307141.3.57[id number] 2.16.840.1.408460.3.57[id number] 2.16840.1.829052.3.57[id number] 2.16840.1.050905.3.57[id number] 2.16840.1.131573.3.579.[id number] 2.16840.1.746482.3.57[id number] 2.16840.1.908595.3.579.2.[id number] 2.0.1.899379.3.579.2.70807-88-2750Sfqtmbi6839277 2.0.1.868803.3.57[id number] 2.840.1.517688.3.57[id number] 2.840.1.840318.3.57[id number] 2..1.462361.3.57[id number] 2.840.1.714616.3.57[id number] 2.16840.1.894376.3.579.2.940[id number] 2.16840.1.437402.3.579.2.308380-85-1318Bnjcero81032207 2.16840.1.646031.3.579.2.65[id number] 2.16.840.1.036363.3.579.2.750087-37-6525Yczghzi02240561 2.16.840.1.113184.3.57[id number] 2.16.840.1.245594.3.579.2.[id number] 2.16840.1.647837.3.579.[id number] 2.16.840.1.796743.3.579.2.952512-51-6573Rgpnufz0874480 2.16840.1.790583.3.579.2.485298-56-0951Flyqipg7601955 2.840.1.593592.3.57[id number] 2.840.1.082230.3.579.2.105191-28-6794Bgcapuz3133358 2.840.1.036898.3.579.2.707761-20-8509Wyfpoty8425070 2.840.1.773016.3.579.2.041790-86-8239Iwpmbww4402752 2.840.1.655535.3.579.2.213071-54-1704Oompgqs1749195 2.840.1.451116.3.579.2.753148-13-4984Gdwqtzw9286291 2.840.1.648537.3.579.2.2839Ucbbvti12001469 2.840.1.757074.3.579.2.531 Social History DateTypeDetailFacilityStart: 06-13-2022 End: 90-70-5522Ixosfmm smoking statusNever smoked tobacco (finding)General Surgery [facility]ueStart: 94-10-0392Xjmilin smoking statusNeverGeneral Surgery [facility] 02-06[facility]2023 End: 77-86-2511Imr [facility]: 04-30[facility]2013 End: 64-47-2683Bhxrprd use and exposureSmokeless tobacco non-userToledo Hospitaltart: 08-14-2022 End: 64-94-0197Ecdcxbn intakeCurrent drinker of alcohol (finding)[facility]: 18-07-1015Yjkwpvr Commentdaily 3 beersCleveland Bethesda Hospitaltart: 68-97-9799Hvk Assigned At [facility] HospitalNot on fileToledo Hospitaltart: 02-06-2023 End: 77-84-3356Jnvswgd of Social functionToledo Hospitaltart: 58-42-0993Qjf Assigned At [facility] CenterWithin the last year, have you been afraid [...] before (I/we) got money to buy more.Never trueNOMD HealthcareStart: 01-20-2023 Alcohol Commentcaffeine intake: 1-2 cups per dayNOMD HealthcareTobacco smoking status NHISUnknown if ever smokedMercy Health St. [facility] Work Phone: SexMale (finding)[facility] NEGATED: Highlighted rowStart: NINFHistory of tobacco usePassive smokerLake County Memorial Hospital [facility] Functional Status TdhkDvbfzdfvjrSvweciOzpqweki46-10-2308Uhhjngr Health Questionnaire 2 item (PHQ- 2) [Reported][facility] Uflkfkpetm76-32-3989Njozryh Health Questionnaire 2 item (PHQ- 2) [Reported][facility] CenterFphczohtoo70-56-6976Oxadwwg Health Questionnaire 2 item (PHQ- 2) [Reported][facility] CenterVpiejebqmb00-40-9138Nbwndly Health Questionnaire 2 item (PHQ- 2) [Reported][facility] CenterKjdjfqiohi82-75-7148Kjknjqgzjn StatusN/AGeneral Surgery Cwnwrgai39-32-1517Dkn you deaf, or do you have serious difficulty hearingNo 04/29/2014 11:20 AM Jasmyn Han [facility] HospitalJdlehz95-56-3029Llf you blind, or do you have serious difficulty seeing, even when wearing glassesNo 04/29/2014 11:20 AM Jasmyn Han [facility]10-23-2014Do you have serious difficulty walking or climbing stairsNo 04/29/2014 11:20 AM Jasmyn Han No [facility] WestWmhatx49-96-8503Ul you have difficulty dressing or bathingNo 04/29/2014 11:20 AM Jasmyn Han [facility] HospitalBkbnrj01-02-3381Kgkrrxc of a physical, mental, or emotional condition, do you have difficulty doing errands alone such as visiting a physician's office or shoppingNo 04/29/2014 11:20 AM Jasmyn Garcia [facility] Mental Status NndnFlwxpstytbYiaxozUefdabpo47-64-0385Ltxmsum of a physical, mental, or emotional condition, do you have serious difficulty concentrating, remembering, or making decisionsNo 04/29/2014 11:20 AM Jasmyn Garcia [facility] Clinical Notes 04-28-2015 to 04-30-2025 Note Date & AzevXpcaVpyvnlvr71-61-3372 History of Present illness Narrative* Mason Johnson [...] with colostomy COLONOSCOPY LARYNGOSCOPY 07/31/2022 with biopsy, Timwvs Visit Vitals BP 136/76 Pulse 70 Ht [...] 0.70 - 1.30 mg/dL Final [facility] EGFR-AF CONGOLESE 04/29/2025 >60 >=60 mL/min/1.73m 2 Final [facility] EGFR-NON AF CONGOLESE 04/29/2025 59 (L) >=60 mL/min/1.73m 2 Final [...] INDICATED 04/29/2025 NO Final URINE CULTURE - [facility] 04/29/2025 Preliminary Value: Urine Culture - [facility] PEND Pending - Specimen sent to [facility]^Pending - Specimen sent to [facility] SEGMENTED NEUTROPHILS % MANUAL 04/29/2025 83.0 [...] LDL-C. Monroe SS et al. TITI. 2013;310(19): 5110-6300 (http://education.TRUSTe.DeviceAuthority/faq/KZY287) CHOL/HDLC RATIO 03/26/2025 2.8 <5.0 (calc) Final [...] outlined without changes. 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 - Asymptomatic but he is sedentary due to his hip. I do not have his Cardiac Cath report, it was done 10 years ago in [place]. He has not seen a Pyrometer Mechanic or had any cardiac evaluation in 10 [...] 2 weeks (on 05/14/2025). documented in this encounterResearch Psychiatric CenterAapcyfswix60-31-9758 NoteHNO ID: [id number] Author: JONATHAN PARTIDA RN Service: ? Author [...] Root DATE: April 29, 2025 TIME: 10:09 [facility]10-23-2025 NoteHNO ID: [id number] Author: RAFAEL ZURITA RT(R) Service: ? Author [...] PATIENT PRESENTS WITH AN IMPLANTABLE OR ATTACHED STOCK PARTS FABRICATOR: No RADIOLOGY DEPARTMENT: CT; Exam(s) Completed: Chest and Neck . Anesthesia: No PERIPHERAL IV DATA: Site assessment: Clean,Dry and Intact, Site disposition Discontinued SIGNED BY: RT Perlita(R) April 29, 2025 10:02 [facility]10-22-2025 History of Present illness Narrative* Jr. Mechelle [...] or the patient requires discharge to a fpc facility, the patient may require to have additional inpatient hospitalstay days following the surgery. Physical therapy is contraindicated in this patient''s case because of the cjdw-tb-utpd articulation of the patient's hip. Questions answered in laymen terms at the bedside. The diagnosis, home exercise plan and any ongoing restrictions/ recommendations reviewed. If unable to be reached in office, I recommend evaluation at nearest Emergency Room if any symptoms worsened or new symptoms develop for requiring urgent evaluation. [1] Allergies Allergen Reactions Statins GI intolerance documented in this encounterResearch Psychiatric CenterStgirdlngh89-97-9918 History of Present illness Narrative* Serene Morales [...] file prior to visit. documented in this [facility]10-13-2025 Telephone encounter Note* Telephone Encounter - Olive Pugher - 04/19/2025 9:42 AM EDT SHAMIKA 04/14/25 L Hip OA Has thought about it and would like to move forward with DOM Next available spot Please call patient [facility] CenterHvcjvbopjw81-17-6227 Miscellaneous Notes* Telephone Encounter - Oliveitalia Brown - 04/19/2025 9:42 AM EDT SHAMIKA 04/14/25 L Hip OA Has thought about it and would like to move forward with DOM Next available spot Please call patient documented in this [facility]10-08-2025 History of Present illness Narrative* Jr. [...] for requiring urgent evaluation. documented in this encounterResearch Psychiatric CenterTaezeodbvs20-10-5899 History of Present illness Narrative* Mason Johnson [...] 07/26/2025) for Routine F/U. documented in this encounterResearch Psychiatric CenterFwcwnfjudg83-07-8892 History of Present illness Narrative* Serene Morales [...] Quarterly appts till 07/2026 documented in this encounterResearch Psychiatric CenterKzkelgodyt54-76-0453 History of Present illness Narrative* Mason Johnson [...] No follow-ups on file. documented in this encounterResearch Psychiatric CenterLqvkbkhowy60-64-3767 History of Present illness Narrative* Mason Johnson [...] indicated. For additional information, please refer to http://education.[employer] Energy/faq/YKJ114 (This link is being provided for informational/ [...] polar distribution in the cytoplasm (e.g., anti-giantin, eocv-ynvtlo-531). Pattern is rare in Sjogren's syndrome, systemic lupus erythematosus (SLE), rheumatoid arthritis, mixed connective disease, granulomatosis with polyangiitis (GPA), idiopathic cerebellar ataxia, paraneoplastic cerebellar degeneration, and viral infections. AC-22: Polar/Golgi-like International Consensus on RAFAEL Patterns (https://doi.org/10.1515/nflu-8025-6596) Clinisync Result Encounter on 12/02/2024 Component Date [...] 01/04/2025) for Test/Lab Review. documented in this encounterResearch Psychiatric CenterVehvlxjrlp71-75-1191 History of Present illness Narrative* Mason Johnson [...] History: Diagnosis Date CAD (coronary artery disease) ([facility]/HCC) Chemotherapy-induced neutropenia ([facility]/HCC) 10/19/2022 Colon cancer ([facility]/HCC) Diabetes ([facility]) Diastasis recti 01/15/2023 Disorder of prostate 01/15/2023 GERD (gastroesophageal reflux disease) Glucose intolerance 01/15/2023 HCVD (hypertensive cardiovascular disease) ([facility]/HCC) History of colonic polyps 01/15/2023 History of malignant neoplasm of colon 01/15/2023 Hx of myocardial infarction ([facility]/HCC) Hyperlipidemia ([facility]/HCC) Hypertension ([facility]/HCC) Inguinal hernia, right Overweight 12/15/2022 Raynaud's disease Sinusitis Throat cancer ([facility]/HCC) Thyromegaly ([facility]/HCC) Type 2 diabetes mellitus Vitamin [...] disease, without long-term current use of insulin ([facility]) - FSBS log shows good control, most recent A1C is at or near goal. Continue current treatment plan as previously outlined without changes. Follow up in about 2 weeks (around 12/23/2024) for As Previously Scheduled, Test/Lab Review. documented in this encounterResearch Psychiatric CenterTorduzznth93-67-3306 NoteHNO ID: [id number] Author: Yordan FELIZ MD Service: ? Author [...] Lymph 1.00 - 4.00 k/uL 0.48 (L) Jerome% % 10.4 Abs Jerome <0.87 k/uL 0.32 Eosin% % 1.6 Abs [...] flush line and de-a (more content not included)...[facility]04-30-2025 History of Present illness Narrative* Yordan [...] Lymph 1.00 - 4.00 k/uL 0.48 (L) Jerome% % 10.4 Abs Jerome <0.87 k/uL 0.32 Eosin% % 1.6 Abs [...] Feliz MD cc: Dr. Shaikh Vidal Estrada [address] [place] [address] documented in this encounterLake County Memorial Hospital [facility]04-30-2025 History of Present illness Narrative* John England MD - 11/04/2024 11:20 AM EDT Images from the original note were not included. NAME: Dk Manish [facility] NO.: [id number] DATE OF SERVICE: November 04, 2024 (Jacquelyn) [...] Ca Stage 3 - 2/5 LN + [place] regimen on protocol Updated Visit, November 04, [...] as his is better. He's originally from [place]. Updated Visit, May 06, 2024: Manish returns [...] which included preparing to see the patient, natm-af-xbff patient care, completing clinical documentation, performing a medically appropriate examination, counseling and educating the patient/family/caregiver, ordering medications, tests, or p rocedures, independently interpreting results (not separately reported), communicating results to the patient/family/caregiver, and care coordination (not separately reported). John England MD, CPE Hematology and Oncology Services Provided at: [place], [place] CC: Dr. Yordan Morales documented in this encounterLake County Memorial Hospital [facility]04-30-2025 NoteHNO ID: [id number] Author: JOHN ENGLAND MD Service: ? Author Type: Physician Type: Progress Notes Filed: 11/04/2024 19:00 Note Text: NAME: Manish Root [facility] NO.: [id number] DATE OF SERVICE: November 04, 2024 ([facility]) Some elements in this clinic note that [...] Ca Stage 3 - 2/5 LN + [place] regimen on protocol Updated Visit, November 04, [...] as his is better. He's originally from [place]. Updated Visit, May 06, 2024: Manish returns with his Jahaira (she has a pinched nerve that has locked up her shoulder) His scans are negative. He's doing very well. Updated Visit, October 23, 2023: Manish returns today with Jahaira. We discussed he recent CT scans - both appear stable. (more content not included)...[facility]04-30-2025 Instructions* Patient Instructions* John England MD - 11/04/2024 11:[address] Neck and Chest in 6 months Labs same day RTC 1 week after to review documented in this encounterLake County Memorial Hospital - West04-23-2025 NoteHNO ID: [id number] Author: RAFAEL ZURITA RT(R) Service: ? Author [...] PATIENT PRESENTS WITH AN IMPLANTABLE OR ATTACHED STOCK PARTS FABRICATOR: No RADIOLOGY DEPARTMENT: CT; Exam(s) Completed: Chest and Neck PERIPHERAL IV DATA: Site assessment: Clean,Dry and Intact, Site disposition Discontinued SIGNED BY: RT Perlita(R) October 28, 2024 9:41 [facility]04-23-2025 NoteHNO ID: [id number] Author: GISELA VILLAVICENCIO RN Service: ? Author [...] Root DATE: October 28, 2024 TIME: 10:49 [facility]04-21-2025 History of Present illness Narrative* Mason Johnson MD - 10/26/2024 10:45 AM EDT Images from the original note were not included. HPI Results Additional comments: xrays Follow-up Additional comments: Neck/hip pain and osteoarthritis Last edited by Niki lAvarez LPN on 10/26/2024 10:52 AM. Subjective Patient [...] History: Diagnosis Date CAD (coronary artery disease) [facility] SYSTEM/HCC) Chemotherapy-induced neutropenia ([facility]/HCC) 10/19/2022 Colon cancer ([facility]/HCC) Diabetes ([facility]/HCC) Diastasis recti 01/15/2023 Disorder of prostate 01/15/2023 GERD (gastroesophageal reflux disease) Glucose intolerance 01/15/2023 HCVD (hypertensive cardiovascular disease) ([facility]/HCC) History of colonic polyps 01/15/2023 History of malignant neoplasm of colon 01/15/2023 Hx of myocardial infarction (CMS/HCC) Hyperlipidemia (CMS/HCC) Hypertension ([facility]/HCC) Inguinal hernia, right Overweight 12/15/2022 Raynaud's disease Sinusitis Throat cancer ([facility]/HCC) Thyromegaly ([facility]/HCC) Type 2 diabetes mellitus Vitamin D deficiency Past Surgical History: Procedure Laterality Date CARDIAC CATHETERIZATION 2001 with stent placement CATARACT EXTRACTION COLECTOMY 02/2000 sigmoid colectomy with colostomy COLONOSCOPY LARYNGOSCOPY 07/31/2022 with biopsy, [facility] Visit Vitals BP 130/74 Pulse 52 Ht [...] Routine F/U, DM- A1C. documented in this encounterResearch Psychiatric [id number] History of Present illness Narrative* Serene Morales [...] lymph nodes (CMS/HCC) 12/15/2022 Arteriosclerotic cardiovascular disease ([facility]/HCC) 01/15/2023 Colon cancer ([facility]/HCC) 11/19/2012 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, without long-term current use of insulin (CMS/HCC) 01/15/2023 GERD (gastroesophageal reflux disease) 01/15/2023 History of NE (myocardial infarction) ([facility]/HCC) 01/15/2023 HTN (hypertension) (CMS/HCC) 01/15/2023 [...] Quarterly appts till 07/2026 documented in this encounterResearch Psychiatric [id number] History of Present illness Narrative* Mason Johnson [...] History: Diagnosis Date CAD (coronary artery disease) ([facility]/HCC) Chemotherapy-induced neutropenia ([facility]/HCC) 10/19/2022 Colon cancer ([facility]/HCC) Diabetes ([facility]/HCC) Diastasis recti 01/15/2023 Disorder of prostate 01/15/2023 GERD (gastroesophageal reflux disease) Glucose intolerance 01/15/2023 HCVD (hypertensive cardiovascular disease) ([facility]/HCC) History of colonic polyps 01/15/2023 History of malignant neoplasm of colon 01/15/2023 Hx of myocardial infarction ([facility]/HCC) Hyperlipidemia ([facility]/HCC) Hypertension ([facility]/HCC) Inguinal hernia, right Overweight 12/15/2022 Raynaud's disease Sinusitis Throat cancer ([facility]/HCC) Thyromegaly ([facility]/HCC) Type 2 diabetes mellitus Vitamin [...] med changes, Test/Lab Review. documented in this encounterResearch Psychiatric [id number] History of Present illness Narrative* Barry Ricci Stevens, SYSTEM VALIDATION ENGINEER-[employer] - 09/17/2024 10:35 AM EDT Lesions: Location: [...] limited to risks of scarring, darker or cloth dyeing range tender pigmentary changes, recurrence, incomplete removal and infection. [...] 3. Seborrheic keratosis, inflamed Mid Parietal Scalp Ethel and brown stuck on verrucous scaly papule [...] limited to risks of scarring, darker or cloth dyeing range tender pigmentary changes, recurrence, incomplete removal and infection. [...] Next Visit: as scheduled documented in this encounterResearch Psychiatric [id number] History of Present illness Narrative* Mason Johnson [...] Do you have a medical power of attorney recruiter?: No Objective : BP 136/74 Pulse 74 [...] a living will and durable power of attorney recruiter for healthcare. We discussed telling muro people [...] Services Required Referred to Provider: Barry Stevens APRN-[employer] Requested Specialty: Dermatology Number of Visits Requested: 1 POCT Glycated hemoglobin, total Electronically signed by Mason Johnson MD on August 31, 2024 documented in this encounterResearch Psychiatric [id number] History of Present illness Narrative* Serene Morales [...] DM II (diabetes mellitus, type II), controlled ([facility]) 01/15/2023 GERD (gastroesophageal reflux disease) 01/15/2023 History of NE (myocardial infarction) ([facility]) 01/15/2023 HTN (hypertension) (CMS/[facility]) 01/15/2023 OJEDA (nonalcoholic steatohepatitis) 01/15/2023 Stage 2 chronic kidney disease 2022 Facial lesion 01/21/2023 CAD (coronary artery disease) ([facility]) 06/10/2023 Chemotherapy-induced neutropenia ([facility]) 10/19/2022 Type 2 diabetes mellitus without complications ([facility]) 06/10/2023 Diastasis recti 01/15/2023 Encounter for Medicare annual wellness exam 06/10/2023 Neck muscle spasm 11/20/2023 Throat cancer ([facility]) 12/04/2023 Hyperlipidemia ([facility]) 12/16/2023 Resolved Ambulatory Problems Diagnosis Date Noted Overweight 12/15/2022 Acute pain of right shoulder 12/15/2022 Basal cell carcinoma (BCC) of face 12/15/2022 Chemotherapy-induced neutropenia ([facility]) 10/19/2022 Diastasis recti 01/15/2023 Disorder of prostate 01/15/2023 Glucose intolerance 01/15/2023 History of colonic polyps 01/15/2023 History of malignant neoplasm of colon 01/15/2023 Hypercholesterolemia ([facility]/HCC) 01/15/2023 Raynaud's syndrome 01/15/2023 Vitamin D deficiency 01/15/2023 Past Medical History: Diagnosis Date Diabetes ([facility]) HCVD (hypertensive cardiovascular disease) ([facility]) Hx of myocardial infarction ([facility]/HCC) Hypertension ([facility]) Inguinal hernia, right Raynaud's disease Sinusitis Thyromegaly ([facility]) Type 2 diabetes mellitus ([facility]/HCC) Past Surgical History: Procedure Laterality [...] today. Start quarterly appts documented in this [facility]01-08-2025 History of Present illness Narrative* Mannie Rodriguez NP - 07/15/2024 3:45 PM EST documented in this [facility]12-10-2024 History of Present illness Narrative* Serene [...] disease) 01/15/2023 History of NE (myocardial infarction) ([facility]/HCC) 01/15/2023 HTN (hypertension) (CMS/HCC) 01/15/2023 OJEDA (nonalcoholic steatohepatitis) 01/15/2023 Stage 2 chronic kidney disease 2022 Facial lesion 01/21/2023 CAD (coronary artery disease) ([facility]) 06/10/2023 Chemotherapy-induced neutropenia ([facility]) 10/19/2022 Type 2 diabetes mellitus without complications ([facility]) 06/10/2023 Diastasis recti 01/15/2023 Encounter for Medicare annual wellness exam 06/10/2023 Neck muscle spasm 11/20/2023 Throat cancer ([facility]) 12/04/2023 Hyperlipidemia ([facility]) 12/16/2023 Resolved Ambulatory Problems Diagnosis Date Noted Overweight 12/15/2022 Acute pain of right shoulder 12/15/2022 Basal cell carcinoma (BCC) of face 12/15/2022 Chemotherapy-induced neutropenia ([facility]) 10/19/2022 Diastasis recti 01/15/2023 Disorder of prostate 01/15/2023 Glucose intolerance 01/15/2023 History of colonic polyps 01/15/2023 History of malignant neoplasm of colon 01/15/2023 Hypercholesterolemia ([facility]) 01/15/2023 Raynaud's syndrome 01/15/2023 Vitamin D deficiency 01/15/2023 Past Medical History: Diagnosis Date Diabetes (CMS/[facility]) HCVD (hypertensive cardiovascular disease) ([facility]) Hx of myocardial infarction ([facility]) Hypertension ([facility]) Inguinal hernia, right Raynaud's disease Sinusitis Thyromegaly (CMS/[facility]) Type 2 diabetes mellitus ([facility]) Past Surgical History: Procedure Laterality [...] quarterly appts next visit documented in this encounterResearch Psychiatric [id number] History of Present illness Narrative* Barry Stevens, SYSTEM VALIDATION ENGINEER-[employer] - 05/26/2024 10:20 AM EST Lesions: Location: [...] Actinic keratosis (6) Left Eyebrow, Left Superior Paragon, Left Zygomatic Area, Right Forehead, Right Scaphoid Fossa, RightSuperior Paragon Erythematous scaly papules Patient was counseled regarding [...] limited to risks of scarring, darker or cloth dyeing range tender pigmentary changes, recurrence, incomplete removal and infection. 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) 12/15/2022 Metastatic cancer to cervical lymph nodes ([facility]) 12/15/2022 Arteriosclerotic cardiovascular disease ([facility]) 01/15/2023 Colon cancer ([facility]) 11/19/2012 DM II (diabetes mellitus, type II), controlled ([facility]) 01/15/2023 GERD (gastroesophageal reflux disease) 01/15/2023 History of NE (myocardial infarction) ([facility]) 01/15/2023 HTN (hypertension) (CMS/HCC) 01/15/2023 OJEDA (nonalcoholic [...] today. Monthly till July documented in this encounterResearch Psychiatric [id number] Instructions* Patient Instructions* John England MD - 05/06/2024 3:[address] Neck and Chest in 6 months Labs same day RTC 1 week after to review documented in this encounterLake [facility]24 NoteHNO ID: [id number] Author: JOHN ENGLAND MD Service: ? Author Type: Physician Type: Progress Notes Filed: 05/09/2024 10:42 Note Text: NAME: Manish Root [facility] NO.: [id number] DATE OF SERVICE: May 06, 2024 (Jacquelyn) [...] Ca Stage 3 - 2/5 LN + [place] regimen on protocol Updated Visit, May 06, [...] showing a new consolidatio (more content not included)...[facility]10-30-2024 History of Present illness Narrative* John England MD - 05/06/2024 3:04 PM EDT Images from the original note were not included. NAME: Manish Root [facility] NO.: [id number] DATE OF SERVICE: May 06, 2024 (Jacquelyn) [...] Ca Stage 3 - 2/5 LN + [place] regimen on protocol Updated Visit, May 06, [...] which included preparing to see the patient, [id number] patient care, completing clinical documentation, performing a medically appropriate examination, counseling and educating the patient/family/caregiver, ordering medications, tests, or p rocedures, independently interpreting results (not separately reported), communicating results to the patient/family/caregiver, and care coordination (not separately reported). John England MD, CPE Hematology and Oncology Services Provided at: [facility], [place], [place] CC: Dr. Yordan Morales documented in this encounterLake County [facility]10-30-[facility] History of Present illness Narrative* Yordan Feliz [...] Lymph 1.00 - 4.00 k/uL 0.48 (L) Jerome% % 10.4 Abs Jerome <0.87 k/uL 0.32 Eosin% % 1.6 Abs [...] CT demonstrating stability. Continue surveillance. Signed by: oYrdan Feliz MD cc: Dr. Shaikh Vidal Estrada [address] [place] [address] documented in this encounterLake County [facility]10-30-2024 NoteHNO ID: [id number] Author: Yordan FELIZ MD Service: ? Author [...] Lymph 1.00 - 4.00 k/uL 0.48 (L) Jerome% % 10.4 Abs Jerome <0.87 k/uL 0.32 Eosin% % 1.6 Abs [...] joint pain o (more content not included)... [facility]10-24-2024 History of Present illness Narrative* Mason Johnson MD - 04/30/2024 9:30 AM EDT Images from the original note were not included. HPI Establish Care Additional comments: Previous pcp dr vidal Loaiza oncology twice yearly [facility] Last edited by Niki Alvarez LPN on 04/30/2024 9:03 AM. Subjective Patient ID: Manish Root is a 78 y.o. male who presents for Establish Care (Previous pcp dr drake/Josse oncology twice yearly [facility]), Diabetes, and Hypertension. Diabetes Mellitus [...] 74 - 99 mg/dL Final Comment: The [employer] Diabetes Association (ADA) provides guidance for cutoff [...] Standards of Medical Care in Diabetes 2016, [employer]. Diabetes Care. 2016.39(Suppl 1). [facility] [...] all orders for this visit: Primary hypertension ([facility]) - Controlled. Controlled type 2 diabetes mellitus without complication, without long-term current use of insulin ([facility]) - POCT Glycated hemoglobin, total today - 7.4%. No changes in therapy. 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 ([facility]) - The patient is experiencing no symptoms from this condition currently, it is considered medicallycontrolled and no change in current therapies are planned. Follow up in about 4 months (around 08/31/2024) for Routine F/U. documented in this encounterResearch Psychiatric [id number] History of Present illness Narrative* Rafael Zurita [...] PATIENT PRESENTS WITH AN IMPLANTABLE OR ATTACHED STOCK PARTS FABRICATOR: No RADIOLOGY DEPARTMENT: CT; Exam(s) Completed: Chest and Neck PERIPHERAL IV DATA: Site assessment: Clean,Dry and Intact, Site disposition Discontinued SIGNED BY: RT Perlita(R) April 23, 2024 9:35 AM documented in this encounterLake County [facility]10-15-2024 History of Present illness Narrative* Serene Morales [...] 10/19/2022 Type 2 diabetes mellitus without complications ([facility]/HCC) 06/10/2023 Diastasis recti 01/15/2023 Encounter [...] Monthly appt till July documented in this encounterResearch Psychiatric [id number] History of Present illness Narrative* Serene Morales [...] Arteriosclerotic cardiovascular disease (CMS/HCC) 01/15/2023 Colon cancer ([facility]/HCC) 11/19/2012 DM II (diabetes mellitus, type II), controlled ([facility]/HCC) 01/15/2023 GERD (gastroesophageal reflux disease) 01/15/2023 History of NE (myocardial infarction) (CMS/HCC) 01/15/2023 HTN (hypertension) (CMS/HCC) 01/15/2023 OJEDA (nonalcoholic steatohepatitis) 01/15/2023 Stage 2 chronic kidney disease 2022 Facial lesion 01/21/2023 CAD (coronary artery disease) (CMS/HCC) 06/10/2023 Chemotherapy-induced neutropenia ([facility]) 10/19/2022 Type 2 diabetes mellitus without complications ([facility]) 06/10/2023 Diastasis recti 01/15/2023 Encounter for Medicare annual wellness exam 06/10/2023 Neck muscle spasm 11/20/2023 Throat cancer ([facility]) 12/04/2023 Hyperlipidemia ([facility]) 12/16/2023 Resolved Ambulatory Problems Diagnosis Date Noted Overweight 12/15/2022 Acute pain of right shoulder 12/15/2022 Basal cell carcinoma (BCC) of face 12/15/2022 Chemotherapy-induced neutropenia ([facility]/HCC) 10/19/2022 Diastasis recti 01/15/2023 Disorder of prostate 01/15/2023 Glucose intolerance 01/15/2023 History of colonic polyps 01/15/2023 History of malignant neoplasm of colon 01/15/2023 Hypercholesterolemia ([facility]/HCC) 01/15/2023 Raynaud's syndrome 01/15/2023 Vitamin D deficiency 01/15/2023 Past Medical History: Diagnosis Date Diabetes (CMS/HCC) HCVD (hypertensive cardiovascular disease) (CMS/HCC) Hx of myocardial infarction (CMS/HCC) Hypertension (CMS/HCC) Inguinal hernia, right Raynaud's disease Sinusitis Thyromegaly (CMS/[facility]) Type 2 diabetes mellitus ([facility]/HCC) Past Surgical History: Procedure Laterality [...] Monthly appts till July documented in this encounterResearch Psychiatric [id number] History of Present illness Narrative* Serene Morales [...] disease) 01/15/2023 History of NE (myocardial infarction) ([facility]/HCC) 01/15/2023 HTN (hypertension) (CMS/HCC) 01/15/2023 [...] Monthly appts till July documented in this encounterResearch Psychiatric [id number] History of Present illness Narrative* Yordan Feliz [...] Lymph 1.00 - 4.00 k/uL 0.48 (L) Jerome% % 10.4 Abs Jerome <0.87 k/uL 0.32 Eosin% % 1.6 Abs [...] Feliz MD cc: Dr. Shaikh Vidal Estrada [address] [place] [address] documented in this encounterLake County [facility]04-17-2024 Instructions* Patient Instructions* Kelli Merchatn - 10/23/2023 11:[address] Neck and Chest in 6 months Labs same day, include anemia workup RTC 1 week after to review documented in this encounterLake County [facility]04-17-2024 History of Present illness Narrative* John England MD - 10/23/2023 10:45 AM EDT Images from the original note were not included. NAME: Manish Root CLINIC NO.: [id number] DATE OF SERVICE: October 23, 2023 (amannc) Some elements in this clinic note that [...] Ca Stage 3 - 2/5 LN + [place] regimen on protocol Updated Visit, October 23, [...] which included preparing to see the patient, [id number] patient care, completing clinical documentation, performing a medically appropriate examination, counseling and educating the patient/family/caregiver, ordering medications, tests, or p rocedures, independently interpreting results (not separately reported), communicating results to the patient/family/caregiver, and care coordination (not separately reported). John England MD, CPE Hematology and Oncology Services Provided at: [place], [place] Scribe Attestation: This note was scribed [...] CC: Dr. Yordan Morales documented in this encounterLake County [facility]04-10-2024 Miscellaneous Notes* Telephone Encounter - Rafael Bob RN - 10/16/2023 1:14 PM EDT Pt had labs drawn today. Requests that the results be faxed to his PCP, Dr Drake. Results of CBC and CMP faxed to [phone]. Rafael Bob RN documented in this encounterLake County [facility]04-10-2024 History of Present illness Narrative* Rafael Zurita [...] PATIENT PRESENTS WITH AN IMPLANTABLE OR ATTACHED STOCK PARTS FABRICATOR: No RADIOLOGY DEPARTMENT: CT; Exam(s) Completed: Chest and Neck PERIPHERAL IV DATA: Site assessment: Clean,Dry and Intact, Site disposition Discontinued SIGNED BY: RT Perlita(R) October 16, 2023 11:34 AM documented in this encounterLake County [facility]12-06-2023 History of Present illness Narrative* Gisela Villavicencio [...] 12, 2023 8:18 AM documented in this encounterLake [facility] West2023 History of Present illness Narrative* Yordan Feliz [...] Feliz MD cc: Dr. Shaikh Vidal Estrada [address] [place] [address] documented in this encounterLake County [facility]09-13-2023 Instructions* Patient Instructions* John England MD - 03/20/2023 1:[address] Chest in 3 months Labs same day RTC 1 week after to review. documented in this encounterLake County [facility]09-13-2023 History of Present illness Narrative* John England MD - 03/20/2023 1:15 PM EDT Images from the original note were not included. NAME: Manish Root [facility] NO.: [id number] DATE OF SERVICE: March 20, 2023 (Jacquelyn) [...] Ca Stage 3 - 2/5 LN + [place] regimen on protocol Updated Visit, March 20, [...] which included preparing to see the patient, [id number] patient care, completing clinical documentation, performing a medically appropriate examination, counseling and educating the patient/family/caregiver, ordering medications, tests, or p rocedures, independently interpreting results (not separately reported), communicating results to the patient/family/caregiver, and care coordination (not separately reported). John England MD, CPE Hematology and Oncology Services Provided at: [place], [place] CC: Dr. Yordan Morales documented in this encounterLake County [facility]09-07-2023 History of Present illness Narrative* Jonathan Partida [...] 14, 2023 1:52 PM documented in this encounterLake County [facility]08-02-2023 Instructions* Patient Instructions* John England MD - 02/06/2023 12:[address] Chest in 5 weeks RTC 6 weeks to review please documented in this encounterLake County [facility]08-02-2023 History of Present illness Narrative* Yordan Feliz [...] Feliz MD cc: Dr. Shaikh Vidal Estrada [address] [place] [address] documented in this encounterLake County [facility]08-02-2023 History of Present illness Narrative* John nEgland MD - 02/06/2023 11:39 AM EDT Images from the original note were not included. NAME: Dk Manish [facility] NO.: [id number] DATE OF SERVICE: February 06, 2023 (Jacquelyn) [...] Ca Stage 3 - 2/5 LN + [place] regimen on protocol Updated Visit, February 06, [...] which included preparing to see the patient, [id number]-[id number] patient care, completing clinical documentation, performing a medically appropriate examination, counseling and educating the patient/family/caregiver, ordering medications, tests, or p rocedures, communicating with other HCPs (not separately reported), independently interpreting results (not separately reported), communicating results to the patient/family/caregiver, and care coordination (not separately reported). John England MD, CPE Hematology and Oncology Services Provided at: [place], [place] CC: Dr. Yordan Morales documented in this encounterLake County Memorial [facility]08-02-2023 Nurse Note* Lala Pitt MA - 02/06/2023 11:31 AM EDT Patient has easy bruising more so on arms, voice is always changing and has a lot of phlegm. Lala Hooper MA documented in this encounterLake County Memorial [facility]07-25-2023 History of Present illness Narrative* Jonathan Partida [...] SIGNATURE: Jonathan Partida RN PATIENT NAME: Manish Roto DATE: January 29, 2023 TIME: 11:06 AM [...] radiation safety can be found usingthis link: [email or web address] SIGNATURE: RT Aron(R) PATIENT NAME: Manish Root DATE: January 29, 2023 TIME: 11:48 AM PAGER/CONTACT #: documented in this encounterLake County Memorial [facility]05-24-2023 History of Present illness Narrative* G Jeyson [...] by: Yordan Feliz MD cc: Mannie Nelson Formerly named [facility] N JOSE Sam [place] [address] Natalie Surinder [address] [place] [address] [place] [id number] documented in this encounterLake [facility] Instructions* Patient Instructions* John England MD - 11/07/2022 9:53 AM EDT Continue seeing Dr. Feliz and Dr. Morales. RTC in 12 -13 weeks (after PET is complete) PET per Dr. Feliz Coordinate return on same date as Dr. Feliz. Labs on day return documented in this encounterLake County [facility]05-03-2023 History of Present illness Narrative* John England MD - 11/07/2022 9:21 AM EDT Images from the original note were not included. NAME: Manish Root [facility] NO.: [id number] DATE OF SERVICE: November 07, 2022 (Jacquelyn) [...] Ca Stage 3 - 2/5 LN + [place] regimen on protocol Updated Visit, November 07, [...] cisplatin. Initial Visit, August 16, 2022: Manish Roto presents today Hematology and Oncology evaluation. He [...] which included preparing to see the patient, [id number] patient care, completing clinical documentation, performing a medically appropriate examination, counseling and educating the patient/family/caregiver, ordering medications, tests, or p rocedures, and independently interpreting results (not separately reported). John England MD, CPE Hematology and Oncology Services Provided at: [place], [place] CC: Dr. 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 NAME: RootManish [facility] NO.: [id number] DATE OF SERVICE: October 31, 2022 (Surinder) [...] Ca Stage 3 - 2/5 LN + [place] regimen on protocol Updated Visit, October 31, [...] No family history on file. Natalie Cadena APRN.[facility] Hematology and Oncology Services Provided at: [facility], [place], [place] CC: Dr. Yordan Morales I spent a total of 30 minutes on the date of the service which included preparing to see the patient, kpiq-[id number] patient care, completing clinical documentation, obtaining and/or reviewing separately obtained history, performing a medically appropriate examination, counseling and educating the pat ient/family/caregiver, ordering medications, tests, or procedures, independently interpreting results (not separately reported), and communicating results to the patient/family/caregiver. documented in this encounterLake County [facility]04-26-2023 History of Present illness Narrative* G Jeyson [...] will have further close follow-up with Dr. Moraels. Anticipate PET scan 12 weeks from completion of treatment. Continue supportive care. We will plan to see patient back in 3 to 4 weeks. Signed by: Yordan Feliz MD cc: Mannie Nelson [facility] [place] [address] Natalie Cadena [address] [place] [address] [place] [address] documented in this encounterLake County [facility]04-20-2023 History of Present illness Narrative* Natalie Cadena APRN.[employer] - 10/25/2022 10:01 AM EDT Images from the original note were not included. NAME: Manish Root [facility] NO.: [id number] DATE OF SERVICE: October 25, 2022 (Surinder) [...] Ca Stage 3 - 2/5 LN + [place] regimen on protocol Updated Visit, October 25, [...] reviewed. No pertinent family history. Natalie Cadena APRN.[employer] Hematology and Oncology Services Provided at: [place], [place] CC: Dr. Yordan Morales I spent a total of 30 minutes on the date of the service which included preparing to see the patient, [id number] patient care, completing clinical documentation, obtaining and/or reviewing separately obtained history, performing a medically appropriate examination, counseling and educating the pat ient/family/caregiver, ordering medications, tests, or procedures, independently interpreting results (not separately reported), and communicating results to the patient/family/caregiver. documented in this encounterLake County [facility]04-17-2023 History of Present illness Narrative* Yordan Feliz MD - 10/22/2022 12:00 AM EDT [facility] Radiation Oncology Department RADIATION ONCOLOGY - COMPLETION [...] cc: Dr. Jacquelyn Morales documented in this encounterLake County [facility]04-14-[facility]23 History of Past illness Narrative* ProblemNoted DateDiagnosed DateResolved DateChemotherapy-induced [id number] malignant neoplasm of colon documented as of this encounter (statuses as of 10/24/2023) [facility]04-14-[facility] History of Present illness Narrative* Dee Gil [...] Gil MS, RDN, LD documented in this encounterLake County [facility]04-14-2023 Instructions* Patient Instructions* John England MD - 10/19/2022 10:25 AM EDT Ciproflox prophylaxis. Neupogen 480 mcg x 1 today Needs to hydrate. Labs next Saturday CBC, CMP, possible hydration Stay for results - see Natalie documented in this encounterLake County [facility]04-14-2023 History of Present illness Narrative* John England MD - 10/19/2022 10:05 AM EDT Images from the original note were not included. NAME: Manish Root [facility] NO.: [id number] DATE OF SERVICE: October 19, 2022 (Jacquelyn) [...] Ca Stage 3 - 2/5 LN + [place] regimen on protocol Updated Visit, October 19, [...] which included preparing to see the patient, [id number] patient care, completing clinical documentation, obtaining and/or reviewing separately obtained history, counseling and educating the patient/family/caregiver, ordering medications, cliff ts, or procedures, and independently interpreting results (not separately reported). John England MD, CPE Hematology and Oncology Services Provided at: [place], [place] CC: Dr. Yordan Morales documented in this encounterLake County [facility]04-10-2023 History of Present illness Narrative* Yordan Feliz [...] discussed. Yordan Feliz MD documented in this encounterLake County [facility]04-04-2023 Miscellaneous Notes* Telephone Encounter - Diana García [...] recommendations? Diana García LPN documented in this encounterLake County [facility]04-03-2023 History of Present illness Narrative* Yordan Feliz [...] outlined. Yordan Feliz MD documented in this encounterLake County [facility]03-31-2023 History of Present illness Narrative* Dee Gil RD - 10/05/2022 10:45 AM EDT Oncology Nutrition Therapy Progress Note Attemped to see patient, however patient left after radiation treatment and did not stay for appointment with dietitian. Signed by: Dee Gil MS, RDN, LD documented in this encounterLake County [facility]03-27-2023 History of Present illness Narrative* Natalie Cadena APRN.[employer] - 10/01/2022 11:26 AM EDT Images from the original note were not included. NAME: Manish Root [facility] NO.: [id number] DATE OF SERVICE: October 01, 2022 (Surinder) [...] Ca Stage 3 - 2/5 LN + [place] regimen on protocol Updated Visit, October 01, [...] APRN.CNP Hematology and Oncology Services Provided at: [place], [place] CC: Dr. Yordan Morales I spent a total of 30 minutes on the date of the service which included preparing to see the patient, [id number] patient care, completing clinical documentation, obtaining and/or reviewing separately obtained history, performing a medically appropriate examination, counseling and educating the pat ient/family/caregiver, ordering medications, tests, or procedures, independently interpreting results (not separately reported), and communicating results to the patient/family/caregiver. documented in this encounterLake County [facility]03-27-2023 History of Present illness Narrative* Yordan Feliz [...] outlined. Yordan Feliz MD documented in this encounterLake County [facility]03-20-2023 History of Present illness Narrative* Yordan Feliz [...] Continue radiation as outlined. documented in this encounterLake County [facility]03-17-2023 History of Present illness Narrative* Dee Gil, [...] Dosing Weight: 84.8 kg Estimated kilocalorie needs: 4831-9237 kilocalories determined by 25-30 kcal/kg Estimated protein needs: 85-102 grams determined by 1.0-1.2 g/kg Current weight Estimated fluid needs: ~5269-7087 milliliters based on 1 mL per kcal [...] Gil MS, RDN, LD documented in this encounterLake County [facility]03-13-2023 History of Present illness Narrative* G Jeyson [...] Continue radiation as outlined. documented in this encounterLake County [facility]03-06-2023 History of Present illness Narrative* Yordan Feliz [...] Continue radiation as outlined. documented in this encounterLake County [facility]03-03-2023 Miscellaneous Notes* Telephone Encounter - ISH Waite - 09/07/2022 12:11 PM EST SOCIAL WORK FOLLOW UP NOTE: CANCER CENTER Date of service:09/07/22 Manish Root is being seen for a follow up social work visit. Today's visit includes: patient TOPICS ADDRESSED: community resources and [facility] PLAN: Assist with financial support applications and Continue follow up as needed F/U APPOINTMENT: PRN Assigned SW listed in Care Team tab: Yes Patient dropped off a partial completed intake form for the [facility]. Sw completed the medical section of the form and faxed it to Maren at the [facility]. JEANNETTE called Maren to verify that the fax was received. SW called Patient to let him know that his application was received and he needs to call Maren to talk about next steps. SW will remain available and will follow up as appropriate. CHARLIE Waite documented in this encounterLake County [facility]03-02-2023 Miscellaneous Notes* Telephone Encounter - Rafael Bob [...] protocol. Rafael Bob RN documented in this encounterLake County [facility]02-27-2023 History of Present illness Narrative* Nica Green [...] ordered. Araceli Anne RN documented in this encounterLake County [facility]02-27-2023 Instructions* Patient Instructions* John England MD - 09/03/2022 11:12 AM EST Start Cisplatin weekly to start with radiation Labs weekly please. RTC 1 week See Amina / Natalie Hillman same day. documented in this encounterLake County [facility]02-27-2023 History of Present illness Narrative* John England MD - 09/03/2022 10:45 AM EST Images from the original note were not included. NAME: Manish Root [facility] NO.: [id number] DATE OF SERVICE: September 03, 2022 (Jacquelyn) [...] Ca Stage 3 - 2/5 LN + [place] regimen on protocol Updated Visit, September 03, [...] which included preparing to see the patient, lcvr-ea-hglw patient care, completing clinical documentation, performing a medically appropriate examination, counseling and educating the patient/family/caregiver, ordering medications, tests, or p rocedures, communicating with other HCPs (not separately reported), independently interpreting results (not separately reported), and care coordination (not separately reported). John England MD, CPE Hematology and Oncology Services Provided at: [place], [place] CC: MD Serene Mcclendon MD documented in this encounterLake County [facility]02-27-2023 History of Present illness Narrative* Yordan Feliz [...] Continue radiation as prescribed. documented in this encounterLake County [facility]02-22-2023 Miscellaneous Notes* Telephone Encounter - Rafael Bob RN - 08/29/2022 12:52 PM EST Pt calls w/ questions pertaining to his upcoming treatment. Questions reviewed and answered. Pt denies any further questions at this time. Rafael Bob RN documented in this encounterLake County [facility]02-21-2023 Miscellaneous Notes* Telephone Encounter - Rafael Bob [...] Thanks! Rafael Bob RN documented in this encounterLake County [facility]02-20-2023 Miscellaneous Notes* Telephone Encounter - Rafael Bob RN - 08/27/2022 11:23 AM EST Pt had several questions pertaining to treatment while he was here today. Questions reviewed and answered in person. No additional questions noted. Appointment reminder provided to pt as well. Rafael Bob RN documented in this encounterLake County [facility]02-20-2023 History of Present illness Narrative* Barry Burnett [...] 941 PATIENT DISCHARGED TO: Ambulatory patient, left [place] department area. A Diagnostic radioactive procedure has taken place, with no further precautions necessary other than routine body substance precautions. More information regarding radiation safety can be found usingthis link: [email or web address] SIGNATURE: RT Perlita(R) PATIENT NAME: Manish Root DATE: August 27, 2022 TIME: 9:53 AM PAGER/CONTACT #: documented in this encounterLake County [facility]02-17-2023 Miscellaneous Notes* Telephone Encounter - Madonna Barnes [...] Thanks! 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 0:14 AM documented in this encounterLake County [facility]02-14-2023 Miscellaneous Notes* Telephone Encounter - Rafael Bob RN - 08/21/2022 3:16 PM EST Pt will be in on for education (Cisplatin). Scripts for antiemetics pended. Sincere: Please place chemotherapy orders. Thanks! Rafael Bob RN documented in this encounterLake County [facility]02-13-2023 History of Present illness Narrative* Dee Gil, [...] Dosing Weight: 84.7 kg Estimated kilocalorie needs: 7155-6520 kilocalories determined by 25-30 kcal/kg Estimated protein needs: 85-102 grams determined by 1.0-1.2 g/kg Dosing weight Estimated fluid needs: ~3209-4751 milliliters based on 1 mL per kcal [...] Gil MS, RDN, LD documented in this encounterLake County [facility]02-09-2023 Instructions* Patient Instructions* John England MD - 08/16/2022 4:45 PM EST Will plan Cisplatin weekly to start with radiation Needs labs next visit at time of Sim. RTC prior to start Consent signed Needs education documented in this encounterLake County [facility]02-09-2023 History of Present illness Narrative* John England MD - 08/16/2022 4:06 PM EST Images from the original note were not included. NAME: Manish Root [facility] NO.: [id number] DATE OF SERVICE: August 16, 2022 Referring [...] Ca Stage 3 - 2/5 LN + [place] regimen on protocol Initial Visit, August 16, [...] which included preparing to see the patient, [id number] patient care, completing clinical documentation, performing a medically appropriate examination, counseling and educating the patient/family/caregiver, ordering medications, tests, or p rocedures, communicating with other HCPs (not separately reported), independently interpreting results (not separately reported), and care coordination (not separately reported). John England MD, CPE Hematology and Oncology Services Provided at: [place], [place] CC: MD Serene Mcclendon MD documented in this encounterLake County [facility]02-08-2023 Miscellaneous Notes* Telephone Encounter - Randal Brooks - 08/15/2022 1:14 PM EST Patient called back and said that he is scheduled at [facility] in [place], [place] 08/15/22. Dental evaluation form has been faxed to: [phone]. Randal Brooks * Telephone Encounter - Randal Brooks - 08/15/2022 11:47 AM EST Patient has been scheduled for dental appointment at [facility] on 09/04. Due to the nature of [...] you Nela Antoine RN documented in this encounterLake County [facility]02-07-2023 History of Present illness Narrative* G Jeyson [...] voice changes that his family noticed at [facility], and he has had approximate 11 [...] the lung. Would recommend concurrent radiation with pamunkey based chemotherapy. Patient is eligible for current [...] by: Yordan Feliz MD cc: Mannie Nelson [address] [place] [id number] Serene Morales MD [address] [place] [id number] documented in this encounterLake County [facility]02-07-2023 Nurse Note* Nela Antoine RN - 08/14/2022 10:58 AM EST Radiation Therapy - Patient Education Note PATIENT NAME: Manish Root PATIENT August 14, 2022 [facility] FACILITY/LOCATION: [facility] READINESS TO LEARN Cognitive Ability: Alert and [...] by: Nela Antoine RN documented in this encounterLake County [facility]01-24-2023 NoteOPERATIVE NOTE OPERATION DATE: 07/31/2022 PRIMARY CARE [...] to the recovery room in good condition.[id number] NoteOPERATIVE NOTE OPERATION DATE: 07/18/2022 PREOPERATIVE DIAGNOSIS: [...] on the pathology results. CC: Patient's [facility] physicianHolmes [facility]12[facility] NoteChief Complaint consultation for colon recall [...] Oral, Daily ergocalciferol 50,000 intl units Cap, 51935 International_Unit= 1 cap(s), Oral, qWeek fenofibrate 134 [...] 06/13/2022 Family History Patient (more content not included)...[facility] HospitalComment on above:Result Comment: Electronically Signed By: JAQUAN WELCH, Renea Anderson\Date and Time Signed: 06/13/22 15:31 [id number] History of Past illness Narrative* ProblemNoted DateResolved DateOverlapping malignant neoplasm of colon documented as of this encounter (statuses as of 08/14/2022) [facility] History of Past illness Narrative* ProblemNoted Date Resolved DateOverlapping malignant neoplasm of colon documented as of this encounter (statuses as of 08/14/2022) [facility] History of Past illness Narrative* ProblemNoted Date Resolved DateOverlapping malignant neoplasm of colon documented as of this encounter (statuses as of 08/15/2022) [facility] History of Past illness Narrative* ProblemNoted Date Resolved DateOverlapping malignant neoplasm of colon documented as of this encounter (statuses as of 08/17/2022) [address]22-2015 History of Past illness Narrative* ProblemNoted Date Resolved DateOverlapping malignant neoplasm of colon documented as of this encounter (statuses as of 08/20/2022) [address]22[address]2015 History of Past illness Narrative* ProblemNoted Date Resolved DateOverlapping malignant neoplasm of colon documented as of this encounter (statuses as of 08/22/2022) [address]22[address]2015 History of Past illness Narrative* ProblemNoted Date Resolved DateOverlapping malignant neoplasm of colon documented as of this encounter (statuses as of 08/22/2022) [address]22[address]2015 History of Past illness Narrative* ProblemNoted Date Resolved DateOverlapping malignant neoplasm of colon documented as of this encounter (statuses as of 08/24/2022) [address]22[address]2015 History of Past illness Narrative* ProblemNoted Date Resolved DateOverlapping malignant neoplasm of colon documented as of this encounter (statuses as of 08/24/2022) [address]22[address]2015 History of Past illness Narrative* ProblemNoted Date Resolved DateOverlapping malignant neoplasm of colon documented as of this encounter (statuses as of 08/27/2022) [address]22[address]2015 History of Past illness Narrative* ProblemNoted Date Resolved DateOverlapping malignant neoplasm of colon documented as of this encounter (statuses as of 08/27/2022) [address]22[address]2015 History of Past illness Narrative* ProblemNoted Date Resolved DateOverlapping malignant neoplasm of colon documented as of this encounter (statuses as of 08/28/2022) [address]22[address]2015 History of Past illness Narrative* ProblemNoted Date Resolved DateOverlapping malignant neoplasm of colon documented as of this encounter (statuses as of 08/29/2022) [address]22[address]2015 History of Past illness Narrative* ProblemNoted Date Resolved DateOverlapping malignant neoplasm of colon documented as of this encounter (statuses as of 09/03/2022) [address]22[address]2015 History of Past illness Narrative* ProblemNoted Date Resolved DateOverlapping malignant neoplasm of colon documented as of this encounter (statuses as of 09/03/2022) [address] History of Past illness Narrative* ProblemNoted Date Resolved DateOverlapping malignant neoplasm of colon documented as of this encounter (statuses as of 09/04/2022) [address]22[address]2015 History of Past illness Narrative* ProblemNoted Date Resolved DateOverlapping malignant neoplasm of colon documented as of this encounter (statuses as of 09/06/2022) [address] History of Past illness Narrative* ProblemNoted Date Resolved DateOverlapping malignant neoplasm of colon documented as of this encounter (statuses as of 09/07/2022) [address]22[address]2015 History of Past illness Narrative* ProblemNoted Date Resolved DateOverlapping malignant neoplasm of colon documented as of this encounter (statuses as of 09/10/2022) [address] History of Past illness Narrative* ProblemNoted Date Resolved DateOverlapping malignant neoplasm of colon documented as of this encounter (statuses as of 09/10/2022) [address] History of Past illness Narrative* ProblemNoted Date Resolved DateOverlapping malignant neoplasm of colon documented as of this encounter (statuses as of 09/11/2022) [address]2015 History of Past illness Narrative* ProblemNoted Date Resolved DateOverlapping malignant neoplasm of colon documented as of this encounter (statuses as of 09/17/2022) [address]22[address]2015 History of Past illness Narrative* ProblemNoted Date Resolved DateOverlapping malignant neoplasm of colon documented as of this encounter (statuses as of 09/18/2022) [address]22[address]2015 History of Past illness Narrative* ProblemNoted Date Resolved DateOverlapping malignant neoplasm of colon documented as of this encounter (statuses as of 09/21/2022) [address]22[address]2015 History of Past illness Narrative* ProblemNoted Date Resolved DateOverlapping malignant neoplasm of colon documented as of this encounter (statuses as of 09/24/2022) [address]22[address]2015 History of Past illness Narrative* ProblemNoted Date Resolved DateOverlapping malignant neoplasm of colon documented as of this encounter (statuses as of 10/01/2022) [address]22[address]2015 History of Past illness Narrative* ProblemNoted Date Resolved DateOverlapping malignant neoplasm of colon documented as of this encounter (statuses as of 10/03/2022) [facility] of Past illness Narrative* ProblemNoted Date Resolved DateOverlapping malignant neoplasm of colon documented as of this encounter (statuses as of 10/05/2022) [address]2015 History of Past illness Narrative* ProblemNoted Date Resolved DateOverlapping malignant neoplasm of colon documented as of this encounter (statuses as of 10/08/2022) [address]22[address]2015 History of Past illness Narrative* ProblemNoted Date Resolved DateOverlapping malignant neoplasm of colon documented as of this encounter (statuses as of 10/09/2022) [address]2015 History of Past illness Narrative* ProblemNoted Date Resolved DateOverlapping malignant neoplasm of colon documented as of this encounter (statuses as of 10/11/2022) [address]2015 History of Past illness Narrative* ProblemNoted Date Resolved DateOverlapping malignant neoplasm of colon documented as of this encounter (statuses as of 10/15/2022) [address] History of Past illness Narrative* ProblemNoted Date Resolved DateOverlapping malignant neoplasm of colon documented as of this encounter (statuses as of 10/19/2022) [address] History of Past illness Narrative* ProblemNoted Date Resolved DateOverlapping malignant neoplasm of colon documented as of this encounter (statuses as of 10/20/2022) [address] History of Past illness Narrative* ProblemNoted Date Resolved DateOverlapping malignant neoplasm of colon documented as of this encounter (statuses as of 10/26/2022) [address]2015 History of Past illness Narrative* ProblemNoted Date Resolved DateOverlapping malignant neoplasm of colon documented as of this encounter (statuses as of 2022) [address] History of Past illness Narrative* ProblemNoted Date Resolved DateOverlapping malignant neoplasm of colon documented as of this encounter (statuses as of 2022) [address] History of Past illness Narrative* ProblemNoted Date Resolved DateOverlapping malignant neoplasm of colon documented as of this encounter (statuses as of 2022) [address] History of Past illness Narrative* ProblemNoted Date Resolved DateOverlapping malignant neoplasm of colon documented as of this encounter (statuses as of 11/07/2022) [address] History of Past illness Narrative* ProblemNoted Date Resolved DateOverlapping malignant neoplasm of colon documented as of this encounter (statuses as of 11/07/2022) [address] History of Past illness Narrative* ProblemNoted Date Resolved DateOverlapping malignant neoplasm of colon documented as of this encounter (statuses as of 12/04/2022) [facility]-2015 History of Past illness Narrative* ProblemNoted Date Diagnosed DateResolved DateOverlapping malignant neoplasm of colon04/28/2015 04/28/2015documented as of this encounter (statuses as of 02/06/2023) [facility]2015 History of Past illness Narrative* ProblemNoted Date Diagnosed DateResolved DateOverlapping malignant neoplasm of colon04/28/2015 04/28/2015documented as of this encounter (statuses as of 02/06/2023) [facility]2015 History of Past illness Narrative* ProblemNoted Date Diagnosed DateResolved DateOverlapping malignant neoplasm of colon04/28/2015 04/28/2015documented as of this encounter (statuses as of 02/11/2023) [facility]2015 History of Past illness Narrative* ProblemNoted Date Diagnosed DateResolved DateOverlapping malignant neoplasm of colon04/28/2015 04/28/2015documented as of this encounter (statuses as of 03/20/2023) [facility] History of Past illness Narrative* ProblemNoted Date Diagnosed DateResolved DateOverlapping malignant neoplasm of colon04/28/2015 04/28/2015documented as of this encounter (statuses as of 05/15/2023) [facility] History of Past illness Narrative* ProblemNoted Date Diagnosed DateResolved DateOverlapping malignant neoplasm of colon04/28/2015 04/28/2015documented as of this encounter (statuses as of 10/17/2023) [facility] No data available for this section General [facility] Evaluation note* Diagnosis 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, 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) Malignant neoplasm of head, face, and neck [facility] Diagnosis Tongue cancer (HCC)- Primary Malignant [...] 2 diabetes mellitus without complication, unspecified whether alf insulin use (HCC) Unspecified essential [facility] Cancer of the base [...] 3b CKD (HCC) [facility] Diagnosis Head and neck cancer (HCC)- Primary Malignant neoplasm of head, face, and neck [facility]Evalunem[facility] foundation noteNo assessment information availableNorwalk [facility] Work Phone: Evaluation note* Diagnosis Lung nodules Other nonspecific abnormal finding of lung field 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) [facility]* Diagnosis 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) Mass of right lung [facility]* Diagnosis Lung nodules Other nonspecific abnormal finding of lung field [facility] Diagnosis 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) [facility]* Diagnosis Tongue cancer (HCC) 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, 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) Malignant neoplasm of head, face, and neck [facility] Diagnosis Primary hypertension (CMS/HCC)- Primary Unspecified essential hypertension 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) Controlled type [...] hyperlipidemia type (CMS/HCC) 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) Controlled type 2 diabetes mellitus without complication, without long-term current use of insulin (CMS/HCC) 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 [facility] Diagnosis 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 Other nonspecific abnormal finding of lung field [facility]* Diagnosis Primary hypertension (CMS/HCC)- Primary Unspecified essential hypertension 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) Controlled type [...] hyperlipidemia type (CMS/HCC) 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) Controlled type 2 diabetes mellitus without complication, without long-term current use of insulin (CMS/HCC) Primary hypertension (CMS/HCC)- Primary Unspecified essential hypertension Controlled type 2 diabetes mellitus without complication, without long-term current use of insulin (CMS/HCC) 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) documented in this encounter [facility]* Diagnosis 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 Lung nodules Other nonspecific abnormal finding of lung field Stage 3 chronic kidney disease, unspecified whether stage 3a or 3b CKD (HCC) [facility] Head and neck cancer (HCC)- Primary Malignant neoplasm of head, face, and neck [facility] Diagnosis Primary hypertension (CMS/HCC)- Primary Unspecified essential hypertension 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) Controlled type [...] hyperlipidemia type (CMS/HCC) 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) Controlled type 2 diabetes mellitus without complication, without long-term current use of insulin (CMS/HCC) Primary hypertension (CMS/HCC) Unspecified essential hypertension documented in this encounter [facility] HealthcareEvaluation note* Diagnosis Primary hypertension (CMS/HCC)- Primary Unspecified essential hypertension 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) Controlled type [...] hyperlipidemia type (CMS/HCC) 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) Controlled type 2 diabetes mellitus without complication, without long-term current use of insulin (CMS/HCC) Seborrheic keratosis- Primary Actinic keratosis documented in this encounter [facility]Evaluation note* Diagnosis Primary hypertension (CMS/HCC)- Primary Unspecified essential hypertension 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) Controlled type [...] hyperlipidemia type (CMS/HCC) 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) Controlled type 2 diabetes mellitus without complication, without long-term current use of insulin (CMS/HCC) 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 documented in this encounter [facility] HealthcareEvaluation [facility]* Diagnosis 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 documented in this encounter [facility]Evaluation [facility]* Diagnosis Primary hypertension (CMS/HCC)- Primary Unspecified essential hypertension 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) Controlled type [...] hyperlipidemia type (CMS/HCC) 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) Controlled type [...] Unspecified essential hypertension 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) Controlled type 2 diabetes mellitus without complication, without long-term current use of insulin (CMS/[facility]) Encounter for Medicare annual wellness [...] hyperlipidemia type (CMS/HCC) 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) Controlled type 2 diabetes mellitus without complication, without long-term current use of insulin (CMS/HCC) Need for vaccination Need for prophylactic vaccination and inoculation against unspecified single disease documented in this encounter [facility]* Diagnosis Primary hypertension (CMS/HCC)- Primary Unspecified essential hypertension 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) Controlled type [...] hyperlipidemia type (CMS/HCC) 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) Controlled type 2 diabetes mellitus without complication, without long-term current use of insulin (CMS/HCC) 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 documented in this encounter [facility] HealthcareEvaluation note* Diagnosis Primary hypertension (CMS/HCC)- Primary Unspecified essential hypertension 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) Controlled type [...] hyperlipidemia type (CMS/HCC) 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) Controlled type [...] unspecified Actinic keratosis documented in this encounter [facility] HealthcareEvaluation note* Diagnosis Primary hypertension (CMS/HCC)- Primary Unspecified essential hypertension 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) Controlled type 2 diabetes mellitus without complication, without long-term current use of insulin ([facility]) Encounter for Medicare annual wellness exam Neck muscle spasm- Primary Type 2 diabetes mellitus without complications (/HCC) Controlled type 2 diabetes mellitus without complication, without long-term current use of insulin (/[facility]) Stage 2 chronic kidney disease- Primary Type 2 diabetes mellitus without complication, without long-term current use of insulin ([facility]) Primary hypertension ([facility]) Unspecified essential hypertension Hyperlipidemia, unspecified hyperlipidemia type (/[facility]) 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 (/[facility]) Controlled type 2 diabetes mellitus without complication, without long-term current use of insulin ([facility]) Seborrheic keratosis- Primary Actinic keratosis Seborrheic keratosis, inflamed documented in this encounter [facility] HealthcareEvaluation note* Diagnosis Primary hypertension (/HCC)- Primary Unspecified essential hypertension 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 (/[facility]) Controlled type 2 diabetes mellitus [...] use of insulin Primary hypertension (/[facility]) Unspecified essential hypertension Hyperlipidemia, unspecified hyperlipidemia type (/[facility]) 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 (/[facility]) Controlled type 2 diabetes mellitus without complication, without long-term current use of insulin Neck pain on left side- Primary Left hip pain Pain in joint, pelvic region and thigh Osteoarthritis, unspecified osteoarthritis type, unspecified site Stress incontinence of urine documented in this encounter [facility]Evaluation note* Diagnosis Primary hypertension ([facility]/HCC)- Primary Unspecified essential hypertension 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 (/[facility]) Controlled type 2 diabetes mellitus [...] long-term current use of insulin Primary hypertension ([facility]) Unspecified essential hypertension Hyperlipidemia, unspecified hyperlipidemia type (CMS/HCC) 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) Controlled type 2 diabetes mellitus without complication, without long-term current use of insulin 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 documented in this encounter [facility] HealthcareEvaluation note* Diagnosis Primary hypertension (CMS/HCC)- Primary Unspecified essential hypertension 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) Controlled type [...] hyperlipidemia type (CMS/HCC) 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) Controlled type 2 diabetes mellitus without complication, without long-term current use of insulin Primary osteoarthritis of left hip- Primary Neck pain on left side Left hip pain Pain in joint, pelvic region and thigh Spondylosis of cervical region without myelopathy or radiculopathy Rheumatoid arthritis, unspecified documented in this encounter [facility]Evaluation note* Diagnosis 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 Lung nodules Other nonspecific abnormal finding of lung field Stage 3 chronic kidney disease, unspecified whether stage 3a or 3b CKD (HCC) [facility] Acquired hypothyroidism- Primary Unspecified hypothyroidism [facility] Diagnosis Primary hypertension (CMS/HCC)- Primary Unspecified essential hypertension 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) Controlled type [...] hyperlipidemia type (CMS/HCC) 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 ([facility]) Controlled type 2 diabetes mellitus without complication, without long-term current use of insulin 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 Effusion of left knee Acute pain of left knee 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, without long-term current use of insulin ([facility]) documented in this encounter [facility]* Diagnosis Primary hypertension- Primary Unspecified essential hypertension 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 Controlled type 2 diabetes mellitus without complication, without long-term current use of insulin ([facility]) Encounter for Medicare annual wellness exam Neck muscle spasm- Primary Type 2 diabetes mellitus without complications ([facility]) Controlled type 2 diabetes mellitus without complication, without long-term current use of insulin ([facility]) Stage 2 chronic kidney disease- Primary Type 2 diabetes mellitus without complication, without long-term current use of insulin ([facility]) Primary hypertension Unspecified essential hypertension Hyperlipidemia, unspecified hyperlipidemia type 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 Controlled type 2 diabetes mellitus without complication, without long-term current use of insulin ([facility]) Left hip pain- Primary Pain in joint, pelvic region and thigh Effusion of left knee Acute pain of left knee documented in this encounter [facility] HealthcareEvaluation note* Diagnosis Primary hypertension- Primary Unspecified essential hypertension 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 Controlled type 2 diabetes mellitus without complication, without long-term current use of insulin ([facility]) Encounter for Medicare annual wellness exam Neck muscle spasm- Primary Type 2 diabetes mellitus without complications ([facility]) Controlled type 2 diabetes mellitus without complication, without long-term current use of insulin ([facility]) Stage 2 chronic kidney disease- Primary Type 2 diabetes mellitus without complication, without long-term current use of insulin ([facility]) Primary hypertension Unspecified essential hypertension Hyperlipidemia, unspecified hyperlipidemia type 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 Controlled type 2 diabetes mellitus without complication, without long-term current use of insulin ([facility]) Left lumbar radiculitis- Primary Left hip pain Pain in joint, pelvic region and thigh documented in this encounter [facility] HealthcareEvaluation note* Diagnosis Primary hypertension- Primary Unspecified essential hypertension 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 Controlled type 2 diabetes mellitus without complication, without long-term current use of insulin ([facility]) Encounter for Medicare annual wellness [...] unspecified hyperlipidemia type 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 Controlled type 2 diabetes mellitus without complication, without long-term current use of insulin (HCC) 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 documented in this encounter [facility] HealthcareEvaluation note* Diagnosis Primary hypertension- Primary Unspecified essential hypertension 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 Controlled type 2 [...] unspecified hyperlipidemia type 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 Controlled type 2 diabetes mellitus without complication, without long-term current use of insulin (HCC) Primary osteoarthritis of left hip- Primary Pseudogout involving multiple joints Primary hypertension Unspecified essential hypertension 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, without long-term current use of insulin (HCC) Moderate mixed hyperlipidemia not requiring statin therapy documented in this encounter [facility] HealthcareEvaluation note* Diagnosis Primary hypertension- Primary Unspecified essential hypertension 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 Controlled type 2 [...] unspecified hyperlipidemia type 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 Controlled type 2 diabetes mellitus without complication, without long-term current use of insulin (HCC) 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 documented in this encounter [facility] HealthcareEvaluation note* Diagnosis Primary hypertension- Primary Unspecified essential hypertension 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 Controlled type 2 [...] unspecified hyperlipidemia type 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 Controlled type 2 diabetes mellitus without complication, without long-term current use of insulin (HCC) Left hip pain- Primary Pain in joint, pelvic region and thigh Pseudogout involving multiple joints Primary osteoarthritis of left hip documented in this encounter [facility] HealthcareEvaluation note* Diagnosis Primary hypertension- Primary Unspecified essential hypertension 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 Controlled type 2 [...] unspecified hyperlipidemia type 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 Controlled type 2 diabetes mellitus without complication, without long-term current use of insulin (HCC) Primary osteoarthritis of left hip- Primary 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, without long-term current use of insulin (HCC) 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 Abnormal EKG Nonspecific abnormal electrocardiogram (ECG) (EKG) History of heart artery stent documented in this encounter [facility]Evaluation note* Diagnosis Primary hypertension- Primary Unspecified essential hypertension 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 Controlled type 2 [...] unspecified hyperlipidemia type 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 Controlled type 2 diabetes mellitus without complication, without long-term current use of insulin (HCC) Primary osteoarthritis of left hip- Primary Pre-op evaluation documented in this encounter [facility] Discharge instructions No data available for this section General Surgery [place] Progress note No data available for this section [facility] [place] Reason for referral (narrative)* Diagnostic Procedure Only (Routine) - AuthorizedSpecialtyDiagnoses / ProceduresReferred By Contact Referred To ContactMOLECULAR & FUNCTIONAL IMAGING Diagnoses 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) Procedures NM PET/CT SKULL-THIGH SUBSEQUENT PET IMAGING CT ATTENUATION SKULL BASE MID-THIGH Yordan Feliz MD [address] [place] [address] [place] [address] Molecular & Functional Imaging [address] [place] [address] Referral IDStatusReasonStart DateExpiration DateVisits RequestedVisits [id number] Auto-Generated Referral / [facility] for referral (narrative)* Diagnostic Procedure Only (Routine) - ClosedSpecialtyDiagnoses / ProceduresReferred By ContactReferred To ContactMOLECULAR & FUNCTIONAL IMAGING Diagnoses 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) Procedures NM PET/CT SKULL-THIGH SUBSEQUENT PET IMAGING CT ATTENUATION SKULL BASE MID-THIGH Yordan Feliz MD [address] [place] [address] [place] [address] Molecular & Functional Imaging [address] [place] [address] Referral IDStatusReasonStart DateExpiration DateVisits RequestedVisits [id number] Auto-Generated Referral / [facility] for referral (narrative)* Diagnostic Procedure Only (Routine) - ClosedSpecialtyDiagnoses / ProceduresReferred By ContactReferred To ContactMOLECULAR & FUNCTIONAL IMAGING Diagnoses Tongue cancer (HCC) Head and neck cancer (HCC) Procedures NM PET/CT SKULL-THIGH INITIAL PET IMAGING CT ATTENUATION SKULL BASE MID-THIGH Yordan Feliz MD [address] [place] [address] [place] [address] Molecular & Functional Imaging [address] [place] [address] Referral [facility]StatusRe[facility] DateExpiration DateVisits RequestedVisits [id number] Auto-Generated Referral / [facility] for referral (narrative)No reason for referral information availableRegency Hospital [facility] Work Phone: Summary Purpose Family History [...] COMPUTED TOMOGRAPHY THORAX W/CONTRAST John England MD [address] [place] [address] [place] [address] Ct Imaging [place] [address] Referral IDStatusReasonStfort deposit DateExpiration DateVisits RequestedVisits [id number] Auto-Generated Referral /[id number] / ProceduresReferred By ContactReferred To ContactCT IMAGING Diagnoses Lung nodules Procedures CT CHEST W IVCON DIAGNOSTIC COMPUTED TOMOGRAPHY THORAX W/CONTRAST John England MD [address] [place] [address] Ct Imaging Referral IDStatusReasonStart DateExpiration DateVisits RequestedVisits [id number] Auto-Generated Referral [id number] / ProceduresReferred By ContactReferred To Contact Diagnoses Tongue cancer (HCC) Procedures CT SIM PLANNING RADIATION ONCOLOGY THER RAD SIMULAJ-AIDED FIELD SETTING COMPLEX Yordan Feliz MD [address] [place] [address] [place] [address] Referral IDStatusReasonStart DateExpiration DateVisits RequestedVisits [id number] Review PCP Requested Referral [id number] / ProceduresReferred By ContactReferred To ContactDentistry Diagnoses Tongue cancer (HCC) Procedures CONSULT TO DENTISTRY OFFICE/OUTPATIENT [facility] 60-74 MINUTES Travis Dave MD [address] [place] [address] [place] [address] Referral IDStatusReasonStart DateExpiration DateVisits RequestedVisits [id number] Review PCP Requested Referral [id number] / ProceduresReferred By ContactReferred To ContactOncology Diagnoses Head and neck cancer (HCC) Procedures CONSULT TO ONCOLOGY OFFICE/OUTPATIENT [facility] 60-74 MINUTES Yordan Feliz MD [address] [place] [address] [place] [address] Referral IDStatusReasonStart DateExpiration DateVisits RequestedVisits [id number] PCP Requested Referral [id number] / ProceduresReferred By ContactReferred To ContactMOLECULAR & FUNCTIONAL IMAGING Diagnoses Tongue cancer (HCC) Head and neck cancer (HCC) Procedures NM PET/CT SKULL-THIGH INITIAL PET IMAGING CT ATTENUATION SKULL BASE MID-THIGH Yordan Feliz MD [address] [place] [address] [place] [address] Molecular & Functional Imaging [address] [place] [address] Referral IDStatusReasonStart DateExpiration DateVisits RequestedVisits [id number] Review Auto-Generated Referral / Medications Administered Section [...] than 0.4 mg/mL. Protect from Light. New Bag/Syringe/Feezzd8409/03/2022 1:09 PM EST79.6 mg dexAMETHasone 10 mg/NS 50 mL (PYXIS) 10 mg ivpb (DECADRON) 10 mg, INTRAVENOUS, ONCE, 1 dose, On Sat09/03/22 at 1130, Refrigerate. New Bag/Syringe/Ewbbfh8209/03/2022 11:50 AM EST10 mg fosaprepitant 150 mg in NaCl 0.9% 250 mL (EMEND) 150 mg, INTRAVENOUS, Administer over 30 Minutes, ONCE, 1 dose, On Sat09/03/22 at 1130, Approximate Total Volume = 280 mL New Bag/Syringe/Xyegqi5209/03/2022 12:16 PM RYQ771 mg furosemide 40 mg injection (LASIX) 40 mg, INTRAVENOUS, ONCE, 1 dose, On Sat09/03/22 at 1130 Given09/03/2022 2:31 PM EST40 mg magnesium sulfate 2 g in NaCl 0.9% 1,000 mL INTRAVENOUS, at 1,054 mL/hr, Administer over 1 Hours, ONCE, 1 dose, On Sat09/03/22 at 1130, TV 1054ml New Bag/Syringe/Bfcxeg6309/03/2022 2:35 PM PQG9385 mL/hr NaCl 0.9% iv bolus 1,000 mL 1,000 mL, INTRAVENOUS, at 999 mL/hr, Administer over 1 Hours, ONCE, 1 dose, On Sat09/03/22 at 1130 New Bag/Syringe/Vrhgpn2709/03/2022 11:41 AM EST1,000 mL999 mL/hr ondansetron (PF) [...] than 0.4 mg/mL. Protect from Light. New Bag/Syringe/Njeqaq0709/10/2022 2:12 PM EST79.6 mg dexAMETHasone 10 mg/NS 50 mL (PYXIS) 10 mg ivpb (DECADRON) 10 mg, INTRAVENOUS, ONCE, 1 dose, On Sat09/10/22 at 1300, Refrigerate. New Bag/Syringe/Frkkvi3209/10/2022 12:56 PM EST10 mg fosaprepitant 150 mg in NaCl 0.9% 250 mL (EMEND) 150 mg, INTRAVENOUS, Administer over 30 Minutes, ONCE, 1 dose, On Sat09/10/22 at 1300, Approximate Total Volume = 280 mL New Bag/Syringe/Bkernl0509/10/2022 1:20 PM DBT789 mg furosemide 40 mg injection (LASIX) 40 [...] and Hematology/Oncology 4) Eclampsia or Preeclampsia New Bag/Syringe/Vpnbki9909/10/2022 3:37 PM EST2 g50 mL/hr NaCl 0.9% 1,000 mL INTRAVENOUS, at 999 mL/hr, Administer over 1 Hours, ONCE, 1 dose, On Sat09/10/22 at 1400 New Bag/Syringe/Esretw6309/10/2022 3:34 PM ZTR306 mL/hr NaCl 0.9% iv bolus 1,000 mL 1,000 mL, INTRAVENOUS, at 999 mL/hr, Administer over 1 Hours, ONCE, 1 dose, On Sat09/10/22 at 1400 New Bag/Syringe/Xugmub5909/10/2022 12:38 PM EST1,000 mL999 mL/hr ondansetron (PF) [...] than 0.4 mg/mL. Protect from Light. New Bag/Syringe/Ygivkk9109/17/2022 1:05 PM EDT79.6 mg dexAMETHasone 10 mg/NS 50 mL (PYXIS) 10 mg ivpb (DECADRON) 10 mg, INTRAVENOUS, ONCE, 1 dose, On Sat09/17/22 at 1230, Refrigerate. New Bag/Syringe/Bkycxx7909/17/2022 12:08 PM EDT10 mg fosaprepitant 150 mg in NaCl 0.9% 250 mL (EMEND) 150 mg, INTRAVENOUS, Administer over 30 Minutes, ONCE, 1 dose, On Sat09/17/22 at 1230, Approximate Total Volume = 280 mL New Bag/Syringe/Qqylhk2109/17/2022 12:29 PM LCZ792 mg furosemide 40 mg injection (LASIX) 40 [...] and Hematology/Oncology 4) Eclampsia or Preeclampsia New Bag/Syringe/Tnzahg9609/17/2022 2:25 PM EDT2 g50 mL/hr NaCl 0.9% 1,000 mL INTRAVENOUS, at 999 mL/hr, Administer over 1 Hours, ONCE, 1 dose, On Sat09/17/22 at 1230 New Bag/Syringe/Kutzch0809/17/2022 2:26 PM JPY293 mL/hr NaCl 0.9% iv bolus 1,000 mL 1,000 mL, INTRAVENOUS, at 999 mL/hr, Administer over 1 Hours, ONCE, 1 dose, On Sat09/17/22 at 1230 New Bag/Syringe/Uwskjs4909/17/2022 11:20 AM EDT1,000 mL999 mL/hr ondansetron (PF) [...] than 0.4 mg/mL. Protect from Light. New Bag/Syringe/Ehpxzh8510/01/2022 1:16 PM EDT79.6 mg dexAMETHasone 10 mg/NS 50 mL (PYXIS) 10 mg ivpb (DECADRON) 10 mg, INTRAVENOUS, ONCE, 1 dose, On Sat10/01/22 at 1230, Refrigerate. New Bag/Syringe/Hkxltd9610/01/2022 12:16 PM EDT10 mg fosaprepitant 150 mg in NaCl 0.9% 250 mL (EMEND) 150 mg, INTRAVENOUS, Administer over 30 Minutes, ONCE, 1 dose, On Sat10/01/22 at 1230, Approximate Total Volume = 280 mL New Bag/Syringe/Cjxaob6110/01/2022 12:43 PM WVE515 mg furosemide 40 mg injection (LASIX) 40 [...] and Hematology/Oncology 4) Eclampsia or Preeclampsia New Bag/Syringe/Wdckdk1410/01/2022 2:40 PM EDT2 g50 mL/hr NaCl 0.9% 1,000 mL INTRAVENOUS, at 999 mL/hr, Administer over 1 Hours, ONCE, 1 dose, On Sat10/01/22 at 1230 New Bag/Syringe/Fkzuuy6910/01/2022 2:35 PM FSM919 mL/hr NaCl 0.9% iv bolus 1,000 mL 1,000 mL, INTRAVENOUS, at 999 mL/hr, Administer over 1 Hours, ONCE, 1 dose, On Sat10/01/22 at 1230 New Bag/Syringe/Jwkngw2810/01/2022 11:25 AM EDT1,000 mL999 mL/hr ondansetron (PF) [...] than 0.4 mg/mL. Protect from Light. New Bag/Syringe/Yixibk3810/08/2022 1:36 PM EDT79.6 mg dexAMETHasone 10 mg/NS 50 mL (PYXIS) 10 mg ivpb (DECADRON) 10 mg, INTRAVENOUS, ONCE, 1 dose, On Sat10/08/22 at 1130, Refrigerate. New Bag/Syringe/Zdmqmb6710/08/2022 1:13 PM EDT10 mg fosaprepitant 150 mg in NaCl 0.9% 250 mL (EMEND) 150 mg, INTRAVENOUS, Administer over 30 Minutes, ONCE, 1 dose, On Sat10/08/22 at 1130, Approximate Total Volume = 280 mL New Bag/Syringe/Nvmdbq2710/08/2022 12:38 PM RUK417 mg furosemide 40 mg injection (LASIX) 40 [...] and Hematology/Oncology 4) Eclampsia or Preeclampsia New Bag/Syringe/Vflksj2610/08/2022 3:13 PM EDT2 g50 mL/hr NaCl 0.9% 1,000 mL INTRAVENOUS, at 999 mL/hr, Administer over 1 Hours, ONCE, 1 dose, On Sat10/08/22 at 1230 New Bag/Syringe/Jhtgwn9110/08/2022 2:41 PM ODG984 mL/hr NaCl 0.9% iv bolus 1,000 mL 1,000 mL, INTRAVENOUS, at 999 mL/hr, Administer over 1 Hours, ONCE, 1 dose, On Sat10/08/22 at 1130 New Bag/Syringe/Qzjyis7410/08/2022 11:41 AM EDT1,000 mL999 mL/hr ondansetron (PF) 8 mg injection (ZOFRAN) 8 mg, INTRAVENOUS, ONCE, 1 dose, On Sat10/08/22 at 1130 Given04/09/2022 1:13 PM EDT8 mgMedication OrderMAR ActionAction DateDoseRateSite NaCl 0.9% 500 mL INTRAVENOUS, at 999 mL/hr, Administer over 0.5 Hours, ONCE, 1 dose, On Sat10/31/22 at 1600 New Bag/Syringe/Rjpwmo5110/31/2022 2:44 PM TDC604 mL/hr Chief Complaint and Reason for Visit Chief Complaint Plugged ears Chief Complaint Plugged ears Bug bite on R arm Chief Complaint Admit Date Unknown April 29, 2025 1 2:06pm Additional Source Comments Patient Care team informatio n (unrecognized section and content) Team MemberRelationshipSpecialtyStart DateEnd Date Mannie Nelson MD [address] [place] [address] PCP - [facility]11/16/11Team MemberRelationshipSpecialtyStart DateEnd Date Mannie Nelson MD [address] [place] [address] PCP - [facility]11/16/11Team MemberRelationshipSpecialtyStart DateEnd Date Mannie Nelson MD [address] [place] [id number] PCP - [facility]11/16/11Team MemberRelationshipSpecialtyStart DateEnd Date Mannie Nelson MD [address] [place] [address] PCP - [facility]11/16/11Te MemberRelationshipSpecialtyStart DateEnd Date Mannie Nelson MD [address] [place] [id number] [facility]/16/11 Dee Gil, RD [address] [place] [address] DR [place], [facility] Registered DietitianNutrition08/20/22Team MemberRelationshipSpecialtyStart Date End Date Mannie Nelson MD [address] [place] [address] PCP - [facility] Medicine11/16/11 Dee Gil, KARLOS [address] [place] [address] Registered DietitianNutrition08/20/22 John England MD [address] [place] [address] PhysicianHematology/Oncology08/21/22 Natalie Cadena, SYSTEM VALIDATION ENGINEER.[facility] [address] [place] [address] Nurse PractitionerHematology/Oncology08/21/22 Rafael Bob, [place] [address] [place] [address] Specialty Care CoordinatorHematology/Oncology08/21/22 Yordan Feliz MD [address] [place] [address] PhysicianRadiation Oncology08/21/22Team MemberRelationshipSpecialtyStart DateEnd Date Mannie Nelson MD [address] [place] [address] PCP - [facility] Medicine11/16/11 Dee Gil, KARLOS [address] [place] [address] Registered DietitianNutrition08/20/22 John England MD [address] [place] [address] PhysicianHematology/Oncology08/21/22 Natalie Cadena, SYSTEM VALIDATION ENGINEER.[employer] [address] [place] [address] Nurse PractitionerHematology/Oncology08/21/22 Rafael Bob, RN [address] [place] [address] Specialty Care CoordinatorHematology/Oncology08/21/22 Yordan Feliz MD [address] [place] [address] PhysicianRadiation Oncology08/21/22Team MemberRelationshipSpecialtyStart DateEnd Date Mnanie Nelson MD [address] [place] [address] PCP - Generalmily Medicine11/16/11 Dee Gil, KARLOS [address] [place] [address] Registered DietitianNutrition08/20/22 John England MD [address] [place] [address] PhysicianHematology/Oncology08/21/22 Natalie Cadena, SYSTEM VALIDATION ENGINEER.[employer] [address] [place] [address] Nurse PractitionerHematology/Oncology08/21/22 Rafael Bob, [place] [address] [place] [address] Specialty Care CoordinatorHematology/Oncology08/21/22 Yordan Feliz MD [address] [place] [address] PhysicianRadiation Oncology08/21/22Team MemberRelationshipSpecialtyStart DateEnd Date Mannie Nelson MD [address] [place] [address] PCP - GeneralFamily Medicine11/16/11 Dee Gil, RD [address] [place] [address] Registered DietitianNutrition08/20/22 John England MD [address] [place] [address] PhysicianHematology/Oncology08/21/22 Natalie Cadena, SYSTEM VALIDATION ENGINEER.[employer] [address] [place] [address] Nurse PractitionerHematology/Oncology08/21/22 Rafael Bob, [place] [address] [place] [address] Specialty Care CoordinatorHematology/Oncology08/21/22 Yordan Feliz MD [address] [place] [address] PhysicianRadiation Oncology08/21/22Team MemberRelationshipSpecialtyStart DateEnd Date Mannie Nelson MD [address] [place] [address] PCP - GeneralFamily Medicine11/16/11 Dee Gil, RD [address] [place] [address] Registered DietitianNutrition08/20/22 John England MD [address] [place] [address] PhysicianHematology/Oncology08/21/22 Natalie Cadena, SYSTEM VALIDATION ENGINEER.[employer] [address] [place] [address] Nurse PractitionerHematology/Oncology08/21/22 Rafael Bob, [place] [address] [place] [address] Specialty Care CoordinatorHematology/Oncology08/21/22 Yordan Feliz MD [address] [place] [address] PhysicianRadiation Oncology08/21/22Team MemberRelationshipSpecialtyStart DateEnd Date Mannie Nelson MD [address] [place] [address] PCP - [facility]11/16/11 Dee Gil, KARLOS [address] [place] [address] Registered DietitianNutrition08/20/22 John England MD [address] [place] [address] PhysicianHematology/Oncology08/21/22 Natalie Cadena, SYSTEM VALIDATION ENGINEER.[employer] [address] [place] [address] Nurse PractitionerHematology/Oncology08/21/22 Rafael Bob, [place] [address] [place] [address] Specialty Care CoordinatorHematology/Oncology08/21/22 Yordan Feliz MD [address] [place] [address] PhysicianRadiation Oncology08/21/22Team MemberRelationshipSpecialtyStart DateEnd Date Mannie Nelson MD [address] [place] [address] PCP - [facility] Medicine11/16/11Team MemberRelationshipSpecialtyStart DateEnd Date Mannie Nelson MD [address] [place] [address] PCP - [facility] Medicine11/16/11 Dee Gil, RD [address] [place] [address] Registered DietitianNutrition08/20/22 John England MD [address] [place] [address] PhysicianHematology/Oncology08/21/22 Natalie Cadena, SYSTEM VALIDATION ENGINEER.[employer] [address] [place] [address] Nurse PractitionerHematology/Oncology08/21/22 Rafael Bob, [place] [address] [place] [address] Specialty Care CoordinatorHematology/Oncology08/21/22 Yordan Feliz MD [address] [place] [address] PhysicianRadiation Oncology08/21/22Team MemberRelationshipSpecialtyStart DateEnd Date Mannie Nelson MD [address] [place] [address] PCP - [facility] Medicine11/16/11 Dee Gil, KARLOS [address] [place] [address] Registered DietitianNutrition08/20/22 John England MD [address] [place] [address] PhysicianHematology/Oncology08/21/22 Natalie Cadena, SYSTEM VALIDATION ENGINEER.[employer] [address] [place] [address] Nurse PractitionerHematology/Oncology08/21/22 Rafael Bob, [place] [address] [place] [address] Specialty Care CoordinatorHematology/Oncology08/21/22 Yordan Feliz MD [address] [place] [address] PhysicianRadiation Oncology08/21/22Team MemberRelationshipSpecialtyStart DateEnd Date Mannie Nelson MD [address] [place] [facility] [place] [address] PCP - Generalmily Medicine11/16/11 Dee Gil, KARLOS [address] [place] [address] Registered DietitianNutrition08/20/22 John England MD [address] [place] [address] PhysicianHematology/Oncology08/21/22 Natalie Cadena, SYSTEM VALIDATION ENGINEER.[employer]SEM[employer] [address] [place] [address] Nurse PractitionerHematology/Oncology08/21/22 Rafael Bob, [place] [address] [place] [address] Specialty Care CoordinatorHematology/Oncology08/21/22 Yordan Feliz MD [address] [place] [address] PhysicianRadiation Oncology08/21/22Team MemberRelationshipSpecialtyStart DateEnd Date Mannie Nelson MD [address] [place] [address] PCP - GeneralFamily Medicine11/16/11 Dee Gil, KARLOS [address] [place] [address] Registered DietitianNutrition08/20/22 John England MD [address] [place] [address] PhysicianHematology/Oncology08/21/22 Natalie Cadena, SYSTEM VALIDATION ENGINEER.[employer] [address] [place] [address] Nurse PractitionerHematology/Oncology08/21/22 Rafael Bob, [place] [address] [place] [address] Specialty Care CoordinatorHematology/Oncology08/21/22 Yordan Feliz MD [address] [place] [address] PhysicianRadiation Oncology08/21/22Team MemberRelationshipSpecialtyStart DateEnd Date Mannie Nelson MD [address] [place] [address] PCP - GeneralFamily Medicine11/16/11 Dee Gil, KARLOS [address] [place] [address] Registered DietitianNutrition08/20/22 John England MD [address] [place] [address] PhysicianHematology/Oncology08/21/22 Natalie Cadena, SYSTEM VALIDATION ENGINEER.[employer] [address] [place] [address] Nurse PractitionerHematology/Oncology08/21/22 Rafael Bob, [place] [address] [place] [address] Specialty Care CoordinatorHematology/Oncology08/21/22 Yordan Feliz MD [address] [place] [address] PhysicianRadiation Oncology08/21/22 Marysol Purvis, [facility] Social Worker09/07/22Team MemberRelationshipSpecialtyStart DateEnd Date Mannie Nelson MD [address] [place] [address] PCP - [facility]11/16/11 Dee Gil, KARLOS [address] [place] [address] Registered DietitianNutrition08/20/22 John England MD [address] [place] [address] PhysicianHematology/Oncology08/21/22 Natalie Cadena, SYSTEM VALIDATION ENGINEER.[employer] [address] [place] [address] Nurse PractitionerHematology/Oncology08/21/22 Rafael Bob, [place] [address] [place] [address] Specialty Care CoordinatorHematology/Oncology08/21/22 Yordan Feliz MD [address] [place] [address] PhysicianRadiation Oncology08/21/22 Marysol Purvis, HYPERION DEVELOPER Social Worker09/07/22Team MemberRelationshipSpecialtyStart DateEnd Date Mannie Nelson MD [address] [place] [address] PCP - GeneralFamily Medicine11/16/11 Dee Gil, RD [address] [place] [address] Registered DietitianNutrition08/20/22 John England MD [address] [place] [address] PhysicianHematology/Oncology08/21/22 Natalie Cadena, SYSTEM VALIDATION ENGINEER.[employer] [address] [place] [address] Nurse PractitionerHematology/Oncology08/21/22 Rafael Bob, [place] [address] [place] [address] Specialty Care CoordinatorHematology/Oncology08/21/22 Yordan Feliz MD [address] [place] [address] PhysicianRadiation Oncology08/21/22 Marysol Purvis LSW Social Worker09/07/22Team MemberRelationshipSpecialtyStart DateEnd Date Mannie Nelson MD [address] [place] [address] PCP - GeneralFamily Medicine11/16/11 Dee Gil, KARLOS [address] [place] [address] Registered DietitianNutrition08/20/22 John England MD [address] [place] [address] PhysicianHematology/Oncology08/21/22 Natalie Cadena, SYSTEM VALIDATION ENGINEER.[employer] [address] [place] [address] Nurse PractitionerHematology/Oncology08/21/22 Rafael Bob, [place] [address] [place] [address] Specialty Care CoordinatorHematology/Oncology08/21/22 Yordan Feliz MD [address] [place] [address] PhysicianRadiation Oncology08/21/22 Marysol Purvis, [facility] Social Worker09/07/22Team MemberRelationshipSpecialtyStart DateEnd Date Mannie Nelson MD [address] [place] [address] PCP - [facility]11/16/11 Dee Gil, KARLOS [address] [place] [address] Registered DietitianNutrition08/20/22 John England MD [address] [place] [address] PhysicianHematology/Oncology08/21/22 Natalie Cadena, SYSTEM VALIDATION ENGINEER.[employer] [address] [place] [address] Nurse PractitionerHematology/Oncology08/21/22 Rafael Bob, [place] [address] [place] [address] Specialty Care CoordinatorHematology/Oncology08/21/22 Yordan Feliz MD [address] [place] [address] PhysicianRadiation Oncology08/21/22 Marysol Purvis, [facility] Social Worker09/07/22Team MemberRelationshipSpecialtyStart DateEnd Date Mannie Nelson MD [address] [place] [address] PCP - GeneralFamily Medicine11/16/11 Dee Gil, RD [address] [place] [address] Registered DietitianNutrition08/20/22 John England MD [address] [place] [address] PhysicianHematology/Oncology08/21/22 Natalie Cadena, SYSTEM VALIDATION ENGINEER.[employer] [address] [place] [address] Nurse PractitionerHematology/Oncology08/21/22 Rafael Bob, [place] [address] [place] [address] Specialty Care CoordinatorHematology/Oncology08/21/22 Yordan Feliz MD [address] [place] [address] PhysicianRadiation Oncology08/21/22 Marysol Purvis LSW Social Worker09/07/22Team MemberRelationshipSpecialtyStart DateEnd Date Mannie Nelson MD [address] [place] [address] PCP - GeneralFamily Medicine11/16/11 Dee Gil, KARLOS [address] [place] [address] Registered DietitianNutrition08/20/22 John England MD [address] [place] [address] PhysicianHematology/Oncology08/21/22 Natalie Cadena, SYSTEM VALIDATION ENGINEER.[employer]SEM[employer] [address] [place] [address] Nurse PractitionerHematology/Oncology08/21/22 Rafael Bob, [place] [address] [place] [address] Specialty Care CoordinatorHematology/Oncology08/21/22 Yordan Feliz MD [address] [place] [address] PhysicianRadiation Oncology08/21/22 Marysol Purvis, [facility] Social Worker09/07/22Team MemberRelationshipSpecialtyStart DateEnd Date Mannie Nelson MD [address] [place] [facility] [place] [address] PCP - [facility]11/16/11 Dee Gil, KARLOS [address] [place] [address] Registered DietitianNutrition08/20/22 John England MD [address] [place] [address] PhysicianHematology/Oncology08/21/22 Natalie Cadena, SYSTEM VALIDATION ENGINEER.[employer]EN[employer]SEM[employer]ER [employer] [address] [place] [address] Nurse PractitionerHematology/Oncology08/21/22 Rafael Bob, [place] [address] [place] [address] Specialty Care CoordinatorHematology/Oncology08/21/22 Yordan Feliz MD [address] [place] [address] PhysicianRadiation Oncology08/21/22 Marysol Purvis, HYPERION DEVELOPER Social Worker09/07/22Team MemberRelationshipSpecialtyStart DateEnd Date Mannie Nelson MD [address] [place] [address] PCP - GeneralFamily Medicine11/16/11 Dee Gil, RD [address] [place] [address] Registered DietitianNutrition08/20/22 John England MD [address] [place] [address] PhysicianHematology/Oncology08/21/22 Natalie Cadena, SYSTEM VALIDATION ENGINEER.BENCH ASSEMBLER BATTERY [address] [place] [address] Nurse PractitionerHematology/Oncology08/21/22 Rafael Bob, [place] [address] [place] [address] Specialty Care CoordinatorHematology/Oncology08/21/22 Yordan Feliz MD [address] [place] [address] PhysicianRadiation Oncology08/21/22 Marysol Purvis LSW Social Worker09/07/22Team MemberRelationshipSpecialtyStart DateEnd Date Mannie Nelson MD [address] [place] [address] PCP - GeneralFamily Medicine11/16/11 Dee Gil, KARLOS [address] [place] [address] Registered DietitianNutrition08/20/22 John England MD [address] [place] [address] PhysicianHematology/Oncology08/21/22 Natalie Cadena, SYSTEM VALIDATION ENGINEER.BENCH ASSEMBLER BATTERY [address] [place] [address] Nurse PractitionerHematology/Oncology08/21/22 Rafael Bob, RN [address] [place] [address] Specialty Care CoordinatorHematology/Oncology08/21/22 Yordan Feliz MD [address] [place] [address] PhysicianRadiation Oncology08/21/22 Marysol Purvis, HYPERION DEVELOPER Social Worker09/07/22Team MemberRelationshipSpecialtyStart DateEnd Date Mannie Nelson MD [address] [place] [facility] [place] [address] PCP - [facility] Medicine11/16/11 Dee Gil, KARLOS [address] [place] [address] Registered DietitianNutrition08/20/22 John England MD [address] [place] [address] PhysicianHematology/Oncology08/21/22 Natalie Cadena, YENY.BENCH ASSEMBLER BATTERY [address] [place] [address] Nurse PractitionerHematology/Oncology08/21/22 Rafael Bob, RN [address] [place] [address] Specialty Care CoordinatorHematology/Oncology08/21/22 Yordan Feliz MD [address] [place] [address] PhysicianRadiation Oncology08/21/22 Marysol Purvis, HYPERION DEVELOPER Social Worker09/07/22Team MemberRelationshipSpecialtyStart DateEnd Date Mannie Nelson MD [address] [place] [facility] [address] PCP - GeneralFamily Medicine11/16/11 Dee Gil, RD [address] [place] [address] Registered DietitianNutrition08/20/22 John England MD [address] [place] [address] PhysicianHematology/Oncology08/21/22 Natalie Cadena, SYSTEM VALIDATION ENGINEER.BENCH ASSEMBLER BATTERY [address] [place] [address] Nurse PractitionerHematology/Oncology08/21/22 Rafael Bob, [place] [address] [place] [address] Specialty Care CoordinatorHematology/Oncology08/21/22 Yordan Feliz MD [address] [place] [address] PhysicianRadiation Oncology08/21/22 Marysol Purvis LSW Social Worker09/07/22Team MemberRelationshipSpecialtyStart DateEnd Date Mannie Nelson MD [address] [place] [facility] [address] PCP - GeneralShenandoah [facility] Centerly Medicine11/16/11 Dee Gil, RD [address] [place] [address] Registered DietitianNutrition08/20/22 John England MD [address] [place] [address] PhysicianHematology/Oncology08/21/22 Natalie Cadena, SYSTEM VALIDATION ENGINEER.BENCH ASSEMBLER BATTERY [address] [place] [address] Nurse PractitionerHematology/Oncology08/21/22 Rafael Bob, [place] [address] [place] [address] Specialty Care CoordinatorHematology/Oncology08/21/22 Yordan Feliz MD [address] [place] [address] PhysicianRadiation Oncology08/21/22 Marysol Purvis, HYPERION DEVELOPER Social Worker09/07/22Team MemberRelationshipSpecialtyStart DateEnd Date Mannie Nelson MD [address] [place] [facility] [place] [address] PCP - GeneralFamily Medicine11/16/11 Dee Gil, KARLOS [address] [place] [address] Registered DietitianNutrition08/20/22 John England MD [address] [place] [address] PhysicianHematology/Oncology08/21/22 Natalie Cadena, SYSTEM VALIDATION ENGINEER.BENCH ASSEMBLER BATTERY [address] [place] [address] Nurse PractitionerHematology/Oncology08/21/22 Rafael Bob, [place] [address] [place] [address] Specialty Care CoordinatorHematology/Oncology08/21/22 Yordan Feliz MD [address] [place] [address] PhysicianRadiation Oncology08/21/22 Marysol Purvis, HYPERION DEVELOPER Social Worker09/07/22Team MemberRelationshipSpecialtyStart DateEnd Date Mannie Nelson MD [address] [place] [address] PCP - GeneralFamily Medicine11/16/11 Dee Gil, RD [address] [place] [address] Registered DietitianNutrition08/20/22 John England MD [address] [place] [address] PhysicianHematology/Oncology08/21/22 Natalie Cadena, SYSTEM VALIDATION ENGINEER.BENCH ASSEMBLER BATTERY [address] [place] [address] Nurse PractitionerHematology/Oncology08/21/22 Rafael Bob, [place] [address] [place] [address] Specialty Care CoordinatorHematology/Oncology08/21/22 Yordan Feliz MD [address] [place] [address] PhysicianRadiation Oncology08/21/22 Marysol Purvis LSW Social Worker09/07/22Team MemberRelationshipSpecialtyStart DateEnd Date Mannie Nelson MD [address] [place] [address] PCP - GeneralFamily Medicine11/16/11 Dee Gil, RD [address] [place] [address] Registered DietitianNutrition08/20/22 John England MD [address] [place] [address] PhysicianHematology/Oncology08/21/22 Natalie Cadena, SYSTEM VALIDATION ENGINEER.BENCH ASSEMBLER BATTERY [address] [place], [place] [address] Nurse PractitionerHematology/Oncology08/21/22 Rafael Bob, RN [address] [place] [address] Specialty Care CoordinatorHematology/Oncology08/21/22 Yordan Feliz MD [address] [place] [address] [place] [address] PhysicianRadiation Oncology08/21/22 Marysol Purvis LSW Social Worker09/07/22Team MemberRelationshipSpecialtyStart DateEnd Date Mannie Nelson MD [address] [place] [address] PCP - GeneralFamily Medicine11/16/11 Dee Gil, KARLOS [address] [place] [address] Registered DietitianNutrition08/20/22 John England MD [address] [place] [address] PhysicianHematology/Oncology08/21/22 Natalie Cadena, SYSTEM VALIDATION ENGINEER.[facility] [address] [place] [address] Nurse PractitionerHematology/Oncology08/21/22 Rafael Bob, RN [address] [place] [address] Specialty Care CoordinatorHematology/Oncology08/21/22 Yordan Feliz MD [address] [place] [address] PhysicianRadiation Oncology08/21/22 Marysol Purvis LSW Social Worker09/07/22Team MemberRelationshipSpecialtyStart DateEnd Date Mannie Nelson MD [address] [place] [address] PCP - GeneralFamily Medicine11/16/11 Dee Gil, RD [address] [place] [address] Registered DietitianNutrition08/20/22 John England MD [address] [place] [address] PhysicianHematology/Oncology08/21/22 Natalie Cadena, SYSTEM VALIDATION ENGINEER.BENCH ASSEMBLER BATTERY [address] [place] [address] Nurse PractitionerHematology/Oncology08/21/22 Rafael Bob, [place] [address] [place] [address] Specialty Care CoordinatorHematology/Oncology08/21/22 Yordan Feliz MD [address] [place] [address] PhysicianRadiation Oncology08/21/22 Marysol Purvis LSW Social Worker09/07/22Team MemberRelationshipSpecialtyStart DateEnd Date Mannie Nelson MD [address] [place] [address] PCP - Generalmily Medicine11/16/11 Dee Gil, KARLOS [address] [place] [address] Registered DietitianNutrition08/20/22 John England MD [address] [place] [address] PhysicianHematology/Oncology08/21/22 Natalie Cadena, SYSTEM VALIDATION ENGINEER.BENCH ASSEMBLER BATTERY [address] [place] [address] Nurse PractitionerHematology/Oncology08/21/22 Rafael Bob, RN [address] [place] [address] Specialty Care CoordinatorHematology/Oncology08/21/22 Yordan Feliz MD [address] [place] [address] PhysicianRadiation Oncology08/21/22 Marysol Purvis, ISH Social Worker09/07/22Team MemberRelationshipSpecialtyStart DateEnd Date Mannie Nelson MD [address] [place] [address] PCP - GeneralSaint [facility] Medicine11/16/11 Dee Gil, RD [address] [place] [address] Registered DietitianNutrition08/20/22 John England MD [address] [place] [address] PhysicianHematology/Oncology08/21/22 Natalie Cadena APRN.BENCH ASSEMBLER BATTERY [address] [place] [address] Nurse PractitionerHematology/Oncology08/21/22 Rafael Bob, [place] [address] [place] [address] Specialty Care CoordinatorHematology/Oncology08/21/22 Yordan Feliz MD [address] [place] [address] PhysicianRadiation Oncology08/21/22 Marysol Purvis LSW Social Worker09/07/22Team MemberRelationshipSpecialtyStart DateEnd Date Mannie Nelson MD [address] [place] [address] PCP - Generalmily Medicine11/16/11 Dee Tirado, RD [address] [place] [address] Registered DietitianNutrition08/20/22 John England MD [address] [place] [address] PhysicianHematology/Oncology08/21/22 Natalie Cadena, SYSTEM VALIDATION ENGINEER.BENCH ASSEMBLER BATTERY [address] [place] [address] Nurse PractitionerHematology/Oncology08/21/22 Rafael Bob, [place] [address] [place] [address] Specialty Care CoordinatorHematology/Oncology08/21/22 Yordan Feliz MD [address] [place] [address] PhysicianRadiation Oncology08/21/22 Marysol Purvis LSW Social Worker09/07/22Team MemberRelationshipSpecialtyStart DateEnd Date Mannie Nelson MD [address] [place] [address] PCP - GeneralShenandoah Medical Centerly Medicine11/16/[address] [place] [address] Registered DietitianNutrition08/20/22 John England MD [address] [place] [address] PhysicianHematology/Oncology08/21/22 Natalie Cadena, SYSTEM VALIDATION ENGINEER.BENCH ASSEMBLER BATTERY [address] [place] [address] Nurse PractitionerHematology/Oncology08/21/22 Rafael Bob, RN [address] [place] [address] Specialty Care CoordinatorHematology/Oncology08/21/22 Yordan Feliz MD [address] [place] [address] PhysicianRadiation Oncology08/21/22 Marysol Purvis, ISH Social Worker09/07/22Team MemberRelationshipSpecialtyStart DateEnd Date Mannie Nelson MD [address] [place] [address] PCP - GeneralFamily Medicine11/16/11 Dee Tirado, RD [address] [place] [address] Registered DietitianNutrition08/20/22 John England MD [address] [place] [address] PhysicianHematology/Oncology08/21/22 Natalie Cadena, SYSTEM VALIDATION ENGINEER.[facility] [address] [place] [address] Nurse PractitionerHematology/Oncology08/21/22 Rafael Bob, [place] [address] [place] [address] Specialty Care CoordinatorHematology/Oncology08/21/22 Yordan Feliz MD [address] [place] [address] PhysicianRadiation Oncology08/21/22 Marysol Purvis, ISH Social Worker09/07/22Team MemberRelationshipSpecialtyStart DateEnd Date Shaikh Drake MD [address] [place] [address] PCP - GeneralPrimary Care02/06/[address] [place] [address] Registered DietitianNutrition08/20/22 John England MD [address] [place] [address] PhysicianHematology/Oncology08/21/22 Natalie Cadena APRN.BENCH ASSEMBLER BATTERY [address] [place] [address] Nurse PractitionerHematology/Oncology08/21/22 Rafael Bob, [place] [address] [place] [address] Specialty Care CoordinatorHematology/Oncology08/21/22 Yordan Feliz MD [address] [place] [address] PhysicianRadiation Oncology08/21/22 Marysol Purvis LSW Social Worker09/07/22Team MemberRelationshipSpecialtyStart DateEnd Date Shaikh Drake MD [address] [place] [address] PCP - GeneralPrimary Care02/06/[address] [place] [address] Registered DietitianNutrition08/20/22 John England MD [address] [place] [address] PhysicianHematology/Oncology08/21/22 Natalie Cadena APRN.BENCH ASSEMBLER BATTERY [address] [place] [address] Nurse PractitionerHematology/Oncology08/21/22 Rafael Bob, [place] [address] [place] [address] Specialty Care CoordinatorHematology/Oncology08/21/22 Yordan Feliz MD [address] [place] [address] PhysicianRadiation Oncology08/21/22 Marysol Purvis LSW Social Worker09/07/22Team MemberRelationshipSpecialtyStart DateEnd Date Shaikh Drake MD [address] [place] [address] PCP - GeneralPrimary Care02/06/[address] [place] [address] Registered DietitianNutrition08/20/22 John England MD [address] [place] [address] [place] [address] PhysicianHematology/Oncology08/21/22 Natalie Cadena APRN.BENCH ASSEMBLER BATTERY [address] [place] [address] Nurse PractitionerHematology/Oncology08/21/22 Rafael Bob RN [address] [place] [address] Specialty Care CoordinatorHematology/Oncology08/21/22 Yordan Feliz MD [address] [place] [address] PhysicianRadiation Oncology08/21/22 Marysol Purvis, HYPERION DEVELOPER Social Worker09/07/22Team MemberRelationshipSpecialtyStart DateEnd Date Shaikh Drake MD [address] [place] [address] PCP - GeneralPrimary Care02/06/[address] [place] [address] [place] [address] Registered DietitianNutrition08/20/22 John England MD [address] [place] [address] [place] [address] PhysicianHematology/Oncology08/21/22 Natalie Cadena APRN.BENCH ASSEMBLER BATTERY [address] [place] [address] [place] [address] Nurse PractitionerHematology/Oncology08/21/22 Rafael Bob RN [address] [place] [address] Specialty Care CoordinatorHematology/Oncology08/21/22 Yordan Feliz MD [address] [place] [address] PhysicianRadiation Oncology08/21/22 Marysol Purvis, ISH Social Worker09/07/22Team MemberRelationshipSpecialtyStart DateEnd Date Shaikh Drake MD [address] [place] [address] PCP - GeneralPrimary Care02/06/[address] [place] [address] Registered DietitianNutrition08/20/22 John England MD [address] [place] [address] PhysicianHematology/Oncology08/21/22 Natalie Cadena APRN.BENCH ASSEMBLER BATTERY [address] [place] [address] Nurse PractitionerHematology/Oncology08/21/22 Rafael Bob, [place] [address] [place] [address] Specialty Care CoordinatorHematology/Oncology08/21/22 Yordan Feliz MD [address] [place] [address] PhysicianRadiation Oncology08/21/22 Marysol Purvis LSW Social Worker09/07/22Team MemberRelationshipSpecialtyStart DateEnd Date Shaikh Drake MD [address] [place] [address] PCP - GeneralPrimary Care02/06/[address] [place] [address] Registered DietitianNutrition08/20/22 John England MD [address] [place] [address] PhysicianHematology/Oncology08/21/22 Natalie Cadena APRN.BENCH ASSEMBLER BATTERY [address] [place] [address] Nurse PractitionerHematology/Oncology08/21/22 Rafael Bob, [place] [address] [place] [address] Specialty Care CoordinatorHematology/Oncology08/21/22 Yordan Feliz MD [address] [place] [address] PhysicianRadiation Oncology08/21/22 Marysol Purvis LSW Social Worker09/07/22Team MemberRelationshipSpecialtyStart DateEnd Date Shaikh Drake MD [address] [place] [address] PCP - GeneralPrimary Care02/06/[address] [place] [address] Registered DietitianNutrition08/20/22 John England MD [address] [place] [address] [place] [address] PhysicianHematology/Oncology08/21/22 Natalie Cadena APRN.BENCH ASSEMBLER BATTERY [address] [place] [address] Nurse PractitionerHematology/Oncology08/21/22 Rafael Bob RN [address] [place] [address] Specialty Care CoordinatorHematology/Oncology08/21/22 Yordan Feliz MD [address] [place] [address] [place] [address] PhysicianRadiation Oncology08/21/22 Marysol Purvis LSW Social Worker09/07/22 Team Status: Active Member Role Status Dates Odell Schmidt DO Primary Care Provider Active Team Status: Inactive Member Role Status Dates Michelle Singh APRN Attending Provider Active Start: January 14, 2024 End: January 13ennis Maryan Schmidt Care ProviderActiveStart: January 14, 2024 End: January 14, 2024Team MemberRelationshipSpecialtyStart DateEnd Date Shaikh Drake [facility] [place] [address] PCP - GeneralPrimary Care02/06/[address] [place] [address] [place] [address] Registered DietitianNutrition08/20/22 John England MD [address] [place] [address] [place] [address] PhysicianHematology/Oncology08/21/22 Natalie Cadena APRN.BENCH ASSEMBLER BATTERY [address] [place] [address] [place] [address] Nurse PractitionerHematology/Oncology08/21/22 Rafael Bob RN [address] [place] [address] Specialty Care CoordinatorHematology/Oncology08/21/22 Yordan Feliz MD [address] [place] [address] PhysicianRadiation Oncology08/21/22 Marysol Purvis, HYPERION DEVELOPER Social Worker09/07/22Team MemberRelationshipSpecialtyStart DateEnd Date Mannie Nelson MD [address] [place] [address] PCP - General[facility] Medicine Dee Tirado RD [address] [place] [address] Registered DietitianNutrition08/20/22 John England MD [address] [place] [address] [address] [place], [facility] PhysicianHematology/Oncology08/21/22 Natalie Cadena APRN.BENCH ASSEMBLER BATTERY [address] [place] [address] Nurse PractitionerHematology/Oncology08/21/22 Rafael Bob, [place] [address] [place] [address] Specialty Care CoordinatorHematology/Oncology08/21/22 Yordan Feliz MD [address] [place] [address] PhysicianRadiation Oncology08/21/22 Marysol Purvis, ISH Social Worker09/07/22Team MemberRelationshipSpecialtyStart DateEnd Date Mannie Nelson MD [address] [place] [facility] [place] [address] PCP - GeneralFamily Medicine Dee Tirado RD [address] [place], [facility] Registered DietitianNutrition08/20/22 John England MD [address] [place], [facility] PhysicianHematology/Oncology08/21/22 Natalie Cadena APRN.BENCH ASSEMBLER BATTERY [address] [facility] [place] [address] Nurse PractitionerHematology/Oncology08/21/22 Rafael Bob, [place] [address] [facility] [place] [address] Specialty Care CoordinatorHematology/Oncology08/21/22 Yordan Feliz MD [address] [facility] [place], [facility] PhysicianRadiation Oncology08/21/22Team MemberRelationshipSpecialtyStart DateEnd Date Mannie Nelson MD [address] [place] [id number] PCP - GeneralFamily Medicine Dee Tirado RD [address] [place] [address] Registered DietitianNutrition08/20/22 John England MD [address] [facility] [place] [address] PhysicianHematology/Oncology08/21/22 Natalie Cadena APRN.BENCH ASSEMBLER BATTERY [address] [place] [address] Nurse PractitionerHematology/Oncology08/21/22 Rafael Bob, [place] [address] [place] [address] Specialty Care CoordinatorHematology/Oncology08/21/22 Yordan Feliz MD [address] [place] [address] PhysicianRadiation Oncology08/21/22 Team Status: Inactive Member Role Status Dates Odell Schmidt DO Primary Care Provider Active Start: April 07, 2024 End: April 07Onofre Smallwood ProviderActiveStart: April 07, 2024 End: April 07, 2024Team MemberRelationshipSpecialtyStart DateEnd Date Unallocated, Quiana Thomas MD [address] [place] [address] PCP - GeneralFamily [id number]/7/24Team MemberRelationshipSpecialtyStart DateEnd Date Unallocated, Quiana Thomas MD [address] [place] [address] PCP - GeneralFamily [id number]/7/24Team MemberRelationshipSpecialtyStart DateEnd Date Unallocated, Quiana Thomas MD [address] [place] [address] PCP - GeneralFamily [id number]/7/24Team MemberRelationshipSpecialtyStart DateEnd Date Shaikh Drake MD [facility] [place] [address] PCP - GeneralPrimary Care02/06/[address] [place] [address] Registered DietitianNutrition08/20/22 John England MD [address] [place] [address] PhysicianHematology/Oncology08/21/22 Natalie Cadena, SYSTEM VALIDATION ENGINEER.BENCH ASSEMBLER BATTERY [address] [place] [address] Nurse PractitionerHematology/Oncology08/21/22 Rafael Bob, [place] [address] [place] [address] Specialty Care CoordinatorHematology/Oncology08/21/22 Yordan Feliz MD [address] [place] [address] PhysicianRadiation Oncology08/21/22 Marysol Purvis LSW Social Worker09/07/22Team MemberRelationshipSpecialtyStart DateEnd Date Unallocated, Quiana Thomas MD [address] [place] [address] PCP - GeneralFamily Bezzjtqf91/7/24Team MemberRelationshipSpecialtyStart DateEnd Date Unallocated, Quiana Thomas MD [address] [place] [address] PCP - GeneralFamily [id number]/7/24Team MemberRelationshipSpecialtyStart DateEnd Date Mason Johnson II, MD [address] [facility] [address] [place] [address] PCP - GeneralInternal Xvjvomee62/30/[address] [facility] [address] [place], [place] [address] Registered DietitianNutrition08/20/22 John England MD [address] [facility] [place] [address] PhysicianHematology/Oncology08/21/22 Natalie Cadena, SYSTEM VALIDATION ENGINEER.BENCH ASSEMBLER BATTERY [address] [facility] [place] [address] Nurse PractitionerHematology/Oncology08/21/22 Rafael Bob, [place] [address] [facility] [place] [address] Specialty Care CoordinatorHematology/Oncology08/21/22 Yordan Feliz MD [address] [facility] [place] [address] PhysicianRadiation Oncology08/21/22 Marysol Purvis LSW Social Worker09/07/22Team MemberRelationshipSpecialtyStart DateEnd Date Mason Johnson II, MD [address] [facility] [address] [place] [address] PCP - GeneralInternal Vjdxeprw20/30/[address] [facility] [place] [address] Registered DietitianNutrition08/20/22 John England MD [address] [facility] [place] [address] PhysicianHematology/Oncology08/21/22 Natalie Cadena, SYSTEM VALIDATION ENGINEER.BENCH ASSEMBLER BATTERY [address] [place] [address] [place] [address] Nurse PractitionerHematology/Oncology08/21/22 Rafael Bob, [place] [address] [place] [address] [place] [address] Specialty Care CoordinatorHematology/Oncology08/21/22 Yordan Feliz MD [address] [place] [address] [place] [address] PhysicianRadiation Oncology08/21/22 Marysol Purvis LSW Social Worker09/07/22Team MemberRelationshipSpecialtyStart DateEnd Date Unallocated, Noms MD Martha [address] [place] [address] PCP - GeneralFamily [id number]/7/24Team MemberRelationshipSpecialtyStart DateEnd Date Mason Johnson MD [address] [place] [address] PCP - GeneralInternal [id number]/11/24Team MemberRelationshipSpecialtyStart Date End Date Mason Johnson MD [address] [place] [address] PCP - GeneralInternal Zbgatggh73/11/24Team MemberRelationshipSpecialtyStart Date End Date Mason Johnson MD [address] [place] [address] PCP - GeneralInternal Dhzdtjkx49/11/24Team MemberRelationshipSpecialtyStart Date End Date Mason Johnson MD [address] [place] [address] PCP - GeneralInternal Lreicltj04/11/24Team MemberRelationshipSpecialtyStart Date End Date Shaikh Drake MD [address] [place] [address] PCP - GeneralInternal Medicine11/05/23am MemberRelationshipSpecialtyStart Date End Date Shaikh Drake MD [address] [place] [address] PCP - GeneralInternal Medicine11/05/23am MemberRelationshipSpecialtyStart Date End Date Mason Johnson MD [address] [address] [place] [address] [facility] - [facility] Tzsixsbe62/11/24Te MemberRelationshipSpecialtyStart Date End Date Shaikh Drake MD [address] [place] [address] P[facility] - [facility]11/05/23Team MemberRelationshipSpecialtyStart Date End Date Shaikh Drake MD [address] [place] [address] PCP - GeneralInternal Medicine11/05/23Team MemberRelationshipSpecialtyStart Date End Date Mason Johnson MD [address] [place] [address] PCP - GeneralInternal Nbbiyhbb58/11/24Team MemberRelationshipSpecialtyStart Date End Date Mason Johnson MD [address] [place] [address] [facility] - [facility] Jqwtdkhx24/11/24 Mason Johnson MD [address] [place] [address] PCP - Medical [facility]07/08/2511Te MemberRelationshipSpecialtyStart Date End Date Mason Johnson MD [address] [place] [address] PCP - [facility]05/18/24 Mason Johnson MD [address] [place] [address] PCP - Medical [facility]07/08/2511Te MemberRelationshipSpecialtyStart Date End Date Mason Johnson MD [address] [place] [address] PCP - [facility]05/18/24 Mason Johnson MD [address] [place] [address] PCP - Medical [facility]07/08/2511Te MemberRelationshipSpecialtyStart Date End Date Mason Johnson MD [address] [place] [address] PCP - [facility]05/18/24 Mason Johnson MD [address] [place] [address] PCP - Medical [facility]07/08/2511Team MemberRelationshipSpecialtyStart Date End Date Mason Johnson MD [address] [place] [address] PCP - [facility]05/18/24 Mason Johnson MD [address] [place] [address] PCP - Medical [facility]07/08/2511Team MemberRelationshipSpecialtyStart Date End Date Mason Johnson MD [address] [place] [address] PCP - [facility]05/18/24 Mason Johnson MD [address] [place] [address] [facility] Medical [facility]07/08/2511Team MemberRelationshipSpecialtyStart Date End Date Mason Johnson MD [address] [place] [address] PCP - [facility]05/18/24 Mason Johnson MD [address] [place] [address] [facility] Medical [facility]07/08/2511Team MemberRelationshipSpecialtyStart Date End Date Mason Johnson MD [address] [place] [address] PCP - [facility]05/18/24 Mason Johnson MD [address] [place] [address] PCP - [facility] [place]07/08/2511Team MemberRelationshipSpecialtyStart Date End Date Mason Johnson MD [address] [place] [address] PCP - GeneralInternal Lslcvbeo17/11/24 Mason Johnson MD [address] [place] [address] PCP - Medical [facility]07/08/2511Team MemberRelationshipSpecialtyStart Date End Date Mason Johnson MD [address] [place] [address] [facility] - [facility] Yniwvhbv03/11/24 Mason Johnson MD [address] [place] [address] PCP - Medical [facility]07/08/2511Team MemberRelationshipSpecialtyStart Date End Date Mason Johnson II, MD [address] [facility] [address] [place] [address] PCP - GeneralInternal Fdcsyntb01/30/[address] [place] [address] [place] [address] Registered DietitianNutrition08/20/22 John England MD [facility] [place] [address] PhysicianHematology/Oncology08/21/22 Natalie Cadena APRN.[employer] [facility] [place] [address] Nurse PractitionerHematology/Oncology08/21/22 Rafael Bob, [place] [address] [place] [address] Specialty Care CoordinatorHematology/Oncology08/21/22 Yordan Feliz MD [address] [place] [address] PhysicianRadiation Oncology08/21/22 Marysol Purvis, HYPERION DEVELOPER Social Worker09/07/22Team MemberRelationshipSpecialtyStart DateEnd Date Mason Johnson II, MD [address] [facility] [address] [place] [address] PCP - GeneralInternal Xsozesfm75/30/[address] [place] [address] [place] [address] Registered DietitianNutrition08/20/22 John England MD [address] [place] [address] [place] [address] PhysicianHematology/Oncology08/21/22 Natalie Cadena APRN.[employer] [address] [place] [address] [place] [address] Nurse PractitionerHematology/Oncology08/21/22 Rafael Bob, [place] [address] [place] [address] Specialty Care CoordinatorHematology/Oncology08/21/22 Yordan Feliz MD [address] [facility] [place] [address] PhysicianRadiation Oncology08/21/22 Marysol Purvis LSW Social Worker09/07/22Team MemberRelationshipSpecialtyStart DateEnd Date Mason Johnson MD [address] [place] [address] [facility] - [facility] Obhobktj43/11/24 Mason Johnson MD [address] [place] [address] PCP - [facility] [place]07/08/2511Team MemberRelationshipSpecialtyStart Date End Date Mason Johnson MD [address] [place] [address] [facility] Mason Johnson MD [address] [place] [address] PCP - Medical [facility]07/08/2511Team MemberRelationshipSpecialtyStart Date End Date Mason Johnson MD [address] [place] [address] [facility] - [facility] Bhssaxla72/11/24 Mason Johnson MD [address] [place] [address] PCP - [facility] [place]07/08/2511Team MemberRelationshipSpecialtyStart Date End Date Mason Johnson MD [address] [place] [address] [facility] - [facility] Pdmagzfl21/11/24 Mason Johnson MD [address] [place] [address] PCP - [facility] [place]07/08/2511Team MemberRelationshipSpecialtyStart Date End Date Mason Johnson MD [address] [place] [address] PCP - GeneralInternal Rbzphrvl43/11/24 Mason Johnson MD [address] [place] [address] PCP - Medical [facility]07/08/2511Team MemberRelationshipSpecialtyStart Date End Date Mason Johnson MD [address] [place] [address] [facility] Mason Johnson MD [address] [place] [address] PCP - Medical [facility]07/08/2511Team MemberRelationshipSpecialtyStart Date End Date Mason Johnson MD [address] [place] [address] [facility] - [facility] Uknnusau35/11/24 Mason Johnson MD [address] [place] [address] PCP - [facility] [place]07/08/2511Team MemberRelationshipSpecialtyStart Date End Date Mason Johnson MD [address] [place] [address] [facility] Mason Johnson MD [address] [email or web address] [address] [place] [address] PCP - [facility] [place]07/08/2511Team MemberRelationshipSpecialtyStart Date End Date aMson Johnson MD [address] [facility] [[email or web address] [address] [place] [address] PCP - GeneralInternal Uuxbzphn62/11/24 Mason Johnson MD [address] [place] [address] PCP - [facility] [place]07/08/2511Team MemberRelationshipSpecialtyStart Date End Date aMson Johnson MD [address] [facility] [[email or web address] [address] [place] [address] PCP - GeneralInternal Gqswhxli21/11/24 Mason Johnson MD [address] [facility] [[email or web address] [address] [place] [address] PCP - Medical [facility]07/08/2511 Team Status: Inactive Member Role/Relationship Status Dates Mechelle Boyer Jr, DO Attending Provider Active Start: April 29, 2025 End: April 29, 2025Team MemberRelationshipSpecialtyStart DateEnd Date Shaikh Drake MD PCP - GeneralInternal Medicine Shaikh Drake MD PCP - GeneralInternal Medicine11/04/2409 Unallocated, Teresas MD [address] [place] [address] [facility] - [facility]04/13/2411 Mason Johnson MD [address] [place] [address] [facility] - [facility] Trrhifup61/11/24 Mason Johnson MD [address] [place] [address] PCP - [facility] [place]07/08/2511Team MemberRelationshipSpecialtyStart Date End Date Unallocated, Quiana Thomas MD [address] [place] [address] PCP - [facility]04/13/2411 Mason Johnson MD [address] [facility] [[email or web address] [address] [place] [address] PCP - [facility]05/18/24 Mason Johnson MD [address] [facility] [[email or web address] [address] [place] [address] PCP - Medical [facility]07/08/2511Team MemberRelationshipSpecialtyStart Date End Date Unallocated, Quiana Thomas MD [facility] [place] [address] PCP - [facility]04/13/2411 Mason Johnson MD [address] [facility] [[email or web address] [address] [place] [address] PCP - [facility]05/18/24 Mason Johnson MD [address] [facility] [[email or web address] [address] [place] [address] PCP - [facility] [place]07/08/2511 (unrecognized sect ion and content) No Status Records FoundNo Status Records FoundNo Status Records FoundNo Status Records FoundNo Status Records FoundNo Status Records Found INFORMATION SOURCE (unrecogn ized section and content) DATE CREATED AUTHOR 07/31/2022 [facility] DATE CREATED AUTHOR AUTHOR'S ORGANIZ ATION 08/04/2022 [facility] DATE CREATED AUTHOR AUTHOR'S ORGANIZ ATION 03/28/2025 [facility] DATE CREATED AUTHOR AUTHOR'S ORGANIZ ATION 04/30/2025 [facility] DATE CREATED AUTHOR AUTHOR'S ORGANIZ ATION 05/02/2025 [facility] DATE CREATED AUTHOR AUTHOR'S ORGANIZ ATION 05/02/2025 [facility] Source Comments (unrecognize d section and content) In the event this informatio n is protected by the Federal Confidentiality of Alcohol and Drug Abuse Patient Records regulations: The Federal rules restrict any use of the information to criminally investigate or prosecute any alcohol or drug abuse patient.[facility]In the event this information is protected by the Federal Confidentiality of Alcohol and Drug Abuse Patient Records regulations: The Federal rules restrict any use of the information to criminally investigate or prosecute any alcohol or drug abuse patient.[facility] WestIn the event this information is protected by the Federal Confidentiality of Alcohol and Drug Abuse Patient Records regulations: The Federal rules restrict any use of the information to criminally investigate or prosecute any alcohol or drug abuse patient.[facility] WestIn the event this information is protected by the Federal Confidentiality of Alcohol and Drug Abuse Patient Records regulations: The Federal rules restrict any use of the information to criminally investigate or prosecute any alcohol or drug abuse patient.[facility]In the event this information is protected by the Federal Confidentiality of Alcohol and Drug Abuse Patient Records regulations: The Federal rules restrict any use of the information to criminally investigate or prosecute any alcohol or drug abuse patient.[facility]In the event this information is protected by the Federal Confidentiality of Alcohol and Drug Abuse Patient Records regulations: The Federal rules restrict any use of the information to criminally investigate or prosecute any alcohol or drug abuse patient.[facility] WestIn the event this information is protected by the Federal Confidentiality of Alcohol and Drug Abuse Patient Records regulations: The Federal rules restrict any use of the information to criminally investigate or prosecute any alcohol or drug abuse patient.[facility] WestIn the event this information is protected by the Federal Confidentiality of Alcohol and Drug Abuse Patient Records regulations: The Federal rules restrict any use of the information to criminally investigate or prosecute any alcohol or drug abuse patient.[facility] WestIn the event this information is protected by the Federal Confidentiality of Alcohol and Drug Abuse Patient Records regulations: The Federal rules restrict any use of the information to criminally investigate or prosecute any alcohol or drug abuse patient.[facility] WestIn the event this information is protected by the Federal Confidentiality of Alcohol and Drug Abuse Patient Records regulations: The Federal rules restrict any use of the information to criminally investigate or prosecute any alcohol or drug abuse patient.[facility] WestIn the event this information is protected by the Federal Confidentiality of Alcohol and Drug Abuse Patient Records regulations: The Federal rules restrict any use of the information to criminally investigate or prosecute any alcohol or drug abuse patient.[facility] WestIn the event this information is protected by the Federal Confidentiality of Alcohol and Drug Abuse Patient Records regulations: The Federal rules restrict any use of the information to criminally investigate or prosecute any alcohol or drug abuse patient.[facility] WestIn the event this information is protected by the Federal Confidentiality of Alcohol and Drug Abuse Patient Records regulations: The Federal rules restrict any use of the information to criminally investigate or prosecute any alcohol or drug abuse patient.[facility] WestIn the event this information is protected by the Federal Confidentiality of Alcohol and Drug Abuse Patient Records regulations: The Federal rules restrict any use of the information to criminally investigate or prosecute any alcohol or drug abuse patient.[facility] WestIn the event this information is protected by the Federal Confidentiality of Alcohol and Drug Abuse Patient Records regulations: The Federal rules restrict any use of the information to criminally investigate or prosecute any alcohol or drug abuse patient.[facility] WestIn the event this information is protected by the Federal Confidentiality of Alcohol and Drug Abuse Patient Records regulations: The Federal rules restrict any use of the information to criminally investigate or prosecute any alcohol or drug abuse patient.[facility] WestIn the event this information is protected by the Federal Confidentiality of Alcohol and Drug Abuse Patient Records regulations: The Federal rules restrict any use of the information to criminally investigate or prosecute any alcohol or drug abuse patient.[facility] WestIn the event this information is protected by the Federal Confidentiality of Alcohol and Drug Abuse Patient Records regulations: The Federal rules restrict any use of the information to criminally investigate or prosecute any alcohol or drug abuse patient.[facility] WestIn the event this information is protected by the Federal Confidentiality of Alcohol and Drug Abuse Patient Records regulations: The Federal rules restrict any use of the information to criminally investigate or prosecute any alcohol or drug abuse patient.[facility] WestIn the event this information is protected by the Federal Confidentiality of Alcohol and Drug Abuse Patient Records regulations: The Federal rules restrict any use of the information to criminally investigate or prosecute any alcohol or drug abuse patient.[facility] WestIn the event this information is protected by the Federal Confidentiality of Alcohol and Drug Abuse Patient Records regulations: The Federal rules restrict any use of the information to criminally investigate or prosecute any alcohol or drug abuse patient.[facility] WestIn the event this information is protected by the Federal Confidentiality of Alcohol and Drug Abuse Patient Records regulations: The Federal rules restrict any use of the information to criminally investigate or prosecute any alcohol or drug abuse patient.[facility] WestIn the event this information is protected by the Federal Confidentiality of Alcohol and Drug Abuse Patient Records regulations: The Federal rules restrict any use of the information to criminally investigate or prosecute any alcohol or drug abuse patient.[facility] WestIn the event this information is protected by the Federal Confidentiality of Alcohol and Drug Abuse Patient Records regulations: The Federal rules restrict any use of the information to criminally investigate or prosecute any alcohol or drug abuse patient.[facility] WestIn the event this information is protected by the Federal Confidentiality of Alcohol and Drug Abuse Patient Records regulations: The Federal rules restrict any use of the information to criminally investigate or prosecute any alcohol or drug abuse patient.[facility] WestIn the event this information is protected by the Federal Confidentiality of Alcohol and Drug Abuse Patient Records regulations: The Federal rules restrict any use of the information to criminally investigate or prosecute any alcohol or drug abuse patient.[facility] WestIn the event this information is protected by the Federal Confidentiality of Alcohol and Drug Abuse Patient Records regulations: The Federal rules restrict any use of the information to criminally investigate or prosecute any alcohol or drug abuse patient.[facility] WestIn the event this information is protected by the Federal Confidentiality of Alcohol and Drug Abuse Patient Records regulations: The Federal rules restrict any use of the information to criminally investigate or prosecute any alcohol or drug abuse patient.[facility] WestIn the event this information is protected by the Federal Confidentiality of Alcohol and Drug Abuse Patient Records regulations: The Federal rules restrict any use of the information to criminally investigate or prosecute any alcohol or drug abuse patient.[facility] WestIn the event this information is protected by the Federal Confidentiality of Alcohol and Drug Abuse Patient Records regulations: The Federal rules restrict any use of the information to criminally investigate or prosecute any alcohol or drug abuse patient.[facility] WestIn the event this information is protected by the Federal Confidentiality of Alcohol and Drug Abuse Patient Records regulations: The Federal rules restrict any use of the information to criminally investigate or prosecute any alcohol or drug abuse patient.[facility] WestIn the event this information is protected by the Federal Confidentiality of Alcohol and Drug Abuse Patient Records regulations: The Federal rules restrict any use of the information to criminally investigate or prosecute any alcohol or drug abuse patient.[facility] WestIn the event this information is protected by the Federal Confidentiality of Alcohol and Drug Abuse Patient Records regulations: The Federal rules restrict any use of the information to criminally investigate or prosecute any alcohol or drug abuse patient.[facility] WestIn the event this information is protected by the Federal Confidentiality of Alcohol and Drug Abuse Patient Records regulations: The Federal rules restrict any use of the information to criminally investigate or prosecute any alcohol or drug abuse patient.[facility] WestIn the event this information is protected by the Federal Confidentiality of Alcohol and Drug Abuse Patient Records regulations: The Federal rules restrict any use of the information to criminally investigate or prosecute any alcohol or drug abuse patient.[facility] WestIn the event this information is protected by the Federal Confidentiality of Alcohol and Drug Abuse Patient Records regulations: The Federal rules restrict any use of the information to criminally investigate or prosecute any alcohol or drug abuse patient.[facility] WestIn the event this information is protected by the Federal Confidentiality of Alcohol and Drug Abuse Patient Records regulations: The Federal rules restrict any use of the information to criminally investigate or prosecute any alcohol or drug abuse patient.[facility] WestIn the event this information is protected by the Federal Confidentiality of Alcohol and Drug Abuse Patient Records regulations: The Federal rules restrict any use of the information to criminally investigate or prosecute any alcohol or drug abuse patient.[facility] WestIn the event this information is protected by the Federal Confidentiality of Alcohol and Drug Abuse Patient Records regulations: The Federal rules restrict any use of the information to criminally investigate or prosecute any alcohol or drug abuse patient.[facility] WestIn the event this information is protected by the Federal Confidentiality of Alcohol and Drug Abuse Patient Records regulations: The Federal rules restrict any use of the information to criminally investigate or prosecute any alcohol or drug abuse patient.[facility] WestIn the event this information is protected by the Federal Confidentiality of Alcohol and Drug Abuse Patient Records regulations: The Federal rules restrict any use of the information to criminally investigate or prosecute any alcohol or drug abuse patient.[facility] WestIn the event this information is protected by the Federal Confidentiality of Alcohol and Drug Abuse Patient Records regulations: The Federal rules restrict any use of the information to criminally investigate or prosecute any alcohol or drug abuse patient.[facility] WestIn the event this information is protected by the Federal Confidentiality of Alcohol and Drug Abuse Patient Records regulations: The Federal rules restrict any use of the information to criminally investigate or prosecute any alcohol or drug abuse patient.[facility] WestIn the event this information is protected by the Federal Confidentiality of Alcohol and Drug Abuse Patient Records regulations: The Federal rules restrict any use of the information to criminally investigate or prosecute any alcohol or drug abuse patient.[facility] WestIn the event this information is protected by the Federal Confidentiality of Alcohol and Drug Abuse Patient Records regulations: The Federal rules restrict any use of the information to criminally investigate or prosecute any alcohol or drug abuse patient.[facility] WestIn the event this information is protected by the Federal Confidentiality of Alcohol and Drug Abuse Patient Records regulations: The Federal rules restrict any use of the information to criminally investigate or prosecute any alcohol or drug abuse patient.[facility] WestIn the event this information is protected by the Federal Confidentiality of Alcohol and Drug Abuse Patient Records regulations: The Federal rules restrict any use of the information to criminally investigate or prosecute any alcohol or drug abuse patient.[facility] WestIn the event this information is protected by the Federal Confidentiality of Alcohol and Drug Abuse Patient Records regulations: The Federal rules restrict any use of the information to criminally investigate or prosecute any alcohol or drug abuse patient.[facility] WestIn the event this information is protected by the Federal Confidentiality of Alcohol and Drug Abuse Patient Records regulations: The Federal rules restrict any use of the information to criminally investigate or prosecute any alcohol or drug abuse patient.[facility] WestIn the event this information is protected by the Federal Confidentiality of Alcohol and Drug Abuse Patient Records regulations: The Federal rules restrict any use of the information to criminally investigate or prosecute any alcohol or drug abuse patient.[facility] WestIn the event this information is protected by the Federal Confidentiality of Alcohol and Drug Abuse Patient Records regulations: The Federal rules restrict any use of the information to criminally investigate or prosecute any alcohol or drug abuse patient.[facility] WestIn the event this information is protected by the Federal Confidentiality of Alcohol and Drug Abuse Patient Records regulations: The Federal rules restrict any use of the information to criminally investigate or prosecute any alcohol or drug abuse patient.[facility] WestIn the event this information is protected by the Federal Confidentiality of Alcohol and Drug Abuse Patient Records regulations: The Federal rules restrict any use of the information to criminally investigate or prosecute any alcohol or drug abuse patient.[facility] WestIn the event this information is protected by the Federal Confidentiality of Alcohol and Drug Abuse Patient Records regulations: The Federal rules restrict any use of the information to criminally investigate or prosecute any alcohol or drug abuse patient.[facility] WestIn the event this information is protected by the Federal Confidentiality of Alcohol and Drug Abuse Patient Records regulations: The Federal rules restrict any use of the information to criminally investigate or prosecute any alcohol or drug abuse patient.[facility] WestIn the event this information is protected by the Federal Confidentiality of Alcohol and Drug Abuse Patient Records regulations: The Federal rules restrict any use of the information to criminally investigate or prosecute any alcohol or drug abuse patient.[facility] WestIn the event this information is protected by the Federal Confidentiality of Alcohol and Drug Abuse Patient Records regulations: The Federal rules restrict any use of the information to criminally investigate or prosecute any alcohol or drug abuse patient.[facility] WestIn the event this information is protected by the Federal Confidentiality of Alcohol and Drug Abuse Patient Records regulations: The Federal rules restrict any use of the information to criminally investigate or prosecute any alcohol or drug abuse patient.[facility] WestIn the event this information is protected by the Federal Confidentiality of Alcohol and Drug Abuse Patient Records regulations: The Federal rules restrict any use of the information to criminally investigate or prosecute any alcohol or drug abuse patient.[facility] WestIn the event this information is protected by the Federal Confidentiality of Alcohol and Drug Abuse Patient Records regulations: The Federal rules restrict any use of the information to criminally investigate or prosecute any alcohol or drug abuse patient.[facility] WestIn the event this information is protected by the Federal Confidentiality of Alcohol and Drug Abuse Patient Records regulations: The Federal rules restrict any use of the information to criminally investigate or prosecute any alcohol or drug abuse patient.[facility] WestIn the event this information is protected by the Federal Confidentiality of Alcohol and Drug Abuse Patient Records regulations: The Federal rules restrict any use of the information to criminally investigate or prosecute any alcohol or drug abuse patient.[facility] WestIn the event this information is protected by the Federal Confidentiality of Alcohol and Drug Abuse Patient Records regulations: The Federal rules restrict any use of the information to criminally investigate or prosecute any alcohol or drug abuse patient.[facility] Reason for Visit (unrecogniz ed section and content) ReasonCommentsSuspicious Skin LesionSpecialtyDiagnoses / ProceduresReferred By ContactReferred To ContactDermatology Diagnoses Actinic keratosis Procedures NE OFFICE/OUTPATIENT NEW HIGH MDM 60 MINUTES Mason Johnson MD [address] [facility] [[email or web address]] [address] [place] [address] Phone: tel: fax: Barry Stevens, [employer] [address] [place] [address] Phone: tel: fax: Referral IDStatusReasonStart DateExpiration DateVisits RequestedVisits [id number] Specialty Services Required /[id number] CTSpecialtyDiagnoses / Procedures Referred By ContactReferred To ContactMOLECULAR & FUNCTIONAL IMAGING Diagnoses Tongue cancer (HCC) Head and neck cancer (HCC) Procedures NM PET/CT SKULL-THIGH INITIAL PET IMAGING CT ATTENUATION SKULL BASE MID-THIGH Yordan Feliz MD [address] [place] [address] [place] [address] Molecular & Functional Imaging [address] [place] [address] Referral IDStatusReasonParro[place] DateExpiration DateVisits RequestedVisits [id number] Auto-Generated Referral [id number] EducationReasonCommentsConsultSpecialty Diagnoses / ProceduresReferred By ContactReferred To ContactRadiation Oncology / RADIATION ONCOLOGY Diagnoses Dr. 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 Images requested. Procedures NEW PATIENT RAD ONC Lana Serene Jessica [address] [place] [address] Yordan Feliz MD [address] [place] [address] [place] [address] Referral IDStatusReasonStfort deposit DateExpiration DateVisits RequestedVisits [id number] Request Financial Clearance Required - [employer] Payor [id number] TelephoneReasonCommentsCare CoordinationTreatment PlanningReasonCommentsDental Clearance - Radiation Therapy ReasonOnset DateCommentsSimulation Request Form08/23/2022ReasonCommentsCare CoordinationPt QuestionsReasonCommentsCare CoordinationPET ResultsReasonComments tongue cancerReasonCommentsRadiotherapy On-treatment VisitSpecialtyDiagnoses / ProceduresReferred By ContactReferred To Contact Diagnoses 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) John England MD [address] [place] [address] Sebastien Treat Jose [address] [place] [address] Referral IDStatusReasonParro[place] DateExpiration DateVisits RequestedVisits [id number]/14/20235/[id number] BzyisghdiagqN4T6 Post Treatment CallReasonCommentsSocial Work ServicesReason CommentsNutrition AssessmentReasonCommentscancer [...] 90 DAY RAD TX Yordan Feliz MD [address] [place] [address] [place] [address] Yordan Feliz MD [address] [place] [address] [place] [address] Referral IDStatusLadonnaR[facility] DateExpiration DateVisits RequestedVisits [id number]/23/202312/[id number] of the base of tongueReasonCommentsHead and Neck CancerReasonCommentsCancer of the base of tongue1 month follow upReasonCommentsCare CoordinationResultsReasonComments 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)ReasonCommentsRadiology CTSpecialtyDiagnoses / ProceduresReferred By ContactReferred To ContactCT IMAGING Diagnoses Lung nodules 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) Procedures CT CHEST W IVCON DIAGNOSTIC COMPUTED TOMOGRAPHY THORAX W/CONTRAST John England MD [address] [place] [address] [address] [place] [id number] [facility] [place] [address] Referral IDStatusReasonStart DateExpiration DateVisits RequestedVisits [id number] Auto-Generated Referral /[id number] / ProceduresReferred By ContactReferred To ContactCT IMAGING Diagnoses 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) Mass of right lung Procedures CT CHEST W IVCON DIAGNOSTIC COMPUTED TOMOGRAPHY THORAX W/CONTRAST John England MD [address] [place] [address] [address] [place] [id number] [facility] [place] [address] Referral IDStatusReasonStart DateExpiration DateVisits RequestedVisits [id number] Auto-Generated Referral [id number] / ProceduresReferred By ContactReferred To ContactCT IMAGING Diagnoses Lung nodules Procedures CT CHEST W IVCON DIAGNOSTIC COMPUTED TOMOGRAPHY THORAX W/CONTRAST John England MD [address] [place] [address] [address] [place], [facility] [facility] [place] [address] Referral IDStatusReasonStart DateExpiration DateVisits RequestedVisits [id number] Auto-Generated Referral /[id number] NMSpecialtyDiagnoses / Procedures Referred By ContactReferred To ContactMOLECULAR & FUNCTIONAL IMAGING Diagnoses 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) Procedures NM PET/CT SKULL-THIGH SUBSEQUENT PET IMAGING CT ATTENUATION SKULL BASE MID-THIGH Yordan Feliz MD [address] [place] [address] [place] [address] Molecular [facility] Functional Imaging [address] [place] [address] Referral IDStatusReasonStart DateExpiration DateVisits RequestedVisits [id number] Auto-Generated Referral /[id number] month check base of tongue.Specialty Diagnoses / ProceduresReferred By ContactReferred To ContactCT IMAGING Diagnoses 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 Procedures CT CHEST W IVCON DIAGNOSTIC COMPUTED TOMOGRAPHY THORAX W/CONTRAST John England MD [address] [place] [address] [place] [address] [place] [address] Referral IDStatusReasonStart DateExpiration DateVisits RequestedVisits [id number] Auto-Generated Referral [id number] CarePrevious pcp dr Rodriguez oncology twice yearly [...] month checkReasonCommentsHip PainResultsLeft hip mriURIReasonOnset DateComments hip THA04/19/20255746CavlcoFxwcwbnxWgdiha6 mo checkReasonCommentsFollow-upSpecialty Diagnoses / ProceduresReferred By ContactReferred To ContactOrthopaedic Surgery Diagnoses Pseudogout involving multiple joints Primary osteoarthritis of left hip Mason Johnson MD [address] [place] [address] Phone: tel: fax: Jr. Mechelle Boyer, [address] [place] [address] Phone: tel: fax: Referral IDStatusReasonStart DateExpiration DateVisits RequestedVisits [id number] Specialty Services Required [id number] presurgical instructions for ASA surgical clearance Goals [...] BE BASED ON THE PRIMARY CLINICAL RECORDS. [employer] provides no warranty or guarantee of the accuracy or completeness of information in this document.
--- NOTE | 2025-05-07 11:13 | ED.GENADUL1 ---
HPI HPI - General Adult General Chief complaint: Arrhythmia/Palpitations Stated complaint: ABNORMAL EKG Time Seen by Provider: 05/07/25 10:09 Source: patient Mode of arrival: walk-in Limitations: no limitations History of Present Illness HPI narrative: 79 years old male with history of left hip arthritis who is planned for preop hip replacement workup is coming to the ER after he was supposed to get the stress test as medical clearance and apparently was found to be in atrial flutter. The patient himself denies any symptoms Patient mentioned that he have a history of coronary disease the last time he was evaluated by his cardiology within 2003 Related Data Home Medications ?Medication ?Instructions ?Recorded ?Confirmed fenofibrate micronized 134 mg 134 mg PO DAILY 04/09/24 05/07/25 capsule metoprolol succinate 25 mg 25 mg PO DAILY 04/09/24 05/07/25 tablet,extended release 24 hr aspirin 81 mg tablet 81 mg PO DAILY 05/07/25 05/07/25 metformin 500 mg tablet 500 mg PO DAILY 05/07/25 05/07/25 omeprazole 20 mg capsule,delayed 20 mg PO DAILY 05/07/25 05/07/25 release tizanidine 4 mg tablet 4 mg PO Q12H 05/07/25 05/07/25 Previous Rx's ?Medication ?Instructions ?Recorded apixaban 5 mg tablet (Eliquis) 5 mg PO BID #30 tabs 05/07/25 Allergies Allergy/AdvReac Type Severity Reaction Status Date / Time No Known Drug Allergies Allergy Verified 05/07/25 10:03 Opioid HPI Opioid Management Most Recent Opioid Data: Last Pain Scale 0 04/21/23, 10:50 Review of Systems ROS Status of ROS 10 or more systems reviewed and unremarkable except as noted in history and below PFSH PFSH Social History Smoking status: Never smoker Little interest or pleasure in doing things: not at all Feeling down, depressed, or hopeless: not at all Exam Narrative Exam Narrative: Nurses notes and vital signs reviewed and patient is not hypoxic. General: Well-appearing and in no apparent distress. Skin: Warm, dry, no pallor noted. No rash. Head: Normocephalic, atraumatic. Neck: Supple, non-tender. Cardiovascular: Irregular rate and Rhythm without murmur, gallop or rub. Respiratory: No accessory muscle use or respiratory distress. Lungs are clear to auscultation, no wheezing, rales or rhonchi Chest Wall: no tenderness Back: No midline thoracic or lumbar vertebral tenderness. No CVA tenderness Musculoskeletal: normal ROM, no calf or popliteal tenderness, no lower extremity edema/swelling GI: Abdomen is soft, non-distended. Normal bowel sounds. No masses appreciated. No tenderness to palpation. No rebound, guarding, or rigidity noted. Neurological: A&O x4. No cranial nerve dysfunction observed. No truncal ataxia. Moves all extremities. Sensation intact. Psychiatric: Cooperative and interactive. Normal mood and affect. Constitutional Vital Signs, click to edit/add: Last Vital Signs Temp 97.4 F L 05/07/25 10:03 Pulse 70 05/07/25 11:40 Resp 9 L 05/07/25 11:40 BP 148/105 H 05/07/25 11:30 Pulse Ox 99 05/07/25 11:30 O2 Del Method Room Air 05/07/25 10:03 Course Vital Signs Vital signs: Vital Signs Pulse Rate 76 05/07/25 10:01 Respiratory Rate 9 L 05/07/25 10:01 Temperature 97.4 F L 05/07/25 10:03 Pulse Rate 70 05/07/25 11:40 Respiratory Rate 9 L 05/07/25 11:40 Blood Pressure 148/105 H 05/07/25 11:30 Pulse Oximetry 99 05/07/25 11:30 Oxygen Delivery Method Room Air 05/07/25 10:03 Medical Decision Making [facility] Narrative Medical decision making narrative: The patient EKG showing atrial flutter with a heart rate of [address] elevation or depression CBC chemistry as well as troponin and chest x-ray showed no acute pathology Patient case discussed with Dr. Benson and cardiology service and he is plan to evaluate him as outpatient next week The patient was started on Eliquis meanwhile 5 mg twice daily The patient to follow-up with the primary care within 2 to 3 days and to come back to the ER in case of any worsening of the current symptoms or any new symptoms or concerns Lab Data Labs: Lab Results 05/07/25 Range/Units 10:10 WBC 5.2 (4.0-11.0) 10^3/uL RBC 4.22 L (4.70-6.10) 10^6/uL Hgb 12.7 L (14.0-18.0) g/dL Hct 38.3 L (42.0-54.0) % MCV 90.8 (80.0-94.0) fL MCH 30.1 (25.9-34.0) pg MCHC 33.2 (29.9-35.2) g/dL RDW 14.6 (11.0-15.0) % Plt Count 249 (150-450) 10^3/uL MPV 9.2 L (9.5-13.5) fL Neut % (Auto) 77.9 H (43.0-75.0) % Lymph % (Auto) 10.5 L (20.5-60.0) % Brantley % (Auto) 8.3 (1.7-12.0) % Eos % (Auto) 1.9 (0.9-7.0) % Baso % (Auto) 0.8 (0.2-2.0) % Neut # (Auto) 4.0 (1.4-6.5) 10^3/uL Lymph # (Auto) 0.5 L (1.2-3.8) 10^3/uL Brantley # (Auto) 0.4 (0.3-0.8) 10^3/uL Eos # (Auto) 0.1 (0.0-0.7) 10^3/uL Baso # (Auto) 0.0 (0.0-0.1) 10^3/uL Abs Immat Gran (auto) 0.03 (0.00-0.03) 10^3/uL Imm/Tot Granulo (auto) 0.6 H (0.0-0.5) % Sodium 140 (136-145) mmol/L Potassium 4.3 (3.5-5.1) mmol/L Chloride 103 (98-107) mmol/L Carbon Dioxide 27.9 (21.0-32.0) mmol/L Anion Gap 13.4 BUN 20.0 H (7.0-18.0) mg/dL Creatinine 1.22 (0.70-1.30) mg/dL Est GFR ( Amer) >60 (>=60 mL/min/1.73m^2) Est GFR (Non-Af Amer) 57 L (>=60 mL/min/1.73m^2) BUN/Creatinine Ratio 16.4 Glucose 167 H (74-106) mg/dL Calcium 9.1 (8.5-10.1) mg/dL Total Bilirubin 0.6 (0.2-1.0) mg/dL AST 19 (15-37) U/L ALT 24 (16-63) U/L Alkaline Phosphatase 65 (46-116) U/L Troponin I High Sens 10.9 (4.0-76.1) pg/mL Total Protein 7.1 (6.4-8.2) g/dL Albumin 3.5 (3.4-5.0) g/dL Globulin 3.6 g/dL Albumin/Globulin Ratio 1.0 Discharge Plan Discharge Chief Complaint: Arrhythmia/Palpitations Clinical Impression: Atrial flutter Patient Disposition: Home, Self-Care Time of Disposition Decision: 11:45 Condition: Good Mode of Transportation: Private Vehicle Prescriptions / Home Meds: New Eliquis 5 mg tablet 5 mg PO BID Qty: 30 0RF Discontinued celecoxib 200 mg capsule 200 mg PO Q12H No Action fenofibrate micronized 134 mg capsule 134 mg PO DAILY metoprolol succinate 25 mg tablet extended release 24 hr 25 mg PO DAILY metformin 500 mg tablet 500 mg PO DAILY tizanidine 4 mg tablet 4 mg PO Q12H omeprazole 20 mg capsule,delayed release(DR/EC) 20 mg PO DAILY aspirin 81 mg tablet 81 mg PO DAILY Print Language: Burkinan Instructions: Atrial Flutter (ED) Referrals: BARBARA ARCE MD [Physician, Cardiology] - As soon as possible Referral Note: please call and make an appointment as they are closed today and could not make an appointment for you ORA STARKS [Primary Care Provider, Internal Medicine] - 1 week Discharge Date/Time: 05/07/25 12:04
[2025-05-07] MEDS: APIXABAN 5 MG TABLET PO (11:56)
== END 2025-05-07 12:04 | disposition home or self-care (01) ==
PROVIDERS: Emergency Provider Emergency Medicine; PCP Internal Medicine
DX: I48.92 Unspecified atrial flutter (principal); M16.12 Unilateral primary osteoarthritis, left hip; I25.10 Atherosclerotic heart disease of native coronary artery without angina pectoris; Z95.5 Presence of coronary angioplasty implant and graft
CPT/HCPCS: 36415; 71045; 78452; 80053; 84484; 85025; 93005; 99285; A9500

== ENCOUNTER 2025-05-19 06:50 | Outpatient (OUT) | payer MEDICARE, SELFPAY ==
--- OUTSIDE RECORDS SUMMARY | 2017-01-02 04:00 | XMS_ITS | Continuity of Care Document ---
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 Role Phone Paige WELCH, [place] Unavailable Unavailable Allergies, Adverse Reactions, Alerts Substance Reaction Status Criticality No Known Allergies Active No Inform ation Medications Medication Instructions Dosage Effective Dates (start - stop) Status Comments fenofibrate micronized 134 mg capsule take 1 capsule by oral route every day with food 134 MG - Active atenolol 25 mg tablet take 1 tablet by o ral route every day 25 MG - Active Aspir-81 81 mg tablet,delayed release take 1 tablet by oral route every day - Active Procedures Procedure Date Apr New Patient, Moderate Advance Directives Directive Yes / No Effective Date File Name No Information Encounters Encounter Description Practice Location Reason(s) For Visit Diagnoses Date Provider Providers Copied on Encounter New Patient, Moderate [facility] , [address] [place], [address], [place] tel:[phone] [facility] referred by Dr. Slaughter for a macular hole (chief complaint) floaters (chief complaint) Essential (primary) hypertensionAge-re lated nuclear cataract, bilateralVitreous degeneration, bilateralMacular pseudohole of left eye 7 Paige Do[address], [address], [place], [place], [id number] , [place]. tel:[phone] Family History Family Member Type Diagnosis Age At Onset No Information Immunizations Vaccine Date Status Comments Influenza, seasonal, injectable, 3 yrs or older (36 mos+) FluLaval administered Note: Invalid docume nted admin date was . ; Source: Public Agency Payers Payer name Insurance type Covered libertarian ID Authorchidia tiverna(s) No Information Social History Type Description Quantity Date Captured Comments Alcohol Use Details Caffeine Use Details 1 cup per day Tobacco Use Status Current non-smoker 15 Smoking Status Never smoker Non-Smoking Tobacco Use Details : No Details Available : No Details Available [id number] SexMale Vital Signs Date / Time: Height Weight BMI Pulse Rate Blood Pressure Temperature Respiratory Rate Body Surface Area Head Circumference Head Circ. Percentile Wt./Ezequiel. Percentile BMI percentile Pulse Ox Inhaled Ox 9:08 AM 147/81 mm[Hg] Chief Complaint And Reason For Visit From encounter dated '01/02/2017 09:00'. referred by Dr. Slaughter for a macular hole (chief complaint). Description: This 71 year old male referred by Dr. Slaughter for a possible macular hole in the left eye. floaters (chief complaint). Description: The patient reports floaters in both eyes for years. The onset was gradual. Vision is not affected. The symptom is intermittent. The condition is mild. In addition, the condition is associated with daily activity and chores. The patient denies flashes. Reason For Referral Reason For Referral No Information History Of Present Illness Encounter Date Complaint History Of Prese nt Illness floaters The patient repo rts floaters in both eyes for years. The onset was gradual. Vision is not affected. The symptom is intermittent. The condition is mild. In addition, the condition is associated with daily activity and chores. The patient denies flashes. referred by Dr. Herrera in for a macular hole This 71 year old male referred by Dr. Slaughter for a possible macular hole in the left eye. Functional Status Date Functional Assessmen t No Information Instructions Date Instruction Additional Infor mation Return PRN. Related to Macul ar pseudohole of left eye Impression/Plan - No t affecting vision. Related to Age-related nuclear cataract, bilateral Impression/Plan - Th e importance of blood pressure control was discussed today. The patient was advised of both ocular and systemic benefits of blood pressure control as well as regular follow up compliance with the PCP. Related to Essential (primary) hypertension Impression/Plan - Po sterior vitreous detachment was noted on examination today and explained to the patient. There is no evidence of a retinal hole, tear, break, or detachment. Signs and symptoms of retinal detachment and tears were discussed. Patient instructed to report new symptoms. Appropriate follow up with primary eye foster care worker was recommended. Related to Vitreous degeneration, bilateral Impression/Plan - LE FT EYE: I discussed the finding of a lamellar macular hole with the patient. The change centrally is mild. The risk of progression is very low. The patient will return to his referring physician for his routine eye care and to monitor for progression. He was advised to report vision changes immediately. Return to [facility] as needed. Related to Macular pseudohole of left eye Follow up - Return PRN. Related to Macular pseudohole of left eye Assessments Type Assessment Date assessment Essential (primary) hypertension assessment Age-related nuclear cataract, bi lateral assessment Vitreous degeneration, bilateral assessment Macular pseudohole of left eye J impression Macular pseudohole o f left eye: H35.342. OS. Status: Asymptomatic, mild, new impression Vitreous degeneratio n, bilateral: H43.813. OU. Status: mild, chronic impression Age-related nuclear cataract, bilateral: H25.13. OU. Status: mild, chronic impression Essential (primary) hypertension : I10. Status: Chronic Patient Care Teams Name Effective Dates (start - stop) Status Members No Information
--- OUTSIDE RECORDS SUMMARY | 2025-05-06 09:00 | XMS_ITS | Encounter Summary ---
Author Organization [facility] Address [address] [place] [id number] Care Team Providers Care Superintendent Recreation Name Role Phone Dee Tirado KARLOS Unavailable John Valladares MD Unavailable [phone] Natalie Cadena APRN.SHIPPING/RECEIVING MANAGER Unavailable [phone] Yordan Randolph MD Unavailable [phone] Marysol Purvis ROOF SERVICE TECHNICIAN Unavailable Unavailable Alex OLIVAS MD, Mason Regan Primary Care Provider [phone] Source Comments In the event this information is protected by the Federal Confidentiality of Alcohol and Drug AbusePatient Records regulations: The Federal rules restrict any use of the information to criminally investigate or prosecute any alcohol or drug abuse patient.[facility] Reason for Referral * MRI/CT (Routine) - AuthorizedSpecialtyDiagnoses / ProceduresReferred By ContactReferred To ContactCT IMAGING Diagnoses 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) Procedures CT CHEST W IVCON DIAGNOSTIC COMPUTED TOMOGRAPHY THORAX W/CONTRAST John Valladares MD [address] [place] [address] [place] [address] Phone: tel: fax: [place] [address] Referral IDStatusReasonStart DateExpiration DateVisits RequestedVisits [id number] Auto-Generated Referral * MRI/CT (Routine) - AuthorizedSpecialtyDiagnoses / ProceduresReferred By ContactReferred To ContactCT IMAGING Diagnoses 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) Procedures CT NECK SOFT TISSUE W IVCON CT SOFT TISSUE NECK W/CONTRAST MATERIAL John Valladares MD [address] [place] [address] [place] [address] Phone: tel: fax: [place] [phone] Referral IDStatusReasonStart DateExpiration DateVisits RequestedVisits [id number] Auto-Generated Referral Reason for Visit * ReasonCommentsCancer of the base of tongue6 month follow up Encounter Details DateTypeDepartmentCare Team (Latest Contact Info)Saimypvsrcs88/30/2025 10:00 AM EDTVisit (SP) Office Hematology/Oncology [address] [place] [address] [place] [address] John Valladares MD [address] [place] [address] [place] [address] 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); Lung nodules; Stage 3 chronic kidney disease, unspecified whether stage 3a or 3b CKD (HCC); Primary osteoarthritis of hip, unspecified laterality Social History Tobacco UseTypesPacks/DayYears UsedDateSmoking Tobacco: NeverPassive Smoke Exposure: NeverSmokeless Tobacco: NeverAlcohol UseStandard Drinks/WeekComments Yes0 (1 standard drink = 0.6 oz pure alcohol)daily 3 beersPHQ-2AnswerDate RecordedPHQ-2 dssor2445Area Deprivation IndexAnswerDate RecordedNational Score (1-100), lower number is lower uohj713711/07/2022State Score (1-10), lower number is lower rmyy6693Data from: https://www.neighborhoodatlas.[facility]/. Last address used for [address] [place] [address]11/07/2022Sex and Gender InformationValueDate Recorded Sex Assigned at BirthNot on fileLegal RaqShhy94/02/2012 10:15 AM ESTGender IdentityNot on fileSexual OrientationNot on filedocumented as of this encounter Last Filed Vital Signs Vital SignReadingTime TakenCommentsBlood Xjdysxxz782/5305/06/2025 10:08 AM EDT Sksgb029005/06/2025 10:08 AM CZPVcnoaemcheh78.6 ??C (97.8 ??F)05/06/2025 10:08 AM EDTRespiratory Gvfw1662 10:08 AM EDTOxygen Bmtubrsbel95%05/06/2025 10:08 AM EDTInhaled Oxygen Concentration--Wrgimh19.8 kg (200 lb 2.8 oz)05/06/2025 10:08 AM ZXDIxwzeu734.9 cm (5' 5.71 )05/06/2025 10:08 AM EDTBody Mass Index32.6 05/06/2025 10:08 AM EDTdocumented in this encounter Functional Status * Are you deaf or do you have serious difficulty hearing?AnswerDate of IausjhsrmfCgywpeCf84/23/2014 11:20 AM Jasmyn Anthony * Are you blind or do you have serious difficulty seeing, even when wearing glasses?AnswerDate of TfnffpzbbeQfjeuuZs00/23/2014 11:20 AM Jasmyn Anthony * Do you have serious difficulty walking or climbing stairs?AnswerDate of KssyfbxzpkLpdtznTd18/23/2014 11:20 AM Jasmyn Anthony * Do you have difficulty dressing or bathing?AnswerDate of AssessmentAuthorNo 04/29/2014 11:20 AM Jasmyn Anthony * Because of a physical, mental, or emotional condition, do you have difficulty doing errands alone such as visiting a doctor's office or shopping?AnswerDate of GnlmmayzxrRduvywIa40/23/2014 11:20 AM Jasmyn Anthony documented as of this encounter Mental Status * Because of a physical, mental, or emotional condition, do you have serious difficulty concentrating, remembering, or making decisions?AnswerEntry Date UtdifwMs30/23/2014 11:20 AM Jasmyn Anthony documented in this encounter Patient Instructions * Patient Instructions* John Valladares MD - 05/06/2025 10:[address] Neck and Chest in 12 months Labs same day RTC 1 week after to review We discussed your ongoing cancer surveillance: - You are doing well, and we have not found anything concerning in the past two years. - We agreed to change your follow-up visits from every 6 months to once a year, as you prefer. Yournext visit will be in April. - If you notice any unusual symptoms or changes, please contact me right away. We discussed your ENT follow-up: - It is important that you continue your follow-up visits with ENT, as they may notice changes earlier than imaging studies. We discussed your upcoming hip replacement: - You are scheduled to see a grocery supervisor before your hip operation, as required for surgical clearance. - Please continue with your preoperative appointments as planned. Follow-Up: - Your next oncology follow-up visit will be in July. - Continue your regular ENT follow-up. - Attend your upcoming cardiology appointment before your hip surgery. documented in this encounter Progress Notes * John Valladares MD - 05/06/2025 10:00 AM EDT Images from the original note were not included. NAME: Manish Root NO.: [id number] DATE OF SERVICE: May 06, 2025 (Jacquelyn) Some elements in this clinic note that are critical to medical decision making have been carefully reviewed and included from a prior clinic note dated: November 04, 2024 (Jacquelyn). Referring Provider: Dr. Татьяна Randolph Additional Clinicians involved in Manish Root's care: Leela Schwartz DIAGNOSIS: Base of Tongue squamous cell ca. CASE SUMMARY / ASSESSMENT: 79 year old man with base [...] lesion and now only ground glass opacity. SUMMARIZED PLAN: CT Neck and Chest in 12 months Labs same day RTC 1 week after to review AI ASSISTED A/P: 1. 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 - Transition to annual follow-up visits. - Advised patient to report any new or unusual symptoms immediately. - Continue ENT follow-up as scheduled. 2. Lung nodules (R91.8) No evidence of malignancy or progression in the past 2 years. - Continue annual surveillance. 3. Stage 3 chronic kidney disease, unspecified whether stage 3a or 3b CKD (HCC) (N18.30) Patient has a history of contrast exposure during imaging studies. - Continue to monitor renal function. 4. Primary osteoarthritis of hip, unspecified laterality (M16.10) Patient requires hip replacement surgery; procedure delayed due to pending cardiology risk assessment. - Awaiting cardiology risk assessment prior to proceeding with hip replacement surgery. CASE HISTORY: Reverse Chronological Order 04/29/2025 - CT Neck & Chest: Neck: * Stable posttreatment changes as detailed. No significant other enhancing lesion suggest recurrent or residual disease. * No enlarged lymph node in the neck, by CT size criteria Chest: * Stable CT of the chest. No findings to suggest new intrathoracic metastatic disease. * No evidence of bulky intrathoracic lymphadenopathy. 10/28/2024 - CT Neck & Chest: Neck: [...] Ca Stage 3 - 2/5 LN + [place] regimen on protocol HPI: Updated Visit, May 06, 2025: Jahaira is with him. The patient is an 79-year-old male with a history of cancer in remission, presenting for routine follow-up. The patient has been in remission for 2 years, with no evidence of disease recurrence. He has been undergoing routine surveillance every 6 months. He is currently being evaluated for a hip replacement, but the procedure was delayed because his primary care physician would not sign off on stopping aspirin for 10 days prior to surgery. He has notseen a grocery supervisor in 15 years, but has an appointment scheduled for evaluation prior to surgery. Updated Visit, November 04, 2024: Manish is doing well but his Jahaira is still dealing with an infection of left shoulder. He'snow doing all the cooking. He is having left hip pain c/w arthritis. Reviewed scans and they are negative for disease. [place] as long as his is better. He's originally from [place]. Updated Visit, May 06, 2024: Manish returns with his Jahaira (she has a pinched nerve that has locked up her shoulder) His scans are negative. He's doing very well. Updated Visit, October 23, 2023: Manish returns today with Jahaira. We discussed he recent CT scans - both appear stable. He has been continuing follow up with Dr. Schwartz, so we can space out his visits [...] PERFORMANCE STATUS: 0 PHYSICAL EXAMINATION: Vitals: BP 108/53 Pulse 68 Temp (Src) 97.8 (Temporal) Resp 16 Ht 5' 5.709 (1.67m) Wt 200lb 2.8 oz (90.8kg) SpO2 98% BMI 32.60 kg/(m^2). Body surface area is 2.05 meters squared. Exam limited to gross visualization where appropriate. Gen.: This is an age-appropriate patient in no acute distress. Head: Appears atraumatic with no visible lesions. Eyes: Pupils equally round and reactive to light, extraocular muscles are intact. Neck: Supple. Mouth: Masked. Respiratory: Appears to be respiring comfortably. Neurologic: Nonfocal to gross visualization. Alert and oriented ??3. Psychiatric: No evidence of inappropriate anxiety or depression. Skin: Visible areas of skin without rash, lesions, wounds or petechiae. ALLERGIES: ALLERGIES Allergen Reactions Ekdxffk-Tpd-Ktv Red* GI Upset MEDICATIONS: celecoxib (CELEBREX) 200 mg capsule Take 200 mg by mouth once daily. tiZANidine (ZANAFLEX) 4 mg tablet Take 4 mg by mouth. traMADol (ULTRAM) 50 mg tablet Take 50 mg by mouth as needed. cholecalciferol, Vitamin D3, (VITAMIN D3) 1,250 mcg [...] de-accessaccording to line specific nursing protocol in theCT contrast administration guidelines link. iv contrast (will [...] link. LABORATORY VALUES: WBC (k/uL) Date Value 04/29/2025 5.88 RBC (m/uL) Date Value 04/29/2025 4.50 Hemoglobin (g/dL) Date Value 04/29/2025 13.2 Hematocrit (%) Date Value 04/29/2025 40.3 MCV (fL) Date Value 04/29/2025 89.6 MCH (pg) Date Value 04/29/2025 29.3 MCHC (g/dL) Date Value 04/29/2025 32.8 RDW-CV (%) Date Value 04/29/2025 14.5 Platelet Count (k/uL) Date Value 04/29/2025 255 MPV (fL) Date Value 04/29/2025 9.8 Glucose (mg/dL) Date Value 04/29/2025 198 (H) BUN (mg/dL) Date Value 04/29/2025 17 Creatinine (mg/dL) Date Value 04/29/2025 1.07 Sodium (mmol/L) Date Value 04/29/2025 142 Potassium (mmol/L) Date Value 04/29/2025 4.5 Chloride (mmol/L) Date Value 04/29/2025 103 CO2 (mmol/L) Date Value 04/29/2025 26 Protein, Total (g/dL) Date Value 04/29/2025 7.1 Albumin (g/dL) Date Value 04/29/2025 4.2 Calcium, Total (mg/dL) Date Value 04/29/2025 10.2 Alkaline Phosphatase (U/L) Date Value 04/29/2025 95 Bilirubin, Total (mg/dL) Date Value 04/29/2025 0.5 AST (U/L) Date Value 04/29/2025 15 ALT (U/L) Date Value 04/29/2025 17 Cholesterol, Total (mg/dL) Date Value 02/06/2023 168 Triglyceride (mg/dL) Date Value 02/06/2023 89 DIAGNOSIS: (C01) 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) (primary encounter diagnosis) Plan: CT NECK SOFT TISSUE W IVCON, iv contrast (will be provided with radiology test), CT CHEST W IVCON, iv contrast (will be provided with radiology test), COMPLETE BLOOD COUNT AND DIFFERENTIAL, COMPREHENSIVE METABOLIC PANEL (R91.8) Lung nodules (N18.30) Stage 3 chronic kidney disease, unspecified whether stage 3a or 3b CKD (HCC) (M16.10) Primary osteoarthritis of hip, unspecified laterality PAST MEDICAL HISTORY Diagnosis Date Cancer of [...] of 30 minutes on the date of service which included preparing to see the patient, cyuh-ro-vpsv patient care, completing clinical documentation, obtaining and/or reviewing separately obtained history, performing a medically appropriate examination, counseling and educating the patient/family/caregiver, ordering medications, tests, or procedures, independently interpreting results (not separately reported), communicating results to the patient/family/caregiver, and care coordination (not separately reported). John Valladares MD, CPE Hematology and Oncology Services Provided at: [place], [place] CC: Dr. Yordan Schwartz documented in this encounter Plan of Treatment DateTypeDepartmentCare Team (Latest Contact Info)Cinnljootqg93/22/2026 8:15 AM EDTAppointment Radiology Pet CT [address] [facility] [place] [address] CT Chest and neck with /29/2026 10:00 AM EDTOffice Visit Radiation Oncology [address] [place] [address] [place] [address] Yordan Randolph MD [address] [place] [address] [place] [address] 1 year follow up05/05/2026 10:40 AM EDTVisit (SP) Office Hematology/Oncology [address] [place] [address] [place] [address] John Valladares MD [address] [facility] [place] [address] 1 year follow up for lab and ct scan resultsNameTypePriorityAssociated Diagnoses Order ScheduleCT NECK SOFT TISSUE W IVCONRadiologyRoutine 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) 1 Occurrences starting 05/06/2025 until 06/05/2026T CHEST W IVCONRadiology Routine 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) 1 Occurrences starting 05/06/2025 until 06/05/2026OMPLETE BLOOD COUNT AND DIFFERENTIALLabRoutine 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) Expected: 05/09/2025 (Approximate), Expires: 05/06/2026OMPREHENSIVE METABOLIC PANELLabRoutine 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) Expected: 05/09/2025 (Approximate), Expires: 05/06/2026documented as of this encounter Visit Diagnoses Diagnosis 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 Lung nodules Other nonspecific abnormal finding of lung field Stage 3 chronic kidney disease, unspecified whether stage 3a or 3b CKD (HCC) Primary osteoarthritis of hip, unspecified laterality documented in this encounter Care Teams Team MemberRelationshipSpecialtyStart DateEnd Date Mason Johnson II, MD [address] [facility] [address] [place] [address] PCP - GeneralInternal Rhijdizs59/30/[address] [facility] [place] [place] [address] Registered DietitianNutrition08/20/22 John Valladares MD [address] [facility] [place] [place] [address] PhysicianHematology/Oncology08/21/22 Natalie Cadena APRN.SHIPPING/RECEIVING MANAGER [address] [facility] [place] [place] [address] Nurse PractitionerHematology/Oncology08/21/22 Yordan Randolph MD [address] [facility] [place] [place] [address] PhysicianRadiation Oncology08/21/22 Marysol Purvis LSW Social Worker09/07/22documented as of this encounter
--- OUTSIDE RECORDS SUMMARY | 2025-05-06 09:30 | XMS_ITS | Encounter Summary ---
Author Organization [facility] Address [address] [place], [place] [address] Care Team Providers Care Engineer Specialist Name Role Phone Dee Tirado KARLOS Unavailable [phone] John Valladares MD Unavailable [phone] Natalie Cadena APRN.FISHING MANAGER Unavailable [phone] Yordan Randolph MD Unavailable [phone] Marysol Purvis Unavailable Unavailable Alex OLIVAS MD, Mason Regan Primary Care Provider [phone] Source Comments In the event this information is protected by the Federal Confidentiality of Alcohol and Drug AbusePatient Records regulations: The Federal rules restrict any use of the information to criminally investigate or prosecute any alcohol or drug abuse patient.[facility] Reason for Visit * ReasonCommentsHead and Neck Cancer Encounter Details DateTypeDepartmentCare Team (Latest Contact Info)Vsgrfpaiefs43/30/2025 10:30 AM EDTOffice Visit Radiation Oncology [address] [place] [address] Yordan Randolph MD [address] [place] [address] [place] [address] Head and neck cancer (HCC) (Primary Dx); Acquired hypothyroidism Social History Tobacco UseTypesPacks/DayYears UsedDateSmoking Tobacco: NeverPassive Smoke Exposure: NeverSmokeless Tobacco: NeverAlcohol UseStandard Drinks/WeekComments Yes0 (1 standard drink = 0.6 oz pure alcohol)daily 3 beersPHQ-2AnswerDate RecordedPHQ-2 xudyg783rea Deprivation IndexAnswerDate RecordedNational Score (1-100), lower number is lower xntv804911/07/2022State Score (1-10), lower number is lower bixe6173Data from: https://www.neighborhoodatlas.[facility]/. Last address used for [address] [place] [address]/07/2022Sex and Gender InformationValueDate Recorded Sex Assigned at BirthNot on fileLegal HrjRzoa23/02/2012 10:15 AM ESTGender IdentityNot on fileSexual OrientationNot on filedocumented as of this encounter Functional Status * Are you deaf or do you have serious difficulty hearing?AnswerDate of FaubwlzlemNyqvfmNj31/23/2014 11:20 AM Jasmyn Anthony * Are you blind or do you have serious difficulty seeing, even when wearing glasses?AnswerDate of OxobzgdgqgSuogevAf28/23/2014 11:20 AM Jasmyn Anthony * Do you have serious difficulty walking or climbing stairs?AnswerDate of UsxrbbenisUlzpkhBm41/23/2014 11:20 AM Jasmyn Anthony * Do you have difficulty dressing or bathing?AnswerDate of AssessmentAuthorNo 04/29/2014 11:20 AM Jasmyn Anthony * Because of a physical, mental, or emotional condition, do you have difficulty doing errands alone such as visiting a doctor's office or shopping?AnswerDate of YbqbqeyiqzShptjfCc54/23/2014 11:20 AM Jasmyn Anthony documented as of this encounter Mental Status * Because of a physical, mental, or emotional condition, do you have serious difficulty concentrating, remembering, or making decisions?AnswerEntry Date PvwqliHw56/23/2014 11:20 AM Jasmyn Anthony documented in this encounter Progress Notes * Yordan Randolph MD - 05/06/2025 10:54 AM EDT Radiation Oncology - Follow Up Note PATIENT NAME: Manish Root PATIENT DIAGNOSIS: Oropharyngeal cancer, 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 INTERVAL HISTORY: Patient states he is doing well. Denies any significant neck pain or dysphagia. Mild dry mouth. Otherwise eating normally without significant limitations. LABORATORY: Latest Reference Range & Units 04/29/25 09:13 Sodium 136 - 144 mmol/L 142 Potassium 3.7 - 5.1 mmol/L 4.5 Chloride 98 - 107 mmol/L 103 CO2 22 - 30 mmol/L 26 BUN 9 - 24 mg/dL 17 Creatinine 0.73 - 1.22 mg/dL 1.07 Glucose 74 - 99 mg/dL 198 (H) Protein, Total 6.3 - 8.0 g/dL 7.1 Calcium 8.5 - 10.2 mg/dL 10.2 Albumin 3.9 - 4.9 g/dL 4.2 Bilirubin, Total 0.2 - 1.3 mg/dL 0.5 Alkaline Phosphatase 38 - 113 U/L 95 ALT 10 - 54 U/L 17 AST 14 - 40 U/L 15 Anion Gap 8 - 15 mmol/L 13 eGFR >=60 mL/min/1.73m 70 TSH 0.270 - 4.200 mIU/L 2.760 WBC 3.70 - 11.00 k/uL 5.88 RBC 4.20 - 6.00 m/uL 4.50 Hemoglobin 13.0 - 17.0 g/dL 13.2 Hematocrit 39.0 - 51.0 % 40.3 Platelet Count 150 - 400 k/uL 255 MCV 80.0 - 100.0 fL 89.6 MCH 26.0 - 34.0 pg 29.3 MCHC 30.5 - 36.0 g/dL 32.8 MPV 9.0 - 12.7 fL 9.8 RDW-CV 11.5 - 15.0 % 14.5 DTYPE Auto Neut% % 79.1 Abs Neut (ANC) 1.45 - 7.50 k/uL 4.66 Lymph% % 9.9 Abs Lymph 1.00 - 4.00 k/uL 0.58 (L) Bradley% % 7.8 Abs Bradley <0.87 k/uL 0.46 Eosin% % 1.4 Abs Eosin <0.46 k/uL 0.08 Baso% % 0.9 Abs Baso <0.11 k/uL 0.05 Immature Gran % % 0.9 IMMATURE GRANS (ABS) <0.10 k/uL 0.05 NRBC /100 WBC 0.0 Absolute nRBC <0.01 k/uL <0.01 (H): Data is abnormally high (L): Data is abnormally low Latest Reference Range & Units 10/23/23 10:52 10/28/24 07:53 T4 5.5 - 10.2 ug/dL 0.6 (L) Free T4 0.9 - 1.7 ng/dL 1.2 TSH 0.270 - 4.200 mIU/L 2.750 3.310 T3 79 - 165 ng/dL 93 (L): Data is abnormally low Hemoglobin (g/dL) Date Value 04/29/2025 13.2 Hematocrit (%) Date Value 04/29/2025 40.3 WBC (k/uL) Date Value 04/29/2025 5.88 Platelet Count (k/uL) Date Value 04/29/2025 255 Latest Reference Range & Units 10/16/23 10:46 [...] Lymph 1.00 - 4.00 k/uL 0.48 (L) Bradley% % 10.4 Abs Bradley <0.87 k/uL 0.32 Eosin% % 1.6 Abs Eosin <0.46 k/uL 0.05 Baso% % 0.6 Abs Baso <0.11 k/uL <0.03 Immature Gran % % 0.6 IMMATURE GRANS (ABS) <0.10 k/uL <0.03 NRBC /100 WBC 0.0 Absolute nRBC <0.01 k/uL <0.01 (L): Data is abnormally low RADIOLOGY: CT chest 04/29/2025:1. Stable CT of the chest. No findings to suggest new intrathoracic metastatic disease. 2. No evidence of bulky intrathoracic lymphadenopathy. CT neck 04/29/2025:* Stable posttreatment changes as detailed. No significant other enhancing lesion suggest recurrent or residual disease. * No enlarged lymph node in the neck, by CT size criteria. CT chest 10/28/2024: IMPRESSION: 1. No interval [...] 4. Skeleton: No hypermetabolic osseous lesions ALLERGIES Allergen Reactions Hisroxd-Sds-Zsj Red* GI Upset MEDICATIONS: celecoxib (CELEBREX) 200 mg capsule Take 200 mg by mouth once daily. tiZANidine (ZANAFLEX) 4 mg tablet Take 4 mg by mouth. traMADol (ULTRAM) 50 mg tablet Take 50 mg by mouth as needed. iv contrast (will be provided with radiology [...] current treatment for a chronic pain condition. GENERAL: No weight loss, malaise or fevers. NECK: Negative for goiter, pain or significant neck swelling RESPIRATORY: Negative for cough, hemoptysis, wheezing, COPD, dyspnea or shortness of breath CARDIOVASCULAR: Negative for chest pain, leg swelling, hypertension, CHF or palpitations MUSCULOSKELETAL: Negative for joint pain or swelling, back pain or muscle pain SKIN: Negative for lesions, rash, and itching. The remainder of the review of systems is negative. PHYSICAL EXAM: 05/06/25 10:08 Weight 90.8 kg (200 lb 2.8 oz) Height 166.9 cm (5' 5.71 ) BSA 2.05 BMI 32.6 Temp 36.6 ??C (97.8 ??F) Pulse 68 Resp 16 BP 108/53 SpO2 98 % KPS: 100 General Appearance: Well appearing, alert, [...] No evidence of recurrence clinically or radiographically. Recent CT neck and chest without remarkable findings. He continues close follow-up and surveillance withDr. Schwartz. 2. Lung nodule CT demonstrating stability. Continue surveillance. Repeat imaging scheduled for 6 months. 3. Mixed subclinical hypothyroidism, recent TSH within normal limits. Signed by: Yordan Randolph MD cc: Dr. Shaikh Vidal Estrada [address] [place] [address] documented in this encounter Plan of Treatment DateTypeDepartmentCare Team (Latest Contact Info)Fcbmvvmrubb49/22/2026 8:15 AM EDTAppointment Radiology Pet CT [address] [facility] [place] [address] CT Chest and neck with xlqbzicn60/29/2026 10:00 AM EDTOffice Visit Radiation Oncology [address] [place] [place] [address] Yordan Randolph MD [address] [place] [address] 1 year follow up05/05/2026 10:40 AM EDTVisit (SP) Office Hematology/Oncology [address] [place] [address] [place] [address] John Valladares MD [address] [place] [address] 1 year follow up for lab and ct scan resultsNameTypePriorityAssociated Diagnoses Order ScheduleTHYROID STIMULATING HORMONELabRoutine Head and neck cancer (HCC) Acquired hypothyroidism Expected: 05/06/2026, Expires: 08/05/2026documented as of this encounter Visit Diagnoses Diagnosis Head and neck cancer (HCC)- Primary Malignant neoplasm of head, face, and neck Acquired hypothyroidism Unspecified hypothyroidism documented in this encounter Care Teams Team MemberRelationshipSpecialtyStart DateEnd Date Mason Johnson II, MD [address] [facility] [address] [place] [address] PCP - GeneralInternal Akkropbx99/30/[address] [place] [address] [place] [address] Registered DietitianNutrition08/20/22 John Valladares MD [address] [place] [address] [place] [address] PhysicianHematology/Oncology08/21/22 Natalie Cadena APRN.CNP [address] [place] [address] [place] [address] Nurse PractitionerHematology/Oncology08/21/22 Yordan Randolph MD [address] [place] [address] [place] [address] PhysicianRadiation Oncology08/21/22 Marysol Purvis LSW Social Worker09/07/22documented as of this encounter
--- OUTSIDE RECORDS SUMMARY | 2025-05-11 14:15 | XMS_ITS | Encounter Summary ---
Author Organization [facility] Address [address] [place] [address] Care Team Providers Care Hand Picker Name Role Phone Mason Johnson MD Primary Care Provider [phone] Reason for Referral * Imaging (Routine) - Pending ReviewSpecialtyDiagnoses / ProceduresReferred By ContactReferred To ContactCardiology Diagnoses Pre-op evaluation Coronary artery disease, unspecified vessel or lesion type, unspecified whether angina present, unspecified whether koi or transplanted heart Atypical atrial flutter (CMS/HCC) Procedures Transthoracic echo (TTE) complete Franki Zimmerman MD [address] [place] [address] Phone: tel: fax: Referral IDStatusReasonStart DateExpiration DateVisits RequestedVisits [id number] Review Perform Procedure Reason for Visit * ReasonCommentsNew PatientPatient is here today to establish care with cardilolgy. Patient was recently in the hospital for A-Fib seen at [facility] ER. Patient also need surgery clearance, For left hip replacement. Patient chest pain, SOB/BUTT, palpitations/racing heart, fatigue, dizziness/lightheadedAtrial FibrillationCoronary Artery DiseaseHypertensionHyperlipidemiaRaynaud's Encounter Details DateTypeDepartmentCare Team (Latest Contact Info)Wkuyrwtjlen58/04/2025 2:15 PM ESTOffice Visit [facility] at [facility] [address] [place] [address] Franki Zimmerman MD [address] [place] [phone] Pre-op evaluation (Primary Dx); Coronary artery disease, unspecified vessel or lesion type, unspecified whether angina present, unspecified whether koi or transplanted heart; Atypical atrial flutter (CMS/HCC) Social History Tobacco UseTypesPacks/DayYears UsedDateSmoking Tobacco: NeverSmokeless Tobacco: Never Tobacco Cessation:Counseling Given: Not Answered Alcohol UseStandard Drinks/WeekCommentsYes0 (1 standard drink = 0.6 oz pure alcohol)2 bottles of beer per daySex and Gender InformationValueDate RecordedSex Assigned at ExwerNolh81/04/2025 2:10 PM ESTLegal UmgEkig1301/03/2022 10:06 PM EDT Gender CsykqtkfQcfx80/04/2025 2:10 PM ESTSexual OrientationHeterosexual or Knjlvvyt15/04/2025 2:10 PM ESTdocumented as of this encounter Last Filed Vital Signs Vital SignReadingTime TakenCommentsBlood Kkoanchv612/7905/11/2025 2:45 PM EST Fhgyi211505/11/2025 2:45 PM ESTTemperature--Respiratory Rate--Oxygen Dgzvunwhhk31% 05/11/2025 2:45 PM ESTInhaled Oxygen Concentration--Zfgcss82 kg (194 lb) 05/11/2025 2:45 PM NKVOyqkmw691.2 cm (5' 7 )05/11/2025 2:45 PM ESTBody Mass Index30.38107/11/2024 2:45 PM ESTdocumented in this encounter Functional Status * BPAnswerDate of PnsufzqzdtSzoaom028/7905/11/2025 2:45 PM Awilda Martinez MA * PulseAnswerDate of GsqxxoyhyrVhyxij6753/04/2025 2:45 PM Awilda Martinez MA * Patient PositionAnswerDate of YukgqpatyyDqmrzaYifipbc14/04/2025 2:45 PM EST Awilda Gallagher MA * BPAnswerDate of CagmxzmcatXcnsro242/ 2:45 PM Awilda Martinez MA * PulseAnswerDate of WjxkynaffvXzilch6543/04/2025 2:45 PM Awilda Martinez MA * GeN0HwtvdoGxfs of FcsdcxsfqdDxqaxu9965/04/2025 2:45 PM Awilda Martinez MA * BP LocationAnswerDate of AssessmentAuthorLeft arm05/11/2025 2:45 PM EST Awilda Gallagher MA * Patient PositionAnswerDate of QzumykzauePlbgzqLsfzgfa56/04/2025 2:45 PM EST Awilda Gallagher MA documented as of this encounter Progress Notes * Franki Zimmerman MD - 05/11/2025 2:15 PM EST Images from the original note were not included. [place] [facility] Consult Note [place] [facility] Reason for visit: Atrial flutter HPI: Manish Root is a 79 y.o. year old with past medical history of diabetes mellitus type 2, CAD s/p PCI in 1999s at [place] (no records available) squamous cell carcinoma of [...] outpatient visits with Dr. Basilio here at [place]. He states that he is fairly active and is not symptom limited except for difficulty walking and leading to his orthopedic issues PMH: Medical History[1] PSH: Surgical History[2] SH: Social Drivers of Health Tobacco Use: Low Risk (05/11/2025) Patient History Smoking Tobacco Use: Never Smokeless Tobacco Use: Never Passive Exposure: Not on file Alcohol Use: Unknown (07/29/2023) Received from [facility] [employer] AUDIT-C Frequency of Alcohol Consumption: 4 or more times a week Average Number of Drinks: Not on file Frequency of Binge Drinking: Not on file Financial Resource Strain: High Risk (06/10/2023) Received from [facility] Overall Financial Resource Strain (CARDIA) Difficulty of Paying Living Expenses: Very hard Food Insecurity: No Food Insecurity (06/10/2023) Received from [facility] Hunger Vital Sign Worried About Running Out of Food in the Last Year: Never true Ran Out of Food in the Last Year: Never true Transportation Needs: No Transportation Needs (06/10/2023) Received from [facility] PRAPARE - Transportation Lack of Transportation (Medical): No Lack of Transportation (Non-Medical): No Physical Activity: Sufficiently Active (06/10/2023) Received from [facility] Exercise Vital Sign Days of Exercise per Week: 7 days Minutes of Exercise per Session: 30 min Stress: No Stress Concern Present (06/10/2023) Received from [facility] [place] of Occupational Health - Occupational Stress Questionnaire Feeling of Stress : Not at all Social Connections: Moderately Isolated (06/10/2023) Received from [facility] Social Connection and Isolation Panel [NHANES] Frequency of Communication with Friends and Family: Three times a week Frequency of Social Gatherings with Friends and Family: Three times a week Attends Sabianist Services: Never Active Member of Clubs or Organizations: No Attends Club or Organization Meetings: Never Marital Status: Intimate Partner Violence: Not At Risk (06/10/2023) Received from [facility] Humiliation, Afraid, Rape, and Kick questionnaire Fear of Current or Ex-Partner: No Emotionally Abused: No Physically Abused: No Sexually Abused: No Depression: Not at risk (12/28/2024) Received from [facility] PHQ-2 Patient Health Questionnaire-2 Score: 0 Housing Stability: Unknown (06/10/2023) Received from [facility] Housing Stability Vital Sign Unable to [...] in sinus Franki Zimmerman MD Cardiac Electrophysiology [facility] [1] Past Medical History: Diagnosis Date Abnormal ECG Arrhythmia Cancer (CMS/HCC) Chronic kidney disease Coronary artery disease Diabetes mellitus (CMS/HCC) [2] Past Surgical History: Procedure Laterality Date CARDIAC CATHETERIZATION CORONARY STENT PLACEMENT [3] Allergies Allergen Reactions Gusiwwn-Tcy-Pzf Reductase Inhibitors Other [4] Current Outpatient Medications [...] Plan of Treatment DateTypeDepartmentCare Team (Latest Contact Info)Boolpttfoqk16/03/2025 11:30 AM ESTHospital Encounter [facility] V[facility] Center Vascular Lab [address] [place] [address] Franki Zimmerman MD [address] [place] [address] Atrial flutter, unspecified type (CMS/HCC)06/09/2025 11:30 AM EST - 06/09/2025 1:30 PM ESTSurgery [facility] Vascular Lab [address] [place] [phone] Franki Zimmerman MD [address] [place] [phone] Ablation atrial flutter [30013 (CPT??)]NameTypePriorityAssociated DiagnosesOrder ScheduleTransthoracic echo (TTE) completeEchocardiographyRoutine Pre-op evaluation Coronary artery disease, unspecified vessel or lesion type, unspecified whether angina present, unspecified whether koi or transplanted heart Atypical atrial flutter (CMS/HCC) Expected: 05/11/2025 (Approximate), Expires: 05/11/2027Lexiscan Stress Myocardial Perfusion ImagingCardiac ServicesRoutine Pre-op evaluation Coronary artery disease, unspecified vessel or lesion type, unspecified whether angina present, unspecified whether koi or transplanted heart Atypical atrial flutter (CMS/HCC) Expected: 05/11/2025 (Approximate), Expires: 05/11/2027documented as of this encounter Visit Diagnoses Diagnosis Pre-op evaluation- Primary Coronary artery disease, unspecified vessel or lesion type, unspecified whether angina present, unspecified whether koi or transplanted heart Atypical atrial flutter (CMS/HCC) Atrial flutter, unspecified type (CMS/HCC) Atrial flutter, unspecified type (CMS/HCC) documented in this encounter Care Teams Team MemberRelationshipSpecialtyStart DateEnd Date Mason Johnson MD [address] [facility] [address] [place] [address] PCP - GeneralInternal Rlcnxtfg15/22/25documented as of this encounter
--- NOTE | 2025-05-19 06:51 | CA_ITS ---
Patient Name: ANN RIVERA MR#: [id number] : 1945 Exam Date: 05/19/2025 Ordering Doctor: TIFFANI MONSIVAIS ECHOCARDIOGRAM REPORT PROCEDURE: CA ECHO DOPPLER COMPLETE INDICATIONS: CAD, Atrial flutter COMPARISON: None. DESCRIPTION: COMPLETE ECHOCARDIOGRAM Real-time transthoracic echocardiography with 2D, M-mode, spectral and color flow Doppler performed. QUALITY: Technical quality was good. LEFT VENTRICLE: Normal chamber size. Mild concentric left ventricular hypertrophy. LV EF: Global left ventricular systolic function is normal. Calculated left ventricular ejection fraction is 60-65%. No significant wall motion abnormalities. DIASTOLIC: Not adequately assessed due to heart rhythm. ATRIAL SEPTUM: Inadequately seen. LEFT ATRIUM: Mild dilatation. RIGHT ATRIUM: Moderate dilatation. RIGHT VENTRICLE: Normal chamber size. Normal right ventricular systolic function. TRICUSPID VALVE: Normal mobility and thickness. No stenosis with mild regurgitation. No evidence of pulmonary hypertension. RVSP is 27mmHg. MITRAL VALVE: Normal mobility and thickness. No evidence of mitral valve stenosis. There is no mitral annular calcification. Trivial mitral regurgitation. AORTIC VALVE: Normal trileaflet appearance. Mildly calcified aortic valve. Normal leaflet mobility. No evidence of aortic valve stenosis. Mild aortic regurgitation. AORTIC ROOT: The aortic root is upper normal limits in size and measures 3.8cm. PULMONIC VALVE: Normal thickness and mobility. No stenosis. No regurgitation. PERICARDIUM: No evidence of pericardial effusion. IVC: Collapses with inspiration. The IVC is normal in size measuring 2.0cm. CONCLUSION: 1. Global left ventricular systolic function is normal; visually estimated ejection fraction is 60 to 65% 2. Normal right ventricular size and systolic function 3. Mild left ventricular hypertrophy 4. Biatrial dilatation 5. Mild tricuspid regurgitation 6. Mild aortic valve regurgitation Adult Echocardiography Procedure Report Left Ventricle LVEDD (3.7 - 5.6 cm): 4.29 cm LVESD (2.2 - 4.0 cm): 2.67 cm LVIVS thickness (0.6 - 1.2 cm): 1.22 cm LVPW thickness (0.5 - 1.0 cm): 1.06 cm e': 0.15 m/s E - e': 5.61 LVOT Max Gradient: 4.14 mm[Hg] LVOT Area (cm2): 1.02 m/s Peak Velocity (LVOT): 1.02 m/s Mean Velocity (LVOT): 0.65 m/s LVOT Diameter 2.14 cm Left Ventricular Ejection Fraction: 64.83 % Left Atrium LA Volume Index (2D A2C): 40.00 ml/m2 Left Atrium Systolic Dimension: 3.98 cm Mitral Valve MV E to A Ratio: 1.90 Mitral Valve A-Wave Peak Velocity: 0.46 m/s Mitral Valve E-Wave Peak Velocity: 0.87 m/s Right Ventricle RV Internal Diastolic Dimension: 3.44 cm Aorta AO Root Diam: 3.81 cm Ascending Ao Diam: 3.68 cm Aortic Valve AoV Area (Peak Ruben): 3.23 cm2, 3.23 cm2 AoV Area (VTI): 3.35 cm2, 3.35 cm2 Deceleration Chaves: 1.21 m/s2 Pressure Half-Time: 725.67 ms Peak Velocity(Antegrade Flow): 1.13 m/s Peak Gradient(Antegrade Flow): 5.09 mm[Hg] Mean Velocity(Antegrade Flow): 0.75 m/s Mean Gradient(Antegrade Flow): 2.60 mm[Hg] Velocity Time Integral: 21.53 cm Tricuspid Valve Peak Velocity (Regurgitant Flow): 2.15 m/s, 2.45 m/s, 2.18 m/s Pulmonic Valve Peak Velocity: 0.69 m/s Peak Gradient: 2.00 mm[Hg], 1.85 mm[Hg] Right Atrium Right Atrium Systolic Pressure: 56.07 ml, 56.07 ml Dictated by: Guanaco Gramajo M.D. on 05/19/2025 at 16:04 Approved by: Guanaco Gramajo M.D. on 05/19/2025 at 16:10
--- OUTSIDE RECORDS SUMMARY | 2025-05-19 06:54 | XMS_ITS | CCD ---
Author Organization [facility] Care Team Providers Care Assistant Signal Maintainer Name Role Phone MANNIE NELSON Primary Care [...] EVERETT, Dee Unavailable Jacquelyn WELCH, John Unavailable [phone] Surinder WAGNERN[employer], Natalie Unavailable Paulino HORNER, Rafael Unavailable Yordan Feliz MD Unavailable Yaniv DENG, Marysol Unavailable Unavailable Candida RD, Dee Unavailable Vidal WELCH, [facility] Primary Care Provider Candida RD, Dee Unavailable Paulino RN, Rafael Unavailable Vidal WELCH, [facility] Primary Care Provider Mannie Nelson MD Primary Care Provider Unallocatkira WELCH, Noms Provider Primary Care Provi vidhya Alex OLIVAS MD, Daniel B Primary Care Provider Mason Johnson MD Primary Care Provider Vidal WELCH, [facility] Primary Care Provider [phone] Mason Johnson MD Unavailable Mechelle Boyer DO Attending Provider MASON JOHNSON Attending Unavailable BARRY STEVENS Attending Unavailable MASON JOHNSON Referring Unavailable MASON JOHNSON B Attending Unavailable TIMMIS, SERENE H Attending Unavailable MASON JOHNSON B Attending Unavailable ALEX MASON B Attending Unavailable ALEX MASON B Attending Unavailable JOHNSON MASON B Attending Unavailable TIMMIS, SERENE H Attending Unavailable MASON JOHNSON B Attending Unavailable STEPJR. MASON GEORGE C Attending Unavaila MASON Campos Referring Unavailable STEPJR. MASON GEORGE C Referring Unavaila ble TIMMIS, SERENE H Attending Unavailable STEPJR. MASON GEORGE C Attending Unavaila MASON Campos Attending Unavailable TIMMIS, SERENE H Attending Unavailable BARRY STEVENS Attending Unavailable TIMMIS, SERENE H Attending Unavailable TIMMIS, SERENE H Attending Unavailable Mechelle Boyer Jr Attending Unavailable Mechelle Boyer Jr Admitting Unavailable Vidal WELCH, [facility] Primary Care Provider [phone] Vidal WELCH, [facility] Primary Care Provider Unallocated Quiana WELCH Provider Primary Care Melquiades vidhya TIFFANI MONSIVAIS Attending Unavailable JOHNSON II, MASON B Primary Care Unavailable ENGELER, G JEYSON Referring Unavailable JOHNSON II, MASON B Primary Care Unavailable ENGELER, G JEYSON Attending Unavailable ABHYANKAR, JOHN Attending Unavailable ABHYANKAR, JOHN Referring Unavailable JOHNSON II, MASON B Primary Care Unavailable ABHYANKAR, JOHN Referring Unavailable JOHNSON II, MASON B Primary Care Unavailable ENGELER, G JEYSON Referring Unavailable JOHNSON II, MASON B Primary Care Unavailable ENGELER, G JEYSON Attending Unavailable ENGELER, G JEYSON Referring Unavailable ABHYANKAR, JOHN Attending Unavailable JOHNSON II, MASON B Primary Care Unavailable ABHYANKAR, JOHN Referring Unavailable JOHNSON II, MASON B Primary Care Unavailable Allergies Allergy ClassificationReported Allergen(s)Allergy TypeDate of OnsetReaction(s) Facility (1 source)No Known Medication Allergies; Translations: [No Known Medication Allergies]Propensity to adverse reactions (disorder)[facility] Repository (20 sources)HMG-CoA reductase inhibitorPropensity to adverse uolntycga65-62-3049 GI intoleranceNOFreeman Health System Work Phone: (2 sources)Hmg-Coa Reductase Inhibitors (Statins); Translations: [[id number]-JDE-WLW REDUCTASE INHIBITORS]Propensity to adverse reactions to drug (disorder)38-72-3882OopsbkazyoBlanchard Valley [facility] System Repository Medications Current Medications MedicationDrug Class(es)DatesSig (Normalized)Sig (Original)apixaban 5 mg oral tablet (2 sources)Factor Xa InhibitorStart: 05-12-2025 End: 42-34-9602alkx 1 tablet by mouth in the morningapixaban (Eliquis) 5 MG tablet Indications: History of heart artery stent Take 1 tablet (5 mg) by mouth in the morning and 1 tablet (5 mg) before bedtime. 60 tablet 11 05/14/2025 05/14/2026 Activeaspirin 81 mg delayed release oral tablet (20 sources)Platelet Aggregation Inhibitor, Nonsteroidal Anti-inflammatory Drug Start: 73-70-1566qyie 1 tablet by mouth once dailyaspirin 81 [...] oral tablet (5 sources)Cephalosporin AntibacterialStart: 10-01-2022 End: 66-08-2786xcow 1 tablet by mouth twice dailycefUROXime (CEFTIN) 500 mg tablet Take 1 tablet by mouth twice daily for 10 days. 20 tablet 0 10/01/2022 10/11/2022 ActiveComment on above:Take 1 tablet by mouth twice daily for 10 days.celecoxib 200 mg oral capsule (20 sources)Nonsteroidal Anti-inflammatory DrugStart: 10-12-2024 End: 59-41-3963ktml 1 capsule by mouth in the morningcelecoxib (CeleBREX) 200 MG capsule Indications: Osteoarthritis, unspecified osteoarthritis type, un specified site Take 1 capsule (200 mg) by mouth in the morning and 1 capsule (200 mg) before bedtime. 60 capsule 6 11/11/2024 06/09/2025 Activecephalexin 500 mg oral capsule (1 source)Cephalosporin AntibacterialStart: 41-12-6770aenr 1 capsule by mouth every eight hourscholecalciferol 1.25 mg oral capsule (20 sources)Vitamin DStart: 17-86-1830oirn 1 capsule by mouth every week cholecalciferol, [...] mg oral capsule (20 sources)Provitamin D2 CompoundStart: 09-06-0024beob 1 capsule by mouth every weekergocalciferol 50,000 [...] with radiology test) (10 sources)Start: 11-04-2024 End: 33-30-8485tshhlc 1 dose intravenously once, then inject 1 [...] 1 each 11/04/2024 11/04/2024 ExpiredStart: 11-04-2024 End: 27-36-7737aipnwr 1 dose intravenously once, then inject 1 [...] guidelines link. 1 each 11/04/2024 11/04/2024 ActiveStart: 75-40-3212ih contrast (will be provided with radiology test) [...] link. 1 each 11/04/2024 ActiveStart: 05-06-2024 End: 84-49-8705ljyfkn 1 dose intravenously once, then inject 1 [...] 1 Each 05/06/2024 05/06/2024 ExpiredStart: 05-06-2024 End: 45-33-5410ro contrast (will be provided with radiology test) [...] 1 Each 05/06/2024 05/07/2024 ExpiredStart: 10-23-2023 End: 35-83-4381dd contrast (will be provided with radiology test) [...] Each 0 10/23/2023 10/24/2023 ActiveStart: 10-23-2023 End: 53-44-7739tvhdnr 1 dose intravenously once, then inject 1 [...] Each 0 10/23/2023 10/23/2023 ExpiredStart: 03-20-2023 End: 40-70-6516zm contrast (will be provided with radiology test) [...] Each 0 03/20/2023 03/21/2023 ActiveStart: 02-06-2023 End: 31-92-6129am contrast (will be provided with radiology test) [...] 0.05 mg/ml ophthalmic solution (20 sources)Prostaglandin AnalogStart: 02-14-1705eyle 1 drop(s) into the eye(s) at bedtimelatanoprost (XALATAN) 0.005 % ophthalmic solution instill 1 (ONE) DROP IN BOTH EYES AT BEDTIME 05/01/2023 Activetake 1 drop(s) into the eye(s) once dailylatanoprost (Xalatan) 0.005 % ophthalmic solution Administer 1 drop into both eyes Daily ActiveComment on above:instill 1 (ONE) DROP IN BOTH EYES AT BEDTIMEmetFORMIN hydrochloride 500 mg oral tablet (20 sources)BiguanideStart: 06-12-2022 End: 19-61-6366pyer 1 tablet by mouth once dailymetFORMIN (Glucophage) 500 MG tablet Indications: Type 2 diabetes mellitus without complication, without long- term current use of insulin (HCC) Take 1 tablet (500 mg) by mouth Daily 100 tablet 3 12/04/2024 06/02/2025 ActiveStart: 30-77-7081ccvs 2 tablets by mouth once daily in the morning, then take 1 tablet by mouth in the eveningmetFORMIN (GLUCOPHAGE) 500 mg tablet TAKE 2 TABLETS BY MOUTH EVERY MORNING and TAKE 1 TABLET BY MOUTH IN THE EVENING 0 06/12/2022 ActiveStart: 06-50-7581jzcr 1 tablet by mouth in the eveningmetFORMIN (GLUCOPHAGE) 500 mg tablet Take 500 mg by mouth as directed. 1 AM/1 PM 0 06/12/2022 ActiveComment on above:TAKE 2 TABLETS BY MOUTH EVERY MORNING and TAKE 1 TABLET BY MOUTH IN THE EVENINGTake 500 mg by mouth as directed. 1 AM/ PMTake 500 mg by mouth once daily.24 hr metoprolol succinate 25 mg extended release oral tablet (20 sources)beta-Adrenergic BlockerStart: 48-65-5333flvv 1 tablet by mouth once dailymetoprolol succinate XL (Toprol-XL) 25 MG 24 hr tablet Indications: Primary hypertension Take 1 tablet (25 mg) by mouth Daily Do not crush or chew. 90 tablet 3 12/10/2024 ActiveStart: 80-66-8595yohw 1 tablet by mouth every twenty- four hoursStart: 34-06-7788Mjwkyycybc Succinate Active MG PO April 07, 2024 12:00amStart: 06-12-2022 End: 65-75-5923dvfu 1 tablet by mouth once dailymetoprolol succinate XL (Toprol- XL) 25 MG 24 hr tablet Indications: Primary hypertension (CMS/HCC) TAKE 1 TABLET BY MOUTH DAILY at the same time each day 90 tablet 1 05/18/2024 ActiveStart: 75-55-5303iptz 1 tablet by mouth once dailyMetoprolol succinate 25 mg ER Tablet 1 tab, Oral, Daily, Refills(s) 0 Start Date: 04/18/20 Status: OrderedComment on above:Take 25 mg by mouth once daily.tiZANidine 4 mg oral tablet (18 sources)Central alpha-2 Adrenergic AgonistStart: 88-10-6954rfyj 1 tablet by mouth in the morningtiZANidine (Zanaflex) 4 MG tablet Indications: Torticollis Take 1 tablet (4 mg) by mouth in the morning and 1 tablet (4 mg) before bedtime. 60 tablet 3 04/21/2025 ActiveStart: 08-31-2024 End: 28-41-1374iarb 1 tablet by mouth in the morningtiZANidine (Zanaflex) 4 MG tablet Indications: Torticollis Take 1 tablet (4 mg) by mouth in the morning and 1 tablet (4 mg) before bedtime. 60 tablet 3 08/31/2024 10/12/2024 Discontinued (Side effects)traMADol hydrochloride 50 mg oral tablet (13 sources)Opioid AgonistStart: 03-26-2025 End: 37-42-5247liil 2 tablets by mouth every eight hours for paintraMADol (Ultram) 50 MG tablet Indications: Pseudogout involving multiple joints Take 2 tablets (100 mg) by mouth every 8 (eight) hours if needed for severe pain 40 tablet 1 03/26/2025 04/30/2025 Activetriamcinolone acetonide 1 mg/ml topical cream (1 source)CorticosteroidStart: 04-07-2024 Completed/Discontinued Medications MedicationDrug Class(es)DatesSig (Normalized)Sig (Original)atenolol 25 mg oral tablet (4 sources)beta-Adrenergic BlockerStart: 11-12-2012 End: 32-74-5544rciw 1 tablet by mouth once dailyATENOLOL 25 mg tablet Take 25 mg by mouth once daily. 0 11/12/2012 08/16/2022 Discontinued (Discontinued by another Health Care Provider)Comment on above:Take 25 mg by mouth once daily. ciprofloxacin 500 mg oral tablet (7 sources)Quinolone AntimicrobialStart: 10-19-2022 End: 04-54-5121amsy 1 tablet by mouth twice dailyciprofloxacin HCl (CIPRO) 500 mg tablet Take 1 tablet by mouth twice daily for 14 days. 28 tablet 11/02/2022 ExpiredComment on above:Take 1 tablet by mouth twice daily for 14 days.Magnesium (17 sources) End: 56-93-7189Skeyzvnse 400 MG capsule Take by mouth 05/19/2024 Discontinued (Therapy completed)Magnesium 400 MG capsule Take by mouth Active methylPREDNISolone (19 sources)CorticosteroidStart: 04-14-2025 End: 70-59-5923jfzqauDUKNQOEstnzt (Medrol Dospak) 4 MG tablets Indications: Left hip pain Follow schedule on package instructions 21 tablet 04/14/2025 04/30/2025 DiscontinuedStart: 13-53-0122bqvjkqRCXZVQYycmqn (Medrol Dospak) 4 MG tablets Indications: Left hip pain Follow schedule on package instructions 21 tablet 04/14/2025 ActiveStart: 12-09-2024 End: 45-71-2921pmpdffHTMVKMNpvdfq (Medrol Dospak) 4 MG tablets Indications: Inflammatory arthritis Follow scheduleon package instructions 21 tablet 12/09/2024 12/28/2024 Discontinued (Therapy completed)Start: 12-09-2024 End: 19-75-0409geszljVTYBXFVtghkf (Medrol Dospak) 4 MG tablets Indications: Inflammatory arthritis Follow scheduleon package instructions 21 tablet 12/09/2024 12/16/2024 Activeondansetron 8 mg oral tablet (20 sources)Serotonin-3 Receptor AntagonistStart: 08-21-2022 End: 00-41-4687zuwv 1 tablet by mouth every eight hours as neededondansetron (ZOFRAN) 8 mg tablet Take 1 tablet by mouth every 8 hours as needed for nausea/vomiting. 90 tablet 1 08/21/2022 05/08/2023 Discontinued (Discontinued by Patient)Comment on above:Take 1 tablet by mouth every 8 hours as needed for nausea/vomiting.prochlorperazine 10 mg oral tablet (20 sources)PhenothiazineStart: 08-21-2022 End: 76-44-0833ekcu 1 tablet by mouth every six hours as neededprochlorperazine (COMPAZINE) 10 mg tablet Take 1 tablet by mouth every 6 hours as needed. 100 tablet 1 08/21/2022 05/08/2023 Discontinued (Discontinued by Patient)Comment on above:Take 1 tablet by mouth every 6 hours as needed. Problems Active Problems Problem ClassificationProblemDateDocumented DateEpisodic/Chronic Administrative/social admission (4 sources)Patient encounter status; Translations: [Other specified counseling] 80-70-1638AugcdtgcDaiuvtvz of urinary tract (1 source)Personal history of urinary calculi; Translations: [PERSONAL HISTORY OF URINARY CALCULI]Onset: 98-51-7710WlvjptraOqtiih of colon (20 sources)Malignant tumor of colon; Translations: [Malignant neoplasm of colon, unspecified]Onset: 11-19-2012 Resolved: 757069-93-6581KxuxuvsOauwdn of head and neck (20 sources)Malignant neoplasm of base of tongue; Translations: [Malignant tumor of tongue]Onset: 58-18-9682KhykaqvKmtukjx dysrhythmias (2 sources)Atypical atrial flutter; Translations: [Atypical atrial flutter] Onset: 88-43-8149EcplrcuLltplsu kidney disease (20 sources)Chronic kidney disease stage 3; Translations: [Stage 3 chronic kidney disease, unspecified whether stage 3a or 3b CKD (HCC)]Onset: 2022 ChronicChronic kidney disease (1 source)Chronic kidney disease; Translations: [Stage 3 chronic kidney disease, unspecified whether stage 3aor 3b CKD (HCC)]Onset: 96-74-1669Opvxpcdo atherosclerosis and other heart disease (20 sources)History of myocardial infarction; Translations: [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]Onset: 545180-03-9993NkbiflzImztrgut mellitus with complications (20 sources)Type 2 diabetes mellitus well controlled; Translations: [Type 2 diabetes mellitus with diabetic chronic kidney disease]Onset: 01-15-2023 63-87-4549UrdcftlRmfyvvqu of white blood cells (20 sources)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; Translations: [Agranulocytosis secondary to cancer chemotherapy]Onset: 10-19-2022 Resolved: 78-11-1153TaqqmriUoerpvgnw of lipid metabolism (20 sources)Hypercholesterolemia; Translations: [Pure hypercholesterolemia, unspecified]Onset: 08-03-2022 Resolved: 440053-61-0391QhsbagsWlcxnfpwkj disorders (20 sources)Gastroesophageal reflux disease; Translations: [Gastro-esophageal reflux disease without esophagitis]Onset: 229845-98-1076YyielvdNzeqwfkcf hypertension (20 sources)Hypertensive disorder; Translations: [Essential (primary) hypertension]Onset: 153538-97-3611QfdcripSkuxhlqpawzis symptoms and ill- defined conditions (2 sources)Genuine stress incontinence; Translations: [Stress incontinence (female) (male)]10-94-4819IjtibcfEmqx and other crystal arthropathies (20 sources)Pyrophosphate arthritis; 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, multiple sites]Onset: 045006-67-5721RzqzotoKgevglroa (20 sources)Nonalcoholic steatohepatitis; Translations: [Nonalcoholic steatohepatitis (OJEDA)]Onset: 635726-04-3115BwqwazyRbgyijbliazkx and screening for infectious disease (1 source)Vaccination needed; Translations: [Encounter for immunization] 03-58-4796EsbuqcteIfwfetspawpzng (20 sources)Osteoarthritis; Translations: [Unspecified osteoarthritis, unspecified site]Onset: 999902-38-2273IejaiyxRgkxi aftercare (1 source)digital media intern (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 of anticoagulants; Translations: [SENIOR CARE CURRNT USE ANTICOAGULANTS]Onset: 83-03-4377EmyasthlUfkcp aftercare (1 source)digital media intern (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 of oral hypoglycemic drugs; Translations: [TRANSFORMER TESTER USE ORAL HYPOGLYCEMIC DX]Onset: 32-98-6512KnevkpmgQlzui aftercare (1 source)[facility] (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 of aspirin; Translations: [SENIOR CARE CURRENT USE OF ASPIRIN]Onset: 89-61-3961UqhixgtgAmjmg and unspecified benign neoplasm (1 source)Personal history of colonic polyps; Translations: [PERSONAL HISTORY OF COLONIC POLYPS]Onset: 71-16-5398WqklevvwOiufw and unspecified benign neoplasm (1 source)Benign neoplasm of ascending colon; Translations: [BENIGN NEOPLASM OF ASCENDING COLON]Onset: 84-27-5905RujmffssKcsjs and unspecified benign neoplasm (1 source)Benign neoplasm of descending colon; Translations: [BENIGN NEOPLASM OF DESCENDING COLON]Onset: 13-52-1866SocqjhsfFgzax gastrointestinal disorders (1 source)Dysphagia, unspecified; Translations: [DYSPHAGIA UNSPECIFIED]Onset: 79-02-8930HzscwtszOnifq liver diseases (1 source)Fatty (change of) liver, not elsewhere classified; Translations: [FATTY CHANGE LIVER NEC]Onset: 77-61-7133MxqghdyQpqye lower respiratory disease (3 sources)Lung mass; Translations: [Other nonspecific abnormal finding of lung field]54-10-5276CidcsodhEtofn lower respiratory disease (9 sources)Multiple nodules of lung; Translations: [Other nonspecific abnormal finding of lung field]66-13-8036JcurykyhNiytr lower respiratory disease (1 source)Nodule of lung; Translations: [Solitary pulmonary nodule]02-11-2023 EpisodicOther non-traumatic joint disorders (12 sources)Hip pain; Translations: [Pain in left hip]72-30-6998WuabvurcMiidr non-traumatic joint disorders (4 sources)Effusion of joint of left knee; Translations: [Effusion, left knee] 24-67-0580KonbxvujZmmpe non-traumatic joint disorders (4 sources)Pain in left knee; Translations: [Pain in joint, lower leg]12-09-2024 EpisodicOther nutritional; endocrine; and metabolic disorders (2 sources)Overweight in adulthood with body mass index of 25 or more but less than 7568-50-1046AgxlsuloPavpu screening for suspected conditions (not mental disorders or infectious disease) (1 source)Abnormal findings on diagnostic imaging of other specified body structures; Translations: [ABNORML FIND DX IMG OTH BODY STRUC]Onset: 08-01-2022 ChronicOther screening for suspected conditions (not mental disorders or infectious disease) (4 sources)Electrocardiogram abnormal; Translations: [Abnormal electrocardiogram [ECG] [EKG]]56-51-4955CnjqgdahAjcac skin disorders (4 sources)Seborrheic keratosis; Translations: [Other seborrheic keratosis] 21-32-7464XqqygihvMxnef skin disorders (8 sources)Actinic keratosis; Translations: [Actinic keratosis]05-26-2024 EpisodicOther skin disorders (2 sources)Inflamed seborrheic keratosis; Translations: [Inflamed seborrheic keratosis]37-32-4284CwriltelKyunn upper respiratory disease (1 source)Unspecified voice and resonance disorder; Translations: [UNS VOICE AND RESONANCE DISORDER]Onset: 44-93-7037StxdhmfoYpviqkwoxt and visceral atherosclerosis (2 sources)Arteriosclerotic vascular catlssb87-05-7982PpfyrphFmfokqcjih arthritis and related disease (2 sources)Rheumatoid arthritis; Translations: [Rheumatoid arthritis, unspecified]82-09-8284GlmzpmsJoahimzam malignancies (20 sources)Secondary malignant neoplasm of lymph nodes of neck; Translations: [Secondary and unspecified malignant neoplasm of lymph nodes of head, face and neck]Onset: 800077-20-5381YwipswtKrrpwkwzq malignancies (2 sources)Metastasis to head and neck lymph node; Translations: [Secondary and unspecified malignant neoplasmof lymph nodes of head, face and neck]08-31-2024 ChronicSpondylosis; intervertebral disc disorders; other back problems (20 sources)Cervical spondylosis without myelopathy; Translations: [Spondylosis without myelopathy or radiculopathy, cervical region]Onset: ChronicSpondylosis; intervertebral disc disorders; other back problems (10 sources)Torticollis; Translations: [Torticollis]43-09-0091AxzahrfqUgefgbt disorders (7 sources)Iodine-deficiency related diffuse (endemic) goiter; Translations: [Acquired hypothyroidism]Onset: 84-11-3791DqrusooUnwipnjoksnb (1 source)CONTACT W/AND (SUSP) EXPOS COVID-19; Translations: [CONTACT W/AND (SUSP) EXPOS COVID-19]Onset: 08-01-2022 Past or Other Problems Problem ClassificationProblemDateDocumented DateEpisodic/ChronicCancer of colon (20 sources)History of malignant neoplasm of colon; Translations: [Personal history of other malignant neoplasmof large intestine]Onset: 06-13-2022 Resolved: 02-30-8456QydvndwdHfguimeu mellitus without complication (20 sources)Type 2 diabetes mellitus; Translations: [Type 2 diabetes mellitus without complications]Onset: 02-27-2022 Resolved: 118898-27-0065VtrwfsnXrxmt disorders and dislocations; trauma-related (20 sources)Dislocation of acromioclavicular joint; Translations: [Unspecified dislocation of right acromioclavicular joint, initial encounter]Onset: 253469-56-0063BnmhhdodVjfr disorders (20 sources)Mood disordersOnset: 474259-44-4971Funqaxsnsog deficiencies (20 sources)Vitamin D deficiency; Translations: [Vitamin D deficiency, unspecified]Onset: 01-15-2023 Resolved: 957337-09-2905FsugjtuVmfid and unspecified benign neoplasm (20 sources)History of polyp of colon; Translations: [Personal history of colonic polyps]Onset: 06-13-2022 Resolved: 78-06-5671KanadsuhEfdlm circulatory disease (20 sources)Raynaud's disease; Translations: [Raynaud's syndrome without gangrene]Onset: 01-15-2023 Resolved: 639844-14-9679TmmltyqUyidn connective tissue disease (20 sources)Diastasis recti; Translations: [Separation of muscle (nontraumatic), other site]Onset: 01-15-2023 Resolved: 910619-62-6693FoznqucgOrufa connective tissue disease (20 sources)Muscle spasm of cervical muscle of neck; Translations: [Other muscle spasm]Onset: 993448-28-8014PtwxiloiMsnuh lower respiratory disease (1 source)Other nonspecific abnormal finding of lung field; Translations: [Lung nodules]Onset: 70-09-7349StkvejagHsgzc male genital disorders (20 sources)Disorder of prostate; Translations: [Disorder of prostate, unspecified]Onset: 01-15-2023 Resolved: 748836-91-8478DbqusqseCehtz male genital disorders (1 source)Disorder of prostate, unspecified; Translations: [DISORDER OF PROSTATE UNSPECIFIED]Onset: 63-18-9350EhezacpqYpkti non-epithelial cancer of skin (20 sources)Basal cell carcinoma of face; Translations: [Basal cell carcinoma of skin of unspecified parts of face]Onset: 12-15-2022 Resolved: 412416-65-5592BetmpckkOspzc non-traumatic joint disorders (20 sources)Pain in right shoulder; Translations: [Pain in joint, shoulder region]Onset: 12-15-2022 Resolved: 923061-90-3116XbshrfyhJfgfp nutritional; endocrine; and metabolic disorders (20 sources)Disorder of carbohydrate metabolism; 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, unspecified]Onset: 01-15-2023 Resolved: 097800-59-9563LpbbtusEbiuy nutritional; endocrine; and metabolic disorders (20 sources)Overweight; Translations: [Overweight]Onset: 12-15-2022 Resolved: 373483-86-3160BdzqprdqCpovj skin disorders (20 sources)Lesion of face; Translations: [Disorder of the skin and subcutaneous tissue, unspecified]Onset: 069704-56-9161DtkwzkfcElukvrw disorders (2 sources)Disorder of thyroid gland; Translations: [Other specified disorders of thyroid]Onset: 011409-80-3928Uepxefhl Results Test NameValueInterpretationReference RangeFacilityOffice Visiton 05-11-2025 Follow-up [id number] Manish Root 1945 M Date Provider Department Center 05/11/2025 Daniela-YODIT TIFFANI CARD Bull [facility] Family History Family Status - Relation Status Age at Mother Unknown Father Unknown Level of Service:93600 SD OFFICE/OUTPATIENT NEW MODERATE MDM 45 MINUTES Reason for Visit and Comments: New Patient [632] - Patient is here today to establish care with cardilolgy. Patient was recently in the hospital for A-Fib seen at [facility] ER. Patient also need surgery clearance, For left hip replacement. Patient chest pain, SOB/BUTT, palpitations/racing heart, fatigue, dizziness/lightheaded Atrial Fibrillation [80] Coronary Artery Disease [187] Hypertension [604112] Hyperlipidemia [182] Raynaud's [Other]NormalBlanchard Valley Health SystemOrders Onlyon 48-38-5299Dhlaau [id number] Manish Root 1945 M Date Provider Department Center 05/11/2025 VANESSA TRIANA ALEX Gottlieb [facility] Family History Family Status - Relation Status Age at Mother Unknown Father UnknownNormalUniversCincinnati Shriners HospitalErroneous Telephone Encounteron [id number] Telephone [id number] Manish Root 1945 M Date Provider Department Center 05/07/2025 [id number] SOTO [facility] No family history on file Reason for Visit and Comments: Error (VOID this visit) [77]NormalUnOhioHealth Arthur G.H. Bing, MD, Cancer CenterCNOVon 84-87-8603WHQBGhlkdc Visit (RADCAROLAA) MANISH ROOT ([id number]) 1945 M Date Time Provider Department 05/06/25 10:30 AM Yordan FELIZ During your visit today, we recorded the following information about you: Yordan Feliz MD 05/13/2025 9:30 AM Signed Radiation Oncology - Follow Up [...] without significant limitations. LABORATORY: Latest Reference Range AND Units 04/29/25 09:13 Sodium 136 - 144 [...] 8 - 15 mmol/L 13 eGFR >=60 mL/min/1.73m? 70 TSH 0.270 - 4.200 mIU/L 2.760 [...] Lymph 1.00 - 4.00 k/uL 0.58 (L) Augusta% % 7.8 Abs Augusta <0.87 k/uL 0.46 Eosin% % 1.4 Abs Eosin <0.46 k/uL 0.08 Baso% % 0.9 Abs Baso <0.11 k/uL 0.05 Immature Gran % % 0.9 IMMATURE GRANS (ABS) <0.10 k/uL 0.05 NRBC /100 WBC 0.0 Absolute nRBC <0.01 k/uL <0.01 (H): Data is abnormally high (L): Data is abnormally low Latest Reference Range AND Units 10/23/23 10:52 [...] Date Value 04/29/2025 255 Latest Reference Range AND Units 10/16/23 10:46 [...] Lymph 1.00 - 4.00 k/uL 0.48 (L) Augusta% % 10.4 Abs Augusta <0.87 k/uL 0.32 Eosin% % 1.6 Abs [...] No evidence of abnormal lymph nodes. CT Ch (more content not included)...NormalLake County Memorial Hospital - WestCNOVSPon 15-12-0664LSGGGOKatkn (SP) Office ([place]) MANISH ROOT ([id number]) 1945 M Date Time Provider Department 05/06/25 10:00 AM JOHN ENGLAND During your visit today, we recorded the following information about you: Temperature Pulse Respiration Blood pressure 97.8 degrees 68/minute 16/minute 108/53 Weight Height 90.8 kg 1.669 m John England MD 05/06/2025 7:37 PM Signed NAME: Manish Root [facility] NO.: [id number] DATE OF SERVICE: May 06, 2025 (Jacquelyn) Some elements in this clinic note that are critical to medical decision making have been carefully reviewed and included from a prior clinic note dated: November 04, 2024 (Jacquelyn). Referring Provider: Dr. Татьяна Feliz Additional Clinicians [...] prior to proceeding with hip replacement surgery. - CASE HISTORY: Reverse Chronological Order 04/29/2025 - CT Neck AND Chest: Neck: * Stable posttreatment changes as detailed. No significant other enhancing lesion suggest recurrent or residual disease. * No enlarged lymph node in the neck, by CT size criteria Chest: * Stable CT of the chest. No findings to suggest new intrathoracic metastatic disease. * No evidence of bulky intrathoracic lymphadenopathy. 10/28/2024 - CT Neck AND Chest: Neck: [...] lower lobe which was not clearly seen (more content not included)...Normal[facility] W Auto Differential panel (Bld)on 67-48-7733Izcgosjue (Bld) [#/Vol]0.05 10*3/uLNormal <0.11CFirelands Regional Medical [facility] on above:Order Comment: Specimen Type: BLOOD SPECIMENOrdering Facility: [facility] Address:[address] [place], [place] [address]Ekamyvoig By: #### 90666-0 ####[facility] LABCLIA [id number] [place] [address] Basophils/100 WBC (Bld)0.9 %NormalKindred Hospital Dayton on above: Order Comment: Specimen Type: BLOOD SPECIMENOrdering Facility: [facility] Address:[address] [place], [place] [address]Performed By: #### 44797- 8 ####[facility] LABCLIA [id number] [place], [place] [address]Gvydvtzdpwxp cell count method Nom (Bld)AutoNormal [facility] on above:Order Comment: Specimen Type: BLOOD SPECIMENOrdering Facility: [facility] Address:[address] [place], [place] [address]Performed By: #### 57078-7 ####[facility] LABCLIA [id number] [place], [place] [address]Wxilkxgnkok (Bld) [#/Vol]0.08 10*3/uLNormal<0.46[facility] on above: Order Comment: Specimen Type: BLOOD SPECIMENOrdering Facility: [facility] Address:[address] [place], [place] [address]Performed By: #### 97637- 8 ####[facility] LABIA [id number] [place], [place] [address]Leebxbczmcs/100 WBC (Bld)1.4 %NormalKindred Hospital Dayton on above:Order Comment: Specimen Type: BLOOD SPECIMENOrdering Facility: [facility] Address:[address] [place], [place] [address]Performed By: #### 54022-1 ####[facility] LABIA [id number] [place], [place] [address]Wqsdnnkwrdu distribution width (RBC) [Ratio]14.5 %Tgnizw25.5-15.0[facility] on above: Order Comment: Specimen Type: BLOOD SPECIMENOrdering Facility: [facility] Address:[address] [place], [place] [address]Performed By: #### 97622- 8 ####[facility] LABIA [id number] [place], [place] [address]Obetzsqboh (Bld) [Volume fraction]40.3 %Pxnest59.0-51.0 [facility] on above:Order Comment: Specimen Type: BLOOD SPECIMENOrdering Facility: [facility] Address:[address] [place], [place] [address]Performed By: #### 60362-1 ####[facility] LABIA [id number] [place], [place] [address]Mroguyjusq (Bld) [Mass/Vol]13.2 g/pGAqkrfo85.0-17.0[facility] on above: Order Comment: Specimen Type: BLOOD SPECIMENOrdering Facility: [facility] Address:[address] [place], [place] [address]Performed By: #### 49615- 8 ####[facility] LABIA [id number] [place], [place] [address]Tvistavp granulocytes (Bld) [#/Vol]0.05 10*3/uLNormal <0.10[facility] on above:Order Comment: Specimen Type: BLOOD SPECIMENOrdering Facility: [facility] Address:[address] [place], [place] [address]Performed By: #### 39541-8 ####[facility] LABIA [id number] [place], [place] [address]Zooqbqny granulocytes/100 WBC (Bld)0.9 %NormalKindred Hospital Dayton on above: Order Comment: Specimen Type: BLOOD SPECIMENOrdering Facility: [facility] Address:[address] [place], [place] [address]Performed By: #### 90699- 8 ####[facility] LABIA [id number] [place], [place] [address]Enbmdtrsyog (Bld) [#/Vol]0.58 10*3/uLLow1.00-4.00 [facility] on above:Order Comment: Specimen Type: BLOOD SPECIMENOrdering Facility: [facility] Address:[address] [place], [place] [address]Performed By: #### 16279-5 ####[facility] LABCLIA [id number] [place], [place] [address]Hmjjumienbe/100 WBC (Bld)9.9 %NormalKindred Hospital Dayton on above:Order Comment: Specimen Type: BLOOD SPECIMENOrdering Facility: [facility] Address:[address] [place], [place] [address]Performed By: #### 02059-8 ####[facility] LABCLIA [id number] [place], [place] [address]YXG (RBC) [Entitic mass]29.3 tdGexlmp81.0-34.0[facility] on above:Order Comment: Specimen Type: BLOOD SPECIMENOrdering Facility: [facility] Address:[address] [place], [place] [address]Performed By: #### 61388-1 ####[facility] LABCLIA [id number] [place], [place] [address]QGET (RBC) [Mass/Vol]32.8 g/wWLyldph78.5-36.0[facility] on above: Order Comment: Specimen Type: BLOOD SPECIMENOrdering Facility: [facility] Address:[address] [place], [place] [address]Performed By: #### 80416- 8 ####[facility] LABCLIA [id number] [place], [place] [address]YML (RBC) [Entitic vol]89.6 dDLdtgsr54.0-100.0[facility] on above:Order Comment: Specimen Type: BLOOD SPECIMENOrdering Facility: [facility] Address:[address] [place], [place] [address]Performed By: #### 40636-6 ####[facility] LABIA [id number] [place], [place] [address]Bksghhbrc (Bld) [#/Vol]0.46 10*3/uLNormal<0.87[facility] on above:Order Comment: Specimen Type: BLOOD SPECIMENOrdering Facility: [facility] Address:[address] [place], [place] [address]Performed By: #### 77799- 8 ####[facility] LABCLIA [id number] [place], [place] [address]Ruqgohnzc/100 WBC (Bld)7.8 %NormalKindred Hospital Dayton on above:Order Comment: Specimen Type: BLOOD SPECIMENOrdering Facility: [facility] Address:[address] [place], [place] [address]Performed By: #### 33253-8 ####[facility] LABCLIA [id number] [place], [place] [address]Cpfkllaueqm (Bld) [#/Vol]4.66 10*3/uLNormal1.45-7.50[facility] on above:Order Comment: Specimen Type: BLOOD SPECIMENOrdering Facility: [facility] Address:[address] [place], [place] [address]Performed By: #### 34543-7 ####[facility] LABCLIA [id number] [place], [place] [address]Ddxbkmifxjb/100 WBC (Bld)79.1 %NormalKindred Hospital Dayton on above:Order Comment: Specimen Type: BLOOD SPECIMENOrdering Facility: [facility] Address:[address] [place], [place] [address]Performed By: #### 18559-9 ####[facility] LABIA [id number] [place], [place] [address]Mfixnbuec RBC (Bld) [#/Vol] 10*3/uLNormal<0.01[facility] on above:Order Comment: Specimen Type: BLOOD SPECIMENOrdering Facility: [facility] Address:[address] [place], [place] [address]Performed By: #### 86082-2 ####[facility] LABCLIA [id number] [place], [place] [address]Vtyyimrmy RBC/100 WBC (Bld) [Ratio]0.0 /100 WBCNormal [facility] on above:Order Comment: Specimen Type: BLOOD SPECIMENOrdering Facility: [facility] Address:[address] [place], [place] [address]Performed By: #### 35029-7 ####[facility] LABCLIA [id number] [place], [place] [address]Wdxdhgnr mean volume (Bld) [Entitic vol]9.8 fLNormal9.0-12.7CFirelands Regional Medical Center South Campus on above:Order Comment: Specimen Type: BLOOD SPECIMENOrdering Facility: [facility] Address:[address] [place] [address] Performed By: #### 06628-5 ####[facility] LABCLIA [id number] [place], [place] [address]Hmmsyhkos (Bld) [#/Vol]255 10*3/gUVikefv591-208FuqysllpjKindred Hospital Dayton on above:Order Comment: Specimen Type: BLOOD SPECIMENOrdering Facility: [facility] Address:[address] [place], [place] [address]Performed By: #### 96416-8 ####[facility] LABCLIA [id number] [place], [place] [address]WFM (Bld) [#/Vol]4.50 10*6/uLNormal4.20-6.00[facility] on above:Order Comment: Specimen Type: BLOOD SPECIMENOrdering Facility: [facility] Address:[address] [place], [place] [address]Performed By: #### 75044-8 ####[facility] LABCLIA [id number] [place], [place] [address]FRW (Bld) [#/Vol]5.88 10*3/uLNormal3.70-11.00[facility] WestCommunson healthcare [facility] on above: Order Comment: Specimen Type: BLOOD SPECIMENOrdering Facility: [facility] Address:[address] [place], [place] [address]Twebkxaeb By: #### 52904- 8 ####[facility] LABCLIA [id number] [place], [place] [address]PTU APTTon 72-59-2828uEDK Coag (Bld) [Time]29.8 sNOMS HealthcareCCF CMP (CMP) (FOR REMOTE [facility] USE)on 73-82-4298Tjcbkmy [Mass/Vol]3.8 g/dL3.4 - 5.0 g/dLNOMS HealthcareALBUMIN GLOBULIN RATIO1.0NOPR HealthcareALP [Catalytic activity/Vol]104 U/L46 - 116 U/LNOMS [...] 2NOMS HealthcareGlobulin (S) [Mass/Vol]3.9 g/dLNOMS HealthcareGlucose [Mass/Vol]222 mg/aEIvhr26 - 106 mg/dLNOMS HealthcareInterpretation and review of laboratory resultsAbnormalNOMS HealthcarePotassium [Moles/Vol]4.1 mmol/L3.5 - 5.1 mmol/L NOMS HealthcareProtein [Mass/Vol]7.7 g/dL6.4 - 8.2 g/dLNOMS HealthcareSodium [Moles/Vol]139 mmol/L136 - 145 mmol/LNOMS HealthcareTBH EGFR-NON AF EXDJIAME17 Low>=60 mL/min/1.73m 2NOMS HealthcareUrea nitrogen [Mass/Vol]16.0 mg/dL7.0 - 18.0 mg/dLNOMS HealthcareUrea nitrogen/Creatinine [Mass ratio]13.6 mg/mgNOMS HealthcareCLINISYNCNOMS HealthcareCT CHEST W IVCONon 47-64-0081BU CHEST W IVCON* * *Final Report* * * DATE OF EXAM: Apr 29 2025 10:27AM [facility] 0539 - CT CHEST W IVCON [...] any questions regarding this interpretation, please call [phone]. If you are unable to reach us at the number above, please feel free to contact [facility] eRadiology at [phone]. [id number]_IDCSIACNNormalParkwood Hospital NECK SOFT TISSUE W IVCONon 32-14-0251XD NECK SOFT TISSUE W IVCON* * *Final Report* * * DATE OF EXAM: Apr 29 2025 10:27AM [facility] 0013 - CT NECK SOFT [...] any questions regarding this interpretation, please call [phone]. If you are unable to reach us at the number above, please feel free to contact [facility] eRadiology at [phone]. [id number] County Memorial Hospital - WestComprehensive metabolic 2000 panelon 23-63-7617Wqxejwx [Mass/Vol]4.2 g/dLNormal3.9-4.9CFirelands Regional Medical Center [facility] Campus on above:Order Comment: Specimen Type: BLOOD SPECIMENOrdering Facility: [facility] Address:[address] [place], [place] [address]Performed By: #### 42156-8 ####[facility]ANKITAUNIV[facility] LABCLIA [id number] [facility] [place] [place] [address]YIC [Catalytic activity/Vol]95 U/KNjbcdw38-362XvoafpyxcKindred Hospital Dayton on above:Order Comment: Specimen Type: BLOOD SPECIMENOrdering Facility: [facility] Address:[address] [place], [place] [address]Performed By: #### 50588-8 ####ILIAILJERMAINE [facility] LABCLIA [id number] MIKHAIL PAYNEHONORHEALTH SCOTTSDALE OSBORN [place] [address]IWS [Catalytic activity/Vol]17 U/JYmmnhk21-45ChtcdfklfKindred Hospital Dayton on above:Order Comment: Specimen Type: BLOOD SPECIMENOrdering Facility: [facility] Address:[address] [place], [place] [address]Performed By: #### 31022-0 ####ILIAILJERMAINE [facility] LABCLIA [id number] MIKHAIL OLVERAJEEVANHONORHEALTH SCOTTSDALE OSBORN MEDICAL CENTERRENETTAEAST [place], [place] [address]Nfibv gap [Moles/Vol]13 mmol/LNormal8-15[facility] on above:Order Comment: Specimen Type: BLOOD SPECIMENOrdering Facility: [facility] Address:[address] [place], [place] [address]Performed By: #### 24957- 8 ####[facility]IAILJERMAINE [facility] LABCLIA [id number] [place] [address]BFJ [Catalytic activity/Vol]15 U/ZAqbdal82-12LiudyuqxvKindred Hospital Dayton on above:Order Comment: Specimen Type: BLOOD SPECIMENOrdering Facility: [facility] Address:[address] [place], [place] [address]Performed By: #### 32285-4 ####[facility]AVIORAL HEALTHJERMAINE [facility] LABCLIA [id number] [facility]ST HOSPITALSHARMILA OLVERAJEEVANHONORHEALTH SCOTTSDALE OSBORN MEDICAL CENTERRENETTAEAST [place], [place] [address]Jecufoxos [Mass/Vol]0.5 mg/dLNormal0.2-1.3CFirelands Regional Medical [facility] on above:Order Comment: Specimen Type: BLOOD SPECIMENOrdering Facility: [facility] Address:[address] [place], [place] [address]Performed By: #### 84078- 8 ####[facility] LABCLIA [id number] [facility] [place], [place] [address]Dhknyld [Mass/Vol]10.2 mg/dLNormal8.5-10.2CFirelands Regional Medical Center [facility] Campus on above:Order Comment: Specimen Type: BLOOD SPECIMENOrdering Facility: [facility] Address:[address] [place], [place] [address]Performed By: #### 13720-7 ####[facility] LABCLIA [id number] [facility]ANTIAM HOSPITALJEEVAND[place], [place] [address]Ifqxoguj [Moles/Vol]103 mmol/CEvstfl90-529IagupawazKindred Hospital Dayton on above: Order Comment: Specimen Type: BLOOD SPECIMENOrdering Facility: [facility] Address:[address] [place], [place] [address]Performed By: #### 76043- 8 ####[facility] LABCLIA [id number] [place], [place] [address]ND2 [Moles/Vol]26 mmol/OPmbpmx62-51SjotfsgslKindred Hospital Dayton on above:Order Comment: Specimen Type: BLOOD SPECIMENOrdering Facility: [facility] Address:[address] [place], [place] [address]Performed By: #### 60581-2 ####[facility] LABCLIA [id number] [place], [place] [address]Pouvdeumdg [Mass/Vol]1.07 mg/dL Normal0.73-1.22[facility] on above:Order Comment: Specimen Type: BLOOD SPECIMENOrdering Facility: [facility] Address:[address] [place], [place] [address]Performed By: #### 68009-7 ####[facility] LABCLIA [id number] [facility]STOFERMEMORIAL [facility] [place], [place] [address]dMGVbt SerPlBld CKD-EPI 410938 mL/min/1.73m???Normal>=60 [facility] on above:Order Comment: Specimen Type: BLOOD SPECIMENOrdering Facility: [facility] Address:[address] [place], [place] [address]Avibcp Comment: Estimated Glomerular Filtration Rate (eGFR) is calculated using the 2020 CKD-EPI creatinine equation. This equation utilizes serum creatinine, sex, and age as parameters. The creatinine assay has traceable calibration to isotope dilution-mass spectrometry. Refer to KDIGO guidelines for clinical interpretation. In patients with unstable renal function, e.g. those with acute kidney injury, the eGFR may not accurately reflect actual GFR.Performed By: #### 74307-2 ####[facility] LABCLIA [id number] [place], [place] [address]Azciwep [Mass/Vol]198 mg/cUCkux94-70OisqlbtxdKindred Hospital Dayton on above:Order Comment: Specimen Type: BLOOD SPECIMENOrdering Facility: [facility] Address:[address] [place] [address]Dxqtoa Comment: The [place] Diabetes Association (ADA) provides guidance for cutoff [...] Standards of Medical Care in Diabetes 2016, [place] [employer] Association. Diabetes Care. 2016.39(Suppl 1).Performed By: #### 19316-7 ####[facility] LABCLIA [id number] [place], [place] [address]Cpocvjwys [Moles/Vol]4.5 mmol/LNormal3.7-5.1CFirelands Regional Medical Center South Campus on above:Order Comment: Specimen Type: BLOOD SPECIMENOrdering Facility: [facility] Address:[address] [place], [place] [address]Teualmtny By: #### 22058-3 ####[facility] LABCLIA [id number] [place], [place] [address]Ysxvpvt [Mass/Vol]7.1 g/dLNormal6.3-8.0[facility] on above:Order Comment: Specimen Type: BLOOD SPECIMENOrdering Facility: [facility] Address:[address] [place], [place] [address]Performed By: #### 00465- 8 ####[facility] LABCLIA [id number] [place], [place] [address]Dghzka [Moles/Vol]142 mmol/AJwcpne332-823AkiiayxlzKindred Hospital Dayton on above:Order Comment: Specimen Type: BLOOD SPECIMENOrdering Facility: [facility] Address:[address] [place], [place] [address]Performed By: #### 90661-0 ####[facility] LABCLIA [id number] [place], [place] [address]Oxml nitrogen [Mass/Vol]17 mg/dLNormal9-24[facility] on above:Order Comment: Specimen Type: BLOOD SPECIMENOrdering Facility: [facility] Address:[address] [place], [place] [address]Performed By: #### 70969-6 ####[facility] LABCLIA [id number] [place], [place] [address]MRQ 12-LEADon 51-55-3832[place]yd[place] [address] Electrocardiograph Report Signed Patient: MANISH ROOT MR#: [id number] : 1945 Acct:[id number] Age/Sex: 79 / M ADM Date: 04/29/25 Loc: LAB Attending Dr: Mechelle Boyer D.O. Ordering Physician: Mechelle Boyer D.O. 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 Measurements Intervals Dumont Rate: 84 P: SD: QRS: -10 QRSD: [...] SCHMIDT Signed By: 04/29/25191904/29/251919 DD/ 1239 TD/TT: American History Teacher:TBHRadiology, Radiologist, - 04/29/2025 [place] [address] Electrocardiograph Report Signed Patient: MANISH ROOT MR#: [id number] : 1945 Acct:[id number] Age/Sex: 79 / M ADM Date: 04/29/25 Loc: LAB Attending Dr: Mechelle Boyer D.O. Ordering Physician: Mechelle Boyer D.O. 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 Measurements Intervals Dumont Rate: 84 P: SD: QRS: -10 QRSD: [...] SCHMIDT Signed By: 04/29/25191904/29/251919 DD/ 1239 TD/TT: American History Teacher: QUIANA HealthcareRadiology Study observation (narrative)NOMS HealthcareECG 12-LEAD Ordered By: Radiologist Radiology on 08-07-0526JMGL Healthcare Work Phone: No Panel Informationon 53-01-5294ARXRYHLDCESNR HealthcareSRMCOH PROTHROMBIN TIME INR W/O COUMon 69-89-4089NS Coag (PPP) [Time] 11.3 sNOMS HealthcareREVERE MEMORIAL [facility] INR1.07NOPR HealthcareComment on above:DESIRED INR: 2.0-3.0 CONDITIONS NOT LISTED BELOW 2.5-3.5 FOR PROSTHETIC HEART VALVE REPLACEMENT 2.5-3.5 RECURRENT THROMBOSIS TSH SerPl-aCncon 82-22-4239WKV Qn2.760 m[IU]/LNormal0.270-4.200[facility] - WestComment on above:Order Comment: Specimen Type: BLOOD SPECIMENOrdering Facility: [facility] Address:[address] [place], [place] [address]Performed By: #### 3016-3 ####[facility] LABCLIA [id number] [address] STATES OF LUTHERAN HOSPITALUrine Cultureon 96-41-6927Jktpudxx identified Cx Nom (U)No Growth 2 Days PERFORMED BY: [address] [place] [address] PATHOLOGIST REAL ESTATE CLERK INESSA AREVALO M.D.NormalThe [facility] Physician GroupComment on above: Performed By: #### CUU #### [address] [address] USAXR Hip - left Single viewon 66-30-6288YkbDouglass, [place] [address] XRay Report Signed Patient: MANISH ROOT MR#: [id number] : 1945 Acct:[id number] Age/Sex: 79 / M ADM Date: 04/29/25 Loc: LAB Attending Dr: Mechelle Boyer D.O. Ordering Physician: Mechelle Boyer D.O. Date of Service: 04/29/25 Procedure(s): XR hip LT 1V w/ pelvis Accession Number(s): [id number] cc: MASON JOHNSON ; Mechelle Boyer D.O. The [address] [address] Patient Name: MANISH ROOT MRN: [id number] date: 1945 Sex: M Assigned Patient Location: LAB Current Patient Location: LAB Accession/Order Number: [id number] Exam Date: 04/29/2025 12:41 Report Date: 04/29/2025 [...] Rosales M.D. 04/29/2025 6:23 PM Dictation Location: [place] [address] Electronically authenticated by: [id number] Y Date: 04/29/2025 18:23 Dictated By: Hernandez Rosales M.D. Signed By: 04/29/251824 DD/ 22 TD/TT: American History Teacher:OMARHRadiology, Radiologist, - 04/30/2025 The [place] [id number] XRay Report Signed Patient: MANISH ROOT MR#: [id number] : 1945 Acct:[id number] Age/Sex: 79 / M ADM Date: 04/29/25 Loc: LAB Attending Dr: Mechelle Boyer D.O. Ordering Physician: Mechelle Boyer D.O. Date of Service: 04/29/25 Procedure(s): XR hip LT 1V w/ pelvis Accession Number(s): [id number] cc: MASON JOHNSON ; Mechelle Boyer D.O. [place] [address] Patient Name: MANISH ROOT MRN: [id number] date: 1945 Sex: M Assigned Patient Location: LAB Current Patient Location: LAB Accession/Order Number: [id number] Exam Date: 04/29/2025 12:41 Report Date: 04/29/2025 [...] Rosales M.D. 04/29/2025 6:23 PM Dictation Location: [place] [address] Electronically authenticated by: [id number] Y Date: 04/29/2025 18:23 Dictated By: Hernandez Rosales M.D. Signed By: 04/29/251824 DD/ 22 TD/TT: [employer] History Teacher: QU[facility] HealthcareRadiology Study observation (narrative)NOMJanell HealthcareXR Hip - left Single viewOrdered By: Radiologist Radiology on [id number] Work Phone: XR Hip - left 3 Viewson [id number] Result: Multiple views of left hip showed [...] severe degenerative joint disease, [facility] HealthcareRadiology Study observation (narrative)NOMS HealthcareALBUMIN, RANDOM URINE W/CREATININEon 03-27-2025 ALBUMIN, URINE0.8 mg/dLNormalSee Note:[facility] DiagnosticsComment on above:Result Comment: Reference Range: Reference Range Not establishedPerformed By: #### 6517, 7600, [id number] #### [facility] [place] [address] [employer] [place]: Maged Olson MDALBUMIN/CREATININE RATIO, RANDOM URINE11 mg/g [...] a diagnostic category.Performed By: #### 6517, 7600, 77212 #### [facility] [place] [address] [employer] [place]: Maged FORDreatinine (U) [Mass/Vol]71 mg/fEJvosds30-578 [facility] DiagnosticsComment on above:Performed By: #### 6517, 7600, 23003 #### [facility] [place] [address] [employer] Water Well: Maged Olson [facility] SULPHUROMPREHENSIVE METABOLIC PANELon 03-27-2025 Albumin [Mass/Vol]4.0 g/dLNormal3.6-5.1Quest DiagnosticsComment on above: Performed By: #### 6517, 7600, 60461 #### [facility] [address], [address] [place] [address] Acidizer Water Well: Maged Olson MDAlbumin/Globulin [Mass ratio]1.6 {ratio}Normal 1.0-2.5Quest DiagnosticsComment on above:Performed By: #### 6517, 7600, 47689 #### [facility] of [address], [address] [place] [address] Acidizer Water Well: Maged Olson MDALP [Catalytic activity/Vol]73 U/SOnnqar00-101 Quest DiagnosticsComment on above:Performed By: #### 6517, 7600, 34472 #### [facility] of [address], [address] [place] [address] Acidizer Water Well: Maged Olson MDALT [Catalytic activity/Vol]49 U/LHigh9-46 Quest DiagnosticsComment on above:Performed By: #### 6517, 0, 64695 #### [facility] of [address], [address] [place] [address] Acidizer Water Well: Maged Olson MDAST [Catalytic activity/Vol]29 U/JLhvrqp81-38 Quest DiagnosticsComment on above:Performed By: #### 6517, 7600, 74459 #### [facility] of [address], [address] [place] [address] Acidizer Water Well: Maged Olson MDBilirubin [Mass/Vol]1.0 mg/dLNormal0.2-1.2 Quest DiagnosticsComment on above:Performed By: #### 6517, 7600, 42026 #### [facility] of [address], [address] [place] [address] Acidizer Water Well: Maged Olson MDCalcium [Mass/Vol]9.1 mg/dLNormal8.6-10.3Quest DiagnosticsComment on above:Performed By: #### 6517, 7600, 57998 #### [facility] of [address], [address] [place] [address] Acidizer Water Well: Maged FORDhloride [Moles/Vol]102 mmol/CDcqnxo35-449 Quest DiagnosticsComment on above:Performed By: #### 6517, 7600, 51930 #### [facility] [address], [address] [place] [address] Acidizer Water Well: Maged Olson MDCO2 [Moles/Vol]27 mmol/ZPmwudg28-35Zzoti DiagnosticsComment on above:Performed By: #### 6517, 7600, 48212 #### [facility] of [address], [address] [place] [address] Acidizer Water Well: Maged FORDreatinine [Mass/Vol]1.28 mg/dLHigh0.70-1.22 Quest DiagnosticsComment on above:Performed By: #### 65, 7599, 01858 #### [facility] [address], [address] [place] [address] Acidizer Water Well: Maged Olson MDGFR/1.73 sq M.predicted among non-blacks MDRD (S/P/Bld) [Vol rate/Area]56 mL/min/{1.73_m2}Low> OR = 60Quest DiagnosticsComment on above:Performed By: #### 6517, 7600, 59314 #### [facility] [place] [address] Acidizer Water Well: Maged Olson MDGlobulin (S) [Mass/Vol]2.5 g/dLNormal1.9-3.7 Quest DiagnosticsComment on above:Performed By: #### 6517, 7600, 92150 #### [facility] of [place] [address] Acidizer Water Well: Maged Olson MDGlucose [Mass/Vol]183 mg/nMNwla63-89Anhmv DiagnosticsComment on above:Result Comment: Fasting reference interval For someone without known diabetes, a glucose value >125 mg/dL indicates that they may have diabetes and this should be confirmed with a follow-up test.Performed By: #### 6517, 7600, 94390 #### [facility] of [address], [address] [place] [address] Acidizer Water Well: Maged Olson MDPotassium [Moles/Vol]4.3 mmol/LNormal3.5-5.3 Quest DiagnosticsComment on above:Performed By: #### 6517, 7600, 27459 #### [facility] of [address], [address] [place] [address] Acidizer Water Well: Maged Olson MDProtein [Mass/Vol]6.5 g/dLNormal6.1-8.1Quest DiagnosticsComment on above:Performed By: #### 6517, 7600, 63366 #### [facility] of [address], [address] [place] [address] Acidizer Water Well: Maged Olson MDSodium [Moles/Vol]139 mmol/TSnawca936-945Pzamh DiagnosticsComment on above:Performed By: #### 6517, 7600, 98151 #### [facility] of [address], [address] [place] [address] Acidizer Water Well: Maged Olson MDUrea nitrogen [Mass/Vol]17 mg/dLNormal7-25 Quest DiagnosticsComment on above:Performed By: #### 6517, 0, 40620 #### [facility] of [address], [address] [place] [address] Acidizer Water Well: Maged Olson MDUrea nitrogen/Creatinine [Mass ratio]13 mg/mg Normal6-22Quest DiagnosticsComment on above:Performed By: #### 6517, 7600, 27804 #### [facility] of [place] [address] Acidizer Water Well: Maged Olson MDLIPID PANEL, STANDARD 83-23-7230Cxtzggfssmb [Mass/Vol]152 mg/dLNormal<200Quest DiagnosticsComment on above:Order Comment: FASTING:YES FASTING: YESPerformed By: #### 6517, 7600, 43939 #### [facility] [address], [address] [place] [address] Acidizer Water Well: Maged FORDholesterol in HDL [Mass/Vol]54 mg/dLNormal> OR = 40Quest DiagnosticsComment on above:Order Comment: FASTING:YES FASTING: YESPerformed By: #### 6517, 7600, 19421 #### [facility] [address], [address] [place] [address] Acidizer Water Well: Maged FORDholesterol in LDL [Mass/Vol]82 mg/dLNormal Quest [...] LDL-C. Monroe GAN et al. TITI. 2013;310(19): 2169-9121 (http://education.[employer].Extenda-Dent/faq/COQ401)Performed By: #### 6517, 7600, 65078 #### [facility] [address], [address] [place] [address] Acidizer Water Well: Maged Dumont.total/Cholesterol in HDL [Mass ratio]2.8 {ratio}Normal<5.0Quest DiagnosticsComment on above:Order Comment: FASTING:YES FASTING: YESPerformed By: #### 6517, 7600, 89982 #### [facility] [address], [address] [place] [address] Acidizer Water Well: Maged WATERS HDL BLENSNKTZHA43 mg/dL (calc)Normal<130 Quest DiagnosticsComment on above:Order Comment: FASTING:YES FASTING: YESResult Comment: For patients with diabetes plus 1 major ASCVD risk factor, treating to a non-HDL-C goal of <100 mg/dL (LDL-C of <70 mg/dL) is considered a therapeutic option.Performed By: #### 6517, 7600, 66583 #### [facility] [address], [address] [place], [place] [address] Acidizer Water Well: Maged Olson MDTriglyceride [Mass/Vol]82 mg/dLNormal<150Quest DiagnosticsComment on above:Order Comment: FASTING:YES FASTING: YESPerformed By: #### 6517, 7600, 27380 #### [facility] [address], [address] [place], [place] [address] Acidizer Water Well: Maged Olson MDMR Hip - left WO contraston 77-14[place] [address] Magnetic Resonance Report Signed Patient: MANISH ROOT MR#: [id number] : 1945 Acct:[id number] Age/Sex: 79 / M ADM Date: 03/12/25 Loc: MRI Attending Dr: MASON JOHNSON Ordering Physician: MASON JOHNSON Date of Service: 03/12/25 Procedure(s): MR hip LT wo con Accession Number(s): [id number] cc: MASON JOHNSON [address] [address] Patient Name: MANISH ROOT MRN: [id number] date: 1945 Sex: M Assigned Patient Location: MRI Current Patient Location: MRI Accession/Order Number: [id number] Exam Date: 03/12/2025 10:00 Report Date: 03/12/2025 [...] Burnett M.D. 03/12/2025 3:44 PM Dictation Location: [place] [address] Electronically authenticated by: [id number] Y Date: 03/12/2025 15:44 Dictated By: El Burnett M.D. Signed By: 03/12/25 1546 DD/ 1544 TD/TT: American History Teacher:TBHRadiology, Radiologist, - 03/12/2025 [place] [address] Magnetic Resonance Report Signed Patient: MANISH ROOT MR#: [id number] : 1945 Acct:[id number] Age/Sex: 79 / M ADM Date: 03/12/25 Loc: MRI Attending Dr: MASON JOHNSON Ordering Physician: MASON JOHNSON Date of Service: 03/12/25 Procedure(s): MR hip LT wo con Accession Number(s): [id number] cc: MASON JOHNSON [place] [address] Patient Name: MANISH ROOT MRN: [id number] date: 1945 Sex: M Assigned Patient Location: MRI Current Patient Location: MRI Accession/Order Number: [id number] Exam Date: 03/12/2025 10:00 Report Date: 03/12/2025 [...] Burnett M.D. 03/12/2025 3:44 PM Dictation Location: [place] [address] Electronically authenticated by: [id number] Y Date: 03/12/2025 15:44 Dictated By: El Burnett M.D. Signed By: 03/12/25 1546 DD/ 1544 TD/TT: American History Teacher: QUIANA KerrRadiology Study observation (narrative)QUIANA KerrMR Hip - left WO contrastOrdered By: Radiologist Radiology on 60-60-0812ZQKT [employer] Work Phone: XR LUMBAR SPINE 2 OR 3Von 66-50-7116[place] [id number] XRay Report Signed Patient: MANISH ROOT MR#: [id number] : 1945 Acct:[id number] Age/Sex: 79 / M ADM Date: 12/28/24 Loc: RAD Attending Dr: MASON JOHNSON Ordering Physician: MASON JOHNSON Date of Service: 12/28/24 Procedure(s): XR lumbar spine 2-3V Accession Number(s): [id number] cc: MASON JOHNSON [place] [id number] Patient Name: MANISH ROOT MRN: [id number] date: 1945 Sex: M Assigned Patient Location: [facility] Current Patient Location: [facility] Accession/Order Number: [id number] Exam Date: 12/28/2024 16:30 Report Date: 12/28/2024 [...] Burnett M.D. 12/28/2024 4:31 PM Dictation Location: [place] [address] Electronically authenticated by: [id number] Y Date: 12/28/2024 16:31 Dictated By: El Burnett M.D. Signed By: 12/28/24 1634 DD/ 1631 TD/TT: American History Teacher:CIROadiologmadelyn, Radiologist, - 12/28/2024 [place] [address] XRay Report Signed Patient: MANISH ROOT MR#: [id number] : 1945 Acct:[id number] Age/Sex: 79 / M ADM Date: 12/28/24 Loc: [facility] Attending Dr: MASON JOHNSON Ordering Physician: MASON JOHNSON Date of Service: 12/28/24 Procedure(s): XR lumbar spine 2-3V Accession Number(s): [id number] cc: MASON JOHNSON [place] [id number] Patient Name: MANISH ROOT MRN: [id number] date: 1945 Sex: M Assigned Patient Location: [facility] Current Patient Location: [facility] Accession/Order Number: [id number] Exam Date: 12/28/2024 16:30 Report Date: 12/28/2024 [...] Burnett M.D. 12/28/2024 4:31 PM Dictation Location: [place] [address] Electronically authenticated by: [id number] Y Date: 12/28/2024 16:31 Dictated By: El Burnett M.D. Signed By: 12/28/24 1634 DD/ 1631 TD/TT: American History Teacher: [facility] HealthcareRadiology Study observation (narrative)[facility] HealthcareXR LUMBAR SPINE 2 OR 3VOrdered By: Radiologist Radiology on 97-34-2559[facility] Work Phone: aNA SCREEN, IFA, W/REFL [...] indicated. For additional information, please refer to http://education.[employer]/faq/LGS197 (This link is being provided for informational/ educational purposes only.)Performed By: #### 905, %63683, 809, 249 #### [facility] [place] [address] [facility], [address] [place] [address] Acidizer Water Well: Maged Olson MD #### 88927 #### [facility]/Sarah [facility] [address] [facility] [place] [address] Acidizer Water Well: Yassine Bonilla M.D.,PhDANTINUCLEAR ANTIBODIES TITER AND PATTERNon 07-02-7821URC PATTERNCytoplasmic, Polar/Golgi-likeAbnormalQuest DiagnosticsComment on above:Result Comment: Discontinuous speckled or granular perinuclear ribbon- like staining with polar distribution in the cytoplasm (e.g., anti-giantin, cwcl-npodxy-277). Pattern is rare in Sjogren's syndrome, systemic lupus erythematosus (SLE), rheumatoid arthritis, mixed connective disease, granulomatosis with polyangiitis (GPA), idiopathic cerebellar ataxia, paraneoplastic cerebellar degeneration, and viral infections. AC-22: Polar/Golgi-like International Consensus on RAFAEL Patterns (https://doi.org/10.1515/hyvb-0098-6481)Performed By: #### 905, %78231, 809, 249 #### [facility] [address], [address] [place] [address] Acidizer Water Well: Maged Olson MD #### 38104 #### [facility]/[place] [address] [facility] [place], [place] Acidizer Water Well: Yassine Bonilla M.D.,PhDANA TITER1:40HighQuest [facility] Comment on above:Result Comment: A low level RAFAEL titer may be present in pre-clinical autoimmune diseases and normal individuals. Reference Range <1:40 Negative 1:40-1:80 Low Antibody Level >1:80 Elevated Antibody LevelPerformed By: #### 905, %18323, 809, 249 #### [facility] [address], [address] [place] [address] Acidizer Water Well: Maged Olson MD #### 74899 #### [facility]/[place] [address] [facility] [place], [place] Acidizer Water Well: Yassine Bonilla M.D.,PhDC-REACTIVE PROTEINon 56-04-3910PSW [Mass/Vol]9.8 mg/LHigh<8.0Quest DiagnosticsComment on above:Performed By: #### 905, %06575, 809, 249 #### [facility] [address], [address] [place] [address] Acidizer Water Well: Maged Olson MD #### 57795 #### [facility]/[place] [address] [facility] [place], [place] Acidizer Water Well: Yassine Bonilla M.D.,PhDRHEUMATOID ARTHRITIS DIAGNOSTIC PANEL 3on 06-96-0048SUJZZA CITRULLINATED PEPTIDE (CCP) AB (IGG)<16Normal<20Quest DiagnosticsComment on above:Order Comment: FASTING:YES FASTING: YESResult Comment: Negative: <20 Weak Positive: 20 - 39 Moderate Positive: 40 - 59 Strong Positive: >59Performed By: #### 905, %99805, 809, 249 #### [facility] of [address], [address] [place], [place] [address] Acidizer Water Well: Maged Olson MD #### #### [facility]/[address] [place], [place] Acidizer Water Well: Yassine Bonilla M.D.,PhDRHEUMATOID FACTOR (IGA)<5Normal<=6 [facility]osticsComment on above:Order Comment: FASTING:YES FASTING: YESPerformed By: #### 905, %59307, 809, 249 #### [facility] of [address], [address] [place], [place] [address] Acidizer Water Well: Maged Olson MD #### #### [facility]/[address] [place], [place] Acidizer Water Well: Yassine Bonilla M.D.,PhDRHEUMATOID FACTOR (IGG)<5Normal<=6 [facility]osticsComment on above:Order Comment: FASTING:YES FASTING: YESPerformed By: #### 905, %51049, 809, 249 #### [facility] of [address], [address] [place], [place] [address] Acidizer Water Well: Maged Olson MD #### #### [facility]/[address] [place], [place] Acidizer Water Well: Yassine Bonilla M.D.,PhDRHEUMATOID FACTOR (IGM)<5Normal<=6 [facility]osticsComment on above:Order Comment: FASTING:YES FASTING: YESPerformed By: #### 905, %44529, 809, 249 #### [facility] of [address], [address] [place] [address] Acidizer Water Well: Maged Olson MD ### #### [facility]/[address] [place], [place] Acidizer Water Well: Yassine Bonilla M.D.,PhDSJOGREN'S ANTIBODY (SS-A)<1.0Normal [facility]osticsComment on above:Order Comment: FASTING:YES FASTING: YESResult Comment: Reference Range: < 1.0 NEG AIPerformed By: #### 905, %52770, 809, 249 #### [facility] of [address], [address] [place] [address] Acidizer Water Well: Maged Olson MD #### #### [facility]/[address] [place], [place] Acidizer Water Well: Yassine Bonilla M.D.,PhDSJOGREN'S ANTIBODY (SS-B)<1.0Normal [facility]osticsComment on above:Order Comment: FASTING:YES FASTING: YESResult Comment: Reference Range: < 1.0 NEG AIPerformed By: #### 905, %11250, 809, 249 #### [facility] of [address], [address] [place] [address] Acidizer Water Well: Maged Olson MD #### #### [facility]/[address] [place], [place] Acidizer Water Well: Yassine Bonilla M.D.,PhDSED RATE BY MODIFIED WESTERGRENon 73-14-8091LQF RATE BY MODIFIED WESTERGREN9 mm/hNormal< OR = 20[facility] Comment on above:Performed By: #### 905, %28681, 809, 249 #### [facility] of [address], [address] [place] [address] Acidizer Water Well: Maged Olson MD #### #### [facility]/[place] [address] [facility] [address] [place] Acidizer Water Well: Yassine Bonilla M.D.,PhDURIC ACIDon 30-46-2661Xdajl [Mass/Vol] 5.6 mg/dLNormal4.0-8.0Quest DiagnosticsComment on above:Result Comment: Therapeutic target for gout patients: <6.0 mg/dLPerformed By: #### 905, %94826, 809, 249 #### [facility] [address] [facility], [address] [place] [address] Acidizer Water Well: Maged Olson MD #### 19689 #### [facility]/[place] [address] [facility] [address] [place], [place] Acidizer Water Well: Yassine Bonilla M.D.,PhDLaboratory - Hematology and Cell countson 32-75-3213DsC0a (Bld) [Mass fraction]7.1 %[facility] HealthcareNo Panel Informationon 56-08-2367BWMU HealthcareXR Knee - left 3 Viewson 04-54-8920[address] [address] XRay Report Signed Patient: MANISH ROOT MR#: [id number] : 1945 Acct:[id number] Age/Sex: 79 / M ADM Date: 12/09/24 Loc: RAD Attending Dr: MASON JOHNSON Ordering Physician: MASON JOHNSON Date of Service: 12/09/24 Procedure(s): XR knee LT 3V Accession Number(s): [id number] cc: MASON JOHNSON [address] [address] Patient Name: MANISH ROOT MRN: [id number] date: 1945 Sex: M Assigned Patient Location: RAD Current Patient Location: RAD Accession/Order Number: [id number] Exam Date: 12/09/2024 13:17 Report Date: 12/09/2024 [...] Corea M.D. 12/09/2024 1:18 PM Dictation Location: [place] [address] Electronically authenticated by: [id number] Y Date: 12/09/2024 13:18 Dictated By: Mavis Corea M.D. Signed By: 12/09/24 1321 DD/ 1318 TD/TT: American History Teacher:TBHRadiology, Radiologist, MD - 12/09/2024 [place] [address] XRay Report Signed Patient: MANISH ROOT MR#: [id number] : 1945 Acct:[id number] Age/Sex: 79 / M ADM Date: 12/09/24 Loc: [facility] Attending Dr: MASON JOHNSON Ordering Physician: MASON JOHNSON Date of Service: 12/09/24 Procedure(s): XR knee LT 3V Accession Number(s): [id number] cc: MASON JOHNSON The [place] [id number] Patient Name: MANISH ROOT MRN: [id number] date: 1945 Sex: M Assigned Patient Location: [facility] Current Patient Location: [facility] Accession/Order Number: [id number] Exam Date: 12/09/2024 13:17 Report Date: 12/09/2024 [...] Corea M.D. 12/09/2024 1:18 PM Dictation Location: [place] [address] Electronically authenticated by: [id number] Y Date: 12/09/2024 13:18 Dictated By: Mavis Corea M.D. Signed By: 12/09/24 1321 DD/ 1318 TD/TT: American History Teacher: [facility] Medical CenterRadiology Study observation (narrative)[facility] Medical CenterXR Knee - left 3 ViewsOrdered By: Radiologist Radiology on 97-01-8713GKHRJohn J. Pershing VA Medical Center Work Phone: ccf T3 SERPL-MCNCon 23-44-2017IDZ T3 SERPL-MCNC73 ng/dLLow79 - 165 ng/dLRIVERTON HOSPITAL HealthcareInterpretation and review of laboratory resultsAbnormJames E. Van [facility] T4 SERPL-MCNCon 48-13-2519K8 [Mass/Vol]5.6 ug/dL5.5 - 10.2 ug/dLJohn J. Pershing VA Medical CenterCC TSH SERPL-ACNCon 39-33-3355KWJ TSH SERPL-ACNC2.85NOFreeman Health SystemNo Panel Informationon 02-50-5915Oxremrbm Type: BLOOD SPECIMEN Ordering Facility: [facility] Address: [address] [place] [address] Original Ordering Provider: Yordan SOLISJohn J. Pershing VA Medical CenterT3 SerPl-mCncon 66-16-4111L3 [Mass/Vol]73 ng/oHJat92-887XyfkohqwfLake County [facility] Comment on above:Order Comment: Specimen Type: BLOOD SPECIMENOrdering Facility: [facility] Address:[address] [place] [address] Performed By: #### 3026-2, 3053-6, 3016-3 ####[facility] LABIA [id number] [place] [id number] [facility]4 SerPl-mCncon 11-93-5020E6 [Mass/Vol]5.6 ug/dLNormal5.5-10.2CFirelands Regional Medical [facility] on above:Order Comment: Specimen Type: BLOOD SPECIMENOrdering Facility: [facility] Address:[address] [place], [place] [address]Performed By: #### 3026-2, 3053-6, 3016-3 ####[facility] LABIA [id number] [address] SerPl-aCncon 78-86-4430BQK Qn2.850 m[IU]/L Normal0.270-4.200[facility] on above:Order Comment: Specimen Type: BLOOD SPECIMENOrdering Facility: [facility] Address:[address] [place] [address] [place], [place] [address]Performed By: #### 3026-2, 3053-6, 3016-3 ####[facility] [id number] [address]ETCNOVon 01-87-4332IYTDChfmyi Visit (LAURIE) MANISH ROOT ([id number]) 1945 M Date Time Provider Department 11/04/24 [...] Lymph 1.00 - 4.00 k/uL 0.48 (L) [place]% % 10.4 Abs [place] <0.87 k/uL 0.32 Eosin% % 1.6 Abs [...] injection of im (more content not included)... NormalLake County Memorial Hospital - WestCNOVSPon 54-32-1405XCRUHWGsieg (SP) Office (HEMASA) MANISH ROOT ([id number]) 1945 M Date Time Provider Department 11/04/24 [...] 11/04/2024 7:00 PM Signed NAME: Manish Root [facility] NO.: [id number] DATE OF SERVICE: November 04, 2024 (darionjuliana) Some elements in this clinic note that [...] Ca Stage 3 - 2/5 LN + Western regimen on protocol Updated Visit, November 04, 2024: Manish is doing well but his Jahaira is still dealing with an infection of left shoulder. He's now doing all the cooking. He is having left hip pain c/w arthritis. Reviewed scans and th (more content not included)...NormalMer[facility] Health [facility] W Auto Differential panel (Bld)on 97-92-5088Jpjlglbnm (Bld) [#/Vol] 0.04 10*3/uLNormal<0.11CFirelands Regional Medical [facility] on above:Order Comment: Specimen Type: BLOOD SPECIMENOrdering Facility: [facility] Address:[address] [place], [place] [address]Performed By: #### 02161-0 ####[facility] LABCLIA [id number] [place], [place] [address]Cyicdlozh/100 WBC (Bld)1.0 %NormalKindred Hospital Dayton on above:Order Comment: Specimen Type: BLOOD SPECIMENOrdering Facility: [facility] Address:[address] [place], [place] [address]Performed By: #### 83331-1 ####[facility] LABCLIA [id number] [place], [place] [address]Uvbnygdoerce cell count method Nom (Bld)AutoNormalCFirelands Regional Medical Center South Campus on above:Order Comment: Specimen Type: BLOOD SPECIMENOrdering Facility: [facility] Address:[address] [place], [place] [address]Performed By: #### 16078-0 ####[facility] LABCLIA [id number] [place], [place] [address]Oqdwtkpwlsl (Bld) [#/Vol]0.10 10*3/uLNormal<0.46[facility] on above:Order Comment: Specimen Type: BLOOD SPECIMENOrdering Facility: [facility] Address:[address] [place], [place] [address]Performed By: #### 20370-7 ####[facility] LABIA [id number] [place], [place] [address]Fbazglvyhsd/100 WBC (Bld)2.6 %NormalKindred Hospital Dayton on above:Order Comment: Specimen Type: BLOOD SPECIMENOrdering Facility: [facility] Address:[address] [place], [place] [address]Performed By: #### 80102-3 ####[facility] LABIA [id number] [place], [place] [address]Tmhvssdyafn distribution width (RBC) [Ratio]13.6 %Normal 11.5-15.0[facility] on above:Order Comment: Specimen Type: BLOOD SPECIMENOrdering Facility: [facility] Address:[address] [place], [place] [address]Performed By: #### 35606-6 ####[facility] LABIA [id number] [place] [address] Hematocrit (Bld) [Volume fraction]41.1 %Ypkdtp83.0-51.0[facility] on above:Order Comment: Specimen Type: BLOOD SPECIMENOrdering Facility: [facility] Address:[address] [place], [place] [address]Performed By: #### 99807-2 ####[facility] LABCLIA [id number] [place], [place] [address]Rjvoerqtxg (Bld) [Mass/Vol]14.0 g/rKVulybg75.0-17.0[facility] on above:Order Comment: Specimen Type: BLOOD SPECIMENOrdering Facility: [facility] Address:[address] [place], [place] [address]Performed By: #### 11340-3 ####[facility] LABCLIA [id number] [place], [place] [address]Egsdduzj granulocytes (Bld) [#/Vol]0.04 10*3/uLNormal <0.10[facility] on above:Order Comment: Specimen Type: BLOOD SPECIMENOrdering Facility: [facility] Address:[address] [place], [place] [address]Performed By: #### 04145-7 ####[facility] LABCLIA [id number] [place], [place] [address]Hrxxvrxv granulocytes/100 WBC (Bld)1.0 %NormalKindred Hospital Dayton on above: Order Comment: Specimen Type: BLOOD SPECIMENOrdering Facility: [facility] Address:[address] [place], [place] [address]Performed By: #### 16[address]- 8 ####[facility] LABCLIA [id number] [place], [place] [address]Xrwlbpdryjr (Bld) [#/Vol]0.58 10*3/uLLow1.00-4.00 [facility] on above:Order Comment: Specimen Type: BLOOD SPECIMENOrdering Facility: [facility] Address:[address] [place], [place] [address]Performed By: #### 49910-0 ####[facility] LABIA [id number] [place], [place] [address]Jxwgmmljqll/100 WBC (Bld)14.8 %NormalKindred Hospital Dayton on above:Order Comment: Specimen Type: BLOOD SPECIMENOrdering Facility: [facility] Address:[address] [place], [place] [address]Performed By: #### 08446-6 ####[facility] LABIA [id number] [place], [place] [address]JEP (RBC) [Entitic mass]30.8 lzRngqfr67.0-34.0[facility] on above:Order Comment: Specimen Type: BLOOD SPECIMENOrdering Facility: [facility] Address:[address] [place], [place] [address]Performed By: #### 73626-7 ####[facility] LABIA [id number] [place], [place] [address]WUHD (RBC) [Mass/Vol]34.1 g/fIFrhbpt55.5-36.0[facility] on above: Order Comment: Specimen Type: BLOOD SPECIMENOrdering Facility: [facility] Address:[address] [place], [place] [address]Performed By: #### 99583- 8 ####[facility] LABIA [id number] [place], [place] [address]CFZ (RBC) [Entitic vol]90.3 dIHglpda25.0-100.0[facility] on above:Order Comment: Specimen Type: BLOOD SPECIMENOrdering Facility: [facility] Address:[address] [place], [place] [address]Performed By: #### 37116-3 ####[facility] LABIA [id number] [place], [place] [address]Zxoctjdnu (Bld) [#/Vol]0.34 10*3/uLNormal<0.87[facility] on above:Order Comment: Specimen Type: BLOOD SPECIMENOrdering Facility: [facility] Address:[address] [place], [place] [address]Performed By: #### 77088- 8 ####[facility] LABIA [id number] [place], [place] [address]Ispvtpoxb/100 WBC (Bld)8.7 %NormalKindred Hospital [facility] on above:Order Comment: Specimen Type: BLOOD SPECIMENOrdering Facility: [facility] Address:[address] [place], [place] [address]Performed By: #### 48796-5 ####[facility] LABIA [id number] [place], [place] [address]Flazzkoedyo (Bld) [#/Vol]2.81 10*3/uLNormal1.45-7.50[facility] on above:Order Comment: Specimen Type: BLOOD SPECIMENOrdering Facility: [facility] Address:[address] [place], [place] [address]Performed By: #### 82717-6 ####[facility] LABCLIA [id number] [place], [place] [address]Slafdicbpwr/100 WBC (Bld)71.9 %NormalKindred Hospital Dayton on above:Order Comment: Specimen Type: BLOOD SPECIMENOrdering Facility: [facility] Address:[address] [place], [place] [address]Performed By: #### 92737-5 ####[facility] LABCLIA [id number] [place], [place] [address]Jcgfhkkwm RBC (Bld) [#/Vol] 10*3/uLNormal<0.01[facility] on above:Order Comment: Specimen Type: BLOOD SPECIMENOrdering Facility: [facility] Address:[address] [place], [place] [address]Performed By: #### 39449-5 ####[facility] LABCLIA [id number] [place], [place] [address]Gkrbbiwxm RBC/100 WBC (Bld) [Ratio]0.0 /100 WBCNormal [facility] on above:Order Comment: Specimen Type: BLOOD SPECIMENOrdering Facility: [facility] Address:[address] [place], [place] [address]Performed By: #### 95218-4 ####[facility] LABIA [id number] [place], [place] [address]Nkglthxq mean volume (Bld) [Entitic vol]9.7 fLNormal9.0-12.7CFirelands Regional Medical [facility] on above:Order Comment: Specimen Type: BLOOD SPECIMENOrdering Facility: [facility] Address:[address] [place], [place] [address] Performed By: #### 57822-5 ####[facility] LABCLIA [id number] [place], [place] [address]Zeoqtnqdh (Bld) [#/Vol]210 10*3/mYSrdval155-086RfxonksjwKindred Hospital [facility] on above:Order Comment: Specimen Type: BLOOD SPECIMENOrdering Facility: [facility] Address:[address] [place], [place] [address]Performed By: #### 58713-9 ####[facility] LABCLIA [id number] [place], [place] [address]VRD (Bld) [#/Vol]4.55 10*6/uLNormal4.20-6.00[facility] on above:Order Comment: Specimen Type: BLOOD SPECIMENOrdering Facility: [facility] Address:[address] [place], [place] [address]Performed By: #### 81321-8 ####[facility] LABIA [id number] [place], [place] [address]TEC (Bld) [#/Vol]3.91 10*3/uLNormal3.70-11.00[facility] on above: Order Comment: Specimen Type: BLOOD SPECIMENOrdering Facility: [facility] Address:[address] [place], [place] [address]Performed By: #### 10852- 8 ####[facility] LABCLIA [id number] [place], [place] [address]JBY CBC W AUTO DIFF BLDon 84-29-8659Bcjsgywcx/100 WBC (Bld)1 %NOMS HealthcareCCF BASOPHILS # BLD AUTO0.04NINFNOProgress West HospitalF DIFFERENTIAL METHOD BLDAutoNOMS HealthcareCCF EOSINOPHIL # BLD AUTO0.1NINFNOPR HealthcareF LYMPHOCYTES # BLD AUTO0.58LowNOMS [facility] Soin Medical CenterCCF MONOCYTES # BLD AUTO0.34NINFNOProgress West HospitalF NEUTROPHILS # BLD AUTO2.81NOCoxHealth NRBC # BLD AUTO<0.01NINFMercy Hospital Washington NRBC/100 WBC BLD-RTO0/100 WBCMercy Hospital Washington PLATELET # BLD [id number] Hospital Washington PMV BLD AUTO9.7 fL9.0 - 12.7 fLMercy Hospital Washington WBC # BLD AUTO3.91John J. Pershing VA Medical CenterEosinophils/100 WBC (Bld)2.6 %[facility] VA Medical CenterErythrocyte distribution width (RBC) [Ratio]13.6 %11.5 - 15.0 %[facility] VA Medical CenterHematocrit (Bld) [Volume fraction]41.1 %39.0 - 51.0 %[facility] VA Medical CenterHemoglobin (Bld) [Mass/Vol]14 g/dL13.0 - 17.0 g/dLCameron Regional Medical Center GRANULOCYTES # BLD AUTO0.04NINorthcrest Medical Center GRANULOCYTES/LEUK NFR BLD AUTO 1 %[facility] VA Medical CenterInterpretation and review of laboratory resultsAbnormConemaugh Meyersdale Medical CenterLymphocytes/100 WBC (Bld)14.8 %Audrain Medical CenterH (RBC) [Entitic mass] 30.8 pg26.0 - 34.0 pgAudrain Medical CenterHC (RBC) [Mass/Vol]34.1 g/dL30.5 - 36.0 g/dLAudrain Medical CenterV (RBC) [Entitic vol]90.3 fL80.0 - 100.0 fLJohn J. Pershing VA Medical Center Monocytes/100 WBC (Bld)8.7 %[facility] VA Medical CenterNeutrophils/100 WBC (Bld)71.9 %[facility]. [facility] VA Medical CenterRBC (Bld) [#/Vol]4.55 10*6/uL4.20 - 6.00 m/uLJohn J. Pershing VA Medical CenterSpecimen Type: BLOOD SPECIMEN [facility] Address: [address] [place] [address] Original Ordering Provider: JOHN CARLOSFreeman Health SystemCT CHEST W IVCONon 83-76-4439FS CHEST W IVCON* * *Final Report* * * DATE OF EXAM: Oct 28 2024 9:48AM [facility] 0539 - CT CHEST W IVCON [...] any questions regarding this interpretation, please call [phone]. If you are unable to reach us at the number above, please feel free to contact [facility] at [phone]. [id number]_IDCSIACNNormalLake County Memorial Hospital - WestCT Chest W contrast Kinga 10-28-2024* * *Final Report* * * DATE OF EXAM: Oct 28 2024 9:48AM [facility] 0539 - CT CHEST W IVCON [...] any questions regarding this interpretation, please call [phone]. If you are unable to reach us at the number above, please feel free to contact [facility] at [phone]. [id number]^AGFA_IDC^SI^ACNCCFRadiology, Radiologist, - 10/28/2024 * * *Final Report* * * DATE OF EXAM: Oct 28 2024 9:48AM [facility] 0539 - CT CHEST W IVCON [...] any questions regarding this interpretation, please call [phone]. If you are unable to reach us at the number above, please feel free to contact [facility] at [phone]. [id number]^AGFA_IDC^SI^ACN NOMS HealthcareCT Chest W contrast IVOrdered By: Radiologist Radiology on 98-37-1391ZNFU [employer] Work Phone: cT NECK SOFT TISSUE W IVCONon 10-28-2024* * *Final Report* * * DATE OF EXAM: Oct 28 2024 9:48AM [facility] 0013 - CT NECK SOFT [...] review the electronic medical record, history of Y01-cezdducu LEFT tongue base squamous cell carcinoma status [...] any questions regarding this interpretation, please call [phone]. If you are unable to reach us at the number above, please feel free to contact [facility] at [phone]. [id number]^AGFA_IDC^SI^ACNCCFRadiology, Radiologist, - 10/28/2024 * * *Final Report* * * DATE OF EXAM: Oct 28 2024 9:48AM [facility] 0013 - CT NECK SOFT [...] review the electronic medical record, history of W74-xqxfttmc LEFT tongue base squamous cell carcinoma status [...] any questions regarding this interpretation, please call [phone]. If you are unable to reach us at the number above, please feel free to contact [facility] at [phone]. [id number]^AGFA_IDC^SI^ACN NOMS HealthcareCT NECK SOFT TISSUE W IVCON* * *Final Report* * * DATE OF EXAM: Oct 28 2024 9:48AM [facility] 0013 - CT NECK SOFT [...] review the electronic medical record, history of V37-gatrromh LEFT tongue base squamous cell carcinoma status [...] any questions regarding this interpretation, please call [phone]. If you are unable to reach us at the number above, please feel free to contact [facility] eRadiology at [phone]. [id number]_IDCSIACNNormalParkwood Hospital NECK SOFT TISSUE W IVCONOrdered By: Radiologist Radiology on 85-48-7663ARLFJohn J. Pershing VA Medical Center Work Phone: comprehensive metabolic 2000 panelon 81-09-0960Bpjxcsq [Mass/Vol]4.6 g/dLNormal3.9-4.9CFirelands Regional Medical [facility] on above:Order Comment: Specimen Type: BLOOD SPECIMENOrdering Facility: [facility] Address:[address] [place], [place] [address]Performed By: #### 3016-3 ####[facility] LABCLIA [id number] [facility] [id number] [place] [address] [place]#### 54718-2 ####[facility] LABCLIA [id number] [place], [place] [address]VEJ [Catalytic activity/Vol]61 U/OCbymnk45-669SbjesynviLake County Memorial Hospital - West Comment on above:Order Comment: Specimen Type: BLOOD SPECIMENOrdering Facility: [facility] Address:[address] [place] [address] Performed By: #### 3016-3 ####[facility] LABCLIA [id number] [address] [place]#### 00185-6 ####[facility] LABCLIA [id number] [place], [place] [address]GEK [Catalytic activity/Vol]27 U/LNormal 10-54[facility] on above:Order Comment: Specimen Type: BLOOD SPECIMENOrdering Facility: [facility] Address:[address] [place], [place] [address]Performed By: #### 3016-3 ####[facility] LABCLIA [id number] [place] [address] [place]#### 48272-9 ####[facility] LABCLIA [id number] [place], [place] [address]Jwjah gap [Moles/Vol]11 mmol/L Normal8-15[facility] on above:Order Comment: Specimen Type: BLOOD SPECIMENOrdering Facility: [facility] Address:[address] [place], [place] [address]Performed By: #### 3016-3 ####[facility] LABCLIA [id number] [place] [address] [place]#### 13262-0 ####[facility] [place] BCLIA [id number] [place], [place] [address]CSD [Catalytic activity/Vol]23 U/WLpcbte91-72UrolxnbcrKindred Hospital Dayton on above:Order Comment: Specimen Type: BLOOD SPECIMENOrdering Facility: [facility] Address:[address] [place], [place] [address]Performed By: #### 3016-3 ####[facility] LABCLIA [id number] [place] [address] [place]#### 00320-2 ####[facility] LABCLIA [id number] [place], [place] [address]Tglfqigfo [Mass/Vol]0.5 mg/dLNormal0.2-1.3CFirelands Regional Medical Center South Campus on above:Order Comment: Specimen Type: BLOOD SPECIMENOrdering Facility: [facility] Address:[address] [place] [address] Performed By: #### 3016-3 ####[facility] LABCLIA [id number] [place] [address] [place]#### 03280-9 ####[facility] LABCLIA [id number] [place], [place] [address]Uueihbj [Mass/Vol]9.8 mg/dLNormal8.5-10.2 [facility] on above:Order Comment: Specimen Type: BLOOD SPECIMENOrdering Facility: [facility] Address:[address] [place], [place] [address]Performed By: #### 3016-3 ####[facility] LABCLIA [id number] [place] [address] [place]#### 75940-8 ####YOVANY OLSENUSKY [facility] LABCLIA [id number] [place], [place] [address]Rdydmybx [Moles/Vol]100 mmol/ZNcjoos88-896 [facility] on above:Order Comment: Specimen Type: BLOOD SPECIMENOrdering Facility: [facility] Address:[address] [place], [place] [address]Performed By: #### 3016-3 ####[facility] LABCLIA [id number] [place] [address] [place]#### 61545-9 ####[facility] LABCLIA [id number] [place], [place] [address]ZK3 [Moles/Vol]27 mmol/HOuuvgl71-62OxdublsyuKindred Hospital Dayton on above:Order Comment: Specimen Type: BLOOD SPECIMENOrdering Facility: [facility] Address:[address] [place], [place] [address]Performed By: #### 3016-3 ####[facility] LABCLIA [id number] [address] [place]#### 68314-6 ####[facility]ANK[facility]AJERMA[facility] LABCLIA [id number] [place], [place] [address]Xhjvdhohvk [Mass/Vol]1.04 mg/dLNormal 0.73-1.22[facility] on above:Order Comment: Specimen Type: BLOOD SPECIMENOrdering Facility: [facility] Address:[address] [place], [place] [address]Performed By: #### 3016-3 ####[facility] LABCLIA [id number] [address] [place]#### 77135-1 ####[facility] [place] BCLIA [id number] [place], [place] [address]Mtbcxmymns and Glomerular filtration rate.predicted panel (S/P/Bld)73 mL/min/1.73m???Normal>=60 [facility] on above:Order Comment: Specimen Type: BLOOD SPECIMENOrdering Facility: [facility] Address:[address] [place], [place] [address]Result Comment: Estimated Glomerular Filtration Rate (eGFR) is [...] accurately reflect actual GFR.Performed By: #### 3016-3 ####[facility] LABCLIA [id number] [address]#### 10872-2 ####[facility] LABCLIA [id number] [place], [place] [address]Purutje [Mass/Vol]235 mg/pHKkcs56-68 [facility] on above:Order Comment: Specimen Type: BLOOD SPECIMENOrdering Facility: [facility] Address:[address] [place], [place] [address]Result Comment: The [place] Diabetes Association (ADA) provides guidance for cutoff [...] Standards of Medical Care in Diabetes 2016, [place] [employer] Association. Diabetes Care. 2016.39(Suppl 1).Performed By: #### 3016-3 ####[facility] LABCLIA [id number] [place] [address] [place]#### 17611-3 ####[facility] LABCLIA [id number] [place], [place] [address]Clqzbuywt [Moles/Vol]4.3 mmol/LNormal3.7-5.1CCleveland Clinic Children's [facility] Comment on above:Order Comment: Specimen Type: BLOOD SPECIMENOrdering Facility: [facility] Address:[address] [place] [address] Performed By: #### 3016-3 ####[facility] LABCLIA [id number] [place] [address] [place]#### 28622-5 ####[facility] LABCLIA [id number] [place], [place] [address]Qccraon [Mass/Vol]7.2 g/dLNormal6.3-8.0 [facility] - WestComment on above:Order Comment: Specimen Type: BLOOD SPECIMENOrdering Facility: [facility] Address:[address] [place], [place] [address]Performed By: #### 3016-3 ####[facility] LABCLIA [id number] [address] [place]#### 37036-0 ####[facility] LABCLIA [id number] [place], [place] [address]Vakxsi [Moles/Vol]138 mmol/EModtud669-471 [facility] on above:Order Comment: Specimen Type: BLOOD SPECIMENOrdering Facility: [facility] Address:[address] [place], [place] [address]Performed By: #### 3016-3 ####[facility] LABCLIA [id number] [place] [address] [place]#### 17296-8 ####[facility] LABCLIA [id number] [place], [place] [address]Veud nitrogen [Mass/Vol]13 mg/dLNormal9-24 [facility] on above:Order Comment: Specimen Type: BLOOD SPECIMENOrdering Facility: [facility] Address:[address] [place], [place] [address]Performed By: #### 3016-3 ####[facility] LABCLIA [id number] [place] [address] [place]#### 23985-2 ####[facility] LABCLIA [id number] [place], [place] [address]Pi Panel Informationon 76-18-3214Ocpkfmxdn Study observation (narrative)NOMS HealthcareT4 SerPl-mCncon 87-72-0929K4 [Mass/Vol]0.6 ug/dLLow5.5-10.2CFirelands Regional Medical [facility] on above:Order Comment: Specimen Type: BLOOD SPECIMENOrdering Facility: [facility] Address:[address] [place], [place] [address]Performed By: #### 3026-2 ####[facility] LABCLIA [id number] [address] STATES OF [facility] HOSPITALTS SerPl-aCncon 39-06-3130FDV Qn 3.310 m[IU]/LNormal0.270-4.200[facility] on above:Order Comment: Specimen Type: BLOOD SPECIMENOrdering Facility: [facility] Address:[address] [place], [place] [address]Performed By: #### 3016-3 ####[facility] LABCLIA [id number] [place] [address] [place]#### 31745-4 ####[facility] LABCLIA [id number] [place], [place] [address]LHBGqg 88-35-0185AFPEXrpllbwcm (RADTSA) DKMANISH Kassidy ([id number]) 1945 M Date Time Provider Department 10/27/24 Yordan FELIZ HEATHERRicci During your visit today, we recorded the following information about you: Nela Antoine RN 10/27/2024 12:55 PM Signed DENA- does pt need T4, TSH prior to RV? If so, please sign pended orders and they can be drawn during CT. 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] Order(s):T4/THYROXINE [SQT4] Order #: [id number] FUTURE THYROID STIMULATING HORMONE [SQTSH] Order #: [id number] FUTURE THYROID STIMULATING HORMONE [SQTSH] Order #: [id number] FUTURE Prescriptions as of 10/29/2024 - cholecalciferol, [...] [E74.*02/11/2023 Encounter Status:Closed by NELA ANTOINE on 10/29/24[facility]XR CERVICAL SPINE 2-3Von 28-14-[place]888[place]kp[place], [place] [address] XRay Report Signed Patient: MANISH ROOT MR#: [id number] : 1945 Acct:[id number] Age/Sex: 78 / M ADM Date: 10/13/24 Loc: RAD Attending Dr: MASON JOHNSON Ordering Physician: MASON JOHNSON Date of Service: 10/13/24 Procedure(s): XR cervical spine 2-3V Accession Number(s): [id number] cc: MASON JOHNSON [place] [id number] Patient Name: MANISH ROOT MRN: [id number] date: 1945 Sex: M Assigned Patient Location: [facility] Current Patient Location: [facility] Accession/Order Number: [id number] Exam Date: 10/13/2024 10:38 Report Date: 10/13/2024 [...] Eric Alcaraz M.D.10/13/2024 10:40 AM Dictation Location: [place] [address] Electronically authenticated by: [id number] Y Date: 10/13/2024 10:40 Dictated By: Eric Alcaraz D.O. Signed By: 10/13/24 1043 DD/ 1040 TD/TT: American History Teacher:TBHRadiology, Radiologist, - 10/13/2024 [place] [address] XRay Report Signed Patient: MANISH ROOT MR#: [id number] : 1945 Acct:[id number] Age/Sex: 78 / M ADM Date: 10/13/24 Loc: RAD Attending Dr: MASON JOHNSON Ordering Physician: MASON JOHNSON Date of Service: 10/13/24 Procedure(s): XR cervical spine 2-3V Accession Number(s): [id number] cc: MASON JOHNSON [place] [id number] Patient Name: MANISH ROOT MRN: [id number] date: 1945 Sex: M Assigned Patient Location: [facility] Current Patient Location: [facility] Accession/Order Number: [id number] Exam Date: 10/13/2024 10:38 Report Date: 10/13/2024 [...] Eric Alcaraz M.D.10/13/2024 10:40 AM Dictation Location: [employer] Electronically authenticated by: [id number] Y Date: 10/13/2024 10:40 Dictated By: Eric Alcaraz D.O. Signed By: 10/13/24 1043 DD/ 1040 TD/TT: American History Teacher: QUIANA HealthcareRadiology Study observation (narrative)NOMS HealthcareXR CERVICAL SPINE 2-3VOrdered By: Radiologist Radiology on 71-79-1623[facility] Work Phone: XR HIP LT MIN 2Von 85-32-3251[place], [place] [address] XRay Report Signed Patient: MANISH ROOT MR#: [id number] : 1945 Acct:[id number] Age/Sex: 78 / M ADM Date: 10/13/24 Loc: RAD Attending Dr: MASON JOHNSON Ordering Physician: MASON JOHNSON Date of Service: 10/13/24 Procedure(s): XR hip LT min 2V Accession Number(s): [id number] cc: MASON JOHNSON [place] [id number] Patient Name: MANISH ROOT MRN: [id number] date: 1945 Sex: M Assigned Patient Location: [facility] Current Patient Location: [facility] Accession/Order Number: [id number] Exam Date: 10/13/2024 10:37 Report Date: 10/13/2024 [...] AM Dictation Location: [facility]-PC-23 Electronically authenticated by: [id number] Y Date: 10/13/2024 10:38 Dictated By: Eric Alcaraz D.O. Signed By: 10/13/24 104 DD/ 1038 TD/TT: American History Teacher:Priyanka Ponce MD - 10/13/2024 [place] [address] XRay Report Signed Patient: MANISH ROOT MR#: [id number] : 1945 Acct:[id number] Age/Sex: 78 / M ADM Date: 10/13/24 Loc: [facility] Attending Dr: MASON JOHNSON Ordering Physician: MASON JOHNSON Date of Service: 10/13/24 Procedure(s): XR hip LT min 2V Accession Number(s): [id number] cc: MASON JOHNSON [place] [id number] Patient Name: MANISH ROOT MRN: [id number] date: 1945 Sex: M Assigned Patient Location: [facility] Current Patient Location: [facility] Accession/Order Number: [id number] Exam Date: 10/13/2024 10:37 Report Date: 10/13/2024 [...] Eric Alcaraz M.D.10/13/2024 10:38 AM Dictation Location: [facility] Electronically authenticated by: [id number] Y Date: 10/13/2024 10:38 Dictated By: Eric Alcaraz D.O. Signed By: 10/13/24 104 DD/ 1038 TD/TT: American History Teacher: HERMESJanell HealthcareRadiology Study observation (narrative)HERMESS HealthcareXR HIP LT MIN 2VOrdered By: Radiologist Radiology on [id number] J. [facility] Work Phone: No Panel Informationon [id number] J. Pershing VA Medical CenterNOPR HealthcarePSA, TOTALon [id number], TOTAL1.15 ng/mLNormal< OR = 4.00Quest DiagnosticsComment on above:Order Comment: FASTING:YES FASTING: YESResult Comment: The total PSA value from this assay system is standardized against the WHO standard. The test result will be approximately 20% lower when compared to the equimolar-standardized total PSA ([employer] [place]). Comparison of serial PSA results should be interpreted with this fact in mind. This test was performed using the Siemens chemiluminescent method. Values obtained from different assay methods cannot be used interchangeably. PSA levels, regardless of value, should not be interpreted as absolute evidence of the presence or absence of disease.Performed By: #### [id number] #### [facility] [address], [address] [place] [id number] Acidizer Water Well: Maged Olson MDLaboratory - Hematology and Cell countson [id number] (Bld) [Mass fraction]6.9 %John [facility] CenterNo Panel Informationon [id number] J. Pershing VA Medical CenterNo Panel Informationon [id number] J. [facility] CenterCBC W Auto Differential panel (Bld)on [id number] (Bld) [#/Vol]0.03 10*3/uL NINFCleveland ClinicDifferential cell count method Nom (Bld)AutoCleveland Clinic Eosinophils (Bld) [#/Vol]0.06 10*3/uLNIBarney Children's Medical CenterImmature granulocytes (Bld) [#/Vol]NINFCleveland ClinicImmature granulocytes/100 WBC (Bld)0.6 % [facility] SpringfieldLymphocytes (Bld) [#/Vol]0.46 10*3/uLLowKettering Health Springfield Monocytes (Bld) [#/Vol]0.30 10*3/uLNINFKettering Health SpringfieldNeutrophils (Bld) [#/Vol] 2.59 10*3/uLCleLicking Memorial HospitalNucleated RBC (Bld) [#/Vol]NINFCLima Memorial Hospital Nucleated RBC/100 WBC (Bld) [Ratio]0.0 %/100 WBCKettering Health SpringfieldPlatelet mean volume (Bld) [Entitic vol]9.4 fL9.0 - 12.7 fLClevelunc health ClinicPlatelets (Bld) [#/Vol]206 10*3/[facility] HospitalWBC (Bld) [#/Vol]3.46 10*3/uLThe MetroHealth SystemF CBC W AUTO DIFF BLDon [id number] BASOPHILS # BLD AUTO0.03[facility]ILake[facility] DIFFERENTIAL METHOD BLDAutoNOMNorthwest Medical Center EOSINOPHIL # BLD AUTO0.06[facility]ILake[facility] LYMPHOCYTES # BLD AUTO0.46[facility] MONOCYTES # BLD AUTO0.3[facility]ILake[facility] NEUTROPHILS # BLD AUTO2.59[facility] NRBC # BLD AUTO<0.01[facility]ILake[facility] NRBC/100 WBC BLD-RTO0 /100 WBCMercy Hospital Washington PLATELET # BLD OLAB180SNAOMercy Hospital Washington PMV BLD AUTO 9.4 fL9.0 - 12.7 fLMercy Hospital Washington WBC # BLD AUTO3.46[facility] GRANULOCYTES # BLD AUTO<0.03NINorthcrest Medical Center GRANULOCYTES/LEUK NFR BLD AUTO0.6 %[facility] CenterSpecimen Type: BLOOD SPECIMEN Ordering Facility: [facility] Address: [address] [place] [address] Original Ordering Provider: JOHN DANIELISYNCF FERRITIN SERPL-MCNCon [id number] FERRITIN SERPL-WHKT421.0 ng/mL30.3 - 565.7 ng/mLNHannibal Regional HospitalF FOLATE SERPL-MCNCon [id number] FOLATE SERPL-MCNC12.1 ng/mL4.7 - PINF ng/mL [facility] HospitalF IRON+TIBC PNL SERPLon [id number] IRON SERPL-MCNC78 ug/dL41 - 186 ug/dLMercy Hospital Washington IRON/TIBC SERPL-SRTO26.0 %15.0 - 57.0 %NOMS HealthcareCCF TIBC SERPL-FCMA568 ug/dL232 - 386 ug/dLNOMS HealthcareSpecimen Type: BLOOD SPECIMEN Ordering Facility: [facility] Address: [address] [place] [address] Original Ordering Provider: JOHN DANIELISYNCCT Chest W contrast [place] [id number]: 1. No interval change since 10/16/23. 2. [...] any questions regarding this interpretation, please call [phone]. If you are unable to reach us at the number above, please feel free to contact [facility] [place] eRadiology at [phone].DIVISION OF RADIOLOGY* * *Final Report* * * DATE OF EXAM: Apr 23 2024 9:58AM [facility] 0539 - CT CHEST W IVCON [...] images: No additional findings. DIVISION OF RADIOLOGYProvider, [facility] [place] - 04/23/2024 * * *Final Report* * * DATE OF EXAM: Apr 23 2024 9:58AM [facility] 0539 - CT CHEST W IVCON [...] any questions regarding this interpretation, please call [phone]. If you are unable to reach us at the number above, please feel free to contact [facility] [place] eRadiology at [phone]. [facility]* * *Final Report* * * DATE OF EXAM: Apr 23 2024 9:58AM [facility] 0539 - CT CHEST W IVCON [...] any questions regarding this interpretation, please call [phone]. If you are unable to reach us at the number above, please feel free to contact [facility] at [phone]. [id number]^AGFA_IDC^SI^ACNCCFRadiology, Radiologist, - 04/23/2024 * * *Final Report* * * DATE OF EXAM: Apr 23 2024 9:58AM [facility] 0539 - CT CHEST W IVCON [...] any questions regarding this interpretation, please call [phone]. If you are unable to reach us at the number above, please feel free to contact [facility] at [phone]. 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 Mechanical Operator (topogram) images: No additional findings. IMPRESSION: [...] any questions regarding this interpretation, please call [phone]. If you are unable to reach us at the number above, please feel free to contact [facility] at [phone]. [id number]^AGFA_IDC^SI^ACNCCFRadiology, Radiologist, - 04/23/2024 * * *Final Report* * * DATE OF EXAM: Apr 23 2024 9:58AM [facility] 0013 - CT NECK SOFT [...] a moderate-severe central stenosis at C4-5, unchanged. Mechanical Operator (topogram) images: No additional findings. IMPRESSION: [...] any questions regarding this interpretation, please call [phone]. If you are unable to reach us at the number above, please feel free to contact [facility]Radiology at [phone]. [id number]^AGFA_IDC^SI^ACN NOMS HealthcareCT Neck W contrast [place] [id number]: 1. STABLE POSTTREATMENT CHANGES AT LEFT BASE [...] any questions regarding this interpretation, please call [phone]. If you are unable to reach us at the number above, please feel free to contact [facility]iology at [phone].DIVISION OF RADIOLOGY* * *Final Report* * * DATE OF EXAM: Apr 23 2024 9:58AM [facility] 0013 - CT NECK SOFT [...] a moderate-severe central stenosis at C4-5, unchanged. Mechanical Operator (topogram) images: No additional findings. DIVISION OF RADIOLOGYProvider, [facility] [place] - 04/23/2024 * * *Final Report* * * DATE OF EXAM: Apr 23 2024 9:58AM [facility] 0013 - CT NECK SOFT [...] a moderate-severe central stenosis at C4-5, unchanged. Mechanical Operator (topogram) images: No additional findings. IMPRESSION [...] any questions regarding this interpretation, please call [phone]. If you are unable to reach us at the number above, please feel free to contact [facility]iology at [phone]. [facility] SpringfieldComprehensive metabolic 1999 panelOrdered By: Moustapha Calderon on [id number] [Mass/Vol]4.2 g/dL3.9 - 4.9 g/dLThompson ClinicALP [Catalytic activity/Vol]48 U/L38 - 113 U/LCleveland ClinicALT [Catalytic activity/Vol]14 U/L10 - 54 U/LCleveland ClinicAnion gap [Moles/Vol]8 mmol/L8 - 15 mmol/L Thompson ClinicAST [Catalytic activity/Vol]15 U/L14 - 40 U/LCleveland [facility] Bilirubin [Mass/Vol]0.5 mg/dL0.2 - 1.3 mg/dLThompson ClinicCalcium [Mass/Vol] 9.5 mg/dL8.5 - 10.2 mg/dLThompson ClinicChloride [Moles/Vol]103 mmol/L98 - 107 mmol/LCleveland ClinicCO2 [Moles/Vol]30 mmol/L22 - 30 mmol/LCleveland Clinic Creatinine [Mass/Vol]1.32 mg/dLHigh0.73 - 1.22 mg/dLKettering Health SpringfieldGFR/1.73 sq M.predicted among non-blacks MDRD (S/P/Bld) [Vol [...] eGFRmay not accurately reflect actual GFR.Glucose [Mass/Vol]146 mg/pYNkxj71 - 99 mg/dLKettering Health Springfield Comment on above:The [place] Diabetes Association (ADA) provides guidance for cutoff [...] Standards of Medical Care in Diabetes 2016, [place] [employer] Association. Diabetes Care. 2016.39(Suppl 1). Interpretation and review of laboratory resultsAbnormalCleveland ClinicPotassium [Moles/Vol]4.3 mmol/L3.7 - 5.1 mmol/LClevelunc health ClinicProtein [Mass/Vol]6.6 g/dL 6.3 - 8.0 g/dLCleveland Clinic Euclid Hospitalodium [Moles/Vol]141 mmol/L136 - 144 mmol/L [facility] SpringfieldUrea nitrogen [Mass/Vol]18 mg/dL9 - 24 mg/dLMercy Health St. Anne HospitalFERRITINon [id number] [Mass/Vol]158.0 ng/mL30.3 - 565.7 ng/mLCleveland [facility] Medical CenterFOLATE, SERUMon 53-07-8571Ojsjrt [Mass/Vol]12.1 ng/mL4.7 - PINF ng/mLCleveland ClinicIron and Iron binding capacity panelon 04-23-2024 Interpretation and review of laboratory resultsNormalCleveland [facility] Medical CenterIron [Mass/Vol]78 ug/dL41 - 186 ug/dLKettering Health SpringfieldIron binding capacity [Mass/Vol] 300 ug/dL232 - 386 ug/dLKettering Health SpringfieldIron/TIBC [Molar ratio]26.0 %15.0 - 57.0 %[facility] Shawor[facility] - Chemistry and Chemistry - challengeon 04-23-2024 Cobalamin (Vitamin B12) [Mass/Vol]349 pg/mL232 - 1245 pg/mLCleveland [facility] Laboratory - Hematology and Cell countson 58-78-4930Lbptydtwb/100 WBC (Bld)0.9 % NOMTenet St. LouisEosinophils/100 WBC (Bld)1.7 %[facility] Medical CenterErythrocyte distribution width (RBC) [Ratio]14.4 %11.5 - 15.0 %[facility] Medical CenterHematocrit (Bld) [Volume fraction]38.4 %Low39.0 - 51.0 %[facility] CenterHemoglobin (Bld) [Mass/Vol]13.3 g/dL13.0 - 17.0 g/dLJohn J. Pershing VA Medical CenterLymphocytes/100 WBC (Bld)13.3 %[facility] Medical CenterMCH (RBC) [Entitic mass]31.9 pg26.0 - 34.0 pgNOFreeman Health SystemMCHC (RBC) [Mass/Vol]34.6 g/dL30.5 - 36.0 g/dLAudrain Medical CenterV (RBC) [Entitic vol] 92.1 fL80.0 - 100.0 fLJohn J. Pershing VA Medical CenterMonocytes/100 WBC (Bld)8.7 %[facility] Neutrophils/100 WBC (Bld)74.8 %[facility] Medical CenterRBC (Bld) [#/Vol]4.17 10*6/uLLow 4.20 - 6.00 m/uLJohn J. Pershing VA Medical CenterNo Panel Informationon [id number] and review of laboratory resultsNormalCleveland [facility] Hospitalpecimen Type: BLOOD SPECIMEN Ordering Facility: [facility] Address: [address] [place] [address] Original Ordering Provider: JOHN STEINKettering Health [place] Interpretation and review of laboratory resultsAbnormalJohn J. Pershing VA Medical CenterNOPR HealthcareRadiology Study observation (narrative)[facility] SpringfieldRadiology Study observation (narrative)NOMS HealthcareNo Panel InformationOrdered By: Ccf Provider on [id number] ClinicALL LIPID PROFILE (FASTING)on 03-04-2024 CHOL HDL RATIO4.1NOMS HealthcareComment on above:3.3 - 4.4 LOW RISK 4.4 - 7.1 AVERAGE RISK 7.1 - 11.0 MODERATE RISK >11.0 HIGH RISK Cholesterol [Mass/Vol]176 mg/dLNINF - 200 mg/dLNOPR HealthcareCholesterol in HDL [Mass/Vol]43 mg/dL40 - 60 mg/dLNOMS HealthcareComment on above:> or =60 mg/dl - LOW CARDIOVASCULAR RISK <40 mg/dl - HIGH CARDIOVASCULAR RISK Magnesium [Mass/Vol]115.8 mg/dLNOPR HealthcareComment on above:<100 mg/dl OPTIMAL 100-129 mg/dl NEAR OR ABOVE OPTIMAL 130-159 mg/dl BORDERLINE HIGH 160-189 mg/dl HIGH >190 mg/dl VERY HIGH Magnesium [Mass/Vol]17.2 mg/dLNOPR HealthcareTriglyceride [Mass/Vol]86 mg/dLNINF - 150 mg/dLNOPR HealthcareCLINISYNCNOMS HealthcareCT Chest W contrast [place] [id number]: 1. Stable appearance of patchy groundglass opacities [...] any questions regarding this interpretation, please call [phone]. If you are unable to reach us at the number above, please feel free to contact [facility] [place] [facility]iology at [phone].DIVISION OF RADIOLOGY* * *Final Report* * * DATE OF EXAM: Oct 16 2023 12:43PM [facility] 0539 - CT CHEST W IVCON [...] images: No additional findings. DIVISION OF RADIOLOGYProvider, [facility] [place] - 10/17/2023 * * *Final Report* * * DATE OF EXAM: Oct 16 2023 12:43PM [facility] 0539 - CT CHEST W IVCON [...] any questions regarding this interpretation, please call [phone]. If you are unable to reach us at the number above, please feel free to contact [facility] [place] [facility]iology at [phone]. [facility]* * *Final Report* * * DATE OF EXAM: Oct 16 2023 12:43PM [facility] 0539 - CT CHEST W IVCON [...] any questions regarding this interpretation, please call [phone]. If you are unable to reach us at the number above, please feel free to contact [facility] at [phone]. [id number]^AGFA_IDC^SI^ACNCCFRadiology, Radiologist, - 10/17/2023 * * *Final Report* * * DATE OF EXAM: Oct 16 2023 12:43PM [facility] 0539 - CT CHEST W IVCON [...] any questions regarding this interpretation, please call [phone]. If you are unable to reach us at the number above, please feel free to contact [facility] [place] [facility]iology at [phone]. [id number]^AGFA_IDC^SI^ACN NOMS HealthcareCT Chest W contrast IVOrdered By: Ccf Provider on 10-17-2023 [facility] W Auto Differential panel (Bld)on [id number] (Bld) [#/Vol]NINFCleveland ClinicBasophils/100 WBC (Bld)0.6 %[facility] Differential cell count method Nom (Bld)AutoCleveland ClinicEosinophils (Bld) [#/Vol]0.05 10*3/uLNINFCleLicking Memorial HospitalEosinophils/100 WBC (Bld)1.6 %[facility] SpringfieldErythrocyte distribution width (RBC) [Ratio]13.8 %11.5 - 15.0 %[facility] SpringfieldHematocrit (Bld) [Volume fraction]37.9 %Low39.0 - 51.0 %[facility] Hemoglobin (Bld) [Mass/Vol]12.6 g/dLLow13.0 - 17.0 g/dLKettering Health SpringfieldImmature granulocytes (Bld) [#/Vol]NINFCleveland ClinicImmature granulocytes/100 WBC (Bld)0.6 %[facility] SpringfieldInterpretation and review of laboratory results AbnormalKettering Health SpringfieldLymphocytes (Bld) [#/Vol]0.48 10*3/uLMagruder Memorial Hospital Lymphocytes/100 WBC (Bld)15.6 %[facility] AndersonH (RBC) [Entitic mass]30.1 pg 26.0 - 34.0 pgCKeenan Private HospitalHC (RBC) [Mass/Vol]33.2 g/dL30.5 - 36.0 g/dL [facility] AndersonV (RBC) [Entitic vol]90.7 fL80.0 - 100.0 fLCLima Memorial Hospital Monocytes (Bld) [#/Vol]0.32 10*3/NINFKettering Health SpringfieldMonocytes/100 WBC (Bld) 10.4 %[facility] SpringfieldNeutrophils (Bld) [#/Vol]2.19 10*3/[facility] Neutrophils/100 WBC (Bld)71.2 %[facility] SpringfieldNucleated RBC (Bld) [#/Vol]NINF [facility] SpringfieldNucleated RBC/100 WBC (Bld) [Ratio]0.0 %/100 WBCKettering Health [place] Platelet mean volume (Bld) [Entitic vol]9.1 fL9.0 - 12.7 fLCLima Memorial Hospital Platelets (Bld) [#/Vol]183 10*3/uLKettering Health SpringfieldRBC (Bld) [#/Vol]4.18 10*6/uL Low4.20 - 6.00 m/[facility] Brent[facility] HospitalWBC (Bld) [#/Vol]3.08 10*3/uLKettering Health PrebleCT NECK SOFT TISSUE W IVCONon 10-16-2023* * *Final Report* * * DATE OF EXAM: Oct 16 2023 12:43PM [facility] 0013 - CT NECK SOFT [...] any questions regarding this interpretation, please call [phone]. If you are unable to reach us at the number above, please feel free to contact [facility] at [phone]. [id number]^AGFA_IDC^SI^ACNCCFRadiology, Radiologist, - 10/16/2023 * * *Final Report* * * DATE OF EXAM: Oct 16 2023 12:43PM [facility] 0013 - CT NECK SOFT [...] any questions regarding this interpretation, please call [phone]. If you are unable to reach us at the number above, please feel free to contact [facility] [place] eRadiology at [phone]. [id number]^AGFA_IDC^SI^ACN NOMS HealthcareCT Neck W contrast iKnga 29-20-5412SMTIJGHTZJ: Primary: NI-RADS 1. Expected post-treatment changes in [...] any questions regarding this interpretation, please call [phone]. If you are unable to reach us at the number above, please feel free to contact [facility] at [phone].DIVISION OF RADIOLOGY* * *Final Report* * * DATE OF EXAM: Oct 16 2023 12:43PM [facility] 0013 - CT NECK SOFT [...] of the intrathoracic contents. DIVISION OF RADIOLOGYProvider, [facility] [place] - 10/16/2023 * * *Final Report* * * DATE OF EXAM: Oct 16 2023 12:43PM [facility] 0013 - CT NECK SOFT [...] any questions regarding this interpretation, please call [phone]. If you are unable to reach us at the number above, please feel free to contact [facility] [place] eRadiology at [phone]. [facility] SpringfieldComprehensive metabolic 1999 panelOrdered By: Moustapha Calderon on [id number] [Mass/Vol]4.4 g/dL3.9 - 4.9 g/dLThompson ClinicALP [Catalytic activity/Vol]48 U/L38 - 113 U/LCleveland ClinicALT [Catalytic activity/Vol]13 U/L10 - 54 U/LCleveland ClinicAnion gap [Moles/Vol]11 mmol/L9 - 18 mmol/L Thompson ClinicAST [Catalytic activity/Vol]15 U/L14 - 40 U/LCleveland Clinic Bilirubin [Mass/Vol]0.5 mg/dL0.2 - 1.3 mg/dLKettering Health SpringfieldCalcium [Mass/Vol] 9.7 mg/dL8.5 - 10.2 mg/dLThompson ClinicChloride [Moles/Vol]105 mmol/L97 - 105 mmol/LCleveland ClinicCO2 [Moles/Vol]26 mmol/L22 - 30 mmol/LCleveland Clinic Creatinine [Mass/Vol]1.34 mg/dLHigh0.73 - 1.22 mg/dLKettering Health SpringfieldGFR/1.73 sq M.predicted among non-blacks MDRD (S/P/Bld) [Vol [...] eGFRmay not accurately reflect actual GFR.Glucose [Mass/Vol]135 mg/dQKbxi75 - 99 mg/dLKettering Health [place] Comment on above:The [place] Diabetes Association (ADA) provides guidance for cutoff [...] Standards of Medical Care in Diabetes 2016, [place] [employer] Association. Diabetes Care. 2016.39(Suppl 1). Interpretation and review of laboratory resultsAbnormalCleveland ClinicPotassium [Moles/Vol]4.5 mmol/L3.7 - 5.1 mmol/LCleveland ClinicProtein [Mass/Vol]6.7 g/dL 6.3 - 8.0 g/dLThompson ClinicSodium [Moles/Vol]142 mmol/L136 - 144 mmol/L [facility] SpringfieldUrea nitrogen [Mass/Vol]22 mg/dL9 - 24 mg/dLMercy Health St. Anne HospitalNo Panel Informationon [id number] ClinicRadiology Study observation (narrative)[facility] SpringfieldRadj.w. [facility] Study observation (narrative) NOMS HealthcareCT Chest W contrast [place] [id number]: 1. Since 03/14/2023, near complete resolution of [...] any questions regarding this interpretation, please call [phone]. If you are unable to reach us at the number above, please feel free to contact [facility] at [phone].DIVISION OF RADIOLOGY* * *Final Report* * * DATE OF EXAM: Jun 12 2023 8:15AM [facility] 0539 - CT CHEST W IVCON [...] noted are nonspecific noncalcified pulmonary nodules, with tax compliance representative larger examples detailed as follows on [...] No abnormality in the imaged upper abdomen. Mechanical Operator (topogram) images: No additional findings. DIVISION OF RADIOLOGYProvider, [facility] [place] - 06/12/2023 * * *Final Report* * * DATE OF EXAM: Jun 12 2023 8:15AM [facility] 0539 - CT CHEST W IVCON [...] noted are nonspecific noncalcified pulmonary nodules, with tax compliance representative larger examples detailed as follows on [...] No abnormality in the imaged upper abdomen. Mechanical Operator (topogram) images: No additional findings. IMPRESSION [...] any questions regarding this interpretation, please call [phone]. If you are unable to reach us at the number above, please feel free to contact [facility] at [phone]. [facility]iology Study observation (narrative)[facility] [place] Chest W contrast IVOrdered By: Ccf Provider on [id number] ClinicCT Chest W contrast [place] 64-88-1776SBAOWQSCAD: 1. On patient's prior PET/CT from 01/29/2023, [...] any questions regarding this interpretation, please call [phone]. If you are unable to reach us at the number above, please feel free to contact [facility] at [phone].DIVISION OF RADIOLOGY* * *Final Report* * * DATE OF EXAM: Mar 14 2023 2:26PM [facility] 0539 - CT CHEST W IVCON [...] No abnormality in the imaged upper abdomen. Mechanical Operator (topogram) images: No additional findings. DIVISION OF RADIOLOGYProvider, [facility] [place] - 03/15/2023 * * *Final Report* * * DATE OF EXAM: Mar 14 2023 2:26PM [facility] 0539 - CT CHEST W IVCON [...] No abnormality in the imaged upper abdomen. Mechanical Operator (topogram) images: No additional findings. IMPRESSION [...] any questions regarding this interpretation, please call [phone]. If you are unable to reach us at the number above, please feel free to contact [facility] at [phone]. [facility] [place] Chest W contrast IVOrdered By: Ccf Provider on 03-15-2023 [facility] [place] Chest W contrast [place] 56-69-3413Deyfkkmvt Study observation (narrative)[facility] SpringfieldGLUCOSE, BLOOD (POC)on 37-82-7083Kfonfek [Mass/Vol] 124 mg/fACvwffrwg12 - 99 mg/dLKettering Health SpringfieldComment on above:Location:[facility], [address] [place] [address] , [place], [place], [facility] The Accu-Chek Inform II glucose meter [...] and review of laboratory resultsAbnormalCleveland [facility] Conneaut Medical CenterPET+CT Guidance for localization of tumor of Skull base to mid-thigh-- W 18F-FDG [place] 21-18-3828TIFNKUCLAT: 1. Neck: No suspicious hypermetabolic foci. Posttreatment [...] any questions regarding this interpretation, please call [phone]. If you are unable to reach us at the number above, please feel free to contact [facility] at [phone].DIVISION OF RADIOLOGY* * *Final Report* * * [...] SKELETON: There are no hypermetabolic osseous lesions. Mechanical Operator (topogram) images:No additional findings. DIVISION OF RADIOLOGYProvider, [facility] [place] - 01/29/2023 * * *Final Report* * [...] SKELETON: There are no hypermetabolic osseous lesions. Mechanical Operator (topogram) images:No additional findings. IMPRESSION IMPRESSION: [...] any questions regarding this interpretation, please call [phone]. If you are unable to reach us at the number above, please feel free to contact [facility] at [phone]. [facility] SpringfieldRadiology Study observation (narrative)[facility] SpringfieldPET+CT Guidance for localization of tumor of Skull base to mid-thigh-- W 18F-FDG IV Ordered By: Ccf Provider on 23-54-4854Vhdmwluxa ClinicComprehensive metabolic 2000 panelon 09-22-1016Wqbmekf [Mass/Vol]4.1 g/dL3.9 - 4.9 g/dLKettering Health [place] ALP [Catalytic activity/Vol]60 U/L38 - 113 U/LCleveland ClinicALT [Catalytic activity/Vol]27 U/L10 - 54 U/LCleveland ClinicAnion gap [Moles/Vol]10 mmol/L9 - 18 mmol/LCleveland ClinicAST [Catalytic activity/Vol]23 U/L14 - 40 U/LCleveland ClinicBilirubin [Mass/Vol]0.5 mg/dL0.2 - 1.3 mg/dLKettering Health SpringfieldCalcium [Mass/Vol]9.5 mg/dL8.5 - 10.2 mg/dLThompson ClinicChloride [Moles/Vol]96 mmol/L Low97 - 105 mmol/LCleveland ClinicCO2 [Moles/Vol]29 mmol/L22 - 30 mmol/L [facility] SpringfieldCreatinine [Mass/Vol]0.96 mg/dL0.73 - 1.22 mg/dLK[facility]tering Health [place] Estimated Glomerular Filtration Rate81 mL/min/1.73m>=60 mL/min/1.73Fairfield Medical CenterGlucose [Mass/Vol]105 mg/dBVbsf04 - 99 mg/dLKettering Health SpringfieldPotassium [Moles/Vol]4.2 mmol/L3.7 - 5.1 mmol/LCleveland ClinicProtein [Mass/Vol]6.8 g/dL 6.3 - 8.0 g/dLThompson ClinicSodium [Moles/Vol]135 mmol/RMws782 - 144 mmol/L [facility] SpringfieldUrea nitrogen [Mass/Vol]22 mg/dL9 - 24 mg/dLOhioHealth [facility] W Auto Differential panel (Bld)on 30-30-6204Nuobznoog (Bld) [#/Vol]<0.11 k/uL [facility] SpringfieldBasophils/100 WBC (Bld)0.4 %[facility] SpringfieldDifferential cell count method Nom (Bld)AutoCleveland ClinicEosinophils (Bld) [#/Vol]0.03 10*3/uL <0.46 k/uLKettering Health SpringfieldEosinophils/100 WBC (Bld)1.3 %[facility] Erythrocyte distribution width (RBC) [Ratio]13.2 %11.5 - 15.0 %[facility] [place] Hematocrit (Bld) [Volume fraction]36.2 %Low39.0 - 51.0 %[facility] Hemoglobin (Bld) [Mass/Vol]12.3 g/dLLow13.0 - 17.0 g/dLKettering Health SpringfieldImmature granulocytes (Bld) [#/Vol]<0.10 k/uLKettering Health SpringfieldImmature granulocytes/100 WBC (Bld)0.4 %[facility] SpringfieldLymphocytes (Bld) [#/Vol]0.27 10*3/uLLow1.00 - 4.00 k/uLKettering Health SpringfieldLymphocytes/100 WBC (Bld)12.0 %[facility]H (RBC) [Entitic mass]30.3 pg26.0 - 34.0 pgClevelRiver's Edge HospitalHC (RBC) [Mass/Vol] 34.0 g/dL30.5 - 36.0 g/dLCleveland ClinicMCV (RBC) [Entitic vol]89.2 fL80.0 - 100.0 fLCleveland ClinicMonocytes (Bld) [#/Vol]0.23 10*3/uL<0.87 k/uLThompson ClinicMonocytes/100 WBC (Bld)10.2 %[facility] SpringfieldNeutrophils (Bld) [#/Vol]1.70 10*3/uL1.45 - 7.50 k/uLThompson ClinicNeutrophils/100 WBC (Bld)75.7 %[facility] SpringfieldNucleated RBC (Bld) [#/Vol]<0.01 k/uLKettering Health SpringfieldNucleated RBC/100 WBC (Bld) [Ratio]0.0 /100 WBCKettering Health SpringfieldPlatelet mean volume (Bld) [Entitic vol]9.5 fL9.0 - 12.7 fLClevelunc health ClinicPlatelets (Bld) [#/Vol]97 10*3/mFNfk006 - 400 k/uLKettering Health SpringfieldRBC (Bld) [#/Vol]4.06 10*6/uLLow4.20 - 6.00 m/uL [facility] SpringfieldWBC (Bld) [#/Vol]2.25 10*3/uLLow3.70 - 11.00 k/uLKettering Health SpringfieldComprehensive metabolic 2000 panelon [id number] [Mass/Vol]4.2 g/dL 3.9 - 4.9 g/dLThompson ClinicALP [Catalytic activity/Vol]69 U/L38 - 113 U/L [facility] ClinicALT [Catalytic activity/Vol]21 U/L10 - 54 U/LCleveland Clinic Anion gap [Moles/Vol]11 mmol/L9 - 18 mmol/LCleveland ClinicAST [Catalytic activity/Vol]14 U/L14 - 40 U/LCleveland ClinicBilirubin [Mass/Vol]0.6 mg/dL0.2 - 1.3 mg/dLThompson ClinicCalcium [Mass/Vol]9.7 mg/dL8.5 - 10.2 mg/dLThompson ClinicChloride [Moles/Vol]99 mmol/L97 - 105 mmol/LCleveland ClinicCO2 [Moles/Vol]26 mmol/L22 - 30 mmol/LCleveland ClinicCreatinine [Mass/Vol]0.94 mg/dL0.73 - 1.22 mg/dLKettering Health SpringfieldEstimated Glomerular Filtration Rate83 mL/min/1.73m>=60 mL/min/1.73mCleveland [facility] Medical CenterGlucose [Mass/Vol]119 mg/zNLsxh22 - 99 mg/dLKettering Health SpringfieldPotassium [Moles/Vol]4.1 mmol/L3.7 - 5.1 mmol/L [facility] ClinicProtein [Mass/Vol]6.7 g/dL6.3 - 8.0 g/dLThompson ClinicSodium [Moles/Vol]136 mmol/L136 - 144 mmol/LCleveland [facility] Medical CenterUrea nitrogen [Mass/Vol]20 mg/dL9 - 24 mg/dLOhioHealth Doctors Hospital W Auto Differential panel (Bld)on [id number] (Bld) [#/Vol]<0.11 k/uLKettering Health SpringfieldBasophils/100 WBC (Bld)0.2 %[facility] SpringfieldDifferential cell count method Nom (Bld)AutoCleveland ClinicEosinophils (Bld) [#/Vol]0.04 10*3/uL<0.46 k/uLK[facility]tering Health [place] Eosinophils/100 WBC (Bld)0.8 %[facility] SpringfieldErythrocyte distribution width (RBC) [Ratio]13.1 %11.5 - 15.0 %[facility] SpringfieldHematocrit (Bld) [Volume fraction]39.8 %39.0 - 51.0 %[facility] SpringfieldHemoglobin (Bld) [Mass/Vol]13.4 g/dL 13.0 - 17.0 g/dLKettering Health SpringfieldImmature granulocytes (Bld) [#/Vol]<0.10 k/uL [facility] SpringfieldImmature granulocytes/100 WBC (Bld)0.4 %[facility] Lymphocytes (Bld) [#/Vol]0.40 10*3/uLLow1.00 - 4.00 k/uLK[facility]tering Health [place] Lymphocytes/100 WBC (Bld)7.8 %[facility]H (RBC) [Entitic mass]30.3 pg 26.0 - 34.0 pgCleveland Northwest Medical CenterHC (RBC) [Mass/Vol]33.7 g/dL30.5 - 36.0 g/dL [facility] SpringfieldMCV (RBC) [Entitic vol]90.0 fL80.0 - 100.0 fLClevelunc health Clinic Monocytes (Bld) [#/Vol]0.34 10*3/uL<0.87 k/uLKettering Health SpringfieldMonocytes/100 WBC (Bld)6.6 %[facility] SpringfieldNeutrophils (Bld) [#/Vol]4.31 10*3/uL1.45 - 7.50 k/uL [facility] SpringfieldNeutrophils/100 WBC (Bld)84.2 %[facility] SpringfieldNucleated RBC (Bld) [#/Vol]<0.01 k/uLKettering Health SpringfieldNucleated RBC/100 WBC (Bld) [Ratio]0.0 /100 WBCKettering Health SpringfieldPlatelet mean volume (Bld) [Entitic vol]9.4 fL9.0 - 12.7 fLCLima Memorial HospitalPlatelets (Bld) [#/Vol]198 10*3/uL150 - 400 k/uLKettering Health SpringfieldRBC (Bld) [#/Vol]4.42 10*6/uL4.20 - 6.00 m/uLKettering Health SpringfieldWBC (Bld) [#/Vol]5.12 10*3/uL3.70 - 11.00 k/uLK[facility]tering Health SpringfieldComprehensive metabolic 2000 panelon [id number] [Mass/Vol]4.4 g/dL3.9 - 4.9 g/dLThompson ClinicALP [Catalytic activity/Vol]70 U/L38 - 113 U/LCleveland ClinicALT [Catalytic activity/Vol]22 U/L10 - 54 U/LCleveland ClinicAnion gap [Moles/Vol]8 mmol/LLow9 - 18 mmol/LCleveland ClinicAST [Catalytic activity/Vol]15 U/L14 - 40 U/L [facility] SpringfieldBilirubin [Mass/Vol]0.4 mg/dL0.2 - 1.3 mg/dLK[facility] Calcium [Mass/Vol]9.8 mg/dL8.5 - 10.2 mg/dLK[facility]tering Health SpringfieldChloride [Moles/Vol] 99 mmol/L97 - 105 mmol/LCleveland ClinicCO2 [Moles/Vol]28 mmol/L22 - 30 mmol/L [facility] SpringfieldCreatinine [Mass/Vol]0.83 mg/dL0.73 - 1.22 mg/dLK[facility] [place] Estimated Glomerular Filtration Rate90 mL/min/1.73m>=60 mL/min/1.73mCleveland ClinicGlucose [Mass/Vol]125 mg/xPNjtk53 - 99 mg/dLK[facility]tering Health SpringfieldPotassium [Moles/Vol]4.1 mmol/L3.7 - 5.1 mmol/LCleveland ClinicProtein [Mass/Vol]6.8 g/dL 6.3 - 8.0 g/dLCleveland Clinic Euclid Hospitalodium [Moles/Vol]135 mmol/WRaj186 - 144 mmol/L [facility] SpringfieldUrea nitrogen [Mass/Vol]28 mg/dLHigh9 - 24 mg/dLK[facility] [place] PET+CT Guidance for localization of tumor of Skull base to mid-thigh-- W 18F-FDG Kinga 10-27-9547AFLCNZWUWR: 1. NECK: * Intensely FDG avid left [...] any questions regarding this interpretation, please call [phone]. If you are unable to reach us at the number above, please feel free to contact [facility] eRadiology at [phone].DIVISION OF RADIOLOGY* * *Final Report* * * [...] age-related degenerative changes. No destructive osseous lesions. Mechanical Operator (topogram) images: No additional findings. DIVISION OF RADIOLOGYProvider, [facility] [place] - 08/28/2022 * * *Final Report* * [...] age-related degenerative changes. No destructive osseous lesions. Mechanical Operator (topogram) images: No additional findings. IMPRESSION [...] any questions regarding this interpretation, please call [phone]. If you are unable to reach us at the number above, please feel free to contact [facility] e[facility]iology at [phone]. [facility] SpringfieldPET+CT Guidance for localization of tumor of Skull base to mid-thigh-- W 18F-FDG IVOrdered By: Ccf Provider on 79-49-5295Rqfhymnhn Clinic GLUCOSE, BLOOD (POC)on 72-39-9362Pprvndb [Mass/Vol]137 mg/xFFxohmlpb24 - 99 mg/dLKettering Health SpringfieldComment on above:Location:[facility], [address] [place] [address] , [place], [place], [facility] The Accu-Chek Inform II glucose meter [...] above situations. Interpretation and review of laboratory resultsAbnormalCThe Bellevue HospitalPET+CT Guidance for localization of tumor of Skull base to mid-thigh-- W 18F-FDG Kinga 54-41-8050Gkluiacbg Study observation (narrative)[facility] CBC W Auto Differential panel (Bld)on [id number] (Bld) [#/Vol]0.05 10*3/uL<0.11 k/uLKettering Health SpringfieldBasophils/100 WBC (Bld)0.8 %[facility] Differential cell count method Nom (Bld)AutoCleveland ClinicEosinophils (Bld) [#/Vol]0.05 10*3/uL<0.46 k/uLKettering Health SpringfieldEosinophils/100 WBC (Bld)0.8 % [facility] SpringfieldErythrocyte distribution width (RBC) [Ratio]13.2 %11.5 - 15.0 % [facility] SpringfieldHematocrit (Bld) [Volume fraction]43.8 %39.0 - 51.0 %[facility] SpringfieldHemoglobin (Bld) [Mass/Vol]14.7 g/dL13.0 - 17.0 g/dLK[facility] [place] Immature granulocytes (Bld) [#/Vol]<0.10 k/uLKettering Health SpringfieldImmature granulocytes/100 WBC (Bld)0.3 %[facility] SpringfieldLymphocytes (Bld) [#/Vol]1.55 10*3/uL1.00 - 4.00 k/uLKettering Health SpringfieldLymphocytes/100 WBC (Bld)25.7 %[facility] AndersonH (RBC) [Entitic mass]30.6 pg26.0 - 34.0 pgClevelRiver's Edge HospitalHC (RBC) [Mass/Vol]33.6 g/dL30.5 - 36.0 g/dLOur Lady of Mercy Hospital - AndersonV (RBC) [Entitic vol]91.3 fL80.0 - 100.0 fLCleveland ClinicMonocytes (Bld) [#/Vol]0.51 10*3/uL<0.87 k/uL [facility] SpringfieldMonocytes/100 WBC (Bld)8.5 %[facility] SpringfieldNeutrophils (Bld) [#/Vol]3.85 10*3/uL1.45 - 7.50 k/uLKettering Health SpringfieldNeutrophils/100 WBC (Bld)63.9 %[facility] SpringfieldNucleated RBC (Bld) [#/Vol]<0.01 k/uLK[facility]tering Health SpringfieldNucleated RBC/100 WBC (Bld) [Ratio]0.0 /100 WBCKettering Health SpringfieldPlatelet mean volume (Bld) [Entitic vol]9.4 fL9.0 - 12.7 fLCleveland ClinicPlatelets (Bld) [#/Vol]340 10*3/uL150 - 400 k/uLKettering Health SpringfieldRBC (Bld) [#/Vol]4.80 10*6/uL4.20 - 6.00 m/uLKettering Health SpringfieldWBC (Bld) [#/Vol]6.03 10*3/uL3.70 - 11.00 k/uLK[facility]tering Health SpringfieldComprehensive metabolic 2000 panelon 50-26-5126Qzuufuu [Mass/Vol]4.6 g/dL 3.9 - 4.9 g/dLThompson ClinicALP [Catalytic activity/Vol]66 U/L38 - 113 U/L [facility] ClinicALT [Catalytic activity/Vol]16 U/L10 - 54 U/LCleveland Clinic Anion gap [Moles/Vol]8 mmol/LLow9 - 18 mmol/LCleveland ClinicAST [Catalytic activity/Vol]19 U/L14 - 40 U/LCleveland ClinicBilirubin [Mass/Vol]0.5 mg/dL0.2 - 1.3 mg/dLThompson ClinicCalcium [Mass/Vol]10.0 mg/dL8.5 - 10.2 mg/dLThompson ClinicChloride [Moles/Vol]102 mmol/L97 - 105 mmol/LCleveland ClinicCO2 [Moles/Vol]30 mmol/L22 - 30 mmol/LCleveland ClinicCreatinine [Mass/Vol]0.97 mg/dL0.73 - 1.22 mg/dLK[facility]tering Health SpringfieldEstimated Glomerular Filtration Rate80 mL/min/1.73m>=60 mL/min/1.73mCleveland ClinicGlucose [Mass/Vol]101 mg/fLRpvm03 - 99 mg/dLK[facility]tering Health SpringfieldPotassium [Moles/Vol]4.5 mmol/L3.7 - 5.1 mmol/L [facility] ClinicProtein [Mass/Vol]7.5 g/dL6.3 - 8.0 g/dLThompson ClinicSodium [Moles/Vol]140 mmol/L136 - 144 mmol/LCleveland ClinicUrea nitrogen [Mass/Vol]18 mg/dL9 - 24 mg/dLK[facility]tering Health SpringfieldPOINT OF CARE GLUCOSEon 41-51-6644Dzctgmn [Mass/Vol]149 mg/dLCritically xzem55-880Urp [facility] HospitalComment on above: Performed By: #### POCGLUC #### [facility] [address] [address] [address] Mikayla Blandon [id number] From: Violet Guidry LPN To: [facility] - Clinical; Sent: 07/31/2022 13:14:12 EST Show up: 06/17/2024 07:00:00 EST Subject: colonoscopy recall Due Date/Time: 07/18/2024 07:00:00 EST Reminder/Recall Patient is due for colonoscopy 07/18/2024 due to history of tubular adenoma. Correction, due 07/18/2025.[facility] AUTO DIFFon 09-25-7483EIPE #0.0 103/ulNormal0.0-0.1The [facility] Private HospitalComment on above: Performed By: #### CBC #### [facility] [address] [address] [address] Mikayla GalanBasophils/100 WBC (Bld)0.4 %Normal0.2-2.0[facility] Comment on above:Performed By: #### CBC #### [facility] [address] [address] [address] Mikayla Amor #0.1 103/ulNormal0.0-0.7The [facility] HospitalComment on above: Performed By: #### CBC #### [facility] [address] [place] [address] Dr. Mikayla Gaonaosinophils/100 WBC (Bld)1.5 %Normal0.9-7.0[facility] Comment on above:Performed By: #### CBC #### [facility] [address] [address] [address] Mikayla Gaonarythrocyte distribution width (RBC) [Ratio]13.2 %Lfyzfc90.0-15.0 [facility] CenterComment on above:Performed By: #### CBC #### [facility] [address] [place] [address] Dr. Mikayla GalanHematocrit (Bld) [Volume fraction]41.7 %Critically low42.0-54.0 [facility] CenterComment on above:Performed By: #### CBC #### [facility] [address] [address] [address] Mikayla GalanHemoglobin (Bld) [Mass/Vol]13.9 g/dLCritically low14.0-18.0The [facility] HospitalComment on above:Performed By: #### CBC #### [facility] [address] [address] [address] Mikayla Eden #0.02 10e3/ulNormal0.00-0.03The [place] HospitalComment on above:Performed By: #### CBC #### [facility] [address] [place] [address] Dr. Mikayla Eden %0.4 %Normal0.0-0.5The [facility] Private HospitalComment on above: Performed By: #### CBC #### [facility] [address] [place] [address] Dr. Mikayla Domingo #1.1 103/ulCritically low1.2-3.8The [facility] Comment on above:Performed By: #### CBC #### [facility] [address] [address] [address] Mikayla Acunahocytes/100 WBC (Bld)24.7 %Qwrxjw82.5-60.0The [facility] Private HospitalComment on above:Performed By: #### CBC #### [facility] [address] [address] [address] Mikayla LiuUAL DIFF REQNONormalThe [facility] Private HospitalComment on above: Performed By: #### CBC #### [facility] [address] [address] [address] Mikayla Castillo (RBC) [Entitic mass]30.5 ctMxfhuv29.9-34.0The [facility] Private HospitalComment on above:Performed By: #### CBC #### [facility] [address] [address] [address] Mikayla Castillo (RBC) [Mass/Vol]33.3 g/nPJlzhgj99.9-35.2The [facility] Private HospitalComment on above:Performed By: #### CBC #### [facility] [address] [address] [address] Mikayla CastilloV (RBC) [Entitic vol]91.4 rNPgamjb82.0-94.0The [facility] HospitalComment on above:Performed By: #### CBC #### [facility] [address] [address] [address] Mikayla Davidson #0.4 103/ulNormal0.3-0.8The [place] HospitalComment on above:Performed By: #### CBC #### [facility] [address] [address] [address] Mikayla Del Rioocytes/100 WBC (Bld)8.4 %Normal1.7-12.0The [facility] on above:Performed By: #### CBC #### [facility] [address] [place] [address] Dr. Mikayla Marr #2.9 103/ulNormal1.4-6.5The [facility] HospitalComment on above:Performed By: #### CBC #### [facility] [address] [place] [address] Dr. Mikayla Nevilleutrophils/100 WBC (Bld)64.6 %Imbeqd91.0-75.0The [facility] Private HospitalComment on above:Performed By: #### CBC #### [facility] [address] [place] [address] Dr. Mikayla Petersenlet mean volume (Bld) [Entitic vol]9.5 fLNormal9.5-13.5The [facility] Private HospitalComment on above:Performed By: #### CBC #### [facility] [address] [place] [address] Dr. Mikayla GalanPLT293 103/xiKdkymm155-246Tli [facility] HospitalComment on above: Performed By: #### CBC #### [facility] [address] [place] [address] Dr. Mikayla GalanRBC4.56 106/ulCritically low4.70-6.10The [facility] Private HospitalComment on above:Performed By: #### CBC #### [facility] [address] [place], [place] [address] Dr. Mikayla GalanWBC4.5 103/ulNormal4.0-11.0The [facility] HospitalCommunson healthcare cad[facility] on above: Performed By: #### CBC #### [facility] [address] [place], [place] [address] [address] Galan[address] NEC[address] W CONon 69-32-8930MI NECK ST W CONEXAMINATION: CT NECK ST [...] Electronically authenticated by: CHAU JUNG Date: 2022-07-27 13:04Gal[facility] HospitalCovid-19 PCR (CVDTBH)on 77-88-7737LNHD-CoV-2 (COVID-19) RNA IRIS+probe Ql (Unsp spec)Not detectedNormalNOT DETECTEDThe [facility] Comment on above:Result Comment: This test is not yet approved or cleared by the [place] FDA. When there are no FDA-approved or cleared tests available, and other criteria are met, FDA can make tests available under an emergency access mechanism called an Emergency Use Authorization (EUA). The EUA for this test is supported by the [place] of Health and Human Service's (HHS's) declaration [...] consistent with SARS-CoV-2.Performed By: #### POCGLUC #### [facility] [address] [place] [address] Dr. Mikayla GalanPROF CHEM 8 (BAS METB)on 78-73-8783Fwnjx gap [Moles/Vol]10.2 mmol/LNormalLouis Stokes [facility] Va Medical CenterComment on above:Performed By: #### BMP #### [facility] [address] [place] [address] Dr. Mikayla GalanCalcium [Mass/Vol]9.2 mg/dLNormal8.5-10.1[facility] Comment on above:Performed By: #### BMP #### [facility] [address] [place] [address] Dr. Mikayla GalanChloride [Moles/Vol]103 mmol/QCkmzyf69-260Toh [facility] Comment on above:Performed By: #### BMP #### [facility] [address] [place] [address] Dr. Mikayla GalanCO2 [Moles/Vol]31.3 mmol/FHkybvk69.0-32.0The [facility] Comment on above:Performed By: #### BMP #### [facility] [address] [address] [address] Mikayla GalanCreatinine [Mass/Vol]0.98 mg/dLNormal0.70-1.30The [facility] HospitalComment on above:Performed By: #### BMP #### [facility] [address] [address] [address] Mikayla GaonaGFR-AF QATARI>60Normal>=60The [facility] Private HospitalComment on above:Performed By: #### BMP #### [facility] [address] [address] [address] Mikayla GaonaGFR-NON AF QATARI>60Normal>=60The [facility] Private HospitalComment on above:Performed By: #### BMP #### [facility] [address] [address] [address] Mikayla GalanGlucose [Mass/Vol]133 mg/dLCritically tvpf88-993Eai [facility] HospitalComment on above:Performed By: #### BMP #### [facility] [address] [address] [address] Mikayla GalanPotassium [Moles/Vol]4.5 mmol/LNormal3.5-5.1[facility] Comment on above:Performed By: #### BMP #### [facility] [address] [address] [address] Mikayla GalanSodium [Moles/Vol]140 mmol/YDwcapl195-517Mnd [facility] Comment on above:Performed By: #### BMP #### [facility] [address] [address] [address] Mikayla GalanUrea nitrogen [Mass/Vol]21.0 mg/dLCritically high7.0-18.0The [facility] HospitalComment on above:Performed By: #### BMP #### [facility] [address] [address] [address] Mikayla GalanUrea nitrogen/Creatinine [Mass ratio]21.4 mg/mgNormalThe [facility] Private HospitalComment on above:Performed By: #### BMP #### [facility] [address] [place] [address] Dr. Mikayla GalanPROTIMEon 90-06-4033IRG Coag (PPP) [Relative time]1.04 {INR} NormalLouis Stokes Cleveland Va Medical CenterComment on above:Performed By: #### PT, PTT #### [facility] [address] [place] [address] Dr. Mikayla Su GUIDELINESSEE BELOWNormalThCleveland Clinic Marymount HospitalComment on above:Result Comment: DESIRED INR: 2.0 - 3.0 CONDITIONS NOT LISTED BELOW 2.5 - 3.5 FOR PROSTHETIC HEART VALVE REPLACEMENT 2.5 - 3.5 RECURRENT THROMBOSIS Performed By: #### PT, PTT #### [facility] [address] [place] [address] Dr. Mikayla Shah Coag (PPP) [Time]11.0 sNormal9.0-11.6ThCleveland Clinic Marymount Hospital Comment on above:Performed By: #### PT, PTT #### [facility] [address] [place] [address] Dr. Mikayla ShahTon 00-29-5947dMFO Coag (Bld) [Time]28.6 nUwhavp38.3-36.2[facility] CenterComment on above:Performed By: #### POCGLUC #### [facility] [address] [place] [address] Dr. Mikayla GalanPathology Noteon 80-41-6608Vrtkkugkh Note [id number]#1.00CD:127[facility] HospitalOutside Colonoscopyon 63-34-5218Ehjabgt Colonoscopy [id number]#1.00CD:127[facility] HospitalPOINT OF CARE GLUCOSEon 74-46-4585Macvcbe [Mass/Vol]94 mg/eXNdrbcv10-580 [facility] CenterComment on above:Performed By: #### POCGLUC #### [facility] [address] [place] [address] Dr. Mikayla Horan Reportson 20-58-9534Prp Reports [id number]#1.00CD:127NoTrinity Health System West CampusCovid-19 PCR (CVDTB)on 93-60-9577OJKP-CoV-2 (COVID-19) RNA IRIS+probe Ql (Unsp spec)Not detectedNormalNOT DETECTEDThe [facility] HospitalComment on above: Result Comment: This test is not yet approved or cleared by the [place] FDA. When there are no FDA-approved or cleared tests available, and other criteria are met, FDA can make tests available under an emergency access mechanism called an Emergency Use Authorization (EUA). The EUA for this test is supported by the [place] of Health and Human Service's (HHS's) declaration [...] consistent with SARS-CoV-2.Performed By: #### POCGLUC #### [facility] [address] [place] [address] Dr. Mikayla Lawrence for Procedure/Surgeryon 67-04-7064Mwxcolm for Procedure/[id number]#1.00CD:127NoTrinity Health System West CampusUS THYROIDon 34-73-2107UO THYROIDEXAMINATION: US THYROID HISTORY: Goiter COMPARISON: No [...] Electronically authenticated by: QUANG JOHNSON Date: 2022-06-11 07:17NormalThe [place] [facility] HospitalProvider Letteron [id number] Letter May 15, 2022 [address] [place] [id number] MANISH ROOT 1945 Dear Manish , We have been trying to reach you with no success. It is important that you return our call regarding your referral from Dr. Nelson upon receiving this letter. Also, at the time of your call, please provide us with your current information. Thank you for your prompt attention to this matter. Sincerely, General Surgery [phone]leness HospitalCB AUTO DIFFon 29-53-7510HHTU #0.0 103/ulNormal0.0-0.1The [facility] Private HospitalComment on above:Performed By: #### CBC #### [facility] [address] [address] [address] Mikayla GalanBasophils/100 WBC (Bld)0.6 %Normal0.2-2.0[facility] Comment on above:Performed By: #### CBC #### [facility] [address] [address] [address] Mikayla Amor #0.1 103/ulNormal0.0-0.7The [facility] HospitalComment on above: Performed By: #### CBC #### [facility] [address] [address] [address] Mikayla Gaonaosinophils/100 WBC (Bld)1.4 %Normal0.9-7.0The [facility] Comment on above:Performed By: #### CBC #### [facility] [address] [address] [address] Mikayla Gaonarythrocyte distribution width (RBC) [Ratio]12.6 %Pqcbgc01.0-15.0 The [facility] Private HospitalComment on above:Performed By: #### CBC #### [facility] [address] [address] [address] Mikayla GalanHematocrit (Bld) [Volume fraction]41.8 %Critically low42.0-54.0 The [facility] Private HospitalComment on above:Performed By: #### CBC #### [facility] [address] [place] [address] Dr. Mikayla GalanHemoglobin (Bld) [Mass/Vol]13.9 g/dLCritically low14.0-18.0The [facility] HospitalComment on above:Performed By: #### CBC #### [facility] [address] [place] [address] Dr. Mikayla Eden #0.03 10e3/ulNormal0.00-0.03The [facility] HospitalComment on above:Performed By: #### CBC #### [facility] [address] [place] [address] Dr. Mikayla Eden %0.6 %Critically high0.0-0.5The [facility] Private HospitalComment on above:Performed By: #### CBC #### [facility] [address] [place] [address] Dr. Mikayla Domingo #1.0 103/ulCritically low1.2-3.8The [facility] Comment on above:Performed By: #### CBC #### [facility] [address] [place] [address] Dr. Mikayla Leónmphocytes/100 WBC (Bld)19.9 %Critically low20.5-60.0The [facility] Private HospitalComment on above:Performed By: #### CBC #### [facility] [address] [place] [address] Dr. Mikayla LiuUAL DIFF REQNONormalThe [facility] Private HospitalComment on above: Performed By: #### CBC #### [facility] [address] [place] [address] Dr. Mikayla You (RBC) [Entitic mass]31.0 bgTdzfmo02.9-34.0The [facility] HospitalComment on above:Performed By: #### CBC #### [facility] [address] [address] [address] Mikayla CastilloHC (RBC) [Mass/Vol]33.3 g/qFMnwlaf95.9-35.2The [facility] HospitalComment on above:Performed By: #### CBC #### [facility] [address] [place] [address] Dr. Mikayla CastilloV (RBC) [Entitic vol]93.3 nDIkrkak69.0-94.0The [facility] HospitalComment on above:Performed By: #### CBC #### [facility] [address] [place] [address] Dr. Mikayla Davidson #0.5 103/ulNormal0.3-0.8The [facility] HospitalComment on above:Performed By: #### CBC #### [facility] [address] [place] [address] Dr. Mikayla Del Rioocytes/100 WBC (Bld)8.9 %Normal1.7-12.0The [facility] Comment on above:Performed By: #### CBC #### [facility] [address] [place] [address] Dr. Mikayla Marr #3.5 103/ulNormal1.4-6.5The [facility] HospitalComment on above:Performed By: #### CBC #### [facility] [address] [place] [address] Dr. Mikayla Nevilleutrophils/100 WBC (Bld)68.6 %Cgkmgm77.0-75.0The [facility] HospitalComment on above:Performed By: #### CBC #### [facility] [address] [place] [address] Dr. Mikayla Petersenlet mean volume (Bld) [Entitic vol]9.6 fLNormal9.5-13.5The [facility] HospitalComment on above:Performed By: #### CBC #### [facility] [address] [place] [address] Dr. Mikayla GalanPLT280 103/anHvhilw250-464Aps [facility] HospitalComment on above: Performed By: #### CBC #### [facility] [address] [address] [address] Mikayla GalanRBC4.48 106/ulCritically low4.70-6.10The [facility] HospitalCommun[facility] on above:Performed By: #### CBC #### [facility] [address] [place] [address] Dr. Mikayla GalanWBC5.1 103/ulNormal4.0-11.0[facility] on above: Performed By: #### CBC #### [facility] [address] [place] [address] Dr. Mikayla GalanGLYCOHEMOGLOBIN A1Con [id number] RECOMMENDATIONSEE BELOWNormal The [facility] HospitalCommun[facility] on above:Result Comment: ADA RECOMMENDED LIMIT 4.0 - 6.0 ADA THERAPEUTIC TARGET < 7.0 ACTION SUGGESTED > 7.0Performed By: #### A1C #### [facility] [address] [place] [address] Dr. Mikayla GalanGlucose [Mass/Vol]183 mg/dLNormalThe [facility] HospitalCommunson [facility] on above:Performed By: #### A1C #### [facility] [address] [place] [address] Dr. Mikayla GalanHbA1c (Bld) [Mass fraction]8.0 %Critically high4.5-6.2[facility] on above:Performed By: #### A1C #### [facility] [address] [place] [address] Dr. Mikayla GalanPROF 14(COMP METB)on [id number] [Mass/Vol]3.8 g/dLNormal 3.4-5.0[facility] on above:Performed By: #### CMP #### [facility] [address] [place] [address] Dr. Mikayla GalanAlbumin/Globulin [Mass ratio]1.2 {ratio}NormalThe [facility] on above:Performed By: #### CMP #### [facility] [address] [place] [address] Dr. Mikayla PeñaP [Catalytic activity/Vol]111 U/BDjwuew53-810Pyp [facility] HospitalComment on above:Performed By: #### CMP #### [facility] [address] [address] [address] Mikayla PeñaT [Catalytic activity/Vol]50 U/LXfradu72-28Zkv [facility] HospitalComment on above:Performed By: #### CMP #### [facility] [address] [address] [address] Mikayla Vergara gap [Moles/Vol]11.5 mmol/LNormalLouis [facility] Comment on above:Performed By: #### CMP #### [facility] [address] [place] [address] Dr. Mikayla GalanAST [Catalytic activity/Vol]27 U/KPitzhk83-94Mkg [facility] HospitalComment on above:Performed By: #### CMP #### [facility] [address] [place] [address] Dr. Mikayla GalanBilirubin [Mass/Vol]0.5 mg/dLNormal0.2-1.0[facility] Comment on above:Performed By: #### CMP #### [facility] [address] [place] [address] Dr. Mikayla GalanCalcium [Mass/Vol]9.0 mg/dLNormal8.5-10.1[facility] Comment on above:Performed By: #### CMP #### [facility] [address] [place] [address] Dr. Mikayla GalanChloride [Moles/Vol]101 mmol/BQnxpjm43-178Ngd [facility] Comment on above:Performed By: #### CMP #### [facility] [address] [place] [address] Dr. Mikayla GalanCO2 [Moles/Vol]27.7 mmol/BYaaozl65.0-32.0The [facility] Comment on above:Performed By: #### CMP #### [facility] [address] [place] [address] Dr. Mikayla GalanCreatinine [Mass/Vol]1.17 mg/dLNormal0.70-1.30The [facility] HospitalComment on above:Performed By: #### CMP #### [facility] [address] [place] [address] Dr. Mikayla GaonaGFR-AF QATARI>60Normal>=60The [facility] HospitalComment on above:Performed By: #### CMP #### [facility] [address] [address] [address] Mikayla GaonaGFR-NON AF QATARI=60Normal>=60The [facility] HospitalComment on above:Performed By: #### CMP #### [facility] [address] [place] [address] Dr. Mikayla GalanGlobulin (S) [Mass/Vol]3.3 g/dLNormalThe [facility] HospitalComment on above:Performed By: #### CMP #### [facility] [address] [place] [address] Dr. Mikayla GalanGlucose [Mass/Vol]233 mg/dLCritically pkzy58-104ZzcTriHealth Good Samaritan Hospitalment on above:Performed By: #### CMP #### [facility] [address] [place] [address] Dr. Mikayla GalanPotassium [Moles/Vol]4.2 mmol/LNormal3.5-5.1The [facility] Comment on above:Performed By: #### CMP #### [facility] [address] [place] [address] Dr. Mikayla GalanProtein [Mass/Vol]7.1 g/dLNormal6.4-8.2[facility] Comment on above:Performed By: #### CMP #### [facility] [address] [place] [address] Dr. Mikayla GalanSodium [Moles/Vol]136 mmol/PQajcqx522-517KdtLouis Stokes Cleveland Va [facility] Center Comment on above:Performed By: #### CMP #### [facility] [address] [place] [address] Dr. Mikayla GalanUrea nitrogen [Mass/Vol]15.0 mg/dLNormal7.0-18.0The [facility] HospitalComment on above:Performed By: #### CMP #### [facility] [address] [address] [address] Mikayla GalanUrea nitrogen/Creatinine [Mass ratio]12.8 mg/mgNoSouthview Medical CenterComment on above:Performed By: #### CMP #### [facility] [address] [address] [address] Mikayla GalanPhysician Referralon [id number] Referral [id number]#1.00CD:127[facility] Vital Signs Date TimeVital SignValuePerforming KxgbfcrlvThplaxqq86-44-2043 11:43-0400Body hhahnp862.2 cmMason Johnson MD Work Phone: [phone] CenterGlajjmgdfs64-19-6398 11:43-0400Body mass index (BMI) [Ratio]30.85 kg/d2GiiwppMason Johnson MD Work Phone: [phone] CenterFntnruvwhk15-80-9827 11:43-0400Body lazyjr60.36 kgMason Johnson MD Work Phone: [phone] CenterJohn [facility]. [facility] Medical CenterMqbbcxcyaq08-39-3629 11:43-0400Diastolic blood mm[Hg]Mason Johnson MD Work Phone: [phone]0431[facility] CenterCgvfwtjesa79-88-8006 11:43-0400Heart rate70 /min Mason Johnson MD Work Phone: [phone] CenterNmdzrbsxil31-21-7405 11:43-9699YhG0% (BldA) [Mass fraction]97 %Mason Johnson MD Work Phone: [phone] CenterQjkxgvkygi41-75-2732 11:43-0400Systolic blood ickbnacs301 mm[Hg]Mason Johnson MD Work Phone: [phone] CenterFhwcmfymyr20-24-7544 08:00-0400Body zibyxk047.2 cmSerene Morales MD Work Phone: [facility] CenterQkuavthzyc95-84-7233 08:00-0400Body mass index (BMI) [Ratio]31.32 kg/n4OncdwkSerene Morales MD Work Phone: [facility] CenterNsdodnvcza45-94-8379 08:00-0400Body xuigeb72.72 kgSerene Morales MD Work Phone: [facility] CenterZvmxydnuis52-95-8340 08:00-0400Diastolic blood gmmavxsr38 mm[Hg]Serene Morales MD Work Phone: [facility] CenterNsemtuukbc16-86-3599 08:00-0400Heart rate74 /min Serene Morales MD Work Phone: [phone]-7688[facility] CenterQygvavhehb04-96-0911 08:00-0400Systolic blood nefdeyee639 mm[Hg]Serene Morales MD Work Phone: [facility] CenterBqzvxuonoy46-62-3666 10:56-0400Body pzyndf602.2 cmMason Johnson MD Work Phone: [facility] CenterKftznlcbjb90-74-5122 10:56-0400Body mass index (BMI) [Ratio]31.32 kg/r9BmlvmcMason Johnson MD Work Phone: [phone] CenterZflsbpwhqf80-98-5880 10:56-0400Body .72 kgMason Johnson MD Work Phone: [facility] CenterHhbxczezey93-76-5471 10:56-0400Diastolic blood utpovpdy12 mm[Hg]Mason Johnson MD Work Phone: [facility] CenterDbultwcmyt81-07-4425 10:56-0400Heart rate64 /min Mason Johnson MD Work Phone: [facility] CenterCvkpfovhng24-94-9334 10:56-8803QsF5% (BldA) [Mass fraction]97 %Mason Johnson MD Work Phone: [phone] CenterDyvmesqyky90-84-4893 10:56-0400Systolic blood weigvete421 mm[Hg]Mason Johnson MD Work Phone: [facility] CenterEpbkfcbimd20-98-0559 08:10-0400Body .2 cmSerene Morales MD Work Phone: [facility] CenterAlscqzptks94-07-9934 08:10-0400Body mass index (BMI) [Ratio]31.48 kg/d9GgpyutSerene Morales MD Work Phone: [phone]-9172[facility] CenterItaqdsffqf59-05-0413 08:10-0400Body vannnb87.17 kgSerene Morales MD Work Phone: [phone]-8856[facility] CenterJoolevbwqe72-57-1314 08:10-0400Diastolic blood lfodjanr41 mm[Hg]Serene Morales MD Work Phone: [phone]3457[facility] CenterZqkbargjbv02-28-3591 08:10-0400Heart rate57 /min Serene Morales MD Work Phone: [phone]-1419[facility] CenterGlcwpwsdye77-06-6676 08:10-0400Systolic blood tghsavey689 mm[Hg]Serene Morales MD Work Phone: [phone]-0109[facility] CenterMfciuoczoo43-21-8335 09:01-0400Body nleznt580.2 cmDalaron Johnson MD Work Phone: [facility] CenterFwkmbpbpcf93-58-3118 09:01-0400Body mass index (BMI) [Ratio]31.17 kg/p2GyklnnMason Johnson MD Work Phone: [facility] CenterBzddywvwno92-77-0536 09:01-0400Body mdwmab51.27 kgMason Johnson MD Work Phone: [facility] CenterTnwgwsjtsr85-75-2141 09:01-0400Diastolic blood zkdwvpio80 mm[Hg]Mason Johnson MD Work Phone: [facility] CenterDnnhqzsznj06-73-6317 09:01-0400Heart rate60 /min Mason Johnson MD Work Phone: [facility] CenterTkyspzdlmr13-95-1552 09:01-5907RvU6% (BldA) [Mass fraction]96 %Mason Johnson MD Work Phone: [facility] CenterCnekznbgts67-48-8583 09:01-0400Systolic blood hzaqzxdk061 mm[Hg]Mason Johnson MD Work Phone: [facility] CenterOwcjcsqipv45-27-9185 09:31-0400Body zgyjik014.2 cmMason Johnson MD Work Phone: [facility] CenterIxmrccludb27-23-0972 09:31-0400Body mass index (BMI) [Ratio]31.48 kg/p7WdjqguMason Johnson MD Work Phone: [facility] CenterCkkltieksz64-23-1249 09:31-0400Body glaycn16.17 kgMason Johnson MD Work Phone: [facility] CenterPqpnkazgmd93-30-6690 09:31-0400Diastolic blood mvavtzoq80 mm[Hg]Mason Johnson MD Work Phone: [facility] CenterQsnzlxkxwc70-40-4391 09:31-0400Heart rate58 /min Mason Johnson MD Work Phone: [facility] CenterYradtqsyuq84-08-6618 09:31-5217WsZ6% (BldA) [Mass fraction]95 %Mason Johnson MD Work Phone: [facility] CenterAdetwmofjt30-87-0585 09:31-0400Systolic blood qidfzwja294 mm[Hg]Mason Johnson MD Work Phone: [facility] CenterXebcermjux05-55-3688 10:33-0400Body jfwpva958.2 cmMason Johnson MD Work Phone: [facility] CenterAkzktxtkys28-93-9949 10:33-0400Body mass index (BMI) [Ratio]31.32 kg/k9CrbiddMason Johnson MD Work Phone: [facility] CenterIolhdzfavs96-76-2730 10:33-0400Body dkdbuc69.72 kgMason Johnson MD Work Phone: [facility] CenterYrmdqwksfa52-12-5006 10:33-0400Diastolic blood iskezedl16 mm[Hg]Mason Johnson MD Work Phone: [facility] CenterYahlzgueeo34-50-1245 10:33-0400Heart rate56 /min Mason Johnson MD Work Phone: NOFre[facility] SystemOohkfsbbrk24-53-5161 10:33-1333ZvF4% (BldA) [Mass fraction]95 %Mason Johnson MD Work Phone: [facility] CenterFnufobqtpo78-92-4442 10:33-0400Systolic blood cymledvb308 mm[Hg]Mason Johnson MD Work Phone: [facility] CenterEztxgigazb05-36-7586 10:50-0400Body whyobt167.9 cmVwagner England MD Work Phone: [facility]04-30-2025 10:50-0400Body mass index (BMI) [Ratio]32.92 kg/d1MivooJohn England MD Work Phone: [facility]04-30-2025 10:50-0400Body temperature 97.9 [degF]John England MD Work Phone: [facility]04-30-2025 10:50-0400Body hbcnyk45.7 kgJohn England MD Work Phone: [facility]04-30-2025 10:50-0400Diastolic blood fgxkuqex02 mm[Hg]John England MD Work Phone: [facility]04-30-2025 10:50-0400Heart rate55 /min John England MD Work Phone: [facility]04-30-2025 10:50-0400Respiratory rate 16 /minJohn England MD Work Phone: [facility]04-30-2025 10:50-0744JiV5% (BldA) [Mass fraction]97 %John England MD Work Phone: [facility]04-30-2025 10:50-0400Systolic blood ysxdlgtg287 mm[Hg]John England MD Work Phone: [facility]04-21-2025 10:52-0400Body ovcndz661.2 cmDalaron Johnson MD Work Phone: noFreeman [facility] SystemMltuhopnte76-23-2257 10:52-0400Body mass index (BMI) [Ratio]30.85 kg/l0BirrcwMason Johnson MD Work Phone: [facility] CenterBjiodwixek70-92-5651 10:52-0400Body hazmnd62.36 kgMason Johnson MD Work Phone: [facility] CenterOgagifebgw67-30-7624 10:52-0400Diastolic blood mm[Hg]Mason Johnson MD Work Phone: [facility] CenterJgklbejhxm13-59-4511 10:52-0400Heart rate52 /min Mason Johnson MD Work Phone: [facility] CenterAswgtfquhj38-91-3677 10:52-1233UrT9% (BldA) [Mass fraction]96 %Mason Johnson MD Work Phone: [facility] CenterPdxufjjjku47-14-4214 10:52-0400Systolic blood wigmfpfo545 mm[Hg]Mason Johnson MD Work Phone: [facility] CenterKaqvzhhcjp98-66-8432 08:01-0400Body .2 cmSerene Morales MD Work Phone: [facility] CenterKctttqllhl52-87-6032 08:01-0400Body mass index (BMI) [Ratio]30.85 kg/g3KdkuynSerene Morales MD Work Phone: [facility] CenterYojikowpij20-76-5745 08:01-0400Body drmibw05.36 kgSerene Morales MD Work Phone: [facility] CenterWpoaoldjcc99-56-7418 08:01-0400Diastolic blood wkgwquqg46 mm[Hg]Serene Morales MD Work Phone: [address] [address]Qcqqftzwqg40-54-3927 08:01-0400Heart rate54 /min Serene Morales MD Work Phone: [facility] CenterLljyoklevb07-47-8277 08:01-0400Systolic blood mm[Hg]Serene Morales MD Work Phone: [facility] CenterYfgcigjdzw37-86-2085 15:41-0400Body cvntil203.2 cmMason Johnson MD Work Phone: NOFre[facility] SystemXfpeifacjz63-67-5342 15:41-0400Body mass index (BMI) [Ratio]30.85 kg/t0OweikuaMson Johnson MD Work Phone: NOFre[facility] SystemNisymdivur32-11-2960 15:41-0400Body wwuqis03.36 Yris Johnson MD Work Phone: NOFre[facility] SystemJjpztrflgr52-38-1060 15:41-0400Diastolic blood pvkdrzco48 mm[Hg]Mason Johnson MD Work Phone: NOFre[facility] SystemJzmeeuysre31-39-3766 15:41-0400Heart rate56 /min Mason Johnson MD Work Phone: [facility] CenterWdvrsuzwvl00-60-4224 15:41-2332WzQ9% (BldA) [Mass fraction]98 %Mason Johnson MD Work Phone: NOFre[facility] SystemAitslfqxgp01-92-2778 15:41-0400Systolic blood hnccdfbi000 mm[Hg]Mason Johnson MD Work Phone: NOFre[facility] SystemPulyqlguyy26-95-1385 09:26-0500Body xpibad075.2 Radha Johnson MD Work Phone: [facility] CenterQpzumggtvz35-46-6166 09:26-0500Body mass index (BMI) [Ratio]30.54 kg/j0CjjwwhMason Johnson MD Work Phone: NOFre[facility] SystemYyoydwycix39-32-3179 09:26-0500Body ljaqcy95.45 Yris Johnson MD Work Phone: NOFre[facility] SystemWcldlegrax50-29-6865 09:26-0500Diastolic blood udhnngwg87 mm[Hg]Mason Johnson MD Work Phone: NOFre[facility] SystemTtoseamcne52-99-9200 09:26-0500Heart rate74 /min Mason Johnson MD Work Phone: NO[facility] SystemCtcdoinfbk88-37-7949 09:26-3247JwG8% (BldA) [Mass fraction]98 %Mason Johnson MD Work Phone: NOFre[facility] SystemPqgmxhhjqw26-28-9147 09:26-0500Systolic blood mm[Hg]Mason Johnson MD Work Phone: [facility] CenterObfvnqtgap62-16-9124 14:14-0500Body kocgwx023.2 cmSerene Morales MD Work Phone: [facility] CenterOhcsqcbqik57-18-9523 14:14-0500Body mass index (BMI) [Ratio]29.91 kg/r6DsbsvcSerene Morales MD Work Phone: 1(586)[facility] [place], [place] [address]Bveejifrso52-90-5555 14:14-0500Body jliqbq40.64 kgSerene Morales MD Work Phone: 1(448)[address] [place], [place] [address]01-14-2025 14:14-0500Diastolic blood fuoloyen70 mm[Hg]Serene Morales MD Work Phone: 1(964)[facility]-95[address] CenterYcicqinrwp57-22-2063 14:14-0500Heart rate57 /min Serene Morales MD Work Phone: [phone])[facility] [place], [place] [address]Tlieszjqdc28-68-9747 14:14-0500Systolic blood odhnylxe536 mm[Hg]Serene Morales MD Work Phone: 1(671)[address] [place], [place] [address]12-10-2024 09:02-0500Body merzxw022.2 Donato Morales MD Work Phone: 1(318)[facility]-[address] [place], [place] [address]Hritmxwdyz92-70-1117 09:02-0500Body mass index (BMI) [Ratio]29.91 kg/z7UjptrzSerene Morales MD Work Phone: 1([phone])[facility] [place], [place] [address]Fuwroxjjdp32-06-3487 09:02-0500Body .64 kgSerene Morales MD Work Phone: 1(808)[address] [place], [place] 7127612-10-2024 09:02-0500Diastolic blood pjcqnuen70 mm[Hg]Serene Morales MD Work Phone: 1(475)[address] [place], [place] [address]12-10-2024 09:02-0500Systolic blood mkckmybc505 mm[Hg]Serene Morales MD Work Phone: 1(990)[address] [place] [address]-12-2024 08:57-0500Body cvympf827.2 cmSerene Morales MD Work Phone: [facility] CenterUsluqbycwd74-82-5104 08:57-0500Body mass index (BMI) [Ratio]29.91 kg/i0VrzehwSerene Morales MD Work Phone: [facility] CenterZgzuuqjrmc43-26-1903 08:57-0500Body imdhoh95.64 kgSerene Morales MD Work Phone: [facility] CenterEqmxgzjoij98-91-4098 08:57-0500Diastolic blood nfanmujq79 mm[Hg]Serene Morales MD Work Phone: [facility] CenterEoafdzmzav61-43-6558 08:57-0500Systolic blood mm[Hg]Serene Morales MD Work Phone: [facility] CenterJrvfmeqkqq55-43-8699 15:06-0400Body .9 cmVwagner England MD Work Phone: [facility]10-30-2024 15:06-0400Body mass index (BMI) [Ratio]31.12 kg/h3XmhkkJohn England MD Work Phone: [facility]10-30-2024 15:06-0400Body temperature 97.81 [degF]John England MD Work Phone: [facility]10-30-2024 15:06-0400Body auzzbl36.7 kgJohn England MD Work Phone: [facility]10-30-2024 15:06-0400Diastolic blood icmhckny93 mm[Hg]John England MD Work Phone: [facility]10-30-2024 15:06-0400Heart rate60 /min John England MD Work Phone: [facility]10-30-2024 15:06-0400Respiratory rate 18 /minJohn England MD Work Phone: [address] [place], [place] [address]10-30-2024 15:06-7027LiD2% (BldA) [Mass fraction]98 %John England MD Work Phone: [facility]10-30-2024 15:06-0400Systolic blood tqkttogr291 mm[Hg]John England MD Work Phone: [facility]10-30-2024 14:36-0400Body mass index (BMI) [Ratio]31.12 kg/m2BARRON Feliz MD Work Phone: [facility]10-30-2024 14:36-0400Body temperature 97.81 [degF]BARRON Feliz MD Work Phone: [facility]10-30-2024 14:36-0400Body htiapv20.7 kgBARRON Feliz MD Work Phone: [facility]10-30-2024 14:36-0400Diastolic blood flzzfbai39 mm[Hg]BARRON Feliz MD Work Phone: [facility]10-30-2024 14:36-0400Heart rate60 /min BARRON Feliz MD Work Phone: [facility]10-30-2024 14:36-0400Respiratory rate 18 /FaustoBARRON Feliz MD Work Phone: [facility]10-30-2024 14:36-6821QdR2% (BldA) [Mass fraction]98 %BARRON Feliz MD Work Phone: [facility]10-30-2024 14:36-0400Systolic blood otvgnnnh316 mm[Hg]BARRON Feliz MD Work Phone: [facility]10-24-2024 08:51-0400Body .2 cmMason Johnson MD Work Phone: [facility] CenterHvezbyzqzn06-68-6106 08:51-0400Body mass index (BMI) [Ratio]30.23 kg/i3PlqtjpMason Johnson MD Work Phone: 1([phone] [place], [place] [address]Hkhqunbrkg77-54-2751 08:51-0400Body rclezf76.54 kgDalaron Johnson MD Work Phone: 1(747)[facility] [place], [place] [address]Tecmogapes81-22-7823 08:51-0400Diastolic blood mm[Hg]Mason Johnson MD Work Phone: 1(447)[facility]-[address] [place], [place] [address]Bgpdeiuqsy56-20-0756 08:51-0400Heart rate63 /min Mason Johnson MD Work Phone: 1(272)[address] [place] [address]-24-2024 08:51-7110IeR9% (BldA) [Mass fraction]100 %Mason Johnson MD Work Phone: 1(683)[facility] [place], [place] [address]Tcuuigetsd48-09-0955 08:51-0400Systolic blood eiziotrc737 mm[Hg]Mason Johnson MD Work Phone: 1(249)[facility] [place], [place] [address]Vdxrluixjf41-07-1783 09:17-0400Body bubtdc629.2 cmSerene Morales MD Work Phone: [phone])[address] [place], [place] [address]25[facility] CenterNuzoffqstm30-51-9166 09:17-0400Body mass index (BMI) [Ratio]30.38 kg/t2LhpljiSerene Morales MD Work Phone: 1(465)[address] [place], [place] [address] CenterHplihvymey86-71-5800 09:17-0400Body kg Serene Morales MD Work Phone: 1(511)[facility] CenterNorth [facility] CenterMjlgpsbhgi07-61-1879 09:17-0400Diastolic blood bbgfpyhq56 mm[Hg]Serene Morales MD Work Phone: 1(369)[facility] [place] [address]-15-2024 09:17-0400Systolic blood djoejfie291 mm[Hg]Serene Morales MD Work Phone: 1(522)[address] [place], [place] [address]10-01-2024 12:09-0400Body lfugph523.18 [facility]10-01[facility] 12:09-0400Body mass index (BMI) [Ratio]30.1 kg/a2VmsbkcewyK[facility]10-01-2024 12:09-0400Body qjkzfffrnyu13.3 [degF][facility]10-01-2024 12:09-0400Body shevbn27.2 kgK[facility]10-01-2024 12:09-0400Diastolic blood rwnegbma74 mm[Hg][facility]10-01-2024 12:09-0400 Heart rate63 /[facility]10-01-2024 12:09-0400 Respiratory rate18 /[facility]10-01-2024 12:09-0400 SaO2% (BldA) [Mass fraction]97 %[facility] [facility] 12:09-0400Systolic blood facvnkuk815 mm[Hg][facility] 03-24-2024 08:59-0400Body atqkqd139.2 cmSerene Morales MD Work Phone: 1(977)[address] [place], [place] 7127609-17-2024 08:59-0400Body mass index (BMI) [Ratio]29.6 kg/h1FpopexSerene Morales MD Work Phone: 1(605)[address] [place], [place] 7127609-17-2024 08:59-0400Body mizvjl83.73 kgSerene Morales MD Work Phone: 1(674)[address] [place], [place] 7127609-17-2024 08:59-0400Diastolic blood yjjwcpwc56 mm[Hg]Serene Morales MD Work Phone: 1(198)[address] [place], [place] 7127609-17-2024 08:59-0400Systolic blood ohstrfsu629 mm[Hg]Serene Morales MD Work Phone: 1([phone]08-20-2024 09:06-0400Body .2 Donato Morales MD Work Phone: 1(616)[address] [place] [address]-20-2024 09:06-0400Body mass index (BMI) [Ratio]29.91 kg/s4CdvnxqSerene Morales MD Work Phone: 1(730)[address] [place], [place] 7127608-20-2024 09:06-0400Body xtahzd59.64 kgSerene Morales MD Work Phone: 1(175)[address] [place], [place] 7127608-20-2024 09:06-0400Diastolic blood riyxsikz38 mm[Hg]Serene Morales MD Work Phone: [facility]ov[facility]gd[facility]17[facility]5170 09:06-0400Systolic blood ebguwfls675 mm[Hg]Serene Morales MD Work Phone: [facility] CenterHxvetfxruy33-25-3299 13:29-0400Body eevcwm623.64 cm[facility]07[facility]24 13:29-0400Body mass index (BMI) [Ratio]30.5 kg/w9ZrxioznemK[facility]07-09-2024 13:29-0400Body rxvvfvydylp27.4 [degF][facility]07-09-2024 13:29-0400Body miwpiv49.89 kgK[facility]07-09-2024 13:29-0400Diastolic blood zykdgrjy72 mm[Hg][facility]07-09-2024 13:29-0400 Heart rate66 /[facility]07-09-2024 13:29-0400 Respiratory rate18 /[facility]07-09-2024 13:29-0400 SaO2% (BldA) [Mass fraction]92 %[facility]07-09-2024 13:29-0400Systolic blood ilciqejl378 mm[Hg][facility] 11-06-2023 09:51-0400Body mass index (BMI) [Ratio]31.73 kg/m2BARRON Feliz MD Work Phone: [facility]05-01-2024 09:51-0400Body temperature 97.11 [degF]BARRON Feliz MD Work Phone: [facility]05-01-2024 09:51-0400Body fzurqq83.4 kgBARRON Feliz MD Work Phone: [facility]05-01-2024 09:51-0400Diastolic blood bqfdlmud44 mm[Hg]BARRON Feliz MD Work Phone: [facility]05-01-2024 09:51-0400Heart rate58 /min BARRON Feliz MD Work Phone: [facility]05-01-2024 09:51-0400Respiratory rate 16 /FaustoBARRON Feliz MD Work Phone: [facility]05-01-2024 09:51-1033QoC8% (BldA) [Mass fraction]99 %BARRON Feliz MD Work Phone: [facility]05-01-2024 09:51-0400Systolic blood iyypryam835 mm[Hg]BARRON Feliz MD Work Phone: [facility]04-17-2024 10:56-0400Body hdqvna828.9 cmVwagner England MD Work Phone: [facility]04-17-2024 10:56-0400Body temperature 97.81 [degF]John England MD Work Phone: [facility]04-17-2024 10:56-0400Body ipvysh93.5 kgJohn England MD Work Phone: [facility]04-17-2024 10:56-0400Diastolic blood emyezwyv32 mm[Hg]John England MD Work Phone: [facility]04-17-2024 10:56-0400Heart rate54 /min John England MD Work Phone: [facility]04-17-2024 10:56-0400Respiratory rate 16 /minJohn England MD Work Phone: [facility]04-17-2024 10:56-9084ZlB7% (BldA) [Mass fraction]98 %John England MD Work Phone: [facility]04-17-2024 10:56-0400Systolic blood gbqupkoh513 mm[Hg]John England MD Work Phone: [facility]2023 11:14-0400Body temperature 97.11 [degF]BARRON Feliz MD Work Phone: [facility]2023 11:14-0400Body lidplj83.2 kgBARRON Feliz MD Work Phone: [facility]2023 11:14-0400Diastolic blood febuzlli464 mm[Hg]BARRON Feliz MD Work Phone: [facility]2023 11:14-0400Heart rate58 /min BARRON Feliz MD Work Phone: [facility]2023 11:14-0400Respiratory rate 16 /FaustoBARRON Feliz MD Work Phone: [facility]2023 11:14-8366VlA8% (BldA) [Mass fraction]98 %BARRON Feliz MD Work Phone: [facility]2023 11:14-0400Systolic blood mm[Hg]BARRON Feliz MD Work Phone: [facility]09-13-2023 12:55-0400Body movnji025.9 Hunter England MD Work Phone: [facility]09-13-2023 12:55-0400Body temperature 97.9 [degF]John England MD Work Phone: [facility]09-13-2023 12:55-0400Body .92 kgJohn England MD Work Phone: [place] [address]-13-2023 12:55-0400Diastolic blood ibiqoire95 mm[Hg]John England MD Work Phone: [place] [address]-13-2023 12:55-0400Heart rate59 /min John England MD Work Phone: [place] [address]-13-2023 12:55-0400Respiratory rate 16 /minJohn England MD Work Phone: [place] [address]-13-2023 12:55-9448OhM4% (BldA) [Mass fraction]98 %John England MD Work Phone: [facility]09-13-2023 12:55-0400Systolic blood veziojhc696 mm[Hg]John England MD Work Phone: [facility]08-02-2023 11:59-0400Body temperature 97.3 [degF]BARRON Feliz MD Work Phone: [facility]08-02-2023 11:59-0400Body .74 kgNA Agustín WELCH Work Phone: [facility]08-02-2023 11:59-0400Diastolic blood admffuka91 mm[Hg]BARRON Feliz MD Work Phone: [facility]08-02-2023 11:59-0400Heart rate56 /min BARRON Feliz MD Work Phone: [facility]08-02-2023 11:59-0400Respiratory rate 16 /FaustoBARRON Feliz MD Work Phone: [facility]08-02-2023 11:59-0400Systolic blood mm[Hg]BARRON Feliz MD Work Phone: [facility]08-02-2023 11:29-0400Body .9 cmVwagner England MD Work Phone: [facility]08-02-2023 11:29-0400Body temperature 97.3 [degF]John England MD Work Phone: [facility]08-02-2023 11:29-0400Body bcjwny36.92 kgJohn England MD Work Phone: [facility]08-02-2023 11:29-0400Diastolic blood zwuhbllz87 mm[Hg]John England MD Work Phone: [facility]08-02-2023 11:29-0400Heart rate56 /min John England MD Work Phone: [facility]08-02-2023 11:29-0400Respiratory rate 16 /minJohn England MD Work Phone: [facility]08-02-2023 11:29-3494QoW3% (BldA) [Mass fraction]98 %John England MD Work Phone: [facility]08-02-2023 11:29-0400Systolic blood bbcowzhf416 mm[Hg]John England MD Work Phone: [facility]05-24-2023 14:37-0400Body temperature 96.69 [degF]BARRON Feliz MD Work Phone: [facility]05-24-2023 14:37-0400Body rzjbco00.47 kgBARRON Feliz MD Work Phone: [facility]05-24-2023 14:37-0400Diastolic blood wjfixpeo42 mm[Hg]BARRON Feliz MD Work Phone: [facility]05-24-2023 14:37-0400Heart rate66 /min BARRON Feliz MD Work Phone: [facility]05-24-2023 14:37-0400Respiratory rate 18 /FaustoBARRON Feliz MD Work Phone: [facility]05-24-2023 14:37-4630ZiV2% (BldA) [Mass fraction]97 %BARRON Feliz MD Work Phone: [facility]05-24-2023 14:37-0400Systolic blood wqbkebmb233 mm[Hg]BARRON Feliz MD Work Phone: [facility]05-03-2023 09:21-0400Body lyezis182.9 cmVwagner England MD Work Phone: [facility]05-03-2023 09:21-0400Body temperature 97.5 [degF]John England MD Work Phone: [facility]05-03-2023 09:21-0400Body tdjpta52.11 kgJohn England MD Work Phone: [facility]05-03-2023 09:21-0400Diastolic blood zhpileuh39 mm[Hg]John England MD Work Phone: [facility]05-03-2023 09:21-0400Heart rate58 /min John England MD Work Phone: [facility]05-03-2023 09:21-0400Respiratory rate 16 /minJohn England MD Work Phone: [facility]05-03-2023 09:21-1431HxO2% (BldA) [Mass fraction]100 %John England MD Work Phone: [facility]05-03-2023 09:21-0400Systolic blood oufewclj055 mm[Hg]John England MD Work Phone: [facility]04-26-2023 14:05-0400Body uchcux747.9 cmNatalie Cadena APRN.[employer] Work Phone: [facility]04-26-2023 14:05-0400Body temperature 97.5 [degF]Natalie Cadena APRN.[employer] Work Phone: [facility]04-26-2023 14:05-0400Body xivrew38.2 kgNatalie Cadena APRN.[employer] Work Phone: [facility]04-26-2023 14:05-0400Diastolic blood avxzfbov87 mm[Hg]Natalie Cadena APRN.[employer] Work Phone: [facility]04-26-2023 14:05-0400Heart rate67 /min Natalie Cadena APRN.[employer] Work Phone: [address] [place], [place] 3275404-26-2023 14:05-0400Respiratory rate 16 /minNatalie Cadena APRN.[employer] Work Phone: [place] [address]-26-2023 14:05-4480OfH8% (BldA) [Mass fraction]98 %Natalie Cadena APRN.[employer] Work Phone: [place] [address]-26-2023 14:05-0400Systolic blood luchcaoq961 mm[Hg]Natalie Cadena APRN.[employer] Work Phone: 1([phone] [address]-20-2023 09:51-0400Body ibhgyp094.9 cmNatalie Cadena APRN.[employer] Work Phone: 1(363)4-[address] [place] [address]-20-2023 09:51-0400Body temperature 97 [degF]Natalie Cadena APRN.[employer] Work Phone: 1(925)7-[address] [place] [address]-20-2023 09:51-0400Body gqierz90.29 kgNatalie Cadena APRN.[employer] Work Phone: 1([phone] [address]-20-2023 09:51-0400Diastolic blood zijgcbng05 mm[Hg]Natalie Cadena APRN.[employer] Work Phone: 1(552)084-[address] [place] [address]-20-2023 09:51-0400Heart rate63 /min Natalie Cadena APRN.[employer] Work Phone: 1(337)9-[address] [place] [address]-20-2023 09:51-0400Respiratory rate 16 /minNatalie Cadena APRN.[employer] Work Phone: [place] [address]-20-2023 09:51-1702IcC1% (BldA) [Mass fraction]99 %Natalie Cadena APRN.[employer] Work Phone: [place] [address]-20-2023 09:51-0400Systolic blood mkggfnro694 mm[Hg]Natalie Cadena APRN.[employer] Work Phone: 1([phone] [address]-14-2023 09:21-0400Body wtcdse928.9 Hunter England MD Work Phone: [facility]04-14-2023 09:21-0400Body temperature 97.11 [degF]John England MD Work Phone: [place] [address]-14-2023 09:21-0400Body fvqaed52.74 kgJohn England MD Work Phone: [facility]04-14-2023 09:21-0400Diastolic blood hcxcvelx12 mm[Hg]John England MD Work Phone: 1(524) 678-[address]14-2023 09:21-0400Heart rate56 /min John England MD Work Phone: [place] [address]-14-2023 09:21-0400Respiratory rate 16 /minJohn England MD Work Phone: [place] [address]-14-2023 09:21-1599ScC5% (BldA) [Mass fraction]98 %John England MD Work Phone: [place] [address]-14-2023 09:21-0400Systolic blood gbmntlos409 mm[Hg]John England MD Work Phone: [facility]04-10-2023 10:40-0400Body temperature 97.39 [degF]BARRON Feliz MD Work Phone: [facility]04-10-2023 10:40-0400Body lzlidd32.02 kgBARRON Feliz MD Work Phone: [place] [address]-10-2023 10:40-0400Diastolic blood gpaaphdw57 mm[Hg]BARRON Feliz MD Work Phone: [place] [address]-10-2023 10:40-0400Heart rate83 /min BARRON Feliz MD Work Phone: [place] [address]-10-2023 10:40-0400Respiratory rate 16 /FaustoBARRON Feliz MD Work Phone: 1(312) 876-[address]10-2023 10:40-5678UnG2% (BldA) [Mass fraction]100 %BARRON Feliz MD Work Phone: [place] [address]-10-2023 10:40-0400Systolic blood olynjvch371 mm[Hg]BARRON Feliz MD Work Phone: [facility]04-03-2023 11:07-0400Body temperature 98.2 [degF]Chair Jose Work Phone: [facility]04-03-2023 11:07-0400Diastolic blood ikuxoral19 mm[Hg]Chair Jose Work Phone: [place] [address]-03-2023 11:07-0400Heart rate70 /min Chair Jose Work Phone: [place] [address]-03-2023 11:07-0400Respiratory rate 18 /minChair Jose Work Phone: [facility]04-03-2023 11:07-2272YeB5% (BldA) [Mass fraction]99 %Chair Jose Work Phone: [place] [address]-03-2023 11:07-0400Systolic blood obzaihzl292 mm[Hg]Chair Jose Work Phone: [facility]04-03-2023 10:48-0400Body temperature 97.2 [degF]BARRON Feliz MD Work Phone: [place] [address]-03-2023 10:48-0400Body fvivxo20.65 kgBARRON Feliz MD Work Phone: [place] [address]-03-2023 10:48-0400Diastolic blood qrpdwjja08 mm[Hg]BARRON Feliz MD Work Phone: [place] [address]-03-2023 10:48-0400Heart rate67 /min BARRON Feliz MD Work Phone: [place] [address]-03-2023 10:48-0400Respiratory rate 16 /FaustoBARRON Feliz MD Work Phone: [facility]04-03-2023 10:48-3041EaX5% (BldA) [Mass fraction]99 %BARRON Feliz MD Work Phone: [facility]04-03-2023 10:48-0400Systolic blood lxtsnbyk597 mm[Hg]BARRON Feliz MD Work Phone: [facility]03-27-2023 11:40-0400Body hqofdx152.9 cmNatalie Cadena ORE [employer]ER.[employer] Work Phone: [facility]03-27-2023 11:40-0400Body temperature 96.91 [degF]Natalie Cadena ORE [employer]ER.[employer] Work Phone: [facility]03-27-2023 11:40-0400Body mfqmce66.29 kgNatalie Cadena ORE MINER.[employer] Work Phone: [facility]03-27-2023 11:40-0400Diastolic blood ogxrsjay72 mm[Hg]Natalie Cadena ORE [employer]ER.[employer] Work Phone: [facility]03-27-2023 11:40-0400Heart rate74 /min Natalie Cadena APRN.[employer] Work Phone: [facility]03-27-2023 11:40-0400Respiratory rate 16 /minNatalie Cadena ORE MINER.[employer] Work Phone: [facility]03-27-2023 11:40-4063KyL4% (BldA) [Mass fraction]99 %Natalie Cadena ORE MINER.[employer] Work Phone: [facility]03-27-2023 11:40-0400Systolic blood qylisbdl377 mm[Hg]Natalie Cadena ORE MINER.[employer] Work Phone: [facility]03-27-2023 10:47-0400Body temperature 96.91 [degF]BARRON Feliz MD Work Phone: [facility]03-27-2023 10:47-0400Body lajplh61.65 kgBARRON Feliz MD Work Phone: [facility]03-27-2023 10:47-0400Diastolic blood qvqggrya99 mm[Hg]BARRON Feliz MD Work Phone: [facility]03-27-2023 10:47-0400Heart rate74 /min BARRON Feliz MD Work Phone: [place] [address]-27-2023 10:47-0400Respiratory rate 16 /FaustoBARRON Feliz MD Work Phone: [place] [address]-27-2023 10:47-2596VyT6% (BldA) [Mass fraction]99 %BARRON Feliz MD Work Phone: [place] [address]-27-2023 10:47-0400Systolic blood qxetfgiw770 mm[Hg]BARRON Feliz MD Work Phone: [place] [address]-20-2023 10:40-0400Body temperature 97.59 [degF]BARRON Feliz MD Work Phone: [facility]03-20-2023 10:40-0400Body ytoxvn35.46 kgBARRON Feliz MD Work Phone: [place] [address]-20-2023 10:40-0400Diastolic blood kjqkgwoi22 mm[Hg]BARRON Feliz MD Work Phone: [place] [address]-20-2023 10:40-0400Heart rate83 /min BARRON Feliz MD Work Phone: [place] [address]-20-2023 10:40-0400Respiratory rate 18 /FaustoBARRON Feliz MD Work Phone: [place] [address]-20-2023 10:40-0063BnE3% (BldA) [Mass fraction]98 %BARRON Feliz MD Work Phone: [facility]03-20-2023 10:40-0400Systolic blood qcuwzvtf202 mm[Hg]BARRON Feliz MD Work Phone: [place] [address]-13-2023 11:03-0400Body temperature 97.7 [degF]BARRON Feliz MD Work Phone: [place] [address]-13-2023 11:03-0400Body .82 kgBARRON Feliz MD Work Phone: [facility]03-13-2023 11:03-0400Diastolic blood bfmadyyr48 mm[Hg]BARRON Feliz MD Work Phone: [place] [address]-13-2023 11:03-0400Heart rate75 /min BARRON Feliz MD Work Phone: [place] [address]-13-2023 11:03-0400Respiratory rate 18 /FaustoBARRON Feliz MD Work Phone: [place] [address]-13-2023 11:03-3310ZaI1% (BldA) [Mass fraction]95 %BARRON Feliz MD Work Phone: [place] [address]-13-2023 11:03-0400Systolic blood sbojgckl079 mm[Hg]BARRON Feliz MD Work Phone: [facility]03-06-2023 11:17-0500Body temperature 97.81 [degF]BARRON Feliz MD Work Phone: [facility]03-06-2023 11:17-0500Body .73 kgBARRON Feliz MD Work Phone: [place] [address]-06-2023 11:17-0500Diastolic blood clwrrrvy92 mm[Hg]BARRON Feliz MD Work Phone: [place] [address]-06-2023 11:17-0500Heart rate72 /min BARRON Feliz MD Work Phone: [facility]03-06-2023 11:17-0500Respiratory rate 18 /FaustoBARRON Feliz MD Work Phone: [place] [address]-06-2023 11:17-8361SpX4% (BldA) [Mass fraction]97 %BARRON Feliz MD Work Phone: [facility]03-06-2023 11:17-0500Systolic blood nzgxcuyd750 mm[Hg]BARRON Feliz MD Work Phone: [facility]02-27-2023 11:09-0500Body jwolbe134.9 cmVwagner England MD Work Phone: [facility]02-27-2023 11:09-0500Body temperature 97 [degF]John England MD Work Phone: [place] [address]-27-2023 11:09-0500Body lwmdua76.46 kgJohn England MD Work Phone: [facility]02-27-2023 11:09-0500Diastolic blood efvasxnf17 mm[Hg]John England MD Work Phone: [place] [address]-27-2023 11:09-0500Heart rate70 /min John England MD Work Phone: [place] [address]-27-2023 11:09-0500Respiratory rate 16 /minJohn England MD Work Phone: [facility]02-27-2023 11:09-9774BaY3% (BldA) [Mass fraction]97 %John England MD Work Phone: [facility]02-27-2023 11:09-0500Systolic blood muznuyho673 mm[Hg]John England MD Work Phone: [place] [address]-27-2023 09:57-0500Body temperature 97 [degF]BARRON Feliz MD Work Phone: [facility]02-27-2023 09:57-0500Body fryzyx64.19 kgBARRON Feliz MD Work Phone: [place] [address]-27-2023 09:57-0500Diastolic blood gtklfazo82 mm[Hg]BARRON Feliz MD Work Phone: [place] [address]-27-2023 09:57-0500Heart rate70 /min BARRON Feliz MD Work Phone: [facility]02-27-2023 09:57-0500Respiratory rate 16 /FaustoBARRON Feliz MD Work Phone: [facility]02-27-2023 09:57-6945UpV9% (BldA) [Mass fraction]97 %BARRON Feliz MD Work Phone: [place] [address]-27-2023 09:57-0500Systolic blood jkmexrct380 mm[Hg]BARRON Feliz MD Work Phone: [facility]02-09-2023 15:39-0500Body hxvbur703.9 cmVwagner England MD Work Phone: [facility]02-09-2023 15:39-0500Body temperature 97.7 [degF]John England MD Work Phone: [facility]02-09-2023 15:39-0500Body .73 kgJohn England MD Work Phone: [facility]02-09-2023 15:39-0500Diastolic blood iktronvp56 mm[Hg]John England MD Work Phone: [facility]02-09-2023 15:39-0500Heart rate64 /min John England MD Work Phone: [facility]02-09-2023 15:39-0500Respiratory rate 16 /minJohn England MD Work Phone: [facility]02-09-2023 15:39-0054ClU2% (BldA) [Mass fraction]97 %John England MD Work Phone: [place] [address]-09-2023 15:39-0500Systolic blood jyqcfezf474 mm[Hg]John England MD Work Phone: [facility]02-07-2023 10:01-0500Body .9 cmNA Agustín WELCH Work Phone: [facility]02-07-2023 10:01-0500Body temperature 97.7 [degF]BARRON Feliz MD Work Phone: [facility]02-07-2023 10:01-0500Body rrizso82.82 kgNA Agustín WELCH Work Phone: [facility]02-07-2023 10:01-0500Diastolic blood lglumsam35 mm[Hg]BARRON Feliz MD Work Phone: [facility]02-07-2023 10:01-0500Heart rate58 /min BARRON Feliz MD Work Phone: [facility]02-07-2023 10:01-0500Respiratory rate 16 /FaustoBARRON Feliz MD Work Phone: [facility]02-07-2023 10:01-5490KkT4% (BldA) [Mass fraction]99 %BARRON Feliz MD Work Phone: [facility]02-07-2023 10:01-0500Systolic blood erhdeohd366 mm[Hg]BARRON Feliz MD Work Phone: [facility]12-07-2022 14:55-0500Blood Pressure LocationMichael NILL [facility] Lzkstahz84-70-2840 14:55-0500Diastolic blood mm[Hg]Renea NILRick [facility] Znszrbpw70-04-3852 14:55-0500Heart rate 60 /minMichael NILL [facility] Hbfufoau08-32-1986 14:55-0500 Respiratory rate16 /minMichael NILL General Surgery Lhrzmmdq86-92-3667 14:55-0500Systolic blood mm[Hg][facility]enea PARTIDA [facility] [place] Encounters Encounter DateEncounter TypeCare ProviderFacilityStart: 05-13-2025 End: 64-95-1383Femhdnzcl encounterMason Johnson MD Work Phone: [facility] MedinceStart: 05-11-2025 End: 54-34-6607wzpftfrdnjNQXOThe Jewish Hospitaltart: 05-11-2025 End: 91-60-3315Cwbqgsoet for other preprocedural examinationTriHealth McCullough-[facility]de Memorial Hospitaltart: 05-06-2025 End: 81-52-9775eekuevejdzJ PHILLIP ENGELERFacility:[facility] Start: 05-06-2025 End: 36-86-2932nwgieqizutHBaptist Memorial Hospitalacility:[facility] Start: 04-30-2025 End: 56-45-3542Jdzqwh outpatient visit 25 minutesMason Johnson MD Work Phone: [facility] Young MedinceComment on above:Primary osteoarthritis of left hip (Primary Dx); 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, without long-term current use of insulin (HCC); 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; Abnormal EKG; History of heart artery stentStart: 04-30-2025 End: 41-93-5869cyhniksnyyKQHMYA B BERRYNot AvailableStart: 04-29-2025 End: 80-42-2246Bkssolspj Result EncounterGeneric External Data ProviderNOMS External Department UnsolicitedStart: 04-29-2025 End: 82-65-0018Mrqdogzbc Result EncounterGeneric External Data ProviderNOMS External Department UnsolicitedStart: 04-29-2025 End: 81-30-0304Libtzlbd Result EncounterJr. Mechelle Boyer DO Work Phone: [phone] External Department UnsolicitedStart: 04-29-2025 End: 48-91-2777gfallrjacfHmxyed Nealnaldo Jr-LAB Path Spec [place] HospStart: 04-29-2025 End: 51-07-1914Ivlnephj ReferredGeortiago Berhane Boyer Jr DO-LAB Path Spec [place] HospStart: 52-08-8616keozgjdqcoEMKTM ABHYANKARFacility:[facility] Start: 04-28-2025 End: 53-85-4560Opaixx flowsheetJr. Mechelle Boyer DO Work Phone: [facility]edicsStart: 04-28-2025 End: 18-67-8260Bkbzuj flowsheetJr. Mechelle Boyer DO Work Phone: [facility]opaedicsStart: 04-28-2025 End: 30-44-7056Jwcmva outpatient visit 40 minutesJr. Mechelle Boyer DO Work Phone: [facility] OrthopaedicsComment on above:Primary osteoarthritis of left hip (Primary Dx); Pre-op evaluationStart: 04-28-2025 End: 76-22-4638Qlsmbbboyator examination doneJr. Mechelle Boyer DO Work Phone: noms HealthcareStart: 04-28-2025 End: 14-43-3471wxpavidmpwHU., MECHELLE BOYERNot AvailableStart: 04-20-2025 End: 24-00-5914Lwrjjg flowsheetSerene Morales MD Work Phone: [facility] OtolaryngologyStart: 04-20-2025 End: 41-50-9177Ydzgsomaikel Morales MD Work Phone: [facility] OtolaryngologyStart: 04-20-2025 End: 21-86-0879Cmicyd outpatient visit 15 minutesSerene Morales MD Work Phone: n[facility] OtolaryngologyComment on above: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)Start: 04-20-2025 End: 39-32-3409yewwimvsvjSMMMIO Liliana Roman AvailableStart: 04-19-2025 End: 78-63-1141Sojwmvopd encounterJr. Mechelle Boyer DO Work Phone: [facility] OrthopaedicsComment on above:hip DOM Start: 04-14-2025 End: 53-37-0277Ireydw flowsheetJr. Mechelle Boyer DO Work Phone: [facility]edicsStart: 04-14-2025 End: 04-41-0568Hyyayq flowsheetJr. Mechelle Boyer DO Work Phone: [facility]edicsStart: 04-14-2025 End: 47-90-6668Vvbhjk outpatient visit 25 minutesJr. Mechelle Boyer DO Work Phone: [facility] OrthopaedicsComment on above:Left hip pain (Primary Dx); Pseudogout involving multiple joints; Primary osteoarthritis of left hipStart: 04-14-2025 End: 38-38-1517xddxkwftpbQS., MECHELLE Berhane Cabral AvailableStart: 03-26-2025 End: 60-68-1450Duitvk flowsNiecy Johnson MD Work Phone: [facility] MedinceStart: 03-26-2025 End: 24-63-2670Uwcnmq flowsNiecy Johnson MD Work Phone: [facility] MedinceStart: 03-26-2025 End: 45-22-1614Aywnky outpatient visit 25 minutesDalaron Johnson MD Work Phone: [facility] Family MedinceComment on above:Primary osteoarthritis of left hip (Primary Dx); Pseudogout involving multiple joints; Primary hypertension ; 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, without long-term current use of insulin (HCC); Moderate mixed hyperlipidemia not requiring statin therapyStart: 03-26-2025 End: 98-12-8682svqukaucorGKGUCM B BERRYNot AvailableStart: 03-12-2025 End: 51-14-2645Bcfgietdf Result EncounterMason Johnson MD Work Phone: [facility] External Department UnsolicitedStart: 03-12-2025 End: 25-02-0429Wjxcnueqe Result EncounterMason Johnson MD Work Phone: [facility] External Department UnsolicitedStart: 01-19-2025 End: 41-16-1642Nzrlbw Tahir Morales MD Work Phone: [facility] CI ENTStart: 01-19-2025 End: 45-48-7212Cwccdnmaikel Morales MD Work Phone: [facility] CI ENTStart: 01-19-2025 End: 43-68-5241lsegevzphtDPCNYI H TIMMISNot AvailableStart: 01-19-2025 End: 38-51-4161Pekmxo outpatient visit 15 minutesSerene Morales MD Work Phone: [facility] CI ENTComment on above: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)Start: 01-06-2025 End: 10-44-3684Lkrezc Leah Johnson MD Work Phone: [facility] CI FMStart: 01-06-2025 End: 41-55-6566Vjeego Leah Johnson MD Work Phone: [facility] CI FMStart: 01-06-2025 End: 85-25-2887Stldgf outpatient visit 15 minutesMason Johnson MD Work Phone: [facility] CI FMComment on above:Left lumbar radiculitis (Primary Dx); Left hip painStart: 01-06-2025 End: 29-53-1746lcizxtgblbZIXTKW B BERRYNot AvailableStart: 12-28-2024 End: 80-01-4420Mpbdsvjhv Result EncounterMason Johnson MD Work Phone: [facility] External Department UnsolicitedStart: 12-28-2024 End: 22-65-3193Gihwbcajc Result EncounterMason Johnson MD Work Phone: [facility] External Department UnsolicitedStart: 12-28-2024 End: 29-17-7980Erkvzm outpatient visit 25 minutesMason Johnson MD Work Phone: [facility] CI FMComment on above:Left hip pain (Primary Dx); Effusion of left knee; Acute pain of left kneeStart: 12-28-2024 End: 48-56-7096cptlymlbjtTPSFXP B BERRYNot AvailableStart: 12-09-2024 End: 68-53-2331Opgaje flowsheetMason Johnson MD Work Phone: [facility] CI FMStart: 12-09-2024 End: 07-64-1828Dkviio flowsheetMason Johnson MD Work Phone: [facility] CI FMStart: 12-09-2024 End: 89-78-9883Cdprcvvlk Result EncounterMason Johnson MD Work Phone: [facility] External Department UnsolicitedStart: 12-09-2024 End: 37-92-0543Xwxmro outpatient visit 25 minutesMason Johnson MD Work Phone: [facility] CI FMComment on above:Inflammatory arthritis (Primary Dx); Effusion of left knee; Acute pain of left knee; 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, without long-term current use of insulin ([facility])Start: 12-09-2024 End: 21-40-9902osselheopaJQVFRE B BERRYNot AvailableStart: 12-02-2024 End: 37-43-2924Jdkiegsbc Result EncounterGeneric External Data ProviderNOMS External Department UnsolicitedStart: 12-02-2024 End: 98-04-0951Ywjzesrtm Result EncounterGeneric External Data ProviderNOMS External Department UnsolicitedStart: 12-02-2024 End: 36-18-6945qnnczqsrciDQYSZS B BERRY IIFacility:[facility] Start: 11-04-2024 End: 66-90-8872Jivmkj outpatient visit 15 minutesG Jeyson Feliz MD Work Phone: Radiation OncologyComment on above:Acquired hypothyroidism (Primary Dx)Start: 11-04-2024 End: 12-13-3115Istdcv outpatient visit 25 minutesJohn England MD Work Phone: Hematology/OncologyComment on above: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); Lung nodules; Stage 3 chronic kidney disease, unspecified whether stage 3a or 3b CKD (HCC) Start: 11-04-2024 End: 19-56-7078plijopzdwyR PHILLIP ENGELERFacility:[facility] Start: 10-28-2024 End: 16-12-5524Xgogtiwhq Result EncounterGeneric External Data ProviderNOMS External Department UnsolicitedStart: 10-28-2024 End: 06-45-7458Hadqqehfi Result EncounterGeneric External Data ProviderNOMS External Department UnsolicitedStart: 85-25-1688imcmyeejhaPGHZQ ABHYANKAR [facility] 10-26[facility]24 End: 40-32-0299Vzxpnb flowsNiecy Johnson MD Work Phone: [facility] CI FMStart: 10-26-2024 End: 50-30-8835Ferjni flowsNiecy Johnson MD Work Phone: [facility] CI FMStart: 10-26-2024 End: 16-26-7766Bficwf outpatient visit 15 minutesMason Johnson MD Work Phone: [facility] CI FMComment on above:Primary osteoarthritis of left hip (Primary Dx); Neck pain on left side; Left hip pain; Spondylosis of cervical region without myelopathy or radiculopathy; Rheumatoid arthritis, unspecifiedStart: 10-26-2024 End: 61-52-6163wsvzrzqynfARAGFP B BERRYNot AvailableStart: 10-20-2024 End: 97-00-8923Cwidab flowsEvangelist Morales MD Work Phone: [facility] CI ENTStart: 10-20-2024 End: 62-94-6412Rgciwx flowsheetHisravani Morales MD Work Phone: [facility] CI ENTStart: 10-20-2024 End: 32-15-8848kafimcfklxYPTWAC H TIMMISNot AvailableStart: 10-20-2024 End: 56-35-4473Ofvdfv outpatient visit 15 minutesSerene Morales MD Work Phone: [facility] CI ENTComment on above:Cancer of base of tongue (CMS/HCC) (Primary Dx)Start: 10-13-2024 End: 84-29-0980Euszudsap Result EncounterMason Johnson MD Work Phone: [facility] External Department UnsolicitedStart: 10-13-2024 End: 78-21-6115Ixklzqtns Result EncounterMason Johnson MD Work Phone: [facility] External Department UnsolicitedStart: 10-12-2024 End: 89-06-4316Ivgeac outpatient visit 25 minutesDalaron Johnson MD Work Phone: [facility] CI FMComment on above:Neck pain on left side (Primary Dx); Left hip pain; Osteoarthritis, unspecified osteoarthritis type, unspecified site; Stress incontinence of urineStart: 10-12-2024 End: 69-71-2339usdmihlzbzQSQAPG B BERRYNot AvailableStart: 10-12-2024 End: 64-02-9720Ndykkz Leah Johnson MD Work Phone: [facility] CI FMStart: 10-12-2024 End: 44-86-6249Jcckrt Leah Johnson MD Work Phone: [facility] CI FMStart: 09-17-2024 End: 46-24-9317Tgcvjn flowsheetNatalie A Felter [employer] Work Phone: [facility] SWS DERMStart: 09-17-2024 End: 24-03-5760Lgqupc flowsheetNatalie A Felter [employer] Work Phone: [facility] SWS DERMStart: 09-17-2024 End: 13-92-9698gltfhlntffWEGGAYU A FELTERNot AvailableStart: 09-17-2024 End: 39-40-5804Xjfitp outpatient visit 10 minutesMilagromaite Pierreroma [employer] Work Phone: [facility] SWS DERMComment on above:Seborrheic keratosis (Primary Dx); Actinic keratosis; Seborrheic keratosis, inflamedStart: 08-31-2024 End: 26-54-2044Zfgcus flowsNiecy Johnson MD Work Phone: [facility] CI FMStart: 08-31-2024 End: 46-21-0153Gkifkk flowsNiecy Johnson MD Work Phone: [facility] CI FMStart: 08-31-2024 End: 85-99-2594Opodq of hemosiderin, quantMason Johnson MD Work Phone: [facility] HealthcareStart: 08-31-2024 End: 95-47-2310Gzhcfse encounter procedureMason Johnson MD Work Phone: [facility] [...] insulin (CMS/HCC); Torticollis; Actinic keratosisStart: 08-31-2024 End: 60-31-4830fvzxscpgatSJDTCQ B BERRYNot AvailableStart: 07-21-2024 End: 83-44-4569Cqsjht outpatient visit 15 minutesSerene Morales MD Work Phone: [facility] CI ENTComment on above:Cancer of base of tongue (CMS/HCC) (Primary Dx)Start: 07-21-2024 End: 84-15-2373nohiaypirjKKBIDV Liliana MORALESNot AvailableStart: 07-21-2024 End: 32-28-6950Yasvwl flowsEvangelist Morales MD Work Phone: [facility] CI ENTStart: 07-21-2024 End: 75-78-1393Njzzsc Tahir Morales MD Work Phone: NONM CI ENTStart: 07-15-2024 End: 80-38-7618Lvpmagsy SupportMannie Rodriguez ADULT NEUROLOGIST Work Phone: [facility] CI FMComment on above:Need for vaccinationStart: 06-16-2024 End: 58-33-1128Czcuoc Tahir Morales MD Work Phone: N[facility] CI ENTStart: 06-16-2024 End: 11-30-9615Ersxwh Tahir Morales MD Work Phone: [facility] CI ENTStart: 06-16-2024 End: 31-72-1346tlufxkwhleZPENOB Liliana JACOBSONSNot AvailableStart: 06-16-2024 End: 13-37-2878Wfyjwx outpatient visit 15 minutesHisravani Morales MD Work Phone: [facility] CI ENTComment on above:Cancer of base of tongue (CMS/HCC) (Primary Dx)Start: 05-26-2024 End: 15-82-8932Hjqdjj flowsheetNatalie A Felter [employer] Work Phone: [facility] SWS DERMStart: 05-26-2024 End: 31-53-5470Pyvybp flowsheetNatalie A Felter [employer] Work Phone: NODP SWS DERMStart: 05-26-2024 End: 27-04-1548yofhyvxwzyKHQECCL A FELTERNot AvailableStart: 05-26-2024 End: 64-18-6659Afkuon outpatient visit 10 minutesNatalie A Felter [employer] Work Phone: [facility] SWS DERMComment on above:Seborrheic keratosis (Primary Dx); Actinic keratosisStart: 05-19-2024 End: 53-91-8839Gyvivz Tahir Morales MD Work Phone: [facility] CI ENTStart: 05-19-2024 End: 78-84-0689Uxabxy Tahir Morales MD Work Phone: [facility] CI ENTStart: 05-19-2024 End: 07-57-6083Qbdnnj outpatient visit 15 minutesSerene Moarles MD Work Phone: NOEX CI ENTComment on above:Cancer of base of tongue (CMS/HCC) (Primary Dx)Start: 05-19-2024 End: 96-14-1473ssgonnwfuvZNSPSN H TIMMISNot AvailableStart: 05-18-2024 End: 48-37-4730LgsdjsQkafvxex Fitzpatrick ADULT NEUROLOGIST Work Phone: noms CWM FMComment on above:Primary hypertension (CMS/HCC)Start: 05-06-2024 End: 11-10-0780Klcyys outpatient visit 25 minutesJohn England MD Work Phone: Hematology/OncologyComment on above: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); Lung nodules; Stage 3 chronic kidney disease, unspecified whether stage 3a or 3b CKD (HCC) Start: 05-06-2024 End: 70-36-6484Xzznchl encounter procedureG Jeyson Feliz MD Work Phone: Radiation OncologyComment on above:Head and neck cancer (HCC) (Primary Dx)Start: 04-30-2024 End: 45-20-6677Tizrzy Leah Johnson MD Work Phone: [facility] CI FMStart: 04-30-2024 End: 98-48-9566Pucmjp Leah Johnson MD Work Phone: [facility] CI FMStart: 04-30-2024 End: 70-86-9838Rzhqeb outpatient visit 25 minutesMason Johnson MD Work Phone: noms CI FMComment on above:Primary hypertension (CMS/HCC) (Primary Dx); Controlled type 2 diabetes mellitus without complication, without long-term current use of insulin (CMS/HCC); 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 (CMS/HCC)Start: 04-23-2024 End: 29-08-1202Wrgrqvotd Result EncounterGeneric External Data ProviderNOMS External Department UnsolicitedStart: 04-23-2024 End: 57-36-3762Wfmnkvxsx Result EncounterGeneric External Data ProviderNOMS External Department UnsolicitedStart: 04-23-2024 End: 20-47-4026Cojxcuqbev hospital visit by physicianArrival Time Radiology Work Phone: Radiology Pet CTComment on above:Cancer of the base of tongue (HCC) [C01]Start: 04-21-2024 End: 77-00-4278Ojgdmr flowsEvangelist Morales MD Work Phone: n[facility] CI ENTStart: 04-21-2024 End: 76-98-9652Krbqaz flowsEvangelist Morales MD Work Phone: n[facility] CI ENTStart: 04-21-2024 End: 42-09-2377Glgszs outpatient visit 15 minutesSerene Morales MD Work Phone: noms CI ENTComment on above:Cancer of base of tongue (CMS/HCC) (Primary Dx)Start: 04-07-2024 End: 69-68-6656gaqobnnjhdHhbgdyejsSamaritan Hospital Work Phone: Start: 04-07-2024 End: 49-13-2277Foyqdwm [facility] Work Phone: Start: 03-24-2024 End: 09-37-1183Tyfeat Tahir Morales MD Work Phone: noms CI ENTStart: 03-24-2024 End: 02-11-1234Mizljd flowsEvangelist Morales MD Work Phone: noms CI ENTStart: 03-24-2024 End: 55-22-3747Oliekx outpatient visit 15 minutesHisravani Morales MD Work Phone: noms CI ENTComment on above:Cancer of base of tongue (CMS/HCC) (Primary Dx)Start: 03-04-2024 End: 91-88-6322Oikkgrami Result EncounterSeli Drake MD Work Phone: noms External Department UnsolicitedStart: 03-04-2024 End: 30-69-7381Ygmecmpvv Result EncounterSeli Drake MD Work Phone: noms External Department UnsolicitedStart: 02-25-2024 End: 15-26-6645Yagvwq Tahir Morales MD Work Phone: n[facility] CI ENTStart: 02-25-2024 End: 10-97-0142Divmgb Tahir Morales MD Work Phone: noms CI ENTStart: 02-25-2024 End: 71-83-7991Jchfws outpatient visit 15 minutesHisravani Morales MD Work Phone: noms CI ENTComment on above:Cancer of base of tongue (CMS/HCC) (Primary Dx)Start: 01-14-2024 End: 12-86-9265yksxxzxwzqYkcrbhatwMemorial Hospital Work Phone: Start: 01-14-2024 End: 28-22-2867Qrrhqys encounter procedureNov[facility] Work Phone: Start: 11-06-2023 End: 64-68-8919Eeeftkj encounter procedureG Jeyson Feliz MD Work Phone: Radiation OncologyComment on above:Head and neck cancer (HCC) (Primary Dx)Start: 10-23-2023 End: 73-69-6726Nldkaj outpatient visit 25 minutesJohn England MD Work Phone: Hematology/OncologyComment on above: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); Lung nodules; Stage 3 chronic kidney disease, unspecified whether stage 3a or 3b CKD (HCC) Start: 10-16-2023 End: 28-04-2381Sockiypbp Result EncounterGeneric External Data ProviderNOMS External Department UnsolicitedStart: 10-16-2023 End: 81-86-1002Qsbguhxan Result EncounterGeneric External Data ProviderNOMS External Department UnsolicitedStart: 08-08-7392Qymnpopzj encounterReaviva Bob RN Work Phone: Hematology/OncologyComment on above:Care Coordination (Results)Start: 10-16-2023 End: 14-89-6083Irfnqitgzw hospital visit by physicianArrival Time Radiology Work Phone: Radiology Pet CTComment on above:Lung nodules [R91.8] Start: 06-12-2023 End: 37-73-4817Zurttgcpmv hospital visit by physicianArrival Time Radiology Work Phone: Radiology Pet CTComment on above:Cancer of the base of tongue (HCC) [C01]Start: 81-72-6778Mwyjzvj encounter procedureSerene Morales MD Work Phone: [facility] HealthcareStart: 05-08-2023 End: 97-37-4476Ynamgrm encounter procedureYordan Feliz MD Work Phone: Radiation OncologyComment on above:Other specified disorders of thyroid (Primary Dx)Start: 03-20-2023 End: 74-76-1666Mdbmmb outpatient visit 25 minutesJohn England MD Work Phone: Hematology/OncologyComment on above: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); Mass of right lungStart: 03-14-2023 End: 35-81-9685Zrsbjvgcpf hospital visit by physicianArrival Time Radiology Work Phone: Radiology Pet CTComment on above:Lung nodules [R91.8] Start: 02-06-2023 End: 54-86-5793EpvbpjJeffry Drake MD Work Phone: Hematology/OncologyComment on above:Hyperlipidemia, unspecified hyperlipidemia type (Primary Dx); Type 2 diabetes mellitus without complication, unspecified whether medical service representative insulin use (HCC); Unspecified essential hypertensionLung nodule seen on imaging study (Primary Dx); Disorder of carbohydrate metabolism (HCC)Start: 02-06-2023 End: 31-67-3496Lmkqjo outpatient visit 25 minutesJohn England MD Work Phone: Hematology/OncologyComment on above: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); Mass of right lung; Lung nodulesStart: 01-29-2023 End: 32-48-1210Sbatqsvxes hospital visit by physicianArrival Time Radiology Work Phone: Radiology Pet CTComment on above:Cancer of the base of tongue (HCC) [C01]Start: 11-28-2022 End: 90-79-9821Opxjnjb encounter procedureG Jeyson Feliz MD Work Phone: Radiation OncologyComment on above: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)Start: 11-07-2022 End: 68-73-4603Hefmck outpatient visit 25 minutesJohn England MD Work Phone: Hematology/OncologyComment on above: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); Chemotherapy-induced neutropenia (HCC); Stage 3 chronic kidney disease, unspecified whether stage 3a or 3b CKD (HCC) Start: 10-31-2022 End: 46-73-5832dpfhtwfgisPsaax [address] Jose Work Phone: Hematology/OncologyComment on above: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); Stage 3 chronic kidney disease, unspecified whether stage 3a or 3b CKD (HCC) Start: 10-31-2022 End: 33-21-7517Exlanex encounter procedureNatalie Cadena APRN.[employer] Work Phone: SANDUSKYComment on above:Head and neck cancer (HCC) (Primary Dx)Start: 10-25-2022 End: 70-88-7242zkrovrieqqSdmqp Martinez O[employer]ER.[employer] Work Phone: Hematology/OncologyComment on above: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); Chemotherapy-induced neutropenia (HCC)Start: 10-25-2022 End: 78-78-9336Svsruzs encounter procedureNatalie Cadena ORE MINER.[employer] Work Phone: SANDUSKYStart: 09-31-9776Bpzrlgq encounter procedureG Jeyson Feliz MD Work Phone: SANDUSKYStart: 71-73-2593Zugcbhupy Oncology NoteG Jeyson Feliz MD Work Phone: Radiation OncologyComment on above:Completion Note Start: 10-19-2022 End: 94-30-6281cwclbbvidcPfsljxzque Kaetzel RD Work Phone: sANDUSKYStart: 10-19-2022 End: 29-93-4999Rrkgaatir therapyJacdavid Gil RD Work Phone: Nutrition TherapyComment on above:Nutrition Counseling Start: 10-19-2022 End: 68-89-1536Zyzxnt outpatient visit 25 minutesJohn England MD Work Phone: Hematology/OncologyComment on above: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); Chemotherapy-induced neutropenia (HCC)Start: 10-15-2022 End: 04-53-2896Dqujoys encounter procedureG Jeyson Feliz MD Work Phone: Radiation OncologyComment on above:Head and neck cancer (HCC) (Primary Dx)Start: 97-02-8619Qkahivgdq encounterJohn England MD Work Phone: Radiation OncologyComment on above:skin irritation Start: 10-08-2022 End: 57-19-3813hitjxbnqijVocnu 9 Jose Work Phone: Hematology/OncologyComment on above: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); Cancer of base of tongue (HCC)Start: 10-08-2022 End: 73-51-7923Zgdddeg encounter procedureG Jeyson Feliz MD Work Phone: Radiation OncologyComment on above:Head and neck cancer (HCC) (Primary Dx)Start: 10-05-2022 End: 19-71-9582stpujsuwodSrjwjgtjww Kaetzel RD Work Phone: sANDUSKYStart: 10-05-2022 End: 97-33-3374Zqutofjqb therapyJacqueline Kaadelsoel RD Work Phone: Nutrition TherapyComment on above:Nutrition Counseling Start: 10-01-2022 End: 88-60-9573kqnblphldzFqchy 9 Goodreads Work Phone: Hematology/OncologyComment on above: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); 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)Start: 10-01-2022 End: 37-56-8404Aphjxnc encounter procedureG Jeyson Feliz MD Work Phone: Radiation OncologyComment on above:Tongue cancer (HCC) (Primary Dx)Start: 09-24-2022 End: 80-86-5025Mysbihe encounter procedureG Jeyson Feliz MD Work Phone: Radiation OncologyComment on above:Tongue cancer (HCC) (Primary Dx)Start: 09-21-2022 End: 93-61-6527rhqvqcxqrrCyijmnskgy Kaadelsoel RD Work Phone: sANDUSKYStart: 09-21-2022 End: 30-27-7811Yezjbylsg therapyJacqueline Beauel RD Work Phone: Nutrition TherapyComment on above:Nutrition Assessment Start: 09-17-2022 End: 73-14-6664lgbpyasmmzSumrz [address] Work Phone: Hematology/OncologyComment on above: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); Cancer of the base of tongue (HCC)Start: 09-17-2022 End: 97-81-4877Gcwjyaz encounter procedureG Jeyson Feliz MD Work Phone: Radiation OncologyComment on above:Tongue cancer (HCC) (Primary Dx)Start: 09-10-2022 End: 04-77-5006qiqfwagmhtFiwvu 9 [address] Work Phone: Hematology/OncologyComment on above: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)Start: 09-10-2022 End: 52-47-4797Pasluyp encounter procedureYordan Feliz MD Work Phone: Radiation OncologyComment on above:Tongue cancer (HCC) (Primary Dx)Start: 59-54-8874Kacfxmldr encounterMarysol SHRESTHAW Hematology/OncologyComment on above:Social Work ServicesStart: 09-06-2022 Telephone encounterRafael Bob RN Work Phone: Hematology/OncologyComment on above:Care Coordination (C1D1 Post Treatment Call)Start: 09-03-2022 End: 42-58-0207mcbusmpfuaAdzlh 9 [employer]reads Work Phone: Hematology/OncologyComment on above: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)Start: 09-03-2022 End: 46-55-6783Ruahkq outpatient visit 15 minutesoJhn England MD Work Phone: Hematology/OncologyComment on above: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)Start: 09-03-2022 End: 40-07-3138Gjhsmod encounter procedureYordan Feliz MD Work Phone: Radiation OncologyComment on above:Tongue cancer (HCC) (Primary Dx)Start: 41-47-0458Locrzfkrg encounterRafael Bob RN Work Phone: Hematology/OncologyComment on above:Care Coordination (Pt Questions)Start: 46-77-5359Klemsgwnz encounterRafael Bob RN Work Phone: Hematology/OncologyComment on above:Care Coordination (PET Results)Start: 41-34-7818Czxkqdhti encounterRafael Bob RN Work Phone: Hematology/OncologyComment on above:Care Coordination (Pt Questions)Start: 08-27-2022 End: 15-51-9077Jyithdjeac hospital visit by physicianArrival Time Radiology Work Phone: Radiology Pet CTComment on above: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]Start: 40-01-8753Kjheftj encounter procedureCcf ProviderKettering Health [facility] DepartmentStart: 08-23-2022 End: 40-31-8694Wqspywbjhw hospital visit by physicianYordan Feliz MD Work Phone: Radiology Pet CTStart: 08-23-2022 End: 03-27-4350Lcectbt encounter procedureYordan Feliz MD Work Phone: Radiation OncologyComment on above:Tongue cancer (HCC) (Primary Dx)Start: 13-65-4416Pmyzrkfdh Oncology NoteG Jeyson Feliz MD Work Phone: Radiation OncologyComment on above:Simulation Note Treatment PlanningStart: 80-12-1869Vlgojuvnc encounterRafael Bob RN Work Phone: Hematology/OncologyComment on above:Care Coordination (Treatment Planning)Start: 11-64-5387Sktbmcpit encounterRafael Bob RN Work Phone: Hematology/OncologyComment on above:Care Coordination (Treatment Planning)Start: 08-20-2022 End: 01-54-8153gfgstgncciOrpmntutzr Kaetzel RD Work Phone: sANDUSKYStart: 08-20-2022 End: 65-94-8554Tmrtracux therapyDee Gil RD Work Phone: Nutrition TherapyComment on above:Nutrition Telephone Start: 84-88-9031Gnrdowb encounter procedureCcf [facility] DepartmentStart: 08-16-2022 End: 17-98-3518Ijajni outpatient new 60 minutesJohn England MD Work Phone: Hematology/OncologyComment on above: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)Start: 46-15-4366Sqvdqnf encounter procedureCcf [facility] DepartmentStart: 82-63-8048Qcaxchdbc encounterG Jeyson Feliz MD Work Phone: Radiation OncologyComment on above:Dental Clearance - Radiation TherapyStart: 65-62-3435rpduatdfufExeczi Weyer RNRadiation Oncology Comment on above:Patient EducationStart: 08-14-2022 End: 37-60-7785Vdpvpde encounter procedureG Jeyson Feliz MD Work Phone: Radiation OncologyComment on above:Tongue cancer (HCC) (Primary Dx); Head and neck cancer (HCC)Start: 43-89-6829Ijkgcdbho for preprocedural laboratory examinationDR SERENE [facility] Hospitaltart: 07-31-2022 End: 73-84-9545Bdavyvk encounter procedureMichael R NILL General Surgery Nill/Said [place] Start: 07-31-2022 End: 90-32-9169rxowffxilfAwnbvkj R NILLFacility:[facility] Hospitaltart: 07-27-2022 End: 27-27-9657cexwexidteMD SERENE JACOBSONSFacility:O5Mvgdo: 07-27-2022 End: 74-87-2647Wiaqnnhtl for preprocedural laboratory examinationDR SERENE JACOBSONSFacility:Y9Zkqas: 07-18-2022 End: 77-54-5500exbqitcrznEhrxzgr R NILLFacility:CD:[id number]: 07-11-2022 End: 79-77-9312flggmkrvkpGU RENEA NILLFacility:F2Ymqhj: 06-13-2022 End: 27-36-3907iaftwiyykcMmalwrm R NILLFacility: [place]Start: 06-13-2022 End: 36-21-3293Dfcamdh encounter procedureMichael R NILL General Surgery Nill/Said [place] Start: 06-09-2022 End: 09-18-9586qwpmhodqalYB KIM E KNIGHTFacility:N1Skbgp: 05-16-2961mxutbyeoqj Renea NILLFacility: [place]vueStart: 02-27-2022 End: 66-95-4226erksahgqilBD KIM E KNIGHTFacility:H1 Procedures DateProcedureProcedure DetailPerforming ClinicianStart: 81-92-1260Pxfwbsu of placement of stent for coronary artery diseaseHistory of heart artery stent Mason Johnson MD Work Phone: Start: 63-34-7212Pdxye hip unilateral with pelvis 1 viewGeneric External Data ProviderStart: 04-42-2292FGR 12-LEADGeneric External Data ProviderStart: 36-36-4716AJH APTTGeneric External Data ProviderStart: 74-60-7005SFT CMP (CMP) (FOR [facility] USE)Generic External Data ProviderStart: 52-64-8159VSARXM PROTHROMBIN TIME INR W/O COUMGeneric External Data Provider Start: 11-02-6868Ihbezkf bacterial quanttative colony count urineJr. Mechelle Boyer DO Work Phone: Start: 30-77-0230Mvffp hip unilateral with pelvis 2-3 viewsJr. Mechelle Boyer DO Work Phone: Start: 19-35-7239Acu any jt lower extrem w/o contrast matrlDdaisy oJhnson MD Work Phone: Start: 51-45-1370WH LUMBAR SPINE 2 OR 3VDdaisy Johnson MD Work Phone: Start: 55-85-4790Fovsupcven examination knee 3 views Mason Johnson MD Work Phone: Start: 07-10-8240Kbrwziitri glycosylated n8dBebxfs Shereen Johnson MD Work Phone: Start: 78-86-5177HDF T3 SERPL-MCNCGeneric External Data ProviderStart: 45-64-4919CIP T4 SERPL-MCNCGeneric External Data Provider Start: 02-00-3161ZFN TSH SERPL-ACNCGeneric External Data ProviderStart: 86-09-1191CN NECK SOFT TISSUE W IVCONGeneric External Data ProviderStart: 36-85-8572Si thorax w/contrast materialGeneric External Data ProviderStart: 91-56-5292ZTI CBC W AUTO DIFF BLDGeneric External Data ProviderStart: 10-13-2024 XR CERVICAL SPINE 2-3VDdaisy Johnson MD Work Phone: Start: 06-47-9577ED HIP LT MIN 2VDdaisy Johnson MD Work Phone: Start: 09-17-2024 End: 09-45-6248BPMONWJFMQR SKIN LESIONNatalie A Felter [employer] Work Phone: Start: 93-51-3869Vqfenapyko glycosylated v1pNlyerq Shereen Johnson MD Work Phone: Start: 51-19-7942EIRZDPCCDYW SKIN LESIONNatalie A Felter [employer] Work Phone: Start: 81-23-8985DD NECK SOFT TISSUE W IVCONGeneric External Data ProviderStart: 44-99-0665Ap soft tissue neck w/contrast material John England MD Work Phone: Start: 41-62-8194Sy thorax w/contrast materialJohn England MD Work Phone: Start: 38-14-0871ZVM CBC W AUTO DIFF BLDGeneric External Data ProviderStart: 16-76-1172NVG FERRITIN SERPL-MCNCGeneric External Data ProviderStart: 30-93-1562KCH FOLATE SERPL-MCNCGeneric External Data ProviderStart: 02-09-8937SGC IRON+TIBC PNL SERPLGeneric External Data Provider Start: 12-52-0599YSZ VIT B12 SERPL-MCNCGeneric External Data ProviderStart: 36-12-8740Foaqg count complete auto&auto difrntl Angélica England MD Work Phone: Start: 72-93-2094VFH LIPID PROFILE (FASTING)Shaikh Vidal WELCH Work Phone: Start: 52-93-5402IO NECK SOFT TISSUE W IVCONGeneric External Data ProviderStart: 60-18-5509Tm soft tissue neck w/contrast material John England MD Work Phone: Start: 57-33-1082Al thorax w/contrast Ozzy England MD Work Phone: Start: 14-53-1883Aanuv count complete auto&auto difrntl Angélica England MD Work Phone: Start: 03-50-4731Ea thorax w/contrast Ozzy England MD Work Phone: Start: 64-54-2487Qq thorax w/contrast Ozzy England MD Work Phone: Start: 33-38-0047Isf imaging ct attenuation skull base mid-thighG Jeyson Feliz MD Work Phone: Start: 62-62-2252Keqz bld gluc mntr dev cleared fda spec home useCcf ProviderStart: 38-84-7028OVC + DIFFJohn England MD Work Phone: Start: 99-11-0087Axlxdizxczxed metabolic panelJohn England MD Work Phone: Start: 92-30-6677Mewtn count complete auto&auto difrntl Angélica England MD Work Phone: Start: 10-80-6814Bffac count complete auto&auto difrntl Angélica England MD Work Phone: Start: 34-72-1740Aof imaging ct attenuation skull base mid-thighG Jeyson Feilz MD Work Phone: Start: 41-14-1060Ycop bld gluc mntr dev cleared fda spec home useCcf ProviderStart: 24-49-6913XZZ screeningDR MANNIE NELSONComment on above:Performed By: #### PSAD #### [facility] [address] [place] [address] Dr. Degroot [facility] ChildrenStart: 00-51-4294SgiidytabfrLffknyl NILL Start: 12-99-8702ChcyziglmopAklhwyh NILL Start: 20-22-9593AnnwziaiaaoZfutnys NILL Start: 70-11-5737VkfwyjyjgdaOsctpyt NILL Start: 28-55-3220Wfdtwqb catheterizationMichael NILL Start: 43-16-1035Xiembnzoj of stent in cardiac conduit Renea NILL Start: 36-51-8291FjlzyxrndekUenjsxt NILL Start: 02-85-0724EvzkqkxbvdfPxfpply NILL Start: 81-72-5520Xpshitd colectomyMichael NILL Comment on above:with colocolostomyBilateral extraction of cataractsMichael NILL History of placement of stent for coronary artery diseaseHistory of heart artery stentMason Johnson MD Work Phone: Plan of Treatment DateCare ActivityDetailAuthorStart: 11-50-4042Ygeagolv ScreeningDiabetes ScreeningThompson ClinicStart: 68-48-8309Nebxurxu ScreeningDiabetes Screening [facility]art: 11-76-7408Tygccqpc ScreeningDiabetes ScreeningCleveland Clinic Eucl[facility] Hospitaltart: 46-45-8732Nqnqs screening for proteinDiabetes: Urine Protein ScreeningRIVERTON HOSPITAL HealthcareStart: 54-28-4609BBCSTTPX SCREENDIABETES SCREENCleveland Clinic Euclid Hospitaltart: 63-76-3216Fzqjuzlc ScreeningDiabetes ScreeningKettering Health [facility] Start: 82-13-4336PGKFKJPK SCREENDIABETES SCREENCleveland Clinic Euclid Hospitaltart: 10-31-2025 DIABETES SCREENDIABETES SCREENCleveland Clinic Euclid Hospitaltart: 20-65-7284ITCBHMXS SCREEN DIABETES SCREENCleveland Clinic Euclid Hospitaltart: 28-12-5089ZXTJESOZ SCREENDIABETES SCREEN [facility]art: 06-91-2784JHSGABPN SCREENDIABETES SCREENKettering Health [facility] Start: 86-84-7406YAIRYVUS SCREENDIABETES SCREENCleveland Clinic Euclid Hospitaltart: 09-24-2025 DIABETES SCREENDIABETES SCREENCleveland Clinic Eucl[facility] Hospitaltart: 04-87-7385AJXMDMNG SCREEN DIABETES SCREENCleveland Clinic Euclid Hospitaltart: 16-66-7353XRISIBVD SCREENDIABETES SCREEN [facility]art: 18-78-4506NWUAGLXX SCREENDIABETES SCREENKettering Health [facility] Start: 02-24-2026Medicare Annual Wellness (AWV)Medicare Annual Wellness (AWV) [facility] HealthcareStart: 64-69-6020KFLWKDLM SCREENDIABETES SCREENKettering Health Springfield Start: 07-20-2025 End: 99-85-8268Yrxphnh encounter maepkpvby72/13/2026 8:30 AM EST Office Visit [facility] [place] [facility] [address] [facility] [address] [place] [address] Serene Morales MD [address] [facility] [address] [place] [address] NOMJanell Fleming OtolaryngologyStart: 06-16-2025 End: 49-90-7404Ukoxyht encounter mhpanvyak22/10/2025 1:00 PM EST Office Visit [facility]Janell [facility] [address] [place] [place] [phone] Jr. Mechelle Boyer DO [address] [facility] [address] [place] [address] QUIANA Garcia OrthopaedicsStart: 65-06-1695Bculglzvor A1c measurementDiabetes: Hemoglobin Z6HYVCCJohn J. 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 Stage 3 chronic kidney disease, unspecified whether stage 3a or 3b CKD (HCC) Expected: 05/06/2025 (Approximate), Expires: 11/04/2025[facility] Work Phone: Comment on above:Expected: 05/06/2025 (Approximate), Expires: 11/04/2025Start: 05-06-2025 End: 60-47-0883Ezhbdijhoextb metabolic 2000 panel - Serum or PlasmaCOMPREHENSIVE METABOLIC PANEL Lab Routine 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 Stage 3 chronic kidney disease, unspecified whether stage 3a or 3b CKD (HCC) Expected: 05/06/2025 (Approximate), Expires: 11/04/2025[facility] HospitalComment on above:Expected: 05/06/2025 (Approximate), Expires: 11/04/2025Start: 05-06-2025 End: 12-03-0606FO Chest W contrast IVCT CHEST W IVCON Radiology Routine 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 Stage 3 chronic kidney disease, unspecified whether stage 3a or 3b CKD (HCC) Expected: 05/06/2025 (Approximate), Expires: 12/04/2025leveland ClinicComment on above:Expected: 05/06/2025 (Approximate), Expires: 12/04/2025Start: 05-06-2025 End: 01-17-8700XV Neck W contrast IVCT NECK SOFT TISSUE W IVCON Radiology Routine 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 Stage3 chronic kidney disease, unspecified whether stage 3a or 3b CKD (HCC) Expected: 05/06/2025 (Approximate), Expires: 12/04/2025leveland ClinicComment on above:Expected: 05/06/2025 (Approximate), Expires: 12/04/2025Start: 05-06-2025 End: 02-21-1886Yuoiexw encounter swoyyhknd15/30/2025 10:30 AM EDT Office Visit Radiation Oncology [address] [place] [address] [place] [address] Yordan Feliz MD [address] [place] [address] [place] [address] 3 month follow upRadiation OncologyComment on above:3 month follow upStart: 05-06-2025 End: 43-46-0567Gzsqka-up dplsvpxea13/30/2025 10:00 AM EDT Visit (SP) Office Hematology/Oncology [address] [place] [address] [place] [address] John England MD [address] [facility] [place] [address] 6 MONTH FOLLOW UP AFTER CT SCANHematology/OncologyComment on above:6 MONTH FOLLOW UP AFTER CT SCANStart: 05-03-2025 End: 82-23-0291Zmpgcnf encounter hrtolinmz60/27/2025 1:00 PM EDT [facility] [address] [place] [phone] Michael Murray, ADULT NEUROLOGIST [address] [place] [address] [facility] OrthopaedicsStart: 04-30-2025 End: 77-39-7212XB Heart Perfusion W single state of exerciseStress test with myocardial perfusion Cardiac Nuclear Medicine Routine Primary osteoarthritis of left hip 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, without long-term current use of insulin (HCC) 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 Abnormal EKG History of heart artery stent Expected: 04/30/2025 (Approximate), Expires: 04/30/2027[facility] [employer] Work Phone: Comment on above:Expected: 04/30/2025 (Approximate), Expires: 04/30/2027Start: 04-30-2025 End: 16-03-3997Eamnehd encounter uizbkxkni74/24/2025 11:45 AM EDT Office Visit QU[address] [facility] [address] [place] [phone] Mason Johnson MD [address] [facility] [address] [place] [address] NOMJanell Young [facility]ic[facility] HospitaleStart: 04-29-2025 Bacteria identified in Urine by CultureMetroHealth Parma Medical Centertart: 50-19-5484Fugqq cultureMetroHealth Parma Medical Centertart: 04-29-2025 End: 73-65-4278Ldopfer encounter vmyiryucc98/23/2025 9:15 AM EDT Appointment Radiology Pet CT [address] [place] [address] [place] [address] CT CHEST AND NECKRadiology Pet CTComment on above:CT CHEST AND NECKStart: 04-28-2025 End: 12-56-8898gBWB in Blood by Coagulation assayAPTT Lab Routine Primary osteoarthritis of left hip Pre-op evaluation Expected: 04/28/2025, Expires: 04/28/2026[facility] [employer] Work Phone: Comment on above:Expected: 04/28/2025, Expires: 04/28/2026Start: 04-28-2025 End: 10-98-0697Akrdccjm identified in Urine by CultureUrine culture Microbiology Routine Primary osteoarthritis of left hip Pre-op evaluation Expected: (Approximate), Expires: 04/28/2026PR HealthcareComment on above: Expected: 04/28/2025 (Approximate), Expires: 04/28/2026Start: 04-28-2025 End: 00-94-9821HWF W Auto Differential panel - BloodCBC and differential Lab Routine Primary osteoarthritis of left hip Pre-op evaluation Expected: 04/08 (Approximate), Expires: 04/28/2026NO HealthcareComment on above: Expected: 04/28/2025 (Approximate), Expires: 04/28/2026Start: 04-28-2025 End: 63-16-8812Eccvgthqoxgaa metabolic 2000 panel - Serum or PlasmaComprehensive metabolic panel Lab Routine Primary osteoarthritis of left hip Pre-op evaluation Expected: 04/28/2025 (Approximate), Expires: 04/28/2026 HealthcareComment on above:Expected: 04/28/2025 (Approximate), Expires: 04/28/2026Start: 04-28-2025 End: 07-18-4237BSN 12 leadECG 12 lead ECG Routine Primary osteoarthritis of left hip Pre-op evaluation Expected: 04/28/2025 (Approximate), Expires: 04/28/2026 NOMS HealthcareComment on above:Expected: 04/28/2025 (Approximate), Expires: 04/28/2026Start: 04-28-2025 End: 16-90-4893Zisqmqkmhus time (PT) in Blood by Coagulation assayProtime-INR Lab Routine Primary osteoarthritis of left hip Pre-op evaluation Expected: 04/28/2025 (Approximate), Expires: 04/28/2026NOPR HealthcareComment on above: Expected: 04/28/2025 (Approximate), Expires: 04/28/2026Start: 04-28-2025 End: 62-86-8328Pvbfnylhjk complete panel - UrineUrinalysis with reflex microscopic Lab Routine Primary osteoarthritis of left hip Pre-op evaluation Expected: 04/28/2025 (Approximate), Expires: 04/28/2026NOMS HealthcareComment on above:Expected: 04/28/2025 (Approximate), Expires: 04/28/2026art: 04-28-2025 End: 37-52-3591JC Hip - left 3 ViewsXR hip left 2 or 3 views Imaging Routine Primary osteoarthritis of left hip Pre-op evaluation Expected: 04/28/2025, Expires: 04/28/2026NOPR HealthcareComment on above:Expected: 04/28/2025, Expires: 04/28/2026Start: 04-28-2025 End: 31-12-9824Bqjpebq encounter procedureNOMS [place] OrthopaedicsComment on above:ArrivedStart: 79-41-5506Qokigebo blood countHemoglobin/HematocritCleveland Clinic Euclid Hospitaltart: 71-68-1550Ndwqqcpnza measurementSerum CreatinineKettering Health Springfield Start: 04-20-2025 End: 46-53-2939Hjzwvtw encounter procedureNO CI ENTComment on above:Arrived Start: 04-14-2025 End: 06-48-8775Ucqgtki encounter ermkodiop56/08/2025 1:15 PM EDT Office Visit [facility] [place] [facility] [address] [place], [place] Jr. Mechelle Boyer C, DO [address] [facility] [address] [place] [address] Left hip pain; Pseudogout involving multiple joints; Primary osteoarthritis of left hipNOPR [facility] Comment on above:Left hip pain; Pseudogout involving multiple joints; Primary osteoarthritis of left hipStart: 03-26-2025 End: 16-42-6913Ixsnjppoaupud metabolic 2000 panel - Serum or PlasmaComprehensive metabolic panel Lab Routine Primary hypertension 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, without long-term current use of insulin (HCC) Moderate mixed hyperlipidemia not requiring statin therapy Expected: 03/26/2025 (Approximate), Expires: 03/26/2026NOMS HealthcareComment on above:Expected: 03/26/2025 (Approximate), Expires: 03/26/2026Start: 03-26-2025 End: 82-42-5177Ynvmg 1996 panel - Serum or PlasmaLipid panel Lab Routine Primary hypertension 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, without long-term current use of insulin (HCC) Moderate mixed hyperlipidemia not requiring statin therapy Expected: 03/26/2025 (Approximate), Expires: 03/26/2026[facility] Work Phone: Comment on above:Expected: 03/26/2025 (Approximate), Expires: 03/26/2026Start: 03-26-2025 End: 14-71-7816Iosgcoxxrmzt/Creatinine panel in random UrineMicroalbumin / creatinine, urine ratio Lab Routine Primary hypertension 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, without long-term current use of insulin (HCC) Moderate mixed hyperlipidemia not requiring statin therapy Expected: 03/26/2025 (Approximate), Expires: 03/26/2026NOPR HealthcareComment on above:Expected: 03/26/2025 (Approximate), Expires: 03/26/2026Start: 03-26-2025 End: 40-00-3752Zdpywfv encounter procedureNOMS [place] [facility] MedinceComment on above:ArrivedStart: 16-60-5619Hmdubwgfw vaccinationInfluenza Vaccine (#1)NOMS HealthcareStart: 11-89-0311Xaijvelxer A1c measurementDiabetes: Hemoglobin A1C NOMS HealthcareStart: 01-19-2025 End: 25-42-7103Wmkfrgg encounter wfvabnjvf86/15/2025 8:00 AM EDT Office Visit [facility] E[facility] [address] [facility] [address] [place] [address] Serene Morales MD [address] [facility] [address] [place] [address] NOMS CI ENTStart: 01-06-2025 End: 11-32-2225Vfdjmxz encounter procedureNOMS CI FMComment on above:Left hip painStart: 12-28-2024 End: 31-26-3200WC Lumbar spine 2 or 3 ViewsXR lumbar spine 2 or 3 views Imaging Routine Left hip pain Expected: 12/28/2024, Expires: 12/28/2025[facility] Work Phone: Comment on above:Expected: 12/28/2024, Expires: 12/28/2025Start: 12-28-2024 End: 58-47-2703Rymosvw encounter xybauonkb03/23/2025 9:30 AM EDT Office Visit [facility] CI FM [address] [facility] [address] [place] [phone] Msaon Johnson MD [address] [facility] [address] [place] [address] NOMS CI FMStart: 12-09-2024 End: 12-09-2025 reactive protein [Mass/volume] in Serum or PlasmaC-reactive protein Lab Routine Inflammatory arthritis Expected: 12/09/2024 (Approximate), Expires: 12/09/2025NOPR HealthcareComment on above:Expected: 12/09/2024 (Approximate), Expires: 12/09/2025Start: 12-09-2024 End: 25-40-5035Wjdregimnxa sedimentation rateSedimentation rate, automated Lab Routine Inflammatory arthritis Expected: 12/09/2024 (Approximate), Expires: 12/09/2025NOPR HealthcareComment on above:Expected: 12/09/2024 (Approximate), Expires: 12/09/2025Start: 12-09-2024 End: 76-54-2591Meitzca Ab [Titer] in Serum by ImmunofluorescenceANA Lab Routine Inflammatory arthritis Expected: 12/09/2024 (Approximate), Expires: 12/09/2025 NOMS HealthcareComment on above:Expected: 12/09/2024 (Approximate), Expires: 12/09/2025Start: 12-09-2024 End: 94-39-4437HPSGCIKJEB ARTHRITIS DIAGNOSTIC PANEL 3RHEUMATOID ARTHRITIS DIAGNOSTIC PANEL 3 Lab Routine Inflammatory arthritis Expected: 12/09/2024 (Ce roximate), Expires: 12/09/2025[facility] Work Phone: Comment on above:Expected: 12/09/2024 (Approximate), Expires: 12/09/2025Start: 12-09-2024 End: 96-79-7401Ragkg [Mass/volume] in Serum or PlasmaUric acid Lab Routine Inflammatory arthritis Expected: 12/09/2024 (Approximate), Expires: 12/09/2025 NOMS HealthcareComment on above:Expected: 12/09/2024 (Approximate), Expires: 12/09/2025Start: 12-09-2024 End: 67-90-0838DO Knee - left 3 ViewsXR knee 3 views left Imaging Routine Effusion of left knee Acute pain of left knee Expected: 12/09/2024, Expires: 12/09/2025NOMS HealthcareComment on above:Expected: 12/09/2024, Expires: 12/09/2025Start: 12-09-2024 End: 66-88-1167Rxknlhw encounter procedureNOMS CI FMComment on above:Arrived Start: 12-04-2024 End: 56-79-0005Qcojgklrgmw [Units/volume] in Serum or PlasmaTHYROID STIMULATING HORMONE Lab Routine Acquired hypothyroidism Expected: 12/04/2024, Expires: 11/04[facility] Work Phone: Comment on above:Expected: 12/04/2024, Expires: 11/04/2025Start: 12-04-2024 End: 89-50-8163Upfjiynmc (T4) [Mass/volume] in Serum or PlasmaT4/THYROXINE Lab Routine Acquired hypothyroidism Expected: 12/04/2024, Expires: 11/04/2025 [facility]Comment on above:Expected: 12/04/2024, Expires: 11/04/2025Start: 12-04-2024 End: 02-94-4548Hkztegqadqxqlndl (T3) [Mass/volume] in Serum or PlasmaT3 Lab Routine Acquired hypothyroidism Expected: 12/04/2024, Expires: 11/04/2025 [facility] SpringfieldComment on above:Expected: 12/04/2024, Expires: 11/04/2025Start: 12-02-2024 End: 34-98-7740Ybwbodr encounter snifsyzma15/28/2025 11:30 AM EDT Office Visit [facility] [address] [place] [address] [place] [address] labNortCorewell Health [facility] 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 Stage 3 chronic kidney disease, unspecified whether stage 3a or 3b CKD (HCC) Expected: 11/04/2024 (Approximate), Expires: 05/06/2025[facility] ClinicComment on above:Expected: 11/04/2024 (Approximate), Expires: 05/06/2025Start: 11-04-2024 End: 11-11-0284OC Chest W contrast IVCT CHEST W IVCON Radiology Routine 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 Stage 3 chronic kidney disease, unspecified whether stage 3a or 3b CKD (HCC) Expected: 11/04/2024 (Approximate), Expires: 06/05/2025[facility] ClinicComment on above:Expected: 11/04/2024 (Approximate), Expires: 06/05/2025Start: 11-04-2024 End: 37-31-3759DM Neck W contrast IVCT NECK SOFT TISSUE W IVCON Radiology Routine 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 Stage3 chronic kidney disease, unspecified whether stage 3a or 3b CKD (HCC) Expected: 11/04/2024 (Approximate), Expires: 06/05/2025[facility] Work Phone: Comment on above:Expected: 11/04/2024 (Approximate), Expires: 06/05/2025Start: 11-04-2024 End: 90-04-0932Hvcgsex encounter xjieqlvtr36/30/2025 11:45 AM EDT Office Visit Radiation Oncology [address] [place] [address] [place] [address] Yordan Feliz MD [address] [facility] [place] [address] 6 month Follow upRadiation OncologyComment on above:6 month Follow upStart: 11-04-2024 End: 66-00-7777kuaqalidty37/30/2025 11:20 AM EDT Visit (SP) Office Hematology/Oncology [address] [facility] [place] [address] John England MD [address] [facility] [place] [address] PT SEES DENA BEFORE SINCERE TODAYHematology/OncologyComment on above:PT SEES DENA BEFORE SINCERE TODAYStart: 10-28-2024 End: 89-19-6040Vtbgeld encounter sbnfrirsu94/23/2025 7:45 AM EDT Appointment Radiology Pet CT [address] [facility] [place] [address] CT CHEST AND NECKRadiology Pet CTComment on above:CT CHEST AND NECKStart: 10-26-2024 End: 40-00-2934Teyunop encounter procedureNOMS CI FMComment on above:Neck pain on left side; Left hip painStart: 10-20-2024 End: 52-22-2932Hytsirw encounter inkmdgges74/15/2025 8:00 AM EDT Office Visit [facility] [address] [facility] [address] [place] [address] Serene Morales MD [address] [facility] [address] [place] [address] NOMS CI ENTStart: 50-29-8712Tnwummep blood count Hemoglobin/HematocritThompson ClinicStart: 95-73-2631Sittagqawe measurement Serum CreatinineCleberger hospital ClinicStart: 10-12-2024 End: 87-67-0821Htuatju encounter idofhowxi36/07/2025 3:45 PM EDT Office Visit [facility] [address] [facility] [address] [place] [address] Mason Johnson MD [address] [facility] [address] [place] [address] ArrivedNOMS CI FMComment on above:ArrivedStart: 10-12-2024 End: 18-56-7058YA Cervical spine 2 or 3 ViewsXR cervical spine 2 or 3 views Imaging Routine Neck pain on left side Expected: 10/12/2024, Expires: 10/12/2025 NOMS HealthcareComment on above:Expected: 10/12/2024, Expires: 10/12/2025Start: 10-12-2024 End: 97-94-1929NI Hip - left 3 ViewsXR hip left 2 or 3 views Imaging Routine Left hip pain Expected: 10/12/2024, Expires: 10/12/2025[facility] Work Phone: Comment on above:Expected: 10/12/2024, Expires: 10/12/2025Start: 03-15-5684Hfmqjqqg screeningDiabetes: Retinopathy ScreeningNOMS HealthcareStart: 08-31-2024 End: 57-65-9076Lgndboy encounter procedureNOMS CI FMComment on above:Arrived Start: 07-21-2024 End: 10-07-7374Vvfdmzw encounter procedureNOMS CI ENTComment on above:Arrived Start: 61-94-0300Ovrchgc Directive DiscussionAdvance Directive Discussion [facility]art: 06-16-2024 End: 98-88-4776Rqgfecw encounter jyuwjrkvo70/10/2024 9:00 AM EST Office Visit [facility] [address] [facility] [address] [place] [address] Serene Morales MD [address] [facility] [address] [place] [address] NOMS CI ENTStart: 12-04-2024Medicare Annual Wellness (AWV)Medicare Annual Wellness (AWV)NOMS HealthcareStart: 58-83-2040Tmwbiovtsaun Vaccine: 65+ Years (1 of 2 - PCV)Pneumococcal Vaccine: 65+ Years (1 of 2 - PCV) NOMS HealthcareComment on above:Postponed from 10/31/1949 (Patient Refused) Start: 05-26-2024 End: 24-15-5914Gzhsrds encounter ubpbypceq66/19/2024 10:20 AM EST Office Visit [facility] [address] [place] [address] Barry Stevens APRN-[employer] [address] [place] [address] NOMS SWS DERMStart: 32-21-2260Yeimxxildg A1c measurementDiabetes: Hemoglobin W6PUVEO HealthcareStart: 05-19-2024 End: 74-61-0627Vhagrgb encounter cqjmciqka78/12/2024 9:00 AM EST Office Visit [facility] [address] [address] [place] [address] Sernee Morales MD [address] [place] [address] NOMS CI ENTStart: 05-06-2024 End: 43-80-0953jkxvlttyal85/30/2024 3:20 PM EDT Visit (SP) Office Hematology/Oncology [address] [facility] [address] [place], [place] [phone] John England MD [address] [facility] [place] [address] PT SEES DENA BEFORE SINCERE TODAYHematology/OncologyComment on above:PT SEES DENA BEFORE SINCERE TODAYStart: 05-06-2024 End: 32-43-6260Wbtpwnb encounter igmqakbep03/30/2024 3:00 PM EDT Office Visit Radiation Oncology [address] [facility] [place] [address] Yordan Feliz MD [address] [place] [address] PT SEES SINCERE AFTER THIS APPTRadiation OncologyComment on above:PT SEES SINCERE AFTER THIS APPTStart: 04-30-2024 End: 81-62-3384Jsjzyqu encounter procedureNOMS CI FMComment on above:Arrived Start: 04-29-2024 End: 42-97-1610Yvmunsv encounter ndxhhdnut57/23/2024 10:30 AM EDT Office Visit Radiation Oncology [address] [place] [address] [place] [address] Yordan Feliz MD [address] [place] [address] [place] [address] FollowupRadiation OncologyComment on above:FollowupStart: 04-29-2024 End: 80-69-4564Fkmred-up /23/2024 10:00 AM EDT Visit (SP) Office Hematology/Oncology [address] [facility] [place] [address] John England MD [address] [facility] [place] [address] 6 month follow up after scansHematology/OncologyComment on above:6 month follow up after scansStart: 04-23-2024 End: 50-00-4131BWN W Auto Differential panel - BloodCOMPLETE BLOOD COUNT AND DIFFERENTIAL Lab Routine 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 Ex pected: 04/23/2024 (Approximate), Expires: 10/22/2024[facility] Work Phone: Comment on above:Expected: 04/23/2024 (Approximate), Expires: 10/22/2024Start: 04-23-2024 End: 56-31-1462Ouvkaxxuf (Vitamin B12) [Mass/volume] in Serum or PlasmaVITAMIN B12 Lab Routine 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 Expected: 04/23/2024 (Approximate), Expires: 10/22/2024[facility] Work Phone: Comment on above:Expected: 04/23/2024 (Approximate), Expires: 10/22/2024Start: 04-23-2024 End: 01-59-7314Qchnzavtotlvk metabolic 2000 panel - Serum or PlasmaCOMPREHENSIVE METABOLIC PANEL Lab Routine 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 Expected:04/23/2024 (Approximate), Expires: 10/22/2024[facility] Work Phone: Comment on above:Expected: 04/23/2024 (Approximate), Expires: 10/22/2024Start: 04-23-2024 End: 10-28-8631DP Chest W contrast IVCT CHEST W IVCON Radiology Routine 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 Expected: 04/23/2024 (Approximate), Expires: 11/21/2024[facility] Work Phone: Comment on above:Expected: 04/23/2024 (Approximate), Expires: 11/21/2024Start: 04-23-2024 End: 01-56-3405YT Neck W contrast IVCT NECK SOFT TISSUE W IVCON Radiology Routine 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 Expected: 04/23/2024 (Approximate), Expires: 11/21/2024[facility] Work Phone: Comment on above:Expected: 04/23/2024 (Approximate), Expires: 11/21/2024Start: 04-23-2024 End: 85-93-7879Oqacmjbc [Mass/volume] in Serum or PlasmaFERRITIN Lab Routine 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 Expected: 04/23/2024 (Approxima te), Expires: 10/22/2024[facility] Work Phone: Comment on above:Expected: 04/23/2024 (Approximate), Expires: 10/22/2024Start: 04-23-2024 End: 74-20-2726Upusxd [Mass/volume] in Serum or PlasmaFOLATE, SERUM Lab Routine 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 Expected: 04/23/2024 (Appr oximate), Expires: [address] [place] [address] Work Phone: Comment on above:Expected: 04/23/2024 (Approximate), Expires: 10/22/2024Start: 04-23-2024 End: 75-23-8870Mtjv and Iron binding capacity panel - Serum or PlasmaIRON AND TIBC Lab Routine 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 [address] [place] [address] Serene Morales MD [address] [facility] [address] [place] [address] NOMS CI ENTStart: 03-24-2024 End: 52-73-0648Jkosztx encounter procedureNOMS CI ENTComment on above:Arrived Start: 21-54-0372Octnh-19 Vaccine ( season)Covid-19 Vaccine ( season)[facility]: 90-91-4708Ilzco-19 Vaccine ( season)Covid-19 Vaccine ( season)[facility]: 03-08-2024 Influenza vaccinationCleveland Clinic Euclid Hospitaltart: 58-65-6530BYILZ CREATININESERUM CREATININECleveland Clinic Euclid Hospitaltart: 80-21-8397Acghz screening for proteinDiabetes: Urine Protein ScreeningNOPR HealthcareStart: 74-85-4751VSJUX CREATININESERUM CREATININECleveland Clinic [facility] Hospitaltart: 11-06-2023 End: 39-13-3637Ikucxblhkib [Units/volume] in Serum or PlasmaTSH BLD Lab Routine Other specified disorders of thyroid Expected: 11/06/2023 (Approximate), Expires : 02/05/2024[facility] Work Phone: Comment on above:Expected: 11/06/2023 (Approximate), Expires: 02/05/2024Start: 11-06-2023 End: 88-71-1015Elbspyayq (T4) free [Mass/volume] in Serum or PlasmaT4 FREE/FREE THYROX Lab Routine Other specified disorders of thyroid Expected: 11/06/2023 (Approximate), Expires: 02/05/2024[facility] Work Phone: Comment on above:Expected: 11/06/2023 (Approximate), Expires: 02/05/2024Start: 11-06-2023 End: 82-73-7809Ibuxgaoipyjmsivo (T3) [Mass/volume] in Serum or PlasmaT3 BLD Lab Routine Other specified disorders of thyroid Expected: 11/06/2023 (Approximate), Expires: 02/05/2024[facility] Work Phone: Comment on above:Expected: 11/06/2023 (Approximate), Expires: 02/05/2024Start: 46-36-8330OQWONCPRZQ/HEMATOCRITHEMOGLOBIN/HEMATOCRIT [facility]: 29-03-4094VZRIP CREATININESERUM CREATININECleveland Clinic [facility] Hospitaltart: 99-33-8295Uhqlbdu Directive DiscussionAdvance Directive Discussion [facility]: 99-07-1716Rfgyyohagi Health ScreeningBehavioral Health ScreeningCleveland Clinic Euclid Hospitaltart: 06-19-2023 End: 09-48-5353YVY W Auto Differential panel - BloodCBC + DIFF Lab Routine 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) Mass of right lung Expected: 06/19/2023 (A pproximate), Expires: 03/20/2024[facility] Work Phone: Comment on above:Expected: 06/19/2023 (Approximate), Expires: 03/20/2024Start: 06-19-2023 End: 00-89-5614Jllvahqrcrzaw metabolic 2000 panel - Serum or PlasmaCOMP METABOLIC PANEL Lab Routine 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) Mass of right lung Expected: 06/19/2023 (Approximate), Expires: 03/20/2024[facility] Work Phone: Comment on above:Expected: 06/19/2023 (Approximate), Expires: 03/20/2024Start: 06-19-2023 End: 81-49-7037UT CHEST W IVCONCT CHEST W IVCON Radiology Routine 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) Mass of right lung Expected: 06/19/2023 (Approximate), Expires: 04/18/2024[facility] Work Phone: Comment on above:Expected: 06/19/2023 (Approximate), Expires: 04/18/2024Start: 03-13-2023 End: 44-24-5723QV CHEST W IVCONCT CHEST W IVCON Radiology Routine Lung nodules Expected: 03/13/2023 (Approximate), Expires: 03/07/2024[facility] Work Phone: Comment on above:Expected: 03/13/2023 (Approximate), Expires: 03/07/2024Start: 00-03-7341Bhbte-19 Vaccine ( season)Covid- 19 Vaccine ( season)[facility]: 28-45-8600Tomykcvtr vaccinationCleveland Clinic Eucl[facility] Hospitaltart: 02-06-2023 End: 51-62-4023VSUBUYT/CREAT RATIO RND URWhite Hospital Work Phone: Comment on above:Expected: 02/06/2023, Expires: 04/08/2023Start: 02-06-2023 End: 01-59-8490Wwnsrduqjw [Mass/volume] in Urine collected for unspecified durationWhite Hospital Work Phone: Comment on above:Expected: 02/06/2023, Expires: 04/08/2023Start: 02-06-2023 End: 18-22-3306Vxcokfmpmd A1c in BloodWhite Hospital Work Phone: Comment on above:Expected: 02/06/2023, Expires: 04/08/2023Start: 02-06-2023 End: 52-82-3297Yhmzj 1996 panel - Serum or PlasmaWhite Hospital Work Phone: Comment on above:Expected: 02/06/2023, Expires: 04/08/2023Start: 01-30-2023 End: 61-74-7702GMP W Auto Differential panel - BloodCBC + DIFF Lab Routine 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) Chemotherapy-induced neutropenia (HCC) Exp ected: 01/30/2023 (Approximate), Expires: 11/08/2023[facility] Work Phone: Comment on above:Expected: 01/30/2023 (Approximate), Expires: 11/08/2023Start: 01-30-2023 End: 06-16-4891Rcyetjflmnhhn metabolic 2000 panel - Serum or PlasmaCOMP METABOLIC PANEL Lab Routine 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) Chemotherapy- induced neutropenia (HCC) Expected: 01/30/2023 (Approximate), Expires: 11/08/2023[facility] Work Phone: Comment on above:Expected: 01/30/2023 (Approximate), Expires: 11/08/2023Start: 01-28-2023 End: 79-06-2391RN PET/CT SKULL-THIGH SUBSEQUENTNM PET/CT SKULL-THIGH SUBSEQUENT Radiology Routine Cancer of the base of tongue (HCC) Expected: 01/28/2023, Expires: 12/28/2023[facility] Work Phone: Comment on above:Expected: 01/28/2023, Expires: 12/28/2023Start: 11-08-2022 End: 33-72-4300CWI W Auto Differential panel - BloodCBC + DIFF Lab Routine Cancer of the base of tongue (HCC) Expected: 11/08/2022, Expires: 01/08/2023 [facility] Work Phone: Comment on above:Expected: 11/08/2022, Expires: 01/08/2023Start: 11-08-2022 End: 33-95-2337Vznuwqvdesfjk metabolic 2000 panel - Serum or PlasmaCOMP METABOLIC PANEL Lab Routine Cancer of the base of tongue (HCC) Expected: 11/08/2022, Expires: 01/08/2023[facility] Work Phone: Comment on above:Expected: 11/08/2022, Expires: 01/08/2023Start: 10-26-2022 End: 85-72-5414WSM W Auto Differential panel - BloodCBC + DIFF Lab Routine 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) Chemotherapy-induced neutropenia (HCC) Exp ected: 10/26/2022, Expires: 12/26/2022[facility] Work Phone: Comment on above:Expected: 10/26/2022, Expires: 12/26/2022Start: 10-26-2022 End: 73-32-2760Ifjqgzjujovvz metabolic 2000 panel - Serum or PlasmaCOMP METABOLIC PANEL Lab Routine 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) Chemotherapy- induced neutropenia (HCC) Expected: 10/26/2022, Expires: 12/26/2022[facility] Work Phone: Comment on above:Expected: 10/26/2022, Expires: 12/26/2022Start: 27-74-1818GJPLSJT DIRECTIVE DISCUSSIONADVANCE DIRECTIVE DISCUSSIONCleKettering Health Daytontart: 76-79-4356WAGXWZQPJM ASSESSMENTDEPRESSION ASSESSMENTCleveland Clinic Eucl[facility] Hospitaltart: 50-43-1224YUVHQ-19 VACCINE (3 - Booster for Moderna series)COVID-19 VACCINE (3 - Booster for Moderna series)[facility] Start: 39-75-1728XDSUZ-19 VACCINE (3 - Moderna risk series)COVID-19 VACCINE (3 - Moderna risk series)[facility]: 80-93-6853RNW Vaccine (1 - 1-dose 75+ series)RSV Vaccine (1 - 1-dose 75+ series)[facility]: 10-31-2008 Pneumococcal Vaccine: 65+ (1 of 1 - PCV)Pneumococcal Vaccine: 65+ (1 of 1 - PCV) [facility]: 46-84-9615LQUFTGHXSBFT: 65+ (1 - PCV)PNEUMOCOCCAL: 65+ (1 - PCV)[facility]: 50-48-9421Uxkgwmepu B Vaccines (1 of 3 - Risk 3- dose series)Hepatitis B Vaccines (1 of 3 - Risk 3-dose series)[facility] Start: 59-63-8684YAI Vaccine (1 - 1-dose 60+ series)RSV Vaccine (1 - 1-dose 60+ series)[facility]: 72-14-9228Dalymbwvpwsh Vaccine: 50+ (1 of 1 - PCV) Pneumococcal Vaccine: 50+ (1 of 1 - PCV)[facility]: 10-31-1993 SHINGRIX VACCINE (1 of 2)SHINGRIX VACCINE (1 of 2)[facility]: 36-61-0298JUVVRGQO SCREENDIABETES SCREENCleveland Clinic Euclid Hospitaltart: 10[birth year]31-1962 Hepatitis A Vaccines (1 of 2 - Risk 2-dose series)Hepatitis A Vaccines (1 of 2 - Risk 2-dose series)[facility] HealthcareStart: 78-94-1328Zclvcjtgkeur Vaccine: 65+ Years (1 of 2 - PCV)Pneumococcal Vaccine: 65+ Years (1 of 2 - PCV)[facility] HealthcareStart: 70-13-7573QBZSIQHC VACCINE (1 of 2)SHINGRIX VACCINE (1 of 2) [facility]: 35-12-7984Ycatn microalbumin profileKettering Health [facility] Start: 16-82-8277XHWKUN PCP TEAM CHRONIC DISEASE VISITANNUAL PCP TEAM CHRONIC DISEASE VISITCleveland Clinic Euclid Hospitaltart: 39-17-6066Ixmcool ScreeningAnxiety Screening [facility]: 70-95-3560Qfqusclism ScreeningDepression Screening [facility]: 58-47-8269OFAMGXQTY C SCREENINGHEPATITIS C SCREENING [facility]: 11-15-6006LInV/Tdap/Td Vaccines (1 - Tdap)DTaP/Tdap/Td Vaccines (1 - Tdap)[facility] HealthcareStart: 86-96-1264Jweolmyahxpt Vaccine: 65+ (1 - PCV)Pneumococcal Vaccine: 65+ (1 - PCV)[facility]: 10-31-1951 Pneumococcal Vaccine: 65+ (1 of 2 - PCV)Pneumococcal Vaccine: 65+ (1 of 2 - PCV) [facility]: 00-55-2939Kstqavzbatmq Vaccine: 65+ Years (1 of 2 - PCV) Pneumococcal Vaccine: 65+ Years (1 of 2 - PCV)[facility] HealthcareStart: [birth year]-31-1949 PNEUMOCOCCAL: 65+ (1 - PCV)PNEUMOCOCCAL: 65+ (1 - PCV)[facility] End: 70-68-1191QUC W Auto Differential panel - BloodCBC + DIFF Lab Routine Cancer of base of tongue (HCC) Once per week for 10 Occurrences starting 03/2023 until 08/16/2023, 1 completed[facility] Work Phone: Comment on above:Once per week for 10 Occurrences starting 08/16/2022 until 08/16/2023, 1 completedCBC W Auto Differential panel - BloodCBC + DIFF Lab Routine Cancer of base of tongue (HCC) 10/08/2022 11:35 [facility] Work Phone: End: 12-68-7742Nhjrzcayojfyq metabolic 2000 panel - Serum or PlasmaCOMP METABOLIC PANEL Lab Routine Cancer of base of tongue (HCC) Once per week for 10 Occurrences starting 08/16/2022 until 08/16/2023, 1 completedWhite [facility] Work Phone: Comment on above:Once per week for 10 Occurrences starting 08/16/2022 until 08/16/2023, 1 completedCT SIM PLANNING RADIATION ONCOLOGYCT SIM PLANNING RADIATION ONCOLOGY Radiology Routine Tongue cancer (HCC) [facility]: Comment on above:Ordered: 08/23/2022 End: 64-43-5860Xrp imaging ct attenuation skull base mid-thighNM PET/CT SKULL- THIGH INITIAL Radiology Routine Tongue cancer (HCC) Head and neck cancer (HCC) 1 Occurrences starting 08/14/2022 until [facility] Work Phone: Comment on above:1 Occurrences starting 08/14/2022 until 4Prostate specific Ag [Mass/volume] in Serum or PlasmaPSA Lab Routine Prostate cancer screening Ordered: 08/31/2024[facility] Work Phone: Comment on above:[facility]: [facility] Immunizations Immunization DateImmunizationNotesCare BslrnbvsXxhfqkkv51-41-3827Oednwdkti, High-dose Seasonal, Quadrivalent, Preservative FreeMannie Rodriguez ADULT NEUROLOGIST Work Phone: [facility] CenterEpbcgquzjj64-41-6545zuskzgbpo virus vaccine, unspecified formulationMason Johnson MD Work Phone: [facility] CenterPkdruexcnj33-69-5533Vlzcsvczy, Seasonal, Quadrivalent, AdjuvantedDdaisy Johnson MD Work Phone: [facility] CenterDjjupbfjhw97-74-2023iuhssdhjf nasal, unspecified formulationMercy Health [facility]iff[facility] Hospital10-27-2022influenza virus vaccine, unspecified formulationMichael NILL GenePlacentia-Linda HospitalEwdosliz26-87-3475Zsagmftxz, Seasonal, Quadrivalent, AdjuvantJason Johnson MD Work Phone: [facility] CenterYbjaepmhqx60-49-8901einnlqtke, seasonal, injectableMason Johnson MD Work Phone: [facility] CenterKhprsmmfte55-89-9318Mcagyqaas, Seasonal, Quadrivalent, AdjuvantJason Johnson MD Work Phone: [facility] CenterOanyshkyix19-79-6946HQPK-EzG-1 (COVID-19) mRNA- 8484 vaccineMichael NILL [facility] CenterUfhmtcqp67-28-7263SYNB-XsL-0 (COVID-19) mRNA-1273 vaccineMichael NILL General Surgery Wxsvqnku65-41-6462xvbfgqmni, high dose seasonal, preservative-Genet Johnson MD Work Phone: [facility] CenterMrvrovuprf72-39-3507Kfddiorlg, injectable, Madin Irena Canine Kidney, preservative free, quadrivalentMason Johnson MD Work Phone: NOFreeman Health SystemOixeqqbupi86-72-0740lduqymohx, seasonal, injectable, preservative Genet Johnson MD Work Phone: noFreeman Health SystemFeldxfxixn14-77-5564vpfbs stzeepzvg-Y3Z6-45, preservative-free, injectableMason Johnson MD Work Phone: [facility] Payers DatePayer CategoryPayerPolicy [id number]-pay2025Medicare (Managed Care)[id number] [id number]/MEDICAL GENERIC MEDICAL GENERIC [id number] 2022- Present [phone] [place] [address] Dr Acuna [address] [place] [address] [id number] Health [id number] 2013Medicare [id number] [id number] 1960 Private Health [id number] 2.16.840.1.143195.3.57[id number] 2.16.840.1.640744.3.57[id number] 2.16.840.1.462251.3.579.[id number] 2.16.840.1.423988.3.579.[id number] 2.16840.1.208577.3.579.2.[id number] 2.16.840.1.323243.3.579.[id number] 2.16840.1.008701.3.579.2.24472-59-5659Dvxsogx4278971 2.16840.1.692598.3.579.2.56916-77-2793Gcaalji5124561 2.16840.1.340177.3.579.2.7[id number] 2.16840.1.910955.3.579.2.959806-07-5289Kwxpdpf97885631 2.16840.1.053096.3.579.2.751504-84-5647Hzgvwiw28848512 2.16840.1.047005.3.579.2.795105-94-6933Jogziae90461327 2.16840.1.004191.3.579.2.414152-89-1735Mfjmuva96911228 2.16840.1.175258.3.579.2.675540-07-0144Otedrbl19454878 2.16840.1.052153.3.57[id number] 2.16840.1.025776.3.579.2.682740-92-7521Lqyijfl40762513 2.16.840.1.262581.3.579.2.366154-17-0001Clytare40535156 2.16.840.1.307602.3.579.2.786319-07-2992Elotmko06241215 2.16.840.1.628302.3.579.2.400937-35-3134Edgtccg9506068 2.840.1.010712.3.579.2.194356-70-6935Fgatbdk4426926 2.16.840.1.704906.3.579.2.356346-48-5843Qqueieh2880967 2.16.840.1.961872.3.579.2.404948-60-3287Qiowglv1811150 2.840.1.414476.3.579.2.289490-38-0716Dbarlfs2386317 2.840.1.981595.3.579.2.254679-87-0456Ytqnrxs3117358 2.840.1.063559.3.579.2.577294-18-7225Zahzuqz1405301 2.840.1.886639.3.579.2.806371-71-7631Cqsmgyn7869875 2.840.1.083072.3.579.2.946670-62-7689Zntqyyd3245440 2.840.1.277596.3.579.2.000388-21-1818Dhnquic9174967 2.840.1.109416.3.579.2.6515Qzblrus82784255 2.840.1.439531.3.579.2.531 Social History DateTypeDetailFacilityStart: 06-13-2022 End: 68-99-9071Nfgtppy smoking statusNever smoked tobacco (finding)General Surgery [facility] CenterueStart: 26-68-9013Wjbvhap smoking statusNeverGeneral Surgery [facility] Hospitaltart: 02-06-2023 End: 36-49-0736Ooh [facility]igned At [facility]: 04-30-2013 End: 72-77-8001Yoyqqeh use and exposureSmokeless tobacco non-userC[facility] Clinic Euclid Hospitaltart: 08-14-2022 End: 68-61-6029Pizvpsl intakeCurrent drinker of alcohol (finding)[facility]tart: 22-15-4443Okaptsn Commentdaily 3 beersCleveland [facility]pe[facility] Hospitaltart: 21-00-5906Tjb Assigned At [facility] CountyNot on fileC[facility] Clinic Eucl[facility] Hospitaltart: 02-06-2023 End: 64-48-8738Npwlkqu of Social functionCleveland Clinic Euclid Hospitaltart: 85-96-0133Eyd Assigned At [facility] HospitalWithin the last year, have you been [...] before (I/we) got money to buy more.Never trueNOPR HealthcareStart: 01-20-2023 Alcohol Commentcaffeine intake: 1-2 cups per dayNOPR HealthcareTobacco smoking status NHISUnknown if ever smokedPremier Health Work Phone: SexMale (finding)[facility] NEGATED: Highlighted rowStart: NINFHistory of tobacco usePassive smokerKettering Health Springfield Functional Status QjzbNdnuzpusbzTuqjkbNnimnrej58-45-8624Jnzsqxz Health Questionnaire 2 item (PHQ- 2) [Reported][facility] Mojbubfmob65-83-2873Jpexqoy Health Questionnaire 2 item (PHQ- 2) [Reported][facility] Fzfsrwqirl22-04-5277Ncjwerr Health Questionnaire 2 item (PHQ- 2) [Reported][facility] Hcyrlijfhb60-58-1516Frwyaih Health Questionnaire 2 item (PHQ- 2) [Reported][facility] CenterGyqbvrzduw45-80-5335Hrmszqycwd StatusN/AGeneral Surgery Gppzjmig18-07-4156Dvc you deaf, or do you have serious difficulty hearingNo 04/29/2014 11:20 AM [facility]asmyn Han [facility] HospitalRrrywm16-94-4945Rmg you blind, or do you have serious difficulty seeing, even when wearing glassesNo 04/29/2014 11:20 AM Jasmyn Han [facility]10-23-2014Do you have serious difficulty walking or climbing stairsNo 04/29/2014 11:20 AM Jasmyn Han No [facility] SpringfieldEbswww70-90-4720Ve you have difficulty dressing or bathingNo 04/29/2014 11:20 AM Jasmyn Han [facility] HospitalYgeoha09-81-8525Kijfkmo of a physical, mental, or emotional condition, do you have difficulty doing errands alone such as visiting a physician's office or shoppingNo 04/29/2014 11:20 AM Jasmyn Garcia [facility] Mental Status ZdpcXufsckeqrlMfslumJytzhxrb77-53-0166Jgwrbzk of a physical, mental, or emotional condition, do you have serious difficulty concentrating, remembering, or making decisionsNo 04/29/2014 11:20 AM Jasmyn Garcia [facility] Clinical Notes 04-28-2015 to 05-13-2025 Note Date & LrxrTopjBelcskmy48-63-5598 Telephone encounter Note* Telephone Encounter - Rafael Moore - 05/13/2025 2:39 PM EST Manish stopped in. He stated he went in for a stress test but they stopped it and sent him to the ER. In the Er they put him on Elaquist 5mg bid. He wants to know if Dr. Johnson is going to continue that medication because he will be out of what the ER gave him soon. Please advise [facility] CenterXvxdjwaiis14-20-8973 Miscellaneous Notes* Telephone Encounter - Rafael Moore - 05/13/2025 2:39 PM EST Manish stopped in. He stated he went in for a stress test but they stopped it and sent him to the ER. In the Er they put him on Elaquist 5mg bid. He wants to know if Dr. Johnson is going to continue that medication because he will be out of what the ER gave him soon. Please advise documented in this encounterJohn J. Pershing VA Medical [id number] NoteUT Electrophysiology Consult Note [place] [facility] - [facility] Reason for visit: Atrial flutter HPI: Manish Root is a 79 y.o. 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 In the left eye was sent to the ER and subsequently started on Eliquis and also placed on Toprol-XL 25. He was subsequently referred to me for further evaluation of his underlying problem. Patient has not had any recent cardiac workup in the past. Given that he had been doing very well he has not had any follow-up since the last time he had outpatient visits with Dr. Basilio here at [place]. He states that he is fairly active and is not symptom limited except for difficulty walking and leading to his orthopedic issues PMH: Medical History[1] PSH: Surgical History[2] SH: Social Drivers of Health Tobacco Use: Low Risk (05/11/2025) Patient History Smoking Tobacco Use: Never Smokeless Tobacco Use: Never Passive Exposure: Not on file Alcohol Use: Unknown (07/29/2023) Received from [facility] AUDIT-C Frequency of Alcohol Consumption: 4 or more times a week Average Number of Drinks: Not on file Frequency of Binge Drinking: Not on file Financial Resource Strain: High Risk (06/10/2023) Received from [facility] Overall Financial Resource Strain (CARDIA) Difficulty of Paying Living Expenses: Very hard Food Insecurity: No Food Insecurity (06/10/2023) Received from [facility] Hunger Vital Sign Worried About Running Out of Food in the Last Year: Never true Ran Out of Food in the Last Year: Never true Transportation Needs: No Transportation Needs (06/10/2023) Received from [facility] PRAPARE - Transportation Lack of Transportation (Medical): No Lack of Transportation (Non-Medical): No Physical Activity: Sufficiently Active (06/10/2023) Received from [facility] Exercise Vital Sign Days of Exercise per Week: 7 days Minutes of Exercise per Session: 30 min Stress: No Stress Concern Present (06/10/2023) Received from [facility] [employer] [place] of Occupational Health - Occupational Stress Questionnaire Feeling of Stress : Not at all Social Connections: Moderately Isolated (06/10/2023) Received from [facility] Social Connection and Isolation Panel [NHANES] Frequency of Communication with Friends and Family: Three times a week Frequency of Social Gatherings with Friends and Family: Three times a week Attends Hinduism Services: Never Active Member of Clubs or Organizations: No Attends Club or Organization Meetings: Never Marital Status: Intimate Partner Violence: Not At Risk (06/10/2023) Received from [facility] Humiliation, Afraid, Rape, and Kick questionnaire Fear of Current or Ex-Partner: No Emotionally Abused: No Physically Abused: No Sexually Abused: No Depression: Not at risk (12/28/2024) Received from [facility] PHQ-2 Patient Health Questionnaire-2 Score: 0 Housing Stability: Unknown (06/10/2023) Received from [facility] Housing Stability Vital Sign Unable to Pay [...] kg (194 lb) SpO2 96% BMI 30.38 kg/m??? Smoking Status Never BSA 2.04 m??? Meds: Medications Ordered Prior to Encounter[4] ROS: [...] pain+, no back pain, no swelling in the extremities Integumentary Skin no rash, no ulcer, no varicosities, no discoloration, no pruritus Neurologic Neurologic: no loss of consciousness, no weakness, no numbness, no seizures, no dizziness, no headaches Psychiatric Psych: no depression, feeling safe in relationship, no alcohol abuse, Hematologic/Lymphatic Hematologic/Lymphatic no swollen glands, no bruising P (more content not included)...[facility]10-30-2025 NoteHNO ID: [id number] Author: Yordan FELIZ MD Service: ? Author Type: Physician Type: Progress Notes Filed: 05/13/2025 09:30 Note Text: Radiation Oncology - Follow Up [...] without significant limitations. LABORATORY: Latest Reference Range AND Units 04/29/25 09:13 Sodium 136 - 144 [...] 8 - 15 mmol/L 13 eGFR >=60 mL/min/1.73m? 70 TSH 0.270 - 4.200 mIU/L 2.760 [...] Lymph 1.00 - 4.00 k/uL 0.58 (L) [place]% % 7.8 Abs [place] <0.87 k/uL 0.46 Eosin% % 1.4 Abs Eosin <0.46 k/uL 0.08 Baso% % 0.9 Abs Baso <0.11 k/uL 0.05 Immature Gran % % 0.9 IMMATURE GRANS (ABS) <0.10 k/uL 0.05 NRBC /100 WBC 0.0 Absolute nRBC <0.01 k/uL <0.01 (H): Data is abnormally high (L): Data is abnormally low Latest Reference Range AND Units 10/23/23 10:52 [...] Date Value 04/29/2025 255 Latest Reference Range AND Units 10/16/23 10:46 [...] Lymph 1.00 - 4.00 k/uL 0.48 (L) [place]% % 10.4 Abs [place] <0.87 k/uL 0.32 Eosin% % 1.6 Abs [...] or enlarging nodules are seen. 2. Stable m (more content not included)...[facility]10-30-2025 NoteHNO ID: [id number] Author: JOHN ENGLAND MD Service: ? Author Type: Physician Type: Progress Notes Filed: 05/06/2025 19:37 Note Text: NAME: Dk Manish [facility] NO.: [id number] DATE OF SERVICE: May 06, 2025 (Jacquelyn) Some elements in this clinic note that are critical to medical decision making have been carefully reviewed and included from a prior clinic note dated: November 04, 2024 (Jacquelyn). Referring Provider: Dr. Татьяна Feliz Additional Clinicians [...] Reverse Chronological Order 04/29/2025 - CT Neck AND Chest: Neck: * Stable posttreatment changes as detailed. No significant other enhancing lesion suggest recurrent or residual disease. * No enlarged lymph node in the neck, by CT size criteria Chest: * Stable CT of the chest. No findings to suggest new intrathoracic metastatic disease. * No evidence of bulky intrathoracic lymphadenopathy. 10/28/2024 - CT Neck AND Chest: Neck: [...] under anesthesia/panendoscopy. Findings included a friable exophytic (more content not included)...[facility] 04-30-2025 History of Present illness Narrative* Mason Johnson [...] 0.70 - 1.30 mg/dL Final [facility] EGFR-AF QATARI 04/29/2025 >60 >=60 mL/min/1.73m 2 Final [facility] EGFR-NON AF QATARI 04/29/2025 59 (L) >=60 mL/min/1.73m 2 Final [...] INDICATED 04/29/2025 NO Final URINE CULTURE - FR 04/29/2025 Preliminary Value: Urine Culture - FR PEND Pending - Specimen sent to [facility]^Pending - Specimen sent to [facility] SEGMENTED NEUTROPHILS % MANUAL 04/29/2025 83.0 (H) [...] LDL-C. [place] GAN et al. TITI. 2013;310(19): 9168-1791 (http://education.[employer].Extenda-Dent/faq/MEK502) CHOL/HDLC RATIO 03/26/2025 2.8 <5.0 (calc) Final [...] outlined without changes. 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 - Asymptomatic but he is sedentary due to his hip. I do not have his Cardiac Cath report, it was done 10 years ago in [place]. He has not seen a Can Piler or had any cardiac evaluation in 10 [...] 2 weeks (on 05/14/2025). documented in this encounterJohn J. Pershing VA Medical [id number] NoteHNO ID: [id number] Author: JONATHAN PARTIDA RN Service: ? Author [...] Root DATE: April 29, 2025 TIME: 10:09 [facility]10-23-2025 NoteHNO ID: [id number] Author: RAFAEL ZURITA RT(R) Service: ? 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 Anesthesia: No PERIPHERAL IV DATA: Site assessment: Clean,Dry and Intact, Site disposition Discontinued SIGNED BY: Rafael Zurita, RT(R) April 29, 2025 10:02 [facility]10-22-2025 History of Present illness Narrative* Jr. [...] or the patient requires discharge to a snf facility, the patient may require to have additional inpatient hospitalstay days following the surgery. Physical therapy is contraindicated in this patient''s case because of the qqtn-ll-zbtg articulation of the patient's hip. Questions answered in laymen terms at the bedside. The diagnosis, home exercise plan and any ongoing restrictions/ recommendations reviewed. If unable to be reached in office, I recommend evaluation at nearest Emergency Room if any symptoms worsened or new symptoms develop for requiring urgent evaluation. [1] Allergies Allergen Reactions Statins GI intolerance documented in this encounterJohn J. Pershing [facility] Medical [id number] History of Present illness Narrative* Serene Morales [...] GERD (gastroesophageal reflux disease) 01/15/2023 History of FL (myocardial infarction) 01/15/2023 HTN (hypertension) 01/15/2023 OJEDA [...] file prior to visit. documented in this encounterJohn J. Pershing VA Medical [id number] Telephone encounter Note* Telephone Encounter - Olive Brown - 04/19/2025 9:42 AM EDT [facility] 04/14/25 L Hip OA Has thought about it and would like to move forward with DOM Next available spot Please call patient [facility] [id number] Miscellaneous Notes* Telephone Encounter - Olive Brown - 04/19/2025 9:42 AM EDT [facility] 04/14/25 L Hip OA Has thought about it and would like to move forward with DOM Next available spot Please call patient documented in this encounterJohn J. Pershing VA Medical [id number] History of Present illness Narrative* Jr. Mechelle [...] with colostomy COLONOSCOPY LARYNGOSCOPY 07/31/2022 with biopsyLana SOCIAL HISTORY: Social History Occupational History Not [...] for requiring urgent evaluation. documented in this encounterJohn J. Pershing VA Medical [id number] History of Present illness Narrative* Mason Johnson [...] with colostomy COLONOSCOPY LARYNGOSCOPY 07/31/2022 with biopsy, [facility] Visit Vitals BP 132/74 Pulse 64 Ht [...] disease, without long-term current use of insulin ([facility]) - Lipid panel; Future - Microalbumin / creatinine, urine ratio; Future - Comprehensive metabolic panel; Future Moderate mixed hyperlipidemia not requiring statin therapy - Lipid panel; Future - Microalbumin / creatinine, urine ratio; Future - Comprehensive metabolic panel; Future Follow up in about 4 months (around 07/26/2025) for Routine F/U. documented in this encounterJohn J. Pershing VA Medical [id number] History of Present illness Narrative* Serene Morales [...] GERD (gastroesophageal reflux disease) 01/15/2023 History of FL (myocardial infarction) 01/15/2023 HTN (hypertension) 01/15/2023 OJEDA [...] Quarterly appts till 07/2026 documented in this encounterJohn J. Pershing VA Medical [id number] History of Present illness Narrative* Mason Johnson [...] LARYNGOSCOPY 07/31/2022 with biopsy, [facility] Visit Vitals Ht 5' 7 BMI 31.48 [...] No follow-ups on file. documented in this encounterJohn J. Pershing VA Medical [id number] History of Present illness Narrative* Mason Johnson [...] indicated. For additional information, please refer to http://education.[employer]/faq/EAG719 (This link is being provided for informational/ [...] polar distribution in the cytoplasm (e.g., anti-giantin, [id number]). Pattern is rare in Sjogren's syndrome, systemic lupus erythematosus (SLE), rheumatoid arthritis, mixed connective disease, granulomatosis with polyangiitis (GPA), idiopathic cerebellar ataxia, paraneoplastic cerebellar degeneration, and viral infections. AC-22: Polar/Golgi-like International Consensus on RAFAEL Patterns (https://doi.org/10.1515/xsty-4365-6154) Clinisync Result Encounter on 12/02/2024 Component Date [...] 01/04/2025) for Test/Lab Review. documented in this encounterJohn J. Pershing VA Medical [id number] History of Present illness Narrative* Mason Johnson [...] disease, without long-term current use of insulin ([facility]) - FSBS log shows good control, most recent A1C is at or near goal. Continue current treatment plan as previously outlined without changes. Follow up in about 2 weeks (around 12/23/2024) for As Previously Scheduled, Test/Lab Review. documented in this encounterJohn J. Pershing VA Medical [id number] NoteHNO ID: [id number] Author: Yordan FELIZ MD Service: ? Author [...] Lymph 1.00 - 4.00 k/uL 0.48 (L) [place]% % 10.4 Abs [place] <0.87 k/uL 0.32 Eosin% % 1.6 Abs [...] flush line and de-a (more content not included)...[facility]04-30-2025 History of Present illness Narrative* Yordan Feliz [...] Lymph 1.00 - 4.00 k/uL 0.48 (L) [place]% % 10.4 Abs [place] <0.87 k/uL 0.32 Eosin% % 1.6 Abs [...] Yordan Feliz MD cc: Dr. Shaikh Drake [address] [place] [address] documented in this encounterK[facility] History of Present illness Narrative* John England MD - 11/04/2024 11:20 AM EDT Images from the original note were not included. NAME: Manish Root [facility] NO.: [id number] DATE OF SERVICE: November 04, 2024 (Jacquelyn) [...] Ca Stage 3 - 2/5 LN + Western regimen on protocol Updated Visit, November 04, [...] as his is better. He's originally from [place]. Updated Visit, May 06, 2024: Manish returns [...] which included preparing to see the patient, innp-jg-jbsg patient care, completing clinical documentation, performing a medically appropriate examination, counseling and educating the patient/family/caregiver, ordering medications, tests, or p rocedures, independently interpreting results (not separately reported), communicating results to the patient/family/caregiver, and care coordination (not separately reported). John England MD, CPE Hematology and Oncology Services Provided at: [place], [place] CC: Dr. Yordan Morales documented in this encounterKettering [facility]04-30-2025 NoteHNO ID: [id number] Author: JOHN ENGLAND MD Service: ? Author Type: Physician Type: Progress Notes Filed: 11/04/2024 19:00 Note Text: NAME: Dk Manish [facility] NO.: [id number] DATE OF SERVICE: November 04, 2024 (Jacquelyn) [...] Ca Stage 3 - 2/5 LN + Western regimen on protocol Updated Visit, November 04, [...] as his is better. He's originally from [place]. Updated Visit, May 06, 2024: Manish returns with his Jahaira (she has a pinched nerve that has locked up her shoulder) His scans are negative. He's doing very well. Updated Visit, October 23, 2023: Manish returns today with Jahaira. We discussed he recent CT scans - both appear stable. (more content not included)...[facility]04-30-2025 Instructions* Patient Instructions* John England MD - 11/04/2024 11:[address] Neck and Chest in 6 months Labs same day RTC 1 week after to review documented in this encounterKettering [facility]04-23-2025 NoteHNO ID: [id number] Author: RAFAEL ZURITA RT(R) Service: ? Author [...] PATIENT PRESENTS WITH AN IMPLANTABLE OR ATTACHED BOAT CANVAS MAKER AND INSTALLER: No RADIOLOGY DEPARTMENT: CT; Exam(s) Completed: Chest and Neck PERIPHERAL IV DATA: Site assessment: Clean,Dry and Intact, Site disposition Discontinued SIGNED BY: RT Perlita(R) October 28, 2024 9:41 [facility]04-23-2025 NoteHNO ID: [id number] Author: GISELA VILLAVICENCIO RN Service: ? Author [...] Root DATE: October 28, 2024 TIME: 10:49 [facility]04-21-2025 History of Present illness Narrative* Mason [...] with colostomy COLONOSCOPY LARYNGOSCOPY 07/31/2022 with biopsy, [place] Visit Vitals BP 130/74 Pulse 52 Ht [...] Routine F/U, DM- A1C. documented in this [facility]04-15-2025 History of Present illness Narrative* Serene Morales MD - 10/20/2024 8:00 AM EDT Subjective Patient ID: Manish Root is a 78 y.o. male who presents for Cancer (3 month check ) Family History Adopted: Yes Problem Relation Name Age of Onset No Known Problems Mother No Known Problems Father Active Ambulatory Problems Diagnosis Date Noted Cancer of base of tongue ([facility]) 12/15/2022 Metastatic cancer to cervical lymph nodes ([facility]) 12/15/2022 Arteriosclerotic cardiovascular disease ([facility]) 01/15/2023 Colon cancer ([facility]) 11/19/2012 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, without long-term current use of insulin ([facility]) 01/15/2023 GERD (gastroesophageal reflux disease) 01/15/2023 History of FL (myocardial infarction) ([facility]) 01/15/2023 HTN (hypertension) ([facility]) 01/15/2023 OJEDA (nonalcoholic steatohepatitis) 01/15/2023 Stage [...] Quarterly appts till 07/2026 documented in this encounterJohn J. Pershing VA Medical [id number] History of Present illness Narrative* Msaon Johnson MD - 10/12/2024 3:45 PM EDT [...] med changes, Test/Lab Review. documented in this encounterJohn J. Pershing VA Medical [id number] History of Present illness Narrative* Barry Stevens, [employer] [employer] - 09/17/2024 10:35 AM EDT Lesions: Location: [...] limited to risks of scarring, darker or workers compensation claims analyst pigmentary changes, recurrence, incomplete removal and [...] 3. Seborrheic keratosis, inflamed Mid Parietal Scalp Pleak and brown stuck on verrucous scaly papule [...] limited to risks of scarring, darker or workers compensation claims analyst pigmentary changes, recurrence, incomplete removal and [...] Next Visit: as scheduled documented in this encounterJohn J. Pershing VA Medical [id number] History of Present illness Narrative* Mason Johnson [...] this visit: Routine general medical examination at [facility] care facility ACP (advance care planning) Hyperlipidemia, [...] Services Required Referred to Provider: Barry Stevens APRN-[employer] Requested Specialty: Dermatology Number of Visits Requested: 1 POCT Glycated hemoglobin, total Electronically signed by Mason Johnson MD on August 31, 2024 documented in this encounterJohn J. Pershing VA Medical [id number] History of Present illness Narrative* Serene Morales [...] lymph nodes (CMS/HCC) 12/15/2022 Arteriosclerotic cardiovascular disease ([facility]/HCC) 01/15/2023 Colon cancer ([facility]/HCC) 11/19/2012 DM II (diabetes mellitus, type II), controlled (CMS/HCC) 01/15/2023 GERD (gastroesophageal reflux disease) 01/15/2023 History of FL (myocardial infarction) ([facility]/HCC) 01/15/2023 HTN (hypertension) ([facility]/HCC) 01/15/2023 OJEDA (nonalcoholic steatohepatitis) 01/15/2023 Stage 2 chronic kidney disease 2022 Facial lesion 01/21/2023 CAD (coronary artery disease) ([facility]/HCC) 06/10/2023 Chemotherapy-induced neutropenia ([facility]/HCC) 10/19/2022 Type 2 diabetes mellitus without complications ([facility]/HCC) 06/10/2023 Diastasis recti 01/15/2023 Encounter for Medicare annual wellness exam 06/10/2023 Neck muscle spasm 11/20/2023 Throat cancer ([facility]/HCC) 12/04/2023 Hyperlipidemia (CMS/HCC) 12/16/2023 Resolved Ambulatory Problems Diagnosis Date Noted Overweight 12/15/2022 Acute pain of right shoulder 12/15/2022 Basal cell carcinoma (BCC) of face 12/15/2022 Chemotherapy-induced neutropenia ([facility]/HCC) 10/19/2022 Diastasis recti 01/15/2023 Disorder of prostate [...] today. Start quarterly appts documented in this [facility]01-08-2025 History of Present illness Narrative* Mannie Rodriguez NP - 07/15/2024 3:45 PM EST documented in this [facility]12-10-2024 History of Present illness Narrative* [...] GERD (gastroesophageal reflux disease) 01/15/2023 History of FL (myocardial infarction) (CMS/HCC) 01/15/2023 HTN (hypertension) (CMS/HCC) [...] quarterly appts next visit documented in this encounterJohn J. Pershing VA Medical [id number] History of Present illness Narrative* Barry Stevens, YENY[employer] - 05/26/2024 10:20 AM EST Lesions: Location: [...] Actinic keratosis (6) Left Eyebrow, Left Superior [place], Left Zygomatic Area, Right Forehead, Right Scaphoid Fossa, RightSuperior [place]iz Erythematous scaly papules Patient was counseled regarding [...] limited to risks of scarring, darker or workers compensation claims analyst pigmentary changes, recurrence, incomplete removal and [...] skin lesion - Left Eyebrow, Left [place], Left Zygomatic Area, Right Forehead, Right Scaphoid Fossa, Right [place] Next Visit: 1 year, skin check documented in this encounterJohn J. Pershing VA Medical [id number] History of Present illness Narrative* Serene Morales [...] GERD (gastroesophageal reflux disease) 01/15/2023 History of FL (myocardial infarction) (CMS/HCC) 01/15/2023 HTN (hypertension) (CMS/HCC) [...] today. Monthly till July documented in this encounterJohn J. Pershing VA Medical [id number] Instructions* Patient Instructions* John England MD - 05/06/2024 3:[address] Neck and Chest in 6 months Labs same day RTC 1 week after to review documented in this encounterK[facility]10-30-2024 History of Present illness Narrative* John England MD - 05/06/2024 3:04 PM EDT Images from the original note were not included. NAME: Manish Root [facility] NO.: [id number] DATE OF SERVICE: May 06, 2024 (Jacquelyn) [...] Ca Stage 3 - 2/5 LN + Western regimen on protocol Updated Visit, May 06, [...] which included preparing to see the patient, ncbk-uu-[id number] patient care, completing clinical documentation, performing a medically appropriate examination, counseling and educating the patient/family/caregiver, ordering medications, tests, or p rocedures, independently interpreting results (not separately reported), communicating results to the patient/family/caregiver, and care coordination (not separately reported). John England MD, CPE Hematology and Oncology Services Provided at: [place], [place] CC: Dr. Yordan Morales documented in this encounterKet[facility]10-30-2024 History of Present illness Narrative* Yordan Feliz [...] Lymph 1.00 - 4.00 k/uL 0.48 (L) [place]% % 10.4 Abs [place] <0.87 k/uL 0.32 Eosin% % 1.6 Abs [...] Feliz MD cc: Dr. Shaikh Vidal Estrada [address] [place] [address] documented in this encounterKettering [facility]10-24-2024 History of Present illness Narrative* Mason Johnson MD - 04/30/2024 9:30 AM EDT Images from the original note were not included. HPI Establish Care Additional comments: Previous pcp dr vidal Loaiza oncology twice yearly [facility] Last edited by Niki Alvarez LPN on 04/30/2024 9:03 AM. Subjective Patient ID: Manish Root is a 78 y.o. male who presents for Establish Care (Previous pcp dr drake/Josse oncology twice yearly [facility]), Diabetes, and Hypertension. Diabetes Mellitus [...] Date Value Ref Range Status [facility] IRON SERPL-NC 04/23/2024 78 41 - 186 ug/dL Final [facility] TIBC [facility] 04/23/2024 300 232 - 386 ug/dL Final [facility] IRON/TIBC SERPL-SRTO 04/23/2024 26.0 15.0 - 57.0 % Final [facility] VIT B12 [facility]-NC 04/23/2024 349 232 - 1,245 pg/mL Final [facility] FERRITIN SERPL-NC 04/23/2024 158.0 30.3 - 565.7 ng/mL Final [facility] 04/23/2024 12.1 >4.7 ng/mL Final [facility]inis[facility] Result Encounter on 04/23/2024 Component Date Value Ref Range Status [facility] WBC # BLD AUTO 04/23/2024 3.46 (L) 3.70 - 11.00 k/uL Final [facility] RBC # D AUTO 04/23/2024 4.17 (L) 4.20 - 6.00 m/uL Final [facility] HGB D-NC 04/23/2024 13.3 13.0 - 17.0 g/dL Final [facility] HCT VFR D AUTO 04/23/2024 38.4 (L) 39.0 - 51.0 [...] 74 - 99 mg/dL Final Comment: The [place] Diabetes Association (ADA) provides guidance for cutoff [...] Standards of Medical Care in Diabetes 2016, [place] [employer] Association. Diabetes Care. 2016.39(Suppl 1). [facility] [...] all orders for this visit: Primary hypertension ([facility]) - Controlled. Controlled type 2 diabetes mellitus without complication, without long-term current use of insulin ([facility]) - POCT Glycated hemoglobin, total today - 7.4%. No changes in therapy. 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 Follow up in about 4 months (around 08/31/2024) for Routine F/U. documented in this encounterJohn J. Pershing VA Medical [id number] History of Present illness Narrative* Rafael Zurita [...] PATIENT PRESENTS WITH AN IMPLANTABLE OR ATTACHED BOAT CANVAS MAKER AND INSTALLER: No RADIOLOGY DEPARTMENT: CT; Exam(s) Completed: Chest and Neck PERIPHERAL IV DATA: Site assessment: Clean,Dry and Intact, Site disposition Discontinued SIGNED BY: RT Perlita(R) April 23, 2024 9:35 AM documented in this encounterKettering Health [facility]10-15-2024 History of Present illness Narrative* Serene Morales [...] 12/15/2022 Metastatic cancer to cervical lymph nodes ([facility]/HCC) 12/15/2022 Arteriosclerotic cardiovascular disease ([facility]/HCC) 01/15/2023 Colon cancer ([facility]/HCC) 11/19/2012 DM II (diabetes mellitus, type II), controlled (CMS/HCC) 01/15/2023 GERD (gastroesophageal reflux disease) 01/15/2023 History of FL (myocardial infarction) ([facility]/HCC) 01/15/2023 HTN (hypertension) (CMS/HCC) 01/15/2023 OJEDA (nonalcoholic steatohepatitis) 01/15/2023 Stage 2 chronic kidney disease 2022 Facial lesion 01/21/2023 CAD (coronary artery disease) ([facility]/HCC) 06/10/2023 Chemotherapy-induced neutropenia ([facility]/HCC) 10/19/2022 Type 2 diabetes mellitus without complications ([facility]/HCC) 06/10/2023 Diastasis recti 01/15/2023 Encounter for Medicare annual wellness exam 06/10/2023 Neck muscle spasm 11/20/2023 Throat cancer (CMS/HCC) 12/04/2023 Hyperlipidemia (CMS/HCC) 12/16/2023 Resolved Ambulatory Problems Diagnosis Date Noted Overweight 12/15/2022 Acute pain of right shoulder 12/15/2022 Basal cell carcinoma (BCC) of face 12/15/2022 Chemotherapy-induced neutropenia ([facility]/HCC) 10/19/2022 Diastasis recti 01/15/2023 Disorder of prostate [...] Monthly appt till July documented in this encounterJohn J. Pershing VA Medical [id number] History of Present illness Narrative* Serene Morales [...] GERD (gastroesophageal reflux disease) 01/15/2023 History of FL (myocardial infarction) (CMS/HCC) 01/15/2023 HTN (hypertension) (CMS/HCC) [...] Monthly appts till July documented in this encounterJohn J. Pershing VA Medical [id number] History of Present illness Narrative* Serene Morales [...] GERD (gastroesophageal reflux disease) 01/15/2023 History of FL (myocardial infarction) (CMS/HCC) 01/15/2023 HTN (hypertension) (CMS/HCC) [...] Monthly appts till July documented in this encounterJohn J. Pershing VA Medical [id number] History of Present illness Narrative* Yordan Feliz [...] Lymph 1.00 - 4.00 k/uL 0.48 (L) [place]% % 10.4 Abs [place] <0.87 k/uL 0.32 Eosin% % 1.6 Abs [...] Feliz MD cc: Dr. Shaikh Vidal Estrada [address] [place] [address] documented in this encounterKettering Health Springfield04-17-2024 Instructions* Patient Instructions* Kelli Merchant - 10/23/2023 11:[address] Neck and Chest in 6 months Labs same day, include anemia workup RTC 1 week after to review documented in this encounterKettering Health Springfield04-17-2024 History of Present illness Narrative* John England MD - 10/23/2023 10:45 AM EDT Images from the original note were not included. NAME: Dk Manish [facility] NO.: [id number] DATE OF SERVICE: October 23, 2023 (Jacquelyn) [...] Ca Stage 3 - 2/5 LN + Western regimen on protocol Updated Visit, October 23, [...] which included preparing to see the patient, rtcf-[id number] patient care, completing clinical documentation, performing a medically appropriate examination, counseling and educating the patient/family/caregiver, ordering medications, tests, or p rocedures, independently interpreting results (not separately reported), communicating results to the patient/family/caregiver, and care coordination (not separately reported). John England MD, CPE Hematology and Oncology Services Provided at: [place], [place] Scribe Attestation: This note was scribed [...] CC: Dr. Yordan Morales documented in this encounterKettering Health Springfield04-10-2024 Miscellaneous Notes* Telephone Encounter - Rafael Bob RN - 10/16/2023 1:14 PM EDT Pt had labs drawn today. Requests that the results be faxed to his PCP, Dr Drake. Results of CBC and CMP faxed to [phone]. Rafael Bob RN documented in this encounterKettering Health Springfield04-10-2024 History of Present illness Narrative* Rafael Zurita, RT(R) - 10/16/2023 10:45 AM EDT Radiology [...] PATIENT PRESENTS WITH AN IMPLANTABLE OR ATTACHED BOAT CANVAS MAKER AND INSTALLER: No RADIOLOGY DEPARTMENT: CT; Exam(s) Completed: Chest and Neck PERIPHERAL IV DATA: Site assessment: Clean,Dry and Intact, Site disposition Discontinued SIGNED BY: RT Perlita(R) October 16, 2023 11:34 AM documented in this encounterKettering Health Springfield12-06-2023 History of Present illness Narrative* Gisela Villavicencio [...] 12, 2023 8:18 AM documented in this encounterKettering Health Springfield2023 History of Present illness Narrative* Yordan Feliz [...] Yordan Feliz MD cc: Dr. Shaikh Drake [address] [place] [address] documented in this encounterKettering Health Springfield09-13-2023 Instructions* Patient Instructions* John England MD - 03/20/2023 1:[address] Chest in 3 months Labs same day RTC 1 week after to review. documented in this encounterKettering Health Springfield09-13-2023 History of Present illness Narrative* John England MD - 03/20/2023 1:15 PM EDT Images from the original note were not included. NAME: Root, [facility] NO.: [id number] DATE OF SERVICE: March 20, 2023 (Abamansc) Some elements in this clinic note that [...] Ca Stage 3 - 2/5 LN + Western regimen on protocol Updated Visit, March 20, [...] which included preparing to see the patient, buxn-qu-lfbu patient care, completing clinical documentation, performing a medically appropriate examination, counseling and educating the patient/family/caregiver, ordering medications, tests, or p rocedures, independently interpreting results (not separately reported), communicating results to the patient/family/caregiver, and care coordination (not separately reported). John England MD, CPE Hematology and Oncology Services Provided at: [place], [place] CC: Dr. Yordan Morales documented in this encounterKettering Health Springfield09-07-2023 History of Present illness Narrative* Jonathan Partida [...] 14, 2023 1:52 PM documented in this encounterKettering Health [facility]08-02-2023 Instructions* Patient Instructions* John England MD - 02/06/2023 12:[address] Chest in 5 weeks RTC 6 weeks to review please documented in this encounterKettering Health Springfield08-02-2023 History of Present illness Narrative* Yordan Feliz [...] Yordan Feliz MD cc: Dr. Shaikh Vidal Estrdaa [address] [place] [address] documented in this encounterKettering Health Springfield08-02-2023 History of Present illness Narrative* John England MD - 02/06/2023 11:39 AM EDT Images from the original note were not included. NAME: Manish Root [facility] NO.: [id number] DATE OF SERVICE: February 06, 2023 (Jacquelyn) [...] Ca Stage 3 - 2/5 LN + Western regimen on protocol Updated Visit, February 06, [...] which included preparing to see the patient, ruoh-dg-kijc patient care, completing clinical documentation, performing a medically appropriate examination, counseling and educating the patient/family/caregiver, ordering medications, tests, or p rocedures, communicating with other HCPs (not separately reported), independently interpreting results (not separately reported), communicating results to the patient/family/caregiver, and care coordination (not separately reported). John England MD, CPE Hematology and Oncology Services Provided at: [place], [place] CC: Dr. Yordan Morales documented in this encounterKettering Health Springfield08-02-2023 Nurse Note* Lala Pitt MA - 02/06/2023 11:31 AM EDT Patient has easy bruising more so on arms, voice is always changing and has a lot of phlegm. Lala Hooper MA documented in this encounterKettering Health Springfield07-25-2023 History of Present illness Narrative* Jonathan Partida [...] found usingthis link: [email or web address]%20Nuclear%20Medicine%20Procedures.pdf SIGNATURE: RT Aron(R) PATIENT NAME: Manish Root DATE: January 29, 2023 TIME: 11:48 AM PAGER/CONTACT #: documented in this encounterKettering Health Springfield05-24-2023 History of Present illness Narrative* G Jeyson [...] by: Yordan Feliz MD cc: Mannie Nelson [facility] [place] [address] Natalie Cadena [address] [place] [address] [place] [address] documented in this encounterKettering Health Springfield05-03-2023 Instructions* Patient Instructions* John England MD - 11/07/2022 9:53 AM EDT Continue seeing Dr. Feliz and Dr. Morales. RTC in 12 -13 weeks (after PET is complete) PET per Dr. Feliz Coordinate return on same date as Dr. Feliz. Labs on day return documented in this encounterKettering Health Springfield05-03-2023 History of Present illness Narrative* John England MD - 11/07/2022 9:21 AM EDT Images from the original note were not included. NAME: Manish Root NO.: [id number] DATE OF SERVICE: November 07, 2022 (Jacquelyn) [...] Ca Stage 3 - 2/5 LN + Western regimen on protocol Updated Visit, November 07, [...] which included preparing to see the patient, jkvv-jm-hfkk patient care, completing clinical documentation, performing a medically appropriate examination, counseling and educating the patient/family/caregiver, ordering medications, tests, or p rocedures, and independently interpreting results (not separately reported). John Engladn MD, CPE Hematology and Oncology Services Provided at: [place], [place] CC: Dr. 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 NAME: Manish Root [facility] NO.: [id number] DATE OF SERVICE: October 31, 2022 (Surinder) [...] Ca Stage 3 - 2/5 LN + Western regimen on protocol Updated Visit, October 31, [...] Not Currently No family history on file. Nataile Cadena APRN.CNP Hematology and Oncology Services Provided at: [place], [place] CC: Dr. Yordan Morales I spent a total of 30 minutes on the date of the service which included preparing to see the patient, pssq-mj-uodg patient care, completing clinical documentation, obtaining and/or reviewing separately obtained history, performing a medically appropriate examination, counseling and educating the pat ient/family/caregiver, ordering medications, tests, or procedures, independently interpreting results (not separately reported), and communicating results to the patient/family/caregiver. documented in this encounterKettering Health [facility]04-26-2023 History of Present illness Narrative* Yordan Feliz [...] Feliz MD [place]: [place] [address] [place] [address] documented in this encounterKettering Health [facility]04-20-2023 History of Present illness Narrative* Natalie Cadnea APRN.[employer] - 10/25/2022 10:01 AM EDT Images from the original note were not included. NAME: Manish Root [facility] NO.: [id number] DATE OF SERVICE: October 25, 2022 (Surinder) [...] Ca Stage 3 - 2/5 LN + Western regimen on protocol Updated Visit, October 25, [...] APRN.CNP Hematology and Oncology Services Provided at: [place], [place] CC: Dr. Yordan Morales I spent a total of 30 minutes on the date of the service which included preparing to see the patient, nrxu-ny-bnss patient care, completing clinical documentation, obtaining and/or reviewing separately obtained history, performing a medically appropriate examination, counseling and educating the pat ient/family/caregiver, ordering medications, tests, or procedures, independently interpreting results (not separately reported), and communicating results to the patient/family/caregiver. documented in this encounterKettering Health [facility]04-17-2023 History of Present illness Narrative* Yordan Feliz MD - 10/22/2022 12:00 AM EDT [facility] Radiation Oncology Department RADIATION ONCOLOGY - [...] cc: Dr. Jacquelyn Morales documented in this encounterKettering Health [facility]04-14-2023 History of Past illness Narrative* ProblemNoted DateDiagnosed DateResolved DateChemotherapy-induced [id number] malignant neoplasm of colon documented as of this encounter (statuses as of 10/24/2023) [facility]04-14-2023 History of Present illness Narrative* Dee Gil [...] Gil MS, RDN, LD documented in this encounterKettering Health [facility]04-14-2023 Instructions* Patient Instructions* John England MD - 10/19/2022 10:25 AM EDT Ciproflox prophylaxis. Neupogen 480 mcg x 1 today Needs to hydrate. Labs next Saturday CBC, CMP, possible hydration Stay for results - see Natalie documented in this encounterKettering Health [facility]04-14-2023 History of Present illness Narrative* John England MD - 10/19/2022 10:05 AM EDT Images from the original note were not included. NAME: Kian Rootnon [facility] NO.: [id number] DATE OF SERVICE: October 19, 2022 (Jacquelyn) [...] Ca Stage 3 - 2/5 LN + Western regimen on protocol Updated Visit, October 19, [...] which included preparing to see the patient, eman-pl-nexj patient care, completing clinical documentation, obtaining and/or reviewing separately obtained history, counseling and educating the patient/family/caregiver, ordering medications, cliff ts, or procedures, and independently interpreting results (not separately reported). John England MD, CPE Hematology and Oncology Services Provided at: [place], [place] CC: Dr. Yordan Morales documented in this encounterKettering Health [facility]04-10-2023 History of Present illness Narrative* Yordan Feliz [...] discussed. Yordan Feliz MD documented in this encounterKettering Health Springfield04-04-2023 Miscellaneous Notes* Telephone Encounter - Diana García [...] recommendations? Diana García LPN documented in this encounterKettering Health Springfield04-03-2023 History of Present illness Narrative* G Jeyson [...] outlined. Yordan Feliz MD documented in this encounterKettering Health Springfield03-31-2023 History of Present illness Narrative* Dee Gil RD - 10/05/2022 10:45 AM EDT Oncology Nutrition Therapy Progress Note Attemped to see patient, however patient left after radiation treatment and did not stay for appointment with dietitian. Signed by: Dee Gil, , RDN, LD documented in this encounterKettering Health Springfield03-27-2023 History of Present illness Narrative* Natalie Cadena APRN.[employer] - 10/01/2022 11:26 AM EDT Images from the original note were not included. NAME: Manish Root [facility] NO.: [id number] DATE OF SERVICE: October 01, 2022 (Surinder) [...] Ca Stage 3 - 2/5 LN + Western regimen on protocol Updated Visit, October 01, [...] APRN.CNP Hematology and Oncology Services Provided at: [place], [place] CC: Dr. Yordan Morales I spent a total of 30 minutes on the date of the service which included preparing to see the patient, cccb-nq-khln patient care, completing clinical documentation, obtaining and/or reviewing separately obtained history, performing a medically appropriate examination, counseling and educating the pat ient/family/caregiver, ordering medications, tests, or procedures, independently interpreting results (not separately reported), and communicating results to the patient/family/caregiver. documented in this encounterKettering Health Springfield03-27-2023 History of Present illness Narrative* Yordan Feliz [...] outlined. Yordan Feliz MD documented in this encounterKettering Health Springfield03-20-2023 History of Present illness Narrative* Yordan Feliz [...] Continue radiation as outlined. documented in this encounterKettering Health Springfield03-17-2023 History of Present illness Narrative* Dee Gil [...] Dosing Weight: 84.8 kg Estimated kilocalorie needs: 3152-5271 kilocalories determined by 25-30 kcal/kg Estimated protein needs: 85-102 grams determined by 1.0-1.2 g/kg Current weight Estimated fluid needs: ~2474-3618 milliliters based on 1 mL per kcal [...] Gil MS, RDN, LD documented in this encounterKettering Health Springfield03-13-2023 History of Present illness Narrative* G Jeyson [...] Continue radiation as outlined. documented in this encounterKettering Health Springfield03-06-2023 History of Present illness Narrative* Yrodan Feliz MD - 09/10/2022 11:22 AM EST [...] Continue radiation as outlined. documented in this encounterKettering Health Springfield03-03-2023 Miscellaneous Notes* Telephone Encounter - ISH Waite - 09/07/2022 12:11 PM EST SOCIAL WORK FOLLOW UP NOTE: [facility] Date of service:09/07/22 Manish Root is being seen for a follow up social work visit. Today's visit includes: patient TOPICS ADDRESSED: community resources and [facility] PLAN: Assist with financial support applications and Continue follow up as needed F/U APPOINTMENT: PRN Assigned SW listed in Care Team tab: Yes Patient dropped off a partial completed intake form for the [facility]. Jeannette completed the medical section of the form and faxed it to Maren at the [facility]. JEANNETTE called Maren to verify that the fax was received. JEANNETTE called Patient to let him know that his application was received and he needs to call Maren to talk about next steps. JEANNETTE will remain available and will follow up as appropriate. CHARLIE Waite documented in this encounterKettering Health Springfield03-02-2023 Miscellaneous Notes* Telephone Encounter - Rafael Bob [...] protocol. Rafael Bob RN documented in this encounterKettering Health Springfield02-27-2023 History of Present illness Narrative* Nica Green [...] ordered. Araceli Anne RN documented in this encounterKettering Health Springfield02-27-2023 Instructions* Patient Instructions* John England MD - 09/03/2022 11:12 AM EST Start Cisplatin weekly to start with radiation Labs weekly please. RTC 1 week See Amina / Natalie Labs same day. documented in this encounterKettering Health Springfield02-27-2023 History of Present illness Narrative* John England MD - 09/03/2022 10:45 AM EST Images from the original note were not included. NAME: Manish Root [facility] NO.: [id number] DATE OF SERVICE: September 03, 2022 (Jacquelyn) [...] Ca Stage 3 - 2/5 LN + Western regimen on protocol Updated Visit, September 03, 2022: Manish returns with his Jahaira. Ready to start chemo + RT - RT started. Ready for cisplatin. Initial Visit, August 16, 2022: Manish Yi Root presents today Hematology and Oncology evaluation. [...] which included preparing to see the patient, osro-im-htpk patient care, completing clinical documentation, performing a medically appropriate examination, counseling and educating the patient/family/caregiver, ordering medications, tests, or p rocedures, communicating with other HCPs (not separately reported), independently interpreting results (not separately reported), and care coordination (not separately reported). John England MD, CPE Hematology and Oncology Services Provided at: [place], [place] CC: MD Serene Mcclendon MD documented in this encounterKettering Health Springfield02-27-2023 History of Present illness Narrative* Yordan Feliz [...] Continue radiation as prescribed. documented in this encounterKettering Health Springfield02-22-2023 Miscellaneous Notes* Telephone Encounter - Rafael Bob RN - 08/29/2022 12:52 PM EST Pt calls w/ questions pertaining to his upcoming treatment. Questions reviewed and answered. Pt denies any further questions at this time. Rafael Bob RN documented in this encounterKettering Health Springfield02-21-2023 Miscellaneous Notes* Telephone Encounter - Rafael Bob RN - 08/28/2022 5:17 PM EST Pt notified and verbalizes understanding. Rafael Bob RN * Telephone Encounter - John England MD - 08/28/2022 5:15 PM EST Pet is localized - no mets * Telephone Encounter - Rafael Bob RN - 08/28/2022 2:52 PM EST Pt calls again requesting PET results. Please advise. Rafael Sessler, RN * Telephone Encounter - Rafael Bob RN - 08/28/2022 10:35 AM EST Pt calls for yesterday's PET results. Please review and advise. Thanks! Rafael Bob RN documented in this encounterKettering Health Springfield02-20-2023 Miscellaneous Notes* Telephone Encounter - Rafael Bob RN - 08/27/2022 11:23 AM EST Pt had several questions pertaining to treatment while he was here today. Questions reviewed and answered in person. No additional questions noted. Appointment reminder provided to pt as well. Rafael Bob RN documented in this encounterKettering Health Springfield02-20-2023 History of Present illness Narrative* Barry Burnett [...] 2022 TIME: 9:46 AM * Rafael Zurita RT(R) - 08/27/2022 8:45 AM EST RADIOLOGY SERVICE PROGRESS NOTE SERVICE DATE: 08/27/2022 SERVICE TIME: 9:53 AM PATIENT IDENTITY VERIFICATION COMPLETED USING TWO (2) STANDARD IDENTIFIERS: Name and Date of confirmed by patient verbally POST EXAM PIV STATUS: Discontinued PROCEDURE TYPE: NM INJECT: PET/CT BODY SCAN. 7.9 mCi F18 FDG. No other medications given.. ADMINISTRATION TIME: 0942 PATIENT DISCHARGED TO: Ambulatory patient, left AR department area. A Diagnostic radioactive procedure has taken place, with no further precautions necessary other than routine body substance precautions. More information regarding radiation safety can be found usingthis link: [email or web address] SIGNATURE: TOM Bhat) PATIENT NAME: Manish Root DATE: August 27, 2022 TIME: 9:53 AM PAGER/CONTACT #: documented in this encounterKettering Health Springfield02-17-2023 Miscellaneous Notes* Telephone Encounter - Madonna Barnes [...] Thanks! Rafael Bob RN documented in this encounterKettering Health Springfield02-16-2023 History of Present illness Narrative* Yordan Feliz MD - 08/23/2022 12:00 AM EST MANISH ROOT [id number] 08/23/2022 [facility] Radiation Oncology Department SIMULATION NOTE DATE OF SIMULATION: 08/23/2022 THERAPIST: Vinita Calderon MACHINE: NaPopravku DIAGNOSIS: Malignant neoplasm of base of [id number] AREA: H&N CONTRAST: IV Consent in Epic: [...] / NRS 1:21 AM documented in this encounterKettering Health Springfield02-16-2023 History of Present illness Narrative* Yordan Feliz MD - 08/23/2022 12:00 AM EST MANISH ROOT [id number] 08/23/2022 [facility] Department of Radiation Oncology Treatment Planning Note For reasons stated in the consult note, Manish Root is a candidate for radiation therapy. Based on review and interpretation of the relevant diagnostic studies together with the exam findings, Manish Root was simulated on 08/23/2022 at which time the target volume and/or requisite bertradn were del ineated, as indicated in the [...] Feliz M.D. 0:14 AM documented in this encounterKettering Health Springfield02-14-2023 Miscellaneous Notes* Telephone Encounter - Rafael Bob RN - 08/21/2022 3:16 PM EST Pt will be in on for education (Cisplatin). Scripts for antiemetics pended. Sincere: Please place chemotherapy orders. Thanks! Rafael oBb RN documented in [facility] encounter[facility] History of Present illness Narrative* Dee Gil, [...] Dosing Weight: 84.7 kg Estimated kilocalorie needs: 9760-4507 kilocalories determined by 25-30 kcal/kg Estimated protein needs: 85-102 grams determined by 1.0-1.2 g/kg Dosing weight Estimated fluid needs: ~1205-7797 milliliters based on 1 mL per kcal [...] Gil MS, RDN, LD documented in this encounter[facility]23 Instructions* Patient Instructions* John England MD - 08/16/2022 4:45 PM EST Will plan Cisplatin weekly to start with radiation Needs labs next visit at time of Sim. RTC prior to start Consent signed Needs education documented in this encounterK[facility]23 History of Present illness Narrative* John England MD - 08/16/2022 4:06 PM EST Images from the original note were not included. NAME: Manish Root [facility] NO.: [id number] DATE OF SERVICE: August 16, 2022 Referring [...] Ca Stage 3 - 2/5 LN + Western regimen on protocol Initial Visit, August 16, [...] which included preparing to see the patient, [id number] patient care, completing clinical documentation, performing a medically appropriate examination, counseling and educating the patient/family/caregiver, ordering medications, tests, or p rocedures, communicating with other HCPs (not separately reported), independently interpreting results (not separately reported), and care coordination (not separately reported). John England MD, CPE Hematology and Oncology Services Provided at: [place], [place] CC: MD Serene Mcclendon MD documented in this encounterK[facility]02-08-2023 Miscellaneous Notes* Telephone Encounter - Randal Brooks - 08/15/2022 1:14 PM EST Patient called back and said that he is scheduled at [facility] in [place], [place] 08/15/22. Dental evaluation form has been faxed to: [phone]. Randal Brooks * Telephone Encounter - Randal Brooks - 08/15/2022 11:47 AM EST Patient has been scheduled for dental appointment at [facility] on 09/04. Due to the nature of request, patient has also been placed on a cancellation list if a soon appointment becomes available. Called patient, [place] with detailed information. Randal Brooks * Telephone Encounter - Nela Antoine RN - 08/15/2022 10:10 AM EST E- order has been signed. Nela Antoine RN * Telephone Encounter - Nela Antoine RN - 08/15/2022 9:56 AM EST [facility] will need referral placed to see pt and schedule dental eval for clearance. Dr Dave- can you please sign in Dr Feliz's absence? Thank you Nela Antoine RN documented in this encounterK[facility]-07-[facility]23 History of Present illness Narrative* G Jeyson [...] voice changes that his family noticed at [facility], and he has had approximate 11 [...] the lung. Would recommend concurrent radiation with [place] based chemotherapy. Patient is eligible for current [...] Yordan Feliz MD cc: Mannie Nelson [address] [place] [address] Serene Morales MD [address] [place] [id number] documented in this encounterK[facility]02-07-2023 Nurse Note* Nela Antoine RN - 08/14/2022 10:58 AM EST Radiation Therapy - Patient Education Note PATIENT NAME: Manish Root PATIENT August 14, 2022 [facility] [place]LOCATION: Critical access hospital READINESS TO LEARN [...] by: Nela Antoine RN documented in this encounterK[facility]01-24-2023 NoteOPERATIVE NOTE OPERATION DATE: 07/31/2022 PRIMARY CARE [...] to the recovery room in good condition.[id number] NoteOPERATIVE NOTE OPERATION DATE: 07/18/2022 PREOPERATIVE DIAGNOSIS: [...] on the pathology results. CC: [facility] NoteChief Complaint consultation for colon recall HPI [...] cancer History of colon polyps History of [place] (myocardial infarction) HTN (hypertension) Hypercholesterolemia OJEDA (nonalcoholic [...] Oral, Daily ergocalciferol 50,000 intl units Cap, 82633 International_Unit= 1 cap(s), Oral, qWeek fenofibrate 134 [...] Family History Patient (more content not included)...[facility], Cancer CenterComment on above:Result Comment: Electronically Signed By: JAQUAN WELCH, Renea Anderson\Date and Time Signed: 06/13/22 15:31 [id number] History of Past illness Narrative* ProblemNoted DateResolved DateOverlapping malignant neoplasm of colon documented as of this encounter (statuses as of 08/14/2022) [facility] of [facility] illness Narrative* ProblemNoted Date Resolved DateOverlapping malignant neoplasm of colon documented as of this encounter (statuses as of 08/14/2022) [facility] History of [facility] illness Narrative* ProblemNoted Date Resolved DateOverlapping malignant neoplasm of colon documented as of this encounter (statuses as of 08/15/2022) [address]22-2015 History of Past illness Narrative* ProblemNoted Date Resolved DateOverlapping malignant neoplasm of colon documented as of this encounter (statuses as of 08/17/2022) [address] History of Past illness Narrative* ProblemNoted Date Resolved DateOverlapping malignant neoplasm of colon documented as of this encounter (statuses as of 08/20/2022) [address]22[address]2015 History of Past illness Narrative* ProblemNoted Date Resolved DateOverlapping malignant neoplasm of colon documented as of this encounter (statuses as of 08/22/2022) [address]2015 History of Past illness Narrative* ProblemNoted Date Resolved DateOverlapping malignant neoplasm of colon documented as of this encounter (statuses as of 08/22/2022) [address]2015 History of Past illness Narrative* ProblemNoted Date Resolved DateOverlapping malignant neoplasm of colon documented as of this encounter (statuses as of 08/24/2022) [address]2015 History of Past illness Narrative* ProblemNoted Date Resolved DateOverlapping malignant neoplasm of colon documented as of this encounter (statuses as of 08/24/2022) [address] History of Past illness Narrative* ProblemNoted Date Resolved DateOverlapping malignant neoplasm of colon documented as of this encounter (statuses as of 08/27/2022) [address]2015 History of Past illness Narrative* ProblemNoted Date Resolved DateOverlapping malignant neoplasm of colon documented as of this encounter (statuses as of 08/27/2022) [address] History of Past illness Narrative* ProblemNoted Date Resolved DateOverlapping malignant neoplasm of colon documented as of this encounter (statuses as of 08/28/2022) [address]2015 History of Past illness Narrative* ProblemNoted Date Resolved DateOverlapping malignant neoplasm of colon documented as of this encounter (statuses as of 08/29/2022) [address]2015 History of Past illness Narrative* ProblemNoted Date Resolved DateOverlapping malignant neoplasm of colon documented as of this encounter (statuses as of 09/03/2022) [address]2015 History of Past illness Narrative* ProblemNoted Date Resolved DateOverlapping malignant neoplasm of colon documented as of this encounter (statuses as of 09/03/2022) [address]2015 History of Past illness Narrative* ProblemNoted Date Resolved DateOverlapping malignant neoplasm of colon documented as of this encounter (statuses as of 09/04/2022) [address]2015 History of Past illness Narrative* ProblemNoted Date Resolved DateOverlapping malignant neoplasm of colon documented as of this encounter (statuses as of 09/06/2022) [address]2015 History of Past illness Narrative* ProblemNoted Date Resolved DateOverlapping malignant neoplasm of colon documented as of this encounter (statuses as of 09/07/2022) [address]2015 History of Past illness Narrative* ProblemNoted Date Resolved DateOverlapping malignant neoplasm of colon documented as of this encounter (statuses as of 09/10/2022) [address]2015 History of Past illness Narrative* ProblemNoted Date Resolved DateOverlapping malignant neoplasm of colon documented as of this encounter (statuses as of 09/10/2022) [address]2015 History of Past illness Narrative* ProblemNoted Date Resolved DateOverlapping malignant neoplasm of colon documented as of this encounter (statuses as of 09/11/2022) [address]2015 History of Past illness Narrative* ProblemNoted Date Resolved DateOverlapping malignant neoplasm of colon documented as of this encounter (statuses as of 09/17/2022) [address]2015 History of Past illness Narrative* ProblemNoted Date Resolved DateOverlapping malignant neoplasm of colon documented as of this encounter (statuses as of 09/18/2022) [address]2015 History of Past illness Narrative* ProblemNoted Date Resolved DateOverlapping malignant neoplasm of colon documented as of this encounter (statuses as of 09/21/2022) [address]2015 History of Past illness Narrative* ProblemNoted Date Resolved DateOverlapping malignant neoplasm of colon documented as of this encounter (statuses as of 09/24/2022) [address]2015 History of Past illness Narrative* ProblemNoted Date Resolved DateOverlapping malignant neoplasm of colon documented as of this encounter (statuses as of 10/01/2022) [address]2015 History of Past illness Narrative* ProblemNoted Date Resolved DateOverlapping malignant neoplasm of colon documented as of this encounter (statuses as of 10/03/2022) [address]2015 History of Past illness Narrative* ProblemNoted Date Resolved DateOverlapping malignant neoplasm of colon documented as of this encounter (statuses as of 10/05/2022) [address]2015 History of Past illness Narrative* ProblemNoted Date Resolved DateOverlapping malignant neoplasm of colon documented as of this encounter (statuses as of 10/08/2022) [address]2015 History of Past illness Narrative* ProblemNoted Date Resolved DateOverlapping malignant neoplasm of colon documented as of this encounter (statuses as of 10/09/2022) [address]2015 History of Past illness Narrative* ProblemNoted Date Resolved DateOverlapping malignant neoplasm of colon documented as of this encounter (statuses as of 10/11/2022) [address]2015 History of Past illness Narrative* ProblemNoted Date Resolved DateOverlapping malignant neoplasm of colon documented as of this encounter (statuses as of 10/15/2022) [address]2015 History of Past illness Narrative* ProblemNoted Date Resolved DateOverlapping malignant neoplasm of colon documented as of this encounter (statuses as of 10/19/2022) [address]2015 History of Past illness Narrative* ProblemNoted Date Resolved DateOverlapping malignant neoplasm of colon documented as of this encounter (statuses as of 10/20/2022) [address]2015 History of Past illness Narrative* ProblemNoted Date Resolved DateOverlapping malignant neoplasm of colon documented as of this encounter (statuses as of 10/26/2022) [address]22[address]2015 History of Past illness Narrative* ProblemNoted Date Resolved DateOverlapping malignant neoplasm of colon documented as of this encounter (statuses as of 2022) [address]2015 History of Past illness Narrative* ProblemNoted Date Resolved DateOverlapping malignant neoplasm of colon documented as of this encounter (statuses as of 2022) [address]2015 History of Past illness Narrative* ProblemNoted Date Resolved DateOverlapping malignant neoplasm of colon documented as of this encounter (statuses as of 2022) [address]2015 History of Past illness Narrative* ProblemNoted Date Resolved DateOverlapping malignant neoplasm of colon documented as of this encounter (statuses as of 11/07/2022) [facility] Narrative* ProblemNoted Date Resolved DateOverlapping malignant neoplasm of colon documented as of this encounter (statuses as of 11/07/2022) [facility] Narrative* ProblemNoted Date Resolved DateOverlapping malignant neoplasm of colon documented as of this encounter (statuses as of 12/04/2022) [facility] Narrative* ProblemNoted Date Diagnosed DateResolved DateOverlapping malignant neoplasm of colon04/28/2015 04/28/2015documented as of this encounter (statuses as of 02/06/2023) [facility] Narrative* ProblemNoted Date Diagnosed DateResolved DateOverlapping malignant neoplasm of colon04/28/2015 04/28/2015documented as of this encounter (statuses as of 02/06/2023) [facility] Narrative* ProblemNoted Date Diagnosed DateResolved DateOverlapping malignant neoplasm of colon04/28/2015 04/28/2015documented as of this encounter (statuses as of 02/11/2023) [facility] Narrative* ProblemNoted Date Diagnosed DateResolved DateOverlapping malignant neoplasm of colon04/28/2015 04/28/2015documented as of this encounter (statuses as of 03/20/2023) [facility] Narrative* ProblemNoted Date Diagnosed DateResolved DateOverlapping malignant neoplasm of colon04/28/2015 04/28/2015documented as of this encounter (statuses as of 05/15/2023) [facility] of [facility] illness Narrative* ProblemNoted Date Diagnosed DateResolved DateOverlapping malignant neoplasm of colon04/28/2015 04/28/2015documented as of this encounter (statuses as of 10/17/2023) [facility] No data available for this section General Surgery [facility]* Diagnosis 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, unspecified 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 cancer (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) Malignant neoplasm of head, face, and neck documented in this encounter [facility] note* Diagnosis 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, unspecified site documented in this encounter [facility] note* Diagnosis 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) documented in this encounter [facility] note* Diagnosis 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, unspecified site documented in this encounter [facility] note* Diagnosis 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, unspecified site documented in this encounter [facility] note* Diagnosis 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 [facility] encounter [facility]* Diagnosis 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 [facility] encounter [facility]* Diagnosis 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, unspecified site documented [facility] this encounter [facility]* Diagnosis 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 [facility]* Diagnosis 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, unspecified site documented [facility] this encounter [facility]* Diagnosis 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 [facility]* Diagnosis 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, unspecified site documented [facility] this encounter [facility]* Diagnosis 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) documented in this encounter [facility] note* Diagnosis 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 [facility]* Diagnosis 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, unspecified site [facility]* Diagnosis 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, unspecified site [facility]* Diagnosis Cancer of base of tongue [...] 2 diabetes mellitus without complication, unspecified whether medical service representative insulin use (HCC) Unspecified essential hypertension documented [...] metabolism [facility] Diagnosis 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 [facility]* Diagnosis Other specified disorders of thyroid- Primary [facility]* Diagnosis 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 Lung nodules Other nonspecific abnormal finding of lung field Stage 3 chronic kidney disease, unspecified whether stage 3a or 3b CKD (HCC) [facility]* Diagnosis Head and neck cancer (HCC)- Primary Malignant neoplasm of head, face, and neck documented [facility] noteNo assessment information availableAultman [facility] Work Phone: Evaluation note* Diagnosis Lung nodules Other nonspecific abnormal finding of lung field 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) [facility]* Diagnosis 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) Mass of right lung documented [facility]* Diagnosis Lung nodules Other nonspecific abnormal finding of lung field documented [facility]* Diagnosis 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) documented [facility]* Diagnosis Tongue cancer (HCC) 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, unspecified 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 cancer (HCC) Malignant neoplasm of head, face, and neck [facility]* Diagnosis Primary hypertension (CMS/HCC)- Primary Unspecified essential hypertension 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 ([facility]/HCC) Controlled type 2 diabetes mellitus without complication, without long-term current use of insulin ([facility]) Encounter for Medicare annual wellness exam [...] hyperlipidemia type (CMS/HCC) 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 (CMS/HCC) Controlled type 2 diabetes mellitus without complication, without long-term current use of insulin (CMS/HCC) 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 documented [facility] encounter [facility]* Diagnosis 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 Other nonspecific abnormal finding of lung field [facility]* Diagnosis Primary hypertension (CMS/HCC)- Primary Unspecified essential hypertension 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 (CMS/HCC) Controlled type [...] hyperlipidemia type (CMS/HCC) 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 (CMS/HCC) Controlled type 2 diabetes mellitus without complication, without long-term current use of insulin (CMS/HCC) Primary hypertension (CMS/HCC)- Primary Unspecified essential hypertension Controlled type 2 diabetes mellitus without complication, without long-term current use of insulin (CMS/HCC) 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 (CMS/HCC) documented in this encounter [facility]* Diagnosis 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 Lung nodules Other nonspecific abnormal finding of lung field Stage 3 chronic kidney disease, unspecified whether stage 3a or 3b CKD (HCC) [facility]* Diagnosis Head and neck cancer (HCC)- Primary Malignant neoplasm of head, face, and neck [facility]* Diagnosis Primary hypertension (CMS/HCC)- Primary Unspecified essential hypertension 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 (CMS/HCC) Controlled type [...] hyperlipidemia type (CMS/HCC) 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 (CMS/HCC) Controlled type 2 diabetes mellitus without complication, without long-term current use of insulin (CMS/HCC) Primary hypertension (CMS/HCC) Unspecified essential hypertension documented in this encounter [facility]* Diagnosis Primary hypertension (CMS/HCC)- Primary Unspecified essential hypertension 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 (CMS/HCC) Controlled type [...] complication, without long-term current use of insulin (/[facility]) Primary hypertension (CMS/HCC) Unspecified essential hypertension Hyperlipidemia, unspecified hyperlipidemia type (CMS/HCC) 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 (CMS/HCC) Controlled type 2 diabetes mellitus without complication, without long-term current use of insulin (/HCC) Seborrheic keratosis- Primary Actinic keratosis documented in this encounter [facility]* Diagnosis Primary hypertension (CMS/HCC)- Primary Unspecified essential hypertension 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 (CMS/HCC) Controlled type [...] hyperlipidemia type (CMS/HCC) 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 (CMS/HCC) Controlled type [...] Unspecified essential hypertension 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 (CMS/HCC) Controlled type [...] hyperlipidemia type (CMS/HCC) 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 (CMS/HCC) Controlled type [...] Unspecified essential hypertension 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 (CMS/HCC) Controlled type [...] hyperlipidemia type (CMS/HCC) 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 (CMS/HCC) Controlled type 2 diabetes mellitus without complication, without long-term current use of insulin (CMS/HCC) Need for vaccination Need for prophylactic vaccination and inoculation against unspecified single disease documented in this encounter [facility]* Diagnosis Primary hypertension (CMS/HCC)- Primary Unspecified essential hypertension 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 (CMS/HCC) Controlled type [...] hyperlipidemia type (CMS/HCC) 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 (CMS/HCC) Controlled type 2 diabetes mellitus without complication, without long-term current use of insulin (CMS/HCC) 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 documented in this encounter [facility]Evaluation [facility]* Diagnosis Primary hypertension (CMS/HCC)- Primary Unspecified essential hypertension 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 (CMS/HCC) Controlled type [...] hyperlipidemia type (CMS/HCC) 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 (CMS/HCC) Controlled type [...] disease, without long-term current use of insulin ([facility]) Torticollis Torticollis, unspecified Actinic keratosis documented in this encounter [facility] HealthcareEvaluation note* Diagnosis Primary hypertension ([facility]/HCC)- Primary Unspecified essential hypertension 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 ([facility]) Controlled type 2 diabetes mellitus without complication, without long-term current use of insulin ([facility]) Encounter for Medicare annual wellness exam Neck muscle spasm- Primary Type 2 diabetes mellitus without complications ([facility]) Controlled type 2 diabetes mellitus without complication, without long-term current use of insulin ([facility]) Stage 2 chronic kidney disease- Primary Type 2 diabetes mellitus without complication, without long-term current use of insulin ([facility]) Primary hypertension ([facility]) Unspecified essential hypertension Hyperlipidemia, unspecified hyperlipidemia type ([facility]) 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 ([facility]) Controlled type 2 diabetes mellitus without complication, without long-term current use of insulin ([facility]) Seborrheic keratosis- Primary Actinic keratosis Seborrheic keratosis, inflamed documented in this encounter [facility] HealthcareEvaluation note* Diagnosis Primary hypertension ([facility]/HCC)- Primary Unspecified essential hypertension 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 (/[facility]) Controlled type 2 diabetes mellitus without complication, without long-term current use of insulin Encounter for Medicare annual wellness exam Neck muscle spasm- Primary Type 2 diabetes mellitus without complications Controlled type 2 diabetes mellitus without complication, without long-term current use of insulin Stage 2 chronic kidney disease- Primary Type 2 diabetes mellitus without complication, without long-term current use of insulin Primary hypertension ([facility]) Unspecified essential hypertension Hyperlipidemia, unspecified hyperlipidemia type ([facility]) 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 ([facility]) Controlled type 2 diabetes mellitus without complication, without long-term current use of insulin Neck pain on left side- Primary Left hip pain Pain in joint, pelvic region and thigh Osteoarthritis, unspecified osteoarthritis type, unspecified site Stress incontinence of urine documented in this encounter [facility] HealthcareEvaluation note* Diagnosis Primary hypertension ([facility]/HCC)- Primary Unspecified essential hypertension 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 (CMS/HCC) Controlled type [...] hyperlipidemia type (CMS/HCC) 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 (CMS/HCC) Controlled type 2 diabetes mellitus without complication, without long-term current use of insulin 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 documented in this encounter [facility]Evaluation note* Diagnosis Primary hypertension (CMS/HCC)- Primary Unspecified essential hypertension 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 (CMS/HCC) Controlled type [...] hyperlipidemia type (CMS/HCC) 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 (CMS/HCC) Controlled type 2 diabetes mellitus without complication, without long-term current use of insulin Primary osteoarthritis of left hip- Primary Neck pain on left side Left hip pain Pain in joint, pelvic region and thigh Spondylosis of cervical region without myelopathy or radiculopathy Rheumatoid arthritis, unspecified documented in this encounter [facility]Evaluation note* Diagnosis 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 Lung nodules Other nonspecific abnormal finding of lung field Stage 3 chronic kidney disease, unspecified whether stage 3a or 3b CKD (HCC[facility] Acquired hypothyroidism- Primary Unspecified hypothyroidism [facility] Diagnosis Primary hypertension (CMS/HCC)- Primary Unspecified essential hypertension 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 (CMS/HCC) Controlled type [...] hyperlipidemia type (CMS/HCC) 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 (CMS/HCC) Controlled type 2 diabetes mellitus without complication, without long-term current use of insulin 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 Effusion of left knee Acute pain of left knee 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, without long-term current use of insulin (CMS/HCC) documented in this encounter [facility]Evaluation note* Diagnosis Primary hypertension- Primary Unspecified essential hypertension 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 Controlled type 2 [...] unspecified hyperlipidemia type 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 Controlled type 2 diabetes mellitus without complication, without long-term current use of insulin (HCC) Left hip pain- Primary Pain in joint, pelvic region and thigh Effusion of left knee Acute pain of left knee documented in this encounter [facility]Evaluation note* Diagnosis Primary hypertension- Primary Unspecified essential hypertension 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 Controlled type 2 [...] unspecified hyperlipidemia type 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 Controlled type 2 diabetes mellitus without complication, without long-term current use of insulin (HCC) Left lumbar radiculitis- Primary Left hip pain Pain in joint, pelvic region and thigh documented in this encounter [facility] HealthcareEvaluation note* Diagnosis Primary hypertension- Primary Unspecified essential hypertension 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 Controlled type 2 [...] unspecified hyperlipidemia type 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 Controlled type 2 diabetes mellitus without complication, without long-term current use of insulin (HCC) 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 documented in this encounter [facility]Evaluation note* Diagnosis Primary hypertension- Primary Unspecified essential hypertension 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 Controlled type 2 [...] unspecified hyperlipidemia type 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 Controlled type 2 diabetes mellitus without complication, without long-term current use of insulin (HCC) Primary osteoarthritis of left hip- Primary Pseudogout involving multiple joints Primary hypertension Unspecified essential hypertension 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, without long-term current use of insulin (HCC) Moderate mixed hyperlipidemia not requiring statin therapy documented in this encounter [facility] HealthcareEvaluation note* Diagnosis Primary hypertension- Primary Unspecified essential hypertension 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 Controlled type 2 diabetes mellitus without complication, without long-term current use of insulin ([facility]) Encounter for Medicare annual wellness exam [...] unspecified hyperlipidemia type 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 Controlled type 2 diabetes mellitus without complication, without long-term current use of insulin (HCC) 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 documented in this encounter [facility]Evaluation note* Diagnosis Primary hypertension- Primary Unspecified essential hypertension 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 Controlled type 2 diabetes mellitus without complication, without long-term current use of insulin ([facility]) Encounter for Medicare annual wellness exam [...] unspecified hyperlipidemia type 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 Controlled type 2 diabetes mellitus without complication, without long-term current use of insulin (HCC) Left hip pain- Primary Pain in joint, pelvic region and thigh Pseudogout involving multiple joints Primary osteoarthritis of left hip documented in this encounter [facility]Evaluation note* Diagnosis Primary hypertension- Primary Unspecified essential hypertension 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 Controlled type 2 [...] unspecified hyperlipidemia type 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 Controlled type 2 diabetes mellitus without complication, without long-term current use of insulin (HCC) Primary osteoarthritis of left hip- Primary 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, without long-term current use of insulin (HCC) 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 Abnormal EKG Nonspecific abnormal electrocardiogram (ECG) (EKG) History of heart artery stent documented in this encounter [facility] note* Diagnosis Primary hypertension- Primary Unspecified essential hypertension 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 Controlled type 2 [...] unspecified hyperlipidemia type 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 Controlled type 2 diabetes mellitus without complication, without long-term current use of insulin (HCC) Primary osteoarthritis of left hip- Primary Pre-op evaluation documented in this encounter [facility]Evaluation note* Diagnosis Primary hypertension- Primary Unspecified essential hypertension 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 No data available for this section General Surgery [place] Progress note No data available for this section General Surgery [place] Reason for referral (narrative)* Diagnostic Procedure Only (Routine) - AuthorizedSpecialtyDiagnoses / ProceduresReferred By Contact Referred To ContactMOLECULAR & FUNCTIONAL IMAGING Diagnoses Cancer of the base of tongue (HCC) Procedures NM PET/CT SKULL-THIGH SUBSEQUENT PET IMAGING CT ATTENUATION SKULL BASE MID-THIGH Yordan Feliz MD [address] [place] [address] [place] [address] Molecular & Functional Imaging [address] [place] [address] Referral IDStatusReasonStart DateExpiration DateVisits RequestedVisits [id number] Auto-Generated Referral / [facility] for referral (narrative)* Diagnostic Procedure Only (Routine) - ClosedSpecialtyDiagnoses / ProceduresReferred By ContactReferred To ContactMOLECULAR & FUNCTIONAL IMAGING Diagnoses Cancer of the base of tongue (HCC) Procedures NM PET/CT SKULL-THIGH SUBSEQUENT PET IMAGING CT ATTENUATION SKULL BASE MID-THIGH Yordan Feliz MD [address] [place] [address] [address] [place] [id number] Molecular & Functional Imaging [address] [place] [address] Referral IDStatusReasonStart DateExpiration DateVisits RequestedVisits [id number] Auto-Generated Referral T [facility] for referral (narrative)* Diagnostic Procedure Only (Routine) - ClosedSpecialtyDiagnoses / ProceduresReferred By ContactReferred To ContactMOLECULAR & FUNCTIONAL IMAGING Diagnoses Tongue cancer (HCC) Head and neck cancer (HCC) Procedures NM PET/CT SKULL-THIGH INITIAL PET IMAGING CT ATTENUATION SKULL BASE MID-THIGH Yordan Feliz MD [address] [place] [address] [place] [address] Molecular & Functional Imaging [address] [place] [address] Referral IDStatusReasonStart DateExpiration DateVisits RequestedVisits [id number] Auto-Generated Referral / [facility] for referral (narrative)No reason for referral information availableSelect Medical [facility] Work Phone: Summary Purpose Family History [...] COMPUTED TOMOGRAPHY THORAX W/CONTRAST John England MD [address] [place] [address] [place] [address] Ct Imaging [facility] Referral IDStatusReasonStart DateExpiration DateVisits RequestedVisits [id number] Auto-Generated Referral /[id number] / ProceduresReferred By ContactReferred To ContactCT IMAGING Diagnoses Lung nodules Procedures CT CHEST W IVCON DIAGNOSTIC COMPUTED TOMOGRAPHY THORAX W/CONTRAST John England MD [address] [place] [address] [place] [address] Ct Imaging Referral IDStatusReasonStart DateExpiration DateVisits RequestedVisits [id number] Auto-Generated Referral /[id number] / ProceduresReferred By ContactReferred To Contact Diagnoses Tongue cancer (HCC) Procedures CT SIM PLANNING RADIATION ONCOLOGY THER RAD SIMULAJ-AIDED FIELD SETTING COMPLEX Yordan Feliz MD [address] [place] [address] [place] [address] Referral IDStatusReasonStart DateExpiration DateVisits RequestedVisits [id number] Review PCP Requested Referral /[id number] / ProceduresReferred By ContactReferred To ContactDentistry Diagnoses Tongue cancer (HCC) Procedures CONSULT TO DENTISTRY OFFICE/OUTPATIENT [facility] 60-74 MINUTES Travis Dave MD [address] [place] [address] [place] [address] Referral IDStatusReasonStart DateExpiration DateVisits RequestedVisits [id number] Review PCP Requested Referral [id number] / ProceduresReferred By ContactReferred To ContactOncology Diagnoses Head and neck cancer (HCC) Procedures CONSULT TO ONCOLOGY OFFICE/OUTPATIENT [facility] 60-74 MINUTES Yordan Feliz MD [address] [place] [address] [place] [address] Referral IDStatusRealvin j. siteman cancer centerStharrisonville DateExpiration DateVisits RequestedVisits [id number] PCP Requested Referral [id number] / ProceduresReferred By ContactReferred To ContactMOLECULAR & FUNCTIONAL IMAGING Diagnoses Tongue cancer (HCC) Head and neck cancer (HCC) Procedures NM PET/CT SKULL-THIGH INITIAL PET IMAGING CT ATTENUATION SKULL BASE MID-THIGH Yordan Feliz MD [address] [place] [address] [place] [address] Molecular & Functional Imaging [address] [place] [address] Ref[facility]Status[facility] DateExpiration DateVisits RequestedVisits [id number] Review Auto-Generated Referral Medications Administered Section Medication OrderMAR ActionAction DateDoseRateSite CISplatin 79.6 mg in NaCl 0.9% 1,129.6 mL (PLATINOL) 79.6 mg (40 mg/m2 1.99 m2 Treatment Plan BSA from Recorded weight), INTRAVENOUS, Administer over 1 Hours, ONCE, 1 dose, On 09/03/22 at 1130, Approx Total Volume: mL EXP:09/04/2022@1745Hazardous Chemotherapy Drug: Use appropriate PPE. Antineoplastic Vesicant for concentrations greater than 0.4 mg/mL - Antineoplastic Irritant for concentrations less than 0.4 mg/mL. Protect from Light. New Bag/Syringe/Yoadir3409/03/2022 1:09 PM EST79.6 mg dexAMETHasone 10 mg/NS 50 mL (PYXIS) 10 mg ivpb (DECADRON) 10 mg, INTRAVENOUS, ONCE, 1 dose, On Sat09/03/22 at 1130, Refrigerate. New Bag/Syringe/Oggxlv7509/03/2022 11:50 AM EST10 mg fosaprepitant 150 mg in NaCl 0.9% 250 mL (EMEND) 150 mg, INTRAVENOUS, Administer over 30 Minutes, ONCE, 1 dose, On Sat09/03/22 at 1130, Approximate Total Volume = 280 mL New Bag/Syringe/Xoyicn5909/03/2022 12:16 PM DVI528 mg furosemide 40 mg injection (LASIX) 40 mg, INTRAVENOUS, ONCE, 1 dose, On Sat09/03/22 at 1130 Given09/03/2022 2:31 PM EST40 mg magnesium sulfate 2 g in NaCl 0.9% 1,000 mL INTRAVENOUS, at 1,054 mL/hr, Administer over 1 Hours, ONCE, 1 dose, On Sat09/03/22 at 1130, TV 1054ml New Bag/Syringe/Pxrzuv8409/03/2022 2:35 PM LLX9642 mL/hr NaCl 0.9% iv bolus 1,000 mL 1,000 mL, INTRAVENOUS, at 999 mL/hr, Administer over 1 Hours, ONCE, 1 dose, On Sat09/03/22 at 1130 New Bag/Syringe/Wpsgvb2609/03/2022 11:41 AM EST1,000 mL999 mL/hr ondansetron (PF) [...] than 0.4 mg/mL. Protect from Light. New Bag/Syringe/Ryxqtw7709/10/2022 2:12 PM EST79.6 mg dexAMETHasone 10 mg/NS 50 mL (PYXIS) 10 mg ivpb (DECADRON) 10 mg, INTRAVENOUS, ONCE, 1 dose, On Sat09/10/22 at 1300, Refrigerate. New Bag/Syringe/Pgapkc8409/10/2022 12:56 PM EST10 mg fosaprepitant 150 mg in NaCl 0.9% 250 mL (EMEND) 150 mg, INTRAVENOUS, Administer over 30 Minutes, ONCE, 1 dose, On Sat09/10/22 at 1300, Approximate Total Volume = 280 mL New Bag/Syringe/Prncmw9209/10/2022 1:20 PM EUV249 mg furosemide 40 mg injection (LASIX) 40 [...] and Hematology/Oncology 4) Eclampsia or Preeclampsia New Bag/Syringe/Kjwdnw9809/10/2022 3:37 PM EST2 g50 mL/hr NaCl 0.9% 1,000 mL INTRAVENOUS, at 999 mL/hr, Administer over 1 Hours, ONCE, 1 dose, On Sat09/10/22 at 1400 New Bag/Syringe/Rvnwyj9709/10/2022 3:34 PM FTJ519 mL/hr NaCl 0.9% iv bolus 1,000 mL 1,000 mL, INTRAVENOUS, at 999 mL/hr, Administer over 1 Hours, ONCE, 1 dose, On Sat09/10/22 at 1400 New Bag/Syringe/Jgpktj5109/10/2022 12:38 PM EST1,000 mL999 mL/hr ondansetron (PF) [...] than 0.4 mg/mL. Protect from Light. New Bag/Syringe/Uqjjue6009/17/2022 1:05 PM EDT79.6 mg dexAMETHasone 10 mg/NS 50 mL (PYXIS) 10 mg ivpb (DECADRON) 10 mg, INTRAVENOUS, ONCE, 1 dose, On Sat09/17/22 at 1230, Refrigerate. New Bag/Syringe/Ddtgkm1509/17/2022 12:08 PM EDT10 mg fosaprepitant 150 mg in NaCl 0.9% 250 mL (EMEND) 150 mg, INTRAVENOUS, Administer over 30 Minutes, ONCE, 1 dose, On Sat09/17/22 at 1230, Approximate Total Volume = 280 mL New Bag/Syringe/Qyoleu7409/17/2022 12:29 PM YWS718 mg furosemide 40 mg injection (LASIX) 40 [...] and Hematology/Oncology 4) Eclampsia or Preeclampsia New Bag/Syringe/Wyepjv4509/17/2022 2:25 PM EDT2 g50 mL/hr NaCl 0.9% 1,000 mL INTRAVENOUS, at 999 mL/hr, Administer over 1 Hours, ONCE, 1 dose, On Sat09/17/22 at 1230 New Bag/Syringe/Sforum2509/17/2022 2:26 PM CQT814 mL/hr NaCl 0.9% iv bolus 1,000 mL 1,000 mL, INTRAVENOUS, at 999 mL/hr, Administer over 1 Hours, ONCE, 1 dose, On Sat09/17/22 at 1230 New Bag/Syringe/Lekfnv5609/17/2022 11:20 AM EDT1,000 mL999 mL/hr ondansetron (PF) [...] than 0.4 mg/mL. Protect from Light. New Bag/Syringe/Irczox4510/01/2022 1:16 PM EDT79.6 mg dexAMETHasone 10 mg/NS 50 mL (PYXIS) 10 mg ivpb (DECADRON) 10 mg, INTRAVENOUS, ONCE, 1 dose, On Sat10/01/22 at 1230, Refrigerate. New Bag/Syringe/Gjtqvo3710/01/2022 12:16 PM EDT10 mg fosaprepitant 150 mg in NaCl 0.9% 250 mL (EMEND) 150 mg, INTRAVENOUS, Administer over 30 Minutes, ONCE, 1 dose, On Sat10/01/22 at 1230, Approximate Total Volume = 280 mL New Bag/Syringe/Qttdfx0510/01/2022 12:43 PM PJI712 mg furosemide 40 mg injection (LASIX) 40 [...] and Hematology/Oncology 4) Eclampsia or Preeclampsia New Bag/Syringe/Fmplzf0510/01/2022 2:40 PM EDT2 g50 mL/hr NaCl 0.9% 1,000 mL INTRAVENOUS, at 999 mL/hr, Administer over 1 Hours, ONCE, 1 dose, On Sat10/01/22 at 1230 New Bag/Syringe/Pgvdge8910/01/2022 2:35 PM UQA758 mL/hr NaCl 0.9% iv bolus 1,000 mL 1,000 mL, INTRAVENOUS, at 999 mL/hr, Administer over 1 Hours, ONCE, 1 dose, On Sat10/01/22 at 1230 New Bag/Syringe/Opuotc2110/01/2022 11:25 AM EDT1,000 mL999 mL/hr ondansetron (PF) [...] than 0.4 mg/mL. Protect from Light. New Bag/Syringe/Ipdfus2510/08/2022 1:36 PM EDT79.6 mg dexAMETHasone 10 mg/NS 50 mL (PYXIS) 10 mg ivpb (DECADRON) 10 mg, INTRAVENOUS, ONCE, 1 dose, On Sat10/08/22 at 1130, Refrigerate. New Bag/Syringe/Fuzogr9810/08/2022 1:13 PM EDT10 mg fosaprepitant 150 mg in NaCl 0.9% 250 mL (EMEND) 150 mg, INTRAVENOUS, Administer over 30 Minutes, ONCE, 1 dose, On Sat10/08/22 at 1130, Approximate Total Volume = 280 mL New Bag/Syringe/Udfgfq5710/08/2022 12:38 PM WTE053 mg furosemide 40 mg injection (LASIX) 40 [...] and Hematology/Oncology 4) Eclampsia or Preeclampsia New Bag/Syringe/Zcoboe5610/08/2022 3:13 PM EDT2 g50 mL/hr NaCl 0.9% 1,000 mL INTRAVENOUS, at 999 mL/hr, Administer over 1 Hours, ONCE, 1 dose, On Sat10/08/22 at 1230 New Bag/Syringe/Cjassk1710/08/2022 2:41 PM OYQ047 mL/hr NaCl 0.9% iv bolus 1,000 mL 1,000 mL, INTRAVENOUS, at 999 mL/hr, Administer over 1 Hours, ONCE, 1 dose, On Sat10/08/22 at 1130 New Bag/Syringe/Awoheh2610/08/2022 11:41 AM EDT1,000 mL999 mL/hr ondansetron (PF) 8 mg injection (ZOFRAN) 8 mg, INTRAVENOUS, ONCE, 1 dose, On Sat10/08/22 at 1130 Given10/08/2022 1:13 PM EDT8 mgMedication OrderMAR ActionAction DateDoseRateSite NaCl 0.9% 500 mL INTRAVENOUS, at 999 mL/hr, Administer over 0.5 Hours, ONCE, 1 dose, On Sat10/31/22 at 1600 New Bag/Syringe/Zutevj9510/31/2022 2:44 PM KNR426 mL/hr Chief Complaint and Reason for Visit Chief Complaint Plugged ears Chief Complaint Plugged ears Bug bite on R arm Chief Complaint Admit Date Unknown April 29, 2025 1 2:06pm Additional Source Comments Patient Care team informatio n (unrecognized section and content) Team MemberRelationshipSpecialtyStart DateEnd Date Mannie Nelson MD [address] [place] [address] PCP - GeneralFamily Medicine11/16/11Team MemberRelationshipSpecialtyStart DateEnd Date Mannie Nelson MD [address] [place] [address] PCP - GeneralFamily Medicine11/16/11Team MemberRelationshipSpecialtyStart DateEnd Date Mannie Nelson MD [address] [place] [address] PCP - GeneralFamily Medicine11/16/11Team MemberRelationshipSpecialtyStart DateEnd Date Mannie Nelson MD [address] [facility] [place] [address] PCP - GeneralFamily Medicine11/16/11Team MemberRelationshipSpecialtyStart DateEnd Date Mannie Nelson MD [address] [facility] [place] [address] PCP - GeneralFamily Medicine11/16/11 Dee Gil, RD [address] [facility] [place] [address] Registered DietitianNutrition08/20/22Team MemberRelationshipSpecialtyStart Date End Date Mannie Nelson MD [address] [place] [address] PCP - GeneralFamily Medicine11/16/11 Dee Gil, KARLOS [address] [place] [address] Registered DietitianNutrition08/20/22 John England MD [address] [place] [address] PhysicianHematology/Oncology08/21/22 Natalie Cadena, YENY[employer] [address] [place] [address] Nurse PractitionerHematology/Oncology08/21/22 Rafael Bob, [place] [address] [facility] [place] [address] Specialty Care CoordinatorHematology/Oncology08/21/22 Yordan Feliz MD [address] [facility] [place] [address] PhysicianRadiation Oncology08/21/22Team MemberRelationshipSpecialtyStart DateEnd Date Mannie Nelson MD [address] [place] [facility]], [place] [address] PCP - [facility] Medicine11/16/[address] [facility] [place] [address] Registered DietitianNutrition08/20/22 John England MD [address] [facility] [place] [address] PhysicianHematology/Oncology08/21/22 Natalie Cadena, [employer] [address] [facility] [place] [address] Nurse PractitionerHematology/Oncology08/21/22 Rafael Bob, [place] [address] [facility] [place] [address] Specialty Care CoordinatorHematology/Oncology08/21/22 Yordan Feliz MD [address] [facility] [place] [address] PhysicianRadiation Oncology08/21/22Team MemberRelationshipSpecialtyStart DateEnd Date Mannie Nelson MD [address] [place] [facility]], [place] [address] PCP - [facility] Medicine11/16/[address] [facility] [place] [address] Registered DietitianNutrition08/20/22 John England MD [address] [facility] [place] [address] PhysicianHematology/Oncology08/21/22 Natalie Cadena, [employer] [address] [facility] [place] [address] Nurse PractitionerHematology/Oncology08/21/22 Rafael Bob, [place] [address] [facility] [place] [address] Specialty Care CoordinatorHematology/Oncology08/21/22 Yordan Feliz MD [address] [facility] [place] [address] PhysicianRadiation Oncology08/21/22Team MemberRelationshipSpecialtyStart DateEnd Date Mannie Nelson MD [address] [facility]], [place] [address] PCP - GeneralFamily Medicine11/16/11 Dee Gil, RD [address] [facility] [place] [address] Registered DietitianNutrition08/20/22 John England MD [address] [facility] [place] [address] PhysicianHematology/Oncology08/21/22 Natalie Cadena, [employer] [address] [facility] [place] [address] Nurse PractitionerHematology/Oncology08/21/22 Rafael Bob, RN [address] [facility] [place] [address] Specialty Care CoordinatorHematology/Oncology08/21/22 Yordan Feliz MD [address] [facility] [place] [address] PhysicianRadiation Oncology08/21/22Team MemberRelationshipSpecialtyStart DateEnd Date Mannie Nelson MD [address] [place] [facility]], [place] [address] PCP - [facility] Medicine11/16/11 Dee Gil, KARLOS [address] [facility] [place] [address] Registered DietitianNutrition08/20/22 John England MD [address] [facility] [place] [address] PhysicianHematology/Oncology08/21/22 Natalie Cadena, [employer]ER.[employer] [address] [facility] [place] [address] Nurse PractitionerHematology/Oncology08/21/22 Rafael Bob, [place] [address] [facility] [place] [address] Specialty Care CoordinatorHematology/Oncology08/21/22 Yordan Feliz MD [address] [facility] [place] [address] PhysicianRadiation Oncology08/21/22Team MemberRelationshipSpecialtyStart DateEnd Date Mannie Nelson MD [address] [place] [facility]], [place] [address] PCP - [facility] Medicine11/16/11 Dee Gil, KARLOS [address] [facility] [place] [address] Registered DietitianNutrition08/20/22 John England MD [address] [facility] [place] [address] PhysicianHematology/Oncology08/21/22 Natalie Cadena, [employer] [address] [facility] [place] [address] Nurse PractitionerHematology/Oncology08/21/22 Rafael Bob, [place] [address] [facility] [place] [address] Specialty Care CoordinatorHematology/Oncology08/21/22 Yordan Feliz MD [address] [facility] [place] [address] PhysicianRadiation Oncology08/21/22Team MemberRelationshipSpecialtyStart DateEnd Date Mannie Nelson MD [address] [place] [address] PCP - GeneralFamily Medicine11/16/11Team MemberRelationshipSpecialtyStart DateEnd Date Mannie Nelson MD [address] [place] [address] PCP - GeneralFamily Medicine11/16/11 Dee Gil, KARLOS [address] [facility] [place] [address] Registered DietitianNutrition08/20/22 John England MD [address] [facility] [place] [address] PhysicianHematology/Oncology08/21/22 Natalie Cadena, [employer]ER.[employer] [address] [facility] [place] [address] Nurse PractitionerHematology/Oncology08/21/22 Rafael Bob, RN [address] [facility] [place] [address] Specialty Care CoordinatorHematology/Oncology08/21/22 Yordan Feliz MD [address] [facility] [place] [address] PhysicianRadiation Oncology08/21/22Team MemberRelationshipSpecialtyStart DateEnd Date Mannie Nelson MD [address] [place] [facility]], [place] [address] PCP - [facility] Medicine11/16/[address] [facility] [place] [address] Registered DietitianNutrition08/20/22 John England MD [address] [facility] [place] [address] PhysicianHematology/Oncology08/21/22 Naatlie Cadena, [employer] [address] [facility] [place] [address] Nurse PractitionerHematology/Oncology08/21/22 Rafael Bob, [place] [address] [facility] [place] [address] Specialty Care CoordinatorHematology/Oncology08/21/22 Yordan Feliz MD [address] [facility] [place] [address] PhysicianRadiation Oncology08/21/22Team MemberRelationshipSpecialtyStart DateEnd Date Mannie Nelson MD [address] [place] [address] [facility]11/16/[address] [facility] [place] [address] Registered DietitianNutrition08/20/22 John England MD [address] [facility] [place] [address] PhysicianHematology/Oncology08/21/22 Natalie Cadena, [employer]ER.[employer] [address] [facility] [place] [address] Nurse PractitionerHematology/Oncology08/21/22 Rafael Bob, RN [address] [facility] [place] [address] Specialty Care CoordinatorHematology/Oncology08/21/22 Yordan Feliz MD [address] [facility] [place] [address] PhysicianRadiation Oncology08/21/22Team MemberRelationshipSpecialtyStart DateEnd Date Mannie Nelson MD [address] [facility]], [place] [address] PCP - Generalmily Medicine11/16/11 Dee Gil, RD [address] [facility] [place] [address] Registered DietitianNutrition08/20/22 John England MD [address] [facility] [place] [address] PhysicianHematology/Oncology08/21/22 Natalie Cadena, [employer]ER.[employer] [address] [facility] [place] [address] Nurse PractitionerHematology/Oncology08/21/22 Rafael Bob, RN [address] [facility] [place] [address] Specialty Care CoordinatorHematology/Oncology08/21/22 Yordan Feliz MD [address] [facility] [place] [address] PhysicianRadiation Oncology08/21/22Team MemberRelationshipSpecialtyStart DateEnd Date Mannie Nelson MD [address] [place] [facility]], [place] [address] PCP - [facility] Medicine11/16/11 Dee Gil, RD [address] [facility] [place] [address] Registered DietitianNutrition08/20/22 John England MD [address] [facility] [place] [address] PhysicianHematology/Oncology08/21/22 Natalie Cadena, [employer]ER.[employer] [address] [facility] [place] [address] Nurse PractitionerHematology/Oncology08/21/22 Rafael Bob, [place] [address] [facility] [place] [address] Specialty Care CoordinatorHematology/Oncology08/21/22 Yordan Feliz MD [address] [facility] [place] [address] PhysicianRadiation Oncology08/21/22 Marysol Purvis LSW Social Worker09/07/22Team MemberRelationshipSpecialtyStart DateEnd Date Mannie Nelson MD [address] [place] [facility]], [place] [address] PCP - [facility] Medicine11/16/11 Dee Gil, KARLOS [address] [facility] [place] [address] Registered DietitianNutrition2/13/23 John England MD [address] [facility] [address] [place], [place] [address] PhysicianHematology/Oncology08/21/22 Natalie Cadena, [employer]ER.[employer] [address] [facility] [place] [address] Nurse PractitionerHematology/Oncology08/21/22 Rafael Bob, RN [address] [facility] [place] [address] Specialty Care CoordinatorHematology/Oncology08/21/22 Yordan Feliz MD [address] [facility] [place] [address] PhysicianRadiation Oncology08/21/22 Marysol Purvis LSW Social Worker09/07/22Team MemberRelationshipSpecialtyStart DateEnd Date Mannie Nelson MD [address] [place] [facility]], [place] [address] PCP - GeneralFamily Medicine11/16/11 Dee Gil, RD [address] [facility] [place] [address] Registered DietitianNutrition08/20/22 John England MD [address] [facility] [place] [address] PhysicianHematology/Oncology08/21/22 Natalie Cadena, O[employer]ER.[employer] [address] [facility] [place] [address] Nurse PractitionerHematology/Oncology08/21/22 Rafael Bob, RN [address] [facility] [place] [address] Specialty Care CoordinatorHematology/Oncology08/21/22 Yordan Feliz MD [address] [facility] [place] [address] PhysicianRadiation Oncology08/21/22 Marysol Purvis, [facility] Social Worker09/07/22Team MemberRelationshipSpecialtyStart DateEnd Date Mannie Nelson MD [address] [place] [facility]], [place] [address] PCP - [facility] Medicine11/16/11 Dee Gil, RD [address] [facility] [place] [address] Registered DietitianNutrition08/20/22 John England MD [address] [facility] [place] [address] PhysicianHematology/Oncology08/21/22 Natalie Cadena, [employer] [address] [facility] [place] [address] Nurse PractitionerHematology/Oncology08/21/22 Rafael Bob, [place] [address] [facility] [place] [address] Specialty Care CoordinatorHematology/Oncology08/21/22 Yordan Feliz MD [address] [facility] [place] [address] PhysicianRadiation Oncology08/21/22 Marysol Purvis, [facility] Social Worker09/07/22Team MemberRelationshipSpecialtyStart DateEnd Date Mannie Nelson MD [address] [place] [facility]], [place] [address] PCP - [facility] Medicine11/16/11 Dee Gil, RD [address] [facility] [place] [address] Registered DietitianNutrition08/20/22 John England MD [address] [facility] [place] [address] PhysicianHematology/Oncology08/21/22 Natalie Cadena, [employer] [address] [facility] [place] [address] Nurse PractitionerHematology/Oncology08/21/22 Rafael Bob, RN [address] [facility] [place] [address] Specialty Care CoordinatorHematology/Oncology08/21/22 Yordan Feliz MD [address] [facility] [place] [address] PhysicianRadiation Oncology08/21/22 Marysol Purvis LSW Social Worker09/07/22Team MemberRelationshipSpecialtyStart DateEnd Date Mannie Nelson MD [address] [place] [address] PCP - GeneralFamily Medicine11/16/11 Dee Gil, RD [address] [facility] [place] [address] Registered DietitianNutrition08/20/22 John England MD [address] [facility] [place] [address] PhysicianHematology/Oncology08/21/22 Natalie Cadena, [employer] [address] [facility] [place] [address] Nurse PractitionerHematology/Oncology08/21/22 Rafael Bob, RN [address] [facility] [place] [address] Specialty Care CoordinatorHematology/Oncology08/21/22 Yordan Feliz MD [address] [facility] [place] [address] PhysicianRadiation Oncology08/21/22 Marysol Purvis, [facility] Social Worker09/07/22Team MemberRelationshipSpecialtyStart DateEnd Date Mannie Nelson MD [address] [place] [facility]], [place] [address] PCP - [facility] Medicine11/16/11 Dee Gil, KARLOS [address] [facility] [place] [address] Registered DietitianNutrition08/20/22 John England MD [address] [facility] [place] [address] PhysicianHematology/Oncology08/21/22 Natalie Cadena, [employer] [address] [facility] [place] [address] Nurse PractitionerHematology/Oncology08/21/22 Rafael Bob, [place] [address] [facility] [place] [address] Specialty Care CoordinatorHematology/Oncology08/21/22 Yordan Feliz MD [address] [facility] [place] [address] PhysicianRadiation Oncology08/21/22 Marysol Purvis, [facility] Social Worker09/07/22Team MemberRelationshipSpecialtyStart DateEnd Date Mannie Nelson MD [address] [place] [facility]], [place] [address] [facility]CP - [facility]11/16/11 Dee Gil, KARLOS [address] [facility] [place] [address] Registered DietitianNutrition08/20/22 John England MD [address] [facility] [place] [address] PhysicianHematology/Oncology08/21/22 Natalie Cadena, [employer] [address] [facility] [place] [address] Nurse PractitionerHematology/Oncology08/21/22 Rafael Bob, RN [address] [facility] [place] [address] Specialty Care CoordinatorHematology/Oncology08/21/22 Yordan Feliz MD [address] [facility] [place] [address] PhysicianRadiation Oncology08/21/22 Marysol Purvis LSW Social Worker09/07/22Team MemberRelationshipSpecialtyStart DateEnd Date Mannie Nelson MD [address] [facility]], [place] [address] PCP - Generalmi Medicine11/16/11 Dee Gil, RD [address] [facility] [place] [address] Registered DietitianNutrition08/20/22 John England MD [address] [facility] [place] [address] PhysicianHematology/Oncology08/21/22 Natalie Cadena, [employer] [address] [facility] [place] [address] Nurse PractitionerHematology/Oncology08/21/22 Rafael Bob, RN [address] [facility] [place] [address] Specialty Care CoordinatorHematology/Oncology08/21/22 Yordan Feliz MD [address] [facility] [place] [address] PhysicianRadiation Oncology08/21/22 Marysol Purvis, [facility] Social Worker09/07/22Team MemberRelationshipSpecialtyStart DateEnd Date Mannie Nelson MD [address] [place] [facility]], [place] [address] PCP - Generalmily Medicine11/16/11 Dee Gil, KARLOS [address] [facility] [place] [address] Registered DietitianNutrition08/20/22 John England MD [address] [facility] [place] [address] PhysicianHematology/Oncology08/21/22 Natalie Cadena, O[employer] [address] [facility] [place] [address] Nurse PractitionerHematology/Oncology08/21/22 Rafael Bob, RN [address] [facility] [place] [address] Specialty Care CoordinatorHematology/Oncology08/21/22 Yordan Feliz MD [address] [facility] [place] [address] PhysicianRadiation Oncology08/21/22 Marysol Purvis, [facility] Social Worker09/07/22Team MemberRelationshipSpecialtyStart DateEnd Date Mannie Nelson MD [address] [place] [facility]], [place] [address] PCP - GeneralFamily Medicine11/16/11 Dee Gil, KARLOS [address] [facility] [address] [place], [place] [address] Registered DietitianNutrition08/20/22 John England MD [address] [facility] [place] [address] PhysicianHematology/Oncology08/21/22 Natalie Cadena, [employer] [address] [facility] [place] [address] Nurse PractitionerHematology/Oncology08/21/22 Rafael Bob, RN [address] [facility] [place] [address] Specialty Care CoordinatorHematology/Oncology08/21/22 Yordan Feliz MD [address] [facility] [place] [address] PhysicianRadiation Oncology08/21/22 Marysol Purvis LSW Social Worker09/07/22Team MemberRelationshipSpecialtyStart DateEnd Date Mannie Nelson MD [address] [facility]], [place] [address] PCP - Generalmily Medicine11/16/11 Dee Gil, RD [address] [facility] [place] [address] Registered DietitianNutrition08/20/22 John England MD [address] [facility] [place] [address] PhysicianHematology/Oncology08/21/22 Natalie Cadena, [employer] [address] [facility] [place] [address] Nurse PractitionerHematology/Oncology08/21/22 Rafael Bob, [place] [address] [facility] [place] [address] Specialty Care CoordinatorHematology/Oncology08/21/22 Yordan Feliz MD [address] [facility] [place] [address] PhysicianRadiation Oncology08/21/22 Marysol Purvis LSW Social Worker09/07/22Team MemberRelationshipSpecialtyStart DateEnd Date Mannie Nelson MD [address] [facility]], [place] [address] [facility] - [facility]11/16/[address] [facility] [place] [address] Registered DietitianNutrition08/20/22 John England MD [address] [facility] [place] [address] PhysicianHematology/Oncology08/21/22 Natalie Cadena, [employer] [address] [facility] [place] [address] Nurse PractitionerHematology/Oncology08/21/22 Rafael Bob, RN [address] [facility] [place] [address] Specialty Care CoordinatorHematology/Oncology08/21/22 Yodran Feliz MD [address] [facility] [place] [address] PhysicianRadiation Oncology08/21/22 Marysol Purvis LSW Social Worker09/07/22Team MemberRelationshipSpecialtyStart DateEnd Date Mannie Nelson MD [address] [place] [facility]], [place] [address] [facility]CP - [facility]11/16/[address] [facility] [place] [address] Registered DietitianNutrition08/20/22 John England MD [address] [facility] [place] [address] PhysicianHematology/Oncology08/21/22 Natalie Cadena, [employer] [address] [facility] [place] [address] Nurse PractitionerHematology/Oncology08/21/22 Rafael Bob, RN [address] [facility] [place] [address] Specialty Care CoordinatorHematology/Oncology08/21/22 Yordan Feliz MD [address] [facility] [place] [address] PhysicianRadiation Oncology08/21/22 Marysol Purvis LSW Social Worker09/07/22Team MemberRelationshipSpecialtyStart DateEnd Date Mannie Nelson MD [address] [place] [address] PCP - Generalmily Medicine11/16/11 Dee Gil, RD [address] [facility] [place] [address] Registered DietitianNutrition08/20/22 John England MD [address] [facility] [place] [address] PhysicianHematology/Oncology08/21/22 Natalie Caedna, [employer] [address] [facility] [place] [address] Nurse PractitionerHematology/Oncology08/21/22 Rafael Bob, RN [address] [facility] [place] [address] Specialty Care CoordinatorHematology/Oncology08/21/22 Yordan Feliz MD [address] [facility] [place] [address] PhysicianRadiation Oncology08/21/22 Marysol Purvis, [employer] Social Worker09/07/22Team MemberRelationshipSpecialtyStart DateEnd Date Mannie Nelson MD [address] [facility]], [place] [address] PCP - GeneralFamily Medicine11/16/[address] [facility] [place] [address] Registered DietitianNutrition08/20/22 John England MD [address] [facility] [place] [address] PhysicianHematology/Oncology08/21/22 Natalie Cadena, [employer] [address] [facility] [place] [address] Nurse PractitionerHematology/Oncology08/21/22 Rafael Bob, [place] [address] [facility] [place] [address] Specialty Care CoordinatorHematology/Oncology08/21/22 Yordan Feliz MD [address] [facility] [place] [address] PhysicianRadiation Oncology08/21/22 Marysol Purvis, [employer] Social Worker09/07/22Team MemberRelationshipSpecialtyStart DateEnd Date Mannie Nelson MD [address] [place] [facility]], [place] [address] PCP - GeneralFamily Medicine11/16/[address] [facility] [place] [address] Registered DietitianNutrition08/20/22 John England MD [address] [facility] [place] [address] PhysicianHematology/Oncology08/21/22 Natalie Cadena, [employer] [address] [facility] [place] [address] Nurse PractitionerHematology/Oncology08/21/22 Rafael Bob, [place] [address] [facility] [place] [address] Specialty Care CoordinatorHematology/Oncology08/21/22 Yordan Feliz MD [address] [facility] [place] [address] PhysicianRadiation Oncology08/21/22 Marysol Purvis LSW Social Worker09/07/22Team MemberRelationshipSpecialtyStart DateEnd Date Mannie Nelson MD [address] [place] [address] PCP - GeneralFamily Medicine11/16/11 Dee Gil, KARLOS [address] [facility] [place] [address] Registered DietitianNutrition08/20/22 John England MD [address] [facility] [place] [address] PhysicianHematology/Oncology08/21/22 Natalie Cadena, ORE [employer]ER.[employer] [address] [facility] [place] [address] Nurse PractitionerHematology/Oncology08/21/22 Rafael Bob, RN [address] [facility] [address] [place], [place] [address] Specialty Care CoordinatorHematology/Oncology08/21/22 Yordan Feliz MD [address] [facility] [place] [address] PhysicianRadiation Oncology08/21/22 Marysol Purvis, [facility] Social Worker09/07/22Team MemberRelationshipSpecialtyStart DateEnd Date Mannie Nelson MD [address] [place] [facility]], [place] [address] PCP - GeneralFamily Medicine11/16/[address] [facility] [place] [address] Registered DietitianNutrition08/20/22 John England MD [address] [facility] [place] [address] PhysicianHematology/Oncology08/21/22 Natalie Cadena, [employer] [address] [facility] [place] [address] Nurse PractitionerHematology/Oncology08/21/22 Rafael Bob, [place] [address] [facility] [place] [address] Specialty Care CoordinatorHematology/Oncology08/21/22 Yordan Feliz MD [address] [facility] [place] [address] PhysicianRadiation Oncology08/21/22 Marysol Purvis, [employer]ILDER Social Worker09/07/22Team MemberRelationshipSpecialtyStart DateEnd Date Mannie Nelson MD [address] [place] [facility]], [place] [address] PCP - GeneralFamily Medicine11/16/11 Dee Gil KARLOS [address] [facility] [place] [address] Registered DietitianNutrition08/20/22 John England MD [address] [facility] [place] [address] PhysicianHematology/Oncology08/21/22 Natalie Cadena, [employer] [address] [facility] [place] [address] Nurse PractitionerHematology/Oncology08/21/22 Rafael Bob, [place] [address] [facility] [place] [address] Specialty Care CoordinatorHematology/Oncology08/21/22 Yordan Feliz MD [address] [facility] [place] [address] PhysicianRadiation Oncology08/21/22 Marysol Purvis LSW Social Worker09/07/22Team MemberRelationshipSpecialtyStart DateEnd Date Mannie Nelson MD [address] [place] [address] PCP - GeneralFamily Medicine11/16/[address] [facility] [place] [address] Registered DietitianNutrition08/20/22 John England MD [address] [facility] [place] [address] PhysicianHematology/Oncology08/21/22 Natalie Cadena, [employer] [address] [facility] [place] [address] Nurse PractitionerHematology/Oncology08/21/22 Rafael Bob, RN [address] [facility] [place] [address] Specialty Care CoordinatorHematology/Oncology08/21/22 Yordan Feliz MD [address] [facility] [place] [address] PhysicianRadiation Oncology08/21/22 Marysol Purvis, [facility] Social Worker09/07/22Team MemberRelationshipSpecialtyStart DateEnd Date Mannie Nelson MD [address] [facility]], [place] [address] PCP - GeneralFamily Medicine11/16/[address] [facility] [place] [address] Registered DietitianNutrition08/20/22 John England MD [address] [facility] [place] [address] PhysicianHematology/Oncology08/21/22 Natalie Cadena, ORE [employer]ER.[employer] [address] [facility] [place] [address] Nurse PractitionerHematology/Oncology08/21/22 Rafael Bob, [place] [address] [facility] [place] [address] Specialty Care CoordinatorHematology/Oncology08/21/22 Yordan Feliz MD [address] [facility] [place] [address] PhysicianRadiation Oncology08/21/22 Marysol Purvis, [facility] Social Worker09/07/22Team MemberRelationshipSpecialtyStart DateEnd Date Mannie Nelson MD [address] [place] [facility]], [place] [address] PCP - GeneralFamily Medicine11/16/[address] [facility] [place] [address] Registered DietitianNutrition08/20/22 John England MD [address] [facility] [place] [address] PhysicianHematology/Oncology08/21/22 Natalie Cadena, [employer] [address] [facility] [place] [address] Nurse PractitionerHematology/Oncology08/21/22 Rafael Bob, [place] [address] [facility] [place] [address] Specialty Care CoordinatorHematology/Oncology08/21/22 Yordan Feliz MD [address] [facility] [place] [address] PhysicianRadiation Oncology08/21/22 Marysol Purvis LSW Social Worker09/07/22Team MemberRelationshipSpecialtyStart DateEnd Date Shaikh Drake MD [address] [place] [address] PCP - GeneralPrimary Care02/06/[address] [place] [address] [place] [address] Registered DietitianNutrition08/20/22 John England MD [address] [place] [address] [place] [address] PhysicianHematology/Oncology08/21/22 Natalie Cadena, O[employer]ER.[employer] [address] [place] [address] [place] [address] Nurse PractitionerHematology/Oncology08/21/22 Rafael Bob, [place] [address] [facility] [place] [address] Specialty Care CoordinatorHematology/Oncology08/21/22 Yordan Feliz MD [address] [facility] [place] [address] PhysicianRadiation Oncology08/21/22 Marysol Purvis LSW Social Worker09/07/22Team MemberRelationshipSpecialtyStart DateEnd Date Shaikh Drake MD [address] [place] [address] PCP - GeneralPrimary Care02/06/[address] [place] [address] [place] [address] Registered DietitianNutrition08/20/22 John England MD [address] [place] [address] [place] [address] PhysicianHematology/Oncology08/21/22 Natalie Cadena APRN.[employer] [address] [place] [address] [place] [address] Nurse PractitionerHematology/Oncology08/21/22 Rafael Bob RN [address] [facility] [place] [address] Specialty Care CoordinatorHematology/Oncology08/21/22 Yordan Feliz MD [address] [facility] [place] [address] PhysicianRadiation Oncology08/21/22 Marysol Purvis, [facility] Social Worker09/07/22Team MemberRelationshipSpecialtyStart DateEnd Date Shaikh Drake MD [address] [place] [address] PCP - GeneralPrimary Care02/06/[address] [facility] [place] [address] Registered DietitianNutrition08/20/22 John England MD [address] [facility] [place] [address] PhysicianHematology/Oncology08/21/22 Natalie Cadena APRN.[employer] [address] [facility] [place] [address] Nurse PractitionerHematology/Oncology08/21/22 Rafael Bob, [place] [address] [facility] [place] [address] Specialty Care CoordinatorHematology/Oncology08/21/22 Yordan Feliz MD [address] [facility] [place] [address] PhysicianRadiation Oncology08/21/22 Marysol Purvis, [facility] Social Worker09/07/22Team MemberRelationshipSpecialtyStart DateEnd Date Shaikh Drake MD [address] [place] [address] PCP - GeneralPrimary Care02/06/[address] [facility] [place] [address] Registered DietitianNutrition08/20/22 John England MD [address] [place] [address] [place] [address] PhysicianHematology/Oncology08/21/22 Natalie Cadena, [employer] [address] [facility] [place] [address] Nurse PractitionerHematology/Oncology08/21/22 Rafael Bob, [place] [address] [facility] [place] [address] Specialty Care CoordinatorHematology/Oncology08/21/22 Yordan Feliz MD [address] [facility] [place] [address] PhysicianRadiation Oncology08/21/22 Marysol Purvis LSW Social Worker09/07/22Team MemberRelationshipSpecialtyStart DateEnd Date Shaikh Drake MD [address] [place] [address] PCP - GeneralPrimary Care02/06/[address] [place] [address] [place] [address] Registered DietitianNutrition08/20/22 John England MD [address] [facility] [place] [address] PhysicianHematology/Oncology08/21/22 Natalie Cadena, YENY.[employer] [address] [facility] [place] [address] Nurse PractitionerHematology/Oncology08/21/22 Rafael Bob, [place] [address] [facility] [place] [address] Specialty Care CoordinatorHematology/Oncology08/21/22 Yordan Feliz MD [address] [facility] [place] [address] PhysicianRadiation Oncology08/21/22 Marysol Purvis LSW Social Worker09/07/22Team MemberRelationshipSpecialtyStart DateEnd Date Shaikh Drake MD [address] [place] [address] PCP - GeneralPrimary Care02/06/[address] [place] [address] [place] [address] Registered DietitianNutrition08/20/22 John England MD [address] [place] [address] [place] [address] PhysicianHematology/Oncology08/21/22 Natalie Cadena APRN.[employer] [address] [place] [address] [place] [address] Nurse PractitionerHematology/Oncology08/21/22 Rafael Bob RN [address] [facility] [place] [address] Specialty Care CoordinatorHematology/Oncology08/21/22 Yordan Feliz MD [address] [facility] [place] [address] PhysicianRadiation Oncology08/21/22 Marysol Purvis, ISH Social Worker09/07/22Team MemberRelationshipSpecialtyStart DateEnd Date Shaikh Drake MD [address] [place] [address] PCP - GeneralPrimary Care02/06/[address] [facility] [place] [address] Registered DietitianNutrition08/20/22 John England MD [address] [facility] [place] [address] PhysicianHematology/Oncology08/21/22 Natalie Cadena APRN.[employer] [address] [facility] [place] [address] Nurse PractitionerHematology/Oncology08/21/22 Rafael Bob, [place] [address] [facility] [place] [address] Specialty Care CoordinatorHematology/Oncology08/21/22 Yordan Feliz MD [address] [facility] [place] [address] PhysicianRadiation Oncology08/21/22 Marysol Purvis, [facility] Social Worker09/07/22 Team Status: Active Member Role Status Dates Odell Schmidt DO Primary Care Provider Active Team Status: Inactive Member Role Status Dates Michelle Singh APRN Attending Provider Active Start: January 14, 2024 End: January 13Maryan Diaz Care ProviderActiveStart: January 14, 2024 End: January 14, 2024Team MemberRelationshipSpecialtyStart DateEnd Date Shaikh Drake MD [address] [place] [address] PCP - GeneralPrimary Care02/06/[address] [facility] [place] [address] Registered DietitianNutrition08/20/22 John England MD [address] [place] [address] [address] [place], [facility] PhysicianHematology/Oncology08/21/22 Natalie Cadena APRN.[facility] [address] [place] [address] [place] [address] Nurse PractitionerHematology/Oncology08/21/22 Rafael Bob, [place] [address] [facility] [place] [address] Specialty Care CoordinatorHematology/Oncology08/21/22 Yordan Feliz MD [address] [place] [address] [place] [address] PhysicianRadiation Oncology08/21/22 Marysol Purvis LSW Social Worker09/07/22Team MemberRelationshipSpecialtyStart DateEnd Date Mannie Nelson MD [address] [place] [address] PCP - GeneralFascly Medicine Dee Tirado RD [address] [place] [address] [place] [address] Registered DietitianNutrition08/20/22 John England MD [address] [place] [address] [place] [address] PhysicianHematology/Oncology08/21/22 Natalie Cadena APRN.[employer] [address] [facility] [place] [address] Nurse PractitionerHematology/Oncology08/21/22 Rafael Bob, [place] [address] [facility] [place] [address] Specialty Care CoordinatorHematology/Oncology08/21/22 Yordan Feliz MD [address] [place] [address] [place] [address] PhysicianRadiation Oncology08/21/22 Marysol Purvis LSW Social Worker09/07/22Team MemberRelationshipSpecialtyStart DateEnd Date Mannie Nelson MD [address] [place] [address] PCP - GeneralFamily Medicine Dee Tirado RD [address] [facility] [place] [address] Registered DietitianNutrition08/20/22 John England MD [address] [place] [address] [place] [address] PhysicianHematology/Oncology08/21/22 Natalie Cadena APRN.[employer] [address] [facility] [address] [place], [place] [address] Nurse PractitionerHematology/Oncology08/21/22 Rafael Bob RN [address] [facility] [place] [address] Specialty Care CoordinatorHematology/Oncology08/21/22 Yordan Feliz MD [address] [facility] [place] [address] PhysicianRadiation Oncology08/21/22Team MemberRelationshipSpecialtyStart DateEnd Date Mannie Nelson MD [address] [place] [facility] [place] [address] PCP - Generalmi Medicine Dee Tirado RD [address] [facility] [place] [address] Registered DietitianNutrition08/20/22 John Engladn MD [address] [place] [address] [address] [place], [facility]70 PhysicianHematology/Oncology08/21/22 Natalie Cadena APRN.[employer] [address] [place] [address] [place] [address] Nurse PractitionerHematology/Oncology08/21/22 Rafael Bob, [place] [address] [facility] [place] [address] Specialty Care CoordinatorHematology/Oncology08/21/22 Yordan Feliz MD [address] [facility] [place] [address] PhysicianRadiation Oncology08/21/22 Team Status: Inactive Member Role Status Dates Odell Schmidt DO Primary Care Provider Active Start: April 07, 2024 End: April 07Onofre Smallwood ProviderActiveStart: April 07, 2024 End: April 07, 2024Team MemberRelationshipSpecialtyStart DateEnd Date Unallocated, Quiana Thomas MD [address] [place] [address] [facility] - [facility] Pvvsahso30/7/24Te MemberRelationshipSpecialtyStart DateEnd Date Unallocated, Quiana Thomas MD [address] [place] [address] PCP - [facility] Koottwiv81/7/24Team MemberRelationshipSpecialtyStart DateEnd Date Unallocated, Quiana Thomas MD [facility] [place] [address] PCP - [facility]04/13/24Team MemberRelationshipSpecialtyStart DateEnd Date Shaikh Drake MD [facility] [place] [address] PCP - GeneralPrimary Care02/06/[address] [facility] [place] [address] Registered DietitianNutrition08/20/22 John England MD [address] [facility] [place] [address] PhysicianHematology/Oncology08/21/22 Natalie Cadena APRN.[employer] [address] [facility] [place] [address] Nurse PractitionerHematology/Oncology08/21/22 Rafael Bob, [place] [address] [facility] [place] [address] Specialty Care CoordinatorHematology/Oncology08/21/22 Yordan Feliz MD [address] [facility] [place] [address] PhysicianRadiation Oncology08/21/22 Marysol Purvis LSW Social Worker09/07/22Team MemberRelationshipSpecialtyStart DateEnd Date Unallocated, Quiana Thomas MD [address] [place] [address] PCP - GeneralFamily Cycdzczb34/7/24Team MemberRelationshipSpecialtyStart DateEnd Date Unallocated, Quiana Thomas MD [facility] [place] [address] PCP - GeneralFamily Obuxwcai07/7/24Team MemberRelationshipSpecialtyStart DateEnd Date Mason Johnson II, MD [address] [address] PCP - GeneralInternal Cwawqzuv00/30/[address] [place] [address] [place] [address] Registered DietitianNutrition08/20/22 John England MD [address] [place] [address] [place] [address] PhysicianHematology/Oncology08/21/22 Natalie Cadena APRN.[employer] [address] [facility] [place] [address] Nurse PractitionerHematology/Oncology08/21/22 Rafael Bob, [place] [address] [facility] [place] [address] Specialty Care CoordinatorHematology/Oncology08/21/22 Yordan Feliz MD [address] [facility] [place] [address] PhysicianRadiation Oncology08/21/22 Marysol Purvis, [employer] Social Worker09/07/22Team MemberRelationshipSpecialtyStart DateEnd Date Mason Johnson II, MD [address] [place], [place] [address] PCP - GeneralInternal Pxyiwbye55/30/[address] [facility] [place] [address] Registered DietitianNutrition08/20/22 John England MD [address] [facility] [place] [address] PhysicianHematology/Oncology08/21/22 Natalie Cadena APRN.[employer] [address] [facility] [place] [address] Nurse PractitionerHematology/Oncology08/21/22 Rafael Bob, [place] [address] [facility] [place] [address] Specialty Care CoordinatorHematology/Oncology08/21/22 Yordan Feliz MD [address] [facility] [place] [address] PhysicianRadiation Oncology08/21/22 Marysol Purvis, ISH Social Worker09/07/22Team MemberRelationshipSpecialtyStart DateEnd Date Unallocated, Quiana Thomas MD [address] [place] [address] PCP - GeneralFamily Hnsgjjlt84/7/24Team MemberRelationshipSpecialtyStart DateEnd Date Mason Johnson MD [address] [place] [address] PCP - GeneralInternal Atlolydx59/11/24Team MemberRelationshipSpecialtyStart Date End Date Mason Jonhson MD [address] [place] [address] PCP - GeneralInternal Lhesgfcx86/11/24Team MemberRelationshipSpecialtyStart Date End Date Mason Johnson MD [address] [facility] [address] [place] [address] PCP - GeneralInternal Wrlxbovf44/11/24Team MemberRelationshipSpecialtyStart Date End Date Mason Johnson MD [address] [facility] [address] [place] [address] PCP - GeneralInternal Wvuceskv57/11/24Team MemberRelationshipSpecialtyStart Date End Date Shaikh Draek MD [address] [place] [address] PCP - GeneralInternal Medicine11/05/23Team MemberRelationshipSpecialtyStart Date End Date Shaikh Drake MD [address] [place] [address] PCP - GeneralInternal Medicine11/05/23Team MemberRelationshipSpecialtyStart Date End Date Mason Johnson MD [address] [facility] [address] [place] [address] P[facility] - [facility] Axikbrsw44/11/24Te MemberRelationshipSpecialtyStart Date End Date Shaikh Drake MD [address] [place] [address] [facility]11/05/23Te MemberRelationshipSpecialtyStart Date End Date Shaikh Drake MD [address] [place] [address] PCP - [facility]11/05/23Te MemberRelationshipSpecialtyStart Date End Date Mason Johnson MD [address] [place] [address] PCP - [facility]05/18/24Te MemberRelationshipSpecialtyStart Date End Date Mason Johnson MD [address] [place] [address] [facility] - [facility] Jilknigr06/11/24 Mason Johnson MD [address] [place] [address] PCP - Medical [facility]07/08/2511Team MemberRelationshipSpecialtyStart Date End Date Mason Johnson MD [address] [place] [address] PCP - [facility] Pjejvwmi44/11/24 Mason Johnson MD [address] [place] [address] PCP - Medical [facility]07/08/2511Team MemberRelationshipSpecialtyStart Date End Date Mason Johnson MD [address] [place] [address] PCP - [facility]05/18/24 Mason Johnson MD [address] [place] [address] PCP - Medical [facility]07/08/2511Team MemberRelationshipSpecialtyStart Date End Date Mason Johnson MD [address] [place] [address] PCP - [facility]05/18/24 Mason Johnson MD [address] [place] [address] PCP - Medical [facility]07/08/2511Team MemberRelationshipSpecialtyStart Date End Date Mason Johnson MD [address] [place] [address] PCP - [facility]05/18/24 Mason Johnson MD [address] [place] [address] PCP - Medical [facility]07/08/2511Team MemberRelationshipSpecialtyStart Date End Date Mason Johnson MD [address] [place] [address] PCP - [facility]05/18/24 Mason Johnson MD [address] [place] [address] PCP - Medical [place]07/08/2511Team MemberRelationshipSpecialtyStart Date End Date Mason Johnson MD [address] [place] [address] P[facility] - [facility]05/18/24 Mason Johnson MD [address] [place] [address] PCP - Medical [facility]07/08/2511Team MemberRelationshipSpecialtyStart Date End Date Mason Johnson MD [address] [place] [address] PCP - [facility]05/18/24 Mason Johnson MD [address] [place] [address] PCP - Medical [facility]07/08/2511Team MemberRelationshipSpecialtyStart Date End Date Mason Johnson MD [address] [place] [address] PCP - [facility]05/18/24 Mason Johnson MD [address] [place] [address] PCP - Medical [facility]07/08/2511Team MemberRelationshipSpecialtyStart Date End Date Mason Johnson MD [address] [place] [address] PCP - [facility]05/18/24 Mason Johnson MD [address] [place] [address] PCP - Medical [place]07/08/2511Team MemberRelationshipSpecialtyStart Date End Date Mason Johnson II, MD [address] [facility] [address] [place] [address] PCP - GeneralInternal Kbdaswpk05/30/[address] [facility] [place] [address] Registered DietitianNutrition08/20/22 John England MD [address] [facility] [place] [address] PhysicianHematology/Oncology08/21/22 Natalie Cadena APRN.[employer] [address] [facility] [place] [address] Nurse PractitionerHematology/Oncology08/21/22 Rafael Bob, [place] [address] [facility] [place] [address] Specialty Care CoordinatorHematology/Oncology08/21/22 Yordan Feliz MD [address] [facility] [place] [address] PhysicianRadiation Oncology08/21/22 Marysol Purvis LSW Social Worker09/07/22Team MemberRelationshipSpecialtyStart DateEnd Date Mason Johnson II, MD [address] [facility] [address] [place] [address] PCP - GeneralInternal Hhkmolce71/30/[address] [facility] [place] [address] Registered DietitianNutrition08/20/22 John England MD [address] [place] [address] [place] [address] PhysicianHematology/Oncology08/21/22 Natalie Cadena APRN.[employer] [address] [facility] [place] [address] Nurse PractitionerHematology/Oncology08/21/22 Rafael Bob, [place] [address] [facility] [place] [address] Specialty Care CoordinatorHematology/Oncology08/21/22 Yordan Feliz MD [address] [place] [address] [place] [address] PhysicianRadiation Oncology08/21/22 Marysol Purvis LSW Social Worker09/07/22Team MemberRelationshipSpecialtyStart DateEnd Date Mason Johnson MD [address] [facility] [address] [place] [address] PCP - GeneralInternal Svswalcb20/11/24 Mason Johnson MD [address] [place] [address] PCP - Medical [place]07/08/2511Team MemberRelationshipSpecialtyStart Date End Date Mason Johnson MD [address] [place] [address] PCP - GeneralInternal Gwrrcwnl65/11/24 Mason Johnson MD [address] [place] [address] PCP - Medical [place]07/08/2511Te MemberRelationshipSpecialtyStart Date End Date Mason Johnson MD [address] [place] [address] [facility] - [facility] Mason Johnson MD [address] [place] [address] PCP - Medical [facility]07/08/2511Te MemberRelationshipSpecialtyStart Date End Date Mason Johnson MD [address] [place] [address] PCP - [facility]05/18/24 Mason Johnson MD [address] [place] [address] PCP - Medical [facility]07/08/2511Te MemberRelationshipSpecialtyStart Date End Date Mason Johnson MD [address] [place] [address] PCP - [facility]05/18/24 Mason Johnson MD [address] [place] [address] PCP - Medical [facility]07/08/2511Te MemberRelationshipSpecialtyStart Date End Date Mason Johnson MD [address] [place] [address] PCP - GeneralInternal Ursrcjgi74/11/24 Mason Johnson MD [address] [place] [address] PCP - Medical [facility]07/08/2511Team MemberRelationshipSpecialtyStart Date End Date Mason Johnson MD [address] [place] [address] [facility] - [facility]/24 Mason Johnson MD [address] [place] [address] PCP - Medical [facility]07/08/2511Team MemberRelationshipSpecialtyStart Date End Date Mason Johnson MD [address] [place] [address] PCP - [facility]05/18/24 Mason Johnson MD [address] [place] [address] PCP - Medical [facility]07/08/2511Team MemberRelationshipSpecialtyStart Date End Date Mason Johnson MD [address] [place] [address] PCP - [facility]05/18/24 Mason Johnson MD [address] [place] [address] PCP - Medical [facility]07/08/2511Team MemberRelationshipSpecialtyStart Date End Date Mason Johnson MD [address] [place] [address] PCP - GeneralInternal Fewyhund72/11/24 Mason Johnson MD [address] [place] [address] PCP - Medical [place]07/08/2511 Team Status: Inactive Member Role/Relationship Status Dates Mechelle Boyer Jr, DO Attending Provider Active Start: April 29, 2025 End: April 29, 2025Team MemberRelationshipSpecialtyStart DateEnd Date Shaikh Drake MD PCP - GeneralInternal [facility] Shaikh Drake [facility] - [facility]11/04/2409 Unallocated, Quiana Thomas MD [address] [place] [address] PCP - [facility] Ekskegwm03/7/ Mason Johnson MD [address] [facility] [address] [place] [address] [facility] - [facility] Hoabmwwi47/11/24 Mason Johnson MD [address] [facility] [address] [place] [address] PCP - Medical [place]07/08/2511Team MemberRelationshipSpecialtyStart Date End Date Unallocated, [place] [address] [facility] - [facility] Mason Johnson MD [address] [facility] [address] [place] [address] PCP - GeneralInternal Zaopfyrm38/11/24 Mason Johnson MD [address] [facility] [address] [place] [address] PCP - Medical [place]07/08/2511Team MemberRelationshipSpecialtyStart Date End Date Unallocated, [place] Provider, [address] [place] [address] PCP - Generalmi Ynbbjtzk53/7/ Mason Johnson MD [address] [facility] [address] [place] [address] PCP - GeneralInternal Xocjjkzv81/11/24 Mason Johnson MD [address] [facility] [address] [place] [address] PCP - Medical [facility]07/08/2511 (unrecognized sect ion and content) No Status Records FoundNo Status Records FoundNo Status Records FoundNo Status Records FoundNo Status Records FoundNo Status Records FoundNo Status Records Found INFORMATION SOURCE (unrecogn ized section and content) DATE CREATED AUTHOR 07/31/2022 [facility] DATE CREATED AUTHOR AUTHOR'S ORGANIZ ATION 08/04/2022 [facility] DATE CREATED AUTHOR AUTHOR'S ORGANIZ ATION 03/28/2025 [facility] DATE CREATED AUTHOR AUTHOR'S ORGANIZ ATION 05/02/2025 [facility] DATE CREATED AUTHOR AUTHOR'S ORGANIZ ATION 05/02/2025 [facility] DATE CREATED AUTHOR AUTHOR'S ORGANIZ ATION 05/13/2025 [facility] DATE CREATED AUTHOR AUTHOR'S ORGANIZ ATION 05/15/2025 [facility] Source Comments (unrecognize d section and content) In the event this informatio n is protected by the Federal Confidentiality of Alcohol and Drug Abuse Patient Records regulations: The Federal rules restrict any use of the information to criminally investigate or prosecute any alcohol or drug abuse patient.[facility]In the event this information is protected by the Federal Confidentiality of Alcohol and Drug Abuse Patient Records regulations: The Federal rules restrict any use of the information to criminally investigate or prosecute any alcohol or drug abuse patient.[facility] SpringfieldIn the event this information is protected by the Federal Confidentiality of Alcohol and Drug Abuse Patient Records regulations: The Federal rules restrict any use of the information to criminally investigate or prosecute any alcohol or drug abuse patient.[facility] SpringfieldIn the event this information is protected by the Federal Confidentiality of Alcohol and Drug Abuse Patient Records regulations: The Federal rules restrict any use of the information to criminally investigate or prosecute any alcohol or drug abuse patient.[facility] SpringfieldIn the event this information is protected by the Federal Confidentiality of Alcohol and Drug Abuse Patient Records regulations: The Federal rules restrict any use of the information to criminally investigate or prosecute any alcohol or drug abuse patient.[facility] SpringfieldIn the event this information is protected by the Federal Confidentiality of Alcohol and Drug Abuse Patient Records regulations: The Federal rules restrict any use of the information to criminally investigate or prosecute any alcohol or drug abuse patient.[facility] SpringfieldIn the event this information is protected by the Federal Confidentiality of Alcohol and Drug Abuse Patient Records regulations: The Federal rules restrict any use of the information to criminally investigate or prosecute any alcohol or drug abuse patient.[facility] SpringfieldIn the event this information is protected by the Federal Confidentiality of Alcohol and Drug Abuse Patient Records regulations: The Federal rules restrict any use of the information to criminally investigate or prosecute any alcohol or drug abuse patient.[facility] SpringfieldIn the event this information is protected by the Federal Confidentiality of Alcohol and Drug Abuse Patient Records regulations: The Federal rules restrict any use of the information to criminally investigate or prosecute any alcohol or drug abuse patient.[facility] SpringfieldIn the event this information is protected by the Federal Confidentiality of Alcohol and Drug Abuse Patient Records regulations: The Federal rules restrict any use of the information to criminally investigate or prosecute any alcohol or drug abuse patient.[facility] SpringfieldIn the event this information is protected by the Federal Confidentiality of Alcohol and Drug Abuse Patient Records regulations: The Federal rules restrict any use of the information to criminally investigate or prosecute any alcohol or drug abuse patient.[facility] SpringfieldIn the event this information is protected by the Federal Confidentiality of Alcohol and Drug Abuse Patient Records regulations: The Federal rules restrict any use of the information to criminally investigate or prosecute any alcohol or drug abuse patient.[facility] SpringfieldIn the event this information is protected by the Federal Confidentiality of Alcohol and Drug Abuse Patient Records regulations: The Federal rules restrict any use of the information to criminally investigate or prosecute any alcohol or drug abuse patient.[facility] SpringfieldIn the event this information is protected by the Federal Confidentiality of Alcohol and Drug Abuse Patient Records regulations: The Federal rules restrict any use of the information to criminally investigate or prosecute any alcohol or drug abuse patient.[facility] SpringfieldIn the event this information is protected by the Federal Confidentiality of Alcohol and Drug Abuse Patient Records regulations: The Federal rules restrict any use of the information to criminally investigate or prosecute any alcohol or drug abuse patient.[facility] SpringfieldIn the event this information is protected by the Federal Confidentiality of Alcohol and Drug Abuse Patient Records regulations: The Federal rules restrict any use of the information to criminally investigate or prosecute any alcohol or drug abuse patient.[facility] SpringfieldIn the event this information is protected by the Federal Confidentiality of Alcohol and Drug Abuse Patient Records regulations: The Federal rules restrict any use of the information to criminally investigate or prosecute any alcohol or drug abuse patient.[facility] SpringfieldIn the event this information is protected by the Federal Confidentiality of Alcohol and Drug Abuse Patient Records regulations: The Federal rules restrict any use of the information to criminally investigate or prosecute any alcohol or drug abuse patient.[facility] SpringfieldIn the event this information is protected by the Federal Confidentiality of Alcohol and Drug Abuse Patient Records regulations: The Federal rules restrict any use of the information to criminally investigate or prosecute any alcohol or drug abuse patient.[facility] SpringfieldIn the event this information is protected by the Federal Confidentiality of Alcohol and Drug Abuse Patient Records regulations: The Federal rules restrict any use of the information to criminally investigate or prosecute any alcohol or drug abuse patient.[facility] SpringfieldIn the event this information is protected by the Federal Confidentiality of Alcohol and Drug Abuse Patient Records regulations: The Federal rules restrict any use of the information to criminally investigate or prosecute any alcohol or drug abuse patient.[facility] SpringfieldIn the event this information is protected by the Federal Confidentiality of Alcohol and Drug Abuse Patient Records regulations: The Federal rules restrict any use of the information to criminally investigate or prosecute any alcohol or drug abuse patient.[facility] SpringfieldIn the event this information is protected by the Federal Confidentiality of Alcohol and Drug Abuse Patient Records regulations: The Federal rules restrict any use of the information to criminally investigate or prosecute any alcohol or drug abuse patient.[facility] SpringfieldIn the event this information is protected by the Federal Confidentiality of Alcohol and Drug Abuse Patient Records regulations: The Federal rules restrict any use of the information to criminally investigate or prosecute any alcohol or drug abuse patient.[facility] SpringfieldIn the event this information is protected by the Federal Confidentiality of Alcohol and Drug Abuse Patient Records regulations: The Federal rules restrict any use of the information to criminally investigate or prosecute any alcohol or drug abuse patient.[facility] SpringfieldIn the event this information is protected by the Federal Confidentiality of Alcohol and Drug Abuse Patient Records regulations: The Federal rules restrict any use of the information to criminally investigate or prosecute any alcohol or drug abuse patient.[facility] SpringfieldIn the event this information is protected by the Federal Confidentiality of Alcohol and Drug Abuse Patient Records regulations: The Federal rules restrict any use of the information to criminally investigate or prosecute any alcohol or drug abuse patient.[facility] SpringfieldIn the event this information is protected by the Federal Confidentiality of Alcohol and Drug Abuse Patient Records regulations: The Federal rules restrict any use of the information to criminally investigate or prosecute any alcohol or drug abuse patient.[facility] SpringfieldIn the event this information is protected by the Federal Confidentiality of Alcohol and Drug Abuse Patient Records regulations: The Federal rules restrict any use of the information to criminally investigate or prosecute any alcohol or drug abuse patient.[facility] SpringfieldIn the event this information is protected by the Federal Confidentiality of Alcohol and Drug Abuse Patient Records regulations: The Federal rules restrict any use of the information to criminally investigate or prosecute any alcohol or drug abuse patient.[facility] SpringfieldIn the event this information is protected by the Federal Confidentiality of Alcohol and Drug Abuse Patient Records regulations: The Federal rules restrict any use of the information to criminally investigate or prosecute any alcohol or drug abuse patient.[facility] SpringfieldIn the event this information is protected by the Federal Confidentiality of Alcohol and Drug Abuse Patient Records regulations: The Federal rules restrict any use of the information to criminally investigate or prosecute any alcohol or drug abuse patient.[facility] SpringfieldIn the event this information is protected by the Federal Confidentiality of Alcohol and Drug Abuse Patient Records regulations: The Federal rules restrict any use of the information to criminally investigate or prosecute any alcohol or drug abuse patient.[facility] SpringfieldIn the event this information is protected by the Federal Confidentiality of Alcohol and Drug Abuse Patient Records regulations: The Federal rules restrict any use of the information to criminally investigate or prosecute any alcohol or drug abuse patient.[facility] SpringfieldIn the event this information is protected by the Federal Confidentiality of Alcohol and Drug Abuse Patient Records regulations: The Federal rules restrict any use of the information to criminally investigate or prosecute any alcohol or drug abuse patient.[facility] SpringfieldIn the event this information is protected by the Federal Confidentiality of Alcohol and Drug Abuse Patient Records regulations: The Federal rules restrict any use of the information to criminally investigate or prosecute any alcohol or drug abuse patient.[facility] SpringfieldIn the event this information is protected by the Federal Confidentiality of Alcohol and Drug Abuse Patient Records regulations: The Federal rules restrict any use of the information to criminally investigate or prosecute any alcohol or drug abuse patient.[facility] SpringfieldIn the event this information is protected by the Federal Confidentiality of Alcohol and Drug Abuse Patient Records regulations: The Federal rules restrict any use of the information to criminally investigate or prosecute any alcohol or drug abuse patient.[facility] SpringfieldIn the event this information is protected by the Federal Confidentiality of Alcohol and Drug Abuse Patient Records regulations: The Federal rules restrict any use of the information to criminally investigate or prosecute any alcohol or drug abuse patient.[facility] SpringfieldIn the event this information is protected by the Federal Confidentiality of Alcohol and Drug Abuse Patient Records regulations: The Federal rules restrict any use of the information to criminally investigate or prosecute any alcohol or drug abuse patient.[facility] SpringfieldIn the event this information is protected by the Federal Confidentiality of Alcohol and Drug Abuse Patient Records regulations: The Federal rules restrict any use of the information to criminally investigate or prosecute any alcohol or drug abuse patient.[facility] SpringfieldIn the event this information is protected by the Federal Confidentiality of Alcohol and Drug Abuse Patient Records regulations: The Federal rules restrict any use of the information to criminally investigate or prosecute any alcohol or drug abuse patient.[facility] SpringfieldIn the event this information is protected by the Federal Confidentiality of Alcohol and Drug Abuse Patient Records regulations: The Federal rules restrict any use of the information to criminally investigate or prosecute any alcohol or drug abuse patient.[facility] SpringfieldIn the event this information is protected by the Federal Confidentiality of Alcohol and Drug Abuse Patient Records regulations: The Federal rules restrict any use of the information to criminally investigate or prosecute any alcohol or drug abuse patient.[facility] SpringfieldIn the event this information is protected by the Federal Confidentiality of Alcohol and Drug Abuse Patient Records regulations: The Federal rules restrict any use of the information to criminally investigate or prosecute any alcohol or drug abuse patient.[facility] SpringfieldIn the event this information is protected by the Federal Confidentiality of Alcohol and Drug Abuse Patient Records regulations: The Federal rules restrict any use of the information to criminally investigate or prosecute any alcohol or drug abuse patient.[facility] SpringfieldIn the event this information is protected by the Federal Confidentiality of Alcohol and Drug Abuse Patient Records regulations: The Federal rules restrict any use of the information to criminally investigate or prosecute any alcohol or drug abuse patient.[facility] SpringfieldIn the event this information is protected by the Federal Confidentiality of Alcohol and Drug Abuse Patient Records regulations: The Federal rules restrict any use of the information to criminally investigate or prosecute any alcohol or drug abuse patient.[facility] SpringfieldIn the event this information is protected by the Federal Confidentiality of Alcohol and Drug Abuse Patient Records regulations: The Federal rules restrict any use of the information to criminally investigate or prosecute any alcohol or drug abuse patient.[facility] SpringfieldIn the event this information is protected by the Federal Confidentiality of Alcohol and Drug Abuse Patient Records regulations: The Federal rules restrict any use of the information to criminally investigate or prosecute any alcohol or drug abuse patient.[facility] SpringfieldIn the event this information is protected by the Federal Confidentiality of Alcohol and Drug Abuse Patient Records regulations: The Federal rules restrict any use of the information to criminally investigate or prosecute any alcohol or drug abuse patient.[facility] SpringfieldIn the event this information is protected by the Federal Confidentiality of Alcohol and Drug Abuse Patient Records regulations: The Federal rules restrict any use of the information to criminally investigate or prosecute any alcohol or drug abuse patient.[facility] SpringfieldIn the event this information is protected by the Federal Confidentiality of Alcohol and Drug Abuse Patient Records regulations: The Federal rules restrict any use of the information to criminally investigate or prosecute any alcohol or drug abuse patient.[facility] SpringfieldIn the event this information is protected by the Federal Confidentiality of Alcohol and Drug Abuse Patient Records regulations: The Federal rules restrict any use of the information to criminally investigate or prosecute any alcohol or drug abuse patient.[facility] SpringfieldIn the event this information is protected by the Federal Confidentiality of Alcohol and Drug Abuse Patient Records regulations: The Federal rules restrict any use of the information to criminally investigate or prosecute any alcohol or drug abuse patient.[facility] SpringfieldIn the event this information is protected by the Federal Confidentiality of Alcohol and Drug Abuse Patient Records regulations: The Federal rules restrict any use of the information to criminally investigate or prosecute any alcohol or drug abuse patient.[facility] SpringfieldIn the event this information is protected by the Federal Confidentiality of Alcohol and Drug Abuse Patient Records regulations: The Federal rules restrict any use of the information to criminally investigate or prosecute any alcohol or drug abuse patient.[facility] SpringfieldIn the event this information is protected by the Federal Confidentiality of Alcohol and Drug Abuse Patient Records regulations: The Federal rules restrict any use of the information to criminally investigate or prosecute any alcohol or drug abuse patient.[facility] SpringfieldIn the event this information is protected by the Federal Confidentiality of Alcohol and Drug Abuse Patient Records regulations: The Federal rules restrict any use of the information to criminally investigate or prosecute any alcohol or drug abuse patient.[facility] SpringfieldIn the event this information is protected by the Federal Confidentiality of Alcohol and Drug Abuse Patient Records regulations: The Federal rules restrict any use of the information to criminally investigate or prosecute any alcohol or drug abuse patient.[facility] SpringfieldIn the event this information is protected by the Federal Confidentiality of Alcohol and Drug Abuse Patient Records regulations: The Federal rules restrict any use of the information to criminally investigate or prosecute any alcohol or drug abuse patient.[facility] SpringfieldIn the event this information is protected by the Federal Confidentiality of Alcohol and Drug Abuse Patient Records regulations: The Federal rules restrict any use of the information to criminally investigate or prosecute any alcohol or drug abuse patient.[facility] SpringfieldIn the event this information is protected by the Federal Confidentiality of Alcohol and Drug Abuse Patient Records regulations: The Federal rules restrict any use of the information to criminally investigate or prosecute any alcohol or drug abuse patient.[facility] Reason for Visit (unrecogniz ed section and content) ReasonCommentsSuspicious Skin LesionSpecialtyDiagnoses / ProceduresReferred By ContactReferred To ContactDermatology Diagnoses Actinic keratosis Procedures SD OFFICE/OUTPATIENT [facility] 60 MINUTES Mason Johnson MD [address] [place] [address] Phone: tel: fax: Barry Stevens, [employer] [address] [place] [address] Phone: tel: fax: Referral IDStatusReasonStart DateExpiration DateVisits RequestedVisits [id number] Specialty Services Required /[id number] CTSpecialtyDiagnoses / Procedures Referred By ContactReferred To ContactMOLECULAR & FUNCTIONAL IMAGING Diagnoses Tongue cancer (HCC) Head and neck cancer (HCC) Procedures NM PET/CT SKULL-THIGH INITIAL PET IMAGING CT ATTENUATION SKULL BASE MID-THIGH Yordan Feliz MD [address] [place] [address] [place] [address] Molecular & Functional Imaging [address] [place] [address] Referral IDStatusReasonStharrisonville DateExpiration DateVisits RequestedVisits [id number] Auto-Generated Referral /[id number] EducationReasonCommentsConsultSpecialty Diagnoses / ProceduresReferred By ContactReferred To ContactRadiation Oncology / RADIATION ONCOLOGY Diagnoses Dr. 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 Images requested. Procedures NEW PATIENT RAD ONC Serene Morales [address] [place] [address] Yordan Feliz MD [address] [place] [address] [place] [address] Referral IDStatusReasonStharrisonville DateExpiration DateVisits RequestedVisits [id number] Request Financial Clearance Required - OON Payor /[id number] TelephoneReasonCommentsCare CoordinationTreatment PlanningReasonCommentsDental Clearance - Radiation Therapy ReasonOnset DateCommentsSimulation Request Form08/23/2022ReasonCommentsCare CoordinationPt QuestionsReasonCommentsCare CoordinationPET ResultsReasonComments tongue cancerReasonCommentsRadiotherapy On-treatment VisitSpecialtyDiagnoses / ProceduresReferred By ContactReferred To Contact Diagnoses 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) John England MD [address] [place] [address] [place] [address] Sebastien Treat Jose [address] [place] [address] [facility] DateExpiration DateVisits RequestedVisits [id number]/14/20235/[id number] PldlnoyoeujfD8H1 Post Treatment CallReasonCommentsSocial Work ServicesReason CommentsNutrition AssessmentReasonCommentscancer [...] 90 DAY RAD TX Yordan Feliz MD [address] [facility] [place] [address] Yordan Feliz MD [address] [place] [address] [place] [address] Referral IDStatusReasonStharrisonville DateExpiration DateVisits RequestedVisits [id number]/23/202312/31/[id number] of the base of tongueReasonCommentsHead and Neck CancerReasonCommentsCancer of the base of tongue1 month follow upReasonCommentsCare CoordinationResultsReasonComments 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)ReasonCommentsRadiology CTSpecialtyDiagnoses / ProceduresReferred By ContactReferred To ContactCT IMAGING Diagnoses Lung nodules 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) Procedures CT CHEST W IVCON DIAGNOSTIC COMPUTED TOMOGRAPHY THORAX W/CONTRAST John England MD [address] [facility] [place] [address] [facility] [place] [address] Referral IDStatusReasonStharrisonville DateExpiration DateVisits RequestedVisits [id number] Auto-Generated Referral /[id number] / ProceduresReferred By ContactReferred To ContactCT IMAGING Diagnoses 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) Mass of right lung Procedures CT CHEST W IVCON DIAGNOSTIC COMPUTED TOMOGRAPHY THORAX W/CONTRAST John England MD [address] [facility] [place] [address] [facility] [place] [address] Referral IDStatusReasonStart DateExpiration DateVisits RequestedVisits [id number] Auto-Generated Referral [id number] / ProceduresReferred By ContactReferred To ContactCT IMAGING Diagnoses Lung nodules Procedures CT CHEST W IVCON DIAGNOSTIC COMPUTED TOMOGRAPHY THORAX W/CONTRAST John England MD [address] [place] [address] [address] [place] [phone] [facility] [place] [address] Referral IDStatusReasonStharrisonville DateExpiration DateVisits RequestedVisits [id number] Auto-Generated Referral /[id number] NMSpecialtyDiagnoses / Procedures Referred By ContactReferred To ContactMOLECULAR & FUNCTIONAL IMAGING Diagnoses 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) Procedures NM PET/CT SKULL-THIGH SUBSEQUENT PET IMAGING CT ATTENUATION SKULL BASE MID-THIGH Yordan Feliz MD [address] [place] [address] [address] [place] [id number] [facility] [address] [place] [address] Referral IDStatusReasonStharrisonville DateExpiration DateVisits RequestedVisits [id number] Auto-Generated Referral /[id number] month check base of tongue.Specialty Diagnoses / ProceduresReferred By ContactReferred To ContactCT IMAGING Diagnoses 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 Procedures CT CHEST W IVCON DIAGNOSTIC COMPUTED TOMOGRAPHY THORAX W/CONTRAST John England MD [address] [place] [address] [address] [place] [phone] [facility] [place] [address] Referral IDStatusReasonStharrisonville DateExpiration DateVisits RequestedVisits [id number] Auto-Generated Referral [id number] CarePrevious pcp dr Rodriguez oncology twice yearly [...] month checkReasonCommentsHip PainResultsLeft hip mriURIReasonOnset DateComments hip THA04/19/20258546UkkkbeMwwdylcwBdzice4 mo checkReasonCommentsFollow-upSpecialty Diagnoses / ProceduresReferred By ContactReferred To ContactOrthopaedic Surgery Diagnoses 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 Mechelle Boyer, [address] [place] [address] Phone: tel: fax: Referral IDStatusReasonStart DateExpiration DateVisits RequestedVisits [id number] Specialty Services Required /[id number] presurgical instructions for ASA surgical clearance Goals [...] BE BASED ON THE PRIMARY CLINICAL RECORDS. [facility] [employer] [facility]. provides no warranty or guarantee of the accuracy or completeness of information in this document.
--- OUTSIDE RECORDS SUMMARY | 2025-05-19 06:54 | XMS_ITS ---
Author Organization [facility] Address [address] [place] [address] Care Team Providers Care Mobile Plant Operators Name Role Phone Mason Johnson MD Primary Care Provider [phone] Mason Johnson MD Unavailable [phone] Emergency Department Transitional Care Management (TCM) Status:Declined (Declined) Start date:05/07/2025 Enrollment date:05/10/2025 Enrollment reason:Identified using hospital discharge data End date:05/10/2025 Decline reason:Patient declined Overview Discharged from [facility] ER on 05/07. Please contact within 2 days of discharge for ERTOC and schedule a follow-up appointment if needed. <May 10, 2025, 14:49 - Vibha Rojo RN> er kiara completed. Declined CCM services Continued Care and Services Coordination
--- OUTSIDE RECORDS SUMMARY | 2025-05-19 06:54 | XMS_ITS | Encounter Summary ---
Author Organization [facility] Address [address] [place] [address] Care Team Providers Care Porcelain Mixer Name Role Phone Mason Johnson MD Primary Care Provider [phone] Mason Johnson MD Unavailable [phone] Encounter Details DateTypeDepartmentCare Team (Latest Contact Info)Hzubqamezkp76/06/2025Telephone [facility] [place] [facility] [address] [place] [address] Mason Johnson MD [address] [facility] [address] [place], [place] [address] Social History Tobacco UseTypesPacks/DayYears UsedDateSmoking Tobacco: NeverPassive [...] week06/10/2023How often do you attend spiritism or protestant services?Never06/10/2023o you belong to any clubs or organizations such as spiritism groups, unions, fraternal or athletic groups, or school groups?No 06/10/2023How often do you attend meetings of the clubs or organizations you belong to?Never06/10/2023re you , , , , never , or living with a partner?Fxqzgvs7306/10/2023UDIT-CAnswerDate RecordedQ1: How often do you have a drink containing alcohol?4 or more times a week 07/29/2023verage Number of DrinksNot on file07/29/2023Frequency of Binge DrinkingNot on file07/29/2023Overall Financial Resource Strain (CARDIA)Answer Date RecordedHow hard is it for you to pay for the very basics like food, housing, medical care, and heating?Very hard06/10/2023HQ-2AnswerDate Recorded Patient Health Questionnaire-2 Giqel642[facility] [place] of Occupational Health - Occupational Stress QuestionnaireAnswerDate [...] RecordedSex Assigned at BirthNot on file Legal DraGyri5709/19/2022 7:58 PM EDTGender IdentityNot on fileSexual Orientation Not on filedocumented as of this encounter Miscellaneous Notes * Telephone Encounter - Earlene Blanchard MA - 05/14/2025 11:43 AM EST Pt notified and he did make an appt * Telephone Encounter - Cecilia Moore - 05/13/2025 2:39 PM EST Manish [...] him soon. Please advise documented in this encounter Plan of Treatment DateTypeDepartmentCare Team (Latest Contact Info)Kcayvpuqoil79/17/2025 11:45 AM ESTOffice Visit [facility] [place] [facility] [address] [place] [address] Mason Johnson MD [address] [place] [address] 05/25/2025 9:20 AM ESTOffice Visit [facility] [place] [facility] [address] [place] [address] Hilda Mayte A, SINK MAKER-HEAVY EQUIPMENT OPERATING ENGINEER [address] [place] [address] 07/20/2025 8:30 AM ESTOffice Visit [facility] [place] [facility] [address] [place] [address] Leela Schwartz MD [address] [place] [address] documented as of this encounter Visit Diagnoses Diagnosis History of heart artery stent documented in this encounter Additional Health Concerns AssessmentNoted TimePHQ-9 Depression Total Score: 5:03 PM EST documented as of this encounter Care Teams Team MemberRelationshipSpecialtyStart DateEnd Date Mason Johnson MD [address] [place] [address] PCP - GeneralInternal Qqmamtja56/11/24 Mason Johnson MD [address] [place] [address] PCP - Medical [employer] [place]07/08/2511documented as of this encounter
--- OUTSIDE RECORDS SUMMARY | 2025-05-19 06:54 | XMS_ITS | Encounter Summary ---
Author Organization [facility] Address [address] [place] [address] Care Team Providers Care Plant Custodian Name Role Phone Mason Johnson MD Primary Care Provider [phone] Encounter Details DateTypeDepartmentCare Team (Latest Contact Info)Luedddndegg87/04/2025Orders Only [facility] [address] [place] [address] Sangita Pack MA Atrial flutter, unspecified type (CMS/HCC) (Primary Dx) Social History Tobacco UseTypesPacks/DayYears UsedDateSmoking Tobacco: NeverSmokeless Tobacco: NeverAlcohol UseStandard Drinks/WeekCommentsYes0 (1 standard drink = 0.6 oz pure alcohol)2 bottles of beer per daySex and Gender InformationValueDate RecordedSex Assigned at TfygnBofe14/04/2025 2:10 PM ESTLegal PhpDvea1101/03/2022 10:06 PM EDT Gender CglxtortHwsc17/04/2025 2:10 PM ESTSexual OrientationHeterosexual or Tgldsdcq71/04/2025 2:10 PM ESTdocumented as of this encounter Functional Status * BPAnswerDate of RqbdxtjtipPzutzr885/7905/11/2025 2:45 PM Awilda Martinez MA * PulseAnswerDate of LxnemyhylbJcvnvt3085/04/2025 2:45 PM Awilda Martinez MA * Patient PositionAnswerDate of TghoqdgaqeHillemIwwawbn09/04/2025 2:45 PM EST Awilad Gallagher MA * BPAnswerDate of VrruqbvshwJnmppf579/7905/11/2025 2:45 PM Awilda Martinez MA * PulseAnswerDate of RffhwkczjoAxtvcj3785/04/2025 2:45 PM Awilda Martinez MA * QmK7EzkfkjNyno of WtnurlxbxmAizotu8097/04/2025 2:45 PM Awilda Martinez MA * BP LocationAnswerDate of AssessmentAuthorLeft arm05/11/2025 2:45 PM Awilda Walters MA * Patient PositionAnswerDate of ZunzjztytnQxpbshLlasbea52/04/2025 2:45 PM Awilda Walters MA documented as of this encounter Plan of Treatment DateTypeDepartmentCare Team (Latest Contact Info)Mtxhbdvsdwj16/03/2025 11:30 AM ESTHospital Encounter [facility] [address] [place] [address] Franki Zimmerman MD [address] [facility] [place] [address] Atrial flutter, unspecified type (CMS/HCC)06/09/2025 11:30 AM EST - 06/09/2025 1:30 PM ESTSurgery [facility] [address] [place] [address] Franki Zimmerman MD [address] [place] [address] Ablation atrial flutter [90293 (CPT??)]documented as of this encounter Visit Diagnoses Diagnosis Atrial flutter, unspecified type (CMS/HCC)- Primary Atrial flutter, unspecified type (CMS/HCC) Atrial flutter, unspecified type (CMS/HCC) documented in this encounter Care Teams Team MemberRelationshipSpecialtyStart DateEnd Date Mason Johnson MD [address] [place] [address] PCP - GeneralInternal Mhejokiy67/22/25documented as of this encounter
--- OUTSIDE RECORDS SUMMARY | 2025-05-19 06:54 | XMS_ITS | Encounter Summary ---
Author Organization [facility] Address [address] [place] [address] Care Team Providers Care Purchasing/Receiving Name Role Phone Mason Johnson MD Primary Care Provider [phone] Reason for Visit * ReasonOnset DateCommentsError (VOID this visit)05/13/2025 Encounter Details DateTypeDepartmentCare Team (Latest Contact Info)Liroukkikxw24/06/2025Telephone [facility] [address] [place] [address] Michelle Magaña MA Error (VOID this visit) Social History Tobacco UseTypesPacks/DayYears UsedDateSmoking Tobacco: NeverSmokeless Tobacco: NeverAlcohol UseStandard Drinks/WeekCommentsYes0 (1 standard drink = 0.6 oz pure alcohol)2 bottles of beer per daySex and Gender InformationValueDate RecordedSex Assigned at QdwfqBcuj17/04/2025 2:10 PM ESTLegal HvfTsfd5201/03/2022 10:06 PM EDT Gender HeykojokBcqs85/04/2025 2:10 PM ESTSexual OrientationHeterosexual or Iyfskpiv07/04/2025 2:10 PM ESTdocumented as of this encounter Plan of Treatment DateTypeDepartmentCare Team (Latest Contact Info)Jasvmgeybdc80/03/2025 11:30 AM ESTHospital Encounter [email or web address] [address] [facility] [place] [address] Franki Zimmerman MD [address] [place] [address] Atrial flutter, unspecified type (CMS/HCC)06/09/2025 11:30 AM EST - 06/09/2025 1:30 PM ESTSurgery [facility] [[email or web address] [address] [place] [address] Franki Zimmerman MD [address] [facility] [place] [address] Ablation atrial flutter [23694 (CPT??)]documented as of this encounter Visit Diagnoses Not on filedocumented in this encounter Care Teams Team MemberRelationshipSpecialtyStart DateEnd Date Mason Johnson MD [address] [facility] [address] [place] [address] PCP - GeneralInternal Pvbrvttg39/22/25documented as of this encounter
--- OUTSIDE RECORDS SUMMARY | 2025-05-19 06:54 | XMS_ITS | Encounter Summary ---
Author Organization [facility] Address [address] [place] [address] Care Team Providers Care Rn Midwife Name Role Phone Mason Johnson MD Primary Care Provider [phone] Mason Johnson MD Unavailable [phone] Encounter Details DateTypeDepartmentCare Team (Latest Contact Info)Paruyshrtml93/03/2025Telephone [facility] [place] [facility] [address] [place] [address] Elodia Parker LPN [address] [place] [address] Social History Tobacco UseTypesPacks/DayYears UsedDateSmoking Tobacco: NeverPassive [...] or organizations such as spiritism groups, unions, fraNeedly or athletic groups, or school groups?No 06/10/2023How often do you attend meetings of the clubs or organizations you belong to?Never06/10/2023re you , , , , never , or living with a partner?Rphsjtt0506/10/2023UDIT-CAnswerDate RecordedQ1: How often do you have a drink containing alcohol?4 or more times a week 07/29/2023verage Number of DrinksNot on file07/29/2023Frequency of Binge DrinkingNot on file07/29/2023Overall Financial Resource Strain (CARDIA)Answer Date RecordedHow hard is it for you to pay for the very basics like food, housing, medical care, and heating?Very hard06/10/2023HQ-2AnswerDate Recorded Patient Health Questionnaire-2 Xmqlv973Finshriners hospitals for children [place] of Occupational Health - Occupational Stress QuestionnaireAnswerDate [...] RecordedSex Assigned at BirthNot on file Legal DxkAqfi9009/19/2022 7:58 PM EDTGender IdentityNot on fileSexual Orientation Not on filedocumented as of this encounter Miscellaneous Notes * Telephone Encounter - Elodia Parker LPN - 05/10/2025 2:12 PM EST Pt informed. * Telephone Encounter - Elodia Parker LPN - 05/10/2025 9:40 AM EST Pt LM on VM that he went to the hospital to have his stress test done and they did not do the stress test d/t they found him to have Afib and started him on Eliquis. I did call for the records to be sent here. His question is should he still be taking the baby ASA and celebrex. documented in this encounter Plan of Treatment DateTypeDepartmentCare Team (Latest Contact Info)Tpmgalbpojx16/17/2025 11:45 AM ESTOffice Visit [facility] [place] [facility] [address] [place] [address] Mason Johnson MD [address] [place] [address] 05/25/2025 9:20 AM ESTOffice Visit [facility] [place] [facility] [address] [place] [address] Hilda Mayte A, BINITROTOLUENE OPERATOR-MEN'S BASKETBALL COACH [address] [place] [address] 07/20/2025 8:30 AM ESTOffice Visit [facility] [place] [facility] [address] [place] [address] Leela Schwartz MD [address] [place] [address] documented as of this encounter Visit Diagnoses Not on filedocumented in this encounter Additional Health Concerns AssessmentNoted TimePHQ-9 Depression Total Score: 5:03 PM EST documented as of this encounter Care Teams Team MemberRelationshipSpecialtyStart DateEnd Date Mason Johnson MD [address] [place] [address] PCP - GeneralInternal Ewxaakgk45/11/24 Mason Johnson MD [address] [place] [address] PCP - Medical [place]07/08/2511documented as of this encounter
--- OUTSIDE RECORDS SUMMARY | 2025-05-19 06:54 | XMS_ITS ---
Author Organization [facility] Address [facility] [place] [id number] Care Team Providers Care Flat Polisher Name Role Phone Juliet Tiradomart EVERETT Unavailable [phone] John Valladares MD Unavailable [phone] Natalie Cadena APRN.HEMODIALYSIS PATIENT CARE SPECIALIST Unavailable [phone] Yordan Randolph MD Unavailable [phone] Marysol Purvis NITRATOR OPERATOR Unavailable Unavailable Alex OLIVAS MD, Mason Regan Primary Care Provider [phone] Active Problems ProblemNoted DateDiagnosed DateDisorder of carbohydrate aqiwfamvsl71/07/2023 Stage 3 chronic kidney disease, unspecified whether stage 3a or 3b CKD2022 Cancer of the base of esaedn9608/21/2022olon eoogkc8211/19/2012 Current Treatment and Therapy Plans No current [...]
--- OUTSIDE RECORDS SUMMARY | 2025-05-19 06:54 | XMS_ITS | Clinical Summary ---
Author Organization [facility] Address [address] [place] [address] Care Team Providers Care Patrol Commander Name Role Phone Mason Johnson MD Primary Care Provider [phone] Allergies Active AllergyReactionsCriticalityNoted DaabJwvyohzlQvlfjsl-Pte-Iqp Reductase UippwrsomzTndyg31/04/2023 Medications MedicationSigDispense QuantityRefillsLast FilledStart DateEnd DateStatus Eliquis 5 mg tablet Take 5 mg by mouth twice a day.5Active fenofibrate micronized (Lofibra) 134 mg capsule Take 134 mg by mouth in the morning.03/02/2016Active metFORMIN (Glucophage) 500 mg tablet Take 500 mg by mouth in the morning.5Active metoprolol succinate XL (Toprol-XL) 25 mg 24 hr tablet Take 25 mg by mouth in the morning.2Active tiZANidine (Zanaflex) 4 mg tablet Take 4 mg by mouth two times daily.04/21/2025tive traMADol (Ultram) 50 mg tablet Take 50 mg by mouth every 6 (six) hours if needed.5Active multivitamin tablet Take 1 tablet by mouth in the morning.Active omeprazole OTC (PriLOSEC OTC) 20 mg EC tablet Take 20 mg by mouth every other day. Do not crush, chew, or split.Active Active Problems ProblemNoted DateDiagnosed DateBMI 29.0-29.9,adult05/11/2025rteriosclerotic cardiovascular kxxears7005/11/2025Disorder of aledixuw33/04/2025History of colonic jnkamx4905/11/2025History of malignant neoplasm of colon05/11/2025 Jzbmnjmytygjyhaajozt45/04/2025Raynaud's moffbfik86/04/2025Vitamin D deficiency 05/11/2025trial jhsnyiu2305/11/2025History of heart artery stent04/30/2025 Pseudogout involving multiple vunfzu9303/26/2025Primary osteoarthritis of left hip 10/26/2024Spondylosis of cervical region without myelopathy or radiculopathy 10/26/2024losed dislocation of right acromioclavicular joint10/16/2024Throat ptyrsb4612/04/2023Neck muscle spasm11/20/2023Encounter for Medicare annual wellness exam06/10/2023isorder of carbohydrate /07/2023Facial avxino8701/21/2023ontrolled type 2 diabetes mellitus with stage 2 chronic kidney disease, without long-term current use of uskiuak1201/15/2023iastasis recti 01/15/2023ERD (gastroesophageal reflux disease)01/15/2023History of WI (myocardial infarction)01/15/2023HTN (hypertension)01/15/2023NASH (nonalcoholic steatohepatitis)01/15/2023Metastatic cancer to cervical lymph nodes12/15/2022 Stage 2 chronic kidney cbwuepa3711/01/2022hemotherapy-induced neutropenia 10/19/2022Malignant neoplasm of base of zhzxaq3108/21/2022 Overview (05/11/2025): Diagnosed 07/31/22. Diffusely p16 positive poorly differentiated SCCA. CT shows >5 cm tongue basemass and multiple morphologically abnormal, but normal sized LN in LT zone 2. Radiation completed 10/22/22. Monthly checks began 11/2022. Colon twcdxe2811/19/2012 Encounters DateTypeDepartmentCare XkmgBrvokduyrgw45/06/2025Orders Only [facility] [address] [place] [address] Sangita Pack MA Atrial flutter, unspecified type (CMS/HCC) (Primary Dx)05/13/2025Telephone [facility] [address] [place] [address] Michelle Magaña MA Error (VOID this visit)05/12/20252811Whdxuu72/04/2025 2:15 PM ESTOffice Visit [facility] [address] [place] [facility] [place] [address] Franki Zimmerman MD Pre-op evaluation (Primary Dx); Coronary artery disease, unspecified vessel or lesion type, unspecified whether angina present, unspecified whether havasupai or transplanted heart; Atypical atrial flutter (CMS/HCC)05/11/2025Orders Only [facility] [address] [place] [facility] [place] [address] Sangita Pack MA Atrial flutter, unspecified type (CMS/HCC) (Primary Dx)from Last 3 Months Family History RelationNameStatusCommentsFatherUnknownMotherUnknown Social History Tobacco UseTypesPacks/DayYears UsedDateSmoking Tobacco: NeverSmokeless Tobacco: Never Tobacco Cessation:Counseling Given: Not Answered Alcohol UseStandard Drinks/WeekCommentsYes0 (1 standard drink = 0.6 oz pure alcohol)2 bottles of beer per daySex and Gender InformationValueDate RecordedSex Assigned at CpdikTzuu80/04/2025 2:10 PM ESTLegal BdlFrnz9601/03/2022 10:06 PM EDT Gender VknavhwhIsxh70/04/2025 2:10 PM ESTSexual OrientationHeterosexual or Zwyvrnvn37/04/2025 2:10 PM EST Last Filed Vital Signs Vital SignReadingTime TakenCommentsBlood Wzmarrfp974/7905/11/2025 2:45 PM EST Ysiiw825205/11/2025 2:45 PM ESTTemperature--Respiratory Rate--Oxygen Dbrmjlrpkq86% 05/11/2025 2:45 PM ESTInhaled Oxygen Concentration--Jgxmyw45 kg (194 lb) 05/11/2025 2:45 PM JPCLeigih352.2 cm (5' 7 )05/11/2025 2:45 PM ESTBody Mass Index30.38107/11/2024 2:45 PM EST Plan of Treatment DateTypeDepartmentCare Team (Latest Contact Info)Naeugrsxyyl52/03/2025 11:30 AM ESTHospital Encounter [facility] [address] [place] [address] Franki Zimmerman MD [address] [place] [address] Atrial flutter, unspecified type (CMS/HCC)06/09/2025 11:30 AM EST - 06/09/2025 1:30 PM ESTSurgery [facility] [address] [place] [address] Franki Zimmerman MD [address] [place] [address] Ablation atrial flutter [53001 (CPT??)]Health MaintenanceDue DateLast Done CommentsDiabetes: Hemoglobin A1C1943Medicare Annual Wellness (AWV) 1943Meningococcal Vaccine (1 - Risk 2-dose series)10/31/1945Diabetes: Retinopathy Kknmyzpbe44/26/1954Meningococcal B Vaccine (1 of 4 - Increased Risk) 4Depression Asjdvgfzu44/26/1956Pneumococcal Vaccine: 50+ Years (1 of 2 - PCV)10/31/1962Zoster Vaccines (1 of 2)10/31/1962Adult Uwrsjmy8010/31/1965Fall Risk Wuvqqwmrh39/26/2009COVID-19 Vaccine (3 - Moderna risk series)10/04/2020 09/06/2020, 08/09/2020Influenza Vaccine (#1)501/02/2025, 06/20/2023, 05/03/2022, Additional history existsDiabetes: Urine Protein Nsgpaidid76/19/2026 03/26/2025HIB VaccinesAged OutNo longer eligible based on patient's age to complete this topicHPV VaccinesAged OutNo longer eligible based on patient's age to complete this topicIPV VaccinesAged OutNo longer eligible based on patient's age to complete this topicRotavirus VaccinesAged OutNo longer eligible based on patient's age to complete this topic Insurance * Guarantor: Manish Root DAccount TypeRelation to PatientDate of BirthPhone Billing AddressPersonal/NwvoyuLtdo38/[birth year][address] [address] Care Teams Team MemberRelationshipSpecialtyStart DateEnd Date Mason Johnson MD [address] [facility] [address] [place] [address] PCP - GeneralInternal Vgjlnvxw76/22/25
--- OUTSIDE RECORDS SUMMARY | 2025-05-19 06:54 | XMS_ITS | Encounter Summary ---
Author Organization [facility] Address [address] [place] [address] Care Team Providers Care Analysis Mgr Name Role Phone Mason Johnson MD Primary Care Provider [phone] Mason Johnson MD Unavailable [phone] Encounter Details DateTypeDepartmentCare Team (Latest Contact Info)Jookchawiwp88/03/2025Abstract [facility] [place] [facility] [address] [facility] [address] [place] [address] Mason Johnson MD [address] [facility] [address] [place], [place] [id number] Social History Tobacco UseTypesPacks/DayYears UsedDateSmoking Tobacco: NeverPassive [...] times a week06/10/2023How often do you attend denominational or protestant services?Never06/10/2023o you belong to any clubs or organizations such as denominational groups, unions, fraternal or athletic groups, or school groups?No 06/10/2023How often do you attend meetings of the clubs or organizations you belong to?Never06/10/2023re you , , , , never , or living with a partner?Sisproq1006/10/2023UDIT-CAnswerDate RecordedQ1: How often do you have a drink containing alcohol?4 or more times a week 07/29/2023verage Number of DrinksNot on file07/29/2023Frequency of Binge DrinkingNot on file07/29/2023Overall Financial Resource Strain (CARDIA)Answer Date RecordedHow hard is it for you to pay for the very basics like food, housing, medical care, and heating?Very hard06/10/2023HQ-2AnswerDate Recorded Patient Health Questionnaire-2 Juwsr131Finbeaver valley hospital [place] of Occup[facility] - Occupational Stress QuestionnaireAnswerDate [...] RecordedSex Assigned at BirthNot on file Legal UzxEvvf8209/19/2022 7:58 PM EDTGender IdentityNot on fileSexual Orientation Not on filedocumented as of this encounter Plan of Treatment DateTypeDepartmentCare Team (Latest Contact Info)Cbjykzgfslu04/17/2025 11:45 AM ESTOffice Visit [facility] [place] [facility] [address] [facility] [address] [place] [phone] Mason Johnson MD [address] [facility] [address] [place] [address] 05/25/2025 9:20 AM ESTOffice Visit [facility] [address] [place] [address] Mayte Stevens, LOAN PROCESSOR-EARLY CHILDHOOD EDUCATION INSTRUCTOR [address] [place] [address] 07/20/2025 8:30 AM ESTOffice Visit [facility] [address] [facility] [address] [place] [phone] Leela Schwartz MD [address] [facility] [address] [place], [place] [phone] documented as of this encounter Visit Diagnoses Not on filedocumented in this encounter Additional Health Concerns AssessmentNoted TimePHQ-9 Depression Total Score: 5:03 PM EST documented as of this encounter Care Teams Team MemberRelationshipSpecialtyStart DateEnd Date Mason Johnson MD [address] [place], [place] [address] PCP - GeneralInternal Jankgynf51/11/24 Mason Johnson MD [address] [place] [address] PCP - Medical Ryegate MA07/08/2511documented as of this encounter
--- OUTSIDE RECORDS SUMMARY | 2025-05-19 06:54 | XMS_ITS | Clinical Summary ---
Author Organization [facility] Address [address] [place], [place] [address] Care Team Providers Care Sole Stainer Name Role Phone Christopher Tiradodavid EVERETT Unavailable [phone] John Valladares MD Unavailable [phone] Natalie Cadena APRN.ACCESS REP Unavailable [phone] Yordan Randolph MD Unavailable [phone] Marysol Purvis PAPER GOODS MACHINE OPERATOR Unavailable Unavailable Alex OLIVAS MD, Daniel B Primary Care Provider [phone] Allergies Active AllergyReactionsCriticalityNoted HakmMgqtromkMmrehnz-Aab-Kqv Reductase InhibitorsGI Upset06/10/2023 Medications MedicationSigDispense QuantityRefillsLast FilledStart DateEnd DateStatus Aspirin 81 mg tab 81 mg every other day.Active fenofibrate (LOFIBRA) 134 mg capsule Take 134 mg by mouth once daily.03/02/2016Active ergocalciferol 50,000 unit capsule (VITAMIN D2, DRISDOL) TAKE 1 CAPSULE BY MOUTH TBGMLS7907/05/2022ctive metFORMIN (GLUCOPHAGE) 500 mg tablet Take 500 mg by mouth once daily.06/12/2022ctive metoprolol succinate ER (TOPROL XL) 25 mg 24 hr tablet Take 25 mg by mouth once daily.06/12/2022ctive latanoprost (XALATAN) 0.005 % ophthalmic solution instill 1 (ONE) DROP IN BOTH EYES AT QGQPUZZ8005/01/2023ctive cholecalciferol, Vitamin D3, (VITAMIN D3) 1,250 mcg [...] contrast administration guidelines link. 1 each Expired iv contrast (will be provided with radiology [...] theCT contrast administration guidelines link. 1 each Expired Active Problems ProblemNoted DateDiagnosed DateDisorder of carbohydrate tvqjazlwck93/07/2023 Stage 3 chronic kidney disease, unspecified whether stage 3a or 3b CKD2022 Cancer of the base of fddixb2208/21/2022olon yvqgdh7711/19/2012 Resolved Problems ProblemNoted DateDiagnosed DateResolved DateChemotherapy-induced neutropenia /Overlapping malignant neoplasm of colon Encounters DateTypeDepartmentCare CnlqMmkqugppqow68/30/2025 10:30 AM EDTOffice Visit Radiation Oncology [address] [facility] [facility] [place] [address] Yordan Randolph MD Head and neck cancer (HCC) (Primary Dx); Acquired talbrxceqwnhrh71/30/2025 10:00 AM EDTVisit (SP) Office Hematology/Oncology [address] 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) [...] FLULAVAL, FLUVIRIN, FLUZONE)06/21/2015influenza (LAIV) vaccine, nasal, unspecified bgyqmmioook77/27/2022influenza (aIIV4) vaccine, age 65+ yr, quadrivalent, PF (FLUAD QUAD)06/20/2023,05/03/2022,06/15/2021influenza (ccIIV4) vaccine, age 6+ mo, quadrivalent, PF (FLUCELVAX)06/24/2018novel influenza (E4M0-56) vaccine, PF 06/20/2009 Social History Tobacco UseTypesPacks/DayYears UsedDateSmoking Tobacco: NeverPassive Smoke Exposure: NeverSmokeless Tobacco: Never Tobacco Cessation:Counseling Given: Not Answered Alcohol UseStandard Drinks/WeekCommentsYes0 (1 standard drink = 0.6 oz pure alcohol)daily 3 beersPHQ-2AnswerDate RecordedPHQ-2 zlfld695rea Deprivation IndexAnswerDate RecordedNational Score (1-100), lower number is lower naxu060711/07/2022State Score (1-10), lower number is lower zisp655 Data from: https://www.neighborhoodatlas.medicine.[facility].edu/. Last address used for [address] [place] [address]/07/2022Sex and Gender InformationValueDate RecordedSex Assigned at BirthNot on fileLegal BnoRlah62/02/2012 10:15 AM EST Gender IdentityNot on fileSexual OrientationNot on file Last Filed Vital Signs Vital SignReadingTime TakenCommentsBlood Izltjnvk484/5305/06/2025 10:08 AM EDT Yehim609605/06/2025 10:08 AM BWIEzmurkzfhau17.6 ??C (97.8 ??F)05/06/2025 10:08 AM EDTRespiratory Txnt7661 10:08 AM EDTOxygen Ppepmfkzfw96%05/06/2025 10:08 AM EDTInhaled Oxygen Concentration--Insmpf96.8 kg (200 lb 2.8 oz)05/06/2025 10:08 AM NUGUptvlq753.9 cm (5' 5.71 )05/06/2025 10:08 AM EDTBody Mass Index32.6 05/06/2025 10:08 AM EDT Plan of Treatment DateTypeDepartmentCare Team (Latest Contact Info)Hxhoymnpzgp71/22/2026 8:15 AM EDTAppointment Radiology Pet CT [address] [place] [address] [place] [address] CT Chest and neck with lzwcrhny60/29/2026 10:00 AM EDTOffice Visit Radiation Oncology [address] [place] [address] [place] [address] Yordan Radnolph MD [address] [place] [address] [place] [address] 1 year follow up05/05/2026 10:40 AM EDTVisit (SP) Office Hematology/Oncology [address] [place] [address] [place] [address] John Valladares MD [address] [facility] [place] [address] 1 year follow up for lab and ct scan resultsHealth MaintenanceDue DateLast Done CommentsAnxiety Gspqbuvhd87/26/1962Depression Odfietula06/26/1962DTaP,Tdap,Td Vaccine (1 - Tdap)10/31/1962Pneumococcal Vaccine: 50+ (1 of 1 - PCV)10/31/1993 Shingrix Vaccine (1 of 2)10/31/1993RSV Vaccine (1 - 1-dose 75+ series)10/31/2018 Advance Directive Fmwcpezhce69/01/2025Medicare Advantage Annual Wellness Visit 5Covid-19 Vaccine ( - season)503/08/2020, 08/09/2020 Influenza Vaccine (#1)501/02/2025, 06/20/2023, 05/03/2022, Additional history existsDiabetes Ljxsmguec00, 12/09/2024, 10/28/2024, Additional history exists Procedures Procedure NamePriorityDate/TimeAssociated DiagnosisCommentsCT CHEST W IVCON Axdiaan9204/29/2025 10:27 AM EDT 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 Stage 3 chronic kidney disease, unspecified whether stage 3a or 3b CKD (HCC) CT NECK SOFT TISSUE W NOLLIRmjdpcx69/23/2025 10:27 AM EDT 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 If you are unable to reach us at the number above, please feel free to contact [facility] at [phone]. Narrative 04/29/2025 2:07 PM EDT * * [...] images: No additional findings. Procedure Note Provider, [facility] [place] - 04/29/2025 * * *Final Report* * * DATE OF EXAM: Apr 29 2025 10:27AM [facility] 0539 - CT CHEST W IVCON / [...] any questions regarding this interpretation, please call [phone]. If you are unable to reach us at the number above, please feel free to contact [facility] at [phone]. Authorizing ProviderResult TypeResult StatusVivek Abhyankar MDCT-PAMAFinal Result * CT NECK SOFT TISSUE W IVCON (04/29/2025 10:27 AM EDT)Anatomical Region LateralityModalityNeNTampa Shriners Hospital, Nuclear [facility] Hospitalpecimen (Source) Anatomical Location / LateralityCollection Method / [...] any questions regarding this interpretation, please call [phone]. If you are unable to reach us at the number above, please feel free to contact [facility] at [phone]. Narrative 04/29/2025 11:23 AM EDT * * [...] accession. Other: Not applicable. Procedure Note Provider, [facility] [place] - 04/29/2025 * * *Final Report* * * DATE OF EXAM: Apr 29 2025 10:27AM [facility] 0013 - CT NECK SOFT TISSUE W [...] any questions regarding this interpretation, please call [phone]. If you are unable to reach us at the number above, please feel free to contact [facility] at [phone]. Authorizing ProviderResult TypeResult StatusVivek Abhyankar MDCT-PAMAFinal Result * THYROID STIMULATING HORMONE (04/29/2025 9:13 AM EDT)ComponentValueRef Range Test MethodAnalysis TimePerformed AtPathologist SignatureTSH2.7600.270 - 4.200 mIU/L1 9:33 PM EDTCPROMEDICA FOSTORIA [facility]IN LABSpecimen (Source) Anatomical Location / LateralityCollection Method / VolumeCollection Time Received TimeBloodBLOOD SPECIMEN / UnknownVenipuncture / Hbpjqlv2804/29/2025 9:13 AM EDT1 9:22 AM EDT Narrative Authorizing ProviderResult TypeResult StatusG Jeyson Randolph MDLABORATORYFinal ResultPerforming OrganizationAddressCity/State/ZIP CodePhone Number [facility] [address] * (ABNORMAL) COMPREHENSIVE METABOLIC PANEL (04/29/2025 9:13 AM EDT)Component ValueRef RangeTest MethodAnalysis TimePerformed AtPathologist Signature Protein, Total7.16.3 - 8.0 g/dL04/29/2025 9:56 AM EDTNORTBEAUMONT HOSPITAL LABAlbumin4.23.9 - 4.9 g/dL04/29/2025 9:56 AM EDTNORTBEAUMONT HOSPITAL LABCalcium, Total10.28.5 - 10.2 mg/dL04/29/2025 9:56 AM EDTNORTBEAUMONT HOSPITAL LABBilirubin, Total0.50.2 - 1.3 mg/dL 04/29/2025 9:56 AM EDTNORTBEAUMONT HOSPITAL LABAlkaline Xfrqnyjlzcw5119 - 113 U/L1 9:56 AM EDTNORTBEAUMONT HOSPITAL JCGKFU8710 - 40 U/L1 9:56 AM EDTNORTBEAUMONT HOSPITAL QAEDCX8480 - 54 U/L1 9:56 AM EDTWHEELING [facility] RMBMasxtpi689(H)74 - 99 mg/dL04/29/2025 9:56 AM EDTNOROCKEFELLER [facility] LABComment: The [place] Diabetes Association (ADA) provides guidance for cutoff [...] Standards of Medical Care in Diabetes 2016, [place] Diabetes Association. Diabetes Care. 2016.39(Suppl 1). DQQ346 - 24 mg/dL04/29/2025 9:56 AM [facility] Creatinine1.070.73 - 1.22 mg/dL04/29/2025 9:56 AM [facility] JNZHnknke498860 - 144 mmol/L1 9:56 AM [facility] LABPotassium4.53.7 - 5.1 mmol/L1 9:56 AM [facility] PDJYsfefkio16116 - 107 mmol/L1 9:56 AM EDT [facility] BBUBB37194 - 30 mmol/L1 9:56 AM T [facility] LABAnion Sdq311 - 15 mmol/L1 9:56 AM [facility] LABEstimated Glomerular Filtration Rate70 >=60 mL/min/1.73m 04/29/2025 9:56 AM [facility] LABComment:Estimated Glomerular Filtration Rate (eGFR) [...] VolumeCollection TimeReceived TimeBloodBLOOD SPECIMEN / UnknownVenipuncture / Goywmyd8304/29/2025 9:13 AM EDT1 9:22 AM EDT Narrative Authorizing ProviderResult TypeResult StatusJohn Valladares MDLABORATORYFinal ResultPerforming OrganizationAddressCity/State/ZIP CodePhone Number [facility] [address] [place] [address] * (ABNORMAL) COMPLETE BLOOD COUNT AND DIFFERENTIAL (04/29/2025 9:13 AM EDT) ComponentValueRef RangeTest MethodAnalysis TimePerformed AtPathologist SignatureWBC5.883.70 - 11.00 k/uL04/29/2025 9:25 AM EDTNORTBEAUMONT HOSPITAL LABRBC4.504.20 - 6.00 m/uL04/29/2025 9:25 AM EDTNORTBEAUMONT [facility] ZEVQiwpnttrpy38.213.0 - 17.0 g/dL04/29/2025 9:25 AM EDT [facility] JSDBfbmsynqkb25.339.0 - 51.0 %04/29/2025 9:25 AM EDTNORTBEAUMONT [facility] QGTRVW23.680.0 - 100.0 fL 04/29/2025 9:25 AM EDTNORTBEAUMONT [facility] UHGDKG10.326.0 - 34.0 pg04/29/2025 9:25 AM EDTNORTHCMUNSON [facility] KAKUQUF98.830.5 - 36.0 g/dL04/29/2025 9:25 AM EDTNORTBEAUMONT [facility] LABRDW-CV14.5 11.5 - 15.0 %04/29/2025 9:25 AM EDTNORTBEAUMONT [facility] LAB Platelet Kokct055831 - 400 k/uL04/29/2025 9:25 AM EDTNORTBEAUMONT [facility]OSPITAL LABMPV9.89.0 - 12.7 fL04/29/2025 9:25 AM EDW[facility]ING [facility] LABNeutrophils %79.1%04/29/2025 9:25 AM EDWHEELING [facility] LABAbs Neut4.661.45 - 7.50 k/uL04/29/2025 9:25 AM [facility] LABLymphocytes %9.9%04/29/2025 9:25 AM [facility] LABAbs Lymph0.58(L)1.00 - 4.00 k/uL04/29/2025 9:25 AM [facility] LABMonocytes %7.8%04/29/2025 9:25 AM EDT [facility] LABAbs Mono0.46<0.87 k/uL04/29/2025 9:25 AM [facility] LABEosinophils %1.4%04/29/2025 9:25 AM [facility] LABAbs Eosin0.08<0.46 k/uL04/29/2025 9:25 AM [facility] LABBasophils %0.9%04/29/2025 9:25 AM [facility] LABAbs Baso0.05<0.11 k/uL04/29/2025 9:25 AM [facility] LABImmature Granulocytes %0.9% 04/29/2025 9:25 AM [facility] LABAbs Immature Gran 0.05<0.10 k/uL04/29/2025 9:25 AM EDW[facility]ELING [facility] LABNRBC 0.0/100 WBC04/29/2025 9:25 AM [facility] LABAbsolute nRBC<0.01<0.01 k/uL04/29/2025 9:25 AM [facility] LABDiff AgelAthd73/23/2025 9:25 AM EDTNORTBEAUMONT [facility]OS[facility] LAB Specimen (Source)Anatomical Location / LateralityCollection Method / Volume Collection TimeReceived TimeBloodBLOOD SPECIMEN / UnknownVenipuncture / Gvwuidd3004/29/2025 9:13 AM EDT1 9:22 AM EDT Narrative Authorizing ProviderResult TypeResult StatusJohn Valladares MDLABORATORYFinal ResultPerforming OrganizationAddressCity/State/ZIP CodePhone Number [facility] [address] [facility] [place] [address] from Last 3 Months Insurance Care Teams Team MemberRelationshipSpecialtyStart DateEnd Mason Johnson II, MD [address] [place] [address] PCP - GeneralInternal Wymtrqvo05/30/[address] [facility] [place] [address] Registered DietitianNutrition08/20/22 John Valladares MD [address] [facility] [place] [address] PhysicianHematology/Oncology08/21/22 Natalie Cadena, THEATRE PROFESSOR.ACCESS REP [address] [facility] [facility] [place] [address] Nurse PractitionerHematology/Oncology08/21/22 Yordan [place] MD [address] [facility] [place] [address] PhysicianRadiation Oncology08/21/22 Marysol Purvis LSW Social Worker09/07/22
--- OUTSIDE RECORDS SUMMARY | 2025-05-19 06:54 | XMS_ITS | Encounter Summary ---
Author Organization [facility] Address [address] [place] [address] Care Team Providers Care Teradata Solution Architect Name Role Phone Mason Johnson MD Primary Care Provider [phone] Mason Johnson MD Unavailable [phone] Encounter Details DateTypeDepartmentCare Team (Latest Contact Info)Gxznllpcfbb35/03/2025Patient Outreach [facility] [address] [place] [phone] Vibha Rojo, RN [address] [facility] [address] [place] [address] Social History Tobacco UseTypesPacks/DayYears UsedDateSmoking Tobacco: NeverPassive [...] times a week06/10/2023How often do you attend baptism or alevism services?Never06/10/2023o you belong to any clubs or organizations such as baptism groups, unions, fraternal or athletic groups, or school groups?No 06/10/2023How often do you attend meetings of the clubs or organizations you belong to?Never06/10/2023re you , , , , never , or living with a partner?Sipopsq0106/10/2023UDIT-CAnswerDate RecordedQ1: How often do you have a drink containing alcohol?4 or more times a week 07/29/2023verage Number of DrinksNot on file07/29/2023Frequency of Binge DrinkingNot on file07/29/2023Overall Financial Resource Strain (CARDIA)Answer Date RecordedHow hard is it for you to pay for the very basics like food, housing, medical care, and heating?Very hard06/10/2023HQ-2AnswerDate Recorded Patient Health Questionnaire-2 Nchml794Finjordan [facility] [place] of Occupational Health - Occupational Stress QuestionnaireAnswerDate [...] RecordedSex Assigned at BirthNot on file Legal QexDyqs6409/19/2022 7:58 PM EDTGender IdentityNot on fileSexual Orientation Not on filedocumented as of this encounter Progress Notes * Vibha Rojo RN - 05/10/2025 2:28 PM EST Images from the original note were not included. Flowsheet Row Patient Outreach from 05/10/2025 in [facility] with Vibha Rojo RN Hospital Information ED, Hospital or Fci Facility Discharge? ED Patient has been contacted within 2 days of being seen in the ED Yes Diagnosis Atrial Flutter Discharge Date 05/07/25 Discharged To: Home Setting Discharge Hospital [facility] Engagement Call Start Time 1430 Admission Date 05/07/25 Medications Discharge medications reviewed and reconciled from hospital? Yes Is the patient having any side effects they believe may be caused by any medication additions or changes? No Does the patient have all medications ordered at discharge? Yes Prescription Comments Eliquis 5 mg twice daily Is the patient taking all medications as directed (includes completed medication regime)? Yes Appointments Does the patient have a primary care provider? Yes Nursing Interventions Patient declined follow up appointment w/ PCP Does the patient have any upcoming specialty appointments? Yes [Has appointment with Legal Word Processor] Nursing Interventions Advised patient to keep appointment Self Management Does patient have home health? no Patient Teaching Does the patient have access to their discharge instructions? Yes Nursing Interventions Reviewed instructions with patient What is the patient's perception of their health status since discharge? Improving Is the patient/caregiver able to teach back the hierarchy of who to call/visit for symptoms/problems? PCP, Specialist, Home Health nurse, Urgent Care, ED, 911 Yes Wrap Up Is the patient/caregiver familiar with Advance Care Planning? Yes Would the patient like more information on Advance Care Planning? No Wrap Up Additional Comments Pt presented to ER after going to have Pre-OP stress test completed. Test not done due to having Atrial Flutter without symptoms. Pt had EKG, CXR and labs in ER. Pt has appt with Cardiology. Call End Time 1446 * Vibha Rojo RN - 05/10/2025 2:28 PM EST Discussed CCM services, pt states he is able to take care of his health care needs without assistance and has his life partner. documented in this encounter Plan of Treatment DateTypeDepartmentCare Team (Latest Contact Info)Lmrksnjqfby39/17/2025 11:45 AM ESTOffice Visit [facility] [place] [facility] [address] [place] [phone] Mason Johnson MD [address] [place] [address] 05/25/2025 9:20 AM ESTOffice Visit [facility] [place] [facility] [address] [place] [address] Mayte Stevens, [place] OP-ICEBOX WORKER [address] [place] [address] 07/20/2025 8:30 AM ESTOffice Visit [facility] [place] [facility] [address] [place] [phone] Leela Schwartz MD [address] [place], [place] [phone] documented as of this encounter Visit Diagnoses Diagnosis Atrial flutter, unspecified type (HCC)- Primary History of MD (myocardial infarction) Old myocardial infarction Metastatic cancer to cervical lymph nodes (HCC) OJEDA (nonalcoholic steatohepatitis) Other chronic nonalcoholic liver disease Primary hypertension Unspecified essential hypertension documented in this encounter Additional Health Concerns AssessmentNoted TimePHQ-9 Depression Total Score: 5:03 PM EST documented as of this encounter Care Teams Team MemberRelationshipSpecialtyStart DateEnd Date Mason Johnson MD [address] [place] [address] PCP - GeneralInternal Hbgauvkk31/11/24 Mason Johnson MD [address] [facility] [address] [place] [address] PCP - Medical [place]07/08/2511documented as of this encounter
--- OUTSIDE RECORDS SUMMARY | 2025-05-19 06:54 | XMS_ITS | Encounter Summary ---
Author Organization [facility] Address [address] [place] [address] Care Team Providers Care Grill Cook Name Role Phone Juliet Tiradomart EVERETT Unavailable [phone] John Valladares MD Unavailable [phone] Natalie Cadena APRN.QUALITY IMPROVEMENT SPECIALIST Unavailable [phone] Yordan Randolph MD Unavailable [phone] Marysol Purvis POTTERY KILN BUILDER Unavailable Unavailable Alex OLIVAS MD, Mason Regan Primary Care Provider [phone] Source Comments In the event this information is protected by the Federal Confidentiality of Alcohol and Drug AbusePatient Records regulations: The Federal rules restrict any use of the information to criminally investigate or prosecute any alcohol or drug abuse patient.[facility] Encounter Details DateTypeDepartmentCare Team (Latest Contact Info)Ysvamnvgsab45/30/2025Travel Social History Tobacco UseTypesPacks/DayYears UsedDateSmoking Tobacco: NeverPassive Smoke Exposure: NeverSmokeless Tobacco: NeverAlcohol UseStandard Drinks/WeekComments Yes0 (1 standard drink = 0.6 oz pure alcohol)daily 3 beersPHQ-2AnswerDate RecordedPHQ-2 afqbh958rea Deprivation IndexAnswerDate RecordedNational Score (1-100), lower number is lower qnjc157311/07/2022State Score (1-10), lower number is lower awgd662/03/2023Data from: https://www.neighborhoodatlas.[facility]/. Last address used for [address] [place] [address]/07/2022Sex and Gender InformationValueDate Recorded Sex Assigned at BirthNot on fileLegal KyiQyus87/02/2012 10:15 AM ESTGender IdentityNot on fileSexual OrientationNot on filedocumented as of this encounter Functional Status * Are you deaf or do you have serious difficulty hearing?AnswerDate of MzxvopgeynMvmmgrQa82/23/2014 11:20 AM Jasmyn Anthony * Are you blind or do you have serious difficulty seeing, even when wearing glasses?AnswerDate of YlxkhfztkaOlzhfqQw12/23/2014 11:20 AM Jasmyn Anthony * Do you have serious difficulty walking or climbing stairs?AnswerDate of CgdqqoulioWlgxmsPa81/23/2014 11:20 AM Jasmyn Anthony * Do you have difficulty dressing or bathing?AnswerDate of AssessmentAuthorNo 04/29/2014 11:20 AM Jasmyn Anthony * Because of a physical, mental, or emotional condition, do you have difficulty doing errands alone such as visiting a doctor's office or shopping?AnswerDate of XvbwrrmdycNxqmsmXh47/23/2014 11:20 AM Jasmyn Anthony documented as of this encounter Mental Status * Because of a physical, mental, or emotional condition, do you have serious difficulty concentrating, remembering, or making decisions?AnswerEntry Date ZtcxaoRx08/23/2014 11:20 AM Jasmyn Anthony documented in this encounter Plan of Treatment DateTypeDepartmentCare Team (Latest Contact Info)Vpstgxqgyzk10/22/2026 8:15 AM EDTAppointment Radiology Pet CT [address] [facility] [place] [address] CT Chest and neck with hqepcsmy57/29/2026 10:00 AM EDTOffice Visit Radiation Oncology [address] [facility] [place] [address] Yordan Randolph MD [address] [facility] [place] [address] 1 year follow up05/05/2026 10:40 AM EDTVisit (SP) Office Hematology/Oncology [address] [place] [address] John Valladares MD [address] [place] [address] 1 year follow up for lab and ct scan resultsdocumented as of this encounter Visit Diagnoses Not on filedocumented in this encounter Care Teams Team MemberRelationshipSpecialtyStart DateEnd Date Mason Johnson II, MD [address] [place] [address] PCP - GeneralInternal Jauwiiya04/30/[address] [facility] [place] [address] Registered DietitianNutrition08/20/22 John Valladares MD [address] [place] [address] [place] [address] PhysicianHematology/Oncology08/21/22 Natalie Cadena APRN.QUALITY IMPROVEMENT SPECIALIST [address] [place] [place] [address] Nurse PractitionerHematology/Oncology08/21/22 Yordan Randolph MD [address] [place] [address] [place] [address] PhysicianRadiation Oncology08/21/22 Marysol Purvis LSW Social Worker09/07/22documented as of this encounter
--- OUTSIDE RECORDS SUMMARY | 2025-05-19 06:54 | XMS_ITS | Encounter Summary ---
Author Organization [facility] Address [address] [place] [address] Care Team Providers Care Make Up Arranger Name Role Phone Mason Johnson MD Primary Care Provider [phone] Mason Johnson MD Unavailable [phone] Encounter Details DateTypeDepartmentCare Team (Latest Contact Info)Cinifyqbogm83/04/2025bstract [facility] [place] [facility] [address] [facility] [address] [place] [address] Mason Johnson MD [address] [facility] [address] [place], [place] [phone] Social History Tobacco UseTypesPacks/DayYears UsedDateSmoking Tobacco: NeverPassive [...] times a week06/10/2023How often do you attend confucianist or roman catholic services?Never06/10/2023o you belong to any clubs or organizations such as confucianist groups, unions, fraternal or athletic groups, or school groups?No 06/10/2023How often do you attend meetings of the clubs or organizations you belong to?Never06/10/2023re you , , , , never , or living with a partner?Xyybwpa2506/10/2023UDIT-CAnswerDate RecordedQ1: How often do you have a drink containing alcohol?4 or more times a week 07/29/2023verage Number of DrinksNot on file07/29/2023Frequency of Binge DrinkingNot on file07/29/2023Overall Financial Resource Strain (CARDIA)Answer Date RecordedHow hard is it for you to pay for the very basics like food, housing, medical care, and heating?Very hard06/10/2023HQ-2AnswerDate Recorded Patient Health Questionnaire-2 Wvjkg841Fincentral valley medical center [place] of Occupational Health - Occupational Stress QuestionnaireAnswerDate [...] RecordedSex Assigned at BirthNot on file Legal ZtjAtau8309/19/2022 7:58 PM EDTGender IdentityNot on fileSexual Orientation Not on filedocumented as of this encounter Plan of Treatment DateTypeDepartmentCare Team (Latest Contact Info)Cglrnfertcm52/17/2025 11:45 AM ESTOffice Visit [facility] [place] [facility] [address] [facility] [address] [place] [phone] Mason Johnson MD [address] [facility] [address] [place] [address] 05/25/2025 9:20 AM ESTOffice Visit [facility] [address] [place] [address] Mayte Stevens, NEW ACCOUNTS REPRESENTATIVE-BONDED STRUCTURES REPAIRER [address] [place] [address] 07/20/2025 8:30 AM ESTOffice Visit [facility] [address] [facility] [address] [place] [address] Leela Schwartz MD [address] [facility] [address] [place], [place] [phone] documented as of this encounter Visit Diagnoses Not on filedocumented in this encounter Additional Health Concerns AssessmentNoted TimePHQ-9 Depression Total Score: 5:03 PM EST documented as of this encounter Care Teams Team MemberRelationshipSpecialtyStart DateEnd Date Mason Johnson MD [address] [place], [place] [address] PCP - GeneralInternal Axyoeqdj26/11/24 Mason Johnson MD [address] [place] [address] PCP - Medical [place]07/08/2511documented as of this encounter
--- OUTSIDE RECORDS SUMMARY | 2025-05-19 06:54 | XMS_ITS | Patient Health Record ---
Author Organization [facility] Address [address] [place] [address] Care Team Providers Care Sole Polisher Name Role Phone SHAIKH ASHBY Primary Care Provider Unavailabl e Reason For Referral No Information Problems Problem Type SNOMED Code ICD Code Onset Dates Problem Status W/U Status Risk Notes Problem Closed traumatic dis location acromioclavicular joint (009869145) Separation of right acromioclavicular joint, initial encounter (S43.101A) ActiveconfirmedProblemClosed traumatic dislocation acromioclavicular joint (952222911)Closed dislocation of right acromioclavicular joint, initial encounter (S43.101A)Activeconfirmed Plan Of Treatment No Information Insurance Providers Payer Name Payer Address Payer Phone Subscriber Number Group Number Insured Name Patient Relationship to Insured Coverage Start Date Coverage End Date [employer] [address] [address] [place] [address] [phone] [id number] Sj RIVERA - patient is the insuredAet Life Medicare SupplementPO B[address] [address] [place] [id number], VERNONSelf - patient is the insured Medical (General) History Medical History History ICD Code Cancer Heart AttackDiabetesHigh Blood Pressure
--- OUTSIDE RECORDS SUMMARY | 2025-05-19 06:54 | XMS_ITS | Encounter Summary ---
Author Organization [facility] Address [address] [place] [address] Care Team Providers Care Unit Trust Manager Name Role Phone Mason Johnson MD Primary Care Provider [phone] Mason Johnson MD Unavailable [phone] Encounter Details DateTypeDepartmentCare Team (Latest Contact Info)Dudngluqkka49/06/2025Abstract [facility] [place] [facility] [address] [facility] [address] [place] [address] Mason Johnson MD [address] [facility] [address] [place], [place] [address] Social History Tobacco UseTypesPacks/DayYears UsedDateSmoking Tobacco: NeverPassive [...] times a week06/10/2023How often do you attend congregational or taoist services?Never06/10/2023o you belong to any clubs or organizations such as congregational groups, unions, fraternal or athletic groups, or school groups?No 06/10/2023How often do you attend meetings of the clubs or organizations you belong to?Never06/10/2023re you , , , , never , or living with a partner?Egaxiep5006/10/2023UDIT-CAnswerDate RecordedQ1: How often do you have a drink containing alcohol?4 or more times a week 07/29/2023verage Number of DrinksNot on file07/29/2023Frequency of Binge DrinkingNot on file07/29/2023Overall Financial Resource Strain (CARDIA)Answer Date RecordedHow hard is it for you to pay for the very basics like food, housing, medical care, and heating?Very hard06/10/2023HQ-2AnswerDate Recorded Patient Health Questionnaire-2 Cwdeb441Finsteward health care system [place] of Occupational Health - Occupational Stress QuestionnaireAnswerDate [...] RecordedSex Assigned at BirthNot on file Legal PvqMyaw5609/19/2022 7:58 PM EDTGender IdentityNot on fileSexual Orientation Not on filedocumented as of this encounter Plan of Treatment DateTypeDepartmentCare Team (Latest Contact Info)Onpaqhyuygz07/17/2025 11:45 AM ESTOffice Visit [facility] [place] [facility] [address] [facility] [address] [place] [phone] Mason Johnson MD [address] [facility] [address] [place] [address] 05/25/2025 9:20 AM ESTOffice Visit [facility] [address] [place] [address] Mayte Stevens, METAL BED ASSEMBLER-INDUSTRIAL SALES ENGINEER [address] [place] [address] 07/20/2025 8:30 AM ESTOffice Visit [facility] [address] [facility] [address] [place] [phone] Leela Schwartz MD [address] [facility] [address] [place], [place] [phone] documented as of this encounter Visit Diagnoses Not on filedocumented in this encounter Additional Health Concerns AssessmentNoted TimePHQ-9 Depression Total Score: 5:03 PM EST documented as of this encounter Care Teams Team MemberRelationshipSpecialtyStart DateEnd Date Mason Johnson MD [address] [place], [place] [phone] PCP - GeneralInternal Nwpobseo02/11/24 Mason Johnson MD [address] [place] [address] PCP - Medical [place]07/08/2511documented as of this encounter
--- OUTSIDE RECORDS SUMMARY | 2025-05-19 06:54 | XMS_ITS | Encounter Summary ---
Author Organization [facility] Address [address] [place] [place] [address] Care Team Providers Care Juvenile Justice Officer Name Role Phone Mason Johnson MD Primary Care Provider [phone] Reason for Referral * Consultation (Routine) - Pending ReviewSpecialtyDiagnoses / ProceduresReferred By ContactReferred To ContactCardiology Diagnoses Atrial flutter, unspecified type (CMS/HCC) Procedures PA OFFICE/OUTPATIENT [facility] 60 MINUTES Franki Zimmerman MD [address] [place] [address] Phone: tel: fax: Referral IDStatusReasonStart DateExpiration DateVisits RequestedVisits [id number] Review Specialty Services Required Encounter Details DateTypeDepartmentCare Team (Latest Contact Info)Sxruauogomk53/06/2025Orders Only [facility] [address] [place] [address] Sangita Pack MA Atrial flutter, unspecified type (CMS/HCC) (Primary Dx) Social History Tobacco UseTypesPacks/DayYears UsedDateSmoking Tobacco: NeverSmokeless Tobacco: NeverAlcohol UseStandard Drinks/WeekCommentsYes0 (1 standard drink = 0.6 oz pure alcohol)2 bottles of beer per daySex and Gender InformationValueDate RecordedSex Assigned at XhbfpFdzu61/04/2025 2:10 PM ESTLegal XauZnhv6501/03/2022 10:06 PM EDT Gender MepcovjvFlee64/04/2025 2:10 PM ESTSexual OrientationHeterosexual or Hchglsaw14/04/2025 2:10 PM ESTdocumented as of this encounter Plan of Treatment DateTypeDepartmentCare Team (Latest Contact Info)Vrbjswgshqh52/03/2025 11:30 AM ESTHospital Encounter [facility] [address] [place] [address] Franki Zimmerman MD [address] [place] [address] Atrial flutter, unspecified type (CMS/HCC)06/09/2025 11:30 AM EST - 06/09/2025 1:30 PM ESTSurgery [facility] [address] [place] [address] Franki Zimmerman MD [address] [facility] [address] Ablation atrial flutter [[id number] (CPT??)]NameTypePriorityAssociated DiagnosesOrder ScheduleAmbulatory referral to Cardiac ElectrophysiologyOutpatient Referral Routine Atrial flutter, unspecified type (CMS/HCC) Expected: 05/13/2025 (Approximate), Expires: 11/10/2025documented as of this encounter Visit Diagnoses Diagnosis Atrial flutter, unspecified type (CMS/HCC)- Primary Atrial flutter, unspecified type (CMS/HCC) Atrial flutter, unspecified type (CMS/HCC) documented in this encounter Care Teams Team MemberRelationshipSpecialtyStart DateEnd Date Mason Johnson MD [address] [place] [address] PCP - GeneralInternal Qvzfyyxw30/22/25documented as of this encounter
--- OUTSIDE RECORDS SUMMARY | 2025-05-19 06:54 | XMS_ITS | Encounter Summary ---
Author Organization [facility] Address [address] [place] [address] Care Team Providers Care Business Project Manager Name Role Phone Mason Johnson MD Primary Care Provider [phone] Encounter Details DateTypeDepartmentCare Team (Latest Contact Info)Hflsqlxpyjb51/05/2025Travel Social History Tobacco UseTypesPacks/DayYears UsedDateSmoking Tobacco: NeverSmokeless Tobacco: NeverAlcohol UseStandard Drinks/WeekCommentsYes0 (1 standard drink = 0.6 oz pure alcohol)2 bottles of beer per daySex and Gender InformationValueDate RecordedSex Assigned at UmvpaSowg15/04/2025 2:10 PM ESTLegal HfmOurb5601/03/2022 10:06 PM EDT Gender OggilnyiNmfv96/04/2025 2:10 PM ESTSexual OrientationHeterosexual or Emzrrwxt48/04/2025 2:10 PM ESTdocumented as of this encounter Functional Status * Audit Alcohol ScreeningQuestionAnswerDate of AssessmentAuthorHow often do you have a drink containing alcohol? 3:17 PM Shahana Seaman RN * Audit Alcohol ScreeningQuestionAnswerDate of AssessmentAuthorHow often do you have a drink containing alcohol? 3:17 PM Shahana Seaman RN documented as of this encounter Plan of Treatment DateTypeDepartmentCare Team (Latest Contact Info)Uiqsmfgvbcb20/03/2025 11:30 AM ESTHospital Encounter [facility] [address] [place] [address] Franki Zimmerman MD [address] [place] [address] Atrial flutter, unspecified type (CMS/HCC)06/09/2025 11:30 AM EST - 06/09/2025 1:30 PM ESTSurgery [facility] [address] [place] [address] Franki Zimmerman MD [address] [place] [address] Ablation atrial flutter [[id number] (CPT??)]documented as of this encounter Visit Diagnoses Not on filedocumented in this encounter Care Teams Team MemberRelationshipSpecialtyStart DateEnd Date Mason Johnson MD [address] [facility] [address] [place] [address] PCP - GeneralInternal Ladirenn33/22/25documented as of this encounter
--- OUTSIDE RECORDS SUMMARY | 2025-05-19 06:54 | XMS_ITS | Encounter Summary ---
Author Organization [facility] Address [address] [place] [address] Care Team Providers Care Marketing Technologist Name Role Phone Mason Johnson MD Primary Care Provider [phone] Mason Johnson MD Unavailable [phone] Reason for Visit * ReasonOnset DateCommentsMed Ewldts2805/12/2025 Encounter Details DateTypeDepartmentCare Team (Latest Contact Info)Tmtyidkrkdi10/05/2025Refill [facility] [address] [facility] [address] [place] [id number] Earlene Blanchard MA History of heart artery stent Social History [...] times a week06/10/2023How often do you attend roman catholic or mandaen services?Never06/10/2023o you belong to any clubs or organizations such as roman catholic groups, unions, fraternal or athletic groups, or school groups?No 06/10/2023How often do you attend meetings of the clubs or organizations you belong to?Never06/10/2023re you , , , , never , or living with a partner?Atymzqb5306/10/2023UDIT-CAnswerDate RecordedQ1: How often do you have a drink containing alcohol?4 or more times a week 07/29/2023verage Number of DrinksNot on file07/29/2023Frequency of Binge DrinkingNot on file07/29/2023Overall Financial Resource Strain (CARDIA)Answer Date RecordedHow hard is it for you to pay for the very basics like food, housing, medical care, and heating?Very hard06/10/2023HQ-2AnswerDate Recorded Patient Health Questionnaire-2 Wddro170Finbe[facility] [place] [facility] - Occupational Stress QuestionnaireAnswerDate [...] RecordedSex Assigned at BirthNot on file Legal VnaQewu0009/19/2022 7:58 PM EDTGender IdentityNot on fileSexual Orientation Not on filedocumented as of this encounter Plan of Treatment DateTypeDepartmentCare Team (Latest Contact Info)Ghztepnricq41/17/2025 11:45 AM ESTOffice Visit [facility] [place] [facility] [address] [facility] [address] [place] [phone] Mason Johnson MD [address] [facility] [address] [place] [address] 05/25/2025 9:20 AM ESTOffice Visit [facility] [place] [facility] [address] [place] [address] Mayte Stevens, [employer] OPERATOR-CHARGE ENTRY CLERK [address] [place] [address] 07/20/2025 8:30 AM ESTOffice Visit [facility] [place] [facility] [address] [place] [phone] Leela Schwartz MD [address] [facility] [address] [place], [place] [id number] documented as of this encounter Visit Diagnoses Diagnosis History of heart artery stent documented in this encounter Additional Health Concerns AssessmentNoted TimePHQ-9 Depression Total Score: 5:03 PM EST documented as of this encounter Care Teams Team MemberRelationshipSpecialtyStart DateEnd Date Mason Johnson MD [address] [facility] [address] [place] [address] PCP - GeneralInternal Cdzroufa20/11/24 Mason Johnson MD [address] [facility] [address] [place] [address] PCP - Medical [place]07/08/2511documented as of this encounter
--- OUTSIDE RECORDS SUMMARY | 2025-05-19 06:54 | XMS_ITS | Clinical Summary ---
Author Organization [facility] Address [address] [place] [address] Care Team Providers Care Seed Sorter Name Role Phone Mason Johnson MD Primary Care Provider [phone] Mason Johnson MD Unavailable [phone] Allergies Active AllergyReactionsCriticalityNoted DateCommentsStatinsGI intolerance 06/10/2023 Medications MedicationSigDispense QuantityRefillsLast FilledStart DateEnd DateStatus cholecalciferol (Vitamin D-3) 25 MCG (1000 UT) tablet Take 25 mcg by mouth 1 (one) time each day at the same timeActive latanoprost (Xalatan) 0.005 % ophthalmic solution Administer 1 drop into both eyes DailyActive fenofibrate micronized (Lofibra) 134 MG capsule Indications:Hyperlipidemia, unspecified hyperlipidemia typeTake 1 capsule (134 mg) by mouth Daily 100 capsule 5Active Additional Information Patient taking differently:134 mg Oral Daily,(No times of day reported), Reported on 04/30/2025 metFORMIN (Glucophage) 500 MG tablet Indications:Type 2 diabetes mellitus without complication, without long-term current use of insulin (HCC)Take 1 tablet (500 mg) by mouth Daily 100 tablet 5Active Additional Information Patient taking differently:500 mg Oral [...] (4 mg) before bedtime. 60 tablet 5Active apixaban (Eliquis) 5 MG tablet Indications:History of heart artery stentTake 1 tablet (5 mg) by mouth in the morning and 1 tablet (5 mg) before bedtime. 60 tablet ctive aspirin 81 MG EC tablet Take 81 mg by mouth 1 (one) time each day at the same time05/10/2025Discontinued (Therapy completed) celecoxib (CeleBREX) 200 MG capsule Indications:Osteoarthritis, unspecified osteoarthritis type, unspecified site Take 1 capsule (200 mg) by mouth in the morning and 1 capsule (200 mg) before bedtime. 60 capsule 60Discontinued(Therapy completed) traMADol (Ultram) 50 MG tablet Indications:Pseudogout involving multiple jointsTake 2 tablets (100 mg) by mouth every 8 (eight) hours if needed for severe pain 40 tablet Expired methylPREDNISolone (Medrol Dospak) 4 MG tablets Indications:Left hip painFollow schedule on package instructions 21 tablet Discontinued Eliquis 5 MG tablet Take 5 mg by mouth in the morning and 5 mg before bedtime. Discontinued(Reorder) apixaban (Eliquis) 5 MG tablet Indications:History of heart artery stentTake 1 tablet (5 mg) by mouth in the morning and 1 tablet (5 mg) before bedtime. 200 tablet Discontinued(Reorder) Active Problems ProblemNoted DateDiagnosed DateHistory of heart artery stent04/30/2025Pseudogout involving multiple wvmvga2303/26/2025Spondylosis of cervical region without myelopathy or fouecjphnzaxl11/21/2025Primary osteoarthritis of left hip 10/26/2024Separation of right acromioclavicular joint10/16/2024Hyperlipidemia 12/16/2023Throat lbvqrc2512/04/2023Neck muscle spasm11/20/2023 Assessment & Plan (11/20/2023 11:00 [...] it. Educated and counseled on it. 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 GERD (gastroesophageal reflux disease)01/15/2023History of MO (myocardial infarction)01/15/2023HTN (hypertension)01/15/2023 Assessment & Plan (12/16/2023 [...] OJEDA (nonalcoholic steatohepatitis)01/15/2023iastasis recti01/15/2023ancer of base of rpdtyt3212/15/2022 Overview (01/15/2023): Diagnosed 07/31/22. Diffusely p16 positive poorly differentiated SCCA. CT shows >5 cm tongue basemass and multiple morphologically abnormal, but normal sized LN in LT zone 2. Radiation completed 10/22/22. Monthly checks began 11/2022. Metastatic cancer to cervical lymph nodes12/15/2022Stage 2 chronic kidney zwbltuq4111/01/2022 Assessment & Plan (12/16/2023 9:46 AM EDT): CKD 2, likely age related. Monitor. Avoid NSAIDS. Chemotherapy-induced pfgytbpqheu00/14/2023olon bsdifm4911/19/2012 Resolved Problems ProblemNoted DateDiagnosed DateResolved DateType 2 diabetes mellitus without /04/202302/Diastasis rectiisorder of sqfrhazy48lucose kkcuwmmxunm65History of colonic lcdfvg88History of malignant neoplasm of colon 8063Beensyhihrfdobvvcmgn27/11/202307/11/2023Raynaud's syndrome Vitamin D shgjqvyxbf90Overweight12/15/2022 12/15/2022cute pain of right xdooanjx55asal cell carcinoma (BCC) of facehemotherapy-induced bgtzltwuiik12/14/2023 01/15/2023 Encounters DateTypeDepartmentCare AezrSdfquqcrtvc94/06/2025Telephone [facility] [place] [facility] [address] [facility] [address] [place] [address] Mason Johnson MD 05/13/2025bstract [facility] [place] [facility] [address] [place] [address] [place] [address] Mason Johnson MD 05/12/2025Refill [facility] [place] [facility] [address] [facility] [address] [place] [address] Earlene Blanchard, TREVOR History of heart artery stent05/11/2025bstract [facility] [place] [facility] [address] [facility] [address] [place] [address] Mason Johnson MD 05/10/2025Patient Outreach [facility] [address] [place] [address] Vibha Rojo RN 05/10/2025Telephone [facility] [place] [facility] [address] [place] [address] [place] [address] Elodia Parker LPN 05/10/2025bstract [facility] [place] [facility] [address] [place] [address] [place] [address] Mason Johnson MD 05/03/2025Telephone [facility] [place] [facility] [address] [facility] [address] [place] [address] Mason Johnson MD 05/03/2025Telephone [facility] [address] 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 Mechelle Boyer, DO 04/29/2025linisync Result Encounter [facility] External Department Unsolicited Provider, Generic External Data 04/29/2025linisync Result Encounter [facility] External Department Unsolicited Provider, Generic External Data 04/29/2025linisync Result Encounter [facility]OM[facility] External Department Unsolicited Provider, Generic External Data 04/29/2025Telephone [facility] [address] [place] [phone] Jr. Mechelle Boyer, DO Lab Work04/28/2025 9:00 AM EDTOffice Visit [facility] [address] [facility] [address] [place] [phone] Jr. Mechelle Boyer, DO Primary osteoarthritis of left hip (Primary Dx); Pre-op pmgkjnctio94/22/2025Telephone [facility] [address] [place] [address] [place] [address] Georgiana Armenta MA Hold Cpkewr6204/28/2025amboo flowsheet [facility] [address] [place] [address] [place] [address] Jr. Mechelle Boyer, DO 04/28/20250774Vovgzt18/14/2025 8:00 AM EDTOffice Visit [facility] [place] [facility] [address] [place] [address] [place] [address] Leela Schwartz MD 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)04/20/2025Telephone [facility] [place] [facility] [address] [place] [address] [place] [address] Mason Johnson MD 04/20/2025amboo flowsheet [facility] [place] [facility] [address] [place] [address] [place] [address] Leela Schwartz MD 04/20/20251382Ozzycq24/13/2025Telephone [facility] [address] [place] [address] [place] [address] Jr. Mechelle Boyer, DO hip THA04/14/2025 1:15 PM EDTOffice Visit [facility] [address] [place] [address] [place] [address] Jr. Mechelle Boyer, DO Left hip pain (Primary Dx); Pseudogout involving multiple joints; Primary osteoarthritis of left hip04/14/2025 1:10 PM EDTAncillary Procedure [facility] [address] [place] [address] [place] [address] 04/14/2025amboo flowsheet [facility] [facility] [address] [place] [address] [place] [address] Jr. 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, without long-term current use of insulin (HCC); Moderate mixed hyperlipidemia not requiring statin mzzhfba8803/26/2025amboo flowsheet [facility] [place] [facility] [address] [facility] [address] [place] [address] Mason Johnson MD 03/26/20256682Tdvrmd30/05/2025Clinisync Result Encounter [facility] External Department Unsolicited Mason Johnson MD 03/01/2025Telephone [facility] [place] [facility] [address] [facility] [address] [place] [address] Mason Johnson MD mri requestfrom Last 3 Months Immunizations ImmunizationAdministration DatesNext DueInfluenza, High Dose Seasonal, Preservative Free05/19/2019Influenza, High-dose Seasonal, Quadrivalent, Preservative Free07/15/2024Influenza, Seasonal, Quadrivalent, Adjuvanted 06/20/2023,05/03/2022,06/15/2021Influenza, injectable, MDCK, preservative free, yyexgwgfowai40/18/2018Influenza, seasonal, kqjyjgolww98/01/2022Influenza, seasonal, injectable, preservative free06/21/2015Novel tbaufswmq-H1X9-74, preservative-free06/20/2009 Family History * Patient is adopted [...] times a week06/10/2023How often do you attend baptist or latter-day services?Never06/10/2023o you belong to any clubs or organizations such as baptist groups, unions, fraternal or athletic groups, or school groups?No 06/10/2023How often do you attend meetings of the clubs or organizations you belong to?Never06/10/2023re you , , , , never , or living with a partner?Xsmubkd5106/10/2023UDIT-CAnswerDate RecordedQ1: How often do you have a drink containing alcohol?4 or more times a week 07/29/2023verage Number of DrinksNot on file07/29/2023Frequency of Binge DrinkingNot on file07/29/2023Overall Financial Resource Strain (CARDIA)Answer Date RecordedHow hard is it for you to pay for the very basics like food, housing, medical care, and heating?Very hard06/10/2023HQ-2AnswerDate Recorded Patient Health Questionnaire-2 Zrmfg106FinRehabilitation Hospital of [facility] of Occupational Health - Occupational Stress QuestionnaireAnswerDate [...] steady place to sleep or slept in [facility] (including now)?No06/10/2023 Sex and Gender InformationValueDate RecordedSex Assigned at BirthNot on file Legal SntDdhn7409/19/2022 7:58 PM EDTGender IdentityNot on fileSexual Orientation Not on file Last Filed Vital Signs Vital SignReadingTime TakenCommentsBlood Gkwbmujm654/7610 11:43 AM EDT Xqpbi892204/30/2025 11:43 AM SDUIyyhgzytsok09.4 ??C (97.5 ??F)12/16/2023 9:07 AM EDTRespiratory Rate--Oxygen Ewiocfzbrf62%04/30/2025 11:43 AM EDTInhaled Oxygen Concentration--Zoglob43.4 kg (197 lb)04/30/2025 11:43 AM CPCUiautu268.2 cm (5' 7 )04/30/2025 11:43 AM EDTBody Mass Index30.8504/30/2025 11:43 AM EDT Plan of Treatment DateTypeDepartmentCare Team (Latest Contact Info)Vfniycxnbsb54/17/2025 11:45 AM ESTOffice Visit [facility] [place] [facility] [address] [facility] [address] [place] [phone] Mason Johnson MD [address] [facility] [address] [place] [address] 05/25/2025 9:20 AM ESTOffice Visit [facility] [facility] [address] [place] [address] Mayte Stevens, BEND SORTER-AUTOMATED LOGISTICS SPECIALIST [address] [place] [address] [place] [address] 07/20/2025 8:30 AM ESTOffice Visit [facility] [place] [facility] [address] [place] [address] [place] [address] Leela Schwartz MD [address] [facility] [address] [place] [address] Health MaintenanceDue DateLast DoneCommentsPneumococcal Vaccine: 65+ Years (1 of 2 - PCV)10/31/1962COVID-19 Vaccine (3 - Moderna risk series)10/04/2020 09/06/2020, 1Diabetes: Retinopathy Vbdzlgxbi85/01/927360/07/2022 Influenza Vaccine (#1)501/02/2025, 06/20/2023, 05/03/2022, Additional history existsDiabetes: Hemoglobin A1C/10/2024, 08/31/2024, 11/20/2023, Additional history existsMedicare Annual Wellness (AWV)08/31/2025 08/31/2024, 3Diabetes: Urine Protein Tnxhffizl44/, 02/06/2023, 02/06/2023 Procedures Procedure NamePriorityDate/TimeAssociated DiagnosisCommentsXR HIP 1 VW LEFT 04/29/2025 6:23 PM EDT ECG 12-LEAD04/29/2025 12:39 PM EDT MHPT YJYARCJCPNTXFvhdwcz73/23/2025 12:17 PM EDT ALL CBC WITH AUTO JXXPWbusiem08/23/2025 12:17 PM EDT CCF OVMZCdqqrxl00/23/2025 12:17 PM EDT SRMCOH PROTHROMBIN TIME INR W/O SOXZFviznzm02/23/2025 12:17 PM EDT [facility] CMP (CMP) (FOR REMOTE [facility] USE)Gbjkosa4804/29/2025 12:17 PM EDT URINE CULTURE - OABDGiivjcc13/23/2025 12:06 PM EDT TBH UA (CLEAN/CATCH) MICROSCOPIC IF SPTLFUASEkviywe11/23/2025 12:06 PM EDT CULTURE, URINE, MGNWBTGXjwglis21/23/2025 12:06 PM EDT XR HIP 2 OR 3 VW CHLCKqvsazo25/08/2025 1:06 PM EDT Left hip pain COMPREHENSIVE METABOLIC UDJWZNcfpvcn29/19/2025 11:19 AM EDT Primary hypertension 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, without long-term current use of insulin (HCC) Moderate mixed hyperlipidemia not requiring statin therapy MICROALBUMIN / CREATININE URINE PTNYSReenxuj70/19/2025 11:19 AM EDT Primary hypertension 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, without long-term current use of insulin (HCC) Moderate mixed hyperlipidemia not requiring statin therapy LIPID UVEXHDubeyoc81/19/2025 11:19 AM EDT Primary hypertension 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, without long-term current use of insulin (HCC) Moderate mixed hyperlipidemia not requiring statin therapy MR HIP LEFT WO IV OBTORQNJ27/05/2025 3:44 PM EDT POCT GLYCATED HEMOGLOBIN, YJXQABkqaqku61/04/2025 11:30 AM EDT Inflammatory arthritis from Last 3 Months or Most Recently Relevant to Health Maintenance Results * XR hip left 1 view (04/29/2025 6:23 PM EDT)Anatomical RegionLateralityModality Lower Extremities, HipLeftRadiographic ImagingSpecimen (Source)Anatomical Location / LateralityCollection Method / VolumeCollection TimeReceived Time 04/29/2025 6:23 PM EDT Narrative 04/29/2025 6:25 PM EDT [facility] ?[address] ? [place] [address] ?XRay Report ? Signed ? Patient: ANN ROOT Kassidy ?MR#: [id number] ?? : 1945 ?Acct:[id number] ?? Age/Sex: 79 / M ?ADM Date: 04/29/25 ?? Loc: LAB ? Attending Dr: Mechelle Boyer D.O. ? Ordering Physician: Mechelle Boyer D.O. ?? Date of Service: 04/29/25 ?? Procedure(s): XR hip LT 1V w/ pelvis ?? Accession Number(s): [id number] ? cc: MASON JOHNSON ; Mechelle Boyer D.O. ? [facility] ? [address] ? [place] [address] ? Patient Name: ?? ANN ROOT ? MRN: [id number] ? date: 1945 ?Sex: M ?? Assigned Patient Location: LAB ?? Current Patient Location: LAB ?? Accession/Order Number: [id number] ?? Exam Date: 04/29/2025 ??12:41 ?Report Date: 04/29/2025 ??18:23 ? At the request of: ?? MECHELLE ??STEPANIC ??DO ? Procedure: ??XR hip LT 1V [...] Dictation Location: RADIO-PC-29 ? Electronically authenticated by: [id number] ??Y ?? Date: 04/29/2025 ??18:23 ? Dictated By: ?Hernandez Rosales M.D. ? Signed By: ?10/23/25 1825 ? DD/ 1823 ? TD/TT: ? Home Coordinator: Procedure Note Radiology, Radiologist, - 04/30/2025 The [place] [id number] XRay Report Signed Patient: ANN ROOT DMR#: [id number] : 1945cct:[id number] Age/Sex: 79 / MADM Date: 04/29/25 Loc: LAB Attending Dr: Mechelle Boyer D.O. Ordering Physician: Mechelle Boyer D.O. Date of Service: 04/29/25 Procedure(s): XR hip LT 1V w/ pelvis Accession Number(s): [id number] cc: MASON JOHNSON ; Mechelle Boyer D.O. The [address] [address] Patient Name: ANN ROOT MRN: [id number] date: 1945 Sex: M Assigned Patient Location: LAB Current Patient Location: LAB Accession/Order Number: [id number] Exam Date: 04/29/2025 12:41 Report Date: 04/29/2025 [...] Rosales M.D. 04/29/2025 6:23 PM Dictation Location: [place] [address] Electronically authenticated by: [id number] Y Date: 8:23 Dictated By: Hernandez Rosales M.D. Signed By:04/29/251824 DD/ 22 TD/TT: Home Coordinator: Authorizing ProviderResult TypeResult StatusGeneric External Data ProviderIMG XR PROCEDURESFinal Result * ECG 12-LEAD (04/29/2025 12:39 PM EDT)Anatomical RegionLateralityModalityOther Specimen (Source)Anatomical Location / LateralityCollection Method / Volume Collection TimeReceived Time04/29/2025 12:39 PM EDT Narrative 04/29/2025 7:20 PM EDT [facility] ?[address] ? [place] [address] ? Electrocardiograph Report ? Signed ? Patient: ANN ROOT D ?MR#: [id number] ?? : 1945 ?Acct:[id number] ?? Age/Sex: 79 / M ?ADM Date: 04/29/25 ?? Loc: LAB ? Attending Dr: Mechelle Boyer D.O. ? Ordering Physician: Mechelle Boyer D.O. ?? Date of Service: 04/29/25 ?? Procedure(s): ECG 12 lead ?? Accession Number(s): [id number] ? cc: ?[facility] ? Test Date: ?2025-04-29 ?? Pat Name: ? ANN ROOT ?Department: ? Room: ? - ?? Gender: ? Male ? Consultant In Ergonomics And Safety: ? : ?1945 ? Requested By: MASON JOHNSON ?? Order Number: [id number] ?Reading MD: ?? MECHELLE ??Sarah SCHMIDT ? Measurements ?? Intervals ?[place] ? Rate: ? 84 ? P: ? [place]: ?QRS: ?-10 ?? QRSD: ? 114 ?T: [...] Signed On 04-29-2025 19:19:53 EDT by MECHELLE ??Sarah SCHMIDT ? Dictated By: ?MECHELLE SCHMIDT ? Signed By: ?10/23/25 1920 ?04/29/25 1920 ? DD/ 1239 ? TD/TT: ? Home Coordinator: Procedure Note Radiology, Radiologist, MD - 04/29/2025 [place] [address] Electrocardiograph Report Signed Patient: ANN ROOT DMR#: [id number] : 1945cct:[id number] Age/Sex: 79 / MADM Date: 04/29/25 Loc: LAB Attending Dr: Mechelle Boyer D.O. Ordering Physician: Mechelle Boyer D.O. Date of Service: 04/29/25 Procedure(s): ECG 12 lead Accession Number(s): [id number] cc: [facility] Test Date: 2025-04-29 Pat Name: ANN ROOT Department: Room: - Gender: Male Consultant In Ergonomics And Safety: : 1945 Requested By: MASON JOHNSON Order Number: [id number] Lanette MD: MECHELLE SCHMIDT M.D. Measurements Intervals [place] Rate: 84 P: [place]: QRS: -10 QRSD: 114 T: 54 QT: [...] MECHELLE SCHMIDT Signed By:04/29/25191904/29/251919 DD/ 1239 TD/TT: Home Coordinator: Authorizing ProviderResult TypeResult StatusGeneric External Data Provider [...] Data Provider CLINISYNCFinal ResultPerforming OrganizationAddressCity/State/ZIP CodePhone Number [facility] * (ABNORMAL) MHPT DIFFERENTIAL (04/29/2025 12:17 PM EDT)ComponentValueRef Range Test MethodAnalysis TimePerformed AtPathologist SignatureSEGMENTED NEUTROPHILS % GQRQSX57.0(H)43.0 - 75.0TBHBAND NEUTROPHILS %3.00 - 5 %TBHLYMPHOCYTES [...] CLINISYNCFinal ResultPerforming OrganizationAddressCity/State/ZIP CodePhone Number CLINISYNC TB * (ABNORMAL) [facility] CMP (CMP) (FOR REMOTE [facility] USE) (04/29/2025 12:17 PM EDT) ComponentValueRef RangeTest MethodAnalysis TimePerformed AtPathologist QtmvfprpsCWXYCM736683 - 145 mmol/LTBHPOTASSIUM4.13.5 - 5.1 mmol/LTBHCHLORIDE 55143 - 107 mmol/LTBHCARBON VSVVTZI32.221.0 - 32.0 mmol/LTBHANION GAP13.9TBH QACXSSH508(H)74 - 106 mg/dLTBHBLOOD UREA KGXJZAED90.07.0 - 18.0 mg/dLTBH CREATININE1.180.70 - 1.30 mg/dLTBHTBH EGFR-AF DJIBOUTIAN>60>=60 mL/min/1.73m 2 TBHTBH EGFR-NON AF ZORZTMVD28(L)>=60 mL/min/1.73m 2TBHBUN CREATININE RATIO13.6 TBHCALCIUM9.48.5 - 10.1 mg/dLTBHBILIRUBIN TOTAL0.60.2 - 1.0 mg/dLTBHASPARTATE AMINO GAQELOESNVJ8867 - 37 U/LTBHALANINE LZHUZTFZTNBERHJI8618 - 63 U/LTBH ALKALINE KCDZLTQBRAV83743 - 116 U/LTBHTOTAL PROTEIN7.76.4 - 8.2 g/dLTBHALBUMIN LEVEL3.83.4 - 5.0 g/dLTBHGLOBULIN3.9g/dLTBHALBUMIN GLOBULIN RATIO1.0TBH Specimen (Source)Anatomical Location / LateralityCollection Method / Volume Collection TimeReceived Time04/29/2025 12:17 PM EDT1 12:22 PM EDT Narrative CLINISYNC - 04/29/2025 12:55 PM EDT Authorizing ProviderResult TypeResult StatusGeneric External Data Provider CLINISYNCFinal ResultPerforming OrganizationAddressCity/State/ZIP CodePhone Number [facility] * CCF APTT (04/29/2025 12:17 PM EDT)ComponentValueRef RangeTest MethodAnalysis TimePerformed AtPathologist SignaturePARTIAL THROMBOPLASTIN TIME29.822.3 - 36.2 secTBHSpecimen (Source)Anatomical Location / LateralityCollection Method / VolumeCollection TimeReceived Time04/29/2025 12:17 PM EDT1 12:22 PM EDT Narrative CLINISYMT - 04/29/2025 12:56 PM EDT Authorizing ProviderResult TypeResult StatusGeneric External Data Provider CLINISYNCFinal ResultPerforming OrganizationAddressCity/State/ZIP CodePhone Number [facility] * ALL CBC WITH AUTO DIFF (04/29/2025 12:17 PM EDT)ComponentValueRef RangeTest MethodAnalysis TimePerformed AtPathologist SignatureTBH WBC6.24.0 - 11.0 10 3/uLTBHTBH RBC4.764.70 - 6.10 10 6/uLTBHTBH HGB14.114.0 - 18.0 g/dLTBHTBH HCT 42.542.0 - 54.0 %TBMEMORIAL [facility] MCV89.380.0 - 94.0 fLTBHTB MCH29.625.9 - 34.0 pgTBBATES COUNTY MEMORIAL [facility] MCHC33.229.9 - 35.2 g/dLTBHTBH RDW14.311.0 - 15.0 %TBHT UBE406306 - 450 10 3/uLTBHTBH MPV9.89.5 - 13.5 fLTBHSpecimen (Source)Anatomical Location / LateralityCollection Method / VolumeCollection TimeReceived Time04/29/2025 12:17 PM EDT1 12:22 PM EDT Narrative CLINISYNC - 04/29/2025 1:19 PM EDT Authorizing ProviderResult TypeResult StatusGeneric External Data Provider CLINISYNCFinal ResultPerforming OrganizationAddressCity/State/ZIP CodePhone Number [facility] * URINE CULTURE - FR (04/29/2025 12:06 PM EDT)ComponentValueRef RangeTest MethodAnalysis TimePerformed AtPathologist SignatureURINE CULTURE - FR ??Urine Culture - FR No Growth 2 Days TBHURINE CULTURE - FRTBHURINE CULTURE - FRTesting performed at [facility]TB[facility] - [id number] [place] [address] TBHSpecimen (Source)Anatomical Location / LateralityCollection Method / Volume Collection TimeReceived Time04/29/2025 12:06 PM EDT1 12:52 PM EDT Narrative CLINISYNC - 05/02/2025 5:24 PM EDT Authorizing ProviderResult TypeResult StatusGeneric External Data ProviderLAB BLOOD ORDERABLESFinal ResultPerforming OrganizationAddressCity/State/ZIP Code Phone Number [facility] * (ABNORMAL) TBH UA (CLEAN/CATCH) MICROSCOPIC IF [...] PM EDT)ComponentValueRef RangeTest Method Analysis TimePerformed AtPathologist SignatureFRMC NOTENo Growth 2 Days 05/02/2025 10:12 AM EDTFTwin City Hospital CtrSpecimen (Source) Anatomical Location / LateralityCollection Method / VolumeCollection Time Received TimeUrineUrine specimen obtained by clean catch procedure / Unknown 04/29/2025 12:06 PM EDT1 12:40 PM EDTComment:Clean-Voided Midstream Narrative Authorizing ProviderResult TypeResult StatusJr. Mechelle Boyer DOLAB MICROBIOLOGY - GENERAL ORDERABLESFinal ResultPerforming OrganizationAddress City/State/ZIP CodePhone Number [facility] [address] [place] [id number], [facility] [address] [place] [id number] * XR hip left 2 or 3 [...] hip Authorizing ProviderResult TypeResult StatusJr. Mechelle Boyer DOIMG XR PROCEDURESFinal Result * Microalbumin / creatinine, urine ratio (03/26/2025 11:19 AM EDT)ComponentValue Ref RangeTest MethodAnalysis TimePerformed AtPathologist SignatureCREATININE, RANDOM DRNKX8619 - 320 mg/dLQUESTALBUMIN, URINE0.8See Note: mg/dLQUESTComment: Reference [...] specimen obtained by clean catch procedure / Ugczpax2303/26/2025 11:19 AM EDT03/26/2025 11:20 AM EDT Narrative [facility] - 03/27/2025 12:54 PM EDT FASTING:YES FASTING: YES Resulting Agency Comment Performing Organization Information ?Site ID: QPT ?Name: [facility] ?Address: [address] [place] [phone] ?Director: Maged Olson MD Authorizing ProviderResult TypeResult StatusDalaron Johnson MDLAB URINE ORDERABLESFinal ResultPerforming OrganizationAddressCity/State/ZIP CodePhone Number QUEST * Lipid panel (03/26/2025 11:19 AM EDT)ComponentValueRef RangeTest Method Analysis TimePerformed AtPathologist SignatureCHOLESTEROL, CUJUS303<200 mg/dL QUESTHDL ZWPEXNDNKBS87> OR = 40 mg/zCDVKXWKBHPEXVUYCZXT10<150 mg/dLQUESTLDL IJFCVHOCYBT20mb/dL (calc)QUESTComment: Reference range: <100 Desirable range <100 mg/dL for primary prevention; <70 mg/dL for patients with CHD or diabetic patients with > or = 2 CHD risk factors. LDL-C is now calculated using the Beto calculation, which is a validated novel method providing better accuracy than the Friedewald equation in the estimation of LDL-C. Monroe GAN et al. TITI. 2013;310(19): 3598-6456 (http://education.OneBuckResume.[employer]/faq/SDZ986) CHOL/HDLC RATIO2.8<5.0 (calc)QUESTNON HDL MJGXMMGAIFC25<130 mg/dL (calc)QUEST Comment: For patients with diabetes plus 1 major ASCVD risk factor, treating to a non-HDL-C goal of <100 mg/dL (LDL-C of <70 mg/dL) is considered a therapeutic option. Specimen (Source)Anatomical Location / LateralityCollection Method / Volume Collection TimeReceived TimeBloodVenous blood specimen / Jcumjdt4903/26/2025 11:19 AM EDT03/26/2025 11:20 AM EDT Narrative QUEST - 03/27/2025 12:54 PM EDT FASTING:YES FASTING: YES Resulting Agency Comment Performing Organization Information ?Site ID: QPT ?Name: [facility] ?Address: [address] [place] [address], [address] [place] [phone] ?Director: Maged Olson MD Authorizing ProviderResult TypeResult [...] should be confirmed with a follow-up test. AZE521 - 25 mg/dLQUESTCreatinine1.28(H)0.70 - 1.22 mg/fPRIGMLZQXP45(L)> OR = 60 mL/min/1.47r9YFHLIHCJ/CREATININE KYFVH004 - 22 (calc)TPXKICwqbqi926228 - 146 mmol/LQUESTPotassium, Bld4.33.5 - 5.3 mmol/NHJHJHMiladsox80617 - 110 mmol/LQUEST Carbon Slpthih5534 - 32 mmol/LQUESTCalcium9.18.6 - 10.3 mg/dLQUESTPROTEIN, TOTAL 6.56.1 - 8.1 g/dLQUESTALBUMIN4.03.6 - 5.1 g/dLQUESTGLOBULIN2.51.9 - 3.7 g/dL (calc)QUESTALBUMIN/GLOBULIN RATIO1.61.0 - 2.5 (calc)QUESTBILIRUBIN, TOTAL1.00.2 - 1.2 mg/dLQUESTALKALINE BLQUUHZOMCU8692 - 144 U/QRVUNRQPZ8852 - 35 U/LQUESTALT 49(H)9 - 46 U/LQUESTSpecimen (Source)Anatomical Location / LateralityCollection Method / VolumeCollection TimeReceived TimeBloodVenous blood specimen / Unknown 03/26/2025 11:19 AM EDT03/26/2025 11:20 AM EDT Narrative QUEST - 03/27/2025 12:54 PM EDT FASTING:YES FASTING: YES Resulting Agency Comment Performing Organization Information ?Site ID: QPT ?Name: [email or web address] ?Address: [address] [place] [address], [address] [place] [phone] ?Director: Maged Olson MD Authorizing ProviderResult TypeResult StatusDalaron Johnson MDLAB BLOOD ORDERABLESFinal ResultPerforming OrganizationAddressCity/State/[facility] CodePhone Number QUEST * MR hip left wo IV contrast (03/12/2025 3:44 PM EDT)Anatomical RegionLaterality ModalityLower Extremities, HipLeftMagnetic ResonanceSpecimen (Source) Anatomical Location / LateralityCollection Method / VolumeCollection Time Received Time03/12/2025 3:44 PM EDT Narrative 03/12/2025 3:46 PM EDT [facility] ?[address] ? [place] [address] ? Magnetic Resonance Report ? Signed ? Patient: ROOTANN Yi ?MR#: [id number] ?? : 1945 ?Acct:[id number] ?? Age/Sex: 79 / M ?ADM Date: 03/12/25 ?? Loc: MRI ? Attending Dr: MASON JOHNSON ? Ordering Physician: MASON JOHNSON ?? Date of Service: 03/12/25 ?? Procedure(s): MR hip LT wo con ?? Accession Number(s): [id number] ? cc: MASON JOHNSON ? [facility] ? [address] ? [place] [address] ? Patient Name: ?? ANN ROOT ? MRN: [id number] ? date: 1945 ?Sex: M ?? Assigned Patient Location: MRI ?? Current Patient Location: MRI ?? Accession/Order Number: [id number] ?? Exam Date: 03/12/2025 ??10:00 ?Report Date: [...] Dictation Location: RADIO-PC-23 ? Electronically authenticated by: [id number] ??Y ?? Date: 03/12/2025 ??15:44 ? Dictated By: ?El Burnett M.D. ? Signed By: ?03/12/25 1546 ? DD/ 1544 ? TD/TT: ? Home Coordinator: Procedure Note Radiology, Radiologist, MD - 03/12/2025 [place] [address] Magnetic Resonance Report Signed Patient: ANN ROOT DMR#: [id number] : 1945cct:[id number] Age/Sex: 79 / MADM Date: 03/12/25 Loc: MRI Attending Dr: MASON JOHNSON Ordering Physician: MASON JOHNSON Date of Service: 03/12/25 Procedure(s): MR hip LT wo con Accession Number(s): [id number] cc: MASON JOHNSON [place] [id number] Patient Name: ANN ROOT MRN: [id number] date: 1945 Sex: M Assigned Patient Location: MRI Current Patient Location: MRI Accession/Order Number: [id number] Exam Date: 03/12/2025 10:00 Report Date: 03/12/2025 [...] Burnett M.D. 03/12/2025 3:44 PM Dictation Location: [place] [address] Electronically authenticated by: [id number] Y Date: :[birth year] Dictated By: El Burnett M.D. Signed By:03/12/25 1546 DD/ 1544 TD/TT: Home Coordinator: Authorizing ProviderResvanessa TypeResult Chris Johnson MDIMG MRI PROCEDURES Final Result * POCT Glycated hemoglobin, total (12/09/2024 11:30 AM EDT)ComponentValueRef RangeTest MethodAnalysis TimePerformed AtPathologist SignatureHemoglobin A1C 7.1Specimen (Source)Anatomical Location / LateralityCollection Method / Volume Collection TimeReceived GoxoKsbvh35/04/2025 11:30 AM EDT Narrative Authorizing ProviderResult TypeResult Chris Johnson MDPOINT OF CARE TEST ENTER/EDIT ORDERABLESFinal Result from Last 3 Months or Most Recently Relevant to Health Maintenance Insurance * Guarantor: Ann Root DAccount TypeRelation to PatientDate of BirthPhone Billing AddressPersonal/GrcnoqSykv91/26/1946 [address] [address] Care Teams Team MemberRelationshipSpecialtyStart DateEnd Date aMson Johnson MD [address] [facility] [address] [place] [address] PCP - GeneralInternal Ogzwbyaq24/11/24 Mason Johnson MD [address] [facility] [address] [place] [address] PCP - Medical [facility]07/08/2511
== END 2025-05-19 06:51 | disposition home or self-care (01) ==
LOC: CARD 06:51
PROVIDERS: PCP Internal Medicine; Visit Provider Internal Medicine Cardiovascular Disease
DX: Z01.818 Encounter for other preprocedural examination (principal); I25.10 Atherosclerotic heart disease of native coronary artery without angina pectoris; I48.4 Atypical atrial flutter
CPT/HCPCS: 93306

== ENCOUNTER 2025-05-21 08:31 | Outpatient (OUT) | payer MEDICARE, SELFPAY ==
--- OUTSIDE RECORDS SUMMARY | 2025-05-11 14:15 | XMS_ITS | Encounter Summary ---
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 Name Role Phone Mason Johnson MD Primary Care Provider [phone] Reason for Referral * Imaging (Routine) - Pending ReviewSpecialtyDiagnoses / ProceduresReferred By ContactReferred To ContactCardiology Diagnoses Pre-op evaluation Coronary artery disease, unspecified vessel or lesion type, unspecified whether angina present, unspecified whether [place] or transplanted heart Atypical atrial flutter (CMS/HCC) Procedures Transthoracic echo (TTE) complete Franki Zimmerman MD [address] [place] [address] Phone: tel: fax: Referral IDStatusReasonStart DateExpiration DateVisits RequestedVisits [id number] Review Perform Procedure Reason for Visit * ReasonCommentsNew PatientPatient is here today to establish care with cardilolgy. Patient was recently in the hospital for A-Fib seen at [facility] ER. Patient also need surgery clearance, For left hip replacement. Patient chest pain, SOB/BUTT, palpitations/racing heart, fatigue, dizziness/lightheadedAtrial FibrillationCoronary Artery DiseaseHypertensionHyperlipidemiaRaynaud's Encounter Details DateTypeDepartmentCare Team (Latest Contact Info)Xaqotldagse08/04/2025 2:15 PM ESTOffice Visit [facility] [address] [place] [address] Franki Zimmerman MD [address] [place] [phone] Pre-op evaluation (Primary Dx); Coronary artery disease, unspecified vessel or lesion type, unspecified whether angina present, unspecified whether [place] or transplanted heart; Atypical atrial flutter (CMS/HCC) Social History Tobacco UseTypesPacks/DayYears UsedDateSmoking Tobacco: NeverSmokeless Tobacco: Never Tobacco Cessation:Counseling Given: Not Answered Alcohol UseStandard Drinks/WeekCommentsYes0 (1 standard drink = 0.6 oz pure alcohol)2 bottles of beer per daySex and Gender InformationValueDate RecordedSex Assigned at HtsdcAtal87/04/2025 2:10 PM ESTLegal WjiWsoj9401/03/2022 10:06 PM EDT Gender NkyiwpgwCnwk90/04/2025 2:10 PM ESTSexual OrientationHeterosexual or Xtqlotez20/04/2025 2:10 PM ESTdocumented as of this encounter Last Filed Vital Signs Vital SignReadingTime TakenCommentsBlood Ynqkrgzj530/7905/11/2025 2:45 PM EST Mkajs396905/11/2025 2:45 PM ESTTemperature--Respiratory Rate--Oxygen Wdffmknxbl85% 05/11/2025 2:45 PM ESTInhaled Oxygen Concentration--Gbdqpi62 kg (194 lb) 05/11/2025 2:45 PM VLYWjlmfz222.2 cm (5' 7 )05/11/2025 2:45 PM ESTBody Mass Index30.38107/11/2024 2:45 PM ESTdocumented in this encounter Functional Status * BPAnswerDate of FwnimcnpybVunqmf728/7905/11/2025 2:45 PM Awilda Martinez MA * PulseAnswerDate of MfoorocaxjHgadpd4621/04/2025 2:45 PM Awilda Martinez MA * Patient PositionAnswerDate of XpsqqdtqrlWhkiseDhbufga72/04/2025 2:45 PM EST Awilda Gallagher MA * BPAnswerDate of HmbzxthhxfUtttpv610/ 2:45 PM Awilda Martinez MA * PulseAnswerDate of NyapgfwsxtJnwsmg6798/04/2025 2:45 PM Awilda Martinez MA * MsY6GgxewoXarf of NkelywmkszNpauzl1757/04/2025 2:45 PM Awilda Martinez MA * BP LocationAnswerDate of AssessmentAuthorLeft arm05/11/2025 2:45 PM EST Awilda Gallagher MA * Patient PositionAnswerDate of UhotnshylsJdrkujWndlbmx15/04/2025 2:45 PM EST Awilda Gallagher MA documented as of this encounter Progress Notes * Franki Zimmerman MD - 05/11/2025 2:15 PM EST Images from the original note were not included. [place] Electrophysiology Consult Note [place] [facility] - [facility] Reason for visit: Atrial flutter HPI: Manish Root is a 79 y.o. 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 In the left eye was sent to the ER and kauffman bsequently started on Eliquis and also placed on Toprol-XL 25. He was subsequently referred to me for further evaluation of his underlying problem. Patient has not had any recent cardiac workup in the past. Given that he had been doing very well he has not had any follow-up since the last time he had outpatient visits with Dr. Basilio here at [place]. He states that he is fairly active and is not symptom limited except for difficulty walking and leading to his orthopedic issues PMH: Medical History[1] PSH: Surgical History[2] SH: Social Drivers of Health Tobacco Use: Low Risk (05/11/2025) Patient History Smoking Tobacco Use: Never Smokeless Tobacco Use: Never Passive Exposure: Not on file Alcohol Use: Unknown (07/29/2023) Received from [facility] [employer] AUD[facility] Frequency of Alcohol Consumption: 4 or more times a week Average Number of Drinks: Not on file Frequency of Binge Drinking: Not on file Financial Resource Strain: High Risk (06/10/2023) Received from [facility] Overall Financial Resource Strain (CARDIA) Difficulty of Paying Living Expenses: Very hard Food Insecurity: No Food Insecurity (06/10/2023) Received from [facility] Hunger Vital Sign Worried About Running Out of Food in the Last Year: Never true Ran Out of Food in the Last Year: Never true Transportation Needs: No Transportation Needs (06/10/2023) Received from [facility] PRAPARE - Transportation Lack of Transportation (Medical): No Lack of Transportation (Non-Medical): No Physical Activity: Sufficiently Active (06/10/2023) Received from [facility] Exercise Vital Sign Days of Exercise per Week: 7 days Minutes of Exercise per Session: 30 min Stress: No Stress Concern Present (06/10/2023) Received from [facility] [place] of Occupational Health - Occupational Stress Questionnaire Feeling of Stress : Not at all Social Connections: Moderately Isolated (06/10/2023) Received from [facility] Social Connection and Isolation Panel [NHANES] Frequency of Communication with Friends and Family: Three times a week Frequency of Social Gatherings with Friends and Family: Three times a week Attends Cheondoism Services: Never Active Member of Clubs or Organizations: No Attends Club or Organization Meetings: Never Marital Status: Intimate Partner Violence: Not At Risk (06/10/2023) Received from [facility] Humiliation, Afraid, Rape, and Kick questionnaire Fear of Current or Ex-Partner: No Emotionally Abused: No Physically Abused: No Sexually Abused: No Depression: Not at risk (12/28/2024) Received from [facility] PHQ-2 Patient Health Questionnaire-2 Score: 0 Housing Stability: Unknown (06/10/2023) Received from [facility] Housing Stability Vital Sign Unable to Pay for Housing in the Last Year: No Number of Places Lived in the Last Year: Not on file Unstable Housing in the Last Year: No Utilities: Not on file Health Literacy: Not on file Allergies: Allergies[3] Weight: 88kg Visit Vitals BP 151/79 (BP Location: Left arm, Patient Position: Sitting) Pulse 74 Ht 1.702 m (5' 7 ) Wt 88 kg (194 lb) SpO2 96% BMI 30.38 kg/m?? Smoking Status Never BSA 2.04 m?? Meds: Medications Ordered Prior to Encounter[4] ROS: Cardio Basic Cardiovascular Symptoms: no lightheadedness, no leg edema, no syncope, no orthopnea, no PND, no claudication, Constitutional Constitutional: no fever, no night sweats, no significant weight gain, no significant weight loss, no exercise intolerance Eyes Eyes: no dry eyes, no irritation, no vision change ENMT Ears: no difficulty hearing, no ear pain Nose: no frequent nosebleeds, Mouth/Throat: no sore throat, no bleeding gums, no snoring, no dry mouth, no mouth ulcers, no oral abnormalities, no teeth problems Respiratory Respiratory: no cough, no wheezing, no coughing up blood, no sleep apnea Musculoskeletal Musculoskeletal: no muscle aches, no muscle weakness, joint pain+, no back pain, no swelling in theextremities Integumentary Skin no rash, no ulcer, no varicosities, no discoloration, no pruritus Neurologic Neurologic: no loss of consciousness, no weakness, no numbness, no seizures, no dizziness, no headaches Psychiatric Psych: no depression, feeling safe in relationship, no alcohol abuse, Hematologic/Lymphatic Hematologic/Lymphatic no swollen glands, no bruising Physical Exam: Constitutional General Appearance: well-nourished, well-developed, appears stated age Level of Distress: comfortable Eyes PHYLLIS Neck Neck: supple, trachea midline Carotid Arteries: bilateral normal upstroke, no bruits Jugular Veins: normal jugular venous pressure Thyroid: not enlarged Lungs Respiratory Effort: unlabored Chest Exam: normal curvature, no thoracic deformity Auscultation: clear, no wheezing, no rales, no rhonchi Cardiovascular Chest wall: Rate And Rhythm: regular Heart Sounds: normal S1, normal s2, no gallop Systolic Murmur: not heard Diastolic Murmur: not heard Extremities: no cyanosis, no edema, no peripheral signs of emboli Peripheral Pulses Radial Pulse: normal Abdomen Inspection and Palpation: soft, non distended, no bruit, non tender Neurologic Gait: normal gait Labs: @LABRESULTS@ No results found for: CHOLESTEROL TOTAL , HDL , LDL CALC , LDL DIRECT , TRIGLYCERIDES , TSH , T3 TOTAL , T4 TOTAL , THYROID PEROXIDASE AB , BNP EKG: No results found for this or any previous visit (from the past 4464 hours). Echo: Stress test: Coronary angiogram: @CATH@ Diagnostic Imaging: No images are attached to the encounter. Assessment and Plan: - New onset atrial flutter - History of CAD s/p PCI - History of diabetes mellitus type 2 Patient is currently in atrial flutter and so at this stage I have discussed with him the treatmentstrategy and would be suitable for a CTI ablation so that he can return to sinus rhythm. Unfortunately given his age he is at very high risk for atrial fibrillation and hence will need to be monitored following ablation to sinus. In the interim I will proceed with ordering an echocardiogram and will recommend that he finish his stress test once he is in sinus Franki Zimmerman MD Cardiac Electrophysiology [facility] [1] Past Medical History: Diagnosis Date Abnormal ECG Arrhythmia Cancer (CMS/HCC) Chronic kidney disease Coronary artery disease Diabetes mellitus (CMS/HCC) [2] Past Surgical History: Procedure Laterality Date CARDIAC CATHETERIZATION CORONARY STENT PLACEMENT [3] Allergies Allergen Reactions Cyhtofu-Ixb-Jna Reductase Inhibitors Other [4] Current Outpatient Medications on File Prior to Visit Medication Sig Dispense Refill Eliquis 5 mg tablet Take 5 mg by mouth twice a day. fenofibrate micronized (Lofibra) 134 mg capsule Take 134 mg by mouth in the morning. metFORMIN (Glucophage) 500 mg tablet Take 500 mg by mouth in the morning. metoprolol succinate XL (Toprol-XL) 25 mg 24 hr tablet Take 25 mg by mouth in the morning. tiZANidine (Zanaflex) 4 mg tablet Take 4 mg by mouth every 6 (six) hours if needed. traMADol (Ultram) 50 mg tablet Take 50 mg by mouth every 6 (six) hours if needed. No current facility-administered medications on file prior to visit. documented in this encounter Plan of Treatment DateTypeDepartmentCare Team (Latest Contact Info)Ktdbksxswlg08/03/2025 11:30 AM ESTHospital Encounter [facility] Vascular Lab [address] [place] [address] Franki Zimmerman MD [address] [place] [address] Atrial flutter, unspecified type (CMS/HCC)06/09/2025 11:30 AM EST - 06/09/2025 1:30 PM ESTSurgery [facility] Vascular Lab [address] [place] [phone] Franki Zimmerman MD [address] [place] [phone] Ablation atrial flutter [16216 (CPT??)]NameTypePriorityAssociated DiagnosesOrder ScheduleTransthoracic echo (TTE) completeEchocardiographyRoutine Pre-op evaluation Coronary artery disease, unspecified vessel or lesion type, unspecified whether angina present, unspecified whether [place] or transplanted heart Atypical atrial flutter (CMS/HCC) Expected: 05/11/2025 (Approximate), Expires: 05/11/2027Lexiscan Stress Myocardial Perfusion ImagingCardiac ServicesRoutine Pre-op evaluation Coronary artery disease, unspecified vessel or lesion type, unspecified whether angina present, unspecified whether [place] or transplanted heart Atypical atrial flutter (CMS/HCC) Expected: 05/11/2025 (Approximate), Expires: 05/11/2027documented as of this encounter Visit Diagnoses Diagnosis Pre-op evaluation- Primary Coronary artery disease, unspecified vessel or lesion type, unspecified whether angina present, unspecified whether [place] or transplanted heart Atypical atrial flutter (CMS/HCC) Atrial flutter, unspecified type (CMS/HCC) Atrial flutter, unspecified type (CMS/HCC) documented in this encounter Care Teams Team MemberRelationshipSpecialtyStart DateEnd Date Mason Johnson MD [address] [facility] [address] [place] [address] PCP - GeneralInternal Iaykkvjk55/22/25documented as of this encounter
--- OUTSIDE RECORDS SUMMARY | 2025-05-21 08:34 | XMS_ITS | Encounter Summary ---
Author Organization [facility] Address [address] [place] [address] Care Team Providers Care Primary Health Organisation Manager Name Role Phone Mason Johnson MD Primary Care Provider [phone] Mason Johnson MD Unavailable [phone] Encounter Details DateTypeDepartmentCare Team (Latest Contact Info)Milytphjtgl29/03/2025Abstract [facility] [place] [facility] [address] [facility] [address] [place] [address] Mason Johnson MD [address] [facility] [address] [place], [place] [address] Social History Tobacco UseTypesPacks/DayYears UsedDateSmoking Tobacco: NeverPassive [...] week06/10/2023How often do you attend bahai or gnosticism services?Never06/10/2023o you belong to any clubs or organizations such as bahai groups, unions, fraternal or athletic groups, or school groups?No 06/10/2023How often do you attend meetings of the clubs or organizations you belong to?Never06/10/2023re you , , , , never , or living with a partner?Hsfwovc9606/10/2023UDIT-CAnswerDate RecordedQ1: How often do you have a drink containing alcohol?4 or more times a week 07/29/2023verage Number of DrinksNot on file07/29/2023Frequency of Binge DrinkingNot on file07/29/2023Overall Financial Resource Strain (CARDIA)Answer Date RecordedHow hard is it for you to pay for the very basics like food, housing, medical care, and heating?Very hard06/10/2023HQ-2AnswerDate Recorded Patient Health Questionnaire-2 Zovgt769Fin[facility]ck[facility] [place] of Occupational Health - Occupational Stress QuestionnaireAnswerDate [...] RecordedSex Assigned at BirthNot on file Legal JgmFlxv3309/19/2022 7:58 PM EDTGender IdentityNot on fileSexual Orientation Not on filedocumented as of this encounter Plan of Treatment DateTypeDepartmentCare Team (Latest Contact Info)Jsxnhkinzor22/17/2025 11:45 AM ESTOffice Visit [facility] [place] [facility] [address] [facility] [address] [place] [phone] Mason Johnson MD [address] [facility] [address] [place] [address] 05/25/2025 9:20 AM ESTOffice Visit [facility] [address] [place] [address] Mayte Stevens, ELECTRIC STOP INSTALLER-ACCOUNT GENERAL MANAGER [address] [place] [address] 07/20/2025 8:30 AM ESTOffice Visit [facility] [address] [facility] [address] [place] [phone] Leela Schwartz MD [address] [facility] [address] [place], [place] [id number] documented as of this encounter Visit Diagnoses Not on filedocumented in this encounter Additional Health Concerns AssessmentNoted TimePHQ-9 Depression Total Score: 5:03 PM EST documented as of this encounter Care Teams Team MemberRelationshipSpecialtyStart DateEnd Date Mason Johnson MD [address] [place], [place] [phone] PCP - GeneralInternal Oflgglqn19/11/24 Mason Johnson MD [address] [place] [address] PCP - Medical [facility]07/08/2511documented as of this encounter
--- OUTSIDE RECORDS SUMMARY | 2025-05-21 08:34 | XMS_ITS ---
Author Organization [facility] Address [facility] [place] [id number] Care Team Providers Care Guest History Clerk Name Role Phone Juliet Tiradomart EVERETT Unavailable [phone] John Valladares MD Unavailable [phone] Natalie Cadena APRN.CONTENT CURATOR Unavailable [phone] Yordan Randolph MD Unavailable [phone] Marysol Purvis COKE WORKER Unavailable Unavailable Alex OLIVAS MD, Mason Regan Primary Care Provider [phone] Active Problems ProblemNoted DateDiagnosed DateDisorder of carbohydrate nidrhefzid30/07/2023 Stage 3 chronic kidney disease, unspecified whether stage 3a or 3b CKD2022 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
--- OUTSIDE RECORDS SUMMARY | 2025-05-21 08:34 | XMS_ITS | Encounter Summary ---
Author Organization [facility] Address [address] [place] [address] Care Team Providers Care Account Executive Trainee Name Role Phone Mason Johnson MD Primary Care Provider [phone] Encounter Details DateTypeDepartmentCare Team (Latest Contact Info)Ztooyyhbbnw21/04/2025Orders Only [facility] [address] [place] [address] Sangita Pack MA Atrial flutter, unspecified type (CMS/HCC) (Primary Dx) Social History Tobacco UseTypesPacks/DayYears UsedDateSmoking Tobacco: NeverSmokeless Tobacco: NeverAlcohol UseStandard Drinks/WeekCommentsYes0 (1 standard drink = 0.6 oz pure alcohol)2 bottles of beer per daySex and Gender InformationValueDate RecordedSex Assigned at LwabxSemn04/04/2025 2:10 PM ESTLegal EfiKgyh6501/03/2022 10:06 PM EDT Gender OiuxbislNgly47/04/2025 2:10 PM ESTSexual OrientationHeterosexual or Kywjbtdy75/04/2025 2:10 PM ESTdocumented as of this encounter Functional Status * BPAnswerDate of QnjsypjqhgZglbkj839/7905/11/2025 2:45 PM Awilda Martinez MA * PulseAnswerDate of WmnaxctvdkVpuhof6832/04/2025 2:45 PM Awilda Martinez MA * Patient PositionAnswerDate of WlpwnzdboiHrsdedElwllqc28/04/2025 2:45 PM EST Awilda Gallagher MA * BPAnswerDate of UwucfrkcqpTihgzi263/7905/11/2025 2:45 PM Awilda Martinez MA * PulseAnswerDate of ShdlhkvaerUifnix8616/04/2025 2:45 PM Awilda Martinez MA * EoE1DjuyhwQngv of BvnarqzfzjTlbcah1348/04/2025 2:45 PM Awilda Martinez MA * BP LocationAnswerDate of AssessmentAuthorLeft arm05/11/2025 2:45 PM Awilda Walters MA * Patient PositionAnswerDate of TkfsgernvlIqcyqrKzpkunq97/04/2025 2:45 PM Awilda Walters MA documented as of this encounter Plan of Treatment DateTypeDepartmentCare Team (Latest Contact Info)Ikfmxblktsd01/03/2025 11:30 AM ESTHospital Encounter [facility] [address] [place] [phone] Franki Zimmerman MD [address] [facility] [place] [phone] Atrial flutter, unspecified type (CMS/HCC)06/09/2025 11:30 AM EST - 06/09/2025 1:30 PM ESTSurgery [facility] [address] [place] [phone] Franki Zimmerman MD [address] [place] [phone] Ablation atrial flutter [58292 (CPT??)]documented as of this encounter Visit Diagnoses Diagnosis Atrial flutter, unspecified type (CMS/HCC)- Primary Atrial flutter, unspecified type (CMS/HCC) Atrial flutter, unspecified type (CMS/HCC) documented in this encounter Care Teams Team MemberRelationshipSpecialtyStart DateEnd Date Mason Johnson MD [address] [place] [address] PCP - GeneralInternal Wxnepker88/22/25documented as of this encounter
--- OUTSIDE RECORDS SUMMARY | 2025-05-21 08:34 | XMS_ITS | Clinical Summary ---
Author Organization [facility] Address [address] [place], [place] [address] Care Team Providers Care Watch And Clock Maker And Repairer Name Role Phone Christopher Tiradodavid EVERETT Unavailable [phone] John Valladares MD Unavailable [phone] Natalie Cadena APRN.[facility] Unavailable [phone] Yordan Randolph MD Unavailable [phone] Marysol Purvis ADJUNCT PHLEBOTOMY INSTRUCTOR Unavailable Unavailable Alex OLIVAS MD, Daniel B Primary Care Provider [phone] Allergies Active AllergyReactionsCriticalityNoted BovfWnrnuudjRhtpqab-Vzv-Urw Reductase InhibitorsGI Upset06/10/2023 Medications MedicationSigDispense QuantityRefillsLast FilledStart DateEnd DateStatus Aspirin 81 mg tab 81 mg every other day.Active fenofibrate (LOFIBRA) 134 mg capsule Take 134 mg by mouth once daily.03/02/2016Active ergocalciferol 50,000 unit capsule (VITAMIN D2, DRISDOL) TAKE 1 CAPSULE BY MOUTH QQWWFH7907/05/2022ctive metFORMIN (GLUCOPHAGE) 500 mg tablet Take 500 mg by mouth once daily.06/12/2022ctive metoprolol succinate ER (TOPROL XL) 25 mg 24 hr tablet Take 25 mg by mouth once daily.06/12/2022ctive latanoprost (XALATAN) 0.005 % ophthalmic solution instill 1 (ONE) DROP IN BOTH EYES AT SPIIDUZ4205/01/2023ctive cholecalciferol, Vitamin D3, (VITAMIN D3) 1,250 mcg [...] Active Problems ProblemNoted DateDiagnosed DateDisorder of carbohydrate wpijdwayfb23/07/2023 Stage 3 chronic kidney disease, unspecified whether stage 3a or 3b CKD2022 Cancer of the base of vmwkuu8908/21/2022olon jfkmqd8011/19/2012 Resolved Problems ProblemNoted DateDiagnosed DateResolved DateChemotherapy-induced neutropenia /Overlapping malignant neoplasm of colon Encounters DateTypeDepartmentCare JbjhVjdatnvkkpa15/30/2025 10:30 AM EDTOffice Visit Radiation Oncology [address] [place] [address] Yordan Randolph MD Head and neck cancer (HCC) (Primary Dx); Acquired xhperrikkikydj68/30/2025 10:00 AM EDTVisit (SP) Office Hematology/Oncology [address] [place] [address] John Valladares MD 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); Lung nodules; Stage 3 chronic kidney disease, unspecified whether stage 3a or 3b CKD (HCC); Primary osteoarthritis of hip, unspecified /30/9057Jhdylw43/23/2025 9:12 AM EDT - 04/29/2025 11:59 PM EDTHospital Encounter Radiology Pet CT [address] [place] [address] 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) [...] FLULAVAL, FLUVIRIN, FLUZONE)06/21/2015influenza (LAIV) vaccine, nasal, unspecified ktmmjvekiqm12/27/2022influenza (aIIV4) vaccine, age 65+ yr, quadrivalent, PF (FLUAD QUAD)06/20/2023,05/03/2022,06/15/2021influenza (ccIIV4) vaccine, age 6+ mo, quadrivalent, PF (FLUCELVAX)06/24/2018novel influenza (N5B2-90) vaccine, PF 06/20/2009 Social History Tobacco UseTypesPacks/DayYears UsedDateSmoking Tobacco: NeverPassive Smoke Exposure: NeverSmokeless Tobacco: Never Tobacco Cessation:Counseling Given: Not Answered Alcohol UseStandard Drinks/WeekCommentsYes0 (1 standard drink = 0.6 oz pure alcohol)daily 3 beersPHQ-2AnswerDate RecordedPHQ-2 jyjex509rea Deprivation IndexAnswerDate RecordedNational Score (1-100), lower number is lower zfix716111/07/2022State Score (1-10), lower number is lower yvja604 Data from: https://www.neighborhoodatlas.medicine.[facility].edu/. Last address used for [address] [place] [address]/07/2022Sex and Gender InformationValueDate RecordedSex Assigned at BirthNot on fileLegal GciVnne44/02/2012 10:15 AM EST Gender IdentityNot on fileSexual OrientationNot on file Last Filed Vital Signs Vital SignReadingTime TakenCommentsBlood Duzchmop188/5305/06/2025 10:08 AM EDT Xdwdk641105/06/2025 10:08 AM GGQUoofgfaldvk33.6 ??C (97.8 ??F)05/06/2025 10:08 AM EDTRespiratory Aunj1469 10:08 AM EDTOxygen Vkybyelymp82%05/06/2025 10:08 AM EDTInhaled Oxygen Concentration--Xpolhf47.8 kg (200 lb 2.8 oz)05/06/2025 10:08 AM PZKKdbgmv770.9 cm (5' 5.71 )05/06/2025 10:08 AM EDTBody Mass Index32.6 05/06/2025 10:08 AM EDT Plan of Treatment DateTypeDepartmentCare Team (Latest Contact Info)Yniyxcduhvt09/22/2026 8:15 AM EDTAppointment Radiology Pet CT [address] [place] [address] [place] [address] [place] Chest and neck with gfdsjaef04/29/2026 10:00 AM EDTOffice Visit Radiation Oncology [address] [place] [address] [place] [address] Yordan Randolph MD [address] [place] [address] [place] [address] 1 year follow up05/05/2026 10:40 AM EDTVisit (SP) Office Hematology/Oncology [address] [place] [address] [place] [address] John Valladares MD [address] [facility] [place] [address] 1 year follow up for lab and ct scan resultsHealth MaintenanceDue DateLast Done CommentsAnxiety Gqsvozpxy30/26/1962Depression Uxujgtyif58/26/1962DTaP,Tdap,Td Vaccine (1 - Tdap)10/31/1962Pneumococcal Vaccine: 50+ (1 of 1 - PCV)10/31/1993 Shingrix Vaccine (1 of 2)10/31/1993RSV Vaccine (1 - 1-dose 75+ series)10/31/2018 Advance Directive Lfhnlgkqja65/01/2025Medicare Advantage Annual Wellness Visit 5Covid-19 Vaccine ( - season)503/08/2020, 08/09/2020 Influenza Vaccine (#1)501/02/2025, 06/20/2023, 05/03/2022, Additional history existsDiabetes Urqvsezme13, 12/09/2024, 10/28/2024, Additional history exists Procedures Procedure NamePriorityDate/TimeAssociated DiagnosisCommentsCT CHEST W IVCON Zsmhgeo3104/29/2025 10:27 AM EDT 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 Stage 3 chronic kidney disease, unspecified whether stage 3a or 3b CKD (HCC) CT NECK SOFT TISSUE W LAAHKFybpxim79/23/2025 10:27 AM EDT 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 If you are unable to reach us at the number above, please feel free to contact [facility] at [phone]. Narrative 04/29/2025 2:07 PM EDT * * [...] images: No additional findings. Procedure Note Provider, [facility] [place] - 04/29/2025 * * *Final Report* * * DATE OF EXAM: Apr 29 2025 10:27AM [facility] 0539 - CT CHEST W [...] any questions regarding this interpretation, please call [phone]. If you are unable to reach us at the number above, please feel free to contact [facility] at [phone]. Authorizing ProviderResult TypeResult StatusVivek Abhyankar MDCT-PAMAFinal Result * CT NECK SOFT TISSUE W IVCON (04/29/2025 10:27 AM EDT)Anatomical Region LateralityModalityNeNUF Health [facility], Nuclear [facility] Eastpecimen (Source) Anatomical Location / LateralityCollection Method / [...] any questions regarding this interpretation, please call [phone]. If you are unable to reach us at the number above, please feel free to contact [facility] at [phone]. Narrative 04/29/2025 11:23 AM EDT * * [...] accession. Other: Not applicable. Procedure Note Provider, [facility] [place] - 04/29/2025 * * *Final Report* * * DATE OF EXAM: Apr 29 2025 10:27AM [facility] 0013 - CT NECK SOFT [...] any questions regarding this interpretation, please call [phone]. If you are unable to reach us at the number above, please feel free to contact [facility] at [phone]. Authorizing ProviderResult TypeResult StatusVivek Abhyankar MDCT-PAMAFinal Result * THYROID STIMULATING HORMONE (04/29/2025 9:13 AM EDT)ComponentValueRef Range Test MethodAnalysis TimePerformed AtPathologist SignatureTSH2.7600.270 - 4.200 mIU/L1 9:33 PM EDTCOHIOHEALTH [facility] MAIN LABSpecimen (Source) Anatomical Location / LateralityCollection Method / VolumeCollection Time Received TimeBloodBLOOD SPECIMEN / UnknownVenipuncture / Bbajhvd2004/29/2025 9:13 AM EDT1 9:22 AM EDT Narrative Authorizing ProviderResult TypeResult StatusG Jeyson Randolph MDLABORATORYFinal ResultPerforming OrganizationAddressCity/State/ZIP CodePhone Number [facility] [address] * (ABNORMAL) COMPREHENSIVE METABOLIC PANEL (04/29/2025 9:13 AM EDT)Component ValueRef RangeTest MethodAnalysis TimePerformed AtPathologist Signature Protein, Total7.16.3 - 8.0 g/dL04/29/2025 9:56 AM EDTNORTFORMERLY [facility] LABAlbumin4.23.9 - 4.9 g/dL04/29/2025 9:56 AM EDTNORTFORMERLY [facility] LABCalcium, Total10.28.5 - 10.2 mg/dL04/29/2025 9:56 AM EDTNORTFORMERLY [facility] LABBilirubin, Total0.50.2 - 1.3 mg/dL 04/29/2025 9:56 AM EDTNORTFORMERLY [facility] LABAlkaline Eipwtnubmfz5328 - 113 U/L1 9:56 AM EDTNORTFORMERLY [facility] XFSKKS0932 - 40 U/L1 9:56 AM EDTNORTFORMERLY [facility] ZLAETB8264 - 54 U/L1 9:56 AM EDTRALE[facility] BIQTvfparh188(H)74 - 99 mg/dL04/29/2025 9:56 AM EDTNORICHWOOD AREA COMMUNITY [facility] LABComment: The [place] Diabetes Association (ADA) provides guidance for cutoff [...] Standards of Medical Care in Diabetes 2016, [place] Diabetes Association. Diabetes Care. 2016.39(Suppl 1). JAW707 - 24 mg/dL04/29/2025 9:56 AM [facility] Creatinine1.070.73 - 1.22 mg/dL04/29/2025 9:56 AM [facility] TFSFzbapn736489 - 144 mmol/L1 9:56 AM [facility] LABPotassium4.53.7 - 5.1 mmol/L1 9:56 AM [facility] JDEKgjtteth31343 - 107 mmol/L1 9:56 AM EDT [facility] LUSGZ67140 - 30 mmol/L1 9:56 AM T [facility] LABAnion Eea993 - 15 mmol/L1 9:56 AM [facility] LABEstimated Glomerular Filtration Rate70 >=60 mL/min/1.73m 04/29/2025 9:56 AM [facility] LABComment:Estimated Glomerular Filtration Rate (eGFR) [...] VolumeCollection TimeReceived TimeBloodBLOOD SPECIMEN / UnknownVenipuncture / Ouzvyfp6804/29/2025 9:13 AM EDT1 9:22 AM EDT Narrative Authorizing ProviderResult TypeResult StatusJohn Valladares MDLABORATORYFinal ResultPerforming OrganizationAddressCity/State/ZIP CodePhone Number [facility] [address] [place] [address] * (ABNORMAL) COMPLETE BLOOD COUNT AND DIFFERENTIAL (04/29/2025 9:13 AM EDT) ComponentValueRef RangeTest MethodAnalysis TimePerformed AtPathologist SignatureWBC5.883.70 - 11.00 k/uL04/29/2025 9:25 AM EDTNORTFORMERLY [facility] LABRBC4.504.20 - 6.00 m/uL04/29/2025 9:25 AM EDTNORTFORMERLY [facility] OKQCanjqzyvhu17.213.0 - 17.0 g/dL04/29/2025 9:25 AM EDT [facility] AOSNjdtrlmpcx40.339.0 - 51.0 %04/29/2025 9:25 AM EDTNORTFORMERLY [facility] BZRKOW80.680.0 - 100.0 fL 04/29/2025 9:25 AM EDTNORTFORMERLY [facility] UKQHRQ57.326.0 - 34.0 pg04/29/2025 9:25 AM EDTNORTHCKALAMAZOO [facility] IJEBVHG71.830.5 - 36.0 g/dL04/29/2025 9:25 AM EDTNORTFORMERLY [facility] LABRDW-CV14.5 11.5 - 15.0 %04/29/2025 9:25 AM EDTNORTFORMERLY [facility] LAB Platelet Swcup234825 - 400 k/uL04/29/2025 9:25 AM EDTNORTFORMERLY [facility] LABMPV9.89.0 - 12.7 fL04/29/2025 9:25 AM [facility] LABNeutrophils %79.1%04/29/2025 9:25 AM EDH[facility] LABAbs Neut4.661.45 - 7.50 k/uL04/29/2025 9:25 AM ED[facility] LABLymphocytes %9.9%04/29/2025 9:25 AM [facility] LABAbs Lymph0.58(L)1.00 - 4.00 k/uL04/29/2025 9:25 AM [facility] LABMonocytes %7.8%04/29/2025 9:25 AM EDT [facility] LABAbs Mono0.46<0.87 k/uL04/29/2025 9:25 AM [facility] LABEosinophils %1.4%04/29/2025 9:25 AM [facility] LABAbs Eosin0.08<0.46 k/uL04/29/2025 9:25 AM [facility] LABBasophils %0.9%04/29/2025 9:25 AM [facility] LABAbs Baso0.05<0.11 k/uL04/29/2025 9:25 AM [facility] LABImmature Granulocytes %0.9% 04/29/2025 9:25 AM [facility] LABAbs Immature Gran 0.05<0.10 k/uL04/29/2025 9:25 AM EDH[facility] LABNRBC 0.0/100 WBC04/29/2025 9:25 AM [facility] LABAbsolute nRBC<0.01<0.01 k/uL04/29/2025 9:25 AM [facility] LABDiff CmioLqee06/23/2025 9:25 AM EDTNORTFORMERLY [facility] Specimen (Source)Anatomical Location / LateralityCollection Method / Volume Collection TimeReceived TimeBloodBLOOD SPECIMEN / UnknownVenipuncture / Zppwhnu8604/29/2025 9:13 AM EDT1 9:22 AM EDT Narrative Authorizing ProviderResult TypeResult StatusJohn Valladares MDLABORATORYFinal ResultPerforming OrganizationAddressCity/State/ZIP CodePhone Number [facility] [address] [facility] [place] [address] from Last 3 Months Insurance Care Teams Team MemberRelationshipSpecialtyStart DateEnd Mason Johnson II, MD [address] [place] [address] PCP - GeneralInternal Olyzmmvo02/30/[address] [place] [address] Registered DietitianNutrition08/20/22 John Valladares MD [address] [place] [address] PhysicianHematology/Oncology08/21/22 Natalie Cadena, PUBLIC HEALTH SANITARIAN.[facility] [address] [place] [address] Nurse PractitionerHematology/Oncology08/21/22 Yordan Randolph MD [address] [place] [address] PhysicianRadiation Oncology08/21/22 Marysol Purvis LSW Social Worker09/07/22
--- OUTSIDE RECORDS SUMMARY | 2025-05-21 08:34 | XMS_ITS | Encounter Summary ---
Author Organization [facility] Address [address] [place] [address] Care Team Providers Care Community Relations Police Lieutenant Name Role Phone Mason Johnson MD Primary Care Provider [phone] Mason Johnson MD Unavailable [phone] Reason for Visit * ReasonOnset DateCommentsMed Vsvqsx4805/12/2025 Encounter Details DateTypeDepartmentCare Team (Latest Contact Info)Quwfgbepdgw05/05/2025Refill [facility] [address] [facility] [address] [place] [address] Earlene Blanchard MA History of heart artery [...] times a week06/10/2023How often do you attend latter-day or hinduism services?Never06/10/2023o you belong to any clubs or organizations such as latter-day groups, unions, fraternal or athletic groups, or school groups?No 06/10/2023How often do you attend meetings of the clubs or organizations you belong to?Never06/10/2023re you , , , , never , or living with a partner?Zjhtgif2506/10/2023UDIT-CAnswerDate RecordedQ1: How often do you have a drink containing alcohol?4 or more times a week 07/29/2023verage Number of DrinksNot on file07/29/2023Frequency of Binge DrinkingNot on file07/29/2023Overall Financial Resource Strain (CARDIA)Answer Date RecordedHow hard is it for you to pay for the very basics like food, housing, medical care, and heating?Very hard06/10/2023HQ-2AnswerDate Recorded Patient Health Questionnaire-2 Oeihu191[facility] [place] of Occupational Health - Occupational Stress QuestionnaireAnswerDate [...] RecordedSex Assigned at BirthNot on file Legal DjsIelb8409/19/2022 7:58 PM EDTGender IdentityNot on fileSexual Orientation Not on filedocumented as of this encounter Plan of Treatment DateTypeDepartmentCare Team (Latest Contact Info)Bjlstkwkysj74/17/2025 11:45 AM ESTOffice Visit [facility] [place] [facility] [address] [facility] [address] [place] [phone] Mason Johnson MD [address] [facility] [address] [place] [address] 05/25/2025 9:20 AM ESTOffice Visit [facility] [place] [facility] [address] [place] [address] Mayte Stevens, ECOLOGIST TECHNICIAN-STOCKROOM ASSOCIATE [address] [place] [address] 07/20/2025 8:30 AM ESTOffice Visit [facility] [place] [facility] [address] [place] [phone] Leela Schwartz MD [address] [facility] [address] [place], [place] [phone] documented as of this encounter Visit Diagnoses Diagnosis History of heart artery stent documented in this encounter Additional Health Concerns AssessmentNoted TimePHQ-9 Depression Total Score: 5:03 PM EST documented as of this encounter Care Teams Team MemberRelationshipSpecialtyStart DateEnd Date Mason Johnson MD [address] [facility] [address] [place] [address] PCP - GeneralInternal Dobvgkir43/11/24 Mason Johnson MD [address] [facility] [address] [place] [address] PCP - Medical [place]07/08/2511documented as of this encounter
--- OUTSIDE RECORDS SUMMARY | 2025-05-21 08:34 | XMS_ITS | Encounter Summary ---
Author Organization [facility] Address [address] [place] [address] Care Team Providers Care Intern Brand Name Role Phone Mason Johnson MD Primary Care Provider [phone] Mason Johnson MD Unavailable [phone] Encounter Details DateTypeDepartmentCare Team (Latest Contact Info)Luejtnfxakn52/04/2025bstract [facility] [place] [facility] [address] [facility] [address] [place] [address] Mason Johnson MD [address] [facility] [address] [place], [place] [phone] Social History Tobacco UseTypesPacks/DayYears UsedDateSmoking Tobacco: NeverPassive [...] times a week06/10/2023How often do you attend scientologist or caodaism services?Never06/10/2023o you belong to any clubs or organizations such as scientologist groups, unions, fraternal or athletic groups, or school groups?No 06/10/2023How often do you attend meetings of the clubs or organizations you belong to?Never06/10/2023re you , , , , never , or living with a partner?Yoykwsl5606/10/2023UDIT-CAnswerDate RecordedQ1: How often do you have a drink containing alcohol?4 or more times a week 07/29/2023verage Number of DrinksNot on file07/29/2023Frequency of Binge DrinkingNot on file07/29/2023Overall Financial Resource Strain (CARDIA)Answer Date RecordedHow hard is it for you to pay for the very basics like food, housing, medical care, and heating?Very hard06/10/2023HQ-2AnswerDate Recorded Patient Health Questionnaire-2 Ogyts529Finmountain view hospital [place] of Occupational Health - Occupational Stress QuestionnaireAnswerDate [...] RecordedSex Assigned at BirthNot on file Legal WerJgmj2909/19/2022 7:58 PM EDTGender IdentityNot on fileSexual Orientation Not on filedocumented as of this encounter Plan of Treatment DateTypeDepartmentCare Team (Latest Contact Info)Tqakdgyuxey09/17/2025 11:45 AM ESTOffice Visit [facility] [place] [facility] [address] [facility] [address] [place] [phone] Mason Johnson MD [address] [facility] [address] [place] [address] 05/25/2025 9:20 AM ESTOffice Visit [facility] [address] [place] [address] Mayte Stevens, DIGITAL SALES ASSISTANT-FOOD PHOTOGRAPHER [address] [place] [address] 07/20/2025 8:30 AM ESTOffice Visit [facility] [address] [facility] [address] [place] [phone] Leela Schwartz MD [address] [facility] [address] [place], [place] [phone] documented as of this encounter Visit Diagnoses Not on filedocumented in this encounter Additional Health Concerns AssessmentNoted TimePHQ-9 Depression Total Score: 5:03 PM EST documented as of this encounter Care Teams Team MemberRelationshipSpecialtyStart DateEnd Date Mason Johnson MD [address] [place], [place] [phone] PCP - GeneralInternal Vbgfoipu56/11/24 Mason Johnson MD [address] [place] [address] PCP - Medical [place]07/08/2511documented as of this encounter
--- OUTSIDE RECORDS SUMMARY | 2025-05-21 08:34 | XMS_ITS | Encounter Summary ---
Author Organization [facility] Address [address] [place] [address] Care Team Providers Care Cover Mat Machine Operator Name Role Phone Mason Johnson MD Primary Care Provider [phone] Encounter Details DateTypeDepartmentCare Team (Latest Contact Info)Zygvkiuswfz39/05/2025Travel Social History Tobacco UseTypesPacks/DayYears UsedDateSmoking Tobacco: NeverSmokeless Tobacco: NeverAlcohol UseStandard Drinks/WeekCommentsYes0 (1 standard drink = 0.6 oz pure alcohol)2 bottles of beer per daySex and Gender InformationValueDate RecordedSex Assigned at UitduLhmr64/04/2025 2:10 PM ESTLegal XzkXgeo8301/03/2022 10:06 PM EDT Gender JtmlozyyAtbd69/04/2025 2:10 PM ESTSexual OrientationHeterosexual or Oiksoihh89/04/2025 2:10 PM ESTdocumented as of this encounter Functional Status * Audit Alcohol ScreeningQuestionAnswerDate of AssessmentAuthorHow often do you have a drink containing alcohol? 3:17 PM Shahana Seaman RN * Audit Alcohol ScreeningQuestionAnswerDate of AssessmentAuthorHow often do you have a drink containing alcohol? 3:17 PM Shahana Seaman RN documented as of this encounter Plan of Treatment DateTypeDepartmentCare Team (Latest Contact Info)Wukvzstxjzr70/03/2025 11:30 AM ESTHospital Encounter [facility] Vascular Lab [address] [place] [address] Franki Zimmerman MD [address] [place] [address] Atrial flutter, unspecified type (CMS/HCC)06/09/2025 11:30 AM EST - 06/09/2025 1:30 PM ESTSurgery [facility] Vascular Lab [address] [place] [address] Franki Zimmerman MD [address] [place] [address] Ablation atrial flutter [35578 (CPT??)]documented as of this encounter Visit Diagnoses Not on filedocumented in this encounter Care Teams Team MemberRelationshipSpecialtyStart DateEnd Date Mason Johnson MD [address] [facility] [address] [place] [address] PCP - GeneralInternal Nkbqdbtl06/22/25documented as of this encounter
--- OUTSIDE RECORDS SUMMARY | 2025-05-21 08:34 | XMS_ITS | Clinical Summary ---
Author Organization [facility] Address [address] [place] [address] Care Team Providers Care Pensions Retirement Plan Specialist Name Role Phone Mason Johnson MD Primary Care Provider [phone] Mason Johnson MD Unavailable [phone] Allergies Active AllergyReactionsCriticalityNoted DateCommentsStatinsGI intolerance 06/10/2023 [...] DateHistory of heart artery stent04/30/2025Pseudogout involving multiple jlnqww2203/26/2025Spondylosis of cervical region without myelopathy or hzchudgplbexi41/21/2025Primary osteoarthritis of left hip 10/26/2024Separation of right acromioclavicular joint10/16/2024Hyperlipidemia 12/16/2023Throat gfwyak8412/04/2023Neck muscle spasm11/20/2023 Assessment & Plan (11/20/2023 11:00 [...] it. Educated and counseled on it. 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 GERD (gastroesophageal reflux disease)01/15/2023History of WA (myocardial infarction)01/15/2023HTN (hypertension)01/15/2023 Assessment & Plan (12/16/2023 [...] OJEDA (nonalcoholic steatohepatitis)01/15/2023iastasis recti01/15/2023ancer of base of iohfwm7912/15/2022 Overview (01/15/2023): Diagnosed 07/31/22. Diffusely p16 positive poorly differentiated SCCA. CT shows >5 cm tongue basemass and multiple morphologically abnormal, but normal sized LN in LT zone 2. Radiation completed 10/22/22. Monthly checks began 11/2022. Metastatic cancer to cervical lymph nodes12/15/2022Stage 2 chronic kidney cklgaxe2311/01/2022 Assessment & Plan (12/16/2023 9:46 AM EDT): CKD 2, likely age related. Monitor. Avoid NSAIDS. Chemotherapy-induced dqlzapadhae91/14/2023olon wobdzb3411/19/2012 Resolved Problems ProblemNoted DateDiagnosed DateResolved DateType 2 diabetes mellitus without ggfcqadpdoequ90/04/202302/Diastasis rectiisorder of eyjbwfzm08lucose hmvexsndqed80History of colonic jwngcz63History of malignant neoplasm of colon 8164Xsdxzioffddiwsbfutny20/11/202307/11/2023Raynaud's syndrome Vitamin D njxylfeopn56Overweight12/15/2022 12/15/2022cute pain of right obnjjubz00asal cell carcinoma (BCC) of facehemotherapy-induced dmifojfdcbq46/14/2023 01/15/2023 Encounters DateTypeDepartmentCare FjalMwhbnzbfxzv07/13/2025bstract [facility] [place] [facility] [address] [facility] [address] [place] [address] Mason Johnson MD 05/19/2025linisync Result Encounter [facility] External Department Unsolicited Provider, Generic External Data 05/13/2025Telephone [facility] [place] [facility] [address] [facility] [address] [place] [address] Mason Johnson MD 05/13/2025bstract [facility] [place] [facility] [address] [facility] [address] [place] [address] Mason Johnson MD 05/12/2025Refill [facility] [place] [facility] [address] [place] [address] [place] [address] aErlene Blanchard MA History of heart artery stent05/11/2025bstract [facility] [place] [facility] [address] [facility] [address] [place] [address] Mason Johnson MD 05/10/2025Patient Outreach [facility] [address] [place] [phone] Vibha Rojo RN 05/10/2025Telephone [facility] [place] [facility] [address] [place] [address] ElenaElodia LPN 05/10/2025bstract [facility] [place] [facility] [address] [place] [address] Mason Johnson MD 05/03/2025Telephone [facility] [place] [facility] [address] [place] [address] Mason Johnson MD 05/03/2025Telephone [facility] [address] [facility] [place] [address] Georgiana Armenta MA Cardiac Ylmjwmwdg95/24/2025 11:45 AM EDTOffice Visit [facility] [place] [facility] [address] [facility] [address] [place] [address] Mason Johnson MD Primary osteoarthritis of left hip (Primary Dx); 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 Mechelle Boyer, DO 04/29/2025linisync Result Encounter [facility] External Department Unsolicited Provider, Generic External Data 04/29/2025linisync Result Encounter [facility] External Department Unsolicited Provider, Generic External Data 04/29/2025linisync Result Encounter [facility] External Department Unsolicited Provider, Generic External Data 04/29/2025Telephone [facility] [address] [place] [phone] Jr. Mechelle Boyer, Lab Work04/28/2025 9:00 AM EDTOffice Visit [facility] [address] [place] [address] Jr. Mechelle Boyer, DO Primary osteoarthritis of left hip (Primary Dx); Pre-op tlrygrnhxe17/22/2025Telephone [facility] [address] [place] [address] Georgiana Armenta MA Hold Nktipt6704/28/2025amboo flowsheet [facility] [address] [place] [address] Jr. Mechelle Boyer, DO 04/28/20259036Odyyje07/14/2025 8:00 AM EDTOffice Visit [facility] [place] [facility] [address] [place] [address] Leela Schwartz MD 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)04/20/2025Telephone [facility] [place] [facility] [address] [place] [address] Mason Johnson MD 04/20/2025amboo flowsheet [facility] [place] [facility] [address] [place] [address] Leela Schwartz MD 04/20/20255205Pcbemw52/13/2025Telephone [facility] [address] [place] [address] Jr. Mechelle Boyer, DO hip THA04/14/2025 1:15 PM EDTOffice Visit [facility] [address] [place] [address] Jr. Mechelle Boyer, DO Left hip pain (Primary Dx); Pseudogout involving multiple joints; Primary osteoarthritis of left hip04/14/2025 1:10 PM EDTAncillary Procedure [facility] [address] [place] [address] 04/14/2025amboo flowsheet [facility] [address] [place] [address] Jr. Mechelle Boyer DO 04/14/20258776Npaiks82/25/2025bstract [facility] [place] [facility] [address] [facility] [address] [place] [address] Mason Johnson MD 03/30/2025bstract [facility] [address] [facility] [address] [place] [address] Mason Johnson MD 03/26/2025 11:00 AM EDTOffice Visit 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 [address] [facility] [address] [place] [address] Mason Johnson MD mri requestfrom Last 3 Months Immunizations ImmunizationAdministration DatesNext DueInfluenza, High Dose Seasonal, Preservative Free05/19/2019Influenza, High-dose Seasonal, Quadrivalent, Preservative Free07/15/2024Influenza, Seasonal, Quadrivalent, Adjuvanted 06/20/2023,05/03/2022,06/15/2021Influenza, injectable, MDCK, preservative free, jlskgfrxosjy17/18/2018Influenza, seasonal, atlrutrhzk09/01/2022Influenza, seasonal, injectable, preservative free06/21/2015Novel ftmwehukr-H9N6-99, preservative-free06/20/2009 Family History * Patient is adopted [...] times a week06/10/2023How often do you attend druze or muslim services?Never06/10/2023o you belong to any clubs or organizations such as druze groups, unions, fraternal or athletic groups, or school groups?No 06/10/2023How often do you attend meetings of the clubs or organizations you belong to?Never06/10/2023re you , , , , never , or living with a partner?Kbuinpe8606/10/2023UDIT-CAnswerDate RecordedQ1: How often do you have a drink containing alcohol?4 or more times a week 07/29/2023verage Number of DrinksNot on file07/29/2023Frequency of Binge DrinkingNot on file07/29/2023Overall Financial Resource Strain (CARDIA)Answer Date RecordedHow hard is it for you to pay for the very basics like food, housing, medical care, and heating?Very hard06/10/2023HQ-2AnswerDate Recorded Patient Health Questionnaire-2 Ltmbm946Fin[facility] [place] of Occupational Health - Occupational Stress QuestionnaireAnswerDate [...] RecordedSex Assigned at BirthNot on file Legal WkaYdhl1409/19/2022 7:58 PM EDTGender IdentityNot on fileSexual Orientation Not on file Last Filed Vital Signs Vital SignReadingTime TakenCommentsBlood Heezkxsf598/7610 11:43 AM EDT Jlxfa352104/30/2025 11:43 AM ANTRomejwqtaln38.4 ??C (97.5 ??F)12/16/2023 9:07 AM EDTRespiratory Rate--Oxygen Iceqrowbjt83%04/30/2025 11:43 AM EDTInhaled Oxygen Concentration--Hndpdx45.4 kg (197 lb)04/30/2025 11:43 AM CAURfaejr211.2 cm (5' 7 )04/30/2025 11:43 AM EDTBody Mass Index30.8504/30/2025 11:43 AM EDT Plan of Treatment DateTypeDepartmentCare Team (Latest Contact Info)Qglrsimdmdo85/17/2025 11:45 AM ESTOffice Visit [facility] [place] [facility] [address] [facility] [address] [place] [phone] Mason Johnson MD [address] [facility] [address] [place] [address] 05/25/2025 9:20 AM ESTOffice Visit [facility] [address] [place] [address] Mayte Stevens, 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 KETTLE 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 AND [employer]UCC[employer] WORKER [address] [place], [place] [phone] 07/20/2025 8:30 AM ESTOffice Visit [facility] [place] [facility] [address] [place] [phone] Leela Schwartz MD [address] [facility] [address] [place] [address] Health MaintenanceDue DateLast DoneCommentsPneumococcal Vaccine: 65+ Years (1 of 2 - PCV)10/31/1962COVID-19 Vaccine (3 - Moderna risk series)10/04/2020 09/06/2020, 1Diabetes: Retinopathy Pcrxusfkb55/01/625919/07/2022 Influenza Vaccine (#1)501/02/2025, 06/20/2023, 05/03/2022, Additional history existsDiabetes: Hemoglobin A1C/10/2024, 08/31/2024, 11/20/2023, Additional history existsMedicare Annual Wellness (AWV)08/31/2025 08/31/2024, 3Diabetes: Urine Protein Xyvldeank34/, 02/06/2023, 02/06/2023 Procedures Procedure NamePriorityDate/TimeAssociated DiagnosisCommentsCA ECHO DOPPLER XFRFNSUF70/12/2025 4:11 PM EST XR HIP 1 VW LEFT04/29/2025 6:23 PM EDT ECG 12-LEAD04/29/2025 12:39 PM EDT MHPT WXRZDJGRBSISQujimzv04/23/2025 12:17 PM EDT ALL CBC WITH AUTO NEYKXworhma86/23/2025 12:17 PM EDT [facility] CGMNHrkjmyf92/23/2025 12:17 PM EDT SRMCOH PROTHROMBIN TIME INR W/O HXMYJwwyhaf11/23/2025 12:17 PM EDT [facility] CMP (CMP) (FOR REMOTE [facility] USE)Xpdwbpx3404/29/2025 12:17 PM EDT URINE CULTURE - ENXAOfhksno21/23/2025 12:06 PM EDT [facility] UA (CLEAN/CATCH) MICROSCOPIC IF PSNEWBBEHiwnmhg96/23/2025 12:06 PM EDT CULTURE, URINE, HVTBACDNxdhofc89/23/2025 12:06 PM EDT XR HIP 2 OR 3 VW OQHEDpnrtvq47/08/2025 1:06 PM EDT Left hip pain COMPREHENSIVE METABOLIC LCVCHSykqduv08/19/2025 11:19 AM EDT Primary hypertension 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, without long-term current use of insulin (HCC) Moderate mixed hyperlipidemia not requiring statin therapy MICROALBUMIN / CREATININE URINE ZKFVKTndcanp56/19/2025 11:19 AM EDT Primary hypertension 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, without long-term current use of insulin (HCC) Moderate mixed hyperlipidemia not requiring statin therapy LIPID IALTLNkdudbu43/19/2025 11:19 AM EDT Primary hypertension 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, without long-term current use of insulin (HCC) Moderate mixed hyperlipidemia not requiring statin therapy MR HIP LEFT WO IV ZXAQDKNW57/05/2025 3:44 PM EDT POCT GLYCATED HEMOGLOBIN, ATZJVEbokxwg98/04/2025 11:30 AM EDT Inflammatory arthritis from Last 3 Months or Most Recently Relevant to Health Maintenance Results * CA ECHO DOPPLER COMPLETE (05/19/2025 4:11 PM EST)Anatomical RegionLaterality ModalityOtherSpecimen (Source)Anatomical Location / LateralityCollection Method / VolumeCollection TimeReceived Time05/19/2025 4:11 PM EST Narrative 05/19/2025 4:12 PM EST [facility] ?[address] ? [place] [address] ? Cardiology Report ? Signed ? Patient: ANN ROOT ?MR#: [id number] ?? : 1945 ?Acct:[id number] ?? Age/Sex: 79 / M ?ADM Date: 05/19/25 ?? Loc: CARD ? Attending Dr: Franki Zimmerman M.D. ? Ordering Physician: Franki Zimmerman M.D. ?? Date of Service: 05/19/25 ?? Procedure(s): CA echo doppler complete ?? Accession Number(s): [id number] ? cc: MASON JOHNSON ; Franki Zimmerman M.D. ? Patient Name: ? ANNDEEPAK ROOT ? MR#: [id number] ? : 1945 ? Exam Date: 05/19/2025 ?? Ordering Doctor: FRANKI ZIMMERMAN ? ECHOCARDIOGRAM REPORT ? PROCEDURE: ? CA ECHO DOPPLER COMPLETE ? INDICATIONS: ? CAD, Atrial flutter ? COMPARISON: ? None. ? DESCRIPTION: ? COMPLETE ECHOCARDIOGRAM Real-time transthoracic ?? echocardiography with 2D, M-mode, spectral and color flow Doppler performed. ? QUALITY: ? Technical quality was good. ? LEFT VENTRICLE: ? Normal chamber size. Mild concentric left ventricular ?? hypertrophy. ?? LV EF: ? Global left ventricular systolic function is normal. Calculated ?? left ventricular ejection fraction is 60-65%. ??No significant wall motion ?? abnormalities. ?? DIASTOLIC: ? Not adequately assessed due to heart rhythm. ?? ATRIAL SEPTUM: ? Inadequately seen. ?? LEFT ATRIUM: ? Mild dilatation. ?? RIGHT ATRIUM: ? Moderate dilatation. ?? RIGHT VENTRICLE: ? Normal chamber size. Normal right ventricular systolic ?? function. ? TRICUSPID VALVE: ? Normal mobility and thickness. No stenosis with mild ?? regurgitation. No evidence of pulmonary hypertension. RVSP is 27mmHg. ? MITRAL VALVE: ? Normal mobility and thickness. ?? No evidence of mitral valve ?? stenosis. ??There is no mitral annular calcification. Trivial mitral ?? regurgitation. ? AORTIC VALVE: ? Normal trileaflet appearance. Mildly calcified aortic valve. ?? Normal leaflet mobility. ??No evidence of aortic valve stenosis. Mild aortic ?? regurgitation. ? AORTIC ROOT: ? The aortic root is upper normal limits in size and measures ?? 3.8cm. ? PULMONIC VALVE: ? Normal thickness and mobility. No stenosis. No ?? regurgitation. ? PERICARDIUM: ? No evidence of pericardial effusion. ? IVC: ? Collapses with inspiration. The IVC is normal in size measuring ?? 2.0cm. ? CONCLUSION: ? 1. Global left ventricular systolic function is normal; visually estimated ?? ejection fraction is 60 to 65% ?? 2. Normal right ventricular size and systolic function ?? 3. Mild left ventricular hypertrophy ?? 4. Biatrial dilatation ?? 5. Mild tricuspid regurgitation ?? 6. Mild aortic valve regurgitation ? Adult Echocardiography Procedure Report ?? Left Ventricle ?? LVEDD (3.7 - 5.6 cm): ? 4.29 cm ?? LVESD (2.2 - 4.0 cm): ? 2.67 cm ?? LVIVS thickness (0.6 - 1.2 cm): ? 1.22 cm ?? LVPW thickness (0.5 - 1.0 cm): ? 1.06 cm ?? e': ? 0.15 m/s ?? E - e': ? 5.61 ?? LVOT Max Gradient: ? 4.14 mm[Hg] ?? LVOT Area (cm2): ? 1.02 m/s ?? Peak Velocity (LVOT): ? 1.02 m/s ?? Mean Velocity (LVOT): ? 0.65 m/s ?? LVOT Diameter ? 2.14 cm ?? Left Ventricular Ejection Fraction: ? 64.83 % ?? Left Atrium ?? LA Volume Index (2D A2C): ? 40.00 ml/m2 ?? Left Atrium Systolic Dimension: ? 3.98 cm ?? Mitral Valve ?? MV E to A Ratio: ? 1.90 ?? Mitral Valve A-Wave Peak Velocity: ? 0.46 m/s ?? Mitral Valve E-Wave Peak Velocity: ? 0.87 m/s ?? Right Ventricle ?? RV Internal Diastolic Dimension: ? 3.44 cm ?? Aorta ?? AO Root Diam: ? 3.81 cm ?? Ascending Ao Diam: ? 3.68 cm ?? Aortic Valve ?? AoV Area (Peak Ruben): ? 3.23 cm2, 3.23 cm2 ?? AoV Area (VTI): ? 3.35 cm2, 3.35 cm2 ?? Deceleration [place]: ? 1.21 m/s2 ?? Pressure Half-Time: ? 725.67 ms ?? Peak Velocity(Antegrade Flow): ? 1.13 m/s ?? Peak Gradient(Antegrade Flow): ? 5.09 mm[Hg] ?? Mean Velocity(Antegrade Flow): ? 0.75 m/s ?? Mean Gradient(Antegrade Flow): ? 2.60 mm[Hg] ?? Velocity Time Integral: ? 21.53 cm ?? Tricuspid Valve ?? Peak Velocity (Regurgitant Flow): ? 2.15 m/s, 2.45 m/s, 2.18 m/s ?? Pulmonic Valve ?? Peak Velocity: ? 0.69 m/s ?? Peak Gradient: ? 2.00 mm[Hg], 1.85 mm[Hg] ?? Right Atrium ?? Right Atrium Systolic Pressure: ? 56.07 ml, 56.07 ml ? Dictated by: Guanaco Gramajo M.D. on 05/19/2025 at 16:04 ? Approved by: Guanaco Gramajo M.D. on 05/19/2025 at 16:10 ? Dictated By: ?Guanaco Gramajo M.D. ? Signed By: ?05/19/25 1612 ? DD/ 1611 ? TD/TT: ? [employer] Production Supervisor: Procedure Note Radiology, Radiologist, MD - 05/19/2025 [place] [address] Cardiology Report Signed Patient: ANN ROOT DMR#: [id number] : 4Acct:[id number] Age/Sex: 79 / MADM Date: 05/19/25 Loc: CARD Attending Dr: Franki Zimmerman M.D. Ordering Physician: Franki Zimmerman M.D. Date of Service: 05/19/25 Procedure(s): CA echo doppler complete Accession Number(s): [id number] cc: MASON JOHNSON ; Franki Zimmerman M.D. Patient Name: ANN ROOT MR#: [id number] : 1945 Exam Date: 05/19/2025 Ordering Doctor: FRANKI ZIMMERMAN ECHOCARDIOGRAM REPORT PROCEDURE: CA ECHO DOPPLER COMPLETE INDICATIONS: CAD, Atrial flutter COMPARISON: None. DESCRIPTION: COMPLETE ECHOCARDIOGRAM Real-time transthoracic echocardiography with 2D, M-mode, spectral and color flow Dopplerperformed. QUALITY: Technical quality was good. LEFT VENTRICLE: Normal chamber size. Mild concentric left ventricular hypertrophy. LV EF: Global left ventricular systolic function is normal. Calculated left ventricular ejection fraction is 60-65%. No significant wall motion abnormalities. DIASTOLIC: Not adequately assessed due to heart rhythm. ATRIAL SEPTUM: Inadequately seen. LEFT ATRIUM: Mild dilatation. RIGHT ATRIUM: Moderate dilatation. RIGHT VENTRICLE: Normal chamber size. Normal right ventricularsystolic function. TRICUSPID VALVE: Normal mobility and thickness. No stenosis with mild regurgitation. No evidence of pulmonary hypertension. RVSP is 27mmHg. MITRAL VALVE: Normal mobility and thickness. No evidence of mitralvalve stenosis. There is no mitral annular calcification. Trivial mitral regurgitation. AORTIC VALVE: Normal trileaflet appearance. Mildly calcified aorticvalve. Normal leaflet mobility. No evidence of aortic valve stenosis. Mildaortic regurgitation. AORTIC ROOT: The aortic root is upper normal limits in size andmeasures 3.8cm. PULMONIC VALVE: Normal thickness and mobility. No stenosis. No regurgitation. PERICARDIUM: No evidence of pericardial effusion. IVC: Collapses with inspiration. The IVC is normal in size measuring 2.0cm. CONCLUSION: 1. Global left ventricular systolic function is normal; visually estimated ejection fraction is 60 to 65% 2. Normal right ventricular size and systolic function 3. Mild left ventricular hypertrophy 4. Biatrial dilatation 5. Mild tricuspid regurgitation 6. Mild aortic valve regurgitation Adult Echocardiography Procedure Report Left Ventricle LVEDD (3.7 - 5.6 cm): 4.29 cm LVESD (2.2 - 4.0 cm): 2.67 cm LVIVS thickness (0.6 - 1.2 cm): 1.22 cm LVPW thickness (0.5 - 1.0 cm): 1.06 cm e': 0.15 m/s E - e': 5.61 LVOT Max Gradient: 4.14 mm[Hg] LVOT Area (cm2): 1.02 m/s Peak Velocity (LVOT): 1.02 m/s Mean Velocity (LVOT): 0.65 m/s LVOT Diameter 2.14 cm Left Ventricular Ejection Fraction: 64.83 % Left Atrium LA Volume Index (2D A2C): 40.00 ml/m2 Left Atrium Systolic Dimension: 3.98 cm Mitral Valve MV E to A Ratio: 1.90 Mitral Valve A-Wave Peak Velocity: 0.46 m/s Mitral Valve E-Wave Peak Velocity: 0.87 m/s Right Ventricle RV Internal Diastolic Dimension: 3.44 cm Aorta AO Root Diam: 3.81 cm Ascending Ao Diam: 3.68 cm Aortic Valve AoV Area (Peak Ruben): 3.23 cm2, 3.23 cm2 AoV Area (VTI): 3.35 cm2, 3.35 cm2 Deceleration [place]: 1.21 m/s2 Pressure Half-Time: 725.67 ms Peak Velocity(Antegrade Flow): 1.13 m/s Peak Gradient(Antegrade Flow): 5.09 mm[Hg] Mean Velocity(Antegrade Flow): 0.75 m/s Mean Gradient(Antegrade Flow): 2.60 mm[Hg] Velocity Time Integral: 21.53 cm Tricuspid Valve Peak Velocity (Regurgitant Flow): 2.15 m/s, 2.45 m/s, 2.18 m/s Pulmonic Valve Peak Velocity: 0.69 m/s Peak Gradient: 2.00 mm[Hg], 1.85 mm[Hg] Right Atrium Right Atrium Systolic Pressure: 56.07 ml, 56.07 ml Dictated by: Guanaco Gramajo M.D. on 05/19/2025 at 16:04 Approved by: Guanaco Gramajo M.D. on 05/19/2025 at 16:10 Dictated By: Guanaco Gramajo M.D. Signed By:05/19/25 1612 DD/ 161 TD/TT: [employer] Supervisor: Authorizing ProviderResult TypeResult StatusGeneric External Data Provider CLINISYNC IMAGINGFinal Result * XR hip left 1 view (04/29/2025 6:23 PM EDT)Anatomical RegionLateralityModality Lower Extremities, HipLeftRadiographic ImagingSpecimen (Source)Anatomical Location / LateralityCollection Method / VolumeCollection TimeReceived Time 04/29/2025 6:23 PM EDT Narrative 04/29/2025 6:25 PM EDT [facility] ?[address] ? [place] [address] ?XRay Report ? Signed ? Patient: ROOT,ANN D ?MR#: [id number] ?? : 1945 ?Acct:[id number] ?? Age/Sex: 79 / M ?ADM Date: 04/29/25 ?? Loc: LAB ? Attending Dr: Mechelle Boyer D.O. ? Ordering Physician: Mechelle Boyer D.O. ?? Date of Service: 04/29/25 ?? Procedure(s): XR hip LT 1V w/ pelvis ?? Accession Number(s): [id number] ? cc: MASON JOHNSON ; Mechelle Boyer D.O. ? [facility] ? [address] ? [place] [address] ? Patient Name: ?? ANN ROOT ? MRN: [facility]:[id number] ? date: 1945 ?Sex: M ?? Assigned Patient Location: LAB ?? Current Patient Location: LAB ?? Accession/Order Number: [id number] ?? Exam Date: 04/29/2025 ??12:41 ?Report Date: [...] Dictation Location: RADIO-PC-29 ? Electronically authenticated by: [id number] ??Y ?? Date: 04/29/2025 ??18:23 ? Dictated By: ?Hernandez Rosales M.D. ? Signed By: ?04/29/ 1825 ? DD/DT: 04/29/ 1823 ? TD/TT: ? [employer] Supervisor: Procedure Note Radiology, Radiologist, - 04/30/2025 [facility] [place] [id number] XRay Report Signed Patient: ANN ROOT DMR#: [id number] : 4Acct:[id number] Age/Sex: 79 / MADM Date: 04/29/25 Loc: LAB Attending Dr: Mechelle Boyer D.O. Ordering Physician: Mechelle Boyer D.O. Date of Service: 04/29/25 Procedure(s): XR hip LT 1V w/ pelvis Accession Number(s): [id number] cc: MASON JOHNSON ; Mechelle Boyer D.O. [facility] [place] [id number] Patient Name: ANN ROOT MRN: [id number] date: 1945 Sex: M Assigned Patient Location: LAB Current Patient Location: LAB Accession/Order Number: [id number] Exam Date: 04/29/2025 12:41 Report Date: 04/29/2025 [...] Rosales M.D. 04/29/2025 6:23 PM Dictation Location: [place] [address] Electronically authenticated by: [id number] Y Date: 8:23 Dictated By: Hernandez Rosales M.D. Signed By:04/29/251824 DD/ 22 TD/TT: [employer] Supervisor: Authorizing ProviderResult TypeResult StatusGeneric External Data ProviderIMG XR PROCEDURESFinal Result * ECG 12-LEAD (04/29/2025 12:39 PM EDT)Anatomical RegionLateralityModalityOther Specimen (Source)Anatomical Location / LateralityCollection Method / Volume Collection TimeReceived Time04/29/2025 12:39 PM EDT Narrative 04/29/2025 7:20 PM EDT [facility] ?[address] ? [place], [facility] ? Electrocardiograph Report ? Signed ? Patient: ROOT,ANN D ?MR#: [id number] ?? : 1945 ?Acct:[id number] ?? Age/Sex: 79 / M ?ADM Date: 04/29/25 ?? Loc: LAB ? Attending Dr: Mechelle Boyer D.O. ? Ordering Physician: Mechelle Boyer D.O. ?? Date of Service: 04/29/25 ?? Procedure(s): ECG 12 lead ?? Accession Number(s): [id number] ? cc: ?[facility] ? Test Date: ?2025-04-29 ?? Pat Name: ? ANN ROOT ?Department: ? Room: ? - ?? Gender: ? Male ? Payroll Analyst: ? : ?1945 ? Requested By: MASON JOHNSON ?? Order Number: [id number] ?Reading MD: ?? MECHELLE ??Sarah SCHMIDT ? Measurements ?? Intervals ?[place] ? Rate: ? 84 ? P: ? FL: ?QRS: ?-10 ?? QRSD: ? 114 ?T: [...] Dictated By: ?MECHELLE SCHMIDT ? Signed By: ?04/29/25 1920 ?04/29/25 1920 ? DD/ 1239 ? TD/TT: ? Hot Wound Spring Production Supervisor: Procedure Note Radiology, Radiologist, MD - 04/29/[address] [address] Electrocardiograph Report Signed Patient: ANN ROOT [facility]#: [id number] : 4Acct:[id number] Age/Sex: 79 / MADM Date: 04/29/25 Loc: LAB Attending Dr: Mechelle Boyer D.O. Ordering Physician: Mechelle Boyer D.O. Date of Service: 04/29/25 Procedure(s): ECG 12 lead Accession Number(s): [id number] cc: [facility] Test Date: 2025-04-29 Pat Name: ANN ROOT Department: Room: - Gender: Male Payroll Analyst: : 1945 Requested By: MASON JOHNSON Order Number: [id number] Reading MD: MECHELLE SCHMIDT M.D. Measurements Intervals [place] Rate: 84 P: FL: QRS: -10 QRSD: 114 T: 54 QT: [...] MECHELLE SCHMIDT Signed By:04/29/25191904/29/251919 DD/ 1239 TD/TT: Hot Wound Spring Production Supervisor: Authorizing ProviderResult TypeResult StatusGeneric External Data Provider [...] Provider CLINISYNCFinal ResultPerforming OrganizationAddressCity/State/ZIP CodePhone Number BHUPENDRA [facility] * (ABNORMAL) MHPT DIFFERENTIAL (04/29/2025 12:17 PM EDT)ComponentValueRef Range Test MethodAnalysis TimePerformed AtPathologist SignatureSEGMENTED NEUTROPHILS % YTSATN26.0(H)43.0 - 75.0TBHBAND NEUTROPHILS %3.00 - 5 %TBHLYMPHOCYTES [...] Provider CLINISYNCFinal ResultPerforming OrganizationAddressCity/State/ZIP CodePhone Number BHUPENDRA [facility] * (ABNORMAL) CCF CMP (CMP) (FOR REMOTE [facility] USE) (04/29/2025 12:17 PM EDT) ComponentValueRef RangeTest MethodAnalysis TimePerformed AtPathologist EemcmqiczADHCUQ788989 - 145 mmol/LTBHPOTASSIUM4.13.5 - 5.1 mmol/LTBHCHLORIDE 34667 - 107 mmol/LTBHCARBON VFUKERP14.221.0 - 32.0 mmol/LTBHANION GAP13.9TBH VSOTGGW450(H)74 - 106 mg/dLTBHBLOOD UREA OZFILUCK26.07.0 - 18.0 mg/dLTBH CREATININE1.180.70 - 1.30 mg/dLTBHTBH EGFR-AF EQUATORIAL GUINEAN>60>=60 mL/min/1.73m 2 TBHTBH EGFR-NON AF KSDANUES75(L)>=60 mL/min/1.73m 2TBHBUN CREATININE RATIO13.6 TBHCALCIUM9.48.5 - 10.1 mg/dLTBHBILIRUBIN TOTAL0.60.2 - 1.0 mg/dLTBHASPARTATE AMINO WZAVAGAZUDR6214 - 37 U/LTBHALANINE QJHCQLCHCAWPXZLS4428 - 63 U/LTBH ALKALINE AHOGAFTPECD32347 - 116 U/LTBHTOTAL PROTEIN7.76.4 - 8.2 g/dLTBHALBUMIN LEVEL3.83.4 - 5.0 g/dLTBHGLOBULIN3.9g/dLTBHALBUMIN GLOBULIN RATIO1.0TBH Specimen (Source)Anatomical Location / LateralityCollection Method / Volume Collection TimeReceived Time04/29/2025 12:17 PM EDT1 12:22 PM EDT Narrative CLINISYNC - 04/29/2025 12:55 PM EDT Authorizing ProviderResult TypeResult StatusGeneric External Data Provider CLINISYNCFinal ResultPerforming OrganizationAddressCity/State/ZIP CodePhone Number [facility] * CCF APTT (04/29/2025 12:17 PM EDT)ComponentValueRef RangeTest MethodAnalysis TimePerformed AtPathologist SignaturePARTIAL THROMBOPLASTIN TIME29.822.3 - 36.2 secTBHSpecimen (Source)Anatomical Location / LateralityCollection Method / VolumeCollection TimeReceived Time04/29/2025 12:17 PM EDT1 12:22 PM EDT Narrative CLINISYNC - 04/29/2025 12:56 PM EDT Authorizing ProviderResult TypeResult StatusGeneric External Data Provider CLINISYNCFinal ResultPerforming OrganizationAddressCity/State/ZIP CodePhone Number [facility] * ALL CBC WITH AUTO DIFF (04/29/2025 12:17 PM EDT)ComponentValueRef RangeTest MethodAnalysis TimePerformed AtPathologist SignatureTBH WBC6.24.0 - 11.0 10 3/uLTBHTBH RBC4.764.70 - 6.10 10 6/uLTBHTBH HGB14.114.0 - 18.0 g/dLTBHTBH HCT 42.542.0 - 54.0 %TBHTBH MCV89.380.0 - 94.0 fLTBHTBH MCH29.625.9 - 34.0 pgTBH TBH MCHC33.229.9 - 35.2 g/dLTBHTBH RDW14.311.0 - 15.0 %TBHTBH XRV014051 - 450 10 3/uLTBHTBH MPV9.89.5 - 13.5 fLTBHSpecimen (Source)Anatomical Location / LateralityCollection Method / VolumeCollection TimeReceived Time04/29/2025 12:17 PM EDT1 12:22 PM EDT Narrative CLINISYNC - 04/29/2025 1:19 PM EDT Authorizing ProviderResult TypeResult StatusGeneric External Data Provider CLINISYNCFinal ResultPerforming OrganizationAddressCity/State/ZIP CodePhone Number [facility] * URINE CULTURE - [facility] (04/29/2025 12:06 PM EDT)ComponentValueRef RangeTest MethodAnalysis TimePerformed AtPathologist SignatureURINE CULTURE - FR ??Urine Culture - FR No Growth 2 Days TBHURINE CULTURE - FRTBHURINE CULTURE - FRTesting performed at [facility]TB[facility] - [id number] [place] [address] TBHSpecimen (Source)Anatomical Location / LateralityCollection Method / Volume Collection TimeReceived Time04/29/2025 12:06 PM EDT1 12:52 PM EDT Narrative CLINISYNC - 05/02/2025 5:24 PM EDT Authorizing ProviderResult TypeResult StatusGeneric External Data ProviderLAB BLOOD ORDERABLESFinal ResultPerforming OrganizationAddressCity/State/ZIP Code Phone Number [facility] * (ABNORMAL) TBH UA (CLEAN/CATCH) MICROSCOPIC IF [...] NOTENo Growth 2 Days 05/02/2025 10:12 AM EDTFWayne Hospital CtrSpecimen (Source) Anatomical Location / LateralityCollection Method / VolumeCollection Time Received TimeUrineUrine specimen obtained by clean catch procedure / Unknown 04/29/2025 12:06 PM EDT1 12:40 PM EDTComment:Clean-Voided Midstream Narrative Authorizing ProviderResult TypeResult StatusJr. Mechelle ZIEGLER MICROBIOLOGY - GENERAL ORDERABLESFinal ResultPerforming OrganizationAddress City/State/ZIP CodePhone Number [facility] [address] [place] [address], [facility] [address] [place] [address] * XR hip left 2 or 3 [...] Ref RangeTest MethodAnalysis TimePerformed AtPathologist SignatureCREATININE, RANDOM VMHIH7000 - 320 mg/dLQUESTALBUMIN, URINE0.8See Note: mg/dLQUESTComment: Reference [...] specimen obtained by clean catch procedure / Hkfitap0303/26/2025 11:19 AM EDT03/26/2025 11:20 AM EDT Narrative [facility] - 03/27/2025 12:54 PM EDT FASTING:YES FASTING: YES Resulting Agency Comment Performing Organization Information ?Site ID: QPT ?Name: [facility] ?Address: [address] [place] [address], [address] [place] [phone] ?Director: Maged Olson MD Authorizing ProviderResult TypeResult StatusDalaron Johnson MDLAB URINE ORDERABLESFinal ResultPerforming OrganizationAddressCity/State/ZIP CodePhone Number [facility] * Lipid panel (03/26/2025 11:19 AM EDT)ComponentValueRef RangeTest Method Analysis TimePerformed AtPathologist SignatureCHOLESTEROL, OFBYF358<200 mg/dL QUESTHDL PXKEKBAUUYF10> OR = 40 mg/uJTZHBOTIMUCOWVFXKLO29<150 mg/dLQUESTLDL ZPNRCORPHHK16gi/dL (calc)QUESTComment: Reference range: <100 Desirable range <100 mg/dL for primary prevention; <70 mg/dL for patients with CHD or diabetic patients with > or = 2 CHD risk factors. LDL-C is now calculated using the Monroe-Alverto calculation, which is a validated novel method providing better accuracy than the Friedewald equation in the estimation of LDL-C. Monroe SS et al. TITI. 2013;310(19): 6029-5311 (http://education.PlateJoy.Malwarebytes/faq/MEB080) CHOL/HDLC RATIO2.8<5.0 (calc)QUESTNON HDL NOEEUPKIVUM38<130 mg/dL (calc)[facility] Comment: For patients with diabetes plus 1 major ASCVD risk factor, treating to a non-HDL-C goal of <100 mg/dL (LDL-C of <70 mg/dL) is considered a therapeutic option. Specimen (Source)Anatomical Location / LateralityCollection Method / Volume Collection TimeReceived TimeBloodVenous blood specimen / Kjefnki4403/26/2025 11:19 AM EDT03/26/2025 11:20 AM EDT Narrative [facility] - 03/27/2025 12:54 PM EDT FASTING:YES FASTING: YES Resulting Agency Comment Performing Organization Information ?Site ID: QPT ?Name: [facility] ?Address: [address] [place] [address], [address] [place] [phone] ?Director: Maged Olson MD Authorizing ProviderResult TypeResult StatusDanidemi Johnson MDLAB BLOOD ORDERABLESFinal ResultPerforming OrganizationAddressCity/State/ZIP CodePhone Number [facility] * (ABNORMAL) Comprehensive metabolic panel (03/26/2025 11:19 AM EDT)Component ValueRef RangeTest MethodAnalysis TimePerformed AtPathologist SignatureGlucose 183(H)65 - 99 mg/dLQUESTComment: ? Fasting reference interval For someone without known diabetes, a glucose value >125 mg/dL indicates that they may have diabetes and this should be confirmed with a follow-up test. QZU087 - 25 mg/dLQUESTCreatinine1.28(H)0.70 - 1.22 mg/pMHNCYAKEUU16(L)> OR = 60 mL/min/1.48o6FXMWBNIQ/CREATININE KSGOF799 - 22 (calc)HXPFPJvwlty967117 - 146 mmol/LQUESTPotassium, Bld4.33.5 - 5.3 mmol/DXXGXMRexhpdur85313 - 110 mmol/LQUEST Carbon Kbwdrcf2785 - 32 mmol/LQUESTCalcium9.18.6 - 10.3 mg/dLQUESTPROTEIN, TOTAL 6.56.1 - 8.1 g/dLQUESTALBUMIN4.03.6 - 5.1 g/dLQUESTGLOBULIN2.51.9 - 3.7 g/dL (calc)QUESTALBUMIN/GLOBULIN RATIO1.61.0 - 2.5 (calc)QUESTBILIRUBIN, TOTAL1.00.2 - 1.2 mg/dLQUESTALKALINE CZWQDEWAHRK6841 - 144 U/AWNPJEACO8563 - 35 U/LQUESTALT 49(H)9 - 46 U/LQUESTSpecimen (Source)Anatomical Location / LateralityCollection Method / VolumeCollection TimeReceived TimeBloodVenous blood specimen / Unknown 03/26/2025 11:19 AM EDT03/26/2025 11:20 AM EDT Narrative [facility] - 03/27/2025 12:54 PM EDT FASTING:YES FASTING: YES Resulting Agency Comment Performing Organization Information ?Site ID: QPT ?Name: [facility] ?Address: [address] [place] [address], [address] [place] [phone] ?Director: Maged Olson MD Authorizing ProviderResult TypeResult StatusDalaron Johnson MDLAB BLOOD ORDERABLESFinal ResultPerforming OrganizationAddressCity/State/ZIP CodePhone Number [facility] * MR hip left wo IV contrast (03/12/2025 3:44 PM EDT)Anatomical RegionLaterality ModalityLower Extremities, HipLeftMagnetic ResonanceSpecimen (Source) Anatomical Location / LateralityCollection Method / VolumeCollection Time Received Time03/12/2025 3:44 PM EDT Narrative 03/12/2025 3:46 PM EDT [facility] ?[address] ? [place] [address] ? Magnetic Resonance Report ? Signed ? Patient: MIGUELANN D ?MR#: [id number] ?? : 1945 ?Acct:[id number] ?? Age/Sex: 79 / M ?ADM Date: 03/12/25 ?? Loc: MRI ? Attending Dr: MASON JOHNSON ? Ordering Physician: MASON JOHNSON ?? Date of Service: 03/12/25 ?? Procedure(s): MR hip LT wo con ?? Accession Number(s): [id number] ? cc: MASON JOHNSON ? [facility] ? [address] ? [place] [address] ? Patient Name: ?? ANN ROOT ? MRN: [facility]:[id number] ? date: 1945 ?Sex: M ?? Assigned Patient Location: MRI ?? Current Patient Location: MRI ?? Accession/Order Number: [id number] ?? Exam Date: 03/12/2025 ??10:00 ?Report Date: [...] M.D. ??03/12/2025 3:44 PM ? Dictation Location: [place] [address] ? Electronically authenticated by: [id number] ??Y ?? Date: 03/12/2025 ??15:44 ? Dictated By: ?El Burnett M.D. ? Signed By: ?03/12/25 1546 ? DD/ 1544 ? TD/TT: ? Hot Wound Spring Production Supervisor: Procedure Note Radiology, Radiologist, MD - 03/12/2025 [place] [address] Magnetic Resonance Report Signed Patient: ANN ROOT DMR#: [id number] : 4Acct:[id number] Age/Sex: 79 / MADM Date: 03/12/25 Loc: MRI Attending Dr: MASON JOHNSON Ordering Physician: MASON JOHNSON Date of Service: 03/12/25 Procedure(s): MR hip LT wo con Accession Number(s): [id number] cc: MASON JOHNSON The [address] [address] Patient Name: ANN ROOT MRN: [facility]:[id number] date: 1945 Sex: M Assigned Patient Location: MRI Current Patient Location: MRI Accession/Order Number: [id number] Exam Date: 03/12/2025 10:00 Report Date: 03/12/2025 [...] Burnett M.D. 03/12/2025 3:44 PM Dictation Location: [place] [address] Electronically authenticated by: [id number] Y Date: 5:44 Dictated By: El Burnett M.D. Signed By:03/12/25 1546 DD/ 1544 TD/TT: Hot Wound Spring Production Supervisor: Authorizing ProviderResult TypeResult StatusMason Johnson MDIMG MRI PROCEDURES Final Result * POCT Glycated hemoglobin, total (12/09/2024 11:30 AM EDT)ComponentValueRef RangeTest MethodAnalysis TimePerformed AtPathologist SignatureHemoglobin A1C 7.1Specimen (Source)Anatomical Location / LateralityCollection Method / Volume Collection TimeReceived QgsmQwtuq61/04/2025 11:30 AM EDT Narrative Authorizing ProviderResult TypeResult StatusMason Johnson MDPOINT OF CARE TEST ENTER/EDIT ORDERABLESFinal Result from Last 3 Months or Most Recently Relevant to Health Maintenance Insurance Care Teams Team MemberRelationshipSpecialtyStart DateEnd Date Mason Johnson MD [address] [facility] [address] [place] [address] PCP - GeneralInternal Lbefysff15/11/24 Mason Johnson MD [address] [facility] [address] [place] [address] PCP - Medical [facility]07/08/2511
--- OUTSIDE RECORDS SUMMARY | 2025-05-21 08:34 | XMS_ITS | Encounter Summary ---
Author Organization [facility] Address [address] [place] [address] Care Team Providers Care Bilingual Teacher Aide Name Role Phone Mason Johnson MD Primary Care Provider [phone] Mason Johnson MD Unavailable [phone] Encounter Details DateTypeDepartmentCare Team (Latest Contact Info)Ionmdezwbhc75/06/2025Abstract [facility] [place] [facility] [address] [facility] [address] [place] [address] Mason Johnson MD [address] [facility] [address] [place], [place] [address] Social History Tobacco UseTypesPacks/DayYears UsedDateSmoking Tobacco: NeverPassive [...] times a week06/10/2023How often do you attend anabaptism or advent services?Never06/10/2023o you belong to any clubs or organizations such as anabaptism groups, unions, fraternal or athletic groups, or school groups?No 06/10/2023How often do you attend meetings of the clubs or organizations you belong to?Never06/10/2023re you , , , , never , or living with a partner?Trbgucv0706/10/2023UDIT-CAnswerDate RecordedQ1: How often do you have a drink containing alcohol?4 or more times a week 07/29/2023verage Number of DrinksNot on file07/29/2023Frequency of Binge DrinkingNot on file07/29/2023Overall Financial Resource Strain (CARDIA)Answer Date RecordedHow hard is it for you to pay for the very basics like food, housing, medical care, and heating?Very hard06/10/2023HQ-2AnswerDate Recorded Patient Health Questionnaire-2 Pdldn900Fin[facility] [place] of Occupational Health - Occupational Stress QuestionnaireAnswerDate [...] RecordedSex Assigned at BirthNot on file Legal JvbSelw3309/19/2022 7:58 PM EDTGender IdentityNot on fileSexual Orientation Not on filedocumented as of this encounter Plan of Treatment DateTypeDepartmentCare Team (Latest Contact Info)Vugfyfdljsh69/17/2025 11:45 AM ESTOffice Visit [facility] [place] [facility] [address] [facility] [address] [place] [address] Mason Johnson MD [address] [facility] [address] [place] [address] 05/25/2025 9:20 AM ESTOffice Visit [facility] [address] [place] [address] Mayte Stevens, PATIENT INSURANCE CLERK-EDGE TRIMMER MECHANIC [address] [place] [address] 07/20/2025 8:30 AM ESTOffice Visit [facility] [address] [facility] [address] [place] [address] Leela Schwartz MD [address] [facility] [address] [place], [place] [phone] documented as of this encounter Visit Diagnoses Not on filedocumented in this encounter Additional Health Concerns AssessmentNoted TimePHQ-9 Depression Total Score: 5:03 PM EST documented as of this encounter Care Teams Team MemberRelationshipSpecialtyStart DateEnd Date Mason Johnson MD [address] [place], [place] [address] PCP - GeneralInternal Wmkzeepj24/11/24 Mason Johnson MD [address] [place] [address] PCP - Medical [place]07/08/2511documented as of this encounter
--- OUTSIDE RECORDS SUMMARY | 2025-05-21 08:34 | XMS_ITS | Encounter Summary ---
Author Organization [facility] Address [address] [place] [address] Care Team Providers Care Resistance Welder Name Role Phone Mason Johnson MD Primary Care Provider [phone] Mason Johnson MD Unavailable [phone] Encounter Details DateTypeDepartmentCare Team (Latest Contact Info)Koxgwpjgbsj72/03/2025Telephone [facility] [place] [facility] [address] [place] [address] Elodia Parker LPN [address] [place] [address] Social History Tobacco UseTypesPacks/DayYears UsedDateSmoking Tobacco: NeverPassive [...] times a week06/10/2023How often do you attend worship or sikh services?Never06/10/2023o you belong to any clubs or organizations such as worship groups, unions, fraGo World! or athletic groups, or school groups?No 06/10/2023How often do you attend meetings of the clubs or organizations you belong to?Never06/10/2023re you , , , , never , or living with a partner?Qccbhvc1006/10/2023UDIT-CAnswerDate RecordedQ1: How often do you have a drink containing alcohol?4 or more times a week 07/29/2023verage Number of DrinksNot on file07/29/2023Frequency of Binge DrinkingNot on file07/29/2023Overall Financial Resource Strain (CARDIA)Answer Date RecordedHow hard is it for you to pay for the very basics like food, housing, medical care, and heating?Very hard06/10/2023HQ-2AnswerDate Recorded Patient Health Questionnaire-2 Fhwzq697Finprimary [facility] [place] of Occupational Health - Occupational Stress QuestionnaireAnswerDate [...] RecordedSex Assigned at BirthNot on file Legal EifWwzl3909/19/2022 7:58 PM EDTGender IdentityNot on fileSexual Orientation [...] Plan of Treatment DateTypeDepartmentCare Team (Latest Contact Info)Kzpmgbqzocs11/17/2025 11:45 AM ESTOffice Visit [facility] [place] [facility] [address] [place] [address] Mason Johnson MD [address] [place] [address] 05/25/2025 9:20 AM ESTOffice Visit [facility] [place] [facility] [address] [place] [address] Hilda Mayte A, ROOM SERVICE WAITER-WEBMASTER [address] [place] [address] 07/20/2025 8:30 AM ESTOffice Visit [facility] [place] [facility] [address] [place] [address] Leela Schwartz MD [address] [place] [address] documented as of this encounter Visit Diagnoses Not on filedocumented in this encounter Additional Health Concerns AssessmentNoted TimePHQ-9 Depression Total Score: 5:03 PM EST documented as of this encounter Care Teams Team MemberRelationshipSpecialtyStart DateEnd Date Mason Johnson MD [address] [place] [address] PCP - GeneralInternal Ligikkhx13/11/24 Mason Johnson MD [address] [place] [address] PCP - Medical [place]07/08/2511documented as of this encounter
--- OUTSIDE RECORDS SUMMARY | 2025-05-21 08:34 | XMS_ITS | Encounter Summary ---
Author Organization [facility] Address [address] [place] [address] Care Team Providers Care Computational Mathematician Name Role Phone Mason Johnson MD Primary Care Provider [phone] Mason Johnson MD Unavailable [phone] Encounter Details DateTypeDepartmentCare Team (Latest Contact Info)Ltszolcjfuk48/06/2025Telephone [facility] [place] [facility] [address] [place] [address] Mason Johnson MD [address] [facility] [address] [place], [place] [address] Social History Tobacco UseTypesPacks/DayYears UsedDateSmoking Tobacco: NeverPassive [...] week06/10/2023How often do you attend lutheran or bahai services?Never06/10/2023o you belong to any clubs or organizations such as lutheran groups, unions, fraternal or athletic groups, or school groups?No 06/10/2023How often do you attend meetings of the clubs or organizations you belong to?Never06/10/2023re you , , , , never , or living with a partner?Vihyodp3706/10/2023UDIT-CAnswerDate RecordedQ1: How often do you have a drink containing alcohol?4 or more times a week 07/29/2023verage Number of DrinksNot on file07/29/2023Frequency of Binge DrinkingNot on file07/29/2023Overall Financial Resource Strain (CARDIA)Answer Date RecordedHow hard is it for you to pay for the very basics like food, housing, medical care, and heating?Very hard06/10/2023HQ-2AnswerDate Recorded Patient Health Questionnaire-2 Lxwuy948Finac[facility]ia healthcare [place] of Occupational Health - Occupational Stress QuestionnaireAnswerDate [...] RecordedSex Assigned at BirthNot on file Legal FreEheg8209/19/2022 7:58 PM EDTGender IdentityNot on fileSexual Orientation [...] Plan of Treatment DateTypeDepartmentCare Team (Latest Contact Info)Tfewqmhicmi67/17/2025 11:45 AM ESTOffice Visit [facility] [place] [facility] [address] [place] [address] Mason Johnson MD [address] [place] [address] 05/25/2025 9:20 AM ESTOffice Visit [facility] [place] [facility] [address] [place] [address] Hilda Mayte A, RETAIL SALES ASSOCIATE BILINGUAL-WELDER ASSEMBLER [address] [place] [address] 07/20/2025 8:30 AM ESTOffice Visit [facility] [place] [facility] [address] [place] [address] Leela Schwartz MD [address] [place] [address] documented as of this encounter Visit Diagnoses Diagnosis History of heart artery stent documented in this encounter Additional Health Concerns AssessmentNoted TimePHQ-9 Depression Total Score: 5:03 PM EST documented as of this encounter Care Teams Team MemberRelationshipSpecialtyStart DateEnd Date Mason Johnson MD [address] [place] [address] PCP - GeneralInternal Qygiovld49/11/24 Mason Johnson MD [address] [place] [address] PCP - Medical [place]07/08/2511documented as of this encounter
--- OUTSIDE RECORDS SUMMARY | 2025-05-21 08:34 | XMS_ITS | Clinical Summary ---
Author Organization [facility] Address [address] [place] [address] Care Team Providers Care Vice President Of Talent Management Name Role Phone Mason Johnson MD Primary Care Provider [phone] Allergies Active AllergyReactionsCriticalityNoted PyxeUdfnhotiOuwxvnz-Ltj-Glc Reductase CemryrnzuyUesty26/04/2023 Medications MedicationSigDispense QuantityRefillsLast FilledStart DateEnd DateStatus Eliquis [...] Active Problems ProblemNoted DateDiagnosed DateBMI 29.0-29.9,adult05/11/2025rteriosclerotic cardiovascular bhzfhwg2505/11/2025Disorder of zvefoudx11/04/2025History of colonic yvrudh6305/11/2025History of malignant neoplasm of colon05/11/2025 Jvlygnbkifhwfgsojxbz14/04/2025Raynaud's /04/2025Vitamin D deficiency 05/11/2025trial ksgmpzr9405/11/2025History of heart artery stent04/30/2025 Pseudogout involving multiple pkxbfo7703/26/2025Primary osteoarthritis of left hip 10/26/2024Spondylosis of cervical region without myelopathy or radiculopathy 10/26/2024losed dislocation of right acromioclavicular joint10/16/2024Throat yrzpsy1212/04/2023Neck muscle spasm11/20/2023Encounter for Medicare annual wellness exam06/10/2023isorder of carbohydrate lzolusndal59/07/2023Facial kygibi0701/21/2023ontrolled type 2 diabetes mellitus with stage 2 chronic kidney disease, without long-term current use of hsnhcst9101/15/2023iastasis recti 01/15/2023ERD (gastroesophageal reflux disease)01/15/2023History of [place] (myocardial infarction)01/15/2023HTN (hypertension)01/15/2023NASH (nonalcoholic steatohepatitis)01/15/2023Metastatic cancer to cervical lymph nodes12/15/2022 Stage 2 chronic kidney isnpphz8411/01/2022hemotherapy-induced neutropenia 10/19/2022Malignant neoplasm of base of mqealc1308/21/2022 Overview (05/11/2025): Diagnosed 07/31/22. Diffusely p16 positive poorly differentiated SCCA. CT shows >5 cm tongue basemass and multiple morphologically abnormal, but normal sized LN in LT zone 2. Radiation completed 10/22/22. Monthly checks began 11/2022. Colon otejhc2311/19/2012 Encounters DateTypeDepartmentCare SeqzEigubtebvfv96/12/2025Orders Only [facility] [address] [place] [address] Chanelle Thomas MD 05/13/2025Orders Only [facility] [address] [place] [address] Sangita Pack MA Atrial flutter, unspecified type (CMS/HCC) (Primary Dx)05/13/2025Telephone [facility] [address] [place] [address] Michelle Magaña MA Error (VOID this visit)05/12/20254776Ntvvhr58/04/2025 2:15 PM ESTOffice Visit [facility] [address] [place] [address] Franki Zimmerman MD Pre-op evaluation (Primary Dx); Coronary artery disease, unspecified vessel or lesion type, unspecified whether angina present, unspecified whether iqugmiut or transplanted heart; Atypical atrial flutter (CMS/HCC)05/11/2025Orders Only [facility] [address] [facility] [place] [address] Sangita Pack MA Atrial flutter, unspecified type (CMS/HCC) (Primary Dx)from Last 3 Months Family History RelationNameStatusCommentsFatherUnknownMotherUnknown Social History Tobacco UseTypesPacks/DayYears UsedDateSmoking Tobacco: NeverSmokeless Tobacco: Never Tobacco Cessation:Counseling Given: Not Answered Alcohol UseStandard Drinks/WeekCommentsYes0 (1 standard drink = 0.6 oz pure alcohol)2 bottles of beer per daySex and Gender InformationValueDate RecordedSex Assigned at IaukbCfrt80/04/2025 2:10 PM ESTLegal GalUosq3301/03/2022 10:06 PM EDT Gender XqugxxuyZyuj48/04/2025 2:10 PM ESTSexual OrientationHeterosexual or Oeerinwf68/04/2025 2:10 PM EST Last Filed Vital Signs Vital SignReadingTime TakenCommentsBlood Eulrfhjq536/7905/11/2025 2:45 PM EST Bdtnt544205/11/2025 2:45 PM ESTTemperature--Respiratory Rate--Oxygen Hnpilihvgt84% 05/11/2025 2:45 PM ESTInhaled Oxygen Concentration--Lwxmok89 kg (194 lb) 05/11/2025 2:45 PM WBAWkgaox890.2 cm (5' 7 )05/11/2025 2:45 PM ESTBody Mass Index30.38107/11/2024 2:45 PM EST Plan of Treatment DateTypeDepartmentCare Team (Latest Contact Info)Mjubgpxmpgw47/03/2025 11:30 AM ESTHospital Encounter [facility] [place] [facility] [address] [place] [address] Franki Zimmerman MD [address] [address] Atrial flutter, unspecified type (CMS/HCC)06/09/2025 11:30 AM EST - 06/09/2025 1:30 PM ESTSurgery [facility] [place] [facility] [address] [place] [address] Franki Zimmerman MD [address] [place] [address] Ablation atrial flutter [65815 (CPT??)]Health MaintenanceDue DateLast Done CommentsDiabetes: Hemoglobin A1C1945Medicare Annual Wellness (AWV) 1945Meningococcal Vaccine (1 - Risk 2-dose series)10/31/1945Diabetes: Retinopathy Fxxhyuttt22/26/1954Meningococcal B Vaccine (1 of 4 - Increased Risk) 10/31/1953epression Kpafzbulo12/26/1956Pneumococcal Vaccine: 50+ Years (1 of 2 - PCV)10/31/1962Zoster Vaccines (1 of 2)10/31/1962Adult Rndftjj2310/31/1965Fall Risk Nqazhqnxg05/26/2009COVID-19 Vaccine (3 - Moderna risk series)10/04/2020 09/06/2020, 08/09/2020Influenza Vaccine (#1)501/02/2025, 06/20/2023, 05/03/2022, Additional history existsDiabetes: Urine Protein Lvucahjle33/19/2026 03/26/2025HIB VaccinesAged OutNo longer eligible based on patient's age to complete this topicHPV VaccinesAged OutNo longer eligible based on patient's age to complete this topicIPV VaccinesAged OutNo longer eligible based on patient's age to complete this topicRotavirus VaccinesAged OutNo longer eligible based on patient's age to complete this topic Procedures Procedure NamePriorityDate/TimeAssociated DiagnosisCommentsCOMPLETE TRANSTHORACIC ECHO (TTE) W/WO IMAGING AGENT, STRAIN, 3D, BUBBLE STUDYRoutine 05/19/2025 4:34 PM ESTfrom Last 3 Months Results * Complete Echo (TTE) w/wo Imaging Agent, Strain, 3D, Bubble Study (05/19/2025 4:34 PM EST)Anatomical RegionLateralityModalityUltrasound Narrative Authorizing ProviderResult TypeResult StatusHistorical Provider MDCV ECHO PROCEDURESFinal Result from Last 3 Months Insurance Care Teams Team MemberRelationshipSpecialtyStart DateEnd Date Mason Johnson MD [address] [facility] [address] [place] [address] PCP - GeneralInternal Ygmecycq91/22/25
--- OUTSIDE RECORDS SUMMARY | 2025-05-21 08:34 | XMS_ITS ---
Author Organization [facility] Address [address] [place] [address] Care Team Providers Care Drawbridge Operator Name Role Phone Mason Johnson MD Primary Care Provider Mason Johnson MD Unavailable [phone] Emergency Department Transitional Care Management (TCM) Status:Declined (Declined) Start date:05/07/2025 Enrollment date:05/10/2025 Enrollment reason:Identified using hospital discharge data End date:05/10/2025 Decline reason:Patient declined Overview Discharged from [facility] on 05/07. Please contact within 2 days of discharge for ERTOC and schedule a follow-up appointment if needed. <May 10, 2025, 14:49 - Vibha Rojo RN> er kiara completed. Declined CCM services Continued Care and Services Coordination
--- OUTSIDE RECORDS SUMMARY | 2025-05-21 08:34 | XMS_ITS | Encounter Summary ---
Author Organization [facility] Address [address] [place] [address] Care Team Providers Care Global Category Manager Name Role Phone Mason Johnson MD Primary Care Provider [phone] Mason Johnson MD Unavailable [phone] Encounter Details DateTypeDepartmentCare Team (Latest Contact Info)Lwmwbxvusgh58/03/2025Patient Outreach [facility] [address] [place] [address] Vibha Rojo, RN [address] [facility] [address] [place] [address] Social History Tobacco UseTypesPacks/DayYears UsedDateSmoking Tobacco: NeverPassive [...] times a week06/10/2023How often do you attend catholic or mandaen services?Never06/10/2023o you belong to any clubs or organizations such as catholic groups, unions, fraternal or athletic groups, or school groups?No 06/10/2023How often do you attend meetings of the clubs or organizations you belong to?Never06/10/2023re you , , , , never , or living with a partner?Xjtlcgs7206/10/2023UDIT-CAnswerDate RecordedQ1: How often do you have a drink containing alcohol?4 or more times a week 07/29/2023verage Number of DrinksNot on file07/29/2023Frequency of Binge DrinkingNot on file07/29/2023Overall Financial Resource Strain (CARDIA)Answer Date RecordedHow hard is it for you to pay for the very basics like food, housing, medical care, and heating?Very hard06/10/2023HQ-2AnswerDate Recorded Patient Health Questionnaire-2 Fhfyr546[facility] [place] of Occupational Health - Occupational Stress QuestionnaireAnswerDate [...] RecordedSex Assigned at BirthNot on file Legal EocCwdu3509/19/2022 7:58 PM EDTGender IdentityNot on fileSexual Orientation Not on filedocumented as of this encounter Progress Notes * Vibha Rojo RN - 05/10/2025 2:28 PM EST Images from the original note were not included. Flowsheet Row Patient Outreach from 05/10/2025 in [facility] with Vibha Rojo RN Hospital Information ED, Hospital or Fci Facility Discharge? ED Patient has been contacted within 2 days of being seen in the ED Yes Diagnosis Atrial Flutter Discharge Date 05/07/25 Discharged To: Home Setting Discharge Hospital [facility] Engagement Call Start Time 1430 Admission [...] upcoming specialty appointments? Yes [Has appointment with Drilling Machine Runner] Nursing Interventions Advised patient to keep appointment [...] Plan of Treatment DateTypeDepartmentCare Team (Latest Contact Info)Xgpsasnitcx84/17/2025 11:45 AM ESTOffice Visit [facility] [place] [facility] [address] [place] [phone] Mason Johnson MD [address] [place] [address] 05/25/2025 9:20 AM ESTOffice Visit [facility] [place] [facility] [address] [place] [address] Mayte Stevens, MARKET GARDEN WORKER-DENTAL THERAPIST [address] [place] [address] 07/20/2025 8:30 AM ESTOffice Visit [facility] [place] [facility] [address] [place] [address] Leela Schwartz MD [address] [place], [place] [address] documented as of this encounter Visit Diagnoses Diagnosis Atrial flutter, unspecified type (HCC)- Primary History of [place] (myocardial infarction) Old myocardial infarction Metastatic cancer to cervical lymph nodes (HCC) OJEDA (nonalcoholic steatohepatitis) Other chronic nonalcoholic liver disease Primary hypertension Unspecified essential hypertension documented in this encounter Additional Health Concerns AssessmentNoted TimePHQ-9 Depression Total Score: 5:03 PM EST documented as of this encounter Care Teams Team MemberRelationshipSpecialtyStart DateEnd Date Mason Johnson MD [address] [place] [address] PCP - GeneralInternal Kyfbhjme16/11/24 Mason Johnson MD [address] [facility] [address] [place] [address] PCP - Medical [place]07/08/2511documented as of this encounter
--- OUTSIDE RECORDS SUMMARY | 2025-05-21 08:34 | XMS_ITS | Patient Health Record ---
Author Organization [facility] Address [address] [place] [address] Care Team Providers Care General Manager Farm Name Role Phone SHAIKH ASHBY Primary Care Provider Unavailabl e Reason For Referral No Information Problems Problem Type SNOMED Code ICD Code Onset Dates Problem Status W/U Status Risk Notes Problem Closed traumatic dis location acromioclavicular joint (166083959) Separation of right acromioclavicular joint, initial encounter (S43.101A) ActiveconfirmedProblemClosed traumatic dislocation acromioclavicular joint (137904073)Closed dislocation of right acromioclavicular joint, initial encounter (S43.101A)Activeconfirmed Plan Of Treatment No Information Insurance Providers Payer Name Payer Address Payer Phone Subscriber Number Group Number Insured Name Patient Relationship to Insured Coverage Start Date Coverage End Date [employer] [address] [address] [place] [address] [id number] Sj RIVERA - patient is the insuredAet Life Medicare SupplementPO [address] [address] [place] [id number], VERNONSelf - patient is the insured Medical (General) History Medical History History ICD Code Cancer Heart AttackDiabetesHigh Blood Pressure
--- OUTSIDE RECORDS SUMMARY | 2025-05-21 08:35 | XMS_ITS | Encounter Summary ---
Author Organization [facility] Address [address] [place] [address] Care Team Providers Care Hollow Tile Partition Erector Name Role Phone Mason Johnson MD Primary Care Provider [phone] Maosn Johnson MD Unavailable [phone] Encounter Details DateTypeDepartmentCare Team (Latest Contact Info)Beefqtucygd19/12/2025Clinisync Result Encounter [facility] Unsolicited Provider, [...] week06/10/2023How often do you attend confucianism or tenriism services?Never06/10/2023o you belong to any clubs or organizations such as confucianism groups, unions, fraternal or athletic groups, or school groups?No 06/10/2023How often do you attend meetings of the clubs or organizations you belong to?Never06/10/2023re you , , , , never , or living with a partner?Larffib9306/10/2023UDIT-CAnswerDate RecordedQ1: How often do you have a drink containing alcohol?4 or more times a week 07/29/2023verage Number of DrinksNot on file07/29/2023Frequency of Binge DrinkingNot on file07/29/2023Overall Financial Resource Strain (CARDIA)Answer Date RecordedHow hard is it for you to pay for the very basics like food, housing, medical care, and heating?Very hard06/10/2023HQ-2AnswerDate Recorded Patient Health Questionnaire-2 Nlhgd856[facility] [place] of Occupational Health - Occupational Stress QuestionnaireAnswerDate [...] RecordedSex Assigned at BirthNot on file Legal UmwLkpg7609/19/2022 7:58 PM EDTGender IdentityNot on fileSexual Orientation Not on filedocumented as of this encounter Plan of Treatment DateTypeDepartmentCare Team (Latest Contact Info)Vhzokehosvq91/17/2025 11:45 AM ESTOffice Visit [facility] [place] [facility] [address] [place] [address] Mason Johnson MD [address] [place] [address] 05/25/2025 9:20 AM ESTOffice Visit [facility] [place] [facility] [address] [place] [address] Mayte Stevens, ZMT OPERATOR-APPLE CHECKER [address] [place] [address] 07/20/2025 8:30 AM ESTOffice Visit [facility] [place] [facility] [address] [place] [address] Leela Schwartz MD [address] [place] [address] documented as of this encounter Procedures Procedure NamePriorityDate/TimeAssociated DiagnosisCommentsCA ECHO DOPPLER ANMIAKLW22/12/2025 4:11 PM EST documented in this encounter Results * CA ECHO DOPPLER COMPLETE (05/19/2025 4:11 PM EST)Anatomical RegionLaterality ModalityOtherSpecimen (Source)Anatomical Location / LateralityCollection Method / VolumeCollection TimeReceived Time05/19/2025 4:11 PM EST Narrative 05/19/2025 4:12 PM EST [facility] ?[address] ? [place] [address] ? Cardiology Report ? Signed ? Patient: ROOT,ANN D ?MR#: [id number] ?? : 1945 ?Acct:[id number] ?? Age/Sex: 79 / M ?ADM Date: 05/19/25 ?? Loc: CARD ? Attending Dr: Franki Zimmerman M.D. ? Ordering Physician: Franki Zimmerman M.D. ?? Date of Service: 05/19/25 ?? Procedure(s): CA echo doppler complete ?? Accession Number(s): [id number] ? cc: MASON JOHNSON ; Franki Zimmerman M.D. ? Patient Name: ? ANN ROOT ? MR#: [id number] ? : 1945 ? Exam Date: 05/19/2025 [...] ? 3.35 cm2, 3.35 cm2 ?? Deceleration [place]: ? 1.21 m/s2 ?? Pressure Half-Time: ? [...] By: ?Guanaco Gramajo M.D. ? Signed By: ?05/19/ 1612 ? DD/DT: 05/19/ 1611 ? TD/TT: ? Aerial Applicator Pilot: Procedure Note Radiology, Radiologist, MD - 05/19/2025 [facility] [place] [id number] Cardiology Report Signed Patient: ANN ROOT DMR#: [id number] : 1945cct:[id number] Age/Sex: 79 / MADM Date: 05/19/25 Loc: CARD Attending Dr: Franki Zimmerman M.D. Ordering Physician: Franki Zimmerman M.D. Date of Service: 05/19/25 Procedure(s): CA echo doppler complete Accession Number(s): [id number] cc: MASON JOHNSON ; Franki Zimmerman M.D. Patient Name: ANN ROOT MR#: [id number] : 1945 Exam Date: 05/19/2025 Ordering Doctor: [...] Area (VTI): 3.35 cm2, 3.35 cm2 Deceleration [place]: 1.21 m/s2 Pressure Half-Time: 725.67 ms Peak [...] 16:10 Dictated By: Guanaco Gramajo M.D. Signed By:05/19/251611 DD/ 10 TD/TT: Aerial Applicator Pilot: Authorizing ProviderResult TypeResult StatusGeneric External Data Provider CLINISYNC IMAGINGFinal Result documented in this encounter Visit Diagnoses Not on filedocumented in this encounter Additional Health Concerns AssessmentNoted TimePHQ-9 Depression Total Score: 5:03 PM EST documented as of this encounter Care Teams Team MemberRelationshipSpecialtyStart DateEnd Date Mason Johnson MD [address] [place] [address] PCP - GeneralInternal Xtcvzwue20/11/24 Mason Johnson MD [address] [place] [address] PCP - Medical [facility]07/08/2511documented as of this encounter
--- OUTSIDE RECORDS SUMMARY | 2025-05-21 08:35 | XMS_ITS | Encounter Summary ---
Author Organization [facility] Address [address] [place] [address] Care Team Providers Care Special Education Supervisor Name Role Phone Mason Johnson MD Primary Care Provider [phone] Mason Johnson MD Unavailable [phone] Encounter Details DateTypeDepartmentCare Team (Latest Contact Info)Nkcckusfzpo21/13/2025Abstract [facility] [place] [facility] [address] [facility] [address] [place] [address] Mason Johnson MD [address] [facility] [address] [place], [place] [phone] Social History Tobacco UseTypesPacks/DayYears UsedDateSmoking Tobacco: NeverPassive [...] times a week06/10/2023How often do you attend mu-ism or presybeterian services?Never06/10/2023o you belong to any clubs or organizations such as mu-ism groups, unions, fraternal or athletic groups, or school groups?No 06/10/2023How often do you attend meetings of the clubs or organizations you belong to?Never06/10/2023re you , , , , never , or living with a partner?Jwxzdts7006/10/2023UDIT-CAnswerDate RecordedQ1: How often do you have a drink containing alcohol?4 or more times a week 07/29/2023verage Number of DrinksNot on file07/29/2023Frequency of Binge DrinkingNot on file07/29/2023Overall Financial Resource Strain (CARDIA)Answer Date RecordedHow hard is it for you to pay for the very basics like food, housing, medical care, and heating?Very hard06/10/2023HQ-2AnswerDate Recorded Patient Health Questionnaire-2 Ensng666[facility] [place] of Occupational Health - Occupational Stress QuestionnaireAnswerDate [...] RecordedSex Assigned at BirthNot on file Legal HijAgdp1809/19/2022 7:58 PM EDTGender IdentityNot on fileSexual Orientation Not on filedocumented as of this encounter Plan of Treatment DateTypeDepartmentCare Team (Latest Contact Info)Mwgtomvveex91/17/2025 11:45 AM ESTOffice Visit [facility] [place] [facility] [address] [facility] [address] [place] [phone] Mason Johnson MD [address] [facility] [address] [place] [address] 05/25/2025 9:20 AM ESTOffice Visit [facility] [address] [place] [address] Mayte Stevens, MULE TENDER-JEWEL FLAT SURFACER [address] [place] [address] 07/20/2025 8:30 AM ESTOffice Visit [facility] [address] [facility] [address] [place] [phone] Leela Schwartz MD [address] [facility] [address] [place], [place] [phone] documented as of this encounter Visit Diagnoses Not on filedocumented in this encounter Additional Health Concerns AssessmentNoted TimePHQ-9 Depression Total Score: 5:03 PM EST documented as of this encounter Care Teams Team MemberRelationshipSpecialtyStart DateEnd Date Mason Johnson MD [address] [place], [place] [address] PCP - GeneralInternal Qclgkdro22/11/24 Mason Johnson MD [address] [place] [address] PCP - Medical [place]07/08/25[address]documented as of this encounter
--- OUTSIDE RECORDS SUMMARY | 2025-05-21 08:35 | XMS_ITS | Encounter Summary ---
Author Organization [facility] Address [address] [place] [address] Care Team Providers Care Manager International Name Role Phone Mason Johnson MD Primary Care Provider [phone] Reason for Visit * ReasonOnset DateCommentsError (VOID this visit)05/13/2025 Encounter Details DateTypeDepartmentCare Team (Latest Contact Info)Pujgmmzvnix92/06/2025Telephone [facility] [place] [facility] [address] [place] [address] Michelle Magaña MA Error (VOID this visit) Social History Tobacco UseTypesPacks/DayYears UsedDateSmoking Tobacco: NeverSmokeless Tobacco: NeverAlcohol UseStandard Drinks/WeekCommentsYes0 (1 standard drink = 0.6 oz pure alcohol)2 bottles of beer per daySex and Gender InformationValueDate RecordedSex Assigned at XnxuuRbhk34/04/2025 2:10 PM ESTLegal TweGvbd6101/03/2022 10:06 PM EDT Gender DvktlwagCjdy38/04/2025 2:10 PM ESTSexual OrientationHeterosexual or Nohvtgoy28/04/2025 2:10 PM ESTdocumented as of this encounter Plan of Treatment DateTypeDepartmentCare Team (Latest Contact Info)Onasdiovhkr46/03/2025 11:30 AM ESTHospital Encounter [facility] [address] [facility] [place] [address] Franki Zimmerman MD [address] [place] [address] Atrial flutter, unspecified type (CMS/HCC)06/09/2025 11:30 AM EST - 06/09/2025 1:30 PM ESTSurgery [facility] Vascular Lab [address] [place] [address] Franki Zimmerman MD [address] [facility] [place] [address] Ablation atrial flutter [15442 (CPT??)]documented as of this encounter Visit Diagnoses Not on filedocumented in this encounter Care Teams Team MemberRelationshipSpecialtyStart DateEnd Date Mason Johnson MD [address] [facility] [address] [place] [address] PCP - GeneralInternal Ntvehvhe45/22/25documented as of this encounter
--- OUTSIDE RECORDS SUMMARY | 2025-05-21 08:35 | XMS_ITS | Encounter Summary ---
Author Organization [facility] Address [address] [place] [address] Care Team Providers Care Political Science Faculty Member Name Role Phone Mason Johnson MD Primary Care Provider [phone] Encounter Details DateTypeDepartmentCare Team (Latest Contact Info)Ziutbtofpll65/12/2025Orders Only [facility] Heart at [facility] [address] [place] [address] Provider, MD Chanelle [facility] [place] [address] Social History Tobacco UseTypesPacks/DayYears UsedDateSmoking Tobacco: NeverSmokeless Tobacco: NeverAlcohol UseStandard Drinks/WeekCommentsYes0 (1 standard drink = 0.6 oz pure alcohol)2 bottles of beer per daySex and Gender InformationValueDate RecordedSex Assigned at KgjocLjmv08/04/2025 2:10 PM ESTLegal LweMmln8701/03/2022 10:06 PM EDT Gender PzgyomuoGjdq86/04/2025 2:10 PM ESTSexual OrientationHeterosexual or Jqihrupu59/04/2025 2:10 PM ESTdocumented as of this encounter Plan of Treatment DateTypeDepartmentCare Team (Latest Contact Info)Cmutsghkfcd41/03/2025 11:30 AM ESTHospital Encounter [facility] Vascular Lab [address] [place] [address] Franki Zimmerman MD [address] [place] [address] Atrial flutter, unspecified type (CMS/HCC)06/09/2025 11:30 AM EST - 06/09/2025 1:30 PM ESTSurgery [facility] V[facility] Lab [address] [place] [id number] Franki Zimmerman MD [address] [place] [phone] Ablation atrial flutter [41275 (CPT??)]documented as of this encounter Procedures Procedure NamePriorityDate/TimeAssociated DiagnosisCommentsCOMPLETE TRANSTHORACIC ECHO (TTE) W/WO IMAGING AGENT, STRAIN, 3D, BUBBLE STUDYRoutine 05/19/2025 4:34 PM ESTdocumented in this encounter Results * Complete Echo (TTE) w/wo Imaging Agent, Strain, 3D, Bubble Study (05/19/2025 4:34 PM EST)Anatomical RegionLateralityModalityUltrasound Narrative Authorizing ProviderResult TypeResult StatusHistorical Provider MDCV ECHO PROCEDURESFinal Result documented in this encounter Visit Diagnoses Not on filedocumented in this encounter Care Teams Team MemberRelationshipSpecialtyStart DateEnd Date Mason Johnson MD [address] [facility] [address] [place] [address] PCP - GeneralInternal Ynknczoa09/22/25documented as of this encounter
--- OUTSIDE RECORDS SUMMARY | 2025-05-21 08:35 | XMS_ITS | Encounter Summary ---
Author Organization [facility] Address [address] [place] [address] Care Team Providers Care Human Resources Receptionist Name Role Phone Mason Johnson MD Primary Care Provider [phone] Reason for Referral * Consultation (Routine) - Pending ReviewSpecialtyDiagnoses / ProceduresReferred By ContactReferred To ContactCardiology Diagnoses Atrial flutter, unspecified type (CMS/HCC) Procedures [facility] OFFICE/OUTPATIENT [facility] 60 MINUTES Franki Zimmerman MD [address] [place] [address] Phone: tel: fax: Referral IDStatusReasonStart DateExpiration DateVisits RequestedVisits [id number] Review Specialty Services Required Encounter Details DateTypeDepartmentCare Team (Latest Contact Info)Ctnetadtold66/06/2025Orders Only [facility] Heart at [facility] [address] [place] [address] Sangita Pack MA Atrial flutter, unspecified type (CMS/HCC) (Primary Dx) Social History Tobacco UseTypesPacks/DayYears UsedDateSmoking Tobacco: NeverSmokeless Tobacco: NeverAlcohol UseStandard Drinks/WeekCommentsYes0 (1 standard drink = 0.6 oz pure alcohol)2 bottles of beer per daySex and Gender InformationValueDate RecordedSex Assigned at YmhoxBqcz90/04/2025 2:10 PM ESTLegal ZdsXije8701/03/2022 10:06 PM EDT Gender ZfxpfcsySjyj08/04/2025 2:10 PM ESTSexual OrientationHeterosexual or Nixoirzg26/04/2025 2:10 PM ESTdocumented as of this encounter Plan of Treatment DateTypeDepartmentCare Team (Latest Contact Info)Wakzhjkxtch14/03/2025 11:30 AM ESTHospital Encounter [facility] Vascular Lab [address] [place] [address] Franki Zimmerman MD [address] [place] [address] Atrial flutter, unspecified type (CMS/HCC)06/09/2025 11:30 AM EST - 06/09/2025 1:30 PM ESTSurgery [facility] [address] [place] [address] Franki Zimmerman MD [address] [facility] [place] [address] Ablation atrial flutter [66889 (CPT??)]NameTypePriorityAssociated DiagnosesOrder ScheduleAmbulatory referral to Cardiac ElectrophysiologyOutpatient Referral Routine Atrial flutter, unspecified type (CMS/HCC) Expected: 05/13/2025 (Approximate), Expires: 11/10/2025documented as of this encounter Visit Diagnoses Diagnosis Atrial flutter, unspecified type (CMS/HCC)- Primary Atrial flutter, unspecified type (CMS/HCC) Atrial flutter, unspecified type (CMS/HCC) documented in this encounter Care Teams Team MemberRelationshipSpecialtyStart DateEnd Date Mason Johnson MD [address] [place] [address] PCP - GeneralInternal Qtrphira58/22/25documented as of this encounter
--- NOTE | 2025-05-21 09:14 | PC.NURSE ---
Nursing Note Cardiac Stress Test Reviewed: Medication, allergies and patient history reviewed. Stress Test: [x ] Patient tolerated stress test well. [ ] Patient unable to tolerate walking on treadmill. Switched to Lexiscan stress test. [x ] No chest pain noted per patient [ ] Chest pain that resolved prior to leaving stress lab. [ x] No dyspnea noted. [ ] Dyspnea that resolved prior to leaving stress lab. [x ] Patient left stress lab asymptomatic and hemodynamically stable. [ ] Patient taken to the Emergency Room due to non-resolving symptoms following stress test. [ ] Patient achieved target heart rate. [ ] Patient unable to achieve target heart rate. [ ] Aminophylline administered as reversal agent to Lexiscan (Regadenoson). [ ] Nitro administered. Nursing Comments:
[2025-05-21] MEDS: REGADENOSON 0.4 MG/5 ML SYRINGE IV (09:23)
--- NOTE | 2025-05-24 16:55 | PM.STRESS ---
Stress Test Stress Test Allergies Allergy/AdvReac Type Severity Reaction Status Date / Time No Known Drug Allergies Allergy Verified 05/07/25 10:03 Requesting physician: Franki Zimmerman Procedure: Lexiscan nuclear stress test General Information: Reason for Stress Test: [CAD] Cardiac History and Risk Factors: [History of CAD, hypertension] Resting 12 - Lead Electrocardiogram: Resting twelve-lead leads EKG showed atrial flutter with variable AV conduction, heart rate 60 bpm incomplete right bundle branch block. Resting blood pressure 145/87 mmHg Patient was injected with Lexiscan 0.4 mg IV and was monitored for few minutes. Peak heart rate 105 bpm which represents 75% of age. Maximum heart rate, and peak blood pressure 161/88 mmHg. The patient did not report any symptoms. EKGs throughout the test did not show any significant ST changes. The patient remained in atrial flutter, no arrhythmia noted Stress Test: Protocol: [Lexiscan] Exercise Capacity: [Not applicable] Blood Pressure Response: [Normal] Rhythm: [Baseline atrial flutter, no other arrhythmias] ST - Response: [No ST changes] Patient Response: [No symptoms] Interpretation: Negative Lexiscan EKG stress test for ischemia The nuclear myocardial perfusion stress images result is reported separately Keke Benson MD, FACC
== END 2025-05-21 08:32 | disposition home or self-care (01) ==
LOC: CARD 08:31
PROVIDERS: PCP Internal Medicine; Visit Provider Internal Medicine Cardiovascular Disease
DX: I25.10 Atherosclerotic heart disease of native coronary artery without angina pectoris (principal); Z95.5 Presence of coronary angioplasty implant and graft
CPT/HCPCS: 78452; 93017; A9500; J2785